=== PATIENT | female | born 1950 | race Caucasian/White ===

== ENCOUNTER 2022-08-30 17:00 | Outpatient (OUT) | payer MEDICARE, SELFPAY ==
[2022-08-30 17:29] LABS: Basophils Absolute Auto 0.1 10^3/uL (0.0-0.1); Eosinophils Absolute Auto 0.3 10^3/uL (0.0-0.7); Hematocrit 41.4 % (36.0-48.0); Immature Granulocytes Abs Auto 0.02 10^3/uL (0.00-0.03); Immature Granulocytes Pct Auto 0.3 % (0.0-0.5); Lymphocytes Absolute Auto 1.8 10^3/uL (1.2-3.8); Mean Corpuscular HGB Conc 33.8 g/dL (29.9-35.2); Mean Corpuscular Hemoglobin 29.2 pg (26.7-34.0); Mean Corpuscular Volume 86.3 fL (81.0-99.0); Mean Platelet Volume 9.5 fL (9.5-13.5); Monocytes Absolute Auto 0.5 10^3/uL (0.3-0.8); Monocytes Percent Auto 7.5 % (1.7-12.0); Neutrophils Absolute Auto 3.7 10^3/uL (1.4-6.5); Neutrophils Percent Auto 59.2 % (43.0-75.0); Platelet Count 224 10^3/uL (150-450); Red Cell Distribution Width 12.7 % (11.0-15.0); White Blood Count 6.3 10^3/uL (4.0-11.0)
[2022-08-30 17:43] LABS: Alanine Aminotransferase 20 U/L (14-59); Albumin Globulin Ratio 1.1; Albumin Level 3.5 g/dL (3.4-5.0); Alkaline Phosphatase 86 U/L (46-116); Aspartate Amino Transferase 15 U/L (15-37); BUN Creatinine Ratio 30.4; Bilirubin Total 0.4 mg/dL (0.2-1.0); Calcium 9.2 mg/dL (8.5-10.1); Carbon Dioxide 27.2 mmol/L (21.0-32.0); Chloride 108 mmol/L (98-107); Chol HDL Ratio 2.1; Cholesterol 121 mg/dL (<=200); Estimated GFR (African America >60 (>=60); Estimated GFR (Non-African Ame >60 (>=60); Globulin 3.1 g/dL; Glucose 110 mg/dL (74-106); HDL Cholesterol 59 mg/dL (40-60); Potassium 4.2 mmol/L (3.5-5.1); Sodium 142 mmol/L (136-145); Total Protein 6.6 g/dL (6.4-8.2); Triglycerides 95 mg/dL (<=150)
== END 2022-08-30 17:01 | disposition home or self-care (01) ==
PROVIDERS: PCP Internal Medicine; Visit Provider Internal Medicine
DX: I11.0 Hypertensive heart disease with heart failure (principal); I50.9 Heart failure, unspecified; E53.8 Deficiency of other specified B group vitamins; E78.5 Hyperlipidemia, unspecified; R82.90 Unspecified abnormal findings in urine
CPT/HCPCS: 36415; 80053; 80061; 82607; 85025; 87086; 87150; 87186

== ENCOUNTER 2022-08-30 21:10 | Outpatient (REF) | payer MEDICARE, SELFPAY | END 2022-08-30 21:11 | disposition home or self-care (01) | LOC: LAB 21:10 | PROVIDERS: PCP Internal Medicine; Visit Provider Internal Medicine | DX: R39.9 Unspecified symptoms and signs involving the genitourinary system (principal) ==

== ENCOUNTER 2022-10-08 16:41 | Outpatient (REF) | payer MEDICARE, SELFPAY | END 2022-10-08 16:42 | disposition home or self-care (01) | LOC: LAB 16:41 | PROVIDERS: PCP Internal Medicine; Visit Provider Internal Medicine | DX: N39.0 Urinary tract infection, site not specified (principal) | CPT/HCPCS: 87086; 87150; 87186 ==

== ENCOUNTER 2022-10-20 13:23 | Emergency (ER) | payer MEDICARE, SELFPAY ==
[2022-10-20] VITALS (22 sets, daily range): BP systolic 122–158; BP diastolic 56–86; PULSE 43–61; RESP 10–25; TEMP 36.3–36.6; O2SAT 92–100; BMI 26.5; BMI 26.3
--- NOTE | 2022-10-20 13:44 | CT_ITS ---
The [address] [address] Patient Name: FITZ GIFFORD MRN: [id number] date: 1950 Sex: F Assigned Patient Location: ED.MAIN Current Patient Location: ER Accession/Order Number: [id number] Exam Date: 10/20/2022 13:52 Report Date: 10/20/2022 14:15 At the request of: HECTOR ROBLES Procedure: CT stroke head/brain wo con CT stroke head/brain wo con, 10/20/2022 1:52 PM EDT INDICATION: Stroke symptoms COMPARISON: Noncontrast CT of the head 09/02/2021, 11/26/2021 TECHNIQUE: Axial CT images of the brain from skull base to vertex, including portions of the face and sinuses, were obtained without contrast. Multiplanar reformatted images were generated and reviewed as needed. FINDINGS: No intracranial mass, hydrocephalus, midline shift or acute hemorrhage. No extra-axial collection. Periventricular and deep white matter microvascular ischemic change. [place]-white matter differentiation is preserved. Remote left temporal lobe infarct. Remote lacunar infarct right head of the caudate nucleus. The paranasal sinuses and mastoid air cells are clear. Orbits are within normal limits. No acute skull fracture. CT/CT stroke head/brain wo con IMPRESSION: No acute intracranial abnormality. Electronically authenticated by: DAKOTA HOOD Date: 10/20/2022 14:15
--- NOTE | 2022-10-20 13:47 | ECG_ITS ---
The [facility] Test Date: 2022-10-20 Pat Name: FITZ GIFFORD Department: Room: - Gender: Female [employer] Developer: : 1950 Requested By: SHAIKH MILLIE Order Number: [id number] Reading MD: INDY MILLS Measurements Intervals [place] Rate: 47 P: 50 VA: 134 QRS: 49 QRSD: 88 T: 52 QT: 472 QTc: 433 Interpretive Statements 1130 Sinus bradycardia 9140 abnormal rhythm ECG No previous ECG available for comparison Electronically Signed On 10-21-2022 7:47:02 EDT by INDY MILLS
[2022-10-20 14:34] LABS: Basophils Absolute Auto 0.1 10^3/uL (0.0-0.1); Eosinophils Absolute Auto 0.3 10^3/uL (0.0-0.7); Eosinophils Percent Auto 4.6 % (0.9-7.0); Hematocrit 41.2 % (36.0-48.0); Hemoglobin 13.6 g/dL (12.0-16.0); Immature Granulocytes Abs Auto 0.02 10^3/uL (0.00-0.03); Immature Granulocytes Pct Auto 0.3 % (0.0-0.5); Lymphocytes Absolute Auto 1.8 10^3/uL (1.2-3.8); Lymphocytes Percent Auto 30.8 % (20.5-60.0); Mean Corpuscular Hemoglobin 29.4 pg (26.7-34.0); Mean Corpuscular Volume 89.2 fL (81.0-99.0); Monocytes Absolute Auto 0.5 10^3/uL (0.3-0.8); Monocytes Percent Auto 8.6 % (1.7-12.0); Neutrophils Absolute Auto 3.2 10^3/uL (1.4-6.5); Neutrophils Percent Auto 54.7 % (43.0-75.0); Platelet Count 182 10^3/uL (150-450); Red Blood Count 4.62 10^6/uL (4.20-5.40); White Blood Count 5.8 10^3/uL (4.0-11.0)
[2022-10-20 14:48] LABS: INR 1.01; Prothrombin Time 10.7 sec (9.0-11.6)
[2022-10-20 14:51] LABS: Alanine Aminotransferase 23 U/L (14-59); Albumin Level 3.2 g/dL (3.4-5.0); Alkaline Phosphatase 78 U/L (46-116); Anion Gap 10.3; Aspartate Amino Transferase 20 U/L (15-37); BUN Creatinine Ratio 23.9; Bilirubin Total 0.5 mg/dL (0.2-1.0); Calcium 8.9 mg/dL (8.5-10.1); Carbon Dioxide 26.4 mmol/L (21.0-32.0); Chloride 107 mmol/L (98-107); Estimated GFR (African America >60 (>=60); Estimated GFR (Non-African Ame >60 (>=60); Globulin 3.1 g/dL; Glucose 90 mg/dL (74-106); Potassium 3.7 mmol/L (3.5-5.1); Sodium 140 mmol/L (136-145); Total Protein 6.3 g/dL (6.4-8.2)
[2022-10-20 14:54] LABS: Troponin I High Sensitivity 5.5 pg/mL (4.0-51.3)
[2022-10-20 15:08] LABS: Ethanol <3 mg/dL
[2022-10-20] MEDS: MECLIZINE HCL 12.5 MG TABLET 25 MG PO (15:28)
[2022-10-20 16:00] LABS: Bilirubin Urine NEGATIVE (NEGATIVE); Blood Urine NEGATIVE (NEGATIVE); Clarity Urine CLEAR (CLEAR); Color Urine LT. YELLOW (YELLOW); Glucose Urine UA NEGATIVE (NEGATIVE); Ketones Urine NEGATIVE (NEGATIVE); Leukocyte Esterase Urine NEGATIVE (NEGATIVE); Nitrite Urine NEGATIVE (NEGATIVE); Protein Urine NEGATIVE (NEG/TRACE); Specific Gravity Urine <=1.005 (1.005-1.025); Urine Microscopic Indicated NO; Urobilinogen Urine 0.2 EU/dL (0.2-1.0)
--- NOTE | 2022-10-20 18:42 | ED.GENADUL1 ---
HPI - General Adult General Chief complaint: Neuro Symptoms/Deficit Stated complaint: DIZZY Time Seen by Provider: 10/20/22 13:47 Source: patient Mode of arrival: walk-in Limitations: no limitations History of Present Illness HPI narrative: The patient have history of previous stroke coming to the ER with a 24 hours history of vertigo she mentioned that the room started spinning all of a sudden yesterday and she also started having the symptoms today there was no nausea no vomiting no headache No chest pain and no weakness Related Data Home Medications Medication Instructions Recorded Confirmed amlodipine 2.5 mg tablet 2.5 mg PO DAILY 10/20/22 10/20/22 aspirin 81 mg chewable tablet 1 tab PO DAILY 10/20/22 10/20/22 baclofen 20 mg tablet 20 mg PO TID 10/20/22 10/20/22 clonazepam 0.5 mg tablet 0.5 mg PO BID 10/20/22 10/20/22 ferrous sulfate 325 mg (65 mg 325 mg PO DAILY 10/20/22 10/20/22 iron) tablet (FeroSul) furosemide 20 mg tablet 40 mg PO .every other day 10/20/22 10/20/22 metoprolol succinate 25 mg 25 mg PO DAILY 10/20/22 10/20/22 tablet,extended release 24 hr potassium chloride 10 mEq 10 meq PO DAILY 10/20/22 10/20/22 capsule,extended release quetiapine 50 mg tablet 50 mg PO DAILY 10/20/22 10/20/22 rosuvastatin 10 mg tablet 10 mg PO DAILY 10/20/22 10/20/22 topiramate 50 mg tablet 50 mg PO DAILY 10/20/22 10/20/22 Allergies Allergy/AdvReac Type Severity Reaction Status Date / Time Penicillins AdvReac Severe itch Verified 10/20/22 13:38 Review of Systems ROS Status of ROS 10 or more systems reviewed and unremarkable except as noted in history and below [facility] Social History Smoking status: Former smoker Exam Narrative Exam Narrative: Nurses notes and vital signs reviewed and patient is not hypoxic. General: Well-appearing and in no apparent distress. Skin: Warm, dry, no pallor noted. No rash. Head: Normocephalic, atraumatic. Neck: Supple, non-tender. Eye: Pupils are equal, round and EOMI. No scleral icterus. Ears, Nose, Mouth, and Throat: TM are clear, no nasal mucosal hypertrophy. Oral mucosa is moist, no posterior oropharynx erythema, uvula is mid-line Cardiovascular: Regular Rate and Rhythm without murmur, gallop or rub. Respiratory: No accessory muscle use or respiratory distress. Lungs are clear to auscultation, no wheezing, rales or rhonchi Chest Wall: no tenderness Back: No midline thoracic or lumbar vertebral tenderness. No CVA tenderness Musculoskeletal: normal ROM, no calf or popliteal tenderness, no lower extremity edema/swelling GI: Abdomen is soft, non-distended. Normal bowel sounds. No masses appreciated. No tenderness to palpation. No rebound, guarding, or rigidity noted. Neurological: A&O x4. No cranial nerve dysfunction observed. No truncal ataxia. Moves all extremities. Sensation intact. Psychiatric: Cooperative and interactive. Normal mood and affect. The patient's speech is slow but normal Constitutional Vital Signs, click to edit/add: Last Vital Signs Temp 97.3 F L 10/20/22 16:04 Pulse 49 L 10/20/22 16:04 Resp 14 10/20/22 16:04 BP 138/65 10/20/22 16:04 Pulse Ox 98 10/20/22 16:04 O2 Del Method Room Air 10/20/22 16:04 Course Vital Signs Vital signs: Vital Signs Temperature 97.8 F 10/20/22 13:33 Pulse Rate 60 10/20/22 13:33 Respiratory Rate 16 10/20/22 13:33 Blood Pressure 154/75 H 10/20/22 13:33 Pulse Oximetry 100 10/20/22 13:33 Oxygen Delivery Method Room Air 10/20/22 13:33 Temperature 97.3 F L 10/20/22 16:04 Pulse Rate 49 L 10/20/22 16:04 Respiratory Rate 14 10/20/22 16:04 Blood Pressure 138/65 10/20/22 16:04 Pulse Oximetry 98 10/20/22 16:04 Oxygen Delivery Method Room Air 10/20/22 16:04 Medical Decision Making MDM Narrative Medical decision making narrative: The patient EKG showing sinus rhythm heart rate was in the 40s no ST elevation or depression The patient CBC and chemistry showed no acute pathology and CT head as well was within negative The patient was treated in the ER with meclizine after which she was feeling better and she got to go to the bathroom multiple times The patient case was discussed with her primary care doctor Barb and he mentioned that the patient usually have vertigo as one of her complaints and is not a new complaint Right now the patient is able to ambulate with no difficulty she was discharged home with supportive care to follow-up with her doctor next week The patient is to follow up with primary care physician in next 2-3 days or to return to the emergency department should any of the signs or symptoms worsen or new symptoms develop. The patient agrees with the following Diagnosis and Treatment plan and the patient will be discharged home. Lab Data Labs: Lab Results 10/20/22 10/20/22 Range/Units 13:30 15:20 WBC 5.8 (4.0-11.0) 10^3/uL RBC 4.62 (4.20-5.40) 10^6/uL Hgb 13.6 (12.0-16.0) g/dL Hct 41.2 (36.0-48.0) % MCV 89.2 (81.0-99.0) fL MCH 29.4 (26.7-34.0) pg MCHC 33.0 (29.9-35.2) g/dL RDW 13.0 (11.0-15.0) % Plt Count 182 (150-450) 10^3/uL MPV 10.0 (9.5-13.5) fL Neut % (Auto) 54.7 (43.0-75.0) % Lymph % (Auto) 30.8 (20.5-60.0) % Murray % (Auto) 8.6 (1.7-12.0) % Eos % (Auto) 4.6 (0.9-7.0) % Baso % (Auto) 1.0 (0.2-2.0) % Neut # (Auto) 3.2 (1.4-6.5) 10^3/uL Lymph # (Auto) 1.8 (1.2-3.8) 10^3/uL Murray # (Auto) 0.5 (0.3-0.8) 10^3/uL Eos # (Auto) 0.3 (0.0-0.7) 10^3/uL Baso # (Auto) 0.1 (0.0-0.1) 10^3/uL Abs Immat Gran (auto) 0.02 (0.00-0.03) 10^3/uL Imm/Tot Granulo (auto) 0.3 (0.0-0.5) % PT 10.7 (9.0-11.6) sec INR 1.01 Sodium 140 (136-145) mmol/L Potassium 3.7 (3.5-5.1) mmol/L Chloride 107 (98-107) mmol/L Carbon Dioxide 26.4 (21.0-32.0) mmol/L Anion Gap 10.3 BUN 21.0 H (7.0-18.0) mg/dL Creatinine 0.88 (0.55-1.02) mg/dL Est GFR ( Amer) >60 (>=60) Est GFR (Non-Af Amer) >60 (>=60) BUN/Creatinine Ratio 23.9 Glucose 90 (74-106) mg/dL Calcium 8.9 (8.5-10.1) mg/dL Total Bilirubin 0.5 (0.2-1.0) mg/dL AST 20 (15-37) U/L ALT 23 (14-59) U/L Alkaline Phosphatase 78 (46-116) U/L Troponin I High Sens 5.5 (4.0-51.3) pg/mL Total Protein 6.3 L (6.4-8.2) g/dL Albumin 3.2 L (3.4-5.0) g/dL Globulin 3.1 g/dL Albumin/Globulin Ratio 1.0 Urine Color Lt. yellow (YELLOW) Urine Clarity Clear (CLEAR) Urine pH 7.0 (5.0-9.0) Ur Specific Gilbert <=1.005 A (1.005-1.025) Urine Protein Negative (NEG/TRACE) mg/dL Urine Glucose (UA) Negative (NEGATIVE) mg/dL Urine Ketones Negative (NEGATIVE) mg/dL Urine Occult Blood Negative (NEGATIVE) Urine Nitrite Negative (NEGATIVE) Urine Bilirubin Negative (NEGATIVE) Urine Urobilinogen 0.2 (0.2-1.0) EU/dL Ur Leukocyte Esterase Negative (NEGATIVE) Ethanol Quant <3 mg/dL Discharge Plan Discharge Chief Complaint: Neuro Symptoms/Deficit Clinical Impression: Vertigo Patient Disposition: Home, Self-Care Time of Disposition Decision: 15:41 Condition: Good Mode of Transportation: Private Vehicle Prescriptions / Home Meds: No Action amlodipine 2.5 mg tablet 2.5 mg PO DAILY aspirin 81 mg tablet,chewable 1 tab PO DAILY baclofen 20 mg tablet 20 mg PO TID clonazepam 0.5 mg tablet 0.5 mg PO BID ferrous sulfate [FeroSul] 325 mg (65 mg iron) tablet 325 mg PO DAILY furosemide 20 mg tablet 40 mg PO .every other day metoprolol succinate 25 mg tablet extended release 24 hr 25 mg PO DAILY potassium chloride 10 mEq capsule, extended release 10 meq PO DAILY quetiapine 50 mg tablet 50 mg PO DAILY rosuvastatin 10 mg tablet 10 mg PO DAILY topiramate 50 mg tablet 50 mg PO DAILY Instructions: Vertigo (ED) Stand Alone Forms: Portal Instructions Referrals: Shaikh Day MD [Primary Care Provider] - 1 week Discharge Date/Time: 10/20/22 16:07
== END 2022-10-20 16:07 | disposition home or self-care (01) ==
PROVIDERS: Emergency Provider Emergency Medicine; PCP Internal Medicine
DX: R42 Dizziness and giddiness (principal); Z86.73 Personal history of transient ischemic attack (TIA), and cerebral 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; Z79.82 Long term (current) use of aspirin; Z79.899 Other long term (current) drug therapy; Z87.891 Personal history of nicotine dependence
CPT/HCPCS: 36415; 70450; 80053; 80320; 81003; 84484; 85025; 85610; 93005; 99285

== ENCOUNTER 2022-11-22 14:29 | Outpatient (OUT) | payer MEDICARE, SELFPAY ==
--- NOTE | 2022-11-22 | MR_ITS ---
The [address] [address] Patient Name: FITZ GIFFORD MRN: [id number] date: 1950 Sex: F Assigned Patient Location: MRI Current Patient Location: MRI Accession/Order Number: [id number] Exam Date: 11/22/2022 14:55 Report Date: 11/22/2022 16:25 At the request of: SHAIKH MILLIE Procedure: MR head/brain wo con EXAM: MR head/brain wo con HISTORY: Cerebral infraction, unspecified I63.9 COMPARISON: CT brain 10/22/2022 TECHNIQUE: MRI of the brain was performed without contrast. FINDINGS: There is no restricted diffusion to suggest acute infarct. There is no midline shift, mass effect, or abnormal extraaxial fluid collections. The cortical sulci and ventricular system are within normal limits for age. There are areas of chronic infarct at left posterior temporal and parietal lobes. There are ex vacuo dilatation of temporal and occipital horns of the left lateral ventricle. There are remote lacunar infarcts at the right caudate nucleus, right fowler radiata and right cerebellar hemisphere. There are multiple scattered and confluent foci of T2/FLAIR signal abnormality in the subcortical and periventricular white matter, likely represent chronic microvascular ischemic changes. The major intracranial flow voids are visualized. The cerebellar tonsils are normal in position. The orbits are unremarkable. The paranasal sinuses are essentially clear. There is mild right mastoid effusion. MR/MR head/brain wo con IMPRESSION: No acute intracranial abnormality. Areas of chronic infarct at left posterior temporal and parietal lobes. Remote lacunar infarcts at the right caudate nucleus, right fowler radiata and right cerebellar hemisphere. Moderate chronic microvascular ischemic changes Electronically authenticated by: AMADEO TRANU Date: 11/22/2022 16:25
== END 2022-11-22 14:30 | disposition home or self-care (01) ==
LOC: MRI 14:30
PROVIDERS: PCP Internal Medicine; Visit Provider Internal Medicine
DX: I63.9 Cerebral infarction, unspecified (principal)
CPT/HCPCS: 70551

== ENCOUNTER 2023-02-13 14:51 | Outpatient (OUT) | payer MEDICARE, SELFPAY ==
[2023-02-13 15:37] LABS: Anion Gap 11.3; Calcium 9.2 mg/dL (8.5-10.1); Carbon Dioxide 26.2 mmol/L (21.0-32.0); Chloride 108 mmol/L (98-107); Estimated GFR (African America >60 (>=60); Estimated GFR (Non-African Ame >60 (>=60); Glucose 82 mg/dL (74-106); Potassium 3.5 mmol/L (3.5-5.1); Sodium 142 mmol/L (136-145)
[2023-02-13 15:50] LABS: Bilirubin Urine NEGATIVE (NEGATIVE); Blood Urine NEGATIVE (NEGATIVE); Clarity Urine CLEAR (CLEAR); Color Urine LT. YELLOW (YELLOW); Glucose Urine UA NEGATIVE (NEGATIVE); Ketones Urine NEGATIVE (NEGATIVE); Leukocyte Esterase Urine NEGATIVE (NEGATIVE); Nitrite Urine NEGATIVE (NEGATIVE); Protein Urine NEGATIVE (NEG/TRACE); Specific Gravity Urine 1.015 (1.005-1.025); Urobilinogen Urine 0.2 EU/dL (0.2-1.0); pH Urine 6.5 (5.0-9.0)
== END 2023-02-13 14:52 | disposition home or self-care (01) ==
LOC: LAB 14:53
PROVIDERS: PCP Internal Medicine; Visit Provider Nurse Practitioner
DX: R06.09 Other forms of dyspnea (principal); R60.0 Localized edema; I63.9 Cerebral infarction, unspecified; R30.0 Dysuria; I25.10 Atherosclerotic heart disease of native coronary artery without angina pectoris; I10 Essential (primary) hypertension; E78.2 Mixed hyperlipidemia
CPT/HCPCS: 36415; 80048; 81003; 87086; 87150; 87186

== ENCOUNTER 2023-02-20 14:35 | Outpatient (OUT) | payer MEDICARE, SELFPAY ==
--- OUTSIDE RECORDS SUMMARY | 2023-02-20 14:56 | XMS_ITS | CCD ---
Author Name Unknown Address [address] [place] [address] Organization [facility] Care Team Providers Care Physical Fitness Teacher Name Role Phone Denver Juarez Unavailable Susie Arrington Unavailable MD Eddy Day Primary Care Provider MD Susie Arrington R Attending Provider MD Gerry Hartley Primary Care Provider MD Eddy Day Attending Provider MD Denver Juarez Attending Provider [phone] Ilda Das Unavailable MD Eddy Day Primary Care Provider MD Gerry Hartley Primary Care Provider MD Eddy Day Attending Provider DO Rafiq Bahena Emergency Provider [phone] MD Ashleigh Card Admit Provider MD Ashleigh Card Attending Provider LESTER Castañeda Other Provider Unavailable DO Tye Mendoza Other Provider [phone] MD Betito Arellano Other Provider [phone] MD Aneesh Zendejas Other Provider [phone] MD Shavon Leos Other Provider [phone] MD Brayan Ribera Other Provider CÉSAR Arenas Other Provider MD Shefali Garibay Other Provider MD Vannessa Nava Other Provider MD Alissa Young Other Provider Jose [facility] Maddie Westbrook Other Provider MD Anna Valladares Attending Provider NO FAMILY PHYSICIAN, 837 Primary Care Unavail able MIKE VIDES, - LUIS Attending Unavaila MD Eddy Swenson Primary Care Provider DO Rafiq Bahena Emergency Provider Al Colette Cruz MD [facility] Ad[facility] Provider MD Anna Valladares Attending Provider [phone] MD Gerry Hartley Primary Care Provider MD Eddy Day Attending Provider [phone] Admitting Unavailable DAVID, LIZ Attending Unavailable FAWWAD, DE OLIVEIRA H Primary Care Unavailable FAWWAD, DE OLIVEIRA H Admitting Unavailable FAWWAD, DE OLIVEIRA H Attending Unavailable FAWWAD, DE OLIVEIRA H Primary Care Unavailable Nico, DR Senior Consulting Unavailable FAWWAD, DE OLIVEIRA H Consulting Unavailable DAVID, LIZ Admitting Unavailable DAVID, LIZ Attending Unavailable FAWWAD, DE OLIVEIRA H Primary Care Unavailable DAVID, LIZ Consulting Unavailable FAWWAD, DE OLIVEIRA H Primary Care Unavailable ALONSO JACOBS Admitting Unavailable ALONSO JACOBS Attending Unavailable Natacha Cerna Consulting Unavailable ALONSO JACOBS Consulting Unavailable SHANIA WASHINGTON Consulting Unavaila MANDI Chaidez Consulting Unavailable FAWWAD, DE OLIVEIRA H Primary Care Unavailable YANIV, DR RAMSAY Admitting Unavailable YANIV, DR RAMSAY Attending Unavailable YANIV, DR RAMSAY Consulting Unavailable GABI, DR ORTIZ Consulting Unavailable LUCI MARADIAGA Consulting Unavailable MITZI LOWRY Consulting Unavailable BASIM CABAN Consulting Unavailable DAVID, LIZ Admitting Unavailable DAVID, LIZ Attending Unavailable FAWWAD, DE OLIVEIRA H Primary Care Unavailable FAWWAD, DE OLIVEIRA H Admitting Unavailable FAWWAD, DE OLIVEIRA H Attending Unavailable FAWWAD, DE OLIVEIRA H Primary Care Unavailable DR MITZI CHAU Consulting Unavailable FAWWAD, DE OLIVEIRA H Consulting Unavailable RAYMUNDO, MEGHANN Admitting Unavailable RAYMUNDO, MEGHANN Attending Unavailable FAWWAD, DE OLIVEIRA H Primary Care Unavailable RAYMUNDO, MEGHANN Consulting Unavailable FAWWAD, DE OLIVEIRA H Admitting Unavailable FAWWAD, DE OLIVEIRA H Attending Unavailable FAWWAD, DE OLIVEIRA H Primary Care Unavailable FAWWAD, DE OLIVEIRA H Consulting Unavailable MIRI BALTAZAR Consulting Unavailable FAWWAD, DE OLIVEIRA H Admitting Unavailable FAWWAD, DE OLIVEIRA H Attending Unavailable FAWWAD, DE OLIVEIRA H Primary Care Unavailable FAWWAD, DE OLIVEIRA H Consulting Unavailable Indra Lozada Consulting Unavailable FAWWAD, DE OLIVEIRA H Admitting Unavailable FAWWAD, DE OLIVEIRA H Attending Unavailable FAWWAD, DE OLIVEIRA H Primary Care Unavailable FAWWAD, DE OLIVEIRA H Consulting Unavailable FAWWAD, DE OLIVEIRA H Admitting Unavailable FAWWAD, DE OLIVEIRA H Attending Unavailable FAWWAD, DE OLIVEIRA H Primary Care Unavailable DR MITZI CHAU Consulting Unavailable FAWWAD, DE OLIVEIRA H Consulting Unavailable FAWWAD, DE OLIVEIRA H Admitting Unavailable FAWWAD, DE OLIVEIRA H Attending Unavailable FAWWAD, DE OLIVEIRA H Primary Care Unavailable DR MITZI CHAU Consulting Unavailable FAWWAD, DE OLIVEIRA H Consulting Unavailable FAWWAD, DE OLIVEIRA H Primary Care Unavailable ALONSO JACOBS Admitting Unavailable ALONSO JACOBS Attending Unavailable ALONSO JACOBS Consulting Unavailable DORIAN GREENE Consulting Unavailable NATACHA CRUZ Consulting Unavailable FAWWAD, DE OLIVEIRA H Primary Care Unavailable NAEEM, DR GERRY Carrasco Admitting Unavailable NAEEM, DR GERRY Carrasco Attending Unavailable CHERISE, DR INDRA Carias Consulting Unavaildelia LUONG, DR INDRA Carias Procedure Practitioner Julia vailable NAEEM, DR GERRY Carrasco Consulting Unavailable ALONSO JACOBS Procedure Practitioner Unavail able ALONSO JACOBS Consulting Unavailable LYNN OLSON Consulting Unavailable INDRA DE LA ROSA Consulting Unavailable GALINDO LARRY Consulting Unavailable FAWWAD, DE OLIVEIRA H Primary Care Unavailable SHERRI MONTAGUE Consulting Unavailable EDDI, SHERRI Admitting Unavailable SHERRI MONTAGUE Attending Unavailable MARYSE LANGFORD Consulting Unavailable FAWWAD, DE OLIVEIRA H Attending Unavailable FAWWAD, DE OLIVEIRA H Primary Care Unavailable FAWWAD, DE OLIVEIRA H Consulting Unavailable FAWWAD, DE OLIVEIRA H Admitting Unavailable FAWWAD, DE OLIVEIRA H Primary Care Unavailable RADHA, ALONSO Admitting Unavailable ALONSO JACOBS Attending Unavailable JEAN-PIERRE GIRALDO Consulting Unavailable Natacha Cerna Consulting Unavailable ALONSO JACOBS Consulting Unavailable MD Eddy Day Primary Care Provider CÉSAR Harris Attending Provider [phone] Earline Harris Unavailable Kori Temple Unavailable Faajay, De Oliveira Primary Care Unavailable Earline Harris Admitting Unavailable Earline Harris Attending Unavailable Denver Juarez Attending Unavailabl e Fawwad, De Oliveira Primary Care Unavailable Denver Juarez Admitting Unavailabl e Fawwad, De Oliveira Admitting Unavailable Faajay, De Oliveira Primary Care Unavailable Shaikh Dya Attending Unavailable NICOLAS CARRILLO Attending Unavailable RAYMUNDO, MEGHANN Attending Unavailable MEGHANN FONSECA Attending Unavailable GERRY HARTLEY Referring Unavailable GERRY HARTLEY Primary Care Unavailable Allergies Allergy Classification Reported Allergen(s) Allergy Type Date of Onset Reaction(s) Facility (14 sources) Penicillin G Drug Allergy Unknown [facility] Other (8 sources) Penicillins; 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: [Penicillins] Allergy to substance 8 [facility] (1 source) Penicillin Drug Allergy 3 [facility] Medications Current Medications Medication Drug Class(es) Dates Sig (Normalized) Sig (Original) acetaminophen 325 mg oral tablet (20 sources) Start: 03-26-2019 take 325-650 mg by mouth once daily Acetaminophen Active 325 - 650 MG PO Daily March 26, 2019 4:28pm Start: 04-18-2018 End: 03-26-2019 take 325 mg by mouth every four hours Acetaminophen Discontinued 325 MG PO Q4H 0 April 18, 2018 12:00am March 26, 2019 4:28pm acetaminophen 325 mg / HYDROcodone bitartrate 5 mg oral tablet (1 source) Opioid Agonist Start: 03-31-2021 take 1-2 tablets by mouth every four to six hours as needed HYDROcodone-Acetaminophen 5-325 MG 1-2 tablet as needed Orally every 4-6 hrs for 7 days Mar, Active amLODIPine 2.5 mg oral tablet (1 source) Dihydropyridine Calcium Channel Jimmy take 1 tablet by mouth every twenty-fou r hours amLODIPine Besylate 2.5 MG 1 tablet Orally Once a day Active aspirin 81 mg delayed release oral tablet (20 sources) Platelet Aggregation Inhibitor, Nonsteroidal Anti-inflammatory Drug Start: 03-23-2020 take 81 mg by mouth once daily Aspirin Active 81 MG PO Daily March 23, 2020 12:00am Start: 03-26-2019 End: 03-23-2020 take 81 mg by mouth once daily in the morning Aspirin Discontinued 81 MG PO Every morning March 26, 2019 4:28pm March 23, 2020 12:03pm Start: 04-10-2018 End: 03-26-2019 take 81 mg by mouth once daily Aspirin Discontinued 81 MG PO Daily 0 April 18, 2018 12:00am March 26, 2019 4:28pm baclofen 20 mg oral tablet (17 sources) gamma-Aminobutyric Acid-ergic Agonist Start: 04-05-2018 take 20 mg by mouth three times daily Baclofen Active 20 MG PO Three times daily April 05, 2018 12:00am take 1 tablet by nemesio twice daily at mealtime as needed Baclofen 20 MG 1 tablet Administer witho ut regards to meals as needed Orally Twice a day Active take 1 tablet by mouth every eig ht hours Baclofen 20 MG 1 tablet with food or milk Orally every 8 hrs for 30 day(s) Active cephalexin 500 mg oral capsule (3 sources) Cephalosporin Antibacterial Start: 11-22-2021 take 500 mg by mouth three times daily Cephalexin Active 500 MG PO Three times daily 15 5 November 21, 2021 11:00pm clonazePAM 0.5 mg oral tablet (20 sources) Benzodiazepine Start: 12-12-2018 take 0.5 mg by mouth twice daily Clonazepam Active 0.5 MG PO Twice daily December 11, 2018 11:00pm Start: 04-05-2018 End: 04-18-2018 take 0.5 mg by mouth twice daily Clonazepam Discontinued 0.5 MG PO Twice daily April 05, 2018 12:00am April 18, 2018 6:51am take 1 tablet by nemesio th every twenty-four hours clonazePAM 0.5 MG 1 tablet at bedtime Orally Once a day Active clopidogrel 75 mg oral tablet (16 sources) P2Y12 Platelet Inhibitor Start: 12-12-2018 take 1 tablet by mouth once daily in the morning Clopidogrel (Plavix) 75 mg Tablet Active 75 MG PO Every morning December 11, 2018 11:00pm diclofenac sodium 0.01 mg/mg topical gel (6 sources) Nonsteroidal Anti-inflammatory Drug Start: 07-12-2021 Voltaren 1 % apply 1-2 grams to affected area Transdermal twice daily for 30 days Jul, Active doxycycline hyclate 100 mg oral capsule (1 source) Tetracycline-class Drug Start: 03-31-2021 take 1 capsule by mouth every twelve hours Doxycycline Hyclate 100 MG 1 capsule Orally Twice a day for 5 day(s) Mar, Active FeroSul (2 sources) FeroSul Active ferrous sulfate 325 mg oral tablet (15 sources) Start: 11-21-2021 take 1 tablet by mouth once daily Ferrous Sulfate (Ferosul) 325 mg (65 mg iron) tablet Active 325 MG PO Daily November 20, 2021 11:00pm Start: 12-12-2018 End: 02-18-2020 take 324 mg by mouth every other week Ferrous Sulfate Discontinued 324 MG PO EVERY 2 WEEKS December 12, 2018 9:27am February 18, 2020 12:28pm Start: 04-18-2018 End: 12-12-2018 take 324 mg by mouth twice daily Ferrous Sulfate Discontinued 324 MG PO Twice daily April 18, 2018 12:00am December 12, 2018 9:28am furosemide 20 mg oral tablet (18 sources) Loop Diuretic Start: 11-21-2021 take 20 mg by mouth once daily in the morning Furosemide Active 20 MG PO Every morning November 20, 2021 11:00pm take 2 tablets by mouth every ot her day Furosemide 20 MG 2 tablets Orally every other day Active ondansetron 8 mg disintegrating oral tablet (4 sources) Serotonin-3 Receptor Antagonist Start: 09-22-2021 take 1 tablet by mouth every eight hours as needed Ondansetron 8 MG 1 tablet on the tongue and allow to dissolve as needed Orally every 8 hours as needed for 3 days Sep, Active QUEtiapine 50 mg oral tablet (19 sources) Atypical Antipsychotic Start: 03-26-2019 take 50 mg by mouth once daily at bedtime Quetiapine Active 50 MG PO Daily at bedtime March 26, 2019 12:00am rosuvastatin calcium 10 mg oral tablet (20 sources) HMG-CoA Reductase Inhibitor Start: 12-12-2018 take 1 tablet by mouth once daily at bedtime Rosuvastatin (Crestor) 10 mg Tablet Active 10 MG PO Daily at bedtime December 11, 2018 11:00pm Start: 04-10-2018 End: 05-18-2018 take 1 tablet by mouth at bedtime Rosuvastatin (Crestor) 10 mg Tablet Discontinued 10 MG PO Bedtime April 18, 2018 6:54am May 17, 2018 11:02pm take 1 tablet by nemesio th every twenty-four hours Rosuvastatin Calcium 20 MG 1 tablet Orally Once a day Active Rosuvastatin Jimy cium Active topiramate 50 mg oral tablet (5 sources) Start: 11-21-2021 take 50 mg by mouth once daily Topiramate Active 50 MG PO Daily November 20, 2021 11:00pm Vitamin B-12 1000 MCG (7 sources) take 1 tablet by mouth once daily Vitamin B-12 1000 MCG 1 tablet Orally Once a day Active vitamin b12 2 mg extended release oral tablet (11 sources) Vitamin B12 Start: 11-22-2021 Cyanocobalamin (Vitamin B-12) (Vitamin B-12) 2,000 mcg Tablet Extended Release Active 1000 MCG PO Daily November 22, 2021 3:44pm Start: 03-23-2020 End: 11-22-2021 take 1 tablet by mouth once daily Cyanocobalamin (Vitamin B-12) (Vitamin B-12) 2,000 mcg Tablet Extended Release Discontinued 2000 MCG PO Daily March 23, 2020 12:00am November 22, 2021 3:44pm take 1 tablet by nemesio th every twenty-four hours Vitamin B-12 1000 MCG 1 tablet Orally Once a day Not-Taking Completed/Discontinued Medications Medication Drug Class(es) Dates Sig (Normalized) Sig (Original) cetirizine hydrochloride 10 mg oral tablet (5 sources) Histamine-1 Receptor Antagonist Start: 02-18-2020 End: 11-21-2021 take 1 tablet by mouth once daily Cetirizine (All Day Allergy (Cetirizine)) 10 mg Tablet Discontinued 10 MG PO Daily February 18, 2020 12:00am November 21, 2021 10:26am docusate sodium 100 mg oral capsule (19 sources) Start: 04-18-2018 End: 12-12-2018 take 100 mg by mouth twice daily Docusate Sodium Discontinued 100 MG PO Twice daily April 18, 2018 12:00am December 12, 2018 9:29am take [address] [facility] every twenty-four hours Docusate Sodium 100 MG 1 capsule as needed Orally Once a day for 30 day(s) Not-Taking hydroCHLOROthiazide 12.5 mg oral tablet (5 sources) Thiazide Diuretic Start: 12-12-2018 End: 03-23-2020 take 12.5 mg by mouth once daily in the morning Hydrochlorothiazide Discontinued 12.5 MG PO Every morning December 11, 2018 11:00pm March 23, 2020 12:05pm hydroCHLOROthiazide 12.5 mg / lisinopril 10 mg oral tablet (20 sources) Thiazide Diuretic, Angiotensin Converting Enzyme Inhibitor Start: 04-05-2018 End: 03-26-2019 take 1 tablet by mouth once daily Lisinopril-Hydrochloro thiazide Discontinued 1 TAB PO Daily April 18, 2018 6:54am March 26, 2019 4:28pm Lisinopril-hydro CHLOROthiazide Active ibuprofen 800 mg oral tablet (5 sources) Nonsteroidal Anti-inflammatory Drug Start: 04-05-2018 End: 04-18-2018 take 800 mg by mouth three times daily Ibuprofen Discontinued 800 MG PO Three times daily April 05, 2018 12:00am April 18, 2018 6:51am 24 hr metoprolol succinate 25 mg extended release oral tablet (20 sources) beta-Adrenergic Jimmy Start: 04-05-2018 End: 11-22-2021 take 25 mg by mouth once daily in the morning Metoprolol Succinate Discontinued 25 MG PO Every morning March 26, 2019 4:33pm November 22, 2021 12:21pm take 1 capsule by mouth once shayna ly Metoprolol Succinate 25 MG 1 capsule Orally Once a day for 30 day(s) Active naproxen 500 mg oral tablet (5 sources) Nonsteroidal Anti-inflammatory Drug Start: 04-05-2018 End: 04-18-2018 take 500 mg by mouth twice daily Naproxen Discontinued 500 MG PO Twice daily April 05, 2018 12:00am April 18, 2018 6:51am traZODone (10 sources) Serotonin Reuptake Inhibitor Start: 03-26-2019 End: 03-26-2019 Trazodone Discontinued TABLET March 26, 2019 12:00am March 26, 2019 5:06pm Start: 03-26-2019 End: 03-26-2019 Trazodone Discontinued TABLE T March 26, 2019 1:00am March 26, 2019 6:06pm Start: 06-05-2018 take 1 tablet by nemesio th every twenty-four hours traZODone HCl 100 MG 1 tablet at bedtime Orally Once a day for 30 day(s) May, Not-Taking triamcinolone acetonide 40 mg/ml injectable suspension (10 sources) Corticosteroid Start: 05-31-2021 Kenalog-40 May, 20 mg Problems Active Problems Problem Classification Problem Date Documented Da te Episodic/Chronic Acute and unspecified renal failure (8 sources) Injury of kidney; 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: [Acute kidney failure, unspecified] Onset: 10-25-2021 11-21-2021 Episodic Acute cerebrovascular disease (20 sources) Cerebrovascular accident due to thrombus of left middle cerebral artery; 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: [Cerebral infarction due to thrombosis of left middle cerebral artery] Onset: 01-18-2022 04-11-2018 Chronic Administrative/social admission (8 sources) Other reduced mobility; 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: [Impaired mobility and activities of daily living] 04-11-2018 Episodic Cardiac dysrhythmias (10 sources) Bradycardia; 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: [Bradycardia, unspecified] 11-21-2021 Episodic Chronic kidney disease (1 source) Chronic kidney disease; 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: [CHRONIC KIDNEY DISEASE STAGE 3A] Onset: 10-25-2021 Congestive heart failure; nonhypertensive (1 source) Heart failure, unspecified; 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: [HEART FAILURE UNSPECIFIED] Onset: 01-31-2022 Chronic Coronary atherosclerosis and other heart disease (8 sources) Atherosclerotic heart disease of inupiat coronary artery without angina pectoris; 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: [Other forms of angina pectoris] Onset: 02-21-2022 Chronic Deficiency and other anemia (1 source) Iron deficiency anemia secondary to blood loss (chronic); 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: [IRON DEFIC ANEMIA SEC BLD LOSS CHRN] Onset: 10-25-2021 Chronic Deficiency and other anemia (5 sources) Anemia; 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: [Anemia, unspecified] 04-11-2018 Episodic Disorders of lipid metabolism (9 sources) Hyperlipidemia; 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: [Hyperlipidemia, unspecified] Onset: 01-19-2022 04-11-2018 Chronic Essential hypertension (10 sources) Hypertensive disorder; 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: [Essential (primary) hypertension] Onset: 01-18-2022 04-11-2018 Chronic Fluid and electrolyte disorders (2 sources) Hypokalemia; 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: [Dehydration] Onset: 08-01-2021 Episodic Genitourinary symptoms and ill-defined conditions (7 sources) Dysuria; 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: [Dysuria] Onset: 03-02-2022 Episodic Headache; including migraine (1 source) Headache; including migraine; 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: [HEADACHE UNSPECIFIED] Onset: 08-01-2021 Heart valve disorders (1 source) Nonrheumatic mitral (valve) insufficiency; 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: [NONRHEUMATIC MITRAL INSUFFICIENCY] Onset: 02-27-2022 Chronic Hypertension with complications and secondary hypertension (1 source) Hypertensive chronic kidney disease with stage 1 through stage 4 chronic kidney disease, or unspecified chronic kidney disease; 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: [HTN CKD W/STAGE 1-4 CKD/UNS CKD] Onset: 11-28-2021 Chronic Intracranial injury (7 sources) History of traumatic brain injury; 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: [Personal history of traumatic brain injury] 04-11-2018 Episodic Mood disorders (1 source) Major depressive disorder, single episode, unspecified; 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: [ANDREWS DEPRESS D/O SINGLE EPIS UNS] Onset: 08-01-2021 Chronic Nutritional deficiencies (4 sources) Deficiency of other specified B group vitamins; 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: [DEFICIENCY SPEC B GROUP VITAMINS] Onset: 11-27-2021 Episodic Occlusion or stenosis of precerebral arteries (20 sources) Bilateral stenosis of carotid arteries; 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: [Occlusion and stenosis of bilateral carotid arteries] Onset: 11-10-2020 Resolved: 09-27-2021 Chronic Osteoarthritis (13 sources) Arthritis of hand; 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: [Primary osteoarthritis, right hand] Onset: 07-12-2021 Resolved: 09-20-2021 Chronic Other and ill-defined cerebrovascular disease (14 sources) Cerebrovascular disease; 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: [Cerebrovascular disease, unspecified] Chronic Other and ill-defined cerebrovascular disease (1 source) Cerebrovascular disease, unspecified; 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: [CEREBROVASCULAR DISEASE UNSPECIFIED] Onset: 11-28-2021 Chronic Other circulatory disease (5 sources) History of cardiovascular surgery; 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: [Presence of other cardiac implants and grafts] 04-11-2018 Chronic Other connective tissue disease (1 source) Presence of right artificial knee joint; 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: [PRESENCE RT ARTIFICIAL KNEE JOINT] Onset: 11-28-2021 Chronic Other connective tissue disease (1 source) Presence of unspecified artificial knee joint; 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: [PRESENCE UNS ARTIFICIAL KNEE JOINT] Onset: 08-01-2021 Chronic Other connective tissue disease (4 sources) Other specified soft tissue disorders; 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: [OTHER SPEC SOFT TISSUE DISORDERS] Onset: 01-31-2022 Episodic Other gastrointestinal disorders (5 sources) Dysphagia; 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: [Dysphagia, unspecified] 04-11-2018 Episodic Other hereditary and degenerative nervous system conditions (5 sources) Dystonia; 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: [Dystonia, unspecified] 04-11-2018 Chronic Other lower respiratory disease (2 sources) Other forms of dyspnea; 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: [Other forms of dyspnea] Onset: 02-13-2023 Episodic Other nervous system disorders (1 source) Difficulty in walking, not elsewhere classified; 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: [DIFFICULTY IN WALKING NEC] Onset: 11-28-2021 Chronic Other nervous system disorders (1 source) Aphasia; 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: [APHASIA] Onset: 05-10-2021 Chronic Other nervous system disorders (1 source) Other abnormalities of gait and mobility; 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: [Other abnormalities of gait and mobility] Onset: 01-21-2023 Episodic Other screening for suspected conditions (not mental disorders or infectious disease) (15 sources) Patient encounter status; 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: [Encounter for screening for malignant neoplasm of colon] Onset: 05-10-2021 12-16-2018 Episodic Other skin disorders (1 source) Localized swelling, mass and lump, left lower limb; 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: [LOC SWELL MASS LUMP LT LOWER LIMB] Onset: 01-31-2022 Episodic Ovarian cyst (7 sources) Unspecified ovarian cyst, unspecified side; 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: [Unspecified ovarian cyst, right side] Onset: 10-25-2021 Episodic Peripheral and visceral atherosclerosis (1 source) Peripheral vascular disease, unspecified; 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: [PERIPHERAL VASCULAR DISEASE UNS] Onset: 02-22-2022 Chronic Residual codes; unclassified (5 sources) Confusional state; 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: [Disorientation, unspecified] 10-26-2020 Episodic Residual codes; unclassified (4 sources) Altered mental status; 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: [Altered mental status, unspecified] 11-21-2021 Episodic Residual codes; unclassified (1 source) Pain, unspecified; 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: [Pain, unspecified] Onset: 02-16-2023 Episodic Unclassified (3 sources) COUGH, UNSPECIFIED; 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: [COUGH, UNSPECIFIED] Onset: 01-08-2022 Unclassified (1 source) CHRN KIDNEY DISEASE STG 3 UNSP; 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: [CHRN KIDNEY DISEASE STG 3 UNSP] Onset: 11-28-2021 Unclassified (1 source) Occlusion and stenosis of bilateral carotid arteries; 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: [Occlusion and stenosis of bilateral carotid arteries] Onset: 04-04-2022 Varicose veins of lower extremity (18 sources) Varicose veins of lower extremity; 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: [Varicose veins of bilateral lower extremities with other complications] Onset: 02-20-2022 Episodic Viral infection (2 sources) COVID-19; 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: [COVID-19] Onset: 09-07-2021 Resolved: 09-22-2021 Past or Other Problems Problem Classification Problem Date Documented Da te Episodic/Chronic Calculus of urinary tract (1 source) Personal history of urinary calculi; 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: [PERSONAL HISTORY OF URINARY CALCULI] Onset: 2 Episodic Deficiency and other anemia (4 sources) Anemia, unspecified; 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: [ANEMIA UNSPECIFIED] Onset: 2 Episodic E Codes: Fall (2 sources) Fall on same level, unspecified, initial encounter; 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: [Fall (on) (from) unspecified stairs and steps, initial encounter] Onset: 2 Episodic Fracture of upper limb (6 sources) Other fractures of lower end of left radius, subsequent encounter for closed fracture with routine healing; 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: [Unspecified fracture of the lower end of left radius, initial encounter for closed fracture] Onset: 2 Resolved: 2 Episodic Fracture of upper limb (3 sources) Nondisplaced fracture of proximal phalanx of right middle finger, initial encounter for closed fracture Onset: 2 Resolved: 2 Episodic Gastrointestinal hemorrhage (3 sources) Gastrointestinal hemorrhage, unspecified; 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: [Melena] Onset: 2 Episodic Malaise and fatigue (5 sources) Weakness; 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: [WEAKNESS] Onset: 2 Episodic Nausea and vomiting (1 source) Nausea with vomiting, unspecified Onset: 2 Resolved: 2 Episodic Other aftercare (1 source) care home (current) use of aspirin; 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: [RESIDENTIAL CURRENT USE OF ASPIRIN] Onset: 2 Episodic Other aftercare (1 source) Other care home (current) drug therapy; 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: [OTH RESIDENTIAL CURRENT DRUG THERAPY] Onset: 2 Episodic Other aftercare (1 source) Encounter for follow-up examination after completed treatment for conditions other than malignant neoplasm; 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: [ENC F/U EX AFTR CMPL TX NOT MAL SU] Onset: 2 Episodic Other aftercare (1 source) 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; 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: [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/ANTIPLATL ETS] Onset: 2 Episodic Other circulatory disease (1 source) Personal history of transient ischemic attack (TIA), and cerebral 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; 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: [PERS HX TIA AND CI NO RESID DEFICIT] Onset: 2 Episodic Other connective tissue disease (3 sources) Pain in right hand Onset: 2 Resolved: 2 Episodic Other gastrointestinal disorders (1 source) Bariatric surgery status; 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: [BARIATRIC SURGERY STATUS] Onset: 2 Episodic Other injuries and conditions due to external causes (1 source) History of falling; 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: [HISTORY OF FALLING] Onset: 2 Episodic Other lower respiratory disease (1 source) Other nonspecific abnormal finding of lung field; 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: [OTH NONSPECIFIC ABN FIND LNG FIELD] Onset: 2 Episodic Other non-traumatic joint disorders (3 sources) Pain in left wrist; 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: [PAIN IN LEFT WRIST] Onset: 2 Episodic Residual codes; unclassified (5 sources) Other specified postprocedural states Onset: 2 Resolved: 2 Episodic Residual codes; unclassified (7 sources) Altered mental status, unspecified; 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: [Altered mental status] Onset: 2 11-21-2021 Episodic Residual codes; unclassified (1 source) Acquired absence of other specified parts of digestive tract; 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: [ACQ ABSENCE OTH PART DIGESTV TRACT] Onset: 2 Episodic Residual codes; unclassified (1 source) Acquired absence of both cervix and uterus; 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: [ACQUIRED ABSENCE BOTH CERVIX AND UTERUS] Onset: 2 Episodic Residual codes; unclassified (1 source) Sleep disorder, unspecified; 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: [SLEEP DISORDER UNSPECIFIED] Onset: 2 Episodic Residual codes; unclassified (3 sources) Disorientation, unspecified; 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: [DISORIENTATION UNSPECIFIED] Onset: 2 Episodic Residual codes; unclassified (2 sources) Localized edema; 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: [Localized edema] Onset: 3 Episodic Screening and history of mental health and substance abuse codes (1 source) Personal history of nicotine dependence; 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: [PERSONAL HISTORY OF NICOTINE DEPEND] Onset: 2 Episodic Spondylosis; intervertebral disc disorders; other back problems (1 source) Cervicalgia; 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: [CERVICALGIA] Onset: 2 Episodic Unclassified (1 source) COUGH, UNSPECIFIED; 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: [COUGH, UNSPECIFIED] Onset: 2 Urinary tract infections (1 source) Urinary tract infection, site not specified; 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: [UTI SITE NOT SPECIFIED] Onset: 2 Episodic Results Test Name Value Interpretation Reference Range Facility 37on 02-13-2023 37 Decrease amount of fluids your drinking to about 1.5 liters/day Take lasix 40 mg daily and increase potassium to 20 meq daily Have labs drawn in 1 week Call for appointment with neuro Normal [facility] Office Visiton 02-13-2023 Follow-up visit [id number] Ozzie Gifford 1950 F Date Provider Department Center 02/13/2023 Niki-MEGHANN FONSECA Family History Problem Relation Age of Onset Hypertension Mother Hypertension Father Heart attack Brother Family Status - Relation Status Age at Mother Father Brother Level of Service:77860 MI OFFICE/OUTPATIENT ESTABLISHED MOD MDM 30 MIN Normal [facility] Urinalysis - AUTOMATEDon Appearance (U) cloudy [employer] Other Bilirubin Ql (U) Negative reMail ast [employer] Other Color (U) yellow [employer] Other Glucose Ql (U) Negative [employer] Other Hemoglobin Ql (U) Negative Reduce Data oast [employer] Other Ketones Ql (U) Negative [employer] Other Leukocyte esterase Test strip Ql (U) Negative [employer] Other Nitrite Ql (U) Negative [employer] Other pH (U) 6.0 [pH] [employer] Other Protein Ql (U) Negative [employer] Other Specific gravity (U) [Rel density] 1.030 [employer] Other Urobilinogen (U) [Mass/Vol] 1.0 mg/dL [employer] Other Urinalysis - AUTOMATED No rt [facility] Other Office Visiton 08-28-2022 Follow-up visit [id number] Ozzie Gifford 1950 F Date Provider Department Center 08/28/2022 NICOLAS MARCANO VANIA [facility] Family History Problem Relation Age of Onset Hypertension Mother Hypertension Father Heart attack Brother Family Status - Relation Status Age at Mother Father Brother Level of Service:58307 MI OFFICE/OUTPATIENT ESTABLISHED MOD MDM 30-39 MIN Reason for Visit and Comments: Follow-up [332697] - 6 month follow up Normal [facility] US carotid doppler BIon 02- US carotid doppler [facility] Main [place] [address] [place] [address] Ultrasound Report Signed Patient: Ozzie Gifford MR#: [id number] : 1950 Acct:[id number] Age/Sex: 71 / F ADM Date: 04/04/22 Loc: [facility] Room: Type: [facility] Attending Dr: Denver Juarez MD Ordering Provider: Denver Juarez MD Date of Service: 04/04/22 US/US carotid doppler BI: I65.23 Copies to: Denver Juarez MD CAROTID DUPLEX INDICATION: Carotid surveillance after prior right carotid endarterectomy PROCEDURE: Color-flow duplex scanning is used to interrogate the extracranial carotid arterial system, as well as both vertebral arteries. Both carotid bifurcations show some smooth homogeneous plaque formation. The proximal right internal carotid artery shows a highest peak systolic velocity of 145 cm/s with an end-diastolic velocity of 29 cm/s . The mid internal carotid artery measures 118 cm/s peak systolic with an end diastolic velocity of 22.7 cm/s . The distal segment measures 74.7 cm/s peak systolic with an end diastolic velocity of 16.5 cm/s . The velocities of the right common carotid artery are 80.1 cm/s peak systolic and 9.94 cm/s end-diastolic and 98.8 cm/s peak systolic and 17.2 cm/s end diastolic distally. The peak systolic velocity ratio of the internal to the common carotid artery is 1.47 . The external carotid artery measures 139 cm/s peak systolic. The right vertebral artery is patent at 35.2 cm/s peak systolic with antegrade flow. The proximal left internal carotid artery shows a highest peak systolic velocity of 83.1 cm/s with an end-diastolic velocity of 10.6 cm/s . The mid internal carotid artery measures 96 cm/s peak systolic with an end diastolic velocity of 16.8 cm/s . The distal segment measures 53.6 cm/s peak systolic with an end diastolic velocity of 10.4 cm/s . The velocities of the left common carotid artery are 45.9 cm/s peak systolic and 7.32 cm/s end-diastolic and 41.7 cm/s peak systolic and 7.44 cm/s end diastolic distally. The peak systolic velocity ratio of the internal to the common carotid artery is 2.3 . The external carotid artery measures 12 cm/s peak systolic. The left vertebral artery is patent at 92.9 cm/s peak systolic with antegrade flow. US/US carotid doppler BI IMPRESSION: MILD PLAQUE FORMATION IS NOTED BILATERALLY, WITH LESS THAN 50% STENOSIS OF BOTH EXTRACRANIAL INTERNAL CAROTID ARTERY. BOTH VERTEBRAL ARTERIES ARE PATENT WITH ANTEGRADE FLOW. Impression dictated by: Denver Juarez MD04/04/2022 3:28 PM [facility] Tech: Selin Oglesby Transcribed By: [facility] 04/04/22 1528 Dictated By: Denver Juarez MD 04/04/22 1528 Signed By: 04/04/22 1528 [facility] 37on 03-05-2022 37 Start Isosorbide/Imdur 30 mg daily in the morning- for chest pain Call office for any concerns, worsening chest pain, worsening headache, lightheadedness/dizzi ness. Normal [facility] Office Visiton 03-05-2022 Follow-up visit [id number] Ozzie Gifford 1950 F Date Provider Department Center 03/05/2022 Niki-MEGHANN FONSECA BH CARD [facility] Family History Problem Relation Age of Onset Hypertension Mother Hypertension Father Heart attack Brother Family Status - Relation Status Age at Mother Father Brother Level of Service:54323 MI OFFICE/OUTPATIENT ESTABLISHED MOD MDM 30-39 MIN Normal [facility] Urine Cultureon 03-02-2022 Bacteria identified Cx Nom (U) Reason for Exam Dysuria Urine ORGANISM: Escherichia coli (O:ESCCOL) [place] Count 20,000 Aerobic QUINTIN Charge (NMIC56) ---- SUSCEPTIBILITY --- ORGANISM: O:ESCCOL ANTIBIOTIC INTERPRETATION QUINTIN Amikacin S <16 Amoxacillin/K Clavulanate S <8 Ampicillin S <8 Ampicillin/Sulbactam S <4 Aztreonam S <4 Cefazolin S <2 Cefepime S <2 Ceftazidime S <1 Ceftazidime/Avibactam S <4 Ceftolozane/Tazobacta m S <2 Ceftriaxone S <1 Cefuroxime S <4 Ciprofloxacin S <0.25 Ertapenem S <0.5 Gentamicin S <2 Levofloxacin S <0.5 Meropenem S <1 Meropenem/Vaborbactam S <2 Nitrofurantoin S <32 Piperacillin/Tazobact am S <8 Tetracycline S <4 Tigecycline S <2 Tobramycin S <2 Trimethoprim/Sulfamet hoxazole S <0.5 S = SUSCEPTIBLE I = INTERMEDIATE R = RESISTANT BLANK = DATA NOT AVAILABLE, OR DRUG NOT ADVISABLE OR TESTED R* = RESISTANCE DUE TO EXTENDED SPECTRUM BETA-LACTAMASES ESBL = EXTENDED SPECTRUM BETA-LACTAMASE TFG = THYMIDINE-DEPENDENT STRAIN ANA = BETA-LACTAMASE POSITIVE IB = INDUCIBLE BETA-LACTAMASE. APPEARS IN PLACE OF 'S' WITH SPECIES KNOWN TO POSSESS INDUCIBLE BETA-LACTAMASES. POTENTIALLY THEY MAY BECOME RESISTANT TO ALL B-LACTAM DRUGS. PERFORMED BY: [place] [id number] PATHOLOGIST BIOLOGICAL SCIENCE TECHNICIAN FISH YOCASTA BYRNE M.D. [facility] Comment on above: Performed By: #### C UU #### [address] ECHOCARDIO M/2D COMPLETEon 0 02-21-2022 ECHOCARDIO M/2D COMPLETE Patient: OZZIE GIFFORD Exam Date: 02/21/2022 : 1950 Gender:F Ordering : MEGHANN FONSECA Admission #: [id number] Family : SHAIKH Korina ROMOAJAY . Order #: [id number] CLICK HERE TO VIEW EXAM ECHOCARDIOGRAM REPORT PROCEDURE: CARDIO PULMONARY ECHOCARDIO M/2D COMP INDICATIONS: CAD, HTN, Mitral Regurgitation, Evaluate MR; Edema COMPARISON: None. DESCRIPTION: COMPLETE ECHOCARDIOGRAM Real-time transthoracic echocardiography with 2D, M-mode, spectral and color flow Doppler performed. QUALITY: Technical quality was good. 64 164# 152/90 HR 61 LEFT VENTRICLE: Normal chamber size. Proximal septal hypertrophy (sigmoid septum). LV EF: Global left ventricular systolic function is normal. Visual estimation of left ventricular ejection fraction is 65%. No regional wall motion abnormalities. DIASTOLIC: Diastolic function is indeterminate. ATRIAL SEPTUM: Inadequately seen. LEFT ATRIUM: Mild dilatation. RIGHT ATRIUM: Normal chamber size. RIGHT VENTRICLE:Normal chamber size. Normal right ventricular systolic function. TRICUSPID VALVE:Normal mobility and thickness. No stenosis with mild regurgitation. No evidence of pulmonary hypertension. RVSP 34 mmHg MITRAL VALVE: Mildly thickened with normal mobility. No evidence of mitral valve stenosis. Mild mitral annular calcification. Mild mitral regurgitation. AORTIC VALVE: Normal trileaflet appearance. Mildly calcified aortic valve. No evidence of aortic valve stenosis. Trivial aortic regurgitation. AORTIC ROOT: Normal diameter and appearance. Normal aortic arch. PULMONIC VALVE: Normal thickness and mobility. No stenosis. Trivial regurgitation. PERICARDIUM: No evidence of pericardial effusion. IVC: Collapses with inspirations. IVC is normal in size. CONCLUSION: Global left ventricular systolic function is normal; visually estimated ejection fraction is 60 to 65%. No regional wall motion abnormalities. Diastolic function is indeterminate. The left atrium is dilated. Right ventricle is normal in size and systolic function. Mild tricuspid regurgitation. Mild mitral regurgitation. Adult Echocardiography Procedure Report Left Ventricle LVEDD (3.7 - 5.6 cm): 3.74 cm LVESD (2.2 - 4.0 cm): 2.39 cm LVPW thickness (0.5 - 1.0 cm): 0.91 cm LVOT Max Gradient: 3.06 mm[Hg] Peak Velocity (LVOT): 0.88 m/s LVOT Diameter 1.96 cm Left Ventricular Ejection Fraction: 66.62 %, 66.62 % Left Atrium LA Volume Index (2D A2C): 67.81 ml, 61.58 ml Left Atrium Systolic Dimension: 3.80 cm Mitral Valve MV E to A Ratio: 1.28 Mitral Valve A-Wave Peak Velocity: 0.78 m/s Mitral Valve E-Wave Peak Velocity: 1.00 m/s Right Ventricle RV Internal Diastolic Dimension: 3.34 cm Aorta AO Root Diam: 3.05 cm Aortic Valve AoV Area (Peak Shen): 1.54 cm2, 1.54 cm2 Peak Velocity(Antegrade Flow): 1.71 m/s Peak Gradient(Antegrade Flow): 11.76 mm[Hg] Tricuspid Valve Peak Velocity (Regurgitant Flow): 2.19 m/s, 2.41 m/s, 2.79 m/s Peak Velocity: 0.52 m/s Pulmonic Valve Peak Velocity: 0.74 m/s Peak Gradient: 2.21 mm[Hg] Right Atrium Dictated by: Jacklyn Doty M.D. on 02/22/2022 at 12:57 Approved by: Jacklyn Doty M.D. on 02/22/2022 at 13:00 Normal [facility] VC COMP CONSULTATIONon 02-20 VC COMP CONSULTATION Patient: OZZIE GIFFORD Exam Date: 02/20/2022 : 1950 Gender:F Ordering : SHAIKH Korina DAY . Admission #: [id number] Family : Order #: [id number] CLICK HERE TO VIEW EXAM RADIOLOGY REPORT PROCEDURE: VC VEIN CENTER CONSULTATION VEIN CENTER - OFFICE VISIT INITIAL COMPARISON: None. PROGRESS NOTES: 71-year-old female who presents with a 5 year history of lower extremity pain and swelling. The patient's left leg is worse than the right leg. The patient rates the pain as a 10 a scale of 1-10 describes the pain as burning, severe with any type of palpation or use of tight-fitting clothing. The patient's symptoms are in the entire leg most significant below the knee. The patient's swelling progresses over the course of the day with minimal to no resolution at night. Patient's symptoms are only minimally relieved by rest, leg elevation over an over the counter oral analgesics. The patient has worn several types of knee high compression stockings which she has low tolerance due to the pain. The patient denies any signs and symptoms to suggest arterial ischemia. 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 The patient describes a family history significant for a daughter who of lung cancer in 2012 cancer in multiple relatives. , 1 of her children is adopted cysts. The patient has not smoked for 55 years. The patient does not alcohol. No illicit or prescription drug abuse. No history of deep venous thrombus or pulmonary embolus. See separate history and physical for medication list. No prior treatment for varicose or spider veins. Patient has used compression stockings for several years. The patient was referred by her primary care physician, Dr. Posey. Nursing notes were reviewed After history and physical exam I discussed at length the pathophysiology of lower extremity swelling and pain. The subcutaneous edema is likely multifactorial and related to her hypertension and significant congestive heart disease. We discussed control of edema using 30-40 mm knee high compression stockings, exercise, and leg elevation. We discussed a referral to the lymphedema clinic Ultrasound venous reflux study performed the same was discussed at length with the patient. The report demonstrates mild bilateral great saphenous vein venous insufficiency with minimal dilatation. Mild scattered varicose veins. PHYSICAL EXAM: The right leg demonstrates mild to moderate scattered varicose, reticular and spider veins most significant along the ankle and foot. Mild subcutaneous edema below the knee. The patient had moderate pain with even minimal palpation. No areas of active ulceration The left leg demonstrates mild to moderate scattered varicose, reticular and spider veins, most significant along the ankle and foot. Moderate subcutaneous edema below the knee with some minimal erythema. The patient had severe pain with minimal palpation . no areas of active ulceration. Both thighs, legs and feet were symmetrically warm to the touch. Good posterior tibial and dorsalis pedis pulses were present bilaterally. IMPRESSION: 1. Mild bilateral great saphenous vein venous insufficiency 2. Mild bilateral lower extremity varicose veins 3. Mild right and moderate left lower extremity subcutaneous edema / lymphedema likely multifactorial 4. No definite flow significant arterial disease 5. CEAP: C3, Ep, As, Pr PLAN: 1. Follow-up with cardiology for congestive heart failure 2. Follow-up with lymphedema Clinic 3. Follow-up with primary care physician for possible treatment of peripheral neuropathy with gabapentin trial 4. Long-term use of 30-40 mm bilateral knee compression stockings 5. No follow-up required Nurse notes, history and physical were reviewed and confirmed, see attached forms. The nurse was present throughout the physical exam and consultation Dictated by: Natacha Walsh MD on 02/20/2022 at 11:24 Approved by: Natacha Walsh MD on 02/20/2022 at 11:35 Normal [facility] VC VENOUS REFLUX IAN LMTon 0 02-20-2022 VC VENOUS REFLUX IAN LMT Patient: OZZIE GIFFORDDeonte Exam Date: 02/20/2022 : 1950 Gender:F Ordering : SHAIKH Korina Clemons Admission #: [id number] Family : DR NATACHA WALSH M.D. Order #: [id number] CLICK HERE TO VIEW EXAM RADIOLOGY REPORT PROCEDURE: VEIN CENTER ULTRASOUND VENOUS REFLUX BILATERAL LIMTED COMPARISON: None. INDICATIONS: Pain co-occurrent and due to varicose veins of bilateral legs i83.813 TECHNIQUE: Duplex imaging of the lower extremity to assess the deep and superficial venous system for the presence of deep or superficial venous incompetence and to document the location and severity of disease. The study includes evaluation of the great saphenous vein (GSV), anterior accessory saphenous vein (AASV) and small saphenous vein (SSV). Patient scanned in reverse Trendelenburg and standing. FINDINGS: RIGHT LOWER EXTREMITY: Saphenofemoral Junction Reflux: Yes 7.3mm 0.7 sec GSV: Diam (mm) Reflux/ Time (sec) Proximal Thigh 6.3 Yes 0.9 Mid Thigh 5.5 No Distal Thigh 2.9 No Prox Calf 3.1 Yes 0.4 Mid Calf 2.7 No Saphenopopliteal Junction Reflux: 3.0mm No SSV: Proximal Calf 2.4 No Mid Calf 3.0 No AASV: Not present Thrombi: No acute or chronic thrombus visualized Compressibility: Normal Flow: Normal Preforator: Dist/med calf 3.2mm with 0s reflux. Dist/med calf 2.2mm with 0s reflux. Mid/med calf 2.3mm with 0s reflux. Tech Note: Incompetent SFJ and GSV. Patent varicose vein dist/med thigh 2.9mm with 0s reflux. Patent varicose vein prox/med calf 2.0mm with 0s reflux. Patent varicose vein ant/dist calf 2.0mm with 0s reflux. Patent varicose vein mid/med thigh 3.2mm with 0.3s reflux. LEFT LOWER EXTREMITY: Saphenofemoral Junction Reflux: Yes 7.1 mm 0.8 sec GSV: Diam (mm) Reflux/Time (sec) Proximal Thigh 5.1 Yes 0.6 Mid Thigh 3.8 Yes 0.5 Distal Thigh 4.7 No Prox Calf 2.5 Yes 0.5 Mid Calf 2.5 No Saphenopopliteal Junction Relux: 3.2 mm No SSV: Proximal Calf 2.4 No Mid Calf 2.3 No AASV: Not present Thrombi: No acute or chronic thrombus visualized Compressibility: Normal Flow: Normal Account Manager Sales Representative: Dist/med calf 2.5mm with 0s reflux. Mid/med calf 3.8mm with 0s reflux. Tech Note: Incompetent SFJ and GSV. Patent varicose vein prox/med calf 2.9mm with 0s reflux. Patent varicose vein dist/med thigh 2.5mm with 0s reflux. CONCLUSION: 1. Mild bilateral great saphenous vein venous insufficiency 2. Few scattered dilated bilateral veins without significant reflux demonstrated Dictated by: Natacha Walsh MD on 02/20/2022 at 10:28 Approved by: Natacha Walsh MD on 02/20/2022 at 10:30 Normal [facility] US JANETTE DOP LEG LTon 02-01-20 22 US JANETTE DOP LEG LT INDICATION: Disorder of soft tissue L leg swelling AND pain x4 weeks EXAMINATION: Ultrasound was performed of the left lower extremity veins. TECHNIQUE: [place] scale, pulse wave, and color flow Doppler imaging was performed of the lower extremity venous system. COMPARISON: 01/22/2022 __ FINDINGS: There is normal compression, augmentation, and signal throughout the visualized deep lower extremity veins. Visualized lower extremity calf veins are patent. No mass or fluid collection. IMPRESSION: 1. Negative left lower extremity ultrasound examination for DVT. Electronically authenticated by: INDRA LOZADA Date: 2022-01-31 18:39 Normal [facility] BNPon 01-22-2022 Natriuretic peptide B (Bld) [Mass/Vol] 552.0 pg/mL Normal <=900.0 [facility] Comment on above: Performed By: #### E RUR #### [facility] [address] [address] [address] Grzegorz Wang CBC AUTO DIFFon 01-22-2022 BASO # 0.1 103/ul Normal 0.0-0.1 [facility] Comment on above: Performed By: #### C BC #### [facility] [address] [address] [address] Grzegorz Wang Basophils/100 WBC (Bld) 0.9 % Normal 0.2-2.0 [facility] Comment on above: Performed By: #### C BC #### [facility] [address] [place] [address] Dr. Grzegorz Wang EO # 0.3 103/ul Normal 0.0-0.7 [facility] Comment on above: Performed By: #### C BC #### [facility] [address] [place] [address] Dr. Grzegorz Wang Eosinophils/100 WBC (Bld) 5.5 % Normal 0.9-7.0 [facility] Comment on above: Performed By: #### C BC #### [facility] [address] [place] [address] Dr. Grzegorz Wang Erythrocyte distribution width (RBC) [Ratio] 13.7 % Normal 11.0-15.0 [facility] Comment on above: Performed By: #### C BC #### [facility] [address] [place] [address] Dr. Grzegorz Wang Hematocrit (Bld) [Volume fraction] 41.1 % Normal 36.0-48.0 [facility] Comment on above: Performed By: #### C BC #### [facility] [address] [place] [address] Dr. Grzegorz Wang Hemoglobin (Bld) [Mass/Vol] 13.4 g/dL Normal 12.0-16.0 [facility] Comment on above: Performed By: #### C BC #### [facility] [address] [place] [address] Dr. Grzegorz Wang IG # 0.01 10e3/ul Normal 0.00-0.03 [facility] Comment on above: Performed By: #### C BC #### [facility] [address] [place] [address] Dr. Grzegorz Wang IG % 0.2 % Normal 0.0-0.5 [facility] Comment on above: Performed By: #### C BC #### [facility] [address] [place] [address] Dr. Grzegorz Wang LYMPH # 1.8 103/ul Normal 1.2-3.8 [facility] Comment on above: Performed By: #### C BC #### [facility] [address] [place] [address] Dr. Grzegorz Wang Lymphocytes/100 WBC (Bld) 29.9 % Normal 20.5-60.0 [facility] Comment on above: Performed By: #### C BC #### [facility] [address] [place] [address] Dr. Grzegorz Wang MANUAL DIFF REQ NO Normal [facility] Comment on above: Performed By: #### C BC #### [facility] [address] [place] [address] Dr. Grzegorz Wang MCH (RBC) [Entitic mass] 28.2 pg Normal 26.7-34.0 [facility] Comment on above: Performed By: #### C BC #### [facility] [address] [place] [address] Dr. Grzegorz Wang MCHC (RBC) [Mass/Vol] 32.6 g/dL Normal 29.9-35.2 [facility] Comment on above: Performed By: #### C BC #### [facility] [address] [place] [address] Dr. Grzegorz Wang MCV (RBC) [Entitic vol] 86.5 fL Normal 81.0-99.0 [facility] Comment on above: Performed By: #### C BC #### [facility] [address] [place] [address] Dr. Grzegorz Wang MONO # 0.7 103/ul Normal 0.3-0.8 [facility] Comment on above: Performed By: #### C BC #### [facility] [address] [place] [address] Dr. Grzegorz Wang Monocytes/100 WBC (Bld) 11.1 % Normal 1.7-12.0 [facility] Comment on above: Performed By: #### C BC #### [facility] [address] [place] [address] Dr. Grzegorz Wang NEUT # 3.1 103/ul Normal 1.4-6.5 [facility] [facility] Comment on above: Performed By: #### C BC #### [facility] [address] [place] [address] Dr. Grzegorz Wang Neutrophils/100 WBC (Bld) 52.4 % Normal 43.0-75.0 [facility] Comment on above: Performed By: #### C BC #### [facility] [address] [place] [address] Dr. Grzegorz Wang Platelet mean volume (Bld) [Entitic vol] 9.6 fL Normal 9.5-13.5 [facility] Comment on above: Performed By: #### C BC #### [facility] [address] [place] [address] Dr. Grzegorz Wang PLT 162 103/ul Normal 150-450 [facility] Comment on above: Performed By: #### C BC #### [facility] [address] [place] [address] Dr. Grzegorz Wang RBC 4.75 106/ul Normal 4.20-5.40 [facility] Comment on above: Performed By: #### C BC #### [facility] [address] [place] [address] Dr. Grzegorz Wang WBC 5.9 103/ul Normal 4.0-11.0 [facility] Comment on above: Performed By: #### C BC #### [facility] [address] [place] [address] Dr. Grzegorz Wang PROF 14(COMP METB)on 022 Albumin [Mass/Vol] 3.4 g/dL Normal 3.4-5.0 [facility] Comment on above: Performed By: #### E RUR #### [facility] [address] [place] [address] Dr. Grzegorz Wang Albumin/Globulin [Mass ratio] 1.0 {ratio} Normal [facility] Comment on above: Performed By: #### E RUR #### [facility] [address] [place] [address] Dr. Grzegorz Wang ALP [Catalytic activity/Vol] 102 U/L Normal 46-116 [facility] Comment on above: Performed By: #### E RUR #### [facility] [address] [place] [address] Dr. Grzegorz Wang ALT [Catalytic activity/Vol] 16 U/L Normal 14-59 [facility] Comment on above: Performed By: #### E RUR #### [facility] [address] [place] [address] Dr. Grzegorz Wang Anion gap [Moles/Vol] 10.6 mmol/L Normal [facility] Comment on above: Performed By: #### E RUR #### [facility] [address] [place] [address] Dr. Grzegorz Wang AST [Catalytic activity/Vol] 18 U/L Normal 15-37 [facility] Comment on above: Performed By: #### E RUR #### [facility] [address] [place] [address] Dr. Grzegorz Wang Bilirubin [Mass/Vol] 0.4 mg/dL Normal 0.2-1.0 [facility] Comment on above: Performed By: #### E RUR #### [facility] [address] [place] [address] Dr. Grzegorz Wang Calcium [Mass/Vol] 9.0 mg/dL Normal 8.5-10.1 [facility] Comment on above: Performed By: #### E RUR #### [facility] [address] [place] [address] Dr. Grzegorz Wang Chloride [Moles/Vol] 103 mmol/L Normal 98-107 [facility] Comment on above: Performed By: #### E RUR #### [facility] [address] [place] [address] Dr. Grzegorz Wang CO2 [Moles/Vol] 31.4 mmol/L Normal 21.0-32.0 [facility] Comment on above: Performed By: #### E RUR #### [facility] [address] [place] [address] Dr. Grzegorz Wang Creatinine [Mass/Vol] 0.80 mg/dL Normal 0.55-1.02 [facility] Comment on above: Performed By: #### E RUR #### [facility] [address] [place] [address] Dr. Grzegorz Wang EGFR-AF HONG KONGER >60 Normal >=60 [facility] Comment on above: Performed By: #### E RUR #### [facility] [address] [address] [address] Grzegorz Wang EGFR-NON AF HONG KONGER >60 Normal >=60 [facility] Comment on above: Performed By: #### E RUR #### [facility] [address] [address] [address] Grzegorz Wang Globulin (S) [Mass/Vol] 3.4 g/dL Normal [facility] Comment on above: Performed By: #### E RUR #### [facility] [address] [address] [address] Grzegorz Wang Glucose [Mass/Vol] 78 mg/dL Normal 74-106 [facility] Comment on above: Performed By: #### E RUR #### [facility] [address] [address] [address] Grzegorz Wang Potassium [Moles/Vol] 3.0 mmol/L Critically low 3.5-5.1 [facility] Comment on above: Performed By: #### E RUR #### [facility] [address] [address] [address] Grzegorz Wang Protein [Mass/Vol] 6.8 g/dL Normal 6.4-8.2 [facility] Comment on above: Performed By: #### E RUR #### [facility] [address] [address] [address] Grzegorz Wang Sodium [Moles/Vol] 142 mmol/L Normal 136-145 [facility] Comment on above: Performed By: #### E RUR #### [facility] [address] [address] [address] Grzegorz Wang Urea nitrogen [Mass/Vol] 14.0 mg/dL Normal 7.0-18.0 [facility] Comment on above: Performed By: #### E RUR #### [facility] [address] [address] [address] Grzegorz Wang Urea nitrogen/Creatinine [Mass ratio] 17.5 mg/mg Normal [facility] Comment on above: Performed By: #### E RUR #### [facility] [address] [address] [address] Grzegorz Wang US JANETTE DOP LEG LTon 01-23-20 US JANETTE DOP LEG LT EXAM: US JANETTE DOP LEG LT HISTORY: Disorder of soft tissue with left leg swelling for 2 weeks. COMPARISON: None. TECHNIQUE: Multiple sonographic images of the deep veins of the left lower extremity were obtained, supplemented with Doppler. FINDINGS: The deep veins of the left lower extremity are fairly well visualized from the groin to the mid calf. No filling defect is identified to indicate a thrombus. There is normal compression augmentation to flow throughout. IMPRESSION: There is no direct or indirect evidence of deep vein thrombosis in the left lower extremity at this time. Electronically authenticated by: MIRI BALTAZAR Date: 2022-01-22 16:38 Normal [facility] LIPID PROFILEon 01-18-2022 CHOL-HDL RATIO NORM SEE BELOW Normal [facility] Comment on above: Result Comment: 3.3 - 4.4 LOW RISK 4.4 - 7.1 AVERAGE RISK 7.1 - 11.0 MODERATE RISK >11.0 HIGH RISK Performed By: #### A BRAYDEN LIPA #### [facility] [address] [address] [address] Grzegorz Wang Cholesterol [Mass/Vol] 125 mg/dL Normal <=200 [facility] Comment on above: Performed By: #### A BRAYDEN LIPA #### [facility] [address] [address] [address] Grzegorz Wang Cholesterol in HDL [Mass/Vol] 69 mg/dL Critically high 40-60 [facility] Comment on above: Performed By: #### A BRAYDEN LIPA #### [facility] [address] [address] [address] Grzegorz Wang Cholesterol in LDL [Mass/Vol] 40.0 mg/dL Normal [facility] Comment on above: Performed By: #### A MY, LIPA #### [facility] [address] [address] [address] Grzegorz Wang Cholesterol.total/Claudia sterol in HDL [Mass ratio] 1.8 {ratio} Normal [facility] Comment on above: Performed By: #### A MY, LIPA #### [facility] [address] [address] [address] Grzegorz Wang HDL NORMAL > or = 60 mg/dl - LO W CARDIOVASCULAR RISK <40 mg/dl - HIGH CARDIOVASCULAR RISK Normal [facility] Comment on above: Performed By: #### A MY, LIPA #### [facility] [address] [address] [address] Grzegorz Wang LDL CALC NORMAL SEE BELOW Normal [facility] Comment on above: Result Comment: <100 mg/dl OPTIMAL 100 - 129 mg/dl NEAR OR ABOVE OPTIMAL 130 - 159 mg/dl BORDERLINE HIGH 160 - 189 mg/dl HIGH >190 mg/dl VERY HIGH Performed By: #### A MY, LIPA #### [facility] [address] [address] [address] Grzegorz Wang Triglyceride [Mass/Vol] 80 mg/dL Normal <=150 T [facility] Comment on above: Performed By: #### A BRAYDEN, LIPA #### [facility] [address] [address] [address] Grzegorz Wang VLDL CALC 16.0 mg/dL Normal [facility] Comment on above: Performed By: #### A BRAYDEN, LIPA #### [facility] [address] [address] [address] Grzegorz Wang US PELVISon 01-18-2022 US PELVIS EXAMINATION: US PELVIS HISTORY: Cyst of ovary ; follow-up right ovarian cyst COMPARISON: Ultrasound pelvis 12/07/2021 TECHNIQUE: Transabdominal and transvaginal sonographic examination. FINDINGS: UTERUS: Hysterectomy. RIGHT OVARY: Contains a 2.5 cm anechoic cyst. Duplex Doppler demonstrates normal waveform and flow; resistive index 0.5. Ovary size: 3.5 x 3.0 x 2.8 cm LEFT OVARY: Surgically removed. CUL-DE-SAC: Unremarkable. No significant free fluid. BLADDER: Unremarkable. OTHER: None. IMPRESSION: 1. Stable 2.5 cm right ovarian cyst; not overtly suspicious, but not expected in a patient this age. Additional follow-up in 6 weeks is recommended to document stability versus regression. Electronically authenticated by: MITZI CHAU Date: 2022-01-18 10:31 Normal [facility] XR CHEST 2 Von 01-03-2022 XR CHEST 2 V EXAMINATION: XR CHES T 2 V HISTORY: Cough COMPARISON: XR chest 11/26/2021 FINDINGS: LUNGS: No significant pulmonary parenchymal abnormalities. VASCULATURE: No increased pulmonary vasculature. PLEURA: No pneumothorax, effusion, or pleural thickening. CARDIAC: No cardiomegaly or cardiac silhouette abnormality. MEDIASTINUM: No visible mass or adenopathy. BONES: No fracture or visible bone lesion. OTHER: Loop recorder within lower anterior left chest wall. IMPRESSION: 1. No acute cardiopulmonary process. Stable chest. Electronically authenticated by: MITZI CHAU Date: 2022-01-03 10:48 Normal [facility] US PELVISon 12-07-2021 US PELVIS EXAMINATION: US PELVIS HISTORY: Cyst of ovary COMPARISON: CT abdomen pelvis 11/26/2021 TECHNIQUE: Transabdominal sonographic examination. FINDINGS: UTERUS: Hysterectomy. RIGHT OVARY: Contains a 2.6 cm benign-appearing cyst. Duplex Doppler demonstrates normal waveform and flow; resistive index 0.3. Ovary size: 3.7 x 3.0 x 3.4 cm LEFT OVARY: Not seen. No suspicious adnexal findings. CUL-DE-SAC: Unremarkable. No significant free fluid. BLADDER: Unremarkable. OTHER: None. IMPRESSION: 1. Transabdominal ultrasound demonstrates what appears to be a 2.6 cm simple cyst within right ovary. Ultrasound follow-up in 6 weeks is recommended to document regression versus stability. 2. Left ovary was not identified. Hysterectomy. Electronically authenticated by: MITZI CHAU Date: 2021-12-07 17:20 Normal [facility] PROF CHEM 8 (BAS METB)on Anion gap [Moles/Vol] 13.0 mmol/L Normal [facility] Comment on above: Performed By: #### A PHIL OWEN #### [facility] [address] [place], [place] [address] Dr. Grzegorz Wang Calcium [Mass/Vol] 8.9 mg/dL Normal 8.5-10.1 [facility] Comment on above: Performed By: #### PHIL CHAKRABORTY #### [facility] [address] [address] [address] Grzegorz Wang Chloride [Moles/Vol] 105 mmol/L Normal 98-107 [facility] Comment on above: Performed By: #### A BRAYDEN LIPA #### [facility] [address] [address] [address] Grzegorz Wang CO2 [Moles/Vol] 29.0 mmol/L Normal 21.0-32.0 [facility] Comment on above: Performed By: #### A BRAYDEN LIPA #### [facility] [address] [place] [address] Dr. Grzegorz Wang Creatinine [Mass/Vol] 0.79 mg/dL Normal 0.55-1.02 [facility] Comment on above: Performed By: #### A BRAYDEN LIPA #### [facility] [address] [place] [address] Dr. Grzegorz Wang EGFR-AF HONG K[place]ER >60 Normal >=60 [facility] Comment on above: Performed By: #### A BRAYDEN LIPA #### [facility] [address] [place] [address] Dr. Grzegorz Wang EGFR-NON AF [place]ER >60 Normal >=60 [facility] Comment on above: Performed By: #### A BRAYDEN LIPA #### [facility] [address] [place] [address] Dr. Grzegorz Wang Glucose [Mass/Vol] 79 mg/dL Normal 74-106 [facility] Comment on above: Performed By: #### A BRAYDEN, LIPA #### [facility] [address] [place] [address] Dr. Grzegorz Wang Potassium [Moles/Vol] 3.0 mmol/L Critically low 3.5-5.1 [facility] Comment on above: Performed By: #### A BRAYDEN, LIPA #### [facility] [address] [place] [address] Dr. Grzegorz Wang Sodium [Moles/Vol] 144 mmol/L Normal 136-145 [facility] Comment on above: Performed By: #### A BRAYDEN LIPA #### [facility] [address] [address] [address] Grzegorz Wang Urea nitrogen [Mass/Vol] 12.0 mg/dL Normal 7.0-18.0 [facility] Comment on above: Performed By: #### A BRAYDEN LIPA #### [facility] [address] [place] [address] Dr. Grzegorz Wang Urea nitrogen/Creatinine [Mass ratio] 15.2 mg/mg Normal [facility] Comment on above: Performed By: #### A BRAYDEN LIPA #### [facility] [address] [place] [address] Dr. Grzegorz Wang VITAMIN B12on 11-27-2021 Cobalamin (Vitamin B12) [Mass/Vol] 5661.0 pg/mL Critically high 193.0-986.0 [facility] Comment on above: Performed By: #### E RUR #### [facility] [address] [place] [address] Dr. Grzegorz Wang BNPon 11-26-2021 Natriuretic peptide B (Bld) [Mass/Vol] 1245.0 pg/mL Critically high <=900.0 [facility] Comment on above: Performed By: #### A BRAYDEN LIPA #### [facility] [address] [place] [address] Dr. Grzegorz Wang Bacterial blood cultureOrder ed By: Ashleigh Rashid on 11-26-2021 Bacteria identified Cx Nom (Bld) NO GROWTH 5 DAYS [facility] CARDIAC BAMBI ADMITon 022 CK [Catalytic activity/Vol] 75 U/L Normal 26-192 [facility] Comment on above: Performed By: #### A BRAYDEN LIPA #### [facility] [address] [place] [address] Dr. Grzegorz Wang CK.MB [Mass/Vol] 1.58 ng/mL Normal <=3.60 [facility] Comment on above: Performed By: #### A BRAYDEN LIPA #### [facility] [address] [place] [address] Dr. Grzegorz Wang HSTROP 13.3 pg/mL Normal 4.0-51.3 [facility] Comment on above: Result Comment: CUT- OFF POINTS HAVE BEEN ESTABLISHED BASED ON THE FOURTH UNIVERSAL DEFINITIONS OF MYOCARDIAL INFARCTION. THE UPPER REFERENCE LIMIT (URL) OF TROPONIN, DEFINED THE 99TH PERCENTILE OF cTnI DISTRIBUTION IN A REFERENCE POPULATION, HAS BEEN CONFIRMED THE DECISION THRESHOLD FOR VA DIAGNOSIS. Performed By: #### A MY, LIPA #### [facility] [address] [place] [address] Dr. Grzegorz Wang MITZI 85 ng/mL Critically high 9-82 [facility] Comment on above: Performed By: #### A MY, LIPA #### [facility] [address] [place] [address] Dr. Grzegorz Wang CBC AUTO DIFFon 11-26-2021 BASO # 0.0 103/ul Normal 0.0-0.1 [facility] Comment on above: Performed By: #### A BRAYDEN, LIPA #### [facility] [address] [place] [address] Dr. Grzegorz Wang Basophils/100 WBC (Bld) 0.5 % Normal 0.2-2.0 [facility] Comment on above: Performed By: #### A BRAYDEN, LIPA #### [facility] [address] [place] [address] Dr. Grzegorz Wang EO # 0.1 103/ul Normal 0.0-0.7 [facility] Comment on above: Performed By: #### A BRAYDEN, LIPA #### [facility] [address] [place] [address] Dr. Grzegorz Wang Eosinophils/100 WBC (Bld) 1.3 % Normal 0.9-7.0 [facility] Comment on above: Performed By: #### A MY, LIPA #### [facility] [address] [place] [address] Dr. Grzegorz Wang Erythrocyte distribution width (RBC) [Ratio] 16.8 % Critically high 11.0-15.0 [facility] Comment on above: Performed By: #### A MY, LIPA #### [facility] [address] [place] [address] Dr. Grzegorz Wang Hematocrit (Bld) [Volume fraction] 36.6 % Normal 36.0-48.0 [facility] Comment on above: Performed By: #### A BRAYDEN LIPA #### [facility] [address] [place] [address] Dr. Grzegorz Wang Hemoglobin (Bld) [Mass/Vol] 12.1 g/dL Normal 12.0-16.0 [facility] Comment on above: Performed By: #### A BRAYDEN LIPA #### [facility] [address] [place] [address] Dr. Grzegorz Wang IG # 0.03 10e3/ul Normal 0.00-0.03 [facility] Comment on above: Performed By: #### A BRAYDEN LIPA #### [facility] [address] [place] [address] Dr. Grzegorz Wang IG % 0.5 % Normal 0.0-0.5 [facility] Comment on above: Performed By: #### A BRAYDEN LIPA #### [facility] [address] [place] [address] Dr. Grzegorz Wang LYMPH # 0.9 103/ul Critically low 1.2-3.8 [facility] Comment on above: Performed By: #### A BRAYDEN LIPA #### [facility] [address] [place] [address] Dr. Grzegorz Wang Lymphocytes/100 WBC (Bld) 15.4 % Critically low 20.5-60.0 [facility] Comment on above: Performed By: #### A BRAYDEN LIPA #### [facility] [address] [place] [address] Dr. Grzegorz Wang MANUAL DIFF REQ NO Normal [facility] Comment on above: Performed By: #### A BRAYDEN LIPA #### [facility] [address] [place] [address] Dr. Grzegorz Wang MCH (RBC) [Entitic mass] 27.7 pg Normal 26.7-34.0 [facility] Comment on above: Performed By: #### A BRAYDEN LIPA #### [facility] [address] [place] [address] Dr. Grzegorz Wang MCHC (RBC) [Mass/Vol] 33.1 g/dL Normal 29.9-35.2 [facility] Comment on above: Performed By: #### A BRAYDEN LIPA #### [facility] [address] [place] [address] Dr. Grzegorz Wang MCV (RBC) [Entitic vol] 83.8 fL Normal 81.0-99.0 [facility] Comment on above: Performed By: #### A BRAYDEN LIPA #### [facility] [address] [place] [address] Dr. Grzegorz Wang MONO # 0.5 103/ul Normal 0.3-0.8 [facility] Comment on above: Performed By: #### A BRAYDEN LIPA #### [facility] [address] [place] [address] Dr. Grzegorz Wang Monocytes/100 WBC (Bld) 7.8 % Normal 1.7-12.0 [facility] Comment on above: Performed By: #### A BRAYDEN LIPA #### [facility] [address] [place] [address] Dr. Grzegorz Wang NEUT # 4.5 103/ul Normal 1.4-6.5 [facility] Comment on above: Performed By: #### A BRAYDEN LIPA #### [facility] [address] [place] [address] Dr. Grzegorz Wang Neutrophils/100 WBC (Bld) 74.5 % Normal 43.0-75.0 [facility] Comment on above: Performed By: #### A BRAYDEN LIPA #### [facility] [address] [place] [address] Dr. Grzegorz Wang Platelet mean volume (Bld) [Entitic vol] 11.2 fL Normal 9.5-13.5 [facility] Comment on above: Performed By: #### A BRAYDEN LIPA #### [facility] [address] [place] [address] Dr. Grzegorz Wang PLT 187 103/ul Normal 150-450 [facility] Comment on above: Performed By: #### A BRAYDEN LIPA #### [facility] [address] [place], [place] [address] Dr. Grzegorz Wang RBC 4.37 106/ul Normal 4.20-5.40 [facility] Comment on above: Performed By: #### Luna PHIL OWEN #### [facility] [address] [place], [place] [address] Dr. Grzegorz Wang WBC 6.0 103/ul Normal 4.0-11.0 [facility] Comment on above: Performed By: #### PHIL CHAKRABORTY #### [facility] [address] [address] ABD/PELVIS WO CONon 11-26 CT ABD/PELVIS WO CON EXAMINATION: CT ABD/PELVIS WO CON, 11/26/2021 12:12 PM EDT HISTORY: UNSPECIFIED INJURY OF HEAD, INITIAL ENCOUNTER COMPARISON: Priors reviewed including CT 10/16/2021 TECHNIQUE: CT scan of the abdomen and pelvis was performed without IV contrast. Oral contrast was not administered prior to the examination. Sagittal and coronal reformats were created and saved to PACS. Dose reduction techniques were achieved by using automated exposure control and/or adjustment of mA and/or kV according to patient size and/or use of iterative reconstruction technique. FINDINGS: Noncontrasted nature of the exam limits evaluation of the vascular structures and solid organs. Lung Bases: No acute findings in the visualized lower chest. Atherosclerotic calcification of the coronary arteries. Liver: Normal. Biliary tree: Normal. Gallbladder: Cholecystectomy. Spleen: Normal. Pancreas: Normal. Adrenal glands: Normal. Kidneys and ureters: Low-density lesion about the superior pole left kidney appears unchanged, incompletely characterized without the use of IV contrast, possibly cyst. Negative for hydronephrosis or nephrolithiasis. Bladder: Normal. Reproductive organs: There is unchanged 3.0 cm low-density/cystic adnexal lesion on the right. Hysterectomy. No suspicious left adnexal mass. 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 No findings of obstruction. The appendix is normal. Peritoneum/retroperit oneum: No free fluid or gas. Vasculature: Atherosclerosis without aneurysm. Lymph nodes: Normal. Abdominal wall: Procedure change about the anterior abdominal wall with similar diminutive associated ventral hernias predominantly containing fat and a 1 which contains a small portion of the anterior transverse colonic wall. Musculoskeletal: Degenerative change of the spine. Unchanged minimal 3 4 mm degenerative anterolisthesis L4 on L5. For additional bony findings refer to dedicated CT of the lumbar spine dated same day. IMPRESSION: 1. No acute findings within the abdomen or pelvis given limitations of noncontrast technique. 2. Unchanged 3.0 cm cystic right ovarian lesion as compared to previous CT 10/16/2021. As per previous exam, consider further characterization with dedicated pelvic ultrasound. Electronically authenticated by: MANDI MANRIQUEZ Date: 2021-11-26 15:08 Normal [facility] CT CSPINE WO CONon 2 CT CSPINE WO CON EXAMINATION: CT HEAD WO CON, CT CSPINE WO CON, CT LSPINE WO CON HISTORY: Asthenia , gait abnormality COMPARISON: CT head and CT cervical spine 09/02/2021. TECHNIQUE: CT examination of the head, cervical spine and lumbar spine without IV contrast. Dose reduction techniques were achieved by using automated exposure control and/or adjustment of mA and/or kV according to patient size and/or use of iterative reconstruction technique. FINDINGS: CT head Calvarium/skull base: Small soft tissue contusion along the posterior left occipital scalp. Small soft tissue contusion with overlying laceration with dermal kemi along the posterior left parietal scalp. No evidence of acute fracture or destructive lesion. Mastoids and middle ears demonstrate no substantial mucosal disease. Paranasal sinuses: No air fluid levels. Brain: No acute intracranial hemorrhage. No acute large vascular territory infarct. Remote encephalomalacia involving the left temporal lobe. Remote lacunar infarct of the right caudate head. Similar patchy hypodensities involving the supratentorial white matter which most commonly relates to sequela small vessel disease. Mild generalized parenchymal volume loss with associated prominence of the ventricular system and interval. No hydrocephalus. Intracranial atherosclerosis. Redemonstration of multiple punctate focal calcifications involving the temporal regions and inferior frontal sulci likely relating tovascular calcifications. CT cervical spine Alignment: No substantial subluxation. Vertebrae: Vertebral body heights are maintained. No fracture. Craniocervical junction: No focal abnormality. Degenerative changes: Similar multilevel mild degenerative changes of cervical spine with mild disc height loss and multilevel uncovertebral and varying degrees of facet arthropathy. There is no substantial canal stenosis. No substantial foraminal stenosis. Additional Comments: Multinodular thyroid with subcentimeter nodules accounts patient noted. 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 Partial ossification of ligamentum nuchae posteriorly. CT lumbar spine Alignment: Degenerative grade 1 anterolisthesis of L4 on L5. Mild levocurvature of the lumbar spine with the apex at L3. Vertebrae: Vertebral body heights are maintained. No acute fracture. Degenerative changes: T12-L1: No substantial canal or foraminal stenosis. L1-L2: Left foraminal/extraforami nal protrusion. Mild facet arthropathy with thickening of ligamentum flavum which is partially calcified. No substantial canal stenosis. Moderate left and mild to moderate right foraminal stenosis. L2-L3: Mild facet arthropathy with thickening of ligamentum flavum which is partially calcified. Minimal disc bulge. No substantial canal stenosis. Moderate right and mild to moderate left foraminal stenosis. L3-L4: Mild diffuse disc bulge. Moderate facet arthropathy with thickening of ligamentum flavum. Mild canal stenosis. Mild bilateral foraminal stenosis. L4-L5: Uncovering of the disc secondary to anterolisthesis. Advanced bilateral facet arthropathy. Thickening of ligamentum flavum which is partially calcified. Mild canal stenosis. Moderate bilateral foraminal stenosis. L5-S1: No substantial canal or foraminal stenosis. Upper Sacrum: No focal lesion identified. Additional comments: Atherosclerotic calcification of the abdominal aorta and its branches. Right adnexal 3 cm cyst. IMPRESSION: CT head 1. No acute intracranial hemorrhage or acute large vascular territory infarct. If there is clinical concern for acute ischemia recommend MRI brain for further evaluation. 2. Small soft tissue contusion along the posterior right parietal scalp with overlying dermal laceration with surgical kemi. Small soft tissue contusion overlying the more inferior left occipital scalp. 3. 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 4. Senescent changes detailed above. CT cervical spine 1. No acute fracture or traumatic malalignment of the cervical spine. 2. Similar mild degenerative changes of the cervical spine without substantial canal or foraminal stenosis. CT lumbar spine 1. No acute fracture or traumatic malalignment of the lumbar spine. 2. Mild degenerative changes of lumbar spine detailed above. 3. 3 cm right adnexal cyst considered abnormal given patient's age. If not previously evaluated elsewhere recommend nonemergent pelvic ultrasound for further evaluation. Electronically authenticated by: SHANIA WASHINGTON Date: 2021-11-26 14:44 Normal [facility] ER URINE PROFILEon 2 Bilirubin Ql (U) Negative Normal NEGATIVE [facility] Comment on above: Performed By: #### C BC #### [facility] [address] [place] [address] Dr. Grzegorz Wang Clarity (U) CLEAR Normal CLEAR [facility] Comment on above: Performed By: #### C BC #### [facility] [address] [place] [address] Dr. Grzegorz Wang Color (U) LT. YELLOW Normal YELLOW [facility] Comment on above: Performed By: #### C BC #### [facility] [address] [place] [address] Dr. Grzegorz PÉREZ A micrscopic examination will be performed if indicated. Normal [facility] Comment on above: Performed By: #### C BC #### [facility] [address] [place] [address] Dr. Grzegorz Wang Glucose Ql (U) Negative Normal NEGATIVE [facility] Comment on above: Performed By: #### C BC #### [facility] [address] [place] [address] Dr. Grzegorz Wang Hemoglobin Ql (U) TRACE-INTACT Abnormal NEGATIVE [facility] Comment on above: Performed By: #### C BC #### [facility] [address] [place] [address] Dr. Grzegorz Wang Ketones Ql (U) Negative Normal NEGATIVE [facility] Comment on above: Performed By: #### C BC #### [facility] [address] [place] [address] Dr. Grzegorz Wang LEUKOCYTES Negative Normal NEGATIVE [facility] Comment on above: Performed By: #### C BC #### [facility] [address] [place] [address] Dr. Grzegorz Wang Nitrite Ql (U) Negative Normal NEGATIVE [facility] Comment on above: Performed By: #### C BC #### [facility] [address] [place] [address] Dr. Grzegorz Wang pH (U) 5.5 [pH] Normal 5-9 [facility] Comment on above: Performed By: #### C BC #### [facility] [address] [place] [address] Dr. Grzegorz Wang SPEC GRAVITY <=1.005 Abnormal 1.005-<=1.0 25 [facility] Comment on above: Performed By: #### C BC #### [facility] [address] [place] [address] Dr. Grzegorz Wang UA PROTEIN Negative Normal NEGATIVE/ TRACE [facility] Comment on above: Performed By: #### C BC #### [facility] [address] [place] [address] Dr. Grzegorz Wang UR MICRO IND INDICATED Normal [facility] Comment on above: Performed By: #### C BC #### [facility] [address] [place] [address] Dr. Grzegorz Wang Urobilinogen Qn (U) 0.2 {Lidya'U}/dL Normal 0.2 - 1. 0 [facility] Comment on above: Performed By: #### C BC #### [facility] [address] [place] [address] Dr. Grzegorz Wang PROF 14(COMP METB)on 022 Albumin [Mass/Vol] 3.5 g/dL Normal 3.4-5.0 [facility] Comment on above: Performed By: #### A BRAYDEN LIPA #### [facility] [address] [place] [address] Dr. Grzegorz Wang Albumin/Globulin [Mass ratio] 1.1 {ratio} Normal [facility] Comment on above: Performed By: #### A BRAYDEN LIPA #### [facility] [address] [place] [address] Dr. Grzegorz Wang ALP [Catalytic activity/Vol] 89 U/L Normal 46-116 [facility] Comment on above: Performed By: #### A BRAYDEN, LIPA #### [facility] [address] [place] [address] Dr. Grzegorz Wang ALT [Catalytic activity/Vol] 22 U/L Normal 14-59 [facility] Comment on above: Performed By: #### A MY, LIPA #### [facility] [address] [address] [address] Grzegorz Wang Anion gap [Moles/Vol] 10.2 mmol/L Normal [facility] Comment on above: Performed By: #### A MY, LIPA #### [facility] [address] [address] [address] Grzegorz Wang AST [Catalytic activity/Vol] 18 U/L Normal 15-37 [facility] Comment on above: Performed By: #### A MY, LIPA #### [facility] [address] [address] [address] Grzegorz Wang Bilirubin [Mass/Vol] 0.6 mg/dL Normal 0.2-1.0 [facility] Comment on above: Performed By: #### A MY, LIPA #### [facility] [address] [place] [address] Dr. Grzegorz Wang Calcium [Mass/Vol] 9.1 mg/dL Normal 8.5-10.1 [facility] Comment on above: Performed By: #### A MY, LIPA #### [facility] [address] [address] [address] Grzegorz Wang Chloride [Moles/Vol] 106 mmol/L Normal 98-107 [facility] Comment on above: Performed By: #### A MY, LIPA #### [facility] [address] [address] [address] Grzegorz Wang CO2 [Moles/Vol] 29.5 mmol/L Normal 21.0-32.0 [facility] Comment on above: Performed By: #### A MY, LIPA #### [facility] [address] [address] [address] Grzegorz Wang Creatinine [Mass/Vol] 0.86 mg/dL Normal 0.55-1.02 [facility] Comment on above: Performed By: #### A MY, LIPA #### [facility] [address] [place] [address] Dr. Grzegorz Wang EGFR-AF [place] >60 Normal >=60 [facility] Comment on above: Performed By: #### A MY, LIPA #### [facility] [address] [address] [address] Grzegorz Wang EGFR-NON AF [place] >60 Normal >=60 [facility] Comment on above: Performed By: #### A MY, LIPA #### [facility] [address] [address] [address] Grzegorz Wang Globulin (S) [Mass/Vol] 3.1 g/dL Normal T [facility] Comment on above: Performed By: #### A MY, LIPA #### [facility] [address] [address] [address] Grzegorz Wang Glucose [Mass/Vol] 98 mg/dL Normal 74-106 [facility] Comment on above: Performed By: #### A MY, LIPA #### [facility] [address] [place] [address] Dr. Grzegorz Wang Potassium [Moles/Vol] 2.7 mmol/L Critically low 3.5-5.1 [facility] Comment on above: Performed By: #### A BRAYDEN, LIPA #### [facility] [address] [address] [address] Grzegroz Wang Protein [Mass/Vol] 6.6 g/dL Normal 6.4-8.2 [facility] Comment on above: Performed By: #### A MY, LIPA #### [facility] [address] [address] [address] Grzegorz Wang Sodium [Moles/Vol] 143 mmol/L Normal 136-145 [facility] Comment on above: Performed By: #### A MY, LIPA #### [facility] [address] [address] [address] Grzegorz Wang Urea nitrogen [Mass/Vol] 12.0 mg/dL Normal 7.0-18.0 [facility] Comment on above: Performed By: #### A MY, LIPA #### [facility] [address] [address] [address] Grzegorz Wang Urea nitrogen/Creatinine [Mass ratio] 14.0 mg/mg Normal [facility] Comment on above: Performed By: #### A PHIL OWEN #### [facility] [address] [place] [address] Dr. Grzegorz Wang PROTIMEon 11-26-2021 INR Coag (PPP) [Relative time] 1.00 {INR} Normal [facility] Comment on above: Performed By: #### C BC #### [facility] [address] [place] [address] Dr. Grzegorz Wang INR GUIDELINES SEE BELOW Normal [facility] Comment on above: Result Comment: DENTON RED INR: 2.0 - 3.0 CONDITIONS NOT LISTED BELOW 2.5 - 3.5 FOR PROSTHETIC HEART VALVE REPLACEMENT 2.5 - 3.5 RECURRENT THROMBOSIS Performed By: #### C BC #### [facility] [address] [place] [address] Dr. Grzegorz Wang PT Coag (PPP) [Time] 10.8 s Normal 9.0-11.6 [facility] Comment on above: Performed By: #### C BC #### [facility] [address] [place] [address] Dr. Grzegorz Wang PTTon 11-26-2021 aPTT Coag (Bld) [Time] 23.1 s Normal 22.3-36.2 [facility] Comment on above: Performed By: #### C BC #### [facility] [address] [place] [address] Dr. Grzegorz Wang URINE MICROSCOPIC ONLYon BACTERIA NONE SEEN Normal NONE SEEN [facility] Comment on above: Performed By: #### C BC #### [facility] [address] [place] [address] Dr. Grzegorz Wang Bacteria identified Cx Nom (U) NOT INDICATED Normal [facility] Comment on above: Performed By: #### C BC #### [facility] [address] [place] [address] Dr. Grzegorz Wang CAST NONE SEEN Normal NONE SEEN [facility] Comment on above: Performed By: #### C BC #### [facility] [address] [place] [address] Dr. Grzegorz Wang Crystals LM Nom (Urine sed) NONE SEEN Normal NONE SEEN [facility] Comment on above: Performed By: #### C BC #### [facility] [address] [place] [address] Dr. Grzegorz Wang Epithelial cells LM Ql (Urine sed) FEW Abnormal NONE SEEN /RARE [facility] Comment on above: Performed By: #### C BC #### [facility] [address] [place] [address] Dr. Grzegorz Wang MUCOUS NONE SEEN Normal NONE SEEN [facility] Comment on above: Performed By: #### C BC #### [facility] [address] [place] [address] Dr. Grzegorz Wang RBC 0-2 Normal 0-2 [facility] Comment on above: Performed By: #### C BC #### [facility] [address] [place] [address] Dr. Grzegorz Wang WBC 0-2 Abnormal NONE SEEN [facility] Comment on above: Performed By: #### C BC #### [facility] [address] [place] [address] Dr. Grzegorz Wang XR CHEST 1 Von 11-26-2021 XR CHEST 1 V EXAM: Chest x-ray HISTORY: . Asthenia . COMPARISON: 09/02/2021 TECHNIQUE: Single view of the chest. FINDINGS: Heart and vascularity are unremarkable. Lungs are free of focal infiltrates. Loop recorder overlies the left heart border. Atherosclerotic changes of the thoracic aorta are noted. Impression: No acute heart or lung disease identified. Electronically authenticated by: NATACHA CERNA Date: 2021-11-26 14:21 Normal [facility] CT BRAIN HEAD WO CONTRASTon 11-24-2021 CT BRAIN HEAD WO CONTRAST EXAM DESCRIPTION: CT BRAIN HEAD WO CONTRAST CLINICAL HISTORY: TRAUMA TECHNIQUE: 5 mm axial images were obtained through the brain without IV contrast. This exam was performed according to our departmental dose-optimization program which includes use of Automated Exposure Control, adjustment of the mA and/or kV according to patient size and/or use of iterative reconstruction technique. COMPARISON: None. FINDINGS: The brain parenchyma appears age appropriate with diffuse cerebral atrophy. There are faint low-density changes in the left temporal region compatible with minor encephalomalacia from previous infarct. There is no intra-axial or extra-axial bleed seen. There is no mass or mass effect. There is no evidence of hydrocephalus. The orbital contents appear unremarkable. The visualized paranasal sinuses and mastoid air cells are patent. There is evidence of a left parietal cephalohematoma. No fracture is present. IMPRESSION: No acute intracranial abnormality. 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 Senescent changes as described above. Electronically signed by: Ismael Aguilar MD 11/24/2021 1:21 PM CDT Technologist: WENDY CHAVEZ Dictated By: ISMAEL AGUILAR MD Signed By: ISMAEL AGUILAR MD Signed Out: 11/24/21 14:21:18 Normal [facility] ED Adult Data - Texton 11-24 ED Adult Data - Text ED Adult Data Enter ed On: 11/24/2021 15:26 EDT Performed On: 11/24/2021 15:25 EDT by Jennifer Mccarthy RN Arrival Information Referral Source ED : Home [facility] Mode of Arrival : Car / Walk-In Jennifer Mccarthy RN - 11/24/2021 15:25 EDT Screening-General Meds Triage : Unknown Accept Blood Products if Necessary : Yes Immunizations Current : Unknown Last Tetanus : Unknown Status : N/A Jennifer Mccarthy RN - 11/24/2021 15:25 EDT Depression Screening Patient able to verbalize? : Yes Feeling Down, Depressed, Hopeless : Not at all Little Interest - Pleasure in Activities : Not at all Initial Depression Screen Score : 0 Depression Screening Score 0 : No IP Pt being evaluated or treated for BH conditions : No Jennifer Mccarthy RN - 11/24/2021 15:25 EDT Screening-Safety Abuse/Violence Concerns? : Patient denies Does the patient have a medically restricted extremity? : No Jennifer Mccarthy RN - 11/24/2021 15:25 EDT Problem List Problem List obtained from : Patient Jennifer Mccarthy RN - 11/24/2021 15:25 EDT (As Of: 11/24/2021 15:26:01 EDT) Diagnoses(Active) Fall Date: 11/24/2021 ; Diagnosis Type: Reason For Visit ; Confirmation: Confirmed ; Clinical Dx: Fall ; Classification: Medical ; Clinical Service: Non-Specified ; Code: PNED ; Probability: 0 ; Diagnosis Code: [id number] Fall Date: 11/24/2021 ; Diagnosis Type: Reason For Visit ; Confirmation: Confirmed ; Clinical Dx: Fall ; Classification: Medical ; Clinical Service: Emergency medicine ; Code: PNED ; Probability: 0 ; Diagnosis Code: [id number] Procedure History ED Devices Present on Arrival To ED : None Urinary Catheter Present on Admit to ED : No Jennifer Mccarthy RN - 11/24/2021 15:25 EDT - Procedure History (As Of: 11/24/2021 15:26:01 EDT) Social History Does pt have any alcohol,drugs or tobacco : No Do you consume Alcohol : No Social History obtained from : Patient Jennifer Mccarthy RN - 11/24/2021 15:25 EDT Social History (As Of: 11/24/2021 15:26:01 EDT) Family History Family History (As Of: 11/24/2021 15:26:01 EDT) Infection Screening Travel outside [place] within past 30 days : No Exposure AND/OR close contact with a person under investigation or laboratory-confirmed COVID-19 individual within 14 days of symptom onset AND/OR any of the following: : No Do you live/work in a high risk situation (congregated living, hemodialysis, infusion clinic, snf, assisted living, fdc, homeless custodial, etc.)? : No Jennifer Mccarthy RN - 11/24/2021 15:25 EDT Normal [facility] ED Discharge Educationon ED Discharge Education Dermatology Cuts Closed With Kemi: Care Instructions Your Care Instructions A cut can happen anywhere on your body. The doctor used kemi to close the cut. [place] easily and quickly close a cut, which helps the cut heal. Sometimes a cut can injure tendons, blood vessels, or nerves. If the cut went deep and through the skin, the doctor may have put in a layer of stitches below the kemi. The deeper layer of stitches brings the deep part of the cut together. These stitches will dissolve and don't need to be removed. The kemi in the upper layer are what you see on the cut. You may have a bandage. You will need to have the kemi removed, usually in 7 to 14 days. The doctor has checked you carefully, but problems can develop later. If you notice any problems or new symptoms, get medical treatment right away. Follow-up care is a jordan part of your treatment and safety. Be sure to make and go to all appointments, and call your doctor if you are having problems. It's also a good idea to know your test results and keep a list of the medicines you take. How can you care for yourself at home? ? Keep the cut dry for the first 24 to 48 hours. After this, you can shower if your doctor okays it. Pat the cut dry. ? Don't soak the cut, such as in a bathtub. Your doctor will tell you when it's safe to get the cut wet. ? If your doctor told you how to care for your cut, follow your doctor's instructions. If you did not get instructions, follow this general advice: ? After the first 24 to 48 hours, wash around the cut with clean water 2 times a day. Don't use hydrogen peroxide or alcohol, which can slow healing. ? You may cover the cut with a thin layer of petroleum jelly, such as Vaseline, and a nonstick bandage. ? Apply more petroleum jelly and replace the bandage as needed. ? Avoid any activity that could cause your cut to reopen. ? Do not remove the kemi on your own. Your doctor will tell you when to come back to have the kemi removed. ? Take pain medicines exactly as directed. ? If the doctor gave you a prescription medicine for pain, take it as prescribed. ? If you are not taking a prescription pain medicine, ask your doctor if you can take an [id number] medicine. When should you call for help? Call your doctor now or seek immediate medical care if: ? You have new pain, or your pain gets worse. ? The skin near the cut is cold or pale or changes color. ? You have tingling, weakness, or numbness near the cut. ? The cut starts to bleed, and blood soaks through the bandage. Oozing small amounts of blood is normal. ? You have trouble moving the area near the cut. ? You have symptoms of infection, such as: ? Increased pain, swelling, warmth, or redness around the cut. ? Red streaks leading from the cut. ? Pus draining from the cut. ? A fever. Watch closely for changes in your health, and be sure to contact your doctor if: ? You do not get better as expected. Where can you learn more? Go to https://www.[email or web address]/patientEd Enter E525 in the search box to learn more about Cuts Closed With [place]: Care Instructions. Current as of: April 08, 2019 Content Version: 12.7 ? [employer]. Care instructions adapted under license by your healthcare professional. If you have questions about a medical condition or this instruction, always ask your healthcare professional. [employer] disclaims any warranty or liability for your use of this information. Neurology Learning About a Closed Head Injury What is a closed head injury? A closed head injury happens when your head gets hit hard. The strong force of the blow causes your brain to shake in your skull. This movement can cause the brain to bruise, swell, or tear. Sometimes nerves or blood vessels also get damaged. This can cause bleeding in or around the brain. A concussion is a type of closed head injury. What are the symptoms? If you have a mild concussion, you may have a mild headache or feel not quite right. These symptoms are common. They usually go away over a few days to 4 weeks. But sometimes after a concussion, you feel like you can't function as well as before the injury. And you have new symptoms. This is called postconcussive syndrome. You may: ? Find it harder to solve problems, think, concentrate, or remember. ? Have headaches. ? Have changes in your sleep patterns, such as not being able to sleep or sleeping all the time. ? Have changes in your personality. ? Not be interested in your usual activities. ? Feel angry or anxious without a clear reason. ? Lose your sense of taste or smell. ? Be dizzy, lightheaded, or unsteady. It may be hard to stand or walk. How is a closed head injury treated? Any person who may have a concussion needs to see a doctor. Some people have to stay in the hospital to be watched. Others can go home safely. If you go home, follow your doctor's instructions. He or she will (more content not included)... Normal [facility] ED Emergency Severity Index Adult-Texton 11-24-2021 ED Emergency Severity Index Adult-Text JUSTINO - Adult Entered On: 11/24/2021 12:33 EDT Performed On: 11/24/2021 12:33 EDT by Jennifer Mccarthy RN JUSTINO DCP GENERIC CODE Visit Reason : FALL Tracking Triage Date/Time : 11/24/2021 12:33 EDT Tracking Reg Status : Requested Tracking Acuity : [id number] Tracking Group : [id number] Tracking Jennifer Mccarthy RN - 11/24/2021 12:33 EDT Normal [facility] ED Nrsing Adlt Triage Sep Sc rning - Texton 11-24-2021 ED Nrsing Adlt Triage Sep Scrning - Text ED Nursing Adult Triage Sepsis Screening Tool Entered On: 11/24/2021 13:00 EDT Performed On: 11/24/2021 13:00 EDT by Jennifer Mccarthy RN Adult Sepsis Screening Sepsis Infection Screening ED : Yes Sepsis Vitals Screening ED : None/ NA(Peds) Jennifer Mccarthy RN - 11/24/2021 13:00 EDT Normal [facility] ED Patient Summaryon 022 ED Patient Summary [facility] Emergency Department Discharge Instructions [address] [place] [address] \.br\(Patient Copy)\.br\ \.br\Name: BALTAOZZIE : 1950 \.br\Allergies: penicillin\.br\Diagno sis: Accidental fall; CHI (closed head injury); Contusion of rib on right side; Laceration of scalp\.br\ \.br\ Visit Date: 11/24/2021 12:30:03 \.br\ Current Date Time: 11/24/2021 17:30:08 \.br\Address: [facility] [place] [address] \.br\ \.br\ \.br\Primary Care Provider: \.br\Name: NO FAMILY PHYSICIAN, 837\.br\Phone: \.br\ \.br\Emergency Department Care Providers: \.br\ Primary Physician: LUIS MCKEON MD \.br\ \.br\ \.br\.br\Thank you for choosing [facility] for your emergency care. You are very important to us. Our goal is to demonstrate our high quality medical care, and provide you with a very good patient experience.\.br\.br\ You may receive a survey about our service. Please take the time to complete the survey and return it so we can continue to enhance our service.\.br\.br\Maxx nk you again for allowing the [facility] Emergency Department to care for your medical needs. If you have questions about your care or follow up information please contact us at [phone].\.br\.b r\ Follow-Up Instructions\.br\____ _\.br\OZZIE GIFFORD has been given these follow-up instructions:\.br\.b r\.br\With: Address: When: \.br\[facility] [address], [address] [place] [address]\.br\ Business (1) Within 7 to 10 days \.br\.br\.br\With: Address: When: \.br\[address] [facility] Within 3 to 5 days \.br\.br\.br\.br\ .br\Patient Education Materials\.br\ \. br\OZZIE GIFFORD has been given the following patient education materials:\.br\.br\C uts Closed With Kemi: Care Instructions\.br\Your Care Instructions\.br\A cut can happen anywhere on your body.\.br\The doctor used kemi to close the cut. Kemi easily and quickly close a cut, which helps the cut heal.\.br\Sometimes a cut can injure tendons, blood vessels, or nerves. If the cut went deep and through the skin, the doctor may have put in a layer of stitches below the kemi. The deeper layer of stitches brings the deep part of the cut together. These stitches will dissolve and don't need to be removed. The kemi in the upper layer are what you see on the cut.\.br\You may have a bandage. You will need to have the kemi removed, usually in 7 to 14 days.\.br\The doctor has checked you carefully, but problems can develop later. If you notice any problems or new symptoms, get medical treatment right away.\.br\Follow-up care is a jordan part of your treatment and safety. Be sure to make and go to all appointments, and call your doctor if you are having problems. It's also a good idea to know your test results and keep a list of the medicines you take.\.br\How can you care for yourself at home?\.br\? Keep the cut dry for the first 24 to 48 hours. After this, you can shower if your doctor okays it. Pat the cut dry.\.br\? Don't soak the cut, such as in a bathtub. Your doctor will tell you when it's safe to get the cut wet.\.br\? If your doctor told you how to care for your cut, follow your doctor's instructions. If you did not get instructions, follow this general advice: \.br\? After the first 24 to 48 hours, wash around the cut with clean water 2 times a day. Don't use hydrogen peroxide or alcohol, which can slow healing.\.br\? You may cover the cut with a thin layer of petroleum jelly, such as Vaseline, and a nonstick bandage.\.br\? Apply more petroleum jelly and replace the bandage as needed.\.br\? Avoid any activity that could cause your cut to reopen.\.br\? Do not remove the kemi on your own. Your doctor will tell you when to come back to have the kemi removed.\.br\? Take pain medicines exactly as directed. \.br\? If the doctor gave you a prescription medicine for pain, take it as prescribed.\.br\? If you are not taking a prescription pain medicine, ask your doctor if you can take an wasy-hse-ieojjvk medicine.\.br\When should you call for help?\.br\ Call your doctor now or seek immediate medical care if: \.br\ ? You have new pain, or your pain gets worse. \.br\ ? The skin near the cut is cold or pale or changes color. \.br\ ? You have tingling, weakness, or numbness near the cut. \.br\ ? The cut starts to bleed, and blood soaks through the bandage. Oozing small amounts of blood is normal. \.br\ ? You have trouble moving the area near the cut. \.br\ ? You have symptoms of infection, such as: \.br\? Increased pain, swelling, warmth, or redness around the cut.\.br\? Red streaks leading from the cut.\.br\? Pus draining from the cut.\.br\? A fever. \.br\Watch closely for changes in your health, and be sure to contact your doctor if:\.br\ ? You do not get b (more content not included)... Normal [facility] ED Physician Reporton 2021 ED Physician Report Patient: OZZIE GIFFORD Age: 71 years Sex: Female : 1950 Associated Diagnoses: Accidental fall; CHI (closed head injury); Laceration of scalp; Contusion of rib on right side; Lung nodule Author: LUIS MCKEON MD Basic Information Time seen: Time Seen: LUIS MCKEON MD / 11/24/2021 12:34 . History source: Patient. Arrival mode: Ambulance. History limitation: None. History of Present Illness The patient presents following fall. The onset was just prior to arrival. The occurrence was single episode. The fall was described as slipped. The location where the incident occurred was [facility]. Location: Posterior head. The character of symptoms is pain. Therapy today: see nurses notes. Associated symptoms: denies loss of consciousness. This is a 71 y/o female presenting to the ED via EMS for evaluation of a mechanical fall. The patient states she was at the [facility] [employer] and she was going down steps and she fell backwards and hit the back of her head. The patient denies any LOC, neck pain, or numbness or weakness. She also states on Saturday she had another mechanical fall on Saturday and she fell on her back. Patient has voiced no other complaints or concerns at this time.. Review of Systems Constitutional symptoms: Negative except as documented in HPI. Skin symptoms: Negative except as documented in HPI. Eye symptoms: Negative except as documented in HPI. ENMT symptoms: Negative except as documented in HPI. Respiratory symptoms: Negative except as documented in HPI. Cardiovascular symptoms: Negative except as documented in HPI. Gastrointestinal symptoms: Negative except as documented in HPI. Genitourinary symptoms: Negative except as documented in HPI. Musculoskeletal symptoms: Negative except as documented in HPI. Psychiatric symptoms: Negative except as documented in HPI. Endocrine symptoms: Negative except as documented in HPI. Hematologic/Lymphatic symptoms: Negative except as documented in HPI. Allergy/immunologic symptoms: Negative except as documented in HPI. Neurologic symptoms Negative except as documented in HPI. Additional review of systems information: All other systems reviewed and otherwise negative. Health Status Allergies: No known allergies. Medications: (Selected) , per nurse's notes. Immunizations: Include Immunizations Previous No previous immunizations have been selected or recorded. Future No future immunizations have been selected or recorded. , per nurse's notes. Past Medical/ Family/ Social History Medical history: No active or resolved past medical history items have been selected or recorded., Reviewed as documented in chart. Surgical history: No active procedure history items have been selected or recorded., Reviewed as documented in chart. Family history: No family history items have been selected or recorded., Reviewed as documented in chart. Social history: Reviewed as documented in chart. Problem list: No qualifying data available , per nurse's notes. Physical Examination Vital Signs Vital Signs 11/24/2021 12:00 EDT Temperature Oral 36.5 degC NORMAL Peripheral Pulse Rate 65 bpm NORMAL Respiratory Rate 16 br/min NORMAL Systolic Blood Pressure 175 mmHg HI Diastolic Blood Pressure 93 mmHg HI SpO2 100 % NORMAL Oxygen Therapy Room air . General: Alert, no acute distress. Skin: Warm, dry, intact, no rash. Head: Normocephalic, atraumatic, posterior scalp hematoma and contusion. Neck: Supple, trachea midline. Eye: Pupils are equal, round and reactive to light, extraocular movements are intact, normal conjunctiva. Ears, nose, mouth and throat: Oral mucosa moist. Cardiovascular: Regular rate and rhythm, No murmur, No edema, Arterial pulses: Equal and symmetric in all extremities. Respiratory: Lungs are clear to auscultation, respirations are non-labored, breath sounds are equal. Gastrointestinal: Soft, Nontender, Non distended, Normal bowel sounds. Back: right lateral thoracic trunk hematoma and ecchymosis, No midline cervical thoracic or lumbar tenderness, patient is tender all over the right lateral ribs and trunk, no CVA tenderness. Musculoskeletal: Normal ROM, normal strength, no tenderness, no swelling, no deformity. Psychiatric: Cooperative. [place] coma scale Eye response: 4 /4, verbal response: 5 /5, motor response: 6 /6, Total score: Total score: 15. Neurological Alert and oriented to person, place, time, and situation, No focal neurological deficit observed, CN II-XII intact, normal sensory observed, normal speech observed, Motor strength: Proximal right upper extremity 5 /5, distal right upper extremity 5 /5, proximal left upper extremity 5 /5, distal left upper extremity 5 /5, right lower extremity 5 /5, left lower extremity 5 /5. Medical Decision Making Radiology results: CT BRAIN/HEAD WITHOUT CONTRAST 11/24/21 13:01:00 EXAM DESCRIPTION: CT BRAIN HEAD WO CONTRAST (more content not included)... Normal [facility] ED Pre-Arrival Formon 2021 ED Pre-Arrival Form Pre-Arrival Summary Name: KARTIK, Current Date: 11/24/2021 12:31:19 EDT Gender: Date of : Age: Pre-Arrival Type: EMS ETA: 11/24/2021 12:53:00 EDT Primary Care Physician: Presenting Problem: Pre-Arrival User: Kailyn Jacobs RN Referring Source: Location: 1 [facility] Emergency Department [address] [place] [address]. [place] [address] Notes: Vital Signs: Doctor Call Back: DNR Status: Miscellaneous Issues: Normal [facility] ED Progress Noteon ED Progress Note Pt presents to ED vi a EMS for c/o fall, [place], pt denies dizziness, pt states she tripped over her feet, pt has a small lac on the back of her head, pt is alert and oriented, respirations even and unlabored cleaned up the posterior part of pt's head, Dr. Mckeon updated n pt 1700-Pt d/c from facility, d/c instructions discussed in detail with pt, pt verbalized understanding, pt ambulatory with steady gait Normal [facility] ED Triage Adult-Texton 11-24 ED Triage Adult-Text ED Triage Entered O n: 11/24/2021 13:00 EDT Performed On: 11/24/2021 12:59 EDT by Jennifer Mccarthy RN Triage (As Of: 11/24/2021 13:00:25 EDT) Diagnoses(Active) Fall Date: 11/24/2021 ; Diagnosis Type: Reason For Visit ; Confirmation: Confirmed ; Clinical Dx: Fall ; Classification: Medical ; Clinical Service: Non-Specified ; Code: PNED ; Probability: 0 ; Diagnosis Code: [id number] (As Of: 11/24/2021 13:00:25 EDT) Vitals/Ht/Wt Temperature Oral : 36.5 degC Pulse Rate : 65 bpm Respiratory Rate : 18 br/min Systolic Blood Pressure : 175 mmHg (HI) Diastolic Blood Pressure : 93 mmHg (HI) SpO2 : 100 % Oxygen Therapy : Room air Pain Symptoms : Yes Height/Length Dosing : 157.48 cm(Converted to: 5.17 ft, 62.00 in) Weight Measured Type of Scale : Bed Scale (digital) Weight Dosing : 59.1 kg(Converted to: 2,084.691 oz, 130.293 lb) Body Mass Index Dosing : 24 Jennifer Mccarthy RN - 11/24/2021 12:59 EDT Normal [facility] Urine culture routineOrdered By: Rafiq Bahena on 11-23-2021 Bacteria identified Cx Nom (U) Escherichia coli [facility] Albumin [Mass/volume] in Ser um or PlasmaOrdered By: Ashleigh Rashid on 11-22-2021 Albumin [Mass/Vol] 3.0 g/dL 3.2-5.5 [facility] Basophils Auto (Bld) [#/Vol] Ordered By: Ashleigh Rashid on 11-22-2021 Basophils (Bld) [#/Vol] 0.0 10*3/uL 0.0-0.2 [facility] Basophils/100 WBC Auto (Bld) Ordered By: Ashleigh Rashid on 11-22-2021 Basophils/100 WBC (Bld) 0.6 % . [facility] Creatinine and Glomerular fi ltration rate.predicted panel (S/P/Bld)Ordered By: Ashleigh Rashid on 11-22-2021 Creatinine [Mass/Vol] 1.10 mg/dL 0.44-1.[address] [facility] Comment on above: Delta: 2.08 on 11/21 Eosinophils Auto (Bld) [#/Vo l]Ordered By: Ashleigh Rashid on 11-22-2021 Eosinophils (Bld) [#/Vol] 0.2 10*3/uL 0.0-0.45 [facility] Eosinophils/100 WBC Auto (Bl d)Ordered By: Ashleigh Rashid on 11-22-2021 Eosinophils/100 WBC (Bld) 4.4 % . [facility] Erythrocyte distribution wid th Auto (RBC) [Ratio]Ordered By: Ashleigh Rashid on 11-22-2021 Erythrocyte distribution width (RBC) [Ratio] 20.7 % 11.9-15.3 [facility] Estimated glomerular filtrat ion rate (GFR) non- AmericanOrdered By: Ashleigh Rashid on 11-22-2021 GFR/1.73 sq M.predicted among non-blacks MDRD (S/P/Bld) [Vol rate/Area] 49 mL/Min [facility] Globulin Calc (S) [Mass/Vol] Ordered By: Ashleigh Rashid on 11-22-2021 Globulin (S) [Mass/Vol] 2.4 g/dL [facility] Hematocrit Auto (Bld) [Volum e fraction]Ordered By: Ashleigh Rashid on 11-22-2021 Hematocrit (Bld) [Volume fraction] 36.9 % 34.0-46.4 [facility] Hemoglobin [Mass/volume] in BloodOrdered By: Ashleigh Rashid on 11-22-2021 Hemoglobin (Bld) [Mass/Vol] 12.1 g/dL 11.8-15.4 [facility] Laboratory - Chemistry and C hemistry - challengeOrdered By: Ashleigh Rashid on 11-22-2021 Magnesium [Mass/Vol] 2.1 mg/dL 1.6-2.6 [facility] - Hematology and Cell countsOrdered By: Ashleigh Rashid on 11-22-2021 Nucleated RBC/100 WBC (Bld) [Ratio] 0.1 % 0-0.5 [facility] Leukocytes [#/volume] in Blo od by Automated countOrdered By: Ashleigh Rashid on 11-22-2021 WBC (Bld) [#/Vol] 4.7 10*3/uL 4.5-11.0 [facility] Lymphocytes Auto (Bld) [#/Vo l]Ordered By: Ashleigh Rashid on 11-22-2021 Lymphocytes (Bld) [#/Vol] 1.2 10*3/uL 1.00-4.8 [facility] Lymphocytes/100 WBC Auto (Bl d)Ordered By: Ashleigh Rashid on 11-22-2021 Lymphocytes/100 WBC (Bld) 26.0 % . [facility] MCH Auto (RBC) [Entitic mass ]Ordered By: Ashleigh Rashid on 11-22-2021 MCH (RBC) [Entitic mass] 27.2 pg 24.7-34.3 [facility] MCHC Auto (RBC) [Mass/Vol]Or dered By: Ashleigh Rashid on 11-22-2021 MCHC (RBC) [Mass/Vol] 32.6 g/dL 32.0-35.[address] [facility] MCV Auto (RBC) [Entitic vol] Ordered By: Ashleigh Rashid on 11-22-2021 MCV (RBC) [Entitic vol] 83.5 fL 80-100 [facility] Monocytes Auto (Bld) [#/Vol] Ordered By: Ashleigh Rashid on 11-22-2021 Monocytes (Bld) [#/Vol] 0.4 10*3/uL 0.0-0.8 [facility] Monocytes/100 WBC Auto (Bld) Ordered By: Ashleigh Rashid on 11-22-2021 Monocytes/100 WBC (Bld) 8.4 % . [facility] Neutrophils Auto (Bld) [#/Vo l]Ordered By: Ashleigh Rashid on 11-22-2021 Neutrophils (Bld) [#/Vol] 2.8 10*3/uL 1.8-7.7 [facility] Neutrophils/100 WBC Auto (Bl d)Ordered By: Ashleigh Rashid on 11-22-2021 Neutrophils/100 WBC (Bld) 60.6 % . [facility] No Panel InformationOrdered By: Ashleigh Rashid on 11-22-2021 Estimated GFR () 59 mL/Min [facility] Comment on above: GFR estimated refere nce range: According to KDOQI guidelines, <60 ml/min/1.73m2 is sufficient to diagnose a patient with chronic kidney disease. Pharmacy Creatinine Clearance (Chem 44.22 [facility] Platelet mean volume Auto (B ld) [Entitic vol]Ordered By: Ashleigh Rashid on 11-22-2021 Platelet mean volume (Bld) [Entitic vol] 9.7 fL 6.3-10.7 [facility] Platelets Auto (Bld) [#/Vol] Ordered By: Ashleigh Rashid on 11-22-2021 Platelets (Bld) [#/Vol] 184 10*3/uL 150-450 [facility] Protein [Mass/volume] in Ser um or PlasmaOrdered By: Ashleigh Rashid on 11-22-2021 Protein [Mass/Vol] 5.4 g/dL 6.1-7.9 [facility] RBC Auto (Bld) [#/Vol]Ordere d By: Ashleigh Rashid on 11-22-2021 RBC (Bld) [#/Vol] 4.43 10*6/uL 3.60-5.00 [facility] Serum or plasma alanine zapata otransferase measurement without P-5'-P (enzymatic activiOrdered By: Ashleigh Rashid on 11-22-2021 ALT No additional P-5'-P [Catalytic activity/Vol] 16 U/L 1060 [facility] Serum or plasma albumin/glob ulin mass ratioOrdered By: Ashleigh Rashid on 11-22-2021 Albumin/Globulin [Mass ratio] 1.3 {ratio} [facility] Serum or plasma alkaline brandy sphatase measurement (enzymatic activity/volume)Ordered By: Ashleigh Rashid on 11-22-2021 ALP [Catalytic activity/Vol] 70 U/L 32-92 [facility] Serum or plasma anion gap de terminationOrdered By: Ashleigh Rashid on 11-22-2021 Anion gap [Moles/Vol] 12.2 mmol/L 6.0-15.0 [facility] Serum or plasma aspartate am inotransferase measurement (enzymatic activity/volume)Ordered By: Ashleigh Rashid on 11-22-2021 AST [Catalytic activity/Vol] 15 U/L 10-42 [facility] Serum or plasma calcium lay urement (mass/volume)Ordered By: Ashleigh Rashid on 11-22-2021 Calcium [Mass/Vol] 8.9 mg/dL 8.2-10.2 [facility] Serum or plasma chloride rosaline surement (moles/volume)Ordered By: Ashleigh Rashid on 11-22-2021 Chloride [Moles/Vol] 115 mmol/L 95-114 [facility] Serum or plasma glucose lay urement (mass/volume)Ordered By: Ashleigh Rashid on 11-22-2021 Glucose [Mass/Vol] 93 mg/dL 70-100 [facility] Comment on above: ADA recommended refe rence rangeRandom Glucose Reference Range is dependent on time and content of last meal. Glucose of more than 200 mg/dL in a nonstressed, ambulatory subject supports the diagnosis of Diabetes Mellitus. Serum or plasma potassium me asurement (moles/volume)Ordered By: Ashleigh Rashid on 11-22-2021 Potassium [Moles/Vol] 3.1 mmol/L 3.5-5.[address] [facility] Serum or plasma sodium measu rement (moles/volume)Ordered By: Ashleigh Rashid on 11-22-2021 Sodium [Moles/Vol] 147 mmol/L 136-146 [facility] Serum or plasma total biliru bin measurement (mass/volume)Ordered By: Ashleigh Rashid on 11-22-2021 Bilirubin [Mass/Vol] 0.7 mg/dL 0.3-1.2 [facility] Serum or plasma total carbon dioxide measurement (moles/volume)Ordered By: Ashleihg Rashid on 11-22-2021 CO2 [Moles/Vol] 22.9 mmol/L 22.0-30.0 [facility] Serum or plasma urea nitroge n measurement (mass/volume)Ordered By: Ashleigh Rashid on 11-22-2021 Urea nitrogen [Mass/Vol] 28 mg/dL 9-23 [facility] Amphetamine Screen Ql (U)Ord ered By: Rafiq Bahena on 11-21-2021 Amphetamines Ql (U) Negative Negative [facility] Automated erythrocytes count in urine sediment (number/area)Ordered By: Rafiq Bahena on 11-21-2021 RBC Auto (Urine sed) [#/Area] 0-1 [HPF] 0-4 [facility] Automated leukocytes count i n urine sediment (number/area)Ordered By: Rafiq Bahena on 11-21-2021 WBC Auto (Urine sed) [#/Area] 3-4 [HPF] 0-4 [facility] Barbiturates [Presence] in U rineOrdered By: Rafiq Bahena on 11-21-2021 Barbiturates Ql (U) Negative Negative [facility] Basophils Auto (Bld) [#/Vol] Ordered By: Rafiq Bahena on 11-21-2021 Basophils (Bld) [#/Vol] 0.0 10*3/uL 0.0-0.2 [facility] Basophils/100 WBC Auto (Bld) Ordered By: Rafiq Bahena on 11-21-2021 Basophils/100 WBC (Bld) 0.8 % . [facility] Benzodiazepines [Presence] i n UrineOrdered By: Rafiq Bahena on 11-21-2021 Benzodiazepines Ql (U) Negative Negative [facility] Bilirubin Test strip Ql (U)O rdered By: Rafiq Bahena on 11-21-2021 Bilirubin Ql (U) Negative Negative [facility] Blood hemoglobin measurement (mass/volume)Ordered By: Rafiq Bahena on 11-21-2021 Hemoglobin (Bld) [Mass/Vol] 11.6 g/dL 11.8-15.4 [facility] Blood leukocytes automated c ount (number/volume)Ordered By: Rafiq Bahena on 11-21-2021 WBC (Bld) [#/Vol] 5.3 10*3/uL 4.5-11.0 [facility] Body fluid albumin measureme nt (mass/volume)Ordered By: Rafiq Bahena on 11-21-2021 Albumin (Body fld) [Mass/Vol] 3.4 g/dL 3.2-5.5 [facility] COVID CepheidOrdered By: Dagoberto Rashid on 11-21-2021 SARS-CoV-2 (COVID-19) Ab IA Ql Negative Negative [facility] Comment on above: This is a duplicate Cepheid Xpert Xpress CoV-2/Flu/RSV Plus RNA by RT-PCR result to be used for statistical tracking purpose only. SARS-CoV-2 (COVID-19) RNA SIOBHAN+probe Ql (Unsp spec) [facility] COVID-19 Positive/NegativeOr dered By: Rafiq Bahena on 11-21-2021 SARS-CoV-2 (COVID-19) N gene SIOBHAN+probe Ql (Resp) Indeterminate Negative [facility] Comment on above: Testing for SARS-CoV -2 by RT-PCRThis test was developed and its performance characteristics determined by [employer] and validated at the [facility]. This test has not been FDA cleared or approved. This test has been authorized by FDA under an Emergency Use Authorization (EUA). This test has been validated in accordance with the FDA's Guidance Document (Policy for Diagnostics Testing in Laboratories Certified to Perform High Complexity Testing under CLIA prior to Emergency Use Authorization for Coronavirus Disease-2019 during the Public Health Emergency) issued on May 14, 2019. This test is only authorized for the duration of time the declaration that circumstances exist justifying the authorization of the emergency use of in vitro diagnostic tests for detection of SARS-CoV-2 virus and/or diagnosis of COVID-19 infection under section 564(b)(1) of the Act, 21 U.S.C. 360bbb-3(b)(1), unless the authorization is terminated or revoked sooner. COVID-19 SOFIAOrdered By: Vishnu Bahena on 11-21-2021 SARS-CoV+SARS-CoV-2 (COVID-19) Ag IA.rapid Ql (Resp) Negative Negative [facility] Comment on above: This is a duplicate Sissy SARS Antigen (WALKER) result to be used for statistical tracking purpose only. Cannabinoids [Presence] in U rine by Screen methodOrdered By: Rafiq Bahena on 11-21-2021 Cannabinoids Screen Ql (U) Negative Negative [facility] Comment on above: These are unconfirme d results and should not be used for legal purposes. Drug Cut-Off Concentration: AMPH 1000 ng/mL RONALD 200 ng/mL CARMELA 200 ng/mL COCM 300 ng/mL OP 300 ng/mL PCP 25 ng/mL THC 20 ng/mL Color Auto (U)Ordered By: Vishnu Bahena on 11-21-2021 Color (U) Yellow Yellow [facility] Creatinine and Glomerular fi ltration rate.predicted panel (S/P/Bld)Ordered By: Rafiq Bahena on 11-21-2021 Creatinine [Mass/Vol] 2.08 mg/dL 0.44-1.[address] [facility] Eosinophils Auto (Bld) [#/Vo l]Ordered By: Rafiq Bahena on 11-21-2021 Eosinophils (Bld) [#/Vol] 0.2 10*3/uL 0.0-0.45 [facility] Eosinophils/100 WBC Auto (Bl d)Ordered By: Rafiq Bahena on 11-21-2021 Eosinophils/100 WBC (Bld) 3.7 % . [facility] Erythrocyte distribution wid th Auto (RBC) [Ratio]Ordered By: Rafiq Bahena on 11-21-2021 Erythrocyte distribution width (RBC) [Ratio] 20.4 % 11.9-15.3 [facility] Estimated glomerular filtrat ion rate (GFR) non- AmericanOrdered By: Rafiq Bahena on 11-21-2021 GFR/1.73 sq M.predicted among non-blacks MDRD (S/P/Bld) [Vol rate/Area] 23 mL/Min [facility] Globulin Calc (S) [Mass/Vol] Ordered By: Rafiq Bahena on 11-21-2021 Globulin (S) [Mass/Vol] 2.1 g/dL [facility] Glucose Glucometer (BldC) [M ass/Vol]Ordered By: Rafiq Bahena on 11-21-2021 Glucose [Mass/Vol] 134 mg/dL [facility] Comment on above: Random Glucose Refer ence Range is dependent on time and content of last meal. Glucose of more than 200 mg/dL in a nonstressed, ambulatory subject supports the diagnosis of Diabetes Mellitus. Hematocrit Auto (Bld) [Volum e fraction]Ordered By: Rafiq Bahena on 11-21-2021 Hematocrit (Bld) [Volume fraction] 35.6 % 34.0-46.4 [facility] Ketones Auto test strip (U) [Mass/Vol]Ordered By: Rafiq Bahena on 11-21-2021 Ketones (U) [Mass/Vol] Negative Negative Fi [facility] Laboratory - Chemistry and C hemistry - challengeOrdered By: Rafiq Bahena on 11-21-2021 CO2 [Moles/Vol] 23.8 mmol/L 23.0-27.0 [facility] HCO3 (Bld) [Moles/Vol] 22.6 mmol/L 23.0-29.0 F [facility] Laboratory - Drug toxicology Ordered By: Rafiq Bahena on 11-21-2021 Opiates Ql (U) Negative Negative [facility] Laboratory - Hematology and Cell countsOrdered By: Rafiq Bahena on 11-21-2021 Nucleated RBC/100 WBC (Bld) [Ratio] 0.0 % 0-0.5 [facility] Laboratory - UrinalysisOrder ed By: Rafiq Bahena on 11-21-2021 Hyaline casts LM Ql (Urine sed) 0-8 [LPF] 0-8 [facility] Lymphocytes Auto (Bld) [#/Vo l]Ordered By: Rafiq Bahena on 11-21-2021 Lymphocytes (Bld) [#/Vol] 1.1 10*3/uL 1.00-4.8 [facility] Lymphocytes/100 WBC Auto (Bl d)Ordered By: Rafiq Bahena on 11-21-2021 Lymphocytes/100 WBC (Bld) 20.4 % . [facility] MCH Auto (RBC) [Entitic mass ]Ordered By: Rafiq Bahena on 11-21-2021 MCH (RBC) [Entitic mass] 26.9 pg 24.7-34.3 [facility] MCHC Auto (RBC) [Mass/Vol]Or dered By: Rafiq Bahena on 11-21-2021 MCHC (RBC) [Mass/Vol] 32.6 g/dL 32.0-35.0 [facility] MCV Auto (RBC) [Entitic vol] Ordered By: Rafiq Bahena on 11-21-2021 MCV (RBC) [Entitic vol] 82.5 fL 80-100 [facility] Monocyte %Ordered By: Rafiq Bahena on 11-21-2021 Monocyte % 17 umol/L 11-35 [facility] Monocytes Auto (Bld) [#/Vol] Ordered By: Rafiq Bahena on 11-21-2021 Monocytes (Bld) [#/Vol] 0.5 10*3/uL 0.0-0.8 [facility] Monocytes/100 WBC Auto (Bld) Ordered By: Rafiq Bahena on 11-21-2021 Monocytes/100 WBC (Bld) 9.9 % . [facility] Neutrophils Auto (Bld) [#/Vo l]Ordered By: Rafiq Bahena on 11-21-2021 Neutrophils (Bld) [#/Vol] 3.5 10*3/uL 1.8-7.7 [facility] Neutrophils/100 WBC Auto (Bl d)Ordered By: Rafiq Bahena on 11-21-2021 Neutrophils/100 WBC (Bld) 65.2 % . [facility] Nitrite Test strip Ql (U)Ord ered By: Rafiq Bahena on 11-21-2021 Nitrite Ql (U) Positive Negative [facility] No Panel InformationOrdered By: Ashleigh Rashid on 11-21-2021 Vitamin B12 Level > 7500 pg/mL 180-914 [facility] No Panel InformationOrdered By: Rafiq Bahena on 11-21-2021 Arterial Blood Base Excess -1.9 mmol/L -3.0-3.0 [facility] Arterial Blood Oxygen Content 7.1 mmol/L 6.6-9.7 [facility] Arterial Blood Oxygen Saturation 95.9 % 95.0-100.0 [facility] Arterial Blood Partial Pressure CO2 37.8 mm[Hg] 35.0-45.0 [facility] Arterial Blood Partial Pressure O2 82.7 mm[Hg] 80.0-100.0 [facility] Arterial Blood pH 7.40 7.35-7.45 [facility] Blood Gas Critical Value See comment [facility] Comment on above: Critical Value sargent d on: 11/21/2021 at 06:17 Blood Gas Sample Site Left radial [facility] FiO2 21 % [facility] Estimated GFR () 28 mL/Min [facility] Comment on above: GFR estimated refere nce range: According to KDOQI guidelines, <60 ml/min/1.73m2 is sufficient to diagnose a patient with chronic kidney disease. Pharmacy Creatinine Clearance (Chem 22.98 [facility] Bedside Glucose Comment Glu2: cleaned meter [facility] Phencyclidine Screen Ql (U)O rdered By: Rafiq Bahena on 11-21-2021 Phencyclidine Ql (U) Negative Negative [facility] Platelet mean volume Auto (B ld) [Entitic vol]Ordered By: Rafiq Bahena on 11-21-2021 Platelet mean volume (Bld) [Entitic vol] 9.6 fL 6.3-10.7 [facility] Platelets Auto (Bld) [#/Vol] Ordered By: Rafiq Bahena on 11-21-2021 Platelets (Bld) [#/Vol] 140 10*3/uL 150-450 [facility] Protein Auto test strip (U) [Mass/Vol]Ordered By: Rafiq Bahena on 11-21-2021 Protein (U) [Mass/Vol] Negative Negative Fi [facility] Protein [Mass/volume] in Ser um or PlasmaOrdered By: Rafiq Bahena on 11-21-2021 Protein [Mass/Vol] 5.5 g/dL 6.1-7.9 [facility] RBC Auto (Bld) [#/Vol]Ordere d By: Rafiq Bahena on 11-21-2021 RBC (Bld) [#/Vol] 4.31 10*6/uL 3.60-5.00 [facility] Serum or plasma alanine zapata otransferase measurement without P-5'-P (enzymatic activiOrdered By: Rafiq Bahena on 11-21-2021 ALT No additional P-5'-P [Catalytic activity/Vol] 17 U/L 10-60 [facility] Serum or plasma albumin/glob ulin mass ratioOrdered By: Rafiq Bahena on 11-21-2021 Albumin/Globulin [Mass ratio] 1.6 {ratio} [facility] Serum or plasma alkaline brandy sphatase measurement (enzymatic activity/volume)Ordered By: Rafiq Bahena on 11-21-2021 ALP [Catalytic activity/Vol] 74 U/L 32-92 [facility] Serum or plasma anion gap de terminationOrdered By: Rafiq Bahena on 11-21-2021 Anion gap [Moles/Vol] 14.6 mmol/L 6.0-15.0 [facility] Serum or plasma aspartate am inotransferase measurement (enzymatic activity/volume)Ordered By: Rafiq Bahena on 11-21-2021 AST [Catalytic activity/Vol] 19 U/L 10-42 [facility] Serum or plasma calcium lay urement (mass/volume)Ordered By: Rafiq Bahena on 11-21-2021 Calcium [Mass/Vol] 9.1 mg/dL 8.2-10.2 [facility] Serum or plasma chloride rosaline surement (moles/volume)Ordered By: Rafiq Bahena on 11-21-2021 Chloride [Moles/Vol] 107 mmol/L 95-114 [facility] Serum or plasma ethanol lay urement (mass/volume)Ordered By: Rafiq Bahena on 11-21-2021 Ethanol [Mass/Vol] mg/dL [facility] Ethanol [Mass/Vol] TNP [facility] Comment on above: Test not performed Serum or plasma glucose lay urement (mass/volume)Ordered By: Rafiq Bahena on 11-21-2021 Glucose [Mass/Vol] 124 mg/dL 70-100 [facility] Comment on above: ADA recommended refe rence rangeRandom Glucose Reference Range is dependent on time and content of last meal. Glucose of more than 200 mg/dL in a nonstressed, ambulatory subject supports the diagnosis of Diabetes Mellitus. Serum or plasma potassium me asurement (moles/volume)Ordered By: Rafiq Bahena on 11-21-2021 Potassium [Moles/Vol] 3.1 mmol/L 3.5-5.[address] [facility] Serum or plasma sodium measu rement (moles/volume)Ordered By: Rafiq Bahena on 11-21-2021 Sodium [Moles/Vol] 142 mmol/L 136-146 [facility] Serum or plasma total biliru bin measurement (mass/volume)Ordered By: Rafiq Bahena on 11-21-2021 Bilirubin [Mass/Vol] 0.3 mg/dL 0.3-1.2 [facility] Serum or plasma total carbon dioxide measurement (moles/volume)Ordered By: Rafiq Bahena on 11-21-2021 CO2 [Moles/Vol] 23.5 mmol/L 22.0-30.0 [facility] Serum or plasma urea nitroge n measurement (mass/volume)Ordered By: Rafiq Bahena on 11-21-2021 Urea nitrogen [Mass/Vol] 49 mg/dL 9- [facility] Specific gravity Auto test s trip (U) [Rel density]Ordered By: Rafiq Bahena on 11-21-2021 Specific gravity (U) [Rel density] 1.010 1.001-1.030 [facility] Squamous epithelial cells de tection in urine sediment by light microscopyOrdered By: Rafiq Bahena on 11-21-2021 Epithelial cells.squamous LM Ql (Urine sed) 1-2 [HPF] 0-2 [facility] TSH DL <= 0.005 mIU/L QnOrde red By: Rafiq Bahena on 11-21-2021 TSH Qn 2.40 m[IU]/L 0.45-5.33 [facility] Thyroxine (T4) free [Mass/vo lume] in Serum or PlasmaOrdered By: Rafiq Bahena on 11-21-2021 Free T4 [Mass/Vol] 0.68 ng/dL 0.61-1.12 [facility] Troponin I.cardiac [Mass/vol ume] in Serum or Plasma by High sensitivity methodOrdered By: Rafiq Bahena on 11-21-2021 Troponin I.cardiac High sensitivity method [Mass/Vol] 6 pg/mL 0-15 [facility] Urine bacteria detection by automated methodOrdered By: Rafiq Bahena on 11-21-2021 Bacteria Auto Ql (U) 2+ None Seen [facility] Urine clarity by refractomet ry automatedOrdered By: Rafiq Bahena on 11-21-2021 Clarity Refractometry automated (U) Clear Clear [facility] Urine cocaine detectionOrder ed By: Rafiq Bahena on 11-21-2021 Cocaine Ql (U) Negative Negative [facility] Urine glucose measurement by automated test strip (mass/volume)Ordered By: Rafiq Bahena on 11-21-2021 Glucose Auto test strip (U) [Mass/Vol] Normal mg/dL Normal [facility] Urine hemoglobin detection b y automated test stripOrdered By: Rafiq Bahena on 11-21-2021 Hemoglobin Auto test strip Ql (U) Negative Negative [facility] Urine leukocyte esterase det ection by automated test stripOrdered By: Rafiq Bahena on 11-21-2021 Leukocyte esterase Auto test strip Ql (U) 1+ Negative [facility] Urobilinogen Auto test strip (U) [Mass/Vol]Ordered By: Rafiq Bahena on 11-21-2021 Urobilinogen (U) [Mass/Vol] Normal mg/dL Normal [facility] pH Auto test strip (U)Ordere d By: Rafiq Bahena on 11-21-2021 pH (U) 5.5 [pH] 5.0-9.0 [facility] CBC AUTO DIFFon 10-24-2021 BASO # 0.1 103/ul Normal 0.0-0.1 [facility] Comment on above: Performed By: #### C BC #### [facility] [address] [place] [address] Dr. Grzegorz Wang Basophils/100 WBC (Bld) 0.6 % Normal 0.2-2.0 [facility] Comment on above: Performed By: #### C BC #### [facility] [address] [place] [address] Dr. Grzegorz Wang EO # 0.4 103/ul Normal 0.0-0.7 [facility] Comment on above: Performed By: #### C BC #### [facility] [address] [place] [address] Dr. Grzegorz Wang Eosinophils/100 WBC (Bld) 5.0 % Normal 0.9-7.0 [facility] Comment on above: Performed By: #### C BC #### [facility] [address] [place] [address] Dr. Grzegorz Wang Erythrocyte distribution width (RBC) [Ratio] 18.6 % Critically high 11.0-15.0 [facility] Comment on above: Performed By: #### C BC #### [facility] [address] [place] [address] Dr. Grzegorz Wang Hematocrit (Bld) [Volume fraction] 35.7 % Critically low 36.0-48.0 [facility] Comment on above: Performed By: #### C BC #### [facility] [address] [place] [address] Dr. Grzegorz Wang Hemoglobin (Bld) [Mass/Vol] 11.2 g/dL Critically low 12.0-16.0 [facility] Comment on above: Performed By: #### C BC #### [facility] [address] [address] [address] Grzegorz Wang IG # 0.04 10e3/ul Critically high 0.00-0.03 [facility] Comment on above: Performed By: #### C BC #### [facility] [address] [place] [address] Dr. Grzegorz Wang IG % 0.5 % Normal 0.0-0.5 [facility] Comment on above: Performed By: #### C BC #### [facility] [address] [place] [address] Dr. Grzegorz Wang LYMPH # 1.9 103/ul Normal 1.2-3.8 [facility] Comment on above: Performed By: #### C BC #### [facility] [address] [place] [address] Dr. Grzegorz Wang Lymphocytes/100 WBC (Bld) 22.2 % Normal 20.5-60.0 [facility] Comment on above: Performed By: #### C BC #### [facility] [address] [place] [address] Dr. Grzegorz Wang MANUAL DIFF REQ NO Normal [facility] Comment on above: Performed By: #### C BC #### [facility] [address] [place] [address] Dr. Grzegorz Wang MCH (RBC) [Entitic mass] 26.4 pg Critically low 26.7-34.0 [facility] Comment on above: Performed By: #### C BC #### [facility] [address] [place] [address] Dr. Grzegorz Wang MCHC (RBC) [Mass/Vol] 31.4 g/dL Normal 29.9-35.2 [facility] Comment on above: Performed By: #### C BC #### [facility] [address] [place] [address] Dr. Grzegorz Wang MCV (RBC) [Entitic vol] 84.2 fL Normal 81.0-99.0 [facility] Comment on above: Performed By: #### C BC #### [facility] [address] [place] [address] Dr. Grzegorz Wang MONO # 0.8 103/ul Normal 0.3-0.8 [facility] Comment on above: Performed By: #### C BC #### [facility] [address] [place] [address] Dr. Grzegorz Wang Monocytes/100 WBC (Bld) 10.0 % Normal 1.7-12.0 [facility] Comment on above: Performed By: #### C BC #### [facility] [address] [place] [address] Dr. Grzegorz Wang NEUT # 5.2 103/ul Normal 1.4-6.5 [facility] Comment on above: Performed By: #### C BC #### [facility] [address] [place] [address] Dr. Grzegorz Wang Neutrophils/100 WBC (Bld) 61.7 % Normal 43.0-75.0 [facility] Comment on above: Performed By: #### C BC #### [facility] [address] [place] [address] Dr. Grzegorz Wang Platelet mean volume (Bld) [Entitic vol] 11.8 fL Normal 9.5-13.5 [facility] Comment on above: Performed By: #### C BC #### [facility] [address] [place] [address] Dr. Grzegorz Wang PLT 219 103/ul Normal 150-450 [facility] Comment on above: Performed By: #### C BC #### [facility] [address] [place] [address] Dr. Grzegorz Wang RBC 4.24 106/ul Normal 4.20-5.40 [facility] Comment on above: Performed By: #### C BC #### [facility] [address] [place] [address] Dr. Grzegorz Wang WBC 8.4 103/ul Normal 4.0-11.0 [facility] Comment on above: Performed By: #### C BC #### [facility] [address] [place] [address] Dr. Grzegorz Wang PRBC LEUKOREDUCEDon 10-23-19 ABO and Rh group Nom (Bld) Cross Match Result Compatible Unit Blood Type O Pos Unit Number [id number] Status Information Transfused Product ID Red Blood Cells Product Code [id number] Cross Match Result Compatible Blood Bank Notes CALLED SARATH GLYNN RN ON [employer] 10/17/21 @ 0850 Unit Blood Type O Neg Unit Number [id number] Status Information Transfused Product ID Red Blood Cells Product Code [id number] Normal [facility] Comment on above: Performed By: #### C BC #### [facility] [address] [place] [address] Dr. Grzegorz Wang ABO and Rh group Nom (Bld) Cross Match Result Compatible Unit Blood Type O Neg Unit Number [id number] Status Information Transfused Product ID Red Blood Cells Product Code [id number] Cross Match Result Compatible Unit Blood Type O Neg Unit Number [id number] Status Information Transfused Product ID Red Blood Cells Product Code [id number] Normal [facility] Comment on above: Performed By: #### C BC #### [facility] [address] [place] [address] Dr. Grzegorz Wang CBC AUTO DIFFon 10-18-2021 BASO # 0.0 103/ul Normal 0.0-0.1 [facility] Comment on above: Performed By: #### C BC #### [facility] [address] [place] [address] Dr. Grzegorz Wang Basophils/100 WBC (Bld) 0.7 % Normal 0.2-2.0 [facility] Comment on above: Performed By: #### C BC #### [facility] [address] [place] [address] Dr. Grzegorz Wang EO # 0.2 103/ul Normal 0.0-0.7 [facility] Comment on above: Performed By: #### C BC #### [facility] [address] [address] [address] Grzegorz Wang Eosinophils/100 WBC (Bld) 2.9 % Normal 0.9-7.0 [facility] Comment on above: Performed By: #### C BC #### [facility] [address] [place] [address] Dr. Grzegorz Wang Erythrocyte distribution width (RBC) [Ratio] 17.8 % Critically high 11.0-15.0 [facility] Comment on above: Performed By: #### C BC #### [facility] [address] [place] [address] Dr. Grzegorz Wang Hematocrit (Bld) [Volume fraction] 30.1 % Critically low 36.0-48.0 [facility] Comment on above: Performed By: #### C BC #### [facility] [address] [place] [address] Dr. Grzegorz Wang Hemoglobin (Bld) [Mass/Vol] 9.6 g/dL Critically low 12.0-16.0 [facility] Comment on above: Performed By: #### C BC #### [facility] [address] [place] [address] Dr. Grzegorz Wang IG # 0.08 10e3/ul Critically high 0.00-0.03 [facility] Comment on above: Performed By: #### C BC #### [facility] [address] [place] [address] Dr. Grzegorz Wang IG % 1.3 % Critically high 0.0-0.5 [facility] Comment on above: Performed By: #### C BC #### [facility] [address] [place] [address] Dr. Grzegorz Wang LYMPH # 1.8 103/ul Normal 1.2-3.8 [facility] Comment on above: Performed By: #### C BC #### [facility] [address] [place] [address] Dr. Grzegorz Wang Lymphocytes/100 WBC (Bld) 29.4 % Normal 20.5-60.0 [facility] Comment on above: Performed By: #### C BC #### [facility] [address] [place] [address] Dr. Grzegorz Wang MANUAL DIFF REQ NO Normal [facility] Comment on above: Performed By: #### C BC #### [facility] [address] [place] [address] Dr. Grzegorz Wang MCH (RBC) [Entitic mass] 25.9 pg Critically low 26.7-34.0 [facility] Comment on above: Performed By: #### C BC #### [facility] [address] [place] [address] Dr. Grzegorz Wang MCHC (RBC) [Mass/Vol] 31.9 g/dL Normal 29.9-35.2 [facility] Comment on above: Performed By: #### C BC #### [facility] [address] [place] [address] Dr. Grzegorz Wang MCV (RBC) [Entitic vol] 81.4 fL Normal 81.0-99.0 [facility] Comment on above: Performed By: #### C BC #### [facility] [address] [place] [address] Dr. Grzegorz Wang MONO # 0.7 103/ul Normal 0.3-0.8 [facility] Comment on above: Performed By: #### C BC #### [facility] [address] [place] [address] Dr. Grzegorz Wang Monocytes/100 WBC (Bld) 11.9 % Normal 1.7-12.0 [facility] Comment on above: Performed By: #### C BC #### [facility] [address] [place] [address] Dr. Grzegorz Wang NEUT # 3.3 103/ul Normal 1.4-6.5 [facility] Comment on above: Performed By: #### C BC #### [facility] [address] [place] [address] Dr. Grzegorz Wang Neutrophils/100 WBC (Bld) 53.8 % Normal 43.0-75.0 [facility] Comment on above: Performed By: #### C BC #### [facility] [address] [place] [address] Dr. Grzegorz Wang Platelet mean volume (Bld) [Entitic vol] 10.5 fL Normal 9.5-13.5 [facility] Comment on above: Performed By: #### C BC #### [facility] [address] [place] [address] Dr. Grzegorz Wang PLT 206 103/ul Normal 150-450 [facility] Comment on above: Performed By: #### C BC #### [facility] [address] [address] [address] Grzegorz Wang RBC 3.70 106/ul Critically low 4.20-5.40 [facility] Comment on above: Performed By: #### C BC #### [facility] [address] [place] [address] Dr. Grzegorz Wang WBC 6.1 103/ul Normal 4.0-11.0 [facility] Comment on above: Performed By: #### C BC #### [facility] [address] [place] [address] Dr. Grzegorz Wang PROF CHEM 8 (BAS METB)on Anion gap [Moles/Vol] 9.6 mmol/L Normal [facility] Comment on above: Performed By: #### C BC #### [facility] [address] [place] [address] Dr. Grzegorz Wang Calcium [Mass/Vol] 8.5 mg/dL Normal 8.5-10.1 [facility] Comment on above: Performed By: #### C BC #### [facility] [address] [place] [address] Dr. Grzegorz Wang Chloride [Moles/Vol] 113 mmol/L Critically high 98-107 [facility] Comment on above: Performed By: #### C BC #### [facility] [address] [place] [address] Dr. Grzegorz Wang CO2 [Moles/Vol] 26.6 mmol/L Normal 21.0-32.0 [facility] Comment on above: Performed By: #### C BC #### [facility] [address] [place] [address] Dr. Grzegorz Wang Creatinine [Mass/Vol] 0.94 mg/dL Normal 0.55-1.02 [facility] Comment on above: Performed By: #### C BC #### [facility] [address] [place] [address] Dr. Grzegorz Wang EGFR-AF [place]ER >60 Normal >=60 [facility] Comment on above: Performed By: #### C BC #### [facility] [address] [place] [address] Dr. Grzegorz Wang EGFR-NON AF [place]ER 58 mL/min/1.73m2 Critically low >=60 [facility] Comment on above: Performed By: #### C BC #### [facility] [address] [place] [address] Dr. Grzegorz Wang Glucose [Mass/Vol] 97 mg/dL Normal 74-106 [facility] Comment on above: Performed By: #### C BC #### [facility] [address] [place] [address] Dr. Grzegorz Wang Potassium [Moles/Vol] 3.2 mmol/L Critically low 3.5-5.1 [facility] Comment on above: Performed By: #### C BC #### [facility] [address] [place] [address] Dr. Grzegorz Wang Sodium [Moles/Vol] 146 mmol/L Critically high 136-145 [facility] Comment on above: Performed By: #### C BC #### [facility] [address] [place] [address] Dr. Grzegorz Wang Urea nitrogen [Mass/Vol] 38.0 mg/dL Critically high 7.0-18.0 [facility] Comment on above: Performed By: #### C BC #### [facility] [address] [place] [address] Dr. Grzegorz Wang Urea nitrogen/Creatinine [Mass ratio] 40.4 mg/mg Normal [facility] Comment on above: Performed By: #### C BC #### [facility] [address] [place] [address] Dr. Grzegorz Wang CBC AUTO DIFFon 10-17-2021 BASO # 0.1 103/ul Normal 0.0-0.1 [facility] Comment on above: Performed By: #### C BC #### [facility] [address] [place] [address] Dr. Grzegorz Wang Basophils/100 WBC (Bld) 0.9 % Normal 0.2-2.0 [facility] Comment on above: Performed By: #### C BC #### [facility] [address] [place] [address] Dr. Grzegorz Wang EO # 0.2 103/ul Normal 0.0-0.7 [facility] Comment on above: Performed By: #### C BC #### [facility] [address] [place] [address] Dr. Grzegorz Wang Eosinophils/100 WBC (Bld) 3.1 % Normal 0.9-7.0 [facility] Comment on above: Performed By: #### C BC #### [facility] [address] [place] [address] Dr. Grzegorz Wang Erythrocyte distribution width (RBC) [Ratio] 17.6 % Critically high 11.0-15.0 [facility] Comment on above: Performed By: #### C BC #### [facility] [address] [place] [address] Dr. Grzegorz Wang Hematocrit (Bld) [Volume fraction] 35.7 % Critically low 36.0-48.0 [facility] Comment on above: Performed By: #### C BC #### [facility] [address] [place] [address] Dr. Grzegorz Wang Hemoglobin (Bld) [Mass/Vol] 11.5 g/dL Critically low 12.0-16.0 [facility] Comment on above: Result Comment: rcvd . blood Performed By: #### C BC #### [facility] [address] [place] [address] Dr. Grzegorz Wang IG # 0.18 10e3/ul Critically high 0.00-0.03 [facility] Comment on above: Performed By: #### C BC #### [facility] [address] [place] [address] Dr. Grzegorz Wang IG % 2.6 % Critically high 0.0-0.5 [facility] Comment on above: Performed By: #### C BC #### [facility] [address] [place] [address] Dr. Grzegorz Wang LYMPH # 1.5 103/ul Normal 1.2-3.8 [facility] Comment on above: Performed By: #### C BC #### [facility] [address] [place] [address] Dr. Grzegorz Wang Lymphocytes/100 WBC (Bld) 21.4 % Normal 20.5-60.0 [facility] Comment on above: Performed By: #### C BC #### [facility] [address] [place] [address] Dr. Grzegorz Wang MANUAL DIFF REQ NO Normal [facility] Comment on above: Performed By: #### C BC #### [facility] [address] [place] [address] Dr. Grzegorz Wang MCH (RBC) [Entitic mass] 26.0 pg Critically low 26.7-34.0 [facility] Comment on above: Performed By: #### C BC #### [facility] [address] [place] [address] Dr. Grzegorz Wang MCHC (RBC) [Mass/Vol] 32.2 g/dL Normal 29.9-35.2 [facility] Comment on above: Performed By: #### C BC #### [facility] [address] [place] [address] Dr. Grzegorz Wang MCV (RBC) [Entitic vol] 80.6 fL Critically low 81.0-99. 0 [facility] Comment on above: Performed By: #### C BC #### [facility] [address] [place] [address] Dr. Grzegorz Wang MONO # 0.7 103/ul Normal 0.3-0.8 [facility] Comment on above: Performed By: #### C BC #### [facility] [address] [place] [address] Dr. Grzegorz Wang Monocytes/100 WBC (Bld) 10.8 % Normal 1.7-12.0 [facility] Comment on above: Performed By: #### C BC #### [facility] [address] [place] [address] Dr. Grzegorz Wang NEUT # 4.2 103/ul Normal 1.4-6.5 [facility] Comment on above: Performed By: #### C BC #### [facility] [address] [place] [address] Dr. Grzegorz Wang Neutrophils/100 WBC (Bld) 61.2 % Normal 43.0-75.0 [facility] Comment on above: Performed By: #### C BC #### [facility] [address] [place] [address] Dr. Grzegorz Wang Platelet mean volume (Bld) [Entitic vol] 9.9 fL Normal 9.5-13.5 [facility] Comment on above: Performed By: #### C BC #### [facility] [address] [place] [address] Dr. Grzegorz Wang PLT 228 103/ul Normal 150-450 [facility] Comment on above: Performed By: #### C BC #### [facility] [address] [place] [address] Dr. Grzegorz Wang RBC 4.43 106/ul Normal 4.20-5.40 [facility] Comment on above: Performed By: #### C BC #### [facility] [address] [place] [address] Dr. Grzegorz Wang WBC 6.9 103/ul Normal 4.0-11.0 [facility] Comment on above: Performed By: #### C BC #### [facility] [address] [place] [address] Dr. Grzegorz Wang BASO # 0.0 103/ul Normal 0.0-0.1 [facility] Comment on above: Performed By: #### C BC #### [facility] [address] [place] [address] Dr. Grzegorz Wang Basophils/100 WBC (Bld) 0.8 % Normal 0.2-2.0 [facility] Comment on above: Performed By: #### C BC #### [facility] [address] [address] [address] Grzegorz Wang EO # 0.1 103/ul Normal 0.0-0.7 [facility] Comment on above: Performed By: #### C BC #### [facility] [address] [address] [address] Grzegorz Wang Eosinophils/100 WBC (Bld) 2.4 % Normal 0.9-7.0 [facility] Comment on above: Performed By: #### C BC #### [facility] [address] [place] [address] Dr. Grzegorz Wang Erythrocyte distribution width (RBC) [Ratio] 16.8 % Critically high 11.0-15.0 [facility] Comment on above: Performed By: #### C BC #### [facility] [address] [place] [address] Dr. Grzegorz Wang Hematocrit (Bld) [Volume fraction] 23.2 % Critically low 36.0-48.0 [facility] Comment on above: Performed By: #### C BC #### [facility] [address] [place] [address] Dr. Grzegorz Wang Hemoglobin (Bld) [Mass/Vol] 7.4 g/dL Critically low 12.0-16.0 [facility] Comment on above: Performed By: #### C BC #### [facility] [address] [address] [address] Grzegorz Wang IG # 0.05 10e3/ul Critically high 0.00-0.03 [facility] Comment on above: Performed By: #### C BC #### [facility] [address] [address] [address] Grzegorz Wang IG % 1.0 % Critically high 0.0-0.5 [facility] Comment on above: Performed By: #### C BC #### [facility] [address] [place] [address] Dr. Grzegorz Wang LYMPH # 1.4 103/ul Normal 1.2-3.8 [facility] Comment on above: Performed By: #### C BC #### [facility] [address] [place] [address] Dr. Grzegorz Wang Lymphocytes/100 WBC (Bld) 27.8 % Normal 20.5-60.0 [facility] Comment on above: Performed By: #### C BC #### [facility] [address] [place] [address] Dr. Grzegorz Wang MANUAL DIFF REQ NO Normal [facility] Comment on above: Performed By: #### C BC #### [facility] [address] [place] [address] Dr. Grzegorz Wang MCH (RBC) [Entitic mass] 25.6 pg Critically low 26.7-34.0 [facility] Comment on above: Performed By: #### C BC #### [facility] [address] [place] [address] Dr. Grzegorz Wang MCHC (RBC) [Mass/Vol] 31.9 g/dL Normal 29.9-35.2 [facility] Comment on above: Performed By: #### C BC #### [facility] [address] [place] [address] Dr. Grzegorz Wang MCV (RBC) [Entitic vol] 80.3 fL Critically low 81.0-99. 0 [facility] Comment on above: Performed By: #### C BC #### [facility] [address] [place] [address] Dr. Grzegorz Wang MONO # 0.6 103/ul Normal 0.3-0.8 [facility] Comment on above: Performed By: #### C BC #### [facility] [address] [place] [address] Dr. Grzegorz Wang Monocytes/100 WBC (Bld) 11.6 % Normal 1.7-12.0 [facility] Comment on above: Performed By: #### C BC #### [facility] [address] [place] [address] Dr. Grzegorz Wang NEUT # 2.8 103/ul Normal 1.4-6.5 [facility] Comment on above: Performed By: #### C BC #### [facility] [address] [address] [address] Grzegorz Wang Neutrophils/100 WBC (Bld) 56.4 % Normal 43.0-75.0 [facility] Comment on above: Performed By: #### C BC #### [facility] [address] [address] [address] Grzegorz Wang Platelet mean volume (Bld) [Entitic vol] 10.0 fL Normal 9.5-13.5 [facility] Comment on above: Performed By: #### C BC #### [facility] [address] [address] [address] Grzegorz Wang PLT 193 103/ul Normal 150-450 [facility] Comment on above: Performed By: #### C BC #### [facility] [address] [place] [address] Dr. Grzegorz Wang RBC 2.89 106/ul Critically low 4.20-5.40 [facility] Comment on above: Performed By: #### C BC #### [facility] [address] [address] [address] Grzegorz Wang WBC 4.9 103/ul Normal 4.0-11.0 [facility] Comment on above: Performed By: #### C BC #### [facility] [address] [place] [address] Dr. Grzegorz Wang PROF CHEM 8 (BAS METB)on Anion gap [Moles/Vol] 11.4 mmol/L Normal [facility] Comment on above: Performed By: #### A MY, LIPA #### [facility] [address] [place] [address] Dr. Grzegorz Wang Calcium [Mass/Vol] 8.3 mg/dL Critically low 8.5-10.1 [facility] Comment on above: Performed By: #### A MY, LIPA #### [facility] [address] [place] [address] Dr. Grzegorz Wang Chloride [Moles/Vol] 116 mmol/L Critically high 98-107 [facility] Comment on above: Performed By: #### A MY, LIPA #### [facility] [address] [address] [address] Grzegorz Wang CO2 [Moles/Vol] 21.1 mmol/L Normal 21.0-32.0 [facility] Comment on above: Performed By: #### A MY, LIPA #### [facility] [address] [address] [address] Grzegorz Wang Creatinine [Mass/Vol] 1.07 mg/dL Critically high 0.55-1.02 [facility] Comment on above: Performed By: #### A MY, LIPA #### [facility] [address] [address] [address] Grzegorz Wang EGFR-AF [place] >60 Normal >=60 [facility] Comment on above: Performed By: #### A MY, LIPA #### [facility] [address] [address] [address] Grzegorz Wang EGFR-NON AF [place] 50 mL/min/1.73m2 Critically low >=60 [facility] Comment on above: Performed By: #### A MY, LIPA #### [facility] [address] [address] [address] Grzegorz Wang Glucose [Mass/Vol] 90 mg/dL Normal 74-106 [facility] Comment on above: Performed By: #### A MY, LIPA #### [facility] [address] [address] [address] Grzegorz Wang Potassium [Moles/Vol] 3.5 mmol/L Normal 3.5-5.1 [facility] Comment on above: Performed By: #### A MY, LIPA #### [facility] [address] [address] [address] Grzegorz Wang Sodium [Moles/Vol] 145 mmol/L Normal 136-145 [facility] Comment on above: Performed By: #### A MY, LIPA #### [facility] [address] [address] [address] Grzegorz Wang Urea nitrogen [Mass/Vol] 59.0 mg/dL Critically high 7.0-18.0 [facility] Comment on above: Performed By: #### A BRAYDEN LIPA #### [facility] [address] [place] [address] Dr. Grzegorz Wang Urea nitrogen/Creatinine [Mass ratio] 55.1 mg/mg Normal [facility] Comment on above: Performed By: #### A BRAYDEN LIPA #### [facility] [address] [place] [address] Dr. Grzegorz Wang AMYLASEon 10-16-2021 Amylase [Catalytic activity/Vol] 41 U/L Normal 25-115 [facility] Comment on above: Performed By: #### A BRAYDEN LIPA #### [facility] [address] [place] [address] Dr. Grzegorz Wang CBC AUTO DIFFon 10-16-2021 BASO # 0.1 103/ul Normal 0.0-0.1 [facility] Comment on above: Performed By: #### A BRAYDEN LIPA #### [facility] [address] [place] [address] Dr. Grzegorz Wang Basophils/100 WBC (Bld) 0.7 % Normal 0.2-2.0 [facility] Comment on above: Performed By: #### A BRAYDEN LIPA #### [facility] [address] [place] [address] Dr. Grzegorz Wang EO # 0.2 103/ul Normal 0.0-0.7 [facility] Comment on above: Performed By: #### A BRAYDEN LIPA #### [facility] [address] [place] [address] Dr. Grzegorz Wang Eosinophils/100 WBC (Bld) 2.4 % Normal 0.9-7.0 [facility] Comment on above: Performed By: #### A BRAYDEN LIPA #### [facility] [address] [place] [address] Dr. Grzegorz Wang Erythrocyte distribution width (RBC) [Ratio] 17.1 % Critically high 11.0-15.0 [facility] Comment on above: Performed By: #### A BRAYDEN LIPA #### [facility] [address] [place] [address] Dr. Grzegorz Wang Hematocrit (Bld) [Volume fraction] 26.0 % Critically low 36.0-48.0 [facility] Comment on above: Performed By: #### A MY, LIPA #### [facility] [address] [place] [address] Dr. Grzegorz Wang Hemoglobin (Bld) [Mass/Vol] 8.4 g/dL Critically low 12.0-16.0 [facility] Comment on above: Performed By: #### A MY, LIPA #### [facility] [address] [place] [address] Dr. Grzegorz Wang IG # 0.03 10e3/ul Normal 0.00-0.03 [facility] Comment on above: Performed By: #### A BRAYDEN, LIPA #### [facility] [address] [place] [address] Dr. Grzegorz Wang IG % 0.4 % Normal 0.0-0.5 [facility] Comment on above: Performed By: #### A BRAYDEN, LIPA #### [facility] [address] [place] [address] Dr. Grzegorz Wang LYMPH # 1.9 103/ul Normal 1.2-3.8 [facility] Comment on above: Performed By: #### A BRAYDEN, LIPA #### [facility] [address] [place] [address] Dr. Grzegorz Wang Lymphocytes/100 WBC (Bld) 27.3 % Normal 20.5-60.0 [facility] Comment on above: Performed By: #### A BRAYDEN, LIPA #### [facility] [address] [place] [address] Dr. Grzegorz Wang MANUAL DIFF REQ NO Normal [facility] Comment on above: Performed By: #### A BRAYDEN, LIPA #### [facility] [address] [place] [address] Dr. Grzegorz Wang MCH (RBC) [Entitic mass] 26.0 pg Critically low 26.7-34.0 [facility] Comment on above: Performed By: #### A BRAYDEN LIPA #### [facility] [address] [place] [address] Dr. Grzegorz Wang MCHC (RBC) [Mass/Vol] 32.3 g/dL Normal 29.9-35.2 [facility] Comment on above: Performed By: #### A MY, LIPA #### [facility] [address] [place] [address] Dr. Grzegorz Wang MCV (RBC) [Entitic vol] 80.5 fL Critically low 81.0-99. 0 [facility] Comment on above: Performed By: #### A MY, LIPA #### [facility] [address] [place] [address] Dr. Grzegorz Wang MONO # 0.7 103/ul Normal 0.3-0.8 [facility] Comment on above: Performed By: #### A BRAYDEN, LIPA #### [facility] [address] [place] [address] Dr. Grzegorz Wang Monocytes/100 WBC (Bld) 10.5 % Normal 1.7-12.0 [facility] Comment on above: Performed By: #### A BRAYDEN, LIPA #### [facility] [address] [place] [address] Dr. Grzegorz Wang NEUT # 4.1 103/ul Normal 1.4-6.5 [facility] Comment on above: Performed By: #### A BRAYDEN, LIPA #### [facility] [address] [place] [address] Dr. Grzegorz Wang Neutrophils/100 WBC (Bld) 58.7 % Normal 43.0-75.0 [facility] Comment on above: Performed By: #### A BRAYDEN, LIPA #### [facility] [address] [place] [address] Dr. Grzegorz Wang Platelet mean volume (Bld) [Entitic vol] 10.4 fL Normal 9.5-13.5 [facility] Comment on above: Performed By: #### A BRAYDEN, LIPA #### [facility] [address] [place] [address] Dr. Grzegorz Wang PLT 217 103/ul Normal 150-450 [facility] Comment on above: Performed By: #### A MY, LIPA #### [facility] [address] [address] [address] Grzegorz Wang RBC 3.23 106/ul Critically low 4.20-5.40 [facility] Comment on above: Performed By: #### A MY, LIPA #### [facility] [address] [address] [address] Grzegorz Wang WBC 7.1 103/ul Normal 4.0-11.0 [facility] Comment on above: Performed By: #### A MY, LIPA #### [facility] [address] [place] [address] Dr. Grzegorz Wang BASO # 0.0 103/ul Normal 0.0-0.1 [facility] Comment on above: Performed By: #### C BC #### [facility] [address] [place] [address] Dr. Grzegorz Wang Basophils/100 WBC (Bld) 0.5 % Normal 0.2-2.0 [facility] Comment on above: Performed By: #### C BC #### [facility] [address] [place] [address] Dr. Grzegorz Wang EO # 0.1 103/ul Normal 0.0-0.7 [facility] Comment on above: Performed By: #### C BC #### [facility] [address] [place] [address] Dr. Grzegorz Wang Eosinophils/100 WBC (Bld) 0.8 % Critically low 0.9-7.0 [facility] Comment on above: Performed By: #### C BC #### [facility] [address] [place] [address] Dr. Grzegorz Wang Erythrocyte distribution width (RBC) [Ratio] 16.8 % Critically high 11.0-15.0 [facility] Comment on above: Performed By: #### C BC #### [facility] [address] [place] [address] Dr. Grzegorz Wang Hematocrit (Bld) [Volume fraction] 19.5 % Critically low 36.0-48.0 [facility] Comment on above: Performed By: #### C BC #### [facility] [address] [place] [address] Dr. Grzegorz Wang Hemoglobin (Bld) [Mass/Vol] 6.0 g/dL Critically low 12.0-16.0 [facility] Comment on above: Result Comment: repe ated Performed By: #### C BC #### [facility] [address] [place] [address] Dr. Grzegorz Wang IG # 0.05 10e3/ul Critically high 0.00-0.03 [facility] Comment on above: Performed By: #### C BC #### [facility] [address] [place] [address] Dr. Grzegorz Wang IG % 0.6 % Critically high 0.0-0.5 [facility] Comment on above: Performed By: #### C BC #### [facility] [address] [place] [address] Dr. Grzegorz Wang LYMPH # 1.8 103/ul Normal 1.2-3.8 [facility] [facility] Comment on above: Performed By: #### C BC #### [facility] [address] [place] [address] Dr. Grzegorz Wang Lymphocytes/100 WBC (Bld) 21.6 % Normal 20.5-60.0 [facility] Comment on above: Performed By: #### C BC #### [facility] [address] [place] [address] Dr. Grzegorz Wang MANUAL DIFF REQ NO Normal [facility] Comment on above: Performed By: #### C BC #### [facility] [address] [place] [address] Dr. Grzegorz Wang MCH (RBC) [Entitic mass] 23.4 pg Critically low 26.7-34.0 [facility] Comment on above: Performed By: #### C BC #### [facility] [address] [place] [address] Dr. Grzegorz Wang MCHC (RBC) [Mass/Vol] 30.6 g/dL Normal 29.9-35.2 [facility] Comment on above: Performed By: #### C BC #### [facility] [address] [place] [address] Dr. Grzegorz Wang MCV (RBC) [Entitic vol] 76.6 fL Critically low 81.0-99. 0 [facility] Comment on above: Performed By: #### C BC #### [facility] [address] [place] [address] Dr. Grzegorz Wang MONO # 0.6 103/ul Normal 0.3-0.8 [facility] Comment on above: Performed By: #### C BC #### [facility] [address] [place] [address] Dr. Grzegorz Wang Monocytes/100 WBC (Bld) 7.3 % Normal 1.7-12.0 [facility] Comment on above: Performed By: #### C BC #### [facility] [address] [place] [address] Dr. Grzegorz Wang NEUT # 5.9 103/ul Normal 1.4-6.5 [facility] Comment on above: Performed By: #### C BC #### [facility] [address] [place] [address] Dr. Grzegorz Wang Neutrophils/100 WBC (Bld) 69.2 % Normal 43.0-75.0 [facility] Comment on above: Performed By: #### C BC #### [facility] [address] [place] [address] Dr. Grzegorz Wang Platelet mean volume (Bld) [Entitic vol] 10.5 fL Normal 9.5-13.5 [facility] Comment on above: Performed By: #### C BC #### [facility] [address] [place] [address] Dr. Grzegorz Wang PLT 288 103/ul Normal 150-450 [facility] Comment on above: Performed By: #### C BC #### [facility] [address] [place] [address] Dr. Grzegorz Wang RBC 2.52 106/ul Critically low 4.20-5.40 [facility] Comment on above: Performed By: #### C BC #### [facility] [address] [place], [place] [address] Dr. Grzegorz Wang WBC 8.5 103/ul Normal 4.0-11.0 [facility] Comment on above: Performed By: #### C BC #### [facility] [address] [place], [place] [address] ABD/PELVIS WO CONon 10-16 CT ABD/PELVIS WO CON EXAMINATION: CT ABD/PELVIS WO CON, 10/16/2021 9:33 AM PDT HISTORY: UNSPECIFIED ABDOMINAL PAIN COMPARISON: None. TECHNIQUE: CT scan of the abdomen and pelvis was performed without IV contrast. CT dose reduction technique was used, including Automated Exposure Control. FINDINGS: Lung: Emphysema. Liver: No significant finding. Gallbladder: Absent. Spleen: No significant finding. Pancreas: No significant finding. Adrenal glands: No significant finding. Kidneys, ureters and bladder: No significant finding. Bowel: Surgical changes of the stomach. Anastomotic sutures in the left hemiabdomen noted. Peritoneum/retroperit oneum: No significant finding. Lymph nodes: No significant finding. Vessels: Heavy atherosclerotic calcifications. Body wall: No significant finding. Reproductive: 3 cm right ovarian cyst. Bones: Mild L4-L5 anterolisthesis. IMPRESSION: No acute findings. 3 cm right ovarian cyst. Pelvic ultrasound is recommended to further characterize. Electronically authenticated by: LYNN OLSON Date: 2021-10-16 13:53 Normal [facility] Covid-19 PCR (CVDTB)on SARS-CoV-2 (COVID-19) RNA SIOBHAN+probe Ql (Unsp spec) Not detected Normal NOT DETECTED [facility] Comment on above: Result Comment: When diagnostic testing is negative, the possibility of a false negative should be considered in the context of a patient's recent exposures and the presence of clinical signs and symptoms consistent with SARS-CoV-2. This test is not yet approved or cleared by the [place] FDA. When there are no FDA-approved or cleared tests available, and other criteria are met, FDA can make tests available under an emergency access mechanism called an Emergency Use Authorization (EUA). The EUA for this test is supported by the Farm Equipment Service Technician of Health and Human Service's declaration that circumstances exist to justify the emergency use of in vitro diagnostics for the detection and/or diagnosis of the virus that causes COVID-19. This EUA will remain in effect for the duration of the COVID-19 declaration justifying emergency of IVDs, unless it is terminated or revoked by the FDA (after which the test may no longer be used). Performed By: #### E RUR #### [facility] [address] [place] [address] Dr. Grzegorz Wang ER URINE PROFILEon 2 Bilirubin Ql (U) Negative Normal NEGATIVE [facility] Comment on above: Performed By: #### A MY, LIPA #### [facility] [address] [place] [address] Dr. Grzegorz Wang Clarity (U) CLEAR Normal CLEAR [facility] Comment on above: Performed By: #### A MY, LIPA #### [facility] [address] [place] [address] Dr. Grzegorz Wang Color (U) LT. YELLOW Normal YELLOW [facility] Comment on above: Performed By: #### A MY, LIPA #### [facility] [address] [place] [address] Dr. Grzegorz Carrasco micrscopic examination will be performed if indicated. Normal [facility] Comment on above: Performed By: #### A MY, LIPA #### [facility] [address] [place] [address] Dr. Grzegorz Wang Glucose Ql (U) Negative Normal NEGATIVE [facility] Comment on above: Performed By: #### A MY, LIPA #### [facility] [address] [place] [address] Dr. Grzegorz Wang Hemoglobin Ql (U) SMALL Abnormal NEGATIVE [facility] Comment on above: Performed By: #### A MY, LIPA #### [facility] [address] [place] [address] Dr. Grzegorz Wang Ketones Ql (U) Negative Normal NEGATIVE [facility] Comment on above: Performed By: #### A MY, LIPA #### [facility] [address] [place] [address] Dr. Grzegorz Wang LEUKOCYTES TRACE Abnormal NEGATIVE [facility] Comment on above: Performed By: #### A MY, LIPA #### [facility] [address] [place] [address] Dr. Grzegorz Wang Nitrite Ql (U) Negative Normal NEGATIVE [facility] Comment on above: Performed By: #### A MY, LIPA #### [facility] [address] [place] [address] Dr. Grzegorz Wang pH (U) 5.5 [pH] Normal 5-9 [facility] Comment on above: Performed By: #### A BRAYDEN, LIPA #### [facility] [address] [place] [address] Dr. Grzegorz Wang SPEC GRAVITY 1.005 Normal 1.005-<=1.0 25 [facility] Comment on above: Performed By: #### A BRAYDEN LIPA #### [facility] [address] [place] [address] Dr. Grzegorz Wang UA PROTEIN Negative Normal NEGATIVE/ TRACE [facility] Comment on above: Performed By: #### A BRAYDEN LIPA #### [facility] [address] [place] [address] Dr. Grzegorz Wang UR MICRO IND INDICATED Normal [facility] Comment on above: Performed By: #### A BRAYDEN, LIPA #### [facility] [address] [place] [address] Dr. Grzegorz Wnag Urobilinogen Qn (U) 0.2 {Lidya'U}/dL Normal 0.2 - 1. 0 [facility] Comment on above: Performed By: #### A BRAYDEN, LIPA #### [facility] [address] [place] [address] Dr. Grzegorz Wang LIPASEon 10-16-2021 Lipase [Catalytic activity/Vol] 77.0 U/L Normal 73.0-393.0 [facility] Comment on above: Performed By: #### A BRAYDEN, LIPA #### [facility] [address] [place] [address] Dr. Grzegorz Wang OCC BLD IMMUNO SCREENon OCCULT BLOOD Positive Abnormal NEGATIVE [facility] Comment on above: Performed By: #### A PHIL OWEN #### [facility] [address] [place] [address] Dr. Grzegorz Wang PROF 14(COMP METB)on 022 Albumin [Mass/Vol] 3.4 g/dL Normal 3.4-5.0 [facility] Comment on above: Performed By: #### C BC #### [facility] [address] [place] [address] Dr. Grzegorz Wang Albumin/Globulin [Mass ratio] 1.2 {ratio} Normal [facility] Comment on above: Performed By: #### C BC #### [facility] [address] [place] [address] Dr. Grzegorz Wang ALP [Catalytic activity/Vol] 77 U/L Normal 46-116 [facility] Comment on above: Performed By: #### C BC #### [facility] [address] [place] [address] Dr. Grzegorz Wang ALT [Catalytic activity/Vol] 18 U/L Normal 14-59 [facility] Comment on above: Performed By: #### C BC #### [facility] [address] [place] [address] Dr. Grzegorz Wang Anion gap [Moles/Vol] 15.3 mmol/L Normal [facility] Comment on above: Performed By: #### C BC #### [facility] [address] [place] [address] Dr. Grzegorz Wang AST [Catalytic activity/Vol] 17 U/L Normal 15-37 [facility] Comment on above: Performed By: #### C BC #### [facility] [address] [place] [address] Dr. Grzegorz Wang Bilirubin [Mass/Vol] 0.4 mg/dL Normal 0.2-1.0 [facility] Comment on above: Performed By: #### C BC #### [facility] [address] [place] [address] Dr. Grzegorz Wang Calcium [Mass/Vol] 8.5 mg/dL Normal 8.5-10.1 [facility] Comment on above: Performed By: #### C BC #### [facility] [address] [place] [address] Dr. Grzegorz Wang Chloride [Moles/Vol] 104 mmol/L Normal 98-107 [facility] Comment on above: Performed By: #### C BC #### [facility] [address] [place] [address] [address] Grzegorz Wang CO2 [Moles/Vol] 21.2 mmol/L Normal 21.0-32.0 [facility] Comment on above: Performed By: #### C BC #### [facility] [address] [place] [address] [address] Grzegorz Wang Creatinine [Mass/Vol] 1.68 mg/dL Critically high 0.55-1.02 [facility] Comment on above: Performed By: #### C BC #### [facility] [address] [place] [address] Dr. Grzegorz Wang EGFR-AF [place] 36 mL/min/1.73m2 Critically low >=60 [facility] Comment on above: Performed By: #### C BC #### [facility] [address] [place] [address] Dr. Grzegorz Wang EGFR-NON AF [place] 30 mL/min/1.73m2 Critically low >=60 [facility] Comment on above: Performed By: #### C BC #### [facility] [address] [place] [address] Dr. Grzegorz Wang Globulin (S) [Mass/Vol] 2.8 g/dL Normal [facility] Comment on above: Performed By: #### C BC #### [facility] [address] [place] [address] [address] Grzegorz Wang Glucose [Mass/Vol] 101 mg/dL Normal 74-106 [facility] Comment on above: Performed By: #### C BC #### [facility] [address] [place] [address] Dr. Grzegorz Wang Potassium [Moles/Vol] 3.5 mmol/L Normal 3.5-5.1 [facility] Comment on above: Performed By: #### C BC #### [facility] [address] [place] [address] [address] Grzegorz Wang Protein [Mass/Vol] 6.2 g/dL Critically low 6.4-8.2 Th e [facility] Comment on above: Performed By: #### C BC #### [facility] [address] [place] [address] [address] Grzegorz Wang Sodium [Moles/Vol] 137 mmol/L Normal 136-145 [facility] Comment on above: Performed By: #### C BC #### [facility] [address] [place] [address] Dr. Grzegorz Wang Urea nitrogen [Mass/Vol] 83.0 mg/dL Critically high 7.0-18.0 [facility] Comment on above: Result Comment: repe ated Performed By: #### C BC #### [facility] [address] [place] [address] Dr. Grzegorz Wang Urea nitrogen/Creatinine [Mass ratio] 49.4 mg/mg Normal [facility] Comment on above: Performed By: #### C BC #### [facility] [address] [place] [address] Dr. Grzegorz Wang PROTIMEon 10-16-2021 INR Coag (PPP) [Relative time] 0.99 {INR} Normal [facility] Comment on above: Performed By: #### P T, PTT #### [facility] [address] [place] [address] Dr. Grzegorz Wang INR GUIDELINES SEE BELOW Normal [facility] Comment on above: Result Comment: DENTON RED INR: 2.0 - 3.0 CONDITIONS NOT LISTED BELOW 2.5 - 3.5 FOR PROSTHETIC HEART VALVE REPLACEMENT 2.5 - 3.5 RECURRENT THROMBOSIS Performed By: #### P T, PTT #### [facility] [address] [place] [address] Dr. Grzegorz Wang PT Coag (PPP) [Time] 10.7 s Normal 9.0-11.6 [facility] Comment on above: Performed By: #### P T, PTT #### [facility] [address] [place] [address] Dr. Grzegorz Wang PTTon 10-16-2021 aPTT Coag (Bld) [Time] 23.5 s Normal 22.3-36.2 Th e [facility] Comment on above: Performed By: #### P T, PTT #### [facility] [address] [place] [address] Dr. Grzegorz Wang TYPE AND SCREENon 10-16-2021 TYPE AND SCREEN Negative Normal [facility] Comment on above: Performed By: #### C BC #### [facility] [address] [place] [address] Dr. Grzegorz Wang URINE MICROSCOPIC ONLYon BACTERIA NONE SEEN Normal NONE SEEN [facility] Comment on above: Performed By: #### A MY, LIPA #### [facility] [address] [place] [address] Dr. Grzegorz Wang Bacteria identified Cx Nom (U) NOT INDICATED Normal [facility] Comment on above: Performed By: #### A MY, LIPA #### [facility] [address] [place] [address] Dr. Grzegorz Wang CAST NONE SEEN Normal NONE SEEN [facility] Comment on above: Performed By: #### A MY, LIPA #### [facility] [address] [place] [address] Dr. Grzegorz Wang Crystals LM Nom (Urine sed) NONE SEEN Normal NONE SEEN [facility] Comment on above: Performed By: #### A MY, LIPA #### [facility] [address] [place] [address] Dr. Grzegorz Wang Epithelial cells LM Ql (Urine sed) RARE Normal NONE SEEN /RARE [facility] Comment on above: Performed By: #### A MY, LIPA #### [facility] [address] [place] [address] Dr. Grzegorz Wang MUCOUS NONE SEEN Normal NONE SEEN [facility] Comment on above: Performed By: #### A MY, LIPA #### [facility] [address] [place] [address] Dr. Grzegorz Wang RBC NONE SEEN Abnormal 0-2 [facility] Comment on above: Performed By: #### A BRAYDEN LIPA #### [facility] [address] [place] [address] Dr. Grzegorz Wang WBC NONE SEEN Normal NONE SEEN [facility] Comment on above: Performed By: #### A BRAYDEN LIPA #### [facility] [address] [place] [address] Dr. Grzegorz Wang BNPon 09-02-2021 Natriuretic peptide B (Bld) [Mass/Vol] 140.0 pg/mL Normal <=900.0 [facility] Comment on above: Performed By: #### C BC #### [facility] [address] [place] [address] Dr. Grzegorz Wang CARDIAC BAMBI ADMITon 022 CK [Catalytic activity/Vol] 121 U/L Normal 26-192 [facility] Comment on above: Performed By: #### C BC #### [facility] [address] [place] [address] Dr. Grzegorz Wang CK.MB [Mass/Vol] 2.44 ng/mL Normal <=3.60 [facility] Comment on above: Performed By: #### C BC #### [facility] [address] [place] [address] Dr. Grzegorz Wang HSTROP 9.8 pg/mL Normal 4.0-51.3 [facility] Comment on above: Result Comment: CUT- OFF POINTS HAVE BEEN ESTABLISHED BASED ON THE FOURTH UNIVERSAL DEFINITIONS OF MYOCARDIAL INFARCTION. THE UPPER REFERENCE LIMIT (URL) OF TROPONIN, DEFINED THE 99TH PERCENTILE OF cTnI DISTRIBUTION IN A REFERENCE POPULATION, HAS BEEN CONFIRMED THE DECISION THRESHOLD FOR VA DIAGNOSIS. Performed By: #### C BC #### [facility] [address] [place] [address] Dr. Grzegorz Wang MITZI 109 ng/mL Critically high 9-82 [facility] Comment on above: Performed By: #### C BC #### [facility] [address] [place] [address] Dr. Grzegorz Wang CBC AUTO DIFFon 09-02-2021 BASO # 0.0 103/ul Normal 0.0-0.1 [facility] Comment on above: Performed By: #### C BC #### [facility] [address] [place] [address] Dr. Grzegorz Wang Basophils/100 WBC (Bld) 0.5 % Normal 0.2-2.0 [facility] Comment on above: Performed By: #### C BC #### [facility] [address] [place] [address] Dr. Grzegorz aWng EO # 0.1 103/ul Normal 0.0-0.7 [facility] Comment on above: Performed By: #### C BC #### [facility] [address] [place] [address] Dr. Grzegorz Wang Eosinophils/100 WBC (Bld) 3.1 % Normal 0.9-7.0 [facility] Comment on above: Performed By: #### C BC #### [facility] [address] [place] [address] Dr. Grzegorz Wang Erythrocyte distribution width (RBC) [Ratio] 16.0 % Critically high 11.0-15.0 [facility] Comment on above: Performed By: #### C BC #### [facility] [address] [place] [address] Dr. Grzegorz Wang Hematocrit (Bld) [Volume fraction] 32.0 % Critically low 36.0-48.0 [facility] Comment on above: Performed By: #### C BC #### [facility] [address] [place] [address] Dr. Grzegorz Wang Hemoglobin (Bld) [Mass/Vol] 10.1 g/dL Critically low 12.0-16.0 [facility] Comment on above: Performed By: #### C BC #### [facility] [address] [place] [address] Dr. Grzegorz Wang IG # 0.01 10e3/ul Normal 0.00-0.03 [facility] Comment on above: Performed By: #### C BC #### [facility] [address] [place] [address] Dr. Grzegorz Wang IG % 0.3 % Normal 0.0-0.5 [facility] Comment on above: Performed By: #### C BC #### [facility] [address] [place] [address] Dr. Grzegorz Wang LYMPH # 1.7 103/ul Normal 1.2-3.8 [facility] Comment on above: Performed By: #### C BC #### [facility] [address] [place] [address] Dr. Grzegorz Wang Lymphocytes/100 WBC (Bld) 43.1 % Normal 20.5-60.0 [facility] Comment on above: Performed By: #### C BC #### [facility] [address] [place] [address] Dr. Grzegorz Wang MANUAL DIFF REQ NO Normal [facility] Comment on above: Performed By: #### C BC #### [facility] [address] [place] [address] Dr. Grzegorz Wang MCH (RBC) [Entitic mass] 23.9 pg Critically low 26.7-34.0 [facility] Comment on above: Performed By: #### C BC #### [facility] [address] [place] [address] Dr. Grzegorz Wang MCHC (RBC) [Mass/Vol] 31.6 g/dL Normal 29.9-35.2 [facility] Comment on above: Performed By: #### C BC #### [facility] [address] [place] [address] Dr. Grzegorz Wang MCV (RBC) [Entitic vol] 75.8 fL Critically low 81.0-99. 0 [facility] Comment on above: Performed By: #### C BC #### [facility] [address] [place] [address] Dr. Grzegorz Wang MONO # 0.4 103/ul Normal 0.3-0.8 [facility] Comment on above: Performed By: #### C BC #### [facility] [address] [place] [address] Dr. Grzegorz Wang Monocytes/100 WBC (Bld) 9.7 % Normal 1.7-12.0 [facility] Comment on above: Performed By: #### C BC #### [facility] [address] [place] [address] Dr. Grzegorz Wang NEUT # 1.7 103/ul Normal 1.4-6.5 [facility] Comment on above: Performed By: #### C BC #### [facility] [address] [place] [address] [address] Grzegorz Wang Neutrophils/100 WBC (Bld) 43.3 % Normal 43.0-75.0 [facility] Comment on above: Performed By: #### C BC #### [facility] [address] [place] [address] Dr. Grzegorz Wang Platelet mean volume (Bld) [Entitic vol] 10.1 fL Normal 9.5-13.5 [facility] Comment on above: Performed By: #### C BC #### [facility] [address] [place] [address] Dr. Grzegorz Wang PLT 179 103/ul Normal 150-450 [facility] Comment on above: Performed By: #### C BC #### [facility] [address] [place] [address] Dr. Grzegorz Wang RBC 4.22 106/ul Normal 4.20-5.40 [facility] Comment on above: Performed By: #### C BC #### [facility] [address] [place] [address] Dr. Grzegorz Wang WBC 3.8 103/ul Critically low 4.0-11.0 [facility] Comment on above: Performed By: #### C BC #### [facility] [address] [place] [address] CSPINE WO CONon 2 CT CSPINE WO CON EXAMINATION: CT CSPINE WO CON HISTORY: Unspecified fall COMPARISON: Prior soft tissue neck CT 05/08/2021. TECHNIQUE: CT Cervical spine without IV contrast. Coronal and sagittal reformations were performed. Dose reduction techniques were achieved by using automated exposure control and/or adjustment of mA and/or kV according to patient size and/or use of iterative reconstruction technique. FINDINGS: Vertebral body heights and intervertebral disc spaces are preserved. Mild/moderate multilevel bilateral facet arthropathy. No evidence of fracture or spondylolisthesis. No evidence of significant spinal canal stenosis or foraminal narrowing. A 0.4 cm peripheral pulmonary nodule within the right upper lobe is partially included on current study. IMPRESSION: 1. No evidence of fracture or spondylolisthesis. 2. Mild-moderate multilevel bilateral facet arthropathy. 3. Incompletely visualized 0.4 cm right upper lobe pulmonary nodule. Follow-up nonemergent chest CT is recommended to assess for additional pulmonary nodules as well as for more complete assessment of the right upper lobe pulmonary nodule. Electronically authenticated by: JEAN-PIERRE GIRALDO Date: 2021-09-02 19:33 Normal [facility] CT STROKE HEAD WOon 09-03-[address] STROKE HEAD WO EXAMINATION: CT STROKE HEAD WO HISTORY: Unspecified fall COMPARISON: 07/29/2021. TECHNIQUE: CT examination of the head without IV contrast. Dose reduction techniques were achieved by using automated exposure control and/or adjustment of mA and/or kV according to patient size and/or use of iterative reconstruction technique. FINDINGS: Old left temporal infarct with associated mild volume loss. Mild bilateral chronic microvascular ischemic change. No midline shift, mass effect or intracranial hemorrhage. The mastoid air cells and visualized paranasal sinuses are clear. No evidence of calvarial fracture. IMPRESSION: 1. No acute intracranial process is identified. 2. Old left temporal infarct. Mild bilateral chronic microvascular ischemic change. Electronically authenticated by: JEAN-PIERRE GIRALDO Date: 2021-09-02 19:29 Normal [facility] Covid-19 PCR (CVDTBH)on 08-12 SARS-CoV-2 (COVID-19) RNA SIOBHAN+probe Ql (Unsp spec) Detected Critically abnormal NOT DETECTED [facility] Comment on above: Result Comment: This test is not yet approved or cleared by the [place] FDA. When there are no FDA-approved or cleared tests available, and other criteria are met, FDA can make tests available under an emergency access mechanism called an Emergency Use Authorization (EUA). The EUA for this test is supported by the Farm Equipment Service Technician of Health and Human Service's declaration that circumstances exist to justify the emergency use of in vitro diagnostics for the detection and/or diagnosis of the virus that causes COVID-19. This EUA will remain in effect for the duration of the COVID-19 declaration justifying emergency of IVDs, unless it is terminated or revoked by the FDA (after which the test may no longer be used). Performed By: #### C BC #### [facility] [address] [place] [address] Dr. Grzegorz Wang DRUG SCREEN RAPID (URINE)on 09-02-2021 AMP Negative Normal NEGATIVE [facility] Comment on above: Performed By: #### E RUR #### [facility] [address] [place] [address] Dr. Grzegorz Wang BAR Negative Normal NEGATIVE [facility] Comment on above: Performed By: #### E RUR #### [facility] [address] [place] [address] Dr. Grzegorz Wang BUP Negative Normal NEGATIVE [facility] Comment on above: Performed By: #### E RUR #### [facility] [address] [place] [address] Dr. Grzegorz Wang BZO Negative Normal NEGATIVE [facility] Comment on above: Performed By: #### E RUR #### [facility] [address] [place] [address] Dr. Grzegorz Wang MITZY Negative Normal NEGATIVE [facility] Comment on above: Performed By: #### E RUR #### [facility] [address] [place] [address] Dr. Grzegorz Wang CUT-OFFS SEE BELOW Normal [facility] Comment on above: Result Comment: AMP (Amphetamine): 500ng/mL, BAR (Barbituates): 200 ng/mL, BZO (Benzodiazepines): 150 ng/mL, BUP (Buprenorphine): 10 ng/mL, MITZY (Cocaine): 150 ng/mL, mAMP (Methamphetamine): 500 ng/mL, MTD (Methadone): 200 ng/mL, OPI (Opiates): 100 ng/mL, OXY (Oxycodone): 100 ng/mL, PCP (Phencyclidine): 25 ng/mL, PPX (Propoxyphene): 300 ng/mL, THC (Cannabinoids): 50 ng/mL, TCA (Trycyclic Antidepressants): 300 ng/mL Performed By: #### E RUR #### [facility] [address] [place] [address] Dr. Grzegorz Wang DRUG CUT HEADER DRUG CLASS TEST SYSTEM CUT-OFF CONCENTRATIONS ARE FOLLOWS: Normal [facility] Comment on above: Performed By: #### E RUR #### [facility] [address] [place] [address] Dr. Grzegorz Wang mAMP Negative Normal NEGATIVE [facility] Comment on above: Performed By: #### E RUR #### [facility] [address] [place] [address] Dr. Grzegorz Wang MTD Negative Normal NEGATIVE [facility] Comment on above: Performed By: #### E RUR #### [facility] [address] [place] [address] Dr. Grzegorz Wang OPI Negative Normal NEGATIVE [facility] Comment on above: Performed By: #### E RUR #### [facility] [address] [place] [address] Dr. Grzegorz Wang OXY Negative Normal NEGATIVE [facility] Comment on above: Performed By: #### E RUR #### [facility] [address] [place] [address] Dr. Grzegorz Wang PCP Negative Normal NEGATIVE [facility] Comment on above: Performed By: #### E RUR #### [facility] [address] [place] [address] Dr. Grzegorz Wang PPX Negative Normal NEGATIVE [facility] Comment on above: Performed By: #### E RUR #### [facility] [address] [place] [address] Dr. Grzegorz Wang TCA Positive Abnormal NEGATIVE [facility] Comment on above: Performed By: #### E RUR #### [facility] [address] [place] [address] Dr. Grzegorz Wang THC Negative Normal NEGATIVE [facility] Comment on above: Performed By: #### E RUR #### [facility] [address] [place] [address] Dr. Grzegorz Wang LACTATE/LACTIC ACIDon 2021 Lactate [Moles/Vol] 0.7 mmol/L Normal 0.4-1.9 [facility] Comment on above: Performed By: #### E RUR #### [facility] [address] [place] [address] Dr. Grzegorz Wang PROF 14(COMP METB)on 022 Albumin [Mass/Vol] 3.1 g/dL Critically low 3.4-5.0 [facility] Comment on above: Performed By: #### C BC #### [facility] [address] [place] [address] Dr. Grzegorz Wang Albumin/Globulin [Mass ratio] 1.0 {ratio} Normal [facility] Comment on above: Performed By: #### C BC #### [facility] [address] [place] [address] Dr. Grzegorz Wang ALP [Catalytic activity/Vol] 81 U/L Normal 46-116 [facility] Comment on above: Performed By: #### C BC #### [facility] [address] [place] [address] Dr. Grzegorz Wang ALT [Catalytic activity/Vol] 21 U/L Normal 14-59 [facility] Comment on above: Performed By: #### C BC #### [facility] [address] [place] [address] Dr. Grzegorz Wang Anion gap [Moles/Vol] 11.9 mmol/L Normal [facility] Comment on above: Performed By: #### C BC #### [facility] [address] [place] [address] Dr. Grzegorz Wang AST [Catalytic activity/Vol] 21 U/L Normal 15-37 [facility] Comment on above: Performed By: #### C BC #### [facility] [address] [place] [address] Dr. Grzegorz Wang Bilirubin [Mass/Vol] 0.5 mg/dL Normal 0.2-1.0 [facility] Comment on above: Performed By: #### C BC #### [facility] [address] [place] [address] Dr. Grzegorz Wang Calcium [Mass/Vol] 8.3 mg/dL Critically low 8.5-10.1 [facility] Comment on above: Performed By: #### C BC #### [facility] [address] [address] [address] Grzegorz Wang Chloride [Moles/Vol] 100 mmol/L Normal 98-107 [facility] Comment on above: Performed By: #### C BC #### [facility] [address] [address] [address] Grzegorz Wang CO2 [Moles/Vol] 25.6 mmol/L Normal 21.0-32.0 [facility] Comment on above: Performed By: #### C BC #### [facility] [address] [address] [address] Grzegorz Wang Creatinine [Mass/Vol] 1.39 mg/dL Critically high 0.55-1.02 [facility] Comment on above: Performed By: #### C BC #### [facility] [address] [place] [address] Dr. Grzegorz Wang EGFR-AF [place] 45 mL/min/1.73m2 Critically low >=60 [facility] Comment on above: Performed By: #### C BC #### [facility] [address] [place] [address] Dr. Grzegorz Wang EGFR-NON AF [place] 37 mL/min/1.73m2 Critically low >=60 [facility] Comment on above: Performed By: #### C BC #### [facility] [address] [address] [address] Grzegorz Wang Globulin (S) [Mass/Vol] 3.1 g/dL Normal [facility] Comment on above: Performed By: #### C BC #### [facility] [address] [address] [address] Grzegorz Wang Glucose [Mass/Vol] 96 mg/dL Normal 74-106 [facility] Comment on above: Performed By: #### C BC #### [facility] [address] [place] [address] Dr. Grzegorz Wang Potassium [Moles/Vol] 3.5 mmol/L Normal 3.5-5.1 [facility] Comment on above: Performed By: #### C BC #### [facility] [address] [address] [address] Grzegorz Wang Protein [Mass/Vol] 6.2 g/dL Critically low 6.4-8.2 [facility] Comment on above: Performed By: #### C BC #### [facility] [address] [address] [address] Grzegorz Wang Sodium [Moles/Vol] 134 mmol/L Critically low 136-145 [facility] Comment on above: Performed By: #### C BC #### [facility] [address] [address] [address] Grzegorz Wang Urea nitrogen [Mass/Vol] 33.0 mg/dL Critically high 7.0-18.0 [facility] Comment on above: Performed By: #### C BC #### [facility] [address] [place] [address] Dr. Grzegorz Wang Urea nitrogen/Creatinine [Mass ratio] 23.7 mg/mg Normal [facility] Comment on above: Performed By: #### C BC #### [facility] [address] [place] [address] Dr. Grzegorz Wang PROTIMEon 09-02-2021 INR Coag (PPP) [Relative time] {INR} Normal [facility] Comment on above: Performed By: #### A PHIL OWEN #### [facility] [address] [place] [address] Dr. Grzegorz Wang INR GUIDELINES SEE BELOW Normal [facility] Comment on above: Result Comment: DENTON RED INR: 2.0 - 3.0 CONDITIONS NOT LISTED BELOW 2.5 - 3.5 FOR PROSTHETIC HEART VALVE REPLACEMENT 2.5 - 3.5 RECURRENT THROMBOSIS Performed By: #### A LUCHO OWENA #### [facility] [address] [place] [address] Dr. Grzegorz Wang PT Coag (PPP) [Time] 10.0 s Normal 9.0-11.6 [facility] Comment on above: Performed By: #### A BRAYDEN LIPA #### [facility] [address] [place], [place] [address] Dr. Grzegorz Wang PTTon 09-02-2021 aPTT Coag (Bld) [Time] 32.1 s Normal 22.3-36.2 Th e [facility] Comment on above: Performed By: #### A PHIL OWEN #### [facility] [address] [place], [place] [address] Dr. Grzegorz Wang XR CHEST 1 Von 09-02-2021 XR CHEST 1 V EXAM: Yue x-ray HISTORY: . Altered mental status . COMPARISON: 07/29/2021 TECHNIQUE: AP portable upright view of the chest FINDINGS: Heart and vascularity are unremarkable. Lungs are free of focal infiltrates. Loop recorder overlies the left chest. Atherosclerotic changes of the thoracic aorta are noted. IMPRESSION: No acute heart or lung disease identified. Electronically authenticated by: NATACHA CERNA Date: 2021-09-02 19:18 Normal [facility] XR hand RT min 3V*on 022 XR hand RT min 3V* [facility] [employer] Other XR hand RT min 3V* [facility] [employer] Other XR hand RT min 3V* [address] [place] [address] [employer] Other XR hand RT min 3V* [place] [address] [employer] Other XR hand RT min 3V* XRay Report [employer] Other XR hand RT min 3V* Signed [employer] Other XR hand RT min 3V* Patient: Ozzie Gifford MR#: [id number] [employer] Other XR hand RT min 3V* [id number] [employer] Other XR hand RT min 3V* : 1950 Acct:[id number] [employer] Other XR hand RT min 3V* Age/Sex: 71 / F ADM Date: 08/02/21 [employer] Other XR hand RT min 3V* Loc: [facility]: [facility] [employer] Other XR hand RT min 3V* Attending Dr: Neeraj Arrington MD [employer] Other XR hand RT min 3V* Copies to: Susie Arrington MD [employer] Other XR hand RT min 3V* Ordering Provider: Susie Arrington MD [employer] Other XR hand RT min 3V* Date of Service: 08/02/21 [employer] Other XR hand RT min 3V* XR/XR hand RT min 3V*: Closed nondisplaced fracture of proximal phalanx [employer] Other XR hand RT min 3V* of right mi [employer] Other XR hand RT min 3V* 4 viewsRIGHT hand plain film [employer] Other XR hand RT min 3V* COMPARISON:07/12/21 [employer] Other XR hand RT min 3V* HISTORY:Status post RIGHT long finger proximal phalanx fracture [employer] Other XR hand RT min 3V* No bony alignment stable. No interval healing. Extensive degeneration. [employer] Other XR hand RT min 3V* XR/XR hand RT min 3V* [employer] Other XR hand RT min 3V* IMPRESSION:Stable findings [employer] Other XR hand RT min 3V* Impression dictated by: Husam Martinez M.D.08/02/2021 12:13 PM [employer] Other XR hand RT min 3V* Dictation Location: [place] [address] [employer] Other XR hand RT min 3V* Transcribed By: PWS 08/02/21 1213 [facility] [employer] Other XR hand RT min 3V* Dictated By: Husam Martinez DO 08/02/21 1211 [facility] [employer] Other XR hand RT min 3V* Signed By: [facility] [employer] Other XR hand RT min 3V* 08/02/21 1213 [facility] [employer] Other BNPon 07-29-2021 Natriuretic peptide B (Bld) [Mass/Vol] 192.0 pg/mL Normal <=900.0 [facility] Comment on above: Performed By: #### E RUR #### [facility] [address] [place] [address] Dr. Grzegorz Wang CARDIAC BAMBI ADMITon 022 CK [Catalytic activity/Vol] 82 U/L Normal 26-192 [facility] Comment on above: Performed By: #### E RUR #### [facility] [address] [place] [address] Dr. Grzegorz Wang CK.MB [Mass/Vol] 2.40 ng/mL Normal <=3.60 [facility] Comment on above: Performed By: #### E RUR #### [facility] [address] [place] [address] Dr. Grzegorz Wang HSTROP 4.7 pg/mL Normal 4.0-51.3 [facility] Comment on above: Result Comment: CUT- OFF POINTS HAVE BEEN ESTABLISHED BASED ON THE FOURTH UNIVERSAL DEFINITIONS OF MYOCARDIAL INFARCTION. THE UPPER REFERENCE LIMIT (URL) OF TROPONIN, DEFINED THE 99TH PERCENTILE OF cTnI DISTRIBUTION IN A REFERENCE POPULATION, HAS BEEN CONFIRMED THE DECISION THRESHOLD FOR VA DIAGNOSIS. Performed By: #### E RUR #### [facility] [address] [place] [address] Dr. Grzegorz Wang MITZI 70 ng/mL Normal 9-82 [facility] Comment on above: Performed By: #### E RUR #### [facility] [address] [place] [address] Dr. Grzegorz Wang CBC AUTO DIFFon 07-29-2021 BASO # 0.0 103/ul Normal 0.0-0.1 [facility] Comment on above: Performed By: #### E RUR #### [facility] [address] [address] [address] Grzegorz Wang Basophils/100 WBC (Bld) 0.7 % Normal 0.2-2.0 [facility] Comment on above: Performed By: #### E RUR #### [facility] [address] [address] [address] Grzegorz Wang EO # 0.2 103/ul Normal 0.0-0.7 [facility] Comment on above: Performed By: #### E RUR #### [facility] [address] [place] [address] Dr. Grzegorz Wang Eosinophils/100 WBC (Bld) 4.1 % Normal 0.9-7.0 [facility] Comment on above: Performed By: #### E RUR #### [facility] [address] [place] [address] Dr. Grzegorz Wang Erythrocyte distribution width (RBC) [Ratio] 15.7 % Critically high 11.0-15.0 [facility] Comment on above: Performed By: #### E RUR #### [facility] [address] [place] [address] Dr. Grzegorz Wang Hematocrit (Bld) [Volume fraction] 32.6 % Critically low 36.0-48.0 [facility] Comment on above: Performed By: #### E RUR #### [facility] [address] [place] [address] Dr. Grzegorz Wang Hemoglobin (Bld) [Mass/Vol] 9.9 g/dL Critically low 12.0-16.0 [facility] Comment on above: Performed By: #### E RUR #### [facility] [address] [place] [address] Dr. Grzegorz Wang IG # 0.02 10e3/ul Normal 0.00-0.03 [facility] Comment on above: Performed By: #### E RUR #### [facility] [address] [place] [address] Dr. Grzegorz Wang IG % 0.3 % Normal 0.0-0.5 [facility] Comment on above: Performed By: #### E RUR #### [facility] [address] [place] [address] Dr. Grzegorz Wang LYMPH # 1.7 103/ul Normal 1.2-3.8 [facility] Comment on above: Performed By: #### E RUR #### [facility] [address] [place] [address] Dr. Grzegorz Wang Lymphocytes/100 WBC (Bld) 28.0 % Normal 20.5-60.0 [facility] Comment on above: Performed By: #### E RUR #### [facility] [address] [place] [address] Dr. Grzegorz Wang MANUAL DIFF REQ NO Normal [facility] Comment on above: Performed By: #### E RUR #### [facility] [address] [place] [address] Dr. Grzegorz Wang MCH (RBC) [Entitic mass] 23.9 pg Critically low 26.7-34.0 [facility] Comment on above: Performed By: #### E RUR #### [facility] [address] [place] [address] Dr. Grzegorz Wang MCHC (RBC) [Mass/Vol] 30.4 g/dL Normal 29.9-35.2 [facility] Comment on above: Performed By: #### E RUR #### [facility] [address] [place] [address] Dr. Grzegorz Wang MCV (RBC) [Entitic vol] 78.7 fL Critically low 81.0-99. 0 [facility] Comment on above: Performed By: #### E RUR #### [facility] [address] [place] [address] Dr. Grzegorz Wang MONO # 0.6 103/ul Normal 0.3-0.8 [facility] Comment on above: Performed By: #### E RUR #### [facility] [address] [place] [address] Dr. Grzegorz Wang Monocytes/100 WBC (Bld) 10.4 % Normal 1.7-12.0 [facility] Comment on above: Performed By: #### E RUR #### [facility] [address] [place] [address] Dr. Grzegorz Wang NEUT # 3.3 103/ul Normal 1.4-6.5 [facility] Comment on above: Performed By: #### E RUR #### [facility] [address] [place] [address] Dr. Grzegorz Wang Neutrophils/100 WBC (Bld) 56.5 % Normal 43.0-75.0 [facility] Comment on above: Performed By: #### E RUR #### [facility] [address] [place] [address] Dr. Grzegorz Wang Platelet mean volume (Bld) [Entitic vol] 10.2 fL Normal 9.5-13.5 [facility] Comment on above: Performed By: #### E RUR #### [facility] [address] [place] [address] Dr. Grzegorz Wang PLT 216 103/ul Normal 150-450 [facility] Comment on above: Performed By: #### E RUR #### [facility] [address] [place] [address] Dr. Grzegorz Wang RBC 4.14 106/ul Critically low 4.20-5.40 [facility] Comment on above: Performed By: #### E RUR #### [facility] [address] [place] [address] Dr. Grzegorz Wang WBC 5.9 103/ul Normal 4.0-11.0 [facility] Comment on above: Performed By: #### E RUR #### [facility] [address] [place] [address] HEAD WO CONon 07-29-2021 CT HEAD WO CON EXAMINATION: CT HEAD WO CON HISTORY: Asthenia COMPARISON: CT 05/08/2021 TECHNIQUE: CT examination of the head without IV contrast. Dose reduction techniques were achieved by using automated exposure control and/or adjustment of mA and/or kV according to patient size and/or use of iterative reconstruction technique. FINDINGS: Stable atrophy, mild ventricular enlargement and white matter microangiopathy. No acute infarct, hemorrhage or mass effect. The visualized sinuses and mastoids are clear. The visualized orbits are unremarkable. IMPRESSION: No acute findings Electronically authenticated by: DORIAN GREENE Date: 2021-07-29 15:01 Normal [facility] ER URINE PROFILEon 2 Bilirubin Ql (U) Negative Normal NEGATIVE [facility] [facility] Comment on above: Performed By: #### E RUR #### [facility] [address] [place] [address] Dr. Grzegorz Wang Clarity (U) CLEAR Normal CLEAR [facility] Comment on above: Performed By: #### E RUR #### [facility] [address] [place] [address] Dr. Grzegorz Wang Color (U) LT. YELLOW Normal YELLOW [facility] Comment on above: Performed By: #### E RUR #### [facility] [address] [place] [address] Dr. Grzegorz Wang ERUAHD A micrscopic examination will be performed if indicated. Normal [facility] Comment on above: Performed By: #### E RUR #### [facility] [address] [place] [address] Dr. Grzegorz Wang Glucose Ql (U) Negative Normal NEGATIVE [facility] Comment on above: Performed By: #### E RUR #### [facility] [address] [place] [address] Dr. Grzegorz Wang Hemoglobin Ql (U) Negative Normal NEGATIVE [facility] Comment on above: Performed By: #### E RUR #### [facility] [address] [place] [address] Dr. Grzegorz Wang Ketones Ql (U) Negative Normal NEGATIVE [facility] Comment on above: Performed By: #### E RUR #### [facility] [address] [place] [address] Dr. Grzegorz Wang LEUKOCYTES Negative Normal NEGATIVE [facility] Comment on above: Performed By: #### E RUR #### [facility] [address] [place] [address] Dr. Grzegorz Wang Nitrite Ql (U) Negative Normal NEGATIVE [facility] Comment on above: Performed By: #### E RUR #### [facility] [address] [place] [address] Dr. Grzegorz Wang pH (U) 5.5 [pH] Normal 5-9 [facility] Comment on above: Performed By: #### E RUR #### [facility] [address] [place] [address] Dr. Grzegorz Wang SPEC GRAVITY 1.010 Normal 1.005-<=1.0 25 [facility] Comment on above: Performed By: #### E RUR #### [facility] [address] [place] [address] Dr. Grzegorz Wang UA PROTEIN Negative Normal NEGATIVE/ TRACE [facility] Comment on above: Performed By: #### E RUR #### [facility] [address] [place] [address] Dr. Grzegorz Wang UR MICRO IND NOT INDICATED Normal [facility] Comment on above: Performed By: #### E RUR #### [facility] [address] [place] [address] Dr. Grzegorz Wang Urobilinogen Qn (U) 0.2 {Lidya'U}/dL Normal 0.2 - 1. 0 [facility] Comment on above: Performed By: #### E RUR #### [facility] [address] [place] [address] Dr. Grzegorz Wang PROF 14(COMP METB)on 022 Albumin [Mass/Vol] 3.1 g/dL Critically low 3.4-5.0 [facility] Comment on above: Performed By: #### E RUR #### [facility] [address] [place] [address] Dr. Grzegorz Wang Albumin/Globulin [Mass ratio] 1.0 {ratio} Normal [facility] Comment on above: Performed By: #### E RUR #### [facility] [address] [place] [address] Dr. Grzegorz Wang ALP [Catalytic activity/Vol] 99 U/L Normal 46-116 [facility] Comment on above: Performed By: #### E RUR #### [facility] [address] [place] [address] Dr. Grzegorz Wang ALT [Catalytic activity/Vol] 18 U/L Normal 14-59 [facility] Comment on above: Performed By: #### E RUR #### [facility] [address] [place] [address] Dr. Grzegorz Wang Anion gap [Moles/Vol] 10.5 mmol/L Normal Th [facility] Comment on above: Performed By: #### E RUR #### [facility] [address] [place] [address] Dr. Grzegorz Wang AST [Catalytic activity/Vol] 14 U/L Critically low 15-37 [facility] Comment on above: Performed By: #### E RUR #### [facility] [address] [place] [address] Dr. Grzegorz Wnag Bilirubin [Mass/Vol] 0.3 mg/dL Normal 0.2-1.0 [facility] Comment on above: Performed By: #### E RUR #### [facility] [address] [place] [address] Dr. Grzegorz Wang Calcium [Mass/Vol] 8.5 mg/dL Normal 8.5-10.1 [facility] Comment on above: Performed By: #### E RUR #### [facility] [address] [place] [address] Dr. Grzegorz Wang Chloride [Moles/Vol] 108 mmol/L Critically high 98-107 [facility] Comment on above: Performed By: #### E RUR #### [facility] [address] [place] [address] Dr. Grzegorz Wang CO2 [Moles/Vol] 26.0 mmol/L Normal 21.0-32.0 [facility] Comment on above: Performed By: #### E RUR #### [facility] [address] [place] [address] Dr. Grzegorz Wang Creatinine [Mass/Vol] 1.07 mg/dL Critically high 0.55-1.02 [facility] Comment on above: Performed By: #### E RUR #### [facility] [address] [place] [address] Dr. Grzegorz Wang EGFR-AF [place] >60 Normal >=60 [facility] Comment on above: Performed By: #### E RUR #### [facility] [address] [place] [address] Dr. Grzegorz Wang EGFR-NON AF [place] 50 mL/min/1.73m2 Critically low >=60 [facility] Comment on above: Performed By: #### E RUR #### [facility] [address] [place] [address] Dr. Grzegorz Wang Globulin (S) [Mass/Vol] 3.0 g/dL Normal T [facility] Comment on above: Performed By: #### E RUR #### [facility] [address] [place] [address] Dr. Grzegorz Wang Glucose [Mass/Vol] 87 mg/dL Normal 74-106 [facility] Comment on above: Performed By: #### E RUR #### [facility] [address] [place] [address] Dr. Grzegorz Wang Potassium [Moles/Vol] 3.5 mmol/L Normal 3.5-5.1 [facility] Comment on above: Performed By: #### E RUR #### [facility] [address] [place] [address] Dr. Grzegorz Wang Protein [Mass/Vol] 6.1 g/dL Critically low 6.4-8.2 [facility] Comment on above: Performed By: #### E RUR #### [facility] [address] [place] [address] Dr. Grzegorz Wang Sodium [Moles/Vol] 141 mmol/L Normal 136-145 [facility] Comment on above: Performed By: #### E RUR #### [facility] [address] [place] [address] Dr. Grzegorz Wang Urea nitrogen [Mass/Vol] 22.0 mg/dL Critically high 7.0-18.0 [facility] Comment on above: Performed By: #### E RUR #### [facility] [address] [place] [address] Dr. Grzegorz Wang Urea nitrogen/Creatinine [Mass ratio] 20.6 mg/mg Normal [facility] Comment on above: Performed By: #### E RUR #### [facility] [address] [place] [address] Dr. Grzegorz Wang PROTIMEon 07-29-2021 INR Coag (PPP) [Relative time] 0.99 {INR} Normal [facility] Comment on above: Performed By: #### P TT, PT #### [facility] [address] [place] [address] Dr. Grzegorz Wang INR GUIDELINES SEE BELOW Normal [facility] Comment on above: Result Comment: DENTON RED INR: 2.0 - 3.0 CONDITIONS NOT LISTED BELOW 2.5 - 3.5 FOR PROSTHETIC HEART VALVE REPLACEMENT 2.5 - 3.5 RECURRENT THROMBOSIS Performed By: #### P TT, PT #### [facility] [address] [place] [address] Dr. Grzegorz Wang PT Coag (PPP) [Time] 10.7 s Normal 9.0-11.6 [facility] Comment on above: Performed By: #### P TT, PT #### [facility] [address] [place] [address] Dr. Grzegorz Wang PTTon 07-29-2021 aPTT Coag (Bld) [Time] 31.0 s Normal 22.3-36.2 [facility] Comment on above: Performed By: #### P TT, PT #### [facility] [address] [place] [address] Dr. Grzegorz Wang XR CHEST 1 Von 07-29-2021 XR CHEST 1 V EXAM: XR CHEST 1 V HISTORY: Asthenia difficulty walking today, unable to get up a step, history of CVA, carotid endarterectomy, and right total knee arthroplasty. COMPARISON: CT of the chest May 08, 2021 FINDINGS/IMPRESSION: 1. No focal consolidation. 2. The costophrenic angles are sharp. 3. There is no evidence of pneumothorax. The cardiomediastinal silhouette is within normal limits with aortic vascular calcifications. A left chest loop recorder is appreciated. 4. No acute osseous abnormality. Electronically authenticated by: NATACHA TO Date: 2021-07-29 14:54 Normal [facility] XR hand RT min 3V*on 022 XR hand RT min 3V* [facility] [employer] Other XR hand RT min 3V* [facility] [employer] Other XR hand RT min 3V* [address] [place] [address] [employer] Other XR hand RT min 3V* [place] [address] [employer] Other XR hand RT min 3V* XRay Report [employer] Other XR hand RT min 3V* Signed [employer] Other XR hand RT min 3V* Patient: Ozzie Gifford MR#: [id number] [employer] Other XR hand RT min 3V* [id number] [employer] Other XR hand RT min 3V* : 1950 Acct:[id number] [employer] Other XR hand RT min 3V* Age/Sex: 71 / F ADM Date: 07/12/21 [employer] Other XR hand RT min 3V* Loc: [facility] Room: Type : [facility] [employer] Other XR hand RT min 3V* Attending Dr: Neeraj Arrington MD [employer] Other XR hand RT min 3V* Ordering Provider: Susie Arrington MD [employer] Other XR hand RT min 3V* Date of Service: 07/12/21 [employer] Other XR hand RT min 3V* XR/XR hand RT min 3V*: Right hand pain [employer] Other XR hand RT min 3V* Copies to: Susie Arrington MD [employer] Other XR hand RT min 3V* XR hand RT min 3V* 07/12/2021 10:43 AM [employer] Other XR hand RT min 3V* SIGNS AND SYMPTOMS: Fall, pain in right hand greatest in the right thumb with swelling [employer] Other XR hand RT min 3V* PROTOCOL: Frontal, lateral, and oblique radiographs of the right hand [employer] Other XR hand RT min 3V* COMPARISON: None [employer] Other XR hand RT min 3V* FINDINGS: [employer] Other XR hand RT min 3V* There is mild narrowing of the distal interphalangeal joints. There is a mild flexion deformity of [employer] Other XR hand RT min 3V* the fifth proximal interphalangeal joint. There is mild narrowing of the first metacarpophalangeal [employer] Other XR hand RT min 3V* junction with mild t o moderate degenerative change at the first carpometacarpal joint. There is no [employer] Other XR hand RT min 3V* evidence of acute displaced fracture. No evidence of dislocation. [employer] Other XR hand RT min 3V* XR/XR hand RT min 3V* [employer] Other XR hand RT min 3V* IMPRESSION: [employer] Other XR hand RT min 3V* No evidence of fracture. [employer] Other XR hand RT min 3V* Degenerative changes are noted, greatest in the thumb. [employer] Other XR hand RT min 3V* There is a mild flexion deformity of the fifth proximal interphalangeal joint. [employer] Other XR hand RT min 3V* Impression dictated by: Bambi Sung M.D.07/12/2021 12:29 PM [employer] Other XR hand RT min 3V* Dictation Location: [place] [address] [employer] Other XR hand RT min 3V* Transcribed By: PWS 07/12/21 1229 [employer] Other XR hand RT min 3V* Dictated By: Bambi Sung II, MD 07/12/21 1228 [facility] [employer] Other XR hand RT min 3V* Signed By: [employer] Other XR hand RT min 3V* 07/12/[address] [place] [address] [employer] Other CBC AUTO DIFFon 05-08-2021 BASO # 0.1 103/ul Normal 0.0-0.1 [facility] Comment on above: Performed By: #### C BC #### [facility] [address] [place] [address] Dr. Grzegorz Wang Basophils/100 WBC (Bld) 0.8 % Normal 0.2-2.0 [facility] Comment on above: Performed By: #### C BC #### [facility] [address] [place] [address] Dr. Grzegorz Wang EO # 0.3 103/ul Normal 0.0-0.7 [facility] Comment on above: Performed By: #### C BC #### [facility] [address] [place] [address] Dr. Grzegorz Wang Eosinophils/100 WBC (Bld) 3.8 % Normal 0.9-7.0 [facility] Comment on above: Performed By: #### C BC #### [facility] [address] [place] [address] Dr. Grzegorz Wang Erythrocyte distribution width (RBC) [Ratio] 14.1 % Normal 11.0-15.0 [facility] Comment on above: Performed By: #### C BC #### [facility] [address] [place] [address] Dr. Grzegorz Wang Hematocrit (Bld) [Volume fraction] 34.4 % Critically low 36.0-48.0 [facility] Comment on above: Performed By: #### C BC #### [facility] [address] [place] [address] Dr. Grzegorz Wang Hemoglobin (Bld) [Mass/Vol] 10.4 g/dL Critically low 12.0-16.0 [facility] Comment on above: Performed By: #### C BC #### [facility] [address] [place] [address] Dr. Grzegorz Wang IG # 0.04 10e3/ul Critically high 0.00-0.03 [facility] Comment on above: Performed By: #### C BC #### [facility] [address] [place] [address] Dr. Grzegorz Wang IG % 0.5 % Normal 0.0-0.5 [facility] Comment on above: Performed By: #### C BC #### [facility] [address] [place] [address] Dr. Grzegorz Wang LYMPH # 1.7 103/ul Normal 1.2-3.8 [facility] Comment on above: Performed By: #### C BC #### [facility] [address] [place] [address] Dr. Grzegorz Wang Lymphocytes/100 WBC (Bld) 22.1 % Normal 20.5-60.0 [facility] Comment on above: Performed By: #### C BC #### [facility] [address] [place] [address] Dr. Grzegorz Wang MANUAL DIFF REQ NO Normal [facility] Comment on above: Performed By: #### C BC #### [facility] [address] [place] [address] Dr. Grzegorz Wang MCH (RBC) [Entitic mass] 25.6 pg Critically low 26.7-34.0 [facility] Comment on above: Performed By: #### C BC #### [facility] [address] [place] [address] [address] Grzegorz Wang MCHC (RBC) [Mass/Vol] 30.2 g/dL Normal 29.9-35.2 [facility] Comment on above: Performed By: #### C BC #### [facility] [address] [place] [address] Dr. Grzegorz Wang MCV (RBC) [Entitic vol] 84.5 fL Normal 81.0-99.0 [facility] Comment on above: Performed By: #### C BC #### [facility] [address] [place] [address] Dr. Grzegorz Wang MONO # 0.8 103/ul Normal 0.3-0.8 [facility] Comment on above: Performed By: #### C BC #### [facility] [address] [place] [address] Dr. Grzegorz Wang Monocytes/100 WBC (Bld) 11.1 % Normal 1.7-12.0 [facility] Comment on above: Performed By: #### C BC #### [facility] [address] [place] [address] Dr. Grzegorz Wang NEUT # 4.7 103/ul Normal 1.4-6.5 [facility] Comment on above: Performed By: #### C BC #### [facility] [address] [place] [address] Dr. Grzegorz Wang Neutrophils/100 WBC (Bld) 61.7 % Normal 43.0-75.0 [facility] Comment on above: Performed By: #### C BC #### [facility] [address] [place] [address] Dr. Grzegorz Wang Platelet mean volume (Bld) [Entitic vol] 10.6 fL Normal 9.5-13.5 [facility] Comment on above: Performed By: #### C BC #### [facility] [address] [place] [address] Dr. Grzegorz Wang PLT 281 103/ul Normal 150-450 [facility] Comment on above: Performed By: #### C BC #### [facility] [address] [place], [place] [address] Dr. Grzegorz Wang RBC 4.07 106/ul Critically low 4.20-5.40 [facility] Comment on above: Performed By: #### C BC #### [facility] [address] [place], [place] [address] Dr. Grzegorz Wang WBC 7.6 103/ul Normal 4.0-11.0 [facility] Comment on above: Performed By: #### C BC #### [facility] [address] [place], [place] [address] CHEST WO CONon 05-08-2021 CT CHEST WO CON EXAMINATION: CT CHES T WO CON HISTORY: Subcutaneous emphysema COMPARISON: None. TECHNIQUE: CT examination of the chest without IV contrast. Coronal and sagittal reformations were performed. Dose reduction techniques were achieved by using automated exposure control and/or adjustment of mA and/or kV according to patient size and/or use of iterative reconstruction technique. FINDINGS: The heart size is normal. There is no evidence for pericardial effusion. The thoracic aorta is normal in course and caliber. There is no evidence for thoracic aortic aneurysm. Thoracic aortic and coronary arterial calcification is seen. There is no evidence for pleural effusion or pneumothorax. A few mildly prominent paratracheal lymph nodes are seen measuring up to 1 cm in short axis. Small patchy hazy infiltrates are seen in the right lung. Scattered small subcentimeter nonspecific noncalcified nodules are also seen in the right lung, with the largest seen along the right major fissure, measuring 7 mm. The visualized chest wall appears unremarkable. However, please note the entire chest wall is not included on this examination. No acute osseous abnormality is seen. IMPRESSION: Small patchy hazy infiltrates are seen in the right lung. Scattered small subcentimeter nonspecific noncalcified nodules are also seen in the right lung, with the largest seen along the right major fissure, measuring 7 mm. Electronically authenticated by: LUCI MARADIAGA Date: 2021-05-08 18:59 Normal [facility] CT HEAD WO CONon 05-08-2021 CT HEAD WO CON EXAMINATION: CT HEAD WO CON, 05/08/2021 4:07 PM EDT HISTORY: Dizziness, status post fall. COMPARISON: CT head 07/21/2018. TECHNIQUE: CT scan of the head was performed without IV contrast. CT dose reduction technique was used, including Automated Exposure Control. FINDINGS: BRAIN PARENCHYMA/CSF SPACES: Moderately enlarged ventricles and sulci consistent with atrophy. There is no hemorrhage, mass effect or midline shift. Moderate to severe atherosclerotic carotid artery calcification. There is moderate low-attenuation throughout the white matter consistent with chronic microvascular ischemia. Probable small chronic infarct within the left superior temporal lobe which is likely stable. PARANASAL SINUSES: Clear. SKULL BASE AND CALVARIUM AND EXTRA CRANIAL SOFT TISSUES: There is moderate soft tissue air within the infratemporal fossa bilaterally and extending along the right scalp and to a lesser extent in the left scalp. There is also a small amount of air within the anterior epidural space at the foramen magnum. IMPRESSION: 1. No acute intracranial abnormality. 2. 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 3. Indeterminate soft tissue air is noted within the bilateral infratemporal fossae and extending into the scalp as well as at the anterior epidural space at the foramen magnum. Further evaluation is recommended with noncontrast CT of the neck and chest. Electronically authenticated by: MITZI LOWRY Date: 2021-05-08 17:27 Normal [facility] CT NECK ST WO CONon 05-09-[address] WO CON EXAMINATION: CT NECK ST WO CON HISTORY: Subcutaneous emphysema COMPARISON: None. TECHNIQUE: Axial CT scans of the neck were obtained without contrast. MPR images were obtained. Dose reduction techniques were achieved by using automated exposure control and/or adjustment of mA and/or kV according to patient size and/or use of iterative reconstruction technique. FINDINGS: The visualized intracranial contents show a small area of low-attenuation with volume loss in the lateral aspect of the left temporal lobe, probably due to a small old infarct. Bilateral lens replacement. The paranasal sinuses, middle ear cavities and mastoids are clear. The parotid glands, parapharyngeal spaces and left heel former spaces appear normal. A tiny amount of air in the venous system in the right parapharyngeal space and in the venous system of the right heel former space. A tiny amount air in probably the right and left cavernous sinuses. The nasopharynx, oropharynx and hypopharynx show no abnormal mass. The oral tongue, the floor the mouth and the submandibular glands appear normal. A small nodule with a calcified density in the right thyroid lobe is present. Prior right carotid endarterectomy. Some atherosclerotic calcifications in the proximal left internal carotid. No adenopathy in the neck. No abnormal fluid collection. The visualized upper lungs are clear. No destructive bony lesions. IMPRESSION: A tiny small amount of air in probably the cavernous sinuses, right parapharyngeal space and venous system in the right heel former space, likely iatrogenic. No abnormal fluid collection. Prior right carotid endarterectomy. 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 Electronically authenticated by: BASIM CABAN Date: 2021-05-08 19:23 Normal [facility] PROF CHEM 8 (BAS METB)on Anion gap [Moles/Vol] 12.3 mmol/L Normal [facility] Comment on above: Performed By: #### A BRAYDEN LIPA #### [facility] [address] [place] [address] Dr. Grzegorz Wang Calcium [Mass/Vol] 8.4 mg/dL Critically low 8.5-10.1 [facility] Comment on above: Performed By: #### A BRAYDEN LIPA #### [facility] [address] [place] [address] Dr. Grzegorz Wang Chloride [Moles/Vol] 108 mmol/L Critically high 98-107 [facility] Comment on above: Performed By: #### A BRAYDEN LIPA #### [facility] [address] [place] [address] Dr. Grzegorz Wang CO2 [Moles/Vol] 25.9 mmol/L Normal 22.0-30.0 [facility] Comment on above: Performed By: #### A BRAYDEN LIPA #### [facility] [address] [place] [address] Dr. Grzegorz Wang Creatinine [Mass/Vol] 1.18 mg/dL Critically high 0.52-1.04 [facility] Comment on above: Performed By: #### A BRAYDEN LIPA #### [facility] Laboratory [address] [place] [address] Dr. Grzegorz Wang EGFR-AF HONG KONGER 55 mL/min/1.73m2 Critically low >=60 [facility] Comment on above: Performed By: #### A BRAYDEN LIPA #### [facility] Laboratory [address] [place] [address] Dr. Grzegorz Wang EGFR-NON AF [place]ER 45 mL/min/1.73m2 Critically low >=60 [facility] Comment on above: Performed By: #### A BRAYDEN LIPA #### [facility] Laboratory [address] [place] [address] Dr. Grzegorz Wang Glucose [Mass/Vol] 84 mg/dL Normal 74-106 [facility] Comment on above: Performed By: #### A BRAYDEN LIPA #### [facility] Laboratory [address] [place] [address] Dr. Grzegorz Wang Potassium [Moles/Vol] 3.2 mmol/L Critically low 3.4-5.0 [facility] Comment on above: Performed By: #### A BRAYDEN LIPA #### [facility] [address] [place] [address] Dr. Grzegorz Wang Sodium [Moles/Vol] 143 mmol/L Normal 137-145 [facility] Comment on above: Performed By: #### A BRAYDEN LIPA #### [facility] [address] [place] [address] Dr. Grzegorz Wang Urea nitrogen [Mass/Vol] 35.0 mg/dL Critically high 7.0-18.0 [facility] Comment on above: Performed By: #### A BRAYDEN LIPA #### [facility] [address] [place] [address] Dr. Grzegorz Wang Urea nitrogen/Creatinine [Mass ratio] 29.7 mg/mg Normal [facility] Comment on above: Performed By: #### A BRAYDEN LIPA #### [facility] [address] [place] [address] Dr. Grzegorz Wang XR PELVIS 1_2 VIEWSon 2021 XR PELVIS 1_2 VIEWS EXAM: XR PELVIS 1_2 VIEWS, XR SACRUM_COCCYX HISTORY: History of fall COMPARISON: None. TECHNIQUE: Single supine view of the pelvis FINDINGS: No acute fracture is seen. Joint alignment is normal. Joint spaces are preserved. The soft tissues appear unremarkable. IMPRESSION: No radiographic evidence for acute displaced fracture or malalignment. Electronically authenticated by: LUCI MARADIAGA Date: 2021-05-08 17:24 Normal [facility] XR wrist LT min 3V*on 2021 XR wrist LT min 3V* [facility] [employer] Other XR wrist LT min 3V* [facility] [employer] Other XR wrist LT min 3V* [address] [place] [address] [employer] Other XR wrist LT min 3V* [place] [address] [employer] Other XR wrist LT min 3V* XRay Report [place] [employer] Other XR wrist LT min 3V* Signed [facility] Other XR wrist LT min 3V* Patient: Ozzie Gifford MR#: [id number] [employer] Other XR wrist LT min 3V* [id number] [facility] Other XR wrist LT min 3V* : 1950 Acct:[id number] [facility] Other XR wrist LT min 3V* Age/Sex: 70 / F ADM Date: 05/03/21 [facility] Other XR wrist LT min 3V* Loc: SOXD Room: Type : [facility] Other XR wrist LT min 3V* Attending Dr: Neeraj Arrington MD [facility] Other XR wrist LT min 3V* Ordering Provider: Susie Arrington MD [facility] Other XR wrist LT min 3V* Date of Service: 05/03/21 [facility] Other XR wrist LT min 3V* XR/XR wrist LT min 3V*: Other specified postprocedural states [facility] Other XR wrist LT min 3V* Copies to: Susie Arrington MD [facility] Other XR wrist LT min 3V* 4 viewsLEFT wrist plain film [facility] Other XR wrist LT min 3V* COMPARISON:03/31/21 [facility] Other XR wrist LT min 3V* HISTORY:Status post ORIF distal radius fracture [facility] Other XR wrist LT min 3V* No hardware failure. Adequate bony alignment. Healing distal radius fracture noted. [facility] Other XR wrist LT min 3V* XR/XR wrist LT min 3V* [facility] Other XR wrist LT min 3V* IMPRESSION:Healing distal radius fracture. No hardware failure. [facility] Other XR wrist LT min 3V* Impression dictated by: Husam Martinez M.D.05/03/2021 2:12 PM [facility] Other XR wrist LT min 3V* Dictation Location: [place] [address] [facility] Other XR wrist LT min 3V* Transcribed By: SHYANN 05/03/21 141 [facility] Other XR wrist LT min 3V* Dictated By: Husam Martinez DO 05/03/21 1411 [facility] Other XR wrist LT min 3V* Signed By: [facility] Other XR wrist LT min 3V* 05/03/21 141 No rt [employer] Other XR FOREARM LT 2 VIEWSon 03-14 XR FOREARM LT 2 VIEWS IMAGES REVIEWED: X R WRIST LT MIN 3 V, XR FOREARM LT 2 VIEWS COMPARISON: 11/17/2020. CLINICAL INDICATION: Injury, pain. FINDINGS/IMPRESSION: Left wrist: 1. Acute comminuted intra-articular mildly displaced mildly impacted fracture of the distal radius. 2. Question acute nondisplaced fracture of the ulnar styloid. There is also a chronic corticated ossicle adjacent to the ulnar styloid. 3. Severe degenerative change of the first CMC joint. Left forearm: 1. Proximal extent of the left forearm appears intact. 2. No elbow joint effusion. Electronically authenticated by: MARYSE LANGFORD Date: 2021-03-30 20:17 Normal [facility] Cardiovascular Lab Reporton 03-03-2020 Cardiovascular Lab Report [facility] Patient Name: [facility] Ozzie MR #: [id number] Department of Physician: Donna Henderson M.D. Division of Service Date: 03/03/2020 Cardiology Birthdate: 1950 Adult Cardiovascular Room #: [place] [address] Cardiovascular Laboratory Report FINAL IMPRESSION: 1. Moderate angiographic, heavily calcific stenosis of the left anterior descending, non hemodynamically significant as assessed by instantaneous wave-free ratio (iFR). 2. Moderate angiographic, heavily calcific stenosis of the right coronary artery, non hemodynamically significant stenosis as assessed by instantaneous wave-free ratio (iFR). 3. Mild plaque of the left circumflex coronary artery. 4. Hyperdynamic global left ventricular systolic function as assessed by left ventriculography. 5. Normal right-sided heart pressures. 6. Normal pulmonary capillary wedge pressure. 7. Normal cardiac output/cardiac index. RECOMMENDATIONS: 1. The patient may proceed to upcoming surgery at moderate risk; no further cardiovascular testing is needed. Recommend strict heart rate and blood pressure control and avoidance of major fluid shifts. 2. Aggressive cardiovascular risk factor modification. 3. Optimization of medical management; aspirin, high-intensity statin therapy, beta jimmy, +/- an angiotensin-convertin g enzyme inhibitor are indicated. 4. Further investigations and management for the patient's underlying anemia with her family physician as appropriate. 5. Follow up with Dr. Nicolas Carrillo and/or Liz Lane CNP as scheduled. 6. Follow up with her family physician as scheduled. PROCEDURES: Limited femoral angiography, right heart catheterization, bilateral selective coronary angiography, left heart catheterization, left ventriculography, instantaneous wave-free ratio of the left anterior descending coronary artery, instantaneous wave-free ratio of the right coronary artery. METHODS: After risks, benefits, and alternatives were explained, written informed consent was obtained. The patient was prepped and draped in usual sterile fashion over the right groin. Using 1% lidocaine solution, local infiltration anesthesia was achieved. Using a modified Seldinger technique and a micropuncture kit, access to the right common femoral vein and artery was obtained. A 6-Palauan 11 cm sheath was inserted in each. Difficulty exchanging the micropuncture kit for a 6-Palauan sheath encountered for the arterial access site; therefore, the micropuncture kit was removed, manual pressure was held. Repeat access performed. Angiography under digital subtraction revealed no evidence of dye extravasation, vessel trauma or bleeding. A Carson catheter was used for right heart catheterization. Pressures were measured in the right atrium, right ventricle, pulmonary artery, and pulmonary capillary wedge positions. Oxygen saturations were obtained and a cardiac output/cardiac index was calculated using the Katelin principle. The Carson catheter was removed. Bilateral selective coronary angiography was performed using JL4 and JR4 catheters. A pigtail catheter was used for left heart catheterization, left ventriculography and aortic pullback pressure measurements. After reviewing the images and data, it was elected to proceed with the physiological assessment of the coronary lesions. A 6-Palauan XB 3.5 guide catheter was advanced over J-wire and coaxially engaged into the left main ostium. The volcano pressure wire was advanced through the catheter with pressures normalized just off the exiting the catheter. The wire was used to traverse the suspected stenosis. An instantaneous wave-free ratio was performed. The wire was removed. Final angiography showed SARAH-3 flow with no dissection, thrombus, or distal wire trauma. The guide catheter was removed. A 5-Palauan JR4 guide catheter was advanced in and coaxially engaged into the right coronary ostium. The volcano pressure wire was advanced through the catheter with pressures normalized just off the exiting. The wire was used to traverse the suspect stenosis and positioned distally. An instantaneous wave-free ratio was performed. The wire was removed. Final angiography showed SARAH-3 flow with no dissection, thrombus, or distal wire trauma. At this point, it was elected to conclude the procedure. The sheath was removed with application of manual pressure to achieve optimal hemostasis. Overall, the patient tolerated the procedure well. There were no overt complications. She was to be transferred to the holding area in stable condition. FINDINGS: Hemodynamics: 1. AO 128/55 (88). 2. LV 128/12, 20. 3. RA 8. 4. RV 30/6, 13. 5. PA 30/13 (20). 6. PCWP 12. 7. TPG 8. 8. Cardiac output 5.42/cardiac index 2.98. LEFT VENTRICULOGRAPHY: Single plane ventriculography in the right anterior oblique projection shows an ejection fraction estimated to be 75%. No significant wall motion abnormalities are seen. The ascending aorta appears generous with no significant aneurysmal segments or dissection flaps. No significant mitral regurgitation is seen. CORONARY ARTERIES: Left main coronary artery. This arises from the left coronary cusp. It bifurcates into the left anterior descending and left circumflex coronary arteries. It shows mild plaque. Left anterior descending coronary artery. This shows mild plaque proximally. There is a 50% heavily calcific stenosis at the bifurcation with a medium size 2nd diagonal. Instantaneous wave-free ratio (iFR) is 0.90 across this lesion. The adjacent diagonal has a 40% proximal stenosis. The mid to distal left anterior descending shows caliber reduction and luminal irregularities. Left circumflex coronary artery. This shows mild luminal irregularities and calcium. Right coronary artery. This is a dominant vessel giving rise to the posterior descending and posterolateral branches. It shows mild calcific plaque in the proximal and mid portions. There is a short segment 50% calcific stenosis in the mid to distal portion with an instantaneous wave-free ratio (iFR) of 0.90. Final images showed SARAH-3 flow with no dissection, thrombus, or distal wire trauma. Fluoroscopy; there is evidence of an implantable loop recorder fluoroscopically. Limited femoral angiography shows significant plaque and calcification in the common femoral artery. There was a 50% ostial stenosis in the profunda femoral artery. Given more than 1 access attempt manual pressure was held for hemostasis. INDICATIONS: Angina, preoperative evaluation. Electronically Signed by: Jacklyn Doty M.D. 03/08/2020 09:05 A Jacklyn Doty M.D. Date Dict: 03/03/2020/11:44 A/Jacklyn Doty M.D. Date Trans: 03/03/2020 12:28 P/mmo [id number] cc: Nicolas Carrillo M.D. Heart Failure/ Transplant [facility] [address] [place] [address], [employer] OPERATOR [address] [facility] [address] [place] [address] Normal [facility] Vital Signs Date Time Vital Sign Value Performing Clinician Facility 10-16-2022 14:10-0400 Body height 154.94 cm Kori Temple Other [facility] Other 10-16-2022 14:10-0400 Body mass index (BMI) [Ratio] 26.53 kg/m2 Kori Temple Other [facility] Other 10-16-2022 14:10-0400 Body temperature 98.1 [degF] Kori Temple Other [facility] Other 10-16-2022 14:10-0400 Body weight 63.69 kg Kori Temple Other [facility] Other 10-16-2022 14:10-0400 Diastolic blood pressure 81 mm[Hg] Kori Temple Other [facility] Other 10-16-2022 14:10-0400 Respiratory rate 18 /min Kori Temple Other [facility] Other 10-16-2022 14:10-0400 SaO2% (BldA) [Mass fraction] 98 % Kori Temple Other [facility] Other 10-16-2022 14:10-0400 Systolic blood pressure 139 mm[Hg] Kori Temple Other [facility] Other 04-04-2022 09:30-0500 Body height 154.94 cm Denver Juarez Other [facility] Other 04-04-2022 09:30-0500 Body mass index (BMI) [Ratio] 28.72 kg/m2 Denver Juarez Other [facility] Other 04-04-2022 09:30-0500 Body temperature 97.8 [degF] Denver Juarez Other [facility] Other 04-04-2022 09:30-0500 Body weight 68.95 kg Denver Juarez Other [facility] Other 04-04-2022 09:30-0500 Diastolic blood pressure 72 mm[Hg] Denver Juarez Other [facility] Other 04-04-2022 09:30-0500 SaO2% (BldA) [Mass fraction] 98 % Denver Juarez Other [facility] Other 04-04-2022 09:30-0500 Systolic blood pressure 116 mm[Hg] Denver Juarez Other [facility] Other 11-22-2021 12:12-0400 Body temperature 97.9 [degF] MD Shaikh Day Work Phone: [facility] 11-22-2021 12:12-0400 Diastolic blood pressure 82 mm[Hg] MD Shaikh Day Work Phone: [facility] 11-22-2021 12:12-0400 Heart rate 95 /min MD Shaikh Day Work Phone: [facility] 11-22-2021 12:12-0400 Respiratory rate 16 /min MD Shaikh Day Work Phone: [facility] 11-22-2021 12:12-0400 SaO2% (BldA) [Mass fraction] 98 % MD Shaikh Day Work Phone: [facility] 11-22-2021 12:12-0400 Systolic blood pressure 151 mm[Hg] MD Shaikh Day Work Phone: [facility] 11-22-2021 04:04-0400 Body weight 78.6 kg MD Shaikh Day Work Phone: [facility] 11-21-2021 17:12-0400 Body height 157.48 cm MD Shaikh Day Work Phone: [facility] 11-21-2021 13:57-0400 Diastolic blood pressure 56 mm[Hg] MD Shaikh Day Work Phone: [facility] 11-21-2021 13:57-0400 Heart rate 77 /min MD Shaikh Day Work Phone: [facility] 11-21-2021 13:57-0400 Respiratory rate 16 /min MD Shaikh Day Work Phone: [facility] 11-21-2021 13:57-0400 SaO2% (BldA) [Mass fraction] 95 % MD Shaikh Day Work Phone: [facility] 11-21-2021 13:57-0400 Systolic blood pressure 117 mm[Hg] MD Shaikh Day Work Phone: [facility] 11-21-2021 11:24-0400 Body temperature 96.9 [degF] MD Shaikh Day Work Phone: [facility] 11-21-2021 03:56-0400 Body height 157.48 cm MD Shaikh Day Work Phone: [facility] 11-21-2021 03:56-0400 Body weight 75.9 kg MD Shaikh Day Work Phone: [facility] 09-27-2021 10:15-0400 Body height 154.94 cm Denver Juarez Other [facility] Other 09-27-2021 10:15-0400 Body mass index (BMI) [Ratio] 35.9 kg/m2 Denver Juarez Other [facility] Other 09-27-2021 10:15-0400 Body temperature 96.2 [degF] Denver Juarez Other [facility] Other 09-27-2021 10:15-0400 Body weight 86.18 kg Denver Juarez Other [facility] Other 09-27-2021 10:15-0400 Diastolic blood pressure 52 mm[Hg] Denver Juarez Other [facility] Other 09-27-2021 10:15-0400 SaO2% (BldA) [Mass fraction] 97 % Denver Juarez Other [facility] Other 09-27-2021 10:15-0400 Systolic blood pressure 110 mm[Hg] Denver Juarez Other [facility] Other 09-22-2021 14:15-0400 Body height 154.94 cm Ilda Das Other [facility] Other 09-22-2021 14:15-0400 Body mass index (BMI) [Ratio] 35.9 kg/m2 Ilda Das Other [facility] Other 09-22-2021 14:15-0400 Body temperature 98.2 [degF] Ilda Das Other [facility] Other 09-22-2021 14:15-0400 Body weight 86.18 kg Ilda Das Other [facility] Other 09-22-2021 14:15-0400 Respiratory rate 18 /min Ilda Das Other [facility] Other 09-22-2021 14:15-0400 SaO2% (BldA) [Mass fraction] 98 % Ilda Das Other [facility] Other 09-20-2021 17:00-0400 Body height 154.94 cm Susiejennifer Arrington Other [facility] Other 09-20-2021 17:00-0400 Body mass index (BMI) [Ratio] 35.9 kg/m2 Susie Rosaliachetan Other [facility] Other 09-20-2021 17:00-0400 Body weight 86.18 kg Susie Arrington Other [facility] Other 05-03-2021 11:45-0400 Body height 154.94 cm Susie Murphy Other [facility] Other 05-03-2021 11:45-0400 Body mass index (BMI) [Ratio] 35.9 kg/m2 Susie Arrington Other [facility] Other 05-03-2021 11:45-0400 Body weight 86.18 kg Susie Arrington Other [facility] Other 03-02-2021 10:00-0500 Body height 154.94 cm Denver Juarez Other [facility] Other 03-02-2021 10:00-0500 Body mass index (BMI) [Ratio] 36.27 kg/m2 Denver Juarez Other [facility] Other 03-02-2021 10:00-0500 Body temperature 96.5 [degF] Denver Juarez Other [facility] Other 03-02-2021 10:00-0500 Body weight 87.09 kg Denver Juarez Other [facility] Other 03-02-2021 10:00-0500 Diastolic blood pressure 58 mm[Hg] Denver Juarez Other [facility] Other 03-02-2021 10:00-0500 SaO2% (BldA) [Mass fraction] 99 % Denver Juarez Other [facility] Other 03-02-2021 10:00-0500 Systolic blood pressure 108 mm[Hg] Denver Juarez Other [facility] Other 12-01-2020 10:00-0400 Body height 154.94 cm Denver Juarez Other [facility] Other 12-01-2020 10:00-0400 Body mass index (BMI) [Ratio] 36.27 kg/m2 Denver Juarez Other [facility] Other 12-01-2020 10:00-0400 Body weight 87.09 kg Denver Larry Other [facility] Other 12-01-2020 10:00-0400 Diastolic blood pressure 79 mm[Hg] Denver Juarez Other [facility] Other 12-01-2020 10:00-0400 Systolic blood pressure 149 mm[Hg] Denver Juarez Other [facility] Other 11-10-2020 10:30-0400 Body height 154.94 cm Denver Juarez Other [facility] Other 11-10-2020 10:30-0400 Body mass index (BMI) [Ratio] 35.9 kg/m2 Denver Juarez Other [facility] Other 11-10-2020 10:30-0400 Body weight 86.18 kg Denver Juarez Other [facility] Other 11-10-2020 10:30-0400 Diastolic blood pressure 84 mm[Hg] Denver Juarez Other [facility] Other 11-10-2020 10:30-0400 Systolic blood pressure 150 mm[Hg] Denver Juarez Other [facility] Other Encounters Encounter Date Encounter Type Care Provider Facility Start: 02-16-2023 ambulatory [facility] Start: 02-13-2023 End: 02-13-2023 ambulatory MEGHANN RAYMUNDO [facility] Start: 01-21-2023 ambulatory De Oliveira Fawwad Facility: [facility] Start: 10-16-2022 End: 10-16-2022 ambulatory Kori Temple Other [facility] [employer] Other Start: 10-16-2022 Office outpatient visit 15 minutes Kori Temple [facility] Start: 08-28-2022 End: 08-28-2022 ambulatory NICOLAS LOMAXBHUPENDRA [facility] Start: 04-04-2022 Office outpatient visit 15 minutes Denver Juarez [facility] Start: 04-04-2022 End: 04-04-2022 ambulatory Denver Juarez [facility] [employer] Other Start: 03-06-2022 End: 03-06-2022 ambulatory Earline Harris Other [facility] [employer] Other Start: 03-06-2022 Telephone encounter Earline Harris [facility] [address] Start: 03-05-2022 End: 03-05-2022 ambulatory MEGHANN FONSECA [facility] Start: 03-02-2022 End: 03-02-2022 ambulatory De Oliveira Fawwad Facility:[facility] Start: 03-02-2022 End: 03-02-2022 ambulatory MD Gerry Hartley Work Phone: [facility] Work Phone: Start: 03-02-2022 End: 03-02-2022 Departed Referred MD Gerry Hartley Work Phone: [facility] [place] Work Phone: Start: 02-21-2022 End: 02-22-2022 ambulatory MEGHANN FONSECA Facility:[facility] Start: 02-20-2022 End: 02-21-2022 ambulatory DE OLIVEIRA H FAWWAD Facility:[facility] Start: 01-31-2022 End: 02-01-2022 ambulatory DE OLIVEIRA H FAWWAD Facility:[facility] Start: 01-22-2022 End: 01-23-2022 ambulatory DE OLIVEIRA H FATyeWAD Facility:[facility] Start: 01-18-2022 End: 01-19-[address] Facility:[facility] Start: 01-09-2022 End: 01-09-2022 ambulatory MD Shaikh Day Work Phone: [facility] Work Phone: Start: 01-09-2022 End: 01-09-2022 Discharged Recurring MD Shaikh Day Work Phone: [facility]-Speech Therapy [address] Start: 01-02-2022 End: 01-03-2022 ambulatory DE OLIVEIRA H FAWWAD Facility:[facility] Start: 12-07-2021 End: 12-08-2021 ambulatory DE OLIVEIRA H FAWWAD Facility:[facility] Start: 11-27-2021 End: 11-28-2021 ambulatory DE OLIVEIRA H FAWWAD Facility:[facility] Start: 11-26-2021 End: 11-26-2021 ambulatory DE OLIVEIRA H FATyeWAD Facility:[facility] Start: 11-24-2021 End: 11-24-2021 Emergency department patient visit [address] [facility] PH[facility]IC[facility] Facility:[id number] Start: 11-21-2021 End: 11-22-2021 Evaluation and management of inpatient MD Shaikh Day Work Phone: [facility] Start: 11-14-2021 Registered Recurring MD Shaikh Day Work Phone: [facility]-Speech Therapy [address] Start: 10-31-2021 End: 10-31-2021 ambulatory Denver Juarez Other [facility] Other Start: 10-31-2021 Telephone encounter Denver singh [facility] Start: 10-24-2021 End: 10-25-2021 ambulatory DE OLIVEIRA H FATyeWAD Facility:[facility] Start: 10-16-2021 End: 10-18-2021 Evaluation and management of inpatient SHAIKH Be DAY Facility:[facility] Start: 09-27-2021 End: 09-27-2021 ambulatory Denver Larry Other [facility] Other Start: 09-27-2021 Office outpatient visit 15 minutes Denver Larry [facility] Start: 09-22-2021 End: 09-22-2021 ambulatory Ilda Das Other [facility] Other Start: 09-22-2021 Office outpatient visit 15 minutes Ilda Das [facility] [address] Start: 09-20-2021 End: 09-20-2021 ambulatory Susie Arrington Other [facility] Other Start: 09-20-2021 Office outpatient visit 10 minutes Susie Arrington [facility] Start: 09-02-2021 End: 09-02-2021 ambulatory DE OLIVEIRA Be BARB Facility:[facility] Start: 08-31-2021 End: 08-31-2021 Patient encounter procedure MD Shaikh Day Work Phone: [facility]-Ultrasound [facility] Start: 08-29-2021 Registered Recurring MD Shaikh Day Work Phone: [facility]-Speech Therapy [address] Start: 08-24-[address] Facility :[facility] Start: 08-02-2021 End: 08-02-2021 ambulatory Susie Arrington Other [facility] Other Start: 08-02-2021 End: 08-02-2021 Patient encounter procedure Susie Arrington [facility] Start: 07-29-2021 End: 07-29-2021 ambulatory DE OLIVEIRA H LILIAD Facility:[facility] Start: 07-12-2021 End: 07-12-2021 ambulatory Susie Arrington Other [facility] Other Start: 07-12-2021 Office outpatient visit 15 minutes Susie Calvey [facility] Start: 07-12-2021 End: 07-12-2021 Patient encounter procedure MD Shaikh Day Work Phone: [facility]-XRay [facility] Start: 06-15-2021 End: 06-15-2021 Discharged Recurring MD Shaikh Day Work Phone: [facility]-Editor [employer] [address] Start: 05-31-2021 End: 05-31-2021 ambulatory Susie Murphy Other [facility] Other Start: 05-31-2021 Postop follow up vis it related to original px Susie Calvey [facility] Start: 05-08-2021 End: 05-08-2021 ambulatory SHAIKH Be DAY Facility:[facility] Start: 05-03-2021 End: 05-03-2021 ambulatory Susie Rosaliaey Other [facility] Other Start: 05-03-2021 Postop follow up vis it related to original px Susie Calvey [facility] Start: 03-30-2021 End: 03-31-2021 ambulatory DE OLIVEIRA Be LILIAD Facility:[facility] Start: 03-02-2021 End: 03-02-2021 ambulatory Denver Juarez Other [facility] Other Start: 03-02-2021 Office outpatient visit 15 minutes Denver Juarez [facility] Start: 12-01-2020 Office outpatient visit 25 minutes Denver Juarez [facility] Start: 11-10-2020 Office outpatient visit 15 minutes Denver Juarez [facility] V[facility] Surgery Procedures Date Procedure Procedure Detail Performing Clinician Start: 11-21-2021 CT of head without contrast MD Shaikh Day Work Phone: Start: 11-21-2021 Plain chest X-ray MD Fab Day Work Phone: Start: 10-17-2021 Inspection of Upper Intestinal Tract, Via Natural or Artificial Opening Endoscopic [address] Start: 10-16-2021 Transfusion of Nonau tologous Red Blood Cells into Peripheral Vein, Percutaneous Approach [address] Start: 08-31-2021 Doppler ultrasonogra phy of bilateral carotid arteries MD Shaikh Day Work Phone: Start: 08-02-2021 Plain X-ray of right hand MD Shaikh Day Work Phone: Start: 07-12-2021 Plain X-ray of right hand MD Shaikh Day Work Phone: Blood culture for ba cteria, including anaerobic screen MD Shaikh Day Work Phone: SARS-CoV-2, Influenz a & RSV (PCR) MD Shaikh Day Work Phone: Urine culture MD Shaikh Geovani dykes Work Phone: Plan of Treatment Date Care Activity Detail Author Start: 03-02-2022 Bacteria identified in Urine by Culture Urine Culture [facility] Start: 11-22-2021 Comprehensive metabolic 2000 panel - Serum or Plasma [facility] Start: 11-22-2021 Magnesium measurement [facility] Start: 11-22-2021 End: 11-22-2021 [facility] Start: 11-21-2021 Patient referral to dietitian [facility] Start: 11-21-2021 Referral to traffic control signaler [facility] Start: 11-21-2021 Hospital admission [facility] Start: 11-21-2021 Physical therapy procedure [facility] Start: 11-21-2021 Referral to occupational therapist [facility] Start: 11-21-2021 [facility] Start: 08-31-2021 Doppler ultrasonography of bilateral carotid arteries US carotid doppler BI [facility] Start: 08-31-2021 US.doppler Carotid arteries - bilateral [facility] Work Phone: Bacteria identified in Blood by Culture [facility] Bacteria identified in Urine by Culture [facility] Blood culture for ba cteria, including anaerobic screen Blood Culture [facility] Patient Education Bradycardia (DC) [facility] Work Phone: Patient referral [facility] Work Phone: Urine culture Urine Culture [facility] Immunizations Immunization Date Immunization Notes Care Provider Fa cility 06-11-2020 COVID-19 Ad26.COV2.S (Clarence) MD Shaikh Day Work Phone: [facility] Payers Date Payer Category Payer Unknown [id number] 1961 Medicare [id number] 2. [id number] 1961 Self-pay [id number] 1950 Unknown [id number] 2.16.8 40.1.798707.3.579.2.159 1948 Unknown [id number] 2.16.84 0.1.170328.3.579.2.593 1948 Unknown [id number] 2.16.84 0.1.802427.3.579.2.593 1948 Unknown [id number] 2.16.84 0.1.964509.3.579.2.593 1948 Unknown [id number] 2.16.84 0.1.969432.3.579.2.593 1948 Unknown [id number] 2.16.84 0.1.882207.3.579.2.593 1948 Unknown [id number] 2.16.84 0.1.146628.3.579.2.593 1948 Unknown [id number] 2.16.84 0.1.315429.3.579.2.593 1948 Unknown [id number] 2.16.84 0.1.914786.3.579.2.593 1948 Unknown [id number] 2.16.84 0.1.900194.3.579.2.593 1948 Unknown [id number] 2.16.84 0.1.960109.3.579.2.593 1948 Unknown [id number] 2.16.84 0.1.498158.3.579.2.593 1948 Unknown [id number] 2.16.84 0.1.072145.3.579.2.593 1948 Unknown [id number] 2.16.84 0.1.957641.3.579.2.593 1948 Unknown [id number] 2.16.84 0.1.410073.3.579.2.593 1948 Unknown [id number] 2.16.84 0.1.341890.3.579.2.593 1948 Unknown [id number] 2.16.84 0.1.778522.3.579.2.593 1948 Unknown [id number] 2.16.84 0.1.917972.3.579.2.593 1948 Unknown [id number] 2.16.84 0.1.206873.3.579.2.593 1948 Unknown [id number] 2.16.84 0.1.036647.3.579.2.1286 Medicare Medicare [id number] Medicare Medicare [id number] Unknown [id number] 2.16.8 40.1.345548.3.579.2.531 Unknown [id number] 2.16.8 40.1.366310.3.579.2.531 Unknown [id number] 2.16.8 40.1.913821.3.579.2.531 Social History Date Type Detail Facility Sex Assigned At K[facility] Other Start: 03-31-2021 End: 11-22-2021 Tobacco smoking status NHIS Ex-smoker (finding) [facility] Start: 1950 Sex Assigned At Female F [facility] Medical Equipment Procedure Code Equipment Code Equipment Origin al Text Equipment Identifier Dates ORIF, fracture, wrist Orthopaedic fixation plate, non-bioabsorbable, sterile [id number] FDA Start: 03-31-2021 ORIF, fracture, wrist Orthopaedic bone screw, non-bioabsorbable, non-sterile ()[id number] FDA Start: 03-31-2021 ORIF, fracture, wrist Orthopaedic bone screw, non-bioabsorbable, non-sterile ()[id number] FDA Start: 03-31-2021 ORIF, fracture, wrist Orthopaedic bone screw, non-bioabsorbable, non-sterile ()[id number] FDA Start: 03-31-2021 ORIF, fracture, wrist Orthopaedic bone screw, non-bioabsorbable, non-sterile ()[id number] FDA Start: 03-31-2021 Endarterectomy, carotid Cardiovascular patch, animal-derived ()[id number] FDA Start: 04-06-2020 Goals Date Patient Goal Desired Activity /State Functional Status Date Assessment Result Facility 11-22-2021 Functional status Patient at Baseline [facility] Work Phone: 11-21-2021 Functional status Patient Not at Baseline [facility] Work Phone: Mental Status Date Assessment Result Facility 11-22-2021 Cognitive function Cognitive Sta tus Patient at Baseline [facility] Work Phone: 11-21-2021 Cognitive function Cognitive Sta tus Patient Not at Baseline [facility] Work Phone: Clinical Notes 11-10-2020 to 02-13-2023 Note Date & Type Note Facility 02-13-2023 Note Lipid abnormalities are well controlled, continue crestor [facility] 02-13-2023 Note Hypertension is elev ated, currently will increase lasix to daily and increase potassium, Repeat BMP in 1 week Continue norvasc 2.5 mg Renal function normal [facility] 02-13-2023 Note Coronary artery dise ase is stable Continue GDMT- ASA, crestor and toprol continue risk factor modifications- heart healthy diet, regular exercise as tolerated and continue all medications. [facility] 02-13-2023 Note F/U with neuro [facility] 02-13-2023 Note [facility] CARDIOLOGY PROGR ESS NOTE HPI: Ozzie Gifford is a 72 y.o. female here for known cad, HTN, HPL. HPI- Patient here for 6 mo follow up CAD, hypertension, and carotid artery stenosis. She states she tries to take her lasix every other day. C/o pissing herself at night and smelly urine . Says she had another stroke on 10/20/2022 and was seen in [facility] ED. She is having trouble getting ahold of the neurology office she sees. She denies chest pain. Says she's always SOB. She is still driving. Currently denied chest pain, shortness of breath, orthopnea. States she had another stroke within the last 3 months. Admits that she was taken off of plavix r/t bleeding issues- but she can't remember who stopped it. Reports urinary frequency, burning and incontinence- states she has frequent UTI's and feels like she has UTI now. She has been trying to get appointment with Neuro/stroke service at [facility] and with her PCP DR Posey. Review of Systems Constitutional: Positive for weight loss. Cardiovascular: Positive for dyspnea on exertion and leg swelling. Respiratory: Positive for shortness of breath. Skin: Positive for color change. Genitourinary: Positive for bladder incontinence. Neurological: Positive for dizziness, headaches, light-headedness and loss of balance. All other systems reviewed and are negative. ED report 10/20/22 Previous HPI 08/28/[address] Carrillo HPI Ozzie is seen in follow-up. She is a 72-year-old woman. She was previously evaluated in cardiology clinic because of upcoming carotid endarterectomy surgery. She has prior history of stroke. Part of the evaluation she underwent cardiac catheterization in 2020 due to symptoms of angina and this showed moderate nonhemodynamically significant coronary artery disease. This was left for medical therapy. She underwent right carotid endarterectomy in April 2020. She is on dual antiplatelet therapy after the carotid endarterectomy. At visit of 03/05/2022 with nurse practitioner Meghann Fonseca, she was complaining of symptoms of chest discomfort that were suggestive of possible angina. Imdur was added. Today she reports that she has been doing reasonably well. She has no angina. She has mild dyspnea on exertion as well as lower extremity edema. No palpitations. She has atypical right-sided lower chest pain. Visit Vitals BP 170/82 (BP Location: Left arm, Patient Position: Sitting) Pulse 58 Ht 1.626 m (5' 4 ) Wt 64.4 kg (142 lb) SpO2 95% BMI 24.37 kg/m??? Smoking Status Never BSA 1.71 m??? Allergies Allergen Reactions Penicillins Rash Medications: Current Outpatient Medications on File Prior to Visit Medication Sig Dispense Refill albuterol (ProAir HFA) 90 mcg/actuation inhaler amLODIPine (Norvasc) 2.5 mg tablet Take 1 tablet (2.5 mg) by mouth in the morning. 90 tablet 3 aspirin 81 mg EC tablet in the morning. baclofen (Lioresal) 20 mg tablet baclofen 20 mg tablet clonazePAM (KlonoPIN) 0.5 mg tablet clonazepam 0.5 mg tablet dexAMETHasone (Decadron) 6 mg tablet ferrous sulfate 325 (65 Fe) MG tablet Take 65 mg by mouth with breakfast. gabapentin (Neurontin) 100 mg capsule gabapentin 100 mg capsule metoprolol succinate XL (Toprol-XL) 25 mg 24 hr tablet metoprolol succinate ER 25 mg tablet,extended release 24 hr QUEtiapine (SEROquel) 50 mg tablet quetiapine 50 mg tablet rosuvastatin (Crestor) 20 mg tablet Take 1 tablet (20 mg) by mouth in the morning. 90 tablet 3 topiramate 50 mg tablet traZODone (Desyrel) 100 mg tablet Take 150 mg by mouth. [DISCONTINUED] clopidogrel (Plavix) 75 mg tablet Take 75 mg by mouth in the morning. [DISCONTINUED] furosemide (Lasix) 20 mg tablet Take 2 tablets (40 mg) by mouth every other day. 90 tablet 3 [DISCONTINUED] isosorbide mononitrate ER (Imdur) 30 mg 24 hr tablet Take 1 tablet (30 mg) by mouth in the morning. Do not crush or chew. 90 tablet 3 [DISCONTINUED] potassium chloride ER (Micro-K) 10 mEq ER capsule Take 10 mEq by mouth in the morning. lisinopriL-hydrochlorothiazide 10-12.5 mg tablet Take 1 tablet every day by oral route for 90 days. [DISCONTINUED] doxycycline (Vibramycin) 100 mg capsule No current facility-administered medications on file prior to visit. Physical Exam: Constitutional: Appearance: Normal appearance. Without apparent distress, chronically ill, ambulates with cane HENT: Head: Normocephalic and atraumatic. Nose: Nose normal. Mouth/Throat: Mouth: Mucous membranes are moist. Eyes: Extraocular Movements: Extraocular movements intact. Conjunctiva/sclera: Conjunctivae normal. Neck: Vascular: No JVD. Cardiovascular: Rate and Rhythm: Normal rate and regular rhythm. Pulses: Dorsalis pedis pulses are 3 on the right side and 3on the left side. Posterior tibial pulses are 3 on the right side and 3 on the left side. Heart sounds: Normal heart sounds, S1 normal and S2 normal. Pulmonary: Effort: Pulmonary effort (more content not included)... [facility] 02-13-2023 Note Patient here for 6 m o follow up CAD, hypertension, and carotid artery stenosis. She states she tries to take her lasix every other day. C/o pissing herself at night and smelly urine . Says she had another stroke on 10/20/2022 and was seen in [facility] ED. She is having trouble getting ahold of the neurology office she sees. She denies chest pain. Says she's always SOB. She is still driving. Review of Systems Constitutional: Positive for weight loss. Cardiovascular: Positive for dyspnea on exertion and leg swelling. Respiratory: Positive for shortness of breath. Skin: Positive for color change. Genitourinary: Positive for bladder incontinence. Neurological: Positive for dizziness, headaches, light-headedness and loss of balance. All other systems reviewed and are negative. [facility] 10-16-2022 Evaluation note Encounter Date Diagnosis Assessment Notes Oct, Dysuria (ICD-10 - R30.0) UA without leukocytes, nitrate, blood. Patient finished antibiotic less than 1 week ago. Discussed with patient no current signs of bacterial urinary tract infection. Patient does have chronic urinary symptoms. Push fluids. Follow-up with PCP in the next week if symptoms or not resolving. Discussed may need to see urology if continues with chronic urinary symptoms. Patient verbalized understanding. [facility] Other 07-18-2023 NoteUT Cardiology - [facility] Subjective Ozzie Gifford is a 72 y.o. year old female patient being seen for Follow-up (6 month follow up ) Patient Active Problem List Diagnosis Carotid artery stenosis Cerebrovascular accident (CMS/HCC) Contusion of knee Coronary atherosclerosis Hypertension Knee joint replacement by other means Osteoarthrosis, unspecified whether generalized or localized, lower leg Reflex sympathetic dystrophy of lower limb Status post placement of implantable loop recorder Tear of medial cartilage or meniscus of knee, current Mixed hyperlipidemia Bradycardia Bilateral lower extremity edema Atypical angina (CMS/HCC) Family History Problem Relation Name Age of Onset Hypertension Mother Hypertension Father Heart attack Brother Social History Tobacco Use Smoking status: Never Smokeless tobacco: Never Substance Use Topics Alcohol use: Yes Comment: occasional HPI Ozzie is seen in follow-up. She is a 72-year-old woman. She was previously evaluated in cardiology clinic because of upcoming carotid endarterectomy surgery. She has prior history of stroke. Part of the evaluation she underwent cardiac catheterization in 2020 due to symptoms of angina and this showed moderate nonhemodynamically significant coronary artery disease. This was left for medical therapy. She underwent right carotid endarterectomy in April 2020. She is on dual antiplatelet therapy after the carotid endarterectomy. At visit of 03/05/2022 with nurse practitioner Meghann Fonseca, she was complaining of symptoms of chest discomfort that were suggestive of possible angina. Imdur was added. Today she reports that she has been doing reasonably well. She has no angina. She has mild dyspnea on exertion as well as lower extremity edema. No palpitations. She has atypical right-sided lower chest pain. Review of Systems Constitutional: Positive for weight loss. Cardiovascular: Positive for leg swelling. Skin: Positive for color change. All other systems reviewed and are negative. Objective Visit Vitals BP 162/88 (BP Location: Left arm, Patient Position: Sitting, BP Cuff Size: Adult) Pulse 64 Ht 1.626 m (5' 4 ) Wt 66.2 kg (146 lb) SpO2 98% BMI 25.06 kg/m??? Smoking Status Never BSA 1.73 m??? Physical Exam Constitutional: Appearance: She is well-developed. She is not ill-appearing. HENT: Head: Normocephalic and atraumatic. Nose: Nose normal. Eyes: General: No scleral icterus. Pupils: Pupils are equal, round, and reactive to light. Neck: Thyroid: No thyromegaly. Vascular: No JVD. Cardiovascular: Rate and Rhythm: Normal rate and regular rhythm. Pulses: Radial pulses are 2+ on the right side and 2+ on the left side. Heart sounds: Normal heart sounds. No murmur heard. No friction rub. No gallop. Pulmonary: Effort: Pulmonary effort is normal. No respiratory distress. Breath sounds: Normal breath sounds. No wheezing or rales. Chest: Chest wall: No tenderness. Abdominal: General: Bowel sounds are normal. There is no distension. Palpations: Abdomen is soft. Tenderness: There is no abdominal tenderness. Musculoskeletal: General: No swelling. Cervical back: Neck supple. Comments: Uses a cane to assist with ambulation Skin: General: Skin is warm and dry. Neurological: General: No focal deficit present. Mental Status: She is alert and oriented to person, place, and time. Psychiatric: Mood and Affect: Mood normal. Behavior: Behavior is cooperative. Judgment: Judgment normal. Allergies Allergies Allergen Reactions Penicillins Rash Medications Current Outpatient Medications: albuterol (ProAir HFA) 90 mcg/actuation inhaler, , Disp: , Rfl: aspirin 81 mg EC tablet, in the morning., Disp: , Rfl: baclofen (Lioresal) 20 mg tablet, baclofen 20 mg tablet, Disp: , Rfl: clonazePAM (KlonoPIN) 0.5 mg tablet, clonazepam 0.5 mg tablet, Disp: , Rfl: clopidogrel (Plavix) 75 mg tablet, Take 75 mg by mouth in the morning., Disp: , Rfl: dexAMETHasone (Decadron) 6 mg tablet, , Disp: , Rfl: doxycycline (Vibramycin) 100 mg capsule, , Disp: , Rfl: ferrous sulfate 325 (65 Fe) MG tablet, Take 65 mg by mouth with breakfast., Disp: , Rfl: gabapentin (Neurontin) 100 mg capsule, gabapentin 100 mg capsule, Disp: , Rfl: isosorbide mononitrate ER (Imdur) 30 mg 24 hr tablet, Take 1 tablet (30 mg) by mouth in the morning. Do not crush or chew., Disp: 90 tablet, Rfl: 3 lisinopriL-hydrochlorothiazide 10-12.5 mg tablet, Take 1 tablet every day by oral route for 90 days., Disp: , Rfl: metoprolol succinate XL (Toprol-XL) 25 mg 24 hr tablet, metoprolol succinate ER 25 mg tablet,extended release 24 hr, Disp: , Rfl: potassium chloride ER (Micro-K) 10 mEq ER capsule, Take 10 mEq by mouth in the morning., Disp: , Rfl: QUEtiapine (SEROquel) 50 mg tablet, quetiapine 50 mg tablet, Disp: , Rfl: topiramate 50 mg tablet, , Disp: , Rfl: (more content not included)...[facility]02-22-2023 Evaluation note* Encounter Date Diagnosis Assessment Notes Treatment Notes Treatment Clinical Notes Mar, Asymptomatic stenosis of left carotid artery (ICD-10 - I65.22) I did review the carotid duplex results with the patient today. Everything looks really good. This patient has very good blood supply through her carotid system. She also has antegrade vertebral arteries bilaterally. I do not believe her fall is related to her carotid blood supply at this time. We will see her back in 1 year with repeat studies for surveillance. [facility] Other 01-23-2023 NoteHeart rate stable- 69 bpm Currently remains on toprol 25 mg daily. Denied lightheadedness/dizziness or [facility] NoteF/U with vascular surgery [facility]Un[facility]-23-2023 NoteWill start imdur 30 mg daily, d/w pt about headache as side effect and this should resolve after some time of taking imdur- if H/a does not resolve then we will stop medication. D/w pt that this may lower her b/p and to call office for any concerns.[facility]01-23-2023 NoteEvaluated by Vein specialist- Dr Walsh, Dr Juarez- vascular surgery Recommended lymphedema clinic.[facility]01-23-2023 Note [facility] CARDIOLOGY PROGRESS NOTE HPI: Ozzie Gifford is a 71 y.o. female here for No chief complaint on file. Patient here for follow up echo. She's down 8# from apt last month. She had B/L LE venous reflux study 2 weeks ago, and states that physician told me it was my heart . She is referring to her LE edema. She said PCP advised her not to see her vascular surgeon in [place] yet, to see the vein specialist first. Admits occasional rt sided chest pain with radiation to back and neck at rest without dyspnea, nausea, or sweating. She has not taken any medications to resolve- it typically resolves spontaneously. Denied chest pain with exertion. Denied shortness of breath, orthopnea, palpitations, syncope or lightheadeness. Review of Systems Constitutional: Positive for weight loss. Cardiovascular: Positive for leg swelling. Skin: Positive for color change. All other systems reviewed and are negative. Visit Vitals BP 144/86 (BP Location: Left arm, Patient Position: Sitting) Pulse 69 Ht 1.626 m (5' 4 ) Wt 70.8 kg (156 lb) SpO2 99% BMI 26.78 kg/m??? Smoking Status Never BSA 1.79 m??? Allergies Allergen Reactions Penicillins Rash Medications: Current Outpatient Medications on File Prior to Visit Medication Sig Dispense Refill aspirin 81 mg EC tablet in the morning. baclofen (Lioresal) 20 mg tablet baclofen 20 mg tablet clonazePAM (KlonoPIN) 0.5 mg tablet clonazepam 0.5 mg tablet ferrous sulfate 325 (65 Fe) MG tablet Take 65 mg by mouth with breakfast. gabapentin (Neurontin) 100 mg capsule gabapentin 100 mg capsule metoprolol succinate XL (Toprol-XL) 25 mg 24 hr tablet metoprolol succinate ER 25 mg tablet,extended release 24 hr potassium chloride ER (Micro-K) 10 mEq ER capsule Take 10 mEq by mouth in the morning. QUEtiapine (SEROquel) 50 mg tablet quetiapine 50 mg tablet rosuvastatin (Crestor) 10 mg tablet Take 10 mg by mouth at bedtime. [DISCONTINUED] furosemide (Lasix) 20 mg tablet Take 20 mg by mouth in the morning. No current facility-administered medications on file prior to visit. Physical Exam: Constitutional: Appearance: Normal appearance. Without apparent distress, obese, chronically ill HENT: Head: Normocephalic and atraumatic. Nose: Nose normal. Mouth/Throat: Mouth: Mucous membranes are moist. Eyes: Extraocular Movements: Extraocular movements intact. Conjunctiva/sclera: Conjunctivae normal. Neck: Vascular: No JVD. Cardiovascular: Rate and Rhythm: Normal rate and regular rhythm. Pulses: Dorsalis pedis pulses are 3 on the right side and 3on the left side. Posterior tibial pulses are 3 on the right side and 3 on the left side. Heart sounds: Normal heart sounds, S1 normal and S2 normal. Pulmonary: Effort: Pulmonary effort is normal. Breath sounds: Normal breath sounds. Abdominal: General: Bowel sounds are normal. Palpations: Abdomen is soft. Musculoskeletal: General: Normal range of motion. Cervical back: Normal range of motion. Right lower le+ edema. Left lower le+ edema. Skin: General: Skin is warm and dry. Capillary Refill: Capillary refill takes less than 2 seconds. Neurological: General: No focal deficit present. Mental Status: She is alert and oriented to person, place, and time. Psychiatric: Mood and Affect: Mood normal. Behavior: Behavior normal. Thought Content: Thought content normal. Judgment: Judgment normal. Labs: 01/22/22 BUN 14, CR 0.80, K+ 3.0- low Liver function normal Pro BNP 552 Last lab values have been reviewed [facility]02/21/22 Echo 03/03/20 Assessment/Plan: Coronary atherosclerosis Continue risk factor modifications- heart healthy diet, regular exercise as tolerated and continue all medications. Cpntinue GDMT- ASA, crestor, toprol, will start imdur. Hypertension Hypertension is 144/86- at home she states b/p is typicaly 130/80 or less Will add imdur to regime for angina Continue toprol, lasix Mixed hyperlipidemia continue crestor 10 mg Bilateral lower extremity edema Evaluated by Vein specialist- Dr Walsh, Dr Juarez- vascular surgery Recommended lymphedema clinic. Atypical angina (CMS/HCC) Will start imdur 30 mg daily, d/w pt about headache as side effect and this should resolve after some time of taking imdur- if H/a does not resolve then we will stop medication. D/w pt that this may lower her b/p and to call office for any concerns. Carotid artery stenosis F/U with vascular surgery for monitoring Bradycardia Heart rate stable- 69 bpm Currently remains on toprol 25 mg daily. Denied lightheadedness/dizziness or syncope RTC 3-6 months or earlier if neededUnSamar[facility]01-23-2023 NotePatient here for follow up echo. She's down 8# from apt last month. She had B/L LE venous reflux study 2 weeks ago, and states that physician told me it was my heart . She is referring to her LE edema. She said PCP advised her not to see her vascular surgeon in [place] yet, to see the vein specialist first. Review of Systems Constitutional: Positive for weight loss. Cardiovascular: Positive for leg swelling. Skin: Positive for color change. All other systems reviewed and are negative.[facility] 03-05-2022 Notecontinue crestor 10 mgUnSam[facility]itan Hospital 03-05-2022 NoteHypertension is 144/86- at home she states b/p is typicaly 130/80 or less Will add imdur to regime for angina Continue toprol, lasixUnSamaritan Hospital01-23-2023 NoteContinue risk factor modifications- heart healthy diet, regular exercise as tolerated and continue all medications. Cpntinue GDMT- ASA, crestor, toprol, will start imdur.[facility]10-18-2022 NoteED Procedure Charges Entered On: 11/28/2021 17:45 EDT Performed On: 11/28/2021 17:44 EDT by Heena Crawford [employer] ([id number]) Sim Rep Sca to 2.5 [id number] : 1 Heena Crawford - 11/28/2021 17:[facility]ED Nursing Discharge Summary Entered On: 11/24/2021 17:29 EDT Performed On: 11/24/2021 17:29 EDT by Fabio BATISTA, Jennifer DAVENPORT Information [id number] ED IV's : No IV ED IV Site Assessment : No IV ED Vitals Completed : Yes ED Final Assessment Completed : Yes ED Progress Note Completed : Yes Complete all PRN/Pain response forms? : Yes ED Disassociate Patient from Monitor : N/A Updated Depart Time : Yes ED Belongings sent w patient [id number] : Not applicable Jennifer Mccarthy RN - 11/24/2021 17:29 EDT Education TeachBack Methodology : TeachBack, Demonstration, Explanation, Printed Material Barriers to Learning : None evident Jennifer Mccarthy RN - 11/24/2021 17:29 EDT Post-Hospital Education Adult Grid Importance of Follow-Up Visits : Verbalizes understanding, Demonstrates When to Call Health Care Provider : Verbalizes understanding, Demonstrates Jennifer Mccarthy RN - 11/24/2021 17:29 EDT ED Assistance Summary Assistance Given? : No Jennifer Mccarthy RN - 11/24/2021 17:29 EDT [facility]10-14-2022 NotePROCEDURE: CT CHEST WITHOUT IV CONTRAST HISTORY: WHAT SYMPTOMS ARE YOU EXPERIENCING? - PT FELL AND HIT HEAD, PAIN, HX OF STROKE 2019, SOB, CHEST PAIN PAIN COMPARISON: None TECHNIQUE: Multiple contiguous axial CT images of the chest were obtained without the administration of intravenous contrast. Sagittal and coronal reconstructions were performed. All CT scans at [facility] use dose modulation, iterative reconstruction, and/or weight based dosing when appropriateto reduce radiation dose to as low as reasonably achievable. FINDINGS: Mediastinum: The heart and great vessels appear unremarkable aside from atherosclerotic aortic and coronary arterial calcifications. There is no pericardial effusion. No evidence of mediastinal lymphadenopathy. Lungs: The lung parenchyma appears unremarkable. No evidence of focal consolidation. There is a 3 mm right lobe subpleural pulmonary nodule on image 17. There is a 4 mm subpleural right lower lobe pulmonary nodule on image 56 posteriorly. There is another 4 mm right lower lobe subpleural nodule adjacent to the right major fissure on image 44. No other soft tissue nodules are seen. No pleural effusion or pneumothorax identified. Upper Abdomen: The visualized upper abdominal contents reveal no acute process. There are post surgical changes involving the stomach. Bones and Soft Tissues: No acute osseous abnormalities are identified. The soft tissues are unremarkable. IMPRESSION: No acute cardiopulmonary process or traumatic injury of the chest is identified. 3 subcentimeter nodules seen in the right lung each measuring 3-4 mm in diameter. See below for follow-up recommendations. [facility] MANDATED QUALITY DATA - FOLLOW-UP IMAGING FOR INCIDENTALLY DETECTED PULMONARY NODULES ACCORDINGTO RECOMMENDED GUIDELINES - MEASURE 364 [facility] Best Practice Guidelines for Incidental Lung Nodules on CT MULTIPLE SOLID Low Risk < 6 mm: No follow up > or = 6 mm: 3-6 months, then optional 18-24 months High Risk < 6 mm: 12 months if upper lobe or suspicious morphology, otherwise no follow up > or = 6 mm: 3-6 months, then 18-24 months GROUND GLASS < 6 mm: 2 and 4 years if suspicious morphology, otherwise no follow up > or = 6 mm: 6-12 months, then Q 2 years for 5 years if stable. If it grows, resect it. NOTE: * These criteria do not apply to pts < 35 years old, immunocompromised, or known primary malignancy. * Low risk patients include individuals with minimal or absent history of smoking and w/o other known risk factors. * High risk patients include those with history of smoking, emphysema, pulmonary fibrosis, family history of lung cancer, and/or other known risk factors. * Reference: Radiology. 2017 Boris; 241(1):228-243, Jennifer Guidelines for Management of Incidental Pulmonary Nodules on CT Electronically signed by: Ismeal Aguilar MD 11/24/2021 1:28 PM CDT Technologist: WENDY CHAVEZ Dictated By: ISMAEL AGUILAR MD Signed By: ISMAEL AGUILAR MD Signed Out: 11/24/21 14:28:17[facility]10-12-2022 Consult note Author Shavon Leos [facility] November 22, 2021 11:54am Note Date/Time November 22, 2021 1 1:45am [facility] [address] [place] [address] Cardiology Consult Note Signed Patient: Ozzie Gifford MR#: [id number] : 1950 Acct:[id number] Age/Sex: 71 / F Adm Date: 2 Loc: Room: [address] [place] [address] Type: ADM IN Attending Dr: Anna Valladares MD Copies to: MD Shavon Cosby MD Shaikh Fawwad, MD~ Cardiology HPI History of Present Illness Consult Date: 11/22/21 Reason for Consult: Cardiac consultation requested for bradycardia HPI: Ms. Gifford is a 71 year old female who was with family because of increasing weakness, recurrent fall and confusion. Patient was admitted. Was noted to be bradycardic. Her chronic metoprolol dose was held. Over the last 48 hours the patient mental status and clinical condition has improved. At the time my evaluation the patient appears appropriate. She reported to me that she has been under a lot of stress. Apparently his daughter had been diagnosed with terminal illness. Family brought her because of increasing confusion and weakness. She has been on long- term metoprolol therapy. The patient report in the past she underwent work-up by cardiology in [place]. She did undergo an implantable loop recorder because of unexplained neurologic symptoms. This was removed. Patient reported no arrhythmia were observed. At the time of evaluation the patient appears to be hemodynamically stable and her bradycardia had resolved. Review of Systems Review of Systems All other systems reviewed & are negative unless noted below or in HPI Constitutional Constitutional: Reports fatigue and Reports weakness Eyes Eyes: Reports system reviewed and no additional complaints, except as documented ENT Ears, Nose, Mouth, and Throat: Reports system reviewed and no additional complaints, except as documented Cardiovascular Cardiovascular: Reports system reviewed and no additional complaints, except as documented Respiratory Respiratory: Reports system reviewed and no additional complaints, except as documented Gastrointestinal Gastrointestinal: Reports system reviewed and no additional complaints, except as documented Genitourinary Genitourinary: Reports system reviewed and no additional complaints, except as documented Musculoskeletal Musculoskeletal: Reports system reviewed and no additional complaints, except asdocumented Neurologic Neurologic: Reports system reviewed and no additional complaints, except as documented Psychiatric Psychiatric: Reports system reviewed and no additional complaints, except as documented Endocrine Endocrine: Reports system reviewed and no additional complaints, except as documented Hematologic/Lymphatic Hematologic/Lymphatic: Reports system reviewed and no additional complaints, except as documented Allergic/Immunologic Allergic/Immunologic: Reports system reviewed and no additional complaints, except as documented PMFSH Vaccinated for COVID-19?: Unknown Medical History Amputated toe of right foot Anemia Arthritis Carotid stenosis Dystonia History of blood clot in brain Per patient and spouse surgery done with removal of 90% of the clot Hyperlipemia Hypertension Stroke x2 Traumatic brain injury Surgical History H/O bariatric surgery 2005 H/O breast surgery left lumpectomy H/O foot surgery bilateral neuromas H/O left knee surgery H/O: hysterectomy History of appendectomy History of cardiac catheterization 2020 [facility] History of knee replacement right knee replacement x5 History of loop recorder Hx of cholecystectomy Family History Father Prostate cancer Bone cancer Diabetes mellitus, type 2 Mother Brain cancer Mother Breast cancer Son Down's syndrome Daughter Lung cancer Brother Myocardial infarct Diabetes mellitus, type 2 Social History Smoking Status: Former smoker Tobacco Type: cigarettes Substance Use Type: None Meds Medications and Allergies Allergies Penicillins Allergy (Verified 11/21/21 04:05) Rash Home Medications baclofen 20 mg tablet 20 mg PO TID muscle spams 04/05/18 [History Confirmed 11/21/21] clonazepam 0.5 mg tablet 0.5 mg PO BID 12/12/18 [History Confirmed 11/21/21] clopidogrel 75 mg tablet (Plavix) 75 mg PO QAM CVA 12/12/18 [History Confirmed 11/21/21] rosuvastatin 10 mg tablet (Crestor) 10 mg PO QHS hyperlipidemia 12/12/18 [History Confirmed 11/21/21] acetaminophen 325 mg tablet 325 - 650 mg PO DAILY PRN Headache 03/26/19 [History Confirmed 11/21/21] lisinopril 10 mg-hydrochlorothiazide 12.5 mg tablet 1 tab PO QAM htn 03/26/19 [History Confirmed 11/21/21] metoprolol succinate 25 mg tablet,extended release 24 hr 25 mg PO QAM htn 03/26/19 [History Confirmed 11/21/21] quetiapine 50 mg tablet 50 mg PO QHS insomnia 03/26/19 [History Confirmed 11/21/21] aspirin 81 mg tablet,delayed release 81 mg PO DAILY CVA prevention 03/23/20 [History Confirmed 11/21/21] cyanocobalamin (vitamin B-12) 2,000 mcg tablet,extended release (Vitamin B-12 ER) 2,000 mcg PO DAILY 03/23/20 [History Confirmed 11/21/21] ferrous sulfate 325 mg (65 mg iron) tablet (FeroSul) 325 mg PO DAILY 11/21/21 [History Confirmed 11/21/21] furosemide 20 mg tablet 20 mg PO QAM 11/21/21 [History Confirmed 11/21/21] topiramate 50 mg tablet 50 mg PO DAILY 11/21/21 [History Confirmed 11/21/21] Exam Physical Exam Vital Signs: Temp Pulse Resp BP Pulse Ox O2 Del Method 97.7 F 94 H 14 159/71 H 97 Room Air 11/22/21 08:30 11/22/21 08:30 11/22/21 08:30 11/22/21 08:30 11/22/21 08:30 11/22/21 08:59 Const General: cooperative, comfortable, no acute distress and well developed HEENT Head: atraumatic Mouth: oral mucosae normal Eyes General: appearance normal, both eyes and all related structures Pupils: PERRL Neck Neck: normal visual inspection, supple and no lymphadenopathy noted Neck mass: No Thyroid: thyroid normal Carotids: normal carotid upstroke Chest Chest palpation & inspection: normal inspection of the chest Resp Effort & Inspection: normal respiratory effort Auscultation: clear to auscultation bilaterally Cardio Palpation: normal PMI Rate: regular rate Rhythm: regular rhythm Heart Sounds: S1 normal and S2 normal GI Palpation: soft and no hepatosplenomegaly Percussion: normal to percussion Auscultation: normal bowel sounds Skin General: no rashes or lesions noted and dry skin Neuro General: patient alert, patient awake, patient oriented x3, tone normal and moves all extremities Extrem General: full ROM, capillary refill normal and no clubbing, cyanosis or edema Psych Mental Status: mental status grossly normal Results Labs CBC & CMP: 11/22/21 06:01 11/22/21 06:01 Lab results: Cardiac Enzymes 11/22/21 Range/Units 06:01 AST 15 (10-42) U/L CBC 11/22/21 Range/Units 06:01 RBC 4.43 (3.60-5.00) x10E6/uL Hgb 12.1 (11.8-15.4) g/dL Hct 36.9 (34.0-46.4) % Plt Count 184 (150-450) x10E3/uL Neut # (Auto) 2.8 (1.8-7.7) x10E3/uL Lymph # (Auto) 1.2 (1.00-4.8) x10E3/uL Towns # (Auto) 0.4 (0.0-0.8) x10E3/uL Eos # (Auto) 0.2 (0.0-0.45) x10E3/uL Baso # (Auto) 0.0 (0.0-0.2) x10E3/uL Comprehensive Metabolic Panel 11/22/21 Range/Units 06:01 Sodium 147 H (136-146) mmol/L Potassium 3.1 L (3.5-5.1) mmol/L Chloride 115 H (95-114) mmol/L Carbon Dioxide 22.9 (22.0-30.0) mmol/L BUN 28 H (9-23) mg/dL Creatinine 1.10 H D (0.44-1.03) mg/dL Glucose 93 (70-100) mg/dL Calcium 8.9 (8.2-10.2) mg/dL AST 15 (10-42) U/L ALT 16 (10-60) U/L Alkaline Phosphatase 70 (32-92) U/L Total Protein 5.4 L (6.1-7.9) gm/dL Albumin 3.0 L (3.2-5.5) gm/dL Intake and Output 11/21/21 11/22/21 11/22/21 23:59 07:59 15:59 Intake Total 1250 / 2910 1450 / 1450 Output Total 450 / 1075 450 / 450 Balance 800 / 1835 1000 / 1000 Intake: IV 1000 / 2410 1000 / 1000 Sodium Chloride 0.9% 1,000 ml 1 1000 / 1000 1000 / 1000 ,000 ml @ 100 mls/hr IV .Q10H [facility] Rx#:[id number] Oral 250 / 500 450 / 450 Output: Urine Amount (Catheter) 450 / 450 450 / 450 [place] 450 / 450 450 / 450 Other: # Unmeasured Voids 1 # Bowel Movements 1 2 Weight 76.6 kg 78.6 kg Date of Last Bowel Movement 11/21/21 11/22/21 11/22/21 Patient Weight 11/22/21 23:59 Weight 78.6 kg A&P - Cardiology (1) Symptomatic bradycardia: Assessment/Problem Details: Patient appears to have symptomatic bradycardia this is clearly due to metoprolol. This has resolved since metoprolol was discontinued. Her mental status appears to have improved. Patient reported prior history and work-up forarrhythmia. She did have an implantable loop recorder had seen cardiology in [place] Code(s): R00.1 - Bradycardia, unspecified (2) AMS (altered mental status): Code(s): R41.82 - Altered mental status, unspecified (3) HTN, goal below 140/90: Code(s): I10 - Essential (primary) hypertension (4) HLD (hyperlipidemia): Code(s): E78.5 - Hyperlipidemia, unspecified (5) H/O traumatic brain injury: Code(s): Z87.820 - Personal history of traumatic brain injury Plan 1. Discontinue metoprolol 2. Cardiac juan patient can be discharged home 3. Patient will continue his long-term follow-up with his primary traffic control signaler in [place] Documented By: Shavon Leos MD 11/22/21 1143 Signed By: <Electronically signed by MD Shavon Leos> 11/22/21 1154 [facility] Work Phone: 1(205) 551-325910-12-2022 Progress note Author Anna Valladares [facility] November 22, 2021 8:17am Note Date/Time November 21, 2021 1 2:10pm [facility] [address] [place] [address] Hospitalist Progress Note Signed Patient: Ozzie Gifford MR#: [id number] : 1950 Acct:[id number] Age/Sex: 71 / F Adm Date: 2 Loc: Room: [address] [place] [address] Type: ADM IN Attending Dr: Anna Valladares MD Copies to: ~ Date of Service: 11/21/2021 Subjective Subjective Narrative: Patient seen and examined. cartside, currently still roomed in down in ER awaiting nursing floor availability. She offers no complaint. Keeps talkingof her daughter in [place] dying from cancer currently. thinks this is contributory with decreased intake. He indicates her mentation is improved but not yet baseline. Exam Physical Exam Vital Signs: Temp Pulse Resp BP Pulse Ox O2 Del Method 96.9 F L 69 16 152/65 H 100 Room Air 11/21/21 11:24 11/21/21 11:24 11/21/21 11:24 11/21/21 11:24 11/21/21 11:24 11/21/21 11:24 Narrative: alert, on cart, no distress at rest oriented x2, follows command for exam RRR - currently SR 60s on tele, no abnormal heart tones dimin without wheeze or rhonchi, RA, speaks full sentences trace LLE edema, calves nontender Objective Lab Results CBC & Chem 7: 11/21/21 04:12 11/21/21 04:12 Microbiology Results Microbiology 11/21/21 05:48 Nasopharyngeal SARS-CoV-2, Influenza & RSV (PCR) - Final 11/21/21 05:40 Nasal SARS Antigen (LFIA) - Final ABG Interpretation ABG results: 11/21/21 06:15 ABG pH 7.40 ABG pCO2 37.8 ABG pO2 82.7 ABG HCO3 22.6 L ABG Total CO2 23.8 ABG O2 Saturation 95.9 ABG O2 Content 7.1 ABG Base Excess -1.9 Meds Allergies and Active Meds Allergies Penicillins Allergy (Verified 11/21/21 04:05) Rash Active Meds: Active Medications Generic Name Dose Route Start Last Admin Trade Name Freq PRN Reason Stop Dose Admin Enoxaparin Sodium 30 mg 11/21/21 10:00 11/21/21 11:47 Enoxaparin 30 Mg/0.3 Ml Syringe SUBCUT 11/21/22 09:59 30 mg DAILY@10 DEBBY Administration Lactated Ringer's 1,000 mls @ 100 mls/hr 11/21/21 05:30 11/21/21 07:30 Lactated Ringers IV 11/21/22 05:29 Infused .Q10H DEBBY Infusion Sodium Chloride 1,000 mls @ 100 mls/hr 11/21/21 06:30 11/21/21 07:30 0.9% Sodium Chloride 1,000 Ml IV 11/21/22 06:29 100 mls/hr .Q10H DEBBY Administration Potassium Chloride 20 meq/ 260 mls @ 130 mls/hr 11/21/21 06:28 11/21/21 11:47 Sodium Chloride IV 11/21/22 06:27 130 mls/hr DAILY PRN Administration Hypokalemia Potassium Chloride 40 meq/ 520 mls @ 130 mls/hr 11/21/21 06:28 Sodium Chloride IV 11/21/22 06:27 DAILY PRN Hypokalemia Magnesium Sulfate 2 gm in 50 mls @ 25 mls/hr 11/21/21 06:28 Magnesium Sulf 2gm-*Swfi* IV 11/21/22 06:27 DAILY PRN Magnesium Level < 1.5 Ceftriaxone Sodium 1 gm in 50 mls @ 100 mls/hr 11/21/21 06:30 11/21/21 07:47 Rocephin IV 100 mls/hr Q24H DEBBY Administration Ondansetron HCl 4 mg 11/21/21 06:28 Ondansetron 4 Mg/2 Ml Vial IV-PUSH 11/21/22 06:27 Q8H PRN Nausea And Vomiting Sodium Chloride 0 ml 11/21/21 04:05 Sodium Chloride 0.9 % 10 Ml Syringe IV-PUSH 11/21/22 04:04 PRN PRN Flush A&P - Hospitalist Assessment/Plan (1) JASEN (acute kidney injury): (2) Symptomatic bradycardia: Plan Acute metabolic encephalopathy Symptomatic bradycardia JASEN UTI ? Multifactorial including uremia/polypharmacy/bradycardia ? CT head-atrophy and chronic ischemic changes, no acute abnormality ? Ceftriaxone, follow urine culture, blood cultures pending ? Patient received 2 doses of atropine in ED ? hold metoprolol - cardiology consultation with bradycardia ? IVF, hold nephrotoxic meds Lisinopril/ HCTZ & furosemide ? TSH and free T4 within normal limits ? echo-EF 60-65%, RVSP 36 consistent mild PHT ? Hold her baclofen/Clonazepam/ Quetiapine ? PT/OT High B12 -lab excess of 7500, reduce home B12 supplement, does have history gastric bypass and will be chronically deficient Chronic Conditions 1. Hx CVA- ASA/ Clopidogrel, Rosuvastatin 2. HTN- Lisinopril HCTZ Furosemide on hold with JASEN, Metoprolol on hold with bradycardia 3. Hx TBI/ dystonia Documented By: Jessica Rodriguez, ANP-BC 2 1210 Signed By: <Electronically signed by ANP-BC Jessica Rodriguez> 11/21/21 1424 <Electronically signed by Anna Valladares MD> 11/22/21 0817 [facility] Work Phone: [phone]) 705-542710-11-2022 History and physical note Author Ashleigh Rashid [facility] November 21, 2021 6:39am Note Date/Time November 21, 2021 6 :39am [facility] [address] [place] [address] Hospitalist H&P Signed Patient: Ozzie Gifford MR#: [id number] : 1950 Acct:[id number] Age/Sex: 71 / F Adm Date: 2 Loc: ER Room: Type: [facility] ER Attending Dr: Copies to: MD Rafiq Torre DO Shaikh Fawwad, MD~ HPI DATE OF EXAMINATION: 11/21/21 CHIEF COMPLAINT: Confusion HISTORY OF PRESENT ILLNESS: Patient is 71-year-old female with history of hypertension/anxiety and other medical problems who was brought into the hospital by her secondary to generalized weakness/recurrent falls and confusion with minimal response since yesterday. The patient is normally active/alert and oriented x3, the patient was getting a bit confused on Saturday for visitors from out of town and she was doing great however after that feast the patient became to be more weak and confused, on presentation the patient was found to be bradycardic, blood work was consistent with mild hyperkalemia and acute kidney injury, UA was concerning for UTI, on encounter the patient was in bed she is alert/easily arousable however she is disoriented x3, vital signs on the monitor were completely normal, the patient was given 2 doses of atropine done in the ER and her EKG was consistent with normal sinus rhythm, the patient's does not think that the patient did not overdose on metoprolol Review of Systems Review of Systems Unobtainable due to mental status PMFSH Vaccinated for COVID-19?: Unknown Medical History (Updated 11/21/21 @ 05:19 by Rafiq Bahena DO) Amputated toe of right foot Anemia Arthritis Carotid stenosis Dystonia History of blood clot in brain Per patient and spouse surgery done with removal of 90% of the clot Hyperlipemia Hypertension Stroke x2 Traumatic brain injury Surgical History H/O bariatric surgery 2005 H/O breast surgery left lumpectomy H/O foot surgery bilateral neuromas H/O left knee surgery H/O: hysterectomy History of appendectomy History of cardiac catheterization 2020 [facility] History of knee replacement right knee replacement x5 History of loop recorder Hx of cholecystectomy Family History Father Prostate cancer Bone cancer Diabetes mellitus, type 2 Mother Brain cancer Mother Breast cancer Son Down's syndrome Daughter Lung cancer Brother Myocardial infarct Diabetes mellitus, type 2 Social History Smoking Status: Unknown if ever smoked Tobacco Type: cigarettes Substance Use Type: Unknown Meds Medications and Allergies Allergies Penicillins Allergy (Verified 11/21/21 04:05) Rash Home Medications baclofen 20 mg tablet 20 mg PO TID muscle spams 04/05/18 [History Confirmed 03/31/21] clonazepam 0.5 mg tablet 0.5 mg PO BID 12/12/18 [History Confirmed 03/31/21] clopidogrel 75 mg tablet (Plavix) 75 mg PO QAM CVA 12/12/18 [History Confirmed 03/31/21] rosuvastatin 10 mg tablet (Crestor) 10 mg PO QHS hyperlipidemia 12/12/18 [History Confirmed 03/31/21] acetaminophen 325 mg tablet 325 - 650 mg PO DAILY PRN Headache 03/26/19 [History Confirmed 03/31/21] lisinopril 10 mg-hydrochlorothiazide 12.5 mg tablet 1 tab PO QAM htn 03/26/19 [History Confirmed 03/31/21] metoprolol succinate 25 mg tablet,extended release 24 hr 25 mg PO QAM htn 03/26/19 [History Confirmed 03/31/21] quetiapine 50 mg tablet 50 mg PO QHS insomnia 03/26/19 [History Confirmed 03/31/21] cetirizine 10 mg tablet (All Day Allergy (cetirizine)) 10 mg PO DAILY allergy symptoms 02/18/20 [History Confirmed 03/31/21] aspirin 81 mg tablet,delayed release 81 mg PO DAILY CVA prevention 03/23/20 [History Confirmed 03/31/21] cyanocobalamin (vitamin B-12) 2,000 mcg tablet,extended release (Vitamin B-12 ER) 2,000 mcg PO DAILY 03/23/20 [History Confirmed 03/31/21] Exam Physical Exam Vital Signs: Temp Pulse Resp BP Pulse Ox O2 Del Method 95.7 F L 67 15 116/57 L 98 Room Air 11/21/21 03:56 11/21/21 05:45 11/21/21 05:45 11/21/21 05:45 11/21/21 05:45 11/21/21 05:45 Narrative: General: patient is alert/easily arousable however does not demonstrate HEENT: head atraumatic, normocephalic, moist mucous membranes, normal nose and ears, no throat lesions, normal conjunctiva Neck: supple no masses, no lymphadenopathy CVS: regular rate and rhythm, no murmurs or gallops Respiratory: clear to auscultation bilaterally, no wheezing or crackles, symmetric expansion GI: soft, nondistended, nontender, positive bowel sounds with no organomegaly Extremity: moves all extremities, no restrictions of movements, no calf tenderness, no edema Neuro: alert and disoriented x3, normal speech, normal motor function Skin: dry, intact no rashes or lesions Results Lab Results Labs: Laboratory Last Values Corrected WBC 5.3 X10E3/uL (3.8-11.6) 11/21/21 04:12 Uncorrected WBC Count 5.3 x10E3/uL (4.5-11.0) 11/21/21 04:12 RBC 4.31 x10E6/uL (3.60-5.00) 11/21/21 04:12 Hgb 11.6 g/dL (11.8-15.4) L 11/21/21 04:12 Hct 35.6 % (34.0-46.4) 11/21/21 04:12 MCV 82.5 fl (80-100) 11/21/21 04:12 MCH 26.9 pg (24.7-34.3) 11/21/21 04:12 MCHC 32.6 g/dL (32.0-35.0) 11/21/21 04:12 RDW 20.4 % (11.9-15.3) H 11/21/21 04:12 Plt Count 140 x10E3/uL (150-450) L 11/21/21 04:12 MPV 9.6 fl (6.3-10.7) 11/21/21 04:12 Neut % (Auto) 65.2 % (.) 11/21/21 04:12 Lymph % (Auto) 20.4 % (.) 11/21/21 04:12 Towns % (Auto) 9.9 % (.) 11/21/21 04:12 Eos % (Auto) 3.7 % (.) 11/21/21 04:12 Baso % (Auto) 0.8 % (.) 11/21/21 04:12 Neut # (Auto) 3.5 x10E3/uL (1.8-7.7) 11/21/21 04:12 Lymph # (Auto) 1.1 x10E3/uL (1.00-4.8) 11/21/21 04:12 Towns # (Auto) 0.5 x10E3/uL (0.0-0.8) 11/21/21 04:12 Eos # (Auto) 0.2 x10E3/uL (0.0-0.45) 11/21/21 04:12 Baso # (Auto) 0.0 x10E3/uL (0.0-0.2) 11/21/21 04:12 Nucleated RBC % (auto) 0.0 % (0-0.5) 11/21/21 04:12 Sample Site Left radial 11/21/21 06:15 ABG pH 7.40 (7.35-7.45) 11/21/21 06:15 ABG pCO2 37.8 mmHg (35.0-45.0) 11/21/21 06:15 ABG pO2 82.7 mmHg (80.0-100.0) 11/21/21 06:15 ABG HCO3 22.6 mmol/L (23.0-29.0) L 11/21/21 06:15 ABG Total CO2 23.8 mmol/L (23.0-27.0) 11/21/21 06:15 ABG O2 Saturation 95.9 % (95.0-100.0) 11/21/21 06:15 ABG O2 Content 7.1 mmol/L (6.6-9.7) 11/21/21 06:15 ABG Base Excess -1.9 mmol/L (-3.0-3.0) 11/21/21 06:15 FiO2 21 % 11/21/21 06:15 Critical Value 11/21/21 06:15 PHA Creatinine Clear 22.98 11/21/21 04:12 Sodium 142 mmol/L (136-146) 11/21/21 04:12 Potassium 3.1 mmol/L (3.5-5.1) L 11/21/21 04:12 Chloride 107 mmol/L (95-114) 11/21/21 04:12 Carbon Dioxide 23.5 mmol/L (22.0-30.0) 11/21/21 04:12 Anion Gap 14.6 mEq/L (6.0-15.0) 11/21/21 04:12 BUN 49 mg/dL (9-23) H 11/21/21 04:12 Creatinine 2.08 mg/dL (0.44-1.03) H 11/21/21 04:12 Est GFR ( Amer) 28 mL/Min 11/21/21 04:12 Est GFR (Non-Af Amer) 23 mL/Min 11/21/21 04:12 Glucose 124 mg/dL (70-100) H 11/21/21 04:12 POC Glucose 134 mg/dl 11/21/21 04:05 POC Glucose Comment Glu2: cleaned meter 11/21/21 04:05 Calcium 9.1 mg/dL (8.2-10.2) 11/21/21 04:12 Total Bilirubin 0.3 mg/dL (0.3-1.2) 11/21/21 04:12 AST 19 U/L (10-42) 11/21/21 04:12 ALT 17 U/L (10-60) 11/21/21 04:12 Alkaline Phosphatase 74 U/L (32-92) 11/21/21 04:12 Troponin I High Sens 6 pg/mL (0-15) 11/21/21 04:12 Total Protein 5.5 gm/dL (6.1-7.9) L 11/21/21 04:12 Albumin 3.4 gm/dL (3.2-5.5) 11/21/21 04:12 Globulin 2.1 gm/dL 11/21/21 04:12 Albumin/Globulin Ratio 1.6 11/21/21 04:12 Free T4 0.68 ng/dL (0.61-1.12) 11/21/21 04:12 TSH 3rd Generation 2.40 uIU/mL (0.45-5.33) 11/21/21 04:12 Urine Color Yellow (Yellow) 11/21/21 04:20 Urine Appearance Clear (Clear) 11/21/21 04:20 Urine pH 5.5 (5.0-9.0) 11/21/21 04:20 Ur Specific [place] 1.010 (1.001-1.030) 11/21/21 04:20 Urine Protein Negative mg/dL (Negative) 11/21/21 04:20 Urine Glucose (UA) Normal mg/dL (Normal) 11/21/21 04:20 Urine Ketones Negative (Negative) 11/21/21 04:20 Urine Occult Blood Negative (Negative) 11/21/21 04:20 Urine Nitrite Positive (Negative) H 11/21/21 04:20 Urine Bilirubin Negative (Negative) 11/21/21 04:20 Urine Urobilinogen Normal mg/dL (Normal) 11/21/21 04:20 Ur Leukocyte Esterase 1+ (Negative) H 11/21/21 04:20 Urine RBC 0-1 /HPF (0-4) 11/21/21 04:20 Urine WBC 3-4 /HPF (0-4) 11/21/21 04:20 Ur Squamous Epith Cells 1-2 /HPF (0-2) 11/21/21 04:20 Urine Bacteria 2+ (None Seen) H 11/21/21 04:20 Hyaline Casts 0-8 /LPF (0-8) 11/21/21 04:20 Urine Opiates Screen Negative (Negative) 11/21/21 04:20 Ur Barbiturates Screen Negative (Negative) 11/21/21 04:20 Ur Phencyclidine Scrn Negative (Negative) 11/21/21 04:20 Ur Amphetamines Screen Negative (Negative) 11/21/21 04:20 U Benzodiazepines Scrn Negative (Negative) 11/21/21 04:20 Urine Cocaine Screen Negative (Negative) 11/21/21 04:20 U Marijuana (THC) Screen Negative (Negative) 11/21/21 04:20 Ethyl Alcohol < 5 mg/dL 11/21/21 04:12 % Ethyl Alcohol TNP 11/21/21 04:12 SARS Antigen (LFIA) Negative (Negative) 11/21/21 05:40 Microbiology Results Micro: Microbiology - Results from entire visit 11/21/21 05:40 Nasal SARS Antigen (LFIA) - Final ABG Interpretation ABG results: 11/21/21 06:15 ABG pH 7.40 ABG pCO2 37.8 ABG pO2 82.7 ABG HCO3 22.6 L ABG Total CO2 23.8 ABG O2 Saturation 95.9 ABG O2 Content 7.1 ABG Base Excess -1.9 A&P - Hospitalist Assessment/Plan (1) Impaired mobility and activities of daily living: (2) JASEN (acute kidney injury): (3) Symptomatic bradycardia: Plan Assessment and plan *Acute metabolic encephalopathy *Symptomatic bradycardia *Acute kidney injury due to prerenal azotemia and nephrotoxins ? Multifactorial including uremia/polypharmacy/bradycardia ? Admit to the floor on telemetry ? CT of the head is reportedly negative, patient reports opening ? UA is consistent with a UTI ? Patient received 2 doses of atropine in ED ? Patient is chronically hemodynamically stable ? Continue to hold metoprolol ? Continue with IV fluids around abdominal ? Hold nephrotoxic agent including her home dose lisinopril?hydrochlorothiazide ? TSH and free T4 within normal limits ? We will get an echo ? Start patient on Rocephin ? Blood and urine cultures ? Hold her baclofen/Xanax ? PT/OT ? We will check B12 *DVT prophylaxis with Lovenox Documented By: Ashleigh Cruz MD 2 0634 Signed By: <Electronically signed by Ashleigh Cruz MD> 11/21/21 0639 [facility] Work Phone: [phone]) 259-393810-11-2022 History and physical note Author Ashleigh Rashid [facility] November 21, 2021 6:39am Note Date/Time November 21, 2021 6 :39am [facility] [address] [place] [address] Hospitalist H&P Signed Patient: Ozzie Gifford MR#: [id number] : 1950 Acct:[id number] Age/Sex: 71 / F Adm Date: 2 Loc: ER Room: Type: [facility] ER Attending Dr: Copies to: MD Rafiq Torre DO Shaikh Fawwad, MD~ HPI DATE OF EXAMINATION: 11/21/21 CHIEF COMPLAINT: Confusion HISTORY OF PRESENT ILLNESS: Patient is 71-year-old female with history of hypertension/anxiety and other medical problems who was brought into the hospital by her secondary to generalized weakness/recurrent falls and confusion with minimal response since yesterday. The patient is normally active/alert and oriented x3, the patient was getting a bit confused on Saturday for visitors from out of town and she was doing great however after that feast the patient became to be more weak and confused, on presentation the patient was found to be bradycardic, blood work was consistent with mild hyperkalemia and acute kidney injury, UA was concerning for UTI, on encounter the patient was in bed she is alert/easily arousable however she is disoriented x3, vital signs on the monitor were completely normal, the patient was given 2 doses of atropine done in the ER and her EKG was consistent with normal sinus rhythm, the patient's does not think that the patient did not overdose on metoprolol Review of Systems Review of Systems Unobtainable due to mental status PMFSH Vaccinated for COVID-19?: Unknown Medical History (Updated 11/21/21 @ 05:19 by Rafiq Bahena DO) Amputated toe of right foot Anemia Arthritis Carotid stenosis Dystonia History of blood clot in brain Per patient and spouse surgery done with removal of 90% of the clot Hyperlipemia Hypertension Stroke x2 Traumatic brain injury Surgical History H/O bariatric surgery 2005 H/O breast surgery left lumpectomy H/O foot surgery bilateral neuromas H/O left knee surgery H/O: hysterectomy History of appendectomy History of cardiac catheterization 2020 [facility] History of knee replacement right knee replacement x5 History of loop recorder Hx of cholecystectomy Family History Father Prostate cancer Bone cancer Diabetes mellitus, type 2 Mother Brain cancer Mother Breast cancer Son Down's syndrome Daughter Lung cancer Brother Myocardial infarct Diabetes mellitus, type 2 Social History Smoking Status: Unknown if ever smoked Tobacco Type: cigarettes Substance Use Type: Unknown Meds Medications and Allergies Allergies Penicillins Allergy (Verified 11/21/21 04:05) Rash Home Medications baclofen 20 mg tablet 20 mg PO TID muscle spams 04/05/18 [History Confirmed 03/31/21] clonazepam 0.5 mg tablet 0.5 mg PO BID 12/12/18 [History Confirmed 03/31/21] clopidogrel 75 mg tablet (Plavix) 75 mg PO QAM CVA 12/12/18 [History Confirmed 03/31/21] rosuvastatin 10 mg tablet (Crestor) 10 mg PO QHS hyperlipidemia 12/12/18 [History Confirmed 03/31/21] acetaminophen 325 mg tablet 325 - 650 mg PO DAILY PRN Headache 03/26/19 [History Confirmed 03/31/21] lisinopril 10 mg-hydrochlorothiazide 12.5 mg tablet 1 tab PO QAM htn 03/26/19 [History Confirmed 03/31/21] metoprolol succinate 25 mg tablet,extended release 24 hr 25 mg PO QAM htn 03/26/19 [History Confirmed 03/31/21] quetiapine 50 mg tablet 50 mg PO QHS insomnia 03/26/19 [History Confirmed 03/31/21] cetirizine 10 mg tablet (All Day Allergy (cetirizine)) 10 mg PO DAILY allergy symptoms 02/18/20 [History Confirmed 03/31/21] aspirin 81 mg tablet,delayed release 81 mg PO DAILY CVA prevention 03/23/20 [History Confirmed 03/31/21] cyanocobalamin (vitamin B-12) 2,000 mcg tablet,extended release (Vitamin B-12 ER) 2,000 mcg PO DAILY 03/23/20 [History Confirmed 03/31/21] Exam Physical Exam Vital Signs: Temp Pulse Resp BP Pulse Ox O2 Del Method 95.7 F L 67 15 116/57 L 98 Room Air 11/21/21 03:56 11/21/21 05:45 11/21/21 05:45 11/21/21 05:45 11/21/21 05:45 11/21/21 05:45 Narrative: General: patient is alert/easily arousable however does not demonstrate HEENT: head atraumatic, normocephalic, moist mucous membranes, normal nose and ears, no throat lesions, normal conjunctiva Neck: supple no masses, no lymphadenopathy CVS: regular rate and rhythm, no murmurs or gallops Respiratory: clear to auscultation bilaterally, no wheezing or crackles, symmetric expansion GI: soft, nondistended, nontender, positive bowel sounds with no organomegaly Extremity: moves all extremities, no restrictions of movements, no calf tenderness, no edema Neuro: alert and disoriented x3, normal speech, normal motor function Skin: dry, intact no rashes or lesions Results Lab Results Labs: Laboratory Last Values Corrected WBC 5.3 X10E3/uL (3.8-11.6) 11/21/21 04:12 Uncorrected WBC Count 5.3 x10E3/uL (4.5-11.0) 11/21/21 04:12 RBC 4.31 x10E6/uL (3.60-5.00) 11/21/21 04:12 Hgb 11.6 g/dL (11.8-15.4) L 11/21/21 04:12 Hct 35.6 % (34.0-46.4) 11/21/21 04:12 MCV 82.5 fl (80-100) 11/21/21 04:12 MCH 26.9 pg (24.7-34.3) 11/21/21 04:12 MCHC 32.6 g/dL (32.0-35.0) 11/21/21 04:12 RDW 20.4 % (11.9-15.3) H 11/21/21 04:12 Plt Count 140 x10E3/uL (150-450) L 11/21/21 04:12 MPV 9.6 fl (6.3-10.7) 11/21/21 04:12 Neut % (Auto) 65.2 % (.) 11/21/21 04:12 Lymph % (Auto) 20.4 % (.) 11/21/21 04:12 Towns % (Auto) 9.9 % (.) 11/21/21 04:12 Eos % (Auto) 3.7 % (.) 11/21/21 04:12 Baso % (Auto) 0.8 % (.) 11/21/21 04:12 Neut # (Auto) 3.5 x10E3/uL (1.8-7.7) 11/21/21 04:12 Lymph # (Auto) 1.1 x10E3/uL (1.00-4.8) 11/21/21 04:12 Towns # (Auto) 0.5 x10E3/uL (0.0-0.8) 11/21/21 04:12 Eos # (Auto) 0.2 x10E3/uL (0.0-0.45) 11/21/21 04:12 Baso # (Auto) 0.0 x10E3/uL (0.0-0.2) 11/21/21 04:12 Nucleated RBC % (auto) 0.0 % (0-0.5) 11/21/21 04:12 Sample Site Left radial 11/21/21 06:15 ABG pH 7.40 (7.35-7.45) 11/21/21 06:15 ABG pCO2 37.8 mmHg (35.0-45.0) 11/21/21 06:15 ABG pO2 82.7 mmHg (80.0-100.0) 11/21/21 06:15 ABG HCO3 22.6 mmol/L (23.0-29.0) L 11/21/21 06:15 ABG Total CO2 23.8 mmol/L (23.0-27.0) 11/21/21 06:15 ABG O2 Saturation 95.9 % (95.0-100.0) 11/21/21 06:15 ABG O2 Content 7.1 mmol/L (6.6-9.7) 11/21/21 06:15 ABG Base Excess -1.9 mmol/L (-3.0-3.0) 11/21/21 06:15 FiO2 21 % 11/21/21 06:15 Critical Value 11/21/21 06:15 PHA Creatinine Clear 22.98 11/21/21 04:12 Sodium 142 mmol/L (136-146) 11/21/21 04:12 Potassium 3.1 mmol/L (3.5-5.1) L 11/21/21 04:12 Chloride 107 mmol/L (95-114) 11/21/21 04:12 Carbon Dioxide 23.5 mmol/L (22.0-30.0) 11/21/21 04:12 Anion Gap 14.6 mEq/L (6.0-15.0) 11/21/21 04:12 BUN 49 mg/dL (9-23) H 11/21/21 04:12 Creatinine 2.08 mg/dL (0.44-1.03) H 11/21/21 04:12 Est GFR ( Amer) 28 mL/Min 11/21/21 04:12 Est GFR (Non-Af Amer) 23 mL/Min 11/21/21 04:12 Glucose 124 mg/dL (70-100) H 11/21/21 04:12 POC Glucose 134 mg/dl 11/21/21 04:05 POC Glucose Comment Glu2: cleaned meter 11/21/21 04:05 Calcium 9.1 mg/dL (8.2-10.2) 11/21/21 04:12 Total Bilirubin 0.3 mg/dL (0.3-1.2) 11/21/21 04:12 AST 19 U/L (10-42) 11/21/21 04:12 ALT 17 U/L (10-60) 11/21/21 04:12 Alkaline Phosphatase 74 U/L (32-92) 11/21/21 04:12 Troponin I High Sens 6 pg/mL (0-15) 11/21/21 04:12 Total Protein 5.5 gm/dL (6.1-7.9) L 11/21/21 04:12 Albumin 3.4 gm/dL (3.2-5.5) 11/21/21 04:12 Globulin 2.1 gm/dL 11/21/21 04:12 Albumin/Globulin Ratio 1.6 11/21/21 04:12 Free T4 0.68 ng/dL (0.61-1.12) 11/21/21 04:12 TSH 3rd Generation 2.40 uIU/mL (0.45-5.33) 11/21/21 04:12 Urine Color Yellow (Yellow) 11/21/21 04:20 Urine Appearance Clear (Clear) 11/21/21 04:20 Urine pH 5.5 (5.0-9.0) 11/21/21 04:20 Ur Specific [place] 1.010 (1.001-1.030) 11/21/21 04:20 Urine Protein Negative mg/dL (Negative) 11/21/21 04:20 Urine Glucose (UA) Normal mg/dL (Normal) 11/21/21 04:20 Urine Ketones Negative (Negative) 11/21/21 04:20 Urine Occult Blood Negative (Negative) 11/21/21 04:20 Urine Nitrite Positive (Negative) H 11/21/21 04:20 Urine Bilirubin Negative (Negative) 11/21/21 04:20 Urine Urobilinogen Normal mg/dL (Normal) 11/21/21 04:20 Ur Leukocyte Esterase 1+ (Negative) H 11/21/21 04:20 Urine RBC 0-1 /HPF (0-4) 11/21/21 04:20 Urine WBC 3-4 /HPF (0-4) 11/21/21 04:20 Ur Squamous Epith Cells 1-2 /HPF (0-2) 11/21/21 04:20 Urine Bacteria 2+ (None Seen) H 11/21/21 04:20 Hyaline Casts 0-8 /LPF (0-8) 11/21/21 04:20 Urine Opiates Screen Negative (Negative) 11/21/21 04:20 Ur Barbiturates Screen Negative (Negative) 11/21/21 04:20 Ur Phencyclidine Scrn Negative (Negative) 11/21/21 04:20 Ur Amphetamines Screen Negative (Negative) 11/21/21 04:20 U Benzodiazepines Scrn Negative (Negative) 11/21/21 04:20 Urine Cocaine Screen Negative (Negative) 11/21/21 04:20 U Marijuana (THC) Screen Negative (Negative) 11/21/21 04:20 Ethyl Alcohol < 5 mg/dL 11/21/21 04:12 % Ethyl Alcohol TNP 11/21/21 04:12 SARS Antigen (LFIA) Negative (Negative) 11/21/21 05:40 Microbiology Results Micro: Microbiology - Results from entire visit 11/21/21 05:40 Nasal SARS Antigen (LFIA) - Final ABG Interpretation ABG results: 11/21/21 06:15 ABG pH 7.40 ABG pCO2 37.8 ABG pO2 82.7 ABG HCO3 22.6 L ABG Total CO2 23.8 ABG O2 Saturation 95.9 ABG O2 Content 7.1 ABG Base Excess -1.9 A&P - Hospitalist Assessment/Plan (1) Impaired mobility and activities of daily living: (2) JASEN (acute kidney injury): (3) Symptomatic bradycardia: Plan Assessment and plan *Acute metabolic encephalopathy *Symptomatic bradycardia *Acute kidney injury due to prerenal azotemia and nephrotoxins ? Multifactorial including uremia/polypharmacy/bradycardia ? Admit to the floor on telemetry ? CT of the head is reportedly negative, patient reports opening ? UA is consistent with a UTI ? Patient received 2 doses of atropine in ED ? Patient is chronically hemodynamically stable ? Continue to hold metoprolol ? Continue with IV fluids around abdominal ? Hold nephrotoxic agent including her home dose lisinopril?hydrochlorothiazide ? TSH and free T4 within normal limits ? We will get an echo ? Start patient on Rocephin ? Blood and urine cultures ? Hold her baclofen/Xanax ? PT/OT ? We will check B12 *DVT prophylaxis with Lovenox Documented By: Ashleigh Cruz MD 2 0634 Signed By: <Electronically signed by Ashleigh Cruz MD> 11/21/21 0639 [facility] Work Phone: [phone] 254-815508-17-2022 Evaluation note* Encounter Date Diagnosis Assessment Notes Treatment Notes Treatment Clinical Notes Sep, Bilateral carotid artery stenosis (ICD-10 - I65.23) I did review the patient's carotid duplex results with her today. I recommend continued nonoperative conservative management. There is no indication for any surgical intervention at this time. We will see her back in 6 months with repeat studies. All of her questions were addressed. [facility] Other 08-12-2022 Evaluation note* Encounter Date Diagnosis Assessment Notes Treatment Notes Treatment Clinical Notes Sep, Nausea and vomiting, unspecified vomiting type (ICD-10 - R11.2) rx sent, take as directed. stay hydrated. Advance diet as tolerated. Monitor for s/s of dehydration, immediate eval via ER if warning s/s of dehydration and/or pt is unable to keep any foods/fluids down. Sep, COVID-19 (ICD-10 - U07.1) Provided reassurance that patient's clinical presentation today is low suspicion for any complications of COVID. Explained to patient that COVID is a viral infection and does self resolve, generally in 10 to 14 days, even without use of any medications. Advised that patient may continue to use [id number] medications as needed for supportive treatment. Discussed that it could be possible that her nausea/vomiting/diar debbi could still be some residual side effects from the Paxlovid medication. At this time she should not take anymore that. She may follow-up with family doctor as scheduled on Saturday if she has more concerns. [facility] Other 08-10-2022 Evaluation note* Encounter Date Diagnosis Assessment Notes Treatment Notes Treatment Clinical Notes Sep, Other fractures of lower end of left radius, subsequent encounter for closed fracture with routine healing (ICD-10 - S52.592D) Sep, Closed nondisplaced fracture of proximal phalanx of right middle finger, initial encounter (ICD-10 - S62.642A) Sep, Arthritis of right hand (ICD-10 - M19.041) Sep, Right hand pain (ICD-10 - M79.641) Sep, Other specified postprocedural states (ICD-10 - Z98.890) Patient is progressing well from surgery. We discussed the importance of continuing to work on range of motion and strength exercise. Patient instructed to follow up as needed. She voices understanding and states no new questions or concerns at this time. [facility] Other 06-22-2022 Evaluation note* Encounter Date Diagnosis Assessment Notes Treatment Notes Treatment Clinical Notes Jul, Other fractures of lower end of left radius, subsequent encounter for closed fracture with routine healing (ICD-10 - S52.592D) Jul, Closed nondisplaced fracture of proximal phalanx of right middle finger, initial encounter (ICD-10 - S62.642A) Continue with gentle ROM exercises Jul, Arthritis of right hand (ICD-10 - M19.041) Jul, Right hand pain (ICD-10 - M79.641) Jul, Other specified postprocedural states (ICD-10 - Z98.890) [facility] Other 06-01-2022 Evaluation note* Encounter Date Diagnosis Assessment Notes Treatment Notes Treatment Clinical Notes Jul, Other fractures of lower end of left radius, subsequent encounter for closed fracture with routine healing (ICD-10 - S52.592D) Activity as tolerated Jul, Closed nondisplaced fracture of proximal phalanx of right middle finger, initial encounter (ICD-10 - S62.642A) Patient placed in TKO splint to use with activities. Jul, Arthritis of right hand (ICD-10 - M19.041) Patient instructed on the use of Voltaren Gel Jul, Right hand pain (ICD-10 - M79.641) Jul, Other specified postprocedural states (ICD-10 - Z98.890) [facility] Other 04-20-2022 Evaluation note* Encounter Date Diagnosis Assessment Notes Treatment Notes Treatment Clinical Notes May, Other specified postprocedural states (ICD-10 - Z98.890) May, Other fractures of lower end of left radius, subsequent encounter for closed fracture with routine healing (ICD-10 - S52.592D) Radiographs reviewed with patient. She is progressing well from surgery. She continues to experience numbness, so we will perform carpal tunnel injection. Patient was prepped and cortisone injected into the left carpal tunnel under sterile conditions. Patient tolerated well with no adverse reactions. Continue motion and strengthening exercises. Progress activity as tolerated. Call with questions/concerns. [facility] Other 03-23-2022 Evaluation note* Encounter Date Diagnosis Assessment Notes Treatment Notes Treatment Clinical Notes Apr, Other specified postprocedural states (ICD-10 - Z98.890) Radiographs reviewed with patient. Patient is progressing well from surgery. Continue occupational therapy exercises. Call with questions/concerns . Apr, Other fractures of lower end of left radius, subsequent encounter for closed fracture with routine healing (ICD-10 - S52.592D) [facility] Other 01-20-2022 Evaluation note* Encounter Date Diagnosis Assessment Notes Treatment Notes Treatment Clinical Notes Feb, Recurrent stenosis of right carotid artery (ICD-10 - I65.21) Patient has recurrent right carotid stenosis after endarterectomy. Currently is less than 80%. We will see her back in 6 months with repeat surveillance study. I suggested she see her PCP with regards to headache work-up. I do not believe it is being caused by any carotid stenoses. She understands agrees the plan if she would develop any symptoms I requested she call me immediately. She understands. She is a reliable patient. I did compare this carotid duplex with the last carotid duplex from 11/10/2020. Today's study is essentially the same. She has not yet progressed to 80% stenoses based on peak end-diastolic velocities.She remains asymptomatic at this time. We will continue to conservatively manage her and treat her nonoperatively for now..I did caution her that she may require balloon angioplasty in the future if this continues to progress or reaches 80% or she develops symptoms [facility] Other 10-21-2021 Evaluation note* Encounter Date Diagnosis Assessment Notes Treatment Notes Treatment Clinical Notes Nov, Asymptomatic stenosis of right carotid artery (ICD-10 - I65.21) I reviewed the CT angiogram. This appears to be less than 80%. Therefore we will continue with nonoperative conservative management. We will see her back in 3 months with a repeat carotid duplex study. The patient understands agrees the plan of her questions were answered. For the left leg swelling I suggested ice and elevation with compression stockings. [facility] Other 09-30-2021 Evaluation note* Encounter Date Diagnosis Assessment Notes Treatment Notes Treatment Clinical Notes Oct, Recurrent stenosis of right carotid artery (ICD-10 - I65.21) Is duplex with her today. She has greater than 70% stenoses of the right carotid artery. This was previously endarterectomized in the past. She is approaching 80%. Although I believe now she is asymptomatic I do recommend we obtain a CT angiogram to further delineate the amount of stenoses. She may need intervention. This was explained to the patient and she understands agrees the plan. I do not believe any of her current symptoms are related to this recurrent right carotid artery stenoses at this time. I would classify this is asymptomatic recurrent stenoses currently. [facility] Other Evaluation noteNo assessment information available [facility] Work Phone: Evaluation noteNo InformationNort [employer] Other Evaluation note* Diagnosis Onset Date Resolution Status JASEN (acute kidney injury) ac davis AMS (altered mental status) acute Impaired mobility and activities of daily living acute Symptomatic bradycardia acut e [facility] Work Phone: Evaluation note* Diagnosis Onset Date Resolution Status JASEN (acute kidney injury) ac davis AMS (altered mental status) acute Impaired mobility and activities of daily living acute Symptomatic bradycardia acut e H/O traumatic brain injury c hronic HLD (hyperlipidemia) chronic HTN, goal below 140/90 chron ic [facility] [employer] Work Phone: History general Narrative - Reported* Type Description Date Medical History DVT Medical History left MCA stroke Medical History aphasia due to CVA Medical History anemia Medical History HTN Medical History hyperlipidemia Medical History dystonia Medical History dysphagia Medical History traumatic brain injury Medical History left lower leg Cellulitis Surgical History tonsillectomy Surgical History cholecystectomy Surgical History appendectomy Surgical History knee replacement X 5 right Surgical History knee surgery left Surgical History breast duct removal left Surgical History Right CEA with patch angioplast y 04/06/20 Hospitalization History CVA 03/2018 Hospitalization History childbirth Hospitalization History X2 strokes 2018 [facility] Other [facility] general Narrative - Reported* Type Description Date Medical History DVT Medical History left MCA stroke Medical History aphasia due to CVA Medical History anemia Medical History HTN Medical History hyperlipidemia Medical History dystonia Medical History dysphagia Medical History traumatic brain injury Medical History left lower leg Cellulitis Surgical History tonsillectomy Surgical History cholecystectomy Surgical History appendectomy Surgical History knee replacement X 5 right Surgical History knee surgery left Surgical History breast duct removal left Surgical History Right CEA with patch angioplast y 04/06/20 Surgical History Open reduction inter nal fixation Left intra-articular distal radius fracture (2-part), Left Carpal tunnel syndrome release with decompression of thenar motor branch, 03/2021 Hospitalization History CVA 03/2018 Hospitalization History childbirth Hospitalization History X2 strokes 2018 [facility] Other Hospital Discharge instructions Additional Instructions Please call and schedule an appointment with your established [facility]. We attempted to make this appointment for you but the office was currently unavailable.[facility] Work Phone: Summary Purpose Family History No Family History Records Found Relationship Condition Age at Onset Recorded Date/T darrell father Malignant neoplasm of prostate Unknown Malignant neoplasm of bone Unknown Type 2 diabetes mellitus Unknown Not Specified Malignant neoplasm of brain Unknown Not Specified Malignant neoplasm of breast Unknown natural son Down syndrome Unknown daughter Malignant neoplasm of lung Unknown brother Myocardial infarction Unknown Advance Directives No Advanced Directives Records Found Advance Directive Response Recorded Date/ Time Advance Directives No October 9:28am Advance Directive Response Recorded Date/ Time Advance Directives No October 8:28am Chief Complaint and Reason for Visit Chief Complaint L hand fx M79.641 S62.642A stroke w/ residual dysarthuria; word finding i65.23 Chief Complaint i65.23 stroke w/ residual dysarthuria; word finding weakness/ AMS Reason for Visit JASEN (acute kidney in jury) AMS (altered mental status) Impaired mobility and activities of daily living Symptomatic bradycardia Chief Complaint i65.23 stroke w/ residual dysarthuria; word finding weakness/ AMS Reason for Visit JASEN (acute kidney in jury) AMS (altered mental status) Impaired mobility and activities of daily living Symptomatic bradycardia H/O traumatic brain injury HLD (hyperlipidemia) HTN, goal below 140/90 Chief Complaint weakness/ AMS stroke w/ residual dysarthuria; word finding Reason for Visit JASEN (acute kidney in jury) AMS (altered mental status) Impaired mobility and activities of daily living Symptomatic bradycardia H/O traumatic brain injury HLD (hyperlipidemia) HTN, goal below 140/90 Chief Complaint stroke w/ residual d ysarthuria; word finding Dysuria Additional Source Comments INFORMATION SOURCE (unrecogn ized section and content) DATE CREATED AUTHOR 03/09/2020 [facility] DATE CREATED AUTHOR AUTHOR'S ORGANIZ ATION 12/03/2021 [facility] DATE CREATED AUTHOR AUTHOR'S ORGANIZ ATION 02/28/2022 [facility] DATE CREATED AUTHOR AUTHOR'S ORGANIZ ATION 01/22/2023 [facility] DATE CREATED AUTHOR AUTHOR'S ORGANIZ ATION 02/14/[address] [facility] DATE CREATED AUTHOR AUTHOR'S ORGANIZ ATION 02/17/2023 [facility] REASON FOR VISIT (unrecogniz ed section and content) VASC 3 MONTH FU; CAROTID DUP TEMITOPE 9AFOLLOW UP; [facility] SCAN [facility] [place] AMVASC 3 MONTH FOLLOW UP; CAROTID DUPLEX 8:30ARecheck Left WristRecheck Left WristRecheck Left WristRecheck Wrist and HandRecheck LT wristCAROTID FOLLOW UP; CAR US 08/31EAR PAIN, NAUSEAReferral updateNo Information6 MONTH FOLLOW UP; CAROTID DUPLEX 9Apossible UTI Care Teams (unrecognized sec tion and content) Team Status: Inactive Member Role Status Reid Day MD Primary Care Provider Active Denver Juarez MD Attending Provider Active Team Status: Inactive Member Role Status Reid Day MD Primary Care Provider Active Susie Arrington MD Attending Provider Active Team Status: Active Member Role Status Reid Hartley MD Primary Care Provider Active Shaikh Barb MD Attending Provider Active Team Status: Active Member Role Status Reid Day MD Primary Care Provider Active Team Status: Active Member Role Status Reid Day MD Primary Care Provider Active Rafiq Bahena DO Emergency Provider Active Ashleigh Cruz MD Admit Provider, Attending Vipul hawkins Active Shira Castañeda RN Other Provider Active Tye Mendoza DO Other Provider Active Betito Arellano MD Other Provider Active Aneesh Zendejas MD Other Provider Active Shavon Leos MD Other Provider Active Brayan Ribera MD Other Provider Active Patience Brown APRN Other Provider Active Shefali Garibay MD Other Provider Active Vannessa Nava MD Other Provider Active Alissa Young MD Other Provider Active Maddie Garcia HEALTHCARE APPLICATIONS ANALYST- Other Provider Active Team Status: Inactive Member Role Status Reid Day MD Primary Care Provider Active Rafiq Bahena DO Emergency Provider Active Ashleigh Cruz MD Admit Provider Active Anna Valladares MD Attending Provider Active Team Status: Inactive Member Role Status Reid Hartley MD Primary Care Provider Active Shaikh Barb MD Attending Provider Active Team Status: Inactive Member Role Status Reid Day MD Primary Care Provider Active Earline L Harris , LAYBOY TENDER Attending Provider Active Goals (unrecognized section and content) Goals may be documented in a n alternate section FOR RECORDS PERTAINING TO PATIENTS WHO ARE OR HAVE BEEN ENROLLED IN A CHEMICAL DEPENDENCY/SUBSTANCEABUSE PROGRAM, SOME INFORMATION MAY BE OMITTED. This clinical summary was aggregated from multiple sources. Caution should be exercised in using it in the provision of clinical care. This summary normalizes information from multiple sources, and as a consequence, information in this document may materially change the coding, format and clinical context of patient data. In addition, data may be omitted in some cases. CLINICAL DECISIONS SHOULD BE BASED ON THE PRIMARY CLINICAL RECORDS. [facility]. provides no warranty or guarantee of the accuracy or completeness of information in this document.
[2023-02-20 16:17] LABS: Bilirubin Urine NEGATIVE (NEGATIVE); Blood Urine TRACE-I (NEGATIVE); Color Urine LT. YELLOW (YELLOW); Glucose Urine UA NEGATIVE (NEGATIVE); Ketones Urine NEGATIVE (NEGATIVE); Leukocyte Esterase Urine MODERATE (NEGATIVE); Nitrite Urine NEGATIVE (NEGATIVE); Protein Urine NEGATIVE (NEG/TRACE); Specific Gravity Urine >=1.030 (1.005-1.025); Urobilinogen Urine 0.2 EU/dL (0.2-1.0)
[2023-02-20 16:18] LABS: Clarity Urine SLIGHTLY CLOUDY (CLEAR); Urine Microscopic Indicated YES
[2023-02-20 16:24] LABS: WBC Urine 50-75 #/HPF (NONE SEEN)
[2023-02-20 16:25] LABS: Bacteria Urine TRACE #/HPF (NONE SEEN); Cast Seen? NONE SEEN #/LPF (NONE SEEN); Crystals Seen? None Seen #/HPF (None Seen); Mucus Urine NONE SEEN (NONE SEEN); Squamous Epithelial Cell Urine NONE SEEN #/LPF (NONE/RARE)
== END 2023-02-20 14:36 | disposition home or self-care (01) ==
LOC: LAB 14:36
PROVIDERS: PCP Internal Medicine; Visit Provider Internal Medicine
DX: N39.490 Overflow incontinence (principal)
CPT/HCPCS: 81001; 87086; 87150; 87186

== ENCOUNTER 2023-03-01 07:11 | Outpatient (OUT) | payer MEDICARE, SELFPAY ==
--- OUTSIDE RECORDS SUMMARY | 2023-03-01 07:14 | XMS_ITS | CCD ---
Author Name Unknown Address [address] [place] [address] Organization [facility] Care Team Providers Care Treating Plant Pumper Name Role Phone Denver Juarez Unavailable Susie Arrington Unavailable MD Eddy Day Primary Care Provider MD Susie Arrington R Attending Provider [phone] MD Gerry Hartley Primary Care Provider MD Eddy Day Attending Provider MD Denver Juarez Attending Provider Ilda Das Unavailable MD Eddy Day Primary Care Provider MD Gerry Hartley Primary Care Provider MD Eddy Day Attending Provider DO Rafiq Bahena Emergency Provider [phone] MD Ashleigh Card Admit Provider MD Ashleigh Card Attending Provider LESTER Castañeda Other Provider Unavailable DO Masood Mendoza Other Provider MD Betito Arellano Other Provider [phone] MD Aneesh Zendejas Other Provider [phone] MD Shavon Leos Other Provider [phone] MD Brayan Ribera Other Provider CÉSAR Arenas Other Provider [phone] MD Shefali Garibay Other Provider MD Vannessa Nava Other Provider MD Alissa Young Other Provider Jose [facility] Maddie Pietro Other Provider [phone] MD Anna Valladares Attending Provider NO FAMILY PHYSICIAN, 837 Primary Care Unavail able MIKE VIDES, - LUIS Attending Unavaila MD Eddy Swenson Primary Care Provider DO Rafiq Bahena Emergency Provider [phone] Al MD Dagoberto Roche Admit Provider MD Anna Valladares Attending Provider MD Gerry Hartley Primary Care Provider MD Eddy Day Attending Provider LIZ LANE Admitting Unavailable LIZ LANE Attending Unavailable FAWWAD, DE OLIVEIRA H Primary Care Unavailable FAWWAD, DE OLIVEIRA H Admitting Unavailable FAWWAD, DE OLIVEIRA H Attending Unavailable FAWWAD, DE OLIVEIRA H Primary Care Unavailable Nico, DR Senior Consulting Unavailable FAWWAD, DE OLIVEIRA H Consulting Unavailable DAVID, LIZ Admitting Unavailable LIZ LANE Attending Unavailable FAWWAD, DE OLIVEIRA H Primary [...] CABAN Consulting Unavailable DAVID, LIZ Admitting Unavailable LIZ LANE Attending Unavailable FAWWAD, DE OLIVEIRA H Primary [...] Primary Care Unavailable SHERRI MONTAGUE Consulting Unavailable SHERRI MONTAGUE Admitting Unavailable SHERRI MONTAGUE Attending Unavailable MARYSE LANGFORD Consulting Unavailable FAWWAD, DE OLIVEIRA H Attending Unavailable FAWWAD, DE OLIVEIRA H Primary Care Unavailable FAWWAD, DE OLIVEIRA H Consulting Unavailable FAWWAD, DE OLIVEIRA H Admitting Unavailable FAWWAD, DE OLIVEIRA H Primary Care Unavailable ALONSO JACOBS Admitting Unavailable ALONSO JACOBS Attending Unavailable JEAN-PIERRE GIRALDO Consulting Unavailable Natacha Cerna Consulting Unavailable ALONSO JACOBS Consulting Unavailable MD Eddy Day Primary Care Provider CÉSAR Harris Attending Provider Earline Harris Unavailable Kori Temple Unavailable Famasoodwad, De Oliveira Primary Care Unavailable Earline Harris Admitting Unavailable Earline Harris Attending Unavailable Denver Juarez Attending Unavailabl e Fawwad, De Oliveira Primary Care Unavailable Denver Juarez Admitting Unavailabl e Fawwad, De Oliveira Admitting Unavailable Fawwad, De Oliveira Primary Care Unavailable Barb, De Oliveira Attending Unavailable GERRY HARTLEY Referring Unavailable GERRY HARTLEY Primary Care Unavailable Gerry Hartley MD Primary Care Provider BARB, DE OLIVEIRA Attending Unavailable NICOLAS CARRILLO Attending Unavailable MEGHANN FONSECA Attending Unavailable MEGHANN FONSECA Attending Unavailable Allergies Allergy Classification Reported Allergen(s) Allergy Type Date of Onset Reaction(s) Facility (14 sources) Penicillin G Drug Allergy Unknown Dispop Other (9 sources) Penicillins; 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: [Penicillins] Allergy to substance 8 [facility] (1 source) Penicillin Drug Allergy 3 [facility] Medications Current Medications Medication Drug Class(es) [...] 2019 4:28pm baclofen 20 mg oral tablet (18 sources) gamma-Aminobutyric Acid-ergic Agonist Start: 04-05-2018 take 20 mg by mouth three times daily Baclofen Active 20 MG PO Three times daily April 05, 2018 12:00am take 1 tablet by nemesio th twice daily at mealtime as needed Baclofen [...] 500 MG PO Three times daily 15 November 21, 2021 11:00pm clonazePAM 0.5 mg [...] Active ferrous sulfate 325 mg oral tablet (16 sources) Start: 11-21-2021 take 1 tablet by [...] (Original) cetirizine hydrochloride 10 mg oral tablet (6 sources) Histamine-1 Receptor Antagonist Start: 02-18-2020 End: [...] 12, 2018 9:29am take 1 capsule by [facility] every twenty-four hours Docusate Sodium 100 MG 1 capsule as needed Orally Once a day for 30 day(s) Not-Taking hydroCHLOROthiazide 12.5 mg oral tablet (6 sources) Thiazide Diuretic Start: 12-12-2018 End: 03-23-2020 take 12.5 mg by mouth once daily in the morning Hydrochlorothiazide Discontinued 12.5 MG PO Every morning December 11, 2018 11:00pm March 23, 2020 12:05pm take 1 capsule by mouth once shayna ly hydroCHLOROthiazide (MICROZIDE) 12.5 mg capsule Take 12.5 mg by mouth daily. 0 Active hydroCHLOROthiazide 12.5 mg / lisinopril 10 mg oral tablet (20 sources) Thiazide Diuretic, Angiotensin Converting Enzyme Inhibitor Start: 04-05-2018 End: 03-26-2019 take 1 tablet by mouth once daily Lisinopril-Hydrochlorothiazide Discontinued 1 TAB PO Daily 30 April 18, 2018 6:54am March 26, 2019 4:28pm take 10-12.5 mg by mouth once li sinopril-hydroCHLOROthiazide (PRINZIDE,ZESTORETIC) 10-12.5 mg per tablet Take 1 tablet by mouth daily. 0 Active Lisinopril-hydro CHLOROthiazide Active ibuprofen 800 mg oral [...] 2018 12:00am April 18, 2018 6:51am traZODone (11 sources) Serotonin Reuptake Inhibitor Start: 03-26-2019 End: 03-26-2019 Trazodone Discontinued TABLET March 26, 2019 12:00am March 26, 2019 5:06pm Start: 03-26-2019 End: 03-26-2019 Trazodone Discontinued TABLE T March 26, 2019 1:00am March 26, 2019 6:06pm Start: 06-05-2018 take 1 tablet by nemesio th every twenty-four hours traZODone HCl 100 MG 1 tablet at bedtime Orally Once a day for 30 day(s) May, Not-Taking traZODone (DESYR EL) 100 mg tablet Take 150 mg by mouth nightly as needed for sleep. 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 Chronic Administrative/social admission (8 sources) Other [...] disease (8 sources) Atherosclerotic heart disease of circle coronary artery without angina pectoris; 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: [Other [...] UNSPECIFIED] Onset: 11-28-2021 Chronic Other circulatory disease (6 sources) History of cardiovascular surgery; 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: [Presence of other cardiac implants and grafts] Onset: 04-08-2018 04-11-2018 Chronic Other connective tissue disease (1 [...] sources) Weakness; 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: [WEAKNESS] Onset: 2 Episodic Mood disorders (1 source) Mood disorders Onset: 9 08-25-2018 Nausea and vomiting (1 source) Nausea with vomiting, unspecified Onset: 2 Resolved: 2 Episodic Other aftercare (1 source) 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; 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: [ORE FEEDER CURRENT USE OF ASPIRIN] Onset: 2 Episodic Other aftercare (1 source) Other penitentiary (current) drug therapy; 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: [OTH ORE FEEDER CURRENT DRUG THERAPY] Onset: 2 Episodic Other aftercare (1 source) Encounter for follow-up examination after completed treatment for conditions other than malignant neoplasm; 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: [ENC F/U EX AFTR CMPL TX NOT MAL SU] Onset: 2 Episodic Other aftercare (1 source) custodial (current) use of antithrombotics/antipl atelets; 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: [USP 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/ANTIPLATL ETS] Onset: 2 Episodic Other circulatory [...] specified; 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: [UTI SITE NOT SPECIFIED] Onset: Episodic Results Test Name Value Interpretation Reference Range Facility 36on 02-27-2023 36 PER PATRICIA CAN GO DE K TO 20 MG Normal [facility] 37on 02-13-2023 37 Decrease amount of fluids your drinking to about 1.5 liters/day Take lasix 40 mg daily and increase potassium to 20 meq daily Have labs drawn in 1 week Call for appointment with neuro Normal [facility] Office Visiton 02-13-2023 Follow-up visit [id number] Ozzie Gifford 1950 F Date Provider Department Center 02/13/2023 MEGHANN NEGRETE CARD [facility] Family History Problem Relation Age of Onset Hypertension Mother Hypertension Father Heart attack Brother Family Status - Relation Status Age at Mother Father Brother Level of Service:56068 MA OFFICE/OUTPATIENT ESTABLISHED MOD MDM 30 MIN Normal [facility] Urinalysis - AUTOMATEDon Appearance (U) cloudy Rain Other Bilirubin Ql (U) Negative [facility] Other Color (U) yellow Dispop Other Glucose Ql (U) Negative Rain Other Hemoglobin Ql (U) Negative [employer] Other Ketones Ql (U) Negative Rain Other Leukocyte esterase Test strip Ql (U) Negative Dispop Other Nitrite Ql (U) Negative [employer] Other pH (U) 6.0 [pH] Dispop Other Protein Ql (U) Negative Rain Other Specific gravity (U) [Rel density] 1.030 Dispop Other Urobilinogen (U) [Mass/Vol] 1.0 mg/dL Dispop Other Urinalysis - AUTOMATED No rth [employer] Other Office Visiton 08-28-2022 Follow-up visit [id number] Ozzie Gifford 1950 F Date Provider Department Center 08/28/2022 TaeMONIEJVNICOLAS HUIZAR CARD [facility] Family History Problem Relation Age of Onset Hypertension Mother Hypertension Father Heart attack Brother Family Status - Relation Status Age at Mother Father Brother Level of Service:52567 MA OFFICE/OUTPATIENT ESTABLISHED MOD MDM 30-39 MIN Reason for Visit and Comments: Follow-up [446474] - 6 month follow up Normal [facility] US carotid doppler BIon 03-15 US carotid doppler BI [facility] [place] [address] Ultrasound Report Signed Patient: Ozzie Gifford MR#: [id number] : 1950 Acct:[id number] Age/Sex: 71 / F ADM Date: 04/04/22 Loc: [facility] Room: Type: [facility] Attending Dr: Denver Juarez MD Ordering [...] Denver Juarez MD04/04/2022 3:28 PM Dictation Location: [place] [address] Tech: Selin Oglesby Transcribed By: [facility] 04/04/22 1528 Dictated By: Denver Juarez MD 04/04/22 1528 Signed By: 04/04/22 1528 [facility] 37on 03-05-2022 37 Start Isosorbide/Imdur 30 mg daily in the morning- for chest pain Call office for any concerns, worsening chest pain, worsening headache, lightheadedness/dizzi ness. Normal [facility] Office Visiton 03-05-2022 Follow-up visit [id number] Ozzie Gifford 1950 F Date Provider Department Center 03/05/2022 Niki-MEGHANN FONSECA CARD [facility] Family History Problem Relation Age of Onset Hypertension Mother Hypertension Father Heart attack Brother Family Status - Relation Status Age at Mother Father Brother Level of Service:50072 MA OFFICE/OUTPATIENT ESTABLISHED MOD MDM 30-39 MIN Normal [facility] Urine Cultureon 03-02-2022 Bacteria identified Cx Nom (U) Reason for Exam Dysuria Urine ORGANISM: Escherichia coli (O:ESCCOL) [place] Count 20,000 Aerobic QUINTIN Charge (NMIC56) ---- [...] RESISTANT TO ALL B-LACTAM DRUGS. PERFORMED BY: [place] [address] PATHOLOGIST FLASH DESIGNER YOCASTA BYRNE M.D. Normal [facility] Comment on above: Performed By: #### C UU #### [address] ECHOCARDIO M/2D COMPLETEon 0 02-21-2022 ECHOCARDIO M/2D COMPLETE Patient: OZZIE GIFFORD Exam Date: 02/21/2022 : 1950 Gender:F Ordering : MEGHANN FONSECA Admission #: [id number] Family : SHAIKH Korina DAY . Order #: [id number] CLICK HERE TO VIEW EXAM ECHOCARDIOGRAM REPORT [...] Doty M.D. on 02/22/2022 at 13:00 Normal [facility] VC COMP CONSULTATIONon 02-20 VC COMP CONSULTATION Patient: OZZIE GIFFORDDeonte Exam Date: 02/20/2022 : 1950 Gender:F Ordering : SHAIKH Korina DAY . 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 The patient describes a family history significant for a daughter who of lung cancer in 2011 cancer in multiple relatives. , 1 of [...] Walsh MD on 02/20/2022 at 11:35 Normal [facility] VC VENOUS REFLUX IAN LMTon 0 02-20-2022 VC VENOUS REFLUX IAN LMT Patient: OZZIE GIFFORD Exam Date: 02/20/2022 : 1950 Gender:F Ordering : SHAIKH Korina DAY . Admission #: [id number] Family : DR NATACHA WALSH M.D. 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 Mid/med [...] Walsh MD on 02/20/2022 at 10:30 Normal [facility] US JANETTE DOP LEG LTon 02-01-20 22 [...] by: INDRA LOZADA Date: 2022-01-31 18:39 Normal [facility] BNPon 01-22-2022 Natriuretic peptide B (Bld) [Mass/Vol] 552.0 pg/mL Normal <=900.0 [facility] Comment on above: Performed By: #### E RUR #### [facility] [address] [place] [address] Dr. Grzegorz Wang CBC AUTO DIFFon 01-22-2022 BASO # 0.1 103/ul Normal 0.0-0.1 [facility] Comment on above: Performed By: #### C BC #### [facility] [address] [place] [address] Dr. Grzegorz Wang Basophils/100 WBC (Bld) 0.9 % Normal 0.2-2.[address] [facility] Comment on above: Performed By: #### C BC #### [facility] [address] [place] [address] Dr. Grzegorz Wang EO # 0.3 103/ul Normal 0.0-0.7 [facility] Comment on above: Performed By: #### C BC #### [facility] [address] [place] [address] Dr. Grzegorz Wang Eosinophils/100 WBC (Bld) 5.5 % Normal 0.9-7.0 [facility] Comment on above: Performed By: #### C BC #### [facility] [address] [place] [address] Dr. Grzegorz Wang Erythrocyte distribution width (RBC) [Ratio] 13.7 % Normal 11.0-15.0 [facility] Comment on above: Performed By: #### C BC #### [facility] [address] [place] [address] Dr. Grzegorz Wang Hematocrit (Bld) [Volume fraction] 41.1 % Normal 36.0-48.0 [facility] Comment on above: Performed By: #### C BC #### [facility] [address] [place] [address] Dr. Grzegorz Wang Hemoglobin (Bld) [Mass/Vol] 13.4 g/dL Normal 12.0-16.0 [facility] Comment on above: Performed By: #### C BC #### [facility] [address] [place] [address] Dr. Grzegorz Wang IG # 0.01 10e3/ul Normal 0.00-0.03 [facility] Comment on above: Performed By: #### C BC #### [facility] [address] [place] [address] Dr. Grzegorz Wang IG % 0.2 % Normal 0.0-0.5 [facility] Comment on above: Performed By: #### C BC #### [facility] [address] [place] [address] Dr. Grzegorz Wang LYMPH # 1.8 103/ul Normal 1.2-3.8 [facility] Comment on above: Performed By: #### C BC #### [facility] [address] [place] [address] Dr. Grzegorz Wang Lymphocytes/100 WBC (Bld) 29.9 % Normal 20.5-60.0 [facility] Comment on above: Performed By: #### C BC #### [facility] [address] [place] [address] Dr. Grzegorz Wang MANUAL DIFF REQ NO Normal [facility] Comment on above: Performed By: #### C BC #### [facility] [address] [place] [address] Dr. Grzegorz Wang MCH (RBC) [Entitic mass] 28.2 pg Normal 26.7-34.0 [facility] Comment on above: Performed By: #### C BC #### [facility] [address] [place] [address] Dr. Grzegorz Wang MCHC (RBC) [Mass/Vol] 32.6 g/dL Normal 29.9-35.2 [facility] Comment on above: Performed By: #### C BC #### [facility] [address] [place] [address] Dr. Grzegorz Wang MCV (RBC) [Entitic vol] 86.5 fL Normal 81.0-99.[address] [facility] Comment on above: Performed By: #### C BC #### [facility] [address] [place] [address] Dr. Grzegorz Wang MONO # 0.7 103/ul Normal 0.3-0.8 [facility] Comment on above: Performed By: #### C BC #### [facility] [address] [place] [address] Dr. Grzegorz aWng Monocytes/100 WBC (Bld) 11.1 % Normal 1.7-12.[address] [facility] Comment on above: Performed By: #### C BC #### [facility] [address] [place] [address] Dr. Grzegorz Wang NEUT # 3.1 103/ul Normal 1.4-6.5 [facility] Comment on above: Performed By: #### C BC #### [facility] [address] [place] [address] Dr. Grzegorz Wang Neutrophils/100 WBC (Bld) 52.4 % Normal 43.0-75.0 [facility] Comment on above: Performed By: #### C BC #### [facility] [address] [place] [address] Dr. Grzegorz Wang Platelet mean volume (Bld) [Entitic vol] 9.6 fL Normal 9.5-13.5 [facility] Comment on above: Performed By: #### C BC #### [facility] [address] [place] [address] Dr. Grzegorz Wang PLT 162 103/ul Normal 150-450 [facility] Comment on above: Performed By: #### C BC #### [facility] [address] [place] [address] Dr. Grzegorz Wang RBC 4.75 106/ul Normal 4.20-5.40 [facility] Comment on above: Performed By: #### C BC #### [facility] [address] [place] [address] Dr. Grzegorz Wang WBC 5.9 103/ul Normal 4.0-11.0 [facility] Comment on above: Performed By: #### C BC #### [facility] [address] [place] [address] Dr. Grzegorz Wang PROF 14(COMP METB)on 12-12-2 022 Albumin [Mass/Vol] 3.4 g/dL Normal 3.4-5.0 [facility] Comment on above: Performed By: #### E RUR #### [facility] [address] [place] [address] Dr. Grzegorz Wang Albumin/Globulin [Mass ratio] 1.0 {ratio} Normal [facility] Comment on above: Performed By: #### E RUR #### [facility] [address] [place] [address] Dr. Grzegorz Wang ALP [Catalytic activity/Vol] 102 U/L Normal 46-116 [facility] Comment on above: Performed By: #### E RUR #### [facility] [address] [place] [address] Dr. Grzegorz Wang ALT [Catalytic activity/Vol] 16 U/L Normal 14-59 [facility] Comment on above: Performed By: #### E RUR #### [facility] [address] [place] [address] Dr. Grzegorz Wang Anion gap [Moles/Vol] 10.6 mmol/L Normal [facility] Comment on above: Performed By: #### E RUR #### [facility] [address] [place] [address] Dr. Grzegorz Wang AST [Catalytic activity/Vol] 18 U/L Normal 15-37 [facility] Comment on above: Performed By: #### E RUR #### [facility] [address] [place] [address] Dr. Grzegorz Wang Bilirubin [Mass/Vol] 0.4 mg/dL Normal 0.2-1.0 [facility] Comment on above: Performed By: #### E RUR #### [facility] [address] [place] [address] Dr. Grzegorz Wang Calcium [Mass/Vol] 9.0 mg/dL Normal 8.5-10.1 [facility] Comment on above: Performed By: #### E RUR #### [facility] [address] [place] [address] Dr. Grzegorz Wang Chloride [Moles/Vol] 103 mmol/L Normal 98-107 [facility] Comment on above: Performed By: #### E RUR #### [facility] [address] [place] [address] [address] Grzegorz Wang CO2 [Moles/Vol] 31.4 mmol/L Normal 21.0-32.0 [facility] Comment on above: Performed By: #### E RUR #### [facility] [address] [place] [address] [address] Grzegorz Wang Creatinine [Mass/Vol] 0.80 mg/dL Normal 0.55-1.02 [facility] Comment on above: Performed By: #### E RUR #### [facility] [address] [place] [address] [address] Grzegorz Wang EGFR-AF GERMAN >60 Normal >=60 [facility] Comment on above: Performed By: #### E RUR #### [facility] [address] [place] [address] [address] Grzegorz Wang EGFR-NON AF GERMAN >60 Normal >=60 [facility] Comment on above: Performed By: #### E RUR #### [facility] [address] [place] [address] [address] Grzegorz Wang Globulin (S) [Mass/Vol] 3.4 g/dL Normal [facility] Comment on above: Performed By: #### E RUR #### [facility] [address] [place] [address] [address] Grzegorz Wang Glucose [Mass/Vol] 78 mg/dL Normal 74-106 [facility] Comment on above: Performed By: #### E RUR #### [facility] [address] [place] [address] [address] Grzegorz Wang Potassium [Moles/Vol] 3.0 mmol/L Critically low 3.5-5.1 [facility] Comment on above: Performed By: #### E RUR #### [facility] [address] [place] [address] [address] Grzegorz Wang Protein [Mass/Vol] 6.8 g/dL Normal 6.4-8.2 [facility] Comment on above: Performed By: #### E RUR #### [facility] [address] [place] [address] [address] Grzegorz Wang Sodium [Moles/Vol] 142 mmol/L Normal 136-145 [facility] Comment on above: Performed By: #### E RUR #### [facility] [address] [place] [address] [address] Grzegorz Wang Urea nitrogen [Mass/Vol] 14.0 mg/dL Normal 7.0-18.0 [facility] Comment on above: Performed By: #### E RUR #### [facility] [address] [place] [address] [address] Grzegorz Wang Urea nitrogen/Creatinine [Mass ratio] 17.5 mg/mg Normal [facility] Comment on above: Performed By: #### E RUR #### [facility] [address] [place] [address] [address] Grzegorz Wang US JANETTE DOP LEG [...] by: MIRI BALTAZAR Date: 2022-01-22 16:38 Normal [facility] LIPID PROFILEon 01-18-2022 CHOL-HDL RATIO NORM SEE BELOW Normal [facility] Comment on above: Result Comment: 3.3 - 4.4 LOW RISK 4.4 - 7.1 AVERAGE RISK 7.1 - 11.0 MODERATE RISK >11.0 HIGH RISK Performed By: #### A MY, LIPA #### [facility] [address] [place] [address] [address] Grzegorz Wang Cholesterol [Mass/Vol] 125 mg/dL Normal <=200 [facility] Comment on above: Performed By: #### A MY, LIPA #### [facility] [address] [place] [address] [address] Grzegorz Wang Cholesterol in HDL [Mass/Vol] 69 mg/dL Critically high 40-60 [facility] Comment on above: Performed By: #### A MY, LIPA #### [facility] [address] [place] [address] [address] Grzegorz Wang Cholesterol in LDL [Mass/Vol] 40.0 mg/dL Normal [facility] Comment on above: Performed By: #### A MY, LIPA #### [facility] [address] [place] [address] [address] Grzegorz Wang Cholesterol.total/Claudia sterol in HDL [Mass ratio] 1.8 {ratio} Normal [facility] Comment on above: Performed By: #### A BRAYDEN, LIPA #### [facility] [address] [place] [address] Dr. Grzegorz Wang HDL NORMAL > or = 60 mg/dl - LO W CARDIOVASCULAR RISK <40 mg/dl - HIGH CARDIOVASCULAR RISK Normal [facility] Comment on above: Performed By: #### A BRAYDEN LIPA #### [facility] [address] [place] [address] Dr. Grzegorz Wang LDL CALC NORMAL SEE BELOW Normal [facility] Comment on above: Result Comment: <100 mg/dl OPTIMAL 100 - 129 mg/dl NEAR OR ABOVE OPTIMAL 130 - 159 mg/dl BORDERLINE HIGH 160 - 189 mg/dl HIGH >190 mg/dl VERY HIGH Performed By: #### A BRAYDEN LIPA #### [facility] [address] [place] [address] Dr. Grzegorz Wang Triglyceride [Mass/Vol] 80 mg/dL Normal <=150 [facility] Comment on above: Performed By: #### A BRAYDEN LIPA #### [facility] [address] [place] [address] Dr. Grzegorz Wang VLDL CALC 16.0 mg/dL Normal [facility] Comment on above: Performed By: #### A BRAYDEN LIPA #### [facility] [address] [address] [address] Grzegorz Wang US PELVISon 01-18-2022 US [...] by: MITZI CHAU Date: 2022-01-18 10:31 Normal [facility] XR CHEST 2 Von 01-03-2022 XR CHEST [...] by: MITZI CHAU Date: 2022-01-03 10:48 Normal [facility] US PELVISon 12-07-2021 US PELVIS EXAMINATION: US [...] by: MITZI CHAU Date: 2021-12-07 17:20 Normal [facility] PROF CHEM 8 (BAS METB)on Anion gap [Moles/Vol] 13.0 mmol/L Normal [facility] Comment on above: Performed By: #### A BRAYDEN LIPA #### [facility] [address] [place] [address] Dr. Grzegorz Wang Calcium [Mass/Vol] 8.9 mg/dL Normal 8.5-10.1 [facility] Comment on above: Performed By: #### A BRAYDEN LIPA #### [facility] [address] [place] [address] Dr. Grzegorz Wang Chloride [Moles/Vol] 105 mmol/L Normal 98-107 [facility] Comment on above: Performed By: #### A BRAYDEN LIPA #### [facility] [address] [place] [address] Dr. Grzegorz Wang CO2 [Moles/Vol] 29.0 mmol/L Normal 21.0-32.0 [facility] Comment on above: Performed By: #### A BRAYDEN LIPA #### [facility] [address] [place] [address] Dr. Grzegorz Wang Creatinine [Mass/Vol] 0.79 mg/dL Normal 0.55-1.02 [facility] Comment on above: Performed By: #### A BRAYDEN LIPA #### [facility] [address] [place] [address] Dr. Grzegorz Wang EGFR-AF GERMAN >60 Normal >=60 [facility] Comment on above: Performed By: #### A BRAYDEN LIPA #### [facility] [address] [place] [address] Dr. Grzegorz Wang EGFR-NON AF GERMAN >60 Normal >=60 [facility] Comment on above: Performed By: #### A BRAYDEN LIPA #### [facility] [address] [place] [address] Dr. Grzegorz Wang Glucose [Mass/Vol] 79 mg/dL Normal 74-106 [facility] Comment on above: Performed By: #### A PHIL OWEN #### [facility] [address] [place] [address] Dr. Grzegorz Wang Potassium [Moles/Vol] 3.0 mmol/L Critically low 3.5-5.1 [facility] Comment on above: Performed By: #### A BRAYDEN LIPA #### [facility] [address] [place] [address] Dr. Grzegorz Wang Sodium [Moles/Vol] 144 mmol/L Normal 136-145 [facility] Comment on above: Performed By: #### A PHIL OWEN #### [facility] [address] [place] [address] Dr. Grzegorz Wang Urea nitrogen [Mass/Vol] 12.0 mg/dL Normal 7.0-18.0 [facility] Comment on above: Performed By: #### A PHIL OWEN #### [facility] [address] [place] [address] Dr. Grzegorz Wang Urea nitrogen/Creatinine [Mass ratio] 15.2 mg/mg Normal [facility] Comment on above: Performed By: #### A PHIL OWEN #### [facility] [address] [place] [address] Dr. Grzegorz Wang VITAMIN B12on 11-27-2021 Cobalamin (Vitamin B12) [Mass/Vol] 5661.0 pg/mL Critically high 193.0-986.0 [facility] Comment on above: Performed By: #### E RUR #### [facility] [address] [place] [address] Dr. Grzegorz Wang BNPon 11-26-2021 Natriuretic peptide B (Bld) [Mass/Vol] 1245.0 pg/mL Critically high <=900.0 [facility] Comment on above: Performed By: #### A PHIL OWEN #### [facility] [address] [place] [address] Dr. Grzegorz Wang Bacterial blood cultureOrder ed By: Ashleigh Rashid on 11-26-2021 Bacteria identified Cx Nom (Bld) NO GROWTH [address] [facility] CARDIAC BAMBI ADMITon 022 CK [Catalytic activity/Vol] 75 U/L Normal 26-192 [facility] Comment on above: Performed By: #### A MY, LIPA #### [facility] [address] [address] [address] Grzegorz Wang CK.MB [Mass/Vol] 1.58 ng/mL Normal <=3.60 [facility] Comment on above: Performed By: #### A MY, LIPA #### [facility] [address] [address] [address] Grzegorz Wang HSTROP 13.3 pg/mL Normal 4.0-51.3 [facility] Comment on above: Result Comment: CUT- OFF POINTS HAVE BEEN ESTABLISHED BASED ON THE FOURTH UNIVERSAL DEFINITIONS OF MYOCARDIAL INFARCTION. THE UPPER REFERENCE LIMIT (URL) OF TROPONIN, DEFINED THE 99TH PERCENTILE OF cTnI DISTRIBUTION IN A REFERENCE POPULATION, HAS BEEN CONFIRMED THE DECISION THRESHOLD FOR [place] DIAGNOSIS. Performed By: #### A BRAYDEN, LIPA #### [facility] [address] [address] [address] Grzegorz Wang MITZI 85 ng/mL Critically high 9-82 [facility] Comment on above: Performed By: #### A BRAYDEN, LIPA #### [facility] [address] [address] [address] Grzegorz Wang CBC AUTO DIFFon 11-26-2021 BASO # 0.0 103/ul Normal 0.0-0.1 [facility] Comment on above: Performed By: #### A BRAYDEN, LIPA #### [facility] [address] [address] [address] Grzegorz Wang Basophils/100 WBC (Bld) 0.5 % Normal 0.2-2.[address] [facility] Comment on above: Performed By: #### A MY, LIPA #### [facility] [address] [address] [address] Grzegorz Wang EO # 0.1 103/ul Normal 0.0-0.7 [facility] Comment on above: Performed By: #### A MY LIPA #### [facility] [address] [place] [address] Dr. Grzegorz Wang Eosinophils/100 WBC (Bld) 1.3 % Normal 0.9-7.0 [facility] Comment on above: Performed By: #### A BRAYDEN LIPA #### [facility] [address] [place] [address] Dr. Grzegorz Wang Erythrocyte distribution width (RBC) [Ratio] 16.8 % Critically high 11.0-15.0 [facility] Comment on above: Performed By: #### A BRAYDEN LIPA #### [facility] [address] [place] [address] Dr. Grzegorz Wang Hematocrit (Bld) [Volume fraction] 36.6 % Normal 36.0-48.0 [facility] Comment on above: Performed By: #### A BRAYDEN LIPA #### [facility] [address] [place] [address] Dr. Grzegorz Wang Hemoglobin (Bld) [Mass/Vol] 12.1 g/dL Normal 12.0-16.0 [facility] Comment on above: Performed By: #### A BRAYDEN LIPA #### [facility] [address] [place] [address] Dr. Grzegorz Wang IG # 0.03 10e3/ul Normal 0.00-0.03 [facility] Comment on above: Performed By: #### A BRAYDEN LIPA #### [facility] [address] [place] [address] Dr. Grzegorz Wang IG % 0.5 % Normal 0.0-0.5 [facility] Comment on above: Performed By: #### A BRAYDEN LIPA #### [facility] [address] [place] [address] Dr. Grzegorz Wang LYMPH # 0.9 103/ul Critically low 1.2-3.8 [facility] Comment on above: Performed By: #### A BRAYDEN LIPA #### [facility] [address] [place] [address] Dr. Grzegorz Wang Lymphocytes/100 WBC (Bld) 15.4 % Critically low 20.5-60.0 [facility] Comment on above: Performed By: #### A BRAYDEN LIPA #### [facility] [address] [place] [address] Dr. Grzegorz Wang MANUAL DIFF REQ NO Normal [facility] Comment on above: Performed By: #### A MY LIPA #### [facility] [address] [place] [address] Dr. Grzegorz Wang MCH (RBC) [Entitic mass] 27.7 pg Normal 26.7-34.0 [facility] Comment on above: Performed By: #### A BRAYDEN LIPA #### [facility] [address] [place] [address] Dr. Grzegorz Wang MCHC (RBC) [Mass/Vol] 33.1 g/dL Normal 29.9-35.2 [facility] Comment on above: Performed By: #### A BRAYDEN LIPA #### [facility] [address] [place] [address] Dr. Grzegorz Wang MCV (RBC) [Entitic vol] 83.8 fL Normal 81.0-99.[address] [facility] Comment on above: Performed By: #### A BRAYDEN LIPA #### [facility] [address] [place] [address] Dr. Grzegorz Wang MONO # 0.5 103/ul Normal 0.3-0.8 [facility] Comment on above: Performed By: #### A BRAYDEN LIPA #### [facility] [address] [place] [address] Dr. Grzegorz Wang Monocytes/100 WBC (Bld) 7.8 % Normal 1.7-12.[address] [facility] Comment on above: Performed By: #### A BRAYDEN LIPA #### [facility] [address] [place] [address] Dr. Grzegorz Wang NEUT # 4.5 103/ul Normal 1.4-6.5 [facility] Comment on above: Performed By: #### A BRAYDEN LIPA #### [facility] [address] [place] [address] Dr. Grzegorz Wang Neutrophils/100 WBC (Bld) 74.5 % Normal 43.0-75.0 [facility] Comment on above: Performed By: #### A BRAYDEN LIPA #### [facility] [address] [address] [address] Grzegorz Wang Platelet mean volume (Bld) [Entitic vol] 11.2 fL Normal 9.5-13.5 [facility] Comment on above: Performed By: #### Luna OWEN LIPA #### [facility] [address] [address] [address] Grzegorz Wang PLT 187 103/ul Normal 150-450 [facility] Comment on above: Performed By: #### Luna OWEN LIPA #### [facility] [address] [address] [address] Grzegorz Wang RBC 4.37 106/ul Normal 4.20-5.40 [facility] Comment on above: Performed By: #### Luna OWEN LIPA #### [facility] [address] [address] [address] Grzegorz Wang WBC 6.0 103/ul Normal 4.0-11.0 [facility] Comment on above: Performed By: #### Luna OWEN LIPA #### [facility] [address] [address] [address] ABD/PELVIS WO CONon [...] by: MANDI MANRIQUEZ Date: 2021-11-26 15:08 Normal [facility] CT CSPINE WO CONon 2 CT CSPINE [...] by: SHANIA WASHINGTON Date: 2021-11-26 14:44 Normal [facility] ER URINE PROFILEon 2 Bilirubin Ql (U) Negative Normal NEGATIVE [facility] Comment on above: Performed By: #### C BC #### [facility] [address] [place] [address] Dr. Grzegorz Wang Clarity (U) CLEAR Normal CLEAR [facility] Comment on above: Performed By: #### C BC #### [facility] [address] [address] [address] Grzegorz Wang Color (U) LT. YELLOW Normal YELLOW [facility] Comment on above: Performed By: #### C BC #### [facility] [address] [address] [address] Grzegorz PÉREZ A micrscopic examination will be performed if indicated. Normal [facility] Comment on above: Performed By: #### C BC #### [facility] [address] [address] [address] Grzegorz Wang Glucose Ql (U) Negative Normal NEGATIVE [facility] Comment on above: Performed By: #### C BC #### [facility] [address] [address] [address] Grzegorz Wang Hemoglobin Ql (U) TRACE-INTACT Abnormal NEGATIVE [facility] Comment on above: Performed By: #### C BC #### [facility] [address] [place] [address] Dr. Grzegorz Wang Ketones Ql (U) Negative Normal NEGATIVE [facility] Comment on above: Performed By: #### C BC #### [facility] [address] [place] [address] Dr. Grzegorz Wang LEUKOCYTES Negative Normal NEGATIVE [facility] Comment on above: Performed By: #### C BC #### [facility] [address] [place] [address] Dr. Grzegorz Wang Nitrite Ql (U) Negative Normal NEGATIVE [facility] Comment on above: Performed By: #### C BC #### [facility] [address] [place] [address] Dr. Grzegorz Wang pH (U) 5.5 [pH] Normal 5-9 [facility] Comment on above: Performed By: #### C BC #### [facility] [address] [place] [address] Dr. Grzegorz Wang SPEC GRAVITY <=1.005 Abnormal 1.005-<=1.[address] [place] [address] Comment on above: Performed By: #### C BC #### [facility] [address] [place] [address] Dr. Grzegorz Wang UA PROTEIN Negative Normal NEGATIVE/ TRACE [facility] Comment on above: Performed By: #### C BC #### [facility] [address] [place] [address] Dr. Grzegorz Wang UR MICRO IND INDICATED Normal [facility] Comment on above: Performed By: #### C BC #### [facility] [address] [place] [address] Dr. Grzegorz Wang Urobilinogen Qn (U) 0.2 {Lidya'U}/dL Normal 0.2 - 1. 0 [facility] Comment on above: Performed By: #### C BC #### [facility] [address] [place] [address] Dr. Grzegorz Wang PROF 14(COMP METB)on 11-26- 022 Albumin [Mass/Vol] 3.5 g/dL Normal 3.4-5.0 [facility] Comment on above: Performed By: #### A MY, LIPA #### [facility] [address] [address] [address] Grzegorz Wang Albumin/Globulin [Mass ratio] 1.1 {ratio} Normal [facility] Comment on above: Performed By: #### A MY, LIPA #### [facility] [address] [address] [address] Grzegorz Wang ALP [Catalytic activity/Vol] 89 U/L Normal 46-116 [facility] Comment on above: Performed By: #### A MY, LIPA #### [facility] [address] [address] [address] Grzegorz Wang ALT [Catalytic activity/Vol] 22 U/L Normal 14-59 [facility] Comment on above: Performed By: #### A MY, LIPA #### [facility] [address] [address] [address] Grzegorz Wang Anion gap [Moles/Vol] 10.2 mmol/L Normal [facility] Comment on above: Performed By: #### A MY, LIPA #### [facility] [address] [address] [address] Grzegorz Wang AST [Catalytic activity/Vol] 18 U/L Normal 15-37 [facility] Comment on above: Performed By: #### A MY, LIPA #### [facility] [address] [address] [address] Grzegorz Wang Bilirubin [Mass/Vol] 0.6 mg/dL Normal 0.2-1.0 [facility] Comment on above: Performed By: #### A MY, LIPA #### [facility] [address] [address] [address] Grzegorz Wang Calcium [Mass/Vol] 9.1 mg/dL Normal 8.5-10.1 [facility] Comment on above: Performed By: #### A MY, LIPA #### [facility] [address] [address] [address] Grzegorz Wang Chloride [Moles/Vol] 106 mmol/L Normal 98-107 [facility] Comment on above: Performed By: #### A MY, LIPA #### [facility] [address] [address] [address] Grzegorz Wang CO2 [Moles/Vol] 29.5 mmol/L Normal 21.0-32.0 [facility] Comment on above: Performed By: #### A MY, LIPA #### [facility] [address] [address] [address] Grzegorz Wang Creatinine [Mass/Vol] 0.86 mg/dL Normal 0.55-1.02 [facility] Comment on above: Performed By: #### A MY, LIPA #### [facility] [address] [address] [address] Grzegorz Wang EGFR-AF GERMAN >60 Normal >=60 [facility] Comment on above: Performed By: #### A MY, LIPA #### [facility] [address] [address] [address] Grzegorz Wang EGFR-NON AF GERMAN >60 Normal >=60 [facility] Comment on above: Performed By: #### A MY, LIPA #### [facility] [address] [address] [address] Grzegorz Wang Globulin (S) [Mass/Vol] 3.1 g/dL Normal [facility] Comment on above: Performed By: #### A MY, LIPA #### [facility] [address] [address] [address] Grzegorz Wang Glucose [Mass/Vol] 98 mg/dL Normal 74-106 [facility] Comment on above: Performed By: #### A MY, LIPA #### [facility] [address] [address] [address] Grzegorz Wang Potassium [Moles/Vol] 2.7 mmol/L Critically low 3.5-5.1 [facility] Comment on above: Performed By: #### A MY, LIPA #### [facility] [address] [address] [address] Grzegorz Wang Protein [Mass/Vol] 6.6 g/dL Normal 6.4-8.2 [facility] Comment on above: Performed By: #### A BRAYDEN LIPA #### [facility] [address] [place] [address] Dr. Grzegorz Wang Sodium [Moles/Vol] 143 mmol/L Normal 136-145 [facility] Comment on above: Performed By: #### A BRAYDEN LIPA #### [facility] [address] [place] [address] Dr. Grzegorz Wang Urea nitrogen [Mass/Vol] 12.0 mg/dL Normal 7.0-18.0 [facility] Comment on above: Performed By: #### A BRAYDEN LIPA #### [facility] [address] [place] [address] Dr. Grzegorz Wang Urea nitrogen/Creatinine [Mass ratio] 14.0 mg/mg Normal [facility] Comment on above: Performed By: #### A BRAYDEN LIPA #### [facility] [address] [place] [address] Dr. Grzegorz Wang PROTIMEon 11-26-2021 INR Coag (PPP) [Relative time] 1.00 {INR} Normal [facility] Comment on above: Performed By: #### C BC #### [facility] [address] [place] [address] Dr. Grzegorz Wang INR GUIDELINES SEE BELOW Normal [facility] Comment on above: Result Comment: DENTON RED INR: 2.0 - 3.0 CONDITIONS NOT LISTED BELOW 2.5 - 3.5 FOR PROSTHETIC HEART VALVE REPLACEMENT 2.5 - 3.5 RECURRENT THROMBOSIS Performed By: #### C BC #### [facility] [address] [place] [address] Dr. Grzegorz Wang PT Coag (PPP) [Time] 10.8 s Normal 9.0-11.6 [facility] Comment on above: Performed By: #### C BC #### [facility] [address] [place] [address] Dr. Grzegorz Wang PTTon 11-26-2021 aPTT Coag (Bld) [Time] 23.1 s Normal 22.3-36.2 [facility] Comment on above: Performed By: #### C BC #### [facility] [address] [place] [address] Dr. Grzegorz Wang URINE MICROSCOPIC ONLYon BACTERIA NONE SEEN Normal NONE SEEN [facility] Comment on above: Performed By: #### C BC #### [facility] [address] [place] [address] Dr. Grzegorz Wang Bacteria identified Cx Nom (U) NOT INDICATED Normal [facility] Comment on above: Performed By: #### C BC #### [facility] [address] [place] [address] Dr. Grzegorz Wang CAST NONE SEEN Normal NONE SEEN [facility] Comment on above: Performed By: #### C BC #### [facility] [address] [place] [address] Dr. Grzegorz Wang Crystals LM Nom (Urine sed) NONE SEEN Normal NONE SEEN [facility] Comment on above: Performed By: #### C BC #### [facility] [address] [place] [address] Dr. Grzegorz Wang Epithelial cells LM Ql (Urine sed) FEW Abnormal NONE SEEN /RARE [facility] Comment on above: Performed By: #### C BC #### [facility] [address] [place] [address] Dr. Grzegorz Wang MUCOUS NONE SEEN Normal NONE SEEN [facility] Comment on above: Performed By: #### C BC #### [facility] [address] [place] [address] Dr. Grzegorz Wang RBC 0-2 Normal 0-2 [facility] Comment on above: Performed By: #### C BC #### [facility] [address] [place] [address] Dr. Grzegorz Wang WBC 0-2 Abnormal NONE SEEN [facility] Comment on above: Performed By: #### C BC #### [facility] [address] [place] [address] Dr. Grzegorz Wang XR CHEST 1 Von [...] by: NATACHA CERNA Date: 2021-11-26 14:[address] [facility] [address] BRAIN HEAD WO CONTRASTon 11-24-2021 CT [...] AGUILAR MD Signed Out: 11/24/21 14:21:18 Normal [facility] ED Adult Data - Texton 11-24 ED [...] PNED ; Probability: 0 ; Diagnosis Code: [id number] Fall Date: 11/24/2021 ; Diagnosis Type: Reason For Visit ; Confirmation: Confirmed ; Clinical Dx: Fall ; Classification: Medical ; Clinical Service: Emergency medicine ; Code: PNED ; Probability: 0 ; Diagnosis Code: [id number] Procedure History ED Devices Present on Arrival [...] risk situation (congregated living, hemodialysis, infusion clinic, retirement, assisted living, half-way, homeless intermediate, etc.)? : No Jennifer Mccarthy RN - 11/24/2021 15:25 EDT Normal [facility] ED Discharge Educationon ED Discharge Education Dermatology Cuts Closed With [place]: Care Instructions Your Care Instructions A cut can happen anywhere on your body. The doctor used kemi to close the cut. [place] easily and quickly close a cut, which [...] your doctor if you can take an [id number] medicine. When should you call for help? [...] Where can you learn more? Go to https://www.[email or web address]/patientEd Enter E525 in the search box to learn more about Cuts Closed With [place]: Care Instructions. Current as of: April 08, 2019 Content Version: 12.7 ? [employer]. Care instructions adapted under license by your healthcare professional. If you have questions about a medical condition or this instruction, always ask your healthcare professional. [employer] disclaims any warranty or liability for your [...] she will (more content not included)... Normal [facility] ED Emergency Severity Index Adult-Texton 11-24-2021 ED [...] Mccarthy RN - 11/24/2021 12:33 EDT Normal [facility] ED Nrsing Adlt Triage Sep Sc rning - Texton 11-24-2021 ED Nrsing Adlt Triage Sep Scrning - Text ED Nursing Adult Triage Sepsis Screening Tool Entered On: 11/24/2021 13:00 EDT Performed On: 11/24/2021 13:00 EDT by Jennifer Mccarthy RN Adult Sepsis Screening Sepsis Infection Screening ED : Yes Sepsis Vitals Screening ED : None/ NA(Peds) Jennifer Mccarthy RN - 11/24/2021 13:00 EDT Normal [facility] ED Patient Summaryon 022 ED Patient Summary [facility] Emergency Department Discharge Instructions [address] [place] [address] \.br\(Patient Copy)\.br\ \.br\Name: OZZIE GIFFORD : 1950 \.br\Allergies: penicillin\.br\Diagno sis: Accidental fall; CHI (closed head injury); Contusion of rib on right side; Laceration of scalp\.br\ \.br\ Visit Date: 11/24/2021 12:30:03 \.br\ Current Date Time: 11/24/2021 17:30:08 \.br\Address: [address] [place] [address] [place] [address] \.br\ \.br\ \.br\Primary Care Provider: \.br\Name: NO FAMILY PHYSICIAN, 837\.br\Phone: \.br\ \.br\Emergency Department Care Providers: \.br\ Primary Physician: LUIS MCKEON MD \.br\ \.br\ \.br\.br\Thank you for choosing [facility] for your emergency care. You are very important to us. Our goal is to demonstrate our high quality medical care, and provide you with a very good patient experience.\.br\.br\ You may receive a survey about our service. Please take the time to complete the survey and return it so we can continue to enhance our service.\.br\.br\Maxx nk you again for allowing the [facility] Emergency Department to care for your medical needs. If you have questions about your care or follow up information please contact us at [phone].\.br\.b r\ Follow-Up Instructions\.br\____ _\.br\ZOZIE GIFFORD has been given these follow-up instructions:\.br\.b r\.br\With: Address: When: \.br\[facility], [facility] [address], [address] [place] [address]\.br\ Business (1) Within 7 to 10 days \.br\.br\.br\With: Address: When: \.br\[address] [facility] [address] Within 3 to 5 days \.br\.br\.br\.br\ .br\Patient Education Materials\.br\ \. br\OZZIE GIFFORD has been given the following patient education materials:\.br\.br\C uts Closed With [place]: Care Instructions\.br\Your Care Instructions\.br\A cut can happen anywhere on your body.\.br\The doctor used kemi to close the cut. [place] easily and quickly close a cut, which [...] your doctor if you can take an dbup-bug-dhqbbsh medicine.\.br\When should you call for help?\.br\ Call [...] get b (more content not included)... Normal [facility] ED Physician Reporton 2021 ED Physician Report [...] The location where the incident occurred was [facility]. Location: Posterior head. The character of symptoms is pain. Therapy today: see nurses notes. Associated symptoms: denies loss of consciousness. This is a 71 y/o female presenting to the ED via EMS for evaluation of a mechanical fall. [place] [employer] and she was going down steps and [...] tenderness, no swelling, no deformity. Psychiatric: Cooperative. Yenni coma scale Eye response: 4 /4, verbal [...] WO CONTRAST (more content not included)... Normal [facility] ED Pre-Arrival Formon 2021 ED Pre-Arrival Form Pre-Arrival Summary Name: KARTIK, Current Date: 11/24/2021 12:31:19 EDT Gender: Date of : Age: Pre-Arrival Type: EMS ETA: 11/24/2021 12:53:00 EDT Primary Care Physician: Presenting Problem: Pre-Arrival User: Kailyn Jacobs RN Referring Source: Location: [address] [place] [address] Emergency Department [address] [place] [address] Notes: Vital Signs: Doctor Call Back: DNR Status: Miscellaneous Issues: Normal [facility] ED Progress Noteon ED Progress Note Pt [...] understanding, pt ambulatory with steady gait Normal [facility] ED Triage Adult-Texton 11-24 ED Triage Adult-Text ED Triage Entered O n: 11/24/2021 13:00 EDT Performed On: 11/24/2021 12:59 EDT by Jennifer Mccarthy RN Triage (As Of: 11/24/2021 13:00:25 EDT) Diagnoses(Active) Fall Date: 11/24/2021 ; Diagnosis Type: Reason For Visit ; Confirmation: Confirmed ; Clinical Dx: Fall ; Classification: Medical ; Clinical Service: Non-Specified ; Code: PNED ; Probability: 0 ; Diagnosis Code: [id number] (As Of: 11/24/2021 13:00:25 EDT) Vitals/Ht/Wt Temperature [...] Mccarthy RN - 11/24/2021 12:59 EDT Normal [facility] Urine culture routineOrdered By: Rafiq Bahena on 11-23-2021 Bacteria identified Cx Nom (U) Escherichia coli [facility] Albumin [Mass/volume] in Ser um or PlasmaOrdered By: Ashleigh Rashid on 11-22-2021 Albumin [Mass/Vol] 3.0 g/dL 3.2-5.5 [facility] Basophils Auto (Bld) [#/Vol] Ordered By: Ashleigh Rashid on 11-22-2021 Basophils (Bld) [#/Vol] 0.0 10*3/uL 0.0-0.2 [facility] Basophils/100 WBC Auto (Bld) Ordered By: Ashleigh Rashid on 11-22-2021 Basophils/100 WBC (Bld) 0.6 % . [facility] Creatinine and Glomerular fi ltration rate.predicted panel (S/P/Bld)Ordered By: Ashleigh Rashid on 11-22-2021 Creatinine [Mass/Vol] 1.10 mg/dL 0.44-1.03 [facility] Comment on above: Delta: 2.08 on 11/21 Eosinophils Auto (Bld) [#/Vo l]Ordered By: Ashleigh Rashid on 11-22-2021 Eosinophils (Bld) [#/Vol] 0.2 10*3/uL 0.0-0.45 [facility] Eosinophils/100 WBC Auto (Bl d)Ordered By: Ashleigh Rashid on 11-22-2021 Eosinophils/100 WBC (Bld) 4.4 % . [facility] Erythrocyte distribution wid th Auto (RBC) [Ratio]Ordered By: Ashleigh Rashid on 11-22-2021 Erythrocyte distribution width (RBC) [Ratio] 20.7 % 11.9-15.3 [facility] Estimated glomerular filtrat ion rate (GFR) non- AmericanOrdered By: Ashleigh Rashid on 11-22-2021 GFR/1.73 sq M.predicted among non-blacks MDRD (S/P/Bld) [Vol rate/Area] 49 mL/Min [facility] Globulin Calc (S) [Mass/Vol] Ordered By: Ashleigh Rashid on 11-22-2021 Globulin (S) [Mass/Vol] 2.4 g/dL [facility] Hematocrit Auto (Bld) [Volum e fraction]Ordered By: Ashleigh Rashid on 11-22-2021 Hematocrit (Bld) [Volume fraction] 36.9 % 34.0-46.4 [facility] Hemoglobin [Mass/volume] in BloodOrdered By: Ashleigh Rashid on 11-22-2021 Hemoglobin (Bld) [Mass/Vol] 12.1 g/dL 11.8-15.4 [facility] Laboratory - Chemistry and C hemistry - challengeOrdered By: Ashleigh Rashid on 11-22-2021 Magnesium [Mass/Vol] 2.1 mg/dL 1.6-2.6 [facility] Laboratory - Hematology and Cell countsOrdered By: Ashleigh Rashid on 11-22-2021 Nucleated RBC/100 WBC (Bld) [Ratio] 0.1 % 0-0.5 [facility] Leukocytes [#/volume] in Blo od by Automated countOrdered By: Ashleigh Rashid on 11-22-2021 WBC (Bld) [#/Vol] 4.7 10*3/uL 4.5-11.0 [facility] Lymphocytes Auto (Bld) [#/Vo l]Ordered By: Ashleigh Rashid on 11-22-2021 Lymphocytes (Bld) [#/Vol] 1.2 10*3/uL 1.00-4.8 [facility] Lymphocytes/100 WBC Auto (Bl d)Ordered By: Ashleigh Rashid on 11-22-2021 Lymphocytes/100 WBC (Bld) 26.0 % . [facility] MCH Auto (RBC) [Entitic mass ]Ordered By: Ashleigh Rashid on 11-22-2021 MCH (RBC) [Entitic mass] 27.2 pg 24.7-34.3 [facility] MCHC Auto (RBC) [Mass/Vol]Or dered By: Ashleigh Rashid on 11-22-2021 MCHC (RBC) [Mass/Vol] 32.6 g/dL 32.0-35.0 [facility] MCV Auto (RBC) [Entitic vol] Ordered By: Ashleigh Rashid on 11-22-2021 MCV (RBC) [Entitic vol] 83.5 fL 80-100 [facility] Monocytes Auto (Bld) [#/Vol] Ordered By: Ashleigh Rashid on 11-22-2021 Monocytes (Bld) [#/Vol] 0.4 10*3/uL 0.0-0.8 [facility] Monocytes/100 WBC Auto (Bld) Ordered By: Ashleigh Rashid on 11-22-2021 Monocytes/100 WBC (Bld) 8.4 % . [facility] Neutrophils Auto (Bld) [#/Vo l]Ordered By: Ashleigh Rashid on 11-22-2021 Neutrophils (Bld) [#/Vol] 2.8 10*3/uL 1.8-7.7 [facility] Neutrophils/100 WBC Auto (Bl d)Ordered By: Ashleigh Rashid on 11-22-2021 Neutrophils/100 WBC (Bld) 60.6 % . [facility] No Panel InformationOrdered By: Ashleigh Rashid on 11-22-2021 Estimated GFR () 59 mL/Min [facility] Comment on above: GFR estimated refere nce range: According to KDOQI guidelines, <60 ml/min/1.73m2 is sufficient to diagnose a patient with chronic kidney disease. Pharmacy Creatinine Clearance (Chem 44.22 [facility] Platelet mean volume Auto (B ld) [Entitic vol]Ordered By: Ashleigh Rashid on 11-22-2021 Platelet mean volume (Bld) [Entitic vol] 9.7 fL 6.3-10.7 [facility] Platelets Auto (Bld) [#/Vol] Ordered By: Ashleigh Rashid on 11-22-2021 Platelets (Bld) [#/Vol] 184 10*3/uL 150-450 [facility] Protein [Mass/volume] in Ser um or PlasmaOrdered By: Ashleigh Rashid on 11-22-2021 Protein [Mass/Vol] 5.4 g/dL 6.1-7.9 [facility] RBC Auto (Bld) [#/Vol]Ordere d By: Ashleigh Rashid on 11-22-2021 RBC (Bld) [#/Vol] 4.43 10*6/uL 3.60-5.00 [facility] Serum or plasma alanine zapata otransferase measurement without P-5'-P (enzymatic activiOrdered By: Ashleigh Rashid on 11-22-2021 ALT No additional P-5'-P [Catalytic activity/Vol] 16 U/L 10-60 [facility] Serum or plasma albumin/glob ulin mass ratioOrdered By: Ashleigh Rashid on 11-22-2021 Albumin/Globulin [Mass ratio] 1.3 {ratio} [facility] Serum or plasma alkaline brandy sphatase measurement (enzymatic activity/volume)Ordered By: Ashleigh Rashid on 11-22-2021 ALP [Catalytic activity/Vol] 70 U/L 32-92 [facility] Serum or plasma anion gap de terminationOrdered By: Ashleigh Rashid on 11-22-2021 Anion gap [Moles/Vol] 12.2 mmol/L 6.0-15.0 [facility] Serum or plasma aspartate am inotransferase measurement (enzymatic activity/volume)Ordered By: Ashleigh Rashid on 11-22-2021 AST [Catalytic activity/Vol] 15 U/L 10-42 [facility] Serum or plasma calcium lay urement (mass/volume)Ordered By: Ashleigh Rashid on 11-22-2021 Calcium [Mass/Vol] 8.9 mg/dL 8.2-10.2 [facility] Serum or plasma chloride rosaline surement (moles/volume)Ordered By: Ashleigh Rashid on 11-22-2021 Chloride [Moles/Vol] 115 mmol/L 95-114 [facility] Serum or plasma glucose lay urement (mass/volume)Ordered By: Ashleigh Rashid on 11-22-2021 Glucose [Mass/Vol] 93 mg/dL 70-100 [facility] Comment on above: ADA recommended refe rence rangeRandom Glucose Reference Range is dependent on time and content of last meal. Glucose of more than 200 mg/dL in a nonstressed, ambulatory subject supports the diagnosis of Diabetes Mellitus. Serum or plasma potassium me asurement (moles/volume)Ordered By: Ashleigh Rashid on 11-22-2021 Potassium [Moles/Vol] 3.1 mmol/L 3.5-5.1 [facility] Serum or plasma sodium measu rement (moles/volume)Ordered By: Ashleigh Rashid on 11-22-2021 Sodium [Moles/Vol] 147 mmol/L 136-146 [facility] Serum or plasma total biliru bin measurement (mass/volume)Ordered By: Ashleigh Rashid on 11-22-2021 Bilirubin [Mass/Vol] 0.7 mg/dL 0.3-1.2 [facility] Serum or plasma total carbon dioxide measurement (moles/volume)Ordered By: Ashleigh Rashid on 11-22-2021 CO2 [Moles/Vol] 22.9 mmol/L 22.0-30.0 [facility] Serum or plasma urea nitroge n measurement (mass/volume)Ordered By: Ashleigh Rashid on 11-22-2021 Urea nitrogen [Mass/Vol] 28 mg/dL 11-03 [facility] Amphetamine Screen Ql (U)Ord ered By: Rafiq Bahena on 11-21-2021 Amphetamines Ql (U) Negative Negative [facility] Automated erythrocytes count in urine sediment (number/area)Ordered By: Rafiq Bahena on 11-21-2021 RBC Auto (Urine sed) [#/Area] 0-1 [HPF] 0-4 [facility] Automated leukocytes count i n urine sediment (number/area)Ordered By: Rafiq Bahena on 11-21-2021 WBC Auto (Urine sed) [#/Area] 3-4 [HPF] 0-4 [facility] Barbiturates [Presence] in U rineOrdered By: Rafiq Bahena on 11-21-2021 Barbiturates Ql (U) Negative Negative [facility] Basophils Auto (Bld) [#/Vol] Ordered By: Rafiq Bahena on 11-21-2021 Basophils (Bld) [#/Vol] 0.0 10*3/uL 0.0-0.2 [facility] Basophils/100 WBC Auto (Bld) Ordered By: Rafiq Bahena on 11-21-2021 Basophils/100 WBC (Bld) 0.8 % . [facility] Benzodiazepines [Presence] i n UrineOrdered By: Rafiq Bahena on 11-21-2021 Benzodiazepines Ql (U) Negative Negative [facility] Bilirubin Test strip Ql (U)O rdered By: Rafiq Bahena on 11-21-2021 Bilirubin Ql (U) Negative Negative [facility] Blood hemoglobin measurement (mass/volume)Ordered By: Rafiq Bahena on 11-21-2021 Hemoglobin (Bld) [Mass/Vol] 11.6 g/dL 11.8-15.4 [facility] Blood leukocytes automated c ount (number/volume)Ordered By: Rafiq Bahena on 11-21-2021 WBC (Bld) [#/Vol] 5.3 10*3/uL 4.5-11.0 [facility] Body fluid albumin measureme nt (mass/volume)Ordered By: Rafiq Bahena on 11-21-2021 Albumin (Body fld) [Mass/Vol] 3.4 g/dL 3.2-5.5 [facility] COVID CepheidOrdered By: Dagoberto nadege Gay on 11-21-2021 SARS-CoV-2 (COVID-19) Ab IA Ql Negative Negative [facility] Comment on above: This is a duplicate CepQuikCycleid Xpert Xpress CoV-2/Flu/RSV Plus RNA by RT-PCR result to be used for statistical tracking purpose only. SARS-CoV-2 (COVID-19) RNA SIOBHAN+probe Ql (Unsp spec) [facility] COVID-19 Positive/NegativeOr dered By: Rafiq Bahena on 11-21-2021 SARS-CoV-2 (COVID-19) N gene SIOBHAN+probe Ql (Resp) Indeterminate Negative [facility] Comment on above: Testing for SARS-CoV -2 by RT-PCRThis test was developed and its performance characteristics determined by [facility] ([employer] and validated at the [facility]. This test has not been FDA cleared [...] (COVID-19) Ag IA.rapid Ql (Resp) Negative Negative [facility] Comment on above: This is a duplicate Sissy SARS Antigen (WALKER) result to be used for statistical tracking purpose only. Cannabinoids [Presence] in U rine by Screen methodOrdered By: Rafiq Bahena on 11-21-2021 Cannabinoids Screen Ql (U) Negative Negative [facility] Comment on above: These are unconfirme d results and should not be used for legal purposes. Drug Cut-Off Concentration: AMPH 1000 ng/mL RONALD 200 ng/mL CARMELA 200 ng/mL COCM 300 ng/mL OP 300 ng/mL PCP 25 ng/mL THC 20 ng/mL Color Auto (U)Ordered By: Vishnu Bahena on 11-21-2021 Color (U) Yellow Yellow [facility] Creatinine and Glomerular fi ltration rate.predicted panel (S/P/Bld)Ordered By: Rafiq Bahena on 11-21-2021 Creatinine [Mass/Vol] 2.08 mg/dL 0.44-1.03 [facility] Eosinophils Auto (Bld) [#/Vo l]Ordered By: Rafiq Bahena on 11-21-2021 Eosinophils (Bld) [#/Vol] 0.2 10*3/uL 0.0-0.45 [facility] Eosinophils/100 WBC Auto (Bl d)Ordered By: Rafiq Bahena on 11-21-2021 Eosinophils/100 WBC (Bld) 3.7 % . [facility] Erythrocyte distribution wid th Auto (RBC) [Ratio]Ordered By: Rafiq Bahena on 11-21-2021 Erythrocyte distribution width (RBC) [Ratio] 20.4 % 11.9-15.3 [facility] Estimated glomerular filtrat ion rate (GFR) non- AmericanOrdered By: Rafiq Bahena on 11-21-2021 GFR/1.73 sq M.predicted among non-blacks MDRD (S/P/Bld) [Vol rate/Area] 23 mL/Min [facility] Globulin Calc (S) [Mass/Vol] Ordered By: Rafiq Bahena on 11-21-2021 Globulin (S) [Mass/Vol] 2.1 g/dL [facility] Glucose Glucometer (BldC) [M ass/Vol]Ordered By: Rafiq Bahena on 11-21-2021 Glucose [Mass/Vol] 134 mg/dL [facility] Comment on above: Random Glucose Refer ence Range is dependent on time and content of last meal. Glucose of more than 200 mg/dL in a nonstressed, ambulatory subject supports the diagnosis of Diabetes Mellitus. Hematocrit Auto (Bld) [Volum e fraction]Ordered By: Rafiq Bahena on 11-21-2021 Hematocrit (Bld) [Volume fraction] 35.6 % 34.0-46.4 [facility] Ketones Auto test strip (U) [Mass/Vol]Ordered By: Rafiq Bahena on 11-21-2021 Ketones (U) [Mass/Vol] Negative Negative Fi [facility] Laboratory - Chemistry and C hemistry - challengeOrdered By: Rafiq Bahena on 11-21-2021 CO2 [Moles/Vol] 23.8 mmol/L 23.0-27.0 [facility] HCO3 (Bld) [Moles/Vol] 22.6 mmol/L 23.0-29.0 [facility] Laboratory - Drug toxicology Ordered By: Rafiq Bahena on 11-21-2021 Opiates Ql (U) Negative Negative [facility] Laboratory - Hematology and Cell countsOrdered By: Rafiq Bahena on 11-21-2021 Nucleated RBC/100 WBC (Bld) [Ratio] 0.0 % 0-0.5 [facility] Laboratory - UrinalysisOrder ed By: Rafiq Bahena on 11-21-2021 Hyaline casts LM Ql (Urine sed) 0-8 [LPF] 0-8 [facility] Lymphocytes Auto (Bld) [#/Vo l]Ordered By: Rafiq Bahena on 11-21-2021 Lymphocytes (Bld) [#/Vol] 1.1 10*3/uL 1.00-4.8 [facility] Lymphocytes/100 WBC Auto (Bl d)Ordered By: Rafiq Bahena on 11-21-2021 Lymphocytes/100 WBC (Bld) 20.4 % . [facility] MCH Auto (RBC) [Entitic mass ]Ordered By: Rafiq Bahena on 11-21-2021 MCH (RBC) [Entitic mass] 26.9 pg 24.7-34.3 [facility] MCHC Auto (RBC) [Mass/Vol]Or dered By: Rafiq Bahena on 11-21-2021 MCHC (RBC) [Mass/Vol] 32.6 g/dL 32.0-35.0 [facility] MCV Auto (RBC) [Entitic vol] Ordered By: Rafiq Bahena on 11-21-2021 MCV (RBC) [Entitic vol] 82.5 fL 80-100 [facility] Monocyte %Ordered By: Rafiq Bahena on 11-21-2021 Monocyte % 17 umol/L 11- [facility] Monocytes Auto (Bld) [#/Vol] Ordered By: Rafiq Bahena on 11-21-2021 Monocytes (Bld) [#/Vol] 0.5 10*3/uL 0.0-0.8 [facility] Monocytes/100 WBC Auto (Bld) Ordered By: Rafiq Bahena on 11-21-2021 Monocytes/100 WBC (Bld) 9.9 % . [facility] Neutrophils Auto (Bld) [#/Vo l]Ordered By: Rafiq Bahena on 11-21-2021 Neutrophils (Bld) [#/Vol] 3.5 10*3/uL 1.8-7.7 [facility] Neutrophils/100 WBC Auto (Bl d)Ordered By: Rafiq Bahena on 11-21-2021 Neutrophils/100 WBC (Bld) 65.2 % . [facility] Nitrite Test strip Ql (U)Ord ered By: Rafiq Bahena on 11-21-2021 Nitrite Ql (U) Positive Negative [facility] No Panel InformationOrdered By: Ashleigh Rashid on 11-21-2021 Vitamin B12 Level > 7500 pg/mL 180-914 [facility] No Panel InformationOrdered By: Rafiq Bahena on 11-21-2021 Arterial Blood Base Excess -1.9 mmol/L -3.0-3.0 [facility] Arterial Blood Oxygen Content 7.1 mmol/L 6.6-9.7 [facility] Arterial Blood Oxygen Saturation 95.9 % 95.0-100.0 [facility] Arterial Blood Partial Pressure CO2 37.8 mm[Hg] 35.0-45.0 [facility] Arterial Blood Partial Pressure O2 82.7 mm[Hg] 80.0-100.0 [facility] Arterial Blood pH 7.40 7.35-7.45 [facility] Blood Gas Critical Value See comment [facility] Comment on above: Critical Value sargent d on: 11/21/2021 at 06:17 Blood Gas Sample Site Left radial [facility] FiO2 21 % [facility] Estimated GFR () 28 mL/Min [facility] Comment on above: GFR estimated refere nce range: According to KDOQI guidelines, <60 ml/min/1.73m2 is sufficient to diagnose a patient with chronic kidney disease. Pharmacy Creatinine Clearance (Chem 22.98 [facility] Bedside Glucose Comment Glu2: cleaned meter [facility] Phencyclidine Screen Ql (U)O rdered By: Rafiq Bahena on 11-21-2021 Phencyclidine Ql (U) Negative Negative [facility] Platelet mean volume Auto (B ld) [Entitic vol]Ordered By: Rafiq Bahena on 11-21-2021 Platelet mean volume (Bld) [Entitic vol] 9.6 fL 6.3-10.7 [facility] Platelets Auto (Bld) [#/Vol] Ordered By: Rafiq Bahena on 11-21-2021 Platelets (Bld) [#/Vol] 140 10*3/uL 150-450 [facility] Protein Auto test strip (U) [Mass/Vol]Ordered By: Rafiq Bahena on 11-21-2021 Protein (U) [Mass/Vol] Negative Negative [facility] Protein [Mass/volume] in Ser um or PlasmaOrdered By: Rafiq Bahena on 11-21-2021 Protein [Mass/Vol] 5.5 g/dL 6.1-7.9 [facility] RBC Auto (Bld) [#/Vol]Ordere d By: Rafiq Bahena on 11-21-2021 RBC (Bld) [#/Vol] 4.31 10*6/uL 3.60-5.00 [facility] Serum or plasma alanine zapata otransferase measurement without P-5'-P (enzymatic activiOrdered By: Rafiq Bahena on 11-21-2021 ALT No additional P-5'-P [Catalytic activity/Vol] 17 U/L 10-60 [facility] Serum or plasma albumin/glob ulin mass ratioOrdered By: Rafiq Bahena on 11-21-2021 Albumin/Globulin [Mass ratio] 1.6 {ratio} [facility] Serum or plasma alkaline brandy sphatase measurement (enzymatic activity/volume)Ordered By: Rafiq Bahena on 11-21-2021 ALP [Catalytic activity/Vol] 74 U/L 32-92 [facility] Serum or plasma anion gap de terminationOrdered By: Rafiq Bahena on 11-21-2021 Anion gap [Moles/Vol] 14.6 mmol/L 6.0-15.[address] [facility] Serum or plasma aspartate am inotransferase measurement (enzymatic activity/volume)Ordered By: Rafiq Bahena on 11-21-2021 AST [Catalytic activity/Vol] 19 U/L 10-42 [facility] Serum or plasma calcium lay urement (mass/volume)Ordered By: Rafiq Bahena on 11-21-2021 Calcium [Mass/Vol] 9.1 mg/dL 8.2-10.2 [facility] Serum or plasma chloride rosaline surement (moles/volume)Ordered By: Rafiq Bahena on 11-21-2021 Chloride [Moles/Vol] 107 mmol/L 95-114 [facility] Serum or plasma ethanol lay urement (mass/volume)Ordered By: Rafiq Bahena on 11-21-2021 Ethanol [Mass/Vol] mg/dL [facility] Ethanol [Mass/Vol] TNP [facility] Comment on above: Test not performed Serum or plasma glucose lay urement (mass/volume)Ordered By: Rafiq Bahena on 11-21-2021 Glucose [Mass/Vol] 124 mg/dL 70-100 [facility] Comment on above: ADA recommended refe rence rangeRandom Glucose Reference Range is dependent on time and content of last meal. Glucose of more than 200 mg/dL in a nonstressed, ambulatory subject supports the diagnosis of Diabetes Mellitus. Serum or plasma potassium me asurement (moles/volume)Ordered By: Rafiq Bahena on 11-21-2021 Potassium [Moles/Vol] 3.1 mmol/L 3.5-5.1 [facility] Serum or plasma sodium measu rement (moles/volume)Ordered By: Rafiq Bahena on 11-21-2021 Sodium [Moles/Vol] 142 mmol/L 136-146 [facility] Serum or plasma total biliru bin measurement (mass/volume)Ordered By: Rafiq Bahena on 11-21-2021 Bilirubin [Mass/Vol] 0.3 mg/dL 0.3-1.2 [facility] Serum or plasma total carbon dioxide measurement (moles/volume)Ordered By: Rafiq Bahena on 11-21-2021 CO2 [Moles/Vol] 23.5 mmol/L 22.0-30.0 [facility] Serum or plasma urea nitroge n measurement (mass/volume)Ordered By: Rafiq Bahena on 11-21-2021 Urea nitrogen [Mass/Vol] 49 mg/dL 9-23 [facility] Specific gravity Auto test s trip (U) [Rel density]Ordered By: Rafiq Bahena on 11-21-2021 Specific gravity (U) [Rel density] 1.010 1.001-1.030 [facility] Squamous epithelial cells de tection in urine sediment by light microscopyOrdered By: Rafiq Bahena on 11-21-2021 Epithelial cells.squamous LM Ql (Urine sed) 1-2 [HPF] 0-2 [facility] TSH DL <= 0.005 mIU/L QnOrde red By: Rafiq Bahena on 11-21-2021 TSH Qn 2.40 m[IU]/L 0.45-5.33 [facility] Thyroxine (T4) free [Mass/vo lume] in Serum or PlasmaOrdered By: Rafiq Bahena on 11-21-2021 Free T4 [Mass/Vol] 0.68 ng/dL 0.61-1.12 [facility] Troponin I.cardiac [Mass/vol ume] in Serum or Plasma by High sensitivity methodOrdered By: Rafiq Bahena on 11-21-2021 Troponin I.cardiac High sensitivity method [Mass/Vol] 6 pg/mL 0-15 [facility] Urine bacteria detection by automated methodOrdered By: Rafiq Bahena on 11-21-2021 Bacteria Auto Ql (U) 2+ None Seen [facility] Urine clarity by refractomet ry automatedOrdered By: Rafiq Bahena on 11-21-2021 Clarity Refractometry automated (U) Clear Clear [facility] Urine cocaine detectionOrder ed By: Rafiq Bahena on 11-21-2021 Cocaine Ql (U) Negative Negative [facility] Urine glucose measurement by automated test strip (mass/volume)Ordered By: Rafiq Bahena on 11-21-2021 Glucose Auto test strip (U) [Mass/Vol] Normal mg/dL Normal [facility] Urine hemoglobin detection b y automated test stripOrdered By: Rafiq Bahena on 11-21-2021 Hemoglobin Auto test strip Ql (U) Negative Negative [facility] Urine leukocyte esterase det ection by automated test stripOrdered By: Rafiq Bahena on 11-21-2021 Leukocyte esterase Auto test strip Ql (U) 1+ Negative [facility] Urobilinogen Auto test strip (U) [Mass/Vol]Ordered By: Rafiq Bahena on 11-21-2021 Urobilinogen (U) [Mass/Vol] Normal mg/dL Normal [facility] pH Auto test strip (U)Ordere d By: Rafiq Bahena on 11-21-2021 pH (U) 5.5 [pH] 5.0-9.0 [facility] CBC AUTO DIFFon 10-24-2021 BASO # 0.1 103/ul Normal 0.0-0.1 [facility] Comment on above: Performed By: #### C BC #### [facility] [address] [place] [address] Dr. Grzegorz Wang Basophils/100 WBC (Bld) 0.6 % Normal 0.2-2.[address] [facility] Comment on above: Performed By: #### C BC #### [facility] [address] [place] [address] Dr. Grzegorz Wang EO # 0.4 103/ul Normal 0.0-0.7 [facility] Comment on above: Performed By: #### C BC #### [facility] [address] [place] [address] Dr. Grzegorz Wang Eosinophils/100 WBC (Bld) 5.0 % Normal 0.9-7.0 [facility] Comment on above: Performed By: #### C BC #### [facility] [address] [place] [address] Dr. Grzegorz Wang Erythrocyte distribution width (RBC) [Ratio] 18.6 % Critically high 11.0-15.0 [facility] Comment on above: Performed By: #### C BC #### [facility] [address] [place] [address] Dr. Grzegorz Wang Hematocrit (Bld) [Volume fraction] 35.7 % Critically low 36.0-48.0 [facility] Comment on above: Performed By: #### C BC #### [facility] [address] [place] [address] Dr. Grzegorz Wang Hemoglobin (Bld) [Mass/Vol] 11.2 g/dL Critically low 12.0-16.0 [facility] Comment on above: Performed By: #### C BC #### [facility] [address] [place] [address] Dr. Grzegorz Wang IG # 0.04 10e3/ul Critically high 0.00-0.03 [facility] Comment on above: Performed By: #### C BC #### [facility] [address] [place] [address] Dr. Grzegorz Wang IG % 0.5 % Normal 0.0-0.5 [facility] Comment on above: Performed By: #### C BC #### [facility] [address] [place] [address] Dr. Grzegorz Wang LYMPH # 1.9 103/ul Normal 1.2-3.8 [facility] Comment on above: Performed By: #### C BC #### [facility] [address] [place] [address] Dr. Grzegorz Wang Lymphocytes/100 WBC (Bld) 22.2 % Normal 20.5-60.0 [facility] Comment on above: Performed By: #### C BC #### [facility] [address] [place] [address] Dr. Grzegorz Wang MANUAL DIFF REQ NO Normal [facility] Comment on above: Performed By: #### C BC #### [facility] [address] [place] [address] Dr. Grzegorz Wang MCH (RBC) [Entitic mass] 26.4 pg Critically low 26.7-34.0 [facility] Comment on above: Performed By: #### C BC #### [facility] [address] [place] [address] Dr. Grzegorz Wang MCHC (RBC) [Mass/Vol] 31.4 g/dL Normal 29.9-35.2 [facility] Comment on above: Performed By: #### C BC #### [facility] [address] [place] [address] Dr. Grzegorz Wang MCV (RBC) [Entitic vol] 84.2 fL Normal 81.0-99.[address] [facility] Comment on above: Performed By: #### C BC #### [facility] [address] [place] [address] Dr. Grzegorz Wang MONO # 0.8 103/ul Normal 0.3-0.8 [facility] Comment on above: Performed By: #### C BC #### [facility] [address] [place] [address] Dr. Grzegorz Wang Monocytes/100 WBC (Bld) 10.0 % Normal 1.7-12.[address] [facility] Comment on above: Performed By: #### C BC #### [facility] [address] [place] [address] Dr. Grzegorz Wang NEUT # 5.2 103/ul Normal 1.4-6.5 [facility] Comment on above: Performed By: #### C BC #### [facility] [address] [place] [address] Dr. Grzegorz Wang Neutrophils/100 WBC (Bld) 61.7 % Normal 43.0-75.0 [facility] Comment on above: Performed By: #### C BC #### [facility] [address] [place] [address] Dr. Grzegorz Wang Platelet mean volume (Bld) [Entitic vol] 11.8 fL Normal 9.5-13.5 [facility] Comment on above: Performed By: #### C BC #### [facility] [address] [place] [address] Dr. Grzegorz Wang PLT 219 103/ul Normal 150-450 [facility] Comment on above: Performed By: #### C BC #### [facility] [address] [place] [address] Dr. Grzegorz Wang RBC 4.24 106/ul Normal 4.20-5.40 [facility] Comment on above: Performed By: #### C BC #### [facility] [address] [place] [address] Dr. Grzegorz Wang WBC 8.4 103/ul Normal 4.0-11.0 [facility] Comment on above: Performed By: #### C BC #### [facility] [address] [place] [address] Dr. Grzegorz Wang PRBC LEUKOREDUCEDon 10-23-19 ABO and Rh group Nom (Bld) Cross Match Result Compatible Unit Blood Type O Pos Unit Number [id number] Status Information Transfused Product ID Red Blood Cells Product Code [id number] Cross Match Result Compatible Blood Bank Notes CALLED SARATH GLYNN RN ON [facility] 10/17/21 @ 0850 Unit Blood Type O Neg Unit Number [id number] Status Information Transfused Product ID Red Blood Cells Product Code [id number] [facility] Comment on above: Performed By: #### C BC #### [facility] [address] [place] [address] Dr. Grzegorz Wang ABO and Rh group Nom (Bld) Cross Match Result Compatible Unit Blood Type O Neg Unit Number [id number] Status Information Transfused Product ID Red Blood Cells Product Code [id number] Cross Match Result Compatible Unit Blood Type O Neg Unit Number [id number] Status Information Transfused Product ID Red Blood Cells Product Code [id number] [facility] Comment on above: Performed By: #### C BC #### [facility] [address] [place] [address] Dr. Grzegorz Wang CBC AUTO DIFFon 10-18-2021 BASO # 0.0 103/ul Normal 0.0-0.1 [facility] Comment on above: Performed By: #### C BC #### [facility] [address] [address] [address] Grzegorz Wang Basophils/100 WBC (Bld) 0.7 % Normal 0.2-2.[address] [facility] Comment on above: Performed By: #### C BC #### [facility] [address] [address] [address] Grzegorz Wang EO # 0.2 103/ul Normal 0.0-0.7 [facility] Comment on above: Performed By: #### C BC #### [facility] [address] [place] [address] Dr. Grzegorz Wang Eosinophils/100 WBC (Bld) 2.9 % Normal 0.9-7.0 [facility] Comment on above: Performed By: #### C BC #### [facility] [address] [place] [address] Dr. Grzegorz Wang Erythrocyte distribution width (RBC) [Ratio] 17.8 % Critically high 11.0-15.0 [facility] Comment on above: Performed By: #### C BC #### [facility] [address] [place] [address] Dr. Grzegorz Wang Hematocrit (Bld) [Volume fraction] 30.1 % Critically low 36.0-48.0 [facility] Comment on above: Performed By: #### C BC #### [facility] [address] [place] [address] Dr. Grzegorz Wang Hemoglobin (Bld) [Mass/Vol] 9.6 g/dL Critically low 12.0-16.0 [facility] Comment on above: Performed By: #### C BC #### [facility] [address] [place] [address] Dr. Grzegorz Wang IG # 0.08 10e3/ul Critically high 0.00-0.03 [facility] Comment on above: Performed By: #### C BC #### [facility] [address] [place] [address] Dr. Grzegorz Wang IG % 1.3 % Critically high 0.0-0.5 [facility] Comment on above: Performed By: #### C BC #### [facility] [address] [place] [address] Dr. Grzegorz Wang LYMPH # 1.8 103/ul Normal 1.2-3.8 [facility] Comment on above: Performed By: #### C BC #### [facility] [address] [place] [address] Dr. Grzegorz Wang Lymphocytes/100 WBC (Bld) 29.4 % Normal 20.5-60.0 [facility] Comment on above: Performed By: #### C BC #### [facility] [address] [place] [address] Dr. Grzegorz Wang MANUAL DIFF REQ NO Normal [facility] Comment on above: Performed By: #### C BC #### [facility] [address] [place] [address] Dr. Grzegorz Wang MCH (RBC) [Entitic mass] 25.9 pg Critically low 26.7-34.0 [facility] Comment on above: Performed By: #### C BC #### [facility] [address] [place] [address] Dr. Grzegorz Wang MCHC (RBC) [Mass/Vol] 31.9 g/dL Normal 29.9-35.2 [facility] Comment on above: Performed By: #### C BC #### [facility] [address] [place] [address] Dr. Grzegorz Wang MCV (RBC) [Entitic vol] 81.4 fL Normal 81.0-99.[address] [facility] Comment on above: Performed By: #### C BC #### [facility] [address] [place] [address] Dr. Grzegorz Wang MONO # 0.7 103/ul Normal 0.3-0.8 [facility] Comment on above: Performed By: #### C BC #### [facility] [address] [place] [address] Dr. Grzegorz Wang Monocytes/100 WBC (Bld) 11.9 % Normal 1.7-12.[address] [facility] Comment on above: Performed By: #### C BC #### [facility] [address] [place] [address] Dr. Grzegorz Wang NEUT # 3.3 103/ul Normal 1.4-6.5 [facility] Comment on above: Performed By: #### C BC #### [facility] [address] [place] [address] Dr. Grzegorz Wang Neutrophils/100 WBC (Bld) 53.8 % Normal 43.0-75.0 [facility] Comment on above: Performed By: #### C BC #### [facility] [address] [place] [address] Dr. Grzegorz Wang Platelet mean volume (Bld) [Entitic vol] 10.5 fL Normal 9.5-13.5 [facility] Comment on above: Performed By: #### C BC #### [facility] [address] [place] [address] Dr. Grzegorz Wang PLT 206 103/ul Normal 150-450 [facility] Comment on above: Performed By: #### C BC #### [facility] [address] [place] [address] Dr. Grzegorz Wang RBC 3.70 106/ul Critically low 4.20-5.40 [facility] Comment on above: Performed By: #### C BC #### [facility] [address] [place] [address] Dr. Grzegorz Wang WBC 6.1 103/ul Normal 4.0-11.0 [facility] Comment on above: Performed By: #### C BC #### [facility] [address] [place] [address] Dr. Grzegorz Wang PROF CHEM 8 (BAS METB)on Anion gap [Moles/Vol] 9.6 mmol/L Normal [facility] Comment on above: Performed By: #### C BC #### [facility] [address] [place] [address] Dr. Grzegorz Wang Calcium [Mass/Vol] 8.5 mg/dL Normal 8.5-10.1 [facility] Comment on above: Performed By: #### C BC #### [facility] [address] [address] [address] Grzegorz Wang Chloride [Moles/Vol] 113 mmol/L Critically high 98-107 [facility] Comment on above: Performed By: #### C BC #### [facility] [address] [address] [address] Grzegorz Wang CO2 [Moles/Vol] 26.6 mmol/L Normal 21.0-32.0 [facility] Comment on above: Performed By: #### C BC #### [facility] [address] [place] [address] Dr. Grzegorz Wang Creatinine [Mass/Vol] 0.94 mg/dL Normal 0.55-1.02 [facility] Comment on above: Performed By: #### C BC #### [facility] [address] [address] [address] Grzegorz Wang EGFR-AF GERMAN >60 Normal >=60 [facility] Comment on above: Performed By: #### C BC #### [facility] [address] [address] [address] Grzegorz Wang EGFR-NON AF GERMAN 58 mL/min/1.73m2 Critically low >=60 [facility] Comment on above: Performed By: #### C BC #### [facility] [address] [address] [address] Grzegorz Wang Glucose [Mass/Vol] 97 mg/dL Normal 74-106 [facility] Comment on above: Performed By: #### C BC #### [facility] [address] [address] [address] Grzegorz Wang Potassium [Moles/Vol] 3.2 mmol/L Critically low 3.5-5.1 [facility] Comment on above: Performed By: #### C BC #### [facility] [address] [address] [address] Grzegorz Wang Sodium [Moles/Vol] 146 mmol/L Critically high 136-[address] [facility] Comment on above: Performed By: #### C BC #### [facility] [address] [place] [address] Dr. Grzegorz Wang Urea nitrogen [Mass/Vol] 38.0 mg/dL Critically high 7.0-18.0 [facility] Comment on above: Performed By: #### C BC #### [facility] [address] [place] [address] Dr. Grzegorz Wang Urea nitrogen/Creatinine [Mass ratio] 40.4 mg/mg Normal [facility] Comment on above: Performed By: #### C BC #### [facility] [address] [place] [address] Dr. Grzegorz Wang CBC AUTO DIFFon 10-17-2021 BASO # 0.1 103/ul Normal 0.0-0.1 [facility] Comment on above: Performed By: #### C BC #### [facility] [address] [place] [address] Dr. Grzegorz Wang Basophils/100 WBC (Bld) 0.9 % Normal 0.2-2.[address] [facility] Comment on above: Performed By: #### C BC #### [facility] [address] [place] [address] Dr. Grzegorz Wang EO # 0.2 103/ul Normal 0.0-0.7 [facility] Comment on above: Performed By: #### C BC #### [facility] [address] [place] [address] Dr. Grzegorz Wang Eosinophils/100 WBC (Bld) 3.1 % Normal 0.9-7.0 [facility] Comment on above: Performed By: #### C BC #### [facility] [address] [place] [address] Dr. Grzegorz Wang Erythrocyte distribution width (RBC) [Ratio] 17.6 % Critically high 11.0-15.0 [facility] Comment on above: Performed By: #### C BC #### [facility] [address] [place] [address] Dr. Grzegorz Wang Hematocrit (Bld) [Volume fraction] 35.7 % Critically low 36.0-48.0 [facility] Comment on above: Performed By: #### C BC #### [facility] [address] [place] [address] Dr. Grzegorz Wang Hemoglobin (Bld) [Mass/Vol] 11.5 g/dL Critically low 12.0-16.0 [facility] Comment on above: Result Comment: rcvd . blood Performed By: #### C BC #### [facility] [address] [place] [address] Dr. Grzegorz Wang IG # 0.18 10e3/ul Critically high 0.00-0.03 [facility] Comment on above: Performed By: #### C BC #### [facility] [address] [place] [address] Dr. Grzegorz Wang IG % 2.6 % Critically high 0.0-0.5 [facility] Comment on above: Performed By: #### C BC #### [facility] [address] [place] [address] Dr. Grzegorz Wang LYMPH # 1.5 103/ul Normal 1.2-3.8 [facility] Comment on above: Performed By: #### C BC #### [facility] [address] [place] [address] Dr. Grzeogrz Wang Lymphocytes/100 WBC (Bld) 21.4 % Normal 20.5-60.0 [facility] Comment on above: Performed By: #### C BC #### [facility] [address] [place] [address] Dr. Grzegorz Wang MANUAL DIFF REQ NO Normal [facility] Comment on above: Performed By: #### C BC #### [facility] [address] [place] [address] Dr. Grzegorz Wang MCH (RBC) [Entitic mass] 26.0 pg Critically low 26.7-34.0 [facility] Comment on above: Performed By: #### C BC #### [facility] [address] [place] [address] Dr. Grzegorz Wang MCHC (RBC) [Mass/Vol] 32.2 g/dL Normal 29.9-35.2 [facility] Comment on above: Performed By: #### C BC #### [facility] [address] [place] [address] Dr. Grzegorz Wang MCV (RBC) [Entitic vol] 80.6 fL Critically low 81.0-99. 0 [facility] Comment on above: Performed By: #### C BC #### [facility] [address] [place] [address] Dr. Grzegorz Wang MONO # 0.7 103/ul Normal 0.3-0.8 [facility] Comment on above: Performed By: #### C BC #### [facility] [address] [place] [address] Dr. Grzegorz Wang Monocytes/100 WBC (Bld) 10.8 % Normal 1.7-12.[address] [facility] Comment on above: Performed By: #### C BC #### [facility] [address] [place] [address] Dr. Grzegorz Wang NEUT # 4.2 103/ul Normal 1.4-6.5 [facility] Comment on above: Performed By: #### C BC #### [facility] [address] [place] [address] Dr. Grzegorz Wang Neutrophils/100 WBC (Bld) 61.2 % Normal 43.0-75.0 [facility] Comment on above: Performed By: #### C BC #### [facility] [address] [place] [address] Dr. Grzegorz Wang Platelet mean volume (Bld) [Entitic vol] 9.9 fL Normal 9.5-13.5 [facility] Comment on above: Performed By: #### C BC #### [facility] [address] [place] [address] Dr. Grzegorz Wang PLT 228 103/ul Normal 150-450 [facility] Comment on above: Performed By: #### C BC #### [facility] [address] [place] [address] Dr. Grzegorz Wang RBC 4.43 106/ul Normal 4.20-5.40 [facility] Comment on above: Performed By: #### C BC #### [facility] [address] [address] [address] Grzegorz Wang WBC 6.9 103/ul Normal 4.0-11.0 [facility] Comment on above: Performed By: #### C BC #### [facility] [address] [address] [address] Grzegorz Wang BASO # 0.0 103/ul Normal 0.0-0.1 [facility] Comment on above: Performed By: #### C BC #### [facility] [address] [address] [address] Grzegorz Wang Basophils/100 WBC (Bld) 0.8 % Normal 0.2-2.[address] [facility] Comment on above: Performed By: #### C BC #### [facility] [address] [place] [address] Dr. Grzegorz Wang EO # 0.1 103/ul Normal 0.0-0.7 [facility] Comment on above: Performed By: #### C BC #### [facility] [address] [place] [address] Dr. Grzegorz Wang Eosinophils/100 WBC (Bld) 2.4 % Normal 0.9-7.0 [facility] Comment on above: Performed By: #### C BC #### [facility] [address] [place] [address] Dr. Grzegorz Wang Erythrocyte distribution width (RBC) [Ratio] 16.8 % Critically high 11.0-15.0 [facility] Comment on above: Performed By: #### C BC #### [facility] [address] [place] [address] Dr. Grzegorz Wang Hematocrit (Bld) [Volume fraction] 23.2 % Critically low 36.0-48.0 [facility] Comment on above: Performed By: #### C BC #### [facility] [address] [place] [address] Dr. Grzegorz Wang Hemoglobin (Bld) [Mass/Vol] 7.4 g/dL Critically low 12.0-16.0 [facility] Comment on above: Performed By: #### C BC #### [facility] [address] [address] [address] Grzegorz Wang IG # 0.05 10e3/ul Critically high 0.00-0.03 [facility] Comment on above: Performed By: #### C BC #### [facility] [address] [address] [address] Grzegorz Wang IG % 1.0 % Critically high 0.0-0.5 [facility] Comment on above: Performed By: #### C BC #### [facility] [address] [address] [address] Grzegorz Wang LYMPH # 1.4 103/ul Normal 1.2-3.8 [facility] Comment on above: Performed By: #### C BC #### [facility] [address] [place] [address] Dr. Grzegorz Wang Lymphocytes/100 WBC (Bld) 27.8 % Normal 20.5-60.0 [facility] Comment on above: Performed By: #### C BC #### [facility] [address] [address] [address] Grzegorz Wang MANUAL DIFF REQ NO Normal [facility] Comment on above: Performed By: #### C BC #### [facility] [address] [place] [address] Dr. Grzegorz Wang MCH (RBC) [Entitic mass] 25.6 pg Critically low 26.7-34.0 [facility] Comment on above: Performed By: #### C BC #### [facility] [address] [place] [address] Dr. Grzegorz Wang MCHC (RBC) [Mass/Vol] 31.9 g/dL Normal 29.9-35.2 [facility] Comment on above: Performed By: #### C BC #### [facility] [address] [place] [address] Dr. Grzegorz Wang MCV (RBC) [Entitic vol] 80.3 fL Critically low 81.0-99. 0 [facility] Comment on above: Performed By: #### C BC #### [facility] [address] [address] [address] Grzegorz Wang MONO # 0.6 103/ul Normal 0.3-0.8 [facility] Comment on above: Performed By: #### C BC #### [facility] [address] [address] [address] Grzegorz Wang Monocytes/100 WBC (Bld) 11.6 % Normal 1.7-12.[address] [facility] Comment on above: Performed By: #### C BC #### [facility] [address] [place] [address] Dr. Grzegorz Wang NEUT # 2.8 103/ul Normal 1.4-6.5 [facility] Comment on above: Performed By: #### C BC #### [facility] [address] [place] [address] Dr. Grzegorz Wang Neutrophils/100 WBC (Bld) 56.4 % Normal 43.0-75.0 [facility] Comment on above: Performed By: #### C BC #### [facility] [address] [place] [address] Dr. Grzegorz Wang Platelet mean volume (Bld) [Entitic vol] 10.0 fL Normal 9.5-13.5 [facility] Comment on above: Performed By: #### C BC #### [facility] [address] [place] [address] Dr. Grzegorz Wang PLT 193 103/ul Normal 150-450 [facility] Comment on above: Performed By: #### C BC #### [facility] [address] [place] [address] Dr. Grzegorz Wang RBC 2.89 106/ul Critically low 4.20-5.40 [facility] Comment on above: Performed By: #### C BC #### [facility] [address] [place] [address] Dr. Grzegorz Wang WBC 4.9 103/ul Normal 4.0-11.0 [facility] Comment on above: Performed By: #### C BC #### [facility] [address] [address] [address] Grzegorz Wang PROF CHEM 8 (BAS METB)on Anion gap [Moles/Vol] 11.4 mmol/L Normal [facility] Comment on above: Performed By: #### A MY, LIPA #### [facility] [address] [place] [address] Dr. Grzegorz Wang Calcium [Mass/Vol] 8.3 mg/dL Critically low 8.5-10.1 [facility] Comment on above: Performed By: #### A MY, LIPA #### [facility] [address] [place] [address] Dr. Grzegorz Wang Chloride [Moles/Vol] 116 mmol/L Critically high 98-107 [facility] Comment on above: Performed By: #### A MY, LIPA #### [facility] [address] [place] [address] Dr. Grzgeorz Wang CO2 [Moles/Vol] 21.1 mmol/L Normal 21.0-32.0 [facility] Comment on above: Performed By: #### A MY, LIPA #### [facility] [address] [place] [address] Dr. Grzegorz Wang Creatinine [Mass/Vol] 1.07 mg/dL Critically high 0.55-1.02 [facility] Comment on above: Performed By: #### A MY, LIPA #### [facility] [address] [place] [address] Dr. Grzegorz Wang EGFR-AF GERMAN >60 Normal >=60 [facility] Comment on above: Performed By: #### A MY, LIPA #### [facility] [address] [place] [address] Dr. Grzegorz Wang EGFR-NON AF GERMAN 50 mL/min/1.73m2 Critically low >=60 [facility] Comment on above: Performed By: #### A MY, LIPA #### [facility] [address] [place] [address] Dr. Grzegorz Wang Glucose [Mass/Vol] 90 mg/dL Normal 74-106 [facility] Comment on above: Performed By: #### A MY, LIPA #### [facility] [address] [place] [address] Dr. Grzegorz Wang Potassium [Moles/Vol] 3.5 mmol/L Normal 3.5-5.1 [facility] Comment on above: Performed By: #### A MY, LIPA #### [facility] [address] [place] [address] Dr. Grzegorz Wang Sodium [Moles/Vol] 145 mmol/L Normal 136-145 [facility] Comment on above: Performed By: #### A BRAYDEN LIPA #### [facility] [address] [place] [address] Dr. Grzegorz Wang Urea nitrogen [Mass/Vol] 59.0 mg/dL Critically high 7.0-18.0 [facility] Comment on above: Performed By: #### A BRAYDEN LIPA #### [facility] [address] [place] [address] Dr. Grzegorz Wang Urea nitrogen/Creatinine [Mass ratio] 55.1 mg/mg Normal [facility] Comment on above: Performed By: #### A BRAYDEN LIPA #### [facility] [address] [place] [address] Dr. Grzegorz Wang AMYLASEon 10-16-2021 Amylase [Catalytic activity/Vol] 41 U/L Normal 25-115 [facility] Comment on above: Performed By: #### A BRAYDEN LIPA #### [facility] [address] [place] [address] Dr. Grzegorz Wang CBC AUTO DIFFon 10-16-2021 BASO # 0.1 103/ul Normal 0.0-0.1 [facility] Comment on above: Performed By: #### A BRAYDEN LIPA #### [facility] [address] [place] [address] Dr. Grzegorz Wang Basophils/100 WBC (Bld) 0.7 % Normal 0.2-2.[address] [facility] Comment on above: Performed By: #### A BRAYDEN LIPA #### [facility] [address] [place] [address] Dr. Grzegorz Wang EO # 0.2 103/ul Normal 0.0-0.7 [facility] Comment on above: Performed By: #### A BRAYDEN LIPA #### [facility] [address] [place] [address] Dr. Grzegorz Wang Eosinophils/100 WBC (Bld) 2.4 % Normal 0.9-7.0 [facility] Comment on above: Performed By: #### A BRAYDEN LIPA #### [facility] [address] [place] [address] Dr. Grzegorz Wang Erythrocyte distribution width (RBC) [Ratio] 17.1 % Critically high 11.0-15.0 [facility] Comment on above: Performed By: #### A BRAYDEN LIPA #### [facility] [address] [place] [address] Dr. Grzegorz Wang Hematocrit (Bld) [Volume fraction] 26.0 % Critically low 36.0-48.0 [facility] Comment on above: Performed By: #### A BRAYDEN LIPA #### [facility] [address] [place] [address] Dr. Grzegorz Wang Hemoglobin (Bld) [Mass/Vol] 8.4 g/dL Critically low 12.0-16.0 [facility] Comment on above: Performed By: #### A BRAYDEN LIPA #### [facility] [address] [place] [address] Dr. Grzegorz Wang IG # 0.03 10e3/ul Normal 0.00-0.03 [facility] Comment on above: Performed By: #### A BRAYDEN LIPA #### [facility] [address] [place] [address] Dr. Grzegorz Wang IG % 0.4 % Normal 0.0-0.5 [facility] Comment on above: Performed By: #### A BRAYDEN LIPA #### [facility] [address] [place] [address] Dr. Grzegorz Wang LYMPH # 1.9 103/ul Normal 1.2-3.8 [facility] Comment on above: Performed By: #### A BRAYDEN LIPA #### [facility] [address] [address] [address] Grzegorz Wang Lymphocytes/100 WBC (Bld) 27.3 % Normal 20.5-60.0 [facility] Comment on above: Performed By: #### A MY, LIPA #### [facility] [address] [place] [address] Dr. Grzegorz Wang MANUAL DIFF REQ NO Normal [facility] Comment on above: Performed By: #### A MY, LIPA #### [facility] [address] [place] [address] Dr. Grzegorz Wang MCH (RBC) [Entitic mass] 26.0 pg Critically low 26.7-34.0 [facility] Comment on above: Performed By: #### A BRAYDEN, LIPA #### [facility] [address] [place] [address] Dr. Grzegorz Wang MCHC (RBC) [Mass/Vol] 32.3 g/dL Normal 29.9-35.2 [facility] Comment on above: Performed By: #### A BRAYDEN, LIPA #### [facility] [address] [place] [address] Dr. Grzegorz Wang MCV (RBC) [Entitic vol] 80.5 fL Critically low 81.0-99. 0 [facility] Comment on above: Performed By: #### A BRAYDEN, LIPA #### [facility] [address] [place] [address] Dr. Grzegorz Wang MONO # 0.7 103/ul Normal 0.3-0.8 [facility] Comment on above: Performed By: #### A BRAYDEN, LIPA #### [facility] [address] [place] [address] Dr. Grzegorz Wang Monocytes/100 WBC (Bld) 10.5 % Normal 1.7-12.[address] [facility] Comment on above: Performed By: #### A BRAYDEN, LIPA #### [facility] [address] [place] [address] Dr. Grzegorz Wang NEUT # 4.1 103/ul Normal 1.4-6.5 [facility] Comment on above: Performed By: #### A MY, LIPA #### [facility] [address] [address] [address] Grzegorz Wang Neutrophils/100 WBC (Bld) 58.7 % Normal 43.0-75.0 [facility] Comment on above: Performed By: #### A MY, LIPA #### [facility] [address] [place] [address] Dr. Grzegorz Wang Platelet mean volume (Bld) [Entitic vol] 10.4 fL Normal 9.5-13.5 [facility] Comment on above: Performed By: #### A BRAYDEN LIPA #### [facility] [address] [place] [address] Dr. Grzegorz Wang PLT 217 103/ul Normal 150-450 [facility] Comment on above: Performed By: #### A BRAYDEN LIPA #### [facility] [address] [place] [address] Dr. Grzegorz Wang RBC 3.23 106/ul Critically low 4.20-5.40 [facility] Comment on above: Performed By: #### A BRAYDEN LIPA #### [facility] [address] [place] [address] Dr. Grzegorz Wang WBC 7.1 103/ul Normal 4.0-11.0 [facility] Comment on above: Performed By: #### A BRAYDEN LIPA #### [facility] [address] [place] [address] Dr. Grzegorz Wang BASO # 0.0 103/ul Normal 0.0-0.1 [facility] Comment on above: Performed By: #### C BC #### [facility] [address] [place] [address] Dr. Grzegorz Wang Basophils/100 WBC (Bld) 0.5 % Normal 0.2-2.[address] [facility] Comment on above: Performed By: #### C BC #### [facility] [address] [place] [address] Dr. Grzegorz Wang EO # 0.1 103/ul Normal 0.0-0.7 [facility] Comment on above: Performed By: #### C BC #### [facility] [address] [address] [address] Grzegorz Wang Eosinophils/100 WBC (Bld) 0.8 % Critically low 0.9-7.0 [facility] Comment on above: Performed By: #### C BC #### [facility] [address] [address] [address] Grzegorz Wang Erythrocyte distribution width (RBC) [Ratio] 16.8 % Critically high 11.0-15.0 [facility] Comment on above: Performed By: #### C BC #### [facility] [address] [place] [address] Dr. Grzegorz Wang Hematocrit (Bld) [Volume fraction] 19.5 % Critically low 36.0-48.0 [facility] Comment on above: Performed By: #### C BC #### [facility] [address] [place] [address] Dr. Grzegorz Wang Hemoglobin (Bld) [Mass/Vol] 6.0 g/dL Critically low 12.0-16.0 [facility] Comment on above: Result Comment: repe ated Performed By: #### C BC #### [facility] [address] [place] [address] Dr. Grzegorz Wang IG # 0.05 10e3/ul Critically high 0.00-0.03 [facility] Comment on above: Performed By: #### C BC #### [facility] [address] [place] [address] Dr. Grzegorz Wang IG % 0.6 % Critically high 0.0-0.5 [facility] Comment on above: Performed By: #### C BC #### [facility] [address] [place] [address] Dr. Grzegorz Wang LYMPH # 1.8 103/ul Normal 1.2-3.8 [facility] Comment on above: Performed By: #### C BC #### [facility] [address] [place] [address] Dr. Grzegorz Wagn Lymphocytes/100 WBC (Bld) 21.6 % Normal 20.5-60.0 [facility] Comment on above: Performed By: #### C BC #### [facility] [address] [place] [address] Dr. Grzegorz Wang MANUAL DIFF REQ NO Normal [facility] Comment on above: Performed By: #### C BC #### [facility] [address] [place] [address] Dr. Grzegorz Wang MCH (RBC) [Entitic mass] 23.4 pg Critically low 26.7-34.0 [facility] Comment on above: Performed By: #### C BC #### [facility] [address] [place] [address] Dr. Grzegorz Wang MCHC (RBC) [Mass/Vol] 30.6 g/dL Normal 29.9-35.2 [facility] Comment on above: Performed By: #### C BC #### [facility] [address] [place] [address] Dr. Grzegorz Wang MCV (RBC) [Entitic vol] 76.6 fL Critically low 81.0-99. 0 [facility] Comment on above: Performed By: #### C BC #### [facility] [address] [place] [address] Dr. Grzegorz Wang MONO # 0.6 103/ul Normal 0.3-0.8 [facility] Comment on above: Performed By: #### C BC #### [facility] [address] [place] [address] Dr. Grzegorz Wang Monocytes/100 WBC (Bld) 7.3 % Normal 1.7-12.[address] [facility] Comment on above: Performed By: #### C BC #### [facility] [address] [place] [address] Dr. Grzegorz Wang NEUT # 5.9 103/ul Normal 1.4-6.5 [facility] Comment on above: Performed By: #### C BC #### [facility] [address] [place] [address] Dr. Grzegorz Wang Neutrophils/100 WBC (Bld) 69.2 % Normal 43.0-75.0 [facility] Comment on above: Performed By: #### C BC #### [facility] [address], [place] [address] Dr. Grzegorz Wang Platelet mean volume (Bld) [Entitic vol] 10.5 fL Normal 9.5-13.5 [facility] Comment on above: Performed By: #### C BC #### [facility] [address] [address] [address] Grzegorz Wang PLT 288 103/ul Normal 150-450 [facility] Comment on above: Performed By: #### C BC #### [facility] [address] [place], [place] [address] Dr. Grzegorz Wang RBC 2.52 106/ul Critically low 4.20-5.40 [facility] Comment on above: Performed By: #### C BC #### [facility] [address], [place] [address] Dr. Grzegorz Wang WBC 8.5 103/ul Normal 4.0-11.0 [facility] Comment on above: Performed By: #### C BC #### [facility] [address], [place] [address] [address] ABD/PELVIS WO CONon [...] LYNN OLSON Date: 2021-10-16 13:53 Normal [facility] Covid-19 PCR (CVDTB)on SARS-CoV-2 (COVID-19) RNA SIOBHAN+probe Ql (Unsp spec) Not detected Normal NOT DETECTED [facility] Comment on above: Result Comment: When diagnostic [...] for this test is supported by the [place] of Health and Human Service's declaration that [...] used). Performed By: #### E RUR #### [facility] [address] [place] [address] Dr. Grzegorz Wang ER URINE PROFILEon 2 Bilirubin Ql (U) Negative Normal NEGATIVE [facility] Comment on above: Performed By: #### A BRAYDEN LIPA #### [facility] [address] [place] [address] Dr. Grzegorz Wang Clarity (U) CLEAR Normal CLEAR [facility] Comment on above: Performed By: #### A BRAYDEN LIPA #### [facility] [address] [place] [address] Dr. Grzegorz Wang Color (U) LT. YELLOW Normal YELLOW [facility] Comment on above: Performed By: #### A BRAYDEN, LIPA #### [facility] [address] [place] [address] Dr. Grzegorz Wang ERUAHD A micrscopic examination will be performed if indicated. Normal [facility] Comment on above: Performed By: #### A BRAYDEN LIPA #### [facility] [address] [address] [address] Grzegorz Wang Glucose Ql (U) Negative Normal NEGATIVE [facility] Comment on above: Performed By: #### A MY, LIPA #### [facility] [address] [address] [address] Grzegorz Wang Hemoglobin Ql (U) SMALL Abnormal NEGATIVE [facility] Comment on above: Performed By: #### A MY, LIPA #### [facility] [address] [place] [address] Dr. Grzegorz Wang Ketones Ql (U) Negative Normal NEGATIVE [facility] Comment on above: Performed By: #### A MY, LIPA #### [facility] [address] [place] [address] Dr. Grzegorz Wang LEUKOCYTES TRACE Abnormal NEGATIVE [facility] Comment on above: Performed By: #### A MY, LIPA #### [facility] [address] [place] [address] Dr. Grzegorz Wang Nitrite Ql (U) Negative Normal NEGATIVE [facility] Comment on above: Performed By: #### A MY, LIPA #### [facility] [address] [place] [address] Dr. Grzegorz Wang pH (U) 5.5 [pH] Normal 5-9 [facility] Comment on above: Performed By: #### A MY, LIPA #### [facility] [address] [place] [address] Dr. Grzegorz Wang SPEC GRAVITY 1.005 Normal 1.005-<=1.0 25 [facility] Comment on above: Performed By: #### A MY, LIPA #### [facility] [address] [place] [address] Dr. Grzegorz Wang UA PROTEIN Negative Normal NEGATIVE/ TRACE [facility] Comment on above: Performed By: #### A MY, LIPA #### [facility] [address] [place] [address] Dr. Grzegorz Wang UR MICRO IND INDICATED Normal [facility] Comment on above: Performed By: #### A MY, LIPA #### [facility] [address] [place] [address] Dr. Grzegorz Wang Urobilinogen Qn (U) 0.2 {Lidya'U}/dL Normal 0.2 - 1. 0 [facility] Comment on above: Performed By: #### A MY, LIPA #### [facility] [address] [place] [address] Dr. Grzegorz Wang LIPASEon 10-16-2021 Lipase [Catalytic activity/Vol] 77.0 U/L Normal 73.0-393.0 [facility] Comment on above: Performed By: #### A BRAYDEN LIPA #### [facility] [address] [place] [address] Dr. Grzegorz Wang OCC BLD IMMUNO SCREENon OCCULT BLOOD Positive Abnormal NEGATIVE [facility] Comment on above: Performed By: #### A BRAYDEN LIPA #### [facility] [address] [place] [address] Dr. Grzegorz Wang PROF 14(COMP METB)on 022 Albumin [Mass/Vol] 3.4 g/dL Normal 3.4-5.0 [facility] Comment on above: Performed By: #### C BC #### [facility] [address] [place] [address] Dr. Grzegorz Wang Albumin/Globulin [Mass ratio] 1.2 {ratio} Normal [facility] Comment on above: Performed By: #### C BC #### [facility] [address] [place] [address] Dr. Grzegorz Wang ALP [Catalytic activity/Vol] 77 U/L Normal 46-116 [facility] Comment on above: Performed By: #### C BC #### [facility] [address] [place] [address] Dr. Grzegorz Wang ALT [Catalytic activity/Vol] 18 U/L Normal 14-59 [facility] Comment on above: Performed By: #### C BC #### [facility] [address] [place] [address] Dr. Grzegorz Wang Anion gap [Moles/Vol] 15.3 mmol/L Normal [facility] Comment on above: Performed By: #### C BC #### [facility] [address] [address] [address] Grzegorz Wang AST [Catalytic activity/Vol] 17 U/L Normal 15-37 [facility] Comment on above: Performed By: #### C BC #### [facility] [address] [address] [address] Grzegorz Wang Bilirubin [Mass/Vol] 0.4 mg/dL Normal 0.2-1.0 [facility] Comment on above: Performed By: #### C BC #### [facility] [address] [address] [address] Grzegorz Wang Calcium [Mass/Vol] 8.5 mg/dL Normal 8.5-10.1 [facility] Comment on above: Performed By: #### C BC #### [facility] [address] [address] [address] Grzegorz Wang Chloride [Moles/Vol] 104 mmol/L Normal 98-107 [facility] Comment on above: Performed By: #### C BC #### [facility] [address] [address] [address] Grzegorz Wang CO2 [Moles/Vol] 21.2 mmol/L Normal 21.0-32.0 [facility] Comment on above: Performed By: #### C BC #### [facility] [address] [address] [address] Grzegorz Wang Creatinine [Mass/Vol] 1.68 mg/dL Critically high 0.55-1.02 [facility] Comment on above: Performed By: #### C BC #### [facility] [address] [address] [address] Grzegorz Wang EGFR-AF GERMAN 36 mL/min/1.73m2 Critically low >=60 [facility] Comment on above: Performed By: #### C BC #### [facility] [address] [address] [address] Grzegorz Wang EGFR-NON AF GERMAN 30 mL/min/1.73m2 Critically low >=60 [facility] Comment on above: Performed By: #### C BC #### [facility] [address] [address] [address] Grzegorz Wang Globulin (S) [Mass/Vol] 2.8 g/dL Normal [facility] Comment on above: Performed By: #### C BC #### [facility] [address] [address] [address] Grzegorz Wang Glucose [Mass/Vol] 101 mg/dL Normal 74-106 [facility] Comment on above: Performed By: #### C BC #### [facility] [address] [address] [address] Grzegorz Wang Potassium [Moles/Vol] 3.5 mmol/L Normal 3.5-5.1 [facility] Comment on above: Performed By: #### C BC #### [facility] [address] [address] [address] Grzegorz Wang Protein [Mass/Vol] 6.2 g/dL Critically low 6.4-8.2 Th [facility] Comment on above: Performed By: #### C BC #### [facility] [address] [address] [address] Grzegorz Wang Sodium [Moles/Vol] 137 mmol/L Normal 136-145 [facility] Comment on above: Performed By: #### C BC #### [facility] [address] [address] [address] Grzegorz Wang Urea nitrogen [Mass/Vol] 83.0 mg/dL Critically high 7.0-18.0 [facility] Comment on above: Result Comment: repe ated Performed By: #### C BC #### [facility] [address] [address] [address] Grzegorz Wang Urea nitrogen/Creatinine [Mass ratio] 49.4 mg/mg Normal [facility] Comment on above: Performed By: #### C BC #### [facility] [address] [address] [address] Grzegorz Wang PROTIMEon 10-16-2021 INR Coag (PPP) [Relative time] 0.99 {INR} Normal [facility] Comment on above: Performed By: #### P T, PTT #### [facility] [address] [place] [address] Dr. Grzegorz Wang INR GUIDELINES SEE BELOW Normal [facility] Comment on above: Result Comment: DENTON RED INR: 2.0 - 3.0 CONDITIONS NOT LISTED BELOW 2.5 - 3.5 FOR PROSTHETIC HEART VALVE REPLACEMENT 2.5 - 3.5 RECURRENT THROMBOSIS Performed By: #### P T, PTT #### [facility] [address] [place] [address] Dr. Grzegorz Wang PT Coag (PPP) [Time] 10.7 s Normal 9.0-11.6 [facility] Comment on above: Performed By: #### P T, PTT #### [facility] [address] [place] [address] Dr. Grzegorz Wang PTTon 10-16-2021 aPTT Coag (Bld) [Time] 23.5 s Normal 22.3-36.2 [facility] Comment on above: Performed By: #### P T, PTT #### [facility] [address] [place] [address] Dr. Grzegorz Wang TYPE AND SCREENon 10-16-2021 TYPE AND SCREEN Negative Normal [facility] Comment on above: Performed By: #### C BC #### [facility] [address] [place] [address] Dr. Grzegorz Wang URINE MICROSCOPIC ONLYon BACTERIA NONE SEEN Normal NONE SEEN [facility] Comment on above: Performed By: #### A MY, LIPA #### [facility] [address] [place] [address] Dr. Grzegorz Wang Bacteria identified Cx Nom (U) NOT INDICATED Normal [facility] Comment on above: Performed By: #### A MY, LIPA #### [facility] [address] [place] [address] Dr. Grzegorz Wang CAST NONE SEEN Normal NONE SEEN [facility] Comment on above: Performed By: #### A MY, LIPA #### [facility] [address] [place], [place] [id number] Dr. Grzegorz Wang Crystals LM Nom (Urine sed) NONE SEEN Normal NONE SEEN [facility] Comment on above: Performed By: #### A MY, LIPA #### [facility] [address] [place] [address] Dr. Grzegorz Wang Epithelial cells LM Ql (Urine sed) RARE Normal NONE SEEN /RARE [facility] Comment on above: Performed By: #### A MY, LIPA #### [facility] [address] [place] [address] Dr. Grzegorz Wang MUCOUS NONE SEEN Normal NONE SEEN [facility] Comment on above: Performed By: #### A MY, LIPA #### [facility] [address] [place] [address] Dr. Grzegorz Wang RBC NONE SEEN Abnormal 0-2 [facility] Comment on above: Performed By: #### A MY, LIPA #### [facility] [address] [place] [address] Dr. Grzegorz Wang WBC NONE SEEN Normal NONE SEEN [facility] Comment on above: Performed By: #### A BRAYDEN LIPA #### [facility] [address] [place] [address] Dr. Grzegorz Wang BNPon 09-02-2021 Natriuretic peptide B (Bld) [Mass/Vol] 140.0 pg/mL Normal <=900.0 [facility] Comment on above: Performed By: #### C BC #### [facility] [address] [place] [address] Dr. Grzegorz Wang CARDIAC BAMBI ADMITon 022 CK [Catalytic activity/Vol] 121 U/L Normal 26-192 [facility] Comment on above: Performed By: #### C BC #### [facility] [address] [place] [address] Dr. Grzegorz Wang CK.MB [Mass/Vol] 2.44 ng/mL Normal <=3.60 [facility] Comment on above: Performed By: #### C BC #### [facility] [address] [place] [address] Dr. Grzegorz Wang HSTROP 9.8 pg/mL Normal 4.0-51.3 [facility] Comment on above: Result Comment: CUT- OFF POINTS HAVE BEEN ESTABLISHED BASED ON THE FOURTH UNIVERSAL DEFINITIONS OF MYOCARDIAL INFARCTION. THE UPPER REFERENCE LIMIT (URL) OF TROPONIN, DEFINED THE 99TH PERCENTILE OF cTnI DISTRIBUTION IN A REFERENCE POPULATION, HAS BEEN CONFIRMED THE DECISION THRESHOLD FOR [place] DIAGNOSIS. Performed By: #### C BC #### [facility] [address] [address] [address] Grzegorz Wang MITZI 109 ng/mL Critically high 9-82 [facility] Comment on above: Performed By: #### C BC #### [facility] [address] [place] [address] Dr. Grzegorz Wang CBC AUTO DIFFon 09-02-2021 BASO # 0.0 103/ul Normal 0.0-0.1 [facility] Comment on above: Performed By: #### C BC #### [facility] [address] [place] [address] Dr. Grzegorz Wang Basophils/100 WBC (Bld) 0.5 % Normal 0.2-2.[address] [facility] Comment on above: Performed By: #### C BC #### [facility] [address] [place] [address] Dr. Grzegorz Wang EO # 0.1 103/ul Normal 0.0-0.7 [facility] Comment on above: Performed By: #### C BC #### [facility] [address] [place] [address] Dr. Grzegorz Wang Eosinophils/100 WBC (Bld) 3.1 % Normal 0.9-7.0 [facility] Comment on above: Performed By: #### C BC #### [facility] [address] [place] [address] Dr. Grzegorz Wang Erythrocyte distribution width (RBC) [Ratio] 16.0 % Critically high 11.0-15.0 [facility] Comment on above: Performed By: #### C BC #### [facility] [address] [place] [address] Dr. Grzegorz Wang Hematocrit (Bld) [Volume fraction] 32.0 % Critically low 36.0-48.0 [facility] Comment on above: Performed By: #### C BC #### [facility] [address] [place] [address] Dr. Grzegorz Wang Hemoglobin (Bld) [Mass/Vol] 10.1 g/dL Critically low 12.0-16.0 [facility] Comment on above: Performed By: #### C BC #### [facility] [address] [place] [address] Dr. Grzegorz Wang IG # 0.01 10e3/ul Normal 0.00-0.03 [facility] Comment on above: Performed By: #### C BC #### [facility] [address] [place] [address] Dr. Grzegorz Wang IG % 0.3 % Normal 0.0-0.5 [facility] Comment on above: Performed By: #### C BC #### [facility] [address] [place] [address] Dr. Grzegorz Wang LYMPH # 1.7 103/ul Normal 1.2-3.8 [facility] Comment on above: Performed By: #### C BC #### [facility] [address] [place] [address] Dr. Grzegorz Wang Lymphocytes/100 WBC (Bld) 43.1 % Normal 20.5-60.0 [facility] Comment on above: Performed By: #### C BC #### [facility] [address] [place] [address] Dr. Grzegorz Wang MANUAL DIFF REQ NO Normal [facility] Comment on above: Performed By: #### C BC #### [facility] [address] [place] [address] Dr. Grzegorz Wang MCH (RBC) [Entitic mass] 23.9 pg Critically low 26.7-34.0 [facility] Comment on above: Performed By: #### C BC #### [facility] [address] [place] [address] Dr. Grzegorz Wang MCHC (RBC) [Mass/Vol] 31.6 g/dL Normal 29.9-35.2 [facility] Comment on above: Performed By: #### C BC #### [facility] [address] [address] [address] Grzegorz Wang MCV (RBC) [Entitic vol] 75.8 fL Critically low 81.0-99. 0 [facility] Comment on above: Performed By: #### C BC #### [facility] [address] [address] [address] Grzegorz Wang MONO # 0.4 103/ul Normal 0.3-0.8 [facility] Comment on above: Performed By: #### C BC #### [facility] [address] [address] [address] Grzegorz Wang Monocytes/100 WBC (Bld) 9.7 % Normal 1.7-12.[address] [facility] Comment on above: Performed By: #### C BC #### [facility] [address] [place] [address] Dr. Grzegorz Wang NEUT # 1.7 103/ul Normal 1.4-6.5 [facility] Comment on above: Performed By: #### C BC #### [facility] [address] [place] [address] Dr. Grzegorz Wang Neutrophils/100 WBC (Bld) 43.3 % Normal 43.0-75.0 [facility] Comment on above: Performed By: #### C BC #### [facility] [address] [place] [address] Dr. Grzegorz Wang Platelet mean volume (Bld) [Entitic vol] 10.1 fL Normal 9.5-13.5 [facility] Comment on above: Performed By: #### C BC #### [facility] [address] [place] [address] Dr. Grzegorz Wang PLT 179 103/ul Normal 150-450 [facility] Comment on above: Performed By: #### C BC #### [facility] [address] [address] [address] Grzegorz Wang RBC 4.22 106/ul Normal 4.20-5.40 [facility] Comment on above: Performed By: #### C BC #### [facility] [address], [place] [address] Dr. Grzegorz Wang WBC 3.8 103/ul Critically low 4.0-11.0 [facility] Comment on above: Performed By: #### C BC #### [facility] [address], [place] [address] CSPINE WO CONon [...] JEAN-PIERRE GIRALDO Date: 2021-09-02 19:33 Normal [facility] CT STROKE HEAD WOon 09-03-[address] [...] JEAN-PIERRE GIRALDO Date: 2021-09-02 19:29 Normal [facility] Covid-19 PCR (CVDTBH)on 08-12 SARS-CoV-2 (COVID-19) RNA SIOBHAN+probe Ql (Unsp spec) Detected Critically abnormal NOT DETECTED [facility] Comment on above: Result Comment: This test is not yet approved or cleared by the [place] FDA. When there are no FDA-approved or cleared tests available, and other criteria are met, FDA can make tests available under an emergency access mechanism called an Emergency Use Authorization (EUA). The EUA for this test is supported by the Quality Assurance Advisor of Health and Human Service's declaration that [...] used). Performed By: #### C BC #### [facility] [address] [place] [address] Dr. Grzegorz Wang DRUG SCREEN RAPID (URINE)on 09-02-2021 AMP Negative Normal NEGATIVE [facility] Comment on above: Performed By: #### E RUR #### [facility] [address] [place] [address] Dr. Grzegorz Wang BAR Negative Normal NEGATIVE [facility] Comment on above: Performed By: #### E RUR #### [facility] [address] [place] [address] Dr. Grzegorz Wang BUP Negative Normal NEGATIVE [facility] Comment on above: Performed By: #### E RUR #### [facility] [address] [place] [address] Dr. Grzegorz Wang BZO Negative Normal NEGATIVE [facility] Comment on above: Performed By: #### E RUR #### [facility] [address] [place] [address] Dr. Grzegorz Wang MITZY Negative Normal NEGATIVE [facility] Comment on above: Performed By: #### E RUR #### [facility] [address] [place], [place] [id number] Dr. Grzegorz Wang CUT-OFFS SEE BELOW Normal [facility] Comment on above: Result Comment: AMP (Amphetamine): 500ng/mL, BAR (Barbituates): 200 ng/mL, BZO (Benzodiazepines): 150 ng/mL, BUP (Buprenorphine): 10 ng/mL, MITZY (Cocaine): 150 ng/mL, mAMP (Methamphetamine): 500 ng/mL, MTD (Methadone): 200 ng/mL, OPI (Opiates): 100 ng/mL, OXY (Oxycodone): 100 ng/mL, PCP (Phencyclidine): 25 ng/mL, PPX (Propoxyphene): 300 ng/mL, THC (Cannabinoids): 50 ng/mL, TCA (Trycyclic Antidepressants): 300 ng/mL Performed By: #### E RUR #### [facility] [address] [place] [address] Dr. Grzegorz Wang DRUG CUT HEADER DRUG CLASS TEST SYSTEM CUT-OFF CONCENTRATIONS ARE FOLLOWS: Normal [facility] Comment on above: Performed By: #### E RUR #### [facility] [address] [place] [address] Dr. Grzegorz Wang mAMP Negative Normal NEGATIVE [facility] Comment on above: Performed By: #### E RUR #### [facility] [address] [place] [address] Dr. Grzegorz Wang MTD Negative Normal NEGATIVE [facility] Comment on above: Performed By: #### E RUR #### [facility] [address] [place] [address] Dr. Grzegorz Wang OPI Negative Normal NEGATIVE [facility] Comment on above: Performed By: #### E RUR #### [facility] [address] [place] [address] Dr. Grzegorz Wang OXY Negative Normal NEGATIVE [facility] Comment on above: Performed By: #### E RUR #### [facility] [address] [place] [address] Dr. Grzegorz Wang PCP Negative Normal NEGATIVE [facility] Comment on above: Performed By: #### E RUR #### [facility] [address] [place] [address] Dr. Grzegorz Wang PPX Negative Normal NEGATIVE [facility] Comment on above: Performed By: #### E RUR #### [facility] [address] [place] [address] Dr. Grzegorz Wang TCA Positive Abnormal NEGATIVE [facility] Comment on above: Performed By: #### E RUR #### [facility] [address] [place] [address] Dr. Grzegorz Wang THC Negative Normal NEGATIVE [facility] Comment on above: Performed By: #### E RUR #### [facility] [address] [place] [address] Dr. Grzegorz Wang LACTATE/LACTIC ACIDon 2021 Lactate [Moles/Vol] 0.7 mmol/L Normal 0.4-1.9 [facility] Comment on above: Performed By: #### E RUR #### [facility] [address] [place] [address] Dr. Grzegorz Wang PROF 14(COMP METB)on 022 Albumin [Mass/Vol] 3.1 g/dL Critically low 3.4-5.0 [facility] Comment on above: Performed By: #### C BC #### [facility] [address] [place] [address] Dr. Grzegorz Wang Albumin/Globulin [Mass ratio] 1.0 {ratio} Normal [facility] Comment on above: Performed By: #### C BC #### [facility] [address] [place] [address] Dr. Grzegorz Wang ALP [Catalytic activity/Vol] 81 U/L Normal 46-116 [facility] Comment on above: Performed By: #### C BC #### [facility] [address] [place] [address] Dr. Grzegorz Wang ALT [Catalytic activity/Vol] 21 U/L Normal 14-59 [facility] Comment on above: Performed By: #### C BC #### [facility] [address] [place] [address] Dr. Grzegorz Wang Anion gap [Moles/Vol] 11.9 mmol/L Normal Th [facility] Comment on above: Performed By: #### C BC #### [facility] [address] [address] [address] Grzegorz Wang AST [Catalytic activity/Vol] 21 U/L Normal 15-37 [facility] Comment on above: Performed By: #### C BC #### [facility] [address] [address] [address] Grzegorz Wang Bilirubin [Mass/Vol] 0.5 mg/dL Normal 0.2-1.0 [facility] Comment on above: Performed By: #### C BC #### [facility] [address] [address] [address] Grzegorz Wang Calcium [Mass/Vol] 8.3 mg/dL Critically low 8.5-10.1 [facility] Comment on above: Performed By: #### C BC #### [facility] [address] [address] [address] Grzegorz Wang Chloride [Moles/Vol] 100 mmol/L Normal 98-107 [facility] Comment on above: Performed By: #### C BC #### [facility] [address] [address] [address] Grzegorz Wang CO2 [Moles/Vol] 25.6 mmol/L Normal 21.0-32.0 [facility] Comment on above: Performed By: #### C BC #### [facility] [address] [address] [address] Grzegorz Wang Creatinine [Mass/Vol] 1.39 mg/dL Critically high 0.55-1.02 [facility] Comment on above: Performed By: #### C BC #### [facility] [address] [address] [address] Grzegorz Wang EGFR-AF GERMAN 45 mL/min/1.73m2 Critically low >=60 [facility] Comment on above: Performed By: #### C BC #### [facility] [address] [address] [address] Grzegorz Wang EGFR-NON AF GERMAN 37 mL/min/1.73m2 Critically low >=60 [facility] Comment on above: Performed By: #### C BC #### [facility] [address] [address] [address] Grzegorz Wang Globulin (S) [Mass/Vol] 3.1 g/dL Normal [facility] Comment on above: Performed By: #### C BC #### [facility] [address] [address] [address] Grzegorz Wang Glucose [Mass/Vol] 96 mg/dL Normal 74-106 [facility] Comment on above: Performed By: #### C BC #### [facility] [address] [address] [address] Grzegorz Wang Potassium [Moles/Vol] 3.5 mmol/L Normal 3.5-5.1 [facility] Comment on above: Performed By: #### C BC #### [facility] [address] [address] [address] Grzegorz Wang Protein [Mass/Vol] 6.2 g/dL Critically low 6.4-8.2 [facility] Comment on above: Performed By: #### C BC #### [facility] [address] [address] [address] Grzegorz Wang Sodium [Moles/Vol] 134 mmol/L Critically low 136-145 [facility] Comment on above: Performed By: #### C BC #### [facility] [address] [address] [address] Grzegorz Wang Urea nitrogen [Mass/Vol] 33.0 mg/dL Critically high 7.0-18.0 [facility] Comment on above: Performed By: #### C BC #### [facility] [address] [address] [address] Grzegorz Wang Urea nitrogen/Creatinine [Mass ratio] 23.7 mg/mg Normal [facility] Comment on above: Performed By: #### C BC #### [facility] [address] [address] [address] Grzegorz Wang PROTIMEon 09-02-2021 INR Coag (PPP) [Relative time] {INR} Normal [facility] Comment on above: Performed By: #### A BRAYDEN, LIPA #### [facility] [address], [place] [address] Dr. Grzegorz Wang INR GUIDELINES SEE BELOW Normal [facility] Comment on above: Result Comment: DENTON RED INR: 2.0 - 3.0 CONDITIONS NOT LISTED BELOW 2.5 - 3.5 FOR PROSTHETIC HEART VALVE REPLACEMENT 2.5 - 3.5 RECURRENT THROMBOSIS Performed By: #### A LUCHO OWENA #### [facility] [address], [place] [address] Dr. Grzegorz Wang PT Coag (PPP) [Time] 10.0 s Normal 9.0-11.6 [facility] Comment on above: Performed By: #### A BRAYDEN LIPA #### [facility] [address] [address] [address] Grzegorz Wang PTTon 09-02-2021 aPTT Coag (Bld) [Time] 32.1 s Normal 22.3-36.2 [facility] Comment on above: Performed By: #### A BRAYDEN LIPA #### [facility] [address], [place] [address] Dr[address] Grzegorz Wang XR CHEST 1 Von [...] NATACHA CERNA Date: 2021-09-02 19:18 Normal [facility] XR hand RT min 3V*on 022 XR hand RT min 3V* [facility] [employer] Other XR hand RT min 3V* [facility] [employer] Other XR hand RT min 3V* [address] [place] [address] [employer] Other XR hand RT min 3V* [place] [address] [employer] Other XR hand RT min 3V* XRay Report [employer] Other XR hand RT min 3V* Signed [employer] Other XR hand RT min 3V* Patient: Ozzie Gifford MR#: [id number] [employer] Other XR hand RT min 3V* [id number] [employer] Other XR hand RT min 3V* : 1950 Acct:[id number] [employer] Other XR hand RT min 3V* Age/Sex: 71 / F ADM Date: 08/02/21 [employer] Other XR hand RT min 3V* Loc: [facility] Room: Type : [facility] [employer] Other XR hand RT min 3V* Attending Dr: Neeraj Arrington MD [employer] Other XR hand RT min 3V* Copies to: Susie Arrington MD [employer] Other XR hand RT min 3V* Ordering Provider: Susie Arrington MD [employer] Other XR hand RT min 3V* Date of Service: 08/02/21 [employer] Other XR hand RT min 3V* XR/XR hand RT min 3V*: Closed nondisplaced fracture of proximal phalanx [employer] Other XR hand RT min 3V* of right mi [employer] Other XR hand RT min 3V* 4 viewsRIGHT hand plain film [employer] Other XR hand RT min 3V* COMPARISON:07/12/21 [employer] Other XR hand RT min 3V* HISTORY:Status post RIGHT long finger proximal phalanx fracture [employer] Other XR hand RT min 3V* No bony alignment stable. No interval healing. Extensive degeneration. [employer] Other XR hand RT min 3V* XR/XR hand RT min 3V* [employer] Other XR hand RT min 3V* IMPRESSION:Stable findings [employer] Other XR hand RT min 3V* Impression dictated by: Husam Martinez M.D.08/02/2021 12:13 PM [employer] Other XR hand RT min 3V* Dictation Location: [place] [address] [employer] Other XR hand RT min 3V* Transcribed By: [facility] 08/02/21 1213 [employer] Other XR hand RT min 3V* Dictated By: Husam Martinez DO 08/02/21 1210 [employer] Other XR hand RT min 3V* Signed By: [employer] Other XR hand RT min 3V* 08/02/21 1213 [facility] [employer] Other BNPon 07-29-2021 Natriuretic peptide B (Bld) [Mass/Vol] 192.0 pg/mL Normal <=900.0 [facility] Comment on above: Performed By: #### E RUR #### [facility] [address] [place] [address] Dr. Grezgorz Wang CARDIAC BAMBI ADMITon 022 CK [Catalytic activity/Vol] 82 U/L Normal 26-192 [facility] Comment on above: Performed By: #### E RUR #### [facility] [address] [address] [address] Grzegorz Wang CK.MB [Mass/Vol] 2.40 ng/mL Normal <=3.60 [facility] Comment on above: Performed By: #### E RUR #### [facility] [address] [address] [address] Grzegorz Wang HSTROP 4.7 pg/mL Normal 4.0-51.3 [facility] Comment on above: Result Comment: CUT- OFF POINTS HAVE BEEN ESTABLISHED BASED ON THE FOURTH UNIVERSAL DEFINITIONS OF MYOCARDIAL INFARCTION. THE UPPER REFERENCE LIMIT (URL) OF TROPONIN, DEFINED THE 99TH PERCENTILE OF cTnI DISTRIBUTION IN A REFERENCE POPULATION, HAS BEEN CONFIRMED THE DECISION THRESHOLD FOR [place] DIAGNOSIS. Performed By: #### E RUR #### [facility] [address] [place] [address] Dr. Grzegorz Wang MITZI 70 ng/mL Normal 9-82 [facility] Comment on above: Performed By: #### E RUR #### [facility] [address] [place] [address] Dr. Grzegorz Wang CBC AUTO DIFFon 07-29-2021 BASO # 0.0 103/ul Normal 0.0-0.1 [facility] Comment on above: Performed By: #### E RUR #### [facility] [address] [place] [address] Dr. Grzegorz Wang Basophils/100 WBC (Bld) 0.7 % Normal 0.2-2.[address] [facility] Comment on above: Performed By: #### E RUR #### [facility] [address] [place] [address] Dr. Grzegorz Wang EO # 0.2 103/ul Normal 0.0-0.7 [facility] Comment on above: Performed By: #### E RUR #### [facility] [address] [place] [address] Dr. Grzegorz Wang Eosinophils/100 WBC (Bld) 4.1 % Normal 0.9-7.0 [facility] Comment on above: Performed By: #### E RUR #### [facility] [address] [place] [address] Dr. Grzegorz Wang Erythrocyte distribution width (RBC) [Ratio] 15.7 % Critically high 11.0-15.0 [facility] Comment on above: Performed By: #### E RUR #### [facility] [address] [place] [address] Dr. Grzegorz Wang Hematocrit (Bld) [Volume fraction] 32.6 % Critically low 36.0-48.0 [facility] Comment on above: Performed By: #### E RUR #### [facility] [address] [place] [address] Dr. Grzegorz Wang Hemoglobin (Bld) [Mass/Vol] 9.9 g/dL Critically low 12.0-16.0 [facility] Comment on above: Performed By: #### E RUR #### [facility] [address] [place] [address] Dr. Grzegorz Wang IG # 0.02 10e3/ul Normal 0.00-0.03 [facility] Comment on above: Performed By: #### E RUR #### [facility] [address] [place] [address] Dr. Grzegorz Wang IG % 0.3 % Normal 0.0-0.5 [facility] Comment on above: Performed By: #### E RUR #### [facility] [address] [place] [address] Dr. Grzegorz Wang LYMPH # 1.7 103/ul Normal 1.2-3.8 [facility] Comment on above: Performed By: #### E RUR #### [facility] [address] [place] [address] Dr. Grzegorz Wang Lymphocytes/100 WBC (Bld) 28.0 % Normal 20.5-60.0 [facility] Comment on above: Performed By: #### E RUR #### [facility] [address] [place] [address] Dr. Grzegorz Wang MANUAL DIFF REQ NO Normal [facility] Comment on above: Performed By: #### E RUR #### [facility] [address] [place] [address] Dr. Grzegorz Wang MCH (RBC) [Entitic mass] 23.9 pg Critically low 26.7-34.0 [facility] Comment on above: Performed By: #### E RUR #### [facility] [address] [place] [address] Dr. Grzegorz Wnag MCHC (RBC) [Mass/Vol] 30.4 g/dL Normal 29.9-35.2 [facility] Comment on above: Performed By: #### E RUR #### [facility] [address] [place] [address] Dr. Grzegorz Wang MCV (RBC) [Entitic vol] 78.7 fL Critically low 81.0-99. 0 [facility] Comment on above: Performed By: #### E RUR #### [facility] [address] [place] [address] Dr. Grzegorz Wang MONO # 0.6 103/ul Normal 0.3-0.8 [facility] Comment on above: Performed By: #### E RUR #### [facility] [facility] [address] [place] [address] Dr. Grzegorz Wang Monocytes/100 WBC (Bld) 10.4 % Normal 1.7-12.[address] [facility] Comment on above: Performed By: #### E RUR #### [facility] [address] [place] [address] Dr. Grzegorz Wang NEUT # 3.3 103/ul Normal 1.4-6.5 [facility] Comment on above: Performed By: #### E RUR #### [facility] [address] [place] [address] Dr. Grzegorz Wang Neutrophils/100 WBC (Bld) 56.5 % Normal 43.0-75.0 [facility] Comment on above: Performed By: #### E RUR #### [facility] [address] [place] [address] Dr. Grzegorz Wang Platelet mean volume (Bld) [Entitic vol] 10.2 fL Normal 9.5-13.5 [facility] Comment on above: Performed By: #### E RUR #### [facility] [address] [place] [address] Dr. Grzegorz Wang PLT 216 103/ul Normal 150-450 [facility] Comment on above: Performed By: #### E RUR #### [facility] [address] [place] [address] Dr. Grzegorz Wang RBC 4.14 106/ul Critically low 4.20-5.40 [facility] Comment on above: Performed By: #### E RUR #### [facility] [address] [place] [address] Dr. Grzegorz Wang WBC 5.9 103/ul Normal 4.0-11.0 [facility] Comment on above: Performed By: #### E RUR #### [facility] [address] [place] [address] HEAD WO CONon [...] DORIAN GREENE Date: 2021-07-29 15:01 Normal [facility] ER URINE PROFILEon 2 Bilirubin Ql (U) Negative Normal NEGATIVE [facility] Comment on above: Performed By: #### E RUR #### [facility] [address] [place] [address] Dr. Grzegorz Wang Clarity (U) CLEAR Normal CLEAR [facility] Comment on above: Performed By: #### E RUR #### [facility] [address] [place] [address] Dr. Grzegorz Wang Color (U) LT. YELLOW Normal YELLOW [facility] Comment on above: Performed By: #### E RUR #### [facility] [address] [place] [address] Dr. Grzegorz Wang ERUAHD A micrscopic examination will be performed if indicated. Normal [facility] Comment on above: Performed By: #### E RUR #### [facility] [address] [place] [address] Dr. Grzegorz Wang Glucose Ql (U) Negative Normal NEGATIVE [facility] Comment on above: Performed By: #### E RUR #### [facility] [address] [place] [address] Dr. Grzegorz Wang Hemoglobin Ql (U) Negative Normal NEGATIVE [facility] Comment on above: Performed By: #### E RUR #### [facility] [address] [place] [address] Dr. Grzegorz Wang Ketones Ql (U) Negative Normal NEGATIVE [facility] Comment on above: Performed By: #### E RUR #### [facility] [address] [place] [address] Dr. Grzegorz Wang LEUKOCYTES Negative Normal NEGATIVE [facility] Comment on above: Performed By: #### E RUR #### [facility] [address] [place] [address] Dr. Grzegorz Wang Nitrite Ql (U) Negative Normal NEGATIVE [facility] Comment on above: Performed By: #### E RUR #### [facility] [address] [place] [address] Dr. Grzegorz Wang pH (U) 5.5 [pH] Normal 5-9 [facility] Comment on above: Performed By: #### E RUR #### [facility] [address] [place] [address] Dr. Grzegorz Wang SPEC GRAVITY 1.010 Normal 1.005-<=1.0 25 [facility] Comment on above: Performed By: #### E RUR #### [facility] [address] [place] [address] Dr. Grzegorz Wang UA PROTEIN Negative Normal NEGATIVE/ TRACE [facility] Comment on above: Performed By: #### E RUR #### [facility] [address] [place] [address] Dr. Grzegorz Wang UR MICRO IND NOT INDICATED Normal [facility] Comment on above: Performed By: #### E RUR #### [facility] [address] [place] [address] Dr. Grzegorz Wang Urobilinogen Qn (U) 0.2 {Lidya'U}/dL Normal 0.2 - 1. 0 [facility] Comment on above: Performed By: #### E RUR #### [facility] [address] [place] [address] Dr. Grzegorz Wang PROF 14(COMP METB)on 022 Albumin [Mass/Vol] 3.1 g/dL Critically low 3.4-5.0 [facility] Comment on above: Performed By: #### E RUR #### [facility] [address] [place] [address] Dr. Grzegorz Wang Albumin/Globulin [Mass ratio] 1.0 {ratio} Normal [facility] Comment on above: Performed By: #### E RUR #### [facility] [address] [place] [address] Dr. Grzegorz Wang ALP [Catalytic activity/Vol] 99 U/L Normal 46-116 [facility] Comment on above: Performed By: #### E RUR #### [facility] [address] [place] [address] Dr. Grzegorz Wang ALT [Catalytic activity/Vol] 18 U/L Normal 14-59 [facility] Comment on above: Performed By: #### E RUR #### [facility] [address] [place] [address] Dr. Grzegorz Wang Anion gap [Moles/Vol] 10.5 mmol/L Normal Th [facility] Comment on above: Performed By: #### E RUR #### [facility] [address] [place] [address] Dr. Grzegorz Wang AST [Catalytic activity/Vol] 14 U/L Critically low 15-37 [facility] Comment on above: Performed By: #### E RUR #### [facility] [address] [place] [address] Dr. Grzegorz Wang Bilirubin [Mass/Vol] 0.3 mg/dL Normal 0.2-1.0 [facility] Comment on above: Performed By: #### E RUR #### [facility] [address] [place] [address] Dr. Grzegorz Wang Calcium [Mass/Vol] 8.5 mg/dL Normal 8.5-10.1 [facility] Comment on above: Performed By: #### E RUR #### [facility] [address] [place] [address] Dr. Grzegorz Wang Chloride [Moles/Vol] 108 mmol/L Critically high 98-107 [facility] Comment on above: Performed By: #### E RUR #### [facility] [address] [place] [address] Dr. Grzegorz Wang CO2 [Moles/Vol] 26.0 mmol/L Normal 21.0-32.0 [facility] Comment on above: Performed By: #### E RUR #### [facility] [address] [place] [address] Dr. Grzegorz Wang Creatinine [Mass/Vol] 1.07 mg/dL Critically high 0.55-1.02 [facility] Comment on above: Performed By: #### E RUR #### [facility] [address] [place] [address] Dr. Grzegorz Wang EGFR-AF GERMAN >60 Normal >=60 [facility] Comment on above: Performed By: #### E RUR #### [facility] [address] [place] [address] Dr. Grzegorz Wang EGFR-NON AF GERMAN 50 mL/min/1.73m2 Critically low >=60 [facility] Comment on above: Performed By: #### E RUR #### [facility] [address] [place] [address] Dr. Grzegorz Wang Globulin (S) [Mass/Vol] 3.0 g/dL Normal [facility] Comment on above: Performed By: #### E RUR #### [facility] [address] [place] [address] Dr. Grzegorz Wang Glucose [Mass/Vol] 87 mg/dL Normal 74-106 [facility] Comment on above: Performed By: #### E RUR #### [facility] [address] [place] [address] Dr. Grzegorz Wang Potassium [Moles/Vol] 3.5 mmol/L Normal 3.5-5.1 [facility] Comment on above: Performed By: #### E RUR #### [facility] [address] [place] [address] Dr. Grzegorz Wang Protein [Mass/Vol] 6.1 g/dL Critically low 6.4-8.2 Th [facility] Comment on above: Performed By: #### E RUR #### [facility] [address] [place] [address] Dr. Grzegorz Wang Sodium [Moles/Vol] 141 mmol/L Normal 136-145 [facility] Comment on above: Performed By: #### E RUR #### [facility] [address] [place] [address] Dr. Grzegorz Wang Urea nitrogen [Mass/Vol] 22.0 mg/dL Critically high 7.0-18.0 [facility] Comment on above: Performed By: #### E RUR #### [facility] [address] [place] [address] Dr. Grzegorz Wang Urea nitrogen/Creatinine [Mass ratio] 20.6 mg/mg Normal [facility] Comment on above: Performed By: #### E RUR #### [facility] [address] [place] [address] Dr. Grzegorz Wang PROTIMEon 07-29-2021 INR Coag (PPP) [Relative time] 0.99 {INR} Normal [facility] Comment on above: Performed By: #### P TT, PT #### [facility] [address] [place] [address] Dr. Grzegorz Wang INR GUIDELINES SEE BELOW Normal [facility] Comment on above: Result Comment: DENTON RED INR: 2.0 - 3.0 CONDITIONS NOT LISTED BELOW 2.5 - 3.5 FOR PROSTHETIC HEART VALVE REPLACEMENT 2.5 - 3.5 RECURRENT THROMBOSIS Performed By: #### P TT, PT #### [facility] [address] [place] [address] Dr. Grzegorz Wang PT Coag (PPP) [Time] 10.7 s Normal 9.0-11.6 [facility] Comment on above: Performed By: #### P TT, PT #### [facility] [address] [place], [place] [address] Dr. Grzegorz Wang PTTon 07-29-2021 aPTT Coag (Bld) [Time] 31.0 s Normal 22.3-36.2 Th e [facility] Comment on above: Performed By: #### P TT, PT #### [facility] [address] [place], [place] [address] Dr. Grzegorz Wang XR CHEST 1 Von [...] by: NATACHA TO Date: 2021-07-29 14:54 Normal [facility] XR hand RT min 3V*on 022 XR hand RT min 3V* [facility] Dispop Other XR hand RT min 3V* [facility] [employer] Other XR hand RT min 3V* [address] [place] [address] Dis[employer] Other XR hand RT min 3V* [place] [address] [employer] Other XR hand RT min 3V* XRay Report [employer] Other XR hand RT min 3V* Signed [employer] Other XR hand RT min 3V* Patient: Ozzie Gifford MR#: [id number] [employer] Other XR hand RT min 3V* [id number] [employer] Other XR hand RT min 3V* : 1950 Acct:[id number] [employer] Other XR hand RT min 3V* Age/Sex: 71 / F ADM Date: 07/12/21 [employer] Other XR hand RT min 3V* Loc: SOXD Room: Type : [facility] Dispop Other XR hand RT min 3V* Attending Dr: Neeraj Arrington MD [employer] Other XR hand RT min 3V* Ordering Provider: Susie Arrington MD [employer] Other XR hand RT min 3V* Date of Service: 07/12/21 [employer] Other XR hand RT min 3V* XR/XR hand RT min 3V*: Right hand pain [employer] Other XR hand RT min 3V* Copies to: Susie Arrington MD [employer] Other XR hand RT min 3V* XR hand RT min 3V* 07/12/2021 10:43 AM [employer] Other XR hand RT min 3V* SIGNS AND SYMPTOMS: Fall, pain in right hand greatest in the right thumb with swelling [employer] Other XR hand RT min 3V* PROTOCOL: Frontal, lateral, and oblique radiographs of the right hand [employer] Other XR hand RT min 3V* COMPARISON: None [facility] Other XR hand RT min 3V* FINDINGS: Dispop Other XR hand RT min 3V* There is mild narrowing of the distal interphalangeal joints. There is a mild flexion deformity of [employer] Other XR hand RT min 3V* the fifth proximal interphalangeal joint. There is mild narrowing of the first metacarpophalangeal [employer] Other XR hand RT min 3V* junction with mild t o moderate degenerative change at the first carpometacarpal joint. There is no [employer] Other XR hand RT min 3V* evidence of acute displaced fracture. No evidence of dislocation. [employer] Other XR hand RT min 3V* XR/XR hand RT min 3V* [employer] Other XR hand RT min 3V* IMPRESSION: Dispop Other XR hand RT min 3V* No evidence of fracture. [employer] Other XR hand RT min 3V* Degenerative changes are noted, greatest in the thumb. Dis[employer] Other XR hand RT min 3V* There is a mild flexion deformity of the fifth proximal interphalangeal joint. [employer] Other XR hand RT min 3V* Impression dictated by: Bambi Sung M.D.07/12/2021 12:29 PM [facility] Other XR hand RT min 3V* Dictation Location: [place] [address] [facility] Other XR hand RT min 3V* Transcribed By: SHYANN 07/12/21 1229 [facility] Other XR hand RT min 3V* Dictated By: Bambi Sung II, MD 07/12/21 [facility]8 [facility] Other XR hand RT min 3V* Signed By: Dispop Other XR hand RT min 3V* 07/12/[address] [place] [address] Textá[employer] Other CBC AUTO DIFFon 05-08-2021 BASO # 0.1 103/ul Normal 0.0-0.1 [facility] Comment on above: Performed By: #### C BC #### [facility] [address] [place] [address] [address] Grzegorz Wang Basophils/100 WBC (Bld) 0.8 % Normal 0.2-2.[address] [facility] Comment on above: Performed By: #### C BC #### [facility] [address] [place] [address] Dr. Grzegorz Wang EO # 0.3 103/ul Normal 0.0-0.7 [facility] Comment on above: Performed By: #### C BC #### [facility] [address] [place] [address] Dr. Grzegorz Wang Eosinophils/100 WBC (Bld) 3.8 % Normal 0.9-7.0 [facility] Comment on above: Performed By: #### C BC #### [facility] [address] [place] [address] Dr. Grzegorz Wang Erythrocyte distribution width (RBC) [Ratio] 14.1 % Normal 11.0-15.0 [facility] Comment on above: Performed By: #### C BC #### [facility] [address] [place] [address] Dr. Grzegorz Wang Hematocrit (Bld) [Volume fraction] 34.4 % Critically low 36.0-48.0 [facility] Comment on above: Performed By: #### C BC #### [facility] [address] [place] [address] Dr. Grzegorz Wang Hemoglobin (Bld) [Mass/Vol] 10.4 g/dL Critically low 12.0-16.0 [facility] Comment on above: Performed By: #### C BC #### [facility] [address] [place] [address] Dr. Grzegorz Wang IG # 0.04 10e3/ul Critically high 0.00-0.03 [facility] Comment on above: Performed By: #### C BC #### [facility] [address] [place] [address] Dr. Grzegorz Wang IG % 0.5 % Normal 0.0-0.5 [facility] Comment on above: Performed By: #### C BC #### [facility] [address] [place] [address] Dr. Grzegorz Wang LYMPH # 1.7 103/ul Normal 1.2-3.8 [facility] Comment on above: Performed By: #### C BC #### [facility] [address] [place] [address] Dr. Grzegorz Wang Lymphocytes/100 WBC (Bld) 22.1 % Normal 20.5-60.0 [facility] Comment on above: Performed By: #### C BC #### [facility] [address] [place] [address] Dr. Grzegorz Wang MANUAL DIFF REQ NO Normal [facility] Comment on above: Performed By: #### C BC #### [facility] [address] [place] [address] Dr. Grzegorz Wang MCH (RBC) [Entitic mass] 25.6 pg Critically low 26.7-34.0 [facility] Comment on above: Performed By: #### C BC #### [facility] [address] [place] [address] Dr. Grzegorz Wang MCHC (RBC) [Mass/Vol] 30.2 g/dL Normal 29.9-35.2 [facility] Comment on above: Performed By: #### C BC #### [facility] [address] [place] [address] Dr. Grzegorz Wang MCV (RBC) [Entitic vol] 84.5 fL Normal 81.0-99.[address] [facility] Comment on above: Performed By: #### C BC #### [facility] [address] [place] [address] Dr. Grzegorz Wang MONO # 0.8 103/ul Normal 0.3-0.8 [facility] Comment on above: Performed By: #### C BC #### [facility] [address] [place] [address] Dr. Grzegorz Wang Monocytes/100 WBC (Bld) 11.1 % Normal 1.7-12.[address] [facility] Comment on above: Performed By: #### C BC #### [facility] [address] [place] [address] Dr. Grzegorz Wang NEUT # 4.7 103/ul Normal 1.4-6.5 [facility] Comment on above: Performed By: #### C BC #### [facility] [address] [place] [address] [address] Grzegorz Wang Neutrophils/100 WBC (Bld) 61.7 % Normal 43.0-75.0 [facility] Comment on above: Performed By: #### C BC #### [facility] [address] [place] [id number] Grzegorz Wang Platelet mean volume (Bld) [Entitic vol] 10.6 fL Normal 9.5-13.5 [facility] Comment on above: Performed By: #### C BC #### [facility] [address] [id number] Grzegorz Wang PLT 281 103/ul Normal 150-450 [facility] Comment on above: Performed By: #### C BC #### [facility] [address] [place] [address] [address] Grzegorz Wang RBC 4.07 106/ul Critically low 4.20-5.40 [facility] Comment on above: Performed By: #### C BC #### [facility] [address] [id number] Grzegorz Wang WBC 7.6 103/ul Normal 4.0-11.0 [facility] Comment on above: Performed By: #### C BC #### [facility] [address] [place], [place] [id number] Dr. 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 A tiny amount of air in the venous system in the right parapharyngeal space and in the venous system of the right tailings dam laborer space. A tiny amount air in probably [...] space and venous system in the right tailings dam laborer space, likely iatrogenic. No abnormal fluid collection. Prior right carotid endarterectomy. 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 Electronically authenticated by: BASIM CABAN Date: 2021-05-08 19:23 Normal [facility] PROF CHEM 8 (BAS METB)on Anion gap [Moles/Vol] 12.3 mmol/L Normal [facility] Comment on above: Performed By: #### A MY LIPA #### [facility] [address] [place] [address] [address] Grzegorz Wang Calcium [Mass/Vol] 8.4 mg/dL Critically low 8.5-10.1 [facility] Comment on above: Performed By: #### A MY LIPA #### [facility] [address] [place], [place] [address] Dr. Grzegorz Wang Chloride [Moles/Vol] 108 mmol/L Critically high 98-107 [facility] Comment on above: Performed By: #### A MY LIPA #### [facility] [address] [place] [address] Dr. Grzegorz Wang CO2 [Moles/Vol] 25.9 mmol/L Normal 22.0-30.0 [facility] Comment on above: Performed By: #### A MY, LIPA #### [facility] [address] [place] [address] Dr. Grzegorz Wang Creatinine [Mass/Vol] 1.18 mg/dL Critically high 0.52-1.04 [facility] Comment on above: Performed By: #### A BRAYDEN LIPA #### [facility] [address] [place] [address] Dr. Grzegorz Wang EGFR-AF GERMAN 55 mL/min/1.73m2 Critically low >=60 [facility] Comment on above: Performed By: #### A BRAYDEN LIPA #### [facility] [address] [place] [address] Dr. Grzegorz Wang EGFR-NON AF GERMAN 45 mL/min/1.73m2 Critically low >=60 [facility] Comment on above: Performed By: #### A BRAYDEN LIPA #### [facility] [address] [place] [address] Dr. Grzegorz Wang Glucose [Mass/Vol] 84 mg/dL Normal 74-106 [facility] Comment on above: Performed By: #### A BRAYDEN LIPA #### [facility] [address] [place] [address] Dr. Grzegorz Wang Potassium [Moles/Vol] 3.2 mmol/L Critically low 3.4-5.0 [facility] Comment on above: Performed By: #### A MY LIPA #### [facility] [address] [place] [address] Dr. Grzegorz Wang Sodium [Moles/Vol] 143 mmol/L Normal 137-145 [facility] Comment on above: Performed By: #### A MY LIPA #### [facility] [address] [place] [address] Dr. Grzegorz Wang Urea nitrogen [Mass/Vol] 35.0 mg/dL Critically high 7.0-18.0 [facility] Comment on above: Performed By: #### A PHIL OWEN #### [facility] [address] [place], [place] [address] Dr. Grzegorz Wang Urea nitrogen/Creatinine [Mass ratio] 29.7 mg/mg Normal [facility] Comment on above: Performed By: #### A PHIL OWEN #### [facility] [address] [place] [id number] Grzegorz Wang XR PELVIS 1_2 VIEWSon [...] by: LUCI MARADIAGA Date: 2021-05-08 17:24 Normal [facility] XR wrist LT min 3V*on 2021 XR wrist LT min 3V* [facility] [employer] Other XR wrist LT min 3V* [facility] [employer] Other XR wrist LT min 3V* [address] [place] [address] [employer] Other XR wrist LT min 3V* [place], [place] [id number] [place] [address] [employer] Other XR wrist LT min 3V* X[facility] Report [place] [employer] Other XR wrist LT min 3V* Signed [employer] Other XR wrist LT min 3V* Patient: Ozzie Gifford MR#: [id number] [place] [employer] Other XR wrist LT min 3V* [id number] [employer] Other XR wrist LT min 3V* : 1950 Acct:[id number] [employer] Other XR wrist LT min 3V* Age/Sex: 70 / F ADM Date: 05/03/21 Dis[facility] Other XR wrist LT min 3V* Loc: SOXD Room: Type : [facility] Dispop Other XR wrist LT min 3V* Attending Dr: Neeraj Arrington MD [employer] Other XR wrist LT min 3V* Ordering Provider: Susie Arrington MD [employer] Other XR wrist LT min 3V* Date of Service: 05/03/21 Dispop Other XR wrist LT min 3V* XR/XR wrist LT min 3V*: Other specified postprocedural states Dispop Other XR wrist LT min 3V* Copies to: Susie Arrington MD [employer] Other XR wrist LT min 3V* 4 viewsLEFT wrist plain film Dis[employer] Other XR wrist LT min 3V* COMPARISON:03/31/21 [employer] Other XR wrist LT min 3V* HISTORY:Status post ORIF distal radius fracture [employer] Other XR wrist LT min 3V* No hardware failure. Adequate bony alignment. Healing distal radius fracture noted. [employer] Other XR wrist LT min 3V* XR/XR wrist LT min 3V* [employer] Other XR wrist LT min 3V* IMPRESSION:Healing distal radius fracture. No hardware failure. [employer] Other XR wrist LT min 3V* Impression dictated by: Husam Martinez M.D.05/03/2021 2:12 PM [employer] Other XR wrist LT min 3V* Dictation Location: [place] [address] [employer]pop Other XR wrist LT min 3V* Transcribed By: SHYANN 05/03/21 1412 [employer] Other XR wrist LT min 3V* Dictated By: Husam Martinez DO 05/03/21 1411 [employer] Other XR wrist LT min 3V* Signed By: Dispop Other XR wrist LT min 3V* 05/03/21 141 No rt [employer] Other XR FOREARM LT 2 VIEWSon 03-14 [...] by: MARYSE LANGFORD Date: 2021-03-30 20:17 Normal [facility] Cardiovascular Lab Reporton 03-03-2020 Cardiovascular Lab Report [facility] Patient Name: [facility] [place] Ozzie MR #: [id number] Department of Physician: Donna Henderson M.D. Division of Service Date: 03/03/2020 Cardiology Birthdate: 1950 Adult Cardiovascular Room #: [address] [place] [address] Cardiovascular Laboratory Report FINAL IMPRESSION: 1. Moderate [...] femoral vein and artery was obtained. A 6-Albanian 11 cm sheath was inserted in each. Difficulty exchanging the micropuncture kit for a 6-Albanian sheath encountered for the arterial access site; [...] physiological assessment of the coronary lesions. A 6-Albanian XB 3.5 guide catheter was advanced over [...] trauma. The guide catheter was removed. A 5-Albanian JR4 guide catheter was advanced in and [...] Doty M.D. Date Trans: 03/03/2020 12:28 P/mmo [id number] cc: Nicolas Carrillo M.D. Heart Failure/ Transplant Mailstop 1111 [facility] [address], [employer] [address] [place] Mailstop 1118 [facility] [address] Normal [facility] Vital Signs Date Time Vital Sign Value Performing Clinician Facility 10-16-2022 14:10-0400 Body height 154.94 cm Kori Temple Other [facility] Other 10-16-2022 14:10-0400 Body mass index (BMI) [Ratio] 26.53 kg/m2 Kori Temple Other [facility] Other 10-16-2022 14:10-0400 Body temperature 98.1 [degF] Kori Temple Other [facility] Other 10-16-2022 14:10-0400 Body weight 63.69 kg Kori Windy Other [facility] Other 10-16-2022 14:10-0400 Diastolic blood pressure 81 mm[Hg] Kori Windy Other [facility] Other 10-16-2022 14:10-0400 Respiratory rate 18 /min Kori Windy Other [facility] Other 10-16-2022 14:10-0400 SaO2% (BldA) [Mass fraction] 98 % Kori Windy Other [facility] Other 10-16-2022 14:10-0400 Systolic blood pressure 139 mm[Hg] Kori Temple Other [facility] Other 04-04-2022 09:30-0500 Body height 154.94 cm Denver Juarez Other [facility] Other 04-04-2022 09:30-0500 Body mass index (BMI) [Ratio] 28.72 kg/m2 Denver Juarez Other [facility] Other 04-04-2022 09:30-0500 Body temperature 97.8 [degF] Denver Juarez Other [facility] Other 04-04-2022 09:30-0500 Body weight 68.95 kg Denver Juarez Other [facility] Other 04-04-2022 09:30-0500 Diastolic blood pressure 72 mm[Hg] Denver Juarez Other [facility] Other 04-04-2022 09:30-0500 SaO2% (BldA) [Mass fraction] 98 % Denver Millernorah Other [facility] [employer] Other 04-04-2022 09:30-0500 Systolic blood pressure 116 mm[Hg] Denver Larry Other [facility] [employer] Other 11-22-2021 12:12-0400 Body temperature 97.9 [degF] MD Shaikh Day Work Phone: [facility] 11-22-2021 12:12-0400 Diastolic blood pressure 82 mm[Hg] MD Shaikh Day Work Phone: [facility] 11-22-2021 12:12-0400 Heart rate 95 /min MD Shaikh Day Work Phone: [facility] 11-22-2021 12:12-0400 Respiratory rate 16 /min MD Shaikh Day Work Phone: [facility] 11-22-2021 12:12-0400 SaO2% (BldA) [Mass fraction] 98 % MD Shaikh Day Work Phone: [facility] 11-22-2021 12:12-0400 Systolic blood pressure 151 mm[Hg] MD Shaikh Day Work Phone: [facility] 11-22-2021 04:04-0400 Body weight 78.6 kg MD Shaikh Day Work Phone: [facility] 11-21-2021 17:12-0400 Body height 157.48 cm MD Shaikh Day Work Phone: [facility] 11-21-2021 13:57-0400 Diastolic blood pressure 56 mm[Hg] MD Shaikh Day Work Phone: [facility] 11-21-2021 13:57-0400 Heart rate 77 /min MD Shaikh Day Work Phone: [facility] 11-21-2021 13:57-0400 Respiratory rate 16 /min MD Shaikh Day Work Phone: [facility] 11-21-2021 13:57-0400 SaO2% (BldA) [Mass fraction] 95 % MD Shaikh Day Work Phone: [facility] 11-21-2021 13:57-0400 Systolic blood pressure 117 mm[Hg] MD Shaikh Day Work Phone: [facility] 11-21-2021 11:24-0400 Body temperature 96.9 [degF] MD Shaikh Day Work Phone: [facility] 11-21-2021 03:56-0400 Body height 157.48 cm MD Shaikh Day Work Phone: [facility] 11-21-2021 03:56-0400 Body weight 75.9 kg MD Shaikh Day Work Phone: [facility] 09-27-2021 10:15-0400 Body height 154.94 cm Denver Juarez Other [facility] Other 09-27-2021 10:15-0400 Body mass index (BMI) [Ratio] 35.9 kg/m2 Denver Juarez Other [facility] Other 09-27-2021 10:15-0400 Body temperature 96.2 [degF] Denver Juarez Other [facility] Other 09-27-2021 10:15-0400 Body weight 86.18 kg Denver Juarez Other [facility] Other 09-27-2021 10:15-0400 Diastolic blood pressure 52 mm[Hg] Denver Juarez Other [facility] Other 09-27-2021 10:15-0400 SaO2% (BldA) [Mass fraction] 97 % Denver Juarez Other [facility] Other 09-27-2021 10:15-0400 Systolic blood pressure 110 mm[Hg] Denver Millernorah Other [facility] Other 09-22-2021 14:15-0400 Body height 154.94 cm Ilda Das Other [facility] Other 09-22-2021 14:15-0400 Body mass index (BMI) [Ratio] 35.9 kg/m2 Ilda Das Other [facility] Other 09-22-2021 14:15-0400 Body temperature 98.2 [degF] Ilda Das Other [facility] Other 09-22-2021 14:15-0400 Body weight 86.18 kg Ilda Das Other [facility] Other 09-22-2021 14:15-0400 Respiratory rate 18 /min Ilda Das Other [facility] Other 09-22-2021 14:15-0400 SaO2% (BldA) [Mass fraction] 98 % Ilda Das Other [facility] Other 09-20-2021 17:00-0400 Body height 154.94 cm Susie Arrington Other [facility] Other 09-20-2021 17:00-0400 Body mass index (BMI) [Ratio] 35.9 kg/m2 Susie Arrington Other [facility] Other 09-20-2021 17:00-0400 Body weight 86.18 kg Susie Arrington Other [facility] Other 05-03-2021 11:45-0400 Body height 154.94 cm Susie Arrington Other [facility] Other 05-03-2021 11:45-0400 Body mass index (BMI) [Ratio] 35.9 kg/m2 Susie Arrnigton Other [facility] Other 05-03-2021 11:45-0400 Body weight 86.18 kg Susie Arrington Other [facility] Other 03-02-2021 10:00-0500 Body height 154.94 cm Denver Juarez Other [facility] Other 03-02-2021 10:00-0500 Body mass index (BMI) [Ratio] 36.27 kg/m2 Denver Juarez Other [facility] Other 03-02-2021 10:00-0500 Body temperature 96.5 [degF] Denver Juarez Other [facility] Other 03-02-2021 10:00-0500 Body weight 87.09 kg Denver Juarez Other [facility] Other 03-02-2021 10:00-0500 Diastolic blood pressure 58 mm[Hg] Denver Juarez Other [facility] Other 03-02-2021 10:00-0500 SaO2% (BldA) [Mass fraction] 99 % Denverjessy Juarez Other [facility] Other 03-02-2021 10:00-0500 Systolic blood pressure 108 mm[Hg] Denver Juarez Other [facility] Other 12-01-2020 10:00-0400 Body height 154.94 cm Denver Juarez Other [facility] Other 12-01-2020 10:00-0400 Body mass index (BMI) [Ratio] 36.27 kg/m2 Denver Juarez Other [facility] Other 12-01-2020 10:00-0400 Body weight 87.09 kg Denver Larry Other [facility] Other 12-01-2020 10:00-0400 Diastolic blood pressure 79 mm[Hg] Denver Juarez Other [facility] Other 12-01-2020 10:00-0400 Systolic blood pressure 149 mm[Hg] Denver Juarez Other [facility] Other 11-10-2020 10:30-0400 Body height 154.94 cm Denver Juarez Other [facility] Other 11-10-2020 10:30-0400 Body mass index (BMI) [Ratio] 35.9 kg/m2 Denver Juarez Other [facility] Other 11-10-2020 10:30-0400 Body weight 86.18 kg Denver Juarez Other [facility] Other 11-10-2020 10:30-0400 Diastolic blood pressure 84 mm[Hg] Denver Juarez Other [facility] Other 11-10-2020 10:30-0400 Systolic blood pressure 150 mm[Hg] Denver Juarez Other [facility] Other Encounters Encounter Date Encounter Type Care Provider Facility Start: 02-20-2023 End: 02-20-2023 ambulatory SHAIKH BARB Not Available Start: 02-16-2023 ambulatory [facility] Start: 02-13-2023 End: 02-13-2023 ambulatory [facility] Start: 01-24-2023 Telephone encounter Charlette Burr [facility] Comment on above: paperwork Start: 01-21-2023 ambulatory Shaikh Barb Facility: [facility] Start: 10-16-2022 End: 10-16-2022 ambulatory Kori Temple Other [facility] Other Start: 10-16-2022 Office outpatient visit 15 minutes Kori Temple [facility] Start: 08-28-2022 End: 08-28-2022 ambulatory NICOLAS LOMAXBHUPENDRA [facility] Start: 04-04-2022 Office outpatient visit 15 minutes Denver Juarez [facility] Start: 04-04-2022 End: 04-04-2022 ambulatory Denver Juarez [facility] Other Start: 03-06-2022 End: 03-06-2022 ambulatory Earline Harris Other [facility] Other Start: 03-06-2022 Telephone encounter Earline Harris [facility] Start: 03-05-2022 End: 03-05-2022 ambulatory MEGHANN FONSECA [facility] Start: 03-02-2022 End: 03-02-2022 ambulatory De Oliveira Fawwad Facility:[facility] Start: 03-02-2022 End: 03-02-2022 ambulatory MD Gerry Hartley Work Phone: [facility] Work Phone: Start: 03-02-2022 End: 03-02-2022 Departed Referred MD Gerry Hartley Work Phone: [facility]-Lab [place] Work Phone: Start: 02-21-2022 End: 02-22-2022 ambulatory MEGHANN FONSECA Facility:[facility] Start: 02-20-2022 End: 02-21-2022 ambulatory DE OLIVEIRA H FAWWAD Facility:[facility] Start: 01-31-2022 End: 02-01-2022 ambulatory DE OLIVEIRA H FAWWAD Facility:[facility] Start: 01-22-2022 End: 01-23-2022 ambulatory DE OLIVEIRA H FAWWAD Facility:[facility] Start: 01-18-2022 End: 01-19-[address] Facility:[facility]1 Start: 01-09-2022 End: 01-09-2022 ambulatory MD Shaikh Day Work Phone: [facility] Work Phone: Start: 01-09-2022 End: 01-09-2022 Discharged Recurring MD Shaikh Day Work Phone: [facility]-Speech Therapy [address] Start: 01-02-2022 End: 01-03-2022 ambulatory DE OLIVEIRA H FAWWAD Facility:[facility]1 Start: 12-07-2021 End: 12-08-2021 ambulatory DE OLIVEIRA H FAWWAD Facility:[facility]1 Start: 11-27-2021 End: 11-28-2021 ambulatory DE OLIVEIRA H FAWWAD Facility:[facility]1 Start: 11-26-2021 End: 11-26-2021 ambulatory DE OLIVEIRA H FAWWAD Facility:[facility]1 Start: 11-24-2021 End: 11-24-2021 Emergency department patient visit 837 NO [facility]ILY PHYSICIAN Facility:[id number] Start: 11-21-2021 End: 11-22-2021 Evaluation and management of inpatient MD Shaikh Day Work Phone: [facility] Start: 11-14-2021 Registered Recurring MD Shaikh Day Work Phone: [facility]-Speech Therapy [address] Start: 10-31-2021 End: 10-31-2021 ambulatory Denver Juarez Other [facility] Other Start: 10-31-2021 Telephone encounter Denver Chanel [facility] [place] Start: 10-24-2021 End: 10-25-2021 ambulatory SHAIKH Be DAY Facility:[facility]1 Start: 10-16-2021 End: 10-18-2021 Evaluation and management of inpatient SHAIKH Be DAY Facility:[facility]1 Start: 09-27-2021 End: 09-27-2021 ambulatory Denver Juarez Other [facility] Other Start: 09-27-2021 Office outpatient visit 15 minutes Denver Juarez [facility] Start: 09-22-2021 End: 09-22-2021 ambulatory Ilda Das Other [facility] Other Start: 09-22-2021 Office outpatient visit 15 minutes Ilda Das [facility] Start: 09-20-2021 End: 09-20-2021 ambulatory Susie Arrington Other [facility] Other Start: 09-20-2021 Office outpatient visit 10 minutes Susie Arrington [facility] Start: 09-02-2021 End: 09-02-2021 ambulatory SHAIKH Be DAY Facility:[facility]1 Start: 08-31-2021 End: 08-31-2021 Patient encounter procedure MD Shaikh Day Work Phone: [facility]-Ultrasound [place] [facility] Start: 08-29-2021 Registered Recurring MD Shaikh Day Work Phone: [facility]-Speech Therapy [address] Start: 08-24-2021 ambulatory LIZ ATWOODCKER Facility :[facility]1 Start: 08-02-2021 End: 08-02-2021 ambulatory Susie Arrington Other [facility] Other Start: 08-02-2021 End: 08-02-2021 Patient encounter procedure Susiejennifer Arrington [facility] Start: 07-29-2021 End: 07-29-2021 ambulatory SHAIKH Be DAY Facility:[facility]1 Start: 07-12-2021 End: 07-12-2021 ambulatory Susie Arrington Other [facility] Other Start: 07-12-2021 Office outpatient visit 15 minutes Susiejennifer Arrington [facility] Start: 07-12-2021 End: 07-12-2021 Patient encounter procedure MD Shaikh Day Work Phone: [facility]-XRay [facility] Start: 06-15-2021 End: 06-15-2021 Discharged Recurring MD Shaikh Day Work Phone: [facility]-[place] [address] Start: 05-31-2021 End: 05-31-2021 ambulatory Susie Calvchetan Other [facility] Other Start: 05-31-2021 Postop follow up vis it related to original px Susie Calvey [facility] Start: 05-08-2021 End: 05-08-2021 ambulatory SHAIKH Be DAY Facility:[facility] Start: 05-03-2021 End: 05-03-2021 ambulatory Susiejennifer Arrington Other [facility] Other Start: 05-03-2021 Postop follow up vis it related to original px Susie Arrington [facility] Start: 03-30-2021 End: 03-31-2021 ambulatory SHAIKH Be DAY Facility: Start: 03-02-2021 End: 03-02-2021 ambulatory Denver Millernorah Other [facility] Other Start: 03-02-2021 Office outpatient visit 15 minutes Denver Juarez [facility] Vascular Surgery Start: 12-01-2020 Office outpatient visit 25 minutes Denver Juarez [facility] Surgery Start: 11-10-2020 Office outpatient visit 15 minutes Denver Larry [facility] Vascular Surgery Procedures Date Procedure Procedure Detail [...] Treatment Date Care Activity Detail Author Start: 11-18-2030 DTaP,Tdap and Td Vaccines (2 - Tdap) DTaP,Tdap and Td Vaccines (2 - Tdap) [facility] Start: 03-12-2023 End: 03-12-2023 Patient encounter procedure 03/12/2023 10:00 AM EST Office Visit [facility] [address] [place] [phone] Alan Elmore MD [address] [place] [address], [address] [place] [address] [facility] Start: 10-12-2022 COVID-19 Vaccine ( season) COVID-19 Vaccine () [facility] Start: 03-02-2022 Bacteria identified in Urine by Culture Urine Culture [facility] Start: 11-22-2021 Comprehensive metabolic 2000 panel - Serum or Plasma [facility] Start: 11-22-[address] [facility] Start: 11-22-2021 End: 11-22-2021 [facility] Start: 11-21-2021 Patient referral to dietitian 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 Start: 11-21-2021 Physical therapy procedure [facility] Start: 11-21-2021 Referral to occupational therapist [facility] Start: 11-21-2021 [facility] Start: 08-31-2021 Doppler ultrasonography of bilateral carotid arteries US carotid doppler BI [facility] Start: 08-31-2021 US.doppler Carotid arteries - bilateral [facility] Work Phone: Start: 2013 Fall Risk Screening Fall Risk Screening [facility] Start: 1998 Administration of varicella zoster vaccine Zoster (Shingles) Vaccine (1 of 2) [facility] Start: 1966 Adult BMI Screening Adult BMI Screening [facility] Start: 1960 Depression Screening Depression Screening [facility] Start: 1960 Tobacco Screening Tobacco Screening [facility] Start: 1948 Medicare Annual Wellness Visit Medicare Annual Wellness Visit [facility] Bacteria identified in Blood by Culture [facility] Bacteria identified in Urine by Culture [facility] Blood culture for bacteria, including anaerobic screen Blood Culture [facility] Patient Education Bradycardia (DC) [facility] Work Phone: Patient referral [facility] Work Phone: Urine culture Urine Culture [facility] Immunizations Immunization Date Immunization Notes Care Provider Fa cility 06-11-2020 COVID-19 Ad26.COV2.S (Clarence) MD Shaikh Day Work Phone: [facility] Payers Date Payer Category Payer Medicare ANTHEM MEDICARE [facility] MEDICARE ADVANTAGE [id number] 2018-Present [phone] [address] [place] [address] [id number] 2008 Unknown [id number] 1959 Medicare [id number] [id number] 1959 Self-pay [id number] 1948 Unknown [id number] 2.840.1.075770.3.579.2.159 1948 Unknown [id number] 2..840.1.733689.3.579.2.593 1948 Unknown [id number] 2.16.840.1.645058.3.579.2.593 1948 Unknown [id number] 2.16.840.1.218143.3.579.2.593 1948 Unknown [id number] 2.16840.1.110281.3.579.2.593 1948 Unknown [id number] 2.16.840.1.521734.3.579.2.593 1948 Unknown [id number] 2.16.840.1.581565.3.579.2.593 1948 Unknown [id number] 2.16.840.1.382776.3.579.2.593 1948 Unknown [id number] 2.16.840.1.215067.3.579.2.593 1948 Unknown [id number] 2.16.840.1.378815.3.579.2.593 1948 Unknown [id number] 2.16.840.1.400666.3.579.2.593 1948 Unknown [id number] 2.16840.1.917964.3.579.2.593 1948 Unknown [id number] 2.16840.1.390648.3.579.2.593 1948 Unknown [id number] 2.16840.1.613947.3.579.2.593 1948 Unknown [id number] 2.16840.1.855812.3.579.2.593 1948 Unknown [id number] 2.16840.1.965975.3.579.2.593 1948 Unknown [id number] 2.16840.1.700515.3.579.2.593 1948 Unknown [id number] 2.16.840.1.042810.3.579.2.593 1948 Unknown [id number] 2.16.840.1.228191.3.579.2.593 1948 Unknown [id number] 2.16.840.1.160467.3.579.2.1286 1948 Unknown [id number] 2.16.840.1.051599.3.579.2.1259 Medicare Medicare [id number] Medicare Medicare [id number] Unknown [id number] 2.16.840.1.787558.3.579.2.531 Unknown [id number] 2.16.840.1.924891.3.579.2.531 Unknown [id number] 2.16.840.1.409748.3.579.2.531 Social History Date Type Detail Facility Start: 04-05-2018 End: 02-23-2020 [facility] Start: 07-22-2018 End: 03-31-2021 Tobacco smoking status NHIS Ex-smoker (finding) [facility] Start: 1950 Sex Assigned At Female F [facility] History of tobacco use Current smoker [facility] [employer] [facility] History of tobacco use Cigarette Smoker P [facility] Start: 07-22-2018 End: 02-23-2020 Cigarettes smoked current (pack per day) - Reported 1 [employer] Start: 07-22-2018 Tobacco use and exposure Smoke less tobacco non-user [facility] [employer] [facility] Start: 08-25-2018 Alcohol intake Current non-dr can filler of alcohol (finding) [facility] Frequency of Alcohol Consumption Never [facility] [employer] [facility] Start: 1950 Sex Assigned At Not on file P [employer] [facility] Medical Equipment Procedure Code Equipment Code Equipment Origin al Text Equipment Identifier Dates ORIF, fracture, wrist Orthopaedic fixation plate, non-bioabsorbable, sterile ()[id number] FDA Start: 03-31-2021 ORIF, fracture, wrist Orthopaedic bone screw, non-bioabsorbable, non-sterile ()[id number] FDA Start: 03-31-2021 ORIF, fracture, wrist Orthopaedic bone screw, non-bioabsorbable, non-sterile ()[id number] FDA Start: 03-31-2021 ORIF, fracture, wrist Orthopaedic bone screw, non-bioabsorbable, non-sterile ()[id number] FDA Start: 03-31-2021 ORIF, fracture, wrist Orthopaedic bone screw, non-bioabsorbable, non-sterile ()[id number] FDA Start: 03-31-2021 Endarterectomy, carotid Cardiovascular patch, animal-derived ()[id number] FDA Start: 04-06-2020 Sys Crd Rvl Linq Rpl [id number] - [id number] - [id number] Start: 04-08-2018 Goals Date Patient Goal Desired Activity /State Personal health goal Comment on above: Formatting of this n ote might be different from the original. Evaluation of progress towards goal: return home with self care and family support Personal health goal Comment on above: Formatting of this n ote might be different from the original. Evaluation of progress towards goal: Return home with self care and family support and resume outpatient therapy. Functional Status Date Assessment Result Facility 11-22-2021 Functional status Patient at Baseline [facility] Work Phone: 11-21-2021 Functional status Patient Not at Baseline [facility] Work Phone: Mental Status Date Assessment Result Facility 11-22-2021 Cognitive function Cognitive Sta tus Patient at Baseline [facility] Work Phone: 11-21-2021 Cognitive function Cognitive Sta tus Patient Not at Baseline [facility] Work Phone: Clinical Notes 11-10-2020 to 02-26-2023 Telephone Encounter - Charlette Burr - 01/24/2023 12:46 PM ESTTelephone Encounter - Joie Leyva RN - 01/24/2023 12:46 PM ESTTelephone Encounter - Ginna Pak CMA - 01/24/2023 12:46 PM EST Note Date & Type Note Facility 02-26-2023 Note SARAVIA and leg edema- r ecommended to increase lasix to 40 mg daily for diuresis and repeat BMP next week [facility] 02-13-2023 Note Lipid abnormalities are well controlled, continue crestor [facility] 02-13-2023 Note Hypertension is elev ated, currently will increase lasix to daily and increase potassium, Repeat BMP in 1 week Continue norvasc 2.5 mg Renal function normal [facility] 02-13-2023 Note Coronary artery dise ase is stable Continue GDMT- ASA, crestor and toprol continue risk factor modifications- heart healthy diet, regular exercise as tolerated and continue all medications. [facility] 02-13-2023 Note F/U with neuro [facility] 02-13-2023 Note [facility] CARDIOLOGY PROGR ESS NOTE [...] stroke on 10/20/2022 and was seen in [facility] ED. She is having trouble getting [...] to get appointment with Neuro/stroke service at [facility] and with her PCP DR Posey. Review [...] mg tablet Take 150 mg by mouth. lisinopriL-hydrochlorothiazide 10-12.5 mg tablet Take 1 tablet every day by oral route for 90 days. No current facility-administered medications on file prior [...] normal. Palpations: Abdomen is soft. Musculoskeletal: General: ambulates with cane, unsteady gait Right lower le+ edema. Left lower le+edema. Skin: General: Skin is warm and dry. Capillary Refill: Capillary refill takes less than 2 seconds. Neurological: General: intermittent aphasia Mental Status: She is alert and oriented to person, place, and time. Psychiatric: Mood and Affect: Mood nor (more content not included)... [facility] 02-13-2023 Note Patient here for 6 m o follow up CAD, hypertension, and carotid artery stenosis. She states she tries to take her lasix every other day. C/o pissing herself at night and smelly urine . Says she had another stroke on 10/20/2022 and was seen in [facility] ED. She is having trouble getting [...] All other systems reviewed and are negative. [facility] 01-24-2023 Miscellaneous Notes Patient called to see if we received paperwork that was sent from her PCP in July. Caller states she has had a new stroke and needs to be seen. Patient states she has been having headaches and dizziness. Please advise [phone] Patient last seen in 2018. No paperwork has been completed or received. Please see where patient had recent stroke and gather records. Called pt. She state Dr. Hartley sent the paperwork back in November 2022. MRI was done at [place] very recently. [employer] will be requesting image and any office visit notes related to neurology. Pt seems to be very frustrated by the lack of communication. [employer] informed that we will reach out to [facility] to gather as much information. [employer] must note that the quality of the call was very poor and it was hard to communicate with the patient. Asked if she could move to somewhere with a better concierge receptionist, but even then the quality did not improve. At the end of the call, she showed more frustration which publications writer could not understand and she hung up. Called [facility] radiology to confirm if she has gotten any MRI in November. It was ordered by one of the hospitalists. A spray technician could not confirm who ordered the imaging, but confirmed that she pushed over the imaging through PACs and reports via fax. Currently waiting for response. Faxed request for hospitalization records on nov 2022. Currently waiting for response. Called and scheduled an appointment on 03/12/23 at 10:00 AM documented in this encounter [facility] 01-24-2023 Telephone encounter Note Patient called to see if we received paperwork that was sent from her PCP in July. Caller states she has had a new stroke and needs to be seen. Patient states she has been having headaches and dizziness. Please advise [phone] [facility] 01-24-2023 Telephone encounter Note Patient last seen in 2019. No paperwork has been completed or received. Please see where patient had recent stroke and gather records. [facility] 01-24-2023 Telephone encounter Note Called pt. She state Dr. Hartley sent the paperwork back in November 2022. MRI was done at [place] very recently. [employer] will be requesting image and any office visit notes related to neurology. Pt seems to be very frustrated by the lack of communication. [employer] informed that we will reach out to [place] to gather as much information. [employer] must note that the quality of the call was very poor and it was hard to communicate with the patient. Asked if she could move to somewhere with a better concierge receptionist, but even then the quality did not improve. At the end of the call, she showed more frustration which publications writer could not understand and she hung up. [facility] 01-24-2023 Telephone encounter Note Called [facility] radiology to confirm if she has gotten any MRI in November. It was ordered by one of the hospitalists. A spray technician could not confirm who ordered the imaging, but confirmed that she pushed over the imaging through PACs and reports via fax. Currently waiting for response. [facility] 01-24-2023 Telephone encounter Note Faxed request for hospitalization records on nov 2022. Currently waiting for response. [facility] 01-24-2023 Telephone encounter Note Called and scheduled an appointment on 03/12/23 at 10:00 AM [facility] 10-16-2022 Evaluation note Encounter Date Diagnosis Assessment [...] with chronic urinary symptoms. Patient verbalized understanding. [facility] Other 07-18-2023 NoteUT Cardiology [facility] Subjective Ozzie Gifford is a 72 [...] , Disp: , Rfl: (more content not included)...[facility]02-22-2023 Evaluation note* Encounter Date Diagnosis Assessment Notes [...] 1 year with repeat studies for surveillance. [facility] Other 01-23-2023 NoteHeart rate stable- 69 bpm Currently remains on toprol 25 mg daily. Denied lightheadedness/dizziness or [facility] NoteF/U with vascular surgery for monitoringUn[facility]01-23-2023 NoteWill start imdur 30 mg daily, d/w pt about headache as side effect and this should resolve after some time of taking imdur- if H/a does not resolve then we will stop medication. D/w pt that this may lower her b/p and to call office for any concerns.[facility]01-23-2023 NoteEvaluated by Vein specialist- Dr Walsh, Dr Juarez- vascular surgery Recommended lymphedema clinic.[facility]01-23-2023 Note [facility] CARDIOLOGY PROGRESS NOTE HPI: Ozzie [...] not to see her vascular surgeon in [place] yet, to see the vein specialist first. [...] syncope RTC 3-6 months or earlier if neededUnThe [facility] Hospital01-23-2023 NotePatient here for follow up echo. She's down 8# from apt last month. She had B/L LE venous reflux study 2 weeks ago, and states that physician told me it was my heart . She is referring to her LE edema. She said PCP advised her not to see her vascular surgeon in [place] yet, to see the vein specialist first. Review of Systems Constitutional: Positive for weight loss. Cardiovascular: Positive for leg swelling. Skin: Positive for color change. All other systems reviewed and are negative.[facility] 03-05-2022 Notecontinue crestor 10 mgUnThe [facility] 03-05-2022 NoteHypertension is 144/86- at home she states b/p is typicaly 130/80 or less Will add imdur to regime for angina Continue toprol, lasixUnThe [facility]01-23-2023 NoteContinue risk factor modifications- heart healthy diet, regular exercise as tolerated and continue all medications. Cpntinue GDMT- ASA, crestor, toprol, will start imdur.[facility]10-18-2022 NoteED Procedure Charges Entered On: 11/28/2021 17:45 EDT Performed On: 11/28/2021 17:44 EDT by Heena Crawford [employer] ([id number]) Sim Rep Sca to 2.5 [id number] : 1 Heena Crawford - 11/28/2021 17:44 [facility]10-14-2022 NoteED Nursing Discharge Summary Entered On: 11/24/2021 17:29 EDT Performed On: 11/24/2021 17:29 EDT by Jennifer Mccarthy RN GA Information [id number] ED IV's : No IV ED IV Site Assessment : No IV ED Vitals Completed : Yes ED Final Assessment Completed : Yes ED Progress Note Completed : Yes Complete all PRN/Pain response forms? : Yes ED Disassociate Patient from Monitor : N/A Updated Depart Time : Yes ED Belongings sent w patient [id number] : Not applicable Jennifer Mccarthy RN - [...] Jennifer Mccarthy RN - 11/24/2021 17:29 EDT [facility]10-14-2022 NotePROCEDURE: CT CHEST WITHOUT IV CONTRAST HISTORY: WHAT SYMPTOMS ARE YOU EXPERIENCING? - PT FELL AND HIT HEAD, PAIN, HX OF STROKE 2019, SOB, CHEST PAIN PAIN COMPARISON: None TECHNIQUE: Multiple contiguous axial CT images of the chest were obtained without the administration of intravenous contrast. Sagittal and coronal reconstructions were performed. [facility] CT [facility] use dose modulation, iterative reconstruction, and/or [...] in diameter. See below for follow-up recommendations. [facility] MANDATED QUALITY DATA - FOLLOW-UP IMAGING [...] known risk factors. * Reference: Radiology. 2017 Aug; 241(1):228-243, Jennifer Guidelines for Management of Incidental Pulmonary Nodules on CT Electronically signed by: Ismael Aguilar MD 11/24/2021 1:28 PM CDT Technologist: WENDY CHAVEZ Dictated By: ISMAEL AGUILAR MD Signed By: ISMAEL AGUILAR MD Signed Out: 11/24/21 14:28:[address] [place], [place] [id number] Consult note Author Shavon Leos [facility] November 22, 2021 11:54am Note Date/Time November 22, 2021 1 1:45am [facility] [address] [place] [address] Cardiology Consult Note Signed Patient: Ozzie Gifford MR#: [id number] : 1950 Acct:[id number] Age/Sex: 71 / F Adm Date: 2 Loc: Room: [address] [place] [address] Type: ADM IN Attending Dr: Anna Valladares [...] past she underwent work-up by cardiology in [place]. 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 November 22, 2021 8:17am Note Date/Time November 21, 2021 1 2:10pm [facility] [address] [place] [address] Hospitalist Progress Note Signed Patient: Ozzie Gifford MR#: [id number] : 1950 Acct:[id number] Age/Sex: 71 / F Adm Date: 2 Loc: 3T Room: [address] [place] [address] Type: ADM IN Attending Dr: Anna Valladares MD Copies to: ~ Date of Service: 11/21/2021 Subjective Subjective Narrative: Patient seen and examined. cartpearl, currently still roomed in down in ER awaiting nursing floor availability. She offers no complaint. Keeps talkingof her daughter in [place] dying from cancer currently. thinks this is [...] bradycardia 3. Hx TBI/ dystonia Documented By: ANGELA Machado 2 1210 Signed By: <Electronically signed by ANP-LEONEL Rodriguez> 11/21/21 1424 <Electronically signed by Anna Valladares MD> 11/22/21 0817 [facility] Work Phone: 1(303) 932-371610-11-2022 History and physical note Author Ashleigh Rashid [facility] November 21, 2021 6:39am Note Date/Time November 21, 2021 6 :39am [facility] [address] [place] [address] Hospitalist H&P Signed Patient: Ozzie Gifford MR#: [id number] : 1950 Acct:[id number] Age/Sex: 71 / F Adm Date: 2 Loc: ER Room: Type: [facility] ER Attending Dr: Copies to: MD [...] injury, UA was concerning for UTI, on myencounter the patient was in bed she is [...] of appendectomy History of cardiac catheterization 2020 [facility] History of knee replacement right knee replacement [...] mg tablet 1 tab PO QAM htn 02/13/20 [History Confirmed 03/31/21] metoprolol succinate 25 mg [...] % (Auto) 20.4 % (.) 11/21/21 04:12 Dupage % (Auto) 9.9 % (.) 11/21/21 04:12 Eos % (Auto) 3.7 % (.) 11/21/21 04:12 Baso % (Auto) 0.8 % (.) 11/21/21 04:12 Neut # (Auto) 3.5 x10E3/uL (1.8-7.7) 11/21/21 04:12 Lymph # (Auto) 1.1 x10E3/uL (1.00-4.8) 11/21/21 04:12 [place] # (Auto) 0.5 x10E3/uL (0.0-0.8) 11/21/21 04:12 [...] pH 5.5 (5.0-9.0) 11/21/21 04:20 Ur Specific [place] 1.010 (1.001-1.030) 11/21/21 04:20 Urine Protein Negative [...] Lovenox Documented By: Ashleigh Cruz MD 2 1122 Signed By: <Electronically signed by Ashleigh Cruz MD> 11/21/21 0639 [facility] Work Phone: [phone]) 620-530310-11-2022 History and physical note Author Ashleigh Rashid [facility] November 21, 2021 6:39am Note Date/Time November 21, 2021 6 :39am [facility] [address] [place] [address] Hospitalist H&P Signed Patient: Ozzie Gifford MR#: [id number] : 1950 Acct:[id number] Age/Sex: 71 / F Adm Date: 2 Loc: ER Room: Type: [facility] ER Attending Dr: Copies to: MD [...] of appendectomy History of cardiac catheterization 2020 [facility] History of knee replacement right knee replacement [...] % (Auto) 20.4 % (.) 11/21/21 04:12 [place] % (Auto) 9.9 % (.) 11/21/21 04:12 Eos % (Auto) 3.7 % (.) 11/21/21 04:12 Baso % (Auto) 0.8 % (.) 11/21/21 04:12 Neut # (Auto) 3.5 x10E3/uL (1.8-7.7) 11/21/21 04:12 Lymph # (Auto) 1.1 x10E3/uL (1.00-4.8) 11/21/21 04:12 [place] # (Auto) 0.5 x10E3/uL (0.0-0.8) 11/21/21 04:12 [...] pH 5.5 (5.0-9.0) 11/21/21 04:20 Ur Specific [place] 1.010 (1.001-1.030) 11/21/21 04:20 Urine Protein Negative [...] signed by Ashleigh Cruz MD> 11/21/21 0639 [facility] Work Phone: 1(830) 265-123008-17-2022 Evaluation note* Encounter Date Diagnosis Assessment Notes [...] studies. All of her questions were addressed. [facility] Other 08-12-2022 Evaluation note* Encounter Date Diagnosis [...] Advised that patient may continue to use ryyu-vll-zjphiyc medications as needed for supportive treatment. Discussed that it could be possible that her nausea/vomiting/diar debbi could still be some residual side effects from the Paxlovid medication. At this time she should not take anymore that. She may follow-up with family doctor as scheduled on Saturday if she has more concerns. [facility] Other 08-10-2022 Evaluation note* Encounter Date Diagnosis [...] new questions or concerns at this time. [facility] Other 06-22-2022 Evaluation note* Encounter Date Diagnosis [...] Other specified postprocedural states (ICD-10 - Z98.890) [facility] Other 06-01-2022 Evaluation note* Encounter Date Diagnosis [...] Other specified postprocedural states (ICD-10 - Z98.890) [facility] Other 04-20-2022 Evaluation note* Encounter Date Diagnosis [...] Progress activity as tolerated. Call with questions/concerns. [facility] Other 03-23-2022 Evaluation note* Encounter Date Diagnosis Assessment Notes Treatment Notes Treatment Clinical Notes Apr, Other specified postprocedural states (ICD-10 - Z98.890) Radiographs reviewed with patient. Patient is progressing well from surgery. Continue occupational therapy exercises. Call with questions/concerns . Apr, Other fractures of lower end of left radius, subsequent encounter for closed fracture with routine healing (ICD-10 - S52.592D) [facility] Other 01-20-2022 Evaluation note* Encounter Date Diagnosis [...] or reaches 80% or she develops symptoms [facility] Other 10-21-2021 Evaluation note* Encounter Date Diagnosis [...] suggested ice and elevation with compression stockings. [facility] Other 09-30-2021 Evaluation note* Encounter Date Diagnosis [...] classify this is asymptomatic recurrent stenoses currently. [facility] Other Evaluation noteNo assessment information available [facility] Work Phone: Evaluation noteNo InformationNort Textádo Other Evaluation note* Diagnosis Onset Date Resolution Status JASEN (acute kidney injury) ac [place] AMS (altered mental status) acute Impaired mobility and activities of daily living acute Symptomatic bradycardia acut e [facility] Work Phone: Evaluation note* Diagnosis Onset Date Resolution Status JASEN (acute kidney injury) ac [place] AMS (altered mental status) acute Impaired mobility and activities of daily living acute Symptomatic bradycardia acut e H/O traumatic brain injury c hronic HLD (hyperlipidemia) chronic HTN, goal below 140/90 chron ic [facility] Work Phone: Hisymym general Narrative - Reported* Type Description Date [...] Hospitalization History childbirth Hospitalization History X2 strokes 2019 [facility] Other Hisjmvw general Narrative - Reported* Type Description Date [...] History childbirth Hospitalization History X2 strokes 2018 [facility] Other Hospital Discharge instructions Additional Instructions Please call and schedule an appointment with your established Arts Education Teacher. We attempted to make this appointment for you but the office was currently unavailable.[facility] Work Phone: InstructionsNot on filedocumented in this encounter [employer] Summary Purpose Family History No Family History [...] Date/ Time Advance Directives No October 8:28am Latest Code Status on File Code Status Date Activated Date Inactivated Comments Full Code 07/22/2018 6:33 AM 07/24/2018 4:48 PM Code Status History Code Status Date Activated Date Inactivated Comments Full Code 04/05/2018 3:35 PM 04/10/2018 5:18 PM Full Code 04/05/2018 10:14 AM 04/05/2018 3:35 PM Chief Complaint and Reason for Visit Chief [...] and content) DATE CREATED AUTHOR 03/09/2020 [facility] DATE CREATED AUTHOR AUTHOR'S ORGANIZ ATION 12/03/2021 [facility] DATE CREATED AUTHOR AUTHOR'S ORGANIZ ATION 02/28/2022 [facility] DATE CREATED AUTHOR AUTHOR'S ORGANIZ ATION 01/22/2023 [facility] DATE CREATED AUTHOR AUTHOR'S ORGANIZ ATION 02/17/2023 [facility] DATE CREATED AUTHOR AUTHOR'S ORGANIZ ATION 02/21/2023 [facility] EPIC DATE CREATED AUTHOR AUTHOR'S ORGANIZ ATION 02/28/2023 [facility] REASON FOR VISIT (unrecogniz ed section and content) Reason Onset Date Comments paperwork 01/24/2023 Care Teams (unrecognized sec tion and content) Team Status: Inactive Member Role Status Reid Day MD Primary Care Provider Active Denver Juarez MD Attending Provider Active Team Status: Inactive Member Role Status Reid Day MD Primary Care Provider Active Susie Arrington MD Attending Provider Active Team Status: Active Member Role Status Ried Hartley MD Primary Care Provider Active Shaikh Barb MD Attending Provider Active Team Status: Active Member Role Status Reid Day MD Primary Care Provider Active Team Status: Active Member Role Status Reid Day MD Primary Care Provider Active Rafiq Bahena DO Emergency Provider Active Ashleigh Cruz MD Admit Provider, Attending Vipul hawkins Active Shira Castañeda RN Other Provider Active Masood Mendoza DO Other Provider Active Betito Arellano MD Other Provider Active Aneesh Zendejas MD Other Provider Active Shavon Leos MD Other Provider Active Brayan Ribera MD Other Provider Active Patience Brown APRN Other Provider Active Shefali Garibay MD Other Provider Active Vannessa Nava MD Other Provider Active Alissa Young MD Other Provider Active Maddie Garcia , [facility] Other Provider Active Team Status: Inactive Member Role Status Dates Shaikh Barb MD Primary Care Provider Active Rafiq Bahena DO Emergency Provider Active Ashleigh Cruz MD Admit Provider Active Anna Valladares MD Attending Provider Active Team Status: Inactive Member Role Status Dates Gerry Hartley MD Primary Care Provider Active Shaikh Barb MD Attending Provider Active Team Status: Inactive Member Role Status Dates Shaikh Barb MD Primary Care Provider Active Earline Harris APRN Attending Provider Active 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 [employer] provides no warranty or guarantee of the accuracy or completeness of information in this document.
--- NOTE | 2023-03-01 08:50 | CA_ITS ---
Patient Name: FITZ GIFFORD MR#: [id number] : 1950 Exam Date: 03/01/2023 Ordering Doctor: DIANA FONSECA ECHOCARDIOGRAM REPORT PROCEDURE: CA ECHO W/ CON INDICATIONS: CVA, hypertension, loop recorder, dyspnea on exertion, edema COMPARISON: None. DESCRIPTION: COMPLETE ECHOCARDIOGRAM Real-time transthoracic echocardiography with 2D, M-mode, spectral and color flow Doppler performed. QUALITY: Technical quality was good. 61 , 134#, BSA 1.59 m2 LEFT VENTRICLE: Normal chamber size. Normal left ventricular wall thickness. Normal systolic function. LV EF: Normal left ventricular ejection fraction, (65%). DIASTOLIC: Normal diastolic function. ATRIAL SEPTUM: Intact atrial septum. Agitated saline contrast does not reveal an intra-cardiac shunt. LEFT ATRIUM: Normal chamber size. RIGHT ATRIUM: Normal chamber size. RIGHT VENTRICLE: Normal chamber size. Normal right ventricular systolic function. TRICUSPID VALVE: Normal mobility and thickness. No stenosis with trivial regurgitation. No evidence of pulmonary hypertension. RVSP 31 mmHg MITRAL VALVE: Mildly thickened with normal mobility. No evidence of mitral valve stenosis. Mild mitral annular calcification. Trivial mitral regurgitation. AORTIC VALVE: Normal trileaflet appearance. Thickened aortic valve. Normal leaflet mobility. No evidence of aortic valve stenosis. No aortic regurgitation. AORTIC ROOT: PULMONIC VALVE: Not well visualized. No stenosis. No regurgitation. PERICARDIUM: No evidence of pericardial effusion. IVC: Collapses with inspirations. IVC is normal in size. PLEURA: CONCLUSION: 1. Normal ventricular function. LVEF is 65%. 2. No significant valvular dysfunction. 3. Normal right-sided pressures. 4. No evidence of intracardiac shunt by agitated saline injections. Adult Echocardiography Procedure Report Left Ventricle LVEDD (3.7 - 5.6 cm): 3.37 cm LVESD (2.2 - 4.0 cm): 2.41 cm LVIVS thickness (0.6 - 1.2 cm): 0.92 cm LVPW thickness (0.5 - 1.0 cm): 0.81 cm e': 0.08 m/s E - e': 7.85 LVOT Max Gradient: 3.33 mm[Hg] LVOT Area (cm2): 0.91 m/s Peak Velocity (LVOT): 0.91 m/s Mean Velocity (LVOT): 0.59 m/s LVOT Diameter 1.82 cm Left Atrium LA Volume Index (2D A2C): 29.34 ml/m2 Left Atrium Systolic Dimension: 2.73 cm Mitral Valve MV E to A Ratio: 0.75 Mitral Valve A-Wave Peak Velocity: 0.80 m/s Mitral Valve E-Wave Peak Velocity: 0.60 m/s Right Ventricle Aorta AO Root Diam: 2.17 cm Aortic Valve AoV Area (Peak Shen): 2.58 cm2, 2.58 cm2 AoV Area (VTI): 2.80 cm2, 2.80 cm2 Peak Velocity(Antegrade Flow): 0.92 m/s Peak Gradient(Antegrade Flow): 3.37 mm[Hg] Mean Velocity(Antegrade Flow): 0.69 m/s Mean Gradient(Antegrade Flow): 2.03 mm[Hg] Velocity Time Integral: 24.83 cm Tricuspid Valve Peak Velocity (Regurgitant Flow): 2.66 m/s, 2.68 m/s Pulmonic Valve Peak Velocity: 0.77 m/s Peak Gradient: 2.38 mm[Hg], 2.38 mm[Hg] Right Atrium Right Atrium Systolic Pressure: 29.95 ml, 29.95 ml Dictated by: Ruben Carrillo M.D. on 03/01/2023 at 18:22 Approved by: Ruben Carrillo M.D. on 03/01/2023 at 18:27
== END 2023-03-01 07:12 | disposition home or self-care (01) ==
LOC: CARD 07:12
PROVIDERS: PCP Internal Medicine; Visit Provider Nurse Practitioner
DX: I63.9 Cerebral infarction, unspecified (principal); I10 Essential (primary) hypertension; R06.09 Other forms of dyspnea; R60.0 Localized edema
CPT/HCPCS: C8929

== ENCOUNTER 2023-03-01 08:44 | Observation (INO) | payer MEDICARE, SELFPAY ==
[2023-03-01] VITALS (21 sets, daily range): BP systolic 102–174; BP diastolic 56–82; PULSE 52–77; RESP 10–23; TEMP 36.4–36.6; O2SAT 82–100; BMI 28.3; BMI 25.8
--- OUTSIDE RECORDS SUMMARY | 2023-03-01 08:58 | XMS_ITS | CCD ---
Author Name Unknown Address [address] [place] [address] Organization [facility] Care Team Providers Care Domestic Travel Consultant Name Role Phone Denver Juarez Unavailable [phone] Susie Arrington Unavailable MD Eddy Day Primary Care Provider MD Susie Arrington R Attending Provider MD Gerry Hartley Primary Care Provider MD Eddy Day Attending Provider MD Denver Juarez Attending Provider Ilda Das Unavailable MD Eddy Day Primary Care Provider MD Gerry Hartley Primary Care Provider MD Eddy Day Attending Provider DO Rafiq Bahena Emergency Provider MD Ashleigh Card Admit Provider MD Ashleigh Card Attending Provider LESTER Castañeda Other Provider Unavailable DO Masood Mendoza Other Provider MD Betito Arellano Other Provider [phone] MD Aneesh Zendejas Other Provider [phone] MD Shavon Leos Other Provider [phone] MD Brayan Ribera Other Provider CÉSAR Arenas Other Provider MD Shefali Garibay Other Provider MD Vannessa Nava Other Provider MD Alissa Young Other Provider Jose [facility] Maddie Pietro Other Provider MD Anna Valladares Attending Provider NO FAMILY PHYSICIAN, 837 Primary Care Unavail able MIKE VIDES, - LUIS Attending Unavaila MD Eddy Swenson Primary Care Provider DO Rafiq Bahena Emergency Provider Al MD Dagoberto Roche Admit Provider MD Anna Valladares Attending Provider MD Gerry Hartley Primary Care Provider MD Eddy Day Attending Provider [phone] Admitting Unavailable [address] Attending [...] DE OLIVEIRA H Primary Care Unavailable ALONSO JACBOS Admitting Unavailable ALONSO JACOBS Attending Unavailable JEAN-PIERRE GIRALDO Consulting Unavailable Natacha Cerna Consulting Unavailable ALONSO JACOBS Consulting Unavailable MD Eddy Day Primary Care Provider [phone] CÉSAR Harris Attending Provider [phone] Earline Harris Unavailable Kori Temple Unavailable Famasoodwad, [...] (14 sources) Penicillin G Drug Allergy Unknown Perceptis Other (9 sources) Penicillins; 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: [Penicillins] Allergy to substance 8 [facility] (1 source) Penicillin Drug Allergy 3 [facility] Repository Medications Current Medications Medication Drug Class(es) [...] 2018 9:29am take [address] 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 aspirin; 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: [SUPERINTENDENT TESTS CURRENT USE OF ASPIRIN] Onset: 2 Episodic Other aftercare (1 source) Other longterm (current) drug therapy; 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: [OTH SUPERINTENDENT TESTS CURRENT DRUG THERAPY] Onset: 2 Episodic Other aftercare (1 source) Encounter for follow-up examination after completed treatment for conditions other than malignant neoplasm; 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: [ENC F/U EX AFTR CMPL TX NOT MAL SU] Onset: 2 Episodic Other aftercare (1 source) assisted (current) use of antithrombotics/antipl atelets; 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: [[facility] 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/ANTIPLATL ETS] Onset: 2 Episodic Other circulatory [...] GO DE K TO 20 MG Normal [facility] 37on 02-13-2023 37 Decrease amount of fluids your drinking to about 1.5 liters/day Take lasix 40 mg daily and increase potassium to 20 meq daily Have labs drawn in 1 week Call for appointment with neuro Normal [facility] Office Visiton 02-13-2023 Follow-up visit [id number] Ozzie Gifford 1950 F Date Provider Department Center 02/13/2023 MEGHANN NEGRETE CARD [facility] Family History Problem Relation Age of Onset Hypertension Mother Hypertension Father Heart attack Brother Family Status - Relation Status Age at Mother Father Brother Level of Service:21970 [place] OFFICE/OUTPATIENT ESTABLISHED MOD MDM 30 MIN Normal [facility] Urinalysis - AUTOMATEDon Appearance (U) cloudy Bala[employer] Other Bilirubin Ql (U) Negative OpenDNS Other Color (U) yellow Perceptis Other Glucose Ql (U) Negative [employer] Other Hemoglobin Ql (U) Negative Easy-Point Other Ketones Ql (U) Negative [employer] Other Leukocyte esterase Test strip Ql (U) Negative Perceptis Other Nitrite Ql (U) Negative [employer] Other pH (U) 6.0 [pH] Perceptis Other Protein Ql (U) Negative [employer] Other Specific gravity (U) [Rel density] 1.030 Perceptis Other Urobilinogen (U) [Mass/Vol] 1.0 mg/dL Perceptis Other Urinalysis - AUTOMATED No rth [employer] Other Office Visiton 08-28-2022 Follow-up visit [id number] Ozzie Gifford 1950 F Date Provider Department Center 08/28/2022 TaeMONIEJVNICOLAS HUIZAR CARD [facility] Family History Problem Relation Age of Onset Hypertension Mother Hypertension Father Heart attack Brother Family Status - Relation Status Age at Mother Father Brother Level of Service:62832 [place] OFFICE/OUTPATIENT ESTABLISHED MOD MDM 30-39 MIN Reason for Visit and Comments: Follow-up [606487] - 6 month follow up Normal [facility] US carotid doppler BIon 03-15 US carotid doppler BI [facility] [place] [address] Ultrasound Report Signed Patient: Ozzie Gifford MR#: [id number] : 1950 Acct:[id number] Age/Sex: 71 / F ADM Date: 04/04/22 Loc: [facility] Room: Type: [facility] Attending Dr: Denver Juarez MD Ordering [...] Denver Juarez MD04/04/2022 3:28 PM Dictation Location: [place] [address] Tech: Selin Oglesby Transcribed By: [facility] 04/04/22 1528 Dictated By: Denver Juarez MD 04/04/22 1528 Signed By: 04/04/22 1528 [facility] 37on 03-05-2022 37 Start Isosorbide/Imdur 30 mg daily in the morning- for chest pain Call office for any concerns, worsening chest pain, worsening headache, lightheadedness/dizzi ness. Normal [facility] Office Visiton 03-05-2022 Follow-up visit [id number] Ozzie Gifford 1950 F Date Provider Department Center 03/05/2022 Niki-MEGHANN FONSECA CARD [facility] Family History Problem Relation Age of Onset Hypertension Mother Hypertension Father Heart attack Brother Family Status - Relation Status Age at Mother Father Brother Level of Service:99876 [place] OFFICE/OUTPATIENT ESTABLISHED MOD MDM 30-39 MIN Normal [facility] Urine Cultureon 03-02-2022 Bacteria identified Cx Nom (U) Reason for Exam Dysuria Urine ORGANISM: Escherichia coli (O:ESCCOL) [place] Count 20,000 Aerobic QUINTIN Charge (NMIC56) ---- [...] RESISTANT TO ALL B-LACTAM DRUGS. PERFORMED BY: [place] [id number] PATHOLOGIST ASSISTANT PROFESSOR IN FAMILY STUDIES YOCASTA BYRNE M.D. Normal [facility] Comment on above: Performed By: #### C UU #### [address] ECHOCARDIO M/2D COMPLETEon 0 02-21-2022 ECHOCARDIO M/2D COMPLETE Patient: OZZIE GIFFORD Exam Date: 02/21/2022 : 1950 Gender:F Ordering : MEGHANN FONSECA Admission #: [id number] Family : SHAIKH Korina DAY . Order #: [id number] CLICK HERE TO VIEW EXAM ECHOCARDIOGRAM REPORT [...] Doty M.D. on 02/22/2022 at 13:00 Normal [facility] VC COMP CONSULTATIONon 02-20 VC COMP CONSULTATION Patient: OZZIE GIFFORDDeonte Exam Date: 02/20/2022 : 1950 Gender:F Ordering : SHAIKH Korina DAY . Admission #: [id number] Family : Order #: [id number] CLICK HERE TO VIEW EXAM RADIOLOGY REPORT [...] her congestive heart disease up with her suction worker in the next 2 weeks. The patient [...] Walsh MD on 02/20/2022 at 11:35 Normal [facility] VC VENOUS REFLUX IAN LMTon 0 02-20-2022 VC VENOUS REFLUX IAN LMT Patient: OZZIE GIFFORD Exam Date: 02/20/2022 : 1950 Gender:F Ordering : SHAIKH Korina DAY . Admission #: [id number] Family : DR NATACHA WALSH M.D. Order #: [id number] CLICK HERE TO VIEW EXAM RADIOLOGY REPORT [...] chronic thrombus visualized Compressibility: Normal Flow: Normal Agricultural Equipment Operator: Dist/med calf 2.5mm with 0s reflux. Mid/med [...] Walsh MD on 02/20/2022 at 10:30 Normal [facility] US JANETTE DOP LEG LTon 02-01-20 22 [...] by: INDRA LOZADA Date: 2022-01-31 18:39 Normal [facility] BNPon 01-22-2022 Natriuretic peptide B (Bld) [Mass/Vol] 552.0 pg/mL Normal <=900.0 [facility] Comment on above: Performed By: #### E RUR #### [facility] [address] [place] [address] Dr. Grzegorz Wang CBC AUTO DIFFon 01-22-2022 BASO # 0.1 103/ul Normal 0.0-0.1 [facility] Comment on above: Performed By: #### C BC #### [facility] [address] [place] [address] Dr. Grzegorz Wang Basophils/100 WBC (Bld) 0.9 % Normal 0.2-2.0 [facility] Comment on above: Performed By: #### C BC #### [facility] [address] [place] [address] Dr. Grzegorz Wang EO # 0.3 103/ul Normal 0.0-0.7 [facility] Comment on above: Performed By: #### C BC #### [facility] [address] [place] [address] Dr. Grzegorz Wang Eosinophils/100 WBC (Bld) 5.5 % Normal 0.9-7.0 [facility] Comment on above: Performed By: #### C BC #### [facility] [address] [place] [address] Dr. Grzegorz Wang Erythrocyte distribution width (RBC) [Ratio] 13.7 % Normal 11.0-15.0 [facility] Comment on above: Performed By: #### C BC #### [facility] [address] [place] [address] Dr. Grzegorz Wang Hematocrit (Bld) [Volume fraction] 41.1 % Normal 36.0-48.0 [facility] Comment on above: Performed By: #### C BC #### [facility] [address] [place] [address] Dr. Grzegorz Wang Hemoglobin (Bld) [Mass/Vol] 13.4 g/dL Normal 12.0-16.0 [facility] Comment on above: Performed By: #### C BC #### [facility] [address] [place] [address] Dr. Grzegorz Wang IG # 0.01 10e3/ul Normal 0.00-0.03 [facility] Comment on above: Performed By: #### C BC #### [facility] [address] [place] [address] Dr. Grzegorz Wang IG % 0.2 % Normal 0.0-0.5 [facility] Comment on above: Performed By: #### C BC #### [facility] [address] [place] [address] Dr. Grzegorz Wang LYMPH # 1.8 103/ul Normal 1.2-3.8 [facility] Comment on above: Performed By: #### C BC #### [facility] [address] [place] [address] Dr. Grzegorz Wang Lymphocytes/100 WBC (Bld) 29.9 % Normal 20.5-60.0 [facility] Comment on above: Performed By: #### C BC #### [facility] [address] [place] [address] Dr. Grzegorz Wang MANUAL DIFF REQ NO Normal [facility] Comment on above: Performed By: #### C BC #### [facility] [address] [place] [address] Dr. Grzegorz Wang MCH (RBC) [Entitic mass] 28.2 pg Normal 26.7-34.0 [facility] Comment on above: Performed By: #### C BC #### [facility] [address] [place] [address] Dr. Grzegorz Wang MCHC (RBC) [Mass/Vol] 32.6 g/dL Normal 29.9-35.2 [facility] Comment on above: Performed By: #### C BC #### [facility] [address] [place] [address] Dr. Grzegorz Wang MCV (RBC) [Entitic vol] 86.5 fL Normal 81.0-99.0 [facility] Comment on above: Performed By: #### C BC #### [facility] [address] [place] [address] Dr. Grzegorz Wang MONO # 0.7 103/ul Normal 0.3-0.8 [facility] Comment on above: Performed By: #### C BC #### [facility] [address] [place] [address] Dr. Grzegorz Wang Monocytes/100 WBC (Bld) 11.1 % Normal 1.7-12.0 [facility] Comment on above: Performed By: #### C BC #### [facility] [address] [place] [address] Dr. Grzegorz Wang NEUT # 3.1 103/ul Normal 1.4-6.5 [facility] Comment on above: Performed By: #### C BC #### [facility] [address] [place] [address] Dr. Grzegorz Wang Neutrophils/100 WBC (Bld) 52.4 % Normal 43.0-75.0 [facility] Comment on above: Performed By: #### C BC #### [facility] [address] [place] [address] Dr. Grzegorz Wang Platelet mean volume (Bld) [Entitic vol] 9.6 fL Normal 9.5-13.5 [facility] Comment on above: Performed By: #### C BC #### [facility] [address] [place] [address] Dr. Grzegorz Wang PLT 162 103/ul Normal 150-450 [facility] Comment on above: Performed By: #### C BC #### [facility] [address] [place] [address] Dr. Grzegorz Wang RBC 4.75 106/ul Normal 4.20-5.40 [facility] Comment on above: Performed By: #### C BC #### [facility] [address] [place] [address] Dr. Grzegorz Wang WBC 5.9 103/ul Normal 4.0-11.0 [facility] Comment on above: Performed By: #### C BC #### [facility] [address] [place] [address] Dr. Grzegorz Wang PROF 14(COMP METB)on 12-12-2 022 Albumin [Mass/Vol] 3.4 g/dL Normal 3.4-5.0 [facility] Comment on above: Performed By: #### E RUR #### [facility] [address] [place] [address] Dr. Grzegorz Wang Albumin/Globulin [Mass ratio] 1.0 {ratio} Normal [facility] Comment on above: Performed By: #### E RUR #### [facility] [address] [place] [address] Dr. Grzegorz Wang ALP [Catalytic activity/Vol] 102 U/L Normal 46-116 [facility] Comment on above: Performed By: #### E RUR #### [facility] [address] [place] [address] Dr. Grzegorz Wang ALT [Catalytic activity/Vol] 16 U/L Normal 14-59 [facility] Comment on above: Performed By: #### E RUR #### [facility] [address] [place] [address] Dr. Grzegorz Wang Anion gap [Moles/Vol] 10.6 mmol/L Normal [facility] Comment on above: Performed By: #### E RUR #### [facility] [address] [place] [address] Dr. Grzegorz Wang AST [Catalytic activity/Vol] 18 U/L Normal 15-37 [facility] Comment on above: Performed By: #### E RUR #### [facility] [address] [place] [address] Dr. Grzegorz Wang Bilirubin [Mass/Vol] 0.4 mg/dL Normal 0.2-1.0 [facility] Comment on above: Performed By: #### E RUR #### [facility] [address] [place] [address] Dr. Grzegorz Wang Calcium [Mass/Vol] 9.0 mg/dL Normal 8.5-10.1 [facility] Comment on above: Performed By: #### E RUR #### [facility] [address] [place] [address] Dr. Grzegorz Wang Chloride [Moles/Vol] 103 mmol/L Normal 98-107 [facility] Comment on above: Performed By: #### E RUR #### [facility] [address] [place] [address] [address] Grzegorz Wang CO2 [Moles/Vol] 31.4 mmol/L Normal 21.0-32.0 [facility] Comment on above: Performed By: #### E RUR #### [facility] [address] [place] [address] [address] Grzegorz Wang Creatinine [Mass/Vol] 0.80 mg/dL Normal 0.55-1.02 [facility] Comment on above: Performed By: #### E RUR #### [facility] [address] [place] [address] [address] Grzegorz Wang EGFR-AF MOROCCAN >60 Normal >=60 [facility] Comment on above: Performed By: #### E RUR #### [facility] [address] [place] [address] [address] Grzegorz Wang EGFR-NON AF MOROCCAN >60 Normal >=60 [facility] Comment on above: Performed By: #### E RUR #### [facility] [address] [place] [address] [address] Grzegorz Wang Globulin (S) [Mass/Vol] 3.4 g/dL Normal [facility] Comment on above: Performed By: #### E RUR #### [facility] [address] [place] [address] [address] Grzegorz Wang Glucose [Mass/Vol] 78 mg/dL Normal 74-106 [facility] Comment on above: Performed By: #### E RUR #### [facility] [address] [place] [address] [address] Grzegorz Wang Potassium [Moles/Vol] 3.0 mmol/L Critically low 3.5-5.1 [facility] Comment on above: Performed By: #### E RUR #### [facility] [address] [place] [address] [address] Grzegorz Wang Protein [Mass/Vol] 6.8 g/dL Normal 6.4-8.2 [facility] Comment on above: Performed By: #### E RUR #### [facility] [address] [place] [address] [address] Grzegorz Wang Sodium [Moles/Vol] 142 mmol/L Normal 136-145 [facility] Comment on above: Performed By: #### E RUR #### [facility] [address] [place] [address] [address] Grzegorz Wang Urea nitrogen [Mass/Vol] 14.0 mg/dL Normal 7.0-18.0 [facility] Comment on above: Performed By: #### E RUR #### [facility] [address] [place] [address] [address] Grzegorz Wang Urea nitrogen/Creatinine [Mass ratio] 17.5 mg/mg Normal [facility] Comment on above: Performed By: #### E RUR #### [facility] [address] [place] [address] [address] Grzegorz Wang US JANETTE DOP LEG [...] by: MIRI BALTAZAR Date: 2022-01-22 16:38 Normal [facility] LIPID PROFILEon 01-18-2022 CHOL-HDL RATIO NORM SEE BELOW Normal [facility] Comment on above: Result Comment: 3.3 - 4.4 LOW RISK 4.4 - 7.1 AVERAGE RISK 7.1 - 11.0 MODERATE RISK >11.0 HIGH RISK Performed By: #### A MY, LIPA #### [facility] [address] [place] [address] [address] Grzegorz Wang Cholesterol [Mass/Vol] 125 mg/dL Normal <=200 [facility] Comment on above: Performed By: #### A MY, LIPA #### [facility] [address] [place] [address] [address] Grzegorz Wang Cholesterol in HDL [Mass/Vol] 69 mg/dL Critically high 40-60 [facility] Comment on above: Performed By: #### A MY, LIPA #### [facility] [address] [place] [address] [address] Grzegorz Wang Cholesterol in LDL [Mass/Vol] 40.0 mg/dL Normal [facility] Comment on above: Performed By: #### A MY, LIPA #### [facility] [address] [place] [address] [address] Grzegorz Wang Cholesterol.total/Claudia sterol in HDL [Mass ratio] 1.8 {ratio} Normal [facility] Comment on above: Performed By: #### A BRAYDEN, LIPA #### [facility] [address] [place] [address] Dr. Grzegorz Wang HDL NORMAL > or = 60 mg/dl - LO W CARDIOVASCULAR RISK <40 mg/dl - HIGH CARDIOVASCULAR RISK Normal [facility] Comment on above: Performed By: #### A BRAYDEN LIPA #### [facility] [address] [place] [address] Dr. Grzegorz Wang LDL CALC NORMAL SEE BELOW Normal [facility] Comment on above: Result Comment: <100 mg/dl OPTIMAL 100 - 129 mg/dl NEAR OR ABOVE OPTIMAL 130 - 159 mg/dl BORDERLINE HIGH 160 - 189 mg/dl HIGH >190 mg/dl VERY HIGH Performed By: #### A BRAYDEN LIPA #### [facility] [address] [place] [address] [address] Grzegorz Wang Triglyceride [Mass/Vol] 80 mg/dL Normal <=[address] [facility] Comment on above: Performed By: #### A BRAYDEN LIPA #### [facility] [address] [place] [address] Dr. Grzegorz Wang VLDL CALC 16.0 mg/dL Normal [facility] Comment on above: Performed By: #### A BRAYDEN LIPA #### [facility] [address] [address] [address] Grzegorz Wang US PELVISon 01-18-2022 US [...] MITZI CHAU Date: 2022-01-18 10:31 Normal [facility] XR CHEST 2 Von 01-03-2022 XR CHEST [...] MITZI CHAU Date: 2022-01-03 10:48 Normal [facility] US PELVISon 12-07-2021 US PELVIS EXAMINATION: US [...] MITZI CHAU Date: 2021-12-07 17:20 Normal [facility] PROF CHEM 8 (BAS METB)on Anion gap [Moles/Vol] 13.0 mmol/L Normal [facility] Comment on above: Performed By: #### A BRAYDEN LIPA #### [facility] [address] [place] [address] Dr. Grzegorz Wang Calcium [Mass/Vol] 8.9 mg/dL Normal 8.5-10.1 [facility] Comment on above: Performed By: #### A BRAYDEN LIPA #### [facility] [address] [place] [address] Dr. Grzegorz Wang Chloride [Moles/Vol] 105 mmol/L Normal 98-107 [facility] Comment on above: Performed By: #### A BRAYDEN LIPA #### [facility] [address] [place] [address] Dr. Grzegorz Wang CO2 [Moles/Vol] 29.0 mmol/L Normal 21.0-32.0 [facility] Comment on above: Performed By: #### A BRAYDEN LIPA #### [facility] [address] [place] [address] Dr. Grzegorz Wang Creatinine [Mass/Vol] 0.79 mg/dL Normal 0.55-1.02 [facility] Comment on above: Performed By: #### A BRAYDEN LIPA #### [facility] [address] [place] [address] Dr. Grzegorz Wang EGFR-AF MOROCCAN >60 Normal >=60 [facility] Comment on above: Performed By: #### A BRAYDEN LIPA #### [facility] [address] [place] [address] Dr. Grzegorz Wang EGFR-NON AF MOROCCAN >60 Normal >=60 [facility] Comment on above: Performed By: #### A BRAYDEN LIPA #### [facility] [address] [place] [address] Dr. Grzegorz Wang Glucose [Mass/Vol] 79 mg/dL Normal 74-106 [facility] Comment on above: Performed By: #### A PHIL OWEN #### [facility] [address] [place] [address] Dr. Grzegorz Wang Potassium [Moles/Vol] 3.0 mmol/L Critically low 3.5-5.1 [facility] Comment on above: Performed By: #### A BRAYDEN LIPA #### [facility] [address] [place] [address] Dr. Grzegorz Wang Sodium [Moles/Vol] 144 mmol/L Normal 136-145 [facility] Comment on above: Performed By: #### A PHIL OWEN #### [facility] [address] [place] [address] Dr. Grzegorz Wang Urea nitrogen [Mass/Vol] 12.0 mg/dL Normal 7.0-18.0 [facility] Comment on above: Performed By: #### A PHIL OWEN #### [facility] [address] [place] [address] Dr. Grzegorz Wang Urea nitrogen/Creatinine [Mass ratio] 15.2 mg/mg Normal [facility] Comment on above: Performed By: #### A PHIL OWEN #### [facility] [address] [place] [address] Dr. Grzegorz Wang VITAMIN B12on 11-27-2021 Cobalamin (Vitamin B12) [Mass/Vol] 5661.0 pg/mL Critically high 193.0-986.0 [facility] Comment on above: Performed By: #### E RUR #### [facility] [address] [place] [address] Dr. Grzegorz Wang BNPon 11-26-2021 Natriuretic peptide B (Bld) [Mass/Vol] 1245.0 pg/mL Critically high <=900.0 [facility] Comment on above: Performed By: #### A PHIL OWEN #### [facility] [address] [place] [address] Dr. Grzegorz Wang Bacterial blood cultureOrder ed By: Ashleigh Rashid on 11-26-2021 Bacteria identified Cx Nom (Bld) NO GROWTH 5 DAYS [facility] CARDIAC BAMBI ADMITon 022 CK [Catalytic activity/Vol] 75 U/L Normal 26-192 [facility] Comment on above: Performed By: #### A MY, LIPA #### [facility] [address] [address] [address] Grzegorz Wang CK.MB [Mass/Vol] 1.58 ng/mL Normal <=3.60 [facility] Comment on above: Performed By: #### A MY, LIPA #### [facility] [address] [address] [address] Grzegorz Wang HSTROP 13.3 pg/mL Normal 4.0-51.3 [facility] Comment on above: Result Comment: CUT- OFF POINTS HAVE BEEN ESTABLISHED BASED ON THE FOURTH UNIVERSAL DEFINITIONS OF MYOCARDIAL INFARCTION. THE UPPER REFERENCE LIMIT (URL) OF TROPONIN, DEFINED THE 99TH PERCENTILE OF cTnI DISTRIBUTION IN A REFERENCE POPULATION, HAS BEEN CONFIRMED THE DECISION THRESHOLD FOR CA DIAGNOSIS. Performed By: #### A BRAYDEN, LIPA #### [facility] [address] [address] [address] Grzegorz Wang MITZI 85 ng/mL Critically high 9-82 [facility] Comment on above: Performed By: #### A BRAYDEN, LIPA #### [facility] [address] [address] [address] Grzegorz Wang CBC AUTO DIFFon 11-26-2021 BASO # 0.0 103/ul Normal 0.0-0.1 [facility] Comment on above: Performed By: #### A BRAYDEN, LIPA #### [facility] [address] [address] [address] Grzegorz Wang Basophils/100 WBC (Bld) 0.5 % Normal 0.2-2.0 [facility] Comment on above: Performed By: #### A MY, LIPA #### [facility] [address] [address] [address] Grzegorz Wang EO # 0.1 103/ul Normal 0.0-0.7 [facility] Comment on above: Performed By: #### A MY LIPA #### [facility] [address] [place] [address] Dr. Grzegorz Wang Eosinophils/100 WBC (Bld) 1.3 % Normal 0.9-7.0 [facility] Comment on above: Performed By: #### A BRAYDEN LIPA #### [facility] [address] [place] [address] Dr. Grzegorz Wang Erythrocyte distribution width (RBC) [Ratio] 16.8 % Critically high 11.0-15.0 [facility] Comment on above: Performed By: #### A BRAYDEN LIPA #### [facility] [address] [place] [address] Dr. Grzegorz Wang Hematocrit (Bld) [Volume fraction] 36.6 % Normal 36.0-48.0 [facility] Comment on above: Performed By: #### A BRAYDEN LIPA #### [facility] [address] [place] [address] Dr. Grzegorz Wang Hemoglobin (Bld) [Mass/Vol] 12.1 g/dL Normal 12.0-16.0 [facility] Comment on above: Performed By: #### A BRAYDEN LIPA #### [facility] [address] [place] [address] Dr. Grzegorz Wang IG # 0.03 10e3/ul Normal 0.00-0.03 [facility] Comment on above: Performed By: #### A BRAYDEN LIPA #### [facility] [address] [place] [address] Dr. Grzegorz Wang IG % 0.5 % Normal 0.0-0.5 [facility] Comment on above: Performed By: #### A BRAYDEN LIPA #### [facility] [address] [place] [address] Dr. Grzegorz Wang LYMPH # 0.9 103/ul Critically low 1.2-3.8 [facility] Comment on above: Performed By: #### A BRADYEN LIPA #### [facility] [address] [place] [address] Dr. Grzegorz Wang Lymphocytes/100 WBC (Bld) 15.4 % Critically low 20.5-60.0 [facility] Comment on above: Performed By: #### A BRAYDEN LIPA #### [facility] [address] [place] [address] Dr. Grzegorz Wang MANUAL DIFF REQ NO Normal [facility] Comment on above: Performed By: #### A MY LIPA #### [facility] [address] [place] [address] Dr. Grzegorz aWng MCH (RBC) [Entitic mass] 27.7 pg Normal 26.7-34.0 [facility] Comment on above: Performed By: #### A BRAYDEN LIPA #### [facility] [address] [place] [address] Dr. Grzegorz Wang MCHC (RBC) [Mass/Vol] 33.1 g/dL Normal 29.9-35.2 [facility] Comment on above: Performed By: #### A BRAYDEN LIPA #### [facility] [address] [place] [address] Dr. Grzegorz Wang MCV (RBC) [Entitic vol] 83.8 fL Normal 81.0-99.0 [facility] Comment on above: Performed By: #### A BRAYDEN LIPA #### [facility] [address] [place] [address] Dr. Grzegorz Wang MONO # 0.5 103/ul Normal 0.3-0.8 [facility] Comment on above: Performed By: #### A BRAYDEN LIPA #### [facility] [address] [place] [address] Dr. Grzegorz Wang Monocytes/100 WBC (Bld) 7.8 % Normal 1.7-12.0 [facility] Comment on above: Performed By: #### A BRAYDEN LIPA #### [facility] [address] [place] [address] Dr. Grzegorz Wang NEUT # 4.5 103/ul Normal 1.4-6.5 [facility] Comment on above: Performed By: #### A BRAYDEN LIPA #### [facility] [address] [place] [address] Dr. Grzegorz Wang Neutrophils/100 WBC (Bld) 74.5 % Normal 43.0-75.0 [facility] Comment on above: Performed By: #### A BRAYDEN LIPA #### [facility] [address] [address] [address] Grzegorz Wang Platelet mean volume (Bld) [Entitic vol] 11.2 fL Normal 9.5-13.5 [facility] Comment on above: Performed By: #### Luna OWEN LIPA #### [facility] [address] [address] [address] Grzegorz Wang PLT 187 103/ul Normal 150-450 [facility] Comment on above: Performed By: #### Luna OWEN LIPA #### [facility] [address] [address] [address] Grzegorz Wang RBC 4.37 106/ul Normal 4.20-5.40 [facility] Comment on above: Performed By: #### Luna OWEN LIPA #### [facility] [address] [address] [address] Grzegorz Wang WBC 6.0 103/ul Normal 4.0-11.0 [facility] Comment on above: Performed By: #### Luna OWEN LIPA #### [facility] [address] [address] ABD/PELVIS WO CONon [...] by: MANDI MANRIQUEZ Date: 2021-11-26 15:[address] [facility] [address] CSPINE WO CONon 2 CT CSPINE [...] SHANIA WASHINGTON Date: 2021-11-26 14:44 Normal [facility] ER URINE PROFILEon 2 Bilirubin Ql (U) Negative Normal NEGATIVE [facility] Comment on above: Performed By: #### C BC #### [facility] [address] [place] [address] Dr. Grzegorz Wang Clarity (U) CLEAR Normal CLEAR [facility] Comment on above: Performed By: #### C BC #### [facility] [address] [address] [address] Grzegorz Wang Color (U) LT. YELLOW Normal YELLOW [facility] Comment on above: Performed By: #### C BC #### [facility] [address] [address] [address] Grzegorz PÉREZ A micrscopic examination will be performed if indicated. Normal [facility] Comment on above: Performed By: #### C BC #### [facility] [address] [address] [address] Grzegorz Wang Glucose Ql (U) Negative Normal NEGATIVE [facility] Comment on above: Performed By: #### C BC #### [facility] [address] [address] [address] Grzegorz Wang Hemoglobin Ql (U) TRACE-INTACT Abnormal NEGATIVE [facility] Comment on above: Performed By: #### C BC #### [facility] [address] [place] [address] Dr. Grzegorz Wang Ketones Ql (U) Negative Normal NEGATIVE [facility] Comment on above: Performed By: #### C BC #### [facility] [address] [place] [address] Dr. Grzegorz Wang LEUKOCYTES Negative Normal NEGATIVE [facility] Comment on above: Performed By: #### C BC #### [facility] [address] [place] [address] Dr. Grzegorz Wang Nitrite Ql (U) Negative Normal NEGATIVE [facility] Comment on above: Performed By: #### C BC #### [facility] [address] [place] [address] Dr. Grzegorz Wang pH (U) 5.5 [pH] Normal 5-9 [facility] Comment on above: Performed By: #### C BC #### [facility] [address] [place] [address] Dr. Grzegorz Wang SPEC GRAVITY <=1.005 Abnormal 1.005-<=1.[address] [place] [address] Comment on above: Performed By: #### C BC #### [facility] [address] [place] [address] Dr. Grzegorz Wang UA PROTEIN Negative Normal NEGATIVE/ TRACE [facility] Comment on above: Performed By: #### C BC #### [facility] [address] [place] [address] Dr. Grzegorz Wang UR MICRO IND INDICATED Normal [facility] Comment on above: Performed By: #### C BC #### [facility] [address] [place] [address] Dr. Grzegorz Wang Urobilinogen Qn (U) 0.2 {Lidya'U}/dL Normal 0.2 - 1. 0 [facility] Comment on above: Performed By: #### C BC #### [facility] [address] [place] [address] Dr. Grzegorz Wang PROF 14(COMP METB)on 11-26- 022 Albumin [Mass/Vol] 3.5 g/dL Normal 3.4-5.0 [facility] Comment on above: Performed By: #### A MY, LIPA #### [facility] [address] [address] [address] Grzegorz Wang Albumin/Globulin [Mass ratio] 1.1 {ratio} Normal [facility] Comment on above: Performed By: #### A MY, LIPA #### [facility] [address] [address] [address] Grzegorz Wang ALP [Catalytic activity/Vol] 89 U/L Normal 46-116 [facility] Comment on above: Performed By: #### A MY, LIPA #### [facility] [address] [address] [address] Grzegorz Wang ALT [Catalytic activity/Vol] 22 U/L Normal 14-59 [facility] Comment on above: Performed By: #### A MY, LIPA #### [facility] [address] [address] [address] Grzegorz Wang Anion gap [Moles/Vol] 10.2 mmol/L Normal [facility] Comment on above: Performed By: #### A MY, LIPA #### [facility] [address] [address] [address] Grzegorz Wang AST [Catalytic activity/Vol] 18 U/L Normal 15-37 [facility] Comment on above: Performed By: #### A MY, LIPA #### [facility] [address] [address] [address] Grzegorz Wang Bilirubin [Mass/Vol] 0.6 mg/dL Normal 0.2-1.0 [facility] Comment on above: Performed By: #### A MY, LIPA #### [facility] [address] [address] [address] Grzegorz Wang Calcium [Mass/Vol] 9.1 mg/dL Normal 8.5-10.1 [facility] Comment on above: Performed By: #### A MY, LIPA #### [facility] [address] [address] [address] Grzegorz Wang Chloride [Moles/Vol] 106 mmol/L Normal 98-107 [facility] Comment on above: Performed By: #### A MY, LIPA #### [facility] [address] [address] [address] Grzegorz Wang CO2 [Moles/Vol] 29.5 mmol/L Normal 21.0-32.0 [facility] Comment on above: Performed By: #### A MY, LIPA #### [facility] [address] [address] [address] Grzegorz Wang Creatinine [Mass/Vol] 0.86 mg/dL Normal 0.55-1.02 [facility] Comment on above: Performed By: #### A MY, LIPA #### [facility] [address] [address] [address] Grzegorz Wang EGFR-AF MOROCCAN >60 Normal >=60 [facility] Comment on above: Performed By: #### A MY, LIPA #### [facility] [address] [address] [address] Grzegorz Wang EGFR-NON AF MOROCCAN >60 Normal >=60 [facility] Comment on above: Performed By: #### A MY, LIPA #### [facility] [address] [address] [address] Grzegorz Wang Globulin (S) [Mass/Vol] 3.1 g/dL Normal [facility] Comment on above: Performed By: #### A MY, LIPA #### [facility] [address] [address] [address] Grzegorz Wang Glucose [Mass/Vol] 98 mg/dL Normal 74-106 [facility] Comment on above: Performed By: #### A MY, LIPA #### [facility] [address] [address] [address] Grzegorz Wang Potassium [Moles/Vol] 2.7 mmol/L Critically low 3.5-5.1 [facility] Comment on above: Performed By: #### A MY, LIPA #### [facility] [address] [address] [address] Grzegorz Wang Protein [Mass/Vol] 6.6 g/dL Normal 6.4-8.2 [facility] Comment on above: Performed By: #### A BRAYDEN LIPA #### [facility] [address] [place] [address] Dr. Grzegorz Wang Sodium [Moles/Vol] 143 mmol/L Normal 136-145 [facility] Comment on above: Performed By: #### A BRAYDEN LIPA #### [facility] [address] [place] [address] Dr. Grzegorz Wang Urea nitrogen [Mass/Vol] 12.0 mg/dL Normal 7.0-18.0 [facility] Comment on above: Performed By: #### A BRAYDEN LIPA #### [facility] [address] [place] [address] Dr. Grzegorz Wang Urea nitrogen/Creatinine [Mass ratio] 14.0 mg/mg Normal [facility] Comment on above: Performed By: #### A BRAYDEN LIPA #### [facility] [address] [place] [address] Dr. Grzegorz Wang PROTIMEon 11-26-2021 INR Coag (PPP) [Relative time] 1.00 {INR} Normal [facility] Comment on above: Performed By: #### C BC #### [facility] [address] [place] [address] Dr. Grzegorz Wang INR GUIDELINES SEE BELOW Normal [facility] Comment on above: Result Comment: DENTON RED INR: 2.0 - 3.0 CONDITIONS NOT LISTED BELOW 2.5 - 3.5 FOR PROSTHETIC HEART VALVE REPLACEMENT 2.5 - 3.5 RECURRENT THROMBOSIS Performed By: #### C BC #### [facility] [address] [place] [address] Dr. Grzegorz Wang PT Coag (PPP) [Time] 10.8 s Normal 9.0-11.6 [facility] Comment on above: Performed By: #### C BC #### [facility] [address] [place] [address] Dr. Grzegorz Wang PTTon 11-26-2021 aPTT Coag (Bld) [Time] 23.1 s Normal 22.3-36.2 [facility] Comment on above: Performed By: #### C BC #### [facility] [address] [place] [address] Dr. Grzegorz Wang URINE MICROSCOPIC ONLYon BACTERIA NONE SEEN Normal NONE SEEN [facility] Comment on above: Performed By: #### C BC #### [facility] [address] [place] [address] Dr. Grzegorz Wang Bacteria identified Cx Nom (U) NOT INDICATED Normal [facility] Comment on above: Performed By: #### C BC #### [facility] [address] [place] [address] Dr. Grzegorz Wang CAST NONE SEEN Normal NONE SEEN [facility] Comment on above: Performed By: #### C BC #### [facility] [address] [place] [address] Dr. Grzegorz Wang Crystals LM Nom (Urine sed) NONE SEEN Normal NONE SEEN [facility] Comment on above: Performed By: #### C BC #### [facility] [address] [place] [address] Dr. Grzegorz Wang Epithelial cells LM Ql (Urine sed) FEW Abnormal NONE SEEN /RARE [facility] Comment on above: Performed By: #### C BC #### [facility] [address] [place] [address] Dr. Grzegorz Wang MUCOUS NONE SEEN Normal NONE SEEN [facility] Comment on above: Performed By: #### C BC #### [facility] [address] [place] [address] Dr. Grzegorz Wang RBC 0-2 Normal 0-2 [facility] Comment on above: Performed By: #### C BC #### [facility] [address] [place] [address] Dr. Grzegorz Wang WBC 0-2 Abnormal NONE SEEN [facility] Comment on above: Performed By: #### C BC #### [facility] [address] [place] [address] Dr. Grzegorz Wang XR CHEST 1 Von [...] by: NATACHA CERNA Date: 2021-11-26 14:[address] [facility] [address] BRAIN HEAD WO CONTRASTon 11-24-2021 CT [...] AGUILAR MD Signed Out: 11/24/21 14:21:18 Normal [facility] ED Adult Data - Texton 11-24 [...] PNED ; Probability: 0 ; Diagnosis Code: [id number] Fall Date: 11/24/2021 ; Diagnosis Type: Reason For Visit ; Confirmation: Confirmed ; Clinical Dx: Fall ; Classification: Medical ; Clinical Service: Emergency medicine ; Code: PNED ; Probability: 0 ; Diagnosis Code: [id number] Procedure History ED Devices Present on Arrival [...] risk situation (congregated living, hemodialysis, infusion clinic, long-term, assisted living, senior living, homeless halfway, etc.)? : No Jennifer Mccarthy RN - 11/24/2021 15:25 EDT Normal [facility] ED Discharge Educationon ED Discharge Education Dermatology Cuts Closed With Norco: Care Instructions Your Care Instructions A cut can happen anywhere on your body. The doctor used kemi to close the cut. Norco easily and quickly close a cut, which [...] your doctor if you can take an aaqf-qgi-lylhqqm medicine. When should you call for help? [...] Where can you learn more? Go to https://www.Moven/patientEd Enter E525 in the search box to learn more about Cuts Closed With Norco: Care Instructions. Current as of: April 08, 2019 Content Version: 12.7 ? [employer]. Care instructions adapted under license by your healthcare professional. If you have questions about a medical condition or this instruction, always ask your healthcare professional. [employer] disclaims any warranty or liability for your [...] she will (more content not included)... Normal [facility] ED Emergency Severity Index Adult-Texton 11-24-2021 [...] Mccarthy RN - 11/24/2021 12:33 EDT Normal [facility] ED Nrsing Adlt Triage Sep Sc [...] Mccarthy RN - 11/24/2021 13:00 EDT Normal [facility] ED Patient Summaryon 022 ED Patient Summary [facility] Emergency Department Discharge Instructions [address] [place] [address] \.br\(Patient Copy)\.br\ \.br\Name: OZZIE GIFFORD : 1950 \.br\Allergies: penicillin\.br\Diagno sis: Accidental fall; CHI (closed head injury); Contusion of rib on right side; Laceration of scalp\.br\ \.br\ Visit Date: 11/24/2021 12:30:03 \.br\ Current Date Time: 11/24/2021 17:30:08 \.br\Address: [address] [place] [address] [place] [address] \.br\ \.br\ \.br\Primary Care Provider: \.br\Name: NO FAMILY PHYSICIAN, 837\.br\Phone: \.br\ \.br\Emergency Department Care Providers: \.br\ Primary Physician: LUIS MCKEON MD \.br\ \.br\ \.br\.br\Thank you for choosing [facility] for your emergency care. You are very important to us. Our goal is to demonstrate our high quality medical care, and provide you with a very good patient experience.\.br\.br\ You may receive a survey about our service. Please take the time to complete the survey and return it so we can continue to enhance our service.\.br\.br\Maxx nk you again for allowing the [facility] Emergency Department to care for your medical needs. If you have questions about your care or follow up information please contact us at [phone].\.br\.b r\ Follow-Up Instructions\.br\____ _\.br\OZZIE GIFFORD has been given these follow-up instructions:\.br\.b r\.br\With: Address: When: \.br\[facility], [facility] [address], [address] [place] [address]\.br\ Business (1) Within 7 to 10 days \.br\.br\.br\With: Address: When: \.br\[address] NO FAMILY PHYSICIAN Within 3 to 5 days \.br\.br\.br\.br\ .br\Patient Education Materials\.br\ \. br\OZZIE GIFFORD has been given the following patient education materials:\.br\.br\C uts Closed With Norco: Care Instructions\.br\Your Care Instructions\.br\A cut can happen anywhere on your body.\.br\The doctor used kemi to close the cut. Norco easily and quickly close a cut, which [...] your doctor if you can take an qggg-frf-qhypzdh medicine.\.br\When should you call for help?\.br\ Call [...] get b (more content not included)... Normal [facility] ED Physician Reporton 2021 ED Physician [...] The location where the incident occurred was [facility]. Location: Posterior head. The character of symptoms is pain. Therapy today: see nurses notes. Associated symptoms: denies loss of consciousness. This is a 71 y/o female presenting to the ED via EMS for evaluation of a mechanical fall. The [place] [employer] and she was going down steps and [...] WO CONTRAST (more content not included)... Normal [facility] ED Pre-Arrival Formon 2021 ED Pre-Arrival Form Pre-Arrival Summary Name: KARTIK, Current Date: 11/24/2021 12:31:19 EDT Gender: Date of : Age: Pre-Arrival Type: EMS ETA: 11/24/2021 12:53:00 EDT Primary Care Physician: Presenting Problem: Pre-Arrival User: Kailyn Jacobs RN Referring Source: Location: [address] [place] [address] Emergency Department [address] [place] [address] Notes: Vital Signs: Doctor Call Back: DNR Status: Miscellaneous Issues: Normal [facility] ED Progress Noteon ED Progress Note [...] understanding, pt ambulatory with steady gait Normal [facility] ED Triage Adult-Texton 11-24 ED Triage [...] PNED ; Probability: 0 ; Diagnosis Code: [id number] (As Of: 11/24/2021 13:00:25 EDT) Vitals/Ht/Wt Temperature [...] Mccarthy RN - 11/24/2021 12:59 EDT Normal [facility] Urine culture routineOrdered By: Rafiq Bahena on 11-23-2021 Bacteria identified Cx Nom (U) Escherichia coli [facility] Albumin [Mass/volume] in Ser um or PlasmaOrdered By: Ashleigh Rashid on 11-22-2021 Albumin [Mass/Vol] 3.0 g/dL 3.2-5.5 [facility] Basophils Auto (Bld) [#/Vol] Ordered By: Ashleigh Rashid on 11-22-2021 Basophils (Bld) [#/Vol] 0.0 10*3/uL 0.0-0.2 [facility] Basophils/100 WBC Auto (Bld) Ordered By: Ashleigh Rashid on 11-22-2021 Basophils/100 WBC (Bld) 0.6 % . [facility] Creatinine and Glomerular fi ltration rate.predicted panel (S/P/Bld)Ordered By: Ashleigh Rashid on 11-22-2021 Creatinine [Mass/Vol] 1.10 mg/dL 0.44-1.03 [facility] Comment on above: Delta: 2.08 on 11/21 Eosinophils Auto (Bld) [#/Vo l]Ordered By: Ashleigh Rashid on 11-22-2021 Eosinophils (Bld) [#/Vol] 0.2 10*3/uL 0.0-0.45 [facility] Eosinophils/100 WBC Auto (Bl d)Ordered By: Ashleigh Rashid on 11-22-2021 Eosinophils/100 WBC (Bld) 4.4 % . [facility] Erythrocyte distribution wid th Auto (RBC) [Ratio]Ordered By: Ashleigh Rashid on 11-22-2021 Erythrocyte distribution width (RBC) [Ratio] 20.7 % 11.9-15.3 [facility] Estimated glomerular filtrat ion rate (GFR) non- AmericanOrdered By: Ashleigh Rashid on 11-22-2021 GFR/1.73 sq M.predicted among non-blacks MDRD (S/P/Bld) [Vol rate/Area] 49 mL/Min [facility] Globulin Calc (S) [Mass/Vol] Ordered By: Ashleigh Rashid on 11-22-2021 Globulin (S) [Mass/Vol] 2.4 g/dL [facility] Hematocrit Auto (Bld) [Volum e fraction]Ordered By: Ashleigh Rashid on 11-22-2021 Hematocrit (Bld) [Volume fraction] 36.9 % 34.0-46.4 [facility] Hemoglobin [Mass/volume] in BloodOrdered By: Ashleigh Rashid on 11-22-2021 Hemoglobin (Bld) [Mass/Vol] 12.1 g/dL 11.8-15.4 [facility] Laboratory - Chemistry and C hemistry - challengeOrdered By: Ashleigh Rashid on 11-22-2021 Magnesium [Mass/Vol] 2.1 mg/dL 1.6-2.6 [facility] - Hematology and Cell countsOrdered By: Ashleigh Rashid on 11-22-2021 Nucleated RBC/100 WBC (Bld) [Ratio] 0.1 % 0-0.5 [facility] Leukocytes [#/volume] in Blo od by Automated countOrdered By: Ashleigh Rashid on 11-22-2021 WBC (Bld) [#/Vol] 4.7 10*3/uL 4.5-11.0 [facility] Lymphocytes Auto (Bld) [#/Vo l]Ordered By: Ashleigh Rashid on 11-22-2021 Lymphocytes (Bld) [#/Vol] 1.2 10*3/uL 1.00-4.8 [facility] Lymphocytes/100 WBC Auto (Bl d)Ordered By: Ashleigh Rashid on 11-22-2021 Lymphocytes/100 WBC (Bld) 26.0 % . [facility] MCH Auto (RBC) [Entitic mass ]Ordered By: Ashleigh Rashid on 11-22-2021 MCH (RBC) [Entitic mass] 27.2 pg 24.7-34.3 [facility] MCHC Auto (RBC) [Mass/Vol]Or dered By: Ashleigh Rashid on 11-22-2021 MCHC (RBC) [Mass/Vol] 32.6 g/dL 32.0-35.0 [facility] MCV Auto (RBC) [Entitic vol] Ordered By: Ashleigh Rashid on 11-22-2021 MCV (RBC) [Entitic vol] 83.5 fL 80-100 [facility] Monocytes Auto (Bld) [#/Vol] Ordered By: Ashleigh Rashid on 11-22-2021 Monocytes (Bld) [#/Vol] 0.4 10*3/uL 0.0-0.8 [facility] Monocytes/100 WBC Auto (Bld) Ordered By: Ashleigh Rashid on 11-22-2021 Monocytes/100 WBC (Bld) 8.4 % . [facility] Neutrophils Auto (Bld) [#/Vo l]Ordered By: Ashleigh Rashid on 11-22-2021 Neutrophils (Bld) [#/Vol] 2.8 10*3/uL 1.8-7.7 [facility] Neutrophils/100 WBC Auto (Bl d)Ordered By: Ashleigh Rashid on 11-22-2021 Neutrophils/100 WBC (Bld) 60.6 % . [facility] No Panel InformationOrdered By: Ashleigh Rashid on 11-22-2021 Estimated GFR () 59 mL/Min [facility] Comment on above: GFR estimated refere nce range: According to KDOQI guidelines, <60 ml/min/1.73m2 is sufficient to diagnose a patient with chronic kidney disease. Pharmacy Creatinine Clearance (Chem 44.22 [facility] Platelet mean volume Auto (B ld) [Entitic vol]Ordered By: Ashleigh Rashid on 11-22-2021 Platelet mean volume (Bld) [Entitic vol] 9.7 fL 6.3-10.7 [facility] Platelets Auto (Bld) [#/Vol] Ordered By: Ashleigh Rashid on 11-22-2021 Platelets (Bld) [#/Vol] 184 10*3/uL 150-450 [facility] Protein [Mass/volume] in Ser um or PlasmaOrdered By: Ashleigh Rashid on 11-22-2021 Protein [Mass/Vol] 5.4 g/dL 6.1-7.9 [facility] RBC Auto (Bld) [#/Vol]Ordere d By: Ashleigh Rashid on 11-22-2021 RBC (Bld) [#/Vol] 4.43 10*6/uL 3.60-5.00 [facility] Serum or plasma alanine zapata otransferase measurement without P-5'-P (enzymatic activiOrdered By: Ashleigh Rashid on 11-22-2021 ALT No additional P-5'-P [Catalytic activity/Vol] 16 U/L 10-60 [facility] Serum or plasma albumin/glob ulin mass ratioOrdered By: Ashleigh Rashid on 11-22-2021 Albumin/Globulin [Mass ratio] 1.3 {ratio} [facility] Serum or plasma alkaline brandy sphatase measurement (enzymatic activity/volume)Ordered By: Ashleigh Rashid on 11-22-2021 ALP [Catalytic activity/Vol] 70 U/L 32-92 [facility] Serum or plasma anion gap de terminationOrdered By: Ashleigh Rashid on 11-22-2021 Anion gap [Moles/Vol] 12.2 mmol/L 6.0-15.0 [facility] Serum or plasma aspartate am inotransferase measurement (enzymatic activity/volume)Ordered By: Ashleigh Rashid on 11-22-2021 AST [Catalytic activity/Vol] 15 U/L 10-42 [facility] Serum or plasma calcium lay urement (mass/volume)Ordered By: Ashleigh Rashid on 11-22-2021 Calcium [Mass/Vol] 8.9 mg/dL 8.2-10.2 [facility] Serum or plasma chloride rosaline surement (moles/volume)Ordered By: Ashleigh Rashid on 11-22-2021 Chloride [Moles/Vol] 115 mmol/L 95-114 [facility] Serum or plasma glucose lay urement (mass/volume)Ordered By: Ashleigh Rashid on 11-22-2021 Glucose [Mass/Vol] 93 mg/dL 70-100 [facility] Comment on above: ADA recommended refe rence rangeRandom Glucose Reference Range is dependent on time and content of last meal. Glucose of more than 200 mg/dL in a nonstressed, ambulatory subject supports the diagnosis of Diabetes Mellitus. Serum or plasma potassium me asurement (moles/volume)Ordered By: Ashleigh Rashid on 11-22-2021 Potassium [Moles/Vol] 3.1 mmol/L 3.5-5.1 [facility] Serum or plasma sodium measu rement (moles/volume)Ordered By: Ashleigh Rashid on 11-22-2021 Sodium [Moles/Vol] 147 mmol/L 136-146 [facility] Serum or plasma total biliru bin measurement (mass/volume)Ordered By: Ashleigh Rashid on 11-22-2021 Bilirubin [Mass/Vol] 0.7 mg/dL 0.3-1.2 [facility] Serum or plasma total carbon dioxide measurement (moles/volume)Ordered By: Ashleigh Rashid on 11-22-2021 CO2 [Moles/Vol] 22.9 mmol/L 22.0-30.0 [facility] Serum or plasma urea nitroge n measurement (mass/volume)Ordered By: Ashleigh Rashid on 11-22-2021 Urea nitrogen [Mass/Vol] 28 mg/dL 11-03 [facility] Amphetamine Screen Ql (U)Ord ered By: Rafiq Bahena on 11-21-2021 Amphetamines Ql (U) Negative Negative [facility] Automated erythrocytes count in urine sediment (number/area)Ordered By: Rafiq Bahena on 11-21-2021 RBC Auto (Urine sed) [#/Area] 0-1 [HPF] 0-4 [facility] Automated leukocytes count i n urine sediment (number/area)Ordered By: Rafiq Bahena on 11-21-2021 WBC Auto (Urine sed) [#/Area] 3-4 [HPF] 0-4 [facility] Barbiturates [Presence] in U rineOrdered By: Rafiq Bahena on 11-21-2021 Barbiturates Ql (U) Negative Negative [facility] Basophils Auto (Bld) [#/Vol] Ordered By: Rafiq Bahena on 11-21-2021 Basophils (Bld) [#/Vol] 0.0 10*3/uL 0.0-0.2 [facility] Basophils/100 WBC Auto (Bld) Ordered By: Rafiq Bahena on 11-21-2021 Basophils/100 WBC (Bld) 0.8 % . [facility] Benzodiazepines [Presence] i n UrineOrdered By: Rafiq Bahena on 11-21-2021 Benzodiazepines Ql (U) Negative Negative [facility] Bilirubin Test strip Ql (U)O rdered By: Rafiq Bahena on 11-21-2021 Bilirubin Ql (U) Negative Negative [facility] Blood hemoglobin measurement (mass/volume)Ordered By: Rafiq Bahena on 11-21-2021 Hemoglobin (Bld) [Mass/Vol] 11.6 g/dL 11.8-15.4 [facility] Blood leukocytes automated c ount (number/volume)Ordered By: Rafiq Bahena on 11-21-2021 WBC (Bld) [#/Vol] 5.3 10*3/uL 4.5-11.0 [facility] Body fluid albumin measureme nt (mass/volume)Ordered By: Rafiq Bahena on 11-21-2021 Albumin (Body fld) [Mass/Vol] 3.4 g/dL 3.2-5.5 [facility] COVID CepheidOrdered By: Dagoberto nadege Gay on 11-21-2021 SARS-CoV-2 (COVID-19) Ab IA Ql Negative Negative [facility] Comment on above: This is a duplicate [facility] Xpress CoV-2/Flu/RSV Plus RNA by RT-PCR result to be used for statistical tracking purpose only. SARS-CoV-2 (COVID-19) RNA SIOBHAN+probe Ql (Unsp spec) [facility] COVID-19 Positive/NegativeOr dered By: Rafiq Bahena on 11-21-2021 SARS-CoV-2 (COVID-19) N gene SIOBHAN+probe Ql (Resp) Indeterminate Negative [facility] Comment on above: Testing for SARS-CoV -2 by RT-PCRThis test was developed and its performance characteristics determined by [employer]) and validated at the [facility]. This test has not been FDA cleared [...] (COVID-19) Ag IA.rapid Ql (Resp) Negative Negative [facility] Comment on above: This is a duplicate Sissy SARS Antigen ([employer]ALK[employer]) result to be used for statistical tracking purpose only. Cannabinoids [Presence] in U rine by Screen methodOrdered By: Rafiq Bahena on 11-21-2021 Cannabinoids Screen Ql (U) Negative Negative [facility] Comment on above: These are unconfirme d results and should not be used for legal purposes. Drug Cut-Off Concentration: AMPH 1000 ng/mL RONALD 200 ng/mL CARMELA 200 ng/mL COCM 300 ng/mL OP 300 ng/mL PCP 25 ng/mL THC 20 ng/mL Color Auto (U)Ordered By: Vishnu Bahena on 11-21-2021 Color (U) Yellow Yellow [facility] Creatinine and Glomerular fi ltration rate.predicted panel (S/P/Bld)Ordered By: Rafiq Bahena on 11-21-2021 Creatinine [Mass/Vol] 2.08 mg/dL 0.44-1.03 [facility] Eosinophils Auto (Bld) [#/Vo l]Ordered By: Rafiq Bahena on 11-21-2021 Eosinophils (Bld) [#/Vol] 0.2 10*3/uL 0.0-0.45 [facility] Eosinophils/100 WBC Auto (Bl d)Ordered By: Raifq Bahena on 11-21-2021 Eosinophils/100 WBC (Bld) 3.7 % . [facility] Erythrocyte distribution wid th Auto (RBC) [Ratio]Ordered By: Rafiq Bahena on 11-21-2021 Erythrocyte distribution width (RBC) [Ratio] 20.4 % 11.9-15.3 [facility] Estimated glomerular filtrat ion rate (GFR) non- AmericanOrdered By: Rafiq Bahena on 11-21-2021 GFR/1.73 sq M.predicted among non-blacks MDRD (S/P/Bld) [Vol rate/Area] 23 mL/Min [facility] Globulin Calc (S) [Mass/Vol] Ordered By: Rafiq Bahena on 11-21-2021 Globulin (S) [Mass/Vol] 2.1 g/dL [facility] Glucose Glucometer (BldC) [M ass/Vol]Ordered By: Rafiq Bahena on 11-21-2021 Glucose [Mass/Vol] 134 mg/dL [facility] Comment on above: Random Glucose Refer ence Range is dependent on time and content of last meal. Glucose of more than 200 mg/dL in a nonstressed, ambulatory subject supports the diagnosis of Diabetes Mellitus. Hematocrit Auto (Bld) [Volum e fraction]Ordered By: Rafiq Bahena on 11-21-2021 Hematocrit (Bld) [Volume fraction] 35.6 % 34.0-46.4 [facility] Ketones Auto test strip (U) [Mass/Vol]Ordered By: Rafiq Bahena on 11-21-2021 Ketones (U) [Mass/Vol] Negative Negative [facility] - Chemistry and C hemistry - challengeOrdered By: Rafiq Bahena on 11-21-2021 CO2 [Moles/Vol] 23.8 mmol/L 23.0-27.0 [facility] HCO3 (Bld) [Moles/Vol] 22.6 mmol/L 23.0-29.0 [facility] - Drug toxicology Ordered By: Rafiq Bahena on 11-21-2021 Opiates Ql (U) Negative Negative [facility] Laboratory - Hematology and Cell countsOrdered By: Rafiq Bahena on 11-21-2021 Nucleated RBC/100 WBC (Bld) [Ratio] 0.0 % 0-0.5 [facility] - UrinalysisOrder ed By: Rafiq Bahena on 11-21-2021 Hyaline casts LM Ql (Urine sed) 0-8 [LPF] 0-8 [facility] Lymphocytes Auto (Bld) [#/Vo l]Ordered By: Rafiq Bahena on 11-21-2021 Lymphocytes (Bld) [#/Vol] 1.1 10*3/uL 1.00-4.8 [facility] Lymphocytes/100 WBC Auto (Bl d)Ordered By: Rafiq Bahena on 11-21-2021 Lymphocytes/100 WBC (Bld) 20.4 % . [facility] MCH Auto (RBC) [Entitic mass ]Ordered By: Rafiq Bahena on 11-21-2021 MCH (RBC) [Entitic mass] 26.9 pg 24.7-34.3 [facility] MCHC Auto (RBC) [Mass/Vol]Or dered By: Rafiq Bahena on 11-21-2021 MCHC (RBC) [Mass/Vol] 32.6 g/dL 32.0-35.0 [facility] MCV Auto (RBC) [Entitic vol] Ordered By: Rafiq Bahena on 11-21-2021 MCV (RBC) [Entitic vol] 82.5 fL 80-100 [facility] Monocyte %Ordered By: Rafiq Bahena on 11-21-2021 Monocyte % 17 umol/L 11- [facility] Monocytes Auto (Bld) [#/Vol] Ordered By: Rafiq Bahena on 11-21-2021 Monocytes (Bld) [#/Vol] 0.5 10*3/uL 0.0-0.8 [facility] Monocytes/100 WBC Auto (Bld) Ordered By: Rafiq Bahena on 11-21-2021 Monocytes/100 WBC (Bld) 9.9 % . [facility] Neutrophils Auto (Bld) [#/Vo l]Ordered By: Rafiq Bahena on 11-21-2021 Neutrophils (Bld) [#/Vol] 3.5 10*3/uL 1.8-7.7 [facility] Neutrophils/100 WBC Auto (Bl d)Ordered By: Rafiq Bahena on 11-21-2021 Neutrophils/100 WBC (Bld) 65.2 % . [facility] Nitrite Test strip Ql (U)Ord ered By: Rafiq Bahena on 11-21-2021 Nitrite Ql (U) Positive Negative [facility] No Panel InformationOrdered By: Ashleigh Rashid on 11-21-2021 Vitamin B12 Level > 7500 pg/mL 180-914 [facility] No Panel InformationOrdered By: Rafiq Bahena on 11-21-2021 Arterial Blood Base Excess -1.9 mmol/L -3.0-3.0 [facility] Arterial Blood Oxygen Content 7.1 mmol/L 6.6-9.7 [facility] Arterial Blood Oxygen Saturation 95.9 % 95.0-100.0 [facility] Arterial Blood Partial Pressure CO2 37.8 mm[Hg] 35.0-45.0 [facility] Arterial Blood Partial Pressure O2 82.7 mm[Hg] 80.0-100.0 [facility] Arterial Blood pH 7.40 7.35-7.45 [facility] Blood Gas Critical Value See comment [facility] Comment on above: Critical Value sargent d on: 11/21/2021 at 06:17 Blood Gas Sample Site Left radial [facility] FiO2 21 % [facility] Estimated GFR () 28 mL/Min [facility] Comment on above: GFR estimated refere nce range: According to KDOQI guidelines, <60 ml/min/1.73m2 is sufficient to diagnose a patient with chronic kidney disease. Pharmacy Creatinine Clearance (Chem 22.98 [facility] Bedside Glucose Comment Glu2: cleaned meter [facility] Phencyclidine Screen Ql (U)O rdered By: Rafiq Bahena on 11-21-2021 Phencyclidine Ql (U) Negative Negative [facility] Platelet mean volume Auto (B ld) [Entitic vol]Ordered By: Rafiq Bahena on 11-21-2021 Platelet mean volume (Bld) [Entitic vol] 9.6 fL 6.3-10.7 [facility] Platelets Auto (Bld) [#/Vol] Ordered By: Rafiq Bahena on 11-21-2021 Platelets (Bld) [#/Vol] 140 10*3/uL 150-450 [facility] Protein Auto test strip (U) [Mass/Vol]Ordered By: Rafiq Bahena on 11-21-2021 Protein (U) [Mass/Vol] Negative Negative [facility] Protein [Mass/volume] in Ser um or PlasmaOrdered By: Rafiq Bahena on 11-21-2021 Protein [Mass/Vol] 5.5 g/dL 6.1-7.9 [facility] RBC Auto (Bld) [#/Vol]Ordere d By: Rafiq Bahena on 11-21-2021 RBC (Bld) [#/Vol] 4.31 10*6/uL 3.60-5.00 [facility] Serum or plasma alanine zapata otransferase measurement without P-5'-P (enzymatic activiOrdered By: Rafiq Bahena on 11-21-2021 ALT No additional P-5'-P [Catalytic activity/Vol] 17 U/L 10-60 [facility] Serum or plasma albumin/glob ulin mass ratioOrdered By: Rafiq Bahena on 11-21-2021 Albumin/Globulin [Mass ratio] 1.6 {ratio} [facility] Serum or plasma alkaline brandy sphatase measurement (enzymatic activity/volume)Ordered By: Rafiq Bahena on 11-21-2021 ALP [Catalytic activity/Vol] 74 U/L 32-92 [facility] Serum or plasma anion gap de terminationOrdered By: Rafiq Bahena on 11-21-2021 Anion gap [Moles/Vol] 14.6 mmol/L 6.0-15.0 [facility] Serum or plasma aspartate am inotransferase measurement (enzymatic activity/volume)Ordered By: Rafiq Bahena on 11-21-2021 AST [Catalytic activity/Vol] 19 U/L 10-42 [facility] Serum or plasma calcium lay urement (mass/volume)Ordered By: Rafiq Bahena on 11-21-2021 Calcium [Mass/Vol] 9.1 mg/dL 8.2-10.2 [facility] Serum or plasma chloride rosaline surement (moles/volume)Ordered By: Rafiq Bahena on 11-21-2021 Chloride [Moles/Vol] 107 mmol/L 95-114 [facility] Serum or plasma ethanol lay urement (mass/volume)Ordered By: Rafiq Bahena on 11-21-2021 Ethanol [Mass/Vol] mg/dL [facility] Ethanol [Mass/Vol] TNP [facility] Comment on above: Test not performed Serum or plasma glucose lay urement (mass/volume)Ordered By: Rafiq Bahena on 11-21-2021 Glucose [Mass/Vol] 124 mg/dL 70-100 [facility] Comment on above: ADA recommended refe rence rangeRandom Glucose Reference Range is dependent on time and content of last meal. Glucose of more than 200 mg/dL in a nonstressed, ambulatory subject supports the diagnosis of Diabetes Mellitus. Serum or plasma potassium me asurement (moles/volume)Ordered By: Rafiq Bahena on 11-21-2021 Potassium [Moles/Vol] 3.1 mmol/L 3.5-5.1 [facility] Serum or plasma sodium measu rement (moles/volume)Ordered By: Rafiq Bahena on 11-21-2021 Sodium [Moles/Vol] 142 mmol/L 136-146 [facility] Serum or plasma total biliru bin measurement (mass/volume)Ordered By: Rafiq Bahena on 11-21-2021 Bilirubin [Mass/Vol] 0.3 mg/dL 0.3-1.2 [facility] Serum or plasma total carbon dioxide measurement (moles/volume)Ordered By: Rafiq Bahena on 11-21-2021 CO2 [Moles/Vol] 23.5 mmol/L 22.0-30.0 [facility] Serum or plasma urea nitroge n measurement (mass/volume)Ordered By: Rafiq Bahena on 11-21-2021 Urea nitrogen [Mass/Vol] 49 mg/dL 9-23 [facility] Specific gravity Auto test s trip (U) [Rel density]Ordered By: Rafiq Bahena on 11-21-2021 Specific gravity (U) [Rel density] 1.010 1.001-1.030 [facility] Squamous epithelial cells de tection in urine sediment by light microscopyOrdered By: Rafiq Bahena on 11-21-2021 Epithelial cells.squamous LM Ql (Urine sed) 1-2 [HPF] 0-2 [facility] TSH DL <= 0.005 mIU/L QnOrde red By: Rafiq Bahena on 11-21-2021 TSH Qn 2.40 m[IU]/L 0.45-5.33 [facility] Thyroxine (T4) free [Mass/vo lume] in Serum or PlasmaOrdered By: Rafiq Bahena on 11-21-2021 Free T4 [Mass/Vol] 0.68 ng/dL 0.61-1.12 [facility] Troponin I.cardiac [Mass/vol ume] in Serum or Plasma by High sensitivity methodOrdered By: Rafiq Bahena on 11-21-2021 Troponin I.cardiac High sensitivity method [Mass/Vol] 6 pg/mL 0-15 [facility] Urine bacteria detection by automated methodOrdered By: Rafiq Bahena on 11-21-2021 Bacteria Auto Ql (U) 2+ None Seen [facility] Urine clarity by refractomet ry automatedOrdered By: Rafiq Bahena on 11-21-2021 Clarity Refractometry automated (U) Clear Clear [facility] Urine cocaine detectionOrder ed By: Rafiq Bahena on 11-21-2021 Cocaine Ql (U) Negative Negative [facility] Urine glucose measurement by automated test strip (mass/volume)Ordered By: Rafiq Bahena on 11-21-2021 Glucose Auto test strip (U) [Mass/Vol] Normal mg/dL Normal [facility] Urine hemoglobin detection b y automated test stripOrdered By: Rafiq Bahena on 11-21-2021 Hemoglobin Auto test strip Ql (U) Negative Negative [facility] Urine leukocyte esterase det ection by automated test stripOrdered By: Rafiq Bahena on 11-21-2021 Leukocyte esterase Auto test strip Ql (U) 1+ Negative [facility] Urobilinogen Auto test strip (U) [Mass/Vol]Ordered By: Rafiq Bahena on 11-21-2021 Urobilinogen (U) [Mass/Vol] Normal mg/dL Normal [facility] pH Auto test strip (U)Ordere d By: Rafiq Bahena on 11-21-2021 pH (U) 5.5 [pH] 5.0-9.0 [facility] CBC AUTO DIFFon 10-24-2021 BASO # 0.1 103/ul Normal 0.0-0.1 [facility] Comment on above: Performed By: #### C BC #### [facility] [address] [place] [address] Dr. Grzegorz Wang Basophils/100 WBC (Bld) 0.6 % Normal 0.2-2.0 [facility] Comment on above: Performed By: #### C BC #### [facility] [address] [place] [address] Dr. Grzegorz Wang EO # 0.4 103/ul Normal 0.0-0.7 [facility] Comment on above: Performed By: #### C BC #### [facility] [address] [place] [address] Dr. Grzegorz Wang Eosinophils/100 WBC (Bld) 5.0 % Normal 0.9-7.0 [facility] Comment on above: Performed By: #### C BC #### [facility] [address] [place] [address] Dr. Grzegorz Wang Erythrocyte distribution width (RBC) [Ratio] 18.6 % Critically high 11.0-15.0 [facility] Comment on above: Performed By: #### C BC #### [facility] [address] [place] [address] Dr. Grzegorz Wang Hematocrit (Bld) [Volume fraction] 35.7 % Critically low 36.0-48.0 [facility] Comment on above: Performed By: #### C BC #### [facility] [address] [place] [address] Dr. Grzegorz Wang Hemoglobin (Bld) [Mass/Vol] 11.2 g/dL Critically low 12.0-16.0 [facility] Comment on above: Performed By: #### C BC #### [facility] [address] [place] [address] Dr. Grzegorz Wang IG # 0.04 10e3/ul Critically high 0.00-0.03 [facility] Comment on above: Performed By: #### C BC #### [facility] [address] [place] [address] Dr. Grzegorz Wang IG % 0.5 % Normal 0.0-0.5 [facility] Comment on above: Performed By: #### C BC #### [facility] [address] [place] [address] Dr. Grzegorz Wang LYMPH # 1.9 103/ul Normal 1.2-3.8 [facility] Comment on above: Performed By: #### C BC #### [facility] [address] [place] [address] Dr. Grzegorz Wang Lymphocytes/100 WBC (Bld) 22.2 % Normal 20.5-60.0 [facility] Comment on above: Performed By: #### C BC #### [facility] [address] [place] [address] Dr. Grzegorz Wang MANUAL DIFF REQ NO Normal [facility] Comment on above: Performed By: #### C BC #### [facility] [address] [place] [address] Dr. Grzegorz Wang MCH (RBC) [Entitic mass] 26.4 pg Critically low 26.7-34.0 [facility] Comment on above: Performed By: #### C BC #### [facility] [address] [place] [address] Dr. Grzegorz Wang MCHC (RBC) [Mass/Vol] 31.4 g/dL Normal 29.9-35.2 [facility] Comment on above: Performed By: #### C BC #### [facility] [address] [place] [address] Dr. Grzegorz Wang MCV (RBC) [Entitic vol] 84.2 fL Normal 81.0-99.0 [facility] Comment on above: Performed By: #### C BC #### [facility] [address] [place] [address] Dr. Grzegorz Wang MONO # 0.8 103/ul Normal 0.3-0.8 [facility] Comment on above: Performed By: #### C BC #### [facility] [address] [place] [address] Dr. Grzegorz Wang Monocytes/100 WBC (Bld) 10.0 % Normal 1.7-12.0 [facility] Comment on above: Performed By: #### C BC #### [facility] [address] [place] [address] Dr. Grzegorz Wang NEUT # 5.2 103/ul Normal 1.4-6.5 [facility] Comment on above: Performed By: #### C BC #### [facility] [address] [place] [address] Dr. Grzegorz Wang Neutrophils/100 WBC (Bld) 61.7 % Normal 43.0-75.0 [facility] Comment on above: Performed By: #### C BC #### [facility] [address] [place] [address] Dr. Grzegorz Wang Platelet mean volume (Bld) [Entitic vol] 11.8 fL Normal 9.5-13.5 [facility] Comment on above: Performed By: #### C BC #### [facility] [address] [place] [address] Dr. Grzegorz Wang PLT 219 103/ul Normal 150-450 [facility] Comment on above: Performed By: #### C BC #### [facility] [address] [place] [address] Dr. Grzegorz Wang RBC 4.24 106/ul Normal 4.20-5.40 [facility] Comment on above: Performed By: #### C BC #### [facility] [address] [place] [address] Dr. Grzegorz Wang WBC 8.4 103/ul Normal 4.0-11.0 [facility] Comment on above: Performed By: #### C BC #### [facility] [address] [place] [address] Dr. Grzegorz Wang PRBC LEUKOREDUCEDon 10-23-19 ABO and Rh group Nom (Bld) Cross Match Result Compatible Unit Blood Type O Pos Unit Number [id number] Status Information Transfused Product ID Red Blood Cells Product Code [id number] Cross Match Result Compatible Blood Bank Notes CALLED SARATH GLYNN RN ON [facility] 10/17/21 @ 0850 Unit Blood Type O Neg Unit Number [id number] Status Information Transfused Product ID Red Blood Cells Product Code [id number] [facility] Comment on above: Performed By: #### C BC #### [facility] [address] [place] [address] Dr. Grzegorz Wang ABO and Rh group Nom (Bld) Cross Match Result Compatible Unit Blood Type O Neg Unit Number [id number] Status Information Transfused Product ID Red Blood Cells Product Code [id number] Cross Match Result Compatible Unit Blood Type O Neg Unit Number [id number] Status Information Transfused Product ID Red Blood Cells Product Code [id number] [facility] Comment on above: Performed By: #### C BC #### [facility] [address] [place] [address] Dr. Grzegorz Wang CBC AUTO DIFFon 10-18-2021 BASO # 0.0 103/ul Normal 0.0-0.1 [facility] Comment on above: Performed By: #### C BC #### [facility] [address] [address] [address] Grzegorz Wang Basophils/100 WBC (Bld) 0.7 % Normal 0.2-2.0 [facility] Comment on above: Performed By: #### C BC #### [facility] [address] [address] [address] Grzegorz aWng EO # 0.2 103/ul Normal 0.0-0.7 [facility] Comment on above: Performed By: #### C BC #### [facility] [address] [place] [address] Dr. Grzegorz Wang Eosinophils/100 WBC (Bld) 2.9 % Normal 0.9-7.0 [facility] Comment on above: Performed By: #### C BC #### [facility] [address] [place] [address] Dr. Grzegorz Wang Erythrocyte distribution width (RBC) [Ratio] 17.8 % Critically high 11.0-15.0 [facility] Comment on above: Performed By: #### C BC #### [facility] [address] [place] [address] Dr. Grzegorz Wang Hematocrit (Bld) [Volume fraction] 30.1 % Critically low 36.0-48.0 [facility] Comment on above: Performed By: #### C BC #### [facility] [address] [place] [address] Dr. Grzegorz Wang Hemoglobin (Bld) [Mass/Vol] 9.6 g/dL Critically low 12.0-16.0 [facility] Comment on above: Performed By: #### C BC #### [facility] [address] [place] [address] Dr. Grzegorz Wang IG # 0.08 10e3/ul Critically high 0.00-0.03 [facility] Comment on above: Performed By: #### C BC #### [facility] [address] [place] [address] Dr. Grzegorz Wang IG % 1.3 % Critically high 0.0-0.5 [facility] Comment on above: Performed By: #### C BC #### [facility] [address] [place] [address] Dr. Grzegorz Wang LYMPH # 1.8 103/ul Normal 1.2-3.8 [facility] Comment on above: Performed By: #### C BC #### [facility] [address] [place] [address] Dr. Grzegorz Wang Lymphocytes/100 WBC (Bld) 29.4 % Normal 20.5-60.0 [facility] Comment on above: Performed By: #### C BC #### [facility] [address] [place] [address] Dr. Grzegorz Wang MANUAL DIFF REQ NO Normal [facility] Comment on above: Performed By: #### C BC #### [facility] [address] [place] [address] Dr. Grzegorz Wang MCH (RBC) [Entitic mass] 25.9 pg Critically low 26.7-34.0 [facility] Comment on above: Performed By: #### C BC #### [facility] [address] [place] [address] Dr. Grzegorz Wang MCHC (RBC) [Mass/Vol] 31.9 g/dL Normal 29.9-35.2 [facility] Comment on above: Performed By: #### C BC #### [facility] [address] [place] [address] Dr. Grzegorz Wang MCV (RBC) [Entitic vol] 81.4 fL Normal 81.0-99.0 [facility] Comment on above: Performed By: #### C BC #### [facility] [address] [place] [address] Dr. Grzegorz Wang MONO # 0.7 103/ul Normal 0.3-0.8 [facility] Comment on above: Performed By: #### C BC #### [facility] [address] [place] [address] Dr. Grzegorz Wang Monocytes/100 WBC (Bld) 11.9 % Normal 1.7-12.0 [facility] Comment on above: Performed By: #### C BC #### [facility] [address] [place] [address] Dr. Grzegorz Wang NEUT # 3.3 103/ul Normal 1.4-6.5 [facility] Comment on above: Performed By: #### C BC #### [facility] [address] [place] [address] Dr. Grzegorz Wang Neutrophils/100 WBC (Bld) 53.8 % Normal 43.0-75.0 [facility] Comment on above: Performed By: #### C BC #### [facility] [address] [place] [address] Dr. Grzegorz Wang Platelet mean volume (Bld) [Entitic vol] 10.5 fL Normal 9.5-13.5 [facility] Comment on above: Performed By: #### C BC #### [facility] [address] [place] [address] Dr. Grzegorz Wang PLT 206 103/ul Normal 150-450 [facility] Comment on above: Performed By: #### C BC #### [facility] [address] [place] [address] Dr. Grzegorz Wang RBC 3.70 106/ul Critically low 4.20-5.40 [facility] Comment on above: Performed By: #### C BC #### [facility] [address] [place] [address] Dr. Grzegorz Wang WBC 6.1 103/ul Normal 4.0-11.0 [facility] Comment on above: Performed By: #### C BC #### [facility] [address] [place] [address] Dr. Grzegorz Wang PROF CHEM 8 (BAS METB)on Anion gap [Moles/Vol] 9.6 mmol/L Normal [facility] Comment on above: Performed By: #### C BC #### [facility] [address] [place] [address] Dr. Grzegorz Wang Calcium [Mass/Vol] 8.5 mg/dL Normal 8.5-10.1 [facility] Comment on above: Performed By: #### C BC #### [facility] [address] [address] [address] Grzegorz Wang Chloride [Moles/Vol] 113 mmol/L Critically high 98-107 [facility] Comment on above: Performed By: #### C BC #### [facility] [address] [address] [address] Grzegorz Wang CO2 [Moles/Vol] 26.6 mmol/L Normal 21.0-32.0 [facility] Comment on above: Performed By: #### C BC #### [facility] [address] [place] [address] Dr. Grzegorz Wang Creatinine [Mass/Vol] 0.94 mg/dL Normal 0.55-1.02 [facility] Comment on above: Performed By: #### C BC #### [facility] [address] [address] [address] Grzegorz Wang EGFR-AF MOROCCAN >60 Normal >=60 [facility] Comment on above: Performed By: #### C BC #### [facility] [address] [address] [address] Grzegorz Wang EGFR-NON AF MOROCCAN 58 mL/min/1.73m2 Critically low >=60 [facility] Comment on above: Performed By: #### C BC #### [facility] [address] [address] [address] Grzegorz Wang Glucose [Mass/Vol] 97 mg/dL Normal 74-106 [facility] Comment on above: Performed By: #### C BC #### [facility] [address] [address] [address] Grzegorz Wang Potassium [Moles/Vol] 3.2 mmol/L Critically low 3.5-5.1 [facility] Comment on above: Performed By: #### C BC #### [facility] [address] [address] [address] Grzegorz Wang Sodium [Moles/Vol] 146 mmol/L Critically high 136-145 [facility] Comment on above: Performed By: #### C BC #### [facility] [address] [place] [address] Dr. Grzegorz Wang Urea nitrogen [Mass/Vol] 38.0 mg/dL Critically high 7.0-18.0 [facility] Comment on above: Performed By: #### C BC #### [facility] [address] [place] [address] Dr. Grzegorz Wang Urea nitrogen/Creatinine [Mass ratio] 40.4 mg/mg Normal [facility] Comment on above: Performed By: #### C BC #### [facility] [address] [place] [address] Dr. Grzegorz Wang CBC AUTO DIFFon 10-17-2021 BASO # 0.1 103/ul Normal 0.0-0.1 [facility] Comment on above: Performed By: #### C BC #### [facility] [address] [place] [address] Dr. Grzegorz Wang Basophils/100 WBC (Bld) 0.9 % Normal 0.2-2.0 [facility] Comment on above: Performed By: #### C BC #### [facility] [address] [place] [address] Dr. Grzegorz Wang EO # 0.2 103/ul Normal 0.0-0.7 [facility] Comment on above: Performed By: #### C BC #### [facility] [address] [place] [address] Dr. Grzegorz Wang Eosinophils/100 WBC (Bld) 3.1 % Normal 0.9-7.0 [facility] Comment on above: Performed By: #### C BC #### [facility] [address] [place] [address] Dr. Grzegorz Wang Erythrocyte distribution width (RBC) [Ratio] 17.6 % Critically high 11.0-15.0 [facility] Comment on above: Performed By: #### C BC #### [facility] [address] [place] [address] Dr. Grzegorz Wang Hematocrit (Bld) [Volume fraction] 35.7 % Critically low 36.0-48.0 [facility] Comment on above: Performed By: #### C BC #### [facility] [address] [place] [address] Dr. Grzegorz Wang Hemoglobin (Bld) [Mass/Vol] 11.5 g/dL Critically low 12.0-16.0 [facility] Comment on above: Result Comment: rcvd . blood Performed By: #### C BC #### [facility] [address] [place] [address] Dr. Grzegorz Wang IG # 0.18 10e3/ul Critically high 0.00-0.03 [facility] Comment on above: Performed By: #### C BC #### [facility] [address] [place] [address] Dr. Grzegorz Wang IG % 2.6 % Critically high 0.0-0.5 [facility] Comment on above: Performed By: #### C BC #### [facility] [address] [place] [address] Dr. Grzegorz Wang LYMPH # 1.5 103/ul Normal 1.2-3.8 [facility] Comment on above: Performed By: #### C BC #### [facility] [address] [place] [address] Dr. Grzegorz Wang Lymphocytes/100 WBC (Bld) 21.4 % Normal 20.5-60.0 [facility] Comment on above: Performed By: #### C BC #### [facility] [address] [place] [address] Dr. Grzegorz Wang MANUAL DIFF REQ NO Normal [facility] Comment on above: Performed By: #### C BC #### [facility] [address] [place] [address] Dr. Grzegorz Wang MCH (RBC) [Entitic mass] 26.0 pg Critically low 26.7-34.0 [facility] Comment on above: Performed By: #### C BC #### [facility] [address] [place] [address] Dr. Grzegorz Wang MCHC (RBC) [Mass/Vol] 32.2 g/dL Normal 29.9-35.2 [facility] Comment on above: Performed By: #### C BC #### [facility] [address] [place] [address] Dr. Grzegorz Wang MCV (RBC) [Entitic vol] 80.6 fL Critically low 81.0-99. 0 [facility] Comment on above: Performed By: #### C BC #### [facility] [address] [place] [address] Dr. Grzegorz Wang MONO # 0.7 103/ul Normal 0.3-0.8 [facility] Comment on above: Performed By: #### C BC #### [facility] [address] [place] [address] Dr. Grzegorz Wang Monocytes/100 WBC (Bld) 10.8 % Normal 1.7-12.0 [facility] Comment on above: Performed By: #### C BC #### [facility] [address] [place] [address] Dr. Grzegorz Wang NEUT # 4.2 103/ul Normal 1.4-6.5 [facility] Comment on above: Performed By: #### C BC #### [facility] [address] [place] [address] Dr. Grzegorz Wang Neutrophils/100 WBC (Bld) 61.2 % Normal 43.0-75.0 [facility] Comment on above: Performed By: #### C BC #### [facility] [address] [place] [address] Dr. Grzegorz Wang Platelet mean volume (Bld) [Entitic vol] 9.9 fL Normal 9.5-13.5 [facility] Comment on above: Performed By: #### C BC #### [facility] [address] [place] [address] Dr. Grzegorz Wang PLT 228 103/ul Normal 150-450 [facility] Comment on above: Performed By: #### C BC #### [facility] [address] [place] [address] Dr. Grzegorz Wang RBC 4.43 106/ul Normal 4.20-5.40 [facility] Comment on above: Performed By: #### C BC #### [facility] [address] [address] [address] Grzegorz Wang WBC 6.9 103/ul Normal 4.0-11.0 [facility] Comment on above: Performed By: #### C BC #### [facility] [address] [address] [address] Grzegorz Wang BASO # 0.0 103/ul Normal 0.0-0.1 [facility] Comment on above: Performed By: #### C BC #### [facility] [address] [address] [address] Grezgorz Wang Basophils/100 WBC (Bld) 0.8 % Normal 0.2-2.0 [facility] Comment on above: Performed By: #### C BC #### [facility] [address] [place] [address] Dr. Grzegorz Wang EO # 0.1 103/ul Normal 0.0-0.7 [facility] Comment on above: Performed By: #### C BC #### [facility] [address] [place] [address] Dr. Grzegorz Wang Eosinophils/100 WBC (Bld) 2.4 % Normal 0.9-7.0 [facility] Comment on above: Performed By: #### C BC #### [facility] [address] [place] [address] Dr. Grzegorz Wang Erythrocyte distribution width (RBC) [Ratio] 16.8 % Critically high 11.0-15.0 [facility] Comment on above: Performed By: #### C BC #### [facility] [address] [place] [address] Dr. Grzegorz Wang Hematocrit (Bld) [Volume fraction] 23.2 % Critically low 36.0-48.0 [facility] Comment on above: Performed By: #### C BC #### [facility] [address] [place] [address] Dr. Grzegorz Wang Hemoglobin (Bld) [Mass/Vol] 7.4 g/dL Critically low 12.0-16.0 [facility] Comment on above: Performed By: #### C BC #### [facility] [address] [address] [address] Grzegorz Wang IG # 0.05 10e3/ul Critically high 0.00-0.03 [facility] Comment on above: Performed By: #### C BC #### [facility] [address] [address] [address] Grzegorz Wang IG % 1.0 % Critically high 0.0-0.5 [facility] Comment on above: Performed By: #### C BC #### [facility] [address] [address] [address] Grzegorz Wang LYMPH # 1.4 103/ul Normal 1.2-3.8 [facility] Comment on above: Performed By: #### C BC #### [facility] [address] [place] [address] Dr. Grzegorz Wang Lymphocytes/100 WBC (Bld) 27.8 % Normal 20.5-60.0 [facility] Comment on above: Performed By: #### C BC #### [facility] [address] [address] [address] Grzegorz Wang MANUAL DIFF REQ NO Normal [facility] Comment on above: Performed By: #### C BC #### [facility] [address] [place] [address] Dr. Grzegorz Wang MCH (RBC) [Entitic mass] 25.6 pg Critically low 26.7-34.0 [facility] Comment on above: Performed By: #### C BC #### [facility] [address] [place] [address] Dr. Grzegorz Wang MCHC (RBC) [Mass/Vol] 31.9 g/dL Normal 29.9-35.2 [facility] Comment on above: Performed By: #### C BC #### [facility] [address] [place] [address] Dr. Grzegorz Wang MCV (RBC) [Entitic vol] 80.3 fL Critically low 81.0-99. 0 [facility] Comment on above: Performed By: #### C BC #### [facility] [address] [address] [address] Grzegorz Wang MONO # 0.6 103/ul Normal 0.3-0.8 [facility] Comment on above: Performed By: #### C BC #### [facility] [address] [address] [address] Grzegorz Wang Monocytes/100 WBC (Bld) 11.6 % Normal 1.7-12.0 [facility] Comment on above: Performed By: #### C BC #### [facility] [address] [place] [address] Dr. Grzegorz Wang NEUT # 2.8 103/ul Normal 1.4-6.5 [facility] Comment on above: Performed By: #### C BC #### [facility] [address] [place] [address] Dr. Grzegorz Wang Neutrophils/100 WBC (Bld) 56.4 % Normal 43.0-75.0 [facility] Comment on above: Performed By: #### C BC #### [facility] [address] [place] [address] Dr. Grzegorz Wang Platelet mean volume (Bld) [Entitic vol] 10.0 fL Normal 9.5-13.5 [facility] Comment on above: Performed By: #### C BC #### [facility] [address] [place] [address] Dr. Grzegorz Wang PLT 193 103/ul Normal 150-450 [facility] Comment on above: Performed By: #### C BC #### [facility] [address] [place] [address] Dr. Grzegorz Wang RBC 2.89 106/ul Critically low 4.20-5.40 [facility] Comment on above: Performed By: #### C BC #### [facility] [address] [place] [address] Dr. Grzegorz Wang WBC 4.9 103/ul Normal 4.0-11.0 [facility] Comment on above: Performed By: #### C BC #### [facility] [address] [address] [address] Grzegorz Wang PROF CHEM 8 (BAS METB)on Anion gap [Moles/Vol] 11.4 mmol/L Normal [facility] Comment on above: Performed By: #### A MY, LIPA #### [facility] [address] [place] [address] Dr. Grzegorz Wang Calcium [Mass/Vol] 8.3 mg/dL Critically low 8.5-10.1 [facility] Comment on above: Performed By: #### A MY, LIPA #### [facility] [address] [place] [address] Dr. Grzegorz Wang Chloride [Moles/Vol] 116 mmol/L Critically high 98-107 [facility] Comment on above: Performed By: #### A MY, LIPA #### [facility] [address] [place] [address] Dr. Grzegorz Wang CO2 [Moles/Vol] 21.1 mmol/L Normal 21.0-32.0 [facility] Comment on above: Performed By: #### A MY, LIPA #### [facility] [address] [place] [address] Dr. Grzegorz Wang Creatinine [Mass/Vol] 1.07 mg/dL Critically high 0.55-1.02 [facility] Comment on above: Performed By: #### A MY, LIPA #### [facility] [address] [place] [address] Dr. Grzegorz Wang EGFR-AF MOROCCAN >60 Normal >=60 [facility] Comment on above: Performed By: #### A MY, LIPA #### [facility] [address] [place] [address] Dr. Grzegorz Wang EGFR-NON AF MOROCCAN 50 mL/min/1.73m2 Critically low >=60 [facility] Comment on above: Performed By: #### A MY, LIPA #### [facility] [address] [place] [address] Dr. Grzegorz Wang Glucose [Mass/Vol] 90 mg/dL Normal 74-106 [facility] Comment on above: Performed By: #### A MY, LIPA #### [facility] [address] [place] [address] Dr. Grzegorz Wang Potassium [Moles/Vol] 3.5 mmol/L Normal 3.5-5.1 [facility] Comment on above: Performed By: #### A MY, LIPA #### [facility] [address] [place] [address] Dr. Grzegorz Wang Sodium [Moles/Vol] 145 mmol/L Normal 136-145 [facility] Comment on above: Performed By: #### A BRAYDEN LIPA #### [facility] [address] [place] [address] Dr. Grzegorz Wang Urea nitrogen [Mass/Vol] 59.0 mg/dL Critically high 7.0-18.0 [facility] Comment on above: Performed By: #### A BRAYDEN LIPA #### [facility] [address] [place] [address] Dr. Grzegorz Wang Urea nitrogen/Creatinine [Mass ratio] 55.1 mg/mg Normal [facility] Comment on above: Performed By: #### A BRAYDEN LIPA #### [facility] [address] [place] [address] Dr. Grzegorz Wang AMYLASEon 10-16-2021 Amylase [Catalytic activity/Vol] 41 U/L Normal 25-115 [facility] Comment on above: Performed By: #### A BRAYDEN LIPA #### [facility] [address] [place] [address] Dr. Grzegorz Wang CBC AUTO DIFFon 10-16-2021 BASO # 0.1 103/ul Normal 0.0-0.1 [facility] Comment on above: Performed By: #### A BRAYDEN LIPA #### [facility] [address] [place] [address] Dr. Grzegorz Wang Basophils/100 WBC (Bld) 0.7 % Normal 0.2-2.0 [facility] Comment on above: Performed By: #### A BRAYDEN LIPA #### [facility] [address] [place] [address] Dr. Grzegorz Wang EO # 0.2 103/ul Normal 0.0-0.7 [facility] Comment on above: Performed By: #### A BRAYDEN LIPA #### [facility] [address] [place] [address] Dr. Grzegorz Wang Eosinophils/100 WBC (Bld) 2.4 % Normal 0.9-7.0 [facility] Comment on above: Performed By: #### A BRAYDEN LIPA #### [facility] [address] [place] [address] Dr. Grzegorz Wang Erythrocyte distribution width (RBC) [Ratio] 17.1 % Critically high 11.0-15.0 [facility] Comment on above: Performed By: #### A BRAYDEN LIPA #### [facility] [address] [place] [address] Dr. Grzegorz Wang Hematocrit (Bld) [Volume fraction] 26.0 % Critically low 36.0-48.0 [facility] Comment on above: Performed By: #### A BRAYDEN LIPA #### [facility] [address] [place] [address] Dr. Grzegorz Wang Hemoglobin (Bld) [Mass/Vol] 8.4 g/dL Critically low 12.0-16.0 [facility] Comment on above: Performed By: #### A BRAYDEN LIPA #### [facility] [address] [place] [address] Dr. Grzegorz Wang IG # 0.03 10e3/ul Normal 0.00-0.03 [facility] Comment on above: Performed By: #### A BRAYDEN LIPA #### [facility] [address] [place] [address] Dr. Grzegorz Wang IG % 0.4 % Normal 0.0-0.5 [facility] Comment on above: Performed By: #### A BRAYDEN LIPA #### [facility] [address] [place] [address] Dr. Grzegorz Wang LYMPH # 1.9 103/ul Normal 1.2-3.8 [facility] Comment on above: Performed By: #### A BRAYDEN LIPA #### [facility] [address] [address] [address] Grzegorz Wang Lymphocytes/100 WBC (Bld) 27.3 % Normal 20.5-60.0 [facility] Comment on above: Performed By: #### A MY, LIPA #### [facility] [address] [place] [address] Dr. Grzegorz Wang MANUAL DIFF REQ NO Normal [facility] Comment on above: Performed By: #### A MY, LIPA #### [facility] [address] [place] [address] Dr. Grzegorz Wang MCH (RBC) [Entitic mass] 26.0 pg Critically low 26.7-34.0 [facility] Comment on above: Performed By: #### A BRAYDEN, LIPA #### [facility] [address] [place] [address] Dr. Grzegorz Wang MCHC (RBC) [Mass/Vol] 32.3 g/dL Normal 29.9-35.2 [facility] Comment on above: Performed By: #### A BRAYDEN, LIPA #### [facility] [address] [place] [address] Dr. Grzegorz Wang MCV (RBC) [Entitic vol] 80.5 fL Critically low 81.0-99. 0 [facility] Comment on above: Performed By: #### A BRAYDEN, LIPA #### [facility] [address] [place] [address] Dr. Grzegorz Wang MONO # 0.7 103/ul Normal 0.3-0.8 [facility] Comment on above: Performed By: #### A BRAYDEN, LIPA #### [facility] [address] [place] [address] Dr. Grzegorz Wang Monocytes/100 WBC (Bld) 10.5 % Normal 1.7-12.0 [facility] Comment on above: Performed By: #### A BRAYDEN, LIPA #### [facility] [address] [place] [address] Dr. Grzegorz Wang NEUT # 4.1 103/ul Normal 1.4-6.5 [facility] Comment on above: Performed By: #### A MY, LIPA #### [facility] [address] [address] [address] Grzegorz Wang Neutrophils/100 WBC (Bld) 58.7 % Normal 43.0-75.0 [facility] Comment on above: Performed By: #### A MY, LIPA #### [facility] [address] [place] [address] Dr. Grzegorz Wang Platelet mean volume (Bld) [Entitic vol] 10.4 fL Normal 9.5-13.5 [facility] Comment on above: Performed By: #### A BRAYDEN LIPA #### [facility] [address] [place] [address] Dr. Grzegorz Wang PLT 217 103/ul Normal 150-450 [facility] Comment on above: Performed By: #### A BRAYDEN LIPA #### [facility] [address] [place] [address] Dr. Grzegorz Wang RBC 3.23 106/ul Critically low 4.20-5.40 [facility] Comment on above: Performed By: #### A BRAYDEN LIPA #### [facility] [address] [place] [address] Dr. Grzegorz Wang WBC 7.1 103/ul Normal 4.0-11.0 [facility] Comment on above: Performed By: #### A BRAYDEN LIPA #### [facility] [address] [place] [address] Dr. Grzegorz Wang BASO # 0.0 103/ul Normal 0.0-0.1 [facility] Comment on above: Performed By: #### C BC #### [facility] [address] [place] [address] Dr. Grzegorz Wang Basophils/100 WBC (Bld) 0.5 % Normal 0.2-2.0 [facility] Comment on above: Performed By: #### C BC #### [facility] [address] [place] [address] Dr. Grzegorz Wang EO # 0.1 103/ul Normal 0.0-0.7 [facility] Comment on above: Performed By: #### C BC #### [facility] [address] [address] [address] Grzegorz Wang Eosinophils/100 WBC (Bld) 0.8 % Critically low 0.9-7.0 [facility] Comment on above: Performed By: #### C BC #### [facility] [address] [address] [address] Grzegorz Wang Erythrocyte distribution width (RBC) [Ratio] 16.8 % Critically high 11.0-15.0 [facility] Comment on above: Performed By: #### C BC #### [facility] [address] [place] [address] Dr. Grzegorz Wang Hematocrit (Bld) [Volume fraction] 19.5 % Critically low 36.0-48.0 [facility] Comment on above: Performed By: #### C BC #### [facility] [address] [place] [address] Dr. Grzegorz Wang Hemoglobin (Bld) [Mass/Vol] 6.0 g/dL Critically low 12.0-16.0 [facility] Comment on above: Result Comment: repe ated Performed By: #### C BC #### [facility] [address] [place] [address] Dr. Grzegorz Wang IG # 0.05 10e3/ul Critically high 0.00-0.03 [facility] Comment on above: Performed By: #### C BC #### [facility] [address] [place] [address] Dr. Grzegorz Wang IG % 0.6 % Critically high 0.0-0.5 [facility] Comment on above: Performed By: #### C BC #### [facility] [address] [place] [address] Dr. Grzegorz Wang LYMPH # 1.8 103/ul Normal 1.2-3.8 [facility] Comment on above: Performed By: #### C BC #### [facility] [address] [place] [address] Dr. Grzegorz Wang Lymphocytes/100 WBC (Bld) 21.6 % Normal 20.5-60.0 [facility] Comment on above: Performed By: #### C BC #### [facility] [address] [place] [address] Dr. Grzegorz Wang MANUAL DIFF REQ NO Normal [facility] Comment on above: Performed By: #### C BC #### [facility] [address] [place] [address] Dr. Grzegorz Wang MCH (RBC) [Entitic mass] 23.4 pg Critically low 26.7-34.0 [facility] Comment on above: Performed By: #### C BC #### [facility] [address] [place] [address] Dr. Grzegorz Wang MCHC (RBC) [Mass/Vol] 30.6 g/dL Normal 29.9-35.2 [facility] Comment on above: Performed By: #### C BC #### [facility] [address] [place] [address] Dr. Grzegorz Wang MCV (RBC) [Entitic vol] 76.6 fL Critically low 81.0-99. 0 [facility] Comment on above: Performed By: #### C BC #### [facility] [address] [place] [address] Dr. Grzegorz Wang MONO # 0.6 103/ul Normal 0.3-0.8 [facility] Comment on above: Performed By: #### C BC #### [facility] [address] [place] [address] Dr. Grzegorz Wang Monocytes/100 WBC (Bld) 7.3 % Normal 1.7-12.0 [facility] Comment on above: Performed By: #### C BC #### [facility] [address] [place] [address] Dr. Grzegorz Wang NEUT # 5.9 103/ul Normal 1.4-6.5 [facility] Comment on above: Performed By: #### C BC #### [facility] [address] [place] [address] Dr. Grzegorz Wang Neutrophils/100 WBC (Bld) 69.2 % Normal 43.0-75.0 [facility] Comment on above: Performed By: #### C BC #### [facility] [address], [place] [address] Dr. Grzegorz Wang Platelet mean volume (Bld) [Entitic vol] 10.5 fL Normal 9.5-13.5 [facility] Comment on above: Performed By: #### C BC #### [facility] [address] [address] [address] Grzegorz Wang PLT 288 103/ul Normal 150-450 [facility] Comment on above: Performed By: #### C BC #### [facility] [address], [place] [address] Dr. Grzegorz Wang RBC 2.52 106/ul Critically low 4.20-5.40 [facility] Comment on above: Performed By: #### C BC #### [facility] [address], [place] [address] Dr. Grzegorz Wang WBC 8.5 103/ul Normal 4.0-11.0 [facility] Comment on above: Performed By: #### C BC #### [facility] [address], [place] [address] ABD/PELVIS WO CONon [...] LYNN OLSON Date: 2021-10-16 13:53 Normal [facility] Covid-19 PCR (CVDTB)on SARS-CoV-2 (COVID-19) RNA SIOBHAN+probe Ql (Unsp spec) Not detected Normal NOT DETECTED [facility] Comment on above: Result Comment: When diagnostic [...] for this test is supported by the [place] of Health and Human Service's declaration that [...] used). Performed By: #### E RUR #### [facility] [address] [place] [address] Dr. Grzegorz Wang ER URINE PROFILEon 2 Bilirubin Ql (U) Negative Normal NEGATIVE [facility] Comment on above: Performed By: #### A BRAYDEN LIPA #### [facility] [address] [place] [address] Dr. Grzegorz Wang Clarity (U) CLEAR Normal CLEAR [facility] Comment on above: Performed By: #### A BRAYDEN LIPA #### [facility] [address] [place] [address] Dr. Grzegorz Wang Color (U) LT. YELLOW Normal YELLOW [facility] Comment on above: Performed By: #### A BRAYDEN, LIPA #### [facility] [address] [place] [address] Dr. Grzegorz Wang ERUAHD A micrscopic examination will be performed if indicated. Normal [facility] Comment on above: Performed By: #### A BRAYDEN LIPA #### [facility] [address] [address] [address] Grzegorz Wang Glucose Ql (U) Negative Normal NEGATIVE [facility] Comment on above: Performed By: #### A MY, LIPA #### [facility] [address] [address] [address] Grzegorz Wang Hemoglobin Ql (U) SMALL Abnormal NEGATIVE [facility] Comment on above: Performed By: #### A MY, LIPA #### [facility] [address] [place] [address] Dr. Grzegorz Wang Ketones Ql (U) Negative Normal NEGATIVE [facility] Comment on above: Performed By: #### A MY, LIPA #### [facility] [address] [place] [address] Dr. Grzegorz Wang LEUKOCYTES TRACE Abnormal NEGATIVE [facility] Comment on above: Performed By: #### A MY, LIPA #### [facility] [address] [place] [address] Dr. Grzegorz Wang Nitrite Ql (U) Negative Normal NEGATIVE [facility] Comment on above: Performed By: #### A MY, LIPA #### [facility] [address] [place] [address] Dr. Grzegorz Wang pH (U) 5.5 [pH] Normal 5-9 [facility] Comment on above: Performed By: #### A MY, LIPA #### [facility] [address] [place] [address] Dr. Grzegorz Wang SPEC GRAVITY 1.005 Normal 1.005-<=1.0 25 [facility] Comment on above: Performed By: #### A MY, LIPA #### [facility] [address] [place] [address] Dr. Grzegorz Wang UA PROTEIN Negative Normal NEGATIVE/ TRACE [facility] Comment on above: Performed By: #### A MY, LIPA #### [facility] [address] [place] [address] Dr. Grzegorz Wang UR MICRO IND INDICATED Normal [facility] Comment on above: Performed By: #### A MY, LIPA #### [facility] [address] [place] [address] Dr. Grzegorz Wang Urobilinogen Qn (U) 0.2 {Lidya'U}/dL Normal 0.2 - 1. 0 [facility] Comment on above: Performed By: #### A MY, LIPA #### [facility] [address] [place] [address] Dr. Grzegorz Wang LIPASEon 10-16-2021 Lipase [Catalytic activity/Vol] 77.0 U/L Normal 73.0-393.0 [facility] Comment on above: Performed By: #### A BRAYDEN LIPA #### [facility] [address] [place] [address] Dr. Grzegorz Wang OCC BLD IMMUNO SCREENon OCCULT BLOOD Positive Abnormal NEGATIVE [facility] Comment on above: Performed By: #### A BRAYDEN LIPA #### [facility] [address] [place] [address] Dr. Grzegorz Wang PROF 14(COMP METB)on 022 Albumin [Mass/Vol] 3.4 g/dL Normal 3.4-5.0 [facility] Comment on above: Performed By: #### C BC #### [facility] [address] [place] [address] Dr. Grzegorz Wang Albumin/Globulin [Mass ratio] 1.2 {ratio} Normal [facility] Comment on above: Performed By: #### C BC #### [facility] [address] [place] [address] Dr. Grzegorz Wang ALP [Catalytic activity/Vol] 77 U/L Normal 46-116 [facility] Comment on above: Performed By: #### C BC #### [facility] [address] [place] [address] Dr. Grzegorz Wang ALT [Catalytic activity/Vol] 18 U/L Normal 14-59 [facility] Comment on above: Performed By: #### C BC #### [facility] [address] [place] [address] Dr. Grzegorz Wang Anion gap [Moles/Vol] 15.3 mmol/L Normal [facility] Comment on above: Performed By: #### C BC #### [facility] [address] [address] [address] Grzegorz Wang AST [Catalytic activity/Vol] 17 U/L Normal 15-37 [facility] Comment on above: Performed By: #### C BC #### [facility] [address] [address] [address] Grzegorz Wang Bilirubin [Mass/Vol] 0.4 mg/dL Normal 0.2-1.0 [facility] Comment on above: Performed By: #### C BC #### [facility] [address] [address] [address] Grzegorz Wang Calcium [Mass/Vol] 8.5 mg/dL Normal 8.5-10.1 [facility] Comment on above: Performed By: #### C BC #### [facility] [address] [address] [address] Grzegorz Wang Chloride [Moles/Vol] 104 mmol/L Normal 98-107 [facility] Comment on above: Performed By: #### C BC #### [facility] [address] [address] [address] Grzegorz Wang CO2 [Moles/Vol] 21.2 mmol/L Normal 21.0-32.0 [facility] Comment on above: Performed By: #### C BC #### [facility] [address] [address] [address] Grzegorz Wang Creatinine [Mass/Vol] 1.68 mg/dL Critically high 0.55-1.02 [facility] Comment on above: Performed By: #### C BC #### [facility] [address] [address] [address] Grzegorz Wang EGFR-AF MOROCCAN 36 mL/min/1.73m2 Critically low >=60 [facility] Comment on above: Performed By: #### C BC #### [facility] [address] [address] [address] Grzegorz Wang EGFR-NON AF MOROCCAN 30 mL/min/1.73m2 Critically low >=60 [facility] Comment on above: Performed By: #### C BC #### [facility] [address] [address] [address] Grzegorz Wang Globulin (S) [Mass/Vol] 2.8 g/dL Normal [facility] Comment on above: Performed By: #### C BC #### [facility] [address] [address] [address] Grzegorz Wang Glucose [Mass/Vol] 101 mg/dL Normal 74-106 [facility] Comment on above: Performed By: #### C BC #### [facility] [address] [address] [address] Grzegorz Wang Potassium [Moles/Vol] 3.5 mmol/L Normal 3.5-5.1 [facility] Comment on above: Performed By: #### C BC #### [facility] [address] [address] [address] Grzegorz Wang Protein [Mass/Vol] 6.2 g/dL Critically low 6.4-8.2 [facility] Comment on above: Performed By: #### C BC #### [facility] [address] [address] [address] Grzegorz Wang Sodium [Moles/Vol] 137 mmol/L Normal 136-145 [facility] Comment on above: Performed By: #### C BC #### [facility] [address] [address] [address] Grzegorz Wang Urea nitrogen [Mass/Vol] 83.0 mg/dL Critically high 7.0-18.0 [facility] Comment on above: Result Comment: repe ated Performed By: #### C BC #### [facility] [address] [address] [address] Grzegorz Wang Urea nitrogen/Creatinine [Mass ratio] 49.4 mg/mg Normal [facility] Comment on above: Performed By: #### C BC #### [facility] [address] [address] [address] Grzegorz Wang PROTIMEon 10-16-2021 INR Coag (PPP) [Relative time] 0.99 {INR} Normal [facility] Comment on above: Performed By: #### P T, PTT #### [facility] [address] [place] [address] Dr. Grzegorz Wang INR GUIDELINES SEE BELOW Normal [facility] Comment on above: Result Comment: DENTON RED INR: 2.0 - 3.0 CONDITIONS NOT LISTED BELOW 2.5 - 3.5 FOR PROSTHETIC HEART VALVE REPLACEMENT 2.5 - 3.5 RECURRENT THROMBOSIS Performed By: #### P T, PTT #### [facility] [address] [place] [address] Dr. Grzegorz Wang PT Coag (PPP) [Time] 10.7 s Normal 9.0-11.6 [facility] Comment on above: Performed By: #### P T, PTT #### [facility] [address] [place] [address] Dr. Grzegorz Wang PTTon 10-16-2021 aPTT Coag (Bld) [Time] 23.5 s Normal 22.3-36.2 [facility] Comment on above: Performed By: #### P T, PTT #### [facility] [address] [place] [address] Dr. Grzegorz Wang TYPE AND SCREENon 10-16-2021 TYPE AND SCREEN Negative Normal [facility] Comment on above: Performed By: #### C BC #### [facility] [address] [place] [address] Dr. Grzegorz Wang URINE MICROSCOPIC ONLYon BACTERIA NONE SEEN Normal NONE SEEN [facility] Comment on above: Performed By: #### A MY, LIPA #### [facility] [address] [place] [address] Dr. Grzegorz Wang Bacteria identified Cx Nom (U) NOT INDICATED Normal [facility] Comment on above: Performed By: #### A MY, LIPA #### [facility] [address] [place] [address] Dr. Grzegorz Wang CAST NONE SEEN Normal NONE SEEN [facility] Comment on above: Performed By: #### A MY, LIPA #### [facility] [address] [place], [place] [id number] Dr. Grzegorz Wang Crystals LM Nom (Urine sed) NONE SEEN Normal NONE SEEN [facility] Comment on above: Performed By: #### A MY, LIPA #### [facility] [address] [place] [address] Dr. Grzegorz Wang Epithelial cells LM Ql (Urine sed) RARE Normal NONE SEEN /RARE [facility] Comment on above: Performed By: #### A MY, LIPA #### [facility] [address] [place] [address] Dr. Grzegorz Wang MUCOUS NONE SEEN Normal NONE SEEN [facility] Comment on above: Performed By: #### A MY, LIPA #### [facility] [address] [place] [address] Dr. Grzegorz Wang RBC NONE SEEN Abnormal 0-2 [facility] Comment on above: Performed By: #### A MY, LIPA #### [facility] [address] [place] [address] Dr. Grzegorz Wang WBC NONE SEEN Normal NONE SEEN [facility] Comment on above: Performed By: #### A BRAYDEN LIPA #### [facility] [address] [place] [address] Dr. Grzegorz Wang BNPon 09-02-2021 Natriuretic peptide B (Bld) [Mass/Vol] 140.0 pg/mL Normal <=900.0 [facility] Comment on above: Performed By: #### C BC #### [facility] [address] [place] [address] Dr. Grzegorz Wang CARDIAC BAMBI ADMITon 022 CK [Catalytic activity/Vol] 121 U/L Normal 26-192 [facility] Comment on above: Performed By: #### C BC #### [facility] [address] [place] [address] Dr. Grzegorz Wang CK.MB [Mass/Vol] 2.44 ng/mL Normal <=3.60 [facility] Comment on above: Performed By: #### C BC #### [facility] [address] [place] [address] Dr. Grzegorz Wang HSTROP 9.8 pg/mL Normal 4.0-51.3 [facility] Comment on above: Result Comment: CUT- OFF POINTS HAVE BEEN ESTABLISHED BASED ON THE FOURTH UNIVERSAL DEFINITIONS OF MYOCARDIAL INFARCTION. THE UPPER REFERENCE LIMIT (URL) OF TROPONIN, DEFINED THE 99TH PERCENTILE OF cTnI DISTRIBUTION IN A REFERENCE POPULATION, HAS BEEN CONFIRMED THE DECISION THRESHOLD FOR CA DIAGNOSIS. Performed By: #### C BC #### [facility] [address] [address] [address] Grzegorz Wang MITZI 109 ng/mL Critically high 9-82 [facility] Comment on above: Performed By: #### C BC #### [facility] [address] [place] [address] Dr. Grzegorz Wang CBC AUTO DIFFon 09-02-2021 BASO # 0.0 103/ul Normal 0.0-0.1 [facility] Comment on above: Performed By: #### C BC #### [facility] [address] [place] [address] Dr. Grzegorz Wang Basophils/100 WBC (Bld) 0.5 % Normal 0.2-2.0 [facility] Comment on above: Performed By: #### C BC #### [facility] [address] [place] [address] Dr. Grzegorz Wang EO # 0.1 103/ul Normal 0.0-0.7 [facility] Comment on above: Performed By: #### C BC #### [facility] [address] [place] [address] Dr. Grzegorz Wang Eosinophils/100 WBC (Bld) 3.1 % Normal 0.9-7.0 [facility] Comment on above: Performed By: #### C BC #### [facility] [address] [place] [address] Dr. Grzegorz Wang Erythrocyte distribution width (RBC) [Ratio] 16.0 % Critically high 11.0-15.0 [facility] Comment on above: Performed By: #### C BC #### [facility] [address] [place] [address] Dr. Grzegorz Wang Hematocrit (Bld) [Volume fraction] 32.0 % Critically low 36.0-48.0 [facility] Comment on above: Performed By: #### C BC #### [facility] [address] [place] [address] Dr. Grzegorz Wang Hemoglobin (Bld) [Mass/Vol] 10.1 g/dL Critically low 12.0-16.0 [facility] Comment on above: Performed By: #### C BC #### [facility] [address] [place] [address] Dr. Grzegorz Wang IG # 0.01 10e3/ul Normal 0.00-0.03 [facility] Comment on above: Performed By: #### C BC #### [facility] [address] [place] [address] Dr. Grzegorz Wang IG % 0.3 % Normal 0.0-0.5 [facility] Comment on above: Performed By: #### C BC #### [facility] [address] [place] [address] Dr. Grzegorz Wang LYMPH # 1.7 103/ul Normal 1.2-3.8 [facility] Comment on above: Performed By: #### C BC #### [facility] [address] [place] [address] Dr. Grzegorz Wang Lymphocytes/100 WBC (Bld) 43.1 % Normal 20.5-60.0 [facility] Comment on above: Performed By: #### C BC #### [facility] [address] [place] [address] Dr. Grzegorz Wang MANUAL DIFF REQ NO Normal [facility] Comment on above: Performed By: #### C BC #### [facility] [address] [place] [address] Dr. Grzegorz Wang MCH (RBC) [Entitic mass] 23.9 pg Critically low 26.7-34.0 [facility] Comment on above: Performed By: #### C BC #### [facility] [address] [place] [address] Dr. Grzegorz Wang MCHC (RBC) [Mass/Vol] 31.6 g/dL Normal 29.9-35.2 [facility] Comment on above: Performed By: #### C BC #### [facility] [address] [address] [address] Grzegorz Wang MCV (RBC) [Entitic vol] 75.8 fL Critically low 81.0-99. 0 [facility] Comment on above: Performed By: #### C BC #### [facility] [address] [address] [address] Grzegorz Wang MONO # 0.4 103/ul Normal 0.3-0.8 [facility] Comment on above: Performed By: #### C BC #### [facility] [address] [address] [address] Grzegorz Wang Monocytes/100 WBC (Bld) 9.7 % Normal 1.7-12.0 [facility] Comment on above: Performed By: #### C BC #### [facility] [address] [place] [address] Dr. Grzegorz Wang NEUT # 1.7 103/ul Normal 1.4-6.5 [facility] Comment on above: Performed By: #### C BC #### [facility] [address] [place] [address] Dr. Grzegorz Wang Neutrophils/100 WBC (Bld) 43.3 % Normal 43.0-75.0 [facility] Comment on above: Performed By: #### C BC #### [facility] [address] [place] [address] Dr. Grzegorz Wang Platelet mean volume (Bld) [Entitic vol] 10.1 fL Normal 9.5-13.5 [facility] Comment on above: Performed By: #### C BC #### [facility] [address] [place] [address] Dr. Grzegorz Wang PLT 179 103/ul Normal 150-450 [facility] Comment on above: Performed By: #### C BC #### [facility] [address] [address] [address] Grzegorz Wang RBC 4.22 106/ul Normal 4.20-5.40 [facility] Comment on above: Performed By: #### C BC #### [facility] [address], [place] [address] Dr. Grzegorz Wang WBC 3.8 103/ul Critically low 4.0-11.0 [facility] Comment on above: Performed By: #### C BC #### [facility] [address], [place] [address] CSPINE WO CONon [...] JEAN-PIERRE GIRALDO Date: 2021-09-02 19:33 Normal [facility] CT STROKE HEAD WOon 09-03-[address] [...] JEAN-PIERRE GIRALDO Date: 2021-09-02 19:29 Normal [facility] Covid-19 PCR (CVDTBH)on 08-12 SARS-CoV-2 (COVID-19) RNA SIOBHAN+probe Ql (Unsp spec) Detected Critically abnormal NOT DETECTED [facility] Comment on above: Result Comment: This test is not yet approved or cleared by the [place] FDA. When there are no FDA-approved or cleared tests available, and other criteria are met, FDA can make tests available under an emergency access mechanism called an Emergency Use Authorization (EUA). The EUA for this test is supported by the Appeals Specialist of Health and Human Service's declaration that [...] used). Performed By: #### C BC #### [facility] [address] [place] [address] Dr. Grzegorz Wang DRUG SCREEN RAPID (URINE)on 09-02-2021 AMP Negative Normal NEGATIVE [facility] Comment on above: Performed By: #### E RUR #### [facility] [address] [place] [address] Dr. Grzegorz Wang BAR Negative Normal NEGATIVE [facility] Comment on above: Performed By: #### E RUR #### [facility] [address] [place] [address] Dr. Grzegorz Wang BUP Negative Normal NEGATIVE [facility] Comment on above: Performed By: #### E RUR #### [facility] [address] [place] [address] Dr. Grzegorz Wang BZO Negative Normal NEGATIVE [facility] Comment on above: Performed By: #### E RUR #### [facility] [address] [place] [address] Dr. Grzegorz Wang MITZY Negative Normal NEGATIVE [facility] Comment on above: Performed By: #### E RUR #### [facility] [address] [place], [place] [id number] Dr. Grzegorz Wang CUT-OFFS SEE BELOW Normal [facility] Comment on above: Result Comment: AMP (Amphetamine): 500ng/mL, BAR (Barbituates): 200 ng/mL, BZO (Benzodiazepines): 150 ng/mL, BUP (Buprenorphine): 10 ng/mL, MITZY (Cocaine): 150 ng/mL, mAMP (Methamphetamine): 500 ng/mL, MTD (Methadone): 200 ng/mL, OPI (Opiates): 100 ng/mL, OXY (Oxycodone): 100 ng/mL, PCP (Phencyclidine): 25 ng/mL, PPX (Propoxyphene): 300 ng/mL, THC (Cannabinoids): 50 ng/mL, TCA (Trycyclic Antidepressants): 300 ng/mL Performed By: #### E RUR #### [facility] [address] [place] [address] Dr. Grzegorz Wang DRUG CUT HEADER DRUG CLASS TEST SYSTEM CUT-OFF CONCENTRATIONS ARE FOLLOWS: Normal [facility] Comment on above: Performed By: #### E RUR #### [facility] [address] [place] [address] Dr. Grzegorz Wang mAMP Negative Normal NEGATIVE [facility] Comment on above: Performed By: #### E RUR #### [facility] [address] [place] [address] Dr. Grzegorz Wang MTD Negative Normal NEGATIVE [facility] Comment on above: Performed By: #### E RUR #### [facility] [address] [place] [address] Dr. Grzegorz Wang OPI Negative Normal NEGATIVE [facility] Comment on above: Performed By: #### E RUR #### [facility] [address] [place] [address] Dr. Grzegorz Wang OXY Negative Normal NEGATIVE [facility] Comment on above: Performed By: #### E RUR #### [facility] [address] [place] [address] Dr. Grzegorz Wang PCP Negative Normal NEGATIVE [facility] Comment on above: Performed By: #### E RUR #### [facility] [address] [place] [address] Dr. Grzegorz Wang PPX Negative Normal NEGATIVE [facility] Comment on above: Performed By: #### E RUR #### [facility] [address] [place] [address] Dr. Grzegorz Wang TCA Positive Abnormal NEGATIVE [facility] Comment on above: Performed By: #### E RUR #### [facility] [address] [place] [address] Dr. Grzegorz Wang THC Negative Normal NEGATIVE [facility] Comment on above: Performed By: #### E RUR #### [facility] [address] [place] [address] Dr. Grzegorz Wang LACTATE/LACTIC ACIDon 2021 Lactate [Moles/Vol] 0.7 mmol/L Normal 0.4-1.9 [facility] Comment on above: Performed By: #### E RUR #### [facility] [address] [place] [address] Dr. Grzegorz Wang PROF 14(COMP METB)on 022 Albumin [Mass/Vol] 3.1 g/dL Critically low 3.4-5.0 [facility] Comment on above: Performed By: #### C BC #### [facility] [address] [place] [address] Dr. Grzegorz Wang Albumin/Globulin [Mass ratio] 1.0 {ratio} Normal [facility] Comment on above: Performed By: #### C BC #### [facility] [address] [place] [address] Dr. Grzegorz Wang ALP [Catalytic activity/Vol] 81 U/L Normal 46-116 [facility] Comment on above: Performed By: #### C BC #### [facility] [address] [place] [address] Dr. Grzegorz Wang ALT [Catalytic activity/Vol] 21 U/L Normal 14-59 [facility] Comment on above: Performed By: #### C BC #### [facility] [address] [place] [address] Dr. Grzegorz Wang Anion gap [Moles/Vol] 11.9 mmol/L Normal [facility] Comment on above: Performed By: #### C BC #### [facility] [address] [address] Dr. Grzegorz Wang AST [Catalytic activity/Vol] 21 U/L Normal 15-37 [facility] Comment on above: Performed By: #### C BC #### [facility] [address] [address] [address] Grzegorz Wang Bilirubin [Mass/Vol] 0.5 mg/dL Normal 0.2-1.0 [facility] Comment on above: Performed By: #### C BC #### [facility] [address] [address] [address] Grzegorz Wang Calcium [Mass/Vol] 8.3 mg/dL Critically low 8.5-10.1 [facility] Comment on above: Performed By: #### C BC #### [facility] [address] [address] [address] Grzegorz Wang Chloride [Moles/Vol] 100 mmol/L Normal 98-107 [facility] Comment on above: Performed By: #### C BC #### [facility] [address] [address] [address] Grzegorz Wang CO2 [Moles/Vol] 25.6 mmol/L Normal 21.0-32.0 [facility] Comment on above: Performed By: #### C BC #### [facility] [address] [address] [address] Grzegorz Wang Creatinine [Mass/Vol] 1.39 mg/dL Critically high 0.55-1.02 [facility] Comment on above: Performed By: #### C BC #### [facility] [address] [address] [address] Grzegorz Wang EGFR-AF MOROCCAN 45 mL/min/1.73m2 Critically low >=60 [facility] Comment on above: Performed By: #### C BC #### [facility] [address] [address] [address] Grzegorz Wang EGFR-NON AF MOROCCAN 37 mL/min/1.73m2 Critically low >=60 [facility] Comment on above: Performed By: #### C BC #### [facility] [address] [address] [address] Grzegorz Wang Globulin (S) [Mass/Vol] 3.1 g/dL Normal [facility] Comment on above: Performed By: #### C BC #### [facility] [address] [address] [address] Grzegorz Wang Glucose [Mass/Vol] 96 mg/dL Normal 74-106 [facility] Comment on above: Performed By: #### C BC #### [facility] [address] [address] [address] Grzegorz Wang Potassium [Moles/Vol] 3.5 mmol/L Normal 3.5-5.1 [facility] Comment on above: Performed By: #### C BC #### [facility] [address] [address] [address] Grzegorz Wang Protein [Mass/Vol] 6.2 g/dL Critically low 6.4-8.2 [facility] Comment on above: Performed By: #### C BC #### [facility] [address] [address] [address] Grzegorz Wang Sodium [Moles/Vol] 134 mmol/L Critically low 136-145 [facility] Comment on above: Performed By: #### C BC #### [facility] [address] [address] [address] Grzegorz Wang Urea nitrogen [Mass/Vol] 33.0 mg/dL Critically high 7.0-18.0 [facility] Comment on above: Performed By: #### C BC #### [facility] [address] [address] [address] Grzegorz Wang Urea nitrogen/Creatinine [Mass ratio] 23.7 mg/mg Normal [facility] Comment on above: Performed By: #### C BC #### [facility] [address] [address] [address] Grzegorz Wang PROTIMEon 09-02-2021 INR Coag (PPP) [Relative time] {INR} Normal [facility] Comment on above: Performed By: #### A BRAYDEN, LIPA #### [facility] [address] [place], [place] [address] Dr. Grzegorz Wang INR GUIDELINES SEE BELOW Normal [facility] Comment on above: Result Comment: DENTON RED INR: 2.0 - 3.0 CONDITIONS NOT LISTED BELOW 2.5 - 3.5 FOR PROSTHETIC HEART VALVE REPLACEMENT 2.5 - 3.5 RECURRENT THROMBOSIS Performed By: #### A LUCHO OWENA #### [facility] [address], [place] [address] Dr. Grzegorz Wang PT Coag (PPP) [Time] 10.0 s Normal 9.0-11.6 [facility] Comment on above: Performed By: #### A BRAYDEN LIPA #### [facility] [address] [address] [address] Grzegorz Wang PTTon 09-02-2021 aPTT Coag (Bld) [Time] 32.1 s Normal 22.3-36.2 [facility] Comment on above: Performed By: #### A BRAYDEN LIPA #### [facility] [address] [place], [place] [address] Dr. Grzegorz Wang XR CHEST 1 Von [...] NATACHA CERNA Date: 2021-09-02 19:18 Normal [facility] XR hand RT min 3V*on 022 XR hand RT min 3V* [facility] [employer] Other XR hand RT min 3V* [facility] [employer] Other XR hand RT min 3V* [address] [place] [address] [employer] Other XR hand RT min 3V* [place] [address] [employer] Other XR hand RT min 3V* XRay Report [employer] Other XR hand RT min 3V* Signed [employer] Other XR hand RT min 3V* Patient: Ozzie Gifford MR#: [id number] [employer] Other XR hand RT min 3V* [address] [employer] Other XR hand RT min 3V* : 1950 Acct:[id number] [employer] Other XR hand RT min 3V* Age/Sex: 71 / F ADM Date: 08/02/21 [employer] Other XR hand RT min 3V* Loc: [facility] Room: Type : [facility] [employer] Other XR hand RT min 3V* Attending Dr: Neeraj Arrington MD [employer] Other XR hand RT min 3V* Copies to: Susie Arrington MD [employer] Other XR hand RT min 3V* Ordering Provider: Susie Arrington MD [employer] Other XR hand RT min 3V* Date of Service: 08/02/21 [employer] Other XR hand RT min 3V* XR/XR hand RT min 3V*: Closed nondisplaced fracture of proximal phalanx [employer] Other XR hand RT min 3V* of right mi [employer] Other XR hand RT min 3V* 4 viewsRIGHT hand plain film [employer] Other XR hand RT min 3V* COMPARISON:07/12/21 [employer] Other XR hand RT min 3V* HISTORY:Status post RIGHT long finger proximal phalanx fracture [employer] Other XR hand RT min 3V* No bony alignment stable. No interval healing. Extensive degeneration. [employer] Other XR hand RT min 3V* XR/XR hand RT min 3V* [employer] Other XR hand RT min 3V* IMPRESSION:Stable findings [employer] Other XR hand RT min 3V* Impression dictated by: Husam Martinez M.D.08/02/2021 12:13 PM [employer] Other XR hand RT min 3V* Dictation Location: [place] [address] [employer] Other XR hand RT min 3V* Transcribed By: [facility] 08/02/21 1213 [employer] Other XR hand RT min 3V* Dictated By: Husam Martinez DO 08/02/21 1210 [employer] Other XR hand RT min 3V* Signed By: [employer] Other XR hand RT min 3V* 08/02/21 1213 [facility] [employer] Other BNPon 07-29-2021 Natriuretic peptide B (Bld) [Mass/Vol] 192.0 pg/mL Normal <=900.0 [facility] Comment on above: Performed By: #### E RUR #### [facility] [address] [place] [address] Dr. Grzegorz Wang CARDIAC BAMBI ADMITon 022 CK [Catalytic activity/Vol] 82 U/L Normal 26-192 [facility] Comment on above: Performed By: #### E RUR #### [facility] [address] [address] [address] Grzegorz Wang CK.MB [Mass/Vol] 2.40 ng/mL Normal <=3.60 [facility] Comment on above: Performed By: #### E RUR #### [facility] [address] [address] [address] Grzegorz Wang HSTROP 4.7 pg/mL Normal 4.0-51.3 [facility] Comment on above: Result Comment: CUT- OFF POINTS HAVE BEEN ESTABLISHED BASED ON THE FOURTH UNIVERSAL DEFINITIONS OF MYOCARDIAL INFARCTION. THE UPPER REFERENCE LIMIT (URL) OF TROPONIN, DEFINED THE 99TH PERCENTILE OF cTnI DISTRIBUTION IN A REFERENCE POPULATION, HAS BEEN CONFIRMED THE DECISION THRESHOLD FOR CA DIAGNOSIS. Performed By: #### E RUR #### [facility] [address] [place] [address] Dr. Grzegorz Wang MITZI 70 ng/mL Normal 9-82 [facility] Comment on above: Performed By: #### E RUR #### [facility] [address] [place] [address] Dr. Grzegorz Wang CBC AUTO DIFFon 07-29-2021 BASO # 0.0 103/ul Normal 0.0-0.1 [facility] Comment on above: Performed By: #### E RUR #### [facility] [address] [place] [address] Dr. Grzegorz Wang Basophils/100 WBC (Bld) 0.7 % Normal 0.2-2.0 [facility] Comment on above: Performed By: #### E RUR #### [facility] [address] [place] [address] Dr. Grzegorz Wang EO # 0.2 103/ul Normal 0.0-0.7 [facility] Comment on above: Performed By: #### E RUR #### [facility] [address] [place] [address] Dr. Grzegorz Wang Eosinophils/100 WBC (Bld) 4.1 % Normal 0.9-7.0 [facility] Comment on above: Performed By: #### E RUR #### [facility] [address] [place] [address] Dr. Grzegorz Wang Erythrocyte distribution width (RBC) [Ratio] 15.7 % Critically high 11.0-15.0 [facility] Comment on above: Performed By: #### E RUR #### [facility] [address] [place] [address] Dr. Grzegorz Wang Hematocrit (Bld) [Volume fraction] 32.6 % Critically low 36.0-48.0 [facility] Comment on above: Performed By: #### E RUR #### [facility] [address] [place] [address] Dr. Grzegorz Wang Hemoglobin (Bld) [Mass/Vol] 9.9 g/dL Critically low 12.0-16.0 [facility] Comment on above: Performed By: #### E RUR #### [facility] [address] [place] [address] Dr. Grzegorz Wang IG # 0.02 10e3/ul Normal 0.00-0.03 [facility] Comment on above: Performed By: #### E RUR #### [facility] [address] [place] [address] Dr. Grzegorz Wang IG % 0.3 % Normal 0.0-0.5 [facility] Comment on above: Performed By: #### E RUR #### [facility] [address] [place] [address] Dr. Grzegorz Wang LYMPH # 1.7 103/ul Normal 1.2-3.8 [facility] Comment on above: Performed By: #### E RUR #### [facility] [address] [place] [address] Dr. Grzegorz Wang Lymphocytes/100 WBC (Bld) 28.0 % Normal 20.5-60.0 [facility] Comment on above: Performed By: #### E RUR #### [facility] [address] [place] [address] Dr. Grzegorz Wang MANUAL DIFF REQ NO Normal [facility] Comment on above: Performed By: #### E RUR #### [facility] [address] [place] [address] Dr. Grzegorz Wang MCH (RBC) [Entitic mass] 23.9 pg Critically low 26.7-34.0 [facility] Comment on above: Performed By: #### E RUR #### [facility] [address] [place] [address] Dr. Grzegorz Wang MCHC (RBC) [Mass/Vol] 30.4 g/dL Normal 29.9-35.2 [facility] Comment on above: Performed By: #### E RUR #### [facility] [address] [place] [address] Dr. Grzegorz Wang MCV (RBC) [Entitic vol] 78.7 fL Critically low 81.0-99. 0 [facility] Comment on above: Performed By: #### E RUR #### [facility] [address] [place] [address] Dr. Grzegorz Wang MONO # 0.6 103/ul Normal 0.3-0.8 [facility] Comment on above: Performed By: #### E RUR #### [facility] [address] [place] [address] Dr. Grzegorz Wang Monocytes/100 WBC (Bld) 10.4 % Normal 1.7-12.0 [facility] Comment on above: Performed By: #### E RUR #### [facility] [address] [place] [address] Dr. Grzegorz Wang NEUT # 3.3 103/ul Normal 1.4-6.5 [facility] Comment on above: Performed By: #### E RUR #### [facility] [address] [place] [address] Dr. Grzegorz Wang Neutrophils/100 WBC (Bld) 56.5 % Normal 43.0-75.0 [facility] Comment on above: Performed By: #### E RUR #### [facility] [address] [place] [address] Dr. Grzegorz Wang Platelet mean volume (Bld) [Entitic vol] 10.2 fL Normal 9.5-13.5 [facility] Comment on above: Performed By: #### E RUR #### [facility] [address] [place] [address] Dr. Grzegorz Wang PLT 216 103/ul Normal 150-450 [facility] Comment on above: Performed By: #### E RUR #### [facility] [address] [place] [address] Dr. Grzegorz Wang RBC 4.14 106/ul Critically low 4.20-5.40 [facility] Comment on above: Performed By: #### E RUR #### [facility] [address] [place] [address] Dr. Grzegroz Wang WBC 5.9 103/ul Normal 4.0-11.0 [facility] Comment on above: Performed By: #### E RUR #### [facility] [address] [place] [address] HEAD WO CONon [...] DORIAN GREENE Date: 2021-07-29 15:01 Normal [facility] ER URINE PROFILEon 2 Bilirubin Ql (U) Negative Normal NEGATIVE [facility] Comment on above: Performed By: #### E RUR #### [facility] [address] [place] [address] Dr. Grzegorz Wang Clarity (U) CLEAR Normal CLEAR [facility] Comment on above: Performed By: #### E RUR #### [facility] [address] [place] [address] Dr. Grzegorz Wang Color (U) LT. YELLOW Normal YELLOW [facility] Comment on above: Performed By: #### E RUR #### [facility] [address] [place] [address] Dr. Grzegorz Wang ERUAHD A micrscopic examination will be performed if indicated. Normal [facility] Comment on above: Performed By: #### E RUR #### [facility] [address] [place] [address] Dr. Grzegorz Wang Glucose Ql (U) Negative Normal NEGATIVE [facility] Comment on above: Performed By: #### E RUR #### [facility] [address] [place] [address] Dr. Grzegorz Wang Hemoglobin Ql (U) Negative Normal NEGATIVE [facility] Comment on above: Performed By: #### E RUR #### [facility] [address] [place] [address] Dr. Grzegorz Wang Ketones Ql (U) Negative Normal NEGATIVE [facility] Comment on above: Performed By: #### E RUR #### [facility] [address] [place] [address] Dr. Grzegorz Wang LEUKOCYTES Negative Normal NEGATIVE [facility] Comment on above: Performed By: #### E RUR #### [facility] [address] [place] [address] Dr. Grzegorz Wang Nitrite Ql (U) Negative Normal NEGATIVE [facility] Comment on above: Performed By: #### E RUR #### [facility] [address] [place] [address] Dr. Grzegorz Wang pH (U) 5.5 [pH] Normal 5-9 [facility] Comment on above: Performed By: #### E RUR #### [facility] [address] [place] [address] Dr. Grzegorz Wang SPEC GRAVITY 1.010 Normal 1.005-<=1.0 25 [facility] Comment on above: Performed By: #### E RUR #### [facility] [address] [place] [address] Dr. Grzegorz Wang UA PROTEIN Negative Normal NEGATIVE/ TRACE [facility] Comment on above: Performed By: #### E RUR #### [facility] [address] [place] [address] Dr. Grzegorz Wang UR MICRO IND NOT INDICATED Normal [facility] Comment on above: Performed By: #### E RUR #### [facility] [address] [place] [address] Dr. Grzegorz Wang Urobilinogen Qn (U) 0.2 {Lidya'U}/dL Normal 0.2 - 1. 0 [facility] Comment on above: Performed By: #### E RUR #### [facility] [address] [place] [address] Dr. Grzegorz Wang PROF 14(COMP METB)on 022 Albumin [Mass/Vol] 3.1 g/dL Critically low 3.4-5.0 [facility] Comment on above: Performed By: #### E RUR #### [facility] [address] [place] [address] Dr. Grzegorz Wnag Albumin/Globulin [Mass ratio] 1.0 {ratio} Normal [facility] Comment on above: Performed By: #### E RUR #### [facility] [address] [place] [address] Dr. Grzegorz Wang ALP [Catalytic activity/Vol] 99 U/L Normal 46-116 [facility] Comment on above: Performed By: #### E RUR #### [facility] [address] [place] [address] Dr. Grzegorz Wang ALT [Catalytic activity/Vol] 18 U/L Normal 14-59 [facility] Comment on above: Performed By: #### E RUR #### [facility] [address] [place] [address] Dr. Grzegorz Wang Anion gap [Moles/Vol] 10.5 mmol/L Normal [facility] Comment on above: Performed By: #### E RUR #### [facility] [address] [place] [address] Dr. Grzegorz Wang AST [Catalytic activity/Vol] 14 U/L Critically low 15-37 [facility] Comment on above: Performed By: #### E RUR #### [facility] [address] [place] [address] Dr. Grzegorz Wang Bilirubin [Mass/Vol] 0.3 mg/dL Normal 0.2-1.0 [facility] Comment on above: Performed By: #### E RUR #### [facility] [address] [place] [address] Dr. Grzegorz Wang Calcium [Mass/Vol] 8.5 mg/dL Normal 8.5-10.1 [facility] Comment on above: Performed By: #### E RUR #### [facility] [address] [place] [address] Dr. Grzegorz Wang Chloride [Moles/Vol] 108 mmol/L Critically high 98-107 [facility] Comment on above: Performed By: #### E RUR #### [facility] [address] [place] [address] Dr. Grzegorz Wang CO2 [Moles/Vol] 26.0 mmol/L Normal 21.0-32.0 [facility] Comment on above: Performed By: #### E RUR #### [facility] [address] [place] [address] Dr. Grzegorz Wang Creatinine [Mass/Vol] 1.07 mg/dL Critically high 0.55-1.02 [facility] Comment on above: Performed By: #### E RUR #### [facility] [address] [place] [address] Dr. Grzegorz Wang EGFR-AF MOROCCAN >60 Normal >=60 [facility] Comment on above: Performed By: #### E RUR #### [facility] [address] [place] [address] Dr. Grzegorz Wang EGFR-NON AF MOROCCAN 50 mL/min/1.73m2 Critically low >=60 [facility] Comment on above: Performed By: #### E RUR #### [facility] [address] [place] [address] Dr. Grzegorz Wang Globulin (S) [Mass/Vol] 3.0 g/dL Normal [facility] Comment on above: Performed By: #### E RUR #### [facility] [address] [place] [address] Dr. Grzegorz Wang Glucose [Mass/Vol] 87 mg/dL Normal 74-106 [facility] Comment on above: Performed By: #### E RUR #### [facility] [address] [place] [address] Dr. Grzegorz Wang Potassium [Moles/Vol] 3.5 mmol/L Normal 3.5-5.1 [facility] Comment on above: Performed By: #### E RUR #### [facility] [address] [place] [address] Dr. Grzegorz Wang Protein [Mass/Vol] 6.1 g/dL Critically low 6.4-8.2 [facility] Comment on above: Performed By: #### E RUR #### [facility] [address] [place] [address] Dr. Grzegorz Wang Sodium [Moles/Vol] 141 mmol/L Normal 136-145 [facility] Comment on above: Performed By: #### E RUR #### [facility] [address] [place] [address] Dr. Grzegorz Wang Urea nitrogen [Mass/Vol] 22.0 mg/dL Critically high 7.0-18.0 [facility] Comment on above: Performed By: #### E RUR #### [facility] [address] [place] [address] Dr. Grzegorz Wang Urea nitrogen/Creatinine [Mass ratio] 20.6 mg/mg Normal [facility] Comment on above: Performed By: #### E RUR #### [facility] [address] [place] [address] Dr. Grzegorz Wang PROTIMEon 07-29-2021 INR Coag (PPP) [Relative time] 0.99 {INR} Normal [facility] Comment on above: Performed By: #### P TT, PT #### [facility] [address] [place] [address] Dr. Grzegorz Wang INR GUIDELINES SEE BELOW Normal [facility] Comment on above: Result Comment: DENTON RED INR: 2.0 - 3.0 CONDITIONS NOT LISTED BELOW 2.5 - 3.5 FOR PROSTHETIC HEART VALVE REPLACEMENT 2.5 - 3.5 RECURRENT THROMBOSIS Performed By: #### P TT, PT #### [facility] [address] [place] [address] Dr. Grzegorz Wang PT Coag (PPP) [Time] 10.7 s Normal 9.0-11.6 [facility] Comment on above: Performed By: #### P TT, PT #### [facility] [address], [place] [address] Dr. Grzegorz Wang PTTon 07-29-2021 aPTT Coag (Bld) [Time] 31.0 s Normal 22.3-36.2 [facility] Comment on above: Performed By: #### P TT, PT #### [facility] [address], [place] [address] Dr. Grzegorz Wang XR CHEST 1 Von [...] by: NATACHA TO Date: 2021-07-29 14:54 Normal [facility] XR hand RT min 3V*on 022 XR hand RT min 3V* [facility] [employer] Other XR hand RT min 3V* [facility] [employer] Other XR hand RT min 3V* [address] [place] [address] [employer] Other XR hand RT min 3V* [place] [address] [employer] Other XR hand RT min 3V* XRay Report [employer] Other XR hand RT min 3V* Signed [employer] Other XR hand RT min 3V* Patient: Ozzie Gifford MR#: [id number] [employer] Other XR hand RT min 3V* [id number] [employer] Other XR hand RT min 3V* : 1950 Acct:[id number] [employer] Other XR hand RT min 3V* Age/Sex: 71 / F ADM Date: 07/12/21 [employer] Other XR hand RT min 3V* Loc: [facility] Room: Type : [facility] [employer] Other XR hand RT min 3V* Attending Dr: Neeraj Arrington MD [employer] Other XR hand RT min 3V* Ordering Provider: Susie Arrington MD [employer] Other XR hand RT min 3V* Date of Service: 07/12/21 [employer] Other XR hand RT min 3V* XR/XR hand RT min 3V*: Right hand pain [employer] Other XR hand RT min 3V* Copies to: Susie Arrington MD [employer] Other XR hand RT min 3V* XR hand RT min 3V* 07/12/2021 10:43 AM [employer] Other XR hand RT min 3V* SIGNS AND SYMPTOMS: Fall, pain in right hand greatest in the right thumb with swelling [employer] Other XR hand RT min 3V* PROTOCOL: Frontal, lateral, and oblique radiographs of the right hand [employer] Other XR hand RT min 3V* COMPARISON: None [employer] Other XR hand RT min 3V* FINDINGS: [employer] Other XR hand RT min 3V* There is mild narrowing of the distal interphalangeal joints. There is a mild flexion deformity of [employer] Other XR hand RT min 3V* the fifth proximal interphalangeal joint. There is mild narrowing of the first metacarpophalangeal [employer] Other XR hand RT min 3V* junction with mild t o moderate degenerative change at the first carpometacarpal joint. There is no [employer] Other XR hand RT min 3V* evidence of acute displaced fracture. No evidence of dislocation. [employer] Other XR hand RT min 3V* XR/XR hand RT min 3V* [employer] Other XR hand RT min 3V* IMPRESSION: [employer] Other XR hand RT min 3V* No evidence of fracture. [employer] Other XR hand RT min 3V* Degenerative changes are noted, greatest in the thumb. [employer] Other XR hand RT min 3V* There is a mild flexion deformity of the fifth proximal interphalangeal joint. [employer] Other XR hand RT min 3V* Impression dictated by: Bambi Sung M.D.07/12/2021 12:29 PM [employer] Other XR hand RT min 3V* Dictation Location: [place] [address] [employer] Other XR hand RT min 3V* Transcribed By: SHYANN 07/12/21 1229 [employer] Other XR hand RT min 3V* Dictated By: Bambi Sung II, MD 07/12/21 [facility]8 [employer] Other XR hand RT min 3V* Signed By: [employer] Other XR hand RT min 3V* 07/12/[address] [place] [address] [employer] Other CBC AUTO DIFFon 05-08-2021 BASO # 0.1 103/ul Normal 0.0-0.1 [facility] Comment on above: Performed By: #### C BC #### [facility] [address] [address] [address] Grzegorz Wang Basophils/100 WBC (Bld) 0.8 % Normal 0.2-2.0 [facility] Comment on above: Performed By: #### C BC #### [facility] [address] [place] [address] Dr. Grzegorz Wang EO # 0.3 103/ul Normal 0.0-0.7 [facility] Comment on above: Performed By: #### C BC #### [facility] [address] [place] [address] Dr. Grzegorz Wang Eosinophils/100 WBC (Bld) 3.8 % Normal 0.9-7.0 [facility] Comment on above: Performed By: #### C BC #### [facility] [address] [place] [address] Dr. Grzegorz Wang Erythrocyte distribution width (RBC) [Ratio] 14.1 % Normal 11.0-15.0 [facility] Comment on above: Performed By: #### C BC #### [facility] [address] [place] [address] Dr. Grzegorz Wang Hematocrit (Bld) [Volume fraction] 34.4 % Critically low 36.0-48.0 [facility] Comment on above: Performed By: #### C BC #### [facility] [address] [place] [address] Dr. Grzegorz Wang Hemoglobin (Bld) [Mass/Vol] 10.4 g/dL Critically low 12.0-16.0 [facility] Comment on above: Performed By: #### C BC #### [facility] [address] [place] [address] Dr. Grzegorz Wang IG # 0.04 10e3/ul Critically high 0.00-0.03 [facility] Comment on above: Performed By: #### C BC #### [facility] [address] [place] [address] Dr. Grzegorz Wang IG % 0.5 % Normal 0.0-0.5 [facility] Comment on above: Performed By: #### C BC #### [facility] [address] [place] [address] Dr. Grzegorz Wang LYMPH # 1.7 103/ul Normal 1.2-3.8 [facility] Comment on above: Performed By: #### C BC #### [facility] [address] [place] [address] Dr. Grzegorz Wang Lymphocytes/100 WBC (Bld) 22.1 % Normal 20.5-60.0 [facility] Comment on above: Performed By: #### C BC #### [facility] [address] [place] [address] Dr. Grzegorz Wang MANUAL DIFF REQ NO Normal [facility] Comment on above: Performed By: #### C BC #### [facility] [address] [place] [address] Dr. Grzegorz Wang MCH (RBC) [Entitic mass] 25.6 pg Critically low 26.7-34.0 [facility] Comment on above: Performed By: #### C BC #### [facility] [address] [place] [address] Dr. Grzegorz Wang MCHC (RBC) [Mass/Vol] 30.2 g/dL Normal 29.9-35.2 [facility] Comment on above: Performed By: #### C BC #### [facility] [address] [place] [address] Dr. Grzegorz Wang MCV (RBC) [Entitic vol] 84.5 fL Normal 81.0-99.0 [facility] Comment on above: Performed By: #### C BC #### [facility] [address] [place] [address] Dr. Grzegorz Wang MONO # 0.8 103/ul Normal 0.3-0.8 [facility] Comment on above: Performed By: #### C BC #### [facility] [address] [place] [address] Dr. Grzegorz Wang Monocytes/100 WBC (Bld) 11.1 % Normal 1.7-12.0 [facility] Comment on above: Performed By: #### C BC #### [facility] [address] [place] [address] Dr. Grzegorz Wang NEUT # 4.7 103/ul Normal 1.4-6.5 [facility] Comment on above: Performed By: #### C BC #### [facility] [address] [address] [address] Grzegorz Wang Neutrophils/100 WBC (Bld) 61.7 % Normal 43.0-75.0 [facility] Comment on above: Performed By: #### C BC #### [facility] [id number] Grzegorz Wang Platelet mean volume (Bld) [Entitic vol] 10.6 fL Normal 9.5-13.5 [facility] Comment on above: Performed By: #### C BC #### [facility] [id number] Grzegorz Wang PLT 281 103/ul Normal 150-450 [facility] Comment on above: Performed By: #### C BC #### [facility] [address] [address] [address] Grzegorz Wang RBC 4.07 106/ul Critically low 4.20-5.40 [facility] Comment on above: Performed By: #### C BC #### [facility] [id number] Grzegorz Wang WBC 7.6 103/ul Normal 4.0-11.0 [facility] Comment on above: Performed By: #### C BC #### [facility] [address] [place], [place] [id number] Dr. Grzegorz Wang CT CHEST WO CONon [...] LUCI MARADIAGA Date: 2021-05-08 18:59 Normal [facility] CT HEAD WO CONon 05-08-2021 CT HEAD [...] MITZI LOWRY Date: 2021-05-08 17:27 Normal [facility] CT NECK ST WO CONon 05-09-19 CT [...] The parotid glands, parapharyngeal spaces and left formal waiter/waitress spaces appear normal. A tiny amount of air in the venous system in the right parapharyngeal space and in the venous system of the right formal waiter/waitress space. A tiny amount air in probably [...] space and venous system in the right formal waiter/waitress space, likely iatrogenic. No abnormal fluid collection. Prior right carotid endarterectomy. 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 Electronically authenticated by: BASIM CABAN Date: 2021-05-08 19:23 Normal [facility] PROF CHEM 8 (BAS METB)on Anion gap [Moles/Vol] 12.3 mmol/L Normal [facility] Comment on above: Performed By: #### A MY LIPA #### [facility] [address] [address] [address] Grzegorz Wang Calcium [Mass/Vol] 8.4 mg/dL Critically low 8.5-10.1 [facility] Comment on above: Performed By: #### A MY LIPA #### [facility] [address] [place], [place] [address] Dr. Grzegorz Wang Chloride [Moles/Vol] 108 mmol/L Critically high 98-107 [facility] Comment on above: Performed By: #### A MY LIPA #### [facility] [address] [place] [address] Dr. Grzegorz Wang CO2 [Moles/Vol] 25.9 mmol/L Normal 22.0-30.0 [facility] Comment on above: Performed By: #### A MY, LIPA #### [facility] [address] [place] [address] Dr. Grzegorz Wang Creatinine [Mass/Vol] 1.18 mg/dL Critically high 0.52-1.04 [facility] Comment on above: Performed By: #### A BRAYDEN LIPA #### [facility] [address] [place] [address] Dr. Grzegorz Wang EGFR-AF MOROCCAN 55 mL/min/1.73m2 Critically low >=60 [facility] Comment on above: Performed By: #### A BRAYDEN LIPA #### [facility] [address] [place] [address] Dr. Grzegorz Wang EGFR-NON AF MOROCCAN 45 mL/min/1.73m2 Critically low >=60 [facility] Comment on above: Performed By: #### A BRAYDEN LIPA #### [facility] [address] [place] [address] Dr. Grzegorz Wang Glucose [Mass/Vol] 84 mg/dL Normal 74-106 [facility] Comment on above: Performed By: #### A BRAYDEN LIPA #### [facility] [address] [place] [address] Dr. Grzegorz Wang Potassium [Moles/Vol] 3.2 mmol/L Critically low 3.4-5.0 [facility] Comment on above: Performed By: #### A MY LIPA #### [facility] [address] [place] [address] Dr. Grzegorz Wang Sodium [Moles/Vol] 143 mmol/L Normal 137-145 [facility] Comment on above: Performed By: #### A MY LIPA #### [facility] [address] [place] [address] Dr. Grzegorz Wang Urea nitrogen [Mass/Vol] 35.0 mg/dL Critically high 7.0-18.0 [facility] Comment on above: Performed By: #### A PHIL OWEN #### [facility] [address] [place], [place] [address] Dr. Grzegorz Wang Urea nitrogen/Creatinine [Mass ratio] 29.7 mg/mg Normal [facility] Comment on above: Performed By: #### A PHIL OWEN #### [facility] [id number] Grzegorz Wang XR PELVIS 1_2 VIEWSon [...] LUCI MARADIAGA Date: 2021-05-08 17:24 Normal [facility] XR wrist LT min 3V*on 2021 XR wrist LT min 3V* [facility] [employer] Other XR wrist LT min 3V* [facility] [employer] Other XR wrist LT min 3V* [address] [place] [address] [employer] Other XR wrist LT min 3V* [place], [place] [id number] [place] [address] [employer] Other XR wrist LT min 3V* XRay Report [facility] [employer] Other XR wrist LT min 3V* Signed [facility] Other XR wrist LT min 3V* Patient: Ozzie Gifford MR#: [id number] [place] [employer] Other XR wrist LT min 3V* [id number] [facility] Other XR wrist LT min 3V* : 1950 Acct:[id number] [facility] Other XR wrist LT min 3V* Age/Sex: 70 / F ADM Date: 05/03/21 [facility] Other XR wrist LT min 3V* Loc: SOXD Room: Type : [facility] Other XR wrist LT min 3V* Attending Dr: Neeraj Arrington MD [facility] Other XR wrist LT min 3V* Ordering Provider: Susie Arrington MD [facility] Other XR wrist LT min 3V* Date of Service: 05/03/21 [facility] Other XR wrist LT min 3V* XR/XR wrist LT min 3V*: Other specified postprocedural states [facility] Other XR wrist LT min 3V* Copies to: Susie Arrington MD [facility] Other XR wrist LT min 3V* 4 viewsLEFT wrist plain film [facility] Other XR wrist LT min 3V* COMPARISON:03/31/21 [facility] Other XR wrist LT min 3V* HISTORY:Status post ORIF distal radius fracture [facility] Other XR wrist LT min 3V* No hardware failure. Adequate bony alignment. Healing distal radius fracture noted. [facility] Other XR wrist LT min 3V* XR/XR wrist LT min 3V* [facility] Other XR wrist LT min 3V* IMPRESSION:Healing distal radius fracture. No hardware failure. [facility] Other XR wrist LT min 3V* Impression dictated by: Husam Martinez M.D.05/03/2021 2:12 PM [facility] Other XR wrist LT min 3V* Dictation Location: [place] [address] [facility] Other XR wrist LT min 3V* Transcribed By: SHYANN 05/03/21 1412 [facility] Other XR wrist LT min 3V* Dictated By: Husam Martinez DO 05/03/21 1411 [facility] Other XR wrist LT min 3V* Signed By: [facility] Other XR wrist LT min 3V* 05/03/21 141 No rt [employer] Other XR FOREARM LT 2 VIEWSon 03-14 [...] by: MARYSE LANGFORD Date: 2021-03-30 20:17 Normal [facility] Reporton 03-03-2020 Cardiovascular Lab Report [facility] Patient Name: [facility] Ozzie MR #: [id number] Department of Physician: Donna Henderson M.D. Division of Service Date: 03/03/2020 Cardiology Birthdate: 1950 Adult Cardiovascular Room #: [address] [place] [address] Cardiovascular Laboratory Report FINAL IMPRESSION: 1. Moderate [...] femoral vein and artery was obtained. A 6-Australian 11 cm sheath was inserted in each. Difficulty exchanging the micropuncture kit for a 6-Australian sheath encountered for the arterial access site; [...] physiological assessment of the coronary lesions. A 6-Australian XB 3.5 guide catheter was advanced over [...] trauma. The guide catheter was removed. A 5-Australian JR4 guide catheter was advanced in and [...] Doty M.D. Date Trans: 03/03/2020 12:28 P/mmo [id number] cc: Nicolas Carrillo M.D. Heart Failure/ Transplant Mailstop 111[address] [facility] [address], [place] [address] [facility] [address] [facility] [address] Normal [facility] Vital Signs Date Time Vital Sign Value Performing Clinician Facility 10-16-2022 14:10-0400 Body height 154.94 cm Kori Temple Other [facility] Other 10-16-2022 14:10-0400 Body mass index (BMI) [Ratio] 26.53 kg/m2 Kori Temple Other [facility] Other 10-16-2022 14:10-0400 Body temperature 98.1 [degF] Kori Temple Other [facility] Other 10-16-2022 14:10-0400 Body weight 63.69 kg Kori Windy Other [facility] Other 10-16-2022 14:10-0400 Diastolic blood pressure 81 mm[Hg] Kori Windy Other [facility] Other 10-16-2022 14:10-0400 Respiratory rate 18 /min Kori Windy Other [facility] Other 10-16-2022 14:10-0400 SaO2% (BldA) [Mass fraction] 98 % Kori Windy Other [facility] Other 10-16-2022 14:10-0400 Systolic blood pressure 139 mm[Hg] Kori Temple Other [facility] Other 04-04-2022 09:30-0500 Body height 154.94 cm Denver Juarez Other [facility] Other 04-04-2022 09:30-0500 Body mass index (BMI) [Ratio] 28.72 kg/m2 Denver Juarez Other [facility] Other 04-04-2022 09:30-0500 Body temperature 97.8 [degF] Denver Juarez Other [facility] Other 04-04-2022 09:30-0500 Body weight 68.95 kg Denver Juarez Other [facility] Other 04-04-2022 09:30-0500 Diastolic blood pressure 72 mm[Hg] Denver Juarez Other [facility] Other 04-04-2022 09:30-0500 SaO2% (BldA) [Mass fraction] 98 % Denver Millernorah Other [facility] [employer] Other 04-04-2022 09:30-0500 Systolic blood pressure 116 mm[Hg] Denver Larry Other [facility] [employer] Other 11-22-2021 12:12-0400 Body temperature 97.9 [degF] MD Shaikh Day Work Phone: [facility] 11-22-2021 12:12-0400 Diastolic blood pressure 82 mm[Hg] MD Shaikh Day Work Phone: [facility] 11-22-2021 12:12-0400 Heart rate 95 /min MD Shaikh Day Work Phone: [facility] 11-22-2021 12:12-0400 Respiratory rate 16 /min MD Shaikh Day Work Phone: [facility] 11-22-2021 12:12-0400 SaO2% (BldA) [Mass fraction] 98 % MD Shaikh Day Work Phone: [facility] 11-22-2021 12:12-0400 Systolic blood pressure 151 mm[Hg] MD Shaikh Day Work Phone: [facility] 11-22-2021 04:04-0400 Body weight 78.6 kg MD Shaikh Day Work Phone: [facility] 11-21-2021 17:12-0400 Body height 157.48 cm MD Shaikh Day Work Phone: [facility] 11-21-2021 13:57-0400 Diastolic blood pressure 56 mm[Hg] MD Shaikh Day Work Phone: [facility] 11-21-2021 13:57-0400 Heart rate 77 /min MD Shaikh Day Work Phone: [facility] 11-21-2021 13:57-0400 Respiratory rate 16 /min MD Shaikh Day Work Phone: [facility] 11-21-2021 13:57-0400 SaO2% (BldA) [Mass fraction] 95 % MD Shaikh Day Work Phone: [facility] 11-21-2021 13:57-0400 Systolic blood pressure 117 mm[Hg] MD Shaikh Day Work Phone: [facility] 11-21-2021 11:24-0400 Body temperature 96.9 [degF] MD Shaikh Day Work Phone: [facility] 11-21-2021 03:56-0400 Body height 157.48 cm MD Shaikh Day Work Phone: [facility] 11-21-2021 03:56-0400 Body weight 75.9 kg MD Shaikh Day Work Phone: [facility] 09-27-2021 10:15-0400 Body height 154.94 cm Denver Juarez Other [facility] Other 09-27-2021 10:15-0400 Body mass index (BMI) [Ratio] 35.9 kg/m2 Denver Juarez Other [facility] Other 09-27-2021 10:15-0400 Body temperature 96.2 [degF] Denver Juarez Other [facility] Other 09-27-2021 10:15-0400 Body weight 86.18 kg Denver Juarez Other [facility] Other 09-27-2021 10:15-0400 Diastolic blood pressure 52 mm[Hg] Denver Juarez Other [facility] Other 09-27-2021 10:15-0400 SaO2% (BldA) [Mass fraction] 97 % Denver Juarez Other [facility] Other 09-27-2021 10:15-0400 Systolic blood pressure 110 mm[Hg] Denver Millernorah Other [facility] Other 09-22-2021 14:15-0400 Body height 154.94 cm Ilda Das Other [facility] Other 09-22-2021 14:15-0400 Body mass index (BMI) [Ratio] 35.9 kg/m2 Ilda Das Other [facility] Other 09-22-2021 14:15-0400 Body temperature 98.2 [degF] Ilda Das Other [facility] Other 09-22-2021 14:15-0400 Body weight 86.18 kg Ilda Das Other [facility] Other 09-22-2021 14:15-0400 Respiratory rate 18 /min Ilda Das Other [facility] Other 09-22-2021 14:15-0400 SaO2% (BldA) [Mass fraction] 98 % Ilda Das Other [facility] Other 09-20-2021 17:00-0400 Body height 154.94 cm Susie Arrington Other [facility] Other 09-20-2021 17:00-0400 Body mass index (BMI) [Ratio] 35.9 kg/m2 Susie Arrington Other [facility] Other 09-20-2021 17:00-0400 Body weight 86.18 kg Susie Arrington Other [facility] Other 05-03-2021 11:45-0400 Body height 154.94 cm Susie Arrington Other [facility] Other 05-03-2021 11:45-0400 Body mass index (BMI) [Ratio] 35.9 kg/m2 Susie Arrington Other [facility] Other 05-03-2021 11:45-0400 Body weight 86.18 kg Susie Arrington Other [facility] Other 03-02-2021 10:00-0500 Body height 154.94 cm Denver Juarez Other [facility] Other 03-02-2021 10:00-0500 Body mass index (BMI) [Ratio] 36.27 kg/m2 Denver Juarez Other [facility] Other 03-02-2021 10:00-0500 Body temperature 96.5 [degF] Denver Juarez Other [facility] Other 03-02-2021 10:00-0500 Body weight 87.09 kg Denver Juarez Other [facility] Other 03-02-2021 10:00-0500 Diastolic blood pressure 58 mm[Hg] Denver Juarez Other [facility] Other 03-02-2021 10:00-0500 SaO2% (BldA) [Mass fraction] 99 % Denverjessy Juarez Other [facility] Other 03-02-2021 10:00-0500 Systolic blood pressure 108 mm[Hg] Denver Juarez Other [facility] Other 12-01-2020 10:00-0400 Body height 154.94 cm Denver Juarez Other [facility] Other 12-01-2020 10:00-0400 Body mass index (BMI) [Ratio] 36.27 kg/m2 Denver Juarez Other [facility] Other 12-01-2020 10:00-0400 Body weight 87.09 kg Denver Larry Other [facility] Other 12-01-2020 10:00-0400 Diastolic blood pressure 79 mm[Hg] Denver Juarez Other [facility] Other 12-01-2020 10:00-0400 Systolic blood pressure 149 mm[Hg] Denver Juarez Other [facility] Other 11-10-2020 10:30-0400 Body height 154.94 cm Denver Juarez Other [facility] Other 11-10-2020 10:30-0400 Body mass index (BMI) [Ratio] 35.9 kg/m2 Denver Juarez Other [facility] Other 11-10-2020 10:30-0400 Body weight 86.18 kg Denver Juarez Other [facility] Other 11-10-2020 10:30-0400 Diastolic blood pressure 84 mm[Hg] Denver Juarez Other [facility] Other 11-10-2020 10:30-0400 Systolic blood pressure 150 mm[Hg] Denver Juarez Other [facility] Other Encounters Encounter Date Encounter Type Care Provider Facility Start: 02-20-2023 End: 02-20-2023 ambulatory SHAIKH BARB Not Available Start: 02-16-2023 ambulatory [facility] Start: 02-13-2023 End: 02-13-2023 ambulatory [facility] Start: 01-24-2023 Telephone encounter Charlette Burr [facility] Comment on above: paperwork Start: 01-21-2023 ambulatory Shaikh Barb Facility: [facility] Start: 10-16-2022 End: 10-16-2022 ambulatory Kori Temple Other [facility] Other Start: 10-16-2022 Office outpatient visit 15 minutes Kori Temple [facility] Start: 08-28-2022 End: 08-28-2022 ambulatory NICOLAS LOMAXBHUPENDRA [facility] Start: 04-04-2022 Office outpatient visit 15 minutes Denver Juarez [facility] Start: 04-04-2022 End: 04-04-2022 ambulatory Denver Juarez [facility] Other Start: 03-06-2022 End: 03-06-2022 ambulatory Earline Harris Other [facility] Other Start: 03-06-2022 Telephone encounter Earline Harris [facility] Start: 03-05-2022 End: 03-05-2022 ambulatory MEGHANN FONSECA [facility] Start: 03-02-2022 End: 03-02-2022 ambulatory De Oliveira Fawwad Facility:[facility] Start: 03-02-2022 End: 03-02-2022 ambulatory MD Gerry Hartley Work Phone: [facility] Work Phone: Start: 03-02-2022 End: 03-02-2022 Departed Referred MD Gerry Hartley Work Phone: [facility] [place] Work Phone: Start: 02-21-2022 End: 02-22-2022 ambulatory MEGHANN FONSECA Facility:[facility] Start: 02-20-2022 End: 02-21-2022 ambulatory DE OLIVEIRA H FAWWAD Facility:[facility] Start: 01-31-2022 End: 02-01-2022 ambulatory DE OLIVEIRA H FAWWAD Facility:[facility] Start: 01-22-2022 End: 01-23-2022 ambulatory DE OLIVEIRA H FAWWAD Facility:[facility] Start: 01-18-2022 End: 01-19-[address] Facility:[facility] Start: 01-09-2022 End: 01-09-2022 ambulatory MD Shaikh Day Work Phone: [facility] Work Phone: Start: 01-09-2022 End: 01-09-2022 Discharged Recurring MD Shaikh Day Work Phone: [facility]-Speech Therapy [address] Start: 01-02-2022 End: 01-03-2022 ambulatory DE OLIVEIRA H FAWWAD Facility:[facility] Start: 12-07-2021 End: 12-08-2021 ambulatory DE OLIVEIRA H FAWWAD Facility:[facility] Start: 11-27-2021 End: 11-28-2021 ambulatory DE OLIVEIRA H FAWWAD Facility:[facility] Start: 11-26-2021 End: 11-26-2021 ambulatory DE OLIVEIRA H FAWWAD Facility:[facility] Start: 11-24-2021 End: 11-24-2021 Emergency department patient visit 837 NO FAMILY PHYSICIAN Facility:[id number] Start: 11-21-2021 End: 11-22-2021 Evaluation and management of inpatient MD Shaikh Day Work Phone: [facility] [place] [facility] Start: 11-14-2021 Registered Recurring MD Shaikh Day Work Phone: [facility]-Speech Therapy [address] Start: 10-31-2021 End: 10-31-2021 ambulatory Denver Juarez Other [facility] Other Start: 10-31-2021 Telephone encounter Denver Chanel [facility] Start: 10-24-2021 End: 10-25-2021 ambulatory SHAIKH Be DAY Facility:[facility] Start: 10-16-2021 End: 10-18-2021 Evaluation and management of inpatient SHAIKH Be DAY Facility:[facility] Start: 09-27-2021 End: 09-27-2021 ambulatory Denver Juarez Other [facility] Other Start: 09-27-2021 Office outpatient visit 15 minutes Denver Juarez [facility] Start: 09-22-2021 End: 09-22-2021 ambulatory Ilda Das Other [facility] Other Start: 09-22-2021 Office outpatient visit 15 minutes Ilda Das [facility] Start: 09-20-2021 End: 09-20-2021 ambulatory Susie Arrington Other [facility] Other Start: 09-20-2021 Office outpatient visit 10 minutes Susie Arrington [facility] Start: 09-02-2021 End: 09-02-2021 ambulatory SHAIKH Be DAY Facility:[facility] Start: 08-31-2021 End: 08-31-2021 Patient encounter procedure MD Shaikh Day Work Phone: [facility]-Ultrasound [place] [facility] Start: 08-29-2021 Registered Recurring MD Shaikh Day Work Phone: [facility]-Speech Therapy [address] Start: 08-24-2021 ambulatory LIZ ATWOODCKER Facility :[facility] Start: 08-02-2021 End: 08-02-2021 ambulatory Susie Arrington Other [facility] Other Start: 08-02-2021 End: 08-02-2021 Patient encounter procedure Susiejennifer Arrington [facility] Start: 07-29-2021 End: 07-29-2021 ambulatory SHAIKH Be DAY Facility:[facility] Start: 07-12-2021 End: 07-12-2021 ambulatory Susie Arrington Other [facility] Other Start: 07-12-2021 Office outpatient visit 15 minutes Susiejennifer Arrington [facility] Start: 07-12-2021 End: 07-12-2021 Patient encounter procedure MD Shaikh Day Work Phone: [facility]-XRay [facility] Start: 06-15-2021 End: 06-15-2021 Discharged Recurring MD Shaikh Day Work Phone: [facility]-Still Cleaner [address] Start: 05-31-2021 End: 05-31-2021 ambulatory Susie Calvchetan Other [facility] Other Start: 05-31-2021 Postop follow up vis it related to original px Susie Calvey [facility] Start: 05-08-2021 End: 05-08-2021 ambulatory SHAIKH Be DAY Facility:[facility] Start: 05-03-2021 End: 05-03-2021 ambulatory Susiejennifer Arrington Other [facility] Other Start: 05-03-2021 Postop follow up vis it related to original px Susie Arrington [facility] Start: 03-30-2021 End: 03-31-2021 ambulatory SHAIKH Be DAY Facility: Start: 03-02-2021 End: 03-02-2021 ambulatory Denver Millernorah Other [facility] Other Start: 03-02-2021 Office outpatient visit 15 minutes Denver Juarez [facility] Surgery Start: 12-01-2020 Office outpatient visit 25 minutes Denver Juarez [facility] Surgery Start: 11-10-2020 Office outpatient visit 15 minutes Denver Larry [facility] Vascular Surgery Procedures Date Procedure Procedure Detail [...] DTaP,Tdap and Td Vaccines (2 - Tdap) [facility] Start: 03-12-2023 End: 03-12-2023 Patient encounter procedure 03/12/2023 10:00 AM EST Office Visit [facility] [address] [place] [phone] Alan Elmore MD [address] [place] [address], [id number] [place] [address] [facility] Start: 10-12-2022 COVID-19 Vaccine ( season) COVID-19 Vaccine () [facility] Start: 03-02-2022 Bacteria identified in Urine by Culture Urine Culture [facility] Start: 11-22-2021 Comprehensive metabolic 2000 panel - Serum or Plasma [facility] Start: 11-22-2021 Magnesium measurement [facility] Start: 11-22-2021 End: 11-22-2021 [facility] Start: 11-21-2021 Patient referral to dietitian [facility] Start: 11-21-2021 Referral to suction worker [facility] Start: 11-21-2021 Hospital admission [facility] Start: 11-21-2021 Physical therapy procedure [facility] Start: 11-21-2021 Referral to occupational therapist [facility] Start: 11-21-2021 [facility] Start: 08-31-2021 Doppler ultrasonography of bilateral carotid arteries US carotid doppler BI [facility] Start: 08-31-2021 US.doppler Carotid arteries - bilateral [facility] Work Phone: Start: 2013 Fall Risk Screening Fall Risk Screening [facility] Start: 1998 Administration of varicella zoster vaccine Zoster (Shingles) Vaccine (1 of 2) [facility] Start: 1966 Adult BMI Screening Adult BMI Screening [facility] Start: 1960 Depression Screening Depression Screening [facility] Start: 1960 Tobacco Screening Tobacco Screening [facility] Start: 1948 Medicare Annual Wellness Visit Medicare Annual Wellness Visit [facility] Bacteria identified in Blood by Culture [facility] Bacteria identified in Urine by Culture [facility] Blood culture for bacteria, including anaerobic screen Blood Culture [facility] Patient Education Bradycardia (DC) [facility] Work Phone: Patient referral [facility] Work Phone: Urine culture Urine Culture [facility] Immunizations Immunization Date Immunization Notes Care Provider Fa cility 06-11-2020 COVID-19 Ad26.COV2.S (Clarence) MD Shaikh Day Work Phone: [facility] Payers Date Payer Category Payer Medicare ANTHEM MEDICARE [facility] MEDICARE ADVANTAGE [id number] 2018-Present [phone] [address] [place] [address] [id number] 2008 Unknown [id number] 1959 Medicare [id number] 2..[id number] 1959 Self-pay [id number] 1948 Unknown [id number] 2.840.1.454360.3.579.2.159 1948 Unknown [id number] 2..840.1.625304.3.579.2.593 1948 Unknown [id number] 2.16.840.1.002051.3.579.2.593 1948 Unknown [id number] 2.16.840.1.640067.3.579.2.593 1948 Unknown [id number] 2.16840.1.815470.3.579.2.593 1948 Unknown [id number] 2.16.840.1.877071.3.579.2.593 1948 Unknown [id number] 2.16.840.1.876251.3.579.2.593 1948 Unknown [id number] 2.16.840.1.484318.3.579.2.593 1948 Unknown [id number] 2.16.840.1.583993.3.579.2.593 1948 Unknown [id number] 2.16.840.1.634169.3.579.2.593 1948 Unknown [id number] 2.16.840.1.492373.3.579.2.593 1948 Unknown [id number] 2.16840.1.472677.3.579.2.593 1948 Unknown [id number] 2.16840.1.953536.3.579.2.593 1948 Unknown [id number] 2.16840.1.361029.3.579.2.593 1948 Unknown [id number] 2.16840.1.669776.3.579.2.593 1948 Unknown [id number] 2.16840.1.084547.3.579.2.593 1948 Unknown [id number] 2.16840.1.141494.3.579.2.593 1948 Unknown [id number] 2.16.840.1.543585.3.579.2.593 1948 Unknown [id number] 2.16.840.1.477626.3.579.2.593 1948 Unknown [id number] 2.16.840.1.431970.3.579.2.1286 1948 Unknown [id number] 2.16.840.1.362956.3.579.2.1259 Medicare Medicare [id number] Medicare Medicare [id number] Unknown [id number] 2.16.840.1.187120.3.579.2.531 Unknown [id number] 2.16.840.1.170167.3.579.2.531 Unknown [id number] 2.16.840.1.928369.3.579.2.531 Social History Date Type Detail Facility Start: 04-05-2018 End: 02-23-2020 [facility] Start: 07-22-2018 End: 03-31-2021 Tobacco smoking status NHIS Ex-smoker (finding) [facility] Start: 1950 Sex Assigned At Female F [facility] History of tobacco use Current smoker [facility] History of tobacco use Cigarette Smoker P [employer] Start: 07-22-2018 End: 02-23-2020 Cigarettes smoked current (pack per day) - Reported 1 1SDK Start: 07-22-2018 Tobacco use and exposure Smoke less tobacco non-user [facility] Start: 08-25-2018 Alcohol intake 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 non-dr flight purser of alcohol (finding) [facility] Frequency of Alcohol Consumption Never [facility] Start: 1950 Sex Assigned At Not on file P [employer] [facility] Medical Equipment Procedure Code Equipment Code Equipment Origin al Text Equipment Identifier Dates ORIF, fracture, wrist Orthopaedic fixation plate, non-bioabsorbable, sterile ()[id number] FDA Start: 03-31-2021 ORIF, fracture, wrist Orthopaedic bone screw, non-bioabsorbable, non-sterile ()[id number] FDA Start: 03-31-2021 ORIF, fracture, wrist Orthopaedic bone screw, non-bioabsorbable, non-sterile ()[id number] FDA Start: 03-31-2021 ORIF, fracture, wrist Orthopaedic bone screw, non-bioabsorbable, non-sterile ()[id number] FDA Start: 03-31-2021 ORIF, fracture, wrist Orthopaedic bone screw, non-bioabsorbable, non-sterile ()[id number] FDA Start: 03-31-2021 Endarterectomy, carotid Cardiovascular patch, animal-derived ()[id number] FDA Start: 04-06-2020 Sys Crd Rvl Linq Rpl [id number] - [id number] - [id number] Start: 04-08-2018 Goals Date Patient Goal [...] Facility 11-22-2021 Functional status Patient at Baseline [facility] Work Phone: 11-21-2021 Functional status Patient Not at Baseline [facility] Work Phone: Mental Status Date Assessment Result Facility 11-22-2021 Cognitive function Cognitive Sta tus Patient at Baseline [facility] Work Phone: 11-21-2021 Cognitive function Cognitive Sta tus Patient Not at Baseline [facility] Work Phone: Clinical Notes 11-10-2020 [...] for diuresis and repeat BMP next week [facility] 02-13-2023 Note Lipid abnormalities are well controlled, continue crestor [facility] 02-13-2023 Note Hypertension is elev ated, currently will increase lasix to daily and increase potassium, Repeat BMP in 1 week Continue norvasc 2.5 mg Renal function normal [facility] 02-13-2023 Note Coronary artery dise ase is stable Continue GDMT- ASA, crestor and toprol continue risk factor modifications- heart healthy diet, regular exercise as tolerated and continue all medications. [facility] 02-13-2023 Note F/U with neuro [facility] 02-13-2023 Note UTP CARDIOLOGY PROGR ESS [...] stroke on 10/20/2022 and was seen in [facility] ED. She is having trouble getting [...] to get appointment with Neuro/stroke service at [facility] and with her PCP DR [...] Affect: Mood nor (more content not included)... [facility] 02-13-2023 Note Patient here for 6 m o follow up CAD, hypertension, and carotid artery stenosis. She states she tries to take her lasix every other day. C/o pissing herself at night and smelly urine . Says she had another stroke on 10/20/2022 and was seen in [facility] ED. She is having trouble getting [...] All other systems reviewed and are negative. [facility] 01-24-2023 Miscellaneous Notes Patient called to see if we received paperwork that was sent from her PCP in July. Caller states she has had a new stroke and needs to be seen. Patient states she has been having headaches and dizziness. Please advise [phone] Patient last seen in 2018. No paperwork has been completed or received. Please see where patient had recent stroke and gather records. Called pt. She state Dr. Hartley sent the paperwork back in November 2022. MRI was done at [place] very recently. Cook Syrup Maker will be requesting image and any office visit notes related to neurology. Pt seems to be very frustrated by the lack of communication. [employer] Maker informed that we will reach out to [place] to gather as much information. [employer] Maker must note that the quality of the call was very poor and it was hard to communicate with the patient. Asked if she could move to somewhere with a better cashier receptionist, but even then the quality did not improve. At the end of the call, she showed more frustration which financial writer could not understand and she hung up. Called [facility] radiology to confirm if she has gotten any MRI in November. It was ordered by one of the hospitalists. A pipe testing technician could not confirm who ordered the imaging, but confirmed that she pushed over the imaging through PACs and reports via fax. Currently waiting for response. Faxed request for hospitalization records on nov 2022. Currently waiting for response. Called and scheduled an appointment on 03/12/23 at 10:00 AM documented in this encounter [facility] 01-24-2023 Telephone encounter Note Patient called to see if we received paperwork that was sent from her PCP in July. Caller states she has had a new stroke and needs to be seen. Patient states she has been having headaches and dizziness. Please advise [phone] [facility] 01-24-2023 Telephone encounter Note Patient last seen in 2019. No paperwork has been completed or received. Please see where patient had recent stroke and gather records. [facility] 01-24-2023 Telephone encounter Note Called pt. She state Dr. Hartley sent the paperwork back in November 2022. MRI was done at [place] very recently. [employer] Sy[employer] Maker will be requesting image and any office visit notes related to neurology. Pt seems to be very frustrated by the lack of communication. Cook Sy[employer] Maker informed that we will reach out to [place] to gather as much information. [employer] Sy[employer] Maker must note that the quality of the call was very poor and it was hard to communicate with the patient. Asked if she could move to somewhere with a better cashier receptionist, but even then the quality did not improve. At the end of the call, she showed more frustration which financial writer could not understand and she hung up. [facility] 01-24-2023 Telephone encounter Note Called [facility] radiology to confirm if she has gotten any MRI in November. It was ordered by one of the hospitalists. A pipe testing technician could not confirm who ordered the imaging, but confirmed that she pushed over the imaging through PACs and reports via fax. Currently waiting for response. [facility] 01-24-2023 Telephone encounter Note Faxed request for hospitalization records on nov 2022. Currently waiting for response. [facility] 01-24-2023 Telephone encounter Note Called and scheduled an appointment on 03/12/23 at 10:00 AM [facility] 10-16-2022 Evaluation note Encounter Date Diagnosis Assessment [...] with chronic urinary symptoms. Patient verbalized understanding. [facility] Other 07-18-2023 NoteUT Cardiology [facility] Subjective Ozzie Gifford is a 72 [...] , Disp: , Rfl: (more content not included)...[facility]02-22-2023 Evaluation note* Encounter Date Diagnosis Assessment Notes [...] 1 year with repeat studies for surveillance. [facility] Other 01-23-2023 NoteHeart rate stable- 69 bpm Currently remains on toprol 25 mg daily. Denied lightheadedness/dizziness or [facility] 03-05-2022 NoteF/U with vascular surgery for monitoringUnSalem City [facility]01-23-2023 NoteWill start imdur 30 mg daily, d/w pt about headache as side effect and this should resolve after some time of taking imdur- if H/a does not resolve then we will stop medication. D/w pt that this may lower her b/p and to call office for any concerns.[facility]01-23-2023 NoteEvaluated by Vein specialist- Dr Walsh, Dr Juarez- vascular surgery Recommended lymphedema clinic.[facility]01-23-2023 Note UTP CARDIOLOGY PROGRESS NOTE HPI: Ozzie [...] not to see her vascular surgeon in [place] yet, to see the vein specialist first. [...] syncope RTC 3-6 months or earlier if neededUnSalem City Hospital01-23-2023 NotePatient here for follow up echo. She's down 8# from apt last month. She had B/L LE venous reflux study 2 weeks ago, and states that physician told me it was my heart . She is referring to her LE edema. She said PCP advised her not to see her vascular surgeon in [place] yet, to see the vein specialist first. Review of Systems Constitutional: Positive for weight loss. Cardiovascular: Positive for leg swelling. Skin: Positive for color change. All other systems reviewed and are negative.[facility] 03-05-2022 Notecontinue crestor 10 mgUnSalem City Hospital 03-05-2022 NoteHypertension is 144/86- at home she states b/p is typicaly 130/80 or less Will add imdur to regime for angina Continue toprol, lasixUnSalem City Hospital01-23-2023 NoteContinue risk factor modifications- heart healthy diet, regular exercise as tolerated and continue all medications. Cpntinue GDMT- ASA, crestor, toprol, will start imdur.[facility]10-18-2022 NoteED Procedure Charges Entered On: 11/28/2021 17:45 EDT Performed On: 11/28/2021 17:44 EDT by Heena Crawford [employer] ([id number]) Sim Rep Sca to 2.5 [id number] : 1 Heena Crawford - 11/28/2021 17:44 [facility]10-14-2022 NoteED Nursing Discharge Summary Entered On: 11/24/2021 17:29 EDT Performed On: 11/24/2021 17:29 EDT by Jennifer Mccarthy RN HI Information [id number] ED IV's : No IV ED IV Site Assessment : No IV ED Vitals Completed : Yes ED Final Assessment Completed : Yes ED Progress Note Completed : Yes Complete all PRN/Pain response forms? : Yes ED Disassociate Patient from Monitor : N/A Updated Depart Time : Yes ED Belongings sent w patient [id number] : Not applicable Jennifer Mccarthy RN - [...] Mccarthy RN - 11/24/2021 17:29 EDT [facility]-14-2022 NotePROCEDURE: CT CHEST WITHOUT IV CONTRAST HISTORY: WHAT SYMPTOMS ARE YOU EXPERIENCING? - PT FELL AND HIT HEAD, PAIN, HX OF STROKE 2019, SOB, CHEST PAIN PAIN COMPARISON: None TECHNIQUE: Multiple contiguous axial CT images of the chest were obtained without the administration of intravenous contrast. Sagittal and coronal reconstructions were performed. All CT scans at [facility] use dose modulation, iterative reconstruction, and/or [...] in diameter. See below for follow-up recommendations. [facility] MANDATED QUALITY DATA - FOLLOW-UP IMAGING FOR [...] By: ISMAEL AGUILAR MD Signed Out: 11/24/21 14:28:[address] [place], [place] 1553210-12-2022 Consult note Author Shavon Leos [facility] November 22, 2021 11:54am Note Date/Time November 22, 2021 1 1:45am [facility] [address] [place] [address] Cardiology Consult Note Signed Patient: Ozzie Gifford MR#: [id number] : 1950 Acct:[id number] Age/Sex: 71 / F Adm Date: 2 Loc: Room: [address] [place] [address] Type: ADM IN Attending Dr: Anna Valladares [...] past she underwent work-up by cardiology in [place]. She did undergo an implantable loop recorder [...] of appendectomy History of cardiac catheterization 2020 [facility] History of knee replacement right knee replacement [...] x10E3/uL Lymph # (Auto) 1.2 (1.00-4.8) x10E3/uL [place] # (Auto) 0.4 (0.0-0.8) x10E3/uL Eos # [...] ,000 ml @ 100 mls/hr IV .Q10H [facility] Rx#:[id number] Oral 250 / 500 450 / 450 [...] implantable loop recorder had seen cardiology in [place] Code(s): R00.1 - Bradycardia, unspecified (2) AMS [...] continue his long-term follow-up with his primary suction worker in [place] Documented By: Shavon Leos MD 11/22/21 1143 Signed By: <Electronically signed by MD Shavon Leos> 11/22/21 1154 [facility] Work Phone: 1(690) 189-356110-12-2022 Progress note Author Anna Valladares [facility] November 22, 2021 8:17am Note Date/Time November 21, 2021 1 2:10pm [facility] [address] [place] [address] Hospitalist Progress Note Signed Patient: Ozzie Gifford MR#: [id number] : 1950 Acct:[id number] Age/Sex: 71 / F Adm Date: 2 Loc: 3T Room: [address] [place] [address] Type: ADM IN Attending Dr: Anna Valladares MD Copies to: ~ Date of Service: 11/21/2021 Subjective Subjective Narrative: Patient seen and examined. cartpearl, currently still roomed in down in ER awaiting nursing floor availability. She offers no complaint. Keeps talkingof her daughter in [place] dying from cancer currently. thinks this is [...] signed by Anna Valladares MD> 11/22/21 0817 [facility] Work Phone: [phone]) 198-937710-11-2022 History and physical note Author Ashleigh Rashid [facility] November 21, 2021 6:39am Note Date/Time November 21, 2021 6 :39am [facility] [address] [place] [address] Hospitalist H&P Signed Patient: Ozzie Gifford MR#: [id number] : 1950 Acct:[id number] Age/Sex: 71 / F Adm Date: 2 Loc: ER Room: Type: [facility] ER Attending Dr: Copies to: MD [...] of appendectomy History of cardiac catheterization 2020 [facility] History of knee replacement right knee replacement [...] % (Auto) 20.4 % (.) 11/21/21 04:12 Pickett % (Auto) 9.9 % (.) 11/21/21 04:12 Eos % (Auto) 3.7 % (.) 11/21/21 04:12 Baso % (Auto) 0.8 % (.) 11/21/21 04:12 Neut # (Auto) 3.5 x10E3/uL (1.8-7.7) 11/21/21 04:12 Lymph # (Auto) 1.1 x10E3/uL (1.00-4.8) 11/21/21 04:12 Pickett # (Auto) 0.5 x10E3/uL (0.0-0.8) 11/21/21 04:12 [...] pH 5.5 (5.0-9.0) 11/21/21 04:20 Ur Specific [place] 1.010 (1.001-1.030) 11/21/21 04:20 Urine Protein Negative [...] Lovenox Documented By: Ashleigh Cruz MD 2 6051 Signed By: <Electronically signed by Ashleigh Cruz MD> 11/21/21 0639 [facility] Work Phone: 1(651) 797-402010-11-2022 History and physical note Author Ashleigh Rashid [facility] November 21, 2021 6:39am Note Date/Time November 21, 2021 6 :39am [facility] [address] [place] [address] Hospitalist H&P Signed Patient: Ozzie Gifford MR#: [id number] : 1950 Acct:[id number] Age/Sex: 71 / F Adm Date: 2 Loc: ER Room: Type: [facility] ER Attending Dr: Copies to: MD [...] of appendectomy History of cardiac catheterization 2020 [facility] History of knee replacement right knee replacement [...] % (Auto) 20.4 % (.) 11/21/21 04:12 [place] % (Auto) 9.9 % (.) 11/21/21 04:12 Eos % (Auto) 3.7 % (.) 11/21/21 04:12 Baso % (Auto) 0.8 % (.) 11/21/21 04:12 Neut # (Auto) 3.5 x10E3/uL (1.8-7.7) 11/21/21 04:12 Lymph # (Auto) 1.1 x10E3/uL (1.00-4.8) 11/21/21 04:12 [place] # (Auto) 0.5 x10E3/uL (0.0-0.8) 11/21/21 04:12 [...] pH 5.5 (5.0-9.0) 11/21/21 04:20 Ur Specific [place] 1.010 (1.001-1.030) 11/21/21 04:20 Urine Protein Negative [...] signed by Ashleigh Cruz MD> 11/21/21 0639 [facility] Work Phone: 1(324) 655-612608-17-2022 Evaluation note* Encounter Date Diagnosis Assessment Notes [...] studies. All of her questions were addressed. [facility] Other 08-12-2022 Evaluation note* Encounter Date Diagnosis [...] Advised that patient may continue to use vnod-iwm-ojhpgco medications as needed for supportive treatment. Discussed that it could be possible that her nausea/vomiting/diar debbi could still be some residual side effects from the Paxlovid medication. At this time she should not take anymore that. She may follow-up with family doctor as scheduled on Saturday if she has more concerns. [facility] Other 08-10-2022 Evaluation note* Encounter Date Diagnosis [...] new questions or concerns at this time. [facility] Other 06-22-2022 Evaluation note* Encounter Date Diagnosis [...] Other specified postprocedural states (ICD-10 - Z98.890) [facility] Other 06-01-2022 Evaluation note* Encounter Date Diagnosis [...] Other specified postprocedural states (ICD-10 - Z98.890) [facility] Other 04-20-2022 Evaluation note* Encounter Date Diagnosis [...] Progress activity as tolerated. Call with questions/concerns. [facility] Other 03-23-2022 Evaluation note* Encounter Date Diagnosis Assessment Notes Treatment Notes Treatment Clinical Notes Apr, Other specified postprocedural states (ICD-10 - Z98.890) Radiographs reviewed with patient. Patient is progressing well from surgery. Continue occupational therapy exercises. Call with questions/concerns . Apr, Other fractures of lower end of left radius, subsequent encounter for closed fracture with routine healing (ICD-10 - S52.592D) [facility] Other 01-20-2022 Evaluation note* Encounter Date Diagnosis [...] or reaches 80% or she develops symptoms [facility] Other 10-21-2021 Evaluation note* Encounter Date Diagnosis [...] suggested ice and elevation with compression stockings. [facility] Other 09-30-2021 Evaluation note* Encounter Date Diagnosis [...] classify this is asymptomatic recurrent stenoses currently. [facility] Other Evaluation noteNo assessment information available [facility] Work Phone: Evaluation noteNo InformationNort [employer] Other Evaluation note* Diagnosis Onset Date Resolution Status JASEN (acute kidney injury) ac [place] AMS (altered mental status) acute Impaired mobility and activities of daily living acute Symptomatic bradycardia acut e [facility] Work Phone: Evaluation note* Diagnosis Onset Date Resolution Status JASEN (acute kidney injury) ac [place] AMS (altered mental status) acute Impaired mobility and activities of daily living acute Symptomatic bradycardia acut e H/O traumatic brain injury c hronic HLD (hyperlipidemia) chronic HTN, goal below 140/90 chron ic [facility] Work Phone: Hisgyvr general Narrative - Reported* Type Description Date [...] History childbirth Hospitalization History X2 strokes 2019 [facility] Other Hislucj general Narrative - Reported* Type Description Date [...] History childbirth Hospitalization History X2 strokes 2018 [facility] Other Hospital Discharge instructions Additional Instructions Please call and schedule an appointment with your established Mock Up Builder. We attempted to make this appointment for you but the office was currently unavailable.[facility] Work Phone: InstructionsNot on filedocumented in this encounter 1SDK Summary Purpose Family History No Family History [...] and content) DATE CREATED AUTHOR 03/09/2020 [facility] DATE CREATED AUTHOR AUTHOR'S ORGANIZ ATION 12/03/2021 [facility] DATE CREATED AUTHOR AUTHOR'S ORGANIZ ATION 02/28/2022 [facility] [place] [facility] DATE CREATED AUTHOR AUTHOR'S ORGANIZ ATION 01/22/2023 [facility] DATE CREATED AUTHOR AUTHOR'S ORGANIZ ATION 02/17/2023 [facility] DATE CREATED AUTHOR AUTHOR'S ORGANIZ ATION 02/21/2023 [facility] EPIC DATE CREATED AUTHOR AUTHOR'S ORGANIZ ATION 02/28/2023 [facility] REASON FOR VISIT (unrecogniz ed section and [...] MD Other Provider Active Maddie Garcia , [facility] Other Provider Active Team Status: Inactive [...] Active Earline Harris APRN Attending Provider Active Domestic Travel Consultant Relationship Specialty Start Date End Date Gerry Hartley MD [address] [place] [id number] PCP - General Family Medicine 04/07/18 Goals [...] BE BASED ON THE PRIMARY CLINICAL RECORDS. [employer] provides no warranty or guarantee of the accuracy or completeness of information in this document.
--- NOTE | 2023-03-01 09:00 | ECG_ITS ---
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
--- NOTE | 2023-03-01 09:00 | CT_ITS ---
The [address] [address] Patient Name: FITZ GIFFORD MRN: [id number] date: 1950 Sex: F Assigned Patient Location: ER Current Patient Location: Accession/Order Number: [id number] Exam Date: 03/01/2023 09:10 Report Date: 03/01/2023 09:58 At the request of: JOHANNE SAGASTUME Procedure: CT angio neck EXAM: CT angio head, CT angio neck HISTORY: cva COMPARISON: CT head 03/01/2022 MR brain 11/22/2022. TECHNIQUE: Postcontrast CTA imaging of the head and neck was performed with coronal and sagittal reformats. Maximum intensity projection reformats were performed on a separate workstation. NASCET criteria was utilized. This CT exam was performed using one or more of the following dose reduction techniques: Automated exposure control, adjustment of the MA and/or kV according to patient size, or use of iterative reconstruction technique. FINDINGS: Aortic arch: Imaged portion shows no evidence of aneurysm. Prominent atherosclerotic changes present involving the visualized portions of the aortic arch and origins of the aortic arch branch vessels with some degree of artifact at the level of the aortic arch branch vessel origins partially degrading evaluation. There is suspected short segment 50% stenosis involving the origin of the right brachiocephalic artery. Short segment narrowing approaching but not exceeding 50% stenosis involving the origin of the right subclavian artery. Right carotid system: Mixed but primarily noncalcified atherosclerotic changes present involving the origin and proximal right internal carotid artery with short segment 45-50% stenosis over a less than 5 mm segment involving the origin of the right internal carotid artery. Left carotid system: Mixed probably calcified atherosclerotic changes present involving the left common carotid artery, carotid bulb and proximal left internal carotid artery without hemodynamically significant stenosis. There is short segment severe stenosis versus occlusion involving the origin of the left external auditory canal with lack of visualization of the origin over a less than 5 mm segment. Vertebral arteries: Left vertebral artery dominance. No evidence of significant (50% or greater) stenosis or occlusion. Anterior circulation: No evidence of aneurysm, significant stenosis, or occlusion. Hypoplastic fenestrated right A1 anterior cerebral artery segment. Vertebrobasilar system: No evidence of aneurysm, significant stenosis, or occlusion. Venous sinuses: Grossly patent. Additional findings: Mild emphysematous changes involving the shoulders upper lungs. CT/CT angio neck IMPRESSION: 1. Short segment severe stenosis versus occlusion involving the origin of the left external carotid artery. 2. Short segment approximately 50% stenosis involving the origin of the right brachiocephalic artery and narrowing approaching but not exceeding 50% stenosis involving the origin of the right subclavian artery. 3. 45-50% stenosis involving the origin of the right internal carotid artery over a less than 5 mm segment. 4. No significant stenosis, large vessel occlusion or aneurysm involving the intracranial arterial vasculature. Electronically authenticated by: SHANIA WASHINGTON Date: 03/01/2023 09:58
--- NOTE | 2023-03-01 09:00 | XR_ITS ---
The [address] [address] Patient Name: FITZ GIFFORD MRN: [id number] date: 1950 Sex: F Assigned Patient Location: ER Current Patient Location: ER Accession/Order Number: [id number] Exam Date: 03/01/2023 09:10 Report Date: 03/01/2023 09:32 At the request of: JOHANNE SAGASTUME Procedure: XR chest 1V EXAMINATION: XR chest 1V HISTORY: cva COMPARISON: 01/02/2022 TECHNIQUE: AP portable FINDINGS: LUNGS: No significant pulmonary parenchymal abnormalities. VASCULATURE: No increased pulmonary vasculature. PLEURA: No pneumothorax, effusion, or pleural thickening. CARDIAC: No cardiomegaly or cardiac silhouette abnormality. MEDIASTINUM: No visible mass or adenopathy. Aortic atherosclerosis BONES: No fracture or visible bone lesion. OTHER: Negative. XR/XR chest 1V IMPRESSION: No acute cardiopulmonary process Electronically authenticated by: NATACHA SANTANA Date: 03/01/2023 09:32
--- NOTE | 2023-03-01 09:00 | CT_ITS ---
The [address] [address] Patient Name: FITZ GIFFORD MRN: [id number] date: 1950 Sex: F Assigned Patient Location: ER Current Patient Location: Accession/Order Number: [id number] Exam Date: 03/01/2023 09:10 Report Date: 03/01/2023 09:58 At the request of: JOHANNE SAGASTUME Procedure: CT angio head EXAM: CT angio head, CT angio neck HISTORY: cva COMPARISON: CT head 03/01/2022 MR brain 11/22/2022. TECHNIQUE: Postcontrast CTA imaging of the head and neck was performed with coronal and sagittal reformats. Maximum intensity projection reformats were performed on a separate workstation. NASCET criteria was utilized. This CT exam was performed using one or more of the following dose reduction techniques: Automated exposure control, adjustment of the MA and/or kV according to patient size, or use of iterative reconstruction technique. FINDINGS: Aortic arch: Imaged portion shows no evidence of aneurysm. Prominent atherosclerotic changes present involving the visualized portions of the aortic arch and origins of the aortic arch branch vessels with some degree of artifact at the level of the aortic arch branch vessel origins partially degrading evaluation. There is suspected short segment 50% stenosis involving the origin of the right brachiocephalic artery. Short segment narrowing approaching but not exceeding 50% stenosis involving the origin of the right subclavian artery. Right carotid system: Mixed but primarily noncalcified atherosclerotic changes present involving the origin and proximal right internal carotid artery with short segment 45-50% stenosis over a less than 5 mm segment involving the origin of the right internal carotid artery. Left carotid system: Mixed probably calcified atherosclerotic changes present involving the left common carotid artery, carotid bulb and proximal left internal carotid artery without hemodynamically significant stenosis. There is short segment severe stenosis versus occlusion involving the origin of the left external auditory canal with lack of visualization of the origin over a less than 5 mm segment. Vertebral arteries: Left vertebral artery dominance. No evidence of significant (50% or greater) stenosis or occlusion. Anterior circulation: No evidence of aneurysm, significant stenosis, or occlusion. Hypoplastic fenestrated right A1 anterior cerebral artery segment. Vertebrobasilar system: No evidence of aneurysm, significant stenosis, or occlusion. Venous sinuses: Grossly patent. Additional findings: Mild emphysematous changes involving the shoulders upper lungs. CT/CT angio head IMPRESSION: 1. Short segment severe stenosis versus occlusion involving the origin of the left external carotid artery. 2. Short segment approximately 50% stenosis involving the origin of the right brachiocephalic artery and narrowing approaching but not exceeding 50% stenosis involving the origin of the right subclavian artery. 3. 45-50% stenosis involving the origin of the right internal carotid artery over a less than 5 mm segment. 4. No significant stenosis, large vessel occlusion or aneurysm involving the intracranial arterial vasculature. Electronically authenticated by: SHANIA WASHINGTON Date: 03/01/2023 09:58
--- NOTE | 2023-03-01 09:00 | CT_ITS ---
The [address] [address] Patient Name: FITZ GIFFORD MRN: [id number] date: 1950 Sex: F Assigned Patient Location: ER Current Patient Location: ER Accession/Order Number: [id number] Exam Date: 03/01/2023 09:10 Report Date: 03/01/2023 09:31 At the request of: JOHANNE SAGASTUME Procedure: CT stroke head/brain wo con EXAMINATION: CT stroke head/brain wo con HISTORY: aphasia COMPARISON: 10/20/2022 TECHNIQUE: Axial CT images were obtained without IV contrast. Dose reduction techniques were achieved by using automated exposure control and/or adjustment of mA and/or kV according to patient size and/or use of iterative reconstruction technique. FINDINGS: BRAIN: No acute hemorrhage mass or infarct. Extensive white matter hypoattenuation, chronic small vessel ischemic changes. Remote left middle cerebral artery infarct with ex vacuo dilation of the left lateral ventricle, stable CSF SPACES: No subarachnoid hemorrhage or mass SKULL: No fracture, mass, or other significant visible lesion. SINUSES: No significant mucosal thickening or fluid on the limited views. ORBITS: No appreciable abnormality on the limited views. OTHER: Findings were relayed to Cheko in the emergency room at 9:[address]/CT stroke head/brain wo con IMPRESSION: Stable atrophy and white matter disease Electronically authenticated by: NATACHA SANTANA Date: 03/01/2023 09:31
--- NOTE | 2023-03-01 09:02 | ED.GENADUL1 ---
HPI - General Adult General Chief complaint: Neuro Symptoms/Deficit Stated complaint: STROKE SYMPTOMS RETURNING Time Seen by Provider: 03/01/23 09:00 Source: patient Mode of arrival: ECHO AT TB Limitations: no limitations History of Present Illness HPI narrative: Stroke alert was called to error on side of caution. Patient is a 72-year-old female who is presenting to the Emergency Room today with chief complaint of expressive aphasia and strokelike signs or symptoms. Patient was here for outpatient echocardiogram. It was noted the patient was having expressive aphasia, echocardiogram was completed, and then patient was sent to the Emergency Room. Patient believes that around 5 PM last night approximately patient started having respiratory aphasia at home that she noticed by herself. Patient 1st saw her around 7:30/8 PM last night. He noticed at that time the patient was having expressive aphasia as well. Patient has minimal bilateral occipital headache, no significant deficits noted to the arms or legs bilateral. Patient has a history of recent transient ischemic attack/stroke. Patient takes no blood thinners at this time. is at bedside. Patient has no chest pain or shortness of breath, no dull pain nausea vomiting. No other acute complaints. No facial slurring, no facial droop, no other acute complaints. Patient stated that she's been having some expressive aphasia since last evening anywhere between 5p - 8:30 PM is when this could have started. Patient never saw patient yesterday morning. We don't have a true last known normal time, but it could've started last evening. . All systems are negative except as noted/marked. All systems reviewed and otherwise negative. . Nurses note and vital signs reviewed and patient is not hypoxic. General: The patient appears well and in no apparent distress. Patient is resting comfortably on cart. Patient is not toxic, lethargic, or listless Skin: Warm, dry, no pallor noted. There is no rash noted. No petechiae, purpura. Head: Normocephalic, atraumatic Eye: Normal conjunctiva, no drainage, EOMI. PERRL Ears, Nose, Mouth, and Throat: oral mucosa is moist. Nares patent. Mouth without vesicles. Cardiovascular: Regular Rate and Rhythm, no murmur, gallop, rub Respiratory: Patient is in no distress, no accessory muscle use, lungs are clear to auscultation, no wheezing, rales or rhonchi Back: non-tender, no CVA tenderness bilaterally to percussion. No CT LS midline pain GI: soft, no tenderness to palpation, no masses appreciated. No rebound, guarding, or rigidity noted. No flank pain bilateral, No distention Musculoskeletal: Patient has full range of motion of all of the extremities, no motor, sensory, or focal neurological deficits Neurological: A&O x3, mild expressive aphasia. NIH 1 Psychiatric: Cooperative Related Data Home Medications Medication Instructions Recorded Confirmed amlodipine 2.5 mg tablet 2.5 mg PO DAILY 10/20/22 10/20/22 aspirin 81 mg chewable tablet 1 tab PO DAILY 10/20/22 10/20/22 baclofen 20 mg tablet 20 mg PO TID 10/20/22 10/20/22 clonazepam 0.5 mg tablet 0.5 mg PO BID 10/20/22 10/20/22 ferrous sulfate 325 mg (65 mg 325 mg PO DAILY 10/20/22 10/20/22 iron) tablet (FeroSul) furosemide 20 mg tablet 40 mg PO .every other day 10/20/22 10/20/22 metoprolol succinate 25 mg 25 mg PO DAILY 10/20/22 10/20/22 tablet,extended release 24 hr potassium chloride 10 mEq 10 meq PO DAILY 10/20/22 10/20/22 capsule,extended release quetiapine 50 mg tablet 50 mg PO DAILY 10/20/22 10/20/22 rosuvastatin 10 mg tablet 10 mg PO DAILY 10/20/22 10/20/22 topiramate 50 mg tablet 50 mg PO DAILY 10/20/22 10/20/22 Allergies Allergy/AdvReac Type Severity Reaction Status Date / Time Penicillins AdvReac Severe itch Verified 10/20/22 13:38 [facility] Medical History (Updated 03/01/23 @ 13:53 by Husam Hughes MD) 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 - Occlusion and stenosis of unspecified carotid artery (ICD-10) FH: cholecystectomy ?Z83.79 - Family history of other diseases of the digestive system (ICD-10) FH: bariatric surgery ?Z84.89 - Family history of other specified conditions (ICD-10) Surgical History (Updated 03/01/23 @ 12:12 by Maki Chris) H/O: hysterectomy ?Z90.710 - Acquired absence of both cervix and uterus (ICD-10) History of appendectomy ?Z90.49 - Acquired absence of other specified parts of digestive tract (ICD-10) H/O right knee surgery ?Z98.890 - Other specified postprocedural states (ICD-10) Family History (Updated 03/01/23 @ 12:09 by Maki Chris) Father Family history of CHF (congestive heart failure) Family history of cancer Brother Family history of CHF (congestive heart failure) Family history of myocardial infarction Daughter Family history of cancer Mother Family history of cancer Grandfather Family history of cancer Grandmother Family history of cancer Social History Smoking status: Former smoker Highest level of school completed/degree received: high school graduate Do you think of yourself as: straight/heterosexual Gender Identity: female Exam Constitutional Vital Signs, click to edit/add: Last Vital Signs Temp 97.7 F 03/01/23 12:06 Pulse 58 L 03/01/23 12:06 Resp 18 03/01/23 12:06 BP 142/56 H 03/01/23 12:06 Pulse Ox 95 03/01/23 12:06 O2 Del Method Room Air 03/01/23 12:06 Course Vital Signs Vital signs: Vital Signs Temperature 97.6 F 03/01/23 08:49 Pulse Rate 61 03/01/23 08:49 Respiratory Rate 18 03/01/23 08:49 Blood Pressure 174/82 H 03/01/23 08:49 Pulse Oximetry 100 03/01/23 08:49 Temperature 97.7 F 03/01/23 12:06 Pulse Rate 58 L 03/01/23 12:06 Respiratory Rate 18 03/01/23 12:06 Blood Pressure 142/56 H 03/01/23 12:06 Pulse Oximetry 95 03/01/23 12:06 Oxygen Delivery Method Room Air 03/01/23 12:06 Medical Decision Making MDM Narrative Medical decision making narrative: I initially spoke to the stroke neurologist at the [facility], per medical, Dr. Bautista. I spoke to him at [address] of the brain showed no acute findings. We did discuss patient CTA as well, of the head and neck. We discussed segments severe stenosis versus occlusion involving the region of the left external carotid artery. We Also discussing other areas of stenosis noted on internal carotids. Patient has no significant stenosis, large vessel occlusion or aneurysm. It was recommended the patient be admitted to [facility] with teleneurology stroke from the [facility] at home and. Dr Hollingsworth will be involved with tele stroke neurology patient is admitted. At admission time, patient's expressive aphasia has completely resolved. Patient no longer has weakness to her arms or legs. Patient thought her right leg minute been slightly weak, it has improved. Patient's case was discussed with Dr. Day. Dr Day knows this patient well. Patient just had a MRI of the brain in November 2022 as well. Patient's been having these intermittent symptoms for the past 4-5 months. Patient currently is taking a blood thinner. Patient is under the impression that taking blood thinners will cause ulcers in her stomach. After discussing this with patient, , and Ann RN at transfer to the nursing floor, it was determined this information was given to patient many years ago, before she started having strokes or transient ischemic attacks. Patient is aware that she may need to be on blood thinners at help prevent larger strokes in the future. Patient has been hemolytically stable. NIH 0 at transfer to inpt floor. Critical care time 35 minutes exclusive from separate billable procedures that were performed. The following was considered in the determination of critical care but not limited to the level of medical decision making, intensive cardiac and/or respiratory monitoring, frequent vital sign monitoring, evaluation of laboratory studies, evaluation of radiographic studies, oxygen monitoring, and constant monitoring and speaking to family at bedside Lab Data Lab results reviewed: Yes I reviewed the patient's lab results Labs: Lab Results 03/01/23 03/01/23 03/01/23 Range/Units 08:54 09:00 10:00 WBC 9.3 (4.0-11.0) 10^3/uL RBC 4.88 (4.20-5.40) 10^6/uL Hgb 14.3 (12.0-16.0) g/dL Hct 43.6 (36.0-48.0) % MCV 89.3 (81.0-99.0) fL MCH 29.3 (26.7-34.0) pg MCHC 32.8 (29.9-35.2) g/dL RDW 12.5 (11.0-15.0) % Plt Count 214 (150-450) 10^3/uL MPV 9.7 (9.5-13.5) fL Neut % (Auto) 65.6 (43.0-75.0) % Lymph % (Auto) 21.9 (20.5-60.0) % [place] % (Auto) 9.2 (1.7-12.0) % Eos % (Auto) 2.2 (0.9-7.0) % Baso % (Auto) 0.4 (0.2-2.0) % Neut # (Auto) 6.1 (1.4-6.5) 10^3/uL Lymph # (Auto) 2.1 (1.2-3.8) 10^3/uL [place] # (Auto) 0.9 H (0.3-0.8) 10^3/uL Eos # (Auto) 0.2 (0.0-0.7) 10^3/uL Baso # (Auto) 0.0 (0.0-0.1) 10^3/uL Abs Immat Gran (auto) 0.07 H (0.00-0.03) 10^3/uL Imm/Tot Granulo (auto) 0.7 H (0.0-0.5) % PT 10.1 (9.0-11.6) sec INR 0.95 APTT 25.9 (22.3-36.2) sec Sodium 144 (136-145) mmol/L Potassium 3.1 L (3.5-5.1) mmol/L Chloride 105 (98-107) mmol/L Carbon Dioxide 31.4 (21.0-32.0) mmol/L Anion Gap 10.7 BUN 20.0 H (7.0-18.0) mg/dL Creatinine 0.81 (0.55-1.02) mg/dL Est GFR ( Amer) >60 (>=60) Est GFR (Non-Af Amer) >60 (>=60) BUN/Creatinine Ratio 24.7 Glucose 85 (74-106) mg/dL Calcium 8.6 (8.5-10.1) mg/dL Total Bilirubin 0.8 (0.2-1.0) mg/dL AST 19 (15-37) U/L ALT 34 (14-59) U/L Alkaline Phosphatase 95 (46-116) U/L Troponin I High Sens 6.9 (4.0-51.3) pg/mL Total Protein 6.5 (6.4-8.2) g/dL Albumin 3.2 L (3.4-5.0) g/dL Globulin 3.3 g/dL Albumin/Globulin Ratio 1.0 POC Glucose 88 (74-106) mg/dL Blood Type O Positive Antibody Screen Negative ECG Data Attestation: I personally reviewed and interpreted this ECG as follows: (EKG interpretation. Sinus bradycardia of 46 beats a minute. Normal axis deviation. Artifact noted. No acute ST elevation, no acute ectopy. QTC of 413.) Discharge Plan Discharge Chief Complaint: Neuro Symptoms/Deficit Clinical Impression: TIA (transient ischemic attack) Patient Disposition: Admitted As Inpatient Time of Disposition Decision: 11:00 Condition: Fair Discharge Date/Time: 03/01/23 11:35
[2023-03-01 09:08] LABS: Glucometer 88 mg/dL (74-106)
[2023-03-01 09:11] LABS: Basophils Percent Auto 0.4 % (0.2-2.0); Eosinophils Absolute Auto 0.2 10^3/uL (0.0-0.7); Eosinophils Percent Auto 2.2 % (0.9-7.0); Hematocrit 43.6 % (36.0-48.0); Hemoglobin 14.3 g/dL (12.0-16.0); Immature Granulocytes Abs Auto 0.07 10^3/uL (0.00-0.03); Immature Granulocytes Pct Auto 0.7 % (0.0-0.5); Lymphocytes Absolute Auto 2.1 10^3/uL (1.2-3.8); Lymphocytes Percent Auto 21.9 % (20.5-60.0); Mean Corpuscular HGB Conc 32.8 g/dL (29.9-35.2); Mean Corpuscular Hemoglobin 29.3 pg (26.7-34.0); Mean Corpuscular Volume 89.3 fL (81.0-99.0); Mean Platelet Volume 9.7 fL (9.5-13.5); Monocytes Absolute Auto 0.9 10^3/uL (0.3-0.8); Monocytes Percent Auto 9.2 % (1.7-12.0); Neutrophils Absolute Auto 6.1 10^3/uL (1.4-6.5); Neutrophils Percent Auto 65.6 % (43.0-75.0); Platelet Count 214 10^3/uL (150-450); Red Blood Count 4.88 10^6/uL (4.20-5.40); Red Cell Distribution Width 12.5 % (11.0-15.0); White Blood Count 9.3 10^3/uL (4.0-11.0)
[2023-03-01 09:25] LABS: Alanine Aminotransferase 34 U/L (14-59); Albumin Level 3.2 g/dL (3.4-5.0); Alkaline Phosphatase 95 U/L (46-116); Anion Gap 10.7; Aspartate Amino Transferase 19 U/L (15-37); BUN Creatinine Ratio 24.7; Bilirubin Total 0.8 mg/dL (0.2-1.0); Calcium 8.6 mg/dL (8.5-10.1); Carbon Dioxide 31.4 mmol/L (21.0-32.0); Chloride 105 mmol/L (98-107); Estimated GFR (African America >60 (>=60); Estimated GFR (Non-African Ame >60 (>=60); Globulin 3.3 g/dL; Glucose 85 mg/dL (74-106); Potassium 3.1 mmol/L (3.5-5.1); Sodium 144 mmol/L (136-145); Total Protein 6.5 g/dL (6.4-8.2); Troponin I High Sensitivity 6.9 pg/mL (4.0-51.3)
[2023-03-01 09:27] LABS: INR 0.95; Partial Thromboplastin Time 25.9 sec (22.3-36.2); Prothrombin Time 10.1 sec (9.0-11.6)
--- OUTSIDE RECORDS SUMMARY | 2023-03-01 11:39 | XMS_ITS | CCD ---
Author Name Unknown Address [address] [place] [address] Organization [facility] Care Team Providers Care Neurophysiologist Name Role Phone Denver Juarez Unavailable Susie Arrington Unavailable MD Eddy Day Primary Care Provider MD Susie Arrington R Attending Provider MD Gerry Hartley Primary Care Provider MD Eddy Day Attending Provider MD Denver Juarez Attending Provider Ilda Das Unavailable MD Eddy Day Primary Care Provider MD Gerry Hartley Primary Care Provider MD Eddy Day Attending Provider DO Rafiq Bahena Emergency Provider [phone] MD Ashleigh Card Admit Provider MD Ahsleigh Card Attending Provider LESTER Castañeda Other Provider Unavailable DO Masood Mendoza Other Provider MD Betito Arellano Other Provider [phone] MD Aneesh Zendejas Other Provider [phone] MD Shavon Leos Other Provider [phone] MD Brayan Ribera Other Provider CÉSAR Arenas Other Provider MD Shefali Garibay Other Provider MD Vannessa Nava Other Provider MD Alissa Young Other Provider Jose [facility] Maddie Pietro Other Provider MD Anna Valladares Attending Provider NO FAMILY PHYSICIAN, 837 Primary Care Unavail able MIKE VIDES, - LUIS Attending Unavaila MD Eddy Swenson Primary Care Provider [phone] DO Rafiq Bahena Emergency Provider Al MD Dagoberto Roche Admit Provider MD Anna Valladares Attending Provider [phone] MD Gerry Hartley Primary Care Provider [phone] MD Eddy Day Attending Provider [phone] Admitting Unavailable [address] Attending [...] Unavailable MD Eddy Day Primary Care Provider [phone] CÉSAR Harris Attending Provider [phone] Earline Harris Unavailable Kori Temple Unavailable Famasoodwad, De Oliveira Primary Care Unavailable Earline Harris Admitting Unavailable Earline Harris Attending Unavailable Denver Jaurez Attending Unavailabl e Fawwad, De Oliveira Primary Care Unavailable Denver Juarez Admitting Unavailabl e Fawwad, De Oliveira Admitting Unavailable Fawwad, De Oliveira Primary Care Unavailable Barb, De Oliveira Attending Unavailable EGRRY HARTLEY Referring Unavailable GERRY HARTLEY Primary Care Unavailable Gerry Hartley MD Primary Care Provider BARB, DE OLIVEIRA Attending Unavailable NICOLAS CARRILLO Attending Unavailable MEGHANN FONSECA Attending Unavailable MEGHANN FONSECA Attending Unavailable Allergies Allergy Classification Reported Allergen(s) Allergy Type Date of Onset Reaction(s) Facility (14 sources) Penicillin G Drug Allergy Unknown [facility] Other (9 sources) Penicillins; 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: [Penicillins] Allergy to substance 8 [facility] (1 source) Penicillin Drug Allergy 3 [facility] Rep[facility] Medications Current Medications Medication Drug [...] 12, 2018 9:29am take 1 capsule by [facility] every twenty-four hours Docusate Sodium 100 [...] disease (8 sources) 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; 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: [Other [...] Resolved: 2 Episodic Other aftercare (1 source) 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; 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: [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 OF ASPIRIN] Onset: 2 Episodic Other aftercare (1 source) Other alf (current) drug therapy; 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: [OTH ELECTRONICS TECHNOLOGY DEPARTMENT CHAIR CURRENT DRUG THERAPY] Onset: 2 Episodic Other aftercare (1 source) Encounter for follow-up examination after completed treatment for conditions other than malignant neoplasm; 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: [ENC F/U EX AFTR CMPL TX NOT MAL SU] Onset: 2 Episodic Other aftercare (1 source) alf (current) use of antithrombotics/antipl atelets; 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: [NURSING HOME 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/ANTIPLATL ETS] Onset: 2 Episodic Other circulatory [...] GO DE K TO 20 MG Normal [facility] 37on 02-13-2023 37 Decrease amount of fluids your drinking to about 1.5 liters/day Take lasix 40 mg daily and increase potassium to 20 meq daily Have labs drawn in 1 week Call for appointment with neuro Normal [facility] Office Visiton 02-13-2023 Follow-up visit [id number] Ozzie Gifford 1950 F Date Provider Department Center 02/13/2023 MEGHANN NEGRETE CARD [facility] Family History Problem Relation Age of Onset Hypertension Mother Hypertension Father Heart attack Brother Family Status - Relation Status Age at Mother Father Brother Level of Service:26156 OK OFFICE/OUTPATIENT ESTABLISHED MOD MDM 30 MIN Normal [facility] Urinalysis - AUTOMATEDon Appearance (U) cloudy [employer] Other Bilirubin Ql (U) Negative [employer] Other Color (U) yellow [place] Other Glucose Ql (U) Negative [employer] Other Hemoglobin Ql (U) Negative [employer] Other Ketones Ql (U) Negative [employer] Other Leukocyte esterase Test strip Ql (U) Negative [facility] Other Nitrite Ql (U) Negative [employer] Other pH (U) 6.0 [pH] [facility] Other Protein Ql (U) Negative [employer] Other Specific gravity (U) [Rel density] 1.030 [facility] Other Urobilinogen (U) [Mass/Vol] 1.0 mg/dL [facility] Other Urinalysis - AUTOMATED No rth [employer] Other Office Visiton 08-28-2022 Follow-up visit [id number] Ozzie Gifford 1950 F Date Provider Department Center 08/28/2022 TaeMONIEJVNICOLAS HUIZAR CARD [facility] Family History Problem Relation Age of Onset Hypertension Mother Hypertension Father Heart attack Brother Family Status - Relation Status Age at Mother Father Brother Level of Service:40625 OK OFFICE/OUTPATIENT ESTABLISHED MOD MDM 30-39 MIN Reason for Visit and Comments: Follow-up [[id number]] - 6 month follow up Normal [facility] US carotid doppler BIon 03-15 US carotid doppler BI [facility] [place] [address] Ultrasound Report Signed Patient: Ozzie Gifford MR#: [id number] : 1950 Acct:[id number] Age/Sex: 71 / F ADM Date: 04/04/22 Loc: [facility] Room: Type: [facility] Attending Dr: Denver Juarez MD Ordering [...] Denver Juarez MD04/04/2022 3:28 PM Dictation Location: [place] [address] Tech: Selin Oglesby Transcribed By: [facility] 04/04/22 1528 Dictated By: Denver Juarez MD 04/04/22 1528 Signed By: 04/04/22 1528 [facility] 37on 03-05-2022 37 Start Isosorbide/Imdur 30 mg daily in the morning- for chest pain Call office for any concerns, worsening chest pain, worsening headache, lightheadedness/dizzi ness. Normal [facility] Office Visiton 03-05-2022 Follow-up visit [id number] Ozzie Gifford 1950 F Date Provider Department Center 03/05/2022 Niki-MEGHANN FONSECA CARD [facility] Family History Problem Relation Age of Onset Hypertension Mother Hypertension Father Heart attack Brother Family Status - Relation Status Age at Mother Father Brother Level of Service:46824 OK OFFICE/OUTPATIENT ESTABLISHED MOD MDM 30-39 MIN Normal [facility] Urine Cultureon 03-02-2022 Bacteria identified Cx Nom (U) Reason for Exam Dysuria Urine ORGANISM: Escherichia coli (O:ESCCOL) [place] Count 20,000 Aerobic QUINTIN Charge (NMIC56) ---- [...] RESISTANT TO ALL B-LACTAM DRUGS. PERFORMED BY: [place] [address] PATHOLOGIST PRODUCT MARKETING ANALYST YOCASTA BYRNE M.D. Normal [facility] Comment on above: Performed By: #### C UU #### [address] ECHOCARDIO M/2D COMPLETEon 0 02-21-2022 ECHOCARDIO M/2D COMPLETE Patient: OZZIE GIFFORD Exam Date: 02/21/2022 : 1950 Gender:F Ordering : MEGHANN FONSECA Admission #: [id number] Family : SHAIKH Korina DAY . Order #: [id number] CLICK HERE TO VIEW EXAM ECHOCARDIOGRAM REPORT [...] Doty M.D. on 02/22/2022 at 13:00 Normal [facility] VC COMP CONSULTATIONon 02-20 VC COMP CONSULTATION Patient: OZZIE GIFFORDDeonte Exam Date: 02/20/2022 : 1950 Gender:F Ordering : SHAIKH Korina DAY . 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 The patient [...] Walsh MD on 02/20/2022 at 11:35 Normal [facility] VC VENOUS REFLUX IAN LMTon 0 02-20-2022 VC VENOUS REFLUX IAN LMT Patient: OZZIE GIFFORD Exam Date: 02/20/2022 : 1950 Gender:F Ordering : SHAIKH Korina DAY . Admission #: [id number] Family : DR NATACHA WALSH M.D. Order #: [id number] CLICK HERE TO VIEW EXAM RADIOLOGY REPORT [...] chronic thrombus visualized Compressibility: Normal Flow: Normal Back Maker: Dist/med calf 2.5mm with 0s reflux. Mid/med [...] Walsh MD on 02/20/2022 at 10:30 Normal [facility] US JANETTE DOP LEG LTon 02-01-20 22 [...] by: INDRA LOZADA Date: 2022-01-31 18:39 Normal [facility] BNPon 01-22-2022 Natriuretic peptide B (Bld) [Mass/Vol] 552.0 pg/mL Normal <=900.0 [facility] Comment on above: Performed By: #### E RUR #### [facility] [address] [place] [address] Dr. Grzegorz Wang CBC AUTO DIFFon 01-22-2022 BASO # 0.1 103/ul Normal 0.0-0.1 [facility] Comment on above: Performed By: #### C BC #### [facility] [address] [place] [address] Dr. Grzegorz Wang Basophils/100 WBC (Bld) 0.9 % Normal 0.2-2.[address] [facility] Comment on above: Performed By: #### C BC #### [facility] [address] [place] [address] Dr. Grzegorz Wang EO # 0.3 103/ul Normal 0.0-0.7 [facility] Comment on above: Performed By: #### C BC #### [facility] [address] [place] [address] Dr. Grzegorz Wang Eosinophils/100 WBC (Bld) 5.5 % Normal 0.9-7.0 [facility] Comment on above: Performed By: #### C BC #### [facility] [address] [place] [address] Dr. Grzegorz Wang Erythrocyte distribution width (RBC) [Ratio] 13.7 % Normal 11.0-15.0 [facility] Comment on above: Performed By: #### C BC #### [facility] [address] [place] [address] Dr. Grzegorz Wang Hematocrit (Bld) [Volume fraction] 41.1 % Normal 36.0-48.0 [facility] Comment on above: Performed By: #### C BC #### [facility] [address] [place] [address] Dr. Grzegorz Wang Hemoglobin (Bld) [Mass/Vol] 13.4 g/dL Normal 12.0-16.0 [facility] Comment on above: Performed By: #### C BC #### [facility] [address] [place] [address] Dr. Grzegorz Wang IG # 0.01 10e3/ul Normal 0.00-0.03 [facility] Comment on above: Performed By: #### C BC #### [facility] [address] [place] [address] Dr. Grzegorz Wang IG % 0.2 % Normal 0.0-0.5 [facility] Comment on above: Performed By: #### C BC #### [facility] [address] [place] [address] Dr. Grzegorz Wang LYMPH # 1.8 103/ul Normal 1.2-3.8 [facility] Comment on above: Performed By: #### C BC #### [facility] [address] [place] [address] Dr. Grzegorz Wang Lymphocytes/100 WBC (Bld) 29.9 % Normal 20.5-60.0 [facility] Comment on above: Performed By: #### C BC #### [facility] [address] [place] [address] Dr. Grzegorz Wang MANUAL DIFF REQ NO Normal [facility] Comment on above: Performed By: #### C BC #### [facility] [address] [place] [address] Dr. Grzegorz Wang MCH (RBC) [Entitic mass] 28.2 pg Normal 26.7-34.0 [facility] Comment on above: Performed By: #### C BC #### [facility] [address] [place] [address] Dr. Grzegorz Wang MCHC (RBC) [Mass/Vol] 32.6 g/dL Normal 29.9-35.2 [facility] Comment on above: Performed By: #### C BC #### [facility] [address] [place] [address] Dr. Grzegorz Wang MCV (RBC) [Entitic vol] 86.5 fL Normal 81.0-99.[address] [facility] Comment on above: Performed By: #### C BC #### [facility] [address] [place] [address] Dr. Grzegorz Wang MONO # 0.7 103/ul Normal 0.3-0.8 [facility] Comment on above: Performed By: #### C BC #### [facility] [address] [place] [address] Dr. Grzegorz Wang Monocytes/100 WBC (Bld) 11.1 % Normal 1.7-12.[address] [facility] Comment on above: Performed By: #### C BC #### [facility] [address] [place] [address] Dr. Grzegorz Wang NEUT # 3.1 103/ul Normal 1.4-6.5 [facility] Comment on above: Performed By: #### C BC #### [facility] [address] [place] [address] Dr. Grzegorz Wang Neutrophils/100 WBC (Bld) 52.4 % Normal 43.0-75.0 [facility] Comment on above: Performed By: #### C BC #### [facility] [address] [place] [address] Dr. Grzegorz Wang Platelet mean volume (Bld) [Entitic vol] 9.6 fL Normal 9.5-13.5 [facility] Comment on above: Performed By: #### C BC #### [facility] [address] [place] [address] Dr. Grzegorz Wang PLT 162 103/ul Normal 150-450 [facility] Comment on above: Performed By: #### C BC #### [facility] [address] [place] [address] Dr. Grzegorz Wang RBC 4.75 106/ul Normal 4.20-5.40 [facility] Comment on above: Performed By: #### C BC #### [facility] [address] [place] [address] Dr. Grzegorz Wang WBC 5.9 103/ul Normal 4.0-11.0 [facility] Comment on above: Performed By: #### C BC #### [facility] [address] [place] [address] Dr. Grzegorz Wang PROF 14(COMP METB)on 12-12-2 022 Albumin [Mass/Vol] 3.4 g/dL Normal 3.4-5.0 [facility] Comment on above: Performed By: #### E RUR #### [facility] [address] [place] [address] Dr. Grzegorz Wang Albumin/Globulin [Mass ratio] 1.0 {ratio} Normal [facility] Comment on above: Performed By: #### E RUR #### [facility] [address] [place] [address] Dr. Grzegorz Wang ALP [Catalytic activity/Vol] 102 U/L Normal 46-116 [facility] Comment on above: Performed By: #### E RUR #### [facility] [address] [place] [address] Dr. Grzegorz Wang ALT [Catalytic activity/Vol] 16 U/L Normal 14-59 [facility] Comment on above: Performed By: #### E RUR #### [facility] [address] [place] [address] Dr. Grzegorz Wang Anion gap [Moles/Vol] 10.6 mmol/L Normal [facility] Comment on above: Performed By: #### E RUR #### [facility] [address] [place] [address] Dr. Grzegorz Wang AST [Catalytic activity/Vol] 18 U/L Normal 15-37 [facility] Comment on above: Performed By: #### E RUR #### [facility] [address] [place] [address] Dr. Grzegorz Wang Bilirubin [Mass/Vol] 0.4 mg/dL Normal 0.2-1.0 [facility] Comment on above: Performed By: #### E RUR #### [facility] [address] [place] [address] Dr. Grzegorz Wang Calcium [Mass/Vol] 9.0 mg/dL Normal 8.5-10.1 [facility] Comment on above: Performed By: #### E RUR #### [facility] [address] [place] [address] Dr. Grzegorz Wang Chloride [Moles/Vol] 103 mmol/L Normal 98-107 [facility] Comment on above: Performed By: #### E RUR #### [facility] [address] [place] [address] [address] Grzegorz Wang CO2 [Moles/Vol] 31.4 mmol/L Normal 21.0-32.0 [facility] Comment on above: Performed By: #### E RUR #### [facility] [address] [place] [address] [address] Grzegorz Wang Creatinine [Mass/Vol] 0.80 mg/dL Normal 0.55-1.02 [facility] Comment on above: Performed By: #### E RUR #### [facility] [address] [place] [address] [address] Grzegorz Wang EGFR-AF BELARUSIAN >60 Normal >=60 [facility] Comment on above: Performed By: #### E RUR #### [facility] [address] [place] [address] [address] Grzegorz Wang EGFR-NON AF BELARUSIAN >60 Normal >=60 [facility] Comment on above: Performed By: #### E RUR #### [facility] [address] [place] [address] [address] Grzegorz Wang Globulin (S) [Mass/Vol] 3.4 g/dL Normal T [facility] Comment on above: Performed By: #### E RUR #### [facility] [address] [place] [address] [address] Grzegorz Wang Glucose [Mass/Vol] 78 mg/dL Normal 74-106 [facility] Comment on above: Performed By: #### E RUR #### [facility] [address] [place] [address] [address] Grzegorz Wang Potassium [Moles/Vol] 3.0 mmol/L Critically low 3.5-5.1 [facility] Comment on above: Performed By: #### E RUR #### [facility] [address] [place] [address] [address] Grzegorz Wang Protein [Mass/Vol] 6.8 g/dL Normal 6.4-8.2 [facility] Comment on above: Performed By: #### E RUR #### [facility] [address] [place] [address] [address] Grzegorz Wang Sodium [Moles/Vol] 142 mmol/L Normal 136-145 [facility] Comment on above: Performed By: #### E RUR #### [facility] [address] [place] [address] [address] Grzegorz Wang Urea nitrogen [Mass/Vol] 14.0 mg/dL Normal 7.0-18.0 [facility] Comment on above: Performed By: #### E RUR #### [facility] [address] [place] [address] [address] Grzegorz Wang Urea nitrogen/Creatinine [Mass ratio] 17.5 mg/mg Normal [facility] Comment on above: Performed By: #### E RUR #### [facility] [address] [place] [address] [address] Grzegorz Wang US JANETTE DOP LEG [...] by: MIRI BALTAZAR Date: 2022-01-22 16:38 Normal [facility] LIPID PROFILEon 01-18-2022 CHOL-HDL RATIO NORM SEE BELOW Normal [facility] Comment on above: Result Comment: 3.3 - 4.4 LOW RISK 4.4 - 7.1 AVERAGE RISK 7.1 - 11.0 MODERATE RISK >11.0 HIGH RISK Performed By: #### A MY, LIPA #### [facility] [address] [place] [address] [address] Grzegorz Wang Cholesterol [Mass/Vol] 125 mg/dL Normal <=200 Th [facility] Comment on above: Performed By: #### A MY, LIPA #### [facility] [address] [place] [address] [address] Grzegorz Wang Cholesterol in HDL [Mass/Vol] 69 mg/dL Critically high 40-60 [facility] Comment on above: Performed By: #### A MY, LIPA #### [facility] [address] [place] [address] [address] Grzegorz Wang Cholesterol in LDL [Mass/Vol] 40.0 mg/dL Normal [facility] Comment on above: Performed By: #### A MY, LIPA #### [facility] [address] [place] [address] [address] Grzegorz Wang Cholesterol.total/Cluadia sterol in HDL [Mass ratio] 1.8 {ratio} Normal [facility] Comment on above: Performed By: #### A BRAYDEN, LIPA #### [facility] [address] [place] [address] Dr. Grzegorz Wang HDL NORMAL > or = 60 mg/dl - LO W CARDIOVASCULAR RISK <40 mg/dl - HIGH CARDIOVASCULAR RISK Normal [facility] Comment on above: Performed By: #### A BRAYDEN LIPA #### [facility] [address] [place] [address] Dr. Grzegorz Wang LDL CALC NORMAL SEE BELOW Normal [facility] Comment on above: Result Comment: <100 mg/dl OPTIMAL 100 - 129 mg/dl NEAR OR ABOVE OPTIMAL 130 - 159 mg/dl BORDERLINE HIGH 160 - 189 mg/dl HIGH >190 mg/dl VERY HIGH Performed By: #### A BRAYDEN LIPA #### [facility] [address] [place] [address] [address] Grzegorz Wang Triglyceride [Mass/Vol] 80 mg/dL Normal <=150 T [facility] Comment on above: Performed By: #### A BRAYDEN LIPA #### [facility] [address] [place] [address] Dr. Grzegorz Wang VLDL CALC 16.0 mg/dL Normal [facility] Comment on above: Performed By: #### A BRAYDEN LIPA #### [facility] [address] [place] [address] [address] Grzegorz Wang US PELVISon 01-18-2022 US [...] MITZI CHAU Date: 2022-01-18 10:31 Normal [facility] XR CHEST 2 Von 01-03-2022 XR [...] MITZI CHAU Date: 2022-01-03 10:48 Normal [facility] US PELVISon 12-07-2021 US PELVIS EXAMINATION: [...] MITZI CHAU Date: 2021-12-07 17:20 Normal [facility] PROF CHEM 8 (BAS METB)on Anion gap [Moles/Vol] 13.0 mmol/L Normal [facility] Comment on above: Performed By: #### A BRAYDEN LIPA #### [facility] [address] [place] [address] Dr. Grzegorz Wang Calcium [Mass/Vol] 8.9 mg/dL Normal 8.5-10.1 [facility] Comment on above: Performed By: #### A BRAYDEN LIPA #### [facility] [address] [place] [address] Dr. Grzegorz Wang Chloride [Moles/Vol] 105 mmol/L Normal 98-107 [facility] Comment on above: Performed By: #### A BRAYDEN LIPA #### [facility] [address] [place] [address] Dr. Grzegorz Wang CO2 [Moles/Vol] 29.0 mmol/L Normal 21.0-32.0 [facility] Comment on above: Performed By: #### A BRAYDEN LIPA #### [facility] [address] [place] [address] Dr. Grzegorz Wang Creatinine [Mass/Vol] 0.79 mg/dL Normal 0.55-1.02 [facility] Comment on above: Performed By: #### A BRAYDEN LIPA #### [facility] [address] [place] [address] Dr. Grzegorz Wang EGFR-AF BELARUSIAN >60 Normal >=60 [facility] Comment on above: Performed By: #### A BRAYDEN LIPA #### [facility] [address] [place] [address] Dr. Grzegorz Wang EGFR-NON AF BELARUSIAN >60 Normal >=60 [facility] Comment on above: Performed By: #### A BRAYDEN LIPA #### [facility] [address] [place] [address] Dr. Grzegorz Wang Glucose [Mass/Vol] 79 mg/dL Normal 74-106 [facility] Comment on above: Performed By: #### A PHIL OWEN #### [facility] [address] [place] [address] Dr. Grzegorz Wang Potassium [Moles/Vol] 3.0 mmol/L Critically low 3.5-5.1 [facility] Comment on above: Performed By: #### A BRAYDEN LIPA #### [facility] [address] [place] [address] Dr. Grzegorz Wang Sodium [Moles/Vol] 144 mmol/L Normal 136-145 [facility] Comment on above: Performed By: #### A PHIL OWEN #### [facility] [address] [place] [address] Dr. Grzegorz Wang Urea nitrogen [Mass/Vol] 12.0 mg/dL Normal 7.0-18.0 [facility] Comment on above: Performed By: #### A PHIL OWEN #### [facility] [address] [place] [address] Dr. Grzegorz Wang Urea nitrogen/Creatinine [Mass ratio] 15.2 mg/mg Normal [facility] Comment on above: Performed By: #### A PHIL OWEN #### [facility] [address] [place] [address] Dr. Grzegorz Wang VITAMIN B12on 11-27-2021 Cobalamin (Vitamin B12) [Mass/Vol] 5661.0 pg/mL Critically high 193.0-986.0 [facility] Comment on above: Performed By: #### E RUR #### [facility] [address] [place] [address] Dr. Grzegorz Wang BNPon 11-26-2021 Natriuretic peptide B (Bld) [Mass/Vol] 1245.0 pg/mL Critically high <=900.0 [facility] Comment on above: Performed By: #### A PHIL OWEN #### [facility] [address] [place] [address] Dr. Grzegorz Wang Bacterial blood cultureOrder ed By: Ashleigh Rashid on 11-26-2021 Bacteria identified Cx Nom (Bld) NO GROWTH 5 DAYS [facility] CARDIAC BAMBI ADMITon 022 CK [Catalytic activity/Vol] 75 U/L Normal 26-192 [facility] Comment on above: Performed By: #### A MY, LIPA #### [facility] [address] [address] [address] Grzegorz Wang CK.MB [Mass/Vol] 1.58 ng/mL Normal <=3.60 [facility] Comment on above: Performed By: #### A MY, LIPA #### [facility] [address] [address] [address] Grzegorz Wang HSTROP 13.3 pg/mL Normal 4.0-51.3 [facility] Comment on above: Result Comment: CUT- OFF POINTS HAVE BEEN ESTABLISHED BASED ON THE FOURTH UNIVERSAL DEFINITIONS OF MYOCARDIAL INFARCTION. THE UPPER REFERENCE LIMIT (URL) OF TROPONIN, DEFINED THE 99TH PERCENTILE OF cTnI DISTRIBUTION IN A REFERENCE POPULATION, HAS BEEN CONFIRMED THE DECISION THRESHOLD FOR MO DIAGNOSIS. Performed By: #### A BRAYDEN, LIPA #### [facility] [address] [address] [address] Grzegorz Wang MITZI 85 ng/mL Critically high 9-82 [facility] Comment on above: Performed By: #### A BRAYDEN, LIPA #### [facility] [address] [address] [address] Grzegorz Wang CBC AUTO DIFFon 11-26-2021 BASO # 0.0 103/ul Normal 0.0-0.1 [facility] Comment on above: Performed By: #### A BRAYDEN, LIPA #### [facility] [address] [address] [address] Grzegorz Wang Basophils/100 WBC (Bld) 0.5 % Normal 0.2-2.[address] [facility] Comment on above: Performed By: #### A MY, LIPA #### [facility] [address] [address] [address] Grzegorz Wang EO # 0.1 103/ul Normal 0.0-0.7 [facility] Comment on above: Performed By: #### A MY LIPA #### [facility] [address] [place] [address] Dr. Grzegorz Wang Eosinophils/100 WBC (Bld) 1.3 % Normal 0.9-7.0 [facility] Comment on above: Performed By: #### A BRAYDEN LIPA #### [facility] [address] [place] [address] Dr. Grzegorz Wang Erythrocyte distribution width (RBC) [Ratio] 16.8 % Critically high 11.0-15.0 [facility] Comment on above: Performed By: #### A BRAYDEN LIPA #### [facility] [address] [place] [address] Dr. Grzegorz Wang Hematocrit (Bld) [Volume fraction] 36.6 % Normal 36.0-48.0 [facility] Comment on above: Performed By: #### A BRAYDEN LIPA #### [facility] [address] [place] [address] Dr. Grzegorz Wang Hemoglobin (Bld) [Mass/Vol] 12.1 g/dL Normal 12.0-16.0 [facility] Comment on above: Performed By: #### A BRAYDEN LIPA #### [facility] [address] [place] [address] Dr. Grzegorz Wang IG # 0.03 10e3/ul Normal 0.00-0.03 [facility] Comment on above: Performed By: #### A BRAYDEN LIPA #### [facility] [address] [place] [address] Dr. Grzegorz Wang IG % 0.5 % Normal 0.0-0.5 [facility] Comment on above: Performed By: #### A BRAYDEN LIPA #### [facility] [address] [place] [address] Dr. Grzegorz Wang LYMPH # 0.9 103/ul Critically low 1.2-3.8 [facility] Comment on above: Performed By: #### A BRAYDEN LIPA #### [facility] [address] [place] [address] Dr. Grzegorz Wang Lymphocytes/100 WBC (Bld) 15.4 % Critically low 20.5-60.0 [facility] Comment on above: Performed By: #### A BRAYDEN LIPA #### [facility] [address] [place] [address] Dr. Grzegorz Wang MANUAL DIFF REQ NO Normal [facility] Comment on above: Performed By: #### A MY LIPA #### [facility] [address] [place] [address] Dr. Grzegorz Wang MCH (RBC) [Entitic mass] 27.7 pg Normal 26.7-34.0 [facility] Comment on above: Performed By: #### A BRAYDEN LIPA #### [facility] [address] [place] [address] Dr. Grzegorz Wang MCHC (RBC) [Mass/Vol] 33.1 g/dL Normal 29.9-35.2 [facility] Comment on above: Performed By: #### A BRAYDEN LIPA #### [facility] [address] [place] [address] Dr. Grzegorz Wang MCV (RBC) [Entitic vol] 83.8 fL Normal 81.0-99.[address] [facility] Comment on above: Performed By: #### A BRAYDEN LIPA #### [facility] [address] [place] [address] Dr. Grzegorz Wang MONO # 0.5 103/ul Normal 0.3-0.8 [facility] Comment on above: Performed By: #### A BRAYDEN LIPA #### [facility] [address] [place] [address] Dr. Grzegorz Wang Monocytes/100 WBC (Bld) 7.8 % Normal 1.7-12.[address] [facility] Comment on above: Performed By: #### A BRAYDEN LIPA #### [facility] [address] [place] [address] Dr. Grzegorz Wang NEUT # 4.5 103/ul Normal 1.4-6.5 [facility] Comment on above: Performed By: #### A BRAYDEN LIPA #### [facility] [address] [place] [address] Dr. Grzegorz Wang Neutrophils/100 WBC (Bld) 74.5 % Normal 43.0-75.0 [facility] Comment on above: Performed By: #### A BRAYDEN LIPA #### [facility] [address] [address] [address] Grzegorz Wang Platelet mean volume (Bld) [Entitic vol] 11.2 fL Normal 9.5-13.5 [facility] Comment on above: Performed By: #### Luna OWEN LIPA #### [facility] [address] [address] [address] Grzegorz Wang PLT 187 103/ul Normal 150-450 [facility] Comment on above: Performed By: #### Luna OWEN LIPA #### [facility] [address] [address] [address] Grzegorz Wang RBC 4.37 106/ul Normal 4.20-5.40 [facility] Comment on above: Performed By: #### Luna OWEN LIPA #### [facility] [address] [address] [address] Grzegorz Wang WBC 6.0 103/ul Normal 4.0-11.0 [facility] Comment on above: Performed By: #### Luna OWEN LIPA #### [facility] [address] [address] [address] ABD/PELVIS WO CONon [...] by: MANDI MANRIQUEZ Date: 2021-11-26 15:08 Normal [facility] CT CSPINE WO CONon 2 CT CSPINE [...] SHANIA WASHINGTON Date: 2021-11-26 14:44 Normal [facility] URINE PROFILEon 2 Bilirubin Ql (U) Negative Normal NEGATIVE [facility] Comment on above: Performed By: #### C BC #### [facility] [address] [place] [address] Dr. Grzegorz Wang Clarity (U) CLEAR Normal CLEAR [facility] Comment on above: Performed By: #### C BC #### [facility] [address] [address] [address] Grzegorz Wang Color (U) LT. YELLOW Normal YELLOW [facility] Comment on above: Performed By: #### C BC #### [facility] [address] [address] [address] Grzegorz PÉREZ A micrscopic examination will be performed if indicated. Normal [facility] Comment on above: Performed By: #### C BC #### [facility] [address] [address] [address] Grzegorz Wang Glucose Ql (U) Negative Normal NEGATIVE [facility] Comment on above: Performed By: #### C BC #### [facility] [address] [address] [address] Grzegorz Wang Hemoglobin Ql (U) TRACE-INTACT Abnormal NEGATIVE [facility] Comment on above: Performed By: #### C BC #### [facility] [address] [place] [address] Dr. Grzegorz Wang Ketones Ql (U) Negative Normal NEGATIVE [facility] Comment on above: Performed By: #### C BC #### [facility] [address] [place] [address] Dr. Grzegorz Wang LEUKOCYTES Negative Normal NEGATIVE [facility] Comment on above: Performed By: #### C BC #### [facility] [address] [place] [address] Dr. Grzegorz Wang Nitrite Ql (U) Negative Normal NEGATIVE [facility] Comment on above: Performed By: #### C BC #### [facility] [address] [place] [address] Dr. Grzegorz Wang pH (U) 5.5 [pH] Normal 5-9 [facility] Comment on above: Performed By: #### C BC #### [facility] [address] [place] [address] Dr. Grzegorz Wang SPEC GRAVITY <=1.005 Abnormal 1.005-<=1.[address] [place] [address] Comment on above: Performed By: #### C BC #### [facility] [address] [place] [address] Dr. Grzegorz Wang UA PROTEIN Negative Normal NEGATIVE/ TRACE [facility] Comment on above: Performed By: #### C BC #### [facility] [address] [place] [address] Dr. Grzegorz Wang UR MICRO IND INDICATED Normal [facility] Comment on above: Performed By: #### C BC #### [facility] [address] [place] [address] Dr. Grzegorz Wang Urobilinogen Qn (U) 0.2 {Lidya'U}/dL Normal 0.2 - 1. 0 [facility] Comment on above: Performed By: #### C BC #### [facility] [address] [place] [address] Dr. Grzegorz Wang PROF 14(COMP METB)on 11-26- 022 Albumin [Mass/Vol] 3.5 g/dL Normal 3.4-5.0 [facility] Comment on above: Performed By: #### A MY, LIPA #### [facility] [address] [address] [address] Grzegorz Wang Albumin/Globulin [Mass ratio] 1.1 {ratio} Normal [facility] Comment on above: Performed By: #### A MY, LIPA #### [facility] [address] [address] [address] Grzegorz Wang ALP [Catalytic activity/Vol] 89 U/L Normal 46-116 [facility] Comment on above: Performed By: #### A MY, LIPA #### [facility] [address] [address] [address] Grzegorz Wang ALT [Catalytic activity/Vol] 22 U/L Normal 14-59 [facility] Comment on above: Performed By: #### A MY, LIPA #### [facility] [address] [address] [address] Grzegorz Wang Anion gap [Moles/Vol] 10.2 mmol/L Normal [facility] Comment on above: Performed By: #### A MY, LIPA #### [facility] [address] [address] [address] Grzegorz Wang AST [Catalytic activity/Vol] 18 U/L Normal 15-37 [facility] Comment on above: Performed By: #### A MY, LIPA #### [facility] [address] [address] [address] Grzegorz Wang Bilirubin [Mass/Vol] 0.6 mg/dL Normal 0.2-1.0 [facility] Comment on above: Performed By: #### A MY, LIPA #### [facility] [address] [address] [address] Grzegorz Wang Calcium [Mass/Vol] 9.1 mg/dL Normal 8.5-10.1 [facility] Comment on above: Performed By: #### A MY, LIPA #### [facility] [address] [address] [address] Grzegorz Wang Chloride [Moles/Vol] 106 mmol/L Normal 98-107 [facility] Comment on above: Performed By: #### A MY, LIPA #### [facility] [address] [address] [address] Grzegorz Wang CO2 [Moles/Vol] 29.5 mmol/L Normal 21.0-32.0 [facility] Comment on above: Performed By: #### A MY, LIPA #### [facility] [address] [address] [address] Grzegorz Wang Creatinine [Mass/Vol] 0.86 mg/dL Normal 0.55-1.02 [facility] Comment on above: Performed By: #### A MY, LIPA #### [facility] [address] [address] [address] Grzegorz Wang EGFR-AF BELARUSIAN >60 Normal >=60 [facility] Comment on above: Performed By: #### A MY, LIPA #### [facility] [address] [address] [address] Grzegorz Wang EGFR-NON AF BELARUSIAN >60 Normal >=60 [facility] Comment on above: Performed By: #### A MY, LIPA #### [facility] [address] [address] [address] Grzegorz Wang Globulin (S) [Mass/Vol] 3.1 g/dL Normal [facility] Comment on above: Performed By: #### A MY, LIPA #### [facility] [address] [address] [address] Grzegorz Wang Glucose [Mass/Vol] 98 mg/dL Normal 74-106 [facility] Comment on above: Performed By: #### A MY, LIPA #### [facility] [address] [address] [address] Grzegorz Wang Potassium [Moles/Vol] 2.7 mmol/L Critically low 3.5-5.1 [facility] Comment on above: Performed By: #### A MY, LIPA #### [facility] [address] [address] [address] Grzegorz Wang Protein [Mass/Vol] 6.6 g/dL Normal 6.4-8.2 [facility] Comment on above: Performed By: #### A BRAYDEN LIPA #### [facility] [address] [place] [address] Dr. Grzegorz Wang Sodium [Moles/Vol] 143 mmol/L Normal 136-145 [facility] Comment on above: Performed By: #### A BRAYDEN LIPA #### [facility] [address] [place] [address] Dr. Grzegorz Wang Urea nitrogen [Mass/Vol] 12.0 mg/dL Normal 7.0-18.0 [facility] Comment on above: Performed By: #### A BRAYDEN LIPA #### [facility] [address] [place] [address] Dr. Grzegorz Wang Urea nitrogen/Creatinine [Mass ratio] 14.0 mg/mg Normal [facility] Comment on above: Performed By: #### A BRAYDEN LIPA #### [facility] [address] [place] [address] Dr. Grzegorz Wang PROTIMEon 11-26-2021 INR Coag (PPP) [Relative time] 1.00 {INR} Normal [facility] Comment on above: Performed By: #### C BC #### [facility] [address] [place] [address] Dr. Grzegorz Wang INR GUIDELINES SEE BELOW Normal [facility] Comment on above: Result Comment: [place] RED INR: 2.0 - 3.0 CONDITIONS NOT LISTED BELOW 2.5 - 3.5 FOR PROSTHETIC HEART VALVE REPLACEMENT 2.5 - 3.5 RECURRENT THROMBOSIS Performed By: #### C BC #### [facility] [address] [place] [address] Dr. Grzegorz Wang PT Coag (PPP) [Time] 10.8 s Normal 9.0-11.6 [facility] Comment on above: Performed By: #### C BC #### [facility] [address] [place] [address] Dr. Grzegorz Wang PTTon 11-26-2021 aPTT Coag (Bld) [Time] 23.1 s Normal 22.3-36.2 [facility] Comment on above: Performed By: #### C BC #### [facility] [address] [place] [address] Dr. Grzegorz Wang URINE MICROSCOPIC ONLYon BACTERIA NONE SEEN Normal NONE SEEN [facility] Comment on above: Performed By: #### C BC #### [facility] [address] [place] [address] Dr. Grzegorz Wang Bacteria identified Cx Nom (U) NOT INDICATED Normal [facility] Comment on above: Performed By: #### C BC #### [facility] [address] [place] [address] Dr. Grzegorz Wang CAST NONE SEEN Normal NONE SEEN [facility] Comment on above: Performed By: #### C BC #### [facility] [address] [place] [address] Dr. Grzegorz Wang Crystals LM Nom (Urine sed) NONE SEEN Normal NONE SEEN [facility] Comment on above: Performed By: #### C BC #### [facility] [address] [place] [address] Dr. Grzegorz Wang Epithelial cells LM Ql (Urine sed) FEW Abnormal NONE SEEN /RARE [facility] Comment on above: Performed By: #### C BC #### [facility] [address] [place] [address] Dr. Grzegorz Wang MUCOUS NONE SEEN Normal NONE SEEN [facility] Comment on above: Performed By: #### C BC #### [facility] [address] [place] [address] Dr. Grzegorz Wang RBC 0-2 Normal 0-2 [facility] Comment on above: Performed By: #### C BC #### [facility] [address] [place] [address] Dr. Grzegorz Wang WBC 0-2 Abnormal NONE SEEN [facility] Comment on above: Performed By: #### C BC #### [facility] [address] [place] [address] Dr. Grzegorz Wang XR CHEST 1 Von [...] by: NATACHA CERNA Date: 2021-11-26 14:21 Normal [facility] CT BRAIN HEAD WO CONTRASTon 11-24-2021 CT [...] AGUILAR MD Signed Out: 11/24/21 14:21:18 Normal [facility] ED Adult Data - Texton 11-24 [...] PNED ; Probability: 0 ; Diagnosis Code: [id number] Fall Date: 11/24/2021 ; Diagnosis Type: Reason For Visit ; Confirmation: Confirmed ; Clinical Dx: Fall ; Classification: Medical ; Clinical Service: Emergency medicine ; Code: PNED ; Probability: 0 ; Diagnosis Code: [id number] Procedure History ED Devices Present on Arrival [...] risk situation (congregated living, hemodialysis, infusion clinic, usp, assisted living, detention, homeless detention, etc.)? : No Jennifer Mccarthy RN - 11/24/2021 15:25 EDT Normal [facility] ED Discharge Educationon ED Discharge Education Dermatology Cuts Closed With [place]: Care Instructions Your Care Instructions A cut can happen anywhere on your body. The doctor used kemi to close the cut. [place] easily and quickly close a cut, which [...] your doctor if you can take an qwao-eyd-lofhrdb medicine. When should you call for help? [...] Where can you learn more? Go to https://www.MonkeyFind/patientEd Enter E525 in the search box to learn more about Cuts Closed With [place]: Care Instructions. Current as of: April 08, 2019 Content Version: 12.7 ? qualifyor. Care instructions adapted under license by your healthcare professional. If you have questions about a medical condition or this instruction, always ask your healthcare professional. qualify[employer] disclaims any warranty or liability for your [...] she will (more content not included)... Normal [facility] ED Emergency Severity Index Adult-Texton 11-24-2021 [...] Mccarthy RN - 11/24/2021 12:33 EDT Normal [facility] ED Nrsing Adlt Triage Sep Sc [...] Mccarthy RN - 11/24/2021 13:00 EDT Normal [facility] ED Patient Summaryon 022 ED Patient Summary [facility] Emergency Department Discharge Instructions [address] [place] [address] \.br\(Patient Copy)\.br\ \.br\Name: OZZIE GIFFORD : 1950 \.br\Allergies: penicillin\.br\Diagno sis: Accidental fall; CHI (closed head injury); Contusion of rib on right side; Laceration of scalp\.br\ \.br\ Visit Date: 11/24/2021 12:30:03 \.br\ Current Date Time: 11/24/2021 17:30:08 \.br\Address: [address] [place] [address] [place] [address] \.br\ \.br\ \.br\Primary Care Provider: \.br\Name: NO FAMILY PHYSICIAN, 837\.br\Phone: \.br\ \.br\Emergency Department Care Providers: \.br\ Primary Physician: LUIS MCKEON MD \.br\ \.br\ \.br\.br\Thank you for choosing [place] [facility] for your emergency care. You are very important to us. Our goal is to demonstrate our high quality medical care, and provide you with a very good patient experience.\.br\.br\ You may receive a survey about our service. Please take the time to complete the survey and return it so we can continue to enhance our service.\.br\.br\Maxx nk you again for allowing the [place] [facility] Emergency Department to care for your medical needs. If you have questions about your care or follow up information please contact us at [phone].\.br\.b r\ Follow-Up Instructions\.br\____ _\.br\OZZIE GIFFORD has been given these follow-up instructions:\.br\.b r\.br\With: Address: When: \.br\[facility], [facility] [address], [address] [place] [address]\.br\ Business (1) Within 7 to 10 days \.br\.br\.br\With: Address: When: \.br\[address] NO FAMILY PHYSICIAN Within 3 to 5 days \.br\.br\.br\.br\ .br\Patient Education Materials\.br\ \. br\OZZIE GIFFORD has been given the following patient education materials:\.br\.br\C uts Closed With [place]: Care Instructions\.br\Your Care Instructions\.br\A cut can happen anywhere on your body.\.br\The doctor used kemi to close the cut. [place] easily and quickly close a cut, which [...] your doctor if you can take an uprz-ktc-wsxpaxm medicine.\.br\When should you call for help?\.br\ Call [...] get b (more content not included)... Normal [facility] ED Physician Reporton 2021 ED Physician [...] The location where the incident occurred was [facility]. Location: Posterior head. The character of symptoms is pain. Therapy today: see nurses notes. Associated symptoms: denies loss of consciousness. This is a 71 y/o female presenting to the ED via EMS for evaluation of a mechanical fall. The [place] and she was going down steps and [...] WO CONTRAST (more content not included)... Normal [facility] ED Pre-Arrival Formon 2021 ED Pre-Arrival Form Pre-Arrival Summary Name: KARTIK, Current Date: 11/24/2021 12:31:19 EDT Gender: Date of : Age: Pre-Arrival Type: EMS ETA: 11/24/2021 12:53:00 EDT Primary Care Physician: Presenting Problem: Pre-Arrival User: Kailyn Jacobs RN Referring Source: Location: [address] [place] [address] Emergency Department [address] [place] [address] Notes: Vital Signs: Doctor Call Back: DNR Status: Miscellaneous Issues: Normal [facility] ED Progress Noteon ED Progress Note [...] understanding, pt ambulatory with steady gait Normal [facility] ED Triage Adult-Texton 11-24 ED Triage [...] PNED ; Probability: 0 ; Diagnosis Code: [id number] (As Of: 11/24/2021 13:00:25 EDT) Vitals/Ht/Wt Temperature [...] Mccarthy RN - 11/24/2021 12:59 EDT Normal [facility] Urine culture routineOrdered By: Rafiq Bahena on 11-23-2021 Bacteria identified Cx Nom (U) Escherichia coli [facility] Albumin [Mass/volume] in Ser um or PlasmaOrdered By: Ashleigh Rashid on 11-22-2021 Albumin [Mass/Vol] 3.0 g/dL 3.2-5.5 [facility] Basophils Auto (Bld) [#/Vol] Ordered By: Ashleigh Rashid on 11-22-2021 Basophils (Bld) [#/Vol] 0.0 10*3/uL 0.0-0.2 [facility] Basophils/100 WBC Auto (Bld) Ordered By: Ashleigh Rashid on 11-22-2021 Basophils/100 WBC (Bld) 0.6 % . [facility] Creatinine and Glomerular fi ltration rate.predicted panel (S/P/Bld)Ordered By: Ashleigh Rashid on 11-22-2021 Creatinine [Mass/Vol] 1.10 mg/dL 0.44-1.03 [facility] Comment on above: Delta: 2.08 on 11/21 Eosinophils Auto (Bld) [#/Vo l]Ordered By: Ashleigh Rashid on 11-22-2021 Eosinophils (Bld) [#/Vol] 0.2 10*3/uL 0.0-0.45 [facility] Eosinophils/100 WBC Auto (Bl d)Ordered By: Ashleigh Rashid on 11-22-2021 Eosinophils/100 WBC (Bld) 4.4 % . [facility] Erythrocyte distribution wid th Auto (RBC) [Ratio]Ordered By: Ashleigh Rashid on 11-22-2021 Erythrocyte distribution width (RBC) [Ratio] 20.7 % 11.9-15.3 [facility] Estimated glomerular filtrat ion rate (GFR) non- AmericanOrdered By: Ashleigh Rashid on 11-22-2021 GFR/1.73 sq M.predicted among non-blacks MDRD (S/P/Bld) [Vol rate/Area] 49 mL/Min [facility] Globulin Calc (S) [Mass/Vol] Ordered By: Ashleigh Rashid on 11-22-2021 Globulin (S) [Mass/Vol] 2.4 g/dL [facility] Hematocrit Auto (Bld) [Volum e fraction]Ordered By: Ashleigh Rashid on 11-22-2021 Hematocrit (Bld) [Volume fraction] 36.9 % 34.0-46.4 [facility] Hemoglobin [Mass/volume] in BloodOrdered By: Ashleigh Rashid on 11-22-2021 Hemoglobin (Bld) [Mass/Vol] 12.1 g/dL 11.8-15.4 [facility] Laboratory - Chemistry and C hemistry - challengeOrdered By: Ashleigh Rashid on 11-22-2021 Magnesium [Mass/Vol] 2.1 mg/dL 1.6-2.6 [facility] Laboratory - Hematology and Cell countsOrdered By: Ashleigh Rashid on 11-22-2021 Nucleated RBC/100 WBC (Bld) [Ratio] 0.1 % 0-0.5 [facility] Leukocytes [#/volume] in Blo od by Automated countOrdered By: Ashleigh Rashid on 11-22-2021 WBC (Bld) [#/Vol] 4.7 10*3/uL 4.5-11.0 [facility] Lymphocytes Auto (Bld) [#/Vo l]Ordered By: Ashleigh Rashid on 11-22-2021 Lymphocytes (Bld) [#/Vol] 1.2 10*3/uL 1.00-4.8 [facility] Lymphocytes/100 WBC Auto (Bl d)Ordered By: Ashleigh Rashid on 11-22-2021 Lymphocytes/100 WBC (Bld) 26.0 % . [facility] MCH Auto (RBC) [Entitic mass ]Ordered By: Ashleigh Rashid on 11-22-2021 MCH (RBC) [Entitic mass] 27.2 pg 24.7-34.3 [facility] MCHC Auto (RBC) [Mass/Vol]Or dered By: Ashleigh Rashid on 11-22-2021 MCHC (RBC) [Mass/Vol] 32.6 g/dL 32.0-35.0 [facility] MCV Auto (RBC) [Entitic vol] Ordered By: Ashleigh Rashid on 11-22-2021 MCV (RBC) [Entitic vol] 83.5 fL 80-100 [facility] Monocytes Auto (Bld) [#/Vol] Ordered By: Ashleigh Rashid on 11-22-2021 Monocytes (Bld) [#/Vol] 0.4 10*3/uL 0.0-0.8 [facility] Monocytes/100 WBC Auto (Bld) Ordered By: Ashleigh Rashid on 11-22-2021 Monocytes/100 WBC (Bld) 8.4 % . F [facility] Neutrophils Auto (Bld) [#/Vo l]Ordered By: Ashleigh Rashid on 11-22-2021 Neutrophils (Bld) [#/Vol] 2.8 10*3/uL 1.8-7.7 [facility] Neutrophils/100 WBC Auto (Bl d)Ordered By: Ashleigh Rashid on 11-22-2021 Neutrophils/100 WBC (Bld) 60.6 % . [facility] No Panel InformationOrdered By: Ashleigh Rashid on 11-22-2021 Estimated GFR () 59 mL/Min [facility] Comment on above: GFR estimated refere nce range: According to KDOQI guidelines, <60 ml/min/1.73m2 is sufficient to diagnose a patient with chronic kidney disease. Pharmacy Creatinine Clearance (Chem 44.22 [facility] Platelet mean volume Auto (B ld) [Entitic vol]Ordered By: Ashleigh Rashid on 11-22-2021 Platelet mean volume (Bld) [Entitic vol] 9.7 fL 6.3-10.7 [facility] Platelets Auto (Bld) [#/Vol] Ordered By: Ashleigh Rashid on 11-22-2021 Platelets (Bld) [#/Vol] 184 10*3/uL 150-450 [facility] Protein [Mass/volume] in Ser um or PlasmaOrdered By: Ashleigh Rashid on 11-22-2021 Protein [Mass/Vol] 5.4 g/dL 6.1-7.9 [facility] RBC Auto (Bld) [#/Vol]Ordere d By: Ashleigh Rashid on 11-22-2021 RBC (Bld) [#/Vol] 4.43 10*6/uL 3.60-5.00 [facility] Serum or plasma alanine zapata otransferase measurement without P-5'-P (enzymatic activiOrdered By: Ashleigh Rashid on 11-22-2021 ALT No additional P-5'-P [Catalytic activity/Vol] 16 U/L 10-60 [facility] Serum or plasma albumin/glob ulin mass ratioOrdered By: Ashleigh Rashid on 11-22-2021 Albumin/Globulin [Mass ratio] 1.3 {ratio} [facility] Serum or plasma alkaline brandy sphatase measurement (enzymatic activity/volume)Ordered By: Ashleigh Rashid on 11-22-2021 ALP [Catalytic activity/Vol] 70 U/L 32-92 [facility] Serum or plasma anion gap de terminationOrdered By: Ashleigh Rashid on 11-22-2021 Anion gap [Moles/Vol] 12.2 mmol/L 6.0-15.0 [facility] Serum or plasma aspartate am inotransferase measurement (enzymatic activity/volume)Ordered By: Ashleigh Rashid on 11-22-2021 AST [Catalytic activity/Vol] 15 U/L 10-42 [facility] Serum or plasma calcium lay urement (mass/volume)Ordered By: Ashleigh Rashid on 11-22-2021 Calcium [Mass/Vol] 8.9 mg/dL 8.2-10.2 [facility] Serum or plasma chloride rosaline surement (moles/volume)Ordered By: Ashleigh Rashid on 11-22-2021 Chloride [Moles/Vol] 115 mmol/L 95-114 [facility] Serum or plasma glucose lay urement (mass/volume)Ordered By: Ashleigh Rashid on 11-22-2021 Glucose [Mass/Vol] 93 mg/dL 70-100 [facility] Comment on above: ADA recommended refe rence rangeRandom Glucose Reference Range is dependent on time and content of last meal. Glucose of more than 200 mg/dL in a nonstressed, ambulatory subject supports the diagnosis of Diabetes Mellitus. Serum or plasma potassium me asurement (moles/volume)Ordered By: Ashleigh Rashid on 11-22-2021 Potassium [Moles/Vol] 3.1 mmol/L 3.5-5.1 [facility] Serum or plasma sodium measu rement (moles/volume)Ordered By: Ashleigh Rashid on 11-22-2021 Sodium [Moles/Vol] 147 mmol/L 136-146 [facility] Serum or plasma total biliru bin measurement (mass/volume)Ordered By: Ashleigh Rashid on 11-22-2021 Bilirubin [Mass/Vol] 0.7 mg/dL 0.3-1.2 [facility] Serum or plasma total carbon dioxide measurement (moles/volume)Ordered By: Ashleigh Rashid on 11-22-2021 CO2 [Moles/Vol] 22.9 mmol/L 22.0-30.0 [facility] Serum or plasma urea nitroge n measurement (mass/volume)Ordered By: Ashleigh Rashid on 11-22-2021 Urea nitrogen [Mass/Vol] 28 mg/dL 11-03 [facility] Amphetamine Screen Ql (U)Ord ered By: Rafiq Bahena on 11-21-2021 Amphetamines Ql (U) Negative Negative [facility] Automated erythrocytes count in urine sediment (number/area)Ordered By: Rafiq Bahena on 11-21-2021 RBC Auto (Urine sed) [#/Area] 0-1 [HPF] 0-4 [facility] Automated leukocytes count i n urine sediment (number/area)Ordered By: Rafiq Bahena on 11-21-2021 WBC Auto (Urine sed) [#/Area] 3-4 [HPF] 0-4 [facility] Barbiturates [Presence] in U rineOrdered By: Rafiq Bahena on 11-21-2021 Barbiturates Ql (U) Negative Negative [facility] Basophils Auto (Bld) [#/Vol] Ordered By: Rafiq Bahena on 11-21-2021 Basophils (Bld) [#/Vol] 0.0 10*3/uL 0.0-0.2 [facility] Basophils/100 WBC Auto (Bld) Ordered By: Rafiq Bahena on 11-21-2021 Basophils/100 WBC (Bld) 0.8 % . F [facility] Benzodiazepines [Presence] i n UrineOrdered By: Rafiq Bahena on 11-21-2021 Benzodiazepines Ql (U) Negative Negative [facility] Bilirubin Test strip Ql (U)O rdered By: Rafiq Bahena on 11-21-2021 Bilirubin Ql (U) Negative Negative [facility] Blood hemoglobin measurement (mass/volume)Ordered By: Rafiq Bahena on 11-21-2021 Hemoglobin (Bld) [Mass/Vol] 11.6 g/dL 11.8-15.4 [facility] Blood leukocytes automated c ount (number/volume)Ordered By: Rafiq Bahena on 11-21-2021 WBC (Bld) [#/Vol] 5.3 10*3/uL 4.5-11.0 [facility] Body fluid albumin measureme nt (mass/volume)Ordered By: Rafiq Bahena on 11-21-2021 Albumin (Body fld) [Mass/Vol] 3.4 g/dL 3.2-5.5 [facility] COVID CepheidOrdered By: Dagoberto nadege Gay on 11-21-2021 SARS-CoV-2 (COVID-19) Ab IA Ql Negative Negative [facility] Comment on above: This is a duplicate [employer] Xpert Xpress CoV-2/Flu/RSV Plus RNA by RT-PCR result to be used for statistical tracking purpose only. SARS-CoV-2 (COVID-19) RNA SIOBHAN+probe Ql (Unsp spec) [facility] COVID-19 Positive/NegativeOr dered By: Rafiq Bahena on 11-21-2021 SARS-CoV-2 (COVID-19) N gene SIOBHAN+probe Ql (Resp) Indeterminate Negative [facility] Comment on above: Testing for SARS-CoV -2 by RT-PCRThis test was developed and its performance characteristics determined by [employer] and validated at the [facility]. This test has not been FDA [...] (COVID-19) Ag IA.rapid Ql (Resp) Negative Negative [facility] Comment on above: This is a duplicate [employer]iss[employer] SARS Antigen ([employer]ALK[employer]) result to be used for statistical tracking purpose only. Cannabinoids [Presence] in U rine by Screen methodOrdered By: Rafiq Bahena on 11-21-2021 Cannabinoids Screen Ql (U) Negative Negative [facility] Comment on above: These are unconfirme d results and should not be used for legal purposes. Drug Cut-Off Concentration: AMPH 1000 ng/mL RONALD 200 ng/mL CARMELA 200 ng/mL COCM 300 ng/mL OP 300 ng/mL PCP 25 ng/mL THC 20 ng/mL Color Auto (U)Ordered By: Vishnu Bahena on 11-21-2021 Color (U) Yellow Yellow [facility] Creatinine and Glomerular fi ltration rate.predicted panel (S/P/Bld)Ordered By: Rafiq Bahena on 11-21-2021 Creatinine [Mass/Vol] 2.08 mg/dL 0.44-1.03 [facility] Eosinophils Auto (Bld) [#/Vo l]Ordered By: Rafiq Bahena on 11-21-2021 Eosinophils (Bld) [#/Vol] 0.2 10*3/uL 0.0-0.45 [facility] Eosinophils/100 WBC Auto (Bl d)Ordered By: Rafiq Bahena on 11-21-2021 Eosinophils/100 WBC (Bld) 3.7 % . [facility] Erythrocyte distribution wid th Auto (RBC) [Ratio]Ordered By: Rafiq Bahena on 11-21-2021 Erythrocyte distribution width (RBC) [Ratio] 20.4 % 11.9-15.3 [facility] Estimated glomerular filtrat ion rate (GFR) non- AmericanOrdered By: Rafiq Bahena on 11-21-2021 GFR/1.73 sq M.predicted among non-blacks MDRD (S/P/Bld) [Vol rate/Area] 23 mL/Min [facility] Globulin Calc (S) [Mass/Vol] Ordered By: Rafiq Bahena on 11-21-2021 Globulin (S) [Mass/Vol] 2.1 g/dL F [facility] Glucose Glucometer (BldC) [M ass/Vol]Ordered By: Rafiq Bahena on 11-21-2021 Glucose [Mass/Vol] 134 mg/dL [facility] Comment on above: Random Glucose Refer ence Range is dependent on time and content of last meal. Glucose of more than 200 mg/dL in a nonstressed, ambulatory subject supports the diagnosis of Diabetes Mellitus. Hematocrit Auto (Bld) [Volum e fraction]Ordered By: Rafiq Bahena on 11-21-2021 Hematocrit (Bld) [Volume fraction] 35.6 % 34.0-46.4 [facility] Ketones Auto test strip (U) [Mass/Vol]Ordered By: Rafiq Bahena on 11-21-2021 Ketones (U) [Mass/Vol] Negative Negative Fi [facility] Laboratory - Chemistry and C hemistry - challengeOrdered By: Rafiq Bahena on 11-21-2021 CO2 [Moles/Vol] 23.8 mmol/L 23.0-27.0 [facility] HCO3 (Bld) [Moles/Vol] 22.6 mmol/L 23.0-29.0 [facility] Laboratory - Drug toxicology Ordered By: Rafiq Bahena on 11-21-2021 Opiates Ql (U) Negative Negative [facility] Laboratory - Hematology and Cell countsOrdered By: Rafiq Bahena on 11-21-2021 Nucleated RBC/100 WBC (Bld) [Ratio] 0.0 % 0-0.5 [facility] Laboratory - UrinalysisOrder ed By: Rafiq Bahena on 11-21-2021 Hyaline casts LM Ql (Urine sed) 0-8 [LPF] 0-8 [facility] Lymphocytes Auto (Bld) [#/Vo l]Ordered By: Rafiq Bahena on 11-21-2021 Lymphocytes (Bld) [#/Vol] 1.1 10*3/uL 1.00-4.8 [facility] Lymphocytes/100 WBC Auto (Bl d)Ordered By: Rafiq Bahena on 11-21-2021 Lymphocytes/100 WBC (Bld) 20.4 % . [facility] MCH Auto (RBC) [Entitic mass ]Ordered By: Rafiq Bahena on 11-21-2021 MCH (RBC) [Entitic mass] 26.9 pg 24.7-34.3 [facility] MCHC Auto (RBC) [Mass/Vol]Or dered By: Rafiq Bahena on 11-21-2021 MCHC (RBC) [Mass/Vol] 32.6 g/dL 32.0-35.0 [facility] MCV Auto (RBC) [Entitic vol] Ordered By: Rafiq Bahena on 11-21-2021 MCV (RBC) [Entitic vol] 82.5 fL 80-100 F [facility] Monocyte %Ordered By: Rafiq Bahena on 11-21-2021 Monocyte % 17 umol/L 11- [facility] Monocytes Auto (Bld) [#/Vol] Ordered By: Rafiq Bahena on 11-21-2021 Monocytes (Bld) [#/Vol] 0.5 10*3/uL 0.0-0.8 [facility] Monocytes/100 WBC Auto (Bld) Ordered By: Rafiq Bahena on 11-21-2021 Monocytes/100 WBC (Bld) 9.9 % . F [facility] Neutrophils Auto (Bld) [#/Vo l]Ordered By: Rafiq Bahena on 11-21-2021 Neutrophils (Bld) [#/Vol] 3.5 10*3/uL 1.8-7.7 [facility] Neutrophils/100 WBC Auto (Bl d)Ordered By: Rafiq Bahena on 11-21-2021 Neutrophils/100 WBC (Bld) 65.2 % . [facility] Nitrite Test strip Ql (U)Ord ered By: Rafiq Bahena on 11-21-2021 Nitrite Ql (U) Positive Negative [facility] No Panel InformationOrdered By: Ashleigh Rashid on 11-21-2021 Vitamin B12 Level > 7500 pg/mL 180-914 [facility] No Panel InformationOrdered By: Rafiq Bahena on 11-21-2021 Arterial Blood Base Excess -1.9 mmol/L -3.0-3.0 [facility] Arterial Blood Oxygen Content 7.1 mmol/L 6.6-9.7 [facility] Arterial Blood Oxygen Saturation 95.9 % 95.0-100.0 [facility] Arterial Blood Partial Pressure CO2 37.8 mm[Hg] 35.0-45.0 [facility] Arterial Blood Partial Pressure O2 82.7 mm[Hg] 80.0-100.0 [facility] Arterial Blood pH 7.40 7.35-7.45 [facility] Blood Gas Critical Value See comment [facility] Comment on above: Critical Value sargent d on: 11/21/2021 at 06:17 Blood Gas Sample Site Left radial [facility] FiO2 21 % [facility] Estimated GFR () 28 mL/Min [facility] Comment on above: GFR estimated refere nce range: According to KDOQI guidelines, <60 ml/min/1.73m2 is sufficient to diagnose a patient with chronic kidney disease. Pharmacy Creatinine Clearance (Chem 22.98 [facility] Bedside Glucose Comment Glu2: cleaned meter [facility] Phencyclidine Screen Ql (U)O rdered By: Rafiq Bahena on 11-21-2021 Phencyclidine Ql (U) Negative Negative [facility] Platelet mean volume Auto (B ld) [Entitic vol]Ordered By: Rafiq Bahena on 11-21-2021 Platelet mean volume (Bld) [Entitic vol] 9.6 fL 6.3-10.7 [facility] Platelets Auto (Bld) [#/Vol] Ordered By: Rafiq Bahena on 11-21-2021 Platelets (Bld) [#/Vol] 140 10*3/uL 150-450 [facility] Protein Auto test strip (U) [Mass/Vol]Ordered By: Rafiq Bahena on 11-21-2021 Protein (U) [Mass/Vol] Negative Negative [facility] Protein [Mass/volume] in Ser um or PlasmaOrdered By: Rafiq Bahena on 11-21-2021 Protein [Mass/Vol] 5.5 g/dL 6.1-7.9 [facility] RBC Auto (Bld) [#/Vol]Ordere d By: Rafiq Bahena on 11-21-2021 RBC (Bld) [#/Vol] 4.31 10*6/uL 3.60-5.00 [facility] Serum or plasma alanine zapata otransferase measurement without P-5'-P (enzymatic activiOrdered By: Rafiq Bahena on 11-21-2021 ALT No additional P-5'-P [Catalytic activity/Vol] 17 U/L 10-60 [facility] Serum or plasma albumin/glob ulin mass ratioOrdered By: Rafiq Bahena on 11-21-2021 Albumin/Globulin [Mass ratio] 1.6 {ratio} [facility] Serum or plasma alkaline brandy sphatase measurement (enzymatic activity/volume)Ordered By: Rafiq Bahena on 11-21-2021 ALP [Catalytic activity/Vol] 74 U/L 32-92 [facility] Serum or plasma anion gap de terminationOrdered By: Rafiq Bahena on 11-21-2021 Anion gap [Moles/Vol] 14.6 mmol/L 6.0-15.0 Fi [facility] Serum or plasma aspartate am inotransferase measurement (enzymatic activity/volume)Ordered By: Rafiq Bahena on 11-21-2021 AST [Catalytic activity/Vol] 19 U/L 10-42 [facility] Serum or plasma calcium lay urement (mass/volume)Ordered By: Rafiq Bahena on 11-21-2021 Calcium [Mass/Vol] 9.1 mg/dL 8.2-10.2 [facility] Serum or plasma chloride rosaline surement (moles/volume)Ordered By: Rafiq Bahena on 11-21-2021 Chloride [Moles/Vol] 107 mmol/L 95-114 [facility] Serum or plasma ethanol lay urement (mass/volume)Ordered By: Rafiq Bahena on 11-21-2021 Ethanol [Mass/Vol] mg/dL [facility] Ethanol [Mass/Vol] TNP [facility] Comment on above: Test not performed Serum or plasma glucose lay urement (mass/volume)Ordered By: Rafiq Bahena on 11-21-2021 Glucose [Mass/Vol] 124 mg/dL 70-100 [facility] Comment on above: ADA recommended refe rence rangeRandom Glucose Reference Range is dependent on time and content of last meal. Glucose of more than 200 mg/dL in a nonstressed, ambulatory subject supports the diagnosis of Diabetes Mellitus. Serum or plasma potassium me asurement (moles/volume)Ordered By: Rafiq Bahena on 11-21-2021 Potassium [Moles/Vol] 3.1 mmol/L 3.5-5.1 [facility] Serum or plasma sodium measu rement (moles/volume)Ordered By: Rafiq Bahena on 11-21-2021 Sodium [Moles/Vol] 142 mmol/L 136-146 [facility] Serum or plasma total biliru bin measurement (mass/volume)Ordered By: Rafiq Bahena on 11-21-2021 Bilirubin [Mass/Vol] 0.3 mg/dL 0.3-1.2 [facility] Serum or plasma total carbon dioxide measurement (moles/volume)Ordered By: Rafiq Bahena on 11-21-2021 CO2 [Moles/Vol] 23.5 mmol/L 22.0-30.0 [facility] Serum or plasma urea nitroge n measurement (mass/volume)Ordered By: Rafiq Bahena on 11-21-2021 Urea nitrogen [Mass/Vol] 49 mg/dL 9-23 [facility] Specific gravity Auto test s trip (U) [Rel density]Ordered By: Rafiq Bahena on 11-21-2021 Specific gravity (U) [Rel density] 1.010 1.001-1.030 [facility] Squamous epithelial cells de tection in urine sediment by light microscopyOrdered By: Rafiq Bahena on 11-21-2021 Epithelial cells.squamous LM Ql (Urine sed) 1-2 [HPF] 0-2 [facility] TSH DL <= 0.005 mIU/L QnOrde red By: Rafiq Bahena on 11-21-2021 TSH Qn 2.40 m[IU]/L 0.45-5.33 [facility] Thyroxine (T4) free [Mass/vo lume] in Serum or PlasmaOrdered By: Rafiq Bahena on 11-21-2021 Free T4 [Mass/Vol] 0.68 ng/dL 0.61-1.12 [facility] Troponin I.cardiac [Mass/vol ume] in Serum or Plasma by High sensitivity methodOrdered By: Rafiq Bahena on 11-21-2021 Troponin I.cardiac High sensitivity method [Mass/Vol] 6 pg/mL 0-15 [facility] Urine bacteria detection by automated methodOrdered By: Rafiq Bahena on 11-21-2021 Bacteria Auto Ql (U) 2+ None Seen [facility] Urine clarity by refractomet ry automatedOrdered By: Rafiq Bahena on 11-21-2021 Clarity Refractometry automated (U) Clear Clear [facility] Urine cocaine detectionOrder ed By: Rafiq Bahena on 11-21-2021 Cocaine Ql (U) Negative Negative [facility] Urine glucose measurement by automated test strip (mass/volume)Ordered By: Rafiq Bahena on 11-21-2021 Glucose Auto test strip (U) [Mass/Vol] Normal mg/dL Normal [facility] Urine hemoglobin detection b y automated test stripOrdered By: Rafiq Bahena on 11-21-2021 Hemoglobin Auto test strip Ql (U) Negative Negative [facility] Urine leukocyte esterase det ection by automated test stripOrdered By: Rafiq Bahena on 11-21-2021 Leukocyte esterase Auto test strip Ql (U) 1+ Negative [facility] Urobilinogen Auto test strip (U) [Mass/Vol]Ordered By: Rafiq Bahena on 11-21-2021 Urobilinogen (U) [Mass/Vol] Normal mg/dL Normal [facility] pH Auto test strip (U)Ordere d By: Rafiq Bahena on 11-21-2021 pH (U) 5.5 [pH] 5.0-9.0 [facility] CBC AUTO DIFFon 10-24-2021 BASO # 0.1 103/ul Normal 0.0-0.1 [facility] Comment on above: Performed By: #### C BC #### [facility] [address] [place] [address] Dr. Grzegorz Wang Basophils/100 WBC (Bld) 0.6 % Normal 0.2-2.[address] [facility] Comment on above: Performed By: #### C BC #### [facility] [address] [place] [address] Dr. Grzegorz Wang EO # 0.4 103/ul Normal 0.0-0.7 [facility] Comment on above: Performed By: #### C BC #### [facility] [address] [place] [address] Dr. Grzegorz Wang Eosinophils/100 WBC (Bld) 5.0 % Normal 0.9-7.0 [facility] Comment on above: Performed By: #### C BC #### [facility] [address] [place] [address] Dr. Grzegorz Wang Erythrocyte distribution width (RBC) [Ratio] 18.6 % Critically high 11.0-15.0 [facility] Comment on above: Performed By: #### C BC #### [facility] [address] [place] [address] Dr. Grzegorz Wang Hematocrit (Bld) [Volume fraction] 35.7 % Critically low 36.0-48.0 [facility] Comment on above: Performed By: #### C BC #### [facility] [address] [place] [address] Dr. Grzegorz Wang Hemoglobin (Bld) [Mass/Vol] 11.2 g/dL Critically low 12.0-16.0 [facility] Comment on above: Performed By: #### C BC #### [facility] [address] [place] [address] Dr. Grzegorz Wang IG # 0.04 10e3/ul Critically high 0.00-0.03 [facility] Comment on above: Performed By: #### C BC #### [facility] [address] [place] [address] Dr. Grzegorz Wang IG % 0.5 % Normal 0.0-0.5 [facility] Comment on above: Performed By: #### C BC #### [facility] [address] [place] [address] Dr. Grzegorz Wang LYMPH # 1.9 103/ul Normal 1.2-3.8 [facility] Comment on above: Performed By: #### C BC #### [facility] [address] [place] [address] Dr. Grzegorz Wang Lymphocytes/100 WBC (Bld) 22.2 % Normal 20.5-60.0 [facility] Comment on above: Performed By: #### C BC #### [facility] [address] [place] [address] Dr. Grzegorz Wang MANUAL DIFF REQ NO Normal [facility] Comment on above: Performed By: #### C BC #### [facility] [address] [place] [address] Dr. Grzegorz Wang MCH (RBC) [Entitic mass] 26.4 pg Critically low 26.7-34.0 [facility] Comment on above: Performed By: #### C BC #### [facility] [address] [place] [address] Dr. Grzegorz aWng MCHC (RBC) [Mass/Vol] 31.4 g/dL Normal 29.9-35.2 [facility] Comment on above: Performed By: #### C BC #### [facility] [address] [place] [address] Dr. Grzegorz Wang MCV (RBC) [Entitic vol] 84.2 fL Normal 81.0-99.[address] [facility] Comment on above: Performed By: #### C BC #### [facility] [address] [place] [address] Dr. Grzegorz Wang MONO # 0.8 103/ul Normal 0.3-0.8 [facility] Comment on above: Performed By: #### C BC #### [facility] [address] [place] [address] Dr. Grzegorz Wang Monocytes/100 WBC (Bld) 10.0 % Normal 1.7-12.[address] [facility] Comment on above: Performed By: #### C BC #### [facility] [address] [place] [address] Dr. Grzegorz Wang NEUT # 5.2 103/ul Normal 1.4-6.5 [facility] Comment on above: Performed By: #### C BC #### [facility] [address] [place] [address] Dr. Grzegorz Wang Neutrophils/100 WBC (Bld) 61.7 % Normal 43.0-75.0 [facility] Comment on above: Performed By: #### C BC #### [facility] [address] [place] [address] Dr. Grzegorz Wang Platelet mean volume (Bld) [Entitic vol] 11.8 fL Normal 9.5-13.5 [facility] Comment on above: Performed By: #### C BC #### [facility] [address] [place] [address] Dr. Grzegorz Wang PLT 219 103/ul Normal 150-450 [facility] [facility] Comment on above: Performed By: #### C BC #### [facility] [address] [place] [address] Dr. Grzegorz Wang RBC 4.24 106/ul Normal 4.20-5.40 [facility] Comment on above: Performed By: #### C BC #### [facility] [address] [place] [address] Dr. Grzegorz Wang WBC 8.4 103/ul Normal 4.0-11.0 [facility] Comment on above: Performed By: #### C BC #### [facility] [address] [place] [address] Dr. Grzegorz Wang PRBC LEUKOREDUCEDon 10-23-19 ABO and Rh group Nom (Bld) Cross Match Result Compatible Unit Blood Type O Pos Unit Number [id number] Status Information Transfused Product ID Red Blood Cells Product Code [id number] Cross Match Result Compatible Blood Bank Notes CALLED SARATH GLYNN RN ON [facility] 10/17/21 @ 0850 Unit Blood Type O Neg Unit Number [id number] Status Information Transfused Product ID Red Blood Cells Product Code [id number] [facility] Comment on above: Performed By: #### C BC #### [facility] [address] [place] [address] Dr. Grzegorz Wang ABO and Rh group Nom (Bld) Cross Match Result Compatible Unit Blood Type O Neg Unit Number [id number] Status Information Transfused Product ID Red Blood Cells Product Code [id number] Cross Match Result Compatible Unit Blood Type O Neg Unit Number [id number] Status Information Transfused Product ID Red Blood Cells Product Code [id number] [facility] Comment on above: Performed By: #### C BC #### [facility] [address] [place] [address] Dr. Grzegorz Wang CBC AUTO DIFFon 10-18-2021 BASO # 0.0 103/ul Normal 0.0-0.1 [facility] Comment on above: Performed By: #### C BC #### [facility] [address] [address] [address] Grzegorz Wang Basophils/100 WBC (Bld) 0.7 % Normal 0.2-2.[address] [facility] Comment on above: Performed By: #### C BC #### [facility] [address] [address] [address] Grzegorz Wang EO # 0.2 103/ul Normal 0.0-0.7 [facility] Comment on above: Performed By: #### C BC #### [facility] [address] [place] [address] Dr. Grzegorz Wang Eosinophils/100 WBC (Bld) 2.9 % Normal 0.9-7.0 [facility] Comment on above: Performed By: #### C BC #### [facility] [address] [place] [address] Dr. Grzegorz Wang Erythrocyte distribution width (RBC) [Ratio] 17.8 % Critically high 11.0-15.0 [facility] Comment on above: Performed By: #### C BC #### [facility] [address] [place] [address] Dr. Grzegorz Wang Hematocrit (Bld) [Volume fraction] 30.1 % Critically low 36.0-48.0 [facility] Comment on above: Performed By: #### C BC #### [facility] [address] [place] [address] Dr. Grzegorz Wang Hemoglobin (Bld) [Mass/Vol] 9.6 g/dL Critically low 12.0-16.0 [facility] Comment on above: Performed By: #### C BC #### [facility] [address] [place] [address] Dr. Grzegorz Wang IG # 0.08 10e3/ul Critically high 0.00-0.03 [facility] Comment on above: Performed By: #### C BC #### [facility] [address] [place] [address] Dr. Grzegorz Wang IG % 1.3 % Critically high 0.0-0.5 [facility] Comment on above: Performed By: #### C BC #### [facility] [address] [place] [address] Dr. Grzegorz Wang LYMPH # 1.8 103/ul Normal 1.2-3.8 [facility] Comment on above: Performed By: #### C BC #### [facility] [address] [place] [address] Dr. Grzegorz Wang Lymphocytes/100 WBC (Bld) 29.4 % Normal 20.5-60.0 [facility] Comment on above: Performed By: #### C BC #### [facility] [address] [place] [address] Dr. Grzegorz Wang MANUAL DIFF REQ NO Normal [facility] Comment on above: Performed By: #### C BC #### [facility] [address] [place] [address] Dr. Grzegorz Wang MCH (RBC) [Entitic mass] 25.9 pg Critically low 26.7-34.0 [facility] Comment on above: Performed By: #### C BC #### [facility] [address] [place] [address] Dr. Grzegorz Wang MCHC (RBC) [Mass/Vol] 31.9 g/dL Normal 29.9-35.2 [facility] Comment on above: Performed By: #### C BC #### [facility] [address] [place] [address] Dr. Grzegorz Wang MCV (RBC) [Entitic vol] 81.4 fL Normal 81.0-99.[address] [facility] Comment on above: Performed By: #### C BC #### [facility] [address] [place] [address] Dr. Grzegorz Wang MONO # 0.7 103/ul Normal 0.3-0.8 [facility] Comment on above: Performed By: #### C BC #### [facility] [address] [place] [address] Dr. Grzegorz Wang Monocytes/100 WBC (Bld) 11.9 % Normal 1.7-12.[address] [facility] Comment on above: Performed By: #### C BC #### [facility] [address] [place] [address] Dr. Grzegorz Wang NEUT # 3.3 103/ul Normal 1.4-6.5 [facility] Comment on above: Performed By: #### C BC #### [facility] [address] [place] [address] Dr. Grzegorz Wang Neutrophils/100 WBC (Bld) 53.8 % Normal 43.0-75.0 [facility] Comment on above: Performed By: #### C BC #### [facility] [address] [place] [address] Dr. Grzegorz Wang Platelet mean volume (Bld) [Entitic vol] 10.5 fL Normal 9.5-13.5 [facility] Comment on above: Performed By: #### C BC #### [facility] [address] [place] [address] Dr. Grzegorz Wang PLT 206 103/ul Normal 150-450 [facility] Comment on above: Performed By: #### C BC #### [facility] [address] [place] [address] Dr. Grzegorz Wang RBC 3.70 106/ul Critically low 4.20-5.40 [facility] Comment on above: Performed By: #### C BC #### [facility] [address] [place] [address] Dr. Grzegorz Wang WBC 6.1 103/ul Normal 4.0-11.0 [facility] Comment on above: Performed By: #### C BC #### [facility] [address] [place] [address] Dr. Grzegorz Wang PROF CHEM 8 (BAS METB)on Anion gap [Moles/Vol] 9.6 mmol/L Normal [facility] Comment on above: Performed By: #### C BC #### [facility] [address] [place] [address] Dr. Grzegorz Wang Calcium [Mass/Vol] 8.5 mg/dL Normal 8.5-10.1 [facility] Comment on above: Performed By: #### C BC #### [facility] [address] [address] [address] Grzegorz Wang Chloride [Moles/Vol] 113 mmol/L Critically high 98-107 [facility] Comment on above: Performed By: #### C BC #### [facility] [address] [address] [address] Grzegorz Wang CO2 [Moles/Vol] 26.6 mmol/L Normal 21.0-32.0 [facility] Comment on above: Performed By: #### C BC #### [facility] [address] [place] [address] Dr. Grzegorz Wang Creatinine [Mass/Vol] 0.94 mg/dL Normal 0.55-1.02 [facility] Comment on above: Performed By: #### C BC #### [facility] [address] [address] [address] Grzegorz Wang EGFR-AF BELARUSIAN >60 Normal >=60 [facility] Comment on above: Performed By: #### C BC #### [facility] [address] [address] [address] Grzegorz Wang EGFR-NON AF BELARUSIAN 58 mL/min/1.73m2 Critically low >=60 [facility] Comment on above: Performed By: #### C BC #### [facility] [address] [address] [address] Grzegorz Wang Glucose [Mass/Vol] 97 mg/dL Normal 74-106 [facility] Comment on above: Performed By: #### C BC #### [facility] [address] [address] [address] Grzegorz Wang Potassium [Moles/Vol] 3.2 mmol/L Critically low 3.5-5.1 [facility] Comment on above: Performed By: #### C BC #### [facility] [address] [address] [address] Grzegorz Wang Sodium [Moles/Vol] 146 mmol/L Critically high 136-[address] [facility] Comment on above: Performed By: #### C BC #### [facility] [address] [place] [address] Dr. Grzegorz Wang Urea nitrogen [Mass/Vol] 38.0 mg/dL Critically high 7.0-18.0 [facility] Comment on above: Performed By: #### C BC #### [facility] [address] [place] [address] Dr. Grzegorz Wang Urea nitrogen/Creatinine [Mass ratio] 40.4 mg/mg Normal [facility] Comment on above: Performed By: #### C BC #### [facility] [address] [place] [address] Dr. Grzegorz Wang CBC AUTO DIFFon 10-17-2021 BASO # 0.1 103/ul Normal 0.0-0.1 [facility] Comment on above: Performed By: #### C BC #### [facility] [address] [place] [address] Dr. Grzegorz Wang Basophils/100 WBC (Bld) 0.9 % Normal 0.2-2.[address] [facility] Comment on above: Performed By: #### C BC #### [facility] [address] [place] [address] Dr. Grzegorz Wang EO # 0.2 103/ul Normal 0.0-0.7 [facility] Comment on above: Performed By: #### C BC #### [facility] [address] [place] [address] Dr. Grzegorz Wang Eosinophils/100 WBC (Bld) 3.1 % Normal 0.9-7.0 [facility] Comment on above: Performed By: #### C BC #### [facility] [address] [place] [address] Dr. Grzegorz Wang Erythrocyte distribution width (RBC) [Ratio] 17.6 % Critically high 11.0-15.0 [facility] Comment on above: Performed By: #### C BC #### [facility] [address] [place] [address] Dr. Grzegorz Wang Hematocrit (Bld) [Volume fraction] 35.7 % Critically low 36.0-48.0 [facility] Comment on above: Performed By: #### C BC #### [facility] [address] [place] [address] Dr. Grzegorz Wang Hemoglobin (Bld) [Mass/Vol] 11.5 g/dL Critically low 12.0-16.0 [facility] Comment on above: Result Comment: rcvd . blood Performed By: #### C BC #### [facility] [address] [place] [address] Dr. Grzegorz Wang IG # 0.18 10e3/ul Critically high 0.00-0.03 [facility] Comment on above: Performed By: #### C BC #### [facility] [address] [place] [address] Dr. Grzegorz Wang IG % 2.6 % Critically high 0.0-0.5 [facility] Comment on above: Performed By: #### C BC #### [facility] [address] [place] [address] Dr. Grzegorz Wang LYMPH # 1.5 103/ul Normal 1.2-3.8 [facility] Comment on above: Performed By: #### C BC #### [facility] [address] [place] [address] Dr. Grzegorz Wang Lymphocytes/100 WBC (Bld) 21.4 % Normal 20.5-60.0 [facility] Comment on above: Performed By: #### C BC #### [facility] [address] [place] [address] Dr. Grzegorz Wang MANUAL DIFF REQ NO Normal [facility] Comment on above: Performed By: #### C BC #### [facility] [address] [place] [address] Dr. Grzegorz Wang MCH (RBC) [Entitic mass] 26.0 pg Critically low 26.7-34.0 [facility] Comment on above: Performed By: #### C BC #### [facility] [address] [place] [address] Dr. Grzegorz Wang MCHC (RBC) [Mass/Vol] 32.2 g/dL Normal 29.9-35.2 [facility] Comment on above: Performed By: #### C BC #### [facility] [address] [place] [address] Dr. Grzegorz Wang MCV (RBC) [Entitic vol] 80.6 fL Critically low 81.0-99. 0 [facility] Comment on above: Performed By: #### C BC #### [facility] [address] [place] [address] Dr. Grzegorz Wang MONO # 0.7 103/ul Normal 0.3-0.8 [facility] Comment on above: Performed By: #### C BC #### [facility] [address] [place] [address] Dr. Grzegorz Wang Monocytes/100 WBC (Bld) 10.8 % Normal 1.7-12.[address] [facility] Comment on above: Performed By: #### C BC #### [facility] [address] [place] [address] Dr. Grzegorz Wang NEUT # 4.2 103/ul Normal 1.4-6.5 [facility] Comment on above: Performed By: #### C BC #### [facility] [address] [place] [address] Dr. Grzegorz Wang Neutrophils/100 WBC (Bld) 61.2 % Normal 43.0-75.0 [facility] Comment on above: Performed By: #### C BC #### [facility] [address] [place] [address] Dr. Grzegorz Wang Platelet mean volume (Bld) [Entitic vol] 9.9 fL Normal 9.5-13.5 [facility] Comment on above: Performed By: #### C BC #### [facility] [address] [place] [address] Dr. Grzegorz Wang PLT 228 103/ul Normal 150-450 [facility] Comment on above: Performed By: #### C BC #### [facility] [address] [place] [address] Dr. Grzegorz Wang RBC 4.43 106/ul Normal 4.20-5.40 [facility] Comment on above: Performed By: #### C BC #### [facility] [address] [address] [address] Grzegorz Wang WBC 6.9 103/ul Normal 4.0-11.0 [facility] Comment on above: Performed By: #### C BC #### [facility] [address] [address] [address] Grzegorz Wang BASO # 0.0 103/ul Normal 0.0-0.1 [facility] Comment on above: Performed By: #### C BC #### [facility] [address] [address] [address] Grzegorz Wang Basophils/100 WBC (Bld) 0.8 % Normal 0.2-2.[address] [facility] Comment on above: Performed By: #### C BC #### [facility] [address] [place] [address] Dr. Grzegorz Wang EO # 0.1 103/ul Normal 0.0-0.7 [facility] Comment on above: Performed By: #### C BC #### [facility] [address] [place] [address] Dr. Grzegorz Wang Eosinophils/100 WBC (Bld) 2.4 % Normal 0.9-7.0 [facility] Comment on above: Performed By: #### C BC #### [facility] [address] [place] [address] Dr. Grzegorz Wang Erythrocyte distribution width (RBC) [Ratio] 16.8 % Critically high 11.0-15.0 [facility] Comment on above: Performed By: #### C BC #### [facility] [address] [place] [address] Dr. Grzegorz Wang Hematocrit (Bld) [Volume fraction] 23.2 % Critically low 36.0-48.0 [facility] Comment on above: Performed By: #### C BC #### [facility] [address] [place] [address] Dr. Grzegorz Wang Hemoglobin (Bld) [Mass/Vol] 7.4 g/dL Critically low 12.0-16.0 [facility] Comment on above: Performed By: #### C BC #### [facility] [address] [address] [address] Grzegorz Wang IG # 0.05 10e3/ul Critically high 0.00-0.03 [facility] Comment on above: Performed By: #### C BC #### [facility] [address] [address] [address] Grzegorz Wang IG % 1.0 % Critically high 0.0-0.5 [facility] Comment on above: Performed By: #### C BC #### [facility] [address] [address] [address] Grzegorz Wang LYMPH # 1.4 103/ul Normal 1.2-3.8 [facility] Comment on above: Performed By: #### C BC #### [facility] [address] [place] [address] Dr. Grzegorz Wang Lymphocytes/100 WBC (Bld) 27.8 % Normal 20.5-60.0 [facility] Comment on above: Performed By: #### C BC #### [facility] [address] [address] [address] Grzegorz Wang MANUAL DIFF REQ NO Normal [facility] Comment on above: Performed By: #### C BC #### [facility] [address] [place] [address] Dr. Grzegorz Wang MCH (RBC) [Entitic mass] 25.6 pg Critically low 26.7-34.0 [facility] Comment on above: Performed By: #### C BC #### [facility] [address] [place] [address] Dr. Grzegorz Wang MCHC (RBC) [Mass/Vol] 31.9 g/dL Normal 29.9-35.2 [facility] Comment on above: Performed By: #### C BC #### [facility] [address] [place] [address] Dr. Grzegorz Wang MCV (RBC) [Entitic vol] 80.3 fL Critically low 81.0-99. 0 [facility] Comment on above: Performed By: #### C BC #### [facility] [address] [address] [address] Grzegorz Wang MONO # 0.6 103/ul Normal 0.3-0.8 [facility] Comment on above: Performed By: #### C BC #### [facility] [address] [address] [address] Grzegorz Wang Monocytes/100 WBC (Bld) 11.6 % Normal 1.7-12.[address] [facility] Comment on above: Performed By: #### C BC #### [facility] [address] [place] [address] Dr. Grzegorz Wang NEUT # 2.8 103/ul Normal 1.4-6.5 [facility] Comment on above: Performed By: #### C BC #### [facility] [address] [place] [address] Dr. Grzegorz Wang Neutrophils/100 WBC (Bld) 56.4 % Normal 43.0-75.0 [facility] Comment on above: Performed By: #### C BC #### [facility] [address] [place] [address] Dr. Grzegorz Wang Platelet mean volume (Bld) [Entitic vol] 10.0 fL Normal 9.5-13.5 [facility] Comment on above: Performed By: #### C BC #### [facility] [address] [place] [address] Dr. Grzegorz Wang PLT 193 103/ul Normal 150-450 [facility] Comment on above: Performed By: #### C BC #### [facility] [address] [place] [address] Dr. Grzegorz Wang RBC 2.89 106/ul Critically low 4.20-5.40 [facility] Comment on above: Performed By: #### C BC #### [facility] [address] [place] [address] Dr. Grzegorz Wang WBC 4.9 103/ul Normal 4.0-11.0 [facility] Comment on above: Performed By: #### C BC #### [facility] [address] [address] [address] Grzegorz Wang PROF CHEM 8 (BAS METB)on Anion gap [Moles/Vol] 11.4 mmol/L Normal [facility] Comment on above: Performed By: #### A MY, LIPA #### [facility] [address] [place] [address] Dr. Grzegorz Wang Calcium [Mass/Vol] 8.3 mg/dL Critically low 8.5-10.1 [facility] Comment on above: Performed By: #### A MY, LIPA #### [facility] [address] [place] [address] Dr. Grzegorz Wang Chloride [Moles/Vol] 116 mmol/L Critically high 98-107 [facility] Comment on above: Performed By: #### A MY, LIPA #### [facility] [address] [place] [address] Dr. Grzegorz Wang CO2 [Moles/Vol] 21.1 mmol/L Normal 21.0-32.0 [facility] Comment on above: Performed By: #### A MY, LIPA #### [facility] [address] [place] [address] Dr. Grzegorz Wang Creatinine [Mass/Vol] 1.07 mg/dL Critically high 0.55-1.02 [facility] Comment on above: Performed By: #### A MY, LIPA #### [facility] [address] [place] [address] Dr. Grzegorz Wang EGFR-AF BELARUSIAN >60 Normal >=60 [facility] Comment on above: Performed By: #### A MY, LIPA #### [facility] [address] [place] [address] Dr. Grzegorz Wang EGFR-NON AF BELARUSIAN 50 mL/min/1.73m2 Critically low >=60 [facility] Comment on above: Performed By: #### A MY, LIPA #### [facility] [address] [place] [address] Dr. Grzegorz Wang Glucose [Mass/Vol] 90 mg/dL Normal 74-106 [facility] Comment on above: Performed By: #### A MY, LIPA #### [facility] [address] [place] [address] Dr. Grzegorz Wang Potassium [Moles/Vol] 3.5 mmol/L Normal 3.5-5.1 [facility] Comment on above: Performed By: #### A MY, LIPA #### [facility] [address] [place] [address] Dr. Grzegorz Wang Sodium [Moles/Vol] 145 mmol/L Normal 136-145 [facility] Comment on above: Performed By: #### A BRAYDEN LIPA #### [facility] [address] [place] [address] Dr. Grzegorz Wang Urea nitrogen [Mass/Vol] 59.0 mg/dL Critically high 7.0-18.0 [facility] Comment on above: Performed By: #### A BRAYDEN LIPA #### [facility] [address] [place] [address] Dr. Grzegorz Wang Urea nitrogen/Creatinine [Mass ratio] 55.1 mg/mg Normal [facility] Comment on above: Performed By: #### A BRAYDEN LIPA #### [facility] [address] [place] [address] Dr. Grzegroz Wang AMYLASEon 10-16-2021 Amylase [Catalytic activity/Vol] 41 U/L Normal 25-115 [facility] Comment on above: Performed By: #### A BRAYDEN LIPA #### [facility] [address] [place] [address] Dr. Grzegorz Wang CBC AUTO DIFFon 10-16-2021 BASO # 0.1 103/ul Normal 0.0-0.1 [facility] Comment on above: Performed By: #### A BRAYDEN LIPA #### [facility] [address] [place] [address] Dr. Grzegorz Wang Basophils/100 WBC (Bld) 0.7 % Normal 0.2-2.[address] [facility] Comment on above: Performed By: #### A BRAYDEN LIPA #### [facility] [address] [place] [address] Dr. Grzegorz Wang EO # 0.2 103/ul Normal 0.0-0.7 [facility] Comment on above: Performed By: #### A BRAYDEN LIPA #### [facility] [address] [place] [address] Dr. Grzegorz Wang Eosinophils/100 WBC (Bld) 2.4 % Normal 0.9-7.0 [facility] Comment on above: Performed By: #### A BRAYDEN LIPA #### [facility] [address] [place] [address] Dr. Grzegorz Wang Erythrocyte distribution width (RBC) [Ratio] 17.1 % Critically high 11.0-15.0 [facility] Comment on above: Performed By: #### A BRAYDEN LIPA #### [facility] [address] [place] [address] Dr. Grzegorz Wang Hematocrit (Bld) [Volume fraction] 26.0 % Critically low 36.0-48.0 [facility] Comment on above: Performed By: #### A BRAYDEN LIPA #### [facility] [address] [place] [address] Dr. Grzegorz Wang Hemoglobin (Bld) [Mass/Vol] 8.4 g/dL Critically low 12.0-16.0 [facility] Comment on above: Performed By: #### A BRAYDEN LIPA #### [facility] [address] [place] [address] Dr. Grzegorz Wang IG # 0.03 10e3/ul Normal 0.00-0.03 [facility] Comment on above: Performed By: #### A BRAYDEN LIPA #### [facility] [address] [place] [address] Dr. Grzegorz Wang IG % 0.4 % Normal 0.0-0.5 [facility] Comment on above: Performed By: #### A BRAYDEN LIPA #### [facility] [address] [place] [address] Dr. Grzegorz Wang LYMPH # 1.9 103/ul Normal 1.2-3.8 [facility] Comment on above: Performed By: #### A BRAYDEN LIPA #### [facility] [address] [address] [address] Grzegorz Wang Lymphocytes/100 WBC (Bld) 27.3 % Normal 20.5-60.0 [facility] Comment on above: Performed By: #### A MY, LIPA #### [facility] [address] [place] [address] Dr. Grzegorz Wang MANUAL DIFF REQ NO Normal [facility] Comment on above: Performed By: #### A MY, LIPA #### [facility] [address] [place] [address] Dr. Grzegorz Wang MCH (RBC) [Entitic mass] 26.0 pg Critically low 26.7-34.0 [facility] Comment on above: Performed By: #### A BRAYDEN, LIPA #### [facility] [address] [place] [address] Dr. Grzegorz Wang MCHC (RBC) [Mass/Vol] 32.3 g/dL Normal 29.9-35.2 [facility] Comment on above: Performed By: #### A BRAYDEN, LIPA #### [facility] [address] [place] [address] Dr. Grzegorz Wang MCV (RBC) [Entitic vol] 80.5 fL Critically low 81.0-99. 0 [facility] Comment on above: Performed By: #### A BRAYDEN, LIPA #### [facility] [address] [place] [address] Dr. Grzegorz Wang MONO # 0.7 103/ul Normal 0.3-0.8 [facility] Comment on above: Performed By: #### A BRAYDEN, LIPA #### [facility] [address] [place] [address] Dr. Grzegorz Wang Monocytes/100 WBC (Bld) 10.5 % Normal 1.7-12.[address] [facility] Comment on above: Performed By: #### A BRAYDEN, LIPA #### [facility] [address] [place] [address] Dr. Grzegorz aWng NEUT # 4.1 103/ul Normal 1.4-6.5 [facility] Comment on above: Performed By: #### A MY, LIPA #### [facility] [address] [address] [address] Grzegorz Wang Neutrophils/100 WBC (Bld) 58.7 % Normal 43.0-75.0 [facility] Comment on above: Performed By: #### A MY, LIPA #### [facility] [address] [place] [address] Dr. Grzegorz Wang Platelet mean volume (Bld) [Entitic vol] 10.4 fL Normal 9.5-13.5 [facility] Comment on above: Performed By: #### A BRAYDEN LIPA #### [facility] [address] [place] [address] Dr. Grzegorz Wang PLT 217 103/ul Normal 150-450 [facility] Comment on above: Performed By: #### A BRAYDEN LIPA #### [facility] [address] [place] [address] Dr. Grzegorz Wang RBC 3.23 106/ul Critically low 4.20-5.40 [facility] Comment on above: Performed By: #### A BRAYDEN LIPA #### [facility] [address] [place] [address] Dr. Grzegorz Wang WBC 7.1 103/ul Normal 4.0-11.0 [facility] Comment on above: Performed By: #### A BRAYDEN LIPA #### [facility] [address] [place] [address] Dr. Grzegorz Wang BASO # 0.0 103/ul Normal 0.0-0.1 [facility] Comment on above: Performed By: #### C BC #### [facility] [address] [place] [address] Dr. Grzegorz Wang Basophils/100 WBC (Bld) 0.5 % Normal 0.2-2.[address] [facility] Comment on above: Performed By: #### C BC #### [facility] [address] [place] [address] Dr. Grzegorz Wang EO # 0.1 103/ul Normal 0.0-0.7 [facility] Comment on above: Performed By: #### C BC #### [facility] [address] [address] [address] Grzegorz Wang Eosinophils/100 WBC (Bld) 0.8 % Critically low 0.9-7.0 [facility] Comment on above: Performed By: #### C BC #### [facility] [address] [address] [address] Grzegorz Wang Erythrocyte distribution width (RBC) [Ratio] 16.8 % Critically high 11.0-15.0 [facility] Comment on above: Performed By: #### C BC #### [facility] [address] [place] [address] Dr. Grzegorz Wang Hematocrit (Bld) [Volume fraction] 19.5 % Critically low 36.0-48.0 [facility] Comment on above: Performed By: #### C BC #### [facility] [address] [place] [address] Dr. Grzegorz Wang Hemoglobin (Bld) [Mass/Vol] 6.0 g/dL Critically low 12.0-16.0 [facility] Comment on above: Result Comment: repe ated Performed By: #### C BC #### [facility] [address] [place] [address] Dr. Grzegorz Wang IG # 0.05 10e3/ul Critically high 0.00-0.03 [facility] Comment on above: Performed By: #### C BC #### [facility] [address] [place] [address] Dr. Grzegorz Wang IG % 0.6 % Critically high 0.0-0.5 [facility] Comment on above: Performed By: #### C BC #### [facility] [address] [place] [address] Dr. Grzegorz Wang LYMPH # 1.8 103/ul Normal 1.2-3.8 [facility] Comment on above: Performed By: #### C BC #### [facility] [address] [place] [address] Dr. Grzegorz Wang Lymphocytes/100 WBC (Bld) 21.6 % Normal 20.5-60.0 [facility] Comment on above: Performed By: #### C BC #### [facility] [address] [place] [address] Dr. Grzegorz Wang MANUAL DIFF REQ NO Normal [facility] Comment on above: Performed By: #### C BC #### [facility] [address] [place] [address] Dr. Grzegorz Wang MCH (RBC) [Entitic mass] 23.4 pg Critically low 26.7-34.0 [facility] Comment on above: Performed By: #### C BC #### [facility] [address] [place] [address] Dr. Grzegorz Wang MCHC (RBC) [Mass/Vol] 30.6 g/dL Normal 29.9-35.2 [facility] Comment on above: Performed By: #### C BC #### [facility] [address] [place] [address] Dr. Grzegorz Wang MCV (RBC) [Entitic vol] 76.6 fL Critically low 81.0-99. 0 [facility] Comment on above: Performed By: #### C BC #### [facility] [address] [place] [address] Dr. Grzegorz Wang MONO # 0.6 103/ul Normal 0.3-0.8 [facility] Comment on above: Performed By: #### C BC #### [facility] [address] [place] [address] Dr. Grzegorz Wang Monocytes/100 WBC (Bld) 7.3 % Normal 1.7-12.[address] [facility] Comment on above: Performed By: #### C BC #### [facility] [address] [place] [address] Dr. Grzegorz Wang NEUT # 5.9 103/ul Normal 1.4-6.5 [facility] Comment on above: Performed By: #### C BC #### [facility] [address] [place] [address] Dr. Grzegorz Wang Neutrophils/100 WBC (Bld) 69.2 % Normal 43.0-75.0 [facility] Comment on above: Performed By: #### C BC #### [facility] [address] [place], [place] [address] Dr. Grzegorz Wang Platelet mean volume (Bld) [Entitic vol] 10.5 fL Normal 9.5-13.5 [facility] Comment on above: Performed By: #### C BC #### [facility] [address] [address] [address] Grzegorz Wang PLT 288 103/ul Normal 150-450 [facility] Comment on above: Performed By: #### C BC #### [facility] [address] [place], [place] [address] Dr. Grzegorz Wang RBC 2.52 106/ul Critically low 4.20-5.40 [facility] Comment on above: Performed By: #### C BC #### [facility] [address] [place], [place] [address] Dr. Grzegorz Wang WBC 8.5 103/ul Normal 4.0-11.0 [facility] Comment on above: Performed By: #### C BC #### [facility] [address] [place], [place] [address] ABD/PELVIS WO CONon [...] LYNN OLSON Date: 2021-10-16 13:53 Normal [facility] Covid-19 PCR (CVDTB)on SARS-CoV-2 (COVID-19) RNA SIOBHAN+probe Ql (Unsp spec) Not detected Normal NOT DETECTED [facility] Comment on above: Result Comment: When [...] for this test is supported by the [place] of Health and Human Service's declaration that [...] used). Performed By: #### E RUR #### [facility] [address] [place] [address] Dr. Grzegorz Wang ER URINE PROFILEon 2 Bilirubin Ql (U) Negative Normal NEGATIVE [facility] Comment on above: Performed By: #### A BRAYDEN LIPA #### [facility] [address] [place] [address] Dr. Grzegorz Wang Clarity (U) CLEAR Normal CLEAR [facility] Comment on above: Performed By: #### A BRAYDEN LIPA #### [facility] [address] [place] [address] Dr. Grzegorz Wang Color (U) LT. YELLOW Normal YELLOW [facility] Comment on above: Performed By: #### A BRAYDEN, LIPA #### [facility] [address] [place] [address] Dr. Grzegorz Wang ERUAHD A micrscopic examination will be performed if indicated. Normal [facility] Comment on above: Performed By: #### A BRAYDEN LIPA #### [facility] [address] [address] [address] Grzegorz Wang Glucose Ql (U) Negative Normal NEGATIVE [facility] Comment on above: Performed By: #### A MY, LIPA #### [facility] [address] [address] [address] Grzegorz Wang Hemoglobin Ql (U) SMALL Abnormal NEGATIVE [facility] Comment on above: Performed By: #### A MY, LIPA #### [facility] [address] [place] [address] Dr. Grzegorz Wang Ketones Ql (U) Negative Normal NEGATIVE [facility] Comment on above: Performed By: #### A MY, LIPA #### [facility] [address] [place] [address] Dr. Grzegroz Wang LEUKOCYTES TRACE Abnormal NEGATIVE [facility] Comment on above: Performed By: #### A MY, LIPA #### [facility] [address] [place] [address] Dr. Grzegorz Wang Nitrite Ql (U) Negative Normal NEGATIVE [facility] Comment on above: Performed By: #### A MY, LIPA #### [facility] [address] [place] [address] Dr. Grzegorz Wang pH (U) 5.5 [pH] Normal 5-9 [facility] Comment on above: Performed By: #### A MY, LIPA #### [facility] [address] [place] [address] Dr. Grzegorz Wang SPEC GRAVITY 1.005 Normal 1.005-<=1.0 25 [facility] Comment on above: Performed By: #### A MY, LIPA #### [facility] [address] [place] [address] Dr. Grzegorz Wang UA PROTEIN Negative Normal NEGATIVE/ TRACE [facility] Comment on above: Performed By: #### A MY, LIPA #### [facility] [address] [place] [address] Dr. Grzegorz Wang UR MICRO IND INDICATED Normal [facility] Comment on above: Performed By: #### A MY, LIPA #### [facility] [address] [place] [address] Dr. Grzegorz Wang Urobilinogen Qn (U) 0.2 {Lidya'U}/dL Normal 0.2 - 1. 0 [facility] Comment on above: Performed By: #### A MY, LIPA #### [facility] [address] [place] [address] Dr. Grzegorz Wang LIPASEon 10-16-2021 Lipase [Catalytic activity/Vol] 77.0 U/L Normal 73.0-393.0 [facility] Comment on above: Performed By: #### A BRAYDEN LIPA #### [facility] [address] [place] [address] Dr. Grzegorz Wang OCC BLD IMMUNO SCREENon OCCULT BLOOD Positive Abnormal NEGATIVE [facility] Comment on above: Performed By: #### A BRAYDEN LIPA #### [facility] [address] [place] [address] Dr. Grzegorz Wang PROF 14(COMP METB)on 022 Albumin [Mass/Vol] 3.4 g/dL Normal 3.4-5.0 [facility] Comment on above: Performed By: #### C BC #### [facility] [address] [place] [address] Dr. Grzegorz Wang Albumin/Globulin [Mass ratio] 1.2 {ratio} Normal [facility] Comment on above: Performed By: #### C BC #### [facility] [address] [place] [address] Dr. Grzegorz Wang ALP [Catalytic activity/Vol] 77 U/L Normal 46-116 [facility] Comment on above: Performed By: #### C BC #### [facility] [address] [place] [address] Dr. Grzegorz Wang ALT [Catalytic activity/Vol] 18 U/L Normal 14-59 [facility] Comment on above: Performed By: #### C BC #### [facility] [address] [place] [address] Dr. Grzegorz Wang Anion gap [Moles/Vol] 15.3 mmol/L Normal [facility] Comment on above: Performed By: #### C BC #### [facility] [address] [address] [address] Grzegorz Wang AST [Catalytic activity/Vol] 17 U/L Normal 15-37 [facility] Comment on above: Performed By: #### C BC #### [facility] [address] [address] [address] Grzegorz Wang Bilirubin [Mass/Vol] 0.4 mg/dL Normal 0.2-1.0 [facility] Comment on above: Performed By: #### C BC #### [facility] [address] [address] [address] Grzegorz Wang Calcium [Mass/Vol] 8.5 mg/dL Normal 8.5-10.1 [facility] Comment on above: Performed By: #### C BC #### [facility] [address] [address] [address] Grzegorz Wang Chloride [Moles/Vol] 104 mmol/L Normal 98-107 [facility] Comment on above: Performed By: #### C BC #### [facility] [address] [address] [address] Grzegorz Wang CO2 [Moles/Vol] 21.2 mmol/L Normal 21.0-32.0 [facility] Comment on above: Performed By: #### C BC #### [facility] [address] [address] [address] Grzegorz Wang Creatinine [Mass/Vol] 1.68 mg/dL Critically high 0.55-1.02 [facility] Comment on above: Performed By: #### C BC #### [facility] [address] [address] [address] Grzegorz Wang EGFR-AF BELARUSIAN 36 mL/min/1.73m2 Critically low >=60 [facility] Comment on above: Performed By: #### C BC #### [facility] [address] [address] [address] Grzegorz Wang EGFR-NON AF BELARUSIAN 30 mL/min/1.73m2 Critically low >=60 [facility] Comment on above: Performed By: #### C BC #### [facility] [address] [address] [address] Grzegorz Wang Globulin (S) [Mass/Vol] 2.8 g/dL Normal T [facility] Comment on above: Performed By: #### C BC #### [facility] [address] [address] [address] Grzegorz Wang Glucose [Mass/Vol] 101 mg/dL Normal 74-106 [facility] Comment on above: Performed By: #### C BC #### [facility] [address] [address] [address] Grzegorz Wang Potassium [Moles/Vol] 3.5 mmol/L Normal 3.5-5.1 [facility] Comment on above: Performed By: #### C BC #### [facility] [address] [address] [address] Grzegorz Wang Protein [Mass/Vol] 6.2 g/dL Critically low 6.4-8.2 Th [facility] Comment on above: Performed By: #### C BC #### [facility] [address] [address] [address] Grzegorz Wang Sodium [Moles/Vol] 137 mmol/L Normal 136-145 [facility] Comment on above: Performed By: #### C BC #### [facility] [address] [address] [address] Grzegorz Wang Urea nitrogen [Mass/Vol] 83.0 mg/dL Critically high 7.0-18.0 [facility] Comment on above: Result Comment: repe ated Performed By: #### C BC #### [facility] [address] [address] [address] Grzegorz Wang Urea nitrogen/Creatinine [Mass ratio] 49.4 mg/mg Normal [facility] Comment on above: Performed By: #### C BC #### [facility] [address] [address] [address] Grzegorz Wang PROTIMEon 10-16-2021 INR Coag (PPP) [Relative time] 0.99 {INR} Normal [facility] Comment on above: Performed By: #### P T, PTT #### [facility] [address] [place] [address] Dr. Grzegorz Wang INR GUIDELINES SEE BELOW Normal [facility] Comment on above: Result Comment: [place]ENT[place] RED INR: 2.0 - 3.0 CONDITIONS NOT LISTED BELOW 2.5 - 3.5 FOR PROSTHETIC HEART VALVE REPLACEMENT 2.5 - 3.5 RECURRENT THROMBOSIS Performed By: #### P T, PTT #### [facility] [address] [place] [address] Dr. Grzegorz Wang PT Coag (PPP) [Time] 10.7 s Normal 9.0-11.6 [facility] Comment on above: Performed By: #### P T, PTT #### [facility] [address] [place] [address] Dr. Grzegorz Wang PTTon 10-16-2021 aPTT Coag (Bld) [Time] 23.5 s Normal 22.3-36.2 [facility] Comment on above: Performed By: #### P T, PTT #### [facility] [address] [place] [address] Dr. Grzegorz Wang TYPE AND SCREENon 10-16-2021 TYPE AND SCREEN Negative Normal [facility] Comment on above: Performed By: #### C BC #### [facility] [address] [place] [address] Dr. Grzegorz Wang URINE MICROSCOPIC ONLYon BACTERIA NONE SEEN Normal NONE SEEN [facility] Comment on above: Performed By: #### A MY, LIPA #### [facility] [address] [place] [address] Dr. Grzegorz Wang Bacteria identified Cx Nom (U) NOT INDICATED Normal [facility] Comment on above: Performed By: #### A MY, LIPA #### [facility] [address] [place] [address] Dr. Grzegorz Wang CAST NONE SEEN Normal NONE SEEN [facility] Comment on above: Performed By: #### A MY, LIPA #### [facility] [address] [place], [place] [id number] Dr. Grzegorz Wang Crystals LM Nom (Urine sed) NONE SEEN Normal NONE SEEN [facility] Comment on above: Performed By: #### A MY, LIPA #### [facility] [address] [place] [address] Dr. Grzegorz Wang Epithelial cells LM Ql (Urine sed) RARE Normal NONE SEEN /RARE [facility] Comment on above: Performed By: #### A MY, LIPA #### [facility] [address] [place] [address] Dr. Grzegorz Wang MUCOUS NONE SEEN Normal NONE SEEN [facility] Comment on above: Performed By: #### A MY, LIPA #### [facility] [address] [place] [address] Dr. Grzegorz Wang RBC NONE SEEN Abnormal 0-2 [facility] Comment on above: Performed By: #### A MY, LIPA #### [facility] [address] [place] [address] Dr. Grzegorz Wang WBC NONE SEEN Normal NONE SEEN [facility] Comment on above: Performed By: #### A BRAYDEN LIPA #### [facility] [address] [place] [address] Dr. Grzegorz Wang BNPon 09-02-2021 Natriuretic peptide B (Bld) [Mass/Vol] 140.0 pg/mL Normal <=900.0 [facility] Comment on above: Performed By: #### C BC #### [facility] [address] [place] [address] Dr. Grzegorz Wang CARDIAC BAMBI ADMITon 022 CK [Catalytic activity/Vol] 121 U/L Normal 26-192 [facility] Comment on above: Performed By: #### C BC #### [facility] [address] [place] [address] Dr. Grzegorz Wang CK.MB [Mass/Vol] 2.44 ng/mL Normal <=3.60 [facility] Comment on above: Performed By: #### C BC #### [facility] [address] [place] [address] Dr. Grzegorz Wang HSTROP 9.8 pg/mL Normal 4.0-51.3 [facility] Comment on above: Result Comment: CUT- OFF POINTS HAVE BEEN ESTABLISHED BASED ON THE FOURTH UNIVERSAL DEFINITIONS OF MYOCARDIAL INFARCTION. THE UPPER REFERENCE LIMIT (URL) OF TROPONIN, DEFINED THE 99TH PERCENTILE OF cTnI DISTRIBUTION IN A REFERENCE POPULATION, HAS BEEN CONFIRMED THE DECISION THRESHOLD FOR MO DIAGNOSIS. Performed By: #### C BC #### [facility] [address] [address] [address] Grzegorz Wang MITZI 109 ng/mL Critically high 9-82 [facility] Comment on above: Performed By: #### C BC #### [facility] [address] [place] [address] Dr. Grzegorz Wang CBC AUTO DIFFon 09-02-2021 BASO # 0.0 103/ul Normal 0.0-0.1 [facility] Comment on above: Performed By: #### C BC #### [facility] [address] [place] [address] Dr. Grzegorz Wang Basophils/100 WBC (Bld) 0.5 % Normal 0.2-2.[address] [facility] Comment on above: Performed By: #### C BC #### [facility] [address] [place] [address] Dr. Grzegorz Wang EO # 0.1 103/ul Normal 0.0-0.7 [facility] Comment on above: Performed By: #### C BC #### [facility] [address] [place] [address] Dr. Grzegorz Wang Eosinophils/100 WBC (Bld) 3.1 % Normal 0.9-7.0 [facility] Comment on above: Performed By: #### C BC #### [facility] [address] [place] [address] Dr. Grzegorz Wang Erythrocyte distribution width (RBC) [Ratio] 16.0 % Critically high 11.0-15.0 [facility] Comment on above: Performed By: #### C BC #### [facility] [address] [place] [address] Dr. Grzegorz Wang Hematocrit (Bld) [Volume fraction] 32.0 % Critically low 36.0-48.0 [facility] Comment on above: Performed By: #### C BC #### [facility] [address] [place] [address] Dr. Grzegorz Wang Hemoglobin (Bld) [Mass/Vol] 10.1 g/dL Critically low 12.0-16.0 [facility] Comment on above: Performed By: #### C BC #### [facility] [address] [place] [address] Dr. Grzegorz Wang IG # 0.01 10e3/ul Normal 0.00-0.03 [facility] Comment on above: Performed By: #### C BC #### [facility] [address] [place] [address] Dr. Grzegorz Wang IG % 0.3 % Normal 0.0-0.5 [facility] Comment on above: Performed By: #### C BC #### [facility] [address] [place] [address] Dr. Grzegorz Wang LYMPH # 1.7 103/ul Normal 1.2-3.8 [facility] Comment on above: Performed By: #### C BC #### [facility] [address] [place] [address] Dr. Grzegorz Wang Lymphocytes/100 WBC (Bld) 43.1 % Normal 20.5-60.0 [facility] Comment on above: Performed By: #### C BC #### [facility] [address] [place] [address] Dr. Grzegorz Wang MANUAL DIFF REQ NO Normal [facility] Comment on above: Performed By: #### C BC #### [facility] [address] [place] [address] Dr. Grzegorz Wang MCH (RBC) [Entitic mass] 23.9 pg Critically low 26.7-34.0 [facility] Comment on above: Performed By: #### C BC #### [facility] [address] [place] [address] Dr. Grzegorz Wang MCHC (RBC) [Mass/Vol] 31.6 g/dL Normal 29.9-35.2 [facility] Comment on above: Performed By: #### C BC #### [facility] [address] [address] [address] Grzegorz Wang MCV (RBC) [Entitic vol] 75.8 fL Critically low 81.0-99. 0 [facility] Comment on above: Performed By: #### C BC #### [facility] [address] [address] [address] Grzegorz Wang MONO # 0.4 103/ul Normal 0.3-0.8 [facility] Comment on above: Performed By: #### C BC #### [facility] [address] [address] [address] Grzegorz Wang Monocytes/100 WBC (Bld) 9.7 % Normal 1.7-12.[address] [facility] Comment on above: Performed By: #### C BC #### [facility] [address] [place] [address] Dr. Grzegorz Wang NEUT # 1.7 103/ul Normal 1.4-6.5 [facility] Comment on above: Performed By: #### C BC #### [facility] [address] [place] [address] Dr. Grzegorz Wang Neutrophils/100 WBC (Bld) 43.3 % Normal 43.0-75.0 [facility] Comment on above: Performed By: #### C BC #### [facility] [address] [place] [address] Dr. Grzegorz Wang Platelet mean volume (Bld) [Entitic vol] 10.1 fL Normal 9.5-13.5 [facility] Comment on above: Performed By: #### C BC #### [facility] [address] [place] [address] Dr. Grzegorz Wang PLT 179 103/ul Normal 150-450 [facility] Comment on above: Performed By: #### C BC #### [facility] [address] [address] [address] Grzegorz Wang RBC 4.22 106/ul Normal 4.20-5.40 [facility] Comment on above: Performed By: #### C BC #### [facility] [address] [place], [place] [address] Dr. Grzegorz Wang WBC 3.8 103/ul Critically low 4.0-11.0 [facility] Comment on above: Performed By: #### C BC #### [facility] [address] [place], [place] [address] CSPINE WO CONon [...] JEAN-PIERRE GIRALDO Date: 2021-09-02 19:33 Normal [facility] CT STROKE HEAD WOon 09-03-19 22 [...] JEAN-PIERRE GIRALDO Date: 2021-09-02 19:29 Normal [facility] Covid-19 PCR (CVDTBH)on 08-12 SARS-CoV-2 (COVID-19) RNA SIOBHAN+probe Ql (Unsp spec) Detected Critically abnormal NOT DETECTED [facility] Comment on above: Result Comment: This test is not yet approved or cleared by the [place] FDA. When there are no FDA-approved or cleared tests available, and other criteria are met, FDA can make tests available under an emergency access mechanism called an Emergency Use Authorization (EUA). The EUA for this test is supported by the Oncology Nurse of Health and Human Service's declaration that [...] used). Performed By: #### C BC #### [facility] [address] [place] [address] Dr. Grzegorz Wang DRUG SCREEN RAPID (URINE)on 09-02-2021 AMP Negative Normal NEGATIVE [facility] Comment on above: Performed By: #### E RUR #### [facility] [address] [place] [address] Dr. Grzegorz Wang BAR Negative Normal NEGATIVE [facility] Comment on above: Performed By: #### E RUR #### [facility] [address] [place] [address] Dr. Grzegorz Wang BUP Negative Normal NEGATIVE [facility] Comment on above: Performed By: #### E RUR #### [facility] [address] [place] [address] Dr. Grzegorz Wang BZO Negative Normal NEGATIVE [facility] Comment on above: Performed By: #### E RUR #### [facility] [address] [place] [address] Dr. Grzegorz Wang MITZY Negative Normal NEGATIVE [facility] Comment on above: Performed By: #### E RUR #### [facility] [address] [place], [place] [id number] Dr. Grzegorz Wang CUT-OFFS SEE BELOW Normal [facility] Comment on above: Result Comment: AMP (Amphetamine): 500ng/mL, BAR (Barbituates): 200 ng/mL, BZO (Benzodiazepines): 150 ng/mL, BUP (Buprenorphine): 10 ng/mL, MITZY (Cocaine): 150 ng/mL, mAMP (Methamphetamine): 500 ng/mL, MTD (Methadone): 200 ng/mL, OPI (Opiates): 100 ng/mL, OXY (Oxycodone): 100 ng/mL, PCP (Phencyclidine): 25 ng/mL, PPX (Propoxyphene): 300 ng/mL, THC (Cannabinoids): 50 ng/mL, TCA (Trycyclic Antidepressants): 300 ng/mL Performed By: #### E RUR #### [facility] [address] [place] [address] Dr. Grzegorz Wang DRUG CUT HEADER DRUG CLASS TEST SYSTEM CUT-OFF CONCENTRATIONS ARE FOLLOWS: Normal [facility] Comment on above: Performed By: #### E RUR #### [facility] [address] [place] [address] Dr. Grzegorz Wang mAMP Negative Normal NEGATIVE [facility] Comment on above: Performed By: #### E RUR #### [facility] [address] [place] [address] Dr. Grzegorz Wang MTD Negative Normal NEGATIVE [facility] Comment on above: Performed By: #### E RUR #### [facility] [address] [place] [address] Dr. Grzegorz Wang OPI Negative Normal NEGATIVE [facility] Comment on above: Performed By: #### E RUR #### [facility] [address] [place] [address] Dr. Grzegorz Wang OXY Negative Normal NEGATIVE [facility] Comment on above: Performed By: #### E RUR #### [facility] [address] [place] [address] Dr. Grzegorz Wang PCP Negative Normal NEGATIVE [facility] Comment on above: Performed By: #### E RUR #### [facility] [address] [place] [address] Dr. Grzegorz Wang PPX Negative Normal NEGATIVE [facility] Comment on above: Performed By: #### E RUR #### [facility] [address] [place] [address] Dr. Grzegorz Wang TCA Positive Abnormal NEGATIVE [facility] Comment on above: Performed By: #### E RUR #### [facility] [address] [place] [address] Dr. Grzegorz Wang THC Negative Normal NEGATIVE [facility] Comment on above: Performed By: #### E RUR #### [facility] [address] [place] [address] Dr. Grzegorz Wang LACTATE/LACTIC ACIDon 2021 Lactate [Moles/Vol] 0.7 mmol/L Normal 0.4-1.9 [facility] Comment on above: Performed By: #### E RUR #### [facility] [address] [place] [address] Dr. Grzegorz Wang PROF 14(COMP METB)on 022 Albumin [Mass/Vol] 3.1 g/dL Critically low 3.4-5.0 [facility] Comment on above: Performed By: #### C BC #### [facility] [address] [place] [address] Dr. Grzegorz Wang Albumin/Globulin [Mass ratio] 1.0 {ratio} Normal [facility] Comment on above: Performed By: #### C BC #### [facility] [address] [place] [address] Dr. Grzegorz Wang ALP [Catalytic activity/Vol] 81 U/L Normal 46-116 [facility] Comment on above: Performed By: #### C BC #### [facility] [address] [place] [address] Dr. Grzegorz Wang ALT [Catalytic activity/Vol] 21 U/L Normal 14-59 [facility] Comment on above: Performed By: #### C BC #### [facility] [address] [place] [address] Dr. Grzegorz Wang Anion gap [Moles/Vol] 11.9 mmol/L Normal Th [facility] Comment on above: Performed By: #### C BC #### [facility] [address] [address] [address] Grzegorz Wang AST [Catalytic activity/Vol] 21 U/L Normal 15-37 [facility] Comment on above: Performed By: #### C BC #### [facility] [address] [address] [address] Grzegorz Wang Bilirubin [Mass/Vol] 0.5 mg/dL Normal 0.2-1.0 [facility] Comment on above: Performed By: #### C BC #### [facility] [address] [address] [address] Grzegorz Wang Calcium [Mass/Vol] 8.3 mg/dL Critically low 8.5-10.1 [facility] Comment on above: Performed By: #### C BC #### [facility] [address] [address] [address] Grzegorz Wang Chloride [Moles/Vol] 100 mmol/L Normal 98-107 [facility] Comment on above: Performed By: #### C BC #### [facility] [address] [address] [address] Grzegorz Wang CO2 [Moles/Vol] 25.6 mmol/L Normal 21.0-32.0 [facility] Comment on above: Performed By: #### C BC #### [facility] [address] [address] [address] Grzegorz Wang Creatinine [Mass/Vol] 1.39 mg/dL Critically high 0.55-1.02 [facility] Comment on above: Performed By: #### C BC #### [facility] [address] [address] [address] Grzegorz Wang EGFR-AF BELARUSIAN 45 mL/min/1.73m2 Critically low >=60 [facility] Comment on above: Performed By: #### C BC #### [facility] [address] [address] [address] Grzegorz Wang EGFR-NON AF BELARUSIAN 37 mL/min/1.73m2 Critically low >=60 [facility] Comment on above: Performed By: #### C BC #### [facility] [address] [address] [address] Grzegorz Wang Globulin (S) [Mass/Vol] 3.1 g/dL Normal T [facility] Comment on above: Performed By: #### C BC #### [facility] [address] [address] [address] Grzegorz Wang Glucose [Mass/Vol] 96 mg/dL Normal 74-106 [facility] Comment on above: Performed By: #### C BC #### [facility] [address] [address] [address] Grzegorz Wang Potassium [Moles/Vol] 3.5 mmol/L Normal 3.5-5.1 [facility] Comment on above: Performed By: #### C BC #### [facility] [address] [address] [address] Grzegorz Wang Protein [Mass/Vol] 6.2 g/dL Critically low 6.4-8.2 [facility] Comment on above: Performed By: #### C BC #### [facility] [address] [address] [address] Grzegorz Wang Sodium [Moles/Vol] 134 mmol/L Critically low 136-145 [facility] Comment on above: Performed By: #### C BC #### [facility] [address] [address] [address] Grzegorz Wang Urea nitrogen [Mass/Vol] 33.0 mg/dL Critically high 7.0-18.0 [facility] Comment on above: Performed By: #### C BC #### [facility] [address] [address] [address] Grzegorz Wang Urea nitrogen/Creatinine [Mass ratio] 23.7 mg/mg Normal [facility] Comment on above: Performed By: #### C BC #### [facility] [address] [address] [address] Grzegorz Wang PROTIMEon 09-02-2021 INR Coag (PPP) [Relative time] {INR} Normal [facility] Comment on above: Performed By: #### A BRAYDEN, LIPA #### [facility] [address] [place], [place] [address] Dr. Grzegorz Wang INR GUIDELINES SEE BELOW Normal [facility] Comment on above: Result Comment: DENTON RED INR: 2.0 - 3.0 CONDITIONS NOT LISTED BELOW 2.5 - 3.5 FOR PROSTHETIC HEART VALVE REPLACEMENT 2.5 - 3.5 RECURRENT THROMBOSIS Performed By: #### A LUCHO OWENA #### [facility] [address] [place], [place] [address] Dr. Grzegorz Wang PT Coag (PPP) [Time] 10.0 s Normal 9.0-11.6 [facility] Comment on above: Performed By: #### A BRAYDEN LIPA #### [facility] [address] [address] [address] Grzegorz Wang PTTon 09-02-2021 aPTT Coag (Bld) [Time] 32.1 s Normal 22.3-36.2 [facility] Comment on above: Performed By: #### A BRAYDEN LIPA #### [facility] [address] [place], [place] [address] Dr. Grzegorz Wang XR CHEST 1 Von [...] NATACHA CERNA Date: 2021-09-02 19:18 Normal [facility] XR hand RT min 3V*on 022 XR hand RT min 3V* [facility] [employer] Other XR hand RT min 3V* [facility] [employer] Other XR hand RT min 3V* [address] [place] [address] [employer] Other XR hand RT min 3V* [place] [address] [employer] Other XR hand RT min 3V* XRay Report [employer] Other XR hand RT min 3V* Signed [employer] Other XR hand RT min 3V* Patient: Ozzie Gifford MR#: [id number] [employer] Other XR hand RT min 3V* [id number] [employer] Other XR hand RT min 3V* : 1950 Acct:[id number] [employer] Other XR hand RT min 3V* Age/Sex: 71 / F ADM Date: 08/02/21 [employer] Other XR hand RT min 3V* Loc[place] [facility] [place]: Type : [facility] [employer] Other XR hand RT min 3V* Attending Dr: Neeraj Arrington MD [employer] Other XR hand RT min 3V* Copies to: Susie Arrington MD [employer] Other XR hand RT min 3V* Ordering Provider: Susie Arrington MD [employer] Other XR hand RT min 3V* Date of Service: 08/02/21 [employer] Other XR hand RT min 3V* XR/XR hand RT min 3V*: Closed nondisplaced fracture of proximal phalanx [employer] Other XR hand RT min 3V* of right mi [employer] Other XR hand RT min 3V* 4 viewsRIGHT hand plain film [employer] Other XR hand RT min 3V* COMPARISON:07/12/21 [employer] Other XR hand RT min 3V* HISTORY:Status post RIGHT long finger proximal phalanx fracture [employer] Other XR hand RT min 3V* No bony alignment stable. No interval healing. Extensive degeneration. [employer] Other XR hand RT min 3V* XR/XR hand RT min 3V* [employer] Other XR hand RT min 3V* IMPRESSION:Stable findings [employer] Other XR hand RT min 3V* Impression dictated by: Husam Martinez M.D.08/02/2021 12:13 PM [employer] Other XR hand RT min 3V* Dictation Location: [address] [address] [employer] Other XR hand RT min 3V* Transcribed By: [facility] 08/02/21 1213 [employer] Other XR hand RT min 3V* Dictated By: Husam Martinez DO 08/02/21 1210 [employer] Other XR hand RT min 3V* Signed By: [employer] Other XR hand RT min 3V* 08/02/21 1213 [facility] [employer] Other BNPon 07-29-2021 Natriuretic peptide B (Bld) [Mass/Vol] 192.0 pg/mL Normal <=900.0 [facility] Comment on above: Performed By: #### E RUR #### [facility] [address] [place] [address] Dr. Grzegorz Wang CARDIAC BAMBI ADMITon 022 CK [Catalytic activity/Vol] 82 U/L Normal 26-192 [facility] Comment on above: Performed By: #### E RUR #### [facility] [address] [address] [address] Grzegorz Wang CK.MB [Mass/Vol] 2.40 ng/mL Normal <=3.60 [facility] Comment on above: Performed By: #### E RUR #### [facility] [address] [address] [address] Grzegorz Wang HSTROP 4.7 pg/mL Normal 4.0-51.3 [facility] Comment on above: Result Comment: CUT- OFF POINTS HAVE BEEN ESTABLISHED BASED ON THE FOURTH UNIVERSAL DEFINITIONS OF MYOCARDIAL INFARCTION. THE UPPER REFERENCE LIMIT (URL) OF TROPONIN, DEFINED THE 99TH PERCENTILE OF cTnI DISTRIBUTION IN A REFERENCE POPULATION, HAS BEEN CONFIRMED THE DECISION THRESHOLD FOR MO DIAGNOSIS. Performed By: #### E RUR #### [facility] [address] [place] [address] Dr. Grzegorz Wang MITZI 70 ng/mL Normal 9-82 [facility] Comment on above: Performed By: #### E RUR #### [facility] [address] [place] [address] Dr. Grzegorz Wang CBC AUTO DIFFon 07-29-2021 BASO # 0.0 103/ul Normal 0.0-0.1 [facility] Comment on above: Performed By: #### E RUR #### [facility] [address] [place] [address] Dr. Grzegorz Wang Basophils/100 WBC (Bld) 0.7 % Normal 0.2-2.[address] [facility] Comment on above: Performed By: #### E RUR #### [facility] [address] [place] [address] Dr. Grzegorz Wang EO # 0.2 103/ul Normal 0.0-0.7 [facility] Comment on above: Performed By: #### E RUR #### [facility] [address] [place] [address] Dr. Grzegorz Wang Eosinophils/100 WBC (Bld) 4.1 % Normal 0.9-7.0 [facility] Comment on above: Performed By: #### E RUR #### [facility] [address] [place] [address] Dr. Grzegorz Wang Erythrocyte distribution width (RBC) [Ratio] 15.7 % Critically high 11.0-15.0 [facility] Comment on above: Performed By: #### E RUR #### [facility] [address] [place] [address] Dr. Grzegorz Wang Hematocrit (Bld) [Volume fraction] 32.6 % Critically low 36.0-48.0 [facility] Comment on above: Performed By: #### E RUR #### [facility] [address] [place] [address] Dr. Grzegorz Wang Hemoglobin (Bld) [Mass/Vol] 9.9 g/dL Critically low 12.0-16.0 [facility] Comment on above: Performed By: #### E RUR #### [facility] [address] [place] [address] Dr. Grzegorz Wang IG # 0.02 10e3/ul Normal 0.00-0.03 [facility] Comment on above: Performed By: #### E RUR #### [facility] [address] [place] [address] Dr. Grzegorz Wang IG % 0.3 % Normal 0.0-0.5 [facility] Comment on above: Performed By: #### E RUR #### [facility] [address] [place] [address] Dr. Grzegorz Wang LYMPH # 1.7 103/ul Normal 1.2-3.8 [facility] Comment on above: Performed By: #### E RUR #### [facility] [address] [place] [address] Dr. Grzegorz Wang Lymphocytes/100 WBC (Bld) 28.0 % Normal 20.5-60.0 [facility] Comment on above: Performed By: #### E RUR #### [facility] [address] [place] [address] Dr. Grzegorz Wang MANUAL DIFF REQ NO Normal [facility] Comment on above: Performed By: #### E RUR #### [facility] [address] [place] [address] Dr. Grzegorz Wang MCH (RBC) [Entitic mass] 23.9 pg Critically low 26.7-34.0 [facility] Comment on above: Performed By: #### E RUR #### [facility] [address] [place] [address] Dr. Grzegorz Wang MCHC (RBC) [Mass/Vol] 30.4 g/dL Normal 29.9-35.2 [facility] Comment on above: Performed By: #### E RUR #### [facility] [address] [place] [address] Dr. Grzegorz Wang MCV (RBC) [Entitic vol] 78.7 fL Critically low 81.0-99. 0 [facility] Comment on above: Performed By: #### E RUR #### [facility] [address] [place] [address] Dr. Grzegorz Wang MONO # 0.6 103/ul Normal 0.3-0.8 [facility] Comment on above: Performed By: #### E RUR #### [facility] [address] [place] [address] Dr. Grzegorz Wang Monocytes/100 WBC (Bld) 10.4 % Normal 1.7-12.[address] [facility] Comment on above: Performed By: #### E RUR #### [facility] [address] [place] [address] Dr. Grzegorz Wang NEUT # 3.3 103/ul Normal 1.4-6.5 [facility] Comment on above: Performed By: #### E RUR #### [facility] [address] [place] [address] Dr. Grzegorz Wang Neutrophils/100 WBC (Bld) 56.5 % Normal 43.0-75.0 [facility] Comment on above: Performed By: #### E RUR #### [facility] [address] [place] [address] Dr. Grzegorz Wang Platelet mean volume (Bld) [Entitic vol] 10.2 fL Normal 9.5-13.5 [facility] Comment on above: Performed By: #### E RUR #### [facility] [address] [place] [address] Dr. Grzegorz Wang PLT 216 103/ul Normal 150-450 [facility] Comment on above: Performed By: #### E RUR #### [facility] [address] [place] [address] Dr. Grzegorz Wang RBC 4.14 106/ul Critically low 4.20-5.40 [facility] Comment on above: Performed By: #### E RUR #### [facility] [address] [place] [address] Dr. Grzegorz Wang WBC 5.9 103/ul Normal 4.0-11.0 [facility] Comment on above: Performed By: #### E RUR #### [facility] [address] [place] [address] HEAD WO CONon [...] DORIAN GREENE Date: 2021-07-29 15:01 Normal [facility] ER URINE PROFILEon 2 Bilirubin Ql (U) Negative Normal NEGATIVE [facility] Comment on above: Performed By: #### E RUR #### [facility] [address] [place] [address] Dr. Grzegorz Wang Clarity (U) CLEAR Normal CLEAR [facility] Comment on above: Performed By: #### E RUR #### [facility] [address] [place] [address] Dr. Grzegorz Wang Color (U) LT. YELLOW Normal YELLOW [facility] Comment on above: Performed By: #### E RUR #### [facility] [address] [place] [address] Dr. Grzegorz Wang ERUAHD A micrscopic examination will be performed if indicated. Normal [facility] Comment on above: Performed By: #### E RUR #### [facility] [address] [place] [address] Dr. Grzegorz Wang Glucose Ql (U) Negative Normal NEGATIVE [facility] Comment on above: Performed By: #### E RUR #### [facility] [address] [place] [address] Dr. Grzegorz Wang Hemoglobin Ql (U) Negative Normal NEGATIVE [facility] Comment on above: Performed By: #### E RUR #### [facility] [address] [place] [address] Dr. Grzegorz Wang Ketones Ql (U) Negative Normal NEGATIVE [facility] Comment on above: Performed By: #### E RUR #### [facility] [address] [place] [address] Dr. Grzegorz Wang LEUKOCYTES Negative Normal NEGATIVE [facility] Comment on above: Performed By: #### E RUR #### [facility] [address] [place] [address] Dr. Grzegorz Wang Nitrite Ql (U) Negative Normal NEGATIVE [facility] Comment on above: Performed By: #### E RUR #### [facility] [address] [place] [address] Dr. Grzegorz Wang pH (U) 5.5 [pH] Normal 5-9 [facility] Comment on above: Performed By: #### E RUR #### [facility] [address] [place] [address] Dr. Grzegorz Wang SPEC GRAVITY 1.010 Normal 1.005-<=1.0 25 [facility] Comment on above: Performed By: #### E RUR #### [facility] [address] [place] [address] Dr. Grzegorz Wang UA PROTEIN Negative Normal NEGATIVE/ TRACE [facility] Comment on above: Performed By: #### E RUR #### [facility] [address] [place] [address] Dr. Grzegorz Wang UR MICRO IND NOT INDICATED Normal [facility] Comment on above: Performed By: #### E RUR #### [facility] [address] [place] [address] Dr. Grzegorz Wang Urobilinogen Qn (U) 0.2 {Lidya'U}/dL Normal 0.2 - 1. 0 [facility] Comment on above: Performed By: #### E RUR #### [facility] [address] [place] [address] Dr. Grzegorz Wang PROF 14(COMP METB)on 022 Albumin [Mass/Vol] 3.1 g/dL Critically low 3.4-5.0 [facility] Comment on above: Performed By: #### E RUR #### [facility] [address] [place] [address] Dr. Grzegorz Wang Albumin/Globulin [Mass ratio] 1.0 {ratio} Normal [facility] Comment on above: Performed By: #### E RUR #### [facility] [address] [place] [address] Dr. Grzegorz Wang ALP [Catalytic activity/Vol] 99 U/L Normal 46-116 [facility] Comment on above: Performed By: #### E RUR #### [facility] [address] [place] [address] Dr. Grzegorz Wang ALT [Catalytic activity/Vol] 18 U/L Normal 14-59 [facility] Comment on above: Performed By: #### E RUR #### [facility] [address] [place] [address] Dr. Grzegorz Wang Anion gap [Moles/Vol] 10.5 mmol/L Normal Th [facility] Comment on above: Performed By: #### E RUR #### [facility] [address] [place] [address] Dr. Grzegorz Wang AST [Catalytic activity/Vol] 14 U/L Critically low 15-37 [facility] Comment on above: Performed By: #### E RUR #### [facility] [address] [place] [address] Dr. Grzegorz Wang Bilirubin [Mass/Vol] 0.3 mg/dL Normal 0.2-1.0 [facility] Comment on above: Performed By: #### E RUR #### [facility] [address] [place] [address] Dr. Grzegorz Wang Calcium [Mass/Vol] 8.5 mg/dL Normal 8.5-10.1 [facility] Comment on above: Performed By: #### E RUR #### [facility] [address] [place] [address] Dr. Grzegorz Wang Chloride [Moles/Vol] 108 mmol/L Critically high 98-107 [facility] Comment on above: Performed By: #### E RUR #### [facility] [address] [place] [address] Dr. Grzegorz Wang CO2 [Moles/Vol] 26.0 mmol/L Normal 21.0-32.0 [facility] Comment on above: Performed By: #### E RUR #### [facility] [address] [place] [address] Dr. Grzegorz Wang Creatinine [Mass/Vol] 1.07 mg/dL Critically high 0.55-1.02 [facility] Comment on above: Performed By: #### E RUR #### [facility] [address] [place] [address] Dr. Grzegorz Wang EGFR-AF BELARUSIAN >60 Normal >=60 [facility] Comment on above: Performed By: #### E RUR #### [facility] [address] [place] [address] Dr. Grzegorz Wang EGFR-NON AF BELARUSIAN 50 mL/min/1.73m2 Critically low >=60 [facility] Comment on above: Performed By: #### E RUR #### [facility] [address] [place] [address] Dr. Grzegorz Wang Globulin (S) [Mass/Vol] 3.0 g/dL Normal T [facility] Comment on above: Performed By: #### E RUR #### [facility] [address] [place] [address] Dr. Grzegorz Wang Glucose [Mass/Vol] 87 mg/dL Normal 74-106 [facility] Comment on above: Performed By: #### E RUR #### [facility] [address] [place] [address] Dr. Grzegorz Wang Potassium [Moles/Vol] 3.5 mmol/L Normal 3.5-5.1 [facility] Comment on above: Performed By: #### E RUR #### [facility] [address] [place] [address] Dr. Grzegorz Wang Protein [Mass/Vol] 6.1 g/dL Critically low 6.4-8.2 Th [facility] Comment on above: Performed By: #### E RUR #### [facility] [address] [place] [address] Dr. Grzegorz Wang Sodium [Moles/Vol] 141 mmol/L Normal 136-145 [facility] Comment on above: Performed By: #### E RUR #### [facility] [address] [place] [address] Dr. Grzegorz Wang Urea nitrogen [Mass/Vol] 22.0 mg/dL Critically high 7.0-18.0 [facility] Comment on above: Performed By: #### E RUR #### [facility] [address] [place] [address] Dr. Grzegorz Wang Urea nitrogen/Creatinine [Mass ratio] 20.6 mg/mg Normal [facility] Comment on above: Performed By: #### E RUR #### [facility] [address] [place] [address] Dr. Grzegorz Wang PROTIMEon 07-29-2021 INR Coag (PPP) [Relative time] 0.99 {INR} Normal [facility] Comment on above: Performed By: #### P TT, PT #### [facility] [address] [place] [address] Dr. Grzegorz Wang INR GUIDELINES SEE BELOW Normal [facility] Comment on above: Result Comment: DENTON RED INR: 2.0 - 3.0 CONDITIONS NOT LISTED BELOW 2.5 - 3.5 FOR PROSTHETIC HEART VALVE REPLACEMENT 2.5 - 3.5 RECURRENT THROMBOSIS Performed By: #### P TT, PT #### [facility] [address] [place] [address] Dr. Grzegorz Wang PT Coag (PPP) [Time] 10.7 s Normal 9.0-11.6 [facility] Comment on above: Performed By: #### P TT, PT #### [facility] [address] [place], [place] [address] Dr. Grzegorz Wang PTTon 07-29-2021 aPTT Coag (Bld) [Time] 31.0 s Normal 22.3-36.2 Th e [facility] Comment on above: Performed By: #### P TT, PT #### [facility] [address] [place], [place] [address] Dr. Grzegorz Wang XR CHEST 1 Von [...] by: NATACHA TO Date: 2021-07-29 14:54 Normal [facility] XR hand RT min 3V*on 022 XR hand RT min 3V* [facility] Other XR hand RT min 3V* [facility] Other XR hand RT min 3V* [address] [place] [address] [facility] Other XR hand RT min 3V* [place] [address] [facility] Other XR hand RT min 3V* XRay Report [facility] Other XR hand RT min 3V* Signed [facility] Other XR hand RT min 3V* Patient: Ozzie Gifford MR#: [id number] [facility] Other XR hand RT min 3V* [address] [facility] Other XR hand RT min 3V* : 1950 Acct:[id number] [facility] Other XR hand RT min 3V* Age/Sex: 71 / F ADM Date: 07/12/21 [facility] Other XR hand RT min 3V* Loc: SOXD Room: Type : [facility] Other XR hand RT min 3V* Attending Dr: Neeraj Arrington MD [facility] Other XR hand RT min 3V* Ordering Provider: Susie Arrington MD [facility] Other XR hand RT min 3V* Date of Service: 07/12/21 [facility] Other XR hand RT min 3V* XR/XR hand RT min 3V*: Right hand pain [facility] Other XR hand RT min 3V* Copies to: Susie Arrington MD [facility] Other XR hand RT min 3V* XR hand RT min 3V* 07/12/2021 10:43 AM [facility] Other XR hand RT min 3V* SIGNS AND SYMPTOMS: Fall, pain in right hand greatest in the right thumb with swelling [facility] Other XR hand RT min 3V* PROTOCOL: Frontal, lateral, and oblique radiographs of the right hand [facility] Other XR hand RT min 3V* COMPARISON: None [facility] Other XR hand RT min 3V* FINDINGS: [facility] Other XR hand RT min 3V* There is mild narrowing of the distal interphalangeal joints. There is a mild flexion deformity of [facility] Other XR hand RT min 3V* the fifth proximal interphalangeal joint. There is mild narrowing of the first metacarpophalangeal [facility] Other XR hand RT min 3V* junction with mild t o moderate degenerative change at the first carpometacarpal joint. There is no [facility] Other XR hand RT min 3V* evidence of acute displaced fracture. No evidence of dislocation. [facility] Other XR hand RT min 3V* XR/XR hand RT min 3V* [facility] Other XR hand RT min 3V* IMPRESSION: [facility] Other XR hand RT min 3V* No evidence of fracture. [facility] Other XR hand RT min 3V* Degenerative changes are noted, greatest in the thumb. [facility] Other XR hand RT min 3V* There is a mild flexion deformity of the fifth proximal interphalangeal joint. [facility] Other XR hand RT min 3V* Impression dictated by: Bambi Sung M.D.07/12/2021 12:29 PM [facility] Other XR hand RT min 3V* Dictation Location: [place] [address] [facility] Other XR hand RT min 3V* Transcribed By: SHYANN 07/12/21 1229 [facility] Other XR hand RT min 3V* Dictated By: Bambi Sung II, MD 07/12/21 [facility]8 [facility] Other XR hand RT min 3V* Signed By: [place] Other XR hand RT min 3V* 07/12/[address] [place] [address] [facility] Other CBC AUTO DIFFon 05-08-2021 BASO # 0.1 103/ul Normal 0.0-0.1 [facility] Comment on above: Performed By: #### C BC #### [facility] [address] [place] [address] [address] Grzegorz Wang Basophils/100 WBC (Bld) 0.8 % Normal 0.2-2.[address] [facility] Comment on above: Performed By: #### C BC #### [facility] [address] [place] [address] Dr. Grzegorz Wang EO # 0.3 103/ul Normal 0.0-0.7 [facility] Comment on above: Performed By: #### C BC #### [facility] [address] [place] [address] Dr. Grzegorz Wang Eosinophils/100 WBC (Bld) 3.8 % Normal 0.9-7.0 [facility] Comment on above: Performed By: #### C BC #### [facility] [address] [place] [address] Dr. Grzegorz Wang Erythrocyte distribution width (RBC) [Ratio] 14.1 % Normal 11.0-15.0 [facility] Comment on above: Performed By: #### C BC #### [facility] [address] [place] [address] Dr. Grzegorz Wang Hematocrit (Bld) [Volume fraction] 34.4 % Critically low 36.0-48.0 [facility] Comment on above: Performed By: #### C BC #### [facility] [address] [place] [address] Dr. Grzegorz Wang Hemoglobin (Bld) [Mass/Vol] 10.4 g/dL Critically low 12.0-16.0 [facility] Comment on above: Performed By: #### C BC #### [facility] [address] [place] [address] Dr. Grzegorz Wang IG # 0.04 10e3/ul Critically high 0.00-0.03 [facility] Comment on above: Performed By: #### C BC #### [facility] [address] [place] [address] Dr. Grzegorz Wang IG % 0.5 % Normal 0.0-0.5 [facility] Comment on above: Performed By: #### C BC #### [facility] [address] [place] [address] Dr. Grzegorz Wang LYMPH # 1.7 103/ul Normal 1.2-3.8 [facility] Comment on above: Performed By: #### C BC #### [facility] [address] [place] [address] Dr. Grzegorz Wang Lymphocytes/100 WBC (Bld) 22.1 % Normal 20.5-60.0 [facility] Comment on above: Performed By: #### C BC #### [facility] [address] [place] [address] Dr. Grzegorz Wang MANUAL DIFF REQ NO Normal [facility] Comment on above: Performed By: #### C BC #### [facility] [address] [place] [address] Dr. Grzegorz Wang MCH (RBC) [Entitic mass] 25.6 pg Critically low 26.7-34.0 [facility] Comment on above: Performed By: #### C BC #### [facility] [address] [place] [address] Dr. Grzegorz Wang MCHC (RBC) [Mass/Vol] 30.2 g/dL Normal 29.9-35.2 [facility] Comment on above: Performed By: #### C BC #### [facility] [address] [place] [address] Dr. Grzegorz Wang MCV (RBC) [Entitic vol] 84.5 fL Normal 81.0-99.[address] [facility] Comment on above: Performed By: #### C BC #### [facility] [address] [place] [address] Dr. Grzegorz Wang MONO # 0.8 103/ul Normal 0.3-0.8 [facility] Comment on above: Performed By: #### C BC #### [facility] [address] [place] [address] Dr. Grzegorz Wang Monocytes/100 WBC (Bld) 11.1 % Normal 1.7-12.[address] [facility] Comment on above: Performed By: #### C BC #### [facility] [address] [place] [address] Dr. Grzegorz Wang NEUT # 4.7 103/ul Normal 1.4-6.5 [facility] Comment on above: Performed By: #### C BC #### [facility] [address] [place] [address] [address] Grzegorz Wang Neutrophils/100 WBC (Bld) 61.7 % Normal 43.0-75.0 [facility] Comment on above: Performed By: #### C BC #### [facility] [address] [place] [address] Grzegorz Wang Platelet mean volume (Bld) [Entitic vol] 10.6 fL Normal 9.5-13.5 [facility] Comment on above: Performed By: #### C BC #### [facility] [address] [place] [address] Grzegorz Wang PLT 281 103/ul Normal 150-450 [facility] Comment on above: Performed By: #### C BC #### [facility] [address] [place] [address] [address] Grzegorz Wang RBC 4.07 106/ul Critically low 4.20-5.40 [facility] Comment on above: Performed By: #### C BC #### [facility] [address] [place] [address] Grzegorz Wang WBC 7.6 103/ul Normal 4.0-11.0 [facility] Comment on above: Performed By: #### C BC #### [facility] [address] [place], [place] [id number] Dr. Grzegorz Wang CT CHEST WO CONon [...] LUCI MARADIAGA Date: 2021-05-08 18:59 Normal [facility] CT HEAD WO CONon 05-08-2021 CT [...] MITZI LOWRY Date: 2021-05-08 17:27 Normal [facility] CT NECK ST WO CONon 05-09-19 [...] The parotid glands, parapharyngeal spaces and left legal consultant spaces appear normal. A tiny amount of air in the venous system in the right parapharyngeal space and in the venous system of the right legal consultant space. A tiny amount air in probably [...] space and venous system in the right legal consultant space, likely iatrogenic. No abnormal fluid collection. Prior right carotid endarterectomy. 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 Electronically authenticated by: BASIM CABAN Date: 2021-05-08 19:23 Normal [facility] PROF CHEM 8 (BAS METB)on Anion gap [Moles/Vol] 12.3 mmol/L Normal [facility] Comment on above: Performed By: #### A MY LIPA #### [facility] [address] [place] [address] [address] Grzegorz Wang Calcium [Mass/Vol] 8.4 mg/dL Critically low 8.5-10.1 [facility] Comment on above: Performed By: #### A MY LIPA #### [facility] [address] [place], [place] [address] Dr. Grzegorz Wang Chloride [Moles/Vol] 108 mmol/L Critically high 98-107 [facility] Comment on above: Performed By: #### A MY LIPA #### [facility] [address] [place] [address] Dr. Grzegorz Wang CO2 [Moles/Vol] 25.9 mmol/L Normal 22.0-30.0 [facility] Comment on above: Performed By: #### A MY, LIPA #### [facility] [address] [place] [address] Dr. Grzegorz Wang Creatinine [Mass/Vol] 1.18 mg/dL Critically high 0.52-1.04 [facility] Comment on above: Performed By: #### A BRAYDEN LIPA #### [facility] [address] [place] [address] Dr. Grzegorz Wang EGFR-AF BELARUSIAN 55 mL/min/1.73m2 Critically low >=60 [facility] Comment on above: Performed By: #### A BRAYDEN LIPA #### [facility] [address] [place] [address] Dr. Grzegorz Wang EGFR-NON AF BELARUSIAN 45 mL/min/1.73m2 Critically low >=60 [facility] Comment on above: Performed By: #### A BRAYDEN LIPA #### [facility] [address] [place] [address] Dr. Grzegorz Wang Glucose [Mass/Vol] 84 mg/dL Normal 74-106 [facility] Comment on above: Performed By: #### A BRAYDEN LIPA #### [facility] [address] [place] [address] Dr. Grzegorz Wang Potassium [Moles/Vol] 3.2 mmol/L Critically low 3.4-5.0 [facility] Comment on above: Performed By: #### A MY LIPA #### [facility] [address] [place] [address] Dr. Grzegorz Wang Sodium [Moles/Vol] 143 mmol/L Normal 137-145 [facility] Comment on above: Performed By: #### A MY LIPA #### [facility] [address] [place] [address] Dr. Grzegorz Wang Urea nitrogen [Mass/Vol] 35.0 mg/dL Critically high 7.0-18.0 [facility] Comment on above: Performed By: #### A PHIL OWEN #### [facility] [address] [place], [place] [address] Dr. Grzegorz Wang Urea nitrogen/Creatinine [Mass ratio] 29.7 mg/mg Normal [facility] Comment on above: Performed By: #### A PHIL OWEN #### [facility] [address] [place] [address] Grzegorz Wang XR PELVIS 1_2 VIEWSon [...] LUCI MARADIAGA Date: 2021-05-08 17:24 Normal [facility] XR wrist LT min 3V*on 2021 XR wrist LT min 3V* [facility] Other XR wrist LT min 3V* [facility] [employer] Other XR wrist LT min 3V* [address] [place] [address] [facility] Other XR wrist LT min 3V* [place], [place] [id number] [place] [address] [employer] Other XR wrist LT min 3V* XRay Report [facility] Other XR wrist LT min 3V* Signed [facility] Other XR wrist LT min 3V* Patient: Ozzie Gifford MR#: [id number] [place] [facility] Other XR wrist LT min 3V* [id number] [place] Other XR wrist LT min 3V* : 1950 Acct:[id number] [facility] Other XR wrist LT min 3V* Age/Sex: 70 / F ADM Date: 05/03/21 [facility] Other XR wrist LT min 3V* Loc: SOXD Room: Type : [facility] [place] Other XR wrist LT min 3V* Attending Dr: Neeraj Arrington MD [facility] Other XR wrist LT min 3V* Ordering Provider: Susie Arrington MD [facility] Other XR wrist LT min 3V* Date of Service: 05/03/21 [facility] Other XR wrist LT min 3V* XR/XR wrist LT min 3V*: Other specified postprocedural states [facility] Other XR wrist LT min 3V* Copies to: Susie Arrington MD [facility] Other XR wrist LT min 3V* 4 viewsLEFT wrist plain film [facility] Other XR wrist LT min 3V* COMPARISON:03/31/21 [facility] Other XR wrist LT min 3V* HISTORY:Status post ORIF distal radius fracture [facility] Other XR wrist LT min 3V* No hardware failure. Adequate bony alignment. Healing distal radius fracture noted. [facility] Other XR wrist LT min 3V* XR/XR wrist LT min 3V* [facility] Other XR wrist LT min 3V* IMPRESSION:Healing distal radius fracture. No hardware failure. [facility] Other XR wrist LT min 3V* Impression dictated by: Husam Martinez M.D.05/03/2021 2:12 PM [facility] Other XR wrist LT min 3V* Dictation Location: [place] [address] [facility] Other XR wrist LT min 3V* Transcribed By: SHYANN 05/03/21 1412 [facility] Other XR wrist LT min 3V* Dictated By: Husam Martinez DO 05/03/21 1411 [facility] Other XR wrist LT min 3V* Signed By: [facility] Other XR wrist LT min 3V* 05/03/21 [address] [facility] Other XR FOREARM LT 2 VIEWSon 03-14 [...] by: MARYSE LANGFORD Date: 2021-03-30 20:17 Normal [facility] Cardiovascular Lab Reporton 03-03-2020 Cardiovascular Lab Report [facility] Patient Name: [facility] Ozzie MR #: [id number] Department of Physician: Donna Henderson M.D. Division of Service Date: 03/03/2020 Cardiology Birthdate: 1950 Adult Cardiovascular Room #: [address] [place] [address] Cardiovascular Laboratory Report FINAL IMPRESSION: 1. Moderate [...] femoral vein and artery was obtained. A 6-Gibraltarian 11 cm sheath was inserted in each. Difficulty exchanging the micropuncture kit for a 6-Gibraltarian sheath encountered for the arterial access site; [...] was calculated using the Katelin principle. The Crason catheter was removed. Bilateral selective coronary angiography was performed using JL4 and JR4 catheters. A pigtail catheter was used for left heart catheterization, left ventriculography and aortic pullback pressure measurements. After reviewing the images and data, it was elected to proceed with the physiological assessment of the coronary lesions. A 6-Gibraltarian XB 3.5 guide catheter was advanced over [...] trauma. The guide catheter was removed. A 5-Gibraltarian JR4 guide catheter was advanced in and [...] Doty M.D. Date Trans: 03/03/2020 12:28 P/mmo [id number] cc: Nicolas Carrillo M.D. Heart Failure/ Transplant Mailstop [address] [facility] [address], [employer] [address] [place] Mailstop [address] [facility] [address] Normal The [facility] Vital Signs Date Time Vital Sign Value Performing Clinician Facility 10-16-2022 14:10-0400 Body height 154.94 cm Kori Temple Other [facility] Other 10-16-2022 14:10-0400 Body mass index (BMI) [Ratio] 26.53 kg/m2 Kori Temple Other [facility] Other 10-16-2022 14:10-0400 Body temperature 98.1 [degF] Kori Temple Other [facility] Other 10-16-2022 14:10-0400 Body weight 63.69 kg Kori Windy Other [facility] Other 10-16-2022 14:10-0400 Diastolic blood pressure 81 mm[Hg] Kori Windy Other [facility] Other 10-16-2022 14:10-0400 Respiratory rate 18 /min Kori Windy Other [facility] Other 10-16-2022 14:10-0400 SaO2% (BldA) [Mass fraction] 98 % Kori Windy Other [facility] Other 10-16-2022 14:10-0400 Systolic blood pressure 139 mm[Hg] Kori Temple Other [facility] Other 04-04-2022 09:30-0500 Body height 154.94 cm Denver Juarez Other [facility] Other 04-04-2022 09:30-0500 Body mass index (BMI) [Ratio] 28.72 kg/m2 Denver Juarez Other [facility] Other 04-04-2022 09:30-0500 Body temperature 97.8 [degF] Denver Juarez Other [facility] Other 04-04-2022 09:30-0500 Body weight 68.95 kg Denver Juarez Other [facility] Other 04-04-2022 09:30-0500 Diastolic blood pressure 72 mm[Hg] Denver Juarez Other [facility] Other 04-04-2022 09:30-0500 SaO2% (BldA) [Mass fraction] 98 % Denver Mill[place]orah Other [facility] [employer] Other 04-04-2022 09:30-0500 Systolic blood pressure 116 mm[Hg] Denver Larry Other [facility] [employer] Other 11-22-2021 12:12-0400 Body temperature 97.9 [degF] MD Shaikh Day Work Phone: [facility] 11-22-2021 12:12-0400 Diastolic blood pressure 82 mm[Hg] MD Shaikh Day Work Phone: [facility] 11-22-2021 12:12-0400 Heart rate 95 /min MD Shaikh Day Work Phone: [facility] 11-22-2021 12:12-0400 Respiratory rate 16 /min MD Shaikh Day Work Phone: [facility] 11-22-2021 12:12-0400 SaO2% (BldA) [Mass fraction] 98 % MD Shaikh Day Work Phone: [facility] 11-22-2021 12:12-0400 Systolic blood pressure 151 mm[Hg] MD Shaikh Day Work Phone: [facility] 11-22-2021 04:04-0400 Body weight 78.6 kg MD Shaikh Day Work Phone: [facility] 11-21-2021 17:12-0400 Body height 157.48 cm MD Shaikh Day Work Phone: [facility] 11-21-2021 13:57-0400 Diastolic blood pressure 56 mm[Hg] MD Shaikh Day Work Phone: [facility] 11-21-2021 13:57-0400 Heart rate 77 /min MD Shaikh Day Work Phone: [facility] 11-21-2021 13:57-0400 Respiratory rate 16 /min MD Shaikh Day Work Phone: [facility] 11-21-2021 13:57-0400 SaO2% (BldA) [Mass fraction] 95 % MD Shaikh Day Work Phone: [facility] 11-21-2021 13:57-0400 Systolic blood pressure 117 mm[Hg] MD Shaikh Day Work Phone: [facility] 11-21-2021 11:24-0400 Body temperature 96.9 [degF] MD Shaikh Day Work Phone: [facility] 11-21-2021 03:56-0400 Body height 157.48 cm MD Shaikh Day Work Phone: [facility] 11-21-2021 03:56-0400 Body weight 75.9 kg MD Shaikh Day Work Phone: [facility] 09-27-2021 10:15-0400 Body height 154.94 cm Denver Juarez Other [facility] Other 09-27-2021 10:15-0400 Body mass index (BMI) [Ratio] 35.9 kg/m2 Denver Juarez Other [facility] Other 09-27-2021 10:15-0400 Body temperature 96.2 [degF] Denver Juarez Other [facility] Other 09-27-2021 10:15-0400 Body weight 86.18 kg Denver Juarez Other [facility] Other 09-27-2021 10:15-0400 Diastolic blood pressure 52 mm[Hg] Denver Juarez Other [facility] Other 09-27-2021 10:15-0400 SaO2% (BldA) [Mass fraction] 97 % Denver Juarez Other [facility] Other 09-27-2021 10:15-0400 Systolic blood pressure 110 mm[Hg] Denver Millernorah Other [facility] Other 09-22-2021 14:15-0400 Body height 154.94 cm Ilda Das Other [facility] Other 09-22-2021 14:15-0400 Body mass index (BMI) [Ratio] 35.9 kg/m2 Ilda Das Other [facility] Other 09-22-2021 14:15-0400 Body temperature 98.2 [degF] Ilda Das Other [facility] Other 09-22-2021 14:15-0400 Body weight 86.18 kg Ilda Das Other [facility] Other 09-22-2021 14:15-0400 Respiratory rate 18 /min Ilda Das Other [facility] Other 09-22-2021 14:15-0400 SaO2% (BldA) [Mass fraction] 98 % Ilda Das Other [place] Other 09-20-2021 17:00-0400 Body height 154.94 cm Susie Arrington Other [place] Other 09-20-2021 17:00-0400 Body mass index (BMI) [Ratio] 35.9 kg/m2 Susie Arrington Other [place] Other 09-20-2021 17:00-0400 Body weight 86.18 kg Susie Arrington Other [place] Other 05-03-2021 11:45-0400 Body height 154.94 cm Ssuie Arrington Other [place] Other 05-03-2021 11:45-0400 Body mass index (BMI) [Ratio] 35.9 kg/m2 Susie Arrington Other [place] Other 05-03-2021 11:45-0400 Body weight 86.18 kg Susie Arrington Other [place] Other 03-02-2021 10:00-0500 Body height 154.94 cm Denver uJarez Other [place] Other 03-02-2021 10:00-0500 Body mass index (BMI) [Ratio] 36.27 kg/m2 Denver Juarez Other [place] Other 03-02-2021 10:00-0500 Body temperature 96.5 [degF] Denver Juarez Other [place] Other 03-02-2021 10:00-0500 Body weight 87.09 kg Denver Juarez Other [place] Other 03-02-2021 10:00-0500 Diastolic blood pressure 58 mm[Hg] Denver Juarez Other [place] Other 03-02-2021 10:00-0500 SaO2% (BldA) [Mass fraction] 99 % Denverjessy Juarez Other [place] Other 03-02-2021 10:00-0500 Systolic blood pressure 108 mm[Hg] Denver Juarez Other [place] Other 12-01-2020 10:00-0400 Body height 154.94 cm Denver Juarez Other [place] Other 12-01-2020 10:00-0400 Body mass index (BMI) [Ratio] 36.27 kg/m2 Denver Juarez Other [place] Other 12-01-2020 10:00-0400 Body weight 87.09 kg Denver Larry Other [place] Other 12-01-2020 10:00-0400 Diastolic blood pressure 79 mm[Hg] Denver Juarez Other [place] Other 12-01-2020 10:00-0400 Systolic blood pressure 149 mm[Hg] Denver Juarez Other [place] Other 11-10-2020 10:30-0400 Body height 154.94 cm Denver Juarez Other [place] Other 11-10-2020 10:30-0400 Body mass index (BMI) [Ratio] 35.9 kg/m2 Denver Juarez Other [place] Other 11-10-2020 10:30-0400 Body weight 86.18 kg Denver Juarez Other [place] Other 11-10-2020 10:30-0400 Diastolic blood pressure 84 mm[Hg] Denver Juarez Other [place] Other 11-10-2020 10:30-0400 Systolic blood pressure 150 mm[Hg] Denver Juarez Other [place] Other Encounters Encounter Date Encounter Type Care Provider Facility Start: 02-20-2023 End: 02-20-2023 ambulatory SHAIKH BARB Not Available Start: 02-16-2023 ambulatory [facility] Start: 02-13-2023 End: 02-13-2023 ambulatory [facility] Start: 01-24-2023 Telephone encounter Charlette Burr [facility] Comment on above: paperwork Start: 01-21-2023 ambulatory Shaikh Barb Facility: [facility] Start: 10-16-2022 End: 10-16-2022 ambulatory Kori Temple Other [place] Other Start: 10-16-2022 Office outpatient visit 15 minutes Kori Temple [facility] Start: 08-28-2022 End: 08-28-2022 ambulatory NICOLAS LOMAXBHUPENDRA [facility] Start: 04-04-2022 Office outpatient visit 15 minutes Denver Juarez [facility] Start: 04-04-2022 End: 04-04-2022 ambulatory Denver Juarez [facility] Other Start: 03-06-2022 End: 03-06-2022 ambulatory Earline Harris Other [place] Other Start: 03-06-2022 Telephone encounter Earline Harris [facility] Start: 03-05-2022 End: 03-05-2022 ambulatory MEGHANN FONSECA [facility] Start: 03-02-2022 End: 03-02-2022 ambulatory De Oliveira Fawwad Facility:[facility] Start: 03-02-2022 End: 03-02-2022 ambulatory MD Gerry Hartley Work Phone: [facility] Work Phone: Start: 03-02-2022 End: 03-02-2022 Departed Referred MD Gerry Hartley Work Phone: [facility] [place] Work Phone: Start: 02-21-2022 End: 02-22-2022 ambulatory MEGHANN FONSECA Facility:[facility] Start: 02-20-2022 End: 02-21-2022 ambulatory DE OLIVEIRA H FAWWAD Facility:[facility] Start: 01-31-2022 End: 02-01-2022 ambulatory DE OLIVEIRA H FAWWAD Facility:[facility] Start: 01-22-2022 End: 01-23-2022 ambulatory DE OLIVEIRA H FAWWAD Facility:[facility] Start: 01-18-2022 End: 01-19-[address] Facility:[facility] Start: 01-09-2022 End: 01-09-2022 ambulatory MD Shaikh Day Work Phone: [facility] Work Phone: Start: 01-09-2022 End: 01-09-2022 Discharged Recurring MD Shaikh Day Work Phone: [facility]-Speech Therapy [address] Start: 01-02-2022 End: 01-03-2022 ambulatory DE OLIVEIRA H FAWWAD Facility:[facility]1 Start: 12-07-2021 End: 12-08-2021 ambulatory DE OLIVEIRA H FAWWAD Facility:[facility] Start: 11-27-2021 End: 11-28-2021 ambulatory DE OLIVEIRA H FAWWAD Facility:[facility] Start: 11-26-2021 End: 11-26-2021 ambulatory DE OLIVEIRA H FAWWAD Facility:[facility] Start: 11-24-2021 End: 11-24-2021 Emergency department patient visit 837 NO [facility]ILY PHYSICIAN Facility:[id number] Start: 11-21-2021 End: 11-22-2021 Evaluation and management of inpatient MD Shaikh Day Work Phone: [facility] Start: 11-14-2021 Registered Recurring MD Shaikh Day Work Phone: [facility]-Speech Therapy [address] Start: 10-31-2021 End: 10-31-2021 ambulatory Denver Juarez Other [place] Other Start: 10-31-2021 Telephone encounter Denver Chanel [facility] [employer] Start: 10-24-2021 End: 10-25-2021 ambulatory SHAIKH Be DAY Facility:[facility] Start: 10-16-2021 End: 10-18-2021 Evaluation and management of inpatient SHAIKH Be DAY Facility:[facility]1 Start: 09-27-2021 End: 09-27-2021 ambulatory Denver Juarez Other [place] Other Start: 09-27-2021 Office outpatient visit 15 minutes Denver Juarez [facility] Start: 09-22-2021 End: 09-22-2021 ambulatory Ilda Das Other [place] Other Start: 09-22-2021 Office outpatient visit 15 minutes Ilda Das [facility] Start: 09-20-2021 End: 09-20-2021 ambulatory Susie Arrington Other [place] Other Start: 09-20-2021 Office outpatient visit 10 minutes Susie Arrington [facility] Start: 09-02-2021 End: 09-02-2021 ambulatory SHAIKH Be DAY Facility:[facility]1 Start: 08-31-2021 End: 08-31-2021 Patient encounter procedure MD Shaikh Day Work Phone: [facility]-Ultrasound [place] [facility] Start: 08-29-2021 Registered Recurring MD Shaikh Day Work Phone: [facility]-Speech Therapy [address] Start: 08-24-2021 ambulatory LIZ ATWOODCKER Facility :[facility]1 Start: 08-02-2021 End: 08-02-2021 ambulatory Susie Arrington Other [place] Other Start: 08-02-2021 End: 08-02-2021 Patient encounter procedure Susiejennifer Arrington [facility] Start: 07-29-2021 End: 07-29-2021 ambulatory SHAIKH Be DAY Facility:[facility] Start: 07-12-2021 End: 07-12-2021 ambulatory Susie Arrington Other [place] Other Start: 07-12-2021 Office outpatient visit 15 minutes Suseijennifer Arrington [facility] Start: 07-12-2021 End: 07-12-2021 Patient encounter procedure MD Shaikh Day Work Phone: [facility]-XRay [facility] Start: 06-15-2021 End: 06-15-2021 Discharged Recurring MD Shaikh Day Work Phone: [facility]-Educational Program Director [address] Start: 05-31-2021 End: 05-31-2021 ambulatory Susie Calvchetan Other [place] Other Start: 05-31-2021 Postop follow up vis it related to original px Susie Calvey [facility] Start: 05-08-2021 End: 05-08-2021 ambulatory SHAIKH Be DAY Facility:[facility]1 Start: 05-03-2021 End: 05-03-2021 ambulatory Susiejennifer Arrington Other [place] Other Start: 05-03-2021 Postop follow up vis it related to original px Susie Arrington [facility] Start: 03-30-2021 End: 03-31-2021 ambulatory SHAIKH Be DAY Facility: Start: 03-02-2021 End: 03-02-2021 ambulatory Denver Millernorah Other [place] Other Start: 03-02-2021 Office outpatient visit 15 minutes Denver Juarez [facility] Vascular Surgery Start: 12-01-2020 Office outpatient visit 25 minutes Denver Juarez [facility] Vascular Surgery Start: 11-10-2020 Office outpatient visit 15 minutes Denver Larry [facility] Vascular Surgery Procedures Date Procedure Procedure Detail [...] AM EST Office Visit [facility] [address] [place] [phone] Alan Elmore MD [address] [place] [address], [address] [place] [address] [facility] Start: 10-12-2022 COVID-19 Vaccine ( season) COVID-19 Vaccine () [facility] Start: 03-02-2022 Bacteria identified in Urine by Culture Urine Culture [facility] Start: 11-22-2021 Comprehensive metabolic 2000 panel - Serum or Plasma [facility] Start: 11-22-2021 Magnesium measurement [facility] Start: 11-22-2021 End: 11-22-2021 [facility] Start: 11-21-2021 Patient referral to dietitian [facility] Start: 11-21-2021 Referral to sports management professor [facility] Start: 11-21-2021 Hospital admission [facility] Start: 11-21-2021 Physical therapy procedure [facility] Start: 11-21-2021 Referral to occupational therapist [facility] Start: 11-21-2021 [facility] Start: 08-31-2021 Doppler ultrasonography of bilateral carotid arteries US carotid doppler BI [facility] Start: 08-31-2021 US.doppler Carotid arteries - bilateral [facility] Work Phone: Start: 2013 Fall Risk Screening [...] Center Bacteria identified in Blood by Culture [facility] Bacteria identified in Urine by Culture [facility] Blood culture for bacteria, including anaerobic screen Blood Culture [facility] Patient Education Bradycardia (DC) [facility] Work Phone: Patient referral [facility] Work Phone: Urine culture Urine Culture [facility] Immunizations Immunization Date Immunization Notes Care Provider Fa cility 06-11-2020 COVID-19 Ad26.COV2.S (Clarence) MD Shaikh Day Work Phone: [facility] Payers Date Payer Category Payer Medicare [employer] MEDICARE [employer] [id number] 2018-Present [phone] [address] [place] [address] [id number] 2008 Unknown [id number] 1959 Medicare [id number] 1959 Self-pay [id number] 1948 Unknown [id number] 2.840.1.962676.3.579.2.159 1948 Unknown [id number] 2..840.1.134143.3.579.2.593 1948 Unknown [id number] 2.16.840.1.640831.3.579.2.593 1948 Unknown [id number] 2.16.840.1.912861.3.579.2.593 1948 Unknown [id number] 2.16840.1.656694.3.579.2.593 1948 Unknown [id number] 2.16.840.1.471267.3.579.2.593 1948 Unknown [id number] 2.16.840.1.519126.3.579.2.593 1948 Unknown [id number] 2.16.840.1.720122.3.579.2.593 1948 Unknown [id number] 2.16.840.1.422901.3.579.2.593 1948 Unknown [id number] 2.16.840.1.693727.3.579.2.593 1948 Unknown [id number] 2.16.840.1.499796.3.579.2.593 1948 Unknown [id number] 2.16840.1.354836.3.579.2.593 1948 Unknown [id number] 2.16840.1.584807.3.579.2.593 1948 Unknown [id number] 2.16840.1.859402.3.579.2.593 1948 Unknown [id number] 2.16840.1.328235.3.579.2.593 1948 Unknown [id number] 2.16840.1.039824.3.579.2.593 1948 Unknown [id number] 2.16840.1.252373.3.579.2.593 1948 Unknown [id number] 2.16.840.1.297137.3.579.2.593 1948 Unknown [id number] 2.16.840.1.084670.3.579.2.593 1948 Unknown [id number] 2.16.840.1.972612.3.579.2.1286 1948 Unknown [id number] 2.16.840.1.793994.3.579.2.1259 Medicare Medicare [id number] Medicare Medicare [id number] Unknown [id number] 2.16.840.1.313447.3.579.2.531 Unknown [id number] 2.16.840.1.051624.3.579.2.531 Unknown [id number] 2.16.840.1.876043.3.579.2.531 Social History Date Type Detail Facility Start: 04-05-2018 End: 02-23-2020 [facility] Start: 07-22-2018 End: 03-31-2021 Tobacco smoking status NHIS Ex-smoker (finding) [facility] Start: 1950 Sex Assigned At Female F [facility] History of tobacco use Current smoker Pro [facility] History of tobacco use Cigarette Smoker P [employer] Start: 07-22-2018 End: 02-23-2020 Cigarettes smoked current (pack per day) - Reported 1 [employer] Start: 07-22-2018 Tobacco use and exposure Smoke less tobacco non-user [facility] Start: 08-25-2018 Alcohol intake Current non-dr vein pumper of alcohol (finding) [facility] Frequency of Alcohol Consumption Never [facility] Start: 1950 Sex Assigned At Not on file P [employer] [facility] Medical Equipment Procedure Code Equipment Code Equipment Origin al Text Equipment Identifier Dates ORIF, fracture, wrist Orthopaedic fixation plate, non-bioabsorbable, sterile ()[id number] FDA Start: 03-31-2021 ORIF, fracture, wrist Orthopaedic bone screw, non-bioabsorbable, non-sterile ()[id number] FDA Start: 03-31-2021 ORIF, fracture, wrist Orthopaedic bone screw, non-bioabsorbable, non-sterile ()[id number] FDA Start: 03-31-2021 ORIF, fracture, wrist Orthopaedic bone screw, non-bioabsorbable, non-sterile ()[id number] FDA Start: 03-31-2021 ORIF, fracture, wrist Orthopaedic bone screw, non-bioabsorbable, non-sterile ()[id number] FDA Start: 03-31-2021 Endarterectomy, carotid Cardiovascular patch, animal-derived ()[id number] FDA Start: 04-06-2020 Sys Crd Rvl Linq Rpl [id number] - [id number] - [id number] Start: 04-08-2018 Goals Date Patient Goal [...] Facility 11-22-2021 Functional status Patient at Baseline [facility] Work Phone: 11-21-2021 Functional status Patient Not at Baseline [facility] Work Phone: Mental Status Date Assessment Result Facility 11-22-2021 Cognitive function Cognitive Sta tus Patient at Baseline [facility] Work Phone: 11-21-2021 Cognitive function Cognitive Sta tus Patient Not at Baseline [facility] Work Phone: Clinical Notes 11-10-2020 to [...] for diuresis and repeat BMP next week [facility] 02-13-2023 Note Lipid abnormalities are well controlled, continue crestor [facility] 02-13-2023 Note Hypertension is elev ated, currently will increase lasix to daily and increase potassium, Repeat BMP in 1 week Continue norvasc 2.5 mg Renal function normal [facility] 02-13-2023 Note Coronary artery dise ase is stable Continue GDMT- ASA, crestor and toprol continue risk factor modifications- heart healthy diet, regular exercise as tolerated and continue all medications. [facility] 02-13-2023 Note F/U with neuro [facility] 02-13-2023 Note UTP CARDIOLOGY PROGR ESS [...] stroke on 10/20/2022 and was seen in [facility]. She is having trouble getting ahold [...] to get appointment with Neuro/stroke service at [facility] and with her PCP DR Posey. [...] Affect: Mood nor (more content not included)... [facility] 02-13-2023 Note Patient here for 6 m o follow up CAD, hypertension, and carotid artery stenosis. She states she tries to take her lasix every other day. C/o pissing herself at night and smelly urine . Says she had another stroke on 10/20/2022 and was seen in [facility] ED. She is having trouble getting ahold [...] All other systems reviewed and are negative. [facility] 01-24-2023 Miscellaneous Notes Patient called to see if we received paperwork that was sent from her PCP in July. Caller states she has had a new stroke and needs to be seen. Patient states she has been having headaches and dizziness. Please advise [phone] Patient last seen in 2018. No paperwork has been completed or received. Please see where patient had recent stroke and gather records. Called pt. She state Dr. Hartley sent the paperwork back in November 2022. MRI was done at [place] very recently. Legal Coordinator will be requesting image and any office visit notes related to neurology. Pt seems to be very frustrated by the lack of communication. Legal Coordinator informed that we will reach out to [place] to gather as much information. Legal Coordinator must note that the quality of the call was very poor and it was hard to communicate with the patient. Asked if she could move to somewhere with a better center receptionist, but even then the quality did not improve. At the end of the call, she showed more frustration which play writer could not understand and she hung up. Called [facility] radiology to confirm if she has gotten any MRI in November. It was ordered by one of the hospitalists. A spa technician could not confirm who ordered the [...] been having headaches and dizziness. Please advise [phone] [facility] 01-24-2023 Telephone encounter Note Patient last seen in 2019. No paperwork has been completed or received. Please see where patient had recent stroke and gather records. [facility] 01-24-2023 Telephone encounter Note Called pt. She state Dr. Hartley sent the paperwork back in November 2022. MRI was done at [place] very recently. Legal Coordinator will be requesting image and any office visit notes related to neurology. Pt seems to be very frustrated by the lack of communication. Legal Coordinator informed that we will reach out to [place] to gather as much information. Legal Coordinator must note that the quality of the call was very poor and it was hard to communicate with the patient. Asked if she could move to somewhere with a better center receptionist, but even then the quality did not improve. At the end of the call, she showed more frustration which play writer could not understand and she hung up. [facility] 01-24-2023 Telephone encounter Note Called [facility] radiology to confirm if she has gotten any MRI in November. It was ordered by one of the hospitalists. A spa technician could not confirm who ordered the imaging, but confirmed that she pushed over the imaging through PACs and reports via fax. Currently waiting for response. [facility] 01-24-2023 Telephone encounter Note Faxed request for hospitalization records on nov 2022. Currently waiting for response. [facility] 01-24-2023 Telephone encounter Note Called and scheduled an appointment on 03/12/23 at 10:00 AM [facility] 10-16-2022 Evaluation note Encounter Date Diagnosis Assessment [...] with chronic urinary symptoms. Patient verbalized understanding. [place] Other 07-18-2023 NoteUT Cardiology [facility] Subjective Ozzie Gifford is a [...] , Disp: , Rfl: (more content not included)...[facility]02-22-2023 Evaluation note* Encounter Date Diagnosis Assessment Notes [...] 1 year with repeat studies for surveillance. [facility] Other 01-23-2023 NoteHeart rate stable- 69 bpm Currently remains on toprol 25 mg daily. Denied lightheadedness/dizziness or syncopeUn[facility] 03-05-2022 NoteF/U with vascular surgery for monitoringUnMer[facility]01-23-2023 NoteWill start imdur 30 mg daily, d/w pt about headache as side effect and this should resolve after some time of taking imdur- if H/a does not resolve then we will stop medication. D/w pt that this may lower her b/p and to call office for any concerns.[facility]01-23-2023 NoteEvaluated by Vein specialist- Dr Walsh, Dr Juarez- vascular surgery Recommended lymphedema clinic.[facility]01-23-2023 Note UTP CARDIOLOGY PROGRESS NOTE HPI: Ozzie [...] not to see her vascular surgeon in [place] yet, to see the vein specialist first. [...] syncope RTC 3-6 months or earlier if neededUnMercy Health [facility] Center01-23-2023 NotePatient here for follow up echo. She's down 8# from apt last month. She had B/L LE venous reflux study 2 weeks ago, and states that physician told me it was my heart . She is referring to her LE edema. She said PCP advised her not to see her vascular surgeon in [place] yet, to see the vein specialist first. Review of Systems Constitutional: Positive for weight loss. Cardiovascular: Positive for leg swelling. Skin: Positive for color change. All other systems reviewed and are negative.[facility] 03-05-2022 Notecontinue crestor 10 mgUnMercy Health [facility] 03-05-2022 NoteHypertension is 144/86- at home she states b/p is typicaly 130/80 or less Will add imdur to regime for angina Continue toprol, lasixUnMercy Health [facility] Center01-23-2023 NoteContinue risk factor modifications- heart healthy diet, regular exercise as tolerated and continue all medications. Cpntinue GDMT- ASA, crestor, toprol, will start imdur.[facility]10-18-2022 NoteED Procedure Charges Entered On: 11/28/2021 17:45 EDT Performed On: 11/28/2021 17:44 EDT by Heena Crawford [employer] ([id number]) Sim Rep Sca to 2.5 [id number] : 1 Heena Crawford - 11/28/2021 17:44 [facility]10-14-2022 NoteED Nursing Discharge Summary Entered On: 11/24/2021 17:29 EDT Performed On: 11/24/2021 17:29 EDT by Jennifer Mccarthy RN NC Information [id number] ED IV's : No IV ED IV Site Assessment : No IV ED Vitals Completed : Yes ED Final Assessment Completed : Yes ED Progress Note Completed : Yes Complete all PRN/Pain response forms? : Yes ED Disassociate Patient from Monitor : N/A Updated Depart Time : Yes ED Belongings sent w patient [id number] : Not applicable Jennifer Mccarthy RN - [...] Jennifer Mccarthy RN - 11/24/2021 17:29 EDT [facility]10-14-2022 NotePROCEDURE: CT CHEST WITHOUT IV CONTRAST HISTORY: WHAT SYMPTOMS ARE YOU EXPERIENCING? - PT FELL AND HIT HEAD, PAIN, HX OF STROKE 2019, SOB, CHEST PAIN PAIN COMPARISON: None TECHNIQUE: Multiple contiguous axial CT images of the chest were obtained without the administration of intravenous contrast. Sagittal and coronal reconstructions were performed. All CT scans at [facility] use dose modulation, iterative reconstruction, and/or weight [...] in diameter. See below for follow-up recommendations. [facility] MANDATED QUALITY DATA - FOLLOW-UP IMAGING [...] By: ISMAEL AGUILAR MD Signed Out: 11/24/21 14:28:[address] [place], [place] 4790910-12-2022 Consult note Author Shavon Leos [facility] November 22, 2021 11:54am Note Date/Time November 22, 2021 1 1:45am [facility] [address] [place] [address] Cardiology Consult Note Signed Patient: Ozzie Gifford MR#: [id number] : 1950 Acct:[id number] Age/Sex: 71 / F Adm Date: 2 Loc: Room: [address] [place] [address] Type: ADM IN Attending Dr: Anna Valladares [...] past she underwent work-up by cardiology in [place]. She did undergo an implantable loop recorder [...] of appendectomy History of cardiac catheterization 2020 [facility] History of knee replacement right knee [...] x10E3/uL Lymph # (Auto) 1.2 (1.00-4.8) x10E3/uL [place] # (Auto) 0.4 (0.0-0.8) x10E3/uL Eos # [...] ,000 ml @ 100 mls/hr IV .Q10H [facility] Rx#:[id number] Oral 250 / 500 450 / 450 [...] implantable loop recorder had seen cardiology in [place] Code(s): R00.1 - Bradycardia, unspecified (2) AMS [...] continue his long-term follow-up with his primary sports management professor in [place] Documented By: Shavon Leos MD 11/22/21 1143 Signed By: <Electronically signed by MD Shavon Leos> 11/22/21 1154 [facility] Work Phone: [phone]) 455-601610-12-2022 Progress note Author Anna Valladares [facility] November 22, 2021 8:17am Note Date/Time November 21, 2021 1 2:10pm [facility] [address] [place] [address] Hospitalist Progress Note Signed Patient: Ozzie Gifford MR#: [id number] : 1950 Acct:[id number] Age/Sex: 71 / F Adm Date: 2 Loc: 3T Room: [address] [place] [address] Type: ADM IN Attending Dr: Anna Valladares MD Copies to: ~ Date of Service: 11/21/2021 Subjective Subjective Narrative: Patient seen and examined. cartpearl, currently still roomed in down in ER awaiting nursing floor availability. She offers no complaint. Keeps talkingof her daughter in [place] dying from cancer currently. thinks this is [...] signed by Anna Valladares MD> 11/22/21 0817 [facility] Work Phone: 1(591) 251-619910-11-2022 History and physical note Author Ashleigh Rashid [facility] November 21, 2021 6:39am Note Date/Time November 21, 2021 6 :39am [facility] [address] [place] [address] Hospitalist H&P Signed Patient: Ozzie Gifford MR#: [id number] : 1950 Acct:[id number] Age/Sex: 71 / F Adm Date: 2 Loc: ER Room: Type: [facility] ER Attending Dr: Copies to: MD [...] of appendectomy History of cardiac catheterization 2020 [facility] History of knee replacement right knee [...] % (Auto) 20.4 % (.) 11/21/21 04:12 [place] % (Auto) 9.9 % (.) 11/21/21 04:12 Eos % (Auto) 3.7 % (.) 11/21/21 04:12 Baso % (Auto) 0.8 % (.) 11/21/21 04:12 Neut # (Auto) 3.5 x10E3/uL (1.8-7.7) 11/21/21 04:12 Lymph # (Auto) 1.1 x10E3/uL (1.00-4.8) 11/21/21 04:12 [place] # (Auto) 0.5 x10E3/uL (0.0-0.8) 11/21/21 04:12 [...] pH 5.5 (5.0-9.0) 11/21/21 04:20 Ur Specific [place] 1.010 (1.001-1.030) 11/21/21 04:20 Urine Protein Negative [...] Lovenox Documented By: Ashleigh Cruz MD 2 2174 Signed By: <Electronically signed by Ashleigh Cruz MD> 11/21/21 0639 [facility] Work Phone: 1(789) 917-834410-11-2022 History and physical note Author Ashleigh Rashid [facility] November 21, 2021 6:39am Note Date/Time November 21, 2021 6 :39am [facility] [address] [place] [address] Hospitalist H&P Signed Patient: Ozzie Gifford MR#: [id number] : 1950 Acct:[id number] Age/Sex: 71 / F Adm Date: 2 Loc: ER Room: Type: [facility] ER Attending Dr: Copies to: MD [...] of appendectomy History of cardiac catheterization 2020 [facility] History of knee replacement right knee [...] % (Auto) 20.4 % (.) 11/21/21 04:12 [place] % (Auto) 9.9 % (.) 11/21/21 04:12 Eos % (Auto) 3.7 % (.) 11/21/21 04:12 Baso % (Auto) 0.8 % (.) 11/21/21 04:12 Neut # (Auto) 3.5 x10E3/uL (1.8-7.7) 11/21/21 04:12 Lymph # (Auto) 1.1 x10E3/uL (1.00-4.8) 11/21/21 04:12 [place] # (Auto) 0.5 x10E3/uL (0.0-0.8) 11/21/21 04:12 [...] pH 5.5 (5.0-9.0) 11/21/21 04:20 Ur Specific [place] 1.010 (1.001-1.030) 11/21/21 04:20 Urine Protein Negative [...] signed by Ashleigh Cruz MD> 11/21/21 0639 [facility] Work Phone: 1(858) 793-285608-17-2022 Evaluation note* Encounter Date Diagnosis Assessment Notes [...] studies. All of her questions were addressed. [facility] Other 08-12-2022 Evaluation note* Encounter Date Diagnosis [...] Advised that patient may continue to use liua-cst-crkyzsl medications as needed for supportive treatment. Discussed that it could be possible that her nausea/vomiting/diar debbi could still be some residual side effects from the Paxlovid medication. At this time she should not take anymore that. She may follow-up with family doctor as scheduled on Saturday if she has more concerns. [facility] Other 08-10-2022 Evaluation note* Encounter Date Diagnosis [...] new questions or concerns at this time. [facility] Other 06-22-2022 Evaluation note* Encounter Date Diagnosis [...] Other specified postprocedural states (ICD-10 - Z98.890) [facility] Other 06-01-2022 Evaluation note* Encounter Date Diagnosis [...] Other specified postprocedural states (ICD-10 - Z98.890) [facility] Other 04-20-2022 Evaluation note* Encounter Date Diagnosis [...] Progress activity as tolerated. Call with questions/concerns. [facility] Other 03-23-2022 Evaluation note* Encounter Date Diagnosis Assessment Notes Treatment Notes Treatment Clinical Notes Apr, Other specified postprocedural states (ICD-10 - Z98.890) Radiographs reviewed with patient. Patient is progressing well from surgery. Continue occupational therapy exercises. Call with questions/concerns . Apr, Other fractures of lower end of left radius, subsequent encounter for closed fracture with routine healing (ICD-10 - S52.592D) [facility] Other 01-20-2022 Evaluation note* Encounter Date Diagnosis [...] or reaches 80% or she develops symptoms [facility] Other 10-21-2021 Evaluation note* Encounter Date Diagnosis [...] suggested ice and elevation with compression stockings. [facility] Other 09-30-2021 Evaluation note* Encounter Date Diagnosis [...] classify this is asymptomatic recurrent stenoses currently. [facility] Other Evaluation noteNo assessment information available [facility] Work Phone: Evaluation noteNo InformationNort [place] Other Evaluation note* Diagnosis Onset Date Resolution Status JASEN (acute kidney injury) ac [place] AMS (altered mental status) acute Impaired mobility and activities of daily living acute Symptomatic bradycardia acut e [facility] Work Phone: Evaluation note* Diagnosis Onset Date Resolution Status JASEN (acute kidney injury) ac [place] AMS (altered mental status) acute Impaired mobility and activities of daily living acute Symptomatic bradycardia acut e H/O traumatic brain injury c hronic HLD (hyperlipidemia) chronic HTN, goal below 140/90 chron ic [facility] Work Phone: Hiskrwg general Narrative - Reported* Type Description Date [...] History childbirth Hospitalization History X2 strokes 2019 [facility] Other [facility] general Narrative - Reported* Type Description Date [...] History childbirth Hospitalization History X2 strokes 2018 [facility] Other Hospital Discharge instructions Additional Instructions Please call and schedule an appointment with your established Loading And Unloading Supervisor. We attempted to make this appointment for you but the office was currently unavailable.[facility] Work Phone: InstructionsNot on filedocumented in this encounter InVivioLink Summary Purpose Family History No Family History [...] and content) DATE CREATED AUTHOR 03/09/2020 [facility] DATE CREATED AUTHOR AUTHOR'S ORGANIZ ATION 12/03/2021 [facility] DATE CREATED AUTHOR AUTHOR'S ORGANIZ ATION 02/28/2022 [facility] DATE CREATED AUTHOR AUTHOR'S ORGANIZ ATION 01/22/2023 [facility] DATE CREATED AUTHOR AUTHOR'S ORGANIZ ATION 02/17/2023 [facility] DATE CREATED AUTHOR AUTHOR'S ORGANIZ ATION 02/21/2023 [facility] EPIC DATE CREATED AUTHOR AUTHOR'S ORGANIZ ATION 02/28/2023 [facility] REASON FOR VISIT (unrecogniz ed section [...] MD Other Provider Active Maddie Garcia , [facility] Other Provider Active Team Status: Inactive [...] Active Earline Harris APRN Attending Provider Active Neurophysiologist Relationship Specialty Start Date End Date Gerry Hartley MD [address] [place] [id number] PCP - General Family Medicine 04/07/18 Goals [...] BE BASED ON THE PRIMARY CLINICAL RECORDS. [employer] provides no warranty or guarantee of the accuracy or completeness of information in this document.
--- NOTE | 2023-03-01 11:42 | MR_ITS ---
The [address] [address] Patient Name: FITZ GIFFORD MRN: [id number] date: 1950 Sex: F Assigned Patient Location: [place] Current Patient Location: [place] Accession/Order Number: [id number] Exam Date: 03/01/2023 14:50 Report Date: 03/01/2023 15:43 At the request of: SHAIKH MILLIE Procedure: MR head/brain wo con EXAM: MR head/brain wo con HISTORY: CVA acute weakness, dizziness COMPARISON: CT angiogram head and neck 03/01/2023, CT head 03/01/2023. TECHNIQUE: Multiplanar multisequence MR imaging of the brain was performed without intravenous contrast. FINDINGS: Calvarium/skull base: No focal marrow replacing lesion suggestive of neoplasm. Orbits: Bilateral capitan grande band ocular lens replacements. Paranasal sinuses: Mild mucosal thickening of the maxillary sinuses. Brain: No restricted diffusion. . Remote left temporal lobe infarct. There is exvacuo dilatation of the posterior left lateral ventricle. Small remote infarct involving the right frontal fowler radiata white matter and right caudate head. Moderate T2 FLAIR signal hyperintensities involving the left greater than right supratentorial white matter with relative sparing of the central pontine white matter. No mass effect, hemorrhage, or hydrocephalus. Grossly normal flow-related signal in the major intracranial arteries and dural sinuses. MR/MR head/brain wo con IMPRESSION: 1. No acute ischemia. 2. Multifocal remote infarcts involving supratentorial brain with superimposed white matter change detailed above. Electronically authenticated by: SHANIA WASHINGTON Date: 03/01/2023 15:43
--- NOTE | 2023-03-01 12:00 | XR_ITS ---
The [place] [id number] Patient Name: FITZ GIFFORD MRN: [id number] date: 1950 Sex: F Assigned Patient Location: MS Current Patient Location: MS Accession/Order Number: [id number] Exam Date: 03/01/2023 15:45 Report Date: 03/01/2023 16:28 At the request of: SHAIKH MILLIE Procedure: XR lumbar spine 2-3V EXAMINATION: XR lumbar spine 2-3V, [id number] HISTORY: back pain COMPARISON: CT abdomen/pelvis 11/26/2021 FINDINGS: There are 5 nonrib-bearing lumbar-type vertebral bodies. No acute fracture or suspicious osseous lesion. Mild levoscoliosis of the lumbar spine. Grade 1 anterolisthesis of L4 on L5, similar. No traumatic spondylolisthesis. Mild lumbar spondylosis, similar. Severe bilateral multilevel facet arthropathy at the lower lumbar spine, likely similar. There is diffuse osseous demineralization. XR/XR lumbar spine 2-3V IMPRESSION: No acute fracture demonstrated. If there is clinical concern for radiographically occult fracture then recommend noncontrast CT of the lumbar spine for further evaluation. Electronically authenticated by: WARNER DOMINGUEZ Date: 03/01/2023 16:28
[2023-03-01] MEDS: OXYCODONE HCL 5 MG TABLET PO ×2 (12:41→19:36)
[2023-03-01] MEDS: ENOXAPARIN SODIUM 40 MG/0.4 ML SYRINGE SUBQ (12:41)
--- NOTE | 2023-03-01 14:35 | SWNOTE1 ---
SW met with pt to discuss dc needs. Pt lives at home with her and her son who has MRDD. Pt brought her cane with her, but she usually furniture walks at home. Pt denies having any needs at discharge. SW reviewed ARAIZA form with pt. She voiced understanding and had no questions. Pt signed form, original given to pt and copy placed on chart.
[2023-03-01] MEDS: BACLOFEN 10 MG TABLET 20 MG PO ×2 (14:42→21:07)
[2023-03-01] MEDS: POTASSIUM CHLORIDE 10 MEQ ER TABLET 40 MEQ PO (15:57)
[2023-03-01] MEDS: KETOROLAC TROMETHAMINE 30 MG/ML VIAL IVP (15:58)
[2023-03-01 16:41] LABS: Glucometer 82 mg/dL (74-106)
--- NOTE | 2023-03-01 17:04 | PM.HP ---
H&P: HPI History of Present Illness Chief complaint: STROKE SYMPTOMS RETURNING Narrative: 72 y o female with hx of CVA in the past with residual expressive aphasia was in her usual state of health, when she experienced sudden onset vertigo, unsteadiness associated with headache that felt different than her usual migraine headache. She also noted double vision with her symptoms. Her vertigo is positional, and resolves when she lays down. Patient has prior hx of intermittent peripheral vertigo and uses meclizine for it as needed. She went to her bed last night and came to [facility] earlier today for an outpatient ECHO where she was noted to have worsening of her baseline aphasia and was sent to ED for further evaluation. Stroke w/u including CTH - no acute stroke. CTA head/neck - no sig change from previous. Casew d/c stroke and recommended admission for stroke w/u. When I saw her, she was still complaining of RIVAS. I am her PCP and her speech is at baseline with no change noted today. She reports diplopia is now resolved. She is still experiencing RIVAS and positional vertigo. She also reports acute low back pain that started about a week ago when she bent to pick something up about a week ago that is radiating down to her RLE and has restricted her ability to bend due to pain. Denies urinary symptoms - just finished abx for UTI. Still has occipital headache and according to her it feels different from her migraine RIVAS. 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) HLD (hyperlipidemia) ?E78.5 - Hyperlipidemia, unspecified (ICD-10) H/O: CVA (cerebrovascular accident) ?Z86.73 - Personal history of transient ischemic attack (TIA), and cerebral 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 (ICD-10) 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 - Occlusion and stenosis of unspecified carotid artery (ICD-10) FH: cholecystectomy ?Z83.79 - Family history of other diseases of the digestive system (ICD-10) FH: bariatric surgery ?Z84.89 - Family history of other specified conditions (ICD-10) Surgical History H/O: hysterectomy ?Z90.710 - Acquired absence of both cervix and uterus (ICD-10) History of appendectomy ?Z90.49 - Acquired absence of other specified parts of digestive tract (ICD-10) H/O right knee surgery ?Z98.890 - Other specified postprocedural states (ICD-10) Family History Father Family history of CHF (congestive heart failure) Family history of cancer Brother Family history of CHF (congestive heart failure) Family history of myocardial infarction Daughter Family history of cancer Mother Family history of cancer Grandfather Family history of cancer Grandmother Family history of cancer Social History (Updated 03/01/23 @ 17:21 by Shaikh Barb MD) Within the past year, how often did you have a drink containing alcohol: never Score interpretation: A score less than 3 is consistent with normal alcohol consumption. Smoking status: Former smoker Non-prescribed substance use: denies use Highest level of school completed/degree received: high school graduate Do you think of yourself as: straight/heterosexual Gender Identity: female Meds Home Medications and Allergies Home Medications Medication Instructions Recorded Confirmed Type amlodipine 2.5 mg tablet 2.5 mg PO DAILY 10/20/22 03/01/23 History aspirin 81 mg chewable tablet 1 tab PO DAILY 10/20/22 03/01/23 History baclofen 20 mg tablet 20 mg PO TID 10/20/22 03/01/23 History clonazepam 0.5 mg tablet 0.5 mg PO BID 10/20/22 03/01/23 History ferrous sulfate 325 mg (65 mg 325 mg PO DAILY 10/20/22 03/01/23 History iron) tablet (FeroSul) furosemide 20 mg tablet 40 mg PO .every other day 10/20/22 03/01/23 History metoprolol succinate 25 mg 25 mg PO DAILY 10/20/22 03/01/23 History tablet,extended release 24 hr potassium chloride 10 mEq 10 meq PO DAILY 10/20/22 03/01/23 History capsule,extended release quetiapine 50 mg tablet 50 mg PO DAILY 10/20/22 03/01/23 History rosuvastatin 10 mg tablet 10 mg PO DAILY 10/20/22 03/01/23 History topiramate 50 mg tablet 50 mg PO DAILY 10/20/22 03/01/23 History Allergies Allergy/AdvReac Type Severity Reaction Status Date / Time Penicillins AdvReac Severe itch Verified 10/20/22 13:38 Exam Constitutional Vital Signs, click to edit/add: Last Vital Signs Temp 97.9 F 03/01/23 14:00 Pulse 58 L 03/01/23 14:00 Resp 18 03/01/23 14:00 BP 102/58 03/01/23 14:00 Pulse Ox 95 03/01/23 14:00 O2 Del Method Room Air 03/01/23 16:22 Documenting provider has reviewed patient's vital signs: yes Common normals: no apparent distress and oriented x3 General appearance: cooperative HENMT Common normals: normocephalic and head/scalp atraumatic Head and scalp: normocephalic and atraumatic Eye Common normals: conjunctivae normal and no scleral icterus Conjunctiva: conjunctiva(e) normal Respiratory Common normals: normal respiratory effort and clear to auscultation bilaterally Effort & inspection: able to speak in complete sentences Auscultation: clear to auscultation bilaterally Cardio Common normals: regular rate, S1 normal heart sound and S2 normal heart sound Rate: regular rate Heart sounds: S1 normal and S2 normal GI Common normals: Normal to inspection, nondistended, normoactive bowel sounds present, soft to palpation, non-tender and no hepatosplenomegaly Palpation: soft and no hepatosplenomegaly Extremity Common normals: no clubbing, cyanosis or edema Neuro Common normals: oriented x3, moves all extremities and no sensory deficits noted Other: Negative cerebellar sign, expressive aphasia noted that is at baseline. Psych Common normals: mental status grossly normal, denies hallucinations, denies homicidal ideation and denies suicidal ideation Results Labs Labs: Short CBC 03/01/23 Range/Units 09:00 WBC 9.3 (4.0-11.0) 10^3/uL Hgb 14.3 (12.0-16.0) g/dL Hct 43.6 (36.0-48.0) % Plt Count 214 (150-450) 10^3/uL BMP 03/01/23 09:00 Sodium 144 Potassium 3.1 L Chloride 105 Carbon Dioxide 31.4 BUN 20.0 H Creatinine 0.81 Glucose 85 Calcium 8.6 Liver Function 03/01/23 Range/Units 09:00 Total Bilirubin 0.8 (0.2-1.0) mg/dL AST 19 (15-37) U/L ALT 34 (14-59) U/L Alkaline Phosphatase 95 (46-116) U/L Albumin 3.2 L (3.4-5.0) g/dL Assessment and Plan Assessment and Plan (1) TIA (transient ischemic attack): Assessment and Plan: Presented with acute onset vertigo (positional) associated with headache and diplopia last evening. Earlier today, noted to have worsened dysarthria and aphasia from baseline. Admitted for stroke w/u MRI brain - no evidence of acute CVA. She was still complaining of vertigo and headache. No acute intracranial pathology. on ASA, Statin. 2D ECHO performed as outpatient. Result pending. Tele stroke consulted. No sig stenosis/thrombosis on CTA head/neck c/w tele monitoring. No prior hx of Afib (2) Migraine with aura: Assessment and Plan: Hx of migraine RIVAS, on topamax for migraine prevention and usually well controlled. Reports occipital RIVAS, associated diplopia and vertigo. It is entirely possible that her presentation could be a neurological manifestation of migraine RIVAS. Diplopia is resolved already. Trial of Toradol IV. 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 Has residual dysarthria, expressive and receptive aphasia from prior CVA. (4) Vertigo: Assessment and Plan: Acute onset last evening, positional in nature. Improved from last night. She has hx of intermittent vertigo ever since she had CVA previously. Her symptoms wax and wane. Uses meclizine as needed. Order meclizine for her while she is here. She denies tinnitus, changes in hearing. She has no cerebellar signs, nystagmus. PT/OT eval and rx. (5) Back pain with radiculopathy: Assessment and Plan: New, for one week. Right sided radiculopathy. XR ordered. No injury, fall or previous back surgery. PT/OT eval. Conservative care for now. (6) HTN (hypertension): Assessment and Plan: ELevated on presentation. Now better. C/w home medications. Qualifiers: Hypertension type: primary hypertension Qualified Code(s): I10 - Essential (primary) hypertension (7) H/O: CVA (cerebrovascular accident): Assessment and Plan: Hx of prior CVA. on ASA, statin. Was previously on plavix but that was stopped after an episode of GI bleeding. (8) HLD (hyperlipidemia): Assessment and Plan: C/w statin. Check Lipid panel (9) Carotid arterial disease: Assessment and Plan: on ASA, statin. No sig stenosis, thrombosis in internal carotids. (10) Insomnia: Assessment and Plan: uses seroquel qhs.
[2023-03-01 18:20] LABS: Cholesterol 127 mg/dL (<=200); Estimated Average Glucose 103 mg/dL; Glycohemoglobin A1C 5.2 % (4.5-6.2); HDL Cholesterol 63 mg/dL (40-60); Triglycerides 119 mg/dL (<=150); VLDL CHOLESTEROL 23.8 mg/dL
[2023-03-01] MEDS: CLONAZEPAM 0.5 MG TABLET PO (21:06)
[2023-03-01] MEDS: ATORVASTATIN CALCIUM 40 MG TABLET PO (21:06)
[2023-03-01 21:12] LABS: Glucometer 95 mg/dL (74-106)
[2023-03-02] VITALS (10 sets, daily range): BP systolic 117–133; BP diastolic 64–72; PULSE 55–79; RESP 16–18; TEMP 36.7; O2SAT 92–100
--- NOTE | 2023-03-02 02:01 | PC.NURSE ---
Standby assist while patient ambulated to bathroom. Ambulated well, no deficits or weakness noted. Patient had 2 pullups on. When questioned she stated I am just afraid I am going to pee the bed Education provided that just one would be enough absorption and it is better for vaginal health to air out . She stated I am more comfortable this way
[2023-03-02] MEDS: BACLOFEN 10 MG TABLET 20 MG PO (05:41)
[2023-03-02 05:46] LABS: Basophils Percent Auto 0.6 % (0.2-2.0); Eosinophils Absolute Auto 0.3 10^3/uL (0.0-0.7); Eosinophils Percent Auto 4.1 % (0.9-7.0); Hematocrit 37.6 % (36.0-48.0); Hemoglobin 12.4 g/dL (12.0-16.0); Immature Granulocytes Abs Auto 0.06 10^3/uL (0.00-0.03); Immature Granulocytes Pct Auto 0.9 % (0.0-0.5); Lymphocytes Absolute Auto 2.1 10^3/uL (1.2-3.8); Lymphocytes Percent Auto 31.6 % (20.5-60.0); Mean Corpuscular Hemoglobin 29.5 pg (26.7-34.0); Mean Corpuscular Volume 89.3 fL (81.0-99.0); Mean Platelet Volume 10.4 fL (9.5-13.5); Monocytes Absolute Auto 0.5 10^3/uL (0.3-0.8); Monocytes Percent Auto 7.7 % (1.7-12.0); Neutrophils Absolute Auto 3.6 10^3/uL (1.4-6.5); Neutrophils Percent Auto 55.1 % (43.0-75.0); Platelet Count 205 10^3/uL (150-450); Red Blood Count 4.21 10^6/uL (4.20-5.40); Red Cell Distribution Width 12.9 % (11.0-15.0); White Blood Count 6.6 10^3/uL (4.0-11.0)
[2023-03-02 06:04] LABS: Alanine Aminotransferase 27 U/L (14-59); Albumin Globulin Ratio 0.9; Albumin Level 2.5 g/dL (3.4-5.0); Alkaline Phosphatase 74 U/L (46-116); Anion Gap 11.1; Aspartate Amino Transferase 16 U/L (15-37); BUN Creatinine Ratio 31.2; Bilirubin Total 0.6 mg/dL (0.2-1.0); Calcium 8.5 mg/dL (8.5-10.1); Carbon Dioxide 28.7 mmol/L (21.0-32.0); Chloride 110 mmol/L (98-107); Estimated GFR (African America >60 (>=60); Estimated GFR (Non-African Ame >60 (>=60); Globulin 2.7 g/dL; Glucose 86 mg/dL (74-106); Potassium 3.8 mmol/L (3.5-5.1); Sodium 146 mmol/L (136-145); Total Protein 5.2 g/dL (6.4-8.2)
[2023-03-02] MEDS: OXYCODONE HCL 5 MG TABLET PO (06:27)
[2023-03-02] MEDS: TOPIRAMATE 25 MG TABLET 50 MG PO (08:37)
[2023-03-02] MEDS: ENOXAPARIN SODIUM 40 MG/0.4 ML SYRINGE SUBQ (08:37)
[2023-03-02] MEDS: FUROSEMIDE 20 MG TABLET 40 MG PO (08:37)
[2023-03-02] MEDS: CLONAZEPAM 0.5 MG TABLET PO (08:38)
[2023-03-02] MEDS: QUETIAPINE FUMARATE 25 MG TABLET 50 MG PO (08:38)
[2023-03-02] MEDS: POTASSIUM CHLORIDE 10 MEQ ER TABLET PO (08:38)
[2023-03-02] MEDS: ASPIRIN 81 MG TAB.CHEW PO (08:38)
[2023-03-02] MEDS: DOCUSATE SODIUM 100 MG CAPSULE PO (08:38)
[2023-03-02] MEDS: FERROUS SULFATE 325 MG TABLET PO (08:38)
[2023-03-02] MEDS: METOPROLOL SUCCINATE 25 MG TAB.ER.24H PO (08:39)
--- NOTE | 2023-03-02 11:01 | REH.PTDLY ---
Physical Therapy Daily Note PT Daily Note/Assess Start: 03/02/23 10:53 Freq: Status: Active Protocol: Document 03/02/23 10:53 SHAYNA (Rec: 03/02/23 11:01 SHAYNA [id number]) Physical Therapy Daily Note/Assessment Time In 09:15 Time Out 09:33 Subjective Pt willing to do therapy, awake and alert lying in bed. Therapeutic Activity Minutes (minutes) 3 Therapeutic Activity Units 0 Bed Mobility Ability Independent Chair Transfer Ability Modified Independent Therapeutic Activity Comments Pt does well with transfers, utilizes bed rail to sit up. Gait Training/Stairs Minutes (minutes) 14 Gait Training/Stairs Units 1 Ambulation Assistive Device Wheeled Walker Ambulation Distance (feet) 210 Ambulation Ability Standby Assistance,Minimum Assist Number of Steps Climbed (steps) 8 Stair Climbing Ability Contact Guard Assist Gait Comments Pt reports she does not use RW at home as she has 4 levels and stairs to do and MRDD son. Usually holds onto things in the house. Had pt use RW as she is unsteady without and takes very small steps to be cautious. Gait training with RW for 105 feet. Pt then performed stairs using R HR and 8 steps. Pt complains of dizziness. States this comes and goes. Denies wanting to sit down. Ambulates another 105 feet back to room [facility] for safety. Dizziness improves. Total Therapy Minutes 17 Total Physical Therapy Units 1 Daily Note Summary Pt does well with steps when using HR and step to pattern. Progressed gait distance today with some dizziness noted, but pt reports she is used to this. Pt would benefit from using an AD more often, however home is smaller and has 4 levels making it difficult.
[2023-03-02 11:24] LABS: Glucometer 69 mg/dL (74-106)
--- NOTE | 2023-03-02 11:59 | PC.NURSE ---
patient given nathalie crackers and 120 ml of oj until lunch arrives for a snack.
--- NOTE | 2023-03-02 12:19 | PM.DS1 ---
DS: Providers Provider Date of admission: 03/01/23 11:31 Primary care physician: Shaikh Barb MD Consults: 03/01/23 11:00 Consult to Telestroke Routine Reason for consultation: cva Has provider been notified: Yes 03/01/23 11:39 Occupational Therapy Eval and Treat Routine Reason for consultation: Ambulatory dysfunction/weakness Physical Therapy Eval and Treat Routine Reason for consultation: Ambulatory dysfunction/weakness 03/01/23 11:43 Consult to Telestroke Routine Reason for consultation: cva DS: Diagnosis Discharge Diagnosis (1) TIA (transient ischemic attack): (2) Migraine with aura: Qualifiers: Status migrainosus presence: without status migrainosus Intractability: not intractable Qualified Code(s): G43.109 - Migraine with aura, not intractable, without status migrainosus (3) Vertigo: (4) Carotid artery obstruction: (5) Aphasia following cerebrovascular accident (CVA): (6) HTN (hypertension): Qualifiers: Hypertension type: primary hypertension Qualified Code(s): I10 - Essential (primary) hypertension (7) HLD (hyperlipidemia): (8) Lumbar spondylosis: DS: Summary Hospital Course Hospital Course: Reason for admission: See ER note and H&P for details. 72 y/o female to ER with worsening speech. History of CVA and expressive aphasia. Night prior noticed worsening speech. Next day went for outpatient echo and directed to ER. By time ER speech at baseline. History of migraines and patient did c/o increased RIVAS. Stroke alert called and CT head without acute change. CTA head and neck showed blockage in carotids but no acute change. Discussed with tele-neurology and admitted. Hospital course: Resumed aspirin and statin along with other home medication. MRI brain showed old stroke but no acute change. Patient remained stable in hospital. No further deficits or speech problems. Neurology felt this may be related to migraine and not acute stroke. Recommend follow up as outpatient with vascular specialist. Discharged home in stable condition. Resume home medication as directed including aspirin and statin. Follow up with PCP in 1-2 weeks. Time Spent with Patient Time attestation: Total time spent providing and/or coordinating discharge services: Quality: Stroke Symptom Onset Unknown: No Exam Constitutional Vital Signs, click to edit/add: Last Vital Signs Temp 98.1 F 03/02/23 05:46 Pulse 78 03/02/23 12:12 Resp 16 03/02/23 08:24 BP 133/72 03/02/23 08:20 Pulse Ox 100 03/02/23 11:33 O2 Del Method Room Air 03/02/23 11:33 Documenting provider has reviewed patient's vital signs: yes Common normals: no apparent distress, oriented x3 and alert HENMT Common normals: normocephalic Eye Common normals: PERRL and EOMs intact bilaterally Respiratory Common normals: normal respiratory effort and clear to auscultation bilaterally Cardio Common normals: regular rate, regular rhythm, no gallops, no murmurs and no rub GI Common normals: Normal to inspection, nondistended, normoactive bowel sounds present and non-tender Extremity Common normals: no pedal edema DS: Data Data Completed and Pending Labs on day of discharge: Labs from last 24 hours 03/02/23 03/02/23 03/01/23 11:23 04:23 21:10 WBC 6.6 RBC 4.21 Hgb 12.4 Hct 37.6 MCV 89.3 MCH 29.5 MCHC 33.0 RDW 12.9 Plt Count 205 MPV 10.4 Neut % (Auto) 55.1 Lymph % (Auto) 31.6 [place] % (Auto) 7.7 Eos % (Auto) 4.1 Baso % (Auto) 0.6 Neut # (Auto) 3.6 Lymph # (Auto) 2.1 [place] # (Auto) 0.5 Eos # (Auto) 0.3 Baso # (Auto) 0.0 Abs Immat Gran (auto) 0.06 H Imm/Tot Granulo (auto) 0.9 H Sodium 146 H Potassium 3.8 Chloride 110 H Carbon Dioxide 28.7 Anion Gap 11.1 BUN 24.0 H Creatinine 0.77 Est GFR ( Amer) >60 Est GFR (Non-Af Amer) >60 BUN/Creatinine Ratio 31.2 Glucose 86 Estimat Average Glucose Hemoglobin A1c Calcium 8.5 Total Bilirubin 0.6 AST 16 ALT 27 Alkaline Phosphatase 74 Total Protein 5.2 L Albumin 2.5 L Globulin 2.7 Albumin/Globulin Ratio 0.9 Triglycerides Cholesterol LDL Cholesterol, Calc VLDL Cholesterol HDL Cholesterol Cholesterol/HDL Ratio POC Glucose 69 L 95 03/01/23 03/01/23 16:40 09:02 WBC RBC Hgb Hct MCV MCH MCHC RDW Plt Count MPV Neut % (Auto) Lymph % (Auto) [place] % (Auto) Eos % (Auto) Baso % (Auto) Neut # (Auto) Lymph # (Auto) [place] # (Auto) Eos # (Auto) Baso # (Auto) Abs Immat Gran (auto) Imm/Tot Granulo (auto) Sodium Potassium Chloride Carbon Dioxide Anion Gap BUN Creatinine Est GFR ( Amer) Est GFR (Non-Af Amer) BUN/Creatinine Ratio Glucose Estimat Average Glucose 103 Hemoglobin A1c 5.2 Calcium Total Bilirubin AST ALT Alkaline Phosphatase Total Protein Albumin Globulin Albumin/Globulin Ratio Triglycerides 119 Cholesterol 127 LDL Cholesterol, Calc 41.0 VLDL Cholesterol 23.8 HDL Cholesterol 63 H Cholesterol/HDL Ratio 2.0 POC Glucose 82 Discharge Plan Discharge Disposition: Home, Self-Care Condition: Fair Discharge Medications: Continued amlodipine 2.5 mg tablet 2.5 mg PO DAILY aspirin 81 mg tablet,chewable 1 tab PO DAILY baclofen 20 mg tablet 20 mg PO TID PRN (Reason: muscle spasm) clonazepam 0.5 mg tablet 0.5 mg PO BID ferrous sulfate [FeroSul] 325 mg (65 mg iron) tablet 325 mg PO DAILY metoprolol succinate 25 mg tablet extended release 24 hr 25 mg PO DAILY potassium chloride 10 mEq capsule, extended release 10 meq PO DAILY quetiapine 50 mg tablet 50 mg PO DAILY topiramate 50 mg tablet 50 mg PO DAILY furosemide 40 mg tablet 20 mg PO QDAY Patient Comments: CARDIOLOGY DECREASED HER DOSE 02/28/23 rosuvastatin 20 mg tablet 20 mg PO .QHS potassium chloride 10 mEq tablet,ER particles/crystals 10 meq PO QDAY Activity: resume usual activities as tolerated Diet: advance to your usual diet Forms: Portal Instructions
--- OUTSIDE RECORDS SUMMARY | 2023-03-04 08:46 | XMS_ITS | CCD ---
Author Name Unknown Address [address] [place] [address] Organization [facility] Care Team Providers [employer] Team Member Name Role Phone Denver Juarez Unavailable Susie [...] 0 MD Aneesh Zendejas Other Provider [phone] MD Shavon Leos Other Provider [phone] MD Brayan Ribera Other Provider CÉSAR Arenas Other Provider [phone] MD Shefali Garibay Other Provider MD Vannessa Nava Other Provider MD Alissa Young Other Provider Jose [facility] Maddie Westbrook Other Provider MD Anna Valladares Attending Provider NO FAMILY PHYSICIAN, 837 Primary Care Unavail able MIKE VIDES, - LUIS Attending Unavaila MD Eddy Swenson Primary Care Provider [phone] DO Rafiq Bahena Emergency Provider Al Colette Cruz MD [facility] Admit Provider MD Anna Valladares Attending Provider [phone] MD Gerry Hartley Primary Care Provider MD Eddy Day Attending Provider LIZ LANE Admitting Unavailable DAVID, LIZ Attending [...] FAWWAD, DE OLIVEIRA H Primary Care Unavailable AYNIV, DR RAMSAY Admitting Unavailable YANIV, DR RAMSAY [...] Unavailable RAYMUNDO, MEGHANN Consulting Unavailable FAWWAD, DE OLIEVIRA H Admitting Unavailable FAWWAD, DE OLIVEIRA H Attending Unavailable FAWWAD, DE OLIVEIRA H Primary Care Unavailable FAWWAD, DE OLIVEIRA H Consulting Unavailable MIRI BALTAZAR Consulting Unavailable FAWWAD, DE OLIVEIRA H Admitting Unavailable FAWWAD, DE OLIVEIRA H Attending Unavailable FAWWAD, DE OLIVEIRA H Primary Care Unavailable FAWWAD, DE OLIVEIRA H Consulting Unavailable Indra Lozada Consulting Unavailable FAWWAD, DE OLIEVIRA H Admitting Unavailable FAWWAD, DE OLIVEIRA H [...] Unavailable MD Eddy Day Primary Care Provider [phone] CÉSAR Harris Attending Provider Earline Harris Unavailable Kori Temple Unavailable Fanikolayd, De Oliveira Primary Care Unavailable Earline Harris Admitting Unavailable Earline Harris Attending Unavailable Denver Juarez Attending Unavailabl e Fawwad, De Oliveira Primary Care Unavailable Denver Juarez Admitting Unavailabl e Fawwad, De Oliveira Admitting Unavailable Fawvitaliyd, De Oliveira Primary Care Unavailable Barb, De Oliveira Attending Unavailable Gerry Hartley MD Primary Care Provider [phone] SHAIKH DAY Attending Unavailable NICOLAS CARRILLO Attending Unavailable MEGHANN FONSECA Attending Unavailable MEGHANN FONSECA Attending Unavailable GERRY HARTLEY Referring Unavailable GERRY HARTLEY Primary Care Unavailable GERRY HARTLEY Primary Care Unavailable GERRY HARTLEY Referring Unavailable GERRY HARTLEY Primary Care Unavailable GERRY HARTLEY Referring Unavailable NAEEM, GERRY Primary Care Unavailable Allergies Allergy Classification Reported Allergen(s) Allergy Type Date of Onset Reaction(s) Facility (14 sources) Penicillin G Drug Allergy Unknown [facility] Other (9 sources) Penicillins; 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: [Penicillins] Allergy to substance 8 [facility] (1 source) Penicillin Drug Allergy 3 [facility] Repository Medications Current Medications Medication Drug [...] Sulfate Discontinued 324 MG PO Twice daily 30 April 18, 2018 12:00am December 12, 2018 [...] 2021 3:44pm take 1 tablet by nemesio every twenty-four hours Vitamin B-12 1000 MCG [...] 12, 2018 9:29am take 1 capsule by [facility] every twenty-four hours Docusate Sodium 100 MG [...] daily Lisinopril-Hydrochlorothiazide Discontinued 1 TAB PO Daily April 18, [...] middle cerebral artery] Onset: 04-05-2018 04-11-2018 Chronic Acute cerebrovascular disease (1 source) Acute cerebrovascular disease Onset: 03-01-2023 Administrative/social admission (8 sources) Other reduced mobility; [...] disease (8 sources) Atherosclerotic heart disease of samish coronary artery without angina pectoris; 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: [Other [...] Resolved: 2 Episodic Other aftercare (1 source) retirement (current) use of aspirin; 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: [ASSISTED CURRENT USE OF ASPIRIN] Onset: 2 Episodic Other aftercare (1 source) Other director long term care (current) drug therapy; 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: [OTH HAY SORTER CURRENT DRUG THERAPY] Onset: 2 Episodic Other aftercare (1 source) Encounter for follow-up examination after completed treatment for conditions other than malignant neoplasm; 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: [ENC F/U EX AFTR CMPL TX NOT MAL SU] Onset: 2 Episodic Other aftercare (1 source) retirement (current) use of antithrombotics/antipl atelets; 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: [HAY SORTER 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/ANTIPLATL ETS] Onset: 2 Episodic Other circulatory [...] GO DE K TO [address] [facility] 37on 02-13-2023 37 Decrease amount of fluids your drinking to about 1.5 liters/day Take lasix 40 mg daily and increase potassium to 20 meq daily Have labs drawn in 1 week Call for appointment with neuro Normal [facility] Office Visiton 02-13-2023 Follow-up visit [id number] Ozzie Gifford 1950 F Date Provider Department Center 02/13/2023 MEGHANN NEGRETE CARD [facility] Family History Problem Relation Age of Onset Hypertension Mother Hypertension Father Heart attack Brother Family Status - Relation Status Age at Mother Father Brother Level of Service:88432 [place] OFFICE/OUTPATIENT ESTABLISHED MOD MDM [address] [facility] Urinalysis - AUTOMATEDon Appearance (U) cloudy [employer] Other Bilirubin Ql (U) Negative [employer] Other Color (U) yellow [facility] Other Glucose Ql (U) Negative [employer] Other Hemoglobin Ql (U) Negative [employer] Other Ketones Ql (U) Negative [employer] Other Leukocyte esterase Test strip Ql (U) Negative [facility] Other Nitrite Ql (U) Negative [employer] Other pH (U) 6.0 [pH] [facility] Other Protein Ql (U) Negative [employer] Other Specific gravity (U) [Rel density] 1.030 [facility] Other Urobilinogen (U) [Mass/Vol] 1.0 mg/dL [facility] Other Urinalysis - AUTOMATED No rth Kasenna Other Office Visiton 08-28-2022 Follow-up visit [id number] Ozzie Gifford 1950 F Date Provider Department Center 08/28/2022 NICOLAS MARCANO CARD [facility] Family History Problem Relation Age of Onset Hypertension Mother Hypertension Father Heart attack Brother Family Status - Relation Status Age at Mother Father Brother Level of Service:61086 [place] OFFICE/OUTPATIENT ESTABLISHED MOD MDM 30-39 MIN Reason for Visit and Comments: Follow-up [813097] - [address] [facility] US carotid doppler BIon 03-15 US carotid doppler BI [facility] [address] Ultrasound Report Signed Patient: zOzie Gifford MR#: [id number] : 1950 Acct:[id number] Age/Sex: 71 / F ADM Date: 04/04/22 Loc: [facility] Room: Type: [facility] Attending Dr: Denver Juarez MD Ordering [...] Denver Juarez MD04/04/2022 3:28 PM Dictation Location: [facility]-04 Tech: Selin Oglesby Transcribed By: SHYANN 04/04/22 1528 Dictated By: Denver Juarez MD 04/04/22 1528 Signed By: 04/04/22 1528 [facility] 37on 03-05-2022 37 Start Isosorbide/Imdur 30 mg daily in the morning- for chest pain Call office for any concerns, worsening chest pain, worsening headache, lightheadedness/dizzi ness. [facility] Office Visiton 03-05-2022 Follow-up visit [id number] Ozzie Gifford 1950 F Date Provider Department Center 03/05/2022 MEGHANN NEGRETE VANIA [facility] Family History Problem Relation Age of Onset Hypertension Mother Hypertension Father Heart attack Brother Family Status - Relation Status Age at Mother Father Brother Level of Service:55479 [place] OFFICE/OUTPATIENT ESTABLISHED MOD MDM 30-[address] [facility] Urine Cultureon 03-02-2022 Bacteria identified Cx Nom (U) Reason for Exam Dysuria Urine ORGANISM: Escherichia coli (O:ESCCOL) [place] Count 20,000 Aerobic QUINTIN Charge (NMIC56) ---- [...] RESISTANT TO ALL B-LACTAM DRUGS. PERFORMED BY: [address] [place] [address] PATHOLOGIST APARTMENT COORDINATOR YOCASTA BYRNE M.D. Normal [facility] Comment on above: Performed By: #### C UU #### [facility] [address] [id number] [facility] ECHOCARDIO M/2D COMPLETEon 0 02-21-2022 ECHOCARDIO M/2D COMPLETE Patient: OZZIE GIFFORD Exam Date: 02/21/2022 : 1950 Gender:F Ordering : MEGHANN FONSECA Admission #: [id number] Family : SHAIKH Korina DAY . Order #: [id number] CLICK HERE TO VIEW EXAM ECHOCARDIOGRAM REPORT [...] Doty M.D. on 02/22/2022 at 13:00 Normal [facility] VC COMP CONSULTATIONon 02-20 VC COMP CONSULTATION Patient: OZZIE GIFFORDDeonte Exam Date: 02/20/2022 : 1950 Gender:F Ordering : SHAIKH Korina DAY . Admission #: [id number] Family : Order #: [id number] CLICK HERE TO VIEW EXAM RADIOLOGY REPORT [...] her congestive heart disease up with her third loader in the next 2 weeks. The patient [...] Walsh MD on 02/20/2022 at 11:35 Normal [facility] VC VENOUS REFLUX IAN LMTon 0 02-20-2022 VC VENOUS REFLUX IAN LMT Patient: OZZIE GIFFORD Exam Date: 02/20/2022 : 1950 Gender:F Ordering : SHAIKH Korina Clemons Admission #: [id number] Family : DR NATACHA WALSH M.D. 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 [...] Walsh MD on 02/20/2022 at 10:30 Normal [facility] US JANETTE DOP LEG LTon 01-31- 22 US JANETTE DOP LEG LT INDICATION: [...] by: INDRA LOZADA Date: 2022-01-31 18:39 Normal [facility] BNPon 01-22-2022 Natriuretic peptide B (Bld) [Mass/Vol] 552.0 pg/mL Normal <=900.0 [facility] Comment on above: Performed By: #### E RUR #### [facility] [address] [place] [address] Dr. Grzegorz Wang CBC AUTO DIFFon 01-22-2022 BASO # 0.1 103/ul Normal 0.0-0.1 [facility] Comment on above: Performed By: #### C BC #### [facility] [address] [place] [address] Dr. Grzegorz Wang Basophils/100 WBC (Bld) 0.9 % Normal 0.2-2.0 [facility] Comment on above: Performed By: #### C BC #### [facility] [address] [place] [address] Dr. Grzegorz Wang EO # 0.3 103/ul Normal 0.0-0.7 [facility] Comment on above: Performed By: #### C BC #### [facility] [address] [place] [address] Dr. Grzegorz Wang Eosinophils/100 WBC (Bld) 5.5 % Normal 0.9-7.0 [facility] Comment on above: Performed By: #### C BC #### [facility] [address] [place] [address] Dr. Grzegorz Wang Erythrocyte distribution width (RBC) [Ratio] 13.7 % Normal 11.0-15.0 [facility] Comment on above: Performed By: #### C BC #### [facility] [address] [place] [address] Dr. Grzegorz Wang Hematocrit (Bld) [Volume fraction] 41.1 % Normal 36.0-48.0 [facility] Comment on above: Performed By: #### C BC #### [facility] [address] [place] [address] Dr. Grzegorz Wang Hemoglobin (Bld) [Mass/Vol] 13.4 g/dL Normal 12.0-16.0 [facility] Comment on above: Performed By: #### C BC #### [facility] [address] [place] [address] Dr. Grzegorz Wang IG # 0.01 10e3/ul Normal 0.00-0.03 [facility] Comment on above: Performed By: #### C BC #### [facility] [address] [place] [address] Dr. Grzegorz Wang IG % 0.2 % Normal 0.0-0.5 [facility] Comment on above: Performed By: #### C BC #### [facility] [address] [place] [address] Dr. Grzegorz Wang LYMPH # 1.8 103/ul Normal 1.2-3.8 [facility] Comment on above: Performed By: #### C BC #### [facility] [address] [place] [address] Dr. Grzegorz Wang Lymphocytes/100 WBC (Bld) 29.9 % Normal 20.5-60.0 [facility] Comment on above: Performed By: #### C BC #### [facility] [address] [place] [address] Dr. Grzegorz Wang MANUAL DIFF REQ NO Normal [facility] Comment on above: Performed By: #### C BC #### [facility] [address] [place] [address] Dr. Grzgeorz Wang MCH (RBC) [Entitic mass] 28.2 pg Normal 26.7-34.0 [facility] Comment on above: Performed By: #### C BC #### [facility] [address] [place] [address] Dr. Grzegorz Wang MCHC (RBC) [Mass/Vol] 32.6 g/dL Normal 29.9-35.2 [facility] Comment on above: Performed By: #### C BC #### [facility] [address] [place] [address] Dr. Grzegorz Wang MCV (RBC) [Entitic vol] 86.5 fL Normal 81.0-99.0 [facility] Comment on above: Performed By: #### C BC #### [facility] [address] [place] [address] Dr. Grzegorz Wang MONO # 0.7 103/ul Normal 0.3-0.8 [facility] Comment on above: Performed By: #### C BC #### [facility] [address] [place] [address] Dr. Grzegorz Wang Monocytes/100 WBC (Bld) 11.1 % Normal 1.7-12.0 [facility] Comment on above: Performed By: #### C BC #### [facility] [address] [place] [address] Dr. Grzegorz Wang NEUT # 3.1 103/ul Normal 1.4-6.5 [facility] Comment on above: Performed By: #### C BC #### [facility] [address] [place] [address] Dr. Grzegorz Wang Neutrophils/100 WBC (Bld) 52.4 % Normal 43.0-75.0 [facility] Comment on above: Performed By: #### C BC #### [facility] [address] [place] [address] Dr. Grzegorz Wang Platelet mean volume (Bld) [Entitic vol] 9.6 fL Normal 9.5-13.5 [facility] Comment on above: Performed By: #### C BC #### [facility] [address] [place] [address] Dr. Grzegorz Wang PLT 162 103/ul Normal 150-450 [facility] Comment on above: Performed By: #### C BC #### [facility] [address] [place] [address] Dr. Grzegorz Wang RBC 4.75 106/ul Normal 4.20-5.40 [facility] Comment on above: Performed By: #### C BC #### [facility] [address] [place] [address] Dr. Grzegorz Wang WBC 5.9 103/ul Normal 4.0-11.0 [facility] Comment on above: Performed By: #### C BC #### [facility] [address] [place] [address] Dr. Grzegorz Wang PROF 14(COMP METB)on 022 Albumin [Mass/Vol] 3.4 g/dL Normal 3.4-5.0 [facility] Comment on above: Performed By: #### E RUR #### [facility] [address] [place] [address] Dr. Grzegorz Wang Albumin/Globulin [Mass ratio] 1.0 {ratio} Normal [facility] Comment on above: Performed By: #### E RUR #### [facility] [address] [place] [address] Dr. Grzegorz Wang ALP [Catalytic activity/Vol] 102 U/L Normal 46-116 [facility] Comment on above: Performed By: #### E RUR #### [facility] [address] [place] [address] Dr. Grzegorz Wang ALT [Catalytic activity/Vol] 16 U/L Normal 14-59 [facility] Comment on above: Performed By: #### E RUR #### [facility] [address] [place] [address] Dr. Grzegorz Wang Anion gap [Moles/Vol] 10.6 mmol/L Normal [facility] Comment on above: Performed By: #### E RUR #### [facility] [address] [place] [address] Dr. Grzegorz Wang AST [Catalytic activity/Vol] 18 U/L Normal 15-37 [facility] Comment on above: Performed By: #### E RUR #### [facility] [address] [place] [address] Dr. Grzegorz Wang Bilirubin [Mass/Vol] 0.4 mg/dL Normal 0.2-1.0 [facility] Comment on above: Performed By: #### E RUR #### [facility] [address] [place] [address] Dr. Grzegorz Wang Calcium [Mass/Vol] 9.0 mg/dL Normal 8.5-10.1 [facility] Comment on above: Performed By: #### E RUR #### [facility] [address] [address] [address] Grzegorz Wang Chloride [Moles/Vol] 103 mmol/L Normal 98-107 [facility] Comment on above: Performed By: #### E RUR #### [facility] [address] [address] [address] Grzegorz Wang CO2 [Moles/Vol] 31.4 mmol/L Normal 21.0-32.0 [facility] Comment on above: Performed By: #### E RUR #### [facility] [address] [place] [address] Dr. Grzegorz Wang Creatinine [Mass/Vol] 0.80 mg/dL Normal 0.55-1.02 [facility] Comment on above: Performed By: #### E RUR #### [facility] [address] [place] [address] Dr. Grzegorz Wang EGFR-AF AZERBAIJANI >60 Normal >=60 [facility] Comment on above: Performed By: #### E RUR #### [facility] [address] [place] [address] Dr. Grzegorz Wang EGFR-NON AF AZERBAIJANI >60 Normal >=60 [facility] Comment on above: Performed By: #### E RUR #### [facility] [address] [place] [address] Dr. Grzegorz Wang Globulin (S) [Mass/Vol] 3.4 g/dL Normal T [facility] Comment on above: Performed By: #### E RUR #### [facility] [address] [place] [address] Dr. Grzegorz Wang Glucose [Mass/Vol] 78 mg/dL Normal 74-106 [facility] Comment on above: Performed By: #### E RUR #### [facility] [address] [address] [address] Grzegorz Wang Potassium [Moles/Vol] 3.0 mmol/L Critically low 3.5-5.1 [facility] Comment on above: Performed By: #### E RUR #### [facility] [address] [address] [address] Grzegorz Wang Protein [Mass/Vol] 6.8 g/dL Normal 6.4-8.2 [facility] Comment on above: Performed By: #### E RUR #### [facility] [address] [address] [address] Grzegorz Wang Sodium [Moles/Vol] 142 mmol/L Normal 136-145 [facility] Comment on above: Performed By: #### E RUR #### [facility] [address] [address] [address] Grzegorz Wang Urea nitrogen [Mass/Vol] 14.0 mg/dL Normal 7.0-18.0 [facility] Comment on above: Performed By: #### E RUR #### [facility] [address] [address] [address] Grzegorz Wang Urea nitrogen/Creatinine [Mass ratio] 17.5 mg/mg Normal [facility] Comment on above: Performed By: #### E RUR #### [facility] [address] [address] [address] Grzegorz Wang US JANETTE DOP LEG [...] by: MIRI BALTAZAR Date: 2022-01-22 16:38 Normal [facility] LIPID PROFILEon 01-18-2022 CHOL-HDL RATIO NORM SEE BELOW Normal [facility] Comment on above: Result Comment: 3.3 - 4.4 LOW RISK 4.4 - 7.1 AVERAGE RISK 7.1 - 11.0 MODERATE RISK >11.0 HIGH RISK Performed By: #### A PHIL OWEN #### [facility] [address] [address] [address] Grzegorz Wang Cholesterol [Mass/Vol] 125 mg/dL Normal <=200 Th [facility] Comment on above: Performed By: #### A MY, LIPA #### [facility] [address] [address] [address] Grzegorz Wang Cholesterol in HDL [Mass/Vol] 69 mg/dL Critically high 40-60 [facility] Comment on above: Performed By: #### A MY, LIPA #### [facility] [address] [address] [address] Grzegorz Wang Cholesterol in LDL [Mass/Vol] 40.0 mg/dL Normal [facility] Comment on above: Performed By: #### A MY, LIPA #### [facility] [address] [place] [address] Dr. Grzegorz Wang Cholesterol.total/Claudia sterol in HDL [Mass ratio] 1.8 {ratio} Normal [facility] Comment on above: Performed By: #### A MY, LIPA #### [facility] [address] [address] [address] Grzegorz Wang HDL NORMAL > or = 60 mg/dl - LO W CARDIOVASCULAR RISK <40 mg/dl - HIGH CARDIOVASCULAR RISK Normal [facility] Comment on above: Performed By: #### A MY, LIPA #### [facility] [address] [address] [address] Grzegorz Wang LDL CALC NORMAL SEE BELOW Normal [facility] Comment on above: Result Comment: <100 mg/dl OPTIMAL 100 - 129 mg/dl NEAR OR ABOVE OPTIMAL 130 - 159 mg/dl BORDERLINE HIGH 160 - 189 mg/dl HIGH >190 mg/dl VERY HIGH Performed By: #### A MY, LIPA #### [facility] [address] [address] [address] Grzegorz Wang Triglyceride [Mass/Vol] 80 mg/dL Normal <=[address] [facility] Comment on above: Performed By: #### A MY, LIPA #### [facility] [address] [address] [address] Grzegorz Wang VLDL CALC 16.0 mg/dL Normal [facility] Comment on above: Performed By: #### A PHIL OWEN #### [facility] [address] [address] [address] Grzegorz Wang US PELVISon 01-18-2022 US [...] by: MITZI CHAU Date: 2022-01-18 10:31 Normal [facility] XR CHEST 2 Von 01-03-2022 XR CHEST [...] by: MITZI CHAU Date: 2022-01-03 10:48 Normal [facility] US PELVISon 12-07-2021 US PELVIS EXAMINATION: US [...] MITZI CHAU Date: 2021-12-07 17:20 Normal [facility] PROF CHEM 8 (BAS METB)on Anion gap [Moles/Vol] 13.0 mmol/L Normal [facility] Comment on above: Performed By: #### A LUCHO OWENA #### [facility] [address] [place] [address] Dr. Grzegorz Wang Calcium [Mass/Vol] 8.9 mg/dL Normal 8.5-10.1 [facility] Comment on above: Performed By: #### A BRAYDEN LIPA #### [facility] [address] [place] [address] Dr. Grzegorz Wang Chloride [Moles/Vol] 105 mmol/L Normal 98-107 [facility] Comment on above: Performed By: #### A BRAYDEN LIPA #### [facility] [address] [place] [address] Dr. Grzegorz Wang CO2 [Moles/Vol] 29.0 mmol/L Normal 21.0-32.0 [facility] Comment on above: Performed By: #### A BRAYDEN LIPA #### [facility] [address] [place] [address] Dr. Grzegorz Wang Creatinine [Mass/Vol] 0.79 mg/dL Normal 0.55-1.02 [facility] Comment on above: Performed By: #### A BRAYDEN LIPA #### [facility] [address] [place] [address] Dr. Grzegorz Wang EGFR-AF AZERBAIJANI >60 Normal >=60 [facility] Comment on above: Performed By: #### A BRAYDEN LIPA #### [facility] [address] [place] [address] Dr. Grzegorz Wang EGFR-NON AF AZERBAIJANI >60 Normal >=60 [facility] Comment on above: Performed By: #### A PHIL OWEN #### [facility] [address] [place] [address] Dr. Grzegorz Wang Glucose [Mass/Vol] 79 mg/dL Normal 74-106 [facility] Comment on above: Performed By: #### A PHIL OWEN #### [facility] [address] [place] [address] Dr. Grzegorz Wang Potassium [Moles/Vol] 3.0 mmol/L Critically low 3.5-5.1 [facility] Comment on above: Performed By: #### A PHIL OWEN #### [facility] [address] [place] [address] Dr. Grzegorz Wang Sodium [Moles/Vol] 144 mmol/L Normal 136-145 [facility] Comment on above: Performed By: #### A PHIL OWEN #### [facility] [address] [place] [address] Dr. Grzegorz Wang Urea nitrogen [Mass/Vol] 12.0 mg/dL Normal 7.0-18.0 [facility] Comment on above: Performed By: #### A PHIL OWEN #### [facility] [address] [place] [address] Dr. Grzegorz Wang Urea nitrogen/Creatinine [Mass ratio] 15.2 mg/mg Normal [facility] Comment on above: Performed By: #### A BRAYDEN LIPA #### [facility] [address] [place] [address] Dr. Grzegorz Wang VITAMIN B12on 11-27-2021 Cobalamin (Vitamin B12) [Mass/Vol] 5661.0 pg/mL Critically high 193.0-986.0 [facility] Comment on above: Performed By: #### E RUR #### [facility] [address] [place] [address] Dr. Grzegorz Wang BNPon 11-26-2021 Natriuretic peptide B (Bld) [Mass/Vol] 1245.0 pg/mL Critically high <=900.0 [facility] Comment on above: Performed By: #### A BRAYDEN LIPA #### [facility] [address] [address] [address] Grzegorz Wang Bacterial blood cultureOrder ed By: Ashleigh Rashid on 11-26-2021 Bacteria identified Cx Nom (Bld) NO GROWTH 5 DAYS [facility] CARDIAC BAMBI ADMITon 022 CK [Catalytic activity/Vol] 75 U/L Normal 26-192 [facility] Comment on above: Performed By: #### A BRAYDEN LIPA #### [facility] [address] [address] [address] Grzegorz Wang CK.MB [Mass/Vol] 1.58 ng/mL Normal <=3.60 [facility] Comment on above: Performed By: #### A BRAYDEN LIPA #### [facility] [address] [place] [address] Dr. Grzegorz Wang HSTROP 13.3 pg/mL Normal 4.0-51.3 [facility] Comment on above: Result Comment: CUT- OFF POINTS HAVE BEEN ESTABLISHED BASED ON THE FOURTH UNIVERSAL DEFINITIONS OF MYOCARDIAL INFARCTION. THE UPPER REFERENCE LIMIT (URL) OF TROPONIN, DEFINED THE 99TH PERCENTILE OF cTnI DISTRIBUTION IN A REFERENCE POPULATION, HAS BEEN CONFIRMED THE DECISION THRESHOLD FOR LA DIAGNOSIS. Performed By: #### A BRAYDEN LIPA #### [facility] [address] [place] [address] Dr. Grzegorz Wang MITZI 85 ng/mL Critically high 9-82 [facility] Comment on above: Performed By: #### A BRAYDEN LIPA #### [facility] [address] [address] [address] Grzegorz Wang CBC AUTO DIFFon 11-26-2021 BASO # 0.0 103/ul Normal 0.0-0.1 [facility] Comment on above: Performed By: #### A BRAYDEN LIPA #### [facility] [address] [place] [address] Dr. Grzegorz Wang Basophils/100 WBC (Bld) 0.5 % Normal 0.2-2.0 [facility] Comment on above: Performed By: #### A BRAYDEN LIPA #### [facility] [address] [place] [address] Dr. Grzegorz Wang EO # 0.1 103/ul Normal 0.0-0.7 [facility] Comment on above: Performed By: #### A MY, LIPA #### [facility] [address] [place] [address] Dr. Grzegorz Wang Eosinophils/100 WBC (Bld) 1.3 % Normal 0.9-7.0 [facility] Comment on above: Performed By: #### A MY, LIPA #### [facility] [address] [place] [address] Dr. Grzegorz Wang Erythrocyte distribution width (RBC) [Ratio] 16.8 % Critically high 11.0-15.0 [facility] Comment on above: Performed By: #### A BRAYDEN LIPA #### [facility] [address] [place] [address] Dr. Grzegorz Wang Hematocrit (Bld) [Volume fraction] 36.6 % Normal 36.0-48.0 [facility] Comment on above: Performed By: #### A BRAYDEN LIPA #### [facility] [address] [place] [address] Dr. Grzegorz Wang Hemoglobin (Bld) [Mass/Vol] 12.1 g/dL Normal 12.0-16.0 [facility] Comment on above: Performed By: #### A BRAYDEN, LIPA #### [facility] [address] [place] [address] Dr. Grzegorz Wang IG # 0.03 10e3/ul Normal 0.00-0.03 [facility] Comment on above: Performed By: #### A MY, LIPA #### [facility] [address] [place] [address] Dr. Grzegorz Wang IG % 0.5 % Normal 0.0-0.5 [facility] Comment on above: Performed By: #### A MY, LIPA #### [facility] [address] [place] [address] Dr. Grzegorz Wang LYMPH # 0.9 103/ul Critically low 1.2-3.8 [facility] Comment on above: Performed By: #### A MY, LIPA #### [facility] [address] [place] [address] Dr. Grzegorz Wang Lymphocytes/100 WBC (Bld) 15.4 % Critically low 20.5-60.0 [facility] Comment on above: Performed By: #### A MY, LIPA #### [facility] [address] [place] [address] Dr. Grzegorz Wang MANUAL DIFF REQ NO Normal [facility] Comment on above: Performed By: #### A MY, LIPA #### [facility] [address] [place] [address] Dr. Grzegorz Wang MCH (RBC) [Entitic mass] 27.7 pg Normal 26.7-34.0 [facility] Comment on above: Performed By: #### A MY, LIPA #### [facility] [address] [place] [address] Dr. Grzegorz Wang MCHC (RBC) [Mass/Vol] 33.1 g/dL Normal 29.9-35.2 [facility] Comment on above: Performed By: #### A BRAYDEN LIPA #### [facility] [address] [place] [address] Dr. Grzegorz Wang MCV (RBC) [Entitic vol] 83.8 fL Normal 81.0-99.0 [facility] Comment on above: Performed By: #### A MY, LIPA #### [facility] [address] [place] [address] Dr. Grzegorz Wang MONO # 0.5 103/ul Normal 0.3-0.8 [facility] Comment on above: Performed By: #### A MY, LIPA #### [facility] [address] [place] [address] Dr. Grzegorz Wang Monocytes/100 WBC (Bld) 7.8 % Normal 1.7-12.0 [facility] Comment on above: Performed By: #### A MY, LIPA #### [facility] [address] [place] [address] Dr. Grzegorz Wang NEUT # 4.5 103/ul Normal 1.4-6.5 [facility] Comment on above: Performed By: #### A LUCHO OWENA #### [facility] [address] [place] [address] Dr. Grzegorz Wang Neutrophils/100 WBC (Bld) 74.5 % Normal 43.0-75.0 [facility] Comment on above: Performed By: #### Luna OWEN LIPA #### [facility] [address] [place] [address] Dr. Grzegorz Wang Platelet mean volume (Bld) [Entitic vol] 11.2 fL Normal 9.5-13.5 [facility] Comment on above: Performed By: #### LUCHO CHAKRABORTYA #### [facility] [address] [place] [address] Dr. Grzegorz Wang PLT 187 103/ul Normal 150-450 [facility] Comment on above: Performed By: #### Luna OWEN LIPA #### [facility] [address] [place] [address] Dr. Grzegorz Wang RBC 4.37 106/ul Normal 4.20-5.40 [facility] Comment on above: Performed By: #### LUCHO CHAKRABORTYA #### [facility] [address] [place] [address] Dr. Grzegorz Wang WBC 6.0 103/ul Normal 4.0-11.0 [facility] Comment on above: Performed By: #### Luna OWEN LIPA #### [facility] [address] [place] [address] ABD/PELVIS WO CONon [...] by: MANDI MANRIQUEZ Date: 2021-11-26 15:08 Normal [facility] CT CSPINE WO CONon 2 CT CSPINE [...] by: SHANIA WASHINGTON Date: 2021-11-26 14:44 Normal [facility] ER URINE PROFILEon 2 Bilirubin Ql (U) Negative Normal NEGATIVE [facility] Comment on above: Performed By: #### C BC #### [facility] [address] [place] [address] Dr. Grzegorz Wang Clarity (U) CLEAR Normal CLEAR [facility] Comment on above: Performed By: #### C BC #### [facility] [address] [place] [address] Dr. Grzegorz Wang Color (U) LT. YELLOW Normal YELLOW [facility] Comment on above: Performed By: #### C BC #### [facility] [address] [place] [address] Dr. Grzegorz Wang ERUAudra A micrscopic examination will be performed if indicated. Normal [facility] Comment on above: Performed By: #### C BC #### [facility] [address] [place] [address] Dr. Grzegorz Wang Glucose Ql (U) Negative Normal NEGATIVE [facility] Comment on above: Performed By: #### C BC #### [facility] [address] [place] [address] Dr. Grzegorz Wang Hemoglobin Ql (U) TRACE-INTACT Abnormal NEGATIVE [facility] Comment on above: Performed By: #### C BC #### [facility] [address] [place] [address] Dr. Grzegorz Wang Ketones Ql (U) Negative Normal NEGATIVE [facility] Comment on above: Performed By: #### C BC #### [facility] [address] [place] [address] Dr. Grzegorz Wang LEUKOCYTES Negative Normal NEGATIVE [facility] Comment on above: Performed By: #### C BC #### [facility] [address] [place] [address] Dr. Grzegorz Wang Nitrite Ql (U) Negative Normal NEGATIVE [facility] Comment on above: Performed By: #### C BC #### [facility] [address] [place] [address] Dr. Grzegorz Wang pH (U) 5.5 [pH] Normal 5-9 [facility] Comment on above: Performed By: #### C BC #### [facility] [address] [place] [address] Dr. Grzegorz Wang SPEC GRAVITY <=1.005 Abnormal 1.005-<=1.0 25 [facility] Comment on above: Performed By: #### C BC #### [facility] [address] [place] [address] Dr. Grzegorz Wang UA PROTEIN Negative Normal NEGATIVE/ TRACE [facility] Comment on above: Performed By: #### C BC #### [facility] [address] [place] [address] Dr. Grzegorz Wang UR MICRO IND INDICATED Normal [facility] Comment on above: Performed By: #### C BC #### [facility] [address] [place] [address] Dr. Grzegorz Wang Urobilinogen Qn (U) 0.2 {Lidya'U}/dL Normal 0.2 - 1. 0 [facility] Comment on above: Performed By: #### C BC #### [facility] [address] [address] [address] Grzegorz Wang PROF 14(COMP METB)on 022 Albumin [Mass/Vol] 3.5 g/dL Normal 3.4-5.0 [facility] Comment on above: Performed By: #### A MY, LIPA #### [facility] [address] [address] [address] Grzegorz Wang Albumin/Globulin [Mass ratio] 1.1 {ratio} Normal [facility] Comment on above: Performed By: #### A MY, LIPA #### [facility] [address] [address] [address] Grzegorz Wang ALP [Catalytic activity/Vol] 89 U/L Normal 46-116 [facility] Comment on above: Performed By: #### A BRAYDEN, LIPA #### [facility] [address] [place] [address] Dr. Grzegorz Wang ALT [Catalytic activity/Vol] 22 U/L Normal 14-59 [facility] Comment on above: Performed By: #### A BRAYDEN, LIPA #### [facility] [address] [place] [address] Dr. Grzegorz Wang Anion gap [Moles/Vol] 10.2 mmol/L Normal [facility] Comment on above: Performed By: #### A BRAYDEN, LIPA #### [facility] [address] [place] [address] Dr. Grzegorz Wang AST [Catalytic activity/Vol] 18 U/L Normal 15-37 [facility] Comment on above: Performed By: #### A MY, LIPA #### [facility] [address] [place] [address] Dr. Grzegorz Wang Bilirubin [Mass/Vol] 0.6 mg/dL Normal 0.2-1.0 [facility] Comment on above: Performed By: #### A MY, LIPA #### [facility] [address] [place] [address] Dr. Grzegorz Wang Calcium [Mass/Vol] 9.1 mg/dL Normal 8.5-10.1 [facility] Comment on above: Performed By: #### A MY, LIPA #### [facility] [address] [address] [address] Grzegorz Wang Chloride [Moles/Vol] 106 mmol/L Normal 98-107 [facility] Comment on above: Performed By: #### A MY, LIPA #### [facility] [address] [address] [address] Grzegorz Wang CO2 [Moles/Vol] 29.5 mmol/L Normal 21.0-32.0 [facility] Comment on above: Performed By: #### A MY, LIPA #### [facility] [address] [address] [address] Grzegorz Wang Creatinine [Mass/Vol] 0.86 mg/dL Normal 0.55-1.02 [facility] Comment on above: Performed By: #### A MY, LIPA #### [facility] [address] [place] [address] Dr. Grzegorz Wang EGFR-AF AZERBAIJANI >60 Normal >=60 [facility] Comment on above: Performed By: #### A MY, LIPA #### [facility] [address] [address] [address] Grzegorz Wang EGFR-NON AF AZERBAIJANI >60 Normal >=60 [facility] Comment on above: Performed By: #### A MY, LIPA #### [facility] [address] [address] [address] Grzegorz Wang Globulin (S) [Mass/Vol] 3.1 g/dL Normal [facility] Comment on above: Performed By: #### A MY, LIPA #### [facility] [address] [address] [address] Grzegorz Wang Glucose [Mass/Vol] 98 mg/dL Normal 74-106 [facility] Comment on above: Performed By: #### A MY, LIPA #### [facility] [address] [address] [address] Grzegorz Wang Potassium [Moles/Vol] 2.7 mmol/L Critically low 3.5-5.1 [facility] Comment on above: Performed By: #### A MY, LIPA #### [facility] [address] [place] [address] Dr. Grzegorz Wang Protein [Mass/Vol] 6.6 g/dL Normal 6.4-8.2 [facility] Comment on above: Performed By: #### A MY, LIPA #### [facility] [address] [place] [address] Dr. Grzegorz Wang Sodium [Moles/Vol] 143 mmol/L Normal 136-145 [facility] Comment on above: Performed By: #### A MY, LIPA #### [facility] [address] [place] [address] Dr. Grzegorz Wang Urea nitrogen [Mass/Vol] 12.0 mg/dL Normal 7.0-18.0 [facility] Comment on above: Performed By: #### A MY, LIPA #### [facility] [address] [place] [address] Dr. Grzegorz Wang Urea nitrogen/Creatinine [Mass ratio] 14.0 mg/mg Normal [facility] Comment on above: Performed By: #### A MY, LIPA #### [facility] [address] [place] [address] Dr. Grzegorz Wang PROTIMEon 11-26-2021 INR Coag (PPP) [Relative time] 1.00 {INR} Normal [facility] Comment on above: Performed By: #### C BC #### [facility] [address] [place] [address] Dr. Grzegorz Wang INR GUIDELINES SEE BELOW Normal [facility] Comment on above: Result Comment: DENTON RED INR: 2.0 - 3.0 CONDITIONS NOT LISTED BELOW 2.5 - 3.5 FOR PROSTHETIC HEART VALVE REPLACEMENT 2.5 - 3.5 RECURRENT THROMBOSIS Performed By: #### C BC #### [facility] [address] [place] [address] Dr. Grzegorz Wang PT Coag (PPP) [Time] 10.8 s Normal 9.0-11.6 [facility] Comment on above: Performed By: #### C BC #### [facility] [address] [place] [address] Dr. Grzegorz Wang PTTon 11-26-2021 aPTT Coag (Bld) [Time] 23.1 s Normal 22.3-36.2 Th e [facility] Comment on above: Performed By: #### C BC #### [facility] [address] [place] [address] Dr. Grzegorz Wang URINE MICROSCOPIC ONLYon BACTERIA NONE SEEN Normal NONE SEEN [facility] Comment on above: Performed By: #### C BC #### [facility] [address] [place] [address] Dr. Grzegorz Wang Bacteria identified Cx Nom (U) NOT INDICATED Normal [facility] Comment on above: Performed By: #### C BC #### [facility] [address] [place] [address] Dr. Grzegorz Wang CAST NONE SEEN Normal NONE SEEN [facility] Comment on above: Performed By: #### C BC #### [facility] [address] [place] [address] Dr. Grzegorz Wang Crystals LM Nom (Urine sed) NONE SEEN Normal NONE SEEN [facility] Comment on above: Performed By: #### C BC #### [facility] [address] [place] [address] Dr. Grzegorz Wang Epithelial cells LM Ql (Urine sed) FEW Abnormal NONE SEEN /RARE [facility] Comment on above: Performed By: #### C BC #### [facility] [address] [place] [address] Dr. Grzegorz Wang MUCOUS NONE SEEN Normal NONE SEEN [facility] Comment on above: Performed By: #### C BC #### [facility] [address] [place] [address] Dr. Grzegorz Wang RBC 0-2 Normal 0-2 [facility] Comment on above: Performed By: #### C BC #### [facility] [address] [place] [address] Dr. Grzegorz Wang WBC 0-2 Abnormal NONE SEEN [facility] Comment on above: Performed By: #### C BC #### [facility] [address] [address] [address] Grzegorz Wang XR CHEST 1 Von [...] by: NATACHA CERNA Date: 2021-11-26 14:[address] [facility] [address] BRAIN HEAD WO CONTRASTon 11-24-2021 CT [...] AGUILAR MD Signed Out: 11/24/21 14:21:18 Normal [facility] ED Adult Data - Texton 11-24 [...] restricted extremity? : No Jennifer Mccarthy RN 11/24/2021 15:25 EDT Problem List Problem List obtained from : Jennifer Brooks RN 11/24/2021 15:25 EDT (As Of: 11/24/2021 15:26:01 EDT) Diagnoses(Active) Fall Date: 11/24/2021 ; Diagnosis Type: Reason For Visit ; Confirmation: Confirmed ; Clinical Dx: Fall ; Classification: Medical ; Clinical Service: Non-Specified ; Code: PNED ; Probability: 0 ; Diagnosis Code: [id number] Fall Date: 11/24/2021 ; Diagnosis Type: Reason For Visit ; Confirmation: Confirmed ; Clinical Dx: Fall ; Classification: Medical ; Clinical Service: Emergency medicine ; Code: PNED ; Probability: 0 ; Diagnosis Code: [id number] Procedure History ED Devices Present on Arrival To ED : None Urinary Catheter Present on Admit to ED : No Jennifer Mccarthy RN - 11/24/2021 15:25 EDT - Procedure History (As Of: 11/24/2021 15:26:01 EDT) Social History Does pt have any alcohol,drugs or tobacco : No Do you consume Alcohol : No Social History obtained from : Jennifer Brooks RN 11/24/2021 15:25 EDT Social History (As Of: [...] risk situation (congregated living, hemodialysis, infusion clinic, long term, assisted living, alf, homeless custodial, etc.)? : No Jennifer Mccarthy RN - 11/24/2021 15:25 EDT Normal [facility] ED Discharge Educationon ED Discharge Education [...] your doctor if you can take an liem-oly-puzippe medicine. When should you call for help? [...] Where can you learn more? Go to https://www.[employer].ON24/patientEd Enter E525 in the search box to learn more about Cuts Closed With Kemi: Care Instructions. Current as of: April 08, 2019 Content Version: 12.7 ? [employer]. Care instructions adapted under license by your healthcare professional. If you have questions about a medical condition or this instruction, always ask your healthcare professional. [employer] disclaims any warranty or liability for your [...] she will (more content not included)... Normal [facility] ED Emergency Severity Index Adult-Texton 11-24-2021 [...] Mccarthy RN - 11/24/2021 12:33 EDT Normal [facility] ED Nrsing Adlt Triage Sep Sc rning - Texton 11-24-2021 ED Nrsing Adlt Triage Sep Scrning - Text ED Nursing Adult Triage Sepsis Screening Tool Entered On: 11/24/2021 13:00 EDT Performed On: 11/24/2021 13:00 EDT by Jennifer Mccarthy RN Adult Sepsis Screening Sepsis Infection Screening ED : Yes Sepsis Vitals Screening ED : None/ NA(Peds) Fabio BATISTA, Jennifer - 11/24/2021 13:00 EDT Normal [facility] ED Patient Summaryon 022 ED Patient Summary [facility] Emergency Department Discharge Instructions [address] [place] [address] \.br\(Patient Copy)\.br\ \.br\Name: OZZIE GIFFORD : 1950 \.br\Allergies: penicillin\.br\Diagno sis: Accidental fall; CHI (closed head injury); Contusion of rib on right side; Laceration of scalp\.br\ \.br\ Visit Date: 11/24/2021 12:30:03 \.br\ Current Date Time: 11/24/2021 17:30:08 \.br\Address: [address] [place] [address] [place] [address] \.br\ \.br\ \.br\Primary Care Provider: \.br\Name: NO FAMILY PHYSICIAN, 837\.br\Phone: \.br\ \.br\Emergency Department Care Providers: \.br\ Primary Physician: LUIS MCKEON MD \.br\ \.br\ \.br\.br\Thank you for choosing [facility] for your emergency care. You are very important to us. Our goal is to demonstrate our high quality medical care, and provide you with a very good patient experience.\.br\.br\ You may receive a survey about our service. Please take the time to complete the survey and return it so we can continue to enhance our service.\.br\.br\Maxx nk you again for allowing the [facility] Emergency Department to care for your medical needs. If you have questions about your care or follow up information please contact us at [phone].\.br\.b r\ Follow-Up Instructions\.br\____ _\.br\OZZIE GIFFORD has been given these follow-up instructions:\.br\.b r\.br\With: Address: When: \.br\[facility] [address], [address] [place] [address]\.br\ Business (1) Within 7 to 10 days \.br\.br\.br\With: Address: When: \.br\[address] NO FAMILY PHYSICIAN Within 3 to 5 days \.br\.br\.br\.br\ .br\Patient Education Materials\.br\ \. br\OZZIE GIFFORD has been given the following patient education materials:\.br\.br\C uts Closed With Kemi: Care Instructions\.br\Your Care Instructions\.br\A cut can happen anywhere on your body.\.br\The doctor used kemi to close the cut. [place] easily and quickly close a cut, which [...] your doctor if you can take an qbys-nif-ajxuxxq medicine.\.br\When should you call for help?\.br\ Call [...] get b (more content not included)... Normal [facility] ED Physician Reporton 2021 ED Physician [...] The location where the incident occurred was [facility]. Location: Posterior head. The character of symptoms is pain. Therapy today: see nurses notes. Associated symptoms: denies loss of consciousness. This is a 71 y/o female presenting to the ED via EMS for evaluation of a mechanical fall. The patient [place] [employer] and she was going down steps and [...] WO CONTRAST (more content not included)... Normal [facility] ED Pre-Arrival Formon 2021 ED Pre-Arrival Form Pre-Arrival Summary Name: KARTIK, Current Date: 11/24/2021 12:31:19 EDT Gender: Date of : Age: Pre-Arrival Type: EMS ETA: 11/24/2021 12:53:00 EDT Primary Care Physician: Presenting Problem: Pre-Arrival User: Kailyn Jacobs RN Referring Source: Location: [address] [place] [address] Emergency Department [address] [place] [address]. [place] [address] Notes: Vital Signs: Doctor Call Back: DNR Status: Miscellaneous Issues: Normal [facility] ED Progress Noteon 2 ED Progress Note Pt presents to ED [...] understanding, pt ambulatory with steady gait Normal [facility] ED Triage Adult-Texton 11-24 ED Triage [...] PNED ; Probability: 0 ; Diagnosis Code: [id number] (As Of: 11/24/2021 13:00:25 EDT) Vitals/Ht/Wt Temperature [...] Mccarthy RN - 11/24/2021 12:59 EDT Normal [facility] Urine culture routineOrdered By: Rafiq Bahena on 11-23-2021 Bacteria identified Cx Nom (U) Escherichia coli [facility] Albumin [Mass/volume] in Ser um or PlasmaOrdered By: Ashleigh Rashid on 11-22-2021 Albumin [Mass/Vol] 3.0 g/dL 3.2-5.5 [facility] Basophils Auto (Bld) [#/Vol] Ordered By: Ashleigh Rashid on 11-22-2021 Basophils (Bld) [#/Vol] 0.0 10*3/uL 0.0-0.2 [facility] Basophils/100 WBC Auto (Bld) Ordered By: Ashleigh Rashid on 11-22-2021 Basophils/100 WBC (Bld) 0.6 % . [facility] Creatinine and Glomerular fi ltration rate.predicted panel (S/P/Bld)Ordered By: Ashleigh Rashid on 11-22-2021 Creatinine [Mass/Vol] 1.10 mg/dL 0.44-1.03 [facility] Comment on above: Delta: 2.08 on 11/21 Eosinophils Auto (Bld) [#/Vo l]Ordered By: Ashleigh Rashid on 11-22-2021 Eosinophils (Bld) [#/Vol] 0.2 10*3/uL 0.0-0.45 [facility] Eosinophils/100 WBC Auto (Bl d)Ordered By: Ashleigh Rashid on 11-22-2021 Eosinophils/100 WBC (Bld) 4.4 % . [facility] Erythrocyte distribution wid th Auto (RBC) [Ratio]Ordered By: Ashleigh Rashid on 11-22-2021 Erythrocyte distribution width (RBC) [Ratio] 20.7 % 11.9-15.3 [facility] Estimated glomerular filtrat ion rate (GFR) non- AmericanOrdered By: Ashleigh Rashid on 11-22-2021 GFR/1.73 sq M.predicted among non-blacks MDRD (S/P/Bld) [Vol rate/Area] 49 mL/Min [facility] Globulin Calc (S) [Mass/Vol] Ordered By: Ashleigh Rashid on 11-22-2021 Globulin (S) [Mass/Vol] 2.4 g/dL [facility] Hematocrit Auto (Bld) [Volum e fraction]Ordered By: Ashleigh Rashid on 11-22-2021 Hematocrit (Bld) [Volume fraction] 36.9 % 34.0-46.4 [facility] Hemoglobin [Mass/volume] in BloodOrdered By: Ashleigh Rashid on 11-22-2021 Hemoglobin (Bld) [Mass/Vol] 12.1 g/dL 11.8-15.4 [facility] - Chemistry and C hemistry - challengeOrdered By: Ashleigh Rashid on 11-22-2021 Magnesium [Mass/Vol] 2.1 mg/dL 1.6-2.6 [facility] - Hematology and Cell countsOrdered By: Ashleigh Rashid on 11-22-2021 Nucleated RBC/100 WBC (Bld) [Ratio] 0.1 % 0-0.5 [facility] Leukocytes [#/volume] in Blo od by Automated countOrdered By: Ashleigh Rashid on 11-22-2021 WBC (Bld) [#/Vol] 4.7 10*3/uL 4.5-11.0 [facility] Lymphocytes Auto (Bld) [#/Vo l]Ordered By: Ashleigh Rashid on 11-22-2021 Lymphocytes (Bld) [#/Vol] 1.2 10*3/uL 1.00-4.8 [facility] Lymphocytes/100 WBC Auto (Bl d)Ordered By: Ashleigh Rashid on 11-22-2021 Lymphocytes/100 WBC (Bld) 26.0 % . [facility] MCH Auto (RBC) [Entitic mass ]Ordered By: Ashleigh Rashid on 11-22-2021 MCH (RBC) [Entitic mass] 27.2 pg 24.7-34.3 [facility] MCHC Auto (RBC) [Mass/Vol]Or dered By: Ashleigh Rashid on 11-22-2021 MCHC (RBC) [Mass/Vol] 32.6 g/dL 32.0-35.0 [facility] MCV Auto (RBC) [Entitic vol] Ordered By: Ashleigh Rashid on 11-22-2021 MCV (RBC) [Entitic vol] 83.5 fL 80-100 [facility] Monocytes Auto (Bld) [#/Vol] Ordered By: Ashleigh Rashid on 11-22-2021 Monocytes (Bld) [#/Vol] 0.4 10*3/uL 0.0-0.8 [facility] Monocytes/100 WBC Auto (Bld) Ordered By: Ashleigh Rashid on 11-22-2021 Monocytes/100 WBC (Bld) 8.4 % . [facility] Neutrophils Auto (Bld) [#/Vo l]Ordered By: Ashleigh Rashid on 11-22-2021 Neutrophils (Bld) [#/Vol] 2.8 10*3/uL 1.8-7.7 [facility] Neutrophils/100 WBC Auto (Bl d)Ordered By: Ashleigh Rashid on 11-22-2021 Neutrophils/100 WBC (Bld) 60.6 % . [facility] No Panel InformationOrdered By: Ashleigh Rashid on 11-22-2021 Estimated GFR () 59 mL/Min [facility] Comment on above: GFR estimated refere nce range: According to KDOQI guidelines, <60 ml/min/1.73m2 is sufficient to diagnose a patient with chronic kidney disease. Pharmacy Creatinine Clearance (Chem 44.22 [facility] Platelet mean volume Auto (B ld) [Entitic vol]Ordered By: Ashleigh Rashid on 11-22-2021 Platelet mean volume (Bld) [Entitic vol] 9.7 fL 6.3-10.7 [facility] Platelets Auto (Bld) [#/Vol] Ordered By: Ashleigh Rashid on 11-22-2021 Platelets (Bld) [#/Vol] 184 10*3/uL 150-450 [facility] Protein [Mass/volume] in Ser um or PlasmaOrdered By: Ashleigh Rashid on 11-22-2021 Protein [Mass/Vol] 5.4 g/dL 6.1-7.9 [facility] RBC Auto (Bld) [#/Vol]Ordere d By: Ashleigh Rashid on 11-22-2021 RBC (Bld) [#/Vol] 4.43 10*6/uL 3.60-5.00 [facility] Serum or plasma alanine zapata otransferase measurement without P-5'-P (enzymatic activiOrdered By: Ashleigh Rashid on 11-22-2021 ALT No additional P-5'-P [Catalytic activity/Vol] 16 U/L 10-60 [facility] Serum or plasma albumin/glob ulin mass ratioOrdered By: Ashleigh Rashid on 11-22-2021 Albumin/Globulin [Mass ratio] 1.3 {ratio} [facility] Serum or plasma alkaline brandy sphatase measurement (enzymatic activity/volume)Ordered By: Ashleigh Rashid on 11-22-2021 ALP [Catalytic activity/Vol] 70 U/L 32-92 [facility] Serum or plasma anion gap de terminationOrdered By: Ashleigh Rashid on 11-22-2021 Anion gap [Moles/Vol] 12.2 mmol/L 6.0-15.0 [facility] Serum or plasma aspartate am inotransferase measurement (enzymatic activity/volume)Ordered By: Ashleigh Rashid on 11-22-2021 AST [Catalytic activity/Vol] 15 U/L 10-42 [facility] Serum or plasma calcium lay urement (mass/volume)Ordered By: Ashleigh Rashid on 11-22-2021 Calcium [Mass/Vol] 8.9 mg/dL 8.2-10.2 [facility] Serum or plasma chloride rosaline surement (moles/volume)Ordered By: Ashleigh Rashid on 11-22-2021 Chloride [Moles/Vol] 115 mmol/L 95-114 [facility] Serum or plasma glucose lay urement (mass/volume)Ordered By: Ashlegih Rashid on 11-22-2021 Glucose [Mass/Vol] 93 mg/dL 70-100 [facility] Comment on above: ADA recommended refe rence rangeRandom Glucose Reference Range is dependent on time and content of last meal. Glucose of more than 200 mg/dL in a nonstressed, ambulatory subject supports the diagnosis of Diabetes Mellitus. Serum or plasma potassium me asurement (moles/volume)Ordered By: Ashleigh Rashid on 11-22-2021 Potassium [Moles/Vol] 3.1 mmol/L 3.5-5.1 [facility] Serum or plasma sodium measu rement (moles/volume)Ordered By: Ashleigh Rashid on 11-22-2021 Sodium [Moles/Vol] 147 mmol/L 136-146 [facility] Serum or plasma total biliru bin measurement (mass/volume)Ordered By: Ashleigh Rashid on 11-22-2021 Bilirubin [Mass/Vol] 0.7 mg/dL 0.3-1.2 [facility] Serum or plasma total carbon dioxide measurement (moles/volume)Ordered By: Ashleigh Rashid on 11-22-2021 CO2 [Moles/Vol] 22.9 mmol/L 22.0-30.0 [facility] Serum or plasma urea nitroge n measurement (mass/volume)Ordered By: Ashleigh Rashid on 11-22-2021 Urea nitrogen [Mass/Vol] 28 mg/dL 9-23 [facility] Amphetamine Screen Ql (U)Ord ered By: Rafiq Bahena on 11-21-2021 Amphetamines Ql (U) Negative Negative [facility] Automated erythrocytes count in urine sediment (number/area)Ordered By: Rafiq Bahena on 11-21-2021 RBC Auto (Urine sed) [#/Area] 0-1 [HPF] 0-4 [facility] Automated leukocytes count i n urine sediment (number/area)Ordered By: Rafiq Bahena on 11-21-2021 WBC Auto (Urine sed) [#/Area] 3-4 [HPF] 0-4 [facility] Barbiturates [Presence] in U rineOrdered By: Rafiq Bahena on 11-21-2021 Barbiturates Ql (U) Negative Negative [facility] Basophils Auto (Bld) [#/Vol] Ordered By: Rafiq Bahena on 11-21-2021 Basophils (Bld) [#/Vol] 0.0 10*3/uL 0.0-0.2 [facility] Basophils/100 WBC Auto (Bld) Ordered By: Rafiq Bahena on 11-21-2021 Basophils/100 WBC (Bld) 0.8 % . [facility] Benzodiazepines [Presence] i n UrineOrdered By: Rafiq Bahena on 11-21-2021 Benzodiazepines Ql (U) Negative Negative [facility] Bilirubin Test strip Ql (U)O rdered By: Rafiq Bahena on 11-21-2021 Bilirubin Ql (U) Negative Negative [facility] Blood hemoglobin measurement (mass/volume)Ordered By: Rafiq Bahena on 11-21-2021 Hemoglobin (Bld) [Mass/Vol] 11.6 g/dL 11.8-15.4 [facility] Blood leukocytes automated c ount (number/volume)Ordered By: Rafiq Bahena on 11-21-2021 WBC (Bld) [#/Vol] 5.3 10*3/uL 4.5-11.0 [facility] Body fluid albumin measureme nt (mass/volume)Ordered By: Rafiq Bahena on 11-21-2021 Albumin (Body fld) [Mass/Vol] 3.4 g/dL 3.2-5.5 [facility] COVID CepheidOrdered By: Dagoberto Rashid on 11-21-2021 SARS-CoV-2 (COVID-19) Ab IA Ql Negative Negative [facility] Comment on above: This is a duplicate [employer] Xpert Xpress CoV-2/Flu/RSV Plus RNA by RT-PCR result to be used for statistical tracking purpose only. SARS-CoV-2 (COVID-19) RNA SIOBHAN+probe Ql (Unsp spec) [facility] COVID-19 Positive/NegativeOr dered By: Rafiq Bahena on 11-21-2021 SARS-CoV-2 (COVID-19) N gene SIOBHAN+probe Ql (Resp) Indeterminate Negative [facility] Comment on above: Testing for SARS-CoV -2 by RT-PCRThis test was developed and its performance characteristics determined by [employer] and validated at the [facility]. This test has not been FDA [...] (COVID-19) Ag IA.rapid Ql (Resp) Negative Negative [facility] Comment on above: This is a duplicate [employer] SARS Antigen ([employer]) result to be used for statistical tracking purpose only. Cannabinoids [Presence] in U rine by Screen methodOrdered By: Rafiq Bahena on 11-21-2021 Cannabinoids Screen Ql (U) Negative Negative [facility] Comment on above: These are unconfirme d results and should not be used for legal purposes. Drug Cut-Off Concentration: AMPH 1000 ng/mL RONALD 200 ng/mL CARMELA 200 ng/mL COCM 300 ng/mL OP 300 ng/mL PCP 25 ng/mL THC 20 ng/mL Color Auto (U)Ordered By: Vishnu Bahena on 11-21-2021 Color (U) Yellow Yellow [facility] Creatinine and Glomerular fi ltration rate.predicted panel (S/P/Bld)Ordered By: Rafiq Bahena on 11-21-2021 Creatinine [Mass/Vol] 2.08 mg/dL 0.44-1.03 [facility] Eosinophils Auto (Bld) [#/Vo l]Ordered By: Rafiq Baehna on 11-21-2021 Eosinophils (Bld) [#/Vol] 0.2 10*3/uL 0.0-0.45 [facility] Eosinophils/100 WBC Auto (Bl d)Ordered By: Rafiq Bahena on 11-21-2021 Eosinophils/100 WBC (Bld) 3.7 % . [facility] Erythrocyte distribution wid th Auto (RBC) [Ratio]Ordered By: Rafiq Bahena on 11-21-2021 Erythrocyte distribution width (RBC) [Ratio] 20.4 % 11.9-15.3 [facility] Estimated glomerular filtrat ion rate (GFR) non- AmericanOrdered By: Rafiq Bahena on 11-21-2021 GFR/1.73 sq M.predicted among non-blacks MDRD (S/P/Bld) [Vol rate/Area] 23 mL/Min [facility] Globulin Calc (S) [Mass/Vol] Ordered By: Rafiq Bahena on 11-21-2021 Globulin (S) [Mass/Vol] 2.1 g/dL [facility] Glucose Glucometer (BldC) [M ass/Vol]Ordered By: Rafiq Bahena on 11-21-2021 Glucose [Mass/Vol] 134 mg/dL [facility] Comment on above: Random Glucose Refer ence Range is dependent on time and content of last meal. Glucose of more than 200 mg/dL in a nonstressed, ambulatory subject supports the diagnosis of Diabetes Mellitus. Hematocrit Auto (Bld) [Volum e fraction]Ordered By: Rafiq Bahena on 11-21-2021 Hematocrit (Bld) [Volume fraction] 35.6 % 34.0-46.4 [facility] Ketones Auto test strip (U) [Mass/Vol]Ordered By: Rafiq Bahena on 11-21-2021 Ketones (U) [Mass/Vol] Negative Negative Fi [facility] - Chemistry and C hemistry - challengeOrdered By: Rafiq Bahena on 11-21-2021 CO2 [Moles/Vol] 23.8 mmol/L 23.0-27.0 [facility] HCO3 (Bld) [Moles/Vol] 22.6 mmol/L 23.0-29.0 [facility] - Drug toxicology Ordered By: Rafiq Bahena on 11-21-2021 Opiates Ql (U) Negative Negative [facility] - Hematology and Cell countsOrdered By: Rafiq Bahena on 11-21-2021 Nucleated RBC/100 WBC (Bld) [Ratio] 0.0 % 0-0.5 [facility] - UrinalysisOrder ed By: Rafiq Bahena on 11-21-2021 Hyaline casts LM Ql (Urine sed) 0-8 [LPF] 0-8 [facility] Lymphocytes Auto (Bld) [#/Vo l]Ordered By: Rafiq Bahena on 11-21-2021 Lymphocytes (Bld) [#/Vol] 1.1 10*3/uL 1.00-4.8 [facility] Lymphocytes/100 WBC Auto (Bl d)Ordered By: Rafiq Bahena on 11-21-2021 Lymphocytes/100 WBC (Bld) 20.4 % . [facility] MCH Auto (RBC) [Entitic mass ]Ordered By: Rafiq Bahena on 11-21-2021 MCH (RBC) [Entitic mass] 26.9 pg 24.7-34.3 [facility] MCHC Auto (RBC) [Mass/Vol]Or dered By: Rafiq Bahena on 11-21-2021 MCHC (RBC) [Mass/Vol] 32.6 g/dL 32.0-35.0 [facility] MCV Auto (RBC) [Entitic vol] Ordered By: Rafiq Bahena on 11-21-2021 MCV (RBC) [Entitic vol] 82.5 fL 80-100 [facility] Monocyte %Ordered By: Rafiq Bahena on 11-21-2021 Monocyte % 17 umol/L -35 [facility] Monocytes Auto (Bld) [#/Vol] Ordered By: Rafiq Bahena on 11-21-2021 Monocytes (Bld) [#/Vol] 0.5 10*3/uL 0.0-0.8 [facility] Monocytes/100 WBC Auto (Bld) Ordered By: Rafiq Bahena on 11-21-2021 Monocytes/100 WBC (Bld) 9.9 % . [facility] Neutrophils Auto (Bld) [#/Vo l]Ordered By: Rafiq Bahena on 11-21-2021 Neutrophils (Bld) [#/Vol] 3.5 10*3/uL 1.8-7.7 [facility] Neutrophils/100 WBC Auto (Bl d)Ordered By: Rafiq Bahena on 11-21-2021 Neutrophils/100 WBC (Bld) 65.2 % . [facility] Nitrite Test strip Ql (U)Ord ered By: Rafiq Bahena on 11-21-2021 Nitrite Ql (U) Positive Negative [facility] No Panel InformationOrdered By: Ashleigh Rashid on 11-21-2021 Vitamin B12 Level > 7500 pg/mL 180-914 [facility] No Panel InformationOrdered By: Rafiq Bahena on 11-21-2021 Arterial Blood Base Excess -1.9 mmol/L -3.0-3.0 [facility] Arterial Blood Oxygen Content 7.1 mmol/L 6.6-9.7 [facility] Arterial Blood Oxygen Saturation 95.9 % 95.0-100.0 [facility] Arterial Blood Partial Pressure CO2 37.8 mm[Hg] 35.0-45.0 [facility] Arterial Blood Partial Pressure O2 82.7 mm[Hg] 80.0-100.0 [facility] Arterial Blood pH 7.40 7.35-7.45 [facility] Blood Gas Critical Value See comment [facility] Comment on above: Critical Value sargent d on: 11/21/2021 at 06:17 Blood Gas Sample Site Left radial [facility] FiO2 21 % [facility] Estimated GFR () 28 mL/Min [facility] Comment on above: GFR estimated refere nce range: According to KDOQI guidelines, <60 ml/min/1.73m2 is sufficient to diagnose a patient with chronic kidney disease. Pharmacy Creatinine Clearance (Chem 22.98 [facility] Bedside Glucose Comment Glu2: cleaned meter [facility] Phencyclidine Screen Ql (U)O rdered By: Rafiq Bahena on 11-21-2021 Phencyclidine Ql (U) Negative Negative [facility] Platelet mean volume Auto (B ld) [Entitic vol]Ordered By: Rafiq Bahena on 11-21-2021 Platelet mean volume (Bld) [Entitic vol] 9.6 fL 6.3-10.7 [facility] Platelets Auto (Bld) [#/Vol] Ordered By: Rafiq Bahena on 11-21-2021 Platelets (Bld) [#/Vol] 140 10*3/uL 150-450 [facility] Protein Auto test strip (U) [Mass/Vol]Ordered By: Rafiq Bahena on 11-21-2021 Protein (U) [Mass/Vol] Negative Negative [facility] Protein [Mass/volume] in Ser um or PlasmaOrdered By: Rafiq Bahena on 11-21-2021 Protein [Mass/Vol] 5.5 g/dL 6.1-7.9 [facility] RBC Auto (Bld) [#/Vol]Ordere d By: Rafiq Bahena on 11-21-2021 RBC (Bld) [#/Vol] 4.31 10*6/uL 3.60-5.00 [facility] Serum or plasma alanine zapata otransferase measurement without P-5'-P (enzymatic activiOrdered By: Rafiq Bahena on 11-21-2021 ALT No additional P-5'-P [Catalytic activity/Vol] 17 U/L [facility] Serum or plasma albumin/glob ulin mass ratioOrdered By: Rafiq Bahena on 11-21-2021 Albumin/Globulin [Mass ratio] 1.6 {ratio} [facility] Serum or plasma alkaline brandy sphatase measurement (enzymatic activity/volume)Ordered By: Rafiq Bahena on 11-21-2021 ALP [Catalytic activity/Vol] 74 U/L 32-92 [facility] Serum or plasma anion gap de terminationOrdered By: Rafiq Bahena on 11-21-2021 Anion gap [Moles/Vol] 14.6 mmol/L 6.0-15.0 [facility] Serum or plasma aspartate am inotransferase measurement (enzymatic activity/volume)Ordered By: Rafiq Bahena on 11-21-2021 AST [Catalytic activity/Vol] 19 U/L [facility] Serum or plasma calcium lay urement (mass/volume)Ordered By: Rafiq Bahena on 11-21-2021 Calcium [Mass/Vol] 9.1 mg/dL 8.2-10.2 [facility] Serum or plasma chloride rosaline surement (moles/volume)Ordered By: Rafiq Bahena on 11-21-2021 Chloride [Moles/Vol] 107 mmol/L 95-114 [facility] Serum or plasma ethanol lay urement (mass/volume)Ordered By: Rafiq Bahena on 11-21-2021 Ethanol [Mass/Vol] mg/dL [facility] Ethanol [Mass/Vol] TNP [facility] Comment on above: Test not performed Serum or plasma glucose lay urement (mass/volume)Ordered By: Rafiq Bahena on 11-21-2021 Glucose [Mass/Vol] 124 mg/dL 70-100 [facility] Comment on above: ADA recommended refe rence rangeRandom Glucose Reference Range is dependent on time and content of last meal. Glucose of more than 200 mg/dL in a nonstressed, ambulatory subject supports the diagnosis of Diabetes Mellitus. Serum or plasma potassium me asurement (moles/volume)Ordered By: Rafiq Bahena on 11-21-2021 Potassium [Moles/Vol] 3.1 mmol/L 3.5-5.1 [facility] Serum or plasma sodium measu rement (moles/volume)Ordered By: Rafiq Bahena on 11-21-2021 Sodium [Moles/Vol] 142 mmol/L 136-146 [facility] Serum or plasma total biliru bin measurement (mass/volume)Ordered By: Rafiq Bahena on 11-21-2021 Bilirubin [Mass/Vol] 0.3 mg/dL 0.3-1.2 [facility] Serum or plasma total carbon dioxide measurement (moles/volume)Ordered By: Rafiq Bahena on 11-21-2021 CO2 [Moles/Vol] 23.5 mmol/L 22.0-30.0 [facility] Serum or plasma urea nitroge n measurement (mass/volume)Ordered By: Rafiq Bahena on 11-21-2021 Urea nitrogen [Mass/Vol] 49 mg/dL 9- [facility] Specific gravity Auto test s trip (U) [Rel density]Ordered By: Rafiq Bahena on 11-21-2021 Specific gravity (U) [Rel density] 1.010 1.001-1.030 [facility] Squamous epithelial cells de tection in urine sediment by light microscopyOrdered By: Rafiq Bahean 11-21-2021 Epithelial cells.squamous LM Ql (Urine sed) 1-2 [HPF] 0-2 [facility] TSH DL <= 0.005 mIU/L QnOrde red By: Rafiq Bahena on 11-21-2021 TSH Qn 2.40 m[IU]/L 0.45-5.33 [facility] Thyroxine (T4) free [Mass/vo lume] in Serum or PlasmaOrdered By: Rafiq Bahena on 11-21-2021 Free T4 [Mass/Vol] 0.68 ng/dL 0.61-1.12 [facility] Troponin I.cardiac [Mass/vol ume] in Serum or Plasma by High sensitivity methodOrdered By: Rafiq Bahena on 11-21-2021 Troponin I.cardiac High sensitivity method [Mass/Vol] 6 pg/mL 0-15 [facility] Urine bacteria detection by automated methodOrdered By: Rafiq Bahena on 11-21-2021 Bacteria Auto Ql (U) 2+ None Seen [facility] Urine clarity by refractomet ry automatedOrdered By: Rafiq Bahena on 11-21-2021 Clarity Refractometry automated (U) Clear Clear [facility] Urine cocaine detectionOrder ed By: Rafiq Bahena on 11-21-2021 Cocaine Ql (U) Negative Negative [facility] Urine glucose measurement by automated test strip (mass/volume)Ordered By: Rafiq Bahena on 11-21-2021 Glucose Auto test strip (U) [Mass/Vol] Normal mg/dL Normal [facility] Urine hemoglobin detection b y automated test stripOrdered By: Rafiq Bahena on 11-21-2021 Hemoglobin Auto test strip Ql (U) Negative Negative [facility] Urine leukocyte esterase det ection by automated test stripOrdered By: Rafiq Bahena on 11-21-2021 Leukocyte esterase Auto test strip Ql (U) 1+ Negative [facility] Urobilinogen Auto test strip (U) [Mass/Vol]Ordered By: Rafiq Bahena on 11-21-2021 Urobilinogen (U) [Mass/Vol] Normal mg/dL Normal [facility] pH Auto test strip (U)Ordere d By: Rafiq Bahena on 11-21-2021 pH (U) 5.5 [pH] 5.0-9.0 [facility] CBC AUTO DIFFon 10-24-2021 BASO # 0.1 103/ul Normal 0.0-0.1 [facility] Comment on above: Performed By: #### C BC #### [facility] [address] [address] [address] Grzegorz Wang Basophils/100 WBC (Bld) 0.6 % Normal 0.2-2.0 [facility] Comment on above: Performed By: #### C BC #### [facility] [address] [address] [address] Grzegorz Wang EO # 0.4 103/ul Normal 0.0-0.7 [facility] Comment on above: Performed By: #### C BC #### [facility] [address] [place] [address] Dr. Grzegorz Wang Eosinophils/100 WBC (Bld) 5.0 % Normal 0.9-7.0 [facility] Comment on above: Performed By: #### C BC #### [facility] [address] [place] [address] Dr. Grzegorz Wang Erythrocyte distribution width (RBC) [Ratio] 18.6 % Critically high 11.0-15.0 [facility] Comment on above: Performed By: #### C BC #### [facility] [address] [place] [address] Dr. Grzegorz Wang Hematocrit (Bld) [Volume fraction] 35.7 % Critically low 36.0-48.0 [facility] Comment on above: Performed By: #### C BC #### [facility] [address] [place] [address] Dr. Grzegorz Wang Hemoglobin (Bld) [Mass/Vol] 11.2 g/dL Critically low 12.0-16.0 [facility] Comment on above: Performed By: #### C BC #### [facility] [address] [place] [address] Dr. Grzegorz Wang IG # 0.04 10e3/ul Critically high 0.00-0.03 [facility] Comment on above: Performed By: #### C BC #### [facility] [address] [place] [address] Dr. Grzegorz Wang IG % 0.5 % Normal 0.0-0.5 [facility] Comment on above: Performed By: #### C BC #### [facility] [address] [place] [address] Dr. Grzegorz Wang LYMPH # 1.9 103/ul Normal 1.2-3.8 [facility] Comment on above: Performed By: #### C BC #### [facility] [address] [place] [address] Dr. Grzegorz Wang Lymphocytes/100 WBC (Bld) 22.2 % Normal 20.5-60.0 [facility] Comment on above: Performed By: #### C BC #### [facility] [address] [place] [address] Dr. Grzegorz Wang MANUAL DIFF REQ NO Normal [facility] Comment on above: Performed By: #### C BC #### [facility] [address] [place] [address] Dr. Grzegorz Wang MCH (RBC) [Entitic mass] 26.4 pg Critically low 26.7-34.0 [facility] Comment on above: Performed By: #### C BC #### [facility] [address] [place] [address] Dr. Grzegorz Wang MCHC (RBC) [Mass/Vol] 31.4 g/dL Normal 29.9-35.2 [facility] Comment on above: Performed By: #### C BC #### [facility] [address] [place] [address] Dr. Grzegorz Wang MCV (RBC) [Entitic vol] 84.2 fL Normal 81.0-99.0 [facility] Comment on above: Performed By: #### C BC #### [facility] [address] [place] [address] Dr. Grzegorz Wang MONO # 0.8 103/ul Normal 0.3-0.8 [facility] Comment on above: Performed By: #### C BC #### [facility] [address] [place] [address] Dr. Grzegorz Wang Monocytes/100 WBC (Bld) 10.0 % Normal 1.7-12.0 [facility] Comment on above: Performed By: #### C BC #### [facility] [address] [place] [address] Dr. Grzegorz Wang NEUT # 5.2 103/ul Normal 1.4-6.5 [facility] Comment on above: Performed By: #### C BC #### [facility] [address] [place] [address] Dr. Grzegorz Wang Neutrophils/100 WBC (Bld) 61.7 % Normal 43.0-75.0 [facility] Comment on above: Performed By: #### C BC #### [facility] [address] [place] [address] Dr. Grzegorz Wang Platelet mean volume (Bld) [Entitic vol] 11.8 fL Normal 9.5-13.5 [facility] Comment on above: Performed By: #### C BC #### [facility] [address] [place] [address] Dr. Grzegorz Wang PLT 219 103/ul Normal 150-450 [facility] Comment on above: Performed By: #### C BC #### [facility] [address] [place] [address] Dr. Grzegorz Wang RBC 4.24 106/ul Normal 4.20-5.40 [facility] Comment on above: Performed By: #### C BC #### [facility] [address] [place] [address] Dr. Grzegorz Wang WBC 8.4 103/ul Normal 4.0-11.0 [facility] Comment on above: Performed By: #### C BC #### [facility] [address] [place] [address] Dr. Grzegorz Wang PRBC LEUKOREDUCEDon 10-23-19 ABO and Rh group Nom (Bld) Cross Match Result Compatible Unit Blood Type O Pos Unit Number [id number] Status Information Transfused Product ID Red Blood Cells Product Code [id number] Cross Match Result Compatible Blood Bank Notes CALLED SARATH GLYNN RN ON [facility] 10/17/21 @ 0850 Unit Blood Type O Neg Unit Number [id number] Status Information Transfused Product ID Red Blood Cells Product Code [id number] Normal [facility] Comment on above: Performed By: #### C BC #### [facility] [address] [place] [address] Dr. Grzegorz Wang ABO and Rh group Nom (Bld) Cross Match Result Compatible Unit Blood Type O Neg Unit Number [id number] Status Information Transfused Product ID Red Blood Cells Product Code [id number] Cross Match Result Compatible Unit Blood Type O Neg Unit Number [id number] Status Information Transfused Product ID Red Blood Cells Product Code [id number] Normal [facility] Comment on above: Performed By: #### C BC #### [facility] [address] [place] [address] Dr. Grzegorz Wang CBC AUTO DIFFon 10-18-2021 BASO # 0.0 103/ul Normal 0.0-0.1 [facility] Comment on above: Performed By: #### C BC #### [facility] [address] [place] [address] Dr. Grzegorz Wang Basophils/100 WBC (Bld) 0.7 % Normal 0.2-2.0 [facility] Comment on above: Performed By: #### C BC #### [facility] [address] [place] [address] Dr. Grzegorz aWng EO # 0.2 103/ul Normal 0.0-0.7 [facility] Comment on above: Performed By: #### C BC #### [facility] [address] [place] [address] Dr. Grzegorz Wang Eosinophils/100 WBC (Bld) 2.9 % Normal 0.9-7.0 [facility] Comment on above: Performed By: #### C BC #### [facility] [address] [place] [address] Dr. Grzegorz Wang Erythrocyte distribution width (RBC) [Ratio] 17.8 % Critically high 11.0-15.0 [facility] Comment on above: Performed By: #### C BC #### [facility] [address] [place] [address] Dr. Grzegorz Wang Hematocrit (Bld) [Volume fraction] 30.1 % Critically low 36.0-48.0 [facility] Comment on above: Performed By: #### C BC #### [facility] [address] [place] [address] Dr. Grzegorz Wang Hemoglobin (Bld) [Mass/Vol] 9.6 g/dL Critically low 12.0-16.0 [facility] Comment on above: Performed By: #### C BC #### [facility] [address] [place] [address] Dr. Grzegorz Wang IG # 0.08 10e3/ul Critically high 0.00-0.03 [facility] Comment on above: Performed By: #### C BC #### [facility] [address] [place] [address] Dr. Grzegorz Wang IG % 1.3 % Critically high 0.0-0.5 [facility] Comment on above: Performed By: #### C BC #### [facility] [address] [place] [address] Dr. Grzegorz Wang LYMPH # 1.8 103/ul Normal 1.2-3.8 [facility] Comment on above: Performed By: #### C BC #### [facility] [address] [place] [address] Dr. Grzegorz Wang Lymphocytes/100 WBC (Bld) 29.4 % Normal 20.5-60.0 [facility] Comment on above: Performed By: #### C BC #### [facility] [address] [place] [address] Dr. Grzegorz Wang MANUAL DIFF REQ NO Normal [facility] Comment on above: Performed By: #### C BC #### [facility] [address] [place] [address] Dr. Grzegorz Wang MCH (RBC) [Entitic mass] 25.9 pg Critically low 26.7-34.0 [facility] Comment on above: Performed By: #### C BC #### [facility] [address] [place] [address] Dr. Grzegorz Wang MCHC (RBC) [Mass/Vol] 31.9 g/dL Normal 29.9-35.2 [facility] Comment on above: Performed By: #### C BC #### [facility] [address] [place] [address] Dr. Grzegorz Wang MCV (RBC) [Entitic vol] 81.4 fL Normal 81.0-99.0 [facility] Comment on above: Performed By: #### C BC #### [facility] [address] [place] [address] Dr. Grzegorz Wang MONO # 0.7 103/ul Normal 0.3-0.8 [facility] Comment on above: Performed By: #### C BC #### [facility] [address] [place] [address] Dr. Grzegorz Wang Monocytes/100 WBC (Bld) 11.9 % Normal 1.7-12.0 [facility] Comment on above: Performed By: #### C BC #### [facility] [address] [place] [address] Dr. Grzegorz Wang NEUT # 3.3 103/ul Normal 1.4-6.5 [facility] Comment on above: Performed By: #### C BC #### [facility] [address] [place] [address] Dr. Grzegorz Wang Neutrophils/100 WBC (Bld) 53.8 % Normal 43.0-75.0 [facility] Comment on above: Performed By: #### C BC #### [facility] [address] [place] [address] Dr. Grzegorz Wang Platelet mean volume (Bld) [Entitic vol] 10.5 fL Normal 9.5-13.5 [facility] Comment on above: Performed By: #### C BC #### [facility] [address] [place] [address] Dr. Grzegorz Wang PLT 206 103/ul Normal 150-450 [facility] Comment on above: Performed By: #### C BC #### [facility] [address] [place] [address] Dr. Grzegorz Wang RBC 3.70 106/ul Critically low 4.20-5.40 [facility] Comment on above: Performed By: #### C BC #### [facility] [address] [place] [address] Dr. Grzegorz Wang WBC 6.1 103/ul Normal 4.0-11.0 [facility] Comment on above: Performed By: #### C BC #### [facility] [address] [place] [address] Dr. Grzegorz Wang PROF CHEM 8 (BAS METB)on Anion gap [Moles/Vol] 9.6 mmol/L Normal [facility] Comment on above: Performed By: #### C BC #### [facility] [address] [address] [address] Grzegorz Wang Calcium [Mass/Vol] 8.5 mg/dL Normal 8.5-10.1 [facility] Comment on above: Performed By: #### C BC #### [facility] [address] [address] [address] Grzegorz Wang Chloride [Moles/Vol] 113 mmol/L Critically high 98-107 [facility] Comment on above: Performed By: #### C BC #### [facility] [address] [place] [address] Dr. Grzegorz Wang CO2 [Moles/Vol] 26.6 mmol/L Normal 21.0-32.0 [facility] Comment on above: Performed By: #### C BC #### [facility] [address] [place] [address] Dr. Grzegorz Wang Creatinine [Mass/Vol] 0.94 mg/dL Normal 0.55-1.02 [facility] Comment on above: Performed By: #### C BC #### [facility] [address] [place] [address] Dr. Grzegorz Wang EGFR-AF AZERBAIJANI >60 Normal >=60 [facility] Comment on above: Performed By: #### C BC #### [facility] [address] [address] [address] Grzegorz Wang EGFR-NON AF AZERBAIJANI 58 mL/min/1.73m2 Critically low >=60 [facility] Comment on above: Performed By: #### C BC #### [facility] [address] [address] [address] Grzegorz Wang Glucose [Mass/Vol] 97 mg/dL Normal 74-106 [facility] Comment on above: Performed By: #### C BC #### [facility] [address] [place] [address] Dr. Grzegorz Wang Potassium [Moles/Vol] 3.2 mmol/L Critically low 3.5-5.1 [facility] Comment on above: Performed By: #### C BC #### [facility] [address] [place] [address] Dr. Grzegorz Wang Sodium [Moles/Vol] 146 mmol/L Critically high 136-145 [facility] Comment on above: Performed By: #### C BC #### [facility] [address] [place] [address] Dr. Grzegorz Wang Urea nitrogen [Mass/Vol] 38.0 mg/dL Critically high 7.0-18.0 [facility] Comment on above: Performed By: #### C BC #### [facility] [address] [place] [address] Dr. Grzegorz Wang Urea nitrogen/Creatinine [Mass ratio] 40.4 mg/mg Normal [facility] Comment on above: Performed By: #### C BC #### [facility] [address] [place] [address] Dr. Grzegorz Wang CBC AUTO DIFFon 10-17-2021 BASO # 0.1 103/ul Normal 0.0-0.1 [facility] Comment on above: Performed By: #### C BC #### [facility] [address] [place] [address] Dr. Grzegorz Wang Basophils/100 WBC (Bld) 0.9 % Normal 0.2-2.0 [facility] Comment on above: Performed By: #### C BC #### [facility] [address] [place] [address] Dr. Grzegorz Wang EO # 0.2 103/ul Normal 0.0-0.7 [facility] Comment on above: Performed By: #### C BC #### [facility] [address] [place] [address] Dr. Grzegorz Wang Eosinophils/100 WBC (Bld) 3.1 % Normal 0.9-7.0 [facility] Comment on above: Performed By: #### C BC #### [facility] [address] [place] [address] Dr. Grzegorz Wang Erythrocyte distribution width (RBC) [Ratio] 17.6 % Critically high 11.0-15.0 [facility] Comment on above: Performed By: #### C BC #### [facility] [address] [place] [address] Dr. Grzegorz Wang Hematocrit (Bld) [Volume fraction] 35.7 % Critically low 36.0-48.0 [facility] Comment on above: Performed By: #### C BC #### [facility] [address] [place] [address] Dr. Grzegorz Wang Hemoglobin (Bld) [Mass/Vol] 11.5 g/dL Critically low 12.0-16.0 [facility] Comment on above: Result Comment: rcvd . blood Performed By: #### C BC #### [facility] [address] [place] [address] Dr. Grzegorz Wang IG # 0.18 10e3/ul Critically high 0.00-0.03 [facility] Comment on above: Performed By: #### C BC #### [facility] [address] [place] [address] Dr. Grzegorz Wang IG % 2.6 % Critically high 0.0-0.5 [facility] Comment on above: Performed By: #### C BC #### [facility] [address] [place] [address] Dr. Grzegorz Wang LYMPH # 1.5 103/ul Normal 1.2-3.8 [facility] Comment on above: Performed By: #### C BC #### [facility] [address] [place] [address] Dr. Grzegorz Wang Lymphocytes/100 WBC (Bld) 21.4 % Normal 20.5-60.0 [facility] Comment on above: Performed By: #### C BC #### [facility] [address] [place] [address] Dr. Grzegorz Wang MANUAL DIFF REQ NO Normal [facility] Comment on above: Performed By: #### C BC #### [facility] [address] [place] [address] Dr. Grzegorz Wang MCH (RBC) [Entitic mass] 26.0 pg Critically low 26.7-34.0 [facility] Comment on above: Performed By: #### C BC #### [facility] [address] [address] [address] Grzegorz Wang MCHC (RBC) [Mass/Vol] 32.2 g/dL Normal 29.9-35.2 [facility] Comment on above: Performed By: #### C BC #### [facility] [address] [place] [address] Dr. Grzegorz Wang MCV (RBC) [Entitic vol] 80.6 fL Critically low 81.0-99. 0 [facility] Comment on above: Performed By: #### C BC #### [facility] [address] [place] [address] Dr. Grzegorz Wang MONO # 0.7 103/ul Normal 0.3-0.8 [facility] Comment on above: Performed By: #### C BC #### [facility] [address] [place] [address] Dr. Grzegorz Wang Monocytes/100 WBC (Bld) 10.8 % Normal 1.7-12.0 [facility] Comment on above: Performed By: #### C BC #### [facility] [address] [place] [address] Dr. Grzegorz Wang NEUT # 4.2 103/ul Normal 1.4-6.5 [facility] Comment on above: Performed By: #### C BC #### [facility] [address] [place] [address] Dr. Grzegorz Wang Neutrophils/100 WBC (Bld) 61.2 % Normal 43.0-75.0 [facility] Comment on above: Performed By: #### C BC #### [facility] [address] [place] [address] Dr. Grzegorz Wang Platelet mean volume (Bld) [Entitic vol] 9.9 fL Normal 9.5-13.5 [facility] Comment on above: Performed By: #### C BC #### [facility] [address] [place] [address] Dr. Grzegorz Wang PLT 228 103/ul Normal 150-450 [facility] Comment on above: Performed By: #### C BC #### [facility] [address] [address] [address] Grzegorz Wang RBC 4.43 106/ul Normal 4.20-5.40 [facility] Comment on above: Performed By: #### C BC #### [facility] [address] [place] [address] Dr. Grzegorz Wang WBC 6.9 103/ul Normal 4.0-11.0 [facility] Comment on above: Performed By: #### C BC #### [facility] [address] [place] [address] Dr. Grzegorz Wang BASO # 0.0 103/ul Normal 0.0-0.1 [facility] Comment on above: Performed By: #### C BC #### [facility] [address] [place] [address] Dr. Grzegorz Wang Basophils/100 WBC (Bld) 0.8 % Normal 0.2-2.0 [facility] Comment on above: Performed By: #### C BC #### [facility] [address] [place] [address] Dr. Grzegorz Wang EO # 0.1 103/ul Normal 0.0-0.7 [facility] Comment on above: Performed By: #### C BC #### [facility] [address] [place] [address] Dr. Grzegorz Wang Eosinophils/100 WBC (Bld) 2.4 % Normal 0.9-7.0 [facility] Comment on above: Performed By: #### C BC #### [facility] [address] [place] [address] Dr. Grzegorz Wang Erythrocyte distribution width (RBC) [Ratio] 16.8 % Critically high 11.0-15.0 [facility] Comment on above: Performed By: #### C BC #### [facility] [address] [place] [address] Dr. Grzegorz Wang Hematocrit (Bld) [Volume fraction] 23.2 % Critically low 36.0-48.0 [facility] Comment on above: Performed By: #### C BC #### [facility] [address] [address] [address] Grzegorz Wang Hemoglobin (Bld) [Mass/Vol] 7.4 g/dL Critically low 12.0-16.0 [facility] Comment on above: Performed By: #### C BC #### [facility] [address] [address] [address] Grzegorz Wang IG # 0.05 10e3/ul Critically high 0.00-0.03 [facility] Comment on above: Performed By: #### C BC #### [facility] [address] [address] [address] Grzegorz Wang IG % 1.0 % Critically high 0.0-0.5 [facility] Comment on above: Performed By: #### C BC #### [facility] [address] [place] [address] Dr. Grzegorz Wang LYMPH # 1.4 103/ul Normal 1.2-3.8 [facility] Comment on above: Performed By: #### C BC #### [facility] [address] [place] [address] Dr. Grzegorz Wang Lymphocytes/100 WBC (Bld) 27.8 % Normal 20.5-60.0 [facility] Comment on above: Performed By: #### C BC #### [facility] [address] [place] [address] Dr. Grzegorz Wang MANUAL DIFF REQ NO Normal [facility] Comment on above: Performed By: #### C BC #### [facility] [address] [place] [address] Dr. Grzegorz Wang MCH (RBC) [Entitic mass] 25.6 pg Critically low 26.7-34.0 [facility] Comment on above: Performed By: #### C BC #### [facility] [address] [place] [address] Dr. Grzegorz Wang MCHC (RBC) [Mass/Vol] 31.9 g/dL Normal 29.9-35.2 [facility] Comment on above: Performed By: #### C BC #### [facility] [address] [address] [address] Grzegorz Wang MCV (RBC) [Entitic vol] 80.3 fL Critically low 81.0-99. 0 [facility] Comment on above: Performed By: #### C BC #### [facility] [address] [address] [address] Grzegorz Wang MONO # 0.6 103/ul Normal 0.3-0.8 [facility] Comment on above: Performed By: #### C BC #### [facility] [address] [address] [address] Grzegorz Wang Monocytes/100 WBC (Bld) 11.6 % Normal 1.7-12.0 [facility] Comment on above: Performed By: #### C BC #### [facility] [address] [place] [address] Dr. Grzegorz Wang NEUT # 2.8 103/ul Normal 1.4-6.5 [facility] Comment on above: Performed By: #### C BC #### [facility] [address] [address] [address] Grzegorz Wang Neutrophils/100 WBC (Bld) 56.4 % Normal 43.0-75.0 [facility] Comment on above: Performed By: #### C BC #### [facility] [address] [address] [address] Grzegorz Wang Platelet mean volume (Bld) [Entitic vol] 10.0 fL Normal 9.5-13.5 [facility] Comment on above: Performed By: #### C BC #### [facility] [address] [address] [address] Grzegorz Wang PLT 193 103/ul Normal 150-450 [facility] Comment on above: Performed By: #### C BC #### [facility] [address] [address] [address] Grzegorz Wang RBC 2.89 106/ul Critically low 4.20-5.40 [facility] Comment on above: Performed By: #### C BC #### [facility] [address] [address] [address] Grzegorz Wang WBC 4.9 103/ul Normal 4.0-11.0 [facility] Comment on above: Performed By: #### C BC #### [facility] [address] [place] [address] Dr. Grzegorz Wang PROF CHEM 8 (BAS METB)on Anion gap [Moles/Vol] 11.4 mmol/L Normal [facility] Comment on above: Performed By: #### A MY, LIPA #### [facility] [address] [place] [address] Dr. Grzegorz Wang Calcium [Mass/Vol] 8.3 mg/dL Critically low 8.5-10.1 [facility] Comment on above: Performed By: #### A MY, LIPA #### [facility] [address] [place] [address] Dr. Grzegorz Wang Chloride [Moles/Vol] 116 mmol/L Critically high 98-107 [facility] Comment on above: Performed By: #### A MY, LIPA #### [facility] [address] [place] [address] Dr. Grzegorz Wang CO2 [Moles/Vol] 21.1 mmol/L Normal 21.0-32.0 [facility] Comment on above: Performed By: #### A MY, LIPA #### [facility] [address] [place] [address] Dr. Grzegorz Wang Creatinine [Mass/Vol] 1.07 mg/dL Critically high 0.55-1.02 [facility] Comment on above: Performed By: #### A MY, LIPA #### [facility] [address] [place] [address] Dr. Grzegorz Wang EGFR-AF AZERBAIJANI >60 Normal >=60 [facility] Comment on above: Performed By: #### A MY, LIPA #### [facility] [address] [place] [address] Dr. Grzegorz Wang EGFR-NON AF AZERBAIJANI 50 mL/min/1.73m2 Critically low >=60 [facility] Comment on above: Performed By: #### A MY, LIPA #### [facility] [address] [address] [address] Grzegorz Wang Glucose [Mass/Vol] 90 mg/dL Normal 74-106 [facility] Comment on above: Performed By: #### A MY, LIPA #### [facility] [address] [place] [address] Dr. Grzegorz Wang Potassium [Moles/Vol] 3.5 mmol/L Normal 3.5-5.1 [facility] Comment on above: Performed By: #### A MY, LIPA #### [facility] [address] [place] [address] Dr. Grzegorz Wang Sodium [Moles/Vol] 145 mmol/L Normal 136-145 [facility] Comment on above: Performed By: #### A BRAYDEN, LIPA #### [facility] [address] [place] [address] Dr. Grzegorz Wang Urea nitrogen [Mass/Vol] 59.0 mg/dL Critically high 7.0-18.0 [facility] Comment on above: Performed By: #### A BRAYDEN, LIPA #### [facility] [address] [place] [address] Dr. Grzegorz Wang Urea nitrogen/Creatinine [Mass ratio] 55.1 mg/mg Normal [facility] Comment on above: Performed By: #### A BRAYDEN, LIPA #### [facility] [address] [place] [address] Dr. Grzegorz Wang AMYLASEon 10-16-2021 Amylase [Catalytic activity/Vol] 41 U/L Normal 25-115 [facility] Comment on above: Performed By: #### A BRAYDEN, LIPA #### [facility] [address] [place] [address] Dr. Grzegorz Wang CBC AUTO DIFFon 10-16-2021 BASO # 0.1 103/ul Normal 0.0-0.1 [facility] Comment on above: Performed By: #### A BRAYDEN, LIPA #### [facility] [address] [place] [address] Dr. Grzegorz Wang Basophils/100 WBC (Bld) 0.7 % Normal 0.2-2.0 [facility] Comment on above: Performed By: #### A PHIL OWEN #### [facility] [address] [place] [address] Dr. Grzegorz Wang EO # 0.2 103/ul Normal 0.0-0.7 [facility] Comment on above: Performed By: #### A PHIL OWEN #### [facility] [address] [place] [address] Dr. Grzegorz Wang Eosinophils/100 WBC (Bld) 2.4 % Normal 0.9-7.0 [facility] Comment on above: Performed By: #### A PHIL OWEN #### [facility] [address] [place] [address] Dr. Grzegorz Wang Erythrocyte distribution width (RBC) [Ratio] 17.1 % Critically high 11.0-15.0 [facility] Comment on above: Performed By: #### A PHIL OWEN #### [facility] [address] [place] [address] Dr. Grzegorz Wang Hematocrit (Bld) [Volume fraction] 26.0 % Critically low 36.0-48.0 [facility] Comment on above: Performed By: #### A PHIL OWEN #### [facility] [address] [place] [address] Dr. Grzegorz Wang Hemoglobin (Bld) [Mass/Vol] 8.4 g/dL Critically low 12.0-16.0 [facility] Comment on above: Performed By: #### A BRAYDEN LIPA #### [facility] [address] [place] [address] Dr. Grzegorz Wang IG # 0.03 10e3/ul Normal 0.00-0.03 [facility] Comment on above: Performed By: #### A PHIL OWEN #### [facility] [address] [place] [address] Dr. Grzegorz Wang IG % 0.4 % Normal 0.0-0.5 [facility] Comment on above: Performed By: #### A MY, LIPA #### [facility] [address] [address] [address] Grzegorz Wang LYMPH # 1.9 103/ul Normal 1.2-3.8 [facility] Comment on above: Performed By: #### A MY, LIPA #### [facility] [address] [address] [address] Grzegorz Wang Lymphocytes/100 WBC (Bld) 27.3 % Normal 20.5-60.0 [facility] Comment on above: Performed By: #### A MY, LIPA #### [facility] [address] [address] [address] Grzegorz Wang MANUAL DIFF REQ NO Normal [facility] Comment on above: Performed By: #### A BRAYDEN, LIPA #### [facility] [address] [place] [address] Dr. Grzegorz Wang MCH (RBC) [Entitic mass] 26.0 pg Critically low 26.7-34.0 [facility] Comment on above: Performed By: #### A BRAYDNE, LIPA #### [facility] [address] [place] [address] Dr. Grzegorz Wang MCHC (RBC) [Mass/Vol] 32.3 g/dL Normal 29.9-35.2 [facility] Comment on above: Performed By: #### A BRAYDEN, LIPA #### [facility] [address] [place] [address] Dr. Grzegorz Wang MCV (RBC) [Entitic vol] 80.5 fL Critically low 81.0-99. 0 [facility] Comment on above: Performed By: #### A MY, LIPA #### [facility] [address] [place] [address] Dr. Grzegorz Wang MONO # 0.7 103/ul Normal 0.3-0.8 [facility] Comment on above: Performed By: #### A BRAYDEN, LIPA #### [facility] [address] [place] [address] Dr. Grzegorz Wang Monocytes/100 WBC (Bld) 10.5 % Normal 1.7-12.0 [facility] Comment on above: Performed By: #### A MY, LIPA #### [facility] [address] [address] [address] Grzegorz Wang NEUT # 4.1 103/ul Normal 1.4-6.5 [facility] Comment on above: Performed By: #### A MY, LIPA #### [facility] [address] [place] [address] Dr. Grzegorz Wang Neutrophils/100 WBC (Bld) 58.7 % Normal 43.0-75.0 [facility] Comment on above: Performed By: #### A MY, LIPA #### [facility] [address] [place] [address] Dr. Grzegorz Wang Platelet mean volume (Bld) [Entitic vol] 10.4 fL Normal 9.5-13.5 [facility] Comment on above: Performed By: #### A BRAYDEN LIPA #### [facility] [address] [place] [address] Dr. Grzegorz Wang PLT 217 103/ul Normal 150-450 [facility] Comment on above: Performed By: #### A BRAYDEN LIPA #### [facility] [address] [place] [address] Dr. Grzegorz Wang RBC 3.23 106/ul Critically low 4.20-5.40 [facility] Comment on above: Performed By: #### A BRAYDEN, LIPA #### [facility] [address] [place] [address] Dr. Grzegorz Wang WBC 7.1 103/ul Normal 4.0-11.0 [facility] Comment on above: Performed By: #### A MY, LIPA #### [facility] [address] [place] [address] Dr. Grzegorz Wang BASO # 0.0 103/ul Normal 0.0-0.1 [facility] Comment on above: Performed By: #### C BC #### [facility] [address] [place] [address] Dr. Grzegorz Wang Basophils/100 WBC (Bld) 0.5 % Normal 0.2-2.0 [facility] Comment on above: Performed By: #### C BC #### [facility] [address] [address] [address] Grzegorz Wang EO # 0.1 103/ul Normal 0.0-0.7 [facility] Comment on above: Performed By: #### C BC #### [facility] [address] [address] [address] Grzegorz Wang Eosinophils/100 WBC (Bld) 0.8 % Critically low 0.9-7.0 [facility] Comment on above: Performed By: #### C BC #### [facility] [address] [place] [address] Dr. Grzegorz Wang Erythrocyte distribution width (RBC) [Ratio] 16.8 % Critically high 11.0-15.0 [facility] Comment on above: Performed By: #### C BC #### [facility] [address] [place] [address] Dr. Grzegorz Wang Hematocrit (Bld) [Volume fraction] 19.5 % Critically low 36.0-48.0 [facility] Comment on above: Performed By: #### C BC #### [facility] [address] [place] [address] Dr. Grzegorz Wang Hemoglobin (Bld) [Mass/Vol] 6.0 g/dL Critically low 12.0-16.0 [facility] Comment on above: Result Comment: repe ated Performed By: #### C BC #### [facility] [address] [place] [address] Dr. Grzegorz Wang IG # 0.05 10e3/ul Critically high 0.00-0.03 [facility] Comment on above: Performed By: #### C BC #### [facility] [address] [place] [address] Dr. Grzegorz Wang IG % 0.6 % Critically high 0.0-0.5 [facility] Comment on above: Performed By: #### C BC #### [facility] [address] [place] [address] Dr. Grzegorz Wang LYMPH # 1.8 103/ul Normal 1.2-3.8 [facility] Comment on above: Performed By: #### C BC #### [facility] [address] [place] [address] Dr. Grzegorz Wang Lymphocytes/100 WBC (Bld) 21.6 % Normal 20.5-60.0 [facility] Comment on above: Performed By: #### C BC #### [facility] [address] [place] [address] Dr. Grzegorz Wang MANUAL DIFF REQ NO Normal [facility] Comment on above: Performed By: #### C BC #### [facility] [address] [place] [address] Dr. Grzegorz Wang MCH (RBC) [Entitic mass] 23.4 pg Critically low 26.7-34.0 [facility] Comment on above: Performed By: #### C BC #### [facility] [address] [place] [address] Dr. Grzegorz Wang MCHC (RBC) [Mass/Vol] 30.6 g/dL Normal 29.9-35.2 [facility] Comment on above: Performed By: #### C BC #### [facility] [address] [place] [address] Dr. Grzegorz Wang MCV (RBC) [Entitic vol] 76.6 fL Critically low 81.0-99. 0 [facility] Comment on above: Performed By: #### C BC #### [facility] [address] [place] [address] Dr. Grzegorz Wang MONO # 0.6 103/ul Normal 0.3-0.8 [facility] Comment on above: Performed By: #### C BC #### [facility] [address] [place] [address] Dr. Grzegorz Wang Monocytes/100 WBC (Bld) 7.3 % Normal 1.7-12.0 [facility] Comment on above: Performed By: #### C BC #### [facility] [address] [place] [address] Dr. Grzegorz Wang NEUT # 5.9 103/ul Normal 1.4-6.5 [facility] Comment on above: Performed By: #### C BC #### [facility] [address] [address] [address] Grzegorz Wang Neutrophils/100 WBC (Bld) 69.2 % Normal 43.0-75.0 [facility] Comment on above: Performed By: #### C BC #### [facility] [address] [address] [address] Grzegorz Wang Platelet mean volume (Bld) [Entitic vol] 10.5 fL Normal 9.5-13.5 [facility] Comment on above: Performed By: #### C BC #### [facility] [address] [address] [address] Grzegorz Wang PLT 288 103/ul Normal 150-450 [facility] Comment on above: Performed By: #### C BC #### [facility] [address] [place] [address] Dr. Grzegorz Wang RBC 2.52 106/ul Critically low 4.20-5.40 [facility] Comment on above: Performed By: #### C BC #### [facility] [address] [address] [address] Grzegorz Wang WBC 8.5 103/ul Normal 4.0-11.0 [facility] Comment on above: Performed By: #### C BC #### [facility] [address] [address] [address] ABD/PELVIS WO CONon [...] LYNN OLSON Date: 2021-10-16 13:53 Normal [facility]on SARS-CoV-2 (COVID-19) RNA SIOBHAN+probe Ql (Unsp spec) Not detected Normal NOT DETECTED [facility] Comment on above: Result Comment: When [...] for this test is supported by the [place] of [employer] and Human Service's declaration that [...] used). Performed By: #### E RUR #### [facility] [address] [place] [address] Dr. Grzegorz Wang ER URINE PROFILEon 2 Bilirubin Ql (U) Negative Normal NEGATIVE [facility] Comment on above: Performed By: #### A BRAYDEN LIPA #### [facility] [address] [address] [address] Grzegorz Wang Clarity (U) CLEAR Normal CLEAR [facility] Comment on above: Performed By: #### A MY, LIPA #### [facility] [address] [place] [address] Dr. Grzegorz Wang Color (U) LT. YELLOW Normal YELLOW [facility] Comment on above: Performed By: #### A BRAYDEN, LIPA #### [facility] [address] [address] [address] Grzegorz Carrasco micrscopic examination will be performed if indicated. Normal [facility] Comment on above: Performed By: #### A MY, LIPA #### [facility] [address] [address] [address] Grzegorz Wang Glucose Ql (U) Negative Normal NEGATIVE [facility] Comment on above: Performed By: #### A MY, LIPA #### [facility] [address] [place] [address] Dr. Grzegorz Wang Hemoglobin Ql (U) SMALL Abnormal NEGATIVE [facility] Comment on above: Performed By: #### A MY, LIPA #### [facility] [address] [place] [address] Dr. Grzegorz Wang Ketones Ql (U) Negative Normal NEGATIVE [facility] Comment on above: Performed By: #### A MY, LIPA #### [facility] [address] [place] [address] Dr. Grzegorz Wang LEUKOCYTES TRACE Abnormal NEGATIVE [facility] Comment on above: Performed By: #### A MY, LIPA #### [facility] [address] [place] [address] Dr. Grzegorz Wang Nitrite Ql (U) Negative Normal NEGATIVE [facility] Comment on above: Performed By: #### A MY, LIPA #### [facility] [address] [place] [address] Dr. Grzegorz Wang pH (U) 5.5 [pH] Normal 5-9 [facility] Comment on above: Performed By: #### A MY, LIPA #### [facility] [address] [place] [address] Dr. Grzegorz Wang SPEC GRAVITY 1.005 Normal 1.005-<=1.0 25 [facility] Comment on above: Performed By: #### A MY, LIPA #### [facility] [address] [place] [address] Dr. Grzegorz Wang UA PROTEIN Negative Normal NEGATIVE/ TRACE [facility] Comment on above: Performed By: #### A BRAYDEN, LIPA #### [facility] [address] [place] [address] Dr. Grzegorz Wang UR MICRO IND INDICATED Normal [facility] Comment on above: Performed By: #### A MY, LIPA #### [facility] [address] [place] [address] Dr. Grzegorz Wang Urobilinogen Qn (U) 0.2 {Lidya'U}/dL Normal 0.2 - 1. 0 [facility] Comment on above: Performed By: #### A MY, LIPA #### [facility] [address] [place] [address] Dr. Grzegorz Wang LIPASEon 10-16-2021 Lipase [Catalytic activity/Vol] 77.0 U/L Normal 73.0-393.0 [facility] Comment on above: Performed By: #### A BRAYDEN LIPA #### [facility] [address] [place] [address] Dr. Grzegorz Wang OCC BLD IMMUNO SCREENon OCCULT BLOOD Positive Abnormal NEGATIVE [facility] Comment on above: Performed By: #### A BRAYDEN LIPA #### [facility] [address] [place] [address] Dr. Grzegorz Wang PROF 14(COMP METB)on 022 Albumin [Mass/Vol] 3.4 g/dL Normal 3.4-5.0 [facility] Comment on above: Performed By: #### C BC #### [facility] [address] [place] [address] Dr. Grzegorz Wang Albumin/Globulin [Mass ratio] 1.2 {ratio} Normal [facility] Comment on above: Performed By: #### C BC #### [facility] [address] [place] [address] Dr. Grzegorz Wang ALP [Catalytic activity/Vol] 77 U/L Normal 46-116 [facility] Comment on above: Performed By: #### C BC #### [facility] [address] [place] [address] Dr. Grzegorz Wang ALT [Catalytic activity/Vol] 18 U/L Normal 14-59 [facility] Comment on above: Performed By: #### C BC #### [facility] [address] [address] [address] Grzegorz Wang Anion gap [Moles/Vol] 15.3 mmol/L Normal Th [facility] Comment on above: Performed By: #### C BC #### [facility] [address] [address] [address] Grzegorz Wang AST [Catalytic activity/Vol] 17 U/L Normal 15-37 [facility] Comment on above: Performed By: #### C BC #### [facility] [address] [address] [address] Grzegorz Wang Bilirubin [Mass/Vol] 0.4 mg/dL Normal 0.2-1.0 [facility] Comment on above: Performed By: #### C BC #### [facility] [address] [address] [address] Grzegorz Wang Calcium [Mass/Vol] 8.5 mg/dL Normal 8.5-10.1 [facility] Comment on above: Performed By: #### C BC #### [facility] [address] [address] [address] Grzegorz Wang Chloride [Moles/Vol] 104 mmol/L Normal 98-107 [facility] Comment on above: Performed By: #### C BC #### [facility] [address] [address] [address] Grzegorz Wang CO2 [Moles/Vol] 21.2 mmol/L Normal 21.0-32.0 [facility] Comment on above: Performed By: #### C BC #### [facility] [address] [address] [address] Grzegorz Wang Creatinine [Mass/Vol] 1.68 mg/dL Critically high 0.55-1.02 [facility] Comment on above: Performed By: #### C BC #### [facility] [address] [address] [address] Grzegorz Wang EGFR-AF AZERBAIJANI 36 mL/min/1.73m2 Critically low >=60 [facility] Comment on above: Performed By: #### C BC #### [facility] [address] [address] [address] Grzegorz Wang EGFR-NON AF AZERBAIJANI 30 mL/min/1.73m2 Critically low >=60 [facility] Comment on above: Performed By: #### C BC #### [facility] [address] [address] [address] Grzegorz Wang Globulin (S) [Mass/Vol] 2.8 g/dL Normal T [facility] Comment on above: Performed By: #### C BC #### [facility] [address] [address] [address] Grzegorz Wang Glucose [Mass/Vol] 101 mg/dL Normal 74-106 [facility] Comment on above: Performed By: #### C BC #### [facility] [address] [address] [address] Grzegorz Wang Potassium [Moles/Vol] 3.5 mmol/L Normal 3.5-5.1 [facility] Comment on above: Performed By: #### C BC #### [facility] [address] [address] [address] Grzegorz Wang Protein [Mass/Vol] 6.2 g/dL Critically low 6.4-8.2 Th [facility] Comment on above: Performed By: #### C BC #### [facility] [address] [address] [address] Grzegorz Wang Sodium [Moles/Vol] 137 mmol/L Normal 136-145 [facility] Comment on above: Performed By: #### C BC #### [facility] [address] [address] [address] Grzegorz Wang Urea nitrogen [Mass/Vol] 83.0 mg/dL Critically high 7.0-18.0 [facility] Comment on above: Result Comment: repe ated Performed By: #### C BC #### [facility] [address] [address] [address] Grzegorz Wang Urea nitrogen/Creatinine [Mass ratio] 49.4 mg/mg Normal [facility] Comment on above: Performed By: #### C BC #### [facility] [address] [place] [address] Dr. Grzegorz Wang PROTIMEon 10-16-2021 INR Coag (PPP) [Relative time] 0.99 {INR} Normal [facility] Comment on above: Performed By: #### P T, PTT #### [facility] [address] [place] [address] Dr. Grzegorz Wang INR GUIDELINES SEE BELOW Normal [facility] Comment on above: Result Comment: DENTON RED INR: 2.0 - 3.0 CONDITIONS NOT LISTED BELOW 2.5 - 3.5 FOR PROSTHETIC HEART VALVE REPLACEMENT 2.5 - 3.5 RECURRENT THROMBOSIS Performed By: #### P T, PTT #### [facility] [address] [place] [address] Dr. Grzegorz Wang PT Coag (PPP) [Time] 10.7 s Normal 9.0-11.6 [facility] Comment on above: Performed By: #### P T, PTT #### [facility] [address] [place] [address] Dr. Grzegorz Wang PTTon 10-16-2021 aPTT Coag (Bld) [Time] 23.5 s Normal 22.3-36.2 [facility] Comment on above: Performed By: #### P T, PTT #### [facility] [address] [place] [address] Dr. Grzegorz Wang TYPE AND SCREENon 10-16-2021 TYPE AND SCREEN Negative Normal [facility] Comment on above: Performed By: #### C BC #### [facility] [address] [place] [address] Dr. Grzegorz Wang URINE MICROSCOPIC ONLYon BACTERIA NONE SEEN Normal NONE SEEN [facility] Comment on above: Performed By: #### A MY LIPA #### [facility] [address] [place] [address] Dr. Grzegorz Wang Bacteria identified Cx Nom (U) NOT INDICATED Normal [facility] Comment on above: Performed By: #### A MY LIPA #### [facility] [address] [place] [address] Dr. Grzegorz Wang CAST NONE SEEN Normal NONE SEEN [facility] Comment on above: Performed By: #### A MY, LIPA #### [facility] [address] [place] [address] Dr. Grzegorz Wang Crystals LM Nom (Urine sed) NONE SEEN Normal NONE SEEN [facility] Comment on above: Performed By: #### A MY, LIPA #### [facility] [address] [place] [address] Dr. Grzegorz Wang Epithelial cells LM Ql (Urine sed) RARE Normal NONE SEEN /RARE [facility] Comment on above: Performed By: #### A MY, LIPA #### [facility] [address] [place] [address] Dr. Grzegorz Wang MUCOUS NONE SEEN Normal NONE SEEN [facility] Comment on above: Performed By: #### A BRAYDEN, LIPA #### [facility] [address] [place] [address] Dr. Grzegorz Wang RBC NONE SEEN Abnormal 0-2 [facility] Comment on above: Performed By: #### A BRAYDEN, LIPA #### [facility] [address] [place] [address] Dr. Grzegorz Wang WBC NONE SEEN Normal NONE SEEN [facility] Comment on above: Performed By: #### A BRAYDEN, LIPA #### [facility] [address] [place] [address] Dr. Grzegorz Wang BNPon 09-02-2021 Natriuretic peptide B (Bld) [Mass/Vol] 140.0 pg/mL Normal <=900.0 [facility] Comment on above: Performed By: #### C BC #### [facility] [address] [place] [address] Dr. Grzegorz Wang CARDIAC BAMBI ADMITon 022 CK [Catalytic activity/Vol] 121 U/L Normal 26-192 [facility] Comment on above: Performed By: #### C BC #### [facility] [address] [place] [address] Dr. Grzegorz Wang CK.MB [Mass/Vol] 2.44 ng/mL Normal <=3.60 [facility] Comment on above: Performed By: #### C BC #### [facility] [address] [place] [address] Dr. Grzegorz Wang HSTROP 9.8 pg/mL Normal 4.0-51.3 [facility] Comment on above: Result Comment: CUT- OFF POINTS HAVE BEEN ESTABLISHED BASED ON THE FOURTH UNIVERSAL DEFINITIONS OF MYOCARDIAL INFARCTION. THE UPPER REFERENCE LIMIT (URL) OF TROPONIN, DEFINED THE 99TH PERCENTILE OF cTnI DISTRIBUTION IN A REFERENCE POPULATION, HAS BEEN CONFIRMED THE DECISION THRESHOLD FOR LA DIAGNOSIS. Performed By: #### C BC #### [facility] [address] [address] [address] Grzegorz Wang MITZI 109 ng/mL Critically high 9-82 [facility] Comment on above: Performed By: #### C BC #### [facility] [address] [place] [address] Dr. Grzegorz Wang CBC AUTO DIFFon 09-02-2021 BASO # 0.0 103/ul Normal 0.0-0.1 [facility] Comment on above: Performed By: #### C BC #### [facility] [address] [place] [address] Dr. Grzegorz Wang Basophils/100 WBC (Bld) 0.5 % Normal 0.2-2.0 [facility] Comment on above: Performed By: #### C BC #### [facility] [address] [place] [address] Dr. Grzegorz Wang EO # 0.1 103/ul Normal 0.0-0.7 [facility] Comment on above: Performed By: #### C BC #### [facility] [address] [place] [address] Dr. Grzegorz Wang Eosinophils/100 WBC (Bld) 3.1 % Normal 0.9-7.0 [facility] Comment on above: Performed By: #### C BC #### [facility] [address] [place] [address] Dr. Grzegorz Wang Erythrocyte distribution width (RBC) [Ratio] 16.0 % Critically high 11.0-15.0 [facility] Comment on above: Performed By: #### C BC #### [facility] [address] [place] [address] Dr. Grzegorz Wang Hematocrit (Bld) [Volume fraction] 32.0 % Critically low 36.0-48.0 [facility] Comment on above: Performed By: #### C BC #### [facility] [address] [place] [address] Dr. Grzegorz Wang Hemoglobin (Bld) [Mass/Vol] 10.1 g/dL Critically low 12.0-16.0 [facility] Comment on above: Performed By: #### C BC #### [facility] [address] [place] [address] Dr. Grzegorz Wang IG # 0.01 10e3/ul Normal 0.00-0.03 [facility] Comment on above: Performed By: #### C BC #### [facility] [address] [place] [address] Dr. Grzegorz Wang IG % 0.3 % Normal 0.0-0.5 [facility] Comment on above: Performed By: #### C BC #### [facility] [address] [place] [address] Dr. Grzegorz Wang LYMPH # 1.7 103/ul Normal 1.2-3.8 [facility] Comment on above: Performed By: #### C BC #### [facility] [address] [place] [address] Dr. Grzegorz Wang Lymphocytes/100 WBC (Bld) 43.1 % Normal 20.5-60.0 [facility] Comment on above: Performed By: #### C BC #### [facility] [address] [place] [address] Dr. Grzegorz Wang MANUAL DIFF REQ NO Normal [facility] Comment on above: Performed By: #### C BC #### [facility] [address] [place] [address] Dr. Grzegorz Wang MCH (RBC) [Entitic mass] 23.9 pg Critically low 26.7-34.0 [facility] Comment on above: Performed By: #### C BC #### [facility] [address] [address] [address] Grzegorz Wang MCHC (RBC) [Mass/Vol] 31.6 g/dL Normal 29.9-35.2 [facility] Comment on above: Performed By: #### C BC #### [facility] [address] [address] Dr. Grzegorz Wang MCV (RBC) [Entitic vol] 75.8 fL Critically low 81.0-99. 0 [facility] Comment on above: Performed By: #### C BC #### [facility] [address] [place] [address] Dr. Grzegorz Wang MONO # 0.4 103/ul Normal 0.3-0.8 [facility] Comment on above: Performed By: #### C BC #### [facility] [address] [place] [address] Dr. Grzegorz Wang Monocytes/100 WBC (Bld) 9.7 % Normal 1.7-12.0 [facility] Comment on above: Performed By: #### C BC #### [facility] [address] [place] [address] Dr. Grzegorz Wang NEUT # 1.7 103/ul Normal 1.4-6.5 [facility] Comment on above: Performed By: #### C BC #### [facility] [address] [place] [address] Dr. Grzegorz Wang Neutrophils/100 WBC (Bld) 43.3 % Normal 43.0-75.0 [facility] Comment on above: Performed By: #### C BC #### [facility] [address] [place] [address] Dr. Grzegroz Wang Platelet mean volume (Bld) [Entitic vol] 10.1 fL Normal 9.5-13.5 [facility] Comment on above: Performed By: #### C BC #### [facility] [address] [place] [address] Dr. Grzegorz Wang PLT 179 103/ul Normal 150-450 [facility] Comment on above: Performed By: #### C BC #### [facility] [address], [place] [address] Dr. Grzegorz Wang RBC 4.22 106/ul Normal 4.20-5.40 [facility] Comment on above: Performed By: #### C BC #### [facility] [address], [place] [address] Dr. Grzegorz Wang WBC 3.8 103/ul Critically low 4.0-11.0 [facility] Comment on above: Performed By: #### C BC #### [facility] [address], [place] [address] CSPINE WO CONon [...] JEAN-PIERRE GIRALDO Date: 2021-09-02 19:33 Normal [facility] CT STROKE HEAD WOon 09-03-19 22 [...] JEAN-PIERRE GIRALDO Date: 2021-09-02 19:29 Normal [facility]12 SARS-CoV-2 (COVID-19) RNA SIOBHAN+probe Ql (Unsp spec) Detected Critically abnormal NOT DETECTED [facility] Comment on above: Result Comment: This test is not yet approved or cleared by the [place] FDA. When there are no FDA-approved or cleared tests available, and other criteria are met, FDA can make tests available under an emergency access mechanism called an Emergency Use Authorization (EUA). The EUA for this test is supported by the [place] of Health and Human Service's declaration that [...] used). Performed By: #### C BC #### [facility] [address] [place] [address] Dr. Grzegorz Wang DRUG SCREEN RAPID (URINE)on 09-02-2021 AMP Negative Normal NEGATIVE [facility] Comment on above: Performed By: #### E RUR #### [facility] [address] [place] [address] [address] Grzegorz Wang BAR Negative Normal NEGATIVE [facility] Comment on above: Performed By: #### E RUR #### [facility] [address] [address] [address] Grzegorz Wang BUP Negative Normal NEGATIVE [facility] Comment on above: Performed By: #### E RUR #### [facility] [address] [address] [address] Grzegorz Wang BZO Negative Normal NEGATIVE [facility] Comment on above: Performed By: #### E RUR #### [facility] [address] [place] [address] Dr. Grzegorz Wang MITZY Negative Normal NEGATIVE [facility] Comment on above: Performed By: #### E RUR #### [facility] [address] [place] [address] Dr. Grzegorz Wang CUT-OFFS SEE BELOW Normal [facility] Comment on above: Result Comment: AMP (Amphetamine): 500ng/mL, BAR (Barbituates): 200 ng/mL, BZO (Benzodiazepines): 150 ng/mL, BUP (Buprenorphine): 10 ng/mL, MITZY (Cocaine): 150 ng/mL, mAMP (Methamphetamine): 500 ng/mL, MTD (Methadone): 200 ng/mL, OPI (Opiates): 100 ng/mL, OXY (Oxycodone): 100 ng/mL, PCP (Phencyclidine): 25 ng/mL, PPX (Propoxyphene): 300 ng/mL, THC (Cannabinoids): 50 ng/mL, TCA (Trycyclic Antidepressants): 300 ng/mL Performed By: #### E RUR #### [facility] [address] [place] [address] Dr. Grzegorz Wagn DRUG CUT HEADER DRUG CLASS TEST SYSTEM CUT-OFF CONCENTRATIONS ARE FOLLOWS: Normal [facility] Comment on above: Performed By: #### E RUR #### [facility] [address] [place] [address] Dr. Grzegorz Wang mAMP Negative Normal NEGATIVE [facility] Comment on above: Performed By: #### E RUR #### [facility] [address] [place] [address] Dr. Grzegorz Wang MTD Negative Normal NEGATIVE [facility] Comment on above: Performed By: #### E RUR #### [facility] [address] [place] [address] Dr. Grzegorz Wang OPI Negative Normal NEGATIVE [facility] Comment on above: Performed By: #### E RUR #### [facility] [address] [place] [address] Dr. Grzegorz Wang OXY Negative Normal NEGATIVE [facility] Comment on above: Performed By: #### E RUR #### [facility] [address] [place] [address] Dr. Grzegorz Wang PCP Negative Normal NEGATIVE [facility] Comment on above: Performed By: #### E RUR #### [facility] [address] [place] [address] Dr. Grzegorz Wang PPX Negative Normal NEGATIVE [facility] Comment on above: Performed By: #### E RUR #### [facility] [address] [place] [address] Dr. Grzegorz Wang TCA Positive Abnormal NEGATIVE [facility] Comment on above: Performed By: #### E RUR #### [facility] [address] [place] [address] Dr. Grzegorz Wang THC Negative Normal NEGATIVE [facility] Comment on above: Performed By: #### E RUR #### [facility] [address] [place] [address] Dr. Grzegorz Wang LACTATE/LACTIC ACIDon 2021 Lactate [Moles/Vol] 0.7 mmol/L Normal 0.4-1.9 [facility] Comment on above: Performed By: #### E RUR #### [facility] [address] [place] [address] Dr. Grzegorz Wang PROF 14(COMP METB)on 022 Albumin [Mass/Vol] 3.1 g/dL Critically low 3.4-5.0 [facility] [place] Comment on above: Performed By: #### C BC #### [facility] [address] [place] [address] Dr. Grzegorz Wang Albumin/Globulin [Mass ratio] 1.0 {ratio} Normal [facility] Comment on above: Performed By: #### C BC #### [facility] [address] [place] [address] Dr. Grzegorz Wang ALP [Catalytic activity/Vol] 81 U/L Normal 46-116 [facility] Comment on above: Performed By: #### C BC #### [facility] [address] [place] [address] Dr. Grzegorz Wang ALT [Catalytic activity/Vol] 21 U/L Normal 14-59 [facility] Comment on above: Performed By: #### C BC #### [facility] [address] [address] [address] Grzegorz Wang Anion gap [Moles/Vol] 11.9 mmol/L Normal [facility] Comment on above: Performed By: #### C BC #### [facility] [address] [address] [address] Grzegorz Wang AST [Catalytic activity/Vol] 21 U/L Normal 15-37 [facility] Comment on above: Performed By: #### C BC #### [facility] [address] [address] [address] Grzegorz Wang Bilirubin [Mass/Vol] 0.5 mg/dL Normal 0.2-1.0 [facility] Comment on above: Performed By: #### C BC #### [facility] [address] [address] [address] Grzegorz Wang Calcium [Mass/Vol] 8.3 mg/dL Critically low 8.5-10.1 [facility] Comment on above: Performed By: #### C BC #### [facility] [address] [address] [address] Grzegorz Wang Chloride [Moles/Vol] 100 mmol/L Normal 98-107 [facility] Comment on above: Performed By: #### C BC #### [facility] [address] [address] [address] Grzegorz Wang CO2 [Moles/Vol] 25.6 mmol/L Normal 21.0-32.0 [facility] Comment on above: Performed By: #### C BC #### [facility] [address] [address] [address] Grzegorz Wang Creatinine [Mass/Vol] 1.39 mg/dL Critically high 0.55-1.02 [facility] Comment on above: Performed By: #### C BC #### [facility] [address] [address] [address] Grzegorz Wang EGFR-AF AZERBAIJANI 45 mL/min/1.73m2 Critically low >=60 [facility] Comment on above: Performed By: #### C BC #### [facility] [address] [address] [address] Grzegorz Wang EGFR-NON AF AZERBAIJANI 37 mL/min/1.73m2 Critically low >=60 [facility] Comment on above: Performed By: #### C BC #### [facility] [address] [address] [address] Grzegorz Wang Globulin (S) [Mass/Vol] 3.1 g/dL Normal T [facility] Comment on above: Performed By: #### C BC #### [facility] [address] [address] [address] Grzegorz Wang Glucose [Mass/Vol] 96 mg/dL Normal 74-106 [facility] Comment on above: Performed By: #### C BC #### [facility] [address] [address] [address] Grzegorz Wang Potassium [Moles/Vol] 3.5 mmol/L Normal 3.5-5.1 [facility] Comment on above: Performed By: #### C BC #### [facility] [address] [address] [address] Grzegorz Wang Protein [Mass/Vol] 6.2 g/dL Critically low 6.4-8.2 [facility] Comment on above: Performed By: #### C BC #### [facility] [address] [address] [address] Grzegorz Wang Sodium [Moles/Vol] 134 mmol/L Critically low 136-145 [facility] Comment on above: Performed By: #### C BC #### [facility] [address] [address] [address] Grzegorz Wang Urea nitrogen [Mass/Vol] 33.0 mg/dL Critically high 7.0-18.0 [facility] Comment on above: Performed By: #### C BC #### [facility] [address] [address] [address] Grzegorz Wang Urea nitrogen/Creatinine [Mass ratio] 23.7 mg/mg Normal [facility] Comment on above: Performed By: #### C BC #### [facility] [address] [address] [address] Grzegorz Wang PROTIMEon 09-02-2021 INR Coag (PPP) [Relative time] {INR} Normal [facility] Comment on above: Performed By: #### A PHIL OWEN #### [facility] [address] [place] [address] Dr. Grzegorz Wang INR GUIDELINES SEE BELOW Normal [facility] Comment on above: Result Comment: DENTON RED INR: 2.0 - 3.0 CONDITIONS NOT LISTED BELOW 2.5 - 3.5 FOR PROSTHETIC HEART VALVE REPLACEMENT 2.5 - 3.5 RECURRENT THROMBOSIS Performed By: #### A PHIL OWEN #### [facility] [address] [place] [address] Dr. Grzegorz Wang PT Coag (PPP) [Time] 10.0 s Normal 9.0-11.6 [facility] Comment on above: Performed By: #### A PHIL OWEN #### [facility] [address] [place] [address] Dr. Grzegorz Wang PTTon 09-02-2021 aPTT Coag (Bld) [Time] 32.1 s Normal 22.3-36.2 [facility] Comment on above: Performed By: #### A PHIL OWEN #### [facility] [address] [place] [address] Dr. Grzegorz Wang XR CHEST 1 Von [...] by: NATACHA CERNA Date: 2021-09-02 19:18 Normal [facility] XR hand RT min 3V*on 022 XR hand RT min 3V* [facility] [employer] Other XR hand RT min 3V* [facility] [employer] Other XR hand RT min 3V* [address] [facility] [employer] Other XR hand RT min 3V* JAIRO Manjarrez [address] [facility] Other XR hand RT min 3V* XRay Report [employer] Other XR hand RT min 3V* Signed [employer] Other XR hand RT min 3V* Patient: Ozzie Gifford MR#: [id number] [facility] Other XR hand RT min 3V* [address] [facility] Other XR hand RT min 3V* : 1950 Acct:[id number] [employer] Other XR hand RT min 3V* Age/Sex: 71 / F ADM Date: 08/02/21 [facility] Other XR hand RT min 3V* Loc: [facility] Room: Type : [facility] [employer] Other XR hand RT min 3V* Attending Dr: Neeraj Arrington MD [employer] Other XR hand RT min 3V* Copies to: Susie Arrington MD [employer] Other XR hand RT min 3V* Ordering Provider: Susie Arrington MD [employer] Other XR hand RT min 3V* Date of Service: 08/02/21 [facility] Other XR hand RT min 3V* XR/XR hand RT min 3V*: Closed nondisplaced fracture of proximal phalanx [employer] Other XR hand RT min 3V* of right mi [facility] Other XR hand RT min 3V* 4 viewsRIGHT hand plain film [facility] Other XR hand RT min 3V* COMPARISON:07/12/21 [employer] Other XR hand RT min 3V* HISTORY:Status post RIGHT long finger proximal phalanx fracture [facility] Other XR hand RT min 3V* No bony alignment stable. No interval healing. Extensive degeneration. [employer] Other XR hand RT min 3V* XR/XR hand RT min 3V* [facility] Other XR hand RT min 3V* IMPRESSION:Stable findings [facility] Other XR hand RT min 3V* Impression dictated by: Husam Martinez M.D.08/02/2021 12:13 PM [facility] Other XR hand RT min 3V* Dictation Location: [place] [address] [facility] Other XR hand RT min 3V* Transcribed By: PWS 08/02/21 1213 [facility] Other XR hand RT min 3V* Dictated By: Husam Martinez DO 08/02/21 [facility] Other XR hand RT min 3V* Signed By: [employer] Other XR hand RT min 3V* 08/02/[address] [place] [address] [employer] Other BNPon 07-29-2021 Natriuretic peptide B (Bld) [Mass/Vol] 192.0 pg/mL Normal <=900.0 [facility] Comment on above: Performed By: #### E RUR #### [facility] [address] [place] [address] Dr. Grzegorz Wang CARDIAC BAMBI ADMITon 022 CK [Catalytic activity/Vol] 82 U/L Normal 26-192 [facility] Comment on above: Performed By: #### E RUR #### [facility] [address] [place] [address] Dr. Grzegorz Wang CK.MB [Mass/Vol] 2.40 ng/mL Normal <=3.60 [facility] Comment on above: Performed By: #### E RUR #### [facility] [address] [place] [address] Dr. Grzegorz Wang HSTROP 4.7 pg/mL Normal 4.0-51.3 [facility] Comment on above: Result Comment: CUT- OFF POINTS HAVE BEEN ESTABLISHED BASED ON THE FOURTH UNIVERSAL DEFINITIONS OF MYOCARDIAL INFARCTION. THE UPPER REFERENCE LIMIT (URL) OF TROPONIN, DEFINED THE 99TH PERCENTILE OF cTnI DISTRIBUTION IN A REFERENCE POPULATION, HAS BEEN CONFIRMED THE DECISION THRESHOLD FOR LA DIAGNOSIS. Performed By: #### E RUR #### [facility] [address] [place] [address] Dr. Grzegorz Wang MITZI 70 ng/mL Normal 9-82 [facility] Comment on above: Performed By: #### E RUR #### [facility] [address] [place] [address] Dr. Grzegorz Wang CBC AUTO DIFFon 07-29-2021 BASO # 0.0 103/ul Normal 0.0-0.1 [facility] Comment on above: Performed By: #### E RUR #### [facility] [address] [place] [address] Dr. Grzegorz Wang Basophils/100 WBC (Bld) 0.7 % Normal 0.2-2.0 [facility] Comment on above: Performed By: #### E RUR #### [facility] [address] [place] [address] Dr. Grzegorz Wang EO # 0.2 103/ul Normal 0.0-0.7 [facility] Comment on above: Performed By: #### E RUR #### [facility] [address] [place] [address] Dr. Grzegorz Wang Eosinophils/100 WBC (Bld) 4.1 % Normal 0.9-7.0 [facility] Comment on above: Performed By: #### E RUR #### [facility] [address] [place] [address] Dr. Grzegorz Wang Erythrocyte distribution width (RBC) [Ratio] 15.7 % Critically high 11.0-15.0 [facility] Comment on above: Performed By: #### E RUR #### [facility] [address] [place] [address] Dr. Grzegorz Wang Hematocrit (Bld) [Volume fraction] 32.6 % Critically low 36.0-48.0 [facility] Comment on above: Performed By: #### E RUR #### [facility] [address] [place] [address] Dr. Grzegorz Wang Hemoglobin (Bld) [Mass/Vol] 9.9 g/dL Critically low 12.0-16.0 [facility] Comment on above: Performed By: #### E RUR #### [facility] [address] [place] [address] Dr. Grzegorz Wang IG # 0.02 10e3/ul Normal 0.00-0.03 [facility] Comment on above: Performed By: #### E RUR #### [facility] [address] [place] [address] Dr. Grzegorz Wang IG % 0.3 % Normal 0.0-0.5 [facility] Comment on above: Performed By: #### E RUR #### [facility] [address] [place] [address] Dr. Grzegorz Wang LYMPH # 1.7 103/ul Normal 1.2-3.8 [facility] Comment on above: Performed By: #### E RUR #### [facility] [address] [place] [address] Dr. Grzegorz Wang Lymphocytes/100 WBC (Bld) 28.0 % Normal 20.5-60.0 [facility] Comment on above: Performed By: #### E RUR #### [facility] [address] [place] [address] Dr. Grzegorz Wang MANUAL DIFF REQ NO Normal [facility] Comment on above: Performed By: #### E RUR #### [facility] [address] [place] [address] Dr. Grzegorz Wang MCH (RBC) [Entitic mass] 23.9 pg Critically low 26.7-34.0 [facility] Comment on above: Performed By: #### E RUR #### [facility] [address] [place] [address] Dr. Grzegorz Wang MCHC (RBC) [Mass/Vol] 30.4 g/dL Normal 29.9-35.2 [facility] Comment on above: Performed By: #### E RUR #### [facility] [address] [place] [address] Dr. Grzegorz Wang MCV (RBC) [Entitic vol] 78.7 fL Critically low 81.0-99. 0 [facility] Comment on above: Performed By: #### E RUR #### [facility] [address] [place] [address] Dr. Grzegorz Wang MONO # 0.6 103/ul Normal 0.3-0.8 [facility] Comment on above: Performed By: #### E RUR #### [facility] [address] [place] [address] Dr. Grzegorz Wang Monocytes/100 WBC (Bld) 10.4 % Normal 1.7-12.0 [facility] Comment on above: Performed By: #### E RUR #### [facility] [address] [place] [address] Dr. Grzegorz Wang NEUT # 3.3 103/ul Normal 1.4-6.5 [facility] Comment on above: Performed By: #### E RUR #### [facility] [address] [place] [address] Dr. Grzegorz Wang Neutrophils/100 WBC (Bld) 56.5 % Normal 43.0-75.0 [facility] Comment on above: Performed By: #### E RUR #### [facility] [address] [place] [address] Dr. Grzegorz Wang Platelet mean volume (Bld) [Entitic vol] 10.2 fL Normal 9.5-13.5 [facility] Comment on above: Performed By: #### E RUR #### [facility] [address] [place] [address] Dr. Grzegorz Wang PLT 216 103/ul Normal 150-450 [facility] Comment on above: Performed By: #### E RUR #### [facility] [address] [place] [address] Dr. Grzegorz Wang RBC 4.14 106/ul Critically low 4.20-5.40 [facility] Comment on above: Performed By: #### E RUR #### [facility] [address] [place] [address] Dr. Grzegorz Wang WBC 5.9 103/ul Normal 4.0-11.0 [facility] Comment on above: Performed By: #### E RUR #### [facility] [address] [place] [address] HEAD WO CONon [...] DORIAN GREENE Date: 2021-07-29 15:01 Normal [facility] ER URINE PROFILEon 2 Bilirubin Ql (U) Negative Normal NEGATIVE [facility] Comment on above: Performed By: #### E RUR #### [facility] [address] [place] [address] Dr. Grzegorz Wang Clarity (U) CLEAR Normal CLEAR [facility] Comment on above: Performed By: #### E RUR #### [facility] [address] [place] [address] Dr. Grzegorz Wang Color (U) LT. YELLOW Normal YELLOW [facility] Comment on above: Performed By: #### E RUR #### [facility] [address] [place] [address] Dr. Grzegorz Wang ERUAHD A micrscopic examination will be performed if indicated. Normal [facility] Comment on above: Performed By: #### E RUR #### [facility] [address] [place] [address] Dr. Grzegorz Wang Glucose Ql (U) Negative Normal NEGATIVE [facility] Comment on above: Performed By: #### E RUR #### [facility] [address] [place] [address] Dr. Grzegorz Wang Hemoglobin Ql (U) Negative Normal NEGATIVE [facility] Comment on above: Performed By: #### E RUR #### [facility] [address] [place] [address] Dr. Grzegorz Wang Ketones Ql (U) Negative Normal NEGATIVE [facility] Comment on above: Performed By: #### E RUR #### [facility] [address] [place] [address] Dr. Grzegorz Wang LEUKOCYTES Negative Normal NEGATIVE [facility] Comment on above: Performed By: #### E RUR #### [facility] [address] [place] [address] Dr. Grzegorz Wang Nitrite Ql (U) Negative Normal NEGATIVE [facility] Comment on above: Performed By: #### E RUR #### [facility] [address] [place] [address] Dr. Grzegorz Wang pH (U) 5.5 [pH] Normal 5-9 [facility] Comment on above: Performed By: #### E RUR #### [facility] [address] [place] [address] Dr. Grzegorz Wang SPEC GRAVITY 1.010 Normal 1.005-<=1.0 25 [facility] Comment on above: Performed By: #### E RUR #### [facility] [address] [place] [address] Dr. Grzegorz Wang UA PROTEIN Negative Normal NEGATIVE/ TRACE [facility] Comment on above: Performed By: #### E RUR #### [facility] [address] [place] [address] Dr. Grzegorz Wang UR MICRO IND NOT INDICATED Normal [facility] Comment on above: Performed By: #### E RUR #### [facility] [address] [place] [address] Dr. Grzegorz Wang Urobilinogen Qn (U) 0.2 {Lidya'U}/dL Normal 0.2 - 1. 0 [facility] Comment on above: Performed By: #### E RUR #### [facility] [address] [place] [address] Dr. Grzegorz Wang PROF 14(COMP METB)on 022 Albumin [Mass/Vol] 3.1 g/dL Critically low 3.4-5.0 [facility] Comment on above: Performed By: #### E RUR #### [facility] [address] [place] [address] Dr. Grzegorz Wang Albumin/Globulin [Mass ratio] 1.0 {ratio} Normal [facility] Comment on above: Performed By: #### E RUR #### [facility] [address] [place] [address] Dr. Grzegorz Wang ALP [Catalytic activity/Vol] 99 U/L Normal 46-116 [facility] Comment on above: Performed By: #### E RUR #### [facility] [address] [place] [place] [address] Dr. Grzegorz Wang ALT [Catalytic activity/Vol] 18 U/L Normal 14-59 [facility] Comment on above: Performed By: #### E RUR #### [facility] [address] [place] [address] Dr. Grzegorz Wang Anion gap [Moles/Vol] 10.5 mmol/L Normal Th [facility] [place] Comment on above: Performed By: #### E RUR #### [facility] [address] [place] [address] Dr. Grzegorz Wang AST [Catalytic activity/Vol] 14 U/L Critically low 15-37 [facility] Comment on above: Performed By: #### E RUR #### [facility] [address] [place] [address] Dr. Grzegorz Wang Bilirubin [Mass/Vol] 0.3 mg/dL Normal 0.2-1.0 [facility] Comment on above: Performed By: #### E RUR #### [facility] [address] [address] [address] Grzegorz Wang Calcium [Mass/Vol] 8.5 mg/dL Normal 8.5-10.1 [facility] Comment on above: Performed By: #### E RUR #### [facility] [address] [address] [address] Grzegorz Wang Chloride [Moles/Vol] 108 mmol/L Critically high 98-107 [facility] Comment on above: Performed By: #### E RUR #### [facility] [address] [place] [address] Dr. Grzegorz Wang CO2 [Moles/Vol] 26.0 mmol/L Normal 21.0-32.0 [facility] Comment on above: Performed By: #### E RUR #### [facility] [address] [place] [address] Dr. Grzegorz Wang Creatinine [Mass/Vol] 1.07 mg/dL Critically high 0.55-1.02 [facility] Comment on above: Performed By: #### E RUR #### [facility] [address] [place] [address] Dr. Grzegorz Wang EGFR-AF AZERBAIJANI >60 Normal >=60 [facility] Comment on above: Performed By: #### E RUR #### [facility] [address] [place] [address] Dr. Grzegorz Wang EGFR-NON AF AZERBAIJANI 50 mL/min/1.73m2 Critically low >=60 [facility] Comment on above: Performed By: #### E RUR #### [facility] [address] [place] [address] Dr. Grzegorz Wang Globulin (S) [Mass/Vol] 3.0 g/dL Normal T [facility] Comment on above: Performed By: #### E RUR #### [facility] [address] [place] [address] Dr. Grzegorz Wang Glucose [Mass/Vol] 87 mg/dL Normal 74-106 [facility] Comment on above: Performed By: #### E RUR #### [facility] [address] [address] [address] Grzegorz Wang Potassium [Moles/Vol] 3.5 mmol/L Normal 3.5-5.1 [facility] Comment on above: Performed By: #### E RUR #### [facility] [address] [address] [address] Grzegorz Wang Protein [Mass/Vol] 6.1 g/dL Critically low 6.4-8.2 Th [facility] [place] Comment on above: Performed By: #### E RUR #### [facility] [address] [address] [address] Grzegorz Wang Sodium [Moles/Vol] 141 mmol/L Normal 136-145 [facility] Comment on above: Performed By: #### E RUR #### [facility] [address] [address] [address] Grzegorz Wang Urea nitrogen [Mass/Vol] 22.0 mg/dL Critically high 7.0-18.0 [facility] Comment on above: Performed By: #### E RUR #### [facility] [address] [address] [address] Grzegorz Wang Urea nitrogen/Creatinine [Mass ratio] 20.6 mg/mg Normal [facility] Comment on above: Performed By: #### E RUR #### [facility] [address] [place] [address] Dr. Grzegorz Wang PROTIMEon 07-29-2021 INR Coag (PPP) [Relative time] 0.99 {INR} Normal [facility] Comment on above: Performed By: #### P TT, PT #### [facility] [address] [place] [address] Dr. Grzegorz Wang INR GUIDELINES SEE BELOW Normal [facility] Comment on above: Result Comment: DENTON RED INR: 2.0 - 3.0 CONDITIONS NOT LISTED BELOW 2.5 - 3.5 FOR PROSTHETIC HEART VALVE REPLACEMENT 2.5 - 3.5 RECURRENT THROMBOSIS Performed By: #### P TT, PT #### [facility] [address] [place], [place] [address] Dr. Grzegorz Wang PT Coag (PPP) [Time] 10.7 s Normal 9.0-11.6 [facility] Comment on above: Performed By: #### P TT, PT #### [facility] [address], [place] [address] Dr. Grzegorz Wang PTTon 07-29-2021 aPTT Coag (Bld) [Time] 31.0 s Normal 22.3-36.2 [facility] Comment on above: Performed By: #### P TT, PT #### [facility] [address] [place], [place] [address] Dr. Grzegorz Wang XR CHEST 1 Von [...] by: NATACHA TO Date: 2021-07-29 14:54 Normal [facility] XR hand RT min 3V*on 022 XR hand RT min 3V* [facility] Other XR hand RT min 3V* [facility] [employer] Other XR hand RT min 3V* [address] [place] [address] [facility] Other XR hand RT min 3V* [place] [address] [facility] Other XR hand RT min 3V* XRay Report [facility] Other XR hand RT min 3V* Signed [facility] Other XR hand RT min 3V* Patient: Ozzie Gifford MR#: [id number] [facility] Other XR hand RT min 3V* [id number] [facility] Other XR hand RT min 3V* : 1950 Acct:[id number] [facility] Other XR hand RT min 3V* Age/Sex: 71 / F ADM Date: 07/12/21 [facility] Other XR hand RT min 3V* Loc: SOXD Room: Type : [facility] Other XR hand RT min 3V* Attending Dr: Neeraj Arrington MD [facility] Other XR hand RT min 3V* Ordering Provider: Susie Arrington MD [facility] Other XR hand RT min 3V* Date of Service: 07/12/21 [facility] Other XR hand RT min 3V* XR/XR hand RT min 3V*: Right hand pain [facility] Other XR hand RT min 3V* Copies to: Susie Arrington MD [facility] Other XR hand RT min 3V* XR hand RT min 3V* 07/12/2021 10:43 AM [facility] Other XR hand RT min 3V* SIGNS AND SYMPTOMS: Fall, pain in right hand greatest in the right thumb with swelling [facility] Other XR hand RT min 3V* PROTOCOL: Frontal, lateral, and oblique radiographs of the right hand [facility] Other XR hand RT min 3V* COMPARISON: None [facility] Other XR hand RT min 3V* FINDINGS: [facility] Other XR hand RT min 3V* There is mild narrowing of the distal interphalangeal joints. There is a mild flexion deformity of [facility] Other XR hand RT min 3V* the fifth proximal interphalangeal joint. There is mild narrowing of the first metacarpophalangeal [facility] Other XR hand RT min 3V* junction with mild t o moderate degenerative change at the first carpometacarpal joint. There is no [facility] Other XR hand RT min 3V* evidence of acute displaced fracture. No evidence of dislocation. [facility] Other XR hand RT min 3V* XR/XR hand RT min 3V* [facility] Other XR hand RT min 3V* IMPRESSION: [facility] Other XR hand RT min 3V* No evidence of fracture. [facility] Other XR hand RT min 3V* Degenerative changes are noted, greatest in the thumb. [facility] Other XR hand RT min 3V* There is a mild flexion deformity of the fifth proximal interphalangeal joint. [facility] Other XR hand RT min 3V* Impression dictated by: Bambi Sung M.D.07/12/2021 12:29 PM [facility] Other XR hand RT min 3V* Dictation Location: [place] [address] [facility] Other XR hand RT min 3V* Transcribed By: SHYANN 07/12/21 1229 [facility] Other XR hand RT min 3V* Dictated By: Bambi Sung II, MD 07/12/21 1228 [facility] Other XR hand RT min 3V* Signed By: [facility] Other XR hand RT min 3V* 07/12/[address] [place] [address] [facility] Other CBC AUTO DIFFon 05-08-2021 BASO # 0.1 103/ul Normal 0.0-0.1 [facility] Comment on above: Performed By: #### C BC #### [facility] [address] [address] [address] Grzegorz Wang Basophils/100 WBC (Bld) 0.8 % Normal 0.2-2.0 [facility] Comment on above: Performed By: #### C BC #### [facility] [address] [address] [address] Grzegorz Wang EO # 0.3 103/ul Normal 0.0-0.7 [facility] Comment on above: Performed By: #### C BC #### [facility] [address] [place] [address] Dr. Grzegorz Wang Eosinophils/100 WBC (Bld) 3.8 % Normal 0.9-7.0 [facility] Comment on above: Performed By: #### C BC #### [facility] [address] [place] [address] Dr. Grzegorz Wang Erythrocyte distribution width (RBC) [Ratio] 14.1 % Normal 11.0-15.0 [facility] Comment on above: Performed By: #### C BC #### [facility] [address] [place] [address] Dr. Grzegorz Wang Hematocrit (Bld) [Volume fraction] 34.4 % Critically low 36.0-48.0 [facility] Comment on above: Performed By: #### C BC #### [facility] [address] [place] [address] Dr. Grzegorz Wang Hemoglobin (Bld) [Mass/Vol] 10.4 g/dL Critically low 12.0-16.0 [facility] Comment on above: Performed By: #### C BC #### [facility] [address] [place] [address] Dr. Grzegorz Wang IG # 0.04 10e3/ul Critically high 0.00-0.03 [facility] Comment on above: Performed By: #### C BC #### [facility] [address] [place] [address] Dr. Grzegorz Wang IG % 0.5 % Normal 0.0-0.5 [facility] Comment on above: Performed By: #### C BC #### [facility] [address] [address] [address] Grzegorz Wang LYMPH # 1.7 103/ul Normal 1.2-3.8 [facility] Comment on above: Performed By: #### C BC #### [facility] [address] [address] [address] Grzegorz Wang Lymphocytes/100 WBC (Bld) 22.1 % Normal 20.5-60.0 [facility] Comment on above: Performed By: #### C BC #### [facility] [address] [address] [address] Grzegorz Wang MANUAL DIFF REQ NO Normal [facility] Comment on above: Performed By: #### C BC #### [facility] [address] [place] [address] Dr. Grzegorz Wang MCH (RBC) [Entitic mass] 25.6 pg Critically low 26.7-34.0 [facility] Comment on above: Performed By: #### C BC #### [facility] [address] [place] [address] Dr. Grzegorz Wang MCHC (RBC) [Mass/Vol] 30.2 g/dL Normal 29.9-35.2 [facility] Comment on above: Performed By: #### C BC #### [facility] [address] [place] [address] Dr. Grzegorz Wang MCV (RBC) [Entitic vol] 84.5 fL Normal 81.0-99.0 [facility] Comment on above: Performed By: #### C BC #### [facility] [address] [address] [address] Grzegorz Wang MONO # 0.8 103/ul Normal 0.3-0.8 [facility] Comment on above: Performed By: #### C BC #### [facility] [address] [place] [address] Dr. Grzegorz Wang Monocytes/100 WBC (Bld) 11.1 % Normal 1.7-12.0 [facility] Comment on above: Performed By: #### C BC #### [facility] [address] [address] [address] Grzegorz Wang NEUT # 4.7 103/ul Normal 1.4-6.5 [facility] Comment on above: Performed By: #### C BC #### [facility] [address] [address] [address] Grzegorz Wang Neutrophils/100 WBC (Bld) 61.7 % Normal 43.0-75.0 [facility] Comment on above: Performed By: #### C BC #### [facility] [address] [place] [address] Dr. Grzegorz Wang Platelet mean volume (Bld) [Entitic vol] 10.6 fL Normal 9.5-13.5 [facility] Comment on above: Performed By: #### C BC #### [facility] [address] [place] [address] Dr. Grzegorz Wang PLT 281 103/ul Normal 150-450 [facility] Comment on above: Performed By: #### C BC #### [facility] [address] [place] [address] Dr. Grzegorz Wang RBC 4.07 106/ul Critically low 4.20-5.40 [facility] Comment on above: Performed By: #### C BC #### [facility] [address] [place] [address] Dr. Grzegorz Wang WBC 7.6 103/ul Normal 4.0-11.0 [facility] Comment on above: Performed By: #### C BC #### [facility] [address] [place] [address] CHEST WO CONon [...] LUCI MARADIAGA Date: 2021-05-08 18:59 Normal [facility] CT HEAD WO CONon 05-08-2021 CT [...] MITZI LOWRY Date: 2021-05-08 17:27 Normal [facility] CT NECK ST WO CONon 05-09-19 22 [...] The parotid glands, parapharyngeal spaces and left mental health nurse spaces appear normal. A tiny amount of air in the venous system in the right parapharyngeal space and in the venous system of the right mental health nurse space. A tiny amount air in probably [...] space and venous system in the right mental health nurse space, likely iatrogenic. No abnormal fluid collection. Prior right carotid endarterectomy. 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 Electronically authenticated by: BASIM CABAN Date: 2021-05-08 19:23 Normal [facility] PROF CHEM 8 (BAS METB)on Anion gap [Moles/Vol] 12.3 mmol/L Normal [facility] Comment on above: Performed By: #### A PHIL OWEN #### [facility] [address] [address] [address] Grzegorz Wang Calcium [Mass/Vol] 8.4 mg/dL Critically low 8.5-10.1 [facility] Comment on above: Performed By: #### A MY, LIPA #### [facility] [address] [address] [address] Grzegorz Wang Chloride [Moles/Vol] 108 mmol/L Critically high 98-107 [facility] Comment on above: Performed By: #### A MY, LIPA #### [facility] [address] [place] [address] Dr. Grzegorz Wang CO2 [Moles/Vol] 25.9 mmol/L Normal 22.0-30.0 [facility] Comment on above: Performed By: #### A MY, LIPA #### [facility] [address] [place] [address] Dr. Grzegorz Wang Creatinine [Mass/Vol] 1.18 mg/dL Critically high 0.52-1.04 [facility] Comment on above: Performed By: #### A BRAYDEN LIPA #### [facility] [address] [place] [address] Dr. Grzegorz Wang EGFR-AF AZERBAIJANI 55 mL/min/1.73m2 Critically low >=60 [facility] Comment on above: Performed By: #### A BRAYDEN, LIPA #### [facility] [address] [place] [address] Dr. Grzegorz Wang EGFR-NON AF AZERBAIJANI 45 mL/min/1.73m2 Critically low >=60 [facility] Comment on above: Performed By: #### A MY, LIPA #### [facility] [address] [place] [address] Dr. Grzegorz Wang Glucose [Mass/Vol] 84 mg/dL Normal 74-106 [facility] Comment on above: Performed By: #### A MY, LIPA #### [facility] [address] [place] [address] Dr. Grzegorz Wang Potassium [Moles/Vol] 3.2 mmol/L Critically low 3.4-5.0 [facility] Comment on above: Performed By: #### A MY, LIPA #### [facility] [address] [place] [address] Dr. Grzegorz Wang Sodium [Moles/Vol] 143 mmol/L Normal 137-145 [facility] Comment on above: Performed By: #### A PHIL OWEN #### [facility] [address] [address] [address] Grzegorz Wang Urea nitrogen [Mass/Vol] 35.0 mg/dL Critically high 7.0-18.0 [facility] Comment on above: Performed By: #### A PHIL OWEN #### [facility] [address] [address] [address] Grzegorz Wang Urea nitrogen/Creatinine [Mass ratio] 29.7 mg/mg Normal [facility] Comment on above: Performed By: #### A PHIL OWEN #### [facility] [address] [address] [address] Grzegorz Wang XR PELVIS 1_2 VIEWSon [...] LUCI MARADIAGA Date: 2021-05-08 17:24 Normal [facility] XR wrist LT min 3V*on 2021 XR wrist LT min 3V* [facility] Other XR wrist LT min 3V* [facility] [employer] Other XR wrist LT min 3V* [address] [place] [address] [employer] Other XR wrist LT min 3V* [place] [address] [facility] Other XR wrist LT min 3V* XRay Report [facility] Other XR wrist LT min 3V* Signed [facility] Other XR wrist LT min 3V* Patient: Ozzie Gifford MR#: [id number] [facility] Other XR wrist LT min 3V* [address] [facility] Other XR wrist LT min 3V* : 1950 Acct:[id number] [facility] Other XR wrist LT min 3V* Age/Sex: 70 / F ADM Date: 05/03/21 [facility] Other XR wrist LT min 3V* Loc: SOXD Room: Type : [facility] Other XR wrist LT min 3V* Attending Dr: Neeraj Arrington MD [facility] Other XR wrist LT min 3V* Ordering Provider: Susie Arrington MD [facility] Other XR wrist LT min 3V* Date of Service: 05/03/21 [facility] Other XR wrist LT min 3V* XR/XR wrist LT min 3V*: Other specified postprocedural states [facility] Other XR wrist LT min 3V* Copies to: Susie Arrington MD [facility] Other XR wrist LT min 3V* 4 viewsLEFT wrist plain film [facility] Other XR wrist LT min 3V* COMPARISON:03/31/21 [facility] Other XR wrist LT min 3V* HISTORY:Status post ORIF distal radius fracture [facility] Other XR wrist LT min 3V* No hardware failure. Adequate bony alignment. Healing distal radius fracture noted. [facility] Other XR wrist LT min 3V* XR/XR wrist LT min 3V* [facility] Other XR wrist LT min 3V* IMPRESSION:Healing distal radius fracture. No hardware failure. [facility] Other XR wrist LT min 3V* Impression dictated by: Husam Martinez M.D.05/03/2021 2:12 PM [facility] Other XR wrist LT min 3V* Dictation Location: [place] [address] [facility] Other XR wrist LT min 3V* Transcribed By: PWS 05/03/21 1412 [facility] Other XR wrist LT min 3V* Dictated By: Husam Martinez DO 05/03/21 1411 [facility] Other XR wrist LT min 3V* Signed By: [facility] Other XR wrist LT min 3V* 05/03/21 [address] [facility] Other XR FOREARM LT 2 VIEWSon 03-14 [...] by: MARYSE LANGFORD Date: 2021-03-30 20:17 Normal [facility] Cardiovascular Lab Reporton 03-03-2020 Cardiovascular Lab Report [facility]zz[facility] MR #: [id number] Department of Physician: Donna Henderson M.D. Division of Service Date: 03/03/2020 Cardiology Birthdate: 1950 Adult Cardiovascular Room #: [place] [address] Cardiovascular Laboratory Report FINAL IMPRESSION: 1. Moderate [...] femoral vein and artery was obtained. A 6-Afghan 11 cm sheath was inserted in each. Difficulty exchanging the micropuncture kit for a 6-Afghan sheath encountered for the arterial access site; [...] physiological assessment of the coronary lesions. A 6-Afghan XB 3.5 guide catheter was advanced over [...] trauma. The guide catheter was removed. A 5-Afghan JR4 guide catheter was advanced in and [...] A Jacklyn Doty M.D. Date Dict: 03/03/2020/11:44 Luna/Jacklyn Doty M.D. Date Trans: 03/03/2020 12:28 P/antonio [id number] cc: Nicolas Carrillo M.D. Heart Failure/ Transplant [facility] [address] [facility] [address], DIRECT MAIL CLERK [address] [place] [facility] [address] [facility] [address] [facility] Vital Signs Date Time Vital Sign Value Performing Clinician Facility 10-16-2022 14:10-0400 Body height 154.94 cm Kori Temple Other [facility] Other 10-16-2022 14:10-0400 Body mass index (BMI) [Ratio] 26.53 kg/m2 Kori Temple Other [facility] Other 10-16-2022 14:10-0400 Body temperature 98.1 [degF] Kori Windy Other [facility] Other 10-16-2022 14:10-0400 Body weight 63.69 kg Kori Windy Other [facility] Other 10-16-2022 14:10-0400 Diastolic blood pressure 81 mm[Hg] Kori Windy Other [facility] Other 10-16-2022 14:10-0400 Respiratory rate 18 /min Kori Windy Other [facility] Other 10-16-2022 14:10-0400 SaO2% (BldA) [Mass fraction] 98 % Kori Windy Other [facility] Other 10-16-2022 14:10-0400 Systolic blood pressure 139 mm[Hg] Kori Windy Other [facility] Other 04-04-2022 09:30-0500 Body height 154.94 cm Denver Juarez Other [facility] Other 04-04-2022 09:30-0500 Body mass index (BMI) [Ratio] 28.72 kg/m2 Denver Juarez Other [facility] Other 04-04-2022 09:30-0500 Body temperature 97.8 [degF] Denver Juarez Other [facility] Other 04-04-2022 09:30-0500 Body weight 68.95 kg Denver Juarez Other [facility] Other 04-04-2022 09:30-0500 Diastolic blood pressure 72 mm[Hg] Denver Millernorah Other [facility] Other 04-04-2022 09:30-0500 SaO2% (BldA) [Mass fraction] 98 % Denver Juarez Other [facility] Other 04-04-2022 09:30-0500 Systolic blood pressure 116 mm[Hg] Denver Juarez Other [facility] Other 11-22-2021 12:12-0400 Body temperature 97.9 [degF] MD Shaikh Day Work Phone: [facility] 11-22-2021 12:12-0400 Diastolic blood pressure 82 mm[Hg] MD Shaikh Day Work Phone: [facility] 11-22-2021 12:12-0400 Heart rate 95 /min MD Shaikh Day Work Phone: [facility] 11-22-2021 12:12-0400 Respiratory rate 16 /min MD Shaikh Day Work Phone: [facility] 11-22-2021 12:12-0400 SaO2% (BldA) [Mass fraction] 98 % MD Shaikh Day Work Phone: [facility] 11-22-2021 12:12-0400 Systolic blood pressure 151 mm[Hg] MD Shaikh Day Work Phone: [facility] 11-22-2021 04:04-0400 Body weight 78.6 kg MD Shaikh Day Work Phone: [facility] 11-21-2021 17:12-0400 Body height 157.48 cm MD Shaikh Day Work Phone: [facility] 11-21-2021 13:57-0400 Diastolic blood pressure 56 mm[Hg] MD Shaikh Day Work Phone: [facility] 11-21-2021 13:57-0400 Heart rate 77 /min MD Shaikh Day Work Phone: [facility] 11-21-2021 13:57-0400 Respiratory rate 16 /min MD Shaikh Day Work Phone: [facility] 11-21-2021 13:57-0400 SaO2% (BldA) [Mass fraction] 95 % MD Shaikh Day Work Phone: [facility] 11-21-2021 13:57-0400 Systolic blood pressure 117 mm[Hg] MD Shaikh Day Work Phone: [facility] 11-21-2021 11:24-0400 Body temperature 96.9 [degF] MD Shaikh Day Work Phone: [facility] 11-21-2021 03:56-0400 Body height 157.48 cm MD Shaikh Day Work Phone: [facility] 11-21-2021 03:56-0400 Body weight 75.9 kg MD Shaikh Day Work Phone: [facility] 09-27-2021 10:15-0400 Body height 154.94 cm Denver Juarez Other [facility] Other 09-27-2021 10:15-0400 Body mass index (BMI) [Ratio] 35.9 kg/m2 Denver Juarez Other [facility] Other 09-27-2021 10:15-0400 Body temperature 96.2 [degF] Denver Juarez Other [facility] Other 09-27-2021 10:15-0400 Body weight 86.18 kg Denver Larry Other [facility] Other 09-27-2021 10:15-0400 Diastolic blood pressure 52 mm[Hg] Denver Juarez Other [facility] Other 09-27-2021 10:15-0400 SaO2% (BldA) [Mass fraction] 97 % Denver Millernorah Other [facility] Other 09-27-2021 10:15-0400 Systolic blood pressure 110 mm[Hg] Denver Millernorah Other [facility] Other 09-22-2021 14:15-0400 Body height 154.94 cm Ilda Das Other [facility] Other 09-22-2021 14:15-0400 Body mass index (BMI) [Ratio] 35.9 kg/m2 Ilda Das Other [facility] Other 09-22-2021 14:15-0400 Body temperature 98.2 [degF] Ilda Das Other [facility] Other 09-22-2021 14:15-0400 Body weight 86.18 kg Ilda Das Other [facility] Other 09-22-2021 14:15-0400 Respiratory rate 18 /min Ilda Das Other [facility] Other 09-22-2021 14:15-0400 SaO2% (BldA) [Mass fraction] 98 % Ilda Das Other [facility] Other 09-20-2021 17:00-0400 Body height 154.94 cm Susie Arrington Other [facility] Other 09-20-2021 17:00-0400 Body mass index (BMI) [Ratio] 35.9 kg/m2 Susiejennifer Arrington Other [facility] Other 09-20-2021 17:00-0400 Body weight 86.18 kg Susiejennifer Arrington Other [facility] Other 05-03-2021 11:45-0400 Body height 154.94 cm Susie Arrington Other [facility] Other 05-03-2021 11:45-0400 Body mass index (BMI) [Ratio] 35.9 kg/m2 Susie Murphy Other [facility] Other 05-03-2021 11:45-0400 Body weight 86.18 kg Susie Arrington Other [facility] Other 03-02-2021 10:00-0500 Body height 154.94 cm Denver Juarez Other [facility] Other 03-02-2021 10:00-0500 Body mass index (BMI) [Ratio] 36.27 kg/m2 Denver Juarez Other [facility] Other 03-02-2021 10:00-0500 Body temperature 96.5 [degF] Denver Juarez Other [facility] Other 03-02-2021 10:00-0500 Body weight 87.09 kg Denver Larry Other [facility] Other 03-02-2021 10:00-0500 Diastolic blood pressure 58 mm[Hg] Denver Juarez Other [facility] Other 03-02-2021 10:00-0500 SaO2% (BldA) [Mass fraction] 99 % Denverjessy Juarez Other [facility] Other 03-02-2021 10:00-0500 Systolic blood pressure 108 mm[Hg] Denver Juarez Other [facility] Other 12-01-2020 10:00-0400 Body height 154.94 cm Denver Juarez Other [facility] Other 12-01-2020 10:00-0400 Body mass index (BMI) [Ratio] 36.27 kg/m2 Denver Larry Other [facility] Other 12-01-2020 10:00-0400 Body weight 87.09 kg Denver Larry Other [facility] Other 12-01-2020 10:00-0400 Diastolic blood pressure 79 mm[Hg] Denver Juarez Other [facility] Other 12-01-2020 10:00-0400 Systolic blood pressure 149 mm[Hg] Denver Juarez Other [facility] Other 11-10-2020 10:30-0400 Body height 154.94 cm Denver Juarez Other [facility] Other 11-10-2020 10:30-0400 Body mass index (BMI) [Ratio] 35.9 kg/m2 Denver Juarez Other [facility] Other 11-10-2020 10:30-0400 Body weight 86.18 kg Denver Juarez Other [facility] Other 11-10-2020 10:30-0400 Diastolic blood pressure 84 mm[Hg] Denver Juarez Other [facility] Other 11-10-2020 10:30-0400 Systolic blood pressure 150 mm[Hg] Denver Juarez Other [facility] Other Encounters Encounter Date Encounter Type Care Provider Facility Start: 03-03-2023 ambulatory [facility] Start: 03-01-2023 Emergency department patient visit [facility] Start: 02-20-2023 End: 02-[facility]23 [facility] Start: 02-16-2023 ambulatory [facility] Start: 02-13-2023 End: 02-13-2023 ambulatory MEGHANN [facility] Start: 01-24-2023 Telephone encounter Charlette Burr [facility] Comment on above: paperwork Start: 01-21-2023 ambulatory De Oliveiratamara Rodriguesd Facility: [facility] Start: 10-16-2022 End: 10-16-2022 ambulatory Kori Temple Other [facility] Other Start: 10-16-2022 Office outpatient visit 15 minutes Kori eTmple [facility] Start: 08-28-2022 End: 08-28-2022 ambulatory [facility] Start: 04-04-2022 Office outpatient visit 15 minutes Denver Juarez [facility] Vascular Surgery Start: 04-04-2022 End: 04-04-2022 ambulatory Denver Juarez [facility] [employer] Other Start: 03-06-2022 End: 03-06-2022 ambulatory Earline Harris Other [facility] [employer] Other Start: 03-06-2022 Telephone encounter Earline Harris [facility] [address] Start: 03-05-2022 End: 03-05-[address] [facility] Start: 03-02-2022 End: 03-02-2022 ambulatory De Oliveira Fawwad Facility:[facility] Start: 03-02-2022 End: 03-02-2022 ambulatory MD Gerry Hartley Work Phone: [facility] Work Phone: Start: 03-02-2022 End: 03-02-2022 Departed Referred MD Gerry Hartley Work Phone: [facility]-Lab Main [place] Work Phone: Start: 02-21-2022 End: 02-22-2022 ambulatory MEGHANN FONSECA Facility:[facility] Start: 02-20-2022 End: 02-21-2022 ambulatory DE OLIVEIRA H FAWWAD Facility:[facility] Start: 01-31-2022 End: 02-01-2022 ambulatory DE OLIVEIRA H FAWWAD Facility:[facility] Start: 01-22-2022 End: 01-23-2022 ambulatory DE OLIVEIRA H FAWWAD Facility:[facility] Start: 01-18-2022 End: 01-19-[address] Facility:[facility] Start: 01-09-2022 End: 01-09-2022 ambulatory MD Shaikh Day Work Phone: [facility] Work Phone: Start: 01-09-2022 End: 01-09-2022 Discharged Recurring MD Shaikh Day Work Phone: [facility]-Speech Therapy [address] Start: 01-02-2022 End: 01-03-2022 ambulatory SHAIKH Be DAY Facility:[facility] Start: 12-07-2021 End: 12-08-2021 ambulatory SHAIKH Be DAY Facility:[facility] Start: 11-27-2021 End: 11-28-2021 ambulatory SHAIKH Be RODRIGUESD Facility:[facility] Start: 11-26-2021 End: 11-26-2021 ambulatory SHAIKH Be DAY Facility:[facility] Start: 11-24-2021 End: 11-24-2021 Emergency department patient visit [phone] Facility:[id number] Start: 11-21-2021 End: 11-22-2021 Evaluation and management of inpatient MD Shaikh Day Work Phone: [facility] [place] [facility] Start: 11-14-2021 Registered Recurring MD Shaikh Day Work Phone: [facility]-Speech Therapy [address] Start: 10-31-2021 End: 10-31-2021 ambulatory Denver Juarez Other [facility] Other Start: 10-31-2021 Telephone encounter Denver Chanel [facility] [employer] Start: 10-24-2021 End: 10-25-2021 ambulatory SHAIKH Be DAY Facility:[facility]1 Start: 10-16-2021 End: 10-18-2021 Evaluation and management of inpatient SHAIKH Be DAY Facility:[facility]1 Start: 09-27-2021 End: 09-27-2021 ambulatory Denver Juarez Other [facility] Other Start: 09-27-2021 Office outpatient visit 15 minutes Denver Juarez [facility] Start: 09-22-2021 End: 09-22-2021 ambulatory Ilda Das Other [facility] Other Start: 09-22-2021 Office outpatient visit 15 minutes Ilda Das [facility] Start: 09-20-2021 End: 09-20-2021 ambulatory Susiejennifer Arrington Other [facility] Other Start: 09-20-2021 Office outpatient visit 10 minutes Susiejennifer Arrington [facility] Start: 09-02-2021 End: 09-02-2021 ambulatory SHAIKH Be DAY Facility:[facility]1 Start: 08-31-2021 End: 08-31-2021 Patient encounter procedure MD Shaikh Day Work Phone: [facility]-Ultrasound [facility] Start: 08-29-2021 Registered Recurring MD Shaikh Day Work Phone: [facility]-Speech Therapy [address] Start: 08-24-[address] Facility :[facility]1 Start: 08-02-2021 End: 08-02-2021 ambulatory Susie Arrington Other [facility] Other Start: 08-02-2021 End: 08-02-2021 Patient encounter procedure Susie Arrington [facility] Start: 07-29-2021 End: 07-29-2021 ambulatory SHAIKH Be DAY Facility:[facility] Start: 07-12-2021 End: 07-12-2021 ambulatory Susie Murphy Other [facility] Other Start: 07-12-2021 Office outpatient visit 15 minutes Susiejennifer Arrington [facility] Start: 07-12-2021 End: 07-12-2021 Patient encounter procedure MD Shaikh Day Work Phone: [facility]-XRay [facility] Start: 06-15-2021 End: 06-15-2021 Discharged Recurring MD Shaikh Day Work Phone: [facility]-House [address] Start: 05-31-2021 End: 05-31-2021 ambulatory Susie Calvey Other [facility] Other Start: 05-31-2021 Postop follow up vis it related to original px Susie Arrington [facility] Start: 05-08-2021 End: 05-08-2021 ambulatory SHAIKH Be REEVESWAD Facility:[facility]1 Start: 05-03-2021 End: 05-03-2021 ambulatory Susie Arrington Other [facility] Other Start: 05-03-2021 Postop follow up vis it related to original px Susiejennifer Arrington [facility] Start: 03-30-2021 End: 03-31-2021 ambulatory SHAIKH Be REEVESWAD Facility:[facility] Start: 03-02-2021 End: 03-02-2021 ambulatory Denver Millernorah Other [facility] Other Start: 03-02-2021 Office outpatient visit 15 minutes Denver Juarez [facility] Vascular Surgery Start: 12-01-2020 Office outpatient visit 25 minutes Denver Juarez [facility] Surgery Start: 11-10-2020 Office outpatient visit 15 minutes Denver Juarez [facility] Vascular Surgery Procedures Date Procedure Procedure [...] DTaP,Tdap and Td Vaccines (2 - Tdap) [facility] Start: 03-12-2023 End: 03-12-2023 Patient encounter procedure 03/12/2023 10:00 AM EST Office Visit [facility] [address] [place] [id number] Alan Elmore MD [address] [place] [address], [address] [place] [address] [facility] Start: 10-12-2022 COVID-19 Vaccine ( season) COVID-19 Vaccine ( season) [facility] Start: 03-02-2022 Bacteria identified in Urine by Culture Urine Culture [facility] Start: 11-22-2021 Comprehensive metabolic 2000 panel - Serum or Plasma [facility] Start: 11-22-2021 Magnesium measurement [facility] Start: 11-22-2021 End: 11-22-2021 [facility] Start: 11-21-2021 Patient referral to dietitian [facility] Start: 11-21-2021 Referral to third loader [facility] Start: 11-21-2021 Hospital admission [facility] Start: 11-21-2021 Physical therapy procedure [facility] Start: 11-21-2021 Referral to occupational therapist [facility] Start: 11-21-2021 [facility] Start: 08-31-2021 Doppler ultrasonography of bilateral carotid arteries US carotid doppler BI [facility] Start: 08-31-2021 US.doppler Carotid arteries - bilateral [facility] Work Phone: Start: 2013 Fall Risk Screening Fall Risk Screening [facility] Start: 1998 Administration of varicella zoster vaccine Zoster (Shingles) Vaccine (1 of 2) [facility] Start: 1966 Adult BMI Screening Adult BMI Screening [facility] Start: 1960 Depression Screening Depression Screening [facility] Start: 1960 Tobacco Screening Tobacco Screening [facility] Start: 1948 Medicare Annual Wellness Visit Medicare Annual Wellness Visit [facility] Bacteria identified in Blood by Culture [facility] Bacteria identified in Urine by Culture [facility] Blood culture for bacteria, including anaerobic screen Blood Culture [facility] Patient Education Bradycardia (DC) [facility] Work Phone: Patient referral [facility] Work Phone: Urine culture Urine Culture [facility] Immunizations Immunization Date Immunization Notes Care Provider Fa cility 06-11-2020 COVID-19 Ad26.COV2.S (Clarence) MD Shaikh Day Work Phone: [facility] Payers Date Payer Category Payer Medicare [facility] MEDICARE [facility] MEDICARE ADVANTAGE [id number] 2018-Present [phone] [address] [place] [address] [id number] 2008 Unknown [id number] 1959 Medicare [id number] 1959 Self-pay [id number] 1948 Unknown [id number] 2.16.840.1.543749.3.579.2.159 1948 Unknown [id number] 2.16.840.1.623788.3.579.2.593 1948 Unknown [id number] 2.16.840.1.737247.3.579.2.593 1948 Unknown [id number] 2.16.840.1.102910.3.579.2.593 1948 Unknown [id number] 2.16.840.1.754800.3.579.2.593 1948 Unknown [id number] 2.16.840.1.342377.3.579.2.593 1948 Unknown [id number] 2.16.840.1.767206.3.579.2.593 1948 Unknown [id number] 2.16.840.1.818289.3.579.2.593 1948 Unknown [id number] 2.16840.1.699316.3.579.2.593 1948 Unknown [id number] 2.16840.1.269834.3.579.2.593 1948 Unknown [id number] 2.16840.1.139386.3.579.2.593 1948 Unknown [id number] 2.16.840.1.692510.3.579.2.593 1948 Unknown [id number] 2.16840.1.503288.3.579.2.593 1948 Unknown [id number] 2.16.840.1.805378.3.579.2.593 1948 Unknown [id number] 2.16.840.1.437596.3.579.2.593 1948 Unknown [id number] 2.16.840.1.137728.3.579.2.593 1948 Unknown [id number] 2.16.840.1.768582.3.579.2.593 1948 Unknown [id number] 2.16.840.1.478606.3.579.2.593 1948 Unknown [id number] 2.16.840.1.716895.3.579.2.593 1948 Unknown [id number] 2.16.840.1.652267.3.579.2.1259 1948 Unknown [id number] 2.16.840.1.800943.3.579.2.1286 1948 Unknown [id number] 2.16.840.1.127500.3.579.2.1286 1948 Unknown [id number] 2.16.840.1.847404.3.579.2.1286 1948 Unknown [id number] 2.16.840.1.008030.3.579.2.1286 Medicare Medicare [id number] Medicare Medicare [id number] Unknown [id number] 2.16.840.1.926745.3.579.2.531 Unknown [id number] 2.16.840.1.427905.3.579.2.531 Unknown [id number] 2.16.840.1.933116.3.579.2.531 Social History Date Type Detail Facility Start: 04-05-2018 End: 02-23-2020 Sex Assigned At [facility] Start: 07-22-2018 End: 03-31-2021 Tobacco smoking status MNIS Ex-smoker (finding) [facility] Start: 1950 Sex Assigned At Female F [facility] History of tobacco use Current smoker [facility] History of tobacco use [facility]ig[facility] Start: 07-22-2018 End: 02-23-2020 Cigarettes smoked current (pack per day) - Reported 1 [facility] Start: 07-22-2018 Tobacco use and exposure Smoke less tobacco [facility] Start: 08-25-2018 Alcohol intake Current non-dr grinder 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 alcohol (finding) [facility] Frequency of Alcohol Consumption Never [facility] Start: 1950 Sex Assigned At Not on file P [facility] Medical Equipment Procedure Code Equipment Code Equipment Origin al Text Equipment Identifier Dates ORIF, fracture, wrist Orthopaedic fixation plate, non-bioabsorbable, sterile ()[id number] FDA Start: 03-31-2021 ORIF, fracture, wrist Orthopaedic bone screw, non-bioabsorbable, non-sterile ()[id number] FDA Start: 03-31-2021 ORIF, fracture, wrist Orthopaedic bone screw, non-bioabsorbable, non-sterile ()[id number] FDA Start: 03-31-2021 ORIF, fracture, wrist Orthopaedic bone screw, non-bioabsorbable, non-sterile ()[id number] FDA Start: 03-31-2021 ORIF, fracture, wrist Orthopaedic bone screw, non-bioabsorbable, non-sterile ()[id number] FDA Start: 03-31-2021 Endarterectomy, carotid Cardiovascular patch, animal-derived ()[id number] FDA Start: 04-06-2020 Sys Crd Rvl Linq Rpl [id number] - [id number] - [id number] Start: 04-08-2018 Goals Date Patient Goal [...] Facility 11-22-2021 Functional status Patient at Baseline [facility] Work Phone: 11-21-2021 Functional status Patient Not at Baseline [facility] Work Phone: Mental Status Date Assessment Result Facility 11-22-2021 Cognitive function Cognitive Sta tus Patient at Baseline [facility] Work Phone: 11-21-2021 Cognitive function Cognitive Sta tus Patient Not at Baseline [facility] Work Phone: Clinical Notes 11-10-2020 [...] for diuresis and repeat BMP next week [facility] 02-13-2023 Note Lipid abnormalities are well controlled, continue crestor [facility] 02-13-2023 Note Hypertension is elev ated, currently will increase lasix to daily and increase potassium, Repeat BMP in 1 week Continue norvasc 2.5 mg Renal function normal [facility] 02-13-2023 Note Coronary artery dise ase is stable Continue GDMT- ASA, crestor and toprol continue risk factor modifications- heart healthy diet, regular exercise as tolerated and continue all medications. [facility] 02-13-2023 Note F/U with neuro [facility] 02-13-2023 Note [facility] CARDIOLOGY PROGR ESS NOTE [...] stroke on 10/20/2022 and was seen in [facility] ED. She is having trouble getting [...] to get appointment with Neuro/stroke service at [facility] and with her PCP DR Posey. Review [...] Affect: Mood nor (more content not included)... [facility] 02-13-2023 Note Patient here for 6 m o follow up CAD, hypertension, and carotid artery stenosis. She states she tries to take her lasix every other day. C/o pissing herself at night and smelly urine . Says she had another stroke on 10/20/2022 and was seen in [facility] ED. She is having trouble getting [...] All other systems reviewed and are negative. [facility] 01-24-2023 Miscellaneous Notes Patient called to see if we received paperwork that was sent from her PCP in July. Caller states she has had a new stroke and needs to be seen. Patient states she has been having headaches and dizziness. Please advise [phone] Patient last seen in 2019. No paperwork has been completed or received. Please see where patient had recent stroke and gather records. Called pt. She state Dr. Hartley sent the paperwork back in November 2022. MRI was done at [place] very recently. Fiberglass Model Maker will be requesting image and any office visit notes related to neurology. Pt seems to be very frustrated by the lack of communication. Fiberglass Model Maker informed that we will reach out to [place] to gather as much information. Fiberglass Model Maker must note that the quality of the call was very poor and it was hard to communicate with the patient. Asked if she could move to somewhere with a better casing man, but even then the quality did not improve. At the end of the call, she showed more frustration which parts data writer could not understand and she hung up. Called [facility] radiology to confirm if she has gotten any MRI in November. It was ordered by one of the hospitalists. A coordinate measuring machine technician could not confirm who ordered the imaging, but confirmed that she pushed over the imaging through PACs and reports via fax. Currently waiting for response. Faxed request for hospitalization records on nov 2022. Currently waiting for response. Called and scheduled an appointment on 03/12/23 at 10:00 AM documented in this encounter [facility] 01-24-2023 Telephone encounter Note Patient called to see if we received paperwork that was sent from her PCP in July. Caller states she has had a new stroke and needs to be seen. Patient states she has been having headaches and dizziness. Please advise [phone] [facility] 01-24-2023 Telephone encounter Note Patient last seen in 2018. No paperwork has been completed or received. Please see where patient had recent stroke and gather records. [facility] 01-24-2023 Telephone encounter Note Called pt. She state Dr. Hartley sent the paperwork back in November 2022. MRI was done at [place] very recently. Fiberglass Model Maker will be requesting image and any office visit notes related to neurology. Pt seems to be very frustrated by the lack of communication. Fiberglass Model Maker informed that we will reach out to [place] to gather as much information. Fiberglass Model Maker must note that the quality of the call was very poor and it was hard to communicate with the patient. Asked if she could move to somewhere with a better casing man, but even then the quality did not improve. At the end of the call, she showed more frustration which parts data writer could not understand and she hung up. [facility]-24-[facility]23 Telephone encounter Note Called [facility] radiology to confirm if she has gotten any MRI in November. It was ordered by one of the hospitalists. A coordinate measuring machine technician could not confirm who ordered the imaging, but confirmed that she pushed over the imaging through PACs and reports via fax. Currently waiting for response. [facility] 01-24-2023 Telephone encounter Note Faxed request for hospitalization records on nov 2022. Currently waiting for response. [facility] 01-24-2023 Telephone encounter Note Called and scheduled an appointment on 03/12/23 at 10:00 AM [facility] 10-16-2022 Evaluation note Encounter Date Diagnosis Assessment [...] with chronic urinary symptoms. Patient verbalized understanding. [facility] Other 07-18-2023 NoteUT Cardiology - [facility] Subjective Ozzie Gifford is a [...] , Disp: , Rfl: (more content not included)...[facility]02-22-2023 Evaluation note* Encounter Date Diagnosis Assessment [...] 1 year with repeat studies for surveillance. [facility] Other 01-23-2023 NoteHeart rate stable- 69 bpm Currently remains on toprol 25 mg daily. Denied lightheadedness/dizziness or syncopeUnFirelands [facility] 03-05-2022 NoteF/U with vascular surgery for monitoringUnFirelands [facility]01-23-2023 NoteWill start imdur 30 mg daily, d/w pt about headache as side effect and this should resolve after some time of taking imdur- if H/a does not resolve then we will stop medication. D/w pt that this may lower her b/p and to call office for any concerns.[facility]01-23-2023 NoteEvaluated by Vein specialist- Dr Walsh, Dr Juarez- vascular surgery Recommended lymphedema clinic.[facility]01-23-2023 Note [facility]TP CARDIOLOGY PROGRESS NOTE HPI: [...] not to see her vascular surgeon in [place] yet, to see the vein specialist first. [...] syncope RTC 3-6 months or earlier if neededSt[facility]01-23-2023 NotePatient here for follow up echo. She's down 8# from apt last month. She had B/L LE venous reflux study 2 weeks ago, and states that physician told me it was my heart . She is referring to her LE edema. She said PCP advised her not to see her vascular surgeon in [place] yet, to see the vein specialist first. Review of Systems Constitutional: Positive for weight loss. Cardiovascular: Positive for leg swelling. Skin: Positive for color change. All other systems reviewed and are negative.[facility] 03-05-2022 Notecontinue crestor 10 mgUnFirelands Regional Medical [facility] 03-05-2022 NoteHypertension is 144/86- at home she states b/p is typicaly 130/80 or less Will add imdur to regime for angina Continue toprol, lasixUnFirelands Regional Medical Center [facility] Campus01-23-2023 NoteContinue risk factor modifications- heart healthy diet, regular exercise as tolerated and continue all medications. Cpntinue GDMT- ASA, crestor, toprol, will start imdur.[facility]10-18-2022 NoteED Procedure Charges Entered On: 11/28/2021 17:45 EDT Performed On: 11/28/2021 17:44 EDT by Heena Crawford [employer] ([id number]) Sim Rep Sca to 2.5 [id number] : 1 Heena Crawford - 11/28/2021 17:[facility] NoteED Nursing Discharge Summary Entered On: 11/24/2021 17:29 EDT Performed On: 11/24/2021 17:29 EDT by Jennifer Mccarthy RN [place] Information [id number] ED IV's : No IV ED IV Site Assessment : No IV ED Vitals Completed : Yes ED Final Assessment Completed : Yes ED Progress Note Completed : Yes Complete all PRN/Pain response forms? : Yes ED Disassociate Patient from Monitor : N/A Updated Depart Time : Yes ED Belongings sent w patient [id number] : Not applicable Jennifer Mccarthy RN - [...] Assistance Given? : No Jennifer Mccarthy RN 11/24/2021 17:29 EDT [facility]10-14-2022 NotePROCEDURE: CT CHEST WITHOUT IV CONTRAST HISTORY: WHAT SYMPTOMS ARE YOU EXPERIENCING? - PT FELL AND HIT HEAD, PAIN, HX OF STROKE 2020, SOB, CHEST PAIN PAIN COMPARISON: None TECHNIQUE: Multiple contiguous axial CT images of the chest were obtained without the administration of intravenous contrast. Sagittal and coronal reconstructions were performed. [facility] use dose modulation, iterative reconstruction, and/or weight [...] in diameter. See below for follow-up recommendations. [facility] MANDATED QUALITY DATA - FOLLOW-UP IMAGING FOR [...] factors. * Reference: Radiology. 2017 Boris; 241(1):228-243, Juan Francisconer Guidelines for Management of Incidental Pulmonary Nodules on CT Electronically signed by: Ismael Aguilar MD 11/24/2021 1:28 PM CDT Technologist: WENDY CHAVEZ Dictated By: ISMAEL AGUILAR MD Signed By: ISMAEL AGUILAR MD Signed Out: 11/24/21 14:28:17[facility]10-12-2022 Consult note Author Shavon Leos [facility] November 22, 2021 11:54am Note Date/Time November 22, 2021 1 1:45am [facility] [address] [place] [address] Cardiology Consult Note Signed Patient: Ozzie Gifford MR#: [id number] : 1950 Acct:[id number] Age/Sex: 71 / F Adm Date: 2 Loc: Room: [address] [place] [address] Type: ADM IN Attending Dr: Anna Valladares [...] past she underwent work-up by cardiology in [place]. She did undergo an implantable loop recorder [...] appendectomy History of cardiac catheterization 2020 [facility] History of knee replacement right knee [...] x10E3/uL Lymph # (Auto) 1.2 (1.00-4.8) x10E3/uL [place] # (Auto) 0.4 (0.0-0.8) x10E3/uL Eos # [...] @ 100 mls/hr IV .Q10H [facility] Rx#:[id number] Oral 250 / 500 450 / 450 [...] implantable loop recorder had seen cardiology in [place] Code(s): R00.1 - Bradycardia, unspecified (2) AMS [...] continue his long-term follow-up with his primary third loader in [place] Documented By: Shavon Leos MD 11/22/21 1143 Signed By: <Electronically signed by MD Shavon Leos> 11/22/21 3882 [facility] Work Phone: 1(827) 247-167910-12-2022 Progress note Author Anna Valladares [facility] November 22, 2021 8:17am Note Date/Time November 21, 2021 1 2:10pm [facility] [address] [place] [address] Hospitalist Progress Note Signed Patient: Ozzie Gifford MR#: [id number] : 1950 Acct:[id number] Age/Sex: 71 / F Adm Date: 2 Loc: Room: [address] [place] [address] Type: ADM IN Attending Dr: Anna Valladares MD Copies to: ~ Date of Service: 11/21/2021 Subjective Subjective Narrative: Patient seen and examined. [place], currently still roomed in down in ER awaiting nursing floor availability. She offers no complaint. Keeps talkingof her daughter in [place] dying from cancer currently. thinks this is [...] 2 1210 Signed By: <Electronically signed by ANP- Jessica Rodriguez> 11/21/21 1424 <Electronically signed by Anna Valladares MD> 11/22/21 0817 [facility] Work Phone: 1(281) 649-826010-11-2022 History and physical note Author Ashleigh Rashid [facility] November 21, 2021 6:39am Note Date/Time November 21, 2021 6 :39am [facility] [address] [place] [address] Hospitalist H&P Signed Patient: Ozzie Gifford MR#: [id number] : 1950 Acct:[id number] Age/Sex: 71 / F Adm Date: 2 Loc: ER Room: Type: [facility] ER Attending Dr: Copies to: MD [...] injury, UA was concerning for UTI, on the patient was in bed she is [...] appendectomy History of cardiac catheterization 2020 [facility] History of knee replacement right knee [...] % (Auto) 20.4 % (.) 11/21/21 04:12 [place] % (Auto) 9.9 % (.) 11/21/21 04:12 Eos % (Auto) 3.7 % (.) 11/21/21 04:12 Baso % (Auto) 0.8 % (.) 11/21/21 04:12 Neut # (Auto) 3.5 x10E3/uL (1.8-7.7) 11/21/21 04:12 Lymph # (Auto) 1.1 x10E3/uL (1.00-4.8) 11/21/21 04:12 [place] # (Auto) 0.5 x10E3/uL (0.0-0.8) 11/21/21 04:12 [...] pH 5.5 (5.0-9.0) 11/21/21 04:20 Ur Specific [place] 1.010 (1.001-1.030) 11/21/21 04:20 Urine Protein Negative [...] signed by Ashleigh Cruz MD> 11/21/21 0639 [facility] Work Phone: 1(509) 550-374210-11-2022 History and physical note Author Ashleigh Rashid [facility] November 21, 2021 6:39am Note Date/Time November 21, 2021 6 :39am [facility] [address] [place] [address] Hospitalist H&P Signed Patient: Ozzie Gifford MR#: [id number] : 1950 Acct:[id number] Age/Sex: 71 / F Adm Date: 2 Loc: ER Room: Type: [facility] ER Attending Dr: Copies to: MD [...] appendectomy History of cardiac catheterization 2020 [facility] History of knee replacement right knee [...] % (Auto) 20.4 % (.) 11/21/21 04:12 [place] % (Auto) 9.9 % (.) 11/21/21 04:12 Eos % (Auto) 3.7 % (.) 11/21/21 04:12 Baso % (Auto) 0.8 % (.) 11/21/21 04:12 Neut # (Auto) 3.5 x10E3/uL (1.8-7.7) 11/21/21 04:12 Lymph # (Auto) 1.1 x10E3/uL (1.00-4.8) 11/21/21 04:12 [place] # (Auto) 0.5 x10E3/uL (0.0-0.8) 11/21/21 04:12 [...] pH 5.5 (5.0-9.0) 11/21/21 04:20 Ur Specific [place] 1.010 (1.001-1.030) 11/21/21 04:20 Urine Protein Negative [...] signed by Ashleigh Cruz MD> 11/21/21 0639 [facility] Work Phone: 1(803) 123-474008-17-2022 Evaluation note* Encounter Date Diagnosis Assessment Notes [...] studies. All of her questions were addressed. [facility] Other 08-12-2022 Evaluation note* Encounter Date Diagnosis [...] Advised that patient may continue to use [id number] medications as needed for supportive treatment. Discussed that it could be possible that her nausea/vomiting/diar debbi could still be some residual side effects from the Paxlovid medication. At this time she should not take anymore that. She may follow-up with family doctor as scheduled on Saturday if she has more concerns. [facility] Other 08-10-2022 Evaluation note* Encounter Date Diagnosis [...] new questions or concerns at this time. [facility] Other 06-22-2022 Evaluation note* Encounter Date Diagnosis [...] Other specified postprocedural states (ICD-10 - Z98.890) [facility] Other 06-01-2022 Evaluation note* Encounter Date Diagnosis [...] Other specified postprocedural states (ICD-10 - Z98.890) [facility] Other 04-20-2022 Evaluation note* Encounter Date Diagnosis [...] Progress activity as tolerated. Call with questions/concerns. [facility] Other 03-23-2022 Evaluation note* Encounter Date Diagnosis Assessment Notes Treatment Notes Treatment Clinical Notes Apr, Other specified postprocedural states (ICD-10 - Z98.890) Radiographs reviewed with patient. Patient is progressing well from surgery. Continue occupational therapy exercises. Call with questions/concerns . Apr, Other fractures of lower end of left radius, subsequent encounter for closed fracture with routine healing (ICD-10 - S52.592D) [facility] Other 01-20-2022 Evaluation note* Encounter Date Diagnosis [...] or reaches 80% or she develops symptoms [facility] Other 10-21-2021 Evaluation note* Encounter Date Diagnosis [...] suggested ice and elevation with compression stockings. [facility] Other 09-30-2021 Evaluation note* Encounter Date Diagnosis [...] classify this is asymptomatic recurrent stenoses currently. [facility] Other Evaluation noteNo assessment information available [facility] [employer] Work Phone: Evaluation noteNo InformationNort Kasenna Other Evaluation note* Diagnosis Onset Date Resolution Status JASEN (acute kidney injury) ac [place] AMS (altered mental status) acute Impaired mobility and activities of daily living acute Symptomatic bradycardia acut e [facility] [employer] Work Phone: Evaluation note* Diagnosis Onset Date Resolution Status JASEN (acute kidney injury) ac [place] AMS (altered mental status) acute Impaired mobility and activities of daily living acute Symptomatic bradycardia acut e H/O traumatic brain injury c hronic HLD (hyperlipidemia) chronic HTN, goal below 140/90 chron ic [facility] [employer] Work Phone: History general Narrative - Reported* [...] History childbirth Hospitalization History X2 strokes 2018 [facility] Other History general Narrative - Reported* Type Description [...] History childbirth Hospitalization History X2 strokes 2018 [facility] Other Hospital Discharge instructions Additional Instructions Please call and schedule an appointment with your established Restaurant Host/Hostess. We attempted to make this appointment for you but the office was currently unavailable.[facility] Work Phone: InstructionsNot on filedocumented in this encounter [facility] Summary Purpose Family History No Family History [...] and content) DATE CREATED AUTHOR 03/09/2020 [facility] DATE CREATED AUTHOR AUTHOR'S ORGANIZ ATION 12/03/2021 [facility] DATE CREATED AUTHOR AUTHOR'S ORGANIZ ATION 02/28/2022 [facility] DATE CREATED AUTHOR AUTHOR'S ORGANIZ ATION 01/22/2023 [facility] DATE CREATED AUTHOR AUTHOR'S ORGANIZ ATION 02/21/2023 [facility] DATE CREATED AUTHOR AUTHOR'S ORGANIZ ATION 02/28/2023 [facility] DATE CREATED AUTHOR AUTHOR'S ORGANIZ ATION 03/03/2023 [facility] REASON FOR VISIT (unrecogniz ed section and content) Reason Onset Date Comments paperwork 01/24/2023 Care Teams (unrecognized sec tion and content) Team Status: Inactive Member Role Status Dates Shaikh Barb MD Primary Care Provider Active Denver Juarez MD Attending Provider Active Team Status: Inactive Member Role Status Dates Shaikh Charlesd , MD Primary Care Provider Active Susie Arrington MD Attending Provider Active Team Status: Active Member Role Status Reid Hartley MD Primary Care Provider Active Shaikh Barb MD Attending Provider Active Team Status: Active Member Role Status Reid Day MD Primary Care Provider Active Team Status: Active Member Role Status Reid Day MD Primary Care Provider Active Rafiq Bahena , DO Emergency Provider Active Ashleigh Cruz MD [...] Young MD Other Provider Active Maddie Garcia [facility] Other Provider Active Team Status: Inactive Member Role Status Reid Day MD Primary Care Provider Active Rafiq Bahena , DO Emergency Provider Active Ashleigh Cruz MD Admit Provider Active Anna Valladares MD Attending Provider Active Team Status: Inactive Member Role Status Reid Hartley MD Primary Care Provider Active Shaikh Barb MD Attending Provider Active Team Status: Inactive Member Role Status Reid Day MD Primary Care Provider Active Earline Harris APRN Attending Provider Active [employer] Team Member Relationship Specialty Start Date End Date Gerry Hartley MD [address] [place] [address] PCP - General Family Medicine 04/07/18 Goals [...] BE BASED ON THE PRIMARY CLINICAL RECORDS. [facility] [employer] [facility]. provides no warranty or guarantee of the accuracy or completeness of information in this document.
--- NOTE | 2023-03-04 10:28 | CM.DCFOLLOWU ---
Person spoke with: patient How are you feeling? woke up with a cold, coughing and sneezing with mucus How is your pain? no pain Did you understand your discharge instructions? yes Do you have any questions about your discharge instructions? no Were you given any prescriptions at discharge? no Were you able to get your prescriptions filled? N/A Do you understand how to take your medications as ordered? yes Do you have any questions about your follow up appointment and do you plan to keep your follow up appointment? no questions and will call PCP today to schedule follow up Is there anything else that you would like to discuss? no Questions/Comments/Concerns/Other:
== END 2023-03-02 13:00 | disposition home or self-care (01) ==
LOC: ER 11:00 → MS 13:53
PROVIDERS: Admitting Provider Internal Medicine; Emergency Provider Emergency Medicine; PCP Internal Medicine; Visit Provider Internal Medicine
DX: G45.9 Transient cerebral ischemic attack, unspecified (principal); G43.109 Migraine with aura, not intractable, without status migrainosus; I69.320 Aphasia following cerebral infarction; I69.322 Dysarthria following cerebral infarction; R42 Dizziness and giddiness; I10 Essential (primary) hypertension; M47.26 Other spondylosis with radiculopathy, lumbar region; E78.5 Hyperlipidemia, unspecified; I65.23 Occlusion and stenosis of bilateral carotid arteries; G47.00 Insomnia, unspecified; R06.09 Other forms of dyspnea; M54.9 Dorsalgia, unspecified; R60.0 Localized edema; Z79.82 Long term (current) use of aspirin; Z79.899 Other long term (current) drug therapy; Z90.710 Acquired absence of both cervix and uterus; Z90.49 Acquired absence of other specified parts of digestive tract; Z98.890 Other specified postprocedural states; Z87.440 Personal history of urinary (tract) infections; Z87.891 Personal history of nicotine dependence
CPT/HCPCS: 36415; 70450; 70496; 70498; 70551; 71045; 72100; 80053; 80061; 82948; 83036; 84484; 85025; 85610; 85730; 86850; 86900; 86901; 93005; 94761; 96372; 96374; 97116; 97140; 97161; 97165; 99285; C8929; G0378; J1650; J1885; Q3014; Q9967

== ENCOUNTER 2023-03-06 08:04 | Outpatient (OUT) | payer MEDICARE, SELFPAY ==
--- OUTSIDE RECORDS SUMMARY | 2023-03-06 08:09 | XMS_ITS | CCD ---
Author Name Unknown Address [address] [place] [address] Organization [facility] Care Team Providers Care Rural Mail Carrier Name Role Phone Denver Juarez Unavailable Susie [...] [phone] MD Shavon Leos Other Provider [phone] MD Brayan Ribera Other Provider CÉSAR Arenas Other Provider [phone] MD Shefali Garibay Other Provider MD Vannessa Nava Other Provider MD Alissa Young Other Provider Jose [facility] Maddie Westbrook Other Provider MD Anna Valladares Attending Provider [phone] NO FAMILY PHYSICIAN, 837 Primary Care Unavail able MIKE VIDES, - LUIS Attending Unavaila MD Eddy Swenson Primary Care Provider DO Rafiq Bahena Emergency Provider Al Colette Cruz MD [facility] Admit Provider MD Anna Valladares Attending Provider [phone] MD Gerry Hartley Primary Care Provider MD Eddy Day Attending Provider [phone] Admitting Unavailable DAVID, LIZ Attending [...] FAWWAD, DE OLIVEIRA H Primary Care Unavailable ARDHA, ALONSO Admitting Unavailable ALONSO JACOBS Attending Unavailable [...] Unavailable Gerry Hartley MD Primary Care Provider [phone] SHAIKH DAY Attending Unavailable NICOLAS CARRILLO Attending [...] (14 sources) Penicillin G Drug Allergy Unknown Palette Other (9 sources) Penicillins; 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: [Penicillins] Allergy to substance 8 [facility] (1 source) Penicillin Drug Allergy 3 [facility] Repository Medications Current Medications Medication [...] 2018 9:29am take 1 capsule by mo [facility] every twenty-four hours Docusate Sodium 100 MG [...] disease (8 sources) Atherosclerotic heart disease of [place] coronary artery without angina pectoris; 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: [Other [...] Resolved: 2 Episodic Other aftercare (1 source) MCC (current) use of aspirin; 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: [JAIL CURRENT USE OF ASPIRIN] Onset: 2 Episodic Other aftercare (1 source) Other emt intermediate (current) drug therapy; 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: [OTH TUBING DRIER CURRENT DRUG THERAPY] Onset: 2 Episodic Other aftercare (1 source) Encounter for follow-up examination after completed treatment for conditions other than malignant neoplasm; 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: [ENC F/U EX AFTR CMPL TX NOT MAL SU] Onset: 2 Episodic Other aftercare (1 source) MCC (current) use of antithrombotics/antipl atelets; 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: [TUBING DRIER 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/ANTIPLATL ETS] Onset: 2 Episodic Other circulatory [...] GO DE K TO 20 MG Normal [facility] 37on 02-13-2023 37 Decrease amount of fluids your drinking to about 1.5 liters/day Take lasix 40 mg daily and increase potassium to 20 meq daily Have labs drawn in 1 week Call for appointment with neuro Normal [facility] Office Visiton 02-13-2023 Follow-up visit [id number] Ozzie Gifford 1950 F Date Provider Department Center 02/13/2023 MEGHANN NEGRETE CARD [facility] Family History Problem Relation Age of Onset Hypertension Mother Hypertension Father Heart attack Brother Family Status - Relation Status Age at Mother Father Brother Level of Service:08868 [place] OFFICE/OUTPATIENT ESTABLISHED MOD MDM 30 MIN Normal [facility] Urinalysis - AUTOMATEDon Appearance (U) cloudy [employer] Other Bilirubin Ql (U) Negative Thismoment Other Color (U) yellow Palette Other Glucose Ql (U) Negative [employer] Other Hemoglobin Ql (U) Negative [employer] Other Ketones Ql (U) Negative [employer] Other Leukocyte esterase Test strip Ql (U) Negative Palette Other Nitrite Ql (U) Negative [employer] Other pH (U) 6.0 [pH] Palette Other Protein Ql (U) Negative [employer] Other Specific gravity (U) [Rel density] 1.030 Palette Other Urobilinogen (U) [Mass/Vol] 1.0 mg/dL Palette Other Urinalysis - AUTOMATED No rth Bukupe Other Office Visiton 08-28-2022 Follow-up visit [id number] Ozzie Gifford 1950 F Date Provider Department Center 08/28/2022 NICOLAS MARCANO CARD [facility] Family History Problem Relation Age of Onset Hypertension Mother Hypertension Father Heart attack Brother Family Status - Relation Status Age at Mother Father Brother Level of Service:97598 [place] OFFICE/OUTPATIENT ESTABLISHED MOD MDM 30-39 MIN Reason for Visit and Comments: Follow-up [962443] - 6 month follow up Normal [facility] US carotid doppler BIon 03-15 US carotid doppler BI [facility] [place] [address] Ultrasound Report Signed Patient: Ozzie Gifford MR#: [id number] : 1950 Acct:[id number] Age/Sex: 71 / F ADM Date: 04/04/22 Loc: [facility] Room: Type: [facility] Attending Dr: Denver Juarez MD Ordering [...] Denver Juarez MD04/04/2022 3:28 PM Dictation Location: [facility] Tech: Selin Oglesby Transcribed By: SHYANN 04/04/22 1528 Dictated By: Denver Juarez MD 04/04/22 1528 Signed By: 04/04/22 1528 [facility] 37on 03-05-2022 37 Start Isosorbide/Imdur 30 mg daily in the morning- for chest pain Call office for any concerns, worsening chest pain, worsening headache, lightheadedness/dizzi ness. [facility] Office Visiton 03-05-2022 Follow-up visit [id number] Ozzie Gifford 1950 F Date Provider Department Center 03/05/2022 MEGHANN NEGRETE VANIA [facility] Family History Problem Relation Age of Onset Hypertension Mother Hypertension Father Heart attack Brother Family Status - Relation Status Age at Mother Father Brother Level of Service:86251 [place] OFFICE/OUTPATIENT ESTABLISHED MOD MDM 30-39 MIN Normal [facility] Urine Cultureon 03-02-2022 Bacteria identified Cx Nom (U) Reason for Exam Dysuria Urine ORGANISM: Escherichia coli (O:ESCCOL) [place] Count 20,000 Aerobic QUINTIN Charge (NMIC56) ---- [...] RESISTANT TO ALL B-LACTAM DRUGS. PERFORMED BY: [address] [place] [address] PATHOLOGIST DRILLER AND REAMER YOCASTA BYRNE M.D. Normal [facility] Comment on above: Performed By: #### C UU #### [facility] [address] [id number] [facility] ECHOCARDIO M/2D COMPLETEon 0 02-21-2022 ECHOCARDIO M/2D COMPLETE Patient: OZZIE GIFFORD Exam Date: 02/21/2022 : 1950 Gender:F Ordering : MEGHANN FONSECA Admission #: [id number] Family : SHAIKH Korina DAY . Order #: [id number] CLICK HERE TO VIEW EXAM ECHOCARDIOGRAM REPORT [...] Doty M.D. on 02/22/2022 at 13:00 Normal [facility] VC COMP CONSULTATIONon 02-20 VC COMP CONSULTATION Patient: OZZIE GIFFORDDeonte Exam Date: 02/20/2022 : 1950 Gender:F Ordering : SHAIKH Korina DAY . Admission #: [id number] Family : Order #: [id number] CLICK HERE TO VIEW EXAM RADIOLOGY REPORT [...] her congestive heart disease up with her chemistry manager in the next 2 weeks. The patient [...] Walsh MD on 02/20/2022 at 11:35 Normal [facility] VC VENOUS REFLUX IAN LMTon 0 02-20-2022 VC VENOUS REFLUX IAN LMT Patient: OZZIE GIFFORD Exam Date: 02/20/2022 : 1950 Gender:F Ordering : SHAIKH Korina Clemons Admission #: [id number] Family : DR NATACHA WALSH M.D. Order #: [id number] CLICK HERE TO VIEW EXAM RADIOLOGY REPORT [...] chronic thrombus visualized Compressibility: Normal Flow: Normal Junior Network Engineer: Dist/med calf 2.5mm with 0s reflux. Mid/med [...] MD on 02/20/2022 at 10:30 Normal [facility] US JANETTE DOP LEG LTon 01-31- 22 [...] INDRA LOZADA Date: 2022-01-31 18:39 Normal [facility] BNPon 01-22-2022 Natriuretic peptide B (Bld) [Mass/Vol] 552.0 pg/mL Normal <=900.0 [facility] Comment on above: Performed By: #### E RUR #### [facility] [address] [place] [address] Dr. Grzegorz Wang CBC AUTO DIFFon 01-22-2022 BASO # 0.1 103/ul Normal 0.0-0.1 [facility] Comment on above: Performed By: #### C BC #### [facility] [address] [place] [address] Dr. Grzegorz Wang Basophils/100 WBC (Bld) 0.9 % Normal 0.2-2.0 [facility] Comment on above: Performed By: #### C BC #### [facility] [address] [place] [address] Dr. Grzegorz Wang EO # 0.3 103/ul Normal 0.0-0.7 [facility] Comment on above: Performed By: #### C BC #### [facility] [address] [place] [address] Dr. Grzegorz Wang Eosinophils/100 WBC (Bld) 5.5 % Normal 0.9-7.0 [facility] Comment on above: Performed By: #### C BC #### [facility] [address] [place] [address] Dr. Grzegorz Wang Erythrocyte distribution width (RBC) [Ratio] 13.7 % Normal 11.0-15.0 [facility] Comment on above: Performed By: #### C BC #### [facility] [address] [place] [address] Dr. Grzegorz Wang Hematocrit (Bld) [Volume fraction] 41.1 % Normal 36.0-48.0 [facility] Comment on above: Performed By: #### C BC #### [facility] [address] [place] [address] Dr. Grzegorz Wang Hemoglobin (Bld) [Mass/Vol] 13.4 g/dL Normal 12.0-16.0 [facility] Comment on above: Performed By: #### C BC #### [facility] [address] [place] [address] Dr. Grzegorz Wang IG # 0.01 10e3/ul Normal 0.00-0.03 [facility] Comment on above: Performed By: #### C BC #### [facility] [address] [place] [address] Dr. Grzegorz Wang IG % 0.2 % Normal 0.0-0.5 [facility] Comment on above: Performed By: #### C BC #### [facility] [address] [place] [address] Dr. Grzegorz Wang LYMPH # 1.8 103/ul Normal 1.2-3.8 [facility] Comment on above: Performed By: #### C BC #### [facility] [address] [place] [address] Dr. Grzegorz Wang Lymphocytes/100 WBC (Bld) 29.9 % Normal 20.5-60.0 [facility] Comment on above: Performed By: #### C BC #### [facility] [address] [place] [address] Dr. Grzegorz Wang MANUAL DIFF REQ NO Normal [facility] Comment on above: Performed By: #### C BC #### [facility] [address] [place] [address] Dr. Grzegorz Wang MCH (RBC) [Entitic mass] 28.2 pg Normal 26.7-34.0 [facility] Comment on above: Performed By: #### C BC #### [facility] [address] [place] [address] Dr. Grzegorz Wang MCHC (RBC) [Mass/Vol] 32.6 g/dL Normal 29.9-35.2 [facility] Comment on above: Performed By: #### C BC #### [facility] [address] [place] [address] Dr. Grzegorz Wang MCV (RBC) [Entitic vol] 86.5 fL Normal 81.0-99.0 [facility] Comment on above: Performed By: #### C BC #### [facility] [address] [place] [address] Dr. Grzegorz Wang MONO # 0.7 103/ul Normal 0.3-0.8 [facility] Comment on above: Performed By: #### C BC #### [facility] [address] [place] [address] Dr. Grzegorz Wang Monocytes/100 WBC (Bld) 11.1 % Normal 1.7-12.0 [facility] Comment on above: Performed By: #### C BC #### [facility] [address] [place] [address] Dr. Grzegorz Wang NEUT # 3.1 103/ul Normal 1.4-6.5 [facility] Comment on above: Performed By: #### C BC #### [facility] [address] [place] [address] Dr. Grzegorz Wang Neutrophils/100 WBC (Bld) 52.4 % Normal 43.0-75.0 [facility] Comment on above: Performed By: #### C BC #### [facility] [address] [place] [address] Dr. Grzegorz aWng Platelet mean volume (Bld) [Entitic vol] 9.6 fL Normal 9.5-13.5 [facility] Comment on above: Performed By: #### C BC #### [facility] [address] [place] [address] Dr. Grzegorz Wang PLT 162 103/ul Normal 150-450 [facility] Comment on above: Performed By: #### C BC #### [facility] [address] [place] [address] Dr. Grzegorz Wang RBC 4.75 106/ul Normal 4.20-5.40 [facility] Comment on above: Performed By: #### C BC #### [facility] [address] [place] [address] Dr. Grzegorz Wang WBC 5.9 103/ul Normal 4.0-11.0 [facility] Comment on above: Performed By: #### C BC #### [facility] [address] [place] [address] Dr. Grzegorz Wang PROF 14(COMP METB)on 022 Albumin [Mass/Vol] 3.4 g/dL Normal 3.4-5.[address] [facility] Comment on above: Performed By: #### E RUR #### [facility] [address] [place] [address] Dr. Grzegorz Wang Albumin/Globulin [Mass ratio] 1.0 {ratio} Normal [facility] Comment on above: Performed By: #### E RUR #### [facility] [address] [place] [address] Dr. Grzegorz Wang ALP [Catalytic activity/Vol] 102 U/L Normal 46-116 [facility] Comment on above: Performed By: #### E RUR #### [facility] [address] [place] [address] Dr. Grzegorz Wang ALT [Catalytic activity/Vol] 16 U/L Normal 14-59 [facility] Comment on above: Performed By: #### E RUR #### [facility] [address] [place] [address] Dr. Grzegorz Wang Anion gap [Moles/Vol] 10.6 mmol/L Normal [facility] Comment on above: Performed By: #### E RUR #### [facility] [address] [place] [address] Dr. Grzegorz Wang AST [Catalytic activity/Vol] 18 U/L Normal 15-37 [facility] Comment on above: Performed By: #### E RUR #### [facility] [address] [place] [address] Dr. Grzegorz Wang Bilirubin [Mass/Vol] 0.4 mg/dL Normal 0.2-1.0 [facility] Comment on above: Performed By: #### E RUR #### [facility] [address] [place] [address] Dr. Grzegorz Wang Calcium [Mass/Vol] 9.0 mg/dL Normal 8.5-10.1 [facility] Comment on above: Performed By: #### E RUR #### [facility] [address] [address] [address] Grzegorz Wang Chloride [Moles/Vol] 103 mmol/L Normal 98-107 [facility] Comment on above: Performed By: #### E RUR #### [facility] [address] [address] [address] Grzegorz Wang CO2 [Moles/Vol] 31.4 mmol/L Normal 21.0-32.0 [facility] Comment on above: Performed By: #### E RUR #### [facility] [address] [place] [address] Dr. Grzegorz Wang Creatinine [Mass/Vol] 0.80 mg/dL Normal 0.55-1.02 [facility] Comment on above: Performed By: #### E RUR #### [facility] [address] [place] [address] Dr. Grzegorz Wang EGFR-AF BERMUDIAN >60 Normal >=60 [facility] Comment on above: Performed By: #### E RUR #### [facility] [address] [place] [address] Dr. Grzegorz Wang EGFR-NON AF BERMUDIAN >60 Normal >=60 [facility] Comment on above: Performed By: #### E RUR #### [facility] [address] [place] [address] Dr. Grzegorz Wang Globulin (S) [Mass/Vol] 3.4 g/dL Normal [facility] Comment on above: Performed By: #### E RUR #### [facility] [address] [place] [address] Dr. Grzegorz Wnag Glucose [Mass/Vol] 78 mg/dL Normal 74-[address] [facility] Comment on above: Performed By: #### E RUR #### [facility] [address] [address] [address] Grzegorz Wang Potassium [Moles/Vol] 3.0 mmol/L Critically low 3.5-5.1 [facility] Comment on above: Performed By: #### E RUR #### [facility] [address] [address] [address] Grzegorz Wang Protein [Mass/Vol] 6.8 g/dL Normal 6.4-8.[address] [facility] Comment on above: Performed By: #### E RUR #### [facility] [address] [address] [address] Grzegorz Wang Sodium [Moles/Vol] 142 mmol/L Normal 136-145 [facility] Comment on above: Performed By: #### E RUR #### [facility] [address] [address] [address] Grzegorz Wang Urea nitrogen [Mass/Vol] 14.0 mg/dL Normal 7.0-18.0 [facility] Comment on above: Performed By: #### E RUR #### [facility] [address] [address] [address] Grzegorz Wang Urea nitrogen/Creatinine [Mass ratio] 17.5 mg/mg Normal [facility] Comment on above: Performed By: #### E RUR #### [facility] [address] [address] [address] Grzegorz Wang US JANETTE DOP LEG [...] by: MIRI BALTAZAR Date: 2022-01-22 16:38 Normal [facility] LIPID PROFILEon 01-18-2022 CHOL-HDL RATIO NORM SEE BELOW Normal [facility] Comment on above: Result Comment: 3.3 - 4.4 LOW RISK 4.4 - 7.1 AVERAGE RISK 7.1 - 11.0 MODERATE RISK >11.0 HIGH RISK Performed By: #### A PHIL OWEN #### [facility] [address] [address] [address] Grzegorz Wang Cholesterol [Mass/Vol] 125 mg/dL Normal <=200 Th [facility] Comment on above: Performed By: #### A MY, LIPA #### [facility] [address] [address] [address] Grzegorz Wang Cholesterol in HDL [Mass/Vol] 69 mg/dL Critically high 40-60 [facility] Comment on above: Performed By: #### A MY, LIPA #### [facility] [address] [address] [address] Grzegorz Wang Cholesterol in LDL [Mass/Vol] 40.0 mg/dL Normal [facility] Comment on above: Performed By: #### A MY, LIPA #### [facility] [address] [place] [address] Dr. Grzegorz Wang Cholesterol.total/Claudia sterol in HDL [Mass ratio] 1.8 {ratio} Normal [facility] Comment on above: Performed By: #### A MY, LIPA #### [facility] [address] [address] [address] Grzegorz Wang HDL NORMAL > or = 60 mg/dl - LO W CARDIOVASCULAR RISK <40 mg/dl - HIGH CARDIOVASCULAR RISK Normal [facility] Comment on above: Performed By: #### A MY, LIPA #### [facility] [address] [address] [address] Grzegorz Wang LDL CALC NORMAL SEE BELOW Normal [facility] Comment on above: Result Comment: <100 mg/dl OPTIMAL 100 - 129 mg/dl NEAR OR ABOVE OPTIMAL 130 - 159 mg/dl BORDERLINE HIGH 160 - 189 mg/dl HIGH >190 mg/dl VERY HIGH Performed By: #### A MY, LIPA #### [facility] [address] [address] [address] Grzegorz Wang Triglyceride [Mass/Vol] 80 mg/dL Normal <=150 T [facility] Comment on above: Performed By: #### A MY, LIPA #### [facility] [address] [address] [address] Grzegorz Wang VLDL CALC 16.0 mg/dL Normal [facility] Comment on above: Performed By: #### A PHIL OWEN #### [facility] [address] [address] [address] Grzegorz Wang US PELVISon 01-18-2022 US [...] by: MITZI CHAU Date: 2022-01-18 10:31 Normal [facility] XR CHEST 2 Von 01-03-2022 XR CHEST [...] by: MITZI CHAU Date: 2022-01-03 10:48 Normal [facility] US PELVISon 12-07-2021 US PELVIS EXAMINATION: US [...] MITZI CHAU Date: 2021-12-07 17:20 Normal [facility] PROF CHEM 8 (BAS METB)on Anion gap [Moles/Vol] 13.0 mmol/L Normal [facility] Comment on above: Performed By: #### A LUCHO OWENA #### [facility] [address] [place] [address] Dr. Grzegorz Wang Calcium [Mass/Vol] 8.9 mg/dL Normal 8.5-10.[address] [facility] Comment on above: Performed By: #### A BRAYDEN LIPA #### [facility] [address] [place] [address] Dr. Grzegorz Wang Chloride [Moles/Vol] 105 mmol/L Normal 98-107 [facility] Comment on above: Performed By: #### A BRAYDEN LIPA #### [facility] [address] [place] [address] Dr. Grzegorz Wang CO2 [Moles/Vol] 29.0 mmol/L Normal 21.0-32.0 [facility] Comment on above: Performed By: #### A BRAYDEN LIPA #### [facility] [address] [place] [address] Dr. Grzegorz Wang Creatinine [Mass/Vol] 0.79 mg/dL Normal 0.55-1.02 [facility] Comment on above: Performed By: #### A BRAYDEN LIPA #### [facility] [address] [place] [address] Dr. Grzegorz Wang EGFR-AF BERMUDIAN >60 Normal >=60 [facility] Comment on above: Performed By: #### A BRAYDEN LIPA #### [facility] [address] [place] [address] Dr. Grzegorz Wang EGFR-NON AF BERMUDIAN >60 Normal >=60 [facility] Comment on above: Performed By: #### A PHIL OWEN #### [facility] [address] [place] [address] Dr. Grzegorz Wang Glucose [Mass/Vol] 79 mg/dL Normal 74-106 [facility] Comment on above: Performed By: #### A PHIL OWEN #### [facility] [address] [place] [address] Dr. Grzegorz Wang Potassium [Moles/Vol] 3.0 mmol/L Critically low 3.5-5.1 [facility] Comment on above: Performed By: #### A PHIL OWEN #### [facility] [address] [place] [address] Dr. Grzegorz Wang Sodium [Moles/Vol] 144 mmol/L Normal 136-145 [facility] Comment on above: Performed By: #### A PHIL OWEN #### [facility] [address] [place] [address] Dr. Grzegorz Wang Urea nitrogen [Mass/Vol] 12.0 mg/dL Normal 7.0-18.0 [facility] Comment on above: Performed By: #### A PHIL OWEN #### [facility] [address] [place] [address] Dr. Grzegorz Wang Urea nitrogen/Creatinine [Mass ratio] 15.2 mg/mg Normal [facility] Comment on above: Performed By: #### A BRAYDEN LIPA #### [facility] [address] [place] [address] Dr. Grzegorz Wang VITAMIN B12on 11-27-2021 Cobalamin (Vitamin B12) [Mass/Vol] 5661.0 pg/mL Critically high 193.0-986.0 [facility] Comment on above: Performed By: #### E RUR #### [facility] [address] [place] [address] Dr. Grzegorz Wang BNPon 11-26-2021 Natriuretic peptide B (Bld) [Mass/Vol] 1245.0 pg/mL Critically high <=900.0 [facility] Comment on above: Performed By: #### A BRAYDEN LIPA #### [facility] [address] [address] [address] Grzegorz Wang Bacterial blood cultureOrder ed By: Ashleigh Rashid on 11-26-2021 Bacteria identified Cx Nom (Bld) NO GROWTH [address] [facility] CARDIAC BAMBI ADMITon 022 CK [Catalytic activity/Vol] 75 U/L Normal 26-192 [facility] Comment on above: Performed By: #### A BRAYDEN LIPA #### [facility] [address] [address] [address] Grzegorz Wang CK.MB [Mass/Vol] 1.58 ng/mL Normal <=3.60 The [facility] Comment on above: Performed By: #### A BRAYDEN LIPA #### [facility] [address] [place] [address] Dr. Grzegorz Wang HSTROP 13.3 pg/mL Normal 4.0-51.3 The [facility] Comment on above: Result Comment: CUT- OFF POINTS HAVE BEEN ESTABLISHED BASED ON THE FOURTH UNIVERSAL DEFINITIONS OF MYOCARDIAL INFARCTION. THE UPPER REFERENCE LIMIT (URL) OF TROPONIN, DEFINED THE 99TH PERCENTILE OF cTnI DISTRIBUTION IN A REFERENCE POPULATION, HAS BEEN CONFIRMED THE DECISION THRESHOLD FOR [place] DIAGNOSIS. Performed By: #### A BRAYDEN LIPA #### [facility] [address] [place] [address] Dr. Grzegorz Wang MITZI 85 ng/mL Critically high 9-82 [facility] Comment on above: Performed By: #### A BRAYDEN LIPA #### [facility] [address] [address] [address] Grzegorz Wang CBC AUTO DIFFon 11-26-2021 BASO # 0.0 103/ul Normal 0.0-0.1 [facility] Comment on above: Performed By: #### A BRAYDEN LIPA #### [facility] [address] [place] [address] Dr. Grzegorz Wang Basophils/100 WBC (Bld) 0.5 % Normal 0.2-2.0 [facility] Comment on above: Performed By: #### A BRAYDEN LIPA #### [facility] [address] [place] [address] Dr. Grzegorz Wang EO # 0.1 103/ul Normal 0.0-0.7 The [facility] Comment on above: Performed By: #### A MY, LIPA #### [facility] [address] [place] [address] Dr. Grzegorz Wang Eosinophils/100 WBC (Bld) 1.3 % Normal 0.9-7.0 The [facility] Comment on above: Performed By: #### A MY, LIPA #### [facility] [address] [place] [address] Dr. Grzegorz Wang Erythrocyte distribution width (RBC) [Ratio] 16.8 % Critically high 11.0-15.0 [facility] Comment on above: Performed By: #### A BRAYDEN LIPA #### [facility] [address] [place] [address] Dr. Grzegorz Wang Hematocrit (Bld) [Volume fraction] 36.6 % Normal 36.0-48.0 [facility] Comment on above: Performed By: #### A BRAYDEN LIPA #### [facility] [address] [place] [address] Dr. Grzegorz Wang Hemoglobin (Bld) [Mass/Vol] 12.1 g/dL Normal 12.0-16.0 [facility] Comment on above: Performed By: #### A BRAYDEN, LIPA #### [facility] [address] [place] [address] Dr. Grzegorz Wang IG # 0.03 10e3/ul Normal 0.00-0.03 The [facility] Comment on above: Performed By: #### A MY, LIPA #### [facility] [address] [place] [address] Dr. Grzegorz Wang IG % 0.5 % Normal 0.0-0.5 [facility] Comment on above: Performed By: #### A MY, LIPA #### [facility] [address] [place] [address] Dr. Grzegorz Wang LYMPH # 0.9 103/ul Critically low 1.2-3.8 The [facility] Comment on above: Performed By: #### A MY, LIPA #### [facility] [address] [place] [address] Dr. Grzegorz Wang Lymphocytes/100 WBC (Bld) 15.4 % Critically low 20.5-60.0 [facility] Comment on above: Performed By: #### A MY, LIPA #### [facility] [address] [place] [address] Dr. Grzegorz Wang MANUAL DIFF REQ NO Normal [facility] Comment on above: Performed By: #### A MY, LIPA #### [facility] [address] [place] [address] Dr. Grzegorz Wang MCH (RBC) [Entitic mass] 27.7 pg Normal 26.7-34.0 [facility] Comment on above: Performed By: #### A MY, LIPA #### [facility] [address] [place] [address] Dr. Grzegorz Wang MCHC (RBC) [Mass/Vol] 33.1 g/dL Normal 29.9-35.2 [facility] Comment on above: Performed By: #### A BRAYDEN LIPA #### [facility] [address] [place] [address] Dr. Grzegorz Wang MCV (RBC) [Entitic vol] 83.8 fL Normal 81.0-99.0 [facility] Comment on above: Performed By: #### A MY, LIPA #### [facility] [address] [place] [address] Dr. Grzegorz Wang MONO # 0.5 103/ul Normal 0.3-0.8 [facility] Comment on above: Performed By: #### A MY, LIPA #### [facility] [address] [place] [address] Dr. Grzegorz Wang Monocytes/100 WBC (Bld) 7.8 % Normal 1.7-12.0 [facility] Comment on above: Performed By: #### A MY, LIPA #### [facility] [address] [place] [address] Dr. Grzegorz Wang NEUT # 4.5 103/ul Normal 1.4-6.5 The [facility] Comment on above: Performed By: #### A LUCHO OWENA #### [facility] [address] [place] [address] Dr. Grzegorz Wang Neutrophils/100 WBC (Bld) 74.5 % Normal 43.0-75.0 The [facility] Comment on above: Performed By: #### Luna OWEN LIPA #### [facility] [address] [place] [address] Dr. Grzegorz Wang Platelet mean volume (Bld) [Entitic vol] 11.2 fL Normal 9.5-13.5 The [facility] Comment on above: Performed By: #### LUCHO CHAKRABORTYA #### [facility] [address] [place] [address] Dr. Grzegorz Wang PLT 187 103/ul Normal 150-450 The [facility] Comment on above: Performed By: #### Luna OWEN LIPA #### [facility] [address] [place] [address] Dr. Grzegorz Wang RBC 4.37 106/ul Normal 4.20-5.40 The [facility] Comment on above: Performed By: #### LUCHO CHAKRABORTYA #### [facility] [address] [place] [address] Dr. Grzegorz Wang WBC 6.0 103/ul Normal 4.0-11.0 The [facility] Comment on above: Performed By: #### Luna OWEN LIPA #### [facility] [address] [place] [address] ABD/PELVIS WO CONon [...] by: MANDI MANRIQUEZ Date: 2021-11-26 15:08 Normal [facility] CT CSPINE WO CONon 2 CT CSPINE [...] by: SHANIA WASHINGTON Date: 2021-11-26 14:44 Normal [facility] ER URINE PROFILEon 2 Bilirubin Ql (U) Negative Normal NEGATIVE [facility] Comment on above: Performed By: #### C BC #### [facility] [address] [place] [address] Dr. Grzegorz Wang Clarity (U) CLEAR Normal CLEAR [facility] Comment on above: Performed By: #### C BC #### [facility] [address] [place] [address] Dr. Grzegorz Wang Color (U) LT. YELLOW Normal YELLOW [facility] Comment on above: Performed By: #### C BC #### [facility] [address] [place] [address] Dr. Grzegorz Wang ERUAudra A micrscopic examination will be performed if indicated. Normal The [facility] Comment on above: Performed By: #### C BC #### [facility] [address] [place] [address] Dr. Grzegorz Wang Glucose Ql (U) Negative Normal NEGATIVE The [facility] Comment on above: Performed By: #### C BC #### [facility] [address] [place] [address] Dr. Grzegorz Wang Hemoglobin Ql (U) TRACE-INTACT Abnormal NEGATIVE [facility] Comment on above: Performed By: #### C BC #### [facility] [address] [place] [address] Dr. Grzegorz Wang Ketones Ql (U) Negative Normal NEGATIVE [facility] Comment on above: Performed By: #### C BC #### [facility] [address] [place] [address] Dr. Grzegorz Wang LEUKOCYTES Negative Normal NEGATIVE [facility] Comment on above: Performed By: #### C BC #### [facility] [address] [place] [address] Dr. Grzegorz Wang Nitrite Ql (U) Negative Normal NEGATIVE [facility] Comment on above: Performed By: #### C BC #### [facility] [address] [place] [address] Dr. Grzegorz Wang pH (U) 5.5 [pH] Normal 5-9 [facility] Comment on above: Performed By: #### C BC #### [facility] [address] [place] [address] Dr. Grzegorz Wang SPEC GRAVITY <=1.005 Abnormal 1.005-<=1.0 25 [facility] Comment on above: Performed By: #### C BC #### [facility] [address] [place] [address] Dr. Grzegorz Wang UA PROTEIN Negative Normal NEGATIVE/ TRACE [facility] Comment on above: Performed By: #### C BC #### [facility] [address] [place] [address] Dr. Grzegorz Wang UR MICRO IND INDICATED Normal [facility] Comment on above: Performed By: #### C BC #### [facility] [address] [place] [address] Dr. Grzegorz Wang Urobilinogen Qn (U) 0.2 {Lidya'U}/dL Normal 0.2 - 1. 0 [facility] Comment on above: Performed By: #### C BC #### [facility] [address] [address] [address] Grzegorz Wang PROF 14(COMP METB)on 022 Albumin [Mass/Vol] 3.5 g/dL Normal 3.4-5.[address] [facility] Comment on above: Performed By: #### A MY, LIPA #### [facility] [address] [address] [address] Grzegorz Wang Albumin/Globulin [Mass ratio] 1.1 {ratio} Normal [facility] Comment on above: Performed By: #### A MY, LIPA #### [facility] [address] [address] [address] Grzegorz Wang ALP [Catalytic activity/Vol] 89 U/L Normal 46-116 [facility] Comment on above: Performed By: #### A BRAYDEN, LIPA #### [facility] [address] [place] [address] Dr. Grzegorz Wang ALT [Catalytic activity/Vol] 22 U/L Normal 14-59 [facility] Comment on above: Performed By: #### A BRAYDEN, LIPA #### [facility] [address] [place] [address] Dr. Grzegorz Wang Anion gap [Moles/Vol] 10.2 mmol/L Normal [facility] Comment on above: Performed By: #### A BRAYDEN, LIPA #### [facility] [address] [place] [address] Dr. Grzegorz Wang AST [Catalytic activity/Vol] 18 U/L Normal 15-37 [facility] Comment on above: Performed By: #### A MY, LIPA #### [facility] [address] [place] [address] Dr. Grzegorz Wang Bilirubin [Mass/Vol] 0.6 mg/dL Normal 0.2-1.0 [facility] Comment on above: Performed By: #### A MY, LIPA #### [facility] [address] [place] [address] Dr. Grzegorz Wang Calcium [Mass/Vol] 9.1 mg/dL Normal 8.5-10.[address] [facility] Comment on above: Performed By: #### A MY, LIPA #### [facility] [address] [address] [address] Grzegorz Wang Chloride [Moles/Vol] 106 mmol/L Normal 98-107 [facility] Comment on above: Performed By: #### A MY, LIPA #### [facility] [address] [address] [address] Grzegorz Wang CO2 [Moles/Vol] 29.5 mmol/L Normal 21.0-32.0 [facility] Comment on above: Performed By: #### A MY, LIPA #### [facility] [address] [address] [address] Grzegorz Wang Creatinine [Mass/Vol] 0.86 mg/dL Normal 0.55-1.02 [facility] Comment on above: Performed By: #### A MY, LIPA #### [facility] [address] [place] [address] Dr. Grzegorz Wang EGFR-AF BERMUDIAN >60 Normal >=60 [facility] Comment on above: Performed By: #### A MY, LIPA #### [facility] [address] [address] [address] Grzegorz Wang EGFR-NON AF BERMUDIAN >60 Normal >=60 [facility] Comment on above: Performed By: #### A MY, LIPA #### [facility] [address] [address] [address] Grzegorz Wang Globulin (S) [Mass/Vol] 3.1 g/dL Normal [facility] Comment on above: Performed By: #### A MY, LIPA #### [facility] [address] [address] [address] Grzegorz Wang Glucose [Mass/Vol] 98 mg/dL Normal 74-[address] [facility] Comment on above: Performed By: #### A MY, LIPA #### [facility] [address] [address] [address] Grzegorz Wang Potassium [Moles/Vol] 2.7 mmol/L Critically low 3.5-5.1 [facility] Comment on above: Performed By: #### A MY, LIPA #### [facility] [address] [place] [address] Dr. Grzegorz Wang Protein [Mass/Vol] 6.6 g/dL Normal 6.4-8.[address] [facility] Comment on above: Performed By: #### A MY, LIPA #### [facility] [address] [place] [address] Dr. Grzegorz Wang Sodium [Moles/Vol] 143 mmol/L Normal 136-[address] [facility] Comment on above: Performed By: #### A MY, LIPA #### [facility] [address] [place] [address] Dr. Grzegorz Wang Urea nitrogen [Mass/Vol] 12.0 mg/dL Normal 7.0-18.0 [facility] Comment on above: Performed By: #### A MY, LIPA #### [facility] [address] [place] [address] Dr. Grzegorz Wang Urea nitrogen/Creatinine [Mass ratio] 14.0 mg/mg Normal [facility] Comment on above: Performed By: #### A MY, LIPA #### [facility] [address] [place] [address] Dr. Grzegorz Wang PROTIMEon 11-26-2021 INR Coag (PPP) [Relative time] 1.00 {INR} Normal [facility] Comment on above: Performed By: #### C BC #### [facility] [address] [place] [address] Dr. Grzegorz Wang INR GUIDELINES SEE BELOW Normal The [facility] Comment on above: Result Comment: DENTON RED INR: 2.0 - 3.0 CONDITIONS NOT LISTED BELOW 2.5 - 3.5 FOR PROSTHETIC HEART VALVE REPLACEMENT 2.5 - 3.5 RECURRENT THROMBOSIS Performed By: #### C BC #### [facility] [address] [place] [address] Dr. Grzegorz Wang PT Coag (PPP) [Time] 10.8 s Normal 9.0-11.6 [facility] Comment on above: Performed By: #### C BC #### [facility] [address] [place] [address] Dr. Grzegorz Wang PTTon 11-26-2021 aPTT Coag (Bld) [Time] 23.1 s Normal 22.3-36.2 Th e [facility] Comment on above: Performed By: #### C BC #### [facility] [address] [place] [address] Dr. Grzegorz Wang URINE MICROSCOPIC ONLYon BACTERIA NONE SEEN Normal NONE SEEN The [facility] Comment on above: Performed By: #### C BC #### [facility] [address] [place] [address] Dr. Grzegorz Wang Bacteria identified Cx Nom (U) NOT INDICATED Normal The [facility] Comment on above: Performed By: #### C BC #### [facility] [address] [place] [address] Dr. Grzegorz Wang CAST NONE SEEN Normal NONE SEEN [facility] Comment on above: Performed By: #### C BC #### [facility] [address] [place] [address] Dr. Grzegorz Wang Crystals LM Nom (Urine sed) NONE SEEN Normal NONE SEEN [facility] Comment on above: Performed By: #### C BC #### [facility] [address] [place] [address] Dr. Grzegorz Wang Epithelial cells LM Ql (Urine sed) FEW Abnormal NONE SEEN /RARE The [facility] Comment on above: Performed By: #### C BC #### [facility] [address] [place] [address] Dr. Grzegorz Wang MUCOUS NONE SEEN Normal NONE SEEN The [facility] Comment on above: Performed By: #### C BC #### [facility] [address] [place] [address] Dr. Grzegorz Wang RBC 0-2 Normal 0-2 The [facility] Comment on above: Performed By: #### C BC #### [facility] [address] [place] [address] Dr. Grzegorz Wang WBC 0-2 Abnormal NONE SEEN [facility] Comment on above: Performed By: #### C BC #### [facility] [address] [address] [address] Grzegorz Wang XR CHEST 1 Von [...] by: NATACHA CERNA Date: 2021-11-26 14:21 [address] [facility] CT BRAIN HEAD WO CONTRASTon 11-24-2021 CT [...] AGUILAR MD Signed Out: 11/24/21 14:21:18 Normal [facility] ED Adult Data - Texton 11-24 [...] PNED ; Probability: 0 ; Diagnosis Code: [id number] Fall Date: 11/24/2021 ; Diagnosis Type: Reason For Visit ; Confirmation: Confirmed ; Clinical Dx: Fall ; Classification: Medical ; Clinical Service: Emergency medicine ; Code: PNED ; Probability: 0 ; Diagnosis Code: [id number] Procedure History ED Devices Present on Arrival [...] risk situation (congregated living, hemodialysis, infusion clinic, skilled nursing, assisted living, skilled nursing, homeless fci, etc.)? : No Jennifer Mccarthy RN - 11/24/2021 15:25 EDT Normal [facility] ED Discharge Educationon ED Discharge Education [...] your doctor if you can take an lfwz-hfd-uampwyo medicine. When should you call for help? [...] Where can you learn more? Go to [email or web address].Neomobile/patientEd Enter E525 in the search box to learn more about Cuts Closed With Kemi: Care Instructions. Current as of: April 08, 2019 Content Version: 12.7 ? [employer]. Care instructions adapted under license by your healthcare professional. If you have questions about a medical condition or this instruction, always ask your healthcare professional. [employer] disclaims any warranty or liability for your [...] she will (more content not included)... Normal [facility] ED Emergency Severity Index Adult-Texton 11-24-2021 [...] Mccarthy RN - 11/24/2021 12:33 EDT Normal [facility] ED Nrsing Adlt Triage Sep Sc [...] BATISTA, Jennifer - 11/24/2021 13:00 EDT Normal [facility] ED Patient Summaryon 022 ED Patient Summary [facility] Emergency Department Discharge Instructions [address] [place] [address] \.br\(Patient Copy)\.br\ \.br\Name: OZZIE GIFFORD : 1950 \.br\Allergies: penicillin\.br\Diagno sis: Accidental fall; CHI (closed head injury); Contusion of rib on right side; Laceration of scalp\.br\ \.br\ Visit Date: 11/24/2021 12:30:03 \.br\ Current Date Time: 11/24/2021 17:30:08 \.br\Address: [address] [place] [address] [place] [address] \.br\ \.br\ \.br\Primary Care Provider: \.br\Name: NO FAMILY PHYSICIAN, 837\.br\Phone: \.br\ \.br\Emergency Department Care Providers: \.br\ Primary Physician: LUIS MCKEON MD \.br\ \.br\ \.br\.br\Thank you for choosing [facility] for your emergency care. You are [...] nk you again for allowing the [facility] Emergency Department to care for your medical needs. If you have questions about your care or follow up information please contact us at [phone].\.br\.b r\ Follow-Up Instructions\.br\____ _\.br\OZZIE GIFFORD has been given these follow-up instructions:\.br\.b r\.br\With: Address: When: \.br\[facility] [address], [address] [place] [address]\.br\ Business (1) Within 7 to 10 days \.br\.br\.br\With: Address: When: \.br\[address] NO FAMILY [facility]YS[facility] Within 3 to 5 days \.br\.br\.br\.br\ .br\Patient Education Materials\.br\ \. br\OZZIE GIFFORD has been given the following patient education materials:\.br\.br\C uts Closed With Kemi: Care Instructions\.br\Your Care Instructions\.br\A cut can happen anywhere on your body.\.br\The doctor used kemi to close the cut. [place] easily and quickly close a cut, which [...] when to come back to have the kmei removed.\.br\? Take pain medicines exactly as directed. \.br\? If the doctor gave you a prescription medicine for pain, take it as prescribed.\.br\? If you are not taking a prescription pain medicine, ask your doctor if you can take an bwdn-njd-eljkrzy medicine.\.br\When should you call for help?\.br\ Call [...] get b (more content not included)... Normal [facility] ED Physician Reporton 2021 ED Physician [...] The location where the incident occurred was [facility]. Location: Posterior head. The character of symptoms is pain. Therapy today: see nurses notes. Associated symptoms: denies loss of consciousness. This is a 71 y/o female presenting to the ED via EMS for evaluation of a mechanical fall. [place] and she was going down steps and [...] WO CONTRAST (more content not included)... Normal [facility] ED Pre-Arrival Formon 2021 ED Pre-Arrival Form Pre-Arrival Summary Name: KARTIK, Current Date: 11/24/2021 12:31:19 EDT Gender: Date of : Age: Pre-Arrival Type: EMS ETA: 11/24/2021 12:53:00 EDT Primary Care Physician: Presenting Problem: Pre-Arrival User: Kailyn Jacobs RN Referring Source: Location: [address] [place] [address] Emergency Department [address] [place] [address]. [place] [address] Notes: Vital Signs: Doctor Call Back: DNR Status: Miscellaneous Issues: Normal [facility] ED Progress Noteon 2 ED Progress [...] understanding, pt ambulatory with steady gait Normal [facility] ED Triage Adult-Texton 11-24 ED Triage [...] PNED ; Probability: 0 ; Diagnosis Code: [id number] (As Of: 11/24/2021 13:00:25 EDT) Vitals/Ht/Wt Temperature [...] Mccarthy RN - 11/24/2021 12:59 EDT Normal [facility] Urine culture routineOrdered By: Rafiq Bahena on 11-23-2021 Bacteria identified Cx Nom (U) Escherichia coli [facility] Albumin [Mass/volume] in Ser um or PlasmaOrdered By: Ashleigh Rashid on 11-22-2021 Albumin [Mass/Vol] 3.0 g/dL 3.2-5.5 [facility] Basophils Auto (Bld) [#/Vol] Ordered By: Ashleigh Rashid on 11-22-2021 Basophils (Bld) [#/Vol] 0.0 10*3/uL 0.0-0.[address] [facility] Basophils/100 WBC Auto (Bld) Ordered By: Ashleigh Rashid on 11-22-2021 Basophils/100 WBC (Bld) 0.6 % . F [facility] Creatinine and Glomerular fi ltration rate.predicted panel (S/P/Bld)Ordered By: Ashleigh Rashid on 11-22-2021 Creatinine [Mass/Vol] 1.10 mg/dL 0.44-1.03 [facility] Comment on above: Delta: 2.08 on 11/21 Eosinophils Auto (Bld) [#/Vo l]Ordered By: Ashleigh Rashid on 11-22-2021 Eosinophils (Bld) [#/Vol] 0.2 10*3/uL 0.0-0.[address] [facility] Eosinophils/100 WBC Auto (Bl d)Ordered By: Ashleigh Rashid on 11-22-2021 Eosinophils/100 WBC (Bld) 4.4 % . [facility] Erythrocyte distribution wid th Auto (RBC) [Ratio]Ordered By: Ashleigh Rashid on 11-22-2021 Erythrocyte distribution width (RBC) [Ratio] 20.7 % 11.9-15.[address] [facility] Estimated glomerular filtrat ion rate (GFR) non- AmericanOrdered By: Ashleigh Rashid on 11-22-2021 GFR/1.73 sq M.predicted among non-blacks MDRD (S/P/Bld) [Vol rate/Area] 49 mL/Min [facility] Globulin Calc (S) [Mass/Vol] Ordered By: Ashleigh Rashid on 11-22-2021 Globulin (S) [Mass/Vol] 2.4 g/dL F [facility] Hematocrit Auto (Bld) [Volum e fraction]Ordered By: Ashleigh Rashid on 11-22-2021 Hematocrit (Bld) [Volume fraction] 36.9 % 34.0-46.[address] [facility] Hemoglobin [Mass/volume] in BloodOrdered By: Ashleigh Rashid on 11-22-2021 Hemoglobin (Bld) [Mass/Vol] 12.1 g/dL 11.8-15.[address] [facility] Laboratory - Chemistry and C hemistry - challengeOrdered By: Ashleigh Rashid on 11-22-2021 Magnesium [Mass/Vol] 2.1 mg/dL 1.6-2.6 [facility] Laboratory - Hematology and Cell countsOrdered By: Ashleigh Rashid on 11-22-2021 Nucleated RBC/100 WBC (Bld) [Ratio] 0.1 % 0-0.[address] [facility] Leukocytes [#/volume] in Blo od by Automated countOrdered By: Ashleigh Rashid on 11-22-2021 WBC (Bld) [#/Vol] 4.7 10*3/uL 4.5-11.0 [facility] Lymphocytes Auto (Bld) [#/Vo l]Ordered By: Ashleigh Rashid on 11-22-2021 Lymphocytes (Bld) [#/Vol] 1.2 10*3/uL 1.00-4.[address] [facility] Lymphocytes/100 WBC Auto (Bl d)Ordered By: Ashleigh Rashid on 11-22-2021 Lymphocytes/100 WBC (Bld) 26.0 % . [facility] MCH Auto (RBC) [Entitic mass ]Ordered By: Ashleigh Rashid on 11-22-2021 MCH (RBC) [Entitic mass] 27.2 pg 24.7-34.[address] [facility] MCHC Auto (RBC) [Mass/Vol]Or dered By: Ashleigh Rashid on 11-22-2021 MCHC (RBC) [Mass/Vol] 32.6 g/dL 32.0-35.0 [facility] MCV Auto (RBC) [Entitic vol] Ordered By: Ashleigh Rashid on 11-22-2021 MCV (RBC) [Entitic vol] 83.5 fL 80-100 F [facility] Monocytes Auto (Bld) [#/Vol] Ordered By: Ashleigh Rashid on 11-22-2021 Monocytes (Bld) [#/Vol] 0.4 10*3/uL 0.0-0.[address] [facility] Monocytes/100 WBC Auto (Bld) Ordered By: Ashleigh Rashid on 11-22-2021 Monocytes/100 WBC (Bld) 8.4 % . [facility] Neutrophils Auto (Bld) [#/Vo l]Ordered By: Ashleigh Rashid on 11-22-2021 Neutrophils (Bld) [#/Vol] 2.8 10*3/uL 1.8-7.[address] [facility] Neutrophils/100 WBC Auto (Bl d)Ordered By: Ashleigh Rashid on 11-22-2021 Neutrophils/100 WBC (Bld) 60.6 % . [facility] No Panel InformationOrdered By: Ashleigh Rashid on 11-22-2021 Estimated GFR () 59 mL/Min [facility] Comment on above: GFR estimated refere nce range: According to KDOQI guidelines, <60 ml/min/1.73m2 is sufficient to diagnose a patient with chronic kidney disease. Pharmacy Creatinine Clearance (Chem 44.[address] [facility] Platelet mean volume Auto (B ld) [Entitic vol]Ordered By: Ashleigh Rashid on 11-22-2021 Platelet mean volume (Bld) [Entitic vol] 9.7 fL 6.3-10.[address] [facility] Platelets Auto (Bld) [#/Vol] Ordered By: Ashleigh Rashid on 11-22-2021 Platelets (Bld) [#/Vol] 184 10*3/uL 150-[address] [facility] Protein [Mass/volume] in Ser um or PlasmaOrdered By: Ashleigh Rashid on 11-22-2021 Protein [Mass/Vol] 5.4 g/dL 6.1-7.9 [facility] RBC Auto (Bld) [#/Vol]Ordere d By: Ashleigh Rashid on 11-22-2021 RBC (Bld) [#/Vol] 4.43 10*6/uL 3.60-5.00 [facility] Serum or plasma alanine zapata otransferase measurement without P-5'-P (enzymatic activiOrdered By: Ashleigh Rashid on 11-22-2021 ALT No additional P-5'-P [Catalytic activity/Vol] 16 U/L 10-[address] [facility] Serum or plasma albumin/glob ulin mass ratioOrdered By: Ashleigh Rashid on 11-22-2021 Albumin/Globulin [Mass ratio] 1.3 {ratio} [facility] Serum or plasma alkaline brandy sphatase measurement (enzymatic activity/volume)Ordered By: Ashleigh Rashid on 11-22-2021 ALP [Catalytic activity/Vol] 70 U/L 32-[address] [facility] Serum or plasma anion gap de terminationOrdered By: Ashleigh Rasihd on 11-22-2021 Anion gap [Moles/Vol] 12.2 mmol/L 6.0-15.0 [facility] Serum or plasma aspartate am inotransferase measurement (enzymatic activity/volume)Ordered By: Ashleigh Rashid on 11-22-2021 AST [Catalytic activity/Vol] 15 U/L 10-[address] [facility] Serum or plasma calcium lay urement (mass/volume)Ordered By: Ashleigh Rashid on 11-22-2021 Calcium [Mass/Vol] 8.9 mg/dL 8.2-10.2 [facility] Serum or plasma chloride rosaline surement (moles/volume)Ordered By: Ashleigh Rashid on 11-22-2021 Chloride [Moles/Vol] 115 mmol/L 95-114 [facility] Serum or plasma glucose lay urement (mass/volume)Ordered By: Ashleigh Rashid on 11-22-2021 Glucose [Mass/Vol] 93 mg/dL 70-100 [facility] Comment on above: ADA recommended refe rence rangeRandom Glucose Reference Range is dependent on time and content of last meal. Glucose of more than 200 mg/dL in a nonstressed, ambulatory subject supports the diagnosis of Diabetes Mellitus. Serum or plasma potassium me asurement (moles/volume)Ordered By: Ashleigh Rashid on 11-22-2021 Potassium [Moles/Vol] 3.1 mmol/L 3.5-5.1 [facility] Serum or plasma sodium measu rement (moles/volume)Ordered By: Ashleigh Rashid on 11-22-2021 Sodium [Moles/Vol] 147 mmol/L 136-146 [facility] Serum or plasma total biliru bin measurement (mass/volume)Ordered By: Ashleigh Rashid on 11-22-2021 Bilirubin [Mass/Vol] 0.7 mg/dL 0.3-1.2 [facility] Serum or plasma total carbon dioxide measurement (moles/volume)Ordered By: Ashleigh Rashid on 11-22-2021 CO2 [Moles/Vol] 22.9 mmol/L 22.0-30.0 [facility] Serum or plasma urea nitroge n measurement (mass/volume)Ordered By: Ashleigh Rashid on 11-22-2021 Urea nitrogen [Mass/Vol] 28 mg/dL 9-[address] [facility] Amphetamine Screen Ql (U)Ord ered By: Rafiq Bahena on 11-21-2021 Amphetamines Ql (U) Negative Negative [facility] Automated erythrocytes count in urine sediment (number/area)Ordered By: Rafiq Bahena on 11-21-2021 RBC Auto (Urine sed) [#/Area] 0-1 [HPF] 0-[address] [facility] Automated leukocytes count i n urine sediment (number/area)Ordered By: Rafiq Bahena on 11-21-2021 WBC Auto (Urine sed) [#/Area] 3-4 [HPF] 0-[address] [facility] Barbiturates [Presence] in U rineOrdered By: Rafiq Bahena on 11-21-2021 Barbiturates Ql (U) Negative Negative [facility] Basophils Auto (Bld) [#/Vol] Ordered By: Rafiq Bahena on 11-21-2021 Basophils (Bld) [#/Vol] 0.0 10*3/uL 0.0-0.[address] [facility] Basophils/100 WBC Auto (Bld) Ordered By: Rafiq Bahena on 11-21-2021 Basophils/100 WBC (Bld) 0.8 % . [facility] Benzodiazepines [Presence] i n UrineOrdered By: Rafiq Bahena on 11-21-2021 Benzodiazepines Ql (U) Negative Negative [facility] Bilirubin Test strip Ql (U)O rdered By: Rafiq Bahena on 11-21-2021 Bilirubin Ql (U) Negative Negative [facility] Blood hemoglobin measurement (mass/volume)Ordered By: Rafiq Bahena on 11-21-2021 Hemoglobin (Bld) [Mass/Vol] 11.6 g/dL 11.8-15.[address] [facility] Blood leukocytes automated c ount (number/volume)Ordered By: Rafiq Bahena on 11-21-2021 WBC (Bld) [#/Vol] 5.3 10*3/uL 4.5-11.0 [facility] Body fluid albumin measureme nt (mass/volume)Ordered By: Rafiq Bahena on 11-21-2021 Albumin (Body fld) [Mass/Vol] 3.4 g/dL 3.2-5.[address] [facility] COVID CepheidOrdered By: Dagoberto Rashid on 11-21-2021 SARS-CoV-2 (COVID-19) Ab IA Ql Negative Negative [facility] Comment on above: This is a duplicate [employer] Xpert Xpress CoV-2/Flu/RSV Plus RNA by RT-PCR result to be used for statistical tracking purpose only. SARS-CoV-2 (COVID-19) RNA SIOBHAN+probe Ql (Unsp spec) [facility] COVID-19 Positive/NegativeOr dered By: Rafiq Bahena on 11-21-2021 SARS-CoV-2 (COVID-19) N gene SIOBHAN+probe Ql (Resp) Indeterminate Negative [facility] Comment on above: Testing for SARS-CoV -2 by RT-PCRThis test was developed and its performance characteristics determined by [employer] ([employer]) and validated at the [facility]. This test has not been FDA [...] (COVID-19) Ag IA.rapid Ql (Resp) Negative Negative [facility] Comment on above: This is a duplicate [employer] SARS Antigen (WALKER) result to be used for statistical tracking purpose only. Cannabinoids [Presence] in U rine by Screen methodOrdered By: Rafiq Bahena on 11-21-2021 Cannabinoids Screen Ql (U) Negative Negative [facility] Comment on above: These are unconfirme d results and should not be used for legal purposes. Drug Cut-Off Concentration: AMPH 1000 ng/mL RONALD 200 ng/mL CARMELA 200 ng/mL COCM 300 ng/mL OP 300 ng/mL PCP 25 ng/mL THC 20 ng/mL Color Auto (U)Ordered By: Vishnu Bahena on 11-21-2021 Color (U) Yellow Yellow [facility] Creatinine and Glomerular fi ltration rate.predicted panel (S/P/Bld)Ordered By: Rafiq Bahena on 11-21-2021 Creatinine [Mass/Vol] 2.08 mg/dL 0.44-1.03 [facility] Eosinophils Auto (Bld) [#/Vo l]Ordered By: Rafiq Bahena on 11-21-2021 Eosinophils (Bld) [#/Vol] 0.2 10*3/uL 0.0-0.[address] [facility] Eosinophils/100 WBC Auto (Bl d)Ordered By: Rafiq Bahena on 11-21-2021 Eosinophils/100 WBC (Bld) 3.7 % . [facility] Erythrocyte distribution wid th Auto (RBC) [Ratio]Ordered By: Rafiq Bahena on 11-21-2021 Erythrocyte distribution width (RBC) [Ratio] 20.4 % 11.9-15.[address] [facility] Estimated glomerular filtrat ion rate (GFR) non- AmericanOrdered By: Rafiq Bahena on 11-21-2021 GFR/1.73 sq M.predicted among non-blacks MDRD (S/P/Bld) [Vol rate/Area] 23 mL/Min [facility] Globulin Calc (S) [Mass/Vol] Ordered By: Rafiq Bahena on 11-21-2021 Globulin (S) [Mass/Vol] 2.1 g/dL F [facility] Glucose Glucometer (BldC) [M ass/Vol]Ordered By: Rafiq Bahena on 11-21-2021 Glucose [Mass/Vol] 134 mg/dL [facility] Comment on above: Random Glucose Refer ence Range is dependent on time and content of last meal. Glucose of more than 200 mg/dL in a nonstressed, ambulatory subject supports the diagnosis of Diabetes Mellitus. Hematocrit Auto (Bld) [Volum e fraction]Ordered By: Rafiq Bahena on 11-21-2021 Hematocrit (Bld) [Volume fraction] 35.6 % 34.0-46.[address] [facility] Ketones Auto test strip (U) [Mass/Vol]Ordered By: Rafiq Bahena on 11-21-2021 Ketones (U) [Mass/Vol] Negative Negative [facility] Laboratory - Chemistry and C hemistry - challengeOrdered By: Rafiq Bahena on 11-21-2021 CO2 [Moles/Vol] 23.8 mmol/L 23.0-27.0 [facility] HCO3 (Bld) [Moles/Vol] 22.6 mmol/L 23.0-29.0 [facility] Laboratory - Drug toxicology Ordered By: Rafiq Bahena on 11-21-2021 Opiates Ql (U) Negative Negative [facility] Laboratory - Hematology and Cell countsOrdered By: Rafiq Bahena on 11-21-2021 Nucleated RBC/100 WBC (Bld) [Ratio] 0.0 % 0-0.[address] [facility] Laboratory - UrinalysisOrder ed By: Rafiq Bahena on 11-21-2021 Hyaline casts LM Ql (Urine sed) 0-8 [LPF] 0-[address] [facility] Lymphocytes Auto (Bld) [#/Vo l]Ordered By: Rafiq Bahena on 11-21-2021 Lymphocytes (Bld) [#/Vol] 1.1 10*3/uL 1.00-4.[address] [facility] Lymphocytes/100 WBC Auto (Bl d)Ordered By: Rafiq Bahena on 11-21-2021 Lymphocytes/100 WBC (Bld) 20.4 % . [facility] MCH Auto (RBC) [Entitic mass ]Ordered By: Rafiq Bahena on 11-21-2021 MCH (RBC) [Entitic mass] 26.9 pg 24.7-34.[address] [facility] MCHC Auto (RBC) [Mass/Vol]Or dered By: Rafiq Bahena on 11-21-2021 MCHC (RBC) [Mass/Vol] 32.6 g/dL 32.0-35.0 Fir [facility] MCV Auto (RBC) [Entitic vol] Ordered By: Rafiq Bahena on 11-21-2021 MCV (RBC) [Entitic vol] 82.5 fL 80-100 [facility] Monocyte %Ordered By: Rafiq Bahena on 11-21-2021 Monocyte % 17 umol/L -[address] [facility] Monocytes Auto (Bld) [#/Vol] Ordered By: Rafiq Bahena on 11-21-2021 Monocytes (Bld) [#/Vol] 0.5 10*3/uL 0.0-0.[address] [facility] Monocytes/100 WBC Auto (Bld) Ordered By: Rafiq Bahena on 11-21-2021 Monocytes/100 WBC (Bld) 9.9 % . [facility] Neutrophils Auto (Bld) [#/Vo l]Ordered By: Rafiq Bahena on 11-21-2021 Neutrophils (Bld) [#/Vol] 3.5 10*3/uL 1.8-7.[address] [facility] Neutrophils/100 WBC Auto (Bl d)Ordered By: Rafiq Bahena on 11-21-2021 Neutrophils/100 WBC (Bld) 65.2 % . [facility] Nitrite Test strip Ql (U)Ord ered By: Rafiq Bahena on 11-21-2021 Nitrite Ql (U) Positive Negative [facility] No Panel InformationOrdered By: Ashleigh Rashid on 11-21-2021 Vitamin B12 Level > 7500 pg/mL 180-914 [facility] No Panel InformationOrdered By: Rafiq Bahena on 11-21-2021 Arterial Blood Base Excess -1.9 mmol/L -3.0-3.[address] [facility] Arterial Blood Oxygen Content 7.1 mmol/L 6.6-9.[address] [facility] Arterial Blood Oxygen Saturation 95.9 % 95.0-100.[address] [facility] Arterial Blood Partial Pressure CO2 37.8 mm[Hg] 35.0-45.[address] [facility] Arterial Blood Partial Pressure O2 82.7 mm[Hg] 80.0-100.[address] [facility] Arterial Blood pH 7.40 7.35-7.45 [facility] Blood Gas Critical Value See comment [facility] Comment on above: Critical Value sargent d on: 11/21/2021 at 06:17 Blood Gas Sample Site Left radial [facility] FiO2 21 % [facility] Estimated GFR () 28 mL/Min [facility] Comment on above: GFR estimated refere nce range: According to KDOQI guidelines, <60 ml/min/1.73m2 is sufficient to diagnose a patient with chronic kidney disease. Pharmacy Creatinine Clearance (Chem 22.[address] [facility] Bedside Glucose Comment Glu2: cleaned meter [facility] Phencyclidine Screen Ql (U)O rdered By: Rafiq Bahena on 11-21-2021 Phencyclidine Ql (U) Negative Negative [facility] Platelet mean volume Auto (B ld) [Entitic vol]Ordered By: Rafiq Bahena on 11-21-2021 Platelet mean volume (Bld) [Entitic vol] 9.6 fL 6.3-10.[address] [facility] Platelets Auto (Bld) [#/Vol] Ordered By: Rafiq Bahena on 11-21-2021 Platelets (Bld) [#/Vol] 140 10*3/uL 150-[address] [facility] Protein Auto test strip (U) [Mass/Vol]Ordered By: Rafiq Bahena on 11-21-2021 Protein (U) [Mass/Vol] Negative Negative [facility] Protein [Mass/volume] in Ser um or PlasmaOrdered By: Rafiq Bahena on 11-21-2021 Protein [Mass/Vol] 5.5 g/dL 6.1-7.9 [facility] RBC Auto (Bld) [#/Vol]Ordere d By: Rafiq Bahena on 11-21-2021 RBC (Bld) [#/Vol] 4.31 10*6/uL 3.60-5.00 [facility] Serum or plasma alanine zapata otransferase measurement without P-5'-P (enzymatic activiOrdered By: Rafiq Bahena on 11-21-2021 ALT No additional P-5'-P [Catalytic activity/Vol] 17 U/L [facility] Serum or plasma albumin/glob ulin mass ratioOrdered By: Rafiq Bahena on 11-21-2021 Albumin/Globulin [Mass ratio] 1.6 {ratio} [facility] Serum or plasma alkaline brandy sphatase measurement (enzymatic activity/volume)Ordered By: Rafiq Bahena on 11-21-2021 ALP [Catalytic activity/Vol] 74 U/L 32-[address] [facility] Serum or plasma anion gap de terminationOrdered By: Rafiq Bahena on 11-21-2021 Anion gap [Moles/Vol] 14.6 mmol/L 6.0-15.0 [facility] Serum or plasma aspartate am inotransferase measurement (enzymatic activity/volume)Ordered By: Rafiq Bahena on 11-21-2021 AST [Catalytic activity/Vol] 19 U/L [facility] Serum or plasma calcium lay urement (mass/volume)Ordered By: Rafiq Bahena on 11-21-2021 Calcium [Mass/Vol] 9.1 mg/dL 8.2-10.2 [facility] Serum or plasma chloride rosaline surement (moles/volume)Ordered By: Rafiq Bahena on 11-21-2021 Chloride [Moles/Vol] 107 mmol/L 95-114 [facility] Serum or plasma ethanol lay urement (mass/volume)Ordered By: Rafiq Bahena on 11-21-2021 Ethanol [Mass/Vol] mg/dL [facility] Ethanol [Mass/Vol] TNP [facility] Comment on above: Test not performed Serum or plasma glucose lay urement (mass/volume)Ordered By: Rafiq Bahena on 11-21-2021 Glucose [Mass/Vol] 124 mg/dL 70-100 [facility] Comment on above: ADA recommended refe rence rangeRandom Glucose Reference Range is dependent on time and content of last meal. Glucose of more than 200 mg/dL in a nonstressed, ambulatory subject supports the diagnosis of Diabetes Mellitus. Serum or plasma potassium me asurement (moles/volume)Ordered By: Rafiq Bahena on 11-21-2021 Potassium [Moles/Vol] 3.1 mmol/L 3.5-5.1 [facility] Serum or plasma sodium measu rement (moles/volume)Ordered By: Rafiq Bahena on 11-21-2021 Sodium [Moles/Vol] 142 mmol/L 136-146 [facility] Serum or plasma total biliru bin measurement (mass/volume)Ordered By: Rafiq Bahena on 11-21-2021 Bilirubin [Mass/Vol] 0.3 mg/dL 0.3-1.2 [facility] Serum or plasma total carbon dioxide measurement (moles/volume)Ordered By: Rafiq Bahena on 11-21-2021 CO2 [Moles/Vol] 23.5 mmol/L 22.0-30.0 [facility] Serum or plasma urea nitroge n measurement (mass/volume)Ordered By: Rafiq Bahena on 11-21-2021 Urea nitrogen [Mass/Vol] 49 mg/dL 9- [facility] Specific gravity Auto test s trip (U) [Rel density]Ordered By: Rafiq Bahena on 11-21-2021 Specific gravity (U) [Rel density] 1.010 1.001-1.[address] [facility] Squamous epithelial cells de tection in urine sediment by light microscopyOrdered By: Rafiq Bahena 11-21-2021 Epithelial cells.squamous LM Ql (Urine sed) 1-2 [HPF] 0-[address] [facility] TSH DL <= 0.005 mIU/L QnOrde red By: Rafiq Bahena on 11-21-2021 TSH Qn 2.40 m[IU]/L 0.45-5.[address] [facility] Thyroxine (T4) free [Mass/vo lume] in Serum or PlasmaOrdered By: Rafiq Bahena on 11-21-2021 Free T4 [Mass/Vol] 0.68 ng/dL 0.61-1.12 [facility] Troponin I.cardiac [Mass/vol ume] in Serum or Plasma by High sensitivity methodOrdered By: Rafiq Bahena on 11-21-2021 Troponin I.cardiac High sensitivity method [Mass/Vol] 6 pg/mL 0-[address] [facility] Urine bacteria detection by automated methodOrdered By: Rafiq Bahena on 11-21-2021 Bacteria Auto Ql (U) 2+ None Seen [facility] Urine clarity by refractomet ry automatedOrdered By: Rafiq Bahena on 11-21-2021 Clarity Refractometry automated (U) Clear Clear [facility] Urine cocaine detectionOrder ed By: Rafiq Bahena on 11-21-2021 Cocaine Ql (U) Negative Negative [facility] Urine glucose measurement by automated test strip (mass/volume)Ordered By: Rafiq Bahena on 11-21-2021 Glucose Auto test strip (U) [Mass/Vol] Normal mg/dL Normal [facility] Urine hemoglobin detection b y automated test stripOrdered By: Rafiq Bahena on 11-21-2021 Hemoglobin Auto test strip Ql (U) Negative Negative [facility] Urine leukocyte esterase det ection by automated test stripOrdered By: Rafiq Bahena on 11-21-2021 Leukocyte esterase Auto test strip Ql (U) 1+ Negative [facility] Urobilinogen Auto test strip (U) [Mass/Vol]Ordered By: Rafiq Bahena on 11-21-2021 Urobilinogen (U) [Mass/Vol] Normal mg/dL Normal [facility] pH Auto test strip (U)Ordere d By: Rafiq Bahena on 11-21-2021 pH (U) 5.5 [pH] 5.0-9.[address] [facility] CBC AUTO DIFFon 10-24-2021 BASO # 0.1 103/ul Normal 0.0-0.1 [facility] Comment on above: Performed By: #### C BC #### [facility] [address] [address] [address] Grzegorz Wang Basophils/100 WBC (Bld) 0.6 % Normal 0.2-2.0 [facility] Comment on above: Performed By: #### C BC #### [facility] [address] [address] [address] Grzegorz Wang EO # 0.4 103/ul Normal 0.0-0.7 [facility] Comment on above: Performed By: #### C BC #### [facility] [address] [place] [address] Dr. Grzegorz Wang Eosinophils/100 WBC (Bld) 5.0 % Normal 0.9-7.0 [facility] Comment on above: Performed By: #### C BC #### [facility] [address] [place] [address] Dr. Grzegorz Wang Erythrocyte distribution width (RBC) [Ratio] 18.6 % Critically high 11.0-15.0 [facility] Comment on above: Performed By: #### C BC #### [facility] [address] [place] [address] Dr. Grzegorz Wang Hematocrit (Bld) [Volume fraction] 35.7 % Critically low 36.0-48.0 [facility] Comment on above: Performed By: #### C BC #### [facility] [address] [place] [address] Dr. Grzegorz Wang Hemoglobin (Bld) [Mass/Vol] 11.2 g/dL Critically low 12.0-16.0 [facility] Comment on above: Performed By: #### C BC #### [facility] [address] [place] [address] Dr. Grzegorz Wang IG # 0.04 10e3/ul Critically high 0.00-0.03 [facility] Comment on above: Performed By: #### C BC #### [facility] [address] [place] [address] Dr. Grzegorz Wang IG % 0.5 % Normal 0.0-0.5 [facility] Comment on above: Performed By: #### C BC #### [facility] [address] [place] [address] Dr. Grzegorz Wang LYMPH # 1.9 103/ul Normal 1.2-3.8 [facility] Comment on above: Performed By: #### C BC #### [facility] [address] [place] [address] Dr. Grzegorz Wang Lymphocytes/100 WBC (Bld) 22.2 % Normal 20.5-60.0 [facility] Comment on above: Performed By: #### C BC #### [facility] [address] [place] [address] Dr. Grzegorz Wang MANUAL DIFF REQ NO Normal [facility] Comment on above: Performed By: #### C BC #### [facility] [address] [place] [address] Dr. Grzegorz Wang MCH (RBC) [Entitic mass] 26.4 pg Critically low 26.7-34.0 [facility] Comment on above: Performed By: #### C BC #### [facility] [facility] [address] [place] [address] Dr. Grzegorz Wang MCHC (RBC) [Mass/Vol] 31.4 g/dL Normal 29.9-35.2 [facility] Comment on above: Performed By: #### C BC #### [facility] [address] [place] [address] Dr. Grzegorz Wang MCV (RBC) [Entitic vol] 84.2 fL Normal 81.0-99.0 [facility] Comment on above: Performed By: #### C BC #### [facility] [address] [place] [address] Dr. Grzegorz Wang MONO # 0.8 103/ul Normal 0.3-0.8 [facility] Comment on above: Performed By: #### C BC #### [facility] [address] [place] [address] Dr. Grzegorz Wang Monocytes/100 WBC (Bld) 10.0 % Normal 1.7-12.0 [facility] Comment on above: Performed By: #### C BC #### [facility] [address] [place] [address] Dr. Grzegorz Wang NEUT # 5.2 103/ul Normal 1.4-6.5 [facility] Comment on above: Performed By: #### C BC #### [facility] [address] [place] [address] Dr. Grzegorz Wang Neutrophils/100 WBC (Bld) 61.7 % Normal 43.0-75.0 [facility] Comment on above: Performed By: #### C BC #### [facility] [address] [place] [address] Dr. Grzegorz Wang Platelet mean volume (Bld) [Entitic vol] 11.8 fL Normal 9.5-13.5 [facility] Comment on above: Performed By: #### C BC #### [facility] [address] [place] [address] Dr. Grzegorz Wang PLT 219 103/ul Normal 150-450 [facility] Comment on above: Performed By: #### C BC #### [facility] [address] [place] [address] Dr. Grzegorz Wang RBC 4.24 106/ul Normal 4.20-5.40 [facility] Comment on above: Performed By: #### C BC #### [facility] [address] [place] [address] Dr. Grzegorz Wang WBC 8.4 103/ul Normal 4.0-11.0 [facility] Comment on above: Performed By: #### C BC #### [facility] [address] [place] [address] Dr. Grzegorz Wang PRBC LEUKOREDUCEDon 10-23-19 ABO and Rh group Nom (Bld) Cross Match Result Compatible Unit Blood Type O Pos Unit Number [id number] Status Information Transfused Product ID Red Blood Cells Product Code [id number] Cross Match Result Compatible Blood Bank Notes CALLED SARATH GLYNN RN ON [facility] 10/17/21 @ 0850 Unit Blood Type O Neg Unit Number [id number] Status Information Transfused Product ID Red Blood Cells Product Code [id number] Normal [facility] Comment on above: Performed By: #### C BC #### [facility] [address] [place] [address] Dr. Grzegorz Wang ABO and Rh group Nom (Bld) Cross Match Result Compatible Unit Blood Type O Neg Unit Number [id number] Status Information Transfused Product ID Red Blood Cells Product Code [id number] Cross Match Result Compatible Unit Blood Type O Neg Unit Number [id number] Status Information Transfused Product ID Red Blood Cells Product Code [id number] Normal [facility] Comment on above: Performed By: #### C BC #### [facility] [address] [place] [address] Dr. Grzegorz Wang CBC AUTO DIFFon 10-18-2021 BASO # 0.0 103/ul Normal 0.0-0.1 [facility] Comment on above: Performed By: #### C BC #### [facility] [address] [place] [address] Dr. Grzegorz Wang Basophils/100 WBC (Bld) 0.7 % Normal 0.2-2.0 [facility] Comment on above: Performed By: #### C BC #### [facility] [address] [place] [address] Dr. Grzegorz Wang EO # 0.2 103/ul Normal 0.0-0.7 [facility] Comment on above: Performed By: #### C BC #### [facility] [address] [place] [address] Dr. Grzegorz Wang Eosinophils/100 WBC (Bld) 2.9 % Normal 0.9-7.0 [facility] Comment on above: Performed By: #### C BC #### [facility] [address] [place] [address] Dr. Grzegorz Wang Erythrocyte distribution width (RBC) [Ratio] 17.8 % Critically high 11.0-15.0 [facility] Comment on above: Performed By: #### C BC #### [facility] [address] [place] [address] Dr. Grzegorz Wang Hematocrit (Bld) [Volume fraction] 30.1 % Critically low 36.0-48.0 [facility] Comment on above: Performed By: #### C BC #### [facility] [address] [place] [address] Dr. Grzegorz Wang Hemoglobin (Bld) [Mass/Vol] 9.6 g/dL Critically low 12.0-16.0 [facility] Comment on above: Performed By: #### C BC #### [facility] [address] [place] [address] Dr. Grzegorz Wang IG # 0.08 10e3/ul Critically high 0.00-0.03 [facility] Comment on above: Performed By: #### C BC #### [facility] [address] [place] [address] Dr. Grzegorz Wang IG % 1.3 % Critically high 0.0-0.5 [facility] Comment on above: Performed By: #### C BC #### [facility] [address] [place] [address] Dr. Grzegorz Wang LYMPH # 1.8 103/ul Normal 1.2-3.8 [facility] Comment on above: Performed By: #### C BC #### [facility] [address] [place] [address] Dr. Grzegorz Wang Lymphocytes/100 WBC (Bld) 29.4 % Normal 20.5-60.0 [facility] Comment on above: Performed By: #### C BC #### [facility] [address] [place] [address] Dr. Grzegorz Wang MANUAL DIFF REQ NO Normal [facility] Comment on above: Performed By: #### C BC #### [facility] [address] [place] [address] Dr. Grzegorz Wang MCH (RBC) [Entitic mass] 25.9 pg Critically low 26.7-34.0 [facility] Comment on above: Performed By: #### C BC #### [facility] [address] [place] [address] Dr. Grzegorz Wang MCHC (RBC) [Mass/Vol] 31.9 g/dL Normal 29.9-35.2 [facility] Comment on above: Performed By: #### C BC #### [facility] [address] [place] [address] Dr. Grzegorz Wang MCV (RBC) [Entitic vol] 81.4 fL Normal 81.0-99.0 [facility] Comment on above: Performed By: #### C BC #### [facility] [address] [place] [address] Dr. Grzegorz Wang MONO # 0.7 103/ul Normal 0.3-0.8 [facility] Comment on above: Performed By: #### C BC #### [facility] [address] [place] [address] Dr. Grzegorz Wang Monocytes/100 WBC (Bld) 11.9 % Normal 1.7-12.0 [facility] Comment on above: Performed By: #### C BC #### [facility] [address] [place] [address] Dr. Grzegorz Wang NEUT # 3.3 103/ul Normal 1.4-6.5 [facility] Comment on above: Performed By: #### C BC #### [facility] [address] [place] [address] Dr. Grzegorz Wang Neutrophils/100 WBC (Bld) 53.8 % Normal 43.0-75.0 [facility] Comment on above: Performed By: #### C BC #### [facility] [address] [place] [address] Dr. Grzegorz Wang Platelet mean volume (Bld) [Entitic vol] 10.5 fL Normal 9.5-13.5 [facility] Comment on above: Performed By: #### C BC #### [facility] [address] [place] [address] Dr. Grzegorz Wang PLT 206 103/ul Normal 150-450 [facility] Comment on above: Performed By: #### C BC #### [facility] [address] [place] [address] Dr. Grzegorz Wang RBC 3.70 106/ul Critically low 4.20-5.40 [facility] Comment on above: Performed By: #### C BC #### [facility] [address] [place] [address] Dr. Grzegorz Wang WBC 6.1 103/ul Normal 4.0-11.0 [facility] Comment on above: Performed By: #### C BC #### [facility] [address] [place] [address] Dr. Grzegorz Wang PROF CHEM 8 (BAS METB)on Anion gap [Moles/Vol] 9.6 mmol/L Normal [facility] Comment on above: Performed By: #### C BC #### [facility] [address] [address] [address] Grzegorz Wang Calcium [Mass/Vol] 8.5 mg/dL Normal 8.5-10.1 [facility] Comment on above: Performed By: #### C BC #### [facility] [address] [address] [address] Grzegorz Wang Chloride [Moles/Vol] 113 mmol/L Critically high 98-107 [facility] Comment on above: Performed By: #### C BC #### [facility] [address] [place] [address] Dr. Grzegorz Wang CO2 [Moles/Vol] 26.6 mmol/L Normal 21.0-32.0 [facility] Comment on above: Performed By: #### C BC #### [facility] [address] [place] [address] Dr. Grzegorz Wang Creatinine [Mass/Vol] 0.94 mg/dL Normal 0.55-1.02 [facility] Comment on above: Performed By: #### C BC #### [facility] [address] [place] [address] Dr. Grzegorz Wang EGFR-AF BERMUDIAN >60 Normal >=60 [facility] Comment on above: Performed By: #### C BC #### [facility] [address] [address] [address] Grzegorz Wang EGFR-NON AF BERMUDIAN 58 mL/min/1.73m2 Critically low >=60 [facility] Comment on above: Performed By: #### C BC #### [facility] [address] [address] [address] Grzegorz Wang Glucose [Mass/Vol] 97 mg/dL Normal 74-106 [facility] Comment on above: Performed By: #### C BC #### [facility] [address] [place] [address] Dr. Grzegorz Wang Potassium [Moles/Vol] 3.2 mmol/L Critically low 3.5-5.1 [facility] Comment on above: Performed By: #### C BC #### [facility] [address] [place] [address] Dr. Grzegorz Wang Sodium [Moles/Vol] 146 mmol/L Critically high 136-145 [facility] Comment on above: Performed By: #### C BC #### [facility] [address] [place] [address] Dr. Grzegorz Wang Urea nitrogen [Mass/Vol] 38.0 mg/dL Critically high 7.0-18.0 [facility] Comment on above: Performed By: #### C BC #### [facility] [address] [place] [address] Dr. Grzegorz Wang Urea nitrogen/Creatinine [Mass ratio] 40.4 mg/mg Normal [facility] Comment on above: Performed By: #### C BC #### [facility] [address] [place] [address] Dr. Grzegorz Wang CBC AUTO DIFFon 10-17-2021 BASO # 0.1 103/ul Normal 0.0-0.1 [facility] Comment on above: Performed By: #### C BC #### [facility] [address] [place] [address] Dr. Grzegorz Wang Basophils/100 WBC (Bld) 0.9 % Normal 0.2-2.0 [facility] Comment on above: Performed By: #### C BC #### [facility] [address] [place] [address] Dr. Grzegorz Wang EO # 0.2 103/ul Normal 0.0-0.7 [facility] Comment on above: Performed By: #### C BC #### [facility] [address] [place] [address] Dr. Grzegorz Wang Eosinophils/100 WBC (Bld) 3.1 % Normal 0.9-7.0 [facility] Comment on above: Performed By: #### C BC #### [facility] [address] [place] [address] Dr. Grzegorz Wang Erythrocyte distribution width (RBC) [Ratio] 17.6 % Critically high 11.0-15.0 [facility] Comment on above: Performed By: #### C BC #### [facility] [address] [place] [address] Dr. Grzegorz Wang Hematocrit (Bld) [Volume fraction] 35.7 % Critically low 36.0-48.0 [facility] Comment on above: Performed By: #### C BC #### [facility] [address] [place] [address] Dr. Grzegorz Wang Hemoglobin (Bld) [Mass/Vol] 11.5 g/dL Critically low 12.0-16.0 [facility] Comment on above: Result Comment: rcvd . blood Performed By: #### C BC #### [facility] [address] [place] [address] Dr. Grzegorz Wang IG # 0.18 10e3/ul Critically high 0.00-0.03 [facility] Comment on above: Performed By: #### C BC #### [facility] [address] [place] [address] Dr. Grzegorz Wang IG % 2.6 % Critically high 0.0-0.5 [facility] Comment on above: Performed By: #### C BC #### [facility] [address] [place] [address] Dr. Grezgorz Wang LYMPH # 1.5 103/ul Normal 1.2-3.8 [facility] Comment on above: Performed By: #### C BC #### [facility] [address] [place] [address] Dr. Grzegorz Wang Lymphocytes/100 WBC (Bld) 21.4 % Normal 20.5-60.0 [facility] Comment on above: Performed By: #### C BC #### [facility] [address] [place] [address] Dr. Grzegorz Wang MANUAL DIFF REQ NO Normal [facility] Comment on above: Performed By: #### C BC #### [facility] [address] [place] [address] Dr. Grzegorz Wang MCH (RBC) [Entitic mass] 26.0 pg Critically low 26.7-34.0 [facility] Comment on above: Performed By: #### C BC #### [facility] [address] [address] [address] Grzegorz Wang MCHC (RBC) [Mass/Vol] 32.2 g/dL Normal 29.9-35.2 [facility] Comment on above: Performed By: #### C BC #### [facility] [address] [place] [address] Dr. Grzegorz Wang MCV (RBC) [Entitic vol] 80.6 fL Critically low 81.0-99. 0 [facility] Comment on above: Performed By: #### C BC #### [facility] [address] [place] [address] Dr. Grzegorz Wang MONO # 0.7 103/ul Normal 0.3-0.8 [facility] Comment on above: Performed By: #### C BC #### [facility] [address] [place] [address] Dr. Grzegorz Wang Monocytes/100 WBC (Bld) 10.8 % Normal 1.7-12.0 [facility] Comment on above: Performed By: #### C BC #### [facility] [address] [place] [address] Dr. Grzegorz Wang NEUT # 4.2 103/ul Normal 1.4-6.5 [facility] Comment on above: Performed By: #### C BC #### [facility] [address] [place] [address] Dr. Grzegorz Wang Neutrophils/100 WBC (Bld) 61.2 % Normal 43.0-75.0 [facility] Comment on above: Performed By: #### C BC #### [facility] [address] [place] [address] Dr. Grzegorz Wang Platelet mean volume (Bld) [Entitic vol] 9.9 fL Normal 9.5-13.5 [facility] Comment on above: Performed By: #### C BC #### [facility] [address] [place] [address] Dr. Grzegorz Wang PLT 228 103/ul Normal 150-450 [facility] Comment on above: Performed By: #### C BC #### [facility] [address] [address] [address] Grzegorz Wang RBC 4.43 106/ul Normal 4.20-5.40 [facility] Comment on above: Performed By: #### C BC #### [facility] [address] [place] [address] Dr. Grzegorz Wang WBC 6.9 103/ul Normal 4.0-11.0 [facility] Comment on above: Performed By: #### C BC #### [facility] [address] [place] [address] Dr. Grzegorz Wang BASO # 0.0 103/ul Normal 0.0-0.1 [facility] Comment on above: Performed By: #### C BC #### [facility] [address] [place] [address] Dr. Grzegorz Wang Basophils/100 WBC (Bld) 0.8 % Normal 0.2-2.0 [facility] Comment on above: Performed By: #### C BC #### [facility] [address] [place] [address] Dr. Grzegorz Wang EO # 0.1 103/ul Normal 0.0-0.7 [facility] Comment on above: Performed By: #### C BC #### [facility] [address] [place] [address] Dr. Grzegorz Wang Eosinophils/100 WBC (Bld) 2.4 % Normal 0.9-7.0 [facility] Comment on above: Performed By: #### C BC #### [facility] [address] [place] [address] Dr. Grzegorz Wang Erythrocyte distribution width (RBC) [Ratio] 16.8 % Critically high 11.0-15.0 [facility] Comment on above: Performed By: #### C BC #### [facility] [address] [place] [address] Dr. Grzegorz Wang Hematocrit (Bld) [Volume fraction] 23.2 % Critically low 36.0-48.0 [facility] Comment on above: Performed By: #### C BC #### [facility] [address] [address] [address] Grzegorz Wang Hemoglobin (Bld) [Mass/Vol] 7.4 g/dL Critically low 12.0-16.0 [facility] Comment on above: Performed By: #### C BC #### [facility] [address] [address] [address] Grzegorz Wang IG # 0.05 10e3/ul Critically high 0.00-0.03 [facility] Comment on above: Performed By: #### C BC #### [facility] [address] [address] [address] Grzegorz Wang IG % 1.0 % Critically high 0.0-0.5 [facility] Comment on above: Performed By: #### C BC #### [facility] [address] [place] [address] Dr. Grzegorz Wang LYMPH # 1.4 103/ul Normal 1.2-3.8 [facility] Comment on above: Performed By: #### C BC #### [facility] [address] [place] [address] Dr. Grzegorz Wang Lymphocytes/100 WBC (Bld) 27.8 % Normal 20.5-60.0 [facility] Comment on above: Performed By: #### C BC #### [facility] [address] [place] [address] Dr. Grzegorz Wang MANUAL DIFF REQ NO Normal [facility] Comment on above: Performed By: #### C BC #### [facility] [address] [place] [address] Dr. Grzegorz Wang MCH (RBC) [Entitic mass] 25.6 pg Critically low 26.7-34.0 [facility] Comment on above: Performed By: #### C BC #### [facility] [address] [place] [address] Dr. Grzegorz Wang MCHC (RBC) [Mass/Vol] 31.9 g/dL Normal 29.9-35.2 [facility] Comment on above: Performed By: #### C BC #### [facility] [address] [address] [address] Grzegorz Wang MCV (RBC) [Entitic vol] 80.3 fL Critically low 81.0-99. 0 [facility] Comment on above: Performed By: #### C BC #### [facility] [address] [address] [address] Grzegorz Wang MONO # 0.6 103/ul Normal 0.3-0.8 [facility] Comment on above: Performed By: #### C BC #### [facility] [address] [address] [address] Grzegorz Wang Monocytes/100 WBC (Bld) 11.6 % Normal 1.7-12.0 [facility] Comment on above: Performed By: #### C BC #### [facility] [address] [place] [address] Dr. Grzegorz Wang NEUT # 2.8 103/ul Normal 1.4-6.5 [facility] Comment on above: Performed By: #### C BC #### [facility] [address] [address] [address] Grzegorz Wang Neutrophils/100 WBC (Bld) 56.4 % Normal 43.0-75.0 [facility] Comment on above: Performed By: #### C BC #### [facility] [address] [address] [address] Grzegorz Wang Platelet mean volume (Bld) [Entitic vol] 10.0 fL Normal 9.5-13.5 [facility] Comment on above: Performed By: #### C BC #### [facility] [address] [address] [address] Grzegorz Wang PLT 193 103/ul Normal 150-450 [facility] Comment on above: Performed By: #### C BC #### [facility] [address] [address] [address] Grzegorz Wang RBC 2.89 106/ul Critically low 4.20-5.40 [facility] Comment on above: Performed By: #### C BC #### [facility] [address] [address] [address] Grzegorz Wang WBC 4.9 103/ul Normal 4.0-11.0 [facility] Comment on above: Performed By: #### C BC #### [facility] [address] [place] [address] Dr. Grzegorz Wang PROF CHEM 8 (BAS METB)on Anion gap [Moles/Vol] 11.4 mmol/L Normal [facility] Comment on above: Performed By: #### A MY, LIPA #### [facility] [address] [place] [address] Dr. Grzegorz Wang Calcium [Mass/Vol] 8.3 mg/dL Critically low 8.5-10.1 [facility] Comment on above: Performed By: #### A MY, LIPA #### [facility] [address] [place] [address] Dr. Grzegorz Wang Chloride [Moles/Vol] 116 mmol/L Critically high 98-107 [facility] Comment on above: Performed By: #### A MY, LIPA #### [facility] [address] [place] [address] Dr. Grzegorz Wang CO2 [Moles/Vol] 21.1 mmol/L Normal 21.0-32.0 [facility] Comment on above: Performed By: #### A MY, LIPA #### [facility] [address] [place] [address] Dr. Grzegorz Wang Creatinine [Mass/Vol] 1.07 mg/dL Critically high 0.55-1.02 [facility] Comment on above: Performed By: #### A MY, LIPA #### [facility] [address] [place] [address] Dr. Grzegorz Wang EGFR-AF BERMUDIAN >60 Normal >=60 [facility] Comment on above: Performed By: #### A MY, LIPA #### [facility] [address] [place] [address] Dr. Grzegorz Wang EGFR-NON AF BERMUDIAN 50 mL/min/1.73m2 Critically low >=60 [facility] Comment on above: Performed By: #### A MY, LIPA #### [facility] [address] [address] [address] Grzegorz Wang Glucose [Mass/Vol] 90 mg/dL Normal 74-[address] [facility] Comment on above: Performed By: #### A MY, LIPA #### [facility] [address] [place] [address] Dr. Grzegorz Wang Potassium [Moles/Vol] 3.5 mmol/L Normal 3.5-5.1 [facility] Comment on above: Performed By: #### A MY, LIPA #### [facility] [address] [place] [address] Dr. Grzegorz Wang Sodium [Moles/Vol] 145 mmol/L Normal 136-[address] [facility] Comment on above: Performed By: #### A BRAYDEN, LIPA #### [facility] [facility] [address] [place] [address] Dr. Grzegorz Wang Urea nitrogen [Mass/Vol] 59.0 mg/dL Critically high 7.0-18.0 [facility] Comment on above: Performed By: #### A BRAYDEN, LIPA #### [facility] [address] [place] [address] Dr. Grzegorz Wang Urea nitrogen/Creatinine [Mass ratio] 55.1 mg/mg Normal [facility] Comment on above: Performed By: #### A BRAYDEN, LIPA #### [facility] [address] [place] [address] Dr. Grzegorz Wang AMYLASEon 10-16-2021 Amylase [Catalytic activity/Vol] 41 U/L Normal 25-115 [facility] Comment on above: Performed By: #### A BRAYDEN, LIPA #### [facility] [address] [place] [address] Dr. Grzegorz Wang CBC AUTO DIFFon 10-16-2021 BASO # 0.1 103/ul Normal 0.0-0.1 [facility] Comment on above: Performed By: #### A BRAYDEN, LIPA #### [facility] [address] [place] [address] Dr. Grzegorz Wang Basophils/100 WBC (Bld) 0.7 % Normal 0.2-2.0 [facility] Comment on above: Performed By: #### A PHIL OWEN #### [facility] [address] [place] [address] Dr. Grzegorz Wang EO # 0.2 103/ul Normal 0.0-0.7 [facility] Comment on above: Performed By: #### A PHIL OWEN #### [facility] [address] [place] [address] Dr. Grzegorz Wang Eosinophils/100 WBC (Bld) 2.4 % Normal 0.9-7.0 The [facility] Comment on above: Performed By: #### A PHIL OWEN #### [facility] [address] [place] [address] Dr. Grzegorz Wang Erythrocyte distribution width (RBC) [Ratio] 17.1 % Critically high 11.0-15.0 [facility] Comment on above: Performed By: #### A PHIL OWEN #### [facility] [address] [place] [address] Dr. Grzegorz Wang Hematocrit (Bld) [Volume fraction] 26.0 % Critically low 36.0-48.0 [facility] Comment on above: Performed By: #### A PHIL OWEN #### [facility] [address] [place] [address] Dr. Grzegorz Wang Hemoglobin (Bld) [Mass/Vol] 8.4 g/dL Critically low 12.0-16.0 The [facility] Comment on above: Performed By: #### A BRAYDEN LIPA #### [facility] [address] [place] [address] Dr. Grzegorz Wang IG # 0.03 10e3/ul Normal 0.00-0.03 The [facility] Comment on above: Performed By: #### A PHIL OWEN #### [facility] [address] [place] [address] Dr. Grzegorz Wang IG % 0.4 % Normal 0.0-0.5 [facility] Comment on above: Performed By: #### A MY, LIPA #### [facility] [address] [address] [address] Grzegorz Wang LYMPH # 1.9 103/ul Normal 1.2-3.8 [facility] Comment on above: Performed By: #### A MY, LIPA #### [facility] [address] [address] [address] Grzegorz Wang Lymphocytes/100 WBC (Bld) 27.3 % Normal 20.5-60.0 [facility] Comment on above: Performed By: #### A MY, LIPA #### [facility] [address] [address] [address] Grzegorz Wang MANUAL DIFF REQ NO Normal [facility] Comment on above: Performed By: #### A BRAYDEN, LIPA #### [facility] [address] [place] [address] Dr. Grzegorz Wang MCH (RBC) [Entitic mass] 26.0 pg Critically low 26.7-34.0 [facility] Comment on above: Performed By: #### A BRAYDEN, LIPA #### [facility] [address] [place] [address] Dr. Grzegorz Wang MCHC (RBC) [Mass/Vol] 32.3 g/dL Normal 29.9-35.2 [facility] Comment on above: Performed By: #### A BRAYDEN, LIPA #### [facility] [address] [place] [address] Dr. Grzegorz Wang MCV (RBC) [Entitic vol] 80.5 fL Critically low 81.0-99. 0 [facility] Comment on above: Performed By: #### A MY, LIPA #### [facility] [address] [place] [address] Dr. Grzegorz Wang MONO # 0.7 103/ul Normal 0.3-0.8 [facility] Comment on above: Performed By: #### A BRAYDEN, LIPA #### [facility] [address] [place] [address] Dr. Grzegorz Wang Monocytes/100 WBC (Bld) 10.5 % Normal 1.7-12.0 [facility] Comment on above: Performed By: #### A MY, LIPA #### [facility] [address] [address] [address] Grzegorz Wang NEUT # 4.1 103/ul Normal 1.4-6.5 [facility] Comment on above: Performed By: #### A MY, LIPA #### [facility] [address] [place] [address] Dr. Grzegorz Wang Neutrophils/100 WBC (Bld) 58.7 % Normal 43.0-75.0 [facility] Comment on above: Performed By: #### A MY, LIPA #### [facility] [address] [place] [address] Dr. Grzegorz Wang Platelet mean volume (Bld) [Entitic vol] 10.4 fL Normal 9.5-13.5 [facility] Comment on above: Performed By: #### A BRAYDEN LIPA #### [facility] [address] [place] [address] Dr. Grzegorz Wang PLT 217 103/ul Normal 150-450 [facility] Comment on above: Performed By: #### A BRAYDEN LIPA #### [facility] [address] [place] [address] Dr. Grzegorz Wang RBC 3.23 106/ul Critically low 4.20-5.40 [facility] Comment on above: Performed By: #### A BRAYDEN, LIPA #### [facility] [address] [place] [address] Dr. Grzegorz Wang WBC 7.1 103/ul Normal 4.0-11.0 [facility] Comment on above: Performed By: #### A MY, LIPA #### [facility] [address] [place] [address] Dr. Grzegorz Wang BASO # 0.0 103/ul Normal 0.0-0.1 [facility] Comment on above: Performed By: #### C BC #### [facility] [address] [place] [address] Dr. Grzegorz Wang Basophils/100 WBC (Bld) 0.5 % Normal 0.2-2.0 [facility] Comment on above: Performed By: #### C BC #### [facility] [address] [address] [address] Grzegorz Wang EO # 0.1 103/ul Normal 0.0-0.7 [facility] Comment on above: Performed By: #### C BC #### [facility] [address] [address] [address] Grzegorz Wang Eosinophils/100 WBC (Bld) 0.8 % Critically low 0.9-7.0 [facility] Comment on above: Performed By: #### C BC #### [facility] [address] [place] [address] Dr. Grzegorz Wang Erythrocyte distribution width (RBC) [Ratio] 16.8 % Critically high 11.0-15.0 [facility] Comment on above: Performed By: #### C BC #### [facility] [address] [place] [address] Dr. Grzegorz Wang Hematocrit (Bld) [Volume fraction] 19.5 % Critically low 36.0-48.0 [facility] Comment on above: Performed By: #### C BC #### [facility] [address] [place] [address] Dr. Grzegorz Wang Hemoglobin (Bld) [Mass/Vol] 6.0 g/dL Critically low 12.0-16.0 [facility] Comment on above: Result Comment: repe ated Performed By: #### C BC #### [facility] [address] [place] [address] Dr. Grzegorz Wang IG # 0.05 10e3/ul Critically high 0.00-0.03 [facility] Comment on above: Performed By: #### C BC #### [facility] [address] [place] [address] Dr. Grzegorz Wang IG % 0.6 % Critically high 0.0-0.5 [facility] Comment on above: Performed By: #### C BC #### [facility] [address] [place] [address] Dr. Grzegorz Wang LYMPH # 1.8 103/ul Normal 1.2-3.8 [facility] Comment on above: Performed By: #### C BC #### [facility] [address] [place] [address] Dr. Grzegorz Wang Lymphocytes/100 WBC (Bld) 21.6 % Normal 20.5-60.0 [facility] Comment on above: Performed By: #### C BC #### [facility] [address] [place] [address] Dr. Grzegorz Wang MANUAL DIFF REQ NO Normal [facility] Comment on above: Performed By: #### C BC #### [facility] [address] [place] [address] Dr. Grzegorz Wang MCH (RBC) [Entitic mass] 23.4 pg Critically low 26.7-34.0 [facility] Comment on above: Performed By: #### C BC #### [facility] [address] [place] [address] Dr. Grzegorz Wang MCHC (RBC) [Mass/Vol] 30.6 g/dL Normal 29.9-35.2 [facility] Comment on above: Performed By: #### C BC #### [facility] [address] [place] [address] Dr. Grzegorz Wang MCV (RBC) [Entitic vol] 76.6 fL Critically low 81.0-99. 0 [facility] Comment on above: Performed By: #### C BC #### [facility] [address] [place] [address] Dr. Grzegorz Wang MONO # 0.6 103/ul Normal 0.3-0.8 [facility] Comment on above: Performed By: #### C BC #### [facility] [address] [place] [address] Dr. Grzegorz Wang Monocytes/100 WBC (Bld) 7.3 % Normal 1.7-12.0 [facility] Comment on above: Performed By: #### C BC #### [facility] [address] [place] [address] Dr. Grzegorz Wang NEUT # 5.9 103/ul Normal 1.4-6.5 [facility] Comment on above: Performed By: #### C BC #### [facility] [address] [address] [address] Grzegorz Wang Neutrophils/100 WBC (Bld) 69.2 % Normal 43.0-75.0 [facility] Comment on above: Performed By: #### C BC #### [facility] [address] [address] [address] Grzegorz Wang Platelet mean volume (Bld) [Entitic vol] 10.5 fL Normal 9.5-13.5 [facility] Comment on above: Performed By: #### C BC #### [facility] [address] [address] [address] Grzegorz Wang PLT 288 103/ul Normal 150-450 [facility] Comment on above: Performed By: #### C BC #### [facility] [address] [place] [address] Dr. Grzegorz Wang RBC 2.52 106/ul Critically low 4.20-5.40 [facility] Comment on above: Performed By: #### C BC #### [facility] [address] [address] [address] Grzegorz Wang WBC 8.5 103/ul Normal 4.0-11.0 [facility] Comment on above: Performed By: #### C BC #### [facility] [address] [address] [address] ABD/PELVIS WO CONon [...] LYNN OLSON Date: 2021-10-16 13:53 Normal [facility]on SARS-CoV-2 (COVID-19) RNA SIOBHAN+probe Ql (Unsp spec) Not detected Normal NOT DETECTED The [facility] Comment on above: Result Comment: [...] for this test is supported by the [place] of [employer] and Human Service's declaration that [...] used). Performed By: #### E RUR #### [facility] [address] [place] [address] Dr. Grzegorz Wang ER URINE PROFILEon 2 Bilirubin Ql (U) Negative Normal NEGATIVE The [facility] Comment on above: Performed By: #### A BRAYDEN LIPA #### [facility] [address] [address] [address] Grzegorz Wang Clarity (U) CLEAR Normal CLEAR The [facility] Comment on above: Performed By: #### A MY, LIPA #### [facility] [address] [place] [address] Dr. Grzegorz Wang Color (U) LT. YELLOW Normal YELLOW The [facility] Comment on above: Performed By: #### A BRAYDEN, LIPA #### [facility] [address] [address] [address] Grzegorz Carrasco micrscopic examination will be performed if indicated. Normal The [facility] Comment on above: Performed By: #### A MY, LIPA #### [facility] [address] [address] [address] Grzegorz Wang Glucose Ql (U) Negative Normal NEGATIVE The [facility] Comment on above: Performed By: #### A MY, LIPA #### [facility] [address] [place] [address] Dr. Grzegorz Wang Hemoglobin Ql (U) SMALL Abnormal NEGATIVE The [facility] Comment on above: Performed By: #### A MY, LIPA #### [facility] [address] [place] [address] Dr. Grzegorz Wang Ketones Ql (U) Negative Normal NEGATIVE The [facility] Comment on above: Performed By: #### A MY, LIPA #### [facility] [address] [place] [address] Dr. Grzegorz Wang LEUKOCYTES TRACE Abnormal NEGATIVE The [facility] Comment on above: Performed By: #### A MY, LIPA #### [facility] [address] [place] [address] Dr. Grzegorz Wang Nitrite Ql (U) Negative Normal NEGATIVE The [facility] Comment on above: Performed By: #### A MY, LIPA #### [facility] [address] [place] [address] Dr. Grzegorz Wang pH (U) 5.5 [pH] Normal 5-9 [facility] Comment on above: Performed By: #### A MY, LIPA #### [facility] [address] [place] [address] Dr. Grzegorz Wang SPEC GRAVITY 1.005 Normal 1.005-<=1.0 25 The [facility] Comment on above: Performed By: #### A MY, LIPA #### [facility] [address] [place] [address] Dr. Grzegorz Wang UA PROTEIN Negative Normal NEGATIVE/ TRACE The [facility] Comment on above: Performed By: #### A BRAYDEN, LIPA #### [facility] [address] [place] [address] Dr. Grzegorz Wang UR MICRO IND INDICATED Normal [facility] Comment on above: Performed By: #### A MY, LIPA #### [facility] [address] [place] [address] Dr. Grzegorz Wang Urobilinogen Qn (U) 0.2 {Lidya'U}/dL Normal 0.2 - 1. 0 [facility] Comment on above: Performed By: #### A MY, LIPA #### [facility] [address] [place] [address] Dr. Grzegorz Wang LIPASEon 10-16-2021 Lipase [Catalytic activity/Vol] 77.0 U/L Normal 73.0-393.0 [facility] Comment on above: Performed By: #### A BRAYDEN LIPA #### [facility] [address] [place] [address] Dr. Grzegorz Wang OCC BLD IMMUNO SCREENon OCCULT BLOOD Positive Abnormal NEGATIVE [facility] Comment on above: Performed By: #### A BRAYDEN LIPA #### [facility] [address] [place] [address] Dr. Grzegorz Wagn PROF 14(COMP METB)on 022 Albumin [Mass/Vol] 3.4 g/dL Normal 3.4-5.[address] [facility] Comment on above: Performed By: #### C BC #### [facility] [address] [place] [address] Dr. Grzegorz Wang Albumin/Globulin [Mass ratio] 1.2 {ratio} Normal [facility] Comment on above: Performed By: #### C BC #### [facility] [address] [place] [address] Dr. Grzegorz Wang ALP [Catalytic activity/Vol] 77 U/L Normal 46-116 [facility] Comment on above: Performed By: #### C BC #### [facility] [address] [place] [address] Dr. Grzegorz Wang ALT [Catalytic activity/Vol] 18 U/L Normal 14-59 [facility] Comment on above: Performed By: #### C BC #### [facility] [address] [address] [address] Grzegorz Wang Anion gap [Moles/Vol] 15.3 mmol/L Normal Th [facility] Comment on above: Performed By: #### C BC #### [facility] [address] [address] [address] Grzegorz Wang AST [Catalytic activity/Vol] 17 U/L Normal 15-37 [facility] Comment on above: Performed By: #### C BC #### [facility] [address] [address] [address] Grzegorz Wang Bilirubin [Mass/Vol] 0.4 mg/dL Normal 0.2-1.0 [facility] Comment on above: Performed By: #### C BC #### [facility] [address] [address] [address] Grzegorz Wang Calcium [Mass/Vol] 8.5 mg/dL Normal 8.5-10.[address] [facility] Comment on above: Performed By: #### C BC #### [facility] [address] [address] [address] Grzegorz Wang Chloride [Moles/Vol] 104 mmol/L Normal 98-107 [facility] Comment on above: Performed By: #### C BC #### [facility] [address] [address] [address] Grzegorz Wang CO2 [Moles/Vol] 21.2 mmol/L Normal 21.0-32.0 [facility] Comment on above: Performed By: #### C BC #### [facility] [address] [address] [address] Grzgeorz Wang Creatinine [Mass/Vol] 1.68 mg/dL Critically high 0.55-1.02 [facility] Comment on above: Performed By: #### C BC #### [facility] [address] [address] [address] Grzegorz Wang EGFR-AF BERMUDIAN 36 mL/min/1.73m2 Critically low >=60 [facility] Comment on above: Performed By: #### C BC #### [facility] [address] [address] [address] Grzegorz Wang EGFR-NON AF BERMUDIAN 30 mL/min/1.73m2 Critically low >=60 [facility] Comment on above: Performed By: #### C BC #### [facility] [address] [address] [address] Grzegorz Wang Globulin (S) [Mass/Vol] 2.8 g/dL Normal T [facility] Comment on above: Performed By: #### C BC #### [facility] [address] [address] [address] Grzegorz Wang Glucose [Mass/Vol] 101 mg/dL Normal 74-[address] [facility] Comment on above: Performed By: #### C BC #### [facility] [address] [address] [address] Grzegorz Wang Potassium [Moles/Vol] 3.5 mmol/L Normal 3.5-5.1 [facility] Comment on above: Performed By: #### C BC #### [facility] [address] [address] [address] Grzegorz Wang Protein [Mass/Vol] 6.2 g/dL Critically low 6.4-8.2 Th [facility] Comment on above: Performed By: #### C BC #### [facility] [address] [address] [address] Grzegorz Wang Sodium [Moles/Vol] 137 mmol/L Normal 136-[address] [facility] Comment on above: Performed By: #### C BC #### [facility] [address] [address] [address] Grzegorz Wang Urea nitrogen [Mass/Vol] 83.0 mg/dL Critically high 7.0-18.0 [facility] Comment on above: Result Comment: repe ated Performed By: #### C BC #### [facility] [address] [address] [address] Grzegorz Wang Urea nitrogen/Creatinine [Mass ratio] 49.4 mg/mg Normal [facility] Comment on above: Performed By: #### C BC #### [facility] [address] [place] [address] Dr. Grzegorz Wang PROTIMEon 10-16-2021 INR Coag (PPP) [Relative time] 0.99 {INR} Normal The [facility] Comment on above: Performed By: #### P T, PTT #### [facility] [address] [place] [address] Dr. Grzegorz Wang INR GUIDELINES SEE BELOW Normal The [facility] Comment on above: Result Comment: DENTON RED INR: 2.0 - 3.0 CONDITIONS NOT LISTED BELOW 2.5 - 3.5 FOR PROSTHETIC HEART VALVE REPLACEMENT 2.5 - 3.5 RECURRENT THROMBOSIS Performed By: #### P T, PTT #### [facility] [address] [place] [address] Dr. Grzegorz Wang PT Coag (PPP) [Time] 10.7 s Normal 9.0-11.6 [facility] Comment on above: Performed By: #### P T, PTT #### [facility] [address] [place] [address] Dr. Grzegorz Wang PTTon 10-16-2021 aPTT Coag (Bld) [Time] 23.5 s Normal 22.3-36.2 [facility] Comment on above: Performed By: #### P T, PTT #### [facility] [address] [place] [address] Dr. Grzegorz Wang TYPE AND SCREENon 10-16-2021 TYPE AND SCREEN Negative Normal [facility] Comment on above: Performed By: #### C BC #### [facility] [address] [place] [address] Dr. Grzegorz Wang URINE MICROSCOPIC ONLYon BACTERIA NONE SEEN Normal NONE SEEN The [facility] Comment on above: Performed By: #### A MY LIPA #### [facility] [address] [place] [address] Dr. Grzegorz Wang Bacteria identified Cx Nom (U) NOT INDICATED Normal The [facility] Comment on above: Performed By: #### A MY LIPA #### [facility] [address] [place] [address] Dr. Grzegorz Wang CAST NONE SEEN Normal NONE SEEN [facility] Comment on above: Performed By: #### A MY, LIPA #### [facility] [address] [place] [address] Dr. Grzegorz Wang Crystals LM Nom (Urine sed) NONE SEEN Normal NONE SEEN [facility] Comment on above: Performed By: #### A MY, LIPA #### [facility] [address] [place] [address] Dr. Grzegorz Wang Epithelial cells LM Ql (Urine sed) RARE Normal NONE SEEN /RARE The [facility] Comment on above: Performed By: #### A MY, LIPA #### [facility] [address] [place] [address] Dr. Grzegorz Wang MUCOUS NONE SEEN Normal NONE SEEN The [facility] Comment on above: Performed By: #### A BRAYDEN, LIPA #### [facility] [address] [place] [address] Dr. Grzegorz Wang RBC NONE SEEN Abnormal 0-2 [facility] Comment on above: Performed By: #### A BRAYDEN, LIPA #### [facility] [address] [place] [address] Dr. Grzegorz Wang WBC NONE SEEN Normal NONE SEEN The [facility] Comment on above: Performed By: #### A BRAYDEN, LIPA #### [facility] [address] [place] [address] Dr. Grzegorz Wang BNPon 09-02-2021 Natriuretic peptide B (Bld) [Mass/Vol] 140.0 pg/mL Normal <=900.0 [facility] Comment on above: Performed By: #### C BC #### [facility] [address] [place] [address] Dr. Grzegorz Wang CARDIAC BAMBI ADMITon 022 CK [Catalytic activity/Vol] 121 U/L Normal 26-192 [facility] Comment on above: Performed By: #### C BC #### [facility] [facility] [address] [place] [address] Dr. Grzegorz Wang CK.MB [Mass/Vol] 2.44 ng/mL Normal <=3.60 [facility] Comment on above: Performed By: #### C BC #### [facility] [address] [place] [address] Dr. Grzegorz Wang HSTROP 9.8 pg/mL Normal 4.0-51.3 [facility] Comment on above: Result Comment: CUT- OFF POINTS HAVE BEEN ESTABLISHED BASED ON THE FOURTH UNIVERSAL DEFINITIONS OF MYOCARDIAL INFARCTION. THE UPPER REFERENCE LIMIT (URL) OF TROPONIN, DEFINED THE 99TH PERCENTILE OF cTnI DISTRIBUTION IN A REFERENCE POPULATION, HAS BEEN CONFIRMED THE DECISION THRESHOLD FOR [place] DIAGNOSIS. Performed By: #### C BC #### [facility] [address] [address] [address] Grzegorz Wang MITZI 109 ng/mL Critically high 9-82 [facility] Comment on above: Performed By: #### C BC #### [facility] [address] [place] [address] Dr. Grzegorz Wang CBC AUTO DIFFon 09-02-2021 BASO # 0.0 103/ul Normal 0.0-0.1 [facility] Comment on above: Performed By: #### C BC #### [facility] [address] [place] [address] Dr. Grzegorz Wang Basophils/100 WBC (Bld) 0.5 % Normal 0.2-2.0 [facility] Comment on above: Performed By: #### C BC #### [facility] [address] [place] [address] Dr. Grzegorz Wang EO # 0.1 103/ul Normal 0.0-0.7 [facility] Comment on above: Performed By: #### C BC #### [facility] [address] [place] [address] Dr. Grzegorz Wang Eosinophils/100 WBC (Bld) 3.1 % Normal 0.9-7.0 [facility] Comment on above: Performed By: #### C BC #### [facility] [address] [place] [address] Dr. Grzegorz Wang Erythrocyte distribution width (RBC) [Ratio] 16.0 % Critically high 11.0-15.0 [facility] Comment on above: Performed By: #### C BC #### [facility] [address] [place] [address] Dr. Grzegorz Wang Hematocrit (Bld) [Volume fraction] 32.0 % Critically low 36.0-48.0 [facility] Comment on above: Performed By: #### C BC #### [facility] [address] [place] [address] Dr. Grzegorz Wang Hemoglobin (Bld) [Mass/Vol] 10.1 g/dL Critically low 12.0-16.0 [facility] Comment on above: Performed By: #### C BC #### [facility] [address] [place] [address] Dr. Grzegorz Wang IG # 0.01 10e3/ul Normal 0.00-0.03 [facility] Comment on above: Performed By: #### C BC #### [facility] [address] [place] [address] Dr. Grzegorz Wang IG % 0.3 % Normal 0.0-0.5 [facility] Comment on above: Performed By: #### C BC #### [facility] [address] [place] [address] Dr. Grzegorz Wang LYMPH # 1.7 103/ul Normal 1.2-3.8 [facility] Comment on above: Performed By: #### C BC #### [facility] [address] [place] [address] Dr. Grzegorz Wang Lymphocytes/100 WBC (Bld) 43.1 % Normal 20.5-60.0 [facility] Comment on above: Performed By: #### C BC #### [facility] [address] [place] [address] Dr. Grzgeorz Wang MANUAL DIFF REQ NO Normal [facility] Comment on above: Performed By: #### C BC #### [facility] [address] [place] [address] Dr. Grzegorz Wang MCH (RBC) [Entitic mass] 23.9 pg Critically low 26.7-34.0 [facility] Comment on above: Performed By: #### C BC #### [facility] [address] [address] [address] Grzegorz Wang MCHC (RBC) [Mass/Vol] 31.6 g/dL Normal 29.9-35.2 [facility] Comment on above: Performed By: #### C BC #### [facility] [address] [address] [address] Grzegorz Wang MCV (RBC) [Entitic vol] 75.8 fL Critically low 81.0-99. 0 [facility] Comment on above: Performed By: #### C BC #### [facility] [address] [place] [address] Dr. Grzegorz Wang MONO # 0.4 103/ul Normal 0.3-0.8 [facility] Comment on above: Performed By: #### C BC #### [facility] [address] [place] [address] Dr. Grzegorz Wang Monocytes/100 WBC (Bld) 9.7 % Normal 1.7-12.0 [facility] Comment on above: Performed By: #### C BC #### [facility] [address] [place] [address] Dr. Grzegorz Wang NEUT # 1.7 103/ul Normal 1.4-6.5 [facility] Comment on above: Performed By: #### C BC #### [facility] [address] [place] [address] Dr. Grzegorz aWng Neutrophils/100 WBC (Bld) 43.3 % Normal 43.0-75.0 [facility] Comment on above: Performed By: #### C BC #### [facility] [address] [place] [address] Dr. Grzegorz Wang Platelet mean volume (Bld) [Entitic vol] 10.1 fL Normal 9.5-13.5 [facility] Comment on above: Performed By: #### C BC #### [facility] [address] [place] [address] Dr. Grzegorz Wang PLT 179 103/ul Normal 150-450 [facility] Comment on above: Performed By: #### C BC #### [facility] [address] [place], [place] [address] Dr. Grzegorz Wang RBC 4.22 106/ul Normal 4.20-5.40 [facility] Comment on above: Performed By: #### C BC #### [facility] [address] [place], [place] [address] Dr. Grzegorz Wang WBC 3.8 103/ul Critically low 4.0-11.0 [facility] Comment on above: Performed By: #### C BC #### [facility] [address] [place], [place] [address] CSPINE WO CONon [...] JEAN-PIERRE GIRALDO Date: 2021-09-02 19:33 Normal [facility] CT STROKE HEAD WOon 09-03-19 [...] JEAN-PIERRE GIRALDO Date: 2021-09-02 19:29 Normal [facility]-12 SARS-CoV-2 (COVID-19) RNA SIOBHAN+probe Ql (Unsp spec) Detected Critically abnormal NOT DETECTED [facility] Comment on above: Result Comment: This test is not yet approved or cleared by the [place] FDA. When there are no FDA-approved or cleared tests available, and other criteria are met, FDA can make tests available under an emergency access mechanism called an Emergency Use Authorization (EUA). The EUA for this test is supported by the [place] of Health and Human Service's declaration that [...] used). Performed By: #### C BC #### [facility] [address] [place] [address] Dr. Grzegorz Wang DRUG SCREEN RAPID (URINE)on 09-02-2021 AMP Negative Normal NEGATIVE [facility] Comment on above: Performed By: #### E RUR #### [facility] [address] [address] [address] Grzegorz Wang BAR Negative Normal NEGATIVE [facility] Comment on above: Performed By: #### E RUR #### [facility] [address] [address] [address] Grzegorz Wang BUP Negative Normal NEGATIVE [facility] Comment on above: Performed By: #### E RUR #### [facility] [address] [address] [address] Grzegorz Wang BZO Negative Normal NEGATIVE [facility] Comment on above: Performed By: #### E RUR #### [facility] [address] [place] [address] Dr. Grzegorz Wang MITZY Negative Normal NEGATIVE [facility] Comment on above: Performed By: #### E RUR #### [facility] [address] [place] [address] Dr. Grzegorz Wang CUT-OFFS SEE BELOW Normal [facility] Comment on above: Result Comment: AMP (Amphetamine): 500ng/mL, BAR (Barbituates): 200 ng/mL, BZO (Benzodiazepines): 150 ng/mL, BUP (Buprenorphine): 10 ng/mL, MITZY (Cocaine): 150 ng/mL, mAMP (Methamphetamine): 500 ng/mL, MTD (Methadone): 200 ng/mL, OPI (Opiates): 100 ng/mL, OXY (Oxycodone): 100 ng/mL, PCP (Phencyclidine): 25 ng/mL, PPX (Propoxyphene): 300 ng/mL, THC (Cannabinoids): 50 ng/mL, TCA (Trycyclic Antidepressants): 300 ng/mL Performed By: #### E RUR #### [facility] [address] [place] [address] Dr. Grzegorz Wang DRUG CUT HEADER DRUG CLASS TEST SYSTEM CUT-OFF CONCENTRATIONS ARE FOLLOWS: Normal [facility] Comment on above: Performed By: #### E RUR #### [facility] [address] [place] [address] Dr. Grzegorz Wang mAMP Negative Normal NEGATIVE [facility] Comment on above: Performed By: #### E RUR #### [facility] [address] [place] [address] Dr. Grzegorz Wang MTD Negative Normal NEGATIVE [facility] Comment on above: Performed By: #### E RUR #### [facility] [address] [place] [address] Dr. Grzegorz Wang OPI Negative Normal NEGATIVE [facility] Comment on above: Performed By: #### E RUR #### [facility] [address] [place] [address] Dr. Grzegorz Wang OXY Negative Normal NEGATIVE [facility] Comment on above: Performed By: #### E RUR #### [facility] [address] [place] [address] Dr. Grzegorz Wang PCP Negative Normal NEGATIVE [facility] Comment on above: Performed By: #### E RUR #### [facility] [address] [place] [address] Dr. Grzegorz Wang PPX Negative Normal NEGATIVE [facility] Comment on above: Performed By: #### E RUR #### [facility] [address] [place] [address] Dr. Grzegorz Wang TCA Positive Abnormal NEGATIVE [facility] Comment on above: Performed By: #### E RUR #### [facility] [address] [place] [address] Dr. Grzegorz Wang THC Negative Normal NEGATIVE [facility] Comment on above: Performed By: #### E RUR #### [facility] [address] [place] [address] Dr. Grzegorz Wang LACTATE/LACTIC ACIDon 2021 Lactate [Moles/Vol] 0.7 mmol/L Normal 0.4-1.9 [facility] Comment on above: Performed By: #### E RUR #### [facility] [address] [place] [address] Dr. Grzegorz Wang PROF 14(COMP METB)on 022 Albumin [Mass/Vol] 3.1 g/dL Critically low 3.4-5.0 [facility] Comment on above: Performed By: #### C BC #### [facility] [address] [place] [address] Dr. Grzegorz Wang Albumin/Globulin [Mass ratio] 1.0 {ratio} Normal [facility] Comment on above: Performed By: #### C BC #### [facility] [address] [place] [address] Dr. Grzegorz Wang ALP [Catalytic activity/Vol] 81 U/L Normal 46-116 [facility] Comment on above: Performed By: #### C BC #### [facility] [address] [place] [address] Dr. Grzegorz Wang ALT [Catalytic activity/Vol] 21 U/L Normal 14-59 [facility] Comment on above: Performed By: #### C BC #### [facility] [address] [address] [address] Grzegorz Wang Anion gap [Moles/Vol] 11.9 mmol/L Normal [facility] Comment on above: Performed By: #### C BC #### [facility] [address] [address] [address] Grzegorz Wang AST [Catalytic activity/Vol] 21 U/L Normal 15-37 [facility] Comment on above: Performed By: #### C BC #### [facility] [address] [address] [address] Grzegorz Wang Bilirubin [Mass/Vol] 0.5 mg/dL Normal 0.2-1.0 [facility] Comment on above: Performed By: #### C BC #### [facility] [address] [address] [address] Grzegorz Wang Calcium [Mass/Vol] 8.3 mg/dL Critically low 8.5-10.1 [facility] Comment on above: Performed By: #### C BC #### [facility] [address] [address] [address] Grzegorz Wang Chloride [Moles/Vol] 100 mmol/L Normal 98-107 [facility] Comment on above: Performed By: #### C BC #### [facility] [address] [address] [address] Grzegorz Wang CO2 [Moles/Vol] 25.6 mmol/L Normal 21.0-32.0 [facility] Comment on above: Performed By: #### C BC #### [facility] [address] [address] [address] Grzegorz Wang Creatinine [Mass/Vol] 1.39 mg/dL Critically high 0.55-1.02 [facility] Comment on above: Performed By: #### C BC #### [facility] [address] [address] [address] Grzegorz Wang EGFR-AF BERMUDIAN 45 mL/min/1.73m2 Critically low >=60 [facility] Comment on above: Performed By: #### C BC #### [facility] [address] [address] [address] Grzegorz Wang EGFR-NON AF BERMUDIAN 37 mL/min/1.73m2 Critically low >=60 [facility] Comment on above: Performed By: #### C BC #### [facility] [address] [address] [address] Grzegorz Wang Globulin (S) [Mass/Vol] 3.1 g/dL Normal [facility] Comment on above: Performed By: #### C BC #### [facility] [address] [address] [address] Grzegorz Wang Glucose [Mass/Vol] 96 mg/dL Normal 74-[address] [facility] Comment on above: Performed By: #### C BC #### [facility] [address] [address] [address] Grzegorz Wang Potassium [Moles/Vol] 3.5 mmol/L Normal 3.5-5.1 [facility] Comment on above: Performed By: #### C BC #### [facility] [address] [address] [address] Grzegorz Wang Protein [Mass/Vol] 6.2 g/dL Critically low 6.4-8.2 [facility] Comment on above: Performed By: #### C BC #### [facility] [address] [address] [address] Grzegorz Wang Sodium [Moles/Vol] 134 mmol/L Critically low 136-145 [facility] Comment on above: Performed By: #### C BC #### [facility] [address] [address] [address] Grzegorz Wang Urea nitrogen [Mass/Vol] 33.0 mg/dL Critically high 7.0-18.0 [facility] Comment on above: Performed By: #### C BC #### [facility] [address] [address] [address] Grzegorz Wang Urea nitrogen/Creatinine [Mass ratio] 23.7 mg/mg Normal [facility] Comment on above: Performed By: #### C BC #### [facility] [address] [address] [address] Grzegorz Wang PROTIMEon 09-02-2021 INR Coag (PPP) [Relative time] {INR} Normal [facility] Comment on above: Performed By: #### A PHIL OWEN #### [facility] [address] [place] [address] Dr. Grzegorz Wang INR GUIDELINES SEE BELOW Normal [facility] Comment on above: Result Comment: DENTON RED INR: 2.0 - 3.0 CONDITIONS NOT LISTED BELOW 2.5 - 3.5 FOR PROSTHETIC HEART VALVE REPLACEMENT 2.5 - 3.5 RECURRENT THROMBOSIS Performed By: #### A PHIL OWEN #### [facility] [address] [place] [address] Dr. Grzegorz Wang PT Coag (PPP) [Time] 10.0 s Normal 9.0-11.6 [facility] Comment on above: Performed By: #### A PHIL OWEN #### [facility] [address] [place] [address] Dr. Grzegorz Wang PTTon 09-02-2021 aPTT Coag (Bld) [Time] 32.1 s Normal 22.3-36.2 [facility] Comment on above: Performed By: #### A PHIL OWEN #### [facility] [address] [place] [address] Dr. Grzegorz Wang XR CHEST 1 Von [...] by: NATACHA CERNA Date: 2021-09-02 19:18 Normal [facility] XR hand RT min 3V*on 022 XR hand RT min 3V* [facility] [employer] Other XR hand RT min 3V* [facility] Other XR hand RT min 3V* 1[facility] Other XR hand RT min 3V* JAIRO Manjarrez [address] [facility] Other XR hand RT min 3V* XRay Report [facility] Other XR hand RT min 3V* Signed [facility] Other XR hand RT min 3V* Patient: Ozzie Gifford MR#: [id number] [facility] Other XR hand RT min 3V* [id number] [facility] Other XR hand RT min 3V* : 1950 Acct:[id number] [facility] Other XR hand RT min 3V* Age/Sex: 71 / F ADM Date: 08/02/21 [facility] Other XR hand RT min 3V* Loc: [facility] Room: Type : [facility] Other XR hand RT min 3V* Attending Dr: Neeraj Arrington MD [facility] Other XR hand RT min 3V* Copies to: Susie Arrington MD [facility] Other XR hand RT min 3V* Ordering Provider: Susie Arrington MD [facility] Other XR hand RT min 3V* Date of Service: 08/02/21 [facility] Other XR hand RT min 3V* XR/XR hand RT min 3V*: Closed nondisplaced fracture of proximal phalanx [employer] Other XR hand RT min 3V* of right mi [employer] Other XR hand RT min 3V* 4 viewsRIGHT hand plain film [facility] Other XR hand RT min 3V* COMPARISON:07/12/21 [facility] Other XR hand RT min 3V* HISTORY:Status post RIGHT long finger proximal phalanx fracture [facility] Other XR hand RT min 3V* No bony alignment stable. No interval healing. Extensive degeneration. [facility] Other XR hand RT min 3V* XR/XR hand RT min 3V* [facility] Other XR hand RT min 3V* IMPRESSION:Stable findings [facility] Other XR hand RT min 3V* Impression dictated by: Husam Martinez M.D.08/02/2021 12:13 PM [facility] Other XR hand RT min 3V* Dictation Location: [place] [address] [facility] Other XR hand RT min 3V* Transcribed By: PWS 08/02/21 1213 [facility] Other XR hand RT min 3V* Dictated By: Husam Martinez DO 08/02/21 [facility]0 [facility] Other XR hand RT min 3V* Signed By: [facility] Other XR hand RT min 3V* 08/02/[address] [place] [address] [employer] Other BNPon 07-29-2021 Natriuretic peptide B (Bld) [Mass/Vol] 192.0 pg/mL Normal <=900.0 [facility] Comment on above: Performed By: #### E RUR #### [facility] [address] [place] [address] Dr. Grzegorz Wang CARDIAC BAMBI ADMITon 022 CK [Catalytic activity/Vol] 82 U/L Normal 26-192 [facility] Comment on above: Performed By: #### E RUR #### [facility] [address] [place] [address] Dr. Grzegorz Wang CK.MB [Mass/Vol] 2.40 ng/mL Normal <=3.60 [facility] Comment on above: Performed By: #### E RUR #### [facility] [address] [place] [address] Dr. Grzegorz Wang HSTROP 4.7 pg/mL Normal 4.0-51.3 [facility] Comment on above: Result Comment: CUT- OFF POINTS HAVE BEEN ESTABLISHED BASED ON THE FOURTH UNIVERSAL DEFINITIONS OF MYOCARDIAL INFARCTION. THE UPPER REFERENCE LIMIT (URL) OF TROPONIN, DEFINED THE 99TH PERCENTILE OF cTnI DISTRIBUTION IN A REFERENCE POPULATION, HAS BEEN CONFIRMED THE DECISION THRESHOLD FOR [place] DIAGNOSIS. Performed By: #### E RUR #### [facility] [address] [place] [address] Dr. Grzegorz Wang MITZI 70 ng/mL Normal 9-82 [facility] Comment on above: Performed By: #### E RUR #### [facility] [address] [place] [address] Dr. Grzegorz Wang CBC AUTO DIFFon 07-29-2021 BASO # 0.0 103/ul Normal 0.0-0.1 [facility] Comment on above: Performed By: #### E RUR #### [facility] [address] [place] [address] Dr. Grzegorz Wang Basophils/100 WBC (Bld) 0.7 % Normal 0.2-2.0 [facility] Comment on above: Performed By: #### E RUR #### [facility] [address] [place] [address] Dr. Grzegorz Wang EO # 0.2 103/ul Normal 0.0-0.7 [facility] Comment on above: Performed By: #### E RUR #### [facility] [address] [place] [address] Dr. Grzegorz Wang Eosinophils/100 WBC (Bld) 4.1 % Normal 0.9-7.0 [facility] Comment on above: Performed By: #### E RUR #### [facility] [address] [place] [address] Dr. Grzegorz Wang Erythrocyte distribution width (RBC) [Ratio] 15.7 % Critically high 11.0-15.0 [facility] Comment on above: Performed By: #### E RUR #### [facility] [address] [place] [address] Dr. Grzegorz Wang Hematocrit (Bld) [Volume fraction] 32.6 % Critically low 36.0-48.0 [facility] Comment on above: Performed By: #### E RUR #### [facility] [address] [place] [address] Dr. Grzegorz Wang Hemoglobin (Bld) [Mass/Vol] 9.9 g/dL Critically low 12.0-16.0 [facility] Comment on above: Performed By: #### E RUR #### [facility] [address] [place] [address] Dr. Grzegorz Wang IG # 0.02 10e3/ul Normal 0.00-0.03 [facility] Comment on above: Performed By: #### E RUR #### [facility] [address] [place] [address] Dr. Grzegorz Wang IG % 0.3 % Normal 0.0-0.5 [facility] Comment on above: Performed By: #### E RUR #### [facility] [address] [place] [address] Dr. Grzegorz Wang LYMPH # 1.7 103/ul Normal 1.2-3.8 [facility] Comment on above: Performed By: #### E RUR #### [facility] [address] [place] [address] Dr. Grzegorz Wang Lymphocytes/100 WBC (Bld) 28.0 % Normal 20.5-60.0 [facility] Comment on above: Performed By: #### E RUR #### [facility] [address] [place] [address] Dr. Grzegorz Wang MANUAL DIFF REQ NO Normal [facility] Comment on above: Performed By: #### E RUR #### [facility] [address] [place] [address] Dr. Grzegorz Wang MCH (RBC) [Entitic mass] 23.9 pg Critically low 26.7-34.0 [facility] Comment on above: Performed By: #### E RUR #### [facility] [address] [place] [address] Dr. Grzegorz Wang MCHC (RBC) [Mass/Vol] 30.4 g/dL Normal 29.9-35.2 [facility] Comment on above: Performed By: #### E RUR #### [facility] [address] [place] [address] Dr. Grzegorz Wang MCV (RBC) [Entitic vol] 78.7 fL Critically low 81.0-99. 0 [facility] Comment on above: Performed By: #### E RUR #### [facility] [address] [place] [address] Dr. Grzegorz Wang MONO # 0.6 103/ul Normal 0.3-0.8 [facility] Comment on above: Performed By: #### E RUR #### [facility] [address] [place] [address] Dr. Grzegorz Wang Monocytes/100 WBC (Bld) 10.4 % Normal 1.7-12.0 [facility] Comment on above: Performed By: #### E RUR #### [facility] [address] [place] [address] Dr. Grzegorz Wang NEUT # 3.3 103/ul Normal 1.4-6.5 [facility] Comment on above: Performed By: #### E RUR #### [facility] [facility] [address] [place] [address] Dr. Grzegorz Wang Neutrophils/100 WBC (Bld) 56.5 % Normal 43.0-75.0 [facility] Comment on above: Performed By: #### E RUR #### [facility] [address] [place] [address] Dr. Grzegorz Wang Platelet mean volume (Bld) [Entitic vol] 10.2 fL Normal 9.5-13.5 [facility] Comment on above: Performed By: #### E RUR #### [facility] [address] [place] [address] Dr. Grzegorz Wang PLT 216 103/ul Normal 150-450 [facility] Comment on above: Performed By: #### E RUR #### [facility] [address] [place] [address] Dr. Grzegorz Wang RBC 4.14 106/ul Critically low 4.20-5.40 [facility] Comment on above: Performed By: #### E RUR #### [facility] [address] [place] [address] Dr. Grzegorz Wang WBC 5.9 103/ul Normal 4.0-11.0 [facility] Comment on above: Performed By: #### E RUR #### [facility] [address] [place] [address] HEAD WO CONon [...] DORIAN GREENE Date: 2021-07-29 15:01 Normal The [facility] ER URINE PROFILEon 2 Bilirubin Ql (U) Negative Normal NEGATIVE The [facility] Comment on above: Performed By: #### E RUR #### [facility] [address] [place] [address] Dr. Grzegorz Wang Clarity (U) CLEAR Normal CLEAR [facility] Comment on above: Performed By: #### E RUR #### [facility] [address] [place] [address] Dr. Grzegorz Wang Color (U) LT. YELLOW Normal YELLOW The [facility] Comment on above: Performed By: #### E RUR #### [facility] [address] [place] [address] Dr. Grzegorz Wang ERUAHD A micrscopic examination will be performed if indicated. Normal [facility] Comment on above: Performed By: #### E RUR #### [facility] [address] [place] [address] Dr. Grzegorz Wang Glucose Ql (U) Negative Normal NEGATIVE [facility] Comment on above: Performed By: #### E RUR #### [facility] [address] [place] [address] Dr. Grzegorz Wang Hemoglobin Ql (U) Negative Normal NEGATIVE [facility] Comment on above: Performed By: #### E RUR #### [facility] [address] [place] [address] Dr. Grzegorz Wang Ketones Ql (U) Negative Normal NEGATIVE [facility] Comment on above: Performed By: #### E RUR #### [facility] [address] [place] [address] Dr. Grzegorz Wang LEUKOCYTES Negative Normal NEGATIVE [facility] Comment on above: Performed By: #### E RUR #### [facility] [address] [place] [address] Dr. Grzegorz Wang Nitrite Ql (U) Negative Normal NEGATIVE [facility] Comment on above: Performed By: #### E RUR #### [facility] [address] [place] [address] Dr. Grzegorz Wang pH (U) 5.5 [pH] Normal 5-9 [facility] Comment on above: Performed By: #### E RUR #### [facility] [address] [place] [address] Dr. Grzgeorz Wang SPEC GRAVITY 1.010 Normal 1.005-<=1.0 25 [facility] Comment on above: Performed By: #### E RUR #### [facility] [address] [place] [address] Dr. Grzegorz Wang UA PROTEIN Negative Normal NEGATIVE/ TRACE [facility] Comment on above: Performed By: #### E RUR #### [facility] [address] [place] [address] Dr. Grzegorz Wang UR MICRO IND NOT INDICATED Normal [facility] Comment on above: Performed By: #### E RUR #### [facility] [address] [place] [address] Dr. Grzegorz Wang Urobilinogen Qn (U) 0.2 {Lidya'U}/dL Normal 0.2 - 1. 0 [facility] Comment on above: Performed By: #### E RUR #### [facility] [address] [place] [address] Dr. Grzegorz Wang PROF 14(COMP METB)on 022 Albumin [Mass/Vol] 3.1 g/dL Critically low 3.4-5.0 [facility] Comment on above: Performed By: #### E RUR #### [facility] [address] [place] [address] Dr. Grzegorz Wang Albumin/Globulin [Mass ratio] 1.0 {ratio} Normal [facility] Comment on above: Performed By: #### E RUR #### [facility] [address] [place] [address] Dr. Grzegorz Wang ALP [Catalytic activity/Vol] 99 U/L Normal 46-116 [facility] Comment on above: Performed By: #### E RUR #### [facility] [address] [place] [address] Dr. Grzegorz Wang ALT [Catalytic activity/Vol] 18 U/L Normal 14-59 [facility] Comment on above: Performed By: #### E RUR #### [facility] [address] [place] [address] Dr. Grzegorz Wang Anion gap [Moles/Vol] 10.5 mmol/L Normal Th [facility] Comment on above: Performed By: #### E RUR #### [facility] [address] [place] [address] Dr. Grzegorz Wang AST [Catalytic activity/Vol] 14 U/L Critically low 15-37 [facility] Comment on above: Performed By: #### E RUR #### [facility] [address] [place] [address] Dr. Grzegorz Wang Bilirubin [Mass/Vol] 0.3 mg/dL Normal 0.2-1.0 [facility] Comment on above: Performed By: #### E RUR #### [facility] [address] [address] [address] Grzegorz Wang Calcium [Mass/Vol] 8.5 mg/dL Normal 8.5-10.[address] [facility] Comment on above: Performed By: #### E RUR #### [facility] [address] [address] [address] Grzegorz Wang Chloride [Moles/Vol] 108 mmol/L Critically high 98-107 [facility] Comment on above: Performed By: #### E RUR #### [facility] [address] [place] [address] Dr. Grzegorz Wang CO2 [Moles/Vol] 26.0 mmol/L Normal 21.0-32.0 [facility] Comment on above: Performed By: #### E RUR #### [facility] [address] [place] [address] Dr. Grzegorz Wang Creatinine [Mass/Vol] 1.07 mg/dL Critically high 0.55-1.02 [facility] Comment on above: Performed By: #### E RUR #### [facility] [address] [place] [address] Dr. Grzegorz Wang EGFR-AF BERMUDIAN >60 Normal >=60 [facility] Comment on above: Performed By: #### E RUR #### [facility] [address] [place] [address] Dr. Grzegorz Wang EGFR-NON AF BERMUDIAN 50 mL/min/1.73m2 Critically low >=60 [facility] Comment on above: Performed By: #### E RUR #### [facility] [address] [place] [address] Dr. Grzegorz Wang Globulin (S) [Mass/Vol] 3.0 g/dL Normal T [facility] Comment on above: Performed By: #### E RUR #### [facility] [address] [place] [address] Dr. Grzegorz Wang Glucose [Mass/Vol] 87 mg/dL Normal 74-[address] [facility] Comment on above: Performed By: #### E RUR #### [facility] [address] [address] [address] Grzegorz Wang Potassium [Moles/Vol] 3.5 mmol/L Normal 3.5-5.1 [facility] Comment on above: Performed By: #### E RUR #### [facility] [address] [address] [address] Grzegorz Wang Protein [Mass/Vol] 6.1 g/dL Critically low 6.4-8.2 Th [facility] Comment on above: Performed By: #### E RUR #### [facility] [address] [address] [address] Grzegorz Wang Sodium [Moles/Vol] 141 mmol/L Normal 136-[address] [facility] Comment on above: Performed By: #### E RUR #### [facility] [address] [address] [address] Grzegorz Wang Urea nitrogen [Mass/Vol] 22.0 mg/dL Critically high 7.0-18.0 [facility] Comment on above: Performed By: #### E RUR #### [facility] [address] [address] [address] Grzegorz Wang Urea nitrogen/Creatinine [Mass ratio] 20.6 mg/mg Normal [facility] Comment on above: Performed By: #### E RUR #### [facility] [address] [place] [address] Dr. Grzegorz Wang PROTIMEon 07-29-2021 INR Coag (PPP) [Relative time] 0.99 {INR} Normal [facility] Comment on above: Performed By: #### P TT, PT #### [facility] [address] [place] [address] Dr. Grzegorz Wang INR GUIDELINES SEE BELOW Normal [facility] Comment on above: Result Comment: DENTON RED INR: 2.0 - 3.0 CONDITIONS NOT LISTED BELOW 2.5 - 3.5 FOR PROSTHETIC HEART VALVE REPLACEMENT 2.5 - 3.5 RECURRENT THROMBOSIS Performed By: #### P TT, PT #### [facility] [address] [place], [place] [address] Dr. Grzegorz Wang PT Coag (PPP) [Time] 10.7 s Normal 9.0-11.6 [facility] Comment on above: Performed By: #### P TT, PT #### [facility] [address] [place], [place] [address] Dr. Grzegorz Wang PTTon 07-29-2021 aPTT Coag (Bld) [Time] 31.0 s Normal 22.3-36.2 [facility] Comment on above: Performed By: #### P TT, PT #### [facility] [address] [place], [place] [address] Dr. Grzegorz Wang XR CHEST 1 Von [...] by: NATACHA TO Date: 2021-07-29 14:54 Normal [facility] XR hand RT min 3V*on 022 XR hand RT min 3V* [facility] Other XR hand RT min 3V* [facility] [employer] Other XR hand RT min 3V* [address] [place] [address] [employer] Other XR hand RT min 3V* [place] [address] [employer] Other XR hand RT min 3V* XRay Report [facility] Other XR hand RT min 3V* Signed [facility] Other XR hand RT min 3V* Patient: Ozzie Gifford MR#: [id number] [facility] Other XR hand RT min 3V* [id number] [facility] Other XR hand RT min 3V* : 1950 Acct:[id number] [facility] Other XR hand RT min 3V* Age/Sex: 71 / F ADM Date: 07/12/21 [facility] Other XR hand RT min 3V* Loc: SOXD Room: Type : [facility] Other XR hand RT min 3V* Attending Dr: Neeraj Arrington MD [facility] Other XR hand RT min 3V* Ordering Provider: Susie Arrington MD [facility] Other XR hand RT min 3V* Date of Service: 07/12/21 [facility] Other XR hand RT min 3V* XR/XR hand RT min 3V*: Right hand pain [facility] Other XR hand RT min 3V* Copies to: Susie Arrington MD [facility] Other XR hand RT min 3V* XR hand RT min 3V* 07/12/2021 10:43 AM [facility] Other XR hand RT min 3V* SIGNS AND SYMPTOMS: Fall, pain in right hand greatest in the right thumb with swelling [facility] Other XR hand RT min 3V* PROTOCOL: Frontal, lateral, and oblique radiographs of the right hand [facility] Other XR hand RT min 3V* COMPARISON: None [facility] Other XR hand RT min 3V* FINDINGS: [facility] Other XR hand RT min 3V* There is mild narrowing of the distal interphalangeal joints. There is a mild flexion deformity of [facility] Other XR hand RT min 3V* the fifth proximal interphalangeal joint. There is mild narrowing of the first metacarpophalangeal [place] Other XR hand RT min 3V* junction with mild t o moderate degenerative change at the first carpometacarpal joint. There is no [facility] Other XR hand RT min 3V* evidence of acute displaced fracture. No evidence of dislocation. [facility] Other XR hand RT min 3V* XR/XR hand RT min 3V* [facility] Other XR hand RT min 3V* IMPRESSION: [facility] Other XR hand RT min 3V* No evidence of fracture. [facility] Other XR hand RT min 3V* Degenerative changes are noted, greatest in the thumb. [facility] Other XR hand RT min 3V* There is a mild flexion deformity of the fifth proximal interphalangeal joint. [facility] Other XR hand RT min 3V* Impression dictated by: Bambi Sung M.D.07/12/2021 12:29 PM [facility] Other XR hand RT min 3V* Dictation Location: [place] [address] [facility] Other XR hand RT min 3V* Transcribed By: SHYANN 07/12/21 1229 [place] Other XR hand RT min 3V* Dictated By: Bambi Sung II, MD 07/12/21 1228 [place] Other XR hand RT min 3V* Signed By: [facility] Other XR hand RT min 3V* 07/12/[address] [place] [address] [employer] Other CBC AUTO DIFFon 05-08-2021 BASO # 0.1 103/ul Normal 0.0-0.1 [facility] Comment on above: Performed By: #### C BC #### [facility] [address] [address] [address] Grzegorz Wang Basophils/100 WBC (Bld) 0.8 % Normal 0.2-2.0 [facility] Comment on above: Performed By: #### C BC #### [facility] [address] [address] [address] Grzegorz Wang EO # 0.3 103/ul Normal 0.0-0.7 [facility] Comment on above: Performed By: #### C BC #### [facility] [address] [place] [address] Dr. Grzegorz Wang Eosinophils/100 WBC (Bld) 3.8 % Normal 0.9-7.0 [facility] Comment on above: Performed By: #### C BC #### [facility] [address] [place] [address] Dr. Grzegorz Wang Erythrocyte distribution width (RBC) [Ratio] 14.1 % Normal 11.0-15.0 [facility] Comment on above: Performed By: #### C BC #### [facility] [address] [place] [address] Dr. Grzegorz Wang Hematocrit (Bld) [Volume fraction] 34.4 % Critically low 36.0-48.0 [facility] Comment on above: Performed By: #### C BC #### [facility] [address] [place] [address] Dr. Grzegorz Wang Hemoglobin (Bld) [Mass/Vol] 10.4 g/dL Critically low 12.0-16.0 [facility] Comment on above: Performed By: #### C BC #### [facility] [address] [place] [address] Dr. Grzegorz Wang IG # 0.04 10e3/ul Critically high 0.00-0.03 [facility] Comment on above: Performed By: #### C BC #### [facility] [address] [place] [address] Dr. Grzegorz Wang IG % 0.5 % Normal 0.0-0.5 [facility] Comment on above: Performed By: #### C BC #### [facility] [address] [address] [address] Grzegorz Wang LYMPH # 1.7 103/ul Normal 1.2-3.8 [facility] Comment on above: Performed By: #### C BC #### [facility] [address] [address] [address] Grzegorz Wang Lymphocytes/100 WBC (Bld) 22.1 % Normal 20.5-60.0 [facility] Comment on above: Performed By: #### C BC #### [facility] [address] [address] [address] Grzegorz Wang MANUAL DIFF REQ NO Normal [facility] Comment on above: Performed By: #### C BC #### [facility] [address] [place] [address] Dr. Grzegorz Wang MCH (RBC) [Entitic mass] 25.6 pg Critically low 26.7-34.0 [facility] Comment on above: Performed By: #### C BC #### [facility] [address] [place] [address] Dr. Grzegorz Wang MCHC (RBC) [Mass/Vol] 30.2 g/dL Normal 29.9-35.2 [facility] Comment on above: Performed By: #### C BC #### [facility] [address] [place] [address] Dr. Grzegorz Wang MCV (RBC) [Entitic vol] 84.5 fL Normal 81.0-99.0 [facility] Comment on above: Performed By: #### C BC #### [facility] [address] [address] [address] Grzegorz Wang MONO # 0.8 103/ul Normal 0.3-0.8 [facility] Comment on above: Performed By: #### C BC #### [facility] [address] [place] [address] Dr. Grzegorz Wang Monocytes/100 WBC (Bld) 11.1 % Normal 1.7-12.0 [facility] Comment on above: Performed By: #### C BC #### [facility] [address] [address] [address] Grzegorz Wang NEUT # 4.7 103/ul Normal 1.4-6.5 [facility] Comment on above: Performed By: #### C BC #### [facility] [address] [address] [address] Grzegorz Wang Neutrophils/100 WBC (Bld) 61.7 % Normal 43.0-75.0 [facility] Comment on above: Performed By: #### C BC #### [facility] [address] [place] [address] Dr. Grzegorz Wang Platelet mean volume (Bld) [Entitic vol] 10.6 fL Normal 9.5-13.5 [facility] Comment on above: Performed By: #### C BC #### [facility] [address] [place] [address] Dr. Grzegorz Wang PLT 281 103/ul Normal 150-450 [facility] Comment on above: Performed By: #### C BC #### [facility] [address] [place] [address] Dr. Grzegorz Wang RBC 4.07 106/ul Critically low 4.20-5.40 [facility] Comment on above: Performed By: #### C BC #### [facility] [address] [place] [address] Dr. Grzegorz Wang WBC 7.6 103/ul Normal 4.0-11.0 [facility] Comment on above: Performed By: #### C BC #### [facility] [address] [place] [address] CHEST WO CONon [...] LUCI MARADIAGA Date: 2021-05-08 18:59 Normal The [facility] CT HEAD WO CONon 05-08-2021 [...] MITZI LOWRY Date: 2021-05-08 17:27 Normal The [facility] CT NECK ST WO CONon [...] The parotid glands, parapharyngeal spaces and left dockworker spaces appear normal. A tiny amount of air in the venous system in the right parapharyngeal space and in the venous system of the right dockworker space. A tiny amount air in probably [...] space and venous system in the right dockworker space, likely iatrogenic. No abnormal fluid collection. Prior right carotid endarterectomy. 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 Electronically authenticated by: BASIM CABAN Date: 2021-05-08 19:23 Normal [facility] PROF CHEM 8 (BAS METB)on Anion gap [Moles/Vol] 12.3 mmol/L Normal [facility] Comment on above: Performed By: #### A PHIL OWEN #### [facility] [address] [address] [address] Grzegorz Wang Calcium [Mass/Vol] 8.4 mg/dL Critically low 8.5-10.1 [facility] Comment on above: Performed By: #### A MY, LIPA #### [facility] [address] [address] [address] Grzegorz Wang Chloride [Moles/Vol] 108 mmol/L Critically high 98-107 [facility] Comment on above: Performed By: #### A MY, LIPA #### [facility] [address] [place] [address] Dr. Grzegorz Wang CO2 [Moles/Vol] 25.9 mmol/L Normal 22.0-30.0 [facility] Comment on above: Performed By: #### A MY, LIPA #### [facility] [address] [place] [address] Dr. Grzegorz Wang Creatinine [Mass/Vol] 1.18 mg/dL Critically high 0.52-1.04 [facility] Comment on above: Performed By: #### A BRAYDEN LIPA #### [facility] [address] [place] [address] Dr. Grzegorz Wang EGFR-AF BERMUDIAN 55 mL/min/1.73m2 Critically low >=60 [facility] Comment on above: Performed By: #### A BRAYDEN, LIPA #### [facility] [address] [place] [address] Dr. Grzegorz Wang EGFR-NON AF BERMUDIAN 45 mL/min/1.73m2 Critically low >=60 [facility] Comment on above: Performed By: #### A MY, LIPA #### [facility] [address] [place] [address] Dr. Grzegorz Wang Glucose [Mass/Vol] 84 mg/dL Normal 74-[address] [facility] Comment on above: Performed By: #### A MY, LIPA #### [facility] [address] [place] [address] Dr. Grzegorz Wang Potassium [Moles/Vol] 3.2 mmol/L Critically low 3.4-5.0 [facility] Comment on above: Performed By: #### A MY, LIPA #### [facility] [address] [place] [address] Dr. Grzegorz Wang Sodium [Moles/Vol] 143 mmol/L Normal 137-[address] [facility] Comment on above: Performed By: #### A PHIL OWEN #### [facility] [address] [address] [address] Grzegorz Wang Urea nitrogen [Mass/Vol] 35.0 mg/dL Critically high 7.0-18.0 [facility] Comment on above: Performed By: #### A PHIL OWEN #### [facility] [address] [address] [address] Grzegorz Wang Urea nitrogen/Creatinine [Mass ratio] 29.7 mg/mg Normal [facility] Comment on above: Performed By: #### A PHIL OWEN #### [facility] [address] [address] [address] Grzegorz Wang XR PELVIS 1_2 VIEWSon [...] LUCI MARADIAGA Date: 2021-05-08 17:24 Normal [facility] XR wrist LT min 3V*on 2021 XR wrist LT min 3V* [facility] [place] Other XR wrist LT min 3V* [facility] [employer] Other XR wrist LT min 3V* [address] [place] [address] [employer] Other XR wrist LT min 3V* [place] [address] [place] [employer] Other XR wrist LT min 3V* XRay Report [place] Other XR wrist LT min 3V* Signed [place] [employer] Other XR wrist LT min 3V* Patient: Ozzie Gifford MR#: [id number] [employer] Other XR wrist LT min 3V* [address] [employer] Other XR wrist LT min 3V* : 1950 Acct:[id number] [facility] Other XR wrist LT min 3V* Age/Sex: 70 / F ADM Date: 05/03/21 [facility] Other XR wrist LT min 3V* Loc: SOXD Room: Type : [facility] Other XR wrist LT min 3V* Attending Dr: Neeraj Arrington MD [facility] Other XR wrist LT min 3V* Ordering Provider: Susie Arrington MD [facility] Other XR wrist LT min 3V* Date of Service: 05/03/21 [facility] Other XR wrist LT min 3V* XR/XR wrist LT min 3V*: Other specified postprocedural states [facility] Other XR wrist LT min 3V* Copies to: Susie Arrington MD [employer] Other XR wrist LT min 3V* 4 viewsLEFT wrist plain film [employer] Other XR wrist LT min 3V* COMPARISON:03/31/21 [facility] Other XR wrist LT min 3V* HISTORY:Status post ORIF distal radius fracture [facility] Other XR wrist LT min 3V* No hardware failure. Adequate bony alignment. Healing distal radius fracture noted. [facility] Other XR wrist LT min 3V* XR/XR wrist LT min 3V* [facility] Other XR wrist LT min 3V* IMPRESSION:Healing distal radius fracture. No hardware failure. [facility] Other XR wrist LT min 3V* Impression dictated by: Husam Martinez M.D.05/03/2021 2:12 PM [facility] Other XR wrist LT min 3V* Dictation Location: [place] [address] [employer] Other XR wrist LT min 3V* Transcribed By: PWS 05/03/21 1412 [facility] Other XR wrist LT min 3V* Dictated By: Husam Martinez DO 05/03/21 1411 [facility] Other XR wrist LT min 3V* Signed By: [facility] Other XR wrist LT min 3V* 05/03/21 141 No [address] [place] Other XR FOREARM LT 2 VIEWSon 03-14 [...] MARYSE LANGFORD Date: 2021-03-30 20:17 Normal [facility] [facility] Cardiovascular Lab Reporton 03-03-2020 Cardiovascular Lab Report [facility] MR #: [id number] Department of Physician: Donna Henderson M.D. Division of Service Date: 03/03/2020 Cardiology Birthdate: 1950 Adult Cardiovascular Room #: [place] [address] Cardiovascular Laboratory Report FINAL IMPRESSION: 1. Moderate [...] femoral vein and artery was obtained. A 6-Moroccan 11 cm sheath was inserted in each. Difficulty exchanging the micropuncture kit for a 6-Moroccan sheath encountered for the arterial access site; [...] physiological assessment of the coronary lesions. A 6-Moroccan XB 3.5 guide catheter was advanced over [...] trauma. The guide catheter was removed. A 5-Moroccan JR4 guide catheter was advanced in and [...] Doty M.D. Date Trans: 03/03/2020 12:28 P/antonio [id number] cc: Nicolas Carrillo M.D. Heart Failure/ Transplant Mailstop [address] [facility] [address], VP DATA [address] [place] Andreia Mailstop [address] [facility] [address] Normal [facility] Vital Signs Date Time Vital Sign Value Performing Clinician Facility 10-16-2022 14:10-0400 Body height 154.94 cm Kori Temple Other [facility] 10-16-2022 14:10-0400 Body mass index (BMI) [Ratio] 26.53 kg/m2 Kori Temple Other [facility] 10-16-2022 14:10-0400 Body temperature 98.1 [degF] Kori Windy Other [facility] Other 10-16-2022 14:10-0400 Body weight 63.69 kg Kori Windy Other [facility] Other 10-16-2022 14:10-0400 Diastolic blood pressure 81 mm[Hg] Kori Windy Other [facility] 10-16-2022 14:10-0400 Respiratory rate 18 /min Kori Windy Other [facility] 10-16-2022 14:10-0400 SaO2% (BldA) [Mass fraction] 98 % Kori Windy Other [facility] 10-16-2022 14:10-0400 Systolic blood pressure 139 mm[Hg] Kori Windy Other [facility] Other 04-04-2022 09:30-0500 Body height 154.94 cm Denver Juarez Other [facility] 04-04-2022 09:30-0500 Body mass index (BMI) [Ratio] 28.72 kg/m2 Denver Juarez Other [facility] Other 04-04-2022 09:30-0500 Body temperature 97.8 [degF] Denver Juarez Other [facility] Other 04-04-2022 09:30-0500 Body weight 68.95 kg Denver Juarez Other [facility] Other 04-04-2022 09:30-0500 Diastolic blood pressure 72 mm[Hg] Denver Millernorah Other [place] [facility] Other 04-04-2022 09:30-0500 SaO2% (BldA) [Mass fraction] 98 % Denver Juarez Other [place] [facility] Other 04-04-2022 09:30-0500 Systolic blood pressure 116 mm[Hg] Denver Juarez Other [place] [facility] Other 11-22-2021 12:12-0400 Body temperature 97.9 [degF] MD Shaikh Day Work Phone: [facility] 11-22-2021 12:12-0400 Diastolic blood pressure 82 mm[Hg] MD Shaikh Day Work Phone: [facility] 11-22-2021 12:12-0400 Heart rate 95 /min MD Shaikh Day Work Phone: [facility] 11-22-2021 12:12-0400 Respiratory rate 16 /min MD Shaikh Day Work Phone: [facility] 11-22-2021 12:12-0400 SaO2% (BldA) [Mass fraction] 98 % MD Shaikh Day Work Phone: [facility] 11-22-2021 12:12-0400 Systolic blood pressure 151 mm[Hg] MD Shaikh Day Work Phone: [facility] 11-22-2021 04:04-0400 Body weight 78.6 kg MD Shaikh Day Work Phone: [facility] 11-21-2021 17:12-0400 Body height 157.48 cm MD Shaikh Day Work Phone: [facility] 11-21-2021 13:57-0400 Diastolic blood pressure 56 mm[Hg] MD Shaikh Day Work Phone: [facility] 11-21-2021 13:57-0400 Heart rate 77 /min MD Shaikh Day Work Phone: [facility] 11-21-2021 13:57-0400 Respiratory rate 16 /min MD Shaikh Day Work Phone: [facility] 11-21-2021 13:57-0400 SaO2% (BldA) [Mass fraction] 95 % MD Shaikh Day Work Phone: [facility] 11-21-2021 13:57-0400 Systolic blood pressure 117 mm[Hg] MD Shaikh Day Work Phone: [facility] 11-21-2021 11:24-0400 Body temperature 96.9 [degF] MD Shaikh Day Work Phone: [facility] 11-21-2021 03:56-0400 Body height 157.48 cm MD Shaikh Day Work Phone: [facility] 11-21-2021 03:56-0400 Body weight 75.9 kg MD Shaikh Day Work Phone: [facility] 09-27-2021 10:15-0400 Body height 154.94 cm Denver Juarez Other [facility] 09-27-2021 10:15-0400 Body mass index (BMI) [Ratio] 35.9 kg/m2 Denver Juarez Other [facility] 09-27-2021 10:15-0400 Body temperature 96.2 [degF] Denver Juarez Other [facility] 09-27-2021 10:15-0400 Body weight 86.18 kg Denver Larry Other [facility] Other 09-27-2021 10:15-0400 Diastolic blood pressure 52 mm[Hg] Denver Juarez Other [facility] 09-27-2021 10:15-0400 SaO2% (BldA) [Mass fraction] 97 % Denver Millernorah Other [facility] 09-27-2021 10:15-0400 Systolic blood pressure 110 mm[Hg] Denver Millrenorah Other [facility] 09-22-2021 14:15-0400 Body height 154.94 cm Ilda Das Other [facility] 09-22-2021 14:15-0400 Body mass index (BMI) [Ratio] 35.9 kg/m2 Ilda Das Other [facility] 09-22-2021 14:15-0400 Body temperature 98.2 [degF] Ilda Das Other [facility] 09-22-2021 14:15-0400 Body weight 86.18 kg Ilda Das Other [facility] 09-22-2021 14:15-0400 Respiratory rate 18 /min Ilda Das Other [facility] 09-22-2021 14:15-0400 SaO2% (BldA) [Mass fraction] 98 % Ilda Das Other [facility] 09-20-2021 17:00-0400 Body height 154.94 cm Susie Arrington Other [facility] 09-20-2021 17:00-0400 Body mass index (BMI) [Ratio] 35.9 kg/m2 Susiejennifer Arrington Other [facility] Other 09-20-2021 17:00-0400 Body weight 86.18 kg Susiejennifer Arrington Other [facility] 05-03-2021 11:45-0400 Body height 154.94 cm Susie Arrington Other [facility] 05-03-2021 11:45-0400 Body mass index (BMI) [Ratio] 35.9 kg/m2 Susie Murphy Other [facility] 05-03-2021 11:45-0400 Body weight 86.18 kg Susie Arrington Other [facility] 03-02-2021 10:00-0500 Body height 154.94 cm Denver Juarez Other [facility] 03-02-2021 10:00-0500 Body mass index (BMI) [Ratio] 36.27 kg/m2 Denevr Juarez Other [facility] 03-02-2021 10:00-0500 Body temperature 96.5 [degF] Denver Juarez Other [facility] 03-02-2021 10:00-0500 Body weight 87.09 kg Denver Larry Other [facility] Other 03-02-2021 10:00-0500 Diastolic blood pressure 58 mm[Hg] Denver Juarez Other [facility] Other 03-02-2021 10:00-0500 SaO2% (BldA) [Mass fraction] 99 % Denverjessy Juarez Other [facility] Other 03-02-2021 10:00-0500 Systolic blood pressure 108 mm[Hg] Denver Juarez Other [facility] 12-01-2020 10:00-0400 Body height 154.94 cm Denver Juarez Other [facility] 12-01-2020 10:00-0400 Body mass index (BMI) [Ratio] 36.27 kg/m2 Denver Larry Other [facility] 12-01-2020 10:00-0400 Body weight 87.09 kg Denver Larry Other [facility] 12-01-2020 10:00-0400 Diastolic blood pressure 79 mm[Hg] Denver Juarez Other [facility] 12-01-2020 10:00-0400 Systolic blood pressure 149 mm[Hg] Denver Juarez Other [facility] 11-10-2020 10:30-0400 Body height 154.94 cm Denver Juarez Other [facility] Other 11-10-2020 10:30-0400 Body mass index (BMI) [Ratio] 35.9 kg/m2 Denver Juarez Other [facility] 11-10-2020 10:30-0400 Body weight 86.18 kg Denver Juarez Other [facility] Other 11-10-2020 10:30-0400 Diastolic blood pressure 84 mm[Hg] Denver Juarez Other [facility] Other 11-10-2020 10:30-0400 Systolic blood pressure 150 mm[Hg] Denver Juarez Other [facility] Other Encounters Encounter Date Encounter Type Care Provider Facility Start: 03-03-2023 ambulatory [facility] Start: 03-01-2023 Emergency department patient visit [facility] Start: 02-20-2023 End: 02-20-2023 [facility] Start: 02-16-2023 ambulatory [facility] Start: 02-13-2023 End: 02-13-2023 ambulatory [facility]GH[facility] Start: 01-24-2023 Telephone encounter Charlette Burr [facility] Comment on above: paperwork Start: 01-21-2023 ambulatory De Oliveiratamara Rodriguesd Facility: [facility] Start: 10-16-2022 End: 10-16-2022 ambulatory Kori Temple Other [facility] Start: 10-16-2022 Office outpatient visit 15 minutes Kori Temple [facility] Start: 08-28-2022 End: 08-28-2022 ambulatory [facility] Start: 04-04-2022 Office outpatient visit 15 minutes Denver Juarez [facility] Vascular Surgery Start: 04-04-2022 End: 04-04-2022 ambulatory Denver Juarez [facility] [employer] Other Start: 03-06-2022 End: 03-06-2022 ambulatory Earline Harris Other [facility] [employer] Other Start: 03-06-2022 Telephone encounter Earline Harris [facility] [address] Start: 03-05-2022 End: 03-05-2022 ambulatory MEGHANN LEVINS [facility] Start: 03-02-2022 End: 03-02-2022 ambulatory De Oliveira Fawwad Facility:[facility] Start: 03-02-2022 End: 03-02-2022 ambulatory MD Gerry Hartley Work Phone: [facility] Work Phone: Start: 03-02-2022 End: 03-02-2022 Departed Referred MD Gerry Hartley Work Phone: [facility]-Lab [place] Work Phone: Start: 02-21-2022 End: 02-22-2022 ambulatory MEGHANN FONSECA Facility:[facility] Start: 02-20-2022 End: 02-21-2022 ambulatory DE OLIVEIRA H FAWWAD Facility:[facility] Start: 01-31-2022 End: 02-01-2022 ambulatory DE OLIVEIRA H FAWWAD Facility:[facility] Start: 01-22-2022 End: 01-23-2022 ambulatory DE OLIVEIRA H FAWWAD Facility:[facility] Start: 01-18-2022 End: 01-19-[address] Facility:[facility] Start: 01-09-2022 End: 01-09-2022 ambulatory MD Shaikh Dya Work Phone: [facility] Work Phone: Start: 01-09-2022 End: 01-09-2022 Discharged Recurring MD Shaikh Day Work Phone: [facility]-Speech Therapy [address] Start: 01-02-2022 End: 01-03-2022 ambulatory SHAIKH Be DAY Facility:[facility] Start: 12-07-2021 End: 12-08-2021 ambulatory SHAIKH Be DAY Facility:[facility] Start: 11-27-2021 End: 11-28-2021 ambulatory SHAIKH Be RODRIGUESD Facility:[facility] Start: 11-26-2021 End: 11-26-2021 ambulatory SHAIKH Be DAY Facility:[facility] Start: 11-24-2021 End: 11-24-2021 Emergency department patient visit 837 [address] [facility] Facility:[id number] Start: 11-21-2021 End: 11-22-2021 Evaluation and management of inpatient MD Shaikh Day Work Phone: [facility] [place] [facility] Start: 11-14-2021 Registered Recurring MD Shaikh Day Work Phone: [facility]-Speech Therapy [address] Start: 10-31-2021 End: 10-31-2021 ambulatory Denver Juarez Other [facility] Other Start: 10-31-2021 Telephone encounter Denver Chanel [facility] Start: 10-24-2021 End: 10-25-2021 ambulatory SHAIKH Be DAY Facility:[facility] Start: 10-16-2021 End: 10-18-2021 Evaluation and management of inpatient SHAIKH Be DAY Facility:[facility] Start: 09-27-2021 End: 09-27-2021 ambulatory Denver Juarez Other [facility] Other Start: 09-27-2021 Office outpatient visit 15 minutes Denver Juarez [facility] Start: 09-22-2021 End: 09-22-2021 ambulatory Ilda Das Other [facility] Other Start: 09-22-2021 Office outpatient visit 15 minutes Ilda Das [facility] Start: 09-20-2021 End: 09-20-2021 ambulatory Susiejennifer Arrington Other [facility] Other Start: 09-20-2021 Office outpatient visit 10 minutes Susiejennifer Arrington [facility] Start: 09-02-2021 End: 09-02-2021 ambulatory SHAIKH Be DAY Facility:[facility]1 Start: 08-31-2021 End: 08-31-2021 Patient encounter procedure MD Shaikh Day Work Phone: [facility]-Ultrasound [facility] Start: 08-29-2021 Registered Recurring MD Shaikh Day Work Phone: [facility]-Speech Therapy [address] Start: 08-24-[address] Facility :[facility] Start: 08-02-2021 End: 08-02-2021 ambulatory Susie Arrington Other [facility] Start: 08-02-2021 End: 08-02-2021 Patient encounter procedure Susie Arrington [facility] Start: 07-29-2021 End: 07-29-2021 ambulatory SHAIKH Be DAY Facility:[facility] Start: 07-12-2021 End: 07-12-2021 ambulatory Susie Murphy Other [facility] Start: 07-12-2021 Office outpatient visit 15 minutes Susiejennifer Arrington [facility] Start: 07-12-2021 End: 07-12-2021 Patient encounter procedure MD Shaikh Day Work Phone: [facility]-XRay [facility] Start: 06-15-2021 End: 06-15-2021 Discharged Recurring MD Shaikh Day Work Phone: [facility]-Lcac Radar Operator/Navigator [address] Start: 05-31-2021 End: 05-31-2021 ambulatory Susie Calvey Other [facility] Start: 05-31-2021 Postop follow up vis it related to original px Susie Arrington [facility] Start: 05-08-2021 End: 05-08-2021 ambulatory SHAIKH Be REEVESWAD Facility:[facility] Start: 05-03-2021 End: 05-03-2021 ambulatory Susie Arrington Other [facility] Other Start: 05-03-2021 Postop follow up vis it related to original px Susiejennifer Arrington [facility] Start: 03-30-2021 End: 03-31-2021 ambulatory SHAIKH Be REEVESWAD Facility:[facility] Start: 03-02-2021 End: 03-02-2021 ambulatory Denver Millernorah Other [facility] Start: 03-02-2021 Office outpatient visit 15 [...] DTaP,Tdap and Td Vaccines (2 - Tdap) [facility] [employer] [facility] Start: 03-12-2023 End: 03-12-2023 Patient encounter procedure 03/12/2023 10:00 AM EST Office Visit [facility] [address] [place] [id number] Alan Elmore MD [address] [place] [address], [address] [place] [address] [facility] Start: 10-12-2022 COVID-19 Vaccine ( season) COVID-19 Vaccine ( season) [facility] Start: 03-02-2022 Bacteria identified in Urine by Culture Urine Culture [facility] Start: 11-22-2021 Comprehensive metabolic 2000 panel - Serum or Plasma [facility] Start: 11-22-2021 Magnesium measurement [facility] Start: 11-22-2021 End: 11-22-[address] [facility] Start: 11-21-2021 Patient referral to dietitian [facility] Start: 11-21-2021 Referral to chemistry manager [facility] Start: 11-21-2021 Hospital admission [facility] Start: 11-21-2021 Physical therapy procedure [facility] Start: 11-21-2021 Referral to occupational therapist [facility] Start: 11-21-[address] [facility] Start: 08-31-2021 Doppler ultrasonography of bilateral carotid arteries US carotid doppler BI [facility] Start: 08-31-2021 US.doppler Carotid arteries - bilateral [facility] Work Phone: Start: 2013 Fall Risk Screening Fall Risk Screening [facility] Start: 1998 Administration of varicella zoster vaccine Zoster (Shingles) Vaccine (1 of 2) [facility] Start: 1966 Adult BMI Screening Adult BMI Screening [facility] Start: 1960 Depression Screening Depression Screening [facility] Start: 1960 Tobacco Screening Tobacco Screening [facility] Start: 1948 Medicare Annual Wellness Visit Medicare Annual Wellness Visit [facility] Bacteria identified in Blood by Culture [facility] Bacteria identified in Urine by Culture [facility] Blood culture for bacteria, including anaerobic screen Blood Culture [facility] Patient Education Bradycardia (DC) [facility] Work Phone: Patient referral [facility] Work Phone: Urine culture Urine Culture [facility] Immunizations Immunization Date Immunization Notes Care Provider Fa cility 06-11-2020 COVID-19 Ad26.COV2.S (Clarence) MD Shaikh Day Work Phone: [facility] Payers Date Payer Category Payer Medicare [facility] MEDICARE [facility] MEDICARE ADVANTAGE [id number] 2018-Present [phone] [address] [place] [address] [id number] 2008 Unknown [id number] 1959 Medicare [id number] 1959 Self-pay [id number] 1950 Unknown [id number] 2.16.840.1.611937.3.579.2.159 1948 Unknown [id number] 2.16.840.1.220294.3.579.2.593 1948 Unknown [id number] 2.16.840.1.046754.3.579.2.593 1948 Unknown [id number] 2.16.840.1.798480.3.579.2.593 1948 Unknown [id number] 2.16.840.1.378686.3.579.2.593 1948 Unknown [id number] 2.16.840.1.562748.3.579.2.593 1948 Unknown [id number] 2.16.840.1.259366.3.579.2.593 1948 Unknown [id number] 2.16.840.1.908941.3.579.2.593 1948 Unknown [id number] 2.16840.1.645529.3.579.2.593 1948 Unknown [id number] 2.16840.1.191518.3.579.2.593 1948 Unknown [id number] 2.16840.1.771155.3.579.2.593 1948 Unknown [id number] 2.16.840.1.105610.3.579.2.593 1948 Unknown [id number] 2.16840.1.276788.3.579.2.593 1948 Unknown [id number] 2.16.840.1.195713.3.579.2.593 1948 Unknown [id number] 2.16.840.1.145874.3.579.2.593 1948 Unknown [id number] 2.16.840.1.008793.3.579.2.593 1948 Unknown [id number] 2.16.840.1.859551.3.579.2.593 1948 Unknown [id number] 2.16.840.1.341049.3.579.2.593 1948 Unknown [id number] 2.16.840.1.951851.3.579.2.593 1948 Unknown [id number] 2.16.840.1.840668.3.579.2.1259 1948 Unknown [id number] 2.16.840.1.461753.3.579.2.1286 1948 Unknown [id number] 2.16.840.1.034651.3.579.2.1286 1948 Unknown [id number] 2.16.840.1.675131.3.579.2.1286 1948 Unknown [id number] 2.16.840.1.720372.3.579.2.1286 Medicare Medicare [id number] Medicare Medicare [id number] Unknown [id number] 2.16.840.1.621893.3.579.2.531 Unknown [id number] 2.16.840.1.424895.3.579.2.531 Unknown [id number] 2.16.840.1.784660.3.579.2.531 Social History Date Type Detail Facility Start: 04-05-2018 End: 02-23-2020 Sex Assigned At [facility] Start: 07-22-2018 End: 03-31-2021 Tobacco smoking status FLIS Ex-smoker (finding) [facility] Start: 1950 Sex Assigned At Female F [facility] History of tobacco use Current smoker [facility] History of tobacco use [facility] Start: 07-22-2018 End: 02-23-2020 Cigarettes smoked current (pack per day) - Reported 1 [facility] Start: 07-22-2018 Tobacco use and exposure Smoke less [facility] Start: 08-25-2018 Alcohol intake Current non-dr camp head counselor of alcohol (finding) [facility] Frequency of Alcohol Consumption Never [employer] Start: 1950 Sex Assigned At Not on file P [employer] [facility] Medical Equipment Procedure Code Equipment Code Equipment Origin al Text Equipment Identifier Dates ORIF, fracture, wrist Orthopaedic fixation plate, non-bioabsorbable, sterile ()[id number] FDA Start: 03-31-2021 ORIF, fracture, wrist Orthopaedic bone screw, non-bioabsorbable, non-sterile ()[id number] FDA Start: 03-31-2021 ORIF, fracture, wrist Orthopaedic bone screw, non-bioabsorbable, non-sterile ()[id number] FDA Start: 03-31-2021 ORIF, fracture, wrist Orthopaedic bone screw, non-bioabsorbable, non-sterile ()[id number] FDA Start: 03-31-2021 ORIF, fracture, wrist Orthopaedic bone screw, non-bioabsorbable, non-sterile ()[id number] FDA Start: 03-31-2021 Endarterectomy, carotid Cardiovascular patch, animal-derived ()[id number] FDA Start: 04-06-2020 Sys Crd Rvl Linq Rpl [id number] - [id number] - [id number] Start: 04-08-2018 Goals Date Patient Goal [...] Facility 11-22-2021 Functional status Patient at Baseline [facility] Work Phone: 11-21-2021 Functional status Patient Not at Baseline [facility] Work Phone: Mental Status Date Assessment Result Facility 11-22-2021 Cognitive function Cognitive Sta tus Patient at Baseline [facility] Work Phone: 11-21-2021 Cognitive function Cognitive Sta tus Patient Not at Baseline [facility] Work Phone: Clinical Notes 11-10-2020 to [...] for diuresis and repeat BMP next week [facility] 02-13-2023 Note Lipid abnormalities are well controlled, continue crestor [facility] 02-13-2023 Note Hypertension is elev ated, currently will increase lasix to daily and increase potassium, Repeat BMP in 1 week Continue norvasc 2.5 mg Renal function normal [facility] 02-13-2023 Note Coronary artery dise ase is stable Continue GDMT- ASA, crestor and toprol continue risk factor modifications- heart healthy diet, regular exercise as tolerated and continue all medications. [facility] 02-13-2023 Note F/U with neuro [facility] 02-13-2023 Note UTP CARDIOLOGY PROGR ESS [...] to get appointment with Neuro/stroke service at [facility] and with her PCP DR Posey. [...] Affect: Mood nor (more content not included)... [facility] 02-13-2023 Note Patient here for [...] All other systems reviewed and are negative. [facility] 01-24-2023 Miscellaneous Notes Patient called to see if we received paperwork that was sent from her PCP in July. Caller states she has had a new stroke and needs to be seen. Patient states she has been having headaches and dizziness. Please advise [phone] Patient last seen in 2019. No paperwork has been completed or received. Please see where patient had recent stroke and gather records. Called pt. She state Dr. Hartley sent the paperwork back in November 2022. MRI was done at [facility] very recently. Artist Manager will be requesting image and any office visit notes related to neurology. Pt seems to be very frustrated by the lack of communication. Artist Manager informed that we will reach out to [facility] to gather as much information. Artist Manager must note that the quality of the call was very poor and it was hard to communicate with the patient. Asked if she could move to somewhere with a better law office receptionist, but even then the quality did not improve. At the end of the call, she showed more frustration which staff writer could not understand and she hung up. Called [facility] radiology to confirm if she has gotten any MRI in November. It was ordered by one of the hospitalists. A digital field service technician could not confirm who ordered the imaging, but confirmed that she pushed over the imaging through PACs and reports via fax. Currently waiting for response. Faxed request for hospitalization records on nov 2022. Currently waiting for response. Called and scheduled an appointment on 03/12/23 at 10:00 AM documented in this encounter [facility] 01-24-2023 Telephone encounter Note Patient called to see if we received paperwork that was sent from her PCP in July. Caller states she has had a new stroke and needs to be seen. Patient states she has been having headaches and dizziness. Please advise [phone] [employer] [facility] 01-24-2023 Telephone encounter Note Patient last seen in 2018. No paperwork has been completed or received. Please see where patient had recent stroke and gather records. [facility] 01-24-2023 Telephone encounter Note Called pt. She state Dr. Hartley sent the paperwork back in November 2022. MRI was done at [place] very recently. Artist Manager will be requesting image and any office visit notes related to neurology. Pt seems to be very frustrated by the lack of communication. Artist Manager informed that we will reach out to [facility] to gather as much information. Artist Manager must note that the quality of the call was very poor and it was hard to communicate with the patient. Asked if she could move to somewhere with a better law office receptionist, but even then the quality did not improve. At the end of the call, she showed more frustration which staff writer could not understand and she hung up. [facility] Tele[facility] encounter Note Called [facility] radiology to confirm if she has gotten any MRI in November. It was ordered by one of the hospitalists. A digital field service technician could not confirm who ordered the imaging, but confirmed that she pushed over the imaging through PACs and reports via fax. Currently waiting for response. [facility] [employer] 01-24-2023 Telephone encounter Note Faxed request for hospitalization records on nov 2022. Currently waiting for response. [facility] [employer] 01-24-2023 Telephone encounter Note Called and scheduled an appointment on 03/12/23 at 10:[address] [facility] [employer] 10-16-2022 Evaluation note Encounter Date Diagnosis Assessment [...] with chronic urinary symptoms. Patient verbalized understanding. [facility] Other 07-18-2023 NoteUT Cardiology - [facility] Subjective Ozzie Gifford is [...] , Disp: , Rfl: (more content not included)...[facility]02-22-2023 Evaluation note* Encounter Date Diagnosis [...] 1 year with repeat studies for surveillance. [facility] Other 01-23-2023 NoteHeart rate stable- 69 bpm Currently remains on toprol 25 mg daily. Denied lightheadedness/dizziness or syncopeUn[facility] 03-05-2022 NoteF/U with vascular surgery for monitoringUnMer[facility]01-23-2023 NoteWill start imdur 30 mg daily, d/w pt about headache as side effect and this should resolve after some time of taking imdur- if H/a does not resolve then we will stop medication. D/w pt that this may lower her b/p and to call office for any concerns.[facility]01-23-2023 NoteEvaluated by Vein specialist- Dr Walsh, Dr Juarez- vascular surgery Recommended lymphedema clinic.[facility]01-23-2023 Note [facility] CARDIOLOGY PROGRESS NOTE [...] not to see her vascular surgeon in [place] yet, to see the vein specialist first. [...] syncope RTC 3-6 months or earlier if neededUniversity [facility]als [facility]01-23-2023 NotePatient here for follow up echo. She's down 8# from apt last month. She had B/L LE venous reflux study 2 weeks ago, and states that physician told me it was my heart . She is referring to her LE edema. She said PCP advised her not to see her vascular surgeon in [place] yet, to see the vein specialist first. Review of Systems Constitutional: Positive for weight loss. Cardiovascular: Positive for leg swelling. Skin: Positive for color change. All other systems reviewed and are negative.[facility] 03-05-2022 Notecontinue crestor 10 mgUnMercy Health [facility] Hospital 03-05-2022 NoteHypertension is 144/86- at home she states b/p is typicaly 130/80 or less Will add imdur to regime for angina Continue toprol, lasixUnMercy Health [facility] Hospital01-23-2023 NoteContinue risk factor modifications- heart healthy diet, regular exercise as tolerated and continue all medications. Cpntinue GDMT- ASA, crestor, toprol, will start imdur.[facility]10-18-2022 NoteED Procedure Charges Entered On: 11/28/2021 17:45 EDT Performed On: 11/28/2021 17:44 EDT by Heena Crawford [employer] ([id number]) Sim Rep Sca to 2.5 [id number] : 1 Heena Crawford - 11/28/2021 17:[facility] NoteED Nursing Discharge Summary Entered On: 11/24/2021 17:29 EDT Performed On: 11/24/2021 17:29 EDT by Jennifer Mccarthy RN IN Information [id number] ED IV's : No IV ED IV Site Assessment : No IV ED Vitals Completed : Yes ED Final Assessment Completed : Yes ED Progress Note Completed : Yes Complete all PRN/Pain response forms? : Yes ED Disassociate Patient from Monitor : N/A Updated Depart Time : Yes ED Belongings sent w patient [id number] : Not applicable Jennifer Mccarthy RN - [...] No Jennifer Mccarthy RN 11/24/2021 17:29 EDT [facility] NotePROCEDURE: CT CHEST WITHOUT IV CONTRAST HISTORY: WHAT SYMPTOMS ARE YOU EXPERIENCING? - PT FELL AND HIT HEAD, PAIN, HX OF STROKE 2020, SOB, CHEST PAIN PAIN COMPARISON: None TECHNIQUE: Multiple contiguous axial CT images of the chest were obtained without the administration of intravenous contrast. Sagittal and coronal reconstructions were performed. [facility] use dose modulation, iterative reconstruction, and/or weight [...] in diameter. See below for follow-up recommendations. [facility] MANDATED QUALITY DATA - FOLLOW-UP IMAGING FOR [...] By: ISMAEL AGUILAR MD Signed Out: 11/24/21 14:28:17[facility]10-12-2022 Consult note Author Shavon Leos [facility] November 22, 2021 11:54am Note Date/Time November 22, 2021 1 1:45am [facility] [address] [place] [address] Cardiology Consult Note Signed Patient: Ozzie Gifford MR#: [id number] : 1950 Acct:[id number] Age/Sex: 71 / F Adm Date: 2 Loc: Room: [address] [place] [address] Type: ADM IN Attending Dr: Anna Valladares [...] past she underwent work-up by cardiology in [place]. She did undergo an implantable loop recorder [...] of appendectomy History of cardiac catheterization 2020 [facility] History of knee replacement right knee replacement [...] x10E3/uL Lymph # (Auto) 1.2 (1.00-4.8) x10E3/uL [place] # (Auto) 0.4 (0.0-0.8) x10E3/uL Eos # [...] ,000 ml @ 100 mls/hr IV .Q10H [facility] Rx#:[id number] Oral 250 / 500 450 / 450 [...] implantable loop recorder had seen cardiology in [place] Code(s): R00.1 - Bradycardia, unspecified (2) AMS [...] continue his long-term follow-up with his primary chemistry manager in [place] Documented By: Shavon Leos MD 11/22/21 1143 Signed By: <Electronically signed by MD Shavon Leos> 11/22/21 4280 [facility] Work Phone: 1(712) 584-425210-12-2022 Progress note Author Anna Valladares [facility] November 22, 2021 8:17am Note Date/Time November 21, 2021 1 2:10pm [facility] [address] [place] [address] Hospitalist Progress Note Signed Patient: Ozzie Gifford MR#: [id number] : 1950 Acct:[id number] Age/Sex: 71 / F Adm Date: 2 Loc: Room: [address] [place] [address] Type: ADM IN Attending Dr: Anna Valladares [...] signed by Anna Valladares MD> 11/22/21 0817 [facility] Work Phone: 1(646) 628-514310-11-2022 History and physical note Author Ashleigh Rashid [facility] November 21, 2021 6:39am Note Date/Time November 21, 2021 6 :39am [facility] [address] [place] [address] Hospitalist H&P Signed Patient: Ozzie Gifford MR#: [id number] : 1950 Acct:[id number] Age/Sex: 71 / F Adm Date: 2 Loc: ER Room: Type: [facility] ER Attending Dr: Copies to: MD Rafiq [...] of appendectomy History of cardiac catheterization 2020 [facility] History of knee replacement right knee replacement [...] % (Auto) 20.4 % (.) 11/21/21 04:12 [place] % (Auto) 9.9 % (.) 11/21/21 04:12 Eos % (Auto) 3.7 % (.) 11/21/21 04:12 Baso % (Auto) 0.8 % (.) 11/21/21 04:12 Neut # (Auto) 3.5 x10E3/uL (1.8-7.7) 11/21/21 04:12 Lymph # (Auto) 1.1 x10E3/uL (1.00-4.8) 11/21/21 04:12 [place] # (Auto) 0.5 x10E3/uL (0.0-0.8) 11/21/21 04:12 [...] pH 5.5 (5.0-9.0) 11/21/21 04:20 Ur Specific [place] 1.010 (1.001-1.030) 11/21/21 04:20 Urine Protein Negative [...] signed by Ashleigh Cruz MD> 11/21/21 0639 [facility] Work Phone: 1(460) 590-475410-11-2022 History and physical note Author Ashleigh Rashid [facility] November 21, 2021 6:39am Note Date/Time November 21, 2021 6 :39am [facility] [address] [place] [address] Hospitalist H&P Signed Patient: Ozzie Gifford MR#: [id number] : 1950 Acct:[id number] Age/Sex: 71 / F Adm Date: 2 Loc: ER Room: Type: [facility] ER Attending Dr: Copies to: MD Rafiq [...] of appendectomy History of cardiac catheterization 2020 [facility] History of knee replacement right knee replacement [...] % (Auto) 20.4 % (.) 11/21/21 04:12 [place] % (Auto) 9.9 % (.) 11/21/21 04:12 Eos % (Auto) 3.7 % (.) 11/21/21 04:12 Baso % (Auto) 0.8 % (.) 11/21/21 04:12 Neut # (Auto) 3.5 x10E3/uL (1.8-7.7) 11/21/21 04:12 Lymph # (Auto) 1.1 x10E3/uL (1.00-4.8) 11/21/21 04:12 [place] # (Auto) 0.5 x10E3/uL (0.0-0.8) 11/21/21 04:12 [...] pH 5.5 (5.0-9.0) 11/21/21 04:20 Ur Specific [place] 1.010 (1.001-1.030) 11/21/21 04:20 Urine Protein Negative [...] signed by Ashleigh Cruz MD> 11/21/21 0639 [facility] Work Phone: 1(320) 642-411508-17-2022 Evaluation note* Encounter Date Diagnosis Assessment Notes [...] studies. All of her questions were addressed. [facility] Other 08-12-2022 Evaluation note* Encounter Date Diagnosis [...] Advised that patient may continue to use yild-nsu-qpeeyeo medications as needed for supportive treatment. Discussed that it could be possible that her nausea/vomiting/diar debbi could still be some residual side effects from the Paxlovid medication. At this time she should not take anymore that. She may follow-up with family doctor as scheduled on Saturday if she has more concerns. [facility] Other 08-10-2022 Evaluation note* Encounter Date Diagnosis [...] new questions or concerns at this time. [facility] Other 06-22-2022 Evaluation note* Encounter Date Diagnosis [...] Other specified postprocedural states (ICD-10 - Z98.890) [facility] Other 06-01-2022 Evaluation note* Encounter Date Diagnosis [...] Other specified postprocedural states (ICD-10 - Z98.890) [facility] Other 04-20-2022 Evaluation note* Encounter Date Diagnosis [...] Progress activity as tolerated. Call with questions/concerns. [facility] Other 03-23-2022 Evaluation note* Encounter Date Diagnosis Assessment Notes Treatment Notes Treatment Clinical Notes Apr, Other specified postprocedural states (ICD-10 - Z98.890) Radiographs reviewed with patient. Patient is progressing well from surgery. Continue occupational therapy exercises. Call with questions/concerns . Apr, Other fractures of lower end of left radius, subsequent encounter for closed fracture with routine healing (ICD-10 - S52.592D) [facility] Other 01-20-2022 Evaluation note* Encounter Date Diagnosis [...] or reaches 80% or she develops symptoms [facility] 10-21-2021 Evaluation note* Encounter Date Diagnosis [...] suggested ice and elevation with compression stockings. [facility] Other 09-30-2021 Evaluation note* Encounter Date Diagnosis [...] classify this is asymptomatic recurrent stenoses currently. [facility] Other Evaluation noteNo assessment information available [facility] [employer] Work Phone: Evaluation noteNo InformationNort Bukupe Other Evaluation note* Diagnosis Onset Date Resolution Status JASEN (acute kidney injury) [place] AMS (altered mental status) acute Impaired mobility and activities of daily living acute Symptomatic bradycardia acut e [facility] [employer] Work Phone: Evaluation note* Diagnosis Onset Date Resolution Status JASEN (acute kidney injury) ac [place] AMS (altered mental status) acute Impaired mobility and activities of daily living acute Symptomatic bradycardia acut e H/O traumatic brain injury c hronic HLD (hyperlipidemia) chronic HTN, goal below 140/90 chron ic [facility] [employer] Work Phone: History general Narrative - Reported* [...] History childbirth Hospitalization History X2 strokes 2018 [facility] Other History general Narrative - Reported* Type [...] History childbirth Hospitalization History X2 strokes 2018 [facility] Other Hospital Discharge instructions Additional Instructions Please call and schedule an appointment with your established Mis Specialist. We attempted to make this appointment for you but the office was currently unavailable.[facility] Work Phone: InstructionsNot on filedocumented in this encounter [facility] Summary Purpose Family History No Family [...] and content) DATE CREATED AUTHOR 03/09/2020 [facility] DATE CREATED AUTHOR AUTHOR'S ORGANIZ ATION 12/03/2021 [facility] DATE CREATED AUTHOR AUTHOR'S ORGANIZ ATION 02/28/2022 [facility] DATE CREATED AUTHOR AUTHOR'S ORGANIZ ATION 01/22/2023 [facility] DATE CREATED AUTHOR AUTHOR'S ORGANIZ ATION 02/21/2023 [facility] EPIC DATE CREATED AUTHOR AUTHOR'S ORGANIZ ATION 02/28/2023 [facility] DATE CREATED AUTHOR AUTHOR'S ORGANIZ ATION 03/03/2023 [...] Young MD Other Provider Active Maddie Garcia [facility] Other Provider Active Team Status: Inactive Member [...] Active Earline Harris APRN Attending Provider Active [employer] Relationship Specialty Start Date End Date Gerry [facility] MD [address] [place] [address] PCP - General Family Medicine 04/07/18 Goals [...] BE BASED ON THE PRIMARY CLINICAL RECORDS. [facility] [employer] [facility]. provides no warranty or guarantee of the accuracy or completeness of information in this document.
[2023-03-06 08:27] LABS: Adenovirus NOT DETECTED (NOT DETECTE); Bordetella parapertussis NOT DETECTED (NOT DETECTE); Coronavirus 229E NOT DETECTED (NOT DETECTE); Coronavirus HKU1 NOT DETECTED (NOT DETECTE); Coronavirus NL63 NOT DETECTED (NOT DETECTE); Coronavirus OC43 NOT DETECTED (NOT DETECTE); Human Metapneumovirus NOT DETECTED (NOT DETECTE); Human Rhinovirus/Enterovirus NOT DETECTED (NOT DETECTE); Influenza A NOT DETECTED (NOT DETECTE); Influenza B NOT DETECTED (NOT DETECTE); Mycoplasma pneumoniae NOT DETECTED (NOT DETECTE); Parainfluenza Virus 1 NOT DETECTED (NOT DETECTE); Parainfluenza Virus 2 NOT DETECTED (NOT DETECTE); Parainfluenza Virus 3 NOT DETECTED (NOT DETECTE); Parainfluenza Virus 4 NOT DETECTED (NOT DETECTE); Respiratory Syncytial Virus NOT DETECTED (NOT DETECTE); SARS-CoV-2 NOT DETECTED (NOT DETECTE)
== END 2023-03-06 08:05 | disposition home or self-care (01) ==
LOC: LAB 08:06
PROVIDERS: PCP Internal Medicine; Visit Provider Internal Medicine
DX: Z20.822 Contact with and (suspected) exposure to COVID-19 (principal); J06.9 Acute upper respiratory infection, unspecified
CPT/HCPCS: 0202U

== ENCOUNTER 2023-08-26 09:41 | Outpatient (OUT) | payer MEDICARE, SELFPAY ==
--- NOTE | 2023-08-26 10:35 | FL_ITS ---
[address] [address] Patient Name: FITZ GIFFORD MRN: [id number] date: 1950 Sex: F Assigned Patient Location: [place] Current Patient Location: [place] Accession/Order Number: [id number] Exam Date: 08/26/2023 10:00 Report Date: 08/26/2023 10:53 At the request of: SHAIKH MILLIE Procedure: FL modified barium swallow EXAMINATION: FL modified barium swallow HISTORY: Oropharyngeal Dysphagia R13.12 FLUORO DOSE: unknown COMPARISON: No relevant comparison available. TECHNIQUE: A swallowing evaluation was performed with fluoroscopy in the usual manner. Standard level fluoroscopic mode of operation utilized. The procedure was recorded FINDINGS: ORAL PHASE: Poor clearing of the oral cavity. PHARYNGEAL PHASE: Normal swallowing. ASPIRATION: None. STRUCTURE: Normal. No visible obstruction, stricture, or dilatation. OTHER: Negative. FL/FL modified barium swallow IMPRESSION: No penetration or aspiration. Electronically authenticated by: NATACHA SANTANA Date: 08/26/2023 10:53
== END 2023-08-26 09:42 | disposition home or self-care (01) ==
LOC: FL 09:41
PROVIDERS: PCP Internal Medicine; Visit Provider Internal Medicine
DX: R13.12 Dysphagia, oropharyngeal phase (principal)
CPT/HCPCS: 74230; 92611

== ENCOUNTER 2023-10-26 09:04 | Outpatient (OUT) | payer MEDICARE, SELFPAY ==
--- OUTSIDE RECORDS SUMMARY | 2023-10-26 09:07 | XMS_ITS | CCD ---
Author Organization [facility] Inform ion Partnership [facility] Care Team Providers Care Chart Snatcher Name Role Phone Denver Juarez Unavailable Susie Arrington Unavailable MD Eddy Day Primary Care Provider MD Susie Arrington R Attending Provider [phone] MD Gerry Godwin Primary Care Provider MD Eddy Day Attending Provider MD Denver Juarez Attending Provider Ilda Das Unavailable MD Eddy Day Primary Care Provider MD Gerry Godwin Primary Care Provider MD Eddy Day Attending Provider DO Rafiq Bahena Emergency Provider Al MD Ashleigh Roche Admit Provider MD Ashleigh Card Attending Provider [phone] LESTER Castañeda Other Provider Unavailable DO Tye Mendoza Other Provider [phone] MD Betito Arellano Other Provider [phone] MD Aneesh Zendejas Other Provider MD Shavon Leos Other Provider [phone] MD Brayan Ribera Other Provider CÉSAR Arenas Other Provider MD Shefali Garibay Other Provider MD Vannessa Nava Other Provider MD Alissa Young Other Provider Jose [facility] Maddie Westbrook Other Provider [phone] MD Anna Valladares Attending Provider [phone] NO FAMILY PHYSICIAN, 837 Primary Care Unavail able MIKE VIDES, - LUIS Attending Unavaila MD Eddy Swenson Primary Care Provider DO Rafiq Bahena Emergency Provider Al MD Ashleigh Roche Admit Provider MD Anna Valladares Attending Provider [phone] MD Gerry Godwin Primary Care Provider MD Eddy Day Attending Provider [phone] Admitting Unavailable LIZ LANE Attending Unavailable FAWWAD, DE OLIVEIRA H Primary Care Unavailable FAWWAD, DE OLIVEIRA H Admitting Unavailable FAWWAD, DE OLIVEIRA H Attending Unavailable FAWWAD, DE OLIVEIRA H Primary Care Unavailable Nico, DR Senior Consulting Unavailable FAWWAD, DE OLIVEIRA H Consulting Unavailable DAVID, LIZ Admitting Unavailable LIZ LANE Attending Unavailable FAWWAD, DE OLIVEIRA H Primary Care Unavailable LIZ LANE Consulting Unavailable FAWWAD, DE OLIVEIRA H Primary [...] LOWRY Consulting Unavailable BASIM CABAN Consulting Unavailable LILIAM LANEINDA Admitting Unavailable LIZ LANE Attending Unavailable FAWWAD, [...] FAWWAD, DE OLIVEIRA H Consulting Unavailable Indra Lozaad Consulting Unavailable FAWWAD, DE OLIVEIRA H Admitting [...] JACOBS Consulting Unavailable DORIAN GREENE Consulting Unavailable NAATCHA CRUZ Consulting Unavailable FAWWAD, DE OLIVEIRA H Primary Care Unavailable NAEEM, DR GERRY Carrasco Admitting Unavailable NAEEM, DR GERRY Carrasco Attending Unavailable CHERISE, DR INDRA Carias Consulting Unavaildelia LUONG, DR INDRA Carias Procedure Practitioner Julia vailable NAEEM, DR GERRY Carrasco Consulting Unavailable ALONSO JACOBS Procedure Practitioner Unavail able ALONSO JACOBS Consulting Unavailable LYNN OLSON Consulting Unavailable INDRA DE LA ROSA Consulting Unavailable GALINDO LARYR Consulting Unavailable FAWWAD, DE OLIVEIRA H Primary Care Unavailable EDDI, SHERRI Consulting Unavailable EDDI, SHERRI Admitting Unavailable EDDI, SHERRI Attending Unavailable MARYSE LANGFORD Consulting Unavailable FAWWAD, [...] Provider Earline Harris Unavailable Kori Temple Unavailable Gerry Godwin MD Primary Care Provider SHAIKH DAY Primary Care Physician MD Lazaro Dayikh Primary Care Provider [phone] MD Eddy Day Attending Provider Shaik Day MDh Primary Care Provider MD Lazaro Dayikh Primary Care Provider MD Denver Juarez Attending Provider MD Denver Juarez Admit Provider MOHINDER Still Attending Provider [phone] Hannah Still Attending Unavailable Hannah Still Admitting Unavailable MARTIN ESPINOSA Attending Unavailable RABIA DUBOSE Referring Unavailable NADERER, GERRY Primary Care Unavailable NADERER, GERRY Referring Unavailable NADERER, GERRY Primary Care Unavailable NADERER, GERRY Primary Care Unavailable NADERER, GERRY Referring Unavailable NADERER, GERRY Primary Care Unavailable NADERER, GERRY Referring Unavailable NADERER, GERRY Primary Care Unavailable NADERER, GERRY Referring Unavailable NADERER, GERRY Primary Care Unavailable NADERER, GERRY Referring Unavailable NADERER, GERRY Primary Care Unavailable NADERER, GERRY Referring Unavailable NADERER, GERRY Primary Care Unavailable NADERER, GERRY Referring Unavailable NADERER, GERRY Primary Care Unavailable NADERER, GERRY Referring Unavailable NADERER, GERRY Primary Care Unavailable NADERER, GERRY Referring Unavailable NADERER, GERRY Primary Care Unavailable NADERER, GERRY Referring Unavailable NADERER, GERRY Primary Care Unavailable HEMALMAPINKY CarrascoD A Attending Unavailable NADERER, GERRY Referring Unavailable NADERER, GERRY Primary Care Unavailable FAWWAD, DE OLIVEIRA Referring Unavailable Orzech, Carmen X Attending Unavailable Orzech, Carmen X Attending Unavailable Orzech, Carmen X Attending Unavailable Orzech, Carmen X Admitting Unavailable MD Eddy Day Primary Care Provider MOHINDER Sumner Attending Provider Hannah Still Admitting Unavailable Hannah Still Attending Unavailable Fawwad, De Oliveira Primary Care Unavailable Fawwad, De Oliveira Primary Care Unavailable Denver Juarez Admitting Unavailabl e Denver Juarez Attending Unavailabl e Felicita Sumner Admitting Unavailable Felicita Sumner Attending Unavailable Fawwad, De Oliveira Primary Care Unavailable Fawwad, De Oliveira Primary Care Unavailable Denver Juarez Admitting Unavailabl e Langnorah, Denver T Attending Unavailabl e Fawwad, De Oliveira Primary Care Unavailable Fawwad, De Oliveira Attending Unavailable Fawwad, De Oliveira Admitting Unavailable NICOLAS CARRILLO Attending Unavailable RAYMUNDO, MEGHANN Attending Unavailable RAYMUNDO, MEGHANN Attending Unavailable FAWWAD, DE OLIVEIRA Attending Unavailable FAWWAD, DE OLIVEIRA Attending Unavailable FAWWAD, DE OLIVEIRA Attending Unavailable FAWWAD, DE OLIVEIRA Attending Unavailable FAWWAD, DE OLIVEIRA Attending Unavailable FAWWAD, DE OLIVEIRA Attending Unavailable CINDY GREENE Attending Unavailable Allergies Allergy Classification Reported Allergen(s) Allergy Type Date of Onset Reaction(s) Facility (15 sources) Penicillin G Drug Allergy 02-20-2023 Unknown [facility] (13 sources) Penicillins; 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: [PENICILLINS] Allergy to substance 02-19-2007 [facility] (1 source) Penicillin Drug Allergy 10-22-2012 [facility] Rep[facility] (5 sources) Penicillin; 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: [penicillin] Drug Allergy [facility] Balsam Medications Current Medications Medication Drug Class(es) Dates Sig (Normalized) Sig (Original) acetaminophen 325 mg / HYDROcodone bitartrate 5 mg oral tablet (1 source) Opioid Agonist Start: 03-31-2021 take 1-2 tablets by mouth every four to six hours as needed HYDROcodone-Acet aminophen 5-325 MG 1-2 tablet as needed Orally every 4-6 hrs for 7 days Mar, Active [id number] 200 actuat albuterol 0.09 mg/actuat metered dose inhaler (1 source) beta2-Adrenergic Agonist take 2 puff(s) by inhalation every four hours albuterol HFA 90 mcg/act inhaler Inhale 2 puffs every 4 (four) hours if needed for shortness of breath 0 Active amLODIPine 2.5 mg oral tablet (10 sources) Dihydropyridine Calcium Channel Jimmy Start: 08-28-2022 End: 08-28-2023 amLODIPine 2.5 mg Tab Refills(s) 0 Start Date: 03/07/23 Status: Ordered aspirin 81 mg chewable tablet (20 sources) Platelet Aggregation Inhibitor, Nonsteroidal Anti-inflammatory Drug Start: 01-16-2023 aspirin 81 mg Chew Tab mg tab(s), Chewed, Daily, Refills(s) 0 Start Date: 03/07/23 Status: Ordered Start: 03-23-2020 End: 05-09-2023 take 81 mg by mouth once daily Aspirin Discontinued 81 MG PO Daily March 23, 2020 1:00am May 09, 2023 9:44am Start: 03-26-2019 End: 03-23-2020 take 81 mg by mouth once daily in the morning Aspirin Discontinued 81 MG PO Every morning March 26, 2019 5:28pm March 23, 2020 1:03pm Start: 04-10-2018 End: 03-26-2019 take 81 mg by mouth once daily Aspirin Discontinued 81 MG PO Daily 0 April 18, 2018 1:00am March 26, 2019 5:28pm Baclofen (20 sources) gamma-Aminobutyric Acid-ergic Agonist Start: 03-07-2023 BACLOFEN 20MG TAB BACLOFEN 20MG TAB Start Date: 03/07/23 Status: Ordered Start: 04-05-2018 take 20 mg by mouth three times daily Baclofen Active 20 MG PO Three times daily April 05, 2018 1:00am take 1 tablet by nemesio th twice daily at mealtime as needed Baclofen 20 MG 1 tablet Administer without regards to meals as needed Orally Twice a day Active take 1 tablet by nemesio th every eight hours Baclofen 20 MG 1 tablet with food or milk Orally every 8 hrs for 30 day(s) Active clonazePAM 0.5 mg oral tablet (20 sources) Benzodiazepine Start: 04-05-2018 End: 06-26-2023 ClonazePAM 0.5 mg Tab Refills(s) 0 Start Date: 03/07/23 Status: Ordered take 1 tablet by nemesio th every twenty-four hours clonazePAM 0.5 MG 1 tablet at bedtime Orally Once a day Active clopidogrel 75 mg oral tablet (20 sources) P2Y12 Platelet Inhibitor Start: 12-12-2018 End: 04-09-2023 take 1 tablet by mouth once daily Clopidogrel (Plavix) 75 mg tablet Active 75 MG PO Daily 90 90 April 09, 2023 1:00am diclofenac sodium 0.01 mg/mg topical gel (6 [...] Mar, Active FeroSul (2 sources) FeroSul Active FeroSul 325 mg oral tablet (4 sources) Start: 03-07-2023 take 1 mg by mouth three times daily FeroSul 325 mg oral tablet mg tab(s), Oral, TID, Refills(s) 0 Start Date: 03/07/23 Status: Ordered ferrous sulfate 325 mg delayed release oral tablet (20 sources) Start: 11-13-2022 take 1 tablet by mouth at mealtime ferrous sulfate 325 (65 Fe) MG EC tablet Take 1 tablet by mouth in the morning. Take with meals. 0 11/13/2022 Active Start: 11-21-2021 End: 05-12-2023 take 1 tablet by mouth once daily Ferrous Sulfate (Ferosul) 325 mg (65 mg iron) tablet Active 325 MG PO Daily November 21, 2021 12:00am Start: 12-12-2018 End: 02-18-2020 take 324 mg by mouth every other week Ferrous Sulfate Discontinued 324 MG PO EVERY 2 WEEKS December 12, 2018 10:27am February 18, 2020 1:28pm Start: 04-18-2018 End: 12-12-2018 take 324 mg by mouth twice daily Ferrous Sulfate Discontinued 324 MG PO Twice daily 60 30 April 18, 2018 1:00am December 12, 2018 10:28am furosemide 40 mg oral tablet (20 sources) Loop Diuretic Start: 02-13-2023 End: 02-13-2024 furosemide 40 mg Tab Refills(s) 0 Start Date: 03/07/23 Status: Ordered Start: 11-21-2021 take 1 tablet by nemesio th every other day Furosemide Active 20 MG PO .every other day November 21, 2021 12:00am 20mg 2 tabs Start: 11-21-2021 take 20 mg by mouth once daily in the morning Furosemide Active 20 MG PO Every morning November 20, 2021 11:00pm take 2 tablets by mo prh every other day Furosemide 20 MG 2 tablets Orally every other day Active 24 hr metoprolol succinate 25 mg extended release oral capsule (20 sources) beta-Adrenergic Jimmy Start: 04-09-2023 take 1 capsule by mouth once daily Metoprolol Succinate Active 25 MG PO Daily April 09, 2023 1:00am FreeTextSi capsule Orally Once a day; Note: Source Status: Taking; Provider: Windy Sheikh ( ) Start: 03-07-2023 take 1 mg by mouth once daily metoprolol 25 mg ER Tab mg tab(s), Oral, Daily, Refills(s) 0 Start Date: 03/07/23 Status: Ordered Start: 01-28-2023 End: 07-27-2023 take 1 tablet by mouth every twenty-four hours in the morning metoprolol succinate XL (Toprol-XL) 25 MG 24 hr tablet Indications: Primary hypertension (CMS/HCC) Take 1 tablet (25 mg) by mouth in the morning. Do not crush or chew.. 90 tablet 1 01/28/2023 07/27/2023 Active Start: 04-05-2018 End: 11-22-2021 take 25 mg by mouth once daily in the morning Metoprolol Succinate Discontinued 25 MG PO Every morning March 26, 2019 5:33pm November 22, 2021 1:21pm take 1 capsule by [facility] once daily Metoprolol Succinate 25 MG 1 capsule Orally Once a day for 30 day(s) Active nitrofurantoin, macrocrystals 25 mg / nitrofurantoin, monohydrate 75 mg oral capsule (2 sources) Nitrofuran Antibacterial Start: 07-15-2023 End: 07-22-2023 take 1 capsule by mouth twice daily Macrobid 100 mg Cap 100 mg = 1 cap(s), Oral, BID, X 7 day(s), # 14 cap(s), Refills(s) 0, Pharmacy: [facility] #[id number], 160, cm, 07/15/23 12:40:00 EDT, Height/Length Dosing, 60, kg, 07/15/23 12:40:00 EDT, Weight Dosing Start Date: 07/15/23 Stop Date: 07/22/23 Status: Ordered ondansetron 8 mg disintegrating oral tablet (4 sources) Serotonin-3 Receptor Antagonist Start: 09-22-2021 take 1 tablet by mouth every eight hours as needed Ondansetron 8 MG 1 tablet on the tongue and allow to dissolve as needed Orally every 8 hours as needed for 3 days Sep, Active phenazopyridine hydrochloride 200 mg oral tablet (3 sources) Start: 05-11-2023 take 1 tablet by mouth every eight hours Phenazopyridine (Pyridium) 200 mg tablet Active 200 MG PO Every 8 hours 6 2 May 11, 2023 12:00am potassium chloride 10 meq extended release oral capsule (9 sources) Start: 04-09-2023 take 10 mEq by mouth once daily Potassium Chloride Active 10 MEQ PO Daily April 09, 2023 1:00am Start: 03-07-2023 Potassium Chlo ride (Eyc-Upac-Iyv M10) 10 mEq oral tablet, extended release Refills(s) 0 Start Date: 03/07/23 Status: Ordered Start: 02-07-2023 potassium chlo ride ER (Micro-K) 10 MEQ ER capsule Take 10 mEq by mouth in the morning. 0 02/07/2023 Active QUEtiapine 50 mg oral tablet (20 sources) Atypical Antipsychotic Start: 03-26-2019 quetiap ine 50 mg oral tablet Refills(s) 0 Start Date: 03/07/23 Status: Ordered rosuvastatin calcium 20 mg oral tablet (20 sources) HMG-CoA Reductase Inhibitor Start: 08-28-2022 End: 08-28-2023 rosuvastatin 20 mg Tab Refills(s) 0 Start Date: 03/07/23 Status: Ordered Start: 12-12-2018 End: 04-09-2023 take 1 tablet by mouth once daily at bedtime Rosuvastatin (Crestor) 10 mg Tablet Discontinued 10 MG PO Daily at bedtime December 12, 2018 12:00am April 09, 2023 10:45am Start: 04-10-2018 End: 05-18-2018 take 1 tablet by mouth at bedtime Rosuvastatin (Crestor) 10 mg Tablet Discontinued 10 MG PO Bedtime April 18, 2018 7:54am May 18, 2018 12:02am Rosuvastatin Jimy cium Active sulfamethoxazole 800 mg / trimethoprim 160 mg oral tablet (3 sources) Dihydrofolate Reductase Inhibitor Antibacterial, Sulfonamide Antimicrobial Start: 05-11-2023 take 1 tablet by mouth twice daily Sulfamethoxazole-Trimethoprim Active 1 TAB PO Twice daily 11 15May 11, 2023 12:00am topiramate 50 mg oral tablet (15 sources) Start: 11-21-2021 topiramate 50 mg Tab Refills(s) 0 Start Date: 03/07/23 Status: Ordered 24 hr trospium chloride 60 mg extended release oral capsule (8 sources) Cholinergic Muscarinic Antagonist Start: 03-07-2023 End: 07-09-2024 take 1 capsule by mouth once daily in the morning trospium 60 mg oral capsule, extended release 60 mg = 1 cap(s), Oral, qAM, X 90 day(s), # 90 cap(s), Refills(s) 3, Pharmacy: [facility] #[id number], 160, cm, 07/15/23 12:40:00 EDT, Height/Length Dosing, 60, kg, 07/15/23 12:40:00 EDT, Weight Dosing Start Date: 07/15/23 Stop Date: 07/09/24 Status: Ordered Vitamin B-12 1000 MCG (7 sources) take 1 tablet by mouth once daily Vitamin B-12 1000 MCG 1 tablet Orally Once a day Active Completed/Discontinued Medications Medication Drug Class(es) Dates Sig (Normalized) Sig (Original) acetaminophen 325 mg oral tablet (20 sources) Start: 03-26-2019 End: 04-09-2023 take 325-650 mg by mouth once daily Acetaminophen Discontinued 325 - 650 MG PO Daily March 26, 2019 5:28pm April 09, 2023 10:46am Start: 04-18-2018 End: 03-26-2019 take 325 mg by mouth every four hours Acetaminophen Discontinued 325 MG PO Q4H 0 April 18, 2018 1:00am March 26, 2019 5:28pm cephalexin 500 mg oral capsule (8 sources) Cephalosporin Antibacterial Start: 11-22-2021 End: 04-09-2023 take 500 mg by mouth three times daily Cephalexin Discontinued 500 MG PO Three times daily 15 5 November 22, 2021 12:00am April 09, 2023 10:46am cetirizine hydrochloride 10 mg oral tablet (14 sources) Histamine-1 Receptor Antagonist Start: 02-18-2020 End: 11-21-2021 take 1 tablet by mouth once daily Cetirizine (All Day Allergy (Cetirizine)) 10 mg Tablet Discontinued 10 MG PO Daily February 18, 2020 1:00am November 21, 2021 11:26am docusate sodium 100 mg oral capsule (20 sources) Start: 04-18-2018 End: 12-12-2018 take 100 mg by mouth twice daily Docusate Sodium Discontinued 100 MG PO Twice daily 60 30 April 18, 2018 1:00am December 12, 2018 10:29am take 1 capsule by [facility] every twenty-four hours Docusate Sodium 100 MG 1 capsule as needed Orally Once a day for 30 day(s) Not-Taking hydroCHLOROthiazide 12.5 mg oral tablet (14 sources) Thiazide Diuretic Start: 12-12-2018 End: 03-23-2020 take 12.5 mg by mouth once daily in the morning Hydrochlorothiazide Discontinued 12.5 MG PO Every morning December 12, 2018 12:00am March 23, 2020 1:05pm take 1 capsule by mouth once shayna ly hydroCHLOROthiazide (MICROZIDE) 12.5 mg capsule Take 1 capsule (12.5 mg total) by mouth daily. 0 Active hydroCHLOROthiazide 12.5 mg / lisinopril 10 mg oral tablet (20 sources) Thiazide Diuretic, Angiotensin Converting Enzyme Inhibitor Start: 04-05-2018 End: 04-09-2023 take 1 tablet by mouth once daily in the morning Lisinopril-Hydrochlorothiazide Discontinued 1 TAB PO Every morning March 26, 2019 5:28pm April 09, 2023 10:45am take 10-12.5 mg by m outh once in the morning lisinopril-hydroCHLOROthiazide (PRINZIDE ,ZESTORETIC) 10-12.5 mg per tablet Take 1 tablet by mouth in the morning. 0 Active Lisinopril-hydro CHLOROthiazide Active ibuprofen 800 mg oral tablet (10 sources) Nonsteroidal Anti-inflammatory Drug Start: 04-05-2018 End: 04-18-2018 take 800 mg by mouth three times daily Ibuprofen Discontinued 800 MG PO Three times daily April 05, 2018 1:00am April 18, 2018 7:51am naproxen 500 mg oral tablet (10 sources) Nonsteroidal Anti-inflammatory Drug Start: 04-05-2018 End: 04-18-2018 take 500 mg by mouth twice daily Naproxen Discontinued 500 MG PO Twice daily April 05, 2018 1:00am April 18, 2018 7:51am traZODone (19 sources) Serotonin Reuptake Inhibitor Start: 03-26-2019 End: 03-26-2019 Trazodone Discontinued TABLET March 26, 2019 12:00am March 26, 2019 5:06pm Start: 03-26-2019 End: 03-26-2019 Trazodone Discontinued TABLE T March 26, 2019 1:00am March 26, 2019 6:06pm Start: 06-05-2018 take 1 tablet by nemesio th every twenty-four hours traZODone HCl 100 MG 1 tablet at bedtime Orally Once a day for 30 day(s) May, Not-Taking take 1.5 tablets by mouth once daily as needed for sleep traZODone (DESYREL) 100 mg tablet Take 1.5 tablets (150 mg total) by mouth nightly as needed for sleep. 0 Active traZODone (DESYR EL) 100 mg tablet Take 150 mg by mouth nightly as needed for sleep. 0 Active triamcinolone acetonide 40 mg/ml injectable suspension (10 sources) Corticosteroid Start: 05-31-2021 Kenalog-40 May, 20 mg vitamin b12 2 mg extended release oral tablet (20 sources) Vitamin B12 Start: 11-22-2021 End: 04-09-2023 Cyanocobalamin (Vitamin B-12) (Vitamin B-12) 2,000 mcg Tablet Extended Release Discontinued 1000 MCG PO Daily November 22, 2021 4:44pm April 09, 2023 10:46am Start: 03-23-2020 End: 11-22-2021 take 1 tablet by mouth once daily Cyanocobalamin (Vitamin B-12) (Vitamin B-12) 2,000 mcg Tablet Extended Release Discontinued 2000 MCG PO Daily March 23, 2020 1:00am November 22, 2021 4:44pm take 1 tablet by nemesio th every twenty-four hours Vitamin B-12 1000 MCG 1 tablet Orally Once a day Not-Taking Problems Active Problems Problem Classification Problem Date Documented Da te Episodic/Chronic Acute and unspecified renal failure (13 sources) Injury of kidney; 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: [Acute kidney failure, unspecified] Onset: 10-25-2021 11-21-2021 Episodic Acute cerebrovascular disease (20 sources) Cerebrovascular accident due to thrombus of left middle cerebral artery; 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: [Cerebral infarction due to thrombosis of left middle cerebral artery] Onset: 04-05-2018 04-11-2018 Chronic Acute cerebrovascular disease (1 source) Acute cerebrovascular disease Onset: 03-01-2023 Administrative/social admission (13 sources) Other reduced mobility; 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: [Impaired mobility and activities of daily living] 04-11-2018 Episodic Anxiety disorders (1 source) Mixed anxiety and depressive disorder; 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: [Anxiety disorder, unspecified] 03-28-2023 Chronic Cardiac dysrhythmias (20 sources) Bradycardia; 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: [Bradycardia, unspecified] 11-21-2021 Episodic Chronic kidney disease (1 source) Chronic kidney disease; 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: [CHRONIC KIDNEY DISEASE STAGE 3A] Onset: 10-25-2021 Conditions associated with dizziness or vertigo (6 sources) Dizziness; 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: [Dizziness and giddiness] Onset: 03-21-2023 03-21-2023 Episodic Congestive heart failure; nonhypertensive (1 source) Heart failure, unspecified; 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: [HEART FAILURE UNSPECIFIED] Onset: 01-31-2022 Chronic Coronary atherosclerosis and other heart disease (7 sources) Atherosclerotic heart disease of [place] coronary artery without angina pectoris; 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: [Coronary atherosclerosis] Onset: 03-23-2020 Chronic Deficiency and other anemia (1 source) Iron deficiency anemia secondary to blood loss (chronic); 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: [IRON DEFIC ANEMIA SEC BLD LOSS CHRN] Onset: 10-25-2021 Chronic Deficiency and other anemia (10 sources) Anemia; 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: [Anemia, unspecified] 04-11-2018 Episodic Disorders of lipid metabolism (16 sources) Hyperlipidemia; 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: [Hyperlipidemia, unspecified] Onset: 01-19-2022 04-11-2018 Chronic Essential hypertension (20 sources) Hypertensive disorder; 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: [Essential (primary) hypertension] Onset: 06-22-2009 04-11-2018 Chronic Fluid and electrolyte disorders (2 sources) Hypokalemia; 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: [Dehydration] Onset: 08-01-2021 Episodic Genitourinary symptoms and ill-defined conditions (6 sources) Incontinence without sensory awareness; 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: [Overflow incontinence of urine] Onset: 02-20-2023 Chronic Headache; including migraine (1 source) Migraine with aura; 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: [Migraine with aura, not intractable, without status migrainosus] Onset: 02-20-2023 02-20-2023 Chronic Headache; including migraine (4 sources) Headache 03-07-2023 Episodic Headache; including migraine (1 source) Headache; [...] W/STAGE 1-4 CKD/UNS CKD] Onset: 11-28-2021 Chronic Immunizations and screening for infectious disease (3 sources) Contact with and (suspected) exposure to other viral communicable diseases; 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: [Contact with or exposure to other viral diseases] 05-11-2023 Episodic Intracranial injury (12 sources) History of traumatic brain injury; 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: [Personal history of traumatic brain injury] 04-11-2018 Episodic Late effects of cerebrovascular disease (1 source) History of cerebrovascular accident with residual deficit; 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: [Unspecified sequelae of cerebral infarction] Onset: 02-20-2023 02-20-2023 Chronic Mood disorders (2 sources) Major depressive disorder, single episode, unspecified; 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: [Recurrent major depression in full remission] Onset: 08-01-2021 02-20-2023 Chronic Nutritional deficiencies (4 sources) Deficiency of other specified B group vitamins; 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: [DEFICIENCY SPEC B GROUP VITAMINS] Onset: 11-27-2021 Episodic Occlusion or stenosis of precerebral arteries (20 sources) Bilateral stenosis of carotid arteries; 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: [Occlusion and stenosis of bilateral carotid arteries] Onset: 11-10-2020 Resolved: 09-27-2021 Chronic Osteoarthritis (14 sources) Arthritis of hand; 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: [Primary osteoarthritis, right hand] Onset: 04-09-2007 Resolved: 09-20-2021 Chronic Other aftercare (1 source) Post-discharge follow-up; 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: [Encounter for follow-up examination after completed treatment for conditions other than malignant neoplasm] Onset: 03-06-2023 03-06-2023 Episodic Other and ill-defined cerebrovascular disease (14 sources) Cerebrovascular disease; 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: [Cerebrovascular disease, unspecified] Chronic Other and ill-defined cerebrovascular disease (1 source) Cerebrovascular disease, unspecified; 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: [CEREBROVASCULAR DISEASE UNSPECIFIED] Onset: 11-28-2021 Chronic Other circulatory disease (14 sources) History of cardiovascular surgery; 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: [Presence of other cardiac implants and grafts] Onset: 04-08-2018 04-11-2018 Chronic Other circulatory disease (1 source) Stented artery; 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: [Presence of other vascular implants and grafts] 08-08-2023 Chronic Other circulatory disease (1 source) Presence of other vascular implants and grafts; 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: [Other postprocedural status] 08-08-2023 Chronic Other connective tissue disease (1 source) [...] DISORDERS] Onset: 01-31-2022 Episodic Other gastrointestinal disorders (10 sources) Dysphagia; 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: [Dysphagia, unspecified] 04-11-2018 Episodic Other gastrointestinal disorders (2 sources) Dysphagia, oral phase; 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: [Dysphagia, oral phase] Onset: 03-14-2023 Episodic Other hereditary and degenerative nervous system conditions (10 sources) Dystonia; 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: [Dystonia, unspecified] 04-11-2018 Chronic Other nervous system disorders (1 source) Difficulty in walking, not elsewhere classified; 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: [DIFFICULTY IN WALKING NEC] Onset: 11-28-2021 Chronic Other nervous system disorders (1 source) Aphasia; 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: [APHASIA] Onset: 05-10-2021 Chronic Other nervous system disorders (5 sources) White matter disease; 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: [White matter disease, unspecified] Onset: 03-07-2023 Episodic Other nervous system disorders (1 source) Dysarthria; 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: [Dysarthria and anarthria] Onset: 02-20-2023 02-20-2023 Episodic Other nervous system disorders (1 source) Unspecified abnormalities of gait and mobility; 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: [Unspecified abnormalities of gait and mobility] Onset: 07-02-2023 Episodic Other screening for suspected conditions (not mental disorders or infectious disease) (20 sources) Patient encounter status; 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: [Encounter for screening for malignant neoplasm of colon] Onset: 05-10-2021 12-16-2018 Episodic Other skin disorders (1 source) Localized swelling, mass and lump, left lower limb; 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: [LOC SWELL MASS LUMP LT LOWER LIMB] Onset: 01-31-2022 Episodic Other upper respiratory disease (2 sources) Pain in throat; 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: [Pain in throat] Onset: 09-11-2023 Episodic Other upper respiratory infections (1 source) Acute upper respiratory infection; 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: [Acute upper respiratory infection, unspecified] Onset: 02-20-2023 02-20-2023 Episodic Ovarian cyst (7 sources) Unspecified ovarian cyst, unspecified side; 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: [Unspecified ovarian cyst, right side] Onset: 10-25-2021 Episodic Peripheral and visceral atherosclerosis (1 source) Peripheral vascular disease, unspecified; 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: [PERIPHERAL VASCULAR DISEASE UNS] Onset: 02-22-2022 Chronic Residual codes; unclassified (10 sources) Confusional state; 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: [Disorientation, unspecified] 10-26-2020 Episodic Residual codes; unclassified (9 sources) Altered mental status; 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: [Altered mental status, unspecified] 11-21-2021 Episodic Unclassified (3 sources) COUGH, UNSPECIFIED; 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: [COUGH, UNSPECIFIED] Onset: 01-08-2022 Unclassified (1 source) CHRN KIDNEY DISEASE STG 3 UNSP; 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: [CHRN KIDNEY DISEASE STG 3 UNSP] Onset: 11-28-2021 Unclassified (1 source) Occlusion and stenosis of bilateral carotid arteries; 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: [Occlusion and stenosis of bilateral carotid arteries] Onset: 04-09-2023 Urinary tract infections (11 sources) Urinary tract infection, site not specified; 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: [Urinary tract infectious disease] Onset: 11-28-2021 Episodic Varicose veins of lower extremity (18 sources) [...] hemorrhage, unspecified; 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: [Melena] Onset: 2 Episodic Genitourinary symptoms and ill-defined conditions (9 sources) Dysuria; 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: [Dysuria] Onset: 4 Episodic Malaise and fatigue (5 sources) Weakness; 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: [WEAKNESS] Onset: 2 Episodic Mood disorders (4 sources) Mood disorders Onset: 9 Resolved: 4 08-25-2018 Nausea and vomiting (1 source) Nausea with vomiting, unspecified Onset: 2 Resolved: 2 Episodic Other aftercare (1 source) snf (current) use of aspirin; 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: [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 ASPIRIN] Onset: 2 Episodic Other aftercare (1 source) Other half-way (current) drug therapy; 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: [OTH LONGTERM CURRENT DRUG THERAPY] Onset: 2 Episodic Other aftercare (1 source) Encounter for follow-up examination after completed treatment for conditions other than malignant neoplasm; 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: [ENC F/U EX AFTR CMPL TX NOT MAL SU] Onset: 2 Episodic Other aftercare (1 source) snf (current) use of antithrombotics/antipl atelets; 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: [DOCUMENT PHOTOGRAPHER 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/ANTIPLATL ETS] Onset: 2 Episodic Other circulatory [...] FIND LNG FIELD] Onset: 2 Episodic Other lower respiratory disease (2 sources) Other forms of dyspnea; 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: [Other forms of dyspnea] Onset: 4 Episodic Other nervous system disorders (1 source) Other abnormalities of gait and mobility; 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: [Other abnormalities of gait and mobility] Onset: 3 Episodic Other non-traumatic joint disorders (3 sources) [...] UNSPECIFIED] Onset: 2 Episodic Residual codes; unclassified (1 source) Pain, unspecified; 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: [Pain, unspecified] Onset: 4 Episodic Residual codes; unclassified (2 sources) Localized [...] COUGH, UNSPECIFIED; 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: [COUGH, UNSPECIFIED] Onset: 2 Results Test Name Value Interpretation Reference Range Facility Office Visiton 09-11-2023 Follow-up visit [id number] Ozzie Gifford 1950 F Date Provider Department [place] [facility] Family History Problem Relation Age of Onset Hypertension Mother Hypertension Father Heart attack Brother Family Status - Relation Status Age at Mother Father Brother Level of Service:05991 [place] OFFICE/OUTPATIENT ESTABLISHED MOD MDM 30 MIN Normal [facility] Reminderson 08-09-2023 Reminders Reminders From: Christina Saul To: EU - Administrative; Sent: 08/09/2023 10:15:11 EDT Show up: 04/13/2024 10:14:00 EST Subject: 1 yr f/u Due Date/Time: 07/14/2024 10:14:00 EDT Reminder/Recall patient seen on 07/15/2023. Patient needs a 1 yr f/u w/ PVR with AO in [place]. Appointment due by 07/14/2024 [facility] US carotid doppler BIon 07-13 US carotid doppler BI [facility] [address] [place] [address] Ultrasound Report Signed Patient: Ozzie Gifford MR#: [id number] : 1950 Acct:[id number] Age/Sex: 73 / F ADM Date: 08/08/23 Loc: [facility] Room: Type: [facility] Attending Dr: Felicita Sumner [employer]ANCIAL SUPER[employer]OR[employer] Ordering Provider: Felicita Sumner APRN Date of Service: 08/08/23 US/US carotid doppler BI: I65.23 - Occlusion and stenosis of bilateral carotid salvador... Copies to: Felicita Sumner APRN CAROTID DUPLEX INDICATION: Surveillance study after bilateral carotid revascularization procedures. PROCEDURE: Color-flow duplex scanning is used to interrogate the extracranial carotid arterial system, as well as both vertebral arteries. The proximal right internal carotid artery shows a highest peak systolic velocity of 107 cm/s with an end-diastolic velocity of 30.6 cm/s . The mid internal carotid artery measures 98.8 cm/s peak systolic with an end-diastolic velocity of 25.9 cm/s . The distal segment measures 79.1 cm/s peak systolic with an end diastolic velocity of 25.1 cm/s . The velocities of the right common carotid artery are 105 cm/s peak systolic and 17.5 cm/s end- diastolic proximally and 63.4 cm/s peak systolic and 14.4 cm/s end-diastolic distally. The peak systolic velocity ratio of the internal to the common carotid artery is 1.69 . The right external carotid artery measures 105 cm/s peak systolic. The right vertebral artery is patent at 50.5 cm/s peak systolic and with antegrade flow. The proximal left internal carotid artery shows a highest peak systolic velocity of 96 cm/s with an end-diastolic velocity of 22.5 cm/s . The mid internal carotid artery measures 118 cm/s peak systolic with an end-diastolic velocity of 25.2 cm/s . The distal segment measures 104 cm/s peak systolic with an end diastolic velocity of 23.6 cm/s . The velocities of the left common carotid artery are 70.7 cm/s peak systolic and 14.5 cm/s end-diastolic proximally and 49.4 cm/s peak systolic and 11.6 cm/s end-diastolic distally. The peak systolic velocity ratio of the internal to the common carotid artery is 2.39 . The left external carotid artery measures 20.5 cm/s peak systolic. The left vertebral artery is patent at 102 cm/s peak systolic with antegrade flow. US/US carotid doppler BI IMPRESSION: NO HEMODYNAMICALLY SIGNIFICANT STENOSIS OF EITHER EXTRACRANIAL INTERNAL CAROTID ARTERY. BOTH VERTEBRAL ARTERIES ARE PATENT WITH ANTEGRADE FLOW. Impression dictated by: Denver Juarez MD08/08/2023 2:26 PM Dictation Location: [facility] Tech: Judy Dobbins Transcribed By: [facility] 08/08/23 1426 Dictated By: Denver Juarez MD 08/08/23 1426 Signed By: 08/08/23 1426 Normal [facility] C Urineon 07-17-2023 Bacteria identified Cx Nom (U) Microbiology PROCEDURE: Urine Culture [R1] SOURCE: U CleanCatch BODY SITE: COLLECTED DATE/TIME: 07/15/2023 13:56 EDT RECEIVED DATE/TIME: 07/15/2023 18:58 EDT START DATE/TIME: 07/15/2023 18:58 EDT FREE TEXT SOURCE: Ingrid SANCHEZN, DISPATCHER TUGBOAT-C, Ingrid SANCHEZN, DISPATCHER TUGBOAT-C, Carmen X Carmen X FINAL REPORTS Final Report [] Verified Date/Time: 07/17/2023 10:42 EDT >100,000 cfu/ml Escherichia coli SUSCEPTIBILITY RESULTS LEGEND: S=Susceptible, N/R=Not Reported, Blank=Data not available, or drug not advisable or tested, I=Intermediate, ESBL=Extended spectrum beta-lactamase, R=Resistant, TFG=Thymidine-depende nt strain, ANA=Beta-lactamase positive, QUINTIN=mcg/m;(mg/L), S*=Predicted susceptible interp, R*=Predicted resistant interp EC Antibiotic QUINTIN Dilutn QUINTIN Interp Amikacin <=16 S Ampicillin <=8 S Ampicillin/ <=8/4 S Sulbactam Aztreonam <=4 S Cefazolin <=2 S Cefepime <=2 S Cefoxitin <=8 S Ceftazidime <=1 S Ceftazidime/ <=8 S Avibactam Ceftriaxone <=1 S Ciprofloxacin <=1 S Ertapenem <=0.5 S Gentamicin <=4 S Levofloxacin <=2 S Meropenem <=1 S Nitrofurantoin <=32 S Piperacillin/ <=16 S Tazobactam Tetracycline <=4 S Tigecycline <=2 S Tobramycin <=4 S Trimethoprim/ <=2/38 S Sulfa Performing Locations R1: This test was performed at: [facility], [address] [place] [address], [id number]- , [place], Normal [facility] Comment on above: Performed By: #### [id number] #### [facility] [address] [place] [id number] Ambulatory Visit Summaryon 0 07-15-2023 Ambulatory Visit Summary OZZIE WALKER :1950 Visit Date:07/15/2023 Ambulatory Visit Instructions Your Diagnosis Dysuria Incontinence without sensory awareness White matter disease UTI (urinary tract infection) Your Care Team Attending Physician - MITRA Quintero APRN, Carmen Rm Primary Care Physician - SHAIKH DAY MD This Is Your Medications List Misc Prescription (BACLOFEN 20MG TAB) amlodipine (amLODIPine 2.5 mg Tab) aspirin (aspirin 81 mg Chew Tab) clonazepam (ClonazePAM 0.5 mg Tab) ferrous sulfate (FeroSul 325 mg oral tablet) furosemide (furosemide 40 mg Tab) metoprolol (metoprolol 25 mg ER Tab) potassium chloride (Potassium Chloride (Xns-Ztxk-Rkr M10) 10 mEq oral tablet, extended release) quetiapine (quetiapine 50 mg oral tablet) rosuvastatin (rosuvastatin 20 mg Tab) topiramate (topiramate 50 mg Tab) trospium (trospium 60 mg oral capsule, extended release) Procedures Performed Breast surgery, Gastric bypass, Hysterectomy, Knee replacement. Discharge Vitals Temperature (Temporal Artery) 36.6 ?C Heart Rate (Peripheral) 78 Blood Pressure 124/84 Height 160 cm Height 63 in Weight 60 kg Weight 132 lb BMI 23.44 Medications What How Much When Why Instructions Unchanged amlodipine (amLODIPine 2.5 mg Tab) Unchanged aspirin (aspirin 81 mg Chew Tab) Chewed Every day Unchanged clonazepam (ClonazePAM 0.5 mg Tab) Unchanged ferrous sulfate (FeroSul 325 mg oral tablet) By Mouth 3 times a day Unchanged furosemide (furosemide 40 mg Tab) Unchanged metoprolol (metoprolol 25 mg ER Tab) By Mouth Every day Unchanged Misc Prescription (BACLOFEN 20MG TAB) 0 Unchanged potassium chloride (Potassium Chloride (Anx-Zaqe-Xag M10) 10 mEq oral tablet, extended release) Unchanged quetiapine (quetiapine 50 mg oral tablet) Unchanged rosuvastatin (rosuvastatin 20 mg Tab) Unchanged topiramate (topiramate 50 mg Tab) Unchanged trospium (trospium 60 mg oral capsule, extended release) 1 Capsules By Mouth Once a day (in the morning) Urinary incontinence without sensory awareness Duration: 90 Days Allergies penicillin Problems Ongoing - Any problem that you are currently receiving treatment for. Dysuria Headache Hypertension Incontinence without sensory awareness Stroke White matter disease Patient Survey You may receive a survey via text or e-mail asking about your office visit. Please share your experience with us by completing your survey. We appreciate your feedback and thank you for choosing us for your care. [facility] Patient Educationon 07-15-19 Patient Education Obstetrics and Gynecology Urinary Tract Infection, Adult A urinary tract infection (UTI) is an infection of any part of the urinary tract. The urinary tract includes the kidneys, ureters, bladder, and urethra. These organs make, store, and get rid of urine in the body. An upper UTI affects the ureters and kidneys. A lower UTI affects the bladder and urethra. What are the causes? Most urinary tract infections are caused by bacteria in your genital area around your urethra, where urine leaves your body. These bacteria grow and cause inflammation of your urinary tract. What increases the risk? You are more likely to develop this condition if: ? You have a urinary catheter that stays in place. ? You are not able to control when you urinate or have a bowel movement (incontinence). ? You are female and you: ? Use a spermicide or diaphragm for control. ? Have low estrogen levels. ? Are . ? You have certain genes that increase your risk. ? You are sexually active. ? You take antibiotic medicines. ? You have a condition that causes your flow of urine to slow down, such as: ? An enlarged prostate, if you are male. ? Blockage in your urethra. ? A kidney stone. ? A nerve condition that affects your bladder control (neurogenic bladder). ? Not getting enough to drink, or not urinating often. ? You have certain medical conditions, such as: ? Diabetes. ? A weak disease-fighting system (immunesystem). ? Sickle cell disease. ? Gout. ? Spinal cord injury. What are the signs or symptoms? Symptoms of this condition include: ? Needing to urinate right away (urgency). ? Frequent urination. This may include small amounts of urine each time you urinate. ? Pain or burning with urination. ? Blood in the urine. ? Urine that smells bad or unusual. ? Trouble urinating. ? Cloudy urine. ? Vaginal discharge, if you are female. ? Pain in the abdomen or the lower back. You may also have: ? Vomiting or a decreased appetite. ? Confusion. ? Irritability or tiredness. ? A fever or chills. ? Diarrhea. The first symptom in older adults may be confusion. In some cases, they may not have any symptoms until the infection has worsened. How is this diagnosed? This condition is diagnosed based on your medical history and a physical exam. You may also have other tests, including: ? Urine tests. ? Blood tests. ? Tests for STIs (sexually transmitted infections). If you have had more than one UTI, a cystoscopy or imaging studies may be done to determine the cause of the infections. How is this treated? Treatment for this condition includes: ? Antibiotic medicine. ? Rtmn-ykr-utfqxvu medicines to treat discomfort. ? Drinking enough water to stay hydrated. If you have frequent infections or have other conditions such as a kidney stone, you may need to see a health care provider who specializes in the urinary tract (urologist). In rare cases, urinary tract infections can cause sepsis. Sepsis is a life-threatening condition that occurs when the body responds to an infection. Sepsis is treated in the hospital with IV antibiotics, fluids, and other medicines. Follow these instructions at home: Medicines ? Take mcvh-lyx-xqhedkd and prescription medicines only as told by your health care provider. ? If you were prescribed an antibiotic medicine, take it as told by your health care provider. Do not stop using the antibiotic even if you start to feel better. General instructions ? Make sure you: ? Empty your bladder often and completely. Do not hold urine for long periods of time. ? Empty your bladder after sex. ? Wipe from front to back after urinating or having a bowel movement if you are female. Use each tissue only one time when you wipe. ? Drink enough fluid to keep your urine pale yellow. ? Keep all follow-up visits. This is important. Contact a health care provider if: ? Your symptoms do not get better after 1?2 days. ? Your symptoms go away and then return. Get help right away if: ? You have severe pain in your back or your lower abdomen. ? You have a fever or chills. ? You have nausea or vomiting. Summary ? A urinary tract infection (UTI) is an infection of any part of the urinary tract, which includes the kidneys, ureters, bladder, and urethra. ? Most urinary tract infections are caused by bacteria in your genital area. ? Treatment for this condition often includes antibiotic medicines. ? If you were prescribed an antibiotic medicine, take it as told by your health care provider. Do not stop using the antibiotic even if you start to feel better. ? Keep all follow-up visits. This is important. This information is not intended to replace advice given to you by your health care provider. Make sure you discuss any questions you have with your health care provider. Document Revised: 09/09/2020 Document Revie (more content not included)... Normal [facility] Urology Office/Clinic Noteon 07-15-2023 Urology Office/Clinic Note Chief Complaint Pt is here for Dysuria, frequency HPI Staff 5 month F/U with foul smelling urine, Dysuria, and frequency Previous DX; Urinary incontinence w/out sensory awareness, UTI is with her today PVR 28 Dysuria: _pain and burning started awhile ago Incomplete bladder emptying: not sure Hematuria: denies visible blood Frequency: every 1/2 hour to 45 minutes Urgency: _yes Nocturia: hard to say she does not sleep Stream: denies hesitation, normal stream Leaking: unknown Post void dripping: Wearing pads/ Depends: wears 2 Depends at a time changes at least 6x daily Urge incontinence: yes Stress incontinence: unknown Incontinence without Sensory Awareness: denies Abdominal pain: denies Flank pain: denies Sexual complaints: _N/A History of Present Illness I have reviewed and verified the staff HPI to be accurate for this encounter. Portions of this record may have been created with voice recognition artificial intelligence software, specifically [employer], [employer] and or [employer]. Substitutions may have occurred due to the inherent limitations of voice recognition and artificial intelligence software. Review of Systems PHQ Score Initial Depression Screen Score: 0 SCORE Physical Exam Vitals & Measurements T: 36.6 ?C(Temporal Artery) HR: 78(Peripheral) BP: 124/84 HT: 63 in HT: 160 cm WT: 60 kg WT: 132 lb BMI: 23.44 General: Well developed, well nourished, in no acute distress. Patient is here in office with her today who assists in providing history. Genitourinary: Flank Pain: none. Bladder: nonpalpable. Assessment/Plan 1. UTI (urinary tract infection) (N39.0: Urinary tract infection, site not specified) UA today with moderate leukocytes, positive nitrites. Patient complains of dysuria, foul odor, increased frequency, urgency, incontinence for about 2 weeks. She does note that she has had a lot going on with different doctors appointments via her son's recent passing. Does not feel she has been hydrating or urinating as often as she should. Will treat with Macrobid twice daily x 7 days. Finish course completely unless instructed otherwise by our office. Discussed possible side effects, discontinue use and notify office of any intolerable side effects. Rx sent to pharmacy. Increase fluid intake, avoid bladder irritants. ER for any fever, significant nausea vomiting, severe flank pain, inability urinate. Patient has been verbalized understanding. -Start Macrobid -Send urine for culture today. Ordered: nitrofurantoin, 100 mg = 1 cap(s), Oral, BID, X 7 day(s), # 14 cap(s), Refills(s) 0, Pharmacy: [facility] #[id number], 160, cm, 07/15/23 12:40:00 EDT, Height/Length Dosing, 60, kg, 07/15/23 12:40:00 EDT, Weight Dosing 2. Incontinence without sensory awareness, (N39.42: Incontinence without sensory awareness) PVR 28 ml Patient previously reported constant leakage of urine, not always with urge to void. Wearing double depends that she was changing numerous times throughout the day. notes that she has using a bathroom more frequently at baseline, but staying more dry. Patient is not able to verbalize, he depends she is going through in a day. Patient states she has decreased her intake of bladder irritants. At prior office visit, patient was started on trospium 60 mg daily. 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 She is tolerating it well without side effects. Refill sent to pharmacy. -Continue timed voids, voiding maneuvers -Follow-up 1 year for med recheck, sooner if needed Urinary incontinence without sensory awareness Ordered: trospium, 60 mg = 1 cap(s), Oral, qAM, X 90 day(s), # 90 cap(s), Refills(s) 3, Pharmacy: [facility] #[id number], 160, cm, 07/15/23 12:40:00 EDT, Height/Length Dosing, 60, kg, 07/15/23 12:40:00 EDT, Weight Dosing trospium, 60 mg = 1 cap(s), Oral, qAM, X 90 day(s), # 90 cap(s), Refills(s) 0, Pharmacy: [facility] #[id number], 160, cm, 03/07/23 10:58:00 EST, Height/Length Dosing, 60, kg, 03/07/23 10:58:00 EST, Weight Dosing [id number] Measure Post Void residual urine and/or bladder capacity by US- non-imaging 3. White matter disease (R90.82: White matter disease, unspecified) [facility] inpatient stay 03/01/23 - for head stuff per patient. CT brain w/o con 03/01/23 - stable atrophy and white matter disease [1] Patient is here with her today, states that she is following with neurology regarding her memory and worsening ambulation. Ordered: [id number] Measure Post Void residual urine and/or bladder capacity by US- non-imaging Orders: Urnls Dip Stick Auto w/o Microscopy POC [id number] Follow-up With When Contact Information MITRA Quintero APRN, Carmen Rm, FAM, URL Additional Instructions: 1 yr w/ PVR Patient Education Urinary Tract Infection, Adult Urinary Incontinence Problem List/Past Medical History Ongoing Dysuria Headache Hypertension Incontinence without sensory awareness Strok (more content not included)... Normal [facility] Comment on above: Result Comment: Elec tronically Signed By: MITRA Quintero APRN, Carmen Rm\.br\Date and Time Signed: 07/15/23 13:40 EDT Laboratory - Chemistry and C hemistry - challengeon 05-11-2023 Bilirubin Ql (U) Negative [facility] Glucose (U) [Mass/Vol] [facility] Ketones Ql (U) trace [facility] pH (U) 5.5 [pH] [facility] Specific gravity (U) [Rel density] 1.025 [facility] Urobilinogen (U) [Mass/Vol] 0.2 mg/dL [facility] Laboratory - Specimen inform ationon 05-11-2023 Appearance (U) clear [facility] Color (U) darkyellow [facility] Laboratory - Urinalysison Leukocyte esterase Test strip Ql (U) small [facility] Nitrite Ql (U) Positive [facility] Protein Ql (U) Negative [facility] No Panel Informationon 05-10 Urine Occult Blood Negative [facility] Urine Cultureon 05-11-2023 Bacteria identified Cx Nom (U) ORGANISM: Gram Negative Bacilli (O:GNB) [place] Count >100,000 PERFORMED BY: [facility] [address] [place] [address] PATHOLOGIST INFECTION CONTROL SPECIALIST YOCASTA BYRNE M.D. Normal [facility] Comment on above: Performed By: #### C UU #### [facility] [address] Bacteria identified Cx Nom (U) ORGANISM: Klebsiella pneumoniae (O:KLEPNE) [place] Count >100,000 Aerobic QUINTIN Charge (NMIC56) ---- SUSCEPTIBILITY --- ORGANISM: O:KLEPNE ANTIBIOTIC INTERPRETATION QUINTIN Amikacin S <16 Amoxacillin/K Clavulanate S <8 Ampicillin/Sulbactam S <4 Aztreonam S [...] RESISTANT TO ALL B-LACTAM DRUGS. PERFORMED BY: [place] [address] PATHOLOGIST INFECTION CONTROL SPECIALIST YOCASTA BYRNE M.D. Normal [facility] Comment on above: Performed By: #### C UU #### [facility] [address] [place], [place] [id number] [facility] Urine culture routineon 04-13 Bacteria identified Cx Nom (U) Klebsiella pneumoniae Abnormal [facility] 36on 04-19-2023 36 Note faxed to vascular surgery. Normal [facility] Activated Clotting Timeon Activated Clotting Time POC 298 s High 90-139 [facility] Comment on above: Result Comment: Refe rence Range: 90-139 (Non-heparinized) PERFORMED BY: [place] [address] PATHOLOGIST INFECTION CONTROL SPECIALIST YOCASTA BYRNE M.D. Performed By: #### A CT #### [facility] [address] [place], [place] [id number] [facility] Activated Clotting Time POC 163 s High 90-139 [facility] Comment on above: Result Comment: Refe rence Range: 90-139 (Non-heparinized) PERFORMED BY: [place] [address] PATHOLOGIST INFECTION CONTROL SPECIALIST YOCASTA BYRNE M.D. Performed By: #### A CT #### [address] Automated basophil %Ordered By: Vish Nazario on 04-12-2023 Basophils/100 WBC (Bld) 0.8 % Normal . [facility] Comment on above: Performed By: #### C BC #### [address] Automated basophil countOrde red By: Vish Nazario on 04-12-2023 Basophils (Bld) [#/Vol] 0.0 10*3/uL Normal 0.0-0.2 [facility] Comment on above: Result Comment: PERF ORMED BY: [place] [address] PATHOLOGIST INFECTION CONTROL SPECIALIST YOCASTA BYRNE M.D. Performed By: #### C BC #### [address] Automated blood monocyte cou ntOrdered By: Vish Nazario on 04-12-2023 Monocytes (Bld) [#/Vol] 0.4 10*3/uL Normal 0.0-0.8 [facility] Comment on above: Performed By: #### C BC #### [address] Automated eosinophil %Ordere d By: Vish Nazario on 04-12-2023 Eosinophils/100 WBC (Bld) 6.8 % Normal . [facility] Comment on above: Performed By: #### C BC #### [address] Automated eosinophil countOr dered By: Vish Nazario on 04-12-2023 Eosinophils (Bld) [#/Vol] 0.4 10*3/uL Normal 0.0-0.45 [facility] Comment on above: Performed By: #### C BC #### [address] Automated monocyte %Ordered By: Vish Nazario on 04-12-2023 Monocytes/100 WBC (Bld) 7.8 % Normal . [facility] Comment on above: Performed By: #### C BC #### [address] Automated neutrophil %Ordere d By: Vish Nazario on 04-12-2023 Neutrophils/100 WBC (Bld) 58.7 % Normal . [facility] Comment on above: Performed By: #### C BC #### [address] Basic Metabolic Panelon 03-0 Creatinine Clr Calc Pharmacy 51.50 Normal [facility] Comment on above: Result Comment: PERF ORMED BY: [place] [address] PATHOLOGIST INFECTION CONTROL SPECIALIST YOCASTA BYRNE M.D. Performed By: #### B MP #### [address] GFR/1.73 sq M.predicted MDRD (S/P/Bld) [Vol rate/Area] mL/min/{1.73_m2} Normal [facility] Comment on above: Performed By: #### B MP #### [address] Blood activated clotting johann e by coagulation assayOrdered By: Denver Juarez on 04-12-2023 ACT Coag (Bld) 298 s 90-139 [facility] Comment on above: Reference Range: 90- 139 (Non-heparinized) Calcium [Mass/volume] in Ser um or PlasmaOrdered By: Vish Nazario on 04-12-2023 Calcium [Mass/Vol] 9.3 mg/dL Normal 8.6-10.3 [facility] Comment on above: Performed By: #### B MP #### [address] Carbon dioxide, total [Moles /volume] in Serum or PlasmaOrdered By: Vish Nazario on 04-12-2023 CO2 [Moles/Vol] 29.4 mmol/L Normal 21.0-31.[address] [facility] Comment on above: Performed By: #### B MP #### [address] Chloride [Moles/volume] in S yolanda or PlasmaOrdered By: Vish Nazario on 04-12-2023 Chloride [Moles/Vol] 110 mmol/L High 98-107 [facility] Comment on above: Performed By: #### B MP #### [address] Complete Blood Count Auto Di ffon 04-12-2023 Mean Corpuscular HGB Conc 34.3 g/dL Normal 32.0-35.0 [facility] Comment on above: Performed By: #### C BC #### [address] NRBC% 0.2 /100{WBC} Normal 0-0.5 [facility] Comment on above: Performed By: #### C BC #### [address] Creatinine [Mass/volume] in Serum or PlasmaOrdered By: Vish Nazario on 04-12-2023 Creatinine [Mass/Vol] 0.81 mg/dL Normal 0.60-1.20 [facility] Comment on above: Performed By: #### B MP #### [address] ECG 12 lead ECGon 04-12-2023 ECG 12 lead ECG [facility] [place] [place] [address] Electrocardiograph Report Signed Patient: Ozzie Gifford MR#: [id number] : 1950 Acct:[id number] Age/Sex: 72 / F ADM Date: 04/12/23 Loc: Room: [address] [place] [address] Type: DIS IN Attending Dr: Denver Juarez MD Ordering Provider: Vish Nazario, Date of Service: 04/12/2303/06/825 ECG/ECG 12 lead ECG: pre op Copies to: Test Reason : Blood Pressure : / mmHG Vent. Rate : 074 BPM Atrial Rate : 074 BPM P-R Int : 128 ms QRS Dur : 080 ms QT Int : 380 ms P-R-T Axes : 072 055 045 degrees QTc Int : 421 ms Normal sinus rhythm Abnormal ECG When compared with ECG of 21-NOV-2021 04:05, PVCs and PACs are no longer present. Confirmed by Re Douglas ([id number]) on 04/13/2023 7:03:50 PM Referred By: Electronically Signed By:Re Douglas Transcribed By: MUS Signed By Re Douglas MD 4 1903 Normal [facility] Erythrocyte distribution wid th [Ratio] by Automated countOrdered By: Vish Nazario on 04-12-2023 Erythrocyte distribution width (RBC) [Ratio] 13.7 % Normal 11.9-15.3 [facility] Comment on above: Performed By: #### C BC #### [facility] [address] Erythrocytes [#/volume] in B lood by Automated countOrdered By: Vish Nazario on 04-12-2023 RBC (Bld) [#/Vol] 5.12 10*6/uL High 3.60-5.00 [facility] Comment on above: Performed By: #### C BC #### [facility] [address] Glucose [Mass/volume] in Ser um or PlasmaOrdered By: Vish Nazario on 04-12-2023 Glucose [Mass/Vol] 77 mg/dL Normal 70-100 [facility] Comment on above: ADA recommended refe rence rangeRandom Glucose Reference Range is dependent on time and content of last meal. Glucose of more than 200 mg/dL in a nonstressed, ambulatory subject supports the diagnosis of Diabetes Mellitus. Result Comment: [place] om Glucose Reference Range is dependent on time and content of last meal. Glucose of more than 200 mg/dL in a nonstressed, ambulatory subject supports the diagnosis of Diabetes Mellitus. ADA recommended reference range Performed By: #### B MP #### [address] Hematocrit [Volume Fraction] of Blood by Automated countOrdered By: Vish Nazario on 04-12-2023 Hematocrit (Bld) [Volume fraction] 44.3 % Normal 34.0-46.4 [facility] Comment on above: Performed By: #### C BC #### [address] Hemoglobin [Mass/volume] in BloodOrdered By: Vish Nazario on 04-12-2023 Hemoglobin (Bld) [Mass/Vol] 15.2 g/dL Normal 11.8-15.4 [facility] Comment on above: Performed By: #### C BC #### [address] Leukocytes [#/volume] correc henry for nucleated erythrocytes in Blood by Automated counOrdered By: Vish Nazario on 04-12-2023 WBC corrected for nucl RBC Auto (Bld) [#/Vol] 5.5 10*3/uL 3.8-11.6 [facility] Leukocytes [#/volume] in Blo od by Automated countOrdered By: Vish Nazario on 04-12-2023 WBC (Bld) [#/Vol] 5.5 10*3/uL Normal 3.8-11.6 [facility] Comment on above: Performed By: #### C BC #### [place] [address] [place] Lymphocytes [#/volume] in Bl ood by Automated countOrdered By: Vish Nazario on 04-12-2023 Lymphocytes (Bld) [#/Vol] 1.4 10*3/uL Normal 1.00-4.8 [facility] Comment on above: Performed By: #### C BC #### [place] [address] [place] Lymphocytes/100 leukocytes i n Blood by Automated countOrdered By: Vish Nazario on 04-12-2023 Lymphocytes/100 WBC (Bld) 25.9 % Normal . [facility] Comment on above: Performed By: #### C BC #### [address] MCH [Entitic mass] by Automa henry countOrdered By: Vish Nazario on 04-12-2023 MCH (RBC) [Entitic mass] 29.6 pg Normal 24.7-34.3 [facility] Comment on above: Performed By: #### C BC #### [address] MCHC Auto (RBC) [Mass/Vol]Or dered By: Vish Nazario on 04-12-2023 MCHC (RBC) [Mass/Vol] 34.3 g/dL 32.0-35.0 [facility] MCV [Entitic volume] by Auto mated countOrdered By: Vish Nazario on 04-12-2023 MCV (RBC) [Entitic vol] 86.4 fL Normal 80-100 [facility] Comment on above: Performed By: #### C BC #### [address] Neutrophils [#/volume] in Bl ood by Automated countOrdered By: Vish Nazario on 04-12-2023 Neutrophils (Bld) [#/Vol] 3.2 10*3/uL Normal 1.8-7.7 [facility] Comment on above: Performed By: #### C BC #### [address] No Panel InformationOrdered By: Vish Nazario on 04-12-2023 Estimated GFR (CKD-EPI) > 60.0 mL/Min [facility] Creatinine Clearance (Chem 51.50 [facility] Nucleated erythrocytes [Pres ence] in Blood by Automated countOrdered By: Vish Nazario on 04-12-2023 Nucleated RBC Auto Ql (Bld) 0.2 /100{WBC} 0-0.5 [facility] Platelet mean volume [Entiti c volume] in Blood by Automated countOrdered By: Vish Nazario on 04-12-2023 Platelet mean volume (Bld) [Entitic vol] 7.8 fL Normal 6.3-10.7 [facility] Comment on above: Performed By: #### C BC #### [address] Platelets [#/volume] in Bloo d by Automated countOrdered By: Vish Nazario on 04-12-2023 Platelets (Bld) [#/Vol] 185 10*3/uL Normal 150-450 [facility] Comment on above: Performed By: #### C BC #### [address] Potassium [Moles/volume] in Serum or PlasmaOrdered By: Vish Nazario on 04-12-2023 Potassium [Moles/Vol] 3.2 mmol/L Low 3.5-5.1 [facility] Comment on above: Performed By: #### B MP #### [address] Serum or plasma anion gap de terminationOrdered By: Vish Nazario on 04-12-2023 Anion gap [Moles/Vol] 9.8 mmol/L Normal 6.0-15.0 [facility] Comment on above: Performed By: #### B MP #### [address] Sodium [Moles/volume] in Ser um or PlasmaOrdered By: Vish Nazario on 04-12-2023 Sodium [Moles/Vol] 146 mmol/L High 136-145 [facility] Comment on above: Performed By: #### B MP #### [address] Urea nitrogen [Mass/volume] in Serum or PlasmaOrdered By: Vish Nazario on 04-12-2023 Urea nitrogen [Mass/Vol] 16 mg/dL Normal 7-25 [facility] Comment on above: Performed By: #### B MP #### [place] [address] [place] 36on 04-10-[address] Juarez's office called (vascular surgeon in [place]) and is requesting cardiac clearance on her. She is scheduled next week for carotid artery revascularization. Please advise. Thanks. Normal [facility] US carotid doppler BIon 03-15 US carotid doppler BI [facility] [place] [address] [place] [address] Ultrasound Report Signed Patient: Ozzie Gifford MR#: [id number] : 1950 Acct:[id number] Age/Sex: 72 / F ADM Date: 04/09/23 Loc: [facility] Room: Type: [facility] Attending Dr: Denver Juarez MD Ordering Provider: Denver Juarez MD Date of Service: 04/09/23 US/US carotid doppler BI: I65.23 Copies to: Denver Juarez MD CAROTID DUPLEX INDICATION: Follow-up after right carotid endarterectomy PROCEDURE: Color-flow duplex scanning is used to interrogate the extracranial carotid arterial system, as well as both vertebral arteries. The proximal right internal carotid artery shows a highest peak systolic velocity of 333 cm/s with an end-diastolic velocity of 130 cm/s . The mid internal carotid artery measures 76.8 cm/s peak systolic and 19.2 cm/s end diastolic. The distal segment measures 40 cm/s peak systolic with an end diastolic velocity of 6.19 cm/s . The velocities of the right common carotid artery are 138 cm/s peak systolic and 13 cm/s end-diastolic proximally and 85.5 cm/s peak systolic and 22.6 cm/s end diastolic distally. The peak systolic velocity ratio of the internal to the common carotid artery is 3.89. The right external carotid artery measures 96.8 cm/s peak systolic. The right vertebral artery is patent at 29.8 cm/s with antegrade flow. The proximal left internal carotid artery shows a highest peak systolic velocity of 84.5 cm/s with an end-diastolic velocity of 17.6 cm/s . The mid internal carotid artery measures 94.4 cm/s peak systolic and 28.5 cm/s end diastolic. The distal segment measures 114 cm/s peak systolic with an end diastolic velocity of 31.4 cm/s . The velocities of the left common carotid artery are 53 cm/s peak systolic and 12.9 cm/s end-diastolic proximally and 45.5 cm/s peak systolic and 14.1 cm/s end diastolic distally. The peak systolic velocity ratio of the internal to the common carotid artery is 2.51 . The left external carotid artery measures 85.6 cm/s peak systolic. The left vertebral artery is patent at 90.5 cm/s with antegrade flow. US/US carotid doppler BI IMPRESSION: Comparison made to the study of March 2022. In that study the patient had no hemodynamically significant stenosis after right carotid endarterectomy. On today's examination there has been a significant change with likely greater than 70% stenosis in the right internal carotid artery with the narrowing noted right at the origin of the internal carotid artery. No hemodynamically significant stenosis is seen in the left extracranial internal carotid artery. Both vertebral arteries are patent with antegrade flow. Impression dictated by: Husam Pierce M.D.04/09/2023 10:42 AM Dictation Location: [place] [address] Tech: Judy Shilpi Transcribed By: SHYANN 04/09/23 1042 Dictated By: Husam Pierce MD 04/09/23 1040 Signed By: 04/09/23 1042 Normal [facility] Office Visiton 03-14-2023 Follow-up visit [id number] Ozzie Gifford 1950 F Date Provider Department Center 03/14/2023 MEGHANN NEGRETE [facility] Family History Problem Relation Age of Onset Hypertension Mother Hypertension Father Heart attack Brother Family Status - Relation Status Age at Mother Father Brother Level of Service:[address] [place] OFFICE/OUTPATIENT ESTABLISHED LOW MDM 20 MIN Normal [facility] Formson 03-08-2023 Forms [id number] .[id number] Normal [facility] Physician Referralon 024 Physician Referral [id number] 1.00TIFF Normal [facility] Ambulatory Visit Summaryon 0 03-07-2023 Ambulatory Visit Summary OZZIE WALKER :1950 Visit Date:03/07/2023 Ambulatory Visit Instructions Your Diagnosis Incontinence Stroke Your Care Team Attending Physician - MITRA Quintero APRN, Carmen Rm Primary Care Physician - SHAIKH DAY MD Referring Physician - SHAIKH DAY MD This Is Your Medications List Misc Prescription (BACLOFEN 20MG TAB) amlodipine (amLODIPine 2.5 mg Tab) aspirin (aspirin 81 mg Chew Tab) clonazepam (ClonazePAM 0.5 mg Tab) ferrous sulfate (FeroSul 325 mg oral tablet) furosemide (furosemide 40 mg Tab) metoprolol (metoprolol 25 mg ER Tab) potassium chloride (Potassium Chloride (Oav-Pboi-Mxi M10) 10 mEq oral tablet, extended release) quetiapine (quetiapine 50 mg oral tablet) rosuvastatin (rosuvastatin 20 mg Tab) topiramate (topiramate 50 mg Tab) Procedures Performed Breast surgery, Gastric bypass, Hysterectomy, Knee replacement. Discharge Vitals Heart Rate (Peripheral) 80 Blood Pressure 118/80 Height 160 cm Height 63 in Weight 60 kg Weight 132 lb BMI 23.44 Medications What How Much When Instructions Unchanged amlodipine (amLODIPine 2.5 mg Tab) Unchanged aspirin (aspirin 81 mg Chew Tab) Chewed Every day Unchanged clonazepam (ClonazePAM 0.5 mg Tab) Unchanged ferrous sulfate (FeroSul 325 mg oral tablet) By Mouth 3 times a day Unchanged furosemide (furosemide 40 mg Tab) Unchanged metoprolol (metoprolol 25 mg ER Tab) By Mouth Every day Unchanged Misc Prescription (BACLOFEN 20MG TAB) 0 Unchanged potassium chloride (Potassium Chloride (Rnr-Zrqe-Eoy M10) 10 mEq oral tablet, extended release) Unchanged quetiapine (quetiapine 50 mg oral tablet) Unchanged rosuvastatin (rosuvastatin 20 mg Tab) Unchanged topiramate (topiramate 50 mg Tab) Allergies penicillin Problems Ongoing - Any problem that you are currently receiving treatment for. Headache Hypertension Stroke Patient Survey You may receive a survey via text or e-mail asking about your office visit. Please share your experience with us by completing your survey. We appreciate your feedback and thank you for choosing us for your care. [facility] Patient Educationon 03-07- 24 Patient Education Urology Urinary Incontinence Urinary incontinence refers to a condition in which a person is unable to control where and when to pass urine. A person with this condition will urinate involuntarily. This means that the person urinates when he or she does not mean to. What are the causes? This condition may be caused by: ? Medicines. ? Infections. ? Constipation. ? Overactive bladder muscles. ? Weak bladder muscles. ? Weak pelvic floor muscles. These muscles provide support for the bladder, intestine, and, in women, the uterus. ? Enlarged prostate in men. The prostate is a gland near the bladder. When it gets too big, it can pinch the urethra. With the urethra blocked, the bladder can weaken and lose the ability to empty properly. ? Surgery. ? Emotional factors, such as anxiety, stress, or post-traumatic stress disorder (PTSD). ? Spinal cord injury, nerve injury, or other neurological conditions. ? Pelvic organ prolapse. This happens in women when organs move out of place and into the vagina. This movement can prevent the bladder and urethra from working properly. What increases the risk? The following factors may make you more likely to develop this condition: ? Age. The older you are, the higher the risk. ? Obesity. ? Being physically inactive. ? and childbirth. ? Menopause. ? Diseases that affect the nerves or spinal cord. ? Long-term, or chronic, coughing. This can increase pressure on the bladder and pelvic floor muscles. What are the signs or symptoms? Symptoms may vary depending on the type of urinary incontinence you have. They include: ? A sudden urge to urinate, and passing urine involuntarily before you can get to a bathroom (urge incontinence). ? Suddenly passing urine when doing activities that force urine to pass, such as coughing, laughing, exercising, or sneezing (stress incontinence). ? Needing to urinate often but urinating only a small amount, or constantly dribbling urine (overflow incontinence). ? Urinating because you cannot get to the bathroom in time due to a physical disability, such as arthritis or injury, or due to a communication or thinking problem, such as Alzheimer's disease (functional incontinence). How is this diagnosed? This condition may be diagnosed based on: ? Your medical history. ? A physical exam. ? Tests, such as: ? Urine tests. ? X-rays of your kidney and bladder. ? Ultrasound. ? CT scan. ? Cystoscopy. In this procedure, a health care provider inserts a tube with a light and camera (cystoscope) through the urethra and into the bladder to check for problems. ? Urodynamic testing. These tests assess how well the bladder, urethra, and sphincter can store and release urine. There are different types of urodynamic tests, and they vary depending on what the test is measuring. To help diagnose your condition, your health care provider may recommend that you keep a log of when you urinate and how much you urinate. How is this treated? Treatment for this condition depends on the type of incontinence that you have and its cause. Treatment may include: ? Lifestyle changes, such as: ? Quitting smoking. ? Maintaining a healthy weight. ? Staying active. Try to get 150 minutes of moderate-intensity exercise every week. Ask your health care provider which activities are safe for you. ? Eating a healthy diet. ? Avoid high-fat foods, like fried foods. ? Avoid refined carbohydrates like white bread and white rice. ? Limit how much alcohol and caffeine you drink. ? Increase your fiber intake. Healthy sources of fiber include beans, whole grains, and fresh fruits and vegetables. ? Behavioral changes, such as: ? Pelvic floor muscle exercises. ? Bladder training, such as lengthening the amount of time between bathroom breaks, or using the bathroom at regular intervals. ? Using techniques to suppress bladder urges. This can include distraction techniques or controlled breathing exercises. ? Medicines, such as: ? Medicines to relax the bladder muscles and prevent bladder spasms. ? Medicines to help slow or prevent the growth of a man's prostate. ? Botox injections. These can help relax the bladder muscles. ? Treatments, such as: ? Using pulses of electricity to help change bladder reflexes (electrical nerve stimulation). ? For women, using a medical biller/coder to prevent urine leaks. This is a small, tampon-like, disposable device that is inserted into the urethra. ? Injecting collagen or carbon beads (bulking agents) into the urinary sphincter. These can help thicken tissue and close the bladder opening. ? Surgery. Follow these instructions at home: Lifestyle ? Limit alcohol and caffeine. These can fill your bladder quickly and irritate it. ? Keep yourself clean to help prevent odors and skin damage. Ask your health care provider about special skin creams and cleansers that can protect the skin from urine. ? (more content not included)... 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 female new patient here for overflow incontinence of urine. Referred by Shaikh Barb. BUN 20.0 & CRE 0.74 done on 02/13/23. UA done on 02/13/23 was negative for blood and infection. CMP done 03/01/23 BUN(20.) CREAT(0.81) Taking Macrobid BID 3-4 pills left PVR 43 Dysuria: _yes off and on started for quit awhile she could not pin point when it started Incomplete bladder emptying: doesn't think so Hematuria: denies visible blood Frequency: says 3 x a day, then says every hr later in visit Urgency: yes Nocturia: 2 Depends wore nightly 1-2 x nightly Stream: _denies hesitation, normal stream Leaking: _yes Post void dripping: occasionally Wearing pads/ Depends: wears 2 Depends changes 8-10 x daily Urge incontinence: _yes Stress incontinence: _unknown Incontinence without Sensory Awareness: _denies Abdominal pain: _denies Flank pain: _denies Sexual complaints: _denies History of Present Illness I have reviewed and verified the staff HPI to be accurate for this encounter. Review of Systems PHQ Score Initial Depression Screen Score: 0 SCORE Physical Exam Vitals & Measurements HR: 80(Peripheral) BP: 118/80 HT: 63 in HT: 160 cm WT: 60 kg WT: 132 lb BMI: 23.44 General: Elderly adult female in no acute distress. Pt has a hard time answering questions directly. Seems to be a poor historian. Pt states she walked here from [place] in the rain. Genitourinary: Flank Pain: none. Bladder: nonpalpable. Assessment/Plan 1. Urinary incontinence without sensory awareness (N39.42: Incontinence without sensory awareness) PVR 43 cc Feels that she typically empties well. Pt reports constant leakage of urine. Not always with urge to void. She changes depends numerous times throughout the day. At one point during visit she says she only sits on toilet 3x/day. At another point, she says she uses the bathroom every hr. Discussed timed voids, voiding maneuvers. Pt typically drinks coffee and tea throughout the day. Discussed how bladder irritants can contribute to urinary sxs. Reports soft stool multiple times/day. Discussed use of anticholinergic medication. Discussed most common SEs, call office if experiencing anything intolerable. Start trospium 60 mg ER QD. Rx sent to [facility]. -f/u 6-8 weeks for med recheck and PVR. Ordered: trospium, 60 mg = 1 cap(s), Oral, qAM, X 90 day(s), # 90 cap(s), Refills(s) 0, Pharmacy: [facility] #[id number], 160, cm, 03/07/23 10:58:00 EST, Height/Length Dosing, 60, kg, 03/07/23 10:58:00 EST, Weight Dosing 2. UTI (urinary tract infection) (N39.0: Urinary tract infection, site not specified) recently dx by PCP [facility] 02/23/23 - 100 k E. coli, treated w/ macrobid. However, pt did have short inpatient stay during course (UA negative at [facility]) and pt states she has a few pills of macrobid left that she is taking. Record of [facility] 02/16/23 - 100k Group B Strep Levaquin 500 mg QD x 7 days sent by PCP, although pt does not recall UTI or rx at that time. UA today w/o blood or infection. Denies any episode of gross hematuria. -Increase fluid intake, avoid bladder irritants. -Reinforced hygiene. -Finish abx course. 3. White matter disease, unspecified (R90.82: White matter disease, unspecified) [facility] inpatient stay 03/01/23 - for head stuff per patient. CT brain w/o con 03/01/23 - stable atrophy and white matter disease Pt not able to answer questions directly in visit today. States she walked to [employer] [place] from [place]. Poor historian. Orders: [id number] Measure Post Void residual urine and/or bladder capacity by US- non-imaging Urnls Dip Stick Auto w/o Microscopy POC 76875 Follow-up With When Contact Information Orzech CÉSAR, DISPATCHER TUGBOAT-C, Carmen Rm, FAM, URL In 8 weeks Additional Instructions: w/ pvr Patient Education Urinary Incontinence Problem List/Past Medical History Ongoing Headache Hypertension Stroke Historical No qualifying data Procedure/Surgical History Breast surgery, Gastric bypass, Hysterectomy, Knee replacement. Medications amLODIPine 2.5 mg Tab aspirin 81 mg Chew Tab, Chewed, Daily BACLOFEN 20MG TAB, 0 ClonazePAM 0.5 mg Tab FeroSul 325 mg oral tablet, Oral, TID furosemide 40 mg Tab metoprolol 25 mg ER Tab, Oral, Daily Potassium Chloride (Rzr-Ctny-Gtd M10) 10 mEq oral tablet, extended release quetiapine 50 mg oral tablet rosuvastatin 20 mg Tab topiramate 50 mg Tab trospium 60 mg oral capsule, extended release, 60 mg= 1 cap(s), Oral, qAM Allergies penicillin Social History Tobacco Never (less than 100 in lifetime) Tobacco Use:. Cigarettes, 03/07/2023 Family History Primary malignant neoplasm of bone: Father. Primary malignant neoplasm of brain: Mother. Primary malignant neoplasm of female breast: Mother. Lab Results Ambulatory Point of Care Results Bilirubin Urine Dipstick: Negative (03/07/23 10:47:00) Blood Urine Di (more content not included)... Normal [facility] Comment on above: Result Comment: Elec tronically Signed By: MITRA Quintero APRN, Carmen Rm\.br\Date and Time Signed: 03/07/23 14:30 EST 36on 02-27-2023 36 PER PATRICIA CAN GO DE K TO 20 MG Normal [facility] 37on 02-13-2023 37 Decrease amount of fluids your drinking to about 1.5 liters/day Take lasix 40 mg daily and increase potassium to 20 meq daily Have labs drawn in 1 week Call for appointment with neuro Normal [facility] Office Visiton 02-13-2023 Follow-up visit [id number] Ozzie Gifford 1950 F Date Provider Department Center 02/13/2023 [facility] Family History Problem Relation Age of Onset Hypertension Mother Hypertension Father Heart attack Brother Family Status - Relation Status Age at Mother Father Brother Level of Service:80528 [place] OFFICE/OUTPATIENT ESTABLISHED MOD MDM 30 MIN Normal [facility] Urinalysis - AUTOMATEDon Appearance (U) cloudy [employer] Other Bilirubin Ql (U) Negative [employer] Other Color (U) yellow [employer] Other Glucose Ql (U) Negative [employer] Other Hemoglobin Ql (U) Negative [employer] Other Ketones Ql (U) Negative [employer] Other Leukocyte esterase Test strip Ql (U) Negative [employer] Other Nitrite Ql (U) Negative [employer] Other pH (U) 6.0 [pH] [employer] Other Protein Ql (U) Negative [employer] Other Specific gravity (U) [Rel density] 1.030 [employer] Other Urobilinogen (U) [Mass/Vol] 1.0 mg/dL [employer] Other Urinalysis - AUTOMATED No rt [employer] Other ECHOCARDIO M/2D COMPLETEon 0 02-21-2022 ECHOCARDIO M/2D COMPLETE Patient: BALTAOZZIE Exam Date: 02/21/2022 : 1950 Gender:F Ordering : MEGHANN FONSECA Admission #: [id number] Family : SHAIKH BeDeonte DAY . Order #: [id number] CLICK HERE TO VIEW EXAM ECHOCARDIOGRAM REPORT [...] Doty M.D. on 02/22/2022 at 13:00 Normal [facility] VC COMP CONSULTATIONon 02-20 VC COMP CONSULTATION Patient: OZZIE GIFFORD Exam Date: 02/20/2022 : 1950 Gender:F Ordering : SHAIKH Korina DAY . 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 The patient [...] referred by her primary care physician, Dr. Poesy. Nursing notes were reviewed After history and [...] Natacha Walsh MD on 02/20/2022 at 11:35 [facility] VC VENOUS REFLUX IAN LMTon 0 02-20-2022 VC VENOUS REFLUX IAN LMT Patient: OZZIE GIFFORD Exam Date: 02/20/2022 : 1950 Gender:F Ordering : BeDeonte DAY . Admission #: [id number] Family : DR NATACHA WALSH M.D. 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 Mid/med [...] Walsh MD on 02/20/2022 at 10:30 Normal [facility] US JANETTE DOP LEG LTon 02-01-20 [...] INDRA LOZADA Date: 2022-01-31 18:39 Normal [facility] BNPon 01-22-2022 Natriuretic peptide B (Bld) [Mass/Vol] 552.0 pg/mL Normal <=900.0 [facility] Comment on above: Performed By: #### E RUR #### [facility] [address] [place] [address] Dr. Grzegorz Wang CBC AUTO DIFFon 01-22-2022 BASO # 0.1 103/ul Normal 0.0-0.1 [facility] Comment on above: Performed By: #### C BC #### [facility] [address] [place] [address] Dr. Grzegorz Wang Basophils/100 WBC (Bld) 0.9 % Normal 0.2-2.0 [facility] Comment on above: Performed By: #### C BC #### [facility] [address] [place] [address] Dr. Grzegorz Wang EO # 0.3 103/ul Normal 0.0-0.7 [facility] Comment on above: Performed By: #### C BC #### [facility] [address] [place] [address] Dr. Grzegorz Wang Eosinophils/100 WBC (Bld) 5.5 % Normal 0.9-7.0 [facility] Comment on above: Performed By: #### C BC #### [facility] [address] [place] [address] Dr. Grzgeorz Wang Erythrocyte distribution width (RBC) [Ratio] 13.7 % Normal 11.0-15.0 [facility] Comment on above: Performed By: #### C BC #### [facility] [address] [place] [address] Dr. Grzegorz Wang Hematocrit (Bld) [Volume fraction] 41.1 % Normal 36.0-48.0 [facility] Comment on above: Performed By: #### C BC #### [facility] [address] [place] [address] Dr. Grzegorz Wang Hemoglobin (Bld) [Mass/Vol] 13.4 g/dL Normal 12.0-16.0 [facility] Comment on above: Performed By: #### C BC #### [facility] [address] [place] [address] Dr. Grzegorz Wang IG # 0.01 10e3/ul Normal 0.00-0.03 [facility] Comment on above: Performed By: #### C BC #### [facility] [address] [place] [address] Dr. Grzegorz Wang IG % 0.2 % Normal 0.0-0.5 [facility] Comment on above: Performed By: #### C BC #### [facility] [address] [place] [address] Dr. Grzegorz Wang LYMPH # 1.8 103/ul Normal 1.2-3.8 [facility] Comment on above: Performed By: #### C BC #### [facility] [address] [place] [address] Dr. Grzegorz Wang Lymphocytes/100 WBC (Bld) 29.9 % Normal 20.5-60.0 [facility] Comment on above: Performed By: #### C BC #### [facility] [address] [place] [address] Dr. Grzegorz Wang MANUAL DIFF REQ NO Normal [facility] Comment on above: Performed By: #### C BC #### [facility] [address] [place] [address] Dr. Grzegorz Wang MCH (RBC) [Entitic mass] 28.2 pg Normal 26.7-34.0 [facility] Comment on above: Performed By: #### C BC #### [facility] [address] [place] [address] Dr. Grzegorz Wang MCHC (RBC) [Mass/Vol] 32.6 g/dL Normal 29.9-35.2 [facility] Comment on above: Performed By: #### C BC #### [facility] [address] [place] [address] Dr. Grzegorz Wang MCV (RBC) [Entitic vol] 86.5 fL Normal 81.0-99.0 [facility] Comment on above: Performed By: #### C BC #### [facility] [address] [place] [address] Dr. Grzegorz Wang MONO # 0.7 103/ul Normal 0.3-0.8 [facility] Comment on above: Performed By: #### C BC #### [facility] [address] [place] [address] Dr. Grzegorz Wang Monocytes/100 WBC (Bld) 11.1 % Normal 1.7-12.0 [facility] Comment on above: Performed By: #### C BC #### [facility] [address] [place] [address] Dr. Grzegorz Wang NEUT # 3.1 103/ul Normal 1.4-6.5 [facility] Comment on above: Performed By: #### C BC #### [facility] [address] [place] [address] Dr. Grzegorz Wang Neutrophils/100 WBC (Bld) 52.4 % Normal 43.0-75.0 [facility] Comment on above: Performed By: #### C BC #### [facility] [address] [place] [address] Dr. Grzegorz Wang Platelet mean volume (Bld) [Entitic vol] 9.6 fL Normal 9.5-13.5 [facility] Comment on above: Performed By: #### C BC #### [facility] [address] [place] [address] Dr. Grzegorz Wang PLT 162 103/ul Normal 150-450 [facility] Comment on above: Performed By: #### C BC #### [facility] [address] [place] [address] Dr. Grzegorz Wang RBC 4.75 106/ul Normal 4.20-5.40 [facility] Comment on above: Performed By: #### C BC #### [facility] [address] [place] [address] Dr. Grzegorz Wang WBC 5.9 103/ul Normal 4.0-11.0 [facility] Comment on above: Performed By: #### C BC #### [facility] [address] [place] [address] Dr. Grzegorz Wang PROF 14(COMP METB)on 022 Albumin [Mass/Vol] 3.4 g/dL Normal 3.4-5.0 [facility] Comment on above: Performed By: #### E RUR #### [facility] [address] [place] [address] Dr. Grzegorz Wang Albumin/Globulin [Mass ratio] 1.0 {ratio} Normal [facility] Comment on above: Performed By: #### E RUR #### [facility] [address] [place] [address] Dr. Grzegorz Wang ALP [Catalytic activity/Vol] 102 U/L Normal 46-116 [facility] Comment on above: Performed By: #### E RUR #### [facility] [address] [address] [address] Grzegorz Wang ALT [Catalytic activity/Vol] 16 U/L Normal 14-59 [facility] Comment on above: Performed By: #### E RUR #### [facility] [address] [address] [address] Grzegorz Wang Anion gap [Moles/Vol] 10.6 mmol/L Normal [facility] Comment on above: Performed By: #### E RUR #### [facility] [address] [address] [address] Grzegorz Wang AST [Catalytic activity/Vol] 18 U/L Normal 15-37 [facility] Comment on above: Performed By: #### E RUR #### [facility] [address] [place] [address] Dr. Grzegorz Wang Bilirubin [Mass/Vol] 0.4 mg/dL Normal 0.2-1.0 [facility] Comment on above: Performed By: #### E RUR #### [facility] [address] [address] [address] Grzegorz Wang Calcium [Mass/Vol] 9.0 mg/dL Normal 8.5-10.1 [facility] Comment on above: Performed By: #### E RUR #### [facility] [address] [address] [address] Grzegorz Wang Chloride [Moles/Vol] 103 mmol/L Normal 98-107 [facility] Comment on above: Performed By: #### E RUR #### [facility] [address] [address] [address] Grzegorz Wang CO2 [Moles/Vol] 31.4 mmol/L Normal 21.0-32.0 [facility] Comment on above: Performed By: #### E RUR #### [facility] [address] [address] [address] Grzegorz Wang Creatinine [Mass/Vol] 0.80 mg/dL Normal 0.55-1.02 [facility] Comment on above: Performed By: #### E RUR #### [facility] [address] [address] [address] Grzegorz Wang EGFR-AF GAMBIAN >60 Normal >=60 [facility] Comment on above: Performed By: #### E RUR #### [facility] [address] [address] [address] Grzegorz Wang EGFR-NON AF GAMBIAN >60 Normal >=60 [facility] Comment on above: Performed By: #### E RUR #### [facility] [address] [address] [address] Grzegorz Wang Globulin (S) [Mass/Vol] 3.4 g/dL Normal T [facility] Comment on above: Performed By: #### E RUR #### [facility] [address] [place] [address] Dr. Grzegorz Wang Glucose [Mass/Vol] 78 mg/dL Normal 74-106 [facility] Comment on above: Performed By: #### E RUR #### [facility] [address] [place] [address] Dr. Grzegorz Wang Potassium [Moles/Vol] 3.0 mmol/L Critically low 3.5-5.1 [facility] Comment on above: Performed By: #### E RUR #### [facility] [address] [place] [address] Dr. Grzegorz Wang Protein [Mass/Vol] 6.8 g/dL Normal 6.4-8.2 [facility] Comment on above: Performed By: #### E RUR #### [facility] [address] [address] [address] Grzegorz Wang Sodium [Moles/Vol] 142 mmol/L Normal 136-145 [facility] Comment on above: Performed By: #### E RUR #### [facility] [address] [address] [address] Grzegorz Wang Urea nitrogen [Mass/Vol] 14.0 mg/dL Normal 7.0-18.0 [facility] Comment on above: Performed By: #### E RUR #### [facility] [address] [address] [address] Grzegorz Wang Urea nitrogen/Creatinine [Mass ratio] 17.5 mg/mg Normal [facility] Comment on above: Performed By: #### E RUR #### [facility] [address] [address] [address] Grzegorz Wang US JANETTE DOP LEG [...] by: MIRI BALTAZAR Date: 2022-01-22 16:38 Normal [facility] LIPID PROFILEon 01-18-2022 CHOL-HDL RATIO NORM SEE BELOW Normal [place] Comment on above: Result Comment: 3.3 - 4.4 LOW RISK 4.4 - 7.1 AVERAGE RISK 7.1 - 11.0 MODERATE RISK >11.0 HIGH RISK Performed By: #### A PHIL OWEN #### [facility] [address] [address] [address] Grzegorz Wang Cholesterol [Mass/Vol] 125 mg/dL Normal <=200 [facility] Comment on above: Performed By: #### A BRAYDEN LIPA #### [facility] [address] [address] [address] Grzegorz Wang Cholesterol in HDL [Mass/Vol] 69 mg/dL Critically high 40-60 [facility] Comment on above: Performed By: #### A BRAYDEN LIPA #### [facility] [address] [address] [address] Grzegorz Wang Cholesterol in LDL [Mass/Vol] 40.0 mg/dL Normal [facility] Comment on above: Performed By: #### A BRAYDEN LIPA #### [facility] [address] [address] [address] Grzegorz Wang Cholesterol.total/Claudia sterol in HDL [Mass ratio] 1.8 {ratio} Normal [facility] Comment on above: Performed By: #### A BRAYDEN LIPA #### [facility] [address] [address] [address] Grzegorz Wang HDL NORMAL > or = 60 mg/dl - LO W CARDIOVASCULAR RISK <40 mg/dl - HIGH CARDIOVASCULAR RISK Normal [facility] Comment on above: Performed By: #### A BRAYDEN LIPA #### [facility] [address] [address] [address] Grzegorz Wang LDL CALC NORMAL SEE BELOW Normal [facility] Comment on above: Result Comment: <100 mg/dl OPTIMAL 100 - 129 mg/dl NEAR OR ABOVE OPTIMAL 130 - 159 mg/dl BORDERLINE HIGH 160 - 189 mg/dl HIGH >190 mg/dl VERY HIGH Performed By: #### A BRAYDEN LIPA #### [facility] [address] [address] [address] Grzegorz Wang Triglyceride [Mass/Vol] 80 mg/dL Normal <=150 [facility] Comment on above: Performed By: #### A BRAYDEN LIPA #### [facility] [address] [address] [address] Grzegorz Wang VLDL CALC 16.0 mg/dL Normal [facility] Comment on above: Performed By: #### A BRAYDEN LIPA #### [facility] [address] [address] [address] Grzegorz Wang US PELVISon 01-18-2022 US [...] MITZI CHAU Date: 2022-01-18 10:31 Normal [facility] XR CHEST 2 Von 01-03-2022 XR [...] process. Stable chest. Electronically authenticated by: MITZI HCAU Date: 2022-01-03 10:48 Normal [facility] US PELVISon 12-07-2021 US PELVIS EXAMINATION: US [...] by: MITZI CHAU Date: 2021-12-07 17:20 Normal [facility] PROF CHEM 8 (BAS METB)on Anion gap [Moles/Vol] 13.0 mmol/L Normal e [facility] Comment on above: Performed By: #### A MY, LIPA #### [facility] [address] [place] [address] Dr. Grzegorz Wang Calcium [Mass/Vol] 8.9 mg/dL Normal 8.5-10.1 [facility] Comment on above: Performed By: #### A BRAYDEN LIPA #### [facility] [address] [address] [address] Grzegorz Wang Chloride [Moles/Vol] 105 mmol/L Normal 98-107 [facility] Comment on above: Performed By: #### A MY LIPA #### [facility] [address] [address] [address] Grzegorz Wang CO2 [Moles/Vol] 29.0 mmol/L Normal 21.0-32.0 [facility] Comment on above: Performed By: #### A BRAYDEN LIPA #### [facility] [address] [place] [address] Dr. Grzegorz Wang Creatinine [Mass/Vol] 0.79 mg/dL Normal 0.55-1.02 [facility] Comment on above: Performed By: #### A BRAYDEN LIPA #### [facility] [address] [place] [address] Dr. Grzegorz Wang EGFR-AF GAMBIAN >60 Normal >=60 [facility] Comment on above: Performed By: #### A BRAYDEN LIPA #### [facility] [address] [place] [address] Dr. Grzegorz Wang EGFR-NON AF GAMBIAN >60 Normal >=60 [facility] Comment on above: Performed By: #### A BRAYDEN LIPA #### [facility] [address] [place] [address] Dr. Grzegorz Wang Glucose [Mass/Vol] 79 mg/dL Normal 74-106 [facility] Comment on above: Performed By: #### A BRAYDEN, LIPA #### [facility] [address] [place] [address] Dr. Grzegorz Wang Potassium [Moles/Vol] 3.0 mmol/L Critically low 3.5-5.1 [facility] Comment on above: Performed By: #### A MY, LIPA #### [facility] [address] [place] [address] Dr. Grzegorz Wang Sodium [Moles/Vol] 144 mmol/L Normal 136-145 [facility] Comment on above: Performed By: #### A BRAYDEN LIPLuna #### [facility] [address] [place] [address] Dr. Grzegorz Wang Urea nitrogen [Mass/Vol] 12.0 mg/dL Normal 7.0-18.0 [facility] Comment on above: Performed By: #### A BRAYDEN LIPA #### [facility] [address] [place] [address] Dr. Grzegorz Wang Urea nitrogen/Creatinine [Mass ratio] 15.2 mg/mg Normal [facility] Comment on above: Performed By: #### A BRAYDEN LIPA #### [facility] [address] [place] [address] Dr. Grzegorz Wang VITAMIN B12on 11-27-2021 Cobalamin (Vitamin B12) [Mass/Vol] 5661.0 pg/mL Critically high 193.0-986.0 [facility] Comment on above: Performed By: #### E RUR #### [facility] [address] [place] [address] Dr. Grzegorz Wang BNPon 11-26-2021 Natriuretic peptide B (Bld) [Mass/Vol] 1245.0 pg/mL Critically high <=900.0 [facility] Comment on above: Performed By: #### A BRAYDEN LIPA #### [facility] [address] [place] [address] Dr. Grzegorz Wang Bacterial blood cultureOrder ed By: Ashleigh Rashid on 11-26-2021 Bacteria identified Cx Nom (Bld) NO GROWTH 5 DAYS [facility] CARDIAC BAMBI ADMITon 022 CK [Catalytic activity/Vol] 75 U/L Normal 26-192 [facility] Comment on above: Performed By: #### A BRAYDEN LIPA #### [facility] [address] [place] [address] Dr. Grzegorz Wang CK.MB [Mass/Vol] 1.58 ng/mL Normal <=3.60 [facility] Comment on above: Performed By: #### A BRAYDEN LIPA #### [facility] [address] [address] [address] Grzegorz Wang HSTROP 13.3 pg/mL Normal 4.0-51.3 [facility] Comment on above: Result Comment: CUT- OFF POINTS HAVE BEEN ESTABLISHED BASED ON THE FOURTH UNIVERSAL DEFINITIONS OF MYOCARDIAL INFARCTION. THE UPPER REFERENCE LIMIT (URL) OF TROPONIN, DEFINED THE 99TH PERCENTILE OF cTnI DISTRIBUTION IN A REFERENCE POPULATION, HAS BEEN CONFIRMED THE DECISION THRESHOLD FOR [place] DIAGNOSIS. Performed By: #### A BRAYDEN LIPA #### [facility] [address] [place] [address] Dr. Grzegorz Wang MITZI 85 ng/mL Critically high 9-82 [facility] Comment on above: Performed By: #### A LUCHO OWENA #### [facility] [address] [place] [address] Dr. Grzegorz Wang CBC AUTO DIFFon 11-26-2021 BASO # 0.0 103/ul Normal 0.0-0.1 [facility] Comment on above: Performed By: #### A BRAYDEN LIPA #### [facility] [address] [place] [address] Dr. Grzegorz Wang Basophils/100 WBC (Bld) 0.5 % Normal 0.2-2.0 [facility] Comment on above: Performed By: #### A BRAYDEN LIPA #### [facility] [address] [place] [address] Dr. Grzegorz Wang EO # 0.1 103/ul Normal 0.0-0.7 [facility] Comment on above: Performed By: #### A BRAYDEN LIPA #### [facility] [address] [place] [address] Dr. Grzegorz Wang Eosinophils/100 WBC (Bld) 1.3 % Normal 0.9-7.0 [facility] Comment on above: Performed By: #### A BRAYDEN LIPA #### [facility] [address] [place] [address] Dr. Grzegorz Wang Erythrocyte distribution width (RBC) [Ratio] 16.8 % Critically high 11.0-15.0 [facility] Comment on above: Performed By: #### A BRAYDEN LIPA #### [facility] [address] [place] [address] Dr. Grzegorz Wang Hematocrit (Bld) [Volume fraction] 36.6 % Normal 36.0-48.0 [facility] Comment on above: Performed By: #### A MY, LIPA #### [facility] [address] [place] [address] Dr. Grzegorz Wang Hemoglobin (Bld) [Mass/Vol] 12.1 g/dL Normal 12.0-16.0 [facility] Comment on above: Performed By: #### A MY, LIPA #### [facility] [facility] [address] [place] [address] Dr. Grzegorz Wang IG # 0.03 10e3/ul Normal 0.00-0.03 [facility] Comment on above: Performed By: #### A BRAYDEN, LIPA #### [facility] [address] [place] [address] Dr. Grzegorz Wang IG % 0.5 % Normal 0.0-0.5 [facility] Comment on above: Performed By: #### A BRAYDEN, LIPA #### [facility] [address] [place] [address] Dr. Grzegorz Wang LYMPH # 0.9 103/ul Critically low 1.2-3.8 [facility] Comment on above: Performed By: #### A BRAYDEN, LIPA #### [facility] [address] [place] [address] Dr. Grzegorz Wang Lymphocytes/100 WBC (Bld) 15.4 % Critically low 20.5-60.0 [facility] Comment on above: Performed By: #### A BRAYDEN, LIPA #### [facility] [address] [place] [address] Dr. Grzegorz Wang MANUAL DIFF REQ NO Normal [facility] Comment on above: Performed By: #### A BRAYDEN, LIPA #### [facility] [address] [place] [address] Dr. Grzegorz Wang MCH (RBC) [Entitic mass] 27.7 pg Normal 26.7-34.0 [facility] Comment on above: Performed By: #### A MY LIPA #### [facility] [address] [place] [address] Dr. Grzegorz Wang MCHC (RBC) [Mass/Vol] 33.1 g/dL Normal 29.9-35.2 [facility] Comment on above: Performed By: #### A MY, LIPA #### [facility] [address] [place] [address] Dr. Grzegorz Wang MCV (RBC) [Entitic vol] 83.8 fL Normal 81.0-99.0 [facility] Comment on above: Performed By: #### A BRAYDEN LIPA #### [facility] [address] [place] [address] Dr. Grzegorz Wang MONO # 0.5 103/ul Normal 0.3-0.8 [facility] Comment on above: Performed By: #### A BRAYDEN LIPA #### [facility] [address] [place] [address] Dr. Grzegorz Wang Monocytes/100 WBC (Bld) 7.8 % Normal 1.7-12.0 [facility] Comment on above: Performed By: #### A BRAYDEN LIPA #### [facility] [address] [place] [address] Dr. Grzegorz Wang NEUT # 4.5 103/ul Normal 1.4-6.5 [facility] Comment on above: Performed By: #### A BRAYDEN LIPA #### [facility] [address] [place] [address] Dr. Grzegorz Wang Neutrophils/100 WBC (Bld) 74.5 % Normal 43.0-75.0 [facility] Comment on above: Performed By: #### A BRAYDEN LIPA #### [facility] [address] [place] [address] Dr. Grzegorz Wang Platelet mean volume (Bld) [Entitic vol] 11.2 fL Normal 9.5-13.5 [facility] Comment on above: Performed By: #### A BRAYDEN LIPA #### [facility] [address] [place] [address] Dr. Grzegorz Wang PLT 187 103/ul Normal 150-450 [facility] Comment on above: Performed By: #### A LUCHO OWENA #### [facility] [address] [address] [address] Grzegorz Wang RBC 4.37 106/ul Normal 4.20-5.40 [facility] Comment on above: Performed By: #### A LUCHO OWENA #### [facility] [address] [address] [address] Grzegorz Wang WBC 6.0 103/ul Normal 4.0-11.0 [facility] Comment on above: Performed By: #### A LUCHO OWENA #### [facility] [address] [address] ABD/PELVIS WO CONon [...] by: MANDI MANRIQUEZ Date: 2021-11-26 15:08 Normal [facility] CT CSPINE WO CONon 2 CT [...] SHANIA WASHINGTON Date: 2021-11-26 14:44 Normal [facility] ER URINE PROFILEon 2 Bilirubin Ql (U) Negative Normal NEGATIVE [facility] Comment on above: Performed By: #### C BC #### [facility] [address] [place] [address] Dr. Grzegorz Wang Clarity (U) CLEAR Normal CLEAR [facility] Comment on above: Performed By: #### C BC #### [facility] [address] [place] [address] Dr. Grzegorz Wang Color (U) LT. YELLOW Normal YELLOW [facility] Comment on above: Performed By: #### C BC #### [facility] [address] [place] [address] Dr. Grzegorz Wang ERUAHAudra A micrscopic examination will be performed if indicated. Normal [facility] Comment on above: Performed By: #### C BC #### [facility] [address] [place] [address] Dr. Grzegorz Wang Glucose Ql (U) Negative Normal NEGATIVE [facility] Comment on above: Performed By: #### C BC #### [facility] [address] [place] [address] Dr. Grzegorz Wang Hemoglobin Ql (U) TRACE-INTACT Abnormal NEGATIVE [place] Comment on above: Performed By: #### C BC #### [facility] [address] [place] [address] Dr. Grzegorz Wang Ketones Ql (U) Negative Normal NEGATIVE [facility] Comment on above: Performed By: #### C BC #### [facility] [address] [place] [address] Dr. Grzegorz Wang LEUKOCYTES Negative Normal NEGATIVE [facility] Comment on above: Performed By: #### C BC #### [facility] [address] [place] [address] Dr. Grzegorz Wang Nitrite Ql (U) Negative Normal NEGATIVE [facility] Comment on above: Performed By: #### C BC #### [facility] [address] [place] [address] Dr. Grzegorz Wang pH (U) 5.5 [pH] Normal 5-9 [facility] Comment on above: Performed By: #### C BC #### [facility] [address] [place] [address] Dr. Grzegorz Wang SPEC GRAVITY <=1.005 Abnormal 1.005-<=1.0 25 [facility] Comment on above: Performed By: #### C BC #### [facility] [address] [place] [address] Dr. Grzegorz Wang UA PROTEIN Negative Normal NEGATIVE/ TRACE [facility] Comment on above: Performed By: #### C BC #### [facility] [address] [place] [address] Dr. Grzegorz Wang UR MICRO IND INDICATED Normal [facility] Comment on above: Performed By: #### C BC #### [facility] [address] [place] [address] Dr. Grzegorz Wang Urobilinogen Qn (U) 0.2 {Lidya'U}/dL Normal 0.2 - 1. 0 [facility] Comment on above: Performed By: #### C BC #### [facility] [address] [place] [address] Dr. Grzegorz Wang PROF 14(COMP METB)on 022 Albumin [Mass/Vol] 3.5 g/dL Normal 3.4-5.0 [facility] Comment on above: Performed By: #### A BRAYDEN LIPLuna #### [facility] [address] [place] [address] Dr. Grzegorz Wang Albumin/Globulin [Mass ratio] 1.1 {ratio} Normal [facility] Comment on above: Performed By: #### A PHIL OWEN #### [facility] [address] [place] [address] Dr. Grzegorz Wang ALP [Catalytic activity/Vol] 89 U/L Normal 46-116 [facility] Comment on above: Performed By: #### A MY, LIPA #### [facility] [address] [address] [address] Grzegorz Wang ALT [Catalytic activity/Vol] 22 U/L Normal 14-59 [facility] Comment on above: Performed By: #### A MY, LIPA #### [facility] [address] [address] [address] Grzegorz Wang Anion gap [Moles/Vol] 10.2 mmol/L Normal [facility] Comment on above: Performed By: #### A MY, LIPA #### [facility] [address] [address] [address] Grzegorz Wang AST [Catalytic activity/Vol] 18 U/L Normal 15-37 [facility] Comment on above: Performed By: #### A BRAYDEN, LIPA #### [facility] [address] [place] [address] Dr. Grzegorz Wang Bilirubin [Mass/Vol] 0.6 mg/dL Normal 0.2-1.0 [facility] Comment on above: Performed By: #### A BRAYDEN, LIPA #### [facility] [address] [address] [address] Grzegorz Wang Calcium [Mass/Vol] 9.1 mg/dL Normal 8.5-10.1 [facility] Comment on above: Performed By: #### A MY, LIPA #### [facility] [address] [place] [address] Dr. Grzegorz Wang Chloride [Moles/Vol] 106 mmol/L Normal 98-107 [facility] Comment on above: Performed By: #### A MY, LIPA #### [facility] [address] [address] [address] Grzegorz Wang CO2 [Moles/Vol] 29.5 mmol/L Normal 21.0-32.0 [facility] Comment on above: Performed By: #### A MY, LIPA #### [facility] [address] [address] [address] Grzegorz Wang Creatinine [Mass/Vol] 0.86 mg/dL Normal 0.55-1.02 [facility] Comment on above: Performed By: #### A MY, LIPA #### [facility] [address] [address] [address] Grzegorz Wang EGFR-AF GAMBIAN >60 Normal >=60 [facility] Comment on above: Performed By: #### A MY, LIPA #### [facility] [address] [address] [address] Grzegorz Wang EGFR-NON AF GAMBIAN >60 Normal >=60 [facility] Comment on above: Performed By: #### A MY, LIPA #### [facility] [address] [address] [address] Grzegorz Wang Globulin (S) [Mass/Vol] 3.1 g/dL Normal [facility] Comment on above: Performed By: #### A MY, LIPA #### [facility] [address] [place] [address] Dr. Grzegorz Wang Glucose [Mass/Vol] 98 mg/dL Normal 74-106 [facility] Comment on above: Performed By: #### A BRAYDEN, LIPA #### [facility] [address] [address] [address] Grzegorz Wang Potassium [Moles/Vol] 2.7 mmol/L Critically low 3.5-5.1 [facility] Comment on above: Performed By: #### A BRAYDEN, LIPA #### [facility] [address] [place] [address] Dr. Grzegorz Wang Protein [Mass/Vol] 6.6 g/dL Normal 6.4-8.2 [facility] Comment on above: Performed By: #### A MY, LIPA #### [facility] [address] [address] [address] Grzegorz Wang Sodium [Moles/Vol] 143 mmol/L Normal 136-145 [facility] Comment on above: Performed By: #### A MY, LIPA #### [facility] [address] [address] [address] Grzegorz Wang Urea nitrogen [Mass/Vol] 12.0 mg/dL Normal 7.0-18.0 [facility] Comment on above: Performed By: #### A PHIL OWEN #### [facility] [address] [place] [address] Dr. Grzegorz Wang Urea nitrogen/Creatinine [Mass ratio] 14.0 mg/mg Normal [facility] Comment on above: Performed By: #### A PHIL OWEN #### [facility] [address] [place] [address] Dr. Grzegorz Wang PROTIMEon 11-26-2021 INR Coag (PPP) [Relative time] 1.00 {INR} Normal [facility] Comment on above: Performed By: #### C BC #### [facility] [address] [place] [address] Dr. Grzegorz Wang INR GUIDELINES SEE BELOW Normal [facility] Comment on above: Result Comment: DENTON RED INR: 2.0 - 3.0 CONDITIONS NOT LISTED BELOW 2.5 - 3.5 FOR PROSTHETIC HEART VALVE REPLACEMENT 2.5 - 3.5 RECURRENT THROMBOSIS Performed By: #### C BC #### [facility] [address] [place] [address] Dr. Grzegorz Wang PT Coag (PPP) [Time] 10.8 s Normal 9.0-11.6 [facility] Comment on above: Performed By: #### C BC #### [facility] [address] [place] [address] Dr. Grzegorz Wang PTTon 11-26-2021 aPTT Coag (Bld) [Time] 23.1 s Normal 22.3-36.2 [facility] Comment on above: Performed By: #### C BC #### [facility] [address] [place] [address] Dr. Grzegorz Wang URINE MICROSCOPIC ONLYon BACTERIA NONE SEEN Normal NONE SEEN [facility] Comment on above: Performed By: #### C BC #### [facility] [address] [place] [address] Dr. Grzegorz Wang Bacteria identified Cx Nom (U) NOT INDICATED Normal [facility] Comment on above: Performed By: #### C BC #### [facility] [address] [place] [address] Dr. Grzegorz Wang CAST NONE SEEN Normal NONE SEEN [facility] Comment on above: Performed By: #### C BC #### [facility] [address] [place] [address] Dr. Grzegorz Wang Crystals LM Nom (Urine sed) NONE SEEN Normal NONE SEEN [facility] Comment on above: Performed By: #### C BC #### [facility] [address] [place] [address] Dr. Grzegorz Wang Epithelial cells LM Ql (Urine sed) FEW Abnormal NONE SEEN /RARE [facility] Comment on above: Performed By: #### C BC #### [facility] [address] [place] [address] Dr. Grzegorz Wang MUCOUS NONE SEEN Normal NONE SEEN [facility] Comment on above: Performed By: #### C BC #### [facility] [address] [place] [address] Dr. Grzegorz Wang RBC 0-2 Normal 0-2 [facility] Comment on above: Performed By: #### C BC #### [facility] [address] [place] [address] Dr. Grzegorz Wang WBC 0-2 Abnormal NONE SEEN [facility] Comment on above: Performed By: #### C BC #### [facility] [address] [place] [address] Dr. Grzegorz Wang XR CHEST 1 Von [...] NATACHA CERNA Date: 2021-11-26 14:21 Normal [facility] CT BRAIN HEAD WO CONTRASTon 11-24-2021 [...] AGUILAR MD Signed Out: 11/24/21 14:21:18 Normal [facility] ED Adult Data - Texton 11-24 ED Adult Data - Text ED Adult Data Enter ed On: 11/24/2021 15:26 EDT Performed On: 11/24/2021 15:25 EDT by Jennifer Mccarthy RN Arrival Information Referral Source ED : Home Lyn Mode of Arrival : Car / Walk-In [...] PNED ; Probability: 0 ; Diagnosis Code: [id number] Fall Date: 11/24/2021 ; Diagnosis Type: Reason For Visit ; Confirmation: Confirmed ; Clinical Dx: Fall ; Classification: Medical ; Clinical Service: Emergency medicine ; Code: PNED ; Probability: 0 ; Diagnosis Code: [id number] Procedure History ED Devices Present on Arrival [...] risk situation (congregated living, hemodialysis, infusion clinic, half-way, assisted living, skilled nursing, homeless alf, etc.)? : No Jennifer Mccarthy RN - 11/24/2021 15:25 EDT Normal [facility] ED Discharge Educationon ED Discharge Education Dermatology Cuts Closed With Kemi: Care Instructions Your Care Instructions A cut can happen anywhere on your body. The doctor used kemi to close the cut. Seaboard easily and quickly close a cut, which [...] your doctor if you can take an nfku-rly-zuzeqoz medicine. When should you call for help? [...] Where can you learn more? Go to [email or web address].Spor/patientEd Enter E546 in the search box to learn more about Cuts Closed With Kemi: Care Instructions. Current as of: April 08, 2019 Content Version: 12.7 ? [employer]. Care instructions adapted under license by your healthcare professional. If you have questions about a medical condition or this instruction, always ask your healthcare professional. [employer] disclaims any warranty or liability for your [...] she will (more content not included)... Normal [facility] ED Emergency Severity Index Adult-Texton 11-24-2021 ED Emergency Severity Index Adult-Text JUSTINO - Adult Entered On: 11/24/2021 12:33 EDT Performed On: 11/24/2021 12:33 EDT by Jennifer Mccarthy RN DCP GENERIC CODE Visit Reason : FALL Tracking Triage Date/Time : 11/24/2021 12:33 EDT Tracking Reg Status : Requested Tracking Acuity : [id number] Tracking Group : [facility] Tracking Jennifer Mccarthy RN - 11/24/2021 12:33 EDT Normal [facility] ED Nrsing Adlt Triage Sep Sc [...] Mccarthy RN - 11/24/2021 13:00 EDT Normal [facility] ED Patient Summaryon 022 ED Patient Summary [facility] Emergency Department Discharge Instructions [address] [place] [address] \.br\(Patient Copy)\.br\ \.br\Name: OZZIE GIFFORD : 1950 \.br\Allergies: penicillin\.br\Diagno sis: Accidental fall; CHI (closed head injury); Contusion of rib on right side; Laceration of scalp\.br\ \.br\ Visit Date: 11/24/2021 12:30:03 \.br\ Current Date Time: 11/24/2021 17:30:08 \.br\Address: [address] [place] [address] \.br\ \.br\ \.br\Primary Care Provider: \.br\Name: NO FAMILY PHYSICIAN, 837\.br\Phone: \.br\ \.br\Emergency Department Care Providers: \.br\ Primary Physician: LUIS MCKEON MD \.br\ \.br\ \.br\.br\Thank you for choosing [facility] for your emergency care. You are very important to us. Our goal is to demonstrate our high quality medical care, and provide you with a very good patient experience.\.br\.br\ You may receive a survey about our service. Please take the time to complete the survey and return it so we can continue to enhance our service.\.br\.br\Maxx nk you again for allowing the [facility] Emergency Department to care for your medical needs. If you have questions about your care or follow up information please contact us at [phone].\.br\.b r\ Follow-Up Instructions\.br\____ _\.br\OZZIE GIFFORD has been given these follow-up instructions:\.br\.b r\.br\With: Address: When: \.br\ONELIA CAMP[facility], Family Practice [address], [address] [place] [address]\.br\ Business (1) Within 7 to 10 days [...] your doctor if you can take an lwgn-rvg-bzabdls medicine.\.br\When should you call for help?\.br\ Call [...] get b (more content not included)... Normal [facility] ED Physician Reporton 2021 ED Physician [...] [facility] Location: Posterior head. The character of symptoms is pain. Therapy today: see nurses notes. Associated symptoms: denies loss of consciousness. This is a 71 y/o female presenting to the ED via EMS for evaluation of a mechanical fall. The patient states she was at the [facility] [employer] and she was going down steps and [...] WO CONTRAST (more content not included)... Normal [facility] ED Pre-Arrival Formon 2021 ED Pre-Arrival Form Pre-Arrival Summary Name: KARTIK, Current Date: 11/24/2021 12:31:19 EDT Gender: Date of : Age: Pre-Arrival Type: EMS ETA: 11/24/2021 12:53:00 EDT Primary Care Physician: Presenting Problem: Pre-Arrival User: Kailyn Jacobs RN Referring Source: Location: 1 [facility] Emergency Department [address] [place] [address] Notes: Vital Signs: Doctor Call Back: DNR Status: Miscellaneous Issues: Normal [facility] ED Progress Noteon ED Progress Note [...] understanding, pt ambulatory with steady gait Normal [facility] ED Triage Adult-Texton 11-24 ED Triage [...] PNED ; Probability: 0 ; Diagnosis Code: [id number] (As Of: 11/24/2021 13:00:25 EDT) Vitals/Ht/Wt Temperature [...] Mccarthy RN - 11/24/2021 12:59 EDT Normal [facility] Urine culture routineOrdered By: Rafiq Bahena on 11-23-2021 Bacteria identified Cx Nom (U) Escherichia coli [facility] Albumin [Mass/volume] in Ser um or PlasmaOrdered By: Ashleigh Rashid on 11-22-2021 Albumin [Mass/Vol] 3.0 g/dL 3.2-5.5 [facility] Basophils Auto (Bld) [#/Vol] Ordered By: Ashleigh Rashid on 11-22-2021 Basophils (Bld) [#/Vol] 0.0 10*3/uL 0.0-0.2 [facility] Basophils/100 WBC Auto (Bld) Ordered By: Ashleigh Rashid on 11-22-2021 Basophils/100 WBC (Bld) 0.6 % . F [facility] Creatinine and Glomerular fi ltration rate.predicted panel (S/P/Bld)Ordered By: Ashleigh Rashid on 11-22-2021 Creatinine [Mass/Vol] 1.10 mg/dL 0.44-1.03 [facility] Comment on above: Delta: 2.08 on 11/21 Eosinophils Auto (Bld) [#/Vo l]Ordered By: Ashleigh Rashid on 11-22-2021 Eosinophils (Bld) [#/Vol] 0.2 10*3/uL 0.0-0.45 [facility] Eosinophils/100 WBC Auto (Bl d)Ordered By: Ashleigh Rashid on 11-22-2021 Eosinophils/100 WBC (Bld) 4.4 % . [facility] Erythrocyte distribution wid th Auto (RBC) [Ratio]Ordered By: Ashleigh Rashid on 11-22-2021 Erythrocyte distribution width (RBC) [Ratio] 20.7 % 11.9-15.3 [facility] Estimated glomerular filtrat ion rate (GFR) non- AmericanOrdered By: Ashleigh Rashid on 11-22-2021 GFR/1.73 sq M.predicted among non-blacks MDRD (S/P/Bld) [Vol rate/Area] 49 mL/Min [facility] Globulin Calc (S) [Mass/Vol] Ordered By: Ashleigh Rashid on 11-22-2021 Globulin (S) [Mass/Vol] 2.4 g/dL F [facility] Hematocrit Auto (Bld) [Volum e fraction]Ordered By: Ashleigh Rashid on 11-22-2021 Hematocrit (Bld) [Volume fraction] 36.9 % 34.0-46.4 [facility] Hemoglobin [Mass/volume] in BloodOrdered By: Ashleigh Rashid on 11-22-2021 Hemoglobin (Bld) [Mass/Vol] 12.1 g/dL 11.8-15.4 [facility] - Chemistry and C hemistry - challengeOrdered By: Ashleigh Rashid on 11-22-2021 Magnesium [Mass/Vol] 2.1 mg/dL 1.6-2.6 [facility] - Hematology and Cell countsOrdered By: Ashleigh Rashid on 11-22-2021 Nucleated RBC/100 WBC (Bld) [Ratio] 0.1 % 0-0.5 [facility] Leukocytes [#/volume] in Blo od by Automated countOrdered By: Ashleigh Rashid on 11-22-2021 WBC (Bld) [#/Vol] 4.7 10*3/uL 4.5-11.0 [facility] Lymphocytes Auto (Bld) [#/Vo l]Ordered By: Ashleigh Rashid on 11-22-2021 Lymphocytes (Bld) [#/Vol] 1.2 10*3/uL 1.00-4.8 [facility] Lymphocytes/100 WBC Auto (Bl d)Ordered By: Ashleigh Rashid on 11-22-2021 Lymphocytes/100 WBC (Bld) 26.0 % . [facility] MCH Auto (RBC) [Entitic mass ]Ordered By: Ashleigh Rashid on 11-22-2021 MCH (RBC) [Entitic mass] 27.2 pg 24.7-34.3 [facility] MCHC Auto (RBC) [Mass/Vol]Or dered By: Ashleigh Rashid on 11-22-2021 MCHC (RBC) [Mass/Vol] 32.6 g/dL 32.0-35.0 [facility] MCV Auto (RBC) [Entitic vol] Ordered By: Ashleigh Rashid on 11-22-2021 MCV (RBC) [Entitic vol] 83.5 fL 80-100 F [facility] Monocytes Auto (Bld) [#/Vol] Ordered By: Ashleigh Rashid on 11-22-2021 Monocytes (Bld) [#/Vol] 0.4 10*3/uL 0.0-0.8 [facility] Monocytes/100 WBC Auto (Bld) Ordered By: Ashleigh Rashid on 11-22-2021 Monocytes/100 WBC (Bld) 8.4 % . F [facility] Neutrophils Auto (Bld) [#/Vo l]Ordered By: Ashleigh Rashid on 11-22-2021 Neutrophils (Bld) [#/Vol] 2.8 10*3/uL 1.8-7.7 [facility] Neutrophils/100 WBC Auto (Bl d)Ordered By: Ashleigh Rashid on 11-22-2021 Neutrophils/100 WBC (Bld) 60.6 % . [facility] No Panel InformationOrdered By: Ashleigh Rashid on 11-22-2021 Estimated GFR () 59 mL/Min [facility] Comment on above: GFR estimated refere nce range: According to KDOQI guidelines, <60 ml/min/1.73m2 is sufficient to diagnose a patient with chronic kidney disease. Pharmacy Creatinine Clearance (Chem 44.22 [facility] Platelet mean volume Auto (B ld) [Entitic vol]Ordered By: Ashleigh Rashid on 11-22-2021 Platelet mean volume (Bld) [Entitic vol] 9.7 fL 6.3-10.7 [facility] Platelets Auto (Bld) [#/Vol] Ordered By: Ashleigh Rashid on 11-22-2021 Platelets (Bld) [#/Vol] 184 10*3/uL 150-450 [facility] Protein [Mass/volume] in Ser um or PlasmaOrdered By: Ashleigh Rashid on 11-22-2021 Protein [Mass/Vol] 5.4 g/dL 6.1-7.9 [facility] RBC Auto (Bld) [#/Vol]Ordere d By: Ashleigh Rashid on 11-22-2021 RBC (Bld) [#/Vol] 4.43 10*6/uL 3.60-5.00 [facility] Serum or plasma alanine zapata otransferase measurement without P-5'-P (enzymatic activiOrdered By: Ashleigh Rashid on 11-22-2021 ALT No additional P-5'-P [Catalytic activity/Vol] 16 U/L [facility] Serum or plasma albumin/glob ulin mass ratioOrdered By: Ashleigh Rashid on 11-22-2021 Albumin/Globulin [Mass ratio] 1.3 {ratio} [facility] Serum or plasma alkaline brandy sphatase measurement (enzymatic activity/volume)Ordered By: Ashleigh Rashid on 11-22-2021 ALP [Catalytic activity/Vol] 70 U/L 32-92 [facility] Serum or plasma anion gap de terminationOrdered By: Ashleigh Rashid on 11-22-2021 Anion gap [Moles/Vol] 12.2 mmol/L 6.0-15.0 [facility] Serum or plasma aspartate am inotransferase measurement (enzymatic activity/volume)Ordered By: Ashleigh Rashid on 11-22-2021 AST [Catalytic activity/Vol] 15 U/L [facility] Serum or plasma calcium lay urement (mass/volume)Ordered By: Ashleigh Rashid on 11-22-2021 Calcium [Mass/Vol] 8.9 mg/dL 8.2-10.2 [facility] Serum or plasma chloride rosaline surement (moles/volume)Ordered By: Ashleigh Rashid on 11-22-2021 Chloride [Moles/Vol] 115 mmol/L 95-114 [facility] Serum or plasma glucose lay urement (mass/volume)Ordered By: Ashleigh Rashid on 11-22-2021 Glucose [Mass/Vol] 93 mg/dL 70-100 [facility] Comment on above: ADA recommended refe rence rangeRandom Glucose Reference Range is dependent on time and content of last meal. Glucose of more than 200 mg/dL in a nonstressed, ambulatory subject supports the diagnosis of Diabetes Mellitus. Serum or plasma potassium me asurement (moles/volume)Ordered By: Ashleigh Rashid on 11-22-2021 Potassium [Moles/Vol] 3.1 mmol/L 3.5-5.1 [facility] Serum or plasma sodium measu rement (moles/volume)Ordered By: Ashleigh Rashid on 11-22-2021 Sodium [Moles/Vol] 147 mmol/L 136-146 [facility] Serum or plasma total biliru bin measurement (mass/volume)Ordered By: Ashleigh Rashid on 11-22-2021 Bilirubin [Mass/Vol] 0.7 mg/dL 0.3-1.2 [facility] Serum or plasma total carbon dioxide measurement (moles/volume)Ordered By: Ashleigh Rashid on 11-22-2021 CO2 [Moles/Vol] 22.9 mmol/L 22.0-30.[address] [facility] Serum or plasma urea nitroge n measurement (mass/volume)Ordered By: Ashleigh Rashid on 11-22-2021 Urea nitrogen [Mass/Vol] 28 mg/dL 9-23 [facility] Amphetamine Screen Ql (U)Ord ered By: Rafiq Bahena on 11-21-2021 Amphetamines Ql (U) Negative Negative [facility] Automated erythrocytes count in urine sediment (number/area)Ordered By: Rafiq Bahena on 11-21-2021 RBC Auto (Urine sed) [#/Area] 0-1 [HPF] 0-4 [facility] Automated leukocytes count i n urine sediment (number/area)Ordered By: Rafiq Bahena on 11-21-2021 WBC Auto (Urine sed) [#/Area] 3-4 [HPF] 0-4 [facility] Barbiturates [Presence] in U rineOrdered By: Rafiq Bahena on 11-21-2021 Barbiturates Ql (U) Negative Negative [facility] Basophils Auto (Bld) [#/Vol] Ordered By: Rafiq Bahena on 11-21-2021 Basophils (Bld) [#/Vol] 0.0 10*3/uL 0.0-0.2 [facility] Basophils/100 WBC Auto (Bld) Ordered By: Rafiq Bahena on 11-21-2021 Basophils/100 WBC (Bld) 0.8 % . F [facility] Benzodiazepines [Presence] i n UrineOrdered By: Rafiq Bahena on 11-21-2021 Benzodiazepines Ql (U) Negative Negative Fi [facility] Bilirubin Test strip Ql (U)O rdered By: Rafiq Bahena on 11-21-2021 Bilirubin Ql (U) Negative Negative [facility] Blood hemoglobin measurement (mass/volume)Ordered By: Rafiq Bahena on 11-21-2021 Hemoglobin (Bld) [Mass/Vol] 11.6 g/dL 11.8-15.4 [facility] Blood leukocytes automated c ount (number/volume)Ordered By: Rafiq Bahena on 11-21-2021 WBC (Bld) [#/Vol] 5.3 10*3/uL 4.5-11.0 [facility] Body fluid albumin measureme nt (mass/volume)Ordered By: Rafiq Bahena on 11-21-2021 Albumin (Body fld) [Mass/Vol] 3.4 g/dL 3.2-5.5 [facility] COVID CepheidOrdered By: Dagoberto Rashid on 11-21-2021 SARS-CoV-2 (COVID-19) Ab IA Ql Negative Negative [facility] Comment on above: This is a duplicate Cepheid Xpert Xpress CoV-2/Flu/RSV Plus RNA by RT-PCR result to be used for statistical tracking purpose only. SARS-CoV-2 (COVID-19) RNA SIOBHAN+probe Ql (Unsp spec) [facility] COVID-19 Positive/NegativeOr dered By: Rafiq Bahena on 11-21-2021 SARS-CoV-2 (COVID-19) N gene SIOBHAN+probe Ql (Resp) Indeterminate Negative [facility] Comment on above: Testing for SARS-CoV -2 by RT-PCRThis test was developed and its performance characteristics determined by [employer] ([employer]) and validated at the [facility]. This test has not been FDA [...] (COVID-19) Ag IA.rapid Ql (Resp) Negative Negative [facility] Comment on above: This is a duplicate Sissy SARS Antigen (WALKER) result to be used for statistical tracking purpose only. Cannabinoids [Presence] in U rine by Screen methodOrdered By: Rafiq Bahena on 11-21-2021 Cannabinoids Screen Ql (U) Negative Negative [facility] Comment on above: These are unconfirme d results and should not be used for legal purposes. Drug Cut-Off Concentration: AMPH 1000 ng/mL RONALD 200 ng/mL CARMELA 200 ng/mL COCM 300 ng/mL OP 300 ng/mL PCP 25 ng/mL THC 20 ng/mL Color Auto (U)Ordered By: Vishnu Bahena on 11-21-2021 Color (U) Yellow Yellow [facility] Creatinine and Glomerular fi ltration rate.predicted panel (S/P/Bld)Ordered By: Rafiq Bahena on 11-21-2021 Creatinine [Mass/Vol] 2.08 mg/dL 0.44-1.03 [facility] Eosinophils Auto (Bld) [#/Vo l]Ordered By: Rafiq Bahena on 11-21-2021 Eosinophils (Bld) [#/Vol] 0.2 10*3/uL 0.0-0.45 [facility] Eosinophils/100 WBC Auto (Bl d)Ordered By: Rafiq Bahena on 11-21-2021 Eosinophils/100 WBC (Bld) 3.7 % . [facility] Erythrocyte distribution wid th Auto (RBC) [Ratio]Ordered By: Rafiq Bahena on 11-21-2021 Erythrocyte distribution width (RBC) [Ratio] 20.4 % 11.9-15.3 [facility] Estimated glomerular filtrat ion rate (GFR) non- AmericanOrdered By: Rafiq Bahena on 11-21-2021 GFR/1.73 sq M.predicted among non-blacks MDRD (S/P/Bld) [Vol rate/Area] 23 mL/Min [facility] Globulin Calc (S) [Mass/Vol] Ordered By: Rafiq Bahena on 11-21-2021 Globulin (S) [Mass/Vol] 2.1 g/dL F [facility] Glucose Glucometer (BldC) [M ass/Vol]Ordered By: Rafiq Bahena on 11-21-2021 Glucose [Mass/Vol] 134 mg/dL [facility] Comment on above: Random Glucose Refer ence Range is dependent on time and content of last meal. Glucose of more than 200 mg/dL in a nonstressed, ambulatory subject supports the diagnosis of Diabetes Mellitus. Hematocrit Auto (Bld) [Volum e fraction]Ordered By: Rafiq Bahena on 11-21-2021 Hematocrit (Bld) [Volume fraction] 35.6 % 34.0-46.4 [facility] Ketones Auto test strip (U) [Mass/Vol]Ordered By: Rafiq Bahena on 11-21-2021 Ketones (U) [Mass/Vol] Negative Negative [facility] - Chemistry and C hemistry - challengeOrdered By: Rafiq Bahena on 11-21-2021 CO2 [Moles/Vol] 23.8 mmol/L 23.0-27.[address] [facility] HCO3 (Bld) [Moles/Vol] 22.6 mmol/L 23.0-29.0 [facility] Laboratory - Drug toxicology Ordered By: Rafiq Bahena on 11-21-2021 Opiates Ql (U) Negative Negative [facility] Laboratory - Hematology and Cell countsOrdered By: Rafiq Bahena on 11-21-2021 Nucleated RBC/100 WBC (Bld) [Ratio] 0.0 % 0-0.5 [facility] Laboratory - UrinalysisOrder ed By: Rafiq Bahena on 11-21-2021 Hyaline casts LM Ql (Urine sed) 0-8 [LPF] 0-8 [facility] Lymphocytes Auto (Bld) [#/Vo l]Ordered By: Rafiq Bahena on 11-21-2021 Lymphocytes (Bld) [#/Vol] 1.1 10*3/uL 1.00-4.8 [facility] Lymphocytes/100 WBC Auto (Bl d)Ordered By: Rafiq Bahena on 11-21-2021 Lymphocytes/100 WBC (Bld) 20.4 % . [facility] MCH Auto (RBC) [Entitic mass ]Ordered By: Rafiq Bahena on 11-21-2021 MCH (RBC) [Entitic mass] 26.9 pg 24.7-34.3 [facility] MCHC Auto (RBC) [Mass/Vol]Or dered By: Rafiq Bahena on 11-21-2021 MCHC (RBC) [Mass/Vol] 32.6 g/dL 32.0-35.0 [facility] MCV Auto (RBC) [Entitic vol] Ordered By: Rafiq Bahena on 11-21-2021 MCV (RBC) [Entitic vol] 82.5 fL 80-100 [facility] Monocyte %Ordered By: Rafiq Bahena on 11-21-2021 Monocyte % 17 umol/L 11-35 [facility] Monocytes Auto (Bld) [#/Vol] Ordered By: Rafiq Bahena on 11-21-2021 Monocytes (Bld) [#/Vol] 0.5 10*3/uL 0.0-0.8 [facility] Monocytes/100 WBC Auto (Bld) Ordered By: Rafiq Bahena on 11-21-2021 Monocytes/100 WBC (Bld) 9.9 % . F [facility] Neutrophils Auto (Bld) [#/Vo l]Ordered By: Rafiq Bahena on 11-21-2021 Neutrophils (Bld) [#/Vol] 3.5 10*3/uL 1.8-7.7 [facility] Neutrophils/100 WBC Auto (Bl d)Ordered By: Rafiq Bahena on 11-21-2021 Neutrophils/100 WBC (Bld) 65.2 % . [facility] Nitrite Test strip Ql (U)Ord ered By: Rafiq Bahena on 11-21-2021 Nitrite Ql (U) Positive Negative [facility] No Panel InformationOrdered By: Ashleigh Rashid on 11-21-2021 Vitamin B12 Level > 7500 pg/mL 180-914 [facility] No Panel InformationOrdered By: Rafiq Bahena on 11-21-2021 Arterial Blood Base Excess -1.9 mmol/L -3.0-3.0 [facility] Arterial Blood Oxygen Content 7.1 mmol/L 6.6-9.7 [facility] Arterial Blood Oxygen Saturation 95.9 % 95.0-100.0 [facility] Arterial Blood Partial Pressure CO2 37.8 mm[Hg] 35.0-45.0 [facility] Arterial Blood Partial Pressure O2 82.7 mm[Hg] 80.0-100.0 [facility] Arterial Blood pH 7.40 7.35-7.45 [facility] Blood Gas Critical Value See comment [facility] Comment on above: Critical Value sargent d on: 11/21/2021 at 06:17 Blood Gas Sample Site Left radial [facility] FiO2 21 % [facility] Estimated GFR () 28 mL/Min [facility] Comment on above: GFR estimated refere nce range: According to KDOQI guidelines, <60 ml/min/1.73m2 is sufficient to diagnose a patient with chronic kidney disease. Pharmacy Creatinine Clearance (Chem 22.98 [facility] Bedside Glucose Comment Glu2: cleaned meter [facility] Phencyclidine Screen Ql (U)O rdered By: Rafiq Bahena on 11-21-2021 Phencyclidine Ql (U) Negative Negative [facility] Platelet mean volume Auto (B ld) [Entitic vol]Ordered By: Rafiq Bahena on 11-21-2021 Platelet mean volume (Bld) [Entitic vol] 9.6 fL 6.3-10.7 [facility] Platelets Auto (Bld) [#/Vol] Ordered By: Rafiq Bahena on 11-21-2021 Platelets (Bld) [#/Vol] 140 10*3/uL 150-450 [facility] Protein Auto test strip (U) [Mass/Vol]Ordered By: Rafiq Bahena on 11-21-2021 Protein (U) [Mass/Vol] Negative Negative [facility] Protein [Mass/volume] in Ser um or PlasmaOrdered By: Rafiq Bahena on 11-21-2021 Protein [Mass/Vol] 5.5 g/dL 6.1-7.9 [facility] RBC Auto (Bld) [#/Vol]Ordere d By: Rafiq Bahena on 11-21-2021 RBC (Bld) [#/Vol] 4.31 10*6/uL 3.60-5.00 [facility] Serum or plasma alanine zapata otransferase measurement without P-5'-P (enzymatic activiOrdered By: Rafiq Bahnea on 11-21-2021 ALT No additional P-5'-P [Catalytic activity/Vol] 17 U/L 10-60 [facility] Serum or plasma albumin/glob ulin mass ratioOrdered By: Rafiq Bahena on 11-21-2021 Albumin/Globulin [Mass ratio] 1.6 {ratio} [facility] Serum or plasma alkaline brandy sphatase measurement (enzymatic activity/volume)Ordered By: Rafiq Bahena on 11-21-2021 ALP [Catalytic activity/Vol] 74 U/L 32-92 [facility] Serum or plasma anion gap de terminationOrdered By: Rafiq Bahena on 11-21-2021 Anion gap [Moles/Vol] 14.6 mmol/L 6.0-15.0 [facility] Serum or plasma aspartate am inotransferase measurement (enzymatic activity/volume)Ordered By: Rafiq Bahena on 11-21-2021 AST [Catalytic activity/Vol] 19 U/L 10 [facility] Serum or plasma calcium lay urement (mass/volume)Ordered By: Rafiq Bahena on 11-21-2021 Calcium [Mass/Vol] 9.1 mg/dL 8.2-10.2 [facility] Serum or plasma chloride rosaline surement (moles/volume)Ordered By: Rafiq Bahena on 11-21-2021 Chloride [Moles/Vol] 107 mmol/L 95-114 [facility] Serum or plasma ethanol lay urement (mass/volume)Ordered By: Rafiq Bahena on 11-21-2021 Ethanol [Mass/Vol] mg/dL [facility] Ethanol [Mass/Vol] TNP [facility] Comment on above: Test not performed Serum or plasma glucose lay urement (mass/volume)Ordered By: Rafiq Bahena on 11-21-2021 Glucose [Mass/Vol] 124 mg/dL 70-100 [facility] Comment on above: ADA recommended refe rence rangeRandom Glucose Reference Range is dependent on time and content of last meal. Glucose of more than 200 mg/dL in a nonstressed, ambulatory subject supports the diagnosis of Diabetes Mellitus. Serum or plasma potassium me asurement (moles/volume)Ordered By: Rafiq Bahena on 11-21-2021 Potassium [Moles/Vol] 3.1 mmol/L 3.5-5.1 [facility] Serum or plasma sodium measu rement (moles/volume)Ordered By: Rafiq Bahena on 11-21-2021 Sodium [Moles/Vol] 142 mmol/L 136-146 [facility] Serum or plasma total biliru bin measurement (mass/volume)Ordered By: Rafiq Bahena on 11-21-2021 Bilirubin [Mass/Vol] 0.3 mg/dL 0.3-1.2 [facility] Serum or plasma total carbon dioxide measurement (moles/volume)Ordered By: Rafiq Bahena on 11-21-2021 CO2 [Moles/Vol] 23.5 mmol/L 22.0-30.[address] [facility] Serum or plasma urea nitroge n measurement (mass/volume)Ordered By: Rafiq Bahena on 11-21-2021 Urea nitrogen [Mass/Vol] 49 mg/dL 9- [facility] Specific gravity Auto test s trip (U) [Rel density]Ordered By: Rafiq Bahena on 11-21-2021 Specific gravity (U) [Rel density] 1.010 1.001-1.030 [facility] Squamous epithelial cells de tection in urine sediment by light microscopyOrdered By: Rafiq Bahena on 11-21-2021 Epithelial cells.squamous LM Ql (Urine sed) 1-2 [HPF] 0-2 [facility] TSH DL <= 0.005 mIU/L QnOrde red By: Rafiq Bahena on 11-21-2021 TSH Qn 2.40 m[IU]/L 0.45-5.33 [facility] Thyroxine (T4) free [Mass/vo lume] in Serum or PlasmaOrdered By: Rafiq Bahena on 11-21-2021 Free T4 [Mass/Vol] 0.68 ng/dL 0.61-1.12 [facility] Troponin I.cardiac [Mass/vol ume] in Serum or Plasma by High sensitivity methodOrdered By: Rafiq Bahena on 11-21-2021 Troponin I.cardiac High sensitivity method [Mass/Vol] 6 pg/mL 0-15 [facility] Urine bacteria detection by automated methodOrdered By: Rafiq Bahena on 11-21-2021 Bacteria Auto Ql (U) 2+ None Seen [facility] Urine clarity by refractomet ry automatedOrdered By: Rafiq Bahena on 11-21-2021 Clarity Refractometry automated (U) Clear Clear [facility] Urine cocaine detectionOrder ed By: Rafiq Bahena on 11-21-2021 Cocaine Ql (U) Negative Negative [facility] Urine glucose measurement by automated test strip (mass/volume)Ordered By: Rafiq Bahena on 11-21-2021 Glucose Auto test strip (U) [Mass/Vol] Normal mg/dL Normal [facility] Urine hemoglobin detection b y automated test stripOrdered By: Rafiq Bahena on 11-21-2021 Hemoglobin Auto test strip Ql (U) Negative Negative [facility] Urine leukocyte esterase det ection by automated test stripOrdered By: Rafiq Bahena on 11-21-2021 Leukocyte esterase Auto test strip Ql (U) 1+ Negative [facility] Urobilinogen Auto test strip (U) [Mass/Vol]Ordered By: Rafiq Bahena on 11-21-2021 Urobilinogen (U) [Mass/Vol] Normal mg/dL Normal [facility] pH Auto test strip (U)Ordere d By: Rafiq Bahena on 11-21-2021 pH (U) 5.5 [pH] 5.0-9.0 [facility] CBC AUTO DIFFon 10-24-2021 BASO # 0.1 103/ul Normal 0.0-0.1 [facility] Comment on above: Performed By: #### C BC #### [facility] [address] [place] [address] Dr. Grzegorz Wang Basophils/100 WBC (Bld) 0.6 % Normal 0.2-2.0 [facility] Comment on above: Performed By: #### C BC #### [facility] [address] [place] [address] Dr. Grzegorz Wang EO # 0.4 103/ul Normal 0.0-0.7 [facility] Comment on above: Performed By: #### C BC #### [facility] [address] [place] [address] Dr. Grzegorz Wang Eosinophils/100 WBC (Bld) 5.0 % Normal 0.9-7.0 [facility] Comment on above: Performed By: #### C BC #### [facility] [address] [place] [address] Dr. Grzegorz Wang Erythrocyte distribution width (RBC) [Ratio] 18.6 % Critically high 11.0-15.0 [facility] Comment on above: Performed By: #### C BC #### [facility] [address] [place] [address] Dr. Grzegorz Wang Hematocrit (Bld) [Volume fraction] 35.7 % Critically low 36.0-48.0 [facility] Comment on above: Performed By: #### C BC #### [facility] [address] [place] [address] Dr. Grzegorz Wang Hemoglobin (Bld) [Mass/Vol] 11.2 g/dL Critically low 12.0-16.0 [facility] Comment on above: Performed By: #### C BC #### [facility] [address] [place] [address] Dr. Grzegorz Wang IG # 0.04 10e3/ul Critically high 0.00-0.03 [facility] Comment on above: Performed By: #### C BC #### [facility] [address] [place] [address] Dr. Grzegorz Wang IG % 0.5 % Normal 0.0-0.5 [facility] Comment on above: Performed By: #### C BC #### [facility] [address] [place] [address] Dr. Grzegorz Wang LYMPH # 1.9 103/ul Normal 1.2-3.8 [facility] Comment on above: Performed By: #### C BC #### [facility] [address] [place] [address] Dr. Grzegorz aWng Lymphocytes/100 WBC (Bld) 22.2 % Normal 20.5-60.0 [facility] Comment on above: Performed By: #### C BC #### [facility] [address] [place] [address] Dr. Grzegorz Wang MANUAL DIFF REQ NO Normal [facility] Comment on above: Performed By: #### C BC #### [facility] [address] [place] [address] Dr. Grzegorz Wang MCH (RBC) [Entitic mass] 26.4 pg Critically low 26.7-34.0 [facility] Comment on above: Performed By: #### C BC #### [facility] [address] [place] [address] Dr. Grzegorz Wang MCHC (RBC) [Mass/Vol] 31.4 g/dL Normal 29.9-35.2 [facility] Comment on above: Performed By: #### C BC #### [facility] [address] [place] [address] Dr. Grzegorz Wang MCV (RBC) [Entitic vol] 84.2 fL Normal 81.0-99.0 [facility] Comment on above: Performed By: #### C BC #### [facility] [address] [place] [address] Dr. Grzegorz Wang MONO # 0.8 103/ul Normal 0.3-0.8 [facility] Comment on above: Performed By: #### C BC #### [facility] [address] [place] [address] Dr. Grzegorz Wang Monocytes/100 WBC (Bld) 10.0 % Normal 1.7-12.0 [facility] Comment on above: Performed By: #### C BC #### [facility] [address] [place] [address] Dr. Grzegorz Wang NEUT # 5.2 103/ul Normal 1.4-6.5 [facility] Comment on above: Performed By: #### C BC #### [facility] [address] [place] [address] Dr. Grzegorz Wang Neutrophils/100 WBC (Bld) 61.7 % Normal 43.0-75.0 [facility] Comment on above: Performed By: #### C BC #### [facility] [address] [place] [address] Dr. Grzegorz Wang Platelet mean volume (Bld) [Entitic vol] 11.8 fL Normal 9.5-13.5 [facility] Comment on above: Performed By: #### C BC #### [facility] [address] [place] [address] Dr. Grzegorz Wang PLT 219 103/ul Normal 150-450 [facility] Comment on above: Performed By: #### C BC #### [facility] [address] [place] [address] Dr. Grzegorz Wang RBC 4.24 106/ul Normal 4.20-5.40 [facility] Comment on above: Performed By: #### C BC #### [facility] [address] [place] [address] Dr. Grzegorz Wang WBC 8.4 103/ul Normal 4.0-11.0 [facility] Comment on above: Performed By: #### C BC #### [facility] [address] [place] [address] Dr. Grzegorz Wang PRBC LEUKOREDUCEDon 10-23-19 ABO and Rh group Nom (Bld) Cross Match Result Compatible Unit Blood Type O Pos Unit Number [id number] Status Information Transfused Product ID Red Blood Cells Product Code [id number] Cross Match Result Compatible Blood Bank Notes CALLED SARATH GLYNN RN ON MEDSUR 10/17/21 @ 0850 Unit Blood Type O Neg Unit Number [id number] Status Information Transfused Product ID Red Blood Cells Product Code [id number] Normal [facility] Comment on above: Performed By: #### C BC #### [facility] [address] [place] [address] Dr. Grzegorz Wang ABO and Rh group Nom (Bld) Cross Match Result Compatible Unit Blood Type O Neg Unit Number [id number] Status Information Transfused Product ID Red Blood Cells Product Code [id number] Cross Match Result Compatible Unit Blood Type O Neg Unit Number [id number] Status Information Transfused Product ID Red Blood Cells Product Code [id number] Normal [facility] Comment on above: Performed By: #### C BC #### [facility] [address] [place] [address] Dr. Grzegorz Wang CBC AUTO DIFFon 10-18-2021 BASO # 0.0 103/ul Normal 0.0-0.1 [facility] Comment on above: Performed By: #### C BC #### [facility] [address] [place] [address] Dr. Grzegorz Wang Basophils/100 WBC (Bld) 0.7 % Normal 0.2-2.0 [facility] Comment on above: Performed By: #### C BC #### [facility] [address] [place] [address] Dr. Grzegorz Wang EO # 0.2 103/ul Normal 0.0-0.7 [facility] Comment on above: Performed By: #### C BC #### [facility] [address] [place] [address] Dr. Grzegorz Wang Eosinophils/100 WBC (Bld) 2.9 % Normal 0.9-7.0 [facility] Comment on above: Performed By: #### C BC #### [facility] [address] [place] [address] Dr. Grzegorz Wang Erythrocyte distribution width (RBC) [Ratio] 17.8 % Critically high 11.0-15.0 [facility] Comment on above: Performed By: #### C BC #### [facility] [address] [place] [address] Dr. Grzegorz Wang Hematocrit (Bld) [Volume fraction] 30.1 % Critically low 36.0-48.0 [facility] Comment on above: Performed By: #### C BC #### [facility] [address] [place] [address] Dr. Grzegorz Wang Hemoglobin (Bld) [Mass/Vol] 9.6 g/dL Critically low 12.0-16.0 [facility] Comment on above: Performed By: #### C BC #### [facility] [address] [place] [address] Dr. Grzegorz Wang IG # 0.08 10e3/ul Critically high 0.00-0.03 [facility] Comment on above: Performed By: #### C BC #### [facility] [address] [place] [address] Dr. Grzegorz Wang IG % 1.3 % Critically high 0.0-0.5 [facility] Comment on above: Performed By: #### C BC #### [facility] [address] [place] [address] Dr. Grzegorz Wang LYMPH # 1.8 103/ul Normal 1.2-3.8 [facility] Comment on above: Performed By: #### C BC #### [facility] [address] [place] [address] Dr. Grzegorz Wang Lymphocytes/100 WBC (Bld) 29.4 % Normal 20.5-60.0 [facility] Comment on above: Performed By: #### C BC #### [facility] [address] [place] [address] Dr. Grzegorz Wang MANUAL DIFF REQ NO Normal [facility] Comment on above: Performed By: #### C BC #### [facility] [facility] [address] [place] [address] Dr. Grzegorz Wang MCH (RBC) [Entitic mass] 25.9 pg Critically low 26.7-34.0 [facility] Comment on above: Performed By: #### C BC #### [facility] [address] [place] [address] Dr. Grzegorz Wang MCHC (RBC) [Mass/Vol] 31.9 g/dL Normal 29.9-35.2 [facility] Comment on above: Performed By: #### C BC #### [facility] [address] [place] [address] Dr. Grzegorz Wang MCV (RBC) [Entitic vol] 81.4 fL Normal 81.0-99.0 [facility] Comment on above: Performed By: #### C BC #### [facility] [address] [place] [address] Dr. Grzegorz Wang MONO # 0.7 103/ul Normal 0.3-0.8 [facility] Comment on above: Performed By: #### C BC #### [facility] [address] [place] [address] Dr. Grzegorz Wang Monocytes/100 WBC (Bld) 11.9 % Normal 1.7-12.0 [facility] Comment on above: Performed By: #### C BC #### [facility] [address] [place] [address] Dr. Grzegorz Wang NEUT # 3.3 103/ul Normal 1.4-6.5 [facility] Comment on above: Performed By: #### C BC #### [facility] [address] [place] [address] Dr. Grzegorz Wang Neutrophils/100 WBC (Bld) 53.8 % Normal 43.0-75.0 [facility] Comment on above: Performed By: #### C BC #### [facility] [address] [place] [address] Dr. Grzegorz Wang Platelet mean volume (Bld) [Entitic vol] 10.5 fL Normal 9.5-13.5 [facility] Comment on above: Performed By: #### C BC #### [facility] [address] [place] [address] Dr. Grzegorz Wang PLT 206 103/ul Normal 150-450 [facility] Comment on above: Performed By: #### C BC #### [facility] [address] [place] [address] Dr. Grzegorz Wang RBC 3.70 106/ul Critically low 4.20-5.40 [facility] Comment on above: Performed By: #### C BC #### [facility] [address] [place] [address] Dr. Grzegorz Wang WBC 6.1 103/ul Normal 4.0-11.0 [facility] Comment on above: Performed By: #### C BC #### [facility] [address] [place] [address] Dr. Grzegorz Wang PROF CHEM 8 (BAS METB)on Anion gap [Moles/Vol] 9.6 mmol/L Normal [facility] Comment on above: Performed By: #### C BC #### [facility] [address] [place] [address] Dr. Grzegorz Wang Calcium [Mass/Vol] 8.5 mg/dL Normal 8.5-10.1 [facility] Comment on above: Performed By: #### C BC #### [facility] [address] [place] [address] Dr. Grzegorz Wang Chloride [Moles/Vol] 113 mmol/L Critically high 98-107 [facility] Comment on above: Performed By: #### C BC #### [facility] [address] [place] [address] Dr. Grzegorz Wang CO2 [Moles/Vol] 26.6 mmol/L Normal 21.0-32.0 [facility] Comment on above: Performed By: #### C BC #### [facility] [address] [address] [address] Grzegorz Wang Creatinine [Mass/Vol] 0.94 mg/dL Normal 0.55-1.02 [facility] Comment on above: Performed By: #### C BC #### [facility] [address] [address] [address] Grzegorz Wang EGFR-AF GAMBIAN >60 Normal >=60 [facility] Comment on above: Performed By: #### C BC #### [facility] [address] [address] [address] Grzegorz Wang EGFR-NON AF GAMBIAN 58 mL/min/1.73m2 Critically low >=60 [facility] Comment on above: Performed By: #### C BC #### [facility] [address] [address] [address] Grzegorz Wang Glucose [Mass/Vol] 97 mg/dL Normal 74-106 [facility] Comment on above: Performed By: #### C BC #### [facility] [address] [address] [address] Grzegorz Wang Potassium [Moles/Vol] 3.2 mmol/L Critically low 3.5-5.1 [facility] Comment on above: Performed By: #### C BC #### [facility] [address] [address] [address] Grzegorz Wang Sodium [Moles/Vol] 146 mmol/L Critically high 136-145 [facility] Comment on above: Performed By: #### C BC #### [facility] [address] [address] [address] Grzegorz Wang Urea nitrogen [Mass/Vol] 38.0 mg/dL Critically high 7.0-18.0 [facility] Comment on above: Performed By: #### C BC #### [facility] [address] [address] [address] Grzegorz Wang Urea nitrogen/Creatinine [Mass ratio] 40.4 mg/mg Normal [facility] Comment on above: Performed By: #### C BC #### [facility] [address] [address] [address] Grzegorz Wang CBC AUTO DIFFon 10-17-2021 BASO # 0.1 103/ul Normal 0.0-0.1 [facility] Comment on above: Performed By: #### C BC #### [facility] [address] [address] [address] Grzegorz Wang Basophils/100 WBC (Bld) 0.9 % Normal 0.2-2.0 [facility] Comment on above: Performed By: #### C BC #### [facility] [address] [address] [address] Grzegorz Wang EO # 0.2 103/ul Normal 0.0-0.7 [facility] Comment on above: Performed By: #### C BC #### [facility] [address] [place] [address] Dr. Grzegorz Wang Eosinophils/100 WBC (Bld) 3.1 % Normal 0.9-7.0 [facility] Comment on above: Performed By: #### C BC #### [facility] [address] [place] [address] Dr. Grzegorz Wang Erythrocyte distribution width (RBC) [Ratio] 17.6 % Critically high 11.0-15.0 [facility] Comment on above: Performed By: #### C BC #### [facility] [address] [place] [address] Dr. Grzegorz Wang Hematocrit (Bld) [Volume fraction] 35.7 % Critically low 36.0-48.0 [facility] Comment on above: Performed By: #### C BC #### [facility] [address] [place] [address] Dr. Grzegorz Wang Hemoglobin (Bld) [Mass/Vol] 11.5 g/dL Critically low 12.0-16.0 [facility] Comment on above: Result Comment: rcvd . blood Performed By: #### C BC #### [facility] [address] [place] [address] Dr. Grzegorz Wang IG # 0.18 10e3/ul Critically high 0.00-0.03 [facility] Comment on above: Performed By: #### C BC #### [facility] [address] [place] [address] Dr. Grzegorz Wang IG % 2.6 % Critically high 0.0-0.5 [facility] Comment on above: Performed By: #### C BC #### [facility] [address] [place] [address] Dr. Grzegorz Wang LYMPH # 1.5 103/ul Normal 1.2-3.8 [facility] Comment on above: Performed By: #### C BC #### [facility] [address] [place] [address] Dr. Grzegorz Wang Lymphocytes/100 WBC (Bld) 21.4 % Normal 20.5-60.0 [facility] Comment on above: Performed By: #### C BC #### [facility] [address] [place] [address] Dr. Grzegorz Wang MANUAL DIFF REQ NO Normal [facility] Comment on above: Performed By: #### C BC #### [facility] [address] [place] [address] Dr. Grzegorz Wang MCH (RBC) [Entitic mass] 26.0 pg Critically low 26.7-34.0 [facility] Comment on above: Performed By: #### C BC #### [facility] [address] [place] [address] Dr. Grzegorz Wang MCHC (RBC) [Mass/Vol] 32.2 g/dL Normal 29.9-35.2 [facility] Comment on above: Performed By: #### C BC #### [facility] [address] [place] [address] Dr. Grzegorz Wang MCV (RBC) [Entitic vol] 80.6 fL Critically low 81.0-99. 0 [facility] Comment on above: Performed By: #### C BC #### [facility] [address] [place] [address] Dr. Grzegorz Wang MONO # 0.7 103/ul Normal 0.3-0.8 [facility] Comment on above: Performed By: #### C BC #### [facility] [address] [place] [address] Dr. Grzegorz Wang Monocytes/100 WBC (Bld) 10.8 % Normal 1.7-12.0 [facility] Comment on above: Performed By: #### C BC #### [facility] [address] [place] [address] Dr. Grzegorz Wang NEUT # 4.2 103/ul Normal 1.4-6.5 [facility] Comment on above: Performed By: #### C BC #### [facility] [address] [place] [address] Dr. Grzegorz Wang Neutrophils/100 WBC (Bld) 61.2 % Normal 43.0-75.0 [facility] Comment on above: Performed By: #### C BC #### [facility] [address] [place] [address] Dr. Grzegorz Wang Platelet mean volume (Bld) [Entitic vol] 9.9 fL Normal 9.5-13.5 [facility] Comment on above: Performed By: #### C BC #### [facility] [address] [place] [address] Dr. Grzegorz Wang PLT 228 103/ul Normal 150-450 [facility] Comment on above: Performed By: #### C BC #### [facility] [address] [place] [address] Dr. Grzegorz Wang RBC 4.43 106/ul Normal 4.20-5.40 [facility] Comment on above: Performed By: #### C BC #### [facility] [address] [place] [address] Dr. Grzegorz Wang WBC 6.9 103/ul Normal 4.0-11.0 [facility] Comment on above: Performed By: #### C BC #### [facility] [address] [place] [address] Dr. Grzegorz Wang BASO # 0.0 103/ul Normal 0.0-0.1 [facility] Comment on above: Performed By: #### C BC #### [facility] [address] [address] [address] Grzegorz Wang Basophils/100 WBC (Bld) 0.8 % Normal 0.2-2.0 [facility] Comment on above: Performed By: #### C BC #### [facility] [address] [address] [address] Grzegorz Wang EO # 0.1 103/ul Normal 0.0-0.7 [facility] Comment on above: Performed By: #### C BC #### [facility] [address] [address] [address] Grzegorz Wang Eosinophils/100 WBC (Bld) 2.4 % Normal 0.9-7.0 [facility] Comment on above: Performed By: #### C BC #### [facility] [address] [place] [address] Dr. Grzegorz Wang Erythrocyte distribution width (RBC) [Ratio] 16.8 % Critically high 11.0-15.0 [facility] Comment on above: Performed By: #### C BC #### [facility] [address] [place] [address] Dr. Grzegorz Wang Hematocrit (Bld) [Volume fraction] 23.2 % Critically low 36.0-48.0 [facility] Comment on above: Performed By: #### C BC #### [facility] [address] [place] [address] Dr. Grzegorz Wang Hemoglobin (Bld) [Mass/Vol] 7.4 g/dL Critically low 12.0-16.0 [facility] Comment on above: Performed By: #### C BC #### [facility] [address] [place] [address] Dr. Grzegorz Wang IG # 0.05 10e3/ul Critically high 0.00-0.03 [facility] Comment on above: Performed By: #### C BC #### [facility] [address] [address] [address] Grzegorz Wang IG % 1.0 % Critically high 0.0-0.5 [facility] Comment on above: Performed By: #### C BC #### [facility] [address] [address] [address] Grzegorz Wang LYMPH # 1.4 103/ul Normal 1.2-3.8 [facility] Comment on above: Performed By: #### C BC #### [facility] [address] [address] [address] Grzegorz Wang Lymphocytes/100 WBC (Bld) 27.8 % Normal 20.5-60.0 [facility] Comment on above: Performed By: #### C BC #### [facility] [address] [address] [address] Grzegorz Wang MANUAL DIFF REQ NO Normal [facility] Comment on above: Performed By: #### C BC #### [facility] [address] [place] [address] Dr. Grzegorz Wang MCH (RBC) [Entitic mass] 25.6 pg Critically low 26.7-34.0 [facility] Comment on above: Performed By: #### C BC #### [facility] [address] [place] [address] Dr. Grzegorz Wang MCHC (RBC) [Mass/Vol] 31.9 g/dL Normal 29.9-35.2 [facility] Comment on above: Performed By: #### C BC #### [facility] [address] [place] [address] Dr. Grzegorz Wang MCV (RBC) [Entitic vol] 80.3 fL Critically low 81.0-99. 0 [facility] Comment on above: Performed By: #### C BC #### [facility] [address] [place] [address] Dr. Grzegorz Wang MONO # 0.6 103/ul Normal 0.3-0.8 [facility] Comment on above: Performed By: #### C BC #### [facility] [address] [place] [address] Dr. Grzegorz Wang Monocytes/100 WBC (Bld) 11.6 % Normal 1.7-12.0 [facility] Comment on above: Performed By: #### C BC #### [facility] [address] [address] [address] Grzegorz Wang NEUT # 2.8 103/ul Normal 1.4-6.5 [facility] Comment on above: Performed By: #### C BC #### [facility] [address] [place] [address] Dr. Grzegorz Wang Neutrophils/100 WBC (Bld) 56.4 % Normal 43.0-75.0 [facility] Comment on above: Performed By: #### C BC #### [facility] [address] [place] [address] Dr. Grzegorz Wang Platelet mean volume (Bld) [Entitic vol] 10.0 fL Normal 9.5-13.5 [facility] Comment on above: Performed By: #### C BC #### [facility] [address] [place] [address] Dr. Grzegorz Wang PLT 193 103/ul Normal 150-450 [facility] Comment on above: Performed By: #### C BC #### [facility] [address] [place] [address] Dr. Grzegorz Wang RBC 2.89 106/ul Critically low 4.20-5.40 [facility] Comment on above: Performed By: #### C BC #### [facility] [address] [place] [address] Dr. Grzegorz Wang WBC 4.9 103/ul Normal 4.0-11.0 [facility] Comment on above: Performed By: #### C BC #### [facility] [address] [place] [address] Dr. Grzegorz Wang PROF CHEM 8 (BAS METB)on Anion gap [Moles/Vol] 11.4 mmol/L Normal [facility] Comment on above: Performed By: #### A LUCHO OWENA #### [facility] [address] [place] [address] Dr. Grzegorz Wang Calcium [Mass/Vol] 8.3 mg/dL Critically low 8.5-10.1 [facility] Comment on above: Performed By: #### A MY, LIPA #### [facility] [address] [address] [address] Grzegorz Wang Chloride [Moles/Vol] 116 mmol/L Critically high 98-107 [facility] Comment on above: Performed By: #### A MY, LIPA #### [facility] [address] [address] [address] Grzegorz Wang CO2 [Moles/Vol] 21.1 mmol/L Normal 21.0-32.0 [facility] Comment on above: Performed By: #### A MY, LIPA #### [facility] [address] [address] [address] Grzegorz Wang Creatinine [Mass/Vol] 1.07 mg/dL Critically high 0.55-1.02 [facility] Comment on above: Performed By: #### A BRAYDEN, LIPA #### [facility] [address] [address] [address] Grzegorz Wang EGFR-AF GAMBIAN >60 Normal >=60 [facility] Comment on above: Performed By: #### A BRAYDEN, LIPA #### [facility] [address] [address] [address] Grzegorz Wang EGFR-NON AF GAMBIAN 50 mL/min/1.73m2 Critically low >=60 [facility] Comment on above: Performed By: #### A BRAYDEN, LIPA #### [facility] [address] [address] [address] Grzegorz Wang Glucose [Mass/Vol] 90 mg/dL Normal 74-106 [facility] Comment on above: Performed By: #### A BRAYDEN, LIPA #### [facility] [address] [address] [address] Grzegorz Wang Potassium [Moles/Vol] 3.5 mmol/L Normal 3.5-5.1 [facility] Comment on above: Performed By: #### A MY, LIPA #### [facility] [address] [address] [address] Grzegorz Wang Sodium [Moles/Vol] 145 mmol/L Normal 136-145 [facility] Comment on above: Performed By: #### A MY, LIPA #### [facility] [address] [place] [address] Dr. Grzegorz Wang Urea nitrogen [Mass/Vol] 59.0 mg/dL Critically high 7.0-18.0 [facility] Comment on above: Performed By: #### A MY, LIPA #### [facility] [address] [place] [address] Dr. Grzegorz Wang Urea nitrogen/Creatinine [Mass ratio] 55.1 mg/mg Normal [facility] Comment on above: Performed By: #### A BRAYDEN, LIPA #### [facility] [address] [place] [address] Dr. Grzegorz Wang AMYLASEon 10-16-2021 Amylase [Catalytic activity/Vol] 41 U/L Normal 25-115 [facility] Comment on above: Performed By: #### A BRAYDEN LIPA #### [facility] [address] [place] [address] Dr. Grzegorz Wang CBC AUTO DIFFon 10-16-2021 BASO # 0.1 103/ul Normal 0.0-0.1 [facility] Comment on above: Performed By: #### A BRAYDEN LIPA #### [facility] [address] [place] [address] Dr. Grzegorz Wang Basophils/100 WBC (Bld) 0.7 % Normal 0.2-2.0 [facility] Comment on above: Performed By: #### A BRAYDEN LIPA #### [facility] [address] [place] [address] Dr. Grzegorz Wang EO # 0.2 103/ul Normal 0.0-0.7 [facility] Comment on above: Performed By: #### A BRAYDEN LIPA #### [facility] [address] [place] [address] Dr. Grzegorz Wang Eosinophils/100 WBC (Bld) 2.4 % Normal 0.9-7.0 [facility] Comment on above: Performed By: #### A BRAYDEN, LIPA #### [facility] [address] [place] [address] Dr. Grzegorz Wang Erythrocyte distribution width (RBC) [Ratio] 17.1 % Critically high 11.0-15.0 [facility] Comment on above: Performed By: #### A PHIL OWEN #### [facility] [address] [place] [address] Dr. Grzegorz Wang Hematocrit (Bld) [Volume fraction] 26.0 % Critically low 36.0-48.0 [facility] Comment on above: Performed By: #### A BRAYDEN LIPA #### [facility] [address] [place] [address] Dr. Grzegorz Wnag Hemoglobin (Bld) [Mass/Vol] 8.4 g/dL Critically low 12.0-16.0 [facility] Comment on above: Performed By: #### A LUCHO OWENA #### [facility] [address] [place] [address] Dr. Grzegorz Wang IG # 0.03 10e3/ul Normal 0.00-0.03 [facility] Comment on above: Performed By: #### A BRAYDEN LIPA #### [facility] [address] [place] [address] Dr. Grzegorz Wang IG % 0.4 % Normal 0.0-0.5 [facility] Comment on above: Performed By: #### A BRAYDEN LIPA #### [facility] [address] [place] [address] Dr. Grzegorz Wang LYMPH # 1.9 103/ul Normal 1.2-3.8 [facility] Comment on above: Performed By: #### A BRAYDEN LIPA #### [facility] [address] [place] [address] Dr. Grzegorz Wang Lymphocytes/100 WBC (Bld) 27.3 % Normal 20.5-60.0 [facility] Comment on above: Performed By: #### A LUCHO OWENA #### [facility] [address] [place] [address] Dr. Grzegorz Wang MANUAL DIFF REQ NO Normal [facility] Comment on above: Performed By: #### A LUCHO OWENA #### [facility] [address] [place] [address] Dr. Grzegorz Wang MCH (RBC) [Entitic mass] 26.0 pg Critically low 26.7-34.0 [facility] Comment on above: Performed By: #### A BRAYDEN LIPA #### [facility] [address] [place] [address] Dr. Grzegorz Wang MCHC (RBC) [Mass/Vol] 32.3 g/dL Normal 29.9-35.2 [facility] Comment on above: Performed By: #### A BRAYDEN, LIPA #### [facility] [address] [place] [address] Dr. Grzegorz Wang MCV (RBC) [Entitic vol] 80.5 fL Critically low 81.0-99. 0 [facility] Comment on above: Performed By: #### A BRAYDEN LIPA #### [facility] [address] [place] [address] Dr. Grzegorz Wang MONO # 0.7 103/ul Normal 0.3-0.8 [facility] Comment on above: Performed By: #### A BRAYDEN LIPA #### [facility] [address] [place] [address] Dr. Grzegorz Wang Monocytes/100 WBC (Bld) 10.5 % Normal 1.7-12.0 [facility] Comment on above: Performed By: #### A BRAYDEN LIPA #### [facility] [address] [place] [address] Dr. Grzegorz Wang NEUT # 4.1 103/ul Normal 1.4-6.5 [facility] Comment on above: Performed By: #### A BRAYDEN LIPA #### [facility] [address] [place] [address] Dr. Grzegorz Wang Neutrophils/100 WBC (Bld) 58.7 % Normal 43.0-75.0 [facility] Comment on above: Performed By: #### A BRAYDEN, LIPA #### [facility] [address] [place] [address] Dr. Grzegorz Wang Platelet mean volume (Bld) [Entitic vol] 10.4 fL Normal 9.5-13.5 [facility] Comment on above: Performed By: #### A MY, LIPA #### [facility] [address] [address] [address] Grzegorz Wang PLT 217 103/ul Normal 150-450 [facility] Comment on above: Performed By: #### A MY, LIPA #### [facility] [address] [address] [address] Grzegorz Wang RBC 3.23 106/ul Critically low 4.20-5.40 [facility] Comment on above: Performed By: #### A MY, LIPA #### [facility] [address] [address] [address] Grzegorz Wang WBC 7.1 103/ul Normal 4.0-11.0 [facility] Comment on above: Performed By: #### A MY, LIPA #### [facility] [address] [place] [address] Dr. Grzegorz Wang BASO # 0.0 103/ul Normal 0.0-0.1 [facility] Comment on above: Performed By: #### C BC #### [facility] [address] [place] [address] Dr. Grzegorz Wang Basophils/100 WBC (Bld) 0.5 % Normal 0.2-2.0 [facility] Comment on above: Performed By: #### C BC #### [facility] [address] [place] [address] Dr. Grzegorz Wang EO # 0.1 103/ul Normal 0.0-0.7 [facility] Comment on above: Performed By: #### C BC #### [facility] [address] [place] [address] Dr. Grzegorz Wang Eosinophils/100 WBC (Bld) 0.8 % Critically low 0.9-7.0 [facility] Comment on above: Performed By: #### C BC #### [facility] [address] [place] [address] Dr. Grzegorz Wang Erythrocyte distribution width (RBC) [Ratio] 16.8 % Critically high 11.0-15.0 [facility] Comment on above: Performed By: #### C BC #### [facility] [address] [place] [address] Dr. Grzegorz Wang Hematocrit (Bld) [Volume fraction] 19.5 % Critically low 36.0-48.0 [facility] Comment on above: Performed By: #### C BC #### [facility] [address] [place] [address] Dr. Grzegorz Wang Hemoglobin (Bld) [Mass/Vol] 6.0 g/dL Critically low 12.0-16.0 [facility] Comment on above: Result Comment: repe ated Performed By: #### C BC #### [facility] [facility] [address] [place] [address] Dr. Grzegorz Wang IG # 0.05 10e3/ul Critically high 0.00-0.03 [facility] Comment on above: Performed By: #### C BC #### [facility] [address] [place] [address] Dr. Grzegorz Wang IG % 0.6 % Critically high 0.0-0.5 [facility] Comment on above: Performed By: #### C BC #### [facility] [address] [place] [address] Dr. Grzegorz Wang LYMPH # 1.8 103/ul Normal 1.2-3.8 [facility] Comment on above: Performed By: #### C BC #### [facility] [address] [place] [address] Dr. Grzegorz Wang Lymphocytes/100 WBC (Bld) 21.6 % Normal 20.5-60.0 [facility] Comment on above: Performed By: #### C BC #### [facility] [address] [place] [address] Dr. Grzegorz Wang MANUAL DIFF REQ NO Normal [facility] Comment on above: Performed By: #### C BC #### [facility] [address] [place] [address] Dr. Grzegorz Wang MCH (RBC) [Entitic mass] 23.4 pg Critically low 26.7-34.0 [facility] Comment on above: Performed By: #### C BC #### [facility] [address] [address] [address] Grzegorz Wang MCHC (RBC) [Mass/Vol] 30.6 g/dL Normal 29.9-35.2 [facility] Comment on above: Performed By: #### C BC #### [facility] [address] [address] [address] Grzegorz Wang MCV (RBC) [Entitic vol] 76.6 fL Critically low 81.0-99. 0 [facility] Comment on above: Performed By: #### C BC #### [facility] [address] [place] [address] Dr. Grzegorz Wang MONO # 0.6 103/ul Normal 0.3-0.8 [facility] Comment on above: Performed By: #### C BC #### [facility] [address] [place] [address] Dr. Grzegorz Wang Monocytes/100 WBC (Bld) 7.3 % Normal 1.7-12.0 [facility] Comment on above: Performed By: #### C BC #### [facility] [address] [place] [address] Dr. Grzegorz Wang NEUT # 5.9 103/ul Normal 1.4-6.5 [facility] Comment on above: Performed By: #### C BC #### [facility] [address] [place] [address] Dr. Grzegorz Wang Neutrophils/100 WBC (Bld) 69.2 % Normal 43.0-75.0 [facility] Comment on above: Performed By: #### C BC #### [facility] [address] [place] [address] Dr. Grzegorz Wang Platelet mean volume (Bld) [Entitic vol] 10.5 fL Normal 9.5-13.5 [facility] Comment on above: Performed By: #### C BC #### [facility] [address] [place] [address] Dr. Grzegorz Wang PLT 288 103/ul Normal 150-450 [facility] Comment on above: Performed By: #### C BC #### [facility] [address] [place], [place] [address] Dr. Grzegorz Wang RBC 2.52 106/ul Critically low 4.20-5.40 [facility] Comment on above: Performed By: #### C BC #### [facility] [address] [place], [place] [address] Dr. Grzegorz Wang WBC 8.5 103/ul Normal 4.0-11.0 [facility] Comment on above: Performed By: #### C BC #### [facility] [address] [place], [place] [address] ABD/PELVIS WO CONon [...] LYNN OLSON Date: 2021-10-16 13:53 Normal [facility] Covid-19 PCR (CVDTB)on SARS-CoV-2 (COVID-19) RNA SIOBHAN+probe Ql (Unsp spec) Not detected Normal NOT DETECTED [facility] Comment on above: Result Comment: When [...] for this test is supported by the [employer] Health and Human Service's declaration that [...] used). Performed By: #### E RUR #### [facility] [address] [place] [address] Dr. Grzegorz Wang ER URINE PROFILEon 2 Bilirubin Ql (U) Negative Normal NEGATIVE [facility] Comment on above: Performed By: #### A BRAYDEN, LIPA #### [facility] [address] [place] [address] Dr. Grzegorz Wang Clarity (U) CLEAR Normal CLEAR [facility] Comment on above: Performed By: #### A BRAYDEN, LIPA #### [facility] [address] [place] [address] Dr. Grzegorz Wang Color (U) LT. YELLOW Normal YELLOW [facility] Comment on above: Performed By: #### A BRAYDEN, LIPA #### [facility] [address] [place] [address] Dr. Grzegorz HERNANDEZD A micrscopic examination will be performed if indicated. Normal [facility] Comment on above: Performed By: #### A BRAYDEN, LIPA #### [facility] [address] [place] [address] Dr. Grzegorz Wang Glucose Ql (U) Negative Normal NEGATIVE [facility] Comment on above: Performed By: #### A BRAYDEN, LIPA #### [facility] [address] [place] [address] Dr. Grzegorz Wang Hemoglobin Ql (U) SMALL Abnormal NEGATIVE [facility] Comment on above: Performed By: #### A BRAYDEN, LIPA #### [facility] [address] [place] [address] Dr. Grzegorz Wang Ketones Ql (U) Negative Normal NEGATIVE [facility] Comment on above: Performed By: #### A MY, LIPA #### [facility] [address] [place] [address] Dr. Grzegorz Wang LEUKOCYTES TRACE Abnormal NEGATIVE [facility] Comment on above: Performed By: #### A MY, LIPA #### [facility] [address] [place] [address] Dr. Grzegorz Wang Nitrite Ql (U) Negative Normal NEGATIVE [facility] Comment on above: Performed By: #### A MY, LIPA #### [facility] [address] [place] [address] Dr. Grzegorz Wang pH (U) 5.5 [pH] Normal 5-9 [facility] Comment on above: Performed By: #### A MY, LIPA #### [facility] [address] [place] [address] Dr. Grzegorz Wang SPEC GRAVITY 1.005 Normal 1.005-<=1.0 25 [facility] Comment on above: Performed By: #### A MY, LIPA #### [facility] [address] [place] [address] Dr. Grzegorz Wang UA PROTEIN Negative Normal NEGATIVE/ TRACE [facility] Comment on above: Performed By: #### A MY, LIPA #### [facility] [address] [place] [address] Dr. Grzegorz Wang UR MICRO IND INDICATED Normal [facility] Comment on above: Performed By: #### A BRAYDEN, LIPA #### [facility] [address] [place] [address] Dr. Grzegorz Wang Urobilinogen Qn (U) 0.2 {Lidya'U}/dL Normal 0.2 - 1. 0 [facility] Comment on above: Performed By: #### A MY, LIPA #### [facility] [address] [place] [address] Dr. Grzegorz Wang LIPASEon 10-16-2021 Lipase [Catalytic activity/Vol] 77.0 U/L Normal 73.0-393.0 [facility] Comment on above: Performed By: #### A BRAYDEN LIPLuna #### [facility] [address] [place] [address] Dr. Grzegorz Wang OCC BLD IMMUNO SCREENon OCCULT BLOOD Positive Abnormal NEGATIVE [facility] Comment on above: Performed By: #### A BRAYDEN LIPA #### [facility] [address] [place] [address] Dr. Grzegorz Wang PROF 14(COMP METB)on 022 Albumin [Mass/Vol] 3.4 g/dL Normal 3.4-5.0 [facility] Comment on above: Performed By: #### C BC #### [facility] [address] [place] [address] Dr. Grzegorz Wang Albumin/Globulin [Mass ratio] 1.2 {ratio} Normal [facility] Comment on above: Performed By: #### C BC #### [facility] [address] [place] [address] Dr. Grzegorz Wang ALP [Catalytic activity/Vol] 77 U/L Normal 46-116 [facility] Comment on above: Performed By: #### C BC #### [facility] [address] [place] [address] Dr. Grzegorz Wang ALT [Catalytic activity/Vol] 18 U/L Normal 14-59 [facility] Comment on above: Performed By: #### C BC #### [facility] [address] [place] [address] Dr. Grzegorz Wang Anion gap [Moles/Vol] 15.3 mmol/L Normal [facility] Comment on above: Performed By: #### C BC #### [facility] [address] [place] [address] Dr. Grzegorz Wang AST [Catalytic activity/Vol] 17 U/L Normal 15-37 [facility] Comment on above: Performed By: #### C BC #### [facility] [address] [place] [address] Dr. Grzegorz Wang Bilirubin [Mass/Vol] 0.4 mg/dL Normal 0.2-1.0 [facility] Comment on above: Performed By: #### C BC #### [facility] [address] [address] [address] Grzegorz Wang Calcium [Mass/Vol] 8.5 mg/dL Normal 8.5-10.1 [facility] Comment on above: Performed By: #### C BC #### [facility] [address] [address] [address] Grzegorz Wang Chloride [Moles/Vol] 104 mmol/L Normal 98-107 [facility] Comment on above: Performed By: #### C BC #### [facility] [address] [address] [address] Grzegorz Wang CO2 [Moles/Vol] 21.2 mmol/L Normal 21.0-32.0 [facility] Comment on above: Performed By: #### C BC #### [facility] [address] [place] [address] Dr. Grzegorz Wang Creatinine [Mass/Vol] 1.68 mg/dL Critically high 0.55-1.02 [facility] Comment on above: Performed By: #### C BC #### [facility] [address] [address] [address] Grzegorz Wang EGFR-AF GAMBIAN 36 mL/min/1.73m2 Critically low >=60 [facility] Comment on above: Performed By: #### C BC #### [facility] [address] [address] [address] Grzegorz Wang EGFR-NON AF GAMBIAN 30 mL/min/1.73m2 Critically low >=60 [facility] Comment on above: Performed By: #### C BC #### [facility] [address] [address] [address] Grzegorz Wang Globulin (S) [Mass/Vol] 2.8 g/dL Normal T [facility] Comment on above: Performed By: #### C BC #### [facility] [address] [address] [address] Grzegorz Wang Glucose [Mass/Vol] 101 mg/dL Normal 74-106 [facility] Comment on above: Performed By: #### C BC #### [facility] [address] [address] [address] Grzegorz Wang Potassium [Moles/Vol] 3.5 mmol/L Normal 3.5-5.1 [facility] Comment on above: Performed By: #### C BC #### [facility] [address] [address] [address] Grzegorz Wang Protein [Mass/Vol] 6.2 g/dL Critically low 6.4-8.2 [facility] Comment on above: Performed By: #### C BC #### [facility] [address] [address] [address] Grzegorz Wang Sodium [Moles/Vol] 137 mmol/L Normal 136-145 [facility] Comment on above: Performed By: #### C BC #### [facility] [address] [place] [address] Dr. Grzegorz Wang Urea nitrogen [Mass/Vol] 83.0 mg/dL Critically high 7.0-18.0 [facility] Comment on above: Result Comment: repe ated Performed By: #### C BC #### [facility] [address] [place] [address] Dr. Grzegorz Wang Urea nitrogen/Creatinine [Mass ratio] 49.4 mg/mg Normal [facility] Comment on above: Performed By: #### C BC #### [facility] [address] [place] [address] Dr. Grzegorz Wang PROTIMEon 10-16-2021 INR Coag (PPP) [Relative time] 0.99 {INR} Normal [facility] Comment on above: Performed By: #### P T, PTT #### [facility] [address] [place] [address] Dr. Grzegorz Wang INR GUIDELINES SEE BELOW Normal [facility] Comment on above: Result Comment: DENTON RED INR: 2.0 - 3.0 CONDITIONS NOT LISTED BELOW 2.5 - 3.5 FOR PROSTHETIC HEART VALVE REPLACEMENT 2.5 - 3.5 RECURRENT THROMBOSIS Performed By: #### P T, PTT #### [facility] [address] [place] [address] Dr. Grzegorz Wang PT Coag (PPP) [Time] 10.7 s Normal 9.0-11.6 [facility] Comment on above: Performed By: #### P T, PTT #### [facility] [address] [place] [address] Dr. Grzegorz Wang PTTon 10-16-2021 aPTT Coag (Bld) [Time] 23.5 s Normal 22.3-36.2 Th [facility] Comment on above: Performed By: #### P T, PTT #### [facility] [address] [place] [address] Dr. Grzegorz Wang TYPE AND SCREENon 10-16-2021 TYPE AND SCREEN Negative Normal [facility] Comment on above: Performed By: #### C BC #### [facility] [address] [place] [address] Dr. Grzegorz Wang URINE MICROSCOPIC ONLYon BACTERIA NONE SEEN Normal NONE SEEN [facility] Comment on above: Performed By: #### A MY, LIPA #### [facility] [address] [place] [address] Dr. Grzegorz Wang Bacteria identified Cx Nom (U) NOT INDICATED Normal [facility] Comment on above: Performed By: #### A MY, LIPA #### [facility] [address] [place] [address] Dr. Grzegorz Wang CAST NONE SEEN Normal NONE SEEN [facility] Comment on above: Performed By: #### A MY, LIPA #### [facility] [address] [place] [address] Dr. Grzegorz Wang Crystals LM Nom (Urine sed) NONE SEEN Normal NONE SEEN [facility] Comment on above: Performed By: #### A MY, LIPA #### [facility] [address] [place] [address] Dr. Grzegorz Wang Epithelial cells LM Ql (Urine sed) RARE Normal NONE SEEN /RARE [facility] Comment on above: Performed By: #### A MY, LIPA #### [facility] [address] [place] [address] Dr. Grzegorz Wang MUCOUS NONE SEEN Normal NONE SEEN [facility] Comment on above: Performed By: #### A MY, LIPA #### [facility] [address] [address] [address] Grzegorz Wang RBC NONE SEEN Abnormal 0-2 [facility] Comment on above: Performed By: #### A MY, LIPA #### [facility] [address] [address] [address] Grzegorz Wang WBC NONE SEEN Normal NONE SEEN [facility] Comment on above: Performed By: #### A MY, LIPA #### [facility] [address] [address] [address] Grzegorz Wang BNPon 09-02-2021 Natriuretic peptide B (Bld) [Mass/Vol] 140.0 pg/mL Normal <=900.0 [facility] Comment on above: Performed By: #### C BC #### [facility] [address] [place] [address] Dr. Grzegorz Wang CARDIAC BAMBI ADMITon 022 CK [Catalytic activity/Vol] 121 U/L Normal 26-192 [facility] Comment on above: Performed By: #### C BC #### [facility] [address] [place] [address] Dr. Grzegorz Wang CK.MB [Mass/Vol] 2.44 ng/mL Normal <=3.60 [facility] Comment on above: Performed By: #### C BC #### [facility] [address] [place] [address] Dr. Grzegorz Wang HSTROP 9.8 pg/mL Normal 4.0-51.3 [facility] Comment on above: Result Comment: CUT- OFF POINTS HAVE BEEN ESTABLISHED BASED ON THE FOURTH UNIVERSAL DEFINITIONS OF MYOCARDIAL INFARCTION. THE UPPER REFERENCE LIMIT (URL) OF TROPONIN, DEFINED THE 99TH PERCENTILE OF cTnI DISTRIBUTION IN A REFERENCE POPULATION, HAS BEEN CONFIRMED THE DECISION THRESHOLD FOR [place] DIAGNOSIS. Performed By: #### C BC #### [facility] [address] [place] [address] Dr. Gzregorz Wang MITZI 109 ng/mL Critically high 9-82 [facility] Comment on above: Performed By: #### C BC #### [facility] [address] [place] [address] Dr. Grzegorz Wang CBC AUTO DIFFon 09-02-2021 BASO # 0.0 103/ul Normal 0.0-0.1 [facility] Comment on above: Performed By: #### C BC #### [facility] [address] [place] [address] Dr. Grzegorz Wang Basophils/100 WBC (Bld) 0.5 % Normal 0.2-2.0 [facility] Comment on above: Performed By: #### C BC #### [facility] [address] [place] [address] Dr. Grzegorz Wang EO # 0.1 103/ul Normal 0.0-0.7 [facility] Comment on above: Performed By: #### C BC #### [facility] [address] [place] [address] Dr. Grzegorz Wang Eosinophils/100 WBC (Bld) 3.1 % Normal 0.9-7.0 [facility] Comment on above: Performed By: #### C BC #### [facility] [address] [place] [address] Dr. Grzegorz Wang Erythrocyte distribution width (RBC) [Ratio] 16.0 % Critically high 11.0-15.0 [facility] Comment on above: Performed By: #### C BC #### [facility] [address] [place] [address] Dr. Grzegorz Wang Hematocrit (Bld) [Volume fraction] 32.0 % Critically low 36.0-48.0 [facility] Comment on above: Performed By: #### C BC #### [facility] [address] [place] [address] Dr. Grzegorz Wang Hemoglobin (Bld) [Mass/Vol] 10.1 g/dL Critically low 12.0-16.0 [facility] Comment on above: Performed By: #### C BC #### [facility] [address] [place] [address] Dr. Grzegorz Wang IG # 0.01 10e3/ul Normal 0.00-0.03 [facility] Comment on above: Performed By: #### C BC #### [facility] [address] [place] [address] Dr. Grzegorz Wang IG % 0.3 % Normal 0.0-0.5 [facility] Comment on above: Performed By: #### C BC #### [facility] [address] [place] [address] Dr. Grzegorz Wang LYMPH # 1.7 103/ul Normal 1.2-3.8 [facility] Comment on above: Performed By: #### C BC #### [facility] [address] [place] [address] Dr. Grzegorz Wang Lymphocytes/100 WBC (Bld) 43.1 % Normal 20.5-60.0 [facility] Comment on above: Performed By: #### C BC #### [facility] [address] [place] [address] Dr. Grzegorz Wang MANUAL DIFF REQ NO Normal [facility] Comment on above: Performed By: #### C BC #### [facility] [address] [place] [address] Dr. Grzegorz Wang MCH (RBC) [Entitic mass] 23.9 pg Critically low 26.7-34.0 [facility] Comment on above: Performed By: #### C BC #### [facility] [address] [place] [address] Dr. Grzegorz Wang MCHC (RBC) [Mass/Vol] 31.6 g/dL Normal 29.9-35.2 [facility] Comment on above: Performed By: #### C BC #### [facility] [address] [place] [address] Dr. Grzegorz Wang MCV (RBC) [Entitic vol] 75.8 fL Critically low 81.0-99. 0 [facility] Comment on above: Performed By: #### C BC #### [facility] [address] [place] [address] Dr. Grzegorz Wang MONO # 0.4 103/ul Normal 0.3-0.8 [facility] Comment on above: Performed By: #### C BC #### [facility] [address] [place] [address] Dr. Grzegorz Wang Monocytes/100 WBC (Bld) 9.7 % Normal 1.7-12.0 [facility] Comment on above: Performed By: #### C BC #### [facility] [address] [address] [address] Grzegorz Wang NEUT # 1.7 103/ul Normal 1.4-6.5 [facility] Comment on above: Performed By: #### C BC #### [facility] [address] [place] [address] Dr. Grzegorz Wang Neutrophils/100 WBC (Bld) 43.3 % Normal 43.0-75.0 [facility] Comment on above: Performed By: #### C BC #### [facility] [address] [place] [address] Dr. Grzegorz Wang Platelet mean volume (Bld) [Entitic vol] 10.1 fL Normal 9.5-13.5 [facility] Comment on above: Performed By: #### C BC #### [facility] [address] [place] [address] Dr. Grzegorz Wang PLT 179 103/ul Normal 150-450 [facility] Comment on above: Performed By: #### C BC #### [facility] [address] [place] [address] Dr. Grezgorz Wang RBC 4.22 106/ul Normal 4.20-5.40 [facility] Comment on above: Performed By: #### C BC #### [facility] [address] [place] [address] Dr. Grzegorz Wang WBC 3.8 103/ul Critically low 4.0-11.0 [facility] Comment on above: Performed By: #### C BC #### [facility] [address] [place] [address] CSPINE WO CONon CT CSPINE WO CON EXAMINATION: CT CSPINE [...] JEAN-PIERRE GIRALDO Date: 2021-09-02 19:33 Normal [facility] CT STROKE HEAD WOon 09-03-19 CT STROKE HEAD WO EXAMINATION: CT STROKE [...] JEAN-PIERRE GIRALDO Date: 2021-09-02 19:29 Normal [facility] Covid-19 PCR (CVDTBH)on 08-12 SARS-CoV-2 (COVID-19) RNA SIOBHAN+probe Ql (Unsp spec) Detected Critically abnormal NOT DETECTED [facility] Comment on above: Result Comment: This test is not yet approved or cleared by the [place] FDA. When there are no FDA-approved or cleared tests available, and other criteria are met, FDA can make tests available under an emergency access mechanism called an Emergency Use Authorization (EUA). The EUA for this test is supported by the [employer] Health and Human Service's declaration that [...] used). Performed By: #### C BC #### [facility] [address] [place] [address] Dr. Grzegorz Wang DRUG SCREEN RAPID (URINE)on 09-02-2021 AMP Negative Normal NEGATIVE [facility] Comment on above: Performed By: #### E RUR #### [facility] [address] [place] [address] Dr. Grzegorz Wang BAR Negative Normal NEGATIVE [facility] Comment on above: Performed By: #### E RUR #### [facility] [address] [place] [address] Dr. Grzegorz Wang BUP Negative Normal NEGATIVE [facility] Comment on above: Performed By: #### E RUR #### [facility] [address] [place] [address] Dr. Grzegorz Wang BZO Negative Normal NEGATIVE [facility] Comment on above: Performed By: #### E RUR #### [facility] [address] [place] [address] Dr. Grzegorz Wang MITZY Negative Normal NEGATIVE [facility] Comment on above: Performed By: #### E RUR #### [facility] [address] [place] [address] Dr. Grzegorz Wang CUT-OFFS SEE BELOW Normal [facility] Comment on above: Result Comment: AMP [...] ng/mL Performed By: #### E RUR #### [facility] [address] [place] [address] Dr. Grzegorz Wang DRUG CUT HEADER DRUG CLASS TEST SYSTEM CUT-OFF CONCENTRATIONS ARE FOLLOWS: Normal [facility] Comment on above: Performed By: #### E RUR #### [facility] [address] [place] [address] Dr. Grzegorz Wang mAMP Negative Normal NEGATIVE [facility] Comment on above: Performed By: #### E RUR #### [facility] [address] [place] [address] Dr. Grzegorz Wang MTD Negative Normal NEGATIVE [facility] Comment on above: Performed By: #### E RUR #### [facility] [address] [place] [address] Dr. Grzegorz Wang OPI Negative Normal NEGATIVE [facility] Comment on above: Performed By: #### E RUR #### [facility] [address] [place] [address] Dr. Grzegorz Wang OXY Negative Normal NEGATIVE [facility] Comment on above: Performed By: #### E RUR #### [facility] [address] [place] [address] Dr. Grzegorz Wang PCP Negative Normal NEGATIVE [facility] Comment on above: Performed By: #### E RUR #### [facility] [address] [place] [address] Dr. Grzegorz Wang PPX Negative Normal NEGATIVE [facility] Comment on above: Performed By: #### E RUR #### [facility] [address] [place] [address] Dr. Grzegorz Wang TCA Positive Abnormal NEGATIVE [facility] Comment on above: Performed By: #### E RUR #### [facility] [address] [place] [address] Dr. Grzegorz Wang THC Negative Normal NEGATIVE [facility] Comment on above: Performed By: #### E RUR #### [facility] [address] [place] [address] Dr. Grzegorz Wang LACTATE/LACTIC ACIDon 2021 Lactate [Moles/Vol] 0.7 mmol/L Normal 0.4-1.9 [place] Comment on above: Performed By: #### E RUR #### [facility] [address] [place] [address] Dr. Grzegorz Wang PROF 14(COMP METB)on 022 Albumin [Mass/Vol] 3.1 g/dL Critically low 3.4-5.0 [facility] Comment on above: Performed By: #### C BC #### [facility] [address] [place] [address] Dr. Grzegorz Wang Albumin/Globulin [Mass ratio] 1.0 {ratio} Normal [facility] Comment on above: Performed By: #### C BC #### [facility] [address] [place] [address] Dr. Grzegorz Wang ALP [Catalytic activity/Vol] 81 U/L Normal 46-116 [facility] Comment on above: Performed By: #### C BC #### [facility] [address] [place] [address] Dr. Grzegorz Wang ALT [Catalytic activity/Vol] 21 U/L Normal 14-59 [facility] Comment on above: Performed By: #### C BC #### [facility] [address] [place] [address] Dr. Grzegorz Wang Anion gap [Moles/Vol] 11.9 mmol/L Normal [facility] Comment on above: Performed By: #### C BC #### [facility] [address] [place] [address] Dr. Grzegorz Wang AST [Catalytic activity/Vol] 21 U/L Normal 15-37 [facility] Comment on above: Performed By: #### C BC #### [facility] [address] [place] [address] Dr. Grzegorz Wang Bilirubin [Mass/Vol] 0.5 mg/dL Normal 0.2-1.0 [facility] Comment on above: Performed By: #### C BC #### [facility] [address] [address] [address] Grzegorz Wang Calcium [Mass/Vol] 8.3 mg/dL Critically low 8.5-10.1 [facility] Comment on above: Performed By: #### C BC #### [facility] [address] [address] [address] Grzegorz Wang Chloride [Moles/Vol] 100 mmol/L Normal 98-107 [facility] Comment on above: Performed By: #### C BC #### [facility] [address] [address] [address] Grzegorz Wang CO2 [Moles/Vol] 25.6 mmol/L Normal 21.0-32.0 [facility] Comment on above: Performed By: #### C BC #### [facility] [address] [place] [address] Dr. Grzegorz Wang Creatinine [Mass/Vol] 1.39 mg/dL Critically high 0.55-1.02 [facility] Comment on above: Performed By: #### C BC #### [facility] [address] [address] [address] Grzegorz Wang EGFR-AF GAMBIAN 45 mL/min/1.73m2 Critically low >=60 [facility] Comment on above: Performed By: #### C BC #### [facility] [address] [address] [address] Grzegorz Wang EGFR-NON AF GAMBIAN 37 mL/min/1.73m2 Critically low >=60 [facility] Comment on above: Performed By: #### C BC #### [facility] [address] [address] [address] Grzegorz Wang Globulin (S) [Mass/Vol] 3.1 g/dL Normal T [facility] Comment on above: Performed By: #### C BC #### [facility] [address] [address] [address] Grzegorz Wang Glucose [Mass/Vol] 96 mg/dL Normal 74-106 [facility] Comment on above: Performed By: #### C BC #### [facility] [address] [address] [address] Grzegorz Wang Potassium [Moles/Vol] 3.5 mmol/L Normal 3.5-5.1 [facility] Comment on above: Performed By: #### C BC #### [facility] [address] [address] [address] Grzegorz Wang Protein [Mass/Vol] 6.2 g/dL Critically low 6.4-8.2 [facility] Comment on above: Performed By: #### C BC #### [facility] [address] [address] [address] Grzegorz Wang Sodium [Moles/Vol] 134 mmol/L Critically low 136-145 [facility] Comment on above: Performed By: #### C BC #### [facility] [address] [place] [address] Dr. Grzegorz Wang Urea nitrogen [Mass/Vol] 33.0 mg/dL Critically high 7.0-18.0 [facility] Comment on above: Performed By: #### C BC #### [facility] [address] [address] [address] Grzegorz Wang Urea nitrogen/Creatinine [Mass ratio] 23.7 mg/mg Normal [facility] Comment on above: Performed By: #### C BC #### [facility] [address] [place] [address] Dr. Grzegorz Wang PROTIMEon 09-02-2021 INR Coag (PPP) [Relative time] {INR} Normal [facility] Comment on above: Performed By: #### A BRAYDEN LIPA #### [facility] [address] [place] [address] Dr. Grzegorz Wang INR GUIDELINES SEE BELOW Normal [facility] Comment on above: Result Comment: DENTON RED INR: 2.0 - 3.0 CONDITIONS NOT LISTED BELOW 2.5 - 3.5 FOR PROSTHETIC HEART VALVE REPLACEMENT 2.5 - 3.5 RECURRENT THROMBOSIS Performed By: #### A BRAYDEN LIPA #### [facility] [address] [place] [address] Dr. Grzegorz Wang PT Coag (PPP) [Time] 10.0 s Normal 9.0-11.6 [facility] Comment on above: Performed By: #### A PHIL OWEN #### [facility] [address] [place], [place] [address] Dr. Grzegorz Wang PTTon 09-02-2021 aPTT Coag (Bld) [Time] 32.1 s Normal 22.3-36.2 [facility] Comment on above: Performed By: #### A PHIL OWEN #### [facility] [address] [place], [place] [address] Dr. Grzegorz Wang XR CHEST 1 Von [...] by: NATACHA CERNA Date: 2021-09-02 19:18 Normal [facility] XR hand RT min 3V*on 022 XR hand RT min 3V* [facility] [employer] Other XR hand RT min 3V* [facility] [place] [facility] [employer] Other XR hand RT min 3V* [address] [place] [address] [employer] Other XR hand RT min 3V* [place] [address] [employer] Other XR hand RT min 3V* XRay Report [employer] Other XR hand RT min 3V* Signed [employer] Other XR hand RT min 3V* Patient: Ozzie Gifford MR#: [id number] [employer] Other XR hand RT min 3V* [id number] [employer] Other XR hand RT min 3V* : 1950 Acct:[id number] [employer] Other XR hand RT min 3V* Age/Sex: 71 / F ADM Date: 08/02/21 [employer] Other XR hand RT min 3V* Loc: [facility] Room: Type : [facility] [employer] Other XR hand RT min 3V* Attending Dr: Neeraj Arrington MD [employer] Other XR hand RT min 3V* Copies to: Susie Arrington MD [employer] Other XR hand RT min 3V* Ordering Provider: Susie Arrington MD [employer] Other XR hand RT min 3V* Date of Service: 08/02/21 [employer] Other XR hand RT min 3V* XR/XR hand RT min 3V*: Closed nondisplaced fracture of proximal phalanx [employer] Other XR hand RT min 3V* of right mi [employer] Other XR hand RT min 3V* 4 viewsRIGHT hand plain film [employer] Other XR hand RT min 3V* COMPARISON:07/12/21 [employer] Other XR hand RT min 3V* HISTORY:Status post RIGHT long finger proximal phalanx fracture [employer] Other XR hand RT min 3V* No bony alignment stable. No interval healing. Extensive degeneration. [employer] Other XR hand RT min 3V* XR/XR hand RT min 3V* [employer] Other XR hand RT min 3V* IMPRESSION:Stable findings [employer] Other XR hand RT min 3V* Impression dictated by: Husam Martinez M.D.08/02/2021 12:13 PM [employer] Other XR hand RT min 3V* Dictation Location: RADIO-PC-[facility] [email or web address] Other XR hand RT min 3V* Transcribed By: PWS 08/02/21 121 [place] [employer] Other XR hand RT min 3V* Dictated By: Husam Martinez DO 08/02/21 1210 [place] [employer] Other XR hand RT min 3V* Signed By: [employer] Other XR hand RT min 3V* 08/02/21 12[address] [facility] [employer] Other BNPon 07-29-2021 Natriuretic peptide B (Bld) [Mass/Vol] 192.0 pg/mL Normal <=900.0 [facility] Comment on above: Performed By: #### E RUR #### [facility] [address] [place] [address] Dr. Grzegorz Wang CARDIAC BAMBI ADMITon 022 CK [Catalytic activity/Vol] 82 U/L Normal 26-192 [facility] Comment on above: Performed By: #### E RUR #### [facility] [address] [place] [address] Dr. Grzegorz Wang CK.MB [Mass/Vol] 2.40 ng/mL Normal <=3.60 [facility] [place] [facility] Comment on above: Performed By: #### E RUR #### [facility] [address] [place] [address] Dr. Grzegorz Wang HSTROP 4.7 pg/mL Normal 4.0-51.3 [facility] Comment on above: Result Comment: CUT- OFF POINTS HAVE BEEN ESTABLISHED BASED ON THE FOURTH UNIVERSAL DEFINITIONS OF MYOCARDIAL INFARCTION. THE UPPER REFERENCE LIMIT (URL) OF TROPONIN, DEFINED THE 99TH PERCENTILE OF cTnI DISTRIBUTION IN A REFERENCE POPULATION, HAS BEEN CONFIRMED THE DECISION THRESHOLD FOR [place] DIAGNOSIS. Performed By: #### E RUR #### [facility] [address] [place] [address] Dr. Grzegorz Wang MITZI 70 ng/mL Normal 9-82 [facility] Comment on above: Performed By: #### E RUR #### [facility] [address] [place] [address] Dr. Grzegorz Wang CBC AUTO DIFFon 07-29-2021 BASO # 0.0 103/ul Normal 0.0-0.1 [facility] Comment on above: Performed By: #### E RUR #### [facility] [address] [place] [address] Dr. Grzegorz Wang Basophils/100 WBC (Bld) 0.7 % Normal 0.2-2.0 [facility] Comment on above: Performed By: #### E RUR #### [facility] [address] [place] [address] Dr. Grzegorz Wang EO # 0.2 103/ul Normal 0.0-0.7 [facility] Comment on above: Performed By: #### E RUR #### [facility] [address] [place] [address] Dr. Grzegorz Wang Eosinophils/100 WBC (Bld) 4.1 % Normal 0.9-7.0 [facility] Comment on above: Performed By: #### E RUR #### [facility] [address] [place] [address] Dr. Grzegorz Wang Erythrocyte distribution width (RBC) [Ratio] 15.7 % Critically high 11.0-15.0 [facility] Comment on above: Performed By: #### E RUR #### [facility] [address] [place] [address] Dr. Grzegorz Wang Hematocrit (Bld) [Volume fraction] 32.6 % Critically low 36.0-48.0 [facility] Comment on above: Performed By: #### E RUR #### [facility] [address] [place] [address] Dr. Grzegorz Wang Hemoglobin (Bld) [Mass/Vol] 9.9 g/dL Critically low 12.0-16.0 [facility] Comment on above: Performed By: #### E RUR #### [facility] [address] [place] [address] Dr. Grzegorz Wang IG # 0.02 10e3/ul Normal 0.00-0.03 [facility] Comment on above: Performed By: #### E RUR #### [facility] [address] [place] [address] Dr. Grzegorz Wang IG % 0.3 % Normal 0.0-0.5 [facility] Comment on above: Performed By: #### E RUR #### [facility] [address] [place] [address] Dr. Grzegorz Wang LYMPH # 1.7 103/ul Normal 1.2-3.8 [facility] Comment on above: Performed By: #### E RUR #### [facility] [address] [place] [address] Dr. Grzegorz Wang Lymphocytes/100 WBC (Bld) 28.0 % Normal 20.5-60.0 [facility] Comment on above: Performed By: #### E RUR #### [facility] [address] [place] [address] Dr. Grzegorz Wang MANUAL DIFF REQ NO Normal [facility] Comment on above: Performed By: #### E RUR #### [facility] [address] [place] [address] Dr. Grzegorz Wang MCH (RBC) [Entitic mass] 23.9 pg Critically low 26.7-34.0 [facility] Comment on above: Performed By: #### E RUR #### [facility] [address] [place] [address] Dr. Grzegorz Wang MCHC (RBC) [Mass/Vol] 30.4 g/dL Normal 29.9-35.2 [facility] Comment on above: Performed By: #### E RUR #### [facility] [address] [place] [address] Dr. Grzegorz Wang MCV (RBC) [Entitic vol] 78.7 fL Critically low 81.0-99. 0 [facility] Comment on above: Performed By: #### E RUR #### [facility] [address] [place] [address] Dr. Grzegorz Wang MONO # 0.6 103/ul Normal 0.3-0.8 [facility] Comment on above: Performed By: #### E RUR #### [facility] [address] [place] [address] Dr. Grzegorz Wang Monocytes/100 WBC (Bld) 10.4 % Normal 1.7-12.0 [facility] Comment on above: Performed By: #### E RUR #### [facility] [address] [place] [address] Dr. Grzegorz Wang NEUT # 3.3 103/ul Normal 1.4-6.5 [facility] Comment on above: Performed By: #### E RUR #### [facility] [address] [place] [address] Dr. Grzegorz Wang Neutrophils/100 WBC (Bld) 56.5 % Normal 43.0-75.0 [facility] Comment on above: Performed By: #### E RUR #### [facility] [address] [place] [address] Dr. Grzegorz Wang Platelet mean volume (Bld) [Entitic vol] 10.2 fL Normal 9.5-13.5 [facility] Comment on above: Performed By: #### E RUR #### [facility] [address] [place] [address] Dr. Grzegorz Wang PLT 216 103/ul Normal 150-450 [facility] Comment on above: Performed By: #### E RUR #### [facility] [address] [place] [address] Dr. Grzegorz Wang RBC 4.14 106/ul Critically low 4.20-5.40 [facility] Comment on above: Performed By: #### E RUR #### [facility] [address] [place] [address] Dr. Grzegorz Wang WBC 5.9 103/ul Normal 4.0-11.0 [facility] Comment on above: Performed By: #### E RUR #### [facility] [address] [place] [address] HEAD WO CONon [...] by: DORIAN GREENE Date: 2021-07-29 15:01 Normal [facility] ER URINE PROFILEon 2 Bilirubin Ql (U) Negative Normal NEGATIVE [facility] Comment on above: Performed By: #### E RUR #### [facility] [address] [place] [address] Dr. Grzegorz Wang Clarity (U) CLEAR Normal CLEAR [facility] Comment on above: Performed By: #### E RUR #### [facility] [address] [place] [address] Dr. Grzegorz Wang Color (U) LT. YELLOW Normal YELLOW [facility] Comment on above: Performed By: #### E RUR #### [facility] [address] [place] [address] Dr. Grzegorz Wang ERUDAVIDD A micrscopic examination will be performed if indicated. Normal [facility] Comment on above: Performed By: #### E RUR #### [facility] [address] [place] [address] Dr. Grzegorz Wang Glucose Ql (U) Negative Normal NEGATIVE [facility] Comment on above: Performed By: #### E RUR #### [facility] [address] [place] [address] Dr. Grzegorz Wang Hemoglobin Ql (U) Negative Normal NEGATIVE [facility] Comment on above: Performed By: #### E RUR #### [facility] [address] [place] [address] Dr. Grzegorz Wang Ketones Ql (U) Negative Normal NEGATIVE [facility] Comment on above: Performed By: #### E RUR #### [facility] [address] [place] [address] Dr. Grzegorz Wang LEUKOCYTES Negative Normal NEGATIVE [facility] Comment on above: Performed By: #### E RUR #### [facility] [address] [place] [address] Dr. Grzegorz Wang Nitrite Ql (U) Negative Normal NEGATIVE [facility] Comment on above: Performed By: #### E RUR #### [facility] [address] [place] [address] Dr. Grzegorz Wang pH (U) 5.5 [pH] Normal 5-9 [facility] Comment on above: Performed By: #### E RUR #### [facility] [address] [place] [address] Dr. Grzegorz Wang SPEC GRAVITY 1.010 Normal 1.005-<=1.0 25 [facility] Comment on above: Performed By: #### E RUR #### [facility] [address] [place] [address] Dr. Grzegorz Wang UA PROTEIN Negative Normal NEGATIVE/ TRACE [facility] Comment on above: Performed By: #### E RUR #### [facility] [address] [place] [address] Dr. Grzegorz Wang UR MICRO IND NOT INDICATED Normal [facility] Comment on above: Performed By: #### E RUR #### [facility] [address] [place] [address] Dr. Grzegorz Wang Urobilinogen Qn (U) 0.2 {Lidya'U}/dL Normal 0.2 - 1. 0 [facility] Comment on above: Performed By: #### E RUR #### [facility] [address] [place] [address] Dr. Grzegorz Wang PROF 14(COMP METB)on 022 Albumin [Mass/Vol] 3.1 g/dL Critically low 3.4-5.0 [facility] Comment on above: Performed By: #### E RUR #### [facility] [address] [place] [address] Dr. Grzegorz Wang Albumin/Globulin [Mass ratio] 1.0 {ratio} Normal [facility] Comment on above: Performed By: #### E RUR #### [facility] [address] [address] [address] Grzegorz Wang ALP [Catalytic activity/Vol] 99 U/L Normal 46-116 [facility] Comment on above: Performed By: #### E RUR #### [facility] [address] [address] [address] Grzegorz Wang ALT [Catalytic activity/Vol] 18 U/L Normal 14-59 [facility] Comment on above: Performed By: #### E RUR #### [facility] [address] [address] [address] Grzegorz Wang Anion gap [Moles/Vol] 10.5 mmol/L Normal [facility] Comment on above: Performed By: #### E RUR #### [facility] [address] [place] [address] Dr. Grzegorz Wang AST [Catalytic activity/Vol] 14 U/L Critically low 15-37 [facility] Comment on above: Performed By: #### E RUR #### [facility] [address] [address] [address] Grzegorz Wang Bilirubin [Mass/Vol] 0.3 mg/dL Normal 0.2-1.0 [facility] Comment on above: Performed By: #### E RUR #### [facility] [address] [address] [address] Grzegorz Wang Calcium [Mass/Vol] 8.5 mg/dL Normal 8.5-10.1 [facility] Comment on above: Performed By: #### E RUR #### [facility] [address] [address] [address] Grzegorz Wang Chloride [Moles/Vol] 108 mmol/L Critically high 98-107 [facility] Comment on above: Performed By: #### E RUR #### [facility] [address] [address] [address] Grzegorz Wang CO2 [Moles/Vol] 26.0 mmol/L Normal 21.0-32.0 [facility] Comment on above: Performed By: #### E RUR #### [facility] [address] [address] [address] Grzegorz Wang Creatinine [Mass/Vol] 1.07 mg/dL Critically high 0.55-1.02 [facility] Comment on above: Performed By: #### E RUR #### [facility] [address] [address] [address] Grzegorz Wang EGFR-AF GAMBIAN >60 Normal >=60 [facility] Comment on above: Performed By: #### E RUR #### [facility] [address] [address] [address] Grzegorz Wang EGFR-NON AF GAMBIAN 50 mL/min/1.73m2 Critically low >=60 [facility] Comment on above: Performed By: #### E RUR #### [facility] [address] [address] [address] Grzegorz Wang Globulin (S) [Mass/Vol] 3.0 g/dL Normal T [facility] Comment on above: Performed By: #### E RUR #### [facility] [address] [address] [address] Grzegorz Wang Glucose [Mass/Vol] 87 mg/dL Normal 74-106 [facility] Comment on above: Performed By: #### E RUR #### [facility] [address] [address] [address] Grzegorz Wang Potassium [Moles/Vol] 3.5 mmol/L Normal 3.5-5.1 [facility] Comment on above: Performed By: #### E RUR #### [facility] [address] [address] [address] Grzegorz Wang Protein [Mass/Vol] 6.1 g/dL Critically low 6.4-8.2 [facility] Comment on above: Performed By: #### E RUR #### [facility] [address] [address] [address] Grzegorz Wang Sodium [Moles/Vol] 141 mmol/L Normal 136-145 [facility] Comment on above: Performed By: #### E RUR #### [facility] [address] [place] [address] Dr. Grzegorz Wang Urea nitrogen [Mass/Vol] 22.0 mg/dL Critically high 7.0-18.0 [facility] Comment on above: Performed By: #### E RUR #### [facility] [address] [place] [address] Dr. Grzegorz Wang Urea nitrogen/Creatinine [Mass ratio] 20.6 mg/mg Normal [facility] Comment on above: Performed By: #### E RUR #### [facility] [address] [place] [address] Dr. Grzegorz Wang PROTIMEon 07-29-2021 INR Coag (PPP) [Relative time] 0.99 {INR} Normal [facility] Comment on above: Performed By: #### P TT, PT #### [facility] [address] [place] [address] Dr. Grzegorz Wang INR GUIDELINES SEE BELOW Normal [facility] Comment on above: Result Comment: DENTON RED INR: 2.0 - 3.0 CONDITIONS NOT LISTED BELOW 2.5 - 3.5 FOR PROSTHETIC HEART VALVE REPLACEMENT 2.5 - 3.5 RECURRENT THROMBOSIS Performed By: #### P TT, PT #### [facility] [address] [place] [address] Dr. Grzegorz Wang PT Coag (PPP) [Time] 10.7 s Normal 9.0-11.6 [facility] Comment on above: Performed By: #### P TT, PT #### [facility] [address] [place] [address] Dr. Grzegorz Wang PTTon 07-29-2021 aPTT Coag (Bld) [Time] 31.0 s Normal 22.3-36.2 [facility] Comment on above: Performed By: #### P TT, PT #### [facility] [address] [place] [address] Dr. Grzegorz Wang XR CHEST 1 Von [...] by: NATACHA TO Date: 2021-07-29 14:54 Normal [facility] XR hand RT min 3V*on 022 XR hand RT min 3V* [facility] [email or web address] Other XR hand RT min 3V* [facility] [place] [facility] [employer] Other XR hand RT min 3V* [address] [place] [address] [employer] [employer] Other XR hand RT min 3V* [place] [address] [employer] Other XR hand RT min 3V* XRay Report [employer] Other XR hand RT min 3V* Signed [employer] Other XR hand RT min 3V* Patient: Ozzie Gifford MR#: [id number] [employer] Other XR hand RT min 3V* [id number] [employer] Other XR hand RT min 3V* : 1950 Acct:[id number] [employer] Other XR hand RT min 3V* Age/Sex: 71 / F ADM Date: 07/12/21 [employer] Other XR hand RT min 3V* Loc: [facility] Room: Type : [facility] [employer] Other XR hand RT min 3V* Attending Dr: Neeraj Arrington MD [employer] Other XR hand RT min 3V* Ordering Provider: Susie Arrington MD [employer] Other XR hand RT min 3V* Date of Service: 07/12/21 [employer] Other XR hand RT min 3V* XR/XR hand RT min 3V*: Right hand pain [employer] Other XR hand RT min 3V* Copies to: Susie Arrington MD [employer] Other XR hand RT min 3V* XR hand RT min 3V* 07/12/2021 10:43 AM [employer] Other XR hand RT min 3V* SIGNS AND SYMPTOMS: Fall, pain in right hand greatest in the right thumb with swelling [employer] Other XR hand RT min 3V* PROTOCOL: Frontal, lateral, and oblique radiographs of the right hand [employer] Other XR hand RT min 3V* COMPARISON: None [employer] Other XR hand RT min 3V* FINDINGS: [employer] Other XR hand RT min 3V* There is mild narrowing of the distal interphalangeal joints. There is a mild flexion deformity of [employer] Other XR hand RT min 3V* the fifth proximal interphalangeal joint. There is mild narrowing of the first metacarpophalangeal [employer] Other XR hand RT min 3V* junction with mild t o moderate degenerative change at the first carpometacarpal joint. There is no [employer] Other XR hand RT min 3V* evidence of acute displaced fracture. No evidence of dislocation. [employer] Other XR hand RT min 3V* XR/XR hand RT min 3V* [employer] Other XR hand RT min 3V* IMPRESSION: [employer] Other XR hand RT min 3V* No evidence of fracture. [employer] Other XR hand RT min 3V* Degenerative changes are noted, greatest in the thumb. [employer] Other XR hand RT min 3V* There is a mild flexion deformity of the fifth proximal interphalangeal joint. [employer] Other XR hand RT min 3V* Impression dictated by: Bambi Sung M.D.07/12/2021 12:29 PM [employer] Other XR hand RT min 3V* Dictation Location: [place] [address] [employer] Other XR hand RT min 3V* Transcribed By: SHYANN 07/12/21 122 [employer] Other XR hand RT min 3V* Dictated By: Bambi Sung II, MD 07/12/21 1228 [employer] Other XR hand RT min 3V* Signed By: [employer] Other XR hand RT min 3V* 07/12/[address] [place] [address] [employer] Other CBC AUTO DIFFon 05-08-2021 BASO # 0.1 103/ul Normal 0.0-0.1 [facility] Comment on above: Performed By: #### C BC #### [facility] [address] [place] [address] Dr. Grzegorz Wang Basophils/100 WBC (Bld) 0.8 % Normal 0.2-2.0 [facility] Comment on above: Performed By: #### C BC #### [facility] [address] [address] [address] Grzegorz Wang EO # 0.3 103/ul Normal 0.0-0.7 [facility] Comment on above: Performed By: #### C BC #### [facility] [address] [address] [address] Grzegorz Wang Eosinophils/100 WBC (Bld) 3.8 % Normal 0.9-7.0 [facility] Comment on above: Performed By: #### C BC #### [facility] [address] [place] [address] Dr. Grzegorz Wang Erythrocyte distribution width (RBC) [Ratio] 14.1 % Normal 11.0-15.0 [facility] Comment on above: Performed By: #### C BC #### [facility] [address] [place] [address] Dr. Grzegorz Wang Hematocrit (Bld) [Volume fraction] 34.4 % Critically low 36.0-48.0 [facility] Comment on above: Performed By: #### C BC #### [facility] [address] [place] [address] Dr. Grzegorz Wang Hemoglobin (Bld) [Mass/Vol] 10.4 g/dL Critically low 12.0-16.0 [facility] Comment on above: Performed By: #### C BC #### [facility] [address] [place] [address] Dr. Grzegorz Wang IG # 0.04 10e3/ul Critically high 0.00-0.03 [facility] Comment on above: Performed By: #### C BC #### [facility] [address] [place] [address] Dr. Grzegorz Wang IG % 0.5 % Normal 0.0-0.5 [facility] Comment on above: Performed By: #### C BC #### [facility] [address] [place] [address] Dr. Grzegorz Wang LYMPH # 1.7 103/ul Normal 1.2-3.8 [facility] Comment on above: Performed By: #### C BC #### [facility] [address] [place] [address] Dr. Grzegorz Wang Lymphocytes/100 WBC (Bld) 22.1 % Normal 20.5-60.0 [facility] Comment on above: Performed By: #### C BC #### [facility] [address] [place] [address] Dr. Grzegorz Wang MANUAL DIFF REQ NO Normal [facility] Comment on above: Performed By: #### C BC #### [facility] [address] [place] [address] Dr. Grzegorz Wang MCH (RBC) [Entitic mass] 25.6 pg Critically low 26.7-34.0 [facility] Comment on above: Performed By: #### C BC #### [facility] [address] [place] [address] Dr. Grzegorz Wang MCHC (RBC) [Mass/Vol] 30.2 g/dL Normal 29.9-35.2 [facility] Comment on above: Performed By: #### C BC #### [facility] [address] [place] [address] Dr. Grzegorz Wang MCV (RBC) [Entitic vol] 84.5 fL Normal 81.0-99.0 [facility] Comment on above: Performed By: #### C BC #### [facility] [address] [place] [address] Dr. Grzegorz Wang MONO # 0.8 103/ul Normal 0.3-0.8 [facility] Comment on above: Performed By: #### C BC #### [facility] [address] [place] [address] Dr. Grzegorz Wang Monocytes/100 WBC (Bld) 11.1 % Normal 1.7-12.0 [facility] Comment on above: Performed By: #### C BC #### [facility] [address] [place] [address] Dr. Grzegorz Wang NEUT # 4.7 103/ul Normal 1.4-6.5 [facility] Comment on above: Performed By: #### C BC #### [facility] [address] [place] [address] Dr. Grzegorz Wang Neutrophils/100 WBC (Bld) 61.7 % Normal 43.0-75.0 [facility] Comment on above: Performed By: #### C BC #### [facility] [address] [place] [address] Dr. Grzegorz Wang Platelet mean volume (Bld) [Entitic vol] 10.6 fL Normal 9.5-13.5 [facility] Comment on above: Performed By: #### C BC #### [facility] [address] [place], [place] [address] Dr. Grzegorz Wang PLT 281 103/ul Normal 150-450 [facility] Comment on above: Performed By: #### C BC #### [facility] [address] [place], [place] [address] Dr. Grzegorz Wang RBC 4.07 106/ul Critically low 4.20-5.40 [facility] Comment on above: Performed By: #### C BC #### [facility] [address] [place], [place] [address] Dr. Grzegorz Wang WBC 7.6 103/ul Normal 4.0-11.0 [facility] Comment on above: Performed By: #### C BC #### [facility] [address] [place], [place] [address] CHEST WO CONon [...] LUCI MARADIAGA Date: 2021-05-08 18:59 Normal [facility] CT HEAD WO CONon 05-08-2021 CT [...] MITZI LOWRY Date: 2021-05-08 17:27 Normal [facility] CT NECK ST WO CONon 05-09-19 [...] The parotid glands, parapharyngeal spaces and left cottrell operator spaces appear normal. A tiny amount of air in the venous system in the right parapharyngeal space and in the venous system of the right cottrell operator space. A tiny amount air in probably [...] space and venous system in the right cottrell operator space, likely iatrogenic. No abnormal fluid collection. Prior right carotid endarterectomy. 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 Electronically authenticated by: BASIM CABAN Date: 2021-05-08 19:23 Normal [facility] PROF CHEM 8 (BAS METB)on Anion gap [Moles/Vol] 12.3 mmol/L Normal [facility] Comment on above: Performed By: #### A BRAYDEN LIPA #### [facility] [address] [address] [address] Grzegorz Wang Calcium [Mass/Vol] 8.4 mg/dL Critically low 8.5-10.1 [facility] Comment on above: Performed By: #### A BRAYDEN LIPA #### [facility] [address] [address] [address] Grzegorz Wang Chloride [Moles/Vol] 108 mmol/L Critically high 98-107 [facility] Comment on above: Performed By: #### A BRAYDEN, LIPA #### [facility] [address] [address] [address] Grzegorz Wang CO2 [Moles/Vol] 25.9 mmol/L Normal 22.0-30.0 [facility] Comment on above: Performed By: #### A BRAYDEN, LIPA #### [facility] [address] [address] [address] Grzegorz Wang Creatinine [Mass/Vol] 1.18 mg/dL Critically high 0.52-1.04 [facility] Comment on above: Performed By: #### A MY, LIPA #### [facility] [address] [address] [address] Grzegorz Wang EGFR-AF GAMBIAN 55 mL/min/1.73m2 Critically low >=60 [facility] Comment on above: Performed By: #### A MY, LIPA #### [facility] [address] [address] [address] Grzegorz Wang EGFR-NON AF GAMBIAN 45 mL/min/1.73m2 Critically low >=60 [facility] Comment on above: Performed By: #### A MY, LIPA #### [facility] [address] [place] [address] Dr. Grzegorz Wang Glucose [Mass/Vol] 84 mg/dL Normal 74-106 [facility] Comment on above: Performed By: #### A BRAYDEN, LIPA #### [facility] [address] [place] [address] Dr. Grzegorz Wang Potassium [Moles/Vol] 3.2 mmol/L Critically low 3.4-5.0 [facility] Comment on above: Performed By: #### A BRAYDEN, LIPA #### [facility] [address] [place] [address] Dr. Grzegorz Wang Sodium [Moles/Vol] 143 mmol/L Normal 137-145 [facility] Comment on above: Performed By: #### A BRAYDEN, LIPA #### [facility] [address] [place] [address] Dr. Grzegorz Wang Urea nitrogen [Mass/Vol] 35.0 mg/dL Critically high 7.0-18.0 [facility] Comment on above: Performed By: #### A MY, LIPA #### [facility] [address] [place] [address] Dr. Grzegorz Wang Urea nitrogen/Creatinine [Mass ratio] 29.7 mg/mg Normal [facility] Comment on above: Performed By: #### A MY, LIPA #### [facility] [address] [place] [address] Dr. Grzegorz Wang XR PELVIS 1_2 VIEWSon [...] by: LUCI MARADIAGA Date: 2021-05-08 17:24 Normal [facility] XR wrist LT min 3V*on 2021 XR wrist LT min 3V* [facility] [email or web address] Other XR wrist LT min 3V* [facility] [email or web address] Other XR wrist LT min 3V* [address] [place] [address] [employer] Other XR wrist LT min 3V* [place] [address] [employer] Other XR wrist LT min 3V* XRay Report [facility] [employer] Other XR wrist LT min 3V* Signed [employer] Other XR wrist LT min 3V* Patient: Ozzie Gifford MR#: [id number] [place] [employer] Other XR wrist LT min 3V* [address] [employer] Other XR wrist LT min 3V* : 1950 Acct:[id number] [employer] Other XR wrist LT min 3V* Age/Sex: 70 / F ADM Date: 05/03/21 [employer] Other XR wrist LT min 3V* Loc: SOXD Room: Type : [facility] [employer] Other XR wrist LT min 3V* Attending Dr: Neeraj Arrington MD [employer] Other XR wrist LT min 3V* Ordering Provider: Susie Arrington MD [employer] Other XR wrist LT min 3V* Date of Service: 05/03/21 [employer] Other XR wrist LT min 3V* XR/XR wrist LT min 3V*: Other specified postprocedural states [employer] Other XR wrist LT min 3V* Copies to: Susie Arrington MD [employer] Other XR wrist LT min 3V* 4 viewsLEFT wrist plain film [employer] Other XR wrist LT min 3V* COMPARISON:03/31/21 [employer] Other XR wrist LT min 3V* HISTORY:Status post ORIF distal radius fracture [employer] Other XR wrist LT min 3V* No hardware failure. Adequate bony alignment. Healing distal radius fracture noted. [employer] Other XR wrist LT min 3V* XR/XR wrist LT min 3V* [employer] Other XR wrist LT min 3V* IMPRESSION:Healing distal radius fracture. No hardware failure. [employer] Other XR wrist LT min 3V* Impression dictated by: Husam Martinez M.D.05/03/2021 2:12 PM [employer] Other XR wrist LT min 3V* Dictation Location: [place] [address] [employer] Other XR wrist LT min 3V* Transcribed By: SHYANN 05/03/21 141 [employer] Other XR wrist LT min 3V* Dictated By: Husam Martinez DO 05/03/21 1411 [employer] Other XR wrist LT min 3V* Signed By: [employer] Other XR wrist LT min 3V* 05/03/21 1412 No rt [employer] Other XR FOREARM LT 2 VIEWSon 03-14 [...] by: MARYSE LANGFORD Date: 2021-03-30 20:17 Normal [facility] Cardiovascular Lab Reporton 03-03-2020 Cardiovascular Lab Report [facility] Patient Name: [facility] Ozzie MR #: [id number] Department of Physician: Donna Henderson M.D. Division of Service Date: 03/03/2020 Cardiology Birthdate: 1950 Adult Cardiovascular Room #: [address] [place] [address] Cardiovascular Laboratory Report FINAL IMPRESSION: 1. Moderate [...] femoral vein and artery was obtained. A 6-Peruvian 11 cm sheath was inserted in each. Difficulty exchanging the micropuncture kit for a 6-Peruvian sheath encountered for the arterial access site; [...] physiological assessment of the coronary lesions. A 6-Peruvian XB 3.5 guide catheter was advanced over [...] trauma. The guide catheter was removed. A 5-Peruvian JR4 guide catheter was advanced in and [...] Doty M.D. Date Trans: 03/03/2020 12:28 P/mmo [id number] cc: Nicolas Carrillo M.D. Heart Failure/ Transplant [facility] [address] [facility] [address], [employer] [address] [place] [facility] [address] [facility] [address] Normal [facility] Vital Signs Date Time Vital Sign Value Performing Clinician Facility 08-21-2023 13:01-0400 Blood Pressure Location JALEN DENTON [facility] 08-21-2023 13:01-0400 Diastolic blood pressure 68 mm[Hg] JALEN DENTON [facility] 08-21-2023 13:01-0400 Heart rate 62 /min JALEN DENTON [facility] 08-21-2023 13:01-0400 Respiratory rate 19 /min JALEN DENTON [facility] 08-21-2023 13:01-0400 Systolic blood pressure 130 mm[Hg] JALEN DENTON [facility] 08-08-2023 09:52-0400 Body height 154.94 cm MD Shaikh Day Work Phone: [facility] 08-08-2023 09:52-0400 Body mass index (BMI) [Ratio] 23.7 kg/m2 MD Shaikh Day Work Phone: [facility] 08-08-2023 09:52-0400 Body temperature 97.8 [degF] MD Shaikh Day Work Phone: [facility] 08-08-2023 09:52-0400 Body weight 57 kg MD Shaikh Day Work Phone: [facility] 08-08-2023 09:52-0400 Diastolic blood pressure 82 mm[Hg] MD Shaikh Day Work Phone: [facility] 08-08-2023 09:52-0400 Heart rate 78 /min MD Shaikh Day Work Phone: [facility] 08-08-2023 09:52-0400 Respiratory rate 16 /min MD Shaikh Day Work Phone: [facility] 08-08-2023 09:52-0400 SaO2% (BldA) [Mass fraction] 98 % MD Shaikh Day Work Phone: [facility] 08-08-2023 09:52-0400 Systolic blood pressure 124 mm[Hg] MD Shaikh Day Work Phone: [facility] 07-15-2023 12:39-0400 Blood Pressure Location Carmen Orzech [facility] [place] [facility] 07-15-2023 12:39-0400 Body temperature 97.88 [degF] Carmen Orzech [facility] [place] [facility] 07-15-2023 12:39-0400 Diastolic blood pressure 84 mm[Hg] Carmen Orzech [facility] 07-15-2023 12:39-0400 Heart rate 78 /min Carmen Orzech [facility] [place] [facility] 07-15-2023 12:39-0400 Systolic blood pressure 124 mm[Hg] Carmen Orzech [facility] [place] [facility] 05-11-2023 11:10-0400 Body height 154.94 cm MD Shaikh Day Work Phone: [facility] 05-11-2023 11:10-0400 Body mass index (BMI) [Ratio] 23.8 kg/m2 MD Shaikh Day Work Phone: [facility] 05-11-2023 11:10-0400 Body temperature 97.2 [degF] MD Shaikh Day Work Phone: [facility] 05-11-2023 11:10-0400 Body weight 57.15 kg MD Shaikh Day Work Phone: [facility] 05-11-2023 11:10-0400 Diastolic blood pressure 58 mm[Hg] MD Shaikh Day Work Phone: [facility] 05-11-2023 11:10-0400 Heart rate 58 /min MD Shaikh Day Work Phone: [facility] 05-11-2023 11:10-0400 Respiratory rate 16 /min MD Shaikh Day Work Phone: [facility] 05-11-2023 11:10-0400 SaO2% (BldA) [Mass fraction] 98 % MD Shaikh Day Work Phone: [facility] 05-11-2023 11:10-0400 Systolic blood pressure 106 mm[Hg] MD Shaikh Day Work Phone: [facility] 05-09-2023 09:49-0400 Body height 154.94 cm MD Shaikh Day Work Phone: [facility] 05-09-2023 09:49-0400 Body mass index (BMI) [Ratio] 23.8 kg/m2 MD Shaikh Day Work Phone: [facility] 05-09-2023 09:49-0400 Body temperature 97.6 [degF] MD Shaikh Day Work Phone: [facility] 05-09-2023 09:49-0400 Body weight 57.15 kg MD Shaikh Day Work Phone: [facility] 05-09-2023 09:49-0400 Diastolic blood pressure 70 mm[Hg] MD Shaikh Day Work Phone: [facility] 05-09-2023 09:49-0400 Heart rate 73 /min MD Shaikh Day Work Phone: [facility] 05-09-2023 09:49-0400 SaO2% (BldA) [Mass fraction] 97 % MD Shaikh Day Work Phone: [facility] 05-09-2023 09:49-0400 Systolic blood pressure 138 mm[Hg] MD Shaikh Day Work Phone: [facility] 04-13-2023 15:15-0500 Body temperature 98 [degF] MD Shaikh Day Work Phone: [facility] 04-13-2023 15:15-0500 Diastolic blood pressure 56 mm[Hg] MD Shaikh Day Work Phone: [facility] 04-13-2023 15:15-0500 Heart rate 76 /min MD Shaikh Day Work Phone: [facility] 04-13-2023 15:15-0500 Respiratory rate 17 /min MD Shaikh Day Work Phone: [facility] 04-13-2023 15:15-0500 SaO2% (BldA) [Mass fraction] 95 % MD Shaikh Day Work Phone: [facility] 04-13-2023 15:15-0500 Systolic blood pressure 100 mm[Hg] MD Shaikh Day Work Phone: [facility] 04-13-2023 04:48-0500 Body weight 62.9 kg MD Shaikh Day Work Phone: [facility] 04-12-2023 13:07-0500 Body height 154.94 cm MD Shaikh Day Work Phone: [facility] 04-12-2023 11:49-0500 Inhaled oxygen flow rate 8 L/min MD Shaikh Day Work Phone: [facility] 04-12-2023 10:02-0500 Body mass index (BMI) [Ratio] 25.9 kg/m2 MD Shaikh Day Work Phone: [facility] 04-09-2023 09:48-0500 Body height 154.94 cm MD Shaikh Day Work Phone: [facility] 04-09-2023 09:48-0500 Body mass index (BMI) [Ratio] 29 kg/m2 MD Shaikh Day Work Phone: [facility] 04-09-2023 09:48-0500 Body temperature 97.6 [degF] MD Shaikh Day Work Phone: [facility] 04-09-2023 09:48-0500 Body weight 69.85 kg MD Shaikh Day Work Phone: [facility] 04-09-2023 09:48-0500 Diastolic blood pressure 66 mm[Hg] MD Shaikh Day Work Phone: [facility] 04-09-2023 09:48-0500 Heart rate 76 /min MD Shaikh Day Work Phone: [facility] 04-09-2023 09:48-0500 Respiratory rate 16 /min MD Shaikh Day Work Phone: [facility] 04-09-2023 09:48-0500 SaO2% (BldA) [Mass fraction] 98 % MD Shaikh Day Work Phone: [facility] 04-09-2023 09:48-0500 Systolic blood pressure 114 mm[Hg] MD Shaikh Day Work Phone: [facility] 03-20-2023 12:52-0500 Body height 152.4 cm Georges Garcia MD Work Phone: [facility] 03-20-2023 12:52-0500 Body mass index (BMI) [Ratio] 26.95 kg/m2 Georges Garcia MD Work Phone: [facility] [employer] [facility] 03-20-2023 12:52-0500 Body weight 62.6 kg Georges Garcia MD Work Phone: [facility] [employer] [facility] 03-20-2023 12:52-0500 Diastolic blood pressure 65 mm[Hg] Georges Garcia MD Work Phone: [facility] [employer] [facility] 03-20-2023 12:52-0500 Heart rate 67 /min Georges Garcia MD Work Phone: [facility] [employer] 03-20-2023 12:52-0500 Systolic blood pressure 144 mm[Hg] Georges Garcia MD Work Phone: [facility] [employer] [facility] 03-07-2023 10:48-0500 Blood Pressure [facility] [place] [facility] 03-07-2023 10:48-0500 Diastolic blood pressure 80 mm[Hg] Carmen Orzech [facility] 03-07-2023 10:48-0500 Heart rate 80 /min Carmen Orzech [facility] 03-07-2023 10:48-0500 Systolic blood pressure 118 mm[Hg] Carmen Orzech [facility] 12-26-2022 12:10-0500 Diastolic blood pressure 70 mm[Hg] MD Shaikh Day Work Phone: [facility] 12-26-2022 12:10-0500 Systolic blood pressure 144 mm[Hg] MD Shaikh Day Work Phone: [facility] 10-16-2022 14:10-0400 Body height 154.94 cm Kori Temple Other [facility] [email or web address] Other 10-16-2022 14:10-0400 Body mass index (BMI) [Ratio] 26.53 kg/m2 Kori Temple Other [facility] [email or web address] Other 10-16-2022 14:10-0400 Body temperature 98.1 [degF] Kori Temple Other [employer] [facility] [email or web address] Other 10-16-2022 14:10-0400 Body weight 63.69 kg Kori Temple Other [employer] Other 10-16-2022 14:10-0400 Diastolic blood pressure 81 mm[Hg] Kori Temple Other [place] [employer] Other 10-16-2022 14:10-0400 Respiratory rate 18 /min Kori Treviñoley Other [employer] Other 10-16-2022 14:10-0400 SaO2% (BldA) [Mass fraction] 98 % Kori Treviñoley Other [employer] Other 10-16-2022 14:10-0400 Systolic blood pressure 139 mm[Hg] Kori Treviñoley Other [employer] Other 04-04-2022 09:30-0500 Body height 154.94 cm Denver Juarez Other [employer] Other 04-04-2022 09:30-0500 Body mass index (BMI) [Ratio] 28.72 kg/m2 Denver Juarez Other [employer] Other 04-04-2022 09:30-0500 Body temperature 97.8 [degF] Denver Juarez Other [employer] Other 04-04-2022 09:30-0500 Body weight 68.95 kg Denver Juarez Other [employer] Other 04-04-2022 09:30-0500 Diastolic blood pressure 72 mm[Hg] Denver Juarez Other [employer] Other 04-04-2022 09:30-0500 SaO2% (BldA) [Mass fraction] 98 % Denver Juarez Other [employer] Other 04-04-2022 09:30-0500 Systolic blood pressure 116 mm[Hg] Denver Juarez Other [employer] Other 11-22-2021 12:12-0400 Body temperature 97.9 [degF] MD Shaikh Day Work Phone: [facility] 11-22-2021 12:12-0400 Diastolic blood pressure 82 mm[Hg] MD Shaikh Day Work Phone: [facility] 11-22-2021 12:12-0400 Heart rate 95 /min MD Shaikh Day Work Phone: [facility] 11-22-2021 12:12-0400 Respiratory rate 16 /min MD Shaikh Day Work Phone: [facility] 11-22-2021 12:12-0400 SaO2% (BldA) [Mass fraction] 98 % MD Shaikh Day Work Phone: [facility] 11-22-2021 12:12-0400 Systolic blood pressure 151 mm[Hg] MD Shaikh Day Work Phone: [facility] 11-22-2021 04:04-0400 Body weight 78.6 kg MD Shaikh Day Work Phone: [facility] 11-21-2021 17:12-0400 Body height 157.48 cm MD Shaikh Day Work Phone: [facility] 11-21-2021 13:57-0400 Diastolic blood pressure 56 mm[Hg] MD Shaikh Day Work Phone: [facility] 11-21-2021 13:57-0400 Heart rate 77 /min MD Shaikh Day Work Phone: [facility] 11-21-2021 13:57-0400 Respiratory rate 16 /min MD Shaikh Day Work Phone: [facility] 11-21-2021 13:57-0400 SaO2% (BldA) [Mass fraction] 95 % MD Shaikh Day Work Phone: [facility] 11-21-2021 13:57-0400 Systolic blood pressure 117 mm[Hg] MD Shaikh Day Work Phone: [facility] 11-21-2021 11:24-0400 Body temperature 96.9 [degF] MD Shaikh Day Work Phone: [facility] 11-21-2021 03:56-0400 Body height 157.48 cm MD Shaikh Day Work Phone: [facility] 11-21-2021 03:56-0400 Body weight 75.9 kg MD Shaikh Day Work Phone: [facility] 09-27-2021 10:15-0400 Body height 154.94 cm Denver Juarez Other [employer] Other 09-27-2021 10:15-0400 Body mass index (BMI) [Ratio] 35.9 kg/m2 Denver Juarez Other [employer] Other 09-27-2021 10:15-0400 Body temperature 96.2 [degF] Denver Juarez Other [employer] Other 09-27-2021 10:15-0400 Body weight 86.18 kg Denver Juarez Other [employer] Other 09-27-2021 10:15-0400 Diastolic blood pressure 52 mm[Hg] Denver Juarez Other [employer] Other 09-27-2021 10:15-0400 SaO2% (BldA) [Mass fraction] 97 % Denver Millernorah Other [employer] Other 09-27-2021 10:15-0400 Systolic blood pressure 110 mm[Hg] Denver Millernorah Other [employer] Other 09-22-2021 14:15-0400 Body height 154.94 cm Ilda Das Other [employer] Other 09-22-2021 14:15-0400 Body mass index (BMI) [Ratio] 35.9 kg/m2 Ilda Das Other [employer] Other 09-22-2021 14:15-0400 Body temperature 98.2 [degF] Ilda Das Other [employer] Other 09-22-2021 14:15-0400 Body weight 86.18 kg Ilda Das Other [employer] Other 09-22-2021 14:15-0400 Respiratory rate 18 /min Ilda Das Other [employer] Other 09-22-2021 14:15-0400 SaO2% (BldA) [Mass fraction] 98 % Ilda Das Other [employer] Other 09-20-2021 17:00-0400 Body height 154.94 cm Susie Rosaliachetan Other [employer] Other 09-20-2021 17:00-0400 Body mass index (BMI) [Ratio] 35.9 kg/m2 Susiejennifer Arringtno Other [employer] Other 09-20-2021 17:00-0400 Body weight 86.18 kg Susie Arrington Other [employer] Other 05-03-2021 11:45-0400 Body height 154.94 cm Susie Arrington Other [employer] Other 05-03-2021 11:45-0400 Body mass index (BMI) [Ratio] 35.9 kg/m2 Susie Arrington Other [employer] Other 05-03-2021 11:45-0400 Body weight 86.18 kg Susie Arrington Other [employer] Other 03-02-2021 10:00-0500 Body height 154.94 cm Denver Juarez Other [employer] Other 03-02-2021 10:00-0500 Body mass index (BMI) [Ratio] 36.27 kg/m2 Denver Juarez Other [employer] Other 03-02-2021 10:00-0500 Body temperature 96.5 [degF] Denver Juarez Other [employer] Other 03-02-2021 10:00-0500 Body weight 87.09 kg Denver Juarez Other [employer] Other 03-02-2021 10:00-0500 Diastolic blood pressure 58 mm[Hg] Denver Juarez Other [employer] Other 03-02-2021 10:00-0500 SaO2% (BldA) [Mass fraction] 99 % Denver Juarez Other [employer] Other 03-02-2021 10:00-0500 Systolic blood pressure 108 mm[Hg] Denver Juarez Other [employer] Other 12-01-2020 10:00-0400 Body height 154.94 cm Denver Larry Other [employer] Other 12-01-2020 10:00-0400 Body mass index (BMI) [Ratio] 36.27 kg/m2 Denver Larry Other [employer] Other 12-01-2020 10:00-0400 Body weight 87.09 kg Denver Larry Other [employer] Other 12-01-2020 10:00-0400 Diastolic blood pressure 79 mm[Hg] Denver Juarez Other [employer] Other 12-01-2020 10:00-0400 Systolic blood pressure 149 mm[Hg] Denver Larry Other [employer] Other 11-10-2020 10:30-0400 Body height 154.94 cm Denver Larry Other [employer] Other 11-10-2020 10:30-0400 Body mass index (BMI) [Ratio] 35.9 kg/m2 Denver Larry Other [employer] Other 11-10-2020 10:30-0400 Body weight 86.18 kg Denver Larry Other [employer] Other 11-10-2020 10:30-0400 Diastolic blood pressure 84 mm[Hg] Denver Juarez Other [employer] Other 11-10-2020 10:30-0400 Systolic blood pressure 150 mm[Hg] Denver Millernorah Other [facility] [email or web address] Other Encounters Encounter Date Encounter Type Care Provider Facility Start: 10-22-2023 End: 10-22-2023 ambulatory CINDY GREENE Not Available Start: 09-11-2023 End: 09-11-2023 ambulatory [facility] Start: 09-09-2023 End: 09-09-2023 ambulatory SHAIKH BARB Not Available Start: 08-21-2023 End: 08-21-2023 Patient encounter procedure JALEN DENTON [facility] Start: 08-21-2023 End: 08-21-2023 ambulatory SHAIKH BARB Not Available Start: 08-08-2023 End: 08-08-2023 ambulatory MD Shaikh Day Work Phone: [facility] Work Phone: Start: 08-08-2023 End: 08-08-2023 Patient encounter procedure MD Shaikh Day Work Phone: [facility] Vascular Surgery Work Phone: Start: 07-15-2023 End: 07-15-2023 ambulatory Camren X Orzech Facility:[facility] Start: 07-15-2023 End: 07-15-2023 Lab Drop off Carmen X Orzech [facility] Start: 07-15-2023 End: 07-15-2023 ambulatory Carmen X Orzech Facility:[facility] Start: 07-15-2023 End: 07-15-2023 Patient encounter procedure Carmen X Orzech [facility] Start: 07-02-2023 End: 07-02-2023 ambulatory [facility] Start: 2023 End: 2023 ambulatory DE OLIVEIRA BARB Not Available Start: 05-15-2023 End: 05-15-2023 ambulatory SHAIKH BARB Not Available Start: 05-12-2023 End: 05-12-2023 ambulatory Hannah Still Facility:[facility] Start: 05-12-2023 End: 05-12-2023 Patient encounter procedure 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-C Hannah Still Work Phone: [facility] Work Phone: Start: 05-12-2023 End: 05-12-2023 ambulatory Hannah Still [facility] Work Phone: Start: 05-11-2023 End: 05-11-2023 ambulatory MD Shaikh Day Work Phone: [facility] Work Phone: Start: 05-11-2023 End: 05-11-2023 Patient encounter procedure MD Shaikh Day Work Phone: [facility] Work Phone: Start: 05-09-2023 End: 05-09-2023 ambulatory MD Shaikh Day Work Phone: [facility] Work Phone: Start: 05-09-2023 End: 05-09-2023 Patient encounter procedure MD Shaikh Day Work Phone: [facility] V[facility] Work Phone: Start: 04-12-2023 Non-patient / Non-visit MD Shaikh Day Work Phone: [facility] Work Phone: Start: 04-12-2023 End: 04-13-2023 Evaluation and management of inpatient MD Shaikh Day Work Phone: [facility] Work Phone: Start: 04-10-2023 Telephone encounter [facility] Comment on above: Sooner Appt Start: 04-09-2023 End: 04-09-2023 Patient encounter procedure MD Shaikh Day Work Phone: [facility] Work Phone: Start: 04-09-2023 End: 04-09-2023 ambulatory Shaikh Barb Facility:[facility] Start: 03-28-2023 Orders Only Shaikh Barb VIDES Work Phone: [facility] Comment on above: Anxiety and depressi on (CMS/HCC) (Primary Dx) NEW PATIENT REFERRAL Start: 03-20-2023 End: 03-20-2023 ambulatory [facility] Start: 03-20-2023 End: 03-20-2023 Office outpatient new 45 minutes Georges Garcia MD Work Phone: [facility] Comment on above: Dizzy (Primary Dx); 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 (CMS-HCC); Dizziness Start: 03-14-2023 End: 03-14-[address] [facility] Start: 03-07-2023 End: 03-07-2023 ambulatory SHAIKH LEANDROCODY Facility:[facility] Start: 03-07-2023 End: 03-07-2023 Patient encounter procedure Carmen Quintero [facility] Start: 03-06-2023 End: 03-06-2023 ambulatory DE OLIVEIRA DEMETRIUSPRAKASH Not Available Start: 03-06-2023 ambulatory [facility] Start: 03-03-2023 ambulatory [facility] Start: 03-01-2023 End: 03-07-2023 Emergency department patient visit [facility] Start: 02-21-2023 ambulatory SHAIKH BARB Facility: [facility] Start: 02-20-2023 End: 02-20-2023 ambulatory DE OLIVEIRA BARB Not Available Start: 02-16-2023 ambulatory [facility] Start: 02-13-2023 End: 02-13-2023 ambulatory MEGHANN RAYMUNDO [facility] Start: 01-24-2023 Telephone encounter Charlette Burr [facility] Comment on above: paperwork Start: 01-21-2023 End: 01-21-2023 ambulatory MD Shaikh Day Work Phone: [facility] Work Phone: Start: 01-21-2023 End: 01-21-2023 Discharged Recurring MD Shaikh Day Work Phone: [facility]Physical Therapy [address] Start: 10-16-2022 End: 10-16-2022 ambulatory Kori Temple Other [employer] Other Start: 10-16-2022 Office outpatient visit 15 minutes Kori Temple [facility] Start: 04-04-2022 End: 04-04-2022 ambulatory Denver Juarez Other [employer] Other Start: 04-04-2022 Office outpatient visit 15 minutes Denver Juarez [facility] Start: 03-06-2022 End: 03-06-2022 ambulatory Earline Harris Other [employer] Other Start: 03-06-2022 Telephone encounter Earline Harris [facility] [address] Start: 03-02-2022 End: 03-02-2022 ambulatory MD Gerry Godwin Work Phone: [facility] Work Phone: Start: 03-02-2022 End: 03-02-2022 Departed Referred MD Gerry Godwin Work Phone: [facility] [place] Work Phone: Start: 02-21-2022 End: 02-22-2022 ambulatory MEGHANN RAYMUNDO Facility:[facility] Start: 02-20-2022 End: 02-21-2022 ambulatory DE OLIVEIRA H FAWWAD Facility:[facility] Start: 01-31-2022 End: 02-01-2022 ambulatory DE OLIVEIRA H FAWWAD Facility:[facility] Start: 01-22-2022 End: 01-23-2022 ambulatory DE OLIVEIRA H FAWWAD Facility:[facility] Start: 01-18-2022 End: 01-19-[address] Facility:[facility] Start: 01-09-2022 End: 01-09-2022 ambulatory MD Shaikh Day Work Phone: [facility] Work Phone: Start: 01-09-2022 End: 01-09-2022 Discharged Recurring MD Shaikh Day Work Phone: [facility]-Speech Therapy [address] Start: 01-02-2022 End: 01-03-2022 ambulatory DE OLIVEIRA H FAWWAD Facility:[facility] Start: 12-07-2021 End: 12-08-2021 ambulatory DE OLIVEIRA H FAWWAD Facility:[facility] Start: 11-27-2021 End: 11-28-2021 ambulatory DE OLIVEIRA H FAWWAD Facility:[facility] Start: 11-26-2021 End: 11-26-2021 ambulatory DE OLIVEIRA H FAWWAD Facility:[facility] Start: 11-24-2021 End: 11-24-2021 Emergency department patient visit [address] [facility] Facility:[id number] Start: 11-21-2021 End: 11-22-2021 Evaluation and management of inpatient MD Shaikh Day Work Phone: [facility] Med Surg Start: 11-14-2021 Registered Recurring MD Shaikh Day Work Phone: [facility]Speech Therapy [address] Start: 10-31-2021 End: 10-31-2021 ambulatory Denver Larry Other [employer] Other Start: 10-31-2021 Telephone encounter Dnever Chanel [facility] Economics Professor Start: 10-24-2021 End: 10-25-2021 ambulatory SHAIKH Be DAY Facility:[facility] Start: 10-16-2021 End: 10-18-2021 Evaluation and management of inpatient SHAIKH Be DAY Facility:[facility] Start: 09-27-2021 End: 09-27-2021 ambulatory Denver Juarez Other [employer] Other Start: 09-27-2021 Office outpatient visit 15 minutes Denver Juarez [facility] Start: 09-22-2021 End: 09-22-2021 ambulatory Ilda Das Other [employer] Other Start: 09-22-2021 Office outpatient visit 15 minutes Ilda Das [facility] Start: 09-20-2021 End: 09-20-2021 ambulatory Susie Arrington Other [employer] Other Start: 09-20-2021 Office outpatient visit 10 minutes Susie Arrington [facility] Start: 09-02-2021 End: 09-02-2021 ambulatory SHAIKH Be DAY Facility:[facility] Start: 08-31-2021 End: 08-31-2021 Patient encounter procedure MD Shaikh Day Work Phone: [facility]Ultrasound [facility] Start: 08-29-2021 Registered Recurring MD Shaikh Day Work Phone: [facility]Speech Therapy [address] Start: 08-24-2021 ambulatory LIZ DAVID Facility :[facility] Start: 08-02-2021 End: 08-02-2021 ambulatory Susie Arrington Other [employer] Other Start: 08-02-2021 End: 08-02-2021 Patient encounter procedure Susie Murphy [facility] Start: 07-29-2021 End: 07-29-2021 ambulatory SHAIKH Be DAY Facility:[facility] Start: 07-12-2021 End: 07-12-2021 ambulatory Susiejennifer Arrington Other [employer] Other Start: 07-12-2021 Office outpatient visit 15 minutes Susie Rosaliaey [facility] Start: 07-12-2021 End: 07-12-2021 Patient encounter procedure MD Shaikh Day Work Phone: [facility] Start: 06-15-2021 End: 06-15-2021 Discharged Recurring MD Shaikh Day Work Phone: [facility]-Still Photographer [address] Start: 05-31-2021 End: 05-31-2021 ambulatory Susiejennifer Arrington Other [employer] Other Start: 05-31-2021 Postop follow up vis it related to original px Susie Calvey [facility] Start: 05-08-2021 End: 05-08-2021 ambulatory SHAIKH Be DAY Facility:[facility] Start: 05-03-2021 End: 05-03-2021 ambulatory Susie Murphy Other [employer] Other Start: 05-03-2021 Postop follow up vis it related to original px Susie Calvey [facility] Start: 03-30-2021 End: 03-31-2021 ambulatory SHAIKH Be DAY Facility:[facility] Start: 03-02-2021 End: 03-02-2021 ambulatory Denver Juarez Other [facility] [email or web address] Other Start: 03-02-2021 Office outpatient visit 15 minutes Denver Juarez [facility] Vascular Surgery Start: 12-01-2020 Office outpatient visit 25 minutes Denver Juarez [facility] V[facility] Surgery Start: 11-10-2020 Office outpatient visit 15 minutes Denver Juarez [facility] Vascular Surgery Procedures Date Procedure Procedure Detail Performing Clinician Start: 08-08-2023 Doppler ultrasonogra phy of bilateral carotid arteries MD Shaikh Day Work Phone: Start: 05-11-2023 Urine culture MD Shaikh Day Work Phone: Start: 04-09-2023 Doppler ultrasonogra phy of bilateral carotid arteries MD Shaikh Day Work Phone: Start: 03-20-2023 Adult depression scr eening assessment Марина Whiting Start: 11-21-2021 CT of head without contrast MD Shaikh Day Work Phone: Start: 11-21-2021 Plain chest X-ray MD Fab Day Work Phone: Start: 10-17-2021 Inspection of Upper Intestinal Tract, Via Natural or Artificial Opening Endoscopic LIZ LNAE Start: 10-16-2021 Transfusion of Nonau tologous Red Blood Cells into Peripheral Vein, Percutaneous Approach LIZ LANE Start: 08-31-2021 Doppler ultrasonogra phy of bilateral carotid arteries MD Shaikh Day Work Phone: Start: 08-02-2021 Plain X-ray of right hand MD Shaikh Day Work Phone: Start: 07-12-2021 Plain X-ray of right hand MD Shaikh Day Work Phone: Arthroplasty of knee Carmen Quintero Blood culture for ba cteria, including anaerobic screen MD Shaikh Day Work Phone: Breast surgery (qual ifier value) Carmen Quintero Bypass of stomach Carmen williamson Hysterectomy Carmen Quintero SARS-CoV-2, Influenz a & RSV (PCR) MD Shaikh Day Work Phone: Urine culture MD Shaikh Geovani dykes Work Phone: Plan of Treatment Date Care Activity Detail Author Start: 11-18-2030 DTaP,Tdap and Td Vaccines (2 - Tdap) DTaP,Tdap and Td Vaccines (2 - Tdap) [facility] Start: 03-20-2024 Adult BMI Screening Adult BMI Screening [facility] Start: 03-20-2024 Depression Screening Depression Screening [facility] Start: 03-20-2024 Tobacco Screening Tobacco Screening [facility] Start: 08-08-2023 Patient referral [facility] Work Phone: Start: 08-08-2023 Doppler ultrasonography of bilateral carotid arteries US carotid doppler BI [facility] Start: 07-02-2023 End: 07-02-2023 Patient encounter procedure 07/02/2023 9:00 AM EDT Office Visit [facility] [address] [place] [phone] Martin Espinosa MD [address] [place] [address], [address], [address], [address] [place] [address] [facility] Start: 2023 End: 2023 Patient encounter procedure 2023 6:30 PM EDT Office Visit [facility] [address] [place] [address] Shaikh Day MD [address] [place] [id number] [facility] Start: 05-11-2023 Bacteria identified in Urine by Culture [facility] Start: 04-13-2023 [facility] Start: 04-12-2023 Hospital admission [facility] Start: 04-12-2023 Cerebral Embolic Filtration, Extracorporeal Flow Reversal Circuit from Right Common Carotid Artery, Percutaneous Approach, [employer] Cerebral Embolic Filtration, Extracorporeal Flow Reversal Circuit from Right Common Carotid Artery, Percutaneous Approach, [employer] [facility] Start: 04-12-2023 Dilation of Right Internal Carotid Artery with Intraluminal Device, Open Approach Dilation of Right Internal Carotid Artery with Intraluminal Device, Open Approach [facility] Start: 03-12-2023 End: 03-12-2023 Patient encounter procedure 03/12/2023 10:00 AM EST Office Visit [facility] [address] [place] [phone] Alan Elmore MD [address] [place] [address], [address], [address] [place], [place] [id number] [facility] Start: 10-12-2022 COVID-19 Vaccine ( season) COVID-19 Vaccine ( season) [facility] [employer] [facility] Start: 03-02-2022 Bacteria identified in Urine by Culture Urine Culture [facility] Start: 11-22-2021 Comprehensive metabolic 2000 panel - Serum or Plasma [facility] Start: 11-22-2021 Magnesium measurement [facility] Start: 11-22-2021 End: 11-22-2021 [facility] Start: 11-21-2021 Patient referral to dietitian [facility] Start: 11-21-2021 Referral to core assembly supervisor [facility] Start: 11-21-2021 Hospital admission [facility] Start: 11-21-2021 Physical therapy procedure [facility] Start: 11-21-2021 Referral to occupational therapist [facility] Start: 11-21-2021 [facility] Start: 08-31-2021 Doppler ultrasonography of bilateral carotid arteries US carotid doppler BI [facility] Start: 08-31-2021 US.doppler Carotid arteries - bilateral [facility] Work Phone: Start: 2013 Fall Risk Screening Fall Risk Screening [facility] Start: 1998 Administration of varicella zoster vaccine Zoster (Shingles) Vaccine (1 of 2) [facility] Start: 1988 Screening for malignant neoplasm of breast Mammogram [facility] Start: 1966 Adult BMI Follow Up Plan Adult BMI Follow Up Plan [facility] Start: 1966 Adult BMI Screening Adult BMI Screening [facility] Start: 1960 Depression Screening Depression Screening [facility] Start: 1960 Tobacco Screening Tobacco Screening [facility] Start: 1948 Medicare Annual Wellness (AWV) Medicare Annual Wellness (AWV) [facility] Start: 1948 Medicare Annual Wellness Visit Medicare Annual Wellness Visit [facility] Start: 1948 Screening for malignant neoplasm of colon [facility] Bacteria identified in Blood by Culture [facility] Bacteria identified in Urine by Culture [facility] Blood culture for bacteria, including anaerobic screen Blood Culture [facility] Patient Education [facility] Work Phone: Patient referral [facility] Work Phone: Urine culture Urine Culture [facility] US.doppler Carotid arteries - [facility] US.doppler Carotid arteries - [facility] Immunizations Immunization Date Immunization Notes Care Provider [facility] 11-24-2022 influenza virus vaccine, unspecified formulation Carmen Quintero [facility] 11-24-2022 Influenza, Seasonal, Quadrivalent, Adjuvanted Shaikh Barb VIDES Work Phone: [facility] 11-24-2022 Pneumococcal Conjuga te PCV 20 Shaikh Barb VIDES Work Phone: [facility] 11-24-2022 RSV, recombinant, protein subunit RSVpreF, adjuvant reconstitu, 120mcg/0.5mL, PF (Arexvy) Shaikh Barb VIDES Work Phone: [facility] 01-20-2022 influenza virus vaccine, unspecified formulation Carmen Orzecb [facility] 01-20-2022 Influenza, Seasonal, Quadrivalent, Adjuvanted Shaikh Barb VIDES Work Phone: [facility] 11-26-2020 influenza virus vaccine, unspecified formulation Carmen Orzecb [facility] 11-26-2020 Influenza, Seasonal, Quadrivalent, Adjuvanted Shaikh Barb VIDES Work Phone: [facility] 11-18-2020 diphtheria, tetanus toxoids and pertussis vaccine Shaikh Barb VIDES Work Phone: [facility] 06-11-2020 COVID-19 [id number].[id number].S (Clarence) MD Shaikh Day Work Phone: [facility] 12-09-2019 influenza virus vaccine, unspecified formulation Carmen Orzecb [facility] 12-09-2019 Influenza, High-dose Seasonal, Quadrivalent, Preservative Free Shaikh Barb VIDES Work Phone: [facility] 12-22-2018 influenza virus vaccine, unspecified formulation Carmen Orvicky [facility] 12-22-2018 influenza, high dose seasonal, preservative-free Shaikh Barb VIDES Work Phone: [facility] 02-17-2009 novel [id number], preservative-free, injectable Shaikh Barb VIDES Work Phone: [facility] Payers Date Payer Category Payer Medicare [id number] [facility] [id number] 2018 Medicare [id number] 2008 Unknown [id number] 1959 Medicare [id number] 2. [id number] 1959 Self-pay [id number] 1948 Unknown [id number] [id number] 1948 Unknown [id number] 2.16.84 [id number] 1948 Unknown [id number] 2.16.84 [id number] 1948 Unknown [id number] 2.16.84 [id number] 1948 Unknown [id number] 2.16.84 [id number] 1948 Unknown [id number] 2.16.84 [id number] 1948 Unknown [id number] 2.16.84 [id number] 1948 Unknown [id number] 2.16.84 [id number] 1948 Unknown [id number] 2.16.84 0.1.353020.3.579.2.593 1948 Unknown [id number] 2.16.84 0.1.507758.3.579.2.593 1948 Unknown [id number] 2.16.84 0.1.443092.3.579.2.593 1948 Unknown [id number] 2.16.84 0.1.669759.3.579.2.593 1948 Unknown [id number] 2.16.84 0.1.270432.3.579.2.593 1948 Unknown [id number] 2.16.84 0.1.103735.3.579.2.593 1948 Unknown [id number] 2.16.84 0.1.245669.3.579.2.593 1948 Unknown [id number] 2.16.84 0.1.014568.3.579.2.593 1948 Unknown [id number] 2.16.84 0.1.026794.3.579.2.593 1948 Unknown [id number] 2.16.84 0.1.565196.3.579.2.593 1948 Unknown [id number] 2.16.84 0.1.500015.3.579.2.593 1948 Unknown [id number] 2.16.8 40.1.644287.3.579.2.1286 1948 Unknown [id number] 2.16.8 40.1.432187.3.579.2.128 1948 Unknown [id number] 2.16.8 40.1.673008.3.579.2.1286 1948 Unknown [id number] 2.16.8 40.1.244157.3.579.2.128 1948 Unknown [id number] 2.16.8 40.1.893830.3.579.2.1286 1948 Unknown [id number] 2.16.8 40.1.043350.3.579.2.128 1948 Unknown [id number] 2.16.8 40.1.890271.3.579.2.1286 1948 Unknown [id number] 2.16.8 40.1.807797.3.579.2.128 1948 Unknown [id number] 2.16.8 40.1.209285.3.579.2.1286 1948 Unknown [id number] 2.16.8 40.1.537330.3.579.2.1286 1948 Unknown [id number] 2.16.8 40.1.394657.3.579.2.1286 1948 Unknown [id number] 2.16.8 40.1.706518.3.579.2.128 1948 Unknown [id number] 2.16.8 40.1.234037.3.579.2.128 1948 Unknown [id number] 2.16.84 0.1.307963.3.579.2.1286 1948 Unknown [id number] 2.16.8 40.1.615824.3.579.2.727 1948 Unknown [id number] 2.16.8 40.1.304673.3.579.2.727 1948 Unknown [id number] 2.16.8 40.1.889877.3.579.2.727 1948 Unknown [id number] 2.16.84 0.1.898576.3.579.2.1259 1948 Unknown [id number] 2.16.84 0.1.307261.3.579.2.1259 1948 Unknown [id number] 2.16.84 0.1.550416.3.579.2.1259 1948 Unknown [id number] 2.16.84 0.1.500277.3.579.2.125 1948 Unknown [id number] 2.16.84 0.1.617392.3.579.2.1259 1948 Unknown [id number] 2.16.84 0.1.017534.3.579.2.1259 1948 Unknown [id number] 2.16.84 0.1.458623.3.579.2.1259 Medicare Medicare [id number] Unknown [id number] 2.16.8 40.1.521584.3.579.2.531 Unknown [id number] 2.16.8 40.1.338689.3.579.2.531 Unknown [id number] 2.16.8 40.1.529923.3.579.2.531 Unknown [id number] 2.16.8 40.1.814766.3.579.2.531 Unknown [id number] 2.16.8 40.1.352421.3.579.2.531 Social History Date Type Detail Facility Start: 04-05-2018 End: 02-23-2020 [facility] Start: 03-31-2021 End: 04-12-2023 Tobacco smoking status FLIS Ex-smoker (finding) [facility] Start: 1950 Sex Assigned At Female F [facility] History of tobacco use Current smoker [facility] [employer] [facility] History of tobacco use Cigarette Smoker [facility] Start: 07-22-2018 End: 02-23-2020 Cigarettes smoked current (pack per day) - [facility] Start: 07-22-2018 End: 02-20-2023 Tobacco use and exposure Smokeless tobacco non-user [facility] [employer] [facility] Start: 08-25-2018 End: 03-20-2023 Alcohol intake Current non-drinker of alcohol (finding) [facility] [employer] [facility] Frequency of Alcohol Consumption Never [facility] Start: 1950 Sex Assigned At Not on file P [employer] [facility] Start: 03-07-2023 End: 08-21-2023 Tobacco smoking status Never smoked tobacco (finding) [facility] Start: 03-06-2023 Alcohol intake Lifetime non-d chelsea (finding) [facility] Healthcare Medical Equipment Procedure Code Equipment Code Equipment Origin al Text Equipment Identifier Dates Transcarotid artery revascularization (TCAR) Bare-metal carotid artery stent ()[id number] FDA Start: 04-12-2023 ORIF, fracture, wrist Orthopaedi c fixation plate, non-bioabsorbable, sterile ()[id number] FDA Start: 03-31-2021 ORIF, fracture, wrist Orthopaedi c bone screw, non-bioabsorbable, non-sterile ()[id number] FDA Start: 03-31-2021 ORIF, fracture, wrist Orthopaedi c bone screw, non-bioabsorbable, non-sterile ()[id number] FDA Start: 03-31-2021 ORIF, fracture, wrist Orthopaedi c bone screw, non-bioabsorbable, non-sterile ()[id number] FDA Start: 03-31-2021 ORIF, fracture, wrist Orthopaedi c bone screw, non-bioabsorbable, non-sterile ()[id number] FDA Start: 03-31-2021 Endarterectomy, carotid Cardiova scular patch, animal-derived ()[id number] FDA Start: 04-06-2020 Sys Crd Rvl Linq Rpl [id number] - [id number] - [id number] Start: 04-08-2018 Goals Date Patient Goal [...] therapy. Functional Status Date Assessment Result Facility 08-21-2023 Functional Status N/A [facility] 07-15-2023 Functional Status N/A [facility] 04-12-2023 Functional status Patient at Baseline [facility] Work Phone: 03-07-2023 Functional Status N/A [facility] 11-22-2021 Functional status Patient at Baseline [facility] Work Phone: 11-21-2021 Functional status Patient Not at Baseline [facility] Work Phone: Mental Status Date Assessment Result Facility 04-12-2023 Cognitive function Cognitive Sta tus Patient at Baseline [facility] Work Phone: 11-22-2021 Cognitive function Cognitive Sta tus Patient at Baseline [facility] Work Phone: 11-21-2021 Cognitive function Cognitive Sta tus Patient Not at Baseline [facility] Work Phone: Clinical Notes 11-10-2020 to 09-11-2023 Telephone Encounter - Re Becerra - 04/10/2023 11:48 AM ESTTelephone Encounter - Re Becerra - 04/10/2023 11:48 AM ESTTelephone Encounter - Марина Whiting - 03/28/2023 2:16 PM EST Note Date & Type Note Facility 09-11-2023 Note [facility] Subjective Ozzie Gifford is a 73 y.o. year old female patient being seen for 6 mo follow up CAD, hypertension, and LE edema. C/o chest pain 2-3 times a day, but attributes it from her inability to swallow. Patient Active Problem List Diagnosis Carotid artery stenosis Cerebrovascular accident (CMS/HCC) Contusion of knee Coronary atherosclerosis Hypertension Knee joint replacement by other means Osteoarthrosis, unspecified whether generalized or localized, lower leg Reflex sympathetic dystrophy of lower limb Status post placement of implantable loop recorder Tear of medial cartilage or meniscus of knee, current Mixed hyperlipidemia Bradycardia Bilateral lower extremity edema Atypical angina (CMS/HCC) SARAVIA (dyspnea on exertion) JASEN (acute kidney injury) (CMS/HCC) AMS (altered mental status) Anemia Aphasia due to acute stroke (CMS/HCC) Confusion Dysarthria Dysphagia Dystonia H/O traumatic brain injury Headache History of cerebrovascular accident (CVA) with residual deficit Hospital discharge follow-up Impaired mobility and activities of daily living Migraine with aura and without status migrainosus, not intractable Overflow incontinence of urine Recurrent major depressive disorder, in full remission (CMS/[facility]) Encounter for prophylactic measures, unspecified URTI (acute upper respiratory infection) Dizziness and giddiness Dysuria Incontinence without sensory awareness Internal carotid artery stent present Peripheral vertigo involving left ear Urinary tract infection symptoms UTI (urinary tract infection) White matter disease Family History Problem Relation Name Age of Onset Hypertension Mother Hypertension Father Heart attack Brother Social History Tobacco Use Smoking status: Never Smokeless tobacco: Never Substance Use Topics Alcohol use: Yes Comment: occasional HPI Ozzie is seen in follow-up. She is a 73-year-old woman. She was previously evaluated in cardiology [...] suggestive of possible angina. Imdur was added. In the past year she was admitted to the [facility] in October 2022 and February 2023 due to TIA symptoms. She and her son tell me that she underwent redo right carotid surgery this year at [facility]. Today she reports that she has been doing reasonably well. She has no angina. She has mild dyspnea on exertion as well as lower extremity edema. There is a chronic. No palpitations. She has atypical right-sided chest pain. Her main issue is inability to swallow and throat dysfunction that appears to have been investigated recently by a barium swallow ordered by her PCP. Her PCP is changing practice. She continues to have difficulty swallowing, difficulty speaking easily and breathing comfortably. Review of Systems Eyes: Positive for blurred vision and double vision. Cardiovascular: Positive for chest pain and leg swelling. Respiratory: Positive for shortness of breath. Skin: Positive for color change. Musculoskeletal: Positive for muscle weakness. Genitourinary: Positive for bladder incontinence. Neurological: Positive for dizziness, headaches, light-headedness, loss of balance and weakness. All other systems reviewed and are negative. Objective Visit Vitals BP 122/68 (BP Location: Left arm, Patient Position: Sitting) Pulse 60 Ht 1.626 m (5' 4 ) Wt 64 kg (141 lb) SpO2 95% BMI 24.20 kg/m??? Smoking Status Never BSA 1.7 m??? Physical Exam Constitutional: Appearance: She is [...] soft. Tenderness: There is no abdominal tenderness. Musculoskeleta (more content not included)... [facility] 08-21-2023 Hospital Discharge instructions Patient Education 08/21/2023 13:54:10 Antibiotic Medicine, Adult Antibiotic Medicine, Adult Antibiotic medicines are used to treat infections caused by bacteria, such as strep throat and urinary tract infection (UTI). Antibiotic medicines will not work for colds, the flu (influenza), or other illnesses caused by viruses. These medicines work by killing the bacteria that are making you sick. Antibiotics can also have serious side effects. It is important that you take antibiotic medicines safely and only when needed. When do I need to take antibiotics? You may need antibiotics for: UTI. Strep throat. Bacterial sinusitis. Meningitis. This infection affects the spinal cord and brain. Serious lung infection. You may start antibiotics while your health care provider waits for your results from any tests for possible infection. Tests may include a culture of your throat, urine, blood, or mucus. Your health care provider may change or stop your antibiotic depending on your test results. When are antibiotics not needed? You do not need antibiotics for most common illnesses. These illnesses may be caused by a virus, not by bacteria. You do not need antibiotics for: The common cold. Influenza. Sore throat. Discolored mucus. Bronchitis. Antibiotics are not always needed for all infections caused by bacteria. Many of these infections clear up without antibiotic treatment. Do not ask for or take antibiotics when they are not necessary. How long should I take my antibiotic? You must take the entire prescription. Continue to take your antibiotic for as long as told by your health care provider. Do not stop taking it even if you start to feel better. If you stop taking it too soon: You may start to feel sick again. Your infection may become harder to treat. Each course of antibiotics needs a different amount of time to work. Some antibiotic courses last only a few days. Some last about a week to 10 days. In some cases, you may need to take antibiotics for a few weeks to completely treat your infection. What if I miss a dose? Try not to miss any doses of medicine. If you miss a dose, call your health care provider or pharmacist for advice. Sometimes it is okay to take the missed dose as soon as possible. Do not take double or extra doses. What are the risks of taking antibiotics? Antibiotics can cause: Allergic reactions. Nausea. Yeast infections. Liver problems. Antibiotics can also cause an infection called Clostridioides difficile (C. difficile or C. diff), which causes severe diarrhea. This infection happens when the antibiotics kill the healthy bacteria in your intestines. This allows C. diff to grow. C. diff needs to be treated right away. Let your health care provider know if: You develop diarrhea while taking an antibiotic. You develop diarrhea after you stop taking an antibiotic. C. diff infection can start weeks after stopping the antibiotic. Taking an antibiotic also puts you at risk for getting sick in the future with bacteria that do not respond to medicine (antibiotic-resistant infection). Antibiotics can cause bacteria to change so that if the antibiotic is taken again, the medicine cannot kill the bacteria. These infections can be more serious and, in some cases, life-threatening. Do antibiotics affect control? control pills may not work while you are on antibiotics. If you are taking control pills, continue taking them as usual and use a second form of control, such as a condom, to avoid unwanted . Continue using the second form of control until your health care provider says you can stop. What else should I know about taking antibiotics? It is important for you to take antibiotics exactly as told. Make sure to: Take the correct amount of medicine at the same time each day. Ask your health care provider: ?How long to wait between doses. ?If your antibiotic should be taken with food. ?If there are any foods, drinks, or medicines that you should avoid while taking your antibiotics. ?If there are any side effects you should be aware of. Use only the antibiotics prescribed for you by your health care provider. Do not use antibiotics prescribed for someone else. Drink a large glass of water when taking your antibiotics. Drink enough fluid to keep your urine pale yellow. Ask your pharmacist for a syringe, cup, or spoon that properly measures your antibiotics. Throw away any leftover medicine. Follow these instructions at home: Take ndah-uyu-fmpxijb and prescription medicines as told by your health care provider. Return to your normal activities as told by your health care provider. Ask your health care provider what activities are safe for you. Keep all follow-up visits as told by your health care provider. This is important. Contact a health care provider if: Your symptoms get worse. You have new joint pain or muscle aches that begin after starting your antibiotic. You have side effects from your antibiotic, such as: ?Stomach pain. ?Diarrhea. ?Nausea. ?White patches in your mouth or throat. Get help right away if: You have signs of a severe allergic reaction to antibiotics. If you have any of these signs, stop taking the antibiotic right away. Signs may include: ?Hives. These are raised, itchy, red bumps on your skin. ?Skin rash. ?Trouble breathing. ?Noisy breathing (wheezing). ?Swelling anywhere on your body. ?Feeling dizzy. ?Vomiting. You have signs of liver problems, such as: ?Dark or blood-colored urine. ?Yellow color to your skin. ?Bruising or bleeding easily. You have severe diarrhea, and you have cramps in your abdomen. You have a severe headache. These symptoms may represent a serious problem that is an emergency. Do not wait to see if the symptoms will go away. Get medical help right away. Call your local emergency services (911 in the [place] Do not drive yourself to the hospital. Summary Antibiotic medicines are used to treat infections caused by bacteria. It is important that you take antibiotic medicines safely and only when needed. Your health care provider may change or stop your antibiotic depending on your results from certain tests. Finish all antibiotic medicine even when you start to feel better. This information is not intended to replace advice given to you by your health care provider. Make sure you discuss any questions you have with your health care provider. Document Revised: 03/14/2020 Document Reviewed: 11/17/2019 [employer] Patient Education 2022 [employer]. Follow Up Care 08/20/2023 09:52:06 With:JALEN DENTON PA-C, URL Address: [facility] [place] [address] Business (1) When: only if needed [facility] 07-15-2023 Hospital Discharge instructions Patient Education 07/15/2023 13:39:51 Urinary Tract Infection, Adult Urinary Tract Infection, Adult A urinary tract infection (UTI) is an infection of any part of the urinary tract. The urinary tract includes the kidneys, ureters, bladder, and urethra. These organs make, store, and get rid of urine in the body. An upper UTI affects the ureters and kidneys. A lower UTI affects the bladder and urethra. What are the causes? Most urinary tract infections are caused by bacteria in your genital area around your urethra, where urine leaves your body. These bacteria grow and cause inflammation of your urinary tract. What increases the risk? You are more likely to develop this condition if: You have a urinary catheter that stays in place. You are not able to control when you urinate or have a bowel movement (incontinence). You are female and you: ?Use a spermicide or diaphragm for control. ?Have low estrogen levels. ?Are . You have certain genes that increase your risk. You are sexually active. You take antibiotic medicines. You have a condition that causes your flow of urine to slow down, such as: ?An enlarged prostate, if you are male. ?Blockage in your urethra. ?A kidney stone. ?A nerve condition that affects your bladder control (neurogenic bladder). ?Not getting enough to drink, or not urinating often. You have certain medical conditions, such as: ?Diabetes. ?A weak disease-fighting system (immunesystem). ?Sickle cell disease. ?Gout. ?Spinal cord injury. What are the signs or symptoms? Symptoms of this condition include: Needing to urinate right away (urgency). Frequent urination. This may include small amounts of urine each time you urinate. Pain or burning with urination. Blood in the urine. Urine that smells bad or unusual. Trouble urinating. Cloudy urine. Vaginal discharge, if you are female. Pain in the abdomen or the lower back. You may also have: Vomiting or a decreased appetite. Confusion. Irritability or tiredness. A fever or chills. Diarrhea. The first symptom in older adults may be confusion. In some cases, they may not have any symptoms until the infection has worsened. How is this diagnosed? This condition is diagnosed based on your medical history and a physical exam. You may also have other tests, including: Urine tests. Blood tests. Tests for STIs (sexually transmitted infections). If you have had more than one UTI, a cystoscopy or imaging studies may be done to determine the cause of the infections. How is this treated? Treatment for this condition includes: Antibiotic medicine. Qazs-ios-wzarlnz medicines to treat discomfort. Drinking enough water to stay hydrated. If you have frequent infections or have other conditions such as a kidney stone, you may need to see a health care provider who specializes in the urinary tract (urologist). In rare cases, urinary tract infections can cause sepsis. Sepsis is a life-threatening condition that occurs when the body responds to an infection. Sepsis is treated in the hospital with IV antibiotics, fluids, and other medicines. Follow these instructions at home: Medicines Take khgo-xgl-haorswf and prescription medicines only as told by your health care provider. If you were prescribed an antibiotic medicine, take it as told by your health care provider. Do not stop using the antibiotic even if you start to feel better. General instructions Make sure you: ?Empty your bladder often and completely. Do not hold urine for long periods of time. ?Empty your bladder after sex. ?Wipe from front to back after urinating or having a bowel movement if you are female. Use each tissue only one time when you wipe. Drink enough fluid to keep your urine pale yellow. Keep all follow-up visits. This is important. Contact a health care provider if: Your symptoms do not get better after 1 2 days. Your symptoms go away and then return. Get help right away if: You have severe pain in your back or your lower abdomen. You have a fever or chills. You have nausea or vomiting. Summary A urinary tract infection (UTI) is an infection of any part of the urinary tract, which includes the kidneys, ureters, bladder, and urethra. Most urinary tract infections are caused by bacteria in your genital area. Treatment for this condition often includes antibiotic medicines. If you were prescribed an antibiotic medicine, take it as told by your health care provider. Do not stop using the antibiotic even if you start to feel better. Keep all follow-up visits. This is important. This information is not intended to replace advice given to you by your health care provider. Make sure you discuss any questions you have with your health care provider. Document Revised: 09/09/2020 Document Reviewed: 09/09/2020 [employer] Patient Education 2022 [employer]. 07/15/2023 13:39:50 Urinary Incontinence Urinary Incontinence Urinary incontinence refers to a condition in which a person is unable to control where and when to pass urine. A person with this condition will urinate involuntarily. This means that the person urinates when he or she does not mean to. What are the causes? This condition may be caused by: Medicines. Infections. Constipation. Overactive bladder muscles. Weak bladder muscles. Weak pelvic floor muscles. These muscles provide support for the bladder, intestine, and, in women, the uterus. Enlarged prostate in men. The prostate is a gland near the bladder. When it gets too big, it can pinch the urethra. With the urethra blocked, the bladder can weaken and lose the ability to empty properly. Surgery. Emotional factors, such as anxiety, stress, or post-traumatic stress disorder (PTSD). Spinal cord injury, nerve injury, or other neurological conditions. Pelvic organ prolapse. This happens in women when organs move out of place and into the vagina. This movement can prevent the bladder and urethra from working properly. What increases the risk? The following factors may make you more likely to develop this condition: Age. The older you are, the higher the risk. Obesity. Being physically inactive. and childbirth. Menopause. Diseases that affect the nerves or spinal cord. Long-term, or chronic, coughing. This can increase pressure on the bladder and pelvic floor muscles. What are the signs or symptoms? Symptoms may vary depending on the type of urinary incontinence you have. They include: A sudden urge to urinate, and passing urine involuntarily before you can get to a bathroom (urge incontinence). Suddenly passing urine when doing activities that force urine to pass, such as coughing, laughing, exercising, or sneezing (stress incontinence). Needing to urinate often but urinating only a small amount, or constantly dribbling urine (overflow incontinence). Urinating because you cannot get to the bathroom in time due to a physical disability, such as arthritis or injury, or due to a communication or thinking problem, such as Alzheimer's disease (functional incontinence). How is this diagnosed? This condition may be diagnosed based on: Your medical history. A physical exam. Tests, such as: ?Urine tests. ?X-rays of your kidney and bladder. ?Ultrasound. ?CT scan. ?Cystoscopy. In this procedure, a health care provider inserts a tube with a light and camera (cystoscope) through the urethra and into the bladder to check for problems. ?Urodynamic testing. These tests assess how well the bladder, urethra, and sphincter can store and release urine. There are different types of urodynamic tests, and they vary depending on what the test is measuring. To help diagnose your condition, your health care provider may recommend that you keep a log of when you urinate and how much you urinate. How is this treated? Treatment for this condition depends on the type of incontinence that you have and its cause. Treatment may include: Lifestyle changes, such as: ?Quitting smoking. ?Maintaining a healthy weight. ?Staying active. Try to get 150 minutes of moderate-intensity exercise every week. Ask your health care provider which activities are safe for you. ?Eating a healthy diet. ?Avoid high-fat foods, like fried foods. ?Avoid refined carbohydrates like white bread and white rice. ?Limit how much alcohol and caffeine you drink. ?Increase your fiber intake. Healthy sources of fiber include beans, whole grains, and fresh fruits and vegetables. Behavioral changes, such as: ?Pelvic floor muscle exercises. ?Bladder training, such as lengthening the amount of time between bathroom breaks, or using the bathroom at regular intervals. ?Using techniques to suppress bladder urges. This can include distraction techniques or controlled breathing exercises. Medicines, such as: ?Medicines to relax the bladder muscles and prevent bladder spasms. ?Medicines to help slow or prevent the growth of a man's prostate. ?Botox injections. These can help relax the bladder muscles. Treatments, such as: ?Using pulses of electricity to help change bladder reflexes (electrical nerve stimulation). ?For women, using a medical biller/coder to prevent urine leaks. This is a small, tampon-like, disposable device that is inserted into the urethra. ?Injecting collagen or carbon beads (bulking agents) into the urinary sphincter. These can help thicken tissue and close the bladder opening. ?Surgery. Follow these instructions at home: Lifestyle Limit alcohol and caffeine. These can fill your bladder quickly and irritate it. Keep yourself clean to help prevent odors and skin damage. Ask your health care provider about special skin creams and cleansers that can protect the skin from urine. Consider wearing pads or adult diapers. Make sure to change them regularly, and always change them right after experiencing incontinence. General instructions Take ohod-gyn-wmulnim and prescription medicines only as told by your health care provider. Use the bathroom about every 3 4 hours, even if you do not feel the need to urinate. Try to empty your bladder completely every time. After urinating, wait a minute. Then try to urinate again. Make sure you are in a relaxed position while urinating. If your incontinence is caused by nerve problems, keep a log of the medicines you take and the times you go to the bathroom. Keep all follow-up visits. This is important. Where to find more information [employer] [place] [employer] and Digestive and Kidney Diseases: www.niddk.nih.gov [place] [employer]: www.urologyhealth.org Contact a health care provider if: You have pain that gets worse. Your incontinence gets worse. Get help right away if: You have a fever or chills. You are unable to urinate. You have redness in your groin area or down your legs. Summary Urinary incontinence refers to a condition in which a person is unable to control where and when to pass urine. This condition may be caused by medicines, infection, weak bladder muscles, weak pelvic floor muscles, enlargement of the prostate (in men), or surgery. Factors such as older age, obesity, and childbirth, menopause, neurological diseases, and chronic coughing may increase your risk for developing this condition. Types of urinary incontinence include urge incontinence, stress incontinence, overflow incontinence, and functional incontinence. This condition is usually treated first with lifestyle and behavioral changes, such as quitting smoking, eating a healthier diet, and doing regular pelvic floor exercises. Other treatment options include medicines, bulking agents, medical devices, electrical nerve stimulation, or surgery. This information is not intended to replace advice given to you by your health care provider. Make sure you discuss any questions you have with your health care provider. Document Revised: 09/02/2020 Document Reviewed: 09/02/2020 [employer] Patient Education 2022 [place]. Follow Up Care 07/15/2023 10:29:19 With:MITRA Quintero APRN, Carmen Rm, JAYESH, URL Address: When: Unknown Comments:1 yr w/ PVR [facility] 07-15-2023 Evaluation + Plan note Diagnostic Tests PendingUrine Culture 07/15/23 [facility] 04-19-2023 Note From a Cardiology pe rspective pt is an acceptable risk for carotid surgery. Please monitor hemodynamics carefully and prevent any major fluid shifts. [facility] 04-10-2023 Miscellaneous Notes Received a call from patient's PCP office regarding appointment that's scheduled on 07/02/23 at 9:00a with Dr. Espinosa. Their office stated patient was suppose to be scheduled within 3 weeks from seeing last provider Dr. Garcia, Bid Clerk did review office note and nothing was stated that patient needed a [address] Espinosa. Patient was scheduled at next available time for provider. No further questions at this time. documented in this encounter [facility] 04-10-2023 Telephone encounter Note Received a call from patient's PCP office regarding appointment that's scheduled on 07/02/23 at 9:00a with Dr. Espinosa. Their office stated patient was suppose to be scheduled within 3 weeks from seeing last provider Dr. Garcia, Bid Clerk did review office note and nothing was stated that patient needed a [address] Espinosa. Patient was scheduled at next available time for provider. No further questions at this time. [facility] 03-28-2023 Miscellaneous Notes First Attempt Made from [employer]- Left Voicemail New patient referral received. Dx:Dizzy [[id number]]/ Referred by:Rabia Dubose PA-C Referred to: Providers patient can see in clinic: Please contact patient to schedule from referral, Thanks! PLEASE REVIEW PLAN OVER THE PHONE AND ADVISE PATIENT TO BRING UPDATED INSURANCE INFORMATION TO THEIR NEW PATIENT APPOINTMENT Patient is scheduled for the following appointment: 07/02/2023 09:00 - MARTIN ESPINOSA MD New patient Dizzy [[id number]] Referring provider: Rabia Dubose PA-C i Referred to Dr. Espinosa *Insurance verified: E-[employer]HE[employer] MEDICARE/ANTHEM MEDICARE ADVANTAGE* NOT A WORKMANS COMP CASE New patient paperwork mailed 03/29/2023 - MMV documented in this encounter [facility] 03-28-2023 Telephone encounter Note First Attempt Made from [employer]- Left Voicemail New patient referral received. Dx:Dizzy [[id number]]/ Referred by:Rabia Dubose PA-C Referred to: Providers patient can see in clinic: Please contact patient to schedule from referral, Thanks! PLEASE REVIEW PLAN OVER THE PHONE AND ADVISE PATIENT TO BRING UPDATED INSURANCE INFORMATION TO THEIR NEW PATIENT APPOINTMENT [facility] 03-28-2023 Telephone encounter Note Patient is scheduled for the following appointment: 07/02/2023 09:00 - MARTIN ESPINOSA MD New patient Dizzy [[id number]] Referring provider: Rabia Dubose PA-C i Referred to Dr. Espinosa *Insurance verified: E-[employer]HEM MEDICARE/ANTHEM MEDICARE ADVANTAGE* NOT A WORKMANS COMP CASE New patient paperwork mailed 03/29/2023 - MMV [facility] 03-20-2023 History of Present illness Narrative Reason for visit: dizziness HPI: Ozzie Gifford is a 72 y.o. 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 She was seen at [facility] ER for of speech disturbance and gait instability. MRI brain was negative for acute stroke. Her dizziness has come on gradually since November 2022 and describes it as gait instability. Vessel imaging at OSH did show restenosis of prior R ICA therefore we recommended follow up in our clinic. She presents to clinic with her present during her appointment. She reports significant issues with gait stability and dizziness since November and is now using a cane to ambulate. She denies any changes in vision, speech disturbance, motor weakness or sensory changes, mostly just complaining of gait instability. Review of Systems Review of Systems Constitutional: Positive for decreased appetite and weight loss. Negative for chills, fever and malaise/fatigue. HENT: Negative for nosebleeds. Eyes: Positive for blurred vision. Negative for double vision, photophobia, vision loss in left eye, vision loss in right eye and visual disturbance. Cardiovascular: Negative for irregular heartbeat, leg swelling, near-syncope, palpitations and syncope. Respiratory: Negative for shortness of breath and sleep disturbances due to breathing. Endocrine: Positive for cold intolerance and heat intolerance. Hematologic/Lymphatic: Negative for bleeding problem. Bruises/bleeds easily. Skin: Negative for poor wound healing. Musculoskeletal: Positive for arthritis. Negative for falls, muscle cramps, muscle weakness, myalgias and neck pain. Neurological: Positive for aphonia, dizziness and light-headedness. Negative for difficulty with concentration, disturbances in coordination, focal weakness, headaches, loss of balance, numbness, paresthesias, seizures, sensory change, vertigo and weakness. Psychiatric/Behavioral: Negative for altered mental status, depression and memory loss. The patient does not have insomnia and is not nervous/anxious. Past Medical History Past Medical History: Diagnosis Date Breast disorder Headache HTN (hypertension) Stroke ([facility]) Past Surgical History Past Surgical History: Procedure Laterality Date APPENDECTOMY BARIATRIC SURGERY BREAST MASS EXCISION Patient had milk duct removal and some breast tissue removal CHOLECYSTECTOMY COLONOSCOPY Diagnostic cerebral angiogram N/A 04/05/2018 Performed by Soren Hollingsworth MD at [facility] CARDIAC CATH LABS HYSTERECTOMY REPLACEMENT TOTAL KNEE Stroke Thrombectomy, 04/05/2018 N/A 04/05/2018 Performed by Soren Hollingsworth MD at [facility] CARDIAC CATH LABS TONSILLECTOMY Family History The patient has a family history of Family History Problem Relation Age of Onset Brain Tumor Mother Cancer Father Heart attack Brother Social History Social History Socioeconomic History Marital status: Spouse name: Not on file Number of children: Not on file Years of education: Not on file Highest education level: Not on file Occupational History Not on file Tobacco Use Smoking status: Former Packs/day: 1 Types: Cigarettes Smokeless tobacco: Never Substance and Sexual Activity Alcohol use: No Drug use: No Sexual activity: Not Currently Partners: Male Other Topics Concern Not on file Social History Narrative Not on file Social Determinants of Health Financial Resource Strain: Not on file Food Insecurity: Not on file Transportation Needs: Not on file Physical Activity: Not on file Stress: Not on file Social Connections: Not on file Interpersonal Safety: Not on file Housing Instability: Not on file Current Medications: Current Outpatient Medications: aspirin 81 mg, Take 1 tablet (81 mg total) by mouth in the morning., Disp: , Rfl: baclofen (LIORESAL) 20 mg tablet, Take 1 tablet (20 mg total) by mouth 3 (three) times a day Indications: muscle spasms caused by a spinal disease., Disp: , Rfl: cetirizine (ZyrTEC) 10 mg tablet, Take 1 tablet (10 mg total) by mouth in the morning., Disp: , Rfl: clonazePAM (KlonoPIN) 0.5 mg tablet, Take 1 tablet (0.5 mg total) by mouth in the morning and 1 tablet (0.5 mg total) before bedtime., Disp: , Rfl: ferrous sulfate 325 (65 FE) mg tablet, Take 1 tablet (325 mg total) by mouth daily with breakfast Indications: anemia from inadequate iron., Disp: , Rfl: hydroCHLOROthiazide (MICROZIDE) 12.5 mg capsule, Take 1 capsule (12.5 mg total) by mouth daily., Disp: , Rfl: lisinopril-hydroCHLOROthiazide (PRINZIDE,ZESTORETIC) 10-12.5 mg per tablet, Take 1 tablet by mouth in the morning., Disp: , Rfl: metoprolol succinate XL (TOPROL-XL) 25 mg 24 hr tablet, Take 1 tablet (25 mg total) by mouth in the morning., Disp: , Rfl: rosuvastatin (CRESTOR) 10 mg tablet, Take 1 tablet (10 mg total) by mouth in the morning., Disp: , Rfl: traZODone (DESYREL) 100 mg tablet, Take 1.5 tablets (150 mg total) by mouth nightly as needed for sleep., Disp: , Rfl: Allergies: Allergies Allergen Reactions Penicillins Last Neuro Imaging: No new cerebral imaging to review. Objective: BP 144/65 (BP Site: Left Arm, BP Postition: Sitting, BP CUFF SIZE: M (9-13 inches)) Pulse 67 Ht 152.4 cm (5') Wt 62.6 kg (138 lb) BMI 26.95 kg/m Physical Exam: Neurology Physical Exam NIH Stroke Scale 1a Level of consciousness: 0=alert; keenly responsive 1b. LOC questions: 0=Performs both tasks correctly 1c. LOC commands: 0=Performs both tasks correctly 2. Best Gaze: 0=normal 3. Visual: 0=No visual loss 4. Facial Palsy: 0=Normal symmetric movement 5a. Motor left arm: 0=No drift, limb holds 90 (or 45) degrees for full 10 seconds 5b. Motor right arm: 0=No drift, limb holds 90 (or 45) degrees for full 10 seconds 6a. motor left le=No drift, limb holds 90 (or 45) degrees for full 10 seconds 6b Motor right le=No drift, limb holds 90 (or 45) degrees for full 10 seconds 7. Limb Ataxia: 0=Absent 8. Sensory: 0=Normal; no sensory loss 9. Best Language: 0=No aphasia, normal 10. Dysarthria: 0=Normal 11. Extinction and Inattention: 0=No abnormality Total: 0 General Appearance: awake, alert, no distress Head: Normocephalic, without obvious abnormality, atraumatic Eyes: conjunctivae/corneas clear. PERRL, EOM's intact. Fundi benign. Extremities: extremities normal, atraumatic, no cyanosis or edema Skin: Skin color, texture, turgor normal. No rashes or lesions Neurologic: see NIHSS NIHSS0 MRS:2 PHQ9: 6 Risk Factor Management: Hypertension target range 130-140/70-80 Lipid range - LDL < 100 and checked every 6 months, fasting R ICA stenosis Assessment/Plan: Dizziness Suspect peripheral etiology Recommend close follow up in dizziness clinic, referral provided for patient to see Dr. Espinosa R ICA stenosis (hx of prior R CEA) Unlikely the cause of dizziness. Will re-assess if repeat DSA and possible stenting are indicated following her appointment with Dr. Espinosa. Will place on two month recall list Hypertension- Advise continuing to monitor for target SBP <130 -Continue antihypertensive regimen Hyperlipidemia- low fat/low cholesterol diet -Continue statin therapy -Recommend diet and exercise 5. Hx of prior ischemic strokes -Call 911 if experiencing any stroke like symptoms (vision changes, speech changes, weakness, paresthesias, gait instability) - Rabia Dubose PA-C 03/21/23 4:39 PM Patient seen & examined in conjunction with KAREY. I have reviewed and agree with the HPI, ROS, examination, assessment and plan as outlined in the note above. documented in this encounter [facility] 03-20-2023 Instructions Rabia Dubose PA-C - 03/20/2023 1:00 PM EST Continue aspirin and statin Follow up with dizziness specialist We will discuss with you following appointment with Dr. Espinosa [facility] this encounter [facility] 03-14-2023 Note Coronary artery dise ase is stable Continue GDMT- ASA, crestor, toprol, lisinopril- HCTZ continue risk factor modifications- heart healthy diet, regular exercise as tolerated and continue all medications. [facility] 03-14-2023 Note Hypertension is well controlled Continue all meds [facility] 03-14-2023 Note Continue lasix 20 mg daily and edema is improved [facility] 03-14-2023 Note Patient here for 1 m o follow up echo. She was discharged from [facility] 2 weeks ago for TIA. She did follow up with urology for the urinary issues and is being treated by them. SOB and LE edema have improved a lot she says. Review of Systems Cardiovascular: Positive for leg swelling. Respiratory: Positive for shortness of breath. Skin: Positive for color change. Musculoskeletal: Positive for muscle weakness. Genitourinary: Positive for bladder incontinence. Neurological: Positive for dizziness, headaches, light-headedness, loss of balance and weakness. All other systems reviewed and are negative. [facility] 03-14-2023 Note [facility] CARDIOLOGY PROGR ESS NOTE HPI: Ozzie Gifford is a 72 y.o. female here for F/U HPI Patient here for 1 mo follow up echo. She was discharged from [facility] 2 weeks ago for TIA. She did follow up with urology for the urinary issues and is being treated by them. SOB and LE edema have improved a lot she says. Patient here for 1mo follow up CAD, hypertension, and carotid artery stenosis. She states she tries to take her lasix every other day. C/o pissing herself at night and smelly urine . Says she had another stroke on 10/20/2022 and was seen in [facility] ED. She is having trouble getting ahold of the neurology office she sees. She denies chest pain. Says she's always SOB. She is still driving. Today she states leg swelling is great but c/o Rt leg pain s/p recent fall from tripping over her dog. Review of Systems Cardiovascular: Positive for leg swelling. Respiratory: Positive for shortness of breath. Skin: Positive for color change. Musculoskeletal: Positive for muscle weakness. Genitourinary: Positive for bladder incontinence. Neurological: Positive for dizziness, headaches, light-headedness, loss of balance and weakness. All other systems reviewed and are negative. Visit Vitals BP 120/68 (BP Location: Left arm, Patient Position: Sitting) Pulse 73 Ht 1.626 m (5' 4 ) Wt 62.6 kg (138 lb) SpO2 97% BMI 23.69 kg/m??? Smoking Status Never BSA 1.68 m??? Allergies Allergen Reactions Penicillins Rash Medications: [...] Take 65 mg by mouth with breakfast. furosemide (Lasix) 40 mg tablet Take 1 tablet (40 mg) by mouth in the morning. (Patient taking differently: Take 20 mg by mouth in the morning.) 30 tablet 11 gabapentin (Neurontin) 100 mg capsule gabapentin 100 mg capsule lisinopriL-hydrochlorothiazide 10-12.5 mg tablet Take 1 tablet every day by oral route for 90 days. metoprolol succinate XL (Toprol-XL) 25 mg 24 hr tablet metoprolol succinate ER 25 mg tablet,extended release 24 hr potassium chloride CR (Klor-Con M10) 10 mEq ER tablet Take 1 tablet (10 mEq) by mouth in the morning. Do not crush or chew. 30 tablet 11 QUEtiapine (SEROquel) 50 mg tablet quetiapine 50 mg tablet rosuvastatin (Crestor) 20 mg tablet Take 1 tablet (20 mg) by mouth in the morning. 90 tablet 3 topiramate 50 mg tablet traZODone (Desyrel) 100 mg tablet Take 150 mg by mouth. trospium (Sanctura XR) 60 mg 24 hour capsule Take 60 mg by mouth. No current facility-administered medications on file prior to visit. Physical Exam: Constitutional: Appearance: Normal appearance. Without apparent distress, chronically ill HENT: Head: Normocephalic and atraumatic. [...] back: Normal range of motion. Right lower leg: No edema. Left lower leg: No edema. Skin: General: Skin is warm and dry. Capillary Refill: Capillary refill takes less than 2 seconds. Neurological: General: No focal deficit present. Mental Status: She is alert and oriented to person, place, and time. Psychiatric: Mood and Affect: Mood normal. Behavior: Behavior normal. Thought Content: Thought content normal. Judgment: Judgment normal. Labs: CBC normal, renal function and liver function normal, lipid levels well controlled 01/18/22 Last lab values have been reviewed 02/21/22 TTE 08/31/21 Carotid US 11/21/21 TTE Echocardiogram 02/21/2022: Global left ventricular systolic function is normal, visually estimated ejection fraction is 60 to 65%. No regional wall motion abnormalities, diastolic function is indeterminate, left atrium is mildly dilated, RV is normal in size and systolic function, mild tricuspid regurgitation, mild mitral regurgitation. Carotid ultrasound 08/31/2021: moderate bilateral ICA stenosis. -EKG 03/05/20: SR, no ischemic EKG changes -ECHO 03/24/20: EF (more content not included)... [facility] 03-07-2023 Hospital Discharge instructions Patient Education 03/07/2023 14:30:33 Urinary Incontinence Urinary Incontinence Urinary incontinence refers to a condition in which a person is unable to control where and when to pass urine. A person with this condition will urinate involuntarily. This means that the person urinates when he or she does not mean to. What are the causes? This condition may be caused by: Medicines. Infections. Constipation. Overactive bladder muscles. Weak bladder muscles. Weak pelvic floor muscles. These muscles provide support for the bladder, intestine, and, in women, the uterus. Enlarged prostate in men. The prostate is a gland near the bladder. When it gets too big, it can pinch the urethra. With the urethra blocked, the bladder can weaken and lose the ability to empty properly. Surgery. Emotional factors, such as anxiety, stress, or post-traumatic stress disorder (PTSD). Spinal cord injury, nerve injury, or other neurological conditions. Pelvic organ prolapse. This happens in women when organs move out of place and into the vagina. This movement can prevent the bladder and urethra from working properly. What increases the risk? The following factors may make you more likely to develop this condition: Age. The older you are, the higher the risk. Obesity. Being physically inactive. and childbirth. Menopause. Diseases that affect the nerves or spinal cord. Long-term, or chronic, coughing. This can increase pressure on the bladder and pelvic floor muscles. What are the signs or symptoms? Symptoms may vary depending on the type of urinary incontinence you have. They include: A sudden urge to urinate, and passing urine involuntarily before you can get to a bathroom (urge incontinence). Suddenly passing urine when doing activities that force urine to pass, such as coughing, laughing, exercising, or sneezing (stress incontinence). Needing to urinate often but urinating only a small amount, or constantly dribbling urine (overflow incontinence). Urinating because you cannot get to the bathroom in time due to a physical disability, such as arthritis or injury, or due to a communication or thinking problem, such as Alzheimer's disease (functional incontinence). How is this diagnosed? This condition may be diagnosed based on: Your medical history. A physical exam. Tests, such as: ?Urine tests. ?X-rays of your kidney and bladder. ?Ultrasound. ?CT scan. ?Cystoscopy. In this procedure, a health care provider inserts a tube with a light and camera (cystoscope) through the urethra and into the bladder to check for problems. ?Urodynamic testing. These tests assess how well the bladder, urethra, and sphincter can store and release urine. There are different types of urodynamic tests, and they vary depending on what the test is measuring. To help diagnose your condition, your health care provider may recommend that you keep a log of when you urinate and how much you urinate. How is this treated? Treatment for this condition depends on the type of incontinence that you have and its cause. Treatment may include: Lifestyle changes, such as: ?Quitting smoking. ?Maintaining a healthy weight. ?Staying active. Try to get 150 minutes of moderate-intensity exercise every week. Ask your health care provider which activities are safe for you. ?Eating a healthy diet. ?Avoid high-fat foods, like fried foods. ?Avoid refined carbohydrates like white bread and white rice. ?Limit how much alcohol and caffeine you drink. ?Increase your fiber intake. Healthy sources of fiber include beans, whole grains, and fresh fruits and vegetables. Behavioral changes, such as: ?Pelvic floor muscle exercises. ?Bladder training, such as lengthening the amount of time between bathroom breaks, or using the bathroom at regular intervals. ?Using techniques to suppress bladder urges. This can include distraction techniques or controlled breathing exercises. Medicines, such as: ?Medicines to relax the bladder muscles and prevent bladder spasms. ?Medicines to help slow or prevent the growth of a man's prostate. ?Botox injections. These can help relax the bladder muscles. Treatments, such as: ?Using pulses of electricity to help change bladder reflexes (electrical nerve stimulation). ?For women, using a medical biller/coder to prevent urine leaks. This is a small, tampon-like, disposable device that is inserted into the urethra. ?Injecting collagen or carbon beads (bulking agents) into the urinary sphincter. These can help thicken tissue and close the bladder opening. ?Surgery. Follow these instructions at home: Lifestyle Limit alcohol and caffeine. These can fill your bladder quickly and irritate it. Keep yourself clean to help prevent odors and skin damage. Ask your health care provider about special skin creams and cleansers that can protect the skin from urine. Consider wearing pads or adult diapers. Make sure to change them regularly, and always change them right after experiencing incontinence. General instructions Take chxs-wxt-bitasgx and prescription medicines only as told by your health care provider. Use the bathroom about every 3 4 hours, even if you do not feel the need to urinate. Try to empty your bladder completely every time. After urinating, wait a minute. Then try to urinate again. Make sure you are in a relaxed position while urinating. If your incontinence is caused by nerve problems, keep a log of the medicines you take and the times you go to the bathroom. Keep all follow-up visits. This is important. Where to find more information National [place] of Diabetes and Digestive and Kidney Diseases: www.niddk.nih.gov [place] [employer]: www.urologyhealth.org Contact a health care provider if: You have pain that gets worse. Your incontinence gets worse. Get help right away if: You have a fever or chills. You are unable to urinate. You have redness in your groin area or down your legs. Summary Urinary incontinence refers to a condition in which a person is unable to control where and when to pass urine. This condition may be caused by medicines, infection, weak bladder muscles, weak pelvic floor muscles, enlargement of the prostate (in men), or surgery. Factors such as older age, obesity, and childbirth, menopause, neurological diseases, and chronic coughing may increase your risk for developing this condition. Types of urinary incontinence include urge incontinence, stress incontinence, overflow incontinence, and functional incontinence. This condition is usually treated first with lifestyle and behavioral changes, such as quitting smoking, eating a healthier diet, and doing regular pelvic floor exercises. Other treatment options include medicines, bulking agents, medical devices, electrical nerve stimulation, or surgery. This information is not intended to replace advice given to you by your health care provider. Make sure you discuss any questions you have with your health care provider. Document Revised: 09/02/2020 Document Reviewed: 09/02/2020 [employer] Patient Education 2022 [place]. Follow Up Care 02/21/2023 11:58:10 With:MITRA Quintero APRN, Carmen Rm, JAYESH, URL Address: When:Within 8 Week(s) Comments:w/ pvr [facility] 02-26-2023 Note SARAVIA and leg edema- r ecommended to increase lasix to 40 mg daily for diuresis and repeat BMP next week [facility] 02-13-2023 Note Lipid abnormalities are well controlled, continue crestor [facility] 02-13-2023 Note Hypertension is elev ated, currently will increase lasix to daily and increase potassium, Repeat BMP in 1 week Continue norvasc 2.5 mg Renal function normal [facility] 02-13-2023 Note Coronary artery dise ase is stable Continue GDMT- ASA, crestor and toprol continue risk factor modifications- heart healthy diet, regular exercise as tolerated and continue all medications. [facility] 02-13-2023 Note F/U with neuro [facility] 02-13-2023 Note Patient here for 6 m o follow up CAD, hypertension, and carotid artery stenosis. She states she tries to take her lasix every other day. C/o pissing herself at night and smelly urine . Says she had another stroke on 10/20/2022 and was seen in [facility]. She is having trouble getting ahold [...] systems reviewed and are negative. [facility] 02-13-2023 Note UTP CARDIOLOGY PROGR [...] stroke on 10/20/2022 and was seen in [facility] ED. She is having trouble getting ahold [...] to get appointment with Neuro/stroke service at [facility] and with her PCP DR Posey. [...] Affect: Mood nor (more content not included)... [facility] 01-24-2023 Miscellaneous Notes Patient called to see if we received paperwork that was sent from her PCP in July. Caller states she has had a new stroke and needs to be seen. Patient states she has been having headaches and dizziness. Please advise [phone] Patient last seen in 2019. No paperwork has been completed or received. Please see where patient had recent stroke and gather records. Called pt. She state Dr. Godwin sent the paperwork back in November 2022. MRI was done at [place] very recently. Bid Clerk will be requesting image and any office visit notes related to neurology. Pt seems to be very frustrated by the lack of communication. Bid Clerk informed that we will reach out to [place] to gather as much information. Bid Clerk must note that the quality of the call was very poor and it was hard to communicate with the patient. Asked if she could move to somewhere with a better reception manager, but even then the quality did not improve. At the end of the call, she showed more frustration which press writer could not understand and she hung up. Called [facility] radiology to confirm if she has gotten any MRI in November. It was ordered by one of the hospitalists. A electrical service technician could not confirm who ordered the imaging, but confirmed that she pushed over the imaging through PACs and reports via fax. Currently waiting for response. Faxed request for hospitalization records on nov 2022. Currently waiting for response. Called and scheduled an appointment on 03/12/23 at 10:00 AM documented in this encounter [facility] 01-24-2023 Telephone encounter Note Patient called to see if we received paperwork that was sent from her PCP in July. Caller states she has had a new stroke and needs to be seen. Patient states she has been having headaches and dizziness. Please advise [phone] [facility] 01-24-2023 Telephone encounter Note Patient last seen in 2019. No paperwork has been completed or received. Please see where patient had recent stroke and gather records. [facility] 01-24-2023 Telephone encounter Note Called pt. She state Dr. Godwin sent the paperwork back in November 2022. MRI was done at [place] very recently. Bid Clerk will be requesting image and any office visit notes related to neurology. Pt seems to be very frustrated by the lack of communication. Bid Clerk informed that we will reach out to [place] to gather as much information. Bid Clerk must note that the quality of the call was very poor and it was hard to communicate with the patient. Asked if she could move to somewhere with a better reception manager, but even then the quality did not improve. At the end of the call, she showed more frustration which press writer could not understand and she hung up. [facility] 01-24-2023 Telephone encounter Note Called [facility] radiology to confirm if she has gotten any MRI in November. It was ordered by one of the hospitalists. A electrical service technician could not confirm who ordered the imaging, but confirmed that she pushed over the imaging through PACs and reports via fax. Currently waiting for response. [facility] 01-24-2023 Telephone encounter Note Faxed request for hospitalization records on nov 2022. Currently waiting for response. [facility] 01-24-2023 Telephone encounter Note Called and scheduled an appointment on 03/12/23 at 10:00 AM [employer] 10-16-2022 Evaluation note Encounter Date Diagnosis Assessment [...] with chronic urinary symptoms. Patient verbalized understanding. [employer] Other 02-22-2023 Evaluation note* Encounter Date Diagnosis Assessment Notes [...] 1 year with repeat studies for surveillance. [employer] Other 10-18-2022 NoteED Procedure Charges Entered On: 11/28/2021 17:45 EDT Performed On: 11/28/2021 17:44 EDT by Heena Crawford [employer] ([id number]) Sim Rep Sca to 2.5 [id number] : 1 Heena Crawford [facility] Discharge Summary Entered On: 11/24/2021 17:29 EDT Performed On: 11/24/2021 17:29 EDT by Jennifer Mccarthy RN MS Information [id number] ED IV's : No IV ED IV Site Assessment : No IV ED Vitals Completed : Yes ED Final Assessment Completed : Yes ED Progress Note Completed : Yes Complete all PRN/Pain response forms? : Yes ED Disassociate Patient from Monitor : N/A Updated Depart Time : Yes ED Belongings sent w patient [id number] : Not applicable Jennifer Mccarthy RN - [...] Jennifer Mccarthy RN - 11/24/2021 17:29 EDT [facility]10[facility]2022 NotePROCEDURE: CT CHEST WITHOUT IV CONTRAST HISTORY: WHAT SYMPTOMS ARE YOU EXPERIENCING? - PT FELL AND HIT HEAD, PAIN, HX OF STROKE 2019, SOB, CHEST PAIN PAIN COMPARISON: None TECHNIQUE: Multiple contiguous axial CT images of the chest were obtained without the administration of intravenous contrast. Sagittal and coronal reconstructions were performed. All CT scans at [facility] use dose modulation, iterative reconstruction, and/or [...] for follow-up recommendations. [facility] MANDATED QUALITY DATA - FOLLOW-UP IMAGING FOR [...] By: ISMAEL AGUILAR MD Signed Out: 11/24/21 14:28:[address] [place], [place] 5535210-12-2022 Consult note Author Shavon Leos [facility] November 22, 2021 11:54am Note Date/Time November 22, 2021 1 1:45am [facility] [address] [place] [address] Cardiology Consult Note Signed Patient: Ozzie Gifford MR#: [id number] : 1950 Acct:[id number] Age/Sex: 71 / F Adm Date: 2 Loc: Room: [address] [place] [address] Type: ADM IN Attending Dr: Anna Valladares [...] past she underwent work-up by cardiology in [place]. 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 [place] Documented By: Shavon Leos MD 11/22/21 1143 Signed By: <Electronically signed by MD Shavon Leos> 11/22/21 1154 [facility] Work Phone: 1(985) 412-771610-12-2022 Progress note Author Anna Valladares [facility] November 22, 2021 8:17am Note Date/Time November 21, 2021 1 2:10pm [facility] [address] [place] [address] Hospitalist Progress Note Signed Patient: Ozzie Gifford MR#: [id number] : 1950 Acct:[id number] Age/Sex: 71 / F Adm Date: 2 Loc: Room: [address] [place] [address] Type: ADM IN Attending Dr: Anna Valladares MD Copies to: ~ Date of Service: 11/21/2021 Subjective Subjective Narrative: Patient seen and examined. cartside, currently still roomed in down in ER awaiting nursing floor availability. She offers no complaint. Keeps talkingof her daughter in [place] dying from cancer currently. thinks this is [...] signed by Anna Valladares MD> 11/22/21 0817 [facility] Work Phone: 1(151) 669-189310-11-2022 History and physical note Author Ashleigh Rashid [facility] November 21, 2021 6:39am Note Date/Time November 21, 2021 6 :39am [facility] [address] [place] [address] Hospitalist H&P Signed Patient: Ozzie Gifford MR#: [id number] : 1950 Acct:[id number] Age/Sex: 71 / F Adm Date: 2 Loc: ER Room: Type: [facility] ER Attending Dr: Copies to: MD [...] of appendectomy History of cardiac catheterization 2020 [facility] History of knee replacement right knee [...] % (Auto) 20.4 % (.) 11/21/21 04:12 [place] % (Auto) 9.9 % (.) 11/21/21 04:12 Eos % (Auto) 3.7 % (.) 11/21/21 04:12 Baso % (Auto) 0.8 % (.) 11/21/21 04:12 Neut # (Auto) 3.5 x10E3/uL (1.8-7.7) 11/21/21 04:12 Lymph # (Auto) 1.1 x10E3/uL (1.00-4.8) 11/21/21 04:12 [place] # (Auto) 0.5 x10E3/uL (0.0-0.8) 11/21/21 04:12 [...] pH 5.5 (5.0-9.0) 11/21/21 04:20 Ur Specific [place] 1.010 (1.001-1.030) 11/21/21 04:20 Urine Protein Negative [...] signed by Ashleigh Cruz MD> 11/21/21 0639 [facility] Work Phone: 1(272) 957-346410-11-2022 History and physical note Author Ashleigh Rashid [facility] November 21, 2021 6:39am Note Date/Time November 21, 2021 6 :39am [facility] [address] [place] [address] Hospitalist H&P Signed Patient: Ozzie Gifford MR#: [id number] : 1950 Acct:[id number] Age/Sex: 71 / F Adm Date: 2 Loc: ER Room: Type: [facility] ER Attending Dr: Copies to: MD [...] injury, UA was concerning for UTI, on encount the patient was in bed she is [...] of appendectomy History of cardiac catheterization 2020 [facility] History of knee replacement right knee [...] % (Auto) 20.4 % (.) 11/21/21 04:12 [place] % (Auto) 9.9 % (.) 11/21/21 04:12 Eos % (Auto) 3.7 % (.) 11/21/21 04:12 Baso % (Auto) 0.8 % (.) 11/21/21 04:12 Neut # (Auto) 3.5 x10E3/uL (1.8-7.7) 11/21/21 04:12 Lymph # (Auto) 1.1 x10E3/uL (1.00-4.8) 11/21/21 04:12 [place] # (Auto) 0.5 x10E3/uL (0.0-0.8) 11/21/21 04:12 [...] pH 5.5 (5.0-9.0) 11/21/21 04:20 Ur Specific [place] 1.010 (1.001-1.030) 11/21/21 04:20 Urine Protein Negative [...] signed by Ashleigh Cruz MD> 11/21/21 0639 [facility] Work Phone: 1(723) 360-881008-17-2022 Evaluation note* Encounter Date Diagnosis Assessment Notes [...] studies. All of her questions were addressed. [employer] Other 08-12-2022 Evaluation note* Encounter Date Diagnosis [...] Advised that patient may continue to use fhjy-kfo-fkquomd medications as needed for supportive treatment. Discussed that it could be possible that her nausea/vomiting/diar debbi could still be some residual side effects from the Paxlovid medication. At this time she should not take anymore that. She may follow-up with family doctor as scheduled on Saturday if she has more concerns. [employer] Other 08-10-2022 Evaluation note* Encounter Date Diagnosis [...] new questions or concerns at this time. [employer] Other 06-22-2022 Evaluation note* Encounter Date Diagnosis [...] Other specified postprocedural states (ICD-10 - Z98.890) [employer] Other 06-01-2022 Evaluation note* Encounter Date Diagnosis [...] Other specified postprocedural states (ICD-10 - Z98.890) [employer] Other 04-20-2022 Evaluation note* Encounter Date Diagnosis [...] Progress activity as tolerated. Call with questions/concerns. [employer] Other 03-23-2022 Evaluation note* Encounter Date Diagnosis Assessment Notes Treatment Notes Treatment Clinical Notes Apr, Other specified postprocedural states (ICD-10 - Z98.890) Radiographs reviewed with patient. Patient is progressing well from surgery. Continue occupational therapy exercises. Call with questions/concerns . Apr, Other fractures of lower end of left radius, subsequent encounter for closed fracture with routine healing (ICD-10 - S52.592D) [employer] Other 01-20-2022 Evaluation note* Encounter Date Diagnosis [...] or reaches 80% or she develops symptoms [employer] Other 10-21-2021 Evaluation note* Encounter Date Diagnosis [...] suggested ice and elevation with compression stockings. [employer] Other 09-30-2021 Evaluation note* Encounter Date Diagnosis [...] classify this is asymptomatic recurrent stenoses currently. [employer] Other Evaluation + Plan note No data available for this section [facility] Evaluation noteNo assessment information available [employer] [facility] [employer] Work Phone: Evaluation noteNo InformationNort [employer] Other Evaluation note* Diagnosis Onset Date Resolution Status JASEN (acute kidney injury) ac [place] AMS (altered mental status) acute Impaired mobility and activities of daily living acute Symptomatic bradycardia acut e [employer] Work Phone: Evaluation note* Diagnosis Onset Date Resolution Status JASEN (acute kidney injury) ac [place] AMS (altered mental status) acute Impaired mobility and activities of daily living acute Symptomatic bradycardia acut e H/O traumatic brain injury c hronic HLD (hyperlipidemia) chronic HTN, goal below 140/90 chron ic [facility] Work Phone: Evaluation note* Diagnosis Anxiety and depression (CMS/HCC)- Primary documented [facility] encounter [facility] Diagnosis Dizzy- Primary Dizziness and giddiness 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 (CMS-HCC) Dizziness Dizziness and giddiness documented in this encounter [facility] Diagnosis Onset Date Resolution Status Carotid stenosis acute Carotid stenosis acute [facility] Work Phone: Evaluation note* Diagnosis Onset Date Resolution Status Carotid stenosis acute Carotid stenosis acute UTI (urinary tract infection) noneactive Contact with or exposure to viral disease noneactive [facility] Work Phone: Evaluation note* Diagnosis Onset Date Resolution Status UTI (urinary tract infection) noneactive Contact with or exposure to viral disease noneactive [facility] Work Phone: Evaluation note* Diagnosis Onset Date Resolution Status UTI (urinary tract infection) noneactive Contact with or exposure to viral disease noneactive Internal carotid artery stent present acute [facility] Work Phone: Hisqxee general Narrative - Reported* Type Description Date [...] History childbirth Hospitalization History X2 strokes 2019 [employer] Other Hisrrju general Narrative - Reported* Type Description Date [...] History childbirth Hospitalization History X2 strokes 2018 [employer] Other Hospital Discharge instructions Additional Instructions Please call and schedule an appointment with your established Right Of Way Cutter. We attempted to make this appointment for you but the office was currently unavailable.[facility] Work Phone: Hospital Discharge instructions No data available for this section [facility] Center[facility]ructionsNot on filedocumented in this encounter [facility] MindsInstructionsNot on filedocumented in this encounter [facility] MindsInstructionsNot on filedocumented in this encounter [facility] No data available for this section [facility] Reason for referral (narrative)* Consultation (Routine) - Pending Review Specialty Diagnoses / Procedures Referred By Armando walker Referred To Contact Neurology Diagnoses Rabia Hunt PA-C [address] [place] [address] [address] [place] [address] Martin Espinosa MD [address] [place] [address], [address], [address] [place] [address] Referral ID Status Reason Start Date Expiration Date Visits Requested Visits Authorized [id number] Pending Review Specialty Services Required 03/20/2023 03/19/2024 1 1 [facility] Summary Purpose Family History No Family History Records Found Relationship Condition Age at Onset Recorded Date/T darrell father Malignant neoplasm of prostate Unknown Malignant neoplasm of bone Unknown Type 2 diabetes mellitus Unknown Not Specified Malignant neoplasm of brain Unknown Not Specified Malignant neoplasm of breast Unknown natural son Down syndrome Unknown daughter Malignant neoplasm of lung Unknown brother Myocardial infarction Unknown Relationship Condition Age at Onset Recorded Date/T darrell father Malignant neoplasm of prostate Unknown Malignant neoplasm of bone Unknown Type 2 diabetes mellitus Unknown Not Specified Malignant neoplasm of brain Unknown Not Specified Malignant neoplasm of breast Unknown natural son Down syndrome Unknown daughter Malignant neoplasm of lung Unknown brother Myocardial infarction Unknown father Malignant neoplasm Unknown Unknown family member Unknown Not Specified Unknown Malignant neoplasm Unknown sister Unknown Family history of lung cancer Unknown Relationship Condition Age at Onset Recorded Date/T darrell father Malignant neoplasm of prostate Unknown Malignant neoplasm of bone Unknown Type 2 diabetes mellitus Unknown mother Malignant neoplasm of brain Unknown mother Malignant neoplasm of breast Unknown son Down syndrome Unknown daughter Malignant neoplasm of lung Unknown brother Myocardial infarction Unknown father Malignant neoplasm Unknown Unknown family member Unknown mother Unknown Malignant neoplasm Unknown sister Unknown Family history of lung cancer Unknown Advance Directives No Advanced Directives Records [...] Code 04/05/2018 10:14 AM 04/05/2018 3:35 PM Latest Code Status on File Code Status Date Activated Date Inactivated Comments Full Code 07/22/2018 6:33 AM 07/24/2018 4:48 PM Code Status History Code Status Date Activated Date Inactivated Comments Full Code 04/05/2018 3:35 PM 04/10/2018 5:18 PM Full Code 04/05/2018 10:14 AM 04/05/2018 3:35 PM Advance Directive Response Recorded Date/ Time Advance Directives No May 12 4:06pm Chief Complaint and Reason for Visit Chief [...] w/ residual d ysarthuria; word finding Dysuria Chief Complaint K CVA Chief Complaint I65.23 1 year follow up; Carotid U/S at 8:30am carotis stenosis carotis stenosis 4 week follow up; TCAR Reason for Visit Carotid stenosis Carotid stenosis Chief Complaint I65.23 1 year follow up; Carotid U/S at 8:30am carotis stenosis carotis stenosis 4 week follow up; TCAR Poss uti Reason for Visit Carotid stenosis Carotid stenosis UTI (urinary tract infection) Contact with or exposure to viral disease Chief Complaint Poss uti N30.00 3 MONTH FOLLOW UP; CAROTID DUPLEX 9:30A I65.23 Reason for Visit UTI (urinary tract i nfection) Contact with or exposure to viral disease Chief Complaint Poss uti N30.00 3 MONTH FOLLOW UP; CAROTID DUPLEX 9:30A I65.23 Reason for Visit UTI (urinary tract i nfection) Contact with or exposure to viral disease Internal carotid artery stent present Additional Source Comments INFORMATION SOURCE (unrecogn ized section and content) DATE CREATED AUTHOR 03/09/2020 [facility] DATE CREATED AUTHOR AUTHOR'S ORGANIZ ATION 12/03/2021 [facility] DATE CREATED AUTHOR AUTHOR'S ORGANIZ ATION 02/28/2022 [facility] DATE CREATED AUTHOR AUTHOR'S ORGANIZ ATION 05/13/2023 [facility] DATE CREATED AUTHOR AUTHOR'S ORGANIZ ATION 07/04/2023 [facility] DATE CREATED AUTHOR AUTHOR'S ORGANIZ ATION 07/16/2023 [facility] DATE CREATED AUTHOR AUTHOR'S ORGANIZ ATION 07/18/2023 [facility] DATE CREATED AUTHOR AUTHOR'S ORGANIZ ATION 08/09/2023 [facility] DATE CREATED AUTHOR AUTHOR'S ORGANIZ ATION 08/11/2023 [facility] DATE CREATED AUTHOR AUTHOR'S ORGANIZ ATION 09/13/2023 [facility] DATE CREATED AUTHOR AUTHOR'S ORGANIZ ATION 10/23/[address] [facility] [facility] EPIC REASON FOR VISIT (unrecogniz ed section and content) Reason Onset Date Comments paperwork 01/24/2023 Reason Onset Date Comments NEW PATIENT REFERRAL 03/28/2023 Reason Onset Date Comments Sooner Appt 04/10/2023 Care Teams (unrecognized sec tion and content) Team Status: Active Member Role Status Dates Shaikh Barb MD Primary Care Provider Active Team Status: Inactive Member Role Status Dates Shaikh Barb MD Primary Care Provide r, Attending Provider Active Start: January 21, 2023 End: January 21, 2023 Team Status: Inactive Member Role Status Dates Shaikh Barb MD Primary Care Provider Active Denver Juarez MD Attending Provider Active Team Status: Inactive Member Role Status Reid Day MD Primary Care Provider Active Susie Arrington MD Attending Provider Active Team Status: Active Member Role Status Dates Gerry Godwin MD Primary Care Provider Active Shaikh Barb MD Attending Provider Active Team Status: Active Member Role Status Reid Day MD Primary Care Provider Active Rafiq Bahena DO Emergency Provider Active Ashleigh Cruz MD Admit Provider, Attending P ross Active Shira Castañeda RN Other Provider Active Tye Mendoza DO Other Provider Active Betito Arellano MD Other Provider Active Aneesh Zendejas MD Other Provider Active Shavon Leos MD Other Provider Active Brayan Ribera MD Other Provider Active Patience Brown APRN Other Provider Active Shefali Garibay MD Other Provider Active Vannessa Nava MD Other Provider Active Alissa Young MD Other Provider Active Maddie Garcia [facility]- Other Provider Active Team Status: Inactive Member Role Status Reid Day MD Primary Care Provider Active Rafiq Bahena DO Emergency Provider Active Ashleigh Cruz MD Admit Provider Active Anna Valladares MD Attending Provider Active Team Status: Inactive Member Role Status Dates Gerry Godwin MD Primary Care Provider Active Shaikh Barb MD Attending Provider Active Team Status: Inactive Member Role Status Dates Shaikh Barb MD Primary Care Provider Active Earline Harris APRN Attending Provider Active Chart Snatcher Relationship Specialty Start Date End Date Gerry Godwin MD [address] [place] [address] PCP - General Family Medicine 04/07/18 Chart Snatcher Relationship Specialty Start Date End Date Shaikh Day MD PCP - General Internal Medicine 08/30/22 Chart Snatcher Relationship Specialty Start Date End Date Gerry Godwin MD [address] [place] [address] PCP - General Family Medicine 04/07/18 Chart Snatcher Relationship Specialty Start Date End Date Gerry Godwin MD [address] [place] [address] PCP - General Family Medicine 04/07/18 Chart Snatcher Relationship Specialty Start Date End Date Gerry Godwin MD [address] [place] [address] PCP - General Family Medicine 04/07/18 Team Status: Inactive Member Role Status Dates Shaikh Barb MD Primary Care Provider Active Start: April 09, 2023 End: April 09, 2023 Denver Juarez MD Attending Provider Active Start: April 09, 2023 End: April 09, 2023 Team Status: Inactive Member Role Status Dates Shaikh Barb MD Primary Care Provider Active Start: April 09, 2023 End: April 09, 2023 ANA ThompsonC Attending Provider Active Start: April 09, 2023 End: April 09, 2023 Team Status: Inactive Member Role Status Reid Day MD Primary Care Provider Active Start: April 12, 2023 End: April 13, 2023 Denver Juarez MD Admit Provider , Attending Provider Active Start: April 12, 2023 End: April 13, 2023 Team Status: Active Member Role Status Reid Day MD Primary Care Provider Active Start: April 12, 2023 Denver Juarez MD Admit Provider , Attending Provider, Other Provider Active Start: April 12, 2023 Team Status: Inactive Member Role Status Reid Day MD Primary Care Provider Active Start: May 09, 2023 End: May 09, 2023 Denver Juarez MD Attending Provider Active Start: May 09, 2023 End: May 09, 2023 Team Status: Inactive Member Role Status Reid Day MD Primary Care Provider Active Start: May 11, 2023 End: May 11, 2023 Hannah Still NP-C Attending Provider Active S tart: May 11, 2023 End: May 11, 2023 Team Status: Inactive Member Role Status MOHINDER Samuels Attending Provider Active S tart: May 12, 2023 End: May 12, 2023 Team Status: Inactive Member Role Status Dates Hannah Still NP-C Attending Provider Active S tart: May 12, 2023 End: May 12, 2023 Shaikh Barb MD Primary Care Provider Active Start: May 12, 2023 End: May 12, 2023 Team Status: Inactive Member Role Status Reid Day MD Primary Care Provider Active Start: August 08, 2023 End: August 08, 2023 Denver Juarez MD Attending Provider Active Start: August 08, 2023 End: August 08, 2023 Team Status: Active Member Role Status Reid Day MD Primary Care Provider Active Start: August 08, 2023 Feliciat Sumner NP-C Attending Provider Active Start: August 08, 2023 Team Status: Inactive Member Role Status Dates Shaikh Barb MD Primary Care Provider Active Start: August 08, 2023 End: August 08, 2023 MOHINDER Thompson Attending Provider Active Start: August 08, 2023 End: August 08, 2023 Goals (unrecognized section and content) Goals may [...] BE BASED ON THE PRIMARY CLINICAL RECORDS. [employer] [facility]. provides no warranty or guarantee of the accuracy or completeness of information in this document.
[2023-10-26 09:40] LABS: Basophils Absolute Auto 0.1 10^3/uL (0.0-0.1); Eosinophils Absolute Auto 0.5 10^3/uL (0.0-0.7); Eosinophils Percent Auto 9.8 % (0.9-7.0); Hematocrit 44.3 % (36.0-48.0); Hemoglobin 14.4 g/dL (12.0-16.0); Immature Granulocytes Abs Auto 0.01 10^3/uL (0.00-0.03); Immature Granulocytes Pct Auto 0.2 % (0.0-0.5); Lymphocytes Absolute Auto 1.7 10^3/uL (1.2-3.8); Lymphocytes Percent Auto 34.6 % (20.5-60.0); Mean Corpuscular HGB Conc 32.5 g/dL (29.9-35.2); Mean Corpuscular Hemoglobin 29.1 pg (26.7-34.0); Mean Corpuscular Volume 89.7 fL (81.0-99.0); Mean Platelet Volume 9.9 fL (9.5-13.5); Monocytes Absolute Auto 0.4 10^3/uL (0.3-0.8); Monocytes Percent Auto 7.6 % (1.7-12.0); Neutrophils Absolute Auto 2.3 10^3/uL (1.4-6.5); Neutrophils Percent Auto 46.8 % (43.0-75.0); Platelet Count 148 10^3/uL (150-450); Red Blood Count 4.94 10^6/uL (4.20-5.40); Red Cell Distribution Width 12.7 % (11.0-15.0); White Blood Count 4.9 10^3/uL (4.0-11.0)
[2023-10-26 09:46] LABS: Bilirubin Urine NEGATIVE (NEGATIVE); Blood Urine TRACE-I (NEGATIVE); Clarity Urine CLEAR (CLEAR); Color Urine LT. YELLOW (YELLOW); Glucose Urine UA NEGATIVE (NEGATIVE); Ketones Urine NEGATIVE (NEGATIVE); Leukocyte Esterase Urine MODERATE (NEGATIVE); Nitrite Urine POSITIVE (NEGATIVE); Protein Urine NEGATIVE (NEG/TRACE); Specific Gravity Urine 1.025 (1.005-1.025)
[2023-10-26 09:51] LABS: Urine Microscopic Indicated YES
[2023-10-26 09:55] LABS: Microalbumin Urine Random <1.3 mg/dL (<=30.0)
[2023-10-26 09:56] LABS: Bacteria Urine LARGE #/HPF (NONE SEEN); Cast Seen? NONE SEEN #/LPF (NONE SEEN); Crystals Seen? None Seen #/HPF (None Seen); Mucus Urine TRACE (NONE SEEN); RBC Urine 0-2 #/HPF (0-2); Squamous Epithelial Cell Urine MODERATE #/LPF (NONE/RARE); WBC Urine 20-50 #/HPF (NONE SEEN)
[2023-10-26 09:57] LABS: Urine Culture Indicated YES
[2023-10-26 10:05] LABS: Alanine Aminotransferase 23 U/L (14-59); Albumin Globulin Ratio 1.2; Albumin Level 3.3 g/dL (3.4-5.0); Alkaline Phosphatase 87 U/L (46-116); Anion Gap 11.5; Aspartate Amino Transferase 21 U/L (15-37); Bilirubin Total 0.7 mg/dL (0.2-1.0); Calcium 8.9 mg/dL (8.5-10.1); Carbon Dioxide 26.9 mmol/L (21.0-32.0); Chloride 109 mmol/L (98-107); Cholesterol 124 mg/dL (<=200); Estimated GFR (African America >60 (>=60); Estimated GFR (Non-African Ame >60 (>=60); Globulin 2.7 g/dL; Glucose 81 mg/dL (74-106); HDL Cholesterol 63 mg/dL (40-60); Potassium 3.4 mmol/L (3.5-5.1); Sodium 144 mmol/L (136-145); Triglycerides 85 mg/dL (<=150)
== END 2023-10-26 09:05 | disposition home or self-care (01) ==
LOC: LAB 09:04
PROVIDERS: PCP Nurse Practitioner; Visit Provider Nurse Practitioner
DX: E78.2 Mixed hyperlipidemia (principal); I63.9 Cerebral infarction, unspecified; I25.10 Atherosclerotic heart disease of native coronary artery without angina pectoris; I10 Essential (primary) hypertension; R82.998 Other abnormal findings in urine
CPT/HCPCS: 36415; 80053; 80061; 81001; 82043; 85025; 87086; 87150; 87186

== ENCOUNTER 2023-11-16 10:07 | Outpatient (OUT) | payer MEDICARE, SELFPAY ==
--- OUTSIDE RECORDS SUMMARY | 2023-11-16 10:10 | XMS_ITS | CCD ---
Author Organization [facility] Inform ion Partnership [facility] Care Team Providers Care Painter Apprentice Name Role Phone Denver Juarez Unavailable Susie Arrington Unavailable MD Eddy Day Primary Care Provider MD Susie Arrington R Attending Provider MD Gerry Godwin Primary Care Provider MD Eddy Day Attending Provider MD Denver Juarez Attending Provider Ilda Das Unavailable MD Eddy Day Primary Care Provider MD Gerry Godwin Primary Care Provider MD Eddy Day Attending Provider DO Rafiq Bahena Emergency Provider Al MD Ashleigh Roche Admit Provider MD Ashleigh Card Attending Provider [phone] LESTER Castañeda Other Provider Unavailable DO Tye Mendoza Other Provider [phone] MD Betito Arellano Other Provider [phone] MD Aneesh Zendejas Other Provider MD Shavon Leos Other Provider [phone] MD Brayan Ribera Other Provider CÉSAR Arenas Other Provider MD Shefali Garibay Other Provider MD Vannessa Nava Other Provider MD Alissa Young Other Provider Jose [facility] Maddie Westbrook Other Provider [phone] MD Anna Valladares Attending Provider [phone] NO FAMILY PHYSICIAN, 837 Primary Care Unavail able MIKE VIDES, - LUIS Attending Unavaila MD Eddy Swenson Primary Care Provider DO Rafiq Bahena Emergency Provider [phone] Al MD Ashleigh Roche Admit Provider MD Anna Valladares Attending Provider [phone] MD Gerry Godwin Primary Care Provider [phone] MD Eddy Day Attending Provider LIZ L[address] [...] DE OLIVEIRA H Admitting Unavailable FAWWAD, DE OLIVERIA H Attending Unavailable FAWWAD, DE OLIVEIRA H Primary Care Unavailable FAWWAD, DE OLIVEIRA H Consulting Unavailable MIRI BALTAZAR Consulting Unavailable FAWWAD, DE OLIVEIRA H Admitting Unavailable FAWWAD, DE OLIVEIRA H Attending Unavailable FAWWAD, DE OLIVEIRA H Primary Care Unavailable FAWWAD, DE OLIVEIRA H Consulting Unavailable Indra Lozada Consulting Unavailable FAWWAD, DE OLIVEIRA H Admitting Unavailable FAWWAD, DE OLIVEIRA H Attending Unavailable FAWWAD, DE OLIVERIA H Primary Care Unavailable FAWWAD, DE OLIVEIRA [...] Physician MD Lazaro Dayikh Primary Care Provider [phone] MD Eddy Day Attending Provider Shaik Day MDh Primary Care Provider [phone] MD Lazaro Dayikh Primary Care Provider MD Denver Juarez Attending Provider MD Denver Juarez Admit Provider MOHINDER Still Attending Provider Hannah Still Attending Unavailable Hannah Still Admitting [...] sources) Penicillin G Drug Allergy 02-20-2023 Unknown [facility] (13 sources) Penicillins; 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: [PENICILLINS] Allergy to substance 02-19-2007 [facility] (1 source) Penicillin Drug Allergy 10-22-2012 [facility] (5 sources) Penicillin; 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: [penicillin] Drug Allergy [facility] [place] Medications Current Medications Medication Drug Class(es) Dates Sig (Normalized) Sig (Original) acetaminophen 325 mg / HYDROcodone bitartrate 5 mg oral tablet (1 source) Opioid Agonist Start: 03-31-2021 take 1-2 tablets by mouth every four to six hours as needed HYDROcodone-Acet aminophen 5-325 MG 1-2 tablet as needed Orally every 4-6 hrs for 7 days Mar, Active [id number] 200 actuat albuterol 0.09 mg/actuat metered dose [...] 2021 11:00pm take 2 tablets by mo sch every other day Furosemide 20 MG 2 [...] 22, 2021 1:21pm take 1 capsule by [facility] once daily Metoprolol Succinate 25 [...] 14 cap(s), Refills(s) 0, Pharmacy: [facility] #[id number], 160, cm, 07/15/23 12:40:00 EDT, Height/Length Dosing, [...] 2023 1:00am Start: 03-07-2023 Potassium Chlo ride (Yts-Nvdl-Xma M10) 10 mEq oral tablet, extended release [...] 90 cap(s), Refills(s) 3, Pharmacy: [facility] #[id number], 160, cm, 07/15/23 12:40:00 EDT, Height/Length Dosing, [...] 12, 2018 10:29am take 1 capsule by [facility] every twenty-four hours Docusate Sodium [...] disease (7 sources) Atherosclerotic heart disease of [place] coronary artery without angina pectoris; 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: [Coronary [...] Resolved: 2 Episodic Other aftercare (1 source) ribber (current) use of aspirin; 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: [PRISON CURRENT USE OF ASPIRIN] Onset: 2 Episodic Other aftercare (1 source) 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; 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: [OTH PRISON CURRENT DRUG THERAPY] Onset: 2 Episodic Other aftercare (1 source) Encounter for follow-up examination after completed treatment for conditions other than malignant neoplasm; 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: [ENC F/U EX AFTR CMPL TX NOT MAL SU] Onset: 2 Episodic Other aftercare (1 source) ribber (current) use of antithrombotics/antipl atelets; 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: [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/ANTIPLATL ETS] Onset: 2 Episodic Other circulatory [...] Range Facility Office Visiton 09-11-2023 Follow-up visit [id number] Ozzie Gifford 1950 F Date Provider Department [place] [facility] Family History Problem Relation Age of Onset Hypertension Mother Hypertension Father Heart attack Brother Family Status - Relation Status Age at Mother Father Brother Level of Service:71772 [place] OFFICE/OUTPATIENT ESTABLISHED MOD MDM 30 MIN Normal [facility] Reminderson 08-09-2023 Reminders Reminders From: Christina Saul To: EU - Administrative; Sent: 08/09/2023 10:15:11 EDT Show up: 04/13/2024 10:14:00 EST Subject: 1 yr f/u Due Date/Time: 07/14/2024 10:14:00 EDT Reminder/Recall patient seen on 07/15/2023. Patient needs a 1 yr f/u w/ PVR with AO in [place]. Appointment due by 07/14/2024 Ch[place]el [facility] US carotid doppler BIon 07-13 US carotid doppler BI [facility] [address] [place] [address] Ultrasound Report Signed Patient: Ozzie Gifford MR#: [id number] : 1950 Acct:[id number] Age/Sex: 73 / F ADM Date: 08/08/23 Loc: [facility] Room: Type: [facility] Attending Dr: Felicita Sumner [employer] Ordering Provider: Felicita Sumner APRN Date of [...] Denver Juarez MD08/08/2023 2:26 PM Dictation Location: [facility] Tech: Judy Dobbins Transcribed By: [facility] 08/08/23 1426 Dictated By: Denver Juarez MD 08/08/23 1426 Signed By: 08/08/23 1426 Normal [facility] C Urineon 07-17-2023 Bacteria identified Cx Nom (U) Microbiology PROCEDURE: Urine Culture [R1] SOURCE: U CleanCatch BODY SITE: COLLECTED DATE/TIME: 07/15/2023 13:56 EDT RECEIVED DATE/TIME: 07/15/2023 18:58 EDT START DATE/TIME: 07/15/2023 18:58 EDT FREE TEXT SOURCE: Ingrid SANCHEZN, CARPENTER INSPECTOR-C, Ingrid SANCHEZN, CARPENTER INSPECTOR-C, Carmen X Carmen X FINAL REPORTS Final [...] Locations R1: This test was performed at: [facility], [address] [place] [address], [id number]- , [place], Normal [facility] Comment on above: Performed By: #### 2 [id number] #### [facility] [address] [place] [address] Ambulatory Visit Summaryon 0 07-15-2023 Ambulatory Visit [...] mg ER Tab) potassium chloride (Potassium Chloride (Zxw-Ucrg-Ahm M10) 10 mEq oral tablet, extended release) [...] TAB) 0 Unchanged potassium chloride (Potassium Chloride (Avj-Eozc-Een M10) 10 mEq oral tablet, extended release) [...] you for choosing us for your care. [facility] Patient Educationon 07-15-19 Patient Education Obstetrics [...] this condition includes: ? Antibiotic medicine. ? Drmn-yxe-ywtcbys medicines to treat discomfort. ? Drinking enough [...] these instructions at home: Medicines ? Take nwqc-qsl-vsncczm and prescription medicines only as told by [...] Document Revie (more content not included)... Normal [facility] Urology Office/Clinic Noteon 07-15-2023 Urology Office/Clinic Note [...] with voice recognition artificial intelligence software, specifically [employer], [employer] and or [employer]. 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 She is tolerating it well without side effects. Refill sent to pharmacy. -Continue timed voids, voiding maneuvers -Follow-up 1 year for med recheck, sooner if needed Urinary incontinence without sensory awareness Ordered: trospium, 60 mg = 1 cap(s), Oral, qAM, X 90 day(s), # 90 cap(s), Refills(s) 3, Pharmacy: [facility] #[id number], 160, cm, 07/15/23 12:40:00 EDT, Height/Length Dosing, 60, kg, 07/15/23 12:40:00 EDT, Weight Dosing trospium, 60 mg = 1 cap(s), Oral, qAM, X 90 day(s), # 90 cap(s), Refills(s) 0, Pharmacy: [facility] #[id number], 160, cm, 03/07/23 10:58:00 EST, Height/Length Dosing, 60, kg, 03/07/23 10:58:00 EST, Weight Dosing 55851 Measure Post Void residual urine and/or bladder capacity by US- non-imaging 3. White matter disease (R90.82: White matter disease, unspecified) [facility] inpatient stay 03/01/23 - for head stuff per patient. CT brain w/o con 03/01/23 - stable atrophy and white matter disease [1] Patient is here with her today, states that she is following with neurology regarding her memory and worsening ambulation. Ordered: 99394 Measure Post Void residual urine and/or bladder capacity by US- non-imaging Orders: Urnls Dip Stick Auto w/o Microscopy POC 75162 Follow-up With When Contact Information MITRA Quintero APRN, Carmen Rm, FAM, URL Additional Instructions: 1 yr w/ PVR Patient Education Urinary Tract Infection, Adult Urinary Incontinence Problem List/Past Medical History Ongoing Dysuria Headache Hypertension Incontinence without sensory awareness Strok (more content not included)... Normal [facility] Comment on above: Result Comment: Elec tronically Signed By: MITRA Quintero APRN, Carmen Rm\.br\Date and Time Signed: 07/15/23 13:40 EDT Laboratory - Chemistry and C hemistry - challengeon 05-11-2023 Bilirubin Ql (U) Negative [facility] Glucose (U) [Mass/Vol] [facility] Ketones Ql (U) trace [facility] pH (U) 5.5 [pH] [facility] Specific gravity (U) [Rel density] 1.025 [facility] Urobilinogen (U) [Mass/Vol] 0.2 mg/dL [facility] Laboratory - Specimen inform ationon 05-11-2023 Appearance (U) clear [facility] Color (U) darkyellow [facility] Laboratory - Urinalysison Leukocyte esterase Test strip Ql (U) small [facility] Nitrite Ql (U) Positive [facility] Protein Ql (U) Negative [facility] No Panel Informationon 05-10 Urine Occult Blood Negative [facility] Urine Cultureon 05-11-2023 Bacteria identified Cx Nom (U) ORGANISM: Gram Negative Bacilli (O:GNB) Ledbetter Count >100,000 PERFORMED BY: [facility] [address] [place] [address] PATHOLOGIST [place] [place] COUNSEL YOCASTA BYRNE M.D. Normal [facility] Comment on above: Performed By: #### C UU #### [facility] [address] Bacteria identified Cx Nom (U) ORGANISM: Klebsiella pneumoniae (O:KLEPNE) Ledbetter Count >100,000 Aerobic QUINTIN Charge ([id number]) ---- [...] RESISTANT TO ALL B-LACTAM DRUGS. PERFORMED BY: [place] [address] PATHOLOGIST [place] [place] COUNSEL YOCASTA BYRNE M.D. Normal [facility] Comment on above: Performed By: #### C UU #### [facility] [address] [place], [place] [id number] [facility] Urine culture routineon 04-13 Bacteria identified Cx Nom (U) Klebsiella pneumoniae Abnormal [facility] 36on 04-19-2023 36 Note faxed to vascular surgery. Normal [facility] Activated Clotting Timeon Activated Clotting Time POC 298 s High 90-139 [facility] Comment on above: Result Comment: Refe rence Range: 90-139 (Non-heparinized) PERFORMED BY: [place] [address] PATHOLOGIST [place] [place] COUNSEL YOCASTA BYRNE M.D. Performed By: #### A CT #### [facility] [address] [place], [place] [id number] [facility] Activated Clotting Time POC 163 s High 90-139 [facility] Comment on above: Result Comment: Refe rence Range: 90-139 (Non-heparinized) PERFORMED BY: [place] [address] PATHOLOGIST [place] [place] COUNSEL YOCASTA BYRNE M.D. Performed By: #### A CT #### [address] Automated basophil %Ordered By: Vish Nazario on 04-12-2023 Basophils/100 WBC (Bld) 0.8 % Normal . [facility] Comment on above: Performed By: #### C BC #### [address] Automated basophil countOrde red By: Vish Nazario on 04-12-2023 Basophils (Bld) [#/Vol] 0.0 10*3/uL Normal 0.0-0.2 [facility] Comment on above: Result Comment: PERF ORMED BY: [place] [address] PATHOLOGIST [place] [place] COUNSEL YOCASTA BYRNE M.D. Performed By: #### C BC #### [address] Automated blood monocyte cou ntOrdered By: Vish Nazario on 04-12-2023 Monocytes (Bld) [#/Vol] 0.4 10*3/uL Normal 0.0-0.8 [facility] Comment on above: Performed By: #### C BC #### [address] Automated eosinophil %Ordere d By: Vish Nazario on 04-12-2023 Eosinophils/100 WBC (Bld) 6.8 % Normal . [facility] Comment on above: Performed By: #### C BC #### [address] Automated eosinophil countOr dered By: Vish Nazario on 04-12-2023 Eosinophils (Bld) [#/Vol] 0.4 10*3/uL Normal 0.0-0.45 [facility] Comment on above: Performed By: #### C BC #### [address] Automated monocyte %Ordered By: Vish Nazario on 04-12-2023 Monocytes/100 WBC (Bld) 7.8 % Normal . [facility] Comment on above: Performed By: #### C BC #### [address] Automated neutrophil %Ordere d By: Vish Nazario on 04-12-2023 Neutrophils/100 WBC (Bld) 58.7 % Normal . [facility] Comment on above: Performed By: #### C BC #### [address] Basic Metabolic Panelon 03-0 Creatinine Clr Calc Pharmacy 51.50 Normal [facility] Comment on above: Result Comment: PERF ORMED BY: [place] [address] PATHOLOGIST [employer] [place] COUNSEL YOCASTA BYRNE M.D. Performed By: #### B MP #### [address] GFR/1.73 sq M.predicted MDRD (S/P/Bld) [Vol rate/Area] mL/min/{1.73_m2} Normal [facility] Comment on above: Performed By: #### B MP #### [address] Blood activated clotting johann e by coagulation assayOrdered By: Denver Juarez on 04-12-2023 ACT Coag (Bld) 298 s 90-139 [facility] Comment on above: Reference Range: 90- 139 (Non-heparinized) Calcium [Mass/volume] in Ser um or PlasmaOrdered By: Vish Nazario on 04-12-2023 Calcium [Mass/Vol] 9.3 mg/dL Normal 8.6-10.3 [facility] Comment on above: Performed By: #### B MP #### [address] Carbon dioxide, total [Moles /volume] in Serum or PlasmaOrdered By: Vish Nazario on 04-12-2023 CO2 [Moles/Vol] 29.4 mmol/L Normal 21.0-31.0 [facility] Comment on above: Performed By: #### B MP #### [address] Chloride [Moles/volume] in S yolanda or PlasmaOrdered By: Vish Nazario on 04-12-2023 Chloride [Moles/Vol] 110 mmol/L High 98-107 [facility] Comment on above: Performed By: #### B MP #### [address] Complete Blood Count Auto Di ffon 04-12-2023 Mean Corpuscular HGB Conc 34.3 g/dL Normal 32.0-35.0 [facility] Comment on above: Performed By: #### C BC #### [address] NRBC% 0.2 /100{WBC} Normal 0-0.5 [facility] Comment on above: Performed By: #### C BC #### [address] Creatinine [Mass/volume] in Serum or PlasmaOrdered By: Vish Nazario on 04-12-2023 Creatinine [Mass/Vol] 0.81 mg/dL Normal 0.60-1.20 [facility] Comment on above: Performed By: #### B MP #### [address] ECG 12 lead ECGon 04-12-2023 ECG 12 lead ECG [facility] [place] [address] Electrocardiograph Report Signed Patient: Ozzie Gifford MR#: [id number] : 1950 Acct:[id number] Age/Sex: 72 / F ADM Date: 04/12/23 Loc: Room: [address] [place] [address] Type: DIS IN Attending Dr: Denver Juarez [...] no longer present. Confirmed by Re Douglas ([id number]) on 04/13/2023 7:03:50 PM Referred By: Electronically Signed By:Re Douglas Transcribed By: MUS Signed By Re Douglas MD 4 1903 Normal [facility] Erythrocyte distribution wid th [Ratio] by Automated countOrdered By: Vish Nazario on 04-12-2023 Erythrocyte distribution width (RBC) [Ratio] 13.7 % Normal 11.9-15.3 [facility] Comment on above: Performed By: #### C BC #### [facility] [address] Erythrocytes [#/volume] in B lood by Automated countOrdered By: Vish Nazario on 04-12-2023 RBC (Bld) [#/Vol] 5.12 10*6/uL High 3.60-5.00 [facility] Comment on above: Performed By: #### C BC #### [facility] [address] Glucose [Mass/volume] in Ser um or PlasmaOrdered By: Vish Nazario on 04-12-2023 Glucose [Mass/Vol] 77 mg/dL Normal 70-100 [facility] Comment on above: ADA recommended refe rence rangeRandom Glucose Reference Range is dependent on time and content of last meal. Glucose of more than 200 mg/dL in a nonstressed, ambulatory subject supports the diagnosis of Diabetes Mellitus. Result Comment: [place] om Glucose Reference Range is dependent on time and content of last meal. Glucose of more than 200 mg/dL in a nonstressed, ambulatory subject supports the diagnosis of Diabetes Mellitus. ADA recommended reference range Performed By: #### B MP #### [address] Hematocrit [Volume Fraction] of Blood by Automated countOrdered By: Vish Nazario on 04-12-2023 Hematocrit (Bld) [Volume fraction] 44.3 % Normal 34.0-46.4 [facility] Comment on above: Performed By: #### C BC #### [address] Hemoglobin [Mass/volume] in BloodOrdered By: Vish Nazario on 04-12-2023 Hemoglobin (Bld) [Mass/Vol] 15.2 g/dL Normal 11.8-15.4 [facility] Comment on above: Performed By: #### C BC #### [address] Leukocytes [#/volume] correc henry for nucleated erythrocytes in Blood by Automated counOrdered By: Vish Nazario on 04-12-2023 WBC corrected for nucl RBC Auto (Bld) [#/Vol] 5.5 10*3/uL 3.8-11.6 [facility] Leukocytes [#/volume] in Blo od by Automated countOrdered By: Vish Nazario on 04-12-2023 WBC (Bld) [#/Vol] 5.5 10*3/uL Normal 3.8-11.6 [facility] Comment on above: Performed By: #### C BC #### [place] [address] [place] Lymphocytes [#/volume] in Bl ood by Automated countOrdered By: Vish Nazario on 04-12-2023 Lymphocytes (Bld) [#/Vol] 1.4 10*3/uL Normal 1.00-4.8 [facility] Comment on above: Performed By: #### C BC #### [place] [address] [place] Lymphocytes/100 leukocytes i n Blood by Automated countOrdered By: Vish Nazario on 04-12-2023 Lymphocytes/100 WBC (Bld) 25.9 % Normal . [facility] Comment on above: Performed By: #### C BC #### [address] MCH [Entitic mass] by Automa henry countOrdered By: Vish Nazario on 04-12-2023 MCH (RBC) [Entitic mass] 29.6 pg Normal 24.7-34.3 [facility] Comment on above: Performed By: #### C BC #### [address] MCHC Auto (RBC) [Mass/Vol]Or dered By: Vish Nazario on 04-12-2023 MCHC (RBC) [Mass/Vol] 34.3 g/dL 32.0-35.0 [facility] MCV [Entitic volume] by Auto mated countOrdered By: Vish Nazario on 04-12-2023 MCV (RBC) [Entitic vol] 86.4 fL Normal 80-100 [facility] Comment on above: Performed By: #### C BC #### [address] Neutrophils [#/volume] in Bl ood by Automated countOrdered By: Vish Nazario on 04-12-2023 Neutrophils (Bld) [#/Vol] 3.2 10*3/uL Normal 1.8-7.7 [facility] Comment on above: Performed By: #### C BC #### [address] No Panel InformationOrdered By: Vish Nazario on 04-12-2023 Estimated GFR (CKD-EPI) > 60.0 mL/Min [facility] Creatinine Clearance (Chem 51.50 [facility] Nucleated erythrocytes [Pres ence] in Blood by Automated countOrdered By: Vish Nazario on 04-12-2023 Nucleated RBC Auto Ql (Bld) 0.2 /100{WBC} 0-0.5 [facility] Platelet mean volume [Entiti c volume] in Blood by Automated countOrdered By: Vish Nazario on 04-12-2023 Platelet mean volume (Bld) [Entitic vol] 7.8 fL Normal 6.3-10.7 [facility] Comment on above: Performed By: #### C BC #### [address] Platelets [#/volume] in Bloo d by Automated countOrdered By: Vish Nazario on 04-12-2023 Platelets (Bld) [#/Vol] 185 10*3/uL Normal 150-450 [facility] Comment on above: Performed By: #### C BC #### [address] Potassium [Moles/volume] in Serum or PlasmaOrdered By: Vish Nazario on 04-12-2023 Potassium [Moles/Vol] 3.2 mmol/L Low 3.5-5.1 [facility] Comment on above: Performed By: #### B MP #### [address] Serum or plasma anion gap de terminationOrdered By: Vish Nazario on 04-12-2023 Anion gap [Moles/Vol] 9.8 mmol/L Normal 6.0-15.0 [facility] Comment on above: Performed By: #### B MP #### [address] Sodium [Moles/volume] in Ser um or PlasmaOrdered By: Vish Nazario on 04-12-2023 Sodium [Moles/Vol] 146 mmol/L High 136-145 [facility] Comment on above: Performed By: #### B MP #### [address] Urea nitrogen [Mass/volume] in Serum or PlasmaOrdered By: Vish Nazario on 04-12-2023 Urea nitrogen [Mass/Vol] 16 mg/dL Normal 7-25 [facility] Comment on above: Performed By: #### B MP #### [place] [address] [place] 36on 04-10-[address] Juarez's office called (vascular surgeon in [place]) and is requesting cardiac clearance on her. She is scheduled next week for carotid artery revascularization. Please advise. Thanks. Normal [facility] US carotid doppler BIon 03-15 US carotid doppler BI [facility] [place] [address] [place] [address] Ultrasound Report Signed Patient: Ozzie Gifford MR#: [id number] : 1950 Acct:[id number] Age/Sex: 72 / F ADM Date: 04/09/23 Loc: [facility] Room: Type: [facility] Attending Dr: Denver Juarez MD Ordering [...] Husam Pierce M.D.04/09/2023 10:42 AM Dictation Location: [place] [address] Tech: Judy Shilpi Transcribed By: SHYANN 04/09/23 1042 Dictated By: Husam Pierce MD 04/09/23 1040 Signed By: 04/09/23 1042 Normal [facility] Office Visiton 03-14-2023 Follow-up visit [id number] Ozzie Gifford 1950 F Date Provider Department Center 03/14/2023 MEGHANN NEGRETE [facility] Family History Problem Relation Age of Onset Hypertension Mother Hypertension Father Heart attack Brother Family Status - Relation Status Age at Mother Father Brother Level of Service:[address]13 [place] OFFICE/OUTPATIENT ESTABLISHED LOW MDM 20 MIN Normal [facility] Formson 03-08-2023 Forms [id number] .[id number] Normal [facility] Physician Referralon 024 Physician Referral [id number] 1.00TIFF Normal [facility] Ambulatory Visit Summaryon 0 03-07-2023 Ambulatory Visit [...] mg ER Tab) potassium chloride (Potassium Chloride (Sii-Lapy-Waf M10) 10 mEq oral tablet, extended release) [...] TAB) 0 Unchanged potassium chloride (Potassium Chloride (Tuk-Jgzh-Dfz M10) 10 mEq oral tablet, extended release) [...] you for choosing us for your care. [facility] Patient Educationon 03-07- 24 Patient Education [...] stimulation). ? For women, using a medical records administrator to prevent urine leaks. This is a [...] urine. ? (more content not included)... 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 Pt states she walked here from [place] in the rain. Genitourinary: Flank Pain: none. [...] 60 mg ER QD. Rx sent to [facility]. -f/u 6-8 weeks for med recheck and PVR. Ordered: trospium, 60 mg = 1 cap(s), Oral, qAM, X 90 day(s), # 90 cap(s), Refills(s) 0, Pharmacy: [id number], 160, cm, 03/07/23 10:58:00 EST, Height/Length Dosing, 60, kg, 03/07/23 10:58:00 EST, Weight Dosing 2. UTI (urinary tract infection) (N39.0: Urinary tract infection, site not specified) recently dx by PCP [facility] 02/23/23 - 100 k E. coli, treated w/ macrobid. However, pt did have short inpatient stay during course (UA negative at [facility]) and pt states she has a few [...] disease, unspecified (R90.82: White matter disease, unspecified) [facility] inpatient stay 03/01/23 - for head stuff per patient. CT brain w/o con 03/01/23 - stable atrophy and white matter disease Pt not able to answer questions directly in visit today. States she walked to [facility] [employer] office from [place]. Poor historian. Orders: [id number] Measure Post Void residual urine and/or bladder capacity by US- non-imaging Urnls Dip Stick Auto w/o Microscopy POC [id number] Follow-up With When Contact Information Orzech CÉASR, CARPENTER INSPECTOR-C, Carmen Rm, FAM, URL In 8 weeks [...] mg ER Tab, Oral, Daily Potassium Chloride (Ggz-Puhr-Qkj M10) 10 mEq oral tablet, extended release [...] Urine Di (more content not included)... Normal [facility] Comment on above: Result Comment: Elec tronically Signed By: MITRA Quintero APRN, Carmen Rm\.br\Date and Time Signed: 03/07/23 14:30 EST 36on 02-27-2023 36 PER PATRICIA CAN GO DE K TO 20 MG Normal [facility] 37on 02-13-2023 37 Decrease amount of fluids your drinking to about 1.5 liters/day Take lasix 40 mg daily and increase potassium to 20 meq daily Have labs drawn in 1 week Call for appointment with neuro Normal [facility] Office Visiton 02-13-2023 Follow-up visit [id number] Ozzie Gifford 1950 F Date Provider Department Center 02/13/2023 [facility] Family History Problem Relation Age of Onset Hypertension Mother Hypertension Father Heart attack Brother Family Status - Relation Status Age at Mother Father Brother Level of Service:86857 [place] OFFICE/OUTPATIENT ESTABLISHED MOD MDM 30 MIN Normal [facility] Urinalysis - AUTOMATEDon Appearance (U) cloudy [email or web address] Other Bilirubin Ql (U) Negative [employer] Other Color (U) yellow [employer] Other Glucose Ql (U) Negative [email or web address] Other Hemoglobin Ql (U) Negative [employer] Other Ketones Ql (U) Negative [email or web address] Other Leukocyte esterase Test strip Ql (U) Negative [employer] Other Nitrite Ql (U) Negative [email or web address] Other pH (U) 6.0 [pH] [employer] Other Protein Ql (U) Negative [email or web address] Other Specific gravity (U) [Rel density] 1.030 [employer] Other Urobilinogen (U) [Mass/Vol] 1.0 mg/dL [employer] Other Urinalysis - AUTOMATED No rt [employer] Other ECHOCARDIO M/2D COMPLETEon 0 02-21-2022 ECHOCARDIO M/2D COMPLETE Patient: BALTAOZZIE Exam Date: 02/21/2022 : 1950 Gender:F Ordering : MEGHANN FONSECA Admission #: [id number] Family : SHAIKH BeDeonte DAY . Order #: [id number] CLICK HERE TO VIEW EXAM ECHOCARDIOGRAM REPORT [...] : SHAIKH Korina DAY . Admission #: [id number] Family : Order #: [id number] CLICK HERE TO VIEW EXAM RADIOLOGY REPORT [...] her congestive heart disease up with her gis professor in the next 2 weeks. The [...] Natacha Walsh MD on 02/20/2022 at 11:35 [facility] VC VENOUS REFLUX IAN LMTon 0 02-20-2022 VC VENOUS REFLUX IAN LMT Patient: OZZIE GIFFORD Exam Date: 02/20/2022 : 1950 Gender:F Ordering : BeDeonte DAY . Admission #: [id number] Family : DR NATACHA WALSH M.D. 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 Mid/med [...] Walsh MD on 02/20/2022 at 10:30 Normal [facility] US JANETTE DOP LEG LTon 02-01-20 22 [...] INDRA LOZADA Date: 2022-01-31 18:39 Normal [facility] BNPon 01-22-2022 Natriuretic peptide B (Bld) [Mass/Vol] 552.0 pg/mL Normal <=900.0 [facility] Comment on above: Performed By: #### E RUR #### [facility] [address] [place] [address] Dr. Grzegorz Wang CBC AUTO DIFFon 01-22-2022 BASO # 0.1 103/ul Normal 0.0-0.1 [facility] Comment on above: Performed By: #### C BC #### [facility] [address] [place] [address] Dr. Grzegorz Wang Basophils/100 WBC (Bld) 0.9 % Normal 0.2-2.0 [facility] Comment on above: Performed By: #### C BC #### [facility] [address] [place] [address] Dr. Grzegorz Wang EO # 0.3 103/ul Normal 0.0-0.7 [facility] Comment on above: Performed By: #### C BC #### [facility] [address] [place] [address] Dr. Grzegorz Wang Eosinophils/100 WBC (Bld) 5.5 % Normal 0.9-7.0 [facility] Comment on above: Performed By: #### C BC #### [facility] [address] [place] [address] Dr. Grzegorz Wang Erythrocyte distribution width (RBC) [Ratio] 13.7 % Normal 11.0-15.0 [facility] Comment on above: Performed By: #### C BC #### [facility] [address] [place] [address] Dr. Grzegorz Wang Hematocrit (Bld) [Volume fraction] 41.1 % Normal 36.0-48.0 [facility] Comment on above: Performed By: #### C BC #### [facility] [address] [place] [address] Dr. Grzegorz Wang Hemoglobin (Bld) [Mass/Vol] 13.4 g/dL Normal 12.0-16.0 [facility] Comment on above: Performed By: #### C BC #### [facility] [address] [place] [address] Dr. Grzegorz Wang IG # 0.01 10e3/ul Normal 0.00-0.03 [facility] Comment on above: Performed By: #### C BC #### [facility] [address] [place] [address] Dr. Grzegorz Wang IG % 0.2 % Normal 0.0-0.5 [facility] Comment on above: Performed By: #### C BC #### [facility] [address] [place] [address] Dr. Grzegorz Wang LYMPH # 1.8 103/ul Normal 1.2-3.8 [facility] Comment on above: Performed By: #### C BC #### [facility] [address] [place] [address] Dr. Grzegorz Wang Lymphocytes/100 WBC (Bld) 29.9 % Normal 20.5-60.0 [facility] Comment on above: Performed By: #### C BC #### [facility] [address] [place] [address] Dr. Grzegorz Wang MANUAL DIFF REQ NO Normal [facility] Comment on above: Performed By: #### C BC #### [facility] [address] [place] [address] Dr. Grzegorz aWng MCH (RBC) [Entitic mass] 28.2 pg Normal 26.7-34.0 [facility] Comment on above: Performed By: #### C BC #### [facility] [address] [place] [address] Dr. Grzegorz Wang MCHC (RBC) [Mass/Vol] 32.6 g/dL Normal 29.9-35.2 [facility] Comment on above: Performed By: #### C BC #### [facility] [address] [place] [address] Dr. Grzegorz Wang MCV (RBC) [Entitic vol] 86.5 fL Normal 81.0-99.0 [facility] Comment on above: Performed By: #### C BC #### [facility] [address] [place] [address] Dr. Grzegorz Wang MONO # 0.7 103/ul Normal 0.3-0.8 [facility] Comment on above: Performed By: #### C BC #### [facility] [address] [place] [address] Dr. Grzegorz Wang Monocytes/100 WBC (Bld) 11.1 % Normal 1.7-12.0 [facility] Comment on above: Performed By: #### C BC #### [facility] [address] [place] [address] Dr. Grzegorz Wang NEUT # 3.1 103/ul Normal 1.4-6.5 [facility] Comment on above: Performed By: #### C BC #### [facility] [address] [place] [address] Dr. Grzegorz Wang Neutrophils/100 WBC (Bld) 52.4 % Normal 43.0-75.0 [facility] Comment on above: Performed By: #### C BC #### [facility] [address] [place] [address] Dr. Grzegorz Wang Platelet mean volume (Bld) [Entitic vol] 9.6 fL Normal 9.5-13.5 [facility] Comment on above: Performed By: #### C BC #### [facility] [address] [place] [address] Dr. Grzegorz Wang PLT 162 103/ul Normal 150-450 [facility] Comment on above: Performed By: #### C BC #### [facility] [address] [place] [address] Dr. Grzegorz Wang RBC 4.75 106/ul Normal 4.20-5.40 [facility] Comment on above: Performed By: #### C BC #### [facility] [address] [place] [address] Dr. Grzegorz Wang WBC 5.9 103/ul Normal 4.0-11.0 [facility] Comment on above: Performed By: #### C BC #### [facility] [address] [place] [address] Dr. Grzegorz Wang PROF 14(COMP METB)on 022 Albumin [Mass/Vol] 3.4 g/dL Normal 3.4-5.0 [facility] Comment on above: Performed By: #### E RUR #### [facility] [address] [place] [address] Dr. Grzegorz Wang Albumin/Globulin [Mass ratio] 1.0 {ratio} Normal [facility] Comment on above: Performed By: #### E RUR #### [facility] [address] [place] [address] Dr. Grzegorz Wang ALP [Catalytic activity/Vol] 102 U/L Normal 46-116 [facility] Comment on above: Performed By: #### E RUR #### [facility] [address] [address] [address] Grzegorz Wang ALT [Catalytic activity/Vol] 16 U/L Normal 14-59 [facility] Comment on above: Performed By: #### E RUR #### [facility] [address] [address] [address] Grzegorz Wang Anion gap [Moles/Vol] 10.6 mmol/L Normal [facility] Comment on above: Performed By: #### E RUR #### [facility] [address] [address] [address] Grzegorz Wang AST [Catalytic activity/Vol] 18 U/L Normal 15-37 [facility] Comment on above: Performed By: #### E RUR #### [facility] [address] [place] [address] Dr. Grzegorz Wang Bilirubin [Mass/Vol] 0.4 mg/dL Normal 0.2-1.0 [facility] Comment on above: Performed By: #### E RUR #### [facility] [address] [address] [address] Grzegorz Wang Calcium [Mass/Vol] 9.0 mg/dL Normal 8.5-10.1 [facility] Comment on above: Performed By: #### E RUR #### [facility] [address] [address] [address] Grzegorz Wang Chloride [Moles/Vol] 103 mmol/L Normal 98-107 [facility] Comment on above: Performed By: #### E RUR #### [facility] [address] [address] [address] Grzegorz Wang CO2 [Moles/Vol] 31.4 mmol/L Normal 21.0-32.0 [facility] Comment on above: Performed By: #### E RUR #### [facility] [address] [address] [address] Grzegorz Wang Creatinine [Mass/Vol] 0.80 mg/dL Normal 0.55-1.02 [facility] Comment on above: Performed By: #### E RUR #### [facility] [address] [address] [address] Grzegorz Wang EGFR-AF CAMBODIAN >60 Normal >=60 [facility] Comment on above: Performed By: #### E RUR #### [facility] [address] [address] [address] Grzegorz Wang EGFR-NON AF CAMBODIAN >60 Normal >=60 [facility] Comment on above: Performed By: #### E RUR #### [facility] [address] [address] [address] Grzegorz Wang Globulin (S) [Mass/Vol] 3.4 g/dL Normal [facility] Comment on above: Performed By: #### E RUR #### [facility] [address] [place] [address] Dr. Grzegorz Wang Glucose [Mass/Vol] 78 mg/dL Normal 74-106 [facility] Comment on above: Performed By: #### E RUR #### [facility] [address] [place] [address] Dr. Grzegorz Wang Potassium [Moles/Vol] 3.0 mmol/L Critically low 3.5-5.1 [facility] Comment on above: Performed By: #### E RUR #### [facility] [address] [place] [address] Dr. Grzegorz Wang Protein [Mass/Vol] 6.8 g/dL Normal 6.4-8.2 [facility] Comment on above: Performed By: #### E RUR #### [facility] [address] [address] [address] Grzegorz Wang Sodium [Moles/Vol] 142 mmol/L Normal 136-145 [facility] Comment on above: Performed By: #### E RUR #### [facility] [address] [address] [address] Grzegorz Wang Urea nitrogen [Mass/Vol] 14.0 mg/dL Normal 7.0-18.0 [facility] Comment on above: Performed By: #### E RUR #### [facility] [address] [address] [address] Grzegorz Wang Urea nitrogen/Creatinine [Mass ratio] 17.5 mg/mg Normal [facility] Comment on above: Performed By: #### E RUR #### [facility] [address] [address] [address] Grzegorz Wang US JANETTE DOP LEG [...] 01-18-2022 CHOL-HDL RATIO NORM SEE BELOW Normal [facility] Comment on above: Result Comment: 3.3 - 4.4 LOW RISK 4.4 - 7.1 AVERAGE RISK 7.1 - 11.0 MODERATE RISK >11.0 HIGH RISK Performed By: #### A PHIL OWEN #### [facility] [address] [address] [address] Grzegorz Wang Cholesterol [Mass/Vol] 125 mg/dL Normal <=200 [facility] Comment on above: Performed By: #### A BRAYDEN LIPA #### [facility] [address] [address] [address] Grzegorz Wang Cholesterol in HDL [Mass/Vol] 69 mg/dL Critically high 40-60 [facility] Comment on above: Performed By: #### A BRAYDEN LIPA #### [facility] [address] [address] [address] Grzegorz Wang Cholesterol in LDL [Mass/Vol] 40.0 mg/dL Normal [facility] Comment on above: Performed By: #### A BRAYDEN LIPA #### [facility] [address] [address] [address] Grzegorz Wang Cholesterol.total/Claudia sterol in HDL [Mass ratio] 1.8 {ratio} Normal [facility] Comment on above: Performed By: #### A BRAYDEN LIPA #### [facility] [address] [address] [address] Grzegorz Wang HDL NORMAL > or = 60 mg/dl - LO W CARDIOVASCULAR RISK <40 mg/dl - HIGH CARDIOVASCULAR RISK Normal [facility] Comment on above: Performed By: #### A BRAYDEN LIPA #### [facility] [address] [address] [address] Grzegorz Wang LDL CALC NORMAL SEE BELOW Normal [facility] Comment on above: Result Comment: <100 mg/dl OPTIMAL 100 - 129 mg/dl NEAR OR ABOVE OPTIMAL 130 - 159 mg/dl BORDERLINE HIGH 160 - 189 mg/dl HIGH >190 mg/dl VERY HIGH Performed By: #### A BRAYDEN LIPA #### [facility] [address] [address] [address] Grzegorz Wang Triglyceride [Mass/Vol] 80 mg/dL Normal <=150 [facility] Comment on above: Performed By: #### A BRAYDEN LIPA #### [facility] [address] [address] [address] Grzegorz Wang VLDL CALC 16.0 mg/dL Normal [facility] Comment on above: Performed By: #### A BRAYDEN LIPA #### [facility] [address] [address] [address] Grzegorz Wang US PELVISon 01-18-2022 US [...] MITZI CHAU Date: 2022-01-18 10:31 Normal [facility] XR CHEST 2 Von 01-03-2022 XR [...] by: MITZI CHAU Date: 2021-12-07 17:20 Normal [facility] PROF CHEM 8 (BAS METB)on Anion gap [Moles/Vol] 13.0 mmol/L Normal [facility] Comment on above: Performed By: #### A MY, LIPA #### [facility] [address] [place] [address] Dr. Grzegorz Wang Calcium [Mass/Vol] 8.9 mg/dL Normal 8.5-10.1 [facility] Comment on above: Performed By: #### A BRAYDEN LIPA #### [facility] [address] [address] [address] Grzegorz Wang Chloride [Moles/Vol] 105 mmol/L Normal 98-107 [facility] Comment on above: Performed By: #### A MY LIPA #### [facility] [address] [address] [address] Grzegorz Wang CO2 [Moles/Vol] 29.0 mmol/L Normal 21.0-32.0 [facility] Comment on above: Performed By: #### A BRAYDEN LIPA #### [facility] [address] [place] [address] Dr. Grzegorz Wagn Creatinine [Mass/Vol] 0.79 mg/dL Normal 0.55-1.02 [facility] Comment on above: Performed By: #### A BRAYDEN LIPA #### [facility] [address] [place] [address] Dr. Grzegorz Wang EGFR-AF CAMBODIAN >60 Normal >=60 [facility] Comment on above: Performed By: #### A BRAYDEN LIPA #### [facility] [address] [place] [address] Dr. Grzegorz Wang EGFR-NON AF CAMBODIAN >60 Normal >=60 [facility] Comment on above: Performed By: #### A BRAYDEN LIPA #### [facility] [address] [place] [address] Dr. Grzegorz Wang Glucose [Mass/Vol] 79 mg/dL Normal 74-106 [facility] Comment on above: Performed By: #### A BRAYDEN, LIPA #### [facility] [address] [place] [address] Dr. Grzegorz Wang Potassium [Moles/Vol] 3.0 mmol/L Critically low 3.5-5.1 [facility] Comment on above: Performed By: #### A MY, LIPA #### [facility] [address] [place] [address] Dr. Grzegorz Wang Sodium [Moles/Vol] 144 mmol/L Normal 136-145 [facility] Comment on above: Performed By: #### A BRAYDEN LIPLuna #### [facility] [address] [place] [address] Dr. Grzegorz Wang Urea nitrogen [Mass/Vol] 12.0 mg/dL Normal 7.0-18.0 [facility] Comment on above: Performed By: #### A BRAYDEN LIPA #### [facility] [address] [place] [address] Dr. Grzegorz Wang Urea nitrogen/Creatinine [Mass ratio] 15.2 mg/mg Normal [facility] Comment on above: Performed By: #### A BRAYDEN LIPA #### [facility] [address] [place] [address] Dr. Grzegorz Wang VITAMIN B12on 11-27-2021 Cobalamin (Vitamin B12) [Mass/Vol] 5661.0 pg/mL Critically high 193.0-986.0 [facility] Comment on above: Performed By: #### E RUR #### [facility] [address] [place] [address] Dr. Grzegorz Wang BNPon 11-26-2021 Natriuretic peptide B (Bld) [Mass/Vol] 1245.0 pg/mL Critically high <=900.0 [facility] Comment on above: Performed By: #### A BRAYDEN LIPA #### [facility] [address] [place] [address] Dr. Grzegorz Wang Bacterial blood cultureOrder ed By: Ashleigh Rashid on 11-26-2021 Bacteria identified Cx Nom (Bld) NO GROWTH 5 DAYS [facility] CARDIAC BAMBI ADMITon 022 CK [Catalytic activity/Vol] 75 U/L Normal 26-192 [facility] Comment on above: Performed By: #### A BRAYDEN LIPA #### [facility] [address] [place] [address] Dr. Grzegorz Wang CK.MB [Mass/Vol] 1.58 ng/mL Normal <=3.60 [facility] Comment on above: Performed By: #### A BRAYDEN LIPA #### [facility] [address] [address] [address] Grzegorz Wang HSTROP 13.3 pg/mL Normal 4.0-51.3 [facility] Comment on above: Result Comment: CUT- OFF POINTS HAVE BEEN ESTABLISHED BASED ON THE FOURTH UNIVERSAL DEFINITIONS OF MYOCARDIAL INFARCTION. THE UPPER REFERENCE LIMIT (URL) OF TROPONIN, DEFINED THE 99TH PERCENTILE OF cTnI DISTRIBUTION IN A REFERENCE POPULATION, HAS BEEN CONFIRMED THE DECISION THRESHOLD FOR [place] DIAGNOSIS. Performed By: #### A BRAYDEN LIPA #### [facility] [address] [place] [address] Dr. Grzegorz Wang MITZI 85 ng/mL Critically high 9-82 [facility] Comment on above: Performed By: #### A LUCHO OWENA #### [facility] [address] [place] [address] Dr. Grzegorz Wang CBC AUTO DIFFon 11-26-2021 BASO # 0.0 103/ul Normal 0.0-0.1 [facility] Comment on above: Performed By: #### A BRAYDEN LIPA #### [facility] [address] [place] [address] Dr. Grzegorz Wang Basophils/100 WBC (Bld) 0.5 % Normal 0.2-2.0 [facility] Comment on above: Performed By: #### A BRAYDEN LIPA #### [facility] [address] [place] [address] Dr. Grzegorz Wang EO # 0.1 103/ul Normal 0.0-0.7 [facility] Comment on above: Performed By: #### A BRAYDEN LIPA #### [facility] [address] [place] [address] Dr. Grzegorz Wang Eosinophils/100 WBC (Bld) 1.3 % Normal 0.9-7.0 [facility] Comment on above: Performed By: #### A BRAYDEN LIPA #### [facility] [address] [place] [address] Dr. Grzegorz Wang Erythrocyte distribution width (RBC) [Ratio] 16.8 % Critically high 11.0-15.0 [facility] Comment on above: Performed By: #### A BRAYDEN LIPA #### [facility] [address] [place] [address] Dr. Grzegorz Wang Hematocrit (Bld) [Volume fraction] 36.6 % Normal 36.0-48.0 [facility] Comment on above: Performed By: #### A MY, LIPA #### [facility] [address] [place] [address] Dr. Grzegorz Wang Hemoglobin (Bld) [Mass/Vol] 12.1 g/dL Normal 12.0-16.0 [facility] Comment on above: Performed By: #### A MY, LIPA #### [facility] [address] [place] [address] Dr. Grzegorz Wang IG # 0.03 10e3/ul Normal 0.00-0.03 [facility] Comment on above: Performed By: #### A BRAYDEN, LIPA #### [facility] [address] [place] [address] Dr. Grzegorz Wang IG % 0.5 % Normal 0.0-0.5 [facility] Comment on above: Performed By: #### A BRAYDEN, LIPA #### [facility] [address] [place] [address] Dr. Grzegorz Wang LYMPH # 0.9 103/ul Critically low 1.2-3.8 [facility] Comment on above: Performed By: #### A BRAYDEN, LIPA #### [facility] [address] [place] [address] Dr. Grzegorz Wang Lymphocytes/100 WBC (Bld) 15.4 % Critically low 20.5-60.0 [facility] Comment on above: Performed By: #### A BRAYDEN, LIPA #### [facility] [address] [place] [address] Dr. Grzegorz Wang MANUAL DIFF REQ NO Normal [facility] Comment on above: Performed By: #### A BRAYDEN, LIPA #### [facility] [address] [place] [address] Dr. Grzegorz Wang MCH (RBC) [Entitic mass] 27.7 pg Normal 26.7-34.0 [facility] Comment on above: Performed By: #### A MY LIPA #### [facility] [address] [place] [address] Dr. Grzegorz Wang MCHC (RBC) [Mass/Vol] 33.1 g/dL Normal 29.9-35.2 [facility] Comment on above: Performed By: #### A MY, LIPA #### [facility] [address] [place] [address] Dr. Grzegorz Wang MCV (RBC) [Entitic vol] 83.8 fL Normal 81.0-99.0 [facility] Comment on above: Performed By: #### A BRAYDEN LIPA #### [facility] [address] [place] [address] Dr. Grzegorz Wang MONO # 0.5 103/ul Normal 0.3-0.8 [facility] Comment on above: Performed By: #### A BRAYDEN LIPA #### [facility] [address] [place] [address] Dr. Grzegorz Wang Monocytes/100 WBC (Bld) 7.8 % Normal 1.7-12.0 [facility] Comment on above: Performed By: #### A BRAYDEN LIPA #### [facility] [address] [place] [address] Dr. Grzegorz Wang NEUT # 4.5 103/ul Normal 1.4-6.5 [facility] Comment on above: Performed By: #### A BRAYDEN LIPA #### [facility] [address] [place] [address] Dr. Grzegorz Wang Neutrophils/100 WBC (Bld) 74.5 % Normal 43.0-75.0 [facility] Comment on above: Performed By: #### A BRAYDEN LIPA #### [facility] [address] [place] [address] Dr. Grzegorz Wang Platelet mean volume (Bld) [Entitic vol] 11.2 fL Normal 9.5-13.5 [facility] Comment on above: Performed By: #### A BRAYDEN LIPA #### [facility] [address] [place] [address] Dr. Grzegorz Wang PLT 187 103/ul Normal 150-450 [facility] Comment on above: Performed By: #### A LUCHO OWENA #### [facility] [address] [address] [address] Grzegorz Wang RBC 4.37 106/ul Normal 4.20-5.40 [facility] Comment on above: Performed By: #### A LUCHO OWENA #### [facility] [address] [address] [address] Grzegorz Wang WBC 6.0 103/ul Normal 4.0-11.0 [facility] Comment on above: Performed By: #### A LUCHO WOENA #### [facility] [address] [address] ABD/PELVIS WO CONon [...] SHANIA WASHINGTON Date: 2021-11-26 14:44 Normal [facility] ER URINE PROFILEon 2 Bilirubin Ql (U) Negative Normal NEGATIVE [facility] Comment on above: Performed By: #### C BC #### [facility] [address] [place] [address] Dr. Grzegorz Wang Clarity (U) CLEAR Normal CLEAR [facility] Comment on above: Performed By: #### C BC #### [facility] [address] [place] [address] Dr. Grzegorz Wang Color (U) LT. YELLOW Normal YELLOW [facility] Comment on above: Performed By: #### C BC #### [facility] [address] [place] [address] Dr. Grzegorz Wang ERUAHAudra A micrscopic examination will be performed if indicated. Normal [facility] Comment on above: Performed By: #### C BC #### [facility] [address] [place] [address] Dr. Grzegorz Wang Glucose Ql (U) Negative Normal NEGATIVE [facility] Comment on above: Performed By: #### C BC #### [facility] [address] [place] [address] Dr. Grzegorz Wang Hemoglobin Ql (U) TRACE-INTACT Abnormal NEGATIVE [facility] Comment on above: Performed By: #### C BC #### [facility] [address] [place] [address] Dr. Grzegorz Wang Ketones Ql (U) Negative Normal NEGATIVE [facility] Comment on above: Performed By: #### C BC #### [facility] [address] [place] [address] Dr. Grzegorz Wang LEUKOCYTES Negative Normal NEGATIVE [facility] Comment on above: Performed By: #### C BC #### [facility] [address] [place] [address] Dr. Grzegorz Wang Nitrite Ql (U) Negative Normal NEGATIVE [facility] Comment on above: Performed By: #### C BC #### [facility] [address] [place] [address] Dr. Grzegorz Wang pH (U) 5.5 [pH] Normal 5-9 [facility] Comment on above: Performed By: #### C BC #### [facility] [address] [place] [address] Dr. Grzegorz Wang SPEC GRAVITY <=1.005 Abnormal 1.005-<=1.0 25 [facility] Comment on above: Performed By: #### C BC #### [facility] [address] [place] [address] Dr. Grzegorz Wang UA PROTEIN Negative Normal NEGATIVE/ TRACE [facility] Comment on above: Performed By: #### C BC #### [facility] [address] [place] [address] Dr. Grzegorz Wang UR MICRO IND INDICATED Normal [facility] Comment on above: Performed By: #### C BC #### [facility] [address] [place] [address] Dr. Grzegorz Wang Urobilinogen Qn (U) 0.2 {Lidya'U}/dL Normal 0.2 - 1. 0 [facility] Comment on above: Performed By: #### C BC #### [facility] [address] [place] [address] Dr. Grzegorz Wang PROF 14(COMP METB)on 022 Albumin [Mass/Vol] 3.5 g/dL Normal 3.4-5.0 [facility] Comment on above: Performed By: #### A BRAYDEN LIPLuna #### [facility] [address] [place] [address] Dr. Grzegorz Wang Albumin/Globulin [Mass ratio] 1.1 {ratio} Normal [facility] Comment on above: Performed By: #### A PHIL OWEN #### [facility] [address] [place] [address] Dr. Grzegorz Wang ALP [Catalytic activity/Vol] 89 U/L Normal 46-116 [facility] Comment on above: Performed By: #### A MY, LIPA #### [facility] [address] [address] [address] Grzegorz Wang ALT [Catalytic activity/Vol] 22 U/L Normal 14-59 [facility] Comment on above: Performed By: #### A MY, LIPA #### [facility] [address] [address] [address] Grzegorz Wang Anion gap [Moles/Vol] 10.2 mmol/L Normal [facility] Comment on above: Performed By: #### A MY, LIPA #### [facility] [address] [address] [address] Grzegorz Wang AST [Catalytic activity/Vol] 18 U/L Normal 15-37 [facility] Comment on above: Performed By: #### A BRAYDEN, LIPA #### [facility] [address] [place] [address] Dr. Grzegorz Wang Bilirubin [Mass/Vol] 0.6 mg/dL Normal 0.2-1.0 [facility] Comment on above: Performed By: #### A BRAYDEN, LIPA #### [facility] [address] [address] [address] Grzegorz Wang Calcium [Mass/Vol] 9.1 mg/dL Normal 8.5-10.1 [facility] Comment on above: Performed By: #### A MY, LIPA #### [facility] [address] [place] [address] Dr. Grzegorz Wang Chloride [Moles/Vol] 106 mmol/L Normal 98-107 [facility] Comment on above: Performed By: #### A MY, LIPA #### [facility] [address] [address] [address] Grzegorz Wang CO2 [Moles/Vol] 29.5 mmol/L Normal 21.0-32.0 [facility] Comment on above: Performed By: #### A MY, LIPA #### [facility] [address] [address] [address] Grzegorz Wang Creatinine [Mass/Vol] 0.86 mg/dL Normal 0.55-1.02 [facility] Comment on above: Performed By: #### A MY, LIPA #### [facility] [address] [address] [address] Grzegorz Wang EGFR-AF CAMBODIAN >60 Normal >=60 [facility] Comment on above: Performed By: #### A MY, LIPA #### [facility] [address] [address] [address] Grzegorz Wang EGFR-NON AF CAMBODIAN >60 Normal >=60 [facility] Comment on above: Performed By: #### A MY, LIPA #### [facility] [address] [address] [address] Grzegorz Wang Globulin (S) [Mass/Vol] 3.1 g/dL Normal [facility] Comment on above: Performed By: #### A MY, LIPA #### [facility] [address] [place] [address] Dr. Grzegorz Wang Glucose [Mass/Vol] 98 mg/dL Normal 74-106 [facility] Comment on above: Performed By: #### A BRAYDEN, LIPA #### [facility] [address] [address] [address] Grzegorz Wang Potassium [Moles/Vol] 2.7 mmol/L Critically low 3.5-5.1 [facility] Comment on above: Performed By: #### A BRAYDEN, LIPA #### [facility] [address] [place] [address] Dr. Grzegorz Wang Protein [Mass/Vol] 6.6 g/dL Normal 6.4-8.2 [facility] Comment on above: Performed By: #### A MY, LIPA #### [facility] [address] [address] [address] Grzegorz Wang Sodium [Moles/Vol] 143 mmol/L Normal 136-145 [facility] Comment on above: Performed By: #### A MY, LIPA #### [facility] [address] [address] [address] Grzegorz Wang Urea nitrogen [Mass/Vol] 12.0 mg/dL Normal 7.0-18.0 [facility] Comment on above: Performed By: #### A PHIL OWEN #### [facility] [address] [place] [address] Dr. Grzegorz Wang Urea nitrogen/Creatinine [Mass ratio] 14.0 mg/mg Normal [facility] Comment on above: Performed By: #### A PHIL OWEN #### [facility] [address] [place] [address] Dr. Grzegorz Wang PROTIMEon 11-26-2021 INR Coag (PPP) [Relative time] 1.00 {INR} Normal [facility] Comment on above: Performed By: #### C BC #### [facility] [address] [place] [address] Dr. Grzegorz Wang INR GUIDELINES SEE BELOW Normal [facility] Comment on above: Result Comment: DENTON RED INR: 2.0 - 3.0 CONDITIONS NOT LISTED BELOW 2.5 - 3.5 FOR PROSTHETIC HEART VALVE REPLACEMENT 2.5 - 3.5 RECURRENT THROMBOSIS Performed By: #### C BC #### [facility] [address] [place] [address] Dr. Grzegorz Wang PT Coag (PPP) [Time] 10.8 s Normal 9.0-11.6 [facility] Comment on above: Performed By: #### C BC #### [facility] [address] [place] [address] Dr. Grzeogrz Wang PTTon 11-26-2021 aPTT Coag (Bld) [Time] 23.1 s Normal 22.3-36.2 [facility] Comment on above: Performed By: #### C BC #### [facility] [address] [place] [address] Dr. Grzegorz Wang URINE MICROSCOPIC ONLYon BACTERIA NONE SEEN Normal NONE SEEN [facility] Comment on above: Performed By: #### C BC #### [facility] [address] [place] [address] Dr. Grzegorz Wang Bacteria identified Cx Nom (U) NOT INDICATED Normal [facility] Comment on above: Performed By: #### C BC #### [facility] [address] [place] [address] Dr. Grzegorz Wang CAST NONE SEEN Normal NONE SEEN [facility] Comment on above: Performed By: #### C BC #### [facility] [address] [place] [address] Dr. Grzegorz Wang Crystals LM Nom (Urine sed) NONE SEEN Normal NONE SEEN [facility] Comment on above: Performed By: #### C BC #### [facility] [address] [place] [address] Dr. Grzegorz Wang Epithelial cells LM Ql (Urine sed) FEW Abnormal NONE SEEN /RARE [facility] Comment on above: Performed By: #### C BC #### [facility] [address] [place] [address] Dr. Grzegorz Wang MUCOUS NONE SEEN Normal NONE SEEN [facility] Comment on above: Performed By: #### C BC #### [facility] [address] [place] [address] Dr. Grzegorz Wang RBC 0-2 Normal 0-2 [facility] Comment on above: Performed By: #### C BC #### [facility] [address] [place] [address] Dr. Grzegorz Wang WBC 0-2 Abnormal NONE SEEN [facility] Comment on above: Performed By: #### C BC #### [facility] [address] [place] [address] Dr. Grzegorz Wang XR CHEST 1 Von [...] NATACHA CERNA Date: 2021-11-26 14:21 Normal [facility] CT BRAIN HEAD WO CONTRASTon 11-24-2021 [...] AGUILAR MD Signed Out: 11/24/21 14:21:18 Normal [facility] ED Adult Data - Texton [...] PNED ; Probability: 0 ; Diagnosis Code: [id number] Fall Date: 11/24/2021 ; Diagnosis Type: Reason For Visit ; Confirmation: Confirmed ; Clinical Dx: Fall ; Classification: Medical ; Clinical Service: Emergency medicine ; Code: PNED ; Probability: 0 ; Diagnosis Code: [id number] Procedure History ED Devices Present on Arrival [...] risk situation (congregated living, hemodialysis, infusion clinic, mcc, assisted living, fpc, homeless fdc, etc.)? : No Jennifer Mccarthy RN - 11/24/2021 15:25 EDT Normal [facility] ED Discharge Educationon ED Discharge Education Dermatology Cuts Closed With Kemi: Care Instructions Your Care Instructions A cut can happen anywhere on your body. The doctor used kemi to close the cut. [place] easily and quickly close a cut, which [...] your doctor if you can take an wgap-yho-mbciouz medicine. When should you call for help? [...] Where can you learn more? Go to [email or web address]/patientEd Enter E585 in the search box to learn more about Cuts Closed With Kemi: Care Instructions. Current as of: April 08, 2019 Content Version: 12.7 ? [employer]. Care instructions adapted under license by your healthcare professional. If you have questions about a medical condition or this instruction, always ask your healthcare professional. [employer] disclaims any warranty or liability for your [...] she will (more content not included)... Normal [facility] ED Emergency Severity Index Adult-Texton [...] Mccarthy RN - 11/24/2021 12:33 EDT Normal [facility] ED Nrsing Adlt Triage Sep [...] Mccarthy RN - 11/24/2021 13:00 EDT Normal [facility] ED Patient Summaryon 022 ED Patient Summary [facility] Emergency Department Discharge Instructions [address] [place] [address] \.br\(Patient Copy)\.br\ \.br\Name: OZZIE GIFFORD : 1950 \.br\Allergies: penicillin\.br\Diagno sis: Accidental fall; CHI (closed head injury); Contusion of rib on right side; Laceration of scalp\.br\ \.br\ Visit Date: 11/24/2021 12:30:03 \.br\ Current Date Time: 11/24/2021 17:30:08 \.br\Address: [address] [place] [address] \.br\ \.br\ \.br\Primary Care Provider: \.br\Name: NO FAMILY PHYSICIAN, 837\.br\Phone: \.br\ \.br\Emergency Department Care Providers: \.br\ Primary Physician: LUIS MCKEON MD \.br\ \.br\ \.br\.br\Thank you for choosing [facility] for your emergency care. You are very important to us. Our goal is to demonstrate our high quality medical care, and provide you with a very good patient experience.\.br\.br\ You may receive a survey about our service. Please take the time to complete the survey and return it so we can continue to enhance our service.\.br\.br\Maxx nk you again for allowing the [facility] Emergency Department to care for your medical needs. If you have questions about your care or follow up information please contact us at [phone].\.br\.b r\ Follow-Up Instructions\.br\____ _\.br\OZZIE GIFFORD has been given these follow-up instructions:\.br\.b r\.br\With: Address: When: \.br\ONELIA [facility], Family Practice [address], [address] [place] [address]\.br\ Business (1) Within 7 to 10 days \.br\.br\.br\With: Address: When: \.br\[address] NO FAMILY PHYSICIAN Within 3 to 5 days \.br\.br\.br\.br\ .br\Patient Education Materials\.br\ \. br\OZZIE GIFFORD has been given the following patient education materials:\.br\.br\C uts Closed With [place]: Care Instructions\.br\Your Care Instructions\.br\A cut can happen [...] your doctor if you can take an eqny-gpr-qdwybjx medicine.\.br\When should you call for help?\.br\ Call [...] get b (more content not included)... Normal [facility] ED Physician Reporton 2021 ED [...] The location where the incident occurred was [facility]. Location: Posterior head. The character of symptoms is pain. Therapy today: see nurses notes. Associated symptoms: denies loss of consciousness. This is a 71 y/o female presenting to the ED via EMS for evaluation of a mechanical fall. The patient states she was at the [facility] [employer] and she was going down steps and [...] WO CONTRAST (more content not included)... Normal [facility] ED Pre-Arrival Formon 2021 ED Pre-Arrival Form Pre-Arrival Summary Name: KARTIK, Current Date: 11/24/2021 12:31:19 EDT Gender: Date of : Age: Pre-Arrival Type: EMS ETA: 11/24/2021 12:53:00 EDT Primary Care Physician: Presenting Problem: Pre-Arrival User: Kailyn Jacobs RN Referring Source: Location: 1 [facility] Emergency Department [address] [place] [address] Notes: Vital Signs: Doctor Call Back: DNR Status: Miscellaneous Issues: Normal [facility] ED Progress Noteon ED Progress [...] understanding, pt ambulatory with steady gait Normal [facility] ED Triage Adult-Texton 11-24 ED [...] PNED ; Probability: 0 ; Diagnosis Code: [id number] (As Of: 11/24/2021 13:00:25 EDT) Vitals/Ht/Wt Temperature [...] Mccarthy RN - 11/24/2021 12:59 EDT Normal [facility] Urine culture routineOrdered By: Rafiq Bahena on 11-23-2021 Bacteria identified Cx Nom (U) Escherichia coli [facility] Albumin [Mass/volume] in Ser um or PlasmaOrdered By: Ashleigh Rashid on 11-22-2021 Albumin [Mass/Vol] 3.0 g/dL 3.2-5.5 [facility] Basophils Auto (Bld) [#/Vol] Ordered By: Ashleigh Rashid on 11-22-2021 Basophils (Bld) [#/Vol] 0.0 10*3/uL 0.0-0.2 [facility] Basophils/100 WBC Auto (Bld) Ordered By: Ashleigh Rashid on 11-22-2021 Basophils/100 WBC (Bld) 0.6 % . [facility] Creatinine and Glomerular fi ltration rate.predicted panel (S/P/Bld)Ordered By: Ashleigh Rashid on 11-22-2021 Creatinine [Mass/Vol] 1.10 mg/dL 0.44-1.03 [facility] Comment on above: Delta: 2.08 on 11/21 Eosinophils Auto (Bld) [#/Vo l]Ordered By: Ashleigh Rashid on 11-22-2021 Eosinophils (Bld) [#/Vol] 0.2 10*3/uL 0.0-0.45 [facility] Eosinophils/100 WBC Auto (Bl d)Ordered By: Ashleigh Rashid on 11-22-2021 Eosinophils/100 WBC (Bld) 4.4 % . [facility] Erythrocyte distribution wid th Auto (RBC) [Ratio]Ordered By: Ashleigh Rashid on 11-22-2021 Erythrocyte distribution width (RBC) [Ratio] 20.7 % 11.9-15.3 [facility] Estimated glomerular filtrat ion rate (GFR) non- AmericanOrdered By: Ashleigh Rashid on 11-22-2021 GFR/1.73 sq M.predicted among non-blacks MDRD (S/P/Bld) [Vol rate/Area] 49 mL/Min [facility] Globulin Calc (S) [Mass/Vol] Ordered By: Ashleigh Rashid on 11-22-2021 Globulin (S) [Mass/Vol] 2.4 g/dL [facility] Hematocrit Auto (Bld) [Volum e fraction]Ordered By: Ashleigh Rashid on 11-22-2021 Hematocrit (Bld) [Volume fraction] 36.9 % 34.0-46.4 [facility] Hemoglobin [Mass/volume] in BloodOrdered By: Ashleigh Rashid on 11-22-2021 Hemoglobin (Bld) [Mass/Vol] 12.1 g/dL 11.8-15.4 [facility] - Chemistry and C hemistry - challengeOrdered By: Ashleigh Rashid on 11-22-2021 Magnesium [Mass/Vol] 2.1 mg/dL 1.6-2.6 [facility] - Hematology and Cell countsOrdered By: Ashleigh Rashid on 11-22-2021 Nucleated RBC/100 WBC (Bld) [Ratio] 0.1 % 0-0.5 [facility] Leukocytes [#/volume] in Blo od by Automated countOrdered By: Ashleigh Rashid on 11-22-2021 WBC (Bld) [#/Vol] 4.7 10*3/uL 4.5-11.0 [facility] Lymphocytes Auto (Bld) [#/Vo l]Ordered By: Ashleigh Rashid on 11-22-2021 Lymphocytes (Bld) [#/Vol] 1.2 10*3/uL 1.00-4.8 [facility] Lymphocytes/100 WBC Auto (Bl d)Ordered By: Ashleigh Rashid on 11-22-2021 Lymphocytes/100 WBC (Bld) 26.0 % . [facility] MCH Auto (RBC) [Entitic mass ]Ordered By: Ashleigh Rashid on 11-22-2021 MCH (RBC) [Entitic mass] 27.2 pg 24.7-34.3 [facility] MCHC Auto (RBC) [Mass/Vol]Or dered By: Ashleigh Rashid on 11-22-2021 MCHC (RBC) [Mass/Vol] 32.6 g/dL 32.0-35.0 [facility] MCV Auto (RBC) [Entitic vol] Ordered By: Ashleigh Rashid on 11-22-2021 MCV (RBC) [Entitic vol] 83.5 fL 80-100 [facility] Monocytes Auto (Bld) [#/Vol] Ordered By: Ashleigh Rashid on 11-22-2021 Monocytes (Bld) [#/Vol] 0.4 10*3/uL 0.0-0.8 [facility] Monocytes/100 WBC Auto (Bld) Ordered By: Ashleigh Rashid on 11-22-2021 Monocytes/100 WBC (Bld) 8.4 % . [facility] Neutrophils Auto (Bld) [#/Vo l]Ordered By: Ashleigh Rashid on 11-22-2021 Neutrophils (Bld) [#/Vol] 2.8 10*3/uL 1.8-7.7 [facility] Neutrophils/100 WBC Auto (Bl d)Ordered By: Ashleigh Rashid on 11-22-2021 Neutrophils/100 WBC (Bld) 60.6 % . [facility] No Panel InformationOrdered By: Ashleigh Rashid on 11-22-2021 Estimated GFR () 59 mL/Min [facility] Comment on above: GFR estimated refere nce range: According to KDOQI guidelines, <60 ml/min/1.73m2 is sufficient to diagnose a patient with chronic kidney disease. Pharmacy Creatinine Clearance (Chem 44.22 [facility] Platelet mean volume Auto (B ld) [Entitic vol]Ordered By: Ashleigh Rashid on 11-22-2021 Platelet mean volume (Bld) [Entitic vol] 9.7 fL 6.3-10.7 [facility] Platelets Auto (Bld) [#/Vol] Ordered By: Ashleigh Rashid on 11-22-2021 Platelets (Bld) [#/Vol] 184 10*3/uL 150-450 [facility] Protein [Mass/volume] in Ser um or PlasmaOrdered By: Ashleigh Rashid on 11-22-2021 Protein [Mass/Vol] 5.4 g/dL 6.1-7.9 [facility] RBC Auto (Bld) [#/Vol]Ordere d By: Ashleigh Rashid on 11-22-2021 RBC (Bld) [#/Vol] 4.43 10*6/uL 3.60-5.00 [facility] Serum or plasma alanine zapata otransferase measurement without P-5'-P (enzymatic activiOrdered By: Ashleigh Rashid on 11-22-2021 ALT No additional P-5'-P [Catalytic activity/Vol] 16 U/L [facility] Serum or plasma albumin/glob ulin mass ratioOrdered By: Ashleigh Rashid on 11-22-2021 Albumin/Globulin [Mass ratio] 1.3 {ratio} [facility] Serum or plasma alkaline brandy sphatase measurement (enzymatic activity/volume)Ordered By: Ashleigh Rashid on 11-22-2021 ALP [Catalytic activity/Vol] 70 U/L 32-92 [facility] Serum or plasma anion gap de terminationOrdered By: Ashleigh Rashid on 11-22-2021 Anion gap [Moles/Vol] 12.2 mmol/L 6.0-15.0 [facility] Serum or plasma aspartate am inotransferase measurement (enzymatic activity/volume)Ordered By: Ashleigh Rashid on 11-22-2021 AST [Catalytic activity/Vol] 15 U/L [facility] Serum or plasma calcium lay urement (mass/volume)Ordered By: Ashleigh Rashid on 11-22-2021 Calcium [Mass/Vol] 8.9 mg/dL 8.2-10.2 [facility] Serum or plasma chloride rosaline surement (moles/volume)Ordered By: Ashleigh Rashid on 11-22-2021 Chloride [Moles/Vol] 115 mmol/L 95-114 [facility] Serum or plasma glucose lay urement (mass/volume)Ordered By: Ashleigh Rashid on 11-22-2021 Glucose [Mass/Vol] 93 mg/dL 70-100 [facility] Comment on above: ADA recommended refe rence rangeRandom Glucose Reference Range is dependent on time and content of last meal. Glucose of more than 200 mg/dL in a nonstressed, ambulatory subject supports the diagnosis of Diabetes Mellitus. Serum or plasma potassium me asurement (moles/volume)Ordered By: Ashleigh Rashid on 11-22-2021 Potassium [Moles/Vol] 3.1 mmol/L 3.5-5.1 [facility] Serum or plasma sodium measu rement (moles/volume)Ordered By: Ashleigh Rashid on 11-22-2021 Sodium [Moles/Vol] 147 mmol/L 136-146 [facility] Serum or plasma total biliru bin measurement (mass/volume)Ordered By: Ashleigh Rashid on 11-22-2021 Bilirubin [Mass/Vol] 0.7 mg/dL 0.3-1.2 [facility] Serum or plasma total carbon dioxide measurement (moles/volume)Ordered By: Ashleigh Rashid on 11-22-2021 CO2 [Moles/Vol] 22.9 mmol/L 22.0-30.0 [facility] Serum or plasma urea nitroge n measurement (mass/volume)Ordered By: Ashleigh Rashid on 11-22-2021 Urea nitrogen [Mass/Vol] 28 mg/dL 9-23 [facility] Amphetamine Screen Ql (U)Ord ered By: Rafiq Bahena on 11-21-2021 Amphetamines Ql (U) Negative Negative [facility] Automated erythrocytes count in urine sediment (number/area)Ordered By: Rafiq Bahena on 11-21-2021 RBC Auto (Urine sed) [#/Area] 0-1 [HPF] 0-4 [facility] Automated leukocytes count i n urine sediment (number/area)Ordered By: Rafiq Bahena on 11-21-2021 WBC Auto (Urine sed) [#/Area] 3-4 [HPF] 0-4 [facility] Barbiturates [Presence] in U rineOrdered By: Rafiq Bahena on 11-21-2021 Barbiturates Ql (U) Negative Negative [facility] Basophils Auto (Bld) [#/Vol] Ordered By: Rafiq Bahena on 11-21-2021 Basophils (Bld) [#/Vol] 0.0 10*3/uL 0.0-0.2 [facility] Basophils/100 WBC Auto (Bld) Ordered By: Rafiq Bahena on 11-21-2021 Basophils/100 WBC (Bld) 0.8 % . [facility] Benzodiazepines [Presence] i n UrineOrdered By: Rafiq Bahena on 11-21-2021 Benzodiazepines Ql (U) Negative Negative Fi [facility] Bilirubin Test strip Ql (U)O rdered By: Rafiq Bahena on 11-21-2021 Bilirubin Ql (U) Negative Negative [facility] Blood hemoglobin measurement (mass/volume)Ordered By: Rafiq Bahena on 11-21-2021 Hemoglobin (Bld) [Mass/Vol] 11.6 g/dL 11.8-15.4 [facility] Blood leukocytes automated c ount (number/volume)Ordered By: Rafiq Bahena on 11-21-2021 WBC (Bld) [#/Vol] 5.3 10*3/uL 4.5-11.0 [facility] Body fluid albumin measureme nt (mass/volume)Ordered By: Rafiq Bahena on 11-21-2021 Albumin (Body fld) [Mass/Vol] 3.4 g/dL 3.2-5.5 [facility] COVID CepheidOrdered By: Dagoberto Rashid on 11-21-2021 SARS-CoV-2 (COVID-19) Ab IA Ql Negative Negative [facility] Comment on above: This is a duplicate Cepheid Xpert Xpress CoV-2/Flu/RSV Plus RNA by RT-PCR result to be used for statistical tracking purpose only. SARS-CoV-2 (COVID-19) RNA SIOBHAN+probe Ql (Unsp spec) [facility] COVID-19 Positive/NegativeOr dered By: Rafiq Bahena on 11-21-2021 SARS-CoV-2 (COVID-19) N gene SIOBHAN+probe Ql (Resp) Indeterminate Negative [facility] Comment on above: Testing for SARS-CoV -2 by RT-PCRThis test was developed and its performance characteristics determined by [employer] ([employer] and validated at the [facility]. This test has not been FDA [...] (COVID-19) Ag IA.rapid Ql (Resp) Negative Negative [facility] Comment on above: This is a duplicate Sissy SARS Antigen (WALKER) result to be used for statistical tracking purpose only. Cannabinoids [Presence] in U rine by Screen methodOrdered By: Rafiq Bahena on 11-21-2021 Cannabinoids Screen Ql (U) Negative Negative [facility] Comment on above: These are unconfirme d results and should not be used for legal purposes. Drug Cut-Off Concentration: AMPH 1000 ng/mL RONALD 200 ng/mL CARMELA 200 ng/mL COCM 300 ng/mL OP 300 ng/mL PCP 25 ng/mL THC 20 ng/mL Color Auto (U)Ordered By: Vishnu Bahena on 11-21-2021 Color (U) Yellow Yellow [facility] Creatinine and Glomerular fi ltration rate.predicted panel (S/P/Bld)Ordered By: Rafiq Bahena on 11-21-2021 Creatinine [Mass/Vol] 2.08 mg/dL 0.44-1.03 [facility] Eosinophils Auto (Bld) [#/Vo l]Ordered By: Rafiq Bahena on 11-21-2021 Eosinophils (Bld) [#/Vol] 0.2 10*3/uL 0.0-0.45 [facility] Eosinophils/100 WBC Auto (Bl d)Ordered By: Rafiq Bahena on 11-21-2021 Eosinophils/100 WBC (Bld) 3.7 % . [facility] Erythrocyte distribution wid th Auto (RBC) [Ratio]Ordered By: Rafiq Bahena on 11-21-2021 Erythrocyte distribution width (RBC) [Ratio] 20.4 % 11.9-15.3 [facility] Estimated glomerular filtrat ion rate (GFR) non- AmericanOrdered By: Rafiq Bahena on 11-21-2021 GFR/1.73 sq M.predicted among non-blacks MDRD (S/P/Bld) [Vol rate/Area] 23 mL/Min [facility] Globulin Calc (S) [Mass/Vol] Ordered By: Rafiq Bahena on 11-21-2021 Globulin (S) [Mass/Vol] 2.1 g/dL [facility] Glucose Glucometer (BldC) [M ass/Vol]Ordered By: Rafiq Bahena on 11-21-2021 Glucose [Mass/Vol] 134 mg/dL [facility] Comment on above: Random Glucose Refer ence Range is dependent on time and content of last meal. Glucose of more than 200 mg/dL in a nonstressed, ambulatory subject supports the diagnosis of Diabetes Mellitus. Hematocrit Auto (Bld) [Volum e fraction]Ordered By: Rafiq Bahena on 11-21-2021 Hematocrit (Bld) [Volume fraction] 35.6 % 34.0-46.4 [facility] Ketones Auto test strip (U) [Mass/Vol]Ordered By: Rafiq Bahena on 11-21-2021 Ketones (U) [Mass/Vol] Negative Negative [facility] and [facility] hem[facility] - challengeOrdered By: Rafiq Bahena on 11-21-2021 CO2 [Moles/Vol] 23.8 mmol/L 23.0-27.0 [facility] HCO3 (Bld) [Moles/Vol] 22.6 mmol/L 23.0-29.0 [facility] - Drug toxicology Ordered By: Rafiq Bahena on 11-21-2021 Opiates Ql (U) Negative Negative [facility] - Hematology and Cell countsOrdered By: Rafiq Bahena on 11-21-2021 Nucleated RBC/100 WBC (Bld) [Ratio] 0.0 % 0-0.5 [facility] - UrinalysisOrder ed By: Rafiq Bahena on 11-21-2021 Hyaline casts LM Ql (Urine sed) 0-8 [LPF] 0-8 [facility] Lymphocytes Auto (Bld) [#/Vo l]Ordered By: Rafiq Bahena on 11-21-2021 Lymphocytes (Bld) [#/Vol] 1.1 10*3/uL 1.00-4.8 [facility] Lymphocytes/100 WBC Auto (Bl d)Ordered By: Rafiq Bahena on 11-21-2021 Lymphocytes/100 WBC (Bld) 20.4 % . [facility] MCH Auto (RBC) [Entitic mass ]Ordered By: Rafiq Bahena on 11-21-2021 MCH (RBC) [Entitic mass] 26.9 pg 24.7-34.3 [facility] MCHC Auto (RBC) [Mass/Vol]Or dered By: Rafiq Bahena on 11-21-2021 MCHC (RBC) [Mass/Vol] 32.6 g/dL 32.0-35.0 [facility] MCV Auto (RBC) [Entitic vol] Ordered By: Rafiq Bahena on 11-21-2021 MCV (RBC) [Entitic vol] 82.5 fL 80-100 [facility] Monocyte %Ordered By: Rafiq Bahena on 11-21-2021 Monocyte % 17 umol/L 11-35 [facility] Monocytes Auto (Bld) [#/Vol] Ordered By: Rafiq Bahena on 11-21-2021 Monocytes (Bld) [#/Vol] 0.5 10*3/uL 0.0-0.8 [facility] Monocytes/100 WBC Auto (Bld) Ordered By: Rafiq Bahena on 11-21-2021 Monocytes/100 WBC (Bld) 9.9 % . [facility] Neutrophils Auto (Bld) [#/Vo l]Ordered By: Rafiq Bahena on 11-21-2021 Neutrophils (Bld) [#/Vol] 3.5 10*3/uL 1.8-7.7 [facility] Neutrophils/100 WBC Auto (Bl d)Ordered By: Rafiq Bahena on 11-21-2021 Neutrophils/100 WBC (Bld) 65.2 % . [facility] Nitrite Test strip Ql (U)Ord ered By: Rafiq aBhena on 11-21-2021 Nitrite Ql (U) Positive Negative [facility] No Panel InformationOrdered By: Ashleigh Rashid on 11-21-2021 Vitamin B12 Level > 7500 pg/mL 180-914 [facility] No Panel InformationOrdered By: Rafiq Bahena on 11-21-2021 Arterial Blood Base Excess -1.9 mmol/L -3.0-3.0 [facility] Arterial Blood Oxygen Content 7.1 mmol/L 6.6-9.7 [facility] Arterial Blood Oxygen Saturation 95.9 % 95.0-100.0 [facility] Arterial Blood Partial Pressure CO2 37.8 mm[Hg] 35.0-45.0 [facility] Arterial Blood Partial Pressure O2 82.7 mm[Hg] 80.0-100.0 [facility] Arterial Blood pH 7.40 7.35-7.45 [facility] Blood Gas Critical Value See comment [facility] Comment on above: Critical Value sargent d on: 11/21/2021 at 06:17 Blood Gas Sample Site Left radial [facility] FiO2 21 % [facility] Estimated GFR () 28 mL/Min [facility] Comment on above: GFR estimated refere nce range: According to KDOQI guidelines, <60 ml/min/1.73m2 is sufficient to diagnose a patient with chronic kidney disease. Pharmacy Creatinine Clearance (Chem 22.98 [facility] Bedside Glucose Comment Glu2: cleaned meter [facility] Phencyclidine Screen Ql (U)O rdered By: Rafiq Bahena on 11-21-2021 Phencyclidine Ql (U) Negative Negative [facility] Platelet mean volume Auto (B ld) [Entitic vol]Ordered By: Rafiq Bahena on 11-21-2021 Platelet mean volume (Bld) [Entitic vol] 9.6 fL 6.3-10.7 [facility] Platelets Auto (Bld) [#/Vol] Ordered By: Rafiq Bahena on 11-21-2021 Platelets (Bld) [#/Vol] 140 10*3/uL 150-450 [facility] Protein Auto test strip (U) [Mass/Vol]Ordered By: Rafiq Bahena on 11-21-2021 Protein (U) [Mass/Vol] Negative Negative [facility] Protein [Mass/volume] in Ser um or PlasmaOrdered By: Rafiq Bahena on 11-21-2021 Protein [Mass/Vol] 5.5 g/dL 6.1-7.9 [facility] RBC Auto (Bld) [#/Vol]Ordere d By: Rafiq Bahena on 11-21-2021 RBC (Bld) [#/Vol] 4.31 10*6/uL 3.60-5.00 [facility] Serum or plasma alanine zapata otransferase measurement without P-5'-P (enzymatic activiOrdered By: Rafiq Bahena on 11-21-2021 ALT No additional P-5'-P [Catalytic activity/Vol] 17 U/L 10-60 [facility] Serum or plasma albumin/glob ulin mass ratioOrdered By: Rafiq Bahena on 11-21-2021 Albumin/Globulin [Mass ratio] 1.6 {ratio} [facility] Serum or plasma alkaline brandy sphatase measurement (enzymatic activity/volume)Ordered By: Rafiq Bahena on 11-21-2021 ALP [Catalytic activity/Vol] 74 U/L 32-92 [facility] Serum or plasma anion gap de terminationOrdered By: Rafiq Bahena on 11-21-2021 Anion gap [Moles/Vol] 14.6 mmol/L 6.0-15.0 [facility] Serum or plasma aspartate am inotransferase measurement (enzymatic activity/volume)Ordered By: Rafiq Bahena on 11-21-2021 AST [Catalytic activity/Vol] 19 U/L 10 [facility] Serum or plasma calcium lay urement (mass/volume)Ordered By: Rafiq Bahena on 11-21-2021 Calcium [Mass/Vol] 9.1 mg/dL 8.2-10.2 [facility] Serum or plasma chloride rosaline surement (moles/volume)Ordered By: Rafiq Bahena on 11-21-2021 Chloride [Moles/Vol] 107 mmol/L 95-114 [facility] Serum or plasma ethanol lay urement (mass/volume)Ordered By: Rafiq Bahena on 11-21-2021 Ethanol [Mass/Vol] mg/dL [facility] Ethanol [Mass/Vol] TNP [facility] Comment on above: Test not performed Serum or plasma glucose lay urement (mass/volume)Ordered By: Rafiq Bahena on 11-21-2021 Glucose [Mass/Vol] 124 mg/dL 70-100 [facility] Comment on above: ADA recommended refe rence rangeRandom Glucose Reference Range is dependent on time and content of last meal. Glucose of more than 200 mg/dL in a nonstressed, ambulatory subject supports the diagnosis of Diabetes Mellitus. Serum or plasma potassium me asurement (moles/volume)Ordered By: Rafiq Bahena on 11-21-2021 Potassium [Moles/Vol] 3.1 mmol/L 3.5-5.1 [facility] Serum or plasma sodium measu rement (moles/volume)Ordered By: Rafiq Bahena on 11-21-2021 Sodium [Moles/Vol] 142 mmol/L 136-146 [facility] Serum or plasma total biliru bin measurement (mass/volume)Ordered By: Rafiq Bahena on 11-21-2021 Bilirubin [Mass/Vol] 0.3 mg/dL 0.3-1.2 [facility] Serum or plasma total carbon dioxide measurement (moles/volume)Ordered By: Rafiq Bahena on 11-21-2021 CO2 [Moles/Vol] 23.5 mmol/L 22.0-30.0 [facility] Serum or plasma urea nitroge n measurement (mass/volume)Ordered By: Rafiq Bahena on 11-21-2021 Urea nitrogen [Mass/Vol] 49 mg/dL 9- [facility] Specific gravity Auto test s trip (U) [Rel density]Ordered By: Rafiq Bahena on 11-21-2021 Specific gravity (U) [Rel density] 1.010 1.001-1.030 [facility] Squamous epithelial cells de tection in urine sediment by light microscopyOrdered By: Rafiq Bahena on 11-21-2021 Epithelial cells.squamous LM Ql (Urine sed) 1-2 [HPF] 0-2 [facility] TSH DL <= 0.005 mIU/L QnOrde red By: Rafiq Bahena on 11-21-2021 TSH Qn 2.40 m[IU]/L 0.45-5.33 [facility] Thyroxine (T4) free [Mass/vo lume] in Serum or PlasmaOrdered By: Rafiq Bahena on 11-21-2021 Free T4 [Mass/Vol] 0.68 ng/dL 0.61-1.12 [facility] Troponin I.cardiac [Mass/vol ume] in Serum or Plasma by High sensitivity methodOrdered By: Rafiq Bahena on 11-21-2021 Troponin I.cardiac High sensitivity method [Mass/Vol] 6 pg/mL 0-15 [facility] Urine bacteria detection by automated methodOrdered By: Rafiq Bahena on 11-21-2021 Bacteria Auto Ql (U) 2+ None Seen [facility] Urine clarity by refractomet ry automatedOrdered By: Rafiq Bahena on 11-21-2021 Clarity Refractometry automated (U) Clear Clear [facility] Urine cocaine detectionOrder ed By: Rafiq Bahena on 11-21-2021 Cocaine Ql (U) Negative Negative [facility] Urine glucose measurement by automated test strip (mass/volume)Ordered By: Rafiq Bahena on 11-21-2021 Glucose Auto test strip (U) [Mass/Vol] Normal mg/dL Normal [facility] Urine hemoglobin detection b y automated test stripOrdered By: Rafiq Bahena on 11-21-2021 Hemoglobin Auto test strip Ql (U) Negative Negative [facility] Urine leukocyte esterase det ection by automated test stripOrdered By: Rafiq Bahena on 11-21-2021 Leukocyte esterase Auto test strip Ql (U) 1+ Negative [facility] Urobilinogen Auto test strip (U) [Mass/Vol]Ordered By: Rafiq Bahena on 11-21-2021 Urobilinogen (U) [Mass/Vol] Normal mg/dL Normal [facility] pH Auto test strip (U)Ordere d By: Rafiq Bahena on 11-21-2021 pH (U) 5.5 [pH] 5.0-9.0 [facility] CBC AUTO DIFFon 10-24-2021 BASO # 0.1 103/ul Normal 0.0-0.1 [facility] Comment on above: Performed By: #### C BC #### [facility] [address] [place] [address] Dr. Grzegorz Wang Basophils/100 WBC (Bld) 0.6 % Normal 0.2-2.0 [facility] Comment on above: Performed By: #### C BC #### [facility] [address] [place] [address] Dr. Grzegorz Wang EO # 0.4 103/ul Normal 0.0-0.7 [facility] Comment on above: Performed By: #### C BC #### [facility] [address] [place] [address] Dr. Grzegorz Wang Eosinophils/100 WBC (Bld) 5.0 % Normal 0.9-7.0 [facility] Comment on above: Performed By: #### C BC #### [facility] [address] [place] [address] Dr. Grzegorz Wang Erythrocyte distribution width (RBC) [Ratio] 18.6 % Critically high 11.0-15.0 [facility] Comment on above: Performed By: #### C BC #### [facility] [address] [place] [address] Dr. Grzegorz Wang Hematocrit (Bld) [Volume fraction] 35.7 % Critically low 36.0-48.0 [facility] Comment on above: Performed By: #### C BC #### [facility] [address] [place] [address] Dr. Grzegorz Wang Hemoglobin (Bld) [Mass/Vol] 11.2 g/dL Critically low 12.0-16.0 [facility] Comment on above: Performed By: #### C BC #### [facility] [address] [place] [address] Dr. Grzegorz Wang IG # 0.04 10e3/ul Critically high 0.00-0.03 [facility] Comment on above: Performed By: #### C BC #### [facility] [address] [place] [address] Dr. Grzegorz Wang IG % 0.5 % Normal 0.0-0.5 [facility] Comment on above: Performed By: #### C BC #### [facility] [address] [place] [address] Dr. Grzegorz Wang LYMPH # 1.9 103/ul Normal 1.2-3.8 [facility] Comment on above: Performed By: #### C BC #### [facility] [address] [place] [address] Dr. Grzegorz Wang Lymphocytes/100 WBC (Bld) 22.2 % Normal 20.5-60.0 [facility] Comment on above: Performed By: #### C BC #### [facility] [address] [place] [address] Dr. Grzegorz Wang MANUAL DIFF REQ NO Normal [facility] Comment on above: Performed By: #### C BC #### [facility] [address] [place] [address] Dr. Grzegorz Wang MCH (RBC) [Entitic mass] 26.4 pg Critically low 26.7-34.0 [facility] Comment on above: Performed By: #### C BC #### [facility] [address] [place] [address] Dr. Grzegorz Wang MCHC (RBC) [Mass/Vol] 31.4 g/dL Normal 29.9-35.2 [facility] Comment on above: Performed By: #### C BC #### [facility] [address] [place] [address] Dr. Grzegorz Wang MCV (RBC) [Entitic vol] 84.2 fL Normal 81.0-99.0 [facility] Comment on above: Performed By: #### C BC #### [facility] [address] [place] [address] Dr. Grzegorz Wang MONO # 0.8 103/ul Normal 0.3-0.8 [facility] Comment on above: Performed By: #### C BC #### [facility] [address] [place] [address] Dr. Grzegorz Wang Monocytes/100 WBC (Bld) 10.0 % Normal 1.7-12.0 [facility] Comment on above: Performed By: #### C BC #### [facility] [address] [place] [address] Dr. Grzegorz Wang NEUT # 5.2 103/ul Normal 1.4-6.5 [facility] Comment on above: Performed By: #### C BC #### [facility] [address] [place] [address] Dr. Grzegorz Wang Neutrophils/100 WBC (Bld) 61.7 % Normal 43.0-75.0 [facility] Comment on above: Performed By: #### C BC #### [facility] [address] [place] [address] Dr. Grzegorz Wang Platelet mean volume (Bld) [Entitic vol] 11.8 fL Normal 9.5-13.5 [facility] Comment on above: Performed By: #### C BC #### [facility] [address] [place] [address] Dr. Grzegorz Wang PLT 219 103/ul Normal 150-450 [facility] Comment on above: Performed By: #### C BC #### [facility] [address] [place] [address] Dr. Grzegorz Wang RBC 4.24 106/ul Normal 4.20-5.40 [facility] Comment on above: Performed By: #### C BC #### [facility] [address] [place] [address] Dr. Grzegorz Wang WBC 8.4 103/ul Normal 4.0-11.0 [facility] Comment on above: Performed By: #### C BC #### [facility] [address] [place] [address] Dr. Grzegorz Wang PRBC LEUKOREDUCEDon 10-23-19 ABO and Rh group Nom (Bld) Cross Match Result Compatible Unit Blood Type O Pos Unit Number [id number] Status Information Transfused Product ID Red Blood Cells Product Code [id number] Cross Match Result Compatible Blood Bank Notes CALLED SARATH GLYNN RN ON MEDSUR 10/17/21 @ 0850 Unit Blood Type O Neg Unit Number [id number] Status Information Transfused Product ID Red Blood Cells Product Code [id number] Normal [facility] Comment on above: Performed By: #### C BC #### [facility] [address] [place] [address] Dr. Grzegorz Wang ABO and Rh group Nom (Bld) Cross Match Result Compatible Unit Blood Type O Neg Unit Number [id number] Status Information Transfused Product ID Red Blood Cells Product Code [id number] Cross Match Result Compatible Unit Blood Type O Neg Unit Number [id number] Status Information Transfused Product ID Red Blood Cells Product Code [id number] Normal [facility] Comment on above: Performed By: #### C BC #### [facility] [address] [place] [address] Dr. Grzegorz Wang CBC AUTO DIFFon 10-18-2021 BASO # 0.0 103/ul Normal 0.0-0.1 [facility] Comment on above: Performed By: #### C BC #### [facility] [address] [place] [address] Dr. Grzegorz Wang Basophils/100 WBC (Bld) 0.7 % Normal 0.2-2.0 [facility] Comment on above: Performed By: #### C BC #### [facility] [address] [place] [address] Dr. Grzegorz Wang EO # 0.2 103/ul Normal 0.0-0.7 [facility] Comment on above: Performed By: #### C BC #### [facility] [address] [place] [address] Dr. Grzegorz Wang Eosinophils/100 WBC (Bld) 2.9 % Normal 0.9-7.0 [facility] Comment on above: Performed By: #### C BC #### [facility] [address] [place] [address] Dr. Grzegorz Wang Erythrocyte distribution width (RBC) [Ratio] 17.8 % Critically high 11.0-15.0 [facility] Comment on above: Performed By: #### C BC #### [facility] [address] [place] [address] Dr. Grzegorz Wang Hematocrit (Bld) [Volume fraction] 30.1 % Critically low 36.0-48.0 [facility] Comment on above: Performed By: #### C BC #### [facility] [address] [place] [address] Dr. Grzegorz Wang Hemoglobin (Bld) [Mass/Vol] 9.6 g/dL Critically low 12.0-16.0 [facility] Comment on above: Performed By: #### C BC #### [facility] [address] [place] [address] Dr. Grzegorz Wang IG # 0.08 10e3/ul Critically high 0.00-0.03 [facility] Comment on above: Performed By: #### C BC #### [facility] [address] [place] [address] Dr. Grzegorz Wang IG % 1.3 % Critically high 0.0-0.5 [facility] Comment on above: Performed By: #### C BC #### [facility] [address] [place] [address] Dr. Grzegorz Wang LYMPH # 1.8 103/ul Normal 1.2-3.8 [facility] Comment on above: Performed By: #### C BC #### [facility] [address] [place] [address] Dr. Grzegorz Wang Lymphocytes/100 WBC (Bld) 29.4 % Normal 20.5-60.0 [facility] Comment on above: Performed By: #### C BC #### [facility] [address] [place] [address] Dr. Grzegorz Wang MANUAL DIFF REQ NO Normal [facility] Comment on above: Performed By: #### C BC #### [facility] [address] [place] [address] Dr. Grzegorz Wang MCH (RBC) [Entitic mass] 25.9 pg Critically low 26.7-34.0 [facility] Comment on above: Performed By: #### C BC #### [facility] [address] [place] [address] Dr. Grzegorz Wang MCHC (RBC) [Mass/Vol] 31.9 g/dL Normal 29.9-35.2 [facility] Comment on above: Performed By: #### C BC #### [facility] [address] [place] [address] Dr. Grzegorz Wang MCV (RBC) [Entitic vol] 81.4 fL Normal 81.0-99.0 [facility] Comment on above: Performed By: #### C BC #### [facility] [address] [place] [address] Dr. Grzegorz Wang MONO # 0.7 103/ul Normal 0.3-0.8 [facility] Comment on above: Performed By: #### C BC #### [facility] [address] [place] [address] Dr. Grzegorz Wang Monocytes/100 WBC (Bld) 11.9 % Normal 1.7-12.0 [facility] Comment on above: Performed By: #### C BC #### [facility] [address] [place] [address] Dr. Grzegorz Wang NEUT # 3.3 103/ul Normal 1.4-6.5 [facility] Comment on above: Performed By: #### C BC #### [facility] [address] [place] [address] Dr. Grzegorz Wang Neutrophils/100 WBC (Bld) 53.8 % Normal 43.0-75.0 [facility] Comment on above: Performed By: #### C BC #### [facility] [address] [place] [address] Dr. Grzegorz Wang Platelet mean volume (Bld) [Entitic vol] 10.5 fL Normal 9.5-13.5 [facility] Comment on above: Performed By: #### C BC #### [facility] [address] [place] [address] Dr. Grzegorz Wang PLT 206 103/ul Normal 150-450 [facility] Comment on above: Performed By: #### C BC #### [facility] [address] [place] [address] Dr. Grzegorz Wang RBC 3.70 106/ul Critically low 4.20-5.40 [facility] Comment on above: Performed By: #### C BC #### [facility] [address] [place] [address] Dr. Grzegorz Wang WBC 6.1 103/ul Normal 4.0-11.0 [facility] Comment on above: Performed By: #### C BC #### [facility] [address] [place] [address] Dr. Grzegorz Wang PROF CHEM 8 (BAS METB)on Anion gap [Moles/Vol] 9.6 mmol/L Normal [facility] Comment on above: Performed By: #### C BC #### [facility] [address] [place] [address] Dr. Grzegorz Wang Calcium [Mass/Vol] 8.5 mg/dL Normal 8.5-10.1 [facility] Comment on above: Performed By: #### C BC #### [facility] [address] [place] [address] Dr. Grzegorz Wang Chloride [Moles/Vol] 113 mmol/L Critically high 98-107 [facility] Comment on above: Performed By: #### C BC #### [facility] [address] [place] [address] Dr. Grzegorz Wang CO2 [Moles/Vol] 26.6 mmol/L Normal 21.0-32.0 [facility] Comment on above: Performed By: #### C BC #### [facility] [address] [address] [address] Grzegorz Wang Creatinine [Mass/Vol] 0.94 mg/dL Normal 0.55-1.02 [facility] Comment on above: Performed By: #### C BC #### [facility] [address] [address] [address] Grzegorz Wang EGFR-AF CAMBODIAN >60 Normal >=60 [facility] Comment on above: Performed By: #### C BC #### [facility] [address] [address] [address] Grzegorz Wang EGFR-NON AF CAMBODIAN 58 mL/min/1.73m2 Critically low >=60 [facility] Comment on above: Performed By: #### C BC #### [facility] [address] [address] [address] Grzegorz Wang Glucose [Mass/Vol] 97 mg/dL Normal 74-106 [facility] Comment on above: Performed By: #### C BC #### [facility] [address] [address] [address] Grzegorz Wang Potassium [Moles/Vol] 3.2 mmol/L Critically low 3.5-5.1 [facility] Comment on above: Performed By: #### C BC #### [facility] [address] [address] [address] Grzegorz Wang Sodium [Moles/Vol] 146 mmol/L Critically high 136-145 [facility] Comment on above: Performed By: #### C BC #### [facility] [address] [address] [address] Grzegorz Wang Urea nitrogen [Mass/Vol] 38.0 mg/dL Critically high 7.0-18.0 [facility] Comment on above: Performed By: #### C BC #### [facility] [address] [address] [address] Grzegorz Wang Urea nitrogen/Creatinine [Mass ratio] 40.4 mg/mg Normal [facility] Comment on above: Performed By: #### C BC #### [facility] [address] [address] [address] Grzegorz Wang CBC AUTO DIFFon 10-17-2021 BASO # 0.1 103/ul Normal 0.0-0.1 [facility] Comment on above: Performed By: #### C BC #### [facility] [address] [address] [address] Grzegorz Wang Basophils/100 WBC (Bld) 0.9 % Normal 0.2-2.0 [facility] Comment on above: Performed By: #### C BC #### [facility] [address] [address] [address] Grzegorz Wang EO # 0.2 103/ul Normal 0.0-0.7 [facility] Comment on above: Performed By: #### C BC #### [facility] [address] [place] [address] Dr. Grzegorz Wang Eosinophils/100 WBC (Bld) 3.1 % Normal 0.9-7.0 [facility] Comment on above: Performed By: #### C BC #### [facility] [address] [place] [address] Dr. Grzegorz Wang Erythrocyte distribution width (RBC) [Ratio] 17.6 % Critically high 11.0-15.0 [facility] Comment on above: Performed By: #### C BC #### [facility] [address] [place] [address] Dr. Grzegorz Wang Hematocrit (Bld) [Volume fraction] 35.7 % Critically low 36.0-48.0 [facility] Comment on above: Performed By: #### C BC #### [facility] [address] [place] [address] Dr. Grzegorz Wang Hemoglobin (Bld) [Mass/Vol] 11.5 g/dL Critically low 12.0-16.0 [facility] Comment on above: Result Comment: rcvd . blood Performed By: #### C BC #### [facility] [address] [place] [address] Dr. Grzegorz Wang IG # 0.18 10e3/ul Critically high 0.00-0.03 [facility] Comment on above: Performed By: #### C BC #### [facility] [address] [place] [address] Dr. Grzegorz Wang IG % 2.6 % Critically high 0.0-0.5 [facility] Comment on above: Performed By: #### C BC #### [facility] [address] [place] [address] Dr. Grzegorz Wang LYMPH # 1.5 103/ul Normal 1.2-3.8 [facility] Comment on above: Performed By: #### C BC #### [facility] [address] [place] [address] Dr. Grzegorz Wang Lymphocytes/100 WBC (Bld) 21.4 % Normal 20.5-60.0 [facility] Comment on above: Performed By: #### C BC #### [facility] [address] [place] [address] Dr. Grzegorz Wang MANUAL DIFF REQ NO Normal [facility] Comment on above: Performed By: #### C BC #### [facility] [address] [place] [address] Dr. Grzegorz Wang MCH (RBC) [Entitic mass] 26.0 pg Critically low 26.7-34.0 [facility] Comment on above: Performed By: #### C BC #### [facility] [address] [place] [address] Dr. Grzegorz Wang MCHC (RBC) [Mass/Vol] 32.2 g/dL Normal 29.9-35.2 [facility] Comment on above: Performed By: #### C BC #### [facility] [address] [place] [address] Dr. Grzegorz Wagn MCV (RBC) [Entitic vol] 80.6 fL Critically low 81.0-99. 0 [facility] Comment on above: Performed By: #### C BC #### [facility] [address] [place] [address] Dr. Grzegorz Wang MONO # 0.7 103/ul Normal 0.3-0.8 [facility] Comment on above: Performed By: #### C BC #### [facility] [address] [place] [address] Dr. Grzegorz Wang Monocytes/100 WBC (Bld) 10.8 % Normal 1.7-12.0 [facility] Comment on above: Performed By: #### C BC #### [facility] [address] [place] [address] Dr. Grzegorz Wang NEUT # 4.2 103/ul Normal 1.4-6.5 [facility] Comment on above: Performed By: #### C BC #### [facility] [address] [place] [address] Dr. Grzegorz Wang Neutrophils/100 WBC (Bld) 61.2 % Normal 43.0-75.0 [facility] Comment on above: Performed By: #### C BC #### [facility] [address] [place] [address] Dr. Grzegorz Wang Platelet mean volume (Bld) [Entitic vol] 9.9 fL Normal 9.5-13.5 [facility] Comment on above: Performed By: #### C BC #### [facility] [address] [place] [address] Dr. Grzegorz Wang PLT 228 103/ul Normal 150-450 [facility] Comment on above: Performed By: #### C BC #### [facility] [address] [place] [address] Dr. Grzegorz Wang RBC 4.43 106/ul Normal 4.20-5.40 [facility] Comment on above: Performed By: #### C BC #### [facility] [address] [place] [address] Dr. Grzegorz Wang WBC 6.9 103/ul Normal 4.0-11.0 [facility] Comment on above: Performed By: #### C BC #### [facility] [address] [place] [address] Dr. Grzegorz Wang BASO # 0.0 103/ul Normal 0.0-0.1 [facility] Comment on above: Performed By: #### C BC #### [facility] [address] [address] [address] Grzegorz Wang Basophils/100 WBC (Bld) 0.8 % Normal 0.2-2.0 [facility] Comment on above: Performed By: #### C BC #### [facility] [address] [address] [address] Grzegorz Wang EO # 0.1 103/ul Normal 0.0-0.7 [facility] Comment on above: Performed By: #### C BC #### [facility] [address] [address] [address] Grzegorz Wang Eosinophils/100 WBC (Bld) 2.4 % Normal 0.9-7.0 [facility] Comment on above: Performed By: #### C BC #### [facility] [address] [place] [address] Dr. Grzegorz Wang Erythrocyte distribution width (RBC) [Ratio] 16.8 % Critically high 11.0-15.0 [facility] Comment on above: Performed By: #### C BC #### [facility] [address] [place] [address] Dr. Grzegorz Wang Hematocrit (Bld) [Volume fraction] 23.2 % Critically low 36.0-48.0 [facility] Comment on above: Performed By: #### C BC #### [facility] [address] [place] [address] Dr. Grzegorz Wang Hemoglobin (Bld) [Mass/Vol] 7.4 g/dL Critically low 12.0-16.0 [facility] Comment on above: Performed By: #### C BC #### [facility] [address] [place] [address] Dr. Grzegorz Wang IG # 0.05 10e3/ul Critically high 0.00-0.03 [facility] Comment on above: Performed By: #### C BC #### [facility] [address] [address] [address] Grzegorz Wang IG % 1.0 % Critically high 0.0-0.5 [facility] Comment on above: Performed By: #### C BC #### [facility] [address] [address] [address] Grzegorz Wang LYMPH # 1.4 103/ul Normal 1.2-3.8 [facility] Comment on above: Performed By: #### C BC #### [facility] [address] [address] [address] Grzegorz Wang Lymphocytes/100 WBC (Bld) 27.8 % Normal 20.5-60.0 [facility] Comment on above: Performed By: #### C BC #### [facility] [address] [address] [address] Grzegorz Wang MANUAL DIFF REQ NO Normal [facility] Comment on above: Performed By: #### C BC #### [facility] [address] [place] [address] Dr. Grzegorz Wang MCH (RBC) [Entitic mass] 25.6 pg Critically low 26.7-34.0 [facility] Comment on above: Performed By: #### C BC #### [facility] [address] [place] [address] Dr. Grzegorz Wang MCHC (RBC) [Mass/Vol] 31.9 g/dL Normal 29.9-35.2 [facility] Comment on above: Performed By: #### C BC #### [facility] [address] [place] [address] Dr. Grzegorz Wang MCV (RBC) [Entitic vol] 80.3 fL Critically low 81.0-99. 0 [facility] Comment on above: Performed By: #### C BC #### [facility] [address] [place] [address] Dr. Grzegorz Wang MONO # 0.6 103/ul Normal 0.3-0.8 [facility] Comment on above: Performed By: #### C BC #### [facility] [address] [place] [address] Dr. Grzegorz Wang Monocytes/100 WBC (Bld) 11.6 % Normal 1.7-12.0 [facility] Comment on above: Performed By: #### C BC #### [facility] [address] [address] [address] Grzegorz Wang NEUT # 2.8 103/ul Normal 1.4-6.5 [facility] Comment on above: Performed By: #### C BC #### [facility] [address] [place] [address] Dr. Grzegorz Wang Neutrophils/100 WBC (Bld) 56.4 % Normal 43.0-75.0 [facility] Comment on above: Performed By: #### C BC #### [facility] [address] [place] [address] Dr. Grzegorz Wang Platelet mean volume (Bld) [Entitic vol] 10.0 fL Normal 9.5-13.5 [facility] Comment on above: Performed By: #### C BC #### [facility] [address] [place] [address] Dr. Grzegorz Wang PLT 193 103/ul Normal 150-450 [facility] Comment on above: Performed By: #### C BC #### [facility] [address] [place] [address] Dr. Grzegorz Wang RBC 2.89 106/ul Critically low 4.20-5.40 [facility] Comment on above: Performed By: #### C BC #### [facility] [address] [place] [address] Dr. Grzegorz Wang WBC 4.9 103/ul Normal 4.0-11.0 [facility] Comment on above: Performed By: #### C BC #### [facility] [address] [place] [address] Dr. Grzegorz Wang PROF CHEM 8 (BAS METB)on Anion gap [Moles/Vol] 11.4 mmol/L Normal [facility] Comment on above: Performed By: #### A LUCHO OWENA #### [facility] [address] [place] [address] Dr. Grzegorz Wang Calcium [Mass/Vol] 8.3 mg/dL Critically low 8.5-10.1 [facility] Comment on above: Performed By: #### A MY, LIPA #### [facility] [address] [address] [address] Grzegorz Wang Chloride [Moles/Vol] 116 mmol/L Critically high 98-107 [facility] Comment on above: Performed By: #### A MY, LIPA #### [facility] [address] [address] [address] Grzegorz Wang CO2 [Moles/Vol] 21.1 mmol/L Normal 21.0-32.0 [facility] Comment on above: Performed By: #### A MY, LIPA #### [facility] [address] [address] [address] Grzegorz Wang Creatinine [Mass/Vol] 1.07 mg/dL Critically high 0.55-1.02 [facility] Comment on above: Performed By: #### A BRAYDEN, LIPA #### [facility] [address] [address] [address] Grzegorz Wang EGFR-AF CAMBODIAN >60 Normal >=60 [facility] Comment on above: Performed By: #### A BRAYDEN, LIPA #### [facility] [address] [address] [address] Grzegorz Wang EGFR-NON AF CAMBODIAN 50 mL/min/1.73m2 Critically low >=60 [facility] Comment on above: Performed By: #### A BRAYDEN, LIPA #### [facility] [address] [address] [address] Grzegorz Wang Glucose [Mass/Vol] 90 mg/dL Normal 74-106 [facility] Comment on above: Performed By: #### A BRAYDEN, LIPA #### [facility] [address] [address] [address] Grzegorz Wang Potassium [Moles/Vol] 3.5 mmol/L Normal 3.5-5.1 [facility] Comment on above: Performed By: #### A MY, LIPA #### [facility] [address] [address] [address] Grzegorz Wang Sodium [Moles/Vol] 145 mmol/L Normal 136-145 [facility] Comment on above: Performed By: #### A MY, LIPA #### [facility] [address] [place] [address] Dr. Grzegorz Wang Urea nitrogen [Mass/Vol] 59.0 mg/dL Critically high 7.0-18.0 [facility] Comment on above: Performed By: #### A MY, LIPA #### [facility] [address] [place] [address] Dr. Grzegorz Wang Urea nitrogen/Creatinine [Mass ratio] 55.1 mg/mg Normal [facility] Comment on above: Performed By: #### A BRAYDEN, LIPA #### [facility] [address] [place] [address] Dr. Grzegorz Wang AMYLASEon 10-16-2021 Amylase [Catalytic activity/Vol] 41 U/L Normal 25-115 [facility] Comment on above: Performed By: #### A BRAYDEN LIPA #### [facility] [address] [place] [address] Dr. Grzegorz Wang CBC AUTO DIFFon 10-16-2021 BASO # 0.1 103/ul Normal 0.0-0.1 [facility] Comment on above: Performed By: #### A BRAYDEN LIPA #### [facility] [address] [place] [address] Dr. Grzegorz Wang Basophils/100 WBC (Bld) 0.7 % Normal 0.2-2.0 [facility] Comment on above: Performed By: #### A BRAYDEN LIPA #### [facility] [address] [place] [address] Dr. Grzegorz Wang EO # 0.2 103/ul Normal 0.0-0.7 [facility] Comment on above: Performed By: #### A BRAYDEN LIPA #### [facility] [address] [place] [address] Dr. Grzegorz Wang Eosinophils/100 WBC (Bld) 2.4 % Normal 0.9-7.0 [facility] Comment on above: Performed By: #### A BRAYDEN, LIPA #### [facility] [address] [place] [address] Dr. Grzegorz Wang Erythrocyte distribution width (RBC) [Ratio] 17.1 % Critically high 11.0-15.0 [facility] Comment on above: Performed By: #### A PHIL OWEN #### [facility] [address] [place] [address] Dr. Grzegorz Wang Hematocrit (Bld) [Volume fraction] 26.0 % Critically low 36.0-48.0 [facility] Comment on above: Performed By: #### A BRAYDEN LIPA #### [facility] [address] [place] [address] Dr. Grzegorz Wang Hemoglobin (Bld) [Mass/Vol] 8.4 g/dL Critically low 12.0-16.0 [facility] Comment on above: Performed By: #### A LUCHO OWENA #### [facility] [address] [place] [address] Dr. Grzegorz Wang IG # 0.03 10e3/ul Normal 0.00-0.03 [facility] Comment on above: Performed By: #### A BRAYDEN LIPA #### [facility] [address] [place] [address] Dr. Grzegorz Wang IG % 0.4 % Normal 0.0-0.5 [facility] Comment on above: Performed By: #### A BRAYDEN LIPA #### [facility] [address] [place] [address] Dr. Grzegorz Wang LYMPH # 1.9 103/ul Normal 1.2-3.8 [facility] Comment on above: Performed By: #### A BRAYDEN LIPA #### [facility] [address] [place] [address] Dr. Grzegorz Wang Lymphocytes/100 WBC (Bld) 27.3 % Normal 20.5-60.0 [facility] Comment on above: Performed By: #### A LUCHO OWENA #### [facility] [address] [place] [address] Dr. Grzegorz Wang MANUAL DIFF REQ NO Normal [facility] Comment on above: Performed By: #### A LUCOH OWENA #### [facility] [address] [place] [address] Dr. Grzegorz Wang MCH (RBC) [Entitic mass] 26.0 pg Critically low 26.7-34.0 [facility] Comment on above: Performed By: #### A BRAYDEN LIPA #### [facility] [address] [place] [address] Dr. Grzegorz Wang MCHC (RBC) [Mass/Vol] 32.3 g/dL Normal 29.9-35.2 [facility] Comment on above: Performed By: #### A BRAYDEN, LIPA #### [facility] [address] [place] [address] Dr. Grzegorz Wang MCV (RBC) [Entitic vol] 80.5 fL Critically low 81.0-99. 0 [facility] Comment on above: Performed By: #### A BRAYDEN LIPA #### [facility] [address] [place] [address] Dr. Grzegorz Wang MONO # 0.7 103/ul Normal 0.3-0.8 [facility] Comment on above: Performed By: #### A BRAYDEN LIPA #### [facility] [address] [place] [address] Dr. Grzegorz Wang Monocytes/100 WBC (Bld) 10.5 % Normal 1.7-12.0 [facility] Comment on above: Performed By: #### A BRAYDEN LIPA #### [facility] [address] [place] [address] Dr. Grzegorz Wang NEUT # 4.1 103/ul Normal 1.4-6.5 [facility] Comment on above: Performed By: #### A BRAYDEN LIPA #### [facility] [address] [place] [address] Dr. Grzegorz Wang Neutrophils/100 WBC (Bld) 58.7 % Normal 43.0-75.0 [facility] Comment on above: Performed By: #### A BRAYDEN, LIPA #### [facility] [address] [place] [address] Dr. Grzegorz Wnag Platelet mean volume (Bld) [Entitic vol] 10.4 fL Normal 9.5-13.5 [facility] Comment on above: Performed By: #### A MY, LIPA #### [facility] [address] [address] [address] Grzegorz Wang PLT 217 103/ul Normal 150-450 [facility] Comment on above: Performed By: #### A MY, LIPA #### [facility] [address] [address] [address] Grzegorz Wang RBC 3.23 106/ul Critically low 4.20-5.40 [facility] Comment on above: Performed By: #### A MY, LIPA #### [facility] [address] [address] [address] Grzegorz Wang WBC 7.1 103/ul Normal 4.0-11.0 [facility] Comment on above: Performed By: #### A MY, LIPA #### [facility] [address] [place] [address] Dr. Grzegorz Wang BASO # 0.0 103/ul Normal 0.0-0.1 [facility] Comment on above: Performed By: #### C BC #### [facility] [address] [place] [address] Dr. Grzegorz Wang Basophils/100 WBC (Bld) 0.5 % Normal 0.2-2.0 [facility] Comment on above: Performed By: #### C BC #### [facility] [address] [place] [address] Dr. Grzegorz Wang EO # 0.1 103/ul Normal 0.0-0.7 [facility] Comment on above: Performed By: #### C BC #### [facility] [address] [place] [address] Dr. Grzegorz Wang Eosinophils/100 WBC (Bld) 0.8 % Critically low 0.9-7.0 [facility] Comment on above: Performed By: #### C BC #### [facility] [address] [place] [address] Dr. Grzegorz Wang Erythrocyte distribution width (RBC) [Ratio] 16.8 % Critically high 11.0-15.0 [facility] Comment on above: Performed By: #### C BC #### [facility] [address] [place] [address] Dr. Grzegorz Wang Hematocrit (Bld) [Volume fraction] 19.5 % Critically low 36.0-48.0 [facility] Comment on above: Performed By: #### C BC #### [facility] [address] [place] [address] Dr. Grzegorz Wang Hemoglobin (Bld) [Mass/Vol] 6.0 g/dL Critically low 12.0-16.0 [facility] Comment on above: Result Comment: repe ated Performed By: #### C BC #### [facility] [address] [place] [address] Dr. Grzegorz Wang IG # 0.05 10e3/ul Critically high 0.00-0.03 [facility] Comment on above: Performed By: #### C BC #### [facility] [address] [place] [address] Dr. Grzegorz Wang IG % 0.6 % Critically high 0.0-0.5 [facility] Comment on above: Performed By: #### C BC #### [facility] [address] [place] [address] Dr. Grzegorz Wang LYMPH # 1.8 103/ul Normal 1.2-3.8 [facility] Comment on above: Performed By: #### C BC #### [facility] [address] [place] [address] Dr. Grzegorz Wang Lymphocytes/100 WBC (Bld) 21.6 % Normal 20.5-60.0 [facility] Comment on above: Performed By: #### C BC #### [facility] [address] [place] [address] Dr. Grzegorz Wang MANUAL DIFF REQ NO Normal [facility] Comment on above: Performed By: #### C BC #### [facility] [address] [place] [address] Dr. Grzegorz Wang MCH (RBC) [Entitic mass] 23.4 pg Critically low 26.7-34.0 [facility] Comment on above: Performed By: #### C BC #### [facility] [address] [address] [address] Grzegorz Wang MCHC (RBC) [Mass/Vol] 30.6 g/dL Normal 29.9-35.2 [facility] Comment on above: Performed By: #### C BC #### [facility] [address] [address] [address] Grzegorz Wang MCV (RBC) [Entitic vol] 76.6 fL Critically low 81.0-99. 0 [facility] Comment on above: Performed By: #### C BC #### [facility] [address] [place] [address] Dr. Grzegorz Wang MONO # 0.6 103/ul Normal 0.3-0.8 [facility] Comment on above: Performed By: #### C BC #### [facility] [address] [place] [address] Dr. Grzegorz Wang Monocytes/100 WBC (Bld) 7.3 % Normal 1.7-12.0 [facility] Comment on above: Performed By: #### C BC #### [facility] [address] [place] [address] Dr. Grzegorz Wang NEUT # 5.9 103/ul Normal 1.4-6.5 [facility] Comment on above: Performed By: #### C BC #### [facility] [address] [place] [address] Dr. Grzegorz Wang Neutrophils/100 WBC (Bld) 69.2 % Normal 43.0-75.0 [facility] Comment on above: Performed By: #### C BC #### [facility] [address] [place] [address] Dr. Grzegorz Wang Platelet mean volume (Bld) [Entitic vol] 10.5 fL Normal 9.5-13.5 [facility] Comment on above: Performed By: #### C BC #### [facility] [address] [place] [address] Dr. Grzegorz Wang PLT 288 103/ul Normal 150-450 [facility] Comment on above: Performed By: #### C BC #### [facility] [address] [place], [place] [address] Dr. Grzegorz Wang RBC 2.52 106/ul Critically low 4.20-5.40 [facility] Comment on above: Performed By: #### C BC #### [facility] [address] [place], [place] [address] Dr. Grzegorz Wang WBC 8.5 103/ul Normal 4.0-11.0 [facility] Comment on above: Performed By: #### C BC #### [facility] [address] [place], [place] [address] ABD/PELVIS WO CONon [...] LYNN OLSON Date: 2021-10-16 13:53 Normal [facility] Covid-19 PCR (CVDTB)on SARS-CoV-2 (COVID-19) RNA SIOBHAN+probe Ql (Unsp spec) Not detected Normal NOT DETECTED [facility] Comment on above: Result Comment: When [...] for this test is supported by the [place] [employer] and Human Service's declaration that [...] used). Performed By: #### E RUR #### [facility] [address] [place] [address] Dr. Grzegorz aWng ER URINE PROFILEon 2 Bilirubin Ql (U) Negative Normal NEGATIVE [facility] Comment on above: Performed By: #### A BRAYDEN, LIPA #### [facility] [address] [place] [address] Dr. Grzegorz Wang Clarity (U) CLEAR Normal CLEAR [facility] Comment on above: Performed By: #### A BRAYDEN, LIPA #### [facility] Laboratory [address] [place] [address] Dr. Grzegorz Wang Color (U) LT. YELLOW Normal YELLOW [facility] Comment on above: Performed By: #### A BRAYDEN, LIPA #### [facility] [address] [place] [address] Dr. Grzegorz HERNANDEZD A micrscopic examination will be performed if indicated. Normal [facility] Comment on above: Performed By: #### A BRAYDEN, LIPA #### [facility] [address] [place] [address] Dr. Grzegorz Wang Glucose Ql (U) Negative Normal NEGATIVE [facility] Comment on above: Performed By: #### A BRAYDEN, LIPA #### [facility] [address] [place] [address] Dr. Grzegorz Wang Hemoglobin Ql (U) SMALL Abnormal NEGATIVE The [facility] Comment on above: Performed By: #### A BRAYDEN, LIPA #### [facility] [address] [place] [address] Dr. Grzegorz Wang Ketones Ql (U) Negative Normal NEGATIVE The [facility] Comment on above: Performed By: #### A MY, LIPA #### [facility] [address] [place] [address] Dr. Grzegorz Wang LEUKOCYTES TRACE Abnormal NEGATIVE [facility] Comment on above: Performed By: #### A MY, LIPA #### [facility] [address] [place] [address] Dr. Grzegorz Wang Nitrite Ql (U) Negative Normal NEGATIVE [facility] Comment on above: Performed By: #### A MY, LIPA #### [facility] [address] [place] [address] Dr. Grzegorz Wang pH (U) 5.5 [pH] Normal 5-9 [facility] Comment on above: Performed By: #### A MY, LIPA #### [facility] [address] [place] [address] Dr. Grzegorz Wang SPEC GRAVITY 1.005 Normal 1.005-<=1.0 25 [facility] Comment on above: Performed By: #### A MY, LIPA #### [facility] [address] [place] [address] Dr. Grzegorz Wang UA PROTEIN Negative Normal NEGATIVE/ TRACE [facility] Comment on above: Performed By: #### A MY, LIPA #### [facility] [address] [place] [address] Dr. Grzegorz Wang UR MICRO IND INDICATED Normal [facility] Comment on above: Performed By: #### A BRAYDEN, LIPA #### [facility] [address] [place] [address] Dr. Grzegorz Wang Urobilinogen Qn (U) 0.2 {Lidya'U}/dL Normal 0.2 - 1. 0 [facility] Comment on above: Performed By: #### A MY, LIPA #### [facility] [address] [place] [address] Dr. Grzegorz Wang LIPASEon 10-16-2021 Lipase [Catalytic activity/Vol] 77.0 U/L Normal 73.0-393.0 [facility] Comment on above: Performed By: #### A BRAYDEN LIPLuna #### [facility] [address] [place] [address] Dr. Grzegorz Wang OCC BLD IMMUNO SCREENon OCCULT BLOOD Positive Abnormal NEGATIVE [facility] Comment on above: Performed By: #### A BRAYDEN LIPA #### [facility] [address] [place] [address] Dr. Grzegorz Wang PROF 14(COMP METB)on 022 Albumin [Mass/Vol] 3.4 g/dL Normal 3.4-5.0 [facility] Comment on above: Performed By: #### C BC #### [facility] [address] [place] [address] Dr. Grzegorz Wang Albumin/Globulin [Mass ratio] 1.2 {ratio} Normal [facility] Comment on above: Performed By: #### C BC #### [facility] [address] [place] [address] Dr. Grzegorz Wang ALP [Catalytic activity/Vol] 77 U/L Normal 46-116 [facility] Comment on above: Performed By: #### C BC #### [facility] [address] [place] [address] Dr. Grzegorz Wang ALT [Catalytic activity/Vol] 18 U/L Normal 14-59 [facility] Comment on above: Performed By: #### C BC #### [facility] [address] [place] [address] Dr. Grzegorz Wang Anion gap [Moles/Vol] 15.3 mmol/L Normal [facility] Comment on above: Performed By: #### C BC #### [facility] [address] [place] [address] Dr. Grzegorz Wang AST [Catalytic activity/Vol] 17 U/L Normal 15-37 [facility] Comment on above: Performed By: #### C BC #### [facility] [address] [place] [address] Dr. Grzegorz Wang Bilirubin [Mass/Vol] 0.4 mg/dL Normal 0.2-1.0 [facility] Comment on above: Performed By: #### C BC #### [facility] [address] [address] [address] Grzegorz Wang Calcium [Mass/Vol] 8.5 mg/dL Normal 8.5-10.1 [facility] Comment on above: Performed By: #### C BC #### [facility] [address] [address] [address] Grzegorz Wang Chloride [Moles/Vol] 104 mmol/L Normal 98-107 [facility] Comment on above: Performed By: #### C BC #### [facility] [address] [address] [address] Grzegorz Wang CO2 [Moles/Vol] 21.2 mmol/L Normal 21.0-32.0 [facility] Comment on above: Performed By: #### C BC #### [facility] [address] [place] [address] Dr. Grzegorz Wang Creatinine [Mass/Vol] 1.68 mg/dL Critically high 0.55-1.02 [facility] Comment on above: Performed By: #### C BC #### [facility] [address] [address] [address] Grzegorz Wang EGFR-AF CAMBODIAN 36 mL/min/1.73m2 Critically low >=60 [facility] Comment on above: Performed By: #### C BC #### [facility] [address] [address] [address] Grzegorz Wang EGFR-NON AF CAMBODIAN 30 mL/min/1.73m2 Critically low >=60 [facility] Comment on above: Performed By: #### C BC #### [facility] [address] [address] [address] Grzegorz Wang Globulin (S) [Mass/Vol] 2.8 g/dL Normal [facility] Comment on above: Performed By: #### C BC #### [facility] [address] [address] [address] Grzegorz Wang Glucose [Mass/Vol] 101 mg/dL Normal 74-106 [facility] Comment on above: Performed By: #### C BC #### [facility] [address] [address] [address] Grzegorz Wang Potassium [Moles/Vol] 3.5 mmol/L Normal 3.5-5.1 [facility] Comment on above: Performed By: #### C BC #### [facility] [address] [address] [address] Grzegorz Wang Protein [Mass/Vol] 6.2 g/dL Critically low 6.4-8.2 [facility] Comment on above: Performed By: #### C BC #### [facility] [address] [address] [address] Grzegorz Wang Sodium [Moles/Vol] 137 mmol/L Normal 136-145 [facility] Comment on above: Performed By: #### C BC #### [facility] [address] [place] [address] Dr. Grzegorz Wang Urea nitrogen [Mass/Vol] 83.0 mg/dL Critically high 7.0-18.0 [facility] Comment on above: Result Comment: repe ated Performed By: #### C BC #### [facility] [address] [place] [address] Dr. Grzegorz Wang Urea nitrogen/Creatinine [Mass ratio] 49.4 mg/mg Normal [facility] Comment on above: Performed By: #### C BC #### [facility] [address] [place] [address] Dr. Grzegorz Wang PROTIMEon 10-16-2021 INR Coag (PPP) [Relative time] 0.99 {INR} Normal [facility] Comment on above: Performed By: #### P T, PTT #### [facility] [address] [place] [address] Dr. Grzegorz Wang INR GUIDELINES SEE BELOW Normal [facility] Comment on above: Result Comment: DENTON RED INR: 2.0 - 3.0 CONDITIONS NOT LISTED BELOW 2.5 - 3.5 FOR PROSTHETIC HEART VALVE REPLACEMENT 2.5 - 3.5 RECURRENT THROMBOSIS Performed By: #### P T, PTT #### [facility] [address] [place] [address] Dr. Grzegorz Wang PT Coag (PPP) [Time] 10.7 s Normal 9.0-11.6 [facility] Comment on above: Performed By: #### P T, PTT #### [facility] [address] [place] [address] Dr. Grzegorz Wang PTTon 10-16-2021 aPTT Coag (Bld) [Time] 23.5 s Normal 22.3-36.2 [facility] Comment on above: Performed By: #### P T, PTT #### [facility] [address] [place] [address] Dr. Grzegorz Wang TYPE AND SCREENon 10-16-2021 TYPE AND SCREEN Negative Normal [facility] Comment on above: Performed By: #### C BC #### [facility] [address] [place] [address] Dr. Grzegorz Wang URINE MICROSCOPIC ONLYon BACTERIA NONE SEEN Normal NONE SEEN [facility] Comment on above: Performed By: #### A MY, LIPA #### [facility] [address] [place] [address] Dr. Grzegorz Wang Bacteria identified Cx Nom (U) NOT INDICATED Normal [facility] Comment on above: Performed By: #### A MY, LIPA #### [facility] [address] [place] [address] Dr. Grzegorz Wang CAST NONE SEEN Normal NONE SEEN [facility] Comment on above: Performed By: #### A MY, LIPA #### [facility] [address] [place] [address] Dr. Grzegorz Wang Crystals LM Nom (Urine sed) NONE SEEN Normal NONE SEEN [facility] Comment on above: Performed By: #### A MY, LIPA #### [facility] [address] [place] [address] Dr. Grzegorz Wang Epithelial cells LM Ql (Urine sed) RARE Normal NONE SEEN /RARE [facility] Comment on above: Performed By: #### A MY, LIPA #### [facility] [address] [place] [address] Dr. Grzegorz Wang MUCOUS NONE SEEN Normal NONE SEEN [facility] Comment on above: Performed By: #### A MY, LIPA #### [facility] [address] [address] [address] Grzegorz Wang RBC NONE SEEN Abnormal 0-2 [facility] Comment on above: Performed By: #### A MY, LIPA #### [facility] [address] [address] [address] Grzegorz Wang WBC NONE SEEN Normal NONE SEEN [facility] Comment on above: Performed By: #### A MY, LIPA #### [facility] [address] [address] [address] Grzegorz Wang BNPon 09-02-2021 Natriuretic peptide B (Bld) [Mass/Vol] 140.0 pg/mL Normal <=900.0 [facility] Comment on above: Performed By: #### C BC #### [facility] [address] [place] [address] Dr. Grzegorz Wang CARDIAC BAMBI ADMITon 022 CK [Catalytic activity/Vol] 121 U/L Normal 26-192 [facility] Comment on above: Performed By: #### C BC #### [facility] [address] [place] [address] Dr. Grzegorz Wang CK.MB [Mass/Vol] 2.44 ng/mL Normal <=3.60 [facility] Comment on above: Performed By: #### C BC #### [facility] [address] [place] [address] Dr. Grzegorz Wang HSTROP 9.8 pg/mL Normal 4.0-51.3 [facility] Comment on above: Result Comment: CUT- OFF POINTS HAVE BEEN ESTABLISHED BASED ON THE FOURTH UNIVERSAL DEFINITIONS OF MYOCARDIAL INFARCTION. THE UPPER REFERENCE LIMIT (URL) OF TROPONIN, DEFINED THE 99TH PERCENTILE OF cTnI DISTRIBUTION IN A REFERENCE POPULATION, HAS BEEN CONFIRMED THE DECISION THRESHOLD FOR [place] DIAGNOSIS. Performed By: #### C BC #### [facility] [address] [place] [address] Dr. Grzegorz Wang MITZI 109 ng/mL Critically high 9-82 [facility] Comment on above: Performed By: #### C BC #### [facility] [address] [place] [address] Dr. Grzegorz Wang CBC AUTO DIFFon 09-02-2021 BASO # 0.0 103/ul Normal 0.0-0.1 [facility] Comment on above: Performed By: #### C BC #### [facility] [address] [place] [address] Dr. Grzegorz Wang Basophils/100 WBC (Bld) 0.5 % Normal 0.2-2.0 [facility] Comment on above: Performed By: #### C BC #### [facility] [address] [place] [address] Dr. Grzegorz Wang EO # 0.1 103/ul Normal 0.0-0.7 [facility] Comment on above: Performed By: #### C BC #### [facility] [address] [place] [address] Dr. Grzegorz Wang Eosinophils/100 WBC (Bld) 3.1 % Normal 0.9-7.0 [facility] Comment on above: Performed By: #### C BC #### [facility] [address] [place] [address] Dr. Grzegorz Wang Erythrocyte distribution width (RBC) [Ratio] 16.0 % Critically high 11.0-15.0 [facility] Comment on above: Performed By: #### C BC #### [facility] [address] [place] [address] Dr. Grzegorz Wang Hematocrit (Bld) [Volume fraction] 32.0 % Critically low 36.0-48.0 [facility] Comment on above: Performed By: #### C BC #### [facility] [address] [place] [address] Dr. Grzegorz Wang Hemoglobin (Bld) [Mass/Vol] 10.1 g/dL Critically low 12.0-16.0 [facility] Comment on above: Performed By: #### C BC #### [facility] [address] [place] [address] Dr. Grzegorz Wang IG # 0.01 10e3/ul Normal 0.00-0.03 [facility] Comment on above: Performed By: #### C BC #### [facility] [address] [place] [address] Dr. Grzegorz Wang IG % 0.3 % Normal 0.0-0.5 [facility] Comment on above: Performed By: #### C BC #### [facility] [address] [place] [address] Dr. Grzegorz Wang LYMPH # 1.7 103/ul Normal 1.2-3.8 [facility] Comment on above: Performed By: #### C BC #### [facility] [address] [place] [address] Dr. Grzegorz Wang Lymphocytes/100 WBC (Bld) 43.1 % Normal 20.5-60.0 [facility] Comment on above: Performed By: #### C BC #### [facility] [address] [place] [address] Dr. Grzegorz Wang MANUAL DIFF REQ NO Normal [facility] Comment on above: Performed By: #### C BC #### [facility] [address] [place] [address] Dr. Grzegorz Wang MCH (RBC) [Entitic mass] 23.9 pg Critically low 26.7-34.0 [facility] Comment on above: Performed By: #### C BC #### [facility] [address] [place] [address] Dr. Grzegorz Wang MCHC (RBC) [Mass/Vol] 31.6 g/dL Normal 29.9-35.2 [facility] Comment on above: Performed By: #### C BC #### [facility] [address] [place] [address] Dr. Grzegorz Wang MCV (RBC) [Entitic vol] 75.8 fL Critically low 81.0-99. 0 [facility] Comment on above: Performed By: #### C BC #### [facility] [address] [place] [address] Dr. Grzegorz Wang MONO # 0.4 103/ul Normal 0.3-0.8 [facility] Comment on above: Performed By: #### C BC #### [facility] [address] [place] [address] Dr. Grzegorz Wang Monocytes/100 WBC (Bld) 9.7 % Normal 1.7-12.0 [facility] Comment on above: Performed By: #### C BC #### [facility] [address] [address] [address] Grzegorz Wang NEUT # 1.7 103/ul Normal 1.4-6.5 [facility] Comment on above: Performed By: #### C BC #### [facility] [address] [place] [address] Dr. Grzegorz Wang Neutrophils/100 WBC (Bld) 43.3 % Normal 43.0-75.0 [facility] Comment on above: Performed By: #### C BC #### [facility] [address] [place] [address] Dr. Grzegorz Wang Platelet mean volume (Bld) [Entitic vol] 10.1 fL Normal 9.5-13.5 [facility] Comment on above: Performed By: #### C BC #### [facility] [address] [place] [address] Dr. Grzegorz Wang PLT 179 103/ul Normal 150-450 [facility] Comment on above: Performed By: #### C BC #### [facility] [address] [place] [address] Dr. Grzegorz Wang RBC 4.22 106/ul Normal 4.20-5.40 [facility] Comment on above: Performed By: #### C BC #### [facility] [address] [place] [address] Dr. Grzegorz Wang WBC 3.8 103/ul Critically low 4.0-11.0 [facility] Comment on above: Performed By: #### C BC #### [facility] [address] [place] [address] CSPINE WO CONon [...] JEAN-PIERRE GIRALDO Date: 2021-09-02 19:33 Normal [facility] CT STROKE HEAD WOon 09-03-19 CT [...] JEAN-PIERRE GIRALDO Date: 2021-09-02 19:29 Normal [facility] Covid-19 PCR (CVDTBH)on 08-12 SARS-CoV-2 (COVID-19) RNA SIOBHAN+probe Ql (Unsp spec) Detected Critically abnormal NOT DETECTED [facility] Comment on above: Result Comment: This test is not yet approved or cleared by the [place] FDA. When there are no FDA-approved or cleared tests available, and other criteria are met, FDA can make tests available under an emergency access mechanism called an Emergency Use Authorization (EUA). The EUA for this test is supported by the [place] of Health and Human Service's declaration that [...] used). Performed By: #### C BC #### [facility] [address] [place] [address] Dr. Grzegorz Wang DRUG SCREEN RAPID (URINE)on 09-02-2021 AMP Negative Normal NEGATIVE [facility] Comment on above: Performed By: #### E RUR #### [facility] [address] [place] [address] Dr. Grzegorz Wang BAR Negative Normal NEGATIVE [facility] Comment on above: Performed By: #### E RUR #### [facility] [address] [place] [address] Dr. Grzegorz Wang BUP Negative Normal NEGATIVE [facility] Comment on above: Performed By: #### E RUR #### [facility] [address] [place] [address] Dr. Grzegorz Wang BZO Negative Normal NEGATIVE [facility] Comment on above: Performed By: #### E RUR #### [facility] [address] [place] [address] Dr. Grzegorz Wang MITZY Negative Normal NEGATIVE [facility] Comment on above: Performed By: #### E RUR #### [facility] [address] [place] [address] Dr. Grzegorz Wang CUT-OFFS SEE BELOW Normal [facility] Comment on above: Result Comment: AMP [...] ng/mL Performed By: #### E RUR #### [facility] [address] [place] [address] Dr. Grzegorz Wang DRUG CUT HEADER DRUG CLASS TEST SYSTEM CUT-OFF CONCENTRATIONS ARE FOLLOWS: Normal [facility] Comment on above: Performed By: #### E RUR #### [facility] [address] [place] [address] Dr. Grzegorz Wang mAMP Negative Normal NEGATIVE [facility] Comment on above: Performed By: #### E RUR #### [facility] [address] [place] [address] Dr. Grzegorz Wang MTD Negative Normal NEGATIVE [facility] Comment on above: Performed By: #### E RUR #### [facility] [address] [place] [address] Dr. Grzegorz Wang OPI Negative Normal NEGATIVE [facility] Comment on above: Performed By: #### E RUR #### [facility] [address] [place] [address] Dr. Grzegorz Wang OXY Negative Normal NEGATIVE [facility] Comment on above: Performed By: #### E RUR #### [facility] [address] [place] [address] Dr. Grzegorz Wang PCP Negative Normal NEGATIVE [facility] Comment on above: Performed By: #### E RUR #### [facility] [address] [place] [address] Dr. Grzegorz Wang PPX Negative Normal NEGATIVE [facility] Comment on above: Performed By: #### E RUR #### [facility] [address] [place] [address] Dr. Grzegorz Wang TCA Positive Abnormal NEGATIVE [facility] Comment on above: Performed By: #### E RUR #### [facility] [address] [place] [address] Dr. Grzegorz Wang THC Negative Normal NEGATIVE [facility] Comment on above: Performed By: #### E RUR #### [facility] [address] [place] [address] Dr. Grzegorz Wang LACTATE/LACTIC ACIDon 2021 Lactate [Moles/Vol] 0.7 mmol/L Normal 0.4-1.9 [facility] Comment on above: Performed By: #### E RUR #### [facility] [address] [place] [address] Dr. Grzegorz Wang PROF 14(COMP METB)on 022 Albumin [Mass/Vol] 3.1 g/dL Critically low 3.4-5.0 [facility] Comment on above: Performed By: #### C BC #### [facility] [address] [place] [address] Dr. Grzegorz Wang Albumin/Globulin [Mass ratio] 1.0 {ratio} Normal [facility] Comment on above: Performed By: #### C BC #### [facility] [address] [place] [address] Dr. Grzegorz Wang ALP [Catalytic activity/Vol] 81 U/L Normal 46-116 [facility] Comment on above: Performed By: #### C BC #### [facility] [address] [place] [address] Dr. Grzegorz Wang ALT [Catalytic activity/Vol] 21 U/L Normal 14-59 [facility] Comment on above: Performed By: #### C BC #### [facility] [address] [place] [address] Dr. Grzegorz Wang Anion gap [Moles/Vol] 11.9 mmol/L Normal [facility] Comment on above: Performed By: #### C BC #### [facility] [address] [place] [address] Dr. Grzegorz Wang AST [Catalytic activity/Vol] 21 U/L Normal 15-37 [facility] Comment on above: Performed By: #### C BC #### [facility] [address] [place] [address] Dr. Grzegorz Wang Bilirubin [Mass/Vol] 0.5 mg/dL Normal 0.2-1.0 [facility] Comment on above: Performed By: #### C BC #### [facility] [address] [address] [address] Grzegorz Wang Calcium [Mass/Vol] 8.3 mg/dL Critically low 8.5-10.1 [facility] Comment on above: Performed By: #### C BC #### [facility] [address] [address] [address] Grzegorz Wang Chloride [Moles/Vol] 100 mmol/L Normal 98-107 [facility] Comment on above: Performed By: #### C BC #### [facility] [address] [address] [address] Grzegorz Wang CO2 [Moles/Vol] 25.6 mmol/L Normal 21.0-32.0 [facility] Comment on above: Performed By: #### C BC #### [facility] [address] [place] [address] Dr. Grzegorz Wang Creatinine [Mass/Vol] 1.39 mg/dL Critically high 0.55-1.02 [facility] Comment on above: Performed By: #### C BC #### [facility] [address] [address] [address] Grzegorz Wang EGFR-AF CAMBODIAN 45 mL/min/1.73m2 Critically low >=60 [facility] Comment on above: Performed By: #### C BC #### [facility] [address] [address] [address] Grzegorz Wang EGFR-NON AF CAMBODIAN 37 mL/min/1.73m2 Critically low >=60 [facility] Comment on above: Performed By: #### C BC #### [facility] [address] [address] [address] Grzegorz Wang Globulin (S) [Mass/Vol] 3.1 g/dL Normal [facility] Comment on above: Performed By: #### C BC #### [facility] [address] [address] [address] Grzegorz Wang Glucose [Mass/Vol] 96 mg/dL Normal 74-106 [facility] Comment on above: Performed By: #### C BC #### [facility] [address] [address] [address] Grzegorz Wang Potassium [Moles/Vol] 3.5 mmol/L Normal 3.5-5.1 [facility] Comment on above: Performed By: #### C BC #### [facility] [address] [address] [address] Grzegorz Wang Protein [Mass/Vol] 6.2 g/dL Critically low 6.4-8.2 [facility] Comment on above: Performed By: #### C BC #### [facility] [address] [address] [address] Grzegorz Wang Sodium [Moles/Vol] 134 mmol/L Critically low 136-145 [facility] Comment on above: Performed By: #### C BC #### [facility] [address] [place] [address] Dr. Grzegorz Wang Urea nitrogen [Mass/Vol] 33.0 mg/dL Critically high 7.0-18.0 [facility] Comment on above: Performed By: #### C BC #### [facility] [address] [address] [address] Grzegorz Wang Urea nitrogen/Creatinine [Mass ratio] 23.7 mg/mg Normal [facility] Comment on above: Performed By: #### C BC #### [facility] [address] [place] [address] Dr. Grzegorz Wang PROTIMEon 09-02-2021 INR Coag (PPP) [Relative time] {INR} Normal [facility] Comment on above: Performed By: #### A BRAYDEN LIPA #### [facility] [facility] [address] [place] [address] Dr. Grzegorz Wang INR GUIDELINES SEE BELOW Normal [facility] Comment on above: Result Comment: DENTON RED INR: 2.0 - 3.0 CONDITIONS NOT LISTED BELOW 2.5 - 3.5 FOR PROSTHETIC HEART VALVE REPLACEMENT 2.5 - 3.5 RECURRENT THROMBOSIS Performed By: #### A BRAYDEN LIPA #### [facility] [address] [place] [address] Dr. Grzegorz Wang PT Coag (PPP) [Time] 10.0 s Normal 9.0-11.6 [facility] Comment on above: Performed By: #### A PHIL OWEN #### [facility] [address] [place], [place] [address] Dr. Grzegorz Wang PTTon 09-02-2021 aPTT Coag (Bld) [Time] 32.1 s Normal 22.3-36.2 [facility] Comment on above: Performed By: #### A PHIL OWEN #### [facility] [address] [place], [place] [address] Dr. Grzegorz Wang XR CHEST 1 Von [...] 3V*on 022 XR hand RT min 3V* [facility] [employer] Other XR hand RT min 3V* [facility] [employer] Other XR hand RT min 3V* [address] [place] [address] [employer] Other XR hand RT min 3V* [place] [address] [employer] Other XR hand RT min 3V* XRay Report [employer] Other XR hand RT min 3V* Signed [employer] Other XR hand RT min 3V* Patient: Ozzie Gifford MR#: [id number] [employer] Other XR hand RT min 3V* [id number] [employer] Other XR hand RT min 3V* : 1950 Acct:[id number] [employer] Other XR hand RT min 3V* Age/Sex: 71 / F ADM Date: 08/02/21 [employer] Other XR hand RT min 3V* Loc: SOXD Room: Type : [facility] [employer] Other XR hand RT min 3V* Attending Dr: Neeraj Arrington MD [employer] Other XR hand RT min 3V* Copies to: Susie Arrington MD [employer] Other XR hand RT min 3V* Ordering Provider: Susie Arrington MD [employer] Other XR hand RT min 3V* Date of Service: 08/02/21 [employer] Other XR hand RT min 3V* XR/XR hand RT min 3V*: Closed nondisplaced fracture of proximal phalanx [employer] Other XR hand RT min 3V* of right mi [employer] Other XR hand RT min 3V* 4 viewsRIGHT hand plain film [employer] Other XR hand RT min 3V* COMPARISON:07/12/21 [employer] Other XR hand RT min 3V* HISTORY:Status post RIGHT long finger proximal phalanx fracture [employer] Other XR hand RT min 3V* No bony alignment stable. No interval healing. Extensive degeneration. [employer] Other XR hand RT min 3V* XR/XR hand RT min 3V* [employer] Other XR hand RT min 3V* IMPRESSION:Stable findings [employer] Other XR hand RT min 3V* Impression dictated by: Husam Martinez M.D.08/02/2021 12:13 PM [employer] Other XR hand RT min 3V* Dictation Location: RADIO-PC-11 [facility] [employer] Other XR hand RT min 3V* Transcribed By: PWS 08/02/21 [address] [place] [employer] Other XR hand RT min 3V* Dictated By: Husam Martinez DO 08/02/21 [address] [place] [employer] Other XR hand RT min 3V* Signed By: [employer] Other XR hand RT min 3V* 08/02/21 1213 [facility] [employer] Other BNPon 07-29-2021 Natriuretic peptide B (Bld) [Mass/Vol] 192.0 pg/mL Normal <=900.0 [facility] Comment on above: Performed By: #### E RUR #### [facility] [address] [place] [address] Dr. Grzegorz Wang CARDIAC BAMBI ADMITon 022 CK [Catalytic activity/Vol] 82 U/L Normal 26-192 [facility] Comment on above: Performed By: #### E RUR #### [facility] [address] [place] [address] Dr. Grzegorz Wang CK.MB [Mass/Vol] 2.40 ng/mL Normal <=3.60 [facility] Comment on above: Performed By: #### E RUR #### [facility] [address] [place] [address] Dr. Grzegorz Wang HSTROP 4.7 pg/mL Normal 4.0-51.3 [facility] Comment on above: Result Comment: CUT- OFF POINTS HAVE BEEN ESTABLISHED BASED ON THE FOURTH UNIVERSAL DEFINITIONS OF MYOCARDIAL INFARCTION. THE UPPER REFERENCE LIMIT (URL) OF TROPONIN, DEFINED THE 99TH PERCENTILE OF cTnI DISTRIBUTION IN A REFERENCE POPULATION, HAS BEEN CONFIRMED THE DECISION THRESHOLD FOR [place] DIAGNOSIS. Performed By: #### E RUR #### [facility] [address] [place] [address] Dr. Grzegorz Wang MITZI 70 ng/mL Normal 9-82 [facility] Comment on above: Performed By: #### E RUR #### [facility] [address] [place] [address] Dr. Grzegorz Wang CBC AUTO DIFFon 07-29-2021 BASO # 0.0 103/ul Normal 0.0-0.1 [facility] Comment on above: Performed By: #### E RUR #### [facility] [address] [place] [address] Dr. Grzegorz Wang Basophils/100 WBC (Bld) 0.7 % Normal 0.2-2.0 [facility] Comment on above: Performed By: #### E RUR #### [facility] [address] [place] [address] Dr. Grzegorz Wang EO # 0.2 103/ul Normal 0.0-0.7 [facility] Comment on above: Performed By: #### E RUR #### [facility] [address] [place] [address] Dr. Grzegorz Wang Eosinophils/100 WBC (Bld) 4.1 % Normal 0.9-7.0 [facility] Comment on above: Performed By: #### E RUR #### [facility] [address] [place] [address] Dr. Grzegorz Wang Erythrocyte distribution width (RBC) [Ratio] 15.7 % Critically high 11.0-15.0 [facility] Comment on above: Performed By: #### E RUR #### [facility] [address] [place] [address] Dr. Grzegorz Wang Hematocrit (Bld) [Volume fraction] 32.6 % Critically low 36.0-48.0 [facility] Comment on above: Performed By: #### E RUR #### [facility] [address] [place] [address] Dr. Grzegorz Wang Hemoglobin (Bld) [Mass/Vol] 9.9 g/dL Critically low 12.0-16.0 [facility] Comment on above: Performed By: #### E RUR #### [facility] [address] [place] [address] Dr. Grzegorz Wang IG # 0.02 10e3/ul Normal 0.00-0.03 [facility] Comment on above: Performed By: #### E RUR #### [facility] [address] [place] [address] Dr. Grzegorz Wang IG % 0.3 % Normal 0.0-0.5 [facility] Comment on above: Performed By: #### E RUR #### [facility] [address] [place] [address] Dr. Grzegorz Wang LYMPH # 1.7 103/ul Normal 1.2-3.8 [facility] Comment on above: Performed By: #### E RUR #### [facility] [address] [place] [address] Dr. Grzegorz Wang Lymphocytes/100 WBC (Bld) 28.0 % Normal 20.5-60.0 [facility] Comment on above: Performed By: #### E RUR #### [facility] [address] [place] [address] Dr. Grzegorz Wang MANUAL DIFF REQ NO Normal [facility] Comment on above: Performed By: #### E RUR #### [facility] [address] [place] [address] Dr. Grzegorz Wang MCH (RBC) [Entitic mass] 23.9 pg Critically low 26.7-34.0 [facility] Comment on above: Performed By: #### E RUR #### [facility] [address] [place] [address] Dr. Grzegorz Wang MCHC (RBC) [Mass/Vol] 30.4 g/dL Normal 29.9-35.2 [facility] Comment on above: Performed By: #### E RUR #### [facility] [address] [place] [address] Dr. Grzegorz Wang MCV (RBC) [Entitic vol] 78.7 fL Critically low 81.0-99. 0 [facility] Comment on above: Performed By: #### E RUR #### [facility] [address] [place] [address] Dr. Grzegorz Wang MONO # 0.6 103/ul Normal 0.3-0.8 [facility] Comment on above: Performed By: #### E RUR #### [facility] [address] [place] [address] Dr. Grzegorz Wang Monocytes/100 WBC (Bld) 10.4 % Normal 1.7-12.0 [facility] Comment on above: Performed By: #### E RUR #### [facility] [address] [place] [address] Dr. Grzegorz Wang NEUT # 3.3 103/ul Normal 1.4-6.5 [facility] Comment on above: Performed By: #### E RUR #### [facility] [address] [place] [address] Dr. Grzegorz Wang Neutrophils/100 WBC (Bld) 56.5 % Normal 43.0-75.0 [facility] Comment on above: Performed By: #### E RUR #### [facility] [address] [place] [address] Dr. Grzegorz Wang Platelet mean volume (Bld) [Entitic vol] 10.2 fL Normal 9.5-13.5 [facility] Comment on above: Performed By: #### E RUR #### [facility] [address] [place] [address] Dr. Grzegorz Wang PLT 216 103/ul Normal 150-450 [facility] Comment on above: Performed By: #### E RUR #### [facility] [address] [place] [address] Dr. Grzegorz Wang RBC 4.14 106/ul Critically low 4.20-5.40 [facility] Comment on above: Performed By: #### E RUR #### [facility] [address] [place] [address] Dr. Grzegorz Wang WBC 5.9 103/ul Normal 4.0-11.0 [facility] Comment on above: Performed By: #### E RUR #### [facility] [address] [place] [address] HEAD WO CONon [...] by: DORIAN GREENE Date: 2021-07-29 15:01 Normal [facility] ER URINE PROFILEon 2 Bilirubin Ql (U) Negative Normal NEGATIVE [facility] Comment on above: Performed By: #### E RUR #### [facility] [address] [place] [address] Dr. Grzegorz Wang Clarity (U) CLEAR Normal CLEAR [facility] Comment on above: Performed By: #### E RUR #### [facility] [address] [place] [address] Dr. Grzegorz Wang Color (U) LT. YELLOW Normal YELLOW [facility] Comment on above: Performed By: #### E RUR #### [facility] [address] [place] [address] Dr. Grzegorz Wang ERUDAVIDD A micrscopic examination will be performed if indicated. Normal [facility] Comment on above: Performed By: #### E RUR #### [facility] [address] [place] [address] Dr. Grzegorz Wang Glucose Ql (U) Negative Normal NEGATIVE [facility] Comment on above: Performed By: #### E RUR #### [facility] [address] [place] [address] Dr. Grzegorz Wang Hemoglobin Ql (U) Negative Normal NEGATIVE [facility] Comment on above: Performed By: #### E RUR #### [facility] [address] [place] [address] Dr. Grzegorz Wang Ketones Ql (U) Negative Normal NEGATIVE [facility] Comment on above: Performed By: #### E RUR #### [facility] [address] [place] [address] Dr. Grzegorz Wang LEUKOCYTES Negative Normal NEGATIVE [facility] Comment on above: Performed By: #### E RUR #### [facility] [address] [place] [address] Dr. Grzegorz Wang Nitrite Ql (U) Negative Normal NEGATIVE [facility] Comment on above: Performed By: #### E RUR #### [facility] [address] [place] [address] Dr. Grzegorz Wang pH (U) 5.5 [pH] Normal 5-9 [facility] Comment on above: Performed By: #### E RUR #### [facility] [address] [place] [address] Dr. Grzegorz Wang SPEC GRAVITY 1.010 Normal 1.005-<=1.0 25 [facility] Comment on above: Performed By: #### E RUR #### [facility] [address] [place] [address] Dr. Grzegorz Wang UA PROTEIN Negative Normal NEGATIVE/ TRACE [facility] Comment on above: Performed By: #### E RUR #### [facility] [address] [place] [address] Dr. Grzegorz Wang UR MICRO IND NOT INDICATED Normal [facility] Comment on above: Performed By: #### E RUR #### [facility] [address] [place] [address] Dr. Grzegorz Wang Urobilinogen Qn (U) 0.2 {Lidya'U}/dL Normal 0.2 - 1. 0 [facility] Comment on above: Performed By: #### E RUR #### [facility] [address] [place] [address] Dr. Grzegorz Wang PROF 14(COMP METB)on 022 Albumin [Mass/Vol] 3.1 g/dL Critically low 3.4-5.0 [facility] Comment on above: Performed By: #### E RUR #### [facility] [address] [place] [address] Dr. Grzegorz Wang Albumin/Globulin [Mass ratio] 1.0 {ratio} Normal [facility] Comment on above: Performed By: #### E RUR #### [facility] [address] [place] [address] [address] Grzegorz Wang ALP [Catalytic activity/Vol] 99 U/L Normal 46-116 [facility] Comment on above: Performed By: #### E RUR #### [facility] [address] [place] [address] [address] Grzegorz Wang ALT [Catalytic activity/Vol] 18 U/L Normal 14-59 [facility] Comment on above: Performed By: #### E RUR #### [facility] [address] [place] [address] [address] Grzegorz Wang Anion gap [Moles/Vol] 10.5 mmol/L Normal [facility] Comment on above: Performed By: #### E RUR #### [facility] [address] [place] [address] Dr. Grzegorz Wang AST [Catalytic activity/Vol] 14 U/L Critically low 15-37 [facility] Comment on above: Performed By: #### E RUR #### [facility] [address] [place] [place] [address] [address] Grzegorz Wang Bilirubin [Mass/Vol] 0.3 mg/dL Normal 0.2-1.0 [facility] Comment on above: Performed By: #### E RUR #### [facility] [address] [place] [place] [address] [address] Grzegorz Wang Calcium [Mass/Vol] 8.5 mg/dL Normal 8.5-10.1 [facility] Comment on above: Performed By: #### E RUR #### [facility] [address] [place] [place] [address] [address] Grzegorz Wang Chloride [Moles/Vol] 108 mmol/L Critically high 98-107 [facility] Comment on above: Performed By: #### E RUR #### [facility] [address] [place] [place] [address] [address] Grzegorz Wang CO2 [Moles/Vol] 26.0 mmol/L Normal 21.0-32.0 [facility] Comment on above: Performed By: #### E RUR #### [facility] [address] [place] [place] [address] [address] Grzegorz Wang Creatinine [Mass/Vol] 1.07 mg/dL Critically high 0.55-1.02 [facility] Comment on above: Performed By: #### E RUR #### [facility] [address] [place] [place] [address] [address] Grzegorz Wang EGFR-AF CAMBODIAN >60 Normal >=60 [facility] Comment on above: Performed By: #### E RUR #### [facility] [address] [place] [place] [address] [address] Grzegorz Wang EGFR-NON AF CAMBODIAN 50 mL/min/1.73m2 Critically low >=60 [facility] Comment on above: Performed By: #### E RUR #### [facility] [address] [place] [place] [address] [address] Grzegorz Wang Globulin (S) [Mass/Vol] 3.0 g/dL Normal [facility] Comment on above: Performed By: #### E RUR #### [facility] [address] [place] [address] [address] Grzegorz Wang Glucose [Mass/Vol] 87 mg/dL Normal 74-106 [facility] Comment on above: Performed By: #### E RUR #### [facility] [address] [place] [address] [address] Grzegorz Wang Potassium [Moles/Vol] 3.5 mmol/L Normal 3.5-5.1 [facility] Comment on above: Performed By: #### E RUR #### [facility] [address] [place] [address] [address] Grzegorz Wang Protein [Mass/Vol] 6.1 g/dL Critically low 6.4-8.2 [facility] Comment on above: Performed By: #### E RUR #### [facility] [address] [place] [address] [address] Grzegorz Wang Sodium [Moles/Vol] 141 mmol/L Normal 136-145 [facility] Comment on above: Performed By: #### E RUR #### [facility] [address] [place] [address] Dr. Grzegorz Wang Urea nitrogen [Mass/Vol] 22.0 mg/dL Critically high 7.0-18.0 [facility] Comment on above: Performed By: #### E RUR #### [facility] [address] [place] [address] Dr. Grzegorz Wang Urea nitrogen/Creatinine [Mass ratio] 20.6 mg/mg Normal [facility] Comment on above: Performed By: #### E RUR #### [facility] [address] [place] [address] Dr. Grzegorz Wang PROTIMEon 07-29-2021 INR Coag (PPP) [Relative time] 0.99 {INR} Normal [facility] Comment on above: Performed By: #### P TT, PT #### [facility] [address] [place] [address] Dr. Grzegorz Wang INR GUIDELINES SEE BELOW Normal [facility] Comment on above: Result Comment: DENTON RED INR: 2.0 - 3.0 CONDITIONS NOT LISTED BELOW 2.5 - 3.5 FOR PROSTHETIC HEART VALVE REPLACEMENT 2.5 - 3.5 RECURRENT THROMBOSIS Performed By: #### P TT, PT #### [facility] [address] [place] [address] Dr. Grzegorz Wang PT Coag (PPP) [Time] 10.7 s Normal 9.0-11.6 [facility] Comment on above: Performed By: #### P TT, PT #### [facility] [address] [place] [address] Dr. Grzegorz Wang PTTon 07-29-2021 aPTT Coag (Bld) [Time] 31.0 s Normal 22.3-36.2 [facility] Comment on above: Performed By: #### P TT, PT #### [facility] [address] [place] [address] Dr. Grzegorz Wang XR CHEST 1 Von [...] 3V*on 022 XR hand RT min 3V* [facility] [employer] Other XR hand RT min 3V* [facility] [employer] Other XR hand RT min 3V* [address] [place] [address] [employer] Other XR hand RT min 3V* [place] [address] [employer] Other XR hand RT min 3V* XRay Report [employer] Other XR hand RT min 3V* Signed [employer] Other XR hand RT min 3V* Patient: Ozzie Gifford MR#: [id number] [employer] Other XR hand RT min 3V* [address] [employer] Other XR hand RT min 3V* : 1950 Acct:[id number] [employer] Other XR hand RT min 3V* Age/Sex: 71 / F ADM Date: 07/12/21 [employer] Other XR hand RT min 3V* Loc: SOXD Room: Type : [facility] [employer] Other XR hand RT min 3V* Attending Dr: Neeraj Arrington MD [employer] Other XR hand RT min 3V* Ordering Provider: Susie Arrington MD [employer] Other XR hand RT min 3V* Date of Service: 07/12/21 [employer] Other XR hand RT min 3V* XR/XR hand RT min 3V*: Right hand pain [employer] Other XR hand RT min 3V* Copies to: Susie Arrington MD [employer] Other XR hand RT min 3V* XR hand RT min 3V* 07/12/2021 10:43 AM [employer] Other XR hand RT min 3V* SIGNS AND SYMPTOMS: Fall, pain in right hand greatest in the right thumb with swelling [employer] Other XR hand RT min 3V* PROTOCOL: Frontal, lateral, and oblique radiographs of the right hand [employer] Other XR hand RT min 3V* COMPARISON: None [employer] Other XR hand RT min 3V* FINDINGS: [employer] Other XR hand RT min 3V* There is mild narrowing of the distal interphalangeal joints. There is a mild flexion deformity of [employer] Other XR hand RT min 3V* the fifth proximal interphalangeal joint. There is mild narrowing of the first metacarpophalangeal [employer] Other XR hand RT min 3V* junction with mild t o moderate degenerative change at the first carpometacarpal joint. There is no [employer] Other XR hand RT min 3V* evidence of acute displaced fracture. No evidence of dislocation. [employer] Other XR hand RT min 3V* XR/XR hand RT min 3V* [employer] Other XR hand RT min 3V* IMPRESSION: [employer] Other XR hand RT min 3V* No evidence of fracture. [employer] Other XR hand RT min 3V* Degenerative changes are noted, greatest in the thumb. [employer] Other XR hand RT min 3V* There is a mild flexion deformity of the fifth proximal interphalangeal joint. [employer] Other XR hand RT min 3V* Impression dictated by: Bambi Sung M.D.07/12/2021 12:29 PM [employer] Other XR hand RT min 3V* Dictation Location: [place] [address] [employer] Other XR hand RT min 3V* Transcribed By: SHYANN 07/12/21 122 [employer] Other XR hand RT min 3V* Dictated By: Bambi Sung II, MD 07/12/21 1228 [employer] Other XR hand RT min 3V* Signed By: [employer] Other XR hand RT min 3V* 07/12/[address] [place] [address] [employer] Other CBC AUTO DIFFon 05-08-2021 BASO # 0.1 103/ul Normal 0.0-0.1 [facility] Comment on above: Performed By: #### C BC #### [facility] [address] [place] [address] Dr. Grzegorz Wang Basophils/100 WBC (Bld) 0.8 % Normal 0.2-2.0 [facility] Comment on above: Performed By: #### C BC #### [facility] [address] [place] [address] [address] Grzegorz Wang EO # 0.3 103/ul Normal 0.0-0.7 [facility] Comment on above: Performed By: #### C BC #### [facility] [address] [place] [address] [address] Grzegorz Wang Eosinophils/100 WBC (Bld) 3.8 % Normal 0.9-7.0 [facility] Comment on above: Performed By: #### C BC #### [facility] [address] [place] [address] Dr. Grzegorz Wang Erythrocyte distribution width (RBC) [Ratio] 14.1 % Normal 11.0-15.0 [facility] Comment on above: Performed By: #### C BC #### [facility] [address] [place] [address] Dr. Grzegorz Wang Hematocrit (Bld) [Volume fraction] 34.4 % Critically low 36.0-48.0 [facility] Comment on above: Performed By: #### C BC #### [facility] [address] [place] [address] Dr. Grzegorz Wang Hemoglobin (Bld) [Mass/Vol] 10.4 g/dL Critically low 12.0-16.0 [facility] Comment on above: Performed By: #### C BC #### [facility] [address] [place] [address] Dr. Grzegorz Wang IG # 0.04 10e3/ul Critically high 0.00-0.03 [facility] Comment on above: Performed By: #### C BC #### [facility] [address] [place] [address] Dr. Grzegorz Wang IG % 0.5 % Normal 0.0-0.5 [facility] Comment on above: Performed By: #### C BC #### [facility] [address] [place] [address] Dr. Grzegorz Wang LYMPH # 1.7 103/ul Normal 1.2-3.8 [facility] Comment on above: Performed By: #### C BC #### [facility] [address] [place] [address] Dr. Grzegorz Wang Lymphocytes/100 WBC (Bld) 22.1 % Normal 20.5-60.0 [facility] Comment on above: Performed By: #### C BC #### [facility] [address] [place] [address] Dr. Grzegorz Wang MANUAL DIFF REQ NO Normal [facility] Comment on above: Performed By: #### C BC #### [facility] [address] [place] [address] Dr. Grzegorz Wang MCH (RBC) [Entitic mass] 25.6 pg Critically low 26.7-34.0 [facility] Comment on above: Performed By: #### C BC #### [facility] [address] [place] [address] Dr. Grzegorz Wang MCHC (RBC) [Mass/Vol] 30.2 g/dL Normal 29.9-35.2 [facility] Comment on above: Performed By: #### C BC #### [facility] [address] [place] [address] Dr. Grzegorz Wang MCV (RBC) [Entitic vol] 84.5 fL Normal 81.0-99.0 [facility] Comment on above: Performed By: #### C BC #### [facility] [address] [place] [address] Dr. Grzegorz Wang MONO # 0.8 103/ul Normal 0.3-0.8 [facility] Comment on above: Performed By: #### C BC #### [facility] [address] [place] [address] Dr. Grzegorz Wang Monocytes/100 WBC (Bld) 11.1 % Normal 1.7-12.0 [facility] Comment on above: Performed By: #### C BC #### [facility] [address] [place] [address] Dr. Grzegorz Wang NEUT # 4.7 103/ul Normal 1.4-6.5 [facility] Comment on above: Performed By: #### C BC #### [facility] [address] [place] [address] Dr. Grzegorz Wang Neutrophils/100 WBC (Bld) 61.7 % Normal 43.0-75.0 [facility] Comment on above: Performed By: #### C BC #### [facility] [address] [place] [address] Dr. Grzegorz Wang Platelet mean volume (Bld) [Entitic vol] 10.6 fL Normal 9.5-13.5 [facility] Comment on above: Performed By: #### C BC #### [facility] [address] [place], [place] [address] Dr. Grzegorz Wang PLT 281 103/ul Normal 150-450 [facility] Comment on above: Performed By: #### C BC #### [facility] [address] [place], [place] [address] Dr. Grzegorz Wang RBC 4.07 106/ul Critically low 4.20-5.40 [facility] Comment on above: Performed By: #### C BC #### [facility] [address] [place], [place] [address] Dr. Grzegorz Wang WBC 7.6 103/ul Normal 4.0-11.0 [facility] Comment on above: Performed By: #### C BC #### [facility] [address], [place] [address] CHEST WO CONon [...] LUCI MARADIAGA Date: 2021-05-08 18:59 Normal [facility] CT HEAD WO CONon 05-08-2021 CT [...] MITZI LOWRY Date: 2021-05-08 17:27 Normal [facility] CT NECK ST WO CONon 05-09-19 [...] The parotid glands, parapharyngeal spaces and left mop worker spaces appear normal. A tiny amount of air in the venous system in the right parapharyngeal space and in the venous system of the right mop worker space. A tiny amount air in probably [...] space and venous system in the right mop worker space, likely iatrogenic. No abnormal fluid collection. Prior right carotid endarterectomy. 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 Electronically authenticated by: BASIM CABAN Date: 2021-05-08 19:23 Normal [facility] PROF CHEM 8 (BAS METB)on Anion gap [Moles/Vol] 12.3 mmol/L Normal [facility] Comment on above: Performed By: #### A BRAYDEN LIPA #### [facility] [address] [place] [address] [address] Grzegorz Wang Calcium [Mass/Vol] 8.4 mg/dL Critically low 8.5-10.1 [facility] Comment on above: Performed By: #### A BRAYDEN LIPA #### [facility] [address] [address] [address] Grzegorz Wang Chloride [Moles/Vol] 108 mmol/L Critically high 98-107 [facility] Comment on above: Performed By: #### A BRAYDEN, LIPA #### [facility] [address] [address] [address] Grzegorz Wang CO2 [Moles/Vol] 25.9 mmol/L Normal 22.0-30.0 [facility] Comment on above: Performed By: #### A BRAYDEN, LIPA #### [facility] [address] [address] [address] Grzegorz Wang Creatinine [Mass/Vol] 1.18 mg/dL Critically high 0.52-1.04 [facility] Comment on above: Performed By: #### A MY, LIPA #### [facility] [address] [address] [address] Grzegorz Wang EGFR-AF CAMBODIAN 55 mL/min/1.73m2 Critically low >=60 [facility] Comment on above: Performed By: #### A MY, LIPA #### [facility] [address] [address] [address] Grzegorz Wang EGFR-NON AF CAMBODIAN 45 mL/min/1.73m2 Critically low >=60 [facility] Comment on above: Performed By: #### A MY, LIPA #### [facility] [address] [place] [address] Dr. Grzegorz Wang Glucose [Mass/Vol] 84 mg/dL Normal 74-106 [facility] Comment on above: Performed By: #### A BRAYDEN, LIPA #### [facility] [address] [place] [address] Dr. Grzegorz Wang Potassium [Moles/Vol] 3.2 mmol/L Critically low 3.4-5.0 [facility] Comment on above: Performed By: #### A BRAYDEN, LIPA #### [facility] [address] [place] [address] Dr. Grzegorz Wang Sodium [Moles/Vol] 143 mmol/L Normal 137-145 [facility] Comment on above: Performed By: #### A BRAYDEN, LIPA #### [facility] [address] [place] [address] Dr. Grzegorz Wang Urea nitrogen [Mass/Vol] 35.0 mg/dL Critically high 7.0-18.0 [facility] Comment on above: Performed By: #### A MY, LIPA #### [facility] [address] [place] [address] Dr. Grzegorz Wang Urea nitrogen/Creatinine [Mass ratio] 29.7 mg/mg Normal [facility] Comment on above: Performed By: #### A MY, LIPA #### [facility] [address] [place] [address] Dr. Grzegorz Wang XR PELVIS 1_2 VIEWSon [...] by: LUCI MARADIAGA Date: 2021-05-08 17:24 Normal [facility] XR wrist LT min 3V*on 2021 XR wrist LT min 3V* [facility] [employer] Other XR wrist LT min 3V* [facility] [employer] Other XR wrist LT min 3V* [address] [place] [address] [employer] Other XR wrist LT min 3V* [place] [address] [employer] Other XR wrist LT min 3V* XRay Report Nort [employer] Other XR wrist LT min 3V* Signed [employer] Other XR wrist LT min 3V* Patient: Ozzie Gifford MR#: [id number] [place] [employer] Other XR wrist LT min 3V* [address] [employer] Other XR wrist LT min 3V* : 1950 Acct:[id number] [employer] Other XR wrist LT min 3V* Age/Sex: 70 / F ADM Date: 05/03/21 [employer] Other XR wrist LT min 3V* Loc: SOXD Room: Type : [facility] [employer] Other XR wrist LT min 3V* Attending Dr: Neeraj Arrington MD [employer] Other XR wrist LT min 3V* Ordering Provider: Susie Arrington MD [employer] Other XR wrist LT min 3V* Date of Service: 05/03/21 [employer] Other XR wrist LT min 3V* XR/XR wrist LT min 3V*: Other specified postprocedural states [employer] Other XR wrist LT min 3V* Copies to: Susie Arrington MD [employer] Other XR wrist LT min 3V* 4 viewsLEFT wrist plain film [employer] Other XR wrist LT min 3V* COMPARISON:03/31/21 [employer] Other XR wrist LT min 3V* HISTORY:Status post ORIF distal radius fracture [employer] Other XR wrist LT min 3V* No hardware failure. Adequate bony alignment. Healing distal radius fracture noted. [employer] Other XR wrist LT min 3V* XR/XR wrist LT min 3V* [employer] Other XR wrist LT min 3V* IMPRESSION:Healing distal radius fracture. No hardware failure. [employer] Other XR wrist LT min 3V* Impression dictated by: Husam Martinez M.D.05/03/2021 2:12 PM [employer] Other XR wrist LT min 3V* Dictation Location: [place] [address] [employer] Other XR wrist LT min 3V* Transcribed By: SHYANN 05/03/21 141 [employer] Other XR wrist LT min 3V* Dictated By: Husam Martinez DO 05/03/21 1411 [employer] Other XR wrist LT min 3V* Signed By: [employer] Other XR wrist LT min 3V* 05/03/21 1412 No rt [employer] Other XR FOREARM LT 2 VIEWSon 03-14 [...] by: MARYSE LANGFORD Date: 2021-03-30 20:17 Normal [facility] Cardiovascular Lab Reporton 03-03-2020 Cardiovascular Lab Report [facility] Patient Name: [facility] Ozzie MR #: [id number] Department of Physician: Donna Henderson M.D. Division of Service Date: 03/03/2020 Cardiology Birthdate: 1950 Adult Cardiovascular Room #: [address] [place] [address] Cardiovascular Laboratory Report FINAL IMPRESSION: 1. Moderate [...] femoral vein and artery was obtained. A 6-[place] Citizen 11 cm sheath was inserted in each. Difficulty exchanging the micropuncture kit for a 6-[place] Citizen sheath encountered for the arterial access site; [...] physiological assessment of the coronary lesions. A 6-[place] Citizen XB 3.5 guide catheter was advanced over [...] trauma. The guide catheter was removed. A 5-[place] Citizen JR4 guide catheter was advanced in and [...] Doty M.D. Date Trans: 03/03/2020 12:28 P/mmo [id number] cc: Nicolas Carrillo M.D. Heart Failure/ Transplant Mail[facility] [address] [facility] [address], PROFESSOR OF SPANISH [address] Andreia [facility] [address] [facility] [address] Normal [facility] Vital Signs Date Time Vital Sign Value Performing Clinician Facility 08-21-2023 13:01-0400 Blood Pressure Location JALEN DENTON [facility] 08-21-2023 13:01-0400 Diastolic blood pressure 68 mm[Hg] JALEN DENTON [facility] 08-21-2023 13:01-0400 Heart rate 62 /min JALEN DENTON [facility] 08-21-2023 13:01-0400 Respiratory rate 19 /min JALEN DENTON [facility] 08-21-2023 13:01-0400 Systolic blood pressure 130 mm[Hg] JALEN DENTON [facility] 08-08-2023 09:52-0400 Body height 154.94 cm MD Shaikh Day Work Phone: [facility] 08-08-2023 09:52-0400 Body mass index (BMI) [Ratio] 23.7 kg/m2 MD Shaikh Day Work Phone: [facility] 08-08-2023 09:52-0400 Body temperature 97.8 [degF] MD Shaikh Day Work Phone: [facility] 08-08-2023 09:52-0400 Body weight 57 kg MD Shaikh Day Work Phone: [facility] 08-08-2023 09:52-0400 Diastolic blood pressure 82 mm[Hg] MD Shaikh Day Work Phone: [facility] 08-08-2023 09:52-0400 Heart rate 78 /min MD Shaikh Day Work Phone: [facility] 08-08-2023 09:52-0400 Respiratory rate 16 /min MD Shaikh Day Work Phone: [facility] 08-08-2023 09:52-0400 SaO2% (BldA) [Mass fraction] 98 % MD Shaikh Day Work Phone: [facility] 08-08-2023 09:52-0400 Systolic blood pressure 124 mm[Hg] MD Shaikh Day Work Phone: [facility] 07-15-2023 12:39-0400 Blood Pressure Location Carmen Orzech [facility] 07-15-2023 12:39-0400 Body temperature 97.88 [degF] Carmen Orzech [facility] 07-15-2023 12:39-0400 Diastolic blood pressure 84 mm[Hg] Carmen Orzech [facility] 07-15-2023 12:39-0400 Heart rate 78 /min Carmen Orzech [facility] 07-15-2023 12:39-0400 Systolic blood pressure 124 mm[Hg] Carmen Orzech [facility] 05-11-2023 11:10-0400 Body height 154.94 cm MD Shaikh Day Work Phone: [facility] 05-11-2023 11:10-0400 Body mass index (BMI) [Ratio] 23.8 kg/m2 MD Shaikh Day Work Phone: [facility] 05-11-2023 11:10-0400 Body temperature 97.2 [degF] MD Shaikh Day Work Phone: [facility] 05-11-2023 11:10-0400 Body weight 57.15 kg MD Shaikh Day Work Phone: [facility] 05-11-2023 11:10-0400 Diastolic blood pressure 58 mm[Hg] MD Shaikh Day Work Phone: [facility] 05-11-2023 11:10-0400 Heart rate 58 /min MD Shaikh Day Work Phone: [facility] 05-11-2023 11:10-0400 Respiratory rate 16 /min MD Shaikh Day Work Phone: [facility] 05-11-2023 11:10-0400 SaO2% (BldA) [Mass fraction] 98 % MD Shaikh Day Work Phone: [facility] 05-11-2023 11:10-0400 Systolic blood pressure 106 mm[Hg] MD Shaikh Day Work Phone: [facility] 05-09-2023 09:49-0400 Body height 154.94 cm MD Shaikh Day Work Phone: [facility] 05-09-2023 09:49-0400 Body mass index (BMI) [Ratio] 23.8 kg/m2 MD Shaikh Day Work Phone: [facility] 05-09-2023 09:49-0400 Body temperature 97.6 [degF] MD Shaikh Day Work Phone: [facility] 05-09-2023 09:49-0400 Body weight 57.15 kg MD Shaikh Day Work Phone: [facility] 05-09-2023 09:49-0400 Diastolic blood pressure 70 mm[Hg] MD Shaikh Day Work Phone: [facility] 05-09-2023 09:49-0400 Heart rate 73 /min MD Shaikh Day Work Phone: [facility] 05-09-2023 09:49-0400 SaO2% (BldA) [Mass fraction] 97 % MD Shaikh Day Work Phone: [facility] 05-09-2023 09:49-0400 Systolic blood pressure 138 mm[Hg] MD Shaikh Day Work Phone: [facility] 04-13-2023 15:15-0500 Body temperature 98 [degF] MD Shaikh Day Work Phone: [facility] 04-13-2023 15:15-0500 Diastolic blood pressure 56 mm[Hg] MD Shaikh Day Work Phone: [facility] 04-13-2023 15:15-0500 Heart rate 76 /min MD Shaikh Day Work Phone: [facility] 04-13-2023 15:15-0500 Respiratory rate 17 /min MD Shaikh Day Work Phone: [facility] 04-13-2023 15:15-0500 SaO2% (BldA) [Mass fraction] 95 % MD Shaikh Day Work Phone: [facility] 04-13-2023 15:15-0500 Systolic blood pressure 100 mm[Hg] MD Shaikh Day Work Phone: [facility] 04-13-2023 04:48-0500 Body weight 62.9 kg MD Shaikh Day Work Phone: [facility] 04-12-2023 13:07-0500 Body height 154.94 cm MD Shaikh Day Work Phone: [facility] 04-12-2023 11:49-0500 Inhaled oxygen flow rate 8 L/min MD Shaikh Day Work Phone: [facility] 04-12-2023 10:02-0500 Body mass index (BMI) [Ratio] 25.9 kg/m2 MD Shaikh Day Work Phone: [facility] 04-09-2023 09:48-0500 Body height 154.94 cm MD Shaikh Day Work Phone: [facility] 04-09-2023 09:48-0500 Body mass index (BMI) [Ratio] 29 kg/m2 MD Shaikh Day Work Phone: [facility] 04-09-2023 09:48-0500 Body temperature 97.6 [degF] MD Shaikh Day Work Phone: [facility] 04-09-2023 09:48-0500 Body weight 69.85 kg MD Shaikh Day Work Phone: [facility] 04-09-2023 09:48-0500 Diastolic blood pressure 66 mm[Hg] MD Shaikh Day Work Phone: [facility] 04-09-2023 09:48-0500 Heart rate 76 /min MD Shaikh Day Work Phone: [facility] 04-09-2023 09:48-0500 Respiratory rate 16 /min MD Shaikh Day Work Phone: [facility] 04-09-2023 09:48-0500 SaO2% (BldA) [Mass fraction] 98 % MD Shaikh Day Work Phone: [facility] 04-09-2023 09:48-0500 Systolic blood pressure 114 mm[Hg] MD Shaikh Day Work Phone: [facility] 03-20-2023 12:52-0500 Body height 152.4 cm Georges Garcia MD Work Phone: [facility] 03-20-2023 12:52-0500 Body mass index (BMI) [Ratio] 26.95 kg/m2 Georges Garcia MD Work Phone: [facility] [employer] [facility] 03-20-2023 12:52-0500 Body weight 62.6 kg Georges Garcia MD Work Phone: [facility] [employer] [facility] 03-20-2023 12:52-0500 Diastolic blood pressure 65 mm[Hg] Georges Garcia MD Work Phone: [facility] [employer] [facility] 03-20-2023 12:52-0500 Heart rate 67 /min Georges Garcia MD Work Phone: [facility] 03-20-2023 12:52-0500 Systolic blood pressure 144 mm[Hg] Georges Garcia MD Work Phone: [facility] [employer] [facility] 03-07-2023 10:48-0500 Blood Pressure [facility] 03-07-2023 10:48-0500 Diastolic blood pressure 80 mm[Hg] Carmen Orzech [facility] 03-07-2023 10:48-0500 Heart rate 80 /min Carmen Orzech [facility] 03-07-2023 10:48-0500 Systolic blood pressure 118 mm[Hg] Carmen Orzech [facility] 12-26-2022 12:10-0500 Diastolic blood pressure 70 mm[Hg] MD Shaikh Day Work Phone: [facility] 12-26-2022 12:10-0500 Systolic blood pressure 144 mm[Hg] MD Shaikh Day Work Phone: [facility] 10-16-2022 14:10-0400 Body height 154.94 cm Kori Temple Other [facility] [employer] Other 10-16-2022 14:10-0400 Body mass index (BMI) [Ratio] 26.53 kg/m2 Kori Temple Other [facility] [employer] Other 10-16-2022 14:10-0400 Body temperature 98.1 [degF] Kori Temple Other [facility] [employer] Other 10-16-2022 14:10-0400 Body weight 63.69 kg Kori Temple Other [employer] Other 10-16-2022 14:10-0400 Diastolic blood pressure 81 mm[Hg] Kori Temple Other [place] [employer] Other 10-16-2022 14:10-0400 Respiratory rate 18 /min Kori Treviñoley Other [employer] Other 10-16-2022 14:10-0400 SaO2% (BldA) [Mass fraction] 98 % Kori Treviñoley Other [employer] Other 10-16-2022 14:10-0400 Systolic blood pressure 139 mm[Hg] Kori Treviñoley Other [employer] Other 04-04-2022 09:30-0500 Body height 154.94 cm Denver Juarez Other [employer] Other 04-04-2022 09:30-0500 Body mass index (BMI) [Ratio] 28.72 kg/m2 Denver Juarez Other [employer] Other 04-04-2022 09:30-0500 Body temperature 97.8 [degF] Denver Juarez Other [employer] Other 04-04-2022 09:30-0500 Body weight 68.95 kg Denver Juarez Other [employer] Other 04-04-2022 09:30-0500 Diastolic blood pressure 72 mm[Hg] Denver Juarez Other [employer] Other 04-04-2022 09:30-0500 SaO2% (BldA) [Mass fraction] 98 % Denver Juarez Other [employer] Other 04-04-2022 09:30-0500 Systolic blood pressure 116 mm[Hg] Denver Juarez Other [employer] Other 11-22-2021 12:12-0400 Body temperature 97.9 [degF] MD Shaikh Day Work Phone: [facility] 11-22-2021 12:12-0400 Diastolic blood pressure 82 mm[Hg] MD Shaikh Day Work Phone: [facility] 11-22-2021 12:12-0400 Heart rate 95 /min MD Shaikh Day Work Phone: [facility] 11-22-2021 12:12-0400 Respiratory rate 16 /min MD Shaikh Day Work Phone: [facility] 11-22-2021 12:12-0400 SaO2% (BldA) [Mass fraction] 98 % MD Shaikh Day Work Phone: [facility] 11-22-2021 12:12-0400 Systolic blood pressure 151 mm[Hg] MD Shaikh Day Work Phone: [facility] 11-22-2021 04:04-0400 Body weight 78.6 kg MD Shaikh Day Work Phone: [facility] 11-21-2021 17:12-0400 Body height 157.48 cm MD Shaikh Day Work Phone: [facility] 11-21-2021 13:57-0400 Diastolic blood pressure 56 mm[Hg] MD Shaikh Day Work Phone: [facility] 11-21-2021 13:57-0400 Heart rate 77 /min MD Shaikh Day Work Phone: [facility] 11-21-2021 13:57-0400 Respiratory rate 16 /min MD Shaikh Day Work Phone: [facility] 11-21-2021 13:57-0400 SaO2% (BldA) [Mass fraction] 95 % MD Shaikh Day Work Phone: [facility] 11-21-2021 13:57-0400 Systolic blood pressure 117 mm[Hg] MD Shaikh Day Work Phone: [facility] 11-21-2021 11:24-0400 Body temperature 96.9 [degF] MD Shaikh Day Work Phone: [facility] 11-21-2021 03:56-0400 Body height 157.48 cm MD Shaikh Day Work Phone: [facility] 11-21-2021 03:56-0400 Body weight 75.9 kg MD Shaikh Day Work Phone: [facility] 09-27-2021 10:15-0400 Body height 154.94 cm Denver Juarez Other [employer] Other 09-27-2021 10:15-0400 Body mass index (BMI) [Ratio] 35.9 kg/m2 Denver Juarez Other [employer] Other 09-27-2021 10:15-0400 Body temperature 96.2 [degF] Denver Juarez Other [employer] Other 09-27-2021 10:15-0400 Body weight 86.18 kg Denver Juarez Other [employer] Other 09-27-2021 10:15-0400 Diastolic blood pressure 52 mm[Hg] Denver Juarez Other [employer] Other 09-27-2021 10:15-0400 SaO2% (BldA) [Mass fraction] 97 % Denver Millernorah Other [employer] Other 09-27-2021 10:15-0400 Systolic blood pressure 110 mm[Hg] Denver Millernorah Other [employer] Other 09-22-2021 14:15-0400 Body height 154.94 cm Ilda Das Other [employer] Other 09-22-2021 14:15-0400 Body mass index (BMI) [Ratio] 35.9 kg/m2 Ilda Das Other [employer] Other 09-22-2021 14:15-0400 Body temperature 98.2 [degF] Ilda Das Other [employer] Other 09-22-2021 14:15-0400 Body weight 86.18 kg Ilda Das Other [employer] Other 09-22-2021 14:15-0400 Respiratory rate 18 /min Ilda Das Other [employer] Other 09-22-2021 14:15-0400 SaO2% (BldA) [Mass fraction] 98 % Ilda Das Other [employer] Other 09-20-2021 17:00-0400 Body height 154.94 cm Susie Rosaliachetan Other [employer] Other 09-20-2021 17:00-0400 Body mass index (BMI) [Ratio] 35.9 kg/m2 Susiejennifer Arrington Other [employer] Other 09-20-2021 17:00-0400 Body weight 86.18 kg Susie Arrington Other [employer] Other 05-03-2021 11:45-0400 Body height 154.94 cm Susie Arrington Other [employer] Other 05-03-2021 11:45-0400 Body mass index (BMI) [Ratio] 35.9 kg/m2 Susie Arrington Other [employer] Other 05-03-2021 11:45-0400 Body weight 86.18 kg Susie Arrington Other [employer] Other 03-02-2021 10:00-0500 Body height 154.94 cm Denver Juarez Other [employer] Other 03-02-2021 10:00-0500 Body mass index (BMI) [Ratio] 36.27 kg/m2 Denver Juarez Other [employer] Other 03-02-2021 10:00-0500 Body temperature 96.5 [degF] Denver Juarez Other [employer] Other 03-02-2021 10:00-0500 Body weight 87.09 kg Denver Juarez Other [employer] Other 03-02-2021 10:00-0500 Diastolic blood pressure 58 mm[Hg] Denver Juarez Other [employer] Other 03-02-2021 10:00-0500 SaO2% (BldA) [Mass fraction] 99 % Denver Juarez Other [employer] Other 03-02-2021 10:00-0500 Systolic blood pressure 108 mm[Hg] Denver Juarez Other [employer] Other 12-01-2020 10:00-0400 Body height 154.94 cm Denver Larry Other [employer] Other 12-01-2020 10:00-0400 Body mass index (BMI) [Ratio] 36.27 kg/m2 Denver Larry Other [employer] Other 12-01-2020 10:00-0400 Body weight 87.09 kg Denver Larry Other [employer] Other 12-01-2020 10:00-0400 Diastolic blood pressure 79 mm[Hg] Denver Juarez Other [employer] Other 12-01-2020 10:00-0400 Systolic blood pressure 149 mm[Hg] Denver Larry Other [employer] Other 11-10-2020 10:30-0400 Body height 154.94 cm Denver Larry Other [employer] Other 11-10-2020 10:30-0400 Body mass index (BMI) [Ratio] 35.9 kg/m2 Denver Larry Other [employer] Other 11-10-2020 10:30-0400 Body weight 86.18 kg Denver Larry Other [employer] Other 11-10-2020 10:30-0400 Diastolic blood pressure 84 mm[Hg] Denver Juarez Other [employer] Other 11-10-2020 10:30-0400 Systolic blood pressure 150 mm[Hg] Denver Millernorah Other [facility] [employer] Other Encounters Encounter Date Encounter Type Care Provider Facility Start: 10-22-2023 End: 10-22-2023 ambulatory CINDY GREENE Not Available Start: 09-11-2023 End: 09-11-2023 ambulatory [facility] Start: 09-09-2023 End: 09-09-2023 ambulatory SHAIKH BARB Not Available Start: 08-21-2023 End: 08-21-2023 Patient encounter procedure JALEN DENTON [facility] Start: 08-21-2023 End: 08-21-2023 ambulatory SHAIKH BARB Not Available Start: 08-08-2023 End: 08-08-2023 ambulatory MD Shaikh Day Work Phone: [facility] Work Phone: Start: 08-08-2023 End: 08-08-2023 Patient encounter procedure MD Shaikh Day Work Phone: [facility] V[facility] Work Phone: Start: 07-15-2023 End: 07-15-2023 ambulatory Carmen X Orzech [place] [place] Start: 07-15-2023 End: 07-15-2023 Lab Drop off Carmen X Orzech [facility] Start: 07-15-2023 End: 07-15-2023 ambulatory Carmen X Orzech Facility:[facility] Start: 07-15-2023 End: 07-15-2023 Patient encounter procedure Carmen X Orzech [facility] Start: 07-02-2023 End: 07-02-2023 ambulatory [facility] Start: 2023 End: 2023 ambulatory DE OLIVEIRA BARB Not Available Start: 05-15-2023 End: 05-15-2023 ambulatory SHAIKH BARB Not Available Start: 05-12-2023 End: 05-12-2023 ambulatory Hannah Still Facility:[facility] Start: 05-12-2023 End: 05-12-2023 Patient encounter procedure [employer] Hannah Still Work Phone: [facility] Work Phone: Start: 05-12-2023 End: 05-12-2023 ambulatory Hannah Still [facility] Work Phone: Start: 05-11-2023 End: 05-11-2023 ambulatory MD Shaikh Day Work Phone: [facility] Work Phone: Start: 05-11-2023 End: 05-11-2023 Patient encounter procedure MD Shaikh Day Work Phone: [facility] Work Phone: Start: 05-09-2023 End: 05-09-2023 ambulatory MD Shaikh Day Work Phone: [facility] Work Phone: Start: 05-09-2023 End: 05-09-2023 Patient encounter procedure MD Shaikh Day Work Phone: [facility] Work Phone: Start: 04-12-2023 Non-patient / Non-visit MD Shaikh Day Work Phone: [facility] Work Phone: Start: 04-12-2023 End: 04-13-2023 Evaluation and management of inpatient MD Shaikh Day Work Phone: [facility] [place] [facility] Work Phone: Start: 04-10-2023 Telephone encounter [facility] Comment on above: Sooner Appt Start: 04-09-2023 End: 04-09-2023 Patient encounter procedure MD Shaikh Day Work Phone: [facility] Work Phone: Start: 04-09-2023 End: 04-09-2023 ambulatory Shaikh Barb Facility:[facility] Start: 03-28-2023 Orders Only Shaikh Barb VIDES Work Phone: [facility] Comment on above: Anxiety and depressi on (CMS/HCC) (Primary Dx) NEW PATIENT REFERRAL Start: 03-20-2023 End: 03-20-2023 ambulatory [facility] Start: 03-20-2023 End: 03-20-2023 Office outpatient new 45 minutes Georges Garcia MD Work Phone: [facility] Comment on above: Dizzy (Primary Dx); 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 (CMS-HCC); Dizziness Start: 03-14-2023 End: 03-14-2023 ambulatory [facility] Start: 03-07-2023 End: 03-07-2023 ambulatory SHAIKH LEANDROCODY Facility:[facility] Start: 03-07-2023 End: 03-07-2023 Patient encounter procedure Carmen Quintero [facility] Start: 03-06-2023 End: 03-06-2023 ambulatory DE OLIVEIRA DEMETRIUSPRAKASH Not Available Start: 03-06-2023 ambulatory [facility] Start: 03-03-2023 ambulatory [facility] Start: 03-01-2023 End: 03-07-2023 Emergency department patient visit [facility] Start: 02-21-2023 ambulatory SHAIKH BARB Facility: [facility] Start: 02-20-2023 End: 02-20-2023 ambulatory DE OLIVEIRA BARB Not Available Start: 02-16-2023 ambulatory [facility] Start: 02-13-2023 End: 02-13-2023 ambulatory MEGHANN RAYMUNDO [facility] Start: 01-24-2023 Telephone encounter Charlette Burr [facility] Comment on above: paperwork Start: 01-21-2023 End: 01-21-2023 ambulatory MD Shaikh Day Work Phone: [facility] Work Phone: Start: 01-21-2023 End: 01-21-2023 Discharged Recurring MD Shaikh Day Work Phone: [facility]-Physical Therapy [address] Start: 10-16-2022 End: 10-16-2022 ambulatory Kori Temple Other [facility] Other Start: 10-16-2022 Office outpatient visit 15 minutes Kori Temple [facility] Start: 04-04-2022 End: 04-04-2022 ambulatory Denver Juarez Other [facility] Other Start: 04-04-2022 Office outpatient visit 15 minutes Denver Juarez [facility] Start: 03-06-2022 End: 03-06-2022 ambulatory Earline Harris Other [facility] Other Start: 03-06-2022 Telephone encounter Earline Harris [facility] [address] Start: 03-02-2022 End: 03-02-2022 ambulatory MD Gerry Godwin Work Phone: [facility] Work Phone: Start: 03-02-2022 End: 03-02-2022 Departed Referred MD Gerry Godwin Work Phone: [facility]-Lab [place] Work Phone: Start: 02-21-2022 End: 02-22-2022 ambulatory MEGHANN RAYMUNDO Facility:[facility]1 Start: 02-20-2022 End: 02-21-2022 ambulatory DE OLIVEIRA H FAWWAD Facility:[facility] Start: 01-31-2022 End: 02-01-2022 ambulatory DE OLIVEIRA H FAWWAD Facility:[facility]1 Start: 01-22-2022 End: 01-23-2022 ambulatory DE OLIVEIRA H FAWWAD Facility:[facility]1 Start: 01-18-2022 End: 01-19-[address] Facility:[facility]1 Start: 01-09-2022 End: 01-09-2022 ambulatory MD Shaikh Day Work Phone: [facility] Work Phone: Start: 01-09-2022 End: 01-09-2022 Discharged Recurring MD Shaikh Day Work Phone: [facility]-Speech Therapy [address] Start: 01-02-2022 End: 01-03-2022 ambulatory DE OLIVEIRA H FAWWAD Facility:H1 Start: 12-07-2021 End: 12-08-2021 ambulatory DE OLIVEIRA H FAWWAD Facility:[facility]1 Start: 11-27-2021 End: 11-28-2021 ambulatory DE OLIVEIRA H FAWWAD Facility:[facility]1 Start: 11-26-2021 End: 11-26-2021 ambulatory DE OLIVEIRA H FAWWAD Facility:[facility] Start: 11-24-2021 End: 11-24-2021 Emergency department patient visit [address] [facility] Facility:[id number] Start: 11-21-2021 End: 11-22-2021 Evaluation and management of inpatient MD Shaikh Day Work Phone: [facility] [place] [facility] Start: 11-14-2021 Registered Recurring MD Shaikh Day Work Phone: [facility]-Speech Therapy [address] Start: 10-31-2021 End: 10-31-2021 ambulatory Denver Larry Other [facility] Other Start: 10-31-2021 Telephone encounter Denver Chanel [facility] [employer] [facility] Start: 10-24-2021 End: 10-25-2021 ambulatory SHAIKH Be DAY Facility:[facility]1 Start: 10-16-2021 End: 10-18-2021 Evaluation and management of inpatient SHAIKH Be DAY Facility:[facility]1 Start: 09-27-2021 End: 09-27-2021 ambulatory Denver Juarez Other [facility] Other Start: 09-27-2021 Office outpatient visit 15 minutes Denver Juarez [facility] Start: 09-22-2021 End: 09-22-2021 ambulatory Ilda Das Other [facility] Other Start: 09-22-2021 Office outpatient visit 15 minutes Ilda Das [facility] Start: 09-20-2021 End: 09-20-2021 ambulatory Susie Arrington Other [facility] Other Start: 09-20-2021 Office outpatient visit 10 minutes Susie Arrington [facility] Start: 09-02-2021 End: 09-02-2021 ambulatory SHAIKH Be DAY Facility:[facility]1 Start: 08-31-2021 End: 08-31-2021 Patient encounter procedure MD Shaikh Day Work Phone: [facility]-Ultrasound [facility] Start: 08-29-2021 Registered Recurring MD Shaikh Day Work Phone: [facility]-Speech Therapy [address] Start: 08-24-2021 ambulatory LIZ DAVID Facility :[facility]1 Start: 08-02-2021 End: 08-02-2021 ambulatory Susie Arrington Other [facility] Other Start: 08-02-2021 End: 08-02-2021 Patient encounter procedure Susie Murphy [facility] Start: 07-29-2021 End: 07-29-2021 ambulatory SHAIKH Be DAY Facility:[facility]1 Start: 07-12-2021 End: 07-12-2021 ambulatory Susiejennifer Arrington Other [facility] Other Start: 07-12-2021 Office outpatient visit 15 minutes Susie Rosaliaey [facility] Start: 07-12-2021 End: 07-12-2021 Patient encounter procedure MD Shaikh Day Work Phone: [facility] Start: 06-15-2021 End: 06-15-2021 Discharged Recurring MD Shaikh Day Work Phone: [facility]-Newspaper Library Manager [address] Start: 05-31-2021 End: 05-31-2021 ambulatory Susiejennifer Arrington Other [facility] Other Start: 05-31-2021 Postop follow up vis it related to original px Susie Calvey [facility] Start: 05-08-2021 End: 05-08-2021 ambulatory SHAIKH Be DAY Facility:[facility]1 Start: 05-03-2021 End: 05-03-2021 ambulatory Susie Murphy Other [facility] Other Start: 05-03-2021 Postop follow up vis it related to original px Susie Calvey [facility] Start: 03-30-2021 End: 03-31-2021 ambulatory SHAIKH Be DAY Facility:[facility]1 Start: 03-02-2021 End: 03-02-2021 ambulatory Denver Juarez Other [facility] [employer] Other Start: 03-02-2021 Office outpatient visit 15 minutes Denver Juarez [facility] Surgery Start: 12-01-2020 Office outpatient visit 25 minutes Denver Juarez [facility] Start: 11-10-2020 Office outpatient visit 15 minutes Denver Juarez [facility] Surgery Procedures Date Procedure Procedure [...] DTaP,Tdap and Td Vaccines (2 - Tdap) [facility] Start: 03-20-2024 Adult BMI Screening Adult BMI Screening [facility] Start: 03-20-2024 Depression Screening Depression Screening [facility] Start: 03-20-2024 Tobacco Screening Tobacco Screening [facility] Start: 08-08-2023 Patient referral [facility] Work Phone: Start: 08-08-2023 Doppler ultrasonography of bilateral carotid arteries US carotid doppler BI [facility] Start: 07-02-2023 End: 07-02-2023 Patient encounter procedure 07/02/2023 9:00 AM EDT Office Visit [facility] [address] [place] [phone] Martin Espinosa MD [address] [place] [address], [address] [place] [address] [facility] Start: 2023 End: 2023 Patient encounter procedure 2023 6:30 PM EDT Office Visit [facility] [address] [place] [address] Shaikh Day MD [address] [place] [phone] [facility] Start: 05-11-2023 Bacteria identified in Urine by Culture [facility] Start: 04-13-2023 [facility] Start: 04-12-2023 Hospital admission [facility] Start: 04-12-2023 Cerebral Embolic Filtration, Extracorporeal Flow Reversal Circuit from Right Common Carotid Artery, Percutaneous Approach, [employer] Cerebral Embolic Filtration, Extracorporeal Flow Reversal Circuit from Right Common Carotid Artery, Percutaneous Approach, [employer] [facility] Start: 04-12-2023 Dilation of Right Internal Carotid Artery with Intraluminal Device, Open Approach Dilation of Right Internal Carotid Artery with Intraluminal Device, Open Approach [facility] Start: 03-12-2023 End: 03-12-2023 Patient encounter procedure 03/12/2023 10:00 AM EST Office Visit [facility] [address] [place] [phone] Alan Elmore MD [address] [place] [address], [address] [place], [place] [phone] [facility] Start: 10-12-2022 COVID-19 Vaccine ( season) COVID-19 Vaccine ( season) [facility] Start: 03-02-2022 Bacteria identified in Urine by Culture Urine Culture [facility] Start: 11-22-2021 Comprehensive metabolic 2000 panel - Serum or Plasma [facility] Start: 11-22-2021 Magnesium measurement [facility] Start: 11-22-2021 End: 11-22-2021 [facility] Start: 11-21-2021 Patient referral to dietitian [facility] Start: 11-21-2021 Referral to gis professor [facility] Start: 11-21-2021 Hospital admission [facility] Start: 11-21-2021 Physical therapy procedure [facility] Start: 11-21-2021 Referral to occupational therapist [facility] Start: 11-21-2021 [facility] Start: 08-31-2021 Doppler ultrasonography of bilateral carotid arteries US carotid doppler BI [facility] Start: 08-31-2021 US.doppler Carotid arteries - bilateral [facility] Work Phone: Start: 2013 Fall Risk Screening Fall Risk Screening [facility] Start: 1998 Administration of varicella zoster vaccine Zoster (Shingles) Vaccine (1 of 2) [facility] Start: 1988 Screening for malignant neoplasm of breast Mammogram [facility] Start: 1966 Adult BMI Follow Up Plan Adult BMI Follow Up Plan [facility] Start: 1966 Adult BMI Screening Adult BMI Screening [facility] Start: 1960 Depression Screening Depression Screening [facility] Start: 1960 Tobacco Screening Tobacco Screening [facility] Start: 1948 Medicare Annual Wellness (AWV) Medicare Annual Wellness (AWV) [facility] Start: 1948 Medicare Annual Wellness Visit Medicare Annual Wellness Visit [facility] Start: 1948 Screening for malignant neoplasm of colon [facility] Bacteria identified in Blood by Culture [facility] Bacteria identified in Urine by Culture [facility] Blood culture for bacteria, including anaerobic screen Blood Culture [facility] Patient Education [facility] Work Phone: Patient referral [facility] Work Phone: Urine culture Urine Culture [facility] US.doppler Carotid arteries - [facility] US.doppler Carotid arteries - [facility] Immunizations Immunization Date Immunization Notes Care Provider [facility] 11-24-2022 influenza virus vaccine, unspecified formulation Carmen Quintero [facility] 11-24-2022 Influenza, Seasonal, Quadrivalent, Adjuvanted Shaikh Barb VIDES Work Phone: [facility] 11-24-2022 Pneumococcal Conjuga te PCV 20 Shaikh Barb VIDES Work Phone: [facility] 11-24-2022 RSV, recombinant, protein subunit RSVpreF, adjuvant reconstitu, 120mcg/0.5mL, PF (Arexvy) Shaikh Barb VIDES Work Phone: [facility] 01-20-2022 influenza virus vaccine, unspecified formulation Carmen Orzecb [facility] 01-20-2022 Influenza, Seasonal, Quadrivalent, Adjuvanted Shaikh Barb VIDES Work Phone: [facility] 11-26-2020 influenza virus vaccine, unspecified formulation Carmen Orzecb [facility] 11-26-2020 Influenza, Seasonal, Quadrivalent, Adjuvanted Shaikh Barb VIDES Work Phone: [facility] 11-18-2020 diphtheria, tetanus toxoids and pertussis vaccine Shaikh Barb VIDES Work Phone: [facility] 06-11-2020 COVID-19 Ad26.COV2.S (Clarence) MD Shaikh Day Work Phone: [facility] 12-09-2019 influenza virus vaccine, unspecified formulation Carmen Orzecb [facility] 12-09-2019 Influenza, High-dose Seasonal, Quadrivalent, Preservative Free Shaikh Barb VIDES Work Phone: [facility] 12-22-2018 influenza virus vaccine, unspecified formulation Carmen Orvicky [facility] 12-22-2018 influenza, high dose seasonal, preservative-free Shaikh Barb VIDES Work Phone: [facility] 02-17-2009 novel [id number], preservative-free, injectable Shaikh Barb VIDES Work Phone: [facility] Payers Date Payer Category Payer Medicare [id number] [facility] [id number] 2018 Medicare [id number] 2008 Unknown [id number] 1959 Medicare [id number] 2. [id number] 1959 Self-pay [id number] 1948 Unknown [id number] 2.16.8 40.1.435412.3.579.2.159 1948 Unknown [id number] 2.16.84 0.1.996077.3.579.2.593 1948 Unknown [id number] 2.16.84 0.1.596618.3.579.2.593 1948 Unknown [id number] 2.16.84 0.1.372408.3.579.2.593 1948 Unknown [id number] 2.16.84 0.1.397987.3.579.2.593 1948 Unknown [id number] 2.16.84 0.1.674381.3.579.2.593 1948 Unknown [id number] 2.16.84 0.1.284422.3.579.2.593 1948 Unknown [id number] 2.16.84 0.1.819795.3.579.2.593 1948 Unknown [id number] 2.16.84 0.1.009508.3.579.2.593 1948 Unknown [id number] 2.16.84 0.1.253727.3.579.2.593 1948 Unknown [id number] 2.16.84 0.1.941208.3.579.2.593 1948 Unknown [id number] 2.16.84 0.1.236247.3.579.2.593 1948 Unknown [id number] 2.16.84 0.1.729151.3.579.2.593 1948 Unknown [id number] 2.16.84 0.1.464744.3.579.2.593 1948 Unknown [id number] 2.16.84 0.1.109785.3.579.2.593 1948 Unknown [id number] 2.16.84 0.1.617437.3.579.2.593 1948 Unknown [id number] 2.16.84 0.1.019433.3.579.2.593 1948 Unknown [id number] 2.16.84 0.1.270912.3.579.2.593 1948 Unknown [id number] 2.16.84 0.1.669849.3.579.2.593 1948 Unknown [id number] 2.16.8 40.1.437280.3.579.2.1286 1948 Unknown [id number] 2.16.8 40.1.313867.3.579.2.128 1948 Unknown [id number] 2.16.8 40.1.873255.3.579.2.1286 1948 Unknown [id number] 2.16.8 40.1.772747.3.579.2.128 1948 Unknown [id number] 2.16.8 40.1.200836.3.579.2.1286 1948 Unknown [id number] 2.16.8 40.1.206994.3.579.2.128 1948 Unknown [id number] 2.16.8 40.1.620928.3.579.2.1286 1948 Unknown [id number] 2.16.8 40.1.859043.3.579.2.128 1948 Unknown [id number] 2.16.8 40.1.051016.3.579.2.1286 1948 Unknown [id number] 2.16.8 40.1.801932.3.579.2.1286 1948 Unknown [id number] 2.16.8 40.1.303934.3.579.2.1286 1948 Unknown [id number] 2.16.8 40.1.207120.3.579.2.128 1948 Unknown [id number] 2.16.8 40.1.765623.3.579.2.128 1948 Unknown [id number] 2.16.84 0.1.364453.3.579.2.1286 1948 Unknown [id number] 2.16.8 40.1.806221.3.579.2.727 1948 Unknown [id number] 2.16.8 40.1.194525.3.579.2.727 1948 Unknown [id number] 2.16.8 40.1.272175.3.579.2.727 1948 Unknown [id number] 2.16.84 0.1.989647.3.579.2.1259 1948 Unknown [id number] 2.16.84 0.1.770767.3.579.2.1259 1948 Unknown [id number] 2.16.84 0.1.635909.3.579.2.1259 1948 Unknown [id number] 2.16.84 0.1.860774.3.579.2.125 1948 Unknown [id number] 2.16.84 0.1.722993.3.579.2.1259 1948 Unknown [id number] 2.16.84 0.1.515079.3.579.2.1259 1948 Unknown [id number] 2.16.84 0.1.743724.3.579.2.1259 Medicare Medicare [id number] Unknown [id number] 2.16.8 40.1.120944.3.579.2.531 Unknown [id number] 2.16.8 40.1.945567.3.579.2.531 Unknown [id number] 2.16.8 40.1.858806.3.579.2.531 Unknown [id number] 2.16.8 40.1.600543.3.579.2.531 Unknown [id number] 2.16.8 40.1.800191.3.579.2.531 Social History Date Type Detail Facility Start: 04-05-2018 End: 02-23-2020 [facility] Start: 03-31-2021 End: 04-12-2023 Tobacco smoking status ORIS Ex-smoker (finding) [facility] Start: 1950 Sex Assigned At Female [facility] History of tobacco use Current smoker [facility] History of tobacco use Cigarette Smoker P [employer] [facility] Start: 07-22-2018 End: 02-23-2020 Cigarettes smoked current (pack per day) - Reported [facility] Start: 07-22-2018 End: 02-20-2023 Tobacco use and exposure Smokeless tobacco non-user [facility] Start: 08-25-2018 End: 03-20-2023 Alcohol intake Current non-drinker of alcohol (finding) [facility] Frequency of Alcohol Consumption Never [facility] Start: 1950 Sex Assigned At Not on file P [employer] [facility] Start: 03-07-2023 End: 08-21-2023 Tobacco smoking status Never smoked tobacco (finding) [facility] Start: 03-06-2023 Alcohol intake Lifetime non-d chelsea (finding) [facility] Medical Equipment Procedure Code Equipment Code Equipment Origin al Text Equipment Identifier Dates Transcarotid artery revascularization (TCAR) Bare-metal carotid artery stent ()[id number] FDA Start: 04-12-2023 ORIF, fracture, wrist Orthopaedi c fixation plate, non-bioabsorbable, sterile ()[id number] FDA Start: 03-31-2021 ORIF, fracture, wrist Orthopaedi c bone screw, non-bioabsorbable, non-sterile ()[id number] FDA Start: 03-31-2021 ORIF, fracture, wrist Orthopaedi c bone screw, non-bioabsorbable, non-sterile ()[id number] FDA Start: 03-31-2021 ORIF, fracture, wrist Orthopaedi c bone screw, non-bioabsorbable, non-sterile ()[id number] FDA Start: 03-31-2021 ORIF, fracture, wrist Orthopaedi c bone screw, non-bioabsorbable, non-sterile ()[id number] FDA Start: 03-31-2021 Endarterectomy, carotid Cardiova scular patch, animal-derived ()[id number] FDA Start: 04-06-2020 Sys Crd Rvl Linq Rpl [id number] - [id number] - [id number] Start: 04-08-2018 Goals Date Patient Goal [...] 08-21-2023 Functional Status N/A [facility] 07-15-2023 Functional Status N/A [facility] 04-12-2023 Functional status Patient at Baseline [facility] Work Phone: 03-07-2023 Functional Status N/A [facility] 11-22-2021 Functional status Patient at Baseline [facility] Work Phone: 11-21-2021 Functional status Patient Not at Baseline [facility] Work Phone: Mental Status Date Assessment Result Facility 04-12-2023 Cognitive function Cognitive Sta tus Patient at Baseline [facility] Work Phone: 11-22-2021 Cognitive function Cognitive Sta tus Patient at Baseline [facility] Work Phone: 11-21-2021 Cognitive function Cognitive Sta tus Patient Not at Baseline [facility] Work Phone: Clinical Notes 11-10-2020 to 09-11-2023 Telephone Encounter - Re Becerra - 04/10/2023 11:48 AM ESTTelephone Encounter - Re Becerra - 04/10/2023 11:48 AM ESTTelephone Encounter - Марина Whiting - 03/28/2023 2:16 PM EST Note Date & Type Note Facility 09-11-2023 Note [facility] Subjective Ozzie Gifford is a [...] Recurrent major depressive disorder, in full remission (CMS/FORMERLY [facility]) Encounter for prophylactic measures, unspecified URTI (acute [...] past year she was admitted to the [facility] in October 2022 and February 2023 due to TIA symptoms. She and her son tell me that she underwent redo right carotid surgery this year at [facility]. Today she reports that [...] abdominal tenderness. Musculoskeleta (more content not included)... [facility] 08-21-2023 Hospital Discharge instructions Patient Education [...] medicine. Follow these instructions at home: Take lbsm-njh-acktzey and prescription medicines as told by your [...] provider. Document Revised: 03/14/2020 Document Reviewed: 11/17/2019 [employer] Patient Education 2022 [employer]. Follow Up Care 08/20/2023 09:52:06 With:JALEN DENTON PA-C, URL Address: [facility] [address] [address] Business (1) When: only if needed [facility] 07-15-2023 Hospital Discharge instructions Patient Education [...] Treatment for this condition includes: Antibiotic medicine. Ggrf-zdo-erofksv medicines to treat discomfort. Drinking enough water [...] Follow these instructions at home: Medicines Take iesf-gal-psgxpmk and prescription medicines only as told by [...] provider. Document Revised: 09/09/2020 Document Reviewed: 09/09/2020 [employer] Patient Education 2022 [employer]. 07/15/2023 13:39:50 Urinary Incontinence Urinary Incontinence Urinary [...] nerve stimulation). ?For women, using a medical records administrator to prevent urine leaks. This is a [...] right after experiencing incontinence. General instructions Take lkof-opb-jdnurct and prescription medicines only as told by [...] important. Where to find more information National [place] of Diabetes and Digestive and Kidney Diseases: www.niddk.nih.gov [place] [employer]: www.urologyhealth.org Contact a health care [...] provider. Document Revised: 09/02/2020 Document Reviewed: 09/02/2020 [employer] Patient Education 2022 [employer]. Follow Up Care 07/15/2023 10:29:19 With:MITRA Quintero APRN, Carmen Rm, JAYESH, URL Address: When: Unknown Comments:1 yr w/ PVR [facility] 07-15-2023 Evaluation + Plan note Diagnostic Tests PendingUrine Culture 07/15/23 [facility] 04-19-2023 Note From a Cardiology pe rspective pt is an acceptable risk for carotid surgery. Please monitor hemodynamics carefully and prevent any major fluid shifts. [facility] 04-10-2023 Miscellaneous Notes Received a call from patient's PCP office regarding appointment that's scheduled on 07/02/23 at 9:00a with Dr. Espinosa. Their office stated patient was suppose to be scheduled within 3 weeks from seeing last provider Dr. Garcia, Consulting Sme did review office note and nothing was stated that patient needed a [address] Espinosa. Patient was scheduled at next available time for provider. No further questions at this time. documented in this encounter [facility] 04-10-2023 Telephone encounter Note Received a call from patient's PCP office regarding appointment that's scheduled on 07/02/23 at 9:00a with Dr. Espinosa. Their office stated patient was suppose to be scheduled within 3 weeks from seeing last provider Dr. Garcia, Consulting Sme did review office note and nothing was stated that patient needed a [address] Espinosa. Patient was scheduled at next available time for provider. No further questions at this time. [facility] 03-28-2023 Miscellaneous Notes First Attempt [...] 03/29/2023 - MMV documented in this encounter [facility] 03-28-2023 Telephone encounter Note First Attempt Made from [employer]- Left Voicemail New patient referral received. Dx:Dizzy [[id number]]/ Referred by:Rabia Dubose PA-C Referred to: Providers patient can see in clinic: Please contact patient to schedule from referral, Thanks! PLEASE REVIEW PLAN OVER THE PHONE AND ADVISE PATIENT TO BRING UPDATED INSURANCE INFORMATION TO THEIR NEW PATIENT APPOINTMENT [facility] 03-28-2023 Telephone encounter Note Patient is scheduled for the following appointment: 07/02/2023 09:00 - MARTIN ESPINOSA MD New patient Dizzy [[id number]] Referring provider: Rabia Dubose PA-C i Referred to Dr. Espinosa *Insurance verified: E-[employer]HEM MEDICARE/ANTHEM MEDICARE ADVANTAGE* NOT A WORKMANS COMP CASE New patient paperwork mailed 03/29/2023 - [facility] 03-20-2023 History of Present illness Narrative Reason for visit: dizziness HPI: Ozzie Gifford is a 72 y.o. 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 She was seen at [facility] for of speech disturbance and gait [...] Date Breast disorder Headache HTN (hypertension) Stroke ([facility]) Past Surgical History Past Surgical History: Procedure Laterality Date APPENDECTOMY BARIATRIC SURGERY BREAST MASS EXCISION Patient had milk duct removal and some breast tissue removal CHOLECYSTECTOMY COLONOSCOPY Diagnostic cerebral angiogram N/A 04/05/2018 Performed by Soren Hollingsworth MD at [facility] CARDIAC CATH LABS HYSTERECTOMY REPLACEMENT TOTAL KNEE Stroke Thrombectomy, 04/05/2018 N/A 04/05/2018 Performed by Soren Hollingsworth MD at [facility] CARDIAC CATH LABS TONSILLECTOMY Family History The [...] the note above. documented in this encounter [facility] 03-20-2023 Instructions Rabia Dubose PA-C - 03/20/2023 1:00 PM EST Continue aspirin and statin Follow up with dizziness specialist We will discuss with you following appointment with Dr. Espinosa documented [facility] this [facility]14[facility]2023 Note Coronary artery dise ase is stable Continue GDMT- ASA, crestor, toprol, lisinopril- HCTZ continue risk factor modifications- heart healthy diet, regular exercise as tolerated and continue all medications. [facility] 03-14-2023 Note Hypertension is well controlled Continue all meds [facility] 03-14-2023 Note Continue lasix 20 mg daily and edema is improved [facility] 03-14-2023 Note Patient here for 1 m o follow up echo. She was discharged from [facility] 2 weeks ago for TIA. She did [...] All other systems reviewed and are negative. [facility] 03-14-2023 Note UTP CARDIOLOGY PROGR ESS NOTE HPI: zOzie Gifford is a 72 y.o. female here for F/U HPI Patient here for 1 mo follow up echo. She was discharged from [facility] 2 weeks ago for TIA. She did [...] stroke on 10/20/2022 and was seen in [facility] ED. She is having trouble getting [...] -ECHO 03/24/20: EF (more content not included)... [facility] 03-07-2023 Hospital Discharge instructions Patient Education [...] nerve stimulation). ?For women, using a medical records administrator to prevent urine leaks. This is a [...] right after experiencing incontinence. General instructions Take utbi-xhs-pxkcjvf and prescription medicines only as told by [...] important. Where to find more information National [place] of Diabetes and Digestive and Kidney Diseases: www.niddk.nih.gov [place] [employer]: www.urologyhealth.org Contact a health care [...] provider. Document Revised: 09/02/2020 Document Reviewed: 09/02/2020 [employer] Patient Education 2022 [employer]. Follow Up Care 02/21/2023 11:58:10 With:MITRA Quintero APRN, Carmen Rm, JAYESH, URL Address: When:Within 8 Week(s) Comments:w/ pvr [facility] 02-26-2023 Note SARAVIA and leg edema- r ecommended to increase lasix to 40 mg daily for diuresis and repeat BMP next week [facility] 02-13-2023 Note Lipid abnormalities are well controlled, continue crestor [facility] 02-13-2023 Note Hypertension is elev ated, currently will increase lasix to daily and increase potassium, Repeat BMP in 1 week Continue norvasc 2.5 mg Renal function normal [facility] 02-13-2023 Note Coronary artery dise ase is stable Continue GDMT- ASA, crestor and toprol continue risk factor modifications- heart healthy diet, regular exercise as tolerated and continue all medications. [facility] 02-13-2023 Note F/U with neuro [facility] 02-13-2023 Note Patient here for 6 m o follow up CAD, hypertension, and carotid artery stenosis. She states she tries to take her lasix every other day. C/o pissing herself at night and smelly urine . Says she had another stroke on 10/20/2022 and was seen in [facility] ED. She is having trouble getting [...] All other systems reviewed and are negative. [facility] 02-13-2023 Note UTP CARDIOLOGY PROGR ESS [...] stroke on 10/20/2022 and was seen in [facility] ED. She is having trouble getting [...] to get appointment with Neuro/stroke service at [facility] and with her PCP DR Posey. [...] Affect: Mood nor (more content not included)... [facility] 01-24-2023 Miscellaneous Notes Patient called to see if we received paperwork that was sent from her PCP in July. Caller states she has had a new stroke and needs to be seen. Patient states she has been having headaches and dizziness. Please advise [phone] Patient last seen in 2019. No paperwork has been completed or received. Please see where patient had recent stroke and gather records. Called pt. She state Dr. Godwin sent the paperwork back in November 2022. MRI was done at [place] very recently. Consulting Sme will be requesting image and any office visit notes related to neurology. Pt seems to be very frustrated by the lack of communication. Consulting Sme informed that we will reach out to [place] to gather as much information. Consulting Sme must note that the quality of the call was very poor and it was hard to communicate with the patient. Asked if she could move to somewhere with a better oenologist, but even then the quality did not improve. At the end of the call, she showed more frustration which production underwriter could not understand and she hung up. Called [facility] radiology to confirm if she has gotten any MRI in November. It was ordered by one of the hospitalists. A alignment technician could not confirm who ordered the imaging, but confirmed that she pushed over the imaging through PACs and reports via fax. Currently waiting for response. Faxed request for hospitalization records on nov 2022. Currently waiting for response. Called and scheduled an appointment on 03/12/23 at 10:00 AM documented in this encounter [facility] 01-24-2023 Telephone encounter Note Patient called to see if we received paperwork that was sent from her PCP in July. Caller states she has had a new stroke and needs to be seen. Patient states she has been having headaches and dizziness. Please advise [phone] [facility] 01-24-2023 Telephone encounter Note Patient last seen in 2019. No paperwork has been completed or received. Please see where patient had recent stroke and gather records. [facility] 01-24-2023 Telephone encounter Note Called pt. She state Dr. Godwin sent the paperwork back in November 2022. MRI was done at [place] very recently. Consulting Sme will be requesting image and any office visit notes related to neurology. Pt seems to be very frustrated by the lack of communication. Consulting Sme informed that we will reach out to [place] to gather as much information. Consulting Sme must note that the quality of the call was very poor and it was hard to communicate with the patient. Asked if she could move to somewhere with a better oenologist, but even then the quality did not improve. At the end of the call, she showed more frustration which production underwriter could not understand and she hung up. [facility] 01-24-2023 Telephone encounter Note Called [facility] radiology to confirm if she has gotten any MRI in November. It was ordered by one of the hospitalists. A alignment technician could not confirm who ordered the imaging, but confirmed that she pushed over the imaging through PACs and reports via fax. Currently waiting for response. [facility] 01-24-2023 Telephone encounter Note Faxed request for hospitalization records on nov 2022. Currently waiting for response. [facility] 01-24-2023 Telephone encounter Note Called and scheduled an appointment on 03/12/23 at 10:00 AM [facility] 10-16-2022 Evaluation note Encounter Date Diagnosis Assessment [...] with chronic urinary symptoms. Patient verbalized understanding. [facility] Other 02-22-2023 Evaluation note* Encounter Date Diagnosis [...] 1 year with repeat studies for surveillance. [facility] Other 10-18-2022 NoteED Procedure Charges Entered On: 11/28/2021 17:45 EDT Performed On: 11/28/2021 17:44 EDT by Heena Crawford [employer] ([id number]) Sim Rep Sca to 2.5 [id number] : 1 Heena Crawford - [facility]28[facility]2021 17[facility]ED Nursing Discharge Summary Entered On: 11/24/2021 17:29 EDT Performed On: 11/24/2021 17:29 EDT by Jennifer Mccarthy RN [place] Information [id number] ED IV's : No IV ED IV Site Assessment : No IV ED Vitals Completed : Yes ED Final Assessment Completed : Yes ED Progress Note Completed : Yes Complete all PRN/Pain response forms? : Yes ED Disassociate Patient from Monitor : N/A Updated Depart Time : Yes ED Belongings sent w patient [id number] : Not applicable Jennifer Mccarthy RN - [...] Jennifer Mccarthy RN - 11/24/2021 17:29 EDT [facility] NotePROCEDURE: CT CHEST WITHOUT IV CONTRAST HISTORY: WHAT SYMPTOMS ARE YOU EXPERIENCING? - PT FELL AND HIT HEAD, PAIN, HX OF STROKE 2019, SOB, CHEST PAIN PAIN COMPARISON: None TECHNIQUE: Multiple contiguous axial CT images of the chest were obtained without the administration of intravenous contrast. Sagittal and coronal reconstructions were performed. All CT scans at [facility] use dose modulation, iterative reconstruction, and/or [...] in diameter. See below for follow-up recommendations. [facility] MANDATED QUALITY DATA - FOLLOW-UP IMAGING [...] By: ISMAEL AGUILAR MD Signed Out: 11/24/21 14:28:[address] [place], [place] 5724110-12-2022 Consult note Author Shavon Leos [facility] November 22, 2021 11:54am Note Date/Time November 22, 2021 1 1:45am [facility] [address] [place] [address] Cardiology Consult Note Signed Patient: Ozzie Gifford MR#: [id number] : 1950 Acct:[id number] Age/Sex: 71 / F Adm Date: 2 Loc: Room: [address] [place] [address] Type: ADM IN Attending Dr: Anna Valladares [...] past she underwent work-up by cardiology in [place]. She did undergo an implantable loop recorder [...] of appendectomy History of cardiac catheterization 2020 [facility] History of knee replacement right [...] x10E3/uL Lymph # (Auto) 1.2 (1.00-4.8) x10E3/uL Charles # (Auto) 0.4 (0.0-0.8) x10E3/uL Eos # [...] ,000 ml @ 100 mls/hr IV .Q10H [facility] Rx#:[id number] Oral 250 / 500 450 / 450 [...] implantable loop recorder had seen cardiology in [place] Code(s): R00.1 - Bradycardia, unspecified (2) AMS [...] continue his long-term follow-up with his primary gis professor in [place] Documented By: Shavon Leos MD 11/22/21 1143 Signed By: <Electronically signed by MD Shavon Leos> 11/22/21 1154 [facility] Work Phone: 1(540) 761-576710-12-2022 Progress note Author Anna Valladares [facility] November 22, 2021 8:17am Note Date/Time November 21, 2021 1 2:10pm [facility] [address] [place] [address] Hospitalist Progress Note Signed Patient: Ozzie Gifford MR#: [id number] : 1950 Acct:[id number] Age/Sex: 71 / F Adm Date: 2 Loc: Room: [address] [place] [address] Type: ADM IN Attending Dr: Anna Valladares [...] signed by Anna Valladares MD> 11/22/21 0817 [facility] Work Phone: 1([phone]) 225-981410-11-2022 History and physical note Author Ashleigh Rashid [facility] November 21, 2021 6:39am Note Date/Time November 21, 2021 6 :39am [facility] [address] [place] [address] Hospitalist H&P Signed Patient: Ozzie Gifford MR#: [id number] : 1950 Acct:[id number] Age/Sex: 71 / F Adm Date: 2 Loc: ER Room: Type: [facility] ER Attending Dr: Copies to: MD [...] of appendectomy History of cardiac catheterization 2020 [facility] History of knee replacement right [...] % (Auto) 20.4 % (.) 11/21/21 04:12 Charles % (Auto) 9.9 % (.) 11/21/21 04:12 Eos % (Auto) 3.7 % (.) 11/21/21 04:12 Baso % (Auto) 0.8 % (.) 11/21/21 04:12 Neut # (Auto) 3.5 x10E3/uL (1.8-7.7) 11/21/21 04:12 Lymph # (Auto) 1.1 x10E3/uL (1.00-4.8) 11/21/21 04:12 Charles # (Auto) 0.5 x10E3/uL (0.0-0.8) 11/21/21 04:12 [...] pH 5.5 (5.0-9.0) 11/21/21 04:20 Ur Specific [place] 1.010 (1.001-1.030) 11/21/21 04:20 Urine Protein Negative [...] signed by Ashleigh Cruz MD> 11/21/21 0639 [facility] Work Phone: [phone]) 702-353010-11-2022 History and physical note Author Ashleigh Rashid [facility] November 21, 2021 6:39am Note Date/Time November 21, 2021 6 :39am [facility] [address] [place] [address] Hospitalist H&P Signed Patient: Ozzie Gifford MR#: [id number] : 1950 Acct:[id number] Age/Sex: 71 / F Adm Date: 2 Loc: ER Room: Type: [facility] ER Attending Dr: Copies to: MD [...] of appendectomy History of cardiac catheterization 2020 [facility] History of knee replacement right [...] % (Auto) 20.4 % (.) 11/21/21 04:12 Charles % (Auto) 9.9 % (.) 11/21/21 04:12 Eos % (Auto) 3.7 % (.) 11/21/21 04:12 Baso % (Auto) 0.8 % (.) 11/21/21 04:12 Neut # (Auto) 3.5 x10E3/uL (1.8-7.7) 11/21/21 04:12 Lymph # (Auto) 1.1 x10E3/uL (1.00-4.8) 11/21/21 04:12 Charles # (Auto) 0.5 x10E3/uL (0.0-0.8) 11/21/21 04:12 [...] pH 5.5 (5.0-9.0) 11/21/21 04:20 Ur Specific [place] 1.010 (1.001-1.030) 11/21/21 04:20 Urine Protein Negative [...] signed by Ashleigh Cruz MD> 11/21/21 0639 [facility] Work Phone: 1(610) 336-340308-17-2022 Evaluation note* Encounter Date Diagnosis Assessment Notes [...] studies. All of her questions were addressed. [facility] Other 08-12-2022 Evaluation note* Encounter Date Diagnosis [...] Advised that patient may continue to use hyar-aon-abzbnix medications as needed for supportive treatment. Discussed that it could be possible that her nausea/vomiting/diar debbi could still be some residual side effects from the Paxlovid medication. At this time she should not take anymore that. She may follow-up with family doctor as scheduled on Saturday if she has more concerns. [facility] Other 08-10-2022 Evaluation note* Encounter Date Diagnosis [...] new questions or concerns at this time. [facility] Other 06-22-2022 Evaluation note* Encounter Date Diagnosis [...] Other specified postprocedural states (ICD-10 - Z98.890) [facility] Other 06-01-2022 Evaluation note* Encounter Date Diagnosis [...] Other specified postprocedural states (ICD-10 - Z98.890) [facility] Other 04-20-2022 Evaluation note* Encounter Date Diagnosis [...] Progress activity as tolerated. Call with questions/concerns. [facility] Other 03-23-2022 Evaluation note* Encounter Date Diagnosis Assessment Notes Treatment Notes Treatment Clinical Notes Apr, Other specified postprocedural states (ICD-10 - Z98.890) Radiographs reviewed with patient. Patient is progressing well from surgery. Continue occupational therapy exercises. Call with questions/concerns . Apr, Other fractures of lower end of left radius, subsequent encounter for closed fracture with routine healing (ICD-10 - S52.592D) [facility] Other 01-20-2022 Evaluation note* Encounter Date Diagnosis [...] or reaches 80% or she develops symptoms [facility] Other 10-21-2021 Evaluation note* Encounter Date Diagnosis [...] suggested ice and elevation with compression stockings. [facility] Other 09-30-2021 Evaluation note* Encounter Date Diagnosis [...] classify this is asymptomatic recurrent stenoses currently. [facility] Other Evaluation + Plan note No data available for this section [facility] Evaluation noteNo assessment information available [facility] [place] Work Phone: Evaluation noteNo InformationNort [employer] Other Evaluation note* Diagnosis Onset Date Resolution Status JASEN (acute kidney injury) ac quinault AMS (altered mental status) acute Impaired mobility and activities of daily living acute Symptomatic bradycardia acut e [employer] Work Phone: Evaluation note* Diagnosis Onset Date Resolution Status JASEN (acute kidney injury) ac quinault AMS (altered mental status) acute Impaired mobility and activities of daily living acute Symptomatic bradycardia acut e H/O traumatic brain injury c hronic HLD (hyperlipidemia) chronic HTN, goal below 140/90 chron ic [facility] Work Phone: Evaluation note* Diagnosis Anxiety and depression (CMS/HCC)- Primary documented in this encounter [facility] Diagnosis Dizzy- Primary Dizziness and giddiness 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 (CMS-HCC) Dizziness Dizziness and giddiness documented in this encounter [facility]* Diagnosis Onset Date Resolution Status Carotid stenosis acute Carotid stenosis acute [facility] Work Phone: Evaluation note* Diagnosis Onset Date Resolution Status Carotid stenosis acute Carotid stenosis acute UTI (urinary tract infection) noneactive Contact with or exposure to viral disease noneactive [facility] Work Phone: Evaluation note* Diagnosis Onset Date Resolution Status UTI (urinary tract infection) noneactive Contact with or exposure to viral disease noneactive [facility] Work Phone: Evaluation note* Diagnosis Onset Date Resolution Status UTI (urinary tract infection) noneactive Contact with or exposure to viral disease noneactive Internal carotid artery stent present acute [facility] Work Phone: Hisceio general Narrative - Reported* Type Description Date [...] History childbirth Hospitalization History X2 strokes 2019 [facility] Other Hiscxhu general Narrative - Reported* Type Description Date [...] History childbirth Hospitalization History X2 strokes 2018 [facility] Other Hospital Discharge instructions Additional Instructions Please call and schedule an appointment with your established Shared Services Manager. We attempted to make this appointment for you but the office was currently unavailable.[facility] Work Phone: Hospital Discharge instructions No data available for this section [facility]ructionsNot on filedocumented in this encounter [facility]InstructionsNot on filedocumented in this encounter [facility] Center[facility]SpanInstructionsNot on filedocumented in this encounter [facility] No data available for this section [facility] Reason for referral (narrative)* Consultation (Routine) - Pending Review Specialty Diagnoses / Procedures Referred By Armando walker Referred To Contact Neurology Diagnoses Rabia Hunt PA-C [address] [place] [address] [address] [place] [address] Martin Espinosa MD [address] [place] [address], [address], [address] [place] [address] Referral ID Status Reason Start Date Expiration Date Visits Requested Visits Authorized [id number] Pending Review Specialty Services Required 03/20/2023 03/19/2024 1 1 TV[employer] Summary Purpose Family History No Family History [...] and content) DATE CREATED AUTHOR 03/09/2020 [facility] DATE CREATED AUTHOR AUTHOR'S ORGANIZ ATION 12/03/2021 [facility] DATE CREATED AUTHOR AUTHOR'S ORGANIZ ATION 02/28/2022 [facility] DATE CREATED AUTHOR AUTHOR'S ORGANIZ ATION 05/13/2023 [facility] DATE CREATED AUTHOR AUTHOR'S ORGANIZ ATION 07/04/2023 [facility] DATE CREATED AUTHOR AUTHOR'S ORGANIZ ATION 07/16/2023 [facility] [facility] DATE CREATED AUTHOR AUTHOR'S ORGANIZ ATION 07/18/2023 [facility] DATE CREATED AUTHOR AUTHOR'S ORGANIZ ATION 08/09/2023 [facility] DATE CREATED AUTHOR AUTHOR'S ORGANIZ ATION 08/11/2023 [facility] DATE CREATED AUTHOR AUTHOR'S ORGANIZ ATION 09/13/2023 [facility] DATE CREATED AUTHOR AUTHOR'S ORGANIZ ATION 10/23/2023 [facility] dical Specialists EPIC REASON FOR VISIT [...] Young MD Other Provider Active Maddie Garcia [facility]- Other Provider Active Team Status: Inactive Member Role Status Reid Day MD Primary Care Provider Active Raifq Bahena DO Emergency Provider Active Ashleigh Cruz MD Admit Provider Active Anna Valladares MD Attending Provider Active Team Status: Inactive Member Role Status Dates Gerry Godwin MD Primary Care Provider Active Shaikh Barb MD Attending Provider Active Team Status: Inactive Member Role Status Dates Shaikh Barb MD Primary Care Provider Active Earline Harris APRN Attending Provider Active Painter Apprentice Relationship Specialty Start Date End Date Gerry Godwin MD [address] [place] [address] PCP - General Family Medicine 04/07/18 Painter Apprentice Relationship Specialty Start Date End Date Shaikh Day MD PCP - General Internal Medicine 08/30/22 Painter Apprentice Relationship Specialty Start Date End Date Gerry Godwin MD [address] [place] [address] PCP - General Family Medicine 04/07/18 Painter Apprentice Relationship Specialty Start Date End Date Gerry Godwin MD [address] [place] [address] PCP - General Family Medicine 04/07/18 Painter Apprentice Relationship Specialty Start Date End Date Gerry Godwin MD [address] [place] [address] PCP - General Family Medicine 04/07/18 Team [...] 2023 Team Status: Inactive Member Role Status Redi Day MD Primary Care Provider Active Start: August 08, 2023 End: August 08, 2023 Denver Juarez MD Attending Provider Active Start: August 08, 2023 End: August 08, 2023 Team Status: Active Member Role Status Reid Day MD Primary Care Provider Active Start: August 08, 2023 Felicita Sumner NP-C Attending Provider Active Start: August [...] BE BASED ON THE PRIMARY CLINICAL RECORDS. [employer] [facility]. provides no warranty or guarantee of the accuracy or completeness of information in this document.
[2023-11-16 10:28] LABS: Bilirubin Urine NEGATIVE (NEGATIVE); Blood Urine NEGATIVE (NEGATIVE); Clarity Urine CLEAR (CLEAR); Color Urine YELLOW (YELLOW); Glucose Urine UA NEGATIVE (NEGATIVE); Ketones Urine NEGATIVE (NEGATIVE); Leukocyte Esterase Urine SMALL (NEGATIVE); Nitrite Urine POSITIVE (NEGATIVE); Protein Urine NEGATIVE (NEG/TRACE); pH Urine 6.5 (5.0-9.0)
[2023-11-16 10:30] LABS: Urine Microscopic Indicated YES
[2023-11-16 11:13] LABS: Bacteria Urine LARGE #/HPF (NONE SEEN); Mucus Urine NONE SEEN (NONE SEEN); RBC Urine NONE SEEN #/HPF (0-2)
[2023-11-16 11:14] LABS: Cast Seen? NONE SEEN #/LPF (NONE SEEN); Crystals Seen? None Seen #/HPF (None Seen); Squamous Epithelial Cell Urine RARE #/LPF (NONE/RARE); Transitional Epi Cells Urine RARE #/LPF (NONE SEEN); Urine Culture Indicated ALREADY ORDERED
== END 2023-11-16 10:08 | disposition home or self-care (01) ==
LOC: LAB 10:07
PROVIDERS: PCP Nurse Practitioner; Visit Provider Nurse Practitioner
DX: R39.9 Unspecified symptoms and signs involving the genitourinary system (principal)
CPT/HCPCS: 81001; 87086; 87150; 87186

== ENCOUNTER 2024-05-12 14:46 | Outpatient (OUT) | payer MEDICARE, SELFPAY ==
[2024-05-12 15:34] LABS: Basophils Absolute Auto 0.1 10^3/uL (0.0-0.1); Basophils Percent Auto 0.9 % (0.2-2.0); Eosinophils Absolute Auto 0.3 10^3/uL (0.0-0.7); Eosinophils Percent Auto 4.3 % (0.9-7.0); Hematocrit 41.9 % (36.0-48.0); Hemoglobin 14.2 g/dL (12.0-16.0); Immature Granulocytes Abs Auto 0.02 10^3/uL (0.00-0.03); Immature Granulocytes Pct Auto 0.3 % (0.0-0.5); Lymphocytes Absolute Auto 1.9 10^3/uL (1.2-3.8); Lymphocytes Percent Auto 25.5 % (20.5-60.0); Mean Corpuscular HGB Conc 33.9 g/dL (29.9-35.2); Mean Corpuscular Hemoglobin 30.7 pg (26.7-34.0); Mean Corpuscular Volume 90.5 fL (81.0-99.0); Mean Platelet Volume 10.7 fL (9.5-13.5); Monocytes Absolute Auto 0.6 10^3/uL (0.3-0.8); Monocytes Percent Auto 8.2 % (1.7-12.0); Neutrophils Absolute Auto 4.5 10^3/uL (1.4-6.5); Neutrophils Percent Auto 60.8 % (43.0-75.0); Platelet Count 145 10^3/uL (150-450); Red Blood Count 4.63 10^6/uL (4.20-5.40); Red Cell Distribution Width 13.3 % (11.0-15.0); White Blood Count 7.5 10^3/uL (4.0-11.0)
[2024-05-12 15:58] LABS: Anion Gap 11.8; BUN Creatinine Ratio 27.6; Calcium 8.8 mg/dL (8.5-10.1); Carbon Dioxide 26.7 mmol/L (21.0-32.0); Chloride 111 mmol/L (98-107); Estimated GFR (African America >60 (>=60 mL/min/1.73m^2); Estimated GFR (Non-African Ame >60 (>=60 mL/min/1.73m^2); Glucose 82 mg/dL (74-106); Potassium 3.5 mmol/L (3.5-5.1); Sodium 146 mmol/L (136-145)
== END 2024-05-12 14:47 | disposition home or self-care (01) ==
LOC: LAB 14:48
PROVIDERS: PCP Nurse Practitioner; Visit Provider Nurse Practitioner
DX: I63.9 Cerebral infarction, unspecified (principal); I10 Essential (primary) hypertension
CPT/HCPCS: 36415; 80048; 85025

== ENCOUNTER 2024-06-24 07:37 | Outpatient (OUT) | payer MEDICARE, SELFPAY ==
--- NOTE | 2024-06-24 08:00 | MR_ITS ---
The [address] [address] Patient Name: FITZ GIFFORD MRN: [id number] date: 1950 Sex: F Assigned Patient Location: LAB Current Patient Location: LAB Accession/Order Number: [id number] Exam Date: 06/24/2024 13:40 Report Date: 06/24/2024 13:48 At the request of: JOSÉ MANUEL MCLEOD NP Procedure: MR head/brain wo/w con MR head/brain wo/w con 06/24/2024 10:33 AM SIGN AND SYMPTOMS: ^Ataxia, Gait Instability, Memory Difficulty, Aphasia PROTOCOL: Multiplanar multisequence MR images of the brain were obtained with and without IV contrast CONTRAST: 14 mL of intravenous Dotarem COMPARISON: None. FINDINGS: Extra axial spaces: Age appropriate. Hemorrhage: None. Ventricular system: There is mild ex vacuo dilatation of the left lateral ventricle. Basal cisterns: Within normal limits and not effaced. Cerebral parenchyma: There is gliosis and encephalomalacia within the lateral aspect of the left temporal lobe and left parietal lobe consistent with a remote infarct. Periventricular white matter T2 and FLAIR hyperintense signal is noted suggesting chronic microvascular ischemic change bilaterally. Remote lacunar infarcts are noted in the head of the right caudate nucleus. No abnormal postcontrast enhancement. Midline shift: None.. Cerebellum: Within normal limits. Brainstem: Within normal limits. OTHER: Calvarium: Normal marrow signal. Vascular system: Satisfactory flow voids within the anterior and posterior circulation. Visualized Paranasal sinuses: Within normal limits. Visualized Orbits: Within normal limits. Visualized upper cervical spine: Within normal limits. Sella and skull base: Within normal limits. MR/MR head/brain wo/w con IMPRESSION: No acute intrarenal pathology or abnormal postcontrast enhancement. There are remote infarcts in the left MCA territory as well as the head of the right caudate nucleus. Additional chronic age-related neurodegenerative changes are noted as above. Impression dictated by: Kobe Sung M.D. 06/24/2024 1:48 PM Dictation Location: [place] [address] Electronically authenticated by: [id number] Y Date: 06/24/2024 13:48
--- NOTE | 2024-06-24 08:00 | MR_ITS ---
The [address] [address] Patient Name: FITZ GIFFORD MRN: [id number] date: 1950 Sex: F Assigned Patient Location: LAB Current Patient Location: LAB Accession/Order Number: [id number] Exam Date: 06/24/2024 11:38 Report Date: 06/24/2024 11:50 At the request of: JOSÉ MANUEL MCLEOD NP Procedure: MR cervical spine wo/w con MR cervical spine wo/w con 06/24/2024 10:33 AM SIGNS AND SYMPTOMS: Ataxia, Gait Instability PROTOCOL: Multiplanar multisequence MR images of the cervical spine were obtained with and without IV contrast CONTRAST: 14 mL of intravenous Dotarem COMPARISON: None. FINDINGS: The bones of the cervical spine are in anatomic alignment. There is preservation of vertebral body heights. There is mild disc height loss at C4-C5. The marrow signal is within normal limits. The cord is normal in signal. No epidural or paraspinous fluid collection is appreciated. The visualized paraspinous soft tissues are within normal limits. The prevertebral soft tissues are within normal limits. No abnormal postcontrast enhancement. At C2-C3: There is a normal disc, central canal, and neural foramen. At C3-C4: There is a normal disc, central canal, and neural foramen. At C4-C5: There is a broad-based disc bulge with facet and operative injection change contributing to mild spinal canal narrowing and mild left neural foraminal narrowing. At C5-C6: There is a normal disc, central canal, and neural foramen. At C6-C7: There is a normal disc, central canal, and neural foramen. At C7-T1: There is a normal disc, central canal, and neural foramen. MR/MR cervical spine wo/w con IMPRESSION: At C4-C5: There is a broad-based disc bulge with facet and operative injection change contributing to mild spinal canal narrowing and mild left neural foraminal narrowing. No cord compression or cord signal abnormality. No abnormal postcontrast enhancement. Impression dictated by: Kobe Sung M.D. 06/24/2024 11:50 AM Dictation Location: [place] [address] Electronically authenticated by: [id number] Y Date: 06/24/2024 11:50
[2024-06-24 08:05] LABS: Estimated GFR (African America >60 (>=60 mL/min/1.73m^2); Estimated GFR (Non-African Ame >60 (>=60 mL/min/1.73m^2)
== END 2024-06-24 07:38 | disposition home or self-care (01) ==
LOC: LAB 07:38
PROVIDERS: PCP Nurse Practitioner; Visit Provider Nurse Practitioner Family
DX: R47.01 Aphasia (principal); R27.0 Ataxia, unspecified; R41.3 Other amnesia; Z86.73 Personal history of transient ischemic attack (TIA), and cerebral 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
CPT/HCPCS: 36415; 70553; 72156; 82565; A9575

== ENCOUNTER 2024-08-06 07:26 | Outpatient (OUT) | payer MEDICARE, SELFPAY ==
--- OUTSIDE RECORDS SUMMARY | 2024-08-06 07:28 | XMS_ITS | Encounter Summary ---
Author Organization [facility] Address [address] [place] [address] Care Team Providers Care Delivery Coordinator Name Role Phone Aleena Collado SPECIALTY DEVELOPMENT CONSULTANT Unavailable [phone] Obed Walls DO Unavailable [phone] Vish Zazueta DO Unavailable Ynes Snyder SPECIALTY DEVELOPMENT CONSULTANT Unavailable [phone] Jessica Ceballos NP Unavailable Unavailable Gerry Godwin MD Primary Care Provider Milton Piña MA Unavailable [phone] Gerry Godwin MD Unavailable Encounter Details Date Type Department Care Team (Late st Contact Info) Description 05/18/2024 Orders Only [facility] [address] [place] [address] Bernice Clemente MD [address] [place] [address] Social History Tobacco Use Types Packs/Day Years Used Date Smoking Tobacco: Former Cigarettes Passive Smoke Exposure: Current Smokeless Tobacco: Never Alcohol Use Standard Drinks/Week Comments Never 0 (1 standard drink = 0.6 oz pur e alcohol) B1300 Health Literacy Answer Date Recor ded How often do you need to hav e someone help you when you read instructions, pamphlets, or other written material from your doctor or pharmacy? Sometimes 01/27/2024 Humiliation, Afraid, Rape, and Kick questionnair e Answer Date Recorded Within the last year, have y ou been afraid of your partner or ex-partner? No 01/27/2024 Within the last year, have y ou been humiliated or emotionally abused in other ways by your partner or ex-partner? No Within the last year, have y ou been kicked, hit, slapped, or otherwise physically hurt by your partner or ex-partner? No 01/27/2024 Within the last year, have y ou been raped or forced to have any kind of sexual activity by your partner or ex-partner? No 01/27/2024 Social Connection and Isolation Panel [NHANES] A nswer Date Recorded In a typical week, how many times do you talk on the phone with family, friends, or neighbors? Once a week 01/27/2024 How often do you get together with friends or re latives? Once a week 01/27/2024 How often do you attend baptist or yazdanism serv ices? Never 01/27/2024 Do you belong to any clubs o r organizations such as baptist groups, unions, fraternal or athletic groups, or school groups? No 01/27/2024 How often do you attend meet ings of the clubs or organizations you belong to? Never 01/27/2024 Are you , , di vorced, , never , or living with a partner? 01/27/2024 AUDIT-C Answer Date Recorded Q1: How often do you have a drink containing alcohol? Never 01/27/2024 Q2: How many drinks containi ng alcohol do you have on a typical day when you are drinking? Patient does not drink Q3: How often do you have si x or more drinks on one occasion? Never 01/27/2024 Overall Financial Resource Strain (CARDIA) Answe r Date Recorded How hard is it for you to pa y for the very basics like food, housing, medical care, and heating? Not hard at all 01/27/2024 PHQ-2 Answer Date Recorded Patient Health Questionnaire-2 Score 0 09/09/2023 [facility] - Occupational Stress Questionnaire Answer Date Recorded Do you feel stress - tense, restless, nervous, or anxious, or unable to sleep at night because your mind is troubled all the time - these days? Not at all 01/27/2024 Exercise Vital Sign Answer Date Recorde d On average, how many days pe r week do you engage in moderate to strenuous exercise (like a brisk walk)? 0 days 01/27/2024 On average, how many minutes do you engage in exercise at this level? 0 min 01/27/2024 Hunger Vital Sign Answer Date Recorded Within the past 12 months, y ou worried that your food would run out before you got the money to buy more. Never true 01/27/20 24 Within the past 12 months, t he food you bought just didn't last and you didn't have money to get more. Never true 01/27/2024 PRAPARE - Transportation Answer Date Re corded In the past 12 months, has l ack of transportation kept you from medical appointments or from getting medications? No 01/11 In the past 12 months, has l ack of transportation kept you from meetings, work, or from getting things needed for daily living? No 01/27/2024 Housing Stability Vital Sign Answer Zurdo e Recorded In the last 12 months, was t here a time when you were not able to pay the mortgage or rent on time? No 01/27/2024 In the past 12 months, how m any times have you moved where you were living? 0 01/27/2024 At any time in the past [address] [facility], were you homeless or living in a alf (including now)? No 01/27/2024 Comments Unknown Sex and Gender Information Value Date Recorded Sex Assigned at Not on file Legal Sex Female 6:38 PM EDT Gender Identity Not on file Sexual Orientation Not on file documented as of this encounter Plan of Treatment Upcoming Encounters Date Type Department Care Team (Late st Contact Info) Description 08/11/2024 9:00 AM EDT Office Visit [facility] [address] [place] [address] Aleena Collado NP [address] [place] [address] documented as of this encounter Procedures Procedure Name Priority Date/Time Associated Diagnosis Comments SCANNED LABS Routine 05/18/2024 10:57 AM EDT documented in this encounter Results * SCANNED LABS (05/18/2024 10:57 AM EDT) Bernice Clemente MD LAB CHG PERFORMABLES Final Res ult documented in this encounter Visit Diagnoses Not on filedocumented in this encounter Additional Health Concerns Assessment Noted Time PHQ-9 Depression Total Score: 0 06/03/19 24 6:24 PM EDT A fall risk assessment has been complete d for the patient 01/27/2024 9:56 AM EST documented as of this encounter Care Teams Delivery Coordinator Relationship Specialty Start Date End Date Gerry Godwin MD [address] [place] [address] PCP - General Family Medicine 12/12/23 Gerry Godwin MD [address] [place] [address] PCP - Donald [place] 04/11/24 Aleena Collado NP [address] [place] [address] Nurse Practitioner Family Medicine 10/03/23 Obed Walls DO [address] [place] [address] Otolaryngology 12/02/23 Vish Zazueta DO [address] [address] Referring Physician Neurology 12/09/23 Ynes Snyder NP [address] [address] Nurse Practitioner Neurology 12/09/23 Jessica Ceballos NP [address] [address] Nurse Practitioner Neurology 12/09/23 Milton Piña MA [address] [place] [address] Family Medicine 01/21/24 documented as of this encounter
--- OUTSIDE RECORDS SUMMARY | 2024-08-06 07:28 | XMS_ITS | Encounter Summary ---
Author Organization [facility] Address [address] [place] [address] Care Team Providers Care Tar Heater Operator Name Role Phone Shaikh PEEWEE Day Primary Care Provider [phone] Shaikh PEEWEE Day Primary Care Provider [phone] Aleena Collado BIOLOGY LECTURER Unavailable [phone] Gerry Godwin MD Primary Care Provider [phone] Shaikh PEEWEE Day Unavailable [phone] Obed Walls W DO Unavailable Unallocated, [facility]oms Provider Primary Care Provi neftali Vish Zazueta DO Unavailable Ynes Snyder BIOLOGY LECTURER Unavailable [phone] Jessica Ceballos BIOLOGY LECTURER Unavailable Unavailable Gerry Godwin MD Primary Care Provider [phone] Milton Piña MA Unavailable [phone] Gerry Godwin MD Unavailable Reason for Visit * Reason Comments Med Refill Encounter Details Date Type Department Care Team (Late st Contact Info) Description 05/03/2023 Refill [facility] [address] [place] [address] Shaikh Day MD [address] [place] [address] Iron deficiency Social History Tobacco Use Types Packs/Day Years Used Date Smoking Tobacco: Former Cigarettes Smokeless Tobacco: Never Alcohol Use Standard Drinks/Week Comments Never 0 (1 standard drink = 0.6 oz pur e alcohol) PHQ-2 Answer Date Recorded Patient Health Questionnaire-2 Score 0 03/06/2023 Comments Unknown Sex and Gender Information Value Date Recorded Sex Assigned at Not on file Legal Sex Female 6:38 PM EDT Gender Identity Not on file Sexual Orientation Not on file documented as of this encounter Miscellaneous Notes * Telephone Encounter - Shaikh Barb MD - 05/06/2023 9:09 AM EDT Approving, but needs appt for additional refills. documented in this encounter Plan of Treatment Upcoming Encounters Date Type Department Care Team (Late st Contact Info) Description 08/11/2024 9:00 AM EDT Office Visit [facility] [address] [place] [address] Aleena Collado BIOLOGY LECTURER [address] [place] [address] documented as of this encounter Visit Diagnoses Diagnosis Iron deficiency Disorders of iron metabolism documented in this encounter Care Teams Tar Heater Operator Relationship Specialty Start Date End Date Shaikh Day MD PCP - General Internal Medicine 08/30/22 05/14/23 Shaikh Day MD [address] [place] [phone] PCP - General Internal Medicine 05/15/23 10/02/23 Gerry Godwin MD [address] [place] [address] PCP - General Family Medicine 10/03/23 12/02/23 Shaikh Day MD [address] [place] [address] PCP - Donald ZARCO 10/13/23 02/11/24 Unallocated, Kristi Nichole MD [address] [place] [address] PCP - General Family Medicine 12/03/23 12/11/23 Gerry Godwin MD [address] [place] [address] PCP - General Family Medicine 12/12/23 Gerry Godwin MD [address] [place] [address] PCP - Donald ZARCO 04/11/24 Aleena Collado NP [address] [place] [address] Nurse Practitioner Family Medicine 10/03/23 Obed Walls DO [address] [place] [address] Otolaryngology 12/02/23 Vish Zazueta DO [address] [address] Referring Physician Neurology 12/09/23 Ynes Snyder NP [address] [address] Nurse Practitioner Neurology 12/09/23 Jessica Ceballos NP [address] [address] Nurse Practitioner Neurology 12/09/23 Milton Piña, HAROLDO [address] [place] [address] Family Medicine 01/21/24 documented as of this encounter
--- OUTSIDE RECORDS SUMMARY | 2024-08-06 07:28 | XMS_ITS | Clinical Summary ---
Author Organization [facility] Address [facility] [place] [address] Care Team Providers Care Template Reproduction Technician Name Role Phone Aneesh Ramirez MD Primary Care Provid er Allergies Active Allergy Reactions Criticality Noted Date Comments Penicillins Rash 02/19/2007 Medications hydrochlorothia zide 25 mg tablet Take 1 tablet by mouth once daily. 0 08/10/2011 Active furosemide (LASIX) 20 mg tablet Take 3 tablets by mouth twice daily. 0 08/10/2011 Active amitriptyline 25 mg tablet Take 1 tablet by mouth daily at bedtime. 0 08/10/2011 Active traMADOL 50 mg tablet Take 1 tablet by mouth twice daily. 0 08/10/2011 Active oxyCODONE-aceta minophen (PERCOCET) 10-325 mg tablet Take 1 tablet by mouth every 6 hours as needed (for pain.). 0 08/10/2011 Active Active Problems Problem Noted Date Diagnosed Date Hypertension 06/22/2009 Reflex sympathetic dystrophy of the lower limb 0 04/09/2007 Knee joint replacement by other means 04/09/2007 Osteoarthrosis, unspecified whether generalized or localized, lower leg 04/09/2007 Contusion of knee 04/09/2007 Tear of medial cartilage or meniscus of knee, cu rrent 04/09/2007 Family History Medical History Relation Comments Ischemic Heart Disease Brother Migraine [Other] Daughter Cancer Father Bone Ischemic Heart Disease Father brain tumor [Other] Maternal Grandmother Cancer Mother Breast with meta stases to brain? Seizures Other grandson and gra nddaughter with seizures Relation Status Comments Brother Daughter Father Maternal Grandmother Mother Other Social History Tobacco Use Types Packs/Day Years Used Date Smoking Tobacco: Former Cigarettes 0 02/11/1979 - 02/11/1989 Comments:SMOKED 1/2 TO 3/4 P ACK OF CIGARETTES DAILY Alcohol Use Standard Drinks/Week Comments No 0 (1 standard drink = 0.6 oz pur e alcohol) Comments No Sex and Gender Information Value Date Recorded Sex Assigned at Not on file Legal Sex Female 9:33 AM EST Gender Identity Not on file Sexual Orientation Not on file Last Filed Vital Signs Vital Sign Reading Time Taken Comments Blood Pressure 126/60 08/10/2011 8:10 AM EDT Pulse 100 08/10/2011 8:10 AM EDT Temperature 37.1 C (98.7 F) 07/01/2009 7:00 AM EDT Respiratory Rate 18 07/01/2009 7:00 AM EDT Oxygen Saturation 99% 07/01/2009 7:00 AM EDT Inhaled Oxygen Concentration - - Weight 96.2 kg (212 lb) 08/10/2011 8:10 AM EDT Height 154.9 cm (5' 1 ) 08/10/2011 8:10 AM EDT Body Mass Index 40.06 08/10/2011 8:10 AM EDT Plan of Treatment Health Maintenance Due Date Last Done Comments Anxiety Screening 1966 Depression Screening 1966 Hepatitis C Screening 1966 DTaP,Tdap,Td Vaccine (1 - Tdap) 06/04/1967 Pneumococcal Vaccine: 50+ (1 of 1 - PCV) 1998 Shingrix Vaccine (1 of 2) 1998 Diabetes Screening 06/29/2012 06/29/2009, 0 06/29/2009, 06/22/2009 Bone Density Screening 2013 RSV Vaccine (1 - 1-dose 75+ series) 06/04/2023 Covid-19 Vaccine ( - season) 2023 Advance Directive Discussion 02/12/2024 Influenza Vaccine (Season Ended) 2024 Medical Devices Implanted Type Area Commercial Lender Device Identifier Shelf Expiration Date Model / Serial / Lot Cement Bone Simplex P W/ Tobramycin 1gm - [id number] Implanted:Qty: 5 on 06/28/2009 at [facility] Cement / Putty [employer] 01/10/2011 [id number] / / [id number] Cement Restrictor Revision [place] - [id number] Implanted:Qty: 1 on 06/28/2009 at [facility] Cement / Putty [facility] [id number] / / Femur Post Aug Traith 5mm Sz 3 - [id number] Implanted:Qty: 1 on 06/28/2009 at [facility] Joint - Knee [facility] 12/08/2013 [id number] / [id number] / [id number] Restrictor Cement W/Insertor - [id number] Implanted:Qty: 1 on 06/28/2009 at [facility] Joint - Knee [facility] [id number] / / Insert Tri Tib Ps X3 Sz3 11mm - [id number] Implanted:Qty: 1 on 06/28/2009 at [facility] Joint - Knee Right: Bone - Knee [facility] 03/06/2014 [id number] / / [id number] Insert Tri Tib Ps X3 Sz3 13mm - [id number] Implanted:Qty: 1 on 06/28/2009 at [facility] Joint - Knee Right: Bone - Knee [facility] 11/11/2013 [id number] / / [id number] Stabilizer Femur Comp Rt Sz 3 - [id number] Implanted:Qty: 1 on 06/28/2009 at [facility] Joint - Knee [facility] 03/10/2014 [id number] / [id number] / XTIX Stem Triath Cemented 15x50 - [id number] Implanted:Qty: 1 on 06/28/2009 at [facility] Joint - Knee [facility] 04/25/2014 [id number] / [id number] / [id number] Stem Triathlon Cement [id number] - [id number] Implanted:Qty: 1 on 06/28/2009 at [facility] Joint - Knee [facility] 05/08/2014 [id number] / [id number] / [id number] Femur Post Aug Traith 5mm Sz 3 - [id number] Implanted:Qty: 1 on 06/28/2009 at [facility] Joint - Knee [employer] [employer] 12/08/2013 [id number] / [id number] / XTAY Femur Distal Aug Rt 15mm Sz 4 - [id number] Implanted:Qty: 1 on 06/28/2009 at [facility] Joint - Knee [facility] 01/14/2012 [id number] / [id number] / [id number] Femur Distal Aug Rt 15mm Sz 4 - [id number] Implanted:Qty: 1 on 06/28/2009 at [facility] Joint Knee [facility] 10/06/2012 [id number] / [id number] / XWDF Baseplate Triathlon Ts Sz3 - [id number] Implanted:Qty: 1 on 06/28/2009 at [facility] Plate [facility] 04/17/2014 [id number] / [id number] / ARYG Procedures Procedure Name Priority Date/Time Associated Diagnosis Comments BASIC METABOLIC PANEL Routine 06/29/2009 12:47 AM EDT from Last 3 Months or Most Recently Relevant to Health Maintenance Results * (ABNORMAL) BASIC METABOLIC PNL (06/29/2009 12:47 AM EDT) Glucose 107(H) 65 - 100 mg/dL [facility] BUN 14 8 - 25 mg/dL [facility] Creatinine 0.53(L) 0.70 - 1.40 mg/dL [facility] Sodium 140 132 - 148 mmol/L [facility] Potassium 4.0 3.5 - 5.0 mmol/L [facility] Chloride 108 98 - 110 mmol/L [facility] CO2 22(L) 23 - 32 mmol/L [facility] Anion Gap 10 0 - 15 mmol/L [facility] Calcium 7.6(L) 8.5 - 10.5 mg/dL [facility] Blood specimen (specimen) BLOOD SPECIMEN / Unknown 06/29/2009 12:47 AM EDT Jimy Wan MD LABORATORY Final Result [facility] [address] [place] [address] from Last 3 Months or Most Recently Relevant to Health Maintenance Care Teams Template Reproduction Technician Relationship Specialty Start Date End Date Aneesh Ramirez MD [address] [place] [phone] PCP - General 07/24/07
--- OUTSIDE RECORDS SUMMARY | 2024-08-06 07:28 | XMS_ITS | Encounter Summary ---
Author Organization [facility] Address [address] [place] [place] [address] Care Team Providers Care Oil Rig Driller Name Role Phone Aleena Collado SCHEDULER CONVEYOR Unavailable [phone] Obed Walls DO Unavailable [phone] Vish Zazueta DO Unavailable [phone] Ynes Snyder NP Unavailable [phone] Jessica Ceballos NP Unavailable Unavailable Gerry Godwin MD Primary Care Provider [phone] Milton Piña MA Unavailable [phone] Gerry Godwin MD Unavailable Encounter Details Date Type Department Care Team (Late st Contact Info) Description 02/20/2024 Orders Only [facility] [address] [place] [address] Aleena Collado NP [address] [place] [address] Social History Tobacco Use Types Packs/Day Years [...] week 01/27/2024 How often do you attend methodist or oriental orthodox serv ices? Never 01/27/2024 Do you belong to any clubs o r organizations such as methodist groups, unions, fraternal or athletic groups, or [...] Recorded Patient Health Questionnaire-2 Score 0 09/09/2023 [facility] of Occupat ional Health - Occupational Stress [...] any time in the past 12 m [facility], were you homeless or living in a halfway (including now)? No 01/27/2024 Comments Unknown Sex [...] Visit [facility] [address] [place] [address] Aleena Collado NP [address] [place] [address] documented as of this encounter Procedures Procedure Name Priority Date/Time Associated Diagnosis Comments SCANNED LABS Routine 02/20/2024 3:13 PM EST documented in this encounter Results * SCANNED LABS (02/20/2024 3:13 PM EST) Aleena Collado SCHEDULER CONVEYOR LAB CHG PERFORMABLES Final Resu lt documented in this encounter Visit Diagnoses Not on filedocumented in this encounter Additional Health Concerns Assessment Noted Time PHQ-9 Depression Total Score: 0 06/03/19 24 6:24 PM EDT A fall risk assessment has been complete d for the patient 01/27/2024 9:56 AM EST documented as of this encounter Care Teams Oil Rig Driller Relationship Specialty Start Date End Date Gerry Godwin MD [address] [place] [address] PCP - General Family Medicine 12/12/23 Gerry Godwin MD [address] [place] [address] PCP - Donald [place] 04/11/24 Aleena Collado NP [address] [place] [address] Nurse Practitioner Family Medicine 10/03/23 Obed Walls DO [address] [place] [address] Otolaryngology 12/02/23 Vish Zazueta DO [address] [address] Referring Physician Neurology 12/09/23 Ynes Snyder NP [address] [address] Nurse Practitioner Neurology 12/09/23 Jessica Ceballos NP [address] [address] Nurse Practitioner Neurology 12/09/23 Milton Piña, HAROLDO [address] [place] [address] Family Medicine 01/21/24 documented as of this encounter
--- OUTSIDE RECORDS SUMMARY | 2024-08-06 07:28 | XMS_ITS | Encounter Summary ---
Author Organization [facility] Address [address] [place] [address] Care Team Providers Care Jingle Writer Name Role Phone Shaikh PEEWEE Day Primary Care Provider [phone] Shaikh PEEWEE Day Primary Care Provider [phone] Aleena Collado MOCK UP BUILDER Unavailable [phone] Gerry Godwin MD Primary Care Provider [phone] Shaikh PEEWEE Day Unavailable [phone] LexiObed heath Tye DO Unavailable Unallocated, [facility] Provider Primary Care Provi neftali Vish Zazueta DO Unavailable Ynes Snyder MOCK UP BUILDER Unavailable [phone] Jessica Ceballos MOCK UP BUILDER Unavailable Unavailable Gerry Godwin MD Primary Care Provider [phone] Milton Piña MA Unavailable [phone] Gerry Godwin MD Unavailable Encounter Details Date Type Department Care Team (Late st Contact Info) Description 03/05/2023 Abstract [facility] [address] [place] [address] Shaikh Day MD [address] [place] [address] Social History Tobacco Use Types Packs/Day Years [...] on file documented as of this encounter Functional Status * Over the past 2 weeks, how often have you been bothered by any of the following problems? Question Answer Date of Assessment Author Little interest or pleasure in doing things Not at all 03/06/2023 1:28 PM Milton Haines M A Feeling down, depressed, or hopeless Not at all 03/06/2023 1:28 PM Milton Haines M A Patient Health Questionnaire -2 Score 0 03/06/2023 1:28 PM Milton Haines M A documented as of this encounter Plan of Treatment Upcoming Encounters Date Type Department Care Team (Late st Contact Info) Description 08/11/2024 9:00 AM EDT Office Visit [facility] [address] [place] [address] Aleena Collado NP [address] [place] [address] documented as of this encounter Visit Diagnoses Not on filedocumented in this encounter Care Teams Jingle Writer Relationship Specialty Start Date End Date Shaikh Day MD PCP - General Internal Medicine 08/30/22 05/14/23 Shaikh Day MD [address] [place] [id number] PCP - General Internal Medicine 05/15/23 10/02/23 Gerry Godwin MD [address] [place] [address] PCP - General Family Medicine 10/03/23 12/02/23 Shaikh Day MD [address] [place] [address] PCP - Donald ZARCO 10/13/23 02/11/24 Unallocated, Kristi Nichole MD [address] [place] [address] PCP - General Family Medicine 12/03/23 12/11/23 Gerry Godwin MD [address] [place] [address] PCP - General Family Medicine 12/12/23 Gerry Godwin MD [address] [place] [address] PCP - Donald ZARCO 04/11/24 Aleena Collado NP [address] [place] [address] Nurse Practitioner Family Medicine 10/03/23 Obed Walls DO [address] [place] [address] Otolaryngology 12/02/23 Vish Zazueta DO [address] [address] Referring Physician Neurology 12/09/23 Ynes Snyder NP [address] [address] Nurse Practitioner Neurology 12/09/23 Jessica Ceballos NP [address] [place] [address] [place] [address] Nurse Practitioner Neurology 12/09/23 Milton Piña, HAROLDO [address] [place] [address] Family Medicine 01/21/24 documented as of this encounter
--- OUTSIDE RECORDS SUMMARY | 2024-08-06 07:28 | XMS_ITS | Encounter Summary ---
Author Organization [facility] Address [address] [place] [address] Care Team Providers Care Scrap Charger Name Role Phone Shaikh PEEWEE Day Primary Care Provider [phone] Shaikh PEEWEE Day Primary Care Provider [phone] Aleena Collado QUICKBOOKS BOOKKEEPER Unavailable [phone] Gerry Godwin MD Primary Care Provider [phone] Shaikh PEEWEE Day Unavailable [phone] Obed Walls Tye DO Unavailable [phone] Unallocated, [facility] Provider Primary Care Provi neftali Vish Zazueta DO Unavailable Ynes Snyder QUICKBOOKS BOOKKEEPER Unavailable [phone] Jessica Ceballos QUICKBOOKS BOOKKEEPER Unavailable Unavailable Gerry Godwin MD Primary Care Provider [phone] Milton Piña MA Unavailable [phone] Gerry Godwin MD Unavailable Encounter Details Date Type Department Care Team (Late st Contact Info) Description 03/18/2023 Orders Only [facility] [address] [place] [address] Shaikh Day MD [address] [place] [address] Social History Tobacco Use Types Packs/Day Years [...] Visit [facility] [address] [place] [address] Aleena Collado NP [address] [place] [address] documented as of this encounter Procedures Procedure Name Priority Date/Time Associated Diagnosis Comments MRI BRAIN W & WO CONT Routine 11/22/2022 10:28 AM EDT documented in this encounter Results * MRI BRAIN W & WO CONT (11/22/2022 10:28 AM EDT) Anatomical Region Laterality Modality Radiographic Alanis ging us Shaikh Barb VIDES IMG XR PROCEDURES Final Result documented in this encounter Visit Diagnoses Not on filedocumented in this encounter Care Teams Scrap Charger Relationship Specialty Start Date End Date Shaikh Day MD PCP - General Internal Medicine 08/30/22 05/14/23 Shaikh Day MD [address] [place] [address] PCP - General Internal Medicine 05/15/23 10/02/23 Gerry Godwin MD [address] [place] [address] PCP - General Family Medicine 10/03/23 12/02/23 Shaikh Day MD [address] [place] [address] PCP - Donald ZARCO 10/13/23 02/11/24 Unallocated, Kristi Nichole MD [address] [place], [place] [address] PCP - General Family Medicine 12/03/23 12/11/23 Gerry Godwin MD [address] [place] [address] PCP - General Family Medicine 12/12/23 Gerry Godwin MD [address] [address] PCP - Donald ZARCO 04/11/24 Aleena Collado NP [address] [place] [address] Nurse Practitioner Family Medicine 10/03/23 Obed Walls DO [address] [place] [address] Otolaryngology 12/02/23 Vish Zazueta DO [address] [address] Referring Physician Neurology 12/09/23 Ynes Snyder NP [address] [address] Nurse Practitioner Neurology 12/09/23 Jessica Ceballos NP [address] [address] Nurse Practitioner Neurology 12/09/23 Milton Piña, HAROLDO [address] [place] [address] Family Medicine 01/21/24 documented as of this encounter
--- OUTSIDE RECORDS SUMMARY | 2024-08-06 07:28 | XMS_ITS | Encounter Summary ---
Author Organization [facility] Address [address] [place] [address] Care Team Providers Care Paper Gluing Operator Name Role Phone Aleena Collado WELT POCKET MACHINE OPERATOR Unavailable [phone] Obed Walls DO Unavailable Vish Zazueta DO Unavailable Ynes Snyder WELT POCKET MACHINE OPERATOR Unavailable [phone] Jessica Ceballos NP Unavailable Unavailable Gerry Godwin MD Primary Care Provider Milton Piña MA Unavailable [phone] Gerry Godwin MD Unavailable Encounter Details Date Type Department Care Team (Late st Contact Info) Description 07/29/2024 Patient Outreach [facility] [address] [place] [address] Milton Piña MA [address] [address] Social History Tobacco Use Types Packs/Day Years [...] week 01/27/2024 How often do you attend gnosticist or taoism serv ices? Never 01/27/2024 Do you belong to any clubs o r organizations such as gnosticist groups, unions, fraternal or athletic groups, or [...] Recorded Patient Health Questionnaire-2 Score 0 09/09/2023 [facility] of Occupat ional Health - Occupational Stress [...] any time in the past 12 m [facility], were you homeless or living in a chcf (including now)? No 01/27/2024 Comments Unknown Sex and Gender Information Value Date Recorded Sex Assigned at Not on file Legal Sex Female 6:38 PM EDT Gender Identity Not on file Sexual Orientation Not on file documented as of this encounter Progress Notes * Milton Piña MA - 07/29/2024 12:54 PM EDT Pt contacted for monthly outreach. Pt said she hasn't heard from the hospital to schedule her ECHO that Dr Carrillo ordered and it's been over a week. Insurance Claims Examiner called Scheduling at [facility] and spoke with Carrol. She verified they did receive the order and Blanca is working on it. Prior Auth submitted toinsurance and they required additional documentation. She said Donald typically is about 7 to 10 days for authorization. Insurance Claims Examiner will call back on Saturday to get update on authorization as I am out of the office on Saturday. They also received the order for the Lexiscan as well and also are awaiting a prior auth on that. Insurance Claims Examiner returned call to pt and informed her, She voiced understanding. She said she also has a bladder scan that [facility] ordered on 08/18. She is hoping to get some answers from this. She still cont to experience incontinence with frequent burning and UTIs. When asked if she scheduled with the new urologist, pt said she decided to stick with [facility] for now and see what this upcoming test shows. Pt also said the urologist also sent in two new medications for her but they are over $500, so she isn't able to get those. She did say the urologist did mention that they may be costly and if she wasn't able to get them it was okay. Pt denies any further needs and I will call her back on Saturday with update on PA status for her. Ptvoiced understanding. documented in this encounter Plan of Treatment Upcoming Encounters Date Type Department Care Team (Late st Contact Info) Description 08/11/2024 9:00 AM EDT Office Visit [facility] [address] [place] [address] Aleena Collado NP [address] [place] [address] documented as of this encounter Visit Diagnoses Diagnosis Primary hypertension- Primary Unspecified essential hypertension Anxiety and depression Chronic heart failure, unspecified heart failure type (HCC) documented in this encounter Additional Health Concerns Assessment Noted Time PHQ-9 Depression Total Score: 0 06/03/19 24 6:24 PM EDT A fall risk assessment has been complete d for the patient 01/27/2024 9:56 AM EST documented as of this encounter Care Teams Paper Gluing Operator Relationship Specialty Start Date End Date Gerry Godwin MD [address] [place] [address] PCP - General Family Medicine 12/12/23 Gerry Godwin MD [address] [place] [address] PCP - Donald ZARCO 04/11/24 Aleena Collado NP [address] [place] [address] Nurse Practitioner Family Medicine 10/03/23 Obed Walls DO [address] [place] [address] Otolaryngology 12/02/23 Vish Zazueta DO [address] [address] Referring Physician Neurology 12/09/23 Ynes Snyder NP [address] [address] Nurse Practitioner Neurology 12/09/23 Jessica Ceballos NP [address] [address] Nurse Practitioner Neurology 12/09/23 Milton Piña MA [address] [place] [address] Family Medicine 01/21/24 documented as of this encounter
--- OUTSIDE RECORDS SUMMARY | 2024-08-06 07:28 | XMS_ITS | Encounter Summary ---
Author Organization [facility] Address [address] [place] [address] Care Team Providers Care Breakfast Cook Name Role Phone Aleena Collado FRONT END SOFTWARE ENGINEER Unavailable [phone] Obed Walls DO Unavailable [phone] Vish Zazueta DO Unavailable Ynes Snyder FRONT END SOFTWARE ENGINEER Unavailable [phone] Jessica Ceballos NP Unavailable Unavailable Gerry Godwin MD Primary Care Provider Milton Piña MA Unavailable [phone] Gerry Godwin MD Unavailable Encounter Details Date Type Department Care Team (Late st Contact Info) Description 02/24/2024 Orders Only [facility] [address] [place] [address] Stella Christensen NP Social History Tobacco Use Types Packs/Day Years [...] week 01/27/2024 How often do you attend lutheran or mosque serv ices? Never 01/27/2024 Do you belong to any clubs o r organizations such as lutheran groups, unions, fraternal or athletic groups, or [...] Recorded Patient Health Questionnaire-2 Score 0 09/09/2023 [facility] of Occupat ional Health - Occupational Stress [...] any time in the past 12 m [facility], were you homeless or living in a half-way (including now)? No 01/27/2024 Comments Unknown Sex [...] Visit [facility] [address] [place] [address] Aleena Collado NP [address] [place] [address] documented as of this encounter Visit Diagnoses Not on filedocumented in this encounter Additional Health Concerns Assessment Noted Time PHQ-9 Depression Total Score: 0 06/03/19 24 6:24 PM EDT A fall risk assessment has been complete d for the patient 01/27/2024 9:56 AM EST documented as of this encounter Care Teams Breakfast Cook Relationship Specialty Start Date End Date Gerry Godwin MD [address] [place] [address] PCP - General Family Medicine 12/12/23 Gerry Godwin MD [address] [place] [address] PCP - Donald ZARCO 04/11/24 Aleena Collado NP [address] [place] [address] Nurse Practitioner Family Medicine 10/03/23 Obed Walls DO [address] [place] [address] Otolaryngology 12/02/23 Vish Zazueta DO [address] [address] Referring Physician Neurology 12/09/23 Ynes Snyder NP [address] [address] Nurse Practitioner Neurology 12/09/23 Jessica Ceballos NP [address] [address] Nurse Practitioner Neurology 12/09/23 Milton Piña MA [address] [place] [address] Family Medicine 01/21/24 documented as of this encounter
--- OUTSIDE RECORDS SUMMARY | 2024-08-06 07:28 | XMS_ITS | Clinical Summary ---
Author Organization [facility] Address [address] [place] [address] Phone Care Team Providers Care Sql Programmer Analyst Name Role Phone Unavailable Primary Care Provider Unavailabl e Social History Tobacco Use Types Packs/Day Years Used Date Smoking Tobacco: Never Assessed Comments Unknown Sex and Gender Information Value Date Recorded Sex Assigned at Not on file Legal Sex Female 9:42 AM EST Gender Identity Not on file Sexual Orientation Not on file Plan of Treatment Health Maintenance Due Date Last Done Comments Bone Density Scan 1948 Lipid Panel 1948 Skin Cancer Screening 1948 Yearly Adult Physical 1948 Hepatitis C Screening 1966 DTaP/Tdap/Td Vaccines (1 - Tdap) 1970 Pneumococcal Vaccine (1 of 1 - PCV) 1998 Zoster Vaccines (1 of 2) 1998 RSV High Risk: (Elderly (60+ ) or Population) (1 - 1-dose 75+ series) 06/04/2023 COVID-19 Vaccine ( - 2023-2 5 season) 2023 Influenza Vaccine (Season Ended) 2024 HIB Vaccines Aged Out No longer eligi ble based on patient's age to complete this topic HPV Vaccines (No Doses Required) Completed Hepatitis A Vaccines Aged Out No long er eligible based on patient's age to complete this topic Hepatitis B Vaccines Aged Out No long er eligible based on patient's age to complete this topic IPV Vaccines Aged Out No longer eligi ble based on patient's age to complete this topic Meningococcal Vaccine Aged Out No sandra ashlie eligible based on patient's age to complete this topic Rotavirus Vaccines Aged Out No longer eligible based on patient's age to complete this topic
--- OUTSIDE RECORDS SUMMARY | 2024-08-06 07:28 | XMS_ITS | Encounter Summary ---
Author Organization [facility] Address [id number] [address] [place] [address] Care Team Providers Care Clinical Unit Educator Name Role Phone Gerry Godwin MD Primary Care Provider [phone] Encounter Details Date Type Department Care Team (Late st Contact Info) Description 03/06/2023 Orders Only [facility] [address] [place] [address] Transcribe, Orders Support User Pain (Primary Dx) Social History Tobacco Use Types Packs/Day Years Used Date Smoking Tobacco: Former Cigarettes Smokeless Tobacco: Never Alcohol Use Standard Drinks/Week Comments No 0 (1 standard drink = 0.6 oz pur e alcohol) AUDIT-C Answer Date Recorded Frequency of Alcohol Consumption Never 04/05/2018 Average Number of Drinks Not on file 019 Frequency of Binge Drinking Not on file 03/15 PHQ-2 Answer Date Recorded Total Score 2 08/25/2018 Childcare Answer Date Recorded Childcare Unknown 07/16/2018 Employment Answer Date Recorded Employment Unknown 07/16/2018 Purpose - Life Answer Date Recorded Purpose and direction in life Unknown Comments No Sex and Gender Information Value Date Recorded Sex Assigned at Not on file Legal Sex Female 8:14 AM EST Gender Identity Not on file Sexual Orientation Not on file documented as of this encounter Plan of Treatment Not on file documented as of this encounter Goals Goal Patient Goal Type Associated Problems Recent Progress Patient-Stated? Author safe discharge home General Yes Bryanna Osorio, LESTER Note: Evaluation of progress towards goal: return home with self care and family support safe discharge home General Yes Bryanna Osorio, RN Note: Evaluation of progress towards goal: Return home with self care and family support and resume outpatient therapy. documented as of this encounter Results * X-ray spine lumbar 2 or 3 views (03/01/2023 3:30 PM EST) us Scanning Provider External IMG DIAGNOSTIC IMAGIN G ORDERABLES Final Result * MR brain without contrast (03/01/2023 3:00 PM EST) us Scanning Provider External IMG MRI ORDERABLES Fi nal Result * CT angiogram carotid (03/01/2023 9:30 AM EST) us Scanning Provider External IMG CT ORDERABLES Fin al Result * X-ray chest 1 view (03/01/2023 9:20 AM EST) us Scanning Provider External IMG DIAGNOSTIC IMAGIN G ORDERABLES Final Result documented in this encounter Visit Diagnoses Diagnosis Pain- Primary Generalized pain documented in this encounter Additional Health Concerns Assessment Noted Time PHQ-9 Depression Total Score: 2 08/26/19 19 3:00 PM EDT documented as of this encounter Care Teams Clinical Unit Educator Relationship Specialty Start Date End Date Gerry Godwin MD PCP - General Family Medicine 04/07/18 documented as of this encounter
--- OUTSIDE RECORDS SUMMARY | 2024-08-06 07:28 | XMS_ITS | Encounter Summary ---
Author Organization [facility] Address [id number] [address] [place] [address] Care Team Providers Care Wine Steward/Stewardess Name Role Phone Gerry Godwin MD Primary Care Provider [phone] Encounter Details Date Type Department Care Team (Late st Contact Info) Description 03/03/2023 Orders Only [facility] [place] [address] External, Scanning Provider Pain (Primary Dx) Social History Tobacco Use [...] RN Note: Evaluation of progress towards goal: return home with self care and family support safe discharge home General Yes Bryanna Osorio, RN Note: Evaluation of progress towards goal: Return home with self care and family support and resume outpatient therapy. documented as of this encounter Results * CT angiogram head (03/01/2023 9:20 AM EST) us Scanning Provider External IMG CT ORDERABLES Fin al Result * CT brain without contrast stroke alert (03/01/2023 9:15 AM EST) us Scanning Provider External IMG CT ORDERABLES Fin al Result documented in this encounter Visit Diagnoses Diagnosis Pain- Primary Generalized pain documented in this encounter Additional Health Concerns Assessment Noted Time PHQ-9 Depression Total Score: 2 08/26/19 19 3:00 PM EDT documented as of this encounter Care Teams Wine Steward/Stewardess Relationship Specialty Start Date End Date Gerry Godwin MD PCP - General Family Medicine 04/07/18 documented as of this encounter
--- OUTSIDE RECORDS SUMMARY | 2024-08-06 07:28 | XMS_ITS | Encounter Summary ---
Author Organization [facility] Address [address] [place] [address] Care Team Providers Care Collar Setter Overlock Name Role Phone Aleena Collado SUPPLIES PACKER Unavailable [phone] Obed Walls DO Unavailable Vish Zazueta DO Unavailable Ynes Snyder SUPPLIES PACKER Unavailable Jessica Ceballos NP Unavailable Unavailable Gerry Godwin MD Primary Care Provider Milton Piña MA Unavailable [phone] Gerry Gowdin MD Unavailable Encounter Details Date Type Department Care Team (Late st Contact Info) Description 05/11/2024 Orders Only [facility] [address] [place] [address] Bernice Clemente MD [address] [place] [address] Social History Tobacco Use Types [...] week 01/27/2024 How often do you attend hindu or presybeterian serv ices? Never 01/27/2024 Do you belong to any clubs o r organizations such as hindu groups, unions, fraternal or athletic groups, or [...] Recorded Patient Health Questionnaire-2 Score 0 09/09/2023 [facility] - Occupational [...] in the past 12 m [facility], were you homeless or living in a snf (including now)? No 01/27/2024 Comments Unknown Sex [...] Visit [facility] [address] [place] [address] Aleena Collado NP [address] [place] [address] documented as of this encounter Procedures Procedure Name Priority Date/Time Associated Diagnosis Comments URINE CULTURE Routine 05/11/2024 2:05 PM EDT documented in this encounter Results * URINE CULTURE (05/11/2024 2:05 PM EDT) Bernice Clemente MD LAB BLOOD ORDERABLES Final Res ult documented in this encounter Visit Diagnoses Not on filedocumented in this encounter Additional Health Concerns Assessment Noted Time PHQ-9 Depression Total Score: 0 06/03/19 24 6:24 PM EDT A fall risk assessment has been complete d for the patient 01/27/2024 9:56 AM EST documented as of this encounter Care Teams Collar Setter Overlock Relationship Specialty Start Date End Date Gerry Godwin MD [address] [place] [address] PCP - General Family Medicine 12/12/23 Gerry Gdowin MD [address] [place] [address] PCP - Donald [place] 04/11/24 Aleena Collado NP [address] [place] [address] Nurse Practitioner Family Medicine 10/03/23 Obed Walls DO [address] [place] [address] Otolaryngology 12/02/23 Vish Zazueta DO [address] [address] Referring Physician Neurology 12/09/23 Ynes Snyder NP [address] [address] Nurse Practitioner Neurology 12/09/23 Jessica Ceballos NP [address] [address] Nurse Practitioner Neurology 12/09/23 Milton Piña MA [address] [place] [address] Family Medicine 01/21/24 documented as of this encounter
--- OUTSIDE RECORDS SUMMARY | 2024-08-06 07:28 | XMS_ITS | Encounter Summary ---
Author Organization [facility] Address [address] [place] [address] Care Team Providers Care Financial Advocate Name Role Phone Shaikh PEEWEE Day Primary Care Provider [phone] Shaikh PEEWEE Day Primary Care Provider [phone] Aleena Collado PUNCHBOARD STUFFER Unavailable [phone] Gerry Godwin MD Primary Care Provider [phone] Shaikh PEEWEE Day Unavailable [phone] Obed Walls Tye DO Unavailable Unallocated, [facility] Provider Primary Care Provi neftali Vish Zazueta DO Unavailable Ynes Snyder PUNCHBOARD STUFFER Unavailable [phone] Jessica Ceballos PUNCHBOARD STUFFER Unavailable Unavailable Gerry Godwin MD Primary Care Provider [phone] Milton Piña MA Unavailable [phone] Gerry Godwin MD Unavailable Encounter Details Date Type Department Care Team (Late st Contact Info) Description 04/03/2023 Orders Only [facility] [address] [place] [address] Shaikh Day MD [address] [place] [address] Anxiety and depression Social History Tobacco Use Types Packs/Day Years [...] 9:00 AM EDT Office Visit [facility] [address] [place] [address] Aleena Collado NP [address] [place] [address] documented as of this encounter Visit Diagnoses Diagnosis Anxiety and depression documented in this encounter Care Teams Financial Advocate Relationship Specialty Start Date End Date Shaikh Day MD PCP - General Internal Medicine 08/30/22 05/14/23 Shaikh Day MD [address] [place] [address] PCP - General Internal Medicine 05/15/23 10/02/23 Gerry Godwin MD [address] [place] [address] PCP - General Family Medicine 10/03/23 12/02/23 Shaikh Day MD [address] [place] [address] PCP - Donald ZARCO 10/13/23 02/11/24 Unallocated, Kristi Nichole MD [address] [place] [address] PCP - General Family Medicine 12/03/23 12/11/23 Gerry Godwin MD [address] [place] [address] PCP - General Family Medicine 12/12/23 Gerry Godwin MD [address] [place] [address] PCP - Donald ZARCO 04/11/24 Aleena Collado NP [address] [place] [address] Nurse Practitioner Family Medicine 10/03/23 Obed Walls DO [address] [place] [address] Otolaryngology 12/02/23 Vish Zazueta DO [address] [address] Referring Physician Neurology 12/09/23 Ynes Snyder, SANDRA [address] [address] Nurse Practitioner Neurology 12/09/23 Jessica Ceballos NP [address] [address] Nurse Practitioner Neurology 12/09/23 Milton Piña MA [address] [place] [address] Family Medicine 01/21/24 documented as of this encounter
--- OUTSIDE RECORDS SUMMARY | 2024-08-06 07:28 | XMS_ITS | Encounter Summary ---
Author Organization [facility] Address [address] [place] [address] Care Team Providers Care Sustainable Design Coordinator Name Role Phone Shaikh PEEWEE Day Primary Care Provider [phone] Shaikh PEEWEE Day Primary Care Provider [phone] Aleena Collado PRESS ASSISTANT AND FEEDER Unavailable [phone] Gerry Godwin MD Primary Care Provider [phone] Shaikh PEEWEE Day Unavailable [phone] Obed Walls DO Unavailable Unallocated, [facility]oms Provider Primary Care Provi neftali Vish Zazueta DO Unavailable Ynes Snyder PRESS ASSISTANT AND FEEDER Unavailable [phone] Jessica Ceballos NP Unavailable Unavailable Gerry Godwin MD Primary Care Provider [phone] Milton Piña MA Unavailable [phone] Gerry Godwin MD Unavailable Encounter Details Date Type Department Care Team (Late st Contact Info) Description 03/01/2023 Clinisync Result Encounter [facility] External Department Unsolicited Provider, Generic External Data Social History Tobacco Use Types Packs/Day Years Used Date Smoking Tobacco: Former Cigarettes Smokeless Tobacco: Never Alcohol Use Standard Drinks/Week Comments Never 0 (1 standard drink = 0.6 oz pur e alcohol) Comments Unknown Sex and Gender Information Value Date Recorded Sex Assigned at Not on file Legal Sex Female 6:38 PM EDT Gender Identity Not on file Sexual Orientation Not on file documented as of this encounter Plan of Treatment Upcoming Encounters Date Type Department Care Team (Late st Contact Info) Description 08/11/2024 9:00 AM EDT Office Visit [facility] [address] [place] [address] Aleena Collado NP [address] [place] [address] documented as of this encounter Procedures Procedure Name Priority Date/Time Associated Diagnosis Comments ECHOCARDIOGRAM 2D COMPLETE 03/01/2023 6:27 PM EST documented in this encounter Results * Echocardiogram 2D complete (03/01/2023 6:27 PM EST) Anatomical Region Laterality Modality Ultrasound 03/01/2023 6:27 PM EST Narrative 03/01/2023 6:29 [place] [address] Cardiology Report Signed Patient: OZZIE GIFFORD MR#: [id number] : 1950 Acct:[id number] Age/Sex: 72 / F ADM Date: 03/01/23 Loc: CARD Attending Dr: DIANA FONSECA Ordering Physician: DIANA FONSECA Date of Service: 03/01/23 Procedure(s): CA echo w/ con Accession Number(s): [id number] cc: DIANA FONSECA Shaikh M.D. Patient Name: OZZIE GIFFORD MR#: [id number] : 1950 Exam Date: 03/01/2023 Ordering Doctor: DIANA FONSECA ECHOCARDIOGRAM REPORT PROCEDURE: CA ECHO W/ CON INDICATIONS: CVA, hypertension, loop recorder, dyspnea on exertion, edema COMPARISON: None. DESCRIPTION: COMPLETE ECHOCARDIOGRAM Real-time transthoracic echocardiography with 2D, M-mode, spectral and color flow Doppler performed. QUALITY: Technical quality was good. 61 , 134#, BSA 1.59 m2 LEFT VENTRICLE: Normal chamber size. Normal left ventricular wall thickness. Normal systolic function. LV EF: Normal left ventricular ejection fraction, (65%). DIASTOLIC: Normal diastolic function. ATRIAL SEPTUM: Intact atrial septum. Agitated saline contrast does not reveal an intra-cardiac shunt. LEFT ATRIUM: Normal chamber size. RIGHT ATRIUM: Normal chamber size. RIGHT VENTRICLE: Normal chamber size. Normal right ventricular systolic function. TRICUSPID VALVE: Normal mobility and thickness. No stenosis with trivial regurgitation. No evidence of pulmonary hypertension. RVSP 31 mmHg MITRAL VALVE: Mildly thickened with normal mobility. No evidence of mitral valve stenosis. Mild mitral annular calcification. Trivial mitral regurgitation. AORTIC VALVE: Normal trileaflet appearance. Thickened aortic valve. Normal leaflet mobility. No evidence of aortic valve stenosis. No aortic regurgitation. AORTIC ROOT: PULMONIC VALVE: Not well visualized. No stenosis. No regurgitation. PERICARDIUM: No evidence of pericardial effusion. IVC: Collapses with inspirations. IVC is normal in size. PLEURA: CONCLUSION: 1. Normal ventricular function. LVEF is 65%. 2. No significant valvular dysfunction. 3. Normal right-sided pressures. 4. No evidence of intracardiac shunt by agitated saline injections. Adult Echocardiography Procedure Report Left Ventricle LVEDD (3.7 - 5.6 cm): 3.37 cm LVESD (2.2 - 4.0 cm): 2.41 cm LVIVS thickness (0.6 - 1.2 cm): 0.92 cm LVPW thickness (0.5 - 1.0 cm): 0.81 cm e': 0.08 m/s E - e': 7.85 LVOT Max Gradient: 3.33 mm[Hg] LVOT Area (cm2): 0.91 m/s Peak Velocity (LVOT): 0.91 m/s Mean Velocity (LVOT): 0.59 m/s LVOT Diameter 1.82 cm Left Atrium LA Volume Index (2D A2C): 29.34 ml/m2 Left Atrium Systolic Dimension: 2.73 cm Mitral Valve MV E to A Ratio: 0.75 Mitral Valve A-Wave Peak Velocity: 0.80 m/s Mitral Valve E-Wave Peak Velocity: 0.60 m/s Right Ventricle Aorta AO Root Diam: 2.17 cm Aortic Valve AoV Area (Peak Shen): 2.58 cm2, 2.58 cm2 AoV Area (VTI): 2.80 cm2, 2.80 cm2 Peak Velocity(Antegrade Flow): 0.92 m/s Peak Gradient(Antegrade Flow): 3.37 mm[Hg] Mean Velocity(Antegrade Flow): 0.69 m/s Mean Gradient(Antegrade Flow): 2.03 mm[Hg] Velocity Time Integral: 24.83 cm Tricuspid Valve Peak Velocity (Regurgitant Flow): 2.66 m/s, 2.68 m/s Pulmonic Valve Peak Velocity: 0.77 m/s Peak Gradient: 2.38 mm[Hg], 2.38 mm[Hg] Right Atrium Right Atrium Systolic Pressure: 29.95 ml, 29.95 ml Dictated by: Nicolas Salvador M.D. on 03/01/2023 at 18:22 Approved by: Nicolas Salvador M.D. on 03/01/2023 at 18:27 Dictated By: NICOLAS SALVADOR Signed By: 03/01/231828 DD/ 26 TD/TT: Rehabilitation Tech: Procedure Note Radiology, Radiologist, MD - 03/01/2023 [place] [address] Cardiology Report Signed Patient: OZZIE GIFFORD BMR#: [id number] : 1950cct:[id number] Age/Sex: 72 / FADM Date: 03/01/23 Loc: CARD Attending Dr: DIANA FONSECA Ordering Physician: DIANA FONSECA Date of Service: 03/01/23 Procedure(s): CA echo w/ con Accession Number(s): [id number] cc: IDANA FONSECA ; Shaikh Pati Day Patient Name: OZZIE GIFFORD MR#: [id number] : 1950 Exam Date: 03/01/2023 Ordering Doctor: DIANA FONSECA ECHOCARDIOGRAM REPORT PROCEDURE: CA ECHO W/ CON INDICATIONS: CVA, hypertension, loop recorder, dyspnea on exertion,edema COMPARISON: None. DESCRIPTION: COMPLETE ECHOCARDIOGRAM Real-time transthoracic echocardiography with 2D, M-mode, spectral and color flow Dopplerperformed. QUALITY: Technical quality was good. 61 , 134#, BSA 1.59 m2 LEFT VENTRICLE: Normal chamber size. Normal left ventricular wall thickness. Normal systolic function. LV EF: Normal left ventricular ejection fraction, (65%). DIASTOLIC: Normal diastolic function. ATRIAL SEPTUM: Intact atrial septum. Agitated saline contrast does not reveal an intra-cardiac shunt. LEFT ATRIUM: Normal chamber size. RIGHT ATRIUM: Normal chamber size. RIGHT VENTRICLE: Normal chamber size. Normal right ventricularsystolic function. TRICUSPID VALVE: Normal mobility and thickness. No stenosis withtrivial regurgitation. No evidence of pulmonary hypertension. RVSP 31 mmHg MITRAL VALVE: Mildly thickened with normal mobility. No evidence of mitral valve stenosis. Mild mitral annular calcification. Trivial mitral regurgitation. AORTIC VALVE: Normal trileaflet appearance. Thickened aortic valve. Normal leaflet mobility. No evidence of aortic valve stenosis. No aortic regurgitation. AORTIC ROOT: PULMONIC VALVE: Not well visualized. No stenosis. No regurgitation. PERICARDIUM: No evidence of pericardial effusion. IVC: Collapses with inspirations. IVC is normal in size. PLEURA: CONCLUSION: 1. Normal ventricular function. LVEF is 65%. 2. No significant valvular dysfunction. 3. Normal right-sided pressures. 4. No evidence of intracardiac shunt by agitated saline injections. Adult Echocardiography Procedure Report Left Ventricle LVEDD (3.7 - 5.6 cm): 3.37 cm LVESD (2.2 - 4.0 cm): 2.41 cm LVIVS thickness (0.6 - 1.2 cm): 0.92 cm LVPW thickness (0.5 - 1.0 cm): 0.81 cm e': 0.08 m/s E - e': 7.85 LVOT Max Gradient: 3.33 mm[Hg] LVOT Area (cm2): 0.91 m/s Peak Velocity (LVOT): 0.91 m/s Mean Velocity (LVOT): 0.59 m/s LVOT Diameter 1.82 cm Left Atrium LA Volume Index (2D A2C): 29.34 ml/m2 Left Atrium Systolic Dimension: 2.73 cm Mitral Valve MV E to A Ratio: 0.75 Mitral Valve A-Wave Peak Velocity: 0.80 m/s Mitral Valve E-Wave Peak Velocity: 0.60 m/s Right Ventricle Aorta AO Root Diam: 2.17 cm Aortic Valve AoV Area (Peak Shen): 2.58 cm2, 2.58 cm2 AoV Area (VTI): 2.80 cm2, 2.80 cm2 Peak Velocity(Antegrade Flow): 0.92 m/s Peak Gradient(Antegrade Flow): 3.37 mm[Hg] Mean Velocity(Antegrade Flow): 0.69 m/s Mean Gradient(Antegrade Flow): 2.03 mm[Hg] Velocity Time Integral: 24.83 cm Tricuspid Valve Peak Velocity (Regurgitant Flow): 2.66 m/s, 2.68 m/s Pulmonic Valve Peak Velocity: 0.77 m/s Peak Gradient: 2.38 mm[Hg], 2.38 mm[Hg] Right Atrium Right Atrium Systolic Pressure: 29.95 ml, 29.95 ml Dictated by: Nicolas Salvador M.D. on 03/01/2023 at 18:22 Approved by: Nicolas Salvador M.D. on 03/01/2023 at 18:27 Dictated By: NICOLAS SALVADOR Signed By:03/01/231828 DD/ 26 TD/TT: Rehabilitation Tech: Generic External Data Provider CV ECHO PROCEDURE S Final Result documented in this encounter Visit Diagnoses Not on filedocumented in this encounter Care Teams Sustainable Design Coordinator Relationship Specialty Start Date End Date Shaikh Day MD PCP - General Internal Medicine 08/30/22 05/14/23 Shaikh Day MD [address] [place] [address] PCP - General Internal Medicine 05/15/23 10/02/23 Gerry Godwin MD [address] [place] [address] PCP - General Family Medicine 10/03/23 12/02/23 Shaikh Day MD [address] [place] [address] PCP - Donald ZARCO 10/13/23 02/11/24 Unallocated, Kristi Nichole MD [address] [place] [address] PCP - General Family Medicine 12/03/23 12/11/23 Gerry Godwin MD [address] [place] [address] PCP - General Family Medicine 12/12/23 Gerry Godwin MD [address] [place] [address] PCP - Donald ZARCO 04/11/24 Aleena Collado NP [address] [place] [address] Nurse Practitioner Family Medicine 10/03/23 Obed Walls DO [address] [place] [address] Otolaryngology 12/02/23 Vish Zazueta DO [address] [place] [address] Referring Physician Neurology 12/09/23 Ynes Snyder, SANDRA [address] [place] [address] Nurse Practitioner Neurology 12/09/23 Jessica Ceballos NP [address] [address] Nurse Practitioner Neurology 12/09/23 Milton Piña, HAROLDO [address] [place] [address] Family Medicine 01/21/24 documented as of this encounter
--- OUTSIDE RECORDS SUMMARY | 2024-08-06 07:28 | XMS_ITS | Encounter Summary ---
Author Organization [facility] Address [address] [place] [address] Care Team Providers Care Mate Ship Name Role Phone Aleena Collado CATERING ADMINISTRATIVE ASSISTANT Unavailable [phone] Obed Walls DO Unavailable Vish Zazueta DO Unavailable [phone] Ynes Snyder CATERING ADMINISTRATIVE ASSISTANT Unavailable [phone] Jessica Ceballos NP Unavailable Unavailable Gerry Godwin MD Primary Care Provider Milton Piña MA Unavailable [phone] Gerry Godwin MD Unavailable Encounter Details Date Type Department Care Team (Late st Contact Info) Description 07/07/2024 Orders Only [facility] [address] [place] [address] Alexandr Granado MD [address] [place] [address] Social History Tobacco Use Types [...] week 01/27/2024 How often do you attend restorationist or muslim serv ices? Never 01/27/2024 Do you belong to any clubs o r organizations such as restorationist groups, unions, fraternal or athletic groups, or [...] Recorded Patient Health Questionnaire-2 Score 0 09/09/2023 [facility] - Occupational [...] any time in the past 12 m [facility], were you homeless or living in a correction (including now)? No 01/27/2024 Comments Unknown Sex [...] Visit [facility] [address] [place] [address] Aleena Collado NP [address] [place] [address] documented as of this encounter Procedures Procedure Name Priority Date/Time Associated Diagnosis Comments URINE CULTURE Routine 07/07/2024 9:09 AM EDT documented in this encounter Results * URINE CULTURE (07/07/2024 9:09 AM EDT) us Alexandr Granado MD LAB BLOOD ORDERABLES Final R esult documented in this encounter Visit Diagnoses Not on filedocumented in this encounter Additional Health Concerns Assessment Noted Time PHQ-9 Depression Total Score: 0 06/03/19 24 6:24 PM EDT A fall risk assessment has been complete d for the patient 01/27/2024 9:56 AM EST documented as of this encounter Care Teams Mate Ship Relationship Specialty Start Date End Date Gerry Godwin MD [address] [place] [address] PCP - General Family Medicine 12/12/23 Gerry Godwin MD [address] [place] [address] PCP - Donald ZARCO 04/11/24 Aleena Collado NP [address] [place] [address] Nurse Practitioner Family Medicine 10/03/23 Obed Walls DO [address] [place] [address] Otolaryngology 12/02/23 Vish Zazueta DO [address] [address] Referring Physician Neurology 12/09/23 Ynes Snyder NP [address] [address] Nurse Practitioner Neurology 12/09/23 Jessica Ceballos NP [address] [address] Nurse Practitioner Neurology 12/09/23 Milton Piña, HAROLDO [address] [place] [address] Family Medicine 01/21/24 documented as of this encounter
--- OUTSIDE RECORDS SUMMARY | 2024-08-06 07:28 | XMS_ITS | Encounter Summary ---
Author Organization [facility] Address [address] [place] [address] Care Team Providers Care Finisher Hot Strip Name Role Phone Shaikh PEEWEE Day Primary Care Provider [phone] Shaikh PEEWEE Day Primary Care Provider [phone] Aleena Collado CONCESSIONS MANAGER Unavailable [phone] Gerry Godwin MD Primary Care Provider [phone] Shaikh PEEWEE Day Unavailable [phone] Obed Walls Tye DO Unavailable [phone] Unallocated, [facility] Provider Primary Care Provi neftali Vish Zazueta DO Unavailable Ynes Snyder CONCESSIONS MANAGER Unavailable [phone] Jessica Ceballos CONCESSIONS MANAGER Unavailable Unavailable Gerry Godwin MD Primary Care Provider [phone] Milton Piña MA Unavailable [phone] Gerry Godwin MD Unavailable Encounter Details Date Type Department Care Team (Late st Contact Info) Description 03/05/2023 Orders Only [facility] [address] [place] [address] Shaikh Day MD [address] [place] [address] Social History Tobacco Use Types Packs/Day Years [...] things Not at all 03/06/2023 1:28 PM EST Milton Piña M A Feeling down, depressed, or hopeless Not at all 03/06/2023 1:28 PM EST Milton Piña M A Patient Health Questionnaire -2 Score 0 03/06/2023 1:28 PM EST Milton Piña M A documented as of this encounter Plan of Treatment Upcoming Encounters Date Type Department Care Team (Late st Contact Info) Description 08/11/2024 9:00 AM EDT Office Visit [facility] [address] [place] [address] Aleena Collado NP [address] [place] [address] documented as of this encounter Procedures Procedure Name Priority Date/Time Associated Diagnosis Comments MRA HEAD/BRAIN WO Routine 03/05/2023 4:09 PM EST XR CHEST 1 VIEW Routine 03/05/2023 3:56 PM EST documented in this encounter Results * MRA HEAD/BRAIN WO (03/05/2023 4:09 PM EST) Anatomical Region Laterality Modality Radiographic Alanis ging us Shaikh Barb VIDES IMG XR PROCEDURES Final Result * XR chest 1 view (03/05/2023 3:56 PM EST) Anatomical Region Laterality Modality Chest Radiographic Alanis ging us Shaikh Barb VIDES IMG XR PROCEDURES Final Result documented in this encounter Visit Diagnoses Not on filedocumented in this encounter Care Teams Finisher Hot Strip Relationship Specialty Start Date End Date Shaikh Day MD PCP - General Internal Medicine 08/30/22 05/14/23 Shaikh Day MD [address] [place] [address] PCP - General Internal Medicine 05/15/23 10/02/23 Gerry Godwin MD [address] [place] [address] PCP - General Family Medicine 10/03/23 12/02/23 Shaikh Day MD [address] [place] [address] PCP - Donald ZARCO 10/13/23 02/11/24 Unallocated, Noms MD Dayanara [address] [place] [address] PCP - General Family Medicine 12/03/23 12/11/23 Gerry Godwin MD [address] [place] [address] PCP - General Family Medicine 12/12/23 Gerry Godwin MD [address] [place] [address] PCP - Donald ZARCO 04/11/24 Aleena Collado NP [address] [place] [address] Nurse Practitioner Family Medicine 10/03/23 Obed Walls DO [address] [place] [address] Otolaryngology 12/02/23 Vsih Zazueta DO [address] [address] Referring Physician Neurology 12/09/23 Ynes Snyder NP [address] [place] [address] Nurse Practitioner Neurology 12/09/23 Jessica Ceballos NP [address] [place] [address] Nurse Practitioner Neurology 12/09/23 Milton Piña MA [address] [place] [address] Family Medicine 01/21/24 documented as of this encounter
--- OUTSIDE RECORDS SUMMARY | 2024-08-06 07:29 | XMS_ITS | Clinical Summary ---
Author Organization [facility] Address [address] [place] [address] Care Team Providers Care Lawn Care Technician Name Role Phone Aleena Collado HAND FUR CLEANER Unavailable [phone] Obed Walls DO Unavailable Vish Zazueta DO Unavailable Ynes Snyder HAND FUR CLEANER Unavailable [phone] José Manuel Mcleod NP Unavailable Unavailable Gerry Godwin MD Primary Care Provider Milton Piña MA Unavailable [phone] Gerry Godwin MD Unavailable Allergies Active Allergy Reactions Criticality Noted Date Comments Penicillin G Unknown 02/20/2023 Penicillins Rash Low 02/19/2007 Medications furosemide (Lasix) 40 MG tablet Take 20 mg by mouth Daily Pt takes 20mg 02/13/19 24 Active cetirizine (ZyrTEC) 10 MG tablet Take by mouth Act abbe trospium (Sanctura) 20 MG tablet Take 60 mg by mouth in the morning and 60 mg before bedtime. Active amLODIPine (Norvasc) 2.5 MG tabletIndications:P rimary hypertension Take 1 tablet (2.5 mg) by mouth Daily 90 tablet 1 01/21/20 24 Active QUEtiapine (SEROquel) 50 MG tabletIndications:P sychophysiological insomnia Take 1 tablet (50 mg) by mouth at bedtime 90 tablet 1 01/21/20 24 Active rosuvastatin (Crestor) 20 MG tabletIndications:A therosclerosis of coronary artery of [place] heart, unspecified vessel or lesion type, unspecified whether angina present,Stenosis of right carotid artery,Cerebrovascu lar accident (CVA), unspecified mechanism (HCC) Take 1 tablet (20 mg) by mouth at bedtime 90 tablet 1 01/21/20 24 Active topiramate 50 MG tabletIndications:M igraine with aura and without status migrainosus, not intractable Take 50 mg by mouth at bedtime 90 tablet 1 01/21/20 24 Active D-Mannose 500 MG capsule Take 500 mg by mouth Daily [facility] Active Probiotic Product (PROBIOTIC/PREBIOTI C/CRANBERRY PO) Take 60 mg by mouth Daily Active ascorbic acid (Vitamin C) 500 MG tablet Take 500 mg by mouth Daily Active baclofen (Lioresal) 20 MG tablet Take 1 tablet (20 mg) by mouth in the morning and 1 tablet (20 mg) in the evening and 1 tablet (20 mg) before bedtime. 03/29/19 25 Active estradiol (Estrace) 0.1 MG/GM vaginal cream apply a pea-sized amount vaginally and around the urethra NIGHTLY TIME 3 (THREE) weeks, then 3 (THREE) times per week thereafter 04/01/19 25 Active methenamine hippurate (Hiprex) 1 g tablet Take 1 g by mouth in the morning and 1 g before bedtime. 04/15/19 25 Active metoprolol succinate XL (Toprol-XL) 25 MG 24 hr tabletIndications:P rimary hypertension Take 1 tablet (25 mg) by mouth Daily Do not crush or chew 90 tablet 05/06/19 25 Active doxycycline (Vibra-Tabs) 100 MG tablet Take 100 mg by mouth in the morning and 100 mg before bedtime. 05/09/19 25 Active Aspirin Low Dose 81 MG chewable tablet Chew 81 mg Daily 05/16/19 25 Active clonazePAM (KlonoPIN) 0.5 MG tabletIndications:A nxiety and depression Take 1 tablet (0.5 mg) by mouth in the morning and 1 tablet (0.5 mg) before bedtime. 60 tablet 2 07/02/19 25 Active ferrous sulfate (FeroSul) 325 (65 Fe) MG tabletIndications:I sheeba deficiency Take 1 tablet (325 mg) by mouth in the morning. Take with meals. 90 tablet 1 04/30/19 25 025 Active Problems Problem Noted Date Diagnosed Date Acute diffuse otitis externa of both ears 2024 Assessment & Plan (2024 12:41 PM EDT): No evidence of TM perforation Will prescribe atb drops, for 10 days, if not better fu in office Recurrent UTI 02/26/2024 Heart failure, unspecified 01/21/2024 Assessment & Plan (01/21/2024 11:51 AM EST): Current meds: lasix, bblocker, crestor and amlodipine Does follow with [facility] cardiology Does have LE edema noted as well today, no dyspnea Peripheral vascular disease, unspecified 024 Assessment & Plan (01/21/2024 6:37 AM EST): On statin, asa CRYSTAL (generalized anxiety disorder) 01/21/2024 Overview (01/21/2024): Med agreement signed: 01/21/24 Assessment & Plan (05/12/2024 7:05 AM EDT): Has been on klonopin for some time OARRS reviewed Assessment & Plan (01/21/2024 6:45 AM EST): Has been on klonopin for some time OARRS reviewed Muscle spasm 01/21/2024 Assessment & Plan (01/21/2024 6:46 AM EST): Takes baclofen Iron deficiency 01/21/2024 Assessment & Plan (01/21/2024 10:42 AM EST): Labs stable, cont current meds Psychophysiological insomnia 01/21/2024 UTI symptoms 01/21/2024 Overview (01/21/2024): [employer] [id number] LOT #[id number] EXP DATE: 02/11/2024 Assessment & Plan (01/21/2024 11:53 AM EST): Treat with macrobid, send for health trax culture Chronic UTI 01/21/2024 Assessment & Plan (01/23/2024 11:37 AM EST): Contacted urology , they ask w put in new referral for urology, although was last seen in 09/03 Will refer back to urology Today's culture pending 01/21/24: e coli and strept B, initially started on macrobid, changed on 01/23/24 to cipro 11/16/23 e coli, tx macrobid 10/26/23 Klebsiella bactrim 06/03/23: no culture, treated with bactrim by [facility] 02/20/23 ecoli Assessment & Plan (01/21/2024 11:59 AM EST): Contacted urology , they ask w put in new referral for urology, although was last seen in 09/03 Will refer back to urology Today's culture pending 11/16/23 e coli, tx macrobid 10/26/23 Klebsiella bactrim 06/03/23: no culture, treated with bactrim by [facility] 02/20/23 ecoli White matter disease 09/11/2023 Incontinence without sensory awareness Oropharyngeal dysphagia 08/21/2023 Assessment & Plan (10/22/2023 11:19 AM EDT): Cont with speech therapy Will refer to ENT Assessment & Plan (09/10/2023 12:03 AM EDT): Hx of CVA with residual neurological deficit - has dysarthria, expressive and receptive aphasia. She has lately been experiencing progressively worsening dysphagia and is now having difficulty with thin liquids and experiences cough/throat discomfort with liquids and sometimes throws up after drinking liquids. This is likely a sequelae of her stroke with recent worsening due to overall functional/physical decline in her health, muscular weakness due to aging. No gross aspiration on video swallow eval but sig issues noticed with swallowing by speech therapist. Will order speech therapy for the patient. She will need home health also as she is unable to drive and go by herself for speech therapy. She has poor gait/balance. Prior stroke has affected her cognition also. Will order home health eval Assessment & Plan (08/21/2023 10:18 AM EDT): Hx of CVA with residual neurological deficit - has dysarthria, expressive and receptive aphasia. She has lately been experiencing progressively worsening dysphagia and is now having difficulty with thin liquids and experiences cough/throat discomfort with liquids and sometimes throws up after drinking liquids. This is likely a sequelae of her stroke with recent worsening due to overall functional/physical decline in her health, muscular weakness due to aging - she will need video swallow eval and speech evaluation. She will need to be on modified diet based on speech evaluation. I recommended that she avoids drinking thin liquid Medicare annual wellness visit, subsequent 06/02 Assessment & Plan (2023 7:16 PM EDT): Patient here for Medicare Wellness. Reviewed medical, surgical and social history. Reviewed medication list. Patient screened for depression, fall risk, cognitive impairment. Patient provided appropriate education on chronic medical conditions, prescription medications. Patient's health related questions and concerns addressed and answered. Colonoscopy 2021- no need for repeat. Encounter for screening mammogram for breast can cer 2023 Dizziness and giddiness 05/15/2023 Assessment & Plan (05/12/2024 7:04 AM EDT): Continue with Neurology Assessment & Plan (10/22/2023 11:17 AM EDT): Refer to neuro Assessment & Plan (08/21/2023 10:21 AM EDT): Dizziness and giddiness. Unstable gait. She has had an MRI brain on two occasions - no evidence of Stroke. Her symptoms started around January 2023 She has mild dysarthria and diplopia from prior CVA. She is on ASA, Plavix and statin for secondary stroke px. Patient was seen by Vascular neurology - they are thinking her symptoms from peripheral vertigo. No improvement with meclizine. Seen by Neurology. 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 Assessment & Plan (2023 7:08 PM EDT): Dizziness and giddiness. Unstable gait. Patients reports also reports vertigo. Her symptoms started last January. She has had an MRI brain on two occasions - no evidence of Stroke. She has mild dysarthria and diplopia from prior CVA. She is on ASA, Plavix and statin for secondary stroke px. Patient was seen by Vascular neurology - they are thinking her symptoms from peripheral vertigo. No improvement with meclizine. She was referred to Dr Arita and she is scheduled to see him in June. I reached out to him and briefly discussed her case and asked him if she could be seen sooner as she is really struggling with dizziness and poor balance. Assessment & Plan (05/15/2023 5:27 PM EDT): Dizziness and giddiness. Unstable gait. Patients reports also reports vertigo. Her symptoms started last January. She has had an MRI brain on two occasions - no evidence of Stroke. She has mild dysarthria and diplopia from prior CVA. She is on ASA, Plavix and statin for secondary stroke px. Patient was seen by Vascular neurology - they are thinking her symptoms from peripheral vertigo. Ordered meclizine and ordered vestibular rehab. She was referred to Dr Arita and she is scheduled to see him in June. Peripheral vertigo involving left ear 05/15/2023 Assessment & Plan (05/15/2023 5:29 PM EDT): Persistent, accompanied with poor balance, dizziness and unstable gait. No evidence of stroke on MRI. No new neurological symptoms. No tinnitus, hearing difficulty. Prior hx of CVA. Patient seen by vascular surgery. Symptoms started in dec, progressively worsening. Trial of meclizine, ordered vestibular rehab Impaired mobility and activities of daily living 03/14/2023 Assessment & Plan (05/12/2024 7:05 AM EDT): Continue with home health Assessment & Plan (02/27/2024 4:19 PM EST): Was getting HH, would benefit from continued services Dysarthria 02/20/2023 History of cerebrovascular a ccident (CVA) with residual deficit 02/20/2023 Assessment & Plan (02/27/2024 4:19 PM EST): Would benefit from continued home health services, she relies heavily on her to help with her ADL's Other hyperlipidemia 02/20/2023 Primary hypertension 02/20/2023 Assessment & Plan (05/12/2024 7:05 AM EDT): Please check blood pressure daily and record DASH diet Limit caffeine Take medication as directed Contact office if chest pain, pressure, dizziness, shortness of breath, swelling legs Recommend slow position changes Current meds: asa, amlodipine, metoprolol XL Assessment & Plan (01/21/2024 6:37 AM EST): Please check blood pressure daily and record DASH diet Limit caffeine Take medication as directed Contact office if chest pain, pressure, dizziness, shortness of breath, swelling legs Recommend slow position changes Current meds: asa, amlodipine, metoprolol XL Assessment & Plan (10/22/2023 11:16 AM EDT): stable Assessment & Plan (09/09/2023 11:59 PM EDT): At goal. Monitor closely. Recurrent major depressive disorder, in full rem ission 02/20/2023 Assessment & Plan (01/21/2024 6:39 AM EST): Takes klonopin prn, topirmate, seroquel as well Migraine with aura and witho ut status migrainosus, not intractable 02/20/2023 Assessment & Plan (01/21/2024 6:46 AM EST): Continue with topirimate Assessment & Plan (09/10/2023 12:01 AM EDT): Previously well controlled on Topamax. But lately she is having daily migraine RIVAS. This is likely due to increased stress in her life. She is unable to use triptans due to sig hx of PVD, Ischemic stroke. I gave her samples of ubrelvy to see if it helps her migraine RIVAS. She will reach out to us and let us know. C/w topamax at current dose for now. We may have to increase the dose if she continues to have daily or poorly controlled migraines. Overflow incontinence of urine 02/20/2023 Assessment & Plan (05/12/2024 7:05 AM EDT): Continue with urology Assessment & Plan (01/21/2024 11:52 AM EST): Will reach out to Urology office to get an appt with them Assessment & Plan (02/20/2023 12:13 PM EST): Patient reports for over past 6 months, she has been experiencing urinary incontinence. She usually leaks large amount of urine. Happens on a daily basis and as a result she is always wearing adult diapers. Patient reports that most of the time, she does not feel the urge to urinate. She has had frequent UTI in past one year and currently, experiencing dysuria. She also adds that dysuria has been more or less persistent for 6 months. She denies pelvic injury, had 2 children via NVD. Denies any signs and symptoms concerning for prolapse. Will check UA, urine culture. Will also refer to Urology. Mixed hyperlipidemia 01/19/2022 Overview (02/20/2023): Last Assessment & Plan: Lipid abnormalities are well controlled, continue crestor Coronary atherosclerosis 03/23/2020 Overview (02/20/2023): Images from the original note were not included. 02/21/22 Echo Last Assessment & Plan: Coronary artery disease is stable Continue GDMT- ASA, crestor and toprol continue risk factor modifications- heart healthy diet, regular exercise as tolerated and continue all medications. Assessment & Plan (01/21/2024 12:03 PM EST): Continue with cardiology, swelling in legs ??heart failure related Is on statin, asa, b jimmy and amlodipine Check lipids yearly and prn dose changes Assessment & Plan (10/22/2023 11:17 AM EDT): Crestor, toprol and ASA Carotid artery stenosis 02/24/2020 Overview (05/15/2023): Images from the original note were not included. Last Assessment & Plan: F/U with vascular surgery for monitoring Assessment & Plan (01/21/2024 6:39 AM EST): Statin, asa, vascular monitoring Assessment & Plan (10/22/2023 11:17 AM EDT): Cont statin, and ASA Assessment & Plan (05/15/2023 5:31 PM EDT): S/p right CEA previously and subsequent restenosis. Just had carotid stenting in 05/04 On ASA, PLAVIX and statin. Cerebrovascular accident (CVA) 04/05/2018 Overview (02/20/2023): Last Assessment & Plan: F/U with neuro Assessment & Plan (05/12/2024 7:04 AM EDT): Continue w neurology Cont statin, asa and blood pressure meds Is receiving Home Health services Assessment & Plan (02/27/2024 4:17 PM EST): Continue w neurology Cont statin, asa and blood pressure meds Was receiving Home Health services , and would benefit from continued Home Health Services Assessment & Plan (10/22/2023 11:16 AM EDT): Would like a more local neurologist Osteoarthritis 04/09/2007 Resolved Problems Problem Noted Date Diagnosed Date Resolved Date Acute cystitis without hematuria 10/30/2023 01/21/2024 Overview (10/30/2023): 10/30/23 klebsiella, tx w bactrim Urinary tract infection symptoms 2023 01/21/2024 Assessment & Plan (2023 7:21 PM EDT): Patient reports urinary symptoms - x 1 week. Has dysuria, foul smelling urine UA in office c/w UTI Will call in oral bactrim for the patient. Hospital discharge follow-up 03/06/2023 10/22/2023 Assessment & Plan (03/06/2023 1:40 PM EST): Patient recently admitted for worsening neurological symptoms - dysarthria, vertigo and admitted for suspected CVA - no evidence of acute CVA on MRI. Work up unremarkable. Patient also had migraine RIVAS with those symptoms and its possible that she had neurological symptoms due to migraine RIVAS. Patient will call and set up outpatient Vascular Neurology follow up She is on ASA, Crestor. BP is well controlled. No changes needed. URTI (acute upper respiratory infection) 02/20/2023 10/22/2023 Assessment & Plan (03/06/2023 1:42 PM EST): Patient had reported symptoms of cough in the morning and had asked for testing. Respiratory panel is negative for any influenza, COVID. Symptoms resolved. Denies cough, SOB, nasal, chest congestion. Assessment & Plan (02/20/2023 12:09 PM EST): Patient reports cough with sputum, sinus congestion x 1 week. Denies earache, discharge or fever. She also denies SOB, wheezing. Exam consistent with pharyngitis, presumably bacterial. Will call in PO prednisone to help with congestive symptoms, benzonatate for cough, Azithromycin for antibacterial coverage. PCN allergic. Hypertension 06/22/2009 10/22/2023 Overview (02/20/2023): Last Assessment & Plan: Hypertension is elevated, currently will increase lasix to daily and increase potassium, Repeat BMP in 1 week Continue norvasc 2.5 mg Renal function normal Encounters Date Type Department Care Team Description 08/03/2024 Patient Outreach [facility] [address] [place] [address] Milton Piña MA 07/29/2024 Patient Outreach [facility] [address] [place] [address] Milton Piña MA 07/07/2024 Orders Only [facility] [address] [place] [phone] Alexandr Granado MD 07/01/2024 Refill [facility] [address] [place] [phone] Aleena Collado NP Chronic UTI (Primary Dx); Anxiety and depression ; Overflow incontinence of urine 07/01/2024 Refill [facility] [address] [place] [phone] Aleena Collado NP 07/01/2024 Patient Outreach [facility] [address] [place] [address] Milton Piña MA 06/30/2024 9:00 AM EDT Office Visit [facility] [address] [address] [place] [phone] Chaim Noel MD Primary progressive aphasia (HCC) (Primary Dx); Ataxia; Memory difficulty; History of ischemic stroke; Other insomnia; DULCE MARIA (obstructive sleep apnea); Severe episode of recurrent major depressive disorder, without psychotic features (HCC); Severe anxiety 06/25/2024 Patient Outreach [facility] [address] [place] [address] Milton Piña MA 06/24/2024 Clinisync Result Encounter [facility] External Department Unsolicited José Manuel Mcleod NP 06/24/2024 Clinisync Result Encounter [facility] External Department Unsolicited José Manuel Mcleod NP 06/24/2024 Clinisync Result Encounter [facility] External Department Unsolicited José Manuel Mcleod NP 06/22/2024 Telephone [facility] [place] [address] [place] [phone] Chaim Hui MA 06/15/2024 10:30 AM EDT Office Visit [facility] [address] [phone] Chaim Noel MD Expressive aphasia (Primary Dx); Memory difficulty; History of ischemic stroke; Staring episodes; Other insomnia; Stress due to family tension 06/15/2024 Bamboo flowsheet [facility] [address] [phone] Chaim Noel MD 06/12/2024 Travel 2024 10:30 AM EDT Office Visit [facility] [address] [place] [address] Aleena Collado NP Acute diffuse otitis externa of both ears (Primary Dx) 2024 Bamboo flowsheet [facility] [address] [place] [phone] Aleena Collado NP 06/01/2024 1:20 PM EDT Office Visit [facility] [place] [address] [phone] José Manuel Mcleod NP Ataxia (Primary Dx); Gait instability; Expressive aphasia; Memory difficulty; History of ischemic stroke 06/01/2024 Bamboo flowsheet [facility] [address] [phone] José Manuel Mcleod NP 05/29/2024 Refill [facility] [address] [place] [address] Aleena Collado NP Dizziness and giddiness (Primary Dx) 05/27/2024 Patient Outreach [facility] [address] [facility] [place] [address] Milton Piña MA 05/18/2024 Orders Only [facility] [address] [place] [address] Bernice Clemente MD 05/12/2024 1:40 PM EDT Office Visit [facility] [address] [place] [address] Aleena Collado NP Primary hypertension (Primary Dx); Cerebrovascular accident (CVA), unspecified mechanism (HCC); Dizziness and giddiness; Overflow incontinence of urine; CRYSTAL (generalized anxiety disorder) ; Impaired mobility and activities of daily living 05/12/2024 Clinisync Result Encounter [facility] Department Unsolicited Aleena Collado NP 05/12/2024 Bamboo flowsheet [facility] [address] [place] [address] Aleena Collado NP 05/11/2024 Orders Only [facility] [address] [place] [address] Bernice Clemente MD from Last 3 Months Immunizations Immunization Administration Dates Next Due DTP 11/18/2020 Influenza, High Dose Seasona l, Preservative Free 12/22/2018 Influenza, High-dose Seasona l, Quadrivalent, Preservative Free 12/09/2019 Influenza, Seasonal, Quadriv alent, Adjuvanted 11/24/2022,01/20/2022,11/26/2020 Influenza, Unspecified 11/09/2023,2022,01/20/2022,2020,12/09/2019,12/22/2018 Influenza, trivalent, adjuvanted 11/09/2023 Novel [id number], preservative-free 02/17/2009 Pneumococcal Conjugate PCV 20 11/24/2022 RSV, recombinant, protein james bunit RSVpreF, adjuvant reconstitu, 120mcg/0.5mL, PF (Arexvy) 11/24/2022 Family History Medical History Relation Name Comments Cancer Father Diabetes Father Heart disease Father Cancer Mother Hypertension Mother Relation Name Status Comments Father Mother Social History Tobacco Use Types Packs/Day Years Used Date Smoking Tobacco: Former Cigarettes Passive Smoke Exposure: Current Smokeless Tobacco: Never Tobacco Cessation:Counseling Given: No Alcohol Use Standard Drinks/Week Comments Never 0 [...] week 01/27/2024 How often do you attend buddhism or voodoo serv ices? Never 01/27/2024 Do you belong to any clubs o r organizations such as buddhism groups, unions, fraternal or athletic groups, or [...] Recorded Patient Health Questionnaire-2 Score 0 09/09/2023 [facility] - Occupational Stress Questionnaire Answer Date Recorded [...] any time in the past 12 m [facility], were you homeless or living in a senior living (including now)? No 01/27/2024 Comments Unknown Sex and Gender Information Value Date Recorded Sex Assigned at Not on file Legal Sex Female 6:38 PM EDT Gender Identity Not on file Sexual Orientation Not on file Last Filed Vital Signs Vital Sign Reading Time Taken Comments Blood Pressure 124/70 2024 10:12 AM EDT Pulse 71 2024 10:12 AM EDT Temperature 37.1 C (98.8 F) 2024 10:12 AM EDT Respiratory Rate 18 2024 10:12 AM EDT Oxygen Saturation 98% 2024 10:12 AM EDT Inhaled Oxygen Concentration - - Weight 70.4 kg (155 lb 3.2 oz) 2024 10:12 AM EDT Height 154.9 cm (5' 1 ) 01/21/2024 9:55 AM EST Body Mass Index 29.32 01/21/2024 9:55 AM EST Plan of Treatment Upcoming Encounters Date Type Department Care Team (Late st Contact Info) Description 08/11/2024 9:00 AM EDT Office Visit [facility] [address] [place] [address] Aleena Collado, HAND FUR CLEANER [address] [place] [address] Health Maintenance Due Date Last Done Comments Colonoscopy Discontinued 05/12/2021, 05/12/2021 Colorectal Cancer Screening Discontinued Pneumococcal Vaccine: 65+ Years Completed Influenza Vaccine Completed 11/09/2023, , 11/24/2022, Additional history exists CT Colonography Discontinued FIT-DNA Discontinued FIT Discontinued FOBT Discontinued Sigmoidoscopy Discontinued Procedures Procedure Name Priority Date/Time Associated Diagnosis Comments URINE CULTURE Routine 07/07/2024 9:09 AM EDT MRI HEAD/BRAIN WO/W CONTR 06/24/2024 1:48 PM EDT MR CERVICAL SPINE WO/W CON 06/24/2024 11:50 AM EDT TBH CREATININE Routine 06/24/2024 7:50 AM EDT SCANNED LABS Routine 05/18/2024 10:57 AM EDT ALL BASIC METABOLIC PANEL Routine 05/12/2024 3:05 PM EDT ALL CBC WITH AUTO DIFF Routine 05/12/2024 3:05 PM EDT URINE CULTURE Routine 05/11/2024 2:05 PM EDT from Last 3 Months Results * URINE CULTURE (07/07/2024 9:09 AM EDT) Only the most recent of2 resultswithin the time period is included. us Alexandr Granado MD LAB BLOOD ORDERABLES Final R esult * MRI HEAD/BRAIN WO/W CONTR (06/24/2024 1:48 PM EDT) Anatomical Region Laterality Modality Radiographic Alanis ging 06/24/2024 1:48 PM EDT Narrative 06/24/2024 1:50 [place] [address] Magnetic Resonance Report Signed Patient: OZZIE GIFFORD MR#: [id number] : 1950 Acct:[id number] Age/Sex: 74 / F ADM Date: 06/24/24 Loc: LAB Attending Dr: José Manuel Mcleod NP Ordering Physician: José Manuel Mcleod NP Date of Service: 06/24/24 Procedure(s): MR head/brain wo/w con Accession Number(s): [id number] cc: Aleena Collado HAND FUR CLEANER; José Manuel Mcleod NP [facility] [place] [id number] Patient Name: OZZIE GIFFORD MRN: [id number] date: 1950 Sex: F Assigned Patient Location: LAB Current Patient Location: LAB Accession/Order Number: [id number] Exam Date: 06/24/2024 13:40 Report Date: 06/24/2024 13:48 At the request of: JOSÉ MANUEL MCLEOD NP Procedure: MR head/brain wo/w con MR head/brain wo/w con 06/24/2024 10:33 AM SIGN AND SYMPTOMS: Ataxia, Gait Instability, Memory Difficulty, Aphasia PROTOCOL: Multiplanar multisequence MR images of the brain were obtained with and without IV contrast CONTRAST: 14 mL of intravenous Dotarem COMPARISON: None. FINDINGS: Extra axial spaces: Age appropriate. Hemorrhage: None. Ventricular system: There is mild ex vacuo dilatation of the left lateral ventricle. Basal cisterns: Within normal limits and not effaced. Cerebral parenchyma: There is gliosis and encephalomalacia within the lateral aspect of the left temporal lobe and left parietal lobe consistent with a remote infarct. Periventricular white matter T2 and FLAIR hyperintense signal is noted suggesting chronic microvascular ischemic change bilaterally. Remote lacunar infarcts are noted in the head of the right caudate nucleus. No abnormal postcontrast enhancement. Midline shift: None.. Cerebellum: Within normal limits. Brainstem: Within normal limits. OTHER: Calvarium: Normal marrow signal. Vascular system: Satisfactory flow voids within the anterior and posterior circulation. Visualized Paranasal sinuses: Within normal limits. Visualized Orbits: Within normal limits. Visualized upper cervical spine: Within normal limits. Sella and skull base: Within normal limits. MR/MR head/brain wo/w con IMPRESSION: No acute intrarenal pathology or abnormal postcontrast enhancement. There are remote infarcts in the left MCA territory as well as the head of the right caudate nucleus. Additional chronic age-related neurodegenerative changes are noted as above. Impression dictated by: Kobe Sung M.D. 06/24/2024 1:48 PM Dictation Location: [place] [address] Electronically authenticated by: [id number] Y Date: 06/24/2024 13:48 Dictated By: Kobe Sung M.D. Signed By: 06/24/24 1350 DD/ 1348 TD/TT: Hands And Dial Inspector: Procedure Note Radiology, Radiologist, MD - 06/24/2024 [place] [address] Magnetic Resonance Report Signed Patient: OZZIE GIFFORD BMR#: [id number] : 9Acct:[id number] Age/Sex: 74 / FADM Date: 06/24/24 Loc: LAB Attending Dr: José Manuel Mcleod HAND FUR CLEANER Ordering Physician: José Manuel Mcleod NP Date of Service: 06/24/24 Procedure(s): MR head/brain wo/w con Accession Number(s): [id number] cc: Aleena Collado NP; José Manuel Mcleod NP [address] [address] Patient Name: OZZIE GIFFORD MRN: [facility]:[id number] date: 1950 Sex: F Assigned Patient Location: LAB Current Patient Location: LAB Accession/Order Number: [id number] Exam Date: 06/24/2024 13:40 Report Date: 06/24/2024 13:48 At the request of: JOSÉ MANUEL MCLEOD NP Procedure: MR head/brain wo/w con MR head/brain wo/w con 06/24/2024 10:33 AM SIGN AND SYMPTOMS: Ataxia, Gait Instability, Memory Difficulty, Aphasia PROTOCOL: Multiplanar multisequence MR images of the brain were obtainedwith and without IV contrast CONTRAST: 14 mL of intravenous Dotarem COMPARISON: None. FINDINGS: Extra axial spaces: Age appropriate. Hemorrhage: None. Ventricular system: There is mild ex vacuo dilatation of the left lateral ventricle. Basal cisterns: Within normal limits and not effaced. Cerebral parenchyma: There is gliosis and encephalomalacia within thelateral aspect of the left temporal lobe and left parietal lobe consistent with a remote infarct. Periventricular white matter T2 and FLAIR hyperintensesignal is noted suggesting chronic microvascular ischemic change bilaterally.Remote lacunar infarcts are noted in the head of the right caudate nucleus. No abnormal postcontrast enhancement. Midline shift: None.. Cerebellum: Within normal limits. Brainstem: Within normal limits. OTHER: Calvarium: Normal marrow signal. Vascular system: Satisfactory flow voids within the anterior and posterior circulation. Visualized Paranasal sinuses: Within normal limits. Visualized Orbits: Within normal limits. Visualized upper cervical spine: Within normal limits. Sella and skull base: Within normal limits. MR/MR head/brain wo/w con IMPRESSION: No acute intrarenal pathology or abnormal postcontrast enhancement. There are remote infarcts in the left MCA territory as well as the head ofthe right caudate nucleus. Additional chronic age-related neurodegenerative changes are noted asabove. Impression dictated by: Kobe Sung M.D. 06/24/2024 1:48 PM Dictation Location: [place] [address] Electronically authenticated by: [id number] Y Date: 3:48 Dictated By: Kobe Sung M.D. Signed By:06/24/24 1350 DD/ 1348 TD/TT: Hands And Dial Inspector: José Manuel Mcleod NP IMG XR PROCEDURES Final Result * MR CERVICAL SPINE WO/W CON (06/24/2024 11:50 AM EDT) Anatomical Region Laterality Modality Other 06/24/2024 11:5 0 AM EDT Narrative 06/24/2024 11:52 [place] [address] Magnetic Resonance Report Signed Patient: OZZIE GIFFORD MR#: [id number] : 1950 Acct:[id number] Age/Sex: 74 / F ADM Date: 06/24/24 Loc: LAB Attending Dr: José Manuel Mcleod NP Ordering Physician: José Manuel Mcleod NP Date of Service: 06/24/24 Procedure(s): MR cervical spine wo/w con Accession Number(s): [id number] cc: Aleena Collado HAND FUR CLEANER; José Manuel Mcleod NP [facility] [place] [id number] Patient Name: OZZIE GIFFORD MRN: [facility]:[id number] date: 1950 Sex: F Assigned Patient Location: LAB Current Patient Location: LAB Accession/Order Number: [id number] Exam Date: 06/24/2024 11:38 Report Date: 06/24/2024 11:50 At the request of: JOSÉ MANUEL MCLEOD NP Procedure: MR cervical spine wo/w con MR cervical spine wo/w con 06/24/2024 10:33 AM SIGNS AND SYMPTOMS: Ataxia, Gait Instability PROTOCOL: Multiplanar multisequence MR images of the cervical spine were obtained with and without IV contrast CONTRAST: 14 mL of intravenous Dotarem COMPARISON: None. FINDINGS: The bones of the cervical spine are in anatomic alignment. There is preservation of vertebral body heights. There is mild disc height loss at C4-C5. The marrow signal is within normal limits. The cord is normal in signal. No epidural or paraspinous fluid collection is appreciated. The visualized paraspinous soft tissues are within normal limits. The prevertebral soft tissues are within normal limits. No abnormal postcontrast enhancement. At C2-C3: There is a normal disc, central canal, and neural foramen. At C3-C4: There is a normal disc, central canal, and neural foramen. At C4-C5: There is a broad-based disc bulge with facet and operative injection change contributing to mild spinal canal narrowing and mild left neural foraminal narrowing. At C5-C6: There is a normal disc, central canal, and neural foramen. At C6-C7: There is a normal disc, central canal, and neural foramen. At C7-T1: There is a normal disc, central canal, and neural foramen. MR/MR cervical spine wo/w con IMPRESSION: At C4-C5: There is a broad-based disc bulge with facet and operative injection change contributing to mild spinal canal narrowing and mild left neural foraminal narrowing. No cord compression or cord signal abnormality. No abnormal postcontrast enhancement. Impression dictated by: Kobe Sung M.D. 06/24/2024 11:50 AM Dictation Location: [place] [address] Electronically authenticated by: [id number] Y Date: 06/24/2024 11:50 Dictated By: Kobe Sung M.D. Signed By: 06/24/24 1152 DD/ 1150 TD/TT: Hands And Dial Inspector: Procedure Note Radiology, Radiologist, MD - 06/24/2024 [place] [address] Magnetic Resonance Report Signed Patient: OZZIE GIFFORD BMR#: [id number] : 9Acct:[id number] Age/Sex: 74 / FADM Date: 06/24/24 Loc: LAB Attending Dr: José Manuel Mcleod HAND FUR CLEANER Ordering Physician: José Manuel Mcleod NP Date of Service: 06/24/24 Procedure(s): MR cervical spine wo/w con Accession Number(s): [id number] cc: Aleena Collado NP; José Manuel Mcleod NP [place] [id number] Patient Name: OZZIE GIFFORD MRN: [facility]:[id number] date: 1950 Sex: F Assigned Patient Location: LAB Current Patient Location: LAB Accession/Order Number: [id number] Exam Date: 06/24/2024 11:38 Report Date: 06/24/2024 11:50 At the request of: JOSÉ MANUEL MCLEOD NP Procedure: MR cervical spine wo/w con MR cervical spine wo/w con 06/24/2024 10:33 AM SIGNS AND SYMPTOMS: Ataxia, Gait Instability PROTOCOL: Multiplanar multisequence MR images of the cervical spine were obtained with and without IV contrast CONTRAST: 14 mL of intravenous Dotarem COMPARISON: None. FINDINGS: The bones of the cervical spine are in anatomic alignment. Thereis preservation of vertebral body heights. There is mild disc height loss at C4-C5. The marrow signal is within normal limits. The cord is normal in signal. No epidural or paraspinous fluid collection is appreciated. The visualized paraspinous soft tissues are within normal limits. Theprevertebral soft tissues are within normal limits. No abnormal postcontrastenhancement. At C2-C3: There is a normal disc, central canal, and neural foramen. At C3-C4: There is a normal disc, central canal, and neural foramen. At C4-C5: There is a broad-based disc bulge with facet and operativeinjection change contributing to mild spinal canal narrowing and mild left neural foraminal narrowing. At C5-C6: There is a normal disc, central canal, and neural foramen. At C6-C7: There is a normal disc, central canal, and neural foramen. At C7-T1: There is a normal disc, central canal, and neural foramen. MR/MR cervical spine wo/w con IMPRESSION: At C4-C5: There is a broad-based disc bulge with facet and operativeinjection change contributing to mild spinal canal narrowing and mild left neural foraminal narrowing. No cord compression or cord signal abnormality. No abnormal postcontrast enhancement. Impression dictated by: Kobe Sung M.D. 06/24/2024 11:50 AM Dictation Location: [place] [address] Electronically authenticated by: [id number] Y Date: 1:50 Dictated By: Kobe Sung M.D. Signed By:06/24/24 1152 DD/ 1150 TD/TT: Hands And Dial Inspector: José Manuel Mcleod NP [facility] IMAGING Final Result * [facility] CREATININE (06/24/2024 7:50 AM EDT) CREATININE 0.68 0.55 - 1.02 mg/dL TBH TBH EGFR-AF ARGENTINE >60 >=60 mL/min/1.7 3m 2 TBH TBH EGFR-NON AF ARGENTINE >60 >=60 mL/min/1.7 3m 2 TBH 06/24/2024 7:50 AM EDT 06/24/2024 7:51 AM EDT Narrative [facility] - 06/24/2024 8:09 AM EDT José Manuel Mcleod NP [facility] Final Result [facility] TB * SCANNED LABS (05/18/2024 10:57 AM EDT) Bernice Clemente MD LAB CHG PERFORMABLES Final Res ult * (ABNORMAL) ALL CBC WITH AUTO DIFF (05/12/2024 3:05 PM EDT) TBH WBC 7.5 4.0 - 11.0 10 3/uL TBH TBH RBC 4.63 4.20 - 5.40 10 6/uL TBH TBH HGB 14.2 12.0 - 16.0 g/dL TBH TBH HCT 41.9 36.0 - 48.0 % TBH TBH MCV 90.5 81.0 - 99.0 fL TBH TBH MCH 30.7 26.7 - 34.0 pg TBH TBH MCHC 33.9 29.9 - 35.2 g/dL TBH TBH RDW 13.3 11.0 - 15.0 % TBH TBH PLT 145(L) 150 - 450 10 3/uL TBH TBH MPV 10.7 9.5 - 13.5 fL TBH NEUTROPHILS PERCENT AUTO 60.8 43.0 - 75.0 % TBH LYMPHOCYTES PERCENT AUTO 25.5 20.5 - 60.0 % TBH MONOCYTES PERCENT AUTO 8.2 1.7 - 12.0 % TBH TBH EO % 4.3 0.9 - 7.0 % TBH BASOPHILS PERCENT AUTO 0.9 0.2 - 2.0 % TBH IMMATURE GRANULOCYTES PCT AUTO 0.3 0.0 - 0.5 % TBH NEUTROPHILS ABSOLUTE AUTO 4.5 1.4 - 6.5 10 3/uL TBH LYMPHOCYTES ABSOLUTE AUTO 1.9 1.2 - 3.8 10 3/uL TBH MONOCYTES ABSOLUTE AUTO 0.6 0.3 - 0.8 10 3/uL TBH TBH EO # 0.3 0.0 - 0.7 10 3/uL TBH BASOPHILS ABSOLUTE AUTO 0.1 0.0 - 0.1 10 3/uL TBH IMMATURE GRANULOCYTES ABS AUTO 0.02 0.00 - 0.03 10 3/uL TBH 05/12/2024 3:05 PM EDT 05/12/2024 3:29 PM EDT Narrative [facility] - 05/12/2024 3:39 PM EDT us Aleena Collado NP [facility] Final Result [facility] * (ABNORMAL) ALL BASIC METABOLIC PANEL (05/12/2024 3:05 PM EDT) SODIUM 146(H) 136 - 145 mmol/L TBH POTASSIUM 3.5 3.5 - 5.1 mmol/L TBH CHLORIDE 111(H) 98 - 107 mmol/L TBH CARBON DIOXIDE 26.7 21.0 - 32.0 mmol/L TBH ANION GAP 11.8 TBH GLUCOSE 82 74 - 106 mg/dL TBH BLOOD UREA NITROGEN 21.0(H) 7.0 - 18.0 mg/dL TBH CREATININE 0.76 0.55 - 1.02 mg/dL TBH TBH EGFR-AF ARGENTINE >60 >=60 mL/min/1.7 3m 2 TBH TBH EGFR-NON AF ARGENTINE >60 >=60 mL/min/1.7 3m 2 TBH BUN CREATININE RATIO 27.6 TBH CALCIUM 8.8 8.5 - 10.1 mg/dL TBH 05/12/2024 3:05 PM EDT 05/12/2024 3:29 PM EDT Narrative [facility] - 05/12/2024 3:59 PM EDT us Aleena Collado HAND FUR CLEANER [facility] Final Result [facility] TB from Last 3 Months Insurance [employer] Care Teams Lawn Care Technician Relationship Specialty Start Date End Date Gerry Godwin MD [address] [place] [address] PCP - General Family Medicine 12/12/23 Gerry Godwin MD [address] [place] [address] PCP - Donald ZARCO 04/11/24 Aleena Collado NP [address] [place] [address] Nurse Practitioner Family Medicine 10/03/23 Obed Walls DO [address] [place] [address] Otolaryngology 12/02/23 Vish Zazueta DO [address] [phone] Referring Physician Neurology 12/09/23 Ynes Snyder NP [address] [phone] Nurse Practitioner Neurology 12/09/23 José Manuel Mcleod NP [address] [address] Nurse Practitioner Neurology 12/09/23 Milton Piña MA [address] [place] [address] Family Medicine 01/21/24
--- OUTSIDE RECORDS SUMMARY | 2024-08-06 07:29 | XMS_ITS | Encounter Summary ---
Author Organization [facility] Address [facility] [place] [address] Care Team Providers Care Scientific Publications Editor Name Role Phone Aneesh Ramirez MD Primary Care Provid er Source Comments In the event this information is protected by the Federal Confidentiality of Alcohol and Drug AbusePatient Records regulations: The Federal rules restrict any use of the information to criminally investigate or prosecute any alcohol or drug abuse patient.[facility] Encounter Details Date Type Department Care Team (Late st Contact Info) Description 06/06/2009 Patient Msg Medical Records [address] [place] [phone] Provider, Cc RE: Patient Registration Completed Social History Tobacco Use Types Packs/Day Years Used Date Smoking Tobacco: Former Alcohol Use Standard Drinks/Week Comments No 0 (1 standard drink = 0.6 oz pur e alcohol) Comments No Sex and Gender Information Value Date Recorded Sex Assigned at Not on file Legal Sex Female 9:33 AM EST Gender Identity Not on file Sexual Orientation Not on file documented as of this encounter Plan of Treatment Not on file documented as of this encounter Visit Diagnoses Not on filedocumented in this encounter Care Teams Scientific Publications Editor Relationship Specialty Start Date End Date Aneesh Ramirez MD [address] [place] [address] PCP - General 07/24/07 documented as of this encounter
--- OUTSIDE RECORDS SUMMARY | 2024-08-06 07:29 | XMS_ITS | Clinical Summary ---
Author Organization [facility] Address [id number] [address] [place] [address] Care Team Providers Care E Commerce Strategist Name Role Phone Gerry Godwin MD Primary Care Provider [phone] Allergies Active Allergy Reactions Criticality Noted Date Comments Penicillins 04/05/2018 Medications metoprolol succinate XL (TOPROL-XL) 25 mg 24 hr tablet Take 1 tablet (25 mg total) by mouth in the morning. Active lisinopril-hydr oCHLOROthiazide (PRINZIDE,ZESTO RETIC) 10-12.5 mg per tablet Take 1 tablet by mouth in the morning. Active aspirin 81 mg Take 1 tablet (81 mg total) by mouth in the morning. Active clonazePAM (KlonoPIN) 0.5 mg tablet Take 1 tablet (0.5 mg total) by mouth in the morning and 1 tablet (0.5 mg total) before bedtime. Active cetirizine (ZyrTEC) 10 mg tablet Take 1 tablet (10 mg total) by mouth in the morning. Active hydroCHLOROthia zide (MICROZIDE) 12.5 mg capsule Take 1 capsule (12.5 mg total) by mouth daily. Active rosuvastatin (CRESTOR) 10 mg tablet Take 1 tablet (10 mg total) by mouth in the morning. Active traZODone (DESYREL) 100 mg tablet Take 1.5 tablets (150 mg total) by mouth nightly as needed for sleep. Active ferrous sulfate 325 (65 FE) mg tabletIndicatio ns:iron deficiency anemia Take 1 tablet (325 mg total) by mouth daily with breakfast Indications: anemia from inadequate iron. Active baclofen (LIORESAL) 20 mg tabletIndicatio ns:muscle spasticity of spinal origin Take 1 tablet (20 mg total) by mouth 3 (three) times a day Indications: muscle spasms caused by a spinal disease. Active clopidogreL (PLAVIX) 75 mg tablet Take 1 tablet (75 mg total) by mouth. Active furosemide (LASIX) 40 mg tablet Take 1 tablet (40 mg total) by mouth. Active Active Problems Problem Noted Date Diagnosed Date HLD (hyperlipidemia) 07/02/2023 Dizziness 03/21/2023 Essential hypertension 03/21/2023 Migraine with aura and witho ut status migrainosus, not intractable 02/20/2023 Recurrent major depressive disorder, in full rem ission 02/20/2023 Coronary atherosclerosis 03/23/2020 Overview (07/02/2023): Images from the original note were not included. 02/21/22 Echo Last Assessment & Plan: Coronary artery disease is stable Continue GDMT- ASA, crestor, toprol, lisinopril- HCTZ continue risk factor modifications- heart healthy diet, regular exercise as tolerated and continue all medications. mod dz to LAD & RCA - iFR unremarkable; mild dz LCX Images from the original note were not included. 02/21/22 Echo Last Assessment & Plan: Coronary artery disease is stable Continue GDMT- ASA, crestor and toprol continue risk factor modifications- heart healthy diet, regular exercise as tolerated and continue all medications. Carotid artery stenosis 02/24/2020 Overview (07/02/2023): Images from the original note were not included. Last Assessment & Plan: F/U with vascular surgery for monitoring Images from the original note were not included. Last Assessment & Plan: F/U with vascular surgery for monitoring Last Assessment & Plan: S/p right CEA previously and subsequent restenosis. Just had carotid stenting in 05/04 On ASA, PLAVIX and statin. Status post placement of implantable loop record er 04/08/2018 Overview (06/17/2018): [employer] Loop CVA (cerebral vascular accident) 04/05/2018 Immunizations No known immunizations Family History Medical History Relation Name Comments Heart attack Brother x2 Cancer Father Brain Tumor Mother Relation Name Status Comments Brother x2 Father Mother Social History Tobacco Use Types [...] 03/15 PHQ-2 Answer Date Recorded Total Score 7 03/20/2023 Childcare Answer Date Recorded Childcare Unknown 07/16/2018 [...] Sign Reading Time Taken Comments Blood Pressure 150/64 07/02/2023 8:53 AM EDT Pulse 56 07/02/2023 8:53 AM EDT Temperature 36.5 C (97.7 F) 07/24/2018 12:23 PM EDT Respiratory Rate 18 07/24/2018 12:23 PM EDT Oxygen Saturation 98% 07/24/2018 12:23 PM EDT Inhaled Oxygen Concentration - - Weight 62.4 kg (137 lb 8 oz) 07/02/2023 8:53 AM EDT Height 152.4 cm (5') 07/02/2023 8:53 AM EDT Body Mass Index 26.85 07/02/2023 8:53 AM EDT Plan of Treatment Health Maintenance Due Date Last Done Comments Zoster (Shingles) Vaccine (1 of 2) 1998 Fall Risk Screening 2013 COVID-19 Vaccine (2 - 2023-2 5 season) 2023 06/11/2020 Depression Screening 03/20/2024 03/20/2023 Tobacco Screening 07/01/2024 07/02/2023 Influenza Vaccine 10/12/2024 11/24/2022, , 11/26/2020, Additional history exists DTaP,Tdap and Td Vaccines (2 - Tdap) 11/18/2030 11/18/2020 Goals Goal Patient Goal Type Associated Problems Recent Progress Patient-Stated? Author safe discharge home General Yes Bryanna Osorio RN Note: Evaluation of progress towards goal: return home with self care and family support safe discharge home General Yes Bryanna Osorio RN Note: Evaluation of progress towards goal: Return home with self care and family support and resume outpatient therapy. Medical Devices Implanted Type Area Engine Assembler Device Identifier Shelf Expiration Date Model / Serial / Lot Sys Crd Rvl Linq Rpl [id number] - [id number] - [id number] Implanted:Qty: 1 on 04/08/[address] [facility] Other Implant [employer] CARD RHYTHM DEVICES 03/10/2019 LINQSYS / [id number] / Insurance [facility] / [facility] MEDICARE Advance Directives * Full Code (Latest Code Status on File) Date Activated Date Inactivated Comments 07/22/2018 6:33 AM 07/24/2018 4:48 PM * Full Code Date Activated Date Inactivated Comments 04/05/2018 3:35 PM 04/10/2018 5:18 PM * Full Code Date Activated Date Inactivated Comments 04/05/2018 10:14 AM 04/05/2018 3:35 PM Care Teams E Commerce Strategist Relationship Specialty Start Date End Date Gerry Godwin MD PCP - General Family Medicine 04/07/18
--- OUTSIDE RECORDS SUMMARY | 2024-08-06 07:29 | XMS_ITS | Encounter Summary ---
Author Organization [employer] Address [facility] [id number] [address] [place] [address] Care Team Providers Care Clinical Science Liaison Name Role Phone Gerry Godwin MD Primary Care Provider [phone] Encounter Details Date Type Department Care Team (Late st Contact Info) Description 02/19/2023 Orders Only [facility] [address] [place] [id number] Ref Prov, [place] [address] Social History Tobacco Use Types Packs/Day Years [...] outpatient therapy. documented as of this encounter Procedures Procedure Name Priority Date/Time Associated Diagnosis Comments MR BRAIN WO CONT Routine 11/22/2022 8:23 AM EDT documented in this encounter Results * MR brain without contrast (11/22/2022 8:23 AM EDT) Anatomical Region Laterality Modality Neuro, Head, Head and Neck, Neuro [place] N/A Magnetic Resonance us Not In System Ref Prov IMG MRI ORDERABLES Final Result documented in this encounter Visit Diagnoses Not on filedocumented in this encounter Additional Health Concerns Assessment Noted Time PHQ-9 Depression Total Score: 2 08/26/19 19 3:00 PM EDT documented as of this encounter Care Teams Clinical Science Liaison Relationship Specialty Start Date End Date Gerry Godwin MD PCP - General Family Medicine 04/07/18 documented as of this encounter
--- OUTSIDE RECORDS SUMMARY | 2024-08-06 07:29 | XMS_ITS | Referral Summary ---
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 Acti ve baclofen (Lioresal) 20 mg tablet baclofen 20 mg tablet Active clonazePAM (KlonoPIN) 0.5 mg tablet clonazepam 0.5 mg tablet Active metoprolol succinate XL (Toprol-XL) 25 mg 24 hr tablet Take 25 mg by mouth once daily as directed. Active QUEtiapine (SEROquel) 50 mg tablet quetiapine 50 mg tablet Active gabapentin (Neurontin) 100 mg capsule gabapentin 100 mg capsule Active ferrous sulfate 325 (65 Fe) MG tablet Take 65 mg by mouth with breakfast. Active traZODone (Desyrel) 100 mg tablet Take 150 mg by mouth. Active albuterol (ProAir HFA) 90 mcg/actuation inhaler Active dexAMETHasone (Decadron) 6 mg tablet Active lisinopriL-hydroch lorothiazide 10-12.5 mg tablet Take 1 tablet every day by oral route for 90 days. Active topiramate 50 mg tablet Active furosemide (Lasix) 40 mg tabletIndications: Cerebrovascular accident (CVA), unspecified mechanism (CMS/HCC),Atherosc lerosis of squaxin coronary artery of squaxin heart without angina pectoris,Primary hypertension,SARAVIA (dyspnea on exertion),Bilatera l leg edema,Mixed hyperlipidemia Take 1 tablet (40 mg) by mouth in the morning. 30 tablet 11 02/13/19 24 Active Additional Information Patient taking differently: 10 mgoral Daily, Reported on 09/11/2023 amLODIPine (Norvasc) 2.5 mg tabletIndications: Primary hypertension Take 1 tablet (2.5 mg) by mouth once daily as directed. 90 tablet 3 08/26/19 24 025 Active rosuvastatin (Crestor) 20 mg tabletIndications: Coronary artery disease involving squaxin coronary artery of squaxin heart without angina pectoris,Carotid artery stenosis, asymptomatic, bilateral Take 1 tablet (20 mg) by mouth at bedtime. 90 tablet 3 08/26/19 24 025 Active ubrogepant (Ubrelvy) 100 mg tablet Take 100 mg by mouth once daily as directed. Active furosemide (Lasix) 20 mg tabletIndications: Edema, unspecified type Take 1 tablet (20 mg) by mouth in the morning. 90 tablet 3 10/31/19 24 025 Active Active Problems Problem Noted Date Diagnosed Date Acute diffuse otitis externa of both ears 2024 Infection due to extended sp ectrum beta lactamase (ESBL) producing bacteria 05/05/2024 Overview (07/22/2024): ESBL E coli urine CRYSTAL (generalized anxiety disorder) 01/21/2024 Overview (07/22/2024): Med agreement signed: 01/21/24 Heart failure, unspecified 01/21/2024 Iron deficiency 01/21/2024 Muscle spasm 01/21/2024 Psychophysiological insomnia 01/21/2024 Dysuria 09/11/2023 Incontinence without sensory awareness Internal carotid artery stent present 09/11/2023 UTI (urinary tract infection) 09/11/2023 White matter disease 09/11/2023 Urinary tract infection symptoms 2023 Overview (09/11/2023): Last Assessment & Plan: Patient reports urinary symptoms - x 1 week. Has dysuria, foul smelling urine UA in office c/w UTI Will call in oral bactrim for the patient. Peripheral vertigo involving left ear 05/15/2023 Overview (09/11/2023): Last Assessment & Plan: Persistent, accompanied with poor balance, dizziness and unstable gait. No evidence of stroke on MRI. No new neurological symptoms. No tinnitus, hearing difficulty. Prior hx of CVA. Patient seen by vascular surgery. Symptoms started in jan, progressively worsening. Trial of meclizine, ordered vestibular rehab Dizziness and giddiness 03/21/2023 Overview (09/11/2023): Last Assessment & Plan: Dizziness and giddiness. Unstable gait. 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 JASEN (acute kidney injury) 03/14/20232023 AMS (altered mental status) 03/14/2023 020 02/2023 Anemia 03/14/2023 03/14/2023 Aphasia due to acute stroke 03/14/2023 0202/2023 Confusion 03/14/2023 03/14/2023 Dysphagia 03/14/2023 03/14/2023 Dystonia 03/14/2023 03/14/2023 H/O traumatic brain injury 03/14/202303/14 Headache 03/14/2023 03/14/2023 Impaired mobility and activities of daily living 03/14/2023 03/14/2023 Encounter for prophylactic measures, unspecified 03/14/2023 03/14/2023 Hospital discharge follow-up 03/06/202302/2023 Overview (03/14/2023): Last Assessment & Plan: Patient recently admitted for worsening neurological symptoms [...] BP is well controlled. No changes needed. SARAVIA (dyspnea on exertion) 02/26/2023 Assessment & Plan (02/26/2023 2:17 PM EST): SARAVIA and leg edema- recommended to increase lasix to 40 mg daily for diuresis and repeat BMP next week Dysarthria 02/20/2023 03/14/2023 History of cerebrovascular a ccident (CVA) with residual deficit 02/20/2023 03/14/2023 Migraine with aura and witho ut status migrainosus, not intractable 02/20/2023 03/14/2023 Overflow incontinence of urine 02/20/2023 0 03/14/2023 Overview (03/14/2023): Last Assessment & Plan: Patient reports for over past 6 months, [...] urine culture. Will also refer to Urology. Recurrent major depressive disorder, in full rem ission 02/20/2023 03/14/2023 URTI (acute upper respiratory infection) 024 03/14/2023 Overview (03/14/2023): Last Assessment & Plan: Patient had reported symptoms of cough in the morning and had asked for testing. Respiratory panel is negative for any influenza, COVID. Symptoms resolved. Denies cough, SOB, nasal, chest congestion. Bradycardia 03/05/2022 Overview (03/05/2022): Images from the original note were not included. Discharge summary- 11/2021 Assessment & Plan (03/05/2022 11:43 AM EST): Heart rate stable- 69 bpm Currently remains on toprol 25 mg daily. Denied lightheadedness/dizziness or syncope Bilateral lower extremity edema 03/05/2022 Overview (03/05/2022): Images from the original note were not included. Assessment & Plan (03/14/2023 2:21 PM EST): Continue lasix 20 mg daily and edema is improved Assessment & Plan (03/05/2022 11:05 AM EST): Evaluated by Vein specialist- Dr Walsh, Dr Juarez- vascular surgery Recommended lymphedema clinic. Atypical angina 03/05/2022 Assessment & Plan (03/05/2022 11:40 AM EST): Will start imdur 30 mg daily, d/w pt about headache as side effect and this should resolve after some time of taking imdur- if H/a does not resolve then we will stop medication. D/w pt that this may lower her b/p and to call office for any concerns. Mixed hyperlipidemia 01/19/2022 Assessment & Plan (02/13/2023 3:15 PM EST): Lipid abnormalities are well controlled, continue crestor Assessment & Plan (03/05/2022 11:42 AM EST): continue crestor 10 mg Assessment & Plan (01/19/2022 9:55 AM EST): Continue crestor 01/18/22 Chol 125, HDL 69, Trig 80. LDL 40 Coronary atherosclerosis 03/23/2020 Overview (03/05/2022): Images from the original note were not included. 02/21/22 Echo Assessment & Plan (03/14/2023 2:26 PM EST): Coronary artery disease is stable Continue GDMT- ASA, crestor, toprol, lisinopril- HCTZ continue risk factor modifications- heart healthy diet, regular exercise as tolerated and continue all medications. Assessment & Plan (02/13/2023 3:13 PM EST): Coronary artery disease is stable Continue GDMT- ASA, crestor and toprol continue risk factor modifications- heart healthy diet, regular exercise as tolerated and continue all medications. Assessment & Plan (03/05/2022 11:39 AM EST): Continue risk factor modifications- heart healthy diet, regular exercise as tolerated and continue all medications. Cpntinue GDMT- ASA, crestor, toprol, will start imdur. Assessment & Plan (01/19/2022 9:56 AM EST): Coronary artery disease is stable Continue GDMT- ASA, toprol and crestor Carotid artery stenosis 02/24/2020 Overview (03/05/2022): Images from the original note were not included. Assessment & Plan (03/05/2022 11:41 AM EST): F/U with vascular surgery for monitoring Assessment & Plan (01/19/2022 9:56 AM EST): Continue crestor F/U with vascular surgery Cerebrovascular accident 02/24/2020 Assessment & Plan (02/13/2023 3:13 PM EST): F/U with neuro Status post placement of implantable loop record er 04/08/2018 Overview (01/18/2022): [employer] Loop Hypertension 06/22/2009 Assessment & Plan (03/14/2023 2:25 PM EST): Hypertension is well controlled Continue all meds Assessment & Plan (02/13/2023 3:14 PM EST): Hypertension is elevated, currently will increase lasix to daily and increase potassium, Repeat BMP in 1 week Continue norvasc 2.5 mg Renal function normal Assessment & Plan (03/05/2022 11:42 AM EST): Hypertension is 144/86- at home she states b/p is typicaly 130/80 or less Will add imdur to regime for angina Continue toprol, lasix Assessment & Plan (01/19/2022 9:56 AM EST): Hypertension is uncontrolled 154/83 Continue toprol Contusion of knee 04/09/2007 Knee joint replacement by other means 04/09/2007 Osteoarthrosis, unspecified whether generalized or localized, lower leg 04/09/2007 Reflex sympathetic dystrophy of lower limb 04/09 Tear of medial cartilage or meniscus of knee, cu rrent 04/09/2007 Immunizations Immunization Administration Dates Next Due DTP 11/18/2020 Influenza, High Dose Seasonal, Preservative Free 12/22/2018 Influenza, High-dose Seasona l, Quadrivalent, Preservative Free 12/09/2019 Influenza, Seasonal, Quadrivalent, Adjuvanted ,11/26/2020 Clarence Sars-Cov-2 Vaccination 06/11/2020 Novel [id number], preservative-free 02/17 Social History Tobacco Use Types Packs/Day Years Used Date Smoking Tobacco: Never Smokeless Tobacco: Never Tobacco Cessation:Counseling Given: Not Answered Alcohol Use Standard Drinks/Week Comments Yes 0 (1 standard drink = 0.6 oz pur e alcohol) occasional [place] Safety & Environment Answer Date Rec orded Fear of Current or Ex-Partner Not on file Emotionally Abused Not on file 04/04/2023 Physically Abused Not on file 04/04/2023 Sexually Abused Not on file 04/04/2023 Physically or Sexually Abused Not on file Comments Unknown Sex and Gender Information Value Date Recorded Sex Assigned at Not on file Legal Sex Female 12:33 AM EDT Gender Identity Not on file Sexual Orientation Not on file Last Filed Vital Signs Vital Sign Reading Time Taken Comments Blood Pressure 127/62 07/22/2024 10:59 AM EDT Pulse 66 07/22/2024 10:59 AM EDT Temperature - - Respiratory Rate - - Oxygen Saturation 99% 07/22/2024 10:59 AM EDT Inhaled Oxygen Concentration - - Weight 69.9 kg (154 lb) 07/22/2024 10:59 AM EDT Height 162.6 cm (5' 4 ) 07/22/2024 10:59 AM EDT Body Mass Index 26.43 07/22/2024 10:59 AM EDT Plan of Treatment Not on file Insurance [employer] Care Teams Department Helper Relationship Specialty Start Date End Date Aleena Collado MD [address] [place] [address] PCP - General Nurse Practitioner 07/21/24
--- OUTSIDE RECORDS SUMMARY | 2024-08-06 07:29 | XMS_ITS | Encounter Summary ---
Author Organization [facility] Address [address] [place] [address] Care Team Providers Care Director Of Public Safety Name Role Phone Shaikh PEEWEE Day Primary Care Provider [phone] Aleena Collado STERILISATION TECHNICIAN Unavailable [phone] Gerry Godwin MD Primary Care Provider [phone] Shaikh PEEWEE Day Unavailable [phone] Obed Walls DO Unavailable [phone] Unallocated, [facility] Provider Primary Care Provi neftali Vish Zazueta DO Unavailable Ynes Snyder STERILISATION TECHNICIAN Unavailable [phone] Jessica Ceballos NP Unavailable Unavailable Gerry Godwin MD Primary Care Provider [phone] Milton Piña MA Unavailable [phone] Gerry Godwin MD Unavailable Encounter Details Date Type Department Care Team (Late st Contact Info) Description 08/26/2023 Clinisync Result Encounter [facility] External Department Unsolicited Shaikh Day MD [address] [place] [address] Social History Tobacco Use Types Packs/Day Years Used Date Smoking Tobacco: Former Cigarettes Passive Smoke Exposure: Current Smokeless Tobacco: Never Alcohol Use Standard Drinks/Week Comments Never 0 (1 standard drink = 0.6 oz pur e alcohol) PHQ-2 Answer Date Recorded Patient Health Questionnaire-2 Score 0 08/21/2023 Comments Unknown Sex and Gender Information Value Date Recorded Sex Assigned at Not on file Legal Sex Female 6:38 PM EDT Gender Identity Not on file Sexual Orientation Not on file documented as of this encounter Plan of Treatment Upcoming Encounters Date Type Department Care Team (Late st Contact Info) Description 08/11/2024 9:00 AM EDT Office Visit [facility] [address] [place] [address] Aleena Collado NP [address] [place] [address] documented as of this encounter Procedures Procedure Name Priority Date/Time Associated Diagnosis Comments FL MODIFIED BARIUM SWALLOW 08/26/2023 10:53 AM EDT documented in this encounter Results * FL MODIFIED BARIUM SWALLOW (08/26/2023 10:53 AM EDT) Anatomical Region Laterality Modality Radiographic Alanis ging 08/26/2023 10:5 3 AM EDT Narrative 08/26/2023 10:55 AM EDT [address] [address] Fluoroscopy Report Signed Patient: OZZIE GIFFORD MR#: [id number] : 1950 Acct:[id number] Age/Sex: 73 / F ADM Date: 08/26/23 Loc: [place] Attending Dr: Shaikh Barb Krueger Ordering Physician: Shaikh Pati Day Date of Service: 08/26/23 Procedure(s): FL modified barium swallow Accession Number(s): [id number] cc: Shaikh Pati Day [address] [address] Patient Name: OZZIE GIFFORD MRN: [id number] date: 1950 Sex: F [place]igned Patient Location: [place] Current Patient Location[place] Accession/Order Number: [id number] Exam Date: 08/26/2023 10:00 Report Date: 08/26/2023 10:53 At the request of: SHAIKH BARB Procedure: FL modified barium swallow EXAMINATION: FL modified barium swallow HISTORY: Oropharyngeal Dysphagia R13.12 FLUORO DOSE: unknown COMPARISON: No relevant comparison available. TECHNIQUE: A swallowing evaluation was performed with fluoroscopy in the usual manner. Standard level fluoroscopic mode of operation utilized. The procedure was recorded FINDINGS: ORAL PHASE: Poor clearing of the oral cavity. PHARYNGEAL PHASE: Normal swallowing. ASPIRATION: None. STRUCTURE: Normal. No visible obstruction, stricture, or dilatation. OTHER: Negative. FL/FL modified barium swallow IMPRESSION: No penetration or aspiration. Electronically authenticated by: NATACHA SANTANA Date: 08/26/2023 10:53 Dictated By: Natacha Santana M.D. Signed By: 08/26/23 1055 DD/ 1053 TD/TT: Personalization Specialist: Procedure Note Radiology, Radiologist, MD - 08/26/2023 [place] [address] Fluoroscopy Report Signed Patient: OZZIE GIFFORD BMR#: [id number] : 1950cct:[id number] Age/Sex: 73 / FADM Date: 08/26/23 Loc: [place] Attending Dr: Shaikh Barb Krueger Ordering Physician: Shaikh Pati Day Date of Service: 08/26/23 Procedure(s): FL modified barium swallow Accession Number(s): [id number] cc: Shaikh Pati Day [facility] [place] [id number] Patient Name: OZZIE GIFFORD MRN: [id number] date: 1950 Sex: F [place]igned Patient Location: [place] Current [place] Accession/Order Number: [id number] Exam Date: 08/26/2023 10:00 Report Date: 08/26/2023 10:53 At the request of: DE OLIVEIRA FAWWAD Procedure: FL modified barium swallow EXAMINATION: FL modified barium swallow HISTORY: Oropharyngeal Dysphagia R13.12 FLUORO DOSE: unknown COMPARISON: No relevant comparison available. TECHNIQUE: A swallowing evaluation was performed with fluoroscopy in theusual manner. Standard level fluoroscopic mode of operation utilized. Theprocedure was recorded FINDINGS: ORAL PHASE: Poor clearing of the oral cavity. PHARYNGEAL PHASE: Normal swallowing. ASPIRATION: None. STRUCTURE: Normal. No visible obstruction, stricture, or dilatation. OTHER: Negative. FL/FL modified barium swallow IMPRESSION: No penetration or aspiration. Electronically authenticated by: NATACHA SANTANA Date: 08/26/2023 10:53 Dictated By: Natacha Santana M.D. Signed By:08/26/23 1055 DD/ 1053 TD/TT: Personalization Specialist: Shaikh Barb VIDES IMG XR PROCEDURES Final Result documented in this encounter Visit Diagnoses Not on filedocumented in this encounter Additional Health Concerns Assessment Noted Time PHQ-9 Depression Total Score: 0 06/03/19 6:24 PM EDT documented as of this encounter Care Teams Director Of Public Safety Relationship Specialty Start Date End Date Shaikh Day MD [address] [place] [address] PCP - General Internal Medicine 05/15/23 10/02/23 Gerry Godwin MD [address] [place] [address] PCP - General Family Medicine 10/03/23 12/02/23 Shaikh Day MD [address] [place] [address] PCP - Donald ZARCO 10/13/23 02/11/24 Unallocated, Noms MD [address] [place] [address] PCP - General Family Medicine 12/03/23 12/11/23 Gerry Godwin MD [address] [place] [address] PCP - General Family Medicine 12/12/23 Gerry Godwin MD [address] [place] [address] PCP - Donald ZARCO 04/11/24 Aleena Collado NP [address] [place] [address] Nurse Practitioner Family Medicine 10/03/23 Obed Walls DO [address] [place] [address] Otolaryngology 12/02/23 Vish Zazueta DO [address] [address] Referring Physician Neurology 12/09/23 Ynes Snyder NP [address] [address] Nurse Practitioner Neurology 12/09/23 Jessica Ceballos NP [address] [address] Nurse Practitioner Neurology 12/09/23 Milton Piña MA [address] [place] [address] Family Medicine 01/21/24 documented as of this encounter
--- OUTSIDE RECORDS SUMMARY | 2024-08-06 07:29 | XMS_ITS | Clinical Summary ---
Author Organization [facility] Address [address] [place] [address] Care Team Providers Care Trade Facilitator Name Role Phone Aleena Collado MD Primary Care Provider [phone] Allergies Active Allergy Reactions Criticality Noted Date [...] accident (CVA), unspecified mechanism (CMS/HCC),Atherosc lerosis of [place]ians[place] coronary artery of [place] heart without angina pectoris,Primary hypertension,SARAVIA (dyspnea on [...] 20 mg tabletIndications: Coronary artery disease involving [place] coronary artery of [place] heart without angina pectoris,Carotid artery stenosis, asymptomatic, [...] 03/14/2023 03/14/2023 Aphasia due to acute stroke 03/14/202302/2023 Confusion 03/14/2023 03/14/2023 Dysphagia 03/14/2023 03/14/2023 Dystonia [...] or meniscus of knee, cu rrent 04/09/2007 Encounters Date Type Department Care Team Description 07/22/2024 10:45 AM EDT Office Visit [facility] [place] [address] [place] [address] Ruben Carrillo MD Coronary artery disease involving [place] coronary artery of [place] heart with other form of angina pectoris (Primary Dx); Primary hypertension; Carotid artery stenosis, asymptomatic, bilateral; Shortness of breath from Last 3 Months Immunizations Immunization Administration Dates Next Due DTP 11/18/2020 Influenza, High Dose Seasonal, Preservative Free 12/22/2018 Influenza, High-dose Seasona l, Quadrivalent, Preservative Free 12/09/2019 Influenza, Seasonal, Quadrivalent, Adjuvanted ,11/26/2020 Clarence Sars-Cov-2 Vaccination 06/11/2020 Novel [id number], preservative-free 02/17 Family History Medical History Relation Name Comments Heart attack Brother Hypertension Father Hypertension Mother Relation Name Status Comments Brother Father Mother Social History Tobacco Use Types [...] 07/22/2024 10:59 AM EDT Plan of Treatment Health Maintenance Due Date Last Done Comments Medicare Annual Wellness (AWV) 1950 Depression Screening 1960 Zoster Vaccines (1 of 2) 1998 Adult Tetanus 03/25/2011 03/25/2001 Fall Risk Screening 2013 COVID-19 Vaccine ( season) 2023 06/11/2020 Colonoscopy Discontinued 05/12/2021 Colorectal Cancer Screening Discontinued Pneumococcal Vaccine: 50+ Years Completed 11/24/2022 Influenza Vaccine Completed 11/09/2023, , 01/20/2022, Additional history exists CT Colonography Discontinued FIT-DNA Discontinued FIT Discontinued FOBT Discontinued HIB Vaccines Aged Out No longer eligi ble based on patient's age to complete this topic HPV Vaccines Aged Out No longer eligi ble based on patient's age to complete this topic IPV Vaccines Aged Out No longer eligi ble based on patient's age to complete this topic Meningococcal B Vaccine Aged Out No l onger eligible based on patient's age to complete this topic Meningococcal Vaccine Aged Out No sandra ashlie eligible based on patient's age to complete this topic Rotavirus Vaccines Aged Out No longer eligible based on patient's age to complete this topic Sigmoidoscopy Discontinued Insurance [employer] MED[employer] ADV[employer]AGE Care Teams Trade Facilitator Relationship Specialty Start Date End Date Aleena Collado MD [address] [place] [address] PCP - General Nurse Practitioner 07/21/24
--- OUTSIDE RECORDS SUMMARY | 2024-08-06 07:29 | XMS_ITS | Encounter Summary ---
Author Organization [facility] Address [address] [place] [address] Care Team Providers Care Meat Washer Name Role Phone Shaikh PEEWEE Day Primary Care Provider [phone] Aleena Collado NP Unavailable [phone] Gerry Godwin MD Primary Care Provider [phone] Shaikh PEEWEE Day Unavailable [phone] Obed Walls DO Unavailable Unallocated, Noms Provider Primary Care Provi neftali Vish Zazueta DO Unavailable Ynes Snyder CHAIN SPLITTER Unavailable [phone] Jessica Ceballos NP Unavailable Unavailable Gerry Godwin MD Primary Care Provider [phone] Milton Piña MA Unavailable [phone] Gerry Godwin MD Unavailable Encounter Details Date Type Department Care Team (Late st Contact Info) Description 07/17/2023 Orders Only [facility] [address] [place] [address] Carmen Quintero NP [address] [place] [address] Social History Tobacco Use Types Packs/Day Years Used Date Smoking Tobacco: Former Cigarettes Passive Smoke Exposure: Current Smokeless Tobacco: Never Alcohol Use Standard Drinks/Week Comments Never 0 (1 standard drink = 0.6 oz pur e alcohol) PHQ-2 Answer Date Recorded Patient Health Questionnaire-2 Score 0 2023 Comments Unknown Sex and Gender Information Value Date Recorded Sex Assigned at Not on file Legal Sex Female 6:38 PM EDT Gender Identity Not on file Sexual Orientation Not on file documented as of this encounter Plan of Treatment Upcoming Encounters Date Type Department Care Team (Late st Contact Info) Description 08/11/2024 9:00 AM EDT Office Visit [facility] [address] [place] [address] Aleena Collado NP [address] [place] [address] documented as of this encounter Procedures Procedure Name Priority Date/Time Associated Diagnosis Comments SCANNED LABS Routine 07/17/2023 2:06 PM EDT documented in this encounter Results * SCANNED LABS (07/17/2023 2:06 PM EDT) Carmen Quintero CHAIN SPLITTER LAB CHG PERFORMABLES Final Resu lt documented in this encounter Visit Diagnoses Not on filedocumented in this encounter Additional Health Concerns Assessment Noted Time PHQ-9 Depression Total Score: 0 06/03/19 24 6:24 PM EDT documented as of this encounter Care Teams Meat Washer Relationship Specialty Start Date End Date Shaikh Day MD [address] [address] PCP - General Internal Medicine 05/15/23 10/02/23 Gerry Godwin MD [address] [place] [address] PCP - General Family Medicine 10/03/23 12/02/23 Shaikh Day MD [address] [place] [address] PCP - Donald ZARCO 10/13/23 02/11/24 Unallocated, Kristi Nichole MD [address] [place] [address] PCP - General Family Medicine 12/03/23 12/11/23 Gerry Godwin MD [address] [place] [address] PCP - General Family Medicine 12/12/23 Gerry Godwin MD [address] [place] [address] PCP - Donald ZARCO 04/11/24 Aleena Collado NP [address] [place] [address] Nurse Practitioner Family Medicine 10/03/23 Obed Walls DO [address] [place], [place] [address] Otolaryngology 12/02/23 Vish Zazueta DO [address] [address] Referring Physician Neurology 12/09/23 Ynes Snyder, SANDRA [address] [address] Nurse Practitioner Neurology 12/09/23 Jessica Ceballos NP [address] [address] Nurse Practitioner Neurology 12/09/23 Milton Piña MA [address] [place] [address] Family Medicine 01/21/24 documented as of this encounter
--- OUTSIDE RECORDS SUMMARY | 2024-08-06 07:29 | XMS_ITS | Encounter Summary ---
Author Organization [facility] Address [address] [place] [address] Care Team Providers Care Learning And Development Coordinator Name Role Phone Aleena Collado TRAVELING PLANT OPERATOR Unavailable [phone] Obed Walls DO Unavailable Vish Zazueta DO Unavailable [phone] Ynes Snyder TRAVELING PLANT OPERATOR Unavailable [phone] Jessica Ceballos NP Unavailable Unavailable Gerry Godwin MD Primary Care Provider [phone] Milton Piña MA Unavailable [phone] Gerry Godwin MD Unavailable Encounter Details Date Type Department Care Team (Late st Contact Info) Description 08/03/2024 Patient Outreach [facility] [address] [place] [address] Milton Piña MA [address] [place] [address] Social History Tobacco Use Types [...] week 01/27/2024 How often do you attend caodaism or alevism serv ices? Never 01/27/2024 Do you belong to any clubs o r organizations such as caodaism groups, unions, fraternal or athletic groups, or [...] Recorded Patient Health Questionnaire-2 Score 0 09/09/2023 [facility] - Occupational Stress [...] any time in the past 12 m [facility], were you homeless or living in a penitentiary (including now)? No 01/27/2024 Comments Unknown Sex and Gender Information Value Date Recorded Sex Assigned at Not on file Legal Sex Female 6:38 PM EDT Gender Identity Not on file Sexual Orientation Not on file documented as of this encounter Progress Notes * Milton Piña MA - 08/03/2024 11:47 AM EDT Farm Machinery Set Up Mechanic called [facility] Scheduling for update on Prior Auth for pt's cardiac testing. Per Niesha the testing was approved and the patient is scheduled for 08/20. documented in this encounter Plan of Treatment Upcoming Encounters Date Type Department Care Team (Late st Contact Info) Description 08/11/2024 9:00 AM EDT Office Visit [facility] [address] [place] [phone] Aleena Collado NP [address] [place] [address] documented as of this encounter Visit Diagnoses Diagnosis Chronic heart failure, unspecified heart failure type (HCC)- Primary Primary hypertension Unspecified essential hypertension Essential (primary) hypertension Unspecified essential hypertension documented in this encounter Additional Health Concerns Assessment Noted Time PHQ-9 Depression Total Score: 0 06/03/19 24 6:24 PM EDT A fall risk assessment has been complete d for the patient 01/27/2024 9:56 AM EST documented as of this encounter Care Teams Learning And Development Coordinator Relationship Specialty Start Date End Date Gerry Godwin MD [address] [place] [address] PCP - General Family Medicine 12/12/23 Gerry Godwin MD [address] [place] [address] PCP - Donald ZARCO 04/11/24 Aleena Collado NP [address] [place] [address] Nurse Practitioner Family Medicine 10/03/23 Obed Walls DO [address] [place] [address] Otolaryngology 12/02/23 Vish Zazueta DO [address] [address] [place] [address] Referring Physician Neurology 12/09/23 Ynes Snyder NP [address] [address] Nurse Practitioner Neurology 12/09/23 Jessica Ceballos NP [address] [address] Nurse Practitioner Neurology 12/09/23 Milton Piña, HAROLDO [address] [place] [address] Family Medicine 01/21/24 documented as of this encounter
--- OUTSIDE RECORDS SUMMARY | 2024-08-06 07:29 | XMS_ITS | Encounter Summary ---
Author Organization [facility] Address [address] [place] [address] Care Team Providers Care Counter Server Name Role Phone Shaikh PEEWEE Day Primary Care Provider [phone] Aleena Collado GUEST ADVISOR Unavailable [phone] Gerry Godwin MD Primary Care Provider [phone] Shaikh PEEWEE Day Unavailable [phone] Obed Walls DO Unavailable Unallocated, Noms Provider Primary Care Provi neftali Vish Zazueta DO Unavailable Ynes Snyder GUEST ADVISOR Unavailable [phone] Jessica Ceballos NP Unavailable Unavailable Gerry Godwin MD Primary Care Provider [phone] Milton Piña MA Unavailable [phone] Gerry Godwin MD Unavailable Encounter Details Date Type Department Care Team (Late st Contact Info) Description 08/26/2023 [facility] [address] [place] [address] Shaikh Day MD [address] [place] [address] Social History Tobacco Use Types Packs/Day Years [...] Visit [facility] [address] [place] [address] Aleena Collado NP [address] [place] [address] documented as of this encounter Procedures Procedure Name Priority Date/Time Associated Diagnosis Comments SCANNED LABS Routine 08/26/2023 2:08 PM EDT documented in this encounter Results * SCANNED LABS (08/26/2023 2:08 PM EDT) us Shaikh Barb VIDES LAB CHG PERFORMABLES Final Resu lt documented in this encounter Visit Diagnoses Not on filedocumented in this encounter Additional Health Concerns Assessment Noted Time PHQ-9 Depression Total Score: 0 06/03/19 24 6:24 PM EDT documented as of this encounter Care Teams Counter Server Relationship Specialty Start Date End Date Shaikh Day MD [address] [place] [address] PCP - General Internal Medicine 05/15/23 10/02/23 Gerry Godwin MD [address] [place] [address] PCP - General Family Medicine 10/03/23 12/02/23 Shaikh Day MD [address] [place] [address] PCP - Donald ZARCO 10/13/23 02/11/24 Unallocated, Kristi Nichole MD [address] [place] [address] PCP - General Family Medicine 12/03/23 12/11/23 Gerry Godwin MD [address] [place] [place] [address] PCP - General Family Medicine 12/12/23 Gerry Godwin MD [address] [place] [place] [address] PCP - Donald ZARCO 04/11/24 Aleena Collado NP [address] [place] [place] [address] Nurse Practitioner Family Medicine 10/03/23 Obed Walls DO [address] [place] [address] Otolaryngology 12/02/23 Vish Zazueta DO [address] [address] Referring Physician Neurology 12/09/23 Ynes Snyder, SANDRA [address] [address] Nurse Practitioner Neurology 12/09/23 Jessica Ceballos NP [address] [address] Nurse Practitioner Neurology 12/09/23 Milton Piña MA [address] [place] [address] Family Medicine 01/21/24 documented as of this encounter
--- OUTSIDE RECORDS SUMMARY | 2024-08-06 07:30 | XMS_ITS | CCD ---
Author Organization [facility] Care Team Providers Care Nozzleman Name Role Phone Denver Juarez Unavailable [phone] Susie Arrington Unavailable MD Eddy Day Primary Care Provider MD Susie Arrington Attending Provider MD Gerry Godwin Primary Care Provider MD Eddy Day Attending Provider MD Denver Juarez Attending Provider Ilda Das Unavailable MD Eddy Day Primary Care Provider MD Gerry Godwin Primary Care Provider [phone] MD Eddy Day Attending Provider DO Rafiq Bahena Emergency Provider [phone] Al MD Ashleigh Roche Admit Provider Al MD Ashleigh Roche Attending Provider LESTER Castañeda Other Provider Unavailable DO Tye Mendoza Other Provider MD Betito Arellano Other Provider MD Aneesh Zendejas Other Provider MD Shavon Leos Other Provider MD Brayan Ribera Other Provider CÉSAR Arenas Other Provider MD Shefali Garibay Other Provider MD Vannessa Nava Other Provider MD Alissa Young Other Provider Jose [facility] Maddie Westbrook Other Provider [phone] MD Anna Valladares Attending Provider NO FAMILY PHYSICIAN, 837 Primary Care Unavail able MIKE VIDES, - LUIS Attending Unavaila MD Eddy Swenson Primary Care Provider [phone] DO Rafiq Bahena Emergency Provider Al MD Ashleigh Roche Admit Provider MD Anna Valladares Attending Provider [phone] MD Gerry Godwin Primary Care Provider MD Eddy Day Attending Provider [phone] Admitting Unavailable DAVIDLIZ Attending Unavailable FAWWAD, DE OLIVEIRA H Primary [...] FAWWAD, DE OLIVEIRA H Primary Care Unavailable LAONSO JACOBS Admitting Unavailable ALONSO JACOBS Attending Unavailable [...] CABAN Consulting Unavailable DAVID, LIZ Admitting Unavailable DAVIDLIZ IVAN Attending Unavailable FAWWAD, DE OLIVEIRA H Primary Care Unavailable FAWWAD, DE OLIVEIRA H Admitting Unavailable FAWWAD, DE OLIVEIRA H Attending Unavailable FAWWAD, DE OLIVEIRA H Primary Care Unavailable DR MITZI CHAU Consulting Unavailable FAWWAD, DE OLIVEIRA H Consulting Unavailable RAYMUNDO, DIANA Admitting Unavailable RAYMUNDO, DIANA Attending Unavailable FAWWAD, DE OLIVEIRA H Primary Care Unavailable RAYMUNDO, DIANA Consulting Unavailable FAWWAD, DE OLIVEIRA H Admitting [...] FAWWAD, DE OLIVEIRA H Primary Care Unavailable TATO, DR GERRY Carrasco Admitting Unavailable TATO, DR GERRY Carrasco Attending Unavailable CHERISE, DR INDRA Carias Consulting Unavaildelia LUONG, DR INDRA Carias Procedure Practitioner Julia vailable TATO, DR GERRY Carrasco Consulting Unavailable ALONSO JACOBS Procedure Practitioner Unavail able ALONSO JACOBS Consulting Unavailable LYNN OLSON Consulting Unavailable INDRA DE LA ROSA Consulting Unavailable SWAPNIL LARRY Consulting Unavailable FAWWAD, DE OLIVEIRA H Primary Care Unavailable EDDI, SHERRI Consulting Unavailable EDDI, SHERRI Admitting Unavailable EDDI, SHERRI Attending Unavailable MARYSE LANGFORD Consulting Unavailable SHAIKH DAY H Attending Unavailable BARB, H Primary Care Unavailable FASHAIKH RANDALL H Consulting Unavailable FAPRAKASH, DE OLIVEIRA H Admitting Unavailable FAPRAKASH, H Primary Care Unavailable RADHA, ALONSO Admitting Unavailable ALONSO JACOBS Attending Unavailable JEAN-PIERRE GIRALDO Consulting Unavailable Natacha Cerna Consulting Unavailable ALONSO JACOBS Consulting Unavailable MD Lazaro Dayikh Primary Care Provider [phone] CÉSAR Harris Attending Provider Earline Harris Unavailable Kori Temple Unavailable SHAIKH DAY Primary Care Physician MD Barb [facility] Primary Care Provider MD Eddy Day Attending Provider Barb VIDES [facility] Primary Care Provider MD Barb [facility] Primary Care Provider MD Denver Juarez Attending [...] Referring Unavailable NADERER, GERRY Primary Care Unavailable DUNCAN HADDAD Attending Unavailable NADERER, GERRY Referring Unavailable NADERER, GERRY Primary Care Unavailable SHAIKH DAY Referring Unavailable Orzech, Carmen X Attending Unavailable Orzech, Carmen X Attending Unavailable Orzech, Carmen X Attending Unavailable Orzech, Carmen X Admitting Unavailable MD Barb [facility] Primary Care Provider SANDRA Sumner-C Felicita Isaac Attending Provider Heaven FLORES, Cindy Unavailable Tato VIDES, Gerry Primary Care Provider Shaikh Day MD Unavailable Aime Walls DO Unavailable [phone] Unallocated , Noms Provider Primary Care Provi neftali Marbin DO, Nakul Unavailable Claudio ENTRY LEVEL FINANCE, Ynes Unavailable Tucker FLORES, Jameson Unavailable MD Barb [facility] Primary Care Provider DO Aime Walls Attending Provider Tato VIDES, Gerry Primary Care Provider Wang ZARCO, Saestacy Unavailable Unavailable Barb VIDES, [facility] Primary Care Provider Aime Walls DO Attending Provider Barb [facility] Primary Care Unavailable Denver Juarez Admitting UnavailDenver Hunter Attending Unavaildelia Day [facility] Primary Care Unavailable Hannah Still Admitting Unavailable Hannah Still Attending Unavailable Aime Walls Admitting Unavailable Aime Walls Attending Unavailable Barb [facility] Primary Care Unavailable Barb [facility] Primary Care Unavailable Denver Juarez Admitting Unavailabl Denver Clark Attending Unavailabl e Barb, [facility] Primary Care Unavailable Felicita Sumner Admitting Unavailable Felicita Sumner Attending Unavailable Denver Juarez Admitting Unavailabl e Denver Juarez Attending Unavailabl e Barb, [facility] Primary Care Unavailable BERNICE CLEMENTE Attending Unavailable BERNICE CLEMENTE Admitting Unavailable Gerry Godwin MD Primary Care Provider KAREY CLEMENTE Attending Unavailab tj CORRIEKAREY VU Attending Unavailab le CORRIEKAREY Attending Unavailab tj CLEMENTE, KAREY Carias Admitting Unavailab tj CLEMENTE, KAREY Carias Attending Unavailab CINDY Spicer Referring Unavailable KAREY CLEMENTE Attending Unavailab BERNICE García Attending Unavailable BERNICE CLEMENTE Admitting Unavailable Kori German Attending Unavailable BERNICE CLEMENTE Attending Unavailable Aichludmila ENTRY LEVEL FINANCE, Cindy Unavailable Claudio ENTRY LEVEL FINANCE, Ynes Unavailable Gerry Godwin MD Unavailable CINDY COLLADO Attending Unavailable JAMESON CEBALLOS Attending Unavailable SHAIKH DAY Attending Unavailable AICCINDY FIGUEROA Attending Unavailable CHAIM NOEL Attending Unavailable JAMESON CEBALLOS Referring Unavailable SHAIKH DAY Attending Unavailable CINDY COLLADO Attending Unavailable AIME WALLS Attending Unavailable AICHHOLCINDY Saini Referring Unavailable NAKUL ZAZUETA Attending Unavailable AICCINDY FIGUEROA Attending Unavailable BERNICE CLEMENTE Attending Unavailable Alexandr OVALLE Admitting Unavailable Alexandr OVALLE Attending Unavailable BERNICE CLEMENTE Attending Unavailable BERNICE CLEMENTE Attending Unavailable CINDY COLLADO Primary Care Physician [phone] RUBEN CARRILLO Attending Unavailable RUBEN CARRILLO Attending Unavailable BERNICE CLEMENTE Attending Unavailable BERNICE CLEMENTE Admitting Unavailable BERNICE CLEMENTE Attending Unavailable Alexandr OVALLE Admitting Unavailable Alexandr OVALLE Attending Unavailable Allergies Allergy Classification Reported Allergen(s) Allergy Type Date of Onset Reaction(s) Facility (20 sources) Penicillin G Drug Allergy 02-20-2023 Unknown [facility] (20 sources) Penicillins; 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: [PENICILLINS] Allergy to substance 02-19-2007 [facility] (1 source) Penicillin Drug Allergy 10-22-[address] [facility] (20 sources) Penicillin; 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: [penicillin] Drug Allergy [facility] Medications Current Medications Medication Drug Class(es) Dates Sig (Normalized) Sig (Original) acetaminophen 325 mg / HYDROcodone bitartrate 5 mg oral tablet (1 source) Opioid Agonist Start: 03-31-2021 take 1-2 tablets by mouth every four to six hours as needed HYDROcodone-Aceta minophen 5-325 MG 1-2 tablet as needed Orally every 4-6 hrs for 7 days Mar, Active [id number] 200 actuat albuterol 0.09 mg/actuat metered dose inhaler (5 sources) beta2-Adrenergic Agonist End: 10-22-2023 take 2 puff(s) by inhalation every four hours albuterol HFA 90 mcg/act inhaler Inhale 2 puffs every 4 (four) hours if needed for shortness of breath 10/22/2023 Discontinued (Therapy completed) amLODIPine 2.5 mg oral tablet (20 sources) Dihydropyridine Calcium Channel Jimmy Start: 08-28-2022 End: 04-20-2024 amLODIPine 2.5 mg Tab Refills(s) 0 Start Date: 03/07/23 Status: Ordered Repeat number: 1 Ascorbic Acid (20 sources) Vitamin C Start: 04-14-2024 Vitamin C See Instructions, Refills(s) 0 Start Date: 04/14/24 Status: Ordered Repeat number: 1 Start: 04-14-2024 Vitamin C See Instructions, Refills(s) 0 Start Date: 04/14/24 Status: Ordered take 1 tablet by nemesio th once daily ascorbic acid (Vitamin C) 500 MG tablet Take 500 mg by mouth Daily Active aspirin 81 mg chewable tablet (20 sources) Platelet Aggregation Inhibitor, Nonsteroidal Anti-inflammatory Drug Start: 01-16-2023 End: 04-20-2024 aspirin 81 mg Chew Tab mg tab(s), Chewed, Daily, Refills(s) 0 Start Date: 03/07/23 Status: Ordered Repeat number: 1 Start: 03-23-2020 End: 05-09-2023 take 1 tablet by mouth once daily Aspirin 81 mg Tablet,Delayed Release (Dr/Ec) Discontinued 81 MG PO Daily March 23, 2020 12:00am May 09, 2023 8:44am Start: 03-26-2019 End: 03-23-2020 take 1 tablet by mouth once daily in the morning Aspirin 81 mg tablet,chewable Discontinued 81 MG PO Every morning March 26, 2019 4:28pm March 23, 2020 12:03pm Start: 04-10-2018 End: 03-26-2019 take 1 tablet by mouth once daily Aspirin 81 mg Tablet,Chewable Discontinued 81 MG PO Daily 0 April 18, 2018 12:00am March 26, 2019 4:28pm Baclofen (20 sources) gamma-Aminobutyric Acid-ergic Agonist Start: 03-07-2023 BACLOFEN 20MG TAB BACLOFEN 20MG TAB Start Date: 03/07/23 Status: Ordered Repeat number: 1 Start: 03-07-2023 BACLOFEN 20MG TAB BACLOFEN 20MG TAB Start Date: 03/07/23 Status: Ordered Start: 04-05-2018 End: 04-20-2024 take 1 tablet by mouth in the morning, then take 1 tablet by mouth in the evening, then take 1 tablet by mouth at bedtime baclofen (Lioresal) 20 MG tablet Take 1 tablet (20 mg) by mouth in the morning and 1 tablet (20 mg) in the evening and 1 tablet (20 mg) before bedtime. 03/29/2024 Active take 1 tablet by nemesio th twice [...] tablet (20 sources) Benzodiazepine Start: 04-05-2018 End: 07-31-2024 ClonazePAM 0.5 mg Tab Refills(s) 0 Start Date: 03/07/23 Status: Ordered Repeat number: 1 take 1 tablet by nemesio th every twenty-four hours clonazePAM 0.5 MG 1 tablet at bedtime Orally Once a day Active clopidogrel 75 mg oral tablet (20 sources) P2Y12 Platelet Inhibitor Start: 12-12-2018 End: 10-22-2023 take 1 tablet by mouth once daily Clopidogrel (Plavix) 75 mg tablet Active 75 MG PO Daily 90 90 April 09, 2023 12:00am D-Mannose 500 MG capsule (20 sources) take 1 capsule by mouth once daily D-Mannose 500 MG capsule Take 500 mg by mouth Daily [facility] Active diclofenac sodium 0.01 mg/mg topical gel (6 sources) Nonsteroidal Anti-inflammatory Drug Start: 07-12-2021 Voltaren 1 % apply 1-2 grams to affected area Transdermal twice daily for 30 days Jul, Active doxycycline hyclate 100 mg oral tablet (20 sources) Tetracycline-class Drug Start: 05-08-2024 take 1 tablet by mouth in the morning doxycycline (Vibra-Tabs) 100 MG tablet Take 100 mg by mouth in the morning and 100 mg before bedtime. 05/08/2024 Active Start: 03-31-2021 take 1 capsule by [facility] every twelve hours Doxycycline Hyclate 100 MG 1 capsule Orally Twice a day for 5 day(s) Mar, Active estradiol 0.1 mg/ml vaginal cream (20 sources) Estrogen Start: 04-01-2024 estradiol (Est race) 0.1 MG/GM vaginal cream apply a pea-sized amount vaginally and around the urethra NIGHTLY TIME 3 (THREE) weeks, then 3 (THREE) times per week thereafter 04/01/2024 Active Start: 04-01-2024 Estrace 0.1 mg /g Cream See Instructions, 42.5 gm, Refill(s) 6, apply a pea-sized amount vaginally and around the urethra nightly x 3 weeks, then 3x per week thereafter, [facility] #[facility], 160, cm, 04/01/24 8:56:00 EST, Height/Length Dosing, 60, kg, 04/01/24 8:56:00 EST, Weight Dosing Start Date: 04/01/24 Status: Ordered Quantity: 42.5 Unit: g Repeat number: 7 FeroSul (2 sources) FeroSul Active FeroSul 325 mg oral tablet (16 sources) Start: 03-07-2023 take 1 mg by mouth three times daily FeroSul 325 mg oral tablet mg tab(s), Oral, TID, Refills(s) 0 Start Date: 03/07/23 Status: Ordered Repeat number: 1 Start: 03-07-2023 take 1 mg by mouth t hree times daily FeroSul 325 mg oral tablet mg tab(s), Oral, TID, Refills(s) 0 Start Date: 03/07/23 Status: Ordered ferrous sulfate 325 mg oral tablet (20 sources) Start: 04-29-2024 End: 07-28-2024 take 1 tablet by mouth at mealtime ferrous sulfate (FeroSul) 325 (65 Fe) MG tablet Indications: Iron deficiency Take 1 tablet (325 mg) by mouth in the morning. Take with meals. 90 tablet 1 04/29/2024 07/28/2024 Active Start: 11-13-2022 End: 10-22-2023 take 1 tablet by mouth at mealtime ferrous sulfate 325 (65 Fe) MG EC tablet Take 1 tablet by mouth in the morning. Take with meals. 11/13/2022 10/22/2023 Discontinued (Therapy completed) Start: 11-21-2021 End: 04-20-2024 take 1 tablet by mouth at mealtime ferrous sulfate (FeroSul) 325 (65 Fe) MG tablet Indications: Iron deficiency Take 1 tablet (325 mg) by mouth in the morning. Take with meals. 90 tablet 1 01/21/2024 04/20/2024 Active Start: 12-12-2018 End: 02-18-2020 take 1 tablet by mouth every other week Ferrous Sulfate 324 mg (65 mg iron) tablet,delayed release (DR/EC) Discontinued 324 MG PO EVERY 2 WEEKS December 12, 2018 9:27am February 18, 2020 12:28pm Start: 04-18-2018 End: 12-12-2018 take 1 tablet by mouth twice daily Ferrous Sulfate 324 mg (65 mg iron) Tablet,Delayed Release (Dr/Ec) Discontinued 324 MG PO Twice daily 60 April 18, 2018 12:00am December 12, 2018 9:28am furosemide 20 mg oral tablet (20 sources) Loop Diuretic Start: 04-01-2024 take 10 mg by mouth once daily Lasix 20 mg Tab 10 mg = 0.5 tab(s), Oral, Daily Start Date: 04/01/24 Status: Ordered Repeat number: 1 Start: 02-13-2023 End: 02-13-2024 furosemide (Lasix) 40 MG tab let Take 20 mg by mouth Daily Pt takes 20mg 02/13/2023 Active Start: 02-13-2023 End: 02-13-2024 furosemide 40 mg Tab Refills (s) 0 Start Date: 03/07/23 Status: Ordered Start: 11-21-2021 take 1 tablet by nemesio every other day Furosemide 20 mg tablet Active 20 MG PO .every other day November 20, 2021 11:00pm 20mg 2 tabs Start: 11-21-2021 take 20 mg by mouth once daily in the morning Furosemide Active 20 MG PO Every morning November 20, 2021 11:00pm take 2 tablets by mo dch every other day Furosemide 20 MG 2 tablets Orally every other day Active hydrocortisone 10 mg/ml / neomycin 3.5 mg/ml / polymyxin [id number] unt/ml otic solution (2 sources) Aminoglycoside Antibacterial, Polymyxin-class Antibacterial, Corticosteroid Start: 2024 End: 06-13-2024 avyyeovk-kvaclfpju-ifmvnbual isone (Cortisporin) otic solution Indications: Acute diffuse otitis externa of both ears Administer 4 drops into each ear in the morning and 4 drops in the evening and 4 drops before bedtime. Do all this for 10 days. 10 mL 2024 06/13/2024 Active meclizine hydrochloride 25 mg oral tablet (20 sources) Antiemetic Start: 05-29-2024 End: 06-28-2024 take 1 tablet by mouth once meclizine (Antivert) 25 MG tablet Indications: Dizziness and giddiness Take 1 tablet (25 mg) by mouth every 12 (twelve) hours if needed for dizziness 60 tablet 05/29/2024 06/28/2024 Active Start: 06-25-2023 End: 05-29-2024 take 1 tablet by mouth three times daily as needed for dizziness meclizine (Antivert) 25 MG tablet Indications: Dizziness and giddiness Take 1 tablet (25 mg) by mouth 3 (three) times a day as needed for dizziness 270 tablet 08/05/2023 11/03/2023 Active methenamine hippurate 1000 mg oral tablet (20 sources) Start: 04-14-2024 take 1 tablet by mouth in the morning methenamine hippurate (Hiprex) 1 g tablet Take 1 g by mouth in the morning and 1 g before bedtime. 04/14/2024 Active Start: 04-14-2024 End: 04-09-2025 take 1 tablet by mouth twice daily methenamine hippurate 1 g oral tablet 1 gm = 1 tab(s), Oral, BID, X 30 day(s), # 60 tab(s), Refills(s) 11, Pharmacy: [facility], 160, cm, 04/14/24 12:55:00 EST, Height/Length Dosing, 61, kg, 04/14/24 12:55:00 EST, Weight Dosing Start Date: 04/14/24 Stop Date: 04/09/25 Status: Ordered Quantity: 60.0 Unit: tab(s) Repeat number: 12 Indications: Urinary tract infection, site not specified; 24 hr metoprolol succinate 25 mg extended release oral tablet (20 sources) beta-Adrenergic Jimmy Start: 04-09-2023 take 1 capsule by mouth once daily Metoprolol Succinate 25 mg capsule,sprinkle,ER 24hr Active 25 MG PO Daily April 09, 2023 12:00am FreeTextSi capsule Orally Once a day; Note: Source Status: Taking; Provider: Windy Sheikh ( ) Start: 03-07-2023 End: 08-03-2024 take 1 mg by mouth once daily metoprolol 25 mg ER Tab mg tab(s), Oral, Daily, Refills(s) 0 Start Date: 03/07/23 Status: Ordered Repeat number: 1 Start: 01-28-2023 End: 10-22-2023 take 1 tablet by mouth every twenty-four hours in the morning metoprolol succinate XL (Toprol-XL) 25 MG 24 hr tablet Indications: Primary hypertension (CMS/HCC) take 1 tablet by mouth IN THE MORNING DO NOT CRUSH OR CHEW 90 tablet 1 07/22/2023 10/22/2023 Discontinued (Reorder) Start: 04-05-2018 End: 11-22-2021 take 1 tablet by mouth once daily in the morning Metoprolol Succinate 25 mg tablet extended release 24 hr Discontinued 25 MG PO Every morning March 26, 2019 4:33pm November 22, 2021 12:21pm take 1 capsule by mo [facility] once daily Metoprolol Succinate 25 MG 1 capsule Orally Once a day for 30 day(s) Active 24 hr mirabegron 50 mg extended release oral tablet (2 sources) beta3-Adrenergic Agonist Start: 07-16-2024 End: 07-11-2025 take 1 tablet by mouth once daily Myrbetriq 50 mg oral tablet, extended release 50 mg = 1 tab(s), Oral, Daily, X 30 day(s), # 30 tab(s), Refills(s) 11, Pharmacy: [facility] #[facility], 160, cm, 04/14/24 12:55:00 EST, Height/Length Dosing, 61, kg, 04/14/24 12:55:00 EST, Weight Dosing Start Date: 07/16/24 Stop Date: 07/11/25 Status: Ordered Quantity: 30.0 Unit: tab(s) Repeat number: 12 nitrofurantoin, macrocrystals 25 mg / nitrofurantoin, monohydrate 75 mg oral capsule (7 sources) Nitrofuran Antibacterial Start: 01-21-2024 End: 01-28-2024 take 1 capsule by mouth in the morning nitrofurantoin, macrocrystal-mono hydrate, (Macrobid) 100 MG capsule Indications: UTI symptoms Take 1 capsule (100 mg) by mouth in the morning and 1 capsule (100 mg) before bedtime. Do all this for 7 days. 14 capsule 01/21/2024 01/28/2024 Active Start: 11-19-2023 End: 11-26-2023 take 1 capsule by mouth in the morning nitrofurantoin, macrocrystal-monohydrate , (Macrobid) 100 MG capsule Indications: Urinary tract infection symptoms Take 1 capsule (100 mg) by mouth in the morning and 1 capsule (100 mg) before bedtime. Do all this for 7 days. 14 capsule 11/19/2023 11/26/2023 Active Start: 07-15-2023 End: 07-22-2023 take 1 capsule by mouth twice daily Macrobid 100 mg Cap 100 mg = 1 cap(s), Oral, BID, X 7 day(s), # 14 cap(s), Refills(s) 0, Pharmacy: [facility] #[id number], 160, cm, 07/15/23 12:40:00 EDT, Height/Length Dosing, [...] Active phenazopyridine hydrochloride 200 mg oral tablet (6 sources) Start: 05-11-2023 take 1 tablet by mouth every eight hours Phenazopyridine (Pyridium) 200 mg tablet Active 200 MG PO Every 8 hours 6 May 10, 2023 11:00pm Potassium Chloride (20 sources) Start: 03-07-2023 Potassium Chloride (Jcd-Dfls-Zky M10) 10 mEq oral tablet, extended release Refills(s) 0 Start Date: 03/07/23 Status: Ordered Repeat number: 1 Start: 03-07-2023 Potassium Chlo ride (Rhn-Xhpl-Cld M10) 10 mEq oral tablet, extended release Refills(s) 0 Start Date: 03/07/23 Status: Ordered Start: 02-13-2023 End: 02-13-2024 potassium chloride (KLOR-CON M 10) 10 MEQ CR tablet Take 1 tablet (10 mEq total) by mouth. 02/13/2023 02/13/2024 Active Start: 02-07-2023 End: 04-20-2024 take 1 capsule by mouth once daily potassium chloride ER (Micro-K) 10 MEQ ER capsule Indications: Primary hypertension (CMS/HCC) Take 1 capsule (10 mEq) by mouth Daily 90 capsule 1 01/21/2024 04/20/2024 Active Probiotic Product (PROBIOTIC/PREBIOTIC/CRANBERRY PO) (20 sources) take 60 mg by mouth once daily Probiotic Product (PROBIOTIC/PREBIOTIC/CRANBERRY PO) Take 60 mg by mouth Daily Active QUEtiapine 50 mg oral tablet (20 sources) Atypical Antipsychotic S t a r t : 0 2 - 1 3 - 2 0 2 0 E n d : 0 6 - 0 8 - 2 0 2 5 quetiapine 50 mg oral tablet Refills(s) 0 Start Date: 03/07/23 Status: Ordered Repeat number: 1 rosuvastatin calcium 20 mg o ral tablet (20 sources) HMG-CoA Reductase Inhibitor S t a r t : 0 7 - 1 8 - 2 0 2 3 E n d : 0 3 - 1 0 - 2 0 2 5 rosuvastatin 20 mg Tab Refills(s) 0 Start Date: 03/07/23 Status: Ordered Repeat number: 1 Start: 12-12-2018 End: 04-09-2023 take 1 tablet by mouth once daily at bedtime Rosuvastatin (Crestor) 10 mg Tablet Discontinued 10 MG PO Daily at bedtime December 11, 2018 11:00pm April 09, 2023 9:45am Start: 04-10-2018 End: 05-18-2018 take 1 tablet by mouth at bedtime Rosuvastatin (Crestor) 10 mg Tablet Discontinued 10 MG PO Bedtime April 18, 2018 6:54am May 16, 2018 11:00pm May 17, 2018 11:02pm Rosuvastatin Jimy cium Active sulfamethoxazole 800 mg / trimethoprim 160 mg oral tablet (15 sources) Dihydrofolate Reductase Inhibitor Antibacterial, Sulfonamide Antimicrobial Start: 04-06-2024 End: 04-20-2024 Bactrim D.S. 800 mg-160 mg Tab 1 tab(s), Oral, BID for 14 day(s), 28 tab(s), Refill(s) 0, [facility]14, 160, cm, 04/01/24 8:56:00 EST, Height/Length Dosing, 60, kg, 04/01/24 8:56:00 EST, Weight Dosing Start Date: 04/06/24 Stop Date: 04/20/24 Status: Ordered Start: 02-20-2024 End: 05-12-2024 take 1 tablet by mouth once in the morning, then take 1 tablet by mouth once at bedtime sulfamethoxazole-trimethoprim (Bactrim D S) 800-160 MG per tablet Take 1 tablet by mouth in the morning and 1 tablet before bedtime. 02/20/2024 05/12/2024 Discontinued (Therapy completed) Start: 10-30-2023 End: 11-06-2023 take 1 tablet by mouth once in the morning, then take 1 tablet by mouth once at bedtime sulfamethoxazole-trimethoprim (Bactrim D S) 800-160 MG per tablet Indications: Acute cystitis without hematuria Take 1 tablet by mouth in the morning and 1 tablet before bedtime. Do all this for 7 days. 14 tablet 10/30/2023 11/06/2023 Active Start: 05-11-2023 End: 03-01-2024 Bactrim D.S. 800 mg-160 mg T ab 1 tab(s), Oral, BID for 10 day(s), 20 tab(s), Refill(s) 0, [facility], 160, cm, 08/21/23 13:35:00 EDT, Height/Length Dosing, 60, kg, 08/21/23 13:35:00 EDT, Weight Dosing Start Date: 02/20/24 Stop Date: 03/01/24 Status: Ordered topiramate 50 mg oral tablet (20 sources) Start: 11-21-2021 End: 04-20-2024 topiramate 50 mg Tab Refills(s) 0 Start Date: 03/07/23 Status: Ordered Repeat number: 1 24 hr trospium chloride 60 mg extended release oral capsule (20 sources) Cholinergic Muscarinic Antagonist Start: 03-07-2023 End: 08-27-2024 take 1 capsule by mouth once daily in the morning trospium 60 mg oral capsule, extended release 60 mg = 1 cap(s), Oral, qAM, X 90 day(s), # 90 cap(s), Refills(s) 3, Pharmacy: [facility] #14, 160, cm, 08/21/23 13:35:00 EDT, Height/Length Dosing, 60, kg, 08/21/23 13:35:00 EDT, Weight Dosing Start Date: 09/02/23 Stop Date: 08/27/24 Status: Ordered Quantity: 90.0 Unit: cap(s) Repeat number: 4 Indication: Incontinence without sensory awareness take 3 tablets by mouth in the m orning trospium (Sanctura) 20 MG tablet Take 60 mg by mouth in the morning and 60 mg before bedtime. Active ubrogepant 100 mg oral tablet (3 sources) End: 10-22-2023 Ubrogepant (Ubrelvy) 100 MG tablet Take 100 mg by mouth 10/22/2023 Discontinued (Therapy completed) vibegron 75 MG Oral Tablet (2 sources) Start: 07-16-2024 take 1 tablet by mouth once daily vibegron 75 mg oral tablet 75 mg = 1 tab(s), Oral, Daily, # 30 tab(s), Refills(s) 11, Pharmacy: [facility] #14, 160, cm, 04/14/24 12:55:00 EST, Height/Length Dosing, 61, kg, 04/14/24 12:55:00 EST, Weight Dosing Start Date: 07/16/24 Status: Ordered Quantity: 30.0 Unit: tab(s) Repeat number: 12 Vitamin B-12 1000 MCG (7 sources) take 1 tablet by mouth once daily Vitamin B-12 1000 MCG 1 tablet Orally Once a day Active Completed/Discontinued Medications Medication Drug Class(es) Dates Sig (Normalized) Sig (Original) acetaminophen 325 mg oral tablet (20 sources) Start: 03-26-2019 End: 04-09-2023 take 325-650 mg by mouth once daily as needed for headache Acetaminophen 325 mg tablet Discontinued 325 - 650 MG PO Daily as needed for Headache March 26, 2019 4:28pm April 09, 2023 9:46am Start: 04-18-2018 End: 03-26-2019 take 1 tablet by mouth every four hours as needed for pain Acetaminophen 325 mg Tablet Discontinued 325 MG PO Q4H as needed for Pain 0 April 18, 2018 12:00am March 26, 2019 4:28pm cephalexin 500 mg oral capsule (11 sources) Cephalosporin Antibacterial Start: 11-22-2021 End: 04-09-2023 take 1 capsule by mouth three times daily Cephalexin 500 mg capsule Discontinued 500 MG PO Three times daily 15 November 21, 2021 11:00pm April 09, 2023 9:46am cetirizine hydrochloride 10 mg oral tablet (20 sources) Histamine-1 Receptor Antagonist Start: 02-18-2020 End: 11-21-2021 take 1 tablet by mouth once daily Cetirizine (All Day Allergy (Cetirizine)) 10 mg Tablet Discontinued 10 MG PO Daily February 18, 2020 12:00am November 21, 2021 10:26am ciprofloxacin 500 mg oral tablet (9 sources) Quinolone Antimicrobial Start: 07-16-2024 take 1 tablet by mouth once daily Cipro 500 mg Tab 500 mg = 1 tab(s), Oral, Daily, Take 1 tablet the day before the procedure and 1 tablet after the procedure, # 2 tab(s), Refills(s) 0, Pharmacy: [id number], 160, cm, 07/16/24 10:45:00 EDT, Height/Length Dosing, 61, kg, 07/16/24 10:45:00 EDT, Weight Dosing Start Date: 07/16/24 Status: Ordered Quantity: 2.0 Unit: tab(s) Repeat number: 1 Start: 01-23-2024 End: 01-30-2024 ciprofloxacin 500 mg Tab Ref ills(s) 0 Start Date: 01/29/24 Status: Ordered docusate sodium 100 mg oral capsule (20 sources) Start: 04-18-2018 End: 12-12-2018 take 1 capsule by mouth twice daily as needed for constipation Docusate Sodium 100 mg Capsule Discontinued 100 MG PO Twice daily as needed for Constipation 60 30 April 18, 2018 12:00am December 12, 2018 9:29am take 1 capsule by mo ut every twenty-four hours Docusate Sodium 100 MG 1 capsule as needed Orally Once a day for 30 day(s) Not-Taking hydroCHLOROthiazide 12.5 mg oral tablet (20 sources) Thiazide Diuretic Start: 12-12-2018 End: 03-23-2020 take 1 tablet by mouth once daily in the morning Hydrochlorothiazide 12.5 mg Tablet Discontinued 12.5 MG PO Every morning December 11, 2018 11:00pm March 23, 2020 12:05pm take 1 capsule by mouth once shayna ly hydroCHLOROthiazide (MICROZIDE) 12.5 mg capsule Take 1 capsule (12.5 mg total) by mouth daily. Active hydroCHLOROthiazide 12.5 mg / lisinopril 10 mg oral tablet (20 sources) Thiazide Diuretic, Angiotensin Converting Enzyme Inhibitor Start: 04-05-2018 End: 04-09-2023 take 1 tablet by mouth once daily in the morning Lisinopril-Hydrochlorothiazide 10-12.5 mg tablet Discontinued 1 TAB PO Every morning March 26, 2019 4:28pm April 09, 2023 9:45am take 10-12.5 mg by m outh once in the morning lisinopril-hydroCHLOROthiazide (PRINZIDE ,ZESTORETIC) 10-12.5 mg per tablet Take 1 tablet by mouth in the morning. Active Lisinopril-hydro CHLOROthiazide Active ibuprofen 800 mg oral tablet (13 sources) Nonsteroidal Anti-inflammatory Drug Start: 04-05-2018 End: 04-18-2018 take 1 tablet by mouth three times daily Ibuprofen 800 mg Tablet Discontinued 800 MG PO Three times daily April 05, 2018 12:00am April 18, 2018 6:51am naproxen 500 mg oral tablet (13 sources) Nonsteroidal Anti-inflammatory Drug Start: 04-05-2018 End: 04-18-2018 take 1 tablet by mouth twice daily as needed for pain Naproxen 500 mg Tablet Discontinued 500 MG PO Twice daily as needed for Pain April 05, 2018 12:00am April 18, 2018 6:51am traZODone (20 sources) Serotonin Reuptake Inhibitor Start: 03-26-2019 End: 03-26-2019 Trazodone 100 mg tablet Discontinued TABLET March 26, 2019 12:00am March 26, 2019 5:06pm Start: 03-26-2019 End: 03-26-2019 Trazodone Discontinued TABLE T March 26, 2019 12:00am March 26, 2019 [...] mouth nightly as needed for sleep. Active traZODone (DESYR EL) 100 mg tablet [...] Extended Release Discontinued 1000 MCG PO Daily 1 November 22, 2021 3:44pm April 09, 2023 9:46am Start: 03-23-2020 End: 11-22-2021 take 1 tablet [...] te Episodic/Chronic Acute and unspecified renal failure (16 sources) Injury of kidney; 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: [Acute kidney failure, unspecified] Onset: 2 11-21-2021 Episodic Acute cerebrovascular disease (20 sources) Cerebrovascular accident due to thrombus of left middle cerebral artery; 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: [Cerebral infarction due to thrombosis of left middle cerebral artery] Onset: 9 04-11-2018 Chronic Acute cerebrovascular disease (1 source) Acute cerebrovascular disease Onset: 4 Anxiety disorders (20 sources) Mixed anxiety and depressive disorder; 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: [Anxiety disorder, unspecified] Onset: 4 03-28-2023 Chronic Cardiac dysrhythmias (20 sources) Bradycardia; 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: [Bradycardia, unspecified] 11-21-2021 Episodic Chronic kidney disease (1 source) Chronic kidney disease; 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: [CHRONIC KIDNEY DISEASE STAGE 3A] Onset: 2 Congestive heart failure; nonhypertensive (20 sources) Heart failure, unspecified; 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: [Heart failure] Onset: 2 01-21-2024 Chronic Coronary atherosclerosis and other heart disease (20 sources) Atherosclerotic heart disease of [place] coronary artery without angina pectoris; 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: [Coronary atherosclerosis] Onset: 1 Chronic Deficiency and other anemia (1 source) Iron deficiency anemia secondary to blood loss (chronic); 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: [IRON DEFIC ANEMIA SEC BLD LOSS CHRN] Onset: 2 Chronic Deficiency and other anemia (13 sources) Anemia; 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: [Anemia, unspecified] 04-11-2018 Episodic Delirium, dementia, and amnestic and other cognitive disorders (2 sources) Progressive aphasia; 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] 07-01-2024 Chronic Disorders of lipid metabolism (20 sources) Hyperlipidemia; 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: [Hyperlipidemia, unspecified] Onset: 2 04-11-2018 Chronic Essential hypertension (20 sources) Hypertensive disorder; 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: [Essential (primary) hypertension] Onset: 0 Resolved: 4 04-11-2018 Chronic Fluid and electrolyte disorders (2 sources) Hypokalemia; 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: [Dehydration] Onset: 2 Episodic Genitourinary symptoms and ill-defined conditions (20 sources) Incontinence without sensory awareness; 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: [Overflow incontinence of urine] Onset: 4 Chronic Genitourinary symptoms and ill-defined conditions (20 sources) Dysuria; 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: [Dysuria] Onset: 4 Resolved: 4 Episodic Headache; including migraine (20 sources) Migraine with aura; 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: [Migraine with aura, not intractable, without status migrainosus] Onset: 4 02-20-2023 Chronic Headache; including migraine (16 sources) Headache 03-07-2023 Episodic Headache; including migraine (1 source) Headache; including migraine; 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: [HEADACHE UNSPECIFIED] Onset: 2 Heart valve disorders (1 source) Nonrheumatic mitral (valve) insufficiency; 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: [NONRHEUMATIC MITRAL INSUFFICIENCY] Onset: 3 Chronic Hypertension with complications and secondary hypertension (1 source) Hypertensive chronic kidney disease with stage 1 through stage 4 chronic kidney disease, or unspecified chronic kidney disease; 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: [HTN CKD W/STAGE 1-4 CKD/UNS CKD] Onset: 2 Chronic Immunizations and screening for infectious disease (3 sources) Contact with and (suspected) exposure to other viral communicable diseases; 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: [Contact with or exposure to other viral diseases] 05-11-2023 Episodic Intracranial injury (15 sources) History of traumatic brain injury; 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: [Personal history of traumatic brain injury] 04-11-2018 Episodic Late effects of cerebrovascular disease (20 sources) History of cerebrovascular accident with residual deficit; 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: [Unspecified sequelae of cerebral infarction] Onset: 4 02-20-2023 Chronic Miscellaneous mental health disorders (20 sources) Psychophysiologic insomnia; 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: [Psychophysiologic insomnia] Onset: 4 01-21-2024 Chronic Mood disorders (20 sources) Major depressive disorder, single episode, unspecified; 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: [Recurrent major depression in full remission] Onset: 2 02-20-2023 Chronic Occlusion or stenosis of precerebral arteries (20 sources) Bilateral stenosis of carotid arteries; 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: [Occlusion and stenosis of bilateral carotid arteries] Onset: 1 Resolved: 2 Chronic Osteoarthritis (20 sources) Arthritis of hand; Translations: [Primary osteoarthritis, right hand] Onset: 8 Resolved: 2 Chronic Other and ill-defined cerebrovascular disease (14 sources) Cerebrovascular disease; Translations: [Cerebrovascular disease, unspecified] Chronic Other and ill-defined cerebrovascular disease (1 source) Cerebrovascular disease, unspecified; Translations: [CEREBROVASCULAR DISEASE UNSPECIFIED] Onset: 2 Chronic Other circulatory disease (20 sources) History of cardiovascular surgery; Translations: [Presence of other cardiac implants and grafts] Onset: 9 04-11-2018 Chronic Other circulatory disease (4 sources) Stented artery; Translations: [Presence of other vascular implants and grafts] 08-08-2023 Chronic Other circulatory disease (2 sources) Presence of other vascular implants and grafts; Translations: [Other postprocedural status] 08-08-2023 Chronic Other circulatory disease (12 sources) History of cerebrovascular accident due to ischemia; Translations: [Personal history of transient ischemic attack (TIA), and cerebral 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] 12-09-2023 Episodic Other connective tissue disease (1 source) Presence of right artificial knee joint; Translations: [PRESENCE RT ARTIFICIAL KNEE JOINT] Onset: 2 Chronic Other connective tissue disease (1 source) Presence of unspecified artificial knee joint; Translations: [PRESENCE UNS ARTIFICIAL KNEE JOINT] Onset: 2 Chronic Other connective tissue disease (4 sources) Other specified soft tissue disorders; Translations: [OTHER SPEC SOFT TISSUE DISORDERS] Onset: 2 Episodic Other ear and sense organ disorders (16 sources) Acute otitis externa; Translations: [Diffuse otitis externa, bilateral] Onset: 5 2024 Episodic Other gastrointestinal disorders (13 sources) Dysphagia; Translations: [Dysphagia, unspecified] 04-11-2018 Episodic Other gastrointestinal disorders (1 source) Dysphagia, oropharyngeal phase; Translations: [Dysphagia, oropharyngeal phase] Onset: 4 Episodic Other hereditary and degenerative nervous system conditions (13 sources) Dystonia; Translations: [Dystonia, unspecified] 04-11-2018 Chronic Other lower respiratory disease (2 sources) Shortness of breath; Translations: [Shortness of breath] Onset: 5 Episodic Other nervous system disorders (1 source) Difficulty in walking, not elsewhere classified; Translations: [DIFFICULTY IN WALKING NEC] Onset: 2 Chronic Other nervous system disorders (1 source) Aphasia; Translations: [APHASIA] Onset: 2 Chronic Other nervous system disorders (8 sources) Expressive dysphasia; Translations: [Aphasia] 06-07-2024 Chronic Other nervous system disorders (20 sources) White matter disease; Translations: [White matter disease, unspecified] Onset: 4 Episodic Other nervous system disorders (1 source) Unspecified abnormalities of gait and mobility; Translations: [Unspecified abnormalities of gait and mobility] Onset: 4 Episodic Other nervous system disorders (14 sources) Ataxia; Translations: [Ataxia, unspecified] 12-09-2023 Episodic Other nervous system disorders (6 sources) Abnormal gait; Translations: [Unsteadiness on feet] 06-07-2024 Episodic Other skin disorders (1 source) Localized swelling, mass and lump, left lower limb; Translations: [LOC SWELL MASS LUMP LT LOWER LIMB] Onset: 2 Episodic Ovarian cyst (7 sources) Unspecified ovarian cyst, unspecified side; Translations: [Unspecified ovarian cyst, right side] Onset: 2 Episodic Peripheral and visceral atherosclerosis (20 sources) Peripheral vascular disease, unspecified; Translations: [Peripheral vascular disease] Onset: 3 01-21-2024 Chronic Residual codes; unclassified (4 sources) Insomnia; Translations: [Other insomnia] 06-15-2024 Chronic Residual codes; unclassified (2 sources) Obstructive sleep apnea syndrome; Translations: [Obstructive sleep apnea (adult) (pediatric)] 07-01-2024 Chronic Residual codes; unclassified (13 sources) Confusional state; Translations: [Disorientation, unspecified] 10-26-2020 Episodic Residual codes; unclassified (12 sources) Altered mental status; Translations: [Altered mental status, unspecified] 11-21-2021 Episodic Residual codes; unclassified (1 source) Edema of lower extremity; Translations: [Localized edema] 02-20-2024 Episodic Residual codes; unclassified (1 source) Localized edema; Translations: [Edema] 02-20-2024 Episodic Residual codes; unclassified (10 sources) Memory impairment; Translations: [Other amnesia] 06-07-2024 Episodic Residual codes; unclassified (2 sources) Staring; Translations: [Transient alteration of awareness] 06-15-2024 Episodic Unclassified (3 sources) COUGH, UNSPECIFIED; Translations: [COUGH, UNSPECIFIED] Onset: 2 Unclassified (1 source) CHRN KIDNEY DISEASE STG 3 UNSP; Translations: [CHRN KIDNEY DISEASE STG 3 UNSP] Onset: 2 Unclassified (1 source) Occlusion and stenosis of bilateral carotid arteries; Translations: [Occlusion and stenosis of bilateral carotid arteries] Onset: 4 Urinary tract infections (20 sources) Urinary tract infection, site not specified; Translations: [Urinary tract infectious disease] Onset: 2 Resolved: 4 Episodic Varicose veins of lower extremity (18 sources) Varicose veins of lower extremity; Translations: [Varicose veins of bilateral lower extremities with other complications] Onset: 3 Episodic Viral infection (2 sources) COVID-19; Translations: [COVID-19] Onset: 2 Resolved: 2 Past or Other Problems Problem Classification Problem Date Documented Da te Episodic/Chronic Administrative/social admission (20 sources) Other reduced mobility; Translations: [Impaired mobility and activities of daily living] Onset: 4 04-11-2018 Episodic Bacterial infection; unspecified site (4 sources) Infection due to ESBL bacteria Onset: 5 05-08-2024 Episodic Comment on above: ESBL E coli urine Calculus of urinary tract (1 source) Personal history of urinary calculi; Translations: [PERSONAL HISTORY OF URINARY CALCULI] Onset: 2 Episodic Conditions associated with dizziness or vertigo (20 sources) Dizziness and giddiness; Translations: [Dizziness and giddiness] Onset: 4 05-15-2023 Episodic Deficiency and other anemia (4 sources) [...] Translations: [WEAKNESS] Onset: 2 Episodic Mood disorders (20 sources) Mood disorders Onset: 9 Resolved: 4 2023 Nausea and vomiting (1 source) Nausea with vomiting, unspecified Onset: 2 Resolved: 2 Episodic Nutritional deficiencies (20 sources) Deficiency of other specified B group vitamins; Translations: [Iron deficiency] Onset: 2 Episodic Other aftercare (1 source) electrical systems designer (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) use of aspirin; Translations: [SKILLED NURSING CURRENT USE OF ASPIRIN] Onset: 2 Episodic Other aftercare (1 source) Other prison (current) drug therapy; Translations: [OTH FOOD SCIENCE TECHNICIAN CURRENT DRUG THERAPY] Onset: 2 Episodic Other aftercare (1 source) Encounter for follow-up examination after completed treatment for conditions other than malignant neoplasm; Translations: [ENC F/U EX AFTR CMPL TX NOT MAL SU] Onset: 2 Episodic Other aftercare (1 source) electrical systems designer (current) use of antithrombotics/antipl atelets; Translations: [FOOD SCIENCE TECHNICIAN 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/ANTIPLATL ETS] Onset: 2 Episodic Other aftercare (20 sources) Post-discharge follow-up; Translations: [Encounter for follow-up examination after completed treatment for conditions other than malignant neoplasm] Onset: 4 Resolved: 4 03-06-2023 Episodic Other circulatory disease (1 source) Personal history of transient ischemic attack (TIA), and cerebral 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; Translations: [PERS HX TIA AND CI NO RESID DEFICIT] Onset: 2 Episodic Other connective tissue disease (3 sources) Pain in right hand Onset: 2 Resolved: 2 Episodic Other connective tissue disease (20 sources) Spasm; Translations: [Other muscle spasm] Onset: 4 01-21-2024 Episodic Other gastrointestinal disorders (1 source) Bariatric surgery status; Translations: [BARIATRIC SURGERY STATUS] Onset: 2 Episodic Other gastrointestinal disorders (20 sources) Oropharyngeal dysphagia; Translations: [Dysphagia, oropharyngeal phase] Onset: 4 08-21-2023 Episodic Other gastrointestinal disorders (2 sources) Dysphagia, oral phase; Translations: [Dysphagia, oral phase] Onset: 4 Episodic Other injuries and conditions due to external causes (1 source) History of falling; Translations: [HISTORY OF FALLING] Onset: 2 Episodic Other lower respiratory disease (1 source) Other nonspecific abnormal finding of lung field; Translations: [OTH NONSPECIFIC ABN FIND LNG FIELD] Onset: 2 Episodic Other nervous system disorders (20 sources) Dysarthria; Translations: [Dysarthria and anarthria] Onset: 4 02-20-2023 Episodic Other nervous system disorders (1 source) Functional gait abnormality; Translations: [Unspecified abnormalities of gait and mobility] 07-04-2023 Episodic Other non-traumatic joint disorders (3 sources) Pain in left wrist; Translations: [PAIN IN LEFT WRIST] Onset: 2 Episodic Other screening for suspected conditions (not mental disorders or infectious disease) (20 sources) Patient encounter status; Translations: [Encounter for screening for malignant neoplasm of colon] Onset: 2 12-16-2018 Episodic Other upper respiratory disease (2 sources) Pain in throat; Translations: [Pain in throat] Onset: 4 Episodic Other upper respiratory infections (20 sources) Acute upper respiratory infection; Translations: [Acute upper respiratory infection, unspecified] Onset: 4 Resolved: 4 02-20-2023 Episodic Residual codes; unclassified (5 sources) Other [...] unspecified; Translations: [Pain, unspecified] Onset: 4 Episodic Screening and history of mental health and substance abuse codes (1 source) Personal history of nicotine dependence; Translations: [PERSONAL HISTORY OF NICOTINE DEPEND] Onset: 2 Episodic Spondylosis; intervertebral disc disorders; other back problems (1 source) Cervicalgia; Translations: [CERVICALGIA] Onset: 2 Episodic Unclassified (1 source) COUGH, UNSPECIFIED; Translations: [COUGH, UNSPECIFIED] Onset: 2 Unclassified (20 sources) Onset: 12-01-27-2024 Results Test Name Value Interpretation Reference Range Facility Office Visiton 07-22-2024 Follow-up visit [id number] BaltaOzzie bill 1950 F Date Provider Department Center 07/22/2024 JEET RUBEN VANIA [facility] Family History Problem Relation Age of Onset Hypertension Mother Hypertension Father Heart attack Brother Family Status - Relation Status Age at Mother Father Brother Level of Service:07224 IN OFFICE/OUTPATIENT ESTABLISHED MOD MDM 30 MIN Normal [facility] Ambulatory Visit Summaryon 0 07-16-2024 Ambulatory Visit Summary Ambulatory Visit Summary DENISEOZZIE BERGMAN :1950 Visit Date:07/16/2024 Ambulatory Visit Instructions Your Diagnosis Recurrent UTI Incontinence without sensory awareness Your Care Team Attending Physician - BERNICE CLEMENTE PA-C Primary Care Physician - CINDY COLLADO CNP This Is Your Medications List mirabegron (Myrbetriq 50 mg oral tablet, extended release) vibegron (vibegron 75 mg oral tablet) Contact prescribing physician if questions or concerns Misc Prescription (BACLOFEN 20MG TAB) amlodipine (amLODIPine 2.5 mg Tab) ascorbic acid (Vitamin C) aspirin (aspirin 81 mg Chew Tab) clonazepam (ClonazePAM 0.5 mg Tab) estradiol topical (Estrace 0.1 mg/g Cream) ferrous sulfate (FeroSul 325 mg oral tablet) furosemide (Lasix 20 mg Tab) methenamine (methenamine hippurate 1 g oral tablet) metoprolol (metoprolol 25 mg ER Tab) potassium chloride (Potassium Chloride (Oxv-Fkpd-Etp M10) 10 mEq oral tablet, extended release) quetiapine (quetiapine 50 mg oral tablet) rosuvastatin (rosuvastatin 20 mg Tab) topiramate (topiramate 50 mg Tab) [Image Removed: STOP]Stop taking these medications trospium (trospium 60 mg oral capsule, extended release) Procedures Performed Colonoscopy (05/12/2021), Breast surgery, Gastric bypass, Hysterectomy, Knee replacement. Discharge Vitals Temperature (Oral) 37 ???C Heart Rate (Peripheral) 58 Respiratory Rate 16 Blood Pressure 118/68 Height 160 cm Height 63 in Weight 61 kg Weight 134.482 lb BMI 23.83 What to do next Scheduled Follow-Up Appointments Saturday 3:00 PM EDT With: BERNICE CLEMENTE PA-C Where: [facility] [place] [address] [place] [address]- Medications What How Much When Why Instructions New mirabegron (Myrbetriq 50 mg oral tablet, extended release) 1 Tablets By Mouth Every day Duration: 30 Days Refills: 11 Pickup at [facility] New vibegron (vibegron 75 mg oral tablet) 1 Tablets By Mouth Every day Refills: 11 Pickup at [facility] Unchanged amlodipine (amLODIPine 2.5 mg Tab) Contact prescribing physician if questions or concerns Unchanged ascorbic acid (Vitamin C) See instructions Contact prescribing physician if questions or concerns Unchanged aspirin (aspirin 81 mg Chew Tab) Chewed Every day Contact prescribing physician if questions or concerns Unchanged clonazepam (ClonazePAM 0.5 mg Tab) Contact prescribing physician if questions or concerns Unchanged estradiol topical (Estrace 0.1 mg/ g Cream) See instructions apply a pea-sized amount vaginally and around the urethra nightly x 3 weeks, then 3x per week thereafter Contact prescribing physician if questions or concerns Unchanged ferrous sulfate (FeroSul 325 mg oral tablet) By Mouth 3 times a day Contact prescribing physician if questions or concerns Unchanged furosemide (Lasix 20 mg Tab) 0.5 Tablets By Mouth Every day Contact prescribing physician if questions or concerns Unchanged methenamine (methenamine hippurate 1 g oral tablet) 1 Tablets By Mouth 2 times a day Recurrent UTI Duration: 30 Days Contact prescribing physician if questions or concerns Unchanged metoprolol (metoprolol 25 mg ER Tab) By Mouth Every day Contact prescribing physician if questions or concerns Unchanged Misc Prescription (BACLOFEN 20MG TAB) 0 Contact prescribing physician if questions or concerns Unchanged potassium chloride (Potassium Chloride (Nia-Mosb-Vxb M10) 10 mEq oral tablet, extended release) Contact prescribing physician if questions or concerns Unchanged quetiapine (quetiapine 50 mg oral tablet) Contact prescribing physician if questions or concerns Unchanged rosuvastatin (rosuvastatin 20 mg Tab) Contact prescribing physician if questions or concerns Unchanged topiramate (topiramate 50 mg Tab) Contact prescribing physician if questions or concerns Pharmacy Information [facility]: [address] [place], [place] [id number] [phone] What How Much When Why Comments Stop Taking trospium (trospium 60 mg oral capsule, extended release) 1 Capsules By Mouth Once a day (in the morning) Urinary incontinence without sensory awareness Duration: 90 Days Allergies penicillin Problems Ongoing - Any problem that you are currently receiving treatment for. Dysuria ESBL (extended spectrum beta-lactamase) producing bacteria infection Headache Hypertension Incontinence without sensory awareness Recurrent UTI Stroke UTI (urinary tract infection) White matter disease Patient Survey You may receive a survey via text or e-mail asking about your office visit. Please share your experience with us by completing your survey. We appreciate your feedback and thank you for choosing us for your care. [facility] Urology Office/Clinic Noteon 07-16-2024 Urology Office/Clinic Note Urology Office/Clinic Note Chief Complaint recheck UTI HPI Staff 73yr old female pt here for f/u to her UTI per pt Previous Dx: recurrent uti, incontinence without sensory awareness *Trospium 60mg qAM, estrogen cream q2 weeks, D-mannose, cranberry PVR: 01/28/24 - 19mL //25 - 24mL PVR today was 50 Pt states her biggest concern is the incontinence and she states she goes through 15-17 depends. pt states when she sits upin the morning she has a burning in vaginal area, she has to wait for that pain to pass to stand up. By the time she is able to stand, she has already wet herself and has to change her clothes. pt does not feel she she is emptying bladder. Vaginal area is irritated Review of Systems PHQ Score Initial Depression Screen Score: 0 SCORE No fever, chills, malaise, myalgia. No abdominal pain, flank pain, gross hematuria. Physical Exam Vitals & Measurements T: 37 ???C(Oral) HR: 58(Peripheral) RR: 16 BP: 118/68 HT: 160 cm HT: 63 in WT: 134.482 lb WT: 61 kg BMI: 23.83 General: nontoxic, NAD Mouth: moist mucosa Lungs: normal respiratory effort Cardio: regular rate, good distal perfusion Abdomen: nondistended Neurologic: Grossly normal Skin: No rashes or suspicious lesions Assessment/Plan 1. Recurrent UTI (N39.0: Urinary tract infection, site not specified) UCX: 04/2023 - Klebsiella 07/15/23 - E Coli - tx w/ Macrobid 10/26/23 - >100K Klebsiella, >100K ESBL E. Coli - tx w/ Bactrim 11/16/23- >100K E. Coli, probable ESBL 01/31/24 - E. Coli, Strep agalactiae - tx w/ macrobid, switched to cipro based on sensitivity 02/20/24 - Klebsiella - tx w/ Bactrim x 10d 04/03/24 - >100K E. Coli, 75K Klebsiella, tx w/ Bactrim x 14 days (currently taking) KUB 04/01/24 - negative for acute findings For UTI prevention -OTC supplements -Estrace cream 3x/weekly -Methenamine and Vitamin C 05/05/24 - call w sx. 10k E Coli. Tx'd w Doxy x 5d 06/15/24 - UA drop for sx. Completely neg. No abx. 06/30/24 - sx. 10k E Coli. Tx'd w Bactrim x 5d. Pt reports burning does not change while on abx. Persistent whether she is on abx or not. IO UA today completely negative. Burning continues. IC? Chronic cystitis? Stricture? Will schedule cystoscopy for further eval. Will schedule Cysto with possible UD. The procedure risks, benefits, details, and treatment alternatives have been discussed with the patient. These include bleeding, infection, recurrent scar in over 50%, need for repeat dilation or other procedures, no symptom relief with dilation, among others. Full informed consent has been obtained. Will order Local anesthesia. Ordered: 27065 Measure Post Void residual urine and/or bladder capacity by US- non-imaging Body Mass Index (BMI) documented 3008F Current tobacco non-user 1036F Depression Screening Negative 3352F E&M of Est. Patient Moderate 30-39 Min 05297 Influenza immunization status assessed 1030F Medication list documented in medical record 1159F Most recent diastolic blood pressure <80 mm Hg 3078F Patient screen for fall risk: no falls in last year or 1 fall with no injury in last year 1101F Review of all meds by a prescribing practitioner or clinical pharmacist documented in EHR 1160F Systolic BP <130 mm Hg (Most Recent) 3074F Urnls Dip Stick Auto w/o Microscopy POC 44287 2. 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 Very bothersome. No improvement w Trospium. Will add Beta-3, either Myrbetriq or Gemtesa, whichever is covered/more affordable. Risks/benefits/side effects discussed. PVR 50ml Ordered: 07328 Measure Post Void residual urine and/or bladder capacity by US- non-imaging Body Mass Index (BMI) documented 3008F Current tobacco non-user 1036F Depression Screening Negative 3352F E&M of Est. Patient Moderate 30-39 Min 64361 Influenza immunization status assessed 1030F Medication list documented in medical record 1159F Most recent diastolic blood pressure <80 mm Hg 3078F Patient screen for fall risk: no falls in last year or 1 fall with no injury in last year 1101F Review of all meds by a prescribing practitioner or clinical pharmacist documented in EHR 1160F Systolic BP <130 mm Hg (Most Recent) 3074F Urnls Dip Stick Auto w/o Microscopy POC 10406 Orders: ciprofloxacin, 500 mg = 1 tab(s), Oral, Daily, Take 1 tablet the day before the procedure and 1 tablet after the procedure, # 2 tab(s), Refills(s) 0, Pharmacy: [facility], 160, cm, 07/16/24 10:45:00 EDT, Height/Length Dosing, 61, kg, 07/16/24 10:45:0... mirabegron, 50 mg = 1 tab(s), Oral, Daily, X 30 day(s), # 30 tab(s), Refills(s) 11, Pharmacy: [facility], 160, cm, 04/14/24 12:55:00 EST, Height/Length Dosing, 61, kg, 04/14/24 12:55:00 EST, Weight Dosing vibegron, 75 mg = 1 tab(s), Oral, Daily, # 30 tab(s), Refills(s) 11, Pharmacy: [facility], 160, cm, 04/14/24 12:55:00 EST, Height/Length Dosing, (more content not included)... Normal [facility] Comment on above: Result Comment: Elec tronically Signed By: BERNICE CLEMENTE PA-C\Date and Time Signed: 07/16/24 18:43 EDT C Urineon 07-03-2024 Bacteria identified Cx Nom (U) Microbiology PROCEDURE: Urine Culture [R1] SOURCE: U Random BODY SITE: COLLECTED DATE/TIME: 06/30/2024 13:49 EDT RECEIVED DATE/TIME: 07/01/2024 16:57 EDT START DATE/TIME: 07/01/2024 16:57 EDT FREE TEXT SOURCE: VASQUEZ VIDES, Alexandr OVALLE MD, Alexandr Isaac FINAL REPORTS Final Report [] Verified Date/Time: 07/03/2024 10:50 EDT 10,000 cfu/ml Escherichia coli 1,000 cfu/ml Mixed skin contaminants SUSCEPTIBILITY RESULTS LEGEND: S=Susceptible, N/R=Not Reported, Blank=Data not available, or drug not advisable or tested, I=Intermediate, ESBL=Extended spectrum beta-lactamase, R=Resistant, TFG=Thymidine-depende nt strain, ANA=Beta-lactamase positive, QUINTIN=mcg/m;(mg/L), S*=Predicted susceptible interp, R*=Predicted resistant interp EC Antibiotic QUINTIN Dilutn QUINTIN Interp Ampicillin <=8 S Ampicillin/ <=8/4 S Sulbactam Aztreonam <=4 S Cefazolin <=2 S Cefepime <=2 S Ceftazidime <=1 S Ceftazidime/ <=8 S Avibactam Ceftriaxone <=1 S Cefuroxime <=4 S Ciprofloxacin <=0.25 S Ertapenem <=0.5 S Gentamicin <=2 S Levofloxacin <=0.5 S Meropenem <=1 S Nitrofurantoin <=32 S Piperacillin/ <=8 S Tazobactam Tetracycline <=4 S Tobramycin <=2 S Trimethoprim/ <=2/38 S Sulfa Performing Locations R1: This test was performed at: [facility], [address] [place] [address], [address] [place] [address], [facility] Comment on above: Performed By: #### [id number] #### [facility] [address] [place] [address] MR CERVICAL SPINE WO/W CONon 06-24-2024 [place] [address] Magnetic Resonance Report Signed Patient: OZZIE GIFFORD MR#: [id number] : 1950 Acct:[id number] Age/Sex: 74 / F ADM Date: 06/24/24 Loc: LAB Attending Dr: Jameson Ceballos NP Ordering Physician: Jameson Ceballos NP Date of Service: 06/24/24 Procedure(s): MR cervical spine wo/w con Accession Number(s): [id number] cc: Cindy Collado ENTRY LEVEL FINANCE; Jameson Ceballos NP [address] [address] Patient Name: OZZIE GIFFORD MRN: [id number] date: 1950 Sex: F Assigned Patient Location: LAB Current Patient Location: LAB Accession/Order Number: [id number] Exam Date: 06/24/2024 11:38 Report Date: 06/24/2024 11:50 At the request of: JAMESON CEBALLOS NP Procedure: MR cervical spine wo/w con [...] No abnormal postcontrast enhancement. Impression dictated by: Bambi Sung M.D. 06/24/2024 11:50 AM Dictation [facility] Electronically authenticated by: [id number] Y Date: 06/24/2024 11:50 Dictated By: Bambi Sung M.D. Signed By: 06/24/24 1152 DD/ 1150 TD/TT: Hall Monitor: [facility] Radiology, Radiologist, - 06/24/2024 [place] [address] Magnetic Resonance Report Signed Patient: OZZIE GIFFORD MR#: [id number] : 1950 Acct:[id number] Age/Sex: 74 / F ADM Date: 06/24/24 Loc: LAB Attending Dr: Jameson Ceballos NP Ordering Physician: Jameson Ceballos NP Date of Service: 06/24/24 Procedure(s): MR cervical spine wo/w con Accession Number(s): [id number] cc: Cindy Collado NP; Jameson Ceballos NP [place] [address] Patient Name: OZZIE GIFFORD MRN: [id number] date: 1950 Sex: F Assigned Patient Location: LAB Current Patient Location: LAB Accession/Order Number: [id number] Exam Date: 06/24/2024 11:38 Report Date: 06/24/2024 11:50 At the request of: JAMESON CEBALLOS NP Procedure: MR cervical spine wo/w con [...] No abnormal postcontrast enhancement. Impression dictated by: Bambi Sung M.D. 06/24/2024 11:50 AM Dictation Location: [place] [address] Electronically authenticated by: [id number] Y Date: 06/24/2024 11:50 Dictated By: Bambi Sung M.D. Signed By: 06/24/24 1152 DD/ 1150 TD/TT: Hall Monitor: [facility] Radiology Study observation (narrative) [facility] MR CERVICAL SPINE WO/W Navjot dered By: Radiologist Radiology on 06-24-2024 [facility] Work Phone: MRI HEAD/BRAIN WO/W CONTRon 06-24-2024 [place] [address] Magnetic Resonance Report Signed Patient: OZZIE GIFFORD MR#: [id number] : 1950 Acct:[id number] Age/Sex: 74 / F ADM Date: 06/24/24 Loc: LAB Attending Dr: Jameson Ceballos NP Ordering Physician: Jameson Ceballos NP Date of Service: 06/24/24 Procedure(s): MR head/brain wo/w con Accession Number(s): [id number] cc: Cindy Collado ENTRY LEVEL FINANCE; Jameson Ceballos NP [place] [address] Patient Name: OZZIE GIFFORD MRN: [id number] date: 1950 Sex: F Assigned Patient Location: LAB Current Patient Location: LAB Accession/Order Number: [id number] Exam Date: 06/24/2024 13:40 Report Date: 06/24/2024 13:48 At the request of: JAMESON CEBALLOS NP Procedure: MR head/brain wo/w con MR [...] are noted as above. Impression dictated by: Bambi Sung M.D. 06/24/2024 1:48 PM Dictation Location: [place] [address] Electronically authenticated by: [id number] Y Date: 06/24/2024 13:48 Dictated By: Bambi Sung M.D. Signed By: 06/24/24 1350 DD/ 1348 TD/TT: Hall Monitor: [facility] Radiology, Radiologist, - 06/24/2024 [place] [address] Magnetic Resonance Report Signed Patient: OZZIE GIFFORD MR#: [id number] : 1950 Acct:[id number] Age/Sex: 74 / F ADM Date: 06/24/24 Loc: LAB Attending Dr: Jameson Ceballos NP Ordering Physician: Jameson Ceballos NP Date of Service: 06/24/24 Procedure(s): MR head/brain wo/w con Accession Number(s): [id number] cc: Cindy Collado NP; Jameson Ceballos NP [place] [address] Patient Name: OZZIE GIFFORD MRN: [facility]:[id number] date: 1950 Sex: F Assigned Patient Location: LAB Current Patient Location: LAB Accession/Order Number: [id number] Exam Date: 06/24/2024 13:40 Report Date: 06/24/2024 13:48 At the request of: JAMSEON CEBALLOS NP Procedure: MR head/brain wo/w con MR [...] are noted as above. Impression dictated by: Bambi Sung M.D. 06/24/2024 1:48 PM Dictation Location: [place] [address] Electronically authenticated by: [id number] Y Date: 06/24/2024 13:48 Dictated By: Bambi Sung M.D. Signed By: 06/24/24 1350 DD/ 1348 TD/TT: Hall Monitor: [facility] Radiology Study observation (narrative) [facility] MRI HEAD/BRAIN WO/W CONTROrd ered By: Radiologist Radiology on 06-24-2024 [facility] Work Phone: [facility] CREATININEon 06-24-2024 Creatinine [Mass/Vol] 0.68 mg/dL 0.55 - 1.02 mg/dL [facility] GFR/1.73 sq M.predicted CKD-EPI (S/P/Bld) [Vol rate/Area] >60 >=60 mL/min/1.73 m 2 [facility] EGFR-NON AF [place] >60 >=60 mL/min/1.73 m 2 [facility] ALL CBC WITH AUTO DIFFon BASOPHILS ABSOLUTE AUTO 0.[address] [facility] Basophils/100 WBC (Bld) 0.9 % 0.2 - 2.0 % [facility] Eosinophils/100 WBC (Bld) 4.3 % 0.9 - 7.0 % [facility] Erythrocyte distribution width (RBC) [Ratio] 13.3 % 11.0 - 15.0 % [facility] Hematocrit (Bld) [Volume fraction] 41.9 % 36.0 - 48.0 % [facility] Hemoglobin (Bld) [Mass/Vol] 14.2 g/dL 12.0 - 16.0 g/dL [facility] IMMATURE GRANULOCYTES ABS AUTO 0.02 [facility] Immature granulocytes/100 WBC (Bld) 0.3 % 0.0 - 0.5 % [facility] Interpretation and review of laboratory results Abnormal [facility] LYMPHOCYTES ABSOLUTE AUTO 1.9 [facility] Lymphocytes/100 WBC (Bld) 25.5 % 20.5 - 60.0 % [facility] MCH (RBC) [Entitic mass] 30.7 pg 26.7 - 34.0 pg [facility] MCHC (RBC) [Mass/Vol] 33.9 g/dL 29.9 - 35.2 g/dL [facility] MCV (RBC) [Entitic vol] 90.5 fL 81.0 - 99.0 fL [facility] MONOCYTES ABSOLUTE AUTO 0.6 N [facility] Monocytes/100 WBC (Bld) 8.2 % 1.7 - 12.0 % [facility] NEUTROPHILS ABSOLUTE AUTO 4.5 [facility] Neutrophils/100 WBC (Bld) 60.8 % 43.0 - 75.0 % [facility] Platelet mean volume (Bld) [Entitic vol] 10.7 fL 9.5 - 13.5 fL [facility] TBH EO # 0.3 [facility] TBH PLT 145 Low [facility] TBH RBC 4.63 [facility] TB WBC 7.5 [facility] C Urineon 05-07-2024 Bacteria identified Cx Nom (U) Microbiology PROCEDURE: Urine Culture [R1] SOURCE: U Random BODY SITE: COLLECTED DATE/TIME: 05/05/2024 12:35 EDT RECEIVED DATE/TIME: 05/05/2024 18:57 EDT START DATE/TIME: 05/05/2024 18:57 EDT FREE TEXT SOURCE: CORRIE EDEN, BERNICE CLEMENTE PA-C, BERNICE Carias FINAL REPORTS Final Report [] Verified Date/Time: 05/07/2024 08:57 EDT 10,000 cfu/ml Escherichia coli ESBL SUSCEPTIBILITY RESULTS LEGEND: S=Susceptible, N/R=Not Reported, Blank=Data not available, or drug not advisable or tested, I=Intermediate, ESBL=Extended spectrum beta-lactamase, R=Resistant, TFG=Thymidine-depende nt strain, ANA=Beta-lactamase positive, QUINTIN=mcg/m;(mg/L), S*=Predicted susceptible interp, R*=Predicted resistant interp ECESBL Antibiotic QUITNIN Dilutn QUINTIN Interp Ampicillin >16 R* Ampicillin/ <=8/4 S Sulbactam Aztreonam >16 ESBL Cefazolin >16 R* Cefepime >16 R* Ceftazidime 16 ESBL Ceftazidime/ <=8 S Avibactam Ceftriaxone >2 ESBL Cefuroxime >16 R* Ciprofloxacin 0.5 I Ertapenem <=0.5 S Gentamicin <=2 S Levofloxacin <=0.5 S Meropenem <=1 S Nitrofurantoin <=32 S Piperacillin/ <=8 S Tazobactam Tetracycline <=4 S Tobramycin <=2 S Trimethoprim/ <=2/38 S Sulfa Performing Locations R1: This test was performed at: [facility], [address] [place] [address], [facility]- , , [facility] Comment on above: Performed By: #### [id number] #### [facility] [address] [place] [address] Laboratory - Microbiology an d Antimicrobial susceptibilityOrdered By: Laura Handley on 05-05-2024 Bacteria identified Cx Nom (U) 10,000 cfu/ml Gram Negative Jose Neuropathologist species [facility] Reminderson 04-15-2024 Reminders Reminders From: Christina Saul To: EU - Administrative; Sent: 08/09/2023 10:15:11 EDT Show up: 04/13/2024 10:14:00 EST Subject: 1 yr f/u Due Date/Time: 07/14/2024 10:14:00 EDT Reminder/Recall patient seen on 07/15/2023. Patient needs a 1 yr f/u w/ PVR with AO in [place]. Appointment due by 07/14/2024 Pt has been scheduled for 08/05/24. Normal [facility] Urology Office/Clinic Noteon 04-14-2024 Urology Office/Clinic Note Urology Office/Clinic Note Chief Complaint urinary incontinence HPI Staff 73yr old female pt here for 2wk f/u for incontinence. Feels incontinence has gotten worse since last visit. Pt says she tried stopping her Lasix to see if that helped but it did not make a difference. Pt is going through 10 Depends per day. Previous Dx: recurrent uti, incontinence without sensory awareness *Trospium 60mg qAM, started estrogen cream at last OV PVR: 01/29/24 - 19mL 04/01/24 - 24mL History of Present Illness I have reviewed and verified the staff HPI to be accurate for this encounter. Review of Systems PHQ Score Initial Depression Screen Score: 0 SCORE no fever, chills, malaise, myalgia. no abdominal pain, nausea, vomiting. Physical Exam Vitals & Measurements HR: 61(Peripheral) RR: 18 BP: 119/69 HT: 63 in HT: 160 cm WT: 61 kg WT: 134.482 lb BMI: 23.83 General: Well developed, well nourished, in no acute distress. 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 Recurrent UTI (N39.0: Urinary tract infection, site not specified) UCX: 04/2023 - Klebsiella 07/15/23 - E Coli - tx w/ Macrobid 10/26/23 - >100K Klebsiella, >100K ESBL E. Coli - tx w/ Bactrim 11/16/23- >100K E. Coli, probable ESBL 01/31/24 - E. Coli, Strep agalactiae - tx w/ macrobid, switched to cipro based on sensitivity 02/20/24 - Klebsiella - tx w/ Bactrim x 10d 04/03/24 - >100K E. Coli, 75K Klebsiella, tx w/ Bactrim x 14 days (currently taking) KUB 04/01/24 - negative for acute findings UA today with trace leuks only Patient currently taking Bactrim for UTI, prescribed by WYATT at last OV. Antibiotic should end around 04/20. Patient states UTI sxs are improving but she has noticed increased episodes of incontinence. Discussed UA results, shows trace leuks only. Advised pt that her urinary sxs could still be due to infection and recommend she complete current antibiotics prior to changing Trospium. She is agreeable. She continues to take OTC supplements, Estrace cream 3x/weekly and Vitamin C 500 mg daily. Urine pH is 5.5 today, recommend starting Methenamine to help with UTI prevention. Informed patient she should not take Methenamine with antibiotics. Start after she completes course of Bactrim. She understands and is agreeable. All questions answered. -Continue Bactrim until complete, end around 04/20 -Cont OTC supplements (cranberry, probiotics, D-mannose) -Cont Estrace cream -Start Methenamine 1 gm BID. Rx sent to [facility]. Continue Vitamin C 500 mg daily to maintain urine pH < 5.5 -F/U in 3 months, call sooner if needed Ordered: methenamine, 1 gm = 1 tab(s), Oral, BID, X 30 day(s), # 60 tab(s), Refills(s) 11, Pharmacy: [facility], 160, cm, 04/14/24 12:55:00 EST, Height/Length Dosing, 61, kg, 04/14/24 12:55:00 EST, Weight Dosing Body Mass Index (BMI) documented 3008F Current tobacco non-user 1036F Depression Screening Negative 3352F E&M of Est. Patient Moderate 30-39 Min 75580 Influenza immunization status assessed 1030F Medication list documented in medical record 1159F Most recent diastolic blood pressure <80 mm Hg 3078F Patient screen for fall risk: no falls in last year or 1 fall with no injury in last year 1101F Review of all meds by a prescribing practitioner or clinical pharmacist documented in EHR 1160F Systolic BP <130 mm Hg (Most Recent) 3074F 2. Incontinence without sensory awareness (N39.42: Incontinence without sensory awareness) PVR 01/29/24 - 19mL 02/19/25 - 24mL No PVR today BBSQ not complete today. Was 20 at last OV. Currently taking Trospium 60 mg qAM. Reports no bothersome SEs at this time. Reports worsening incontinence but patient currently being treated for acute UTI, on Bactrim. Wears depends, changes >5 times/day. Patient leaks with urge and also without awareness. She stopped taking Lasix and has not noticed a reduction in incontinence episodes. Recommend continuing Trospium at this time and consider medication change to Myrbetriq/Gemtesa in the future, once infection clears. Briefly discussed other options including Botox/SNM. Patient agrees to wait and consider medication change at future visit once not acutely infected -See #1 -Cont timed voids, avoid bladder irritants -Cont Trospium 60 mg qAM Ordered: Body Mass Index (BMI) documented 3008F Current tobacco non-user 1036F Depression Screening Negative 3352F E&M of Est. Patient Moderate 30-39 Min 36322 Influenza immunization status assessed 1030F Medication list documented in medical record 1159F Most recent diastolic blood pressure <80 mm Hg 3078F Patient screen for fall risk: no falls in last year or 1 fall with no injury in last year 1101F Review of all meds by a prescribing practitioner or clinical pharmacist documented in EHR 1160F Systolic BP <130 mm Hg (Most Recent) 3074F Urnls Dip Stick Auto w/o Microsco (more content not included)... Normal [facility] Comment on above: Result Comment: Elec tronically Signed By: Monserrat EDEN, Kori\.br\Date and Time Signed: 04/14/24 14:04 EST C Urineon 04-03-2024 Bacteria identified Cx Nom (U) Microbiology PROCEDURE: Urine Culture [R1] SOURCE: U Random BODY SITE: COLLECTED DATE/TIME: 04/01/2024 10:09 EST RECEIVED DATE/TIME: 04/01/2024 18:45 EST START DATE/TIME: 04/01/2024 18:45 EST FREE TEXT SOURCE: VASQUEZ VIDES, Alexandr OVALLE MD, Alexandr Isaac FINAL REPORTS Final Report [] Verified Date/Time: 04/03/2024 10:55 EST >100,000 cfu/ml Escherichia coli 75,000 cfu/ml Klebsiella pneumoniae SUSCEPTIBILITY RESULTS LEGEND: S=Susceptible, N/R=Not Reported, Blank=Data not available, or drug not advisable or tested, I=Intermediate, ESBL=Extended spectrum beta-lactamase, R=Resistant, TFG=Thymidine-depende nt strain, ANA=Beta-lactamase positive, QUINTIN=mcg/m;(mg/L), S*=Predicted susceptible interp, R*=Predicted resistant interp EC Klepne Antibiotic QUINTIN Dilutn QUINTIN Interp QUINTIN Dilutn QUINTIN Interp Ampicillin <=8 S <=8 R* Ampicillin/ <=8/4 S <=8/4 S Sulbactam Aztreonam <=4 S <=4 S Cefazolin <=2 S <=2 S Cefepime <=2 S <=2 S Ceftazidime <=1 S <=1 S Ceftazidime/ <=8 S <=8 S Avibactam Ceftriaxone <=1 S <=1 S Cefuroxime <=4 S <=4 S Ciprofloxacin <=0.25 S <=0.25 S Ertapenem <=0.5 S <=0.5 S Gentamicin <=2 S <=2 S Levofloxacin <=0.5 S <=0.5 S Meropenem <=1 S <=1 S Nitrofurantoin <=32 S <=32 S Piperacillin/ <=8 S <=8 S Tazobactam Tetracycline <=4 S <=4 S Tobramycin <=2 S <=2 S Trimethoprim/ <=2/38 S <=2/38 S Sulfa Performing Locations R1: This test was performed at: [facility], [address] [place] [address], [id number]- , [place], Normal [facility] Comment on above: Performed By: #### [id number] #### [facility] [address] [place] [id number] Ambulatory Visit Summaryon 0 04-01-2024 Ambulatory Visit Summary Ambulatory Visit Summary OZZIE WALKER :1950 Visit Date:04/01/2024 Ambulatory Visit Instructions Your Diagnosis Recurrent UTI Incontinence without sensory awareness Your Care Team Attending Physician - BERNICE CLEMENTE PA-C Primary Care Physician - BARB VIDES, [facility] This Is Your Medications List Misc Prescription (BACLOFEN 20MG TAB) amlodipine (amLODIPine 2.5 mg Tab) aspirin (aspirin 81 mg Chew Tab) ciprofloxacin (ciprofloxacin 500 mg Tab) clonazepam (ClonazePAM 0.5 mg Tab) estradiol topical (Estrace 0.1 mg/g Cream) ferrous sulfate (FeroSul 325 mg oral tablet) furosemide (Lasix 20 mg Tab) metoprolol (metoprolol 25 mg ER Tab) potassium chloride (Potassium Chloride (Fqj-Dijn-Sny M10) 10 mEq oral tablet, extended release) quetiapine (quetiapine 50 mg oral tablet) rosuvastatin (rosuvastatin 20 mg Tab) topiramate (topiramate 50 mg Tab) trospium (trospium 60 mg oral capsule, extended release) Procedures Performed Colonoscopy (05/12/2021), Breast surgery, Gastric bypass, Hysterectomy, Knee replacement. Discharge Vitals Heart Rate (Peripheral) 63 Respiratory Rate 17 Blood Pressure 105/58 Height 160 cm Height 63 in Weight 60 kg Weight 132.277 lb BMI 23.44 What to do next Scheduled Follow-Up Appointments Saturday 11:20 AM EDT With: BERNICE CLEMENTE PA-C Where: [facility] [place] [address] [place] [place] [address]- You Need to Complete the Following Urine Culture, Urine Random, Routine collect, 04/01/24, Order for future visit, Nurse collect, Recurrent UTI, Not Required, Print Label By Order Location Medications What How Much When Why Instructions New estradiol topical (Estrace 0.1 mg/ g Cream) See instructions Refills: 6 apply a pea-sized amount vaginally and around the urethra nightly x 3 weeks, then 3x per week thereafter Pickup at [facility] Unchanged amlodipine (amLODIPine 2.5 mg Tab) Unchanged aspirin (aspirin 81 mg Chew Tab) Chewed Every day Unchanged ciprofloxacin (ciprofloxacin 500 mg Tab) Unchanged clonazepam (ClonazePAM 0.5 mg Tab) Unchanged ferrous sulfate (FeroSul 325 mg oral tablet) By Mouth 3 times a day Unchanged furosemide (Lasix 20 mg Tab) 0.5 Tablets By Mouth Every day Unchanged metoprolol (metoprolol 25 mg ER Tab) By Mouth Every day Unchanged Misc Prescription (BACLOFEN 20MG TAB) 0 Unchanged potassium chloride (Potassium Chloride (Nat-Egqw-Bbg M10) 10 mEq oral tablet, extended release) Unchanged quetiapine (quetiapine 50 mg oral tablet) Unchanged rosuvastatin (rosuvastatin 20 mg Tab) Unchanged topiramate (topiramate 50 mg Tab) Unchanged trospium (trospium 60 mg oral capsule, extended release) 1 Capsules By Mouth Once a day (in the morning) Urinary incontinence without sensory awareness Duration: 90 Days Pharm[facility] Information [facility] [address] [facility] [place] [id number] [phone] Allergies penicillin Problems Ongoing - Any problem that you are currently receiving treatment for. Dysuria Headache Hypertension Incontinence without sensory awareness Recurrent UTI Stroke UTI (urinary tract infection) White matter disease Patient Survey You may receive a survey via text or e-mail asking about your office visit. Please share your experience with us by completing your survey. We appreciate your feedback and thank you for choosing us for your care. Normal [facility] Urology Office/Clinic Noteon 04-01-2024 Urology Office/Clinic Note Urology Office/Clinic Note Chief Complaint 2 month with PVR HPI Staff 2 mo recurrent UTI f/u with PVR. PCR 24 cc. Pt started OTC supplements (cranberry, probiotics, D-mannose) at prior OV. *Trospium 60 mg qAM Has been having really bad diarrhea since last week. Dysuria: has pain and burning while urinating Incomplete bladder emptying: yes Hematuria: denies visible blood Frequency: denies Urgency: yes Nocturia: 3 x a night Stream: denies straining, has a steady stream, sometimes has stop and go Leaking: yes Post void dripping: denies Wearing pads/ Depends: depends daily, changes them 3-4 x a day Urge incontinence: yes Stress incontinence: denies Incontinence without Sensory Awareness: yes Abdominal pain: some lower abdominal pain Flank pain: denies Sexual complaints: _ History of Present Illness staff HPI reviewed and agree. Tests Reviewed: Reviewed UA and KUB. Review of Systems PHQ Score Initial Depression Screen Score: 0 SCORE no fever, chills, malaise, myalgia. no rash/lesions. no chest pain, palpitations, or SOB. no abdominal pain, nausea, vomiting. no unilateral calf swelling, redness, pain Physical Exam Vitals & Measurements HR: 63(Peripheral) RR: 17 BP: 105/58 HT: 63 in HT: 160 cm WT: 60 kg WT: 132.277 lb BMI: 23.44 General: nontoxic, NAD Mouth: moist mucosa Lungs: normal respiratory effort Cardio: regular rate, good distal perfusion Abdomen: nondistended, no suprapubic distention or tenderness, no CVA tenderness Neurologic: Grossly normal Skin: No rashes or suspicious lesions Assessment/Plan Ozzie is a 73 yo female here for a 2 month recurrent UTI f/u with PVR. Patient here today with son 1. Recurrent UTI (N39.0: Urinary tract infection, site not specified) 04/2023 - Klebsiella 07/15/23 - E Coli - tx w/ Macrobid 10/26/23 - >100K Klebsiella, >100K ESBL E. Coli - tx w/ Bactrim 11/16/23- >100K E. Coli, probable ESBL 01/31/24 - E. Coli, Strep agalactiae - tx w/ macrobid, switched to cipro based on sensitivity 02/20/24 - Klebsiella - tx w/ Bactrim x 10d 10/26/23 Bun/Mill Tender Washing/GFR nl. TODAY: Pt started OTC UTI preventives after last visit as instructed. However had breakthrough UTI in Feb and infected again now. UA today shows trace ketones, traced- lysed blood, positive nits, large blood. Reviewed UA. Patient does reports some burning and pain while urinating. KUB 04/01/24 [facility] - independent review - I don't appreciate any significant stone burden to explain her recurrent UTIs. We will start pt on topical estrogen cream. Reasoning, side effects, risks/benefits discussed. Rx sent to pharmacy. Patient's PH was 6 today. Will have the patient start Vit C then if pH <5.5 next visit can start Methenamine. -Cont OTC supplements (cranberry, probiotics, D-mannose) -Add Vitamin C and Estrogen cream -Will send urine for culture and send extended course abx once final. 2. Incontinence without sensory awareness (N39.42: Incontinence without sensory awareness) PVR 01/29/24 - 19mL 04/01/24 - 24mL Currently taking Trospium 60 mg qAM. Reports no bothersome SEs at this time. Patient reports she is still wearing depends for leakage, states she changes them about 3-4x a day. BBSQ: 20 (Severe). Likely contributing to #1. -Cont time voids -Cont Trospium 60 mg qAM Follow-up With When Contact Information CORRIE EDEN, BERNICE Carias, URL [address] [facility] [place] [address] Additional Instructions: -Follow up in 2-3 weeks Patient Education Overactive Bladder, Adult I, Judy Cool, personally scribed for FLOR Amezquita on 04/01/2024 10:31:42. . Documentation recorded by the evie Cool accurately reflects the services(s) I performed and decisions made by me. Authenticated by Bernice Clemente PA-C on 04/01/2024 10:57:21. Problem List/Past Medical History Ongoing Dysuria Headache Hypertension Incontinence without sensory awareness Recurrent UTI Stroke UTI (urinary tract infection) White matter disease Historical No qualifying data Procedure/Surgical History Colonoscopy (05/12/2021), Breast surgery, Gastric bypass, Hysterectomy, Knee replacement. Medications amLODIPine 2.5 mg Tab aspirin 81 mg Chew Tab, Chewed, Daily BACLOFEN 20MG TAB, 0 ciprofloxacin 500 mg Tab ClonazePAM 0.5 mg Tab Estrace 0.1 mg/g Cream, See Instructions, 6 refills FeroSul 325 mg oral tablet, Oral, TID Lasix 20 mg Tab, 10 mg= 0.5 tab(s), Oral, Daily metoprolol 25 mg ER Tab, Oral, Daily Potassium Chloride (Scw-Zawz-Gvu M10) 10 mEq oral tablet, extended release quetiapine 50 mg oral tablet rosuvastatin 20 mg Tab topiramate 50 mg Tab trospium 60 mg oral capsule, extended release, 60 mg= 1 cap(s), Oral, qAM, 3 refills Allergies penicillin Social History Tobacco Never (less than 100 in lifetime) Tobacco Use:. Never Smokeless Tobacco Use:. Household toba (more content not included)... [facility] Comment on above: Result Comment: Elec tronically Signed By: BERNICE CLEMENTE PA-C\.br\Date and Time Signed: 04/01/24 10:57 EST\.br\Electronically Co-Signed By: Judy Cool\.br\Date and Time Co-Signed: 04/01/24 10:32 EST XR Abdomen 1 Viewon 04-01-19 XR Abdomen 1 View Exam Date/Time: 04/01/2024 09:48 EST Reason for Exam: Incontinence Report IMPRESSION: NO URINARY TRACT CALCIFICATION IS EVIDENT. CLINICAL HISTORY: Incontinence. Abdominal pain. COMMENT: AP supine. There is gas in nondistended bowel. No dilated bowel loops are noted. There are calcifications of the abdominal aorta and iliac arteries and common femoral arteries. No urinary tract calcification is evident on this study. There is lumbar levoscoliosis and there is lumbar spondylosis. Ordering Provider: , FINAL REPORT Dictated: 04/01/2024 11:16 am Aneesh Bermudez M.D. Signed (Electronic Signature): 04/01/2024 11:16 am Signed by: Aneesh Bermudez M.D. Transcribed by: RUMA Technologist: MARY [facility] C Urineon 02-22-2024 Bacteria identified Cx Nom (U) Microbiology PROCEDURE: Urine Culture [R1] SOURCE: U CleanCatch BODY SITE: COLLECTED DATE/TIME: 02/20/2024 11:30 EST RECEIVED DATE/TIME: 02/20/2024 18:39 EST START DATE/TIME: 02/20/2024 18:39 EST FREE TEXT SOURCE: CORRIE EDEN, BERNICE CLEMENTE PA-C, BERINCE Carias FINAL REPORTS Final Report [] Verified Date/Time: 02/22/2024 11:14 EST >100,000 cfu/ml Klebsiella pneumoniae SUSCEPTIBILITY RESULTS LEGEND: S=Susceptible, N/R=Not Reported, Blank=Data not available, or drug not advisable or tested, I=Intermediate, ESBL=Extended spectrum beta-lactamase, R=Resistant, TFG=Thymidine-depende nt strain, ANA=Beta-lactamase positive, QUINTIN=mcg/m;(mg/L), S*=Predicted susceptible interp, R*=Predicted resistant interp Klepne Antibiotic QUINTIN Dilutn QUINTIN Interp Ampicillin >16 R Ampicillin/ <=8/4 S Sulbactam Aztreonam <=4 S Cefazolin <=2 S Cefepime <=2 S Ceftazidime <=1 S Ceftazidime/ <=8 S Avibactam Ceftriaxone <=1 S Cefuroxime 8 S Ciprofloxacin 1 R Ertapenem <=0.5 S Gentamicin <=2 S Levofloxacin 1 I Meropenem <=1 S Nitrofurantoin >64 R Piperacillin/ <=8 S Tazobactam Tetracycline <=4 S Tobramycin <=2 S Trimethoprim/ <=2/38 S Sulfa Performing Locations R1: This test was performed at: [facility], [address] [place] [address], [id number]- , [place], Normal [facility] Comment on above: Performed By: #### 2 [id number] #### [facility] [address] [place] [address] US ankle/arm indiceson 02-20 US ankle/arm indices [facility] [address] [place] [address] Ultrasound Report Signed Patient: Ozzie Gifford MR#: [id number] : 1950 Acct:[id number] Age/Sex: 73 / F ADM Date: 02/20/24 Loc: [facility] Room: Type: [facility] Attending Dr: Denver Juaerz MD Ordering Provider: Denver Juarez MD Date of Service: 02/20/24 US/US ankle/arm indices: I70.213 Copies to: Denver Juarez MD LOWER EXTREMITY SEGMENTAL ARTERIAL DOPSCAN (PVR) INDICATION: Intermittent claudication. PROCEDURE: Right arm blood pressure is 111 , left is 117 . Pressures of the right leg are 138 at the ankle using the posterior tibial artery and 124 at the ankle using the dorsalis pedis artery w ith ankle-brachial index of 1.06 1.18 . Pressures of the left leg are 73 at the ankle using the posterior tibial artery and 79 at the ankle using the dorsalis pedis artery with ankle-brachial index of 0.68 0.62 . Wave forms by plethysmography are normal in the right lower extremity and biphasic in the left lower extremity. 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 Impression dictated by: Denver Juarez MD02/21/2024 3:36 PM Dictation Location: [id number] Tech: Bernice Oneil Transcribed By: SHYANN 02/21/241535 Dictated By: Denver Juarez MD 02/21/241534 Signed By: 02/21/241535 Normal [facility] US carotid doppler BIon 01- US carotid doppler BI [facility] [address] [place] [address] Ultrasound Report Signed Patient: Ozzie Gifford MR#: [id number] : 1950 Acct:[id number] Age/Sex: 73 / F ADM Date: 02/20/24 Loc: [facility] Room: Type: [facility] Attending Dr: Denver Juarez MD Ordering Provider: Denver Juarez MD Date of Service: 02/20/24 US/US carotid doppler BI: I63.512 - Cerebral infarction due to unspecified occlusio... Copies to: Denver Juarez MD CAROTID DUPLEX INDICATION: Surveillance study after right carotid stent placement. PROCEDURE: Color-flow duplex scanning is used to interrogate the extracranial carotid arterial system, as well as both vertebral arteries. The proximal right internal carotid artery shows a highest peak systolic velocity of 70.8 cm/s with an end-diastolic velocity of 18 cm/s . The mid internal carotid artery measures 73.3 cm/s peak systolic with an end-diastolic velocity of 21.1 cm/s . The distal segment measures 82 cm/s peak systolic with an end diastolic velocity of 29.8 cm/s . The velocities of the right common carotid artery are 118 cm/s peak systolic and 15.7 cm/s end- diastolic proximally and 74.6 cm/s peak systolic and 13.7 cm/s end-diastolic distally. The peak systolic velocity ratio of the internal to the common carotid artery is 0.69 . The right external carotid artery measures 135 cm/s peak systolic. The right vertebral artery is patent at 28.5 cm/s peak systolic and with antegrade flow. The proximal left internal carotid artery shows a highest peak systolic velocity of 73.2 cm/s with an end-diastolic velocity of 17.2 cm/s . The mid internal carotid artery measures 85.6 cm/s peak systolic with an end-diastolic velocity of 17.6 cm/s . The distal segment measures 113 cm/s peak systolic with an end diastolic velocity of 24.5 cm/s . The velocities of the left common carotid artery are 64.9 cm/s peak systolic and 11.3 cm/s end-diastolic proximally and 49 cm/s peak systolic and 11.4 cm/s end-diastolic distally. The peak systolic velocity ratio of the internal to the common carotid artery is 1.74 . The left external carotid artery measures 55.7 cm/s peak systolic. The left vertebral artery is patent at 81.3 cm/s peak systolic with antegrade flow. US/US carotid doppler BI IMPRESSION: NO HEMODYNAMICALLY SIGNIFICANT STENOSIS OF EITHER EXTRACRANIAL INTERNAL CAROTID ARTERY. BOTH VERTEBRAL ARTERIES ARE PATENT WITH ANTEGRADE FLOW. Impression dictated by: Denver Juarez MD02/21/2024 3:36 PM Dictation Location: [place] [address] Tech: Ama Mcfarlane Transcribed By: SHYANN 02/21/24 1536 Dictated By: Denver Juarez MD 02/21/24 1536 Signed By: 02/21/24 1536 Normal [facility] URINALYSISOrdered By: SYSTEM SYSTEM on 02-20-2024 Bacteria Auto Ql (U) 2+ /HPF Invalid Interpretation Code Trace/HPF [facility] UA Auto SS Bilirubin Ql (U) Negative Normal Negativemg/ dL [facility] UA Auto SS Calcium oxalate crystals Computer assisted Ql (U) Present graded/HPF Invalid Interpretation Code [facility] UA Auto SS Clarity (U) Turbid *ABN* (02/20/24 11:30 AM) Invalid Interpretation Code Clear [facility] UA Auto SS Color (U) Yellow 1 (02/20/24 11:30 AM) Normal Yellow [facility] UA Auto SS Comment on above: Interpretive Data: M icroscopic readings are only performed on those samples that meet specific criteria set forth by [facility]. Epithelial cells.squamous Auto (Urine sed) [#/Area] 3-4 graded/HPF Invalid Interpretation Code [facility] UA Auto SS Glucose Ql (U) Negative Normal Negativemg/ dL [facility] UA Auto SS Hemoglobin Auto test strip (U) [Mass/Vol] Negative Normal Negativemg/ dL [facility] UA Auto SS Ketones Auto test strip Ql (U) Negative Normal Negativemg/ dL [facility] UA Auto SS Leukocyte esterase Auto test strip Ql (U) 250 Kee/uL Kee/uL Invalid Interpretation Code NegativeLeu /uL [facility] UA Auto SS Mucus Auto Ql (U) Trace graded/LPF Normal Negati vegra ded/LPF [facility] UA Auto SS Nitrite Auto test strip Ql (U) 2+ mg/dL Invalid Interpretation Code Negativemg/ dL [facility] UA Auto SS pH (U) 5.5 *NA* (02/20/24 11:30 AM) Invalid Interpretation Code 5.0 - 9.0 [facility] UA Auto SS Protein Ql (U) Negative Normal Negativemg/ dL [facility] UA Auto SS RBC Ql (U) 0-3 graded/HPF Normal 0-3graded/H PF [facility] UA Auto SS Specific gravity (U) [Rel density] 1.025 *NA* (02/20/24 11:30 AM) Invalid Interpretation Code 1.005 - 1.030 [facility] UA Auto SS Urobilinogen (U) [Mass/Vol] Negative Normal Negativemg/ dL [facility] UA Auto SS WBC Auto (Urine sed) [#/Area] 31-75 graded/HPF Invalid Interpretation Code 0-5graded/H PF [facility] UA Auto SS URINALYSISOrdered By: Conner Adan on 02-20-2024 UA Spec Desc Clean Catch (02/20/24 11:30 AM) Normal [facility] UA Auto SS Urinalysis with Microon Bacteria Auto Ql (U) 2+ /HPF Abnormal Trace [facility] Comment on above: Performed By: #### 4 [id number] #### [facility] [address] [place] [address] Bilirubin Ql (U) Negative Normal Negative [facility] Comment on above: Performed By: #### 4 [id number] #### [facility] [address] [place] [address] Calcium oxalate crystals Computer assisted Ql (U) Present Abnormal [facility] Comment on above: Performed By: #### 4 [id number] #### [facility] [address] [place] [address] Clarity (U) Turbid Abnormal Clear [facility] Comment on above: Performed By: #### 4 [id number] #### [facility] [address] [place] [address] Color (U) Yellow Normal Yellow [facility] Comment on above: Result Comment: Micr oscopic readings are only performed on those samples that meet specific criteria set forth by [facility]. Performed By: #### 4 [id number] #### [facility] [address] [place] [address] Epithelial cells.squamous Auto (Urine sed) [#/Area] 3-4 Invalid Interpretation Code [facility] Comment on above: Performed By: #### 4 [id number] #### [facility] [address] [place] [address] Glucose Ql (U) Negative Normal Negative [facility] Comment on above: Performed By: #### 4 [id number] #### [facility] [address] [place] [address] Hemoglobin Auto test strip (U) [Mass/Vol] Negative Normal Negative [facility] Comment on above: Performed By: #### 4 [id number] #### [facility] [address] [place] [address] Ketones Auto test strip Ql (U) Negative Normal Negative [facility] Comment on above: Performed By: #### 4 [id number] #### [facility] [address] [place] [address] Leukocyte esterase Auto test strip Ql (U) 250 Kee/uL Abnormal Negative [facility] Comment on above: Performed By: #### 4 [id number] #### [facility] [address] [place] [address] Mucus Auto Ql (U) Trace Normal Negative [facility] Comment on above: Performed By: #### 4 [id number] #### [facility] [address] [place] [address] Nitrite Auto test strip Ql (U) 2+ mg/dL Abnormal Negative [facility] Comment on above: Performed By: #### 4 [id number] #### [facility] [address] [place] [address] pH (U) 5.5 [pH] Invalid Interpretation Code 5.0-9.0 [facility] Comment on above: Performed By: #### 4 [id number] #### [facility] [address] [place] [address] Protein Ql (U) Negative Normal Negative [facility] Comment on above: Performed By: #### 4 [id number] #### [facility] [address] [place] [address] RBC Ql (U) 0-3 Normal 0-3 [facility] Comment on above: Performed By: #### 4 [id number] #### [facility] [address] [place] [address] Specific gravity (U) [Rel density] 1.025 Invalid Interpretation Code 1.005-1.030 [facility] Comment on above: Performed By: #### 4 [id number] #### [facility] [address] [place] [address] Urobilinogen (U) [Mass/Vol] Negative Normal Negative [facility] Comment on above: Performed By: #### 4 [id number] #### [facility] [address] [place] [address] WBC Auto (Urine sed) [#/Area] 31-75 Abnormal 0-5 [facility] Comment on above: Performed By: #### 4 [id number] #### [facility] [address] [place] [address] Type of Urine collection method Clean Catch Normal [facility] Comment on above: Performed By: #### 4 [id number] #### [facility] [address] [place] [address] Ambulatory Visit Summaryon 1 03-31-2023 Ambulatory Visit Summary Ambulatory Visit Summary OZZIE WALKER :1950 Visit Date:01/29/2024 Ambulatory Visit Instructions Your Diagnosis UTI (urinary tract infection) Your Care Team Attending Physician - BERNICE CLEMENTE PA-C Primary Care Physician - SHAIKH DAY MD Referring Physician - CINDY COLLADO CNP This Is Your Medications List Misc Prescription (BACLOFEN 20MG TAB) amlodipine (amLODIPine 2.5 mg Tab) aspirin (aspirin 81 mg Chew Tab) ciprofloxacin (ciprofloxacin 500 mg Tab) clonazepam (ClonazePAM 0.5 mg Tab) ferrous sulfate (FeroSul 325 mg oral tablet) furosemide (furosemide 40 mg Tab) metoprolol (metoprolol 25 mg ER Tab) potassium chloride (Potassium Chloride (Qxw-Olaw-Rdm M10) 10 mEq oral tablet, extended release) quetiapine (quetiapine 50 mg oral tablet) rosuvastatin (rosuvastatin 20 mg Tab) topiramate (topiramate 50 mg Tab) trospium (trospium 60 mg oral capsule, extended release) Procedures Performed Breast surgery, Gastric bypass, Hysterectomy, Knee replacement. What to do next Scheduled Follow-Up Appointments Saturday 8:40 AM EST With: BERNICE CLEMENTE PA-C Where: [facility] [address] [place] [address]- Medications What How Much When Why Instructions Unchanged amlodipine (amLODIPine 2.5 mg Tab) Unchanged aspirin (aspirin 81 mg Chew Tab) Chewed Every day Unchanged ciprofloxacin (ciprofloxacin 500 mg Tab) Unchanged clonazepam (ClonazePAM 0.5 mg Tab) Unchanged ferrous sulfate (FeroSul 325 mg oral tablet) By Mouth 3 times a day Unchanged furosemide (furosemide 40 mg Tab) Unchanged metoprolol (metoprolol 25 mg ER Tab) By Mouth Every day Unchanged Misc Prescription (BACLOFEN 20MG TAB) 0 Unchanged potassium chloride (Potassium Chloride (Sry-Zzef-Slf M10) 10 mEq oral tablet, extended release) [...] Headache Hypertension Incontinence without sensory awareness Stroke UTI (urinary tract infection) White matter disease Patient Survey You may receive a survey via text or e-mail asking about your office visit. Please share your experience with us by completing your survey. We appreciate your feedback and thank you for choosing us for your care. Normal [facility] No Panel Informationon 01-21 STAPHYLOCOCCUS EPIDERMIDIS, HAEMOLYTICUS, LUGDUNENSIS, SAPROPHYTICUS (URINA 0 [facility] STAPHYLOCOCCUS EPIDERMIDIS, HAEMOLYTICUS, LUGDUNENSIS, SAPROPHYTICUS (URINA Not detected [facility] URINARY TRACT INFECTION (HTR X)on 01-22-2024 ACINETOBACTER BAUMANII 0 [facility] ACINETOBACTER BAUMANII Not detected [facility] EVANGELINA ALBICANS, PARAPSILOSIS, TROPICALIS 0 [facility] EVANGELINA ALBICANS, PARAPSILOSIS, TROPICALIS Not detected [facility] EVANGELINA GLABRATA 0 [facility] EVANGELINA GLABRATA Not detected [facility] EVANGELINA KRUSEI 0 [facility] EVANGELINA KRUSEI Not detected [facility] CITROBACTER FREUNDII 0 [facility] CITROBACTER FREUNDII Not detected [facility] CTX-M1 (15), M2 (2), M9 (9), M8-25 GROUPS 21.764 Abnormal [facility] CTX-M1 (15), M2 (2), M9 (9), M8-25 GROUPS Detected Abnormal [facility] DFR (A1, A5), SUL (1,2) 18.626 Abnormal [facility] DFR (A1, A5), SUL (1,2) Detected Abnormal [facility] ENTEROBACTER AEROGENES, CLOACAE 0 [facility] ENTEROBACTER AEROGENES, CLOACAE Not detected [facility] ENTEROCOCCUS FAECALIS, FAECIUM 0 [facility] ENTEROCOCCUS FAECALIS, FAECIUM Not detected [facility] ESCHERICHIA COLI 20.787 Abnormal [facility] ESCHERICHIA COLI Detected Abnormal [facility] Interpretation and review of laboratory results Abnormal [facility] KLEBSIELLA PNEUMONIAE, OXYTOCA 0 [facility] KLEBSIELLA PNEUMONIAE, OXYTOCA Not detected [facility] MORGANELLA MORGANII 0 [facility] MORGANELLA MORGANII Not detected [facility] PROTEUS MIRABILIS, VULGARIS 0 [facility] PROTEUS MIRABILIS, VULGARIS Not detected [facility] PSEUDOMONAS AERUGINOSA 0 [facility] PSEUDOMONAS AERUGINOSA Not detected [facility] SERRATIA MARCESCENS 0 [facility] SERRATIA MARCESCENS Not detected [facility] SHV, KPC GROUPS 24.606 Abnormal [facility] SHV, KP GROUPS Detected Abnormal [facility] STAPHYLOCOCCUS AUREUS 0 [facility] STAPHYLOCOCCUS AUREUS Not detected [facility] STREPTOCOCCUS AGALACTIAE (GROUP B STREP) 29.666 Abnormal [facility] STREPTOCOCCUS AGALACTIAE (GROUP B STREP) Detected Abnormal [facility] STREPTOCOCCUS PYOGENES (GROUP A STREP) 0 [facility] STREPTOCOCCUS PYOGENES (GROUP A STREP) Not detected [facility] Urinalysis macro (dipstick) panel (U)on 01-21-2024 Bilirubin, UA 2+ Negative - 4(70) +++ mg/dL [facility] Blood, UA Positive Negative - 50 Joesph/mcL [facility] Clarity, UA Clear [facility] Color, UA Yellow [facility] Glucose, UA Negative Negative - 2000(110) ++++ mg/dL [facility] Interpretation and review of laboratory results Abnormal [facility] Ketones, UA Negative Negative - 160(16) ++++ mg/dL [facility] Leukocytes, UA Positive Negative - 500+++ Kee/mcL [facility] Nitrite, UA Negative Negative - Positive [facility] pH, UA 5 5 - 9 [facility] Protein, UA Positive Negative - 2000(20) ++++ mg/dL [facility] Spec Grav, UA 1.015 1 - 1.03 [facility] Urobilinogen, UA 0.2 0.2 - 12 mg/dL [facility] [place] esophaguson 12-12-2023 [place] esophagus [facility] [place] [address] Fluoroscopy Report Signed Patient: Ozzie Gifford MR#: [id number] : 1950 Acct:[id number] Age/Sex: 73 / F ADM Date: 12/12/23 Loc: XD Room: Type: [facility] Attending Dr: Aime Walls DO Copies to: Aime Walls DO Ordering Provider: Aime Walls DO Date of Service: 12/12/23 FL/FL esophagus: severe solid food dysphagia DOUBLE CONTRAST ESOPHAGRAM CLINICAL HISTORY: Dysphagia COMPARISON: None TECHNIQUE: Double contrast esophagram was performed. Cumulative Air Kerma in mGy: 60.51 mGy FINDINGS: The esophagus appears normal in caliber without stricture, mass or ulcer. Diffuse tertiary contractions were noted. No gastroesophageal reflux was seen during the examination. GE junction appears grossly unremarkable. No hiatal hernia is present. FL/FL esophagus IMPRESSION: DIFFUSE TERTIARY CONTRACTIONS WERE NOTED SUGGESTIVE OF PRESBYESOPHAGUS. NO GASTROESOPHAGEAL REFLUX WAS SEEN. NO ESOPHAGEAL MASS, ULCER OR STRICTURE IS SEEN. Impression dictated by: Wili Flood Jr., D.O.12/12/2023 1:56 PM Dictation Location: [place] [address] Transcribed By: [facility] 12/12/23 1356 Dictated By: Wili Flood Jr, DO 12/12/23 1354 Signed By: 12/12/23 1356 Normal [facility] TB UA (CLEAN/CATCH) [facility] OPIC IF INDICATEon 11-16-2023 BILIRUBIN URINE Negative NEGATIVE [facility] BLOOD URINE Negative NEGATIVE [facility] Clarity (U) CLEAR CLEAR [facility] Color (U) YELLOW YELLOW [facility] GLUCOSE URINE UA Negative NEGATIVE mg/dL [facility] Interpretation and review of laboratory results Abnormal [facility] Ketones Ql (U) Negative NEGATIVE mg/dL [facility] Leukocyte esterase Test strip Ql (U) SMALL Abnormal NEGATIVE [facility] NITRITE URINE Positive Abnormal NEGATIVE [facility] pH (U) 6.5 [pH] 5.0 - 9.0 [facility] PROTEIN URINE Negative NEG/TRACE mg/dL [facility] SPECIFIC GRAVITY URINE 1.020 1.005 - 1.025 [facility] URINE MICROSCOPIC INDICATED YES [facility] UROBILINOGEN URINE 1.0 EU/dL 0.2 - 1.0 EU/dL [facility] ALL CBC WITH AUTO DIFFon BASOPHILS ABSOLUTE AUTO 0.[address] [facility] Basophils/100 WBC (Bld) 1.0 % 0.2 - 2.0 % [facility] Eosinophils/100 WBC (Bld) 9.8 % High 0.9 - 7.0 % [facility] Erythrocyte distribution width (RBC) [Ratio] 12.7 % 11.0 - 15.0 % [facility] Hematocrit (Bld) [Volume fraction] 44.3 % 36.0 - 48.0 % [facility] Hemoglobin (Bld) [Mass/Vol] 14.4 g/dL 12.0 - 16.0 g/dL [facility] IMMATURE GRANULOCYTES ABS AUTO 0.01 [facility] Immature granulocytes/100 WBC (Bld) 0.2 % 0.0 - 0.5 % [facility] Interpretation and review of laboratory results Abnormal [facility] LYMPHOCYTES ABSOLUTE AUTO 1.7 [facility] Lymphocytes/100 WBC (Bld) 34.6 % 20.5 - 60.0 % [facility]CH (RBC) [Entitic mass] 29.1 pg 26.7 - 34.0 pg [facility] MCHC (RBC) [Mass/Vol] 32.5 g/dL 29.9 - 35.2 g/dL [facility] MCV (RBC) [Entitic vol] 89.7 fL 81.0 - 99.0 fL [facility] MONOCYTES ABSOLUTE AUTO 0.4 N [facility] Monocytes/100 WBC (Bld) 7.6 % 1.7 - 12.0 % [facility] NEUTROPHILS ABSOLUTE AUTO 2.3 [facility] Neutrophils/100 WBC (Bld) 46.8 % 43.0 - 75.0 % [facility] Platelet mean volume (Bld) [Entitic vol] 9.9 fL 9.5 - 13.5 fL [facility] TBH EO # 0.5 [facility] Healthcare TB PLT 148 Low [facility] TB RBC 4.94 [facility] TB WBC 4.9 [facility] Office Visiton 09-11-2023 Follow-up visit [id number] Ozzie Gifford 1950 F Date Provider Department Center 09/11/2023 MelisaRUBEN CARRILLO [facility] Family History Problem Relation Age of Onset Hypertension Mother Hypertension Father Heart attack Brother Family Status - Relation Status Age at Mother Father Brother Level of Service:70053 IN OFFICE/OUTPATIENT ESTABLISHED MOD MDM 30 MIN Normal [facility] Ambulatory Visit Summaryon 0 08-21-2023 Ambulatory Visit Summary Ambulatory Visit Summary OZZIE WALKER :1950 Visit Date:08/21/2023 Ambulatory Visit Instructions Your Diagnosis UTI (urinary tract infection) Your Care Team Attending Physician - BERNICE CLEMENTE PA-C Primary Care Physician - BARB VIDES, This Is Your Medications List trospium (trospium 60 mg oral capsule, extended release) Contact prescribing physician if questions or concerns Misc Prescription (BACLOFEN 20MG TAB) amlodipine (amLODIPine 2.5 mg Tab) aspirin (aspirin 81 mg Chew Tab) clonazepam (ClonazePAM 0.5 mg Tab) ferrous sulfate (FeroSul 325 mg oral tablet) furosemide (furosemide 40 mg Tab) metoprolol (metoprolol 25 mg ER Tab) potassium chloride (Potassium Chloride (Loa-Juew-Kvz M10) 10 mEq oral tablet, extended release) quetiapine (quetiapine 50 mg oral tablet) rosuvastatin (rosuvastatin 20 mg Tab) topiramate (topiramate 50 mg Tab) Procedures Performed Breast surgery, Gastric bypass, Hysterectomy, Knee replacement. Discharge Vitals Heart Rate (Peripheral) 62 Respiratory Rate 19 Blood Pressure 130/68 Height 160 cm Height 63 in Weight 60 kg Weight 132 lb BMI 23.44 What to do next You Need to Schedule the Following Appointments Follow Up with BERNICE CLEMENTE PA-C, URL When: Only if needed Where: [address] [place] [address] Business (1) Medications What How Much When Why Instructions Unchanged trospium (trospium 60 mg oral capsule, extended release) 1 Capsules By Mouth Once a day (in the morning) Urinary incontinence without sensory awareness Duration: 90 Days Unchanged amlodipine (amLODIPine 2.5 mg Tab) Contact prescribing physician if questions or concerns Unchanged aspirin (aspirin 81 mg Chew Tab) Chewed Every day Contact prescribing physician if questions or concerns Unchanged clonazepam (ClonazePAM 0.5 mg Tab) Contact prescribing physician if questions or concerns Unchanged ferrous sulfate (FeroSul 325 mg oral tablet) By Mouth 3 times a day Contact prescribing physician if questions or concerns Unchanged furosemide (furosemide 40 mg Tab) Contact prescribing physician if questions or concerns Unchanged metoprolol (metoprolol 25 mg ER Tab) By Mouth Every day Contact prescribing physician if questions or concerns Unchanged Misc Prescription (BACLOFEN 20MG TAB) 0 Contact prescribing physician if questions or concerns Unchanged potassium chloride (Potassium Chloride (Rjb-Senu-Ter M10) 10 mEq oral tablet, extended release) Contact prescribing physician if questions or concerns Unchanged quetiapine (quetiapine 50 mg oral tablet) Contact prescribing physician if questions or concerns Unchanged rosuvastatin (rosuvastatin 20 mg Tab) Contact prescribing physician if questions or concerns Unchanged topiramate (topiramate 50 mg Tab) Contact prescribing physician if questions or concerns Allergies penicillin Problems Ongoing - Any problem that you are currently receiving treatment for. Dysuria Headache Hypertension Incontinence without sensory awareness Stroke UTI (urinary tract infection) White matter disease Patient Survey You may receive a survey via text or e-mail asking about your office visit. Please share your experience with us by completing your survey. We appreciate your feedback and thank you for choosing us for your care. Education Materials Antibiotic Medicine, Adult Antibiotic medicines are used [...] take antibiotics? You may need antibiotics for: ? UTI. ? Strep throat. ? Bacterial sinusitis. ? Meningitis. This infection affects the spinal cord and brain. ? Serious lung infection. You may start antibiotics [...] bacteria. You do not need antibiotics for: ? The common cold. ? Influenza. ? Sore throat. ? Discolored mucus. ? Bronchitis. Antibiotics are not always needed for all infections caused by bacteria. Many of these infections clear up without antibiotic treatment. Do not ask for or take antibiotics when they are not necessary. How long should I take my antibiotic? You must take the entire prescrip (more content not included)... Normal [facility] Urology Office/Clinic Noteon 08-21-2023 Urology Office/Clinic Note Urology Office/Clinic Note Chief Complaint OV due to dysuria HPI Staff Pt here today due to dysuria. Previous DX: dysuria, incontinence without sensory awareness, UTI. PVR today 0ml. Dysuria: pain and burning Incomplete bladder emptying: unsure Hematuria: denies visible blood Frequency: a lot Urgency: yes Nocturia: 2-3x a night Stream: denies hesitancy Leaking: yes Post void dripping: denies Wearing pads/ Depends: wears double depends Urge incontinence: yes Stress incontinence: denies Incontinence without Sensory Awareness: yes Abdominal pain: denies Flank pain: denies Sexual complaints: _ Review of Systems PHQ Score Initial Depression Screen Score: 0 SCORE no fever, chills, malaise, myalgia. no rash/lesions. no chest pain, palpitations, or SOB. no abdominal pain, nausea, vomiting. no unilateral calf swelling, redness, pain Physical Exam Vitals & Measurements HR: 62(Peripheral) RR: 19 BP: 130/68 HT: 63 in HT: 160 cm WT: 60 kg WT: 132 lb BMI: 23.44 General: nontoxic, NAD Mouth: moist mucosa Lungs: normal respiratory effort Cardio: regular rate, good distal perfusion Abdomen: nondistended, no suprapubic distention or tenderness, no CVA tenderness Neurologic: Grossly normal Skin: No rashes or suspicious lesions Assessment/Plan 1. UTI (urinary tract infection) (N39.0: Urinary tract infection, site not specified) was seen IO 07/15/23 for dysuria, odor, frequency/urgency. cx showed E Coli. pt was treated w Macrobid x 7d. says sx improved for a few weeks. called 08/13 bc sx were back. wasn't able to come drop a sample so we treated empirically w Bactrim x 3d. pt states she is worried she might still be infected. says burning has resolved, but she is still noticing odor and cloudiness to urine. IO UA shows trace leuks only. I explained she does not appear infected. upon questioning, pt only drinks coffee and tea throughout the day, very little volume of either due to previous gastric sleeve. no other fluids. I explained that cloudiness/odor could certainly be due to dehydration/concentra henry urine. encouraged hydration including water, juice, lemonade, etc. call if dysuria recurs. otherwise f/u as planned for incontinence w AO. Ordered: [id number] Measure Post Void residual urine and/or bladder capacity by US- non-imaging E&M of Est. Patient Low 20-29 Min 25236 Urnls Dip Stick Auto w/o Microscopy POC 98676 Follow-up With When Contact Information CORRIE EDEN, BERNICE Carias, URL Only if needed [address] [place] [address] [facility] (1) Additional Instructions: Patient Education Antibiotic Medicine, Adult Problem List/Past Medical History Ongoing Dysuria Headache Hypertension Incontinence without sensory awareness Stroke UTI (urinary tract infection) White matter disease Historical No qualifying data Procedure/Surgical History Breast surgery, Gastric bypass, Hysterectomy, Knee replacement. Medications amLODIPine 2.5 mg Tab aspirin 81 mg Chew Tab, Chewed, Daily BACLOFEN 20MG TAB, 0 ClonazePAM 0.5 mg Tab FeroSul 325 mg oral tablet, Oral, TID furosemide 40 mg Tab metoprolol 25 mg ER Tab, Oral, Daily Potassium Chloride (Hgo-Ksxw-Nbe M10) 10 mEq oral tablet, extended release quetiapine 50 mg oral tablet rosuvastatin 20 mg Tab topiramate 50 mg Tab trospium 60 mg oral capsule, extended release, 60 mg= 1 cap(s), Oral, qAM, 3 refills Allergies penicillin Social History Tobacco Never (less than 100 in lifetime) Tobacco Use:. Never Smokeless Tobacco Use:., 08/21/2023 Family History Primary malignant neoplasm of bone: Father. Primary malignant neoplasm of brain: Mother. Primary malignant neoplasm of female breast: Mother. Immunizations Vaccine Date Status pneumococcal 20-valent conjugate vaccine 11/24/2022 Recorded influenza virus vaccine, inactivated 11/24/2022 Recorded influenza virus vaccine, inactivated 01/20/2022 Recorded influenza virus vaccine, inactivated 11/26/2020 Recorded SARS-CoV-2 (COVID-19) Ad26 vaccine 06/11/2020 Recorded influenza virus vaccine, inactivated 12/09/2019 Recorded influenza virus vaccine, inactivated 12/22/2018 Recorded Lab Results Ambulatory Point of Care Results Bilirubin Urine Dipstick: Negative (08/21/23 13:18:00) Blood Urine Dipstick: Negative (08/21/23 13:18:00) Glucose Urine Dipstick: Negative (08/21/23 13:18:00) Ketones Urine Dipstick: Negative (08/21/23 13:18:00) Leukocytes Urine Dipstick: Trace (08/21/23 13:18:00) Nitrite Urine Dipstick: Negative (08/21/23 13:18:00) Protein Urine Dipstick: Negative (08/21/23 13:18:00) Specific [place] Urine Dipstick: 1.020 (08/21/23 13:18:00) Urine Appearance Urine Dipstick: Clear (08/21/23 13:18:00) Urine Color Urine Dipstick: Yellow (08/21/23 13:18:00) Urobilinogen Urine Dipstick: Normal 0.2-1 EU/dl (08/21/23 13:18:00) pH Urine Dipstick: 5 (08/21/23 13:18:00) Normal [facility] Comment on above: Result Comment: Elec tronically Signed By: CORRIE EDEN, BERNICE Perdomobr\Date and Time Signed: 08/21/23 13:54 EDT US carotid doppler BIon 06- US carotid doppler BI [facility] [address] [place] [address] Ultrasound Report Signed Patient: Ozzie Gifford MR#: [id number] : 1950 Acct:[id number] Age/Sex: 73 / F ADM Date: 08/08/23 Loc: [facility] Room: Type: [facility] Attending Dr: Felicita VINES Ordering Provider: Felicita Sumner APRN Date of [...] Denver Juarez MD08/08/2023 2:26 PM Dictation Location: [place] [address] Tech: Judy Shilpi Transcribed By: SHYANN 08/08/23 1426 Dictated By: Denver Juarez MD 08/08/23 1426 Signed By: 08/08/23 1426 Normal [facility] C Urineon 07-17-2023 Bacteria identified Cx Nom (U) Microbiology PROCEDURE: Urine Culture [R1] SOURCE: U CleanCatch BODY SITE: COLLECTED DATE/TIME: 07/15/2023 13:56 EDT RECEIVED DATE/TIME: 07/15/2023 18:58 EDT START DATE/TIME: 07/15/2023 18:58 EDT FREE TEXT SOURCE: Ingrid LINDSEY, MAURICIOC, Ingrid LINDSEY, SAI-C, Carmen X Carmen X FINAL REPORTS Final [...] Locations R1: This test was performed at: [facility], [address] [place] [address], [id number]- , [place], Normal [facility] Comment on above: Performed By: #### 2 [id number] #### [facility] [address] [place] [id number] Ambulatory Visit Summaryon 0 07-15-2023 Ambulatory Visit [...] mg ER Tab) potassium chloride (Potassium Chloride (Fxg-Bdht-Qup M10) 10 mEq oral tablet, extended release) [...] TAB) 0 Unchanged potassium chloride (Potassium Chloride (Hjx-Nfnj-Hvz M10) 10 mEq oral tablet, extended release) [...] you for choosing us for your care. Normal [facility] Patient Educationon 07-15-19 Patient Education Obstetrics [...] this condition includes: ? Antibiotic medicine. ? Kwwz-ldh-tydfnob medicines to treat discomfort. ? Drinking enough [...] these instructions at home: Medicines ? Take cbga-ihd-abulteu and prescription medicines only as told by [...] Document Revie (more content not included)... Normal [facility] Urology Office/Clinic Noteon 07-15-2023 Urology Office/Clinic Note [...] with voice recognition artificial intelligence software, specifically [employer], [employer] and or [employer]. 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 She is tolerating it well without side effects. Refill sent to pharmacy. -Continue timed voids, voiding maneuvers -Follow-up 1 year for med recheck, sooner if needed Urinary incontinence without sensory awareness Ordered: trospium, 60 mg = 1 cap(s), Oral, qAM, X 90 day(s), # 90 cap(s), Refills(s) 3, Pharmacy: [facility] #[id number], 160, cm, 07/15/23 12:40:00 EDT, Height/Length Dosing, 60, kg, 07/15/23 12:40:00 EDT, Weight Dosing trospium, 60 mg = 1 cap(s), Oral, qAM, X 90 day(s), # 90 cap(s), Refills(s) 0, Pharmacy: [facility] #[id number], 160, cm, 03/07/23 10:58:00 EST, Height/Length Dosing, 60, kg, 03/07/23 10:58:00 EST, Weight Dosing 64085 Measure Post Void residual urine and/or bladder capacity by US- non-imaging 3. White matter disease (R90.82: White matter disease, unspecified) [facility] inpatient stay 03/01/23 - for head stuff per patient. CT brain w/o con 03/01/23 - stable atrophy and white matter disease [1] Patient is here with her today, states that she is following with neurology regarding her memory and worsening ambulation. Ordered: [id number] Measure Post Void residual urine and/or bladder capacity by US- non-imaging Orders: Urnls Dip Stick Auto w/o Microscopy POC 46494 Follow-up With When Contact Information MITRA Quintero APRN, Carmen Rm, FAM, URL Additional Instructions: 1 yr w/ PVR Patient Education Urinary Tract Infection, Adult Urinary Incontinence Problem List/Past Medical History Ongoing Dysuria Headache Hypertension Incontinence without sensory awareness Strok (more content not included)... Normal [facility] Comment on above: Result Comment: Elec tronically Signed By: MITRA Quintero APRN, [place] X\.br\Date and Time Signed: 07/15/23 13:40 EDT Laboratory - Chemistry and C hemistry - challengeon 05-11-2023 Bilirubin Ql (U) Negative [facility] Glucose (U) [Mass/Vol] Negative [facility] Ketones Ql (U) trace [facility] pH (U) 5.5 [pH] [facility] Specific gravity (U) [Rel density] 1.025 [facility] Urobilinogen (U) [Mass/Vol] 0.2 mg/dL [facility] Laboratory - Specimen inform ationon 05-11-2023 Appearance (U) clear [facility] Color (U) darkyellow [facility] Laboratory - Urinalysison Leukocyte esterase Test strip Ql (U) small [facility] Nitrite Ql (U) Positive [facility] Protein Ql (U) Negative [facility] No Panel Informationon 05-10 Urine Occult Blood Negative [facility] Urine Cultureon 05-11-2023 Bacteria identified Cx Nom (U) ORGANISM: Gram Negative Bacilli (O:GNB) [place] Count >100,000 PERFORMED BY: [place] [address] PATHOLOGIST SUPPLY CHAIN ANALYST YOCASTA BYRNE M.D. Normal [facility] Comment on above: Performed By: #### C UU #### [address] Bacteria identified Cx Nom (U) ORGANISM: Klebsiella pneumoniae (O:KLEPNE) [place] Count >100,000 Aerobic QUINTIN Charge ([id number]) ---- [...] RESISTANT TO ALL B-LACTAM DRUGS. PERFORMED BY: [place] [address] PATHOLOGIST SUPPLY CHAIN ANALYST YOCASTA BYRNE M.D. Normal [facility] Comment on above: Performed By: #### C UU #### [address] Urine culture routineon 04-13 Bacteria identified Cx Nom (U) Klebsiella pneumoniae Abnormal [facility] Activated Clotting Timeon Activated Clotting Time POC 298 s High 90-139 [facility] Comment on above: Result Comment: Refe rence Range: 90-139 (Non-heparinized) PERFORMED BY: [place] [address] PATHOLOGIST SUPPLY CHAIN ANALYST YOCASTA BYRNE M.D. Performed By: #### A CT #### [address] Activated Clotting Time POC 163 s High 90-139 [facility] Comment on above: Result Comment: Refe rence Range: 90-139 (Non-heparinized) PERFORMED BY: [place] [address] PATHOLOGIST SUPPLY CHAIN ANALYST YOCASTA BYRNE M.D. Performed By: #### A CT #### [address] Automated basophil %Ordered By: Nakul Nazario on 04-12-2023 Basophils/100 WBC (Bld) 0.8 % Normal . [facility] Comment on above: Performed By: #### C BC #### [address] Automated basophil countOrde red By: Nakul Nazario on 04-12-2023 Basophils (Bld) [#/Vol] 0.0 10*3/uL Normal 0.0-0.2 [facility] Comment on above: Result Comment: PERF ORMED BY: [place] [address] PATHOLOGIST SUPPLY CHAIN ANALYST YOCASTA BYRNE M.D. Performed By: #### C BC #### [address] Automated blood monocyte cou ntOrdered By: Nakul Nazario on 04-12-2023 Monocytes (Bld) [#/Vol] 0.4 10*3/uL Normal 0.0-0.8 [facility] Comment on above: Performed By: #### C BC #### [address] Automated eosinophil %Ordere d By: Nakul Nazario on 04-12-2023 Eosinophils/100 WBC (Bld) 6.8 % Normal . [facility] Comment on above: Performed By: #### C BC #### [address] Automated eosinophil countOr dered By: Nakul Nazario on 04-12-2023 Eosinophils (Bld) [#/Vol] 0.4 10*3/uL Normal 0.0-0.45 [facility] Comment on above: Performed By: #### C BC #### [address] Automated monocyte %Ordered By: Nakul Nazario on 04-12-2023 Monocytes/100 WBC (Bld) 7.8 % Normal . [facility] Comment on above: Performed By: #### C BC #### [address] Automated neutrophil %Ordere d By: Nakul Nazario on 04-12-2023 Neutrophils/100 WBC (Bld) 58.7 % Normal . [facility] Comment on above: Performed By: #### C BC #### [address] Basic Metabolic Panelon 030 Creatinine Clr Calc Pharmacy 51.50 Normal [facility] Comment on above: Result Comment: PERF ORMED BY: [place] [address] PATHOLOGIST SUPPLY CHAIN ANALYST YOCASTA BYRNE M.D. Performed By: #### B MP #### [address] GFR/1.73 sq M.predicted MDRD (S/P/Bld) [Vol rate/Area] mL/min/{1.73_m2} Normal [facility] Comment on above: Performed By: #### B MP #### [address] Blood activated clotting johann e by coagulation assayOrdered By: Denver Juarez on 04-12-2023 ACT Coag (Bld) 298 s 90-139 [facility] Comment on above: Reference Range: 90- 139 (Non-heparinized) Calcium [Mass/volume] in Ser um or PlasmaOrdered By: Nakul Nazario on 04-12-2023 Calcium [Mass/Vol] 9.3 mg/dL Normal 8.6-10.3 [facility] Comment on above: Performed By: #### B MP #### [address] Carbon dioxide, total [Moles /volume] in Serum or PlasmaOrdered By: Nakul Nazario on 04-12-2023 CO2 [Moles/Vol] 29.4 mmol/L Normal 21.0-31.0 [facility] Comment on above: Performed By: #### B MP #### [address] Chloride [Moles/volume] in S yolanda or PlasmaOrdered By: Nakul Nazario on 04-12-2023 Chloride [Moles/Vol] 110 mmol/L High 98-107 [facility] Comment on above: Performed By: #### B MP #### [address] Complete Blood Count Auto Di ffon 04-12-2023 Mean Corpuscular HGB Conc 34.3 g/dL Normal 32.0-35.0 [facility] Comment on above: Performed By: #### C BC #### [address] NRBC% 0.2 /100{WBC} Normal 0-0.5 [facility] Comment on above: Performed By: #### C BC #### [address] Creatinine [Mass/volume] in Serum or PlasmaOrdered By: Nakul Nazario on 04-12-2023 Creatinine [Mass/Vol] 0.81 mg/dL Normal 0.60-1.20 [facility] Comment on above: Performed By: #### B MP #### [address] ECG 12 lead ECGon 04-12-2023 ECG 12 lead ECG [facility] [place] [address] [place] [address] Electrocardiograph Report Signed Patient: Ozzie Gifford MR#: [id number] : 1950 Acct:[id number] Age/Sex: 72 / F ADM Date: 04/12/23 Loc: Room: [address] [place] [address] Type: DIS IN Attending Dr: Denver Juarez MD Ordering Provider: Nakul Nazario DO Date of Service: 04/12/2303/06/825 ECG/ECG 12 lead [...] no longer present. Confirmed by Re Douglas ([id number]) on 04/13/2023 7:03:50 PM Referred By: Electronically Signed By:Re Douglas Transcribed By: MUS Signed By Re Douglas MD 4 1903 Normal [facility] Erythrocyte distribution wid th [Ratio] by Automated countOrdered By: Nakul Nazario on 04-12-2023 Erythrocyte distribution width (RBC) [Ratio] 13.7 % Normal 11.9-15.3 [facility] Comment on above: Performed By: #### C BC #### [address] Erythrocytes [#/volume] in B lood by Automated countOrdered By: Nakul Nazario on 04-12-2023 RBC (Bld) [#/Vol] 5.12 10*6/uL High 3.60-5.00 [facility] Comment on above: Performed By: #### C BC #### [place] [address] [place] Glucose [Mass/volume] in Ser um or PlasmaOrdered By: Nakul Nazario on 04-12-2023 Glucose [Mass/Vol] 77 mg/dL Normal 70-100 [facility] Comment on above: ADA recommended refe rence rangeRandom Glucose Reference Range is dependent on time and content of last meal. Glucose of more than 200 mg/dL in a nonstressed, ambulatory subject supports the diagnosis of Diabetes Mellitus. Result Comment: [place] om Glucose Reference Range is dependent on time and content of last meal. Glucose of more than 200 mg/dL in a nonstressed, ambulatory subject supports the diagnosis of Diabetes Mellitus. ADA recommended reference range Performed By: #### B MP #### [place] [address] [place] Hematocrit [Volume Fraction] of Blood by Automated countOrdered By: Nakul Nazario on 04-12-2023 Hematocrit (Bld) [Volume fraction] 44.3 % Normal 34.0-46.4 [facility] Comment on above: Performed By: #### C BC #### [address] Hemoglobin [Mass/volume] in BloodOrdered By: Nakul Nazario on 04-12-2023 Hemoglobin (Bld) [Mass/Vol] 15.2 g/dL Normal 11.8-15.4 [facility] Comment on above: Performed By: #### C BC #### [address] Leukocytes [#/volume] correc henry for nucleated erythrocytes in Blood by Automated counOrdered By: Nakul Nazario on 04-12-2023 WBC corrected for nucl RBC Auto (Bld) [#/Vol] 5.5 10*3/uL 3.8-11.6 [facility] Leukocytes [#/volume] in Blo od by Automated countOrdered By: Nakul Nazario on 04-12-2023 WBC (Bld) [#/Vol] 5.5 10*3/uL Normal 3.8-11.6 [facility] Comment on above: Performed By: #### C BC #### [address] Lymphocytes [#/volume] in Bl ood by Automated countOrdered By: Nakul Nazario on 04-12-2023 Lymphocytes (Bld) [#/Vol] 1.4 10*3/uL Normal 1.00-4.8 [facility] Comment on above: Performed By: #### C BC #### [place] [address] [place] Lymphocytes/100 leukocytes i n Blood by Automated countOrdered By: Nakul Nazario on 04-12-2023 Lymphocytes/100 WBC (Bld) 25.9 % Normal . [facility] Comment on above: Performed By: #### C BC #### [place] [address] [place] MCH [Entitic mass] by Automa henry countOrdered By: Nakul Nazario on 04-12-2023 MCH (RBC) [Entitic mass] 29.6 pg Normal 24.7-34.3 [facility] Comment on above: Performed By: #### C BC #### [address] MCHC Auto (RBC) [Mass/Vol]Or dered By: Nakul Nazario on 04-12-2023 MCHC (RBC) [Mass/Vol] 34.3 g/dL 32.0-35.0 [facility] MCV [Entitic volume] by Auto mated countOrdered By: Nakul Nazario on 04-12-2023 MCV (RBC) [Entitic vol] 86.4 fL Normal 80-100 [facility] Comment on above: Performed By: #### C BC #### [address] Neutrophils [#/volume] in Bl ood by Automated countOrdered By: Nakul Nazario on 04-12-2023 Neutrophils (Bld) [#/Vol] 3.2 10*3/uL Normal 1.8-7.7 [facility] Comment on above: Performed By: #### C BC #### [facility] [address] [place] [address] No Panel InformationOrdered By: Nakul Nazario on 04-12-2023 Estimated GFR (CKD-EPI) > 60.0 mL/Min [facility] Creatinine Clearance (Chem 51.50 [facility] Nucleated erythrocytes [Pres ence] in Blood by Automated countOrdered By: Nakul Nazario on 04-12-2023 Nucleated RBC Auto Ql (Bld) 0.2 /100{WBC} 0-0.5 [facility] Platelet mean volume [Entiti c volume] in Blood by Automated countOrdered By: Nakul Nazario on 04-12-2023 Platelet mean volume (Bld) [Entitic vol] 7.8 fL Normal 6.3-10.7 [facility] Comment on above: Performed By: #### C BC #### [facility] [address] [place] [address] [place] Platelets [#/volume] in Bloo d by Automated countOrdered By: Nakul Nazario on 04-12-2023 Platelets (Bld) [#/Vol] 185 10*3/uL Normal 150-450 [facility] Comment on above: Performed By: #### C BC #### [address] Potassium [Moles/volume] in Serum or PlasmaOrdered By: Nakul Nazario on 04-12-2023 Potassium [Moles/Vol] 3.2 mmol/L Low 3.5-5.1 [facility] Comment on above: Performed By: #### B MP #### [address] Serum or plasma anion gap de terminationOrdered By: Nakul Nazario on 04-12-2023 Anion gap [Moles/Vol] 9.8 mmol/L Normal 6.0-15.0 [facility] Comment on above: Performed By: #### B MP #### [address] Sodium [Moles/volume] in Ser um or PlasmaOrdered By: Nakul Nazario on 04-12-2023 Sodium [Moles/Vol] 146 mmol/L High 136-145 [facility] Comment on above: Performed By: #### B MP #### [address] Urea nitrogen [Mass/volume] in Serum or PlasmaOrdered By: Nakul Nazario on 04-12-2023 Urea nitrogen [Mass/Vol] 16 mg/dL Normal 7-25 [facility] Comment on above: Performed By: #### B MP #### [address] US carotid doppler BIon 03-15 US carotid doppler BI [facility] [place] [address] [place] [address] Ultrasound Report Signed Patient: Ozzie Gifford MR#: [id number] : 1950 Acct:[id number] Age/Sex: 72 / F ADM Date: 04/09/23 Loc: [facility] Room: Type: [facility] Attending Dr: Denver Juarez MD Ordering Provider: [...] Husam Pierce M.D.04/09/2023 10:42 AM Dictation Location: [place] [address] Tech: Judy Dobbins Transcribed By: SHYANN 04/09/23 104 Dictated By: Husam Pierce MD 04/09/23 104 Signed By: 04/09/23 104 Normal [facility] Formson 03-08-2023 Forms [id number] .00TIFF Normal [facility] Physician Referralon 024 Physician Referral [id number] 1.00TIFF Normal [facility] Ambulatory Visit Summaryon 0 03-07-2023 Ambulatory Visit Summary HAYDEE WALKERLuna Pino :1950 Visit Date:03/07/2023 Ambulatory Visit Instructions Your Diagnosis Incontinence Stroke Your Care Team Attending Physician - MITRA Quintero APRN, Carmen Rm Primary Care Physician - SHAIKH DAY MD Referring Physician - SHAIKH DAY MD This Is Your Medications List [facility] [place] (BACLOFEN 20MG TAB) amlodipine (amLODIPine 2.5 mg Tab) aspirin (aspirin 81 mg Chew Tab) clonazepam (ClonazePAM 0.5 mg Tab) ferrous sulfate (FeroSul 325 mg oral tablet) furosemide (furosemide 40 mg Tab) metoprolol (metoprolol 25 mg ER Tab) potassium chloride (Potassium Chloride (Fln-Bhtc-Asa M10) 10 mEq oral tablet, extended release) [...] TAB) 0 Unchanged potassium chloride (Potassium Chloride (Fyn-Rixa-Aap M10) 10 mEq oral tablet, extended release) [...] you for choosing us for your care. [facility] Patient Educationon 03-07-19 Patient Education Urology Urinary Incontinence Urinary incontinence [...] stimulation). ? For women, using a medical chief technician to prevent urine leaks. This is a [...] urine. ? (more content not included)... 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 Pt states she walked here from [place] in the rain. Genitourinary: Flank Pain: none. [...] 60 mg ER QD. Rx sent to [facility]. -f/u 6-8 weeks for med recheck and PVR. Ordered: trospium, 60 mg = 1 cap(s), Oral, qAM, X 90 day(s), # 90 cap(s), Refills(s) 0, Pharmacy: [id number], 160, cm, 03/07/23 10:58:00 EST, Height/Length Dosing, 60, kg, 03/07/23 10:58:00 EST, Weight Dosing 2. UTI (urinary tract infection) (N39.0: Urinary tract infection, site not specified) recently dx by PCP [facility] 02/23/23 - 100 k E. coli, treated w/ macrobid. 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 CT brain w/o con 03/01/23 - stable atrophy and white matter disease Pt not able to answer questions directly in visit today. States she walked to [employer] office from [place]. Poor historian. Orders: [id number] Measure Post Void residual urine and/or bladder capacity by US- non-imaging Urnls Dip Stick Auto w/o Microscopy POC 09281 Follow-up With When Contact Information [employer], GREASE CUP FILLER-C, Carmen X, FAM, URL In 8 weeks Additional Instructions: [...] mg ER Tab, Oral, Daily Potassium Chloride (Evg-Ktee-Qzt M10) 10 mEq oral tablet, extended release [...] Urine Di (more content not included)... Normal [facility] Comment on above: Result Comment: Elec tronically Signed By: MITRA Quintero APRN, Carmen Rm\.br\Date and Time Signed: 03/07/23 14:30 EST Urinalysis - AUTOMATEDon Appearance (U) cloudy [employer] Other Bilirubin Ql (U) Negative [employer] ast [employer] Other Color (U) yellow [employer] Other Glucose Ql (U) Negative [employer] Other Hemoglobin Ql (U) Negative [employer] Other Ketones Ql (U) Negative [employer] Other Leukocyte esterase Test strip Ql (U) Negative [employer] Other Nitrite Ql (U) Negative [employer] Other pH (U) 6.0 [pH] [employer] Other Protein Ql (U) Negative [employer] Other Specific gravity (U) [Rel density] 1.030 [employer] Other Urobilinogen (U) [Mass/Vol] 1.0 mg/dL [employer] Other Urinalysis - AUTOMATED No [employer] Other ECHOCARDIO M/2D COMPLETEon 0 02-21-2022 ECHOCARDIO M/2D COMPLETE Patient: OZZIE GIFFORD Exam Date: 02/21/2022 : 1950 Gender:F Ordering : DIANA FONSECA Admission #: [id number] Family : DE OLIVEIRAJACQUELINE DAY . Order #: [id number] CLICK HERE TO VIEW EXAM ECHOCARDIOGRAM REPORT [...] Doty M.D. on 02/22/2022 at 13:00 Normal [facility] VC COMP CONSULTATIONon 02-20 VC COMP CONSULTATION Patient: BALTAOZZIE Exam Date: 02/20/2022 : 1950 Gender:F Ordering : SHAIKH Korina DAY . Admission #: [id number] Family : Order #: [id number] CLICK HERE TO VIEW EXAM RADIOLOGY REPORT [...] her congestive heart disease up with her physical therapy attendant in the next 2 weeks. The patient [...] MD on 02/20/2022 at 11:[address] [facility] VC VENOUS REFLUX IAN LMTon 0 02-20-2022 VC VENOUS REFLUX IAN LMT Patient: OZZIE GIFFORD Exam Date: 02/20/2022 : 1950 Gender:F Ordering : SHAIKH Korina DAY . Admission #: [id number] Family : DR NATACHA WALSH M.D. Order #: [id number] CLICK HERE TO VIEW EXAM RADIOLOGY REPORT [...] chronic thrombus visualized Compressibility: Normal Flow: Normal Personal Clothing Laundry Aide: Dist/med calf 2.5mm with 0s reflux. Mid/med [...] Walsh MD on 02/20/2022 at 10:30 Normal [facility] US JANETTE DOP LEG LTon 02-01-20 [...] by: INDRA LOZADA Date: 2022-01-31 18:39 Normal [facility] BNPon 01-22-2022 Natriuretic peptide B (Bld) [Mass/Vol] 552.0 pg/mL Normal <=900.0 [facility] Comment on above: Performed By: #### E RUR #### [facility] [address] [place] [address] Dr. Grzegorz Wang CBC AUTO DIFFon 01-22-2022 BASO # 0.1 103/ul Normal 0.0-0.1 [facility] Comment on above: Performed By: #### C BC #### [facility] [address] [place] [address] Dr. Grzegorz Wang Basophils/100 WBC (Bld) 0.9 % Normal 0.2-2.0 [facility] Comment on above: Performed By: #### C BC #### [facility] [address] [place] [address] Dr. Grzegorz Wang EO # 0.3 103/ul Normal 0.0-0.7 [facility] Comment on above: Performed By: #### C BC #### [facility] [address] [place] [address] Dr. Grzegorz Wang Eosinophils/100 WBC (Bld) 5.5 % Normal 0.9-7.0 [facility] Comment on above: Performed By: #### C BC #### [facility] [address] [place] [address] Dr. Grzegorz Wang Erythrocyte distribution width (RBC) [Ratio] 13.7 % Normal 11.0-15.0 [facility] Comment on above: Performed By: #### C BC #### [facility] [address] [place] [address] Dr. Grzegorz Wang Hematocrit (Bld) [Volume fraction] 41.1 % Normal 36.0-48.0 [facility] Comment on above: Performed By: #### C BC #### [facility] [address] [place] [address] Dr. Grzegorz Wang Hemoglobin (Bld) [Mass/Vol] 13.4 g/dL Normal 12.0-16.0 [facility] Comment on above: Performed By: #### C BC #### [facility] [address] [place] [address] Dr. Grzegorz Wang IG # 0.01 10e3/ul Normal 0.00-0.03 [facility] Comment on above: Performed By: #### C BC #### [facility] [address] [place] [address] Dr. Grzegorz Wagn IG % 0.2 % Normal 0.0-0.5 [facility] Comment on above: Performed By: #### C BC #### [facility] [address] [place] [address] Dr. Grzegorz Wang LYMPH # 1.8 103/ul Normal 1.2-3.8 [facility] Comment on above: Performed By: #### C BC #### [facility] [address] [place] [address] Dr. Grzegorz Wang Lymphocytes/100 WBC (Bld) 29.9 % Normal 20.5-60.0 [facility] Comment on above: Performed By: #### C BC #### [facility] [address] [place] [address] Dr. Grzegorz Wang MANUAL DIFF REQ NO Normal [facility] Comment on above: Performed By: #### C BC #### [facility] [address] [place] [address] Dr. Grzegorz Wang MCH (RBC) [Entitic mass] 28.2 pg Normal 26.7-34.0 [facility] Comment on above: Performed By: #### C BC #### [facility] [address] [place] [address] Dr. Grzegorz Wang MCHC (RBC) [Mass/Vol] 32.6 g/dL Normal 29.9-35.2 [facility] Comment on above: Performed By: #### C BC #### [facility] [address] [place] [address] Dr. Grzegorz Wang MCV (RBC) [Entitic vol] 86.5 fL Normal 81.0-99.0 [facility] Comment on above: Performed By: #### C BC #### [facility] [address] [place] [address] Dr. Grzegorz Wang MONO # 0.7 103/ul Normal 0.3-0.8 [facility] Comment on above: Performed By: #### C BC #### [facility] [address] [place] [address] Dr. Grzegorz Wang Monocytes/100 WBC (Bld) 11.1 % Normal 1.7-12.0 [facility] Comment on above: Performed By: #### C BC #### [facility] [address] [place] [address] Dr. Grzegorz Wang NEUT # 3.1 103/ul Normal 1.4-6.5 [facility] Comment on above: Performed By: #### C BC #### [facility] [address] [place] [address] Dr. Grzegorz Wang Neutrophils/100 WBC (Bld) 52.4 % Normal 43.0-75.0 [facility] Comment on above: Performed By: #### C BC #### [facility] [address] [place] [address] Dr. Grzegorz Wang Platelet mean volume (Bld) [Entitic vol] 9.6 fL Normal 9.5-13.5 [facility] Comment on above: Performed By: #### C BC #### [facility] [address] [place] [address] Dr. Grzegorz Wang PLT 162 103/ul Normal 150-450 [facility] Comment on above: Performed By: #### C BC #### [facility] [address] [place] [address] Dr. Grzegorz Wang RBC 4.75 106/ul Normal 4.20-5.40 [facility] Comment on above: Performed By: #### C BC #### [facility] [address] [place] [address] Dr. Grzegorz Wang WBC 5.9 103/ul Normal 4.0-11.0 [facility] Comment on above: Performed By: #### C BC #### [facility] [address] [place] [address] Dr. Grzegorz Wang PROF 14(COMP METB)on 022 Albumin [Mass/Vol] 3.4 g/dL Normal 3.4-5.0 [facility] Comment on above: Performed By: #### E RUR #### [facility] [address] [place] [address] Dr. Grzegorz Wang Albumin/Globulin [Mass ratio] 1.0 {ratio} Normal [facility] Comment on above: Performed By: #### E RUR #### [facility] [address] [place] [address] Dr. Grzegorz Wang ALP [Catalytic activity/Vol] 102 U/L Normal 46-116 [facility] Comment on above: Performed By: #### E RUR #### [facility] [address] [place] [address] Dr. Grzegorz Wang ALT [Catalytic activity/Vol] 16 U/L Normal 14-59 [facility] Comment on above: Performed By: #### E RUR #### [facility] [address] [place] [address] Dr. Grzegorz Wang Anion gap [Moles/Vol] 10.6 mmol/L Normal [facility] Comment on above: Performed By: #### E RUR #### [facility] [address] [place] [address] Dr. Grzegorz Wang AST [Catalytic activity/Vol] 18 U/L Normal 15-37 [facility] Comment on above: Performed By: #### E RUR #### [facility] [address] [place] [address] Dr. Grzegorz Wang Bilirubin [Mass/Vol] 0.4 mg/dL Normal 0.2-1.0 [facility] Comment on above: Performed By: #### E RUR #### [facility] [address] [place] [address] Dr. Grzegorz Wang Calcium [Mass/Vol] 9.0 mg/dL Normal 8.5-10.1 [facility] Comment on above: Performed By: #### E RUR #### [facility] [address] [place] [address] Dr. Grzegorz Wang Chloride [Moles/Vol] 103 mmol/L Normal 98-107 [facility] Comment on above: Performed By: #### E RUR #### [facility] [address] [place] [address] Dr. Grzegorz Wang CO2 [Moles/Vol] 31.4 mmol/L Normal 21.0-32.0 [facility] Comment on above: Performed By: #### E RUR #### [facility] [address] [place] [address] Dr. Grzegorz Wang Creatinine [Mass/Vol] 0.80 mg/dL Normal 0.55-1.02 [facility] Comment on above: Performed By: #### E RUR #### [facility] [address] [place] [address] [address] Grzegorz Wang EGFR-AF [place]LANDER >60 Normal >=60 [facility] Comment on above: Performed By: #### E RUR #### [facility] [address] [place] [address] Dr. Grzegorz Wang EGFR-NON AF [place] >60 Normal >=60 [facility] Comment on above: Performed By: #### E RUR #### [facility] [address] [place] [address] Dr. Grzegorz Wang Globulin (S) [Mass/Vol] 3.4 g/dL Normal [facility] Comment on above: Performed By: #### E RUR #### [facility] [address] [place] [address] Dr. Grzegorz Wang Glucose [Mass/Vol] 78 mg/dL Normal 74-106 [facility] Comment on above: Performed By: #### E RUR #### [facility] [address] [place] [address] Dr. Grzegorz Wang Potassium [Moles/Vol] 3.0 mmol/L Critically low 3.5-5.1 [facility] Comment on above: Performed By: #### E RUR #### [facility] [address] [place] [address] Dr. Grzegorz aWng Protein [Mass/Vol] 6.8 g/dL Normal 6.4-8.2 [facility] Comment on above: Performed By: #### E RUR #### [facility] [address] [place] [address] Dr. Grzegorz Wang Sodium [Moles/Vol] 142 mmol/L Normal 136-145 [facility] Comment on above: Performed By: #### E RUR #### [facility] [address] [place], [place] [address] Dr. Grzegorz Wang Urea nitrogen [Mass/Vol] 14.0 mg/dL Normal 7.0-18.0 [facility] Comment on above: Performed By: #### E RUR #### [facility] [address] [place], [place] [address] Dr. Grzegorz Wang Urea nitrogen/Creatinine [Mass ratio] 17.5 mg/mg Normal [facility] Comment on above: Performed By: #### E RUR #### [facility] [address] [place], [place] [address] Dr. Grzegorz Wang US JANETTE DOP LEG [...] by: MIRI BALTAZAR Date: 2022-01-22 16:38 Normal [facility] LIPID PROFILEon 01-18-2022 CHOL-HDL RATIO NORM SEE BELOW Normal [facility] Comment on above: Result Comment: 3.3 - 4.4 LOW RISK 4.4 - 7.1 AVERAGE RISK 7.1 - 11.0 MODERATE RISK >11.0 HIGH RISK Performed By: #### A LUCHO OWENA #### [facility] [address] [place], [place] [address] Dr. Grzegorz Wang Cholesterol [Mass/Vol] 125 mg/dL Normal <=200 Th [facility] Comment on above: Performed By: #### A BRAYDEN LIPA #### [facility] [address] [place], [place] [address] Dr. Grzegorz Wang Cholesterol in HDL [Mass/Vol] 69 mg/dL Critically high 40-60 [facility] Comment on above: Performed By: #### A BRAYDEN, LIPA #### [facility] [address] [place] [address] [address] Grzegorz Wang Cholesterol in LDL [Mass/Vol] 40.0 mg/dL Normal [facility] Comment on above: Performed By: #### A MY, LIPA #### [facility] [address] [place] [address] [address] Grzegorz Wang Cholesterol.total/Claudia sterol in HDL [Mass ratio] 1.8 {ratio} Normal [facility] Comment on above: Performed By: #### A BRAYDEN, LIPA #### [facility] [address] [place] [address] [address] Grzegorz Wang HDL NORMAL > or = 60 mg/dl - LO W CARDIOVASCULAR RISK <40 mg/dl - HIGH CARDIOVASCULAR RISK Normal [facility] Comment on above: Performed By: #### A BRAYDEN LIPA #### [facility] [address] [place] [address] Dr. Grzegorz Wang LDL CALC NORMAL SEE BELOW Normal [facility] Comment on above: Result Comment: <100 mg/dl OPTIMAL 100 - 129 mg/dl NEAR OR ABOVE OPTIMAL 130 - 159 mg/dl BORDERLINE HIGH 160 - 189 mg/dl HIGH >190 mg/dl VERY HIGH Performed By: #### A BRAYDEN LIPA #### [facility] [address] [place] [address] [address] Grzegorz Wang Triglyceride [Mass/Vol] 80 mg/dL Normal <=150 T [place] [facility] Comment on above: Performed By: #### A BRAYDEN LIPA #### [facility] [address] [place] [address] Dr. Grzegorz Wang VLDL CALC 16.0 mg/dL Normal [facility] Comment on above: Performed By: #### A BRAYDEN LIPA #### [facility] [address] [place] [address] Dr. Grzegorz Wang US PELVISon 01-18-2022 US [...] by: MITZI CHAU Date: 2022-01-18 10:31 Normal [facility] XR CHEST 2 Von 01-03-2022 [...] by: MITZI CHAU Date: 2022-01-03 10:48 Normal [facility] US PELVISon 12-07-2021 US PELVIS [...] by: MITZI CHAU Date: 2021-12-07 17:20 Normal [facility] PROF CHEM 8 (BAS METB)on Anion gap [Moles/Vol] 13.0 mmol/L Normal [facility] Comment on above: Performed By: #### A MY LIPA #### [facility] [address] [place] [address] Dr. Grzegorz Wang Calcium [Mass/Vol] 8.9 mg/dL Normal 8.5-10.1 [facility] Comment on above: Performed By: #### A MY LIPA #### [facility] [address] [place] [address] Dr. Grzegorz Wang Chloride [Moles/Vol] 105 mmol/L Normal 98-[address] [facility] Comment on above: Performed By: #### A BRAYDEN LIPA #### [facility] [address] [place] [address] Dr. Grzegorz Wang CO2 [Moles/Vol] 29.0 mmol/L Normal 21.0-32.0 [facility] Comment on above: Performed By: #### A BRAYDEN LIPA #### [facility] [address] [place] [address] Dr. Grzegorz Wang Creatinine [Mass/Vol] 0.79 mg/dL Normal 0.55-1.02 [facility] Comment on above: Performed By: #### A BRAYDEN LIPA #### [facility] [address] [place] [address] Dr. Grzegorz Wang EGFR-AF [place]ER >60 Normal >=60 [facility] Comment on above: Performed By: #### A BRAYDEN LIPA #### [facility] [address] [place] [address] Dr. Grzegorz Wang EGFR-NON AF [place]ER >60 Normal >=[address] [facility] Comment on above: Performed By: #### A MY LIPA #### [facility] [address] [place] [address] Dr. Grzegorz Wang Glucose [Mass/Vol] 79 mg/dL Normal 74-106 [facility] Comment on above: Performed By: #### A BRAYDEN LIPA #### [facility] [address] [place] [address] Dr. Grzegorz Wang Potassium [Moles/Vol] 3.0 mmol/L Critically low 3.5-5.1 [facility] Comment on above: Performed By: #### A BRAYDEN LIPA #### [facility] [address] [place] [address] Dr. Grzegorz Wang Sodium [Moles/Vol] 144 mmol/L Normal 136-145 [facility] Comment on above: Performed By: #### A BRAYDEN LIPA #### [facility] [address] [place] [address] Dr. Grzegorz Wang Urea nitrogen [Mass/Vol] 12.0 mg/dL Normal 7.0-18.0 [facility] Comment on above: Performed By: #### A BRAYDEN LIPA #### [facility] [address] [place] [address] Dr. Grzegorz Wang Urea nitrogen/Creatinine [Mass ratio] 15.2 mg/mg Normal [facility] Comment on above: Performed By: #### A BRAYDEN LIPA #### [facility] [address] [place] [address] Dr. Grzegorz Wang VITAMIN B12on 11-27-2021 Cobalamin (Vitamin B12) [Mass/Vol] 5661.0 pg/mL Critically high 193.0-986.0 [facility] Comment on above: Performed By: #### E RUR #### [facility] [address] [place] [address] Dr. Grzegorz Wang BNPon 11-26-2021 Natriuretic peptide B (Bld) [Mass/Vol] 1245.0 pg/mL Critically high <=900.0 [facility] Comment on above: Performed By: #### A BRAYDEN LIPA #### [facility] [address] [place] [address] Dr. Grzegorz Wang Bacterial blood cultureOrder ed By: Ashleigh Rashid on 11-26-2021 Bacteria identified Cx Nom (Bld) NO GROWTH 5 DAYS [facility] CARDIAC BAMBI ADMITon 022 CK [Catalytic activity/Vol] 75 U/L Normal 26-192 [facility] Comment on above: Performed By: #### A MY, LIPA #### [facility] [address] [address] [address] Grzegorz Wang CK.MB [Mass/Vol] 1.58 ng/mL Normal <=3.60 [facility] Comment on above: Performed By: #### A MY, LIPA #### [facility] [address] [address] [address] Grzegorz Wang HSTROP 13.3 pg/mL Normal 4.0-51.3 [facility] Comment on above: Result Comment: CUT- OFF POINTS HAVE BEEN ESTABLISHED BASED ON THE FOURTH UNIVERSAL DEFINITIONS OF MYOCARDIAL INFARCTION. THE UPPER REFERENCE LIMIT (URL) OF TROPONIN, DEFINED THE 99TH PERCENTILE OF cTnI DISTRIBUTION IN A REFERENCE POPULATION, HAS BEEN CONFIRMED THE DECISION THRESHOLD FOR [place] DIAGNOSIS. Performed By: #### A MY, LIPA #### [facility] [address] [address] [address] Grzegorz Wang MITZI 85 ng/mL Critically high 9-82 [facility] Comment on above: Performed By: #### A MY, LIPA #### [facility] [address] [address] [address] Grzegorz Wang CBC AUTO DIFFon 11-26-2021 BASO # 0.0 103/ul Normal 0.0-0.1 [facility] Comment on above: Performed By: #### A MY, LIPA #### [facility] [address] [address] [address] Grzegorz Wang Basophils/100 WBC (Bld) 0.5 % Normal 0.2-2.0 [facility] Comment on above: Performed By: #### A MY, LIPA #### [facility] [address] [address] [address] Grzegorz Wang EO # 0.1 103/ul Normal 0.0-0.7 [facility] Comment on above: Performed By: #### A MY, LIPA #### [facility] [address] [address] [address] Grzegorz Wang Eosinophils/100 WBC (Bld) 1.3 % Normal 0.9-7.0 [facility] Comment on above: Performed By: #### A BRAYDEN LIPA #### [facility] [address] [place] [address] Dr. Grzegorz Wang Erythrocyte distribution width (RBC) [Ratio] 16.8 % Critically high 11.0-15.0 [facility] Comment on above: Performed By: #### A BRAYDEN LIPA #### [facility] [address] [place] [address] Dr. Grzegorz Wang Hematocrit (Bld) [Volume fraction] 36.6 % Normal 36.0-48.0 [facility] Comment on above: Performed By: #### A BRAYDEN LIPA #### [facility] [address] [place] [address] Dr. Grzegorz Wang Hemoglobin (Bld) [Mass/Vol] 12.1 g/dL Normal 12.0-16.0 [facility] Comment on above: Performed By: #### A BRAYDEN LIPA #### [facility] [address] [place] [address] Dr. Grzegorz Wang IG # 0.03 10e3/ul Normal 0.00-0.03 [facility] Comment on above: Performed By: #### A BRAYDEN LIPA #### [facility] [address] [place] [address] Dr. Grzegorz Wang IG % 0.5 % Normal 0.0-0.5 [facility] Comment on above: Performed By: #### A BRAYDEN LIPA #### [facility] [address] [place] [address] Dr. Grzegorz Wang LYMPH # 0.9 103/ul Critically low 1.2-3.8 [facility] Comment on above: Performed By: #### A BRAYDEN LIPA #### [facility] [address] [place] [address] Dr. Grzegorz Wang Lymphocytes/100 WBC (Bld) 15.4 % Critically low 20.5-60.0 [facility] Comment on above: Performed By: #### A BRAYDEN LIPA #### [facility] [address] [place] [address] Dr. Grzegorz Wang MANUAL DIFF REQ NO Normal [facility] Comment on above: Performed By: #### A BRAYDEN LIPA #### [facility] [address] [place] [address] Dr. Grzegorz Wang MCH (RBC) [Entitic mass] 27.7 pg Normal 26.7-34.0 [facility] Comment on above: Performed By: #### A BRAYDEN LIPA #### [facility] [address] [place] [address] Dr. Grzegorz Wang MCHC (RBC) [Mass/Vol] 33.1 g/dL Normal 29.9-35.2 [facility] Comment on above: Performed By: #### A BRAYDEN LIPA #### [facility] [address] [place] [address] Dr. Grzegorz Wang MCV (RBC) [Entitic vol] 83.8 fL Normal 81.0-99.0 [facility] Comment on above: Performed By: #### A BRAYDEN LIPA #### [facility] [address] [place] [address] Dr. Grzegorz Wang MONO # 0.5 103/ul Normal 0.3-0.8 [facility] Comment on above: Performed By: #### A BRAYDEN LIPA #### [facility] [address] [place] [address] Dr. Grzegorz Wang Monocytes/100 WBC (Bld) 7.8 % Normal 1.7-12.0 [facility] Comment on above: Performed By: #### A BRAYDEN LIPA #### [facility] [address] [place] [address] Dr. Grzegorz Wang NEUT # 4.5 103/ul Normal 1.4-6.5 [facility] Comment on above: Performed By: #### A BRAYDEN LIPA #### [facility] [address] [place] [address] Dr. Grzegorz Wang Neutrophils/100 WBC (Bld) 74.5 % Normal 43.0-75.0 [facility] Comment on above: Performed By: #### A MY, LIPA #### [facility] [address] [address] [address] Grzegorz Wang Platelet mean volume (Bld) [Entitic vol] 11.2 fL Normal 9.5-13.5 [facility] Comment on above: Performed By: #### A MY, LIPA #### [facility] [address] [address] [address] Grzegorz Wang PLT 187 103/ul Normal 150-[address] [facility] Comment on above: Performed By: #### A BRAYDEN, LIPA #### [facility] [address] [address] [address] Grzegorz Wang RBC 4.37 106/ul Normal 4.20-5.40 [facility] Comment on above: Performed By: #### A BRAYDEN, LIPA #### [facility] [address] [address] [address] Grzegorz Wang WBC 6.0 103/ul Normal 4.0-11.[address] [facility] Comment on above: Performed By: #### A BRAYDEN, LIPA #### [facility] [address] [address] [address] ABD/PELVIS WO CONon [...] by: MANDI MANRIQUEZ Date: 2021-11-26 15:08 Normal [facility] CT CSPINE WO CONon 2 CT [...] SHANIA WASHINGTON Date: 2021-11-26 14:[address] [facility] ER URINE PROFILEon 2 Bilirubin Ql (U) Negative Normal NEGATIVE [facility] Comment on above: Performed By: #### C BC #### [facility] [address] [place] [address] Dr. Grzegorz Wang Clarity (U) CLEAR Normal CLEAR [facility] Comment on above: Performed By: #### C BC #### [facility] [address] [place] [address] Dr. Grzegorz Wang Color (U) LT. YELLOW Normal YELLOW [facility] Comment on above: Performed By: #### C BC #### [facility] [address] [place] [address] Dr. Grzegorz PÉREZ A micrscopic examination will be performed if indicated. Normal [facility] Comment on above: Performed By: #### C BC #### [facility] [address] [place] [address] Dr. Grzegorz Wang Glucose Ql (U) Negative Normal NEGATIVE [facility] Comment on above: Performed By: #### C BC #### [facility] [address] [place] [address] Dr. Grzegorz Wang Hemoglobin Ql (U) TRACE-INTACT Abnormal NEGATIVE [facility] Comment on above: Performed By: #### C BC #### [facility] [address] [place] [address] Dr. Grzegorz Wang Ketones Ql (U) Negative Normal NEGATIVE [facility] Comment on above: Performed By: #### C BC #### [facility] [address] [place] [address] Dr. Grzegorz Wang LEUKOCYTES Negative Normal NEGATIVE [facility] Comment on above: Performed By: #### C BC #### [facility] [address] [place] [address] Dr. Grzegorz Wang Nitrite Ql (U) Negative Normal NEGATIVE [facility] Comment on above: Performed By: #### C BC #### [facility] [address] [place] [address] Dr. Grzegorz Wang pH (U) 5.5 [pH] Normal 5-9 [facility] Comment on above: Performed By: #### C BC #### [facility] [address] [place] [address] Dr. Grzegorz Wang SPEC GRAVITY <=1.005 Abnormal 1.005-<=1.0 25 [facility] Comment on above: Performed By: #### C BC #### [facility] [address] [place] [address] Dr. Grzegorz Wang UA PROTEIN Negative Normal NEGATIVE/ TRACE [facility] Comment on above: Performed By: #### C BC #### [facility] [address] [place] [address] Dr. Grzegorz Wang UR MICRO IND INDICATED Normal [facility] Comment on above: Performed By: #### C BC #### [facility] [address] [place] [address] Dr. Grzegorz Wang Urobilinogen Qn (U) 0.2 {Lidya'U}/dL Normal 0.2 - 1. 0 [facility] Comment on above: Performed By: #### C BC #### [facility] [address] [place] [address] Dr. Grzegorz Wang PROF 14(COMP METB)on 022 Albumin [Mass/Vol] 3.5 g/dL Normal 3.4-5.0 [facility] Comment on above: Performed By: #### A MY LIPA #### [facility] [address] [place] [address] Dr. Grzegorz Wang Albumin/Globulin [Mass ratio] 1.1 {ratio} Normal [facility] Comment on above: Performed By: #### A MY, LIPA #### [facility] [address] [address] [address] Grzegorz Wang ALP [Catalytic activity/Vol] 89 U/L Normal 46-116 [facility] Comment on above: Performed By: #### A MY, LIPA #### [facility] [address] [address] [address] Grzegorz Wang ALT [Catalytic activity/Vol] 22 U/L Normal 14-59 [facility] Comment on above: Performed By: #### A MY, LIPA #### [facility] [address] [address] [address] Grzegorz Wang Anion gap [Moles/Vol] 10.2 mmol/L Normal [facility] Comment on above: Performed By: #### A MY, LIPA #### [facility] [address] [place] [address] Dr. Grzegorz Wang AST [Catalytic activity/Vol] 18 U/L Normal 15-37 [facility] Comment on above: Performed By: #### A BRAYDEN, LIPA #### [facility] [address] [address] [address] Grzegorz Wang Bilirubin [Mass/Vol] 0.6 mg/dL Normal 0.2-1.0 [facility] Comment on above: Performed By: #### A MY, LIPA #### [facility] [address] [address] [address] Grzegorz Wang Calcium [Mass/Vol] 9.1 mg/dL Normal 8.5-10.1 [facility] Comment on above: Performed By: #### A MY, LIPA #### [facility] [address] [address] [address] Grzegorz Wang Chloride [Moles/Vol] 106 mmol/L Normal 98-107 [facility] Comment on above: Performed By: #### A MY, LIPA #### [facility] [address] [address] [address] Grzegorz Wang CO2 [Moles/Vol] 29.5 mmol/L Normal 21.0-32.0 [facility] Comment on above: Performed By: #### A MY, LIPA #### [facility] [address] [place] [address] Dr. Grzegorz Wang Creatinine [Mass/Vol] 0.86 mg/dL Normal 0.55-1.02 [facility] Comment on above: Performed By: #### A MY, LIPA #### [facility] [address] [place] [address] Dr. Grzegorz Wang EGFR-AF [place]ER >60 Normal >=60 [facility] Comment on above: Performed By: #### A MY, LIPA #### [facility] [address] [place] [address] Dr. Grzegorz Wang EGFR-NON AF [place]ER >60 Normal >=60 [facility] Comment on above: Performed By: #### A MY, LIPA #### [facility] [address] [place] [address] Dr. Grzegorz Wang Globulin (S) [Mass/Vol] 3.1 g/dL Normal [facility] Comment on above: Performed By: #### A MY, LIPA #### [facility] [address] [place] [address] Dr. Grzegorz Wang Glucose [Mass/Vol] 98 mg/dL Normal 74-106 [facility] Comment on above: Performed By: #### A MY, LIPA #### [facility] [address] [place] [address] Dr. Grzegorz Wang Potassium [Moles/Vol] 2.7 mmol/L Critically low 3.5-5.1 [facility] Comment on above: Performed By: #### A MY, LIPA #### [facility] [address] [place] [address] Dr. Grzegorz Wang Protein [Mass/Vol] 6.6 g/dL Normal 6.4-8.2 [facility] Comment on above: Performed By: #### A MY, LIPA #### [facility] [address] [place] [address] Dr. Grzegorz Wang Sodium [Moles/Vol] 143 mmol/L Normal 136-145 [facility] Comment on above: Performed By: #### A PHIL OWEN #### [facility] [address] [place] [address] Dr. Grzegorz Wang Urea nitrogen [Mass/Vol] 12.0 mg/dL Normal 7.0-18.0 [facility] Comment on above: Performed By: #### A PHIL OWEN #### [facility] [address] [place] [address] Dr. Grzegorz Wang Urea nitrogen/Creatinine [Mass ratio] 14.0 mg/mg Normal [facility] Comment on above: Performed By: #### A PHIL OWEN #### [facility] [address] [place] [address] Dr. Grzegorz Wang PROTIMEon 11-26-2021 INR Coag (PPP) [Relative time] 1.00 {INR} Normal [facility] Comment on above: Performed By: #### C BC #### [facility] [address] [place] [address] Dr. Grzegorz Wang INR GUIDELINES SEE BELOW Normal [facility] Comment on above: Result Comment: DENTON RED INR: 2.0 - 3.0 CONDITIONS NOT LISTED BELOW 2.5 - 3.5 FOR PROSTHETIC HEART VALVE REPLACEMENT 2.5 - 3.5 RECURRENT THROMBOSIS Performed By: #### C BC #### [facility] [address] [place] [address] Dr. Grzegorz Wang PT Coag (PPP) [Time] 10.8 s Normal 9.0-11.6 [facility] Comment on above: Performed By: #### C BC #### [facility] [address] [place] [address] Dr. Grzegorz Wang PTTon 11-26-2021 aPTT Coag (Bld) [Time] 23.1 s Normal 22.3-36.2 [facility] Comment on above: Performed By: #### C BC #### [facility] [address] [place] [address] Dr. Grzegorz Wang URINE MICROSCOPIC ONLYon BACTERIA NONE SEEN Normal NONE SEEN [facility] Comment on above: Performed By: #### C BC #### [facility] [address] [place] [address] Dr. Grzegorz Wang Bacteria identified Cx Nom (U) NOT INDICATED Normal [facility] Comment on above: Performed By: #### C BC #### [facility] [address] [place] [address] Dr. Grzegorz Wang CAST NONE SEEN Normal NONE SEEN [facility] Comment on above: Performed By: #### C BC #### [facility] [address] [place] [address] Dr. Grzegorz Wang Crystals LM Nom (Urine sed) NONE SEEN Normal NONE SEEN [facility] Comment on above: Performed By: #### C BC #### [facility] [address] [place] [address] Dr. Grzegorz Wang Epithelial cells LM Ql (Urine sed) FEW Abnormal NONE SEEN /RARE [facility] Comment on above: Performed By: #### C BC #### [facility] [address] [place] [address] Dr. Grzegorz Wang MUCOUS NONE SEEN Normal NONE SEEN [facility] Comment on above: Performed By: #### C BC #### [facility] [address] [place] [address] Dr. Grzegorz Wang RBC 0-2 Normal 0-[address] [facility] Comment on above: Performed By: #### C BC #### [facility] [address] [place] [address] Dr. Grzegorz Wang WBC 0-2 Abnormal NONE SEEN [facility] Comment on above: Performed By: #### C BC #### [facility] [address] [place] [address] Dr. Grzegorz Wang XR CHEST 1 Von [...] NATACHA CERNA Date: 2021-11-26 14:[address] [facility] CT BRAIN HEAD WO CONTRASTon 11-24-2021 [...] AGUILAR MD Signed Out: 11/24/21 14:21:18 Normal [facility] ED Adult Data - Texton [...] BH conditions : No Jennifer Mccarthy RN 11/24/2021 15:25 EDT Screening-Safety Abuse/Violence Concerns? : Patient denies Does the patient have a medically restricted extremity? : Jennifer Stewart RN - 11/24/2021 15:25 EDT Problem List Problem List obtained from : Patient Jennifer Mccarthy RN 11/24/2021 15:25 EDT (As Of: 11/24/2021 15:26:01 EDT) Diagnoses(Active) Fall Date: 11/24/2021 ; Diagnosis Type: Reason For Visit ; Confirmation: Confirmed ; Clinical Dx: Fall ; Classification: Medical ; Clinical Service: Non-Specified ; Code: PNED ; Probability: 0 ; Diagnosis Code: [id number] Fall Date: 11/24/2021 ; Diagnosis Type: Reason For Visit ; Confirmation: Confirmed ; Clinical Dx: Fall ; Classification: Medical ; Clinical Service: Emergency medicine ; Code: PNED ; Probability: 0 ; Diagnosis Code: [id number] Procedure History ED Devices Present on Arrival [...] risk situation (congregated living, hemodialysis, infusion clinic, care home, assisted living, retirement, homeless care home, etc.)? : No Jennifer Mccarthy RN - 11/24/2021 15:25 EDT Normal [facility] ED Discharge Educationon ED Discharge Education Dermatology Cuts Closed With Kemi: Care Instructions Your Care Instructions A cut can happen anywhere on your body. The doctor used kemi to close the cut. [place] easily and quickly close a cut, which [...] your doctor if you can take an grke-kyr-[id number] medicine. When should you call for help? [...] Where can you learn more? Go to https://www.[employer]/patientEd Enter E525 in the search box to learn more about Cuts Closed With Kemi: Care Instructions. Current as of: April 08, 2019 Content Version: 12.7 ? [employer]. Care instructions adapted under license by your healthcare professional. If you have questions about a medical condition or this instruction, always ask your healthcare professional. [employer] disclaims any warranty or liability for your [...] she will (more content not included)... Normal [facility] ED Emergency Severity Index Adult-Texton [...] Mccarthy RN - 11/24/2021 12:33 EDT Normal [facility] ED Nrsing Adlt Triage Sep [...] Mccarthy RN - 11/24/2021 13:00 EDT Normal [facility] ED Patient Summaryon 022 ED Patient Summary [facility] Emergency Department Discharge Instructions [address] [place] [address] \.br\(Patient Copy)\.br\ \.br\Name: BALTAOZZIE BILL : 1950 \.br\Allergies: penicillin\.br\Diagno sis: Accidental fall; CHI (closed head injury); Contusion of rib on right side; Laceration of scalp\.br\ \.br\ Visit Date: 11/24/2021 12:30:03 \.br\ Current Date Time: 11/24/2021 17:30:08 \.br\Address: [facility] [place] [address] \.br\ \.br\ \.br\Primary Care Provider: \.br\Name: NO FAMILY PHYSICIAN, 837\.br\Phone: \.br\ \.br\Emergency Department Care Providers: \.br\ Primary Physician: LUIS MCKEON MD \.br\ \.br\ \.br\.br\Thank you for choosing [facility] for your emergency care. You [...] service.\.br\.br\Maxx nk you again for allowing the [facility] Emergency Department to care for your medical needs. If you have questions about your care or follow up information please contact us at [phone].\.br\.b r\ Follow-Up Instructions\.br\____ _\.br\OZZIE GIFFORD has been given these follow-up instructions:\.br\.b r\.br\With: Address: When: \.br\ONELIA CAMPOS, Family Practice [address] [facility], [address] [place] [address]\.br\ Business (1) Within 7 to 10 days \.br\.br\.br\With: Address: When: \.br\[address] NO FAMILY PHYSICIAN Within 3 to 5 days \.br\.br\.br\.br\ .br\Patient Education Materials\.br\ \. br\OZZIE GIFFORD has been given the following patient education materials:\.br\.br\C uts Closed With [place]: Care Instructions\.br\Your Care Instructions\.br\A cut can happen anywhere on your body.\.br\The doctor used kemi to close the cut. [place] easily and quickly close a cut, which [...] your doctor if you can take an [id number] medicine.\.br\When should you call for help?\.br\ Call [...] get b (more content not included)... Normal [facility] ED Physician Reporton 2021 ED [...] The location where the incident occurred was [facility]. Location: Posterior head. The character of symptoms is pain. Therapy today: see nurses notes. Associated symptoms: denies loss of consciousness. This is a 71 y/o female presenting to the ED via EMS for evaluation of a mechanical fall. The patient states she was at the [facility] and she was going down steps and [...] tenderness, no swelling, no deformity. Psychiatric: Cooperative. [place] coma scale Eye response: 4 /4, verbal [...] WO CONTRAST (more content not included)... Normal [facility] ED Pre-Arrival Formon 2021 ED Pre-Arrival Form Pre-Arrival Summary Name: KARTIK, Current Date: 11/24/2021 12:31:19 EDT Gender: Date of : Age: Pre-Arrival Type: EMS ETA: 11/24/2021 12:53:00 EDT Primary Care Physician: Presenting Problem: Pre-Arrival User: Kailyn Jacobs RN Referring Source: Location: 1 [facility] Emergency Department [address] [place] [id number] Notes: Vital Signs: Doctor Call Back: DNR Status: Miscellaneous Issues: Normal [facility] ED Progress Noteon ED Progress [...] understanding, pt ambulatory with steady gait Normal [facility] ED Triage Adult-Texton 11-24 ED [...] PNED ; Probability: 0 ; Diagnosis Code: [id number] (As Of: 11/24/2021 13:00:25 EDT) Vitals/Ht/Wt Temperature [...] Mccarthy RN - 11/24/2021 12:59 EDT Normal [facility] Urine culture routineOrdered By: Rafiq Bahena on 11-23-2021 Bacteria identified Cx Nom (U) Escherichia coli [facility] Albumin [Mass/volume] in Ser um or PlasmaOrdered By: Ashleigh Rashid on 11-22-2021 Albumin [Mass/Vol] 3.0 g/dL 3.2-5.5 [facility] Basophils Auto (Bld) [#/Vol] Ordered By: Ashleigh Rashid on 11-22-2021 Basophils (Bld) [#/Vol] 0.0 10*3/uL 0.0-0.2 [facility] Basophils/100 WBC Auto (Bld) Ordered By: Ashleigh Rashid on 11-22-2021 Basophils/100 WBC (Bld) 0.6 % . [facility] Creatinine and Glomerular fi ltration rate.predicted panel (S/P/Bld)Ordered By: Ashleigh Rashid on 11-22-2021 Creatinine [Mass/Vol] 1.10 mg/dL 0.44-1.03 [facility] Comment on above: Delta: 2.08 on 11/21 Eosinophils Auto (Bld) [#/Vo l]Ordered By: Ashleigh Rashid on 11-22-2021 Eosinophils (Bld) [#/Vol] 0.2 10*3/uL 0.0-0.45 [facility] Eosinophils/100 WBC Auto (Bl d)Ordered By: Ashleigh Rashid on 11-22-2021 Eosinophils/100 WBC (Bld) 4.4 % . [facility] Erythrocyte distribution wid th Auto (RBC) [Ratio]Ordered By: Ashleigh Rashid on 11-22-2021 Erythrocyte distribution width (RBC) [Ratio] 20.7 % 11.9-15.3 [facility] Estimated glomerular filtrat ion rate (GFR) non- AmericanOrdered By: Ashleigh Rashid on 11-22-2021 GFR/1.73 sq M.predicted among non-blacks MDRD (S/P/Bld) [Vol rate/Area] 49 mL/Min [facility] Globulin Calc (S) [Mass/Vol] Ordered By: Ashleigh Rashid on 11-22-2021 Globulin (S) [Mass/Vol] 2.4 g/dL [facility] Hematocrit Auto (Bld) [Volum e fraction]Ordered By: Ashleigh Rashid on 11-22-2021 Hematocrit (Bld) [Volume fraction] 36.9 % 34.0-46.4 [facility] Hemoglobin [Mass/volume] in BloodOrdered By: Ashleigh Rashid on 11-22-2021 Hemoglobin (Bld) [Mass/Vol] 12.1 g/dL 11.8-15.4 [facility] Laboratory - Chemistry and C hemistry - challengeOrdered By: Ashleigh Rashid on 11-22-2021 Magnesium [Mass/Vol] 2.1 mg/dL 1.6-2.6 [facility] Laboratory - Hematology and Cell countsOrdered By: Ashleigh Rashid on 11-22-2021 Nucleated RBC/100 WBC (Bld) [Ratio] 0.1 % 0-0.5 [facility] Leukocytes [#/volume] in Blo od by Automated countOrdered By: Ashleigh Rashid on 11-22-2021 WBC (Bld) [#/Vol] 4.7 10*3/uL 4.5-11.0 [facility] Lymphocytes Auto (Bld) [#/Vo l]Ordered By: Ashleigh Rashid on 11-22-2021 Lymphocytes (Bld) [#/Vol] 1.2 10*3/uL 1.00-4.8 [facility] Lymphocytes/100 WBC Auto (Bl d)Ordered By: Ashleigh Rashid on 11-22-2021 Lymphocytes/100 WBC (Bld) 26.0 % . [facility] MCH Auto (RBC) [Entitic mass ]Ordered By: Ashleigh Rashid on 11-22-2021 MCH (RBC) [Entitic mass] 27.2 pg 24.7-34.3 [facility] MCHC Auto (RBC) [Mass/Vol]Or dered By: Ashleigh Rashid on 11-22-2021 MCHC (RBC) [Mass/Vol] 32.6 g/dL 32.0-35.0 [facility] MCV Auto (RBC) [Entitic vol] Ordered By: Ashleigh Rashid on 11-22-2021 MCV (RBC) [Entitic vol] 83.5 fL 80-100 [facility] Monocytes Auto (Bld) [#/Vol] Ordered By: Ashleigh Rashid on 11-22-2021 Monocytes (Bld) [#/Vol] 0.4 10*3/uL 0.0-0.8 [facility] Monocytes/100 WBC Auto (Bld) Ordered By: Ashleigh Rashid on 11-22-2021 Monocytes/100 WBC (Bld) 8.4 % . [facility] Neutrophils Auto (Bld) [#/Vo l]Ordered By: Ashleigh Rashid on 11-22-2021 Neutrophils (Bld) [#/Vol] 2.8 10*3/uL 1.8-7.7 [facility] Neutrophils/100 WBC Auto (Bl d)Ordered By: Ashleigh Rashid on 11-22-2021 Neutrophils/100 WBC (Bld) 60.6 % . [facility] No Panel InformationOrdered By: Ashleigh Rashid on 10-12-2022 Estimated GFR () 59 mL/Min [facility] Comment on above: GFR estimated refere nce range: According to KDOQI guidelines, <60 ml/min/1.73m2 is sufficient to diagnose a patient with chronic kidney disease. Pharmacy Creatinine Clearance (Chem 44.22 [facility] Platelet mean volume Auto (B ld) [Entitic vol]Ordered By: Ashleigh Rashid on 11-22-2021 Platelet mean volume (Bld) [Entitic vol] 9.7 fL 6.3-10.7 [facility] Platelets Auto (Bld) [#/Vol] Ordered By: Ashleigh Rashid on 11-22-2021 Platelets (Bld) [#/Vol] 184 10*3/uL 150-450 [facility] Protein [Mass/volume] in Ser um or PlasmaOrdered By: Ashleigh Rashid on 11-22-2021 Protein [Mass/Vol] 5.4 g/dL 6.1-7.9 [facility] RBC Auto (Bld) [#/Vol]Ordere d By: Ashleigh Rashid on 11-22-2021 RBC (Bld) [#/Vol] 4.43 10*6/uL 3.60-5.00 [facility] Serum or plasma alanine zapata otransferase measurement without P-5'-P (enzymatic activiOrdered By: Ashleigh Rashid on 11-22-2021 ALT No additional P-5'-P [Catalytic activity/Vol] 16 U/L 10-60 [facility] Serum or plasma albumin/glob ulin mass ratioOrdered By: Ashleigh Rashid on 11-22-2021 Albumin/Globulin [Mass ratio] 1.3 {ratio} [facility] Serum or plasma alkaline brandy sphatase measurement (enzymatic activity/volume)Ordered By: Ashleigh Rashid on 11-22-2021 ALP [Catalytic activity/Vol] 70 U/L 32-92 [facility] Serum or plasma anion gap de terminationOrdered By: Ashleigh Rashid on 11-22-2021 Anion gap [Moles/Vol] 12.2 mmol/L 6.0-15.0 [facility] Serum or plasma aspartate am inotransferase measurement (enzymatic activity/volume)Ordered By: Ashleigh Rashid on 11-22-2021 AST [Catalytic activity/Vol] 15 U/L 10-42 [facility] Serum or plasma calcium lay urement (mass/volume)Ordered By: Ashleigh Rashid on 11-22-2021 Calcium [Mass/Vol] 8.9 mg/dL 8.2-10.2 [facility] Serum or plasma chloride rosaline surement (moles/volume)Ordered By: Ashleigh Rashid on 11-22-2021 Chloride [Moles/Vol] 115 mmol/L 95-114 [facility] Serum or plasma glucose lay urement (mass/volume)Ordered By: Ashleigh Rashid on 11-22-2021 Glucose [Mass/Vol] 93 mg/dL 70-100 [facility] Comment on above: ADA recommended refe rence rangeRandom Glucose Reference Range is dependent on time and content of last meal. Glucose of more than 200 mg/dL in a nonstressed, ambulatory subject supports the diagnosis of Diabetes Mellitus. Serum or plasma potassium me asurement (moles/volume)Ordered By: Ashleigh Rashid on 11-22-2021 Potassium [Moles/Vol] 3.1 mmol/L 3.5-5.1 [facility] Serum or plasma sodium measu rement (moles/volume)Ordered By: Ashleigh Rashid on 11-22-2021 Sodium [Moles/Vol] 147 mmol/L 136-146 [facility] Serum or plasma total biliru bin measurement (mass/volume)Ordered By: Ashleigh Rashid on 11-22-2021 Bilirubin [Mass/Vol] 0.7 mg/dL 0.3-1.2 [facility] Serum or plasma total carbon dioxide measurement (moles/volume)Ordered By: Ashleigh Rashid on 11-22-2021 CO2 [Moles/Vol] 22.9 mmol/L 22.0-30.0 [facility] Serum or plasma urea nitroge n measurement (mass/volume)Ordered By: Ashleigh Rashid on 11-22-2021 Urea nitrogen [Mass/Vol] 28 mg/dL 9- [facility] Amphetamine Screen Ql (U)Ord ered By: Rafiq Bahena on 11-21-2021 Amphetamines Ql (U) Negative Negative [facility] Automated erythrocytes count in urine sediment (number/area)Ordered By: Rafiq Bahena on 11-21-2021 RBC Auto (Urine sed) [#/Area] 0-1 [HPF] 0-4 [facility] Automated leukocytes count i n urine sediment (number/area)Ordered By: Rafiq Bahena on 11-21-2021 WBC Auto (Urine sed) [#/Area] 3-4 [HPF] 0-4 [facility] Barbiturates [Presence] in U rineOrdered By: Rafiq Bahena on 11-21-2021 Barbiturates Ql (U) Negative Negative [facility] Basophils Auto (Bld) [#/Vol] Ordered By: Rafiq Bahena on 11-21-2021 Basophils (Bld) [#/Vol] 0.0 10*3/uL 0.0-0.2 [facility] Basophils/100 WBC Auto (Bld) Ordered By: Rafiq Bahena on 11-21-2021 Basophils/100 WBC (Bld) 0.8 % . [facility] Benzodiazepines [Presence] i n UrineOrdered By: Rafiq Bahena on 11-21-2021 Benzodiazepines Ql (U) Negative Negative [facility] Bilirubin Test strip Ql (U)O rdered By: Rafiq Bahena on 11-21-2021 Bilirubin Ql (U) Negative Negative [facility] Blood hemoglobin measurement (mass/volume)Ordered By: Rafiq Bahena on 11-21-2021 Hemoglobin (Bld) [Mass/Vol] 11.6 g/dL 11.8-15.4 [facility] Blood leukocytes automated c ount (number/volume)Ordered By: Rafiq Bahena on 11-21-2021 WBC (Bld) [#/Vol] 5.3 10*3/uL 4.5-11.0 [facility] Body fluid albumin measureme nt (mass/volume)Ordered By: Rafiq Bahena on 11-21-2021 Albumin (Body fld) [Mass/Vol] 3.4 g/dL 3.2-5.5 [facility] COVID CepheidOrdered By: Dagoberto Rashid on 11-21-2021 SARS-CoV-2 (COVID-19) Ab IA Ql Negative Negative [facility] Comment on above: This is a duplicate NoteWagon Xpert Xpress CoV-2/Flu/RSV Plus RNA by RT-PCR result to be used for statistical tracking purpose only. SARS-CoV-2 (COVID-19) RNA SIOBHAN+probe Ql (Unsp spec) [facility] COVID-19 Positive/NegativeOr dered By: Rafiq Bahena on 11-21-2021 SARS-CoV-2 (COVID-19) N gene SIOBHAN+probe Ql (Resp) Indeterminate Negative [facility] Comment on above: Testing for SARS-CoV -2 by RT-PCRThis test was developed and its performance characteristics determined by [employer] ([employer]) and validated at the [facility]. This test has not been FDA cleared [...] (COVID-19) Ag IA.rapid Ql (Resp) Negative Negative [facility] Comment on above: This is a duplicate Sissy SARS Antigen ([place]ALK[place]) result to be used for statistical tracking purpose only. Cannabinoids [Presence] in U rine by Screen methodOrdered By: Rafiq Bahena on 11-21-2021 Cannabinoids Screen Ql (U) Negative Negative [facility] Comment on above: These are unconfirme d results and should not be used for legal purposes. Drug Cut-Off Concentration: AMPH 1000 ng/mL RONALD 200 ng/mL CARMELA 200 ng/mL COCM 300 ng/mL OP 300 ng/mL PCP 25 ng/mL THC 20 ng/mL Color Auto (U)Ordered By: Vishnu Bahena on 11-21-2021 Color (U) Yellow Yellow [facility] Creatinine and Glomerular fi ltration rate.predicted panel (S/P/Bld)Ordered By: Rafiq Bahena on 11-21-2021 Creatinine [Mass/Vol] 2.08 mg/dL 0.44-1.03 [facility] Eosinophils Auto (Bld) [#/Vo l]Ordered By: Rafiq Bahena on 11-21-2021 Eosinophils (Bld) [#/Vol] 0.2 10*3/uL 0.0-0.45 [facility] Eosinophils/100 WBC Auto (Bl d)Ordered By: Rafiq Bahena on 11-21-2021 Eosinophils/100 WBC (Bld) 3.7 % . [facility] Erythrocyte distribution wid th Auto (RBC) [Ratio]Ordered By: Rafiq Bahena on 11-21-2021 Erythrocyte distribution width (RBC) [Ratio] 20.4 % 11.9-15.3 [facility] Estimated glomerular filtrat ion rate (GFR) non- AmericanOrdered By: Rafiq Bahena on 11-21-2021 GFR/1.73 sq M.predicted among non-blacks MDRD (S/P/Bld) [Vol rate/Area] 23 mL/Min [facility] Globulin Calc (S) [Mass/Vol] Ordered By: Rafiq Bahena on 11-21-2021 Globulin (S) [Mass/Vol] 2.1 g/dL [facility] Glucose Glucometer (BldC) [M ass/Vol]Ordered By: Rafiq Bahena on 11-21-2021 Glucose [Mass/Vol] 134 mg/dL [facility] Comment on above: Random Glucose Refer ence Range is dependent on time and content of last meal. Glucose of more than 200 mg/dL in a nonstressed, ambulatory subject supports the diagnosis of Diabetes Mellitus. Hematocrit Auto (Bld) [Volum e fraction]Ordered By: Rafiq Bahena on 11-21-2021 Hematocrit (Bld) [Volume fraction] 35.6 % 34.0-46.4 [facility] Ketones Auto test strip (U) [Mass/Vol]Ordered By: Rafiq Bahena on 11-21-2021 Ketones (U) [Mass/Vol] Negative Negative [facility] Laboratory - Chemistry and C hemistry - challengeOrdered By: Rafiq Bahena on 11-21-2021 CO2 [Moles/Vol] 23.8 mmol/L 23.0-27.0 [facility] HCO3 (Bld) [Moles/Vol] 22.6 mmol/L 23.0-29.[address] [facility] Laboratory - Drug toxicology Ordered By: Rafiq Bahena on 11-21-2021 Opiates Ql (U) Negative Negative [facility] Laboratory - Hematology and Cell countsOrdered By: Rafiq Bahena on 11-21-2021 Nucleated RBC/100 WBC (Bld) [Ratio] 0.0 % 0-0.5 [facility] Laboratory - UrinalysisOrder ed By: Rafiq Bahena on 11-21-2021 Hyaline casts LM Ql (Urine sed) 0-8 [LPF] 0-8 [facility] Lymphocytes Auto (Bld) [#/Vo l]Ordered By: Rafiq Bahena on 11-21-2021 Lymphocytes (Bld) [#/Vol] 1.1 10*3/uL 1.00-4.8 [facility] Lymphocytes/100 WBC Auto (Bl d)Ordered By: Rafiq Bahena on 11-21-2021 Lymphocytes/100 WBC (Bld) 20.4 % . [facility] MCH Auto (RBC) [Entitic mass ]Ordered By: Rafiq Bahena on 11-21-2021 MCH (RBC) [Entitic mass] 26.9 pg 24.7-34.3 [facility] MCHC Auto (RBC) [Mass/Vol]Or dered By: Rafiq Bahena on 11-21-2021 MCHC (RBC) [Mass/Vol] 32.6 g/dL 32.0-35.0 [facility] MCV Auto (RBC) [Entitic vol] Ordered By: Rafiq Bahena on 11-21-2021 MCV (RBC) [Entitic vol] 82.5 fL 80-100 [facility] Monocyte %Ordered By: Rafiq Bahena on 11-21-2021 Monocyte % 17 umol/L 11-35 [facility] Monocytes Auto (Bld) [#/Vol] Ordered By: Rafiq Bahena on 11-21-2021 Monocytes (Bld) [#/Vol] 0.5 10*3/uL 0.0-0.8 [facility] Monocytes/100 WBC Auto (Bld) Ordered By: Rafiq Bahena on 11-21-2021 Monocytes/100 WBC (Bld) 9.9 % . [facility] Neutrophils Auto (Bld) [#/Vo l]Ordered By: Rafiq Bahena on 11-21-2021 Neutrophils (Bld) [#/Vol] 3.5 10*3/uL 1.8-7.7 [facility] Neutrophils/100 WBC Auto (Bl d)Ordered By: Rafiq Bahena on 11-21-2021 Neutrophils/100 WBC (Bld) 65.2 % . [facility] Nitrite Test strip Ql (U)Ord ered By: Rafiq Bahena on 11-21-2021 Nitrite Ql (U) Positive Negative [facility] No Panel InformationOrdered By: Ashleigh Rashid on 11-21-2021 Vitamin B12 Level > 7500 pg/mL 180-914 [facility] No Panel InformationOrdered By: Rafiq Bahena on 11-21-2021 Arterial Blood Base Excess -1.9 mmol/L -3.0-3.0 [facility] Arterial Blood Oxygen Content 7.1 mmol/L 6.6-9.7 [facility] Arterial Blood Oxygen Saturation 95.9 % 95.0-100.0 [facility] Arterial Blood Partial Pressure CO2 37.8 mm[Hg] 35.0-45.0 [facility] Arterial Blood Partial Pressure O2 82.7 mm[Hg] 80.0-100.0 [facility] Arterial Blood pH 7.40 7.35-7.45 [facility] Blood Gas Critical Value See comment [facility] Comment on above: Critical Value rosetta segura on: 11/21/2021 at 06:17 Blood Gas Sample Site Left radial [facility] FiO2 21 % [facility] Estimated GFR () 28 mL/Min [facility] Comment on above: GFR estimated refere nce range: According to KDOQI guidelines, <60 ml/min/1.73m2 is sufficient to diagnose a patient with chronic kidney disease. Pharmacy Creatinine Clearance (Chem 22.98 [facility] Bedside Glucose Comment Glu2: cleaned meter [facility] Phencyclidine Screen Ql (U)O rdered By: Rafiq Bahena on 11-21-2021 Phencyclidine Ql (U) Negative Negative [facility] Platelet mean volume Auto (B ld) [Entitic vol]Ordered By: Rafiq Bahena on 11-21-2021 Platelet mean volume (Bld) [Entitic vol] 9.6 fL 6.3-10.7 [facility] Platelets Auto (Bld) [#/Vol] Ordered By: Rafiq Bahena on 11-21-2021 Platelets (Bld) [#/Vol] 140 10*3/uL 150-450 [facility] Protein Auto test strip (U) [Mass/Vol]Ordered By: Rafiq Bahena on 11-21-2021 Protein (U) [Mass/Vol] Negative Negative [facility] Protein [Mass/volume] in Ser um or PlasmaOrdered By: Rafiq Bahena on 11-21-2021 Protein [Mass/Vol] 5.5 g/dL 6.1-7.9 [facility] RBC Auto (Bld) [#/Vol]Ordere d By: Rafiq Bahena on 11-21-2021 RBC (Bld) [#/Vol] 4.31 10*6/uL 3.60-5.00 [facility] Serum or plasma alanine zapata otransferase measurement without P-5'-P (enzymatic activiOrdered By: Rafiq Bahena on 11-21-2021 ALT No additional P-5'-P [Catalytic activity/Vol] 17 U/L 10-60 [facility] Serum or plasma albumin/glob ulin mass ratioOrdered By: Rafiq Bahena on 11-21-2021 Albumin/Globulin [Mass ratio] 1.6 {ratio} [facility] Serum or plasma alkaline brandy sphatase measurement (enzymatic activity/volume)Ordered By: Rafiq Bahena on 11-21-2021 ALP [Catalytic activity/Vol] 74 U/L 32-92 [facility] Serum or plasma anion gap de terminationOrdered By: Rafiq Bahena on 11-21-2021 Anion gap [Moles/Vol] 14.6 mmol/L 6.0-15.0 [facility] Serum or plasma aspartate am inotransferase measurement (enzymatic activity/volume)Ordered By: Rafiq Bahena on 11-21-2021 AST [Catalytic activity/Vol] 19 U/L 10- [facility] Serum or plasma calcium lay urement (mass/volume)Ordered By: Rafiq Bahena on 11-21-2021 Calcium [Mass/Vol] 9.1 mg/dL 8.2-10.2 [facility] Serum or plasma chloride rosaline surement (moles/volume)Ordered By: Rafiq Bahena on 11-21-2021 Chloride [Moles/Vol] 107 mmol/L 95-114 [facility] Serum or plasma ethanol lay urement (mass/volume)Ordered By: Rafiq Bahena on 11-21-2021 Ethanol [Mass/Vol] mg/dL [facility] Ethanol [Mass/Vol] TNP [facility] Comment on above: Test not performed Serum or plasma glucose lay urement (mass/volume)Ordered By: Rafiq Bahena on 11-21-2021 Glucose [Mass/Vol] 124 mg/dL 70-100 [facility] Comment on above: ADA recommended refe rence rangeRandom Glucose Reference Range is dependent on time and content of last meal. Glucose of more than 200 mg/dL in a nonstressed, ambulatory subject supports the diagnosis of Diabetes Mellitus. Serum or plasma potassium me asurement (moles/volume)Ordered By: Rafiq Bahena on 11-21-2021 Potassium [Moles/Vol] 3.1 mmol/L 3.5-5.1 [facility] Serum or plasma sodium measu rement (moles/volume)Ordered By: Rafiq Bahena on 11-21-2021 Sodium [Moles/Vol] 142 mmol/L 136-146 [facility] Serum or plasma total biliru bin measurement (mass/volume)Ordered By: Rafiq Bahena on 11-21-2021 Bilirubin [Mass/Vol] 0.3 mg/dL 0.3-1.2 [facility] Serum or plasma total carbon dioxide measurement (moles/volume)Ordered By: Rafiq Bahena on 11-21-2021 CO2 [Moles/Vol] 23.5 mmol/L 22.0-30.0 [facility] Serum or plasma urea nitroge n measurement (mass/volume)Ordered By: Rafiq Bahena on 11-21-2021 Urea nitrogen [Mass/Vol] 49 mg/dL 9- [facility] Specific gravity Auto test s trip (U) [Rel density]Ordered By: Rafiq Bahena on 11-21-2021 Specific gravity (U) [Rel density] 1.010 1.001-1.030 [facility] Squamous epithelial cells de tection in urine sediment by light microscopyOrdered By: Rafiq Bahena on 11-21-2021 Epithelial cells.squamous LM Ql (Urine sed) 1-2 [HPF] 0-2 [facility] TSH DL <= 0.005 mIU/L QnOrde red By: Rafiq Bahena on 11-21-2021 TSH Qn 2.40 m[IU]/L 0.45-5.33 [facility] Thyroxine (T4) free [Mass/vo lume] in Serum or PlasmaOrdered By: Rafiq Bahena on 11-21-2021 Free T4 [Mass/Vol] 0.68 ng/dL 0.61-1.12 [facility] Troponin I.cardiac [Mass/vol ume] in Serum or Plasma by High sensitivity methodOrdered By: Rafiq Bahena on 11-21-2021 Troponin I.cardiac High sensitivity method [Mass/Vol] 6 pg/mL 0-15 [facility] Urine bacteria detection by automated methodOrdered By: Rafiq Bahena on 11-21-2021 Bacteria Auto Ql (U) 2+ None Seen [facility] Urine clarity by refractomet ry automatedOrdered By: Rafiq Bahena on 11-21-2021 Clarity Refractometry automated (U) Clear Clear [facility] Urine cocaine detectionOrder ed By: Rafiq Bahena on 11-21-2021 Cocaine Ql (U) Negative Negative [facility] Urine glucose measurement by automated test strip (mass/volume)Ordered By: Rafiq Bahena on 11-21-2021 Glucose Auto test strip (U) [Mass/Vol] Normal mg/dL Normal [facility] Urine hemoglobin detection b y automated test stripOrdered By: Rafiq Bahena on 11-21-2021 Hemoglobin Auto test strip Ql (U) Negative Negative [facility] Urine leukocyte esterase det ection by automated test stripOrdered By: Rafiq Bahena on 11-21-2021 Leukocyte esterase Auto test strip Ql (U) 1+ Negative [facility] Urobilinogen Auto test strip (U) [Mass/Vol]Ordered By: Rafiq Bahena on 11-21-2021 Urobilinogen (U) [Mass/Vol] Normal mg/dL Normal [facility] pH Auto test strip (U)Ordere d By: Rafiq Bahena on 11-21-2021 pH (U) 5.5 [pH] 5.0-9.0 [facility] CBC AUTO DIFFon 10-24-2021 BASO # 0.1 103/ul Normal 0.0-0.1 [facility] Comment on above: Performed By: #### C BC #### [facility] [address] [place] [address] Dr. Grzegorz Wang Basophils/100 WBC (Bld) 0.6 % Normal 0.2-2.0 [facility] Comment on above: Performed By: #### C BC #### [facility] [address] [place] [address] Dr. Grzegorz Wang EO # 0.4 103/ul Normal 0.0-0.7 [facility] Comment on above: Performed By: #### C BC #### [facility] [address] [place] [address] Dr. Grzegorz Wang Eosinophils/100 WBC (Bld) 5.0 % Normal 0.9-7.0 [facility] Comment on above: Performed By: #### C BC #### [facility] [address] [place] [address] Dr. Grzegorz Wang Erythrocyte distribution width (RBC) [Ratio] 18.6 % Critically high 11.0-15.0 [facility] Comment on above: Performed By: #### C BC #### [facility] [address] [place] [address] Dr. Grzegorz Wang Hematocrit (Bld) [Volume fraction] 35.7 % Critically low 36.0-48.0 [facility] Comment on above: Performed By: #### C BC #### [facility] [address] [place] [address] Dr. Grzegorz Wang Hemoglobin (Bld) [Mass/Vol] 11.2 g/dL Critically low 12.0-16.0 [facility] Comment on above: Performed By: #### C BC #### [facility] [address] [place] [address] Dr. Grzegorz Wang IG # 0.04 10e3/ul Critically high 0.00-0.03 [facility] Comment on above: Performed By: #### C BC #### [facility] [address] [place] [address] Dr. Grzegorz Wang IG % 0.5 % Normal 0.0-0.5 [facility] Comment on above: Performed By: #### C BC #### [facility] [address] [place] [address] Dr. Grzegorz Wang LYMPH # 1.9 103/ul Normal 1.2-3.[address] [facility] Comment on above: Performed By: #### C BC #### [facility] [address] [place] [address] Dr. Grzegorz Wang Lymphocytes/100 WBC (Bld) 22.2 % Normal 20.5-60.0 [facility] Comment on above: Performed By: #### C BC #### [facility] [address] [place] [address] Dr. Grzegorz Wang MANUAL DIFF REQ NO Normal [facility] Comment on above: Performed By: #### C BC #### [facility] [address] [place] [address] Dr. Grzegorz Wang MCH (RBC) [Entitic mass] 26.4 pg Critically low 26.7-34.0 [facility] Comment on above: Performed By: #### C BC #### [facility] [address] [place] [address] Dr. Grzegorz Wang MCHC (RBC) [Mass/Vol] 31.4 g/dL Normal 29.9-35.2 [facility] Comment on above: Performed By: #### C BC #### [facility] [address] [place] [address] Dr. Grzegorz Wang MCV (RBC) [Entitic vol] 84.2 fL Normal 81.0-99.0 [facility] Comment on above: Performed By: #### C BC #### [facility] [address] [place] [address] Dr. Grzegorz Wang MONO # 0.8 103/ul Normal 0.3-0.8 [facility] Comment on above: Performed By: #### C BC #### [facility] [address] [place] [address] Dr. Grzegorz Wang Monocytes/100 WBC (Bld) 10.0 % Normal 1.7-12.0 [facility] Comment on above: Performed By: #### C BC #### [facility] [address] [place] [address] Dr. Grzegorz Wang NEUT # 5.2 103/ul Normal 1.4-6.5 [facility] Comment on above: Performed By: #### C BC #### [facility] [address] [place] [address] Dr. Grzegorz Wang Neutrophils/100 WBC (Bld) 61.7 % Normal 43.0-75.0 [facility] Comment on above: Performed By: #### C BC #### [facility] [address] [place] [address] Dr. Grzegorz Wang Platelet mean volume (Bld) [Entitic vol] 11.8 fL Normal 9.5-13.5 [facility] Comment on above: Performed By: #### C BC #### [facility] [address] [place] [address] Dr. Grzegorz Wang PLT 219 103/ul Normal 150-[address] [facility] Comment on above: Performed By: #### C BC #### [facility] [address] [place] [address] Dr. Grzegorz Wang RBC 4.24 106/ul Normal 4.20-5.40 [facility] Comment on above: Performed By: #### C BC #### [facility] [address] [place] [address] Dr. Grzegorz Wang WBC 8.4 103/ul Normal 4.0-11.0 [facility] Comment on above: Performed By: #### C BC #### [facility] [address] [place] [address] Dr. Grzegorz Wang PRBC LEUKOREDUCEDon 10-23-19 ABO and Rh group Nom (Bld) Cross Match Result Compatible Unit Blood Type O Pos Unit Number [id number] Status Information Transfused Product ID Red Blood Cells Product Code [id number] Cross Match Result Compatible Blood Bank Notes CALLED SARATH GLYNN RN ON [facility] 10/17/21 @ 0850 Unit Blood Type O Neg Unit Number [id number] Status Information Transfused Product ID Red Blood Cells Product Code [id number] [facility] Comment on above: Performed By: #### C BC #### [facility] [address] [place] [address] Dr. Grzegorz Wang ABO and Rh group Nom (Bld) Cross Match Result Compatible Unit Blood Type O Neg Unit Number [id number] Status Information Transfused Product ID Red Blood Cells Product Code [id number] Cross Match Result Compatible Unit Blood Type O Neg Unit Number [id number] Status Information Transfused Product ID Red Blood Cells Product Code [id number] [facility] Comment on above: Performed By: #### C BC #### [facility] [address] [place] [address] Dr. Grzegorz Wang CBC AUTO DIFFon 10-18-2021 BASO # 0.0 103/ul Normal 0.0-0.1 [facility] Comment on above: Performed By: #### C BC #### [facility] [address] [address] [address] Grzegorz Wang Basophils/100 WBC (Bld) 0.7 % Normal 0.2-2.0 [facility] Comment on above: Performed By: #### C BC #### [facility] [address] [address] [address] Grzegorz Wang EO # 0.2 103/ul Normal 0.0-0.7 [facility] Comment on above: Performed By: #### C BC #### [facility] [address] [address] [address] Grzegorz Wang Eosinophils/100 WBC (Bld) 2.9 % Normal 0.9-7.0 [facility] Comment on above: Performed By: #### C BC #### [facility] [address] [place] [address] Dr. Grzegorz Wang Erythrocyte distribution width (RBC) [Ratio] 17.8 % Critically high 11.0-15.0 [facility] Comment on above: Performed By: #### C BC #### [facility] [address] [place] [address] Dr. Grzegorz Wang Hematocrit (Bld) [Volume fraction] 30.1 % Critically low 36.0-48.0 [facility] Comment on above: Performed By: #### C BC #### [facility] [address] [place] [address] Dr. Grzegorz Wang Hemoglobin (Bld) [Mass/Vol] 9.6 g/dL Critically low 12.0-16.0 [facility] Comment on above: Performed By: #### C BC #### [facility] [address] [place] [address] Dr. Grzegorz Wang IG # 0.08 10e3/ul Critically high 0.00-0.03 [facility] Comment on above: Performed By: #### C BC #### [facility] [address] [place] [address] Dr. Grzegorz Wang IG % 1.3 % Critically high 0.0-0.5 [facility] Comment on above: Performed By: #### C BC #### [facility] [address] [address] [address] Grzegorz Wang LYMPH # 1.8 103/ul Normal 1.2-3.8 [facility] Comment on above: Performed By: #### C BC #### [facility] [address] [address] [address] Grzegorz Wang Lymphocytes/100 WBC (Bld) 29.4 % Normal 20.5-60.0 [facility] Comment on above: Performed By: #### C BC #### [facility] [address] [place] [address] Dr. Grzegorz Wang MANUAL DIFF REQ NO Normal [facility] Comment on above: Performed By: #### C BC #### [facility] [address] [place] [address] Dr. Grzegorz Wang MCH (RBC) [Entitic mass] 25.9 pg Critically low 26.7-34.0 [facility] Comment on above: Performed By: #### C BC #### [facility] [address] [place] [address] Dr. Grzegorz Wang MCHC (RBC) [Mass/Vol] 31.9 g/dL Normal 29.9-35.2 [facility] Comment on above: Performed By: #### C BC #### [facility] [address] [place] [address] Dr. Grzegorz Wang MCV (RBC) [Entitic vol] 81.4 fL Normal 81.0-99.0 [facility] Comment on above: Performed By: #### C BC #### [facility] [address] [place] [address] Dr. Grzegorz Wang MONO # 0.7 103/ul Normal 0.3-0.8 [facility] Comment on above: Performed By: #### C BC #### [facility] [address] [place] [address] Dr. Grzegorz Wang Monocytes/100 WBC (Bld) 11.9 % Normal 1.7-12.0 [facility] Comment on above: Performed By: #### C BC #### [facility] [address] [address] [address] Grzegorz Wang NEUT # 3.3 103/ul Normal 1.4-6.[address] [facility] Comment on above: Performed By: #### C BC #### [facility] [address] [address] [address] Grzegorz Wang Neutrophils/100 WBC (Bld) 53.8 % Normal 43.0-75.[address] [facility] Comment on above: Performed By: #### C BC #### [facility] [address] [place] [address] Dr. Grzegorz Wang Platelet mean volume (Bld) [Entitic vol] 10.5 fL Normal 9.5-13.[address] [facility] Comment on above: Performed By: #### C BC #### [facility] [address] [address] [address] Grzegorz Wang PLT 206 103/ul Normal 150-[address] [facility] Comment on above: Performed By: #### C BC #### [facility] [address] [place] [address] Dr. Grzegorz Wang RBC 3.70 106/ul Critically low 4.20-5.40 [facility] Comment on above: Performed By: #### C BC #### [facility] [address] [place] [address] Dr. Grzegorz Wang WBC 6.1 103/ul Normal 4.0-11.[address] [facility] Comment on above: Performed By: #### C BC #### [facility] [address] [address] [address] Grzegorz Wang PROF CHEM 8 (BAS METB)on Anion gap [Moles/Vol] 9.6 mmol/L Normal [facility] Comment on above: Performed By: #### C BC #### [facility] [address] [place] [address] Dr. Grzegorz Wang Calcium [Mass/Vol] 8.5 mg/dL Normal 8.5-10.1 [facility] Comment on above: Performed By: #### C BC #### [facility] [address] [address] [address] Grzegorz Wang Chloride [Moles/Vol] 113 mmol/L Critically high 98-107 [facility] Comment on above: Performed By: #### C BC #### [facility] [address] [address] [address] Grzegorz Wang CO2 [Moles/Vol] 26.6 mmol/L Normal 21.0-32.0 [facility] Comment on above: Performed By: #### C BC #### [facility] [address] [place] [address] Dr. Grzegorz Wang Creatinine [Mass/Vol] 0.94 mg/dL Normal 0.55-1.02 [facility] Comment on above: Performed By: #### C BC #### [facility] [address] [place] [address] Dr. Grzegorz Wang EGFR-AF [place] >60 Normal >=60 [facility] Comment on above: Performed By: #### C BC #### [facility] [address] [address] [address] Grzegorz Wang EGFR-NON AF [place] 58 mL/min/1.73m2 Critically low >=60 [facility] Comment on above: Performed By: #### C BC #### [facility] [address] [place] [address] Dr. Grzegorz Wang Glucose [Mass/Vol] 97 mg/dL Normal 74-106 [facility] Comment on above: Performed By: #### C BC #### [facility] [address] [address] [address] Grzegorz Wang Potassium [Moles/Vol] 3.2 mmol/L Critically low 3.5-5.1 [facility] Comment on above: Performed By: #### C BC #### [facility] [address] [place] [address] Dr. Grzegorz Wang Sodium [Moles/Vol] 146 mmol/L Critically high 136-145 [facility] Comment on above: Performed By: #### C BC #### [facility] [address] [place] [address] Dr. Grzegorz Wang Urea nitrogen [Mass/Vol] 38.0 mg/dL Critically high 7.0-18.0 [facility] Comment on above: Performed By: #### C BC #### [facility] [address] [place] [address] Dr. Grzegorz Wang Urea nitrogen/Creatinine [Mass ratio] 40.4 mg/mg Normal [facility] Comment on above: Performed By: #### C BC #### [facility] [address] [place] [address] Dr. Grzegorz Wang CBC AUTO DIFFon 10-17-2021 BASO # 0.1 103/ul Normal 0.0-0.1 [facility] Comment on above: Performed By: #### C BC #### [facility] [address] [place] [address] Dr. Grzegorz Wang Basophils/100 WBC (Bld) 0.9 % Normal 0.2-2.0 [facility] Comment on above: Performed By: #### C BC #### [facility] [address] [place] [address] Dr. Grzegorz Wang EO # 0.2 103/ul Normal 0.0-0.7 [facility] Comment on above: Performed By: #### C BC #### [facility] [address] [place] [address] Dr. Grzegorz Wang Eosinophils/100 WBC (Bld) 3.1 % Normal 0.9-7.0 [facility] Comment on above: Performed By: #### C BC #### [facility] [address] [place] [address] Dr. Grzegorz Wang Erythrocyte distribution width (RBC) [Ratio] 17.6 % Critically high 11.0-15.0 [facility] Comment on above: Performed By: #### C BC #### [facility] [address] [place] [address] Dr. Grzegorz Wang Hematocrit (Bld) [Volume fraction] 35.7 % Critically low 36.0-48.0 [facility] Comment on above: Performed By: #### C BC #### [facility] [address] [place] [address] Dr. Grzegorz Wang Hemoglobin (Bld) [Mass/Vol] 11.5 g/dL Critically low 12.0-16.[address] [facility] Comment on above: Result Comment: rcvd . blood Performed By: #### C BC #### [facility] [address] [address] [address] Grzegorz Wang IG # 0.18 10e3/ul Critically high 0.00-0.03 [facility] Comment on above: Performed By: #### C BC #### [facility] [address] [address] [address] Grzegorz Wang IG % 2.6 % Critically high 0.0-0.5 [facility] Comment on above: Performed By: #### C BC #### [facility] [address] [place] [address] Dr. Grzegorz Wang LYMPH # 1.5 103/ul Normal 1.2-3.[address] [facility] Comment on above: Performed By: #### C BC #### [facility] [address] [place] [address] Dr. Grzegorz Wang Lymphocytes/100 WBC (Bld) 21.4 % Normal 20.5-60.0 [facility] Comment on above: Performed By: #### C BC #### [facility] [address] [place] [address] Dr. Grzegorz Wang MANUAL DIFF REQ NO Normal [facility] Comment on above: Performed By: #### C BC #### [facility] [address] [address] [address] Grzegorz Wang MCH (RBC) [Entitic mass] 26.0 pg Critically low 26.7-34.[address] [facility] Comment on above: Performed By: #### C BC #### [facility] [address] [place] [address] Dr. Grzegorz Wang MCHC (RBC) [Mass/Vol] 32.2 g/dL Normal 29.9-35.[address] [facility] Comment on above: Performed By: #### C BC #### [facility] [address] [place] [address] Dr. Grzegorz Wang MCV (RBC) [Entitic vol] 80.6 fL Critically low 81.0-99. 0 [facility] Comment on above: Performed By: #### C BC #### [facility] [address] [place] [address] Dr. Grzegorz Wang MONO # 0.7 103/ul Normal 0.3-0.8 [facility] Comment on above: Performed By: #### C BC #### [facility] [address] [place] [address] Dr. Grzegorz Wang Monocytes/100 WBC (Bld) 10.8 % Normal 1.7-12.0 [facility] Comment on above: Performed By: #### C BC #### [facility] [address] [place] [address] Dr. Grzegorz Wang NEUT # 4.2 103/ul Normal 1.4-6.5 [facility] Comment on above: Performed By: #### C BC #### [facility] [address] [place] [address] Dr. Grzegorz Wang Neutrophils/100 WBC (Bld) 61.2 % Normal 43.0-75.0 [facility] Comment on above: Performed By: #### C BC #### [facility] [address] [place] [address] Dr. Grzegorz Wang Platelet mean volume (Bld) [Entitic vol] 9.9 fL Normal 9.5-13.5 [facility] Comment on above: Performed By: #### C BC #### [facility] [address] [place] [address] Dr. Grzegorz Wang PLT 228 103/ul Normal 150-[address] [facility] Comment on above: Performed By: #### C BC #### [facility] [address] [place] [address] Dr. Grzegorz Wang RBC 4.43 106/ul Normal 4.20-5.40 [facility] Comment on above: Performed By: #### C BC #### [facility] [address] [place] [address] Dr. Grzegorz Wang WBC 6.9 103/ul Normal 4.0-11.0 [facility] Comment on above: Performed By: #### C BC #### [facility] [address] [address] [address] Grzegorz URBINA # 0.0 103/ul Normal 0.0-0.1 [facility] Comment on above: Performed By: #### C BC #### [facility] [address] [address] [address] Grzegorz Wang Basophils/100 WBC (Bld) 0.8 % Normal 0.2-2.0 [facility] Comment on above: Performed By: #### C BC #### [facility] [address] [place] [address] Dr. Grzegorz Wang EO # 0.1 103/ul Normal 0.0-0.7 [facility] Comment on above: Performed By: #### C BC #### [facility] [address] [place] [address] Dr. Grzegorz Wang Eosinophils/100 WBC (Bld) 2.4 % Normal 0.9-7.0 [facility] Comment on above: Performed By: #### C BC #### [facility] [address] [place] [address] Dr. Grzegorz Wang Erythrocyte distribution width (RBC) [Ratio] 16.8 % Critically high 11.0-15.0 [facility] Comment on above: Performed By: #### C BC #### [facility] [address] [place] [address] Dr. Grzegorz Wang Hematocrit (Bld) [Volume fraction] 23.2 % Critically low 36.0-48.0 [facility] Comment on above: Performed By: #### C BC #### [facility] [address] [place] [address] Dr. Grzegorz Wang Hemoglobin (Bld) [Mass/Vol] 7.4 g/dL Critically low 12.0-16.0 [facility] Comment on above: Performed By: #### C BC #### [facility] [address] [place] [address] Dr. Grzegorz Wang IG # 0.05 10e3/ul Critically high 0.00-0.03 [facility] Comment on above: Performed By: #### C BC #### [facility] [address] [place] [address] Dr. Grzegorz Wang IG % 1.0 % Critically high 0.0-0.5 [facility] Comment on above: Performed By: #### C BC #### [facility] [address] [place] [address] Dr. Grzegorz Wang LYMPH # 1.4 103/ul Normal 1.2-3.8 [facility] Comment on above: Performed By: #### C BC #### [facility] [address] [place] [address] Dr. Grzegorz Wang Lymphocytes/100 WBC (Bld) 27.8 % Normal 20.5-60.0 [facility] Comment on above: Performed By: #### C BC #### [facility] [address] [place] [address] Dr. Grzegorz Wang MANUAL DIFF REQ NO Normal [facility] Comment on above: Performed By: #### C BC #### [facility] [address] [place] [address] Dr. Grzegorz Wang MCH (RBC) [Entitic mass] 25.6 pg Critically low 26.7-34.0 [facility] Comment on above: Performed By: #### C BC #### [facility] [address] [place] [address] Dr. Grzegorz Wang MCHC (RBC) [Mass/Vol] 31.9 g/dL Normal 29.9-35.2 [facility] Comment on above: Performed By: #### C BC #### [facility] [address] [place] [address] Dr. Grzegorz Wang MCV (RBC) [Entitic vol] 80.3 fL Critically low 81.0-99. 0 [facility] Comment on above: Performed By: #### C BC #### [facility] [address] [place] [address] Dr. Grzegorz Wang MONO # 0.6 103/ul Normal 0.3-0.8 [facility] Comment on above: Performed By: #### C BC #### [facility] [address] [address] [address] Grzegorz Wang Monocytes/100 WBC (Bld) 11.6 % Normal 1.7-12.0 [facility] Comment on above: Performed By: #### C BC #### [facility] [address] [address] [address] Grzegorz Wang NEUT # 2.8 103/ul Normal 1.4-6.5 [facility] Comment on above: Performed By: #### C BC #### [facility] [address] [address] [address] Grzegorz Wang Neutrophils/100 WBC (Bld) 56.4 % Normal 43.0-75.0 [facility] Comment on above: Performed By: #### C BC #### [facility] [address] [place] [address] Dr. Grzegorz Wang Platelet mean volume (Bld) [Entitic vol] 10.0 fL Normal 9.5-13.5 [facility] Comment on above: Performed By: #### C BC #### [facility] [address] [place] [address] Dr. Grzegorz Wang PLT 193 103/ul Normal 150-450 [facility] Comment on above: Performed By: #### C BC #### [facility] [address] [place] [address] Dr. Grzegorz Wang RBC 2.89 106/ul Critically low 4.20-5.40 [facility] Comment on above: Performed By: #### C BC #### [facility] [address] [place] [address] Dr. Grzegorz Wang WBC 4.9 103/ul Normal 4.0-11.0 [facility] Comment on above: Performed By: #### C BC #### [facility] [address] [place] [address] Dr. Grzegorz Wang PROF CHEM 8 (BAS METB)on Anion gap [Moles/Vol] 11.4 mmol/L Normal Th [facility] Comment on above: Performed By: #### A MY, LIPA #### [facility] [address] [address] [address] Grzegorz Wang Calcium [Mass/Vol] 8.3 mg/dL Critically low 8.5-10.1 [facility] Comment on above: Performed By: #### A MY, LIPA #### [facility] [address] [address] [address] Grzegorz Wang Chloride [Moles/Vol] 116 mmol/L Critically high 98-107 [facility] Comment on above: Performed By: #### A MY, LIPA #### [facility] [address] [place] [address] Dr. Grzegorz Wang CO2 [Moles/Vol] 21.1 mmol/L Normal 21.0-32.0 [facility] Comment on above: Performed By: #### A BRAYDEN, LIPA #### [facility] [address] [place] [address] Dr. Grzegorz Wang Creatinine [Mass/Vol] 1.07 mg/dL Critically high 0.55-1.02 [facility] Comment on above: Performed By: #### A MY, LIPA #### [facility] [address] [place] [address] Dr. Grzegorz Wang EGFR-AF [place] >60 Normal >=60 [facility] Comment on above: Performed By: #### A MY, LIPA #### [facility] [address] [place] [address] Dr. Grzegorz Wang EGFR-NON AF [place] 50 mL/min/1.73m2 Critically low >=60 [facility] Comment on above: Performed By: #### A MY, LIPA #### [facility] [address] [place] [address] Dr. Grzegorz Wang Glucose [Mass/Vol] 90 mg/dL Normal 74-106 [facility] Comment on above: Performed By: #### A MY, LIPA #### [facility] [address] [place] [address] Dr. Grzegorz Wang Potassium [Moles/Vol] 3.5 mmol/L Normal 3.5-5.1 [facility] Comment on above: Performed By: #### A BRAYDEN LIPA #### [facility] [address] [place] [address] Dr. Grzegorz Wang Sodium [Moles/Vol] 145 mmol/L Normal 136-145 [facility] Comment on above: Performed By: #### A BRAYDEN LIPA #### [facility] [address] [place] [address] Dr. Grzegorz Wang Urea nitrogen [Mass/Vol] 59.0 mg/dL Critically high 7.0-18.0 [facility] Comment on above: Performed By: #### A BRAYDEN LIPA #### [facility] [address] [place] [address] Dr. Grzegorz Wang Urea nitrogen/Creatinine [Mass ratio] 55.1 mg/mg Normal [facility] Comment on above: Performed By: #### A BRAYDEN LIPA #### [facility] [address] [place] [address] Dr. Grzegorz Wang AMYLASEon 10-16-2021 Amylase [Catalytic activity/Vol] 41 U/L Normal 25-115 [facility] Comment on above: Performed By: #### A BRAYDEN LIPA #### [facility] [address] [place] [address] Dr. Grzegorz Wang CBC AUTO DIFFon 10-16-2021 BASO # 0.1 103/ul Normal 0.0-0.1 [facility] Comment on above: Performed By: #### A BRAYDEN LIPA #### [facility] [address] [place] [address] Dr. Grzegorz Wang Basophils/100 WBC (Bld) 0.7 % Normal 0.2-2.0 [facility] Comment on above: Performed By: #### A BRAYDEN LIPA #### [facility] [address] [place] [address] Dr. Grzegorz Wang EO # 0.2 103/ul Normal 0.0-0.7 [facility] Comment on above: Performed By: #### A BRAYDEN LIPA #### [facility] [address] [place] [address] Dr. Grzegorz Wang Eosinophils/100 WBC (Bld) 2.4 % Normal 0.9-7.[address] [facility] Comment on above: Performed By: #### A BRADYEN LIPA #### [facility] [address] [place] [address] Dr. Grzegorz Wang Erythrocyte distribution width (RBC) [Ratio] 17.1 % Critically high 11.0-15.[address] [facility] Comment on above: Performed By: #### A BRAYDEN, LIPA #### [facility] [address] [place] [address] Dr. Grzegorz Wang Hematocrit (Bld) [Volume fraction] 26.0 % Critically low 36.0-48.0 [facility] Comment on above: Performed By: #### A BRAYDEN LIPA #### [facility] [address] [place] [address] Dr. Grzegorz Wang Hemoglobin (Bld) [Mass/Vol] 8.4 g/dL Critically low 12.0-16.[address] [facility] Comment on above: Performed By: #### A BRAYDEN LIPA #### [facility] [address] [place] [address] Dr. Grzegorz Wang IG # 0.03 10e3/ul Normal 0.00-0.03 [facility] Comment on above: Performed By: #### A BRAYDEN LIPA #### [facility] [address] [place] [address] Dr. Grzegorz Wang IG % 0.4 % Normal 0.0-0.[address] [facility] Comment on above: Performed By: #### A BRAYDEN LIPA #### [facility] [address] [place] [address] Dr. Grzegorz Wang LYMPH # 1.9 103/ul Normal 1.2-3.[address] [facility] Comment on above: Performed By: #### A BRAYDEN, LIPA #### [facility] [address] [place] [address] Dr. Grzegorz Wang Lymphocytes/100 WBC (Bld) 27.3 % Normal 20.5-60.[address] [facility] Comment on above: Performed By: #### A MY, LIPA #### [facility] [address] [place] [address] Dr. Grzegorz Wang MANUAL DIFF REQ NO Normal [facility] Comment on above: Performed By: #### A MY, LIPA #### [facility] [address] [place] [address] Dr. Grzegorz Wang MCH (RBC) [Entitic mass] 26.0 pg Critically low 26.7-34.0 [facility] Comment on above: Performed By: #### A MY, LIPA #### [facility] [address] [place] [address] Dr. Grzegorz Wang MCHC (RBC) [Mass/Vol] 32.3 g/dL Normal 29.9-35.2 [facility] Comment on above: Performed By: #### A MY, LIPA #### [facility] [address] [place] [address] Dr. Grzegorz Wang MCV (RBC) [Entitic vol] 80.5 fL Critically low 81.0-99. 0 [facility] Comment on above: Performed By: #### A BRAYDEN LIPA #### [facility] [address] [place] [address] Dr. Grzegorz Wang MONO # 0.7 103/ul Normal 0.3-0.8 [facility] Comment on above: Performed By: #### A BRAYDEN LIPA #### [facility] [address] [place] [address] Dr. Grzegorz Wang Monocytes/100 WBC (Bld) 10.5 % Normal 1.7-12.0 [facility] Comment on above: Performed By: #### A BRAYDEN, LIPA #### [facility] [address] [place] [address] Dr. Grzegorz Wang NEUT # 4.1 103/ul Normal 1.4-6.5 [facility] Comment on above: Performed By: #### A BRAYDEN, LIPA #### [facility] [address] [place] [address] Dr. Grzegorz Wang Neutrophils/100 WBC (Bld) 58.7 % Normal 43.0-75.0 [facility] Comment on above: Performed By: #### A LUCHO OWENA #### [facility] [address] [place] [address] Dr. Grzegorz Wang Platelet mean volume (Bld) [Entitic vol] 10.4 fL Normal 9.5-13.5 [facility] Comment on above: Performed By: #### A BRAYDEN LIPA #### [facility] [address] [place] [address] Dr. Grzegorz Wang PLT 217 103/ul Normal 150-[address] [facility] Comment on above: Performed By: #### A BRAYDEN LIPA #### [facility] [address] [place] [address] Dr. Grzegorz Wang RBC 3.23 106/ul Critically low 4.20-5.40 [facility] Comment on above: Performed By: #### A BRAYDEN LIPA #### [facility] [address] [place] [address] Dr. Grzegorz Wang WBC 7.1 103/ul Normal 4.0-11.0 [facility] Comment on above: Performed By: #### A LUCHO OWENA #### [facility] [address] [place] [address] Dr. Grzegorz Wang BASO # 0.0 103/ul Normal 0.0-0.1 [facility] Comment on above: Performed By: #### C BC #### [facility] [address] [place] [address] Dr. Grzegorz Wnag Basophils/100 WBC (Bld) 0.5 % Normal 0.2-2.0 [facility] Comment on above: Performed By: #### C BC #### [facility] [address] [place] [address] Dr. Grzegorz Wang EO # 0.1 103/ul Normal 0.0-0.7 [facility] Comment on above: Performed By: #### C BC #### [facility] [address] [place] [address] Dr. Grzegorz Wang Eosinophils/100 WBC (Bld) 0.8 % Critically low 0.9-7.0 [facility] Comment on above: Performed By: #### C BC #### [facility] [address] [place] [address] Dr. Grzegorz Wang Erythrocyte distribution width (RBC) [Ratio] 16.8 % Critically high 11.0-15.0 [facility] Comment on above: Performed By: #### C BC #### [facility] [address] [place] [address] Dr. Grzegorz Wang Hematocrit (Bld) [Volume fraction] 19.5 % Critically low 36.0-48.0 [facility] Comment on above: Performed By: #### C BC #### [facility] [address] [place] [address] Dr. Grzegorz Wang Hemoglobin (Bld) [Mass/Vol] 6.0 g/dL Critically low 12.0-16.0 [facility] Comment on above: Result Comment: repe ated Performed By: #### C BC #### [facility] [address] [place] [address] Dr. Grzegorz Wang IG # 0.05 10e3/ul Critically high 0.00-0.03 [facility] Comment on above: Performed By: #### C BC #### [facility] [address] [place] [address] Dr. Grzegorz Wang IG % 0.6 % Critically high 0.0-0.5 [facility] Comment on above: Performed By: #### C BC #### [facility] [address] [place] [address] Dr. Grzegorz Wang LYMPH # 1.8 103/ul Normal 1.2-3.[address] [facility] Comment on above: Performed By: #### C BC #### [facility] [address] [place] [address] Dr. Grzegorz Wang Lymphocytes/100 WBC (Bld) 21.6 % Normal 20.5-60.0 [facility] Comment on above: Performed By: #### C BC #### [facility] [address] [place] [address] Dr. Grzegorz Wang MANUAL DIFF REQ NO Normal [facility] Comment on above: Performed By: #### C BC #### [facility] [address] [place] [address] Dr. Grzegorz Wang MCH (RBC) [Entitic mass] 23.4 pg Critically low 26.7-34.0 [facility] Comment on above: Performed By: #### C BC #### [facility] [address] [place] [address] Dr. Grzegorz Wang MCHC (RBC) [Mass/Vol] 30.6 g/dL Normal 29.9-35.2 [facility] Comment on above: Performed By: #### C BC #### [facility] [address] [place] [address] Dr. Grzegorz Wang MCV (RBC) [Entitic vol] 76.6 fL Critically low 81.0-99. 0 [facility] Comment on above: Performed By: #### C BC #### [facility] [address] [place] [address] Dr. Grzegorz Wang MONO # 0.6 103/ul Normal 0.3-0.8 [facility] Comment on above: Performed By: #### C BC #### [facility] [address] [place] [address] Dr. Grzegorz Wang Monocytes/100 WBC (Bld) 7.3 % Normal 1.7-12.0 [facility] Comment on above: Performed By: #### C BC #### [facility] [address] [place] [address] Dr. Grzegorz Wang NEUT # 5.9 103/ul Normal 1.4-6.5 [facility] Comment on above: Performed By: #### C BC #### [facility] [address] [place] [address] Dr. Grzegorz Wang Neutrophils/100 WBC (Bld) 69.2 % Normal 43.0-75.0 [facility] Comment on above: Performed By: #### C BC #### [facility] [address] [place] [address] Dr. Grzegorz Wang Platelet mean volume (Bld) [Entitic vol] 10.5 fL Normal 9.5-13.5 [facility] Comment on above: Performed By: #### C BC #### [facility] [address] [address] [address] Grzegorz Wang PLT 288 103/ul Normal 150-[address] [facility] Comment on above: Performed By: #### C BC #### [facility] [address] [address] [address] Grzegorz Wang RBC 2.52 106/ul Critically low 4.20-5.40 [facility] Comment on above: Performed By: #### C BC #### [facility] [address] [address] [address] Grzegorz Wang WBC 8.5 103/ul Normal 4.0-11.0 [facility] Comment on above: Performed By: #### C BC #### [facility] [address] ABD/PELVIS WO CONon [...] LYNN OLSON Date: 2021-10-16 13:[address] [facility] Covid-19 PCR ([facility])on SARS-CoV-2 (COVID-19) RNA SIOBHAN+probe Ql (Unsp spec) Not detected Normal NOT DETECTED [facility] Comment on above: Result Comment: When [...] for this test is supported by the [employer] of Health and Human Service's declaration that [...] used). Performed By: #### E RUR #### [facility] [address] [place] [address] Dr. Grzegorz Wang ER URINE PROFILEon 2 Bilirubin Ql (U) Negative Normal NEGATIVE [facility] Comment on above: Performed By: #### A BRAYDEN LIPA #### [facility] [address] [place] [address] Dr. Grzegorz Wang Clarity (U) CLEAR Normal CLEAR [facility] Comment on above: Performed By: #### A BRAYDEN LIPA #### [facility] [address] [place] [address] Dr. Grzegorz Wang Color (U) LT. YELLOW Normal YELLOW [facility] Comment on above: Performed By: #### A BRAYDEN LIPA #### [facility] [address] [place] [address] Dr. Grzegorz Wang ERUAHD A micrscopic examination will be performed if indicated. Normal [facility] Comment on above: Performed By: #### A BRAYDEN LIPA #### [facility] [address] [place] [address] Dr. Grzegorz Wang Glucose Ql (U) Negative Normal NEGATIVE [facility] Comment on above: Performed By: #### A MY, LIPA #### [facility] [address] [place] [address] Dr. Grzegorz Wang Hemoglobin Ql (U) SMALL Abnormal NEGATIVE [facility] Comment on above: Performed By: #### A MY, LIPA #### [facility] [address] [place] [address] Dr. Grzegorz Wang Ketones Ql (U) Negative Normal NEGATIVE [facility] Comment on above: Performed By: #### A MY, LIPA #### [facility] [address] [place] [address] Dr. Grzegorz Wang LEUKOCYTES TRACE Abnormal NEGATIVE [facility] Comment on above: Performed By: #### A BRAYDEN, LIPA #### [facility] [address] [place] [address] Dr. Grzegorz Wang Nitrite Ql (U) Negative Normal NEGATIVE [facility] Comment on above: Performed By: #### A BRAYDEN LIPA #### [facility] [address] [place] [address] Dr. Grzegorz Wang pH (U) 5.5 [pH] Normal 5-[address] [facility] Comment on above: Performed By: #### A BRAYDEN LIPA #### [facility] [address] [place] [address] Dr. Grzegorz Wang SPEC GRAVITY 1.005 Normal 1.005-<=1.0 25 [facility] Comment on above: Performed By: #### A BRAYDEN LIPA #### [facility] [address] [place] [address] Dr. Grzegorz Wang UA PROTEIN Negative Normal NEGATIVE/ TRACE [facility] Comment on above: Performed By: #### A BRAYDEN LIPA #### [facility] [address] [place] [address] Dr. Grzegorz Wang UR MICRO IND INDICATED Normal [facility] Comment on above: Performed By: #### A BRAYDEN, LIPA #### [facility] [address] [place] [address] Dr. Grzegorz Wang Urobilinogen Qn (U) 0.2 {Lidya'U}/dL Normal 0.2 - 1. 0 [facility] Comment on above: Performed By: #### A BRAYDEN LIPA #### [facility] [address] [place] [address] Dr. Grzegorz Wang LIPASEon 10-16-2021 Lipase [Catalytic activity/Vol] 77.0 U/L Normal 73.0-393.0 [facility] Comment on above: Performed By: #### A BRAYDEN LIPA #### [facility] [address] [place] [address] Dr. Grzegorz Wang OCC BLD IMMUNO SCREENon OCCULT BLOOD Positive Abnormal NEGATIVE [facility] Comment on above: Performed By: #### A BRAYDEN LIPA #### [facility] [address] [place] [address] Dr. Grzegorz Wang PROF 14(COMP METB)on 022 Albumin [Mass/Vol] 3.4 g/dL Normal 3.4-5.0 [facility] Comment on above: Performed By: #### C BC #### [facility] [address] [place] [address] Dr. Grzegorz Wang Albumin/Globulin [Mass ratio] 1.2 {ratio} Normal [facility] Comment on above: Performed By: #### C BC #### [facility] [address] [place] [address] Dr. Grzegorz Wang ALP [Catalytic activity/Vol] 77 U/L Normal 46-116 [facility] Comment on above: Performed By: #### C BC #### [facility] [address] [place] [address] Dr. Grzegorz Wang ALT [Catalytic activity/Vol] 18 U/L Normal 14-59 [facility] Comment on above: Performed By: #### C BC #### [facility] [address] [place] [address] Dr. Grzegorz Wang Anion gap [Moles/Vol] 15.3 mmol/L Normal [facility] Comment on above: Performed By: #### C BC #### [facility] [address] [place] [address] Dr. Grzegorz Wang AST [Catalytic activity/Vol] 17 U/L Normal 15-37 [facility] Comment on above: Performed By: #### C BC #### [facility] [address] [address] [address] Grzegorz Wang Bilirubin [Mass/Vol] 0.4 mg/dL Normal 0.2-1.0 [facility] Comment on above: Performed By: #### C BC #### [facility] [address] [address] [address] Grzegorz Wang Calcium [Mass/Vol] 8.5 mg/dL Normal 8.5-10.1 [facility] Comment on above: Performed By: #### C BC #### [facility] [address] [place] [address] Dr. Grzegorz Wang Chloride [Moles/Vol] 104 mmol/L Normal 98-107 [facility] Comment on above: Performed By: #### C BC #### [facility] [address] [place] [address] Dr. Grzegorz Wang CO2 [Moles/Vol] 21.2 mmol/L Normal 21.0-32.0 [facility] Comment on above: Performed By: #### C BC #### [facility] [address] [place] [address] Dr. Grzegorz Wang Creatinine [Mass/Vol] 1.68 mg/dL Critically high 0.55-1.02 [facility] Comment on above: Performed By: #### C BC #### [facility] [address] [place] [address] Dr. Grzegorz Wang EGFR-AF [place] 36 mL/min/1.73m2 Critically low >=60 [facility] Comment on above: Performed By: #### C BC #### [facility] [address] [place] [address] Dr. Grzegorz Wang EGFR-NON AF [place] 30 mL/min/1.73m2 Critically low >=60 [facility] Comment on above: Performed By: #### C BC #### [facility] [address] [place] [address] Dr. Grzegorz Wang Globulin (S) [Mass/Vol] 2.8 g/dL Normal [facility] Comment on above: Performed By: #### C BC #### [facility] [address] [place] [address] Dr. Grzegorz Wang Glucose [Mass/Vol] 101 mg/dL Normal 74-106 [facility] Comment on above: Performed By: #### C BC #### [facility] [address] [place] [address] Dr. Grzegorz Wang Potassium [Moles/Vol] 3.5 mmol/L Normal 3.5-5.1 [facility] Comment on above: Performed By: #### C BC #### [facility] [address] [place] [address] Dr. Grzegorz Wang Protein [Mass/Vol] 6.2 g/dL Critically low 6.4-8.2 [facility] Comment on above: Performed By: #### C BC #### [facility] [address] [place] [address] Dr. Grzegorz Wang Sodium [Moles/Vol] 137 mmol/L Normal 136-145 [facility] Comment on above: Performed By: #### C BC #### [facility] [address] [place] [address] Dr. Grzegorz Wang Urea nitrogen [Mass/Vol] 83.0 mg/dL Critically high 7.0-18.0 [facility] Comment on above: Result Comment: repe ated Performed By: #### C BC #### [facility] [address] [place] [address] Dr. Grzegorz Wang Urea nitrogen/Creatinine [Mass ratio] 49.4 mg/mg Normal [facility] Comment on above: Performed By: #### C BC #### [facility] [address] [place] [address] Dr. Grzegorz Wang PROTIMEon 10-16-2021 INR Coag (PPP) [Relative time] 0.99 {INR} Normal [facility] Comment on above: Performed By: #### P T, PTT #### [facility] [address] [place] [address] Dr. Grzegorz Wang INR GUIDELINES SEE BELOW Normal [facility] Comment on above: Result Comment: DENTON RED INR: 2.0 - 3.0 CONDITIONS NOT LISTED BELOW 2.5 - 3.5 FOR PROSTHETIC HEART VALVE REPLACEMENT 2.5 - 3.5 RECURRENT THROMBOSIS Performed By: #### P T, PTT #### [facility] [address] [place] [address] Dr. Grzegorz Wang PT Coag (PPP) [Time] 10.7 s Normal 9.0-11.6 [facility] Comment on above: Performed By: #### P T, PTT #### [facility] [address] [place] [address] Dr. Grzegorz Wang PTTon 10-16-2021 aPTT Coag (Bld) [Time] 23.5 s Normal 22.3-36.2 Th [facility] Comment on above: Performed By: #### P T, PTT #### [facility] [address] [place] [address] Dr. Grzegorz Wang TYPE AND SCREENon 10-16-2021 TYPE AND SCREEN Negative Normal [facility] Comment on above: Performed By: #### C BC #### [facility] [address] [place] [address] Dr. Grzegorz Wang URINE MICROSCOPIC ONLYon BACTERIA NONE SEEN Normal NONE SEEN [facility] Comment on above: Performed By: #### A MY, LIPA #### [facility] [address] [place] [address] Dr. Grzegorz Wang Bacteria identified Cx Nom (U) NOT INDICATED Normal [facility] Comment on above: Performed By: #### A MY, LIPA #### [facility] [address] [place] [address] Dr. Grzegorz Wang CAST NONE SEEN Normal NONE SEEN [facility] Comment on above: Performed By: #### A MY, LIPA #### [facility] [address] [place] [address] Dr. Grzegorz Wang Crystals LM Nom (Urine sed) NONE SEEN Normal NONE SEEN [facility] Comment on above: Performed By: #### A MY, LIPA #### [facility] [address] [place] [address] Dr. Grzegorz Wang Epithelial cells LM Ql (Urine sed) RARE Normal NONE SEEN /RARE [facility] Comment on above: Performed By: #### A BRAYDEN LIPA #### [facility] [address] [place] [address] Dr. Grzegorz Wang MUCOUS NONE SEEN Normal NONE SEEN [facility] Comment on above: Performed By: #### A MY, LIPA #### [facility] [address] [place] [address] Dr. Grzegorz Wang RBC NONE SEEN Abnormal 0-[address] [facility] Comment on above: Performed By: #### A BRAYDEN LIPA #### [facility] [address] [place] [address] Dr. Grzegorz Wang WBC NONE SEEN Normal NONE SEEN [facility] Comment on above: Performed By: #### A BRAYDEN LIPA #### [facility] [address] [place] [address] Dr. Grzegorz Wang BNPon 09-02-2021 Natriuretic peptide B (Bld) [Mass/Vol] 140.0 pg/mL Normal <=900.[address] [facility] Comment on above: Performed By: #### C BC #### [facility] [address] [place] [address] Dr. Grzegorz Wang CARDIAC BAMBI ADMITon 022 CK [Catalytic activity/Vol] 121 U/L Normal 26-[address] [facility] Comment on above: Performed By: #### C BC #### [facility] [address] [place] [address] Dr. Grzegorz Wang CK.MB [Mass/Vol] 2.44 ng/mL Normal <=3.60 [facility] Comment on above: Performed By: #### C BC #### [facility] [address] [place] [address] Dr. Grzegorz Wang HSTROP 9.8 pg/mL Normal 4.0-51.[address] [facility] Comment on above: Result Comment: CUT- OFF POINTS HAVE BEEN ESTABLISHED BASED ON THE FOURTH UNIVERSAL DEFINITIONS OF MYOCARDIAL INFARCTION. THE UPPER REFERENCE LIMIT (URL) OF TROPONIN, DEFINED THE 99TH PERCENTILE OF cTnI DISTRIBUTION IN A REFERENCE POPULATION, HAS BEEN CONFIRMED THE DECISION THRESHOLD FOR [place] DIAGNOSIS. Performed By: #### C BC #### [facility] [address] [place] [address] Dr. Grzegorz Wang MITZI 109 ng/mL Critically high 9-82 [facility] Comment on above: Performed By: #### C BC #### [facility] [address] [place] [address] Dr. Grzegorz Wang CBC AUTO DIFFon 09-02-2021 BASO # 0.0 103/ul Normal 0.0-0.1 [facility] Comment on above: Performed By: #### C BC #### [facility] [address] [place] [address] Dr. Grzegorz Wang Basophils/100 WBC (Bld) 0.5 % Normal 0.2-2.0 [facility] Comment on above: Performed By: #### C BC #### [facility] [address] [place] [address] Dr. Grzegorz Wang EO # 0.1 103/ul Normal 0.0-0.7 [facility] Comment on above: Performed By: #### C BC #### [facility] [address] [place] [address] Dr. Grzegorz Wang Eosinophils/100 WBC (Bld) 3.1 % Normal 0.9-7.0 [facility] Comment on above: Performed By: #### C BC #### [facility] [address] [place] [address] Dr. Grzegorz Wang Erythrocyte distribution width (RBC) [Ratio] 16.0 % Critically high 11.0-15.0 [facility] Comment on above: Performed By: #### C BC #### [facility] [address] [place] [address] Dr. Grzegorz Wang Hematocrit (Bld) [Volume fraction] 32.0 % Critically low 36.0-48.0 [facility] Comment on above: Performed By: #### C BC #### [facility] [address] [place] [address] Dr. Grzegorz Wang Hemoglobin (Bld) [Mass/Vol] 10.1 g/dL Critically low 12.0-16.0 [facility] Comment on above: Performed By: #### C BC #### [facility] [address] [place] [address] Dr. Grzegorz Wang IG # 0.01 10e3/ul Normal 0.00-0.03 [facility] Comment on above: Performed By: #### C BC #### [facility] [address] [place] [address] Dr. Grzegorz Wang IG % 0.3 % Normal 0.0-0.5 [facility] Comment on above: Performed By: #### C BC #### [facility] [address] [place] [address] Dr. Grzegorz Wang LYMPH # 1.7 103/ul Normal 1.2-3.8 [facility] Comment on above: Performed By: #### C BC #### [facility] [address] [place] [address] Dr. Grzegorz Wang Lymphocytes/100 WBC (Bld) 43.1 % Normal 20.5-60.0 [facility] Comment on above: Performed By: #### C BC #### [facility] [address] [place] [address] Dr. Grzegorz Wang MANUAL DIFF REQ NO Normal [facility] Comment on above: Performed By: #### C BC #### [facility] [address] [place] [address] Dr. Grzegorz Wang MCH (RBC) [Entitic mass] 23.9 pg Critically low 26.7-34.0 [facility] Comment on above: Performed By: #### C BC #### [facility] [address] [place] [address] Dr. Grzegorz Wang MCHC (RBC) [Mass/Vol] 31.6 g/dL Normal 29.9-35.2 [facility] Comment on above: Performed By: #### C BC #### [facility] [address] [place] [address] Dr. Grzegorz Wang MCV (RBC) [Entitic vol] 75.8 fL Critically low 81.0-99. 0 [facility] Comment on above: Performed By: #### C BC #### [facility] [address] [place] [address] Dr. Grzegorz Wang MONO # 0.4 103/ul Normal 0.3-0.8 [facility] Comment on above: Performed By: #### C BC #### [facility] [address] [place] [address] Dr. Grzegorz Wang Monocytes/100 WBC (Bld) 9.7 % Normal 1.7-12.0 [facility] Comment on above: Performed By: #### C BC #### [facility] [address] [place] [address] Dr. Grzegorz Wang NEUT # 1.7 103/ul Normal 1.4-6.5 [facility] Comment on above: Performed By: #### C BC #### [facility] [address] [place] [address] Dr. Grzegorz Wang Neutrophils/100 WBC (Bld) 43.3 % Normal 43.0-75.0 [facility] Comment on above: Performed By: #### C BC #### [facility] [address] [place] [address] Dr. Grzegorz Wang Platelet mean volume (Bld) [Entitic vol] 10.1 fL Normal 9.5-13.5 [facility] Comment on above: Performed By: #### C BC #### [facility] [address] [place] [address] Dr. Grzegorz Wang PLT 179 103/ul Normal 150-[address] [facility] Comment on above: Performed By: #### C BC #### [facility] [address] [place] [address] Dr. Grzegorz Wang RBC 4.22 106/ul Normal 4.20-5.40 [facility] Comment on above: Performed By: #### C BC #### [facility] [address] [place] [address] Dr. Grzegorz Wang WBC 3.8 103/ul Critically low 4.0-11.0 [facility] Comment on above: Performed By: #### C #### [facility] [address] [address] CSPINE WO CONon [...] JEAN-PIERRE GIRALDO Date: 2021-09-02 19:[address] [facility] CT STROKE HEAD WOon 09-03-19 22 [...] JEAN-PIERRE GIRALDO Date: 2021-09-02 19:[address] [facility] Covid-19 PCR ([facility])on 08-12 SARS-CoV-2 (COVID-19) RNA SIOBHAN+probe Ql (Unsp spec) Detected Critically abnormal NOT DETECTED [facility] Comment on above: Result Comment: This test is not yet approved or cleared by the [place] FDA. When there are no FDA-approved or cleared tests available, and other criteria are met, FDA can make tests available under an emergency access mechanism called an Emergency Use Authorization (EUA). The EUA for this test is supported by the Rail [employer] of Health and Human Service's declaration that [...] used). Performed By: #### C BC #### [facility] [address] [place] [address] Dr. Grzegorz Wang DRUG SCREEN RAPID (URINE)on 09-02-2021 AMP Negative Normal NEGATIVE [facility] Comment on above: Performed By: #### E RUR #### [facility] [address] [place] [address] Dr. Grzegorz Wang BAR Negative Normal NEGATIVE [facility] Comment on above: Performed By: #### E RUR #### [facility] [address] [place] [address] Dr. Grzegorz Wang BUP Negative Normal NEGATIVE [facility] Comment on above: Performed By: #### E RUR #### [facility] [address] [place] [address] Dr. Grzegorz Wang BZO Negative Normal NEGATIVE [facility] Comment on above: Performed By: #### E RUR #### [facility] [address] [place] [address] Dr. Grzegorz Wang MITZY Negative Normal NEGATIVE [facility] Comment on above: Performed By: #### E RUR #### [facility] [address] [place] [address] Dr. Grzegorz Wang CUT-OFFS SEE BELOW Normal [facility] Comment on above: Result Comment: AMP [...] ng/mL Performed By: #### E RUR #### [facility] [address] [place] [address] Dr. Grzegorz Wang DRUG CUT HEADER DRUG CLASS TEST SYSTEM CUT-OFF CONCENTRATIONS ARE FOLLOWS: Normal [facility] Comment on above: Performed By: #### E RUR #### [facility] [address] [place] [address] Dr. Grzegorz Wang mAMP Negative Normal NEGATIVE [facility] Comment on above: Performed By: #### E RUR #### [facility] [address] [place] [address] Dr. Grzegorz Wang MTD Negative Normal NEGATIVE [facility] Comment on above: Performed By: #### E RUR #### [facility] [address] [place] [address] Dr. Grzegorz Wang OPI Negative Normal NEGATIVE [facility] Comment on above: Performed By: #### E RUR #### [facility] [address] [place] [address] Dr. Grzegorz Wang OXY Negative Normal NEGATIVE [facility] Comment on above: Performed By: #### E RUR #### [facility] [address] [place] [address] Dr. Grzegorz Wang PCP Negative Normal NEGATIVE [facility] Comment on above: Performed By: #### E RUR #### [facility] [address] [place] [address] Dr. Grzegorz Wang PPX Negative Normal NEGATIVE [facility] Comment on above: Performed By: #### E RUR #### [facility] [address] [address] [address] Grzegorz Wang TCA Positive Abnormal NEGATIVE [facility] Comment on above: Performed By: #### E RUR #### [facility] [address] [place] [address] Dr. Grzegorz Wang THC Negative Normal NEGATIVE [facility] Comment on above: Performed By: #### E RUR #### [facility] [address] [place] [address] Dr. Grzegorz Wang LACTATE/LACTIC ACIDon 2021 Lactate [Moles/Vol] 0.7 mmol/L Normal 0.4-1.9 [facility] Comment on above: Performed By: #### E RUR #### [facility] [address] [place] [address] Dr. Grzegorz Wang PROF 14(COMP METB)on 022 Albumin [Mass/Vol] 3.1 g/dL Critically low 3.4-5.0 [facility] Comment on above: Performed By: #### C BC #### [facility] [address] [place] [address] Dr. Grzegorz Wang Albumin/Globulin [Mass ratio] 1.0 {ratio} Normal [facility] Comment on above: Performed By: #### C BC #### [facility] [address] [place] [address] Dr. Grzegorz Wang ALP [Catalytic activity/Vol] 81 U/L Normal 46-116 [facility] Comment on above: Performed By: #### C BC #### [facility] [address] [place] [address] Dr. Grzegorz Wang ALT [Catalytic activity/Vol] 21 U/L Normal 14-59 [facility] Comment on above: Performed By: #### C BC #### [facility] [address] [place] [address] Dr. Grzegorz Wang Anion gap [Moles/Vol] 11.9 mmol/L Normal [facility] Comment on above: Performed By: #### C BC #### [facility] [address] [place] [address] Dr. Grzegorz Wang AST [Catalytic activity/Vol] 21 U/L Normal 15-37 [facility] Comment on above: Performed By: #### C BC #### [facility] [address] [place] [address] Dr. Grzegorz Wang Bilirubin [Mass/Vol] 0.5 mg/dL Normal 0.2-1.0 [facility] Comment on above: Performed By: #### C BC #### [facility] [address] [place] [address] Dr. Grzegorz Wang Calcium [Mass/Vol] 8.3 mg/dL Critically low 8.5-10.1 Th [facility] Comment on above: Performed By: #### C BC #### [facility] [address] [place] [address] Dr. Grzegorz Wang Chloride [Moles/Vol] 100 mmol/L Normal 98-107 [facility] Comment on above: Performed By: #### C BC #### [facility] [address] [place] [address] Dr. Grzegorz Wang CO2 [Moles/Vol] 25.6 mmol/L Normal 21.0-32.0 [facility] Comment on above: Performed By: #### C BC #### [facility] [address] [place] [address] Dr. Grzegorz Wang Creatinine [Mass/Vol] 1.39 mg/dL Critically high 0.55-1.02 [facility] Comment on above: Performed By: #### C BC #### [facility] [address] [place] [address] Dr. Grzegorz Wang EGFR-AF [place] 45 mL/min/1.73m2 Critically low >=[address] [facility] Comment on above: Performed By: #### C BC #### [facility] [address] [place] [address] Dr. Grzegorz Wang EGFR-NON AF [place] 37 mL/min/1.73m2 Critically low >=60 [facility] Comment on above: Performed By: #### C BC #### [facility] [address] [place] [address] Dr. Grzegorz Wang Globulin (S) [Mass/Vol] 3.1 g/dL Normal [facility] Comment on above: Performed By: #### C BC #### [facility] [address] [address] [address] Grzegorz Wang Glucose [Mass/Vol] 96 mg/dL Normal 74-106 [facility] Comment on above: Performed By: #### C BC #### [facility] [address] [address] [address] Grzegorz Wang Potassium [Moles/Vol] 3.5 mmol/L Normal 3.5-5.1 [facility] Comment on above: Performed By: #### C BC #### [facility] [address] [place] [address] Dr. Grzegorz Wang Protein [Mass/Vol] 6.2 g/dL Critically low 6.4-8.2 Th [facility] Comment on above: Performed By: #### C BC #### [facility] [address] [place] [address] Dr. Grzegorz Wang Sodium [Moles/Vol] 134 mmol/L Critically low 136-145 [facility] Comment on above: Performed By: #### C BC #### [facility] [address] [place] [address] Dr. Grzegorz Wang Urea nitrogen [Mass/Vol] 33.0 mg/dL Critically high 7.0-18.0 [facility] Comment on above: Performed By: #### C BC #### [facility] [address] [place] [address] Dr. Grzegorz Wang Urea nitrogen/Creatinine [Mass ratio] 23.7 mg/mg Normal [facility] Comment on above: Performed By: #### C BC #### [facility] [address] [place] [address] Dr. Grzegorz Wang PROTIMEon 09-02-2021 INR Coag (PPP) [Relative time] {INR} Normal [facility] Comment on above: Performed By: #### A LUCHO OWENA #### [facility] [address] [place] [address] Dr. Grzegorz Wang INR GUIDELINES SEE BELOW Normal [facility] Comment on above: Result Comment: DENTON RED INR: 2.0 - 3.0 CONDITIONS NOT LISTED BELOW 2.5 - 3.5 FOR PROSTHETIC HEART VALVE REPLACEMENT 2.5 - 3.5 RECURRENT THROMBOSIS Performed By: #### A PHIL OWEN #### [facility] [address] [address] [address] Grzegorz Wang PT Coag (PPP) [Time] 10.0 s Normal 9.0-11.6 [facility] Comment on above: Performed By: #### A PHIL OWEN #### [facility] [address] [place], [place] [address] Dr. Grzegorz Wang PTTon 09-02-2021 aPTT Coag (Bld) [Time] 32.1 s Normal 22.3-36.2 Th [facility] Comment on above: Performed By: #### A PHIL OWEN #### [facility] [address] [place], [place] [address] Dr. Grzegorz Wang XR CHEST 1 Von [...] NATACHA CERNA Date: 2021-09-02 19:[address] [facility] XR hand RT min 3V*on 022 XR hand RT min 3V* [facility] [employer] Other XR hand RT min 3V* [facility] [employer] Other XR hand RT min 3V* [address] [place] [address] [employer] Other XR hand RT min 3V* [place] [address] [employer] [facility] [employer] Other XR hand RT min 3V* XRay Report [employer] Other XR hand RT min 3V* Signed [employer] Other XR hand RT min 3V* Patient: Ozzie Gifford MR#: [id number] [employer] Other XR hand RT min 3V* [id number] [employer] Other XR hand RT min 3V* : 1950 Acct:[id number] [employer] Other XR hand RT min 3V* Age/Sex: 71 / F ADM Date: 08/02/21 [employer] Other XR hand RT min 3V* [place] [facility] [place]: Type : [facility] [employer] Other XR hand RT min 3V* Attending Dr: Neeraj Arrington MD [employer] Other XR hand RT min 3V* Copies to: Susie Arrington MD [employer] Other XR hand RT min 3V* Ordering Provider: Susie Arrington MD [employer] Other XR hand RT min 3V* Date of Service: 08/02/21 [employer] Other XR hand RT min 3V* XR/XR hand RT min 3V*: Closed nondisplaced fracture of proximal phalanx [employer] Other XR hand RT min 3V* of right mi [employer] Other XR hand RT min 3V* 4 viewsRIGHT hand plain film [employer] Other XR hand RT min 3V* COMPARISON:07/12/21 [employer] Other XR hand RT min 3V* HISTORY:Status post RIGHT long finger proximal phalanx fracture [employer] Other XR hand RT min 3V* No bony alignment stable. No interval healing. Extensive degeneration. [employer] Other XR hand RT min 3V* XR/XR hand RT min 3V* [employer] Other XR hand RT min 3V* IMPRESSION:Stable findings [employer] Other XR hand RT min 3V* Impression dictated by: Husam Martinez M.D.08/02/2021 12:13 PM [employer] Other XR hand RT min 3V* Dictation Location: [facility]-- [employer] Other XR hand RT min 3V* Transcribed By: PWS 08/02/21 1213 [employer] Other XR hand RT min 3V* Dictated By: Husam Martinez DO 08/02/21 [facility] [employer] Other XR hand RT min 3V* Signed By: [employer] Other XR hand RT min 3V* 08/02/21 1213 [facility] [employer] Other BNPon 07-29-2021 Natriuretic peptide B (Bld) [Mass/Vol] 192.0 pg/mL Normal <=900.0 [facility] Comment on above: Performed By: #### E RUR #### [facility] [address] [place] [address] Dr. Grzegorz Wang CARDIAC BAMBI ADMITon 022 CK [Catalytic activity/Vol] 82 U/L Normal 26-[address] [facility] Comment on above: Performed By: #### E RUR #### [facility] [address] [address] [address] Grzegorz Wang CK.MB [Mass/Vol] 2.40 ng/mL Normal <=3.60 [facility] Comment on above: Performed By: #### E RUR #### [facility] [address] [place] [address] Dr. Grzegorz Wang HSTROP 4.7 pg/mL Normal 4.0-51.[address] [facility] Comment on above: Result Comment: CUT- OFF POINTS HAVE BEEN ESTABLISHED BASED ON THE FOURTH UNIVERSAL DEFINITIONS OF MYOCARDIAL INFARCTION. THE UPPER REFERENCE LIMIT (URL) OF TROPONIN, DEFINED THE 99TH PERCENTILE OF cTnI DISTRIBUTION IN A REFERENCE POPULATION, HAS BEEN CONFIRMED THE DECISION THRESHOLD FOR [place] DIAGNOSIS. Performed By: #### E RUR #### [facility] [address] [place] [address] Dr. Grzegorz Wang MITZI 70 ng/mL Normal 9-[address] [facility] Comment on above: Performed By: #### E RUR #### [facility] [address] [place] [address] Dr. Grzegorz Wang CBC AUTO DIFFon 07-29-2021 BASO # 0.0 103/ul Normal 0.0-0.1 [facility] Comment on above: Performed By: #### E RUR #### [facility] [address] [place] [address] Dr. Grzegorz Wang Basophils/100 WBC (Bld) 0.7 % Normal 0.2-2.0 [facility] Comment on above: Performed By: #### E RUR #### [facility] [address] [place] [address] Dr. Grzegorz Wang EO # 0.2 103/ul Normal 0.0-0.7 [facility] Comment on above: Performed By: #### E RUR #### [facility] [address] [place] [address] Dr. Grzegorz Wang Eosinophils/100 WBC (Bld) 4.1 % Normal 0.9-7.0 [facility] Comment on above: Performed By: #### E RUR #### [facility] [address] [place] [address] Dr. Grzegorz Wang Erythrocyte distribution width (RBC) [Ratio] 15.7 % Critically high 11.0-15.0 [facility] Comment on above: Performed By: #### E RUR #### [facility] [address] [place] [address] Dr. Grzegorz Wang Hematocrit (Bld) [Volume fraction] 32.6 % Critically low 36.0-48.0 [facility] Comment on above: Performed By: #### E RUR #### [facility] [address] [address] [address] Grzegorz Wang Hemoglobin (Bld) [Mass/Vol] 9.9 g/dL Critically low 12.0-16.0 [facility] Comment on above: Performed By: #### E RUR #### [facility] [address] [address] [address] Grzegorz Wang IG # 0.02 10e3/ul Normal 0.00-0.[address] [facility] Comment on above: Performed By: #### E RUR #### [facility] [address] [place] [address] Dr. Grzegorz Wang IG % 0.3 % Normal 0.0-0.[address] [facility] Comment on above: Performed By: #### E RUR #### [facility] [address] [place] [address] Dr. Grzegorz Wang LYMPH # 1.7 103/ul Normal 1.2-3.[address] [facility] Comment on above: Performed By: #### E RUR #### [facility] [address] [place] [address] Dr. Grzegorz Wang Lymphocytes/100 WBC (Bld) 28.0 % Normal 20.5-60.[address] [facility] Comment on above: Performed By: #### E RUR #### [facility] [address] [place] [address] Dr. Grzegorz Wang MANUAL DIFF REQ NO Normal [facility] Comment on above: Performed By: #### E RUR #### [facility] [address] [place] [address] Dr. Grzegorz Wang MCH (RBC) [Entitic mass] 23.9 pg Critically low 26.7-34.[address] [facility] Comment on above: Performed By: #### E RUR #### [facility] [address] [place] [address] Dr. Grzegorz Wang MCHC (RBC) [Mass/Vol] 30.4 g/dL Normal 29.9-35.[address] [facility] Comment on above: Performed By: #### E RUR #### [facility] [address] [address] [address] Grzegorz Wang MCV (RBC) [Entitic vol] 78.7 fL Critically low 81.0-99. 0 [facility] Comment on above: Performed By: #### E RUR #### [facility] [address] [place] [address] Dr. Grzegorz Wang MONO # 0.6 103/ul Normal 0.3-0.8 [facility] Comment on above: Performed By: #### E RUR #### [facility] [address] [place] [address] Dr. Grzegorz Wang Monocytes/100 WBC (Bld) 10.4 % Normal 1.7-12.0 [facility] Comment on above: Performed By: #### E RUR #### [facility] [address] [place] [address] Dr. Grzegorz Wang NEUT # 3.3 103/ul Normal 1.4-6.5 [facility] Comment on above: Performed By: #### E RUR #### [facility] [address] [place] [address] Dr. Grzegorz Wang Neutrophils/100 WBC (Bld) 56.5 % Normal 43.0-75.0 [facility] Comment on above: Performed By: #### E RUR #### [facility] [address] [place] [address] Dr. Grzegorz Wang Platelet mean volume (Bld) [Entitic vol] 10.2 fL Normal 9.5-13.5 [facility] Comment on above: Performed By: #### E RUR #### [facility] [address] [place] [address] Dr. Grzegorz Wang PLT 216 103/ul Normal 150-[address] [facility] Comment on above: Performed By: #### E RUR #### [facility] [address] [place] [address] Dr. Grzegorz Wang RBC 4.14 106/ul Critically low 4.20-5.40 [facility] Comment on above: Performed By: #### E RUR #### [facility] [address] [place] [address] Dr. Grzegorz Wang WBC 5.9 103/ul Normal 4.0-11.0 [facility] Comment on above: Performed By: #### E RUR #### [facility] [address] [place] [address] HEAD WO CONon [...] DORIAN GREENE Date: 2021-07-29 15:[address] [facility] ER URINE PROFILEon 2 Bilirubin Ql (U) Negative Normal NEGATIVE [facility] Comment on above: Performed By: #### E RUR #### [facility] [address] [place] [address] Dr. Grzegorz Wang Clarity (U) CLEAR Normal CLEAR [facility] Comment on above: Performed By: #### E RUR #### [facility] [address] [place] [place] [address] Dr. Grzegorz Wang Color (U) LT. YELLOW Normal YELLOW [facility] Comment on above: Performed By: #### E RUR #### [facility] [address] [place] [address] Dr. Grzegorz Wang ERUAHD A micrscopic examination will be performed if indicated. Normal [facility] Comment on above: Performed By: #### E RUR #### [facility] [address] [place] [address] Dr. Grzegorz Wang Glucose Ql (U) Negative Normal NEGATIVE [facility] Comment on above: Performed By: #### E RUR #### [facility] [address] [place] [address] Dr. Grzegorz Wang Hemoglobin Ql (U) Negative Normal NEGATIVE [facility] Comment on above: Performed By: #### E RUR #### [facility] [address] [place] [address] Dr. Grzegorz Wang Ketones Ql (U) Negative Normal NEGATIVE [facility] Comment on above: Performed By: #### E RUR #### [facility] [address] [place] [address] Dr. Grzegorz Wang LEUKOCYTES Negative Normal NEGATIVE [facility] Comment on above: Performed By: #### E RUR #### [facility] [address] [place] [address] Dr. Grzegorz Wang Nitrite Ql (U) Negative Normal NEGATIVE [facility] Comment on above: Performed By: #### E RUR #### [facility] [address] [place] [address] Dr. Grzegorz Wang pH (U) 5.5 [pH] Normal 5-9 [facility] Comment on above: Performed By: #### E RUR #### [facility] [address] [place] [address] Dr. Grzegorz Wang SPEC GRAVITY 1.010 Normal 1.005-<=1.0 25 [facility] Comment on above: Performed By: #### E RUR #### [facility] [address] [place] [address] Dr. Grzegorz Wang UA PROTEIN Negative Normal NEGATIVE/ TRACE [facility] Comment on above: Performed By: #### E RUR #### [facility] [address] [place] [address] Dr. Grzegorz Wang UR MICRO IND NOT INDICATED Normal [facility] Comment on above: Performed By: #### E RUR #### [facility] [address] [place] [address] Dr. Grzegorz Wang Urobilinogen Qn (U) 0.2 {Lidya'U}/dL Normal 0.2 - 1. 0 [facility] Comment on above: Performed By: #### E RUR #### [facility] [address] [place] [address] Dr. Grzegorz Wang PROF 14(COMP METB)on 022 Albumin [Mass/Vol] 3.1 g/dL Critically low 3.4-5.0 [facility] Comment on above: Performed By: #### E RUR #### [facility] [address] [place] [address] Dr. Grzegorz Wang Albumin/Globulin [Mass ratio] 1.0 {ratio} Normal [facility] Comment on above: Performed By: #### E RUR #### [facility] [address] [place] [address] Dr. Grzegorz Wang ALP [Catalytic activity/Vol] 99 U/L Normal 46-116 [facility] Comment on above: Performed By: #### E RUR #### [facility] [address] [place] [address] Dr. Grzegorz Wang ALT [Catalytic activity/Vol] 18 U/L Normal 14-59 [facility] Comment on above: Performed By: #### E RUR #### [facility] [address] [place] [address] Dr. Grzegorz Wang Anion gap [Moles/Vol] 10.5 mmol/L Normal [facility] Comment on above: Performed By: #### E RUR #### [facility] [address] [place] [address] Dr. Grzegorz Wang AST [Catalytic activity/Vol] 14 U/L Critically low 15-37 [facility] Comment on above: Performed By: #### E RUR #### [facility] [address] [place] [address] Dr. Grzegorz Wang Bilirubin [Mass/Vol] 0.3 mg/dL Normal 0.2-1.0 [facility] Comment on above: Performed By: #### E RUR #### [facility] [address] [place] [address] Dr. Grzegorz Wang Calcium [Mass/Vol] 8.5 mg/dL Normal 8.5-10.1 [facility] Comment on above: Performed By: #### E RUR #### [facility] [address] [place] [address] Dr. Grzgeorz Wang Chloride [Moles/Vol] 108 mmol/L Critically high 98-107 [facility] Comment on above: Performed By: #### E RUR #### [facility] [address] [place] [address] Dr. Grzegorz Wang CO2 [Moles/Vol] 26.0 mmol/L Normal 21.0-32.0 [facility] Comment on above: Performed By: #### E RUR #### [facility] [address] [address] [address] Grzegorz Wang Creatinine [Mass/Vol] 1.07 mg/dL Critically high 0.55-1.02 [facility] Comment on above: Performed By: #### E RUR #### [facility] [address] [place] [address] Dr. Grzegorz Wang EGFR-AF [place] ISLANDER >60 Normal >=60 [facility] Comment on above: Performed By: #### E RUR #### [facility] [address] [place] [address] Dr. Grzegorz Wang EGFR-NON AF [place] 50 mL/min/1.73m2 Critically low >=60 [facility] Comment on above: Performed By: #### E RUR #### [facility] [address] [place] [address] Dr. Grzegorz Wang Globulin (S) [Mass/Vol] 3.0 g/dL Normal [facility] Comment on above: Performed By: #### E RUR #### [facility] [address] [place] [address] Dr. Grzegorz Wang Glucose [Mass/Vol] 87 mg/dL Normal 74-106 [facility] Comment on above: Performed By: #### E RUR #### [facility] [address] [place] [address] Dr. Grzegorz Wang Potassium [Moles/Vol] 3.5 mmol/L Normal 3.5-5.1 [facility] Comment on above: Performed By: #### E RUR #### [facility] [address] [place] [address] Dr. Grzegorz Wang Protein [Mass/Vol] 6.1 g/dL Critically low 6.4-8.2 Th [facility] Comment on above: Performed By: #### E RUR #### [facility] [address] [place] [address] Dr. Grzegorz Wang Sodium [Moles/Vol] 141 mmol/L Normal 136-145 [facility] Comment on above: Performed By: #### E RUR #### [facility] [address] [address] [address] Grzegorz Wang Urea nitrogen [Mass/Vol] 22.0 mg/dL Critically high 7.0-18.0 [facility] Comment on above: Performed By: #### E RUR #### [facility] [address] [place] [address] Dr. Grzegorz Wang Urea nitrogen/Creatinine [Mass ratio] 20.6 mg/mg Normal [facility] Comment on above: Performed By: #### E RUR #### [facility] [address] [place] [address] Dr. Grzegorz Wang PROTIMEon 07-29-2021 INR Coag (PPP) [Relative time] 0.99 {INR} Normal [facility] Comment on above: Performed By: #### P TT, PT #### [facility] [address] [place] [address] Dr. Grzegorz Wang INR GUIDELINES SEE BELOW Normal [facility] Comment on above: Result Comment: DENTON RED INR: 2.0 - 3.0 CONDITIONS NOT LISTED BELOW 2.5 - 3.5 FOR PROSTHETIC HEART VALVE REPLACEMENT 2.5 - 3.5 RECURRENT THROMBOSIS Performed By: #### P TT, PT #### [facility] [address] [place] [address] Dr. Grzegorz Wang PT Coag (PPP) [Time] 10.7 s Normal 9.0-11.6 [facility] Comment on above: Performed By: #### P TT, PT #### [facility] [address] [place] [address] Dr. Grzegorz Wang PTTon 07-29-2021 aPTT Coag (Bld) [Time] 31.0 s Normal 22.3-36.[address] [facility] Comment on above: Performed By: #### P TT, PT #### [facility] [address] [address] [address] Grzegorz Wang XR CHEST 1 Von [...] NATACHA TO Date: 2021-07-29 14:[address] [facility] XR hand RT min 3V*on 022 XR hand RT min 3V* [facility] [employer] Other XR hand RT min 3V* [facility] [employer] Other XR hand RT min 3V* [address] [place] [address] [employer] Other XR hand RT min 3V* [place] [address] [employer] Other XR hand RT min 3V* XRay Report [employer] Other XR hand RT min 3V* Signed [employer] Other XR hand RT min 3V* Patient: Ozzie Gifford MR#: [id number] [employer] Other XR hand RT min 3V* [id number] [employer] Other XR hand RT min 3V* : 1950 Acct:[id number] [employer] Other XR hand RT min 3V* Age/Sex: 71 / F ADM Date: 07/12/21 [employer] Other XR hand RT min 3V* Loc: SOXD Room: Type : [facility] [employer] Other XR hand RT min 3V* Attending Dr: Neeraj Arrington MD [employer] Other XR hand RT min 3V* Ordering Provider: Susie Arrington MD [employer] Other XR hand RT min 3V* Date of Service: 07/12/21 [employer] Other XR hand RT min 3V* XR/XR hand RT min 3V*: Right hand pain [employer] Other XR hand RT min 3V* Copies to: Susie Arrington MD [employer] Other XR hand RT min 3V* XR hand RT min 3V* 07/12/2021 10:43 AM [employer] Other XR hand RT min 3V* SIGNS AND SYMPTOMS: Fall, pain in right hand greatest in the right thumb with swelling [employer] Other XR hand RT min 3V* PROTOCOL: Frontal, lateral, and oblique radiographs of the right hand [employer] Other XR hand RT min 3V* COMPARISON: None [employer] Other XR hand RT min 3V* FINDINGS: [employer] Other XR hand RT min 3V* There is mild narrowing of the distal interphalangeal joints. There is a mild flexion deformity of [employer] Other XR hand RT min 3V* the fifth proximal interphalangeal joint. There is mild narrowing of the first metacarpophalangeal [employer] Other XR hand RT min 3V* junction with mild t o moderate degenerative change at the first carpometacarpal joint. There is no [employer] Other XR hand RT min 3V* evidence of acute displaced fracture. No evidence of dislocation. [employer] Other XR hand RT min 3V* XR/XR hand RT min 3V* [employer] Other XR hand RT min 3V* IMPRESSION: [employer] Other XR hand RT min 3V* No evidence of fracture. [employer] Other XR hand RT min 3V* Degenerative changes are noted, greatest in the thumb. [employer] Other XR hand RT min 3V* There is a mild flexion deformity of the fifth proximal interphalangeal joint. [employer] Other XR hand RT min 3V* Impression dictated by: Bambi Sung M.D.07/12/2021 12:29 PM [employer] Other XR hand RT min 3V* Dictation Location: [place] [address] [employer] Other XR hand RT min 3V* Transcribed By: SHYANN 07/12/21 122 [employer] Other XR hand RT min 3V* Dictated By: Bambi Sung II, MD 07/12/21 [facility] [employer] Other XR hand RT min 3V* Signed By: [employer] Other XR hand RT min 3V* 07/12/[address] [place] [address] [employer] Other CBC AUTO DIFFon 05-08-2021 BASO # 0.1 103/ul Normal 0.0-0.1 [facility] Comment on above: Performed By: #### C BC #### [facility] [address] [place] [address] Dr. Grzegorz Wang Basophils/100 WBC (Bld) 0.8 % Normal 0.2-2.0 [facility] Comment on above: Performed By: #### C BC #### [facility] [address] [place] [address] Dr. Grzegorz Wang EO # 0.3 103/ul Normal 0.0-0.7 [facility] Comment on above: Performed By: #### C BC #### [facility] [address] [place] [address] Dr. Grzegorz Wang Eosinophils/100 WBC (Bld) 3.8 % Normal 0.9-7.0 [facility] Comment on above: Performed By: #### C BC #### [facility] [address] [place] [address] Dr. Grzegorz Wang Erythrocyte distribution width (RBC) [Ratio] 14.1 % Normal 11.0-15.0 [facility] Comment on above: Performed By: #### C BC #### [facility] [address] [place] [address] Dr. Grzegorz Wang Hematocrit (Bld) [Volume fraction] 34.4 % Critically low 36.0-48.0 [facility] Comment on above: Performed By: #### C BC #### [facility] [address] [place] [address] Dr. Grzegorz Wang Hemoglobin (Bld) [Mass/Vol] 10.4 g/dL Critically low 12.0-16.0 [facility] Comment on above: Performed By: #### C BC #### [facility] [address] [place] [address] Dr. Grzegorz Wang IG # 0.04 10e3/ul Critically high 0.00-0.03 [facility] Comment on above: Performed By: #### C BC #### [facility] [address] [place] [address] Dr. Grzegorz Wang IG % 0.5 % Normal 0.0-0.5 [facility] Comment on above: Performed By: #### C BC #### [facility] [address] [place] [address] Dr. Grzegorz Wang LYMPH # 1.7 103/ul Normal 1.2-3.8 [facility] Comment on above: Performed By: #### C BC #### [facility] [address] [place] [address] Dr. Grzegorz Wang Lymphocytes/100 WBC (Bld) 22.1 % Normal 20.5-60.0 [facility] Comment on above: Performed By: #### C BC #### [facility] [address] [place] [address] Dr. Grzegorz Wang MANUAL DIFF REQ NO Normal [facility] Comment on above: Performed By: #### C BC #### [facility] [address] [place] [address] Dr. Grzegorz Wang MCH (RBC) [Entitic mass] 25.6 pg Critically low 26.7-34.0 [facility] Comment on above: Performed By: #### C BC #### [facility] [address] [place] [address] Dr. Grzegorz Wang MCHC (RBC) [Mass/Vol] 30.2 g/dL Normal 29.9-35.2 [facility] Comment on above: Performed By: #### C BC #### [facility] [address] [place] [address] Dr. Grzegorz Wang MCV (RBC) [Entitic vol] 84.5 fL Normal 81.0-99.0 [facility] Comment on above: Performed By: #### C BC #### [facility] [address] [place] [address] Dr. Grzegorz Wang MONO # 0.8 103/ul Normal 0.3-0.8 [facility] Comment on above: Performed By: #### C BC #### [facility] [address] [place] [address] Dr. Grzegorz Wang Monocytes/100 WBC (Bld) 11.1 % Normal 1.7-12.0 [facility] Comment on above: Performed By: #### C BC #### [facility] [address] [place] [address] Dr. Grzegorz Wang NEUT # 4.7 103/ul Normal 1.4-6.5 [facility] Comment on above: Performed By: #### C BC #### [facility] [address] [place] [address] Dr. Grzegorz Wang Neutrophils/100 WBC (Bld) 61.7 % Normal 43.0-75.0 [facility] Comment on above: Performed By: #### C BC #### [facility] [address] [address] [address] Grzegorz Wang Platelet mean volume (Bld) [Entitic vol] 10.6 fL Normal 9.5-13.5 [facility] Comment on above: Performed By: #### C BC #### [facility] [address] [address] [address] Grzegorz Wang PLT 281 103/ul Normal 150-450 [facility] Comment on above: Performed By: #### C BC #### [facility] [address] [address] [address] Grzegorz Wang RBC 4.07 106/ul Critically low 4.20-5.40 [facility] Comment on above: Performed By: #### C BC #### [facility] [address] [address] [address] Grzegorz Wang WBC 7.6 103/ul Normal 4.0-11.0 [facility] Comment on above: Performed By: #### C BC #### [facility] [id number] Grzegorz Wang CT CHEST WO CONon [...] LUCI MARADIAGA Date: 2021-05-08 18:[address] [facility] CT HEAD WO CONon 05-08-2021 CT [...] MITZI LOWRY Date: 2021-05-08 17:[address] [facility] CT NECK ST WO CONon 05-09-19 [...] The parotid glands, parapharyngeal spaces and left panel machine tender spaces appear normal. A tiny amount of air in the venous system in the right parapharyngeal space and in the venous system of the right panel machine tender space. A tiny amount air in probably [...] space and venous system in the right panel machine tender space, likely iatrogenic. No abnormal fluid collection. Prior right carotid endarterectomy. 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 Electronically authenticated by: BASIM CABAN Date: 2021-05-08 19:[address] [facility] PROF CHEM 8 (BAS METB)on Anion gap [Moles/Vol] 12.3 mmol/L Normal Th [facility] Comment on above: Performed By: #### A PHIL OWEN #### [facility] [address] [place] [address] Dr. Grzegorz Wang Calcium [Mass/Vol] 8.4 mg/dL Critically low 8.5-10.1 [facility] Comment on above: Performed By: #### A PHIL OWEN #### [facility] [address] [address] [address] Grzegorz Wang Chloride [Moles/Vol] 108 mmol/L Critically high 98-107 [facility] Comment on above: Performed By: #### A PHIL OWEN #### [facility] [address] [place] [address] Dr. Grzegorz Wang CO2 [Moles/Vol] 25.9 mmol/L Normal 22.0-30.0 [facility] Comment on above: Performed By: #### A BRAYDEN LIPA #### [facility] [address] [address] [address] Grzegorz Wang Creatinine [Mass/Vol] 1.18 mg/dL Critically high 0.52-1.04 [facility] Comment on above: Performed By: #### A MY, LIPA #### [facility] [address] [address] [address] Grzegorz Wang EGFR-AF [place]ER 55 mL/min/1.73m2 Critically low >=[address] [facility] Comment on above: Performed By: #### A BRAYDEN LIPA #### [facility] [address] [place] [address] Dr. Grzegorz Wang EGFR-NON AF [place]ER 45 mL/min/1.73m2 Critically low >=[address] [facility] Comment on above: Performed By: #### A BRAYDEN LIPA #### [facility] [address] [place] [address] Dr. Grzegorz Wang Glucose [Mass/Vol] 84 mg/dL Normal 74-106 [facility] Comment on above: Performed By: #### A BRAYDEN LIPA #### [facility] [address] [place] [address] Dr. Grzegorz Wang Potassium [Moles/Vol] 3.2 mmol/L Critically low 3.4-5.0 [facility] Comment on above: Performed By: #### A BRAYDEN LIPA #### [facility] [address] [place] [address] Dr. Grzegorz Wang Sodium [Moles/Vol] 143 mmol/L Normal 137-145 [facility] Comment on above: Performed By: #### A MY, LIPA #### [facility] [address] [place] [address] Dr. Grzegorz Wang Urea nitrogen [Mass/Vol] 35.0 mg/dL Critically high 7.0-18.[address] [facility] Comment on above: Performed By: #### A BRAYDEN LIPA #### [facility] [address] [place], [place] [address] Dr. Grzegorz Wang Urea nitrogen/Creatinine [Mass ratio] 29.7 mg/mg Normal [facility] Comment on above: Performed By: #### A PHIL OWEN #### [facility] [address] [place], [place] [address] Dr. Grzegorz Wang XR PELVIS 1_2 VIEWSon [...] LUCI MARADIAGA Date: 2021-05-08 17:[address] [facility] XR wrist LT min 3V*on 2021 XR wrist LT min 3V* [facility] [employer] Other XR wrist LT min 3V* [facility] [employer] Other XR wrist LT min 3V* [address] [place] [address] [employer] Other XR wrist LT min 3V* [place] [address] [place] [employer] Other XR wrist LT min 3V* XRay Report [facility] [employer] Other XR wrist LT min 3V* Signed [employer] Other XR wrist LT min 3V* Patient: Ozzie Gifford MR#: [id number] [employer] Other XR wrist LT min 3V* [address] [employer] Other XR wrist LT min 3V* : 1950 Acct:[id number] [employer] Other XR wrist LT min 3V* Age/Sex: 70 / F ADM Date: 05/03/21 [employer] Other XR wrist LT min 3V* Loc: SOXD Room: Type : [facility] [employer] Other XR wrist LT min 3V* Attending Dr: Neeraj Arrington MD [employer] Other XR wrist LT min 3V* Ordering Provider: Susie Arrington MD [employer] Other XR wrist LT min 3V* Date of Service: 05/03/21 [employer] Other XR wrist LT min 3V* XR/XR wrist LT min 3V*: Other specified postprocedural states [employer] Other XR wrist LT min 3V* Copies to: Susie Arrington MD [employer] Other XR wrist LT min 3V* 4 viewsLEFT wrist plain film [employer] Other XR wrist LT min 3V* COMPARISON:03/31/21 [employer] Other XR wrist LT min 3V* HISTORY:Status post ORIF distal radius fracture [employer] Other XR wrist LT min 3V* No hardware failure. Adequate bony alignment. Healing distal radius fracture noted. [employer] Other XR wrist LT min 3V* XR/XR wrist LT min 3V* [employer] Other XR wrist LT min 3V* IMPRESSION:Healing distal radius fracture. No hardware failure. [employer] Other XR wrist LT min 3V* Impression dictated by: Husam Martinez M.D.05/03/2021 2:12 PM [employer] Other XR wrist LT min 3V* Dictation Location: [place] [address] [employer] Other XR wrist LT min 3V* Transcribed By: SHYANN 05/03/21 1412 [employer] Other XR wrist LT min 3V* Dictated By: Husam Martinez DO 05/03/21 1411 [employer] Other XR wrist LT min 3V* Signed By: [employer] Other XR wrist LT min 3V* 05/03/21 1412 No rth [employer] Other XR FOREARM LT 2 VIEWSon 03-14 [...] by: MARYSE LANGFORD Date: 2021-03-30 20:17 Normal [facility] Cardiovascular Lab Reporton 03-03-2020 Cardiovascular Lab Report [facility] Patient Name: [facility] Ozzie MR #: [id number] Department of Physician: Donna Henderson M.D. Division of Service Date: 03/03/2020 Cardiology Birthdate: 1950 Adult Cardiovascular Room #: [place] [address] Cardiovascular Laboratory Report FINAL IMPRESSION: 1. Moderate [...] as appropriate. 5. Follow up with Dr. Ruben Carrillo and/or Liz Lane CNP as scheduled. [...] femoral vein and artery was obtained. A 6-Trinidadian 11 cm sheath was inserted in each. Difficulty exchanging the micropuncture kit for a 6-Trinidadian sheath encountered for the arterial access site; [...] physiological assessment of the coronary lesions. A 6-Trinidadian XB 3.5 guide catheter was advanced over J-wire and coaxially engaged into the left main ostium. The RSens pressure wire was advanced through the catheter with pressures normalized just off the exiting the catheter. The wire was used to traverse the suspected stenosis. An instantaneous wave-free ratio was performed. The wire was removed. Final angiography showed SARAH-3 flow with no dissection, thrombus, or distal wire trauma. The guide catheter was removed. A 5-Trinidadian JR4 guide catheter was advanced in and coaxially engaged into the right coronary ostium. The RSens pressure wire was advanced through the catheter [...] Luna/Jacklyn Doty M.D. Date Trans: 03/03/2020 12:28 P/mmo [id number] cc: Ruben Carrillo M.D. Heart Failure/ Transplant Mailstop [address] [facility] [address], SAFETY INVESTIGATOR/CAUSE ANALYST [address] [facility] [facility] [address] Normal [facility] Vital Signs Date Time Vital Sign Value Performing Clinician Facility 2024 10:12-0400 Body mass index (BMI) [Ratio] 29.32 kg/m2 Cindy Collado [employer] Work Phone: [facility] 2024 [id number] Body temperature 98.8 [degF] Cindy Collado [employer] Work Phone: [facility] 2024 10:12-0400 Body weight 70.4 kg Cindy Collado [employer] Work Phone: [facility] 2024 10:12-0400 Diastolic blood pressure 70 mm[Hg] Cindy Collado [employer] Work Phone: [facility] 2024 10:12-0400 Heart rate 71 /min Cindy Collado [employer] Work Phone: [facility] 2024 10:12-0400 Respiratory rate 18 /min Cindy Collado [employer] Work Phone: [facility] 2024 10:12-0400 SaO2% (BldA) [Mass fraction] 98 % Cindy Duncanz [employer] Work Phone: [facility] 2024 10:12-0400 Systolic blood pressure 124 mm[Hg] Cindy Duncanz [employer] Work Phone: [facility] 06-01-2024 13:09-0400 Body mass index (BMI) [Ratio] 29.25 kg/m2 Jameson Ceballos [employer] Work Phone: [facility] 06-01-2024 13:09-0400 Body weight 70.22 kg Jameson Ceballos [employer] Work Phone: [facility] 06-01-2024 13:09-0400 Diastolic blood pressure 72 mm[Hg] Jameson Ceballos [employer] Work Phone: [facility] 06-01-2024 13:09-0400 Heart rate 66 /min Jameson Ceballos [employer] Work Phone: [facility] 06-01-2024 13:09-0400 SaO2% (BldA) [Mass fraction] 98 % Jameson Ceballos [employer] Work Phone: [facility] 06-01-2024 13:09-0400 Systolic blood pressure 126 mm[Hg] Jameson Ceballos [employer] Work Phone: [facility] 05-12-2024 13:49-0400 Body mass index (BMI) [Ratio] 29.55 kg/m2 Cindy Lindseyteresaz [employer] Work Phone: [facility] 05-12-2024 13:49-0400 Body temperature 98.1 [degF] Cindy Lindseyteresaz [employer] Work Phone: [facility] 05-12-2024 13:49-0400 Body weight 70.94 kg Cindy Lindseyteresaz [employer] Work Phone: [facility] 05-12-2024 13:49-0400 Diastolic blood pressure 62 mm[Hg] Cindy Aichholz [employer] Work Phone: [facility] 05-12-2024 13:49-0400 Heart rate 74 /min Cindy Aichholz [employer] Work Phone: [facility] 05-12-2024 13:49-0400 Respiratory rate 18 /min Cindy Aichholz [employer] Work Phone: [facility] 05-12-2024 13:49-0400 SaO2% (BldA) [Mass fraction] 96 % Cindy Aichholz [employer] Work Phone: [facility] 05-12-2024 13:49-0400 Systolic blood pressure 116 mm[Hg] Cindy Aichholz [employer] Work Phone: [facility] 04-14-2024 12:49-0500 Blood Pressure Location Kori Monserrat [facility] 04-14-2024 12:49-0500 Diastolic blood pressure 69 mm[Hg] Kori Monserrat [facility] 04-14-2024 12:49-0500 Heart rate 61 /min Kori Monserrat [facility] 04-14-2024 12:49-0500 Respiratory rate 18 /min Kori Monserrat [facility] 04-14-2024 12:49-0500 Systolic blood pressure 119 mm[Hg] Kori Monserrat [facility] 04-01-2024 08:51-0500 Diastolic blood pressure 58 mm[Hg] BERNICE CLEMENTE [facility] 04-01-2024 08:51-0500 Heart rate 63 /min BERNICE CLEMENTE [facility] 04-01-2024 08:51-0500 Respiratory rate 17 /min BERNICE CLEMENTE [facility] 04-01-2024 08:51-0500 Systolic blood pressure 105 mm[Hg] BERNICE CLEMENTE [facility] 02-20-2024 10:15-0500 Body height 154.94 cm Shaikh Barb VIDES Work Phone: [facility] 02-20-2024 10:15-0500 Body mass index (BMI) [Ratio] 23.7 kg/m2 Shaikh Barb VIDES Work Phone: [facility] 02-20-2024 10:15-0500 Body weight 57 kg Shaikh Barb VIDES Work Phone: [facility] 02-20-2024 10:15-0500 Diastolic blood pressure 70 mm[Hg] Shaikh Barb VIDES Work Phone: [facility] 02-20-2024 10:15-0500 Heart rate 74 /min Shaikh Barb VIDES Work Phone: [facility] 02-20-2024 10:15-0500 Respiratory rate 18 /min Shaikh Barb VIDES Work Phone: [facility] 02-20-2024 10:15-0500 SaO2% (BldA) [Mass fraction] 97 % Shaikh Barb VIDES Work Phone: [facility] 02-20-2024 10:15-0500 Systolic blood pressure 116 mm[Hg] Shaikh Barb VIDES Work Phone: [facility] 01-21-2024 09:55-0500 Body height 154.9 cm Cindy Collado [employer] Work Phone: [facility] 01-21-2024 09:55-0500 Body mass index (BMI) [Ratio] 28.19 kg/m2 Cindy Collado [employer] Work Phone: [facility] 01-21-2024 09:55-0500 Body temperature 97.81 [degF] Cindy Collado [employer] Work Phone: [facility] 01-21-2024 09:55-0500 Body weight 67.68 kg Cindy Collado [employer] Work Phone: [facility] 01-21-2024 09:55-0500 Diastolic blood pressure 76 mm[Hg] Cindy Collado [employer] Work Phone: [facility] 01-21-2024 09:55-0500 Heart rate 61 /min Cindy Collado [employer] Work Phone: [facility] 01-21-2024 09:55-0500 Respiratory rate 19 /min Cindy Collado [employer] Work Phone: [facility] 01-21-2024 09:55-0500 SaO2% (BldA) [Mass fraction] 98 % Cindy Collado [employer] Work Phone: [facility] 01-21-2024 09:55-0500 Systolic blood pressure 116 mm[Hg] Cindy Collado [employer] Work Phone: [facility] 12-09-2023 08:53-0400 Body height 154.9 cm Christanitaer Marbin DO Work Phone: [facility] 12-09-2023 08:53-0400 Body mass index (BMI) [Ratio] 28.15 kg/m2 Christopher Marbin DO Work Phone: [facility] 12-09-2023 08:53-0400 Body weight 67.59 kg Christanitaer Marbin DO Work Phone: [facility] 12-09-2023 08:53-0400 Diastolic blood pressure 82 mm[Hg] Nakul Zazueta DO Work Phone: [facility] 12-09-2023 08:53-0400 Systolic blood pressure 132 mm[Hg] Nakul Zazueta DO Work Phone: [facility] 12-02-2023 13:12-0400 Body height 154.9 cm Aime Walls DO Work Phone: [facility] 12-02-2023 13:12-0400 Body mass index (BMI) [Ratio] 38.92 kg/m2 Aime Walls DO Work Phone: [facility] 12-02-2023 13:12-0400 Body weight 93.44 kg Aime Walls DO Work Phone: [facility] 10-22-2023 09:58-0400 Body height 154.9 cm Cindy Collado [employer] Work Phone: [facility] 10-22-2023 09:58-0400 Body mass index (BMI) [Ratio] 26.64 kg/m2 Cindy Heaven [employer] Work Phone: [facility] 10-22-2023 09:58-0400 Body temperature 98.49 [degF] Cindy Heaven [employer] Work Phone: [facility] 10-22-2023 09:58-0400 Body weight 63.96 kg Cindy Heaven [employer] Work Phone: [facility] 10-22-2023 09:58-0400 Diastolic blood pressure 72 mm[Hg] Cindy Heaven [employer] Work Phone: [facility] 10-22-2023 09:58-0400 Heart rate 60 /min Cindy Heaven [employer] Work Phone: [facility] 10-22-2023 09:58-0400 Respiratory rate 17 /min Cindy Heaven [employer] Work Phone: [facility] 10-22-2023 09:58-0400 SaO2% (BldA) [Mass fraction] 100 % Cindy Heaven [employer] Work Phone: [facility] 10-22-2023 09:58-0400 Systolic blood pressure 100 mm[Hg] Cindy Lindseyludmila [employer] Work Phone: [facility] 08-21-2023 13:01-0400 Blood Pressure Location BERNICE CLEMENTE [facility] 08-21-2023 13:01-0400 Diastolic blood pressure 68 mm[Hg] BERNICE CLEMENTE [facility] 08-21-2023 13:01-0400 Heart rate 62 /min BERNICE CLEMENTE [facility] 08-21-2023 13:01-0400 Respiratory rate 19 /min BERNICE CLEMENTE [facility] 08-21-2023 13:01-0400 Systolic blood pressure 130 mm[Hg] BERNICE CLEMENTE [facility] 08-08-2023 09:52-0400 Body height 154.94 cm MD Shaikh Day Work Phone: [facility] 08-08-2023 09:52-0400 Body mass index (BMI) [Ratio] 23.7 kg/m2 MD Shaikh Day Work Phone: [facility] 08-08-2023 09:52-0400 Body temperature 97.8 [degF] MD Shaikh Day Work Phone: [facility] 08-08-2023 09:52-0400 Body weight 57 kg MD Shaikh Day Work Phone: [facility] 08-08-2023 09:52-0400 Diastolic blood pressure 82 mm[Hg] MD Shaikh Day Work Phone: [facility] 08-08-2023 09:52-0400 Heart rate 78 /min MD Shaikh Day Work Phone: [facility] 08-08-2023 09:52-0400 Respiratory rate 16 /min MD Shaikh Day Work Phone: [facility] 08-08-2023 09:52-0400 SaO2% (BldA) [Mass fraction] 98 % MD Shaikh Day Work Phone: [facility] 08-08-2023 09:52-0400 Systolic blood pressure 124 mm[Hg] MD Shaikh Day Work Phone: [facility] 07-15-2023 12:39-0400 Blood Pressure Location Carmen Orzech [facility] 07-15-2023 12:39-0400 Body temperature 97.88 [degF] Carmen Orzech [facility] 07-15-2023 12:39-0400 Diastolic blood pressure 84 mm[Hg] Carmen Orzech [facility] 07-15-2023 12:39-0400 Heart rate 78 /min Carmen Orzech [facility] 07-15-2023 12:39-0400 Systolic blood pressure 124 mm[Hg] Carmen Orzech [facility] 07-02-2023 08:53-0400 Body height 152.4 cm Martin Espinosa MD Work Phone: [employer] 07-02-2023 08:53-0400 Body mass index (BMI) [Ratio] 26.85 kg/m2 Martin Espinosa MD Work Phone: [facility] 07-02-2023 08:53-0400 Body weight 62.37 kg Martin Espinosa MD Work Phone: [facility] 07-02-2023 08:53-0400 Diastolic blood pressure 64 mm[Hg] Martin Espinosa MD Work Phone: [facility] 07-02-2023 08:53-0400 Heart rate 56 /min Martin Espinosa MD Work Phone: [facility] 07-02-2023 08:53-0400 Systolic blood pressure 150 mm[Hg] Martin Espinosa MD Work Phone: [facility] 05-11-2023 11:10-0400 Body height 154.94 cm MD Shaikh Day Work Phone: [facility] 05-11-2023 11:10-0400 Body mass index (BMI) [Ratio] 23.8 kg/m2 MD Shaikh Day Work Phone: [facility] 05-11-2023 11:10-0400 Body temperature 97.2 [degF] MD Shaikh Day Work Phone: [facility] 05-11-2023 11:10-0400 Body weight 57.15 kg MD Shaikh Day Work Phone: [facility] 05-11-2023 11:10-0400 Diastolic blood pressure 58 mm[Hg] MD Shaikh Day Work Phone: [facility] 05-11-2023 11:10-0400 Heart rate 58 /min MD Shaikh Day Work Phone: [facility] 05-11-2023 11:10-0400 Respiratory rate 16 /min MD Shaikh Day Work Phone: [facility] 05-11-2023 11:10-0400 SaO2% (BldA) [Mass fraction] 98 % MD Shaikh Day Work Phone: [facility] 05-11-2023 11:10-0400 Systolic blood pressure 106 mm[Hg] MD Shaikh Day Work Phone: [facility] 05-09-2023 09:49-0400 Body height 154.94 cm MD Shaikh Day Work Phone: [facility] 05-09-2023 09:49-0400 Body mass index (BMI) [Ratio] 23.8 kg/m2 MD Shaikh Day Work Phone: [facility] 05-09-2023 09:49-0400 Body temperature 97.6 [degF] MD Shaikh Day Work Phone: [facility] 05-09-2023 09:49-0400 Body weight 57.15 kg MD Shaikh Day Work Phone: [facility] 05-09-2023 09:49-0400 Diastolic blood pressure 70 mm[Hg] MD Shaikh Day Work Phone: [facility] 05-09-2023 09:49-0400 Heart rate 73 /min MD Shaikh Day Work Phone: [facility] 05-09-2023 09:49-0400 SaO2% (BldA) [Mass fraction] 97 % MD Shaikh Day Work Phone: [facility] 05-09-2023 09:49-0400 Systolic blood pressure 138 mm[Hg] MD Shaikh Day Work Phone: [facility] 04-13-2023 15:15-0500 Body temperature 98 [degF] MD Shaikh Day Work Phone: [facility] 04-13-2023 15:15-0500 Diastolic blood pressure 56 mm[Hg] MD Shaikh Day Work Phone: [facility] 04-13-2023 15:15-0500 Heart rate 76 /min MD Shaikh Day Work Phone: [facility] 04-13-2023 15:15-0500 Respiratory rate 17 /min MD Shaikh Day Work Phone: [facility] 04-13-2023 15:15-0500 SaO2% (BldA) [Mass fraction] 95 % MD Shaikh Day Work Phone: [facility] 04-13-2023 15:15-0500 Systolic blood pressure 100 mm[Hg] MD Shaikh Day Work Phone: [facility] 04-13-2023 04:48-0500 Body weight 62.9 kg MD Shaikh Day Work Phone: [facility] 04-12-2023 13:07-0500 Body height 154.94 cm MD Shaikh Day Work Phone: [facility] 04-12-2023 11:49-0500 Inhaled oxygen flow rate 8 L/min MD Shaikh Day Work Phone: [facility] 04-12-2023 10:02-0500 Body mass index (BMI) [Ratio] 25.9 kg/m2 MD Shaikh Day Work Phone: [facility] 04-09-2023 09:48-0500 Body height 154.94 cm MD Shaikh Day Work Phone: [facility] 04-09-2023 09:48-0500 Body mass index (BMI) [Ratio] 29 kg/m2 MD Shaikh Day Work Phone: [facility] 04-09-2023 09:48-0500 Body temperature 97.6 [degF] MD Shaikh Day Work Phone: [facility] 04-09-2023 09:48-0500 Body weight 69.85 kg MD Shaikh Day Work Phone: [facility] 04-09-2023 09:48-0500 Diastolic blood pressure 66 mm[Hg] MD Shaikh Day Work Phone: [facility] 04-09-2023 09:48-0500 Heart rate 76 /min MD Shaikh Day Work Phone: [facility] 04-09-2023 09:48-0500 Respiratory rate 16 /min MD Shaikh Day Work Phone: [facility] 04-09-2023 09:48-0500 SaO2% (BldA) [Mass fraction] 98 % MD Shaikh Day Work Phone: [facility] 04-09-2023 09:48-0500 Systolic blood pressure 114 mm[Hg] MD Shaikh Day Work Phone: [facility] 03-20-2023 12:52-0500 Body height 152.4 cm Duncan Haddad MD Work Phone: [facility] 03-20-2023 12:52-0500 Body mass index (BMI) [Ratio] 26.95 kg/m2 Duncan Haddad MD Work Phone: [facility] 03-20-2023 12:52-0500 Body weight 62.6 kg Duncan Haddad MD Work Phone: [facility] 03-20-2023 12:52-0500 Diastolic blood pressure 65 mm[Hg] Duncan Haddad MD Work Phone: [facility] 03-20-2023 12:52-0500 Heart rate 67 /min Duncan Haddad MD Work Phone: [facility] 03-20-2023 12:52-0500 Systolic blood pressure 144 mm[Hg] Duncan Haddad MD Work Phone: [facility] 03-07-2023 10:48-0500 Blood Pressure Location Carmen Orzech [facility] 03-07-2023 10:48-0500 Diastolic blood pressure 80 mm[Hg] Carmen Orzech [facility] 03-07-2023 10:48-0500 Heart rate 80 /min Carmen Orzech [facility] 03-07-2023 10:48-0500 Systolic blood pressure 118 mm[Hg] Carmen Orzech [facility] 12-26-2022 12:10-0500 Diastolic blood pressure 70 mm[Hg] MD Shaikh Day Work Phone: [facility] 12-26-2022 12:10-0500 Systolic blood pressure 144 mm[Hg] MD Shaikh Day Work Phone: [facility] 10-16-2022 14:10-0400 Body height 154.94 cm Kori Temple Other [facility] Other 10-16-2022 14:10-0400 Body mass index (BMI) [Ratio] 26.53 kg/m2 Kori Temple Other [facility] Other 10-16-2022 14:10-0400 Body temperature 98.1 [degF] Kori Temple Other [facility] Other 10-16-2022 14:10-0400 Body weight 63.69 kg Kori Treviñoley Other [facility] Other 10-16-2022 14:10-0400 Diastolic blood pressure 81 mm[Hg] Kori Treviñoley Other [facility] Other 10-16-2022 14:10-0400 Respiratory rate 18 /min Kori Treviñoley Other [facility] Other 10-16-2022 14:10-0400 SaO2% (BldA) [Mass fraction] 98 % Kori Treviñoley Other [facility] Other 10-16-2022 14:10-0400 Systolic blood pressure 139 mm[Hg] Kori Windy Other [facility] Other 04-04-2022 09:30-0500 Body height 154.94 cm Denver Juarez Other [facility] Other 04-04-2022 09:30-0500 Body mass index (BMI) [Ratio] 28.72 kg/m2 Denver Juarez Other [facility] Other 04-04-2022 09:30-0500 Body temperature 97.8 [degF] Denver Juarez Other [facility] Other 04-04-2022 09:30-0500 Body weight 68.95 kg Denver Juarez Other [facility] Other 04-04-2022 09:30-0500 Diastolic blood pressure 72 mm[Hg] Denver Larry Other [facility] Other 04-04-2022 09:30-0500 SaO2% (BldA) [Mass fraction] 98 % Denver Millernorah Other [facility] Other 04-04-2022 09:30-0500 Systolic blood pressure 116 mm[Hg] Denver Larry Other [facility] Other 11-22-2021 12:12-0400 Body temperature 97.9 [degF] MD Shaikh Day Work Phone: [facility] 11-22-2021 12:12-0400 Diastolic blood pressure 82 mm[Hg] MD Shaikh Day Work Phone: [facility] 11-22-2021 12:12-0400 Heart rate 95 /min MD Shaikh Day Work Phone: [facility] 11-22-2021 12:12-0400 Respiratory rate 16 /min MD Shaikh Day Work Phone: [facility] 11-22-2021 12:12-0400 SaO2% (BldA) [Mass fraction] 98 % MD Shaikh Day Work Phone: [facility] 11-22-2021 12:12-0400 Systolic blood pressure 151 mm[Hg] MD Shaikh Day Work Phone: [facility] 11-22-2021 04:04-0400 Body weight 78.6 kg MD Shaikh Day Work Phone: [facility] 11-21-2021 17:12-0400 Body height 157.48 cm MD Shaikh Day Work Phone: [facility] 11-21-2021 13:57-0400 Diastolic blood pressure 56 mm[Hg] MD Shaikh Day Work Phone: [facility] 11-21-2021 13:57-0400 Heart rate 77 /min MD Shaikh Day Work Phone: [facility] 11-21-2021 13:57-0400 Respiratory rate 16 /min MD Shaikh Day Work Phone: [facility] 11-21-2021 13:57-0400 SaO2% (BldA) [Mass fraction] 95 % MD Shaikh Day Work Phone: [facility] 11-21-2021 13:57-0400 Systolic blood pressure 117 mm[Hg] MD Shaikh Day Work Phone: [facility] 11-21-2021 11:24-0400 Body temperature 96.9 [degF] MD Shaikh Day Work Phone: [facility] 11-21-2021 03:56-0400 Body height 157.48 cm MD Shaikh Day Work Phone: [facility] 11-21-2021 03:56-0400 Body weight 75.9 kg MD Shaikh Day Work Phone: [facility] 09-27-2021 10:15-0400 Body height 154.94 cm Denver Juarez Other [facility] Other 09-27-2021 10:15-0400 Body mass index (BMI) [Ratio] 35.9 kg/m2 Denver Juarez Other [facility] Other 09-27-2021 10:15-0400 Body temperature 96.2 [degF] Denver Juarez Other [facility] Other 09-27-2021 10:15-0400 Body weight 86.18 kg Denver Juarez Other [facility] Other 09-27-2021 10:15-0400 Diastolic blood pressure 52 mm[Hg] Denver Millernorah Other [facility] Other 09-27-2021 10:15-0400 SaO2% (BldA) [Mass fraction] 97 % Denver Juarez Other [facility] Other 09-27-2021 10:15-0400 Systolic blood pressure 110 mm[Hg] Denver Juarez Other [facility] Other 09-22-2021 14:15-0400 Body height 154.94 cm Ilda Das Other [facility] Other 09-22-2021 14:15-0400 Body mass index (BMI) [Ratio] 35.9 kg/m2 Ilda Das Other [facility] Other 09-22-2021 14:15-0400 Body temperature 98.2 [degF] Ilda Das Other [facility] Other 09-22-2021 14:15-0400 Body weight 86.18 kg Ilda Das Other [facility] Other 09-22-2021 14:15-0400 Respiratory rate 18 /min Ilda Das Other [facility] Other 09-22-2021 14:15-0400 SaO2% (BldA) [Mass fraction] 98 % Ilda Das Other [facility] Other 09-20-2021 17:00-0400 Body height 154.94 cm Susie Calvey Other [facility] Other 09-20-2021 17:00-0400 Body mass index (BMI) [Ratio] 35.9 kg/m2 Susie Calvey Other [facility] Other 09-20-2021 17:00-0400 Body weight 86.18 kg Susie Calvey Other [facility] Other 05-03-2021 11:45-0400 Body height 154.94 cm Susie Calvey Other [facility] Other 05-03-2021 11:45-0400 Body mass index (BMI) [Ratio] 35.9 kg/m2 Susie Calvey Other [facility] Other 05-03-2021 11:45-0400 Body weight 86.18 kg Susie Calvey Other [facility] Other 03-02-2021 10:00-0500 Body height 154.94 cm Denver Juarez Other [facility] Other 03-02-2021 10:00-0500 Body mass index (BMI) [Ratio] 36.27 kg/m2 Denver Juarez Other [facility] Other 03-02-2021 10:00-0500 Body temperature 96.5 [degF] Denver Juarez Other [facility] Other 03-02-2021 10:00-0500 Body weight 87.09 kg Denver Juarez Other [facility] Other 03-02-2021 10:00-0500 Diastolic blood pressure 58 mm[Hg] Denver Juarez Other [facility] Other 03-02-2021 10:00-0500 SaO2% (BldA) [Mass fraction] 99 % Denver Juarez Other [facility] Other 03-02-2021 10:00-0500 Systolic blood pressure 108 mm[Hg] Denver Juarez Other [facility] Other 12-01-2020 10:00-0400 Body height 154.94 cm Denver Juarez Other [facility] Other 12-01-2020 10:00-0400 Body mass index (BMI) [Ratio] 36.27 kg/m2 Denver Juarez Other [facility] Other 12-01-2020 10:00-0400 Body weight 87.09 kg Denver Juarez Other [facility] Other 12-01-2020 10:00-0400 Diastolic blood pressure 79 mm[Hg] Denver Juarez Other [facility] Other 12-01-2020 10:00-0400 Systolic blood pressure 149 mm[Hg] Denver Juarez Other [facility] Other 11-10-2020 10:30-0400 Body height 154.94 cm Denver Juaerz Other [facility] Other 11-10-2020 10:30-0400 Body mass index (BMI) [Ratio] 35.9 kg/m2 Denver Juarez Other [facility] Other 11-10-2020 10:30-0400 Body weight 86.18 kg Denver Juarez Other [facility] Other 11-10-2020 10:30-0400 Diastolic blood pressure 84 mm[Hg] Denver Millernorah Other [facility] Other 11-10-2020 10:30-0400 Systolic blood pressure 150 mm[Hg] Denver Juarez Other [facility] Other Encounters Encounter Date Encounter Type Care Provider Facility Start: 08-05-2024 ambulatory BERNICE Simmonsi ty:S[facility] [place] Start: 08-05-2024 End: 08-05-2024 Patient encounter procedure BERNICE CLEMENTE [facility] Start: 07-22-2024 End: 07-22-2024 ambulatory [facility] Start: 07-16-2024 End: 07-16-2024 ambulatory BERNICE CLEMENTE Facility: [facility] Start: 07-16-2024 End: 07-16-2024 Patient encounter procedure BERNICE CLEMENTE [facility] Start: 07-01-2024 End: 07-01-2024 Refill Cindy Collado NP Work Phone: [facility] [place] Comment on above: Chronic UTI (Primary Dx); Anxiety and depression (CMS/HCC); Overflow incontinence of urine Start: 06-30-2024 End: 06-30-2024 Lab Drop off Alexandr OVALLE [facility] Start: 06-30-2024 End: 06-30-2024 ambulatory Alexandr OVALLE Facility:[facility] Start: 06-30-2024 End: 06-30-2024 Patient encounter procedure BERNICE CLEMENTE [facility] Comment on above: Primary progressive aphasia (CMS/HCC) (Primary Dx); Ataxia; Memory difficulty; History of ischemic stroke; Other insomnia; DULCE MARIA (obstructive sleep apnea); Severe episode of recurrent major depressive disorder, without psychotic features (HCC) (CMS/HCC); Severe anxiety Start: 06-30-2024 End: 06-30-2024 ambulatory CINDY COLLADO Not Available Start: 06-24-2024 End: 06-24-2024 Clinisync Result Encounter Jameson Ceballos ENTRY LEVEL FINANCE Work Phone: [facility] External Department Unsolicited Start: 06-24-2024 End: 06-24-2024 Clinisync Result Encounter Jameson Ceballos ENTRY LEVEL FINANCE Work Phone: [facility] External Department Unsolicited Start: 06-15-2024 End: 06-15-2024 Bamboo flowsheet Chaim Noel PhD Work Phone: [facility] [place] Start: 06-15-2024 End: 06-15-2024 Bamboo flowsheet Chaim Noel PhD Work Phone: [facility] Start: 06-15-2024 End: 06-15-2024 ambulatory CHAIM NOEL Not Available Start: 06-15-2024 End: 06-15-2024 Patient encounter procedure Chaim Noel PhD Work Phone: [facility] Comment on above: Expressive aphasia ( Primary Dx); Memory difficulty; History of ischemic stroke; Staring episodes; Other insomnia; Stress due to family tension Start: 2024 End: 2024 Bamboo flowsheet Cindy Collado ENTRY LEVEL FINANCE Work Phone: [facility] Start: 2024 End: 2024 Bamboo flowsheet Cindy Heaven ENTRY LEVEL FINANCE Work Phone: [facility] Start: 2024 End: 2024 Office outpatient visit 10 minutes Cindy Heaven ENTRY LEVEL FINANCE Work Phone: [facility] Comment on above: Acute diffuse otitis externa of both ears (Primary Dx) Start: 2024 End: 2024 ambulatory CINDY HEAVEN Not Available Start: 06-01-2024 End: 06-01-2024 Bamboo flowsheet Jameson Ceballos ENTRY LEVEL FINANCE Work Phone: [facility] Start: 06-01-2024 End: 06-01-2024 Bamboo flowsheet Jameson Ceballos ENTRY LEVEL FINANCE Work Phone: [facility] Start: 06-01-2024 End: 06-01-2024 Office outpatient visit 40 minutes Jameson Ceballos ENTRY LEVEL FINANCE Work Phone: [facility] Comment on above: Ataxia (Primary Dx); Gait instability; Expressive aphasia; Memory difficulty; History of ischemic stroke Start: 06-01-2024 End: 06-01-2024 ambulatory JAMESON CEBALLOS Not Available Start: 05-29-2024 End: 05-29-2024 Refill Cindy Heaven ENTRY LEVEL FINANCE Work Phone: [facility] Comment on above: Dizziness and giddin ess (Primary Dx) Start: 05-12-2024 End: 05-12-2024 Bamboo flowsheet Cindy Heaven ENTRY LEVEL FINANCE Work Phone: [facility] Start: 05-12-2024 End: 05-12-2024 Bamboo flowsheet Cindy Heaven ENTRY LEVEL FINANCE Work Phone: [facility] Start: 05-12-2024 End: 05-12-2024 Clinisync Result Encounter Cindy Heaven ENTRY LEVEL FINANCE Work Phone: [facility] External Department Unsolicited Start: 05-12-2024 End: 05-12-2024 ambulatory CINDY HEAVEN Not Available Start: 05-12-2024 End: 05-12-2024 Office outpatient visit 25 minutes Cindy Collado NP Work Phone: [facility] Comment on above: Primary hypertension (CMS/HCC) (Primary Dx); Cerebrovascular accident (CVA), unspecified mechanism (CMS/HCC); Dizziness and giddiness; Overflow incontinence of urine; CRYSTAL (generalized anxiety disorder) (CMS/HCC); Impaired mobility and activities of daily living Start: 05-05-2024 End: 05-06-2024 ambulatory BERNICE CLEMENTE Facility:[facility] Start: 05-05-2024 End: 05-06-2024 Lab Drop off BERNICE CLEMENTE [facility] Start: 05-05-2024 End: 05-05-2024 ambulatory BERNICE CLEMENTE Facility: [facility] Start: 04-14-2024 End: 04-14-2024 ambulatory Kori eGrman Facility: [facility] Start: 04-14-2024 End: 04-14-2024 Patient encounter procedure Kori Leesa [facility] Start: 04-01-2024 End: 04-01-2024 Lab Drop off Alexandr OVALLE [facility] Start: 04-01-2024 End: 04-01-2024 ambulatory Alexandr OVALLE Facility:[facility] Start: 04-01-2024 End: 04-01-2024 Patient encounter procedure BERNICE CLEMENTE [facility] Start: 04-01-2024 End: 04-01-2024 ambulatory PA-C BERNICE CLEMENTE Facility:[facility] [place] Start: 04-01-2024 End: 04-01-2024 Patient encounter procedure BERNICE CLEMENTE [facility] [place] Start: 02-26-2024 End: 02-26-2024 Orders Only Cindy Collado NP Work Phone: [facility] Comment on above: Cerebrovascular acci dent (CVA), unspecified mechanism (CMS/HCC) (Primary Dx); Dysarthria; White matter disease; Stenosis of carotid artery, unspecified laterality; Peripheral vascular disease, unspecified (CMS/HCC); Overflow incontinence of urine; Dizziness and giddiness Start: 02-20-2024 End: 02-20-2024 Lab Drop off BERNICE CLEMENTE [facility] Start: 02-20-2024 End: 02-20-2024 ambulatory BERNICE CLEMENTE Facility:[facility] Start: 02-20-2024 End: 02-20-2024 Patient encounter procedure BERNICE CLEMENTE [facility] [place] Start: 02-20-2024 End: 02-20-2024 Patient encounter procedure Shaikh Barb VIDES Work Phone: [facility] Work Phone: Start: 02-20-2024 End: 02-20-2024 ambulatory Shaikh Barb VIDES Work Phone: [facility] Work Phone: Start: 01-29-2024 End: 01-29-2024 ambulatory CINDY COLLADO Facility:[facility] Start: 01-29-2024 End: 01-29-2024 Patient encounter procedure BERNICE CLEMENTE [facility] [place] Start: 01-23-2024 End: 01-23-2024 Refill Cindy Collado NP Work Phone: [facility] Comment on above: Chronic UTI (Primary Dx) Start: 01-21-2024 End: 01-21-2024 Bamboo flowsheet Cindy Lindseyludmila ENTRY LEVEL FINANCE Work Phone: [facility] Start: 01-21-2024 End: 01-22-2024 Bamboo flowsheet Cindy Erickbeludmila ENTRY LEVEL FINANCE Work Phone: [facility] Start: 01-21-2024 End: 01-22-2024 External Result Encounter Cindy Erickbeludmila ENTRY LEVEL FINANCE Work Phone: [facility] External Department Unsolicited Start: 01-21-2024 End: 01-21-2024 ambulatory CINDY LINDSEYLUDMILA Not Available Start: 01-21-2024 End: 01-21-2024 Office outpatient visit 40 minutes Cindy Collado ENTRY LEVEL FINANCE Work Phone: [facility] Comment on above: Primary hypertension (CMS/HCC) (Primary Dx); Heart failure, unspecified (CMS/HCC); Peripheral vascular disease, unspecified (CMS/HCC); Atherosclerosis of coronary artery of [place] heart, unspecified vessel or lesion type, unspecified whether angina present (CMS/HCC); Stenosis of right carotid artery; Recurrent major depressive disorder, in full remission (CMS/HCC); Cerebrovascular accident (CVA), unspecified mechanism (CMS/HCC); Muscle spasm; Iron deficiency; Psychophysiological insomnia; Migraine with aura and without status migrainosus, not intractable (CMS/HCC); CRYSTAL (generalized anxiety disorder) (CMS/HCC); UTI symptoms; Anxiety and depression (CMS/HCC); Overflow incontinence of urine; Chronic UTI Start: 12-12-2023 End: 12-12-2023 Patient encounter procedure MD Shaikh Day Work Phone: [facility] Work Phone: Start: 12-12-2023 End: 12-12-2023 ambulatory MD Shaikh Day Work Phone: [facility] Work Phone: Start: 12-09-2023 End: 12-09-2023 Office outpatient new 60 minutes Nakul Marbin DO Work Phone: [facility] Comment on above: Ataxia (Primary Dx); History of ischemic stroke Start: 12-09-2023 End: 12-09-2023 ambulatory NAKUL ZAZUETA Not Available Start: 12-02-2023 End: 12-02-2023 Bamboo flowsheet Aime Walls DO Work Phone: [facility] [place] Start: 12-02-2023 End: 12-02-2023 Bamboo flowsheet Aime Walls DO Work Phone: [facility] [place] Start: 12-02-2023 End: 12-02-2023 Office outpatient new 45 minutes Aime Walls DO Work Phone: [facility] [place] Comment on above: Oropharyngeal dyspha kaushik (Primary Dx) Start: 12-02-2023 End: 12-02-2023 Refill Cindy Aichholz ENTRY LEVEL FINANCE Work Phone: [facility] Comment on above: Anxiety and depressi on (CMS/[facility]) Start: 11-19-2023 End: 11-19-2023 Refill Cindy Aichholz ENTRY LEVEL FINANCE Work Phone: [facility] Comment on above: Urinary tract infect ion symptoms (Primary Dx) Start: 11-16-2023 End: 11-16-2023 Clinisync Result Encounter Cindy Aicdarellz ENTRY LEVEL FINANCE Work Phone: [facility] External Department Unsolicited Start: 11-16-2023 End: 11-16-2023 Clinisync Result Encounter Cindy Aichholz ENTRY LEVEL FINANCE Work Phone: [facility] External Department Unsolicited Start: 10-30-2023 End: 10-30-2023 Refill Cindy Aichholz ENTRY LEVEL FINANCE Work Phone: [facility] Comment on above: Acute cystitis witho ut hematuria (Primary Dx) Urinary tract infect ion symptoms (Primary Dx) Start: 10-26-2023 End: 10-26-2023 Clinisync Result Encounter Cindy Lindseyludmila ENTRY LEVEL FINANCE Work Phone: [facility] External Department Unsolicited Start: 10-26-2023 End: 10-26-2023 Clinisync Result Encounter Cindy Lindseyludmila ENTRY LEVEL FINANCE Work Phone: [facility] External Department Unsolicited Start: 10-22-2023 End: 10-22-2023 Bamboo flowsheet Cindy Lindseyludmila ENTRY LEVEL FINANCE Work Phone: [facility] Start: 10-22-2023 End: 10-22-2023 Bamboo flowsheet Cindy Lindseyludmila ENTRY LEVEL FINANCE Work Phone: [facility] Start: 10-22-2023 End: 10-22-2023 Office outpatient visit 25 minutes Cindy Collado ENTRY LEVEL FINANCE Work Phone: [facility] Comment on above: Oropharyngeal dyspha kaushik (Primary Dx); Dysarthria; Cerebrovascular accident (CVA), unspecified mechanism (CMS/HCC); Atherosclerosis of coronary artery of [place] heart, unspecified vessel or lesion type, unspecified whether angina present (CMS/HCC); Primary hypertension (CMS/HCC); Stenosis of right carotid artery; Mixed hyperlipidemia (CMS/HCC); Dizziness and giddiness; Impaired mobility and activities of daily living; Migraine with aura and without status migrainosus, not intractable (CMS/HCC); Muscle spasm; Anxiety and depression (CMS/HCC); Iron deficiency; Psychophysiological insomnia Start: 10-22-2023 End: 10-22-2023 ambulatory CINDY HEAVEN Not Available Start: 10-09-2023 End: 10-09-2023 Orders Only Cindy Heaven ENTRY LEVEL FINANCE Work Phone: [facility] Comment on above: Cerebrovascular acci dent (CVA), unspecified mechanism (CMS/HCC) (Primary Dx); Oropharyngeal dysphagia; Dysarthria Start: 09-11-2023 End: 09-11-2023 ambulatory [facility] Start: 09-09-2023 End: 09-09-2023 ambulatory SHAIKH BARB Not Available Start: 08-21-2023 End: 08-21-2023 ambulatory KAREY CLEMENTE Facility:[facility] [place] Start: 08-21-2023 End: 08-21-2023 Patient encounter procedure BERNICE CLEMENTE [facility] [place] Start: 08-21-2023 End: 08-21-2023 ambulatory SHAIKH BARB Not Available Start: 08-08-2023 End: 08-08-2023 ambulatory MD Shaikh Day Work Phone: [facility] Work Phone: Start: 08-08-2023 End: 08-08-2023 Patient encounter procedure MD Shaikh Day Work Phone: [facility] Vascular Surgery Work Phone: Start: 07-15-2023 End: 07-15-2023 ambulatory Carmen X Orzech Facility:[facility] Start: 07-15-2023 End: 07-15-2023 Lab Drop off Carmen X Orzech [facility] Start: 07-15-2023 End: 07-15-2023 ambulatory Carmen X Orzech Facility: [facility] Start: 07-15-2023 End: 07-15-2023 Patient encounter procedure Carmen X Orzech [facility] [place] Start: 07-05-2023 End: 07-05-2023 Telephone encounter Adia Bowling [facility] Comment on above: office notes Start: 07-02-2023 End: 07-02-2023 ambulatory [facility] Start: 07-02-2023 End: 07-02-2023 Office outpatient visit 25 minutes Martin Espinosa MD Work Phone: [facility] Comment on above: Functional gait diso rder (Primary Dx); Dizziness Start: 06-05-2023 End: 06-12-2023 Telephone encounter [facility] Start: 2023 Patient encounter procedure Cindy Lindseyludmila LFORES Work Phone: [facility] Start: 05-12-2023 End: 05-12-2023 ambulatory Hannah Still Facility:[facility] Start: 05-12-2023 End: 05-12-2023 Patient encounter procedure ENTRY LEVEL FINANCE-C Hannah Still Work Phone: [facility] Work Phone: Start: 05-12-2023 End: 05-12-2023 ambulatory Shaikh Barb [facility] Work Phone: Start: 05-11-2023 End: 05-11-2023 ambulatory MD Shaikh Day Work Phone: [facility] Work Phone: Start: 05-11-2023 End: 05-11-2023 Patient encounter procedure MD Shaikh Day Work Phone: [facility] Work Phone: Start: 05-09-2023 End: 05-09-2023 ambulatory MD Shaikh Day Work Phone: [facility] Work Phone: Start: 05-09-2023 End: 05-09-2023 Patient encounter procedure MD Shaikh Day Work Phone: [facility] Work Phone: Start: 04-12-2023 Non-patient / Non-visit MD Lazaro Day Work Phone: [facility] Work Phone: Start: 04-12-2023 End: 04-13-2023 Evaluation and management of inpatient MD Shaikh Day Work Phone: [facility] Work Phone: Start: 04-10-2023 Telephone encounter [facility] Comment on above: [employer] [employer] Start: 04-09-2023 End: 04-09-2023 Patient encounter procedure MD Shaikh Day Work Phone: [facility] Vascular Surgery Work Phone: Start: 04-09-2023 End: 04-09-2023 ambulatory [facility] Facility:[facility] Start: 03-28-2023 Orders Only Shaikh Barb VIDES Work Phone: [facility] Comment on above: Anxiety and depressi on (CMS/HCC) (Primary Dx) NEW PATIENT REFERRAL Start: 03-20-2023 End: 03-20-2023 ambulatory [facility] Start: 03-20-2023 End: 03-20-2023 Office outpatient new 45 minutes Duncan Haddad MD Work Phone: [facility] Comment on above: Dizzy (Primary Dx); 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 ([facility]-HCC); Dizziness Start: 03-07-2023 End: 03-07-2023 ambulatory [facility] Facility:[facility] Start: 03-07-2023 End: 03-07-2023 Patient encounter procedure Carmen Quintero [facility] Start: 03-06-2023 ambulatory [facility] Start: 03-04-2023 End: 08-21-2023 Telephone encounter Joie Leyva RN [facility] Comment on above: Appointment Start: 03-03-2023 ambulatory [facility] Start: 03-01-2023 End: 03-07-2023 Emergency department patient visit [facility] Start: 02-21-2023 ambulatory SHAIKH BARB Facility: [facility] Start: 02-16-2023 ambulatory [facility] Start: 01-24-2023 Telephone encounter Charlette Burr [facility] Comment on above: paperwork Start: 01-21-2023 End: 01-21-2023 ambulatory MD Shaikh Day Work Phone: [facility] Work Phone: Start: 01-21-2023 End: 01-21-2023 Discharged Recurring MD Shaikh Day Work Phone: [facility] [address] Start: 10-16-2022 End: 10-16-2022 ambulatory Kori Temple Other [facility] Other Start: 10-16-2022 Office outpatient vi sit 15 minutes Kori Temple [facility] Start: 04-04-2022 End: 04-04-2022 ambulatory Denver Juarez Other [facility] Other Start: 04-04-2022 Office outpatient vi sit 15 minutes Denver Juarez [facility] Start: 03-06-2022 End: 03-06-2022 ambulatory Earline Harris Other [facility] Other Start: 03-06-2022 Telephone encounter Earline Harris [facility] Start: 03-02-2022 End: 03-02-2022 ambulatory MD Gerry Godwin Work Phone: [facility] Work Phone: Start: 03-02-2022 End: 03-02-2022 Departed Referred MD Gerry Godwin Work Phone: [facility] [place] Work Phone: Start: 02-21-2022 End: 02-22-2022 ambulatory DIANARHETT FONSECA Facility:[facility] Start: 02-20-2022 End: 02-21-2022 ambulatory DE OLIVEIRA H FAWWAD Facility:[facility] Start: 01-31-2022 End: 02-01-2022 ambulatory DE OLIVEIRA H FAWWAD Facility:[facility] Start: 01-22-2022 End: 01-23-2022 ambulatory DE OLIVEIRA H FAWWAD Facility:[facility] Start: 01-18-2022 End: 01-19-[address] Facility:[facility] Start: 01-09-2022 End: 01-09-2022 ambulatory MD Shaikh Day Work Phone: [facility] Work Phone: Start: 01-09-2022 End: 01-09-2022 Discharged Recurring MD Shaikh Day Work Phone: [facility] [address] Start: 01-02-2022 End: 01-03-2022 ambulatory DE OLIVEIRA H FAWWAD Facility:[facility] Start: 12-07-2021 End: 12-08-2021 ambulatory DE OLIVEIRA H FAWWAD Facility:[facility] Start: 11-27-2021 End: 11-28-2021 ambulatory DE OLIVEIRA H FAWWAD Facility:[facility] Start: 11-26-2021 End: 11-26-2021 ambulatory DE OLIVEIRA H FAWWAD Facility:[facility] Start: 11-24-2021 End: 11-24-2021 Emergency department patient visit [address] [facility] Facility:[id number] Start: 11-21-2021 End: 11-22-2021 Evaluation and management of inpatient MD Shaikh Day Work Phone: [facility] Start: 11-14-2021 Registered Recurring MD Shaikh Day Work Phone: [facility] [address] Start: 10-31-2021 End: 10-31-2021 ambulatory Denver Juarez Other [facility] Other Start: 10-31-2021 Telephone encounter Denver Chanel [facility] Start: 10-24-2021 End: 10-25-2021 ambulatory SHAIKH Be DAY Facility:[facility] Start: 10-16-2021 End: 10-18-2021 Evaluation and management of inpatient SHAIKH Be DAY Facility:[facility] Start: 09-27-2021 End: 09-27-2021 ambulatory Denver Juarez Other [facility] Other Start: 09-27-2021 Office outpatient vi sit 15 minutes Denver Juarez [facility] Start: 09-22-2021 End: 09-22-2021 ambulatory Ilda Das Other [facility] Other Start: 09-22-2021 Office outpatient vi sit 15 minutes Ilda Das [facility] [address] Start: 09-20-2021 End: 09-20-2021 ambulatory Susie Arrington Other [facility] Other Start: 09-20-2021 Office outpatient vi sit 10 minutes Susie Arrington [facility] Start: 09-02-2021 End: 09-02-2021 ambulatory SHAIKH Be DAY Facility:[facility] Start: 08-31-2021 End: 08-31-2021 Patient encounter procedure MD Shaikh Day Work Phone: [facility] Start: 08-29-2021 Registered Recurring MD Shaikh Day Work Phone: [facility] [address] Start: 08-24-[address] Facility :[facility] Start: 08-02-2021 End: 08-02-2021 ambulatory Susiejennifer Arrington Other [facility] Other Start: 08-02-2021 End: 08-02-2021 Patient encounter procedure Susiejennifer Arrington [facility] Start: 07-29-2021 End: 07-29-2021 ambulatory DE OLIVEIRA H FAWWAD Facility:[facility] Start: 07-12-2021 End: 07-12-2021 ambulatory Susiejennifer Arrington Other [facility] Other Start: 07-12-2021 Office outpatient vi sit 15 minutes Susie Arrington [facility] Start: 07-12-2021 End: 07-12-2021 Patient encounter procedure MD Shaikh Day Work Phone: [facility] Start: 06-15-2021 End: 06-15-2021 Discharged Recurring MD Shaikh Day Work Phone: [facility] [address] Start: 05-31-2021 End: 05-31-2021 ambulatory Susie Arrington Other [facility] Other Start: 05-31-2021 Postop follow up vis it related to original px Susie Calvey [facility] Start: 05-08-2021 End: 05-08-2021 ambulatory DE OLIVEIRA H FAWWAD Facility:[facility] Start: 05-03-2021 End: 05-03-2021 ambulatory Susiejennifer Arrington Other [facility] Other Start: 05-03-2021 Postop follow up vis it related to original px Susie Calvey [facility] Start: 03-30-2021 End: 03-31-2021 ambulatory DE OLIVEIRA H FAWWAD Facility:[facility] Start: 03-02-2021 End: 03-02-2021 ambulatory Denver Juarez Other [facility] Other Start: 03-02-2021 Office outpatient vi sit 15 minutes Denver Juarez [facility] Vascular Surgery Start: 12-01-2020 Office outpatient vi sit 25 minutes Denver Juarez [facility] Vascular Surgery Start: 11-10-2020 Office outpatient vi sit 15 minutes Denver Juarez [facility] Vascular Surgery Procedures Date Procedure Procedure Detail Performing Clinician Start: 06-24-2024 MRI HEAD/BRAIN WO/W CONTR Jameson Tucker ENTRY LEVEL FINANCE Work Phone: Start: 06-24-2024 MR CERVICAL SPINE WO/W CON Jameson Marcusoll ENTRY LEVEL FINANCE Work Phone: Start: 06-24-2024 [facility] CREATININE Jameson Gibbs jason ENTRY LEVEL FINANCE Work Phone: Start: 05-12-2024 ALL CBC WITH AUTO DIFF Cindy Heaven ENTRY LEVEL FINANCE Work Phone: Start: 01-21-2024 Urnls dip stick/tabl et rgnt non-auto w/o micrscp Cindy Collado ENTRY LEVEL FINANCE Work Phone: Start: 01-21-2024 URINARY TRACT INFECT ION (HTRX) Cindy Heaven ENTRY LEVEL FINANCE Work Phone: Start: 11-16-2023 [facility] UA (CLEAN/CATCH) MICROSCOPIC IF INDICATE Cindy Heaven ENTRY LEVEL FINANCE Work Phone: Start: 10-26-2023 ALL CBC WITH AUTO DIFF Cindy Heaven ENTRY LEVEL FINANCE Work Phone: Start: 08-08-2023 Doppler ultrasonogra phy of bilateral [...] hand MD Shaikh Day Work Phone: Start: 05-12-2021 End: 05-12-2021 Colonoscopy Cindy Collado ENTRY LEVEL FINANCE Work Phone: Arthroplasty of knee Carmen Ingrid Blood culture for ba cteria, including anaerobic screen MD Shaikh Day Work Phone: Breast surgery (qual ifier value) Carmen Kimo Bypass of stomach [facility] SARS-CoV-2, Influenz a & RSV (PCR) MD Shaikh Day Work Phone: Urine culture MD Shaikh Geovani dykes Work Phone: Plan of Treatment Date Care Activity Detail Author Start: 05-13-2031 Screening for malign ant neoplasm of colon [facility] Start: 11-18-2030 DTaP,Tdap and Td Vac cines (2 - Tdap) DTaP,Tdap and Td Vaccines (2 - Tdap) [facility] Start: 12-11-2024 Influenza vaccination Influenza Vacc ine (#1) [facility] Comment on above: Postponed from 10/12 (Patient Does Not Have Time) Start: 08-13-2024 End: 08-13-2024 Patient encounter procedure 08/13/2024 2:40 PM EDT Office Visit [place] [phone] Jameson Ceballos, ENTRY LEVEL FINANCE [address] [place] [address], [place] [address] [facility] [place] Start: 08-11-2024 End: 08-11-2024 Patient encounter procedure 08/11/2024 9:00 AM EDT Office Visit [facility] [address] [place] [phone] Cindy Collado NP [address] [place] [address] [facility] Start: 07-15-2024 End: 07-15-2024 Patient encounter procedure 07/15/2024 10:20 AM EDT [facility] [place] [place] [phone] Jameson Ceballos NP [address] [place] [phone] [facility] [place] Start: 07-01-2024 Adult BMI Screening Adult BMI Screen ing [facility] Start: 07-01-2024 Tobacco Screening Tobacco Screening [facility] Start: 06-30-2024 End: 06-30-2024 Patient encounter procedure 06/30/2024 9:00 AM EDT Office Visit [facility] [place] [phone] [facility] [place] Start: 06-15-2024 End: 06-15-2024 Patient encounter procedure 06/15/2024 10:30 AM EDT Office Visit [facility] [place] [phone] Chaim Noel, PhD [address] [place], [place] [phone] [facility] [place] Start: 06-07-2024 End: 06-01-2025 Cobalamin (Vitamin B12) [Mass/volume] in Serum or Plasma Vitamin B12 Lab Routine Ataxia Expressive aphasia Memory difficulty Expected: 06/07/2024 (Approximate), Expires: 06/01/2025 [facility] Work Phone: Comment on above: Expected: 06/07/2024 (Approximate), Expires: 06/01/2025 Start: 06-07-2024 End: 06-07-2025 MR Brain WO and W contrast IV MR brain w and wo contrast routine Imaging Routine Ataxia Gait instability Expressive aphasia Memory difficulty History of ischemic stroke Expected: 06/07/2024 (Approximate), Expires: 06/07/2025 [facility] Comment on above: Expected: 06/07/2024 (Approximate), Expires: 06/07/2025 Start: 06-07-2024 End: 06-07-2025 MR Cervical spine WO and W contrast IV MR cervical spine w and wo contrast Imaging Routine Ataxia Gait instability Expected: 06/07/2024 (Approximate), Expires: 06/07/2025 [facility] Comment on above: Expected: 06/07/2024 (Approximate), Expires: 06/07/2025 Start: 06-07-2024 End: 06-07-2025 Thyrotropin [Units/volume] in Serum or Plasma TSH Lab Routine Ataxia Expressive aphasia Memory difficulty Expected: 06/07/2024 (Approximate), Expires: 06/07/2025 [facility] Comment on above: Expected: 06/07/2024 (Approximate), Expires: 06/07/2025 Start: 2024 End: 2024 Patient encounter procedure 2024 10:30 AM EDT Office Visit [facility] [address] [place] [address] Cindy Collado NP [address] [place] [address] Arrived [facility] Comment on above: Arrived Start: 06-02-2024 Medicare Annual Well ness (AWV) Medicare Annual Wellness (AWV) [facility] Start: 06-01-2024 End: 06-01-2024 Patient encounter procedure JAIME [facility] Comment on above: Arrived Start: 05-12-2024 End: 05-12-2025 Basic metabolic 1998 panel - Serum or Plasma Basic metabolic panel Lab Routine Primary hypertension (CMS/HCC) Expected: 05/12/2024 (Approximate), Expires: 05/12/2025 [facility] Comment on above: Expected: 05/12/2024 (Approximate), Expires: 05/12/2025 Start: 05-12-2024 End: 05-12-2025 CBC W Auto Differential panel - Blood CBC and differential Lab Routine Cerebrovascular accident (CVA), unspecified mechanism (CMS/HCC) Expected: 05/12/2024 (Approximate), Expires: 05/12/2025 [facility] Work Phone: Comment on above: Expected: 05/12/2024 (Approximate), Expires: 05/12/2025 Start: 03-20-2024 Adult BMI Screening Adult BMI Screen ing [facility] Start: 03-20-2024 Depression Screening Depression Scre ening [facility] Start: 03-20-2024 Tobacco Screening Tobacco Screening [facility] Start: 02-20-2024 Ankle brachial press ure index [facility] Start: 02-03-2024 End: 02-03-2024 Patient encounter procedure 02/03/2024 9:20 AM EST Office Visit [facility] [address] [facility] [address] [place] [phone] Jameson Ceballos, SANDRA [address] [place] [phone] [facility] Start: 01-21-2024 End: 01-20-2025 Bacteria identified in Urine by Culture Urine culture (clean catch) Microbiology Routine UTI symptoms Expected: 01/21/2024 (Approximate), Expires: 01/20/2025 [facility] Work Phone: Comment on above: Expected: 01/21/2024 (Approximate), Expires: 01/20/2025 Start: 01-21-2024 End: 01-20-2025 URINARY TRACT INFECTION (HTRX) URINARY TRACT INFECTION (HTRX) Lab Routine UTI symptoms Expected: 01/21/2024 (Approximate), Expires: 01/20/2025 [facility] Comment on above: Expected: 01/21/2024 (Approximate), Expires: 01/20/2025 Start: 01-21-2024 End: 01-21-2024 Patient encounter procedure 01/21/2024 9:40 AM EST Office Visit [facility] [address] [place] [address] Cindy Collado NP [address] [place] [address] [facility] Start: 01-14-2024 End: 01-14-2024 Patient encounter procedure 01/14/2024 11:00 AM EST Office Visit [facility] [address] [place] [phone] Martin Espinosa MD [address] [place] [address], [address], [address], [address] [place] [phone] [facility] Start: 12-24-2023 End: 12-24-2023 Patient encounter procedure 12/24/2023 9:15 AM EST Office Visit [facility] [place] [address] [place] [phone] Aime Walls DO [address] [place] [address] [facility] Start: 12-09-2023 End: 12-09-2023 Chart abstracting 12/09/[address] [facility] [address] [address] [place] [phone] Nakul Zazueta, [address] [place] [address] [facility] Start: 12-09-2023 End: 12-09-2023 Patient encounter procedure 12/09/2023 9:00 AM EDT Office Visit [facility] [address] [address] [place] [address] Nakul Zazueta, [address] [place] [phone] [facility] Start: 12-02-2023 End: 12-01-2024 RF Esophagus Views W barium contrast PO FL esophagus barium swallow Imaging Routine Oropharyngeal dysphagia Expected: 12/02/2023 (Approximate), Expires: 12/01/2024 [facility] Comment on above: Expected: 12/02/2023 (Approximate), Expires: 12/01/2024 Start: 12-02-2023 End: 12-01-2024 RF Pharynx and Cervical esophagus Views W barium contrast PO FL esophagus pharynx Imaging Routine Oropharyngeal dysphagia Expected: 12/02/2023 (Approximate), Expires: 12/01/2024 [facility] Work Phone: Comment on above: Expected: 12/02/2023 (Approximate), Expires: 12/01/2024 Start: 12-02-2023 End: 12-02-2023 [facility] [place] Comment on above: Oropharyngeal dyspha kaushik Start: 10-30-2023 End: 10-29-2024 Bacteria identified in Urine by Culture Urine culture (clean catch) Microbiology Routine Urinary tract infection symptoms Expected: 10/30/2023 (Approximate), Expires: 10/29/2024 [facility] Work Phone: Comment on above: Expected: 10/30/2023 (Approximate), Expires: 10/29/2024 Start: 10-30-2023 End: 10-29-2024 Urinalysis complete panel - Urine Urinalysis with reflex microscopic (clean catch) Lab Routine Urinary tract infection symptoms Expected: 10/30/2023 (Approximate), Expires: 10/29/2024 [facility] Comment on above: Expected: 10/30/2023 (Approximate), Expires: 10/29/2024 Start: 10-22-2023 End: 10-21-2024 Albumin, urine, random Albumin, urine, random Lab Routine Primary hypertension (CMS/HCC) Expected: 10/22/2023 (Approximate), Expires: 10/21/2024 [facility] Comment on above: Expected: 10/22/2023 (Approximate), Expires: 10/21/2024 Start: 10-22-2023 End: 10-21-2024 CBC W Auto Differential panel - Blood CBC and differential Lab Routine Cerebrovascular accident (CVA), unspecified mechanism (CMS/HCC) Atherosclerosis of coronary artery of [place] heart, unspecified vessel or lesion type, unspecified whether angina present (CMS/HCC) Expected: 10/22/2023 (Approximate), Expires: 10/21/2024 [facility] Work Phone: Comment on above: Expected: 10/22/2023 (Approximate), Expires: 10/21/2024 Start: 10-22-2023 End: 10-21-2024 Comprehensive metabolic 2000 panel - Serum or Plasma Comprehensive metabolic panel Lab Routine Primary hypertension (CMS/HCC) Mixed hyperlipidemia (CMS/HCC) Expected: 10/22/2023 (Approximate), Expires: 10/21/2024 [facility] Comment on above: Expected: 10/22/2023 (Approximate), Expires: 10/21/2024 Start: 10-22-2023 End: 10-21-2024 Lipid 1996 panel - Serum or Plasma Lipid panel Lab Routine Cerebrovascular accident (CVA), unspecified mechanism (CMS/HCC) Atherosclerosis of coronary artery of [place] heart, unspecified vessel or lesion type, unspecified whether angina present (CMS/HCC) Mixed hyperlipidemia (CMS/HCC) Expected: 10/22/2023 (Approximate), Expires: 10/21/2024 [facility] Comment on above: Expected: 10/22/2023 (Approximate), Expires: 10/21/2024 Start: 10-22-2023 End: 10-21-2024 Urinalysis complete panel - Urine Urinalysis with reflex microscopic (clean catch) Lab Routine Primary hypertension (CMS/HCC) Expected: 10/22/2023 (Approximate), Expires: 10/21/2024 [facility] Comment on above: Expected: 10/22/2023 (Approximate), Expires: 10/21/2024 Start: 10-22-2023 End: 10-22-2023 Patient encounter procedure [facility] Comment on above: Arrived Start: 10-13-2023 Influenza vaccination [facility] Start: 08-08-2023 Patient referral [facility] Work Phone: Start: 08-08-2023 Doppler ultrasonogra phy of bilateral carotid arteries US carotid doppler BI [facility] Start: 07-02-2023 End: 07-02-2023 Patient encounter procedure 07/02/2023 9:00 AM EDT Office Visit [facility] [address] [place] [phone] Martin Espinosa MD [address] [place] [address], [address], [address], [address] [place] [phone] [facility] Start: 2023 End: 2023 Patient encounter procedure 2023 6:30 PM EDT Office Visit [facility] [address] [place] [phone] Shaikh Day MD [address] [place] [phone] [facility] Start: 05-11-2023 Bacteria identified in Urine by Culture [facility] Start: 04-13-2023 [facility] Start: 04-12-2023 Hospital admission [facility] Start: 04-12-2023 Cerebral Embolic Filtration, Extracorporeal Flow Reversal Circuit from Right Common Carotid Artery, Percutaneous Approach, [employer] Cerebral Embolic Filtration, Extracorporeal Flow Reversal Circuit from Right Common Carotid Artery, Percutaneous Approach, [employer] [facility] Start: 04-12-2023 Dilation of Right Internal Carotid Artery with Intraluminal Device, Open Approach Dilation of Right Internal Carotid Artery with Intraluminal Device, Open Approach [facility] Start: 03-12-2023 End: 03-12-2023 Patient encounter procedure 03/12/2023 10:00 AM EST Office Visit [facility] [address] [place] [phone] Alan Elmore MD [address] [place] [address], [address], [address], [address] [place], [place] [phone] [facility] Start: 10-12-2022 COVID-19 Vaccine ( season) COVID-19 Vaccine () [facility] Start: 03-02-2022 Bacteria identified in Urine by Culture Urine Culture [facility] Start: 11-22-2021 Comprehensive metabo lic 2000 panel - Serum or Plasma [facility] Start: 11-22-2021 Magnesium measurement F [facility] Start: 11-22-2021 End: 11-22-2021 [facility] Start: 11-21-2021 Patient referral to dietitian [facility] Start: 11-21-2021 Referral to physical therapy attendant [facility] Start: 11-21-2021 Hospital admission [facility] Start: 11-21-2021 Physical therapy procedure [facility] Start: 11-21-2021 Referral to occupati onal therapist [facility] Start: 11-21-2021 [facility] Start: 08-31-2021 Doppler ultrasonogra phy of bilateral carotid arteries US carotid doppler BI [facility] Start: 08-31-2021 US.doppler Carotid arteries - bilateral [facility] Work Phone: Start: 2013 Fall Risk Screening [facility] Start: 1998 Administration of varicella zoster vaccine Zoster (Shingles) Vaccine (1 of 2) [facility] Start: 1988 Screening for malign ant neoplasm of breast Mammogram [facility] Start: 1966 Adult BMI Follow Up Plan Adult BMI F ollow Up Plan [facility] Start: 1966 Adult BMI Screening Adult BMI Screen ing [facility] Start: 1960 Depression Screening Depression Scre ening [facility] Start: 1960 Tobacco Screening Tobacco Screening [facility] Start: 1948 Medicare Annual Well ness (AWV) Medicare Annual Wellness (AWV) [facility] Start: 1948 Medicare Annual Well ness Visit Medicare Annual Wellness Visit [facility] Start: 1948 Screening for malign ant neoplasm of colon [facility] Ankle brachial press ure index [facility] Bacteria identified in Blood by Culture [facility] Bacteria identified in Urine by Culture [facility] Blood culture for bacteria, including anaerobic screen Blood Culture [facility] Patient Education [facility] Work Phone: Patient referral [facility] Work Phone: Urine culture Urine Culture [facility] US.doppler Carotid arteries - [facility] US.doppler Carotid arteries - [facility] US.doppler Carotid arteries - [facility] Immunizations Immunization Date Immunization Notes Care Provider [facility] 11-09-2023 Seasonal trivalent influenza vaccine, adjuvanted, preservative free Cindy Collado NP Work Phone: [facility] 11-09-2023 influenza virus vaccine, unspecified formulation Aime Kavita Work Phone: [facility] 11-24-2022 influenza virus vaccine, unspecified formulation Carmen Quintero [facility] 11-24-2022 Influenza, Seasonal, Quadrivalent, Adjuvanted Shaikh Barb VIDES Work Phone: [facility] 11-24-2022 Pneumococcal Conjuga te PCV 20 Shaikh Barb VIDES Work Phone: [facility] 11-24-2022 RSV, recombinant, protein subunit RSVpreF, adjuvant reconstitu, 120mcg/0.5mL, PF (Arexvy) Shaikh Barb VIDES Work Phone: [facility] 01-20-2022 influenza virus vaccine, unspecified formulation Carmen Quintero [facility] 01-20-2022 Influenza, Seasonal, Quadrivalent, Adjuvanted Shaikh Barb VIDES Work Phone: [facility] 11-26-2020 influenza virus vaccine, unspecified formulation Carmen Orvicky [facility] 11-26-2020 Influenza, Seasonal, Quadrivalent, Adjuvanted Shaikh Barb VIDES Work Phone: [facility] 11-18-2020 diphtheria, tetanus toxoids and pertussis vaccine Shaikh Barb VIDES Work Phone: [facility] 06-11-2020 COVID-19 [id number].COV2.S (Clarence) MD Shaikh Day Work Phone: [facility] 12-09-2019 influenza virus vaccine, unspecified formulation Carmen Quintero [facility] 12-09-2019 Influenza, High-dose Seasonal, Quadrivalent, Preservative Free Shaikh Barb VIDES Work Phone: [facility] 12-22-2018 influenza virus vaccine, unspecified formulation Carmen Quintero [facility] 12-22-2018 influenza, high dose seasonal, preservative-free Shaikh Barb VIDES Work Phone: [facility] 02-17-2009 novel [id number], preservative-free, injectable Shaikh Barb VIDES Work Phone: [facility] 03-25-2001 influenza virus vaccine, unspecified formulation BERNICE CLEMENTE [facility] 03-25-2001 Td(adult) unspecifie d formulation BERNICE CLEMENTE [facility] Payers Date Payer Category Payer Medicare [id number] 2023 Unknown [id number] 2021 Medicare (Managed Care) [employer] [id number] 2018 Medicare [id number]. 1.13.693.2 .[id number] 2008 Unknown [id number] 1959 Medicare [id number] 2..840.1.734850.19 1959 Self-pay [id number] 1948 Unknown [id number] 2.16.840.1.912857.3.579.2 .159 1948 Unknown [id number] 2.16.840.1.410383.3.579.2 .593 1948 Unknown [id number] 2.16.840.1.399854.3.579.2 .593 1948 Unknown [id number] 2.16.840.1.095277.3.579.2 .593 1948 Unknown [id number] 2.16.840.1.424457.3.579.2 .593 1948 Unknown [id number] 2.16.840.1.407228.3.579.2 .593 1948 Unknown [id number] 2.16.840.1.015997.3.579.2 .593 1948 Unknown [id number] 2.16.840.1.280157.3.579.2 .593 1948 Unknown [id number] 2.16.840.1.848822.3.579.2 .593 1948 Unknown [id number] 2.16.840.1.734357.3.579.2 .593 1948 Unknown [id number] 2.16840.1.038550.3.579.2 .593 1948 Unknown [id number] 2.16.840.1.886605.3.579.2 .593 1948 Unknown [id number] 2.16.840.1.280447.3.579.2 .593 1948 Unknown [id number] 2.16.840.1.988935.3.579.2 .593 1948 Unknown [id number] 2.16.840.1.230251.3.579.2 .593 1948 Unknown [id number] 2.16.840.1.146628.3.579.2 .593 1948 Unknown [id number] 2.16.840.1.860175.3.579.2 .593 1948 Unknown [id number] 2.16.840.1.770575.3.579.2 .593 1948 Unknown [id number] 2.16.840.1.106183.3.579.2 .593 1948 Unknown [id number] 2.16.840.1.603878.3.579.2 .1285 1948 Unknown [id number] 2.16.840.1.811602.3.579.2 .1285 1948 Unknown [id number] 2.16.840.1.411036.3.579.2 .1285 1948 Unknown [id number] 2.16.840.1.637460.3.579.2 .1285 1948 Unknown [id number] 2.16.840.1.244041.3.579.2 .1285 1948 Unknown [id number] 2.16.840.1.375259.3.579.2 .1285 1948 Unknown [id number] 2.840.1.075255.3.579.2 .1285 1948 Unknown [id number] 2.16840.1.542710.3.579.2 .1285 1948 Unknown [id number] 2.16.840.1.983175.3.579.2 .1285 1948 Unknown [id number] 2.16.840.1.066253.3.579.2 .1285 1948 Unknown [id number] 2.16840.1.741339.3.579.2 .1285 1948 Unknown [id number] 2.16.840.1.078081.3.579.2 .1285 1948 Unknown [id number] 2.16.840.1.600962.3.579.2 .1285 1948 Unknown [id number] 2.16.840.1.508655.3.579.2 .1285 1948 Unknown [id number] 2.16.840.1.668203.3.579.2 .1948 Unknown [id number] 2.16.840.1.923223.3.579.2 .727 1948 Unknown [id number] 2.16.840.1.522005.3.579.2 .1948 Unknown [id number] 2.16.840.1.378125.3.579.2 .1948 Unknown [id number] 2.16.840.1.290146.3.579.2 .1948 Unknown [id number] 2.16.840.1.504685.3.579.2 .1948 Unknown [id number] 2.16840.1.930485.3.579.2 .1948 Unknown [id number] 2.16.840.1.748723.3.579.2 .1948 Unknown [id number] 2.16840.1.555715.3.579.2 .1948 Unknown [id number] 2.16.840.1.131528.3.579.2 .1948 Unknown [id number] 2.16.840.1.087200.3.579.2 .1948 Unknown [id number] 2.16.840.1.880346.3.579.2 .125 1948 Unknown [id number] 2.16.840.1.039582.3.579.2 .1258 1948 Unknown [id number] 2.16.840.1.469383.3.579.2 .125 1948 Unknown [id number] 2.16.840.1.359635.3.579.2 .1258 1948 Unknown [id number] 2.16.840.1.405616.3.579.2 .125 1948 Unknown [id number] 2.16.840.1.643597.3.579.2 .1259 1948 Unknown [id number] 2.16.840.1.990476.3.579.2 .125 1948 Unknown [id number] 2.16.840.1.218730.3.579.2 .125 1948 Unknown [id number] 2.16.840.1.164373.3.579.2 .125 1948 Unknown [id number] 2.16.840.1.365022.3.579.2 .125 1948 Unknown [id number] 2.16.840.1.942299.3.579.2 .125 1948 Unknown [id number] 2.16.840.1.907692.3.579.2 .72 1948 Unknown [id number] 2.16840.1.054723.3.579.2 .1948 Unknown [id number] 2.16840.1.125468.3.579.2 .72 1948 Unknown [id number] 2.16840.1.125401.3.579.2 .72 1948 Unknown [id number] 2.16840.1.767469.3.579.2 .72 1948 Unknown [id number] 2.16840.1.671741.3.579.2 .72 1948 Unknown [id number] 2.16.840.1.432601.3.579.2 .72 1948 Unknown [id number] 2.16.840.1.699076.3.579.2 .727 Medicare Medicare [id number] Unknown [id number] 2.16.840.1.127475.3.579.2 .531 Unknown [id number] 2.16840.1.425724.3.579.2 .531 Unknown [id number] 2.840.1.053871.3.579.2 .531 Unknown [id number] 2.840.1.912208.3.579.2 .531 Unknown [id number] 2.840.1.681777.3.579.2 .531 Unknown [id number] 2.0.1.742176.3.579.2 .531 Social History Date Type Detail Facility Start: 03-06-2023 End: 01-27-2024 Sex Assigned At [facility] Start: 03-31-2021 End: 05-15-2023 Tobacco smoking status NHIS Ex-smoker (finding) [facility] Start: 1950 Sex Assigned At Female F [facility] Start: 03-07-2023 End: 07-16-2024 Tobacco smoking status Never smoked tobacco (finding) [facility] History of tobacco use Current smoker [facility] History of tobacco use Cigarette Smoker [facility] Start: 02-20-2023 End: 05-15-2023 Tobacco use and exposure Smokeless tobacco non-user [facility] Start: 03-06-2023 End: 2024 Alcohol intake Lifetime non-drinker (finding) [facility] Start: 03-06-2023 End: 01-27-2024 History of Social function [facility] Start: 1950 Sex Assigned At Not on file [facility] Tobacco smoking status Never [facility] History of tobacco use Passive smoker [facility] Do you belong to any clubs or organizations such as latter day groups, unions, fraternal or athletic groups, or school groups? No [facility] Are you now , , , , never or living with a partner? [facility] How often to you hav e a drink containing alcohol? Never [facility] Do you feel stress - tense, restless, nervous, or anxious, or unable to sleep at night because your mind is troubled all the time - these days [OSQ] Very much [facility] (I/We) worried shanna er (my/our) food would run out before (I/we) got money to buy more. Never true [facility] Start: 02-20-2024 End: 02-21-2024 Sex Female (finding) [facility] Do you feel stress - tense, restless, nervous, or anxious, or unable to sleep at night because your mind is troubled all the time - these days [OSQ] Not at all [facility] Start: 08-25-2018 End: 03-20-2023 Alcoholic beverage intake Current non-drinker of alcohol (finding) [employer] Sexual Orientation [facility] How often do you nee d to have someone help you when you read instructions, pamphlets, or other written material from your doctor or pharmacy [SILS] Sometimes [facility] Medical Equipment Procedure Code Equipment Code Equipment Origin al Text Equipment Identifier Dates Transcarotid artery revascularization (TCAR) Bare-metal carotid artery stent [id number] FDA Start: 04-12-2023 ORIF, fracture, wrist Orthopaedi c fixation plate, non-bioabsorbable, sterile ()[id number] FDA Start: 03-31-2021 ORIF, fracture, wrist Orthopaedi c bone screw, non-bioabsorbable, non-sterile ()[id number] FDA Start: 03-31-2021 ORIF, fracture, wrist Orthopaedi c bone screw, non-bioabsorbable, non-sterile ()[id number] FDA Start: 03-31-2021 ORIF, fracture, wrist Orthopaedi c bone screw, non-bioabsorbable, non-sterile ()[id number] FDA Start: 03-31-2021 ORIF, fracture, wrist Orthopaedi c bone screw, non-bioabsorbable, non-sterile ()[id number] FDA Start: 03-31-2021 Endarterectomy, carotid Cardiova scular patch, animal-derived ()[id number] FDA Start: 04-06-2020 Sys Crd Rvl Linq Rpl [id number] - [id number] - [id number] Start: 04-08-2018 Goals Date Patient Goal [...] therapy. Functional Status Date Assessment Result Facility 04-14-2024 Functional Status N/A [facility] 04-01-2024 Functional Status N/A [facility] 08-21-2023 Functional Status N/A [facility] 07-15-2023 Functional Status N/A [facility] 04-12-2023 Functional status Patient at Baseline [facility] Work Phone: 03-07-2023 Functional Status N/A [facility] 11-22-2021 Functional status Patient at Baseline [facility] Work Phone: 11-21-2021 Functional status Patient Not at Baseline [facility] Work Phone: Mental Status Date Assessment Result Facility 04-12-2023 Cognitive function Cognitive Sta tus Patient at Baseline [facility] Work Phone: 11-22-2021 Cognitive function Cognitive Sta tus Patient at Baseline [facility] Work Phone: 11-21-2021 Cognitive function Cognitive Sta tus Patient Not at Baseline [facility] Work Phone: Clinical Notes 11-10-2020 to 07-22-2024 Chaim Noel, PhD - 06/30/2024 9:00 AM Dank Noel, PhD - 06/15/2024 10:30 AM Edwin Collado, SANDRA - 2024 12:41 PM EDTHUMBARGERLYNSEY - 2024 10:30 AM EDT Note Date & Type Note Facility 07-22-2024 Note DC Cardiology - [facility] Subjective Ozzie Gifford is a 74 y.o. year old female patient being seen for 1 year follow up. Patient states she has not been feeling good. Patient states she has left sided chest pain, which occurs at random times, usually last about 1/2, sitting relieves the pain or a glass of water. Patient complains of leg swelling, dizziness. Patient Active Problem List Diagnosis Carotid artery stenosis Cerebrovascular accident (CMS/HCC) Contusion of knee Coronary atherosclerosis Hypertension Knee joint replacement by other means Osteoarthrosis, unspecified whether generalized or localized, lower leg Reflex sympathetic dystrophy of lower limb Status post placement of implantable loop recorder Tear of medial cartilage or meniscus of knee, current Mixed hyperlipidemia Bradycardia Bilateral lower extremity edema Atypical angina SARAVIA (dyspnea on exertion) JASEN (acute kidney injury) AMS (altered mental status) Anemia Aphasia due to acute stroke (CMS/HCC) Confusion Dysarthria Dysphagia Dystonia H/O traumatic brain injury Headache History of cerebrovascular accident (CVA) with residual deficit Hospital discharge follow-up Impaired mobility and activities of daily living Migraine with aura and without status migrainosus, not intractable Overflow incontinence of urine Recurrent major depressive disorder, in full remission Encounter for prophylactic measures, unspecified URTI (acute upper respiratory infection) Dizziness and giddiness Dysuria Incontinence without sensory awareness Internal carotid artery stent present Peripheral vertigo involving left ear Urinary tract infection symptoms UTI (urinary tract infection) White matter disease Acute diffuse otitis externa of both ears CRYSTAL (generalized anxiety disorder) Heart failure, unspecified (CMS/HCC) Infection due to extended spectrum beta lactamase (ESBL) producing bacteria Iron deficiency Muscle spasm Psychophysiological insomnia Family History Problem Relation Name Age of Onset Hypertension Mother Hypertension Father Heart attack Brother Social History Tobacco Use Smoking status: Never Smokeless tobacco: Never Substance Use Topics Alcohol use: Yes Comment: occasional Drug use: Never LEE Ozzie is seen in follow-up. She is a 74-year-old woman. She was previously evaluated in cardiology clinic because of upcoming carotid endarterectomy surgery. She has prior history of stroke. Part of the evaluation she underwent cardiac catheterization in 2020 due to symptoms of angina and this showed moderate nonhemodynamically significant coronary artery disease. This was left for medical therapy. She underwent right carotid endarterectomy in April 2020. She was on dual antiplatelet therapy after the carotid endarterectomy. She is currently on aspirin only. At visit of 03/05/2022 with nurse practitioner Diana Fonseca, she was complaining of symptoms of chest discomfort that were suggestive of possible angina. Imdur was added. In the past year she was admitted to the [facility] in October 2022 and February 2023 due to TIA symptoms. She and her son tell me that she underwent redo right carotid surgery in 2023 at [facility]. Today she reports that she has been having symptoms of chest pain over the past several months. The chest pain is located to the center of the chest. It feels as a knotting in the chest whenever she starts to do physical activity including walking. The pain is relieved by rest. There is no radiation. She has dyspnea on exertion as well as lower extremity edema. No palpitations. Review of Systems Eyes: Positive for blurred vision and double vision. Cardiovascular: Positive for chest pain and leg swelling. Respiratory: Positive for shortness of breath. Skin: Positive for color change. Musculoskeletal: Positive for muscle weakness. Genitourinary: Positive for bladder incontinence. Neurological: Positive for dizziness, headaches, light-headedness, loss of balance and weakness. All other systems reviewed and are negative. Objective Visit Vitals BP 127/62 (BP Location: Left arm, Patient Position: Sitting) Pulse 66 Ht 1.626 m (5' 4 ) Wt 69.9 kg (154 lb) SpO2 99% BMI 26.43 kg/m??? Smoking Status Never BSA 1.78 m??? Physical Exam Constitutional: Appearance: She is well-developed. She is not ill-appearing. HENT: Head: Normocephalic and atraumatic. Nose: Nose normal. Eyes: General: No scleral icterus. Pupils: Pupils are equal, round, and reactive to light. Neck: Thyroid: No thyromegaly. Vascular: Carotid bruit (bilateral) present. No JVD. Cardiovascular: Rate and Rhythm: Normal rate and regular rhythm. Pulses: Radial pulses are 2+ on the right side and 2+ on the left side. Heart sounds: Normal heart sounds. No murmur heard. No friction rub. No gallop. Pulmonary: (more content not included)... [facility] 07-16-2024 Hospital Discharge instructions Patient Education 07/16/2024 11:35:13 Overactive Bladder, Adult Overactive Bladder, Adult Overactive bladder is a condition in which a person has a sudden and frequent need to urinate. A person might also leak urine if he or she cannot get to the bathroom fast enough (urinary incontinence). Sometimes, symptoms can interfere with work or social activities. What are the causes? Overactive bladder is associated with poor nerve signals between your bladder and your brain. Your bladder may get the signal to empty before it is full. You may also have very sensitive muscles that make your bladder squeeze too soon. This condition may also be caused by other factors, such as: Medical conditions: ?Urinary tract infection. ?Infection of nearby tissues. ?Prostate enlargement. ?Bladder stones, inflammation, or tumors. ?Diabetes. ?Muscle or nerve weakness, especially from these conditions: ?A spinal cord injury. ?Stroke. ?Multiple sclerosis. ?Parkinson's disease. Other causes: ?Surgery on the uterus or urethra. ?Drinking too much caffeine or alcohol. ?Certain medicines, especially those that eliminate extra fluid in the body (diuretics). ?Constipation. What increases the risk? You may be at greater risk for overactive bladder if you: Are an older adult. Smoke. Are going through menopause. Have prostate problems. Have a neurological disease, such as stroke, dementia, Parkinson's disease, or multiple sclerosis (MS). Eat or drink alcohol, spicy food, caffeine, and other things that irritate the bladder. Are overweight or obese. What are the signs or symptoms? Symptoms of this condition include a sudden, strong urge to urinate. Other symptoms include: Leaking urine. Urinating 8 or more times a day. Waking up to urinate 2 or more times overnight. How is this diagnosed? This condition may be diagnosed based on: Your symptoms and medical history. A physical exam. Blood or urine tests to check for possible causes, such as infection. You may also need to see a health care provider who specializes in urinary tract problems. This is called a urologist. How is this treated? Treatment for overactive bladder depends on the cause of your condition and whether it is mild or severe. Treatment may include: Bladder training, such as: ?Learning to control the urge to urinate by following a schedule to urinate at regular intervals. ?Doing Kegel exercises to strengthen the pelvic floor muscles that support your bladder. Special devices, such as: ?Biofeedback. This uses sensors to help you become aware of your body's signals. ?Electrical stimulation. This uses electrodes placed inside the body (implanted) or outside the body. These electrodes send gentle pulses of electricity to strengthen the nerves or muscles that control the bladder. ?Women may use a plastic device, called a pessary, that fits into the vagina and supports the bladder. Medicines, such as: ?Antibiotics to treat bladder infection. ?Antispasmodics to stop the bladder from releasing urine at the wrong time. ?Tricyclic antidepressants to relax bladder muscles. ?Injections of botulinum toxin type A directly into the bladder tissue to relax bladder muscles. Surgery, such as: ?A device may be implanted to help manage the nerve signals that control urination. ?An electrode may be implanted to stimulate electrical signals in the bladder. ?A procedure may be done to change the shape of the bladder. This is done only in very severe cases. Follow these instructions at home: Eating and drinking Make diet or lifestyle changes recommended by your health care provider. These may include: ?Drinking fluids throughout the day and not only with meals. ?Cutting down on caffeine or alcohol. ?Eating a healthy and balanced diet to prevent constipation. This may include: ?Choosing foods that are high in fiber, such as beans, whole grains, and fresh fruits and vegetables. ?Limiting foods that are high in fat and processed sugars, such as fried and sweet foods. Lifestyle Lose weight if needed. Do not use any products that contain nicotine or tobacco. These include cigarettes, chewing tobacco, and vaping devices, such as e-cigarettes. If you need help quitting, ask your health care provider. General instructions Take aqwd-qka-ufxoxrp and prescription medicines only as told by your health care provider. If you were prescribed an antibiotic medicine, take it as told by your health care provider. Do not stop taking the antibiotic even if you start to feel better. Use any implants or pessary as told by your health care provider. If needed, wear pads to absorb urine leakage. Keep a log to track how much and when you drink, and when you need to urinate. This will help your health care provider monitor your condition. Keep all follow-up visits. This is important. Contact a health care provider if: You have a fever or chills. Your symptoms do not get better with treatment. Your pain and discomfort get worse. You have more frequent urges to urinate. Get help right away if: You are not able to control your bladder. Summary Overactive bladder refers to a condition in which a person has a sudden and frequent need to urinate. Several conditions may lead to an overactive bladder. Treatment for overactive bladder depends on the cause and severity of your condition. Making lifestyle changes, doing Kegel exercises, keeping a log, and taking medicines can help with this condition. This information is not intended to replace advice given to you by your health care provider. Make sure you discuss any questions you have with your health care provider. Document Revised: 10/17/2020 Document Reviewed: 10/17/2020 [email or web address] Patient Education 2023 [employer]. Follow Up Care 07/03/2024 14:11:33 With:[facility] Address: When: Unknown Comments:For procedure as scheduled. [facility] Note Patient Education Obstetrics and Gynecology Overactive Bladder, Adult Overactive bladder is a condition in which a person has a sudden and frequent need to urinate. A person might also leak urine if he or she cannot get to the bathroom fast enough (urinary incontinence). Sometimes, symptoms can interfere with work or social activities. What are the causes? Overactive bladder is associated with poor nerve signals between your bladder and your brain. Your bladder may get the signal to empty before it is full. You may also have very sensitive muscles that make your bladder squeeze too soon. This condition may also be caused by other factors, such as: ??? Medical conditions: ? Urinary tract infection. ? Infection of nearby tissues. ? Prostate enlargement. ? Bladder stones, inflammation, or tumors. ? Diabetes. ? Muscle or nerve weakness, especially from these conditions: ? A spinal cord injury. ? Stroke. ? Multiple sclerosis. ? Parkinson's disease. ??? Other causes: ? Surgery on the uterus or urethra. ? Drinking too much caffeine or alcohol. ? Certain medicines, especially those that eliminate extra fluid in the body (diuretics). ? Constipation. What increases the risk? You may be at greater risk for overactive bladder if you: ??? Are an older adult. ??? Smoke. ??? Are going through menopause. ??? Have prostate problems. ??? Have a neurological disease, such as stroke, dementia, Parkinson's disease, or multiple sclerosis (MS). ??? Eat or drink alcohol, spicy food, caffeine, and other things that irritate the bladder. ??? Are overweight or obese. What are the signs or symptoms? Symptoms of this condition include a sudden, strong urge to urinate. Other symptoms include: ??? Leaking urine. ??? Urinating 8 or more times a day. ??? Waking up to urinate 2 or more times overnight. How is this diagnosed? This condition may be diagnosed based on: ??? Your symptoms and medical history. ??? A physical exam. ??? Blood or urine tests to check for possible causes, such as infection. You may also need to see a health care provider who specializes in urinary tract problems. This is called a urologist. How is this treated? Treatment for overactive bladder depends on the cause of your condition and whether it is mild or severe. Treatment may include: ??? Bladder training, such as: ? Learning to control the urge to urinate by following a schedule to urinate at regular intervals. ? Doing Kegel exercises to strengthen the pelvic floor muscles that support your bladder. ??? Special devices, such as: ? Biofeedback. This uses sensors to help you become aware of your body's signals. ? Electrical stimulation. This uses electrodes placed inside the body (implanted) or outside the body. These electrodes send gentle pulses of electricity to strengthen the nerves or muscles that control the bladder. ? Women may use a plastic device, called a pessary, that fits into the vagina and supports the bladder. ??? Medicines, such as: ? Antibiotics to treat bladder infection. ? Antispasmodics to stop the bladder from releasing urine at the wrong time. ? Tricyclic antidepressants to relax bladder muscles. ? Injections of botulinum toxin type A directly into the bladder tissue to relax bladder muscles. ??? Surgery, such as: ? A device may be implanted to help manage the nerve signals that control urination. ? An electrode may be implanted to stimulate electrical signals in the bladder. ? A procedure may be done to change the shape of the bladder. This is done only in very severe cases. Follow these instructions at home: Eating and drinking ??? Make diet or lifestyle changes recommended by your health care provider. These may include: ? Drinking fluids throughout the day and not only with meals. ? Cutting down on caffeine or alcohol. ? Eating a healthy and balanced diet to prevent constipation. This may include: ? Choosing foods that are high in fiber, such as beans, whole grains, and fresh fruits and vegetables. ? Limiting foods that are high in fat and processed sugars, such as fried and sweet foods. Lifestyle ??? Lose weight if needed. ??? Do not use any products that contain nicotine or tobacco. These include cigarettes, chewing tobacco, and vaping devices, such as e-cigarettes. If you need help quitting, ask your health care provider. General instructions ??? Take oipu-lwb-ckusxff and prescription medicines only as told by your health care provider. ??? If you were prescribed an antibiotic medicine, take it as told by your health care provider. Do not stop taking the antibiotic even if you start to feel better. ??? Use any implants or pessary as told by your health care provider. ??? If needed, wear pads to absorb urine leakage. ??? Keep a log to track how much and when you drink, and whe (more content not included)... [facility] 06-30-2024 History of Present illness Narrative Images from the original note were not included. Neuropsychology Chaim Noel, PhD NEUROPSYCHOLOGICAL EVALUATION Ozzie Gifford is a 74 y.o. female referred for neuropsychological evaluation to assist with facilitating and informing medical differential diagnosis and clinical decision-making. The following information was obtained during an interview with the patient and , as well as review of available records. PRESENTING PROBLEM: Decline in memory and expressive language faculties, along with speech hesitations, over the past 6-8 months. also reported episodes of zoning out and staring off over the past 4-5 months. This occurs a couple times/day, last no more than 5 minutes, and is followed by disorientation. No known triggers. Remains independent in ADLs. Cooking on her own. Managing household responsibilities with occasional assistance from . Continues to independently manage finances without any issues. Independently managing medication. No driving for 4-5 months. No regular exercise. Socially isolated due to family stressors which is a big change. Poor sleep quality, up most of the night. Reported some snoring and gasping (largely due to dysarthria). No pain complaints. Neurological history includes 3 strokes, 2 occurring in 2019 per . MRI of the brain on 03/01/2023 identified multifocal remote infarcts which could contribute to ataxia but unlikely to explain progressive nature per neurology. Neurology raises concern for possible neurodegenerative process such as multiple system atrophy. Recent MoCA . There is concern for primary progressive aphasia vs. vascular dementia. Family neurological history includes mother who had brain metastases. Denied any psychiatric history. No history of alcohol/substance abuse or smoking. [place] language [place]. Competed high school education. 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 Has 2 biological children, one living. Son last year and apparently family is convinced patient and had something to do with this. They have been completely cutoff from family and legal is involved. This is a significant contributing stressor. MEDICAL HISTORY/MEDICATION: MEDICATIONS: Current Outpatient Medications Medication Instructions amLODIPine (NORVASC) 2.5 mg, Oral, Daily ascorbic acid (VITAMIN C) 500 mg, Daily Aspirin Low Dose 81 mg, Daily baclofen (Lioresal) 20 MG tablet Take 1 tablet (20 mg) by mouth in the morning and 1 tablet (20 mg) in the evening and 1 tablet (20 mg) before bedtime. cetirizine (ZyrTEC) 10 MG tablet Take by mouth clonazePAM (KLONOPIN) 0.5 mg, Oral, 2 times daily D-Mannose 500 mg, Daily doxycycline (VIBRA-TABS) 100 mg, 2 times daily estradiol (Estrace) 0.1 MG/GM vaginal cream apply a pea-sized amount vaginally and around the urethra NIGHTLY TIME 3 (THREE) weeks, then 3 (THREE) times per week thereafter ferrous sulfate (FEROSUL) 325 mg, Oral, Daily with breakfast furosemide (LASIX) 20 mg, Daily methenamine hippurate (HIPREX) 1 g, 2 times daily metoprolol succinate XL (TOPROL-XL) 25 mg, Oral, Daily, Do not crush or chew Probiotic Product (PROBIOTIC/PREBIOTIC/CRANBERRY PO) 60 mg, Oral, Daily QUEtiapine (SEROQUEL) 50 mg, Oral, Nightly rosuvastatin (CRESTOR) 20 mg, Oral, Nightly topiramate 50 mg, Oral, Nightly trospium (SANCTURA) 60 mg, 2 times daily ASSESSMENT: Presented to appointment on time, alert, and Ox2, temporally disoriented. Rapport easily established. Good eye contact. Socially appropriate during conversation and testing. Hearing adequate for current purposes. Ambulated via quad cane. Purpose for current evaluation explained and patient agreed to participate. Overall appeared to put forth good effort. Vision/Visuoconstruction: Binocular near-point visual acuity 20/40. Visual hadley full to confrontation. Visuoconstruction 46th %ile. Nonverbal abstract reasoning 84th %ile. Copy of a complex geometric design 2-5th %ile. Motor/Speed of Processing: Right-handed. Core Rescuer strength 21st %ile with right-hand, 2nd %ile with left. Speeded graphomotor transcoding 1st %ile. Attention/Working Memory: Auditory attention/working memory <1st %ile (3 digits forward, 2 digits backward, 2 digits during sequencing). Speeded visual scanning/attention 38th %ile. Speeded visual divided attention 14th %ile. Speech/Language: Fumbled with speech and mixed her words up during the interview. Slow speech production and difficulty expressing self during testing. Comprehension adequate for current purposes. Single-word reading 4th %ile. Generative naming to phonemic and semantic cues <!st %ile. Confrontation naming 1st %ile. Verbal abstract reasoning <1st %ile. Comprehension for complex ideational material <1st %ile. Learning and Memory: Learning of a word list <1st %ile (3-3-4-4-3), delayed recall 16th %ile. Recognition discriminability 2nd %ile. Forced-choice 16/16. Immediate recall for prose passages 1st %ile, delayed 2nd %ile. Recognition 3-9th %ile. Immediate recall for a variety of geometric figures 3rd %ile, delayed 16th %ile. Recognition 17-25th %ile. Executive Functioning: Novel problem-solving and cognitive flexibility 11-16th %ile, 1/6 categories completed in 64 sorts. Responding highly perseverative. Borderline struggles with task conceptualization. Emotional Functioning: Severe depression and anxiety. Denied any thoughts of self-harm. FINDINGS AND RECOMMENDATIONS: CONCLUSIONS: 1. Estimated average pre-morbid intellectual functioning. 2. Preserved visual acuity without signs of visual field cut or neglect. 3. Preserved right-hand gross motor function, moderate to severely deficient with left. 4. Severe depression and anxiety. OPINION: Current neuropsychological evaluation demonstrates nonfluent speech, mixing up words, and slowed speech production during interaction. Additionally, testing revealed significant language struggles expressive > receptive, including naming, verbal fluency, reading, verbal abstract reasoning, verbal learning and memory, as well as comprehension for increasingly complex information. Her deficient language function interfered with performance on other tasks as well. Overall performance and history are most consistent with Primary Progressive Aphasia, exacerbated by severe depression and anxiety, along with high family stress. Suspicion for underlying untreated DULCE MARIA is also likely contributing. RECOMMENDATIONS: Results and recommendations forwarded to treating physician for review during their next appointment. She was encouraged to contact this office with any questions. More aggressive management of the severe depression and anxiety. PSG/HST to assess and treat suspected underlying DULCE MARIA. May benefit from speech therapy intervention to work on compensatory strategies to work around her language deficits. Discourage return to driving. Establish physical activity for optimal cognitive function, sleep, and stress management. May benefit from resources and education found available at www.alz.org, focusing on PPA information. Unfortunately, given extent of language dysfunction and interference across all other domains assessed, future neuropsychological reevaluation is not expected to be beneficial. Thank you for allowing me to participate in the care of this individual. Please contact me with any questions at [phone]. documented in this encounter [facility] 06-15-2024 History of Present illness Narrative Images from the original note were not included. Chaim Noel, PhD NEUROBEHAVIORAL STATUS EXAMINATION Ozzie Gifford is a 74 y.o. female referred for neuropsychological evaluation to assist with facilitating and informing medical differential diagnosis and clinical decision-making. The following information was obtained during an interview with the patient and , as well as review of available records. PRESENTING PROBLEM AND HISTORY Decline in memory and expressive language faculties, along with speech hesitations, over the past 6-8 months. also reported episodes of zoning out and staring off over the past 4-5 months. This occurs a couple times/day, last no more than 5 minutes, and is followed by disorientation. No known triggers. Remains independent in ADLs. Cooking on her own. Managing household responsibilities with occasional assistance from . Continues to independently manage finances without any issues. Independently managing medication. No driving for 4-5 months. No regular exercise. Socially isolated due to family stressors which is a big change. Poor sleep quality, up most of the night. Reported some snoring and gasping (largely due to dysarthria). No pain complaints. Neurological history includes 3 strokes, 2 occurring in 2019 per . MRI of the brain on 03/01/2023 identified multifocal remote infarcts which could contribute to ataxia but unlikely to explain progressive nature per neurology. Neurology raises concern for possible neurodegenerative process such as multiple system atrophy. Recent MoCA . There is concern for primary progressive aphasia vs. vascular dementia. Family neurological history includes mother who had brain metastases. Denied any psychiatric history. No history of alcohol/substance abuse or smoking. [place] language [place]. Competed high school education. 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 Has 2 biological children, one living. Son last year and apparently family is convinced patient and had something to do with this. They have been completely cutoff from family and legal is involved. This is a significant contributing stressor. MEDICAL HISTORY/MEDICATION: Past Medical History: Diagnosis Date Arthritis Chronic back pain Depression (CMS/HCC) Disturbance of skin sensation 12/02/2015 HTN (hypertension) (CMS/HCC) Muscle spasm 12/02/2015 Myoclonus 12/02/2015 Obesity MEDICATIONS: Current Outpatient Medications Medication Instructions amLODIPine (NORVASC) 2.5 mg, Oral, Daily ascorbic acid (VITAMIN C) 500 mg, Daily Aspirin Low Dose 81 mg, Daily baclofen (Lioresal) 20 MG tablet Take 1 tablet (20 mg) by mouth in the morning and 1 tablet (20 mg) in the evening and 1 tablet (20 mg) before bedtime. cetirizine (ZyrTEC) 10 MG tablet Take by mouth clonazePAM (KLONOPIN) 0.5 mg, Oral, 2 times daily D-Mannose 500 mg, Daily doxycycline (VIBRA-TABS) 100 mg, 2 times daily estradiol (Estrace) 0.1 MG/GM vaginal cream apply a pea-sized amount vaginally and around the urethra NIGHTLY TIME 3 (THREE) weeks, then 3 (THREE) times per week thereafter ferrous sulfate (FEROSUL) 325 mg, Oral, Daily with breakfast furosemide (LASIX) 20 mg, Daily meclizine (ANTIVERT) 25 mg, Oral, Every 12 hours PRN methenamine hippurate (HIPREX) 1 g, 2 times daily metoprolol succinate XL (TOPROL-XL) 25 mg, Oral, Daily, Do not crush or chew Probiotic Product (PROBIOTIC/PREBIOTIC/CRANBERRY PO) 60 mg, Oral, Daily QUEtiapine (SEROQUEL) 50 mg, Oral, Nightly rosuvastatin (CRESTOR) 20 mg, Oral, Nightly topiramate 50 mg, Oral, Nightly trospium (SANCTURA) 60 mg, 2 times daily INITIAL IMPRESSION AND PLAN: Expressive aphasia, memory loss, zoning out episodes, ischemic stroke, insomnia, and significant family stress: The patient will be scheduled for neuropsychological assessment, which will include tests for memory, reasoning, language, problem-solving, attention, and mood. Thank you for allowing me to participate in the care of this individual. Please contact me with any questions at [phone]. documented in this encounter [facility] 2024 History of Present illness Narrative Associated Problem(s): Acute diffuse otitis externa of both ears No evidence of TM perforation Will prescribe atb drops, for 10 days, if not better fu in office Headache pain Both ear pain- bleeding For about a week or so now More dizzy /5- neuropsch assessment Waiting to hear from [facility] for MRI on brain /-fu appt with jameson SANDOVAL Images from the original note were not included. Ozzie Gifford is a 74 y.o. female presents with chief complaint of Hypertension HPI: Headache pain Both ear pain- bleeding For about a week or so now More dizzy 06/15- neuropsch assessment Waiting to hear from [facility] for MRI on brain 07/15-fu appt with jameson SANDOVAL Earache There is pain in both ears. This is a new problem. The current episode started in the past 7 days. The problem occurs constantly. The problem has been waxing and waning. There has been no fever. The pain is moderate. Associated symptoms include ear discharge, headaches and rhinorrhea. Pertinent negatives include no abdominal pain, coughing, diarrhea, hearing loss, rash, sore throat or vomiting. She has tried nothing for the symptoms. The treatment provided mild relief. There is no history of a chronic ear infection or a tympanostomy tube. SUBJECTIVE: MEDICATIONS: Current Outpatient Medications Medication Instructions amLODIPine (NORVASC) 2.5 mg, Oral, Daily ascorbic acid (VITAMIN C) 500 mg, Daily Aspirin Low Dose 81 mg, Daily baclofen (Lioresal) 20 MG tablet Take 1 tablet (20 mg) by mouth in the morning and 1 tablet (20 mg) in the evening and 1 tablet (20 mg) before bedtime. cetirizine (ZyrTEC) 10 MG tablet Take by mouth clonazePAM (KLONOPIN) 0.5 mg, Oral, 2 times daily D-Mannose 500 mg, Daily doxycycline (VIBRA-TABS) 100 mg, 2 times daily estradiol (Estrace) 0.1 MG/GM vaginal cream apply a pea-sized amount vaginally and around the urethra NIGHTLY TIME 3 (THREE) weeks, then 3 (THREE) times per week thereafter ferrous sulfate (FEROSUL) 325 mg, Oral, Daily with breakfast furosemide (LASIX) 20 mg, Daily meclizine (ANTIVERT) 25 mg, Oral, Every 12 hours PRN methenamine hippurate (HIPREX) 1 g, 2 times daily metoprolol succinate XL (TOPROL-XL) 25 mg, Oral, Daily, Do not crush or chew Probiotic Product (PROBIOTIC/PREBIOTIC/CRANBERRY PO) 60 mg, Oral, Daily QUEtiapine (SEROQUEL) 50 mg, Oral, Nightly rosuvastatin (CRESTOR) 20 mg, Oral, Nightly topiramate 50 mg, Oral, Nightly trospium (SANCTURA) 60 mg, 2 times daily ALLERGIES: Allergies Allergen Reactions Penicillin G Unknown Penicillins Rash REVIEW OF SYMPTOMS: Review of Systems Constitutional: Negative for appetite change, chills and fever. HENT: Positive for ear discharge, ear pain and rhinorrhea. Negative for congestion, hearing loss and sore throat. Eyes: Negative for pain, discharge, redness and visual disturbance. Respiratory: Negative for cough, shortness of breath and wheezing. Cardiovascular: Negative for chest pain, palpitations and leg swelling. Gastrointestinal: Negative for abdominal pain, blood in stool, constipation, diarrhea, nausea and vomiting. Genitourinary: Negative for difficulty urinating, dysuria and frequency. Musculoskeletal: Negative for arthralgias, back pain, joint swelling and myalgias. Skin: Negative for rash and wound. Neurological: Positive for headaches. Negative for dizziness, tremors, seizures and syncope. Psychiatric/Behavioral: Negative for behavioral problems, self-injury and suicidal ideas. The patient is not nervous/anxious. Hematological: Does not bruise/bleed easily. Endocrine: Negative for polydipsia, polyphagia and polyuria. Allergic/Immunologic: Negative for environmental allergies and food allergies. PAST MEDICAL HISTORY Past Medical History: Diagnosis Date Arthritis Chronic back pain Depression (CMS/HCC) Disturbance of skin sensation 12/02/2015 HTN (hypertension) (CMS/HCC) Muscle spasm 12/02/2015 Myoclonus 12/02/2015 Obesity Past Surgical History: Procedure Laterality Date BARIATRIC SURGERY BREAST SURGERY CATARACT EXTRACTION cataracts CHOLECYSTECTOMY GASTRIC BYPASS HYSTERECTOMY IR INTERVENTION NEURO THROMBECTOMY 04/05/2018 IR INTERVENTION NEURO THROMBECTOMY 04/05/2018 OTHER SURGICAL HISTORY Knee Arthroscopy TOTAL ABDOMINAL HYSTERECTOMY TOTAL KNEE ARTHROPLASTY Right with loosening of hardware (4 surgeries total) family history includes Cancer in her father and mother; Diabetes in her father; Heart disease in her father; Hypertension in her mother. OBJECTIVE: Visit Vitals BP 124/70 (BP Location: Left arm, Patient Position: Sitting, BP Cuff Size: Adult long) Pulse 71 Temp 98.8 F (Temporal) Resp 18 Wt 155 lb 3.2 oz SpO2 98% BMI 29.32 kg/m Smoking Status Former BSA 1.74 m Physical Exam Vitals and nursing note reviewed. Constitutional: General: She is not in acute distress. Appearance: Normal appearance. HENT: Head: Normocephalic and atraumatic. Right Ear: Tympanic membrane and ear canal normal. Left Ear: Tympanic membrane and ear canal normal. Ears: Comments: Bilat canals with scattered scabbed areas, no debris noted Nose: Nose normal. No congestion or rhinorrhea. Mouth/Throat: Mouth: Mucous membranes are moist. Pharynx: No oropharyngeal exudate or posterior oropharyngeal erythema. Eyes: Extraocular Movements: Extraocular movements intact. Conjunctiva/sclera: Conjunctivae normal. Cardiovascular: Rate and Rhythm: Normal rate and regular rhythm. Pulses: Normal pulses. Heart sounds: Normal heart sounds. Pulmonary: Effort: Pulmonary effort is normal. Breath sounds: Normal breath sounds. Musculoskeletal: General: Normal range of motion. Cervical back: Normal range of motion and neck supple. Lymphadenopathy: Cervical: No cervical adenopathy. Skin: General: Skin is warm and dry. Capillary Refill: Capillary refill takes 2 to 3 seconds. Findings: No rash. Neurological: General: No focal deficit present. Mental Status: She is alert and oriented to person, place, and time. Psychiatric: Mood and Affect: Mood normal. Behavior: Behavior normal. Thought Content: Thought content normal. Judgment: Judgment normal. ASSESSMENT AND PLAN: No follow-ups on file. Problem List Items Addressed This Visit Acute diffuse otitis externa of both ears - Primary No evidence of TM perforation Will prescribe atb drops, for 10 days, if not better fu in office Relevant Medications [id number]-[id number] (Cortisporin) otic solution documented in this encounter [facility] 2024 Instructions Cindy Collado NP - 2024 10:30 AM EDT Ear drops: 4 drops each ear three times daily for 10 days, if not better contact the office documented in this encounter [facility] 06-01-2024 History of Present illness Narrative Images from the original note were not included. Chief Complaint Patient presents with Balance difficulty Memory Loss Subjective Ozzie Gifford is a 74 y.o. female. History of Present Illness The patient presents today for follow-up. She is accompanied by her . She has completed physical therapy and occupational therapy since the prior neurology appointment. She estimates she completed 8 weeks of PT/OT. She believes this was helpful for her gait, balance, and coordination. She has not had any falls recently but states, I hang onto everything. She will use a cane, furniture, and/or the stone. The patient and her report progressively worsening balance and coordination in the patient since her stroke. They state she was previously diagnosed with, functional gait, in [place], [place]. She notices a tremor every once in awhile but nothing significant. She reports intermittent numbness and tingling in the bilateral hands (left > right) but is unable to say where exactly this is located. She denies focal weakness. The patient and her report memory difficulty in the patient with unclear date of onset. The patient denies sudden onset of memory impairment and states it just started to gradually worsen. She states today, I'm okay if I could remember things, and laughs. The patient and her state the patient can repeat questions frequently. She, at times, has difficulty verbalizing what she wants to say. They deny loss of consciousness or seizure-like activity. The patient denies feelings of depression or anxiety. She lives at home with her and remains independent with all activities of daily living and medication management. She is not driving. She does not sleep well and will sometimes stay awake until 3:00 am to 4:00 am. She has very broken sleep. They deny the patient wandering or getting lost. They deny hallucinations or dream enactment behavior. The patient denies any known family history of ataxia or dementia. She denies history of significant alcohol use. Her son Natacha in June 2023. The patient also reports chronic pain in the right parietal region of the head. She is unable to describe this in any great detail and states, it hurts. She is unclear on the frequency, severity, duration, or characteristic of the pain. She denies accompanying nausea or vomiting. She is having bilateral ear pain and plans to see her PCP about this. Review of Systems Constitutional: Negative for appetite change, chills, fatigue, fever and unexpected weight change. HENT: Positive for ear pain. Negative for trouble swallowing and voice change. Eyes: Negative for visual change, double vision or loss of vision Respiratory: Negative for cough, shortness of breath and wheezing. Cardiovascular: Positive for leg swelling. Negative for chest pain and palpitations. Gastrointestinal: Negative for abdominal pain, blood in stool, nausea and vomiting. Musculoskeletal: Positive for gait problem. Negative for arthralgias and myalgias. Neurological: Positive for dizziness, tremors, speech difficulty, numbness (see HPI) and headaches. Negative for seizures, syncope, facial asymmetry, weakness and light-headedness. Positive for memory difficulty Psychiatric/Behavioral: Positive for sleep disturbance. Negative for hallucinations and suicidal ideas. The patient is not nervous/anxious. Past Medical History: Diagnosis Date Arthritis Chronic back pain Depression (CMS/HCC) Disturbance of skin sensation 12/02/2015 HTN (hypertension) ([facility]) Muscle spasm 12/02/2015 Myoclonus 12/02/2015 Obesity Past Surgical History: Procedure Laterality Date BARIATRIC SURGERY BREAST SURGERY CATARACT EXTRACTION cataracts CHOLECYSTECTOMY GASTRIC BYPASS HYSTERECTOMY IR INTERVENTION NEURO THROMBECTOMY 04/05/2018 IR INTERVENTION NEURO THROMBECTOMY 04/05/2018 OTHER SURGICAL HISTORY Knee Arthroscopy TOTAL ABDOMINAL HYSTERECTOMY TOTAL KNEE ARTHROPLASTY Right with loosening of hardware (4 surgeries total) Family History Problem Relation Name Age of Onset Hypertension Mother Cancer Mother Cancer Father Heart disease Father Diabetes Father Social History Tobacco Use Smoking status: Former Types: Cigarettes Passive exposure: Current Smokeless tobacco: Never Substance Use Topics Alcohol use: Never Allergies: Penicillin g and Penicillins Vitals: 06/01/24 1309 BP: 126/72 Pulse: 66 SpO2: 98% Body mass index is 29.25 kg/m . Weight: 154 lb 12.8 oz Neurologic exam: Mental status and general appearance: Awake and alert with unlabored respirations. Oriented to person, place, and time. MOCA score 15/30 today. Speech is clear and non-dysarthric. Intermittent expressive asphasia. Attention and concentration are normal. Fund of knowledge is appropriate for level of education. Pleasant. Cranial nerves: CN II: Visual acuity is normal. Visual hadley full to confrontation. CN III, IV, : Pupils are equal, round, and reactive to light. Extraocular movements intact. No ptosis present. CN V: Facial sensation is normal. CN VII: Full and symmetric facial movement. CN VIII: Hearing is normal to finger rub bilaterally. CN IX and X: Palate elevates symmetrically. CN XI: Shoulder shrug is normal bilaterally. CN XII: Tongue is midline without atrophy or fasciculation. Motor: RUE strength deltoid , biceps , triceps , wrist extensors , wrist flexor , and trimmer sorter strength 4+/5. LUE strength deltoid , biceps , triceps , wrist extensors , wrist flexor , and trimmer sorter strength 4+/5. RLE strength iliopsoas, quadriceps, tibialis anterior, and plantar flexion strength 4+/5. LLE strength iliopsoas, quadriceps, tibialis anterior, and plantar flexion strength 4+/5. Tone and bulk are normal. No rigidity. No tremor observed. Sensory: Sensation is intact to light touch throughout all four extremities. Reflexes: RUE biceps reflex 2+ , brachioradialis reflex 2+. LUE biceps reflex 2+ , brachioradialis reflex 2+. RLE knee reflex 1+. LLE knee reflex 1+. Stephens's sign negative. Coordination: Picets-ed-nria testing bilateral dysmetria. Substantial truncal ataxia noted. Oovu-om-dses testing bilateral dysmetria. Rapid alternating movements mild bradykinesia in the bilateral upper extremities. Gait: Unsteady. Being assisted by her . Unable to tandem walk. Review and summary of old records: MOCA score at [facility] on 06/01/2024: with 4/5 recall. MRI of the brain without contrast on 03/01/2023: No acute ischemia. Multifocal remote infarcts involving the supratentorial brain with superimposed white matter changes. Remote left temporal lobe infarct. There is ex vacuo dilatation of the posterior left lateral ventricle. Small remote infarct involving the right frontal fowler radiata white matter and right caudate head. CT angiogram of the head and neck on 03/01/2023: Short segment severe stenosis versus occlusion of the origin of the left external carotid artery. Short segment 50% stenosis involving the origin of the right brachiocephalic artery and narrowing approaching but not exceeding 50% stenosis of the right subclavian artery. 45-50% stenosis of the right internal carotid artery. No significant stenosis, large vessel occlusion, aneurysm or dissection noted involving the intracranial vasculature. CT of the brain without contrast on 03/01/2023: Stable atrophy and white matter changes. LDL on 10/26/2023: 44. Assessment/Plan Diagnoses and all orders for this visit: Ataxia Gait instability The patient has dysmetria of the upper and lower extremities on clinical exam and some truncal ataxia. She also has quite significant gait instability. She believes these have progressively worsened over the past 1+ year. The patient is taking clonazepam, topiramate, and Seroquel, all of which could be contributory to her ataxia. MRI of the brain on 03/01/2023 also identified multifocal remote infarcts which could contribute to ataxia. However, I would not expect these to explain the progressive nature of her symptoms. MRI did not mention any definitive atrophy of the brainstem. Given the progressive worsening of symptoms, patient age, and other factors, I am suspicious for a neurodegenerative process such as multiple system atrophy type C. I do not appreciate many parkinsonian features on clinical exam today, but there is mild bradykinesia, and the patient reports an intermittent tremor. Less likely consideration would be adult onset spinal cerebellar ataxia. The patient history of alcohol abuse or family history of hereditary ataxia. Will evaluate this further. She did complete PT/OT with some subjective benefit. PLAN: - Update MRI of the brain - MRI of the cervical spine to assess for a structural lesion including degenerative cervical spine disease or cord compression which may be contributing to the patient's symptoms. This could be debilitating if not promptly identified and treated - Continue at home physical and occupational therapy exercises - Fall prevention measures discussed - As clonazepam, topiramate, and Seroquel can contribute to ataxia, I recommend the patient attempt to reduce use of these medications with the prescribing provider - We will keep in mind consideration for testing levodopa responsiveness at follow up - Would consider referral to a tertiary care center such as [facility] or [facility] neurology at follow up for further evaluation and treatment of ataxia/gait instability pending results of work up. Of note, the patient was evaluated by [facility] neurology in June 2023 and diagnosed with functional gait disorder at that time Expressive aphasia Memory difficulty The patient presents today with new concerns for progressive memory decline and expressive aphasia with insidious onset. Her MOCA score in office is 15/30. I do believe poor sleep, history of depression, and of son in 2023 may be contributory to the patient's cognitive dysfunction. Other considerations include primary progressive aphasia and/or vascular dementia. Given her history of multifocal strokes, need to update MRI of the brain and ensure there are no new strokes or intracranial abnormalities that could explain her presentation. Will evaluate this further. PLAN: - MRI of the brain to assess for an intracranial process which may be contributing to the patient's symptoms - Check labs (vitamin B12 and TSH) - Referral for neuropsychological for detailed evaluation of the patient's cognitive function to help determine the most likely etiology of symptoms History of ischemic stroke The patient has a history of dizziness. She had a substantial problem in February 2023 and was evaluated at [facility] where she had a CT head, CTA of the head and neck, and MRI of the brain. MRI brain at the time was negative/unremarkable for acute pathology. However, there was evidence of multifocal old ischemic infarcts. The patient does take aspirin and a statin medication for this. LDL was 44 which is within goal for secondary stroke prevention. As the MRI did not reveal a definitive cause for the patient's dizziness, and symptoms were somewhat positional, consideration has been given to alternative disorder such as BPPV. The patient reports having right TCAR procedure via Dr. Juarez approximately 1 year ago for carotid artery stenosis. PLAN: - Continue aspirin 81 mg by mouth daily for secondary stroke prevention - Continue statin (management per primary care provider; goal LDL < 70) - Healthy diet - Avoid tobacco use and limit alcohol intake - Follow up closely with primary care provider for management of blood pressure, cholesterol levels, and blood glucose to help reduce the risk of future stroke - Follow up with vascular surgery per their recommendations (sounds like she has a history of carotid artery stenosis) - I counseled the patient on signs and symptoms of stroke and educated the patient to seek emergent care in the emergency department if she develops any of these in the future. She verbalizes understanding The patient has been encouraged to follow up with her PCP to address her bilateral ear pain. Diagnosis and treatment options discussed in detail. All questions answered. The patient and her verbalize understanding and are agreeable to the plan. Discussion in layman's terms. Follow up in the office within 1 month; sooner if needed for new or worsening symptoms. Jameson Ceballos NP [facility] documented in this encounter [facility] 06-01-2024 Instructions Jameson Ceballos NP - 06/01/2024 1:20 PM EDT - MRI of the brain and cervical spine ([facility]) - Check labs - Referral for neuropsychological evaluation documented in this encounter [facility] 05-12-2024 History of Present illness Narrative After the doxycycline hyclate 100mg she is to start the methenamine hippurate 1g tab. Is is also taking the vitamin c 500 daily D-mannose 500 1 daily Probiotics with cranberry 1 daily Had a BP of 156/74 at home Images from the original note were not included. Ozzie Gifford is a 73 y.o. female presents with chief complaint of No chief complaint on file. HPI: Here for recheck, no significant changes Cont with urology and her UTI's is asking about if she needs all the meds she has No other changes SUBJECTIVE: MEDICATIONS: Current Outpatient Medications Medication Instructions amLODIPine (NORVASC) 2.5 mg, Oral, Daily ascorbic acid (VITAMIN C) 500 mg, Daily baclofen (Lioresal) 20 MG tablet Take 1 tablet (20 mg) by mouth in the morning and 1 tablet (20 mg) in the evening and 1 tablet (20 mg) before bedtime. cetirizine (ZyrTEC) 10 MG tablet Take by mouth clonazePAM (KLONOPIN) 0.5 mg, Oral, 2 times daily D-Mannose 500 mg, Daily doxycycline (VIBRA-TABS) 100 mg, 2 times daily estradiol (Estrace) 0.1 MG/GM vaginal cream apply a pea-sized amount vaginally and around the urethra NIGHTLY TIME 3 (THREE) weeks, then 3 (THREE) times per week thereafter ferrous sulfate (FEROSUL) 325 mg, Oral, Daily with breakfast furosemide (LASIX) 20 mg, Daily meclizine (ANTIVERT) 25 mg, 3 times daily PRN methenamine hippurate (HIPREX) 1 g, 2 times daily metoprolol succinate XL (TOPROL-XL) 25 mg, Oral, Daily, Do not crush or chew Probiotic Product (PROBIOTIC/PREBIOTIC/CRANBERRY PO) 60 mg, Oral, Daily QUEtiapine (SEROQUEL) 50 mg, Oral, Nightly rosuvastatin (CRESTOR) 20 mg, Oral, Nightly topiramate 50 mg, Oral, Nightly trospium (SANCTURA) 60 mg, 2 times daily ALLERGIES: Allergies Allergen Reactions Penicillin G Unknown Penicillins Rash REVIEW OF SYMPTOMS: Review of Systems Constitutional: Positive for fatigue. Negative for appetite change, chills and fever. HENT: Negative for congestion, ear pain and sore throat. Eyes: Negative for pain, discharge, redness and visual disturbance. Respiratory: Negative for cough, shortness of breath and wheezing. Cardiovascular: Positive for leg swelling. Negative for chest pain and palpitations. Gastrointestinal: Negative for abdominal pain, blood in stool, constipation, diarrhea, nausea and vomiting. Genitourinary: Negative for difficulty urinating, dysuria and frequency. Musculoskeletal: Positive for arthralgias. Negative for back pain, joint swelling and myalgias. Skin: Negative for rash and wound. Neurological: Positive for dizziness. Negative for tremors, seizures, syncope and headaches. Psychiatric/Behavioral: Negative for behavioral problems, self-injury and suicidal ideas. The patient is nervous/anxious. Hematological: Does not bruise/bleed easily. Endocrine: Negative for polydipsia, polyphagia and polyuria. Allergic/Immunologic: Negative for environmental allergies and food allergies. PAST MEDICAL HISTORY Past Medical History: Diagnosis Date Arthritis Chronic back pain Depression (CMS/HCC) Disturbance of skin sensation 12/02/2015 HTN (hypertension) (CMS/HCC) Muscle spasm 12/02/2015 Myoclonus 12/02/2015 Obesity Past Surgical History: Procedure Laterality Date BARIATRIC SURGERY BREAST SURGERY CATARACT EXTRACTION cataracts CHOLECYSTECTOMY GASTRIC BYPASS HYSTERECTOMY IR INTERVENTION NEURO THROMBECTOMY 04/05/2018 IR INTERVENTION NEURO THROMBECTOMY 04/05/2018 OTHER SURGICAL HISTORY Knee Arthroscopy TOTAL ABDOMINAL HYSTERECTOMY TOTAL KNEE ARTHROPLASTY Right with loosening of hardware (4 surgeries total) family history includes Cancer in her father and mother; Diabetes in her father; Heart disease in her father; Hypertension in her mother. OBJECTIVE: Visit Vitals BP 116/62 (BP Location: Left arm, Patient Position: Sitting, BP Cuff Size: Adult long) Pulse 74 Temp 98.1 F (Temporal) Resp 18 Wt 156 lb 6.4 oz SpO2 96% BMI 29.55 kg/m Smoking Status Former BSA 1.75 m Physical Exam Vitals and nursing note reviewed. Constitutional: General: She is not in acute distress. Appearance: Normal appearance. HENT: Head: Normocephalic and atraumatic. Right Ear: External ear normal. Left Ear: External ear normal. Nose: Nose normal. Mouth/Throat: Mouth: Mucous membranes are moist. Eyes: Extraocular Movements: Extraocular movements intact. Conjunctiva/sclera: Conjunctivae normal. Neck: Vascular: No carotid bruit. Cardiovascular: Rate and Rhythm: Normal rate and regular rhythm. Pulses: Normal pulses. Heart sounds: Normal heart sounds. Pulmonary: Effort: Pulmonary effort is normal. Breath sounds: Normal breath sounds. No wheezing or rhonchi. Abdominal: General: Bowel sounds are normal. There is no distension. Palpations: Abdomen is soft. There is no mass. Tenderness: There is no abdominal tenderness. Musculoskeletal: General: Normal range of motion. Cervical back: Normal range of motion and neck supple. Right lower leg: Edema present. Left lower leg: Edema present. Skin: General: Skin is warm and dry. Capillary Refill: Capillary refill takes 2 to 3 seconds. Findings: No rash. Neurological: General: No focal deficit present. Mental Status: She is alert and oriented to person, place, and time. Psychiatric: Mood and Affect: Mood normal. Behavior: Behavior normal. Thought Content: Thought content normal. Judgment: Judgment normal. ASSESSMENT AND PLAN: No follow-ups on file. Problem List Items Addressed This Visit Cerebrovascular accident (CVA) (CMS/HCC) - Primary Continue w neurology Cont statin, asa and blood pressure meds Is receiving Home Health services Relevant Orders CBC and differential Primary hypertension (CMS/HCC) Please check blood pressure daily and record DASH diet Limit caffeine Take medication as directed Contact office if chest pain, pressure, dizziness, shortness of breath, swelling legs Recommend slow position changes Current meds: asa, amlodipine, metoprolol XL Relevant Orders Basic metabolic panel Overflow incontinence of urine Continue with urology Dizziness and giddiness Continue with Neurology Impaired mobility and activities of daily living Continue with home health CRYSTAL (generalized anxiety disorder) (CMS/HCC) Has been on klonopin for some time [facility] reviewed Associated Problem(s): Impaired mobility and activities of daily living Continue with home health Associated Problem(s): CRYSTAL (generalized anxiety disorder) (CMS/HCC) Has been on klonopin for some time [facility] reviewed Associated Problem(s): Overflow incontinence of urine Continue with urology Associated Problem(s): Primary hypertension (CMS/HCC) Please check blood pressure daily and record DASH diet Limit caffeine Take medication as directed Contact office if chest pain, pressure, dizziness, shortness of breath, swelling legs Recommend slow position changes Current meds: asa, amlodipine, metoprolol XL Associated Problem(s): Dizziness and giddiness Continue with Neurology Associated Problem(s): Cerebrovascular accident (CVA) (CMS/HCC) Continue w neurology Cont statin, asa and blood pressure meds Is receiving Home Health services documented in this encounter [facility] 05-12-2024 Instructions Cindy Collado NP - 05/12/2024 1:40 PM EDT Get labs checked No med dose changes Please do your exercises daily documented in this encounter [facility] 04-14-2024 Hospital Discharge instructions Patient Education 04/14/2024 13:55:52 Overactive Bladder, Adult Overactive Bladder, Adult Overactive bladder is a condition in which a person has a sudden and frequent need to urinate. A person might also leak urine if he or she cannot get to the bathroom fast enough (urinary incontinence). Sometimes, symptoms can interfere with work or social activities. What are the causes? Overactive bladder is associated with poor nerve signals between your bladder and your brain. Your bladder may get the signal to empty before it is full. You may also have very sensitive muscles that make your bladder squeeze too soon. This condition may also be caused by other factors, such as: Medical conditions: ?Urinary tract infection. ?Infection of nearby tissues. ?Prostate enlargement. ?Bladder stones, inflammation, or tumors. ?Diabetes. ?Muscle or nerve weakness, especially from these conditions: ?A spinal cord injury. ?Stroke. ?Multiple sclerosis. ?Parkinson's disease. Other causes: ?Surgery on the uterus or urethra. ?Drinking too much caffeine or alcohol. ?Certain medicines, especially those that eliminate extra fluid in the body (diuretics). ?Constipation. What increases the risk? You may be at greater risk for overactive bladder if you: Are an older adult. Smoke. Are going through menopause. Have prostate problems. Have a neurological disease, such as stroke, dementia, Parkinson's disease, or multiple sclerosis (MS). Eat or drink alcohol, spicy food, caffeine, and other things that irritate the bladder. Are overweight or obese. What are the signs or symptoms? Symptoms of this condition include a sudden, strong urge to urinate. Other symptoms include: Leaking urine. Urinating 8 or more times a day. Waking up to urinate 2 or more times overnight. How is this diagnosed? This condition may be diagnosed based on: Your symptoms and medical history. A physical exam. Blood or urine tests to check for possible causes, such as infection. You may also need to see a health care provider who specializes in urinary tract problems. This is called a urologist. How is this treated? Treatment for overactive bladder depends on the cause of your condition and whether it is mild or severe. Treatment may include: Bladder training, such as: ?Learning to control the urge to urinate by following a schedule to urinate at regular intervals. ?Doing Kegel exercises to strengthen the pelvic floor muscles that support your bladder. Special devices, such as: ?Biofeedback. This uses sensors to help you become aware of your body's signals. ?Electrical stimulation. This uses electrodes placed inside the body (implanted) or outside the body. These electrodes send gentle pulses of electricity to strengthen the nerves or muscles that control the bladder. ?Women may use a plastic device, called a pessary, that fits into the vagina and supports the bladder. Medicines, such as: ?Antibiotics to treat bladder infection. ?Antispasmodics to stop the bladder from releasing urine at the wrong time. ?Tricyclic antidepressants to relax bladder muscles. ?Injections of botulinum toxin type A directly into the bladder tissue to relax bladder muscles. Surgery, such as: ?A device may be implanted to help manage the nerve signals that control urination. ?An electrode may be implanted to stimulate electrical signals in the bladder. ?A procedure may be done to change the shape of the bladder. This is done only in very severe cases. Follow these instructions at home: Eating and drinking Make diet or lifestyle changes recommended by your health care provider. These may include: ?Drinking fluids throughout the day and not only with meals. ?Cutting down on caffeine or alcohol. ?Eating a healthy and balanced diet to prevent constipation. This may include: ?Choosing foods that are high in fiber, such as beans, whole grains, and fresh fruits and vegetables. ?Limiting foods that are high in fat and processed sugars, such as fried and sweet foods. Lifestyle Lose weight if needed. Do not use any products that contain nicotine or tobacco. These include cigarettes, chewing tobacco, and vaping devices, such as e-cigarettes. If you need help quitting, ask your health care provider. General instructions Take yvlv-tax-rrxqede and prescription medicines only as told by your health care provider. If you were prescribed an antibiotic medicine, take it as told by your health care provider. Do not stop taking the antibiotic even if you start to feel better. Use any implants or pessary as told by your health care provider. If needed, wear pads to absorb urine leakage. Keep a log to track how much and when you drink, and when you need to urinate. This will help your health care provider monitor your condition. Keep all follow-up visits. This is important. Contact a health care provider if: You have a fever or chills. Your symptoms do not get better with treatment. Your pain and discomfort get worse. You have more frequent urges to urinate. Get help right away if: You are not able to control your bladder. Summary Overactive bladder refers to a condition in which a person has a sudden and frequent need to urinate. Several conditions may lead to an overactive bladder. Treatment for overactive bladder depends on the cause and severity of your condition. Making lifestyle changes, doing Kegel exercises, keeping a log, and taking medicines can help with this condition. This information is not intended to replace advice given to you by your health care provider. Make sure you discuss any questions you have with your health care provider. Document Revised: 10/17/2020 Document Reviewed: 10/17/2020 [email or web address] Patient Education 2023 [employer]. 04/14/2024 13:55:47 Urinary Tract Infection, Adult Urinary Tract Infection, [...] Treatment for this condition includes: Antibiotic medicine. Xmyu-gqb-usaqykc medicines to treat discomfort. Drinking enough water [...] Follow these instructions at home: Medicines Take jqvt-pjt-hfqjkrw and prescription medicines only as told by [...] with your health care provider. Document Revised: 09/04/2020 Document Reviewed: 09/09/2020 [email or web address] Patient Education 2023 [employer]. Follow Up Care 04/14/2024 10:07:35 With:CORRIE EDEN, BERNICE Carias, URL Address: [facility] [place] [address] When: Unknown Comments:F/U in 3 months [facility] 04-14-2024 Note Patient Education Obstetrics and Gynecology Overactive Bladder, Adult Overactive bladder is a condition in which a person has a sudden and frequent need to urinate. A person might also leak urine if he or she cannot get to the bathroom fast enough (urinary incontinence). Sometimes, symptoms can interfere with work or social activities. What are the causes? Overactive bladder is associated with poor nerve signals between your bladder and your brain. Your bladder may get the signal to empty before it is full. You may also have very sensitive muscles that make your bladder squeeze too soon. This condition may also be caused by other factors, such as: ??? Medical conditions: ? Urinary tract infection. ? Infection of nearby tissues. ? Prostate enlargement. ? Bladder stones, inflammation, or tumors. ? Diabetes. ? Muscle or nerve weakness, especially from these conditions: ? A spinal cord injury. ? Stroke. ? Multiple sclerosis. ? Parkinson's disease. ??? Other causes: ? Surgery on the uterus or urethra. ? Drinking too much caffeine or alcohol. ? Certain medicines, especially those that eliminate extra fluid in the body (diuretics). ? Constipation. What increases the risk? You may be at greater risk for overactive bladder if you: ??? Are an older adult. ??? Smoke. ??? Are going through menopause. ??? Have prostate problems. ??? Have a neurological disease, such as stroke, dementia, Parkinson's disease, or multiple sclerosis (MS). ??? Eat or drink alcohol, spicy food, caffeine, and other things that irritate the bladder. ??? Are overweight or obese. What are the signs or symptoms? Symptoms of this condition include a sudden, strong urge to urinate. Other symptoms include: ??? Leaking urine. ??? Urinating 8 or more times a day. ??? Waking up to urinate 2 or more times overnight. How is this diagnosed? This condition may be diagnosed based on: ??? Your symptoms and medical history. ??? A physical exam. ??? Blood or urine tests to check for possible causes, such as infection. You may also need to see a health care provider who specializes in urinary tract problems. This is called a urologist. How is this treated? Treatment for overactive bladder depends on the cause of your condition and whether it is mild or severe. Treatment may include: ??? Bladder training, such as: ? Learning to control the urge to urinate by following a schedule to urinate at regular intervals. ? Doing Kegel exercises to strengthen the pelvic floor muscles that support your bladder. ??? Special devices, such as: ? Biofeedback. This uses sensors to help you become aware of your body's signals. ? Electrical stimulation. This uses electrodes placed inside the body (implanted) or outside the body. These electrodes send gentle pulses of electricity to strengthen the nerves or muscles that control the bladder. ? Women may use a plastic device, called a pessary, that fits into the vagina and supports the bladder. ??? Medicines, such as: ? Antibiotics to treat bladder infection. ? Antispasmodics to stop the bladder from releasing urine at the wrong time. ? Tricyclic antidepressants to relax bladder muscles. ? Injections of botulinum toxin type A directly into the bladder tissue to relax bladder muscles. ??? Surgery, such as: ? A device may be implanted to help manage the nerve signals that control urination. ? An electrode may be implanted to stimulate electrical signals in the bladder. ? A procedure may be done to change the shape of the bladder. This is done only in very severe cases. Follow these instructions at home: Eating and drinking ??? Make diet or lifestyle changes recommended by your health care provider. These may include: ? Drinking fluids throughout the day and not only with meals. ? Cutting down on caffeine or alcohol. ? Eating a healthy and balanced diet to prevent constipation. This may include: ? Choosing foods that are high in fiber, such as beans, whole grains, and fresh fruits and vegetables. ? Limiting foods that are high in fat and processed sugars, such as fried and sweet foods. Lifestyle ??? Lose weight if needed. ??? Do not use any products that contain nicotine or tobacco. These include cigarettes, chewing tobacco, and vaping devices, such as e-cigarettes. If you need help quitting, ask your health care provider. General instructions ??? Take nnud-pii-iamcojc and prescription medicines only as told by your health care provider. ??? If you were prescribed an antibiotic medicine, take it as told by your health care provider. Do not stop taking the antibiotic even if you start to feel better. ??? Use any implants or pessary as told by your health care provider. ??? If needed, wear pads to absorb urine leakage. ??? Keep a log to track how much and when you drink, and whe (more content not included)... [facility] 04-01-2024 Hospital Discharge instructions Patient Education 04/01/2024 10:30:58 Overactive Bladder, Adult Overactive Bladder, Adult Overactive bladder is a condition in which a person has a sudden and frequent need to urinate. A person might also leak urine if he or she cannot get to the bathroom fast enough (urinary incontinence). Sometimes, symptoms can interfere with work or social activities. What are the causes? Overactive bladder is associated with poor nerve signals between your bladder and your brain. Your bladder may get the signal to empty before it is full. You may also have very sensitive muscles that make your bladder squeeze too soon. This condition may also be caused by other factors, such as: Medical conditions: ?Urinary tract infection. ?Infection of nearby tissues. ?Prostate enlargement. ?Bladder stones, inflammation, or tumors. ?Diabetes. ?Muscle or nerve weakness, especially from these conditions: ?A spinal cord injury. ?Stroke. ?Multiple sclerosis. ?Parkinson's disease. Other causes: ?Surgery on the uterus or urethra. ?Drinking too much caffeine or alcohol. ?Certain medicines, especially those that eliminate extra fluid in the body (diuretics). ?Constipation. What increases the risk? You may be at greater risk for overactive bladder if you: Are an older adult. Smoke. Are going through menopause. Have prostate problems. Have a neurological disease, such as stroke, dementia, Parkinson's disease, or multiple sclerosis (MS). Eat or drink alcohol, spicy food, caffeine, and other things that irritate the bladder. Are overweight or obese. What are the signs or symptoms? Symptoms of this condition include a sudden, strong urge to urinate. Other symptoms include: Leaking urine. Urinating 8 or more times a day. Waking up to urinate 2 or more times overnight. How is this diagnosed? This condition may be diagnosed based on: Your symptoms and medical history. A physical exam. Blood or urine tests to check for possible causes, such as infection. You may also need to see a health care provider who specializes in urinary tract problems. This is called a urologist. How is this treated? Treatment for overactive bladder depends on the cause of your condition and whether it is mild or severe. Treatment may include: Bladder training, such as: ?Learning to control the urge to urinate by following a schedule to urinate at regular intervals. ?Doing Kegel exercises to strengthen the pelvic floor muscles that support your bladder. Special devices, such as: ?Biofeedback. This uses sensors to help you become aware of your body's signals. ?Electrical stimulation. This uses electrodes placed inside the body (implanted) or outside the body. These electrodes send gentle pulses of electricity to strengthen the nerves or muscles that control the bladder. ?Women may use a plastic device, called a pessary, that fits into the vagina and supports the bladder. Medicines, such as: ?Antibiotics to treat bladder infection. ?Antispasmodics to stop the bladder from releasing urine at the wrong time. ?Tricyclic antidepressants to relax bladder muscles. ?Injections of botulinum toxin type A directly into the bladder tissue to relax bladder muscles. Surgery, such as: ?A device may be implanted to help manage the nerve signals that control urination. ?An electrode may be implanted to stimulate electrical signals in the bladder. ?A procedure may be done to change the shape of the bladder. This is done only in very severe cases. Follow these instructions at home: Eating and drinking Make diet or lifestyle changes recommended by your health care provider. These may include: ?Drinking fluids throughout the day and not only with meals. ?Cutting down on caffeine or alcohol. ?Eating a healthy and balanced diet to prevent constipation. This may include: ?Choosing foods that are high in fiber, such as beans, whole grains, and fresh fruits and vegetables. ?Limiting foods that are high in fat and processed sugars, such as fried and sweet foods. Lifestyle Lose weight if needed. Do not use any products that contain nicotine or tobacco. These include cigarettes, chewing tobacco, and vaping devices, such as e-cigarettes. If you need help quitting, ask your health care provider. General instructions Take pwex-yuk-khzhuqx and prescription medicines only as told by your health care provider. If you were prescribed an antibiotic medicine, take it as told by your health care provider. Do not stop taking the antibiotic even if you start to feel better. Use any implants or pessary as told by your health care provider. If needed, wear pads to absorb urine leakage. Keep a log to track how much and when you drink, and when you need to urinate. This will help your health care provider monitor your condition. Keep all follow-up visits. This is important. Contact a health care provider if: You have a fever or chills. Your symptoms do not get better with treatment. Your pain and discomfort get worse. You have more frequent urges to urinate. Get help right away if: You are not able to control your bladder. Summary Overactive bladder refers to a condition in which a person has a sudden and frequent need to urinate. Several conditions may lead to an overactive bladder. Treatment for overactive bladder depends on the cause and severity of your condition. Making lifestyle changes, doing Kegel exercises, keeping a log, and taking medicines can help with this condition. This information is not intended to replace advice given to you by your health care provider. Make sure you discuss any questions you have with your health care provider. Document Revised: 10/17/2020 Document Reviewed: 10/17/2020 [email or web address] Patient Education 2023 [employer]. Follow Up Care 01/29/2024 11:53:51 With:BERNICE CLEMENTE PA-C, MAXIMINO Address: [address] [place] [place] [address] When: Unknown [facility] [place] 04-01-2024 Note Patient Education Obstetrics and Gynecology Overactive Bladder, Adult Overactive bladder is a condition in which a person has a sudden and frequent need to urinate. A person might also leak urine if he or she cannot get to the bathroom fast enough (urinary incontinence). Sometimes, symptoms can interfere with work or social activities. What are the causes? Overactive bladder is associated with poor nerve signals between your bladder and your brain. Your bladder may get the signal to empty before it is full. You may also have very sensitive muscles that make your bladder squeeze too soon. This condition may also be caused by other factors, such as: ??? Medical conditions: ? Urinary tract infection. ? Infection of nearby tissues. ? Prostate enlargement. ? Bladder stones, inflammation, or tumors. ? Diabetes. ? Muscle or nerve weakness, especially from these conditions: ? A spinal cord injury. ? Stroke. ? Multiple sclerosis. ? Parkinson's disease. ??? Other causes: ? Surgery on the uterus or urethra. ? Drinking too much caffeine or alcohol. ? Certain medicines, especially those that eliminate extra fluid in the body (diuretics). ? Constipation. What increases the risk? You may be at greater risk for overactive bladder if you: ??? Are an older adult. ??? Smoke. ??? Are going through menopause. ??? Have prostate problems. ??? Have a neurological disease, such as stroke, dementia, Parkinson's disease, or multiple sclerosis (MS). ??? Eat or drink alcohol, spicy food, caffeine, and other things that irritate the bladder. ??? Are overweight or obese. What are the signs or symptoms? Symptoms of this condition include a sudden, strong urge to urinate. Other symptoms include: ??? Leaking urine. ??? Urinating 8 or more times a day. ??? Waking up to urinate 2 or more times overnight. How is this diagnosed? This condition may be diagnosed based on: ??? Your symptoms and medical history. ??? A physical exam. ??? Blood or urine tests to check for possible causes, such as infection. You may also need to see a health care provider who specializes in urinary tract problems. This is called a urologist. How is this treated? Treatment for overactive bladder depends on the cause of your condition and whether it is mild or severe. Treatment may include: ??? Bladder training, such as: ? Learning to control the urge to urinate by following a schedule to urinate at regular intervals. ? Doing Kegel exercises to strengthen the pelvic floor muscles that support your bladder. ??? Special devices, such as: ? Biofeedback. This uses sensors to help you become aware of your body's signals. ? Electrical stimulation. This uses electrodes placed inside the body (implanted) or outside the body. These electrodes send gentle pulses of electricity to strengthen the nerves or muscles that control the bladder. ? Women may use a plastic device, called a pessary, that fits into the vagina and supports the bladder. ??? Medicines, such as: ? Antibiotics to treat bladder infection. ? Antispasmodics to stop the bladder from releasing urine at the wrong time. ? Tricyclic antidepressants to relax bladder muscles. ? Injections of botulinum toxin type A directly into the bladder tissue to relax bladder muscles. ??? Surgery, such as: ? A device may be implanted to help manage the nerve signals that control urination. ? An electrode may be implanted to stimulate electrical signals in the bladder. ? A procedure may be done to change the shape of the bladder. This is done only in very severe cases. Follow these instructions at home: Eating and drinking ??? Make diet or lifestyle changes recommended by your health care provider. These may include: ? Drinking fluids throughout the day and not only with meals. ? Cutting down on caffeine or alcohol. ? Eating a healthy and balanced diet to prevent constipation. This may include: ? Choosing foods that are high in fiber, such as beans, whole grains, and fresh fruits and vegetables. ? Limiting foods that are high in fat and processed sugars, such as fried and sweet foods. Lifestyle ??? Lose weight if needed. ??? Do not use any products that contain nicotine or tobacco. These include cigarettes, chewing tobacco, and vaping devices, such as e-cigarettes. If you need help quitting, ask your health care provider. General instructions ??? Take tgtf-glb-tvzsvde and prescription medicines only as told by your health care provider. ??? If you were prescribed an antibiotic medicine, take it as told by your health care provider. Do not stop taking the antibiotic even if you start to feel better. ??? Use any implants or pessary as told by your health care provider. ??? If needed, wear pads to absorb urine leakage. ??? Keep a log to track how much and when you drink, and whe (more content not included)... [facility] 02-26-2024 History of Present illness Narrative amb documented in this encounter [facility] 02-20-2024 Evaluation note Diagnosis Onset Date Resolution Carotid stenosis acute February 20, 2024 10:00am Internal carotid artery stent present acute February 10:00am Lower extremity edema acute Matt uary 2024 10:00am PAD (peripheral artery disease) acute February 19 10:00am [facility] Work Phone: [phone] 295-506612-18-2024 NoteUrology Office/Clinic Note HPI Staff Pt is a rereferral for recurrent UTI by Cindy Collado NP Previous dx: UTI PVR today is 19ml. 04/2023 - Klebsiella Dysuria: pain in right lower abdomen Incomplete bladder emptying: unsure Hematuria: denies Frequency: yes Urgency: yes Nocturia: 3x Stream: pt can not describe Leaking: yes Post void dripping: denies Wearing pads/ Depends: depends changes at the least 12x daily fully soaked Urge incontinence: yes Stress incontinence: denies Incontinence without Sensory Awareness: Abdominal pain: pt states she is having pain in her lower right abdomen Flank pain: denies Sexual complaints: denies History of Present Illness I have reviewed and verified the staff HPI to be accurate for this encounter. Physical Exam General: Well developed, well nourished, in no acute distress. Assessment/Plan 1. Recurrent UTI (N39.0: Urinary tract infection, site not specified) 04/2023 - Klebsiella 07/15/23 - E Coli - tx w/ Macrobid 10/26/23 - >100K Klebsiella, >100K ESBL E. Coli - tx w/ Bactrim 11/16/23- >100K E. Coli, probable ESBL 01/31/24 - E. Coli, Strep agalactiae - tx w/ macrobid, switched to cipro based on sensitivity UA today negative for infection or blood Pt re-referred to our office today for recurrent UTIs by Cindy Barron NP. Pt currently be treatedfor UTI. UCx listed above. Was started on Macrobid 01/20, switched to Ciprofloxacin based on susceptibility. Remains on ABX at this time. Pt states sxs are improving but she continues to have some suprapubic discomfort on exam today. Unfortunately, history provided today is limited given pt's hx ofCVA. most recent UTI - 01/21/24 UA in office today not suspicious for UTI current UTI symptoms no UTI frequency 5x/yr UTIs started worsening in the past 1-2 yrs Prior to that averaged UTIs - pt unsure pt's typical UTI sx include - dysuria, frequency, foul smell, abd pain hx stones no immunosuppressed no post-menopausal/hysterectomy yes proper hygiene habits: wipes front to back every time yes avoids baths/hot tubs yes avoids scented [employer] products no urinates after sexual activity n/a Today we discussed the following methods to decrease frequency of UTIs: 1) Increase fluids. Aim for at least 2L daily. General bladder health reviewed and pt education provided. Bladder irritant list provided for pt to review. Pt mostly drinking soda and iced tea 2) Ensure bladder emptying fully. PVR today 19. Discussed timed voids 3) We discussed that there is evidence that herbal supplements may help - cranberry, probiotics, and d-mannose. Discussed possible need for KUB & FAIZAN to rule out stones as contributing factor to UTIs. Briefly discussed starting Estrace cream as well, however, patient became overwhelmed and tearful with abundance of information provided at today's visit so further discussion was stopped. Recommend the following: -Start OTC supplements (cranberry, probiotics, D-mannose) -Increase fluid intake -Advised to contact our office w/ all future UTI sx so we can monitor urine cx results & treat appropriately -Pt advised if develops fever, severe flank pain, vomiting - needs to go to ER -Follow up in 2-3 months w/ PVR 2. Incontinence without sensory awareness (N39.42: Incontinence without sensory awareness) PVR 19 mL Patient reports constant leakage of urine, not always with urge to void. She has a hard time verbalizing her sxs today. Wears depends/pads, changes 12x/day. Pt did not mention if she is still taking Trospium. See #1. -Will discuss at future visit in more detail -Timed voids I, Kori German PA-C, personally scribed for Bernice Clemente PA-C on 01/29/2024 12:42:57. . Documentation recorded by the scribdrake German accurately reflects the services(s) I performed and decisions made by me. Authenticated by Bernice Clemente PA-C on 01/29/2024 14:48:22. Follow-up With When Contact Information CORRIE EDEN, BERNICE Carias, URL [id number] [place] [address] Additional Instructions: F/U 2-3 months Patient Education Urinary Tract Infection, Adult Urinary Incontinence Problem List/Past Medical History Ongoing Dysuria Headache Hypertension Incontinence without sensory awareness Recurrent UTI Stroke UTI (urinary tract infection) White matter disease Historical No qualifying data Procedure/Surgical History Breast surgery, Gastric bypass, Hysterectomy, Knee replacement. Medications amLODIPine 2.5 mg Tab aspirin 81 mg Chew Tab, Chewed, Daily BACLOFEN 20MG TAB, 0 ciprofloxacin 500 mg Tab ClonazePAM 0.5 mg Tab FeroSul 325 mg oral tablet, Oral, TID furosemide 40 mg Tab metoprolol 25 mg ER Tab, Oral, Daily Potassium Chloride (Opy-Phhs-Jkk M10) 10 mEq oral tablet, extended release quetiapine 50 mg oral tablet rosuvastatin 20 mg Tab topiramate 50 mg Tab trospium 60 mg oral (more content not included)...[facility] Comment on above:Result Comment: Electronically Signed By: BERNICE CLEMENTE PA-C\.br\Date and Time Signed: 01/28/2414:48 EST\.br\Electronically Co-Signed By: Kori German PA-C\.br\Date and Time Co-Signed: 01/29/2412:49 [id number] Hospital Discharge instructions Patient Education 01/29/2024 12:46:53 Urinary Tract Infection, Adult Urinary Tract Infection, Adult A urinary tract infection (UTI) is an infection of any part of the urinary tract. The urinary tractincludes the kidneys, ureters, bladder, and urethra. These organs make, store, and get rid of urinein the body. An upper UTI affects the [...] Treatment for this condition includes: Antibiotic medicine. Jscj-ovg-xrjsfjk medicines to treat discomfort. Drinking enough water to stay hydrated. If you have frequent infections or have other conditions such as a kidney stone, you may need to see a health care provider who specializes in the urinary tract (urologist). In rare cases, urinary tract infections can cause sepsis. Sepsis is a life- threatening condition that occurs when the body responds to an infection. Sepsis is treated in the hospital with IV antibiotics, fluids, and other medicines. Follow these instructions at home: Medicines Take aupw-oiw-ahwmjqj and prescription medicines only as told by your health care provider. If you were prescribed an antibiotic medicine, take it as told by your health care provider. Do notstop using the antibiotic even if you start [...] told by your health care provider. Do notstop using the antibiotic even if you start to feel better. Keep all follow-up visits. This is important. This information is not intended to replace advice given to you by your health care provider. Make sure you discuss any questions you have with your health care provider. Document Revised: 09/04/2020 Document Reviewed: 09/09/2020 [email or web address] Patient Education 2023 [employer]. 01/29/2024 12:46:48 Urinary Incontinence Urinary Incontinence Urinary incontinence refers to a condition in which a person is unable to control where and when topass urine. A person with this condition will urinate involuntarily. This means that the person urinates when he or she does not mean to. What are the causes? This condition may be caused by: Medicines. Infections. Constipation. Overactive bladder muscles. Weak bladder muscles. Weak pelvic floor muscles. These muscles provide support for the bladder, intestine, and, in women,the uterus. Enlarged prostate in men. The prostate [...] a small amount, or constantly dribbling urine (overflowincontinence). Urinating because you cannot get to the [...] fiber include beans, whole grains, and fresh fruitsand vegetables. Behavioral changes, such as: ?Pelvic floor [...] nerve stimulation). ?For women, using a medical chief technician to prevent urine leaks. This is a small, tampon-like, disposabledevice that is inserted into the urethra. ?Injecting [...] right after experiencing incontinence. General instructions Take nunw-jwl-voymgvg and prescription medicines only as told by [...] important. Where to find more information [employer] [place] [employer] and [employer]estive and Kidney Diseases: www.niddk.nih.gov [employer]: www.urologyhealth.org Contact a health care [...] is unable to control where and when topass urine. This condition may be caused by medicines, infection, weak bladder muscles, weak pelvic floor muscles, enlargement of the prostate (in men), or surgery. Factors such as older age, obesity, and childbirth, menopause, neurological diseases, andchronic coughing may increase your risk for developing [...] provider. Document Revised: 09/02/2020 Document Reviewed: 09/02/2020 [email or web address] Patient Education 2023 [employer]. Follow Up Care 01/28/2024 10:11:46 With:CORRIE EDEN, BERNICE Carias, MAXIMINO Address: [place] [address] When: Unknown Comments:F/U 2-3 months [facility] [place] [id number] NotePatient Education Obstetrics and Gynecology Urinary Tract Infection, Adult A urinary tract infection (UTI) is an infection of any part of the urinary tract. The urinary tractincludes the kidneys, ureters, bladder, and urethra. These organs make, store, and get rid of urinein the body. An upper UTI affects the [...] more likely to develop this condition if: ??? You have a urinary catheter that stays in place. ??? You are not able to control when you urinate or have a bowel movement (incontinence). ??? You are female and you: ? Use a spermicide or diaphragm for control. ? Have low estrogen levels. ? Are . ??? You have certain genes that increase your risk. ??? You are sexually active. ??? You take antibiotic medicines. ??? You have a condition that causes your flow of urine to slow down, such as: ? An enlarged prostate, if you are male. ? Blockage in your urethra. ? A kidney stone. ? A nerve condition that affects your bladder control (neurogenic bladder). ? Not getting enough to drink, or not urinating often. ??? You have certain medical conditions, such as: ? Diabetes. ? A weak disease-fighting system (immunesystem). ? Sickle cell disease. ? Gout. ? Spinal cord injury. What are the signs or symptoms? Symptoms of this condition include: ??? Needing to urinate right away (urgency). ??? Frequent urination. This may include small amounts of urine each time you urinate. ??? Pain or burning with urination. ??? Blood in the urine. ??? Urine that smells bad or unusual. ??? Trouble urinating. ??? Cloudy urine. ??? Vaginal discharge, if you are female. ??? Pain in the abdomen or the lower back. You may also have: ??? Vomiting or a decreased appetite. ??? Confusion. ??? Irritability or tiredness. ??? A fever or chills. ??? Diarrhea. The first symptom in older adults may be confusion. In some cases, they may not have any symptoms until the infection has worsened. How is this diagnosed? This condition is diagnosed based on your medical history and a physical exam. You may also have other tests, including: ??? Urine tests. ??? Blood tests. ??? Tests for STIs (sexually transmitted infections). If you have had more than one UTI, a cystoscopy or imaging studies may be done to determine the cause of the infections. How is this treated? Treatment for this condition includes: ??? Antibiotic medicine. ??? Usre-fpv-rswxtpy medicines to treat discomfort. ??? Drinking enough water to stay hydrated. If you have frequent infections or have other conditions such as a kidney stone, you may need to see a health care provider who specializes in the urinary tract (urologist). In rare cases, urinary tract infections can cause sepsis. Sepsis is a life- threatening condition that occurs when the body responds to an infection. Sepsis is treated in the hospital with IV antibiotics, fluids, and other medicines. Follow these instructions at home: Medicines ??? Take voqm-fxu-hlwohjp and prescription medicines only as told by your health care provider. ??? If you were prescribed an antibiotic medicine, take it as told by your health care provider. Donot stop using the antibiotic even if you start to feel better. General instructions ??? Make sure you: ? Empty your bladder often and completely. Do not hold urine for long periods of time. ? Empty your bladder after sex. ? Wipe from front to back after urinating or having a bowel movement if you are female. Use each tissue only one time when you wipe. ??? Drink enough fluid to keep your urine pale yellow. ??? Keep all follow-up visits. This is important. Contact a health care provider if: ??? Your symptoms do not get better after 1?2 days. ??? Your symptoms go away and then return. Get help right away if: ??? You have severe pain in your back or your lower abdomen. ??? You have a fever or chills. ??? You have nausea or vomiting. Summary ??? A urinary tract infection (UTI) is an infection of any part of the urinary tract, which includes the kidneys, ureters, bladder, and urethra. ??? Most urinary tract infections are caused by bacteria in your genital area. ??? Treatment for this condition often includes antibiotic medicines. ??? If you were prescribed an antibiotic medicine, take it as told by your health care provider. Donot stop using the antibiotic even if you start to feel better. ??? Keep all follow-up visits. This is important. This information is not intended to replace advice given to you by your health care provider. Make sure you di (more content not included)...[facility]12-12-2024 History of Present illness Narrative* Cindy Collado NP - 01/23/2024 11:37 AM ESTAssociated Problem(s): Chronic UTI Contacted urology , they ask w put in new referral for urology, although was last seen in 09/03 Will refer back to urology Today's culture pending 01/21/24: e coli and strept B, initially started on macrobid, changed on 01/23/24 to cipro 11/16/23 e coli, tx macrobid 10/26/23 Klebsiella bactrim 06/03/23: no culture, treated with bactrim by Barb 02/20/23 [id number] History of Present illness Narrative* Cindy Collado NP - 01/21/2024 11:59 AM ESTAssociated Problem(s): Chronic UTI Contacted urology , they ask w put in new referral for urology, although was last seen in 09/03 Will refer back to urology Today's culture pending 11/16/23 e coli, tx macrobid 10/26/23 Klebsiella bactrim 06/03/23: no culture, treated with bactrim by Barb 02/20/23 ecoli * Cindy Collado NP - 01/21/2024 11:53 AM ESTAssociated Problem(s): UTI symptoms Treat with macrobid, send for health trax culture * Cindy Collado NP - 01/21/2024 11:52 AM ESTAssociated Problem(s): Overflow incontinence of urine Will reach out to Urology office to get an appt with them * Cindy Collado NP - 01/21/2024 10:42 AM ESTAssociated Problem(s): Iron deficiency Labs stable, cont current meds * Cidny Collado NP - 01/21/2024 10:42 AM ESTAssociated Problem(s): Cerebrovascular accident (CVA) ([facility]) Continue w neurology Cont statin, asa and blood pressure meds * LYNSEY LOZANO - 01/21/2024 9:40 AM EST Pt states she has been having burning for a while when urinating. She is having frequent urination and inc. She is stating she goes thru 6-8 briefs daily. She has not called her urologist yet. Pt is having pelvic pain. Pt is trying to get physical therapy and at home therapy She was given a paper for diet changes that she has been doing since seeing the specialist * Cindy Collado NP - 01/21/2024 9:40 AM EST Images from the original note were not included. Ozzie Gifford is a 73 y.o. female presents with chief complaint of Oropharyngeal dysphagia HPI: Here for recheck: No significant changes in her health conditions Thinks has UTI: malodorous, incontinence, no fever, no NVD, no constipation No changes with neurology or ENT symptoms either SUBJECTIVE: MEDICATIONS: Current Outpatient Medications Medication Instructions amLODIPine (NORVASC) 2.5 mg, Oral, Daily aspirin (ASPIRIN ADULT LOW STRENGTH) 81 mg, Oral, Daily baclofen (LIORESAL) 20 mg, Oral, 3 times daily cetirizine (ZyrTEC) 10 MG tablet Take by mouth clonazePAM (KLONOPIN) 0.5 mg, Oral, 2 times daily ferrous sulfate (FEROSUL) 325 mg, Oral, Daily with breakfast furosemide (LASIX) 20 mg, Daily meclizine (ANTIVERT) 25 mg, 3 times daily PRN metoprolol succinate XL (TOPROL-XL) 25 mg, Oral, Daily, Do not crush or chew nitrofurantoin (macrocrystal-monohydrate) (MACROBID) 100 mg, Oral, 2 times daily potassium chloride ER (Micro-K) 10 MEQ ER capsule 10 mEq, Oral, Daily QUEtiapine (SEROQUEL) 50 mg, Oral, Nightly rosuvastatin (CRESTOR) 20 mg, Oral, Nightly topiramate 50 mg, Oral, Nightly trospium (SANCTURA) 60 mg, 2 times daily ALLERGIES: Allergies Allergen Reactions Penicillin G Unknown Penicillins Rash REVIEW OF SYMPTOMS: Review of Systems Constitutional: Negative for appetite change, chills and fever. HENT: Negative for congestion, ear pain and sore throat. Eyes: Negative for pain, discharge, redness and visual disturbance. Respiratory: Negative for cough, shortness of breath and wheezing. Cardiovascular: Negative for chest pain, palpitations and leg swelling. Gastrointestinal: Negative for abdominal pain, blood in stool, constipation, diarrhea, nausea and vomiting. Genitourinary: Negative for difficulty urinating, dysuria and frequency. Musculoskeletal: Negative for arthralgias, back pain, joint swelling and myalgias. Skin: Negative for rash and wound. Neurological: Negative for dizziness, tremors, seizures, syncope and headaches. Psychiatric/Behavioral: Negative for behavioral problems, self-injury and suicidal ideas. The patient is not nervous/anxious. Hematological: Does not bruise/bleed easily. Endocrine: Negative for polydipsia, polyphagia and polyuria. Allergic/Immunologic: Negative for environmental allergies and food allergies. PAST MEDICAL HISTORY Past Medical History: Diagnosis Date Arthritis Chronic back pain Depression (CMS/HCC) Disturbance of skin sensation 12/02/2015 HTN (hypertension) (CMS/HCC) Muscle spasm 12/02/2015 Myoclonus 12/02/2015 Obesity Past Surgical History: Procedure Laterality Date BARIATRIC SURGERY BREAST SURGERY CATARACT EXTRACTION cataracts CHOLECYSTECTOMY GASTRIC BYPASS HYSTERECTOMY IR INTERVENTION NEURO THROMBECTOMY 04/05/2018 IR INTERVENTION NEURO THROMBECTOMY 04/05/2018 OTHER SURGICAL HISTORY Knee Arthroscopy TOTAL ABDOMINAL HYSTERECTOMY TOTAL KNEE ARTHROPLASTY Right with loosening of hardware (4 surgeries total) family history includes Cancer in her father and mother; Diabetes in her father; Heart disease in her father; Hypertension in her mother. OBJECTIVE: Visit Vitals BP 116/76 (BP Location: Left arm, Patient Position: Sitting, BP Cuff Size: Adult long) Pulse 61 Temp 97.8 F (Temporal) Resp 19 Ht 5' 1 Wt 149 lb 3.2 oz SpO2 98% BMI 28.19 kg/m Smoking Status Former BSA 1.71 m Physical Exam Vitals and nursing note reviewed. Constitutional: General: She is not in acute distress. Appearance: Normal appearance. She is ill-appearing (chronically). HENT: Head: Normocephalic and atraumatic. Right Ear: External ear normal. Left Ear: External ear normal. Nose: Nose normal. Mouth/Throat: Mouth: Mucous membranes are moist. Eyes: Extraocular Movements: Extraocular movements intact. Conjunctiva/sclera: Conjunctivae normal. Cardiovascular: Rate and Rhythm: Normal rate and regular rhythm. Pulses: Normal pulses. Heart sounds: Normal heart sounds. Pulmonary: Effort: Pulmonary effort is normal. Breath sounds: Normal breath sounds. Abdominal: General: Bowel sounds are normal. There is no distension. Palpations: Abdomen is soft. There is no mass. Tenderness: There is no abdominal tenderness. Musculoskeletal: General: Normal range of motion. Cervical back: Normal range of motion and neck supple. Right lower leg: Edema present. Left lower leg: Edema present. Comments: Trace-1+ bilat pedal Generalized weakness noted Skin: General: Skin is warm and dry. Capillary Refill: Capillary refill takes 2 to 3 seconds. Findings: No rash. Neurological: General: No focal deficit present. Mental Status: She is alert and oriented to person, place, and time. Motor: Weakness present. Gait: Gait abnormal. Psychiatric: Mood and Affect: Mood normal. Behavior: Behavior normal. Thought Content: Thought content normal. Judgment: Judgment normal. ASSESSMENT AND PLAN: Follow up in about 2 months (around 03/23/2024) for Recheck. Problem List Items Addressed This Visit Coronary atherosclerosis ([facility]) Continue with cardiology Is on statin, asa, b jimmy and amlodipine Check lipids yearly and prn dose changes Relevant Medications aspirin (Aspirin Adult Low Strength) 81 MG chewable tablet rosuvastatin (Crestor) 20 MG tablet Cerebrovascular accident (CVA) ([facility]) Continue w neurology Cont statin, asa and blood pressure meds Relevant Medications aspirin (Aspirin Adult Low Strength) 81 MG chewable tablet rosuvastatin (Crestor) 20 MG tablet Primary hypertension ([facility]) - Primary Please check blood pressure daily and record DASH diet Limit caffeine Take medication as directed Contact office if chest pain, pressure, dizziness, shortness of breath, swelling legs Recommend slow position changes Current meds: asa, amlodipine, metoprolol XL Relevant Medications amLODIPine (Norvasc) 2.5 MG tablet aspirin (Aspirin Adult Low Strength) 81 MG chewable tablet metoprolol succinate XL (Toprol-XL) 25 MG 24 hr tablet potassium chloride ER (Micro-K) 10 MEQ ER capsule Recurrent major depressive disorder, in full remission ([facility]/HCC) Takes klonopin prn, topirmate, seroquel as well Migraine with aura and without status migrainosus, not intractable ([facility]) Continue with topirimate Relevant Medications topiramate 50 MG tablet Overflow incontinence of urine Will reach out to Urology office to get an appt with them Relevant Orders Ambulatory referral to Urology Carotid artery stenosis Statin, asa, vascular monitoring Relevant Medications rosuvastatin (Crestor) 20 MG tablet Heart failure, unspecified ([facility]/HCC) Current meds: lasix, bblocker, crestor and amlodipine Does follow with [facility] cardiology Does have LE edema noted as well today, no dyspnea Peripheral vascular disease, unspecified ([facility]/HCC) On statin, asa CRYSTAL (generalized anxiety disorder) ([facility]) Has been on klonopin for some time OARRS reviewed Muscle spasm Takes baclofen Relevant Medications baclofen (Lioresal) 20 MG tablet Iron deficiency Labs stable, cont current meds Relevant Medications ferrous sulfate (FeroSul) 325 (65 Fe) MG tablet Psychophysiological insomnia Relevant Medications QUEtiapine (SEROquel) 50 MG tablet UTI symptoms Treat with macrobid, send for health trax culture Relevant Medications nitrofurantoin, macrocrystal-monohydrate, (Macrobid) 100 MG capsule Other Relevant Orders POCT Urinalysis dipstick (Completed) Urine culture (clean catch) URINARY TRACT INFECTION (HTRX) Ambulatory referral to Urology Chronic UTI Contacted urology , they ask w put in new referral for urology, although was last seen in 09/03 Will refer back to urology Today's culture pending 11/16/23 e coli, tx macrobid 10/26/23 Klebsiella bactrim 06/03/23: no culture, treated with bactrim by Barb 02/20/23 ecoli Relevant Orders Ambulatory referral to Urology Other Visit Diagnoses Anxiety and depression ([facility]) Relevant Medications clonazePAM (KlonoPIN) 0.5 MG tablet * Cindy Collado NP - 01/21/2024 6:46 AM ESTAssociated Problem(s): Migraine with aura and without status migrainosus, not intractable ([facility]) Continue with topirimate * Cindy Collado NP - 01/21/2024 6:46 AM ESTAssociated Problem(s): Muscle spasm Takes baclofen * Cindy Collado NP - 01/21/2024 6:45 AM ESTAssociated Problem(s): CRYSTAL (generalized anxiety disorder) (CMS/HCC) Has been on klonopin for some time OARRS reviewed * Cindy Collado NP - 01/21/2024 6:39 AM ESTAssociated Problem(s): Recurrent major depressive disorder, in full remission (CMS/HCC) Takes klonopin prn, topirmate, seroquel as well * Cindy Collado NP - 01/21/2024 6:39 AM ESTAssociated Problem(s): Carotid artery stenosis Statin, asa, vascular monitoring * Cindy Collado NP - 01/21/2024 6:38 AM ESTAssociated Problem(s): Coronary atherosclerosis (CMS/HCC) Continue with cardiology, swelling in legs ??heart failure related Is on statin, asa, b jimmy and amlodipine Check lipids yearly and prn dose changes * Cindy Collado NP - 01/21/2024 6:38 AM ESTAssociated Problem(s): Heart failure, unspecified (CMS/HCC) Current meds: lasix, bblocker, crestor and amlodipine Does follow with [facility] cardiology Does have LE edema noted as well today, no dyspnea * Cindy Collado NP - 01/21/2024 6:37 AM ESTAssociated Problem(s): Peripheral vascular disease, unspecified (CMS/HCC) On statin, asa * Cindy Collado NP - 01/21/2024 6:37 AM ESTAssociated Problem(s): Primary hypertension (CMS/HCC) Please check blood pressure daily and record DASH diet Limit caffeine Take medication as directed Contact office if chest pain, pressure, dizziness, shortness of breath, swelling legs Recommend slow position changes Current meds: asa, amlodipine, metoprolol XL documented in this [facility]12-10-2024 Instructions* Patient Instructions* Cindy Collado NP - 01/21/2024 9:40 AM EST We will enroll you in Chronic Care Management with [facility] Ordered antibiotic, if we need to change atb based on culture will let you know I will call Urology office too to get you in documented in this [facility]10-28-2024 History of Present illness Narrative* Nakul Zazueta DO - 12/09/2023 9:00 AM EDT Images from the original note were not included. Chief complaint: Dizziness and imbalance Subjective Ozzie Gifford, 73 y.o., female HPI Ozzie, 73 y.o., female presents today for consultation at the request of Cindy Kohli NP for dizziness, impaired mobility and migraines. Recently seen at [facility]. A CT head, CT angio neck/head and MRI brain were completed. Patient presents today with . Patient ambulates with cane. Patient notes that dizziness has been present for over the last 6-9 mo's. She says that it occurs daily. Describes dizziness as room spinning and overwhelming sense of imbalance. Notes that she has to grab onto something solid to keep from falling. Occur from going from sitting to standing. Patient has not experiences LOC. Reports balance is impaired. Admits falls. Denies PT. Denies hydrating.Admits caffeine in morning cup of coffee. Drinks decafe tea during the day. Reports that she is up all night long most of the nights. Notes that she has trouble falling and staying asleep. Patient also reports migraines. Started 6-9 mo's ago. Occur intermittent. Notes that they lost a pet and theirson and have been under some stress. Denies OTC meds. Describe the pain sharp Where is it located top of her head, more on the right side. Denies neck pain. Admits tingling/numbness in bilat hands. Denies ight sound sensitivity. Denies Nausea/vomiting Review of Systems Constitutional: Negative for appetite change, fatigue and fever. Respiratory: Negative for cough, shortness of breath and wheezing. Cardiovascular: Negative for chest pain, palpitations and leg swelling. Gastrointestinal: Negative for abdominal pain, constipation, diarrhea and nausea. Musculoskeletal: Positive for gait problem. Negative for arthralgias and myalgias. Neurological: Positive for dizziness and numbness. Negative for tremors and headaches. Past Medical History: Diagnosis Date Arthritis Chronic back pain Depression (CMS/HCC) Disturbance of skin sensation 12/02/2015 HTN (hypertension) (CMS/HCC) Muscle spasm 12/02/2015 Myoclonus 12/02/2015 Obesity Past Surgical History: Procedure Laterality Date BARIATRIC SURGERY BREAST SURGERY CATARACT EXTRACTION cataracts CHOLECYSTECTOMY GASTRIC BYPASS HYSTERECTOMY IR INTERVENTION NEURO THROMBECTOMY 04/05/2018 IR INTERVENTION NEURO THROMBECTOMY 04/05/2018 OTHER SURGICAL HISTORY Knee Arthroscopy TOTAL ABDOMINAL HYSTERECTOMY TOTAL KNEE ARTHROPLASTY Right with loosening of hardware (4 surgeries total) Family History Problem Relation Name Age of Onset Hypertension Mother Cancer Mother Cancer Father Heart disease Father Diabetes Father Social History Tobacco Use Smoking status: Former Types: Cigarettes Passive exposure: Current Smokeless tobacco: Never Substance Use Topics Alcohol use: Never Allergies: Penicillin g and Penicillins Vitals: 12/09/23 0853 BP: 132/82 Body mass index is 28.15 kg/m . weight: 149 lb Neurologic exam: Mental status: Awake, alert to person, place and time. Recent and remote memory are intact. Language is fluent without aphasia. Attention and concentration are normal. Fund of knowledge is appropriate for level of education. Cranial nerves: CN II: Visual acuity is normal. Visual hadley full to confrontation. CN III, IV, : pupils equal round and reactive to light. Extraocular movements intact. No ptosis present. CN V: Facial sensation is normal. CN VII: Full and symmetric facial movement. CN VIII: Hearing is normal to finger rub bilaterally: CN IX and X: Palate elevates symmetrically. CN XI: Shoulder shrug is normal bilaterally. CN XII: Tongue is midline without atrophy or fasciculation. Motor: RUE Strength deltoid, , biceps , triceps , wrist extensors , wrist flexor , trimmer sorter strength 5/5. LUE Strength deltoid , biceps , triceps , wrist extensors , wrist flexor , trimmer sorter strength 5/5. RLE Strength illopsoas, quadriceps, tibialis anterior, and gastrocnemius strength 5/5. LLE Strength illopsoas, quadriceps, tibialis anterior, and gastrocnemius strength 5/5. Normal tone x4 extremities. Bradykinesia is noted in the upper extremities. No clear tremor. Bulk is normal. Sensory: Sensation is intact to light touch throughout Four extremities. Reflexes: RUE biceps reflex 2+ brachioradialis reflex 2+ . LUE biceps reflex 2+ brachioradialis reflex 2+ . RLE knee reflex 1+ . LLE knee reflex 1+ . Stephens's sign negative. Coordination: Substantial truncal ataxia noted. Abnormal [id number] testing. Abnormal [id number]-te-qkhf testing. Gait: Patient has a substantially magnetic gait and walks with a cane and is very unsteady while walking Review and summary of old records: MRI of the brain without contrast on 03/01/2023: No acute ischemia. Multifocal remote infarcts involving the supratentorial brain with superimposed white matter changes. CT angiogram of the head and neck on 03/01/2023: Short segment severe stenosis versus occlusion of the origin of the left external carotid artery. Short segment 50 percent stenosis involving the origin of the right brachiocephalic artery and narrowing approaching but not exceeding 50 percent stenosis of the right subclavian artery. 45-50 percent stenosis of the right internal carotid artery. No significant stenosis, large vessel occlusion, aneurysm or dissection noted involving the intracranialvasculature. CT of the brain without contrast on 03/01/2023: Stable atrophy and white matter changes. LDL: 44 on 10/26/2023 Assessment/Plan Diagnoses and all orders for this visit: Ataxia It is my impression that the patient has substantial ataxia on aaqsrw-ca-onus testing, she also hastruncal ataxia noted when closing her eyes and difficulty with djji-[id number]. She has an ataxic gaitas well. This seems to be progressive over the course of the last 9 months or so. MRI demonstrates old strokes but does not find any new or acute findings. There is no mention of definitive atrophy of the brainstem. Given the progressive nature of the condition, the patient's age and other factors I am suspicious for a neurodegenerative process such as multi-system atrophy type C. I do not see asmany parkinsonian features such as rigidity but there is mild bradykinesia. No clear tremor. Less likely considerations are given to adult onset spinal cerebellar ataxias Plan: I do suggest regular utilization of a walker as I think the patient's current utilization of the cane is not sufficient and the patient has a very high risk for falls We will order physical and occupational therapy. The patient has requested these be done at [facility] only. We will keep in mind consideration for testing levodopa responsiveness at follow up Patient may need to be referred to tertiary care center such as [facility] [place] to evaluate for any potential research opportunities or alternative treatment options. History of ischemic stroke It is my impression that the patient has been having 6-9 months of dizziness. The patient did have this as a quite substantial problem in February of 2023 and was actually seen at [facility] where she had CT, CT angiogram of the head and neck and MRI. MRI was negative/ unremarkable for acute pathology. There was evidence of old ischemic infarcts. Patient does take aspirin for this. Patient's LDL is 44 which is also appropriate. Patient also happens to be on Crestor. As the MRI does not show a reason for the patient's dizziness and with the severity explained and the fact that does seem to be somewhat positional I wonder if this is inner ear in nature such as BPPV. Plan: Continue aspirin 81 mg p.o. daily for secondary stroke prevention Okay to continue Crestor and follow up management of blood sugar, blood pressure and cholesterol with primary care Signs and symptoms of stroke discussed in detail. Patient understands and will proceed to the emergency department right away with any such signs or symptoms for appropriate treatment as these could be life-threatening or debilitating. Pt has been fully educated on their diagnosis, lab results, treatment options, follow up plan, and return instructions this is a high degree morbidity and mortality condition with high-level medical decision-making and need for extensive records review, discussion with the patient and who are present today for the visit and need for therapy and further monitoring of the patient. documented in this encounterDeaconess Incarnate Word Health [id number] History of Present illness Narrative* Aime Tye DO Kavita - 12/02/2023 1:30 PM EDT Subjective Patient ID: HPI Patient is a 73-year-old female referred was dysphagia. She says this all started about 4-5 months ago suddenly. It is when her son . She has significant solid food dysphagia, often having to regurgitate things that she eats. She is pretty much surviving on mashed potatoes and scrambled eggs. She has lost some weight. She underwent a modified barium swallow to an outside hospital but it is pretty much use less. Review of Systems ROS The specialty specific review of systems is noncontributory except for that recorded in the intake questionnaire and /or described in the history of present illness. Objective ENT Physical Exam Physical Exam Constitutional: Appearance: Normal appearance. HENT: Head: Atraumatic. Ears: External ear shows no abnormality Bilateral ear canals are clear Tympanic membranes intact, no evidence of middle ear fluid or other pathology. Nose: External nose appears to be normal Nares patent. Septal deviation to the left No evidence of polyp, mass or pus bilaterally. Oral Cavity: No evidence of trismus Lips appear normal Dental edentulous Tongue of normal size and configuration, floor of mouth mucosa clear. Buccal mucosa shows no evidence of ulceration, mass or other abnormality Hard palate soft palate mucosa intact with no evidence of mass, ulceration or other abnormality Uvula of normal size and configuration Oropharynx: Tonsils atrophic Posterior pharyngeal wall normal Neck: No evidence of palpable abnormality Thyroid without evidence of thyromegaly or mass. No cervical lymphadenopathy present. Cardiovascular: Rate and Rhythm: Normal rate and regular rhythm. . Skin: General: Skin is warm and dry. Neurological: General: No focal deficit present. Mental Status: alert and oriented to person, place, and time. FIBEROPTIC NASOPHARYNGOLARYNGOSCOPY A diagnostic flexible fiberoptic laryngoscopy was performed. The flexible fiberoptic laryngoscope was placed into the nose and advanced to the level of the tip of the epiglottis. Examination of the larynx including both surfaces of the epiglottis false and true vocal folds, arytenoids and surrounding mucosal surfaces show no evidence of lesion, ulceration or mass. Normal bilateral true vocal foldmotion is present. Bilateral piriform sinuses and base of tongue appear without lesion . She has a lot of epiglottic inversion. She has got significant pooling of secretion particularly in the right piriform sinus. Assessment/Plan Ozzie was seen today for oropharyngeal dysphagia. Diagnoses and all orders for this visit: Oropharyngeal dysphagia Comments: I am going to repeat the MBS with our speech pathologist as well as an esophagram look of her stricture, cricopharyngeal bar, etcetera. Orders: - Ambulatory referral to ENT documented in this encounterDeaconess Incarn[facility] Word Health [id number] History of Present illness Narrative* Cindy Collado NP - 10/22/2023 11:19 AM EDTAssociated Problem(s): Oropharyngeal dysphagia Cont with speech therapy Will refer to ENT * Cindy Collado NP - 10/22/2023 11:17 AM EDTAssociated Problem(s): Dizziness and giddiness Refer to neuro * Cindy Collado NP - 10/22/2023 11:17 AM EDTAssociated Problem(s): Carotid artery stenosis Cont statin, and ASA * Cindy Collado NP - 10/22/2023 11:17 AM EDTAssociated Problem(s): Coronary atherosclerosis (CMS/HCC) Crestor, toprol and ASA * Cindy Collado NP - 10/22/2023 11:16 AM EDTAssociated Problem(s): Primary hypertension (CMS/HCC) stable * Cindy Collado NP - 10/22/2023 11:16 AM EDTAssociated Problem(s): Cerebrovascular accident (CVA) (CMS/HCC) Would like a more local neurologist * LYNSEY LOZANO - 10/22/2023 9:40 AM EDT Pt had therapy this morning for her throat for her to be able to eat and swallow Pt had physical therapy yesterday for weakness and walking. Pt is having some soreness from therapy Pt is Asprin 81 chewables-[facility] (90 day supply) Cindy Mateus- furosemide they will need a new order (20mg) Pt states she gets migraines nearly everyday. She may not have one for a day or so here and there. * Cindy Collado NP - 10/22/2023 9:40 AM EDT Images from the original note were not included. Ozzie Gifford is a 73 y.o. female presents with chief complaint of No chief complaint on file. HPI: Here to transition to care with this provider: I have reviewed dr day's notes, labs, and cardiology notes. Has also seen movement disorder specialist as well. Today's office visit was spent reviewing PMH and meds. SUBJECTIVE: MEDICATIONS: Current Outpatient Medications Medication Instructions amLODIPine (NORVASC) 2.5 mg, Oral, Daily RT aspirin (ASPIRIN ADULT LOW STRENGTH) 81 mg, Oral, Daily baclofen (LIORESAL) 20 mg, Oral, 3 times daily clonazePAM (KLONOPIN) 0.5 mg, Oral, 2 times daily ferrous sulfate (FEROSUL) 325 mg, Oral, Daily with breakfast furosemide (LASIX) 20 mg, Oral, Daily, Pt takes 20mg meclizine (ANTIVERT) 25 mg, Oral, 3 times daily PRN metoprolol succinate XL (Toprol-XL) 25 MG 24 hr tablet take 1 tablet by mouth IN THE MORNING DO NOTCRUSH OR CHEW potassium chloride ER (Micro-K) 10 MEQ ER capsule 10 mEq, Oral, Daily QUEtiapine (SEROQUEL) 50 mg, Oral, Nightly rosuvastatin (CRESTOR) 20 mg, Oral, Daily RT topiramate 50 mg, Oral, Daily ALLERGIES: Allergies Allergen Reactions Penicillin G Unknown Penicillins Rash REVIEW OF SYMPTOMS: Review of Systems Constitutional: Positive for fatigue. Negative for appetite change, chills and fever. HENT: Positive for trouble swallowing. Negative for congestion, ear pain and sore throat. Eyes: Positive for visual disturbance. Negative for pain, discharge and redness. Respiratory: Positive for choking. Negative for cough, shortness of breath and wheezing. Cardiovascular: Positive for leg swelling. Negative for chest pain and palpitations. Gastrointestinal: Negative for abdominal pain, blood in stool, constipation, diarrhea, nausea and vomiting. Genitourinary: Positive for difficulty urinating. Negative for dysuria and frequency. Musculoskeletal: Positive for arthralgias. Negative for back pain, joint swelling and myalgias. Skin: Negative for rash and wound. Neurological: Positive for dizziness, weakness and headaches. Negative for tremors, seizures and syncope. Psychiatric/Behavioral: Negative for behavioral problems, self-injury and suicidal ideas. The patient is not nervous/anxious. Hematological: Does not bruise/bleed easily. Endocrine: Negative for polydipsia, polyphagia and polyuria. Allergic/Immunologic: Negative for environmental allergies and food allergies. PAST MEDICAL HISTORY Past Medical History: Diagnosis Date Arthritis Chronic back pain Depression (CMS/HCC) HTN (hypertension) (CMS/HCC) Obesity Past Surgical History: Procedure Laterality Date BARIATRIC SURGERY CATARACT EXTRACTION cataracts CHOLECYSTECTOMY HYSTERECTOMY IR INTERVENTION NEURO THROMBECTOMY 04/05/2018 IR INTERVENTION NEURO THROMBECTOMY 04/05/2018 TOTAL KNEE ARTHROPLASTY Right with loosening of hardware (4 surgeries total) family history includes Cancer in her father and mother; Diabetes in her father; Heart disease in her father; Hypertension in her mother. OBJECTIVE: Visit Vitals BP 100/72 (BP Location: Left arm, Patient Position: Sitting, BP Cuff Size: Adult) Pulse 60 Temp 98.5 F (Temporal) Resp 17 Ht 5' 1 Wt 141 lb SpO2 100% BMI 26.64 kg/m Smoking Status Former BSA 1.66 m Physical Exam Vitals and nursing note reviewed. Constitutional: General: She is not in acute distress. Appearance: Normal appearance. She is ill-appearing (chronically). HENT: Head: Normocephalic and atraumatic. Right Ear: Tympanic membrane, ear canal and external ear normal. Left Ear: Tympanic membrane, ear canal and external ear normal. Nose: Nose normal. No congestion or rhinorrhea. Mouth/Throat: Mouth: Mucous membranes are moist. Pharynx: No oropharyngeal exudate or posterior oropharyngeal erythema. Eyes: Extraocular Movements: Extraocular movements intact. Conjunctiva/sclera: Conjunctivae normal. Pupils: Pupils are equal, round, and reactive to light. Neck: Vascular: Carotid bruit (bruit right carotid) present. Cardiovascular: Rate and Rhythm: Normal rate and regular rhythm. Pulses: Normal pulses. Heart sounds: Normal heart sounds. Pulmonary: Effort: Pulmonary effort is normal. Breath sounds: Normal breath sounds. No wheezing or rales. Abdominal: General: Bowel sounds are normal. There is no distension. Palpations: Abdomen is soft. There is no mass. Tenderness: There is no abdominal tenderness. There is no guarding or rebound. Musculoskeletal: General: Normal range of motion. Cervical back: Normal range of motion and neck supple. Right lower leg: Edema present. Left lower leg: Edema present. Comments: 1+ pretibial bilat Lymphadenopathy: Cervical: No cervical adenopathy. Skin: General: Skin is warm and dry. Capillary Refill: Capillary refill takes 2 to 3 seconds. Findings: No rash. Neurological: General: No focal deficit present. Mental Status: She is alert and oriented to person, place, and time. Motor: Weakness present. Gait: Gait abnormal. Comments: Expressive aphasia Psychiatric: Mood and Affect: Mood normal. Behavior: Behavior normal. Thought Content: Thought content normal. Judgment: Judgment normal. ASSESSMENT AND PLAN: No follow-ups on file. Problem List Items Addressed This Visit Mixed hyperlipidemia ([facility]) Relevant Orders Comprehensive metabolic panel Lipid panel Coronary atherosclerosis ([facility]) Crestor, toprol and ASA Relevant Medications aspirin (Aspirin Adult Low Strength) 81 MG chewable tablet Other Relevant Orders CBC and differential Lipid panel Cerebrovascular accident (CVA) ([facility]) Would like a more local neurologist Relevant Medications aspirin (Aspirin Adult Low Strength) 81 MG chewable tablet Other Relevant Orders CBC and differential Lipid panel Ambulatory referral to Neurology Dysarthria Primary hypertension ([facility]) stable Relevant Medications aspirin (Aspirin Adult Low Strength) 81 MG chewable tablet Other Relevant Orders Comprehensive metabolic panel Urinalysis with reflex microscopic (clean catch) Albumin, urine, random Migraine with aura and without status migrainosus, not intractable ([facility]) Relevant Orders Ambulatory referral to Neurology Dizziness and giddiness Refer to neuro Relevant Orders Ambulatory referral to Neurology Carotid artery stenosis Cont statin, and ASA Impaired mobility and activities of daily living Relevant Orders Ambulatory referral to Neurology Oropharyngeal dysphagia - Primary Cont with speech therapy Will refer to ENT Relevant Orders Ambulatory referral to ENT documented in this encounterDeaconess Incarnate Word Health [id number] Note[facility] Subjective Ozzie Pino Balta is a 73 y.o. year old female patient being seen for 6 mo follow up CAD, hypertension, and LE edema. C/o chest pain 2-3 times a day, but attributes it from her inability to swallow. Patient Active Problem List Diagnosis Carotid artery stenosis Cerebrovascular accident ([facility]) Contusion of knee Coronary atherosclerosis Hypertension Knee joint replacement by other means Osteoarthrosis, unspecified whether generalized or localized, lower leg Reflex sympathetic dystrophy of lower limb Status post placement of implantable loop recorder Tear of medial cartilage or meniscus of knee, current Mixed hyperlipidemia Bradycardia Bilateral lower extremity edema Atypical angina ([facility]) SARAVIA (dyspnea on exertion) JASEN (acute kidney injury) ([facility]) AMS (altered mental status) Anemia Aphasia due to acute stroke ([facility]) Confusion Dysarthria Dysphagia Dystonia H/O traumatic brain injury Headache History of cerebrovascular accident (CVA) with residual deficit Hospital discharge follow-up Impaired mobility and activities of daily living Migraine with aura and without status migrainosus, not intractable Overflow incontinence of urine Recurrent major depressive disorder, in full remission ([facility]) Encounter for prophylactic measures, [...] At visit of 03/05/2022 with nurse practitioner Diana Fonseca, she was complaining of symptoms of chest discomfort that were suggestive of possible angina. Imdur was added. In the past year she was admitted to the [facility] in October 2022 and February 2023 due to TIA symptoms. She and her son tell me that she underwent redo right carotid surgery this year at [facility]. Today she reports that she has [...] no abdominal tenderness. Musculoskeleta (more content not included)...[facility] 08-21-2023 Hospital Discharge instructions Patient Education 08/21/2023 [...] waits for your results from any tests forpossible infection. Tests may include a culture of your throat, urine, blood, or mucus. Your healthcare provider may change or stop your antibiotic [...] antibiotic for as long as told by yourhealth care provider. Do not stop taking it even if you start to feel better. If you stop taking ittoo soon: You may start to feel sick [...] in the future with bacteria that do notrespond to medicine (antibiotic-resistant infection). Antibiotics can cause bacteria to change so that if the antibiotic is taken again, the medicine cannot kill the bacteria. These infections can bemore serious and, in some cases, life-threatening. Do [...] medicine. Follow these instructions at home: Take fjpp-hvz-agmnrxa and prescription medicines as told by your [...] by bacteria. It is important that you takeantibiotic medicines safely and only when needed. Your health care provider may change or stop your antibiotic depending on your results from certaintests. Finish all antibiotic medicine even when you start to feel better. This information is not intended to replace advice given to you by your health care provider. Make sure you discuss any questions you have with your health care provider. Document Revised: 03/14/2020 Document Reviewed: 11/17/2019 [email or web address] Patient Education 2022 [employer]. Follow Up Care 08/20/2023 09:52:06 With:CORRIE EDEN, BERNICE Carias, URL Address: [address] [address] Business (1) When: only if needed [facility] 07-10-2024 NotePatient Education Caregiving Antibiotic Medicine, Adult Antibiotic medicines are used [...] take antibiotics? You may need antibiotics for: ? UTI. ? Strep throat. ? Bacterial sinusitis. ? Meningitis. This infection affects the spinal cord and brain. ? Serious lung infection. You may start antibiotics while your health care provider waits for your results from any tests forpossible infection. Tests may include a culture of your throat, urine, blood, or mucus. Your healthcare provider may change or stop your antibiotic depending on your test results. When are antibiotics not needed? You do not need antibiotics for most common illnesses. These illnesses may be caused by a virus, not by bacteria. You do not need antibiotics for: ? The common cold. ? Influenza. ? Sore throat. ? Discolored mucus. ? Bronchitis. Antibiotics are not always needed for all infections caused by bacteria. Many of these infections clear up without antibiotic treatment. Do not ask for or take antibiotics when they are not necessary. How long should I take my antibiotic? You must take the entire prescription. Continue to take your antibiotic for as long as told by yourhealth care provider. Do not stop taking it even if you start to feel better. If you stop taking ittoo soon: ? You may start to feel sick again. ? Your infection may become harder to treat. [...] risks of taking antibiotics? Antibiotics can cause: ? Allergic reactions. ? Nausea. ? Yeast infections. ? Liver problems. Antibiotics can also cause an infection called Clostridioides difficile (C. difficile or C. diff), which causes severe diarrhea. This infection happens when the antibiotics kill the healthy bacteria in your intestines. This allows C. diff to grow. C. diff needs to be treated right away. Let your health care provider know if: ? You develop diarrhea while taking an antibiotic. ? You develop diarrhea after you stop taking an antibiotic. C. diff infection can start weeks afterstopping the antibiotic. Taking an antibiotic also puts you at risk for getting sick in the future with bacteria that do notrespond to medicine (antibiotic-resistant infection). Antibiotics can cause bacteria to change so that if the antibiotic is taken again, the medicine cannot kill the bacteria. These infections can bemore serious and, in some cases, life-threatening. Do [...] antibiotics exactly as told. Make sure to: ? Take the correct amount of medicine at the same time each day. ? Ask your health care provider: ? How long to wait between doses. ? If your antibiotic should be taken with food. ? If there are any foods, drinks, or medicines that you should avoid while taking your antibiotics. ? If there are any side effects you should be aware of. ? Use only the antibiotics prescribed for you by your health care provider. Do not use antibiotics prescribed for someone else. ? Drink a large glass of water when taking your antibiotics. Drink enough fluid to keep your urine pale yellow. ? Ask your pharmacist for a syringe, cup, or spoon that properly measures your antibiotics. ? Throw away any leftover medicine. Follow these instructions at home: ? Take dtrx-rgf-rgrnjqk and prescription medicines as told by your health care provider. ? Return to your normal activities as told by your health care provider. Ask your health care provider what activities are safe for you. ? Keep all follow-up visits as told by your health care provider. This is important. Contact a health care provider if: ? Your s (more content not included)...[facility]2024 Hospital Discharge instructions Patient Education 07/15/2023 13:39:51 Urinary Tract Infection, Adult Urinary Tract Infection, Adult A urinary tract infection (UTI) is an infection of any part of the urinary tract. The urinary tractincludes the kidneys, ureters, bladder, and urethra. These organs make, store, and get rid of urinein the body. An upper UTI affects the [...] Treatment for this condition includes: Antibiotic medicine. Lbrb-sxp-xebsqcn medicines to treat discomfort. Drinking enough water to stay hydrated. If you have frequent infections or have other conditions such as a kidney stone, you may need to see a health care provider who specializes in the urinary tract (urologist). In rare cases, urinary tract infections can cause sepsis. Sepsis is a life- threatening condition that occurs when the body responds to an infection. Sepsis is treated in the hospital with IV antibiotics, fluids, and other medicines. Follow these instructions at home: Medicines Take ebml-mcp-ltfzyic and prescription medicines only as told by your health care provider. If you were prescribed an antibiotic medicine, take it as told by your health care provider. Do notstop using the antibiotic even if you start [...] told by your health care provider. Do notstop using the antibiotic even if you start to feel better. Keep all follow-up visits. This is important. This information is not intended to replace advice given to you by your health care provider. Make sure you discuss any questions you have with your health care provider. Document Revised: 09/09/2020 Document Reviewed: 09/09/2020 [email or web address] Patient Education 2022 [employer]. 07/15/2023 13:39:50 Urinary Incontinence Urinary Incontinence Urinary incontinence refers to a condition in which a person is unable to control where and when topass urine. A person with this condition will urinate involuntarily. This means that the person urinates when he or she does not mean to. What are the causes? This condition may be caused by: Medicines. Infections. Constipation. Overactive bladder muscles. Weak bladder muscles. Weak pelvic floor muscles. These muscles provide support for the bladder, intestine, and, in women,the uterus. Enlarged prostate in men. The prostate [...] a small amount, or constantly dribbling urine (overflowincontinence). Urinating because you cannot get to the [...] fiber include beans, whole grains, and fresh fruitsand vegetables. Behavioral changes, such as: ?Pelvic floor [...] nerve stimulation). ?For women, using a medical chief technician to prevent urine leaks. This is a small, tampon-like, disposabledevice that is inserted into the urethra. ?Injecting [...] right after experiencing incontinence. General instructions Take zaao-nxg-ajicyyh and prescription medicines only as told by [...] important. Where to find more information [employer] [place] [employer] and [employer]estive [employer] Kidney Diseases: www.niddk.nih.gov [employer]: www.urologyhealth.org Contact a health care [...] is unable to control where and when topass urine. This condition may be caused by medicines, infection, weak bladder muscles, weak pelvic floor muscles, enlargement of the prostate (in men), or surgery. Factors such as older age, obesity, and childbirth, menopause, neurological diseases, andchronic coughing may increase your risk for developing [...] provider. Document Revised: 09/02/2020 Document Reviewed: 09/02/2020 [email or web address] Patient Education 2022 [employer]. Follow Up Care 07/15/2023 10:29:19 With:MITRA Quintero APRN, Carmen Rm, JAYESH, URL Address: When: Unknown Comments:1 yr w/ PVR [facility] 2024 Evaluation + Plan note Diagnostic Tests Pending * Urine Culture 07/15/23 [facility]05-24-2024 Miscellaneous Notes* Telephone Encounter - Adia Bowling CMA - 07/05/2023 2:43 PM EDT PT referral faxed to [facility] 07/02/23. Confirmation received. [facility] Tele[facility] encounter Note* Telephone Encounter - Adia Bowling CMA - 07/05/2023 2:43 PM EDT PT referral faxed to [facility] 07/02/23. Confirmation received. [facility]05-24-2024 Miscellaneous Notes* Telephone Encounter - Beti Danielle - 07/05/2023 10:56 AM EDT Please fax patients last office notes (07/02/2023) To: [facility] Fax #: [phone] Phone #: [phone], option 1 Who is calling: Bessy * Telephone Encounter - Tri Gregory - 07/05/2023 10:56 AM EDT Faxed included information to [phone] on 07/05/23 at 15:30 - 07/02/[address] Espinosa documented in this encounterA[facility] Telephone encounter Note* Telephone Encounter - Beti Danielle - 07/05/2023 10:56 AM EDT Please fax patients last office notes (07/02/2023) To: [facility] Fax #: [phone] Phone #: [phone], option 1 Who is calling: Bessy [facility]05-24-2024 Telephone encounter Note* Telephone Encounter - Tri Gregory - 07/05/2023 10:56 AM EDT Faxed included information to [phone] on 07/05/23 at 15:30 - 07/02/[address] Espinosa [facility]05-21-2024 History of Present illness Narrative* Martin Espinosa MD - 07/02/2023 9:00 AM EDT Images from the original note were not included. [address] [facility] [address] Patient: Ozzie Gifford Date of : 1950 Encounter Date: 07/02/2023 Patient Care Team: Gerry Godwin MD as PCP - General (Family Medicine) History of Present Illness: Ms. Ozzie Gifford is a 73 y.o. year old female who is seen today at the neurology [facility]clinic at [facility] for a new patient visit. The patient has been bothered by dizziness symptoms. The patient describes the dizziness symptoms as a episodic spinning of the room accompanied by dizziness, nausea, light-headedness, and double vision that lasts for a few seconds before returning to a lesser baseline dizziness. Pt describes that during an episode of dizziness, she feels that there is something in her right eye which is associated with tearing. The symptoms started in January 30. She went into the ER for suspected stroke. Acute stroke was ruled out via CT head. Further stroke history described below. The onset of her dizziness episodes were episodic and have become progressively more frequent until the dizziness now is constant with flares of increased severity occurring for 5-10 seconds whenever she moves. Symptoms are exacerbated by head movement and relieved by sitting still. She admits lightheadedness, but denies near fainting or fainting episodes. Pt denies vomiting. She denies significant hearing loss, ringing sensation or other ear symptoms. Regarding balance, she feels very unstable and uses a cane to ambulate inside the house. 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 She lays down around9 pm and is kept up by soreness in her legs. She uses biofreeze for attempted relief. She states that she eventually falls asleep but that it only lasts about 10 minutes at a time. She is woken up bypainful cramps in her legs, but states that it is everything that stops her from sleeping. This continues all night long. She admits a history of headaches. Pt says that she feels a right sided temporal pain everyday thatshe describes as painful when she sleeps in the wrong place , but persists throughout the day and stops her from getting her daily work done. She was unable to characterize this pain. When asked follow up questions about exacerbating/remitting factors, onset, duration, and severity, pt would get lost on her train of thought and swith to explaining another issue. When the headaches are at their worst, pt's says that she seems to be in a daze with prolonged responses. Pt takes meclizine 25 mg twice daily for vertigo with minor resolution of symptoms. Other medications possibly contributing to her dizziness include: Clonipin .5 mg 2 times daily daily for leg pain. 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 No acute infarct. CTA Narrowing of the left side Allergies: Penicillins Review of Relevant Patient Questionnaires: HIT 6: No data to display PHQ-9: 03/20/2023 1:03 PM 08/25/2018 3:00 PM PM AMB PHQ 9 Little interest or pleasure in doing things 0 0 Feeling down, depressed, or hopeless 0 0 Trouble falling or staying asleep, or sleeping too much 2 1 Feeling tired or having little energy 0 1 Poor appetite or overeating 1 0 Feeling bad about yourself - or that you are a failure or have let yourself or your family down 0 0 Trouble concentrating on things, such as reading the newspaper or watching television 2 0 Moving or speaking so slowly that other people could have noticed. Or the opposite - being so fidgety or restless that you have been moving around a lot more than usual 2 0 Thoughts that you would be better off , or of hurting yourself in some way 0 0 Total Score 7 2 If you checked off any problems, how difficult have these problems made it for you to do your work,take care of things at home, or get along with other people? Somewhat difficult Not difficult at all PHQ-15: No data to display CRYSTAL-7: No data to display PTSD: No data to display Verner: No data to display IMAN-10: No data to display Past Medical, Family, Surgical, and Social History Update: The following portions of the patient's history were reviewed and updated as appropriate: allergies, current medications, past family history, past medical history, past social history, past surgicalhistory and problem list. Past Medical History: Diagnosis Date Breast disorder Headache HTN (hypertension) Stroke ([facility]) Family History Problem Relation Age of Onset Brain Tumor Mother Cancer Father Heart attack Brother Past Surgical History: Procedure Laterality Date APPENDECTOMY BARIATRIC SURGERY BREAST MASS EXCISION Patient had milk duct removal and some breast tissue removal CHOLECYSTECTOMY COLONOSCOPY Diagnostic cerebral angiogram N/A 04/05/2018 Performed by Soren Hollingsworth MD at [facility] HYSTERECTOMY REPLACEMENT TOTAL KNEE Stroke Thrombectomy, 04/05/2018 N/A 04/05/2018 Performed by Soren Hollingsworth MD at [facility] TONSILLECTOMY Current Outpatient Medications Medication Sig Dispense Refill aspirin 81 mg Take 1 tablet (81 mg total) by mouth in the morning. baclofen (LIORESAL) 20 mg tablet Take 1 tablet (20 mg total) by mouth 3 (three) times a day Indications: muscle spasms caused by a spinal disease. cetirizine (ZyrTEC) 10 mg tablet Take 1 tablet (10 mg total) by mouth in the morning. clonazePAM (KlonoPIN) 0.5 mg tablet Take 1 tablet (0.5 mg total) by mouth in the morning and 1 tablet (0.5 mg total) before bedtime. clopidogreL (PLAVIX) 75 mg tablet Take 1 tablet (75 mg total) by mouth. ferrous sulfate 325 (65 FE) mg tablet Take 1 tablet (325 mg total) by mouth daily with breakfast Indications: anemia from inadequate iron. furosemide (LASIX) 40 mg tablet Take 1 tablet (40 mg total) by mouth. lisinopril-hydroCHLOROthiazide (PRINZIDE,ZESTORETIC) 10-12.5 mg per tablet Take 1 tablet by mouth in the morning. meclizine (ANTIVERT) 25 mg tablet Take 1 tablet (25 mg total) by mouth Three times daily as needed. metoprolol succinate XL (TOPROL-XL) 25 mg 24 hr tablet Take 1 tablet (25 mg total) by mouth in the morning. potassium chloride (KLOR-CON M 10) 10 MEQ CR tablet Take 1 tablet (10 mEq total) by mouth. hydroCHLOROthiazide (MICROZIDE) 12.5 mg capsule Take 1 capsule (12.5 mg total) by mouth daily. (Patient not taking: Reported on 07/02/2023) rosuvastatin (CRESTOR) 10 mg tablet Take 1 tablet (10 mg total) by mouth in the morning. (Patient not taking: Reported on 07/02/2023) traZODone (DESYREL) 100 mg tablet Take 1.5 tablets (150 mg total) by mouth nightly as needed for sleep. (Patient not taking: Reported on 07/02/2023) No current facility-administered medications for this visit. (All medications reviewed and updated by provider since last office visit or hospitalization) Tobacco History: Social History Tobacco Use Smoking Status Former Current packs/day: 1.00 Types: Cigarettes Smokeless Tobacco Never (If patient a smoker, smoking cessation counseling offered) Social History: Social History Substance and Sexual Activity Alcohol Use No Review of Systems: Review of Systems Constitutional: Negative for activity change, appetite change, chills, fatigue, fever and unexpected weight change. HENT: Negative for drooling, hearing loss, rhinorrhea, tinnitus, trouble swallowing and voice change. Eyes: Negative for visual disturbance. Respiratory: Negative for cough and shortness of breath. Cardiovascular: Negative for chest pain, palpitations and leg swelling. Gastrointestinal: Negative for abdominal pain, constipation, diarrhea, nausea and vomiting. Endocrine: Negative for cold intolerance. Genitourinary: Negative for frequency. Musculoskeletal: Negative for arthralgias, back pain, myalgias and neck pain. Skin: Negative for rash. Neurological: Positive for dizziness. Negative for tremors, seizures, syncope, weakness, light-headedness, numbness and headaches. Loss of balance Hematological: Does not bruise/bleed easily. Psychiatric/Behavioral: Negative for behavioral problems, confusion, decreased concentration, dysphoric mood, hallucinations and sleep disturbance. The patient is not nervous/anxious. Physical Exam: Vitals: Vitals: 07/02/23 0853 BP: 150/64 BP Site: Left Arm BP Postition: Sitting BP CUFF SIZE: M (9-13 inches) Pulse: 56 Weight: 62.4 kg (137 lb 8 oz) Height: 152.4 cm (5') Neurological Physical Exam: Physical Exam: Mental Status: Orientation: Oriented. Level of consciousness: alert. Knowledge: good. Vocabulary is normal. Memory: Repeats 2 of 3 objects. Attention span is normal. Concentration is normal. Attention span and concentration: Frequent episodes of dizziness impair ability to concentrate and hold a continuous line of thought. Speech: Normal quality. Language: Normal. Cranial Nerves: CN II: Visual hadley full to confrontation. CN III, IV, : CN III: EOM full and no nystagmus. CN V: Facial sensation intact to pin. CN VII: Facial expression fully symmetric. CN VIII: Hearing impaired. Intact to finger rubbing on right and left. Right sided hearing slightlydecreased. CN IX, X: CN IX and X normal. CN XI: CN XI normal. CN XII: CN XII normal. Motor: Muscle Bulk: Normal. Muscle Strength: Right hip flexors: 4/5 Left hip flexors: 4/5 Right hip extensors: 4/5 Left hip extensors: 4/5 Right thigh adductors: 4/5 Left thigh adductors: 4/5 Right thigh abductors: 4/5 Left thigh abductors: 4/5 Right knee extensors: 4/5 Left knee extensors: 4/5 Right knee flexors: 4/5 Left knee flexors: 4/5 Right foot dorsiflexors: 4/5 Left foot dorsiflexors: 4/5 Right foot plantar flexors: 4/5 Left foot plantar flexors: 4/5 Right upper extremity strength 5/5 Left upper extremity strength 5/5 Fasciculations: No Sensory: Light touch normal in upper and lower extremities. Proprioception: Right arm decreased at fingers. Left arm normal. Gait/Coord/DTR: Abnormal Gait: unsteady, antalgic and abnormal gait (Pt sways side to side without falling or side stepping. Pt extremely shaky and unsteady). Unable to tandem walk, unable to heel walk on right, unable to heel walk on left, and . Gait: Swaying to the right. Coordination: Balance is poor. Finger to nose abnormal on right. Impaired right sided rapid repetitive hand movements . Tremor: Positive Findings: dysdiadochokinesia on right and dysdiadochokinesia on left. Bilateral distractible tremors of right and left arm. Entrainable tremor of the right leg Distractible tremor of the left leg. Reflexes: Right brachioradialis 0 Left brachioradialis 0 Right biceps 0 Left biceps 0 Right triceps 0 Left triceps 0 Right patellar 0 Left patellar 0 Right achilles 0 Left achilles 0 MDS-UPDRS: @FLOW([id number],2102 80393,[id number],2102 84039,[id number],2102 56219,[id number],2102 27086,[id number],[id number],2102 84868,[id number],2102 86948,[id number],[id number],[id number],2102 35341,[id number])@ TETRAS: @FLOW([id number],05818,23307,40646,47604,89442,52613,77315,26811,14372,41587,15 710,99611,53585,1572 4,16880,65851,54752,56769,95725,44227,40073,34804,27529,43793,21705,96456,12022, 26316,75197,62790,15 797,55416,18006,03245,36673,28102,74957,07005,04327,24154,64735,41796,10295,1581 5,45558,01328)@ Assessment and Plan: Ozzie Gifford is a 73 year old female presenting for symptoms of constant and frequent episodicdizziness , but also suspected to have a Functional Neurologic Disorder. Pt also has constant rightsided head pain. Pt's sleep is severely interrupted and impaired due to leg soreness being awoken every 10 minutes on average. Plan: For Functional Neurologic Disorder we recommend patients follow up with PCP to pursue therapy such as CBT and EMDR. Review Medications with PCP to treat possibilty of dizziness and headaches due to polypharmacy 2. Referral to PT for strengthening exercises to improve gait. 3. Referral for Sleep Specialist to address sleep deficits 4. Headaches may resolve as sleep and other disorders are addressed Problem List None Follow-up: 6 months Swapnil Morales [address] I, MARTIN ESPINOSA MD, was physically present with the participating medical student. I personally verified the medical student's documentation in the medical record and performed a physical exam andmedical decision making for the patient. I made appropriate changes or clarifications to the note. MARTIN ESPINOSA MD This note was created with the assistance of a speech recognition program. While intending to generate a timely document that accurately reflects the content of the visit, no guarantee can be provided that every grammatical or spelling mistake has been or will be identified or corrected. Thank you for your understanding. documented in this [facility]04-24-2024 Miscellaneous Notes* Telephone Encounter - Tri Gregory - 06/05/2023 2:58 PM EDT RN from Dr Day's office called to state Dr Day spoke with Dr Espinosa, stating patient should be seen in clinic sooner due to worsening symptoms. Patient and clinical staff at Dr Day's office were informed clinical staff from Dr Espinosa's office would contact patient to schedule sooner appointment but patient has yet to hear from our office. Please advise. * Telephone Encounter - Martin Espinosa MD - 06/05/2023 2:58 PM EDT We can try to add on June 11, at 12:00 p.m.. * Telephone Encounter - Britney Banks CMA - 06/05/2023 2:58 PM EDT Called pt to schedule a sooner appt, pt did not answer. [employer] left a brief message stating for a call back. documented in this [facility]04-24-2024 Telephone encounter Note* Telephone Encounter - Tri Gregory - 06/05/2023 2:58 PM EDT RN from Dr Day's office called to state Dr Day spoke with Dr Espinosa, stating patient should be seen in clinic sooner due to worsening symptoms. Patient and clinical staff at Dr Day's office were informed clinical staff from Dr Espinosa's office would contact patient to schedule sooner appointment but patient has yet to hear from our office. Please advise. [facility] Telephone encounter Note* Telephone Encounter - Martin Espinosa MD - 06/05/2023 2:58 PM EDT We can try to add on June 11, at 12:[address] [facility] Work Phone: [phone] 647-368504-24-2024 Telephone encounter Note* Telephone Encounter - Britney Banks CMA - 06/05/2023 2:58 PM EDT Called pt to schedule a sooner appt, pt did not answer. [employer] left a brief message stating for a call back. [id number] Miscellaneous Notes* Telephone Encounter - Re Becerra - 04/10/2023 11:48 AM EST Received a call from patient's PCP office regarding appointment that's scheduled on 07/02/23 at 9:00a with Dr. Espinosa. Their office stated patient was suppose to be scheduled within 3 weeks from seeing last provider Dr. Haddad, [employer] did review office note and nothing was stated that patient neededa [address] Espinosa. Patient was scheduled at next available time for provider. Nofurther questions at this time. documented in this encounterA[facility]02-28-[facility] Telephone encounter Note* Telephone Encounter - Re Becerra - 04/10/2023 11:48 AM EST Received a call from patient's PCP office regarding appointment that's scheduled on 07/02/23 at 9:00a with Dr. Espinosa. Their office stated patient was suppose to be scheduled within 3 weeks from seeing last provider Dr. Haddad, [employer] did review office note and nothing was stated that patient neededa [address] Espinosa. Patient was scheduled at next available time for provider. Nofurther questions at this time. [facility]02-15-2024 Miscellaneous Notes* Telephone Encounter - Марина Whiting - 03/28/2023 2:16 PM EST First Attempt Made from [employer]- Left Voicemail New patient referral received. Dx:Dizzy [[id number]]/ Referred by:Rabia Dubose PA-C Referred to: Providers patient can see in clinic: Please contact patient to schedule from referral, Thanks! PLEASE REVIEW PLAN OVER THE PHONE AND ADVISE PATIENT TO BRING UPDATED INSURANCE INFORMATION TO THEIR NEW PATIENT APPOINTMENT * Telephone Encounter - Viktoriya Myles - 03/28/2023 2:16 PM EST Patient is scheduled for the following appointment: 07/02/2023 09:00 - MARTIN ESPINOSA MD New patient Dizzy [[id number]] Referring provider: Rabia Dubose PA-C i Referred to Dr. Espinosa *Insurance verified: E-ANTHEM MEDICARE/ANTHEM MEDICARE ADVANTAGE* NOT A WORKMANS COMP CASE New patient paperwork mailed 03/29/2023 - MMV documented in this encounterA[facility]02-15-2024 Telephone encounter Note* Telephone Encounter - Марина Whiting - 03/28/2023 2:16 PM EST First Attempt Made from [employer]- Left Voicemail New patient referral received. Dx:Dizzy [[id number]]/ Referred by:Rabia Dubose PA-C Referred to: Providers patient can see in clinic: Please contact patient to schedule from referral, Thanks! PLEASE REVIEW PLAN OVER THE PHONE AND ADVISE PATIENT TO BRING UPDATED INSURANCE INFORMATION TO THEIR NEW PATIENT APPOINTMENT [employer]02-15-2024 Telephone encounter Note* Telephone Encounter - Viktoriya Myles - 03/28/2023 2:16 PM EST Patient is scheduled for the following appointment: 07/02/2023 09:00 - MARTIN ESPINOSA MD New patient Dizzy [[id number]] Referring provider: Rabia Dubose PA-C i Referred to Dr. Espinosa *Insurance verified: E-ANTHEM MEDICARE/ANTHEM MEDICARE ADVANTAGE* NOT A WORKMANS COMP CASE New patient paperwork mailed 03/29/2023 - MMV [employer]02-07-2024 History of Present illness Narrative* Duncan Haddad MD - 03/20/2023 1:00 PM EST Reason for visit: dizziness HPI: Ozzie Gifford is a 72 y.o. 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 She was seen at [facility] ER for of speech disturbance and [...] mental status, depression and memory loss. The patientdoes not have insomnia and is not nervous/anxious. Past Medical History Past Medical History: Diagnosis Date Breast disorder Headache HTN (hypertension) Stroke ([facility]) Past Surgical History Past Surgical History: Procedure Laterality Date APPENDECTOMY BARIATRIC SURGERY BREAST MASS EXCISION Patient had milk duct removal and some breast tissue removal CHOLECYSTECTOMY COLONOSCOPY Diagnostic cerebral angiogram N/A 04/05/2018 Performed by Soren Hollingsworth MD at [facility]ATH [facility]S HYSTERECTOMY REPLACEMENT TOTAL KNEE Stroke Thrombectomy, 04/05/2018 N/A 04/05/2018 Performed by Soren Hollingsworth MD at [facility]ATH [facility] TONSILLECTOMY Family History The [...] tablet (25 mg total) by mouth in themorning., Disp: , Rfl: rosuvastatin (CRESTOR) 10 mg [...] CUFF SIZE: M (9-13 inches)) Pulse 67 Ht152.4 cm (5') Wt 62.6 kg (138 lb) [...] in the note above. documented in this encounterProctor HospitalSymptom.ly02-07-2024 Instructions* Patient Instructions* Rabia Dubose PA-C - 03/20/2023 1:00 PM EST Continue aspirin and statin Follow up with dizziness specialist We will discuss with you following appointment with Dr. Espinosa documented in this encounterRegency Hospital [facility] WestTrust Mico [id number] Hospital Discharge instructions Patient Education 03/07/2023 14:30:33 Urinary Incontinence Urinary Incontinence Urinary incontinence refers to a condition in which a person is unable to control where and when topass urine. A person with this condition will urinate involuntarily. This means that the person urinates when he or she does not mean to. What are the causes? This condition may be caused by: Medicines. Infections. Constipation. Overactive bladder muscles. Weak bladder muscles. Weak pelvic floor muscles. These muscles provide support for the bladder, intestine, and, in women,the uterus. Enlarged prostate in men. The prostate [...] a small amount, or constantly dribbling urine (overflowincontinence). Urinating because you cannot get to the [...] fiber include beans, whole grains, and fresh fruitsand vegetables. Behavioral changes, such as: ?Pelvic floor [...] nerve stimulation). ?For women, using a medical chief technician to prevent urine leaks. This is a small, tampon-like, disposabledevice that is inserted into the urethra. ?Injecting [...] right after experiencing incontinence. General instructions Take walf-srm-xdgfvkv and prescription medicines only as told by [...] important. Where to find more information National [place] of Diabetes and Digestive and Kidney Diseases: www.niddk.nih.gov [employer]: www.urologyhealth.org Contact a health care [...] is unable to control where and when topass urine. This condition may be caused by medicines, infection, weak bladder muscles, weak pelvic floor muscles, enlargement of the prostate (in men), or surgery. Factors such as older age, obesity, and childbirth, menopause, neurological diseases, andchronic coughing may increase your risk for developing [...] provider. Document Revised: 09/02/2020 Document Reviewed: 09/02/2020 [email or web address] Patient Education 2022 [employer]. Follow Up Care 02/21/2023 11:58:10 With:MITRA Quintero APRN, JAYESH Whaley, URL Address: When:Within 8 Week(s) Comments:w/ pvr [facility] 01-22-2024 Miscellaneous Notes* Telephone Encounter - Joie Leyva RN - 03/04/2023 10:13 AM EST ----- Message from Sara Ozuna PA-C sent at 03/02/2023 3:07 PM EST ----- Regarding: [facility] follow up Patient has appt with Dr. Elmore on 03/12, she was just seen at [facility] via telestroke on 03/02. Dr. Haddad would like her put in his neurointervention clinic so please move the appointment. [facility] abnormal vessel imaging in the right brachiocephalic and left ICA, MRI was negative for acute stroke. Please get imaging and reports from [place] prior to her appointment. * Telephone Encounter - Ginna Pak CMA - 03/04/2023 10:13 AM EST Faxed imaging request to [facility]. Currently waiting for response. * Telephone Encounter - Selin Peterson - 03/04/2023 10:13 AM EST Called patient and left VM * Telephone Encounter - Angie Sosa - 03/04/2023 10:13 AM EST Patient called and confirmed appointment. Patient will be here on 03/12/2023 at 9:30am * Telephone Encounter - Ginna Pak CMA - 03/04/2023 10:13 AM EST Radiology report was received and uploaded to [employer] Confirmed on [employer] that images are also in. Please advise. * Telephone Encounter - Ginna Pak CMA - 03/04/2023 10:13 AM EST Called pt to reschedule her appointment with Dr. Ramírez Haddad. She expressed frustration for trying reschedule last minute when her took off work for tomorrow's appointment. Suggested video visit for next week, but she insists on seeing regular doctor and she must see one in person . [employer] explained what video visits are, and patient states she is aware of what it is but she does notwant it. Pt was also upset that the earliest available for Dr. Haddad is 03/20/23 at 3:00 PM because she willdriving back in the dark. Pt does not want anything later than 1:30 PM. Tried to reach out to [employer] handbook writer could squeeze her in, but could not receive an answer on time. If it is not possible, handbook writer will call to reschedule. Please advise. * Telephone Encounter - Joie Leyva RN - 03/04/2023 10:13 AM EST Okay as scheduled documented in this encounterAultman [facility]01-22-2024 Telephone encounter Note* Telephone Encounter - Joie Leyva RN - 03/04/2023 10:13 AM EST ----- Message from Sara Ozuna PA-C sent at 03/02/2023 3:07 PM EST ----- Regarding: [facility] follow up Patient has appt with Dr. Elmore on 03/12, she was just seen at [facility] via telestroke on 03/02. Dr. Haddad would like her put in his neurointervention clinic so please move the appointment. [facility] abnormal vessel imaging in the right brachiocephalic and left ICA, MRI was negative for acute stroke. Please get imaging and reports from [place] prior to her appointment. [employer]01-22-2024 Telephone encounter Note* Telephone Encounter - Ginna Pak CMA - 03/04/2023 10:13 AM EST Faxed imaging request to [facility]. Currently waiting for response. [employer]01-22-2024 Telephone encounter Note* Telephone Encounter - Selin Peterson - 03/04/2023 10:13 AM EST Called patient and left VM [employer]01-22-2024 Telephone encounter Note* Telephone Encounter - Angie Sosa - 03/04/2023 10:13 AM EST Patient called and confirmed appointment. Patient will be here on 03/12/2023 at 9:30am [employer]01-22-2024 Telephone encounter Note* Telephone Encounter - Ginna Pak CMA - 03/04/2023 10:13 AM EST Radiology report was received and uploaded to [employer] Confirmed on [facility] that images are also in. Please advise. [employer]01-22-2024 Telephone encounter Note* Telephone Encounter - Ginna Pak CMA - 03/04/2023 10:13 AM EST Called pt to reschedule her appointment with Dr. Ramírez Haddad. She expressed frustration for trying reschedule last minute when her took off work for tomorrow's appointment. Suggested video visit for next week, but she insists on seeing regular doctor and she must see one in person . [employer] D[employer] explained what video visits are, and patient states she is aware of what it is but she does notwant it. Pt was also upset that the earliest available for Dr. Haddad is 03/20/23 at 3:00 PM because she willdriving back in the dark. Pt does not want anything later than 1:30 PM. Tried to reach out to [employer] handbook writer could squeeze her in, but could not receive an answer on time. If it is not possible, handbook writer will call to reschedule. Please advise. [employer]01-22-2024 Telephone encounter Note* Telephone Encounter - Joie Leyva RN - 03/04/2023 10:13 AM EST Okay as scheduled [employer]12-14-2023 Miscellaneous Notes* Telephone Encounter - Charlette Burr - 01/24/2023 12:46 PM EST Patient called to see if we received paperwork that was sent from her PCP in July. Caller states she has had a new stroke and needs to be seen. Patient states she has been having headaches and dizziness. Please advise [phone] * Telephone Encounter - Joie Leyva RN - 01/24/2023 12:46 PM EST Patient last seen in 2019. No paperwork has been completed or received. Please see where patient had recent stroke and gather records. * Telephone Encounter - Ginna Pak CMA - 01/24/2023 12:46 PM EST Called pt. She state Dr. Godwin sent the paperwork back in November 2022. MRI was done at [place] very recently. [employer] will be requesting image and any office visit notes related to neurology. Pt seems to be very frustrated by the lack of communication. [employer]iver informed that we will reach out to [place] to gather as much information. [employer]iver must note that the quality of the call was very poor and it was hard to communicate with thepatient. Asked if she could move to somewhere with a better office systems technology instructor, but even then the quality did not improve. At the end of the call, she showed more frustration which handbook writer could not understandand she hung up. * Telephone Encounter - Ginna Pak CMA - 01/24/2023 12:46 PM EST Called [facility] radiology to confirm if she has gotten any MRI in November. It was ordered by one of the hospitalists. A packaging technician could not confirm who ordered the imaging, but confirmed that she pushed over the imaging through PACs and reports via fax. Currently waiting for response. * Telephone Encounter - Ginna Pak CMA - 01/24/2023 12:46 PM EST Faxed request for hospitalization records on nov 2022. Currently waiting for response. * Telephone Encounter - Ginna Pak CMA - 01/24/2023 12:46 PM EST Called and scheduled an appointment on 03/12/23 at 10:00 AM documented in this encounterRegency Hospital Cleveland WestDefinicare [facility] Shelby [id number] Telephone encounter Note* Telephone Encounter - Charlette Burr - 01/24/2023 12:46 PM EST Patient called to see if we received paperwork that was sent from her PCP in July. Caller states she has had a new stroke and needs to be seen. Patient states she has been having headaches and dizziness. Please advise [phone] [employer] [id number] Telephone encounter Note* Telephone Encounter - Joie Leyva RN - 01/24/2023 12:46 PM EST Patient last seen in 2019. No paperwork has been completed or received. Please see where patient had recent stroke and gather records. [facility] barbourMovellas [id number] Telephone encounter Note* Telephone Encounter - Ginna Pak CMA - 01/24/2023 12:46 PM EST Called pt. She state Dr. Godwin sent the paperwork back in November 2022. MRI was done at [place] very recently. [employer]iver will be requesting image and any office visit notes related to neurology. Pt seems to be very frustrated by the lack of communication. [employer]iver informed that we will reach out to [place] to gather as much information. [employer] Diver must note that the quality of the call was very poor and it was hard to communicate with thepatient. Asked if she could move to somewhere with a better office systems technology instructor, but even then the quality did not improve. At the end of the call, she showed more frustration which handbook writer could not understandand she hung up. [facility]12-14-2023 Telephone encounter Note* Telephone Encounter - Ginna Pak CMA - 01/24/2023 12:46 PM EST Called [facility] radiology to confirm if she has gotten any MRI in November. It was ordered by one of the hospitalists. A packaging technician could not confirm who ordered the imaging, but confirmed that she pushed over the imaging through PACs and reports via fax. Currently waiting for response. [employer]12-14-2023 Telephone encounter Note* Telephone Encounter - Ginna Pak CMA - 01/24/2023 12:46 PM EST Faxed request for hospitalization records on nov 2022. Currently waiting for response. [facility] CenterThree [id number] Telephone encounter Note* Telephone Encounter - Ginna Pak CMA - 01/24/2023 12:46 PM EST Called and scheduled an appointment on 03/12/23 at 10:00 AM [employer]09-05-2023 Evaluation note* Encounter Date Diagnosis Assessment Notes Treatment Notes Treatment Clinical Notes Oct, Dysuria (ICD-10 - R30.0) UA [...] with chronic urinary symptoms. Patient verbalized understanding. [employer] Other 02-22-2023 Evaluation note* Encounter Date Diagnosis [...] 1 year with repeat studies for surveillance. [employer] [facility] Other 10-18-2022 NoteED Procedure Charges Entered On: 11/28/2021 17:45 EDT Performed On: 11/28/2021 17:44 EDT by Heena Crawfordshungnak ([id number]) Sim Rep Sca to 2.5 [id number] : 1 Heena Crawford - 11/28/2021 17:44 [facility]10-14-2022 NoteED Nursing Discharge Summary Entered On: 11/24/2021 17:29 EDT Performed On: 11/24/2021 17:29 EDT by Jennifer Mccarthy RN [place] Information [id number] ED IV's : No IV ED IV Site Assessment : No IV ED Vitals Completed : Yes ED Final Assessment Completed : Yes ED Progress Note Completed : Yes Complete all PRN/Pain response forms? : Yes ED Disassociate Patient from Monitor : N/A Updated Depart Time : Yes ED Belongings sent w patient [id number] : Not applicable Jennifer Mccarthy RN - [...] Mccarthy RN - 11/24/2021 17:29 EDT [facility]10-14-2022 NotePROCEDURE: CT CHEST WITHOUT IV CONTRAST HISTORY: WHAT SYMPTOMS ARE YOU EXPERIENCING? - PT FELL AND HIT HEAD, PAIN, HX OF STROKE 2019, SOB, CHEST PAIN PAIN COMPARISON: None TECHNIQUE: Multiple contiguous axial CT images of the chest were obtained without the administration of intravenous contrast. Sagittal and coronal reconstructions were performed. All CT scans at [facility] use dose modulation, iterative reconstruction, and/or [...] in diameter. See below for follow-up recommendations. [facility] MANDATED QUALITY DATA - FOLLOW-UP IMAGING [...] By: ISMAEL AGUILAR MD Signed Out: 11/24/21 14:28:17[facility]10-12-2022 Consult note Author Shavon Leos [facility] October 12th, 2022 11:54am Note Date/Time November 22, 2021 1 1:45am [facility] EN[facility] [address] [place] [address] Cardiology Consult Note Signed Patient: Ozzie Gifford MR#: [id number] : 1950 Acct:[id number] Age/Sex: 71 / F Adm Date: 2 Loc: Room: [address] [place] [address] Type: ADM IN Attending Dr: Anna Valladares [...] past she underwent work-up by cardiology in [place]. She did undergo an implantable loop recorder [...] of appendectomy History of cardiac catheterization [address] [facility] History of knee replacement right [...] x10E3/uL Lymph # (Auto) 1.2 (1.00-4.8) x10E3/uL [place] # (Auto) 0.4 (0.0-0.8) x10E3/uL Eos # [...] ,000 ml @ 100 mls/hr IV .Q10H [facility] Rx#:[id number] Oral 250 / 500 450 / 450 [...] implantable loop recorder had seen cardiology in [place] Code(s): R00.1 - Bradycardia, unspecified (2) AMS [...] continue his long-term follow-up with his primary physical therapy attendant in [place] Documented By: Shavon Leos MD 11/22/21 1143 Signed By: <Electronically signed by MD Shavon Leos> 11/22/21 1154 [facility] Work Phone: 1(338) 878-754810-12-2022 Progress note Author Anna Valladares [facility] November 22, 2021 8:17am Note Date/Time November 21, 2021 1 2:10pm [facility] [address] [place] [address] Hospitalist Progress Note Signed Patient: Ozzie Gifford MR#: [id number] : 1950 Acct:[id number] Age/Sex: 71 / F Adm Date: 2 Loc: 3T Room: [address] [place] [address] Type: ADM IN Attending Dr: Anna Valladares MD Copies to: ~ Date of Service: 11/21/2021 Subjective Subjective Narrative: Patient seen and examined. josias, currently still roomed in down in ER awaiting nursing floor availability. She offers no complaint. Keeps talkingof her daughter in [place] dying from cancer currently. thinks this is [...] 2 1210 Signed By: <Electronically signed by ANGELA Rodriguez> 11/21/21 1424 <Electronically signed by Anna Valladares MD> 11/22/21 0817 [facility] Work Phone: [phone]) 404-888510-11-2022 History and physical note Author Ashleigh Rashid [facility] November 21, 2021 6:39am Note Date/Time November 21, 2021 6 :39am [facility] [address] [place] [address] Hospitalist H&P Signed Patient: Ozzie Gifford MR#: [id number] : 1950 Acct:[id number] Age/Sex: 71 / F Adm Date: 2 Loc: ER Room: Type: [facility] ER Attending Dr: Copies to: MD [...] of appendectomy History of cardiac catheterization [address] [facility] History of knee replacement right [...] % (Auto) 20.4 % (.) 11/21/21 04:12 [place] % (Auto) 9.9 % (.) 11/21/21 04:12 Eos % (Auto) 3.7 % (.) 11/21/21 04:12 Baso % (Auto) 0.8 % (.) 11/21/21 04:12 Neut # (Auto) 3.5 x10E3/uL (1.8-7.7) 11/21/21 04:12 Lymph # (Auto) 1.1 x10E3/uL (1.00-4.8) 11/21/21 04:12 [place] # (Auto) 0.5 x10E3/uL (0.0-0.8) 11/21/21 04:12 [...] pH 5.5 (5.0-9.0) 11/21/21 04:20 Ur Specific [place] 1.010 (1.001-1.030) 11/21/21 04:20 Urine Protein Negative [...] Lovenox Documented By: Ashleigh Cruz MD 2 3203 Signed By: <Electronically signed by Ashleigh Cruz MD> 11/21/21 0639 [facility] Work Phone: 1(779) 671-834010-11-2022 History and physical note Author Ashleigh Rashid [facility] November 21, 2021 6:39am Note Date/Time November 21, 2021 6 :39am [facility] [address] [place], [place] [id number] Hospitalist H&P Signed Patient: Ozzie Gifford MR#: [id number] : 1950 Acct:[id number] Age/Sex: 71 / F Adm Date: 2 Loc: ER Room: Type: [facility] ER Attending Dr: Copies to: MD [...] of appendectomy History of cardiac catheterization [address] [facility] History of knee replacement right [...] % (Auto) 20.4 % (.) 11/21/21 04:12 [place] % (Auto) 9.9 % (.) 11/21/21 04:12 Eos % (Auto) 3.7 % (.) 11/21/21 04:12 Baso % (Auto) 0.8 % (.) 11/21/21 04:12 Neut # (Auto) 3.5 x10E3/uL (1.8-7.7) 11/21/21 04:12 Lymph # (Auto) 1.1 x10E3/uL (1.00-4.8) 11/21/21 04:12 [place] # (Auto) 0.5 x10E3/uL (0.0-0.8) 11/21/21 04:12 [...] pH 5.5 (5.0-9.0) 11/21/21 04:20 Ur Specific [place] 1.010 (1.001-1.030) 11/21/21 04:20 Urine Protein Negative [...] signed by Ashleigh Cruz MD> 11/21/21 0639 [facility] Work Phone: 1(899) 847-600508-17-2022 Evaluation note* Encounter Date Diagnosis Assessment Notes [...] studies. All of her questions were addressed. [facility] Other 08-12-2022 Evaluation note* Encounter Date Diagnosis [...] Advised that patient may continue to use wzav-awc-[id number] medications as needed for supportive treatment. Discussed that it could be possible that her nausea/vomiting/diar debbi could still be some residual side effects from the Paxlovid medication. At this time she should not take anymore that. She may follow-up with family doctor as scheduled on Saturday if she has more concerns. [facility] Other 08-10-2022 Evaluation note* Encounter Date Diagnosis [...] new questions or concerns at this time. [facility] Other 06-22-2022 Evaluation note* Encounter Date Diagnosis [...] Other specified postprocedural states (ICD-10 - Z98.890) [facility] Other 06-01-2022 Evaluation note* Encounter Date Diagnosis [...] Other specified postprocedural states (ICD-10 - Z98.890) [facility] Other 04-20-2022 Evaluation note* Encounter Date Diagnosis [...] Progress activity as tolerated. Call with questions/concerns. [facility] Other 03-23-2022 Evaluation note* Encounter Date Diagnosis Assessment Notes Treatment Notes Treatment Clinical Notes Apr, Other specified postprocedural states (ICD-10 - Z98.890) Radiographs reviewed with patient. Patient is progressing well from surgery. Continue occupational therapy exercises. Call with questions/concerns . Apr, Other fractures of lower end of left radius, subsequent encounter for closed fracture with routine healing (ICD-10 - S52.592D) [facility] Other 01-20-2022 Evaluation note* Encounter Date Diagnosis [...] or reaches 80% or she develops symptoms [facility] Other 10-21-2021 Evaluation note* Encounter Date Diagnosis [...] suggested ice and elevation with compression stockings. [facility] Other 09-30-2021 Evaluation note* Encounter Date Diagnosis [...] classify this is asymptomatic recurrent stenoses currently. [facility] Other Evaluation + Plan note No data available for this section [facility] Evaluation + Plan note Future Appointments Appointment Date:04/01/2024 08:40:00 AM Scheduled Provider:BERNICE CLEMENTE PA-C Location:[facility] Appointment Type:URO Office Visit [facility] evaluation + Plan note Future Appointments Appointment Date:04/01/2024 08:40:00 AM Scheduled Provider:BERNICE CLEMENTE PA-C Location:[facility] Appointment Type:URO Office Visit Diagnostic Tests Pending * Urine Culture 02/20/24 [facility] evaluation + Plan note Future Appointments Appointment Date:04/22/2024 11:20:00 AM Scheduled Provider:BERNICE CLEMENTE PA-C Location:[facility] Appointment Type:URO Office Visit Diagnostic Tests Pending * Urine Culture 04/01/24 [facility] evaluation + Plan note Future Appointments Appointment Date:04/22/2024 11:20:00 AM Scheduled Provider:BERNICE CLEMENTE PA-C Location:[facility] Appointment Type:URO Office Visit [facility] evaluation + Plan note Future Appointments Appointment Date:08/05/2024 03:00:00 PM Scheduled Provider:BERNICE CLEMENTE PA-C Location:[facility] Appointment Type:URO Office Visit [facility] evaluation + Plan note Future Appointments Appointment Date:08/05/2024 03:00:00 PM Scheduled Provider:BERNICE CLEMENTE PA-C Location:[facility] Appointment Type:URO Office Visit Diagnostic Tests Pending * Urine Culture 06/30/24 [facility] evaluation + Plan note Future Appointments Appointment Date:08/17/2024 09:00:00 AM Scheduled Provider: Location:[facility] Appointment Type:Urology CALL PAT FT Appointment Date:08/18/2024 09:00:00 AM Scheduled Provider: Location:[facility] Appointment Type:Urology FT [facility] evaluation noteNo assessment information available [facility] Work Phone: evaluation noteNo InformationNort [employer] Other Evaluhisqf note* Diagnosis Onset Date Resolution Status JASEN (acute kidney injury) ac asa[place] AMS (altered mental status) acute Impaired mobility and activities of daily living acute Symptomatic bradycardia acut e [facility] Work Phone: evaluation note* Diagnosis Onset Date Resolution Status JASEN (acute kidney injury) ac asa'[place] AMS (altered mental status) acute Impaired mobility and activities of daily living acute Symptomatic bradycardia acut e H/O traumatic brain injury c hronic HLD (hyperlipidemia) chronic HTN, goal below 140/90 chron ic [facility] Work Phone: Evaluation note* Diagnosis Anxiety and depression (CMS/HCC)- Primary [facility] encounter [facility] Diagnosis Onset Date Resolution Status Carotid stenosis acute Carotid stenosis acute [facility] Work Phone: evaluation note* Diagnosis Onset Date Resolution Status Carotid stenosis acute Carotid stenosis acute UTI (urinary tract infection) noneactive Contact with or exposure to viral disease noneactive [facility] Work Phone: Evaluation note* Diagnosis Onset Date Resolution Status UTI (urinary tract infection) noneactive Contact with or exposure to viral disease noneactive [facility] Work Phone: Evaluation note* Diagnosis Onset Date Resolution Status UTI (urinary tract infection) noneactive Contact with or exposure to viral disease noneactive Internal carotid artery stent present acute [facility] Work Phone: Evaluation note* Diagnosis Urinary tract infection symptoms- Primary documented in this encounter [facility]* Diagnosis URTI (acute upper respiratory infection)- Primary Acute upper respiratory infections of unspecified site Overflow incontinence of urine Overflow incontinence Dizziness and giddiness- Primary Peripheral vertigo involving left ear Stenosis of right carotid artery Occlusion and stenosis of carotid artery without mention of cerebral infarction Medicare annual wellness visit, subsequent- Primary Dizziness and giddiness Encounter for screening mammogram for breast cancer Urinary tract infection symptoms Oropharyngeal dysphagia- Primary Dysphagia, oropharyngeal phase Dizziness and giddiness Primary hypertension (CMS/HCC)- Primary Unspecified essential hypertension Migraine with aura and without status migrainosus, not intractable (CMS/HCC) Oropharyngeal dysphagia Dysphagia, oropharyngeal phase Oropharyngeal dysphagia- Primary Dysphagia, oropharyngeal phase Dysarthria Cerebrovascular accident (CVA), unspecified mechanism (CMS/HCC) Atherosclerosis of coronary artery of [place] heart, unspecified vessel or lesion type, unspecified whether angina present (CMS/HCC) Primary hypertension (CMS/HCC) Unspecified essential hypertension Stenosis of right carotid artery Occlusion and stenosis of carotid artery without mention of cerebral infarction Mixed hyperlipidemia (CMS/HCC) Mixed hyperlipidemia Dizziness and giddiness Impaired mobility and activities of daily living Migraine with aura and without status migrainosus, not intractable (CMS/HCC) Muscle spasm Spasm of muscle Anxiety and depression (CMS/HCC) Iron deficiency Disorders of iron metabolism Psychophysiological insomnia Persistent disorder of initiating or maintaining sleep Oropharyngeal dysphagia- Primary Dysphagia, oropharyngeal phase documented in this encounter [facility] Healthcare[facility] note* Diagnosis URTI (acute upper respiratory infection)- Primary Acute upper respiratory infections of unspecified site Overflow incontinence of urine Overflow incontinence Dizziness and giddiness- Primary Peripheral vertigo involving left ear Stenosis of right carotid artery Occlusion and stenosis of carotid artery without mention of cerebral infarction Medicare annual wellness visit, subsequent- Primary Dizziness and giddiness Encounter for screening mammogram for breast cancer Urinary tract infection symptoms Oropharyngeal dysphagia- Primary Dysphagia, oropharyngeal phase Dizziness and giddiness Primary hypertension (CMS/HCC)- Primary Unspecified essential hypertension Migraine with aura and without status migrainosus, not intractable (CMS/HCC) Oropharyngeal dysphagia Dysphagia, oropharyngeal phase Oropharyngeal dysphagia- Primary Dysphagia, oropharyngeal phase Dysarthria Cerebrovascular accident (CVA), unspecified mechanism (CMS/HCC) Atherosclerosis of coronary artery of [place] heart, unspecified vessel or lesion type, unspecified whether angina present (CMS/HCC) Primary hypertension (CMS/HCC) Unspecified essential hypertension Stenosis of right carotid artery Occlusion and stenosis of carotid artery without mention of cerebral infarction Mixed hyperlipidemia (CMS/HCC) Mixed hyperlipidemia Dizziness and giddiness Impaired mobility and activities of daily living Migraine with aura and without status migrainosus, not intractable (CMS/HCC) Muscle spasm Spasm of muscle Anxiety and depression (CMS/HCC) Iron deficiency Disorders of iron metabolism Psychophysiological insomnia Persistent disorder of initiating or maintaining sleep Anxiety and depression (CMS/HCC) documented in this encounter [facility] HealthcareEvaluation note* Diagnosis URTI (acute upper respiratory infection)- Primary Acute upper respiratory infections of unspecified site Overflow incontinence of urine Overflow incontinence Dizziness and giddiness- Primary Peripheral vertigo involving left ear Stenosis of right carotid artery Occlusion and stenosis of carotid artery without mention of cerebral infarction Medicare annual wellness visit, subsequent- Primary Dizziness and giddiness Encounter for screening mammogram for breast cancer Urinary tract infection symptoms Oropharyngeal dysphagia- Primary Dysphagia, oropharyngeal phase Dizziness and giddiness Primary hypertension (CMS/HCC)- Primary Unspecified essential hypertension Migraine with aura and without status migrainosus, not intractable (CMS/HCC) Oropharyngeal dysphagia Dysphagia, oropharyngeal phase Oropharyngeal dysphagia- Primary Dysphagia, oropharyngeal phase Dysarthria Cerebrovascular accident (CVA), unspecified mechanism (CMS/HCC) Atherosclerosis of coronary artery of [place] heart, unspecified vessel or lesion type, unspecified whether angina present (CMS/HCC) Primary hypertension (CMS/HCC) Unspecified essential hypertension Stenosis of right carotid artery Occlusion and stenosis of carotid artery without mention of cerebral infarction Mixed hyperlipidemia (CMS/HCC) Mixed hyperlipidemia Dizziness and giddiness Impaired mobility and activities of daily living Migraine with aura and without status migrainosus, not intractable (CMS/HCC) Muscle spasm Spasm of muscle Anxiety and depression (CMS/HCC) Iron deficiency Disorders of iron metabolism Psychophysiological insomnia Persistent disorder of initiating or maintaining sleep Ataxia- Primary Lack of coordination History of ischemic stroke documented in this encounter [facility]* Diagnosis Acute cystitis without hematuria- Primary documented in this encounter [facility] note* Diagnosis Urinary tract infection symptoms- Primary documented in this encounter [facility] note* Diagnosis URTI (acute upper respiratory infection)- Primary Acute upper respiratory infections of unspecified site Overflow incontinence of urine Overflow incontinence Dizziness and giddiness- Primary Peripheral vertigo involving left ear Stenosis of right carotid artery Occlusion and stenosis of carotid artery without mention of cerebral infarction Medicare annual wellness visit, subsequent- Primary Dizziness and giddiness Encounter for screening mammogram for breast cancer Urinary tract infection symptoms Oropharyngeal dysphagia- Primary Dysphagia, oropharyngeal phase Dizziness and giddiness Primary hypertension (CMS/HCC)- Primary Unspecified essential hypertension Migraine with aura and without status migrainosus, not intractable (CMS/HCC) Oropharyngeal dysphagia Dysphagia, oropharyngeal phase Oropharyngeal dysphagia- Primary Dysphagia, oropharyngeal phase Dysarthria Cerebrovascular accident (CVA), unspecified mechanism (CMS/HCC) Atherosclerosis of coronary artery of [place] heart, unspecified vessel or lesion type, unspecified whether angina present (CMS/HCC) Primary hypertension (CMS/HCC) Unspecified essential hypertension Stenosis of right carotid artery Occlusion and stenosis of carotid artery without mention of cerebral infarction Mixed hyperlipidemia (CMS/HCC) Mixed hyperlipidemia Dizziness and giddiness Impaired mobility and activities of daily living Migraine with aura and without status migrainosus, not intractable (CMS/HCC) Muscle spasm Spasm of muscle Anxiety and depression (CMS/HCC) Iron deficiency Disorders of iron metabolism Psychophysiological insomnia Persistent disorder of initiating or maintaining sleep Primary hypertension (CMS/HCC)- Primary Unspecified essential hypertension Heart failure, unspecified (CMS/HCC) Heart failure, unspecified Peripheral vascular disease, unspecified (CMS/HCC) Peripheral vascular disease, unspecified Atherosclerosis of coronary artery of [place] heart, unspecified vessel or lesion type, unspecified whether angina present (CMS/HCC) Stenosis of right carotid artery Occlusion and stenosis of carotid artery without mention of cerebral infarction Recurrent major depressive disorder, in full remission (CMS/HCC) Cerebrovascular accident (CVA), unspecified mechanism (CMS/HCC) Muscle spasm Spasm of muscle Iron deficiency Disorders of iron metabolism Psychophysiological insomnia Persistent disorder of initiating or maintaining sleep Migraine with aura and without status migrainosus, not intractable (CMS/HCC) CRYSTAL (generalized anxiety disorder) (CMS/HCC) Generalized anxiety disorder UTI symptoms Anxiety and depression (CMS/HCC) Overflow incontinence of urine Overflow incontinence Chronic UTI Urinary tract infection, site not specified documented in this encounter [facility]* Diagnosis URTI (acute upper respiratory infection)- Primary Acute upper respiratory infections of unspecified site Overflow incontinence of urine Overflow incontinence Dizziness and giddiness- Primary Peripheral vertigo involving left ear Stenosis of right carotid artery Occlusion and stenosis of carotid artery without mention of cerebral infarction Medicare annual wellness visit, subsequent- Primary Dizziness and giddiness Encounter for screening mammogram for breast cancer Urinary tract infection symptoms Oropharyngeal dysphagia- Primary Dysphagia, oropharyngeal phase Dizziness and giddiness Primary hypertension (CMS/HCC)- Primary Unspecified essential hypertension Migraine with aura and without status migrainosus, not intractable (CMS/HCC) Oropharyngeal dysphagia Dysphagia, oropharyngeal phase Oropharyngeal dysphagia- Primary Dysphagia, oropharyngeal phase Dysarthria Cerebrovascular accident (CVA), unspecified mechanism (CMS/HCC) Atherosclerosis of coronary artery of [place] heart, unspecified vessel or lesion type, unspecified whether angina present (CMS/HCC) Primary hypertension ([facility]/HCC) Unspecified essential hypertension Stenosis of right carotid artery Occlusion and stenosis of carotid artery without mention of cerebral infarction Mixed hyperlipidemia (CMS/HCC) Mixed hyperlipidemia Dizziness and giddiness Impaired mobility and activities of daily living Migraine with aura and without status migrainosus, not intractable (CMS/HCC) Muscle spasm Spasm of muscle Anxiety and depression ([facility]/HCC) Iron deficiency Disorders of iron metabolism Psychophysiological insomnia Persistent disorder of initiating or maintaining sleep Primary hypertension (CMS/HCC)- Primary Unspecified essential hypertension Heart failure, unspecified (CMS/HCC) Heart failure, unspecified Peripheral vascular disease, unspecified (CMS/HCC) Peripheral vascular disease, unspecified Atherosclerosis of coronary artery of [place] heart, unspecified vessel or lesion type, unspecified whether angina present (CMS/HCC) Stenosis of right carotid artery Occlusion and stenosis of carotid artery without mention of cerebral infarction Recurrent major depressive disorder, in full remission (CMS/HCC) Cerebrovascular accident (CVA), unspecified mechanism (CMS/HCC) Muscle spasm Spasm of muscle Iron deficiency Disorders of iron metabolism Psychophysiological insomnia Persistent disorder of initiating or maintaining sleep Migraine with aura and without status migrainosus, not intractable (CMS/HCC) CRYSTAL (generalized anxiety disorder) ([facility]/HCC) Generalized anxiety disorder UTI symptoms Anxiety and depression ([facility]/HCC) Overflow incontinence of urine Overflow incontinence Chronic UTI Urinary tract infection, site not specified Chronic UTI- Primary Urinary tract infection, site not specified documented in [facility] encounter [facility]* Diagnosis Cerebrovascular accident (CVA), unspecified mechanism (CMS/HCC)- Primary Oropharyngeal dysphagia Dysphagia, oropharyngeal phase Dysarthria documented in this encounter [facility] HealthcareEvaluation note* Diagnosis Oropharyngeal dysphagia- Primary Dysphagia, oropharyngeal phase Dysarthria Cerebrovascular accident (CVA), unspecified mechanism (CMS/HCC) Atherosclerosis of coronary artery of [place] heart, unspecified vessel or lesion type, unspecified whether angina present (CMS/HCC) Primary hypertension (CMS/HCC) Unspecified essential hypertension Stenosis of right carotid artery Occlusion and stenosis of carotid artery without mention of cerebral infarction Mixed hyperlipidemia (CMS/HCC) Mixed hyperlipidemia Dizziness and giddiness Impaired mobility and activities of daily living Migraine with aura and without status migrainosus, not intractable (CMS/HCC) Muscle spasm Spasm of muscle Anxiety and depression (CMS/HCC) Iron deficiency Disorders of iron metabolism Psychophysiological insomnia Persistent disorder of initiating or maintaining sleep documented in this encounter [facility] HealthcareEvaluation note* Diagnosis URTI (acute upper respiratory infection)- Primary Acute upper respiratory infections of unspecified site Overflow incontinence of urine Overflow incontinence Dizziness and giddiness- Primary Peripheral vertigo involving left ear Stenosis of right carotid artery Occlusion and stenosis of carotid artery without mention of cerebral infarction Medicare annual wellness visit, subsequent- Primary Dizziness and giddiness Encounter for screening mammogram for breast cancer Urinary tract infection symptoms Oropharyngeal dysphagia- Primary Dysphagia, oropharyngeal phase Dizziness and giddiness Primary hypertension (CMS/HCC)- Primary Unspecified essential hypertension Migraine with aura and without status migrainosus, not intractable (CMS/HCC) Oropharyngeal dysphagia Dysphagia, oropharyngeal phase Oropharyngeal dysphagia- Primary Dysphagia, oropharyngeal phase Dysarthria Cerebrovascular accident (CVA), unspecified mechanism (CMS/HCC) Atherosclerosis of coronary artery of [place] heart, unspecified vessel or lesion type, unspecified whether angina present (CMS/HCC) Primary hypertension (CMS/HCC) Unspecified essential hypertension Stenosis of right carotid artery Occlusion and stenosis of carotid artery without mention of cerebral infarction Mixed hyperlipidemia (CMS/HCC) Mixed hyperlipidemia Dizziness and giddiness Impaired mobility and activities of daily living Migraine with aura and without status migrainosus, not intractable (CMS/HCC) Muscle spasm Spasm of muscle Anxiety and depression (CMS/HCC) Iron deficiency Disorders of iron metabolism Psychophysiological insomnia Persistent disorder of initiating or maintaining sleep Primary hypertension (CMS/HCC)- Primary Unspecified essential hypertension Heart failure, unspecified (CMS/HCC) Heart failure, unspecified Peripheral vascular disease, unspecified ([facility]/HCC) Peripheral vascular disease, unspecified Atherosclerosis of coronary artery of [place] heart, unspecified vessel or lesion type, unspecified whether angina present ([facility]) Stenosis of right carotid artery Occlusion and stenosis of carotid artery without mention of cerebral infarction Recurrent major depressive disorder, in full remission (CMS/HCC) Cerebrovascular accident (CVA), unspecified mechanism (CMS/HCC) Muscle spasm Spasm of muscle Iron deficiency Disorders of iron metabolism Psychophysiological insomnia Persistent disorder of initiating or maintaining sleep Migraine with aura and without status migrainosus, not intractable (CMS/HCC) CRYSTAL (generalized anxiety disorder) ([facility]) Generalized anxiety disorder UTI symptoms Anxiety and depression ([facility]) Overflow incontinence of urine Overflow incontinence Chronic UTI Urinary tract infection, site not specified Chronic UTI- Primary Urinary tract infection, site not specified Cerebrovascular accident (CVA), unspecified mechanism (CMS/HCC)- Primary Dysarthria White matter disease Stenosis of carotid artery, unspecified laterality Peripheral vascular disease, unspecified ([facility]/HCC) Peripheral vascular disease, unspecified Overflow incontinence of urine Overflow incontinence Dizziness and giddiness documented in this encounter [facility] HealthcareEvaluation [facility]* Diagnosis Functional gait disorder- Primary Dizziness Dizziness and giddiness [facility] Diagnosis Dizzy- Primary Dizziness and giddiness 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 ([facility]) Dizziness Dizziness and giddiness documented in [facility]* Diagnosis URTI (acute upper respiratory infection)- Primary Acute upper respiratory infections of unspecified site Overflow incontinence of urine Overflow incontinence Dizziness and giddiness- Primary Peripheral vertigo involving left ear Stenosis of right carotid artery Occlusion and stenosis of carotid artery without mention of cerebral infarction Medicare annual wellness visit, subsequent- Primary Dizziness and giddiness Encounter for screening mammogram for breast cancer Urinary tract infection symptoms Oropharyngeal dysphagia- Primary Dysphagia, oropharyngeal phase Dizziness and giddiness Primary hypertension ([facility]/HCC)- Primary Unspecified essential hypertension Migraine with aura and without status migrainosus, not intractable (CMS/HCC) Oropharyngeal dysphagia Dysphagia, oropharyngeal phase Oropharyngeal dysphagia- Primary Dysphagia, oropharyngeal phase Dysarthria Cerebrovascular accident (CVA), unspecified mechanism (CMS/HCC) Atherosclerosis of coronary artery of [place] heart, unspecified vessel or lesion type, unspecified whether angina present ([facility]) Primary hypertension ([facility]) Unspecified essential hypertension Stenosis of right carotid artery Occlusion and stenosis of carotid artery without mention of cerebral infarction Mixed hyperlipidemia ([facility]) Mixed hyperlipidemia Dizziness and giddiness Impaired mobility and activities of daily living Migraine with aura and without status migrainosus, not intractable ([facility]) Muscle spasm Spasm of muscle Anxiety and depression ([facility]) Iron deficiency Disorders of iron metabolism Psychophysiological insomnia Persistent disorder of initiating or maintaining sleep Primary hypertension ([facility])- Primary Unspecified essential hypertension Heart failure, unspecified ([facility]) Heart failure, unspecified Peripheral vascular disease, unspecified ([facility]) Peripheral vascular disease, unspecified Atherosclerosis of coronary artery of [place] heart, unspecified vessel or lesion type, unspecified whether angina present ([facility]) Stenosis of right carotid artery Occlusion and stenosis of carotid artery without mention of cerebral infarction Recurrent major depressive disorder, in full remission ([facility]) Cerebrovascular accident (CVA), unspecified mechanism ([facility]) Muscle spasm Spasm of muscle Iron deficiency Disorders of iron metabolism Psychophysiological insomnia Persistent disorder of initiating or maintaining sleep Migraine with aura and without status migrainosus, not intractable ([facility]) CRYSTAL (generalized anxiety disorder) ([facility]) Generalized anxiety disorder UTI symptoms Anxiety and depression ([facility]) Overflow incontinence of urine Overflow incontinence Chronic UTI Urinary tract infection, site not specified Impaired mobility and activities of daily living History of cerebrovascular accident (CVA) with residual deficit Chronic UTI- Primary Urinary tract infection, site not specified Primary hypertension ([facility])- Primary Unspecified essential hypertension Cerebrovascular accident (CVA), unspecified mechanism ([facility]) Dizziness and giddiness Overflow incontinence of urine Overflow incontinence CRYSTAL (generalized anxiety disorder) ([facility]) Generalized anxiety disorder Impaired mobility and activities of daily living documented in this encounter [facility]* Diagnosis URTI (acute upper respiratory infection)- Primary Acute upper respiratory infections of unspecified site Overflow incontinence of urine Overflow incontinence Dizziness and giddiness- Primary Peripheral vertigo involving left ear Stenosis of right carotid artery Occlusion and stenosis of carotid artery without mention of cerebral infarction Medicare annual wellness visit, subsequent- Primary Dizziness and giddiness Encounter for screening mammogram for breast cancer Urinary tract infection symptoms Oropharyngeal dysphagia- Primary Dysphagia, oropharyngeal phase Dizziness and giddiness Primary hypertension ([facility]/HCC)- Primary Unspecified essential hypertension Migraine with aura and without status migrainosus, not intractable (CMS/HCC) Oropharyngeal dysphagia Dysphagia, oropharyngeal phase Oropharyngeal dysphagia- Primary Dysphagia, oropharyngeal phase Dysarthria Cerebrovascular accident (CVA), unspecified mechanism (CMS/HCC) Atherosclerosis of coronary artery of [place] heart, unspecified vessel or lesion type, unspecified whether angina present (CMS/HCC) Primary hypertension ([facility]/HCC) Unspecified essential hypertension Stenosis of right carotid artery Occlusion and stenosis of carotid artery without mention of cerebral infarction Mixed hyperlipidemia (CMS/HCC) Mixed hyperlipidemia Dizziness and giddiness Impaired mobility and activities of daily living Migraine with aura and without status migrainosus, not intractable ([facility]/HCC) Muscle spasm Spasm of muscle Anxiety and depression ([facility]) Iron deficiency Disorders of iron metabolism Psychophysiological insomnia Persistent disorder of initiating or maintaining sleep Primary hypertension ([facility]/HCC)- Primary Unspecified essential hypertension Heart failure, unspecified ([facility]) Heart failure, unspecified Peripheral vascular disease, unspecified ([facility]) Peripheral vascular disease, unspecified Atherosclerosis of coronary artery of [place] heart, unspecified vessel or lesion type, unspecified whether angina present ([facility]) Stenosis of right carotid artery Occlusion and stenosis of carotid artery without mention of cerebral infarction Recurrent major depressive disorder, in full remission ([facility]) Cerebrovascular accident (CVA), unspecified mechanism ([facility]/HCC) Muscle spasm Spasm of muscle Iron deficiency Disorders of iron metabolism Psychophysiological insomnia Persistent disorder of initiating or maintaining sleep Migraine with aura and without status migrainosus, not intractable ([facility]/HCC) CRYSTAL (generalized anxiety disorder) ([facility]) Generalized anxiety disorder UTI symptoms Anxiety and depression ([facility]) Overflow incontinence of urine Overflow incontinence Chronic UTI Urinary tract infection, site not specified Impaired mobility and activities of daily living History of cerebrovascular accident (CVA) with residual deficit Chronic UTI- Primary Urinary tract infection, site not specified Primary hypertension ([facility]/HCC)- Primary Unspecified essential hypertension Cerebrovascular accident (CVA), unspecified mechanism (CMS/HCC) Dizziness and giddiness Overflow incontinence of urine Overflow incontinence CRYSTAL (generalized anxiety disorder) ([facility]) Generalized anxiety disorder Impaired mobility and activities of daily living Dizziness and giddiness- Primary documented in this encounter [facility]* Diagnosis URTI (acute upper respiratory infection)- Primary Acute upper respiratory infections of unspecified site Overflow incontinence of urine Overflow incontinence Dizziness and giddiness- Primary Peripheral vertigo involving left ear Stenosis of right carotid artery Occlusion and stenosis of carotid artery without mention of cerebral infarction Medicare annual wellness visit, subsequent- Primary Dizziness and giddiness Encounter for screening mammogram for breast cancer Urinary tract infection symptoms Oropharyngeal dysphagia- Primary Dysphagia, oropharyngeal phase Dizziness and giddiness Primary hypertension ([facility]/HCC)- Primary Unspecified essential hypertension Migraine with aura and without status migrainosus, not intractable ([facility]/HCC) Oropharyngeal dysphagia Dysphagia, oropharyngeal phase Oropharyngeal dysphagia- Primary Dysphagia, oropharyngeal phase Dysarthria Cerebrovascular accident (CVA), unspecified mechanism ([facility]/HCC) Atherosclerosis of coronary artery of [place] heart, unspecified vessel or lesion type, unspecified whether angina present ([facility]) Primary hypertension ([facility]) Unspecified essential hypertension Stenosis of right carotid artery Occlusion and stenosis of carotid artery without mention of cerebral infarction Mixed hyperlipidemia ([facility]) Mixed hyperlipidemia Dizziness and giddiness Impaired mobility and activities of daily living Migraine with aura and without status migrainosus, not intractable ([facility]) Muscle spasm Spasm of muscle Anxiety and depression ([facility]) Iron deficiency Disorders of iron metabolism Psychophysiological insomnia Persistent disorder of initiating or maintaining sleep Primary hypertension ([facility]/HCC)- Primary Unspecified essential hypertension Heart failure, unspecified ([facility]/HCC) Heart failure, unspecified Peripheral vascular disease, unspecified ([facility]/HCC) Peripheral vascular disease, unspecified Atherosclerosis of coronary artery of [place] heart, unspecified vessel or lesion type, unspecified whether angina present ([facility]) Stenosis of right carotid artery Occlusion and stenosis of carotid artery without mention of cerebral infarction Recurrent major depressive disorder, in full remission ([facility]) Cerebrovascular accident (CVA), unspecified mechanism (CMS/HCC) Muscle spasm Spasm of muscle Iron deficiency Disorders of iron metabolism Psychophysiological insomnia Persistent disorder of initiating or maintaining sleep Migraine with aura and without status migrainosus, not intractable (CMS/HCC) CRYSTAL (generalized anxiety disorder) ([facility]) Generalized anxiety disorder UTI symptoms Anxiety and depression ([facility]) Overflow incontinence of urine Overflow incontinence Chronic UTI Urinary tract infection, site not specified Impaired mobility and activities of daily living History of cerebrovascular accident (CVA) with residual deficit Chronic UTI- Primary Urinary tract infection, site not specified Primary hypertension (CMS/HCC)- Primary Unspecified essential hypertension Cerebrovascular accident (CVA), unspecified mechanism (CMS/HCC) Dizziness and giddiness Overflow incontinence of urine Overflow incontinence CRYSTAL (generalized anxiety disorder) (CMS/HCC) Generalized anxiety disorder Impaired mobility and activities of daily living Acute diffuse otitis externa of both ears- Primary documented in this encounter [facility] HealthcareEvaluation note* Diagnosis URTI (acute upper respiratory infection)- Primary Acute upper respiratory infections of unspecified site Overflow incontinence of urine Overflow incontinence Dizziness and giddiness- Primary Peripheral vertigo involving left ear Stenosis of right carotid artery Occlusion and stenosis of carotid artery without mention of cerebral infarction Medicare annual wellness visit, subsequent- Primary Dizziness and giddiness Encounter for screening mammogram for breast cancer Urinary tract infection symptoms Oropharyngeal dysphagia- Primary Dysphagia, oropharyngeal phase Dizziness and giddiness Primary hypertension (CMS/HCC)- Primary Unspecified essential hypertension Migraine with aura and without status migrainosus, not intractable (CMS/HCC) Oropharyngeal dysphagia Dysphagia, oropharyngeal phase Oropharyngeal dysphagia- Primary Dysphagia, oropharyngeal phase Dysarthria Cerebrovascular accident (CVA), unspecified mechanism (CMS/HCC) Atherosclerosis of coronary artery of [place] heart, unspecified vessel or lesion type, unspecified whether angina present (CMS/HCC) Primary hypertension (CMS/HCC) Unspecified essential hypertension Stenosis of right carotid artery Occlusion and stenosis of carotid artery without mention of cerebral infarction Mixed hyperlipidemia (CMS/HCC) Mixed hyperlipidemia Dizziness and giddiness Impaired mobility and activities of daily living Migraine with aura and without status migrainosus, not intractable (CMS/HCC) Muscle spasm Spasm of muscle Anxiety and depression (CMS/HCC) Iron deficiency Disorders of iron metabolism Psychophysiological insomnia Persistent disorder of initiating or maintaining sleep Primary hypertension (CMS/HCC)- Primary Unspecified essential hypertension Heart failure, unspecified (CMS/HCC) Heart failure, unspecified Peripheral vascular disease, unspecified (CMS/HCC) Peripheral vascular disease, unspecified Atherosclerosis of coronary artery of [place] heart, unspecified vessel or lesion type, unspecified whether angina present (CMS/HCC) Stenosis of right carotid artery Occlusion and stenosis of carotid artery without mention of cerebral infarction Recurrent major depressive disorder, in full remission (CMS/HCC) Cerebrovascular accident (CVA), unspecified mechanism (CMS/HCC) Muscle spasm Spasm of muscle Iron deficiency Disorders of iron metabolism Psychophysiological insomnia Persistent disorder of initiating or maintaining sleep Migraine with aura and without status migrainosus, not intractable ([facility]/HCC) CRYSTAL (generalized anxiety disorder) ([facility]) Generalized anxiety disorder UTI symptoms Anxiety and depression ([facility]) Overflow incontinence of urine Overflow incontinence Chronic UTI Urinary tract infection, site not specified Impaired mobility and activities of daily living History of cerebrovascular accident (CVA) with residual deficit Chronic UTI- Primary Urinary tract infection, site not specified Primary hypertension ([facility])- Primary Unspecified essential hypertension Cerebrovascular accident (CVA), unspecified mechanism ([facility]) Dizziness and giddiness Overflow incontinence of urine Overflow incontinence CRYSTAL (generalized anxiety disorder) ([facility]) Generalized anxiety disorder Impaired mobility and activities of daily living Ataxia- Primary Lack of coordination Gait instability Abnormality of gait Expressive aphasia Memory difficulty Memory loss History of ischemic stroke Acute diffuse otitis externa of both ears- Primary documented in this encounter [facility] HealthcareEvaluation note* Diagnosis URTI (acute upper respiratory infection)- Primary Acute upper respiratory infections of unspecified site Overflow incontinence of urine Overflow incontinence Dizziness and giddiness- Primary Peripheral vertigo involving left ear Stenosis of right carotid artery Occlusion and stenosis of carotid artery without mention of cerebral infarction Medicare annual wellness visit, subsequent- Primary Dizziness and giddiness Encounter for screening mammogram for breast cancer Urinary tract infection symptoms Oropharyngeal dysphagia- Primary Dysphagia, oropharyngeal phase Dizziness and giddiness Primary hypertension ([facility])- Primary Unspecified essential hypertension Migraine with aura and without status migrainosus, not intractable ([facility]) Oropharyngeal dysphagia Dysphagia, oropharyngeal phase Oropharyngeal dysphagia- Primary Dysphagia, oropharyngeal phase Dysarthria Cerebrovascular accident (CVA), unspecified mechanism ([facility]) Atherosclerosis of coronary artery of [place] heart, unspecified vessel or lesion type, unspecified whether angina present ([facility]) Primary hypertension ([facility]) Unspecified essential hypertension Stenosis of right carotid artery Occlusion and stenosis of carotid artery without mention of cerebral infarction Mixed hyperlipidemia ([facility]) Mixed hyperlipidemia Dizziness and giddiness Impaired mobility and activities of daily living Migraine with aura and without status migrainosus, not intractable ([facility]) Muscle spasm Spasm of muscle Anxiety and depression ([facility]) Iron deficiency Disorders of iron metabolism Psychophysiological insomnia Persistent disorder of initiating or maintaining sleep Primary hypertension ([facility])- Primary Unspecified essential hypertension Heart failure, unspecified ([facility]) Heart failure, unspecified Peripheral vascular disease, unspecified ([facility]/HCC) Peripheral vascular disease, unspecified Atherosclerosis of coronary artery of [place] heart, unspecified vessel or lesion type, unspecified whether angina present ([facility]) Stenosis of right carotid artery Occlusion and stenosis of carotid artery without mention of cerebral infarction Recurrent major depressive disorder, in full remission ([facility]) Cerebrovascular accident (CVA), unspecified mechanism ([facility]/HCC) Muscle spasm Spasm of muscle Iron deficiency Disorders of iron metabolism Psychophysiological insomnia Persistent disorder of initiating or maintaining sleep Migraine with aura and without status migrainosus, not intractable (CMS/HCC) CRYSTAL (generalized anxiety disorder) ([facility]) Generalized anxiety disorder UTI symptoms Anxiety and depression ([facility]) Overflow incontinence of urine Overflow incontinence Chronic UTI Urinary tract infection, site not specified Impaired mobility and activities of daily living History of cerebrovascular accident (CVA) with residual deficit Chronic UTI- Primary Urinary tract infection, site not specified Primary hypertension ([facility])- Primary Unspecified essential hypertension Cerebrovascular accident (CVA), unspecified mechanism ([facility]) Dizziness and giddiness Overflow incontinence of urine Overflow incontinence CRYSTAL (generalized anxiety disorder) ([facility]) Generalized anxiety disorder Impaired mobility and activities of daily living Acute diffuse otitis externa of both ears- Primary Expressive aphasia- Primary Memory difficulty Memory loss History of ischemic stroke Staring episodes Other insomnia Stress due to family tension documented in this encounter [facility]* Diagnosis URTI (acute upper respiratory infection)- Primary Acute upper respiratory infections of unspecified site Overflow incontinence of urine Overflow incontinence Dizziness and giddiness- Primary Peripheral vertigo involving left ear Stenosis of right carotid artery Occlusion and stenosis of carotid artery without mention of cerebral infarction Medicare annual wellness visit, subsequent- Primary Dizziness and giddiness Encounter for screening mammogram for breast cancer Urinary tract infection symptoms Oropharyngeal dysphagia- Primary Dysphagia, oropharyngeal phase Dizziness and giddiness Primary hypertension ([facility]/HCC)- Primary Unspecified essential hypertension Migraine with aura and without status migrainosus, not intractable ([facility]) Oropharyngeal dysphagia Dysphagia, oropharyngeal phase Oropharyngeal dysphagia- Primary Dysphagia, oropharyngeal phase Dysarthria Cerebrovascular accident (CVA), unspecified mechanism ([facility]/HCC) Atherosclerosis of coronary artery of [place] heart, unspecified vessel or lesion type, unspecified whether angina present ([facility]) Primary hypertension ([facility]) Unspecified essential hypertension Stenosis of right carotid artery Occlusion and stenosis of carotid artery without mention of cerebral infarction Mixed hyperlipidemia ([facility]/HCC) Mixed hyperlipidemia Dizziness and giddiness Impaired mobility and activities of daily living Migraine with aura and without status migrainosus, not intractable ([facility]) Muscle spasm Spasm of muscle Anxiety and depression ([facility]) Iron deficiency Disorders of iron metabolism Psychophysiological insomnia Persistent disorder of initiating or maintaining sleep Primary hypertension ([facility])- Primary Unspecified essential hypertension Heart failure, unspecified ([facility]) Heart failure, unspecified Peripheral vascular disease, unspecified ([facility]) Peripheral vascular disease, unspecified Atherosclerosis of coronary artery of [place] heart, unspecified vessel or lesion type, unspecified whether angina present ([facility]) Stenosis of right carotid artery Occlusion and stenosis of carotid artery without mention of cerebral infarction Recurrent major depressive disorder, in full remission ([facility]) Cerebrovascular accident (CVA), unspecified mechanism ([facility]) Muscle spasm Spasm of muscle Iron deficiency Disorders of iron metabolism Psychophysiological insomnia Persistent disorder of initiating or maintaining sleep Migraine with aura and without status migrainosus, not intractable ([facility]) CRYSTAL (generalized anxiety disorder) ([facility]) Generalized anxiety disorder UTI symptoms Anxiety and depression ([facility]) Overflow incontinence of urine Overflow incontinence Chronic UTI Urinary tract infection, site not specified Impaired mobility and activities of daily living History of cerebrovascular accident (CVA) with residual deficit Chronic UTI- Primary Urinary tract infection, site not specified Primary hypertension ([facility])- Primary Unspecified essential hypertension Cerebrovascular accident (CVA), unspecified mechanism ([facility]) Dizziness and giddiness Overflow incontinence of urine Overflow incontinence CRYSTAL (generalized anxiety disorder) ([facility]) Generalized anxiety disorder Impaired mobility and activities of daily living Acute diffuse otitis externa of both ears- Primary Chronic UTI- Primary Urinary tract infection, site not specified Anxiety and depression ([facility]) Overflow incontinence of urine Overflow incontinence documented in this encounter [facility] Diagnosis URTI (acute upper respiratory infection)- Primary Acute upper respiratory infections of unspecified site Overflow incontinence of urine Overflow incontinence Dizziness and giddiness- Primary Peripheral vertigo involving left ear Stenosis of right carotid artery Occlusion and stenosis of carotid artery without mention of cerebral infarction Medicare annual wellness visit, subsequent- Primary Dizziness and giddiness Encounter for screening mammogram for breast cancer Urinary tract infection symptoms Oropharyngeal dysphagia- Primary Dysphagia, oropharyngeal phase Dizziness and giddiness Primary hypertension ([facility]/HCC)- Primary Unspecified essential hypertension Migraine with aura and without status migrainosus, not intractable ([facility]) Oropharyngeal dysphagia Dysphagia, oropharyngeal phase Oropharyngeal dysphagia- Primary Dysphagia, oropharyngeal phase Dysarthria Cerebrovascular accident (CVA), unspecified mechanism (CMS/HCC) Atherosclerosis of coronary artery of [place] heart, unspecified vessel or lesion type, unspecified whether angina present ([facility]) Primary hypertension ([facility]) Unspecified essential hypertension Stenosis of right carotid artery Occlusion and stenosis of carotid artery without mention of cerebral infarction Mixed hyperlipidemia ([facility]) Mixed hyperlipidemia Dizziness and giddiness Impaired mobility and activities of daily living Migraine with aura and without status migrainosus, not intractable ([facility]) Muscle spasm Spasm of muscle Anxiety and depression ([facility]) Iron deficiency Disorders of iron metabolism Psychophysiological insomnia Persistent disorder of initiating or maintaining sleep Primary hypertension ([facility])- Primary Unspecified essential hypertension Heart failure, unspecified ([facility]) Heart failure, unspecified Peripheral vascular disease, unspecified ([facility]) Peripheral vascular disease, unspecified Atherosclerosis of coronary artery of [place] heart, unspecified vessel or lesion type, unspecified whether angina present ([facility]) Stenosis of right carotid artery Occlusion and stenosis of carotid artery without mention of cerebral infarction Recurrent major depressive disorder, in full remission ([facility]) Cerebrovascular accident (CVA), unspecified mechanism ([facility]) Muscle spasm Spasm of muscle Iron deficiency Disorders of iron metabolism Psychophysiological insomnia Persistent disorder of initiating or maintaining sleep Migraine with aura and without status migrainosus, not intractable ([facility]) CRYSTAL (generalized anxiety disorder) ([facility]) Generalized anxiety disorder UTI symptoms Anxiety and depression ([facility]) Overflow incontinence of urine Overflow incontinence Chronic UTI Urinary tract infection, site not specified Impaired mobility and activities of daily living History of cerebrovascular accident (CVA) with residual deficit Chronic UTI- Primary Urinary tract infection, site not specified Primary hypertension ([facility]/HCC)- Primary Unspecified essential hypertension Cerebrovascular accident (CVA), unspecified mechanism ([facility]) Dizziness and giddiness Overflow incontinence of urine Overflow incontinence CRYSTAL (generalized anxiety disorder) ([facility]) Generalized anxiety disorder Impaired mobility and activities of daily living Acute diffuse otitis externa of both ears- Primary Primary progressive aphasia ([facility])- Primary Ataxia Lack of coordination Memory difficulty Memory loss History of ischemic stroke Other insomnia DULCE MARIA (obstructive sleep apnea) Obstructive sleep apnea (adult) (pediatric) Severe episode of recurrent major depressive disorder, without psychotic features (HCC) (CMS/HCC) Severe anxiety documented in this encounter [facility] Narrative - Reported* Type Description Date [...] History childbirth Hospitalization History X2 strokes 2018 [facility] Other History general Narrative - Reported* Type [...] History childbirth Hospitalization History X2 strokes 2018 [facility] Other Hospital Discharge instructions Additional Instructions Please call and schedule an appointment with your established [employer]. We attempted to make this appointment for you but the office was currently unavailable.[facility] Work Phone: Hospital Discharge instructions No data available for this section [facility]ructionsNot on filedocumented in this encounter [facility] filedocumented in this encounter [facility]Not on filedocumented in this encounter [facility]Not on filedocumented in this encounter [facility]ructionsNot on filedocumented in this encounter [facility]ructionsNot on filedocumented in this encounter [facility] SystemProgress note No data available for this section [facility] Loki Adan Reason for referral (narrative)* Consultation (Routine) - Pending Review Specialty Diagnoses / Procedures Referred By Contac t Referred To Contact Speech Pathology Diagnoses Cerebrovascular accident (CVA), unspecified mechanism (CMS/HCC) Oropharyngeal dysphagia Dysarthria Procedures IN OFFICE/OUTPATIENT NEW HIGH MDM 60 MINUTES Cindy Collado NP [address] [place] [address] Referral ID Status Reason Start Date Expiration Date Visits Requested Visits Authorized [id number] Pending Review Specialty Services Required 10/09/2023 04/06/2024 1 1 [facility] HealthcareReason for referral (narrative)* Consultation (Routine) - Pending Review Specialty Diagnoses / Procedures Referred By Contac t Referred To Contact Neurology Diagnoses Cerebrovascular accident (CVA), unspecified mechanism (CMS/HCC) Dizziness and giddiness Impaired mobility and activities of daily living Migraine with aura and without status migrainosus, not intractable (CMS/HCC) Procedures IN OFFICE/OUTPATIENT NEW HIGH MDM 60 MINUTES Cindy Collado NP [address] [place] [address] Nakul Zazueta DO [address] [facility] [address] [place] [address] Referral ID Status Reason Start Date Expiration Date Visits Requested Visits Authorized [id number] Pending Review Specialty Services Required 10/22/2023 04/19/2024 1 1 * Consultation (Urgent) - Pending Review Specialty Diagnoses / Procedures Referred By Contac t Referred To Contact Otolaryngology Diagnoses Oropharyngeal dysphagia Procedures IN OFFICE/OUTPATIENT NEW HIGH MDM 60 MINUTES Cindy Collado NP [address] [place] [address] SharatammyAime W, DO [address] [place] [address] Referral ID Status Reason Start Date Expiration Date Visits Requested Visits Authorized [id number] Pending Review Specialty Services Required 10/22/2023 04/19/2024 1 1 [facility] Consultation (Routine) - Pending Review Specialty Diagnoses / Procedures Referred By Armando walker Referred To Contact Neurology Diagnoses Rabia Hunt PA-C [address] [place] [address] [address] [place] [address] Martin Espinosa MD [address] [place] [address], [address], [address], [address] [place] [address] Referral ID Status Reason Start Date Expiration Date Visits Requested Visits Authorized [id number] Pending Review Specialty Services Required 03/20/2023 03/19/2024 1 1 [facility] N[facility] Consultation (Routine) - Pending Review Specialty Diagnoses / Procedures Referred By Armando walker Referred To Contact Neurology Diagnoses Rabia Hunt PA-C [address] [place] [address] [address] [place] [address] Martin Espinosa MD [address] [place] [address], [address], [address], [address] [place] [address] Referral ID Status Reason Start Date Expiration Date Visits Requested Visits Authorized [id number] Pending Review Specialty Services Required 03/20/2023 03/19/2024 1 1 [facility] N[facility]* Consultation (Routine) - Closed Specialty Diagnoses / Procedures Referred By Contac t Referred To Contact Neuropsychology Diagnoses Expressive aphasia Memory difficulty History of ischemic stroke Procedures IN OFFICE/OUTPATIENT NEW HIGH MDM 60 MINUTES Jameson Ceballos, SANDRA [address] [place] [address] Phone: tel: Chaim Noel, PhD [address] [address] Phone: tel: fax: Referral ID Status Reason Start Date Expiration Date V isits Requested Visits Authorized [id number] Closed Specialty Services Required 06/07/2024 12/04/2024 1 1 [facility] Summary Purpose Family History Relationship Condition Age at Onset Recorded Date/T [...] history of lung cancer Unknown Advance Directives Advance Directive Response Recorded Date/ Time Advance Directives No October 9:28am Advance Directive Response Recorded Date/ Time Advance Directives No October 8:28am Advance Directive Response Recorded Date/ Time Advance Directives No May 12 4:06pm Advance Directive Response Recorded Date/ Time Advance Directives No May 12 3:06pm Date Activated Date Inactivated Comments 07/22/2018 6:33 AM 07/24/2018 4:48 PM Date Activated Date Inactivated Comments 04/05/2018 3:35 PM 04/10/2018 5:18 PM Date Activated Date Inactivated Comments 04/05/2018 10:14 AM 04/05/2018 3:35 PM Latest Code Status on File Code Status Date Activated Date Inactivated Comments Full Code 07/22/2018 6:33 AM 07/24/2018 4:48 PM Code Status History Code Status Date Activated Date Inactivated Comments Full Code 04/05/2018 3:35 PM 04/10/2018 5:18 PM Full Code 04/05/2018 10:14 AM 04/05/2018 3:35 PM Date Activated Date Inactivated Comments 07/22/2018 6:33 AM 07/24/2018 4:48 PM Date Activated Date Inactivated Comments 04/05/2018 3:35 PM 04/10/2018 5:18 PM Date Activated Date Inactivated Comments 04/05/2018 10:14 AM 04/05/2018 3:35 PM Latest [...] viral disease Internal carotid artery stent present Chief Complaint R13.12 Chief Complaint Admit Date R13.12 December 12, 2023 1 0:11am 6 MONTH FOLLOW UP; CAROTID 9:30A February 20, 2024 10:00am Reason for Visit Admit Date Carotid stenosis February 20, 2024 10 :00am Internal carotid artery stent present Ja nuary 2024 10:00am Lower extremity edema February 20, 2024 10:00am PAD (peripheral artery disease) February 20, 2024 10:00am Reason for Referral Specialty Diagnoses / Procedures Referred By Armando walker Referred To Contact Home Health Services Diagnoses Dizzy Functional gait disorder Martin Espinosa MD [address] [place] [address], [address], [address], [address] [place] [address] [facility] [id number] [place] [address] Phone: [phone] Fax: [phone] Referral ID Status Reason Start Date Expiration Date V isits Requested Visits Authorized [id number] Pending Review 07/02/2023 07/01/2024 1 1 Additional Source Comments INFORMATION SOURCE (unrecogn ized section and content) DATE CREATED AUTHOR 03/09/2020 [facility] DATE CREATED AUTHOR AUTHOR'S ORGANIZ ATION 12/03/2021 [facility] DATE CREATED AUTHOR AUTHOR'S ORGANIZ ATION 02/28/2022 [facility] DATE CREATED AUTHOR AUTHOR'S ORGANIZ ATION 05/13/2023 [facility] DATE CREATED AUTHOR AUTHOR'S ORGANIZ ATION 07/04/2023 [facility] DATE CREATED AUTHOR AUTHOR'S ORGANIZ ATION 07/16/2023 [facility] DATE CREATED AUTHOR AUTHOR'S ORGANIZ ATION 07/18/2023 [facility] DATE CREATED AUTHOR AUTHOR'S ORGANIZ ATION 02/25/2024 [facility] DATE CREATED AUTHOR AUTHOR'S ORGANIZ ATION 02/26/2024 [facility] DATE CREATED AUTHOR AUTHOR'S ORGANIZ ATION 04/05/2024 [facility] DATE CREATED AUTHOR AUTHOR'S ORGANIZ ATION 04/17/2024 [facility] DATE CREATED AUTHOR AUTHOR'S ORGANIZ ATION 05/06/2024 [facility] DATE CREATED AUTHOR AUTHOR'S ORGANIZ ATION 05/08/2024 [facility] DATE CREATED AUTHOR AUTHOR'S ORGANIZ ATION 07/01/2024 [facility] DATE CREATED AUTHOR AUTHOR'S ORGANIZ ATION 07/01/2024 [facility] DATE CREATED AUTHOR AUTHOR'S ORGANIZ ATION 07/09/2024 [facility] DATE CREATED AUTHOR AUTHOR'S ORGANIZ ATION 07/17/2024 [facility] DATE CREATED AUTHOR AUTHOR'S ORGANIZ ATION 07/24/2024 [facility] DATE CREATED AUTHOR AUTHOR'S ORGANIZ ATION 08/04/2024 [facility] REASON FOR VISIT (unrecogniz ed section and content) Reason Comments Oropharyngeal Dysphagia New Patient : Or opharyngeal Dysphagia Specialty Diagnoses / Procedures Referred By Armando t Referred To Contact Otolaryngology Diagnoses Oropharyngeal dysphagia Procedures IN OFFICE/OUTPATIENT NEW HIGH MDM 60 MINUTES Cindy Collado NP [address] [place] [address] Phone: tel: fax: Aime Walls, DO [address] [place] [address] Phone: tel: fax: Referral ID Status Reason Start Date Expiration Date V isits Requested Visits Authorized [id number] Closed Specialty Services Required 10/22/2023 04/19/2024 1 1 Reason Onset Date Comments Med Refill 12/02/2023 Reason Comments Oropharyngeal dysphagia Reason Onset Date Comments paperwork 01/24/2023 Reason Onset Date Comments office notes 07/05/2023 Reason Onset Date Comments NEW PATIENT REFERRAL 03/28/2023 Reason Onset Date Comments Sooner Appt 04/10/2023 Reason Onset Date Comments Appointment 03/04/2023 Reason Comments Hypertension Reason Comments Balance difficulty Memory Loss Care Teams (unrecognized sec tion and content) Personnel Name: HEAVEN CYDNEY CINDY Perry Address: [address] [place] [phone] Telecom: Team Status: Active Member Role Status Reid Day MD Primary Care Provider Active Team Status: Inactive Member Role Status Reid Day MD Primary Care Provide r, Attending Provider Active Start: January 21, 2023 End: January 21, 2023 Team Status: Inactive Member Role Status Reid Day MD Primary Care Provider Active Denver Juarez MD Attending Provider Active Team Status: Inactive Member Role Status Reid Day MD Primary Care Provider Active Susie Arrington MD Attending Provider Active Team Status: Active Member Role Status Reid Godwin MD Primary Care Provider Active Shaikh [...] Young MD Other Provider Active Maddie Garcia [facility] Other Provider Active Team Status: Inactive [...] Active Earline Harris APRN Attending Provider Active Nozzleman Relationship Specialty Start Date End Date Shaikh Day MD PCP - General Internal Medicine 08/30/22 Team Status: Inactive Member Role Status Dates Shaikh Barb MD Primary Care Provider Active Start: April 09, 2023 End: April 09, 2023 Denver Juarez MD Attending Provider Active Start: April 09, 2023 End: April 09, 2023 Team Status: Inactive Member Role Status Dates Shaikh Barb MD Primary Care Provider Active Start: April 09, 2023 End: April 09, 2023 Felicita Sumner NP-C Attending Provider Active Start: April 09, 2023 End: April 09, 2023 Team Status: Inactive Member Role Status Dates Shaikh Barb MD Primary Care Provider Active Start: April 12, 2023 End: April 13, 2023 Denver Juarez MD Admit Provider , Attending Provider Active Start: April 12, 2023 End: April 13, 2023 Team Status: Active Member Role Status Dates [...] May 11, 2023 End: May 11, 2023 MOHINDER Ba Attending Provider Active S tart: May 11, 2023 End: May 11, 2023 Team Status: Inactive Member Role Status Dates MOHINDER Ba Attending Provider Active S tart: May 12, 2023 End: May 12, 2023 Team Status: Inactive Member Role Status Dates MOHINDER Ba Attending Provider Active S tart: May 12, 2023 End: May 12, 2023 Shaikh Barb MD Primary Care Provider Active Start: May 12, 2023 End: May 12, 2023 Team Status: Inactive Member Role Status Dates Shaikh Barb MD Primary Care Provider Active Start: August 08, 2023 End: August 08, 2023 Denver Juarze MD Attending Provider Active Start: August 08, 2023 End: August 08, 2023 Team Status: Active Member Role Status Dates Shaikh Barb MD Primary Care Provider Active Start: August 08, 2023 MOHINDER Thompson Attending Provider Active Start: August 08, 2023 Team Status: Inactive Member Role Status Dates Shaikh Barb MD Primary Care Provider Active Start: August 08, 2023 End: August 08, 2023 MOHINDER Thompson Attending Provider Active Start: August 08, 2023 End: August 08, 2023 Nozzleman Relationship Specialty Start Date End Date Gerry Godwin MD [address] [place] [address] PCP - General Family Medicine 10/03/23 Shaikh aDy MD [address] [place] [address] PCP - Donald ZARCO 10/13/23 Cindy Collado NP [address] [place] [address] Nurse Practitioner Family Medicine 10/03/23 Nozzleman Relationship Specialty Start Date End Date Gerry Godwin MD [address] [place] [address] PCP - General Family Medicine 10/03/23 Shaikh Day MD [address] [place] [address] PCP - Donald ZARCO 10/13/23 Cindy Collado NP [address] [place] [address] Nurse Practitioner Family Medicine 10/03/23 Nozzleman Relationship Specialty Start Date End Date Gerry Godwin MD [address] [place] [address] PCP - General Family Medicine 10/03/23 Shaikh Day MD [address] [place] [address] PCP - Donald ZARCO 10/13/23 Cindy Collado NP [address] [place] [address] Nurse Practitioner Family Medicine 10/03/23 Aime Walls DO [address] [place] [address] Otolaryngology 12/02/23 Nozzleman Relationship Specialty Start Date End Date Gerry Godwin MD [address] [place] [address] PCP - General Family Medicine 10/03/23 Shaikh Day MD [address] [place] [address] PCP - Donald ZARCO 10/13/23 Cindy Collado, SANDRA [address] [place] [address] Nurse Practitioner Family Medicine 10/03/23 Aime Walls DO [address] [place] [address] Otolaryngology 12/02/23 Nozzleman Relationship Specialty Start Date End Date Gerry Godwin MD [address] [place] [address] PCP - General Family Medicine 10/03/23 Shaikh Day MD [address] [place] [address] PCP - Donald ZARCO 10/13/23 Cindy Collado NP [address] [place] [address] Nurse Practitioner Family Medicine 10/03/23 Aime Walls DO [address] [place] [address] Otolaryngology 12/02/23 Nozzleman Relationship Specialty Start Date End Date Shaikh Day MD [address] [place] [address] PCP - Donald ZARCO 10/13/23 Unallocated, Olga Nichole MD [address] [place] [address] PCP - General Family Medicine 12/03/23 Cindy Collado NP [address] [place] [address] Nurse Practitioner Family Medicine 10/03/23 Aime Walls DO [address] [place] [address] Otolaryngology 12/02/23 Nakul Zazueta DO [address] [address] Referring Physician Neurology 12/09/23 Ynes Snyder NP [address] [address] Nurse Practitioner Neurology 12/09/23 Jameson Ceballos NP [address] [address] Nurse Practitioner Neurology 12/09/23 Team Status: Inactive Member Role Status Dates Shaikh Barb MD Primary Care Provider Active Start: December 12, 2023 End: December 12, 2023 Aime Walls DO Attending Provider Active S tart: December 12, 2023 End: December 12, 2023 Nozzleman Relationship Specialty Start Date End Date Gerry Godwin MD [address] [place] [address] PCP - General Family Medicine 10/03/23 Cindy Collado NP [address] [place] [address] Nurse Practitioner Family Medicine 10/03/23 Nozzleman Relationship Specialty Start Date End Date Gerry Godwin MD [address] [place] [address] PCP - General Family Medicine 10/03/23 Cindy Collado NP [address] [place] [address] Nurse Practitioner Family Medicine 10/03/23 Nozzleman Relationship Specialty Start Date End Date Gerry Godwin MD [address] [place] [address] PCP - General Family Medicine 10/03/23 Cindy Collado NP [address] [place] [address] Nurse Practitioner Family Medicine 10/03/23 Nozzleman Relationship Specialty Start Date End Date Shaikh Day MD [address] [place] [address] PCP - Donald ZARCO 10/13/23 Gerry Godwin MD [address] [place] [address] PCP - General Family Medicine 12/12/23 Cindy Collado, [employer] [address] [place] [address] Nurse Practitioner Family Medicine 10/03/23 Aime Walls DO [address] [place] [address] Otolaryngology 12/02/23 Nakul Zazueta DO [address] [address] Referring Physician Neurology 12/09/23 Ynes Snyder NP [address] [address] Nurse Practitioner Neurology 12/09/23 Jameson Ceballos NP [address] [address] Nurse Practitioner Neurology 12/09/23 Nozzleman Relationship Specialty Start Date End Date Shaikh Day MD [address] [place] [address] PCP - Donald ZARCO 10/13/23 Gerry Godwin MD [address] [place] [address] PCP - General Family Medicine 12/12/23 Cindy Collado, [employer] [address] [place] [address] Nurse Practitioner Family Medicine 10/03/23 Aime Walls DO [address] [place] [address] Otolaryngology 12/02/23 Nakul Zazueta DO [address] [place] [address] Referring Physician Neurology 12/09/23 Ynes Snyder NP [address] [address] Nurse Practitioner Neurology 12/09/23 Jameson Ceballos NP [address] [address] Nurse Practitioner Neurology 12/09/23 Nozzleman Relationship Specialty Start Date End Date Shaikh Day MD [address] [place] [address] PCP - Donald ZARCO 10/13/23 Gerry Godwin MD [address] [place] [address] PCP - General Family Medicine 12/12/23 Cindy Collado, [employer] [address] [place] [address] Nurse Practitioner Family Medicine 10/03/23 Aime Walls DO [address] [place] [place] [address] Otolaryngology 12/02/23 Nakul Zazueta DO [address] [phone] Referring Physician Neurology 12/09/23 Ynes Snyder, SANDRA [address] [phone] Nurse Practitioner Neurology 12/09/23 Jameson Ceballos NP [address] [address] Nurse Practitioner Neurology 12/09/23 Milton Piña MA Family Medicine 01/21/24 Nozzleman Relationship Specialty Start Date End Date Shaikh Day MD [address] [place] [address] [facility] 10/13/23 Gerry Godwin MD [address] [place] [address] PCP - General Family Medicine 12/12/23 Cindy Collado NP [address] [place] [address] Nurse Practitioner Family Medicine 10/03/23 Aime Walls, DO [address] [place] [address] Otolaryngology 12/02/23 Nakul Zazueta DO [address] [place] [address] Referring Physician Neurology 12/09/23 Ynes Snyder NP 703 [facility] [address] [place] [address] Nurse Practitioner Neurology 12/09/23 Jameson Ceballos NP [address] [place] [address] Nurse Practitioner Neurology 12/09/23 Milton Piña MA Family Medicine 01/21/24 Nozzleman Relationship Specialty Start Date End Date Gerry Godwin MD [address] [place] [address] PCP - General Family Medicine 10/03/23 Cindy Collado NP [address] [place] [address] Nurse Practitioner Family Medicine 10/03/23 Nozzleman Relationship Specialty Start Date End Date Gerry Godwin MD [address] [place] [address] PCP - General Family Medicine 10/03/23 Cindy Collado NP [address] [place] [address] Nurse Practitioner Family Medicine 10/03/23 Nozzleman Relationship Specialty Start Date End Date Gerry Gowdin MD [address] [place] [address] PCP - General Family Medicine 10/03/23 Cindy Collado NP [address] [place] [address] Nurse Practitioner Family Medicine 10/03/23 Team Status: Inactive Member Role Status Dates Shaikh Barb MD Primary Care Provider Active Start: February 20, 2024 End: February 20, 2024 Denver Juarez MD Attending Provider Active Start: February 20, 2024 End: February 20, 2024 Nozzleman Relationship Specialty Start Date End Date Shaikh Day MD [address] [place] [address] PCP - Olmitz MA 10/13/23 Gerry Godwin MD [address] [place] [address] PCP - General Family Medicine 12/12/23 Cindy Collado NP [address] [place] [address] Nurse Practitioner Family Medicine 10/03/23 Aime Walls DO [address] [place] [address] Otolaryngology 12/02/23 Nakul Zazueta DO [address] [address] Referring Physician Neurology 12/09/23 Ynes Snyder NP [address] [address] Nurse Practitioner Neurology 12/09/23 Jameson Ceballos NP [address] [address] Nurse Practitioner Neurology 12/09/23 Milton Piña MA Family Medicine 01/21/24 Nozzleman Relationship Specialty Start Date End Date Gerry Godwin MD [address] [place] [facility] [address] PCP - General Family Medicine 04/07/18 Nozzleman Relationship Specialty Start Date End Date Gerry Godwin MD [address] [place] [facility] [place] [address] PCP - General Family Medicine 04/07/18 Nozzleman Relationship Specialty Start Date End Date Gerry Godwin MD [address] [place] [facility] [place] [address] PCP - General Family Medicine 04/07/18 Nozzleman Relationship Specialty Start Date End Date Gerry Godwin MD [address] [place] [facility] [place] [address] PCP - General Family Medicine 04/07/18 Nozzleman Relationship Specialty Start Date End Date Gerry Godwin MD [address] [place] [facility] [place] [address] PCP - General Family Medicine 04/07/18 Nozzleman Relationship Specialty Start Date End Date Gerry Godwin MD [address] [place] [facility] [place] [address] PCP - General Family Medicine 04/07/18 Nozzleman Relationship Specialty Start Date End Date Gerry Godwin MD [address] [place], [place] [address] PCP - General Family Medicine 04/07/18 Nozzleman Relationship Specialty Start Date End Date Gerry Godwin MD [address] [place] [address] PCP - General Family Medicine 04/07/18 Nozzleman Relationship Specialty Start Date End Date Gerry Godwin MD [address] [place] [address] PCP - General Family Medicine 12/12/23 Cindy Collado NP [address] [place] [address] [facility] 03/14/24 Cindy Collado NP [address] [place] [address] Nurse Practitioner Family Medicine 10/03/23 Aime Walls DO [address] [place] [address] Otolaryngology 12/02/23 Nakul Zazueta DO [address] [address] Referring Physician Neurology 12/09/23 Ynes Snyder NP [address] [address] Nurse Practitioner Neurology 12/09/23 Jameson Ceballos, SANDRA [address] [place] [address] Nurse Practitioner Neurology 12/09/23 Milton Piña MA Family Medicine 01/21/24 Nozzleman Relationship Specialty Start Date End Date Gerry Godwin MD [address] [place] [address] PCP - General Family Medicine 12/12/23 Cindy Collado NP [address] [place] [address] [facility] 03/14/24 Cindy Collado NP [address] [place] [address] Nurse Practitioner Family Medicine 10/03/23 Aime Walls DO [address] [place] [address] Otolaryngology 12/02/23 Nakul Zazueta DO [address] [place] [address] Referring Physician Neurology 12/09/23 Ynes Snyder NP [address] [place] [address] Nurse Practitioner Neurology 12/09/23 Jameson Ceballos NP [address] [place] [address] Nurse Practitioner Neurology 12/09/23 Milton Piña MA Family Medicine 01/21/24 Nozzleman Relationship Specialty Start Date End Date Gerry Godwin MD [address] [place] [address] PCP - General Family Medicine 12/12/23 Gerry Godwin MD [address] [place] [address] PCP - Donald ZARCO 04/11/24 Cindy Collado NP [address] [place] [address] Nurse Practitioner Family Medicine 10/03/23 Aime Walls DO [address] [place] [address] Otolaryngology 12/02/23 Nakul Zazueta DO [address] [place] [address] Referring Physician Neurology 12/09/23 Ynes Snyder, SANDRA [address] [place] [address] Nurse Practitioner Neurology 12/09/23 Jameson Ceballos NP [address] [address] Nurse Practitioner Neurology 12/09/23 Milton Piña MA [facility] Medicine 01/21/24 Nozzleman Relationship Specialty Start Date End Date Gerry Godwin MD [address] [place] [address] PCP - General Family Medicine 12/12/23 Gerry Godwin MD [address] [place] [address] PCP - Donald ZARCO 04/11/24 Cindy Collado NP [address] [place] [address] Nurse Practitioner Family Medicine 10/03/23 Aime Walls DO [address] [place] [address] Otolaryngology 12/02/23 Nakul Zazueta DO [address] [address] Referring Physician Neurology 12/09/23 Ynes Snyder NP [address] [address] Nurse Practitioner Neurology 12/09/23 Jameson Ceballos NP [address] [address] Nurse Practitioner Neurology 12/09/23 Milton Piña MA Family Medicine 01/21/24 Nozzleman Relationship Specialty Start Date End Date Gerry Godwin MD [address] [place] [address] PCP - General Family Medicine 12/12/23 Gerry Godwin MD [address] [place] [address] PCP - Donald ZARCO 04/11/24 Cindy Collado, [employer] [address] [place] [address] Nurse Practitioner Family Medicine 10/03/23 Aime Walls DO [address] [place] [address] Otolaryngology 12/02/23 Nakul Zazueta DO [address] [address] Referring Physician Neurology 12/09/23 Ynes Snyder NP [address] [address] Nurse Practitioner Neurology 12/09/23 Jameson Ceballos NP [address] [address] Nurse Practitioner Neurology 12/09/23 Milton Piña MA Family Medicine 01/21/24 Nozzleman Relationship Specialty Start Date End Date Gerry Godwin MD [address] [place] [address] PCP - General Family Medicine 12/12/23 Gerry Godwin MD [address] [place] [address] PCP - Donald ZARCO 04/11/24 Cindy Collado, [employer] [address] [place] [address] Nurse Practitioner Family Medicine 10/03/23 Aime Walls DO [address] [place] [address] Otolaryngology 12/02/23 Nakul Zazueta DO [address] [address] Referring Physician Neurology 12/09/23 Ynes Snyder NP [address] [address] Nurse Practitioner Neurology 12/09/23 Jameson Ceballos NP [address] [address] Nurse Practitioner Neurology 12/09/23 Milton Piña MA Family Medicine 01/21/24 Nozzleman Relationship Specialty Start Date End Date Gerry Godwin MD [address] [place] [address] PCP - General Family Medicine 12/12/23 Gerry Godwin MD [address] [place] [address] PCP - Donald ZARCO 04/11/24 Cindy Collado NP [address] [place] [address] Nurse Practitioner Family Medicine 10/03/23 Aime Walls DO [address] [place] [address] Otolaryngology 12/02/23 Nakul Zazueta DO [address] [address] Referring Physician Neurology 12/09/23 Ynes Snyder NP [address] [place] [address] Nurse Practitioner Neurology 12/09/23 Jameson Ceballos NP [address] [address] Nurse Practitioner Neurology 12/09/23 Milton Piña MA Family Medicine 01/21/24 Nozzleman Relationship Specialty Start Date End Date Gerry Godwin MD [address] [place] [address] PCP - General Family Medicine 12/12/23 Gerry Godwin MD [address] [place] [address] [facility] 04/11/24 Cindy Collado NP [address] [place] [address] Nurse Practitioner Family Medicine 10/03/23 Aime Walls DO [address] [place] [address] Otolaryngology 12/02/23 Nakul Zazueta DO [address] [place] [address] Referring Physician Neurology 12/09/23 Ynes Snyder, SANDRA [address] [address] Nurse Practitioner Neurology 12/09/23 Jameson Ceballos NP [address] [address] Nurse Practitioner Neurology 12/09/23 Milton Piña MA Family Medicine 01/21/24 Nozzleman Relationship Specialty Start Date End Date Gerry Godwin MD [address] [place] [place] [address] PCP - General Family Medicine 12/12/23 Gerry Godwin MD [address] [place] [address] [facility] 04/11/24 Cindy Collado NP [address] [place] [address] Nurse Practitioner Family Medicine 10/03/23 Aime Walls DO [address] [place] [address] Otolaryngology 12/02/23 Nakul Zazueta DO [address] [address] Referring Physician Neurology 12/09/23 Ynes Snyder, SANRDA [address] [address] Nurse Practitioner Neurology 12/09/23 Jameson Ceballos, SANDRA [address] [address] Nurse Practitioner Neurology 12/09/23 Milton Piña MA Family Medicine 01/21/24 Nozzleman Relationship Specialty Start Date End Date Gerry Godwin MD [address] [place] [address] PCP - General Family Medicine 12/12/23 Cindy Collado NP [address] [place] [address] Nurse Practitioner Family Medicine 10/03/23 Aime Walls DO [address] [place] [address] Otolaryngology 12/02/23 Nakul Zazueta DO [address] [address] Referring Physician Neurology 12/09/23 Ynes Snyder NP [address] [address] Nurse Practitioner Neurology 12/09/23 Jameson Ceballos NP [address] [address] Nurse Practitioner Neurology 12/09/23 Milton Piña MA Family Medicine 01/21/24 Nozzleman Relationship Specialty Start Date End Date Gerry Godwin MD [address] [place] [address] PCP - General Family Medicine 12/12/23 Cindy Collado, [employer] [address] [place] [address] Nurse Practitioner Family Medicine 10/03/23 Aime Walls, DO [address] [place] [address] Otolaryngology 12/02/23 Nakul Zazueta DO [address] [address] Referring Physician Neurology 12/09/23 Ynes Snyder NP [address] [address] Nurse Practitioner Neurology 12/09/23 Jameson Ceballos NP [address] [address] Nurse Practitioner Neurology 12/09/23 Milton Piña MA Family Medicine 01/21/24 Nozzleman Relationship Specialty Start Date End Date Gerry Godwin MD [address] [place] [address] PCP - General Family Medicine 12/12/23 Cindy Collado, SANDRA [address] [place] [address] Nurse Practitioner Family Medicine 10/03/23 Aime Walls, [address] [place] [address] Otolaryngology 12/02/23 Nakul Zazueta DO [address] [address] Referring Physician Neurology 12/09/23 Ynes Snyder, SANDRA [address] [place] [address] Nurse Practitioner Neurology 12/09/23 Jameson Ceballos NP [address] [place] [address] Nurse Practitioner Neurology 12/09/23 Milton Piña MA Family Medicine 01/21/24 Nozzleman Relationship Specialty Start Date End Date Gerry Godwin MD [address] [place] [address] PCP - General Family Medicine 12/12/23 Cindy Collado NP [address] [place] [address] Nurse Practitioner Family Medicine 10/03/23 Aime Walls DO [address] [place] [address] Otolaryngology 12/02/23 Nakul Zazueta DO [address] [address] Referring Physician Neurology 12/09/23 Ynes Snyder, SANDRA [address] [place] [address] Nurse Practitioner Neurology 12/09/23 Jameson Ceballos NP [address] [address] Nurse Practitioner Neurology 12/09/23 Milton Piña MA Family Medicine 01/21/24 Goals (unrecognized section and content) Goals may [...] BE BASED ON THE PRIMARY CLINICAL RECORDS. [facility]. provides no warranty or guarantee of the accuracy or completeness of information in this document.
--- NOTE | 2024-08-10 13:17 | PM.STRESS ---
Stress Test Stress Test Allergies Allergy/AdvReac Type Severity Reaction Status Date / Time Penicillins AdvReac Severe itch Verified 10/20/22 13:38 Requesting physician: NICOLAS SALVADOR Procedure: This was a Lexiscan stress test with myocardial perfusion imaging performed at the [facility] on 08/06/2024. Intravenous line was secured. The patient was attached to electrocardiographic monitoring. Baseline vital signs and ECG were obtained. Lexiscan 0.4 mg was administered intravenously followed by administration of Cardiolite. The patient then went on to obtain myocardial perfusion imaging. Resting heart rate was 63 bpm and peak heart rate was 90 bpm. Resting blood pressure was 130/74 and peak blood pressure was 134/72. General Information: Reason for Stress Test: Chest pain, shortness of breath. Cardiac History and Risk Factors: Hypertension, hyperlipidemia, CVA. Resting 12 - Lead Electrocardiogram: Sinus rhythm with no ischemic changes. Stress Test: Protocol: Pharmacologic stress with Lexiscan. Exercise Capacity: Not assessed. Blood Pressure Response: Elevated blood pressure. Rhythm: Sinus with no arrhythmia. ST - Response: No ischemic ST changes. Patient Response: No chest pain and no shortness of breath. Chest heaviness resolved in 3 minutes. Interpretation: 1. No evidence of ischemic ECG changes seen following infusion of Lexiscan. 2. Myocardial perfusion images will be reported separately.
== END 2024-08-06 07:27 | disposition home or self-care (01) ==
LOC: NM 07:26
PROVIDERS: PCP Nurse Practitioner; Visit Provider Internal Medicine Interventional Cardiology
DX: R06.02 Shortness of breath (principal); I25.118 Atherosclerotic heart disease of native coronary artery with other forms of angina pectoris

== ENCOUNTER 2024-08-10 07:34 | Outpatient (OUT) | payer MEDICARE, SELFPAY ==
--- NOTE | 2024-08-10 | NM_ITS ---
Patient Name: FITZ GIFFORD MR#: [id number] : 1950 Exam Date: 08/10/2024 Ordering Doctor: DR NICOLAS SALVADOR M.D. RADIOLOGY REPORT PROCEDURE: NM MITZI PERF SPECT REST STR COMPARISON: None. INDICATIONS: CORONARY ARTERY DISEASE, SHORTNESS OF BREATH TECHNIQUE: Exam Description: Stress/Rest one day protocol gated SPECT Rest Imagin.8 mCi Tc-99m Cardiolite IV on 08/10/2024 Stress Imaging 31.2 mCi Tc-99m Cardiolite IV on 08/10/2024 Exercise Protocol: 0.4 mg Lexiscan given IV Heart Rate (bpm): Rest: 63 Max: 90 PMHR: 62 Blood Pressure: Rest: 130/74 Max: 134/72 Symptoms: Rest and peak stress ECG findings were pending and the EKG portion of the study was pending per attending physician [facility] . For more details please see separate cardiac stress test report. FINDINGS: QUALITY OF STUDY: Good PERFUSION DEFECT: None LOCATION: SIZE: SEVERITY: TYPE: WALL MOTION: Global normal LV SIZE: 47 mL. TID / TCD: 0.9 LVEF: Calculated EF 82%. SUMMARY: Normal myocardial perfusion imaging study CONCLUSION: Normal myocardial perfusion stress images without evidence of ischemia or infarction Normal left ventricle systolic function, ejection fraction 82% No transient ischemic dilatation, TID 0.9 EKG portion of stress test is reported separately Dictated by: Sanchez Delgado MD on 08/11/2024 at 13:48 Approved by: Sanchez Delgado MD on 08/11/2024 at 13:51
--- NOTE | 2024-08-10 09:46 | PC.NURSE ---
Nursing Note Cardiac Stress Test Reviewed: Medication, allergies and patient history reviewed. Stress Test: [x ] Patient tolerated stress test well. [ ] Patient unable to tolerate walking on treadmill. Switched to Lexiscan stress test. [x ] No chest pain noted per patient [ ] Chest pain that resolved prior to leaving stress lab. [x ] No dyspnea noted. [ ] Dyspnea that resolved prior to leaving stress lab. [x ] Patient left stress lab asymptomatic and hemodynamically stable. [ ] Patient taken to the Emergency Room due to non-resolving symptoms following stress test. [ ] Patient achieved target heart rate. [ ] Patient unable to achieve target heart rate. [ ] Aminophylline administered as reversal agent to Lexiscan (Regadenoson). [ ] Nitro administered. Nursing Comments:Pt had Lexiscan test done and tolerated well. No symptoms reported by pt. Pt was taken to cafeteria for breakfast prior to second set of images.
[2024-08-10] MEDS: REGADENOSON 0.4 MG/5 ML SYRINGE IV (09:49)
== END 2024-08-10 07:35 | disposition home or self-care (01) ==
LOC: NM 07:35
PROVIDERS: PCP Nurse Practitioner; Visit Provider Internal Medicine Interventional Cardiology
DX: I25.118 Atherosclerotic heart disease of native coronary artery with other forms of angina pectoris (principal); R06.02 Shortness of breath
CPT/HCPCS: 78452; 93017; A9500; J2785

== ENCOUNTER 2024-08-20 09:59 | Outpatient (OUT) | payer MEDICARE, SELFPAY ==
--- OUTSIDE RECORDS SUMMARY | 2024-08-11 09:00 | XMS_ITS | Encounter Summary ---
Author Organization [facility] Address [address] [place] [address] Care Team Providers Care Electrician Third Name Role Phone Aleena Collado ARMORED CAR GUARD AND DRIVER Unavailable [phone] Obed Walls DO Unavailable [phone] Vish Zazueta DO Unavailable Ynes Snyder NP Unavailable [phone] Jessica Ceballos NP Unavailable Unavailable Gerry Godwin MD Primary Care Provider [phone] Milton Piña MA Unavailable [phone] Gerry Godwin MD Unavailable Reason for Visit * Reason Comments Hypertension Encounter Details Date Type Department Care Team (Late st Contact Info) Description 08/11/2024 9:00 AM EDT Office Visit [facility] [address] [place] [phone] Aleena Collado NP [address] [place] [address] Primary hypertension (Primary Dx); Atherosclerosis of coronary artery of [place] heart, unspecified vessel or lesion type, unspecified whether angina present ; CRYSTAL (generalized anxiety disorder) ; Recurrent major depressive disorder, in full remission ; Episode of recurrent major depressive disorder, unspecified depression episode severity ; Overflow incontinence of urine; Psychophysiological insomnia Social History Tobacco Use Types Packs/Day Years [...] week 01/27/2024 How often do you attend religion or christian serv ices? Never 01/27/2024 Do you belong to any clubs o r organizations such as religion groups, unions, fraternal or athletic groups, or [...] Recorded Patient Health Questionnaire-2 Score 0 09/09/2023 [facility] Occupat ional [facility] [...] any time in the past 12 m [facility], were you homeless or living in a halfway (including now)? No 01/27/2024 Comments Unknown Sex and Gender Information Value Date Recorded Sex Assigned at Not on file Legal Sex Female 6:38 PM EDT Gender Identity Not on file Sexual Orientation Not on file documented as of this encounter Last Filed Vital Signs Vital Sign Reading Time Taken Comments Blood Pressure 106/66 08/11/2024 9:10 AM EDT Pulse 58 08/11/2024 9:10 AM EDT Temperature 36.6 C (97.8 F) 08/11/2024 9:10 AM EDT Respiratory Rate 19 08/11/2024 9:10 AM EDT Oxygen Saturation 97% 08/11/2024 9:10 AM EDT Inhaled Oxygen Concentration - - Weight 72 kg (158 lb 12.8 oz) 08/11/2024 9:10 AM EDT Height - - Body Mass Index 30 01/21/2024 9:55 AM EST documented in this encounter Progress Notes * Aleena Collado NP - 08/11/2024 5:55 PM EDTAssociated Problem(s): Psychophysiological insomnia At this point I will reach out to neurology for help with this Letter to follow * Aleena Collado NP - 08/11/2024 5:54 PM EDTAssociated Problem(s): Overflow incontinence of urine Continue with urology * Aleena Collado NP - 08/11/2024 9:00 AM EDT Images from the original note were not included. Ozzie Luna is a 74 y.o. female presents with chief complaint of Hypertension HPI: Here for a check up. Since last visit has still been seeing neurology, as well as has had neuropscyh testing, and also saw cardiology had stress test and also going to have an echo. Her primary complaint today is lack of sleep. She presents with her , he states she gets a few hours of sleep per night. He does not noted loud snoring with apnea periods, she does occ snore if she is in a goodsleep. Both she and her feel that her poor sleep quality does lead to many of her other issues. Including not eating well. She eats a decent breakfast, and when she is making dinner for them,often times becomes too tired after doing this that she then goes to sleep and does not end up eating. SUBJECTIVE: MEDICATIONS: Current Outpatient Medications Medication Instructions amLODIPine (NORVASC) 2.5 mg, Oral, Daily ascorbic acid (VITAMIN C) 500 mg, Daily Aspirin Low Dose 81 mg, Daily baclofen (Lioresal) 20 MG tablet Take 1 tablet (20 mg) by mouth in the morning and 1 tablet (20 mg)in the evening and 1 tablet (20 mg) before bedtime. cetirizine (ZyrTEC) 10 MG tablet Take by mouth clonazePAM (KLONOPIN) 0.5 mg, Oral, 2 times daily D-Mannose 500 mg, Daily estradiol (Estrace) 0.1 MG/GM vaginal cream apply a pea-sized amount vaginally and around the urethra NIGHTLY TIME 3 (THREE) weeks, then 3 (THREE) times per week thereafter furosemide (LASIX) 20 mg, Daily methenamine hippurate (HIPREX) 1 g, 2 times daily metoprolol succinate XL (TOPROL-XL) 25 mg, Oral, Daily, Do not crush or chew Probiotic Product (PROBIOTIC/PREBIOTIC/CRANBERRY PO) 60 mg, Daily QUEtiapine (SEROQUEL) 50 mg, Oral, Nightly rosuvastatin (CRESTOR) 20 mg, Oral, Nightly topiramate 50 mg, Oral, Nightly trospium (SANCTURA XR) 60 mg, Every morning ALLERGIES: Allergies Allergen Reactions Penicillin G Unknown [...] Negative for difficulty urinating, dysuria and frequency. Urine incontinence Wears brief Musculoskeletal: Negative for arthralgias, back pain, joint swelling and myalgias. Skin: Negative for rash and wound. Neurological: Positive for dizziness and tremors. Negative for seizures, syncope and headaches. Psychiatric/Behavioral: Negative for behavioral problems, self-injury and suicidal ideas. The patient is nervous/anxious. Depression Hematological: Does not bruise/bleed easily. Endocrine: Negative for polydipsia, polyphagia and polyuria. Allergic/Immunologic: Negative for environmental allergies and food allergies. PAST MEDICAL HISTORY Past Medical History: Diagnosis Date Arthritis Chronic back pain Depression Disturbance of skin sensation 12/02/2015 HTN (hypertension) Muscle spasm 12/02/2015 Myoclonus 12/02/2015 Obesity Past [...] in her mother. OBJECTIVE: Visit Vitals BP 106/66 (BP Location: Left arm, Patient Position: Sitting, BP Cuff Size: Adult long) Pulse 58 Temp 97.8 ??F (Temporal) Resp 19 Wt 158 lb 12.8 oz SpO2 97% BMI 30.00 kg/m?? Smoking Status Former BSA 1.76 m?? Physical Exam Vitals and nursing note reviewed. [...] Normal pulses. Heart sounds: Normal heart sounds. No murmur heard. Pulmonary: Effort: Pulmonary effort is normal. Breath [...] and oriented to person, place, and time. Comments: Difficulty with speech Psychiatric: Mood and Affect: Mood normal. Behavior: Behavior normal. Thought Content: Thought content normal. Judgment: Judgment normal. ASSESSMENT AND PLAN: No follow-ups on file. Problem List Items Addressed This Visit Coronary atherosclerosis Continue with cardiology, swelling in legs ??heart failure related Is on statin, asa, b jimmy and amlodipine Check lipids yearly and prn dose changes Had stress test 08/10/24 Primary hypertension - Primary Please check blood pressure daily and record DASH diet Limit caffeine Take medication as directed Contact office if chest pain, pressure, dizziness, shortness of breath, swelling legs Recommend slow position changes Current meds: asa, amlodipine, metoprolol XL RESOLVED: Recurrent major depressive disorder, in full remission Overflow incontinence of urine Continue with urology CRYSTAL (generalized anxiety disorder) Has been on klonopin for some time OAR[facility] reviewed Psychophysiological insomnia At this point I will reach out to neurology for help with this Letter to follow Episode of recurrent major depressive disorder * Aleena Collado NP - 08/11/2024 7:41 AM EDTAssociated Problem(s): CRYSTAL (generalized anxiety disorder) Has been on klonopin for some time OARRS reviewed * Aleena Collado NP - 08/11/2024 7:41 AM EDTAssociated Problem(s): Coronary atherosclerosis Continue with cardiology, swelling in legs ??heart failure related Is on statin, asa, b jimmy and amlodipine Check lipids yearly and prn dose changes Had stress test 08/10/24 * Aleena Collado NP - 08/11/2024 7:41 AM EDTAssociated Problem(s): Primary hypertension Please check blood pressure daily and record DASH diet Limit caffeine Take medication as directed Contact office if chest pain, pressure, dizziness, shortness of breath, swelling legs Recommend slow position changes Current meds: asa, amlodipine, metoprolol XL documented in this encounter Plan of Treatment Upcoming Encounters Date Type Department Care Team (Late st Contact Info) Description 11/12/2024 9:40 AM EDT Office Visit [facility] [address] [place] [address] Aleena Collado NP [address] [place] [id number] documented as of this encounter Visit Diagnoses Diagnosis Primary hypertension- Primary Unspecified essential hypertension Atherosclerosis of coronary artery of [place] heart, unspecified vessel or lesion type, unspecified whether angina present CRYSTAL (generalized anxiety disorder) Generalized anxiety disorder Recurrent major depressive disorder, in full remission Episode of recurrent major depressive disorder, unspecified depression episode severity Overflow incontinence of urine Overflow incontinence Psychophysiological insomnia Persistent disorder of initiating or maintaining sleep documented in this encounter Additional Health Concerns Assessment Noted Time PHQ-9 Depression Total Score: 0 06/03/19 24 6:24 PM EDT A fall risk assessment has been complete d for the patient 01/27/2024 9:56 AM EST documented as of this encounter Care Teams Electrician Third Relationship Specialty Start Date End Date Gerry Godwin MD [address] [place] [phone] PCP - General Family Medicine 12/12/23 Gerry Godwin MD [address] [place] [address] PCP - Donald ZARCO 04/11/24 Aleena Collado NP [address] [place] [address] Nurse Practitioner Family Medicine 10/03/23 Obed Walls DO [address] [place] [address] Otolaryngology 12/02/23 Vish Zazueta DO [address] [phone] Referring Physician Neurology 12/09/23 Ynes Snydre NP [address] [place] [phone] Nurse Practitioner Neurology 12/09/23 Jessica Ceballos NP [address] [place] [phone] Nurse Practitioner Neurology 12/09/23 Milton Piña, HAROLDO [address] [place] [address] Family Medicine 01/21/24 documented as of this encounter
--- NOTE | 2024-08-20 10:00 | CA_ITS ---
Patient Name: FITZ GIFFORD MR#: [id number] : 1950 Exam Date: 08/20/2024 Ordering Doctor: DR NICOLAS SALVADOR M.D. ECHOCARDIOGRAM REPORT PROCEDURE: CA ECHO DOPPLER COMPLETE INDICATIONS: Shortness of breath, coronary artery disease COMPARISON: None. DESCRIPTION: COMPLETE ECHOCARDIOGRAM Real-time transthoracic echocardiography with 2D, M-mode, spectral and color flow Doppler performed. QUALITY: Technical quality was good. LEFT VENTRICLE: Normal chamber size. Mild concentric left ventricular hypertrophy. Normal left ventricle systolic function without wall motion abnormalities, calculated left ventricular ejection fraction is 62%. LV EF: Normal left ventricular ejection fraction, (>55%). DIASTOLIC: Normal diastolic function. ATRIAL SEPTUM: Visually appears intact. LEFT ATRIUM: Normal chamber size. RIGHT ATRIUM: Normal chamber size. RIGHT VENTRICLE: Normal chamber size. Normal right ventricular systolic function. TRICUSPID VALVE: Normal mobility and thickness. No stenosis with mild regurgitation. Doppler studies reveal mildly (35-45) elevated right sided pressures.RVSP 37 mmHg MITRAL VALVE: Normal mobility and thickness. No evidence of mitral valve stenosis. Mild mitral annular calcification. Mild mitral regurgitation. AORTIC VALVE: Normal trileaflet appearance. Normal leaflet mobility. No evidence of aortic valve stenosis. No aortic regurgitation. AORTIC ROOT: Normal diameter and appearance. PULMONIC VALVE: Normal thickness and mobility. No stenosis. No regurgitation. PERICARDIUM: No evidence of pericardial effusion. IVC: Collapes with inspirations. IVC is normal in size. PLEURA: CONCLUSION: Mild concentric left ventricular hypertrophy Normal left ventricle systolic function without wall motion abnormalities, ejection fraction 62% Normal left ventricle diastolic function Normal right ventricle size and systolic function Mildly elevated right-sided pressure, RVSP 37 mmHg Mild mitral regurgitation Mild tricuspid regurgitation Adult Echocardiography Procedure Report Left Ventricle LVEDD (3.7 - 5.6 cm): 3.51 cm LVESD (2.2 - 4.0 cm): 2.79 cm LVIVS thickness (0.6 - 1.2 cm): 1.29 cm LVPW thickness (0.5 - 1.0 cm): 1.08 cm e': 0.07 m/s E - e': 12.14 LVOT Max Gradient: 2.44 mm[Hg] LVOT Area (cm2): 0.78 m/s Peak Velocity (LVOT): 0.78 m/s Mean Velocity (LVOT): 0.60 m/s LVOT Diameter 1.97 cm Left Ventricular Ejection Fraction: 62.35 % Left Atrium LA Volume Index (2D A2C): 32.06 ml/m2 Left Atrium Systolic Dimension: 3.84 cm Mitral Valve MV E to A Ratio: 1.05 MV Max Gradient: MV Mean Gradient: Mitral Valve A-Wave Peak Velocity: 0.85 m/s Mitral Valve E-Wave Peak Velocity: 0.90 m/s Cardiovascular Orifice Area: Right Ventricle RV Internal Diastolic Dimension: Aorta AO Root Diam: 2.97 cm Ascending Ao Diam: Aortic Valve AoV Area (Peak Shen): 1.73 cm2, 1.73 cm2 AoV Area (VTI): 1.78 cm2, 1.78 cm2 Deceleration Cataño: Pressure Half-Time: Peak Velocity(Antegrade Flow): 1.37 m/s Peak Gradient(Antegrade Flow): 7.52 mm[Hg] Mean Velocity(Antegrade Flow): 1.02 m/s Mean Gradient(Antegrade Flow): 4.60 mm[Hg] Velocity Time Integral: 37.24 cm Tricuspid Valve Peak Velocity (Regurgitant Flow): 2.49 m/s, 2.93 m/s Peak Velocity: Pulmonic Valve Mean Gradient: Mean Velocity: Peak Velocity: 0.78 m/s Peak Gradient: 2.41 mm[Hg] Right Atrium Right Atrium Systolic Pressure: 17.67 ml, 17.67 ml Dictated by: Sanchez Delgado MD on 08/21/2024 at 18:22 Approved by: Sanchez Delgado MD on 08/21/2024 at 18:29
--- OUTSIDE RECORDS SUMMARY | 2024-08-20 10:01 | XMS_ITS | Encounter Summary ---
Author Organization [facility] Address [address] [place] [address] Care Team Providers Care Cdl Service Technician Name Role Phone Aleena Collado NURSERY LABORER Unavailable [phone] Obed Walls DO Unavailable Vish Zazueta DO Unavailable [phone] Ynes Snyder NURSERY LABORER Unavailable [phone] Jessica Ceballos NP Unavailable Unavailable Gerry Godwin MD Primary Care Provider Milton Piña MA Unavailable [phone] Gerry Godwin MD Unavailable Encounter Details Date Type Department Care Team (Late st Contact Info) Description 05/18/2024 Orders Only [facility] [address] [place] [address] Bernice Clemente MD [address] [place] [address] Social History Tobacco Use Types [...] week 01/27/2024 How often do you attend scientologist or confucianism serv ices? Never 01/27/2024 Do you belong to any clubs o r organizations such as scientologist groups, unions, fraternal or athletic groups, or [...] Patient Health Questionnaire-2 Score 0 09/09/2023 [facility] of Occupat ional Health - [...] time in the past 12 m [facility], were you homeless or living in a long term (including now)? No 01/27/2024 Comments Unknown Sex and Gender Information Value Date Recorded Sex Assigned at Not on file Legal Sex Female 6:38 PM EDT Gender Identity Not on file Sexual Orientation Not on file documented as of this encounter Plan of Treatment Upcoming Encounters Date Type Department Care Team (Late st Contact Info) Description 11/12/2024 9:40 AM EDT Office Visit [facility] [address] [place] [address] Aleena Collado NP [address] [place] [address] documented as of this encounter Procedures Procedure [...] documented as of this encounter Care Teams Cdl Service Technician Relationship Specialty Start Date End Date Gerry Godwin MD [address] [place] [address] PCP - General Family Medicine 12/12/23 Gerry Godwin MD [address] [place] [phone] PCP - Donald [place] 04/11/24 Aleena oCllado NP [address] [place] [phone] Nurse Practitioner Family Medicine 10/03/23 Obed Walls DO [address] [place] [address] Otolaryngology 12/02/23 Vish Zazueta DO [address] [address] Referring Physician Neurology 12/09/23 Ynes Snyder NP [address] [address] Nurse Practitioner Neurology 12/09/23 Jessica Ceballos NP [address] [address] Nurse Practitioner Neurology 12/09/23 Milton Piña MA [address] [place] [address] Family Medicine 01/21/24 documented as of this encounter
--- OUTSIDE RECORDS SUMMARY | 2024-08-20 10:01 | XMS_ITS | Encounter Summary ---
Author Organization [facility] Address [address] [place] [address] Care Team Providers Care Supervisor Claims Name Role Phone Aleena Collado MARINE DESIGN ENGINEER Unavailable [phone] Obed Walls DO Unavailable [phone] Vish Zazueta DO Unavailable [phone] Ynes Snyder NP Unavailable [phone] Jessica Ceballos NP Unavailable Unavailable Gerry Godwin MD Primary Care Provider Milton Piña MA Unavailable [phone] Gerry Godwin MD Unavailable Encounter Details Date Type Department Care Team (Late st Contact Info) Description 02/20/2024 Orders Only [facility] [address] [place] [address] Aleena Collado NP [address] [place] [address] Social History Tobacco Use Types Packs/Day Years [...] week 01/27/2024 How often do you attend jewish or taoist serv ices? Never 01/27/2024 Do you belong to any clubs o r organizations such as jewish groups, unions, fraternal or athletic groups, or [...] Recorded Patient Health Questionnaire-2 Score 0 09/09/2023 [facility] of Occupat ional Health - Occupational Stress [...] were you homeless or living in a prison (including now)? No 01/27/2024 Comments Unknown Sex [...] Visit [facility] [address] [place] [address] Aleena Collado NP [address] [place] [address] documented as of this encounter Procedures Procedure Name Priority Date/Time Associated Diagnosis Comments SCANNED LABS Routine 02/20/2024 3:13 PM EST documented in this encounter Results * SCANNED LABS (02/20/2024 3:13 PM EST) Aleena Collado MARINE DESIGN ENGINEER LAB CHG PERFORMABLES Final Resu lt documented in this encounter Visit Diagnoses Not on filedocumented in this encounter Additional Health Concerns Assessment Noted Time PHQ-9 Depression Total Score: 0 06/03/19 24 6:24 PM EDT A fall risk assessment has been complete d for the patient 01/27/2024 9:56 AM EST documented as of this encounter Care Teams Supervisor Claims Relationship Specialty Start Date End Date Gerry Godwin MD [address] [place] [address] PCP - General Family Medicine 12/12/23 Gerry Godwin MD [address] [place] [address] PCP - Donald [place] 04/11/24 Aleena Collado NP [address] [place] [address] Nurse Practitioner Family Medicine 10/03/23 Obed Walls DO [address] [place] [address] Otolaryngology 12/02/23 Vish Zazueta DO [address] [address] Referring Physician Neurology 12/09/23 Ynes Snyder NP [address] [phone] Nurse Practitioner Neurology 12/09/23 Jessica Ceballos NP [address] [address] Nurse Practitioner Neurology 12/09/23 Milton Piña, HAROLDO [address] [place] [address] Family Medicine 01/21/24 documented as of this encounter
--- OUTSIDE RECORDS SUMMARY | 2024-08-20 10:01 | XMS_ITS ---
Author Organization [facility] Address [address] [place] [address] Care Team Providers Care Last Dipper Name Role Phone Aleena Collado FOREST RANGER TECHNICIAN Unavailable [phone] Obed Walls DO Unavailable Vish Zazueta DO Unavailable Ynes Snyder FOREST RANGER TECHNICIAN Unavailable [phone] Jessica Ceballos NP Unavailable Unavailable Gerry Godwin MD Primary Care Provider [phone] Milton Piña MA Unavailable [phone] Gerry Godwin MD Unavailable Chronic Care Management (CCM) Status:Enrolled (Active) Start date:01/21/2024 Enrollment date:01/23/2024 Enrollment reason:Referred by provider Overview Please assess for Care Management needs. 01/23/24, 2:13 PM - Milton Piña MA- Patient gives verbal consent to be enrolled in CCM Program and understands there could be a bill for this service. Case Team Name Relationship Phone Milton Piña MA(Responsible Staff) [phone] Continued Care and Services Coordination
--- OUTSIDE RECORDS SUMMARY | 2024-08-20 10:01 | XMS_ITS | Clinical Summary ---
Author Organization [facility] Address [facility] [place] [address] Care Team Providers Care Flour Blender Name Role Phone Aneesh Ramirez MD Primary [...] 75+ series) 06/04/2023 Covid-19 Vaccine ( - 2023- season) 2023 Advance Directive Discussion 02/12/2024 Influenza Vaccine (#1) 2024 Medical Devices Implanted Type Area Director Loan Device Identifier Shelf Expiration Date Model / Serial / Lot Cement Bone Simplex P W/ Tobramycin 1gm - [id number] Implanted:Qty: 5 on 06/28/2009 at [facility] Cement / Putty [employer] 01/10/2011 [id number] / / [id number] Cement Restrictor Revision [place] - [id number] Implanted:Qty: 1 on 06/28/2009 at [facility] Cement / Putty [facility] [id number] / / Femur Post Aug Traith 5mm Sz 3 - [id number] Implanted:Qty: 1 on 06/28/2009 at [facility] Joint - Knee [facility] 12/08/2013 [id number] / [id number] / XSNR Restrictor Cement W/Insertor - [id number] Implanted:Qty: 1 on 06/28/2009 at [facility] Joint - Knee [facility] [id number] / / Insert Tri Tib Ps X3 Sz3 11mm - [id number] Implanted:Qty: 1 on 06/28/2009 at [facility] Joint - Knee Right: Bone - Knee [facility] 03/06/2014 [id number] / / [id number] Insert Tri Tib Ps X3 Sz3 13mm - [id number] Implanted:Qty: 1 on 06/28/2009 at [facility] Joint - Knee Right: Bone - Knee [facility] 11/11/2013 [id number] / / [id number] Stabilizer Femur Comp Rt Sz 3 - [id number] Implanted:Qty: 1 on 06/28/2009 at [facility] Joint - Knee [facility] 03/10/2014 [id number] / [id number] / XTIX Stem Triath Cemented 15x50 - [id number] Implanted:Qty: 1 on 06/28/2009 at [facility] Joint - Knee [facility] 04/25/2014 [id number] / [id number] / [id number] Stem Triathlon Cement 12q05ns - [id number] Implanted:Qty: 1 on 06/28/2009 at [facility] Joint - Knee [facility] 05/08/2014 [id number] / [id number] / [id number] Femur Post Aug Traith 5mm Sz 3 - [id number] Implanted:Qty: 1 on 06/28/2009 at [facility] Joint - Knee [facility] 12/08/2013 [id number] / [id number] / XTAY Femur Distal Aug Rt 15mm Sz 4 - [id number] Implanted:Qty: 1 on 06/28/2009 at [facility] Joint - Knee [facility] 01/14/2012 [id number] / [id number] / WPOC Femur Distal Aug Rt 15mm Sz 4 - [id number] Implanted:Qty: 1 on 06/28/2009 at [facility] Joint Knee [facility] 10/06/2012 [id number] / [id number] / XWDF Baseplate Triathlon Ts Sz3 - [id number] Implanted:Qty: 1 on 06/28/2009 at [facility] Plate [facility] 04/17/2014 [id number] / [id number] / ARYG Procedures Procedure Name Priority Date/Time Associated Diagnosis Comments BASIC METABOLIC PANEL Routine 06/29/2009 12:47 AM EDT from Last 3 Months or Most Recently Relevant to Health Maintenance Results * (ABNORMAL) BASIC METABOLIC PNL (06/29/2009 12:47 AM EDT) Glucose 107(H) 65 - 100 mg/dL [facility] BUN 14 8 - 25 mg/dL [facility] Creatinine 0.53(L) 0.70 - 1.40 mg/dL [facility] Sodium 140 132 - 148 mmol/L [facility] Potassium 4.0 3.5 - 5.0 mmol/L [facility] Chloride 108 98 - 110 mmol/L [facility] CO2 22(L) 23 - 32 mmol/L [facility] Anion Gap 10 0 - 15 mmol/L [facility] Calcium 7.6(L) 8.5 - 10.5 mg/dL [facility] Blood specimen (specimen) BLOOD SPECIMEN / Unknown 06/29/2009 12:47 AM EDT Jimy Wan MD LABORATORY Final Result [facility] [address] [place] [address] from Last 3 Months or Most Recently Relevant to Health Maintenance Care Teams Flour Blender Relationship Specialty Start Date End Date Aneesh Ramirez MD [address] [place] [id number] PCP - General 07/24/07
--- OUTSIDE RECORDS SUMMARY | 2024-08-20 10:01 | XMS_ITS | Encounter Summary ---
Author Organization [facility] Address [address] [place] [address] Care Team Providers Care Electric Motorman Name Role Phone Shaikh PEEWEE Day Primary Care Provider [phone] Shaikh PEEWEE Day Primary Care Provider [phone] Aleena Collado DEVELOPMENT TECHNICAL LEAD Unavailable [phone] Gerry Godwin MD Primary Care Provider [phone] Shaikh PEEWEE Day Unavailable [phone] Obed Walls Tye DO Unavailable Unallocated, Noms Provider Primary Care Provi neftali Vish Zazueta DO Unavailable Ynes Snyder DEVELOPMENT TECHNICAL LEAD Unavailable [phone] Jessica Ceballos DEVELOPMENT TECHNICAL LEAD Unavailable Unavailable Gerry Godwin MD Primary Care Provider [phone] Milton Piña MA Unavailable Gerry Godwin MD Unavailable Encounter Details Date Type Department Care Team (Late st Contact Info) Description 03/18/2023 Orders Only [facility] [address] [place] [address] Shaikh Day MD [address] [place] [address] Social History Tobacco Use Types Packs/Day Years [...] Visit [facility] [address] [place] [address] Aleena Collado NP [address] [place] [address] documented as of this encounter Procedures [...] on filedocumented in this encounter Care Teams Electric Motorman Relationship Specialty Start Date End Date Shaikh aDy MD PCP - General Internal Medicine 08/30/22 05/14/23 Shaikh Day MD [address] [place] [address] PCP - General Internal Medicine 05/15/23 10/02/23 Gerry Godwin MD [address] [place] [address] PCP - General Family Medicine 10/03/23 12/02/23 Shaikh Day MD [address] [place] [address] PCP - Donald ZARCO 10/13/23 02/11/24 Unallocated, Kristi Nichole MD [address] [place], [place] [address] PCP - General Family Medicine 12/03/23 12/11/23 Gerry Godwin MD [address] [place] [address] PCP - General Family Medicine 12/12/23 Gerry Godwin MD [address] [address] PCP - Donald ZARCO 04/11/24 Aleena Collado NP [address] [place] [address] Nurse Practitioner Family Medicine 10/03/23 Obed Walls DO [address] [place] [address] Otolaryngology 12/02/23 Vish Zazueta DO [address] [address] Referring Physician Neurology 12/09/23 Ynes Snyder NP [address] [address] Nurse Practitioner Neurology 12/09/23 Jessica Ceballos NP [address] [address] Nurse Practitioner Neurology 12/09/23 Milton Piña, HAROLDO [address] [place] [address] Family Medicine 01/21/24 documented as of this encounter
--- OUTSIDE RECORDS SUMMARY | 2024-08-20 10:01 | XMS_ITS | Encounter Summary ---
Author Organization [facility] Address [address] [place] [address] Care Team Providers Care Jackscrew Man Name Role Phone Aleena Collado HEDGE FUND ACCOUNTANT Unavailable [phone] Obed Walls DO Unavailable Vish Zazueta DO Unavailable [phone] Ynes Snyder HEDGE FUND ACCOUNTANT Unavailable [phone] Jessica Ceballos NP Unavailable Unavailable Gerry Godwin MD Primary Care Provider [phone] Milton Piña MA Unavailable [phone] Gerry Godwin MD Unavailable Encounter Details Date Type Department Care Team (Late st Contact Info) Description 05/11/2024 Orders Only [facility] [address] [place] [address] Bernice Clemente MD [address] [place] [address] Social History Tobacco Use Types [...] How often do you attend baptist or restorationist serv ices? Never 01/27/2024 Do you belong [...] Recorded Patient Health Questionnaire-2 Score 0 09/09/2023 [facility] Occupat ional Health - Occupational Stress [...] time in the past 12 m [facility], were you homeless or living in a long-term (including now)? No 01/27/2024 Comments Unknown Sex [...] Visit [facility] [address] [place] [address] Aleena Collado NP [address] [place] [address] documented as of this encounter Procedures Procedure [...] documented as of this encounter Care Teams Jackscrew Man Relationship Specialty Start Date End Date Gerry Godwin MD [address] [place] [address] PCP - General Family Medicine 12/12/23 Gerry Godwin MD [address] [place] [address] PCP - Donald CA 04/11/24 Aleena Collado NP [address] [place] [address] Nurse Practitioner Family Medicine 10/03/23 Obed Walls DO [address] [place] [address] Otolaryngology 12/02/23 Vish Zazueta DO [address] [address] Referring Physician Neurology 12/09/23 Ynes Snyder NP [address] [address] Nurse Practitioner Neurology 12/09/23 Jessica Ceballos NP [address] [address] Nurse Practitioner Neurology 12/09/23 Milton Piña MA [address] [place] [address] Family Medicine 01/21/24 documented as of this encounter
--- OUTSIDE RECORDS SUMMARY | 2024-08-20 10:01 | XMS_ITS | Encounter Summary ---
Author Organization [facility] Address [address] [place] [address] Care Team Providers Care Duplicating Machine Servicer Name Role Phone Shaikh PEEWEE Day Primary Care Provider [phone] Shaikh PEEWEE Day Primary Care Provider [phone] Aleena Collado DIE SINKER Unavailable [phone] Gerry Godwin MD Primary Care Provider [phone] Shaikh PEEWEE Day Unavailable [phone] Obed Walls W DO Unavailable Unallocated, Noms Provider Primary Care Provi neftali Vish Zazueta DO Unavailable Ynes Snyder DIE SINKER Unavailable [phone] Jessica Ceballos DIE SINKER Unavailable Unavailable Gerry Godwin MD Primary Care Provider [phone] Milton Piña MA Unavailable [phone] Gerry Godwin MD Unavailable Reason for Visit * Reason Comments Med Refill Encounter Details Date Type Department Care Team (Late st Contact Info) Description 05/03/2023 Refill [facility] [address] [place] [address] Shaikh Day MD [address] [place] [address] Iron deficiency Social History Tobacco Use Types [...] Visit [facility] [address] [place] [address] Aleena Collado DIE SINKER [address] [place] [address] documented as of this encounter Visit Diagnoses Diagnosis Iron deficiency Disorders of iron metabolism documented in this encounter Care Teams Duplicating Machine Servicer Relationship Specialty Start Date End Date Shaikh Day MD PCP - General Internal Medicine 08/30/22 05/14/23 Shaikh Day MD [address] [place] [address] PCP - General Internal Medicine 05/15/23 10/02/23 Gerry Godwin MD [address] [place] [address] PCP - General Family Medicine 10/03/23 12/02/23 Shaikh Day MD [address] [place] [address] PCP - Donald ZARCO 10/13/23 02/11/24 Unallocated, Kristi Nichole MD [address] [place] [address] PCP - General Family Medicine 12/03/23 12/11/23 Gerry Godwin MD [address] [place] [address] PCP - General Family Medicine 12/12/23 Gerry Godwin MD [address] [place] [address] PCP - Donald ZARCO 04/11/24 Aleena Collado NP [address] [place] [address] Nurse Practitioner Family Medicine 10/03/23 Obed Walls DO [address] [place] [address] Otolaryngology 12/02/23 Vish Zazueta DO [address] [address] Referring Physician Neurology 12/09/23 Ynes Snyder NP [address] [address] Nurse Practitioner Neurology 12/09/23 Jessica Ceballos NP [address] [address] Nurse Practitioner Neurology 12/09/23 Milton Piña, HAROLDO [address] [place] [address] Family Medicine 01/21/24 documented as of this encounter
--- OUTSIDE RECORDS SUMMARY | 2024-08-20 10:01 | XMS_ITS | Encounter Summary ---
Author Organization [facility] Address [address] [place] [address] Care Team Providers Care Story Reader Name Role Phone Shaikh PEEWEE Day Primary Care Provider [phone] Shaikh PEEWEE Day Primary Care Provider [phone] Aleena Collado EXECUTIVE CHAIRMAN OF THE BOARD Unavailable [phone] Gerry Godwin MD Primary Care Provider [phone] Shaikh PEEWEE Day Unavailable [phone] Obed Walls Tye DO Unavailable Unallocated, Noms Provider Primary Care Provi neftali Vish Zazueta DO Unavailable Ynes Snyder EXECUTIVE CHAIRMAN OF THE BOARD Unavailable [phone] Jessica Ceballos EXECUTIVE CHAIRMAN OF THE BOARD Unavailable Unavailable Gerry Godwin MD Primary Care Provider [phone] Milton Piña MA Unavailable [phone] Gerry Godwin MD Unavailable Encounter Details Date Type Department Care Team (Late st Contact Info) Description 04/03/2023 Orders Only [facility] [address] [place] [address] Shaikh Day MD [address] [place] [address] Anxiety and depression Social History Tobacco Use [...] 9:40 AM EDT Office Visit [facility] [address] [place] [address] Aleena Collado NP [address] [place] [address] documented as of this encounter Visit Diagnoses Diagnosis Anxiety and depression documented in this encounter Care Teams Story Reader Relationship Specialty Start Date End Date Shaikh Day MD PCP - General Internal Medicine 08/30/22 05/14/23 Shaikh Day MD [address] [place] [address] PCP - General Internal Medicine 05/15/23 10/02/23 Gerry Godwin MD [address] [place] [address] PCP - General Family Medicine 10/03/23 12/02/23 Shaikh Day MD [address] [place] [address] PCP - Donald ZARCO 10/13/23 02/11/24 Unallocated, Kristi Nichole MD [address] [place] [address] PCP - General Family Medicine 12/03/23 12/11/23 Gerry Godwin MD [address] [place] [address] PCP - General Family Medicine 12/12/23 Gerry Godwin MD [address] [place] [address] PCP - Donald ZARCO 04/11/24 Aleena Collado NP [address] [place] [address] Nurse Practitioner Family Medicine 10/03/23 Obed Walls DO [address] [place] [address] Otolaryngology 12/02/23 Vish Zazueta DO [address] [address] Referring Physician Neurology 12/09/23 Ynes Snyder, SANDRA [address] [address] Nurse Practitioner Neurology 12/09/23 Jessica Ceballos NP [address] [address] Nurse Practitioner Neurology 12/09/23 Milton Piña MA [address] [place] [address] Family Medicine 01/21/24 documented as of this encounter
--- OUTSIDE RECORDS SUMMARY | 2024-08-20 10:01 | XMS_ITS | Encounter Summary ---
Author Organization [facility] Address [address] [place] [address] Care Team Providers Care Souvenir Assembler Name Role Phone Aleena Collado ASBESTOS CLOTH INSPECTOR Unavailable [phone] Obed Walls DO Unavailable Vish Zazueta DO Unavailable Ynes Snyder ASBESTOS CLOTH INSPECTOR Unavailable [phone] Jessica Ceballos NP Unavailable Unavailable Gerry Godwin MD Primary Care Provider [phone] Milton Piña MA Unavailable [phone] Gerry Godwin MD Unavailable Encounter Details Date Type Department Care Team (Late st Contact Info) Description 02/24/2024 Orders Only [facility] [address] [place] [address] Stella Christensen NP Social History [...] week 01/27/2024 How often do you attend religious or evangelical serv ices? Never 01/27/2024 Do you belong to any clubs o r organizations such as religious groups, unions, fraternal or athletic groups, or [...] Recorded Patient Health Questionnaire-2 Score 0 09/09/2023 [facility] of Occupat ional Health - Occupational Stress [...] any time in the past 12 m [facility], were you homeless or living [...] Visit [facility] [address] [place] [address] Aleena Collado NP [address] [place] [address] documented as of this encounter Visit Diagnoses Not on filedocumented in this encounter Additional Health Concerns Assessment Noted Time PHQ-9 Depression Total Score: 0 06/03/19 24 6:24 PM EDT A fall risk assessment has been complete d for the patient 01/27/2024 9:56 AM EST documented as of this encounter Care Teams Souvenir Assembler Relationship Specialty Start Date End Date Gerry Godwin MD [address] [place] [address] PCP - General Family Medicine 12/12/23 Gerry Godwin MD [address] [place] [address] PCP - Donald ZARCO 04/11/24 Aleena Collado NP [address] [place] [address] Nurse Practitioner Family Medicine 10/03/23 Obed Walls DO [address] [place] [address] Otolaryngology 12/02/23 Vish Zazueta DO [address] [address] Referring Physician Neurology 12/09/23 Ynes Snyder NP [address] [address] Nurse Practitioner Neurology 12/09/23 Jessica Ceballos NP [address] [address] Nurse Practitioner Neurology 12/09/23 Milton Piña MA [address] [place] [address] Family Medicine 01/21/24 documented as of this encounter
--- OUTSIDE RECORDS SUMMARY | 2024-08-20 10:01 | XMS_ITS | Clinical Summary ---
Author Organization [facility] Address [address] [place] [address] Phone Care Team Providers Care Insole And Outsole Preparer Name Role Phone Unavailable Primary Care Provider [...] Bone Density Scan 1950 Lipid Panel 1950 Yearly Adult Physical 1950 Hepatitis C Screening 1966 DTaP/Tdap/Td Vaccines (1 - Tdap) 1970 Pneumococcal Vaccine (1 of 1 - PCV) 1998 Zoster Vaccines (1 of 2) 1998 RSV High Risk: (Elderly (60+ ) or Population) (1 - 1-dose 75+ series) 06/04/2023 COVID-19 Vaccine (1 - 2023-2 5 season) 2023 Influenza Vaccine (#1) 2024 HIB Vaccines Aged Out No longer [...]
--- OUTSIDE RECORDS SUMMARY | 2024-08-20 10:02 | XMS_ITS | Encounter Summary ---
Author Organization [facility] Address [address] [place] [address] Care Team Providers Care E M Assembler Name Role Phone Shaikh PEEWEE Day Primary Care Provider [phone] Shaikh PEEWEE Day Primary Care Provider [phone] Aleena Collado HOSPITAL INTERN Unavailable [phone] Gerry Godwin MD Primary Care Provider [phone] Shaikh PEEWEE Day Unavailable [phone] Obed Walls DO Unavailable Unallocated, Noms Provider Primary Care Provi neftali Vish Zazueta DO Unavailable Ynes Snyder HOSPITAL INTERN Unavailable [phone] Jessica Ceballos NP Unavailable Unavailable Gerry Godwin MD Primary Care Provider [phone] Milton Piña MA Unavailable [phone] Gerry Godwin MD Unavailable Encounter Details [...] Visit [facility] [address] [place] [address] Aleena Collado NP [address] [place] [address] documented as of this encounter Procedures Procedure Name Priority Date/Time Associated Diagnosis Comments ECHOCARDIOGRAM 2D COMPLETE 03/01/2023 6:27 PM EST documented in this encounter Results * Echocardiogram 2D complete (03/01/2023 6:27 PM EST) Anatomical Region Laterality Modality Ultrasound 03/01/2023 6:27 PM EST Narrative 03/01/2023 6:29 [place] [address] Cardiology Report Signed Patient: OZZIE GIFFORD MR#: [id number] : 1950 Acct:[id number] Age/Sex: 72 / F ADM Date: 03/01/23 Loc: CARD Attending Dr: DIANA FONSECA Ordering Physician: DIANA FONSECA Date of Service: 03/01/23 Procedure(s): CA echo w/ con Accession Number(s): [id number] cc: DIANA FONSECA Shaikh M.D. Patient Name: OZZIE GIFFORD MR#: [id number] : 1950 Exam Date: 03/01/2023 Ordering Doctor: [...] SALVADOR Signed By: 03/01/231828 DD/ 26 TD/TT: Black Pickler: Procedure Note Radiology, Radiologist, MD - 03/01/2023 [place] [address] Cardiology Report Signed Patient: OZZIE GIFFORD BMR#: [id number] : 1950cct:[id number] Age/Sex: 72 / FADM Date: 03/01/23 Loc: CARD Attending Dr: DIANA FONSECA Ordering Physician: DIANA FONSECA Date of Service: 03/01/23 Procedure(s): CA echo w/ con Accession Number(s): [id number] cc: DIANA FONSECA ; Shaikh Pati Day Patient Name: OZZIE GIFFORD MR#: [id number] : 1950 Exam Date: 03/01/2023 Ordering Doctor: [...] NICOLAS SALVADOR Signed By:03/01/231828 DD/ 26 TD/TT: Black Pickler: Generic External Data Provider CV ECHO PROCEDURE S Final Result documented in this encounter Visit Diagnoses Not on filedocumented in this encounter Care Teams E M Assembler Relationship Specialty Start Date End Date Shaikh Day MD PCP - General Internal Medicine 08/30/22 05/14/23 Shaikh Day MD [address] [place] [address] PCP - General Internal Medicine 05/15/23 10/02/23 Gerry Godwin MD [address] [place] [address] PCP - General Family Medicine 10/03/23 12/02/23 Shaikh Day MD [address] [place] [address] PCP - Donald ZARCO 10/13/23 02/11/24 Unallocated, Kristi Nichole MD [address] [place] [place] [address] PCP - General Family Medicine 12/03/23 12/11/23 Gerry Godwin MD [address] [address] PCP - General Family Medicine 12/12/23 Gerry Godwin MD [address] [place] [address] PCP - Donald ZARCO 04/11/24 Aleena Collado NP [address] [place] [address] Nurse Practitioner Family Medicine 10/03/23 Obed Walls DO [address] [place] [address] Otolaryngology 12/02/23 Vish Zazueta DO [address] [place] [address] Referring Physician Neurology 12/09/23 Ynes Snyder, SANDRA [address] [place] [address] Nurse Practitioner Neurology 12/09/23 Jessica Ceballos NP [address] [address] Nurse Practitioner Neurology 12/09/23 Milton Piña, HAROLDO [address] [place] [address] Family Medicine 01/21/24 documented as of this encounter
--- OUTSIDE RECORDS SUMMARY | 2024-08-20 10:02 | XMS_ITS | Encounter Summary ---
Author Organization [facility] Address [address] [place] [address] Care Team Providers Care Assault Amphibious Vehicle Officer Name Role Phone Shaikh PEEWEE Day Primary Care Provider [phone] Shaikh PEEWEE Day Primary Care Provider [phone] Aleena Collado VARNISH INSPECTOR Unavailable [phone] Gerry Godwin MD Primary Care Provider [phone] Shaikh PEEWEE Day Unavailable [phone] LexiObed heath Tye DO Unavailable Unallocated, Noms Provider Primary Care Provi neftali Vish Zazueta DO Unavailable Ynes Snyder VARNISH INSPECTOR Unavailable [phone] Jessica Ceballos VARNISH INSPECTOR Unavailable Unavailable Gerry Godwin MD Primary Care Provider [phone] Milton Piña MA Unavailable [phone] Gerry Godwin MD Unavailable Encounter Details Date Type Department Care Team (Late st Contact Info) Description 03/05/2023 Abstract [facility] [address] [place] [address] Shaikh Day MD [address] [place] [address] Social History Tobacco Use Types Packs/Day Years [...] 11/12/2024 9:40 AM EDT Office Visit [facility] [address] [place] [address] Aleena Collado NP [address] [place] [address] documented as of this encounter Visit Diagnoses Not on filedocumented in this encounter Care Teams Assault Amphibious Vehicle Officer Relationship Specialty Start Date End Date Shaikh Day MD PCP - General Internal Medicine 08/30/22 05/14/23 Shaikh Day MD [address] [place] [address] PCP - General Internal Medicine 05/15/23 10/02/23 Gerry Godwin MD [address] [place] [address] PCP - General Family Medicine 10/03/23 12/02/23 Shaikh Day MD [address] [place] [address] PCP - Donald ZARCO 10/13/23 02/11/24 Unallocated, Kristi Nichole MD [address] [place] [address] PCP - General Family Medicine 12/03/23 12/11/23 Gerry Godwin MD [address] [place] [address] PCP - General Family Medicine 12/12/23 Gerry Godwin MD [address] [place] [address] PCP - Donald ZARCO 04/11/24 Aleena Collado NP [address] [place] [address] Nurse Practitioner Family Medicine 10/03/23 Obed Walls DO [address] [place] [address] Otolaryngology 12/02/23 Vish Zazueta DO [address] [address] Referring Physician Neurology 12/09/23 Ynes Snyder NP [address] [address] Nurse Practitioner Neurology 12/09/23 Jessica Ceballos NP [address] [place] [address] [place] [address] Nurse Practitioner Neurology 12/09/23 Milton Piña, HAROLDO [address] [place] [address] Family Medicine 01/21/24 documented as of this encounter
--- OUTSIDE RECORDS SUMMARY | 2024-08-20 10:02 | XMS_ITS | Encounter Summary ---
Author Organization [facility] Address [address] [place] [address] Care Team Providers Care Head Athletic Trainer/Strength Coach Name Role Phone Shaikh PEEWEE Day Primary Care Provider [phone] Shaikh PEEWEE Day Primary Care Provider [phone] Aleena Collado TALENT ACQUISITION OPERATIONS MANAGER Unavailable [phone] Gerry Godwin MD Primary Care Provider [phone] Shaikh PEEWEE Day Unavailable [phone] Obed Walls Tye DO Unavailable Unallocated, Noms Provider Primary Care Provi neftali Vish Zazueta DO Unavailable Ynes Snyder TALENT ACQUISITION OPERATIONS MANAGER Unavailable [phone] Jessica Ceballos TALENT ACQUISITION OPERATIONS MANAGER Unavailable Unavailable Gerry Godwin MD Primary Care Provider [phone] Milton Piña MA Unavailable [phone] Gerry Godwin MD Unavailable Encounter Details Date Type Department Care Team (Late st Contact Info) Description 03/05/2023 Orders Only [facility] [address] [place] [address] Shaikh Day MD [address] [place] [address] Social History Tobacco Use Types Packs/Day Years [...] Visit [facility] [address] [place] [address] Aleena Collado NP [address] [place] [address] documented as of this encounter Procedures Procedure Name Priority Date/Time Associated Diagnosis Comments MRA HEAD/BRAIN WO Routine 03/05/2023 4:09 PM EST XR CHEST 1 VIEW Routine 03/05/2023 3:56 PM EST documented in this encounter Results * MRA HEAD/BRAIN WO (03/05/2023 4:09 PM EST) Anatomical Region Laterality Modality Radiographic Alains ging us Shaikh Barb VIDES IMG XR PROCEDURES Final Result * XR chest 1 view (03/05/2023 3:56 PM EST) Anatomical Region Laterality Modality Chest Radiographic Alanis ging us Shaikh Barb VIDES IMG XR PROCEDURES Final Result documented in this encounter Visit Diagnoses Not on filedocumented in this encounter Care Teams Head Athletic Trainer/Strength Coach Relationship Specialty Start Date End Date Shaikh Day MD PCP - General Internal Medicine 08/30/22 05/14/23 Shaikh Day MD [address] [place] [address] PCP - General Internal Medicine 05/15/23 10/02/23 Gerry Godwin MD [address] [place] [address] PCP - General Family Medicine 10/03/23 12/02/23 Shaikh Day MD [address] [place] [address] PCP - Donald ZARCO 10/13/23 02/11/24 Unallocated, Noms MD Dayanara [address] [place] [address] PCP - General Family Medicine 12/03/23 12/11/23 Gerry Godwin MD [address] [place] [address] PCP - General Family Medicine 12/12/23 Gerry Godwin MD [address] [place] [address] PCP - Donald ZARCO 04/11/24 Aleena Collado NP [address] [place] [address] Nurse Practitioner Family Medicine 10/03/23 Obed Walls DO [address] [place] [address] Otolaryngology 12/02/23 Vish Zazueta DO [address] [address] Referring Physician Neurology 12/09/23 Ynes Snyder NP [address] [place] [address] Nurse Practitioner Neurology 12/09/23 Jessica Ceballos NP [address] [place] [address] Nurse Practitioner Neurology 12/09/23 Milton Piña MA [address] [place] [address] Family Medicine 01/21/24 documented as of this encounter
--- OUTSIDE RECORDS SUMMARY | 2024-08-20 10:02 | XMS_ITS | Encounter Summary ---
Author Organization [facility] Address [address] [place] [address] Care Team Providers Care Research Environmental Engineer Name Role Phone Aleena Collado STEEL DIVISION SUPERVISOR Unavailable [phone] Obed Walls DO Unavailable [phone] Vish Zazueta DO Unavailable Ynes Snyder NP Unavailable [phone] Jessica Ceballos NP Unavailable Unavailable Gerry Godwin MD Primary Care Provider Milton Piña MA Unavailable [phone] Gerry Godwin MD Unavailable Reason for Visit * Reason Onset Date Comments Med Refill 08/12/2024 Encounter Details Date Type Department Care Team (Late st Contact Info) Description 08/12/2024 Refill [facility] [address] [place] [address] Aleena Collado, STEEL DIVISION SUPERVISOR [address] [place] [address] Primary hypertension ; Anxiety and depression ; Psychophysiological insomnia; Atherosclerosis of coronary artery of [place] heart, unspecified vessel or lesion type, unspecified whether angina present ; Stenosis of right carotid artery; Cerebrovascular accident (CVA), unspecified mechanism (HCC); Migraine with aura and without status migrainosus, not intractable Social History Tobacco Use Types Packs/Day Years [...] week 01/27/2024 How often do you attend jew or christian serv ices? Never 01/27/2024 Do you belong to any clubs o r organizations such as jew groups, unions, fraternal or athletic groups, or [...] Recorded Patient Health Questionnaire-2 Score 0 09/09/2023 [facility] of Occupat ional [facility] - Occupational Stress Questionnaire Answer Date Recorded [...] any time in the past 12 m [facility], were you homeless or living in a fdc (including now)? No 01/27/2024 Comments Unknown Sex [...] Visit [facility] [address] [place] [address] Aleena Collado, SANDRA [address] [place] [address] documented as of this encounter Visit Diagnoses Diagnosis Primary hypertension Unspecified essential hypertension Anxiety and depression Psychophysiological insomnia Persistent disorder of initiating or maintaining sleep Atherosclerosis of coronary artery of [place] heart, unspecified vessel or lesion type, unspecified whether angina present Stenosis of right carotid artery Occlusion and stenosis of carotid artery without mention of cerebral infarction Cerebrovascular accident (CVA), unspecified mechanism (HCC) Migraine with aura and without status migrainosus, not intractable documented in this encounter Additional Health Concerns Assessment Noted Time PHQ-9 Depression Total Score: 0 06/03/19 24 6:24 PM EDT A fall risk assessment has been complete d for the patient 01/27/2024 9:56 AM EST documented as of this encounter Care Teams Research Environmental Engineer Relationship Specialty Start Date End Date Gerry Godwin MD [address] [place] [address] PCP - General Family Medicine 12/12/23 Gerry Godwin MD [address] [place] [address] PCP - Donald ZARCO 04/11/24 Aleena Collado, SANDRA [address] [place] [address] Nurse Practitioner Family Medicine 10/03/23 Obed Walls DO [address] [place] [address] Otolaryngology 12/02/23 Vish Zazueta DO [address] [address] [place] [address] Referring Physician Neurology 12/09/23 Ynes Snyder NP [address] [address] Nurse Practitioner Neurology 12/09/23 Jessica Ceballos NP [address] [place] [address] Nurse Practitioner Neurology 12/09/23 Milton Piña, HAROLDO [address] [place] [address] Family Medicine 01/21/24 documented as of this encounter
--- OUTSIDE RECORDS SUMMARY | 2024-08-20 10:02 | XMS_ITS | Encounter Summary ---
Author Organization [facility] Address [address] [place] [address] Care Team Providers Care Thread Inspector Name Role Phone Aleena Collado PATTERN PERFORATING MACHINE OPERATOR Unavailable [phone] Obed Walls DO Unavailable [phone] Vish Zazueta DO Unavailable Ynes Snyder PATTERN PERFORATING MACHINE OPERATOR Unavailable [phone] Jessica Ceballos NP Unavailable Unavailable Gerry Godwin MD Primary Care Provider Milton Piña MA Unavailable [phone] Gerry Godwin MD Unavailable Encounter Details Date Type Department Care Team (Late st Contact Info) Description 08/10/2024 Orders Only [facility] [address] [place] [address] Ruben Carrillo MD [address] [place] [address] Social History Tobacco Use Types Packs/Day Years [...] week 01/27/2024 How often do you attend mandaeism or evangelical serv ices? Never 01/27/2024 Do you belong to any clubs o r organizations such as mandaeism groups, unions, fraternal or athletic groups, or [...] Recorded Patient Health Questionnaire-2 Score 0 09/09/2023 [facility] of Occupat ional Health - Occupational Stress [...] any time in the past 12 m [facility], were you homeless or living in [...] Visit [facility] [address] [place] [address] Aleena Collado NP [address] [place] [address] documented as of this encounter Procedures Procedure Name Priority Date/Time Associated Diagnosis Comments STRESS TEST LEXISCAN Routine 08/10/2024 2:14 PM EDT documented in this encounter Results * STRESS TEST LEXISCAN (08/10/2024 2:14 PM EDT) Anatomical Region Laterality Modality Heart Other Ruben Carrillo MD CV STRESS PROCEDURES Final R esult documented in this encounter Visit Diagnoses Not on filedocumented in this encounter Additional Health Concerns Assessment Noted Time PHQ-9 Depression Total Score: 0 06/03/19 24 6:24 PM EDT A fall risk assessment has been complete d for the patient 01/27/2024 9:56 AM EST documented as of this encounter Care Teams Thread Inspector Relationship Specialty Start Date End Date Gerry Godwin MD [address] [place] [address] PCP - General Family Medicine 12/12/23 Gerry Godwin MD [address] [place] [address] PCP - Donald ZARCO 04/11/24 Aleena Collado NP [address] [place] [address] Nurse Practitioner Family Medicine 10/03/23 Obed Walls DO [address] [place] [address] Otolaryngology 12/02/23 Vish Zazueta DO [address] [address] Referring Physician Neurology 12/09/23 Ynes Snyder NP [address] [address] Nurse Practitioner Neurology 12/09/23 Jessica Ceballos NP [address] [address] Nurse Practitioner Neurology 12/09/23 Milton Piña, HAROLDO [address] [place] [address] Family Medicine 01/21/24 documented as of this encounter
--- OUTSIDE RECORDS SUMMARY | 2024-08-20 10:02 | XMS_ITS | Encounter Summary ---
Author Organization [email or web address] Address [id number] [address] [place] [address] Care Team Providers Care Full Stack Web Developer Name Role Phone Gerry Godwin MD Primary Care Provider [phone] Encounter Details Date Type Department Care Team (Late st Contact Info) Description 03/06/2023 Orders Only [facility] [address] [place] [address] Transcribe, Orders Support User Pain (Primary [...] documented as of this encounter Care Teams Full Stack Web Developer Relationship Specialty Start Date End Date Gerry Godwin MD PCP - General Family Medicine 04/07/18 documented as of this encounter
--- OUTSIDE RECORDS SUMMARY | 2024-08-20 10:02 | XMS_ITS | Encounter Summary ---
Author Organization [employer] Address [id number] [address] [place] [address] Care Team Providers Care Ski Guide Name Role Phone Gerry Godwin MD Primary Care Provider [phone] Encounter Details Date Type Department Care Team (Late st Contact Info) Description 03/03/2023 Orders Only [facility] [place] [address] External, Scanning Provider Pain (Primary [...] documented as of this encounter Care Teams Ski Guide Relationship Specialty Start Date End Date Gerry Godwin MD PCP - General Family Medicine 04/07/18 documented as of this encounter
--- OUTSIDE RECORDS SUMMARY | 2024-08-20 10:02 | XMS_ITS | Encounter Summary ---
Author Organization [facility] Address [address] [place] [address] Care Team Providers Care Multimedia Instructional Designer Name Role Phone Aleena Collado WHITE WASHER PILER Unavailable [phone] Obed Walls DO Unavailable Vish Zazueta DO Unavailable Ynes Snyder WHITE WASHER PILER Unavailable [phone] Jessica Ceballos NP Unavailable Unavailable Gerry Godwin MD Primary Care Provider Milton Piña MA Unavailable [phone] Gerry Godwin MD Unavailable Encounter Details Date Type Department Care Team (Late st Contact Info) Description 08/17/2024 Patient Outreach [facility] [address] [place] [address] Milton Piña MA [address] [place] [address] Social History Tobacco Use Types [...] week 01/27/2024 How often do you attend mormonism or alevism serv ices? Never 01/27/2024 Do you belong to any clubs o r organizations such as mormonism groups, unions, fraternal or athletic groups, or [...] Recorded Patient Health Questionnaire-2 Score 0 09/09/2023 [facility] of Occupat ional Health - Occupational Stress [...] any time in the past 12 m [facility], were you homeless or living in a custodial (including now)? No 01/27/2024 Comments Unknown Sex and Gender Information Value Date Recorded Sex Assigned at Not on file Legal Sex Female 6:38 PM EDT Gender Identity Not on file Sexual Orientation Not on file documented as of this encounter Progress Notes * Milton Piña MA - 08/17/2024 10:11 AM EDT Pt called asking for refill of Aspirin chewable and Potassium CL 20. Pt also said she is having herbladder scraping tmro. She said once she gets results, she will call me and update. Mud Jack Nozzleman will send message to provider for refills as I could not find the potassium 20 in her chart. * Milton Piña MA - 08/17/2024 10:11 AM EDT Mud Jack Nozzleman received message back from PCP inquiring about Potassium Rx. I spoke with Ozzie and she said it is not Potassium it is TrospiumChloride. Mud Jack Nozzleman advised pt to contact urology office as they have been filling this med and prescribed it. She voiced understanding. documented in this encounter Plan of Treatment Upcoming Encounters Date Type Department Care Team (Late st Contact Info) Description 11/12/2024 9:40 AM EDT Office Visit [facility] [address] [place] [address] Aleena Collado, SANDRA [address] [place] [address] documented as of this encounter Visit Diagnoses Diagnosis Primary hypertension- Primary Unspecified essential hypertension Chronic heart failure, unspecified heart failure type (HCC) CRYSTAL (generalized anxiety disorder) Generalized anxiety disorder documented in this encounter Additional Health Concerns Assessment Noted Time PHQ-9 Depression Total Score: 0 06/03/19 24 6:24 PM EDT A fall risk assessment has been complete d for the patient 01/27/2024 9:56 AM EST documented as of this encounter Care Teams Multimedia Instructional Designer Relationship Specialty Start Date End Date Gerry Godwin MD [address] [place] [address] PCP - General Family Medicine 12/12/23 Gerry Godwin MD [address] [place] [address] PCP - Donald ZARCO 04/11/24 Aleena Collado, SANDRA [address] [place] [address] Nurse Practitioner Family Medicine 10/03/23 Obed Walls DO [address] [place] [address] Otolaryngology 12/02/23 Vish Zazueta DO [address] [address] Referring Physician Neurology 12/09/23 Ynes Snyder NP [address] [address] Nurse Practitioner Neurology 12/09/23 Jessica Ceballos NP [address] [address] Nurse Practitioner Neurology 12/09/23 Milton Piña, HAROLDO [address] [place] [address] Family Medicine 01/21/24 documented as of this encounter
--- OUTSIDE RECORDS SUMMARY | 2024-08-20 10:02 | XMS_ITS | Encounter Summary ---
Author Organization [facility] Address [facility] [place] [address] Care Team Providers Care Office Machine Installer Name Role Phone Aneesh Ramirez MD Primary Care Provid er Source Comments In the event this information is protected by the Federal Confidentiality of Alcohol and Drug AbusePatient Records regulations: The Federal rules restrict any use of the information to criminally investigate or prosecute any alcohol or drug abuse patient.[facility] Encounter Details Date Type Department Care Team (Late st Contact Info) Description 06/06/2009 Patient Msg Medical Records [address] [place] [address] Provider, Cc RE: Patient Registration Completed Social [...] on filedocumented in this encounter Care Teams Office Machine Installer Relationship Specialty Start Date End Date Aneesh Ramirez MD [address] [place] [address] PCP - General 07/24/07 documented as of this encounter
--- OUTSIDE RECORDS SUMMARY | 2024-08-20 10:02 | XMS_ITS | Encounter Summary ---
Author Organization [facility] Address [address] [place] [address] Care Team Providers Care Buckle Sorter Name Role Phone Aleena Collado AIRLINE STATION AGENT Unavailable [phone] Obed Walls DO Unavailable [phone] Vish Zazueta DO Unavailable [phone] Ynes Snyder NP Unavailable [phone] Jessica Ceballos NP Unavailable Unavailable Gerry Godwin MD Primary Care Provider [phone] Milton Piña MA Unavailable [phone] Gerry Godwin MD Unavailable Encounter Details Date Type Department Care Team (Late st Contact Info) Description 08/12/2024 Refill [facility] [address] [place] [address] Aleena Collado AIRLINE STATION AGENT [address] [place] [address] Muscle spasm (Primary Dx) Social History Tobacco Use Types [...] week 01/27/2024 How often do you attend orthodoxy or alevism serv ices? Never 01/27/2024 Do you belong to any clubs o r organizations such as orthodoxy groups, unions, fraternal or athletic groups, or [...] Recorded Patient Health Questionnaire-2 Score 0 09/09/2023 [facility] - Occupational Stress Questionnaire Answer [...] any time in the past 12 m [facility], were you homeless or living in a longterm (including now)? No 01/27/2024 Comments Unknown Sex [...] Visit [facility] [address] [place] [address] Aleena Collado NP [address] [place] [address] documented as of this encounter Visit Diagnoses Diagnosis Muscle spasm- Primary Spasm of muscle documented in this encounter Additional Health Concerns Assessment Noted Time PHQ-9 Depression Total Score: 0 06/03/19 24 6:24 PM EDT A fall risk assessment has been complete d for the patient 01/27/2024 9:56 AM EST documented as of this encounter Care Teams Buckle Sorter Relationship Specialty Start Date End Date Gerry Godwin MD [address] [place] [address] PCP - General Family Medicine 12/12/23 Gerry Godwin MD [address] [place] [address] PCP - Donald ZARCO 04/11/24 Aleena Collado NP [address] [place] [address] Nurse Practitioner Family Medicine 10/03/23 Obed Walls DO [address] [place], [place] [address] Otolaryngology 12/02/23 Vish Zazueta DO [address] [address] Referring Physician Neurology 12/09/23 Ynes Snyder NP [address] [address] Nurse Practitioner Neurology 12/09/23 Jessica Ceballos NP [address] [address] Nurse Practitioner Neurology 12/09/23 Milton Piña MA [address] [place] [address] Family Medicine 01/21/24 documented as of this encounter
--- OUTSIDE RECORDS SUMMARY | 2024-08-20 10:02 | XMS_ITS | Clinical Summary ---
Author Organization [facility] Address [address] [place] [address] Care Team Providers Care Cadastral Surveyor Name Role Phone Aleena Collado MANAGER HIV Unavailable [phone] Obed Walls DO Unavailable Vish Zazueta DO Unavailable [phone] Ynes Snyder MANAGER HIV Unavailable [phone] José Manuel Mcleod NP Unavailable Unavailable Gerry Godwin MD Primary Care Provider Milton Piña MA Unavailable [phone] Gerry Godwin MD Unavailable Allergies Active Allergy Reactions Criticality Noted Date Comments Penicillin G Unknown 02/20/2023 Penicillins Rash Low 02/19/2007 Medications furosemide (Lasix) 40 MG tablet Take 20 mg by mouth Daily Pt takes 20mg 02/13/19 24 Active cetirizine (ZyrTEC) 10 MG tablet Take by mouth Act abbe D-Mannose 500 MG capsule Take 500 mg by mouth Daily [facility] Active Probiotic Product (PROBIOTIC/PREBIOTI C/CRANBERRY PO) Take 60 mg by mouth Daily Active ascorbic acid (Vitamin C) 500 MG tablet Take 500 mg by mouth Daily Active estradiol (Estrace) 0.1 MG/GM vaginal cream apply a pea-sized amount vaginally and around the urethra NIGHTLY TIME 3 (THREE) weeks, then 3 (THREE) times per week thereafter 04/01/19 25 Active methenamine hippurate (Hiprex) 1 g tablet Take 1 g by mouth in the morning and 1 g before bedtime. 04/15/19 25 Active trospium (Sanctura XR) 60 MG 24 hour capsule Take 60 mg by mouth in the morning. 05/15/19 25 Active amLODIPine (Norvasc) 2.5 MG tabletIndications:P rimary hypertension Take 1 tablet (2.5 mg) by mouth Daily 90 tablet 1 08/13/19 025 Active clonazePAM (KlonoPIN) 0.5 MG tabletIndications:A nxiety and depression Take 1 tablet (0.5 mg) by mouth in the morning and 1 tablet (0.5 mg) before bedtime. 60 tablet 2 08/13/19 25 025 Active metoprolol succinate XL (Toprol-XL) 25 MG 24 hr tabletIndications:P rimary hypertension Take 1 tablet (25 mg) by mouth Daily Do not crush or chew 90 tablet 1 08/13/19 025 Active QUEtiapine (SEROquel) 50 MG tabletIndications:P sychophysiological insomnia Take 1 tablet (50 mg) by mouth at bedtime 90 tablet 1 08/13/19 25 025 Active rosuvastatin (Crestor) 20 MG tabletIndications:A therosclerosis of coronary artery of iroquois heart, unspecified vessel or lesion type, unspecified whether angina present,Stenosis of right carotid artery,Cerebrovascu lar accident (CVA), unspecified mechanism (HCC) Take 1 tablet (20 mg) by mouth at bedtime 90 tablet 1 08/13/19 025 Active topiramate 50 MG tabletIndications:M igraine with aura and without status migrainosus, not intractable Take 50 mg by mouth at bedtime 90 tablet 1 08/13/19 025 Active baclofen (Lioresal) 20 MG tabletIndications:M uscle spasm Take 1 tablet (20 mg) by mouth every 8 (eight) hours if needed for muscle spasms 90 tablet 2 08/13/19 25 025 Active aspirin (Aspirin Low Dose) 81 MG chewable tabletIndications:P eripheral vascular disease, unspecified,Atheros clerosis of coronary artery of iroquois heart, unspecified vessel or lesion type, unspecified whether angina present,Stenosis of carotid artery, unspecified laterality Chew 1 tablet (81 mg) Daily 90 tablet 3 08/18/19 25 025 Active trospium (Sanctura) 20 MG tablet Take 60 mg by mouth in the morning and 60 mg before bedtime. 025 Discontinu ed(Therapy completed) amLODIPine (Norvasc) 2.5 MG tabletIndications:P rimary hypertension Take 1 tablet (2.5 mg) by mouth Daily 90 tablet 1 01/21/20 24 025 Discontinu ed(Reorder ) QUEtiapine (SEROquel) 50 MG tabletIndications:P sychophysiological insomnia Take 1 tablet (50 mg) by mouth at bedtime 90 tablet 1 01/21/20 24 025 Discontinu ed(Reorder ) rosuvastatin (Crestor) 20 MG tabletIndications:A therosclerosis of coronary artery of iroquois heart, unspecified vessel or lesion type, unspecified whether angina present,Stenosis of right carotid artery,Cerebrovascu lar accident (CVA), unspecified mechanism (HCC) Take 1 tablet (20 mg) by mouth at bedtime 90 tablet 1 01/21/20 24 025 Discontinu ed(Reorder ) topiramate 50 MG tabletIndications:M igraine with aura and without status migrainosus, not intractable Take 50 mg by mouth at bedtime 90 tablet 1 01/21/20 24 025 Discontinu ed(Reorder ) baclofen (Lioresal) 20 MG tablet Take 1 tablet (20 mg) by mouth in the morning and 1 tablet (20 mg) in the evening and 1 tablet (20 mg) before bedtime. 03/29/19 025 Discontinu ed(Reorder ) ferrous sulfate (FeroSul) 325 (65 Fe) MG tabletIndications:I sheeba deficiency Take 1 tablet (325 mg) by mouth in the morning. Take with meals. 90 tablet 1 04/30/19 25 025 metoprolol succinate XL (Toprol-XL) 25 MG 24 hr tabletIndications:P rimary hypertension Take 1 tablet (25 mg) by mouth Daily Do not crush or chew 90 tablet 05/06/19 25 025 Discontinu ed(Reorder ) doxycycline (Vibra-Tabs) 100 MG tablet Take 100 mg by mouth in the morning and 100 mg before bedtime. 05/09/19 25 025 Discontinu ed(Therapy completed) Aspirin Low Dose 81 MG chewable tablet Chew 81 mg Daily 05/16/19 25 025 Discontinu ed(Reorder ) clonazePAM (KlonoPIN) 0.5 MG tabletIndications:A nxiety and depression Take 1 tablet (0.5 mg) by mouth in the morning and 1 tablet (0.5 mg) before bedtime. 60 tablet 2 07/02/19 25 025 Discontinu ed(Reorder ) mirabegron ER (Myrbetriq) 50 MG 24 hr tablet Take 50 mg by mouth Daily 07/17/19 25 025 Discontinu ed(Therapy completed) Vibegron 75 MG tablet Take 75 mg by mouth Daily 07/17/19 25 025 Discontinu ed(Cost of medication ) Active Problems Problem Noted Date Diagnosed Date Episode of recurrent major depressive disorder 0 08/11/2024 Recurrent UTI 02/26/2024 Heart failure, unspecified 01/21/2024 Assessment & Plan (01/21/2024 11:51 AM EST): Current meds: lasix, bblocker, crestor and amlodipine Does follow with [facility] cardiology Does have LE edema noted as well today, no dyspnea Peripheral vascular disease, unspecified 024 Assessment & Plan (01/21/2024 6:37 AM EST): On statin, asa CRYSTAL (generalized anxiety disorder) 01/21/2024 Overview (01/21/2024): Med agreement signed: 01/21/24 Assessment & Plan (08/11/2024 7:41 AM EDT): Has been on klonopin for some time OARRS reviewed Assessment & Plan (05/12/2024 7:05 AM EDT): Has been on klonopin for some time OARRS reviewed Assessment & Plan (01/21/2024 6:45 AM EST): Has been on klonopin for some time OARRS reviewed Muscle spasm 01/21/2024 Assessment & Plan (01/21/2024 6:46 AM EST): Takes baclofen Iron deficiency 01/21/2024 Assessment & Plan (01/21/2024 10:42 AM EST): Labs stable, cont current meds Psychophysiological insomnia 01/21/2024 Assessment & Plan (08/11/2024 5:55 PM EDT): At this point I will reach out to neurology for help with this Letter to follow Chronic UTI 01/21/2024 Assessment & Plan (01/23/2024 [...] 02/20/2023 Primary hypertension 02/20/2023 Assessment & Plan (08/11/2024 7:41 AM EDT): Please check blood pressure daily and record DASH diet Limit caffeine Take medication as directed Contact office if chest pain, pressure, dizziness, shortness of breath, swelling legs Recommend slow position changes Current meds: asa, amlodipine, metoprolol XL Assessment & Plan (05/12/2024 7:05 AM EDT): [...] 11:59 PM EDT): At goal. Monitor closely. Migraine with aura and witho ut status [...] incontinence of urine 02/20/2023 Assessment & Plan (08/11/2024 5:54 PM EDT): Continue with urology Assessment & Plan (05/12/2024 7:05 AM EDT): [...] and continue all medications. Assessment & Plan (08/11/2024 7:41 AM EDT): Continue with cardiology, swelling in legs ??heart failure related Is on statin, asa, b jimmy and amlodipine Check lipids yearly and prn dose changes Had stress test 08/10/24 Assessment & Plan (01/21/2024 12:03 PM EST): [...] Noted Date Diagnosed Date Resolved Date Acute diffuse otitis externa of both ears 2024 08/11/2024 Assessment & Plan (2024 12:41 PM EDT): No evidence of TM perforation Will prescribe atb drops, for 10 days, if not better fu in office UTI symptoms 01/21/2024 08/11/2024 Overview (01/21/2024): [employer] [id number] LOT #[id number] EXP DATE: 02/11/2024 Assessment & Plan (01/21/2024 11:53 AM EST): Treat with macrobid, send for health trax culture Acute cystitis without hematuria 10/30/2023 01/21/2024 Overview [...] BP is well controlled. No changes needed. Recurrent major depressive d isorder, in full remission 02/20/2023 08/11/2024 Assessment & Plan (01/21/2024 6:39 AM EST): Takes klonopin prn, topirmate, seroquel as well URTI (acute upper respiratory infection) 02/20/2023 10/22/2023 [...] Encounters Date Type Department Care Team Description 08/17/2024 Refill [facility] [address] [place] [address] Aleena Collado NP Peripheral vascular disease, unspecified (Primary Dx); Atherosclerosis of coronary artery of iroquois heart, unspecified vessel or lesion type, unspecified whether angina present ; Stenosis of carotid artery, unspecified laterality 08/17/2024 Patient Outreach [facility] [address] [place] [address] Milton Piña MA 08/12/2024 Refill [facility] [address] [place] [phone] Aleena Collado NP Muscle spasm (Primary Dx) 08/12/2024 Refill [facility] [address] [place] [phone] Aleena Collado NP Primary hypertension ; Anxiety and depression ; Psychophysiological insomnia; Atherosclerosis of coronary artery of iroquois heart, unspecified vessel or lesion type, unspecified whether angina present ; Stenosis of right carotid artery; Cerebrovascular accident (CVA), unspecified mechanism (HCC); Migraine with aura and without status migrainosus, not intractable 08/11/2024 9:00 AM EDT Office Visit [facility] [address] [place] [phone] Aleena Collado NP Primary hypertension (Primary Dx); Atherosclerosis of coronary artery of iroquois heart, unspecified vessel or lesion type, unspecified whether angina present ; CRYSTAL (generalized anxiety disorder) ; Recurrent major depressive disorder, in full remission ; Episode of recurrent major depressive disorder, unspecified depression episode severity ; Overflow incontinence of urine; Psychophysiological insomnia 08/11/2024 Clinisync Result Encounter [facility] External Department Unsolicited Provider, Generic External Data 08/11/2024 Bamboo flowsheet [facility] [address] [place] [phone] Aleena Collado NP 08/10/2024 Orders Only [facility] [address] [place] [phone] Nicolas Salvador MD 08/03/2024 Patient Outreach [address] [place] [address] Milton Piña MA 07/29/2024 Patient Outreach [address] [place] [address] Milton Piña MA 07/07/2024 Orders Only [facility] [address] [place] [address] Alexandr Granado MD 07/01/2024 Refill [facility] [address] [place] [address] Aleena Collado NP Chronic UTI (Primary Dx); Anxiety and depression ; Overflow incontinence of urine 07/01/2024 Refill [facility] [address] [place] [address] Aleena Collado NP 07/01/2024 Patient Outreach [address] [place] [address] Milton Piña MA 06/30/2024 9:00 AM EDT Office Visit [facility] [address] [address] [place] [address] Chaim Noel MD Primary progressive aphasia (HCC) (Primary Dx); Ataxia; Memory difficulty; History of ischemic stroke; Other insomnia; DULCE MARIA (obstructive sleep apnea); Severe episode of recurrent major depressive disorder, without psychotic features (HCC); Severe anxiety 06/25/2024 Patient Outreach [address] [place] [address] Milton Piña MA 06/24/2024 Clinisync Result Encounter [facility] External Department Unsolicited José Manuel Mcleod NP 06/24/2024 Clinisync Result Encounter [facility] External Department Unsolicited José Manuel Mcleod NP 06/24/2024 Clinisync Result Encounter [facility] External Department Unsolicited José Manuel Mcleod NP 06/22/2024 Telephone [facility] [address] Chaim Hui MA 06/15/2024 10:30 AM EDT Office Visit JAIME [facility]JARRE[facility] [address] [phone] Chaim Noel MD Expressive aphasia (Primary Dx); Memory difficulty; History of ischemic stroke; Staring episodes; Other insomnia; Stress due to family tension 06/15/2024 Bamboo flowsheet [facility] [address] [phone] Chaim Noel MD 06/12/2024 Travel 2024 10:30 AM EDT Office Visit [facility] [address] [place] [phone] Aleena Collado NP Acute diffuse otitis externa of both ears (Primary Dx) 2024 Bamboo flowsheet [facility] [address] [place] [address] Aleena Collado NP 06/01/2024 1:20 PM EDT Office Visit [facility] [address] [place] [address] José Manuel Mcleod NP Ataxia (Primary Dx); Gait instability; Expressive aphasia; Memory difficulty; History of ischemic stroke 06/01/2024 Bamboo flowsheet [place] [address] [place] [address] [phone] José Manuel Mcleod NP 05/29/2024 Refill [facility] [address] [place] [phone] Aleena Collado NP Dizziness and giddiness (Primary Dx) 05/27/2024 Patient Outreach [facility] [address] [place] [address] Milton Piña MA from Last 3 Months Immunizations Immunization Administration Dates Next Due DTP 11/18/2020 Influenza, High Dose Seasona l, Preservative Free 12/22/2018 Influenza, High-dose Seasona l, Quadrivalent, Preservative Free 12/09/2019 Influenza, Seasonal, Quadriv alent, Adjuvanted 11/24/2022,01/20/2022,11/26/2020 Influenza, Unspecified 11/09/2023,2022,01/20/2022,2020,12/09/2019,12/22/2018,03/25/2001 Influenza, trivalent, adjuvanted 11/09/2023 Novel [id number], preservative-free 02/17/2009 Pneumococcal Conjugate PCV 20 11/24/2022 RSV, recombinant, protein james bunit RSVpreF, adjuvant reconstitu, 120mcg/0.5mL, PF (Arexvy) 11/24/2022 Td (adult) 03/25/2001 Family History Medical History Relation Name Comments [...] week 01/27/2024 How often do you attend yazidi or gnosticist serv ices? Never 01/27/2024 Do you belong to any clubs o r organizations such as yazidi groups, unions, fraternal or athletic groups, or [...] Recorded Patient Health Questionnaire-2 Score 0 09/09/2023 [facility] - Occupational [...] any time in the past 12 m [facility], were you homeless or living [...] 12.8 oz) 08/11/2024 9:10 AM EDT Height 154.9 cm (5' 1 ) 01/21/2024 9:55 AM EST Body Mass Index 30 01/21/2024 9:55 AM EST Plan of Treatment Upcoming Encounters Date Type Department Care Team (Late st Contact Info) Description 11/12/2024 9:40 AM EDT Office Visit [facility] [address] [place] [address] Aleena Collado, MANAGER HIV [address] [place] [address] Health Maintenance Due Date Last Done Comments Influenza Vaccine (#1) 2024 4, 11/09/2023, 11/24/2022, Additional history exists Colonoscopy Discontinued 05/12/2021, 05/12/2021 Colorectal Cancer Screening Discontinued Pneumococcal Vaccine: 65+ Years Completed 3 CT Colonography Discontinued FIT-DNA Discontinued FIT Discontinued FOBT Discontinued Sigmoidoscopy Discontinued Procedures Procedure Name Priority Date/Time Associated Diagnosis Comments NM KARSTEN PERF SPECT REST STR 08/11/2024 1:51 PM EDT STRESS TEST LEXISCAN Routine 08/10/2024 2:14 PM EDT URINE CULTURE Routine 07/07/2024 9:09 AM EDT MRI HEAD/BRAIN WO/W CONTR 06/24/2024 1:48 PM EDT MR CERVICAL SPINE WO/W CON 06/24/2024 11:50 AM EDT [facility] CREATININE Routine 06/24/2024 7:50 AM EDT from Last 3 Months Results * NM KARSTEN PERF SPECT REST STR (08/11/2024 1:51 PM EDT) Anatomical Region Laterality Modality Other 08/11/2024 1:51 PM EDT Narrative 08/11/2024 1:52 PM EDT The [address] [address] Nuclear Medicine Report Signed Patient: OZZIE GIFFORD MR#: [id number] : 1950 Acct:[id number] Age/Sex: 74 / F ADM Date: 08/10/24 Loc: NM Attending Dr: NICOLAS SALVADOR Ordering Physician: NICOLAS SALVADOR Date of Service: 08/10/24 Procedure(s): NM karsten perf SPECT rest str Accession Number(s): [id number] cc: Aleena Collado NP; NICOLAS SALVADOR Patient Name: OZZIE GIFFORD MR#: [id number] : 1950 Exam Date: 08/10/2024 Ordering Doctor: DR NICOLAS SALVADOR M.D. RADIOLOGY REPORT PROCEDURE: NM KARSTEN PERF SPECT REST STR COMPARISON: None. INDICATIONS: CORONARY ARTERY DISEASE, SHORTNESS OF BREATH TECHNIQUE: Exam Description: Stress/Rest one day protocol gated SPECT Rest Imagin.8 mCi Tc-99m Cardiolite IV on 08/10/2024 Stress Imaging 31.2 mCi Tc-99m Cardiolite IV on 08/10/2024 Exercise Protocol: 0.4 mg Lexiscan given IV Heart Rate (bpm): Rest: 63 Max: 90 PMHR: 62 Blood Pressure: Rest: 130/74 Max: 134/72 Symptoms: Rest and peak stress ECG findings were pending and the EKG portion of the study was pending per attending physician [facility] . For more details please see separate cardiac stress test report. FINDINGS: QUALITY OF STUDY: Good PERFUSION DEFECT: None LOCATION: SIZE: SEVERITY: TYPE: WALL MOTION: Global normal LV SIZE: 47 mL. TID / TCD: 0.9 LVEF: Calculated EF 82%. SUMMARY: Normal myocardial perfusion imaging study CONCLUSION: Normal myocardial perfusion stress images without evidence of ischemia or infarction Normal left ventricle systolic function, ejection fraction 82% No transient ischemic dilatation, TID 0.9 EKG portion of stress test is reported separately Dictated by: Sanchez Delgado MD on 08/11/2024 at 13:48 Approved by: Sanchez Delgado MD on 08/11/2024 at 13:51 Dictated By: Sanchez Delgado M.D. Signed By: 08/11/24 1352 DD/ 1351 TD/TT: Marine Driller: Procedure Note Radiology, Radiologist, - 08/11/2024 [place] [address] Nuclear Medicine Report Signed Patient: OZZIE GIFFORD BMR#: [id number] : 1950cct:[id number] Age/Sex: 74 / FADM Date: 08/10/24 Loc: NM Attending Dr: NICOLAS SALVADOR Ordering Physician: NICOLAS SALVADOR Date of Service: 08/10/24 Procedure(s): NM karsten perf SPECT rest str Accession Number(s): [id number] cc: Aleena Collado MANAGER HIV; NICOLAS SALVADOR Patient Name: OZZIE GIFFORD MR#: [id number] : 1950 Exam Date: 08/10/2024 Ordering Doctor: DR NICOLAS SALVADOR M.D. RADIOLOGY REPORT PROCEDURE: NM KARSTEN PERF SPECT REST STR COMPARISON: None. INDICATIONS: CORONARY ARTERY DISEASE, SHORTNESS OF BREATH TECHNIQUE: Exam Description: Stress/Rest one day protocol gated SPECT Rest Imagin.8 mCi Tc-99m Cardiolite IV on 08/10/2024 Stress Imaging 31.2 mCi Tc-99m Cardiolite IV on 08/10/2024 Exercise Protocol: 0.4 mg Lexiscan given IV Heart Rate (bpm): Rest: 63 Max: 90 PMHR: 62 Blood Pressure: Rest: 130/74 Max: 134/72 Symptoms: Rest and peak stress ECG findings were pending and the EKG portion of the study was pending per attending physician [facility] . For more details pleasesee separate cardiac stress test report. FINDINGS: QUALITY OF STUDY: Good PERFUSION DEFECT: None LOCATION: SIZE: SEVERITY: TYPE: WALL MOTION: Global normal LV SIZE: 47 mL. TID / TCD: 0.9 LVEF: Calculated EF 82%. SUMMARY: Normal myocardial perfusion imaging study CONCLUSION: Normal myocardial perfusion stress images without evidence of ischemia or infarction Normal left ventricle systolic function, ejection fraction 82% No transient ischemic dilatation, TID 0.9 EKG portion of stress test is reported separately Dictated by: Sanchez Delgado MD on 08/11/2024 at 13:48 Approved by: Sanchez Delgado MD on 08/11/2024 at 13:51 Dictated By: Sanchez Delgado M.D. Signed By:08/11/24 1352 DD/ 1351 TD/TT: Marine Driller: us Generic External Data Provider [facility] Final Result * STRESS TEST LEXISCAN (08/10/2024 2:14 PM EDT) Anatomical Region Laterality Modality Heart Other us Nicolas Salvador MD CV STRESS PROCEDURES Final R esult * URINE CULTURE (07/07/2024 9:09 AM EDT) us Alexandr Granado MD LAB BLOOD ORDERABLES Final R esult * MRI HEAD/BRAIN WO/W CONTR (06/24/2024 1:48 PM EDT) Anatomical Region Laterality Modality Radiographic Alanis ging 06/24/2024 1:48 PM EDT Narrative 06/24/2024 1:50 [place] [address] Magnetic Resonance Report Signed Patient: OZZIE GIFFORD MR#: [id number] : 1950 Acct:[id number] Age/Sex: 74 / F ADM Date: 06/24/24 Loc: LAB Attending Dr: José Manuel Mcleod NP Ordering Physician: José Manuel Mcleod NP Date of Service: 06/24/24 Procedure(s): MR head/brain wo/w con Accession Number(s): [id number] cc: Aleena Collado MANAGER HIV; José Manuel Mcleod NP The [place] [id number] Patient Name: OZZIE GIFFORD MRN: [id number] date: 1950 Sex: F Assigned Patient Location: LAB Current Patient Location: LAB Accession/Order Number: [id number] Exam Date: 06/24/2024 13:40 Report Date: 06/24/2024 [...] Sung M.D. 06/24/2024 1:48 PM Dictation Location: [place] [address] Electronically authenticated by: [id number] Y Date: 06/24/2024 13:48 Dictated By: Kobe Sung M.D. Signed By: 06/24/24 1355 DD/ 1348 TD/TT: Marine Driller: Procedure Note Radiology, Radiologist, MD - 06/24/2024 [place] [address] Magnetic Resonance Report Signed Patient: OZZIE GIFFORD BMR#: [id number] : 9Acct:[id number] Age/Sex: 74 / FADM Date: 06/24/24 Loc: LAB Attending Dr: José Manuel Mcleod NP Ordering Physician: José Manuel Mcleod NP Date of Service: 06/24/24 Procedure(s): MR head/brain wo/w con Accession Number(s): [id number] cc: Aleena Collado MANAGER HIV; José Manuel Mcleod NP [place] [address] Patient Name: OZZIE GIFFORD MRN: [id number] date: 1950 Sex: F Assigned Patient Location: LAB Current Patient Location: LAB Accession/Order Number: [id number] Exam Date: 06/24/2024 13:40 Report Date: 06/24/2024 [...] Sung M.D. 06/24/2024 1:48 PM Dictation Location: [place] [address] Electronically authenticated by: [id number] Y Date: 3:48 Dictated By: Kobe Sung M.D. Signed By:06/24/24 1350 DD/ 1348 TD/TT: Marine Driller: José Manuel Mcleod NP IMG XR PROCEDURES Final Result * MR CERVICAL SPINE WO/W CON (06/24/2024 11:50 AM EDT) Anatomical Region Laterality Modality Other 06/24/2024 11:5 0 AM EDT Narrative 06/24/2024 11:52 [place] [address] Magnetic Resonance Report Signed Patient: OZZIE GIFFORD MR#: [id number] : 1950 Acct:[id number] Age/Sex: 74 / F ADM Date: 06/24/24 Loc: LAB Attending Dr: José Manuel Mcleod NP Ordering Physician: José Manuel Mcleod NP Date of Service: 06/24/24 Procedure(s): MR cervical spine wo/w con Accession Number(s): [id number] cc: Aleena Collado MANAGER HIV; José Manuel Mcleod NP The [place] [address] Patient Name: OZZIE GIFFORD MRN: [id number] date: 1950 Sex: F Assigned Patient Location: LAB Current Patient Location: LAB Accession/Order Number: [id number] Exam Date: 06/24/2024 11:38 Report Date: 06/24/2024 [...] Sung M.D. 06/24/2024 11:50 AM Dictation Location: [place] [address] Electronically authenticated by: [id number] Y Date: 06/24/2024 11:50 Dictated By: Kobe Sung M.D. Signed By: 06/24/24 1152 DD/ 1150 TD/TT: Marine Driller: Procedure Note Radiology, Radiologist, MD - 06/24/2024 [place] [address] Magnetic Resonance Report Signed Patient: OZZIE GIFFORD BMR#: [id number] : 9Acct:[id number] Age/Sex: 74 / FADM Date: 06/24/24 Loc: LAB Attending Dr: José Manuel Mcleod NP Ordering Physician: José Manuel Mcleod NP Date of Service: 06/24/24 Procedure(s): MR cervical spine wo/w con Accession Number(s): [id number] cc: Aleena Collado MANAGER HIV; José Manuel Mcleod NP [place] [address] Patient Name: OZZIE GIFFORD MRN: [id number] date: 1950 Sex: F Assigned Patient Location: LAB Current Patient Location: LAB Accession/Order Number: [id number] Exam Date: 06/24/2024 11:38 Report Date: 06/24/2024 [...] Sung M.D. 06/24/2024 11:50 AM Dictation Location: [place] [address] Electronically authenticated by: [id number] Y Date: 1:50 Dictated By: Kobe Sung M.D. Signed By:06/24/24 1152 DD/ 1150 TD/TT: Marine Driller: José Manuel Mcleod NP [facility] Final Result * TBH CREATININE (06/24/2024 7:50 AM EDT) CREATININE 0.68 0.55 - 1.02 mg/dL TBH TBH EGFR-AF CANADIAN >60 >=60 mL/min/1.7 3m 2 TBH TBH EGFR-NON AF CANADIAN >60 >=60 mL/min/1.7 3m 2 TBH 06/24/2024 7:50 AM EDT 06/24/2024 7:51 AM EDT Narrative [facility] - 06/24/2024 8:09 AM EDT José Manuel Mcleod NP [facility]INIS[facility]NC Final Result [facility] TB from Last 3 Months Insurance [employer] MEDICARE ADVANTAGE Care Teams Cadastral Surveyor Relationship Specialty Start Date End Date Gerry Godwin MD [address] [place] [address] PCP - General Family Medicine 12/12/23 Gerry Godwin MD [address] [place] [address] PCP - Donald ZARCO 04/11/24 Aleena Collado NP [address] [place] [address] Nurse Practitioner Family Medicine 10/03/23 Obed Walls DO [address] [place] [address] Otolaryngology 12/02/23 Vish Zazueta DO [address] [address] Referring Physician Neurology 12/09/23 Ynes Snyder NP [address] [place] [address] Nurse Practitioner Neurology 12/09/23 José Manuel Mcleod NP [address] [place] [address] Nurse Practitioner Neurology 12/09/23 Milton Piña MA [address] [place] [address] Family Medicine 01/21/24
--- OUTSIDE RECORDS SUMMARY | 2024-08-20 10:02 | XMS_ITS | Encounter Summary ---
Author Organization [facility] Address [address] [place] [address] Care Team Providers Care Accounting Tutor Name Role Phone Shaikh PEEWEE Day Primary Care Provider [phone] Aleena Collado IGNITION SPECIALIST Unavailable [phone] Gerry Godwin MD Primary Care Provider [phone] Shaikh PEEWEE Day Unavailable [phone] Obed Walls DO Unavailable Unallocated, Noms Provider Primary Care Provi neftali Vish Zazueta DO Unavailable Ynes Snyder IGNITION SPECIALIST Unavailable [phone] Jessica Ceballos NP Unavailable Unavailable Gerry Godwin MD Primary Care Provider [phone] Milton Piña MA Unavailable [phone] Gerry Godwin MD Unavailable Encounter Details Date Type Department Care Team (Late st Contact Info) Description 08/26/2023 [facility] Only [facility] [address] [place] [address] Shaikh Day MD [address] [place] [address] Social History Tobacco Use Types Packs/Day Years [...] Visit [facility] [address] [place] [address] Aleena Collado NP [address] [place] [address] documented as of this encounter Procedures Procedure [...] documented as of this encounter Care Teams Accounting Tutor Relationship Specialty Start Date End Date Shaikh Day MD [address] [place] [address] PCP - General Internal Medicine 05/15/23 10/02/23 Gerry Godwin MD [address] [place] [address] PCP - General Family Medicine 10/03/23 12/02/23 Shaikh Day MD [address] [place] [address] PCP - Donald ZARCO 10/13/23 02/11/24 Unallocated, Kristi Nichole MD [address] [place] [address] PCP - General Family Medicine 12/03/23 12/11/23 Gerry Godwin MD [address] [place] [address] PCP - General Family Medicine 12/12/23 Gerry Godwin MD [address] [place] [address] PCP - Donald ZARCO 04/11/24 Aleena Collado NP [address] [place] [address] Nurse Practitioner Family Medicine 10/03/23 Obed Walls DO [address] [place] [address] Otolaryngology 12/02/23 Vish Zazueta DO [address] [address] Referring Physician Neurology 12/09/23 Ynes Snyder, SANDRA [address] [address] Nurse Practitioner Neurology 12/09/23 Jessica Ceballos NP [address] [address] Nurse Practitioner Neurology 12/09/23 Milton Piña MA [address] [place] [address] Family Medicine 01/21/24 documented as of this encounter
--- OUTSIDE RECORDS SUMMARY | 2024-08-20 10:02 | XMS_ITS | Encounter Summary ---
Author Organization [facility] Address [address] [place] [address] Care Team Providers Care Thermal Technician Name Role Phone Aleena Collado DEPUTY COURT Unavailable [phone] Obed Walls DO Unavailable Vish Zazueta DO Unavailable Ynes Snyder DEPUTY COURT Unavailable [phone] Jessica Ceballos NP Unavailable Unavailable Gerry Godwin MD Primary Care Provider [phone] Milton Piña MA Unavailable [phone] Gerry Godwin MD Unavailable Encounter Details Date Type Department Care Team (Late st Contact Info) Description 08/11/2024 Clinisync Result Encounter [facility] External Department [...] week 01/27/2024 How often do you attend anglican or bahai serv ices? Never 01/27/2024 Do you belong to any clubs o r organizations such as anglican groups, unions, fraternal or athletic groups, or [...] Recorded Patient Health Questionnaire-2 Score 0 09/09/2023 [facility] - Occupational Stress Questionnaire Answer [...] the past [address] [facility], were you homeless or living in a detention (including now)? No 01/27/2024 Comments Unknown Sex and Gender Information Value Date Recorded Sex Assigned at Not on file Legal Sex Female 6:38 PM EDT Gender Identity Not on file Sexual Orientation Not on file documented as of this encounter Plan of Treatment Upcoming Encounters Date Type Department Care Team (Late st Contact Info) Description 11/12/2024 9:40 AM EDT Office Visit [facility] [address] [place] [address] Aleena Collado NP [address] [place] [address] documented as of this encounter Procedures Procedure Name Priority Date/Time Associated Diagnosis Comments NM KARSTEN PERF SPECT REST STR 08/11/2024 1:51 PM EDT documented in this encounter Results * NM KARSTEN PERF SPECT REST STR (08/11/2024 1:51 PM EDT) Anatomical Region Laterality Modality Other 08/11/2024 1:51 PM EDT Narrative 08/11/2024 1:52 [place] [address] Nuclear Medicine Report Signed Patient: OZZIE LUNA MR#: [id number] : 1950 Acct:[id number] Age/Sex: 74 / F ADM Date: 08/10/24 Loc: [place] Attending Dr: NICOLAS SALVADOR Ordering Physician: NICOLAS SALVADOR Date of Service: 08/10/24 Procedure(s): NM karsten perf SPECT rest str Accession Number(s): [id number] cc: Aleena Collado NP; NICOLAS SALVADOR Patient Name: OZZIE LUNA MR#: [id number] : 1950 Exam Date: 08/10/2024 Ordering Doctor: [...] the study was pending per attending physician [facility] . For more details please see separate [...] Signed By: 08/11/24 1352 DD/ 1351 TD/TT: Cmm Programmer: Procedure Note Radiology, Radiologist, MD - 08/11/2024 [place] [address] Nuclear Medicine Report Signed Patient: OZZIE LUNA BMR#: [id number] : 1950cct:[id number] Age/Sex: 74 / FADM Date: 08/10/24 Loc: [place] Attending Dr: NICOLAS SALVADOR Ordering Physician: NICOLAS SALVADOR Date of Service: 08/10/24 Procedure(s): NM karsten perf SPECT rest str Accession Number(s): [id number] cc: Aleena Collado DEPUTY COURT; NICOLAS SALVADOR Patient Name: OZZIE LUNA MR#: [id number] : 1950 Exam Date: 08/10/2024 Ordering Doctor: [...] the study was pending per attending physician [facility] . For more details pleasesee separate cardiac [...] M.D. Signed By:08/11/24 1352 DD/ 1351 TD/TT: Cmm Programmer: us Generic External Data Provider [facility] Final Result documented in this encounter Visit Diagnoses Not on filedocumented in this encounter Additional Health Concerns Assessment Noted Time PHQ-9 Depression Total Score: 0 06/03/19 24 6:24 PM EDT A fall risk assessment has been complete d for the patient 01/27/2024 9:56 AM EST documented as of this encounter Care Teams Thermal Technician Relationship Specialty Start Date End Date Gerry Godwin MD [address] [place] [address] PCP - General Family Medicine 12/12/23 Gerry Godwin MD [address] [place] [address] PCP - Donald ZARCO 04/11/24 Aleena Collado NP [address] [place] [address] Nurse Practitioner Family Medicine 10/03/23 Obed Walls DO [address] [place] [address] Otolaryngology 12/02/23 Vish Zazueta DO [address] [address] Referring Physician Neurology 12/09/23 Ynes Snyder NP [address] [address] Nurse Practitioner Neurology 12/09/23 Jessica Ceballos NP [address] [address] Nurse Practitioner Neurology 12/09/23 Milton Piña, HAROLDO [address] [place] [address] Family Medicine 01/21/24 documented as of this encounter
--- OUTSIDE RECORDS SUMMARY | 2024-08-20 10:02 | XMS_ITS | Encounter Summary ---
Author Organization [employer] Address [id number] [address] [place] [address] Care Team Providers Care Supervisor Area Name Role Phone Gerry Godwin MD Primary Care Provider [phone] Encounter Details Date Type Department Care Team (Late st Contact Info) Description 02/19/2023 Orders Only [facility] [address] [place] [address] Ref Prov, [place] [address] Social History Tobacco Use Types Packs/Day Years [...] as of this encounter Care Teams Supervisor Area Relationship Specialty Start Date End Date Gerry Godwin MD PCP - General Family Medicine 04/07/18 documented as of this encounter
--- OUTSIDE RECORDS SUMMARY | 2024-08-20 10:02 | XMS_ITS | Clinical Summary ---
Author Organization [employer] Address [facility] [id number] [address] [place] [address] Care Team Providers Care Edge Roller Name Role Phone Gerry Godwin MD Primary Care Provider [phone] Allergies Active Allergy Reactions Criticality Noted Date [...] outpatient therapy. Medical Devices Implanted Type Area Librarian Specialist Device Identifier Shelf Expiration Date Model / Serial / Lot Sys Crd Rvl Linq Rpl [id number] - [id number] - [id number] Implanted:Qty: 1 on 04/08/[address] [facility] Other Implant MED[employer]ON[employer] CARD RHYTHM DEVICES 03/10/2019 [employer] / [id number] / Insurance [facility] MEDICARE Advance Directives * Full Code (Latest Code Status on File) Date Activated Date Inactivated Comments 07/22/2018 6:33 AM 07/24/2018 4:48 PM * Full Code Date Activated Date Inactivated Comments 04/05/2018 3:35 PM 04/10/2018 5:18 PM * Full Code Date Activated Date Inactivated Comments 04/05/2018 10:14 AM 04/05/2018 3:35 PM Care Teams Edge Roller Relationship Specialty Start Date End Date Gerry Godwin MD PCP - General Family Medicine 04/07/18
--- OUTSIDE RECORDS SUMMARY | 2024-08-20 10:02 | XMS_ITS | Encounter Summary ---
Author Organization [facility] Address [address] [place] [address] Care Team Providers Care Head Rigger Name Role Phone Aleena Collado OUTREACH ASSOCIATE Unavailable [phone] Obed Walls DO Unavailable Vish Zazueta DO Unavailable [phone] Ynes Snyder OUTREACH ASSOCIATE Unavailable [phone] Jessica Ceballos NP Unavailable Unavailable Gerry Godwin MD Primary Care Provider Milton Piña MA Unavailable [phone] Gerry Godwin MD Unavailable Encounter Details Date Type Department Care Team (Late st Contact Info) Description 07/07/2024 Orders Only [facility] [address] [place] [address] Alexandr Granado MD [address] [place] [address] Social History [...] week 01/27/2024 How often do you attend yazdanism or druze serv ices? Never 01/27/2024 Do you belong to any clubs o r organizations such as yazdanism groups, unions, fraternal or athletic groups, or [...] time in the past 12 m [facility], were you homeless or living in a [...] Visit [facility] [address] [place] [address] Aleena Collado NP [address] [place] [address] documented as of this encounter Procedures Procedure [...] documented as of this encounter Care Teams Head Rigger Relationship Specialty Start Date End Date Gerry Godwin MD [address] [place] [address] PCP - General Family Medicine 12/12/23 Gerry Godwin MD [address] [place] [address] PCP - Donald ZARCO 04/11/24 Aleena Collado NP [address] [place] [address] Nurse Practitioner Family Medicine 10/03/23 Obed Walls DO [address] [place] [address] Otolaryngology 12/02/23 Vish Zazueta DO [address] [address] Referring Physician Neurology 12/09/23 Ynes Snyder NP [address] [address] Nurse Practitioner Neurology 12/09/23 Jessica Ceballos NP [address] [address] Nurse Practitioner Neurology 12/09/23 Milton Piña, HAROLDO [address] [place] [address] Family Medicine 01/21/24 documented as of this encounter
--- OUTSIDE RECORDS SUMMARY | 2024-08-20 10:02 | XMS_ITS | Encounter Summary ---
Author Organization [facility] Address [address] [place] [address] Care Team Providers Care Supervisor Building Maintenance Name Role Phone Aleena Collado PROFESSOR OF FRENCH Unavailable [phone] Obed Walls DO Unavailable Vish Zazueta DO Unavailable [phone] Ynes Snyder NP Unavailable [phone] Jessica Ceballos NP Unavailable Unavailable Gerry Godwin MD Primary Care Provider Milton Piña MA Unavailable [phone] Gerry Godwin MD Unavailable Encounter Details Date Type Department Care Team (Late st Contact Info) Description 08/11/2024 Bamboo flowsheet [facility] [address] [place] [address] Aleena Collado NP [address] [place] [address] Social History Tobacco Use Types Packs/Day Years [...] week 01/27/2024 How often do you attend oriental orthodox or jewish serv ices? Never 01/27/2024 Do you belong to any clubs o r organizations such as oriental orthodox groups, unions, fraternal or athletic groups, or [...] Recorded Patient Health Questionnaire-2 Score 0 09/09/2023 [facility] Occupat ional Health - Occupational Stress [...] any time in the past 12 m [facility], were you homeless or living in [...] Visit [facility] [address] [place] [address] Aleena Collado NP [address] [place] [address] documented as of this encounter Visit Diagnoses Not on filedocumented in this encounter Additional Health Concerns Assessment Noted Time PHQ-9 Depression Total Score: 0 06/03/19 24 6:24 PM EDT A fall risk assessment has been complete d for the patient 01/27/2024 9:56 AM EST documented as of this encounter Care Teams Supervisor Building Maintenance Relationship Specialty Start Date End Date Gerry Godwin MD [address] [place] [address] PCP - General Family Medicine 12/12/23 Gerry Godwin MD [address] [place] [address] PCP - Donald ZARCO 04/11/24 Aleena Collado NP [address] [place] [address] Nurse Practitioner Family Medicine 10/03/23 Obed Walls DO [address] [place] [address] Otolaryngology 12/02/23 Vish Zazueta DO [address] [address] Referring Physician Neurology 12/09/23 Ynes Snyder, SANDRA [address] [address] Nurse Practitioner Neurology 12/09/23 Jessica Ceballos NP [address] [address] Nurse Practitioner Neurology 12/09/23 Milton Piña MA [address] [place] [address] Family Medicine 01/21/24 documented as of this encounter
--- OUTSIDE RECORDS SUMMARY | 2024-08-20 10:02 | XMS_ITS | Encounter Summary ---
Author Organization [facility] Address [address] [place] [address] Care Team Providers Care Artificial Stone Setter Name Role Phone Shaikh PEEWEE Day Primary Care Provider [phone] Aleena Collado MC KAY STITCHER Unavailable [phone] Gerry Godwin MD Primary Care Provider [phone] Shaikh PEEWEE Day Unavailable [phone] Obed Walls DO Unavailable [phone] Unallocated, Noms Provider Primary Care Provi neftali Vish Zazueta DO Unavailable Ynes Snyder MC KAY STITCHER Unavailable [phone] Jessica Ceballos NP Unavailable Unavailable Gerry Godwin MD Primary Care Provider [phone] Milton Piña MA Unavailable [phone] Gerry Godwin MD Unavailable Encounter Details Date Type Department Care Team (Late st Contact Info) Description 08/26/2023 Clinisync Result Encounter [facility] External Department Unsolicited Shaikh Day MD [address] [place] [address] Social History Tobacco Use Types [...] Visit [facility] [address] [place] [address] Aleena Collado NP [address] [place] [address] documented as of this encounter Procedures Procedure Name Priority Date/Time Associated Diagnosis Comments [place] MODIFIED BARIUM SWALLOW 08/26/2023 10:53 AM EDT documented in this encounter Results * [place] MODIFIED BARIUM SWALLOW (08/26/2023 10:53 AM EDT) Anatomical Region Laterality Modality Radiographic Alanis ging 08/26/2023 10:5 3 AM EDT Narrative 08/26/2023 10:55 AM EDT [address] [address] Fluoroscopy Report Signed Patient: OZZIE GIFFORD MR#: [id number] : 1950 Acct:[id number] Age/Sex: 73 / F ADM Date: 08/26/23 Loc: [place] Attending Dr: Shaikh Barb Krueger Ordering Physician: Shaikh Pati Day Date of Service: 08/26/23 Procedure(s): FL modified barium swallow Accession Number(s): [id number] cc: Shaikh Pati Day [address] [address] Patient Name: OZZIE GIFFORD MRN: [id number] date: 1950 Sex: F Assigned Patient Location: ID Current Patient Location: ID Accession/Order Number: [id number] Exam Date: 08/26/2023 10:00 Report Date: 08/26/2023 [...] Signed By: 08/26/23 1055 DD/ 1053 TD/TT: Wire Turning Machine Operator: Procedure Note Radiology, Radiologist, MD - 08/26/2023 [place] [address] Fluoroscopy Report Signed Patient: OZZIE GIFFORD BMR#: [id number] : 1950cct:[id number] Age/Sex: 73 / FADM Date: 08/26/23 Loc: [place] Attending Dr: Shaikh Barb Krueger Ordering Physician: Shaikh Pati Day Date of Service: 08/26/23 Procedure(s): FL modified barium swallow Accession Number(s): [id number] cc: Shaikh Pati Day [address] [place] [id number] Patient Name: OZZIE GIFFORD MRN: [id number] date: 1950 Sex: F Assigned Patient Location: ID Current Patient Location: ID Accession/Order Number: [id number] Exam Date: 08/26/2023 10:00 Report Date: 08/26/2023 [...] M.D. Signed By:08/26/23 1055 DD/ 1053 TD/TT: Wire Turning Machine Operator: Shaikh Barb [place] IMG XR PROCEDURES Final Result documented in this encounter Visit Diagnoses Not on filedocumented in this encounter Additional Health Concerns Assessment Noted Time PHQ-9 Depression Total Score: 0 06/03/19 6:24 PM EDT documented as of this encounter Care Teams Artificial Stone Setter Relationship Specialty Start Date End Date Shaikh Day MD [address] [place] [address] PCP - General Internal Medicine 05/15/23 10/02/23 Gerry Godwin MD [address] [place] [address] PCP - General Family Medicine 10/03/23 12/02/23 Shaikh Day MD [address] [place] [address] PCP - Donald ZARCO 10/13/23 02/11/24 Unallocated, Noms MD [address] [place] [address] PCP - General Family Medicine 12/03/23 12/11/23 Gerry Godwin MD [address] [place] [address] PCP - General Family Medicine 12/12/23 Gerry Godwin MD [address] [place] [address] PCP - Donald ZARCO 04/11/24 Aleena Collado NP [address] [place] [address] Nurse Practitioner Family Medicine 10/03/23 Obed Walls DO [address] [place] [address] Otolaryngology 12/02/23 Vish Zazueta DO [address] [address] Referring Physician Neurology 12/09/23 Ynes Snyder NP [address] [address] Nurse Practitioner Neurology 12/09/23 Jessica Ceballos NP [address] [address] Nurse Practitioner Neurology 12/09/23 Milton Piña MA [address] [place] [address] Family Medicine 01/21/24 documented as of this encounter
--- OUTSIDE RECORDS SUMMARY | 2024-08-20 10:02 | XMS_ITS | Encounter Summary ---
Author Organization [facility] Address [address] [place] [address] Care Team Providers Care Ironworker Foreman Name Role Phone Aleena Collado FORENSIC CHEMIST Unavailable [phone] Obed Walls DO Unavailable [phone] Vish Zazueta DO Unavailable Ynes Snyder NP Unavailable [phone] Jessica Ceballos NP Unavailable Unavailable Gerry Godwin MD Primary Care Provider [phone] Milton Piña MA Unavailable [phone] Gerry Godwin MD Unavailable Encounter Details Date Type Department Care Team (Late st Contact Info) Description 08/17/2024 Refill [facility] [address] [place] [address] Aleena Collado FORENSIC CHEMIST [address] [place] [address] Peripheral vascular disease, unspecified (Primary Dx); Atherosclerosis of coronary artery of [place] heart, unspecified vessel or lesion type, unspecified whether angina present ; Stenosis of carotid artery, unspecified laterality Social History Tobacco Use Types Packs/Day Years [...] week 01/27/2024 How often do you attend presybeterian or scientologist serv ices? Never 01/27/2024 Do you belong to any clubs o r organizations such as presybeterian groups, unions, fraternal or athletic groups, or [...] Recorded Patient Health Questionnaire-2 Score 0 09/09/2023 [facility] of Occupat ional Health - Occupational Stress [...] in the past 12 m [facility], were you homeless or living in a [...] Visit [facility] [address] [place] [address] Aleena Collado NP [address] [place] [address] documented as of this encounter Visit Diagnoses Diagnosis Peripheral vascular disease, unspecified- Primary Atherosclerosis of coronary artery of [place] heart, unspecified vessel or lesion type, unspecified whether angina present Stenosis of carotid artery, unspecified laterality documented in this encounter Additional Health Concerns Assessment Noted Time PHQ-9 Depression Total Score: 0 06/03/19 24 6:24 PM EDT A fall risk assessment has been complete d for the patient 01/27/2024 9:56 AM EST documented as of this encounter Care Teams Ironworker Foreman Relationship Specialty Start Date End Date Gerry Godwin MD [address] [place] [address] PCP - General Family Medicine 12/12/23 Gerry Godwin MD [address] [place] [address] PCP - Donald ZARCO 04/11/24 Aleena Collado NP [address] [place] [address] Nurse Practitioner Family Medicine 10/03/23 Obed Walls DO [address] [place] [address] Otolaryngology 12/02/23 Vish Zazueta DO [address] [address] Referring Physician Neurology 12/09/23 Ynes Snyder NP [address] [address] Nurse Practitioner Neurology 12/09/23 Jessica Ceballos NP [address] [address] Nurse Practitioner Neurology 12/09/23 Milton Piña, HAROLDO [address] [place] [address] Family Medicine 01/21/24 documented as of this encounter
--- OUTSIDE RECORDS SUMMARY | 2024-08-20 10:03 | XMS_ITS | Clinical Summary ---
Author Organization [facility] Address [address] [place] [address] Care Team Providers Care Film Vault Supervisor Name Role Phone Aleena Collado MD Primary Care Provider [phone] Allergies Active Allergy Reactions Criticality Noted Date [...] accident (CVA), unspecified mechanism (CMS/HCC),Atherosc lerosis of [place] coronary artery of [place] heart without angina pectoris,Primary hypertension,SARAVIA (dyspnea on [...] 20 mg tabletIndications: Coronary artery disease involving [place] coronary artery of [place] heart without angina pectoris,Carotid artery stenosis, asymptomatic, [...] Description 07/22/2024 10:45 AM EDT Office Visit [facility] [place] [address] [place] [address] Ruben Carrillo MD Coronary artery disease involving [place] coronary artery of [place] heart with other form of angina pectoris (Primary Dx); Primary hypertension; Carotid artery stenosis, asymptomatic, bilateral; Shortness of breath from Last 3 Months Immunizations Immunization Administration Dates Next Due DTP 11/18/2020 Influenza, High Dose Seasonal, Preservative Free 12/22/2018 Influenza, High-dose Seasona l, Quadrivalent, Preservative Free 12/09/2019 Influenza, Seasonal, Quadrivalent, Adjuvanted ,11/26/2020 Clarence Sars-Cov-2 Vaccination 06/11/2020 Novel [id number], preservative-free 02/17 Family History Medical History Relation [...] 2013 COVID-19 Vaccine ( season) 2023 06/11/2020 Influenza Vaccine (#1) 2024 4, 11/24/2022, 01/20/2022, Additional history exists Colonoscopy Discontinued 05/12/2021 Colorectal Cancer Screening Discontinued Pneumococcal Vaccine: 50+ Years Completed 11/24/2022 CT Colonography Discontinued FIT-DNA Discontinued FIT Discontinued [...] Discontinued Insurance [employer] Care Teams Film Vault Supervisor Relationship Specialty Start Date End Date Aleena Collado MD [address] [place] [address] PCP - General Nurse Practitioner 07/21/24
--- OUTSIDE RECORDS SUMMARY | 2024-08-20 10:03 | XMS_ITS | Encounter Summary ---
Author Organization [facility] Address [address] [place] [address] Care Team Providers Care Javascript Ui Developer Name Role Phone Shaikh PEEWEE Day Primary Care Provider [phone] Aleena Collado NP Unavailable [phone] Gerry Godwin MD Primary Care Provider [phone] Shaikh PEEWEE Day Unavailable [phone] Obed Walls DO Unavailable [phone] Unallocated, Noms Provider Primary Care Provi neftali Vish Zazueta DO Unavailable Ynes Snyder NAVIGATION OFFICER Unavailable [phone] Jessica Ceballos NP Unavailable Unavailable Gerry Godwin MD Primary Care Provider [phone] Milton Piña MA Unavailable [phone] Gerry Godwin MD Unavailable Encounter Details Date Type Department Care Team (Late st Contact Info) Description 07/17/2023 Orders Only [facility] [address] [place] [address] Carmen Quintero NP [address] [place] [id number] Social History Tobacco Use Types Packs/Day [...] Visit [facility] [address] [place] [address] Aleena Collado NP [address] [place] [address] documented as of this encounter Procedures Procedure Name Priority Date/Time Associated Diagnosis Comments SCANNED LABS Routine 07/17/2023 2:06 PM EDT documented in this encounter Results * SCANNED LABS (07/17/2023 2:06 PM EDT) Carmen Quintero NAVIGATION OFFICER LAB CHG PERFORMABLES Final Resu lt documented in this encounter Visit Diagnoses Not on filedocumented in this encounter Additional Health Concerns Assessment Noted Time PHQ-9 Depression Total Score: 0 06/03/19 24 6:24 PM EDT documented as of this encounter Care Teams Javascript Ui Developer Relationship Specialty Start Date End Date Shaikh Day MD [address] [address] PCP - General Internal Medicine 05/15/23 10/02/23 Gerry Godwin MD [address] [place] [address] PCP - General Family Medicine 10/03/23 12/02/23 Shaikh Day MD [address] [place] [address] PCP - Donald ZARCO 10/13/23 02/11/24 Unallocated, Kristi Nichole MD [address] [place] [address] PCP - General Family Medicine 12/03/23 12/11/23 Gerry Godwin MD [address] [place] [address] PCP - General Family Medicine 12/12/23 Gerry Godwin MD [address] [place] [address] PCP - Donald ZARCO 04/11/24 Aleena Collado NP [address] [place] [address] Nurse Practitioner Family Medicine 10/03/23 Obed Walls DO [address] [place], [place] [id number] Otolaryngology 12/02/23 Vish Zazueta DO [address] [address] Referring Physician Neurology 12/09/23 Ynes Snyder, SANDRA [address] [address] Nurse Practitioner Neurology 12/09/23 Jessica Ceballos NP [address] [address] Nurse Practitioner Neurology 12/09/23 Milton Piña MA [address] [place] [address] Family Medicine 01/21/24 documented as of this encounter
== END 2024-08-20 10:00 | disposition home or self-care (01) ==
LOC: CARD 09:59
PROVIDERS: PCP Nurse Practitioner; Visit Provider Internal Medicine Interventional Cardiology
DX: I25.118 Atherosclerotic heart disease of native coronary artery with other forms of angina pectoris (principal); R06.02 Shortness of breath
CPT/HCPCS: 93306

== ENCOUNTER 2024-12-04 07:17 | Outpatient (OUT) | payer MEDICARE, SELFPAY ==
--- OUTSIDE RECORDS SUMMARY | 2024-12-03 08:34 | XMS_ITS | Continuity of Care Document ---
Author Organization [facility] Address [address] [place] [address] Phone Care Team Providers Care Docking Saw Operator Name Role Phone Aleena Collado JUNIOR WEB DESIGNER-C Primary Care Provider Aleena Collado JUNIOR WEB DESIGNER-C Attending Provider Jessica Ceballos APRN-CASTING MACHINE OPERATOR AUTOMATIC-C Attending Provider + Care Teams Patient Care Team Team Status: Active Member Role/Relationship Status Dates Aleena Collado JUNIOR WEB DESIGNER-C Primary Care Provider Active Visit Care Team Team Status: Active Member Role/Relationship Status Dates Aleena Collado JUNIOR WEB DESIGNER-C Primary Care Provider Active Start: November 24, 2024 Aleena Collado JUNIOR WEB DESIGNER-CAttending ProviderActiveStart: November 24, 2024 Visit Care Team Team Status: Inactive Member Role/Relationship Status Dates Aleena Collado JUNIOR WEB DESIGNER-C Primary Care Provider Active Start: November 26, 2024 End: November 26, 2024Aleena Collado JUNIOR WEB DESIGNER-CAttending ProviderActiveStart: November 26, 2024 End: November 26, 2024 Patient Care Team Team Status: Inactive Member Role/Relationship Status Dates Aleena Collado JUNIOR WEB DESIGNER-C Primary Care Provider Active Start: December 03, 2024 End: December 03, 2024Jessica Ceballos APRN-FNP-CAttending ProviderActive Start: December 03, 2024 End: December 03, 2024 Chief Complaint and Reason for Visit Chief Complaint Admit Date R47.01 November 24, 2024 1 0:15am 3M November 26, 2024 9 :05am 3 Month Follow up December 03, 2024 1 1:35am Reason for Visit Admit Date Dizziness and giddiness November 26 9:05am Episode of recurrent major depressive di sorder November 26, 2024 9:05am Essential hypertension November 26 9:05am CRYSTAL (generalized anxiety disorder) Octob er 2024 9:05am Migraine with aura and witho ut status migrainosus, not intractable November 26, 2024 9:05am Ataxia December 03, 2024 1 1:35am Gait instability December 03, 2024 1 1:35am Ischemic stroke December 03, 2024 1 1:35am Aphasia December 03, 2024 1 1:35am Allergies, Adverse Reactions, Alerts Allergen Type Severity Reaction Last Updated Verified Status Penicillins Allergy Unknown Rash December 03, 2024 11:30am Y es Active Social History Smoking Status Status Start Date End Date Date of Observa tion Ex-smoker (finding) April 12, 2023 1:09pm Observation Status Observation Response Date of Response Legal Sex Female (finding) [facility] 1950 Family History Relationship Condition Age at Onset Recorded Date/T darrell father Malignant neoplasm of prostate Unknown Malignant neoplasm of boneUnknownType 2 diabetes mellitusUnknownmotherMalignant neoplasm of brainUnknownmotherMalignant neoplasm of breastUnknownsonDown syndromeUnknowndaughterMalignant neoplasm of lungUnknownbrotherMyocardial infarctionUnknownType 2 diabetes mellitusUnknownfatherMalignant neoplasmUnknown DeceasedUnknownfamily memberDeceasedUnknownmotherDeceasedUnknownMalignant neoplasmUnknownsisterDeceasedUnknownMalignant neoplasmUnknownFamily history of lung cancerUnknown Problems Active Problems Problem Diagnosis/Recorded Date Onset Date Stat us Symptomatic bradycardia November 21, 2021 4:16am Unkn own Active White matter disease Bambi 23rd, 2025 8:57am Unkno wn Active Primary progressive aphasia August 13, 2024 2:48pm Unkn own Active Ischemic stroke August 13, 2024 2:49pm Unknown Act abbe Aphasia due to acute stroke April 11, 2018 10:49am Un known Active Encounter for subsequent [facility] wellness visit (AWV) in Medicare patient November 03, 2024 8:54am Unknown Active Internal carotid artery stent present August 08, 2023 10:32am Unknown Active Major depressive disorder November 23, 2024 12:09pm U nknown Active Lower extremity edema February 20, 2024 12:05pm Unknow n Active CRYSTAL (generalized anxiety disorder) November 03 8:48am Unknown Active Screen for colon cancer December 16, 2018 8:54am Unkn own Active Migraine with aura and witho ut status migrainosus, not intractable November 03, 2024 8:54am Unknown Act abbe Encounter for screening mamm ogram for malignant neoplasm of breast November 03, 2024 8:48am Unknown Act abbe Carotid stenosis March 23, 2020 12:54pm Unknown Active Impaired mobility and activi ties of daily living April 11, 2018 10:49am Unknown Active Muscle spasm November 03, 2024 8:55am Unknown Active Dysarthria November 03, 2024 8:47am Unknown Active Status post placement of imp lantable loop recorder April 11, 2018 11:10am Unknown Active Coronary atherosclerosis November 03, 2024 8:47am U nknown Active Heart failure, unspecified November 03, 2024 8:48am Unknown Active Overflow incontinence of urine November 23, 2024 12:1 2pm Unknown Active Dystonia April 11, 2018 10:53am Unknown Acti ve Anemia April 11, 2018 10:53am Unknown Acti ve Psychophysiological insomnia November 03, 2024 8:56 am Unknown Active Gait instability August 13, 2024 2:47pm Unknown Ac tive Ataxia August 13, 2024 2:47pm Unknown Active Confusion October 26, 2020 6:23pm Unknown Active Peripheral vertigo involving left ear November 03, 2024 8:56am Unknown Active Dysphagia April 11, 2018 10:57am Unknown Acti ve Dizziness and giddiness November 03, 2024 8:47am Un known Active Incontinence November 23, 2024 12:08pm Unknown A ctive Mixed hyperlipidemia November 03, 2024 8:55am Unkno wn Active Chronic UTI November 23, 2024 12:07pm Unknown A ctive Osteoarthritis November 23, 2024 12:12pm Unknown Active On potassium wasting diuretic therapy November 02, 2024 2:01pm Unknown Active Peripheral vascular disease November 03, 2024 8:55a m Unknown Active Essential hypertension November 26, 2024 7:17am Unkno wn Active Episode of recurrent major d epressive disorder November 03, 2024 8:48am Unknown Active DVT prophylaxis April 11, 2018 10:49am Unknown A ctive PAD (peripheral artery disease) February 20, 2024 12:0 5pm Unknown Active AMS (altered mental status) November 21, 2021 4:16am Unknown Active Acute ischemic left MCA stroke April 11, 2018 10:49am Unknown Active Urinary incontinence without sensory awareness November 03, 2024 8:49am Unknown Active H/O traumatic brain injury April 11, 2018 10:58am Unk nown Active Oropharyngeal dysphagia November 03, 2024 8:55am Un known Active Iron deficiency November 03, 2024 8:49am Unknown Active Medications Medication Status Dose Units Route Directions Qty Days Refills S tart Date Stop Date End Date Reason(s) Instructions Adherence Potassium Chloride 10 mEq capsule, extended release Disconti nued 10 MEQ PO Daily 90 0September 2024 2:01pmOctober 2024 6:45amOn potassium wasting diuretic therapy Other termite helper (current) drug therapyPotassium Chloride 10 mEq capsule, extended krxzgueNwuoenjclbzh81MSFDATndsi706Nzmlbub 2024 6:44amOctober 2024 11:48amOn potassium wasting diuretic therapy Other senior living (current) drug therapyIbuprofen 800 mg XyijgfAtbxbdyywfcz160ATQF Three times dailyFebruary 2018 1:00amMarch 2018 7:51amClonazepam 0.5 mg tabletDiscontinued0.5MGPOTwice dailyFebruary 2018 1:00amMarch 2018 7:51amBaclofen 20 mg zzvqcbDqkkwnpolcfs26PRXWBgnzd times dailyFebruary 2018 1:00amSeptember 2024 12:11pmmuscle spamsMetoprolol Succinate 25 mg Tablet Extended Release 24 AnPshsamgfzzal89NWBJGuyudEsmwviae 2018 1:00am April 18, 2018 7:54amLisinopril-Hydrochlorothiazide 10-12.5 mg tablet Yvnexbobfjif2QYRAKUfmcgJurmpzaa 2018 1:00[facility]2018 7:54amNaproxen 500 mg VbzzkjVdaitcpsbqrn452PNFIGnisw daily as needed for PainFebruary 2018 1:[facility] 2018 7:51amBaclofen 20 mg ttmbqyAcsqda70NZHPRyhtf times daily as needed for muscle spamsSeptember 2024 12:06pmComplies with drug therapyRosuvastatin (Crestor) 10 mg FxgvbdXviwkxanqqsu78CCVUJulkivnArjmstjx 2018 1:[facility] 2018 7:54amAspirin 81 mg Tablet,ChewableDiscontinued 81MGPODailyFebruary 2018 1:[facility] 2018 10:24amAspirin 81 mg Tablet,LhwmidxdCilwacfkgpfq37LOTNXfrqt75Kjwxg 2018 1:[facility] 5:28pmAcetaminophen 325 mg QsskroKumrumvzwckg380NTWWY8P as needed for Pain0 0Apr 2018 1:[facility] 5:28pmDocusate Sodium 100 mg Capsule Mmiocyzscxwt347KKABKmbph daily as needed for Qmhseqhigjef05854Llfew 2018 1:00[facility] 2018 10:29amFerrous Sulfate 324 mg (65 mg iron) Tablet,Delayed Release (Dr/Ec)Ninolepnafef930UUYXSevki fbubk92173Obiri 2018 1:00[facility] 2018 10:28amMetoprolol Succinate 25 mg Tablet Extended Release 24 IeTlkshiiismdq22EZGFKwhwz32154Kvvst 2018 7:54amFebruary 2019 5:33pmLisinopril-Hydrochlorothiazide 10-12.5 mg rfehkmWiatbgvchyvz6JKTXN Fldbk47753Prebq 2018 7:[facility] 2019 5:28pmRosuvastatin (Crestor) 10 mg BhcnzlYrfjtonydqsr63UJFMOvfhjpw98374Ynkqf 2018 7:54amApril 2018 12:00amApril 2018 12:02amAcetaminophen 325 mg myvkpeDdmhypexlmog484 - 650MG PODaily as needed for HeadacheFebruary 2019 5:28pmFebruary 2023 10:46amAspirin 81 mg tablet,mvlkvbovCwrrxjqycudh18MQIBFfkom morningFebruary 2019 5:28pmFebruary 2020 1:03pmcvaLisinopril-Hydrochlorothiazide 10- 12.5 mg vuwbwbShhvcmvsktvv9JITWTWhmpz morningFebruary 2019 5:28pmFebruary 2023 10:45amhtnMetoprolol Succinate 25 mg tablet extended release 24 hr Wclhfozdrkmu81QGFLZsujv morningFebruary 2019 5:33pmOctober 2021 1:21pmhtnTrazodone 100 mg tabletDiscontinuedFebruary 2019 1:00amFebruary 2019 6:06pmQuetiapine 50 mg xlbnunQkbjut20COFBOkdhf at bedtimeFebruary 2019 1:00aminsomniaComplies with drug therapyFerrous Sulfate (Ferosul) 325 mg (65 mg iron) hxlpywAittst636FLNQXwlkoTujzktr 2021 12:00amComplies with drug therapyFurosemide 20 mg xaktsuFeevqbjxpoie29CUJJ.every other dayOctohio county hospital 2021 12:00amSeptember 2024 12:53ch34yy 2 tabsTopiramate 50 mg tablet Bpqmcjfaznpm12OGPQHqxjhDskldke 2021 12:00amOctober 2024 10:03am Cephalexin 500 mg ibvbsrcGulrrvajeqgb508DILCXwujt times ruiro4219Uecgodi 2021 12:00amFebruary 2023 10:46amCyanocobalamin (Vitamin B-12) (Vitamin B- 12) 2,000 mcg Tablet Extended KusfiikKanwmbwrwgpj2509UVFKSAqird10Sdrbdnn 2021 4:44pmFebruary 2023 10:46amFurosemide 20 mg akceysHwecve90SGYHWyhgp November 08, 2024 12:09pmComplies with drug therapyClonazepam 0.5 mg Tablet Discontinued0.5MGPOTwice dailyDecember 12, 2018 12:00amSept2024 12:11pmClopidogrel (Plavix) 75 mg GpsgvxShamdmpdsgam09VIOKHltdm 2018 12:00amFebruary 2023 10:46amCVAHydrochlorothiazide 12.5 mg ZhzduhPmasndpukwos66.5MGPOEvery 2018 12:00amFebruary 2020 1:05pmhtnFerrous Sulfate 324 mg (65 mg iron) tablet,delayed release (DR/EC) Rvknlhxhlycn076ORNSIDKEE 2 2018 10:27amJanuary 2020 1:28pmRosuvastatin (Crestor) 10 mg XvpzuvMqgdtexiajgz93IBQDFgenj at bedtime December 12, 2018 12:00amFebruary 2023 10:45amhyperlipidemiaClonazepam 0.5 mg tabletActive0.5MGPOTwice daily as neededNovember 08, 2024 12:06pm Complies with drug therapyCetirizine (All Day Allergy (Cetirizine)) 10 mg Tablet Evgbpqtioikk70TDCXRbgwhKykmcho 7th, 2021 1:00amOctober 2021 11:26amallergy symptomsAspirin 81 mg Tablet,Delayed Release (Dr/Ec)Nmizpmoagbwj05YZRQVeqsc March 23, 2020 1:00amMarch 2023 9:44amCVA preventionCyanocobalamin (Vitamin B-12) (Vitamin B-12) 2,000 mcg Tablet Extended LyjkurbAnacwjxpdheg3590 MCGPODailyFebruary 2020 1:00amOctober 2021 4:44pmAspirin 81 mg tablet,mwvjuijmLraxab30XTGQVvvcaZbkxs 2023 1:00amFreeTextSi tablet Orally Once a day; Note: Source Status: Taking; Provider: Windy Sheikh ( )Complies with drug therapyPotassium Chloride 10 mEq capsule, extended eqcgtasUmuvwqhczftq92HAHVKAnnbjYuavpscq 2023 1:00amSeptember 2024 2:02pmMetoprolol Succinate 25 mg capsule,sprinkle,ER 15lsRqehjfvwqzhr30RQGQGddwa April 09, 2023 1:00amSeptember 2024 12:11pmFreeTextSi capsule Orally Once a day; Note: Source Status: Taking; Provider: Windy Sheikh ( )Amlodipine 2.5 mg tabletActive2.5MGPODailyFebruary 2023 1:00am FreeTextSi tablet Orally Once a day; Note: Source Status: Taking; Provider: Windy Sheikh ( )Complies with drug therapyRosuvastatin 20 mg weupiwTthodz60ZXUIPjscdAmbzhpbq 2023 1:00amFreeTextSi tablet Orally Once a day; Note: Source Status: Taking; Provider: Windy Sheikh ( )Complies with drug therapyTrospium 60 mg capsule,extended release 87fbMhcmalqasqpc22EXQUXyhbtIrdamsuo 2023 1:00amOctober 2024 11:51am must be taken on empty stomach at least 1 hour before a meal/food with water onlyClopidogrel (Plavix) 75 mg iunwxvKkqndiyjlfid81HDVSAcvsn50375Hkmmxqpq 2023 1:00amOctober 2024 10:02amStenosis of carotid artery Occlusion and stenosis of unspecified carotid arteryTrospium 60 mg capsule,extended release 69geBclumo62ODSLSpwubUtrpjfh 2024 11:50ammust be taken on empty stomach at least 1 hour before a meal/food with water only Complies with drug therapyAscorbic Acid (Vitamin C) 500 mg jhvcegIncgrg641WLTL DailySept2024 12:00amComplies with drug therapyCetirizine 10 mg fpygfjYkotxm69XPKAPpquv as neededSept2024 12:00amComplies with drug therapyMethenamine Hippurate 1 gram gvqmqfQsqefs3LRZALrhid dailySept2024 12:00amComplies with drug therapyMetoprolol Succinate 25 mg tablet extended release 24 fsAtozfo23MBVVvgmrvCztbmmxvh 28th, 2025 12:00amComplies with drug therapyEstradiol 0.01 % (0.1 mg/gram) xwvheYoqmvo6BDDAAGPXB6 Times a week November 08, 2024 12:00amComplies with drug therapyD-Mannose (Azo D-Mannose) 500 mg capsuleActiveMGPOSept2024 12:00amComplies with drug therapy Topiramate 50 mg xthintNxecix19UFLHNmtib at bedtimeNovember 26, 2024 10:03am Complies with drug therapySulfamethoxazole-Trimethoprim 800-160 mg tablet Zivtjkmzykws6FXNQUAdqyt aggpj1365Dnxre 2023 12:00amJanuary 2024 11:35amPhenazopyridine (Pyridium) 200 mg uavbqcQcoistfmwgxb029PWMLEbbaf 8 hours6 [facility] 2023 12:00amSeptember 2024 12:10pm Immunizations Immunization Event Date Not Given Reason Dose Number Hotel Services Supervisor Lot Number Reason(s) Given Vaccine Information Statement (VIS) Detail Administration Location COVID-19 Ad26.COV2.S (Footmarks) June 11, 2020 Medical Equipment Device Date Implanted Device Details Orthopaedic fixation plate, non-bioabsorbable, sterile March 31, 2021 ARETHA: ()[id number] Issuing Agency: [facility] Device Id: [id number] bone screw, non-bioabsorbable, non-sterile March 31, 2021UDI: ()[id number] Issuing Agency: [facility] Device Id: [id number] bone screw, non-bioabsorbable, non-sterile March 31, 2021UDI: ()[id number] Issuing Agency: [facility] Device Id: [id number] bone screw, non-bioabsorbable, non-sterile March 31, 2021UDI: ()[id number] Issuing Agency: [facility] Device Id: [id number] bone screw, non-bioabsorbable, non-sterile March 31, 2021UDI: ()[id number] Issuing Agency: [facility] Device Id: [id number] bone screw, non-bioabsorbable, non-sterile March 31, 2021UDI: ()[id number] Issuing Agency: [facility] Device Id: [id number] bone screw, non-bioabsorbable, non-sterile March 31, 2021UDI: ()[id number] Issuing Agency: [facility] Device Id: [id number] bone screw, non-bioabsorbable, non-sterile March 31, 2021UDI: ()[id number] Issuing Agency: [facility] Device Id: [id number]-[id number] carotid artery stentMarch 2023UDI: ()[id number] Issuing Agency: [facility] Device Id: [id number] Expiration Date: 2025-09-10 Lot Number: [id number] patch, animal-derivedFebruary 2020UDI: ()[id number] Issuing Agency: [facility] Device Id: [id number] Expiration Date: 2022-04-15 Lot Number: [id number] Vital Signs Vital Reading Result Reference Range Collection Date/Time Height 61 [in_i] November 26, 2024 9:50enXvxxbh00.56 kgNovohio [facility] hospital 2024 9:08amBody Temperature 98.3 [degF]97.6-99.0November 26, 2024 9:08amHeart Rate80 /rji24-044SayibxoNovember 26, 2024 9:08amRespiratory rate16 /cnp61-26Zoscrfr 16th, 2025 9:08amOxygen saturation by Pulse hvejfvhm47 %95-100Oct2024 9:08amBP Uqyktsrm626 mm[Hg]100-140Oct2024 9:08amBP Wkqkdzalq59 mm[Hg]60-100Oct2024 9:08amBMI (Body Mass Index)29.0 kg/g7Cfngcrh 2024 9:99aaBdhoyj18 [in_i]December 03, 2024 11:70tyLtoadx66.94 [facility] 2024 11:28amHeart Npkp718 /yyp81-124Ulwjfvf 2024 11:28amRespiratory rate18 /tmh69-22Tauffmm 2024 11:28amOxygen saturation by Pulse iakwwgjg56 %95-100[facility] 2024 11:28amBP Kialgihw585 mm[Hg]100-140Oct[facility] 2024 11:28amBP Hexgdhoyt49 mm[Hg]60-100[facility] 2024 11:28amBMI (Body Mass Index)28.7 kg/q1Ekpntvc 2024 11:28am Advance Directives Advance Directive Response Recorded Date/ Time Advance Directives No May 12 4:06pm Insurance Providers Guarantor Ozzie Luna Address [address] [place] [address]Cwwfhre Info.Home Phone: Payer Group Member ID Coverage Type Subscriber Relationship to Subscriber Effective Date Expiration Date Medicare Id: [id number] B Elliott Id: [id number] [address] [place] [address] Home Phone: Email: DECLINED [phone] Encounters Encounter Location(s) Arrival/Admit Date Discharge/Departure Date Discharge/Departure Disposition Provider(s) Registered Recurring -[facility] November 112024 10:15am Aleena Collado NP-CDeparted Physician/Provider [facility] 9:05am[facility] 2024 9:52amDischarged to home care or self care (routine discharge)Aleena Collado NP-CDeparted Physician/Provider Office Visit-[facility] 2024 11:35amOct[facility] hospital 2024 12:34pmDischarged to home care or self care (routine discharge)Jessica Aretha Ceballos , SPRAY STAINER-CASTING MACHINE OPERATOR AUTOMATIC-C Recent Diagnosis Onset Date Admit Date Dizziness and giddiness Unknown November 26, 2024 9:05am Episode of recurrent major depressive disorder U nknown November 26, 2024 9:05am Essential hypertension Unknown November 112024 9:05am CRYSTAL (generalized anxiety disorder) Unknown November 26, 2024 9:05am Migraine with aura and witho ut status migrainosus, not intractable Unknown November 26, 2024 9:05am Ataxia Unknown December 03 11:35am Gait instability Unknown December 03, 2 025 11:35am Ischemic stroke Unknown December 03 11:35am Aphasia Unknown December 03 11:35am Assessments Diagnosis Onset Date Resolution Status Admit Date Dizziness and giddiness acuteOctober 2024 9:05amEpisode of recurrent major depressive disorder acuteOctober 2024 9:05amEssential hypertensionacuteOctober 2024 9:05amGAD (generalized anxiety disorder)acuteOctober 2024 9:05amMigraine with aura and without status migrainosus, not intractableacuteOctober 2024 9:05amAtaxiachronicOctober 2024 11:35amGait instabilitychronicOctober 2024 11:35amIschemic strokechronicOctober 2024 11:35amAphasiadeleted December 03, 2024 11:35am Plan of Treatment Author [facility] Collado [facility] 10:02amPlease check blood pressure daily and record DASH diet Limit caffeine Take medication as directed Contact office if chest pain, pressures, dizziness, shortness of breath, swelling in the legs Recommend slow position changes if you develop dizziness with position changes current meds: amlodipine, b jimmy may be multi factoral, side effects meds, side effect from stroke will try to cut back doses on some meds to see if this helps will start with cut back on topirimate to 50m/2 tablet daily current meds: quetiapine takes topamax, we will try to cut back dose, is not having migraine headaches, could also be contriubting to ataxia klonopin, seroquel Author Jessica [facility] HospitalAuthoredOctober [facility]24 11:59amThe patient has gait instability which she believes has, overall, worsened over the past 1+ year. At the prior neurology appointment, the patient also had dysmetria of the upper and lower extremities on physical exam and truncal ataxia. These are not observed today. The patient is taking clonazepam, topiramate, and Seroquel, all of which could contribute to ataxia. MRI of the brain on 03/01/2023 also identified multifocal remote infarcts which could contribute to ataxia. However, I would not expect these to explain progressive symptoms. MRI did not mention any definitive atrophy of the brainstem. The patient denies history of alcohol abuse or family history of hereditary ataxia. Updated MRI of brain and MRI of the cervical spine on 06/24/2024 identified no cause for progressive ataxia. Possible differential diagnoses include adult onset spinal cerebellar ataxia or a neurodegenerative process such as multiple system atrophy type C. I do not appreciate many parkinsonian features on clinical exam today, but there is mild bradykinesia, and the patient reports an intermittent tremor. Given the significant improvement in symptoms when compared to the prior neurology appointment and patient history, I now believe there may be a functional component to her symptoms. 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 She completed PT/OT with some subjective benefit previously. PLAN: - I reviewed MRI of the brain and MRI of the cervical spine results with the patient and her - Continue at home physical and occupational therapy exercises - Fall prevention measures discussed - As clonazepam, topiramate, and Seroquel can contribute to ataxia, I recommend the patient attempt to reduce use of these medications with the prescribing provider See above. The patient reports memory decline and expressive aphasia with insidious onset. Her MOCA score on 06/01/2024 was 15/30. MRI of brain on 06/24/2024 revealed remote infarcts in the left MCA territory as well as the head of the right caudate nucleus but no acute intracranial abnormality and no definitive new strokes to contribute to her symptoms. Neuropsychological evaluation on 06/30/2024 was suggestive of Primary Progressive Aphasia (PPA), exacerbated by severe depression and anxiety, along with high family stress. Suspicion for underlying untreated DULCE MARIA was also likely contributing. The patient admits her son in 2023, and her family aside from her has stopped talking to her since that time. She had somewhat significant expressive aphasia throughout most of the appointment. However, after discussing neuropsychological evaluation results with her, she did go on to speak for approximately 3 or more minutes with fluent speech and no aphasia or notable speech errors. 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 PLAN: - I educated the patient on functional neurologic disorder. We discussed referral to psychiatry and counseling for this which she was agreeable to. They may consider cognitive behavioral therapy - Will also refer her to speech therapy for evaluation and treatment - Will keep PPA in mind, as this is not completely excluded, but I have higher suspicion for FND currently - Labs (vitamin B12 and TSH) were ordered at the prior neurology appointment. I encouraged the patient to have these completed to evaluate for other possible causes of cognitive impairment - Sleep study was recommended to evaluate for possible sleep-related breathing disorder such as DULCE MARIA but declined by the patient The patient has a history of dizziness. She had a substantial problem in February 2023 and was evaluated at [facility] where she had a CT head, CTA [...] Continue aspirin 81 mg by mouth daily - Continue statin (management per primary care provider; goal LDL < 70) - Healthy diet - Avoid tobacco use and limit alcohol intake - Follow up closely with primary care provider for management of blood pressure, cholesterol levels, and blood glucose to help reduce the risk of future stroke - Follow up with vascular surgery per their recommendations for carotid artery stenosis - I counseled the patient on signs and symptoms of stroke and educated the patient to seek emergent care in the emergency department if she develops any of these in the future. She verbalizes understanding Diagnoses and treatment plan discussed. The patient and her verbalized understanding and are agreeable to the plan. All questions answered. Future Tests Future scheduled test information is unavailable Pending Tests Pending diagnostic test information is unavailable Future Visits Future appointment information is unavailable Future Procedures Procedure Name Ordered Date Scheduled Date Vitamin B12 December 03, 2024 12:31pm FolateOct2024 12:31pmThyroid Stim Hormone w/RflxOct2024 12:31pm Future Medications Future medication information is unavailable Patient Instructions Patient instructions are unavailable
--- OUTSIDE RECORDS SUMMARY | 2024-12-04 07:22 | XMS_ITS | Clinical Summary ---
Author Organization [facility] Address [address] [place] [address] Phone Care Team Providers Care Surtass Analyst Name Role Phone Unavailable Primary Care Provider Unavailabl e Social History Tobacco UseTypesPacks/DayYears UsedDateSmoking Tobacco: Never Assessed CommentsUnknownSex and Gender InformationValueDate RecordedSex Assigned at Not on fileLegal MmvGaleep40/25/2022 9:42 AM ESTGender IdentityNot on fileSexual OrientationNot on file Plan of Treatment Health MaintenanceDue DateLast DoneCommentsLipid Panel1948Yearly Adult Crdshskm20/23/1949Hepatitis C Djzyhdjiv35/23/1967DTaP/Tdap/Td Vaccines (1 - Tdap)1970Pneumococcal Vaccine (1 of 1 - PCV)1998Zoster Vaccines (1 of 2)1998Bone Density Scan2013RSV High Risk: (Elderly (60+) or Population) (1 - 1-dose 75+ series)06/04/2023Influenza Vaccine (#1) 2024OVID-19 Vaccine (1 - 2024- season)2024HIB VaccinesAged OutNo longer eligible based on patient's age to complete this topicHPV VaccinesAged OutNo longer eligible based on patient's age to complete this topicHepatitis A VaccinesAged OutNo longer eligible based on patient's age to complete this topic Hepatitis B VaccinesAged OutNo longer eligible based on patient's age to complete this topicIPV VaccinesAged OutNo longer eligible based on patient's age to complete this topicMeningococcal VaccineAged OutNo longer eligible based on patient's age to complete this topicRotavirus VaccinesAged OutNo longer eligible based on patient's age to complete this topic
--- OUTSIDE RECORDS SUMMARY | 2024-12-04 07:22 | XMS_ITS | Clinical Summary ---
Author Organization [facility] Address [address] [place] [address] Care Team Providers Care Protein Scientist Name Role Phone Aleena Collado MARKETING DATABASE COORDINATOR Unavailable [phone] Obed Walls DO Unavailable [phone] Vish Zazueta DO Unavailable [phone] Ynes Snyder MARKETING DATABASE COORDINATOR Unavailable [phone] Jessica Ceballos NP Unavailable Unavailable Gerry Godwin MD Primary Care Provider [phone] Gerry Godwin MD Unavailable Allergies Active AllergyReactionsCriticalityNoted DateCommentsPenicillin GUnknown 4492BvrgadiyfzrIexxKhc98/09/2008 Medications MedicationSigDispense QuantityRefillsLast FilledStart DateEnd DateStatus furosemide (Lasix) 40 MG tablet Take 20 mg by mouth Daily Pt takes 20mg4Active cetirizine (ZyrTEC) 10 MG tablet Take by mouthActive D-Mannose 500 MG capsule Take 500 mg by mouth Daily Exec UrologyActive Probiotic Product (PROBIOTIC/PREBIOTIC/CRANBERRY PO) Take 60 mg by mouth DailyActive ascorbic acid (Vitamin C) 500 MG tablet Take 500 mg by mouth DailyActive estradiol (Estrace) 0.1 MG/GM vaginal cream apply a pea-sized amount vaginally and around the urethra NIGHTLY TIME 3 (THREE) weeks, then 3 (THREE) times per week hruqovchhl16/19/2025Active methenamine hippurate (Hiprex) 1 g tablet Take 1 g by mouth in the morning and 1 g before bedtime.5Active trospium (Sanctura XR) 60 MG 24 hour capsule Take 60 mg by mouth in the morning.5Active amLODIPine (Norvasc) 2.5 MG tablet Indications:Primary hypertensionTake 1 tablet (2.5 mg) by mouth Daily 90 tablet 5Active metoprolol succinate XL (Toprol-XL) 25 MG 24 hr tablet Indications:Primary hypertensionTake 1 tablet (25 mg) by mouth Daily Do not crush or chew 90 tablet 5Active rosuvastatin (Crestor) 20 MG tablet Indications:Atherosclerosis of coronary artery of [place] heart, unspecified vessel or lesion type, unspecified whether angina present,Stenosis of right carotid artery,Cerebrovascular accident (CVA), unspecified mechanism (HCC)Take 1 tablet (20 mg) by mouth at bedtime 90 tablet 5Active baclofen (Lioresal) 20 MG tablet Indications:Muscle spasmTake 1 tablet (20 mg) by mouth every 8 (eight) hours if needed for muscle spasms 90 tablet 5Active QUEtiapine (SEROquel) 50 MG tablet Indications:Psychophysiological insomniaTake 1 tablet (50 mg) by mouth at bedtime 90 tablet 6Active doxycycline (Vibramycin) 100 MG capsule Take 100 mg by mouth in the morning and 100 mg before bedtime.5Active potassium chloride ER (Micro-K) 10 MEQ ER capsule Take 10 mEq by mouth Daily5Active topiramate 50 MG tablet Indications:Migraine with aura and without status migrainosus, not intractable Take 50 mg by mouth at bedtime 90 tablet 5Active clonazePAM (KlonoPIN) 0.5 MG tablet Indications:Anxiety and depressionTake 1 tablet (0.5 mg) by mouth in the morning and 1 tablet (0.5 mg) before bedtime. 60 tablet 5Active aspirin (Aspirin Low Dose) 81 MG chewable tablet Indications:Peripheral vascular disease, unspecified,Atherosclerosis of coronary artery of [facility] heart, unspecified vessel or lesion type, unspecified whether angina present,Stenosis of carotid artery, unspecified lateralityChew 1 tablet (81 mg) Daily 90 tablet 307/07/262678/05/2025Expired Active Problems ProblemNoted DateDiagnosed DateEpisode of recurrent major depressive disorder 08/11/2024Recurrent UTI02/26/2024Heart failure, kasttjynpkj34/10/2024 Assessment & Plan (01/21/2024 11:51 AM EST): Current meds: lasix, bblocker, crestor and amlodipine Does follow with [facility] cardiology Does have LE edema noted as well today, no dyspnea Peripheral vascular disease, ttscnvtsutv89/10/2024 Assessment & Plan (01/21/2024 6:37 AM EST): On statin, asa CRYSTAL (generalized anxiety disorder)01/21/2024 Overview (01/21/2024): Med agreement signed: 01/21/24 Assessment & Plan (08/11/2024 7:41 AM EDT): Has been on klonopin for some time OARRS reviewed Assessment & Plan (05/12/2024 7:05 AM EDT): Has been on klonopin for some time OARRS reviewed Assessment & Plan (01/21/2024 6:45 AM EST): Has been on klonopin for some time OARRS reviewed Muscle spasm01/21/2024 Assessment & Plan (01/21/2024 6:46 AM EST): Takes baclofen Iron zwvlhdyuhd07/10/2024 Assessment & Plan (01/21/2024 10:42 AM EST): Labs stable, cont current meds Psychophysiological afasgkvd60/10/2024 Assessment & Plan (08/11/2024 5:55 PM EDT): At this point I will reach out to neurology for help with this Letter to follow Chronic UTI01/21/2024 Assessment & Plan (01/23/2024 11:37 AM EST): [...] bactrim by [facility] 02/20/23 ecoli White matter mrgylkw6809/11/2023Incontinence without sensory zdjkvctom43/31/2024 Oropharyngeal ksqhtunox13/10/2024 Assessment & Plan (10/22/2023 11:19 AM EDT): [...] go by herself for speech therapy. She haspoor gait/balance. Prior stroke has affected her cognition [...] drinking thin liquid Medicare annual wellness visit, qfhilimgnf09/22/2024 Assessment & Plan (2023 7:16 PM EDT): Patient here for Medicare Wellness. Reviewed medical, surgical and social history. Reviewed medication list. Patient screened for depression, fall risk, cognitive impairment. Patient provided appropriate education on chronic medical conditions, prescription medications. Patient's health related questions and concerns addressed and answered. Colonoscopy 2021- no need for repeat. Encounter for screening mammogram for breast zgodnr7006/03/2023izziness and rpaoddups81/03/2024 Assessment & Plan (05/12/2024 7:04 AM EDT): [...] are thinking her symptoms from peripheral vertigo. Noimprovement with meclizine. Seen by Neurology. 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 Assessment & Plan (2023 7:08 PM EDT): Dizziness and giddiness. Unstable gait. Patients reports also reports vertigo. Her symptoms startedlast January. She has had an MRI brain on two occasions - no evidence of Stroke. She has mild dysarthria and diplopia from prior CVA. She is on ASA, Plavix and statin for secondary stroke px. Patient was seen by Vascular neurology - they are thinking her symptoms from peripheral vertigo. Noimprovement with meclizine. She was referred to Dr [...] Patients reports also reports vertigo. Her symptoms startedlast January. She has had an MRI brain [...] him in June. Peripheral vertigo involving left ear05/15/2023 Assessment & Plan (05/15/2023 5:29 PM EDT): Persistent, accompanied with poor balance, dizziness and unstable gait. No evidence of stroke on MRI. No new neurological symptoms. No tinnitus, hearing difficulty. Prior hx of CVA. Patient seen by vascular surgery. Symptoms started in jan, progressively worsening. Trial of meclizine, ordered vestibular rehab Impaired mobility and activities of daily gkpick0603/14/2023 Assessment & Plan (05/12/2024 7:05 AM EDT): Continue with home health Assessment & Plan (02/27/2024 4:19 PM EST): Was getting HH, would benefit from continued services Qhcsobkonm69/10/2024History of cerebrovascular accident (CVA) with residual osmalqj7502/20/2023 Assessment & Plan (02/27/2024 4:19 PM EST): Would benefit from continued home health services, she relies heavily on her to help with her ADL's Other vjjykgdeqzbdfo07/10/2024rimary fgesotfbaywf07/10/2024 Assessment & Plan (08/11/2024 7:41 AM EDT): [...] goal. Monitor closely. Migraine with aura and without status migrainosus, not npxjsvdrzay49/10/2024 Assessment & Plan (01/21/2024 6:46 AM EST): [...] or poorly controlled migraines. Overflow incontinence of urine02/20/2023 Assessment & Plan (08/11/2024 5:54 PM EDT): Continue with urology Assessment & Plan (05/12/2024 7:05 AM EDT): Continue with urology Assessment & Plan (01/21/2024 11:52 AM EST): Will reach out to Urology office to get an appt with them Assessment & Plan (02/20/2023 12:13 PM EST): Patient reports for over past 6 months, she has been experiencing urinary incontinence. She usuallyleaks large amount of urine. Happens on a daily basis and as a result she is always wearing adult diapers. Patient reports that most of the time, she does not feel the urge to urinate. She has had frequent UTI in past one year and currently, experiencing dysuria. She also adds that dysuria has beenmore or less persistent for 6 months. She denies pelvic injury, had 2 children via NVD. Denies any signs and symptoms concerning for prolapse. Will check UA, urine culture. Will also refer to Urology. Mixed exndndbdythkhm64/09/2022 Overview (02/20/2023): Last Assessment & Plan: Lipid abnormalities are well controlled, continue crestor Coronary ffyxffqkjapylcy60/10/2021 Overview (02/20/2023): Images from the original note [...] EDT): Crestor, toprol and ASA Carotid artery aqkzerrq79/13/2021 Overview (05/15/2023): Images from the original note [...] On ASA, PLAVIX and statin. Cerebrovascular accident (CVA)04/05/2018 Overview (02/20/2023): Last Assessment & Plan: F/U [...] EDT): Would like a more local neurologist Yiirlqvbrhzedv44/27/2008 Resolved Problems ProblemNoted DateDiagnosed DateResolved DateAcute diffuse otitis externa of both ears/02/2024 Assessment & Plan (2024 12:41 PM EDT): No evidence of TM perforation Will prescribe atb drops, for 10 days, if not better fu in office UTI peieygbq85/02/2024 Overview (01/21/2024): [employer] [id number] LOT #[id number] EXP DATE: 02/11/2024 Assessment & Plan (01/21/2024 11:53 AM EST): Treat with macrobid, send for [facility] trax culture Acute cystitis without mruwjlunm40 Overview (10/30/2023): 10/30/23 klebsiella, tx w bactrim Urinary tract infection sziffpsk62 Assessment & Plan (2023 7:21 PM EDT): Patient reports urinary symptoms - x 1 week. Has dysuria, foul smelling urine UA in office c/w UTI Will call in oral bactrim for the patient. Hospital discharge follow-up Assessment & Plan (03/06/2023 1:40 PM EST): [...] controlled. No changes needed. Recurrent major depressive disorder, in full exhdiuipe93/02/2024 Assessment & Plan (01/21/2024 6:39 AM EST): Takes klonopin prn, topirmate, seroquel as well URTI (acute upper respiratory infection)/11/2023 Assessment & Plan (03/06/2023 1:42 PM EST): [...] cough, Azithromycin for antibacterial coverage. PCN allergic. Iiehsnuoeoym39 Overview (02/20/2023): Last Assessment & Plan: Hypertension is elevated, currently will increase lasix to daily and increase potassium, Repeat BMPin 1 week Continue norvasc 2.5 mg Renal function normal Encounters DateTypeDepartmentCare VimyCkzghrdekav81/20/2025bstract [facility] [address] [place] [address] Aleena Collado NP 09/29/2024Refill [facility] [address] [place] [phone] Aleena Collado NP Anxiety and neisycxene79/19/2025Refill [facility] [address] [place] [phone] Aleena Collado NP Migraine with aura and without status migrainosus, not aqdbinjekyb11/18/2025 Refill [facility] [address] [place] [phone] Aleena Collado, SANDRA 09/28/2024[facility] [address] [place] [address] Milton Piña MA 09/22/2024Refill [facility] [address] [place] [phone] Aleena Collado, SANDRA Psychophysiological lvbpbqyp39/12/2025[facility] [address] [place] [phone] Milton Piña MA from Last 3 Months Immunizations ImmunizationAdministration DatesNext JchLLI99Influenza, High Dose Seasonal, Preservative Free12/22/2018Influenza, High-dose Seasonal, Quadrivalent, Preservative Free12/09/2019Influenza, Seasonal, Quadrivalent, Ezrqspavrc05/14/2023,01/20/2022,11/26/2020Influenza, Mrxlseklmec39/28/2024, 11/24/2022,01/20/2022,11/26/2020,12/09/2019,12/22/2018,03/25/2001Influenza, seasonal, gqkicoawue87/12/2002Influenza, trivalent, ycqesrjpjt61/28/2024Novel cdwpbqcqi-R6J2-85, preservative-free02/17/2009Pneumococcal Conjugate PCV 20 11/24/2022RSV, recombinant, protein subunit RSVpreF, adjuvant reconstitu, 120mcg/0.5mL, PF (Arexvy)11/24/2022Td (adult)03/25/2001Td (adult), unspecified 03/25/2001 Family History Medical HistoryRelationNameCommentsCancerFatherDiabetesFatherHeart diseaseFather CancerMotherHypertensionMotherRelationNameStatusCommentsFatherDeceasedMother Social History Tobacco UseTypesPacks/DayYears UsedDateSmoking Tobacco: FormerCigarettesPassive Smoke Exposure: CurrentSmokeless Tobacco: Never Tobacco Cessation:Counseling Given: No Alcohol UseStandard Drinks/WeekCommentsNever0 (1 standard drink = 0.6 oz pure alcohol)B1300 Health LiteracyAnswerDate RecordedHow often do you need to have someone help you when you read instructions, pamphlets, or other written material from your doctor or pharmacy?Toqhdppvy00/16/2024Humiliation, Afraid, Rape, and Kick questionnaireAnswerDate RecordedWithin the last year, have you been afraid of your partner or ex-partner?No01/27/2024Within the last year, have you been humiliated or emotionally abused in other ways by your partner or ex-partner?No01/27/2024Within the last year, have you been kicked, hit, slapped, or otherwise physically hurt by your partner or ex-partner?No01/27/2024Within the last year, have you been raped or forced to have any kind of sexual activity by your partner or ex-partner?No01/27/2024Social Connection and Isolation Panel AnswerDate RecordedIn a typical week, how many times do you talk on the phone with family, friends, or neighbors?Once a week01/27/2024How often do you get together with friends or relatives?Once a week01/27/2024How often do you attend sabianism or moravian services?Never01/27/2024o you belong to any clubs or organizations such as sabianism groups, unions, fraternal or athletic groups, or school groups?No01/27/2024How often do you attend meetings of the clubs or organizations you belong to?Never01/27/2024re you , , , , never , or living with a partner?Yxnjcce3801/27/2024UDIT-C AnswerDate RecordedQ1: How often do you have a drink containing alcohol?Never 01/27/2024Q2: How many drinks containing alcohol do you have on a typical day when you are drinking?Patient does not drink01/27/2024Q3: How often do you have six or more drinks on one occasion?Never01/27/2024Overall Financial Resource Strain (CARDIA)AnswerDate RecordedHow hard is it for you to pay for the very basics like food, housing, medical care, and heating?Not hard at all01/27/2024 PHQ-2AnswerDate RecordedPatient Health Questionnaire-2 Pidsa629Finameric[facility] [place] of Occupational Health - Occupational Stress QuestionnaireAnswerDate RecordedDo you feel stress - tense, restless, nervous, or anxious, or unable to sleep at night because yourmind is troubled all the time - these days?Not at all 01/27/2024Exercise Vital SignAnswerDate RecordedOn average, how many days per week do you engage in moderate to strenuous exercise (like a brisk walk)?0 days 01/27/2024On average, how many minutes do you engage in exercise at this level?0 min01/27/2024Hunger Vital SignAnswerDate RecordedWithin the past 12 months, you worried that your food would run out before you got the money to buymore.Never true01/27/2024Within the past 12 months, the food you bought just didn't last and you didn't have money to get more.Never true01/27/2024RAPARE - TransportationAnswerDate RecordedIn the past 12 months, has lack of transportation kept you from medical appointments or from getting medications?No 01/27/2024In the past 12 months, has lack of transportation kept you from meetings, work, or from getting things needed for daily living?No01/27/2024 Housing Stability Vital SignAnswerDate RecordedIn the last 12 months, was there a time when you were not able to pay the mortgage or rent on time?No01/27/2024In the past 12 months, how many times have you moved where you were living?0 01/27/2024t any time in the past 12 months, were you homeless or living in a jail (including now)?No01/27/2024CommentsUnknownSex and Gender InformationValueDate RecordedSex Assigned at BirthNot on fileLegal SexFemale 04/25/2022 6:38 PM EDTGender IdentityNot on fileSexual OrientationNot on file Last Filed Vital Signs Vital SignReadingTime TakenCommentsBlood Xydntvbx920/6607 9:10 AM EDT Dbswy953808/11/2024 9:10 AM NOOUwfrgfmktrs93.6 ??C (97.8 ??F)08/11/2024 9:10 AM EDTRespiratory Juhf482508/11/2024 9:10 AM EDTOxygen Izgcdbzmcb78%08/11/2024 9:10 AM EDTInhaled Oxygen Concentration--Ynjcww71 kg (158 lb 12.8 oz)08/11/2024 9:10 AM ORSTohpgj137.9 cm (5' 1 )01/21/2024 9:55 AM ESTBody Mass Kbhhp5455/10/2024 9:55 AM EST Plan of Treatment Health MaintenanceDue DateLast DoneCommentsInfluenza Vaccine (#1)10/12/2024 11/09/2023, 11/09/2023, 11/24/2022, Additional history existsColonoscopy Ilozodmygozz99/01/2022, 2Colorectal Cancer ScreeningDiscontinued Pneumococcal Vaccine: 65+ DgfqeNygxbgudh34/14/2023CT ColonographyDiscontinued FIT-DNADiscontinuedFITDiscontinuedFOBTDiscontinuedSigmoidoscopyDiscontinued Insurance Care Teams Team MemberRelationshipSpecialtyStart DateEnd Date Gerry Godwin MD [address] [place] [phone] PCP - GeneralFamily Nxnbhlqm04/31/24 Gerry Godwin MD [address] [place] [address] PCP - [place]04/11/24 Aleena Collado NP Nurse PractitionerFamily Medicine10/03/23 Obed Walls DO [address] [facility] [place] [address] Whlarrnelpafkz28/21/24 Vish Zazueta DO [address] [place] [address] Referring RgrvnrlshPtbkizvya57/28/24 Ynes Snyder NP [address] [place] [address] Nurse ChxfxeoauldpQkgfrgzrj46/28/24 Jessica Ceballos NP [address] [address] Nurse SzzqxtgwemhiXiwmrnjjz83/28/24
--- OUTSIDE RECORDS SUMMARY | 2024-12-04 07:22 | XMS_ITS | Clinical Summary ---
Author Organization [facility] Address [facility] [place] [address] Care Team Providers Care Dining Manager Name Role Phone Aneesh Ramirez MD Primary Care Provid er Allergies Active AllergyReactionsCriticalityNoted IappQimtqpmxWeezbuunrsiJrnb49/09/2008 Medications MedicationSigDispense QuantityRefillsLast FilledStart DateEnd DateStatus hydrochlorothiazide 25 mg tablet Take 1 tablet by mouth once daily.ctive furosemide (LASIX) 20 mg tablet Take 3 tablets by mouth twice daily.ctive amitriptyline 25 mg tablet Take 1 tablet by mouth daily at bedtime.ctive traMADOL 50 mg tablet Take 1 tablet by mouth twice daily.ctive oxyCODONE-acetaminophen (PERCOCET) 10-325 mg tablet Take 1 tablet by mouth every 6 hours as needed (for pain.).ctive Active Problems ProblemNoted DateDiagnosed ZqnbVovebtzrloxo67/12/2010Reflex sympathetic dystrophy of the lower limb04/09/2007Knee joint replacement by other means 04/09/2007Osteoarthrosis, unspecified whether generalized or localized, lower leg04/09/2007Contusion of knee04/09/2007Tear of medial cartilage or meniscus of knee, zlcevre8804/09/2007 Family History Medical HistoryRelationCommentsIschemic Heart DiseaseBrotherMigraine [Other] DaughterCancerFatherBoneIschemic Heart DiseaseFatherbrain tumor [Other]Maternal GrandmotherCancerMotherBreast with metastases to brain?SeizuresOthergrandson and granddaughter with seizuresRelationStatusCommentsBrotherDaughterFatherMaternal GrandmotherMotherOther Social History Tobacco UseTypesPacks/DayYears UsedDateSmoking Tobacco: FormerCigarettes 02/11/1979 - 02/11/1989 Comments:SMOKED 1/2 TO 3/4 P ACK OF CIGARETTES DAILY Alcohol UseStandard Drinks/WeekCommentsNo0 (1 standard drink = 0.6 oz pure alcohol)CommentsNoSex and Gender InformationValueDate RecordedSex Assigned at BirthNot on fileLegal VxbCscuqw39/02/2012 9:33 AM ESTGender Identity Not on fileSexual OrientationNot on file Last Filed Vital Signs Vital SignReadingTime TakenCommentsBlood Ytdhyoeh215/60008/10/2011 8:10 AM EDT Jipqv76315/29/2012 8:10 AM ULLCplzconrmer83.1 ??C (98.7 ??F)07/01/2009 7:00 AM EDTRespiratory Bilt459607/01/2009 7:00 AM EDTOxygen Hzvpjfcdhr14%07/01/2009 7:00 AM EDTInhaled Oxygen Concentration--Zdiesj69.2 kg (212 lb)08/10/2011 8:10 AM EDT Xrghqh388.9 cm (5' 1 )08/10/2011 8:10 AM EDTBody Mass Index40.0608/10/2011 8:10 AM EDT Plan of Treatment Health MaintenanceDue DateLast DoneCommentsAnxiety Lphipljfy68/23/1967Depression Joxqgrclg63/23/1967Hepatitis C Aajyqkuen63/23/1967DTaP,Tdap,Td Vaccine (1 - Tdap)06/04/1967Pneumococcal Vaccine: 50+ (1 of 1 - PCV)1998Shingrix Vaccine (1 of 2)1998Diabetes Djrpognno59/19/, 06/29/2009, 06/22/2009one Density Ydgezpbbb07/23/2014RSV Vaccine (1 - 1-dose 75+ series) 4Advance Directive Bcikgpyvus38/01/2025Covid-19 Vaccine ( season)2024Influenza Vaccine (#1)2024 Medical Devices ImplantedTypeAreaManufacturerDevice IdentifierShelf Expiration DateModel / Serial / LotCement Bone Simplex P W/ Tobramycin 1gm - [id number] Implanted:Qty: 5 on 06/28/2009 at [facility] / PuttyHOWMEDICA 01/10/[id number] / / [id number] Restrictor Revision [place] - [id number] Implanted:Qty: 1 on 06/28/2009 at [facility] / [facility] [id number] / / Femur Post Aug Traith 5mm Sz 3 - [id number] Implanted:Qty: 1 on 06/28/[address] [facility] JQCDOUETSJH80/28/[id number] / [id number] / XSNRRestrictor Cement W/Insertor - [id number] [id number] / Insert Tri Tib Ps X3 Sz3 11mm - [id number] Implanted:Qty: 1 on 06/28/2009 at [facility]: Bone - Knee [facility] HJJLORVMNUM16/24/[id number] / / MJAJJAInsert Tri Tib Ps X3 Sz3 13mm - [id number] Implanted:Qty: 1 on 06/28/2009 at [facility]: Bone - Knee [facility] GGQBYMAUVIL69/01/[id number] / / [id number] Femur Comp Rt Sz 3 - [id number] Implanted:Qty: 1 on 06/28/[address] [facility] AHPJONQIFEP43/28/[id number] / [id number] / XTIXStem Triath Cemented 15x50 - [id number] Implanted:Qty: 1 on 06/28/[address] [facility] OVZVRMFITTD32/15/[id number] / [id number] / F9O23JKjiz Triathlon Cement 76g47jm - [id number] Implanted:Qty: 1 on 06/28/[address] [facility] WSPRKYYTXUI78/28/[id number] / [id number] / [id number] Post Aug Traith 5mm Sz 3 - [id number] Implanted:Qty: 1 on 06/28/[address] [facility] CQKZSBYKGGL30/28/[id number] / [id number] / XTAYFemur Distal Aug Rt 15mm Sz 4 - [id number] Implanted:Qty: 1 on 06/28/[address] [facility] BXHJJAXSOFZ58/03/[id number] / [id number] / WPOCFemur Distal Aug Rt 15mm Sz 4 - [id number] Implanted:Qty: 1 on 06/28/[address] [facility] ONKOVBATBZD97/26/[id number] / [id number] / XWDFBaseplate Triathlon Ts Sz3 - [id number] Implanted:Qty: 1 on 06/28/2009 at [facility]THOPEDICS 04/17/[id number] / [id number] / ARYG Procedures Procedure NamePriorityDate/TimeAssociated DiagnosisCommentsBASIC METABOLIC PANEL Irbrgdu0506/29/2009 12:47 AM EDT from Last 3 Months or Most Recently Relevant to Health Maintenance Results * (ABNORMAL) BASIC METABOLIC PNL (06/29/2009 12:47 AM EDT)ComponentValueRef RangeTest MethodAnalysis TimePerformed AtPathologist YakmpxizxPvjdoiu508(H)65 - 100 mg/dLBARBERTON CITIZENS [facility] MAIN ETDAYTJKZWUIK619 - 25 mg/dLHOLZER [facility] LABORATORYCreatinine0.53(L)0.70 - 1.40 mg/dLBARBERTON CITIZENS [facility]PITAL MAIN WYMSJAEKOTTcxfmm786644 - 148 mmol/LCOHIOHEALTH [facility] MAIN LABORATORYPotassium 4.03.5 - 5.0 mmol/LCOHIOHEALTH [facility] MAIN NUXMQUTORQMsizibny42589 - 110 mmol/L [facility] RAIQGADANULD516(L)23 - 32 mmol/LCOHIOHEALTH MARION [facility] MAIN LABORATORYAnion Lis321 - 15 mmol/LCOHIOHEALTH [facility] MAIN LABORATORYCalcium7.6 (L)8.5 - 10.5 mg/dLHOLZER MED[facility] LABORATORYSpecimen (Source)Anatomical Location / LateralityCollection Method / VolumeCollection TimeReceived Time Blood specimen (specimen)BLOOD SPECIMEN / Forshae7306/29/2009 12:47 AM EDT Narrative Authorizing ProviderResult TypeResult StatusJimy Wan MDLABORATORYFinal ResultPerforming OrganizationAddressCity/State/ZIP CodePhone Number [facility] [address] [place] [address] from Last 3 Months or Most Recently Relevant to Health Maintenance Care Teams Team MemberRelationshipSpecialtyStart DateEnd Date Aneesh Ramirez MD [address] [id number] PCP - General07/24/07
--- OUTSIDE RECORDS SUMMARY | 2024-12-04 07:22 | XMS_ITS | Clinical Summary ---
Author Organization [facility] Address [address] [facility] [place] [address] Care Team Providers Care Drier Transfer Car Operator Name Role Phone Steve Junior MD Unavailable [phone] Source Comments The following information is NOT included in Care Everywhere downloads:Psychiatric notes, ECG results, Cardiac Rehab notes, Pulmonary Function notes, data from SmartForms (includes but not limited toPregnancy data,audiograms, eye exams, pre-surgical evaluation notes, well-child exam data).[facility] Active Problems ProblemNoted DateDiagnosed Date([facility]) RT CONTUSION OF KNEE07/06/2010([facility]) RT TEAR OF MEDIAL CARTILAGE OR MENISCUS OF KNEE, KGJXRKP5107/06/2010([facility]) RT OSTEOARTH NOS-L/LEG07/06/2010 Social History Tobacco UseTypesPacks/DayYears UsedDateSmoking Tobacco: Never Assessed CommentsUnknownSex and Gender InformationValueDate RecordedSex Assigned at Not on fileLegal LidGizgdt38/04/2012 8:27 AM ESTGender IdentityNot on fileSexual OrientationNot on file Plan of Treatment Health MaintenanceDue DateLast DoneCommentsHepatitis C Ucdihsgb10/23/1967Tdap Aodhobz1506/03/1966Hepatitis A (HAV) Vaccine (optional start 19+ years)06/04/1967 Tetanus (Td or Tdap) Vofqrci5706/04/1967Pneumococcal Vaccine(s) (50+ yrs) (1 of 1 - PCV)1998Shingles (RZV) Vaccine (1 of 2)1998Hepatitis B (HBV) Vaccine (optional start 60+ years)2008one Qftgfpvfivor88/23/2014RSV vaccine (adult) (1 - 1-dose 75+ series)4COVID-19 Vaccine (2024-26 season)2024Influenza Vaccine (#1)2024Pap SmearDiscontinued Insurance Care Teams Team MemberRelationshipSpecialtyStart DateEnd Date Steve Junior MD [address] [phone] 05/10/10
--- OUTSIDE RECORDS SUMMARY | 2024-12-04 07:22 | XMS_ITS | Clinical Summary ---
Author Organization [facility] Address [address] [place] [place] [address] Care Team Providers Care Valve Liner Rubber Name Role Phone Aleena Collado MD Primary Care Provider [phone] Allergies Active AllergyReactionsCriticalityNoted YkvuLjugpqidBavybharelgMkcvJgw76/09/2008 Medications MedicationSigDispense QuantityRefillsLast FilledStart DateEnd DateStatus aspirin 81 mg EC tablet in the morning.Active baclofen (Lioresal) 20 mg tablet baclofen 20 mg tabletActive clonazePAM (KlonoPIN) 0.5 mg tablet clonazepam 0.5 mg tabletActive metoprolol succinate XL (Toprol-XL) 25 mg 24 hr tablet Take 25 mg by mouth once daily as directed.Active QUEtiapine (SEROquel) 50 mg tablet quetiapine 50 mg tabletActive gabapentin (Neurontin) 100 mg capsule gabapentin 100 mg capsuleActive ferrous sulfate 325 (65 Fe) MG tablet Take 65 mg by mouth with breakfast.Active traZODone (Desyrel) 100 mg tablet Take 150 mg by mouth.Active albuterol (ProAir HFA) 90 mcg/actuation inhaler Active dexAMETHasone (Decadron) 6 mg tablet Active lisinopriL-hydrochlorothiazide 10-12.5 mg tablet Take 1 tablet every day by oral route for 90 days.Active topiramate 50 mg tablet Active furosemide (Lasix) 40 mg tablet Indications:Cerebrovascular accident (CVA), unspecified mechanism (CMS/HCC), Atherosclerosis of [place] coronary artery of [place] heart without angina pectoris,Primary hypertension,SARAVIA (dyspnea on exertion),Bilateral leg edema, Mixed hyperlipidemiaTake 1 tablet (40 mg) by mouth in the morning. 30 tablet 4Active Additional Information Patient taking differently: 10 mgoral Daily, Reported on 09/11/2023 amLODIPine (Norvasc) 2.5 mg tablet Indications:Primary hypertensionTake 1 tablet (2.5 mg) by mouth once daily as directed. 90 tablet ctive rosuvastatin (Crestor) 20 mg tablet Indications:Coronary artery disease involving [place] coronary artery of [place] heart without angina pectoris,Carotid artery stenosis, asymptomatic, bilateral Take 1 tablet (20 mg) by mouth at bedtime. 90 tablet ctive ubrogepant (Ubrelvy) 100 mg tablet Take 100 mg by mouth once daily as directed.Active furosemide (Lasix) 20 mg tablet Indications:Edema, unspecified typeTake 1 tablet (20 mg) by mouth in the morning. 90 tablet ctive Active Problems ProblemNoted DateDiagnosed DateAcute diffuse otitis externa of both ears 2024Infection due to extended spectrum beta lactamase (ESBL) producing xakdcqhv54/25/2025 Overview (07/22/2024): ESBL E coli urine CRYSTAL (generalized anxiety disorder)01/21/2024 Overview (07/22/2024): Med agreement signed: 01/21/24 Heart failure, layhalwoyds58/10/2024Iron dolkhligfx57/10/2024Muscle spasm 01/21/2024sychophysiological wtaumugm87/10/0473Rcdsjbp16/31/2024Incontinence without sensory pipfbuyvh62/31/2024Internal carotid artery stent present 09/11/2023UTI (urinary tract infection)09/11/2023White matter cfmwswb5509/11/2023 Urinary tract infection wytshevb77/22/2024 Overview (09/11/2023): Last Assessment & Plan: Patient reports urinary symptoms - x 1 week. Has dysuria, foul smelling urine UA in office c/w UTI Will call in oral bactrim for the patient. Peripheral vertigo involving left ear05/15/2023 Overview (09/11/2023): Last Assessment & Plan: Persistent, accompanied with poor balance, dizziness and unstable gait. No evidence of stroke on MRI. No new neurological symptoms. No tinnitus, hearing difficulty. Prior hx of CVA. Patient seen by vascular surgery. Symptoms started in jan, progressively worsening. Trial of meclizine, ordered vestibular rehab Dizziness and yrsiembcl81/08/2024 Overview (09/11/2023): Last Assessment & Plan: Dizziness [...] likely functional gait disorder. JASEN (acute kidney injury)MS (altered mental status) nemiaphasia due to acute stroke onfusionysphagia Znbfazie68H/O traumatic brain Fdxxctor95Impaired mobility and activities of daily living Encounter for prophylactic measures, unfuzrxqjax16/01/2024 03/14/2023Hospital discharge follow-up Overview (03/14/2023): Last Assessment & Plan: Patient [...] controlled. No changes needed. SARAVIA (dyspnea on exertion)02/26/2023 Assessment & Plan (02/26/2023 2:17 PM EST): SARAVIA and leg edema- recommended to increase lasix to 40 mg daily for diuresis and repeat BMP next week Bivchvxezk39History of cerebrovascular accident (CVA) with residual yxuvkhw13Migraine with aura and without status migrainosus, not apnlpvuaqqv61Overflow incontinence of urine Overview (03/14/2023): Last Assessment & Plan: Patient [...] Urology. Recurrent major depressive disorder, in full tjamgoreu34URTI (acute upper respiratory infection) Overview (03/14/2023): Last Assessment & Plan: Patient had reported symptoms of cough in the morning and had asked for testing. Respiratory panel is negative for any influenza, COVID. Symptoms resolved. Denies cough, SOB, nasal, chest congestion. Icwgamfuiom15/23/2023 Overview (03/05/2022): Images from the original note were not included. Discharge summary- 11/2021 Assessment & Plan (03/05/2022 11:43 AM EST): Heart rate stable- 69 bpm Currently remains on toprol 25 mg daily. Denied lightheadedness/dizziness or syncope Bilateral lower extremity edema03/05/2022 Overview (03/05/2022): Images from the original note were not included. Assessment & Plan (03/14/2023 2:21 PM EST): Continue lasix 20 mg daily and edema is improved Assessment & Plan (03/05/2022 11:05 AM EST): Evaluated by Vein specialist- Dr Wlash, Dr Juarez- vascular surgery Recommended lymphedema clinic. Atypical iminvt1603/05/2022 Assessment & Plan (03/05/2022 11:40 AM EST): Will start imdur 30 mg daily, d/w pt about headache as side effect and this should resolve after some time of taking imdur- if H/a does not resolve then we will stop medication. D/w pt that this may lower her b/p and to call office for any concerns. Mixed yzajztixogwzbk94/09/2022 Assessment & Plan (02/13/2023 3:15 PM EST): Lipid abnormalities are well controlled, continue crestor Assessment & Plan (03/05/2022 11:42 AM EST): continue crestor 10 mg Assessment & Plan (01/19/2022 9:55 AM EST): Continue crestor 01/18/22 Chol 125, HDL 69, Trig 80. LDL 40 Coronary ahsuwjmwxtbumhu60/10/2021 Overview (03/05/2022): Images from the original note [...] GDMT- ASA, toprol and crestor Carotid artery kgomoqpu22/13/2021 Overview (03/05/2022): Images from the original note were not included. Assessment & Plan (03/05/2022 11:41 AM EST): F/U with vascular surgery for monitoring Assessment & Plan (01/19/2022 9:56 AM EST): Continue crestor F/U with vascular surgery Cerebrovascular kbgstyab54/13/2021 Assessment & Plan (02/13/2023 3:13 PM EST): F/U with neuro Status post placement of implantable loop bvpyunjs27/26/2019 Overview (01/18/2022): Medtronic Loop Vahknpdivfpz61/12/2010 Assessment & Plan (03/14/2023 2:25 PM EST): [...] is uncontrolled 154/83 Continue toprol Contusion of knee04/09/2007Knee joint replacement by other means04/09/2007 Osteoarthrosis, unspecified whether generalized or localized, lower leg 04/09/2007Reflex sympathetic dystrophy of lower limb04/09/2007Tear of medial cartilage or meniscus of knee, zqzjbhu4804/09/2007 Encounters DateTypeDepartmentCare QgaqAbmuhiwjkoi73/24/2025Telephone [facility] [place] [address] [place] [address] Mary Harrison MA from Last 3 Months Immunizations ImmunizationAdministration DatesNext DndZEG16Influenza, High Dose Seasonal, Preservative Free12/22/2018Influenza, High-dose Seasonal, Quadrivalent, Preservative Free12/09/2019Influenza, Seasonal, Quadrivalent, Ftcugcdzhz77/10/2022,11/26/2020Janssen Sars-Cov-2 Stqgtcoarqt27/01/2021Novel gxypkrvic-E5J0-65, preservative-free02/17/2009 Family History Medical HistoryRelationNameCommentsHeart attackBrotherHypertensionFather HypertensionMotherRelationNameStatusCommentsBrotherFatherDeceasedMotherDeceased Social History Tobacco UseTypesPacks/DayYears UsedDateSmoking Tobacco: NeverSmokeless Tobacco: Never Tobacco Cessation:Counseling Given: Not Answered Alcohol UseStandard Drinks/WeekCommentsYes0 (1 standard drink = 0.6 oz pure alcohol)occasionalUT Safety & EnvironmentAnswerDate RecordedFear of Current or Ex-PartnerNot on file04/04/2023Emotionally AbusedNot on file04/04/2023hysically AbusedNot on file04/04/2023Sexually AbusedNot on file04/04/2023hysically or Sexually AbusedNot on file04/04/2023CommentsUnknownSex and Gender InformationValueDate RecordedSex Assigned at BirthNot on fileLegal SexFemale 08/10/2021 12:33 AM EDTGender IdentityNot on fileSexual OrientationNot on file Last Filed Vital Signs Vital SignReadingTime TakenCommentsBlood Iegihkmg267/6206 10:59 AM EDT Hxfvp125707/22/2024 10:59 AM EDTTemperature--Respiratory Rate--Oxygen Saturation 99%07/22/2024 10:59 AM EDTInhaled Oxygen Concentration--Jupeth61.9 kg (154 lb) 07/22/2024 10:59 AM GRDFxvljf512.6 cm (5' 4 )07/22/2024 10:59 AM EDTBody Mass Index26.43007/22/2024 10:59 AM EDT Plan of Treatment Health MaintenanceDue DateLast DoneCommentsMedicare Annual Wellness (AWV) 1948Depression Ajbjpbffc21/23/1961Zoster Vaccines (1 of 2)1998Adult Bbznvpn59Fall Risk Jwkkkztxw44/23/2014COVID-19 Vaccine (2 - season)Influenza Vaccine (#1)/, 11/24/2022, 01/20/2022, Additional history existsColonoscopyDiscontinued 05/12/2021olorectal Cancer ScreeningDiscontinuedPneumococcal Vaccine: 50+ Years Lcsyjrkie37/14/2023CT ColonographyDiscontinuedFIT-DNADiscontinuedFITDiscontinued FOBTDiscontinuedHIB VaccinesAged OutNo longer eligible based on patient's age to complete this topicHPV VaccinesAged OutNo longer eligible based on patient's age to complete this topicIPV VaccinesAged OutNo longer eligible based on patient's age to complete this topicMeningococcal B VaccineAged OutNo longer eligible based on patient's age to complete this topicMeningococcal VaccineAged OutNo longer eligible based on patient's age to complete this topicRotavirus Vaccines Aged OutNo longer eligible based on patient's age to complete this topic SigmoidoscopyDiscontinued Insurance Care Teams Team MemberRelationshipSpecialtyStart DateEnd Date Aleena Collado MD [address] [place] [address] PCP - GeneralNurse Practitioner07/21/24
--- OUTSIDE RECORDS SUMMARY | 2024-12-04 07:22 | XMS_ITS | Clinical Summary ---
Author Organization [facility] [employer] [facility] Address [id number] [address] [place] [address] Care Team Providers Care Glue Line Operator Name Role Phone Gerry Godwin MD Primary Care Provider [phone] Allergies Active AllergyReactionsCriticalityNoted TuwhZxcjywzsSrxbjynkysq50/23/2019 Medications MedicationSigDispense QuantityRefillsLast FilledStart DateEnd DateStatus metoprolol succinate XL (TOPROL-XL) 25 mg 24 hr tablet Take 1 tablet (25 mg total) by mouth in the morning.Active lisinopril-hydroCHLOROthiazide (PRINZIDE,ZESTORETIC) 10-12.5 mg per tablet Take 1 tablet by mouth in the morning.Active aspirin 81 mg Take 1 tablet (81 mg total) by mouth in the morning.Active clonazePAM (KlonoPIN) 0.5 mg tablet Take 1 tablet (0.5 mg total) by mouth in the morning and 1 tablet (0.5 mg total) before bedtime.Active cetirizine (ZyrTEC) 10 mg tablet Take 1 tablet (10 mg total) by mouth in the morning.Active hydroCHLOROthiazide (MICROZIDE) 12.5 mg capsule Take 1 capsule (12.5 mg total) by mouth daily.Active rosuvastatin (CRESTOR) 10 mg tablet Take 1 tablet (10 mg total) by mouth in the morning.Active traZODone (DESYREL) 100 mg tablet Take 1.5 tablets (150 mg total) by mouth nightly as needed for sleep.Active ferrous sulfate 325 (65 FE) mg tablet Indications:iron deficiency anemiaTake 1 tablet (325 mg total) by mouth daily with breakfast Indications: anemia from inadequate iron.Active baclofen (LIORESAL) 20 mg tablet Indications:muscle spasticity of spinal originTake 1 tablet (20 mg total) by mouth 3 (three) times a day Indications: muscle spasms caused by a spinal disease.Active clopidogreL (PLAVIX) 75 mg tablet Take 1 tablet (75 mg total) by mouth.Active furosemide (LASIX) 40 mg tablet Take 1 tablet (40 mg total) by mouth.02/13/2023ctive Active Problems ProblemNoted DateDiagnosed DateHLD (hyperlipidemia)07/02/20234971Lnlqjvunv18/08/2024 Essential pexidbczmeul47/08/2024Migraine with aura and without status migrainosus, not pcewktwjulv06/10/2024ecurrent major depressive disorder, in full xmzicopun44/10/2024oronary qvqoccvyqtljlgg62/10/2021 Overview (07/02/2023): Images from the original note [...] tolerated and continue all medications. Carotid artery ztaosmnh65/13/2021 Overview (07/02/2023): Images from the original note [...] statin. Status post placement of implantable loop uizsaqfc42/26/2019 Overview (06/17/2018): Medtronic Loop CVA (cerebral vascular accident)04/05/2018 Immunizations No known immunizations Family History Medical HistoryRelationNameCommentsHeart uiiiigNwgpxfdv7WtssijSerlxtItybc Tumor CirbekPixzaehdFyfnVeygmzMfnvmbpgWgmnmnzt0PihgzjrcDmloyqVbtwddqfKoslgvMgzkeyzv Social History Tobacco UseTypesPacks/DayYears UsedDateSmoking Tobacco: FormerCigarettes Smokeless Tobacco: NeverAlcohol UseStandard Drinks/WeekCommentsNo0 (1 standard drink = 0.6 oz pure alcohol)AUDIT-CAnswerDate RecordedFrequency of Alcohol BfhaxruvxxjQhirg97/23/2019Average Number of DrinksNot on file04/05/2018Frequency of Binge DrinkingNot on file04/05/2018PHQ-2AnswerDate RecordedTotal Score7 4ChildcareAnswerDate WpnhjddlJeoayvzbeUqvoxfe81/05/2019EmploymentAnswer Date IzsfeiumWievqsltwbFucwisk05/05/2019Purpose - LifeAnswerDate RecordedPurpose and direction in wimiSoabdwb10/12/2021CommentsNoSex and Gender InformationValueDate RecordedSex Assigned at BirthNot on fileLegal SexFemale 04/05/2018 8:14 AM ESTGender IdentityNot on fileSexual OrientationNot on file Last Filed Vital Signs Vital SignReadingTime TakenCommentsBlood Cverocrv597/6405 8:53 AM EDT Kssbb435907/02/2023 8:53 AM STEYpvkhfjbwim10.5 ??C (97.7 ??F)07/24/2018 12:23 PM EDTRespiratory Heer388107/24/2018 12:23 PM EDTOxygen Uqofrsewdb91%07/24/2018 12:23 PM EDTInhaled Oxygen Concentration--Qninca87.4 kg (137 lb 8 oz)07/02/2023 8:53 AM BLVVbvnhb304.4 cm (5')07/02/2023 8:53 AM EDTBody Mass Index26.85007/02/2023 8:53 AM EDT Plan of Treatment Health MaintenanceDue DateLast DoneCommentsZoster (Shingles) Vaccine (1 of 2) 1998Fall Risk Ijvfazdcw18/23/2014Depression Beppbqseq52/08/2023 Tobacco Rbihqdmtr21/OVID-19 Vaccine (2 - season) /02/2020Influenza Kzufiiw95/, 01/20/2022, 11/26/2020, Additional history existsDTaP,Tdap and Td Vaccines (2 - Tdap) /09/2020 Goals GoalPatient Goal TypeAssociated ProblemsRecent ProgressPatient-Stated?Author safe discharge home Bryanna Albrecht, LESTER Note: Evaluation of progress towards goal: return home with self care and family support safe discharge home Bryanna Albrecht RN Note: Evaluation of progress towards goal: Return home with self care and family support and resume outpatient therapy. Medical Devices ImplantedTypeAreaManufacturerDevice IdentifierShelf Expiration DateModel / Serial / LotSys Crd Rvl Linq Rpl [id number] - [id number] - [id number] [facility] MEDTRONIC CARD RHYTHM [id number]/10/2019LINQSYS / [id number] / Insurance Advance Directives * Full Code (Latest Code Status on File) Date ActivatedDate InactivatedComments07/22/2018 6:33 AM6 4:48 PM * Full Code Date ActivatedDate InactivatedComments04/05/2018 3:35 PM2 5:18 PM * Full Code Date ActivatedDate InactivatedComments04/05/2018 10:14 AM04/05/2018 3:35 PM Care Teams Team MemberRelationshipSpecialtyStart DateEnd Date Gerry Godwin MD PCP - GeneralFamily Medicine04/07/18
--- OUTSIDE RECORDS SUMMARY | 2024-12-04 07:23 | XMS_ITS | CCD ---
Author Organization [facility] Care Team Providers Care Product Strategy Director Name Role Phone Denver Juarez Unavailable Susie Arrington Unavailable MD Eddy Day Primary Care Provider MD Susie Arrington Attending Provider MD Gerry Godwin Primary Care Provider MD Eddy Day Attending Provider MD Denver Juarez Attending Provider Ilda Das Unavailable MD Eddy Day Primary Care Provider MD Gerry Godwin Primary Care Provider [phone] MD Eddy Day Attending Provider DO Rafiq Bahena Emergency Provider [phone] Al MD Ashleigh Roche Admit Provider MD Ashleigh Card Attending Provider [phone] LESTER Castañeda Other Provider Unavailable DO Tye Mendoza Other Provider MD Betito Arellano Other Provider MD Aneesh Zendejas Other Provider MD Shavon Leos Other Provider MD Brayan Ribera Other Provider CÉSAR Arenas Other Provider MD Shefali Garibay Other Provider MD Vannessa Nava Other Provider MD Alissa Young Other Provider Jose [facility] Maddie Westbrook Other Provider MD Anna Valladares Attending Provider NO FAMILY PHYSICIAN, 837 Primary Care Unavail able MIKE VIDES, - LUIS Attending Unavaila MD Eddy Swenson Primary Care Provider [phone] DO Rafiq Bahena Emergency Provider Al MD Ashleigh Roche Admit Provider MD Anna Valladares Attending Provider [phone] MD Gerry Godwin Primary Care Provider MD Eddy Day Attending Provider LIZ LANE Admitting Unavailable DAVIDLIZ Attending Unavailable FAWWAD, KAM H Primary Care Unavailable FAWWAD, KAM H Admitting Unavailable FAWWAD, KAM H Attending Unavailable FAWWAD, KAM H Primary Care Unavailable Nico, DR Senior Consulting Unavailable FAWWAD, KAM H Consulting Unavailable DAVID, LIZ Admitting Unavailable LIZ LANE Attending Unavailable FAWWAD, KAM H Primary Care Unavailable LILIAM LANEINDA Consulting Unavailable FAWWAD, KAM H Primary Care Unavailable ALONSO JACOBS Admitting Unavailable ALONSO JACOBS Attending Unavailable Natacha Jauregui Consulting Unavailable ALONSO JACOBS Consulting Unavailable SHANIA WASHINGTON Consulting Unavaila MANDI Chaidez Consulting Unavailable FAWWAD, KAM H Primary Care Unavailable YANIV, DR RAMSAY Admitting Unavailable YANIV, DR RAMSAY Attending Unavailable YANIV, DR RAMSAY Consulting Unavailable GABI, DR ORTIZ Consulting Unavailable LUCI MARADIAGA Consulting Unavailable MITZI LOWRY Consulting Unavailable BASIM CABAN Consulting Unavailable DAVID, LIZ Admitting Unavailable DAVIDLIZ Attending Unavailable FAWWAD, KAM H Primary Care Unavailable FAWWAD, KAM H Admitting Unavailable FAWWAD, KAM H Attending Unavailable FAWWAD, KAM H Primary Care Unavailable DR MITZI CHAU Consulting Unavailable FAWWAD, KAM H Consulting Unavailable RAYMUNDO, DIANA Admitting Unavailable RAYMUNDO, DIANA Attending Unavailable FAWWAD, KAM H Primary Care Unavailable RAYMUNDO, DIANA Consulting Unavailable FAWWAD, KAM H Admitting Unavailable FAWWAD, KAM H Attending Unavailable FAWWAD, KAM H Primary Care Unavailable FAWWAD, KAM H Consulting Unavailable MIRI BALTAZAR Consulting Unavailable FAWWAD, KAM H Admitting Unavailable FAWWAD, KAM H Attending Unavailable FAWWAD, KAM H Primary Care Unavailable FAWWAD, KAM H Consulting Unavailable Indra Lozada Consulting Unavailable FAWWAD, KAM H Admitting Unavailable FAWWAD, KAM H Attending Unavailable FAWWAD, KAM H Primary Care Unavailable FAWWAD, KAM H Consulting Unavailable FAWWAD, KAM H Admitting Unavailable FAWWAD, KAM H Attending Unavailable FAWWAD, KAM H Primary Care Unavailable DR MITZI CHAU Consulting Unavailable FAWWAD, KAM H Consulting Unavailable FAWWAD, KAM H Admitting Unavailable FAWWAD, KAM H Attending Unavailable FAWWAD, KAM H Primary Care Unavailable DR MITZI CHAU Consulting Unavailable FAWWAD, KAM H Consulting Unavailable FAWWAD, KAM H Primary Care Unavailable ALONSO JACOBS Admitting Unavailable ALONSO JACOBS Attending Unavailable ALONSO JACOBS Consulting Unavailable DORIAN GREENE Consulting Unavailable NATACHA CRUZ Consulting Unavailable FAWWAD, KAM H Primary Care Unavailable TATO, DR GERRY Carrasco Admitting Unavailable TATO, DR GERRY Carrasco Attending Unavailable CHERISE, DR INDRA Carias Consulting Unavaildelia LUONG, DR INDRA Carias Procedure Practitioner Julia vailable TATO, DR GERRY Carrasco Consulting Unavailable ALONSO JACOBS Procedure Practitioner Unavail able ALONSO JACOBS Consulting Unavailable LYNN OLSON Consulting Unavailable INDRA DE LA ROSA Consulting Unavailable SWAPNIL LARRY Consulting Unavailable FAWWAD, KAM H Primary Care Unavailable SHERRI MONTAGUE Consulting Unavailable EDDI, SHERRI Admitting Unavailable SHERRI MONTAGUE Attending Unavailable MARYSE LANGFORD Consulting Unavailable SHAIKH DAY H Attending Unavailable BARB, SHAIKH Be Primary Care Unavailable FASHAIKH RANDALL H Consulting Unavailable FAPRAKASH, H Admitting Unavailable FAPRAKASH, SHAIKH Be Primary Care Unavailable RADHA, ALONSO Admitting Unavailable ALONSO JACOBS Attending Unavailable JEAN-PIERRE GIRALDO Consulting Unavailable Natacha Jauregui Consulting Unavailable ALONSO JACOBS Consulting Unavailable MD Lazaro Dayikh Primary Care Provider CSÉAR Harris Attending Provider Earline Harris Unavailable Kori Temple Unavailable SHAIKH DAY Primary Care Physician MD Barb [facility] Primary Care Provider MD Eddy Day Attending Provider Barb VIDES [facility] Primary Care Provider [phone] MD Barb [facility] Primary Care Provider MD Denver Juarez Attending Provider [phone] MD Denver Juarez Admit Provider [phone] MOHINDER Still Attending Provider Hannah Still Attending Unavailable Hannah Still Admitting Unavailable MARTIN ARITA Attending Unavailable RABIA DUBOSE Referring Unavailable NADERER, [...] Orzech, Carmen X Admitting Unavailable MD Barb [facility] Primary Care Provider SANDRA Sumner-C Felicita Isaac Attending Provider Heaven DYE WEIGHER HELPER, Cindy Unavailable Tato VIDES, Gerry Primary Care Provider Shaikh Day MD Unavailable Aime Clark DO Unavailable [phone] Unallocated MD, Noms Provider Primary Care Provi neftali Marbin DO, Nakul Unavailable Claudio DYE WEIGHER HELPER, Ynes Unavailable Tucker DYE WEIGHER HELPER, Jameson Unavailable MD Barb [facility] Primary Care Provider DO Aime Clark Attending Provider Tato VIDES, Gerry Primary Care Provider [phone] Wang ZARCO, Saebel Unavailable Unavailable Shaikh Day MD Primary Care Provider Aime Clark DO Attending Provider BERNICE CLEMENTE Attending Unavailable BERNICE CLEMENTE Admitting Unavailable Gerry Godwin MD Primary Care Provider KAREY CLEMENTE Attending Unavailab KAREY García Attending Unavailab KAREY García Attending Unavailab KAREY García Admitting Unavailab KAREY García Attending Unavailab CINDY Spicer Referring Unavailable KAREY CLEMENTE Attending Unavailab le BERNICE CLEMENTE Attending Unavailable BERNICE CLEMENTE Admitting Unavailable Kori German Attending Unavailable CORRIEBERNICE VU Attending Unavailable Aichholz DYE WEIGHER HELPER, Cindy Unavailable Claudio DYE WEIGHER HELPER, Ynes Unavailable Gerry Godwin MD Unavailable BERNICE CLEMENTE Attending Unavailable Alexandr OVALLE Admitting Unavailable OVALLEAlexandr Attending Unavailable BERNICE CLEMENTE Attending Unavailable CINDY COLLADO Primary Care Physician RUBEN SALVADOR Attending Unavailable RUBEN SALVADOR Attending Unavailable CORRIEBERNICE VU Attending Unavailable CORRIEBERNICE VU Admitting Unavailable BERNICE CLEMENTE Attending Unavailable Alexandr OVALLE Admitting Unavailable Alexandr OVALLE Attending Unavailable Nakul Zazueta DO Unavailable Claudio DYE WEIGHER HELPER, Ynes Unavailable Tucker DYE WEIGHER HELPER, Jameson Unavailable Unavailable Milton Piña MA Unavailable CINDY COLLADO Attending Unavailable JAMESON MCLEOD Attending Unavailable AICBeHOLCINDY Saini Attending Unavailable CHAIM HARE Attending Unavailable MCLEODJMAESON AYERS Referring Unavailable AICCINDY FIGUEROA Attending Unavailable SHAIKH DAY Attending Unavailable SHAIKH DAY Attending Unavailable AICHHOLCINDY Saini Attending Unavailable AIME CLARK Attending Unavailable AICHHOLZ, CINDY Referring Unavailable NAKUL ZAZUETA Attending Unavailable AICHHOLCINDY Saini Attending Unavailable Tucker TRAIN CONTROL TECHNICIAN-VEGETABLE FARMER-C, Jameson E Attending Provider Cindy Collado Primary Care Provider BERNICE CLEMENTE Attending Unavailable Alexandr OVALLE Referring Unavailable OVALLE, Alexandr R Admitting Unavailable OVALLE, Alexandr R Attending Unavailable OVALLE, Alexandr R Attending Unavailable OVALLE, Alexandr R Referring Unavailable OVALLE, Alexandr R Admitting Unavailable OVALLE, Alexandr R Admitting Unavailable OVALLE, Alexandr R Attending Unavailable OVALLE, Alexandr R Attending Unavailable Orzech, Carmen X Attending Unavailable Alexandr OVALLE Attending Unavailable OrzechCarmen X Attending Unavailable Alexandr OVALLE Admitting Unavailable Alexandr OVALLE Attending Unavailable Alexandr OVALLE Referring Unavailable Orzech, Carmen X Admitting Unavailable Orzech, Carmen X Attending Unavailable Orzech, Carmen X Attending Unavailable Denver Juarez Attending Unavaildelia Day, [facility] Primary Care Unavailable Denver Juarez Admitting UnavailAime Hernandez Admitting Unavailable Aime Clark Attending Unavailable Barb, [facility] Primary Care Unavailable Cindy Collado Admitting Unavailable Cindy Collado Primary Care Unavailable Cindy Collado Attending Unavailable Erickhholbharati DYE WEIGHER HELPER-C, Cindy Perry Primary Care Provider [phone] Heaven DYE WEIGHER HELPER-CCindy Attending Provider [phone] Tucker LINDSEY-VEGETABLE FARMER-CJameson Attending Provider Allergies Allergy ClassificationReported Allergen(s)Allergy TypeDate of OnsetReaction(s) Facility (20 sources)Penicillin GDrug Lnenxgb09-09-2756ApvwyubZPDO [facility] (20 sources)Penicillins; Translations: [PENICILLINS]Allergy to substance 66-49-6053MeyyAhzreweoxOhioHealth [facility] (1 source)PenicillinDrug Yjnxkae48-13-3847Rzr Repository (20 sources)Penicillin; Translations: [penicillin]Drug AllergyExecutive [facility] Medications Current Medications MedicationDrug Class(es)DatesSig (Normalized)Sig (Original)acetaminophen 325 mg / HYDROcodone bitartrate 5 mg oral tablet (1 source)Opioid AgonistStart: 48-34-4737qmtq 1-2 tablets by mouth every four to six hours as neededHYDROcodone-Acetaminophen 5-325 MG 1-2 tablet as needed Orally every 4-6 hrs for 7 days Mar, [id number] 200 actuat albuterol 0.09 mg/actuat metered dose inhaler (5 sources)beta2-Adrenergic Agonist End: 51-62-4713oeso 2 puff(s) by inhalation every four hoursalbuterol HFA 90 mcg/act inhaler Inhale 2 puffs every 4 (four) hours if needed for shortness of breath 10/22/2023 Discontinued (Therapy completed)amLODIPine 2.5 mg oral tablet (20 sources)Dihydropyridine Calcium Channel BlockerStart: 08-28-2022 End: 74-60-5383melm 1 tablet by mouth once dailyAmlodipine 2.5 mg tablet Active 2.5 MG PO Daily April 09, 2023 1:00am FreeTextSi tablet Orally Once a day; Note: Source Status: Taking; Provider: Windy Sheikh ( ) Complies with drug therapyascorbic acid 500 mg oral tablet (20 sources)Vitamin CStart: 26-87-9019thjn 1 tablet by mouth once dailyAscorbic Acid (Vitamin C) 500 mg tablet Active 500 MG PO Daily November 08, 2024 12:00am Complies with drug therapyStart: 40-54-0893Cjzqnjv C See Instructions, Refills(s) 0 Start Date: 04/14/24 Status: Ordered Repeat number: 1Start: 89-59-5305Ofpvfxd C See Instructions, Refills(s) 0 Start Date: 04/14/24 Status: Orderedtake 1 tablet by mouth once dailyascorbic acid (Vitamin C) 500 MG tablet Take 500 mg by mouth Daily Activeaspirin 81 mg chewable tablet (20 sources)Platelet Aggregation Inhibitor, Nonsteroidal Anti-inflammatory Drug Start: 01-16-2023 End: 65-79-8807frhx 1 tablet by mouth once dailyAspirin 81 mg tablet,chewable Active 81 MG PO Daily April 12, 2023 1:00am FreeTextSi tablet Orally Once a day; Note: Source Status: Taking; Provider: Windy Sheikh ( ) Complies with drug therapyStart: 03-23-2020 End: 21-50-1546kxuf 1 tablet by mouth once dailyAspirin 81 mg Tablet,Delayed Release (Dr/Ec) Discontinued 81 MG PO Daily March 23, 2020 1[facility] [place] [facility] 9:44am CVA preventionStart: 04-10-2018 End: 00-16-8843njzy 1 tablet by mouth once dailyAspirin 81 mg Tablet,Chewable Discontinued 81 MG PO Daily 0 0 April 18, 2018 1:00am March 5:28pm Start: 04-10-2018 End: 86-34-3917mrpw 1 tablet by mouth once daily in the morningAspirin 81 mg tablet,chewable Discontinued 81 MG PO Every morning March 26, 2019 5:28pm March 23, 2020 1:03pm cvabaclofen 20 mg oral tablet (20 sources)gamma-Aminobutyric Acid-ergic AgonistStart: 08-12-2024 End: 90-76-8517yphg 1 tablet by mouth every eight hours as needed for muscle spasms and muscle spasmsbaclofen (Lioresal) 20 MG tablet Indications: Muscle spasm Take 1 tablet (20 mg) by mouth every 8 (eight) hours if needed for muscle spasms 90 tablet 2 08/12/2024 ActiveStart: 19-24-5334DPBQEXSK 20MG TAB BACLOFEN 20MG TAB Start Date: 03/07/23 Status: Ordered Repeat number: 1Start: 03-07-2023 BACLOFEN 20MG TAB BACLOFEN 20MG TAB Start Date: 03/07/23 Status: OrderedStart: 04-05-2018 End: 49-79-5622lore 1 tablet by mouth three times daily as neededBaclofen 20 mg tablet Active 20 MG PO Three times daily as needed for muscle spams November 08, 2024 12:06pm Complies with drug therapytake 1 tablet by mouth twice daily at mealtime as neededBaclofen 20 MG 1 tablet Administer without regards to meals as needed Orally Twice a day Activetake 1 tablet by mouth every eight hours Baclofen 20 MG 1 tablet with food or milk Orally every 8 hrs for 30 day(s) Activecetirizine hydrochloride 10 mg oral tablet (20 sources)Histamine-1 Receptor AntagonistStart: 20-77-4110xhtk 1 tablet by mouth once daily as neededCetirizine 10 mg tablet Active 10 MG PO Daily as needed November 08, 2024 12:00am Complies with drug therapyStart: 02-18-2020 End: 14-59-9324lhih 1 tablet by mouth once dailyCetirizine (All Day Allergy (Cetirizine)) 10 mg Tablet Discontinued 10 MG PO Daily February 18, 2020 1:00am November 21, 2021 11:26am allergy symptomsD-Mannose (2 sources)Start: 33-21-9412mpsr 1 mg by mouth onceD-Mannose (Azo D-Mannose) 500 mg capsule Active MG PO November 08, 2024 12:00am Complies with drug therapy D-Mannose 500 MG capsule (20 sources)take 1 capsule by mouth once dailyD-Mannose 500 MG capsule Take 500 mg by mouth Daily [facility] Activediclofenac sodium 0.01 mg/mg topical gel (6 sources)Nonsteroidal Anti-inflammatory DrugStart: 21-21-8057Khwnsmke 1 % apply 1-2 grams to affected area Transdermal twice daily for 30 days Jul, Activedoxycycline hyclate 100 mg oral capsule (20 sources)Tetracycline-class DrugStart: 09-15-2024 End: 38-46-2333hnpp 1 capsule by mouth in the morningdoxycycline (Vibramycin) 100 MG capsule Take 100 mg by mouth in the morning and 100 mg before bedtime. 09/15/2024 ActiveStart: 09-16-3010hpal 1 capsule by mouth once dailydoxycycline hyclate 100 mg Cap 100 mg = 1 cap(s), Oral, Daily, Start the day before the procedure, # 14 cap(s), Refills(s) 0, Pharmacy: [facility], 160, cm, 07/16/24 10:45:00 EDT, Height/Length Dosing, 61, kg, 07/16/24 10:45:00 EDT, Weight Dosing Start Date: 09/09/24 Status: Ordered Quantity: 14.0 Unit: cap(s) Repeat number: 1Start: 05-08-2024 End: 63-94-3493maht 1 tablet by mouth in the morningdoxycycline (Vibra-Tabs) 100 MG tablet Take 100 mg by mouth in the morning and 100 mg before bedtime. 05/08/2024 08/11/2024 Discontinued (Therapy completed)Start: 30-16-6228xmuf 1 capsule by mouth every twelve hoursDoxycycline Hyclate 100 MG 1 capsule Orally Twice a day for 5 day(s) Mar, Activeestradiol 0.1 mg/ml vaginal cream (20 sources)EstrogenStart: 05-33-3206Spgxforur 0.01 % (0.1 mg/gram) cream Active 1 GM VAGINAL 3 Times a week November 08, 2024 12:00am Complies with drug therapyStart: 07-27-7390miyfbgscb (Estrace) 0.1 MG/GM vaginal cream apply a pea- sized amount vaginally and around the urethra NIGHTLY TIME 3 (THREE) weeks, then 3 (THREE) times per week thereafter 04/01/2024 ActiveStart: 46-82-7933Osfysbw 0.1 mg/g Cream See Instructions, 42.5 gm, Refill(s) 6, apply a pea-sized amount vaginally and around the urethra nightly x 3 weeks, then 3x per week thereafter, [facility], 160, cm, 04/01/24 8:56:00 EST, Height/Length Dosing, 60, kg, 04/01/24 8:56:00 EST, Weight Dosing StartDate: 04/01/24 Status: Ordered Quantity: 42.5 Unit: g Repeat number: 7FeroSul (2 sources)FeroSul ActiveFeroSul 325 mg oral tablet (20 sources)Start: 73-30-5836fooo 1 mg by mouth three times dailyFeroSul 325 mg oral tablet mg tab(s), Oral, TID, Refills(s) 0 Start Date: 03/07/23 Status: Ordered Repeat number: 1Start: 00-19-8220bavp 1 mg by mouth three times daily FeroSul 325 mg oral tablet mg tab(s), Oral, TID, Refills(s) 0 Start Date: 03/07/23 Status: Orderedferrous sulfate 325 mg oral tablet (20 sources)Start: 11-13-2022 End: 01-59-1414rirv 1 tablet by mouth at mealtimeferrous sulfate 325 (65 Fe) MG EC tablet Take 1 tablet by mouth in the morning. Take with meals. 11/13/2022 10/22/2023 Discontinued (Therapy completed)Start: 11-21-2021 End: 21-59-8302lbic 1 tablet by mouth once dailyFerrous Sulfate (Ferosul) 325 mg (65 mg iron) tablet Active 325 MG PO Daily November 21, 2021 12:00am Complies with drug therapyStart: 12-12-2018 End: 47-00-7114byov 1 tablet by mouth every other weekFerrous Sulfate 324 mg (65 mg iron) tablet,delayed release (DR/EC) Discontinued 324 MG PO EVERY 2 WEEKS December 12, 2018 10:27am February 18, 2020 1:28pmStart: 04-18-2018 End: 76-08-0125dfet 1 tablet by mouth twice dailyFerrous Sulfate 324 mg (65 mg iron) Tablet,Delayed Release (Dr/Ec) Discontinued 324 MG PO Twice daily 60 30 0 April 18, 2018 1:00am December 12, 2018 10:28amfurosemide 20 mg oral tablet (20 sources)Loop DiureticStart: 89-54-7177xbdl 2 tablets by mouth once daily Furosemide 20 mg tablet Active 40 MG PO Daily November 08, 2024 12:09pm Complies with drug therapyStart: 65-60-3115vqpz 10 mg by mouth once dailyLasix 20 mg Tab 10 mg = 0.5 tab(s), Oral, Daily Start Date: 04/01/24 Status: Ordered Repeat number: 1Start: 02-13-2023 End: 14-40-0419ebjnnwhypk (Lasix) 40 MG tablet Take 20 mg by mouth Daily Pt takes 20mg 02/13/2023 ActiveStart: 02-13-2023 End: 70-60-5884mpkfxcaqxm 40 mg Tab Refills(s) 0 Start Date: 03/07/23 Status: OrderedStart: 11-21-2021 End: 13-28-9959kjuc 1 tablet by mouth every other dayFurosemide 20 mg tablet Discontinued 20 MG PO .every other day November 21, 2021 12:00am 2024 12:11pm 20mg 2 tabsStart: 75-29-6199vbid 20 mg by mouth once daily in the morningFurosemide Active 20 MG PO Every morning November 20, 2021 11:00pmtake 2 tablets by mouth every other dayFurosemide 20 MG 2 tablets Orally every other day Activehydrocortisone 10 mg/ml / neomycin 3.5 mg/ml / polymyxin b 85348 unt/ml otic solution (2 sources)Aminoglycoside Antibacterial, Polymyxin-class Antibacterial, CorticosteroidStart: 2024 End: 1379eouomfbc-polymyxin-hydrocortisone (Cortisporin) otic solution Indications: Acute diffuse otitis externa of both ears Administer 4 drops into each ear in the morning and 4 drops in the evening and 4 drops before bedtime. Do all this for 10 days. 10 mL 2024 06/13/2024 Activemeclizine hydrochloride 25 mg oral tablet (20 sources)AntiemeticStart: 05-29-2024 End: 97-89-0127rkuz 1 tablet by mouth oncemeclizine (Antivert) 25 MG tablet Indications: Dizziness and giddiness Take 1 tablet (25 mg) by mouth every 12 (twelve) hours if needed for dizziness 60 tablet 05/29/2024 06/28/2024 Active Start: 06-25-2023 End: 63-77-5349girj 1 tablet by mouth three times daily as needed for dizziness meclizine (Antivert) 25 MG tablet Indications: Dizziness and giddiness Take 1 tablet (25 mg) by mouth 3 (three) times a day as needed for dizziness 270 tablet 08/05/2023 11/03/2023 Activemethenamine hippurate 1000 mg oral tablet (20 sources)Start: 81-48-2678Rjmrichynzj Hippurate 1 gram tablet Active 1 GM PO Twice daily November 08, 2024 12:00am Complies with drug therapyStart: 52-27-5407mzad 1 tablet by mouth in the morningmethenamine hippurate (Hiprex) 1 g tablet Take 1 g by mouth in the morning and 1 g before bedtime. 04/14/2024 ActiveStart: 04-14-2024 End: 40-18-8102lovk 1 tablet by mouth twice dailymethenamine hippurate 1 g oral tablet 1 gm = 1 tab(s), Oral, BID, X 30 day(s), # 60 tab(s), Refills(s) 11, Pharmacy: [facility], 160, cm, 04/14/24 12:55:00 EST, Height/Length Dosing, 61, kg, 04/14/24 12:55:00 EST, Weight Dosing Start Date: 04/14/24 Stop Date: 04/09/25 Status: Ordered Quantity: 60.0 Unit: tab(s) Repeat number: 12 Indications: Urinary tract infection, site not specified;24 hr mirabegron 50 mg extended release oral tablet (7 sources)beta3-Adrenergic AgonistStart: 07-16-2024 End: 61-11-7331yskg 1 tablet by mouth once dailyMyrbetriq 50 mg oral tablet, extended release 50 mg = 1 tab(s), Oral, Daily, X 30 day(s), # 30 tab(s), Refills(s) 11, Pharmacy: [facility], 160, cm, 04/14/24 12:55:00 EST, Height/Length Dosing, 61, kg, 04/14/24 12:55:00 EST, Weight Dosing Start Date: 07/16/24 Stop Date: 07/11/25 Status: Ordered Quantity: 30.0 Unit: tab(s) Repeat number: 12nitrofurantoin, macrocrystals 25 mg / nitrofurantoin, monohydrate 75 mg oral capsule (7 sources)Nitrofuran AntibacterialStart: 01-21-2024 End: 00-80-6525sttx 1 capsule by mouth in the morningnitrofurantoin, macrocrystal-monohydrate, (Macrobid) 100 MG capsule Indications: UTI symptoms Take 1 capsule (100 mg) by mouth in the morning and 1 capsule (100 mg) before bedtime. Do all this for 7 days. 14 capsule 01/21/2024 01/28/2024 ActiveStart: 11-19-2023 End: 56-03-3162voit 1 capsule by mouth in the morningnitrofurantoin, macrocrystal-monohydrate, (Macrobid) 100 MG capsule Indications: Urinary tract infection symptoms Take 1 capsule (100 mg) by mouth in the morning and 1 capsule (100 mg) before bedtime. Do all this for 7 days. 14 capsule 11/19/2023 11/26/2023 ActiveStart: 07-15-2023 End: 12-79-3173hech 1 capsule by mouth twice dailyMacrobid 100 mg Cap 100 mg = 1 cap(s), Oral, BID, X 7 day(s), # 14 cap(s), Refills(s) 0, Pharmacy: [id number], 160, cm, 07/15/23 12:40:00 EDT, Height/Length Dosing, 60, kg, 07/15/23 12:40:00 EDT, Weight Dosing Start Date: 07/15/23 Stop Date: 07/22/23 Status: Orderedondansetron 8 mg disintegrating oral tablet (4 sources)Serotonin-3 Receptor AntagonistStart: 07-05-5369qpbb 1 tablet by mouth every eight hours as neededOndansetron 8 MG 1 tablet on the tongue and allow to dissolve as needed Orally every 8 hours as needed for 3 days Sep, ActiveProbiotic Product (PROBIOTIC/PREBIOTIC/CRANBERRY PO) (20 sources)take 60 mg by mouth once dailyProbiotic Product (PROBIOTIC/PREBIOTIC/CRANBERRY PO) Take 60 mg by mouth Daily ActiveQUEtiapine 50 mg oral tablet (20 sources)Atypical AntipsychoticStart: 03-26-2019 End: 96-80-0822bxuh 1 tablet by mouth once daily at bedtimeQuetiapine 50 mg tablet Active 50 MG PO Daily at bedtime March 26, 2019 1:00am insomnia Complies with drug therapyrosuvastatin calcium 20 mg oral tablet (20 sources)HMG-CoA Reductase InhibitorStart: 08-28-2022 End: 72-27-2385pust 1 tablet by mouth once dailyRosuvastatin 20 mg tablet Active 20 MG PO Daily April 09, 2023 1:00am FreeTextSi tablet Orally Once a day; Note: Source Status: Taking; Provider: Windy Sheikh ( ) Complies with drug therapyStart: 12-12-2018 End: 75-78-3719yajq 1 tablet by mouth once daily at bedtimeRosuvastatin (Crestor) 10 mg Tablet Discontinued 10 MG PO Daily at bedtime December 12, 2018 12:00am April 09, 2023 10:45am hyperlipidemiaStart: 04-10-2018 End: 21-08-9696xfov 1 tablet by mouth at bedtimeRosuvastatin (Crestor) 10 mg Tablet Discontinued 10 MG PO Bedtime 30 30 0 April 18, 2018 7:54am May 17, 2018 12:00am May 18, 2018 12:02amRosuvastatin Calcium Activesulfamethoxazole 800 mg / trimethoprim 160 mg oral tablet (18 sources)Dihydrofolate Reductase Inhibitor Antibacterial, Sulfonamide AntimicrobialStart: 04-06-2024 End: 02-63-7107Zljhket D.S. 800 mg-160 mg Tab 1 tab(s), Oral, BID for 14 day(s), 28 tab(s), Refill(s) 0, [facility], 160, cm, 04/01/24 8:56:00 EST, Height/Length Dosing, 60, kg, 04/01/24 8:56:00 EST, Weight Dosing Start Date: 04/06/24 Stop Date: 04/20/24 Status: OrderedStart: 02-20-2024 End: 72-08-4554ofjc 1 tablet by mouth once in the morning, then take 1 tablet by mouth once at bedtimesulfamethoxazole-trimethoprim (Bactrim DS) 800-160 MG per tablet Take 1 tablet by mouth in the morning and 1 tablet before bedtime. 02/20/2024 05/12/2024 Discontinued (Therapy completed)Start: 10-30-2023 End: 46-17-6000elum 1 tablet by mouth once in the morning, then take 1 tablet by mouth once at bedtimesulfamethoxazole-trimethoprim (Bactrim DS) 800-160 MG per tablet Indications: Acute cystitis without hematuria Take 1 tablet by mouth in the morning and 1 tablet before bedtime. Do all this for 7 days. 14 tablet 10/30/2023 11/06/2023 ActiveStart: 05-11-2023 End: 97-21-7523ntul 1 tablet by mouth twice dailySulfamethoxazole-Trimethoprim 800-160 mg tablet Discontinued 1 TAB PO Twice daily 10 5 0 May 11, 2023 12:00am February 20, 2024 11:35amtopiramate 50 mg oral tablet (20 sources)Start: 01-33-2858Nyzctsghxt 50 mg tablet Active 25 MG PO Daily at bedtime November 26, 2024 10:03am Complies with drug therapyStart: 11-21-2021 End: 82-46-0478hqjm 1 tablet by mouth once dailyTopiramate 50 mg tablet Discontinued 50 MG PO Daily November 21, 2021 12:00am November 26, 2024 10 :03am24 hr trospium chloride 60 mg extended release oral capsule (20 sources)Cholinergic Muscarinic AntagonistStart: 08-60-3387Gzjzdkkt 60 mg capsule,extended release 24hr Active 20 MG PO Daily December 03, 2024 11:50am must be taken on empty stomach at least 1 hour before a meal/food with water only Complies with drug therapyStart: 86-85-5521jtgm 1 capsule by mouth every twenty-four hours in the morningtrospium (Sanctura XR) 60 MG 24 hour capsule Take 60 mg by mouth in the morning. 05/14/2024 ActiveStart: 03-07-2023 End: 70-54-3066sblt 1 capsule by mouth once daily 1 hour(s) before mealtime Trospium 60 mg capsule,extended release 24hr Discontinued 60 MG PO Daily April 09, 2023 1:00amOct2024 11:51am must be taken on empty stomach at least 1 hour before a meal/food with water only End: 31-91-4871yksx 3 tablets by mouth in the morningtrospium (Sanctura) 20 MG tablet Take 60 mg by mouth in the morning and 60 mg before bedtime. 08/11/2024 Discontinued (Therapy completed)ubrogepant 100 mg oral tablet (3 sources) End: 81-80-1234Nozfpkkjyy (Ubrelvy) 100 MG tablet Take 100 mg by mouth 10/22/2023 Discontinued (Therapy completed)vibegron 75 MG Oral Tablet (4 sources)Start: 53-17-3305sqfb 1 tablet by mouth once dailyvibegron 75 mg oral tablet 75 mg = 1 tab(s), Oral, Daily, # 30 tab(s), Refills(s) 11, Pharmacy: [facility]14, 160, cm, 04/14/24 12:55:00 EST, Height/Length Dosing, 61, kg, 04/14/24 12:55:00 EST, Weight Dosing Start Date: 07/16/24 Status: Ordered Quantity: 30.0 Unit: tab(s) Repeat number: 12Vitamin B-12 1000 MCG (7 sources)take 1 tablet by mouth once dailyVitamin B-12 1000 MCG 1 tablet Orally Once a day Active Completed/Discontinued Medications MedicationDrug Class(es)DatesSig (Normalized)Sig (Original)acetaminophen 325 mg oral tablet (20 sources)Start: 03-26-2019 End: 42-73-8121afrz 325-650 mg by mouth once daily as needed for headache Acetaminophen 325 mg tablet Discontinued 325 - 650 MG PO Daily as needed for Headache March 26, 2019 5:28pm April 09, 2023 10:46amStart: 04-18-2018 End: 04-14-8522snck 1 tablet by mouth every four hours as needed for pain Acetaminophen 325 mg Tablet Discontinued 325 MG PO Q4H as needed for Pain 0 0 April 18, 2018 1:00am March 26, 2019 5:28pmcephalexin 500 mg oral capsule (14 sources)Cephalosporin AntibacterialStart: 11-22-2021 End: 04-51-1895tqer 1 capsule by mouth three times dailyCephalexin 500 mg capsule Discontinued 500 MG PO Three times daily 15 5 0 November 22, 2021 12:00am April 09, 2023 10:46amciprofloxacin 500 mg oral tablet (11 sources)Quinolone AntimicrobialStart: 72-59-8289lrgp 1 tablet by mouth once dailyCipro 500 mg Tab 500 mg = 1 tab(s), Oral, Daily, Take 1 tablet the day before the procedure and 1 tablet after the procedure, # 2 tab(s), Refills(s) 0, Pharmacy: [facility]14, 160, cm, 07/16/24 10:45:00 EDT, Height/Length Dosing, 61, kg, 07/16/24 10:45:00 EDT, Weight Dosing Start Date: 07/16/24 Status: Ordered Quantity: 2.0 Unit: tab(s) Repeat number: 1Start: 01-23-2024 End: 30-21-1591twmcldkggcsgf 500 mg Tab Refills(s) 0 Start Date: 01/29/24 Status: OrderedclonazePAM 0.5 mg oral tablet (20 sources)BenzodiazepineStart: 04-05-2018 End: 78-30-0811pacz 1 tablet by mouth twice dailyClonazepam 0.5 mg Tablet Discontinued 0.5 MG PO Twice daily December 12, 2018 12:00am November 08, 2024 12:11pmtake 1 tablet by mouth every twenty-four hoursclonazePAM 0.5 MG 1 tablet at bedtime Orally Once a day Activeclopidogrel 75 mg oral tablet (20 sources)P2Y12 Platelet InhibitorStart: 12-12-2018 End: 95-07-7838cevf 1 tablet by mouth once dailyClopidogrel (Plavix) 75 mg tablet Discontinued 75 MG PO Daily 90 90 3 April 09, 2023 1:00am November 26, 2024 10:02am Stenosis of carotid artery Occlusion and stenosis of unspecified carotid arterydocusate sodium 100 mg oral capsule (20 sources)Start: 04-18-2018 End: 62-06-1164rkjd 1 capsule by mouth twice daily as needed for constipation Docusate Sodium 100 mg Capsule Discontinued 100 MG PO Twice daily as needed for Constipation 60 30 0 April 18, 2018 1:00am December 12, 2018 10:29amtake 1 capsule by mouth every twenty-four hoursDocusate Sodium 100 MG 1 capsule as needed Orally Once a day for 30 day(s) Not-TakinghydroCHLOROthiazide 12.5 mg oral tablet (20 sources)Thiazide DiureticStart: 12-12-2018 End: 98-93-5430muzv 1 tablet by mouth once daily in the morning Hydrochlorothiazide 12.5 mg Tablet Discontinued 12.5 MG PO Every morning December 12, 2018 12:00amFebruary 2020 1:05pm htntake 1 capsule by mouth once dailyhydroCHLOROthiazide (MICROZIDE) 12.5 mg capsule Take 1 capsule (12.5 mg total) by mouth daily. ActivehydroCHLOROthiazide 12.5 mg / lisinopril 10 mg oral tablet (20 sources)Thiazide Diuretic, Angiotensin Converting Enzyme InhibitorStart: 04-05-2018 End: 98-12-9864aezm 1 tablet by mouth once daily in the morningLisinopril- Hydrochlorothiazide 10-12.5 mg tablet Discontinued 1 TAB PO Every morning March 5:28pm April 09, 2023 10:45am htntake 10-12.5 mg by mouth once in the morninglisinopril-hydroCHLOROthiazide (PRINZIDE,ZESTORETIC) 10-12.5 mg per tablet Take 1 tablet by mouth in the morning. ActiveLisinopril- hydroCHLOROthiazide Activeibuprofen 800 mg oral tablet (16 sources)Nonsteroidal Anti-inflammatory DrugStart: 04-05-2018 End: 84-94-4230lmur 1 tablet by mouth three times dailyIbuprofen 800 mg Tablet Discontinued 800 MG PO Three times daily April 05, 2018 1:00am April 18, 2018 7:51am24 hr metoprolol succinate 25 mg extended release oral capsule (20 sources)beta-Adrenergic BlockerStart: 04-09-2023 End: 81-23-7681amrg 1 capsule by mouth once dailyMetoprolol Succinate 25 mg capsule,sprinkle,ER 24hr Discontinued 25 MG PO Daily April 0941:00am November 08, 2024 12:11pm FreeTextSi capsule Orally Once a day; Note: Source Status: Taking; Provider: Windy Sheikh ( )Start: 03-07-2023 End: 03-79-7415ezss 1 tablet by mouth once dailyMetoprolol Succinate 25 mg tablet extended release 24 hr Active 25 MG PO daily November 082:00am Complies with drug therapyStart: 01-28-2023 End: 22-98-2367gepj 1 tablet by mouth every twenty-four hours in the morning metoprolol succinate XL (Toprol-XL) 25 MG 24 hr tablet Indications: Primary hypertension (CMS/HCC) take 1 tablet by mouth IN THE MORNING DO NOT CRUSH OR CHEW 90 tablet 1 07/22/2023 10/22/2023 Discontinued (Reorder)Start: 04-05-2018 End: 02-30-2412fxtl 1 tablet by mouth once daily in the morningMetoprolol Succinate 25 mg tablet extended release 24 hr Discontinued 25 MG PO Every morning March 26, 2019 5:33pm November 22, 2021 1:21pm htntake 1 capsule by mouth once dailyMetoprolol Succinate 25 MG 1 capsule Orally Once a day for 30 day(s) Activenaproxen 500 mg oral tablet (16 sources)Nonsteroidal Anti-inflammatory DrugStart: 04-05-2018 End: 23-68-2046mrjr 1 tablet by mouth twice daily as needed for painNaproxen 500 mg Tablet Discontinued 500 MG PO Twice daily as needed for Pain April 05, 2018 1:00am April 18, 2018 7:51amphenazopyridine hydrochloride 200 mg oral tablet (9 sources)Start: 05-11-2023 End: 96-74-4677htea 1 tablet by mouth every eight hoursPhenazopyridine (Pyridium) 200 mg tablet Discontinued 200 MG PO Every 8 hours 6 2 0 May 11, 2023 12:00am November 08, 2024 12:10pmpotassium chloride 10 meq extended release oral capsule (20 sources)Start: 39-75-9296Gzmiomflh Chloride (Pho-Cyir-Uhs M10) 10 mEq oral tablet, extended release Refills(s) 0 Start Date:03/07/23 Status: Ordered Repeat number: 1Start: 61-03-3772Clqilkvau Chloride (Pbj-Pqly-Ybl M10) 10 mEq oral tablet, extended release Refills(s) 0 Start Date:03/07/23 Status: OrderedStart: 02-13-2023 End: 98-78-9125vzqnluooy chloride (KLOR-CON M 10) 10 MEQ CR tablet Take 1 tablet (10 mEq total) by mouth. 02/13/2023 02/13/2024 ActiveStart: 02-07-2023 End: 99-77-3558vpnl 1 capsule by mouth once dailyPotassium Chloride 10 mEq capsule, extended release Discontinued 10 MEQ PO Daily April 09, 2023 1:00am November 02, 2024 2:02pmtraZODone hydrochloride 100 mg oral tablet (20 sources)Serotonin Reuptake InhibitorStart: 03-26-2019 End: 06-59-5044Mncblxjrb 100 mg tablet Discontinued March 26, 2019 1:00am March 26, 2019 6:06pmStart: 03-26-2019 End: 26-83-1177Lnsjyylnv 100 mg tablet Discontinued TABLET March 26, 2019 12:00am March 26, 2019 5:06pmStart: 03-26-2019 End: 97-10-1905Dahrljnwr Discontinued TABLET March 26, 2019 12:00am March 26, 2019 5:06pmStart: 03-26-2019 End: 37-70-3186Jtyxvmakn Discontinued TABLET March 26, 2019 1:00am March 26, 2019 6:06pmStart: 95-56-9516jldi 1 tablet by mouth every twenty-four hourstraZODone HCl 100 MG 1 tablet at bedtime Orally Once a day for 30 day(s) May, Not-Takingtake 1.5 tablets by mouth once daily as needed for sleep traZODone (DESYREL) 100 mg tablet Take 1.5 tablets (150 mg total) by mouth nightly as needed for sleep. ActivetraZODone (DESYREL) 100 mg tablet Take 150 mg by mouth nightly as needed for sleep. 0 Activetriamcinolone acetonide 40 mg/ml injectable suspension (10 sources)CorticosteroidStart: 62-97-3032Bogonhm-40 May, 20 mgVibegron 75 MG tablet (3 sources)Start: 07-16-2024 End: 70-82-6538ycoi 1 tablet by mouth once dailyVibegron 75 MG tablet Take 75 mg by mouth Daily 07/16/2024 08/11/2024 Discontinued (Cost of medication)Start: 71-32-8101mhqv 1 tablet by mouth once dailyVibegron 75 MG tablet Take 75 mg by mouth Daily 07/16/2024 Activevitamin b12 2 mg extended release oral tablet (20 sources)Vitamin G80Jvtyz: 11-22-2021 End: 94-03-2461Hghnxaeiqiijfd (Vitamin B-12) (Vitamin B-12) 2,000 mcg Tablet Extended Release Discontinued 1000 MCG PO Daily 1 0 November 22, 2021 4:44pm April 09, 2023 10:46amStart: 03-23-2020 End: 84-61-0400gvqv 1 tablet by mouth once dailyCyanocobalamin (Vitamin B-12) (Vitamin B-12) 2,000 mcg Tablet Extended Release Discontinued 2000 MCG PO Daily March 23, 2020 1:00am November 22, 2021 4:44pmtake 1 tablet by mouth every twenty-four hoursVitamin B-12 1000 MCG 1 tablet Orally Once a day Not-Taking Problems Active Problems Problem ClassificationProblemDateDocumented DateEpisodic/ChronicAcute and unspecified renal failure (17 sources)Injury of kidney; Translations: [Acute kidney failure, unspecified] Onset: 223949-52-3107AlilfwhdAdepk cerebrovascular disease (20 sources)Cerebrovascular accident due to thrombus of left middle cerebral artery; Translations: [Cerebral infarction due to thrombosis of left middle cerebral artery]Onset: 819227-21-4387JpymhynXtmqx cerebrovascular disease (1 source)Acute cerebrovascular diseaseOnset: 72-01-3668Maorsupeqwfvaz/social admission (20 sources)Other reduced mobility; Translations: [Impaired mobility and activities of daily living]Onset: 498491-68-2030YqhnupxtNidbfhw disorders (20 sources)Mixed anxiety and depressive disorder; Translations: [Anxiety disorder, unspecified]Onset: 247168-96-1045VfcptvbTzcocjl dysrhythmias (20 sources)Bradycardia; Translations: [Bradycardia, unspecified]11-21-2021 EpisodicChronic kidney disease (1 source)Chronic kidney disease; Translations: [CHRONIC KIDNEY DISEASE STAGE 3A]Onset: 14-80-5336Jcqunodmpm associated with dizziness or vertigo (20 sources)Dizziness and giddiness; Translations: [Dizziness and giddiness] Onset: 288289-45-0842QukxjrurAppppbnlsq heart failure; nonhypertensive (20 sources)Heart failure, unspecified; Translations: [Heart failure]Onset: 709131-40-2335KjcxjiqWkdhnsid atherosclerosis and other heart disease (20 sources)Atherosclerotic heart disease of [place] coronary artery without angina pectoris; Translations: [Coronary atherosclerosis]Onset: 03-23-2020 ChronicDeficiency and other anemia (1 source)Iron deficiency anemia secondary to blood loss (chronic); Translations: [IRON DEFIC ANEMIA SEC BLD LOSS CHRN]Onset: 07-20-7788Elbnteh Deficiency and other anemia (16 sources)Anemia; Translations: [Anemia, unspecified]91-18-6827Jijwqnzu Delirium, dementia, and amnestic and other cognitive disorders (6 sources)Progressive aphasia; 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]11-74-3223Ufumqqf Disorders of lipid metabolism (20 sources)Hyperlipidemia; Translations: [Hyperlipidemia, unspecified]Onset: 463060-45-3907NjospclVknpdajuv hypertension (20 sources)Hypertensive disorder; Translations: [Essential (primary) hypertension]Onset: 06-22-2009 Resolved: 918538-72-4255YweltfaVwbco and electrolyte disorders (2 sources)Hypokalemia; Translations: [Dehydration]Onset: 50-81-2763Igmbrrpm Genitourinary symptoms and ill-defined conditions (20 sources)Incontinence without sensory awareness; Translations: [Overflow incontinence of urine]Onset: 46-53-0783IhvzxntMoqnntmlkadsy symptoms and ill- defined conditions (20 sources)Dysuria; Translations: [Dysuria]Onset: 2023 Resolved: 14-72-6959EunrrsawDscgwzyw; including migraine (20 sources)Migraine with aura; Translations: [Migraine with aura, not intractable, without status migrainosus]Onset: 610498-25-5305Blxqnfm Headache; including migraine (20 sources)Pduhemim49-06-6172IufauiyrGspjzdak; including migraine (1 source)Headache; including migraine; Translations: [HEADACHE UNSPECIFIED] Onset: 10-92-8960Hzgkh valve disorders (1 source)Nonrheumatic mitral (valve) insufficiency; Translations: [NONRHEUMATIC MITRAL INSUFFICIENCY]Onset: 62-48-1437BojuthxFpjehpxkdjiu with complications and secondary hypertension (1 source)Hypertensive chronic kidney disease with stage 1 through stage 4 chronic kidney disease, or unspecified chronic kidney disease; Translations: [HTN CKD W/STAGE 1-4 CKD/UNS CKD]Onset: 50-49-5057IikxufeSouenadvtouwp and screening for infectious disease (3 sources)Contact with and (suspected) exposure to other viral communicable diseases; Translations: [Contact with or exposure to other viral diseases] 71-96-0409WfmrktzxSeclzkawjtwe injury (18 sources)History of traumatic brain injury; Translations: [Personal history of traumatic brain injury]83-20-9811YkbzrmgdVezy effects of cerebrovascular disease (20 sources)History of cerebrovascular accident with residual deficit; Translations: [Unspecified sequelae of cerebral infarction]Onset: 02-20-2023 50-94-4868KdbxcnyYigxuahioghcu mental health disorders (20 sources)Psychophysiologic insomnia; Translations: [Psychophysiologic insomnia]Onset: 191247-89-6900WyxvqnpRunr disorders (20 sources)Major depressive disorder, single episode, unspecified; Translations: [Recurrent major depression in full remission]Onset: 08-01-2021 Resolved: 915182-51-1550OnqqczwRtbspylzmrm deficiencies (20 sources)Deficiency of other specified B group vitamins; Translations: [Iron deficiency]Onset: 92-77-1052BchgyiwqCkesaodex or stenosis of precerebral arteries (20 sources)Bilateral stenosis of carotid arteries; Translations: [Occlusion and stenosis of bilateral carotid arteries]Onset: 02-24-2020 Resolved: 21-22-4851LjconhnQrgcvilvpbldyn (20 sources)Arthritis of hand; Translations: [Primary osteoarthritis, right hand]Onset: 04-09-2007 Resolved: 75-31-1649OzuwfhsIyxlb aftercare (2 sources)Drug therapy finding; Translations: [Other oysterman (current) drug therapy]09-29-0063NhsadjyaYzyjb and ill-defined cerebrovascular disease (14 sources)Cerebrovascular disease; Translations: [Cerebrovascular disease, unspecified]ChronicOther and ill-defined cerebrovascular disease (1 source)Cerebrovascular disease, unspecified; Translations: [CEREBROVASCULAR DISEASE UNSPECIFIED]Onset: 21-60-6714JprvcfxNnxmk circulatory disease (20 sources)History of cardiovascular surgery; Translations: [Presence of other cardiac implants and grafts]Onset: 781945-70-8909AigzqqpDutkt circulatory disease (7 sources)Stented artery; Translations: [Presence of other vascular implants and grafts]76-42-0693LykzvibUhxfx circulatory disease (2 sources)Presence of other vascular implants and grafts; Translations: [Other postprocedural status]40-04-1763TnvkyadJwlrr circulatory disease (12 sources)History of cerebrovascular accident due to ischemia; Translations: [Personal history of transient ischemic attack (TIA), and cerebral 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]48-10-7997FkugoiefRkznj connective tissue disease (1 source)Presence of right artificial knee joint; Translations: [PRESENCE RT ARTIFICIAL KNEE JOINT]Onset: 55-87-1770ZistfsmHluym connective tissue disease (1 source)Presence of unspecified artificial knee joint; Translations: [PRESENCE UNS ARTIFICIAL KNEE JOINT]Onset: 29-33-9652SoavewuJbthi connective tissue disease (4 sources)Other specified soft tissue disorders; Translations: [OTHER SPEC SOFT TISSUE DISORDERS]Onset: 77-24-7556VrxljaofPagza connective tissue disease (20 sources)Spasm; Translations: [Other muscle spasm]Onset: 501137-74-4132 EpisodicOther diseases of bladder and urethra (3 sources)Urethral stricture; Translations: [Unspecified urethral stricture, female]Onset: 25-18-3742MhtzrnlnNimcs gastrointestinal disorders (16 sources)Dysphagia; Translations: [Dysphagia, unspecified]14-91-6418Ndppcgxz Other gastrointestinal disorders (20 sources)Oropharyngeal dysphagia; Translations: [Dysphagia, oropharyngeal phase]Onset: 831556-70-6070HgwixmljEuert hereditary and degenerative nervous system conditions (16 sources)Dystonia; Translations: [Dystonia, unspecified]36-92-1716Ybqgnxr Other lower respiratory disease (2 sources)Shortness of breath; Translations: [Shortness of breath]Onset: 13-85-1266NkpawhewLaziz nervous system disorders (1 source)Difficulty in walking, not elsewhere classified; Translations: [DIFFICULTY IN WALKING NEC]Onset: 91-39-9528ZmtqwoyYxkgp nervous system disorders (1 source)Aphasia; Translations: [APHASIA]Onset: 41-23-8463HtkdfdpOzxyh nervous system disorders (8 sources)Expressive dysphasia; Translations: [Aphasia]22-63-7693NdctnmeKqekj nervous system disorders (1 source)Aphasia; Translations: [Aphasia]23-38-0763DcztdgkGkunv nervous system disorders (20 sources)White matter disease; Translations: [White matter disease, unspecified]Onset: 42-96-6998BeoadckhImysd nervous system disorders (20 sources)Dysarthria; Translations: [Dysarthria and anarthria]Onset: 589079-98-1612MqyzdtiaCyibv nervous system disorders (1 source)Unspecified abnormalities of gait and mobility; Translations: [Unspecified abnormalities of gait and mobility]Onset: 81-25-5683CbkwfdgdLhcot nervous system disorders (19 sources)Ataxia; Translations: [Ataxia, unspecified]04-47-3342ZgcihticCqhct nervous system disorders (11 sources)Abnormal gait; Translations: [Unsteadiness on feet]06-07-2024 EpisodicOther screening for suspected conditions (not mental disorders or infectious disease) (20 sources)Patient encounter status; Translations: [Encounter for screening for malignant neoplasm of colon]Onset: 889709-39-3702HfnlpvwpOmrez skin disorders (1 source)Localized swelling, mass and lump, left lower limb; Translations: [LOC SWELL MASS LUMP LT LOWER LIMB]Onset: 70-79-7310WkqbmnrePybhlfi cyst (7 sources)Unspecified ovarian cyst, unspecified side; Translations: [Unspecified ovarian cyst, right side]Onset: 52-41-5257OvriljfpQrnngfajcy and visceral atherosclerosis (20 sources)Peripheral vascular disease, unspecified; Translations: [Peripheral vascular disease]Onset: 318903-72-3358DjfynswGkohgeyk codes; unclassified (4 sources)Insomnia; Translations: [Other insomnia]99-65-2717IiteqhyDildigey codes; unclassified (2 sources)Obstructive sleep apnea syndrome; Translations: [Obstructive sleep apnea (adult) (pediatric)]19-68-1031FwjakjyIyfdehlm codes; unclassified (16 sources)Confusional state; Translations: [Disorientation, unspecified] 78-53-1516SxxwdmpzXbgkwire codes; unclassified (15 sources)Altered mental status; Translations: [Altered mental status, unspecified]55-02-0033NudskjhlGgwfsfhh codes; unclassified (4 sources)Edema of lower extremity; Translations: [Localized edema]02-20-2024 EpisodicResidual codes; unclassified (1 source)Localized edema; Translations: [Edema]64-26-4061OdnbxxrmAglafaen codes; unclassified (10 sources)Memory impairment; Translations: [Other amnesia]70-25-9545Rgdftgui Residual codes; unclassified (2 sources)Staring; Translations: [Transient alteration of awareness]06-15-2024 EpisodicUnclassified (3 sources)COUGH, UNSPECIFIED; Translations: [COUGH, UNSPECIFIED]Onset: 69-55-4978Tgokyfnitopx (1 source)CHRN KIDNEY DISEASE STG 3 UNSP; Translations: [CHRN KIDNEY DISEASE STG 3 UNSP]Onset: 10-14-9717Tiwnwzk tract infections (20 sources)Urinary tract infection, site not specified; Translations: [Urinary tract infectious disease]Onset: 11-28-2021 Resolved: 18-28-8752UhlzroxtYxkujmrn veins of lower extremity (18 sources)Varicose veins of lower extremity; Translations: [Varicose veins of bilateral lower extremities with other complications]Onset: 28-07-9094Zbbaubac Viral infection (2 sources)COVID-19; Translations: [COVID-19]Onset: 09-07-2021 Resolved: 09-22-2021 Past or Other Problems Problem ClassificationProblemDateDocumented DateEpisodic/ChronicBacterial infection; unspecified site (8 sources)Infection due to ESBL bacteriaOnset: 080704-01-9529Qdfcqmcz Comment on above:ESBL E coli urineCalculus of urinary tract (1 source)Personal history of urinary calculi; Translations: [PERSONAL HISTORY OF URINARY CALCULI]Onset: 06-13-2992BxoouucwTgwcijukrg and other anemia (4 sources)Anemia, unspecified; Translations: [ANEMIA UNSPECIFIED]Onset: 39-23-8404WhfhbovhX Codes: Fall (2 sources)Fall on same level, unspecified, initial encounter; Translations: [Fall (on) (from) unspecified stairs and steps, initial encounter]Onset: 36-62-8906IwqbliqfAfprfocn of upper limb (6 sources)Other fractures of lower end of left radius, subsequent encounter for closed fracture with routine healing; Translations: [Unspecified fracture of the lower end of left radius, initial encounter for closed fracture]Onset: 04-03-2021 Resolved: 12-45-0806CdbeyklpZyezniot of upper limb (3 sources)Nondisplaced fracture of proximal phalanx of right middle finger, initial encounter for closed fractureOnset: 07-12-2021 Resolved: 62-28-0585YcuhduuiKiglrspqhjpghkxc hemorrhage (3 sources)Gastrointestinal hemorrhage, unspecified; Translations: [Melena] Onset: 45-95-8775WrlynnvkTsqxwvm and fatigue (5 sources)Weakness; Translations: [WEAKNESS]Onset: 72-59-0586WiumrebyHliu disorders (20 sources)Mood disordersOnset: 08-25-2018 Resolved: Nausea and vomiting (1 source)Nausea with vomiting, unspecifiedOnset: 09-22-2021 Resolved: 00-19-6633VwwgaggtPqobu aftercare (1 source)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; Translations: [SENIOR LIVING CURRENT USE OF ASPIRIN]Onset: 25-37-7557YqoljsmaHskwd aftercare (1 source)Other retirement (current) drug therapy; Translations: [OTH SENIOR LIVING CURRENT DRUG THERAPY]Onset: 91-93-5512AfbnjuldPnwqa aftercare (1 source)Encounter for follow-up examination after completed treatment for conditions other than malignant neoplasm; Translations: [ENC F/U EX AFTR CMPL TX NOT MAL SU]Onset: 81-48-3493YyotsgkiPvtnf aftercare (1 source)shelter (current) use of antithrombotics/antiplatelets; 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: [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/ANTIPLATLETS]Onset: 88-20-0255Crpigurt Other aftercare (20 sources)Post-discharge follow-up; Translations: [Encounter for follow-up examination after completed treatment for conditions other than malignant neoplasm]Onset: 03-06-2023 Resolved: [id number] circulatory disease (1 source)Personal history of transient ischemic attack (TIA), and cerebral 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; Translations: [PERS HX TIA AND CI NO RESID DEFICIT]Onset: 59-58-3516QiomqvguRkeiz connective tissue disease (3 sources)Pain in right handOnset: 07-12-2021 Resolved: 26-07-0274WlfxptiiRcbpn ear and sense organ disorders (20 sources)Acute otitis externa; Translations: [Diffuse otitis externa, bilateral]Onset: 2024 Resolved: [id number] gastrointestinal disorders (1 source)Bariatric surgery status; Translations: [BARIATRIC SURGERY STATUS] Onset: 07-65-0132UhjatjtyPyjvz gastrointestinal disorders (2 sources)Dysphagia, oral phase; Translations: [Dysphagia, oral phase]Onset: 28-00-0713PgbpnaeiNesbi gastrointestinal disorders (1 source)Dysphagia, oropharyngeal phase; Translations: [Dysphagia, oropharyngeal phase]Onset: 14-72-3601ExjcsdarSxnws injuries and conditions due to external causes (1 source)History of falling; Translations: [HISTORY OF FALLING]Onset: 39-28-4180BkvzqabeGflzj lower respiratory disease (1 source)Other nonspecific abnormal finding of lung field; Translations: [OTH NONSPECIFIC ABN FIND LNG FIELD]Onset: 63-37-4989ZyhfiqumKdoou nervous system disorders (1 source)Functional gait abnormality; Translations: [Unspecified abnormalities of gait and mobility]26-12-4224AsmzqzmqOypui non-traumatic joint disorders (3 sources)Pain in left wrist; Translations: [PAIN IN LEFT WRIST]Onset: 81-75-5132VuyohpeaVazfj upper respiratory disease (2 sources)Pain in throat; Translations: [Pain in throat]Onset: 09-11-2023 EpisodicOther upper respiratory infections (20 sources)Acute upper respiratory infection; Translations: [Acute upper respiratory infection, unspecified]Onset: 02-20-2023 Resolved: [id number] codes; unclassified (5 sources)Other specified postprocedural statesOnset: 05-03-2021 Resolved: 43-31-8106IkodazrkEmtqlbbu codes; unclassified (7 sources)Altered mental status, unspecified; Translations: [Altered mental status]Onset: 917181-13-9273FoyodbqmOqflsypf codes; unclassified (1 source)Acquired absence of other specified parts of digestive tract; Translations: [ACQ ABSENCE OTH PART DIGESTV TRACT]Onset: 61-38-3499Pgryvkmn Residual codes; unclassified (1 source)Acquired absence of both cervix and uterus; Translations: [ACQUIRED ABSENCE BOTH CERVIX AND UTERUS]Onset: 69-74-7802WxuuhebdMavqywqs codes; unclassified (1 source)Sleep disorder, unspecified; Translations: [SLEEP DISORDER UNSPECIFIED]Onset: 64-64-9312IgwscoraLzcrhali codes; unclassified (3 sources)Disorientation, unspecified; Translations: [DISORIENTATION UNSPECIFIED]Onset: 64-11-7730WonxqnncStzkurmx codes; unclassified (1 source)Pain, unspecified; Translations: [Pain, unspecified]Onset: 02-16-2023 EpisodicScreening and history of mental health and substance abuse codes (1 source)Personal history of nicotine dependence; Translations: [PERSONAL HISTORY OF NICOTINE DEPEND]Onset: 56-12-8943XarqcjuoSmxffhezgqy; intervertebral disc disorders; other back problems (1 source)Cervicalgia; Translations: [CERVICALGIA]Onset: 59-59-2890Jnhruekj Unclassified (1 source)COUGH, UNSPECIFIED; Translations: [COUGH, UNSPECIFIED]Onset: 43-34-5211Remkbuhvydwn (20 sources)Onset: Results Test NameValueInterpretationReference RangeFacilityC Urineon 14-55-7227Yymngdrw identified Cx Nom (U)Microbiology PROCEDURE: Urine Culture [R1] SOURCE: U Random BODY SITE: COLLECTED DATE/TIME: 11/17/2024 14:57 EDT RECEIVED DATE/TIME: 11/18/2024 17:21 EDT START DATE/TIME: 11/18/2024 17:21 EDT FREE TEXT SOURCE: MITRA Quintero APRN, MITRA Quintero APRN, Carmen Morales X FINAL REPORTS Final Report [] Verified Date/Time: 11/20/2024 10:56 EDT <10,000 cfu/ml Mixed skin contaminants Performing Locations R1: This test was performed at: [facility], [address] [place] [address], [facility] , , DjxfdvVcbiguProMedica Defiance Regional HospitalComment on above:Performed By: #### [id number] #### [facility] [address] [place], [place] [address]Urology Office/Clinic Noteon [id number] Office/Clinic NoteUrology Office/Clinic Note Chief Complaint UTI symptoms HPI Staff Ozzie is a 74yr old female presenting for possible UTI. Last seen in office on 10/08/2024 for f/u to botox. *OTC supplements, Estrace cream 3x/weekly, Methenamine and Vitamin UTI. prev dx: Incontinence w/o sensory Awareness, Recurrent UTI, Unspecified urethral stricture Today's UA resulted: Trace-FLORA Pt states having some pain and burning while urinating and foul smell. Pt denies visual blood in urine. Pt states the Botox has helped significantly. History of Present Illness Tests reviewed: reviewed UA I have reviewed the previous health record information and history for this patient from Carmen Quintero NP. I have reviewed and verified the staff HPI to be accurate for this encounter. Review of Systems PHQ Score Initial Depression Screen Score: 0 SCORE ROS - Provider Constitutional: denies weight loss, denies hot flashes. Eyes: denies eye problems. Gastrointestinal: denies nausea, denies vomiting. Cardiovascular: denies chest pain or angina. Integumentary: no dryness Musculoskeletal: denies musculoskeletal symptoms. ENMT: denies otolaryngeal symptoms. Respiratory: no shortness of breath. Heme/Lymph: denies easy bleeding tendency, denies easy bruising tendency. Psychiatric: no confusion, no anxiety. Genitourinary: See HPI. Physical Exam Vitals & Measurements T: 37.0 ???C(Tympanic) BP: 118/72 HT: 63 in HT: 160 cm WT: 156.969 lb WT: 71.2 kg BMI: 27.81 General Appearance: alert , no acute distress, well nourished, well developed female. Assessment/Plan Last seen 09/07/24, present today for possible UTI. PRW pt BBS 18 (18) 1. Recurrent UTI (N39.0: Urinary tract infection, [...] w/ Bactrim x 14 days (currently taking) 05/05/24 - 10k E. coli, tx w/ doxy 06/15/24 - neg 06/30/24 - 10k E. coli, tx w/ Bactrim 5d s/p cysto/UD 08/18/24 - improved dysuria UA today neg for blood, trace leuks. main symptom dysuria - does not change much w/ abx. Does have lightly worsening dysuria today, foulodor. Shares she tends to drink tea or juice w/o much water intake. Recommended pt. to increase fluid intake to ten to twelve 16oz bottles a day; preferably water, clear pop, and sugar free lemonade. She does admit that she's having swallowing issues, which sounds like she is seeing [employer] for. Does mentionpossible EGD in future. She is using Estrace cream every other day and taking methenamine/OTC supplements/Vit C wo changes. Admits to only taking methenamine 1g QD, d/t difficulty swallowing. -Increase fluid intake, avoid bladder irritants -ER for fever, NV, severe flank pain, inability to urinate -cont methenamine, vit C, estrace, OTC supplements -call for symptomatic UTI -UCX sent today, tx if pos 2. Incontinence without sensory awareness (N39.42: Incontinence without sensory awareness) S/p Botox 100u 09/22/24 D/c trospium 60 mg QD at prior OV. Pt mostly wears briefs at night, was using 4 at the time of prior OV, was using 20+ previously. Still very pleased w/ results PVR 09/07/24 - 19 ml Follow up scheduled for 02/01/25 3. Unspecified urethral stricture, female (N35.92: Unspecified urethral stricture, female) S/p cysto/UD 08/18/24 Pt notices improvement of emptying and dysuria Follow-up No qualifying data available Patient Education IZeinab, personally scribed for MITRA Schreiber APRN on 11/17/2024 14:44:04. . Documentation recorded by the evie Downs accurately reflects the services(s) I performed and decisions made by me. Authenticated by Carmen Quintero APRN, FNP-C on 11/17/2024 14:52:36. Portions of this record may have been created with voice recognition artificial intelligence software, specifically [employer], [employer] and or [employer]. Substitutions may have occurred due to the inherent limitations of voice recognition and artificial intelligence software. Problem List/Past Medical History Ongoing Dysuria ESBL (extended spectrum beta-lactamase) producing bacteria infection Headache Incontinence without sensory awareness Recurrent UTI Stroke Unspecified urethral stricture, female UTI (urinary tract infection) White matter disease Historical Hypertension Procedure/Surgical History Injection of substance into bladder wall (09/22/2024), Colonoscopy (05/12/2021), Breast surgery, Gastric bypass, Hysterectomy, Knee replacement. Medications amLODIPine 2.5 mg Tab aspirin 81 mg Chew Tab, Chewed, Daily BACLOFEN (more content not included)...[facility] HospitalComment on above:Result Comment: Electronically Signed By: MITRA Quintero APRN, [place] X\.br\Date and Time Signed: 11/17/24 14:52 EDT\.br\Electronically Co-Signed By: Zeinab Downs\.br\Date and Time Co-Signed: 11/17/24 14:44 EDTUrology Office/Clinic Noteon [id number] Office/Clinic NoteUrology Office/Clinic Note Chief Complaint follow up botox HPI Staff 74 year old female presents for f.u to Botox w. PVR. Prev dx: recurrent UTI, incontinence w.o sensory awareness, s/p: 09/22/24 botox 100u *OTC supplements, Estrace cream 3x/weekly, Methenamine and Vitamin C BBS: Denies dysuria, some vaginal burning, denies visible blood in urine. Denies feeling incomplete emptying. History of Present Illness I have reviewed and verified the staff HPI to be accurate for this encounter. Portions of this record may have been created with voice recognition artificial intelligence software, specifically [employer], [employer] and or [employer]. Substitutions may have occurred due to the inherent limitations of voice recognition and artificial intelligence software. Review of Systems PHQ Score Initial Depression Screen Score: 0 SCORE Physical Exam Vitals & Measurements HR: 81(Peripheral) BP: 98/71 HT: 63 in HT: 160 cm WT: 156.748 lb WT: 71.1 kg BMI: 27.77 General: Well developed, well nourished, in no acute distress. Assessment/Plan PRW pt 1. Incontinence without sensory awareness (N39.42: Incontinence without sensory awareness) s/p Botox 100u 09/22/24 Taking trospium 60 mg QD, advised pt to trial coming off of medication Pt is down to 4 briefs daily, was using 20+ prior very happy w/ results PVR today 19 ml -stop trospium, if worsening urinary sx, can restart -f/u 4 mos to reeval sxs 2. Recurrent UTI (N39.0: Urinary tract infection, site [...] w/ Bactrim x 14 days (currently taking) 05/05/24 - 10k E. coli, tx w/ doxy 06/15/24 - neg 06/30/24 - 10k E. coli, tx w/ Bactrim 5d KUB 04/01/24 - neg main symptom dysuria - does not change much w/ abx s/p cysto/UD 08/18/24 - improved dysuria UA today w/o blood or infection Increase fluid intake, avoid bladder irritants ER for fever, NV, severe flank pain, inability to urinate -cont methenamine, vit C, estrace, OTC supplements -call for symptomatic UTI 3. Unspecified urethral stricture, female (N35.92: Unspecified urethral stricture, female) s/p cysto/UD 08/18/24 pt notices improvement of emptying and denies UTI sxs since then Orders: 56446 Measure Post Void residual urine and/or bladder capacity by US- non-imaging Urnls Dip Stick Auto w/o Microscopy POC 96778 Follow-up With When Contact Information [employer] TRAIN CONTROL TECHNICIAN, [employer]GETABLE [employer]-C, Carmen X, FAM, URL Additional Instructions: 4 mos Patient Education Urinary Incontinence Urinary Tract Infection, Adult Problem List/Past Medical History Ongoing Dysuria ESBL (extended spectrum beta-lactamase) producing bacteria infection Headache Hypertension Incontinence without sensory awareness Recurrent UTI Stroke UTI (urinary tract infection) White matter disease Historical No qualifying data Procedure/Surgical History Injection of substance into bladder wall (09/22/2024), Colonoscopy (05/12/2021), Breast surgery, Gastric bypass, Hysterectomy, Knee replacement. Medications amLODIPine 2.5 mg Tab aspirin 81 mg Chew Tab, Chewed, Daily BACLOFEN 20MG TAB, 0 ClonazePAM 0.5 mg Tab Estrace 0.1 mg/g Cream, See Instructions, 6 refills FeroSul 325 mg oral tablet, Oral, TID Lasix 20 mg Tab, 10 mg= 0.5 tab(s), Oral, Daily methenamine hippurate 1 g oral tablet, 1 gm= 1 tab(s), Oral, BID, 11 refills metoprolol 25 mg ER Tab, Oral, Daily Potassium Chloride (Rtp-Wyod-Xsr M10) 10 mEq oral tablet, extended release quetiapine 50 mg oral tablet rosuvastatin 20 mg Tab topiramate 50 mg Tab Vitamin C, See Instructions Allergies penicillin Social History Alcohol Never., 10/07/2024 Substance Abuse Never., 10/07/2024 Tobacco Never (less than 100 in lifetime) Tobacco Use:. Never Smokeless Tobacco Use:., 10/08/2024 Family History Primary malignant neoplasm of bone: Father. Primary malignant neoplasm of brain: Mother. Primary malignant neoplasm of female breast: Mother. Immunizations Vaccine Date Status influenza virus vaccine, inactivated 11/09/2023 Recorded RSV vaccine preF3, recombinant 11/24/2022 Recorded pneumococcal 20-valent conjugate vaccine 11/24/2022 Recorded influenza virus vaccine, inactivated 11/24/2022 Recorded influenza virus vaccine, inactivated 01/20/2022 Recorded influenza virus vaccine, inactivated 11/26/2020 Recorded SARS-CoV-2 (COVID-19) Ad26 vaccine 06/11/2020 Recorded influenza virus vaccine, inactivated 12/09/2019 Recorded influenza virus vaccine, inactivated 12/22/2018 Recorded Td(adult) unspecified formulation 03/25/2001 Recorded influenza virus va (more content not included)...[facility] HospitalComment on above:Result Comment: Electronically Signed By: MITRA Quintero APRN, [place] X\.br\Date and Time Signed: 10/08/24 09:45 EDTMain OR Intraoperative Recordon [id number] OR Intraoperative RecordMain OR Intraoperative Record IntraOp Document Type FTURO Summary Primary Physician: VASQUEZ VIDES, Alexandr Isaac Finalized Date/Time: 09/22/24 09:53:39 Pt. Name: OZZIE GIFFORD /Sex: 1950 Female Med Rec #: [id number] Physician: Alexandr OVALLE MD Financial #: [id number] Pt. Type: O Room/Bed: / Admit/Disch: 09/22/24 09:00:56 - Institution: Case Times FTURO Entry 1 Patient Times In Room 09/22/24 09:29:00 Out Room 09/22/24 09:50:00 Procedure Times Start 09/22/24 09:42:00 Stop 09/22/24 09:45:00 Anesthesia Times Last Modified By: Eulalio BATISTA, Reina Matthew 09/22/24 09:45:52 General Comments: BOTOX LOT#: [id number], EXP DATE: 11/2026 -Elizabeth LINK RN Case Attendance FTURO Entry 1 Entry 2 Entry 3 Case Attendee VASQUEZ VIDES, Alexandr Link RN, Reina Stahl CST, Onelia Matthew Role Performed Surgeon - Primary Hotel Attendant - Primary Scrub - Primary Time In 09/22/24 09:29:00 09/22/24 09:29:00 09/22/24 09:29:00 Time Out 09/22/24 09:50:00 09/22/24 09:50:00 09/22/24 09:50:00 Procedure CYSTOSCOPY LOCAL BOTOX CYSTOSCOPY LOCAL BOTOX CYSTOSCOPY LOCAL BOTOX INJECTION(.) INJECTION(.) INJECTION(.) Comments Last Modified By: Eulalio BATISTA, Reina Link RN, Reina Link RN, Reina Matthew 09/22/24 Maki P 09/22/24 Maki P 09/22/24 09:45:55 09:45:55 09:45:55 Surgical Procedures FTURO Entry 1 Procedure Description Procedure CYSTOSCOPY LOCAL BOTOX Modifiers . INJECTION Surgeon Description CYSTOSCOPY 100 UNITS BOTOX Primary Procedure Yes Primary Surgeon Alexandr OVALLE MD 09/22/24 09:42:00 Stop 09/22/24 09:45:00 Anesthesia Type Local Surgical Service Urology Wound Class 2 - Clean-Contaminated Last Modified By: Eulalio BATISTA, Reina Matthew 09/22/24 09:45:55 General Case Data FTURO Pre-Care Text: Classifies surgical wound, implements aseptic technique, initiates traffic control Entry 1 Case Information OR URO 1 FT Case Level None Wound Class 2 - Clean-Contaminated Specialty Urology Preop Diagnosis URGE INCONTINENCE Postop Same As Preop Yes Postop Diagnosis URGE INCONTINENCE Outcomes Met? Yes Last Modified By: Reina Link RN 09/22/24 09:33:14 Post-Care Text: The patient is free from signs and symptoms of infection EU IntraOp - FTURO Pre-Care Text: Implements protective measures prior to operative or invasive procedure, confirms identity before the operative or invasive procedure, verifies operative procedure, surgical site, and laterality Entry 1 EU Perioperative Protocols Procedure(s) CYSTOSCOPY LOCAL BOTOX Patient Identity Birthday, ID Band INJECTION(.) Verified (select at Check, Patient least 2): Participation Consents / H and P H&P, Surgery/Procedure Operative Site N/A Verified Consent Marking Verified Surgical Site Yes Laterality Verified n/a Verified Procedure Verified Yes Correct Patient Yes Position Verified Availability Equipment, Medication Time Out VASQUEZ VIDES, Alexandr Isaac, Verified (If Participants Reina Link RN Applicable) Favio Pepe CST, Onelia Carrasco Time Out Complete 09/22/24 09:41:00 Allergies Reviewed? Yes Allergies Reviewed Self/Patient With Body Position High Lithotomy Prep Area PERINEAL AREA Prep Agents Betadine Solution Skin. Condition Unable to Visualize Description partially clothed and draped Additional None Specimens Collected Vitals - EU Blood Pressure 144/75 Pulse 83 bpm Respirations 18 br/min SPO2 98 % I&O - EU Outcomes Met? Yes Last Modified By: Reina Link RN 09/22/24 09:42:22 Post-Care Text: The patient is free from signs and symptoms of injury caused by extraneous objects Sign Out FTURO Entry 1 Before Patient Leaves OR Nurse verbally Yes Nurse verbally Yes confirms with the confirms with the team the name of team that the procedure(s) instrument, sponge, recorded and needle counts are correct (or N/A) Nurse verbally n/a Nurse verbally n/a confirms with the confirms with the team how the team whether there specimen is labeled are any equipment (including patient problems to be name), if applicable addressed Sign Out Complete 09/22/24 09:45:00 Last Modified By: Reina Link RN 09/22/24 09:45:54 Case Comments Finalized By: Reina Link RN Document Signatures Signed By: Reina Link RN 09/22/24 09:53NoSt. Elizabeth HospitalMain OR Preoperative Recordon [id number] OR Preoperative RecordMain OR Preoperative Record Holding Area Document Type FTURO Summary Primary Physician: Alexandr OVALLE MD Finalized Date/Time: 09/22/24 09:40:20 Pt. Name: OZZIE GIFFORD Odette Corrales./Sex: 1950 Female Med Rec #: [id number] Physician: Alexandr OVALLE MD Financial #: [id number] Pt. Type: O Room/Bed: / Admit/Disch: 09/22/24 09:00:56 - Institution: Case Times Holding FTURO Pre-Care Text: Verifies consent for planned procedure, identifies individual values and wishes concerning care, includes family members in perioperative teaching Secures patient's records' belongings, and valuables, maintains patient's dignity and privacy, and maintains patient confidentiality Entry 1 In Holding 09/22/24 09:23:00 Outcomes Met? Yes Last Modified By: Wendi Sesay LPN 09/22/24 09:31:34 Post-Care Text: The patient participates in decisions affecting his or her perioperative plan of care The patient'sright to privacy is maintained Surgery Checklist FTURO Entry 1 Patient Birthday, ID Band Procedure Surgical Consent, With Identification: Check, Patient Verification: Patient Participation NPO after Midnight: n/a Personal Items: Glasses Limitations: up ad lei Complaints of Pain: No Skin Integrity Intact, [place], Warm, & Dry Vitals - EU Blood Pressure 144/75 Pulse 83 bpm Respirations 18 br/min SPO2 98 % Additional Other (See Comment) Specimens Comment ua dip Specimens Collected Last Modified By: Wendi Sesay LPN 09/22/24 09:35:12 Finalized By: Wendi Sesay LPN Document Signatures Signed By: Wendi Sesay LPN 09/22/24 09:40NoSt. Elizabeth HospitalOperative Reporton [id number] ReportOperative Report Patient: OZZIE GIFFORD Age: 74 years Sex: Female : 1950 Associated Diagnoses: None Author: Alexandr OVALLE MD Procedure Operative Information Details: Date/ Time: 09/22/2024 09:48:00. Pre-Op Dx: Incont/Urge - N39.41. Post-Op Dx: Same. Anesthesia Type: Local. Procedure: Local Cystoscopy with botox injection. Complications: None. Risks/Benefits/Informed Consent: Surgical risks, benefits, details of the procedure have been explained to the patient, Full informed consent has been obtained. Intraoperative Information Prepped: Patient is brought back to the endoscopy suite, Male Prep, Female Prep (Patient is placed in modified dorso/lithotomy position, 5 cc 2% Xylocaine Jelly is placed per Urethra, Straight cath inserted to obtain urine specimen, 60 cc 2% Xylocaine liquid inserted into bladder, 5 additional cc 2% Xylocaine Jelly is placed per Urethra, Patient in sitting position for 20 min dwell), Urine Specimen Results Negative for infection, Patient prepped in the usual fashion with Betadine solution, After waiting several minutes the Cystoscope is introduced. Procedure: The trigone was identified and evaluated, 20 template injection sites were identified, The bladder was instilled with enough saline to achieve adequate visualization for the injections, The needle was inserted approximately 2 mm into the detrusor spaced approximately 1 cm apart, A total of 20 injections with a 0.5 ml volume was delivered at each site for a total of 100 units of Botox. The Urethra is: Tight. The Bladder is: Normal, Trabeculated None (0). The ureteral orifices: Show efflux of clear urine. Devices Implanted: None. Removal: Cystoscope is removed, The patient tolerated it well. Postoperative Information Discharge: Patient is discharged home with antibiotic coverage, Follow up arranged.[facility] HospitalComment on above:Result Comment: Electronically Signed By: Alexandr OVALLE MD\.br\Date and Time Signed: 09/22/24 09:49 EDTC Urineon [id number] identified Cx Nom (U)Microbiology PROCEDURE: Urine Culture [R1] SOURCE: U Random BODY SITE: COLLECTED DATE/TIME: 09/15/2024 09:00 EDT RECEIVED DATE/TIME: 09/15/2024 16:49 EDT START DATE/TIME: 09/15/2024 16:49 EDT FREE TEXT SOURCE: VASQUEZ VIDES, Alexandr OVALLE MD, Alexandr Isaac FINAL REPORTS Final Report [] Verified Date/Time: 09/17/2024 07:20 EDT 75,000 cfu/ml Escherichia coli SUSCEPTIBILITY RESULTS LEGEND: S=Susceptible, N/R=Not Reported, Blank=Data not available, or drug not advisable or tested, I=Intermediate, ESBL=Extended spectrum beta-lactamase, R=Resistant, TFG=Thymidine-dependent strain, ANA=Beta-lactamase positive, QUINTIN=mcg/m;(mg/L), S*=Predicted susceptible interp, R*=Predicted resistant interp EC Antibiotic QUINTIN Dilutn QUINTIN Interp Ampicillin <=8 S Ampicillin/ <=8/4 S Sulbactam Cefazolin <=2 S Cefepime <=2 S Ceftazidime/ <=8 S Avibactam Ceftriaxone <=1 S Cefuroxime <=4 S Ciprofloxacin <=0.25 S Ertapenem <=0.5 S Gentamicin <=2 S Levofloxacin <=0.5 S Meropenem <=1 S Nitrofurantoin <=32 S Piperacillin/ <=8 S Tazobactam Tetracycline <=4 S Tobramycin <=2 S Trimethoprim/ <=2/38 S Sulfa Performing Locations R1: This test was performed at: [facility], [address] [place] [address], [facility] , , GantarFxzvtgProMedica Defiance Regional HospitalComment on above:Performed By: #### [id number] #### [facility] [address] [place] [address] [id number] ECHO DOPPLER COMPLETEon [id number] Ville [id number] Cardiology Report Signed Patient: OZZIE GIFFORD MR#: [id number] : 1950 Acct:[id number] Age/Sex: 74 / F ADM Date: 08/20/24 Loc: CARD Attending Dr: RUBEN SALVADOR Ordering Physician: RUBEN SALVADOR Date of Service: 08/20/24 Procedure(s): CA echo doppler complete Accession Number(s): [id number] cc: Cindy Colaldo DYE WEIGHER HELPER; RUBEN SALVADOR Patient Name: OZZIE GIFFORD MR#: [id number] : 1950 Exam Date: 08/20/2024 Ordering Doctor: DR RUBEN SALVADOR M.D. ECHOCARDIOGRAM REPORT PROCEDURE: CA ECHO DOPPLER COMPLETE INDICATIONS: Shortness of breath, coronary artery disease COMPARISON: None. DESCRIPTION: COMPLETE ECHOCARDIOGRAM Real-time transthoracic echocardiography with 2D, M-mode, spectral and color flow Doppler performed. QUALITY: Technical quality was good. LEFT VENTRICLE: Normal chamber size. Mild concentric left ventricular hypertrophy. Normal left ventricle systolic function without wall motion abnormalities, calculated left ventricular ejection fraction is 62%. LV EF: Normal left ventricular ejection fraction, (>55%). DIASTOLIC: Normal diastolic function. ATRIAL SEPTUM: Visually appears intact. LEFT ATRIUM: Normal chamber size. RIGHT ATRIUM: Normal chamber size. RIGHT VENTRICLE: Normal chamber size. Normal right ventricular systolic function. TRICUSPID VALVE: Normal mobility and thickness. No stenosis with mild regurgitation. Doppler studies reveal mildly (35-45) elevated right sided pressures.RVSP 37 mmHg MITRAL VALVE: Normal mobility and thickness. No evidence of mitral valve stenosis. Mild mitral annular calcification. Mild mitral regurgitation. AORTIC VALVE: Normal trileaflet appearance. Normal leaflet mobility. No evidence of aortic valve stenosis. No aortic regurgitation. AORTIC ROOT: Normal diameter and appearance. PULMONIC VALVE: Normal thickness and mobility. No stenosis. No regurgitation. PERICARDIUM: No evidence of pericardial effusion. IVC: Collapes with inspirations. IVC is normal in size. PLEURA: CONCLUSION: Mild concentric left ventricular hypertrophy Normal left ventricle systolic function without wall motion abnormalities, ejection fraction 62% Normal left ventricle diastolic function Normal right ventricle size and systolic function Mildly elevated right-sided pressure, RVSP 37 mmHg Mild mitral regurgitation Mild tricuspid regurgitation Adult Echocardiography Procedure Report Left Ventricle LVEDD (3.7 - 5.6 cm): 3.51 cm LVESD (2.2 - 4.0 cm): 2.79 cm LVIVS thickness (0.6 - 1.2 cm): 1.29 cm LVPW thickness (0.5 - 1.0 cm): 1.08 cm e': 0.07 m/s E - e': 12.14 LVOT Max Gradient: 2.44 mm[Hg] LVOT Area (cm2): 0.78 m/s Peak Velocity (LVOT): 0.78 m/s Mean Velocity (LVOT): 0.60 m/s LVOT Diameter 1.97 cm Left Ventricular Ejection Fraction: 62.35 % Left Atrium LA Volume Index (2D A2C): 32.06 ml/m2 Left Atrium Systolic Dimension: 3.84 cm Mitral Valve MV E to A Ratio: 1.05 MV Max Gradient: MV Mean Gradient: Mitral Valve A-Wave Peak Velocity: 0.85 m/s Mitral Valve E-Wave Peak Velocity: 0.90 m/s Cardiovascular Orifice Area: Right Ventricle RV Internal Diastolic Dimension: Aorta AO Root Diam: 2.97 cm Ascending Ao Diam: Aortic Valve AoV Area (Peak Shen): 1.73 cm2, 1.73 cm2 AoV Area (VTI): 1.78 cm2, 1.78 cm2 Deceleration Upson: Pressure Half-Time: Peak Velocity(Antegrade Flow): 1.37 m/s Peak Gradient(Antegrade Flow): 7.52 mm[Hg] Mean Velocity(Antegrade Flow): 1.02 m/s Mean Gradient(Antegrade Flow): 4.60 mm[Hg] Velocity Time Integral: 37.24 cm Tricuspid Valve Peak Velocity (Regurgitant Flow): 2.49 m/s, 2.93 m/s Peak Velocity: Pulmonic Valve Mean Gradient: Mean Velocity: Peak Velocity: 0.78 m/s Peak Gradient: 2. (more content not included)...[facility]HR[facility]iology, Radiologist, - 08/21/2024 [place] [address] Cardiology Report Signed Patient: OZZIE GIFFORD MR#: [id number] : 1950 Acct:[id number] Age/Sex: 74 / F ADM Date: 08/20/24 Loc: CARD Attending Dr: RUBEN SALVADOR Ordering Physician: RUBEN SALVADOR Date of Service: 08/20/24 Procedure(s): CA echo doppler complete Accession Number(s): [id number] cc: Cindy Collado DYE WEIGHER HELPER; RUBEN SALVADOR Patient Name: OZZIE GIFFORD MR#: [id number] : 1950 Exam Date: 08/20/2024 Ordering Doctor: DR RUBEN SALVADOR M.D. ECHOCARDIOGRAM REPORT PROCEDURE: CA ECHO DOPPLER COMPLETE INDICATIONS: Shortness of breath, coronary artery disease COMPARISON: None. DESCRIPTION: COMPLETE ECHOCARDIOGRAM Real-time transthoracic echocardiography with 2D, M-mode, spectral and color flow Doppler performed. QUALITY: Technical quality was good. LEFT VENTRICLE: Normal chamber size. Mild concentric left ventricular hypertrophy. Normal left ventricle systolic function without wall motion abnormalities, calculated left ventricular ejection fraction is 62%. LV EF: Normal left ventricular ejection fraction, (>55%). DIASTOLIC: Normal diastolic function. ATRIAL SEPTUM: Visually appears intact. LEFT ATRIUM: Normal chamber size. RIGHT ATRIUM: Normal chamber size. RIGHT VENTRICLE: Normal chamber size. Normal right ventricular systolic function. TRICUSPID VALVE: Normal mobility and thickness. No stenosis with mild regurgitation. Doppler studies reveal mildly (35-45) elevated right sided pressures.RVSP 37 mmHg MITRAL VALVE: Normal mobility and thickness. No evidence of mitral valve stenosis. Mild mitral annular calcification. Mild mitral regurgitation. AORTIC VALVE: Normal trileaflet appearance. Normal leaflet mobility. No evidence of aortic valve stenosis. No aortic regurgitation. AORTIC ROOT: Normal diameter and appearance. PULMONIC VALVE: Normal thickness and mobility. No stenosis. No regurgitation. PERICARDIUM: No evidence of pericardial effusion. IVC: Collapes with inspirations. IVC is normal in size. PLEURA: CONCLUSION: Mild concentric left ventricular hypertrophy Normal left ventricle systolic function without wall motion abnormalities, ejection fraction 62% Normal left ventricle diastolic function Normal right ventricle size and systolic function Mildly elevated right-sided pressure, RVSP 37 mmHg Mild mitral regurgitation Mild tricuspid regurgitation Adult Echocardiography Procedure Report Left Ventricle LVEDD (3.7 - 5.6 cm): 3.51 cm LVESD (2.2 - 4.0 cm): 2.79 cm LVIVS thickness (0.6 - 1.2 cm): 1.29 cm LVPW thickness (0.5 - 1.0 cm): 1.08 cm e': 0.07 m/s E - e': 12.14 LVOT Max Gradient: 2.44 mm[Hg] LVOT Area (cm2): 0.78 m/s Peak Velocity (LVOT): 0.78 m/s Mean Velocity (LVOT): 0.60 m/s LVOT Diameter 1.97 cm Left Ventricular Ejection Fraction: 62.35 % Left Atrium LA Volume Index (2D A2C): 32.06 ml/m2 Left Atrium Systolic Dimension: 3.84 cm Mitral Valve MV E to A Ratio: 1.05 MV Max Gradient: MV Mean Gradient: Mitral Valve A-Wave Peak Velocity: 0.85 m/s Mitral Valve E-Wave Peak Velocity: 0.90 m/s Cardiovascular Orifice Area: Right Ventricle RV Internal Diastolic Dimension: Aorta AO Root Diam: 2.97 cm Ascending Ao Diam: Aortic Valve AoV Area (Peak Shen): 1.73 cm2, 1.73 cm2 AoV Area (VTI): 1.78 cm2, 1.78 cm2 Deceleration Upson: Pressure Half-Time: Peak Velocity(Antegrade Flow): 1.37 m/s Peak Gradient(Antegrade Flow): 7.52 mm[Hg] Mean Velocity(Antegrade Flow): 1.02 m/s Mean Gradient(Antegrade Flow): 4.60 mm[Hg] Velocity Time Integral: 37.24 cm Tricuspid Valve Peak Velocity (Regurgitant Flow): 2.49 m/s, 2.93 m/s Peak Velocity: Pulmonic Valve Mean Gradient: Mean Velocity: Peak Velocity: 0.78 m/s Peak Gradient: 2.41 mm[Hg] Right Atrium Right Atrium Systolic Pressure: 17.67 ml, 17.67 ml Dictated by: Sanchez Delgado MD on 08/21/2024 at 18:22 Approved by: Sanchez Delgado MD on 08/21/2024 at 18:29 Dictated By: Sanchez Delgado M.D. Signed By: 08/21/241828 DD/ 28 TD/TT: Adult Services Librarian: [facility]ITALLuis Fernando [facility] HospitalRadiology Study observation (narrative)[facility] CodoonCA ECHO DOPPLER COMPLETEOrdered By: Radiologist Radiology on [id number] Codoon Work Phone: H&P Updateon 08-18-2024H&P UpdateH&P Update Patient: OZZIE WALKER Age: 74 years Sex: Female : 1950 Associated Diagnoses: None Author: VASQUEZ VIDES, Alexandr Isaac Basic Information Pre-Op Diagnosis: Recurrent UTI's, Incontinence without awareness Proposed Surgery: Cystoscopy with urethral dilation I have reviewed the History and Physical and examined the patient for changes. Based upon my assessment, the patient may proceed with the planned procedure. Health Status Procedure history: Colonoscopy (procedure) (083516593) on 05/12/2021 at 70 Years. Knee replacement ([id number]). Breast surgery (0500064709). Hysterectomy (343322252). Gastric bypass (8359239243). Social History Social & Psychosocial Habits Tobacco 07/16/2024 Tobacco Use: Never (less than 100 in l Smokeless tobacco use: Never Concerns about tobacco use in household: No Smoking Cessation Yes . Allergies: Allergic Reactions (Selected) Severity Not Documented Penicillin- No reactions were documented., Allergies (1) Active Severity Reaction penicillin None Documented Current medications: (Selected) Prescriptions Prescribed Cipro 500 mg Tab: 500 mg = 1 tab(s), Oral, Daily, Take 1 tablet the day before the procedure and 1 tablet after the procedure, # 2 tab(s), Refills(s) 0, Pharmacy: [facility], 160, cm,07/16/24 10:45:00 EDT, Height/Length Dosing, 61, kg, 07/16/24 10:45:0... Estrace 0.1 mg/g Cream: See Instructions, 42.5 gm, Refill(s) 6, apply a pea- sized amount vaginally and around the urethra nightly x 3 weeks, then 3x per week thereafter, [facility], 160, cm, 04/01/24 8:56:00 EST, Height/Length Dosing, 60, kg, 04/01/24 8:56:00... Myrbetriq 50 mg oral tablet, extended release: 50 mg = 1 tab(s), Oral, Daily, X 30 day(s), # 30 tab(s), Refills(s) 11, Pharmacy: [facility], 160, cm, 04/14/24 12:55:00 EST, Height/Length Dosing, 61, kg, 04/14/24 12:55:00 EST, Weight Dosing methenamine hippurate 1 g oral tablet: 1 gm = 1 tab(s), Oral, BID, X 30 day(s), # 60 tab(s), Refills(s) 11, Pharmacy: [facility], 160, cm, 04/14/24 12:55:00 EST, Height/Length Dosing,61, kg, 04/14/24 12:55:00 EST, Weight Dosing vibegron 75 mg oral tablet: 75 mg = 1 tab(s), Oral, Daily, # 30 tab(s), Refills(s) 11, Pharmacy: [facility], 160, cm, 04/14/24 12:55:00 EST, Height/Length Dosing, 61, kg, 04/14/24 12:55:00 EST, Weight Dosing Documented Medications Documented BACLOFEN 20MG TAB: BACLOFEN 20MG TAB ClonazePAM 0.5 mg Tab: Refills(s) 0 FeroSul 325 mg oral tablet: mg tab(s), Oral, TID, Refills(s) 0 Lasix 20 mg Tab: 10 mg = 0.5 tab(s), Oral, Daily Potassium Chloride (Npd-Rano-Orm M10) 10 mEq oral tablet, extended release: Refills(s) 0 Vitamin C: See Instructions, Refills(s) 0 amLODIPine 2.5 mg Tab: Refills(s) 0 aspirin 81 mg Chew Tab: mg tab(s), Chewed, Daily, Refills(s) 0 metoprolol 25 mg ER Tab: mg tab(s), Oral, Daily, Refills(s) 0 quetiapine 50 mg oral tablet: Refills(s) 0 rosuvastatin 20 mg Tab: Refills(s) 0 topiramate 50 mg Tab: Refills(s) 0, Home Medications (17) Active amLODIPine 2.5 mg Tab aspirin 81 mg Chew Tab , Chewed, Daily BACLOFEN 20MG TAB 0 Cipro 500 mg Tab 500 mg = 1 tab(s), Oral, Daily ClonazePAM 0.5 mg Tab Estrace 0.1 mg/g Cream See Instructions FeroSul 325 mg oral tablet , Oral, TID Lasix 20 mg Tab 10 mg = 0.5 tab(s), Oral, Daily methenamine hippurate 1 g oral tablet 1 gm = 1 tab(s), Oral, BID metoprolol 25 mg ER Tab , Oral, Daily Myrbetriq 50 mg oral tablet, extended release 50 mg = 1 tab(s), Oral, Daily Potassium Chloride (Tnq-Rzjy-Rsj M10) 10 mEq oral tablet, extended release quetiapine 50 mg oral tablet rosuvastatin 20 mg Tab topiramate 50 mg Tab vibegron 75 mg oral tablet 75 mg = 1 tab(s), Oral, Daily Vitamin C See Instructions Problem list: All Problems Stroke / SNOMED CT 653883034 / Confirmed Headache / SNOMED CT 96870758 / Confirmed Hypertension / SNOMED CT 3772921071 / Confirmed Dysuria / SNOMED CT 71858036 / Confirmed Incontinence without sensory awareness / SNOMED CT 8457878568 / Confirmed White matter disease / SNOMED CT 3874192886 / Confirmed UTI (urinary tract infection) / SNOMED CT 039897977 / Confirmed Recurrent UTI / SNOMED CT 008366409 / Confirmed ESBL (extended spectrum beta-lactamase) producing bacteria infection / SNOMED CT 2375073380 / Confirmed ESBL E coli urine Canceled: Mixed incontinence / SNOMED CT 88430052, Active Problems (9) Dysuria ESBL (extended spectrum beta-lactamase) producing bacteria infection Headache Hypertension Incontinence without sensory awareness Recurrent UTI Stroke UTI (urinary tract infection) White matter diseaseNoSt. Elizabeth HospitalComment on above:Result Comment: Electronically Signed By: Alexandr OVALLE MD\.br\Date and Time Signed: 08/18/24 07:59 EDTMain OR Intraoperative Recordon [id number] OR Intraoperative RecordMain OR Intraoperative Record IntraOp Document Type FTURO Summary Primary Physician: Alexandr OVALLE MD Finalized Date/Time: 08/18/24 09:25:34 Pt. Name: DENISEOZZIE D.O.B./Sex: 1950 Female Med Rec #: [id number] Physician: Alexandr OVALLE MD Financial #: [id number] Pt. Type: O Room/Bed: / Admit/Disch: 08/18/24 08:24:19 - Institution: Case Times FTURO Entry 1 Patient Times In Room 08/18/24 09:00:00 Out Room 08/18/24 09:23:00 Procedure Times Start 08/18/24 09:05:00 Stop 08/18/24 09:10:00 Anesthesia Times Last Modified By: Florencio Lockwood Ii 08/18/24 09:25:32 Case Attendance FTURO Entry 1 Entry 2 Entry 3 Case Attendee Alexandr OVALLE MD SALES REPRESENTATIVE GRAPHIC ART, Florencio Zavala Ii Role Performed Surgeon - Primary Scrub - Primary Hotel Attendant - Primary Time In 08/18/24 09:00:00 08/18/24 09:00:00 08/18/24 09:00:00 Time Out 08/18/24 09:15:00 08/18/24 09:15:00 08/18/24 09:15:00 Procedure CYSTOSCOPY LOCAL WITH CYSTOSCOPY LOCAL WITH CYSTOSCOPY LOCAL WITH URETHRAL DILATION(., .) URETHRAL DILATION(., .) URETHRAL DILATION(., .) Comments Last Modified By: Florencio Lockwood Ii, Alfons Ii F Letrondo, Alfons Ii F 08/18/24 09:10:13 08/18/24 09:10:13 08/18/24 09:10:13 Surgical Procedures FTURO Entry 1 Procedure Description Procedure CYSTOSCOPY LOCAL WITH Modifiers ., . URETHRAL DILATION Surgeon Description CYSTO UD Primary Procedure Yes Primary Surgeon Alexandr OVALLE MD Start 08/18/24 09:05:00 Stop 08/18/24 09:10:00 Anesthesia Type Local Surgical Service Urology Wound Class 2 - Clean-Contaminated Last Modified By: Florencio Lockwood Ii 08/18/24 09:10:14 General Case Data FTURO Pre-Care Text: Classifies surgical wound, implements aseptic technique, initiates traffic control Entry 1 Case Information OR URO 1 FT Case Level None Wound Class 2 - Clean-Contaminated Specialty Urology Preop Diagnosis RECURRENT UTIS, Postop Same As Preop Yes INCONTINENCE WITHOUT AWARENESS Postop Diagnosis RECURRENT UTIS, Outcomes Met? Yes INCONTINENCE WITHOUT AWARENESS Last Modified By: Florencio Lockwood Ii 08/18/24 09:00:14 Post-Care Text: The patient is free from signs and symptoms of infection EU IntraOp - FTURO Pre-Care Text: Implements protective measures prior to operative or invasive procedure, confirms identity before the operative or invasive procedure, verifies operative procedure, surgical site, and laterality Entry 1 EU Perioperative Protocols Procedure(s) CYSTOSCOPY LOCAL WITH Patient Identity Birthday, ID Band URETHRAL DILATION(., .) Verified (select at Check, Patient least 2): Participation Consents / H and P H&P, Surgery/Procedure Operative Site N/A Verified Consent Marking Verified Surgical Site Yes Laterality Verified n/a Verified Procedure Verified Yes Correct Patient Yes Position Verified Availability Equipment, Medication Time Out Alexandr OVALLE MD, Verified (If Participants Favio DRAPER, Onelia Applicable) Fabián Carrasco Alfons Ii F Time Out Complete 08/18/24 09:02:00 Allergies Reviewed? Yes Allergies Reviewed Self/Patient With Body Position Frog Legged Prep Area PERINEUM Prep Agents Betadine Solution Skin. Condition Intact, [place], Warm, & Description UNCHANGED Dry Additional None Specimens Collected Vitals - EU Blood Pressure 114/78 Pulse 75 bpm Respirations 18 br/min SPO2 97 % I&O - EU Outcomes Met? Yes Last Modified By: Florencio Lockwood Ii 08/18/24 09:06:32 Post-Care Text: The patient is free from signs and symptoms of injury caused by extraneous objects Sign Out FTURO Entry 1 Before Patient Leaves OR Nurse verbally Yes Nurse verbally Yes confirms with the confirms with the team the name of team that the procedure(s) instrument, sponge, recorded and needle counts are correct (or N/A) Nurse verbally n/a Nurse verbally Yes confirms with the confirms with the team how the team whether there specimen is labeled are any equipment (including patient problems to be name), if applicable addressed Sign Out Complete 08/18/24 09:10:00 Last Modified By: Florencio Lockwood Ii 08/18/24 09:10:20 Case Comments Finalized By: Florencio Lockwood Ii Document Signatures Signed By: Florencio Lockwood Ii 08/18/24 09:11 Florencio Lockwood Ii 08/18/24 09:25 Unfinalized History Date/Time Username Reason for Unfinalizing Freetext Reason for Unfinalizing 08/18/24 09:20 [id number] Modifying Existing DataNormChildren's Hospital of [facility] Main OR Preoperative Recordon [id number] OR Preoperative RecordMain OR Preoperative Record Holding Area Document Type FTURO Summary Primary Physician: Alexandr OVALLE MD Finalized Date/Time: 08/18/24 08:55:13 Pt. Name: DENISEOZZIE D.O.B./Sex: 1950 Female Med Rec #: [id number] Physician: Alexandr OVALLE MD Financial #: [id number] Pt. Type: O Room/Bed: / Admit/Disch: 08/18/24 08:24:19 - Institution: Case Times Holding FTURO Pre-Care Text: Verifies consent for planned procedure, identifies individual values and wishes concerning care, includes family members in perioperative teaching Secures patient's records' belongings, and valuables, maintains patient's dignity and privacy, and maintains patient confidentiality Entry 1 In Holding 08/18/24 08:50:00 Outcomes Met? Yes Last Modified By: Joaquín BATISTA, Gabby ZULETA 08/18/24 08:50:31 Post-Care Text: The patient participates in decisions affecting his or her perioperative plan of care The patient'sright to privacy is maintained Surgery Checklist FTURO Entry 1 Patient Birthday, ID Band Procedure History and Physical, Identification: Check, Patient Verification: Surgical Consent, With Participation Patient NPO after Midnight: n/a Personal Items: Jewelry Personal Items necklace, clothes Limitations: walks with cane Comment: Skin Integrity Unable to Visualize Vitals - EU Blood Pressure 114/78 Pulse 78 bpm Respirations 18 br/min SPO2 RN Reviewed Yes Last Modified By: MERLYN Yanes RN, Ruthann 08/18/24 08:55:12 Finalized By: MERLYN Yanes RN, Ruthann Document Signatures Signed By: MERLYN Yanes RN, Ruthann 08/18/24 08:55NormalFostoria City Hospital Operative Reporton [id number] ReportOperative Report Patient: OZZIE WALKER Age: 74 years Sex: Female : 1950 Associated Diagnoses: None Author: Alexandr OVALLE MD Procedure Operative Information Details: Date/ Time: 08/18/2024 09:20:00. 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 Post-Op Dx: Same. Anesthesia Type: Local. Procedure: Local Cystoscopy with Urethral Dilation. Complications: None. Risks/Benefits/Informed Consent: Surgical risks, benefits, details of the procedure have been explained to the patient, Full informed consent has been obtained. Intraoperative Information Prepped: Patient is brought back to the endoscopy suite, Patient is placed in modified dorso/lithotomy position, Patient prepped in the usual fashion with Betadine solution, 2% Xylocaine Jelly is placed per Urethra, After waiting several minutes the Cystoscope is introduced. The Urethra is: Tight, Moderate atrophic vaginitis. The Bladder is: Trabeculated (Mild (1), No bladder tumors. , No AMANDA. No bladder prolapse. Moderate rectocele.). The ureteral orifices: Show efflux of clear urine. The Urethra was dilated to: 30 Surinamese w/ sounds, Due to atrophic vaginitis, the urethra bled from the dilation.. Devices Implanted: None. Removal: Cystoscope is removed, The patient tolerated it well. Postoperative Information Discharge: Patient is discharged home with antibiotic coverage, Follow up arranged. We will put her through urodynamics. 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..[facility] HospitalComment on above:Result Comment: Electronically Signed By: Alexandr OVALLE MD\Date and Time Signed: 08/18/24 09:26 EDTNM KARSTEN PERF SPECT REST STRon [id number] [address] Nuclear Medicine Report Signed Patient: OZZIE GIFFORD MR#: [id number] : 1950 Acct:[id number] Age/Sex: 74 / F ADM Date: 08/10/24 Loc: NM Attending Dr: RUBEN SALVADOR Ordering Physician: RUBEN SALVADOR Date of Service: 08/10/24 Procedure(s): NM karsten perf SPECT rest str Accession Number(s): [id number] cc: Cindy Collado DYE WEIGHER HELPER; RUBEN SALVADOR Patient Name: OZZIE GIFFORD MR#: [id number] : 1950 Exam Date: 08/10/2024 Ordering Doctor: DR RUBEN SALVADOR M.D. RADIOLOGY REPORT PROCEDURE: NM KARSTEN [...] the study was pending [facility] attending [facility] . For more details please see separate [...] Signed By: 08/11/24 1352 DD/ 1351 TD/TT: Adult Services Librarian:ERROLadiolMonica cervantes, - 08/11/2024 [place] [address] Nuclear Medicine Report Signed Patient: OZZIE GIFFORD MR#: [id number] : 1950 Acct:[id number] Age/Sex: 74 / F ADM Date: 08/10/24 Loc: NM Attending Dr: RUBEN SALVADOR Ordering Physician: RUBEN SALVADOR Date of Service: 08/10/24 Procedure(s): NM karsten perf SPECT rest str Accession Number(s): [id number] cc: Cindy Collado DYE WEIGHER HELPER; RUBEN SALVADOR Patient Name: OZZIE GIFFORD MR#: [id number] : 1950 Exam Date: 08/10/2024 Ordering Doctor: DR RUBEN SALVADOR M.D. RADIOLOGY REPORT PROCEDURE: NM KARSTEN [...] the study was pending per attending physician [facility] . For more details please see separate [...] Signed By: 08/11/24 1352 DD/ 1351 TD/TT: Adult Services Librarian: [facility] HealthcareRadiology Study observation (narrative)[facility] CenterNM KARSTEN PERF SPECT REST STROrdered By: Radiologist Radiology on [id number] [facility] Work Phone: Office Visiton [id number] Ozzie Gifford 1950 F Date Provider Department Center 07/22/2024 RUBEN MARCANO [facility] Family History Problem Relation Age of Onset Hypertension Mother Hypertension Father Heart attack Brother Family Status - Relation Status Age at Mother Father Brother Level of Service:58061 MI OFFICE/OUTPATIENT ESTABLISHED MOD [facility]DM [facility] Ambulatory Visit SummaryAmbulatory Visit Summary OZZIE WALKER :1950 Visit Date:07/16/2024 Ambulatory Visit Instructions Your [...] mg ER Tab) potassium chloride (Potassium Chloride (Dif-Gguz-Hlc M10) 10 mEq oral tablet, extended release) [...] Follow-Up Appointments Saturday 3:00 PM EDT With: CORRIE EDEN, BERNICE Carias Where: [facility] [address] [place] [address]- Medications What How Much When Why Instructions New mirabegron (Myrbetriq 50 mg oral tablet, extended release) 1 Tablets By Mouth Every day Duration: 30 Days Refills: 11 Pickup at [facility] New vibegron (vibegron 75 mg oral tablet) 1 Tablets By Mouth Every day Refills: 11 Pickup at [facility] Unchanged amlodipine (amLODIPine 2.5 mg Tab) [...] Tablets By Mouth Every day Contact prescribing physicianif questions or concerns Unchanged methenamine (methenamine hippurate [...] or concerns Unchanged potassium chloride (Potassium Chloride (Uho-Ahkt-Lwm M10) 10 mEq oral tablet, extended release) Contact prescribing physician if questions or concerns Unchanged quetiapine (quetiapine 50 mg oral tablet) Contact prescribing physician if questions or concerns Unchanged rosuvastatin (rosuvastatin 20 mg Tab) Contact prescribing physician if questions or concerns Unchanged topiramate (topiramate 50 mg Tab) Contact prescribing physician if questions or concerns Pharmacy Information [facility]: [address] [place], [place] [id number] [phone] What How Much When Why Comments Stop Taking trospium (trospium 60 mg oral capsule, extended release) 1 Capsules By Mouth Once a day(in the morning) Urinary incontinence without sensory awareness [...] you for choosing us for your care. [facility] HospitalUrology Office/Clinic Noteon [id number] Office/Clinic NoteUrology Office/Clinic Note Chief Complaint recheck UTI HPI Staff 73yr old female pt here for f/u to her UTI per pt Previous Dx: recurrent uti, incontinence without sensory awareness *Trospium 60mg qAM, estrogen cream q2 weeks, D-mannose, cranberry PVR: 01/28/24 - 19mL 04/01/24 - 24mL PVR today was 50 Pt states her biggest concern is the incontinence and she states she goes through 15-17 depends. ptstates when she sits upin the morning she [...] been obtained. Will order Local anesthesia. Ordered: [address] Measure Post Void residual urine and/or bladder capacity by US- non-imaging Body Mass Index (BMI) documented 3008F Current tobacco non-user 1036F Depression Screening Negative 3352F E&M of Est. Patient Moderate 30-39 Min 70533 Influenza immunization status assessed 1030F Medication list [...] Urnls Dip Stick Auto w/o Microscopy POC 31403 2. 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 Very bothersome. No improvement w Trospium. Will add Beta-3, either Myrbetriq or Gemtesa, whichever is covered/more affordable. Risks/benefits/side effects discussed. PVR 50ml Ordered: 03871 Measure Post Void residual urine and/or bladder capacity by US- non-imaging Body Mass Index (BMI) documented 3008F Current tobacco non-user 1036F Depression Screening Negative 3352F E&M of Est. Patient Moderate 30-39 Min 46623 Influenza immunization status assessed 1030F Medication list [...] Urnls Dip Stick Auto w/o Microscopy POC 14593 Orders: ciprofloxacin, 500 mg = 1 tab(s), Oral, Daily, Take 1 tablet the day before the procedure and 1 tablet after the procedure, # 2 tab(s), Refills(s) 0, Pharmacy: [facility], 160, cm, 07/16/24 10:45:00 EDT, Height/Length Dosing, 61, kg, 07/16/24 10:45:0... mirabegron, 50 mg = 1 tab(s), Oral, Daily, X 30 day(s), # 30 tab(s), Refills(s) 11, Pharmacy: [facility], 160, cm, 04/14/24 12:55:00 EST, Height/Length Dosing, 61, kg, 04/14/24 12:55:00 EST, Weight Dosing vibegron, 75 mg = 1 tab(s), Oral, Daily, # 30 tab(s), Refills(s) 11, Pharmacy: [facility], 160, cm, 04/14/24 12:55:00 EST, Height/Length Dosing, (more content not included)...[facility] HospitalComment on above:Result Comment: Electronically Signed By: BERNICE CLEMENTE PA-C\Date and Time Signed: 07/16/2517:43 EDTC Urineon 77-91-4924Etgtwmav identified Cx Nom (U)Microbiology PROCEDURE: Urine Culture [R1] SOURCE: U Random [...] or tested, I=Intermediate, ESBL=Extended spectrum beta-lactamase, R=Resistant, TFG=Thymidine-dependent strain, ANA=Beta-lactamase positive, QUINTIN=mcg/m;(mg/L), S*=Predicted susceptible interp, [...] Locations R1: This test was performed at: [facility], [address] [place] [address], [facility] , , EufwusEatnvwProMedica Defiance Regional HospitalComment on above:Performed By: #### [id number] #### [facility] [address] [place] [address] CERVICAL SPINE WO/W JEREMYon 62-09-8[address] [address] Magnetic Resonance Report Signed Patient: OZZIE GIFFORD MR#: [id number] : 1950 Acct:[id number] Age/Sex: 74 / F ADM Date: 06/24/24 Loc: LAB Attending Dr: Jameson Mcleod NP Ordering Physician: Jameson Mcleod NP Date of Service: 06/24/24 Procedure(s): MR cervical spine wo/w con Accession Number(s): [id number] cc: Cindy Collado NP; Jameson Mcleod NP [place] [address] Patient Name: OZZIE GIFFORD MRN: [facility]:[id number] date: 1950 Sex: F Assigned Patient Location: LAB Current Patient Location: LAB Accession/Order Number: [id number] Exam Date: 06/24/2024 11:38 Report Date: 06/24/2024 11:50 At the request of: JAMESON MCLEOD NP Procedure: MR cervical spine wo/w [...] Sung M.D. 06/24/2024 11:50 AM Dictation Location: [place] [address] Electronically authenticated by: [id number] Y Date: 06/24/2024 11:50 Dictated By: Bambi Sung M.D. Signed By: 06/24/24 1152 DD/ 1150 TD/TT: Adult Services Librarian:TBHRadiology, Radiologist, - 06/24/2024 [place] [address] Magnetic Resonance Report Signed Patient: OZZIE GIFFORD MR#: [id number] : 1950 Acct:[id number] Age/Sex: 74 / F ADM Date: 06/24/24 Loc: LAB Attending Dr: Jameson Mcleod NP Ordering Physician: Jameson Mcleod NP Date of Service: 06/24/24 Procedure(s): MR cervical spine wo/w con Accession Number(s): [id number] cc: Cindy Collado DYE WEIGHER HELPER; Jameson Mcleod NP [facility] [place] [address] Patient Name: OZZIE GIFFORD MRN: [facility]:[id number] date: 1950 Sex: F Assigned Patient Location: LAB Current Patient Location: LAB Accession/Order Number: [id number] Exam Date: 06/24/2024 11:38 Report Date: 06/24/2024 11:50 At the request of: JAMESON MCLEOD NP Procedure: MR cervical spine wo/w [...] Sung M.D. 06/24/2024 11:50 AM Dictation Location: [place] [address] Electronically authenticated by: [id number] Y Date: 06/24/2024 11:50 Dictated By: Bambi Sung M.D. Signed By: 06/24/24 1152 DD/ 1150 TD/TT: Adult Services Librarian: OLGA HealthcareRadiology Study observation (narrative)[facility] CERVICAL SPINE WO/W CONOrdered By: Radiologist Radiology on 44-23-2600KCIBCameron Regional Medical Center Work Phone: MRI HEAD/BRAIN WO/W CONTRon 48-41-3021[place] [address] Magnetic Resonance Report Signed Patient: OZZIE GIFFORD MR#: [id number] : 1950 Acct:[id number] Age/Sex: 74 / F ADM Date: 06/24/24 Loc: LAB Attending Dr: Jameson Mcleod DYE WEIGHER HELPER Ordering Physician: Jameson Mcleod NP Date of Service: 06/24/24 Procedure(s): MR head/brain wo/w con Accession Number(s): [id number] cc: Cindy Collado NP; Jameson Mcleod NP [place] [address] Patient Name: OZZIE GIFFORD MRN: [facility]:[id number] date: 1950 Sex: F Assigned Patient Location: LAB Current Patient Location: LAB Accession/Order Number: [id number] Exam Date: 06/24/2024 13:40 Report Date: 06/24/2024 13:48 At the request of: JAMESON MCLEOD NP Procedure: MR head/brain wo/w con [...] Sung M.D. 06/24/2024 1:48 PM Dictation Location: [place] [address] Electronically authenticated by: [id number] Y Date: 06/24/2024 13:48 Dictated By: Bambi Sung M.D. Signed By: 06/24/24 1350 DD/ 1348 TD/TT: Adult Services Librarian:TBHRadiology, Radiologist, - 06/24/2024 [place] [address] Magnetic Resonance Report Signed Patient: OZZIE GIFFORD MR#: [id number] : 1950 Acct:[id number] Age/Sex: 74 / F ADM Date: 06/24/24 Loc: LAB Attending Dr: Jameson Mcleod NP Ordering Physician: Jameson Mcleod NP Date of Service: 06/24/24 Procedure(s): MR head/brain wo/w con Accession Number(s): [id number] cc: Cindy Collado DYE WEIGHER HELPER; Jameson Mcleod NP [facility] [place] [address] Patient Name: OZZIE GIFFORD MRN: [facility]:[id number] date: 1950 Sex: F Assigned Patient Location: LAB Current Patient Location: LAB Accession/Order Number: [id number] Exam Date: 06/24/2024 13:40 Report Date: 06/24/2024 13:48 At the request of: JAMESON MCLEOD NP Procedure: MR head/brain wo/w con [...] Sung M.D. 06/24/2024 1:48 PM Dictation Location: [place] [address] Electronically authenticated by: [id number] Y Date: 06/24/2024 13:48 Dictated By: Bambi Sung M.D. Signed By: 06/24/24 1350 DD/ 1348 TD/TT: Adult Services Librarian: K[facility]MORE HOSPITALLuis Fernando [facility] HospitalRadiology Study observation (narrative)[facility] CenterMRI HEAD/BRAIN WO/W CONTROrdered By: Radiologist Radiology on 02-05-6862[facility] Work Phone: TBH CREATININEon 79-59-2655Skabtkgrsh [Mass/Vol]0.68 mg/dL0.55 - 1.02 mg/dLNOME HealthcareGFR/1.73 sq M.predicted CKD-EPI (S/P/Bld) [Vol rate/Area]>60>=60 mL/min/1.73m 2NOMS HealthcareTBH EGFR-NON AF LAO>60 >=60 mL/min/1.73m 2NOMS HealthcareCLINISYNCNOMS HealthcareALL CBC WITH AUTO DIFF on 88-32-2769EUMSPFGNF ABSOLUTE AUTO0.1NOMS HealthcareBasophils/100 WBC (Bld)0.9 %0.2 - 2.0 %[facility] HealthcareEosinophils/100 WBC (Bld)4.3 %0.9 - 7.0 %[facility] Regional Medical CenterErythrocyte distribution width (RBC) [Ratio]13.3 %11.0 - 15.0 %[facility] Medical CenterHematocrit (Bld) [Volume fraction]41.9 %36.0 - 48.0 %[facility] Hemoglobin (Bld) [Mass/Vol]14.2 g/dL12.0 - 16.0 g/dLCameron Regional Medical CenterIMMATURE GRANULOCYTES ABS AUTO0.02NOMid [facility] CenterImmature granulocytes/100 WBC (Bld)0.3 % 0.0 - 0.5 %[facility] Medical CenterInterpretation and review of laboratory results AbnormalCameron Regional Medical CenterLYMPHOCYTES ABSOLUTE AUTO1.9[facility] Lymphocytes/100 WBC (Bld)25.5 %20.5 - 60.0 %[facility] ServicesH (RBC) [Entitic mass]30.7 pg26.7 - 34.0 pgSaint Francis Hospital & Health ServicesHC (RBC) [Mass/Vol]33.9 g/dL29.9 - 35.2 g/dLSaint Francis Hospital & Health ServicesV (RBC) [Entitic vol]90.5 fL81.0 - 99.0 fLCameron Regional Medical CenterMONOCYTES ABSOLUTE AUTO0.6NOMid [facility] CenterMonocytes/100 WBC (Bld)8.2 % 1.7 - 12.0 %[facility] CenterNEUTROPHILS ABSOLUTE AUTO4.5[facility] Neutrophils/100 WBC (Bld)60.8 %43.0 - 75.0 %[facility] Medical CenterPlatelet mean volume (Bld) [Entitic vol]10.7 fL9.5 - 13.5 fLCameron Regional Medical CenterTBH EO #0.3NOMS [facility] TBH [id number] Rivers Psychiatric Hospital RBC4.63NOMS [facility] WBC7.5NOMid [facility] CLINISYNCCameron Regional Medical CenterC Urineon 82-69-0407Cvgqrzes identified Cx Nom (U) Microbiology PROCEDURE: Urine Culture [R1] SOURCE: U Random BODY SITE: COLLECTED DATE/TIME: 05/05/2024 12:35 EDT RECEIVED DATE/TIME: 05/05/2024 18:57 EDT START DATE/TIME: 05/05/2024 18:57 EDT FREE TEXT SOURCE: BERNICE CLEMENTE PA-C, PA-C, BERNICE Carias FINAL REPORTS Final Report [] Verified Date/Time: 05/07/2024 08:57 EDT 10,000 cfu/ml Escherichia coli ESBL SUSCEPTIBILITY RESULTS LEGEND: S=Susceptible, N/R=Not Reported, Blank=Data not available, or drug not advisable or tested, I=Intermediate, ESBL=Extended spectrum beta-lactamase, R=Resistant, TFG=Thymidine-dependent strain, ANA=Beta-lactamase positive, QUINTIN=mcg/m;(mg/L), S*=Predicted susceptible interp, R*=Predicted resistant interp ECESBL Antibiotic QUINTIN Dilutn QUINTIN Interp Ampicillin >16 R* Ampicillin/ [...] This test was performed at: [facility], [address] [place] [address], [address]- , [place], CemqfhXkfrpuSt. Elizabeth HospitalComment on above:Performed By: #### [id number] #### [facility] [address] [place] [address]Zmvvyeazfr - Microbiology and Antimicrobial susceptibility Ordered By: Laura Handley on 74-16-0591Lozmtahu identified Cx Nom (U)10,000 cfu/ml Gram Negative Jose Pawn Broker speciesRegency Hospital Cleveland EastReminders on 78-85-6186QbuonfchgZghdawonn From: Christina Saul To: EU - Administrative; Sent: 08/09/2023 10:15:11 EDT Show up: 04/13/2024 10:14:00 EST Subject: 1 yr f/u Due Date/Time: 07/14/2024 10:14:00 EDT Reminder/Recall patient seen on 07/15/2023. Patient needs a 1 yr f/u w/ PVR with AO in [place]. Appointment due by07/14/2024 Pt has been scheduled for 08/05/24.[facility] HospitalUrology Office/Clinic Noteon 92-87-2966Sxzzrkm Office/Clinic NoteUrology Office/Clinic Note Chief Complaint urinary incontinence HPI [...] incontinence Patient is accompanied with son 10/26/23 Bun/Lockstitch Waistline Joiner/GFR nl 1. Recurrent UTI (N39.0: Urinary tract [...] WYATT at last OV. Antibiotic should end around04/20. Patient states UTI sxs are improving but she has noticed increased episodes of incontinence. Discussed UA results, shows trace leuks only. Advised pt that her urinary sxs could still be due to i nfection and recommend she complete current antibiotics prior to changing Trospium. She is agreeable. She continues to take OTC supplements, Estrace cream 3x/weekly and Vitamin C 500 mg daily. Urine pHis 5.5 today, recommend starting Methenamine to help [...] day(s), # 60 tab(s), Refills(s) 11, Pharmacy: [facility], 160, cm, 04/14/24 12:55:00 EST, Height/Length Dosing, 61, kg, 04/14/24 12:55:00EST, Weight Dosing Body Mass Index (BMI) documented 3008F Current tobacco non-user 1036F Depression Screening Negative 3352F E&M of Est. Patient Moderate 30-39 Min 86455 Influenza immunization status assessed 1030F Medication list [...] PVR 01/29/24 - 19mL 04/01/24 - 24mL No PVR today BBSQ not complete today. Was 20 at last OV. Currently taking Trospium 60 mg qAM. Reports no bothersome SEs at this time. Reports worsening incontinence but patient currently being treated for acute UTI, on Bactrim. Wears depends, changes >5times/day. Patient leaks with urge and also without awareness. She stopped taking Lasix and has notnoticed a reduction in incontinence episodes. Recommend continuing [...] E&M of Est. Patient Moderate 30-39 Min 60526 Influenza immunization status assessed 1030F Medication list [...] Stick Auto w/o Microsco (more content not included)...[facility] HospitalComment on above:Result Comment: Electronically Signed By: Monserrat EDEN, Ludy.br\Date and Time Signed: 04/14/24 14:04 ESTC Urineon 63-20-1796Ghkqbkvr identified Cx Nom (U)Microbiology PROCEDURE: Urine Culture [R1] SOURCE: U Random [...] or tested, I=Intermediate, ESBL=Extended spectrum beta-lactamase, R=Resistant, TFG=Thymidine-dependent strain, ANA=Beta-lactamase positive, QUINTIN=mcg/m;(mg/L), S*=Predicted susceptible interp, [...] This test was performed at: [facility], [address] [place] [address], [facility] , , FckwsgRwdfosProMedica Defiance Regional HospitalComment on above:Performed By: #### [id number] #### [facility] [address] [place], [place] [address]Ambulatory Visit Summaryon 61-91-9259Akqmgdljvq Visit Summary Ambulatory Visit Summary OZZIE WALKER :1950 Visit Date:04/01/2024 Ambulatory Visit Instructions Your Diagnosis Recurrent UTI Incontinence without sensory awareness Your Care Team Attending Physician - BERNICE CLEMENTE PA-C Primary Care Physician - BARB VIDES, This Is Your Medications List Misc Prescription (BACLOFEN 20MG TAB) amlodipine (amLODIPine 2.5 mg Tab) aspirin (aspirin 81 mg Chew Tab) ciprofloxacin (ciprofloxacin 500 mg Tab) clonazepam (ClonazePAM 0.5 mg Tab) estradiol topical (Estrace 0.1 mg/g Cream) ferrous sulfate (FeroSul 325 mg oral tablet) furosemide (Lasix 20 mg Tab) metoprolol (metoprolol 25 mg ER Tab) potassium chloride (Potassium Chloride (Bse-Xalq-Wuz M10) 10 mEq oral tablet, extended release) [...] BERNICE CLEMENTE PA-C Where: [facility] [address] [place] [address] [place] [address]- You Need to Complete the Following Urine [...] then 3x per week thereafter Pickup at [facility] Unchanged amlodipine (amLODIPine 2.5 mg Tab) [...] TAB) 0 Unchanged potassium chloride (Potassium Chloride (Qtj-Jlcx-Pca M10) 10 mEq oral tablet, extended release) Unchanged quetiapine (quetiapine 50 mg oral tablet) Unchanged rosuvastatin (rosuvastatin 20 mg Tab) Unchanged topiramate (topiramate 50 mg Tab) Unchanged trospium (trospium 60 mg oral capsule, extended release) 1 Capsules By Mouth Once a day (in the morning) Urinary incontinence without sensory awareness Duration: 90 Days Pharmacy Information [facility]: [address] [place] [id number] [phone] Allergies penicillin Problems Ongoing - Any problem [...] you for choosing us for your care. [facility] HospitalUrology Office/Clinic Noteon 97-10-6351Vdyddak Office/Clinic NoteUrology Office/Clinic Note Chief Complaint 2 month with [...] - tx w/ Bactrim x 10d 10/26/23 Bun/Lockstitch Waistline Joiner/GFR nl. TODAY: Pt started OTC UTI preventives after last visit as instructed. However had breakthrough UTI in Feb and infected again now. UA today shows trace ketones, traced- lysed blood, positive nits, large blood. Reviewed UA. Patientdoes reports some burning and pain while urinating. KUB 04/01/24 [facility] - independent review - I don't appreciate any significant stone burden to explainher recurrent UTIs. We will start pt on topical estrogen cream. Reasoning, side effects, risks/benefits discussed. Rx sent to pharmacy. Patient's PH was 6 today. Will have the patient start Vit C then if pH <5.5 next visit can startMethenamine. -Cont OTC supplements (cranberry, probiotics, D-mannose) -Add [...] mg qAM Follow-up With When Contact Information BERNICE CLEMENTE PA-C, URL [address] [address] Additional Instructions: -Follow up in [...] mg ER Tab, Oral, Daily Potassium Chloride (Taq-Ubvy-Qgv M10) 10 mEq oral tablet, extended release quetiapine 50 mg oral tablet rosuvastatin 20 mg Tab topiramate 50 mg Tab trospium 60 mg oral capsule, extended release, 60 mg= 1 cap(s), Oral, qAM, 3 refills Allergies penicillin Social History Tobacco Never (less than 100 in lifetime) Tobacco Use:. Never Smokeless Tobacco Use:. Household toba (more content not included)...[facility] Comment on above:Result Comment: Electronically Signed By: BERNICE CLEMENTE PA-C\.br\Date and Time Signed: 04/01/2509:57 EST\.br\Electronically Co-Signed By: Judy Cool.dannielle\Date and Time Co-Signed: 04/01/24 10:32 ESTXR Abdomen 1 View on 56-44-8627SB Abdomen 1 ViewExam Date/Time: 04/01/2024 09:48 EST Reason for Exam: [...] Aneesh Bermudez M.D. Transcribed by: RUMA Technologist: [facility] Urineon 40-28-6015Teilgxfz identified Cx Nom (U)Microbiology PROCEDURE: Urine Culture [R1] SOURCE: U CleanCatch BODY SITE: COLLECTED DATE/TIME: 02/20/2024 11:30 EST RECEIVED DATE/TIME: 02/20/2024 18:39 EST START DATE/TIME: 02/20/2024 18:39 EST FREE TEXT SOURCE: BERNICE CLEMENTE PA-C, PA-C, JENNIFER E FINAL REPORTS Final Report [] Verified Date/Time: 02/22/2024 11:14 EST >100,000 cfu/ml Klebsiella pneumoniae SUSCEPTIBILITY RESULTS LEGEND: S=Susceptible, N/R=Not Reported, Blank=Data not available, or drug not advisable or tested, I=Intermediate, ESBL=Extended spectrum beta-lactamase, R=Resistant, TFG=Thymidine-dependent strain, ANA=Beta-lactamase positive, QUINTIN=mcg/m;(mg/L), S*=Predicted susceptible interp, [...] This test was performed at: [facility], [address] [place] [address], [address] , , HuwxhzJwpfmkProMedica Defiance Regional HospitalComment on above:Performed By: #### [id number] #### [facility] [address] [place] [address]MX ankle/arm indiceson 80-38-6262KG ankle/arm indicesLouis Stokes Cleveland [facility] [address] [place] [address] Ultrasound Report Signed Patient: Ozzie Gifford MR#: [id number] : 1950 Acct:[id number] Age/Sex: 73 / F ADM Date: 02/20/24 Loc: [facility] Room: Type: DEP CLI Attending Dr: Denver Juarez MD Ordering Provider: [...] Denver Juarez MD02/21/2024 3:36 PM Dictation Location: [place] [address] Tech: Bernice Riggs Transcribed By: SHYANN 02/21/24 1536 Dictated By: Denver Juarez MD 02/21/24 1535 Signed By: 02/21/24 1536[facility] Physician GroupUS carotid doppler BIon 38-28-6962YN carotid doppler [facility] [address] [place] [address] Ultrasound Report Signed Patient: Ozzie Gifford MR#: [id number] : 1950 Acct:[id number] Age/Sex: 73 / F ADM Date: 02/20/24 Loc: [facility] Room: Type: DEP CLI Attending Dr: Denver Juarez MD Ordering Provider: [...] MD02/21/2024 3:36 PM Dictation Location: RAD-DOC-04 Tech: Amanimisha Mcfarlane Transcribed By: SHYANN 02/21/24 153 Dictated By: Denver Juarez MD 02/21/24 153 Signed By: 02/21/[address] [place] [address] Physician GroupURINALYSISOrdered By: SYSTEM SYSTEM on 66-96-4926Qzjrntco Auto Ql (U)2+ /HPFInvalid Interpretation Code Trace/HPFFTMC UA Auto SSBilirubin Ql (U)NegativeNormalNegativemg/dLFT UA Auto SSCalcium oxalate crystals Computer assisted Ql (U)Present graded/HPFInvalid Interpretation CodeFTMC UA Auto SSClarity (U)Turbid *ABN* (02/20/24 11:30 AM)Invalid Interpretation CodeClearFC UA Auto SSColor (U)Yellow 1 (02/20/24 11:30 AM)NormalYellowFT UA Auto SSComment on above:Interpretive Data: Microscopic readings are only performed on those samples that meet specific criteria set forth by [facility].Epithelial cells.squamous Auto (Urine sed) [#/Area]3-4 graded/HPFInvalid Interpretation CodeFT UA Auto SSGlucose Ql (U)NegativeNormalNegativemg/dLFT UA Auto SS Hemoglobin Auto test strip (U) [Mass/Vol]NegativeNormalNegativemg/dLFTMC UA Auto SSKetones Auto test strip Ql (U)NegativeNormalNegativemg/dLFTMC UA Auto SS Leukocyte esterase Auto test strip Ql (U)250 Flora/uL Flora/uLInvalid Interpretation CodeNegativeLeu/uLFT UA Auto SSMucus Auto Ql (U)Trace graded/LPFNormal Negativegraded/LPFFTMC UA Auto SSNitrite Auto test strip Ql (U)2+ mg/dLInvalid Interpretation CodeNegativemg/dLFTMC UA Auto SSpH (U)5.5 *NA* (02/20/24 11:30 AM)Invalid Interpretation Code5.0 - 9.0FT UA Auto SSProtein Ql (U)NegativeNormalNegativemg/dLFT UA Auto SSRBC Ql (U)0-3 graded/HPFNormal 0-3graded/HPFFTMC UA Auto SSSpecific gravity (U) [Rel density]1.025 *NA* (02/20/24 11:30 AM)Invalid Interpretation Code1.005 - 1.030FT UA Auto SS Urobilinogen (U) [Mass/Vol]NegativeNormalNegativemg/dLLAUREATE [facility] UA Auto SSWBC Auto (Urine sed) [#/Area]31-75 graded/HPFInvalid Interpretation Code0-5graded/HPFLAUREATE PSYCHI[facility] UA Auto SSURINALYSISOrdered By: Niurka Canas on 03-27-2060HD Spec Desc Clean Catch (02/20/24 11:30 AM)NormalLAUREATE PSY[facility] UA Auto SSUrinalysis with Microon 99-66-9285Bziigfza Auto Ql (U)2+ /HPFAbnormalTraceFostoria City HospitalComment on above: Performed By: #### [id number] #### [facility] [address] [place], [place] [address]Dmddvozli Ql (U)NegativeNormalNegativeFostoria City HospitalComment on above:Performed By: #### [id number] #### [facility] [address], [place] [address]Qfideie oxalate crystals Computer assisted Ql (U)Present AbnormalFostoria City HospitalComment on above:Performed By: #### [id number] #### [facility] [address], [place] [address]Rpvrvof (U)TurbidAbnormalCleMercy Health – [facility] Hospital Comment on above:Performed By: #### [id number] #### [facility] [address], [place] [address]Ykiyn (U)YellowNormalYellowFostoria City HospitalComment on above:Result Comment: Microscopic readings are only performed on those samples that meet specific criteria set forth by [facility].Performed By: #### [id number] #### [facility] [address], [place] [address]Jeybgvdlku cells.squamous Auto (Urine sed) [#/Area]3-4Invalid Interpretation CodeFostoria City HospitalComment on above:Performed By: #### [id number] #### [facility] [address], [place] [address]Cgmwqyy Ql (U)NegativeNormalNegativeFostoria City Hospital Comment on above:Performed By: #### [id number] #### [facility] [address] [place] [address]Pjxjguscqj Auto test strip (U) [Mass/Vol]NegativeNormalNegative [facility] HospitalComment on above:Performed By: #### [id number] #### [facility] [address] [place] [address]Grqqefh Auto test strip Ql (U)NegativeNormalNegativeFostoria City HospitalComment on above:Performed By: #### [id number] #### [facility] [address] [place] [address]Bsfrkkhsd esterase Auto test strip Ql (U)250 Flora/uLAbnormal [facility] County HospitalComment on above:Performed By: #### [id number] #### [facility] [address] [place] [address]Sgidg Auto Ql (U)TraceNormalNegFirelands Regional Medical Center South Campus Comment on above:Performed By: #### [id number] #### [facility] [address] [place] [address]Iwewrey Auto test strip Ql (U)2+ mg/dLAbnormalNegFirelands Regional Medical Center South CampusComment on above:Performed By: #### [id number] #### [facility] [address] [place] [address]xX (U)5.5 [pH]Invalid Interpretation Code5.0-9.0Fostoria City HospitalComment on above:Performed By: #### [id number] #### [facility] [address] [place] [address]Ejksymy Ql (U)NegativeWexner Medical Center Comment on above:Performed By: #### [id number] #### [facility] [address] [place] [address] [address]TPM Ql (U)9-0Rqhshi7-9ElhvgqFisher-Titus Medical CenterComment on above:Performed By: #### [id number] #### [facility] [address], [place] [address]Ofiqrjil gravity (U) [Rel density]1.025Invalid Interpretation Code1.005-1.030Fostoria City HospitalComment on above:Performed By: #### [id number] #### [facility] [address], [place] [address]Ehqkvcixokwu (U) [Mass/Vol]NegativeNormalNegativeFostoria City HospitalComment on above:Performed By: #### [id number] #### [facility] [address] [place] [address]XMR Auto (Urine sed) [#/Area]38-50Snmdtpos7-5ZjrpobFisher-Titus Medical CenterComment on above:Performed By: #### [id number] #### [facility] [address] [place] [address]76[address]Lsrx of Urine collection methodClean CatchNormalFostoria City HospitalComment on above:Performed By: #### [id number] #### [facility] [address] [place] [address]Jbhlltscij Visit Summaryon 69-33-4710Wcwajurpdm Visit Summary Ambulatory Visit Summary OZZIE WALKER :1950 Visit Date:01/29/2024 Ambulatory Visit Instructions Your Diagnosis UTI (urinary tract infection) Your Care Team Attending Physician - BERNICE CLEMENTE PA-C Primary Care Physician - BARB VIDES, Referring Physician - CINDY COLLADO CNP This Is Your Medications List Misc Prescription (BACLOFEN 20MG TAB) amlodipine (amLODIPine 2.5 mg Tab) aspirin (aspirin 81 mg Chew Tab) ciprofloxacin (ciprofloxacin 500 mg Tab) clonazepam (ClonazePAM 0.5 mg Tab) ferrous sulfate (FeroSul 325 mg oral tablet) furosemide (furosemide 40 mg Tab) metoprolol (metoprolol 25 mg ER Tab) potassium chloride (Potassium Chloride (Pca-Zfth-Qbi M10) 10 mEq oral tablet, extended release) quetiapine (quetiapine 50 mg oral tablet) rosuvastatin (rosuvastatin 20 mg Tab) topiramate (topiramate 50 mg Tab) trospium (trospium 60 mg oral capsule, extended release) Procedures Performed Breast surgery, Gastric bypass, Hysterectomy, Knee replacement. What to do next Scheduled Follow-Up Appointments Saturday 8:40 AM EST With: CORRIE EDEN, BERNICE Carias Where: [facility] [address] [place] [address]- Medications What How Much When Why Instructions [...] TAB) 0 Unchanged potassium chloride (Potassium Chloride (Dnf-Nvkd-Eko M10) 10 mEq oral tablet, extended release) [...] you for choosing us for your care. [facility] HospitalNo Panel Informationon 96-60-2601TUHGKXZCKVBPDY EPIDERMIDIS, HAEMOLYTICUS, LUGDUNENSIS, SAPROPHYTICUS (DGMRQ2GVZO HealthcareSTAPHYLOCOCCUS EPIDERMIDIS, HAEMOLYTICUS, LUGDUNENSIS, SAPROPHYTICUS (URINANot detectedNOMS HealthcareURINARY TRACT INFECTION (HTRX)on 23-99-3933EWXPSFUPVFARU YOCBNZCA6AUAW HealthcareACINETOBACTER BAUMANIINot detectedNOMS HealthcareCANDIDA ALBICANS, PARAPSILOSIS, CGEXDPKLQE6FXJN HealthcareCANDIDA ALBICANS, PARAPSILOSIS, TROPICALISNot detectedNOMS Healthcare EVANGELINA BQWZALGP3JHIY HealthcareCANDIDA GLABRATANot detectedNOMS Healthcare EVANGELINA JQLYOT0GAFG HealthcareCANDIDA KRUSEINot detectedNOMS Healthcare CITROBACTER FFWGRBER9KYJA HealthcareCITROBACTER FREUNDIINot detectedNOMS HealthcareCTX-M1 (15), M2 (2), M9 (9), M8-25 KGLCQY11.764AbnormalNOMS Healthcare CTX-M1 (15), M2 (2), M9 (9), M8-25 GROUPSDetectedAbnormalNOMS HealthcareDFR (A1, A5), SUL (1,2)18.626AbnormalNOMS HealthcareDFR (A1, A5), SUL (1,2)Detected AbnormalNOMS HealthcareENTEROBACTER AEROGENES, YTOBTSK9PFTS Healthcare ENTEROBACTER AEROGENES, CLOACAENot detectedNOMS HealthcareENTEROCOCCUS FAECALIS, TYUXPNC0YHUY HealthcareENTEROCOCCUS FAECALIS, FAECIUMNot detectedNOMS Healthcare ESCHERICHIA COLI20.787AbnormalNOMS HealthcareESCHERICHIA COLIDetectedAbnormal NOMS HealthcareInterpretation and review of laboratory resultsAbnormalNOMS HealthcareKLEBSIELLA PNEUMONIAE, VEUULED8TPCC HealthcareKLEBSIELLA PNEUMONIAE, OXYTOCANot detectedNOMS HealthcareMORGANELLA BZYFUIRP5UMLH HealthcareMORGANELLA MORGANIINot detectedNOMS HealthcarePROTEUS MIRABILIS, DOMPLBUH1QLZI Healthcare PROTEUS MIRABILIS, VULGARISNot detectedNOMS HealthcarePSEUDOMONAS AERUGINOSA0 NOMS HealthcarePSEUDOMONAS AERUGINOSANot detectedNOMS HealthcareSERRATIA NZOUPHVYXB9HGUF HealthcareSERRATIA MARCESCENSNot detectedNOMS HealthcareSHV, KPC EATJIW05.606AbnormalNOMS HealthcareSHV, KPC GROUPSDetectedAbnormalNOMS HealthcareSTAPHYLOCOCCUS TERRBV0YGVT HealthcareSTAPHYLOCOCCUS AUREUSNot detected NOMS HealthcareSTREPTOCOCCUS AGALACTIAE (GROUP B STREP)29.666AbnormalNOMS HealthcareSTREPTOCOCCUS AGALACTIAE (GROUP B STREP)DetectedAbnormalNOME HealthcareSTREPTOCOCCUS PYOGENES (GROUP A STREP)0NOMS HealthcareSTREPTOCOCCUS PYOGENES (GROUP A STREP)Not detectedNOMS HealthcareNOMS HealthcareUrinalysis macro (dipstick) panel (U)on 18-44-5133Dwaqdoxxm, UA2+Negative - 4(70) +++ mg/dL NOMS HealthcareBlood, UAPositiveNegative - 50 Joesph/mcLNOMS HealthcareClarity, UA ClearNOMS HealthcareColor, UAYellowNOMS HealthcareGlucose, UANegativeNegative - 2000(110) ++++ mg/dLNOME HealthcareInterpretation and review of laboratory resultsAbnormalNOMS HealthcareKetones, UANegativeNegative - 160(16) ++++ mg/dL NOMS HealthcareLeukocytes, UAPositiveNegative - 500+++ Flora/mcLNOME Healthcare Nitrite, UANegativeNegative - PositiveNOMS HealthcarepH, UA55 - 9NOMS Healthcare Protein, UAPositiveNegative - 2000(20) ++++ mg/dLNOME HealthcareSpec Grav, UA 1.0151 - 1.03NOMS HealthcareUrobilinogen, UA0.20.2 - 12 mg/dLNOMS HealthcareNOMS HealthcareFL esophaguson 42-47-8290QP esophagusPROTESTANT DEACONESS [place] [address] Fluoroscopy Report Signed Patient: Ozzie Gifford MR#: [id number] : 1950 Acct:[id number] Age/Sex: 73 / F ADM Date: 12/12/23 Loc: XD Room: Type: [facility] Attending Dr: Aime Clark DO Copies to: Aime Clark DO Ordering Provider: Aime Clark DO Date of Service: 12/12/23 FL/FL esophagus: [...] Flood Jr., D.O.12/12/2023 1:56 PM Dictation Location: [place] [address] Transcribed By: [facility] 12/12/23 1356 Dictated By: Wili Flood Jr, DO 12/12/23 1354 Signed By: 12/12/23 1356[facility] UA (CLEAN/CATCH) MICROSCOPIC IF INDICATEon 22-38-0804SVORVEZBC URINENegativeNEGATIVENOMS HealthcareBLOOD URINENegativeNEGATIVENOMS HealthcareClarity (U)CLEARCLEARNOMS HealthcareColor (U)YELLOWYELLOWNOMS HealthcareGLUCOSE URINE UANegativeNEGATIVE mg/dLNOME HealthcareInterpretation and review of laboratory resultsAbnormalNOMS Healthcare Ketones Ql (U)NegativeNEGATIVE mg/dLNOMS HealthcareLeukocyte esterase Test strip Ql (U)SMALLAbnormalNEGATIVENOMS HealthcareNITRITE URINEPositiveAbnormalNEGATIVE NOMS HealthcarepH (U)6.5 [pH]5.0 - 9.0NOMS HealthcarePROTEIN URINENegative NEG/TRACE mg/dLNOMS HealthcareSPECIFIC GRAVITY URINE1.0201.005 - 1.025NOMS HealthcareURINE MICROSCOPIC INDICATEDYESNOMS HealthcareUROBILINOGEN URINE1.0 EU/dL0.2 - 1.0 EU/dLNOMS HealthcareCLINISYNCNOMS HealthcareALL CBC WITH AUTO DIFFon 28-31-1552DYDPKLSGB ABSOLUTE AUTO0.1NOMS HealthcareBasophils/100 WBC (Bld)1.0 %0.2 - 2.0 %NOMS HealthcareEosinophils/100 WBC (Bld)9.8 %High0.9 - 7.0 %NOMS HealthcareErythrocyte distribution width (RBC) [Ratio]12.7 %11.0 - 15.0 % NOMS HealthcareHematocrit (Bld) [Volume fraction]44.3 %36.0 - 48.0 %NOMS HealthcareHemoglobin (Bld) [Mass/Vol]14.4 g/dL12.0 - 16.0 g/dLNOME Healthcare IMMATURE GRANULOCYTES ABS AUTO0.01NOMid [facility] Health CenterImmature granulocytes/100 WBC (Bld)0.2 %0.0 - 0.5 %[facility] CenterInterpretation and review of laboratory resultsAbnormalNOME HealthcareLYMPHOCYTES ABSOLUTE AUTO1.7NOMS Healthcare Lymphocytes/100 WBC (Bld)34.6 %20.5 - 60.0 %[facility] ServicesH (RBC) [Entitic mass]29.1 pg26.7 - 34.0 pgNONevada Regional Medical CenterHC (RBC) [Mass/Vol]32.5 g/dL29.9 - 35.2 g/dLSaint Francis Hospital & Health ServicesV (RBC) [Entitic vol]89.7 fL81.0 - 99.0 fLCameron Regional Medical CenterMONOCYTES ABSOLUTE AUTO0.4NOME HealthcareMonocytes/100 WBC (Bld)7.6 % 1.7 - 12.0 %[facility] Medical CenterNEUTROPHILS ABSOLUTE AUTO2.3NOMS [facility] Neutrophils/100 WBC (Bld)46.8 %43.0 - 75.0 %[facility] Medical CenterPlatelet mean volume (Bld) [Entitic vol]9.9 fL9.5 - 13.5 fLNOME HealthcareTBH EO #0.5N[facility]S Healthcare TBH TWE961PtlUHAG [facility]or HospitalTB RBC4.94NOMS HealthcareTBH WBC4.9NOMS Healthcare CLINISYNCNOME HealthcareOffice Visiton 17-27-7304Ygmqeq-up [id number] Ozzie Gifford 1950 F Date Provider Department Center 09/11/2023 RUBEN MARCANO [facility] Family History Problem Relation Age of Onset Hypertension Mother Hypertension Father Heart attack Brother Family Status - Relation Status Age at Mother Father Brother Level of Service:32735 MI OFFICE/OUTPATIENT ESTABLISHED MOD [facility]23 Ambulatory Visit SummaryAmbulatory Visit Summary OZZIE WALKER :1950 Visit Date:08/21/2023 Ambulatory Visit Instructions Your Diagnosis UTI (urinary tract infection) Your Care Team Attending Physician - BERNICE CLEMENTE PA-C Primary Care Physician - SHAIKH DAY MD This Is Your Medications List trospium (trospium 60 mg oral capsule, extended release) Contact prescribing physician if questions or concerns Misc Prescription (BACLOFEN 20MG TAB) amlodipine (amLODIPine 2.5 mg Tab) aspirin (aspirin 81 mg Chew Tab) clonazepam (ClonazePAM 0.5 mg Tab) ferrous sulfate (FeroSul 325 mg oral tablet) furosemide (furosemide 40 mg Tab) metoprolol (metoprolol 25 mg ER Tab) potassium chloride (Potassium Chloride (Vqf-Iezk-Dhs M10) 10 mEq oral tablet, extended release) [...] URL When: Only if needed Where: [address] [facility] [place] [address] Business (1) Medications What How [...] or concerns Unchanged potassium chloride (Potassium Chloride (Utq-Jaau-Ckv M10) 10 mEq oral tablet, extended release) [...] take the entire prescrip (more content not included)...[facility] HospitalUrology Office/Clinic Noteon 46-91-5010Ejttjap Office/Clinic NoteUrology Office/Clinic Note Chief Complaint OV due to [...] sample so we treated empirically w Bactrim x3d. pt states she is worried she might [...] that cloudiness/odor could certainly be due to dehydration/concentrated urine. encouraged hydration including water, juice, lemonade, etc. call if dysuria recurs. otherwise f/u as planned for incontinence w AO. Ordered: 01778 Measure Post Void residual urine and/or bladder capacity by US- non-imaging E&M of Est. Patient Low 20-29 Min 28217 Urnls Dip Stick Auto w/o Microscopy POC 90970 Follow-up With When Contact Information BERNICE CLEMENTE PA-C, URL Only if needed [address] [place] [address] [facility] (1) Additional Instructions: Patient Education Antibiotic Medicine, [...] mg ER Tab, Oral, Daily Potassium Chloride (Jmc-Iggc-Ljn M10) 10 mEq oral tablet, extended release [...] Protein Urine Dipstick: Negative (08/21/23 13:18:00) Specific [place] Urine Dipstick: 1.020 (08/21/23 13:18:00) Urine Appearance Urine Dipstick: Clear (08/21/23 13:18:00) Urine Color Urine Dipstick: Yellow (08/21/23 13:18:00) Urobilinogen Urine Dipstick: Normal 0.2-1 EU/dl (08/21/23 13:18:00) pH Urine Dipstick: 5 (08/21/23 13:18:00)[facility] HospitalComment on above:Result Comment: Electronically Signed By: BERNICE CLEMENTE PA-C\Date and Time Signed: 08/20/2412:54 EDTC Urineon 21-33-1717Oysetiwa identified Cx Nom (U)Microbiology PROCEDURE: Urine Culture [R1] SOURCE: U CleanCatch BODY SITE: COLLECTED DATE/TIME: 07/15/2023 13:56 EDT RECEIVED DATE/TIME: 07/15/2023 18:58 EDT START DATE/TIME: 07/15/2023 18:58 EDT FREE TEXT SOURCE: MITRA Quintero APRN, MITRA Quintero APRN, Carmen Morales X FINAL REPORTS Final Report [] Verified Date/Time: 07/17/2023 10:42 EDT >100,000 cfu/ml Escherichia coli SUSCEPTIBILITY RESULTS LEGEND: S=Susceptible, N/R=Not Reported, Blank=Data not available, or drug not advisable or tested, I=Intermediate, ESBL=Extended spectrum beta-lactamase, R=Resistant, TFG=Thymidine-dependent strain, ANA=Beta-lactamase positive, QUINTIN=mcg/m;(mg/L), S*=Predicted susceptible interp, [...] This test was performed at: [facility], [address] [place] [address], [facility] , , NyhqirUzwwloProMedica Defiance Regional HospitalComment on above:Performed By: #### [id number] #### [facility] [address] [place], [place] [id number] Visit Summaryon 87-64-1564Zdwuwpeedd Visit Summary OZZIE WALKER :1950 Visit Date:07/15/2023 Ambulatory Visit Instructions Your Diagnosis Dysuria Incontinence without sensory awareness White matter disease UTI (urinary tract infection) Your Care Team Attending Physician - MITRA Quintero APRN, [place] X Primary Care Physician - SHAIKH DAY MD This Is Your Medications List Misc Prescription (BACLOFEN 20MG TAB) amlodipine (amLODIPine 2.5 mg Tab) aspirin (aspirin 81 mg Chew Tab) clonazepam (ClonazePAM 0.5 mg Tab) ferrous sulfate (FeroSul 325 mg oral tablet) furosemide (furosemide 40 mg Tab) metoprolol (metoprolol 25 mg ER Tab) potassium chloride (Potassium Chloride (Kca-Kzlj-Mol M10) 10 mEq oral tablet, extended release) [...] TAB) 0 Unchanged potassium chloride (Potassium Chloride (Bvf-Unkb-Exx M10) 10 mEq oral tablet, extended release) [...] you for choosing us for your care. [facility] HospitalPatient Educationon 07-15-2023 Patient EducationObstetrics and Gynecology Urinary Tract Infection, Adult A [...] this condition includes: ? Antibiotic medicine. ? Qwce-xvs-wjkxhwc medicines to treat discomfort. ? Drinking enough [...] these instructions at home: Medicines ? Take zfdj-dcy-sevncje and prescription medicines only as told by [...] Revised: 09/09/2020 Document Revie (more content not included)...[facility] HospitalUrology Office/Clinic Noteon 55-67-5372Tszrlkj Office/Clinic NoteChief Complaint Pt is here for Dysuria, frequency [...] with voice recognition artificial intelligence software, specifically [employer], [employer] and or [employer]. Substitutions may have occurred due to the [...] 7 days. Finish course completely unless instructed otherwiseby our office. Discussed possible side effects, discontinue [...] day(s), # 14 cap(s), Refills(s) 0, Pharmacy: [facility] #[id number], 160, cm, 07/15/23 12:40:00 EDT, Height/Length Dosing, 60, kg, 07/15/23 12:40:00 EDT, Weight Dosing 2. Incontinence without sensory awareness, (N39.42: Incontinence without sensory awareness) PVR 28 ml Patient previously reported constant leakage of urine, not always with urge to void. Wearing doubledepends that she was changing numerous times throughout the day. notes that she has using abathroom more frequently at baseline, but staying more dry. Patient is not able to verbalize, he depends she is going through in a day. Patient states she has decreased her intake of bladder irritants. At prior office visit, patient was started on trospium 60 mg daily. 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 She is tolerating it well without side effects. Refill sent to pharmacy. -Continue timed voids, voiding maneuvers -Follow-up 1 year for med recheck, sooner if needed Urinary incontinence without sensory awareness Ordered: trospium, 60 mg = 1 cap(s), Oral, qAM, X 90 day(s), # 90 cap(s), Refills(s) 3, Pharmacy: [facility] #[id number], 160, cm, 07/15/23 12:40:00 EDT, Height/Length Dosing, 60, kg, 07/15/23 12:40:00 EDT, Weight Dosing trospium, 60 mg = 1 cap(s), Oral, qAM, X 90 day(s), # 90 cap(s), Refills(s) 0, Pharmacy: [facility][id number], 160, cm, 03/07/23 10:58:00 EST, Height/Length Dosing, 60, kg, 03/07/23 10:58:00 EST, Weight Dosing 93411 Measure Post Void residual urine and/or bladder capacity by US- non-imaging 3. White matter disease (R90.82: White matter disease, unspecified) [facility] inpatient stay 03/01/23 - for head stuff per patient. CT brain w/o con 03/01/23 - stable atrophy and white matter disease [1] Patient is here with her today, states that she is following with neurology regarding her memory and worsening ambulation. Ordered: 64513 Measure Post Void residual urine and/or bladder capacity by US- non-imaging Orders: Urnls Dip Stick Auto w/o Microscopy POC 69638 Follow-up With When Contact Information MITRA Quintero APRN, Carmen Rm, FAM, URL Additional Instructions: 1 yr w/ PVR Patient Education Urinary Tract Infection, Adult Urinary Incontinence Problem List/Past Medical History Ongoing Dysuria Headache Hypertension Incontinence without sensory awareness Strok (more content not included)...[facility] HospitalComment on above:Result Comment: Electronically Signed By: MITRA Quintero APRN, Carmen Rm\.br\Date and Time Signed: 07/15/23 13:40 EDTLaboratory - Chemistry and Chemistry - challengeon 49-93-7897Dcuxodmly Ql (U)NegativeMercy Health Lorain HospitalGlucose (U) [Mass/Vol]NegativeMercy Health Lorain Hospital Ketones Ql (U)traceMercy Health Lorain HospitalpH (U)5.5 [pH][facility] Medical Centerpecific gravity (U) [Rel density]1.025Mer[facility] HospitalUrobilinogen (U) [Mass/Vol]0.2 mg/dLMercy Health Lorain HospitalLaboratory - Specimen informationon 51-60-5536Ldhsjkkdea (U)clearMercy Health Lorain HospitalColor (U)darkyellowMercy Health Lorain Hospital Laboratory - Urinalysison 42-25-1367Pfkhgjwrg esterase Test strip Ql (U)small [facility] HospitalNitrite Ql (U)PositiveMercy Health Lorain HospitalProtein Ql (U)NegativeMercy Health Lorain HospitalNo Panel Informationon 48-66-4507Iszns Occult BloodNegativeMercy Health Lorain HospitalUrine Cultureon 37-47-6440Hanmkvsq identified Cx Nom (U)ORGANISM: Gram Negative Bacilli (O:GNB) [place] Count >100,000 PERFORMED BY: [place] [address] PATHOLOGIST COIL REWIND MACHINE OPERATOR YOCASTA BYRNE M.D.NormalMercy Health Lorain HospitalComment on above: Performed By: #### CUU #### [place] [address] USAUrine culture routineon 79-88-8473Mxfaabog identified Cx Nom (U)Klebsiella pneumoniaeAbnormalMercy Health Lorain HospitalBasophils Auto (Bld) [#/Vol]Ordered By: Nakul Nazario on 90-53-6097Tirqqewpv (Bld) [#/Vol]0.0 10*3/uL0.0-0.2FSamaritan HospitalBasophils/100 WBC Auto (Bld)Ordered By: Nakul Nazario on 51-54-4533Apkfahjsy/100 WBC (Bld)0.8 %. [facility] HospitalBlood activated clotting time by coagulation assayOrdered By: Denver Juarez on 89-46-5758PSL Coag (Bld)298 s90-139 [facility] HospitalComment on above:Reference Range: 90-139 (Non-heparinized)Calcium [Mass/volume] in Serum or PlasmaOrdered By: Nakul Nazario on 79-83-4947Cyagzie [Mass/Vol]9.3 mg/dL8.6-10.3FSamaritan HospitalCarbon dioxide, total [Moles/volume] in Serum or PlasmaOrdered By: Nakul Nazario on 02-76-3823XS9 [Moles/Vol]29.4 mmol/L21.0-31.0Mer[facility] HospitalChloride [Moles/volume] in Serum or PlasmaOrdered By: Nakul Nazario on 57-66-5243Ocigkeri [Moles/Vol]110 mmol/V06-287FesnheyxkMercy Health Lorain HospitalCreatinine [Mass/volume] in Serum or PlasmaOrdered By: Nakul Nazario on 56-83-6882Sggjqllmug [Mass/Vol]0.81 mg/dL0.60-1.20[facility] HospitalEosinophils Auto (Bld) [#/Vol]Ordered By: Nakul Nazario on 92-48-7081Fmxcumkzrjb (Bld) [#/Vol]0.4 10*3/uL0.0-0.45Mer[facility] HospitalEosinophils/100 WBC Auto (Bld)Ordered By: Nakul Nazario on 50-06-8439Rckfkzbycge/100 WBC (Bld)6.8 %.[facility] HospitalErythrocyte distribution width Auto (RBC) [Ratio]Ordered By: Nakul Nazario on 51-08-9878Ivpmfbxhclu distribution width (RBC) [Ratio]13.7 %11.9-15.3 [facility] HospitalGlucose [Mass/volume] in Serum or PlasmaOrdered By: Nakul Nazario on 30-71-9441Eowjxms [Mass/Vol]77 mg/zI90-167HlrogbfomMercy Health Lorain HospitalComment on above:ADA recommended reference rangeRandom Glucose Reference Range is dependent on time and content of last meal. Glucose of more than 200 mg/dL in a nonstressed, ambulatory subject supports the diagnosisof Diabetes Mellitus.Hematocrit Auto (Bld) [Volume fraction]Ordered By: Nakul Nazario on 37-31-9381Rxkjnkiarf (Bld) [Volume fraction]44.3 %34.0-46.4 [facility] HospitalHemoglobin [Mass/volume] in BloodOrdered By: Nakul Nazario on 12-51-0179Ctalnzhtty (Bld) [Mass/Vol]15.2 g/dL11.8-15.4 [facility] HospitalLeukocytes [#/volume] corrected for nucleated erythrocytes in Blood by Automated counOrdered By: Nakul Nazario on 83-52-7780VCG corrected for nucl RBC Auto (Bld) [#/Vol]5.5 10*3/uL3.8-11.6 [facility] HospitalLymphocytes Auto (Bld) [#/Vol]Ordered By: Nakul Nazario on 75-34-0494Fotcwlmzxuv (Bld) [#/Vol]1.4 10*3/uL1.00-4.8 [facility] HospitalLymphocytes/100 WBC Auto (Bld)Ordered By: Nakul Nazario on 17-60-2646Zvvzjkxjedj/100 WBC (Bld)25.9 %.[facility] Auto (RBC) [Entitic mass]Ordered By: Nakul Nazario on 12-56-9730WVR (RBC) [Entitic mass]29.6 pg24.7-34.3FSamaritan HospitalMCHC Auto (RBC) [Mass/Vol]Ordered By: Nakul Nazario on 96-47-1114WBKE (RBC) [Mass/Vol]34.3 g/dL32.0-35.0[facility] HospitalMCV Auto (RBC) [Entitic vol]Ordered By: Nakul Nazario on 21-30-2146TOU (RBC) [Entitic vol]86.4 cS03-713LaehblrfkMercy Health Lorain HospitalMonocytes Auto (Bld) [#/Vol]Ordered By: Nakul Nazario on 84-41-7263Qapuvhrra (Bld) [#/Vol] 0.4 10*3/uL0.0-0.8[facility] HospitalMonocytes/100 WBC Auto (Bld) Ordered By: Nakul Nazario on 56-08-7201Pvnhaxoty/100 WBC (Bld)7.8 %. [facility] HospitalNeutrophils Auto (Bld) [#/Vol]Ordered By: Nakul Nazario on 68-15-1892Txoqiehvhjg (Bld) [#/Vol]3.2 10*3/uL1.8-7.7 [facility] HospitalNeutrophils/100 WBC Auto (Bld)Ordered By: Nakul Nazario on 49-93-8517Likpjydfofo/100 WBC (Bld)58.7 %.[facility] HospitalNo Panel InformationOrdered By: Nakul Nazario on 74-08-2874Iaswblebg GFR (CKD-EPI)> 60.0 mL/MinMercy Health Lorain Hospital Pharmacy Creatinine Clearance (Chem51.50[facility] Nucleated erythrocytes [Presence] in Blood by Automated countOrdered By: Nakul Nazario on 59-53-2658Rbukksmtv RBC Auto Ql (Bld)0.2 /100{WBC}0-0.5 [facility] HospitalPlatelet mean volume Auto (Bld) [Entitic vol] Ordered By: Nakul Nazario on 71-93-1699Htgyowsc mean volume (Bld) [Entitic vol]7.8 fL6.3-10.7FSamaritan HospitalPlatelets Auto (Bld) [#/Vol] Ordered By: Nakul Nazario on 80-84-5678Nbtxznyja (Bld) [#/Vol]185 10*3/uL 150-450Mer[facility] Lorain HospitalPotassium [Moles/volume] in Serum or PlasmaOrdered By: Nakul Nazario on 04-12-5496Xkajxwanx [Moles/Vol]3.2 mmol/L 3.5-5.1FSamaritan HospitalRBC Auto (Bld) [#/Vol]Ordered By: Nakul Nazario on 11-84-1887ZNL (Bld) [#/Vol]5.12 10*6/uL3.60-5.00[facility] Children's Medical Centererum or plasma anion gap determinationOrdered By: Nakul Nazario on 46-72-9565Sosdk gap [Moles/Vol]9.8 mmol/L6.0-15.0[facility] Children's Medical Centerodium [Moles/volume] in Serum or PlasmaOrdered By: Nakul Nazario on 01-28-0125Erylrk [Moles/Vol]146 mmol/H318-659EeupukoxtMercy Health Lorain HospitalUrea nitrogen [Mass/volume] in Serum or PlasmaOrdered By: Nakul Nazario on 34-28-8933Ltam nitrogen [Mass/Vol]16 mg/dL09-04Mer[facility] Health Lorain HospitalWBC Auto (Bld) [#/Vol]Ordered By: Nakul Nazario on 67-34-9017QEF (Bld) [#/Vol]5.5 10*3/uL3.8-11.6FSamaritan Hospital Formson [id number]#1.00TIFFNormal [facility] HospitalPhysician Referralon 35-34-5641Ekpvbkjxe Referral [id number]#1.00TIFFNoSt. Elizabeth HospitalAmbulatory Visit Summaryon 91-70-8527Zhpozysnvi Visit Summary OZZIE WALKER :1950 Visit Date:03/07/2023 [...] mg ER Tab) potassium chloride (Potassium Chloride (Zqx-Zgfo-Aqg M10) 10 mEq oral tablet, extended release) [...] TAB) 0 Unchanged potassium chloride (Potassium Chloride (Gxs-Alis-Vag M10) 10 mEq oral tablet, extended release) [...] you for choosing us for your care. [facility] HospitalPatient Educationon 03-07-2023 Patient EducationUrology Urinary Incontinence Urinary incontinence refers to a [...] the bladder, urethra, and sphincter can store andrelease urine. There are different types of urodynamic [...] of moderate-intensity exercise every week. Ask your healthcare provider which activities are safe for you. [...] urges. This can include distraction techniques or controlledbreathing exercises. ? Medicines, such as: ? Medicines to relax the bladder muscles and prevent bladder spasms. ? Medicines to help slow or prevent the growth of a man's prostate. ? Botox injections. These can help relax the bladder muscles. ? Treatments, such as: ? Using pulses of electricity to help change bladder reflexes (electrical nerve stimulation). ? For women, using a caregivers non medical to prevent urine leaks. This is a [...] skin from urine. ? (more content not included)...[facility] Office/Clinic Noteon [id number] Office/Clinic NoteChief Complaint Supervisor Cigar Making Machine for incontinence HPI Staff Brandie is a 72 y.o. female new patient here for overflow incontinence of urine. Referred by Shruti. BUN 20.0 & CRE 0.74 done on [...] historian. Pt states she walked here from [place] in the rain. Genitourinary: Flank Pain: none. [...] 60 mg ER QD. Rx sent to [facility]. -f/u 6-8 weeks for med recheck and PVR. Ordered: trospium, 60 mg = 1 cap(s), Oral, qAM, X 90 day(s), # 90 cap(s), Refills(s) 0, Pharmacy: [id number], 160, cm, 03/07/23 10:58:00 EST, Height/Length Dosing, 60, kg, 03/07/23 10:58:00 EST, Weight Dosing 2. UTI (urinary tract infection) (N39.0: Urinary tract infection, site not specified) recently dx by PCP [facility] 02/23/23 - 100 k E. coli, treated w/ macrobid. However, pt did have short inpatient stay during course (UA negative at [facility]) and pt states she has a [...] disease, unspecified (R90.82: White matter disease, unspecified) [facility] inpatient stay 03/01/23 - for head stuff per patient. CT brain w/o con 03/01/23 - stable atrophy and white matter disease Pt not able to answer questions directly in visit today. States she walked to [place] office from [place]. Poor historian. Orders: [id number] Measure Post Void residual urine and/or bladder capacity by US- non-imaging Urnls Dip Stick Auto w/o Microscopy POC 93281 Follow-up With When Contact Information MITRA Quintero APRN, Carmen Rm, FAM, URL In 8 weeks [...] mg ER Tab, Oral, Daily Potassium Chloride (Sgc-Gmre-Rkq M10) 10 mEq oral tablet, extended release [...] 10:47:00) Blood Urine Di (more content not included)...[facility] Comment on above:Result Comment: Electronically Signed By: MITRA Quintero APRN, Carmen Rm\.br\Date and Time Signed: 03/07/23 14:30 ESTUrinalysis - AUTOMATEDon 15-63-5048Puuugqrerd (U)[facility] Health[facility] / [employer] Other Bilirubin Ql (U)Trendr HealthTeacher / [employer] Other Color (U)yellowInspire Medical Systems HealthTeacher / [employer] Other Glucose Ql (U)[employer] HealthTeacher / [employer] Other Hemoglobin Ql (U)[employer] HealthTeacher / [employer] Other Ketones Ql (U)[employer] HealthTeacher / [employer] Other Leukocyte esterase Test strip Ql (U)[employer] HealthTeacher / [employer] Other Nitrite Ql (U)[employer] HealthTeacher / [employer] Other pH (U)6.0 [pH][place] HealthTeacher / [employer] Other Protein Ql (U)DeliverooInspire Medical Systems HealthTeacher / [employer] Other Specific gravity (U) [Rel density]1.030[place] Health[facility] / [employer] Other Urobilinogen (U) [Mass/Vol]1.0 mg/dLSpringville HealthTeacher / GoNoodle Other Urinalysis - KitCheckInspire Medical Systems HealthTeacher / [employer] Other ECHOCARDIO M/2D COMPLETEon [id number] M/2D COMPLETEPatient: OZZIE GIFFORD Exam Date: 02/21/2022 : 1950 Gender:F Ordering : DIANA DOZIER Admission #: [id number] Family : SHAIKH Korina DAY . Order #: [id number] CLICK HERE TO VIEW EXAM ECHOCARDIOGRAM REPORT [...] by: Jacklyn Doty M.D. on 02/22/2022 at 13:00[facility] COMP CONSULTATIONon [id number] COMP CONSULTATIONPatient: OZZIE GIFFORD Exam Date: 02/20/2022 : 1950 Gender:F Ordering : SHAIKH Korina DAY . Admission #: [id number] Family : Order #: [id number] CLICK HERE TO VIEW EXAM RADIOLOGY REPORT [...] her congestive heart disease up with her water mechanic in the next 2 weeks. The patient [...] physical exam and consultation Dictated by: Natacha Santana MD on 02/20/2022 at 11:24 Approved by: Natacha Santana MD on 02/20/2022 at 11:35[facility]VC VENOUS REFLUX IAN LMTon [id number] VENOUS REFLUX IAN LMTPatient: OZZIE GIFFORD Exam Date: 02/20/2022 : 1950 Gender:F Ordering : SHAIKH Korina DAY . Admission #: [id number] Family : DR NATACHA SANTANA M.D. Order #: [id number] CLICK HERE TO VIEW EXAM RADIOLOGY REPORT [...] chronic thrombus visualized Compressibility: Normal Flow: Normal Tetryl Boiling Tub Operator: Dist/med calf 2.5mm with 0s reflux. Mid/med calf 3.8mm with 0s reflux. Tech Note: Incompetent SFJ and GSV. Patent varicose vein prox/med calf 2.9mm with 0s reflux. Patent varicose vein dist/med thigh 2.5mm with 0s reflux. CONCLUSION: 1. Mild bilateral great saphenous vein venous insufficiency 2. Few scattered dilated bilateral veins without significant reflux demonstrated Dictated by: Natacha Santana MD on 02/20/2022 at 10:28 Approved by: Natacha Santana MD on 02/20/2022 at 10:30[facility] HospitalUS JANETTE DOP LEG LTon [id number] JANETTE DOP LEG LTINDICATION: Disorder of soft tissue L leg swelling AND pain x4 weeks EXAMINATION: Ultrasound was performed of the left lower extremity veins. TECHNIQUE: Rome scale, pulse wave, and color flow Doppler imaging was performed of the lower extremity venous system. COMPARISON: 01/22/2022 FINDINGS: There is normal compression, augmentation, and signal throughout the visualized deep lower extremity veins. Visualized lower extremity calf veins are patent. No mass or fluid collection. IMPRESSION: 1. Negative left lower extremity ultrasound examination for DVT. Electronically authenticated by: INDRA LOZADA Date: 2022-01-31 18:39[facility] HospitalBNPon [id number] peptide B (Bld) [Mass/Vol]552.0 pg/mLNormal<=900.0The [facility] HospitalComment on above:Performed By: #### ERUR #### [facility] [address] [place] [address] Dr. Grzegorz Hurley AUTO DIFFon [id number] #0.1 103/ulNormal0.0-0.1The [facility] HospitalComment on above:Performed By: #### CBC #### [facility] [address] [address] [address] Grzegorz WangBasophils/100 WBC (Bld)0.9 %Normal0.2-2.0The [facility] Comment on above:Performed By: #### CBC #### [facility] [address] [address] [address] Grzegorz Tellez #0.3 103/ulNormal0.0-0.7The [facility] HospitalComment on above: Performed By: #### CBC #### [facility] [address] [place] [address] Dr. Grzegorz Reisosinophils/100 WBC (Bld)5.5 %Normal0.9-7.0The [facility] Comment on above:Performed By: #### CBC #### [facility] [address] [place] [address] Dr. Grzegorz Reisrythrocyte distribution width (RBC) [Ratio]13.7 %Swrbgc12.0-15.[address] [facility] HospitalComment on above:Performed By: #### CBC #### [facility] [address] [place] [address] Dr. Grzegorz WangHematocrit (Bld) [Volume fraction]41.1 %Pgbbgm07.0-48.0The [facility] HospitalComment on above:Performed By: #### CBC #### [facility] [address] [place] [address] Dr. Grzegorz WangHemoglobin (Bld) [Mass/Vol]13.4 g/iTNxebxj69.0-16.0The [facility] HospitalComment on above:Performed By: #### CBC #### [facility] [address] [place] [address] Dr. Grzegorz Barbosa #0.01 10e3/ulNormal0.00-0.03The [facility] HospitalComment on above:Performed By: #### CBC #### [facility] [address] [place] [address] Dr. Grzegorz Barbosa %0.2 %Normal0.0-0.5The [facility] HospitalComment on above: Performed By: #### CBC #### [facility] [address] [address] [address] Grzegorz Soriano #1.8 103/ulNormal1.2-3.8The [facility] HospitalComment on above:Performed By: #### CBC #### [facility] [address] [address] [address] Grzegorz Wilkinshocytes/100 WBC (Bld)29.9 %Lrozye08.5-60.0The [facility] HospitalComment on above:Performed By: #### CBC #### [facility] [address] [place] [address] Dr. Grzegorz Bowers DIFF REQNONormalThe [facility] HospitalComment on above: Performed By: #### CBC #### [facility] [address] [place] [address] Dr. Grzegorz Delaney (RBC) [Entitic mass]28.2 tfWozfwa35.7-34.0The [facility] HospitalComment on above:Performed By: #### CBC #### [facility] [address] [place] [address] Dr. Grzegorz Finley (RBC) [Mass/Vol]32.6 g/uTMbkzbr24.9-35.2The [facility] on above:Performed By: #### CBC #### [facility] [address] [place] [address] Dr. Grzegorz Finley (RBC) [Entitic vol]86.5 oEPasniw43.0-99.0The [facility] HospitalComment on above:Performed By: #### CBC #### [facility] [address] [place] [address] Dr. Grzegorz Wild #0.7 103/ulNormal0.3-0.8The [facility] HospitalCommymichigan medical center clare on above:Performed By: #### CBC #### [facility] [address] [place] [address] Dr. Grzegorz Lemusocytes/100 WBC (Bld)11.1 %Normal1.7-12.0The [facility] Comment on above:Performed By: #### CBC #### [facility] [address] [place] [address] Dr. Grzegorz Parada #3.1 103/ulNormal1.4-6.5The [facility] HospitalComment on above:Performed By: #### CBC #### [facility] [address] [place] [address] Dr. Grzegorz Omerutrophils/100 WBC (Bld)52.4 %Uujbix52.0-75.0The [facility] HospitalComment on above:Performed By: #### CBC #### [facility] [address] [place] [address] Dr. Grzegorz Corteslet mean volume (Bld) [Entitic vol]9.6 fLNormal9.5-13.5The [facility] HospitalComment on above:Performed By: #### CBC #### [facility] [address] [place] [address] Dr. Grzegorz WangPLT162 103/cdTeznqb367-170Ozv [facility] HospitalComment on above: Performed By: #### CBC #### [facility] [address] [place] [address] Dr. Grzegorz WangRBC4.75 106/ulNormal4.20-5.40The [facility] HospitalComment on above:Performed By: #### CBC #### [facility] [address] [place] [address] Dr. Grzegorz WangWBC5.9 103/ulNormal4.0-11.0The [facility] HospitalComment on above: Performed By: #### CBC #### [facility] [address] [place] [address] Dr. Grzegorz Canela 14(COMP METB)on 04-35-9670Gwzbnkx [Mass/Vol]3.4 g/dLNormal 3.4-5.0The [facility] HospitalComment on above:Performed By: #### ERUR #### [facility] [address] [place] [address] Dr. Grzegorz WangAlbumin/Globulin [Mass ratio]1.0 {ratio}NormalThe [facility] HospitalComment on above:Performed By: #### ERUR #### [facility] [address] [place] [address] Dr. Grzegorz CovarrubiasP [Catalytic activity/Vol]102 U/TEmmckw15-443Mvs [facility] HospitalComment on above:Performed By: #### ERUR #### [facility] [address] [place] [address] Dr. Grzegorz CovarrubiasT [Catalytic activity/Vol]16 U/ARgqvaf41-86Hvr [facility] HospitalComment on above:Performed By: #### ERUR #### [facility] [address] [place] [address] Dr. Grzegorz Ortegaon gap [Moles/Vol]10.6 mmol/LNormalThe [facility] Comment on above:Performed By: #### ERUR #### [facility] [address] [place] [address] Dr. Grzegorz WangAST [Catalytic activity/Vol]18 U/QIvvdyj52-68Plc [facility] HospitalComment on above:Performed By: #### ERUR #### [facility] [address] [place] [address] Dr. Grzegorz WangBilirubin [Mass/Vol]0.4 mg/dLNormal0.2-1.0The [facility] Comment on above:Performed By: #### ERUR #### [facility] [address] [place] [address] Dr. Grzegorz WangCalcium [Mass/Vol]9.0 mg/dLNormal8.5-10.1The [facility] Comment on above:Performed By: #### ERUR #### [facility] [address] [place] [address] Dr. Grzegorz WangChloride [Moles/Vol]103 mmol/SFodafm57-164Bzv [facility] Comment on above:Performed By: #### ERUR #### [facility] [address] [place] [address] Dr. Grzegorz WangCO2 [Moles/Vol]31.4 mmol/KFiqyxm17.0-32.0The [facility] Comment on above:Performed By: #### ERUR #### [facility] [address] [place] [address] Dr. Grzegorz WangCreatinine [Mass/Vol]0.80 mg/dLNormal0.55-1.02The [facility] HospitalComment on above:Performed By: #### ERUR #### [facility] [address] [place] [address] Dr. Grzegorz ReisGFR-AF LAO>60Normal>=60The [facility] HospitalComment on above:Performed By: #### ERUR #### [facility] [address] [place] [address] Dr. Grzegorz Grewal-NON AF LAO>60Normal>=60The [facility] HospitalComment on above:Performed By: #### ERUR #### [facility] [address] [place] [address] Dr. Grzegorz WangGlobulin (S) [Mass/Vol]3.4 g/dLNormalThe [facility] HospitalComment on above:Performed By: #### ERUR #### [facility] [address] [place] [address] Dr. Grzegorz WangGlucose [Mass/Vol]78 mg/pJAlpazx38-913Hyt Comment on above:Performed By: #### ERUR #### [facility] [address] [place] [address] Dr. Grzegorz WangPotassium [Moles/Vol]3.0 mmol/LCritically low3.5-5.1The [facility] HospitalComment on above:Performed By: #### ERUR #### [facility] [address] [place] [address] Dr. Grzegorz WangProtein [Mass/Vol]6.8 g/dLNormal6.4-8.2The [facility] Comment on above:Performed By: #### ERUR #### [facility] [address] [place] [address] Dr. Grzegorz WangSodium [Moles/Vol]142 mmol/VSmrvvx760-463Pwp Comment on above:Performed By: #### ERUR #### [facility] [address] [address] [address] Grzegorz Padron nitrogen [Mass/Vol]14.0 mg/dLNormal7.0-18.0Comment on above:Performed By: #### ERUR #### [facility] [address] [address] [address] Grzegorz Padron nitrogen/Creatinine [Mass ratio]17.5 mg/mgNoDayton Children's HospitalComment on above:Performed By: #### ERUR #### [facility] [address] [place] [address] Dr. Grzegorz Ruiz JANETTE DOP LEG LTon [id number] JANETTE DOP LEG LTEXAM: US JANETTE DOP LEG LT HISTORY: Disorder [...] Electronically authenticated by: MIRI BALTAZAR Date: 2022-01-22 16:38[facility] HospitalLIPID PROFILEon [id number]-HDL RATIO NORMSEE BELOWSt. Francis HospitalComment on above:Result Comment: 3.3 - 4.4 LOW RISK 4.4 - 7.1 AVERAGE RISK 7.1 - 11.0 MODERATE RISK >11.0 HIGH RISKPerformed By: #### PALOMA LIPA #### [facility] [address] [place] [address] Dr. Grzegorz WangCholesterol [Mass/Vol]125 mg/dLNormal<=200 Comment on above:Performed By: #### PALOMA LIPA #### [facility] [address] [place] [address] Dr. Yilan ChangCholesterol in HDL [Mass/Vol]69 mg/dLCritically fjxw90-33WprComment on above:Performed By: #### PALOMA, LIPA #### [facility] [address] [address] [address] Grzegorz WangCholesterol in LDL [Mass/Vol]40.0 mg/dLNoDayton Children's HospitalComment on above:Performed By: #### PALOMA, LIPA #### [facility] [address] [place] [address] Dr. Grzegorz Diaz.total/Cholesterol in HDL [Mass ratio]1.8 {ratio} NormalThe [facility] HospitalComment on above:Performed By: #### PALOMA, LIPA #### [facility] [address] [place] [address] Dr. Grzegorz Fernández NORMAL> or = 60 mg/dl - LOW CARDIOVASCULAR RISK <40 mg/dl - HIGH CARDIOVASCULAR RISKNoDayton Children's HospitalComment on above:Performed By: #### PALOMA, LIPA #### [facility] [address] [place] [address] Dr. Grzegorz Stovall CALC NORMALSEE BELOWSt. Francis HospitalComment on above:Result Comment: <100 mg/dl OPTIMAL 100 - 129 mg/dl NEAR OR ABOVE OPTIMAL 130 - 159 mg/dl BORDERLINE HIGH 160 - 189 mg/dl HIGH >190 mg/dl VERY HIGH Performed By: #### PALOMA, LIPA #### [facility] [address] [place] [address] Dr. Grzegorz WangTriglyceride [Mass/Vol]80 mg/dLNormal<=150 Comment on above:Performed By: #### PALOMA, LIPA #### [facility] [address] [place] [address] Dr. Grzegorz WangVLDL CALC16.0 mg/dLNoDayton Children's HospitalComment on above: Performed By: #### PALOMA, LIPA #### [facility] [address] [place] [address] Dr. Grzegorz Ruiz PELVISon [id number] PELVISEXAMINATION: US PELVIS HISTORY: Cyst of ovary ; [...] Electronically authenticated by: MITZI CHAU Date: 2022-01-18 10:31[facility] HospitalXR CHEST 2 Von [id number] CHEST 2 VEXAMINATION: XR CHEST 2 V HISTORY: Cough COMPARISON: XR chest [...] Electronically authenticated by: MITZI CHAU Date: 2022-01-03 10:48[facility] HospitalUS PELVISon [id number] PELVISEXAMINATION: US PELVIS HISTORY: Cyst of ovary COMPARISON: [...] not identified. Hysterectomy. Electronically authenticated by: MITZI CARIASVIOLETA Date: 2021-12-07 17:20[facility] HospitalPROF CHEM 8 (BAS METB)on 02-01-9818Ibsvg gap [Moles/Vol]13.0 mmol/LNormalComment on above:Performed By: #### PALOMA, LIPA #### [facility] [address] [place] [address] Dr. Grzegorz WangCalcium [Mass/Vol]8.9 mg/dLNormal8.5-10.1The [facility] Comment on above:Performed By: #### PALOMA, LIPA #### [facility] [address] [place] [address] Dr. Grzegorz WangChloride [Moles/Vol]105 mmol/UVvrkaf01-629Eeb Comment on above:Performed By: #### PALOMA, LIPA #### [facility] [address] [place] [address] Dr. Grzgeorz WangCO2 [Moles/Vol]29.0 mmol/BLnkhlr55.0-32.0 Comment on above:Performed By: #### PALOMA, LIPA #### [facility] [address] [place] [address] Dr. Grzegorz WangCreatinine [Mass/Vol]0.79 mg/dLNormal0.55-1.02Comment on above:Performed By: #### PALOMA, LIPA #### [facility] [address] [place] [address] Dr. Grzegorz ReisGFR-AF LAO>60Normal>=60The [facility] HospitalComment on above:Performed By: #### PALOMA, LIPA #### [facility] [address] [place] [address] Dr. Grzegorz ReisGFR-NON AF LAO>60Normal>=60The [facility] HospitalComment on above:Performed By: #### PALOMA, LIPA #### [facility] [address] [place] [address] Dr. Yilan ChangGlucose [Mass/Vol]79 mg/oONoghul83-354Vsv Comment on above:Performed By: #### PALOMA, LIPA #### [facility] [address] [place] [address] Dr. Grzegorz WangPotassium [Moles/Vol]3.0 mmol/LCritically low3.5-5.1The [facility] HospitalComment on above:Performed By: #### PALOMA, LIPA #### [facility] [address] [place] [address] Dr. Grzegorz WangSodium [Moles/Vol]144 mmol/POnfoku168-825Alh [facility] Comment on above:Performed By: #### PALOMA, LIPA #### [facility] [address] [place] [address] Dr. Grzegorz WangUrea nitrogen [Mass/Vol]12.0 mg/dLNormal7.0-18.0The [facility] HospitalComment on above:Performed By: #### PALOMA, LIPA #### [facility] [address] [place] [address] Dr. Grzegorz Padron nitrogen/Creatinine [Mass ratio]15.2 mg/mgNormalThe [facility] HospitalComment on above:Performed By: #### PALOMA, LIPA #### [facility] [address] [place] [address] Dr. Grzegorz WangVITAMIN B12on 06-76-1072Naehyikfm (Vitamin B12) [Mass/Vol]5661.0 pg/mLCritically wlmo977.0-986.0The [facility] HospitalComment on above:Performed By: #### ERUR #### [facility] [address] [place] [address] Dr. Grzegorz WangBNPon 47-01-8930Txeijflhxez peptide B (Bld) [Mass/Vol]1245.0 pg/mLCritically high<=900.0The [facility] HospitalComment on above:Performed By: #### PALOMA, LIPA #### [facility] [address] [place] [address] Dr. Yilan ChangBacterial blood cultureOrdered By: Ashleigh Rashid on 11-26-2021 Bacteria identified Cx Nom (Bld)NO GROWTH 5 DAYSMercy Health Lorain HospitalCARDIAC BAMBI ADMITon [id number] [Catalytic activity/Vol]75 U/LNormal 26-192The [facility] HospitalComment on above:Performed By: #### PALOMA, LIPA #### [facility] [address] [address] [address] Grzegorz Waters.MB [Mass/Vol]1.58 ng/mLNormal<=3.60The [facility] Comment on above:Performed By: #### PALOMA, LIPA #### [facility] [address] [address] [address] Grzegorz MehtaTROP13.3 pg/mLNormal4.0-51.3The [facility] HospitalComment on above:Result Comment: CUT-OFF POINTS HAVE BEEN ESTABLISHED BASED ON THE FOURTH UNIVERSAL DEFINITIONS OF MYOCARDIAL INFARCTION. THE UPPER REFERENCE LIMIT (URL) OF TROPONIN, DEFINED THE 99TH PERCENTILE OF cTnI DISTRIBUTION IN A REFERENCE POPULATION, HAS BEEN CONFIRMED THE DECISION THRESHOLD FOR [place] DIAGNOSIS.Performed By: #### PALOMA, LIPA #### [facility] [address] [address] [address] Grzegorz Royal85 ng/mLCritically high9-82The [facility] HospitalComment on above:Performed By: #### PALOMA, LIPA #### [facility] [address] [address] [address] Grzegorz Hurley AUTO DIFFon 20-93-5341OGTT #0.0 103/ulNormal0.0-0.1The [facility] HospitalComment on above:Performed By: #### PALOMA, LIPA #### [facility] [address] [address] [address] Grzegorz Torressophils/100 WBC (Bld)0.5 %Normal0.2-2.0 Comment on above:Performed By: #### PALOMA, LIPA #### [facility] [address] [place] [address] Dr. Grzegorz Tellez #0.1 103/ulNormal0.0-0.7The [facility] HospitalComment on above: Performed By: #### PALOMA, LIPA #### [facility] [address] [place] [address] Dr. Grzegorz Reisosinophils/100 WBC (Bld)1.3 %Normal0.9-7.0The [facility] Comment on above:Performed By: #### PALOMA LIPA #### [facility] [address] [place] [address] Dr. Grzegorz Reisrythrocyte distribution width (RBC) [Ratio]16.8 %Critically high 11.0-15.0The [facility] HospitalComment on above:Performed By: #### PALOMA, LIPA #### [facility] [address] [place] [address] Dr. Grzegorz WangHematocrit (Bld) [Volume fraction]36.6 %Ezewrg56.0-48.0The [facility] HospitalComment on above:Performed By: #### PALOMA, LIPA #### [facility] [address] [place] [address] Dr. Grzegorz WangHemoglobin (Bld) [Mass/Vol]12.1 g/bXRgmpyu68.0-16.0The [facility] HospitalComment on above:Performed By: #### PALOMA, LIPA #### [facility] [address] [place] [address] Dr. Grzegorz Barbosa #0.03 10e3/ulNormal0.00-0.03The [facility] HospitalComment on above:Performed By: #### PALOMA, LIPA #### [facility] [address] [place] [address] Dr. Grzegorz Barbosa %0.5 %Normal0.0-0.5The [facility] HospitalComment on above: Performed By: #### PALOMA, LIPA #### [facility] [address] [place] [address] Dr. Grzegorz Soriano #0.9 103/ulCritically low1.2-3.8The [facility] Comment on above:Performed By: #### PALOMA, LIPA #### [facility] [address] [place] [address] Dr. Grzegorz Finleymphocytes/100 WBC (Bld)15.4 %Critically low20.5-60.0The [facility] HospitalComment on above:Performed By: #### PALOMA, LIPA #### [facility] [address] [place] [address] Dr. Grzegorz AriasUAL DIFF REQNONormalThe [facility] HospitalComment on above: Performed By: #### PALOMA, LIPA #### [facility] [address] [place] [address] Dr. Grzegorz Finley (RBC) [Entitic mass]27.7 czDobbij52.7-34.0The [facility] HospitalComment on above:Performed By: #### PALOMA, LIPA #### [facility] [address] [place] [address] Dr. Grzegorz Finley (RBC) [Mass/Vol]33.1 g/kXNfwxuc45.9-35.2The [facility] HospitalComment on above:Performed By: #### PALOMA, LIPA #### [facility] [address] [place] [address] Dr. Grzegorz Finley (RBC) [Entitic vol]83.8 eODitafq24.0-99.0The [facility] HospitalComment on above:Performed By: #### PALOMA, LIPA #### [facility] [address] [place] [address] Dr. Grzegorz Wild #0.5 103/ulNormal0.3-0.8The [facility] HospitalComment on above:Performed By: #### PALOMA, LIPA #### [facility] [address] [place] [address] Dr. Grzegorz Lemusocytes/100 WBC (Bld)7.8 %Normal1.7-12.0The [facility] Comment on above:Performed By: #### PALOMA, LIPA #### [facility] [address] [place] [address] Dr. Yilan ChangNEUT #4.5 103/ulNormal1.4-6.5The [facility] HospitalComment on above:Performed By: #### PALOMA, LIPA #### [facility] [address] [place] [address] Dr. Grzegorz Omerutrophils/100 WBC (Bld)74.5 %Xdzsto03.0-75.0The [facility] HospitalComment on above:Performed By: #### PALOMA, LIPA #### [facility] [address] [place] [address] Dr. Grzegorz WangPlatelet mean volume (Bld) [Entitic vol]11.2 fLNormal9.5-13.5The [facility] HospitalComment on above:Performed By: #### PALOMA, LIPA #### [facility] [address] [place] [address] Dr. Grzegorz WangPLT187 103/wfCbiwgg726-179Qch [facility] HospitalComment on above: Performed By: #### PALOMA, LIPA #### [facility] [address] [place] [address] Dr. Grzegorz WangRBC4.37 106/ulNormal4.20-5.40The [facility] HospitalComment on above:Performed By: #### PALOMA, LIPA #### [facility] [address] [place] [address] Dr. Grzegorz WangWBC6.0 103/ulNormal4.0-11.0The [facility] HospitalComment on above: Performed By: #### PALOMA, LIPA #### [facility] [address] [place] [address] Dr. Grzegorz WangCT ABD/PELVIS WO CONon [id number] ABD/PELVIS WO CONEXAMINATION: CT ABD/PELVIS WO CON, 11/26/2021 12:12 PM [...] findings of obstruction. The appendix is normal. Peritoneum/retroperitoneum: No free fluid or gas. Vasculature: Atherosclerosis [...] Electronically authenticated by: MANDI MANRIQUEZ Date: 2021-11-26 15:08[facility] [id number] WO [facility]EXAMINATION: CT HEAD WO CON, CT CSPINE WO [...] substantial canal or foraminal stenosis. L1-L2: Left foraminal/extraforaminal protrusion. Mild facet arthropathy with thickening of [...] authenticated by: SHANIA WASHINGTON Date: 2021-11-26 14:44 [facility]Ge[facility] URINE PROFILEon [id number] Ql (U)Negative NormalNEGATIVEComment on above:Performed By: #### CBC #### [facility] [address] [place] [address] Dr. Grzegorz Goldman (U)CLEARNormalCLEARThe [facility] HospitalComment on above: Performed By: #### CBC #### [facility] [address] [place] [address] [address] Grzegorz Delvalle (U)LT. YELLOWNormalYELLOWThe [facility] HospitalComment on above:Performed By: #### CBC #### [facility] [address] [place] [address] [address] Grzegorz Dawson micrscopic examination will be performed if indicated. NormalThe [facility] HospitalComment on above:Performed By: #### CBC #### [facility] [address] [place] [address] [address] Grzegorz Syedose Ql (U)NegativeNormalNEGATIVEThe Kateryna HospitalComment on above:Performed By: #### CBC #### [facility] [address] [place] [address] [address] Grzegorz WangHemoglobin Ql (U)TRACE-INTACTAbnormalNEGATIVEComment on above:Performed By: #### CBC #### [facility] [address] [place] [address] [address] Grzegorz WangKetones Ql (U)NegativeNormalNEGATIVEComment on above:Performed By: #### CBC #### [facility] [address] [place] [address] [address] Grzegorz WangLEUKOCYTESNegativeNormalNEGATIVECommymichigan medical center clare on above:Performed By: #### CBC #### [facility] [address] [place] [address] Dr. Grzegorz WangNitrite Ql (U)NegativeNormalNEGATIVEComment on above:Performed By: #### CBC #### [facility] [address] [place] [address] [address] Grzegorz WangpH (U)5.5 [pH]Normal5-9Commymichigan medical center clare on above: Performed By: #### CBC #### [facility] [address] [place] [address] Dr. Grzegorz WangSPEC GRAVITY<=1.175Mwwddqfl7.005-<=1.025 Comment on above:Performed By: #### CBC #### [facility] [address] [place] [address] Dr. Grzegorz Jones PROTEINNegativeNormalNEGATIVE/ TRACE Comment on above:Performed By: #### CBC #### [facility] [address] [place] [address] Dr. Grzegorz Durham MICRO INDINDICATEDSt. Francis HospitalComment on above: Performed By: #### CBC #### [facility] [address] [place] [address] [address] Grzegorz Hsubilinogen Qn (U)0.2 {Lidya'U}/dLNormal0.2 - 1.0The [facility] HospitalComment on above:Performed By: #### CBC #### [facility] [address] [place] [address] Dr. Grzegorz Canela 14(COMP METB)on 74-84-8300Mfqzsnq [Mass/Vol]3.5 g/dLNormal 3.4-5.0The [facility] HospitalComment on above:Performed By: #### PALOMA, LIPA #### [facility] [address] [place] [address] Dr. Grzegorz WangAlbumin/Globulin [Mass ratio]1.1 {ratio}NormalThe [facility] HospitalComment on above:Performed By: #### PALOMA, LIPA #### [facility] [address] [place] [address] Dr. Grzegorz CovarrubiasP [Catalytic activity/Vol]89 U/AWyxzad32-390Mbr [facility] HospitalComment on above:Performed By: #### PALOMA, LIPA #### [facility] [address] [place] [address] Dr. Grzegorz Cummings [Catalytic activity/Vol]22 U/NIghqlp14-07Pfa [facility] HospitalComment on above:Performed By: #### PALOMA, LIPA #### [facility] [address] [place] [address] Dr. Grzegorz Peters gap [Moles/Vol]10.2 mmol/LNormalThe [facility] Comment on above:Performed By: #### PALOMA, LIPA #### [facility] [address] [place] [address] Dr. Grzegorz Wilcox [Catalytic activity/Vol]18 U/SMmjksj74-94Xpj [facility] HospitalComment on above:Performed By: #### PALOMA, LIPA #### [facility] [address] [place] [address] Dr. Grzegorz WangBilirubin [Mass/Vol]0.6 mg/dLNormal0.2-1.0The [facility] Comment on above:Performed By: #### PALOMA, LIPA #### [facility] [address] [place] [address] [address] Grzegorz WangCalcium [Mass/Vol]9.1 mg/dLNormal8.5-10.1The [facility] Comment on above:Performed By: #### PALOMA, LIPA #### [facility] [address] [place] [address] [address] Grzegorz WangChloride [Moles/Vol]106 mmol/JVqowoz75-242Jjx [facility] Comment on above:Performed By: #### PALOMA, LIPA #### [facility] [address] [place] [address] [address] Grzegorz WangCO2 [Moles/Vol]29.5 mmol/GFarjuf80.0-32.0 Comment on above:Performed By: #### PALOMA, LIPA #### [facility] [address] [place] [address] Dr. Grzegorz WangCreatinine [Mass/Vol]0.86 mg/dLNormal0.55-1.02The [facility] HospitalComment on above:Performed By: #### PALOMA, LIPA #### [facility] [address] [place] [address] Dr. Grzegorz ReisGFR-AF LAO>60Normal>=60The [facility] HospitalComment on above:Performed By: #### PALOMA, LIPA #### [facility] [address] [place] [address] Dr. Grzegorz ReisGFR-NON AF LAO>60Normal>=60The [facility] HospitalComment on above:Performed By: #### PALOMA, LIPA #### [facility] [address] [place] [address] Dr. Grzegorz WangGlobulin (S) [Mass/Vol]3.1 g/dLNormalThe [facility] HospitalComment on above:Performed By: #### PALOMA, LIPA #### [facility] [address] [place] [address] Dr. Grzegorz WangGlucose [Mass/Vol]98 mg/mRXmuban45-177Zvm [facility] Comment on above:Performed By: #### PALOMA, LIPA #### [facility] [address] [place] [address] [address] Grzegorz WangPotassium [Moles/Vol]2.7 mmol/LCritically low3.5-5.1The [facility] HospitalComment on above:Performed By: #### PALOMA, LIPA #### [facility] [address] [place] [address] Dr. Grzegorz WangProtein [Mass/Vol]6.6 g/dLNormal6.4-8.2The [facility] Comment on above:Performed By: #### PALOMA, LIPA #### [facility] [address] [place] [address] Dr. Grzegorz WangSodium [Moles/Vol]143 mmol/YXzewzb546-275Gce [facility] Comment on above:Performed By: #### PALOMA, LIPA #### [facility] [address] [place] [address] Dr. Grzegorz WangUrea nitrogen [Mass/Vol]12.0 mg/dLNormal7.0-18.0The [facility] HospitalComment on above:Performed By: #### PALOMA, LIPA #### [facility] [address] [place] [address] Dr. Grzegorz Padron nitrogen/Creatinine [Mass ratio]14.0 mg/mgNoDayton Children's HospitalComment on above:Performed By: #### PALOMA, LIPA #### [facility] [address] [place] [address] Dr. Grzegorz Borja [id number] Coag (PPP) [Relative time]1.00 {INR} NormalThe [facility] HospitalComment on above:Performed By: #### CBC #### [facility] [address] [place] [address] Dr. Grzegorz Hercules GUIDELINESSEE BELOWSt. Francis HospitalComment on above:Result Comment: DESIRED INR: 2.0 - 3.0 CONDITIONS NOT LISTED BELOW 2.5 - 3.5 FOR PROSTHETIC HEART VALVE REPLACEMENT 2.5 - 3.5 RECURRENT THROMBOSIS Performed By: #### CBC #### [facility] [address] [place] [address] [address] Grzegorz Davis Coag (PPP) [Time]10.8 sNormal9.0-11.6The [facility] Comment on above:Performed By: #### CBC #### [facility] [address] [place] [address] Dr. Grzegorz Aguilar [id number] Coag (Bld) [Time]23.1 vFyqhqd24.3-36.2The [facility] HospitalComment on above:Performed By: #### CBC #### [facility] [address] [place] [address] Dr. Grzegorz FUENTES ONLYon [id number] SEENNormalNONE SEENComment on above:Performed By: #### CBC #### [facility] [address] [place] [address] Dr. Grzegorz [place] identified Cx Nom (U)NOT INDICATEDNoDayton Children's HospitalComment on above:Performed By: #### CBC #### [facility] [address] [place] [address] Dr. Grzegorz Go SEENNormalNONE SEENComment on above:Performed By: #### CBC #### [facility] [address] [place] [address] Dr. Grzegorz Brenner LM Nom (Urine sed)NONE SEENNormalNONE SEENThe [facility] HospitalComment on above:Performed By: #### CBC #### [facility] [address] [place] [address] Dr. Lantigua ChangEpithelial cells LM Ql (Urine sed)FEWAbnormalNONE SEEN /RAREThe [facility] HospitalCommymichigan medical center clare on above:Performed By: #### CBC #### [facility] [address] [place] [address] Dr. Grzegorz TubbsUSNONE SEENNormalNONE SEENComment on above:Performed By: #### CBC #### [facility] [address] [place] [address] Dr. Grzegorz WangVgqpcTPZ2-1Mjmrsp6-8Div [facility] HospitalComment on above:Performed By: #### CBC #### [facility] [address] [place] [address] [address] Lantigua ChangWBC0-2AbnormalNONE SEENComment on above: Performed By: #### CBC #### [facility] [address] [place] [address] [address] Grzegorz WangXR CHEST 1 Von [id number] CHEST 1 VEXAM: Chest x-ray HISTORY: . Asthenia . COMPARISON: 09/02/2021 TECHNIQUE: Single view of the chest. FINDINGS: Heart and vascularity are unremarkable. Lungs are free of focal infiltrates. Loop recorder overlies the left heart border. Atherosclerotic changes of the thoracic aorta are noted. Impression: No acute heart or lung disease identified. Electronically authenticated by: NATACHA JAUREGUI Date: 2021-11-26 14:21[facility] BRAIN HEAD WO CONTRASTon [id number] BRAIN HEAD WO CONTRAST EXAM DESCRIPTION: CT [...] previous infarct. There is no intra-axial or extra- axial bleed seen. There is no mass or [...] By: ISMAEL AGUILAR MD Signed Out: 11/24/21 14:21:18[facility]ED Adult Data - Texton [id number] Adult Data - TextED Adult Data Entered On: 11/24/2021 15:26 EDT Performed On: 11/24/2021 [...] Fall ; Classification: Medical ; Clinical Service: Non- Specified ; Code: PNED ; Probability: 0 ; Diagnosis Code: [id number] Fall Date: 11/24/2021 ; Diagnosis Type: Reason For Visit ; Confirmation: Confirmed ; Clinical Dx: Fall ; Classification: Medical ; Clinical Service: Emergency medicine ; Code: PNED ; Probability: 0 ;Diagnosis Code: [id number] Procedure History ED Devices Present on Arrival [...] risk situation (congregated living, hemodialysis, infusion clinic, custodial, assisted living, half-way, homeless penitentiary, etc.)? : No Jennifer Mccarthy RN - 11/24/2021 15:25 EDTToledo Hospital CenterED Discharge Education [id number] Discharge EducationDermatology Cuts Closed With [place]: Care Instructions Your Care Instructions A cut [...] below the kemi. The deeper layer of stitchesbrings the deep part of the cut together. [...] develop later. If you notice any problems ornew symptoms, get medical treatment right away. Follow-up care is a jordan part of your treatment and safety. Be sure to make and go to all appointments, and call your doctor if you are having problems. It's also a good idea to know your test resultsand keep a list of the medicines you take. How can you care for yourself at home? ? Keep the cut dry for the first 24 to 48 hours. After this, you can shower if your doctor okays it. Pat the cut dry. ? Don't soak the cut, such as in a bathtub. Your doctor will tell you when it's safe to get the cutwet. ? If your doctor told you how [...] your doctor if you can take an fbgg-fnj-zzdgsop medicine. When should you call for help? [...] Where can you learn more? Go to [email or web address]/patientEd Enter U868 in the search box to learn more about Cuts Closed With Kemi: Care Instructions. Current as of: April 08, 2019 Content Version: 12.7 ? [employer]. Care instructions adapted under license by your healthcare professional. If you have questions about a medical condition or this instruction, always ask your healthcare professional. [employer] disclaims any warranty or liability for your use of this information. Neurology Learning About a Closed Head Injury What is a closed head injury? A closed head injury happens when your head gets hit hard. The strong force of the blow causes yourbrain to shake in your skull. This movement [...] headache or feel not quite right. These symptomsare common. They usually go away over a [...] go home, follow your doctor's instructions. He domo will (more content not included)... [facility] Emergency Severity Index Adult-Texton [id number] Emergency Severity Index Adult-TextESI - Adult Entered On: 11/24/2021 12:33 EDT Performed On: 11/24/2021 12:33 EDT by Jennifer Mccarthy RN DCP GENERIC CODE Visit Reason : FALL Tracking Triage Date/Time : 11/24/2021 12:33 EDT Tracking Reg Status : Requested Tracking Acuity : 3V-Urgent Tracking Group : [facility] Tracking Jennifer Mccarthy RN 11/24/2021 12:33 EDTNoSelect [facility] CenterED Nrsing Adlt Triage Sep Scrning - Texton [id number] Nrsing Adlt Triage Sep Scrning - TextED Nursing Adult Triage Sepsis Screening Tool Entered On: 11/24/2021 13:00 EDT Performed On: 11/24/2021 13:00 EDT by Jennifer Mccarthy RN Adult Sepsis Screening Sepsis Infection Screening ED : Yes Sepsis Vitals Screening ED : None/ NA(Peds) Jennifer Mccarthy RN - 11/24/2021 13:00 EDTNoSelect [facility] Special[facility] CenterED Patient Summaryon [id number] [facility] Discharge Instructions [address] [place] [address] \.br\(Patient Copy)\.br\ \.br\Name: OZZIE GIFFORD : 1950 \.br\Allergies: penicillin\.br\Diagnosis: Accidental fall; CHI (closed head injury); Contusion of rib on rightside; Laceration of scalp\.br\ \.br\ Visit Date: 11/24/2021 12:30:03 \.br\ Current Date Time: 11/24/2021 17:30:08 \.br\Address: [address] [place] [address] [place] [address] \.br\ \.br\ \.br\Primary Care Provider: \.br\Name: NO FAMILY PHYSICIAN, 837\.br\Phone: \.br\ \.br\Emergency Department Care Providers: \.br\ Primary Physician: LUIS DARNELL MD \.br\.br\ \.br\.br\Thank you for choosing [facility] for your emergency care. You are very important to us. Our goal is to demonstrate our high quality medical care, and provide you with a very good patient experience.\.br\.br\You may receive a survey about our service. Please take the time tocomplete the survey and return it so we can continue to enhance our service.\.br\.br\Thank you zaki katz for allowing the [facility] Emergency Department to care for your medical needs. If you have questions about your care or follow up information please contact us at [phone].\.br\.br\ Follow-Up Instructions\.br\ \.br\OZZIE GIFFORD has been given these follow-up instructions:\.br\.br\.br\With: Address: When: \.br\[facility] [address], [address] [place] [address]\.br\ Business (1) Within 7 to 10 days \.br\.br\.br\With: Address: When: \.br\[address] [facility] Within 3 to 5 days \.br\.br\.br\.br\.br\Patient Education Materials\.br\ \.br\OZZIE GIFFORD has been given the followingpatient education materials:\.br\.br\Cuts Closed With Kemi: Care Instructions\.br\Your Care Instructions\.br\A cut can happen anywhere on your body.\.br\The doctor used kemi to close the cut. [place] easily and quickly close a cut, which [...] checked you carefully, but problems can develop later.If you notice any problems or new symptoms, get medical treatment right away.\.br\Follow-up care ava jordan part of your treatment and safety. [...] hydrogen peroxide or alcohol, which can slow hea ling.\.br\? You may cover the cut with a [...] your doctor if you can take an ghir-kqa-sjqnuhc medicine.\.br\When should you call for help?\.br\ Call [...] or redness around the cut.\.br\? Red streaks leadingfrom the cut.\.br\? Pus draining from the cut.\.br\? A fever. \.br\Watch closely for changes in your health, and be sure to contact your doctor if:\.br\ ? You do not get b (more content not included)...[facility] CenterED Physician Reporton [id number] Physician Report Patient: OZZIE GIFFORD Age: 71 years Sex: Female : 1950 Associated Diagnoses: Accidental fall; CHI (closed head injury); Laceration of scalp; Contusion of rib on right side; Lung nodule Author: LUIS DARNELL MD Basic Information Time seen: Time Seen: LUIS DARNELL MD / 11/24/2021 12:34 . History source: Patient. Arrival mode: Ambulance. History limitation: None. History of Present Illness The patient presents following fall. The onset was just prior to arrival. The occurrence was singleepisode. The fall was described as slipped. [facility] the [facility]. Location: Posterior head. The character of symptoms is pain. Therapy today: see nurses notes. Associated symptoms: denies loss of consciousness. This is a 71 y/o female presenting to the ED via EMS for evaluation of a mechanical fall. The patient states she was at the [facility] and she was going down steps [...] BRAIN HEAD WO CONTRAST (more content not included)...[facility] Pre-Arrival Formon [id number] Pre-Arrival FormPre-Arrival Summary Name: KARTIK, Current Date: 11/24/2021 12:31:19 EDT Gender: Date of : Age: Pre-Arrival Type: EMS ETA: 11/24/2021 12:53:00 EDT Primary Care Physician: Presenting Problem: Pre-Arrival User: Kailyn Jacobs RN Referring Source: Location: [address] [place] [address] Emergency Department [address] [place] [id number] Notes: Vital Signs: Doctor Call Back: DNR Status: Miscellaneous Issues:[facility] Noteon [id number] Progress NotePt presents to ED via EMS for c/o fall, [place], pt denies dizziness, pt states she tripped over her feet, pt has a small lac on the back of her head, pt is alert and oriented,respirations even and unlabored cleaned up the posterior part of pt's head, Dr. Darnell updated n pt 1700-Pt d/c from facility, d/c instructions discussed in detail with pt, pt verbalized understanding, pt ambulatory with steady gait [facility]ED T[facility] Adult-Text on 10-25-6016SA Triage Adult-TextED Triage Entered On: 11/24/2021 13:00 EDT Performed On: 11/24/2021 12:59 EDT by Jennifer Mccarthy RN Triage (As Of: 11/24/2021 13:00:25 EDT) Diagnoses(Active) Fall Date: 11/24/2021 ; Diagnosis Type: Reason For Visit ; Confirmation: Confirmed ; Clinical Dx: Fall ; Classification: Medical ; Clinical Service: Non- Specified ; Code: PNED ; Probability: 0 ; Diagnosis Code: [id number] (As Of: 11/24/2021 13:00:25 EDT) Vitals/Ht/Wt Temperature [...] Jennifer Mccarthy RN - 11/24/2021 12:59 EDT [facility]Urine culture routineOrdered By: Rafiq Bahena on 54-16-6579Hnytoohd identified Cx Nom (U) Escherichia coliMercy Health Lorain HospitalAlbumin [Mass/volume] in Serum or PlasmaOrdered By: Ashleigh Rashid on 88-91-7686Fcqunqk [Mass/Vol]3.0 g/dL3.2-5.5 [facility] HospitalBasophils Auto (Bld) [#/Vol]Ordered By: Ashleigh Rashid on 34-76-5096Pvkppvscv (Bld) [#/Vol]0.0 10*3/uL0.0-0.2FSamaritan HospitalBasophils/100 WBC Auto (Bld)Ordered By: Ashleigh Rashid on 11-22-2021 Basophils/100 WBC (Bld)0.6 %.[facility] HospitalCreatinine and Glomerular filtration rate.predicted panel (S/P/Bld)Ordered By: Ashleigh Rashid on 47-69-5317Jtxpsxkitz [Mass/Vol]1.10 mg/dL0.44-1.03[facility] HospitalComment on above:Delta: 2.08 on 11/21/21-2Eosinophils Auto (Bld) [#/Vol]Ordered By: Ashleigh Rashid on 04-66-2952Adarqtalaxy (Bld) [#/Vol]0.2 10*3/uL 0.0-0.45[facility] HospitalEosinophils/100 WBC Auto (Bld)Ordered By: Ashleigh Rashid on 81-07-1568Vkhsdxxpupw/100 WBC (Bld)4.4 %.[facility] HospitalErythrocyte distribution width Auto (RBC) [Ratio]Ordered By: Ashleigh Rashid on 08-40-8257Zawgfbwuwyc distribution width (RBC) [Ratio]20.7 %11.9-15.3 [facility] HospitalEstimated glomerular filtration rate (GFR) non- AmericanOrdered By: Ashleigh Rashid on 73-25-4470YND/1.73 sq M.predicted among non-blacks MDRD (S/P/Bld) [Vol rate/Area]49 mL/MinMercy Health Lorain HospitalGlobulin Calc (S) [Mass/Vol]Ordered By: Ashleigh Rashid on 19-74-9798Adnknzvz (S) [Mass/Vol]2.4 g/dLMercy Health Lorain HospitalHematocrit Auto (Bld) [Volume fraction]Ordered By: Ashleigh Rashid on 27-31-6512Izyjtxmcru (Bld) [Volume fraction]36.9 %34.0-46.4FSamaritan HospitalHemoglobin [Mass/volume] in BloodOrdered By: Ashleigh Rashid on 30-08-6574Iocxqonpnx (Bld) [Mass/Vol]12.1 g/dL11.8-15.4FSamaritan HospitalLaboratory - Chemistry and Chemistry - challengeOrdered By: Ashleigh Rashid on 55-80-1031Bygkbxtxm [Mass/Vol]2.1 mg/dL1.6-2.6FSamaritan HospitalLaboratory - Hematology and Cell countsOrdered By: Ashleigh Rashid on 20-33-1550Gbqhuksie RBC/100 WBC (Bld) [Ratio]0.1 %0-0.5FSamaritan HospitalLeukocytes [#/volume] in Blood by Automated countOrdered By: Ashleigh Rashid on 54-20-2289IJK (Bld) [#/Vol]4.7 10*3/uL4.5-11.0[facility] HospitalLymphocytes Auto (Bld) [#/Vol]Ordered By: Ashleigh Rashid on 47-04-8927Kelmbvfazhn (Bld) [#/Vol] 1.2 10*3/uL1.00-4.8[facility] HospitalLymphocytes/100 WBC Auto (Bld)Ordered By: Ashleigh Rashid on 85-53-4999Wsbykrxjqfy/100 WBC (Bld)26.0 %. [facility] Auto (RBC) [Entitic mass]Ordered By: Ashleigh Rashid on 28-87-3731XAL (RBC) [Entitic mass]27.2 pg24.7-34.3FSamaritan HospitalMCHC Auto (RBC) [Mass/Vol]Ordered By: Ashleigh Rashid on 18-54-9593XCMP (RBC) [Mass/Vol]32.6 g/dL32.0-35.0[facility] HospitalMCV Auto (RBC) [Entitic vol]Ordered By: Ashleigh Rashid on 25-29-9361AMK (RBC) [Entitic vol] 83.5 aH50-732TwijnjkzbMercy Health Lorain HospitalMonocytes Auto (Bld) [#/Vol] Ordered By: Ashleigh Rashid on 50-97-3670Uiseeocnq (Bld) [#/Vol]0.4 10*3/uL0.0-0.8 [facility] HospitalMonocytes/100 WBC Auto (Bld)Ordered By: Ashleigh Rashid on 95-33-5230Kjkcwvatq/100 WBC (Bld)8.4 %.[facility] Neutrophils Auto (Bld) [#/Vol]Ordered By: Ashleigh Rashid on 17-31-8260Zqivebrlqzn (Bld) [#/Vol]2.8 10*3/uL1.8-7.7FSamaritan HospitalNeutrophils/100 WBC Auto (Bld)Ordered By: Ashleigh Rashid on 20-93-9783Tyaazmraycz/100 WBC (Bld)60.6 % .[facility] HospitalNo Panel InformationOrdered By: Ashleigh Rashid on 63-84-1185Jhuchewgx GFR ()59 mL/MinMercy Health Lorain HospitalComment on above:GFR estimated reference range: According to KDOQI guidelines, <60 ml/min/1.73m2 is sufficient todiagnose a patient with chronic kidney disease.Pharmacy Creatinine Clearance (Chem44.22[facility] HospitalPlatelet mean volume Auto (Bld) [Entitic vol]Ordered By: Ashleigh Rashid on 14-61-5923Lorkxslz mean volume (Bld) [Entitic vol]9.7 fL6.3-10.7FSamaritan HospitalPlatelets Auto (Bld) [#/Vol]Ordered By: Ashleigh Rashid on 00-35-2800Zpytfczii (Bld) [#/Vol]184 10*3/tN689-896SsutkqddpMercy Health Lorain HospitalProtein [Mass/volume] in Serum or PlasmaOrdered By: Ashleigh Rashid on 81-29-2377Sckgfri [Mass/Vol]5.4 g/dL6.1-7.9[facility] HospitalRBC Auto (Bld) [#/Vol]Ordered By: Ashleigh Rashid on 53-63-3878JSH (Bld) [#/Vol]4.43 10*6/uL3.60-5.00[facility] Centererum or plasma alanine aminotransferase measurement without P-5'-P (enzymatic activiOrdered By: Ashleigh Rashid on 33-38-3015DTY No additional P-5'-P [Catalytic activity/Vol]16 U/L10-60 [facility] Centererum or plasma albumin/globulin mass ratio Ordered By: Ashleigh Rashid on 83-07-3396Bkjlels/Globulin [Mass ratio]1.3 {ratio} [facility] Centererum or plasma alkaline phosphatase measurement (enzymatic activity/volume)Ordered By: Ashleigh Rashid on 50-72-7194LGW [Catalytic activity/Vol]70 U/V27-92KzcylpjyjBarney Children's Medical Centererum or plasma anion gap determinationOrdered By: Ashleigh Rashid on 91-50-2976Szlky gap [Moles/Vol]12.2 mmol/L6.0-15.0[facility] Centererum or plasma aspartate aminotransferase measurement (enzymatic activity/volume)Ordered By: Ashleigh Rashid on 87-51-2635ZOR [Catalytic activity/Vol]15 U/J21-40HnqyjmhjiBarney Children's Medical Centererum or plasma calcium measurement (mass/volume)Ordered By: Ashleigh Rashid on 31-33-9981Tdtamgx [Mass/Vol]8.9 mg/dL8.2-10.2FVan Wert County Hospitalerum or plasma chloride measurement (moles/volume)Ordered By: Ashleigh Rashid on 85-79-1982Jpqdmdao [Moles/Vol]115 mmol/M26-147RanpufwqpBarney Children's Medical Centererum or plasma glucose measurement (mass/volume)Ordered By: Ashleigh Rashid on 52-69-3843Qjrgksq [Mass/Vol]93 mg/bL53-536FjlgdxgtsMercy Health Lorain Hospital Comment on above:ADA recommended reference rangeRandom Glucose Reference Range is dependent on time and content of last meal. Glucose of more than 200 mg/dL in a nonstressed, ambulatory subject supports the diagnosisof Diabetes Mellitus. Serum or plasma potassium measurement (moles/volume)Ordered By: Ashleigh Rashid on 36-51-4100Yhlfpakih [Moles/Vol]3.1 mmol/L3.5-5.1FVan Wert County Hospitalerum or plasma sodium measurement (moles/volume)Ordered By: Ashleigh Rashid on 80-09-0704Jlhbfy [Moles/Vol]147 mmol/F439-781KidwpgxgmMercy Health Lorain Hospital Serum or plasma total bilirubin measurement (mass/volume)Ordered By: Ashleigh Rashid on 93-10-9151Nqpnbdxhi [Mass/Vol]0.7 mg/dL0.3-1.2FVan Wert County Hospitalerum or plasma total carbon dioxide measurement (moles/volume)Ordered By: Ashleigh Rashid on 99-45-9232IF4 [Moles/Vol]22.9 mmol/L22.0-30.0[facility] Centererum or plasma urea nitrogen measurement (mass/volume)Ordered By: Ashleigh Rashid on 69-59-3611Eedp nitrogen [Mass/Vol]28 mg/dL9-23[facility] HospitalAmphetamine Screen Ql (U)Ordered By: Rafiq Bahena on 11-21-2021 Amphetamines Ql (U)NegativeNegativeMercy Health Lorain HospitalAutomated erythrocytes count in urine sediment (number/area)Ordered By: Rafiq Bahena on 50-59-1075HKK Auto (Urine sed) [#/Area]0-1 [HPF]0-4FSamaritan HospitalAutomated leukocytes count in urine sediment (number/area)Ordered By: Rafiq Bahena on 00-00-9108BVF Auto (Urine sed) [#/Area]3-4 [HPF]0-4FSamaritan HospitalBarbiturates [Presence] in UrineOrdered By: Rafiq Bahena on 55-46-0725Yvwhlszveuoa Ql (U)NegativeNegWilson Memorial HospitalBasophils Auto (Bld) [#/Vol]Ordered By: Rafiq Bahena on 11-21-2021 Basophils (Bld) [#/Vol]0.0 10*3/uL0.0-0.2FSamaritan Hospital Basophils/100 WBC Auto (Bld)Ordered By: Rafiq Bahena on 68-57-9098Pzfhgacvk/100 WBC (Bld)0.8 %.[facility] HospitalBenzodiazepines [Presence] in UrineOrdered By: Rafiq Bahena on 41-40-0765Qtnyamfgsgdncge Ql (U)Negative NegativeMercy Health Lorain HospitalBilirubin Test strip Ql (U)Ordered By: Rafiq Bahena on 57-49-9359Jxioyotmb Ql (U)NegativeNegativeMercy Health Lorain HospitalBlood hemoglobin measurement (mass/volume)Ordered By: Rafiq Bahena on 25-21-3529Ibehxqppru (Bld) [Mass/Vol]11.6 g/dL11.8-15.4FSamaritan HospitalBlood leukocytes automated count (number/volume)Ordered By: Rafiq Bahena on 62-95-7372UHL (Bld) [#/Vol]5.3 10*3/uL4.5-11.0[facility] HospitalBody fluid albumin measurement (mass/volume)Ordered By: Rafiq Bahena on 60-11-1774Nmidkux (Body fld) [Mass/Vol]3.4 g/dL3.2-5.5FSamaritan HospitalCOVID CepheidOrdered By: Ashleigh Rashid on 11-21-2021 SARS-CoV-2 (COVID-19) Ab IA QlNegativeNegWilson Memorial Hospital Comment on above:This is a duplicate Cepheid Xpert Xpress CoV-2/Flu/RSV Plus RNA by RT-PCR result to be used for statistical tracking purpose only.SARS-CoV-2 (COVID-19) RNA SIOBHAN+probe Ql (Unsp spec)[facility] HospitalCOVID-19 Positive/NegativeOrdered By: Rafiq Bahena on 60-76-8460GLIA-CoV-2 (COVID-19) N gene SIOBHAN+probe Ql (Resp)IndeterminateNegativeMercy Health Lorain Hospital Comment on above:Testing for SARS-CoV-2 by RT-PCRThis test was developed and its performance characteristics determined by [employer] ([employer] and validated at the [facility]. This test has not been FDA [...] unless the authorization is terminated or revoked sooner.COVID-19 SOFIAOrdered By: Rafiq Bahena on 04-62-3237CWKN-CoV+SARS-CoV-2 (COVID-19) Ag IA.rapid Ql (Resp)NegativeNegWilson Memorial HospitalComment on above:This is a duplicate Sissy SARS Antigen (WALKER) result to be used for statistical tracking purpose only.Cannabinoids [Presence] in Urine by Screen methodOrdered By: Rafiq Bahena on 61-24-1150Ohkukehnosfq Screen Ql (U)NegativeNegWilson Memorial HospitalComment on above:These are unconfirmed results and should not be used for legal purposes. Drug Cut-Off Concentration: AMPH 1000 ng/mL RONALD 200 ng/mL CARMELA 200 ng/mL COCM 300 ng/mL OP 300 ng/mL PCP 25 ng/mL THC 20 ng/mLColor Auto (U)Ordered By: Rafiq Bahena on 64-49-3130Oezjo (U)[facility] LimaCreatinine and Glomerular filtration rate.predicted panel (S/P/Bld)Ordered By: Rafiq Bahena on 75-25-3497Hxdtanyrfh [Mass/Vol]2.08 mg/dL0.44-1.03[facility] HospitalEosinophils Auto (Bld) [#/Vol]Ordered By: Rafiq Bahena on 15-94-0864Aeztwpkmbid (Bld) [#/Vol]0.2 10*3/uL0.0-0.45[facility] HospitalEosinophils/100 WBC Auto (Bld) Ordered By: Rafiq Bahena on 21-25-9322Wmpzqdulxno/100 WBC (Bld)3.7 %.[facility] HospitalErythrocyte distribution width Auto (RBC) [Ratio]Ordered By: Rafiq Bahena on 59-42-0925Yjcebbncxon distribution width (RBC) [Ratio]20.4 %11.9-15.3FSamaritan HospitalEstimated glomerular filtration rate (GFR) non- AmericanOrdered By: Rafiq Bahena on 06-40-5611MPP/1.73 sq M.predicted among non-blacks MDRD (S/P/Bld) [Vol rate/Area]23 mL/MinMercy Health Lorain HospitalGlobulin Calc (S) [Mass/Vol]Ordered By: Rafiq Bahena on 87-54-3785Vzffizvo (S) [Mass/Vol]2.1 g/dLMercy Health Lorain Hospital Glucose Glucometer (BldC) [Mass/Vol]Ordered By: Rafiq Bahena on 11-21-2021 Glucose [Mass/Vol]134 mg/dLMercy Health Lorain HospitalComment on above: Random Glucose Reference Range is dependent on time and content of last meal. Glucose of more than 200 mg/dL in a nonstressed, ambulatory subject supports the diagnosis of Diabetes Mellitus.Hematocrit Auto (Bld) [Volume fraction]Ordered By: Rafiq Bahena on 73-38-5936Xjqcwngfmv (Bld) [Volume fraction]35.6 %34.0-46.4 [facility] HospitalKetones Auto test strip (U) [Mass/Vol]Ordered By: Rafiq Bahena on 33-07-4618Ccxfzdr (U) [Mass/Vol]NegativeNegativeMercy Health Lorain HospitalLaboratory - Chemistry and Chemistry - challengeOrdered By: Rafiq Bahena on 92-32-0756HV2 [Moles/Vol]23.8 mmol/L23.0-27.0[facility] HospitalHCO3 (Bld) [Moles/Vol]22.6 mmol/L23.0-29.0[facility] HospitalLaboratory - Drug toxicologyOrdered By: Rafiq Bahena on 41-27-0863Mzsswjl Ql (U)NegativeNegativeMercy Health Lorain Hospital Laboratory - Hematology and Cell countsOrdered By: Rafiq Bahena on 11-21-2021 Nucleated RBC/100 WBC (Bld) [Ratio]0.0 %0-0.5FSamaritan Hospital Laboratory - UrinalysisOrdered By: Rafiq Bahena on 89-83-0423Pcgbgez casts LM Ql (Urine sed)0-8 [LPF]0-8[facility] HospitalLymphocytes Auto (Bld) [#/Vol]Ordered By: Rafiq Bahena on 32-78-5123Uvnsnamhaxk (Bld) [#/Vol]1.1 10*3/uL1.00-4.8[facility] HospitalLymphocytes/100 WBC Auto (Bld) Ordered By: Rafiq Bahena on 74-02-6560Xrtrgupaejl/100 WBC (Bld)20.4 %.[facility] Auto (RBC) [Entitic mass]Ordered By: Rafiq Bahena on 63-95-7930OKD (RBC) [Entitic mass]26.9 pg24.7-34.3FSamaritan HospitalMCHC Auto (RBC) [Mass/Vol]Ordered By: Rafiq Bahena on 47-25-9796UTZW (RBC) [Mass/Vol]32.6 g/dL32.0-35.0[facility] HospitalMCV Auto (RBC) [Entitic vol]Ordered By: Rafiq Bahena on 54-64-7658JCC (RBC) [Entitic vol]82.5 iB74-429OqthsjhrhMercy Health Lorain HospitalMonocyte %Ordered By: Rafiq Bahena on 05-58-4406Jnndxaay %17 umol/Z73-22EhcmdpjveMercy Health Lorain Hospital Monocytes Auto (Bld) [#/Vol]Ordered By: Rafiq Bahena on 20-97-4802Ezplvuebl (Bld) [#/Vol]0.5 10*3/uL0.0-0.8[facility] HospitalMonocytes/100 WBC Auto (Bld)Ordered By: Rafiq Bahena on 88-75-5337Rswlaomqq/100 WBC (Bld)9.9 %.[facility] HospitalNeutrophils Auto (Bld) [#/Vol]Ordered By: Rafiq Bahena on 90-16-7297Wpnxauipnos (Bld) [#/Vol]3.5 10*3/uL1.8-7.7FSamaritan HospitalNeutrophils/100 WBC Auto (Bld)Ordered By: Rafiq Bahena on 01-70-9126Eoqfhktshgq/100 WBC (Bld)65.2 %.[facility] Nitrite Test strip Ql (U)Ordered By: Rafiq Bahena on 30-06-2901Rnlvulm Ql (U) PositiveNegWilson Memorial HospitalNo Panel InformationOrdered By: Ashleigh Rashid on 66-08-4311Kscaztv B12 Level> 7500 pg/wV785-544QngkvxpnvMercy Health Lorain HospitalNo Panel InformationOrdered By: Rafiq Bahena on 11-21-2021 Arterial Blood Base Excess-1.9 mmol/L-3.0-3.0[facility] Arterial Blood Oxygen Content7.1 mmol/L6.6-9.7FSamaritan Hospital Arterial Blood Oxygen Fbzbphwdbe52.9 %95.0-100.0[facility] HospitalArterial Blood Partial Pressure CO237.8 mm[Hg]35.0-45.0[facility] HospitalArterial Blood Partial Pressure O282.7 mm[Hg]80.0-100.0[facility] HospitalArterial Blood pH7.407.35-7.45[facility] HospitalBlood Gas Critical ValueSee [facility] Comment on above:Critical Value called on: 11/21/2021 at 06:17Blood Gas Sample SiteLeft radialMercy Health Lorain HospitalFiO221 %[facility] HospitalEstimated GFR ()28 mL/MinMercy Health Lorain HospitalComment on above:GFR estimated reference range: According to KDOQI guidelines, <60 ml/min/1.73m2 is sufficient todiagnose a patient with chronic kidney disease.Pharmacy Creatinine Clearance (Chem22.98[facility] HospitalBedside Glucose CommentGlu2: cleaned meterMercy Health Lorain HospitalPhencyclidine Screen Ql (U)Ordered By: Rafiq Bahena on 11-21-2021 Phencyclidine Ql (U)NegativeNegativeMercy Health Lorain HospitalPlatelet mean volume Auto (Bld) [Entitic vol]Ordered By: Rafiq Bahena on 11-21-2021 Platelet mean volume (Bld) [Entitic vol]9.6 fL6.3-10.7FSamaritan HospitalPlatelets Auto (Bld) [#/Vol]Ordered By: Rafiq Bahena on 11-21-2021 Platelets (Bld) [#/Vol]140 10*3/cX135-366UiuomewxiMercy Health Lorain Hospital Protein Auto test strip (U) [Mass/Vol]Ordered By: Rafiq Bahena on 11-21-2021 Protein (U) [Mass/Vol]NegativeNegativeMercy Health Lorain HospitalProtein [Mass/volume] in Serum or PlasmaOrdered By: Rafiq Bahena on 98-63-5727Jispuih [Mass/Vol]5.5 g/dL6.1-7.9[facility] HospitalRBC Auto (Bld) [#/Vol] Ordered By: Rafiq Bahena on 01-46-5347QYI (Bld) [#/Vol]4.31 10*6/uL3.60-5.00 [facility] Centererum or plasma alanine aminotransferase measurement without P-5'-P (enzymatic activiOrdered By: Rafiq Bahena on 71-26-4012WSP No additional P-5'-P [Catalytic activity/Vol]17 U/D05-54SzxcipnenBarney Children's Medical Centererum or plasma albumin/globulin mass ratioOrdered By: Rafiq Bahena on 83-85-9668Ttohhez/Globulin [Mass ratio]1.6 {ratio}[facility] Centererum or plasma alkaline phosphatase measurement (enzymatic activity/volume)Ordered By: Rafiq Bahena on 84-36-5464ZXL [Catalytic activity/Vol]74 U/Q09-49CpywhzpcoBarney Children's Medical Centererum or plasma anion gap determinationOrdered By: Rafiq Bahena on 58-49-1689Xdbwp gap [Moles/Vol] 14.6 mmol/L6.0-15.0[facility] Centererum or plasma aspartate aminotransferase measurement (enzymatic activity/volume)Ordered By: Rafiq Bahena on 03-93-1666ETC [Catalytic activity/Vol]19 U/K85-87XnqenrlryBarney Children's Medical Centererum or plasma calcium measurement (mass/volume)Ordered By: Rafiq Bahena on 22-10-0388Sziempm [Mass/Vol]9.1 mg/dL8.2-10.2FVan Wert County Hospitalerum or plasma chloride measurement (moles/volume)Ordered By: Rafiq Bahena on 44-92-3042Hzgokuhy [Moles/Vol]107 mmol/B66-880DhhrgqoujBarney Children's Medical Centererum or plasma ethanol measurement (mass/volume)Ordered By: Rafiq Bahena on 89-55-6022Akpyodr [Mass/Vol]mg/dLMercy Health Lorain HospitalEthanol [Mass/Vol]TNPMercy Health Lorain HospitalComment on above: Test not performedSerum or plasma glucose measurement (mass/volume)Ordered By: Rafiq Bahena on 12-44-6278Wgaymyd [Mass/Vol]124 mg/bJ71-747AfapnqhthMercy Health Lorain HospitalComment on above:ADA recommended reference rangeRandom Glucose Reference Range is dependent on time and content of last meal. Glucose of more than 200 mg/dL in a nonstressed, ambulatory subject supports the diagnosisof Diabetes Mellitus.Serum or plasma potassium measurement (moles/volume)Ordered By: Rafiq Bahena on 85-34-7854Hbxidiwmy [Moles/Vol]3.1 mmol/L3.5-5.1FVan Wert County Hospitalerum or plasma sodium measurement (moles/volume)Ordered By: Rafiq Bahena on 47-00-6008Agnkaw [Moles/Vol]142 mmol/V251-469VvyrsqwkaBarney Children's Medical Centererum or plasma total bilirubin measurement (mass/volume) Ordered By: Rafiq Bahena on 50-11-8241Vdzpmzirj [Mass/Vol]0.3 mg/dL0.3-1.2 [facility] Centererum or plasma total carbon dioxide measurement (moles/volume)Ordered By: Rafiq Bahena on 18-11-3143UC0 [Moles/Vol] 23.5 mmol/L22.0-30.0[facility] Centererum or plasma urea nitrogen measurement (mass/volume)Ordered By: Rafiq Bahena on 44-08-6844Sufw nitrogen [Mass/Vol]49 mg/dL9-23[facility] Medical Centerpecific gravity Auto test strip (U) [Rel density]Ordered By: Rafiq Bahena on 11-21-2021 Specific gravity (U) [Rel density]1.0101.001-1.030[facility] Medical Centerquamous epithelial cells detection in urine sediment by light microscopy Ordered By: Rafiq Bahena on 25-70-1928Rzybucpgqc cells.squamous LM Ql (Urine sed)1-2 [HPF]0-2FSamaritan HospitalTSH DL <= 0.005 mIU/L QnOrdered By: Rafiq Bahena on 39-31-7492KCR Qn2.40 m[IU]/L0.45-5.33[facility] HospitalThyroxine (T4) free [Mass/volume] in Serum or PlasmaOrdered By: Rafiq Bahena on 68-50-4691Htwa T4 [Mass/Vol]0.68 ng/dL0.61-1.12[facility] HospitalTroponin I.cardiac [Mass/volume] in Serum or Plasma by High sensitivity methodOrdered By: Rafiq Bahena on 51-82-5935Jhipdgga I.cardiac High sensitivity method [Mass/Vol]6 pg/mL0-15[facility] Urine bacteria detection by automated methodOrdered By: Rafiq Bahena on 96-46-9091Qhtnmwur Auto Ql (U)2+None SeenMercy Health Lorain HospitalUrine clarity by refractometry automatedOrdered By: Rafiq Bahena on 40-56-3983Ortjbqh Refractometry automated (U)ClearClearFSamaritan HospitalUrine cocaine detectionOrdered By: Rafiq Bahena on 34-22-1729Nsbfztl Ql (U)Negative NegativeMercy Health Lorain HospitalUrine glucose measurement by automated test strip (mass/volume)Ordered By: Rafiq Bahena on 44-81-0391Lhmeukd Auto test strip (U) [Mass/Vol]Normal mg/dLNormalMercy Health Lorain HospitalUrine hemoglobin detection by automated test stripOrdered By: Rafiq Bahena on 45-13-8751Fzfytyfxzp Auto test strip Ql (U)NegativeNegativeMercy Health Lorain HospitalUrine leukocyte esterase detection by automated test stripOrdered By: Rafiq Bahena on 96-69-1051Tmkhmswtl esterase Auto test strip Ql (U)1+ NegativeMercy Health Lorain HospitalUrobilinogen Auto test strip (U) [Mass/Vol]Ordered By: Rafiq Bahena on 45-35-6170Qovbgxldnhmx (U) [Mass/Vol] Normal mg/dLNormalMercy Health Lorain HospitalpH Auto test strip (U)Ordered By: Rafiq Bahena on 17-34-9486rW (U)5.5 [pH]5.0-9.0[facility] HospitalCBC AUTO DIFFon 41-19-6931EEWN #0.1 103/ulNormal0.0-0.1[facility] HospitalComment on above:Performed By: #### CBC #### [facility] [address] [place] [address] Dr. Grzegorz WangBasophils/100 WBC (Bld)0.6 %Normal0.2-2.0[facility] Comment on above:Performed By: #### CBC #### [facility] [address] [address] [address] Grzegorz Tellez #0.4 103/ulNormal0.0-0.7The [facility] HospitalComment on above: Performed By: #### CBC #### [facility] [address] [place] [address] Dr. Grzegorz Reisosinophils/100 WBC (Bld)5.0 %Normal0.9-7.0[facility] Comment on above:Performed By: #### CBC #### [facility] [address] [address] [address] Grzegorz Reisrythrocyte distribution width (RBC) [Ratio]18.6 %Critically high 11.0-15.0[facility] HospitalComment on above:Performed By: #### CBC #### [facility] [address] [place] [address] Dr. Grzegorz WangHematocrit (Bld) [Volume fraction]35.7 %Critically low36.0-48.[address] [facility] HospitalComment on above:Performed By: #### CBC #### [facility] [address] [address] [address] Grzegorz WangHemoglobin (Bld) [Mass/Vol]11.2 g/dLCritically low12.0-16.0[facility] HospitalComment on above:Performed By: #### CBC #### [facility] [address] [place] [address] Dr. Grzegorz Barbosa #0.04 10e3/ulCritically high0.00-0.03[facility] Comment on above:Performed By: #### CBC #### [facility] [address] [place] [address] Dr. Grzegorz Barbosa %0.5 %Normal0.0-0.5[facility] HospitalComment on above: Performed By: #### CBC #### [facility] [address] [place] [address] Dr. Grzegorz Soriano #1.9 103/ulNormal1.2-3.8The [facility] HospitalComment on above:Performed By: #### CBC #### [facility] [address] [place] [address] Dr. Grzegorz Wilkinshocytes/100 WBC (Bld)22.2 %Jfyvzl03.5-60.0The [facility] HospitalComment on above:Performed By: #### CBC #### [facility] [address] [place] [address] Dr. Grzegorz AriasUAL DIFF REQNONormalThe [facility] HospitalComment on above: Performed By: #### CBC #### [facility] [address] [place] [address] Dr. Grzegorz Finley (RBC) [Entitic mass]26.4 pgCritically low26.7-34.0The [facility] HospitalComment on above:Performed By: #### CBC #### [facility] [address] [place] [address] Dr. Grzegorz Finley (RBC) [Mass/Vol]31.4 g/kNEyojyn55.9-35.2The [facility] HospitalComment on above:Performed By: #### CBC #### [facility] [address] [place] [address] Dr. Grzegorz FilneyV (RBC) [Entitic vol]84.2 aSUtpxhc17.0-99.0The [facility] on above:Performed By: #### CBC #### [facility] [address] [place] [address] Dr. Grzegorz Wild #0.8 103/ulNormal0.3-0.8The [facility] HospitalComment on above:Performed By: #### CBC #### [facility] [address] [place] [address] Dr. Grzegorz Lemusocytes/100 WBC (Bld)10.0 %Normal1.7-12.0The [facility] Comment on above:Performed By: #### CBC #### [facility] [address] [place] [address] Dr. Grzegorz Parada #5.2 103/ulNormal1.4-6.5The [facility] HospitalComment on above:Performed By: #### CBC #### [facility] [address] [place] [address] Dr. Grzegorz Omerutrophils/100 WBC (Bld)61.7 %Bmmowj53.0-75.0The [facility] Hospitalment on above:Performed By: #### CBC #### [facility] [address] [place] [address] Dr. Grzegorz Corteslet mean volume (Bld) [Entitic vol]11.8 fLNormal9.5-13.5The [facility] HospitalComment on above:Performed By: #### CBC #### [facility] [address] [place] [address] Dr. Grzegorz WangPLT219 103/[id number] [facility] HospitalComment on above: Performed By: #### CBC #### [facility] [address] [place] [address] Dr. Grzegorz WangRBC4.24 106/ulNormal4.20-5.40The [facility] HospitalComment on above:Performed By: #### CBC #### [facility] [address] [place] [address] Dr. Grzegorz Ardon8.4 103/ulNormal4.0-11.0The [facility] HospitalComment on above: Performed By: #### CBC #### [facility] [address] [place] [address] Dr. Grzegorz Vaca LEUKOREDUCEDon [id number] and Rh group Nom (Bld)Cross Match Result Compatible Unit Blood Type O Pos Unit Number [id number] Status Information Transfused Product ID Red Blood Cells Product Code [id number] Cross Match Result Compatible Blood Bank Notes CALLED SARATH GLYNN RN ON [facility] 10/17/21 @ 0850 Unit Blood Type O Neg Unit Number [id number] Status Information Transfused Product ID Red Blood Cells Product Code [id number]. Francis HospitalComment on above:Performed By: #### CBC #### [facility] [address] [place] [address] Dr. Grzegorz New and Rh group Nom (Bld)Cross Match Result Compatible Unit Blood Type O Neg Unit Number [id number] Status Information Transfused Product ID Red Blood Cells Product Code [id number] Cross Match Result Compatible Unit Blood Type O Neg Unit Number [id number] Status Information Transfused Product ID Red Blood Cells Product Code [id number]. Francis HospitalComment on above:Performed By: #### CBC #### [facility] [address] [place] [address] Dr. Grzegorz Hurley AUTO DIFFon [id number] #0.0 103/ulNormal0.0-0.1The [facility] HospitalComment on above:Performed By: #### CBC #### [facility] [address] [place] [address] Dr. Grzegorz Husseinphils/100 WBC (Bld)0.7 %Normal0.2-2.0The [facility] Comment on above:Performed By: #### CBC #### [facility] [address] [place] [address] Dr. Grzegorz Tellez #0.2 103/ulNormal0.0-0.7The [facility] HospitalComment on above: Performed By: #### CBC #### [facility] [address] [place] [address] Dr. Grzegorz Reisosinophils/100 WBC (Bld)2.9 %Normal0.9-7.0The [facility] Comment on above:Performed By: #### CBC #### [facility] [address] [place] [address] Dr. Grzegorz Reisrythrocyte distribution width (RBC) [Ratio]17.8 %Critically high 11.0-15.0The [facility] HospitalComment on above:Performed By: #### CBC #### [facility] [address] [place] [address] Dr. Grzegorz WangHematocrit (Bld) [Volume fraction]30.1 %Critically low36.0-48.[address] [facility] HospitalComment on above:Performed By: #### CBC #### [facility] [address] [place] [address] Dr. Grzegorz WangHemoglobin (Bld) [Mass/Vol]9.6 g/dLCritically low12.0-16.0The [facility] HospitalComment on above:Performed By: #### CBC #### [facility] [address] [place] [address] Dr. Grzegorz Barbosa #0.08 10e3/ulCritically high0.00-0.03The [facility] Comment on above:Performed By: #### CBC #### [facility] [address] [place] [address] Dr. Grzgeorz Barbosa %1.3 %Critically high0.0-0.5The [facility] HospitalComment on above:Performed By: #### CBC #### [facility] [address] [place] [address] Dr. Grzegorz Soriano #1.8 103/ulNormal1.2-3.8The [facility] HospitalComment on above:Performed By: #### CBC #### [facility] [address] [place] [address] Dr. Yilan ChangLymphocytes/100 WBC (Bld)29.4 %Gjvbum03.5-60.0The [facility] HospitalComment on above:Performed By: #### CBC #### [facility] [address] [place] [address] Dr. Grzegorz AriasUAL DIFF REQNONormalThe [facility] HospitalComment on above: Performed By: #### CBC #### [facility] [address] [place] [address] Dr. Grzegorz Finley (RBC) [Entitic mass]25.9 pgCritically low26.7-34.0The [facility] HospitalComment on above:Performed By: #### CBC #### [facility] [address] [place] [address] Dr. Grzegorz Finley (RBC) [Mass/Vol]31.9 g/qQVnsgjt20.9-35.2The [facility] HospitalComment on above:Performed By: #### CBC #### [facility] [address] [place] [address] Dr. Grzegorz Finley (RBC) [Entitic vol]81.4 qAZogawx58.0-99.0The [facility] HospitalComment on above:Performed By: #### CBC #### [facility] [address] [place] [address] Dr. Grzegorz Wild #0.7 103/ulNormal0.3-0.8The [facility] HospitalComment on above:Performed By: #### CBC #### [facility] [address] [place] [address] Dr. Grzegorz Lemusocytes/100 WBC (Bld)11.9 %Normal1.7-12.0The [facility] Comment on above:Performed By: #### CBC #### [facility] [address] [place] [address] Dr. Grzegorz Parada #3.3 103/ulNormal1.4-6.5The [facility] HospitalComment on above:Performed By: #### CBC #### [facility] [address] [place] [address] Dr. Grzegorz Omerutrophils/100 WBC (Bld)53.8 %Xbknuh64.0-75.0The [facility] HospitalComment on above:Performed By: #### CBC #### [facility] [address] [address] [address] Grzegorz WangPlatelet mean volume (Bld) [Entitic vol]10.5 fLNormal9.5-13.5The [facility] HospitalComment on above:Performed By: #### CBC #### [facility] [address] [address] [address] Grzegorz WangPLT206 103/okKrfwww481-116Pli [facility] HospitalComment on above: Performed By: #### CBC #### [facility] [address] [place] [address] Dr. Grzegorz WangRBC3.70 106/ulCritically low4.20-5.40The [facility] HospitalComment on above:Performed By: #### CBC #### [facility] [address] [place] [address] Dr. Grzegorz WangWBC6.1 103/ulNormal4.0-11.0The [facility] HospitalComment on above: Performed By: #### CBC #### [facility] [address] [place] [address] Dr. Grzegorz WangPROF CHEM 8 (BAS METB)on [id number] gap [Moles/Vol]9.6 mmol/LNormalThe [facility] HospitalComment on above:Performed By: #### CBC #### [facility] [address] [place] [address] Dr. Grzegorz WangCalcium [Mass/Vol]8.5 mg/dLNormal8.5-10.1The [facility] Comment on above:Performed By: #### CBC #### [facility] [address] [place] [address] Dr. Grzegorz WangChloride [Moles/Vol]113 mmol/LCritically cjga84-976Uwk [facility] HospitalComment on above:Performed By: #### CBC #### [facility] [address] [address] [address] Grzegorz WangCO2 [Moles/Vol]26.6 mmol/AXbwgxa37.0-32.0The [facility] Comment on above:Performed By: #### CBC #### [facility] [address] [address] [address] Grzegorz WangCreatinine [Mass/Vol]0.94 mg/dLNormal0.55-1.02The [facility] HospitalComment on above:Performed By: #### CBC #### [facility] [address] [address] [address] Lantigua ChangEGFR-AF LAO>60Normal>=60The [facility] HospitalCommymichigan medical center clare on above:Performed By: #### CBC #### [facility] [address] [address] [address] Grzegorz ReisGFR-NON AF PMCTJQYX04 mL/min/1.52e9Bwcesfyico low>=60The [facility] HospitalComment on above:Performed By: #### CBC #### [facility] [address] [address] [address] Grzegorz WangGlucose [Mass/Vol]97 mg/nYDotmfb85-735Erg [facility] Comment on above:Performed By: #### CBC #### [facility] [address] [address] [address] Grzegorz WangPotassium [Moles/Vol]3.2 mmol/LCritically low3.5-5.1The [facility] HospitalComment on above:Performed By: #### CBC #### [facility] [address] [address] [address] Grzegorz WangSodium [Moles/Vol]146 mmol/LCritically zzfc112-146Uvy [facility] HospitalComment on above:Performed By: #### CBC #### [facility] [address] [address] [address] Grzegorz WangUrea nitrogen [Mass/Vol]38.0 mg/dLCritically high7.0-18.0The [facility] HospitalComment on above:Performed By: #### CBC #### [facility] [address] [address] [address] Grzegorz WangUrea nitrogen/Creatinine [Mass ratio]40.4 mg/mgNormalThe [facility] HospitalComment on above:Performed By: #### CBC #### [facility] [address] [address] [address] Grzegorz BaezC AUTO DIFFon [phone] #0.1 103/ulNormal0.0-0.1The [facility] HospitalComment on above:Performed By: #### CBC #### [facility] [address] [place] [address] Dr. Grzegorz WangBasophils/100 WBC (Bld)0.9 %Normal0.2-2.0 Comment on above:Performed By: #### CBC #### [facility] [address] [place] [address] Dr. Grzegorz ReisO #0.2 103/ulNormal0.0-0.7The [facility] HospitalComment on above: Performed By: #### CBC #### [facility] [address] [place] [address] Dr. Grzegorz Reisosinophils/100 WBC (Bld)3.1 %Normal0.9-7.0 Comment on above:Performed By: #### CBC #### [facility] [address] [place] [address] Dr. Grzegorz Reisrythrocyte distribution width (RBC) [Ratio]17.6 %Critically high 11.0-15.0The [facility] HospitalComment on above:Performed By: #### CBC #### [facility] [address] [place] [address] Dr. Grzegorz WangHematocrit (Bld) [Volume fraction]35.7 %Critically low36.0-48.[address] [facility] HospitalComment on above:Performed By: #### CBC #### [facility] [address] [place] [address] Dr. Grzegorz WangHemoglobin (Bld) [Mass/Vol]11.5 g/dLCritically low12.0-16.0The [facility] HospitalComment on above:Result Comment: rcvd. bloodPerformed By: #### CBC #### [facility] [address] [place] [address] Dr. Grzegorz Barbosa #0.18 10e3/ulCritically high0.00-0.03The [facility] Comment on above:Performed By: #### CBC #### [facility] [address] [place] [address] Dr. Grzegorz Barbosa %2.6 %Critically high0.0-0.5The [facility] HospitalComment [facility] above:Performed By: #### CBC #### [facility] [address] [place] [address] Dr. Grzegorz Soriano #1.5 103/ulNormal1.2-3.8The [facility] HospitalComment on above:Performed By: #### CBC #### [facility] [address] [place] [address] Dr. Grzegorz Wilkinshocytes/100 WBC (Bld)21.4 %Fabqdn00.5-60.0The [facility] HospitalComment on above:Performed By: #### CBC #### [facility] [address] [place] [address] Dr. Grzegorz Bowers DIFF REQNONormalThe [facility] HospitalComment on above: Performed By: #### CBC #### [facility] [address] [place] [address] Dr. Grzegorz Finley (RBC) [Entitic mass]26.0 pgCritically low26.7-34.0The [facility] HospitalComment on above:Performed By: #### CBC #### [facility] [address] [place] [address] Dr. Grzegorz Finley (RBC) [Mass/Vol]32.2 g/oEKliouo51.9-35.2The [facility] HospitalComment on above:Performed By: #### CBC #### [facility] [address] [place] [address] Dr. Grzegorz FinleyV (RBC) [Entitic vol]80.6 fLCritically low81.0-99.0The [facility] HospitalComment on above:Performed By: #### CBC #### [facility] [address] [place] [address] Dr. Grzegorz Wild #0.7 103/ulNormal0.3-0.8The [facility] HospitalComment on above:Performed By: #### CBC #### [facility] [address] [place] [address] Dr. Grzegorz Lemusocytes/100 WBC (Bld)10.8 %Normal1.7-12.0The [facility] Comment on above:Performed By: #### CBC #### [facility] [address] [place] [address] Dr. Grzegorz Parada #4.2 103/ulNormal1.4-6.5The [facility] HospitalComment on above:Performed By: #### CBC #### [facility] [address] [place] [address] Dr. Grzegorz Omerutrophils/100 WBC (Bld)61.2 %Kxcwtu47.0-75.0The [facility] HospitalComment on above:Performed By: #### CBC #### [facility] [address] [place] [address] Dr. Grzegorz Kwan mean volume (Bld) [Entitic vol]9.9 fLNormal9.5-13.5The [facility] HospitalComment on above:Performed By: #### CBC #### [facility] [address] [place] [address] Dr. Grzegorz ArriolaT228 103/exTzuxwx874-351Sdk [facility] HospitalComment on above: Performed By: #### CBC #### [facility] [address] [place] [address] Dr. Grzegorz WangRBC4.43 106/ulNormal4.20-5.40The [facility] HospitalComment on above:Performed By: #### CBC #### [facility] [address] [place] [address] Dr. Grzegorz WangWBC6.9 103/ulNormal4.0-11.0The [facility] HospitalComment on above: Performed By: #### CBC #### [facility] [address] [place] [address] Dr. Grzegorz TorresSO #0.0 103/ulNormal0.0-0.1The [facility] HospitalComment on above:Performed By: #### CBC #### [facility] [address] [place] [address] Dr. Grzegorz WangBasophils/100 WBC (Bld)0.8 %Normal0.2-2.0The [facility] Comment on above:Performed By: #### CBC #### [facility] [address] [place] [address] Dr. Grzgeorz Tellez #0.1 103/ulNormal0.0-0.7The [facility] HospitalComment on above: Performed By: #### CBC #### [facility] [address] [place] [address] Dr. Grzegorz Reisosinophils/100 WBC (Bld)2.4 %Normal0.9-7.0 Comment on above:Performed By: #### CBC #### [facility] [address] [place] [address] Dr. Grzegorz Reisrythrocyte distribution width (RBC) [Ratio]16.8 %Critically high 11.0-15.0Comment on above:Performed By: #### CBC #### [facility] [address] [place] [address] Dr. Grzegorz WangHematocrit (Bld) [Volume fraction]23.2 %Critically low36.0-48.[address] [facility] HospitalComment on above:Performed By: #### CBC #### [facility] [address] [place] [address] Dr. Grzegorz WangHemoglobin (Bld) [Mass/Vol]7.4 g/dLCritically low12.0-16.0The [facility] HospitalComment on above:Performed By: #### CBC #### [facility] [address] [address] [address] Grzegorz Barbosa #0.05 10e3/ulCritically high0.00-0.03The [facility] Comment on above:Performed By: #### CBC #### [facility] [address] [place] [address] Dr. Grzegorz Barbosa %1.0 %Critically high0.0-0.5The [facility] HospitalComment on above:Performed By: #### CBC #### [facility] [address] [address] [address] Grzegorz Soriano #1.4 103/ulNormal1.2-3.8The [facility] HospitalComment on above:Performed By: #### CBC #### [facility] [address] [place] [address] Dr. Grzegorz Wilkinshocytes/100 WBC (Bld)27.8 %Aumvox95.5-60.0The [facility] HospitalComment on above:Performed By: #### CBC #### [facility] [address] [place] [address] Dr. Grzegorz AriasUAL DIFF REQNONormalThe [facility] HospitalComment on above: Performed By: #### CBC #### [facility] [address] [place] [address] Dr. Grzegorz Finley (RBC) [Entitic mass]25.6 pgCritically low26.7-34.0The [facility] HospitalComment on above:Performed By: #### CBC #### [facility] [address] [place] [address] Dr. Grzegorz Finley (RBC) [Mass/Vol]31.9 g/lRNoaqzd85.9-35.2The [facility] HospitalComment on above:Performed By: #### CBC #### [facility] [address] [place] [address] Dr. Grzegorz Finley (RBC) [Entitic vol]80.3 fLCritically low81.0-99.0The [facility] HospitalComment on above:Performed By: #### CBC #### [facility] [address] [address] [address] Grzegorz Wild #0.6 103/ulNormal0.3-0.8The [facility] HospitalComment on above:Performed By: #### CBC #### [facility] [address] [place] [address] Dr. Grzegorz Lemusocytes/100 WBC (Bld)11.6 %Normal1.7-12.0The [facility] Comment on above:Performed By: #### CBC #### [facility] [address] [place] [address] Dr. Grzegorz Parada #2.8 103/ulNormal1.4-6.5The [facility] HospitalComment on above:Performed By: #### CBC #### [facility] [address] [place] [address] Dr. Grzegorz Omerutrophils/100 WBC (Bld)56.4 %Llzrrj92.0-75.0The [facility] HospitalComment on above:Performed By: #### CBC #### [facility] [address] [place] [address] Dr. Grzegorz Corteslet mean volume (Bld) [Entitic vol]10.0 fLNormal9.5-13.5The [facility] HospitalComment on above:Performed By: #### CBC #### [facility] [address] [place] [address] Dr. Grzegorz WangPLT193 103/iqOkdfye054-569Ocq [facility] HospitalComment on above: Performed By: #### CBC #### [facility] [address] [place] [address] Dr. Grzegorz WangRBC2.89 106/ulCritically low4.20-5.40The [facility] HospitalComment on above:Performed By: #### CBC #### [facility] [address] [place] [address] Dr. Grzegorz WangWBC4.9 103/ulNormal4.0-11.0The [facility] HospitalComment on above: Performed By: #### CBC #### [facility] [address] [address] [address] Grzegorz WangPROF CHEM 8 (BAS METB)on 12-43-9250Jjzmm gap [Moles/Vol]11.4 mmol/LNormalThe [facility] HospitalComment on above:Performed By: #### PALOMA, LIPA #### [facility] [address] [address] [address] Grzegorz WangCalcium [Mass/Vol]8.3 mg/dLCritically low8.5-10.1The [facility] HospitalComment on above:Performed By: #### PALOMA, LIPA #### [facility] [address] [place] [address] Dr. Grzegorz WangChloride [Moles/Vol]116 mmol/LCritically cuhh93-950Quh [facility] HospitalComment on above:Performed By: #### PALOMA, LIPA #### [facility] [address] [place] [address] Dr. Grzegorz WangCO2 [Moles/Vol]21.1 mmol/WTfbbcd61.0-32.0The [facility] Comment on above:Performed By: #### PALOMA, LIPA #### [facility] [address] [address] [address] Grzegorz WangCreatinine [Mass/Vol]1.07 mg/dLCritically high0.55-1.02The [facility] HospitalComment on above:Performed By: #### PALOMA, LIPA #### [facility] [address] [place] [address] Dr. Grzegorz ReisGFR-AF LAO>60Normal>=60The [facility] HospitalComment on above:Performed By: #### PALOMA, LIPA #### [facility] [address] [address] [address] Grzegorz ReisGFR-NON AF TFKAGRGG70 mL/min/1.04p3Qrdrmkayby low>=60The [facility] HospitalComment on above:Performed By: #### PALOMA, LIPA #### [facility] [address] [place] [address] Dr. Grzegorz WangGlucose [Mass/Vol]90 mg/pRLdquhn52-483[facility] Comment on above:Performed By: #### PALOMA, LIPA #### [facility] [address] [place] [address] Dr. Grzegorz WangPotassium [Moles/Vol]3.5 mmol/LNormal3.5-5.1 Comment on above:Performed By: #### PALOMA, LIPA #### [facility] [address] [place] [address] Dr. Grzegorz WangSodium [Moles/Vol]145 mmol/IQdaeil292-211Oug Comment on above:Performed By: #### PALOMA, LIPA #### [facility] [address] [place] [address] Dr. Grzegorz WangUrea nitrogen [Mass/Vol]59.0 mg/dLCritically high7.0-18.0The [facility] HospitalComment on above:Performed By: #### PALOMA, LIPA #### [facility] [address] [place] [address] Dr. Grzegorz Padron nitrogen/Creatinine [Mass ratio]55.1 mg/mgNormalThe [facility] HospitalComment on above:Performed By: #### PALOMA, LIPA #### [facility] [address] [place] [address] Dr. Grzegorz WangAMYLASEon 25-79-4362Ktdbytu [Catalytic activity/Vol]41 U/LNormal 25-115The [facility] HospitalComment on above:Performed By: #### PALOMA, LIPA #### [facility] [address] [place] [address] Dr. Grzegorz Hurley AUTO DIFFon [id number] #0.1 103/ulNormal0.0-0.1The [facility] HospitalComment on above:Performed By: #### PALOMA, LIPA #### [facility] [address] [place] [address] Dr. Grzegorz WangBasophils/100 WBC (Bld)0.7 %Normal0.2-2.0 Comment on above:Performed By: #### PALOMA, LIPA #### [facility] [address] [place] [address] Dr. Grzegorz Tellez #0.2 103/ulNormal0.0-0.7The [facility] HospitalComment on above: Performed By: #### PALOMA, LIPA #### [facility] [address] [place] [address] Dr. Grzegorz Reisosinophils/100 WBC (Bld)2.4 %Normal0.9-7.0The [facility] Comment on above:Performed By: #### PALOMA, LIPA #### [facility] [address] [place] [address] Dr. Grzegorz Reisrythrocyte distribution width (RBC) [Ratio]17.1 %Critically high 11.0-15.0The [facility] HospitalComment on above:Performed By: #### PALOMA, LIPA #### [facility] [address] [place] [address] Dr. Grzegorz WangHematocrit (Bld) [Volume fraction]26.0 %Critically low36.0-48.[address] [facility] HospitalComment on above:Performed By: #### PALOMA, LIPA #### [facility] [address] [place] [address] Dr. Grzegorz WangHemoglobin (Bld) [Mass/Vol]8.4 g/dLCritically low12.0-16.0The [facility] HospitalComment on above:Performed By: #### PALOMA, LIPA #### [facility] [address] [place] [address] Dr. Grzegorz Barbosa #0.03 10e3/ulNormal0.00-0.03The [facility] HospitalComment on above:Performed By: #### PALOMA, LIPA #### [facility] [address] [place] [address] Dr. Grzegorz Barbosa %0.4 %Normal0.0-0.5The [facility] HospitalComment on above: Performed By: #### PALOMA, LIPA #### [facility] [address] [place] [address] Dr. Yilan ChangLYMPH #1.9 103/ulNormal1.2-3.8The [facility] HospitalComment on above:Performed By: #### PALOMA, LIPA #### [facility] [address] [place] [address] Dr. Grzegorz Finleymphocytes/100 WBC (Bld)27.3 %Ygwryp26.5-60.0The [facility] HospitalComment on above:Performed By: #### PALOMA, LIPA #### [facility] [address] [place] [address] Dr. Grzegorz AriasOHIOHEALTH [facility] DIFF REQNONormalThe [facility] HospitalComment on above: Performed By: #### PALOMA, LIPA #### [facility] [address] [place] [address] Dr. Grzegorz Finley (RBC) [Entitic mass]26.0 pgCritically low26.7-34.0The [facility] HospitalComment on above:Performed By: #### PALOMA, LIPA #### [facility] [address] [place] [address] Dr. Grzegorz Finley (RBC) [Mass/Vol]32.3 g/bRBciqsm38.9-35.2The [facility] HospitalComment on above:Performed By: #### PALOMA, LIPA #### [facility] [address] [place] [address] Dr. Grzegorz Finley (RBC) [Entitic vol]80.5 fLCritically low81.0-99.0The [facility] HospitalComment on above:Performed By: #### PALOMA, LIPA #### [facility] [address] [place] [address] Dr. Grzegorz Wild #0.7 103/ulNormal0.3-0.8The [facility] HospitalComment on above:Performed By: #### PALOMA, LIPA #### [facility] [address] [place] [address] Dr. Grzegorz Lemusocytes/100 WBC (Bld)10.5 %Normal1.7-12.0The [facility] Comment on above:Performed By: #### PALOMA, LIPA #### [facility] [address] [place] [address] Dr. Grzegorz Parada #4.1 103/ulNormal1.4-6.5The [facility] HospitalComment on above:Performed By: #### PALOMA, LIPA #### [facility] [address] [place] [address] Dr. Grzegorz Omerutrophils/100 WBC (Bld)58.7 %Udxwsx32.0-75.0The [facility] HospitalComment on above:Performed By: #### PALOMA, LIPA #### [facility] [address] [place] [address] Dr. Grzegorz Corteslet mean volume (Bld) [Entitic vol]10.4 fLNormal9.5-13.5The [facility] HospitalComment on above:Performed By: #### PALOMA, LIPA #### [facility] [address] [place] [address] Dr. Grzegorz WangPLT217 103/ujRpomhb619-648Ixo [facility] HospitalComment on above: Performed By: #### PALOMA, LIPA #### [facility] [address] [place] [address] Dr. Grzegorz WangRBC3.23 106/ulCritically low4.20-5.40The [facility] on above:Performed By: #### PALOMA, LIPA #### [facility] [address] [place] [address] Dr. Grzegorz WangWBC7.1 103/ulNormal4.0-11.0The [facility] HospitalComment on above: Performed By: #### PALOMA, LIPA #### [facility] [address] [place] [address] Dr. Grzegorz TorresSO #0.0 103/ulNormal0.0-0.1The [facility] HospitalCommymichigan medical center clare on above:Performed By: #### CBC #### [facility] [address] [place] [address] Dr. Grzegorz Torressophils/100 WBC (Bld)0.5 %Normal0.2-2.0The [facility] Comment on above:Performed By: #### CBC #### [facility] [address] [place] [address] Dr. Grzegorz Tellez #0.1 103/ulNormal0.0-0.7The [facility] HospitalComment on above: Performed By: #### CBC #### [facility] [address] [place] [address] Dr. Grzegorz Reisosinophils/100 WBC (Bld)0.8 %Critically low0.9-7.0The [facility] HospitalComment on above:Performed By: #### CBC #### [facility] [address] [place] [address] Dr. Grzegorz Reisrythrocyte distribution width (RBC) [Ratio]16.8 %Critically high 11.0-15.0Comment on above:Performed By: #### CBC #### [facility] [address] [place] [address] Dr. Grzegorz WangHematocrit (Bld) [Volume fraction]19.5 %Critically low36.0-48.[address] [facility] HospitalComment on above:Performed By: #### CBC #### [facility] [address] [place] [address] Dr. Grzegorz WangHemoglobin (Bld) [Mass/Vol]6.0 g/dLCritically low12.0-16.0Comment on above:Result Comment: repeatedPerformed By: #### CBC #### [facility] [address] [place] [address] Dr. Grzegorz Barbosa #0.05 10e3/ulCritically high0.00-0.03 Comment on above:Performed By: #### CBC #### [facility] [address] [place] [address] Dr. Grzegorz Barbosa %0.6 %Critically high0.0-0.5The [facility] HospitalComment on above:Performed By: #### CBC #### [facility] [address] [place] [address] Dr. Grzegorz Soriano #1.8 103/ulNormal1.2-3.8The [facility] HospitalComment on above:Performed By: #### CBC #### [facility] [address] [place] [address] Dr. Grzegorz Wilkinshocytes/100 WBC (Bld)21.6 %Najgxg45.5-60.0The [facility] HospitalComment on above:Performed By: #### CBC #### [facility] [address] [place] [address] Dr. Grzegorz Bowers DIFF REQNONormalThe [facility] HospitalComment on above: Performed By: #### CBC #### [facility] [address] [place] [address] Dr. Grzegorz Delaney (RBC) [Entitic mass]23.4 pgCritically low26.7-34.0The [facility] HospitalComment on above:Performed By: #### CBC #### [facility] [address] [place] [address] Dr. Grzegorz Finley (RBC) [Mass/Vol]30.6 g/cYFjoktg58.9-35.2The [facility] HospitalComment on above:Performed By: #### CBC #### [facility] [address] [place] [address] Dr. Grzegorz Finley (RBC) [Entitic vol]76.6 fLCritically low81.0-99.0The [facility] HospitalComment on above:Performed By: #### CBC #### [facility] [address] [place] [address] Dr. Grzegorz Wild #0.6 103/ulNormal0.3-0.8The [facility] HospitalComment on above:Performed By: #### CBC #### [facility] [address] [place] [address] Dr. Grzegorz Lemusocytes/100 WBC (Bld)7.3 %Normal1.7-12.0The [facility] Comment on above:Performed By: #### CBC #### [facility] [address] [place] [address] Dr. Grzegorz OmerUT #5.9 103/ulNormal1.4-6.5The [facility] HospitalComment on above:Performed By: #### CBC #### [facility] [address] [place] [address] Dr. Grzegorz Omerutrophils/100 WBC (Bld)69.2 %Frjylo96.0-75.0The [facility] HospitalComment on above:Performed By: #### CBC #### [facility] [address] [place] [address] Dr. Grzegorz WangPlatelet mean volume (Bld) [Entitic vol]10.5 fLNormal9.5-13.5The [facility] HospitalComment on above:Performed By: #### CBC #### [facility] [address] [place] [address] Dr. Grzegorz WangPLT288 103/nwKcytty003-576Vjr [facility] HospitalComment on above: Performed By: #### CBC #### [facility] [address] [place] [address] Dr. Grzegorz WangRBC2.52 106/ulCritically low4.20-5.40The [facility] HospitalComment on above:Performed By: #### CBC #### [facility] [address] [place] [address] Dr. Grzegorz WangWBC8.5 103/ulNormal4.0-11.0The [facility] HospitalComment on above: Performed By: #### CBC #### [facility] [address] [place] [address] Dr. Gzregorz WangCT ABD/PELVIS WO CONon [id number] ABD/PELVIS WO CONEXAMINATION: CT ABD/PELVIS WO CON, 10/16/2021 9:33 AM [...] Anastomotic sutures in the left hemiabdomen noted. Peritoneum/retroperitoneum: No significant finding. Lymph nodes: No significant finding. Vessels: Heavy atherosclerotic calcifications. Body wall: No significant finding. Reproductive: 3 cm right ovarian cyst. Bones: Mild L4-L5 anterolisthesis. IMPRESSION: No acute findings. 3 cm right ovarian cyst. Pelvic ultrasound is recommended to further characterize. Electronically authenticated by: LYNN OLSON Date: 2021-10-16 13:53NoDayton Children's HospitalCovid-19 PCR (CVDTB)on [id number]-CoV-2 (COVID-19) RNA SIOBHAN+probe Ql (Unsp spec)Not detectedNormalNOT DETECTED Comment on above:Result Comment: When diagnostic testing is negative, the [...] for this test is supported by the Turning Machine Set Up Operator of Health and Human Service's declaration that circumstances exist to justify the emergency use of in vitro diagnostics for the detection and/or diagnosis of the virus that causes COVID-19. This EUA will remain in effect for the duration of the COVID-19 declaration justifying emergency of IVDs, unless it is terminated or revoked by the FDA (after which the test may no longer be used).Performed By: #### ERUR #### [facility] [address] [address] [address] Grzegorz Ribeiro URINE PROFILEon [id number] Ql (U)NegativeNormal NEGATIVEComment on above:Performed By: #### PALOMA LIPA #### [facility] [address] [address] [address] Lantigua ChangClarity (U)CLEARNormalCLEARThe [facility] HospitalComment on above: Performed By: #### PALOMA, LIPA #### [facility] [address] [address] [address] Grzegorz Delvalle (U)LT. YELLOWNormalYELLOWComment on above:Performed By: #### PALOMA, LIPA #### [facility] [address] [address] [address] Grzegorz Dawson micrscopic examination will be performed if indicated. NormalThe [facility] HospitalComment on above:Performed By: #### PALOMA, LIPA #### [facility] [address] [address] [address] Grzegorz WangGlucose Ql (U)NegativeNormalNEGATIVEComment on above:Performed By: #### PALOMA, LIPA #### [facility] [address] [place] [address] Dr. Grzegorz WangHemoglobin Ql (U)SMALLAbnormalNEGATIVEWilson Memorial Hospital on above:Performed By: #### PALOMA, LIPA #### [facility] [address] [address] [address] Grzegorz WangKetones Ql (U)NegativeNormalNEGATIVEComment on above:Performed By: #### PALOMA, LIPA #### [facility] [address] [address] [address] Grzegorz WangLEUKOCYTESTRACEAbnormalNEGATIVEComment on above:Performed By: #### PALOMA, LIPA #### [facility] [address] [address] [address] Grzegorz WangNitrite Ql (U)NegativeNormalNEGATIVEComment on above:Performed By: #### PALOMA, LIPA #### [facility] [address] [address] [address] Grzegorz WangpH (U)5.5 [pH]Normal5-9Comment on above: Performed By: #### PALOMA, LIPA #### [facility] [address] [address] [address] Grzegorz WangSPEC GRAVITY1.517Fbaqaf4.005-<=1.025The [facility] HospitalComment on above:Performed By: #### PALOMA, LIPA #### [facility] [address] [place] [address] Dr. Grzegorz Jones PROTEINNegativeNormalNEGATIVE/ TRACEThe [facility] Comment on above:Performed By: #### PALOMA, LIPA #### [facility] [address] [place] [address] Dr. Grzegorz Durham MICRO INDINDICATEDNormalThe [facility] HospitalComment on above: Performed By: #### PALOMA, LIPA #### [facility] [address] [place] [address] Dr. Grzegorz Hsubilinogen Qn (U)0.2 {Lidya'U}/dLNormal0.2 - 1.0The [facility] HospitalComment on above:Performed By: #### PALOMA, LIPA #### [facility] [address] [place] [address] Dr. Grzegorz WangLIPASEon [id number] [Catalytic activity/Vol]77.0 U/LNormal 73.0-393.0The [facility] HospitalComment on above:Performed By: #### PALOMA, LIPA #### [facility] [address] [place] [address] Dr. Grzegorz Mayfield BLD IMMUNO SCREENon [id number] BLOODPositiveAbnormal NEGATIVEThe [facility] HospitalComment on above:Performed By: #### PALOMA, LIPA #### [facility] [address] [place] [address] Dr. Grzegorz WangPROF 14(COMP METB)on [id number] [Mass/Vol]3.4 g/dLNormal 3.4-5.0The [facility] HospitalComment on above:Performed By: #### CBC #### [facility] [address] [place] [address] Dr. Grzegorz WangAlbumin/Globulin [Mass ratio]1.2 {ratio}NormalThe [facility] HospitalComment on above:Performed By: #### CBC #### [facility] [address] [address] [address] Grzegorz CovarrubiasP [Catalytic activity/Vol]77 U/PQqqrhv14-158Rif [facility] HospitalComment on above:Performed By: #### CBC #### [facility] [address] [address] [address] Grzegorz CovarrubiasT [Catalytic activity/Vol]18 U/USjnafg58-71Rxp [facility] HospitalComment on above:Performed By: #### CBC #### [facility] [address] [place] [address] Dr. Grzegorz Ortegaon gap [Moles/Vol]15.3 mmol/LNormalThe [facility] Comment on above:Performed By: #### CBC #### [facility] [address] [place] [address] Dr. Grzegorz WnagAST [Catalytic activity/Vol]17 U/GIkdqpp93-41Jyj [facility] HospitalComment on above:Performed By: #### CBC #### [facility] [address] [place] [address] Dr. Grzegorz WangBilirubin [Mass/Vol]0.4 mg/dLNormal0.2-1.0The [facility] Comment on above:Performed By: #### CBC #### [facility] [address] [place] [address] Dr. Grzegorz WangCalcium [Mass/Vol]8.5 mg/dLNormal8.5-10.1 Comment on above:Performed By: #### CBC #### [facility] [address] [place] [address] Dr. Grzegorz WangChloride [Moles/Vol]104 mmol/JOayacz57-955Jfp [facility] Comment on above:Performed By: #### CBC #### [facility] [address] [place] [address] Dr. Grzegorz WangCO2 [Moles/Vol]21.2 mmol/HHjsvns15.0-32.0The [facility] Comment on above:Performed By: #### CBC #### [facility] [address] [place] [address] Dr. Grzegorz WangCreatinine [Mass/Vol]1.68 mg/dLCritically high0.55-1.02Comment on above:Performed By: #### CBC #### [facility] [address] [address] [address] Grzegorz ReisGFR-AF PZXAHETR74 mL/min/1.11q0Llkdeuzbyq low>=60The [facility] HospitalComment on above:Performed By: #### CBC #### [facility] [address] [address] [address] Grzegorz ReisGFR-NON AF YHCQWMBF53 mL/min/1.71u4Zokblsuemx low>=60The [facility] HospitalComment on above:Performed By: #### CBC #### [facility] [address] [address] [address] Grzegorz WangGlobulin (S) [Mass/Vol]2.8 g/dLNoalThAultman Alliance Community HospitalComment on above:Performed By: #### CBC #### [facility] [address] [address] [address] Grzegorz WangGlucose [Mass/Vol]101 mg/kPVwojoj71-421Pqw Comment on above:Performed By: #### CBC #### [facility] [address] [address] [address] Grzegorz WangPotassium [Moles/Vol]3.5 mmol/LNormal3.5-5.1 Comment on above:Performed By: #### CBC #### [facility] [address] [address] [address] Grzegorz WangProtein [Mass/Vol]6.2 g/dLCritically low6.4-8.2The [facility] HospitalComment on above:Performed By: #### CBC #### [facility] [address] [address] [address] Grzegorz WangSodium [Moles/Vol]137 mmol/LLexryr187-588Ban [facility] Comment on above:Performed By: #### CBC #### [facility] [address] [address] [address] Grzegorz Padron nitrogen [Mass/Vol]83.0 mg/dLCritically high7.0-18.0[facility] Centerment on above:Result Comment: repeatedPerformed By: #### CBC #### [facility] [address] [place] [address] Dr. Grzegorz Padron nitrogen/Creatinine [Mass ratio]49.4 mg/mgNoDayton Children's HospitalComment on above:Performed By: #### CBC #### [facility] [address] [place] [address] Dr. Grzegorz WangPROTIMEon [id number] Coag (PPP) [Relative time]0.99 {INR} NormalThe [facility] on above:Performed By: #### PT, PTT #### [facility] [address] [place] [address] Dr. Grzegorz Hercules GUIDELINESSEE BELOWSt. Francis HospitalComment on above:Result Comment: DESIRED INR: 2.0 - 3.0 CONDITIONS NOT LISTED BELOW 2.5 - 3.5 FOR PROSTHETIC HEART VALVE REPLACEMENT 2.5 - 3.5 RECURRENT THROMBOSIS Performed By: #### PT, PTT #### [facility] [address] [place] [address] Dr. Grzegorz Davis Coag (PPP) [Time]10.7 sNormal9.0-11.6The [facility] Comment on above:Performed By: #### PT, PTT #### [facility] [address] [place] [address] Dr. Grzegorz Aguilar [id number] Coag (Bld) [Time]23.5 yYntwyo07.3-36.2The [facility] Hospitalment on above:Performed By: #### PT, PTT #### [facility] [address] [place] [address] Dr. Grzegorz Solomon AND SCREENon [id number] AND SCREENNegativeSt. Francis HospitalCommymichigan medical center clare on above:Performed By: #### CBC #### [facility] [address] [place] [address] Dr. Grzegorz De Oliveira MICROSCOPIC ONLYon [id number] SEENNormalNONE SEENSelect Medical Specialty [facility] on above:Performed By: #### PALOMA, LIPA #### [facility] [address] [address] [address] Grzegorz Valentin identified Cx Nom (U)NOT INDICATEDNoalThAultman Alliance Community HospitalComment on above:Performed By: #### PALOMA, LIPA #### [facility] [address] [address] [address] Grzegorz Go SEENNormalNONE SEENCommymichigan medical center clare on above:Performed By: #### PALOMA, LIPA #### [facility] [address] [place] [address] Dr. Grzegorz Brenner LM Nom (Urine sed)NONE SEENNormalNONE SEENCommymichigan medical center clare on above:Performed By: #### PALOMA, LIPA #### [facility] [address] [address] [address] Lantigua ChangEpithelial cells LM Ql (Urine sed)RARENormalNONE SEEN /RARECommymichigan medical center clare on above:Performed By: #### PALOMA, LIPA #### [facility] [address] [address] [address] Grzegorz TubbsUSRHIANNON SEENNormalNONE SEENSelect [facility] on above:Performed By: #### PALOMA, LIPA #### [facility] [address] [address] [address] Grzegorz Eason SEENAbnormal0-2Commymichigan medical center clare on above: Performed By: #### PALOMA, LIPA #### [facility] [address] [place] [address] Dr. Grzegorz CardonaBCRHIANNON SEENNormalNONE SEENSelect Medical Specialty [facility] on above: Performed By: #### PALOMA, LIPA #### [facility] [address] [address] [address] Grzegorz Webb [id number] peptide B (Bld) [Mass/Vol]140.0 pg/mL Normal<=900.0Comment on above:Performed By: #### CBC #### [facility] [address] [place] [address] Dr. Grzegorz Navarrete BAMBI ADMITon [id number] [Catalytic activity/Vol]121 U/L Xilgkt18-835Dqh [facility] HospitalComment on above:Performed By: #### CBC #### [facility] [address] [place] [address] Dr. Grzegorz Waters.MB [Mass/Vol]2.44 ng/mLNormal<=3.60The [facility] Comment on above:Performed By: #### CBC #### [facility] [address] [place] [address] Dr. Grzegorz MehtaTROP9.8 pg/mLNormal4.0-51.3The [facility] HospitalComment on above:Result Comment: CUT-OFF POINTS HAVE BEEN ESTABLISHED BASED ON THE FOURTH UNIVERSAL DEFINITIONS OF MYOCARDIAL INFARCTION. THE UPPER REFERENCE LIMIT (URL) OF TROPONIN, DEFINED THE 99TH PERCENTILE OF cTnI DISTRIBUTION IN A REFERENCE POPULATION, HAS BEEN CONFIRMED THE DECISION THRESHOLD FOR [place] DIAGNOSIS.Performed By: #### CBC #### [facility] [address] [place] [address] Dr. Grzegorz QuinnO109 ng/mLCritically high9-82The [facility] HospitalCommymichigan medical center clare on above:Performed By: #### CBC #### [facility] [address] [place] [address] Dr. Grzegorz Hurley AUTO DIFFon [id number] #0.0 103/ulNormal0.0-0.1The [facility] HospitalComment on above:Performed By: #### CBC #### [facility] [address] [place] [address] Dr. Grzegorz Torressophils/100 WBC (Bld)0.5 %Normal0.2-2.0 Comment on above:Performed By: #### CBC #### [facility] [address] [place] [address] Dr. Grzegorz Tellez #0.1 103/ulNormal0.0-0.7The [facility] HospitalComment on above: Performed By: #### CBC #### [facility] [address] [place] [address] Dr. Grzegorz Reisosinophils/100 WBC (Bld)3.1 %Normal0.9-7.0The [facility] Comment on above:Performed By: #### CBC #### [facility] [address] [place] [address] Dr. Grzegorz Reisrythrocyte distribution width (RBC) [Ratio]16.0 %Critically high 11.0-15.0The [facility] HospitalComment on above:Performed By: #### CBC #### [facility] [address] [place] [address] Dr. Grzegorz WangHematocrit (Bld) [Volume fraction]32.0 %Critically low36.0-48.[address] [facility] HospitalComment on above:Performed By: #### CBC #### [facility] [address] [place] [address] Dr. Grzegorz WangHemoglobin (Bld) [Mass/Vol]10.1 g/dLCritically low12.0-16.0The [facility] HospitalComment on above:Performed By: #### CBC #### [facility] [address] [place] [address] Dr. Grzegorz Barbosa #0.01 10e3/ulNormal0.00-0.03The [facility] HospitalComment on above:Performed By: #### CBC #### [facility] [address] [place] [address] Dr. Grzegorz Barbosa %0.3 %Normal0.0-0.5The [facility] HospitalComment on above: Performed By: #### CBC #### [facility] [address] [place] [address] Dr. Grzegorz WilkinsH #1.7 103/ulNormal1.2-3.8The [facility] HospitalComment on above:Performed By: #### CBC #### [facility] [address] [place] [address] Dr. Grzegorz Finleymphocytes/100 WBC (Bld)43.1 %Wnbrfn39.5-60.0The [facility] HospitalComment on above:Performed By: #### CBC #### [facility] [address] [place] [address] Dr. Grzegorz Bowers DIFF REQNONormalThe [facility] HospitalComment on above: Performed By: #### CBC #### [facility] [address] [place] [address] Dr. Grzegorz Finley (RBC) [Entitic mass]23.9 pgCritically low26.7-34.0The [facility] HospitalComment on above:Performed By: #### CBC #### [facility] [address] [place] [address] Dr. Grzegorz Finley (RBC) [Mass/Vol]31.6 g/lOFieagy10.9-35.2The [facility] HospitalComment on above:Performed By: #### CBC #### [facility] [address] [place] [address] Dr. Grzegorz Finley (RBC) [Entitic vol]75.8 fLCritically low81.0-99.0The [facility] HospitalComment on above:Performed By: #### CBC #### [facility] [address] [place] [address] Dr. Grzegorz Wild #0.4 103/ulNormal0.3-0.8The [facility] HospitalComment on above:Performed By: #### CBC #### [facility] [address] [place] [address] Dr. Grzegorz Lemusocytes/100 WBC (Bld)9.7 %Normal1.7-12.0The [facility] Comment on above:Performed By: #### CBC #### [facility] [address] [place] [address] Dr. Grzegorz Parada #1.7 103/ulNormal1.4-6.5The [facility] HospitalComment on above:Performed By: #### CBC #### [facility] [address] [address] [address] Grzegorz WangNeutrophils/100 WBC (Bld)43.3 %Tyktxl65.0-75.0The [facility] HospitalComment on above:Performed By: #### CBC #### [facility] [address] [place] [address] Dr. Grzegorz WangPlatelet mean volume (Bld) [Entitic vol]10.1 fLNormal9.5-13.5The [facility] HospitalComment on above:Performed By: #### CBC #### [facility] [address] [place] [address] Dr. Grzegorz WangPLT179 103/baXruvyd967-354Rxf [facility] HospitalCommymichigan medical center clare on above: Performed By: #### CBC #### [facility] [address] [place] [address] Dr. Grzegorz WangRBC4.22 106/ulNormal4.20-5.40The [facility] HospitalCommymichigan medical center clare on above:Performed By: #### CBC #### [facility] [address] [place] [address] Dr. Grzegorz WangWBC3.8 103/ulCritically low4.0-11.0The [facility] on above:Performed By: #### CBC #### [facility] [address] [place] [address] Dr. Grzegorz WangCT CSPINE WO CONon [id number] [facility] CON[facility]AM[facility]: [facility] HISTORY: Unspecified fall COMPARISON: Prior [...] Electronically authenticated by: JEAN-PIERRE GIRALDO Date: 2021-09-02 19:33NoDayton Children's HospitalCT STROKE HEAD WOon [id number] STROKE HEAD WOEXAMINATION: CT STROKE HEAD WO HISTORY: Unspecified fall [...] Electronically authenticated by: JEAN-PIERRE GIRALDO Date: 2021-09-02 19:29[facility] HospitalCovid-19 PCR (CVDTBH)on [id number]-CoV-2 (COVID-19) RNA SIOBHAN+probe Ql (Unsp spec)DetectedCritically abnormalNOT DETECTEDThe [facility] HospitalComment on above:Result Comment: This test is not yet approved or cleared by the [place] FDA. When there are no FDA-approved or cleared tests available, and other criteria are met, FDA can make tests available under an emergency access mechanism called an Emergency Use Authorization (EUA). The EUA for this test is supported by the Turning Machine Set Up Operator of Health and Human Service's declaration that circumstances exist to justify the emergency use of in vitro diagnostics for the detection and/or diagnosis of the virusthat causes COVID-19. This EUA will remain in effect for the duration of the COVID-19 declaration ju stifying emergency of IVDs, unless it is terminated or revoked by the FDA (after which the test mayno longer be used).Performed By: #### CBC #### [facility] [address] [place] [address] Dr. Grzegorz Quevedo SCREEN RAPID (URINE)on [id number]F [facility] on above:Performed By: #### ERUR #### [facility] [address] [place] [address] Dr. Grzegorz WangBARNegativeNormalNEGATIVECommymichigan medical center clare on above: Performed By: #### ERUR #### [facility] [address] [place] [address] Dr. Grzegorz WangBUPNegativeNormalNEGATIVECommymichigan medical center clare on above: Performed By: #### ERUR #### [facility] [address] [place] [address] Dr. Grzegorz WangBZONegativeNormalNEGRegency Hospital Company on above: Performed By: #### ERUR #### [facility] [address] [place] [address] Dr. Grzegorz RennerCNegativeNormalNEGRegency Hospital Company on above: Performed By: #### ERUR #### [facility] [address] [place] [address] Dr. Grzegorz ConnellKettering Health Main CampusCommymichigan medical center clare on above: Result Comment: AMP (Amphetamine): 500ng/mL, BAR (Barbituates): 200 ng/mL, BZO (Benzodiazepines): 150 ng/mL, BUP (Buprenorphine): 10 ng/mL, MITZY (Cocaine): 150 ng/mL, mAMP (Methamphetamine): 500 ng/mL, MTD (Methadone): 200 ng/mL, OPI (Opiates): 100 ng/mL, OXY (Oxycodone): 100 ng/mL, PCP (Phencyclidine): 25 ng/mL, PPX (Propoxyphene): 300 ng/mL, THC (Cannabinoids): 50 ng/mL, TCA (Trycyclic Antidepressants): 300 ng/mLPerformed By: #### ERUR #### [facility] [address] [place] [address] Dr. Yilan ChangDRUG CUT HEADERDRUG CLASS TEST SYSTEM CUT-OFF CONCENTRATIONS ARE FOLLOWS:NormalThe [facility] HospitalComment on above:Performed By: #### ERUR #### [facility] [address] [place] [address] Dr. Grzegorz WangmAMPNegativeNormalNEGATIVEComment on above: Performed By: #### ERUR #### [facility] [address] [place] [address] Dr. Grzegorz WangMTDNegativeNormalNEGATIVEComment on above: Performed By: #### ERUR #### [facility] [address] [place] [address] Dr. Grzegorz WangOPINegativeNormalNEGATIVECommymichigan medical center clare on above: Performed By: #### ERUR #### [facility] [address] [place] [address] Dr. Grzegorz WangOXYNegativeNormalNEGATIVEComment on above: Performed By: #### ERUR #### [facility] [address] [place] [address] Dr. Grzegorz WangPCPNegativeNormalNEGATIVEComment on above: Performed By: #### ERUR #### [facility] [address] [place] [address] Dr. Grzegorz WangPPXNegativeNormalNEGATIVECommymichigan medical center clare on above: Performed By: #### ERUR #### [facility] [address] [place] [address] Dr. Grzegorz WangTCAPositiveAbnormalNEGATIVEComment on above: Performed By: #### ERUR #### [facility] [address] [place] [address] Dr. Grzegorz WangTHCNegativeNormalNEGATIVEComment on above: Performed By: #### ERUR #### [facility] [address] [place] [address] Dr. Grzegorz WangLACTATE/LACTIC ACIDon [id number] [Moles/Vol]0.7 mmol/L Normal0.4-1.9The [facility] HospitalComment on above:Performed By: #### ERUR #### [facility] [address] [place] [address] Dr. Grzegorz Canela 14(COMP METB)on 76-57-9326Dgkzvsq [Mass/Vol]3.1 g/dL Critically low3.4-5.0The [facility] HospitalComment on above:Performed By: #### CBC #### [facility] [address] [place] [address] Dr. Grzegorz WangAlbumin/Globulin [Mass ratio]1.0 {ratio}NormalThe [facility] HospitalComment on above:Performed By: #### CBC #### [facility] [address] [place] [address] Dr. Grzegorz CovarrubiasP [Catalytic activity/Vol]81 U/GExjjqd02-345Aav [facility] HospitalComment on above:Performed By: #### CBC #### [facility] [address] [place] [address] Dr. Grzegorz CovarrubiasT [Catalytic activity/Vol]21 U/CZeuhyj80-35Ygp [facility] HospitalComment on above:Performed By: #### CBC #### [facility] [address] [place] [address] Dr. Grzegorz Peters gap [Moles/Vol]11.9 mmol/LNormalThe [facility] Comment on above:Performed By: #### CBC #### [facility] [address] [place] [address] Dr. Grzegorz WangAST [Catalytic activity/Vol]21 U/QWjrpnj42-35Zin [facility] HospitalComment on above:Performed By: #### CBC #### [facility] [address] [place] [address] Dr. Grzegorz WangBilirubin [Mass/Vol]0.5 mg/dLNormal0.2-1.0The [facility] Comment on above:Performed By: #### CBC #### [facility] [address] [place] [address] Dr. Grzegorz WangCalcium [Mass/Vol]8.3 mg/dLCritically low8.5-10.1The [facility] HospitalComment on above:Performed By: #### CBC #### [facility] [address] [place] [address] Dr. Grzegorz WangChloride [Moles/Vol]100 mmol/GXtuwvk37-620Gjb [facility] Comment on above:Performed By: #### CBC #### [facility] [address] [address] [address] Grzegorz WangCO2 [Moles/Vol]25.6 mmol/OAjnfzk76.0-32.0The [facility] Comment on above:Performed By: #### CBC #### [facility] [address] [place] [address] Dr. Grzegorz WangCreatinine [Mass/Vol]1.39 mg/dLCritically high0.55-1.02The [facility] HospitalComment on above:Performed By: #### CBC #### [facility] [address] [place] [address] Dr. Grzegorz ReisGFR-AF WIQHHVSB35 mL/min/1.26c3Xqwgqxdagg low>=60The [facility] HospitalComment on above:Performed By: #### CBC #### [facility] [address] [place] [address] Dr. Grzegorz ReisGFR-NON AF RPVZPMKO22 mL/min/1.48x3Uorgjzvmbq low>=60The [facility] HospitalComment on above:Performed By: #### CBC #### [facility] [address] [place] [address] Dr. Grzegorz WangGlobulin (S) [Mass/Vol]3.1 g/dLNormalThe [facility] HospitalComment on above:Performed By: #### CBC #### [facility] [address] [place] [address] Dr. Grzegorz WangGlucose [Mass/Vol]96 mg/dERuxygv50-249Hog [facility] Comment on above:Performed By: #### CBC #### [facility] [address] [place] [address] Dr. Yilan ChangPotassium [Moles/Vol]3.5 mmol/LNormal3.5-5.1The [facility] Comment on above:Performed By: #### CBC #### [facility] [address] [place] [address] Dr. Grzegorz WangProtein [Mass/Vol]6.2 g/dLCritically low6.4-8.2The [facility] HospitalComment on above:Performed By: #### CBC #### [facility] [address] [place] [address] Dr. Grzegorz WangSodium [Moles/Vol]134 mmol/LCritically tvx102-710Mum [facility] HospitalComment on above:Performed By: #### CBC #### [facility] [address] [place] [address] Dr. Grzegorz WangUrea nitrogen [Mass/Vol]33.0 mg/dLCritically high7.0-18.0The [facility] HospitalComment on above:Performed By: #### CBC #### [facility] [address] [place] [address] Dr. Grzegorz Padron nitrogen/Creatinine [Mass ratio]23.7 mg/mgNoDayton Children's HospitalComment on above:Performed By: #### CBC #### [facility] [address] [place] [address] Dr. Grzegorz ParikhIMEsagar [id number] Coag (PPP) [Relative time]{INR}NormalThe [facility] HospitalComment on above:Performed By: #### PHIL DOW #### [facility] [address] [place] [address] Dr. Grzegorz Hercules GUIDELINESSEE BELOWSt. Francis HospitalComment on above:Result Comment: DESIRED INR: 2.0 - 3.0 CONDITIONS NOT LISTED BELOW 2.5 - 3.5 FOR PROSTHETIC HEART VALVE REPLACEMENT 2.5 - 3.5 RECURRENT THROMBOSIS Performed By: #### PHIL DOW #### [facility] [address] [place] [address] Dr. Grzegorz WangPT Coag (PPP) [Time]10.0 sNormal9.0-11.6The [facility] Comment on above:Performed By: #### PALOMA, LIPA #### [facility] [address] [place], [place] [address] Dr. Grzegorz Aguilar [id number] Coag (Chris) [Time]32.1 sCbwveq68.3-36.2The [facility] HospitalComment on above:Performed By: #### PALOMA, LIPA #### [facility] [address] [place], [place] [address] Dr. Grzegorz WangXR CHEST 1 [place] [id number] CHEST 1 VEXAM: Yue x-ray HISTORY: . Altered mental status . COMPARISON: 07/29/2021 TECHNIQUE: AP portable upright view of the chest FINDINGS: Heart and vascularity are unremarkable. Lungs are free of focal infiltrates. Loop recorder overlies the left chest. Atherosclerotic changes of the thoracic aorta are noted. IMPRESSION: No acute heart or lung disease identified. Electronically authenticated by: NATACHA JAUREGUI Date: 2021-09-02 19:18NormChillicothe VA Medical CenterXR hand RT min 3V*on [id number] hand RT min 3V*[facility] / [employer] Other XR hand RT min 3V*[facility] HealthTeacher / [employer] Other XR hand RT min 3V*[address] [place] [address] HealthTeacher / [employer] Other XR hand RT min 3V*[place], [place] [address] Health[employer]acher / [employer] Other XR hand RT min 3V*XRay [facility] HealthTeacher / [employer] Other XR hand RT min 3V*[facility] / [employer] Other XR hand RT min 3V*Patient: Ozzie Gifford MR#: [id number] HealthTeacher / [employer] Other XR hand RT min 3V*55425Nqgqv Health[employer]acher / [employer] Other XR hand RT min 3V*: 1950 Acct:[id number] Health[employer] / [employer] Other XR hand RT min 3V*Age/Sex: 71 / F ADM Date: 08/02/21 [facility] [employer] Other XR hand RT min 3V*Loc: [facility] Room: Type: [facility] [employer] Other XR hand RT min 3V*Attending Dr: Susie Arrington MD [facility] [employer] Other XR hand RT min 3V*Copies to: Susie Arrington MDSp[place] HealthTeacher / [employer] Other XR hand RT min 3V*Ordering Provider: Susie Arrington MDS[place] HealthTeacher / [employer] Other XR hand RT min 3V*Date of Service: 08/02/21[place] [facility] / [employer] Other XR hand RT min 3V* XR/XR hand RT min 3V*: Closed nondisplaced fracture of proximal phalanxSummit Pacific Medical Center [employer] Other XR hand RT min 3V*of right [facility] [employer] Other XR hand RT min 3V*4 viewsRIGHT hand plain filmSummit Pacific Medical Center [employer] Other XR hand RT min 3V*COMPARISON:07/12/21[place] [facility] / [employer] Other XR hand RT min 3V*HISTORY:Status post RIGHT long finger proximal phalanx fractureSummit Pacific Medical Center [employer] Other XR hand RT min 3V*No bony alignment stable. No interval healing. Extensive degeneration.[facility] [employer] Other XR hand RT min 3V* XR/XR hand RT min 3V*[facility] [employer] Other XR hand RT min 3V*IMPRESSION:Stable findingsSpringville HealthTeacher / [employer] Other XR hand RT min 3V*Impression dictated by: Husam Martinez M.D.08/02/2021 12:[address] [facility] HealthTeacher / [employer] Other xr hand RT min 3V*Dictation Location: [id number] Health[employer]acher / [employer] Other xr hand RT min 3V*Transcribed By: SHYANN 08/02/21 1213 [employer] Other xr hand RT min 3V*Dictated By: Husam Martinez DO 08/02/[address] [place] [address] HealthTeacher / [employer] Other xr hand RT min 3V*Signed By:[employer] Other xr hand RT min 3V*08/02/21 [facility] CenterIn[facility] HealthTeacher / [employer] Other BNPon [id number] peptide B (Bld) [Mass/Vol] 192.0 pg/mLNormal<=900.0The [facility] HospitalComment on above:Performed By: #### ERUR #### [facility] [address] [place] [address] Dr. Grzegorz Navarrete BAMBI ADMITon [id number] [Catalytic activity/Vol]82 U/L Dqzsmh18-257TqbComment on above:Performed By: #### ERUR #### [facility] [address] [place] [address] Dr. Grzegorz Waters.MB [Mass/Vol]2.40 ng/mLNormal<=3.60The [facility] Comment on above:Performed By: #### ERUR #### [facility] [address] [place] [address] Dr. Grzegorz MehtaTROP4.7 pg/mLNormal4.0-51.3The [facility] HospitalComment on above:Result Comment: CUT-OFF POINTS HAVE BEEN ESTABLISHED BASED ON THE FOURTH UNIVERSAL DEFINITIONS OF MYOCARDIAL INFARCTION. THE UPPER REFERENCE LIMIT (URL) OF TROPONIN, DEFINED THE 99TH PERCENTILE OF cTnI DISTRIBUTION IN A REFERENCE POPULATION, HAS BEEN CONFIRMED THE DECISION THRESHOLD FOR [place] DIAGNOSIS.Performed By: #### ERUR #### [facility] [address] [place], [place] [id number] Dr. Grzegorz Royal70 ng/mLNormal9-82The [facility] HospitalComment on above: Performed By: #### ERUR #### [facility] [address] [place] [address] Dr. Grzegorz Hurley AUTO DIFFon [id number] #0.0 103/ulNormal0.0-0.1The [facility] HospitalComment on above:Performed By: #### ERUR #### [facility] [address] [place] [address] Dr. Grzegorz WangBasophils/100 WBC (Bld)0.7 %Normal0.2-2.0 Comment on above:Performed By: #### ERUR #### [facility] [address] [place] [address] Dr. Grzegorz Tellez #0.2 103/ulNormal0.0-0.7The [facility] HospitalComment on above: Performed By: #### ERUR #### [facility] [address] [place] [address] Dr. Grzegorz Reisosinophils/100 WBC (Bld)4.1 %Normal0.9-7.0The [facility] Comment on above:Performed By: #### ERUR #### [facility] [address] [place] [address] Dr. Grzegorz Reisrythrocyte distribution width (RBC) [Ratio]15.7 %Critically high 11.0-15.0Comment on above:Performed By: #### ERUR #### [facility] [address] [place] [address] Dr. Grzegorz WangHematocrit (Bld) [Volume fraction]32.6 %Critically low36.0-48.[address] [facility] HospitalComment on above:Performed By: #### ERUR #### [facility] [address] [place] [address] Dr. Grzegorz WangHemoglobin (Bld) [Mass/Vol]9.9 g/dLCritically low12.0-16.0Comment on above:Performed By: #### ERUR #### [facility] [address] [address] [address] Grzegorz Barbosa #0.02 10e3/ulNormal0.00-0.03The [facility] HospitalComment on above:Performed By: #### ERUR #### [facility] [address] [address] [address] Grzegorz Barbosa %0.3 %Normal0.0-0.5The [facility] HospitalComment on above: Performed By: #### ERUR #### [facility] [address] [place] [address] Dr. Grzegorz Soriano #1.7 103/ulNormal1.2-3.8The [facility] HospitalComment on above:Performed By: #### ERUR #### [facility] [address] [place] [address] Dr. Grzegorz Wilkinshocytes/100 WBC (Bld)28.0 %Wuhhtg32.5-60.0The [facility] HospitalComment on above:Performed By: #### ERUR #### [facility] [address] [place] [address] Dr. Grzegorz AriasUAL DIFF REQNONormalThe [facility] HospitalComment on above: Performed By: #### ERUR #### [facility] [address] [place] [address] Dr. Grzegorz Finley (RBC) [Entitic mass]23.9 pgCritically low26.7-34.0The [facility] HospitalComment on above:Performed By: #### ERUR #### [facility] [address] [place] [address] Dr. Grzegorz Finley (RBC) [Mass/Vol]30.4 g/fNVjdnhl51.9-35.2The [facility] HospitalComment on above:Performed By: #### ERUR #### [facility] [address] [place] [address] Dr. Grzegorz Finley (RBC) [Entitic vol]78.7 fLCritically low81.0-99.0The [facility] HospitalComment on above:Performed By: #### ERUR #### [facility] [address] [place] [address] Dr. Grzegorz Wild #0.6 103/ulNormal0.3-0.8The [facility] HospitalComment on above:Performed By: #### ERUR #### [facility] [address] [place] [address] Dr. Grzegorz Lemusocytes/100 WBC (Bld)10.4 %Normal1.7-12.0The [facility] Comment on above:Performed By: #### ERUR #### [facility] [address] [place] [address] Dr. Grzegorz Parada #3.3 103/ulNormal1.4-6.5The [facility] HospitalComment on above:Performed By: #### ERUR #### [facility] [address] [place] [address] Dr. Grzegorz Omerutrophils/100 WBC (Bld)56.5 %Dtzllj82.0-75.0The [facility] HospitalComment on above:Performed By: #### ERUR #### [facility] [address] [place] [address] Dr. Grzegorz Kwan mean volume (Bld) [Entitic vol]10.2 fLNormal9.5-13.5The [facility] HospitalComment on above:Performed By: #### ERUR #### [facility] [address] [place] [address] Dr. Grzegorz WangPLT216 103/yjOdpuoa396-784Lfw [facility] HospitalComment on above: Performed By: #### ERUR #### [facility] [address] [place] [address] Dr. Grzegorz DobsonC4.14 106/ulCritically low4.20-5.40The [facility] HospitalComment on above:Performed By: #### ERUR #### [facility] [address] [place] [address] Dr. Grzegorz WangWBC5.9 103/ulNormal4.0-11.0The [facility] HospitalComment on above: Performed By: #### ERUR #### [facility] [address] [place] [address] Dr. Grzegorz Hernandez HEAD WO CONon [id number] HEAD WO CONEXAMINATION: CT HEAD WO CON HISTORY: Asthenia COMPARISON: [...] Electronically authenticated by: DORIAN GREENE Date: 2021-07-29 15:01[facility] URINE PROFILEon [id number] Ql (U)NegativeNormal NEGATIVEUniversity Hospitals Parma Medical Center HospitalComment on above:Performed By: #### ERUR #### [facility] [address] [place] [address] Dr. Grzegorz WangClarity (U)CLEARNormalCLEARComment on above: Performed By: #### ERUR #### [facility] [address] [place] [address] Dr. Grzegorz Delvalle (U)LT. YELLOWNormalYELLOWThe [facility] HospitalComment on above:Performed By: #### ERUR #### [facility] [address] [place] [address] Dr. Grzegorz Dawson micrscopic examination will be performed if indicated. NormalThe [facility] HospitalComment on above:Performed By: #### ERUR #### [facility] [address] [place] [address] Dr. Grzegorz WangGlucose Ql (U)NegativeNormalNEGATIVEComment on above:Performed By: #### ERUR #### [facility] [address] [place] [address] Dr. Yilan ChangHemoglobin Ql (U)NegativeNormalNEGATIVE Comment on above:Performed By: #### ERUR #### [facility] [address] [place] [address] Dr. Grzegorz Novaones Ql (U)NegativeNormalNEGATIVEComment on above:Performed By: #### ERUR #### [facility] [address] [place] [address] Dr. Grzegorz WangLEUKOCYTESNegativeNormalNEGATIVEThe [facility] HospitalComment on above:Performed By: #### ERUR #### [facility] [address] [place] [address] Dr. Grzegorz Álvareztrite Ql (U)NegativeNormalNEGATIVEComment on above:Performed By: #### ERUR #### [facility] [address] [place] [address] Dr. Grzegorz WangpH (U)5.5 [pH]Normal5-9The [facility] HospitalComment on above: Performed By: #### ERUR #### [facility] [address] [place] [address] Dr. Grzegorz WangSPEC GRAVITY1.278Yxaabi2.005-<=1.025The [facility] HospitalComment on above:Performed By: #### ERUR #### [facility] [address] [place] [address] Dr. Grzegorz WangUA PROTEINNegativeNormalNEGATIVE/ TRACEThe [facility] Comment on above:Performed By: #### ERUR #### [facility] [address] [place] [address] Dr. Grzegorz Durham MICRO INDNOT INDICATEDNormalThe [facility] HospitalComment on above:Performed By: #### ERUR #### [facility] [address] [place] [address] Dr. Grzegorz Willisinogen Qn (U)0.2 {Lidya'U}/dLNormal0.2 - 1.0The [facility] HospitalComment on above:Performed By: #### ERUR #### [facility] [address] [address] [address] Grzegorz LamaF 14(COMP METB)on [id number] [Mass/Vol]3.1 g/dL Critically low3.4-5.0The [facility] HospitalComment on above:Performed By: #### ERUR #### [facility] [address] [place] [address] Dr. Grzegorz WangAlbumin/Globulin [Mass ratio]1.0 {ratio}NormalThe [facility] HospitalComment on above:Performed By: #### ERUR #### [facility] [address] [place] [address] Dr. Grzegorz CovarrubiasP [Catalytic activity/Vol]99 U/LVljtkw12-649Mvr [facility] HospitalComment on above:Performed By: #### ERUR #### [facility] [address] [place] [address] Dr. Grzegorz CovarrubiasT [Catalytic activity/Vol]18 U/RBmyrbs66-59Ooz [facility] HospitalComment on above:Performed By: #### ERUR #### [facility] [address] [place] [address] Dr. Grzegorz Peters gap [Moles/Vol]10.5 mmol/LNormalThe [facility] Comment on above:Performed By: #### ERUR #### [facility] [address] [place] [address] Dr. Grzegorz WangAST [Catalytic activity/Vol]14 U/LCritically rgy85-41Fdr [facility] HospitalComment on above:Performed By: #### ERUR #### [facility] [address] [place] [address] Dr. Grzegorz WangBilirubin [Mass/Vol]0.3 mg/dLNormal0.2-1.0The [facility] Comment on above:Performed By: #### ERUR #### [facility] [address] [place] [address] Dr. Grzegorz WangCalcium [Mass/Vol]8.5 mg/dLNormal8.5-10.1 Comment on above:Performed By: #### ERUR #### [facility] [address] [address] [address] Grzegorz WangChloride [Moles/Vol]108 mmol/LCritically sikw42-953EbcComment on above:Performed By: #### ERUR #### [facility] [address] [address] [address] Grzegorz WangCO2 [Moles/Vol]26.0 mmol/PHmlqoe93.0-32.0The [facility] Comment on above:Performed By: #### ERUR #### [facility] [address] [address] [address] Grzegorz WangCreatinine [Mass/Vol]1.07 mg/dLCritically high0.55-1.02The [facility] HospitalComment on above:Performed By: #### ERUR #### [facility] [address] [place] [address] Dr. Lantigua ChangEGFR-AF LAO>60Normal>=60The [facility] HospitalComment on above:Performed By: #### ERUR #### [facility] [address] [address] [address] Grzegorz ReisGFR-NON AF HKQQMIBR77 mL/min/1.17o4Fnwnnrervg low>=60The [facility] HospitalComment on above:Performed By: #### ERUR #### [facility] [address] [address] [address] Grzegorz WangGlobulin (S) [Mass/Vol]3.0 g/dLNormalThe [facility] HospitalComment on above:Performed By: #### ERUR #### [facility] [address] [address] [address] Grzegorz WangGlucose [Mass/Vol]87 mg/yTUrmdjx90-231Mpo Comment on above:Performed By: #### ERUR #### [facility] [address] [address] [address] Grzegorz WangPotassium [Moles/Vol]3.5 mmol/LNormal3.5-5.1The [facility] Comment on above:Performed By: #### ERUR #### [facility] [address] [address] [address] Grzegorz WangProtein [Mass/Vol]6.1 g/dLCritically low6.4-8.2The [facility] HospitalComment on above:Performed By: #### ERUR #### [facility] [address] [place] [address] Dr. Grzegorz WangSodium [Moles/Vol]141 mmol/YKzrcnz120-896Auy [facility] Comment on above:Performed By: #### ERUR #### [facility] [address] [place] [address] Dr. Grzegorz WangUrea nitrogen [Mass/Vol]22.0 mg/dLCritically high7.0-18.0Comment on above:Performed By: #### ERUR #### [facility] [address] [place] [address] Dr. Grzegorz WangUrea nitrogen/Creatinine [Mass ratio]20.6 mg/mgNoDayton Children's HospitalComment on above:Performed By: #### ERUR #### [facility] [address] [place] [address] Dr. Grzegorz Borja [id number] Coag (PPP) [Relative time]0.99 {INR} NormalComment on above:Performed By: #### PTT, PT #### [facility] [address] [place] [address] Dr. Grzegorz Hercules GUIDELINESSEE BELOWNoDayton Children's HospitalComment on above:Result Comment: DESIRED INR: 2.0 - 3.0 CONDITIONS NOT LISTED BELOW 2.5 - 3.5 FOR PROSTHETIC HEART VALVE REPLACEMENT 2.5 - 3.5 RECURRENT THROMBOSIS Performed By: #### PTT, PT #### [facility] [address] [place] [address] Dr. Grzegorz WangPT Coag (PPP) [Time]10.7 sNormal9.0-11.6The [facility] Comment on above:Performed By: #### PTT, PT #### [facility] [address] [place], [place] [id number] Dr. Grzegorz Aguilar [id number] Coag (Bld) [Time]31.0 uQblbks25.3-36.2The [facility] HospitalComment on above:Performed By: #### PTT, PT #### [facility] [address] [id number] [address] Grzegorz WangXR CHEST 1 Von [id number] CHEST 1 VEXAM: XR CHEST 1 V HISTORY: Asthenia difficulty [...] Electronically authenticated by: NATACHA TO Date: 2021-07-29 14:54[facility] HospitalXR [facility] RT min 3V*on [id number] hand RT min 3V*[facility] [employer] Other XR hand RT min 3V*[facility] [employer] Other XR hand RT min 3V*[address] [place] [address] [employer] Other XR hand RT min 3V*[place], [place] [address] [place] [address] [employer] Other XR hand RT min 3V*[facility] [employer] Other XR hand RT min 3V*[facility] / [employer] Other XR hand RT min 3V*Patient: Ozzie Giffodr MR#: [id number] [employer] / [employer] Other XR hand RT min 3V*57235Dbisz [employer] / [employer] Other XR hand RT min 3V*: 1950 Acct:[id number] [employer] / [employer] Other XR hand RT min 3V*Age/Sex: 71 / F ADM Date: 07/12/21 [employer] Other XR hand RT min 3V*Loc: SOXD Room: Type: [facility] / [employer] Other XR hand RT min 3V*Attending Dr: Susie Arrington MD [employer] Other XR hand RT min 3V*Ordering Provider: Susie Arrington MDAula 7 [employer] / [employer] Other XR hand RT min 3V*Date of Service: 07/12/21[employer] / [employer] Other XR hand RT min 3V* XR/XR hand RT min 3V*: Right hand painCipherCloud Other XR hand RT min 3V*Copies to: Susie Arrington MDThuzio Inc. Other XR hand RT min 3V*XR hand RT min 3V* 07/12/2021 10:43 AM [employer] Other XR hand RT min 3V*SIGNS AND SYMPTOMS: Fall, pain in right hand greatest in the right thumb with swellingSpringville HealthTe[facility] / [employer] Other XR hand RT min 3V*PROTOCOL: Frontal, lateral, and oblique radiographs of the right handInspire Medical Systems HealthTeacher / [employer] Other XR hand RT min 3V*[facility] [employer] Other XR hand RT min 3V*FINDINGS:[employer] Other XR hand RT min 3V*There is mild narrowing of the distal interphalangeal joints. There is a mild flexion deformity ofC[employer] Other XR hand RT min 3V*the fifth proximal interphalangeal joint. There is mild narrowing of the first metacarpophalangealSpringville HealthTe[facility] / [employer] Other XR hand RT min 3V*junction with mild to moderate degenerative change at the first carpometacarpal joint. There is noNmer[facility] / [employer] Other XR hand RT min 3V*evidence of acute displaced fracture. No evidence of dislocation.[employer] Other XR hand RT min 3V* XR/XR hand RT min 3V*[employer] Other XR hand RT min 3V*IMPRESSION:[employer] Other XR hand RT min 3V*No evidence of fracture.[employer] Other XR hand RT min 3V*Degenerative changes are noted, greatest in the thumb.[employer] Other XR hand RT min 3V*There is a mild flexion deformity of the fifth proximal interphalangeal joint.[employer] Other XR hand RT min 3V*Impression dictated by: Bambi Sung M.D.07/12/2021 12:29 PMNFl[employer] Other XR hand RT min 3V*Dictation Location: [address] [facility] / [employer] Other XR hand RT min 3V*Transcribed By: SHYANN 07/12/21 122 [employer] Other XR hand RT min 3V*Dictated By: Bambi Sung II, MD 07/12/[address] [place] [address] [employer] / [employer] Other XR hand RT min 3V*Signed By:[employer] Other XR hand RT min 3V*07/12/[address] [place] [address] [employer] / [employer] Other CBC AUTO DIFFon [id number] #0.1 103/ulNormal 0.0-0.1The [facility] HospitalComment on above:Performed By: #### CBC #### [facility] [address] [address] [address] Grzegorz WangBasophils/100 WBC (Bld)0.8 %Normal0.2-2.0The [facility] Comment on above:Performed By: #### CBC #### [facility] [address] [place] [address] Dr. Grzegorz Tellez #0.3 103/ulNormal0.0-0.7The [facility] HospitalComment on above: Performed By: #### CBC #### [facility] [address] [place] [address] Dr. Grzegorz Reisosinophils/100 WBC (Bld)3.8 %Normal0.9-7.0The [facility] Comment on above:Performed By: #### CBC #### [facility] [address] [place] [address] Dr. Grzegorz Reisrythrocyte distribution width (RBC) [Ratio]14.1 %Rkwvcn83.0-15.[address] [facility] HospitalComment on above:Performed By: #### CBC #### [facility] [address] [place] [address] Dr. Grzegorz WangHematocrit (Bld) [Volume fraction]34.4 %Critically low36.0-48.[address] [facility] HospitalComment on above:Performed By: #### CBC #### [facility] [address] [place] [address] Dr. Grzegorz WangHemoglobin (Bld) [Mass/Vol]10.4 g/dLCritically low12.0-16.0The [facility] HospitalComment on above:Performed By: #### CBC #### [facility] [address] [place] [address] Dr. Grzegorz Barbosa #0.04 10e3/ulCritically high0.00-0.03The [facility] Comment on above:Performed By: #### CBC #### [facility] [address] [place] [address] Dr. Grzegorz Barbosa %0.5 %Normal0.0-0.5The [facility] HospitalComment on above: Performed By: #### CBC #### [facility] [address] [address] [address] Grzegorz Soriano #1.7 103/ulNormal1.2-3.8The [facility] Hospitalment on above:Performed By: #### CBC #### [facility] [address] [address] [address] Grzegorz Finleymphocytes/100 WBC (Bld)22.1 %Aqihqx60.5-60.0The [facility] HospitalComment on above:Performed By: #### CBC #### [facility] [address] [place] [address] Dr. Grzegorz Bowers DIFF REQNONormalThe [facility] HospitalComment on above: Performed By: #### CBC #### [facility] [address] [place] [address] Dr. Grzegorz Finley (RBC) [Entitic mass]25.6 pgCritically low26.7-34.0The [facility] Hospitalment on above:Performed By: #### CBC #### [facility] [address] [place] [address] Dr. Grzegorz Finley (RBC) [Mass/Vol]30.2 g/wCGnhlri07.9-35.2The [facility] Hospitalment on above:Performed By: #### CBC #### [facility] [address] [place] [address] Dr. Grzegorz Finley (RBC) [Entitic vol]84.5 xXNrjavf02.0-99.0The [facility] HospitalComment on above:Performed By: #### CBC #### [facility] [address] [place] [address] Dr. Grzegorz Wild #0.8 103/ulNormal0.3-0.8The [facility] Hospitalment on above:Performed By: #### CBC #### [facility] [address] [place] [address] Dr. Grzegorz Lemusocytes/100 WBC (Bld)11.1 %Normal1.7-12.0The [facility] Comment on above:Performed By: #### CBC #### [facility] [address] [address] [address] Grzegorz OmerUT #4.7 103/ulNormal1.4-6.5The [facility] HospitalComment on above:Performed By: #### CBC #### [facility] [address] [place] [address] Dr. Grzegorz Omerutrophils/100 WBC (Bld)61.7 %Idmvvt14.0-75.0The [facility] HospitalComment on above:Performed By: #### CBC #### [facility] [address] [place] [address] Dr. Grzegorz WangPlatelet mean volume (Bld) [Entitic vol]10.6 fLNormal9.5-13.5The [facility] HospitalComment on above:Performed By: #### CBC #### [facility] [address] [place] [address] Dr. Grzegorz WangPLT281 103/vbRfjepi204-387Nyu [facility] HospitalComment on above: Performed By: #### CBC #### [facility] [address] [place] [address] Dr. Grzegorz WangRBC4.07 106/ulCritically low4.20-5.40The [facility] Hospitalment on above:Performed By: #### CBC #### [facility] [address] [place] [address] Dr. Grzegorz WangWBC7.6 103/ulNormal4.0-11.0The [facility] HospitalComment on above: Performed By: #### CBC #### [facility] [address] [place] [address] Dr. Grzegorz WangCT CHEST WO CONon [id number] CHEST WO CONEXAMINATION: CT CHEST WO CON HISTORY: Subcutaneous emphysema COMPARISON: None. [...] Electronically authenticated by: LUCI MARADIAGA Date: 2021-05-08 18:59[facility] HEAD WO CONon [id number] HEAD WO CONEXAMINATION: CT HEAD WO CON, 05/08/2021 4:07 PM [...] Electronically authenticated by: MITZI LOWRY Date: 2021-05-08 17:27NoDayton [facility] HospitalCT [facility] WO CONon [id number] NECK ST WO CONEXAMINATION: CT NECK ST WO CON HISTORY: Subcutaneous [...] The parotid glands, parapharyngeal spaces and left disability attorney spaces appear normal. A tiny amount of air in the venous system in the right parapharyngeal space and in the venous system of the right disability attorney space. A tiny amount air in probably [...] space and venous system in the right disability attorney space, likely iatrogenic. No abnormal fluid collection. Prior right carotid endarterectomy. 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 Electronically authenticated by: BASIM CABAN Date: 2021-05-08 19:23NoDayton Children's HospitalPROF CHEM 8 (BAS METB)on [id number] gap [Moles/Vol]12.3 mmol/LNormalThe [facility] HospitalComment on above:Performed By: #### PALOMA, LIPA #### [facility] [address] [place] [address] Dr. Grzegorz WangCalcium [Mass/Vol]8.4 mg/dLCritically low8.5-10.1The [facility] HospitalComment on above:Performed By: #### PALOMA, LIPA #### [facility] [address] [address] [address] Grzegorz WangChloride [Moles/Vol]108 mmol/LCritically zwcl34-823Xyf [facility] HospitalComment on above:Performed By: #### PALOMA, LIPA #### [facility] [address] [address] [address] Grzegorz WangCO2 [Moles/Vol]25.9 mmol/AJuxqjs40.0-30.0The [facility] Comment on above:Performed By: #### PALOMA, LIPA #### [facility] [address] [place] [address] Dr. Grzegorz WangCreatinine [Mass/Vol]1.18 mg/dLCritically high0.52-1.04The [facility] HospitalComment on above:Performed By: #### PALOMA, LIPA #### [facility] [address] [place] [address] Dr. Lantigua ChangEGFR-AF SIRMAMTJ62 mL/min/1.73m5Kivuhjtqrw low>=60The [facility] HospitalCommymichigan medical center clare on above:Performed By: #### PALOMA, LIPA #### [facility] [address] [place] [address] Dr. Lantigua ChangEGFR-NON AF IUUSLPJX92 mL/min/1.20z8Mgzmeyjiqn low>=60The [facility] HospitalComment on above:Performed By: #### PALOMA, LIPA #### [facility] [address] [place] [address] Dr. Grzegorz WangGlucose [Mass/Vol]84 mg/gPUdebvc03-761Owk [facility] Comment on above:Performed By: #### PALOMA, LIPA #### [facility] [address] [place] [address] Dr. Grzegorz WangPotassium [Moles/Vol]3.2 mmol/LCritically low3.4-5.0The [facility] HospitalComment on above:Performed By: #### PALOMA, LIPA #### [facility] [address] [place], [place] [address] Dr. Grzegorz WangSodium [Moles/Vol]143 mmol/AMxtaax696-430Yqq [facility] Comment on above:Performed By: #### PALOMA, LIPA #### [facility] [address] [place], [place] [address] Dr. Grzegorz Padron nitrogen [Mass/Vol]35.0 mg/dLCritically high7.0-18.0The [facility] HospitalComment on above:Performed By: #### PALOMA, LIPA #### [facility] [address] [place], [place] [address] Dr. Grzegorz Padron nitrogen/Creatinine [Mass ratio]29.7 mg/mgNoDayton Children's HospitalComment on above:Performed By: #### PALOMA, LIPA #### [facility] [address] [place], [place] [address] Dr. Grzegorz WangXR PELVIS 1_2 VIEWSon 64-30-4513JO PELVIS 1_2 VIEWSEXAM: XR PELVIS 1_2 VIEWS, XR SACRUM_COCCYX HISTORY: History of fall COMPARISON: None. TECHNIQUE: Single supine view of the pelvis FINDINGS: No acute fracture is seen. Joint alignment is normal. Joint spaces are preserved. The soft tissues appear unremarkable. IMPRESSION: No radiographic evidence for acute displaced fracture or malalignment. Electronically authenticated by: LUCI MARADIAGA Date: 2021-05-08 17:24[facility] HospitalXR wrist LT min 3V*on [id number] wrist LT min 3V*[facility] [employer] Other XR wrist LT min 3V*[facility] [employer] Other XR wrist LT min 3V*[address] [facility] [employer] Other XR wrist LT min 3V*Loki [address] [employer] Other XR wrist LT min 3V*XRay [facility] [employer] Other XR wrist LT min 3V*SignedSpringville HealthTeacher / [employer] Other XR wrist LT min 3V*Patient: Ozzie Gifford MR#: [id number] HealthTeacher / [employer] Other XR wrist LT min 3V*05398Wlzqf HealthTeacher / [employer] Other XR wrist LT min 3V*: 1950 Acct:[id number] [employer] Other XR wrist LT min 3V*Age/Sex: 70 / F ADM Date: 05/03/21 [employer] Other XR wrist LT min 3V*[place] [facility] [place]: Type: [facility] HealthTeacher / [employer] Other XR wrist LT min 3V*Attending Dr: Susie Arrington MD [employer] Other XR wrist LT min 3V*Ordering Provider: Susie Arrington MDSpringville HealthTeacher / [employer] Other XR wrist LT min 3V*Date of Service: 05/03/21[place] [facility] / [employer] Other XR wrist LT min 3V* XR/XR wrist LT min 3V*: Other specified postprocedural [facility] HealthTeacher / [employer] Other XR wrist LT min 3V*Copies to: Susie Arrington MD [employer] Other XR wrist LT min 3V*4 viewsLEFT wrist plain filmSpringville HealthTeacher / [employer] Other XR wrist LT min 3V*COMPARISON:03/31/21[employer] Other XR wrist LT min 3V*HISTORY:Status post ORIF distal radius fractureSpringville HealthTeacher / [employer] Other XR wrist LT min 3V*No hardware failure. Adequate bony alignment. Healing distal radius fracture noted.[employer] Other XR wrist LT min 3V* XR/XR wrist LT min 3V*[employer] Other XR wrist LT min 3V*IMPRESSION:Healing distal radius fracture. No hardware failure.[employer] Other XR wrist LT min 3V*Impression dictated by: Husam Martinez M.D.05/03/2021 2:[address] [facility] HealthTeacher / [employer] Other XR wrist LT min 3V*Dictation Location: [place] [address] [employer] Other XR wrist LT min 3V*Transcribed By: PWS 05/03/21 [facility]2 [employer] Other XR wrist LT min 3V*Dictated By: Husam Martinez DO 05/03/[address] [place] [address] HealthTeacher / [employer] Other XR wrist LT min 3V*Signed By:[employer] Other XR wrist LT min 3V*05/03/[address] [place], [place] [address] Other XR FOREARM LT 2 VIEWSon 29-00-8315VM FOREARM LT 2 VIEWSIMAGES REVIEWED: XR WRIST LT MIN 3 V, XR FOREARM [...] Electronically authenticated by: MARYSE LANGFORD Date: 2021-03-30 20:17[facility] HospitalCardiovascular Lab Reporton [id number] Lab Report [facility] MR #: [id number] Department of Physician: Donna Henderson M.D. Division of Service Date: 03/03/2020 Cardiology Birthdate: 1950 Adult Cardiovascular Room #: [facility] [address] [place] [address] Cardiovascular Laboratory Report FINAL IMPRESSION: 1. Moderate [...] high-intensity statin therapy, beta jimmy, +/- an angiotensin-converting enzyme inhibitor are indicated. 4. Further investigations and management for the patient's underlying anemia with her family physician as appropriate. 5. Follow up with Dr. Ruben Salvador and/or Liz Lane CNP as scheduled. 6. [...] femoral vein and artery was obtained. A 6-Surinamese 11 cm sheath was inserted in each. Difficulty exchanging the micropuncture kit for a 6-Surinamese sheath encountered for the arterial access site; [...] cardiac output/cardiac index was calculated using the Kaetlin principle. The Carson catheter was removed. Bilateral selective coronary angiography was performed using JL4 and JR4 catheters. A pigtail catheter was used for left heart catheterization, left ventriculography and aortic pullback pressure measurements. After reviewing the images and data, it was elected to proceed with the physiological assessment of the coronary lesions. A 6-Surinamese XB 3.5 guide catheter was advanced over [...] trauma. The guide catheter was removed. A 5-Surinamese JR4 guide catheter was advanced in and [...] Doty M.D. Date Trans: 03/03/2020 12:28 P/antonio DN_JN:[id number] cc: Ruben Salvador M.D. Heart Failure/ Transplant Mailstop [address] [facility] [address], [employer] [address] Mailstop [address] [facility] [address]FgpeepEzz[facility] Vital Signs Date TimeVital SignValuePerforming ZjcuvxvskElcyntps15-55-9651 11:28-0400Body ulkjxw820.94 cmLisa Aichholz DYE WEIGHER HELPER-C Work Phone: [phone]10-23-2025 11:28-0400 Body mass index (BMI) [Ratio]28.7 kg/m2Lisa Aichholz DYE WEIGHER HELPER-C Work Phone: 1([phone])[address]10-23-2025 11:28-0400 Body gtnifl10.94 kgLisa Aichholz DYE WEIGHER HELPER-C Work Phone: 1([phone])[address]14 [address]10-23-2025 11:28-0400 Diastolic blood yddkbryh80 mm[Hg]Cindy Aichholz DYE WEIGHER HELPER-C Work Phone: 1(223)[address]10-23-2025 11:28-0400 Heart ywia754 /minLisa Aichholz DYE WEIGHER HELPER-C Work Phone: 1(637)55714 [address]10-23-2025 11:28-0400 Respiratory rate18 /minLisa Aichholz DYE WEIGHER HELPER-C Work Phone: 1(947)[address]10-23-2025 11:28-0400 SaO2% (BldA) [Mass fraction]96 %Cindy Aichholz DYE WEIGHER HELPER-C Work Phone: 1(624)[address]114 [address]10-23-2025 11:28-0400 Systolic blood jhezuzyl284 mm[Hg]Cindy Aichholz DYE WEIGHER HELPER-C Work Phone: 1(601)[address]10-16-2025 09:08-0400 Body .94 cmLisa Aichholz DYE WEIGHER HELPER-C Work Phone: 1([phone])[address]214 [address]10-16-2025 09:08-0400 Body mass index (BMI) [Ratio]29 kg/m2Lisa Aichholz DYE WEIGHER HELPER-C Work Phone: 1(397)[address]14 [address]10-16-2025 09:08-0400 Body dsxnhqioolx55.3 [degF]Cindy Aichholz DYE WEIGHER HELPER-C Work Phone: 1(429)719-[address] [place], [place] [address]10-16-2025 09:08-0400 Body pcotuo77.56 kgLisa Aichholz DYE WEIGHER HELPER-C Work Phone: 1([phone])60714 [address]10-16-2025 09:08-0400 Diastolic blood pqimigby63 mm[Hg]Cindy Aichholz DYE WEIGHER HELPER-C Work Phone: 1(402)01614 [address]10-16-2025 09:08-0400 Heart rate80 /minLisa Aichholz DYE WEIGHER HELPER-C Work Phone: 1(462)[address]10-16-2025 09:08-0400 Respiratory rate16 /minLisa Aichholz DYE WEIGHER HELPER-C Work Phone: 1(457)[address]10-16-2025 09:08-0400 SaO2% (BldA) [Mass fraction]97 %Cindy Aichholz DYE WEIGHER HELPER-C Work Phone: 1(272)[address]10-16-2025 09:08-0400 Systolic blood jejjsbah164 mm[Hg]Cindy Aichholz DYE WEIGHER HELPER-C Work Phone: 1([phone])65714 [address]07-03-2025 14:50-0400 Body .94 cmLisa Aichholz Work Phone: 1(648)[address]07-03-2025 14:50-0400 Body mass index (BMI) [Ratio]30 kg/m2Lisa Aichholz Work Phone: 1(063)842-[address] [place], [place] [address]7-03-2025 14:50-0400 Body xpezbk26.12 kgLisa Aichholz Work Phone: 1(467)415-[address] [place], [place] [address]7-03-2025 14:50-0400 Diastolic blood vqafuxui62 mm[Hg]Cindy Aichholz Work Phone: 1([phone])[address]07-03-2025 14:50-0400 Heart rate70 /minLisa Aichholz Work Phone: 1(759)399-[address] [place], [place] [address]7-03-2025 14:50-0400 SaO2% (BldA) [Mass fraction]94 %Cindy Collado Work Phone: [facility]07-03-2025 14:50-0400 Systolic blood qjpoavfn654 mm[Hg]Cindy Duncanz Work Phone: [facility]07-01-2025 09:10-0400 Body mass index (BMI) [Ratio]30 kg/m2Cindy Whitingholz DYE WEIGHER HELPER Work Phone: [facility] CenterCxpqqfsxmp41-87-9568 09:10-0400Body temperature 97.81 [degF]Cindy Césarholz DYE WEIGHER HELPER Work Phone: [facility] CenterTrdqhaiekr01-44-0218 09:10-0400Body fkdyvk08.03 kgCindy Whitingholz DYE WEIGHER HELPER Work Phone: [facility] CenterRpvlttmksm48-00-3148 09:10-0400Diastolic blood zjmycvqu77 mm[Hg]Cindy Whitingholz DYE WEIGHER HELPER Work Phone: [facility] CenterUdmtcuapcq52-27-2903 09:10-0400Heart rate58 /min Cindy Césarholz DYE WEIGHER HELPER Work Phone: [facility] CenterAvogdukblx30-08-1299 09:10-0400Respiratory rate19 /minLisa Duncanz DYE WEIGHER HELPER Work Phone: [facility] CenterUkcftbqnpc65-71-4808 09:10-6125HqF7% (BldA) [Mass fraction]97 %Cindy Césarholz DYE WEIGHER HELPER Work Phone: [facility] CenterWksaxfymeu94-59-6812 09:10-0400Systolic blood mm[Hg]Cindy Césarholz DYE WEIGHER HELPER Work Phone: [facility] CenterCylemnmziq81-79-3377 10:12-0400Body mass index (BMI) [Ratio]29.32 kg/m2Cindy Suarezhholz DYE WEIGHER HELPER Work Phone: [facility] CenterHfhuglyzvu01-80-4135 10:12-0400Body temperature 98.8 [degF]Cindy Erickhholz DYE WEIGHER HELPER Work Phone: [facility] CenterXgtqytigbw90-84-3031 10:12-0400Body bfgvte08.4 kg Cindy Collado DYE WEIGHER HELPER Work Phone: [facility] CenterUotkpoired28-97-1011 10:12-0400Diastolic blood epsvxaqt10 mm[Hg]Cindy Collado DYE WEIGHER HELPER Work Phone: [facility] CenterGhdgwadzcm38-94-5740 10:12-0400Heart rate71 /min Cindy Collado DYE WEIGHER HELPER Work Phone: [facility] CenterOyzkwzrnmg01-20-2288 10:12-0400Respiratory rate18 /minCindy Collado DYE WEIGHER HELPER Work Phone: [facility] CenterHdulupgoji50-77-1781 10:12-8318UcV7% (BldA) [Mass fraction]98 %Cindy Collado DYE WEIGHER HELPER Work Phone: [facility] CenterAxuznjvjnz34-98-5191 10:12-0400Systolic blood dpppdtun721 mm[Hg]Cindy Collado DYE WEIGHER HELPER Work Phone: [facility] CenterLpaesdvowe15-89-9915 13:09-0400Body mass index (BMI) [Ratio]29.25 kg/b8EfbarJameson Mcleod DYE WEIGHER HELPER Work Phone: noMid [facility] CenterBalrwxahvz34-62-9913 13:09-0400Body zdpana89.22 kgSajoni Mcleod DYE WEIGHER HELPER Work Phone: [facility] CenterUfvjeyizwr50-35-0422 13:09-0400Diastolic blood nstnkdav78 mm[Hg]Jameson Mcleod DYE WEIGHER HELPER Work Phone: [place] [address]Tghleqnrar41-21-7297 13:09-0400Heart rate66 /min Jameson Mcleod DYE WEIGHER HELPER Work Phone: [place] [address]Jtalquiseu66-02-2978 13:09-7310NiI0% (BldA) [Mass fraction]98 %Jameson Mcleod DYE WEIGHER HELPER Work Phone: [place] [address]Bbfjorhxxb64-06-4878 13:09-0400Systolic blood pydyxfks135 mm[Hg]Jameson Mcleod DYE WEIGHER HELPER Work Phone: noMid [facility] CenterOsedhqnuvy26-41-1078 13:49-0400Body mass index (BMI) [Ratio]29.55 kg/m2Cindy Collado DYE WEIGHER HELPER Work Phone: [facility] CenterYfpsbjimkk08-00-4471 13:49-0400Body temperature 98.1 [degF]Cindy Collado DYE WEIGHER HELPER Work Phone: [facility] CenterGvpnnueofa54-10-9388 13:49-0400Body gdgokd82.94 kgCindy Collado DYE WEIGHER HELPER Work Phone: [facility] CenterKiwzxgavyb01-57-4982 13:49-0400Diastolic blood xfvolrmd74 mm[Hg]Cindy Collado DYE WEIGHER HELPER Work Phone: [facility] CenterKldnenvmoi33-97-0876 13:49-0400Heart rate74 /min Cindy Collado DYE WEIGHER HELPER Work Phone: [facility] CenterWpyyihtylp85-85-3225 13:49-0400Respiratory rate18 /minCindy Collado DYE WEIGHER HELPER Work Phone: [facility] CenterIhycywnqrt17-20-8779 13:49-9946ZnI5% (BldA) [Mass fraction]96 %Cindy Collado DYE WEIGHER HELPER Work Phone: [facility] CenterXaozbtdpef51-69-5006 13:49-0400Systolic blood gtdfebzz486 mm[Hg]Cindy Collado DYE WEIGHER HELPER Work Phone: [facility] CenterEbfnltbfoq00-70-5543 12:49-0500Blood Pressure LocationKori German [facility]03-04-2025 12:49-0500Diastolic blood foyqmmgt45 mm[Hg]Kori German [facility]03-04-2025 12:49-0500Heart rate61 /minKori German [facility]03-04-2025 12:49-0500Respiratory rate18 /minLauren Monserrat [facility]03-04-2025 12:49-0500Systolic blood gqxvzcku025 mm[Hg]Kori German [facility]02-19-2025 08:51-0500Diastolic blood jqpioamm53 mm[Hg]BERNICE CLEMENTE [facility]02-19-2025 08:51-0500Heart rate63 /minJENNIFER CORRIE [facility]02-19-2025 08:51-0500Respiratory rate17 /minJENNIFER CORRIE [facility]02-19-2025 08:51-0500Systolic blood qwfpposv184 mm[Hg]BERNICE CLEMENTE [facility]01-09-2025 10:15-0500Body wuldxe466.94 Urbano Day MD Work Phone: [facility]01-09-2025 10:15-0500 Body mass index (BMI) [Ratio]23.7 kg/r4UsechyShaikh Barb VIDES Work Phone: [facility]01-09-2025 10:15-0500 Body mofxqo30 kgShaikh Barb VIDES Work Phone: [facility]01-09-2025 10:15-0500 Diastolic blood ouaitphf91 mm[Hg]Shaikh Barb VIDES Work Phone: [facility]01-09-2025 10:15-0500 Heart rate74 /Jeannine Day MD Work Phone: 1([phone])[address]01-09-2025 10:15-0500 Respiratory rate18 /Jeannine Day MD Work Phone: 1(753)[address] [place], [place] 4343401-09-2025 10:15-0500 SaO2% (BldA) [Mass fraction]97 %Shaikh Barb VIDES Work Phone: 1(465)[address] [place], [place] 4343401-09-2025 10:15-0500 Systolic blood zvrrprar023 mm[Hg]Shaikh Barb VIDES Work Phone: 1(111)[address] [place], [place] [address]12-10-2024 09:55-0500 Body xokmdz428.9 Stephava Heaven DYE WEIGHER HELPER Work Phone: 1([phone] [place], [place] [address]Muhwtxckms22-33-1020 09:55-0500Body mass index (BMI) [Ratio]28.19 kg/m2Suziesa Heaven DYE WEIGHER HELPER Work Phone: [facility] CenterCukpopoetl66-99-7614 09:55-0500Body temperature 97.81 [degF]Cindy Collado DYE WEIGHER HELPER Work Phone: [facility] CenterFisswirytp81-47-4724 09:55-0500Body cxfgno99.68 kgSuziesa Heaven DYE WEIGHER HELPER Work Phone: [facility] CenterSgilwgujrb58-48-4282 09:55-0500Diastolic blood adbtcztx32 mm[Hg]Cindy Heaven DYE WEIGHER HELPER Work Phone: [facility] CenterZqhhxykjbc92-11-7956 09:55-0500Heart rate61 /min Cindy Heaven DYE WEIGHER HELPER Work Phone: [facility] CenterNyfxstgdra28-82-1745 09:55-0500Respiratory rate19 /minLisa Heaven DYE WEIGHER HELPER Work Phone: [facility] CenterPvoqqqggkx98-09-3837 09:55-3825IhG5% (BldA) [Mass fraction]98 %Cindy Collado DYE WEIGHER HELPER Work Phone: [facility] CenterTjnhkujmrb18-62-0115 09:55-0500Systolic blood gmifknvd193 mm[Hg]Cindy Whitingludmila DYE WEIGHER HELPER Work Phone: [facility] CenterDgnmkbwhqk78-09-0692 08:53-0400Body .9 cmChristopher Marbin DO Work Phone: [facility] CenterEfhskuelia07-50-6141 08:53-0400Body mass index (BMI) [Ratio]28.15 kg/z0Uksoeyukvqm Marbin DO Work Phone: [facility] CenterQfptflnhuc82-75-1750 08:53-0400Body dhmubt30.59 kgChristopher Marbin DO Work Phone: [facility] CenterApxmvyrlnk69-39-8251 08:53-0400Diastolic blood juyccrcs70 mm[Hg]Christopher Marbin DO Work Phone: [facility] CenterXocngeirdj78-25-6364 08:53-0400Systolic blood mm[Hg]Christopher Marbin DO Work Phone: [facility] CenterVurijuhbyh36-44-6009 13:12-0400Body ccifal094.9 cmBenjamin Murcek DO Work Phone: [facility] CenterTsxmzrssxa30-29-9582 13:12-0400Body mass index (BMI) [Ratio]38.92 kg/p5Kruiffyg Murcek DO Work Phone: [facility] CenterDwpmveidcq13-89-3662 13:12-0400Body ypalhy34.44 kgBenjamin Murcek DO Work Phone: [facility] CenterNkrdcbaieo57-83-9006 09:58-0400Body tpjrax856.9 Stephava Heavne DYE WEIGHER HELPER Work Phone: [facility] CenterXazlbjsomi31-93-6945 09:58-0400Body mass index (BMI) [Ratio]26.64 kg/m2Cindy Collado DYE WEIGHER HELPER Work Phone: [facility] CenterScnwfuumor67-46-4280 09:58-0400Body temperature 98.49 [degF]Cindy Collado DYE WEIGHER HELPER Work Phone: [facility] CenterPhgvaeozac71-04-3904 09:58-0400Body .96 kgCindy Collado DYE WEIGHER HELPER Work Phone: [facility] CenterUeoqrzglqj39-51-7844 09:58-0400Diastolic blood mm[Hg]Cindy Collado DYE WEIGHER HELPER Work Phone: [facility] CenterQwsdwkqpcb01-01-8353 09:58-0400Heart rate60 /min Cindy Collado DYE WEIGHER HELPER Work Phone: [facility] CenterYiisxwudor39-34-6163 09:58-0400Respiratory rate17 /minCindy Collado DYE WEIGHER HELPER Work Phone: [facility] CenterIgmeenzydy57-11-7812 09:58-3246BbR5% (BldA) [Mass fraction]100 %Cindy Collado DYE WEIGHER HELPER Work Phone: [facility] CenterGmwspenppi34-29-2195 09:58-0400Systolic blood unsmkabg482 mm[Hg]Cindy Collado DYE WEIGHER HELPER Work Phone: [facility] CenterOlpezwpilo46-94-0301 13:01-0400Blood Pressure LocationJENNIFER CORRIE [facility]07-10-2024 13:01-0400Diastolic blood vjunynvq16 mm[Hg]BERNICE CORRIE [facility]07-10-2024 13:01-0400Heart rate62 /minJENNIFER CORRIE [facility]07-10-2024 13:01-0400Respiratory rate19 /minJENNIFER CORRIE [facility]07-10-2024 13:01-0400Systolic blood syceishv446 mm[Hg]BERNICE CLEMENTE [facility]06-27-2024 09:52-0400Body .94 cmMD Shaikh Day Work Phone: [facility]06-27-2024 09:52-0400 Body mass index (BMI) [Ratio]23.7 kg/m2MD Shaikh Day Work Phone: 1(703)249-[address] [place], [place] [address]2806-27-2024 09:52-0400 Body .8 [degF]MD Shaikh Day Work Phone: 1(010)[address]06-27-2024 09:52-0400 Body ssayjf29 kgMD Shaikh Day Work Phone: 1(141)[address]06-27-2024 09:52-0400 Diastolic blood tztltfuu48 mm[Hg]MD Shaikh Day Work Phone: [facility]06-27-2024 09:52-0400 Heart rate78 /minMD Shaikh Day Work Phone: 1(578)816-[address] [place], [place] 7[address]2806-27-2024 09:52-0400 Respiratory rate16 /minMD Shaikh Day Work Phone: [facility]06-27-2024 09:52-0400 SaO2% (BldA) [Mass fraction]98 %MD Shaikh Day Work Phone: [facility]06-27-2024 09:52-0400 Systolic blood fhonrxvq850 mm[Hg]MD Shaikh Day Work Phone: 1(208)663-[address] [place], [place] [address]6-03-2024 12:39-0400 Blood Pressure LocationAurora Orzech [facility]2024 12:39-0400Body enneciaogpk17.88 [degF]Carmen Orzech [facility]2024 12:39-0400Diastolic blood zmsmoptu11 mm[Hg]Carmen Orzech [facility]2024 12:39-0400Heart rate78 /minAurora Orzech [facility]2024 12:39-0400Systolic blood qmbzhqpy678 mm[Hg]Carmen Orzech [facility]05-21-2024 08:53-0400Body pappzc112.4 cmMartin Arita MD Work Phone: [facility]05-21-2024 08:53-0400Body mass index (BMI) [Ratio]26.85 kg/d7FrjotgnMartin Arita MD Work Phone: [facility]05-21-2024 08:53-0400Body bdcgom13.37 kgMartin Arita MD Work Phone: [facility]05-21-2024 08:53-0400Diastolic blood lwsfofig37 mm[Hg]Martin Arita MD Work Phone: [facility]05-21-2024 08:53-0400Heart rate 56 /minMartin Arita MD Work Phone: [facility]05-21-2024 08:53-0400Systolic blood ymgyinms248 mm[Hg]Martin Arita MD Work Phone: [facility]03-30-2024 11:10-0400Body cufxzn472.94 cmMD Shaikh Day Work Phone: [facility]03-30-2024 11:10-0400 Body mass index (BMI) [Ratio]23.8 kg/m2MD Shaikh Day Work Phone: 1(561)[address]03-30-2024 11:10-0400 Body peqyxtaumcd21.2 [degF]MD Shaikh Day Work Phone: 1(611)[address]03-30-2024 11:10-0400 Body stycsd44.15 kgMD Shaikh Barb Work Phone: 1(210)[address]03-30-2024 11:10-0400 Diastolic blood xegggpoq81 mm[Hg]MD Shaikh Day Work Phone: 1(951)[address] [place], [place] 4343403-30-2024 11:10-0400 Heart rate58 /minMD Shaikh Barb Work Phone: 1(595)[address]03-30-2024 11:10-0400 Respiratory rate16 /minMD Shaikh Barb Work Phone: 1(731)[address]03-30-2024 11:10-0400 SaO2% (BldA) [Mass fraction]98 %MD Shaikh Day Work Phone: 1(299)[address]03-30-2024 11:10-0400 Systolic blood thajlfeh452 mm[Hg]MD Shaikh Day Work Phone: [phone] [address]03-28-2024 09:49-0400 Body bubpgg334.94 cmMD Shaikh Day Work Phone: [phone])43114 [address]03-28-2024 09:49-0400 Body mass index (BMI) [Ratio]23.8 kg/m2MD Shaikh Day Work Phone: [phone]03-28-2024 09:49-0400 Body zzjqncynsws92.6 [degF]MD Shaikh Day Work Phone: [phone])11314 [address]03-28-2024 09:49-0400 Body sxibxq10.15 kgMD Kam Kishaprakash Work Phone: 1(425)[address]14 [address]03-28-2024 09:49-0400 Diastolic blood niwnmlbb07 mm[Hg]MD Shaikh Day Work Phone: [phone])87414 [address]03-28-2024 09:49-0400 Heart rate73 /minMD Shaikh Day Work Phone: 1(617)[address]03-28-2024 09:49-0400 SaO2% (BldA) [Mass fraction]97 %MD Shaikh Day Work Phone: [phone])[address] [place], [place] 5900603-28-2024 09:49-0400 Systolic blood mm[Hg]MD Shaikh Day Work Phone: 1(716)[address] [place], [place] 4343403-02-2024 15:15-0500 Body foytgheqbax40 [degF]MD Shaikh Day Work Phone: 1(929)[address]03-02-2024 15:15-0500 Diastolic blood yqjyhezz61 mm[Hg]MD Shaikh Day Work Phone: 1(126)[address]03-02-2024 15:15-0500 Heart rate76 /minMD Shaikh Day Work Phone: 1(113)[address]03-02-2024 15:15-0500 Respiratory rate17 /minMD Shaikh Day Work Phone: 1(962)[address]03-02-2024 15:15-0500 SaO2% (BldA) [Mass fraction]95 %MD Shaikh Day Work Phone: 1(947)[address]03-02-2024 15:15-0500 Systolic blood czxtavdf607 mm[Hg]MD Shaikh Day Work Phone: 1(427)049-[address] [place], [place] 7292803-02-2024 04:48-0500 Body qstpeo88.9 kgMD Shaikh Charlesd Work Phone: 1(990)[address]03-01-2024 13:07-0500 Body lqyhtl910.94 cmMD Shaikh Charlesd Work Phone: 1(924)[address]03-01-2024 11:49-0500 Inhaled oxygen flow rate8 L/minMD Shaikh Charlesd Work Phone: 1(577)[address] [place], [place] 4343403-01-2024 10:02-0500 Body mass index (BMI) [Ratio]25.9 kg/m2MD Shaikh Charlesd Work Phone: 1(544)[address] [place], [place] 4343402-27-2024 09:48-0500 Body .94 cmMD Shaikh Charlesd Work Phone: 1(886)[address] [place], [place] 4343402-27-2024 09:48-0500 Body mass index (BMI) [Ratio]29 kg/m2MD Shaikh Charlesd Work Phone: 1(125)[address] [place], [place] 4343402-27-2024 09:48-0500 Body yctdijgclbt38.6 [degF]MD Shaikh Day Work Phone: 1(191)[address]02-27-2024 09:48-0500 Body ahscgp02.85 kgMD Shaikh Charlesd Work Phone: [address] [place], [place] 4343402-27-2024 09:48-0500 Diastolic blood fkyvbvad03 mm[Hg]MD Shaikh Day Work Phone: 1(628)[address]02-27-2024 09:48-0500 Heart rate76 /minMD Shaikh Charlesd Work Phone: 1(498)[address]02-27-2024 09:48-0500 Respiratory rate16 /minMD Shaikh Libradowad Work Phone: [facility]02-27-2024 09:48-0500 SaO2% (BldA) [Mass fraction]98 %MD Shaikh Day Work Phone: [facility]02-27-2024 09:48-0500 Systolic blood nlwfahgj391 mm[Hg]MD Shaikh Day Work Phone: [phone]02-07-2024 12:52-0500 Body laqlbp586.4 cmDuncan Haddad MD Work Phone: [facility]02-07-2024 12:52-0500Body mass index (BMI) [Ratio]26.95 kg/l7OeyuduphoDuncan Haddad MD Work Phone: [facility]02-07-2024 12:52-0500Body weefkn19.6 kgDuncan Haddad MD Work Phone: [facility]02-07-2024 12:52-0500Diastolic blood ocmbbixi41 mm[Hg]Duncan Haddad MD Work Phone: [facility]02-07-2024 12:52-0500Heart rate 67 /minDuncan Haddad MD Work Phone: [facility]02-07-2024 12:52-0500Systolic blood ihdpjmos144 mm[Hg]Duncan Haddad MD Work Phone: [facility]01-25-2024 10:48-0500Blood Pressure LocationAurorluna Quintero [facility]01-25-2024 10:48-0500Diastolic blood ptaqvkwt07 mm[Hg]Carmen Quintero [facility]01-25-2024 10:48-0500Heart rate80 /minAurora Orzech [facility]-25-2024 10:48-0500Systolic blood uykawizc946 mm[Hg]Carmen Orjaimeech [facility] [place] 016341-15-2023 12:10-0500Diastolic blood tdopoxrz07 mm[Hg]MD Shaikh Day Work Phone: [facility]11-15-2023 12:10-0500 Systolic blood ozgpgtic522 mm[Hg]MD Shaikh Day Work Phone: [facility]09-05-2023 14:10-0400 Body yhidde443.94 cmLpoornima Temple Other [employer] Other 09-05-2023 14:10-0400Body mass index (BMI) [Ratio] 26.53 kg/i3WizzulKori Temple Other [employer] Other 09-05-2023 14:10-0400Body .1 [degF]Kori Temple Other [employer] Other 09-05-2023 14:10-0400Body prohal89.69 kgKori Temple Other [employer] Other 09-05-2023 14:10-0400Diastolic blood nvmnysgf33 mm[Hg] Kori Temple Other [employer] Other 09-05-2023 14:10-0400Respiratory rate18 /minKori Temple Other [employer] Other 09-05-2023 14:10-0022SwW3% (BldA) [Mass fraction]98 % Kori Windy Other [facility] [employer] Other 09-05-2023 14:10-0400Systolic blood omdtrxto327 mm[Hg] Kori Windy Other [place] [facility] [employer] Other 02-22-2023 09:30-0500Body zhaccl766.94 cmMattbarbara Juarez Other [facility] [employer] Other 02-22-2023 09:30-0500Body mass index (BMI) [Ratio] 28.72 kg/z4Cjvisnqnataly Juarez Other [facility] Other 02-22-2023 09:30-0500Body mebcfzuolly17.8 [degF] Denver Juarez Other [employer] Other 02-22-2023 09:30-0500Body dmuzwv26.95 kgMattbarbara Juarez Other [employer] Other 02-22-2023 09:30-0500Diastolic blood njgqpehh75 mm[Hg] Denver Juarez Other [employer] Other 02-22-2023 09:30-7624WfZ6% (BldA) [Mass fraction]98 % Denver Juarez Other [employer] Other 02-22-2023 09:30-0500Systolic blood idhunzop420 mm[Hg] Denver Juarez Other [employer] Other 10-12-2022 12:12-0400Body sazpddssxjr41.9 [degF]MD Shaikh Day Work Phone: [phone])[address] [place], [place] 4343410-12-2022 12:12-0400 Diastolic blood mm[Hg]MD Shaikh Day Work Phone: 1(419)[address] [place], [place] 4343410-12-2022 12:12-0400 Heart rate95 /minMD Shaikh Day Work Phone: 1(419)[address] [place], [place] 4343410-12-2022 12:12-0400 Respiratory rate16 /minMD Shaikh Day Work Phone: 1(419)[address] [place], [place] 4343410-12-2022 12:12-0400 SaO2% (BldA) [Mass fraction]98 %MD Shaikh Day Work Phone: 1(419)[address] [place], [place] 4343410-12-2022 12:12-0400 Systolic blood uviwemjg188 mm[Hg]MD Shaikh Day Work Phone: 1(419)[address] [place], [place] 4343410-12-2022 04:04-0400 Body yofjus68.6 kg Kishaprakash Work Phone: 1(419)[address] [place], [place] 4343410-11-2022 17:12-0400 Body .48 cm Kishaprakash Work Phone: 1419)[address] [place], [place] 4343410-11-2022 13:57-0400 Diastolic blood arnnwlkx53 mm[Hg]MD Shaikh Day Work Phone: 1(419)[address] [place], [place] 4343410-11-2022 13:57-0400 Heart rate77 /minMD Shaikh Day Work Phone: 1419)[address] [place], [place] 4343410-11-2022 13:57-0400 Respiratory rate16 /minMD Shaikh Day Work Phone: 1419)[address] [place], [place] 4343410-11-2022 13:57-0400 SaO2% (BldA) [Mass fraction]95 %MD Shaikh Day Work Phone: [facility]10-11-2022 13:57-0400 Systolic blood rvzdxeka181 mm[Hg]MD Shaikh Day Work Phone: [facility]10-11-2022 11:24-0400 Body .9 [degF]MD Shaikh Day Work Phone: 1(405)097-[address] [place], [place] 5725610-11-2022 03:56-0400 Body hpwaik495.48 cmMD Kam Kishaprakash Work Phone: 1(281)153-[address] [place], [place] 5725610-11-2022 03:56-0400 Body .9 kgMD Kam Faprakash Work Phone: [facility]08-17-2022 10:15-0400 Body uismms610.94 cmManataly Juarez Other [facility] [employer] Other 08-17-2022 10:15-0400Body mass index (BMI) [Ratio]35.9 kg/g6DxpfzznDenver Juarez Other [place] [facility] [employer] Other 08-17-2022 10:15-0400Body clceqkyaggv24.2 [degF] Denver Juarez Other [facility] Other 08-17-2022 10:15-0400Body jnwvge55.18 kgManataly Juarez Other [employer] Other 08-17-2022 10:15-0400Diastolic blood mm[Hg] Denver Juarez Other [employer] Other 08-17-2022 10:15-9610MrV3% (BldA) [Mass fraction]97 % Denver Juarez Other [employer] Other 08-17-2022 10:15-0400Systolic blood wytrbzap616 mm[Hg] Denver Juarez Other [employer] Other 08-12-2022 14:15-0400Body cqpemj206.94 cmPeggy Das Other [employer] Other 08-12-2022 14:15-0400Body mass index (BMI) [Ratio]35.9 kg/k7Uxbfb Das Other [employer] Other 08-12-2022 14:15-0400Body qqbxipsuhtz72.2 [degF]Ilda Das Other [employer] Other 08-12-2022 14:15-0400Body tegnsx55.18 kgPeggy Das Other [employer] Other 08-12-2022 14:15-0400Respiratory rate18 /minPeggy Das Other [employer] Other 08-12-2022 14:15-4285UyY6% (BldA) [Mass fraction]98 % Ilda Das Other [employer] Other 08-10-2022 17:00-0400Body cjdutc138.94 [facility] Other [facility] Other 08-10-2022 17:00-0400Body mass index (BMI) [Ratio]35.9 kg/f6WsipbzrLos Angeles County [facility] Other [employer] Other 08-10-2022 17:00-0400Body amcffu56.18 kgComatteo Arrington Other [employer] Other 03-23-2022 11:45-0400Body ufawje391.94 cmCbronson lakeview hospitalchristina Arrington Other [employer] Other 03-23-2022 11:45-0400Body mass index (BMI) [Ratio]35.9 kg/k0Fapprfrmatteo Arrington Other [employer] Other 03-23-2022 11:45-0400Body .18 kgSusie Arrington Other [employer] Other 01-20-2022 10:00-0500Body zypnhh472.94 cmMattbarbara Juarez Other [employer] Other 01-20-2022 10:00-0500Body mass index (BMI) [Ratio] 36.27 kg/v1Wajwkgtnataly Juarez Other [employer] Other 01-20-2022 10:00-0500Body jzxskgtqrok77.5 [degF] Denver Juarez Other [employer] Other 01-20-2022 10:00-0500Body pusyte61.09 kgMattbarbara Juarez Other [employer] Other 01-20-2022 10:00-0500Diastolic blood jhclncfy87 mm[Hg] Denver Juarez Other [employer] Other 01-20-2022 10:00-5134YvM5% (BldA) [Mass fraction]99 % Denver Juarez Other [place] [facility] [employer] Other 01-20-2022 10:00-0500Systolic blood cccmuzqc653 mm[Hg] Denver Juarez Other [facility] Other 10-21-2021 10:00-0400Body evfzei837.94 cmMatthew Larry Other [facility] Other 10-21-2021 10:00-0400Body mass index (BMI) [Ratio] 36.27 kg/b2Cjichwa Larry Other [place] [facility] [employer] Other 10-21-2021 10:00-0400Body .09 kgMattbarbara Juarez Other [facility] Other 10-21-2021 10:00-0400Diastolic blood kvvdoyaa94 mm[Hg] Denver Juarez Other [place] [facility] [employer] Other 10-21-2021 10:00-0400Systolic blood edwrdvsf135 mm[Hg] Denver Juarez Other [facility] Other 09-30-2021 10:30-0400Body odyrbz667.94 cmMatthew Larry Other [employer] Other 09-30-2021 10:30-0400Body mass index (BMI) [Ratio]35.9 kg/b1Bemqbmj Larry Other [employer] Other 09-30-2021 10:30-0400Body jrahry41.18 kgMattbarbara Juarez Other [facility] [employer] Other 09-30-2021 10:30-0400Diastolic blood owqqpslw07 mm[Hg] Denver Juarez Other [facility] [employer] Other 09-30-2021 10:30-0400Systolic blood mm[Hg] Denver Juarez Other [facility] [employer] Other Encounters Encounter DateEncounter TypeCare ProviderFacilityStart: 12-03-2024 End: 28-90-8914jwmwhaxedcDjyuKatarzyna Collado NP-C Work Phone: [phone]-[facility]ksk[facility] Health NeurologyStart: 12-03-2024 End: 11-90-8111Hxdwwaq encounter procedureSsara Mcleod APRN-FNP-C-[facility] Work Phone: Start: 11-26-2024 End: 30-54-7799hjijwekdcdHuvtKatarzyna Collado NP-C Work Phone: [facility] Work Phone: Start: 11-26-2024 End: 71-61-9658Eumevqq encounter Monique Collado NP-C-[facility] Thierry Work Phone: Start: 65-21-4029twunikkuvlZbei J Aichholz [facility]: 02-45-4801Tcspjliikh Recurring Cindy Collado NP-C-[facility] TherapyStart: 11-17-2024 End: 32-17-3348vbmyanfybzCkeojk X OrzechFacility:FTMCStart: 11-17-2024 End: 15-47-7982Jxsqdzq encounter procedureAurora X Orzech [facility] Start: 53-24-2500Etiyzcj encounter procedureLisa Heaven DYE WEIGHER HELPER-C Work Phone: [facility]art: 10-08-2024 End: 72-19-0044rbrcclesxfUmnmzw X OrzechFacility:EU [place]uskyStart: 10-08-2024 End: 29-72-0161Ztqezvz encounter procedureAurora X Orzech [facility] Start: 09-29-2024 End: 70-70-6560YrozzsRsfr Aichludmila DYE WEIGHER HELPER Work Phone: noms CWM FMComment on above:Migraine with aura and without status migrainosus, not intractableAnxiety and depressionStart: 09-28-2024 End: 15-78-9671VllhuyJkyg Aichholz DYE WEIGHER HELPER Work Phone: noms CWM FMStart: 09-22-2024 End: 16-95-5905CpznamZgih Aichholz DYE WEIGHER HELPER Work Phone: noms CWM FMComment on above:Psychophysiological insomniaStart: 83-90-9040sccvivuiwyVmjpaam R VASQUEZFacility:EU BellevueStart: 09-15-2024 End: 30-92-6484rfyglvdcepQatjovn R VASQUEZFacility:FTMCStart: 09-15-2024 End: 33-48-5588Mivpmjx encounter procedurePatrick R OVALLE [facility] Start: 09-03-2024 End: 61-19-0360mouuaeiqvtOtmbgsc R WATERSFacility:FTMCStart: 08-21-2024 End: 39-20-8724Kuruculxg Result EncounterGeneric External Data ProviderNOMS External Department UnsolicitedStart: 08-21-2024 End: 54-63-3813Uvfdrqaey Result EncounterGeneric External Data ProviderNOMS External Department UnsolicitedStart: 08-18-2024 End: 89-27-6352khmnclvzhxCsvsijv Poncho OVALLEFacility:FTMCStart: 08-18-2024 End: 08-27-0640Eqjvphq encounter procedureAlexandr OVALLE [facility] Start: 08-17-2024 End: 58-02-3384YusxojQeac Aichholz DYE WEIGHER HELPER Work Phone: noms CWM FMComment on above:Peripheral vascular disease, unspecified (Primary Dx); Atherosclerosis of coronary artery of [place] heart, unspecified vessel or lesion type, unspecified whether angina present ; Stenosis of carotid artery, unspecified lateralityStart: 08-13-2024 End: 40-74-2136gsaesmmfotMrcm J Aichholz Work Phone: [facility] Work Phone: Start: 08-13-2024 End: 78-20-2913Dqlsfcf encounter procedureSolympic [facility] hospital Aretha Mcleod UVJP-KPZ[facility] Work Phone: Start: 08-12-2024 End: 30-09-6822VkdkopHeji Aichholbharati DYE WEIGHER HELPER Work Phone: noms CWM FMComment on above:Primary hypertension ; Anxiety and depression ; Psychophysiological insomnia; Atherosclerosis of coronary artery of [place] heart, unspecified vessel or lesion type, unspecified whether angina present ; Stenosis of right carotid artery; Cerebrovascular accident (CVA), unspecified mechanism (HCC); Migraine with aura and without status migrainosus, not intractableMuscle spasm (Primary Dx)Start: 08-11-2024 End: 90-16-2158Zugppo Elijah Suarezhholz DYE WEIGHER HELPER Work Phone: noms CWM FMStart: 08-11-2024 End: 79-67-5098Uutfew flowsheetLisa Erickhholz DYE WEIGHER HELPER Work Phone: noms [facility] FMStart: 08-11-2024 End: 18-55-2776Xtcukfocf Result EncounterGeneric External Data ProviderNOMS External Department UnsolicitedStart: 08-11-2024 End: 03-62-0480oaapgpvtpuYWFW AICHHOLZNot AvailableStart: 08-11-2024 End: 41-86-4848Prjomu outpatient visit 25 minutesLisa Heaven FLORES Work Phone: noms CWM FMComment on above:Primary hypertension (Primary Dx); Atherosclerosis of coronary artery of [place] heart, unspecified vessel or lesion type, unspecified whether angina present ; CRYSTAL (generalized anxiety disorder) ; Recurrent major depressive disorder, in full remission ; Episode of recurrent major depressive disorder, unspecified depression episode severity ; Overflow incontinence of urine; Psychophysiological insomniaStart: 08-05-2024 End: 51-24-1998rahigigockEVNKWYUZ E PERRYFacility:EU uskyStart: 08-05-2024 End: 45-24-4128Ygeubme encounter procedureJENNIFER E CORRIE [facility] [place] Start: 07-22-2024 End: 50-42-6278qtxavifcyaBYHZNW [facility] Start: 07-16-2024 End: 61-09-6445whrefcfocnEUMJHUDN E PERRYFacility:EU BellevueStart: 07-16-2024 End: 67-37-2412Arhgrtk encounter procedureJENNIFER E CORRIE [facility] [place] start: 07-01-2024 End: 69-40-2902ZbbiruEwuu Aichholz NP Work Phone: noms M FMComment on above:Chronic UTI (Primary Dx); Anxiety and depression (CMS/HCC); Overflow incontinence of urineStart: 06-30-2024 End: 15-37-4625Xbl Drop Dion OVALLE [facility] Start: 06-30-2024 End: 60-33-6637qtpnotoxweTkotymc R WATERSFacility:FTMCStart: 06-30-2024 End: 10-24-9997Vafpttx encounter procedureJENNIFER E CORRIE [facility] [place] Comment on above:Primary progressive aphasia (CMS/HCC) (Primary Dx); Ataxia; Memory difficulty; History of ischemic stroke; Other insomnia; DULCE MARIA (obstructive sleep apnea); Severe episode of recurrent major depressive disorder, without psychotic features (HCC) (CMS/HCC); Severe anxietyStart: 06-30-2024 End: 84-10-1938cqwfoqeofaGAWN Sincere AvailableStart: 06-24-2024 End: 36-79-2295Oqgtdibib Result EncounterSdorinabe Mcleod DYE WEIGHER HELPER Work Phone: NOMS External Department UnsolicitedStart: 06-24-2024 End: 98-92-0983Mcsurbflf Result EncounterSsara Tucker DYE WEIGHER HELPER Work Phone: NOMS External Department UnsolicitedStart: 06-15-2024 End: 24-02-0210Azvcpl Ye Hare PhD Work Phone: aNA SANDUSKYStart: 06-15-2024 End: 95-31-6444Vcfqly Ye Hare PhD Work Phone: ANA SANDUSKYStart: 06-15-2024 End: 28-72-5858xaypptskpgNSXOEGOX E PERRYFacility:EU [place]uskyStart: 06-15-2024 End: 04-30-6605Dhaedlz encounter procedureChaim Hare PhD Work Phone: ANA SANDUSKYComment on above:Expressive aphasia (Primary Dx); Memory difficulty; History of ischemic stroke; Staring episodes; Other insomnia; Stress due to family tensionStart: 2024 End: 74-67-0264Mqtxsr Elijah Collado DYE WEIGHER HELPER Work Phone: NOMS CWM FMStart: 2024 End: 81-79-1942Fnckss Elijah Collado DYE WEIGHER HELPER Work Phone: NOMS CWM FMStart: 2024 End: 19-69-3577Oooiqh outpatient visit 10 minutesCindy Collado DYE WEIGHER HELPER Work Phone: NOMS CWM FMComment on above:Acute diffuse otitis externa of both ears (Primary Dx)Start: 2024 End: 49-48-9865erqybufvnxTUFU AICHDAVIDot AvailableStart: 06-01-2024 End: 00-70-3419Dtxnxp Franco Mcleod DYE WEIGHER HELPER Work Phone: aNA BELLEVUEStart: 06-01-2024 End: 41-14-1381Zllrgl Franco Mcleod DYE WEIGHER HELPER Work Phone: ANA BELLEVUEStart: 06-01-2024 End: 94-57-7791Nemkou outpatient visit 40 minutesJameson Mcleod DYE WEIGHER HELPER Work Phone: ANA BELLEVUEComment on above:Ataxia (Primary Dx); Gait instability; Expressive aphasia; Memory difficulty; History of ischemic strokeStart: 06-01-2024 End: 86-50-7428iggsliwpjpLDCRU CARROLLNot AvailableStart: 05-29-2024 End: 65-47-5641NkxrnnMtng Aichholz DYE WEIGHER HELPER Work Phone: NOMS CWM FMComment on above:Dizziness and giddiness (Primary Dx)Start: 05-12-2024 End: 04-77-6087Tvrxqt flowsJoe Whitingholz DYE WEIGHER HELPER Work Phone: NOMS CWM FMStart: 05-12-2024 End: 27-74-3808Gabmsx flowsheetCindy Whitingholz DYE WEIGHER HELPER Work Phone: NOMS CWM FMStart: 05-12-2024 End: 22-38-8609Isduylyou Result EncounterCindy Collado DYE WEIGHER HELPER Work Phone: noms External Department UnsolicitedStart: 05-12-2024 End: 10-89-4792vewbowowkoFAUR AICHHOLZNot AvailableStart: 05-12-2024 End: 06-19-3277Lavowv outpatient visit 25 minutesLisa Collado DYE WEIGHER HELPER Work Phone: noms CWM FMComment on above:Primary hypertension (CMS/HCC) (Primary Dx); Cerebrovascular accident (CVA), unspecified mechanism (CMS/HCC); Dizziness and giddiness; Overflow incontinence of urine; CRYSTAL (generalized anxiety disorder) (CMS/HCC); Impaired mobility and activities of daily livingStart: 05-05-2024 End: 40-28-8196ozxnojxbetZLPOGOAL E PERRYFacility:FTMCStart: 05-05-2024 End: 11-40-8367Ofg Drop offJENNIFER E CORRIE [facility] Start: 05-05-2024 End: 59-48-4318xzomoyxvxhAXNNPTSF E PERRYFacility:EU [place]kyStart: 04-14-2024 End: 54-65-0616idoedggfetLcbbfg TannaFacility:EU BellevueStart: 04-14-2024 End: 40-79-1135Tnzbnuo encounter procedureLauren Monserrat [facility] Kateryna start: 04-01-2024 End: 97-81-7283Ukj Drop offPatrick R OVALLE [facility] Start: 04-01-2024 End: 63-63-6231fvcgamcljnQrcnbll R WATERSFacility:FTMCStart: 04-01-2024 End: 70-65-8593Tbvujvh encounter procedureJENNIFER E CORRIE [facility] Start: 04-01-2024 End: 08-87-5917psevxjhmnsOT-C JENNIFER E PERRYFacility:EU [place]kyStart: 04-01-2024 End: 69-09-8604Wkhaioq encounter procedureJENNIFER E CORRIE [facility] Start: 02-26-2024 End: 13-23-5041Jjygyf Gordo Erickbeludmila FLORES Work Phone: NOYF CW FMComment on above:Cerebrovascular accident (CVA), unspecified mechanism (CMS/HCC) (Primary Dx); Dysarthria; White matter disease; Stenosis of carotid artery, unspecified laterality; Peripheral vascular disease, unspecified (CMS/HCC); Overflow incontinence of urine; Dizziness and giddinessStart: 02-20-2024 End: 76-82-3812Vma Drop offJENNIFER E CORRIE [facility] Start: 02-20-2024 End: 88-04-3589ydmmwpasjvLQUEWRNT E PERRYFacility:FTMCStart: 02-20-2024 End: 49-79-9855Khzelyb encounter procedureJENNIFER E CORRIE [facility] Start: 02-20-2024 End: 37-33-0248Odxapdx encounter procedureSrudy Day MD Work Phone: [facility] Work Phone: Start: 02-20-2024 End: 64-41-8487kntglbinydIeivqe Fawwad MD Work Phone: [facility] Work Phone: Start: 01-29-2024 End: 05-53-2720ruaxrjtbubSEJH J AICHHOLZFacility:EU [place]kyStart: 01-29-2024 End: 20-06-6269Ikzvepn encounter procedureJEEMMANUEL CLEMENTE [facility] [place] Start: 01-23-2024 End: 12-85-0352EohcjvVoxe Aichholz DYE WEIGHER HELPER Work Phone: noms CWM FMComment on above:Chronic UTI (Primary Dx) Start: 01-21-2024 End: 41-40-5587Pmplge flowsheetLisa Aichholz DYE WEIGHER HELPER Work Phone: noms CWM FMStart: 01-21-2024 End: 31-21-6098Mfysqr flowsheetLisa Aichholz DYE WEIGHER HELPER Work Phone: noms CWM FMStart: 01-21-2024 End: 12-55-3956Mdkcigsy Result EncounterLisa Suarezhholz DYE WEIGHER HELPER Work Phone: noms External Department UnsolicitedStart: 01-21-2024 End: 76-35-3696mipzgiotqgMZYF AICHHOLZNot AvailableStart: 01-21-2024 End: 93-69-7757Zobaii outpatient visit 40 minutesLisa Collado DYE WEIGHER HELPER Work Phone: noms CWM FMComment on above:Primary hypertension (CMS/HCC) (Primary Dx); Heart failure, unspecified (CMS/HCC); Peripheral vascular disease, unspecified (CMS/HCC); Atherosclerosis of coronary artery of [place] heart, unspecified vessel or lesion type, unspecified whether angina present (CMS/HCC); Stenosis of right carotid artery; Recurrent major depressive disorder, in full remission (CMS/HCC); Cerebrovascular accident (CVA), unspecified mechanism (CMS/HCC); Muscle spasm; Iron deficiency; Psychophysiological insomnia; Migraine with aura and without status migrainosus, not intractable (CMS/HCC); CRYSTAL (generalized anxiety disorder) (CMS/HCC); UTI symptoms; Anxiety and depression (CMS/HCC); Overflow incontinence of urine; Chronic UTIStart: 12-12-2023 End: 33-88-3936Qecgofg encounter procedureMD Shaikh Barb Work Phone: [facility] Work Phone: Start: 12-12-2023 End: 90-69-2598yaztwoppisBZ Shaikh Barb Work Phone: [facility] Work Phone: Start: 12-09-2023 End: 89-48-7800Hlmwmb outpatient new 60 minutesChristopher Marbin DO Work Phone: [facility] ST NEUROLOGYComment on above:Ataxia (Primary Dx); History of ischemic strokeStart: 12-09-2023 End: 97-94-0102mxgoxbsikgRIYOOMLCNGJ HASSETTNot AvailableStart: 12-02-2023 End: 81-74-5936Xqorts flowsheetBenjamin W Murcek DO Work Phone: noms ENT SANDUSKYStart: 12-02-2023 End: 18-38-1127Plefne flowsheetBenjamin W Murcek DO Work Phone: n[facility] ENT SANDUSKYStart: 12-02-2023 End: 00-14-0935Ebzvcl outpatient new 45 minutesBenjamin W Murcek DO Work Phone: N[facility] ENT SANDUSKYComment on above:Oropharyngeal dysphagia (Primary Dx)Start: 12-02-2023 End: 52-39-5245GxummvXxep Aichholz DYE WEIGHER HELPER Work Phone: N[facility] CWM FMComment on above:Anxiety and depression (CMS/HCC)Start: 11-19-2023 End: 93-66-9526GbkbffVarx Aichholz DYE WEIGHER HELPER Work Phone: noMS CWM FMComment on above:Urinary tract infection symptoms (Primary Dx)Start: 11-16-2023 End: 11-48-6504Gkfuktqkw Result EncounterLisa Whitingholz DYE WEIGHER HELPER Work Phone: noms External Department UnsolicitedStart: 11-16-2023 End: 29-40-0930Vlmanthcf Result EncounterLisa Césarholz DYE WEIGHER HELPER Work Phone: noms External Department UnsolicitedStart: 10-30-2023 End: 88-22-7303QoautcUlih Erickhholz DYE WEIGHER HELPER Work Phone: noms CWM FMComment on above:Acute cystitis without hematuria (Primary Dx)Urinary tract infection symptoms (Primary Dx)Start: 10-26-2023 End: 28-19-5876Trmjcfvsc Result EncounterLisa Césarholz DYE WEIGHER HELPER Work Phone: noms External Department UnsolicitedStart: 10-26-2023 End: 41-20-0421Vezmaneoz Result EncounterLisa Césarholz DYE WEIGHER HELPER Work Phone: noms External Department UnsolicitedStart: 10-22-2023 End: 25-11-0410Idkvub flowsheetLisa Aichholz DYE WEIGHER HELPER Work Phone: noms CWM FMStart: 10-22-2023 End: 82-26-6053Jngmja flowsheetLisa Aichholz DYE WEIGHER HELPER Work Phone: noms CWM FMStart: 10-22-2023 End: 19-49-4151Hejasy outpatient visit 25 minutesLisa Erickhholz DYE WEIGHER HELPER Work Phone: noms CWM FMComment on above:Oropharyngeal dysphagia (Primary Dx); Dysarthria; Cerebrovascular accident (CVA), unspecified mechanism (CMS/HCC); Atherosclerosis of coronary artery of [place] heart, unspecified vessel or lesion type, unspecified whether angina present (CMS/HCC); Primary hypertension (CMS/HCC); Stenosis of right carotid artery; Mixed hyperlipidemia (CMS/HCC); Dizziness and giddiness; Impaired mobility and activities of daily living; Migraine with aura and without status migrainosus, not intractable (CMS/HCC); Muscle spasm; Anxiety and depression (CMS/HCC); Iron deficiency; Psychophysiological insomniaStart: 10-22-2023 End: 80-95-9725nhbxbxkudjEGFG AICHHOLZNot AvailableStart: 10-09-2023 End: 47-91-6341Roqopn OnlyLisa Collado DYE WEIGHER HELPER Work Phone: N[facility] CWM FMComment on above:Cerebrovascular accident (CVA), unspecified mechanism (CMS/HCC) (Primary Dx); Oropharyngeal dysphagia; DysarthriaStart: 09-11-2023 End: 16-39-3442myvxbhnaijEUZZFG [facility] Start: 09-09-2023 End: 98-17-7726vjjmfcivbcSANOTS FAWWADNot AvailableStart: 08-21-2023 End: 97-79-0228yrhgyzppapRP-C JENNIFER E PERRYFacility:EU [place]uskyStart: 08-21-2023 End: 60-32-5253Ogykape encounter procedureJEEMMANUEL CLEMENTE [facility] [place] Start: 08-21-2023 End: 46-42-6728evftikzritAQXYSD FAWWADNot AvailableStart: 08-08-2023 End: 49-98-2695ygerpafbptDE Barb Work Phone: [facility] Work Phone: Start: 08-08-2023 End: 43-83-7030Abqvwor encounter procedure Shaikh Kishaprakash Work Phone: [facility] Vascular Surgery Work Phone: Start: 07-15-2023 End: 70-76-9104kjvntryochOhgdzb X OrzechFacility:FTMCStart: 07-15-2023 End: 39-76-7542Jzk Drop offAurora X Orzech [facility] Start: 07-15-2023 End: 86-36-0498zgzyxzhihqBvbcip X OrzechFacility:EU [place]kyStart: 07-15-2023 End: 87-38-6671Gjacbjn encounter procedureAurora X Orzech [facility] [place] Start: 07-05-2023 End: 00-28-3880Wxjtmlvmf encounterClairaretha Bowling CMAProMedica Physicians NeurologyComment on above:office notesStart: 07-02-2023 End: 60-62-3910cdtujlxkurYLNHAMC JUSTOMain [facility] Ambulatory PPGStart: 07-02-2023 End: 50-75-9999Qsygus outpatient visit 25 minutesMekatiuska Arita MD Work Phone: [facility] NeurologyComment on above: Functional gait disorder (Primary Dx); DizzinessStart: 06-05-2023 End: 48-18-8869Ymbgaqszt encounterLamelanie JordanLittle Colorado Medical CenterMedims [facility] Start: 84-19-2331Yheajcr encounter procedureCindy Collado NP Work Phone: [facility] HealthcareStart: 05-12-2023 End: 16-46-7774brspdtqfghNsratx TessyFacility:[facility] Start: 05-12-2023 End: 81-47-5690izwwwwjhztMT-C Hannah Still Work Phone: [facility] Work Phone: Start: 05-12-2023 End: 82-84-4180Wvegsst encounter procedureNP-C Hannah Still Work Phone: [facility] Work Phone: Start: 05-11-2023 End: 34-30-7353pwkfwvvjyvAO Shaikh Barb Work Phone: [facility] Work Phone: Start: 05-11-2023 End: 50-57-8153Qirppcz encounter procedureMD Shaikh Day Work Phone: [facility] Urgent Care [place]ierry Work Phone: Start: 05-09-2023 End: 91-84-5401nhyjsaggquGK Shaikh Charlescolton Work Phone: [facility] Work Phone: Start: 05-09-2023 End: 67-95-1192Orlbpbv encounter procedureMD Shaikh Reevesjustin Work Phone: [facility] Vascular Surgery Work Phone: Start: 08-34-3716Rin-patient / Non-visitMD Shaikh Reevesjustin Work Phone: [facility] Vascular Surgery Work Phone: Start: 04-12-2023 End: 15-41-9054Rlbnpwsvwh and management of inpatientMD Shaikh Reevesjustin Work Phone: [facility] Work Phone: Start: 53-45-2698Ybdovucsx encounterLinalfreda Jay Physicians NeurologyComment on above:Sooner ApptStart: 04-09-2023 End: 21-34-8610Pncuqqk encounter procedureMD Shaikh Reevesjustin Work Phone: [facility] Vascular Surgery Work Phone: Start: 94-14-5406WsvhuzMarlo Day MD Work Phone: [facility] CWM IMComment on above:Anxiety and depression (CMS/HCC) (Primary Dx)NEW PATIENT REFERRALStart: 03-20-2023 End: 80-91-6910idbdtkxjwmXHTLOBZHU A [facility] PPG Start: 03-20-2023 End: 04-99-0460Ofgmyv outpatient new 45 minutesMosarita Haddad MD Work Phone: [facility] NeurologyComment on above:Dizzy (Primary Dx); 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 ([facility]-HCC); DizzinessStart: 03-07-2023 End: 86-70-4808xmbrgcgfxyTTJZXA FAWWADFacility:EU [place]kyStart: 03-07-2023 End: 48-36-1306Eszsdrf encounter procedureAurorluna Petersonjaimeecb [facility] Start: 87-08-9020tratgxfrzuZEOYHospital [facility] Ambulatory PPGStart: 03-04-2023 End: 35-38-4310Fzquzochg encounterPaige Gordon [facility] Comment on above:AppointmentStart: 22-87-3355xcjzxczdkfWFMBHospital [facility] Ambulatory PPGStart: 03-01-2023 End: 12-78-1240Ohjecjtvw department patient visitArkansas Surgical [facility] Ambulatory PPGStart: 60-38-9004lzpfptqorwOYIJPW FAWWADFacility:EU NorwalkStart: 09-43-0067shhvveznhkWPMVHospital [facility] Ambulatory PPGStart: 21-90-4225Rvrgefckd encounterSjonathan BurrProMedica Physicians Neurology Comment on above:paperworkStart: 01-21-2023 End: 64-54-4311yinmlgrgcoYO Shaikh Fawwacolton Work Phone: [facility] Work Phone: Start: 01-21-2023 End: 49-96-1715Odmzgjyyuh RecurringMD Shaikh Beardwwacolton Work Phone: [facility]-Physical Therapy Cm RdStart: 10-16-2022 End: 13-24-1888vkxsieyqchPkgirs Bailey Other nort HealthTeacher / [employer] Other Start: 61-55-7893Immjrf outpatient visit 15 minutes Kori WindyFPG Urgent Care ClydeStart: 04-04-2022 End: 52-15-0950cgxafqlxdwLtlmxzb Langenberg Other nort Health[employer] / [employer] Other Start: 75-09-2411Sclsmo outpatient visit 15 minutes Denver MillernorahFPG Vascular SurgeryStart: 03-06-2022 End: 28-28-2653dwobanadptChqiz Keller Other [facility] HealthTeacher / [employer] Other Start: 73-28-1624Alzausyjy encounterEarline HarrisFPUte Urgent Care Memorial Healthcaretart: 03-02-2022 End: 64-42-8939yncpthedgiIQ Marc Naderer Work Phone: [facility] Work Phone: Start: 03-02-2022 End: 89-74-2063Kguetzrr ReferredMD Gerry Godwin Work Phone: [facility]-Lab Main [place] Work Phone: Start: 02-21-2022 End: 66-53-1560rhwtkihlzpKEGMMOT BOESFacility:Y7Oafcf: 02-20-2022 End: 69-38-5949nmiyorlcreHJCJHS H FAWWADFacility:H7Lhbvo: 01-31-2022 End: 09-44-2398pccsdlszbdUTDACT H FAWWADFacility:Z8Gmrqm: 01-22-2022 End: 71-86-2345vhhzgwmkpsULYUBQ H FAWWADFacility:L2Ikyal: 01-18-2022 End: 47-68-5419oxefvgpfrmLGBCEIW DAVIDFacility:K0Gttxs: 01-09-2022 End: 44-62-0091mjnlltpzvaGJ Shaikh Barb Work Phone: [facility] Work Phone: Start: 01-09-2022 End: 85-74-2508Fqwzgyjksy RecurringMD Shaikh Barb Work Phone: [facility]-Speech Therapy [address] RdStart: 01-02-2022 End: 87-69-1504zgfsxljriyWVIVMU H FAWWADFacility:P8Yitmw: 12-07-2021 End: 12-24-3190pgnhkzripcJVWTJA H FAWWADFacility:B7Qfjmz: 11-27-2021 End: 70-25-1349ilywhhpqbnJAZBUF H FAWWADFacility:X9Hoqus: 11-26-2021 End: 24-44-0875hdtcgndzfsKAEWOE H FAWWADFacility:G9Jxrgv: 11-24-2021 End: 56-59-4690Jrsrnbrzm department patient niydb550 [facility] Facility:[id number]: 11-21-2021 End: 47-60-3653Kqwvsjhpkk and management of inpatientMD Shaikh Barb Work Phone: [facility]-3 [place] Med SurgStart: 08-69-2911Sgvpkkmclw RecurringMD Shaikh Barb Work Phone: [facility]-Speech Therapy [address] RdStart: 10-31-2021 End: 70-69-4717askbdsajasMwdloeo Langenberg Other [place] HealthTeacher / [employer] Other Start: 46-29-6659Gsfrsitwu encounterDenver Juarez FPG Referral CoordinatorStart: 10-24-2021 End: 36-00-1155lvzeogfsdyCLXRXS H FAWWADFacility:I9Yqhcb: 10-16-2021 End: 50-07-2193Etqqngvcxt and management of inpatientSHAIKH H FAWWADFacility:H1 Start: 09-27-2021 End: 99-36-8138vosrslbvslEpplayb Langenberg Other [facility] HealthTeacher / [employer] Other Start: 54-18-0880Grmxbm outpatient visit 15 minutes Denver LarryFPUte Vascular SurgeryStart: 09-22-2021 End: 17-03-0253jmzturtvtaHtrus Das Other nort HealthTeacher / [employer] Other Start: 12-44-5038Vkddvh outpatient visit 15 minutes Ildaalyson DasFPG Urgent Care Tilden RoadStart: 09-20-2021 End: 79-09-5279rkwzrfrodcQxippfp Calvey Other [employer] Other Start: 12-05-6267Nosxwa outpatient visit 10 minutes Susie ArringtonFPUte [place] OrthopedicsStart: 09-02-2021 End: 35-73-3031uygipqjsjpVNYYZU H FAWWADFacility:I4Oymhg: 08-31-2021 End: 78-92-7839Xhwxdzj encounter procedureMD Barb Work Phone: [facility]-Ultrasound [facility] VascularStart: 48-04-7164Qfdzgjquec RecurringMD Shaikh Day Work Phone: [facility]-Speech Therapy [facility] Westtart: 99-83-4739xfbbjkrpbsNUGYGIS DAVIDFacility:M0Fwbhw: 08-02-2021 End: 74-91-5186slzlvxgkqfEqcbpiv Calvchetan Other noC[employer] Other Start: 08-02-2021 End: 05-36-5690Eyrqtgf encounter procedureCollchristina CalveyFPG [facility] Start: 07-29-2021 End: 57-82-6333flmpbxexyfARJTLC H FAWWADFacility:E4Iidyv: 07-12-2021 End: 10-36-9788yudulhpjapKnolqsp Calvchetan Other [employer] Other Start: 21-76-0504Daahuc outpatient visit 15 minutes Susie [place] OrthopedicsStart: 07-12-2021 End: 04-14-0714Fyhcmac encounter procedureMD Shaikh Day Work Phone: [facility]-XRay [facility] Start: 06-15-2021 End: 02-35-7477Yrogubdbyj RecurringMD Shaikh Day Work Phone: [facility]-Plant Quality Manager [address]ab[address] RdStart: 05-31-2021 End: 29-73-7399ewggipkfwxFcvlcne Murphy Other [employer] Other Start: 09-71-4949Vylkrk follow up visit related to original pxColleen CalveyFPG [facility] OrthopedicsStart: 05-08-2021 End: 13-66-3265prytcnitbkFAGEGV H FAWWADFacility:N6Luqxh: 05-03-2021 End: 26-81-9501xruhkfaxucJycudwb Murphy Other [employer] Other Start: 64-60-3558Yfvijg follow up visit related to original pxColleen CalveyFPG [facility] OrthopedicsStart: 03-30-2021 End: 25-33-8069hggxhqrtmgARVMPH H FAWWADFacility:T1Gluyh: 03-02-2021 End: 65-49-0834wdzjroaoifUruhzbb Larry Other [employer] Other Start: 43-73-4010Ntlgkz outpatient visit 15 minutes Denver Hill Vascular SurgeryStart: 38-26-9445Twplbc outpatient visit 25 minutesMattbarbara Hill Vascular SurgeryStart: 27-03-7440Megjcy outpatient visit 15 minutesMatthew LarryYUMA REG[facility]AL [facility] Vascular Surgery Procedures DateProcedureProcedure DetailPerforming ClinicianStart: 96-91-9116Oqvrdjdxj of substance into bladder wallAurora Orjaimeech Start: 87-74-4349OI ECHO DOPPLER COMPLETEGeneric External Data ProviderStart: 72-20-8912JN KARSTEN PERF SPECT REST STRGeneric External Data ProviderStart: 10-63-6658AOR HEAD/BRAIN WO/W CONTRJameson Mcleod DYE WEIGHER HELPER Work Phone: Start: 00-02-3188OE CERVICAL SPINE WO/W CONSarabe Mcleod DYE WEIGHER HELPER Work Phone: Start: 32-58-5583BNG CREATININESarah Mcleod DYE WEIGHER HELPER Work Phone: Start: 94-89-0935FBS CBC WITH AUTO DIFFLisa Aicbeholz DYE WEIGHER HELPER Work Phone: Start: 71-10-8823Lbckl dip stick/tablet rgnt non-auto w/o micrscpLisa Heaven DYE WEIGHER HELPER Work Phone: Start: 91-21-3939ZXNYLQL TRACT INFECTION (HTRX)Cindy Heaven DYE WEIGHER HELPER Work Phone: Start: 72-59-7993SFJ UA (CLEAN/CATCH) MICROSCOPIC IF INDICATELisa Aicbeholz DYE WEIGHER HELPER Work Phone: Start: 06-94-2959ORW CBC WITH AUTO DIFFLisa Aichholz DYE WEIGHER HELPER Work Phone: Start: 99-89-3174Yryidcr ultrasonography of bilateral carotid arteriesMD Shaikh Barb Work Phone: Start: 79-04-8043Nynxg cultureMD Shaikh Barb Work Phone: Start: 66-12-4503Fdyyycj ultrasonography of bilateral carotid arteriesMD Shaikh Barb Work Phone: Start: 34-26-5634Trgnj depression screening assessment Марина Hydetart: 59-88-5933GN of head without contrastMD Shaikh Barb Work Phone: Start: 64-94-7295Khnqd chest X-rayMD Shaikh Barb Work Phone: Start: 86-57-9974Auocxxqdcz of Upper Intestinal Tract, Via Natural or Artificial Opening EndoscopicMELAVENIR BEHAVIORAL HEALTH CENTER AT SURPRISEERStart: 10-16-2021 Transfusion of Nonautologous Red Blood Cells into Peripheral Vein, Percutaneous ApproachARKANSAS CHILDREN'S NORTHWEST HOSPITALtart: 85-53-3294Lofbreg ultrasonography of bilateral carotid arteriesMD Shaikh Barb Work Phone: Start: 13-50-4411Ndgri X-ray of right handMD Shaikh Barb Work Phone: Start: 67-55-9113Iffwa X-ray of right handMD Shaikh Barb Work Phone: Start: 05-12-2021 End: 47-59-7067EynlekpxqrkJduf Aicludmila DYE WEIGHER HELPER Work Phone: Arthroplasty of kneeAurora Orzech Blood culture for bacteria, including anaerobic screen MD Shaikh Day Work Phone: Breast surgery (qualifier value)Carmen Orzech Bypass of stomachAurora Orzech HysterectomyAurora Orzech [phone]-TcQ-2, Influenza & RSV (PCR)MD Shaikh Day Work Phone: Urine cultureMD Charlescolton Work Phone: Plan of Treatment DateCare ActivityDetailAuthorStart: 38-12-0571Lymkmbfxv for malignant neoplasm of colonNOMS HealthcareStart: 14-93-3207FZbN,Tdap and Td Vaccines (2 - Tdap) DTaP,Tdap and Td Vaccines (2 - Tdap)[facility] SystemStart: 02-01-2025 ambulatoryAmbulatoryFacility:SIRI HendersonmidlandyStart: 69-21-4583Xajbwjqwc vaccination Influenza Vaccine (#1)NOMS HealthcareComment on above:Postponed from 10/13/2023 (Patient Does Not Have Time)Start: 11-12-2024 End: 78-34-9350Gruoziv encounter klxiycinc99/02/2025 9:40 AM EDT Office Visit [facility] [address] [place] [address] Cindy Collado, DYE WEIGHER HELPER [address] [place] [address] NOMS CW FMStart: 22-72-4428Ojixidwjw vaccinationInfluenza Vaccine (#1)NOMS HealthcareStart: 08-13-2024 End: 38-45-8458Enlzjjn encounter /03/2025 2:40 PM EDT Office Visit JAIME HENDERSONUSKGwendolyn Youssef[address] [place] [address] Jameson Mcleod NP [address] [place] [address] JAIME CLAUDIAGRAEMEChaseapopka: 08-11-2024 End: 44-22-0386Oceqxfz encounter wrynjewpf24/01/2025 9:00 AM EDT Office Visit [facility] [address] [place] [address] Cindy Collado, DYE WEIGHER HELPER [address] [place] [address] [facility] FMStart: 07-15-2024 End: 30-59-8142Beanedr encounter tupcvoidu44/04/2025 10:20 AM EDT Office Visit JAIME Galindo [address] [address] [place] [address] Jameson Mcleod, DYE WEIGHER HELPER [address] [place] [address] JAIME Anderson: 90-24-5838Kfwea BMI ScreeningAdult BMI ScreeningFormerly [facility], [facility] CAretart: 15-93-2852Ooofpvm ScreeningTobacco ScreeningLima City Hospital Start: 06-30-2024 End: 91-68-7030Bixxusz encounter aqhgukadl92/20/2025 9:00 AM EDT Office Visit JAIME [place]AR[place] [address] [place] [address] aNA SHILPAYStart: 06-15-2024 End: 03-18-8482Ynkckje encounter sbljcowsz84/05/2025 10:30 AM EDT Office Visit JAIME [place] [address] [place] [address] Chaim Hare, PhD [address] [place] [address] JAIME GALLEGOSYStart: 06-07-2024 End: 64-08-6986Ozqvkixoq (Vitamin B12) [Mass/volume] in Serum or PlasmaVitamin B12 Lab Routine Ataxia Expressive aphasia Memory difficulty Expected: 06/07/2024 (Approximate), Expires: 06/01/2025[facility] Work Phone: comment on above:Expected: 06/07/2024 (Approximate), Expires: 06/01/2025Start: 06-07-2024 End: 51-53-2547IB Brain WO and W contrast IVMR brain w and wo contrast routine Imaging Routine Ataxia Gait instability Expressive aphasia Memory difficulty History of ischemic stroke Expected: 06/07/2024 (Approximate), Expires: 06/07/2025N[facility] HealthcareComment on above:Expected: 06/07/2024 (Approximate), Expires: 06/07/2025Start: 06-07-2024 End: 90-94-4572XE Cervical spine WO and W contrast IVMR cervical spine w and wo contrast Imaging Routine Ataxia Gait instability Expected: 06/07/2024 (Ap proximate), Expires: 06/07/2025N[facility] HealthcareComment on above:Expected: 06/07/2024 (Approximate), Expires: 06/07/2025Start: 06-07-2024 End: 01-48-5890Kgknpvurzbm [Units/volume] in Serum or PlasmaTSH Lab Routine Ataxia Expressive aphasia Memory difficulty Expected: 06/07/2024 (Approximate), Expires: 06/07/2025N[facility] HealthcareComment on above:Expected: 06/07/2024 (Approximate), Expires: 06/07/2025Start: 2024 End: 08-39-1535Cctcoyj encounter jtggdhjvy75/23/2025 10:30 AM EDT Office Visit [facility] [address] [place] [address] Cindy Collado, DYE WEIGHER HELPER [address] [place] [address] ArrivedCOALINGA STATE [facility] FMComment on above:ArrivedStart: 06-02-2024 Medicare Annual Wellness (AWV)Medicare Annual Wellness (AWV)[facility] Start: 06-01-2024 End: 31-88-2826Kucbgtv encounter procedureANA BELLEVUEComment on above:Arrived Start: 05-12-2024 End: 79-71-4885Mwazj metabolic 1998 panel - Serum or PlasmaBasic metabolic panel Lab Routine Primary hypertension (CMS/HCC) Expected: 05/12/2024 (Approximate), Expires: 05/12/2025N[facility] HealthcareComment on above:Expected: 05/12/2024 (Approximate), Expires: 05/12/2025Start: 05-12-2024 End: 74-49-2821JUB W Auto Differential panel - BloodCBC and differential Lab Routine Cerebrovascular accident (CVA), unspecified mechanism (CMS/HCC) Exp ected: 05/12/2024 (Approximate), Expires: 05/12/2025[facility] Work Phone: Comment on above:Expected: 05/12/2024 (Approximate), Expires: 05/12/2025Start: 81-90-3482Opmpr BMI ScreeningAdult BMI Screening [facility] SystemStart: 70-27-6517Fqtdheqzpi ScreeningDepression Screening [facility] CAretart: 70-73-3820Mzxhkwu ScreeningTobacco Screening [facility] SystemStart: 19-88-9290Csydg brachial pressure indexBarney Children's Medical Centertart: 02-03-2024 End: 58-71-8510Dxvolwz encounter jxixqdiif43/23/2024 9:20 AM EST Office Visit [facility] [address] [facility] [address] [place] [address] Jameson Mcleod NP [address] [place] [address] NOMS NEUROLOGYStart: 01-21-2024 End: 96-64-6593Assoldrl identified in Urine by CultureUrine culture (clean catch) Microbiology Routine UTI symptoms Expected: 01/21/2024 (Approximate), Ex giovanny: 01/20/2025[facility] Work Phone: Comment on above:Expected: 01/21/2024 (Approximate), Expires: 01/20/2025Start: 01-21-2024 End: 29-54-6853RSXMHRQ TRACT INFECTION (HTRX)URINARY TRACT INFECTION (HTRX) Lab Routine UTI symptoms Expected: 01/21/2024 (Approximate), Expires: 01/20/2025[facility] HealthcareComment on above:Expected: 01/21/2024 (Approximate), Expires: 01/20/2025Start: 01-21-2024 End: 28-71-0709Xvatcff encounter cmsddrboz74/10/2024 9:40 AM EST Office Visit [facility] [address] [place] [address] Cindy Collado NP [address] [place] [address] OLGA YEPEZ FMStart: 01-14-2024 End: 77-50-1210Oyanrli encounter wsauiulct36/03/2024 11:00 AM EST Office Visit [facility] [address] [place] [address] [place] [address] [place] [address], [address], [address], [address] [place] [phone] (Work) [facility] Start: 12-24-2023 End: 66-60-5649Ycaeyrv encounter lulzthcmm31/12/2024 9:15 AM EST Office Visit [facility] [place] [address] [place] [phone] Aime Clark, DO [address] [place] [address] [facility] SHILPAYStart: 12-09-2023 End: 05-91-2963Mmlqe zavphxwyqaa62/28/2024 Abstract [facility] [address] [place] [address] Nakul Zazueta, DO [address] [place] [address] [facility] NEUROLOGYStart: 12-09-2023 End: 46-33-2989Qhgoofa encounter /28/2024 9:00 AM EDT Office Visit [facility] [address] [place] [address] Nakul Zazueta, DO [address] [place] [address] [facility] NEUROLOGYStart: 12-02-2023 End: 87-96-7838XO Esophagus Views W barium contrast POFL esophagus barium swallow Imaging Routine Oropharyngeal dysphagia Expected: 12/02/2023 (Approximat e), Expires: 12/01/2024N[facility]S HealthcareComment on above:Expected: 12/02/2023 (Approximate), Expires: 12/01/2024Start: 12-02-2023 End: 35-63-0690VG Pharynx and Cervical esophagus Views W barium contrast POFL esophagus pharynx Imaging Routine Oropharyngeal dysphagia Expected: 12/02/2023 (Approximate), Expires: 12/01/2024[facility] Work Phone: comment on above:Expected: 12/02/2023 (Approximate), Expires: 12/01/2024Start: 12-02-2023 End: [id number] encounter procedureNOMS ENT SANDUSKYComment on above: Oropharyngeal dysphagiaStart: 10-30-2023 End: [id number] identified in Urine by CultureUrine culture (clean catch) Microbiology Routine Urinary tract infection symptoms Expected: 10/30/19 24 (Approximate), Expires: 10/29/2024[facility] Work Phone: Comment on above:Expected: 10/30/2023 (Approximate), Expires: 10/29/2024Start: 10-30-2023 End: 03-77-1874Aknkawkgum complete panel - UrineUrinalysis with reflex microscopic (clean catch) Lab Routine Urinary tract infection symptoms Expected: 10/30/2023 (Approximate), Expires: 10/29/2024[facility] HealthcareComment on above: Expected: 10/30/2023 (Approximate), Expires: 10/29/2024Start: 10-22-2023 End: [id number], urine, randomAlbumin, urine, random Lab Routine Primary hypertension (CMS/HCC) Expected: 10/22/2023 (Approximate), Expires: 10/21/2024 [facility] HealthcareComment on above:Expected: 10/22/2023 (Approximate), Expires: 10/21/2024Start: 10-22-2023 End: [id number] W Auto Differential panel - BloodCBC and differential Lab Routine Cerebrovascular accident (CVA), unspecified mechanism (CMS/HCC) Ath erosclerosis of coronary artery of [place] heart, unspecified vessel or lesion type, unspecified whether angina present (CMS/HCC) Expected: 10/22/2023 (Approximate), Expires: 10/21/2024[facility] Work Phone: Comment on above:Expected: 10/22/2023 (Approximate), Expires: 10/21/2024Start: 10-22-2023 End: 15-96-2077Hcqthggacassm metabolic 2000 panel - Serum or PlasmaComprehensive metabolic panel Lab Routine Primary hypertension (CMS/HCC) Mixed hyperlipidemia (CMS/HCC) Expected: 10/22/2023 (Approximate), Expires: 10/21/2024[facility] HealthcareComment on above:Expected: 10/22/2023 (Approximate), Expires: 10/21/2024Start: 10-22-2023 End: 39-44-4293Xwzqg 1996 panel - Serum or PlasmaLipid panel Lab Routine Cerebrovascular accident (CVA), unspecified mechanism (CMS/HCC) Atherosclerosis of coronary artery of [place] heart, unspecified vessel or lesion type, unspecified whether angina present (CMS/HCC) Mixed hyperlipidemia (CMS/HCC) Expected: 10/22/2023 (Approximate), Expires: 10/21/2024[facility] HealthcareComment on above:Expected: 10/22/2023 (Approximate), Expires: 10/21/2024Start: 10-22-2023 End: 34-29-1685Rzvibskiqq complete panel - UrineUrinalysis with reflex microscopic (clean catch) Lab Routine Primary hypertension (CMS/HCC) Expected: 10/22/2023 (Approximate), Expires: 10/21/2024[facility] HealthcareComment on above: Expected: 10/22/2023 (Approximate), Expires: 10/21/2024Start: 10-22-2023 End: 95-46-8099Grlkdyu encounter procedureNOME CW FMComment on above:Arrived Start: 44-54-8376Xedslawat vaccinationNOME HealthcareStart: 54-47-2361Hjjmrvs referralOhiohealth Nelsonville Health Center Work Phone: Start: 20-28-0111Mjjgxqi ultrasonography of bilateral carotid arteriesUS carotid doppler [facility] End: 73-22-9315Kibfnyn encounter bitpzfzwa09/21/2024 9:00 AM EDT Office Visit [facility] [address] [place] [address] Martin Arita MD [address] [place] [address], [address], [address], [address] [place] [address] [facility] NeurologyStart: 2023 End: 98-62-7283Lecbmla encounter dcjtpobfg94/22/2024 6:30 PM EDT Office Visit [facility] [address] [place] [address] Shaikh Day MD [address] [place] [address] [facility] IMStart: 96-67-5617Zidnsdfd identified in Urine by CultureBarney Children's Medical Centertart: 27-18-6261OdlnlwuitBarney Children's Medical Centertart: 00-07-8153Woaspryz admissionBarney Children's Medical Centertart: 35-59-3464Xgyeccer Embolic Filtration, Extracorporeal Flow Reversal Circuit from Right Common Carotid Artery,Percutaneous Approach, [employer] 6Cerebral Embolic Filtration, Extracorporeal Flow Reversal Circuit from Right Common Carotid Artery,Percutaneous Approach, [employer] 6 [facility] Centertart: 38-29-3287Lxtdzumx of Right Internal Carotid Artery with Intraluminal Device, Open ApproachDilation of Right Internal Carotid Artery with Intraluminal Device, Open ApproachBarney Children's Medical Centertart: 03-12-2023 End: 09-42-5067Etiysmx encounter ydcykldnq10/30/2024 10:00 AM EST Office Visit [facility] [address] [place] [phone] Alan Elmore MD [address] [place] [address], [address], [address] [place] [address] [facility] NeurologyStart: 38-95-6183XROCA-19 Vaccine ( season)COVID-19 Vaccine ()[facility] SystemStart: 07-99-1277Kfbweymn identified in Urine by CultureUrine CultureBarney Children's Medical Centertart: 11-22-2021 Comprehensive metabolic 2000 panel - Serum or PlasmaBarney Children's Medical Centertart: 64-39-2159Fyyfxqjnt measurementMercy Health Lorain Hospital Start: 11-22-2021 End: 22-47-9507FwsaetsbvBarney Children's Medical Centertart: 93-96-4129Xjjohas referral to dietitianBarney Children's Medical Centertart: 48-89-4279Bmzgziin to cardiologistBarney Children's Medical Centertart: 01-68-5302Lkorkamq admissionBarney Children's Medical Centertart: 57-88-8199Rerhswlq therapy procedureBarney Children's Medical Centertart: 32-68-6486Gqhrdupz to occupational therapistBarney Children's Medical Centertart: 11-21-2021 [facility] Centertart: 91-08-7639Vmugsss ultrasonography of bilateral carotid arteriesUS carotid doppler [facility] Start: 96-76-9556CW.doppler Carotid arteries - [facility] Work Phone: Start: 88-00-1490Fafj Risk ScreeningFall Risk ScreeningMetroHealth Cleveland Heights Medical Center SystemStart: 39-76-3658Gdptqtbqtaezsu of varicella zoster vaccineZoster (Shingles) Vaccine (1 of 2)[facility]St. [facility] SystemStart: 08-04-0543Qkwfvszfy for malignant neoplasm of breastMammogramNOMS Healthcare Start: 42-11-2563Ehfkl BMI Follow Up PlanAdult BMI Follow Up PlanMetroHealth [facility] Medical Center SystemStart: 44-56-3221Ksmtw BMI ScreeningAdult BMI ScreeningProSt. Vincent Hospital SystemStart: 13-07-1707Fthmqmdjqt ScreeningDepression ScreeningMetroHealth Cleveland [facility] Medical Center SystemStart: 43-23-1683Uwkgfvr ScreeningTobacco ScreeningMetroHealth Cleveland Heights Medical Center SystemStart: 04-23-1949Medicare Annual Wellness (AWV)Medicare Annual Wellness (AWV)[facility] HealthcareStart: 04-23-1949Medicare Annual Wellness VisitMedicare Annual Wellness VisitProSt. Vincent Hospital SystemStart: 31-93-3850Ybexnswxs for malignant neoplasm of colonNOMS HealthcareAnkle brachial pressure indexMercy Health Lorain HospitalBacteria identified in Blood by CultureMercy Health Lorain HospitalBacteria identified in Urine by CultureMercy Health Lorain HospitalBlood culture for bacteria, including anaerobic screenBlood CultureMercy Health Lorain HospitalPatient EducationMercy Health St. [facility]'S [facility]tr Work Phone: Patient referralMercy Health St. Rita'S [facility] Work Phone: Urine cultureUrine CultureMercy Health Lorain HospitalUS.doppler Carotid arteries - [facility] US.doppler Carotid arteries - [facility] US.doppler Carotid arteries - [facility] Immunizations Immunization DateImmunizationNotesCare LfbizaobGjlkzdwp53-68-8689zrahwriwy virus vaccine, unspecified formulationAurora Orzech [facility]09-28-2024Seasonal trivalent influenza vaccine, adjuvanted, preservative freeLisa Heaven DYE WEIGHER HELPER Work Phone: [facility] CenterYtfjxztnbn26-62-9479bvogjqpyg virus vaccine, unspecified formulationBenjamin Murcek DO Work Phone: [facility] Fffoztwj47-68-4869qfriurbhm virus vaccine, unspecified formulationAurora Orzech [facility]y10-14-2023Influenza, Seasonal, Quadrivalent, AdjuvantedSrudy Day MD Work Phone: [facility] CenterLxntmmhcoq10-38-7011Yzirmnrgfadt Conjugate PCV 20 Shaikh Barb VIDES Work Phone: [facility] CenterJxxogynffs39-12-2808KIG vaccine preF3, recombinantAurora Orzech [facility] [place] 016340-14-2023RSV, recombinant, protein subunit RSVpreF, adjuvant reconstitu, 120mcg/0.5mL, PF (Arexvy)Shaikh Barb VIDES Work Phone: [place] [address]Buawxztwgy26-17-3490gcwvbkxfc virus vaccine, unspecified formulationAurora Orzech [facility] [place] 016342-10-2022Influenza, Seasonal, Quadrivalent, AdjuvantLoren Day MD Work Phone: [facility] CenterHebqvopzvg58-23-2646ufavhbsft virus vaccine, unspecified formulationAurora Orzech [facility] [place] 016340-16-2021Influenza, Seasonal, Quadrivalent, AdjuvantedSrudy Day MD Work Phone: [facility] CenterSwluomkjzx87-24-4749rfajtujjei, tetanus toxoids and pertussis vaccineSrudy Day MD Work Phone: [facility] CenterVsbvrnthiv78-94-4135PUOTS-76 Ad26.COV2.S (Clarence)MD Shaikh Day Work Phone: [facility]10-28-2020influenza virus vaccine, unspecified formulationAurora Orzech [facility]y10-28-2020Influenza, High-dose Seasonal, Quadrivalent, Preservative Free Shaikh Barb VIDES Work Phone: [facility] CenterBvibmluabl33-72-5994kfzhsqnde virus vaccine, unspecified formulationAurora Orzech [facility] [place] 016341-11-2019influenza, high dose seasonal, preservative-freeShaikh Barb VIDES Work Phone: [facility] CenterFypiamotnb05-45-4025evxfw rvuvblqca-O3N3-15, preservative-free, injectableShaikh Barb VIDES Work Phone: [facility] CenterXlnedgvasy16-60-1730hlujvxehm virus vaccine, unspecified formulationJENNIFER CORRIE [facility]02-12-2002influenza, seasonal, injectableLisa Heaven DYE WEIGHER HELPER Work Phone: [facility] CenterPgjnbadvzm01-30-0793Mt(adult) unspecified formulationJENNIFER CORRIE [facility]02-12-2002tetanus and diphtheria toxoids, not adsorbed, for adult use Cindy Heaven DYE WEIGHER HELPER Work Phone: [facility] Payers DatePayer CategoryPayerPolicy [id number] [id number] (Managed Care)[employer] [id number] 2019Medicare [id number] [id number] 2..[id number]-pay [id number] .1.038681.3.579.2.73213-25-9821Ersfvbk9885956 2.16.840.1.097846.3.579.2.34035-99-9539Khgtqrk4584154 2.16.840.1.210448.3.579.2.90325-04-4206Ctaybvl0279078 2.16.840.1.675458.3.579.2.34911-05-0784Hwtulws4614440 2.16840.1.943767.3.579.2.92140-82-8752Sqcnaea3451637 2.16840.1.334994.3.579.2.70540-55-8123Hgusffw8051838 2.16840.1.117366.3.579.2.64271-95-7594Elpbqqj5228456 2.840.1.002824.3.579.2.06153-87-4801Spaezuj2489767 2.16840.1.624007.3.579.2.11409-17-9419Gtdtvqf4130092 2.840.1.756137.3.579.2.80067-80-7076Agsnazy2008564 2.16840.1.251160.3.579.2.89063-58-5944Lmseqch7300067 2.16840.1.259496.3.579.2.72570-73-6609Chykaal4858862 2.16840.1.025670.3.579.2.00418-93-5707Qnhbmiq9028088 2.16840.1.125808.3.579.2.99421-50-0268Kvwnnhh6483614 2.16840.1.845037.3.579.2.53704-36-0447Jxpqemp5180879 2.16840.1.883185.3.579.2.40432-43-2172Xlrfaig7713682 2.16840.1.274086.3.579.2.18761-32-2632Vszdolj0793386 2.16840.1.645308.3.579.2.03784-22-0112Hfrnoco4854971 2.16840.1.138604.3.579.2.28954-92-0837Envtqwh90063903 2.16840.1.957117.3.579.2.023911-87-7727Ikzuajg82799551 2.16840.1.923196.3.579.2.849208-04-7099Lcoumpi52760234 2.840.1.410018.3.579.2.664083-42-5967Klwbyqz49329396 2.840.1.007542.3.579.2.877872-71-3657Ejsuzxc70170690 2.840.1.836940.3.579.2.774967-89-8562Pnxlzwd57050376 2.840.1.193649.3.579.2.646339-10-0457Jmlagqt34969598 2.840.1.453975.3.579.2.661730-17-5093Taymfch60786858 2.840.1.157373.3.579.2.461631-41-3511Ekpkknx65116697 2.840.1.365747.3.579.2.298289-42-7739Puexsiy74676913 2.16840.1.026613.3.579.2.183635-31-7977Jaedekm26411706 2.16840.1.237063.3.579.2.901050-87-6848Khoptxi49636110 2.16.840.1.603045.3.579.2.449706-59-5684Zbdlalj43066196 2.16.840.1.625777.3.579.2.335482-13-9739Cuikfym5783629 2.16.840.1.960933.3.579.2.751170-65-0932Wtwcjjd27348840 2.16.840.1.419680.3.579.2.63877-42-7725Ngzpvrh72226425 2.16840.1.529900.3.579.2.19415-71-6888Jivnjmm07119416 2.16840.1.615764.3.579.2.80199-31-9297Etlndlt27788153 2.16840.1.814983.3.579.2.54910-58-7564Naqxkvr26473652 2.16840.1.546825.3.579.2.60231-54-4169Rledetc92757029 2.16840.1.514102.3.579.2.87230-36-6043Hhdodjr47148605 2.16840.1.864991.3.579.2.77154-28-8595Qxbkxyq43548141 2.16840.1.869184.3.579.2.89408-99-4338Nmjbbpt26711770 2.16840.1.122820.3.579.2.86489-33-9106Hmerpsz13471322 2.16840.1.304431.3.579.2.89063-15-6270Ghzobkg36435397 2.16840.1.055132.3.579.2.55180-86-0285Vjbidje42021478 2.16.840.1.348530.3.579.2.93327-14-0328Cyfnqwj69477599 2.16.840.1.195843.3.579.2.51334-14-0229Swefsmb87946344 2.16840.1.239876.3.579.2.78606-61-2188Hdagnsa32141554 2.16840.1.887785.3.579.2.70827-12-1856Eohmpyk73727525 2.16840.1.706171.3.579.2.93567-84-6098Vkaolbz75727156 2.16840.1.567955.3.579.2.96727-43-7930Oftrupi55813772 2.840.1.224041.3.579.2.19167-11-0097Kygbvyj03713002 2.16840.1.352324.3.579.2.448854-91-8355Ryvzbbk2850910 2.16840.1.729515.3.579.2.688671-88-2481Fyyzkal6433825 2.16840.1.161565.3.579.2.475010-54-2696Pldvphq8581082 2.16840.1.182360.3.579.2.145654-77-4416Dzqgupx3169092 2.16840.1.210786.3.579.2.272225-24-7015Xnoefun4137249 2.16840.1.021081.3.579.2.076820-04-4612Cmqubla6575292 2.16840.1.426712.3.579.2.886025-98-3897Ijfvuhv7791784 2.16840.1.355678.3.579.2.433430-54-7484Enixjad8952333 2.16840.1.064809.3.579.2.950059-65-2769Ihgaugi1659255 2.16840.1.628160.3.579.2.061250-43-3072Anzlzza0753941 2.16840.1.957648.3.579.2.129274-22-1960Xlurqqd2047169 2.16840.1.247070.3.579.2.651479-43-6774Eyyungb89872990 2.16840.1.666558.3.579.2.84948-74-6384Rvfmlhe86757769 2.840.1.737772.3.579.2.28330-95-9258Poqznuy22051929 2.840.1.940890.3.579.2.77368-55-1911Wklemwr53265036 2.840.1.970113.3.579.2.62424-81-4419Cztwehj38320493 2.840.1.723032.3.579.2.37194-27-0747Eoombvr51006146 2.16840.1.836881.3.579.2.96529-32-6147Tuvvbnn70623970 2.16840.1.921707.3.579.2.60434-22-6223Diixeue33463142 2.16840.1.161647.3.579.2.37541-23-7056Sviwmzp58566075 2.16840.1.166995.3.579.2.51745-14-3779Impahnx14836059 2.16840.1.201609.3.579.2.66820-29-7890Apsmetn84884632 2.16.840.1.643705.3.5[id number] vc0e2jnh-82y4-1954-358i-3g9gkdz297e7Antjcdg21162223 2.16.840.1.494042.3.579.2.589Hbvuafj07820639 2..840.1.494042.3.579.2.531 Pywqevv32016526 2.840.1.451519.3.579.2.531 Social History DateTypeDetailFacilityStart: 03-06-2023 End: 98-90-1427Xrj [facility]-31-2021 End: 72-12-9618Puvzyup smoking status NHISEx-smoker (finding)[facility]: 30-14-2142Ruw [facility] At [facility]: 03-07-2023 End: 79-99-3601Bcjoqel smoking statusNever smoked tobacco (finding)[facility] Hospitaltory of tobacco useCurrent smokerNOMS HealthcareHistory of tobacco useCigarette SmokerNOMS HealthcareStart: 02-20-2023 End: 01-66-7699Mlozkpw use and exposureSmokeless tobacco non-userN[facility]S Healthcare Start: 03-06-2023 End: 24-73-9476Lyuwdsh intakeLifetime non-drinker (finding)[facility] HealthcareStart: 03-06-2023 End: 23-66-6141Xiflfzr of Social functionNOMS HealthcareStart: 97-22-5576Xxx Assigned At BirthNot on fileNOME HealthcareTobacco smoking statusNeverExecutive Urology of [facility] SanduskyHistory of tobacco usePassive smokerNOMS HealthcareDo you belong to any clubs or organizations such as druze groups, unions, fraternal or athletic groups, or school groups?NoN[facility] Healthcare Are you now , , , , never or living with a partner?MarriedNOMS HealthcareHow often to you have a drink containing alcohol?NeverNOMS HealthcareDo you feel stress - tense, restless, nervous, or anxious, or unable to sleep at night because yourmind is troubled all the time - these days [OSQ]Very muchNOMS Healthcare(I/We) worried whether (my/our) food would run out before (I/we) got money to buy more.Never trueN[facility] Healthcare Start: 02-20-2024 End: 06-07-9152JwhWdstim (finding)[facility] HospitalDo you feel stress - tense, restless, nervous, or anxious, or unable to sleep at night because yourmind is troubled all the time - these days [OSQ]Not at allNOMS HealthcareStart: 08-25-2018 End: 59-77-1745Odoscfsxl beverage intakeCurrent non-drinker of alcohol (finding) [facility] 4Less SystemSA[facility] How often do you need to have someone help you when you read instructions, pamphlets, or other written material from your doctor or pharmacy [SILS]SometimesN[facility] Medical Equipment Procedure CodeEquipment CodeEquipment Original TextEquipment IdentifierDates Transcarotid artery revascularization (TCAR)Bare-metal carotid artery stent ()[id number] FDAStart: 88-10-4229WUEQ, fracture, wristOrthopaedic fixation plate, non-bioabsorbable, sterile()[id number] FDAStart: 95-80-1968KGLI, fracture, wristOrthopaedic bone screw, non- bioabsorbable, non-sterile()[id number] FDAStart: 62-92-7364RVJC, fracture, wristOrthopaedic bone screw, non-bioabsorbable, non-sterile()[id number] FDAStart: 25-41-2840IJPP, fracture, wristOrthopaedic bone screw, non- bioabsorbable, non-sterile()[id number] FDAStart: 51-92-5427LHUU, fracture, wristOrthopaedic bone screw, non-bioabsorbable, non-sterile()[id number] FDAStart: 88-72-5713Kwufqtdkxqxcpg, carotidCardiovascular patch, animal-derived ()[id number] FDAStart: 80-77-0573Elk Crd Rvl Linq Rpl [id number] - [id number] - [id number]_xzeYzjew: 04-08-2018 Goals DatePatient GoalDesired Activity/StatePersonal health goalComment on above: Evaluation of progress towards goal: return home with self care and family supportPersonal health goalComment on above: Evaluation of progress towards goal: Return home with self care and family support and resume outpatient therapy. Functional Status BqccCokbytnvyoRbzqgfYzmhfwsn26-31-5826Hbyklmbtay StatusN/AExecutive [facility]rology of [facility] Hospitalue02-19-2025Functional StatusN/AExec[facility] of [facility] Hospitaly07-10-2024Functional StatusN/A [facility] Hospitaly2024Functional StatusN/AExec[facility]y03-01-2024 Functional statusPatient at BaselineMount [facility] Work Phone: [phone]qc StatusN/AExecutive [facility]rology of [facility] Hospitaly10-12-2022Functional statusPatient at BaselineOhiohealth Nelsonville [facility] Work Phone: [phone]lxpekpqfi statusPatient Not at Baseline [facility] Work Phone: Mental Status TsuuErfinsjxipVtdtqdBcososwb05-52-5642Mzzaxpkbn functionCognitive Status Patient at BaselineMount [facility]el [facility] Work Phone: [phone] 421-919010-844332-65-9645Yppncnkip functionCognitive Status Patient at BaselineOhiohealth [facility]ville [facility] Center Work Phone: [phone]mfaodh functionCognitive Status Patient Not at BaselineOhiohealth Nelsonville [facility] Center Work Phone: Clinical Notes 11-10-2020 to 11-26-2024 Note Date & KkpoCrlxLbzmokyb87-09-7618 Evaluation note* Diagnosis Onset Date Resolution Status Admit Date Dizziness and giddiness acuteOctober 2024 9:05amEpisode of recurrent major depressive disorder acuteOctober 2024 9:05amEssential hypertensionacuteOctober 2024 9:05amGAD (generalized anxiety disorder)acuteOctober 2024 9:05amMigraine with aura and without status migrainosus, not intractableacuteOctober 2024 9:05amAtaxiachronicOctober 2024 11:35amGait instabilitychronicOctober 2024 11:35amIschemic strokechronicOctober 2024 11:35amAphasiadeleted December 03, 2024 11:35am [facility] Work Phone: [phone] 152-868908-28-2025 Hospital Discharge instructions Patient Education 10/08/2024 09:45:11 Urinary Incontinence Urinary Incontinence Urinary incontinence refers [...] (electrical nerve stimulation). ?For women, using a caregivers non medical to prevent urine leaks. This is a [...] right after experiencing incontinence. General instructions Take owyq-izk-wsldsmo and prescription medicines only as told by [...] important. Where to find more information National [place] of Diabetes and Digestive and Kidney Diseases: www.niddk.nih.gov [place] [employer]: www.urologyhealth.org Contact a health care [...] provider. Document Revised: 09/02/2020 Document Reviewed: 09/02/2020 [employer] Patient Education 2023 [employer]Page. 10/08/2024 09:45:10 Urinary Tract Infection, Adult Urinary Tract Infection, [...] Treatment for this condition includes: Antibiotic medicine. Dfjp-jty-mcaqpik medicines to treat discomfort. Drinking enough water [...] Follow these instructions at home: Medicines Take wukl-moa-gkmcbil and prescription medicines only as told by [...] provider. Document Revised: 09/04/2020 Document Reviewed: 09/09/2020 [employer] Patient Education 2023 [employer]Page. Follow Up Care 09/09/2024 14:35:59 With:MITRA Quintero APRN, JAYESH Whaley, URL Address: When: Unknown Comments:4 mos [facility] Loki 08-28-2025 NotePatient Education Obstetrics and Gynecology Urinary Tract [...] this condition includes: ??? Antibiotic medicine. ??? Zsvs-yrl-pqyhyrz medicines to treat discomfort. ??? Drinking enough [...] these instructions at home: Medicines ??? Take vezc-rke-mmipeyh and prescription medicines only as told by [...] Make sure you di (more content not included)...[facility]08-12-2025 NotePatient Education Custom Cystoscopy with Botox injection ??? Voiding after the procedure: there may be some pain, burning, urgency, frequency and blood tinged urine following the procedure. These symptoms usually resolve within 2-5 days. Drink the amount of fluid it takes to keep the urine pink to yellow or clear in color. Drinking enough water and fluids will help to ease any discomfort after your procedure. ??? It may take a few days to a week to notice a gradual improvement in the overactive bladder symptoms. ??? If you are having problems that seem out of the ordinary, please call. ??? If unable to contact your physician and you feel it is an emergency, go to the nearest emergency room or call 911 ??? Do not lift more than fifteen pounds for 1-2 days. If you see a lot of blood, you probably did too much. ??? Diet ??? you may resume your normal diet. ??? Pain control ??? You may take extra strength Tylenol or Motrin for discomfort. ??? Call if you have a fever over 100 degrees.[facility] 09-22-2024 NoteHistory and Physical Patient: OZZIE GIFFORD Age: 74 years Sex: Female : 1950 Associated Diagnoses: None Author: Alexandr OVALLE MD Preoperative Information Indication for surgery: Urge Incontinence. Accompanied by: Spouse. Source of history: Self. Chief Complaint Urge Incontinence Review of Systems Constitutional: Negative. Ear/Nose/Mouth/Throat: Negative. Respiratory: No shortness of breath. Cardiovascular: No palpitations. Gastrointestinal: Negative. Genitourinary: Urge Incontinence. Integumentary: Negative. Neurologic: Alert and oriented X4. Health Status Allergies: Allergic Reactions (Selected) Severity Not Documented Penicillin- No reactions were documented. Current medications: Home Medications (20) Active amLODIPine 2.5 mg Tab aspirin 81 mg Chew Tab , Chewed, Daily BACLOFEN 20MG TAB 0 Cipro 500 mg Tab 500 mg = 1 tab(s), Oral, Daily ClonazePAM 0.5 mg Tab doxycycline hyclate 100 mg Cap 100 mg = 1 cap(s), Oral, Daily doxycycline hyclate 100 mg Cap 100 mg = 1 cap(s), Oral, BID Estrace 0.1 mg/g Cream See Instructions FeroSul 325 mg oral tablet , Oral, TID Lasix 20 mg Tab 10 mg = 0.5 tab(s), Oral, Daily methenamine hippurate 1 g oral tablet 1 gm = 1 tab(s), Oral, BID metoprolol 25 mg ER Tab , Oral, Daily Myrbetriq 50 mg oral tablet, extended release 50 mg = 1 tab(s), Oral, Daily Potassium Chloride (Wia-Brbn-Gmh M10) 10 mEq oral tablet, extended release quetiapine 50 mg oral tablet rosuvastatin 20 mg Tab topiramate 50 mg Tab trospium 60 mg oral capsule, extended release 60 mg = 1 cap(s), Oral, qAM vibegron 75 mg oral tablet 75 mg = 1 tab(s), Oral, Daily Vitamin C See Instructions Problem list: All Problems Stroke / SNOMED CT 298174643 / Confirmed Headache / SNOMED CT 86605585 / Confirmed Hypertension / SNOMED CT [id number] / Confirmed Dysuria / SNOMED CT 47512088 / Confirmed Incontinence without sensory awareness / SNOMED CT [id number] / Confirmed White matter disease / SNOMED CT 9067338125 / Confirmed UTI (urinary tract infection) / SNOMED CT 402263508 / Confirmed Recurrent UTI / SNOMED CT 049692570 / Confirmed ESBL (extended spectrum beta-lactamase) producing bacteria infection / SNOMED CT [id number] / Confirmed ESBL E coli urine Canceled: Mixed incontinence / SNOMED CT [id number] Histories Family History: Primary malignant neoplasm of female breast Mother Primary malignant neoplasm of bone Father Primary malignant neoplasm of brain Mother Procedure history: Colonoscopy (procedure) ([id number]) on 05/12/2021 at 70 Years. Knee replacement (572067392). Breast surgery (1630376972). Hysterectomy (281672898). Gastric bypass (2816453525). Social History Social & Psychosocial Habits Tobacco 07/16/2024 Tobacco Use: Never (less than 100 in l Smokeless tobacco use: Never Concerns about tobacco use in household: No Smoking Cessation Yes . Physical Examination General: Alert and oriented, No acute distress. HENT: Normocephalic. Neck: Supple. Respiratory: Respirations are non-labored, Symmetrical chest wall expansion. Cardiovascular: Normal peripheral perfusion. Gastrointestinal: Soft. Musculoskeletal Normal strength. Integumentary: Warm, Dry, [place]. Neurologic: Alert, Oriented. Psychiatric: Cooperative, Appropriate mood & affect. Impression and Plan Diagnosis Urge incontinence (UTO30-GI N39.41, Working, Medical). Condition: Stable. Counseled: Patient, Regarding diagnosis, Regarding treatment.[facility] HospitalComment on above:Result Comment: Electronically Signed By: VASQUEZ VIDES, Alexandr Banks.dannielle\Date and Time Signed: 09/22/24 07:57 [id number] Hospital Discharge instructions Patient Education 08/18/2024 09:19:23 EU - Cystoscopy with Urethral Dilation Discharge Instructions (CUSTOM) Cystoscopy with Urethral Dilation Voiding after the procedure: there may be some pain, urethral bleeding, burning, urgency, frequencyand blood tinged urine following the procedure. These symptoms usually resolve within 2-5 days. Drink the amount of fluid it takes to keep the urine pink to yellow or clear in color. Drinking enough water and fluids will help to ease any discomfort after your procedure. If you are having problems that seem out of the ordinary, please call. If unable to contact your physician and you feel it is an emergency, go to the nearest emergency room or call 911 Diet you may resume your normal diet. Activity you may resume your normal activities Call if you have a fever over 100 degrees Follow Up Care 07/20/2024 12:07:40 With:Alexandr OVALLE Address: [address] [place] [address]- Business (1) When: Unknown Comments:Office will call to schedule follow up [facility] 07-08-2025 NotePatient Education Custom Cystoscopy with Urethral Dilation ??? Voiding after the procedure: there may be some pain, urethral bleeding, burning, urgency, frequency and blood tinged urine following the procedure. These symptoms usually resolve within 2-5 days.Drink the amount of fluid it takes to keep the urine pink to yellow or clear in color. Drinking enough water and fluids will help to ease any discomfort after your procedure. ??? If you are having problems that seem out of the ordinary, please call. ??? If unable to contact your physician and you feel it is an emergency, go to the nearest emergency room or call 911 ??? Diet ??? you may resume your normal diet. ??? Activity ??? you may resume your normal activities ??? Call if you have a fever over 100 degreesFostoria City Hospital 08-13-2024 Evaluation note* Diagnosis Onset Date Resolution Status Admit Date Ataxia chronicJuly 2024 2:44pmGait instabilitychronicJuly 2024 2:44pmIschemic strokechronicJuly 2024 2:44pmPrimary progressive aphasiachronicJuly 2024 2:44pm [facility] Work Phone: 1(389) 567-341307-01-2025 History of Present illness Narrative* Cindy Collado NP - 08/11/2024 5:55 PM EDTAssociated Problem(s): Psychophysiological insomnia At this point I will reach out to neurology for help with this Letter to follow * Cindy Collado NP - 08/11/2024 5:54 PM EDTAssociated Problem(s): Overflow incontinence of urine Continue with urology * Cindy Collado NP - 08/11/2024 9:00 AM EDT [...] Size: Adult long) Pulse 58 Temp 97.8 F (Temporal) Resp 19 Wt 158 lb 12.8 oz SpO2 97% BMI 30.00 kg/m Smoking Status Former BSA 1.76 m Physical Exam Vitals and nursing note [...] Episode of recurrent major depressive disorder * Cindy Collado NP - 08/11/2024 7:41 AM EDTAssociated Problem(s): CRYSTAL (generalized anxiety disorder) Has been on klonopin for some time OARRS reviewed * Cindy Collado NP - 08/11/2024 7:41 AM EDTAssociated Problem(s): Coronary atherosclerosis Continue with cardiology, swelling in legs ??heart failure related Is on statin, asa, b jimmy and amlodipine Check lipids yearly and prn dose changes Had stress test 08/10/24 * Cindy Collado NP - 08/11/2024 7:41 AM EDTAssociated Problem(s): Primary hypertension Please check blood pressure daily and record DASH diet Limit caffeine Take medication as directed Contact office if chest pain, pressure, dizziness, shortness of breath, swelling legs Recommend slow position changes Current meds: asa, amlodipine, metoprolol XL documented in this encounterCameron Regional Medical [id number] NoteUT Cardiology - [facility] Subjective Ozzie Gifford is a [...] visit of 03/05/2022 with nurse practitioner Diana Dozier, she was complaining of symptoms of chest discomfort that were suggestive of possible angina. Imdur was added. In the past year she was admitted to the [facility] in October 2022 and February 2023 due to TIA symptoms. She and her son tell me that she underwent redo right carotid surgery in 2023 at [facility]. Today she reports that she has been [...] rub. No gallop. Pulmonary: (more content not included)...[facility] 07-16-2024 Hospital Discharge instructions Patient Education [...] You may also have very sensitive muscles thatmake your bladder squeeze too soon. This condition [...] your health care provider. General instructions Take ilrd-vob-euekwuu and prescription medicines only as told by your health care provider. If you were prescribed an antibiotic medicine, take it as told by your health care provider. Do notstop taking the antibiotic even if you start [...] provider. Document Revised: 10/17/2020 Document Reviewed: 10/17/2020 [employer] Patient Education 2023 NextPage. Follow Up Care 07/03/2024 14:11:33 With:[facility] Address: When: Unknown Comments:For procedure as scheduled. [facility] 06-05-2025 NotePatient Education Obstetrics and Gynecology Overactive Bladder, Adult [...] You may also have very sensitive muscles thatmake your bladder squeeze too soon. This condition [...] health care provider. General instructions ??? Take yiql-osa-eoofgod and prescription medicines only as told by your health care provider. ??? If you were prescribed an antibiotic medicine, take it as told by your health care provider. Donot stop taking the antibiotic even if you start to feel better. ??? Use any implants or pessary as told by your health care provider. ??? If needed, wear pads to absorb urine leakage. ??? Keep a log to track how much and when you drink, and whe (more content not included)...[facility]05-20-20[facility] History of Present illness Narrative* Chaim Hare, PhD - 06/30/2024 9:00 AM EDT Images from the original note were not included. Neuropsychology Chaim Hare, PhD NEUROPSYCHOLOGICAL EVALUATION Ozzie Gifford is a [...] No history of alcohol/substance abuse or smoking. [place] language Spanish. Competed high school education. 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 Has 2 [...] design 2-5th %ile. Motor/Speed of Processing: Right-handed. Sports Official strength 21st %ile with right- hand, 2nd %ile with left. Speeded graphomotor transcoding 1st %ile. Attention/Working Memory: Auditory attention/working memory <1st %ile (3 digits forward, 2 digits backward, 2 digits during sequencing). Speeded visual scanning/attention 38th %ile. Speeded visualdivided attention 14th %ile. Speech/Language: Fumbled with speech [...] 16th %ile. Recognition discriminability 2nd %ile. Forced-choice 16. Immediate recall for prose passages 1st %ile, delayed 2nd %ile. Recognition 3- 9th %ile. Immediate recall for a variety of geometric figures 3rd %ile, delayed 16th %ile. Recognition 17-25th %ile. Executive Functioning: Novel problem-solving and cognitive flexibility 11-16th %ile, 1/6 categoriescompleted in 64 sorts. Responding highly perseverative. Borderline [...] of this individual. Please contact me with anyquestions at [phone]. documented in this encounterCameron Regional Medical [id number] History of Present illness Narrative* Chaim Hare, PhD - 06/15/2024 10:30 AM EDT Images from the original note were not included. Chaim Hare, PhD NEUROBEHAVIORAL STATUS EXAMINATION Ozzie Gifford is [...] No history of alcohol/substance abuse or smoking. [place] language Spanish. Competed high school education. 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 Has 2 biological children, one living. Son last year and apparently family is convinced patient and had something to do with this. They have been completely cutoff from family and legal is involved. This is a significant contributing stressor. MEDICAL HISTORY/MEDICATION: Past Medical History: Diagnosis Date Arthritis Chronic back pain Depression ([facility]) Disturbance of skin sensation 12/02/2015 HTN (hypertension) ([facility]) Muscle spasm 12/02/2015 Myoclonus 12/02/2015 Obesity MEDICATIONS: [...] of this individual. Please contact me with [employer] at [phone]. documented in this encounterCameron Regional Medical [id number] History of Present illness Narrative* Cindy Collado NP - 2024 12:41 PM EDTAssociated Problem(s): Acute diffuse otitis externa of both ears No evidence of TM perforation Will prescribe atb drops, for 10 days, if not better fu in office * LYNSEY LOZANO - 2024 10:30 AM EDT Headache pain Both ear pain- bleeding For about a week or so now More dizzy 5/5- neuropsch assessment Waiting to hear from [facility] for MRI on brain 6/4-fu appt with jameson SANDOVAL * Cindy Collado, DYE WEIGHER HELPER - 2024 10:30 AM EDT Images from the original note were not included. Ozzie Gifford is a 74 y.o. female presents with chief complaint of Hypertension HPI: Headache pain Both ear pain- bleeding For about a week or so now More dizzy 5/5- neuropsch assessment Waiting to hear from [facility] for MRI on brain 6/4-fu appt with jameson SANDOVAL Earache There is [...] not better fu in office Relevant Medications soquyfeb-qaiumzxzx-remedanchhkxqe (Cortisporin) otic solution documented in this encounterCameron Regional Medical [id number] Instructions* Patient Instructions* Cindy Collado NP - 2024 10:30 AM EDT Ear drops: 4 drops each ear three times daily for 10 days, if not better contact the office documented in this encounterCameron Regional Medical [id number] History of Present illness Narrative* Jameson Mcleod NP - 06/01/2024 1:20 PM EDT Images from the original note were [...] was previously diagnosed with, functional gait, in [place], [place]. She notices a tremor every once in awhile but nothing significant. She reports intermittent numbness and tingling in the bilateral hands (left > right) but is unable to say where exactly this is located. She denies focal weakness. The patient and her report memory difficulty in the patient with unclear date of onset. Thepatient denies sudden onset of memory impairment and states it just started to gradually worsen. She states today, I'm okay if I could remember things, and laughs. The patient and her statethe patient can repeat questions frequently. She, at times, has difficulty verbalizing what she wants to say. They deny loss of consciousness or seizure-like activity. The patient denies feelings of depression or anxiety. She lives at home with her and remains independent with all activities of daily living and medication management. She is not driving. She does not sleep well and will sanjay etimes stay awake until 3:00 am to 4:00 [...] tremors, speech difficulty, numbness (see HPI) and headaches.Negative for seizures, syncope, facial asymmetry, weakness and [...] wrist extensors , wrist flexor , and poiser balance strength 4+/5. LUE strength deltoid , biceps , triceps , wrist extensors , wrist flexor , and poiser balance strength 4+/5. RLE strength iliopsoas, quadriceps, tibialis [...] knee reflex 1+. Stephens's sign negative. Coordination: Ukxzzd-gt-arrz testing bilateral dysmetria. Substantial truncal ataxia noted. Gooe-fd-szqx testing bilateral dysmetria. Rapid alternating movements mild bradykinesia in the bilateral upper extremities. Gait: Unsteady. Being assisted by her . Unable to tandem walk. Review and summary of old records: MOCA score at [facility] on 06/01/2024: 15 with 4/5 recall. MRI of the brain [...] for a structural lesion including degenerative cervical spinedisease or cord compression which may be contributing to the patient's symptoms. This could be debilitating if not promptly identified and treated - Continue at home physical and occupational therapy exercises - Fall prevention measures discussed - As clonazepam, topiramate, and Seroquel can contribute to ataxia, I recommend the patient attemptto reduce use of these medications with the prescribing provider - We will keep in mind consideration for testing levodopa responsiveness at follow up - Would consider referral to a tertiary care center such as [facility] or [facility] neurology at follow upfor further evaluation and treatment of ataxia/gait instability pending results of work up. Of note, the patient was evaluated by [facility] neurology in June 2023 and diagnosed with [...] process which may be contributing to the patient'ssymptoms - Check labs (vitamin B12 and TSH) - Referral for neuropsychological for detailed evaluation of the patient's cognitive function to help determine the most likely etiology of symptoms History of ischemic stroke The patient has a history of dizziness. She had a substantial problem in February 2023 and was evaluated at [facility] where she had a CT head, CTA of the head and neck, and MRI of the brain. MRI brain at the time was negative/unremarkable for acute pathology. However, there was evidence of multifocal old ischemic infarcts. The patient does take aspirin and a statin medication for this.LDL was 44 which is within goal for [...] stroke and educated the patient to seek emergentcare in the emergency department if she develops [...] needed for new or worsening symptoms. Jameson Mcleod NP [facility] documented in this [facility]04-21-20[facility] Instructions* Patient Instructions* Jameson Mcleod NP - 06/01/2024 1:20 PM EDT - MRI of the brain and cervical spine () - Check labs - Referral for neuropsychological evaluation documented in this encounterCameron Regional Medical [id number] History of Present illness Narrative* LYNSEY LOZANO - 05/12/2024 1:40 PM EDT After the doxycycline hyclate 100mg she is to start the methenamine hippurate 1g tab. Is is also taking the vitamin c 500 daily D-mannose 500 1 daily Probiotics with cranberry 1 daily Had a BP of 156/74 at home * Cindy Collado NP - 05/12/2024 1:40 PM EDT Images from the original note were [...] Items Addressed This Visit Cerebrovascular accident (CVA) ([facility]) - Primary Continue w neurology Cont statin, asa and blood pressure meds Is receiving Home Health services Relevant Orders CBC and differential Primary hypertension ([facility]) Please check blood pressure daily and record [...] with home health CRYSTAL (generalized anxiety disorder) ([facility]) Has been on klonopin for some time OARRS reviewed * Cindy Collado NP - 05/12/2024 7:05 AM EDTAssociated Problem(s): Impaired mobility and activities of daily living Continue with home health * Cindy Collado NP - 05/12/2024 7:05 AM EDTAssociated Problem(s): CRYSTAL (generalized anxiety disorder) ([facility]) Has been on klonopin for some time OARRS reviewed * Cindy Collado NP - 05/12/2024 7:05 AM EDTAssociated Problem(s): Overflow incontinence of urine Continue with urology * Cindy Collado NP - 05/12/2024 7:05 AM EDTAssociated Problem(s): Primary hypertension ([facility]) Please check blood pressure daily and record DASH diet Limit caffeine Take medication as directed Contact office if chest pain, pressure, dizziness, shortness of breath, swelling legs Recommend slow position changes Current meds: asa, amlodipine, metoprolol XL * Cindy Collado NP - 05/12/2024 7:04 AM EDTAssociated Problem(s): Dizziness and giddiness Continue with Neurology * Cindy Collado NP - 05/12/2024 7:04 AM EDTAssociated Problem(s): Cerebrovascular accident (CVA) ([facility]) Continue w neurology Cont statin, asa and blood pressure meds Is receiving Home Health services documented in this [facility]04-01-[facility] Instructions* Patient Instructions* Cindy Collado NP - 05/12/2024 1:40 PM EDT Get labs checked No med dose changes Please do your exercises daily documented in this [facility]03-04-2025 Hospital Discharge instructions Patient Education 04/14/2024 13:55:52 [...] You may also have very sensitive muscles thatmake your bladder squeeze too soon. This condition [...] your health care provider. General instructions Take vnmi-kgx-ubtgkgh and prescription medicines only as told by your health care provider. If you were prescribed an antibiotic medicine, take it as told by your health care provider. Do notstop taking the antibiotic even if you start [...] provider. Document Revised: 10/17/2020 Document Reviewed: 10/17/2020 [employer] Patient Education 2023 NextPage. 04/14/2024 13:55:47 Urinary Tract Infection, Adult Urinary [...] Treatment for this condition includes: Antibiotic medicine. Jppi-tyn-xewrxjz medicines to treat discomfort. Drinking enough water [...] Follow these instructions at home: Medicines Take lbwu-uky-ncbntuk and prescription medicines only as told by [...] provider. Document Revised: 09/04/2020 Document Reviewed: 09/09/2020 [employer] Patient Education 2023 NextPage. Follow Up Care 04/14/2024 10:07:35 With:BERNICE CLEMENTE PA-C, URL Address: [place] [address] When: Unknown Comments:F/U in 3 months [facility] 03-04-2025 NotePatient Education Obstetrics and Gynecology Overactive Bladder, Adult [...] You may also have very sensitive muscles thatmake your bladder squeeze too soon. This condition [...] health care provider. General instructions ??? Take czsz-fqk-egiovzm and prescription medicines only as told by your health care provider. ??? If you were prescribed an antibiotic medicine, take it as told by your health care provider. Donot stop taking the antibiotic even if you start to feel better. ??? Use any implants or pessary as told by your health care provider. ??? If needed, wear pads to absorb urine leakage. ??? Keep a log to track how much and when you drink, and whe (more content not included)...[facility]02-19-[facility] Hospital Discharge instructions Patient Education 04/01/2024 10:30:58 [...] You may also have very sensitive muscles thatmake your bladder squeeze too soon. This condition [...] your health care provider. General instructions Take xsdx-uiu-zmimlqg and prescription medicines only as told by your health care provider. If you were prescribed an antibiotic medicine, take it as told by your health care provider. Do notstop taking the antibiotic even if you start [...] provider. Document Revised: 10/17/2020 Document Reviewed: 10/17/2020 [employer] Patient Education 2023 NextPage. Follow Up Care 01/29/2024 11:53:51 With:BERNICE CLEMENTE PA-C, URL Address: [address] [address] When: Unknown [facility] [place] [id number] NotePatient Education Obstetrics and Gynecology Overactive Bladder, Adult [...] You may also have very sensitive muscles thatmake your bladder squeeze too soon. This condition [...] health care provider. General instructions ??? Take tbjq-tpd-snopjhj and prescription medicines only as told by your health care provider. ??? If you were prescribed an antibiotic medicine, take it as told by your health care provider. Donot stop taking the antibiotic even if you start to feel better. ??? Use any implants or pessary as told by your health care provider. ??? If needed, wear pads to absorb urine leakage. ??? Keep a log to track how much and when you drink, and whe (more content not included)...[facility]01-15-20[facility] History of Present illness Narrative* Cindy Collado NP - 02/26/2024 4:06 PM EST amb documented in this encounterCameron Regional Medical [id number] Evaluation note* Diagnosis Onset Date Resolution Status Admit Date Carotid stenosis acuteJanuary 2024 10:00amInternal carotid artery stent presentacuteJanuary 2024 10:00amLower extremity edemaacuteJanuary 2024 10:00amPAD (peripheral artery disease)acuteJanuary 2024 10:00am [facility] Work Phone: 1(665) 191-416212-18-2024 NoteUrology Office/Clinic Note HPI Staff Pt is [...] office today for recurrent UTIs by Cindy Aichoholz DYE WEIGHER HELPER. Pt currently be treatedfor UTI. UCx listed [...] yes avoids baths/hot tubs yes avoids scented [employer] products no urinates after sexual activity n/a [...] 01/29/2024 12:42:57. . Documentation recorded by the scribaretha German accurately reflects the services(s) I performed and decisions made by me. Authenticated by Bernice Clemente PA-C on 01/29/2024 14:48:22. Follow-up With When Contact Information BERNICE CLEMENTE PA-C, URL [address] [place] [address] Additional Instructions: F/U 2-3 months [...] mg ER Tab, Oral, Daily Potassium Chloride (Ftj-Rhhw-Snt M10) 10 mEq oral tablet, extended release quetiapine 50 mg oral tablet rosuvastatin 20 mg Tab topiramate 50 mg Tab trospium 60 mg oral (more content not included)...[facility] Comment on above:Result Comment: Electronically Signed By: BERNICE CLEMENTE PA-C\.br\Date and Time Signed: 01/28/2414:48 EST\.br\Electronically Co-Signed By: Kori German PA-C\.br\Date and Time Co-Signed: 01/29/2412:49 [id number] Hospital Discharge instructions Patient Education 01/29/2024 12:46:53 [...] Treatment for this condition includes: Antibiotic medicine. Hesv-yus-mpkvdhr medicines to treat discomfort. Drinking enough water [...] Follow these instructions at home: Medicines Take ilik-ybz-fbukutk and prescription medicines only as told by [...] provider. Document Revised: 09/04/2020 Document Reviewed: 09/09/2020 [employer] Patient Education 2023 [employer] 01/29/2024 12:46:48 Urinary Incontinence Urinary Incontinence Urinary [...] (electrical nerve stimulation). ?For women, using a caregivers non medical to prevent urine leaks. This is a [...] right after experiencing incontinence. General instructions Take xcmf-yru-dhohgyl and prescription medicines only as told by [...] important. Where to find more information National [place] of Diabetes and Digestive and Kidney Diseases: www.niddk.nih.gov [place] [employer]: www.urologyhealth.org Contact a health care [...] provider. Document Revised: 09/02/2020 Document Reviewed: 09/02/2020 [employer] Patient Education 2023 NextPage. Follow Up Care 01/28/2024 10:11:46 With:BERNICE CLEMENTE PA-C, URL Address: [address] [address] When: Unknown Comments:F/U 2-3 months [facility] [place]oki [id number] NotePatient Education Obstetrics and Gynecology Urinary Tract [...] this condition includes: ??? Antibiotic medicine. ??? Trpc-nvz-yzzrpou medicines to treat discomfort. ??? Drinking enough [...] these instructions at home: Medicines ??? Take qodz-ffe-wtxtdyg and prescription medicines only as told by [...] Make sure you di (more content not included)...[facility]12-12-2024 History of Present illness Narrative* Cindy [...] treated with bactrim by Fawwad 02/20/23 ecoli documented in this encounterCameron Regional Medical [id number] History of Present illness Narrative* Cindy Collado NP - 01/21/2024 11:59 AM ESTAssociated Problem(s): Chronic UTI Contacted urology , they ask w put in new referral for urology, although was last seen in 09/03 Will refer back to urology Today's culture pending 11/16/23 e coli, tx macrobid 10/26/23 Klebsiella bactrim 06/03/23: no culture, treated with bactrim by Fawvitaliyd 02/20/23 ecoli * Cindy Collado NP - [...] deficiency Labs stable, cont current meds * Cindy Collado NP - 01/21/2024 10:42 AM ESTAssociated Problem(s): Cerebrovascular accident (CVA) (CMS/HCC) Continue w [...] List Items Addressed This Visit Coronary atherosclerosis ([facility]) Continue with cardiology Is on statin, asa, b jimmy and amlodipine Check lipids yearly and prn dose changes Relevant Medications aspirin (Aspirin Adult Low Strength) 81 MG chewable tablet rosuvastatin (Crestor) 20 MG tablet Cerebrovascular accident (CVA) ([facility]) Continue w neurology Cont statin, asa and blood pressure meds Relevant Medications aspirin (Aspirin Adult Low Strength) 81 MG chewable tablet rosuvastatin (Crestor) 20 MG tablet Primary hypertension ([facility]) - Primary Please check blood pressure daily [...] Recurrent major depressive disorder, in full remission ([facility]) Takes klonopin prn, topirmate, seroquel as well Migraine with aura and without status migrainosus, not intractable ([facility]) Continue with topirimate Relevant Medications topiramate 50 MG tablet Overflow incontinence of urine Will reach out to Urology office to get an appt with them Relevant Orders Ambulatory referral to Urology Carotid artery stenosis Statin, asa, vascular monitoring Relevant Medications rosuvastatin (Crestor) 20 MG tablet Heart failure, unspecified ([facility]) Current meds: lasix, bblocker, crestor and amlodipine [facility] Does have LE edema noted as well today, no dyspnea Peripheral vascular disease, unspecified ([facility]) On statin, asa CRYSTAL (generalized anxiety disorder) ([facility]) Has been on klonopin for some time [...] Urology Other Visit Diagnoses Anxiety and depression (CMS/HCC) Relevant Medications clonazePAM (KlonoPIN) 0.5 MG tablet * Cindy Collado NP - 01/21/2024 6:46 AM ESTAssociated Problem(s): Migraine with aura and without status migrainosus, not intractable (CMS/[facility]) Continue with topirimate * Cindy Collado NP - 01/21/2024 6:46 AM ESTAssociated Problem(s): Muscle spasm Takes baclofen * Cindy Collado NP - 01/21/2024 6:45 AM ESTAssociated Problem(s): CRYSTAL (generalized anxiety disorder) ([facility]) Has been on klonopin for some time OARRS reviewed * Cindy Collado NP - 01/21/2024 6:39 AM ESTAssociated Problem(s): Recurrent major depressive disorder, in full remission ([facility]) Takes klonopin prn, topirmate, seroquel as well * Cindy Collado NP - 01/21/2024 6:39 AM ESTAssociated Problem(s): Carotid artery stenosis Statin, asa, vascular monitoring * Cindy Collado NP - 01/21/2024 6:38 AM ESTAssociated Problem(s): Coronary atherosclerosis (CMS/HCC) Continue with cardiology, swelling in legs ??heart failure related Is on statin, asa, b jimmy and amlodipine Check lipids yearly and prn dose changes * iCndy Collado NP - 01/21/2024 6:38 AM ESTAssociated Problem(s): Heart failure, unspecified (CMS/HCC) Current meds: lasix, bblocker, crestor and amlodipine [facility] Does have LE edema noted as [...] asa, amlodipine, metoprolol XL documented in this [facility]12-10-2024 Instructions* Patient Instructions* Cindy Collado NP - 01/21/2024 9:40 AM EST We will enroll you in Chronic Care Management with [facility] Ordered antibiotic, if we need to change atb based on culture will let you know I will call Urology office too to get you in documented in this encounterCameron Regional Medical [id number] History of Present illness Narrative* Nakul Zazueta DO - 12/09/2023 9:00 AM EDT Images from the original note were not included. Chief complaint: Dizziness and imbalance Subjective Ozzie Gifford, 73 y.o., female HPI Ozzie, 73 y.o., female presents today for consultation at the request of Cindy Kohli NP for dizziness, impaired mobility and migraines. Recently seen at [facility]. A CT head, CT angio neck/head and [...] Diagnosis Date Arthritis Chronic back pain Depression (CMS/[facility]) Disturbance of skin sensation 12/02/2015 HTN (hypertension) [...] , wrist extensors , wrist flexor , poiser balance strength 5/5. LUE Strength deltoid , biceps , triceps , wrist extensors , wrist flexor , poiser balance strength 5/5. RLE Strength illopsoas, quadriceps, tibialis [...] negative. Coordination: Substantial truncal ataxia noted. Abnormal enhrbj-zu-iwrc testing. Abnormal hesu-lf-ajpu testing. Gait: Patient has a substantially magnetic [...] that the patient has substantial ataxia on fakktf-jl-fmfj testing, she also hastruncal ataxia noted when closing her eyes and difficulty with ucgl-gj-vvqi. She has an ataxic gaitas well. This [...] patient has requested these be done at [facility] only. We will keep in mind consideration for testing levodopa responsiveness at follow up Patient may need to be referred to tertiary care center such as [facility] to evaluate for any potential research opportunities or alternative treatment options. History of ischemic stroke It is my impression that the patient has been having 6-9 months of dizziness. The patient did have this as a quite substantial problem in February of 2023 and was actually seen at [facility] where she had CT, CT angiogram [...] monitoring of the patient. documented in this encounterCameron Regional Medical [id number] History of Present illness Narrative* Aime Clark DO - 12/02/2023 1:30 PM EDT Subjective Patient [...] Ambulatory referral to ENT documented in this encounterCameron Regional Medical [id number] History of Present illness Narrative* Cindy Collado NP - 10/22/2023 11:19 AM EDTAssociated Problem(s): Oropharyngeal dysphagia Cont with speech therapy Will refer to ENT * Cindy Clolado NP - 10/22/2023 11:17 AM EDTAssociated Problem(s): [...] 11:16 AM EDTAssociated Problem(s): Cerebrovascular accident (CVA) ([facility]) Would like a more local neurologist * [...] Chronic back pain Depression (CMS/HCC) HTN (hypertension) (CMS/[facility]) Obesity Past Surgical History: Procedure Laterality Date [...] List Items Addressed This Visit Mixed hyperlipidemia ([facility]) Relevant Orders Comprehensive metabolic panel Lipid panel Coronary atherosclerosis ([facility]) Crestor, toprol and ASA Relevant Medications aspirin (Aspirin Adult Low Strength) 81 MG chewable tablet Other Relevant Orders CBC and differential Lipid panel Cerebrovascular accident (CVA) ([facility]) Would like a more local neurologist Relevant Medications aspirin (Aspirin Adult Low Strength) 81 MG chewable tablet Other Relevant Orders CBC and differential Lipid panel Ambulatory referral to Neurology Dysarthria Primary hypertension ([facility]) stable Relevant Medications aspirin (Aspirin Adult Low Strength) 81 MG chewable tablet Other Relevant Orders Comprehensive metabolic panel Urinalysis with reflex microscopic (clean catch) Albumin, urine, random Migraine with aura and without status migrainosus, not intractable ([facility]/HCC) Relevant Orders Ambulatory referral to Neurology Dizziness and giddiness Refer to neuro Relevant Orders Ambulatory referral to Neurology Carotid artery stenosis Cont statin, and ASA Impaired mobility and activities of daily living Relevant Orders Ambulatory referral to Neurology Oropharyngeal dysphagia - Primary Cont with speech therapy Will refer to ENT Relevant Orders Ambulatory referral to ENT documented in this encounterCameron Regional Medical [id number] NoteUT Cardiology - [facility] Subjective Ozzie Gifford is a [...] Recurrent major depressive disorder, in full remission ([facility]/HCC) Encounter for prophylactic measures, unspecified URTI (acute [...] visit of 03/05/2022 with nurse practitioner Diana Dozier, she was complaining of symptoms of chest discomfort that were suggestive of possible angina. Imdur was added. In the past year she was admitted to the [facility] in October 2022 and February 2023 due to TIA symptoms. She and her son tell me that she underwent redo right carotid surgery this year at [facility]. Today she reports that she has been [...] no abdominal tenderness. Musculoskeleta (more content not included)...[facility] 08-21-2023 Hospital Discharge instructions Patient Education [...] medicine. Follow these instructions at home: Take zsah-ixe-ophhziv and prescription medicines as told by your [...] provider. Document Revised: 03/14/2020 Document Reviewed: 11/17/2019 [employer] Patient Education 2022 NextPage. Follow Up Care 08/20/2023 09:52:06 With:CORRIE EDEN, BERNICE Carias, URL Address: [address] [place] [address] Business (1) When: only if needed [facility] [place] 07-10-2024 NotePatient Education Caregiving Antibiotic Medicine, [...] Follow these instructions at home: ? Take arqk-hjr-atixjoy and prescription medicines as told by your health care provider. ? Return to your normal activities as told by your health care provider. Ask your health care provider what activities are safe for you. ? Keep all follow-up visits as told by your health care provider. This is important. Contact a health care provider if: ? Your s (more content not included)...[facility]2024 Hospital Discharge instructions Patient Education 07/15/2023 [...] Treatment for this condition includes: Antibiotic medicine. Nhij-meq-ctihccl medicines to treat discomfort. Drinking enough water [...] Follow these instructions at home: Medicines Take odqg-vmq-crzvkks and prescription medicines only as told by [...] provider. Document Revised: 09/09/2020 Document Reviewed: 09/09/2020 [employer] Patient Education 2022 NextPage. 07/15/2023 13:39:50 Urinary Incontinence Urinary Incontinence Urinary [...] (electrical nerve stimulation). ?For women, using a caregivers non medical to prevent urine leaks. This is a [...] right after experiencing incontinence. General instructions Take pznr-izg-glsmxqx and prescription medicines only as told by [...] important. Where to find more information National [place] of Diabetes and Digestive and Kidney Diseases: www.niddk.nih.gov [place] [employer]: www.urologyhealth.org Contact a health care [...] provider. Document Revised: 09/02/2020 Document Reviewed: 09/02/2020 [employer] Patient Education 2022 NextPage. Follow Up Care 07/15/2023 10:29:19 With:Ingrid LINDSEY, MITRA, Carmen X, FAM, URL Address: When: Unknown Comments:1 yr w/ PVR [facility] 2024 Evaluation + Plan note Diagnostic Tests Pending * Urine Culture 07/15/23 [facility]05-24-2024 Miscellaneous Notes* Telephone Encounter - Adia Bowling CMA - 07/05/2023 2:43 PM EDT PT referral faxed to [facility] 07/02/23. Confirmation received. documented in this encounterLima [facility]05-24-[facility] Telephone encounter Note* Telephone Encounter - Adia Bowling CMA - 07/05/2023 2:43 PM EDT PT referral faxed to [facility] 07/02/23. Confirmation received. [facility]05-24-2024 Miscellaneous Notes* Telephone Encounter - Beti Danielle - 07/05/2023 10:56 AM EDT Please fax patients last office notes (07/02/2023) To: [facility] Fax #: [phone] Phone #: [phone], option 1 Who is calling: Bessy * Telephone Encounter - Tri Gregory - 07/05/2023 10:56 AM EDT Faxed included information to [phone] on 07/05/23 at 15:30 - 07/02/[address] Arita documented in this encounterPrem[facility]Less [id number] Telephone encounter Note* Telephone Encounter - Beti Danielle - 07/05/2023 10:56 AM EDT Please fax patients last office notes (07/02/2023) To: [facility] Fax #: [phone] Phone #: [phone], option 1 Who is calling: Bessy [facility]Less [id number] Telephone encounter Note* Telephone Encounter - Tri Gregory - 07/05/2023 10:56 AM EDT Faxed included information to [phone] on 07/05/23 at 15:30 - 07/02/[address] Arita [facility]Less [id number] History of Present illness Narrative* Martin Arita MD - 07/02/2023 9:00 AM EDT Images from the original note were not included. [address] [address] Patient: Ozzie Gifford Date of : 1950 Encounter Date: 07/02/2023 Patient Care Team: Gerry Godwin MD as PCP - General (Family Medicine) History of Present Illness: Ms. Ozzie Gifford is a 73 y.o. year old female who is seen today at the neurology [facility]cl[facility] at [facility] for a new patient visit. The patient [...] to display PTSD: No data to display Mcgregor: No data to display IMAN-10: No data to display Past Medical, Family, Surgical, and Social History Update: The following portions of the patient's history were reviewed and updated as appropriate: allergies, current medications, past family history, past medical history, past social history, past surgicalhistory and problem list. Past Medical History: Diagnosis Date Breast disorder Headache HTN (hypertension) Stroke ([facility]) Family History Problem Relation Age of Onset Brain Tumor Mother Cancer Father Heart attack Brother Past Surgical History: Procedure Laterality Date APPENDECTOMY BARIATRIC SURGERY BREAST MASS EXCISION Patient had milk duct removal and some breast tissue removal CHOLECYSTECTOMY COLONOSCOPY Diagnostic cerebral angiogram N/A 04/05/2018 Performed by Soren Hollingsworth MD at [facility] HYSTERECTOMY REPLACEMENT TOTAL KNEE Stroke Thrombectomy, 04/05/2018 N/A 04/05/2018 Performed by Soren Hollingsworth MD at [facility] TONSILLECTOMY Current Outpatient Medications [...] Right achilles 0 Left achilles 0 MDS-UPDRS: @FLOW([id number],2102 [id number],2102 70946,[id number],[id number],[id number],2102 39672,[id number],2102 06080,[id number],[id number],[id number],2102 06369,[id number],2102 74154,[id number],[id number],[id number],[id number],2102 04156,[id number])@ TETRAS: @FLOW([id number],95456,45830,58142,27021,88837,18251,75023,68948,67376,97313,15 710,14430,37331,1572 4,56731,50220,36454,72375,54357,33021,81465,64686,29037,03333,38417,49680,27908, 38205,56147,74073,15 797,45881,02271,24332,98506,17334,54965,65844,15849,82032,41772,88372,67469,1581 5,82470,67069)@ Assessment and Plan: Ozzie Gifford is a [...] List None Follow-up: 6 months Swapnil Morales [address] I, MARTIN ARITA MD, was physically present with the participating medical student. I personally verified the medical student's documentation in the medical record and performed a physical exam andmedical decision making for the patient. I made appropriate changes or clarifications to the note. MARTIN ARITA MD This note was created with the assistance of a speech recognition program. While intending to generate a timely document that accurately reflects the content of the visit, no guarantee can be provided that every grammatical or spelling mistake has been or will be identified or corrected. Thank you for your understanding. documented in this encounterLima City Hospital04-24-2024 Miscellaneous Notes* Telephone Encounter - Tri Colt - 06/05/2023 2:58 PM EDT RN from Dr Day's office called to state Dr Day spoke with Dr Airta, stating patient should be seen in clinic sooner due to worsening symptoms. Patient and clinical staff at Dr Day's office were informed clinical staff from Dr Arita's office would contact patient to schedule sooner appointment but patient has yet to hear from our office. Please advise. * Telephone Encounter - Martin Arita MD - 06/05/2023 2:58 PM EDT We can try to add on June 11, at 12:00 p.m.. * Telephone Encounter - Britney Banks CMA - 06/05/2023 2:58 PM EDT Called pt to schedule a sooner appt, pt did not answer. Clinic Physician Director left a brief message stating for a call back. documented in this encounterLima City Hospital04-24-2024 Telephone encounter Note* Telephone Encounter - Tri Gregory - 06/05/2023 2:58 PM EDT RN from Dr Day's office called to state Dr Day spoke with Dr Arita, stating patient should be seen in clinic sooner due to worsening symptoms. Patient and clinical staff at Dr Day's office were informed clinical staff from Dr Arita's office would contact patient to schedule sooner appointment but patient has yet to hear from our office. Please advise. [facility]04-24-2024 Telephone encounter Note* Telephone Encounter - Martin Arita MD - 06/05/2023 2:58 PM EDT We can try to add on June 11, at 12:00 p.m.. [facility] [employer] Work Phone: [phone] 837-556204-24-2024 Telephone encounter Note* Telephone Encounter - Britney Banks CMA - 06/05/2023 2:58 PM EDT Called pt to schedule a sooner appt, pt did not answer. Clinic Physician Director left a brief message stating for a call back. [facility]Less [id number] Miscellaneous Notes* Telephone Encounter - Re Becerra - 04/10/2023 11:48 AM EST Received a call from patient's PCP office regarding appointment that's scheduled on 07/02/23 at 9:00a with Dr. Arita. Their office stated patient was suppose to be scheduled within 3 weeks from seeing last provider Dr. Haddad, Clinic Physician Director did review office note and nothing was stated that patient neededa [address] Arita. Patient was scheduled at next available time for provider. Nofurther questions at this time. documented in this encounterLima City Hospital02-28-2024 Telephone encounter Note* Telephone Encounter - Re Becerra - 04/10/2023 11:48 AM EST Received a call from patient's PCP office regarding appointment that's scheduled on 07/02/23 at 9:00a with Dr. Arita. Their office stated patient was suppose to be scheduled within 3 weeks from seeing last provider Dr. Haddad, Clinic Physician Director did review office note and nothing was stated that patient neededa [address] Arita. Patient was scheduled at next available time for provider. Nofurther questions at this time. [facility]02-15-2024 Miscellaneous Notes* Telephone Encounter - Марина Whiting - 03/28/2023 2:16 PM EST [facility] New patient referral received. Dx:Dizzy [[id number]]/ Referred [...] the following appointment: 07/02/2023 09:00 - MARTIN ARITA MD New patient Dizzy [[id number]] Referring provider: Rabia Dubose PA-C i Referred to Dr. Arita *Insurance verified: [employer] MEDICARE ADVANTAGE* NOT A WORKMANS COMP CASE New patient paperwork mailed 03/29/2023 - MMV documented in this encounterPremier [facility] [id number] Telephone encounter Note* Telephone Encounter - Марина Whiting - 03/28/2023 2:16 PM EST First Attempt Made from [facility] New patient referral received. Dx:Dizzy [[id number]]/ Referred by:Rabia Dubose PA-C Referred to: Providers patient can see in clinic: Please contact patient to schedule from referral, Thanks! PLEASE REVIEW PLAN OVER THE PHONE AND ADVISE PATIENT TO BRING UPDATED INSURANCE INFORMATION TO THEIR NEW PATIENT APPOINTMENT [facility]Less [id number] Telephone encounter Note* Telephone Encounter - Viktoriya Myles - 03/28/2023 2:16 PM EST Patient is scheduled for the following appointment: 07/02/2023 09:00 - MARTIN ARITA MD New patient Dizzy [[id number]] Referring provider: Rabia Dubose PA-C i Referred to Dr. Arita *Insurance verified: E-[employer] MEDICARE/[employer] MEDICARE ADVANTAGE* NOT A WORKMANS COMP CASE New patient paperwork mailed 03/29/2023 - MMV [employer] [id number] History of Present illness Narrative* Duncan Haddad MD - 03/20/2023 1:00 PM EST Reason for visit: dizziness HPI: Ozzie Gifford is a 72 y.o. 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 She was seen at [facility] ER for of speech disturbance and [...] Date Breast disorder Headache HTN (hypertension) Stroke ([facility]) Past Surgical History Past Surgical History: Procedure Laterality Date APPENDECTOMY BARIATRIC SURGERY BREAST MASS EXCISION Patient had milk duct removal and some breast tissue removal CHOLECYSTECTOMY COLONOSCOPY Diagnostic cerebral angiogram N/A 04/05/2018 Performed by Soren Hollingsworth MD at [facility] HYSTERECTOMY REPLACEMENT TOTAL KNEE Stroke Thrombectomy, 04/05/2018 N/A 04/05/2018 Performed by Soren Hollingsworth MD at [facility] TONSILLECTOMY Family History [...] referral provided for patient to see Dr. Arita R ICA stenosis (hx of prior R CEA) Unlikely the cause of dizziness. Will re-assess if repeat DSA and possible stenting are indicated following her appointment with Dr. Arita. Will place on two month recall list [...] in the note above. documented in this encounterLima City Hospital02-07-2024 Instructions* Patient Instructions* Rabia Dubose PA-C - 03/20/2023 1:00 PM EST Continue aspirin and statin Follow up with dizziness specialist We will discuss with you following appointment with Dr. Arita [facility] Discharge instructions Patient Education 03/07/2023 14:30:33 [...] (electrical nerve stimulation). ?For women, using a caregivers non medical to prevent urine leaks. This is a [...] right after experiencing incontinence. General instructions Take zihb-rkn-zfbqvzw and prescription medicines only as told by [...] important. Where to find more information National [place] of Diabetes and Digestive and Kidney Diseases: www.niddk.nih.gov [place] [employer]: www.urologyhealth.org Contact a health care [...] provider. Document Revised: 09/02/2020 Document Reviewed: 09/02/2020 [employer] Patient Education 2022 NextPage. Follow Up Care 02/21/2023 11:58:10 With:MITRA Quintero APRN, Carmen Rm, JAYESH, URL Address: When:Within 8 Week(s) Comments:w/ siri [facility] 01-22-2024 Miscellaneous Notes* Telephone Encounter - Joie Leyva RN - 03/04/2023 10:13 AM EST ----- Message from Sara Ozuna PA-C sent at 03/02/2023 3:07 PM EST ----- Regarding: [facility] follow up Patient has appt with Dr. Elmore on 03/12, she was just seen at [facility] via telestroke on 03/02. Dr. Haddad would like her put in his neurointervention clinic so please move the appointment. [place] abnormal vessel imaging in the right brachiocephalic and left ICA, MRI was negative for acute stroke. Please get imaging and reports from [place] prior to her appointment. * Telephone Encounter - Ginna Pak CMA - 03/04/2023 10:13 AM EST Faxed imaging request to [facility]. Currently waiting for response. * Telephone Encounter - Selin Peterson - 03/04/2023 10:13 AM EST Called patient and left VM * Telephone Encounter - Angie Sosa - 03/04/2023 10:13 AM EST Patient called and confirmed appointment. Patient will be here on 03/12/2023 at 9:30am * Telephone Encounter - Ginna Pak CMA - 03/04/2023 10:13 AM EST Radiology report was received and uploaded to Media. Confirmed on Epic that images are also in. Please advise. [...] she must see one in person . Clinic Physician Director explained what video visits are, and patient states she is aware of what it is but she does notwant it. Pt was also upset that the earliest available for Dr. Haddad is 03/20/23 at 3:00 PM because she willdriving back in the dark. Pt does not want anything later than 1:30 PM. Tried to reach out to [facility] proposal lead writer could squeeze her in, but could not receive an answer on time. If it is not possible, proposal lead writer will call to reschedule. Please advise. * Telephone Encounter - Joie Leyva RN - 03/04/2023 10:13 AM EST Okay as scheduled [facility] Telephone encounter Note* Telephone Encounter - Joie Leyva RN - 03/04/2023 10:13 AM EST ----- Message from Sara Ozuna PA-C sent at 03/02/2023 3:07 PM EST ----- Regarding: [facility] follow up Patient has appt with Dr. Elmore on 03/12, she was just seen at [facility] via telestroke on 03/02. Dr. Haddad would like her put in his neurointervention clinic so please move the appointment. [place] abnormal vessel imaging in the right brachiocephalic and left ICA, MRI was negative for acute stroke. Please get imaging and reports from [place] prior to her appointment. [facility] Telephone encounter Note* Telephone Encounter - Ginna Pak CMA - 03/04/2023 10:13 AM EST Faxed imaging request to [facility]. Currently waiting for response. [facility] [id number] Telephone encounter Note* Telephone Encounter - Selin Peterson - 03/04/2023 10:13 AM EST Called patient and left VM [facility] 4Less [id number] Telephone encounter Note* Telephone Encounter - Angie Sosa - 03/04/2023 10:13 AM EST Patient called and confirmed appointment. Patient will be here on 03/12/2023 at 9:30am [facility] 4Less [id number] Telephone encounter Note* Telephone Encounter - Ginna Pak CMA - 03/04/2023 10:13 AM EST Radiology report was received and uploaded to [employer]. Confirmed on [employer] that images are also in. Please advise. [facility] 4Less [id number] Telephone encounter Note* Telephone Encounter - Ginna Pak CMA - 03/04/2023 10:13 AM EST Called pt to reschedule her appointment with Dr. Ramírez Haddad. She expressed frustration for trying reschedule last minute when her took off work for tomorrow's appointment. Suggested video visit for next week, but she insists on seeing regular doctor and she must see one in person . Clinic Physician Director explained what video visits are, and patient states she is aware of what it is but she does notwant it. Pt was also upset that the earliest available for Dr. Haddad is 03/20/23 at 3:00 PM because she willdriving back in the dark. Pt does not want anything later than 1:30 PM. Tried to reach out to [facility] proposal lead writer could squeeze her in, but could not receive an answer on time. If it is not possible, proposal lead writer will call to reschedule. Please advise. [facility]01-22-2024 Telephone encounter Note* Telephone Encounter - Joie Leyva RN - 03/04/2023 10:13 AM EST Okay as scheduled [facility]12-14-2023 Miscellaneous Notes* Telephone Encounter - Charlette Burr - 01/24/2023 12:46 PM EST Patient called to see if we received paperwork that was sent from her PCP in July. Caller states she has had a new stroke and needs to be seen. Patient states she has been having headaches and dizziness. Please advise [phone] * Telephone Encounter - Joie Leyva RN - 01/24/2023 12:46 PM EST Patient last seen in 2018. No paperwork has been completed or received. Please see where patient had recent stroke and gather records. * Telephone Encounter - Ginna Pak CMA - 01/24/2023 12:46 PM EST Called pt. She state Dr. Godwin sent the paperwork back in November 2022. MRI was done at [place] very recently. Clinic Physician Director will be requesting image and any office visit notes related to neurology. Pt seems to be very frustrated by the lack of communication. Clinic Physician Director informed that we will reach out to [facility] to gather as much information. Clinic Physician Director must note that the quality of the call was very poor and it was hard to communicate with thepatient. Asked if she could move to somewhere with a better customer service receptionist, but even then the quality did not improve. At the end of the call, she showed more frustration which proposal lead writer could not understandand she hung up. * Telephone Encounter - Ginna Pak CMA - 01/24/2023 12:46 PM EST Called [facility] radiology to confirm if she has gotten any MRI in November. It was ordered by one of the hospitalists. A systems technician could not confirm who ordered the [...] 03/12/23 at 10:00 AM documented in this encounterL[facility]12-14-2023 Telephone encounter Note* Telephone Encounter - Charlette Burr - 01/24/2023 12:46 PM EST Patient called to see if we received paperwork that was sent from her PCP in July. Caller states she has had a new stroke and needs to be seen. Patient states she has been having headaches and dizziness. Please advise [phone] [facility] [id number] Telephone encounter Note* Telephone Encounter - Joie Leyva RN - 01/24/2023 12:46 PM EST Patient last seen in 2018. No paperwork has been completed or received. Please see where patient had recent stroke and gather records. [facility] [id number] Telephone encounter Note* Telephone Encounter - Ginna Pak CMA - 01/24/2023 12:46 PM EST Called pt. She state Dr. Godwin sent the paperwork back in November 2022. MRI was done at [place] very recently. Clinic Physician Director will be requesting image and any office visit notes related to neurology. Pt seems to be very frustrated by the lack of communication. Clinic Physician Director informed that we will reach out to [place] to gather as much information. Clinic Physician Director must note that the quality of the call was very poor and it was hard to communicate with thepatient. Asked if she could move to somewhere with a better customer service receptionist, but even then the quality did not improve. At the end of the call, she showed more frustration which proposal lead writer could not understandand she hung up. [facility] Telephone encounter Note* Telephone Encounter - Ginna Pak CMA - 01/24/2023 12:46 PM EST Called [facility] radiology to confirm if she has gotten any MRI in November. It was ordered by one of the hospitalists. A systems technician could not confirm who ordered the imaging, but confirmed that she pushed over the imaging through PACs and reports via fax. Currently waiting for response. [facility] 4Less [id number] Telephone encounter Note* Telephone Encounter - Ginna Pak CMA - 01/24/2023 12:46 PM EST Faxed request for hospitalization records on nov 2022. Currently waiting for response. [facility] 4Less [id number] Telephone encounter Note* Telephone Encounter - Ginna Pak CMA - 01/24/2023 12:46 PM EST Called and scheduled an appointment on 03/12/23 at 10:00 AM [facility]09-05-2023 Evaluation note* Encounter Date Diagnosis Assessment Notes Treatment Notes Treatment Clinical Notes Oct, Dysuria (ICD-10 - R30.0) UA without leukocytes, nitrate, blood. Patient finished antibiotic less than 1 week ago. Discussed with patient no current signs of bacterial urinary tract infection. Patient does have chronic urinary symptoms. Push fluids. Follow-up with PCP in the next week if symptoms or not resolving. Discussedmay need to see urology if continues with chronic urinary symptoms. Patient verbalized understanding. [employer] 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 [employer] Other 10-18-2022 NoteED Procedure Charges Entered On: 11/28/2021 17:45 EDT Performed On: 11/28/2021 17:44 EDT by Heena Crawford [employer] ([id number]) Sim Rep Sca to 2.5 [id number] : 1 Heena Crawford - 11/28/2021 17:[facility]ED Nursing Discharge Summary Entered On: 11/24/2021 17:29 EDT Performed On: 11/24/2021 17:29 EDT by Fabio BATISTA, Jennifer DAVENPORT Information [id number] ED IV's : No IV ED IV Site Assessment : No IV ED Vitals Completed : Yes ED Final Assessment Completed : Yes ED Progress Note Completed : Yes Complete all PRN/Pain response forms? : Yes ED Disassociate Patient from Monitor : N/A Updated Depart Time : Yes ED Belongings sent w patient [id number] : Not applicable Jennifer Mccarthy RN - [...] Jennifer Mccarthy RN - 11/24/2021 17:29 EDT [facility]10-14-2022 NotePROCEDURE: CT CHEST WITHOUT IV CONTRAST HISTORY: WHAT SYMPTOMS ARE YOU EXPERIENCING? - PT FELL AND HIT HEAD, PAIN, HX OF STROKE 2019, SOB, CHEST PAIN PAIN COMPARISON: None TECHNIQUE: Multiple contiguous axial CT images of the chest were obtained without the administration of intravenous contrast. Sagittal and coronal reconstructions were performed. All CT scans at [facility] use dose modulation, iterative reconstruction, and/or [...] in diameter. See below for follow-up recommendations. [facility] MANDATED QUALITY DATA - FOLLOW-UP IMAGING FOR [...] factors. * Reference: Radiology. 2017 Aug; 241(1):228-243, Fleischner Guidelines for Management of Incidental Pulmonary Nodules on CT Electronically signed by: Ismael Aguilar MD 11/24/2021 1:28 PM CDT 6709TEverything ClubB Technologist: WENDY CHAVEZ Dictated By: ISMAEL AGUILAR MD Signed By: ISMAEL AGUILAR MD Signed Out: 11/24/21 14:28:17[facility]10-12-2022 Consult note Author Shavon Leos [facility] November 22, 2021 11:54amNote Date/TimeOct2021 11:45[place] [address] Cardiology Consult Note Signed Patient: Ozzie Gifford MR#: [id number] : 1950 Acct:[id number] Age/Sex: 71 / F Adm Date: 2 Loc: Room: [address] [place] [address] Type: ADM IN Attending Dr: Anna Valladares [...] status and clinical condition has improved. At thetime my evaluation the patient appears appropriate. She reported to me that she has been under a lot of stress. Apparently his daughter had been diagnosed with terminal illness. Family brought her because of increasing confusion and weakness. She has been on long-term metoprolol therapy. The patient report in the past she underwent work-up by cardiology in [place]. She did undergo an implantableloop recorder because of unexplained neurologic symptoms. This [...] of appendectomy [facility] History of knee replacement right knee replacement [...] x10E3/uL Lymph # (Auto) 1.2 (1.00-4.8) x10E3/uL Thayer # (Auto) 0.4 (0.0-0.8) x10E3/uL Eos # [...] ,000 ml @ 100 mls/hr IV .Q10H [facility] Rx#:[id number] Oral 250 / 500 450 / 450 [...] have an implantable loop recorder had seen cardiologyin [place] Code(s): R00.1 - Bradycardia, unspecified (2) AMS [...] continue his long-term follow-up with his primary water mechanic in [place] Documented By: Shavon Leos MD 11/22/21 1143 Signed By: <Electronically signed by MD Shavon Leos> 11/22/21 1154 [facility] Work Phone: 1(827) 921-585410-12-2022 Progress note Author Anna Valladares [facility] November 22, 2021 8:17amNote Date/TimeOctober 2021 12:10[place] [address] Hospitalist Progress Note Signed Patient: Ozzie Gifford MR#: [id number] : 1950 Acct:[id number] Age/Sex: 71 / F Adm Date: 2 Loc: Room: [address] [place] [address] Type: ADM IN Attending Dr: Anna Valladares MD Copies to: ~ Date of Service: 11/21/2021 Subjective Subjective Narrative: Patient seen and examined. cartside, currently still roomed in down in ER awaiting nursing floor availability. She offers no complaint. Keeps talkingof her daughter in [place] dying from cancer currently. thinks this is [...] by Anna Valladares MD> 11/22/21 0817 [facility] Work Phone: 1(174) 292-451010-11-2022 History and physical note Author Ashleigh Rashid [facility] November 21, 2021 6:39amNote Date/TimeOct2021 6:39am[place] [address] Hospitalist H&P Signed Patient: Ozzie Gifford MR#: [id number] : 1950 Acct:[id number] Age/Sex: 71 / F Adm Date: 2 Loc: ER Room: Type: [facility] ER Attending Dr: Copies to: MD [...] of appendectomy [facility] History of knee replacement right knee replacement [...] % (Auto) 20.4 % (.) 11/21/21 04:12 Thayer % (Auto) 9.9 % (.) 11/21/21 04:12 Eos % (Auto) 3.7 % (.) 11/21/21 04:12 Baso % (Auto) 0.8 % (.) 11/21/21 04:12 Neut # (Auto) 3.5 x10E3/uL (1.8-7.7) 11/21/21 04:12 Lymph # (Auto) 1.1 x10E3/uL (1.00-4.8) 11/21/21 04:12 Thayer # (Auto) 0.5 x10E3/uL (0.0-0.8) 11/21/21 04:12 [...] pH 5.5 (5.0-9.0) 11/21/21 04:20 Ur Specific [place] 1.010 (1.001-1.030) 11/21/21 04:20 Urine Protein Negative [...] by Ashleigh Cruz MD> 11/21/21 0639 [facility] Work Phone: 1(649) 950-722910-11-2022 History and physical note Author Ashleigh Rashid [facility] November 21, 2021 6:39amNote Date/TimeOct2021 6:39[place] [address] Hospitalist H&P Signed Patient: Ozzie Gifford MR#: [id number] : 1950 Acct:[id number] Age/Sex: 71 / F Adm Date: 2 Loc: ER Room: Type: [facility] ER Attending Dr: Copies to: MD [...] injury, UA was concerning for UTI, on enc the patient was in bed she is [...] of appendectomy History of [facility] History of knee replacement right knee replacement [...] % (Auto) 20.4 % (.) 11/21/21 04:12 Thayer % (Auto) 9.9 % (.) 11/21/21 04:12 Eos % (Auto) 3.7 % (.) 11/21/21 04:12 Baso % (Auto) 0.8 % (.) 11/21/21 04:12 Neut # (Auto) 3.5 x10E3/uL (1.8-7.7) 11/21/21 04:12 Lymph # (Auto) 1.1 x10E3/uL (1.00-4.8) 11/21/21 04:12 Thayer # (Auto) 0.5 x10E3/uL (0.0-0.8) 11/21/21 04:12 [...] pH 5.5 (5.0-9.0) 11/21/21 04:20 Ur Specific [place] 1.010 (1.001-1.030) 11/21/21 04:20 Urine Protein Negative [...] Ashleigh Cruz MD> 11/21/[address] [facility] Work Phone: 1(804) 976-531908-17-2022 Evaluation note* Encounter Date Diagnosis Assessment Notes Treatment Notes Treatment Clinical Notes Sep, Bilateral carotid artery stenosi s (ICD-10 - I65.23) I did review the patient's carotid duplex results with her today. I recommend continued nonoperative conservative management. There is no indication for any surgical intervention at this time. We will see her back in 6 months with repeat studies. All of her questions were addressed. [employer] Other 08-12-2022 Evaluation note* Encounter Date Diagnosis Assessment Notes Treatment Notes Treatment Clinical Notes Sep, Nausea and vomiting, unspecified vomiting type (ICD-10 - R11.2) rx sent, take as directed. stay hydrated. Advance diet as tolerated. Monitor for s/s of dehydration, immediate eval via ER if warning s/s of dehydration and/or pt is unable to keep any foods/fluids down. Sep,OVID-19 (ICD-10 - U07.1)Provided reassurance that patient's clinical presentation today is low suspicion for any complications of COVID. Explained to patient that COVID is a viral infection and does self resolve, generally in 10 to 14 days, even without use of any medications. Advised that patient may continue to use tjyd-fly-dihnpwx medications as needed for supportive treatment. Discussed that it could be possible that her nausea/vomiting/diarrhea could still be some residual side effects from the Paxlovid medication. At this time she should not take anymore that. She may follow-up with family doctor as scheduled on Saturday if she has more concerns. [employer] Other 08-10-2022 Evaluation note* Encounter Date Diagnosis Assessment Notes Treatment Notes Treatment Clinical Notes Sep, Other fractures of l ower end of left radius, subsequent encounter for closed fracture with routine healing (ICD-10 - S52.592D) Sep,losed nondisplaced fracture of proximal phalanx of right middle finger, initial encounter (ICD-10 - S62.642A) Sep,rthritis of right hand (ICD-10 - M19.041) Sep,2Right hand pain (ICD-10 - M79.641) Sep,ther specified postprocedural states (ICD-10 - Z98.890)Patient is progressing well from surgery. We discussed the importance of continuing to work on range of motion and strength exercise. Patient instructed to follow up as needed. She voices understanding and states no new questions or concerns at this time. [employer] Other 06-22-2022 Evaluation note* Encounter Date Diagnosis Assessment Notes Treatment Notes Treatment Clinical Notes Jul, Other fractures of l ower end of left radius, subsequent encounter for closed fracture with routine healing (ICD-10 - S52.592D) Jul, losed nondisplaced fracture of proximal phalanx of right middle finger, initial encounter (ICD-10 - S62.642A)Continue with gentle ROM exercises Jul,rthritis of right hand (ICD-10 - M19.041) Jul, 2Right hand pain (ICD-10 - M79.641) Jul,ther specified postprocedural states (ICD-10 - Z98.890) [employer] Other 06-01-2022 Evaluation note* Encounter Date Diagnosis Assessment Notes Treatment Notes Treatment Clinical Notes Jul, Other fractures of l ower end of left radius, subsequent encounter for closed fracture with routine healing (ICD-10 - S52.592D) Activity as tolerated Jul,losed nondisplaced fracture of proximal phalanx of right middle finger, initial encounter (ICD-10 - S62.642A)Patient placed in TKO splint to use with activities. Jul,rthritis of right hand (ICD-10 - M19.041)Patient instructed on the use of Voltaren Gel Jul,ight hand pain (ICD-10 - M79.641) Jul,ther specified postprocedural states (ICD-10 - Z98.890) [employer] Other 04-20-2022 Evaluation note* Encounter Date Diagnosis Assessment Notes Treatment Notes Treatment Clinical Notes May, Other specified postprocedural s tates (ICD-10 - Z98.890) May,ther fractures of lower end of left radius, subsequent encounter for closed fracture with routine healing (ICD-10 - S52.592D)Radiographs reviewed with patient. She is progressing well from surgery. She continues to experience numbness, so we will perform carpal tunnel injection. Patient was prepped and cortisone injected into the left carpal tunnel under sterile conditions. Patient tolerated well with no adverse reactions. Continue motion and strengthening exercises. Progress activity as tolerated. Call with questions/concerns. [employer] Other 03-23-2022 Evaluation note* Encounter Date Diagnosis Assessment Notes Treatment Notes Treatment Clinical Notes Apr, Other specified postprocedural s tates (ICD-10 - Z98.890) Radiographs reviewed with patient. Patient is progressing well from surgery. Continue occupational therapy exercises. Call with questions/concerns. Apr,ther fractures of lower end of left radius, subsequent encounter for closed fracture with routine healing (ICD-10 - S52.592D) [employer] 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 We will continue to conservatively manage her and treat her nonoperatively for now..I did caution her that she may require balloonangioplasty in the future if this continues to progress or reaches 80% or she develops symptoms [employer] Other 10-21-2021 Evaluation note* Encounter Date Diagnosis Assessment Notes Treatment Notes Treatment Clinical Notes Nov, Asymptomatic stenosis of right c arotid artery (ICD-10 - I65.21) I reviewed the CT angiogram. This appears to be less than 80%. Therefore we will continue with nonoperative conservative management. We will see her back in 3 months with a repeat carotid duplex study. The patient understands agrees the plan of her questions were answered. For the left leg swellingI suggested ice and elevation with compression stockings. [employer] 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 She has greater than 70% stenoses of the right carotid artery. This was previously endarterectomized in the past. She is approaching 80%. Although I believe now she is asymptomatic I do recommend we obtain a CT angiogram to further delineate the amount of stenoses. She mayneed intervention. This was explained to the patient and she understands agrees the plan. I do not believe any of her current symptoms are related to this recurrent right carotid artery stenoses at this time. I would classify this is asymptomatic recurrent stenoses currently. [employer] Other Evaluation + Plan note No data available for this section [facility] Evaluation + Plan note Future Appointments Appointment Date:04/01/2024 08:40:00 AM Scheduled Provider:BERNICE CLEMENTE PA-C Location:Critical access hospital Appointment Type:URO Office Visit [facility] [place] evaluation + Plan note Future Appointments Appointment Date:04/01/2024 08:40:00 AM Scheduled Provider:BERNICE CLEMENTE PA-C Location:Critical access hospital Appointment Type:URO Office Visit Diagnostic Tests Pending * Urine Culture 02/20/24 [facility] evaluation + Plan note Future Appointments Appointment Date:04/22/2024 11:20:00 AM Scheduled Provider:BERNICE CLEMENTE PA-C Location[facility] Appointment Type:URO Office Visit Diagnostic Tests Pending * Urine Culture 04/01/24 [facility] evaluation + Plan note Future Appointments Appointment Date:04/22/2024 11:20:00 AM Scheduled Provider:BERNICE CLEMENTE PA-C Location:Critical access hospital Appointment Type:URO Office Visit [facility] Evaluation + Plan note Future Appointments Appointment Date:08/05/2024 03:00:00 PM Scheduled Provider:BERNICE CLEMENTE PA-C Location:Critical access hospital Appointment Type:URO Office Visit [facility] evaluation + Plan note Future Appointments Appointment Date:08/05/2024 03:00:00 PM Scheduled Provider:BERNICE CLEMENTE PA-C Location:Critical access hospital Appointment Type:URO Office Visit Diagnostic Tests Pending * Urine Culture 06/30/24 [facility] evaluation + Plan note Future Appointments Appointment Date:08/17/2024 09:00:00 AM Scheduled Provider: Location:[facility] Appointment Type:Urology CALL PAT FT Appointment Date:08/18/2024 09:00:00 AM Scheduled Provider: Location:[facility] Appointment Type:Urology FT [facility] evaluation + Plan note Future Appointments Appointment Date:09/02/2024 12:30:00 PM Scheduled Provider: Location:[facility] Appointment Type:Urology CALL PAT FT Appointment Date:09/03/2024 09:00:00 AM Scheduled Provider: [facility] Appointment Type:Urology FT [facility] evaluation + Plan note Future Appointments Appointment Date:09/18/2024 04:00:00 PM Scheduled Provider: Location:[facility] Appointment Type:Urology CALL PAT FT Appointment Date:09/22/2024 09:45:00 AM Scheduled Provider: Location:[facility] Appointment Type:Urology FT Appointment Date:10/08/2024 09:00:00 AM Scheduled Provider:MITRA Quintero APRN, [place] [facility] Location:Critical access hospital Appointment Type:URO Office Visit [facility] evaluation + Plan note Future Appointments Appointment Date:02/01/2025 08:00:00 AM Scheduled Provider:MITRA Quintero APRN, [place] [facility] Location:Critical access hospital Appointment Type:URO Office Visit [facility] evalupxgxi noteNo assessment information available [facility] Work Phone: evalusufey noteNo 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 / [employer] Other evaluation note* Diagnosis Onset Date Resolution Status JASEN (acute kidney injury) acuteAMS (altered mental status)acuteImpaired mobility and activities of daily livingacuteSymptomatic bradycardiaacute [facility] Work Phone: Evaluation note* Diagnosis Onset Date Resolution Status JASEN (acute kidney injury) acuteAMS (altered mental status)acuteImpaired mobility and activities of daily livingacuteSymptomatic bradycardiaacuteH/O traumatic brain injurychronicHLD (hyperlipidemia)chronicHTN, goal below 140/90chronic [facility] Work Phone: evaluation note* Diagnosis Anxiety and depression ([facility]/HCC)- Primary [facility]* Diagnosis Onset Date Resolution Status Carotid stenosis acuteCarotid stenosisacute [facility] Work Phone: Evaluation note* Diagnosis Onset Date Resolution Status Carotid stenosis acuteCarotid stenosisacuteUTI (urinary tract infection)noneactiveContact with or exposure to viral diseasenonOhio[facility] Work Phone: evaluation note* Diagnosis Onset Date Resolution Status UTI (urinary tract infection) noneactiveContact with or exposure to viral diseasenonctive [facility] Work Phone: evaluation note* Diagnosis Onset Date Resolution Status UTI (urinary tract infection) noneactiveContact with or exposure to viral diseasenoneaselect medical [facility] southInternal carotid artery stent presentacute [facility] Work Phone: evaluation note* Diagnosis Urinary tract infection symptoms- Primary documented in this encounter [facility] [...] oropharyngeal phase Dizziness and giddiness Primary hypertension ([facility]/HCC)- Primary Unspecified essential hypertension Migraine with aura and without status migrainosus, not intractable ([facility]) Oropharyngeal dysphagia Dysphagia, oropharyngeal phase Oropharyngeal dysphagia- Primary Dysphagia, oropharyngeal phase Dysarthria Cerebrovascular accident (CVA), unspecified mechanism ([facility]/HCC) Atherosclerosis of coronary artery of [place] heart, unspecified vessel or lesion type, unspecified whether angina present ([facility]) Primary hypertension (CMS/HCC) Unspecified essential hypertension Stenosis [...] Dysphagia, oropharyngeal phase documented in this encounter [facility]Evaluation [facility]* Diagnosis URTI (acute upper respiratory [...] mechanism (CMS/HCC) Atherosclerosis of coronary artery of [place] heart, unspecified vessel or lesion type, unspecified [...] and depression (CMS/HCC) documented in this encounter [facility] HealthcareEvaluation note* Diagnosis URTI (acute upper respiratory [...] mechanism (CMS/HCC) Atherosclerosis of coronary artery of [place] heart, unspecified vessel or lesion type, unspecified [...] of ischemic stroke documented in this encounter [facility] HealthcareEvaluation note* Diagnosis Acute cystitis without hematuria- Primary documented in this encounter [facility] HealthcareEvaluation note* Diagnosis Urinary tract infection symptoms- Primary documented in this encounter [facility] HealthcareEvaluation note* Diagnosis URTI (acute upper respiratory [...] mechanism (CMS/HCC) Atherosclerosis of coronary artery of [place] heart, unspecified vessel or lesion type, unspecified [...] disease, unspecified Atherosclerosis of coronary artery of [place] heart, unspecified vessel or lesion type, unspecified [...] anxiety disorder UTI symptoms Anxiety and depression (CMS/[facility]) Overflow incontinence of urine Overflow incontinence Chronic UTI Urinary tract infection, site not specified documented in this encounter [facility] HealthcareEvaluation note* Diagnosis URTI (acute upper respiratory [...] mechanism (CMS/HCC) Atherosclerosis of coronary artery of [place] heart, unspecified vessel or lesion type, unspecified whether angina present (CMS/HCC) Primary hypertension ([facility]/HCC) Unspecified essential hypertension Stenosis of right carotid [...] of initiating or maintaining sleep Primary hypertension ([facility]/HCC)- Primary Unspecified essential hypertension Heart failure, unspecified ([facility]/HCC) Heart failure, unspecified Peripheral vascular disease, unspecified ([facility]/HCC) Peripheral vascular disease, unspecified Atherosclerosis of coronary artery of [place] heart, unspecified vessel or lesion type, unspecified whether angina present ([facility]) Stenosis of right carotid artery Occlusion and stenosis of carotid artery without mention of cerebral infarction Recurrent major depressive disorder, in full remission ([facility]) Cerebrovascular accident (CVA), unspecified mechanism (CMS/HCC) Muscle spasm Spasm of muscle Iron deficiency Disorders of iron metabolism Psychophysiological insomnia Persistent disorder of initiating or maintaining sleep Migraine with aura and without status migrainosus, not intractable ([facility]/HCC) CRYSTAL (generalized anxiety disorder) ([facility]) Generalized anxiety disorder UTI symptoms Anxiety and depression ([facility]) Overflow incontinence of urine Overflow incontinence Chronic UTI Urinary tract infection, site not specified Chronic UTI- Primary Urinary tract infection, site not specified documented in this encounter [facility] HealthcareEvaluation note* Diagnosis Cerebrovascular accident (CVA), unspecified mechanism ([facility]/HCC)- Primary Oropharyngeal dysphagia Dysphagia, oropharyngeal phase Dysarthria documented in this encounter [facility] HealthcareEvaluation note* Diagnosis Oropharyngeal dysphagia- Primary Dysphagia, oropharyngeal phase Dysarthria Cerebrovascular accident (CVA), unspecified mechanism ([facility]/HCC) Atherosclerosis of coronary artery of [place] heart, unspecified vessel or lesion type, unspecified whether angina present ([facility]) Primary hypertension ([facility] Unspecified essential hypertension Stenosis of right carotid artery Occlusion and stenosis of carotid artery without mention of cerebral infarction Mixed hyperlipidemia ([facility]/HCC) Mixed hyperlipidemia Dizziness and giddiness Impaired mobility and activities of daily living Migraine with aura and without status migrainosus, not intractable ([facility]/HCC) Muscle spasm Spasm of muscle Anxiety and depression ([facility]) Iron deficiency Disorders of iron metabolism Psychophysiological insomnia Persistent disorder of initiating or maintaining sleep documented [facility]* [...] mechanism (CMS/HCC) Atherosclerosis of coronary artery of [place] heart, unspecified vessel or lesion type, unspecified whether angina present (CMS/HCC) Primary hypertension ([facility]/HCC) Unspecified essential hypertension Stenosis of right carotid artery Occlusion and stenosis of carotid artery without mention of cerebral infarction Mixed hyperlipidemia (CMS/HCC) Mixed hyperlipidemia Dizziness and giddiness Impaired mobility and activities of daily living Migraine with aura and without status migrainosus, not intractable (CMS/HCC) Muscle spasm Spasm of muscle Anxiety and depression ([facility]/HCC) Iron deficiency Disorders of iron metabolism Psychophysiological insomnia Persistent disorder of initiating or maintaining sleep Primary hypertension (CMS/HCC)- Primary Unspecified essential hypertension Heart failure, unspecified (CMS/HCC) Heart failure, unspecified Peripheral vascular disease, unspecified (CMS/HCC) Peripheral vascular disease, unspecified Atherosclerosis of coronary artery of [place] heart, unspecified vessel or lesion type, unspecified [...] not intractable (CMS/HCC) CRYSTAL (generalized anxiety disorder) ([facility]/HCC) Generalized anxiety disorder UTI symptoms Anxiety and depression (CMS/HCC) Overflow incontinence of urine Overflow incontinence Chronic UTI Urinary tract infection, site not specified Chronic UTI- Primary Urinary tract infection, site not specified Cerebrovascular accident (CVA), unspecified mechanism (CMS/HCC)- Primary Dysarthria White matter disease Stenosis of carotid artery, unspecified laterality Peripheral vascular disease, unspecified (CMS/HCC) Peripheral vascular disease, unspecified Overflow incontinence of urine Overflow incontinence Dizziness and giddiness documented [facility]* Diagnosis Functional gait disorder- Primary Dizziness Dizziness and giddiness [facility] Diagnosis Dizzy- Primary Dizziness and giddiness 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 ([facility]-HCC) Dizziness Dizziness and giddiness documented in this encounter [facility]* Diagnosis URTI (acute upper respiratory [...] oropharyngeal phase Dizziness and giddiness Primary hypertension ([facility]/HCC)- Primary Unspecified essential hypertension Migraine with aura and without status migrainosus, not intractable (CMS/HCC) Oropharyngeal dysphagia Dysphagia, oropharyngeal phase Oropharyngeal dysphagia- Primary Dysphagia, oropharyngeal phase Dysarthria Cerebrovascular accident (CVA), unspecified mechanism (CMS/HCC) Atherosclerosis of coronary artery of [place] heart, unspecified vessel or lesion type, unspecified [...] disease, unspecified Atherosclerosis of coronary artery of [place] heart, unspecified vessel or lesion type, unspecified [...] anxiety disorder UTI symptoms Anxiety and depression ([facility]) Overflow incontinence of urine Overflow incontinence Chronic UTI Urinary tract infection, site not specified Impaired mobility and activities of daily living History of cerebrovascular accident (CVA) with residual deficit Chronic UTI- Primary Urinary tract infection, site not specified Primary hypertension ([facility]/HCC)- Primary Unspecified essential hypertension Cerebrovascular accident (CVA), unspecified mechanism ([facility]) Dizziness and giddiness Overflow incontinence of urine Overflow incontinence CRYSTAL (generalized anxiety disorder) ([facility]) Generalized anxiety disorder Impaired mobility and activities of daily living documented in this encounter [facility] HealthcareEvaluation [facility]* Diagnosis URTI (acute upper respiratory [...] oropharyngeal phase Dizziness and giddiness Primary hypertension ([facility])- Primary Unspecified essential hypertension Migraine with aura and without status migrainosus, not intractable ([facility]) Oropharyngeal dysphagia Dysphagia, oropharyngeal phase Oropharyngeal dysphagia- Primary Dysphagia, oropharyngeal phase Dysarthria Cerebrovascular accident (CVA), unspecified mechanism (CMS/HCC) Atherosclerosis of coronary artery of [place] heart, unspecified vessel or lesion type, unspecified whether angina present ([facility]) Primary hypertension ([facility]) Unspecified essential hypertension Stenosis of right carotid artery Occlusion and stenosis of carotid artery without mention of cerebral infarction Mixed hyperlipidemia ([facility]) Mixed hyperlipidemia Dizziness and giddiness Impaired mobility and activities of daily living Migraine with aura and without status migrainosus, not intractable ([facility]/HCC) Muscle spasm Spasm of muscle Anxiety and depression ([facility]) Iron deficiency Disorders of iron metabolism Psychophysiological insomnia Persistent disorder of initiating or maintaining sleep Primary hypertension ([facility]/HCC)- Primary Unspecified essential hypertension Heart failure, unspecified (CMS/[facility]) Heart failure, unspecified Peripheral vascular disease, unspecified ([facility]) Peripheral vascular disease, unspecified Atherosclerosis of coronary artery of [place] heart, unspecified vessel or lesion type, unspecified whether angina present ([facility]) Stenosis of right carotid artery Occlusion and [...] mechanism (CMS/HCC) Atherosclerosis of coronary artery of [place] heart, unspecified vessel or lesion type, unspecified [...] Primary Unspecified essential hypertension Heart failure, unspecified ([facility]) Heart failure, unspecified Peripheral vascular disease, unspecified ([facility]) Peripheral vascular disease, unspecified Atherosclerosis of coronary artery of [place] heart, unspecified vessel or lesion type, unspecified whether angina present ([facility]) Stenosis of right carotid artery Occlusion and stenosis of carotid artery without mention of cerebral infarction Recurrent major depressive disorder, in full remission ([facility]) Cerebrovascular accident (CVA), unspecified mechanism ([facility]) Muscle spasm Spasm of muscle Iron deficiency Disorders of iron metabolism Psychophysiological insomnia Persistent disorder of initiating or maintaining sleep Migraine with aura and without status migrainosus, not intractable ([facility]) CRYSTAL (generalized anxiety disorder) ([facility]) Generalized anxiety disorder UTI symptoms Anxiety and depression ([facility]) Overflow incontinence of urine Overflow incontinence Chronic UTI Urinary tract infection, site not specified Impaired mobility and activities of daily living History of cerebrovascular accident (CVA) with residual deficit Chronic UTI- Primary Urinary tract infection, site not specified Primary hypertension ([facility])- Primary Unspecified essential hypertension Cerebrovascular accident (CVA), unspecified mechanism ([facility]) Dizziness and giddiness Overflow incontinence of urine Overflow incontinence CRYSTAL (generalized anxiety disorder) ([facility]) Generalized anxiety disorder Impaired mobility and activities of daily living Acute diffuse otitis externa of both ears- Primary [facility] encounter [facility] [...] oropharyngeal phase Dizziness and giddiness Primary hypertension ([facility]/HCC)- Primary Unspecified essential hypertension Migraine with aura and without status migrainosus, not intractable ([facility]) Oropharyngeal dysphagia Dysphagia, oropharyngeal phase Oropharyngeal dysphagia- Primary Dysphagia, oropharyngeal phase Dysarthria Cerebrovascular accident (CVA), unspecified mechanism ([facility]/HCC) Atherosclerosis of coronary artery of [place] heart, unspecified vessel or lesion type, unspecified whether angina present ([facility]) Primary hypertension ([facility]) Unspecified essential hypertension Stenosis of right carotid artery Occlusion and stenosis of carotid artery without mention of cerebral infarction Mixed hyperlipidemia ([facility]) Mixed hyperlipidemia Dizziness and giddiness Impaired mobility and activities of daily living Migraine with aura and without status migrainosus, not intractable ([facility]) Muscle spasm Spasm of muscle Anxiety and depression ([facility]) Iron deficiency Disorders of iron metabolism Psychophysiological insomnia Persistent disorder of initiating or maintaining sleep Primary hypertension ([facility])- Primary Unspecified essential hypertension Heart failure, unspecified ([facility]) Heart failure, unspecified Peripheral vascular disease, unspecified ([facility]) Peripheral vascular disease, unspecified Atherosclerosis of coronary artery of [place] heart, unspecified vessel or lesion type, unspecified whether angina present ([facility]) Stenosis of right carotid artery Occlusion and stenosis of carotid artery without mention of cerebral infarction Recurrent major depressive disorder, in full remission ([facility]) Cerebrovascular accident (CVA), unspecified mechanism ([facility]) Muscle spasm Spasm of muscle Iron deficiency Disorders of iron metabolism Psychophysiological insomnia Persistent disorder of initiating or maintaining sleep Migraine with aura and without status migrainosus, not intractable ([facility]) CRYSTAL (generalized anxiety disorder) ([facility]) Generalized anxiety disorder UTI symptoms Anxiety and depression ([facility]) Overflow incontinence of urine Overflow incontinence Chronic UTI Urinary tract infection, site not specified Impaired mobility and activities of daily living History of cerebrovascular accident (CVA) with residual deficit Chronic UTI- Primary Urinary tract infection, site not specified Primary hypertension ([facility])- Primary Unspecified essential hypertension Cerebrovascular accident (CVA), unspecified mechanism ([facility]) Dizziness and giddiness Overflow incontinence of urine Overflow incontinence CRYSTAL (generalized anxiety disorder) ([facility]) Generalized anxiety disorder Impaired mobility and activities of daily living Ataxia- Primary Lack of coordination Gait instability Abnormality of gait Expressive aphasia Memory difficulty Memory loss History of ischemic stroke Acute diffuse otitis externa of both ears- Primary documented in this encounter [facility] [...] mechanism (CMS/HCC) Atherosclerosis of coronary artery of [place] heart, unspecified vessel or lesion type, unspecified whether angina present (CMS/[facility]) Primary hypertension ([facility]) Unspecified essential hypertension Stenosis of right carotid artery Occlusion and stenosis of carotid artery without mention of cerebral infarction Mixed hyperlipidemia (CMS/HCC) Mixed hyperlipidemia Dizziness and giddiness Impaired mobility and activities of daily living Migraine with aura and without status migrainosus, not intractable (CMS/HCC) Muscle spasm Spasm of muscle Anxiety and depression ([facility]) Iron deficiency Disorders of iron metabolism Psychophysiological insomnia Persistent disorder of initiating or maintaining sleep Primary hypertension (CMS/HCC)- Primary Unspecified essential hypertension Heart failure, unspecified ([facility]) Heart failure, unspecified Peripheral vascular disease, unspecified ([facility]) Peripheral vascular disease, unspecified Atherosclerosis of coronary artery of [place] heart, unspecified vessel or lesion type, unspecified whether angina present ([facility]) Stenosis of right carotid artery Occlusion and stenosis of carotid artery without mention of cerebral infarction Recurrent major depressive disorder, in full remission ([facility]) Cerebrovascular accident (CVA), unspecified mechanism ([facility]) Muscle spasm Spasm of muscle Iron deficiency Disorders of iron metabolism Psychophysiological insomnia Persistent disorder of initiating or maintaining sleep Migraine with aura and without status migrainosus, not intractable ([facility]/HCC) CRYSTAL (generalized anxiety disorder) ([facility]) Generalized anxiety disorder UTI symptoms Anxiety and depression ([facility]) Overflow incontinence of urine Overflow incontinence Chronic UTI Urinary tract infection, site not specified Impaired mobility and activities of daily living History of cerebrovascular accident (CVA) with residual deficit Chronic UTI- Primary Urinary tract infection, site not specified Primary hypertension ([facility]/HCC)- Primary Unspecified essential hypertension Cerebrovascular accident (CVA), unspecified mechanism ([facility]/HCC) Dizziness and giddiness Overflow incontinence of urine Overflow incontinence CRYSTAL (generalized anxiety disorder) ([facility]) Generalized anxiety disorder Impaired mobility and activities of daily living Acute diffuse otitis externa of both ears- Primary Expressive aphasia- Primary Memory difficulty Memory loss History of ischemic stroke Staring episodes Other insomnia Stress due to family tension documented in this encounter [facility]* Diagnosis URTI (acute upper respiratory [...] mechanism (CMS/HCC) Atherosclerosis of coronary artery of [place] heart, unspecified vessel or lesion type, unspecified whether angina present (CMS/HCC) Primary hypertension ([facility]/HCC) Unspecified essential hypertension Stenosis of right carotid artery Occlusion and stenosis of carotid artery without mention of cerebral infarction Mixed hyperlipidemia (CMS/HCC) Mixed hyperlipidemia Dizziness and giddiness Impaired mobility and activities of daily living Migraine with aura and without status migrainosus, not intractable (CMS/HCC) Muscle spasm Spasm of muscle Anxiety and depression ([facility]/HCC) Iron deficiency Disorders of iron metabolism Psychophysiological insomnia Persistent disorder of initiating or maintaining sleep Primary hypertension (CMS/HCC)- Primary Unspecified essential hypertension Heart failure, unspecified (CMS/HCC) Heart failure, unspecified Peripheral vascular disease, unspecified (CMS/HCC) Peripheral vascular disease, unspecified Atherosclerosis of coronary artery of [place] heart, unspecified vessel or lesion type, unspecified [...] tract infection, site not specified Primary hypertension ([facility]/HCC)- Primary Unspecified essential hypertension Cerebrovascular accident (CVA), unspecified mechanism ([facility]/HCC) Dizziness and giddiness Overflow incontinence of urine Overflow incontinence CRYSTAL (generalized anxiety disorder) ([facility]) Generalized anxiety disorder Impaired mobility and activities of daily living Acute diffuse otitis externa of both ears- Primary Chronic UTI- Primary Urinary tract infection, site not specified Anxiety and depression ([facility]) Overflow incontinence of urine Overflow incontinence documented in this encounter [facility]* Diagnosis URTI (acute upper respiratory [...] oropharyngeal phase Dizziness and giddiness Primary hypertension ([facility])- Primary Unspecified essential hypertension Migraine with aura and without status migrainosus, not intractable ([facility]) Oropharyngeal dysphagia Dysphagia, oropharyngeal phase Oropharyngeal dysphagia- Primary Dysphagia, oropharyngeal phase Dysarthria Cerebrovascular accident (CVA), unspecified mechanism ([facility]) Atherosclerosis of coronary artery of [place] heart, unspecified vessel or lesion type, unspecified whether angina present ([facility]) Primary hypertension ([facility]) Unspecified essential hypertension Stenosis of right carotid artery Occlusion and stenosis of carotid artery without mention of cerebral infarction Mixed hyperlipidemia ([facility]) Mixed hyperlipidemia Dizziness and giddiness Impaired mobility and activities of daily living Migraine with aura and without status migrainosus, not intractable ([facility]) Muscle spasm Spasm of muscle Anxiety and depression ([facility]) Iron deficiency Disorders of iron metabolism Psychophysiological insomnia Persistent disorder of initiating or maintaining sleep Primary hypertension ([facility])- Primary Unspecified essential hypertension Heart failure, unspecified ([facility]) Heart failure, unspecified Peripheral vascular disease, unspecified ([facility]) Peripheral vascular disease, unspecified Atherosclerosis of coronary artery of [place], unspecified vessel or lesion type, unspecified whether angina present ([facility]) Stenosis of right carotid artery Occlusion and [...] of both ears- Primary Primary progressive aphasia (CMS/HCC)- Primary Ataxia Lack of coordination Memory difficulty Memory loss History of ischemic stroke Other insomnia DULCE MARIA (obstructive sleep apnea) Obstructive sleep apnea (adult) (pediatric) Severe episode of recurrent major depressive disorder, without psychotic features (HCC) (CMS/HCC) Severe anxiety documented in this encounter [facility]* [...] Dysphagia, oropharyngeal phase Dizziness and giddiness Primary hypertension- Primary Unspecified essential hypertension Migraine with aura and without status migrainosus, not intractable Oropharyngeal dysphagia Dysphagia, oropharyngeal phase Oropharyngeal dysphagia- Primary Dysphagia, oropharyngeal phase Dysarthria Cerebrovascular accident (CVA), unspecified mechanism (HCC) Atherosclerosis of coronary artery of [place], unspecified vessel or lesion type, unspecified whether angina present Primary hypertension Unspecified essential hypertension Stenosis of right carotid artery Occlusion and stenosis of carotid artery without mention of cerebral infarction Mixed hyperlipidemia Mixed hyperlipidemia Dizziness and giddiness Impaired mobility and activities of daily living Migraine with aura and without status migrainosus, not intractable Muscle spasm Spasm of muscle Anxiety and depression Iron deficiency Disorders of iron metabolism Psychophysiological insomnia Persistent disorder of initiating or maintaining sleep Primary hypertension- Primary Unspecified essential hypertension Heart failure, unspecified (HCC) Heart failure, unspecified Peripheral vascular disease, unspecified Atherosclerosis of coronary artery of [place], unspecified vessel or lesion type, unspecified whether angina present Stenosis of right carotid artery Occlusion and stenosis of carotid artery without mention of cerebral infarction Recurrent major depressive disorder, in full remission Cerebrovascular accident (CVA), unspecified mechanism (HCC) Muscle spasm Spasm of muscle Iron deficiency Disorders of iron metabolism Psychophysiological insomnia Persistent disorder of initiating or maintaining sleep Migraine with aura and without status migrainosus, not intractable CRYSTAL (generalized anxiety disorder) Generalized anxiety disorder UTI symptoms Anxiety and depression Overflow incontinence of urine Overflow incontinence Chronic UTI Urinary tract infection, site not specified Impaired mobility and activities of daily living History of cerebrovascular accident (CVA) with residual deficit Chronic UTI- Primary Urinary tract infection, site not specified Primary hypertension- Primary Unspecified essential hypertension Cerebrovascular accident (CVA), unspecified mechanism (HCC) Dizziness and giddiness Overflow incontinence of urine Overflow incontinence CRYSTAL (generalized anxiety disorder) Generalized anxiety disorder Impaired mobility and activities of daily living Primary hypertension- Primary Unspecified essential hypertension Atherosclerosis of coronary artery of [place], unspecified vessel or lesion type, unspecified whether angina present CRYSTAL (generalized anxiety disorder) Generalized anxiety disorder Recurrent major depressive disorder, in full remission Episode of recurrent major depressive disorder, unspecified depression episode severity Overflow incontinence of urine Overflow incontinence Psychophysiological insomnia Persistent disorder of initiating or maintaining sleep documented in this encounter [facility]* [...] Dysphagia, oropharyngeal phase Dizziness and giddiness Primary hypertension- Primary Unspecified essential hypertension Migraine with aura and without status migrainosus, not intractable Oropharyngeal dysphagia Dysphagia, oropharyngeal phase Oropharyngeal dysphagia- Primary Dysphagia, oropharyngeal phase Dysarthria Cerebrovascular accident (CVA), unspecified mechanism (HCC) Atherosclerosis of coronary artery of [place], unspecified vessel or lesion type, unspecified whether angina present Primary hypertension Unspecified essential hypertension Stenosis of right carotid artery Occlusion and stenosis of carotid artery without mention of cerebral infarction Mixed hyperlipidemia Mixed hyperlipidemia Dizziness and giddiness Impaired mobility and activities of daily living Migraine with aura and without status migrainosus, not intractable Muscle spasm Spasm of muscle Anxiety and depression Iron deficiency Disorders of iron metabolism Psychophysiological insomnia Persistent disorder of initiating or maintaining sleep Primary hypertension- Primary Unspecified essential hypertension Heart failure, unspecified (HCC) Heart failure, unspecified Peripheral vascular disease, unspecified Atherosclerosis of coronary artery of [place], unspecified vessel or lesion type, unspecified whether angina present Stenosis of right carotid artery Occlusion and stenosis of carotid artery without mention of cerebral infarction Recurrent major depressive disorder, in full remission Cerebrovascular accident (CVA), unspecified mechanism (HCC) Muscle spasm Spasm of muscle Iron deficiency Disorders of iron metabolism Psychophysiological insomnia Persistent disorder of initiating or maintaining sleep Migraine with aura and without status migrainosus, not intractable CRYSTAL (generalized anxiety disorder) Generalized anxiety disorder UTI symptoms Anxiety and depression Overflow incontinence of urine Overflow incontinence Chronic UTI Urinary tract infection, site not specified Impaired mobility and activities of daily living History of cerebrovascular accident (CVA) with residual deficit Chronic UTI- Primary Urinary tract infection, site not specified Primary hypertension- Primary Unspecified essential hypertension Cerebrovascular accident (CVA), unspecified mechanism (HCC) Dizziness and giddiness Overflow incontinence of urine Overflow incontinence CRYSTAL (generalized anxiety disorder) Generalized anxiety disorder Impaired mobility and activities of daily living Primary hypertension- Primary Unspecified essential hypertension Atherosclerosis of coronary artery of [place], unspecified vessel or lesion type, unspecified whether angina present CRYSTAL (generalized anxiety disorder) Generalized anxiety disorder Recurrent major depressive disorder, in full remission Episode of recurrent major depressive disorder, unspecified depression episode severity Overflow incontinence of urine Overflow incontinence Psychophysiological insomnia Persistent disorder of initiating or maintaining sleep Primary hypertension Unspecified essential hypertension Anxiety and depression Psychophysiological insomnia Persistent disorder of initiating or maintaining sleep Atherosclerosis of coronary artery of [place], unspecified vessel or lesion type, unspecified whether angina present Stenosis of right carotid artery Occlusion and stenosis of carotid artery without mention of cerebral infarction Cerebrovascular accident (CVA), unspecified mechanism (HCC) Migraine with aura and without status migrainosus, not intractable documented in this encounter [facility]* [...] Dysphagia, oropharyngeal phase Dizziness and giddiness Primary hypertension- Primary Unspecified essential hypertension Migraine with aura and without status migrainosus, not intractable Oropharyngeal dysphagia Dysphagia, oropharyngeal phase Oropharyngeal dysphagia- Primary Dysphagia, oropharyngeal phase Dysarthria Cerebrovascular accident (CVA), unspecified mechanism (HCC) Atherosclerosis of coronary artery of [place], unspecified vessel or lesion type, unspecified whether angina present Primary hypertension Unspecified essential hypertension Stenosis of right carotid artery Occlusion and stenosis of carotid artery without mention of cerebral infarction Mixed hyperlipidemia Mixed hyperlipidemia Dizziness and giddiness Impaired mobility and activities of daily living Migraine with aura and without status migrainosus, not intractable Muscle spasm Spasm of muscle Anxiety and depression Iron deficiency Disorders of iron metabolism Psychophysiological insomnia Persistent disorder of initiating or maintaining sleep Primary hypertension- Primary Unspecified essential hypertension Heart failure, unspecified (HCC) Heart failure, unspecified Peripheral vascular disease, unspecified Atherosclerosis of coronary artery of [place], unspecified vessel or lesion type, unspecified whether angina present Stenosis of right carotid artery Occlusion and stenosis of carotid artery without mention of cerebral infarction Recurrent major depressive disorder, in full remission Cerebrovascular accident (CVA), unspecified mechanism (HCC) Muscle spasm Spasm of muscle Iron deficiency Disorders of iron metabolism Psychophysiological insomnia Persistent disorder of initiating or maintaining sleep Migraine with aura and without status migrainosus, not intractable CRYSTAL (generalized anxiety disorder) Generalized anxiety disorder UTI symptoms Anxiety and depression Overflow incontinence of urine Overflow incontinence Chronic UTI Urinary tract infection, site not specified Impaired mobility and activities of daily living History of cerebrovascular accident (CVA) with residual deficit Chronic UTI- Primary Urinary tract infection, site not specified Primary hypertension- Primary Unspecified essential hypertension Cerebrovascular accident (CVA), unspecified mechanism (HCC) Dizziness and giddiness Overflow incontinence of urine Overflow incontinence CRYSTAL (generalized anxiety disorder) Generalized anxiety disorder Impaired mobility and activities of daily living Primary hypertension- Primary Unspecified essential hypertension Atherosclerosis of coronary artery of [place], unspecified vessel or lesion type, unspecified whether angina present CRYSTAL (generalized anxiety disorder) Generalized anxiety disorder Recurrent major depressive disorder, in full remission Episode of recurrent major depressive disorder, unspecified depression episode severity Overflow incontinence of urine Overflow incontinence Psychophysiological insomnia Persistent disorder of initiating or maintaining sleep Muscle spasm- Primary Spasm of muscle documented in this encounter [facility]* [...] Dysphagia, oropharyngeal phase Dizziness and giddiness Primary hypertension- Primary Unspecified essential hypertension Migraine with aura and without status migrainosus, not intractable Oropharyngeal dysphagia Dysphagia, oropharyngeal phase Oropharyngeal dysphagia- Primary Dysphagia, oropharyngeal phase Dysarthria Cerebrovascular accident (CVA), unspecified mechanism (HCC) Atherosclerosis of coronary artery of [place], unspecified vessel or lesion type, unspecified whether angina present Primary hypertension Unspecified essential hypertension Stenosis of right carotid artery Occlusion and stenosis of carotid artery without mention of cerebral infarction Mixed hyperlipidemia Mixed hyperlipidemia Dizziness and giddiness Impaired mobility and activities of daily living Migraine with aura and without status migrainosus, not intractable Muscle spasm Spasm of muscle Anxiety and depression Iron deficiency Disorders of iron metabolism Psychophysiological insomnia Persistent disorder of initiating or maintaining sleep Primary hypertension- Primary Unspecified essential hypertension Heart failure, unspecified (HCC) Heart failure, unspecified Peripheral vascular disease, unspecified Atherosclerosis of coronary artery of [place], unspecified vessel or lesion type, unspecified whether angina present Stenosis of right carotid artery Occlusion and stenosis of carotid artery without mention of cerebral infarction Recurrent major depressive disorder, in full remission Cerebrovascular accident (CVA), unspecified mechanism (HCC) Muscle spasm Spasm of muscle Iron deficiency Disorders of iron metabolism Psychophysiological insomnia Persistent disorder of initiating or maintaining sleep Migraine with aura and without status migrainosus, not intractable CRYSTAL (generalized anxiety disorder) Generalized anxiety disorder UTI symptoms Anxiety and depression Overflow incontinence of urine Overflow incontinence Chronic UTI Urinary tract infection, site not specified Impaired mobility and activities of daily living History of cerebrovascular accident (CVA) with residual deficit Chronic UTI- Primary Urinary tract infection, site not specified Primary hypertension- Primary Unspecified essential hypertension Cerebrovascular accident (CVA), unspecified mechanism (HCC) Dizziness and giddiness Overflow incontinence of urine Overflow incontinence CRYSTAL (generalized anxiety disorder) Generalized anxiety disorder Impaired mobility and activities of daily living Primary hypertension- Primary Unspecified essential hypertension Atherosclerosis of coronary artery of [place], unspecified vessel or lesion type, unspecified whether angina present CRYSTAL (generalized anxiety disorder) Generalized anxiety disorder Recurrent major depressive disorder, in full remission Episode of recurrent major depressive disorder, unspecified depression episode severity Overflow incontinence of urine Overflow incontinence Psychophysiological insomnia Persistent disorder of initiating or maintaining sleep Peripheral vascular disease, unspecified- Primary Atherosclerosis of coronary artery of [place], unspecified vessel or lesion type, unspecified whether angina present Stenosis of carotid artery, unspecified laterality documented in this encounter [facility] note* Diagnosis URTI (acute upper respiratory [...] Dysphagia, oropharyngeal phase Dizziness and giddiness Primary hypertension- Primary Unspecified essential hypertension Migraine with aura and without status migrainosus, not intractable Oropharyngeal dysphagia Dysphagia, oropharyngeal phase Oropharyngeal dysphagia- Primary Dysphagia, oropharyngeal phase Dysarthria Cerebrovascular accident (CVA), unspecified mechanism (HCC) Atherosclerosis of coronary artery of [place], unspecified vessel or lesion type, unspecified whether angina present Primary hypertension Unspecified essential hypertension Stenosis of right carotid artery Occlusion and stenosis of carotid artery without mention of cerebral infarction Mixed hyperlipidemia Mixed hyperlipidemia Dizziness and giddiness Impaired mobility and activities of daily living Migraine with aura and without status migrainosus, not intractable Muscle spasm Spasm of muscle Anxiety and depression Iron deficiency Disorders of iron metabolism Psychophysiological insomnia Persistent disorder of initiating or maintaining sleep Primary hypertension- Primary Unspecified essential hypertension Heart failure, unspecified (HCC) Heart failure, unspecified Peripheral vascular disease, unspecified Atherosclerosis of coronary artery of [place], unspecified vessel or lesion type, unspecified whether angina present Stenosis of right carotid artery Occlusion and stenosis of carotid artery without mention of cerebral infarction Recurrent major depressive disorder, in full remission Cerebrovascular accident (CVA), unspecified mechanism (HCC) Muscle spasm Spasm of muscle Iron deficiency Disorders of iron metabolism Psychophysiological insomnia Persistent disorder of initiating or maintaining sleep Migraine with aura and without status migrainosus, not intractable CRYSTAL (generalized anxiety disorder) Generalized anxiety disorder UTI symptoms Anxiety and depression Overflow incontinence of urine Overflow incontinence Chronic UTI Urinary tract infection, site not specified Impaired mobility and activities of daily living History of cerebrovascular accident (CVA) with residual deficit Chronic UTI- Primary Urinary tract infection, site not specified Primary hypertension- Primary Unspecified essential hypertension Cerebrovascular accident (CVA), unspecified mechanism (HCC) Dizziness and giddiness Overflow incontinence of urine Overflow incontinence CRYSTAL (generalized anxiety disorder) Generalized anxiety disorder Impaired mobility and activities of daily living Primary hypertension- Primary Unspecified essential hypertension Atherosclerosis of coronary artery of [place] heart, unspecified vessel or lesion type, unspecified whether angina present CRYSTAL (generalized anxiety disorder) Generalized anxiety disorder Recurrent major depressive disorder, in full remission Episode of recurrent major depressive disorder, unspecified depression episode severity Overflow incontinence of urine Overflow incontinence Psychophysiological insomnia Persistent disorder of initiating or maintaining sleep Psychophysiological insomnia Persistent disorder of initiating or maintaining sleep documented in this encounter [facility] HealthcareEvaluation note* Diagnosis URTI (acute upper respiratory [...] Dysphagia, oropharyngeal phase Dizziness and giddiness Primary hypertension- Primary Unspecified essential hypertension Migraine with aura and without status migrainosus, not intractable Oropharyngeal dysphagia Dysphagia, oropharyngeal phase Oropharyngeal dysphagia- Primary Dysphagia, oropharyngeal phase Dysarthria Cerebrovascular accident (CVA), unspecified mechanism (HCC) Atherosclerosis of coronary artery of [place] heart, unspecified vessel or lesion type, unspecified whether angina present Primary hypertension Unspecified essential hypertension Stenosis of right carotid artery Occlusion and stenosis of carotid artery without mention of cerebral infarction Mixed hyperlipidemia Mixed hyperlipidemia Dizziness and giddiness Impaired mobility and activities of daily living Migraine with aura and without status migrainosus, not intractable Muscle spasm Spasm of muscle Anxiety and depression Iron deficiency Disorders of iron metabolism Psychophysiological insomnia Persistent disorder of initiating or maintaining sleep Primary hypertension- Primary Unspecified essential hypertension Heart failure, unspecified (HCC) Heart failure, unspecified Peripheral vascular disease, unspecified Atherosclerosis of coronary artery of [place] heart, unspecified vessel or lesion type, unspecified whether angina present Stenosis of right carotid artery Occlusion and stenosis of carotid artery without mention of cerebral infarction Recurrent major depressive disorder, in full remission Cerebrovascular accident (CVA), unspecified mechanism (HCC) Muscle spasm Spasm of muscle Iron deficiency Disorders of iron metabolism Psychophysiological insomnia Persistent disorder of initiating or maintaining sleep Migraine with aura and without status migrainosus, not intractable CRYSTAL (generalized anxiety disorder) Generalized anxiety disorder UTI symptoms Anxiety and depression Overflow incontinence of urine Overflow incontinence Chronic UTI Urinary tract infection, site not specified Impaired mobility and activities of daily living History of cerebrovascular accident (CVA) with residual deficit Chronic UTI- Primary Urinary tract infection, site not specified Primary hypertension- Primary Unspecified essential hypertension Cerebrovascular accident (CVA), unspecified mechanism (HCC) Dizziness and giddiness Overflow incontinence of urine Overflow incontinence CRYSTAL (generalized anxiety disorder) Generalized anxiety disorder Impaired mobility and activities of daily living Primary hypertension- Primary Unspecified essential hypertension Atherosclerosis of coronary artery of [place] heart, unspecified vessel or lesion type, unspecified whether angina present CRYSTAL (generalized anxiety disorder) Generalized anxiety disorder Recurrent major depressive disorder, in full remission Episode of recurrent major depressive disorder, unspecified depression episode severity Overflow incontinence of urine Overflow incontinence Psychophysiological insomnia Persistent disorder of initiating or maintaining sleep Migraine with aura and without status migrainosus, not intractable documented in this encounter [facility]* [...] Dysphagia, oropharyngeal phase Dizziness and giddiness Primary hypertension- Primary Unspecified essential hypertension Migraine with aura and without status migrainosus, not intractable Oropharyngeal dysphagia Dysphagia, oropharyngeal phase Oropharyngeal dysphagia- Primary Dysphagia, oropharyngeal phase Dysarthria Cerebrovascular accident (CVA), unspecified mechanism (HCC) Atherosclerosis of coronary artery of [place] heart, unspecified vessel or lesion type, unspecified whether angina present Primary hypertension Unspecified essential hypertension Stenosis of right carotid artery Occlusion and stenosis of carotid artery without mention of cerebral infarction Mixed hyperlipidemia Mixed hyperlipidemia Dizziness and giddiness Impaired mobility and activities of daily living Migraine with aura and without status migrainosus, not intractable Muscle spasm Spasm of muscle Anxiety and depression Iron deficiency Disorders of iron metabolism Psychophysiological insomnia Persistent disorder of initiating or maintaining sleep Primary hypertension- Primary Unspecified essential hypertension Heart failure, unspecified (HCC) Heart failure, unspecified Peripheral vascular disease, unspecified Atherosclerosis of coronary artery of [place] heart, unspecified vessel or lesion type, unspecified whether angina present Stenosis of right carotid artery Occlusion and stenosis of carotid artery without mention of cerebral infarction Recurrent major depressive disorder, in full remission Cerebrovascular accident (CVA), unspecified mechanism (HCC) Muscle spasm Spasm of muscle Iron deficiency Disorders of iron metabolism Psychophysiological insomnia Persistent disorder of initiating or maintaining sleep Migraine with aura and without status migrainosus, not intractable CRYSTAL (generalized anxiety disorder) Generalized anxiety disorder UTI symptoms Anxiety and depression Overflow incontinence of urine Overflow incontinence Chronic UTI Urinary tract infection, site not specified Impaired mobility and activities of daily living History of cerebrovascular accident (CVA) with residual deficit Chronic UTI- Primary Urinary tract infection, site not specified Primary hypertension- Primary Unspecified essential hypertension Cerebrovascular accident (CVA), unspecified mechanism (HCC) Dizziness and giddiness Overflow incontinence of urine Overflow incontinence CRYSTAL (generalized anxiety disorder) Generalized anxiety disorder Impaired mobility and activities of daily living Primary hypertension- Primary Unspecified essential hypertension Atherosclerosis of coronary artery of [place] heart, unspecified vessel or lesion type, unspecified whether angina present CRYSTAL (generalized anxiety disorder) Generalized anxiety disorder Recurrent major depressive disorder, in full remission Episode of recurrent major depressive disorder, unspecified depression episode severity Overflow incontinence of urine Overflow incontinence Psychophysiological insomnia Persistent disorder of initiating or maintaining sleep Anxiety and depression documented in this encounter [facility]* Diagnosis Onset Date Resolution Status Admit Date Dizziness and giddiness acuteOctober 2024 9:05amEpisode of recurrent major depressive disorder acuteOctober 2024 9:05amEssential hypertensionacuteOctober 2024 9:05amGAD (generalized anxiety disorder)acuteOctober 2024 9:05amMigraine with aura and without status migrainosus, not intractableacuteOctober 2024 9:05am [facility] Work Phone: History general Narrative - Reported* Type Description Date Medical History DVT Medical Historyleft MCA strokeMedical Historyaphasia due to CVAMedical History anemiaMedical HistoryHTNMedical HistoryhyperlipidemiaMedical Historydystonia Medical HistorydysphagiaMedical Historytraumatic brain injuryMedical Historyleft lower leg CellulitisSurgical HistorytonsillectomySurgical Historycholecystectomy Surgical HistoryappendectomySurgical Historyknee replacement X 5 rightSurgical Historyknee surgery leftSurgical Historybreast duct removal leftSurgical History Right CEA with patch angioplasty04/06/20Hospitalization HistoryCVA2 Hospitalization HistorychildbirthHospitalization HistoryX2 [id number] [employer] Other History general Narrative - Reported* Type Description Date Medical History DVT Medical Historyleft MCA strokeMedical Historyaphasia due to CVAMedical History anemiaMedical HistoryHTNMedical HistoryhyperlipidemiaMedical Historydystonia Medical HistorydysphagiaMedical Historytraumatic brain injuryMedical Historyleft lower leg CellulitisSurgical HistorytonsillectomySurgical Historycholecystectomy Surgical HistoryappendectomySurgical Historyknee replacement X 5 rightSurgical Historyknee surgery leftSurgical Historybreast duct removal leftSurgical History Right CEA with patch angioplasty04/06/20Surgical HistoryOpen reduction internal fixation Left intra-articular distal radius fracture (2-part), Left Carpal t unnel syndrome release with decompression of thenar motor branch,03/2021 Hospitalization HistoryCVHospitalization HistorychildbirthHospitalization HistoryX2 [id number] [employer] Other Hospital Discharge instructions Additional Instructions Please call and schedule an appointment with your established Political Consultant. We attempted to make this appointment for you but the office was currently unavailable.[facility] Work Phone: Hospital Discharge instructions No data available for this section [facility]InstructionsNot on filedocumented in this encounter [facility]ructionsNot on filedocumented in this encounter [facility] SystemInstructionsNot on filedocumented in this encounter [facility] SystemInstructionsNot on filedocumented in this encounter [facility] SystemInstructionsNot on filedocumented in this encounter [facility] SystemInstructionsNot on filedocumented in this encounter [facility] SystemProgress note No data available for this section [facility] Loki Reason for referral (narrative)* Consultation (Routine) - Pending ReviewSpecialtyDiagnoses / ProceduresReferred By ContactReferred To ContactSpeech Pathology Diagnoses Cerebrovascular accident (CVA), unspecified mechanism (CMS/HCC) Oropharyngeal dysphagia Dysarthria Procedures [place] OFFICE/OUTPATIENT NEW HIGH MDM 60 MINUTES Cindy Collado NP [address] [place] [address] Referral IDStatusRethree rivers healthcareStart DateExpiration DateVisits RequestedVisits [id number] Review Specialty Services Required / [facility] HealthcareReason for referral (narrative)* Consultation (Routine) - Pending ReviewSpecialtyDiagnoses / ProceduresReferred By ContactReferred To Contact Neurology Diagnoses Cerebrovascular accident (CVA), unspecified mechanism (CMS/HCC) Dizziness and giddiness Impaired mobility and activities of daily living Migraine with aura and without status migrainosus, not intractable (CMS/HCC) Procedures [place] OFFICE/OUTPATIENT NEW HIGH MDM 60 MINUTES Cindy Collado NP [address] [place] [address] Nakul Zazueta DO [address] [facility] [address] [place] [address] Referral IDStatPremier Health DateExpiration DateVisits RequestedVisits [id number] Review Specialty Services Required / * Consultation (Urgent) - Pending ReviewSpecialtyDiagnoses / ProceduresReferred By ContactReferred To ContactOtolaryngology Diagnoses Oropharyngeal dysphagia Procedures [place] OFFICE/OUTPATIENT NEW HIGH MDM 60 MINUTES Cindy Collado NP [address] [place] [address] Aime Clark W, DO [address] [place] [address] Referral IDStatusReasonStart DateExpiration DateVisits RequestedVisits [id number] Review Specialty Services Required / [facility] for referral (narrative)* Consultation (Routine) - Pending ReviewSpecialtyDiagnoses / ProceduresReferred By ContactReferred To Contact Neurology Diagnoses Rabia Hunt PA-C [address] [place] [address] [address] [place] [address] Martin Arita MD [address] [place] [address], [address], [address], [address] [place] [address] Referral IDStatusReasonStart DateExpiration DateVisits RequestedVisits [id number] Review Specialty Services Required / [facility] for referral (narrative)No reason for referral information availableMount Carmel Health System Work Phone: [facility] for visit Narrative* Consultation (Routine) - Pending ReviewSpecialtyDiagnoses / ProceduresReferred By ContactReferred To ContactNeurology Diagnoses Rabia Hunt PA-C [address] [place] [address] [address] [place] [address] Martin Arita MD [address] [place] [address], [address], [address], [address] [place] [address] Referral IDStatusReSpring[facility] DateExpiration DateVisits RequestedVisits [id number] Review Specialty Services Required / [facility] for visit Narrative* Consultation (Routine) - ClosedSpecialtyDiagnoses / ProceduresReferred By ContactReferred To Contact Neuropsychology Diagnoses Expressive aphasia Memory difficulty History of ischemic stroke Procedures [place] OFFICE/OUTPATIENT NEW HIGH MDM 60 MINUTES Jameson Mcleod, SANDRA [address] [place] [address] Phone: tel: Chaim Hare, PhD [address] [address] Phone: tel: fax: Referral IDStatusReasonStart DateExpiration DateVisits RequestedVisits [id number] Specialty Services Required / [facility] Healthcare Summary Purpose Family History Relationship Condition Age at Onset Recorded Date/T darrell father Malignant neoplasm of prostate Unknown Malignant neoplasm of boneUnknownType 2 diabetes mellitusUnknownNot Specified Malignant neoplasm of brainUnknownNot SpecifiedMalignant neoplasm of breast Unknownnatural sonDown syndromeUnknowndaughterMalignant neoplasm of lungUnknown brotherMyocardial infarctionUnknown Relationship Condition Age at Onset Recorded Date/T darrell father Malignant neoplasm of prostate Unknown Malignant neoplasm of boneUnknownType 2 diabetes mellitusUnknownNot Specified Malignant neoplasm of brainUnknownNot SpecifiedMalignant neoplasm of breast Unknownnatural sonDown syndromeUnknowndaughterMalignant neoplasm of lungUnknown brotherMyocardial infarctionUnknownfatherMalignant neoplasmUnknownDeceased Unknownfamily memberDeceasedUnknownNot SpecifiedDeceasedUnknownMalignant neoplasmUnknownsisterDeceasedUnknownFamily history of lung cancerUnknown Relationship Condition Age at Onset Recorded Date/T darrell father Malignant neoplasm of prostate Unknown Malignant neoplasm of boneUnknownType 2 diabetes mellitusUnknownmotherMalignant neoplasm of brainUnknownmotherMalignant neoplasm of breastUnknownsonDown syndromeUnknowndaughterMalignant neoplasm of lungUnknownbrotherMyocardial infarctionUnknownfatherMalignant neoplasmUnknownDeceasedUnknownfamily member DeceasedUnknownmotherDeceasedUnknownMalignant neoplasmUnknownsisterDeceased UnknownFamily history of lung cancerUnknown Advance Directives Advance Directive Response Recorded Date/ Time Advance Directives No October 9:28am Advance Directive Response Recorded Date/ Time Advance Directives No October 8:28am Advance Directive Response Recorded Date/ Time Advance Directives No May 12 4:06pm Advance Directive Response Recorded Date/ Time Advance Directives No May 12 3:06pm Date ActivatedDate InactivatedComments07/22/2018 6:33 AM07/24/2018 4:48 PMDate ActivatedDate InactivatedComments04/05/2018 3:35 PM2 5:18 PMDate ActivatedDate InactivatedComments04/05/2018 10:14 AM04/05/2018 3:35 PMCode Status Date ActivatedDate InactivatedCommentsFull Code07/22/2018 6:33 AM07/24/2018 4:48 PMCode StatusDate ActivatedDate InactivatedCommentsFull Code04/05/2018 3:35 PM 04/10/2018 5:18 PMFull Code04/05/2018 10:14 AM04/05/2018 3:35 PMDate ActivatedDate InactivatedComments07/22/2018 6:33 AM07/24/2018 4:48 PMDate ActivatedDate InactivatedComments04/05/2018 3:35 PM2 5:18 PMDate ActivatedDate InactivatedComments04/05/2018 10:14 AM04/05/2018 3:35 PMCode StatusDate Activated Date InactivatedCommentsFull Code07/22/2018 6:33 AM07/24/2018 4:48 PMCode Status Date ActivatedDate InactivatedCommentsFull Code04/05/2018 3:35 PM2 5:18 PMFull Code04/05/2018 10:14 AM04/05/2018 3:35 PM Chief Complaint and Reason for Visit Chief Complaint L hand fx M79.641 S62.642A stroke w/ residual dysarthuria; word finding i65.23 Chief Complaint i65.23 stroke w/ residual dysarthuria; word finding weakness/ AMSReason for VisitAKI (acute kidney injury) AMS (altered mental status) Impaired mobility and activities of daily living Symptomatic bradycardia Chief Complaint i65.23 stroke w/ residual dysarthuria; word finding weakness/ AMSReason for VisitAKI (acute kidney injury) AMS (altered mental status) Impaired mobility and activities of daily living Symptomatic bradycardia H/O traumatic brain injury HLD (hyperlipidemia) HTN, goal below 140/90 Chief Complaint weakness/ AMS stroke w/ residual dysarthuria; word findingReason for VisitAKI (acute kidney injury) AMS (altered mental status) Impaired mobility and activities of daily living Symptomatic bradycardia H/O traumatic brain injury HLD (hyperlipidemia) HTN, goal below 140/90 Chief Complaint stroke w/ residual d ysarthuria; word finding Dysuria Chief Complaint K CVA Chief Complaint I65.23 1 year follow up; Carotid U/S at 8:30am carotis stenosis carotis stenosis 4 week follow up; TCARReason for VisitCarotid stenosis Carotid stenosis Chief Complaint I65.23 1 year follow up; Carotid U/S at 8:30am carotis stenosis carotis stenosis 4 week follow up; TCAR Poss utiReason for VisitCarotid stenosis Carotid stenosis UTI (urinary tract infection) Contact with or exposure to viral disease Chief Complaint Poss uti N30.00 3 MONTH FOLLOW UP; CAROTID DUPLEX 9:30A I65.23Reason for VisitUTI (urinary tract infection) Contact with or exposure to viral disease Chief Complaint Poss uti N30.00 3 MONTH FOLLOW UP; CAROTID DUPLEX 9:30A I65.23Reason for VisitUTI (urinary tract infection) Contact with or exposure to viral disease Internal carotid artery stent present Chief Complaint R13.12 Chief Complaint Admit Date R13.12 December 12, 2023 1 0:11am 6 MONTH FOLLOW UP; CAROTID 9:30A February 20, 2024 10:00am Reason for Visit Admit Date Carotid stenosis February 20, 2024 10 :00am Internal carotid artery stent present Tian loyd 2024 10:00am Lower extremity edema February 20, 2024 10:00am PAD (peripheral artery disease) February 20, 2024 10:00am Chief Complaint Admit Date 1 month f/u *40 min appt* August 13, 2024 2:44pm Reason for Visit Admit Date Ataxia August 13, 2024 2:44p m Gait instability August 13, 2024 2:44p m Ischemic stroke August 13, 2024 2:44p m Primary progressive aphasia August 13 2:44pm Chief Complaint Admit Date R47.01 November 24, 2024 1 0:15am 3M November 26, 2024 9 :05am Reason for Visit Admit Date Dizziness and giddiness November 26 9:05am Episode of recurrent major depressive di sorder November 26, 2024 9:05am Essential hypertension November 26 9:05am CRYSTAL (generalized anxiety disorder) Octob er 2024 9:05am Migraine with aura and witho ut status migrainosus, not intractable November 26, 2024 9:05am Chief Complaint Admit Date R47.01 November 24, [...] 1:35am Aphasia December 03, 2024 1 1:35am Reason for Referral SpecialtyDiagnoses / ProceduresReferred By ContactReferred To [facility] Diagnoses Dizzy Functional gait disorder Martin Arita MD [address] [facility], [address], [address], [address] [place] [address] [address] [address] [place] [address] Phone: [phone] Fax: [phone] Referral Neha DateExpiration DateVisits RequestedVisits [id number] Review Additional Source Comments INFORMATION SOURCE (unrecogn ized section and content) DATE CREATED AUTHOR 03/09/[address] [facility] DATE CREATED AUTHOR AUTHOR'S ORGANIZ ATION 12/03/2021 [facility] DATE CREATED AUTHOR AUTHOR'S ORGANIZ ATION 02/28/2022 DATE CREATED AUTHOR AUTHOR'S ORGANIZ ATION 05/13/2023 [facility] DATE CREATED AUTHOR AUTHOR'S ORGANIZ ATION 07/04/2023 [facility] DATE CREATED AUTHOR AUTHOR'S ORGANIZ ATION 07/16/2023 [facility] DATE CREATED AUTHOR AUTHOR'S ORGANIZ ATION 07/18/2023 [facility] DATE CREATED AUTHOR AUTHOR'S ORGANIZ ATION 02/26/2024 [facility] DATE CREATED AUTHOR AUTHOR'S ORGANIZ ATION 04/05/2024 [facility] DATE CREATED AUTHOR AUTHOR'S ORGANIZ ATION 04/17/2024 [facility] DATE CREATED AUTHOR AUTHOR'S ORGANIZ ATION 05/06/2024 [facility] DATE CREATED AUTHOR AUTHOR'S ORGANIZ ATION 05/08/2024 [facility] DATE CREATED AUTHOR AUTHOR'S ORGANIZ ATION 07/01/2024 [facility] DATE CREATED AUTHOR AUTHOR'S ORGANIZ ATION 07/09/2024 [facility] DATE CREATED AUTHOR AUTHOR'S ORGANIZ ATION 07/24/2024 [facility] DATE CREATED AUTHOR AUTHOR'S ORGANIZ ATION 08/07/2024 [facility] DATE CREATED AUTHOR AUTHOR'S ORGANIZ ATION 08/12/2024 [facility] DATE CREATED AUTHOR AUTHOR'S ORGANIZ ATION 09/19/2024 [facility] DATE CREATED AUTHOR AUTHOR'S ORGANIZ ATION 10/10/2024 [facility] DATE CREATED AUTHOR AUTHOR'S ORGANIZ ATION 11/19/2024 [facility] DATE CREATED AUTHOR AUTHOR'S ORGANIZ ATION 11/25/2024 [facility] DATE CREATED AUTHOR AUTHOR'S ORGANIZ ATION 11/25/2024 [facility] DATE CREATED AUTHOR AUTHOR'S ORGANIZ ATION 11/26/2024 [facility] REASON FOR VISIT (unrecogniz ed section and content) ReasonCommentsOropharyngeal DysphagiaNew Patient : Oropharyngeal Dysphagia SpecialtyDiagnoses / ProceduresReferred By ContactReferred To Contact Otolaryngology Diagnoses Oropharyngeal dysphagia Procedures [place] OFFICE/OUTPATIENT [facility] 60 MINUTES Cindy Collado, D[employer] WE[employer] HELPER [address] [place] [address] Phone: tel: fax: Aime Clark, DO [address] [place] [address] Phone: tel: fax: Referral IDStatusReasonStart DateExpiration DateVisits RequestedVisits [id number] Specialty Services Required /[id number] DateCommentsMed [id number] Oropharyngeal dysphagiaReasonOnset NwkpOywupqluzskkkncgy88/14/2023ReasonOnset DateCommentsoffice notes4ReasonOnset DateCommentsNEW PATIENT REFERRAL 4ReasonOnset DateCommentsSooner Appt4ReasonOnset DateComments Brocknnzfeo45/22/2024ReasonCommentsHypertensionReasonCommentsBalance difficulty Memory LossReasonOnset DateCommentsMed Glcvwl9508/12/2024ReasonOnset DateComments Med Dqpmrf2609/28/2024 Care Teams (unrecognized sec tion and content) Team Status: Active Member Role Status Dates Shaikh Barb MD Primary Care Provider Active Team Status: Inactive Member Role Status Dates Shaikh Barb MD Primary Care Provide r, Attending Provider Active Start: January 21, 2023 End: January 21, 2023 Team Status: Inactive Member Role Status Dates Shaikh Barb MD Primary Care Provider Active Andre Gallo ProviderActive Team Status: Inactive Member Role Status Reid Day MD Primary Care Provider Active Andre Garcia ProviderActive Team Status: Active Member Role Status Dates Gerry Godwin MD Primary Care Provider Active Andre Costa ProviderActive Team Status: Active Member Role Status Reid Day MD Primary Care Provider Active Rafiq Bahena DOEmerdaija ProviderActiveAshleigh Cruz , MDAdmit Provider, Attending ProviderActiveShira Castañeda , RNOther ProviderActiveW Dorian Mendoza , Other ProviderActiveBetito Arellano MDOther ProviderActive Aneesh Zendejas MDOther ProviderActiveMotania Leos MDOther ProviderActiveBrayan Ribera MDOther ProviderActiveDonna Elian Brown , APRNOther ProviderActiveShefali Garibay MDOther ProviderActiveMohammarcell Nava MDOther ProviderActiveAlissa Young MDOther ProviderActiveCardiana Garcia VEGETABLE FARMER-BCOther ProviderActive Team Status: Inactive Member Role Status Reid Day MD Primary Care Provider Active Rafiq Bahena DOEmerdaija ProviderActiveAshleigh Cruz , MDAdmit ProviderActiveAndre Cosby ProviderActive Team Status: Inactive Member Role Status Dates Gerry Godwin MD Primary Care Provider Active Andre Costa ProviderActive Team Status: Inactive Member Role Status Reid Day MD Primary Care Provider Active Fawn Burton ProviderActiveTeam MemberRelationshipSpecialty Start DateEnd Date Shaikh Day MD PCP - GeneralInternal Medicine08/30/22 Team Status: Inactive Member Role Status Reid Day MD Primary Care Provider Active Start: April 09, 2023 End: April 09, 2023MaAndre Mendoza ProviderActiveStart: April 09, 2023 End: April 09, 2023 Team Status: Inactive Member Role Status Reid Day MD Primary Care Provider Active Start: April 09, 2023 End: April 09, 2023ANA ThompsonCAttensacha ProviderActiveStart: April 09, 2023 End: April 09, 2023 Team Status: Inactive Member Role Status Reid Day MD Primary Care Provider Active Start: April 12, 2023 End: April 13, 2023Orlando Gallo Provider, Attending Provider ActiveStart: April 12, 2023 End: April 13, 2023 Team Status: Active Member Role Status Reid Day MD Primary Care Provider Active Start: April 12, 2023 Orlando Gallo Provider, Attending Provider, Other Provider ActiveStart: April 12, 2023 Team Status: Inactive Member Role Status Reid Day MD Primary Care Provider Active Start: May 09, 2023 End: May 09, 2023Andre Gallo ProviderActiveStart: May 09, 2023 End: May 09, 2023 Team Status: Inactive Member Role Status Reid Day MD Primary Care Provider Active Start: May 11, 2023 End: May 10Gaby Ngo ProviderActiveStart: May 11, 2023 End: May 11, 2023 Team Status: Inactive Member Role Status Reid Still NP-C Attending Provider Active S tart: May 12, 2023 End: May 12, 2023 Team Status: Inactive Member Role Status MOHINDER Samuels Attending Provider Active S tart: May 12, 2023 End: May 12, 2023RIRI [facility] Care ProviderActiveStart: May 12, 2023 End: May 12, 2023 Team Status: Inactive Member Role Status Reid Day MD Primary Care Provider Active Start: August 08, 2023 End: August 08, 2023Andre Gallo ProviderActiveStart: August 08, 2023 End: August 08, 2023 Team Status: Active Member Role Status Dates Shaikh Barb MD Primary Care Provider Active Start: August 08, 2023 Felicita Sumner , DYE WEIGHER HELPER-CAttending ProviderActiveStart: August 08, 2023 Team Status: Inactive Member Role Status Dates Shaikh Barb MD Primary Care Provider Active Start: August 08, 2023 End: August 08, 2023Felicita Sumner , DYE WEIGHER HELPER-CAttending ProviderActiveStart: August 08, 2023 End: August 08, 2023Team MemberRelationshipSpecialtyStart DateEnd Date Gerry Godwin MD [address] [place] [address] PCP - [facility] Medicine10/03/23 Shaikh Day MD [address] [place] [address] PCP - [place]10/13/23 Cindy Collado NP [address] [place] [address] [facility]10/03/23Team MemberRelationshipSpecialtyStart DateEnd Date Gerry Godwin MD [address] [place] [address] PCP - [facility]10/03/23 Shaikh Day MD [address] [place] [address] PCP - Donald ZARCO10/13/23 Cindy Collado NP [address] [place] [address] [facility]10/03/23Team MemberRelationshipSpecialtyStart DateEnd Date Gerry Godwin MD [address] [place] [address] [facility]10/03/23 Shaikh Day MD [address] [place] [address] PCP - Donald ZARCO10/13/23 Cindy Collado, DYE WEIGHER HELPER [address] [place] [address] Nurse [facility]erHamilton [facility]10/03/23 Aime Clark DO [address] [facility] [place] [address] Bxwbyaocamakmk08/21/24Team MemberRelationshipSpecialtyStart DateEnd Date Gerry Godwin MD [address] [place] [address] PCP - [facility]10/03/23 Shaikh Day MD [address] [place] [address] PCP - Donald ZARCO10/13/23 Cindy Collado, SANDRA [address] [place] [address] Nurse Pract[facility]erHamilton [facility]10/03/23 Kavita Aime Tye, DO [address] [place] [address] Jnsgzozhjdkktw11/21/24Team MemberRelationshipSpecialtyStart DateEnd Date Gerry Godwin MD [address] [place] [address] [facility] - [facility]10/03/23 Shaikh Day MD [address] [place] [address] PCP - Donald ZARCO10/13/23 Cindy Collado NP [address] [place] [place] [address] Nurse [facility]George [facility] Medicine10/03/23 Kavita Aime Tye, DO [address] [place] [address] Zlqipvtkqntgnj98/21/24Team MemberRelationshipSpecialtyStart DateEnd Date Shaikh Day MD [address] [place] [address] PCP - Donald ZARCO10/13/23 Unallocated, Olga Nichole MD [address] [place] [address] [facility]CP - [facility] Hbcxngyw31/22/24 Cindy Collado NP [address] [place] [address] Nurse PractitionerFamily Medicine10/03/23 Aime Clark DO [address] [place] [address] Aeqcmfghfwjkeq09/21/24 Nakul Zazueta DO [address] [address] Referring ZjudcfknhEnmqsgtok18/28/24 Ynes Snyder NP [address] [address] Nurse JjmyyeisvzryHgobsmjmg07/28/24 Jameson Mcleod NP [address] [address] Nurse IzxvshjouefiKyuqyfcwq74/28/24 Team Status: Inactive Member Role Status Dates Shaikh Barb MD Primary Care Provider Active Start: December 12, 2023 End: December 11abilio Clark DOAttending ProviderActiveStart: December 12, 2023 End: December 12, 2023Team MemberRelationshipSpecialtyStart DateEnd Date Gerry Godwin MD [address] [place] [address] PCP - GeneralFamily Medicine10/03/23 Cindy Collado NP [address] [place] [address] Nurse PractitionerFamily Medicine10/03/23Team MemberRelationshipSpecialtyStart DateEnd Date Gerry Godwin MD [address] [place] [address] PCP - [facility]10/03/23 Cindy Collado NP [address] [place] [address] Nurse PractitionerHamilton [facility]10/03/23Team MemberRelationshipSpecialtyStart DateEnd Date Gerry Godwin MD [address] [place] [address] PCP - [facility]10/03/23 Cindy Collado NP [address] [place] [address] Nurse [facility]10/03/23Team MemberRelationshipSpecialtyStart DateEnd Date Shaikh Day MD [address] [place] [address] PCP - [facility] [place]10/13/23 Gerry Godwin MD [address] [place] [address] PCP - [facility]12/12/23 Cindy Collado NP [address] [place] [address] Nurse Pract[facility]erHamilton [facility]10/03/23 Aime Clark DO [address] [place] [address] Dbovnwtrwghrqj67/21/24 Nakul Zazueta DO [address] [address] Referring EvlsqldedVopvicfos26/28/24 Ynes Snyder NP [address] [address] Nurse YvnpvoetqjhgCyritibny56/28/24 Jameson Mcleod NP [address] [address] Nurse PounukpufumfIngeocnoh14/28/24Team MemberRelationshipSpecialtyStart DateEnd Date Shaikh Day MD [address] [place] [address] PCP - [address] [place]10/13/23 Gerry Godwin MD [address] [place] [address] PCP - GeneralFamily Cafyrtqs73/31/24 Cindy Collado NP [address] [place] [address] Nurse PractitionerFamily Medicine10/03/23 Aime Clark DO [address] [place] [address] Bhawsmypsdgcxd71/21/24 Nakul Zazueta DO [address] [place] [address] Referring IoidqbonuNoezjdvue54/28/24 Ynes Snyder, SANDRA [address] [address] [place] [address] Nurse QewqlhxeqtarHehwhbnbc30/28/24 Jameson Mcleod, SANDRA [address] [address] Nurse JfkpewtfinplNvnkxvrko61/28/24Team MemberRelationshipSpecialtyStart DateEnd Date Shaikh Day MD [address] [place] [address] PCP - [address] [place]10/13/23 Gerry Godwin MD [address] [place] [address] PCP - GeneralFamily Khbjzwkm29/31/24 Cindy Collado NP [address] [place] [address] Nurse PractitionerFamily Medicine10/03/23 Aime Clark DO [address] [place] [address] Oqqihbpjbacoxr64/21/24 Nakul Zazueta DO [address] [address] Referring RbacvokmiKqmvsnyla01/28/24 Ynes Snyder, SANDRA [address] [address] Nurse TtuifstzsvyeJdzzteqml63/28/24 Jameson Mcleod NP [address] [address] Nurse FiekawcwvwjfLjwtauptn30/28/24 Milton Piña MA Family Xwqykrvs95/10/24Team MemberRelationshipSpecialtyStart DateEnd Date Shaikh Day MD [address] [place] [address] PCP - [facility]10/13/23 Gerry Godwin MD [address] [place] [address] PCP - GeneralFamily Bijmnvhp60/31/24 Cindy Collado NP [address] [place] [address] Nurse PractitionerFamily Medicine10/03/23 Aime Clark DO [address] [place] [address] Rayettuxkdnnpf81/21/24 Nakul Zazueta DO [address] [place] [address] Referring EzjrbqogcWjizekijv91/28/24 Ynes Snyder, SANDRA [address] [address] Nurse HazkymuvwjehAiexcgyzj84/28/24 Jameson Mcleod NP [address] [address] [place] [address] Nurse YlaagoeiigwuIdrxbkfow64/28/24 Milton Piña MA [facility]01/21/24Team MemberRelationshipSpecialtyStart DateEnd Date Gerry Godwin MD [address] [place] [address] PCP - GeneralFamily Medicine10/03/23 Cindy Collado NP [address] [place] [address] Nurse PractitionerFamily Medicine10/03/23Team MemberRelationshipSpecialtyStart DateEnd Date Gerry Godwin MD [address] [place] [address] PCP - GeneralFamily Medicine10/03/23 Cindy Collado NP [address] [place] [address] Nurse PractitionerFamily Medicine10/03/23Team MemberRelationshipSpecialtyStart DateEnd Date Gerry Godwin MD [address] [place] [address] PCP - GeneralFamily Medicine10/03/23 Cindy Collado NP [address] [place] [address] Nurse PractitionerFaazly Medicine10/03/23 Team Status: Inactive Member Role Status Dates Shaikh Barb MD Primary Care Provider Active Start: February 20, 2024 End: February 20, 2024Mattbarbara Aftab Andre Juarez ProviderActiveStart: February 20, 2024 End: February 20, 2024Team MemberRelationshipSpecialtyStart DateEnd Date Shaikh Day MD [address] [place] [address] PCP - [address] [place]10/13/23 Gerry Godwin MD [address] [place] [address] PCP - GeneralFamily Jmwdakyi81/31/24 Cindy Collado NP [address] [place] [address] Nurse PractitionerFab[facility] Medicine10/03/23 Aime Clark DO [address] [place] [address] Ispcwepfewpqbb56/21/24 Nakul Zazueta DO [address] [address] Referring BsghnladoNzmcvdnra05/28/24 Ynes Snyder NP [address] [address] Nurse XiflrzxltnrlJqeqgwexl31/28/24 Jameson Mcleod NP [address] [address] Nurse UvvphgbsnwtmDctmnzzdb37/28/24 Milton Piña MA Family Umqiafeg37/10/24Team MemberRelationshipSpecialtyStart DateEnd Date Gerry Godwin MD [address] [facility] [address] PCP - GeneralFamily Medicine04/07/18Team MemberRelationshipSpecialtyStart DateEnd Date Gerry Godwin MD [address] [facility] [address] PCP - GeneralFamily Medicine04/07/18Team MemberRelationshipSpecialtyStart DateEnd Date Gerry Godwin MD [address] [facility] [place] [address] PCP - GeneralFamily Medicine04/07/18Team MemberRelationshipSpecialtyStart DateEnd Date Gerry Godwin MD [address] [facility] [place] [address] PCP - GeneralFamily Medicine04/07/18Team MemberRelationshipSpecialtyStart DateEnd Date Gerry Godwin MD [address] [facility] [place] [address] PCP - GeneralFamily Medicine04/07/18Team MemberRelationshipSpecialtyStart DateEnd Date Gerry Godwin MD [address] [facility] [address] PCP - GeneralFamily Medicine04/07/18Team MemberRelationshipSpecialtyStart DateEnd Date Gerry Godwin MD [address] [place] [address] PCP - Generalmily Medicine04/07/18Team MemberRelationshipSpecialtyStart DateEnd Date Gerry Godwin MD [address] [facility] [place] [address] PCP - Generalmily Medicine04/07/18Team MemberRelationshipSpecialtyStart DateEnd Date Gerry Godwin MD [address] [place] [address] PCP - GeneralFamily Zxcydvdh86/31/24 Cindy Collado NP [address] [place] [address] PCP - [address] [place]03/14/24 Cindy Collado NP [address] [place] [address] Nurse PractitionerFamily Medicine10/03/23 Aime Clark DO [address] [place] [address] Oyuslifoexztdp48/21/24 Nakul Zazueta DO [address] [place] [address] Referring BkhkpnpezTejnobhcc73/28/24 Ynes Snyder NP [address] [address] Nurse QplsvfajadpdEaqfatujq38/28/24 Jameson Mcleod NP [address] [address] Nurse NdgphlmueudyEigihopli21/28/24 Milton Piña MA Family Valtfddw31/10/24Team MemberRelationshipSpecialtyStart DateEnd Date Gerry Godwin MD [address] [place] [address] PCP - Generalmily Sbmrliuu21/31/24 Cindy Collado NP [address] [place] [address] PCP - [facility]03/14/24 Cindy Collado NP [address] [place] [address] Nurse PractitionerFamily Medicine10/03/23 Aime Clark DO [address] [place] [address] Rstcmlltfhziix33/21/24 Nakul Zazueta DO [address] [address] [place] [address] Referring CxmzsduvcBttjrbvdd20/28/24 Ynes Snyder NP [address] [address] Nurse OzyvtwhnsfdaUdjjcqlnn47/28/24 Jameson Mcleod, SANDRA [address] [address] Nurse CunnoqgcwbeaLccexwzhq85/28/24 Milton Piña MA Family Sytwygsn71/10/24Team MemberRelationshipSpecialtyStart DateEnd Date Gerry Godwin MD [address] [place] [address] PCP - GeneralFamily Rwzhqikz71/31/24 Gerry Godwin MD [address] [place] [address] PCP - [facility]04/11/24 Cindy Collado NP [address] [place] [address] Nurse PractitionerFamily Medicine10/03/23 Aime Clark DO [address] [facility] [place] [address] Slllshygzngzeg52/21/24 Nakul Zazueta DO [address] [address] Referring AltnpmlwfVkbxvrkid23/28/24 Ynes Snyder NP [address] [address] Nurse FbgeioujxgxlEdavricyt63/28/24 Jameson Mcleod, SANDRA [address] [address] Nurse JvlrxskepbyhAqcnmgsou06/28/24 Milton Piña MA [facility]01/21/24Team MemberRelationshipSpecialtyStart DateEnd Date Gerry Godwin MD [address] [place] [address] PCP - GeneralFamily Wmgglfff71/31/24 Gerry Godwin MD [address] [place] [address] PCP - [facility]04/11/24 Cindy Collado NP [address] [place] [address] Nurse PractitionerFamily Medicine10/03/23 Aime Clark DO [address] [place] [address] Ccmeroqjqvfugw81/21/24 Nakul Zazueta DO [address] [address] Referring UtfhqlxpdMipnultyy28/28/24 Ynes Snyder, SANDRA [address] [address] Nurse BnaaikyxscftFocbainfj66/28/24 Jameson Mcleod NP [address] [address] Nurse GfokippyigizEeuolmank96/28/24 Milton Piña MA [facility]01/21/24Team MemberRelationshipSpecialtyStart DateEnd Date Gerry Godwin MD [address] [place] [address] PCP - [facility]Fab[facility] Dnkhbioh89/31/24 Gerry Godwin MD [address] [place] [address] PCP - [place]04/11/24 Cindy Collado NP [address] [place] [address] Nurse PractitionerFaboston [facility] Medicine10/03/23 Aime Clark DO [address] [facility] [place] [address] Ptquhtyuhexdam88/21/24 Nakul Zazueta DO [address] [address] Referring DthqscqwrIjvmiuwfm31/28/24 Ynes Snyder NP [address] [address] Nurse PphlhnjvytnwIyaojnujr25/28/24 Jameson Mcleod NP [address] [address] Nurse JoibojouulrfTxspkdorc65/28/24 Milton Piña MA Family Iodadckj32/10/24Team MemberRelationshipSpecialtyStart DateEnd Date Gerry Godwin MD [address] [place] [address] PCP - GeneralFamily Nrldlmzh69/31/24 Gerry Godwin MD [address] [place] [address] PCP - [place]04/11/24 Cindy Collado NP [address] [place] [address] Nurse PractitionerFamily Medicine10/03/23 Aime Clark DO [address] [facility] [place] [address] Ggejihklfzlnaf19/21/24 Nakul Zazueta DO [address] [address] Referring JxqaweolfAodytpunw82/28/24 Ynes Snyder NP [address] [address] Nurse OpkbvmrusscqYdfpfbzpk53/28/24 Jameson Mcleod NP [address] [address] Nurse VihosmdslzsmEriruemvn24/28/24 Milton Piña MA Family Qzhkgpyu04/10/24Team MemberRelationshipSpecialtyStart DateEnd Date Gerry Godwin MD [address] [place] [address] PCP - GeneralFamily Enzmvkvl29/31/24 Gerry Godwin MD [address] [place] [address] PCP - Donald ZARCO04/11/24 Cindy Collado, DYE WEIGHER HELPER [address] [place] [address] Nurse PractitionerFamily Medicine10/03/23 Aime Clark DO [address] [place] [address] Evvbbfdwjnplgk73/21/24 Nakul Zazueta DO [address] [address] Referring RbmdincoyLjtcjcpab26/28/24 Ynes Snyder, SANDRA [address] [address] Nurse IjwyudkbptgzFhfpwsxls76/28/24 Jameson Mcleod NP [address] [address] Nurse ZvdhuyqmzbpvChynsnsgv57/28/24 Milton Piña MA Family Pycwagfe40/10/24Team MemberRelationshipSpecialtyStart DateEnd Date Gerry Godwin MD [address] [place] [address] PCP - GeneralFamily Ruoenzyc27/31/24 Gerry Godwin MD [address] [place] [address] PCP - Donald ZARCO04/11/24 Cindy Collado, DYE WEIGHER HELPER [address] [place] [address] Nurse PractitionerFamily Medicine10/03/23 Sharaelian Aime Gamble DO [address] [facility] [place] [address] Tsjxxxsyvlwpjb02/21/24 Nakul Zazueta DO [address] [address] Referring FgmamhxqoPejpfmqpk06/28/24 Ynes Snyder NP [address] [address] Nurse VaocagypysejTuymtlehu65/28/24 Jameson Mcleod NP [address] [address] Nurse UlmzectfatrhTeoeyuobi70/28/24 Milton Piña MA Family Vysbkmft42/10/24Team MemberRelationshipSpecialtyStart DateEnd Date Gerry Godwin MD [address] [place] [address] PCP - GeneralFamily Ftninpzx45/31/24 Gerry Godwin MD [address] [place] [address] PCP - [address] [place]04/11/24 Cindy Collado, DYE WEIGHER HELPER [address] [place] [address] Nurse PractitionerFamily Medicine10/03/23 Aime Clark DO [address] [place] [address] Tpqpmabmdtwpoy33/21/24 Nakul Zazueta DO [address] [address] Referring JqoflzvyuFhsesdxye54/28/24 Ynes Snyder NP [address] [place] [address] Nurse XptcymmbowbxAoromswmh15/28/24 Jameson Mcleod NP [address] [place] [address] Nurse TwoieozooyzbNkebwtsnu87/28/24 Milton Piña MA Family Xvwfvitt18/10/24Team MemberRelationshipSpecialtyStart DateEnd Date Gerry Godwin MD [address] [place] [address] PCP - GeneralFamily Oifzotwp34/31/24 Cindy Collado NP [address] [place] [address] Nurse PractitionerFamily Medicine10/03/23 Aime Clark DO [address] [place] [address] Incoasntmjnloh87/21/24 Nakul Zazueta DO [address] [address] Referring QpkgnvjmyNsoethbap22/28/24 Ynes Snyder, SANDRA [address] [place] [address] Nurse ByjpifbsnvifGgiaxlsqa20/28/24 Jameson Mcleod, SANDRA [address] [place] [address] Nurse JtfqijeytaryGwrljnjih46/28/24 Milton Piña MA [facility] Mvcchxke29/10/24Team MemberRelationshipSpecialtyStart DateEnd Date Gerry Godwin MD [address] [place] [address] PCP - GeneralFamily Rfmlpqdi92/31/24 Cindy Collado NP [address] [place] [address] Nurse PractitionerFamily Medicine10/03/23 Aime Clark DO [address] [place] [address] Xelprdcbumohfa99/21/24 Nakul Zazueta DO [address] [place] [address] Referring VziqzcudmHrfjjchhn44/28/24 Ynes Snyder, SANDRA [address] [place] [address] Nurse WkknydixdmkaJjcrwkejr93/28/24 Jameson Mcleod, SANDRA [address] [place] [address] Nurse IstiayzzewdzXnswhziyd29/28/24 Milton Piña MA [facility]01/21/24Team MemberRelationshipSpecialtyStart DateEnd Date Gerry Godwin MD [address] [place] [address] PCP - GeneralFamily Shvtlxko15/31/24 Cindy Collado NP [address] [place] [address] Nurse PractitionerFami Medicine10/03/23 Aime Clark DO [address] [facility] [place] [address] Nyhlhintsbbdfg38/21/24 Nakul Zazueta DO [address] [address] Referring BlroxztlcMmubbqduf86/28/24 Ynes Snyder NP [address] [address] Nurse BjohhlrxsjanAwhubstrs00/28/24 Jameson Mcleod NP [address] [address] Nurse AjcyfgqrwbliXleewrhto35/28/24 Milton Piña MA [facility]01/21/24Team MemberRelationshipSpecialtyStart DateEnd Date Gerry Godwin MD [address] [place] [address] PCP - GeneralFamily Zdkvudkd96/31/24 Cindy Collado, SANDRA [address] [place] [address] Nurse PractitionerFamily Medicine10/03/23 Aime Clark DO [address] [facility] [place] [address] Btfuxzpjtcczcd45/21/24 Nakul Zazueta DO [address] [address] Referring MfxilpvotXlhpmfwoj70/28/24 Ynes Snyder NP [address] [address] Nurse QvfktkteourfRqkwgbwdn31/28/24 Jameson Mcleod NP [address] [address] Nurse QmcbayjydiheCfmzibcrr56/28/24 Milton Piña MA Family Bbfhelsg61/10/24Team MemberRelationshipSpecialtyStart DateEnd Date Gerry Godwin MD [address] [place] [address] PCP - GeneralFamily Qpeewxnw93/31/24 Gerry Godwin MD [address] [place] [address] PCP - [address] [place]04/11/24 Cindy Collado, SANDRA [address] [place] [address] Nurse PractitionerFamily Medicine10/03/23 Aime Clark, DO [address] [place] [address] Aldiyonqeddksd77/21/24 Nakul Zazueta DO [address] [address] Referring WouiyqxelUucpiqgjd26/28/24 Ynes Snyder, SANDRA [address] [address] Nurse IipqvokjbsdaLpuxkvotz91/28/24 Jameson Mcleod NP [address] [address] Nurse SeewbpcpbpwvNcxyuryop49/28/24 Milton Piña, [place] [address] [place] [address] Family Ubizimzx11/10/24Team MemberRelationshipSpecialtyStart DateEnd Date Gerry Godwin MD [address] [place] [phone] PCP - GeneralFamily Rjjayohq92/31/24 Gerry Godwin MD [address] [place] [id number] PCP - [place]04/11/24 Cindy Collado NP [address] [place] [phone] Nurse PractitionerFamily Medicine10/03/23 Aime Clark, DO [address] [place] [address] Mgfthdmfnboucp69/21/24 Nakul Zazueta DO [address] [phone] Referring XltakjkzaEodzintar15/28/24 Ynes Snyder, SANDRA [address] [phone] Nurse ZkqgyclkpxwfKhpimjxxg61/28/24 Jameson Mcleod NP [address] [address] Nurse KgplsgtjcfphCoryslpiz92/28/24 [place]ña, [place] [address] [place] [address] Family Ncgsokuf95/10/24Team MemberRelationshipSpecialtyStart DateEnd Date Gerry Godwin MD [address] [place] [address] PCP - GeneralFamily Qgvzhnhd67/31/24 Gerry Godwin MD [address] [place] [address] PCP - [place]04/11/24 Cindy Collado NP [address] [place] [address] Nurse PractitionerFamily Medicine10/03/23 Aime Clark, DO [address] [place] [address] Tfcjikbljdwccj13/21/24 Nakul Zazueta DO [address] [address] Referring AjxlhoqjjFdxfwzxyn01/28/24 Ynes Snyder, SANDRA [address] [address] Nurse HfkqbfihxithSpsnfxhmy99/28/24 Jameson Mcleod NP [address] [address] Nurse JodpdxqksdcqDxiwirvra25/28/24 [place]ña, [place] [address] [place] [address] Family Jjxgqadx64/10/24Team MemberRelationshipSpecialtyStart DateEnd Date Gerry Godwin MD [address] [place] [address] PCP - GeneralFamily Sktobiim92/31/24 Gerry Godwin MD [address] [place] [address] PCP - [place]04/11/24 Cindy Collado NP [address] [place] [address] Nurse PractitionerFamily Medicine10/03/23 Aime Clark DO [address] [place] [address] Hmeqtyxxnopbyp43/21/24 Nakul Zazueta DO [address] [address] Referring LypsbuslkRlwybrkme17/28/24 Ynes Snyder, SANDRA [address] [address] Nurse QkwvumarmyltBcyyifpik82/28/24 Jameson Mcleod, SANDRA [address] [address] Nurse WlqsxltrzureVxnvfkdvt38/28/24 [place]ña, [place] [address] [place] [address] Family Kyyqmfsp93/10/24Team MemberRelationshipSpecialtyStart DateEnd Date Gerry Godwin MD [address] [place] [address] PCP - GeneralFamily Zqfcfjgp87/31/24 Gerry Godwin MD [address] [place] [address] PCP - [place]04/11/24 Cindy Collado NP [address] [place] [address] Nurse PractitionerFamily Medicine10/03/23 Aime Clark DO [address] [place] [address] Zodqecedylyffw88/21/24 Nakul Zazueta DO [address] [address] Referring SukmyhixiPjawexmdy96/28/24 Ynes Snyder NP [address] [address] Nurse QkgpaqnkiejrVkqpntcdh08/28/24 Jameson Mcleod NP [address] [place] [address] Nurse FvdayxqjopniFuyrdhpki19/28/24 [place]ña, [place] [address] [place] [address] Family Tgdfjqhe80/10/24 Team Status: Active Member Role Status Dates Cindy Collado Primary Care Provider Active Team Status: Inactive Member Role Status Dates Jameson Mcleod APRN-VEGETABLE FARMER-Pedro Attending Provider Active Start: August 13, 2024 End: August 13, 2024[facility] Care ProviderActiveStart: August 13, 2024 End: August 13, 2024Team MemberRelationshipSpecialtyStart DateEnd Date Gerry Godwin MD [address] [place] [address] PCP - GeneralFamily Kkojjzpp17/31/24 Gerry Godwin MD [address] [place] [address] PCP - [address] [place]04/11/24 Cindy Collado NP [address] [place] [place] [address] Nurse PractitionerFamily Medicine10/03/23 Aime Clark, DO [address] [place] [address] Nzqwystfilenms06/21/24 Nakul Zazueta DO [address] [address] Referring XgbjixlteMtveflvvg66/28/24 Ynes Snyder NP [address] [address] Nurse EqabkxnbjbrgGzcmztaxx03/28/24 Jameson Mcleod NP [address] [address] Nurse OdruepplonzjWtnxfdvjz14/28/24 [place]ña, [place] [address] [place] [place] [address] Family Oebirldh46/10/24Team MemberRelationshipSpecialtyStart DateEnd Date Gerry Godwin MD [address] [place] [address] PCP - GeneralFamily Hgyontnp89/31/24 Gerry Godwin MD [address] [place] [address] PCP - [address] [place]04/11/24 Cindy Collado NP [address] [place] [address] Nurse PractitionerFamily Medicine10/03/23 Aime Clark DO [address] [place] [address] Vdlpjcroqqaxak87/21/24 Nakul Zazueta DO [address] [address] Referring JisjtjnelLixtvscmz54/28/24 Ynes Snyder, SANDRA [address] [address] Nurse HgdakzxnzwucNpnazkgkh31/28/24 Jameson Mcleod NP [address] [address] Nurse JaeeojvyjskmZjyupdtlb49/28/24 [place] Piña, [place] [address] [place] [address] Family Rbsppufz05/10/24Team MemberRelationshipSpecialtyStart DateEnd Date Gerry Godwin MD [address] [place] [address] PCP - GeneralFamily Fhbllrvi48/31/24 Gerry Godwin MD [address] [place] [address] PCP - [place]04/11/24 Cindy Collado NP [address] [place] [address] Nurse PractitionerFamily Medicine10/03/23 Aime Clark DO [address] [place] [address] Vwgjgnlljeyatp27/21/24 Nakul Zazueta DO [address] [address] Referring XwssuxwgxJqlennpig91/28/24 Ynes Snyder, SANDRA [address] [address] Nurse PizecugznrsvYdlwpkyoz74/28/24 Jameson Mcleod NP [address] [address] Nurse TgcxrrjjcgyiWzklnusky40/28/24 Milton Piña, HAROLDO [address] [place] [address] Family Fahhuflp42/10/24Team MemberRelationshipSpecialtyStart DateEnd Date Gerry Godwin MD [address] [place] [address] PCP - GeneralFamily Nonhwvrd07/31/24 Gerry Godwin MD [address] [place] [address] PCP - [address] [place]04/11/24 Cindy Collado NP [address] [place] [address] Nurse PractitionerFamily Medicine10/03/23 Aime Clark DO [address] [place] [place] [address] Zdezsfrqzuwvvb45/21/24 Nakul Zazueta DO [address] [address] Referring WcbnnusqeHaorwvmuv31/28/24 Ynes Snyder, SANDRA [address] [address] Nurse VoyrivhbgruvFumcgtvvk93/28/24 Jameson Mcleod, SANDRA [address] [address] Nurse DvqqfaxygjehYurvshftb40/28/24 [place]ña, [place] [address] [place] [place] [address] Family Vsnzrxsn64/10/24Team MemberRelationshipSpecialtyStart DateEnd Date Gerry oGdwin MD [address] [place] [address] PCP - GeneralFamily Qxoxzaah29/31/24 Gerry Godwin MD [address] [place] [address] PCP - [address] [place]04/11/24 Cindy Collado NP [address] [place] [place] [address] Nurse PractitionerFamily Medicine10/03/23 Aime Clark DO [address] [place] [address] Fszcyvddazvidb57/21/24 Nakul Zazueta DO [address] [address] Referring OakiazqnhWinwlaxuw52/28/24 Ynes Snyder NP [address] [place] [address] Nurse ErdfnmbjdulqJmxjvffjx62/28/24 Jameson Mcleod NP [address] [address] Nurse UgbyseexyrslXwqebbiiv93/28/24 [place], [place] [address] [place] [address] Family Iypejoad93/10/24 Team Status: Active Member Role Status Dates Cindy Collado DYE WEIGHER HELPER-C Primary Care Provider Active Team Status: Active Member Role Status Dates Cindy Collado DYE WEIGHER HELPER-C Primary Care Provider Active Start: November 24, 2024 Cindy Collado DYE WEIGHER HELPER-CAttending ProviderActiveStart: November 24, 2024 Team Status: Inactive Member Role Status Dates Cindy Collado DYE WEIGHER HELPER-C Primary Care Provider Active Start: November 26, 2024 End: November 26, 2024Cindy Collado DYE WEIGHER HELPER-CAttending ProviderActiveStart: November 26, 2024 End: November 26, 2024 Team Status: Active Member Role/Relationship Status Dates Cindy Collado DYE WEIGHER HELPER-C Primary Care Provider Active Team Status: Active Member Role/Relationship Status Dates Cindy Collado DYE WEIGHER HELPER-C Primary Care Provider Active Start: November 24, 2024 Cindy Collado DYE WEIGHER HELPER-CAttending ProviderActiveStart: November 24, 2024 Team Status: Inactive Member Role/Relationship Status Dates Cindy Collado DYE WEIGHER HELPER-C Primary Care Provider Active Start: November 26, 2024 End: November 26, 2024Gaby Palmer ProviderActiveStart: November 26, 2024 End: November 26, 2024 Team Status: Inactive Member Role/Relationship Status Dates MOHINDER Palmer Primary Care Provider Active Start: December 03, 2024 End: December 03, 2024EVERETT Dao-CAttending ProviderActive Start: December 03, 2024 End: December 03, 2024 Goals (unrecognized section and content) Goals may [...] BE BASED ON THE PRIMARY CLINICAL RECORDS. [facility] [employer] provides no warranty or guarantee of the accuracy or completeness of information in this document.
[2024-12-04 08:31] LABS: TSH W/ REFLEX FT4 1.295 uIU/mL (0.358-3.740)
[2024-12-04 10:34] LABS: Folate 12.70 ng/mL (8.60-58.90)
[2024-12-05 03:07] LABS: Vitamin B12 150 pg/mL (232-1245)
== END 2024-12-04 07:18 | disposition home or self-care (01) ==
LOC: LAB 07:18
PROVIDERS: PCP Nurse Practitioner; Visit Provider Nurse Practitioner Family
DX: Z79.899 Other long term (current) drug therapy (principal); F09 Unspecified mental disorder due to known physiological condition
CPT/HCPCS: 36415; 82607; 82746; 84443

== ENCOUNTER 2025-01-01 09:39 | Outpatient (OUT) | payer MEDICARE, SELFPAY ==
--- OUTSIDE RECORDS SUMMARY | 2024-12-31 06:14 | XMS_ITS | Continuity of Care Document ---
Author Organization [facility] Address [address] [place] [address] Phone Care Team Providers Care Tank Builder Helper Name Role Phone Aleena Collado CHILD AND YOUTH PROGRAM ASSISTANT-C Primary Care Provider [phone] Aleena Collado CHILD AND YOUTH PROGRAM ASSISTANT-C Attending Provider Jessica Ceballos APRN-PLUG SHAPER HAND-C Attending Provider + Care Teams Patient Care Team Team Status: Active Member Role/Relationship Status Dates Aleena Collado NP-C Primary Care Provider Active Visit Care Team Team Status: Inactive Member Role/Relationship Status Dates Aleena Collado CHILD AND YOUTH PROGRAM ASSISTANT-C Primary Care Provider Active Start: November 26, 2024 End: November 26, 2024ANA PalmerCAttensacha ProviderActiveStart: November 26, 2024 End: November 26, 2024 Visit Care Team Team Status: Inactive Member Role/Relationship Status Dates Aleena Clolado CHILD AND YOUTH PROGRAM ASSISTANT-C Primary Care Provider Active Start: December 03, 2024 End: December 03, 2024EVERETT Dao-CAttending ProviderActive Start: December 03, 2024 End: December 03, 2024 Patient Care Team Team Status: Active Member Role/Relationship Status Dates Aleena Collado CHILD AND YOUTH PROGRAM ASSISTANT-C Primary Care Provider Active Start: December 04, 2024 Jessica Ceballos APRN-FNP-CAttending ProviderActiveStart: December 04, 2024 Visit Care Team Team Status: Active Member Role/Relationship Status Dates MOHINDER Palmer Primary Care Provider Active Start: December 29, 2024 Gaby Palmer ProviderActiveStart: December 29, 2024 Patient Care Team Team Status: Inactive Member Role/Relationship Status Dates MOHINDER Palmer Primary Care Provider Active Start: December 31, 2024 End: December 31, 2024Gaby Palmer ProviderActiveStart: December 31, 2024 End: December 31, 2024 Chief Complaint and Reason for Visit Chief Complaint Admit Date 3M November 26, 2024 9 :05am 3 Month Follow up December 03, 2024 1 1:35am R47.01 December 29, 2024 10:15am medicare wellness December 31, 2024 10:01am Reason for Visit Admit Date Dizziness and [...] 1:35am Aphasia December 03, 2024 1 1:35am Dizziness and giddiness December 31, 2 025 10:01am Encounter for screening mamm ogram for malignant neoplasm of breast December 31, 2024 10:01am Encounter for subsequent [facility] wellness visit (AWV) in Medicare patient December 31, 2024 10:01am Essential hypertension December 31 10:01am CRYSTAL (generalized anxiety disorder) Novem hollie 2024 10:01am Migraine with aura and witho ut status migrainosus, not intractable December 31, 2024 10:01am Allergies, Adverse Reactions, Alerts Allergen Type Severity Reaction Last Updated Verified Status Penicillins Allergy Unknown Rash December 03, 2024 10:30am Y es Active Social History Smoking Status Status Start Date End Date Date of Observa tion Ex-smoker (finding) April 12, 2023 1:09pm Observation Status Observation Response Date of Response Legal Sex Female (finding) Sex Assigned At BirthFemaleApril 1950 Family History Relationship Condition Age at Onset Recorded Date/T darrell father Malignant neoplasm of prostate Unknown Malignant neoplasm of boneUnknownType 2 diabetes mellitusUnknownDeceasedUnknown motherMalignant neoplasm of brainUnknownMalignant neoplasm of breastUnknown DeceasedUnknownsonDown syndromeUnknowndaughterMalignant neoplasm of lungUnknown brotherMyocardial infarctionUnknownType 2 diabetes mellitusUnknownfamily member DeceasedUnknownsisterDeceasedUnknownFamily history of lung cancerUnknown Malignant neoplasmUnknown Problems Active Problems Problem Diagnosis/Recorded Date Onset Date Stat us Symptomatic bradycardia November 21, 2021 3:16am Unkn own Active White matter disease November 03, 2024 7:57am Unkno wn Active Primary progressive aphasia August 13, 2024 1:48pm Unkn own Active Ischemic stroke August 13, 2024 1:49pm Unknown Act abbe Aphasia due to acute stroke April 11, 2018 9:49am Unk nown Active Encounter for subsequent [facility] wellness visit (AWV) in Medicare patient November 03, 2024 7:54am Unknown Active Internal carotid artery stent present August 08, 2023 9:32am Unknown Active Major depressive disorder November 23, 2024 11:09am U nknown Active Lower extremity edema February 20, 2024 11:05am Unknow n Active CRYSTAL (generalized anxiety disorder) November 03 7:48am Unknown Active Screen for colon cancer December 16, 2018 7:54am Unkn own Active Migraine with aura and witho ut status migrainosus, not intractable November 03, 2024 7:54am Unknown Act abbe Encounter for screening mamm ogram for malignant neoplasm of breast November 03, 2024 7:48am Unknown Act abbe Carotid stenosis March 23, 2020 11:54am Unknown Active Impaired mobility and activi ties of daily living April 11, 2018 9:49am Unknown Active Muscle spasm November 03, 2024 7:55am Unknown Active Dysarthria November 03, 2024 7:47am Unknown Active Status post placement of imp lantable loop recorder April 11, 2018 10:10am Unknown Active Coronary atherosclerosis November 03, 2024 7:47am U nknown Active Heart failure, unspecified November 03, 2024 7:48am Unknown Active Vitamin B12 deficiency December 17, 2024 4:32pm Unkno wn Active Overflow incontinence of urine November 23, 2024 11:1 2am Unknown Active Dystonia April 11, 2018 9:53am Unknown Activ e Anemia April 11, 2018 9:53am Unknown Activ e Psychophysiological insomnia November 03, 2024 7:56 am Unknown Active Gait instability August 13, 2024 1:47pm Unknown Ac tive Ataxia August 13, 2024 1:47pm Unknown Active Confusion October 26, 2020 5:23pm Unknown Active Peripheral vertigo involving left ear November 03, 2024 7:56am Unknown Active Dysphagia April 11, 2018 9:57am Unknown Activ e Dizziness and giddiness November 03, 2024 7:47am Un known Active Incontinence November 23, 2024 11:08am Unknown A ctive Mixed hyperlipidemia November 03, 2024 7:55am Unkno wn Active Chronic UTI November 23, 2024 11:07am Unknown A ctive Osteoarthritis November 23, 2024 11:12am Unknown Active On potassium wasting diuretic therapy November 02, 2024 1:01pm Unknown Active Peripheral vascular disease November 03, 2024 7:55a m Unknown Active Essential hypertension November 26, 2024 6:17am Unkno wn Active Episode of recurrent major d epressive disorder November 03, 2024 7:48am Unknown Active DVT prophylaxis April 11, 2018 9:49am Unknown Ac tive PAD (peripheral artery disease) February 20, 2024 11:0 5am Unknown Active AMS (altered mental status) November 21, 2021 3:16am Unknown Active Acute ischemic left MCA stroke April 11, 2018 9:49am Unknown Active Urinary incontinence without sensory awareness November 03, 2024 7:49am Unknown Active H/O traumatic brain injury April 11, 2018 9:58am Unkn own Active Oropharyngeal dysphagia November 03, 2024 7:55am Un known Active Vitamin D deficiency December 31, 2024 6:09am Unknow n Active Iron deficiency November 03, 2024 7:49am Unknown Active Medications Medication Status Dose Units Route Directions Qty Days Refills S tart Date Stop Date End Date Reason(s) Instructions Adherence Potassium Chloride 10 mEq capsule, extended release Disconti nued 10 MEQ PO Daily 90 0September 2024 1:01pmOctober 2024 5:45amOn potassium wasting diuretic therapy Other fci (current) drug therapyPotassium Chloride 10 mEq capsule, extended jenhhglJmtzlcqomlzc42KTMCPSbooj832Gfadjsn 2024 5:44amOctober 2024 10:48amOn potassium wasting diuretic therapy Other fci (current) drug therapyCyanocobalamin (Vitamin B-12) 1,000 mcg yhjrorZvhfzs3552XCINCJtsnx47456Cfllszkp 2024 12:00amCobalamin deficiency Deficiency of other specified B group vitaminsUnknownClonazepam 0.5 mg tablet Active0.5MGPOTwice daily as needed for hbwbcnl82771Ztgrbowf 2024 9:41am Generalized anxiety disorder Generalized anxiety disorderUnknownIbuprofen 800 mg BjdvsjGhjgpalxrhfq469BVVK Three times dailyFebruary 2018 12:[facility] 2018 6:51amClonazepam 0.5 mg tabletDiscontinued0.5MGPOTwice dailyFebruary 2018 12:[facility] 2018 6:51amBaclofen 20 mg zyalxuHajfsxlrhuaj87YOSYSnzzf times dailyFebruary 2018 12:00amSepty[facility] 2024 11:11ammuscle spamsMetoprolol Succinate 25 mg Tablet Extended Release 24 GrOafnxmusjwnz25MDGHOtarpWyiwwieo 2018 12:00[facility] 2018 6:54amLisinopril-Hydrochlorothiazide 10-12.5 mg tablet Sbuvloiujlff0IMVVFEmzhmWohwvakz 2018 12:[facility] 2018 6:54amNaproxen 500 mg UtmauvAzndzdrsmsig936YKZBIzbot daily as needed for PainFebruary 2018 12:[facility] 2018 6:51amBaclofen 20 mg tryazeUpgsxf14ZRBXKqhdv times daily as needed for muscle spamsSeptember 2024 11:06amUnknownRosuvastatin (Crestor) 10 mg RsokirLruljguqrxor30GJFKHqdhoedMcbtdmyt 2018 12:00amMarch 2018 6:54amAspirin 81 mg Tablet,EjunhaptZqmjminvoaen15CTJCXgzwrYydvikxe 2018 12:00amNovember 2018 9:24amAspirin 81 mg Tablet,Chewable Cvpdoxrwbcwa92HLZPJjfml93Dnkbf 2018 12:00amFebruary 2019 4:28pm Acetaminophen 325 mg MrmsbjCrikoepsjpuo599LNOTM3A as needed for Pxbp73Hlfgp 2018 12:00amFebruary 2019 4:28pmDocusate Sodium 100 mg CapsuleDiscontinued 100MGPOTwice daily as needed for Qxsvegnpmktc83371Cmkhb 2018 12:00am December 12, 2018 9:29amFerrous Sulfate 324 mg (65 mg iron) Tablet,Delayed Release (Dr/Ec)Fdlfbojxijfh197STDXBkpqy bljqy05585Azhrs 2018 12:00am December 12, 2018 9:28amMetoprolol Succinate 25 mg Tablet Extended Release 24 YgLwqatanjpocg33XQVBOdiza72818Tlxih 2018 6:54amFebruary 2019 4:33pm Lisinopril-Hydrochlorothiazide 10-12.5 mg hwqmlrUcwyigzeqizv4OQFNWFzoih53414 April 18, 2018 6:54amFebruary 2019 4:28pmRosuvastatin (Crestor) 10 mg UkpuswPrlqtbpknqhr56JWZAMeimois24873Cilna 2018 6:54amApril 2018 11:00pmApril 2018 11:02pmAcetaminophen 325 mg ssrcrxThahfuduruxt722 - 650MG PODaily as needed for HeadacheFebruary 2019 4:28pmFebruary 2023 9:46amAspirin 81 mg tablet,rjwfcqwxDlwaxgkruvvy92DSZOSikzh morningFebruary 2019 4:28pmFebruary 2020 12:03pmcvaLisinopril-Hydrochlorothiazide 10-12.5 mg hczvikQggqucilyudo8TQHNSWxour morningFebruary 2019 4:28pmFebruary 2023 9:45amhtnMetoprolol Succinate 25 mg tablet extended release 24 hr Wafrbjtrywdi13FYYVKbnzk morningbruary 2019 4:33pmOctober 2021 12:21pmhtnTrazodone 100 mg tabletDiscontinuedFebruary 2019 12:00amFebruary 2019 5:06pmQuetiapine 50 mg mjdbvyQlcaem90GLPUXlwrk at bedtimebruary 2019 12:00aminsomniaUnknownFerrous Sulfate (Ferosul) 325 mg (65 mg iron) gehptnDeffzj693UVXWDoevlUrgprel 2021 11:00pmUnknownFurosemide 20 mg tablet Swswbqhdlujg38QLME.every other dayOctober 2021 11:00pmSeptember 2024 11:57gt53oa 2 tabsTopiramate 50 mg gewbgyJovuavjfxwmf58ZKIVIigpiEhwaxra 2021 11:00pmOctober 2024 9:03amCephalexin 500 mg bcfolldMcsirzflvqoc088WP POThree times sehji4740Iccejua 2021 11:00pmFebruary 2023 9:46am Cyanocobalamin (Vitamin B-12) (Vitamin B-12) 2,000 mcg Tablet Extended Release Xxgnqwgxpnyt1623EKAPYGmzeo07Mffrqaf 2021 3:44pmFebruary 2023 9:46am Furosemide 20 mg jwmkxyKnkdra81SUXZIvjnuPjcioupts 2024 11:09amUnknown Clonazepam 0.5 mg TabletDiscontinued0.5MGPOTwice dailyOctober 2018 11:00pm November 08, 2024 11:11amClopidogrel (Plavix) 75 mg SpsjkoTqsrtzfpykpd27LJNR Every morningOctober 2018 11:00pmFebruary 2023 9:46amCVA Hydrochlorothiazide 12.5 mg ZhubgvHzyorropvjaj74.5MGPOEvery morningOctober 2018 11:00pmFebruary 2020 12:05pmhtnFerrous Sulfate 324 mg (65 mg iron) tablet,delayed release (DR/EC)Mllmbiyuwfbj098RGSCSKLCR 2 WEEKSNov2018 9:27amJanuary 2020 12:28pmRosuvastatin (Crestor) 10 mg PkxldvKqhjifdpgiqx30 MGPODaily at bedtimeDecember 11, 2018 11:00pmFebruary 2023 9:45am hyperlipidemiaClonazepam 0.5 mg tabletDiscontinued0.5MGPOTwice daily as needed November 08, 2024 11:06amNovember 2024 9:42amCetirizine (All Day Allergy (Cetirizine)) 10 mg DuuohoDaoixpftsxow90YHHFFvvaaFdisdob 2020 12:00amOctober 2021 10:26amallergy symptomsAspirin 81 mg Tablet,Delayed Release (Dr/Ec)Exyzlymnjkky96LLIORbvjcKlzewmqe 2020 12:00amMarch 2023 8:44amCVA preventionCyanocobalamin (Vitamin B-12) (Vitamin B-12) 2,000 mcg Tablet Extended HplapdwOgzdcdpfstev3705DPKZLEyixvBkhgwtae 2020 12:00am November 22, 2021 3:44pmAspirin 81 mg tablet,gfbysvcwZzymdy05KUXNVrpvrEpbfu 2023 12:00amFreeTextSi tablet Orally Once a day; Note: Source Status: Taking; Provider: Windy Sheikh ( )UnknownPotassium Chloride 10 mEq capsule, extended pkujvvsNnunmqcgzvsw71CYDUEDfvywChispuqy 2023 12:00am November 02, 2024 1:02pmMetoprolol Succinate 25 mg capsule,sprinkle,ER 24hr Burlmphbonqk15AQIANfwleXtivthlp 2023 12:00amSeptember 2024 11:11am FreeTextSi capsule Orally Once a day; Note: Source Status: Taking; Provider: Windy Sheikh ( )Amlodipine 2.5 mg tabletActive2.5MGPODaily April 09, 2023 12:00amFreeTextSi tablet Orally Once a day; Note: Source Status: Taking; Provider: Windy Sheikh ( )UnknownRosuvastatin 20 mg dmhuvsWvnahc22IXJFHlinaStbuhzzo 2023 12:00amFreeTextSi tablet Orally Once a day; Note: Source Status: Taking; Provider: Windy Sheikh ( )UnknownTrospium 60 mg capsule,extended release 83xpKxbzppogrheq60BUPN DailyFebruary 2023 12:00amOctober 2024 10:51ammust be taken on empty stomach at least 1 hour before a meal/food with water onlyClopidogrel (Plavix) 75 mg ahhualSxuyvntzlmiq44OSYLIekpk86123Llfjvlsl 2023 12:00amOctober 2024 9:02amStenosis of carotid artery Occlusion and stenosis of unspecified carotid arteryTrospium 60 mg capsule,extended release 46elKqcnkz79RSEJRuffvBnevppe 2024 10:50ammust be taken on empty stomach at least 1 hour before a meal/food with water onlyUnknown Ascorbic Acid (Vitamin C) 500 mg cpzmajElvkof390ANSHKolvoSjomakmrc 2024 11:00pmUnknownCetirizine 10 mg nnsyfgXmfhdv25MATYRmttt as neededSeptember 2024 11:00pmUnknownMethenamine Hippurate 1 gram mabzccDfjbll0JJSAKyjhs daily November 07, 2024 11:00pmUnknownMetoprolol Succinate 25 mg tablet extended release 24 hrAinnnz04TSJOvzaubPydjwwqoj 2024 11:00pmUnknownEstradiol 0.01 % (0.1 mg/gram) oowhjOwqfth9GMZUQZEAS9 Times a weekSeptember 2024 11:00pm UnknownD-Mannose (Azo D-Mannose) 500 mg capsuleActiveMGPOSeptember 2024 11:00pmUnknownTopiramate 50 mg odnqwdOugzxw45FDVGTuggq at bedtimeOctober 2024 9:03amUnknownSulfamethoxazole-Trimethoprim 800-160 mg tabletDiscontinued1 TABPOTwice kkxlp0079Qlrcd 2023 11:00pmJanuary 2024 10:35am Phenazopyridine (Pyridium) 200 mg dqrdtjAyqnjyhtjers697UXAIIqacu 8 yydcv963Ptcis 2023 11:00pmSeptember 2024 11:10am Immunizations Immunization Event Date Not Given Reason Dose Number [employer] Lot Number Reason(s) Given Vaccine Information Statement (VIS) Detail Administration Location COVID-19 Ad26.COV2.S ([employer] [place]) June 11, 2020 Medical Equipment Device Date Implanted Device Details Orthopaedic fixation plate, non-bioabsorbable, sterile March 31, 2021 ARETHA: ()[id number] Issuing Agency: [facility] Device Id: [id number] bone screw, non-bioabsorbable, non-sterile March 31, 2021UDI: ()[id number] Issuing Agency: [facility] Device Id: [id number] bone screw, non-bioabsorbable, non-sterile March 31, 2021UDI: ()[id number] Issuing Agency: [facility] Device Id: [id number] bone screw, non-bioabsorbable, non-sterile March 31, 2021UDI: ()[id number] Issuing Agency: [facility] Device Id: [id number] bone screw, non-bioabsorbable, non-sterile March 31, 2021UDI: ()[id number] Issuing Agency: [facility] Device Id: [id number] bone screw, non-bioabsorbable, non-sterile March 31, 2021UDI: ()[id number] Issuing Agency: [facility] Device Id: [id number] bone screw, non-bioabsorbable, non-sterile March 31, 2021UDI: ()[id number] Issuing Agency: [facility] Device Id: [id number] bone screw, non-bioabsorbable, non-sterile March 31, 2021UDI: ()[id number] Issuing Agency: [facility] Device Id: [id number]-ojncw carotid artery stentMarch 2023UDI: ()[id number] Issuing Agency: [employer] Device Id: [id number] Expiration Date: 2025-09-10 Lot Number: [id number] patch, animal-derivedFebruary 2020UDI: ()[id number] Issuing Agency: [facility] Device Id: [id number] Expiration Date: 2022-04-15 Lot Number: [id number] Relevant Diagnostic Tests and/or Laboratory Data Laboratory Results Test Collection Date/Time Result Date/Time Result Interpretation Reference Range Result Comment Performing Site Vitamin B12 Level December 04, 2024 6:51am December 04, 2024 6:51am 150 pg/mL Abnormal (applies to non-numeric results) [id number] Performed at: [address] [id number] Director: Diony Kim PhD, Phone: [phone] FolateOct2024 6:51amOctober 2024 6:51am12.70 ng/mL8.60-58.90 Thyroid Stimulating Hormone GenDecember 04, 2024 6:51amOctober 2024 6:51am1.295 u[iU]/mL0.358-3.740 Vital Signs Vital Reading Result Reference Range Collection Date/Time Height 61 [in_i] November 26, 2024 8:85zoVecfas53.56 kgNovember 26, 2024 8:08amBody Temperature 98.3 [degF]97.6-99.0November 26, 2024 8:08amHeart Rate80 /vev03-953Hlfdhbg2024 8:08amRespiratory rate16 /sgs64-06KxirtwzNovember 26, 2024 8:08amOxygen saturation by Pulse rzmhvoxg78 %95-100November 26, 2024 8:08amBP Tsvryebn399 mm[Hg]100-140November 26, 2024 8:08amBP Ivbgzbknc89 mm[Hg]60-100November 26, 2024 8:08amBMI (Body Mass Index)29.0 kg/f2Achjgnc 2024 8:16ybCdruan77 [in_i]December 03, 2024 10:00exFbldch34.94 kgOctephraim [facility] 2024 10:28amHeart Bubp901 /mtc17-452Pbitdud 2024 10:28amRespiratory rate18 /ico86-79Ynjmpha 2024 10:28amOxygen saturation by Pulse vexudgjw65 %95-100Octephraim [facility] 2024 10:28amBP Spjmxogy881 mm[Hg]100-140Octephraim [facility] 2024 10:28amBP Mhhmlufse64 mm[Hg]60-100Octephraim [facility] 2024 10:28amBMI (Body Mass Index)28.7 kg/j5Rabxpsx 2024 10:18wiHnbpes28 [in_i]December 31, 2024 10:29vgVwvhvd14.90 kg December 31, 2024 10:21amBody Ekkcwqgigxt88.5 [degF]97.6-99.0[facility]2024 10:21amHeart Rate73 /zyv43-245Wcfhouzw 20th, 2025 10:21amRespiratory rate18 /gfl06-11Znfpiubo 2024 10:21amOxygen saturation by Pulse % 95-100[facility]2024 10:21amBP Xmitycxy190 mm[Hg]100-140Nov2024 10:21amBP Puatldtfl02 mm[Hg]60-100Nov[facility] 2024 10:21amBMI (Body Mass Index)29.1 kg/w3Kqmcputx2024 10:21am Advance Directives Advance Directive Response Recorded Date/ Time Advance Directives No May 12 3:06pm Insurance Providers Guarantor Ozzie Luna Address [address] [place] [address]Dwckdrx Info.Home Phone: Payer Group Member ID Coverage Type Subscriber Relationship to Subscriber Effective Date Expiration Date Medicare Id: [id number] B Elliott Id: [id number] [address] [place] [address] Home Phone: Email: DECLINED [phone] Encounters Encounter Location(s) Arrival/Admit Date Discharge/Departure Date Discharge/Departure Disposition Provider(s) Departed Physician/ Provider Office Visit -[facility] Family Medicine Thierry November 26, 2024 9:05am November 26, 2024 9:52am Discharged to home care or self care (routine discharge) MOHINDER Palmer Departed Physician/ Provider Office Visit -[facility] Neurology December 03, 2024 11:35am December 03, 2024 12:34pm Discharged to home care or self care (routine discharge) EVI Dao Non-patient / Non-visit -[facility] ctober 2024 7:51am EVERETT Dao-CRegistered [facility] 2024 10:15amMITCH Palmereparted Physician/Provider Office Visit -[facility] Family Medicine [facility] 2024 10:01amNovember 2024 11:13am Discharged to home care or self care (routine discharge)MOHINDER Palmer Recent Diagnosis Onset Date Admit Date Dizziness [...] 03 11:35am Aphasia Unknown December 03 11:35am Dizziness and giddiness Unknown December 31, 2024 10:01am Encounter for screening mamm ogram for malignant neoplasm of breast Unknown December 31, 2024 10:01 am Encounter for subsequent [facility] wellness visit (AWV) in Medicare patient Unknown December 31, 2024 10:01am Essential hypertension Unknown December 31, 2024 10:01am CRYSTAL (generalized anxiety disorder) Unknown December 31, 2024 10:01am Migraine with aura and witho ut status migrainosus, not intractable Unknown December 31, 2024 10:01 am Assessments Diagnosis Onset Date Resolution Status Admit Date Dizziness and giddiness acuteOctober 2024 9:05amEpisode of recurrent major depressive disorder acuteOctober 2024 9:05amEssential hypertensionacuteOctober 2024 9:05amGAD (generalized anxiety disorder)acuteOctober 2024 9:05amMigraine with aura and without status migrainosus, not intractableacuteOctober 2024 9:05amAtaxiachronicOctober 2024 11:35amGait instabilitychronicOctober 2024 11:35amIschemic strokechronicOctober 2024 11:35amAphasiadeleted December 03, 2024 11:35amDizziness and giddinessacuteNov2024 10:01amEncounter for screening mammogram for malignant neoplasm of breastacute December 31, 2024 10:01amEncounter for subsequent annual wellness visit (AWV) in Medicare patientacuteDecember 31, 2024 10:01amEssential hypertensionacute December 31, 2024 10:01amGAD (generalized anxiety disorder)acuteNov2024 10:01amMigraine with aura and without status migrainosus, not intractable acuteNov2024 10:01am Plan of Treatment Author Aleena Collado [facility]Oct[facility] 2024 9:02amPlease check blood pressure daily and record DASH [...] to ataxia klonopin, seroquel Author Jessica Tucker [facility] CampusAuthoredOctober 2024 10:59amThe patient has gait instability which she believes [...] to her symptoms. [facility] and diagnosed with [...] February 2023 and was evaluated at [facility] where she had a CT head, CTA [...] reports having right TCAR procedure via Dr. Juaerz approximately 1 year ago for carotid artery [...] agreeable to the plan. All questions answered. Author Aleena Collado [facility] CampusAuthoredDecember 31, 2024 6:06amPlease check blood pressure daily and record DASH [...] some meds to see if this helps at last visit we cut back on topirimate to 50m/2 tablet daily klonopin, seroquel takes topamax, at last appt we cut back dose(not having migraine headaches, could also be contributing to ataxia) Reviewed Ht/Wt/BMI Recommend eye exams yearly Recommend dental exam: twice a year Balance work/leisure activities exercise is recommended most days of the week (appropriate as chronic conditions allow) follow up yearly and prn Future Tests Future scheduled test information is unavailable Pending Tests Test Name Ordered Date Scheduled Date Comprehensive Metabolic Panel December 31 6:08am MM screening mammo BI w/CADDecember 31, 2024 6:09am Future Visits Future appointment information is unavailable Future Procedures Procedure Name Ordered Date Scheduled Date Vitamin B12 December 03, 2024 11:31am FolateOct2024 11:31amComplete Blood Count Auto DiffDecember 31, 2024 6:08amLipid PanelNov2024 6:08amMagnesiumNov2024 6:08amVitamin D 25 Hydroxy TotalDecember 31, 2024 6:08am Future Medications Future medication information is unavailable Patient Instructions Patient instructions are unavailable
--- OUTSIDE RECORDS SUMMARY | 2025-01-01 09:42 | XMS_ITS | Clinical Summary ---
Author Organization [facility] Address [address] [place] [address] Phone Care Team Providers Care Heat Engineering Teacher Name Role Phone Unavailable Primary Care Provider Unavailabl e Social History Tobacco UseTypesPacks/DayYears UsedDateSmoking Tobacco: Never Assessed CommentsUnknownSex and Gender InformationValueDate RecordedSex Assigned at Not on fileLegal NguUoeown50/25/2022 9:42 AM ESTGender IdentityNot on fileSexual OrientationNot on file Plan of Treatment Not on file
--- OUTSIDE RECORDS SUMMARY | 2025-01-01 09:42 | XMS_ITS | Clinical Summary ---
Author Organization [facility] Address [address] [place] [address] Care Team Providers Care Aerospace Technician Name Role Phone Aleena Collado TALENT DEVELOPMENT COORDINATOR Unavailable [phone] Obed Walls DO Unavailable [phone] Vish Zazueta DO Unavailable Ynes Snyder TALENT DEVELOPMENT COORDINATOR Unavailable [phone] Jessica Ceballos TALENT DEVELOPMENT COORDINATOR Unavailable [phone] Gerry Godwin MD Primary Care Provider Shaikh PEEWEE Day Unavailable [phone] Allergies Active AllergyReactionsCriticalityNoted DateCommentsPenicillin GUnknown 4513UqlipyibmszFaxjExm81/09/2008 Medications MedicationSigDispense QuantityRefillsLast FilledStart DateEnd DateStatus furosemide [...] weeks, then 3 (THREE) times per week bqfivyxdpw49/19/2025Active methenamine hippurate (Hiprex) 1 g tablet Take [...] MG tablet Indications:Atherosclerosis of coronary artery of [place] heart, unspecified vessel or lesion type, unspecified [...] (0.5 mg) before bedtime. 60 tablet 5Active Active Problems ProblemNoted DateDiagnosed DateEpisode of recurrent major depressive disorder 08/11/2024Recurrent UTI02/26/2024Heart failure, kaknhtbaavq09/10/2024 Assessment & Plan (01/21/2024 11:51 AM EST): Current meds: lasix, bblocker, crestor and amlodipine Does follow with [facility] cardiology Does have LE edema noted as well today, no dyspnea Peripheral vascular disease, tuowqvykjzi20/10/2024 Assessment & Plan (01/21/2024 6:37 AM EST): [...] (01/21/2024 6:46 AM EST): Takes baclofen Iron /10/2024 Assessment & Plan (01/21/2024 10:42 AM EST): Labs stable, cont current meds Psychophysiological fsfahdsk28/10/2024 Assessment & Plan (08/11/2024 5:55 PM EDT): [...] bactrim by Fawwad 02/20/23 ecoli White matter acyjqxg5009/11/2023Incontinence without sensory xxnuiqvwa49/31/2024 Oropharyngeal kywdfyyrd56/10/2024 Assessment & Plan (10/22/2023 11:19 AM EDT): [...] drinking thin liquid Medicare annual wellness visit, stoborjdnm86/22/2024 Assessment & Plan (2023 7:16 PM EDT): Patient here for Medicare Wellness. Reviewed medical, surgical and social history. Reviewed medication list. Patient screened for depression, fall risk, cognitive impairment. Patient provided appropriate education on chronic medical conditions, prescription medications. Patient's health related questions and concerns addressed and answered. Colonoscopy 2021- no need for repeat. Encounter for screening mammogram for breast ivkhql4206/03/2023izziness and qdmdiyedr17/03/2024 Assessment & Plan (05/12/2024 7:04 AM EDT): [...] rehab Impaired mobility and activities of daily lmdebg8403/14/2023 Assessment & Plan (05/12/2024 7:05 AM EDT): Continue with home health Assessment & Plan (02/27/2024 4:19 PM EST): Was getting HH, would benefit from continued services Refptuehqi60/10/2024History of cerebrovascular accident (CVA) with residual ywwfqjf9202/20/2023 Assessment & Plan (02/27/2024 4:19 PM EST): Would benefit from continued home health services, she relies heavily on her to help with her ADL's Other asujpcmdymugpx58/10/2024rimary vdnyhnfuibeo96/10/2024 Assessment & Plan (08/11/2024 7:41 AM EDT): [...] with aura and without status migrainosus, not bhaitwibuxx77/10/2024 Assessment & Plan (01/21/2024 6:46 AM EST): [...] culture. Will also refer to Urology. Mixed mhnzqokhpepfhh70/09/2022 Overview (02/20/2023): Last Assessment & Plan: Lipid abnormalities are well controlled, continue crestor Coronary lisftsdnmwbgeyc60/10/2021 Overview (02/20/2023): Images from the original note [...] EDT): Crestor, toprol and ASA Carotid artery deilxybb49/13/2021 Overview (05/15/2023): Images from the original note [...] EDT): Would like a more local neurologist Kvntczbmbmsmqb66/27/2008 Resolved Problems ProblemNoted DateDiagnosed DateResolved DateAcute diffuse otitis externa of both ears/02/2024 Assessment & Plan (2024 12:41 PM EDT): No evidence of TM perforation Will prescribe atb drops, for 10 days, if not better fu in office UTI xqdibwwm34/02/2024 Overview (01/21/2024): Cheri [id number] LOT #[id number] EXP DATE: 02/11/2024 Assessment & Plan (01/21/2024 11:53 AM EST): Treat with macrobid, send for [facility] trax culture Acute cystitis without fzdxfuifi07 Overview (10/30/2023): 10/30/23 klebsiella, tx w bactrim Urinary tract infection woecoqbi81 Assessment & Plan (2023 7:21 PM EDT): [...] needed. Recurrent major depressive disorder, in full nnrlqcxry27/02/2024 Assessment & Plan (01/21/2024 6:39 AM EST): Takes klonopin prn, topirmate, seroquel as well URTI (acute upper respiratory infection) Assessment & Plan (03/06/2023 1:42 PM EST): [...] cough, Azithromycin for antibacterial coverage. PCN allergic. Hzjhfbtotysg12 Overview (02/20/2023): Last Assessment & Plan: Hypertension is elevated, currently will increase lasix to daily and increase potassium, Repeat BMPin 1 week Continue norvasc 2.5 mg Renal function normal Immunizations ImmunizationAdministration DatesNext OyqDFI62Influenza, High Dose Seasonal, Preservative Free12/22/2018Influenza, High-dose Seasonal, Quadrivalent, Preservative Free12/09/2019Influenza, Seasonal, Quadrivalent, Uxwwffuned49/14/2023,01/20/2022,11/26/2020Influenza, Btxbalsvezd36/28/2024, 11/24/2022,01/20/2022,11/26/2020,12/09/2019,12/22/2018,03/25/2001Influenza, seasonal, gckcjduiyu45/12/2002Influenza, trivalent, vvzbdpycxr65/28/2024Novel tsstqqaic-G8P1-22, preservative-free02/17/2009Pneumococcal Conjugate PCV 20 11/24/2022RSV, recombinant, protein [...] other written material from your doctor or pharmacy?Kbrkyouup51/16/2024Humiliation, Afraid, Rape, and Kick questionnaireAnswerDate RecordedWithin the [...] relatives?Once a week01/27/2024How often do you attend methodist or christianity services?Never4Do you belong to any clubs or organizations such as methodist groups, unions, fraternal or athletic groups, or school groups?No01/27/2024How often do you attend meetings of the clubs or organizations you belong to?Never01/27/2024re you , , , , never , or living with a partner?Qzyqxsx0301/27/2024UDIT-C AnswerDate RecordedQ1: How often do you have [...] hard at all01/27/2024 PHQ-2AnswerDate RecordedPatient Health Questionnaire-2 Acgnf628Finmountain point medical center [place] of Occupational Health - Occupational Stress QuestionnaireAnswerDate [...] were you homeless or living in a retirement (including now)?No4CommentsUnknownSex and Gender InformationValueDate RecordedSex Assigned at BirthNot on fileLegal SexFemale 04/25/2022 6:38 PM EDTGender IdentityNot on fileSexual OrientationNot on file Last Filed Vital Signs Vital SignReadingTime TakenCommentsBlood Lgbbiduy373/6607 9:10 AM EDT Eqqap8873 9:10 AM XCQImjhxbhffnq66.6 ??C (97.8 ??F)08/11/2024 9:10 AM EDTRespiratory Vvrp392808/11/2024 9:10 AM EDTOxygen Lyhhpzemij80%08/11/2024 9:10 AM EDTInhaled Oxygen Concentration--Ecjtzo21 kg (158 lb 12.8 oz)08/11/2024 9:10 AM TRTPoagvj595.9 cm (5' 1 )01/21/2024 9:55 AM ESTBody Mass Qdbof1364/10/2024 9:55 AM EST Plan of Treatment Health MaintenanceDue DateLast DoneCommentsCOVID-19 Vaccine ( season) /02/2020Influenza Vaccine (#1)5011/09/2023, 11/09/2023, 11/24/2022, Additional history lvkvhtEpscxjqjgtzVcsslbozpuif39/01/2022, 2Colorectal Cancer ScreeningDiscontinuedPneumococcal Vaccine: 65+ Years Dbzouywfp67/14/2023CT ColonographyDiscontinuedFIT-DNADiscontinuedFITDiscontinued FOBTDiscontinuedSigmoidoscopyDiscontinued Insurance Care Teams Team MemberRelationshipSpecialtyStart DateEnd Date Gerry Godwin MD [address] [place] [phone] [facility] - [facility] Kxxpxeee93/31/24 Shaikh Day MD [address] [place] [phone] PCP - [place] MA10/12/24 Aleena Collado NP [address] [place] [phone] Nurse PractitionerFamily Medicine10/03/23 Obed Walls DO [address] [place], [place] [id number] Iemahbkhnzeyix54/21/24 Vish Zazueta DO [address] [address] [place] [phone] Referring XjmutxsyxTtdjbvkiv24/28/24 Ynes Snyder NP [address] [place] [id number] Nurse LkfioraybyboDheebefdn73/28/24 Jessica Ceballos NP [address] [place] [address] Nurse FwfybtnvqsqyInsebvyqy76/28/24
--- OUTSIDE RECORDS SUMMARY | 2025-01-01 09:42 | XMS_ITS | Clinical Summary ---
Author Organization [facility] Address [address] [facility] [place] [address] Care Team Providers Care Fruit Harvester Machine Operator Name Role Phone Steve Junior MD Unavailable [phone] Source Comments The following information is NOT included in Care Everywhere downloads:Psychiatric notes, ECG results, Cardiac Rehab notes, Pulmonary Function notes, data from SmartForms (includes but not limited toPregnancy data,audiograms, eye exams, pre-surgical evaluation notes, well-child exam data).[facility] Active Problems ProblemNoted DateDiagnosed Date([facility]) RT CONTUSION OF KNEE07/06/2010([facility]) RT TEAR OF MEDIAL CARTILAGE OR MENISCUS OF KNEE, MTLDRZI6007/06/2010([facility]) RT OSTEOARTH NOS-L/LEG07/06/2010 Social History Tobacco UseTypesPacks/DayYears UsedDateSmoking Tobacco: Never Assessed CommentsUnknownSex and Gender InformationValueDate RecordedSex Assigned at Not on fileLegal IjkRwsogr54/04/2012 8:27 AM ESTGender IdentityNot on fileSexual OrientationNot on file Plan of Treatment Health MaintenanceDue DateLast DoneCommentsHepatitis C Ulrhpxmq55/23/1967Tdap Tvbqwyg9806/03/1966Hepatitis A (HAV) Vaccine (optional start 19+ years)06/04/1967 Tetanus (Td or Tdap) Gspemhz9306/04/1967Pneumococcal Vaccine(s) (50+ yrs) (1 of 1 - PCV)1998Shingles (RZV) Vaccine (1 of 2)1998Hepatitis B (HBV) Vaccine (optional start 60+ years)2008one Miezvugbauga59/23/2014RSV vaccine (adult) (1 - 1-dose 75+ series)4COVID-19 Vaccine (2024-26 season)2024Influenza Vaccine (#1)2024Pap SmearDiscontinued Insurance Care Teams Team MemberRelationshipSpecialtyStart DateEnd Date Steve Junior MD [address] [phone] 05/10/10
--- OUTSIDE RECORDS SUMMARY | 2025-01-01 09:42 | XMS_ITS | Clinical Summary ---
Author Organization [facility] Address [facility] [place] [address] Care Team Providers Care Cementer Oil Well Name Role Phone Aneesh Ramirez MD Primary Care Provid er Allergies Active AllergyReactionsCriticalityNoted VlzvDdkpgjzvNylickgcujtNwep06/09/2008 Medications MedicationSigDispense QuantityRefillsLast FilledStart DateEnd DateStatus hydrochlorothiazide [...] needed (for pain.).ctive Active Problems ProblemNoted DateDiagnosed RormEzikfqfiykgk85/12/2010Reflex sympathetic dystrophy of the lower limb04/09/2007Knee joint replacement by other means 04/09/2007Osteoarthrosis, unspecified whether generalized or localized, lower leg04/09/2007Contusion of knee04/09/2007Tear of medial cartilage or meniscus of knee, seeuezg7204/09/2007 Family History Medical HistoryRelationCommentsIschemic Heart DiseaseBrotherMigraine [Other] DaughterCancerFatherBoneIschemic Heart DiseaseFatherbrain tumor [Other]Maternal GrandmotherCancerMotherBreast with metastases to brain?SeizuresOthergrandson and granddaughter with seizuresRelationStatusCommentsBrotherDaughterFatherMaternal GrandmotherMotherOther Social History Tobacco UseTypesPacks/DayYears UsedDateSmoking Tobacco: FormerCigarettes 02/11/1979 - 02/11/1989 Comments:SMOKED 1/2 TO 3/4 P ACK OF CIGARETTES DAILY Alcohol UseStandard Drinks/WeekCommentsNo0 (1 standard drink = 0.6 oz pure alcohol)CommentsNoSex and Gender InformationValueDate RecordedSex Assigned at BirthNot on fileLegal UlqYkpgmw18/02/2012 9:33 AM ESTGender Identity Not on fileSexual OrientationNot on file Last Filed Vital Signs Vital SignReadingTime TakenCommentsBlood Weshbxnb647/60008/10/2011 8:10 AM EDT Qtgwg35392/29/2012 8:10 AM ECXScgymowktsi72.1 ??C (98.7 ??F)07/01/2009 7:00 AM EDTRespiratory Iztm549907/01/2009 7:00 AM EDTOxygen Vbiubxpyqa90%07/01/2009 7:00 AM EDTInhaled Oxygen Concentration--Aotgdh52.2 kg (212 lb)08/10/2011 8:10 AM EDT Yumcfa941.9 cm (5' 1 )08/10/2011 8:10 AM EDTBody Mass Index40.0608/10/2011 8:10 AM EDT Plan of Treatment Health MaintenanceDue DateLast DoneCommentsAnxiety Nrtfbdntg32/23/1967Depression Uewihognr61/23/1967Hepatitis C Breclnogb51/23/1967DTaP,Tdap,Td Vaccine (1 - Tdap)06/04/1967Pneumococcal Vaccine: 50+ (1 of 1 - PCV)1998Shingrix Vaccine (1 of 2)1998Diabetes Nddcvoyuq37/19/, 06/29/2009, 06/22/2009one Density Ddliwbpun47/23/2014RSV Vaccine (1 - 1-dose 75+ series) 4Advance Directive Okjsdqnljl85/01/2025Covid-19 Vaccine ( season)2024Influenza Vaccine (#1)2024 Medical Devices ImplantedTypeAreaManufacturerDevice IdentifierShelf Expiration DateModel / Serial / LotCement Bone Simplex P W/ Tobramycin 1gm - [id number] Implanted:Qty: 5 on 06/28/2009 at [facility] / PuttyHOWMEDICA 01/10/[id number] / / [id number] Restrictor Revision [place] - [id number] Implanted:Qty: 1 on 06/28/2009 at [facility] / [facility] [id number] / / Femur Post Aug Traith 5mm Sz 3 - [id number] Implanted:Qty: 1 on 06/28/2009 at [facility] MEXEICOPMOX66/28/[id number] / [id number] / XSNRRestrictor Cement W/Insertor - [id number] Implanted:Qty: [id number] / / Insert Tri Tib Ps X3 Sz3 11mm - [id number] Implanted:Qty: 1 on 06/28/2009 at [facility]: Bone - Knee [facility] YSFRSMLCNWL85/24/[id number] / / MJAJJAInsert Tri Tib Ps X3 Sz3 13mm - [id number] Implanted:Qty: 1 on 06/28/2009 at [facility]: Bone - Knee [facility] WJHZYOSQJMH20/01/[id number] / / PZG27ODztyiakxoa Femur Comp Rt Sz 3 - [id number] Implanted:Qty: 1 on 06/28/2009 at [facility] PBBBENKOSKF13/28/[id number] / [id number] / XTIXStem Triath Cemented 15x50 - [id number] Implanted:Qty: 1 on 06/28/2009 at [facility] EFVCRUGLJLQ76/15/[id number] / [id number] / S2K86WYlio Triathlon Cement 60p09qc - [id number] Implanted:Qty: 1 on 06/28/2009 at [facility] FNUEJUHCGRV75/28/[id number] / [id number] / S3B74QRxqty Post Aug Traith 5mm Sz 3 - [id number] Implanted:Qty: 1 on 06/28/2009 at [facility] YSOZGZEBLYW56/28/[id number] / [id number] / XTAYFemur Distal Aug Rt 15mm Sz 4 - [id number] Implanted:Qty: 1 on 06/28/2009 at [facility] PQSRKQRYOWV44/03/[id number] / [id number] / WPOCFemur Distal Aug Rt 15mm Sz 4 - [id number] Implanted:Qty: 1 on 06/28/2009 at [facility] KDQNTSBOUVU81/26/[id number] / [id number] / XWDFBaseplate Triathlon Ts Sz3 - [id number] Implanted:Qty: 1 on 06/28/2009 at [facility] ORTHOPEDICS 04/17/[id number] / [id number] / ARYG Procedures Procedure NamePriorityDate/TimeAssociated DiagnosisCommentsBASIC METABOLIC PANEL Gsokger4606/29/2009 12:47 AM EDT from Last 3 Months or Most Recently Relevant to Health Maintenance Results * (ABNORMAL) BASIC METABOLIC PNL (06/29/2009 12:47 AM EDT)ComponentValueRef RangeTest MethodAnalysis TimePerformed AtPathologist NhfiywrsvAgfsojs449(H)65 - 100 mg/dLBRECKSVILLE VA / CRILLE [facility] MAIN BMHJAGWZEBUCO148 - 25 mg/dLPROVIDENCE HOSPITAL LABORATORYCreatinine0.53(L)0.70 - 1.40 mg/dLBRECKSVILLE VA / CRILLE [facility] MAIN UASGDXLRPPNcrrwo979807 - 148 mmol/LCREGIONAL MEDICAL CENTER MAIN LABORATORYPotassium 4.03.5 - 5.0 mmol/LCREGIONAL MEDICAL CENTER MAIN PYUBXIYJAVQocolggq26989 - 110 mmol/L [facility] QEOPPEBWCVZU946(L)23 - 32 mmol/LCREGIONAL MEDICAL CENTER MAIN LABORATORYAnion Inp299 - 15 mmol/LCREGIONAL MEDICAL CENTER MAIN LABORATORYCalcium7.6 (L)8.5 - 10.5 mg/dLPROVIDENCE HOSPITAL LABORATORYSpecimen (Source)Anatomical Location / LateralityCollection Method / VolumeCollection TimeReceived Time Blood specimen (specimen)BLOOD SPECIMEN / Aedrnlt3206/29/2009 12:47 AM EDT Narrative Authorizing ProviderResult TypeResult StatusJimy Wan MDLABORATORYFinal ResultPerforming OrganizationAddressCity/State/ZIP CodePhone Number [facility] [address] [place] [address] from Last 3 Months or Most Recently Relevant to Health Maintenance Care Teams Team MemberRelationshipSpecialtyStart DateEnd Date Aneesh Ramirez MD [address] [phone] PCP - General07/24/07
--- OUTSIDE RECORDS SUMMARY | 2025-01-01 09:43 | XMS_ITS | Clinical Summary ---
Author Organization [facility] Address [address] [place] [address] Care Team Providers Care Division Operations Specialist Name Role Phone Aleena Collado MD Primary Care Provider [phone] Allergies Active AllergyReactionsCriticalityNoted JtvwLgmuvsmeHcqbrqjjknrUqyvQtc47/09/2008 Medications MedicationSigDispense QuantityRefillsLast FilledStart DateEnd DateStatus aspirin [...] accident (CVA), unspecified mechanism (CMS/HCC), Atherosclerosis of [place] coronary artery of [place] heart without angina pectoris,Primary hypertension,SARAVIA (dyspnea on [...] 20 mg tablet Indications:Coronary artery disease involving [place] coronary artery of [place] heart without angina pectoris,Carotid artery stenosis, asymptomatic, [...] to extended spectrum beta lactamase (ESBL) producing lbvknaju34/25/2025 Overview (07/22/2024): ESBL E coli urine CRYSTAL (generalized anxiety disorder)01/21/2024 Overview (07/22/2024): Med agreement signed: 01/21/24 Heart failure, jmxyetozzcc91/10/2024Iron fodnanxuns97/10/2024Muscle spasm 01/21/2024sychophysiological badbpeen21/10/9181Gnbeker22/31/2024Incontinence without sensory wiuiodrbg78/31/2024Internal carotid artery stent present 09/11/2023UTI (urinary tract infection)09/11/2023White matter yksclzn5809/11/2023 Urinary tract infection ekpyuzly45/22/2024 Overview (09/11/2023): Last Assessment & Plan: Patient [...] of meclizine, ordered vestibular rehab Dizziness and scjysvtym63/08/2024 Overview (09/11/2023): Last Assessment & Plan: Dizziness [...] status) nemiaphasia due to acute stroke onfusionysphagia Rgrkmrza24H/O traumatic brain rdgzxu71 Wjsbbrhy61Impaired mobility and activities of daily living Encounter for prophylactic measures, /01/2024 03/14/2023Hospital discharge follow-up Overview (03/14/2023): Last Assessment & Plan: Patient recently admitted for worsening neurological symptoms - dysarthria, vertigo and admitted for suspected CVA - no evidence of acute CVA on MRI. Work up unremarkable. Patient also had migraine RIVAS with those symptoms and its possible that she had neurological symptoms due to migraine RIAVS. Patient will call and set up outpatient Vascular Neurology follow up She is on ASA, Crestor. BP is well controlled. No changes needed. SARAVIA (dyspnea on exertion)02/26/2023 Assessment & Plan (02/26/2023 2:17 PM EST): SARAVIA and leg edema- recommended to increase lasix to 40 mg daily for diuresis and repeat BMP next week Ashmsmbstu65History of cerebrovascular accident (CVA) with residual vyjblzg08Migraine with aura and without status migrainosus, not uofpuudifns57Overflow incontinence of urine Overview (03/14/2023): Last Assessment [...] Urology. Recurrent major depressive disorder, in full pcxmxdbcu74URTI (acute upper respiratory infection) Overview (03/14/2023): Last Assessment & Plan: Patient had reported symptoms of cough in the morning and had asked for testing. Respiratory panel is negative for any influenza, COVID. Symptoms resolved. Denies cough, SOB, nasal, chest congestion. Uyekwktznhc16/23/2023 Overview (03/05/2022): Images from the original note [...] Juarez- vascular surgery Recommended lymphedema clinic. Atypical ujewkc7403/05/2022 Assessment & Plan (03/05/2022 11:40 AM EST): Will start imdur 30 mg daily, d/w pt about headache as side effect and this should resolve after some time of taking imdur- if H/a does not resolve then we will stop medication. D/w pt that this may lower her b/p and to call office for any concerns. Mixed ksybvzepqmalgw27/09/2022 Assessment & Plan (02/13/2023 3:15 PM EST): Lipid abnormalities are well controlled, continue crestor Assessment & Plan (03/05/2022 11:42 AM EST): continue crestor 10 mg Assessment & Plan (01/19/2022 9:55 AM EST): Continue crestor 01/18/22 Chol 125, HDL 69, Trig 80. LDL 40 Coronary cfsfkiyxtowxohu53/10/2021 Overview (03/05/2022): Images from the original note [...] GDMT- ASA, toprol and crestor Carotid artery tjckoeex24/13/2021 Overview (03/05/2022): Images from the original note were not included. Assessment & Plan (03/05/2022 11:41 AM EST): F/U with vascular surgery for monitoring Assessment & Plan (01/19/2022 9:56 AM EST): Continue crestor F/U with vascular surgery Cerebrovascular tgoyeplc31/13/2021 Assessment & Plan (02/13/2023 3:13 PM EST): F/U with neuro Status post placement of implantable loop ihuefkjz59/26/2019 Overview (01/18/2022): Medtronic Loop Okfjukjzmklh48/12/2010 Assessment & Plan (03/14/2023 2:25 PM EST): [...] of medial cartilage or meniscus of knee, blslnuv1504/09/2007 Immunizations ImmunizationAdministration DatesNext IgfJIL29Influenza, High Dose Seasonal, Preservative Free12/22/2018Influenza, High-dose Seasonal, Quadrivalent, Preservative Free12/09/2019Influenza, Seasonal, Quadrivalent, Axifeniaun89/10/2022,11/26/2020Janssen Sars-Cov-2 Hdcrlasrntw84/01/2021Novel epiynklad-P9H8-53, preservative-free02/17/2009 Family History Medical HistoryRelationNameCommentsHeart attackBrotherHypertensionFather HypertensionMotherRelationNameStatusCommentsBrotherFatherDeceasedMotherDeceased Social History Tobacco UseTypesPacks/DayYears UsedDateSmoking Tobacco: NeverSmokeless Tobacco: Never Tobacco Cessation:Counseling Given: Not Answered Alcohol UseStandard Drinks/WeekCommentsYes0 (1 standard drink = 0.6 oz pure alcohol)occasionalUT Safety & EnvironmentAnswerDate RecordedFear of Current or Ex-PartnerNot on file04/04/2023Emotionally AbusedNot on file04/04/2023hysically AbusedNot on file04/04/2023Sexually AbusedNot on file04/04/2023hysically or Sexually AbusedNot on file02/22/2024CommentsUnknownSex and Gender InformationValueDate RecordedSex Assigned at BirthNot on fileLegal SexFemale 08/10/2021 12:33 AM EDTGender IdentityNot on fileSexual OrientationNot on file Last Filed Vital Signs Vital SignReadingTime TakenCommentsBlood Hajhnbwy024/62007/22/2024 10:59 AM EDT Zwymu4033 10:59 AM EDTTemperature--Respiratory Rate--Oxygen Saturation 99%07/22/2024 10:59 AM EDTInhaled Oxygen Concentration--Lchywm24.9 kg (154 lb) 07/22/2024 10:59 AM XTYEyywed976.6 cm (5' 4 )07/22/2024 10:59 AM EDTBody Mass Index26.43007/22/2024 10:59 AM EDT Plan of Treatment Health MaintenanceDue DateLast DoneCommentsMedicare Annual Wellness (AWV) 1948Depression Nlcarsxbe60/23/1961Zoster Vaccines (1 of 2)1998Adult Hizvlkc87Fall Risk Hmpohwvqf18/23/2014COVID-19 Vaccine (2 - season)/02/2020Influenza Vaccine (#1)509/, 11/24/2022, 01/20/2022, Additional history existsColonoscopyDiscontinued 05/12/2021olorectal Cancer ScreeningDiscontinuedPneumococcal Vaccine: 50+ Years Genszxlrs41/14/2023CT ColonographyDiscontinuedFIT-DNADiscontinuedFITDiscontinued FOBTDiscontinuedHIB VaccinesAged OutNo longer eligible based [...] Date Aleena Collado MD [address] [place] [phone] PCP - GeneralNurse Practitioner07/21/24
--- OUTSIDE RECORDS SUMMARY | 2025-01-01 09:43 | XMS_ITS | Clinical Summary ---
Author Organization [facility] tem Address [facility] [id number] [address] [place] [address] Care Team Providers Care Antique Repairer Name Role Phone Gerry Godwin MD Primary Care Provider [phone] Allergies Active AllergyReactionsCriticalityNoted AawsKnjjtuzjBxemwfhhxvl90/23/2019 Medications MedicationSigDispense QuantityRefillsLast FilledStart DateEnd DateStatus metoprolol [...] by mouth.02/13/2023ctive Active Problems ProblemNoted DateDiagnosed DateHLD (hyperlipidemia)07/02/20237677Uvptlnoai14/08/2024 Essential taksvvoschxd24/08/2024Migraine with aura and without status migrainosus, not dblzbkutars91/10/2024ecurrent major depressive disorder, in full eqyeqehyx13/10/2024oronary acctmpiudwzvwwd89/10/2021 Overview (07/02/2023): Images from the original note [...] tolerated and continue all medications. Carotid artery nijfzaiq34/13/2021 Overview (07/02/2023): Images from the original note [...] statin. 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 Immunizations No known immunizations Family History Medical HistoryRelationNameCommentsHeart zeikapHhegwysg0CdfzovGrrdasDxuzm Tumor ReyomrSpvjyhnrEioeIxqnvbDjisqcygFyllwosq0KqhmoxviNqeyjeAklwmjruUfawpiSjlhmava Social History Tobacco UseTypesPacks/DayYears UsedDateSmoking Tobacco: FormerCigarettes Smokeless Tobacco: NeverAlcohol UseStandard Drinks/WeekCommentsNo0 (1 standard drink = 0.6 oz pure alcohol)AUDIT-CAnswerDate RecordedFrequency of Alcohol LldwjffaaqiZjoyc66/23/2019Average Number of DrinksNot on file04/05/2018Frequency of Binge DrinkingNot on file04/05/2018PHQ-2AnswerDate RecordedTotal Score7 4ChildcareAnswerDate AczmuehqJieqckjwlOgzgohz82/05/2019EmploymentAnswer Date VcjyinyiDjabdsboviNxdrdad30/05/2019Purpose - LifeAnswerDate RecordedPurpose and direction in uznwAdbjxwn79/12/2021CommentsNoSex and Gender InformationValueDate RecordedSex Assigned at BirthNot on fileLegal SexFemale 04/05/2018 8:14 AM ESTGender IdentityNot on fileSexual OrientationNot on file Last Filed Vital Signs Vital SignReadingTime TakenCommentsBlood Dgegnnzd145/6405 8:53 AM EDT Ngxpk382407/02/2023 8:53 AM ZLREzmjlccacwd11.5 ??C (97.7 ??F)07/24/2018 12:23 PM EDTRespiratory Zbgb903107/24/2018 12:23 PM EDTOxygen Upwkyqzsbq69%07/24/2018 12:23 PM EDTInhaled Oxygen Concentration--Aarfed40.4 kg (137 lb 8 oz)07/02/2023 8:53 AM CHTMpibig175.4 cm (5')07/02/2023 8:53 AM EDTBody Mass Index26.85007/02/2023 8:53 AM EDT Plan of Treatment Health MaintenanceDue DateLast DoneCommentsZoster (Shingles) Vaccine (1 of 2) 1998Fall Risk Xufgqtjnu66/23/2014Depression Nsrklqrjs47/08/2023 Tobacco Xlfdtxqza45/OVID-19 Vaccine (2 - season) /02/2020Influenza Cycpzcv41/, 01/20/2022, 11/26/2020, Additional history existsDTaP,Tdap and Td Vaccines (2 - Tdap) /SV ( or age 60+ yrs)Lyzoebzyf73/14/2023 Goals GoalPatient Goal TypeAssociated ProblemsRecent ProgressPatient-Stated?Author safe discharge home Bryanna Albrecht, LESTER Note: Evaluation of progress towards goal: return home with self care and family support safe discharge home Bryanna Albrecht, LESTER Note: Evaluation of progress towards goal: Return home with self care and family support and resume outpatient therapy. Medical Devices ImplantedTypeAreaManufacturerDevice IdentifierShelf Expiration DateModel / Serial / LotSys Crd Rvl Linq Rpl [id number] - [id number] - [id number] [facility] Im[facility] MEDTRONIC CARD RHYTHM [id number]/10/2019LINQSYS / [id number] / Insurance Advance Directives * Full Code (Latest Code Status on File) Date ActivatedDate InactivatedComments07/22/2018 6:33 AM6 4:48 PM * Full Code Date ActivatedDate InactivatedComments04/05/2018 3:35 PM2 5:18 PM * Full Code Date ActivatedDate InactivatedComments04/05/2018 10:14 AM04/05/2018 3:35 PM Care Teams Team MemberRelationshipSpecialtyStart DateEnd Date Gerry Godwin MD PCP - GeneralFamily Medicine04/07/18
--- OUTSIDE RECORDS SUMMARY | 2025-01-01 09:49 | XMS_ITS | CCD ---
Author Organization [facility] Care Team Providers Care Operational Risk Analyst Name Role Phone Denver Juarez Unavailable Susie [...] 0 MD Aneesh Zendejas Other Provider [phone] MD Shavon Leos Other Provider MD Brayan Ribera Other Provider CÉSAR Arenas Other Provider [phone] MD Shefali Garibay Other Provider MD Vannessa Nava Other Provider MD Alissa Young Other Provider Jose [facility] Maddie Pietro Other Provider MD Anna Valladares Attending Provider NO FAMILY PHYSICIAN, 837 Primary Care Unavail able MIKE VIDES, [facility] Attending Unavaila MD Eddy Swenson Primary Care Provider DO Rafiq Bahena Emergency Provider Al MD Dagoberto Roche Admit Provider MD Anna Valladares Attending Provider MD Gerry Godwin Primary Care Provider MD Eddy Day Attending Provider LIZ LANE Admitting Unavailable DAVIDLIZ Attending Unavailable FAWWAD, KAM H Primary Care Unavailable FAWWAD, KAM H Admitting Unavailable FAWWAD, KAM H Attending Unavailable FAWWAD, KAM H Primary Care Unavailable Nico, DR Senior Consulting Unavailable FAWWAD, KAM H Consulting Unavailable DAVID, LIZ Admitting Unavailable LEOLA LANEA Attending Unavailable FAWWAD, KAM H Primary Care Unavailable DAVID, LIZ Consulting Unavailable FAWWAD, KAM H Primary Care Unavailable ALONSO JACOBS Admitting Unavailable ALONSO JACOBS Attending Unavailable Natacha Jauregui Consulting Unavailable ALONSO JACOBS Consulting Unavailable SHANIA WASHINGTON Consulting Unavaila MANDI Chaidez Consulting Unavailable FAWWAD, KAM H Primary Care Unavailable YANIV, DR RAMSAY Admitting Unavailable YANIV, DR RAMSAY Attending Unavailable YANIV, DR RAMSAY Consulting Unavailable MARKER, DR ORTIZ Consulting Unavailable LUCI MARADIAGA Consulting Unavailable MITZI LOWRY Consulting Unavailable BASIM CABAN Consulting Unavailable DAVID, LIZ Admitting Unavailable DAVID, LIZ Attending Unavailable FAWWAD, AKM H Primary Care Unavailable FAWWAD, KAM H [...] Unavailable FAWWAD, KAM H Primary Care Unavailable EDDI, SHERRI Consulting Unavailable EDDI, SHERRI Admitting Unavailable SHERRI MONTAGUE Attending Unavailable MARYSE LANGFORD Consulting Unavailable FAWWAD, KAM H Attending Unavailable FAWWAD, KAM H Primary Care Unavailable FAWWAD, KAM H Consulting Unavailable FAWWAD, KAM H Admitting Unavailable FAWWAD, KAM H Primary Care Unavailable ALONSO JACOBS Admitting Unavailable ALONSO JACOBS Attending Unavailable JEAN-PIERRE GIRALDO Consulting Unavailable Natacha Jauregui Consulting Unavailable ALONSO JACOBS Consulting Unavailable MD Eddy Day Primary Care Provider [phone] CÉSAR Harris Attending Provider [phone] Earline Harris Unavailable Kori Temple Unavailable SHAIKH DAY Primary Care Physician MD Lazaro Dayikh Primary Care Provider [phone] MD Eddy Day Attending Provider Shaik Day MDh Primary Care Provider MD Lazaro Dayikh Primary Care Provider MD Denver Juarez Attending Provider MD Denver Juarez Admit Provider [phone] MOHINDER Still Attending Provider Hannah Still Attending [...] Orzech, Carmen X Admitting Unavailable MD Barb [facility] Primary Care Provider ANA SumnerC Felicita Isaac Attending Provider Heaevn FLORES, Cindy Unavailable Tato VIDES, Gerry Primary Care Provider Shaikh Day MD Unavailable Aime Clark DO Unavailable Unallocated , Noms Provider Primary Care Provi neftali Marbin DO, Nakul Unavailable [phone] Claudio RAIL SPECIALIST, Ynes Unavailable Harsha FLORES, Jameson Unavailable MD Barb [facility] Primary Care Provider DO Aime Clark Attending Provider Gerry Godwin MD Primary Care Provider Milton Piña MA Unavailable Unavailable Barb VIDES, Kam Primary Care Provider Aime Clark DO Attending [...] German Attending Unavailable BERNICE CLEMENTE Attending Unavailable Aichholbharati RAIL SPECIALIST, Cindy Unavailable Claudio RAIL SPECIALIST, Ynes Unavailable Gerry Godwin MD Unavailable BERNICE CLEMENTE Attending Unavailable Alexandr OVALLE Admitting Unavailable Alexandr OVALLE Attending Unavailable BERNICE CLEMENTE Attending Unavailable CINDY COLLADO Primary Care Physician RUBEN SALVADOR Attending Unavailable RUBEN SALVADOR Attending Unavailable BERNICE CLEMENTE Attending Unavailable BERNICE CLEMENTE Admitting Unavailable BERNICE CLEMENTE Attending Unavailable Alexandr OVALLE Admitting Unavailable Alexandr OVALLE Attending Unavailable Nakul Zazueta DO Unavailable Claudio RAIL SPECIALIST, Ynes Unavailable Harsha FLORES, Jameson Unavailable Unavailable Milton Piña MA Unavailable CINDY COLLADO Attending Unavailable JAMESON MCLEOD Attending Unavailable CINDY COLLADO Attending Unavailable CHAIM HARE Attending Unavailable JAMESON MCLEOD Referring Unavailable CINDY COLLADO Attending Unavailable SHAIKH DAY Attending Unavailable SHAIKH DAY Attending Unavailable CINDY COLLADO Attending Unavailable AIME CLARK Attending Unavailable AICHCINDY LANGFORD Referring Unavailable NAKUL ZAZUETA Attending Unavailable CINDY COLLADO Attending Unavailable Harsha LINDSEY-AMBULATORY CARE COORDINATOR-Jameson Vasquez Attending Provider Cindy Collado Primary Care Provider BERNICE CLEMENTE Attending Unavailable Alexandr OVALLE R Referring Unavailable OVALLEAlexandr R Admitting Unavailable OVALLEAlexandr R Attending Unavailable OVALLEAlexandr R Attending Unavailable OVALLEMaricarmenAlexandr R Referring Unavailable OVALLE Alexandr R Admitting Unavailable OVALLE, Alexandr R Admitting Unavailable OVALLE, Alexandr R Attending Unavailable OVALLE, Alexandr R Attending Unavailable Orzech, Carmen X Attending Unavailable OVALLE, Alexandr R Attending Unavailable Orzech, Carmen X Attending Unavailable OVALLE, Alexandr R Admitting Unavailable OVALLE, Alexandr R Attending Unavailable OVALLE, Alexandr R Referring Unavailable Orzech, Carmen X Admitting Unavailable Orzech, Carmen X Attending Unavailable Orzech, Carmen X Attending Unavailable Heaven RAIL SPECIALIST-C, Cindy Perry Primary Care Provider Heaven RAIL SPECIALIST-C, Cindy Perry Attending Provider Harsha CHANNEL TURNER-AMBULATORY CARE COORDINATOR-C, Jameson Carias Attending Provider Barb VIDES, Primary Care Provider Heaven RAIL SPECIALIST, Cindy Unavailable Tato VIDES, Gerry Primary Care Provider Barb VIDES, Unavailable Unallocatmaday VIDES, Jeremiass Provider Primary Care Provi neftali Tato VIDES, Gerry Primary Care Provider [phone] Wang ZARCO, Saebel Unavailable Tato VIDES, Gerry Unavailable Barb VIDES, Kam Primary Care Provider Shaikh Day Primary Care Unavailable Denver Juarez Admitting UnavailDenver Hunter Attending Unavailabl e Cindy Collado Attending Unavailable Cindy Collado Admitting Unavailable Cindy Collado Primary Care Unavailable Allergies Allergy ClassificationReported Allergen(s)Allergy TypeDate of OnsetReaction(s) Facility (20 sources)Penicillin GDrug [id number] [facility] (20 sources)Penicillins; Translations: [PENICILLINS]Allergy to substance 36-19-6332EbbfRgxvptzcpAv[facility] ([facility] source)PenicillinDrug Qktigzq76-95-2797LrpGalion Hospital (20 sources)Penicillin; Translations: [penicillin]Drug AllergyExecutive [facility] Medications Current Medications MedicationDrug Class(es)DatesSig (Normalized)Sig (Original)acetaminophen 325 mg / HYDROcodone bitartrate 5 mg oral tablet (1 source)Opioid AgonistStart: 35-69-1053lowe 1-2 tablets by mouth every four to six hours as neededHYDROcodone-Acetaminophen 5-325 MG 1-2 tablet as needed Orally every 4-6 hrs for 7 days Mar, [id number] 200 actuat albuterol 0.09 mg/actuat metered dose inhaler (5 sources)beta2-Adrenergic Agonist End: 83-66-5475bbnq 2 puff(s) by inhalation every four hoursalbuterol HFA 90 mcg/act inhaler Inhale 2 puffs every 4 (four) hours if needed for shortness of breath 10/22/2023 Discontinued (Therapy completed)amLODIPine 2.5 mg oral tablet (20 sources)Dihydropyridine Calcium Channel BlockerStart: 08-28-2022 End: 77-63-9660uowv 1 tablet by mouth once dailyAmlodipine 2.5 mg tablet Active 2.5 MG PO Daily April 09, 2023 1:00am FreeTextSi tablet Orally Once a day; Note: Source Status: Taking; Provider: Windy Sheikh ( ) Complies with drug therapyascorbic acid 500 mg oral tablet (20 sources)Vitamin CStart: 38-62-8858aaco 1 tablet by mouth once dailyAscorbic Acid (Vitamin C) 500 mg tablet Active 500 MG PO Daily November 08, 2024 12:00am Complies with drug therapyStart: 66-12-1099Pdfqihk C See Instructions, Refills(s) 0 Start Date: 04/14/24 Status: Ordered Repeat number: 1Start: 93-76-1536Mvojlcg C See Instructions, Refills(s) 0 Start Date: 04/14/24 Status: Orderedtake 1 tablet by mouth once dailyascorbic acid (Vitamin C) 500 MG tablet Take 500 mg by mouth Daily Activeaspirin 81 mg chewable tablet (20 sources)Platelet Aggregation Inhibitor, Nonsteroidal Anti-inflammatory Drug Start: 01-16-2023 End: 76-17-6243pdmb 1 tablet by mouth once dailyAspirin 81 mg tablet,chewable Active 81 MG PO Daily April 12, 2023 1:00am FreeTextSi tablet Orally Once a day; Note: Source Status: Taking; Provider: Windy Sheikh ( ) Complies with drug therapyStart: 03-23-2020 End: 55-50-4165qzaj 1 tablet by mouth once dailyAspirin 81 mg Tablet,Delayed Release (Dr/Ec) Discontinued 81 MG PO Daily March 23, 2020 1:00amMarch 2023 9:44am CVA preventionStart: 04-10-2018 End: 61-65-6394bxdp 1 tablet by mouth once dailyAspirin 81 mg Tablet,Chewable Discontinued 81 MG PO Daily 0 0 April 18, 2018 1:00am March 5:28pm Start: 04-10-2018 End: 20-01-0565frnm 1 tablet by mouth once daily in the morningAspirin 81 mg tablet,chewable Discontinued 81 MG PO Every morning March 26, 2019 5:28pm March 23, 2020 1:03pm cvabaclofen 20 mg oral tablet (20 sources)gamma-Aminobutyric Acid-ergic AgonistStart: 08-12-2024 End: 30-78-7709argx 1 tablet by mouth every eight hours as needed for muscle spasms and muscle spasmsbaclofen (Lioresal) 20 MG tablet Indications: Muscle spasm Take 1 tablet (20 mg) by mouth every 8 (eight) hours if needed for muscle spasms 90 tablet 2 08/12/2024 ActiveStart: 19-43-6105XRBSGKFS 20MG TAB BACLOFEN 20MG TAB Start Date: 03/07/23 Status: Ordered Repeat number: 1Start: 03-07-2023 BACLOFEN 20MG TAB BACLOFEN 20MG TAB Start Date: 03/07/23 Status: OrderedStart: 04-05-2018 End: 78-97-7554qrvh 1 tablet by mouth three times daily [...] mg oral tablet (20 sources)Histamine-1 Receptor AntagonistStart: 77-67-7287wfvx 1 tablet by mouth once daily as neededCetirizine 10 mg tablet Active 10 MG PO Daily as needed November 08, 2024 12:00am Complies with drug therapyStart: 02-18-2020 End: 82-51-5878tsje 1 tablet by mouth once dailyCetirizine (All Day Allergy (Cetirizine)) 10 mg Tablet Discontinued 10 MG PO Daily February 18, 2020 1:00am November 21, 2021 11:26am allergy symptomsD-Mannose (2 sources)Start: 72-81-0655mucy 1 mg by mouth onceD-Mannose (Azo D-Mannose) 500 mg capsule Active MG PO November 08, 2024 12:00am Complies with drug therapy D-Mannose 500 MG capsule (20 sources)take 1 capsule by mouth once dailyD-Mannose 500 MG capsule Take 500 mg by mouth Daily [facility] Activediclofenac sodium 0.01 mg/mg topical gel (6 sources)Nonsteroidal Anti-inflammatory DrugStart: 46-58-5447Zioscrqt 1 % apply 1-2 grams to affected area Transdermal twice daily for 30 days Jul, Activedoxycycline hyclate 100 mg oral capsule (20 sources)Tetracycline-class DrugStart: 09-15-2024 End: 21-85-7509roih 1 capsule by mouth in the morningdoxycycline (Vibramycin) 100 MG capsule Take 100 mg by mouth in the morning and 100 mg before bedtime. 09/15/2024 ActiveStart: 41-78-0147auve 1 capsule by mouth once dailydoxycycline hyclate 100 mg Cap 100 mg = 1 cap(s), Oral, Daily, Start the day before the procedure, # 14 cap(s), Refills(s) 0, Pharmacy: [facility], 160, cm, 07/16/24 10:45:00 EDT, Height/Length Dosing, 61, kg, 07/16/24 10:45:00 EDT, Weight Dosing Start Date: 09/09/24 Status: Ordered Quantity: 14.0 Unit: cap(s) Repeat number: 1Start: 05-08-2024 End: 86-31-3244rbvs 1 tablet by mouth in the morningdoxycycline (Vibra-Tabs) 100 MG tablet Take 100 mg by mouth in the morning and 100 mg before bedtime. 05/08/2024 08/11/2024 Discontinued (Therapy completed)Start: 33-81-2480aken 1 capsule by mouth every twelve hoursDoxycycline Hyclate 100 MG 1 capsule Orally Twice a day for 5 day(s) Mar, Activeestradiol 0.1 mg/ml vaginal cream (20 sources)EstrogenStart: 30-96-3255Kdvabwrvk 0.01 % (0.1 mg/gram) cream Active 1 GM VAGINAL 3 Times a week November 08, 2024 12:00am Complies with drug therapyStart: 36-51-4385kdhlrzzre (Estrace) 0.1 MG/GM vaginal cream apply a pea- sized amount vaginally and around the urethra NIGHTLY TIME 3 (THREE) weeks, then 3 (THREE) times per week thereafter 04/01/2024 ActiveStart: 52-56-8790Jvgsepn 0.1 mg/g Cream See Instructions, 42.5 gm, Refill(s) 6, apply a pea-sized amount vaginally and around the urethra nightly x 3 weeks, then 3x per week thereafter, [facility], 160, cm, 04/01/24 8:56:00 EST, Height/Length Dosing, 60, kg, 04/01/24 8:56:00 EST, Weight Dosing StartDate: 04/01/24 Status: Ordered Quantity: 42.5 Unit: g Repeat number: 7FeroSul (2 sources)FeroSul ActiveFeroSul 325 mg oral tablet (20 sources)Start: 29-46-6316dynj 1 mg by mouth three times dailyFeroSul 325 mg oral tablet mg tab(s), Oral, TID, Refills(s) 0 Start Date: 03/07/23 Status: Ordered Repeat number: 1Start: 55-49-9416zjpv 1 mg by mouth three times daily FeroSul 325 mg oral tablet mg tab(s), Oral, TID, Refills(s) 0 Start Date: 03/07/23 Status: Orderedferrous sulfate 325 mg oral tablet (20 sources)Start: 11-13-2022 End: 90-85-9065azcd 1 tablet by mouth at mealtimeferrous sulfate 325 (65 Fe) MG EC tablet Take 1 tablet by mouth in the morning. Take with meals. 11/13/2022 10/22/2023 Discontinued (Therapy completed)Start: 11-21-2021 End: 10-13-2569kckz 1 tablet by mouth once dailyFerrous Sulfate (Ferosul) 325 mg (65 mg iron) tablet Active 325 MG PO Daily November 21, 2021 12:00am Complies with drug therapyStart: 12-12-2018 End: 90-61-1400jfem 1 tablet by mouth every other weekFerrous Sulfate 324 mg (65 mg iron) tablet,delayed release (DR/EC) Discontinued 324 MG PO EVERY 2 WEEKS December 12, 2018 10:27am February 18, 2020 1:28pmStart: 04-18-2018 End: 52-00-4588xiro 1 tablet by mouth twice dailyFerrous Sulfate 324 mg (65 mg iron) Tablet,Delayed Release (Dr/Ec) Discontinued 324 MG PO Twice daily 60 30 0 April 18, 2018 1:00am December 12, 2018 10:28amfurosemide 20 mg oral tablet (20 sources)Loop DiureticStart: 86-59-4851qroa 2 tablets by mouth once daily Furosemide 20 mg tablet Active 40 MG PO Daily November 08, 2024 12:09pm Complies with drug therapyStart: 00-90-7598sbrr 10 mg by mouth once dailyLasix 20 mg Tab 10 mg = 0.5 tab(s), Oral, Daily Start Date: 04/01/24 Status: Ordered Repeat number: 1Start: 02-13-2023 End: 53-07-1848exotynqgft (Lasix) 40 MG tablet Take 20 mg by mouth Daily Pt takes 20mg 02/13/2023 ActiveStart: 02-13-2023 End: 58-83-2883zxerwfpxlr 40 mg Tab Refills(s) 0 Start Date: 03/07/23 Status: OrderedStart: 11-21-2021 End: 51-05-0893jypq 1 tablet by mouth every other dayFurosemide 20 mg tablet Discontinued 20 MG PO .every other day November 21, 2021 12:00am 2024 12:11pm 20mg 2 tabsStart: 39-31-9175yvzb 20 mg by mouth once daily in the morningFurosemide Active 20 MG PO Every morning November 20, 2021 11:00pmtake 2 tablets by mouth every other dayFurosemide 20 MG 2 tablets Orally every other day Activehydrocortisone 10 mg/ml / neomycin 3.5 mg/ml / polymyxin b 98619 unt/ml otic solution (2 sources)Aminoglycoside Antibacterial, Polymyxin-class Antibacterial, CorticosteroidStart: 2024 End: 16-07-3384qomfmqqo-polymyxin-hydrocortisone (Cortisporin) otic solution Indications: Acute diffuse otitis externa of both ears Administer 4 drops into each ear in the morning and 4 drops in the evening and 4 drops before bedtime. Do all this for 10 days. 10 mL 2024 06/13/2024 Activemeclizine hydrochloride 25 mg oral tablet (20 sources)AntiemeticStart: 05-29-2024 End: 72-80-4238xlgo 1 tablet by mouth oncemeclizine (Antivert) 25 MG tablet Indications: Dizziness and giddiness Take 1 tablet (25 mg) by mouth every 12 (twelve) hours if needed for dizziness 60 tablet 05/29/2024 06/28/2024 Active Start: 06-25-2023 End: 74-78-1429jdvv 1 tablet by mouth three times daily as needed for dizziness meclizine (Antivert) 25 MG tablet Indications: Dizziness and giddiness Take 1 tablet (25 mg) by mouth 3 (three) times a day as needed for dizziness 270 tablet 08/05/2023 11/03/2023 Activemethenamine hippurate 1000 mg oral tablet (20 sources)Start: 64-33-6162Vcwwthcmocz Hippurate 1 gram tablet Active 1 GM PO Twice daily November 08, 2024 12:00am Complies with drug therapyStart: 91-43-6004hgwy 1 tablet by mouth in the morningmethenamine hippurate (Hiprex) 1 g tablet Take 1 g by mouth in the morning and 1 g before bedtime. 04/14/2024 ActiveStart: 04-14-2024 End: 23-37-6106xcar 1 tablet by mouth twice dailymethenamine hippurate 1 g oral tablet 1 gm = 1 tab(s), Oral, BID, X 30 day(s), # 60 tab(s), Refills(s) 11, Pharmacy: [facility], 160, cm, 04/14/24 12:55:00 EST, Height/Length Dosing, 61, kg, 04/14/24 12:55:00 EST, Weight Dosing Start Date: 04/14/24 Stop Date: 04/09/25 Status: Ordered Quantity: 60.0 Unit: tab(s) Repeat number: 12 Indications: Urinary tract infection, site not specified;24 hr mirabegron 50 mg extended release oral tablet (7 sources)beta3-Adrenergic AgonistStart: 07-16-2024 End: 12-76-4424sbht 1 tablet by mouth once dailyMyrbetriq 50 mg oral tablet, extended release 50 mg = 1 tab(s), Oral, Daily, X 30 day(s), # 30 tab(s), Refills(s) 11, Pharmacy: [facility], 160, cm, 04/14/24 12:55:00 EST, Height/Length Dosing, 61, kg, 04/14/24 12:55:00 EST, Weight Dosing Start Date: 07/16/24 Stop Date: 07/11/25 Status: Ordered Quantity: 30.0 Unit: tab(s) Repeat number: 12nitrofurantoin, macrocrystals 25 mg / nitrofurantoin, monohydrate 75 mg oral capsule (7 sources)Nitrofuran AntibacterialStart: 01-21-2024 End: 89-29-5087zyil 1 capsule by mouth in the morningnitrofurantoin, macrocrystal-monohydrate, (Macrobid) 100 MG capsule Indications: UTI symptoms Take 1 capsule (100 mg) by mouth in the morning and 1 capsule (100 mg) before bedtime. Do all this for 7 days. 14 capsule 01/21/2024 01/28/2024 ActiveStart: 11-19-2023 End: 89-96-1646imqv 1 capsule by mouth in the morningnitrofurantoin, macrocrystal-monohydrate, (Macrobid) 100 MG capsule Indications: Urinary tract infection symptoms Take 1 capsule (100 mg) by mouth in the morning and 1 capsule (100 mg) before bedtime. Do all this for 7 days. 14 capsule 11/19/2023 11/26/2023 ActiveStart: 07-15-2023 End: 35-43-9448fkxc 1 capsule by mouth twice dailyMacrobid 100 mg Cap 100 mg = 1 cap(s), Oral, BID, X 7 day(s), # 14 cap(s), Refills(s) 0, Pharmacy: [facility] #[id number], 160, cm, 07/15/23 12:40:00 EDT, Height/Length Dosing, 60, kg, 07/15/23 12:40:00 EDT, Weight Dosing Start Date: 07/15/23 Stop Date: 07/22/23 Status: Orderedondansetron 8 mg disintegrating oral tablet (4 sources)Serotonin-3 Receptor AntagonistStart: 67-57-8782yxea 1 tablet by mouth every eight hours as neededOndansetron 8 MG 1 tablet on the tongue and allow to dissolve as needed Orally every 8 hours as needed for 3 days Sep, ActiveProbiotic Product (PROBIOTIC/PREBIOTIC/CRANBERRY PO) (20 sources)take 60 mg by mouth once dailyProbiotic Product (PROBIOTIC/PREBIOTIC/CRANBERRY PO) Take 60 mg by mouth Daily ActiveQUEtiapine 50 mg oral tablet (20 sources)Atypical AntipsychoticStart: 03-26-2019 End: 39-82-0183huqj 1 tablet by mouth once daily at bedtimeQuetiapine 50 mg tablet Active 50 MG PO Daily at bedtime March 26, 2019 1:00am insomnia Complies with drug therapyrosuvastatin calcium 20 mg oral tablet (20 sources)HMG-CoA Reductase InhibitorStart: 08-28-2022 End: 47-24-3887bgvl 1 tablet by mouth once dailyRosuvastatin 20 mg tablet Active 20 MG PO Daily April 09, 2023 1:00am FreeTextSi tablet Orally Once a day; Note: Source Status: Taking; Provider: Windy Sheikh ( ) Complies with drug therapyStart: 12-12-2018 End: 55-86-9502uwhs 1 tablet by mouth once daily at bedtimeRosuvastatin (Crestor) 10 mg Tablet Discontinued 10 MG PO Daily at bedtime December 12, 2018 12:00am April 09, 2023 10:45am hyperlipidemiaStart: 04-10-2018 End: 23-23-8492bgyg 1 tablet by mouth at bedtimeRosuvastatin (Crestor) 10 mg Tablet Discontinued 10 MG PO Bedtime April 18, 2018 7:54am May 17, 2018 12:00am May 18, 2018 12:02amRosuvastatin Calcium Activesulfamethoxazole 800 mg / trimethoprim 160 mg oral tablet (18 sources)Dihydrofolate Reductase Inhibitor Antibacterial, Sulfonamide AntimicrobialStart: 04-06-2024 End: 38-72-7427Gqyewjn D.S. 800 mg-160 mg Tab 1 tab(s), Oral, BID for 14 day(s), 28 tab(s), Refill(s) 0, [facility], 160, cm, 04/01/24 8:56:00 EST, Height/Length Dosing, 60, kg, 04/01/24 8:56:00 EST, Weight Dosing Start Date: 04/06/24 Stop Date: 04/20/24 Status: OrderedStart: 02-20-2024 End: 29-10-7636necx 1 tablet by mouth once in the morning, then take 1 tablet by mouth once at bedtimesulfamethoxazole-trimethoprim (Bactrim DS) 800-160 MG per tablet Take 1 tablet by mouth in the morning and 1 tablet before bedtime. 02/20/2024 05/12/2024 Discontinued (Therapy completed)Start: 10-30-2023 End: 46-94-1429egvq 1 tablet by mouth once in the morning, then take 1 tablet by mouth once at bedtimesulfamethoxazole-trimethoprim (Bactrim DS) 800-160 MG per tablet Indications: Acute cystitis without hematuria Take 1 tablet by mouth in the morning and 1 tablet before bedtime. Do all this for 7 days. 14 tablet 10/30/2023 11/06/2023 ActiveStart: 05-11-2023 End: 16-91-6480wtzw 1 tablet by mouth twice dailySulfamethoxazole-Trimethoprim 800-160 mg tablet Discontinued 1 TAB PO Twice daily 10 5 0 May 11, 2023 12:00am February 20, 2024 11:35amtopiramate 50 mg oral tablet (20 sources)Start: 70-80-9032Borjjvynti 50 mg tablet Active 25 MG PO Daily at bedtime November 26, 2024 10:03am Complies with drug therapyStart: 11-21-2021 End: 90-72-0045kixw 1 tablet by mouth once dailyTopiramate 50 mg tablet Discontinued 50 MG PO Daily November 21, 2021 12:00am November 26, 2024 10 :03am24 hr trospium chloride 60 mg extended release oral capsule (20 sources)Cholinergic Muscarinic AntagonistStart: 42-28-3401Lsydymik 60 mg capsule,extended release 24hr Active 20 MG PO Daily December 03, 2024 11:50am must be taken on empty stomach at least 1 hour before a meal/food with water only Complies with drug therapyStart: 95-60-4308ciif 1 capsule by mouth every twenty-four hours in the morningtrospium (Sanctura XR) 60 MG 24 hour capsule Take 60 mg by mouth in the morning. 05/14/2024 ActiveStart: 03-07-2023 End: 60-33-3094nvvn 1 capsule by mouth once daily 1 hour(s) before mealtime Trospium 60 mg capsule,extended release 24hr Discontinued 60 MG PO Daily April 09, 2023 1:00amOct2024 11:51am must be taken on empty stomach at least 1 hour before a meal/food with water only End: 28-96-5002ylpw 3 tablets by mouth in the morningtrospium (Sanctura) 20 MG tablet Take 60 mg by mouth in the morning and 60 mg before bedtime. 08/11/2024 Discontinued (Therapy completed)ubrogepant 100 mg oral tablet (3 sources) End: 67-98-3209Ymuuffggvr (Ubrelvy) 100 MG tablet Take 100 mg by mouth 10/22/2023 Discontinued (Therapy completed)vibegron 75 MG Oral Tablet (4 sources)Start: 24-61-4485hsgj 1 tablet by mouth once dailyvibegron 75 mg oral tablet 75 mg = 1 tab(s), Oral, Daily, # 30 tab(s), Refills(s) 11, Pharmacy: [facility], 160, cm, 04/14/24 12:55:00 EST, Height/Length Dosing, 61, kg, 04/14/24 12:55:00 EST, Weight Dosing Start Date: 07/16/24 Status: Ordered Quantity: 30.0 Unit: tab(s) Repeat number: 12Vitamin B-12 1000 MCG (7 sources)take 1 tablet by mouth once dailyVitamin B-12 1000 MCG 1 tablet Orally Once a day Active Completed/Discontinued Medications MedicationDrug Class(es)DatesSig (Normalized)Sig (Original)acetaminophen 325 mg oral tablet (20 sources)Start: 03-26-2019 End: 82-89-0963jbqx 325-650 mg by mouth once daily as needed for headache Acetaminophen 325 mg tablet Discontinued 325 - 650 MG PO Daily as needed for Headache March 26, 2019 5:28pm April 09, 2023 10:46amStart: 04-18-2018 End: 00-58-0506dfxi 1 tablet by mouth every four hours as needed for pain Acetaminophen 325 mg Tablet Discontinued 325 MG PO Q4H as needed for Pain 0 0 April 18, 2018 1:00am March 26, 2019 5:28pmcephalexin 500 mg oral capsule (14 sources)Cephalosporin AntibacterialStart: 11-22-2021 End: 16-88-9216tzcz 1 capsule by mouth three times dailyCephalexin 500 mg capsule Discontinued 500 MG PO Three times daily 15 5 0 November 22, 2021 12:00am April 09, 2023 10:46amciprofloxacin 500 mg oral tablet (11 sources)Quinolone AntimicrobialStart: 15-92-3816gaiu 1 tablet by mouth once dailyCipro 500 mg Tab 500 mg = 1 tab(s), Oral, Daily, Take 1 tablet the day before the procedure and 1 tablet after the procedure, # 2 tab(s), Refills(s) 0, Pharmacy: [id number], 160, cm, 07/16/24 10:45:00 EDT, Height/Length Dosing, 61, kg, 07/16/24 10:45:00 EDT, Weight Dosing Start Date: 07/16/24 Status: Ordered Quantity: 2.0 Unit: tab(s) Repeat number: 1Start: 01-23-2024 End: 02-36-1376vpfmxkaewvmya 500 mg Tab Refills(s) 0 Start Date: 01/29/24 Status: OrderedclonazePAM 0.5 mg oral tablet (20 sources)BenzodiazepineStart: 04-05-2018 End: 12-45-0039skjb 1 tablet by mouth twice dailyClonazepam 0.5 mg Tablet Discontinued 0.5 MG PO Twice daily December 12, 2018 12:00am November 08, 2024 12:11pmtake 1 tablet by mouth every twenty-four hoursclonazePAM 0.5 MG 1 tablet at bedtime Orally Once a day Activeclopidogrel 75 mg oral tablet (20 sources)P2Y12 Platelet InhibitorStart: 12-12-2018 End: 14-20-4121bbae 1 tablet by mouth once dailyClopidogrel (Plavix) 75 mg tablet Discontinued 75 MG PO Daily 90 90 3 April 09, 2023 1:00am November 26, 2024 10:02am Stenosis of carotid artery Occlusion and stenosis of unspecified carotid arterydocusate sodium 100 mg oral capsule (20 sources)Start: 04-18-2018 End: 80-49-0714zqzy 1 capsule by mouth twice daily as [...] oral tablet (20 sources)Thiazide DiureticStart: 12-12-2018 End: 23-21-9185dind 1 tablet by mouth once daily in the morning Hydrochlorothiazide 12.5 mg Tablet Discontinued 12.5 MG PO Every morning December 12, 2018 12:00amFebruary 2020 1:05pm htntake 1 capsule by mouth once dailyhydroCHLOROthiazide (MICROZIDE) 12.5 mg capsule Take 1 capsule (12.5 mg total) by mouth daily. ActivehydroCHLOROthiazide 12.5 mg / lisinopril 10 mg oral tablet (20 sources)Thiazide Diuretic, Angiotensin Converting Enzyme InhibitorStart: 04-05-2018 End: 38-64-6450rxnw 1 tablet by mouth once daily in the morningLisinopril- Hydrochlorothiazide 10-12.5 mg tablet Discontinued 1 TAB PO Every morning March 5:28pm April 09, 2023 10:45am htntake 10-12.5 mg by mouth once in the morninglisinopril-hydroCHLOROthiazide (PRINZIDE,ZESTORETIC) 10-12.5 mg per tablet Take 1 tablet by mouth in the morning. ActiveLisinopril- hydroCHLOROthiazide Activeibuprofen 800 mg oral tablet (16 sources)Nonsteroidal Anti-inflammatory DrugStart: 04-05-2018 End: 48-77-2749wbbr 1 tablet by mouth three times dailyIbuprofen 800 mg Tablet Discontinued 800 MG PO Three times daily April 05, 2018 1:00am April 18, 2018 7:51am24 hr metoprolol succinate 25 mg extended release oral capsule (20 sources)beta-Adrenergic BlockerStart: 04-09-2023 End: 50-08-4084kphw 1 capsule by mouth once dailyMetoprolol Succinate 25 mg capsule,sprinkle,ER 24hr Discontinued 25 MG PO Daily April 0941:00am November 08, 2024 12:11pm FreeTextSi capsule Orally Once a day; Note: Source Status: Taking; Provider: Windy Sheikh ( )Start: 03-07-2023 End: 85-32-7253akrz 1 tablet by mouth once dailyMetoprolol Succinate 25 mg tablet extended release 24 hr Active 25 MG PO daily November 08003328:00am Complies with drug therapyStart: 01-28-2023 End: 66-33-2566vrhn 1 tablet by mouth every twenty-four hours in the morning metoprolol succinate XL (Toprol-XL) 25 MG 24 hr tablet Indications: Primary hypertension (CMS/HCC) take 1 tablet by mouth IN THE MORNING DO NOT CRUSH OR CHEW 90 tablet 1 07/22/2023 10/22/2023 Discontinued (Reorder)Start: 04-05-2018 End: 09-80-6488sqye 1 tablet by mouth once daily in the morningMetoprolol Succinate 25 mg tablet extended release 24 hr Discontinued 25 MG PO Every morning March 26, 2019 5:33pm November 22, 2021 1:21pm htntake 1 capsule by mouth once dailyMetoprolol Succinate 25 MG 1 capsule Orally Once a day for 30 day(s) Activenaproxen 500 mg oral tablet (16 sources)Nonsteroidal Anti-inflammatory DrugStart: 04-05-2018 End: 06-35-4382qcue 1 tablet by mouth twice daily as needed for painNaproxen 500 mg Tablet Discontinued 500 MG PO Twice daily as needed for Pain April 05, 2018 1:00am April 18, 2018 7:51amphenazopyridine hydrochloride 200 mg oral tablet (9 sources)Start: 05-11-2023 End: 08-95-6799gwgk 1 tablet by mouth every eight hoursPhenazopyridine (Pyridium) 200 mg tablet Discontinued 200 MG PO Every 8 hours 6 2 0 May 11, 2023 12:00am November 08, 2024 12:10pmpotassium chloride 10 meq extended release oral capsule (20 sources)Start: 91-11-8437Fqyavojfo Chloride (Tji-Owqm-Apz M10) 10 mEq oral tablet, extended release Refills(s) 0 Start Date:03/07/23 Status: Ordered Repeat number: 1Start: 73-97-8817Bjublqzej Chloride (Bkn-Aqvp-Pvd M10) 10 mEq oral tablet, extended release Refills(s) 0 Start Date:03/07/23 Status: OrderedStart: 02-13-2023 End: 67-96-9841aqwiwoiri chloride (KLOR-CON M 10) 10 MEQ CR tablet Take 1 tablet (10 mEq total) by mouth. 02/13/2023 02/13/2024 ActiveStart: 02-07-2023 End: 23-98-3699kscs 1 capsule by mouth once dailyPotassium Chloride 10 mEq capsule, extended release Discontinued 10 MEQ PO Daily April 09, 2023 1:00am November 02, 2024 2:02pmtraZODone hydrochloride 100 mg oral tablet (20 sources)Serotonin Reuptake InhibitorStart: 03-26-2019 End: 70-97-2894Fmkqrmmzb 100 mg tablet Discontinued March 26, 2019 1:00am March 26, 2019 6:06pmStart: 03-26-2019 End: 70-05-7507Msnlzgohk 100 mg tablet Discontinued TABLET March 26, 2019 12:00am March 26, 2019 5:06pmStart: 03-26-2019 End: 89-89-9447Dgvtbrwxw Discontinued TABLET March 26, 2019 12:00am March 26, 2019 5:06pmStart: 03-26-2019 End: 24-45-3579Mrofeltie Discontinued TABLET March 26, 2019 1:00am March 26, 2019 6:06pmStart: 36-46-5850jldo 1 tablet by mouth every twenty-four hourstraZODone [...] acetonide 40 mg/ml injectable suspension (10 sources)CorticosteroidStart: 37-70-9635Mgcimuq-40 May, 20 mgVibegron 75 MG tablet (3 sources)Start: 07-16-2024 End: 10-65-2535htsw 1 tablet by mouth once dailyVibegron 75 MG tablet Take 75 mg by mouth Daily 07/16/2024 08/11/2024 Discontinued (Cost of medication)Start: 98-85-5261koce 1 tablet by mouth once dailyVibegron 75 MG tablet Take 75 mg by mouth Daily 07/16/2024 Activevitamin b12 2 mg extended release oral tablet (20 sources)Vitamin W61Itbeq: 11-22-2021 End: 13-35-8448Aneqfutmwchakb (Vitamin B-12) (Vitamin B-12) 2,000 mcg Tablet Extended Release Discontinued 1000 MCG PO Daily 1 0 November 22, 2021 4:44pm April 09, 2023 10:46amStart: 03-23-2020 End: 12-04-1821bjsl 1 tablet by mouth once dailyCyanocobalamin (Vitamin [...] kidney; Translations: [Acute kidney failure, unspecified] Onset: 041235-84-1453HtifjqijTljcj cerebrovascular disease (20 sources)Cerebrovascular accident due to thrombus of left middle cerebral artery; Translations: [Cerebral infarction due to thrombosis of left middle cerebral artery]Onset: 666735-72-2542QdzcutcCxore cerebrovascular disease (1 source)Acute cerebrovascular diseaseOnset: 33-53-0357Aifyyyg disorders (20 sources)Mixed anxiety and depressive disorder; Translations: [Anxiety disorder, unspecified]Onset: 603024-55-3674BbrabiaSnuqoud dysrhythmias (20 sources)Bradycardia; Translations: [Bradycardia, unspecified]11-21-2021 EpisodicChronic kidney disease (1 source)Chronic kidney disease; Translations: [CHRONIC KIDNEY DISEASE STAGE 3A]Onset: 98-23-9002Pnrlfvdjtw heart failure; nonhypertensive (20 sources)Heart failure, unspecified; Translations: [Heart failure]Onset: 083946-06-0074CnpsjafPstwhcfu atherosclerosis and other heart disease (20 sources)Atherosclerotic heart disease of algaaciq coronary artery without angina pectoris; Translations: [Coronary atherosclerosis]Onset: 03-23-2020 ChronicDeficiency and other anemia (1 source)Iron deficiency anemia secondary to blood loss (chronic); Translations: [IRON DEFIC ANEMIA SEC BLD LOSS CHRN]Onset: 57-44-0871Fjiagox Deficiency and other anemia (16 sources)Anemia; Translations: [Anemia, unspecified]07-21-2990Nqmjntkm Delirium, dementia, and amnestic and other cognitive disorders (6 sources)Progressive aphasia; 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]60-27-7611Pgstdzw Disorders of lipid metabolism (20 sources)Hyperlipidemia; Translations: [Hyperlipidemia, unspecified]Onset: 120934-03-6606YggdnbfRonntknyw hypertension (20 sources)Hypertensive disorder; Translations: [Essential (primary) hypertension]Onset: 06-22-2009 Resolved: 729898-92-3121FjaeyciXxnyl and electrolyte disorders (2 sources)Hypokalemia; Translations: [Dehydration]Onset: 78-49-0856Roaepjgh Genitourinary symptoms and ill-defined conditions (20 sources)Incontinence without sensory awareness; Translations: [Overflow incontinence of urine]Onset: 22-48-2746QcqzywoUutwwvcr; including migraine (20 sources)Migraine with aura; Translations: [Migraine with aura, not intractable, without status migrainosus]Onset: 566637-27-8132Cxxtkie Headache; including migraine (20 sources)Cigsxvgd76-61-1530UnjmndxjElodydjb; including migraine (1 source)Headache; including migraine; Translations: [HEADACHE UNSPECIFIED] Onset: 60-01-4178Tdwde valve disorders (1 source)Nonrheumatic mitral (valve) insufficiency; Translations: [NONRHEUMATIC MITRAL INSUFFICIENCY]Onset: 37-51-2706RdrlkcyVmndeicvkwyg with complications and secondary hypertension (1 source)Hypertensive chronic kidney disease with stage 1 through stage 4 chronic kidney disease, or unspecified chronic kidney disease; Translations: [HTN CKD W/STAGE 1-4 CKD/UNS CKD]Onset: 38-80-9138WtonejrObjtjptyjqgdx and screening for infectious disease (3 sources)Contact with and (suspected) exposure to other viral communicable diseases; Translations: [Contact with or exposure to other viral diseases] 99-37-2737ZataxsjuDaibqpbawuhy injury (18 sources)History of traumatic brain injury; Translations: [Personal history of traumatic brain injury]25-97-3834TgtdagrnOlci effects of cerebrovascular disease (20 sources)History of cerebrovascular accident with residual deficit; Translations: [Unspecified sequelae of cerebral infarction]Onset: 02-20-2023 25-94-8264OhjfdomFjfqlyzosoadr mental health disorders (20 sources)Psychophysiologic insomnia; Translations: [Psychophysiologic insomnia]Onset: 267629-39-5449FpbatlhFmdj disorders (20 sources)Major depressive disorder, single episode, unspecified; Translations: [Recurrent major depression in full remission]Onset: 08-01-2021 Resolved: 151288-34-8219MtlfwmwAjicvpvtn or stenosis of precerebral arteries (20 sources)Bilateral stenosis of carotid arteries; Translations: [Occlusion and stenosis of bilateral carotid arteries]Onset: 02-24-2020 Resolved: 94-53-4379IukhuzwOgtzkvciisnmju (20 sources)Arthritis of hand; Translations: [Primary osteoarthritis, right hand]Onset: 04-09-2007 Resolved: 97-09-3964DerxqtcMsnfh aftercare (2 sources)Drug therapy finding; Translations: [Other terminal operator (current) drug therapy]83-75-4226RxlnnuveItzpc and ill-defined cerebrovascular disease (14 sources)Cerebrovascular disease; Translations: [Cerebrovascular disease, unspecified]ChronicOther and ill-defined cerebrovascular disease (1 source)Cerebrovascular disease, unspecified; Translations: [CEREBROVASCULAR DISEASE UNSPECIFIED]Onset: 85-83-0473EonulaoGnkin circulatory disease (20 sources)History of cardiovascular surgery; Translations: [Presence of other cardiac implants and grafts]Onset: 432596-03-4841EjpwpyzYjepl circulatory disease (7 sources)Stented artery; Translations: [Presence of other vascular implants and grafts]15-65-8331DczmhcpBhacd circulatory disease (2 sources)Presence of other vascular implants and grafts; Translations: [Other postprocedural status]83-19-6423AmtihkvXeztp circulatory disease (12 sources)History of cerebrovascular accident due to ischemia; Translations: [Personal history of transient ischemic attack (TIA), and cerebral 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]37-40-8216BvgpkhvpYuvfs connective tissue disease (1 source)Presence of right artificial knee joint; Translations: [PRESENCE RT ARTIFICIAL KNEE JOINT]Onset: 74-35-5559PhjnrbrVdkhh connective tissue disease (1 source)Presence of unspecified artificial knee joint; Translations: [PRESENCE UNS ARTIFICIAL KNEE JOINT]Onset: 79-47-9180LmazoalHrktd connective tissue disease (4 sources)Other specified soft tissue disorders; Translations: [OTHER SPEC SOFT TISSUE DISORDERS]Onset: 65-90-9940YmpgpxyoEtqzr diseases of bladder and urethra (3 sources)Urethral stricture; Translations: [Unspecified urethral stricture, female]Onset: 39-58-9568RnpnurklZoxas gastrointestinal disorders (16 sources)Dysphagia; Translations: [Dysphagia, unspecified]59-19-5957Dxofpzpc Other gastrointestinal disorders (1 source)Dysphagia, oropharyngeal phase; Translations: [Dysphagia, oropharyngeal phase]Onset: 73-53-6650ZggonulmMdhae hereditary and degenerative nervous system conditions (16 sources)Dystonia; Translations: [Dystonia, unspecified]96-01-3523Bhppzwy Other lower respiratory disease (2 sources)Shortness of breath; Translations: [Shortness of breath]Onset: 19-04-9598AqguqfcoPpfvt nervous system disorders (1 source)Difficulty in walking, not elsewhere classified; Translations: [DIFFICULTY IN WALKING NEC]Onset: 42-52-9328ZukiwcgFtysl nervous system disorders (1 source)Aphasia; Translations: [APHASIA]Onset: 22-04-1636QojqgpqYbwwg nervous system disorders (8 sources)Expressive dysphasia; Translations: [Aphasia]64-50-3940GcsblxrMskrr nervous system disorders (1 source)Aphasia; Translations: [Aphasia]30-93-4917SmyshihBzpmo nervous system disorders (1 source)Unspecified abnormalities of gait and mobility; Translations: [Unspecified abnormalities of gait and mobility]Onset: 11-88-6424MpuemitlVpdwq nervous system disorders (19 sources)Ataxia; Translations: [Ataxia, unspecified]19-28-6399ZxeopkjiQsrop nervous system disorders (11 sources)Abnormal gait; Translations: [Unsteadiness on feet]06-07-2024 EpisodicOther skin disorders (1 source)Localized swelling, mass and lump, left lower limb; Translations: [LOC SWELL MASS LUMP LT LOWER LIMB]Onset: 58-19-7826FjovdmesSacfybv cyst (7 sources)Unspecified ovarian cyst, unspecified side; Translations: [Unspecified ovarian cyst, right side]Onset: 48-87-5407CtykvvtnBpswkggtvh and visceral atherosclerosis (20 sources)Peripheral vascular disease, unspecified; Translations: [Peripheral vascular disease]Onset: 567946-27-3867WsmfhdaRrggknzn codes; unclassified (4 sources)Insomnia; Translations: [Other insomnia]96-14-5246TasvpiuStnixiud codes; unclassified (2 sources)Obstructive sleep apnea syndrome; Translations: [Obstructive sleep apnea (adult) (pediatric)]59-03-4433WvckrpnQrxfxmqr codes; unclassified (16 sources)Confusional state; Translations: [Disorientation, unspecified] 08-41-6065BmxlmepwApaizgyq codes; unclassified (15 sources)Altered mental status; Translations: [Altered mental status, unspecified]99-54-7034VggewzjfVbrmbpxt codes; unclassified (4 sources)Edema of lower extremity; Translations: [Localized edema]02-20-2024 EpisodicResidual codes; unclassified (1 source)Localized edema; Translations: [Edema]97-81-5883HsnnbrluFjsmbtlx codes; unclassified (10 sources)Memory impairment; Translations: [Other amnesia]13-13-3885Uuqwfjkm Residual codes; unclassified (2 sources)Staring; Translations: [Transient alteration of awareness]06-15-2024 EpisodicUnclassified (3 sources)COUGH, UNSPECIFIED; Translations: [COUGH, UNSPECIFIED]Onset: 23-11-3459Irwoplidhztx (1 source)CHRN KIDNEY DISEASE STG 3 UNSP; Translations: [CHRN KIDNEY DISEASE STG 3 UNSP]Onset: 37-25-4304Cxqtmxtu veins of lower extremity (18 sources)Varicose veins of lower extremity; Translations: [Varicose veins of bilateral lower extremities with other complications]Onset: 83-48-8015Fedfnkwx Viral infection (2 sources)COVID-19; Translations: [COVID-19]Onset: 09-07-2021 Resolved: 09-22-2021 Past or Other Problems Problem ClassificationProblemDateDocumented DateEpisodic/Chronic Administrative/social admission (20 sources)Other reduced mobility; Translations: [Impaired mobility and activities of daily living]Onset: 983990-73-3863FniyvwmoIwgnwxwul infection; unspecified site (8 sources)Infection due to ESBL bacteriaOnset: 559889-76-3660Pzflawiy Comment on above:ESBL E coli urineCalculus of urinary tract (1 source)Personal history of urinary calculi; Translations: [PERSONAL HISTORY OF URINARY CALCULI]Onset: 58-80-6832KivnypomCktbbtgvxn associated with dizziness or vertigo (20 sources)Dizziness and giddiness; Translations: [Dizziness and giddiness] Onset: 074518-68-3969VqkcuzgaBpmdfkuwts and other anemia (4 sources)Anemia, unspecified; Translations: [ANEMIA UNSPECIFIED]Onset: 97-98-8261MhrrmnorK Codes: Fall (2 sources)Fall on same level, unspecified, initial encounter; Translations: [Fall (on) (from) unspecified stairs and steps, initial encounter]Onset: 83-04-7887FzdpismxNxaqvnap of upper limb (6 sources)Other fractures of lower end of left radius, subsequent encounter for closed fracture with routine healing; Translations: [Unspecified fracture of the lower end of left radius, initial encounter for closed fracture]Onset: 04-03-2021 Resolved: 72-62-4673ScjfmldmAlxqityv of upper limb (3 sources)Nondisplaced fracture of proximal phalanx of right middle finger, initial encounter for closed fractureOnset: 07-12-2021 Resolved: 35-86-8567DaetwvyhSijomzzcogktlxhi hemorrhage (3 sources)Gastrointestinal hemorrhage, unspecified; Translations: [Melena] Onset: 90-42-2690CeizwmdkCgfvpgfaipjuq symptoms and ill-defined conditions (20 sources)Dysuria; Translations: [Dysuria]Onset: 2023 Resolved: 74-38-1517BvztxyqfEewdzdd and fatigue (5 sources)Weakness; Translations: [WEAKNESS]Onset: 93-77-8020MuqgfzjmWpvj disorders (20 sources)Mood disordersOnset: 08-25-2018 Resolved: Nausea and vomiting (1 source)Nausea with vomiting, unspecifiedOnset: 09-22-2021 Resolved: 08-73-2255RztoduugRuiyltrzokd deficiencies (20 sources)Deficiency of other specified B group vitamins; Translations: [Iron deficiency]Onset: 63-82-3646FqtwippjJrmfj aftercare (1 source)terminal operator (current) use of aspirin; Translations: [GROUP HOME CURRENT USE OF ASPIRIN]Onset: 58-20-7675KchyjqmvRjatj aftercare (1 source)Other group home (current) drug therapy; Translations: [OTH GROUP HOME CURRENT DRUG THERAPY]Onset: 12-24-3878AlclhwxyZvtly aftercare (1 source)Encounter for follow-up examination after completed treatment for conditions other than malignant neoplasm; Translations: [ENC F/U EX AFTR CMPL TX NOT MAL SU]Onset: 51-20-8844HwgmfsgaWbium aftercare (1 source)[facility] (current) use of antithrombotics/antiplatelets; Translations: [OPERATIONS RESEARCH MANAGER 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/ANTIPLATLETS]Onset: 13-02-0587Mzvscxic Other aftercare (20 sources)Post-discharge follow-up; Translations: [Encounter for follow-up examination after completed treatment for conditions other than malignant neoplasm]Onset: 03-06-2023 Resolved: 151269-94-8262SqzvbntlZqlpd circulatory disease (1 source)Personal history of transient ischemic attack (TIA), and cerebral 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; Translations: [PERS HX TIA AND CI NO RESID DEFICIT]Onset: 98-97-1559KdwdlyamRysxi connective tissue disease (3 sources)Pain in right handOnset: 07-12-2021 Resolved: 41-51-0689VuasjnlwDsiet connective tissue disease (20 sources)Spasm; Translations: [Other muscle spasm]Onset: EpisodicOther ear and sense organ disorders (20 sources)Acute otitis externa; Translations: [Diffuse otitis externa, bilateral]Onset: 2024 Resolved: 986247-20-5235NudgqehbSaagd gastrointestinal disorders (1 source)Bariatric surgery status; Translations: [BARIATRIC SURGERY STATUS] Onset: 74-32-2954CklkyoheBodrt gastrointestinal disorders (20 sources)Oropharyngeal dysphagia; Translations: [Dysphagia, oropharyngeal phase]Onset: 482367-43-6010HkdzbeerEqtrz gastrointestinal disorders (2 sources)Dysphagia, oral phase; Translations: [Dysphagia, oral phase]Onset: 38-03-3051ZtswywjjSdfjn injuries and conditions due to external causes (1 source)History of falling; Translations: [HISTORY OF FALLING]Onset: 94-77-8357ZcfpollmPttuy lower respiratory disease (1 source)Other nonspecific abnormal finding of lung field; Translations: [OTH NONSPECIFIC ABN FIND LNG FIELD]Onset: 57-36-8135ScvaegxhMbtkp nervous system disorders (20 sources)White matter disease; Translations: [White matter disease, unspecified]Onset: 62-44-7836LxgxntbcEnzsk nervous system disorders (20 sources)Dysarthria; Translations: [Dysarthria and anarthria]Onset: 374452-46-6625AqskiizdYtctn nervous system disorders (1 source)Functional gait abnormality; Translations: [Unspecified abnormalities of gait and mobility]67-78-2508HrindfdlXsspq non-traumatic joint disorders (3 sources)Pain in left wrist; Translations: [PAIN IN LEFT WRIST]Onset: 34-78-6998LzypewchSkvmb screening for suspected conditions (not mental disorders or infectious disease) (20 sources)Patient encounter status; Translations: [Encounter for screening for malignant neoplasm of colon]Onset: 592718-93-4590OhjglkixOhrdz upper respiratory disease (2 sources)Pain in throat; Translations: [Pain in throat]Onset: 09-11-2023 EpisodicOther upper respiratory infections (20 sources)Acute upper respiratory infection; Translations: [Acute upper respiratory infection, unspecified]Onset: 02-20-2023 Resolved: 707417-33-4125GwxbzzxyBiuyhavq codes; unclassified (5 sources)Other specified postprocedural statesOnset: 05-03-2021 Resolved: 64-60-2234NaxdrtwfOppxgqtu codes; unclassified (7 sources)Altered mental status, unspecified; Translations: [Altered mental status]Onset: 343334-30-6829NjpbnjuxSevshctc codes; unclassified (1 source)Acquired absence of other specified parts of digestive tract; Translations: [ACQ ABSENCE OTH PART DIGESTV TRACT]Onset: 81-76-0541Ctllxwrc Residual codes; unclassified (1 source)Acquired absence of both cervix and uterus; Translations: [ACQUIRED ABSENCE BOTH CERVIX AND UTERUS]Onset: 15-80-1002LvtrpnanKnpbswmp codes; unclassified (1 source)Sleep disorder, unspecified; Translations: [SLEEP DISORDER UNSPECIFIED]Onset: 45-93-1378OirpyyheInlfypfl codes; unclassified (3 sources)Disorientation, unspecified; Translations: [DISORIENTATION UNSPECIFIED]Onset: 92-73-2826VhujsfhpVnpfxbgs codes; unclassified (1 source)Pain, unspecified; Translations: [Pain, unspecified]Onset: 02-16-2023 EpisodicScreening and history of mental health and substance abuse codes (1 source)Personal history of nicotine dependence; Translations: [PERSONAL HISTORY OF NICOTINE DEPEND]Onset: 67-54-5828FbdtcuhlFkrdjedsjvu; intervertebral disc disorders; other back problems (1 source)Cervicalgia; Translations: [CERVICALGIA]Onset: 16-39-8004Xxzwhtvw Unclassified (1 source)COUGH, UNSPECIFIED; Translations: [COUGH, UNSPECIFIED]Onset: 00-03-4231Mefmxgobhcme (20 sources)Onset: 434148-34-9103Kmedgda tract infections (20 sources)Urinary tract infection, site not specified; Translations: [Urinary tract infectious disease]Onset: 11-28-2021 Resolved: 92-43-1478Ytlehtoi Results Test NameValueInterpretationReference RangeFacilityC Urineon 42-01-5957Zmfbqotj identified Cx Nom (U)Microbiology PROCEDURE: Urine Culture [R1] SOURCE: U Random BODY SITE: COLLECTED DATE/TIME: 11/17/2024 14:57 EDT RECEIVED DATE/TIME: 11/18/2024 17:21 EDT START DATE/TIME: 11/18/2024 17:21 EDT FREE TEXT SOURCE: Ingrid CHANNEL TURNER, AMBULATORY CARE COORDINATOR-C, Orvicky CHANNEL TURNER, AMBULATORY CARE COORDINATOR-C, Carmen X Carmen X FINAL REPORTS Final Report [] Verified Date/Time: 11/20/2024 10:56 EDT <10,000 cfu/ml Mixed skin contaminants Performing Locations R1: This test was performed at: [facility], [address] [place] [address], [id number] , , VxboqjKjdjecUniversity Hospitals Ahuja Medical CenterComment on above:Performed By: #### [id number] #### [facility] [address] [place] [id number] Office/Clinic Noteon 01-09-1440Rtafiuz Office/Clinic NoteUrology Office/Clinic Note Chief Complaint UTI symptoms HPI Staff Reberta is a 74yr old female presenting for [...] issues, which sounds like she is seeing [employer] for. Does mentionpossible EGD in future. She [...] with voice recognition artificial intelligence software, specifically [employer], [employer] and or [employer]. Substitutions may have occurred due to the [...] Tab, Chewed, Daily BACLOFEN (more content not included)...[facility]ja [facility] CenterComment on above:Result Comment: Electronically Signed By: MITRA Quintero APRN, Carmen Rm\.br\Date and Time Signed: 11/17/24 14:52 EDT\.br\Electronically Co-Signed By: Zeinab Downs\.br\Date and Time Co-Signed: 11/17/24 14:44 EDTUrology Office/Clinic Noteon 92-07-8358Vbdkofj Office/Clinic NoteUrology Office/Clinic Note Chief Complaint follow [...] with voice recognition artificial intelligence software, specifically [employer], [employer] and or [employer]. Substitutions may have occurred due to the [...] and denies UTI sxs since then Orders: 50922 Measure Post Void residual urine and/or bladder capacity by US- non-imaging Urnls Dip Stick Auto w/o Microscopy POC 83387 Follow-up With When Contact Information MITRA Quintero APRN, Carmen X, FAM, URL Additional Instructions: 4 [...] mg ER Tab, Oral, Daily Potassium Chloride (Qdh-Cnhq-Iat M10) 10 mEq oral tablet, extended release [...] Recorded influenza virus va (more content not included)...[facility] CenterComment on above:Result Comment: Electronically Signed By: MITRA Quintero APRN, Aurora X\.br\Date and Time Signed: 10/08/24 09:45 EDTMain OR Intraoperative Recordon 10-23-2296Mbuu OR Intraoperative RecordMain OR Intraoperative Record IntraOp Document Type FTURO Summary Primary Physician: Alexandr OVALLE MD Finalized Date/Time: 09/22/24 09:53:39 Pt. Name: BALTAOZZIEO.B./Sex: 1950 Female Med Rec #: [id number] Physician: Alexandr OVALLE MD Financial #: [id number] Pt. Type: O Room/Bed: / Admit/Disch: 09/22/24 09:00:56 - Institution: Case Times FTURO Entry 1 Patient Times In Room 09/22/24 09:29:00 Out Room 09/22/24 09:50:00 Procedure Times Start 09/22/24 09:42:00 Stop 09/22/24 09:45:00 Anesthesia Times Last Modified By: Eulalio BATISTA, Reina Matthew 09/22/24 09:45:52 General Comments: BOTOX LOT#: [id number], EXP DATE: 11/2026 -Elizabeth LINK RN Case Attendance FTURO Entry 1 Entry 2 Entry 3 Case Attendee Alexandr OVALLE MD, RN, Reina Stahl CST, Onelia Matthew Role Performed Surgeon - Primary Lard Maker - Primary Scrub - Primary Time In [...] Yes Primary Surgeon Alexandr OVALLE MD Start 09/22/24 09:42:00 Stop 09/22/24 09:45:00 Anesthesia Type [...] INCONTINENCE Outcomes Met? Yes Last Modified By: Eulalio BATISTA, Reina Matthew 09/22/24 09:33:14 Post-Care Text: The patient is [...] Out Alexandr OVALLE MD, Verified (If Participants Eulalio BATISTA, Reina Applicable) Favio Pepe CST, Kimberly A Time Out Complete 09/22/24 09:41:00 Allergies Reviewed? [...] Signatures Signed By: Reina Link RN 09/22/24 09:53NoPaulding County HospitalMain OR Preoperative Recordon 41-19-8959Maxk OR Preoperative RecordMain OR Preoperative Record Holding Area Document Type FTURO Summary Primary Physician: Alexandr OVALLE MD Finalized Date/Time: 09/22/24 09:40:20 Pt. Name: BALTAOZZIE/Sex: 1950 Female Med Rec #: [id number] Physician: Alexandr OVALLE MD Financial #: [id number] Pt. Type: O Room/Bed: / Admit/Disch: 09/22/24 [...] Complaints of Pain: No Skin Integrity Intact, [place], Warm, & Dry Vitals - EU Blood Pressure 144/75 Pulse 83 bpm Respirations 18 br/min SPO2 98 % Additional Other (See Comment) Specimens Comment ua dip Specimens Collected Last Modified By: Wendi Sesay LPN 09/22/24 09:35:12 Finalized By: Wendi Sesay LPN Document Signatures Signed By: Wendi Sesay LPN 09/22/24 09:40[facility] CenterOperative Reporton 37-85-0526Kcctmxcvg ReportOperative Report Patient: OZZIE GIFFORD Age: 74 [...] discharged home with antibiotic coverage, Follow up arranged.[facility] CenterComment on above:Result Comment: Electronically Signed By: VASQUEZ VIDES, Alexandr Banks.br\Date and Time Signed: 09/22/24 09:49 EDTC Urineon 35-29-7058Nziovrra identified Cx Nom (U)Microbiology PROCEDURE: Urine Culture [...] Locations R1: This test was performed at: [facility], [address] [place] [address], [address] [place] [address], UyfijySsdqknUniversity Hospitals Ahuja Medical CenterComment on above:Performed By: #### [id number] #### [facility] [address] [place] [id number] ECHO DOPPLER COMPLETEon 97-10-6295[place]vd[place]idott, [place] [address] Cardiology Report Signed Patient: OZZIE GIFFORD MR#: [id number] : 1950 Acct:[id number] Age/Sex: 74 / F ADM Date: 08/20/24 Loc: CARD Attending Dr: RUBEN SALVADOR Ordering Physician: RUBEN SALVADOR Date of Service: 08/20/24 Procedure(s): CA echo doppler complete Accession Number(s): [id number] cc: Cindy Collado RAIL SPECIALIST; RUBEN SALVADOR Patient Name: OZZIE GIFFORD MR#: [id number] : 1950 Exam Date: 08/20/2024 Ordering Doctor: [...] Area (VTI): 1.78 cm2, 1.78 cm2 Deceleration Ada: Pressure Half-Time: Peak Velocity(Antegrade Flow): 1.37 m/s Peak Gradient(Antegrade Flow): 7.52 mm[Hg] Mean Velocity(Antegrade Flow): 1.02 m/s Mean Gradient(Antegrade Flow): 4.60 mm[Hg] Velocity Time Integral: 37.24 cm Tricuspid Valve Peak Velocity (Regurgitant Flow): 2.49 m/s, 2.93 m/s Peak Velocity: Pulmonic Valve Mean Gradient: Mean Velocity: Peak Velocity: 0.78 m/s Peak Gradient: 2. (more content not included)...TBHRadiology, Radiologist, MD - 08/21/2024 [place] [address] Cardiology Report Signed Patient: OZZIE GIFFORD MR#: [id number] : 1950 Acct:[id number] Age/Sex: 74 / F ADM Date: 08/20/24 Loc: CARD Attending Dr: RUBEN SALVADOR Ordering Physician: RUBEN SALVADOR Date of Service: 08/20/24 Procedure(s): CA echo doppler complete Accession Number(s): [id number] cc: Cindy Collado RAIL SPECIALIST; RUBEN SALVADOR Patient Name: OZZIE GIFFORD MR#: [id number] : 1950 Exam Date: 08/20/2024 Ordering Doctor: [...] Area (VTI): 1.78 cm2, 1.78 cm2 Deceleration Ada: Pressure Half-Time: Peak Velocity(Antegrade Flow): 1.37 m/s [...] M.D. Signed By: 08/21/241828 DD/ 28 TD/TT: Machinist Outside: [facility]iteman Cancer CenterRadiology Study observation (narrative)[facility] Cancer CenterCA ECHO DOPPLER COMPLETEOrdered By: Radiologist Radiology on 64-78-2432ZMNX Altierre Work Phone: H&P Updateon 08-18-2024H&P UpdateH&P Update [...] procedure. Health Status Procedure history: Colonoscopy (procedure) (245142911) on 05/12/2021 at 70 Years. Knee replacement (047485029). Breast surgery (1035605515). Hysterectomy (172359206). Gastric bypass (3222900651). Social History Social & Psychosocial Habits Tobacco [...] procedure, # 2 tab(s), Refills(s) 0, Pharmacy: [facility], 160, cm,07/16/24 10:45:00 EDT, Height/Length Dosing, 61, kg, 07/16/24 10:45:0... Estrace 0.1 mg/g Cream: See Instructions, 42.5 gm, Refill(s) 6, apply a pea- sized amount vaginally and around the urethra nightly x 3 weeks, then 3x per week thereafter, [facility], 160, cm, 04/01/24 8:56:00 EST, Height/Length Dosing, 60, kg, 04/01/24 8:56:00... Myrbetriq 50 mg oral tablet, extended release: 50 mg = 1 tab(s), Oral, Daily, X 30 day(s), # 30 tab(s), Refills(s) 11, Pharmacy: [facility], 160, cm, 04/14/24 12:55:00 EST, Height/Length Dosing, 61, kg, 04/14/24 12:55:00 EST, Weight Dosing methenamine hippurate 1 g oral tablet: 1 gm = 1 tab(s), Oral, BID, X 30 day(s), # 60 tab(s), Refills(s) 11, Pharmacy: [facility], 160, cm, 04/14/24 12:55:00 EST, Height/Length Dosing,61, kg, 04/14/24 12:55:00 EST, Weight Dosing vibegron 75 mg oral tablet: 75 mg = 1 tab(s), Oral, Daily, # 30 tab(s), Refills(s) 11, Pharmacy: [facility], 160, cm, 04/14/24 12:55:00 EST, Height/Length Dosing, 61, kg, 04/14/24 12:55:00 EST, Weight Dosing Documented Medications Documented BACLOFEN 20MG TAB: BACLOFEN 20MG TAB ClonazePAM 0.5 mg Tab: Refills(s) 0 FeroSul 325 mg oral tablet: mg tab(s), Oral, TID, Refills(s) 0 Lasix 20 mg Tab: 10 mg = 0.5 tab(s), Oral, Daily Potassium Chloride (Ecz-Swgc-Rsi M10) 10 mEq oral tablet, extended release: [...] = 1 tab(s), Oral, Daily Potassium Chloride (Sgp-Mvuu-Ypa M10) 10 mEq oral tablet, extended release quetiapine 50 mg oral tablet rosuvastatin 20 mg Tab topiramate 50 mg Tab vibegron 75 mg oral tablet 75 mg = 1 tab(s), Oral, Daily Vitamin C See Instructions Problem list: All Problems Stroke / SNOMED CT 050477779 / Confirmed Headache / SNOMED CT 02399407 / Confirmed Hypertension / SNOMED CT 4235311809 / Confirmed Dysuria / SNOMED CT 07647022 / Confirmed Incontinence without sensory awareness / SNOMED CT 1036898276 / Confirmed White matter disease / SNOMED CT 7376025762 / Confirmed UTI (urinary tract infection) / SNOMED CT 450268231 / Confirmed Recurrent UTI / SNOMED CT 090693778 / Confirmed ESBL (extended spectrum beta-lactamase) producing bacteria infection / SNOMED CT 6321187274 / Confirmed ESBL E coli urine Canceled: Mixed incontinence / SNOMED CT 46871256, Active Problems (9) Dysuria ESBL (extended spectrum beta-lactamase) producing bacteria infection Headache Hypertension Incontinence without sensory awareness Recurrent UTI Stroke UTI (urinary tract infection) White matter diseaseNoPaulding County HospitalComment on above:Result Comment: Electronically Signed By: Alexandr OVALLE MD\.br\Date and Time Signed: 08/18/24 07:59 EDTMain OR Intraoperative Recordon 65-06-8105Qeyv OR Intraoperative RecordMain OR Intraoperative Record IntraOp Document Type FTURO Summary Primary Physician: Alexandr OVALLE MD Finalized Date/Time: 08/18/24 09:25:34 Pt. Name: DENISEOZZIE D.O.B./Sex: 1950 Female Med Rec #: [id number] Physician: Alexandr OVALLE MD Financial #: [id number] Pt. Type: O Room/Bed: / Admit/Disch: 08/18/24 08:24:19 - Institution: Case Times FTURO Entry 1 Patient Times In Room 08/18/24 09:00:00 Out Room 08/18/24 09:23:00 Procedure Times Start 08/18/24 09:05:00 Stop 08/18/24 09:10:00 Anesthesia Times Last Modified By: Florencio Lockwood Ii 08/18/24 09:25:32 Case Attendance FTURO Entry 1 Entry 2 Entry 3 Case Attendee Alexandr OVALLE MD, CST, Flroencio Zavala Ii Role Performed Surgeon - Primary Scrub - Primary Lard Maker - Primary Time In 08/18/24 09:00:00 08/18/24 [...] Prep Agents Betadine Solution Skin. Condition Intact, [place], Warm, & Description UNCHANGED Dry Additional None [...] Unfinalizing Freetext Reason for Unfinalizing 08/18/24 09:20 [id number] Modifying Existing DataUniversity Hospitals Ahuja Medical Center Main OR Preoperative Recordon 85-20-5816Anbl OR Preoperative RecordMain OR Preoperative Record Holding Area Document Type FTURO Summary Primary Physician: Alexandr OVALLE MD Finalized Date/Time: 08/18/24 08:55:13 Pt. Name: OZZIE WALKER/Sex: 1950 Female Med Rec #: [id number] Physician: Alexandr OVALLE MD Financial #: [id number] Pt. Type: O Room/Bed: / Admit/Disch: 08/18/24 08:24:19 - Institution: Case Times Holding FTURO Pre-Care Text: Verifies consent for planned procedure, identifies individual values and wishes concerning care, includes family members in perioperative teaching Secures patient's records' belongings, and valuables, maintains patient's dignity and privacy, and maintains patient confidentiality Entry 1 In Holding 08/18/24 08:50:00 Outcomes Met? Yes Last Modified By: MERLYN Yanes RN, Ruthann 08/18/24 08:50:31 Post-Care Text: The patient participates [...] Signed By: MERLYN Yanes RN, Ruthann 08/18/24 08:55[facility] Operative Reporton 50-47-5049Gxnfrjvhc ReportOperative Report Patient: OZZIE WALKER Age: 74 [...] urine. The Urethra was dilated to: 30 Citizen Of [place] w/ sounds, Due to atrophic vaginitis, the urethra bled from the dilation.. Devices Implanted: None. Removal: Cystoscope is removed, The patient tolerated it well. Postoperative Information Discharge: Patient is discharged home with antibiotic coverage, Follow up arranged. We will put her through urodynamics. 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..[facility]ja Medical CenterComment on above:Result Comment: Electronically Signed By: VASQUEZ VIDES, Alexandr Spicer\Date and Time Signed: 08/18/24 09:26 EDTNM KARSTEN PERF SPECT REST STRon 82-55-8345[place], [place] [address] Nuclear Medicine Report Signed Patient: OZZIE GIFFORD MR#: [id number] : 1950 Acct:[id number] Age/Sex: 74 / F ADM Date: 08/10/24 Loc: [place] Attending Dr: RUBEN SALVADOR Ordering Physician: RUBEN SALVADOR Date of Service: 08/10/24 Procedure(s): NM karsten perf SPECT rest str Accession Number(s): [id number] cc: Cindy Collado RAIL SPECIALIST; RUBEN SALVADOR Patient Name: OZZIE GIFFORD MR#: [id number] : 1950 Exam Date: 08/10/2024 Ordering Doctor: [...] the study was pending per attending physician [facility] . For more details please [...] Signed By: 08/11/24 1352 DD/ 1351 TD/TT: Machinist Outside:TBHRadiology, Radiologist, - 08/11/2024 [place] [address] Nuclear Medicine Report Signed Patient: OZZIE GIFFORD MR#: [id number] : 1950 Acct:[id number] Age/Sex: 74 / F ADM Date: 08/10/24 Loc: NM Attending Dr: RUBEN SALVADOR Ordering Physician: RUBEN SALVADOR Date of Service: 08/10/24 Procedure(s): NM karsten perf SPECT rest str Accession Number(s): [id number] cc: Cindy Collado RAIL SPECIALIST; RUBEN SALVADOR Patient Name: OZZIE GIFFORD MR#: [id number] : 1950 Exam Date: 08/10/2024 Ordering Doctor: [...] the study was pending per attending physician [facility] . For more details please [...] Signed By: 08/11/24 1352 DD/ 1351 TD/TT: Machinist Outside: [facility] HealthcareRadiology Study observation (narrative)[facility] Cancer CenterNM KARSTEN PERF SPECT REST STROrdered By: Radiologist Radiology on 50-77-1051UX[facility] Work Phone: Office Visiton 10-80-2621Itphmp-up [id number] Ozzie Gifford 1950 F Date Provider Department Center 07/22/2024 MelisaRUBEN SALVADOR [facility] Family History Problem Relation Age of Onset Hypertension Mother Hypertension Father Heart attack Brother Family Status - Relation Status Age at Mother Father Brother Level of Service:16140 CO OFFICE/OUTPATIENT ESTABLISHED MOD [facility]DM 30 [facility]Amb[facility] Summaryon 07-16-2024 Ambulatory Visit SummaryAmbulatory [...] mg ER Tab) potassium chloride (Potassium Chloride (Qte-Yzhq-Vdf M10) 10 mEq oral tablet, extended release) [...] BERNICE CLEMENTE PA-C Where: [facility] [place] [address]- Medications What How Much When Why Instructions New mirabegron (Myrbetriq 50 mg oral tablet, extended release) 1 Tablets By Mouth Every day Duration: 30 Days Refills: 11 Pickup at [facility] New vibegron (vibegron 75 mg oral tablet) 1 Tablets By Mouth Every day Refills: 11 Pickup at [facility] Unchanged amlodipine (amLODIPine 2.5 mg Tab) [...] or concerns Unchanged potassium chloride (Potassium Chloride (Inh-Otpx-Rks M10) 10 mEq oral tablet, extended release) Contact prescribing physician if questions or concerns Unchanged quetiapine (quetiapine 50 mg oral tablet) Contact prescribing physician if questions or concerns Unchanged rosuvastatin (rosuvastatin 20 mg Tab) Contact prescribing physician if questions or concerns Unchanged topiramate (topiramate 50 mg Tab) Contact prescribing physician if questions or concerns Pharmacy Information [facility]: [address], [place] [phone] What How Much When Why Comments Stop [...] you for choosing us for your care. [facility] InstituteUrology Office/Clinic Noteon 63-16-4578Bhxotbu Office/Clinic NoteUrology Office/Clinic Note Chief Complaint recheck UTI HPI Staff 73yr old female pt here for f/u to her UTI per pt Previous Dx: recurrent uti, incontinence without sensory awareness *Trospium 60mg qAM, estrogen cream q2 weeks, D-mannose, cranberry PVR: 01/29/24 - 19mL 04/01/24 - 24mL PVR today [...] been obtained. Will order Local anesthesia. Ordered: 61968 Measure Post Void residual urine and/or bladder capacity by US- non-imaging Body Mass Index (BMI) documented 3008F Current tobacco non-user 1036F Depression Screening Negative 3352F E&M of Est. Patient Moderate 30-39 Min 28344 Influenza immunization status assessed 1030F Medication list [...] Urnls Dip Stick Auto w/o Microscopy POC 22512 2. 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 Very bothersome. No improvement w Trospium. Will add Beta-3, either Myrbetriq or Gemtesa, whichever is covered/more affordable. Risks/benefits/side effects discussed. PVR 50ml Ordered: 31016 Measure Post Void residual urine and/or bladder capacity by US- non-imaging Body Mass Index (BMI) documented 3008F Current tobacco non-user 1036F Depression Screening Negative 3352F E&M of Est. Patient Moderate 30-39 Min 13999 Influenza immunization status assessed 1030F Medication list [...] Urnls Dip Stick Auto w/o Microscopy POC 17423 Orders: ciprofloxacin, 500 mg = 1 tab(s), Oral, Daily, Take 1 tablet the day before the procedure and 1 tablet after the procedure, # 2 tab(s), Refills(s) 0, Pharmacy: [facility], 160, cm, 07/16/24 10:45:00 EDT, Height/Length Dosing, 61, kg, 07/16/24 10:45:0... mirabegron, 50 mg = 1 tab(s), Oral, Daily, X 30 day(s), # 30 tab(s), Refills(s) 11, Pharmacy: [facility], 160, cm, 04/14/24 12:55:00 EST, Height/Length Dosing, 61, kg, 04/14/24 12:55:00 EST, Weight Dosing vibegron, 75 mg = 1 tab(s), Oral, Daily, # 30 tab(s), Refills(s) 11, Pharmacy: [facility], 160, cm, 04/14/24 12:55:00 EST, Height/Length Dosing, (more content not included)...[facility] Medical CenterComment on above:Result Comment: Electronically Signed By: BERNICE CLEMENTE PA-C\.br\Date and Time Signed: 07/16/2517:43 EDTC Urineon 80-71-2668Gfhuaemn identified Cx Nom (U)Microbiology PROCEDURE: Urine Culture [...] Locations R1: This test was performed at: [facility], [address] [place] [address], [address]- , , SniunvJvjbuwUniversity Hospitals Ahuja Medical CenterComment on above:Performed By: #### [id number] #### [facility] [address] [place] [address]VY CERVICAL SPINE WO/W CONon 52-24-5456Jnl[address] [address] Magnetic Resonance Report Signed Patient: OZZIE GIFFORD MR#: [id number] : 1950 Acct:[id number] Age/Sex: 74 / F ADM Date: 06/24/24 Loc: LAB Attending Dr: Jameson Mcleod NP Ordering Physician: Jameson Mcleod NP Date of Service: 06/24/24 Procedure(s): MR cervical spine wo/w con Accession Number(s): [id number] cc: Cindy Collado RAIL SPECIALIST; Jameson Mcleod NP [address] [address] Patient Name: OZZIE GIFFORD MRN: [id number] date: 1950 Sex: F Assigned Patient Location: LAB Current Patient Location: LAB Accession/Order Number: [id number] Exam Date: 06/24/2024 11:38 Report Date: 06/24/2024 [...] Sung M.D. 06/24/2024 11:50 AM Dictation Location: [place] [address] Electronically authenticated by: [id number] Y Date: 06/24/2024 11:50 Dictated By: Bambi Sung M.D. Signed By: 06/24/24 1152 DD/ 1150 TD/TT: Machinist Outside:TBHRadiology, Radiologist, - 06/24/2024 [place] [address] Magnetic Resonance Report Signed Patient: OZZIE GIFFORD MR#: [id number] : 1950 Acct:[id number] Age/Sex: 74 / F ADM Date: 06/24/24 Loc: LAB Attending Dr: Jameson Mcleod NP Ordering Physician: Jameson Mcleod NP Date of Service: 06/24/24 Procedure(s): MR cervical spine wo/w con Accession Number(s): [id number] cc: Cindy Collado NP; Jameson Mcleod NP The [address] [address] Patient Name: OZZIE GIFFORD MRN: [facility]:[id number] date: 1950 Sex: F Assigned Patient Location: LAB Current Patient Location: LAB Accession/Order Number: [id number] Exam Date: 06/24/2024 11:38 Report Date: 06/24/2024 [...] Sung M.D. 06/24/2024 11:50 AM Dictation Location: [place] [address] Electronically authenticated by: [id number] Y Date: 06/24/2024 11:50 Dictated By: Bambi Sung M.D. Signed By: 06/24/24 1152 DD/ 1150 TD/TT: Machinist Outside: [facility] HealthcareRadiology Study observation (narrative)[facility] CERVICAL SPINE WO/W CONOrdered By: Radiologist Radiology on 50-01-3749UZTJAlvin J. Siteman Cancer Center Work Phone: MRI HEAD/BRAIN WO/W CONTRon 51-99-9716[place]ryR[place]ott, [place] [address] Magnetic Resonance Report Signed Patient: OZZIE GIFFORD MR#: [id number] : 1950 Acct:[id number] Age/Sex: 74 / F ADM Date: 06/24/24 Loc: LAB Attending Dr: Jameson Mcleod NP Ordering Physician: Jameson Mcleod NP Date of Service: 06/24/24 Procedure(s): MR head/brain wo/w con Accession Number(s): [id number] cc: Cindy Collado RAIL SPECIALIST; Jameson Mcleod NP [place] [id number] Patient Name: OZZIE GIFFORD MRN: [id number] date: 1950 Sex: F Assigned Patient Location: LAB Current Patient Location: LAB Accession/Order Number: [id number] Exam Date: 06/24/2024 13:40 Report Date: 06/24/2024 [...] Sung M.D. 06/24/2024 1:48 PM Dictation Location: [place] [address] Electronically authenticated by: [id number] Y Date: 06/24/2024 13:48 Dictated By: Bambi Sung M.D. Signed By: 06/24/24 1357 DD/ 1348 TD/TT: Machinist Outside:TBHRadiology, Radiologist, - 06/24/2024 [place] [address] Magnetic Resonance Report Signed Patient: OZZIE GIFFORD MR#: [id number] : 1950 Acct:[id number] Age/Sex: 74 / F ADM Date: 06/24/24 Loc: LAB Attending Dr: Jameson Mcleod NP Ordering Physician: Jameson Mcleod NP Date of Service: 06/24/24 Procedure(s): MR head/brain wo/w con Accession Number(s): [id number] cc: Cindy Collado NP; Jameson Mcleod NP The [place] [id number] Patient Name: OZZIE GIFFORD MRN: [id number] date: 1950 Sex: F Assigned Patient Location: LAB Current Patient Location: LAB Accession/Order Number: [id number] Exam Date: 06/24/2024 13:40 Report Date: 06/24/2024 [...] Sung M.D. 06/24/2024 1:48 PM Dictation Location: [place] [address] Electronically authenticated by: [id number] Y Date: 06/24/2024 13:48 Dictated By: Bambi Sung M.D. Signed By: 06/24/24 135 DD/ 1348 TD/TT: Machinist Outside: [facility] HealthcareRadiology Study observation (narrative)University HospitalI HEAD/BRAIN WO/W CONTROrdered By: Radiologist Radiology on 02-30-8354GNYQAlvin J. Siteman Cancer Center Work Phone: [facility] CREATININEon 97-80-8439Orqadufodt [Mass/Vol]0.68 mg/dL0.55 - 1.02 mg/dLNOTwo Rivers Psychiatric HospitalGFR/1.73 sq M.predicted CKD-EPI (S/P/Bld) [Vol rate/Area]>60>=60 mL/min/1.73m 2NOMS [facility] HospitalTBH EGFR-NON AF LAO>60 >=60 mL/min/1.73m 2NOMS [facility] Memorial HospitalCLINISYNCNLakeland Regional HospitalALL CBC WITH AUTO DIFF on 61-86-3165ILVNOFZKD ABSOLUTE AUTO0.1NOMS HealthcareBasophils/100 WBC (Bld)0.9 %0.2 - 2.0 %NOMMercy Hospital SpringfieldEosinophils/100 WBC (Bld)4.3 %0.9 - 7.0 %[facility]item[facility] Cancer CenterErythrocyte distribution width (RBC) [Ratio]13.3 %11.0 - 15.0 %[facility]item[facility] Cancer CenterHematocrit (Bld) [Volume fraction]41.9 %36.0 - 48.0 %[facility] Hemoglobin (Bld) [Mass/Vol]14.2 g/dL12.0 - 16.0 g/dLAlvin J. Siteman Cancer CenterIMMATURE GRANULOCYTES ABS AUTO0.02NOTwo Rivers Psychiatric HospitalImmature granulocytes/100 WBC (Bld)0.3 % 0.0 - 0.5 %[facility] Cancer CenterInterpretation and review of laboratory results AbnormalNOTwo Rivers Psychiatric HospitalLYMPHOCYTES ABSOLUTE AUTO1.9NOMS [facility] Lymphocytes/100 WBC (Bld)25.5 %20.5 - 60.0 %[facility] HospitalH (RBC) [Entitic mass]30.7 pg26.7 - 34.0 pgBates County Memorial HospitalHC (RBC) [Mass/Vol]33.9 g/dL29.9 - 35.2 g/dLBates County Memorial HospitalV (RBC) [Entitic vol]90.5 fL81.0 - 99.0 fLAlvin J. Siteman Cancer CenterMONOCYTES ABSOLUTE AUTO0.6NOMS HealthcareMonocytes/100 WBC (Bld)8.2 % 1.7 - 12.0 %[facility] Cancer CenterNEUTROPHILS ABSOLUTE AUTO4.5NOTwo [facility] Neutrophils/100 WBC (Bld)60.8 %43.0 - 75.0 %NOMS HealthcarePlatelet mean volume (Bld) [Entitic vol]10.7 fL9.5 - 13.5 fLNOMS HealthcareTBH EO #0.3[facility] TBH OSB681DykNPFO HealthcareTBH RBC4.63NOMS HealthcareTBH WBC7.5[facility] CLINISYNCNOMS HealthcareC Urineon 36-71-6341Ksshdyto identified Cx Nom (U) Microbiology PROCEDURE: Urine [...] Locations R1: This test was performed at: [facility], [address] [place] [address], [facility]- , , TdamxlLvoswrPaulding County HospitalComment on above:Performed By: #### [id number] #### [facility] [address] [place], [place] [address]Laboratory - Microbiology and Antimicrobial susceptibility Ordered By: Laura Handley on 54-73-4793Tblrlrxc identified Cx Nom (U)10,000 cfu/ml Gram Negative Jose Blintze Roller speciesSumma Health Barberton CampusReminders on 91-09-7472XfgjoyfxuKrizgptfh From: Christina Saul To: EU - Administrative; Sent: 08/09/2023 10:15:11 EDT Show up: 04/13/2024 10:14:00 EST Subject: 1 yr f/u Due Date/Time: 07/14/2024 10:14:00 EDT Reminder/Recall patient seen on 07/15/2023. Patient needs a 1 yr f/u w/ PVR with AO in [place]. Appointment due by07/14/2024 Pt has been scheduled for 08/05/24.[facility] CenterUrology Office/Clinic Noteon 25-47-5078Aaegiju Office/Clinic NoteUrology Office/Clinic Note Chief Complaint urinary [...] incontinence Patient is accompanied with son 10/26/23 Bun/Practical Nurse Clinical Coordinator/GFR nl 1. Recurrent UTI (N39.0: Urinary tract [...] day(s), # 60 tab(s), Refills(s) 11, Pharmacy: [facility], 160, cm, 04/14/24 12:55:00 EST, Height/Length Dosing, 61, kg, 04/14/24 12:55:00EST, Weight Dosing Body Mass Index (BMI) documented 3008F Current tobacco non-user 1036F Depression Screening Negative 3352F E&M of Est. Patient Moderate 30-39 Min 71037 Influenza immunization status assessed 1030F Medication list [...] E&M of Est. Patient Moderate 30-39 Min 79079 Influenza immunization status assessed 1030F Medication list [...] Stick Auto w/o Microsco (more content not included)...[facility]ja Medical CenterComment on above:Result Comment: Electronically Signed By: Monserrat EDEN, Kori\.br\Date and Time Signed: 04/14/24 14:04 [facility] Urineon 91-51-0096Uzgkvsxd identified Cx Nom (U)Microbiology PROCEDURE: Urine Culture [...] Locations R1: This test was performed at: [facility], [address] [place] [address], [address] , , CdqrwvRrzalnPaulding County HospitalComment on above:Performed By: #### [id number] #### [facility] [address] [place], [place] [address]Aqparkpnhp Visit Summaryon 66-31-5384Pkbuvqezus Visit Summary Ambulatory Visit Summary OZZIE WALKER :1950 Visit Date:04/01/2024 Ambulatory Visit Instructions Your Diagnosis Recurrent UTI Incontinence without sensory awareness Your Care Team Attending Physician - BERNICE CLEMENTE PA-C Primary Care Physician - BARB VIDES, KAM This Is Your Medications List Misc Prescription (BACLOFEN 20MG TAB) amlodipine (amLODIPine 2.5 mg Tab) aspirin (aspirin 81 mg Chew Tab) ciprofloxacin (ciprofloxacin 500 mg Tab) clonazepam (ClonazePAM 0.5 mg Tab) estradiol topical (Estrace 0.1 mg/g Cream) ferrous sulfate (FeroSul 325 mg oral tablet) furosemide (Lasix 20 mg Tab) metoprolol (metoprolol 25 mg ER Tab) potassium chloride (Potassium Chloride (Lxi-Tjkt-Fuf M10) 10 mEq oral tablet, extended release) [...] What to do next Scheduled Follow-Up Appointments Saturday. 2024 11:20 AM EDT With: BERNICE CLEMENTE PA-C Where: [facility] [address] [place] [address]- You Need to Complete the Following Urine [...] then 3x per week thereafter Pickup at [facility] Unchanged amlodipine (amLODIPine 2.5 mg Tab) [...] TAB) 0 Unchanged potassium chloride (Potassium Chloride (Kdb-Keda-Ewy M10) 10 mEq oral tablet, extended release) Unchanged quetiapine (quetiapine 50 mg oral tablet) Unchanged rosuvastatin (rosuvastatin 20 mg Tab) Unchanged topiramate (topiramate 50 mg Tab) Unchanged trospium (trospium 60 mg oral capsule, extended release) 1 Capsules By Mouth Once a day (in the morning) Urinary incontinence without sensory awareness Duration: 90 Days Pharmacy Information [facility]: [address], [place] [phone] Allergies penicillin Problems Ongoing - Any problem [...] you for choosing us for your care. [facility] CenterUrology Office/Clinic Noteon 83-91-4269Vsagnuc Office/Clinic NoteUrology Office/Clinic Note Chief Complaint 2 [...] - tx w/ Bactrim x 10d 10/26/23 Bun/Practical Nurse Clinical Coordinator/GFR nl. TODAY: Pt started OTC UTI preventives after last visit as instructed. However had breakthrough UTI in Feb and infected again now. UA today shows trace ketones, traced- lysed blood, positive nits, large blood. Reviewed UA. Patientdoes reports some burning and pain while urinating. KUB 04/01/24 [facility] - independent review - I don't appreciate [...] Contact Information CORRIE EDEN, BERNICE Carias, URL [address] [facility] [place] [address] Additional Instructions: -Follow up in [...] mg ER Tab, Oral, Daily Potassium Chloride (Zpu-Babi-Lag M10) 10 mEq oral tablet, extended release quetiapine 50 mg oral tablet rosuvastatin 20 mg Tab topiramate 50 mg Tab trospium 60 mg oral capsule, extended release, 60 mg= 1 cap(s), Oral, qAM, 3 refills Allergies penicillin Social History Tobacco Never (less than 100 in lifetime) Tobacco Use:. Never Smokeless Tobacco Use:. Household toba (more content not included)...[facility] Comment on above:Result Comment: Electronically Signed By: BERNICE CLEMENTE PA-C\.br\Date and Time Signed: 04/01/2509:57 EST\.br\Electronically Co-Signed By: Judy Cool\.br\Date and Time Co-Signed: 04/01/24 10:32 ESTXR Abdomen 1 View on 12-11-8550DA Abdomen 1 ViewExam Date/Time: 04/01/2024 09:48 EST [...] Aneesh Bermudez M.D. Transcribed by: RUMA Technologist: [facility] HospitalC Urineon 32-46-9453Bmgxccsd identified Cx Nom (U)Microbiology PROCEDURE: Urine Culture [R1] SOURCE: U CleanCatch BODY SITE: COLLECTED DATE/TIME: 02/20/2024 11:30 EST RECEIVED DATE/TIME: 02/20/2024 18:39 EST START DATE/TIME: 02/20/2024 18:39 EST FREE TEXT SOURCE: CORRIE PA-BERNICE Vasquez PA-C, JENNIFER E FINAL REPORTS Final Report [...] Locations R1: This test was performed at: [employer], [address] [place] [address] [place], [address]- , [place], YaoxstTyhuktUniversity Hospitals Ahuja Medical CenterComment on above:Performed By: #### [id number] #### [facility] [address] [place] [address]GM ankle/arm indiceson 36-75-1746LT ankle/arm indicesOhioHealth Mansfield Hospital [facility] [address] [place] [address] Ultrasound Report Signed Patient: Ozzie Gifford MR#: [id number] : 1950 Acct:[id number] Age/Sex: 73 / F ADM Date: 02/20/24 Loc: [facility] Room: Type: [facility] Attending Dr: Denver Juarez MD Ordering [...] Denver Juarez MD02/21/2024 3:36 PM Dictation Location: [place] [address] Tech: Bernice Riggs Transcribed By: SHYANN 02/21/24 153 Dictated By: Denver Juarez MD 02/21/241534 Signed By: 02/21/24 1536[facility] Physician GroupUS carotid doppler BIon 03-50-3970RB carotid doppler [facility] [address] [place], [place] [address] Ultrasound Report Signed Patient: Ozzie Gifford MR#: [id number] : 1950 Acct:[id number] Age/Sex: 73 / F ADM Date: 02/20/24 Loc: [facility] Room: Type: [facility] Attending Dr: Denver Juarez MD Ordering [...] Denver Juarez MD02/21/2024 3:36 PM [facility] Tech: Ama Mcfarlane Transcribed By: [facility] 02/21/241535 Dictated By: Denver Juarez MD 02/21/241535 Signed By: 02/21/24 153[facility] Physician GroupURINALYSISOrdered By: SYSTEM SYSTEM on 75-72-2102Ipcveaso Auto Ql (U)2+ /HPFInvalid Interpretation Code Trace/HPFNORMAN [facility] UA Auto SSBilirubin Ql (U)NegativeNormalNegativemg/dLNORMAN REGIONAL [facility] UA Auto SSCalcium oxalate crystals Computer assisted Ql (U)Present graded/HPFInvalid Interpretation CodeNORMAN REGIONAL [facility]PLE[facility] UA Auto SSClarity (U)Turbid *ABN* (02/20/24 11:30 AM)Invalid Interpretation CodeClearFMERCY HOSPITAL [place] UA Auto SSColor (U)Yellow 1 (02/20/24 11:30 AM)NormalYellowNORMAN REGIONAL [facility]ALTHPLEX [facility] [place] UA Auto SSComment on above:Interpretive Data: Microscopic readings are only performed on those samples that meet specific criteria set forth by [facility].Epithelial cells.squamous Auto (Urine sed) [#/Area]3-4 graded/HPFInvalid Interpretation CodeFT UA Auto SSGlucose Ql (U)NegativeNormalNegativemg/dLNORMAN REGIONAL [facility] UA Auto SS Hemoglobin Auto test strip (U) [Mass/Vol]NegativeNormalNegativemg/dLFT UA Auto SSKetones Auto test strip Ql (U)NegativeNormalNegativemg/dLFT UA Auto SS Leukocyte esterase Auto test strip Ql (U)250 Flora/uL Flora/uLInvalid Interpretation CodeNegativeLeu/uLNOR[facility] UA Auto SSMucus Auto Ql (U)Trace graded/LPFNormal Negativegraded/LPFFTMC UA Auto SSNitrite Auto test strip Ql (U)2+ mg/dLInvalid Interpretation CodeNegativemg/dLNORMAN REGIONAL [facility]ALTHPLE[facility] UA Auto SSpH (U)5.5 *NA* (02/20/24 11:30 AM)Invalid Interpretation Code5.0 - 9.0[facility] UA Auto SSProtein Ql (U)NegativeNormalNegativemg/dLNORMAN REGIONAL [facility] UA Auto SSRBC Ql (U)0-3 graded/HPFNormal 0-3graded/HPFNORMAN REGIONAL [facility]PLE[facility] [place] UA Auto SSSpecific gravity (U) [Rel density]1.025 *NA* (02/20/24 11:30 AM)Invalid Interpretation Code1.005 - 1.030[facility] UA Auto SS Urobilinogen (U) [Mass/Vol]NegativeNormalNegativemg/dLNORMAN REGIONAL [facility] UA Auto SSWBC Auto (Urine sed) [#/Area]31-75 graded/HPFInvalid Interpretation Code0-5graded/HPFNORMAN REGIONAL [facility]PLE[facility] UA Auto SSURINALYSISOrdered By: Niurka Canas on 96-09-5338GH Spec Desc Clean Catch (02/20/24 11:30 AM)NormalNORMAN REGIONAL [facility] UA Auto SSUrinalysis with Microon 36-81-4350Cfakuuti Auto Ql (U)2+ /HPFAbnormalTraceSumma Health Akron CampusComment on above: Performed By: #### [id number] #### [facility] [address], [place] [address]Rwnqurdah Ql (U)NegativeNormalNegativeSumma Health Akron CampusComment on above:Performed By: #### [id number] #### [facility] [address], [place] [address]Ewilehf oxalate crystals Computer assisted Ql (U)Present AbnormalSumma Health Akron CampusComment on above:Performed By: #### [id number] #### [facility] [address], [place] [address]Avgndkz (U)TurbidAbnormalClearFLancaster Municipal Hospital Comment on above:Performed By: #### [id number] #### [facility] [address], [place] [address]Npsfp (U)YellowNormalYellowSumma Health Akron CampusComment on above:Result Comment: Microscopic readings are only performed on those samples that meet specific criteria set forth by [facility].Performed By: #### [id number] #### [facility] [address], [place] [address]Rmhyboshge cells.squamous Auto (Urine sed) [#/Area]3-4Invalid Interpretation CodeSumma Health Akron CampusComment on above:Performed By: #### [id number] #### [facility] [address], [place] [address]Ilhudse Ql (U)NegativeNormalNegUniversity Hospitals Ahuja Medical Center Comment on above:Performed By: #### [id number] #### [facility] [address], [place] [address]Zorzmotmsc Auto test strip (U) [Mass/Vol]NegativeNormalNegative [facility] CampusComment on above:Performed By: #### [id number] #### [facility] [address], [place] [address]Dlnetmx Auto test strip Ql (U)NegativeNormalNegUniversity Hospitals Ahuja Medical CenterComment on above:Performed By: #### [id number] #### [facility] [address], [place] [address]Azhucrukn esterase Auto test strip Ql (U)250 Flora/uLAbnormal NegativeSumma Health Akron CampusComment on above:Performed By: #### [id number] #### [facility] [address], [place] [address]Cxflz Auto Ql (U)TraceNormalNegUniversity Hospitals Ahuja Medical Center Comment on above:Performed By: #### [id number] #### [facility] [address], [place] [address]Xtszric Auto test strip Ql (U)2+ mg/dLAbnormalNegUniversity Hospitals Ahuja Medical CenterComment on above:Performed By: #### [id number] #### [facility] [address] [place] [address]cN (U)5.5 [pH]Invalid Interpretation Code5.0-9.0[facility] CampusComment on above:Performed By: #### [id number] #### [facility] [address] [place] [address]Mjayksc Ql (U)NegativeNormalNegUniversity Hospitals Ahuja Medical Center Comment on above:Performed By: #### [id number] #### [facility] [address] [place] [address]VLY Ql (U)9-0Cllujz1-0SuchrtLancaster Municipal HospitalComment on above:Performed By: #### [id number] #### [facility] [address] [place] [address]Mzwvrikw gravity (U) [Rel density]1.025Invalid Interpretation Code1.005-1.030[facility] CampusComment on above:Performed By: #### [id number] #### [facility] [address] [place] [address]Wehaulxnurtu (U) [Mass/Vol]NegativeNormalNegUniversity Hospitals Ahuja Medical CenterComment on above:Performed By: #### [id number] #### [facility] [address] [place] [address]DNI Auto (Urine sed) [#/Area]55-38Xmqrjtcl5-8JloexfLancaster Municipal HospitalComment on above:Performed By: #### [id number] #### [facility] [address] [place] [address]Rkbm of Urine collection methodClean CatchNormBrown Memorial HospitalComment on above:Performed By: #### [id number] #### [facility] [address] [place] [address]Eauumfnpwa Visit Summaryon 02-80-2806Tkmiectlkr Visit Summary Ambulatory Visit Summary OZZIE WALKER [...] mg ER Tab) potassium chloride (Potassium Chloride (Lid-Qwwo-Urv M10) 10 mEq oral tablet, extended release) quetiapine (quetiapine 50 mg oral tablet) rosuvastatin (rosuvastatin 20 mg Tab) topiramate (topiramate 50 mg Tab) trospium (trospium 60 mg oral capsule, extended release) Procedures Performed Breast surgery, Gastric bypass, Hysterectomy, Knee replacement. What to do next Scheduled Follow-Up Appointments Saturday 8:40 AM EST With: BERNICE CLEMENTE PA-C Where: [facility] [address] [place] [address]- Medications What How Much When Why Instructions [...] TAB) 0 Unchanged potassium chloride (Potassium Chloride (Qgt-Pstk-Kwf M10) 10 mEq oral tablet, extended release) [...] you for choosing us for your care. [facility] Medical CenterNo Panel Informationon 42-18-0020VGZOZYRGHJUQPF EPIDERMIDIS, HAEMOLYTICUS, LUGDUNENSIS, SAPROPHYTICUS (LXMPT4GJLC HealthcareSTAPHYLOCOCCUS EPIDERMIDIS, HAEMOLYTICUS, LUGDUNENSIS, SAPROPHYTICUS (URINANot detectedNOMS HealthcareURINARY TRACT INFECTION (HTRX)on 40-48-1531LBNFLXCTNLSZT WQIFFSUL4YIKK HealthcareACINETOBACTER BAUMANIINot detectedNOMS HealthcareCANDIDA ALBICANS, PARAPSILOSIS, XNKEPBPPHR7MIBY HealthcareCANDIDA ALBICANS, PARAPSILOSIS, TROPICALISNot detectedNOMS Healthcare EVANGELINA PBXSGKHH9VWHW HealthcareCANDIDA GLABRATANot detectedNOMS Healthcare EVANGELINA NUXNNC4SGYZ HealthcareCANDIDA KRUSEINot detectedNOMS Healthcare CITROBACTER YNJXOPCS0IXBL HealthcareCITROBACTER FREUNDIINot detectedNOMS HealthcareCTX-M1 (15), M2 (2), M9 (9), M8-25 IJMRGZ75.764AbnormalNOMS Healthcare CTX-M1 (15), M2 (2), M9 (9), M8-25 GROUPSDetectedAbnormalNOMS HealthcareDFR (A1, A5), SUL (1,2)18.626AbnormalNOMS HealthcareDFR (A1, A5), SUL (1,2)Detected AbnormalNOMS HealthcareENTEROBACTER AEROGENES, GGDOIIA9KURI Healthcare ENTEROBACTER AEROGENES, CLOACAENot detectedNOMS HealthcareENTEROCOCCUS FAECALIS, KUOYWTI9KQIP HealthcareENTEROCOCCUS FAECALIS, FAECIUMNot detectedNOMS Healthcare ESCHERICHIA COLI20.787AbnormalNOMS HealthcareESCHERICHIA COLIDetectedAbnormal NOMS HealthcareInterpretation and review of laboratory resultsAbnormalNOMS HealthcareKLEBSIELLA PNEUMONIAE, OPTMFPQ5SPHL HealthcareKLEBSIELLA PNEUMONIAE, OXYTOCANot detectedNOMS HealthcareMORGANELLA GATRVJNE7CXLG HealthcareMORGANELLA MORGANIINot detectedNOMS HealthcarePROTEUS MIRABILIS, NCBGHITS8QMOI Healthcare PROTEUS MIRABILIS, VULGARISNot detectedNOMS HealthcarePSEUDOMONAS AERUGINOSA0 NOMS HealthcarePSEUDOMONAS AERUGINOSANot detectedNOMS HealthcareSERRATIA KBTHNMBFZS1LGSX HealthcareSERRATIA MARCESCENSNot detectedNOMS HealthcareSHV, KPC MMJJYH81.606AbnormalNOMS HealthcareSHV, [facility] GROUPSDetectedAbnormalNOMS HealthcareSTAPHYLOCOCCUS UNWWJI6IRAU HealthcareSTAPHYLOCOCCUS AUREUSNot detected NOMS HealthcareSTREPTOCOCCUS AGALACTIAE (GROUP B STREP)29.666AbnormalNOMS HealthcareSTREPTOCOCCUS AGALACTIAE (GROUP B STREP)DetectedAbnormalNOMS HealthcareSTREPTOCOCCUS PYOGENES (GROUP A STREP)0NOMS HealthcareSTREPTOCOCCUS PYOGENES (GROUP A STREP)Not detectedNOMS HealthcareNOMS HealthcareUrinalysis macro (dipstick) panel (U)on 45-12-0756Xtscyogoy, UA2+Negative - 4(70) +++ mg/dL NOMS HealthcareBlood, UAPositiveNegative - 50 Joesph/mcLNOMS HealthcareClarity, UA ClearNOMS HealthcareColor, UAYellowNOMS HealthcareGlucose, UANegativeNegative - 2000(110) ++++ mg/dLNOMS HealthcareInterpretation and review of laboratory resultsAbnormalNOMS HealthcareKetones, UANegativeNegative - 160(16) ++++ mg/dL NOMS HealthcareLeukocytes, UAPositiveNegative - 500+++ Flora/mcLNOMS Healthcare Nitrite, UANegativeNegative - PositiveNOMS HealthcarepH, UA55 - 9N[facility]S Healthcare Protein, UAPositiveNegative - 2000(20) ++++ mg/dLNOMS HealthcareSpec Grav, UA 1.0151 - 1.03NOMS HealthcareUrobilinogen, UA0.20.2 - 12 mg/dLNOMS HealthcareNOMS HealthcareTBH UA (CLEAN/CATCH) MICROSCOPIC IF INDICATEon 01-61-5678TVGRPHVCK URINENegativeNEGATIVENOMS HealthcareBLOOD URINENegativeNEGATIVENOMS Healthcare Clarity (U)CLEARCLEARNOMS HealthcareColor (U)YELLOWYELLOWNOIA HealthcareGLUCOSE URINE UANegativeNEGATIVE mg/dLNOIA HealthcareInterpretation and review of laboratory resultsAbnormalNOMS HealthcareKetones Ql (U)NegativeNEGATIVE mg/dL NOMS HealthcareLeukocyte esterase Test strip Ql (U)SMALLAbnormalNEGATIVENOMS HealthcareNITRITE URINEPositiveAbnormalNEGATIVENOIA HealthcarepH (U)6.5 [pH]5.0 - 9.0NOIA HealthcarePROTEIN URINENegativeNEG/TRACE mg/dLNOIA HealthcareSPECIFIC GRAVITY URINE1.0201.005 - 1.025NOIA HealthcareURINE MICROSCOPIC INDICATEDYESNOIA HealthcareUROBILINOGEN URINE1.0 EU/dL0.2 - 1.0 EU/dLNOIA HealthcareCLINISYNC NOMS HealthcareALL CBC WITH AUTO DIFFon 80-72-7190AIBBFZFNV ABSOLUTE AUTO0.1NOMS HealthcareBasophils/100 WBC (Bld)1.0 %0.2 - 2.0 %NOMS HealthcareEosinophils/100 WBC (Bld)9.8 %High0.9 - 7.0 %NOM HealthcareErythrocyte distribution width (RBC) [Ratio]12.7 %11.0 - 15.0 %NOMS HealthcareHematocrit (Bld) [Volume fraction]44.3 %36.0 - 48.0 %NOM HealthcareHemoglobin (Bld) [Mass/Vol]14.4 g/dL 12.0 - 16.0 g/dLNOIA HealthcareIMMATURE GRANULOCYTES ABS AUTO0.01NOMS Healthcare Immature granulocytes/100 WBC (Bld)0.2 %0.0 - 0.5 %NOM HealthcareInterpretation and review of laboratory resultsAbnormalNOIA HealthcareLYMPHOCYTES ABSOLUTE AUTO1.7NOTwo Rivers Psychiatric HospitalLymphocytes/100 WBC (Bld)34.6 %20.5 - 60.0 %NOMMercy Hospital SpringfieldMCH (RBC) [Entitic mass]29.1 pg26.7 - 34.0 pgNOTwo Rivers Psychiatric HospitalMCHC (RBC) [Mass/Vol]32.5 g/dL29.9 - 35.2 g/dLNOTwo Rivers Psychiatric HospitalMCV (RBC) [Entitic vol]89.7 fL 81.0 - 99.0 fLNOMS HealthcareMONOCYTES ABSOLUTE AUTO0.4NOMS Healthcare Monocytes/100 WBC (Bld)7.6 %1.7 - 12.0 %NOMS HealthcareNEUTROPHILS ABSOLUTE AUTO 2.3NOMS HealthcareNeutrophils/100 WBC (Bld)46.8 %43.0 - 75.0 %NOMS Healthcare Platelet mean volume (Bld) [Entitic vol]9.9 fL9.5 - 13.5 fLNOMS HealthcareTBH EO #0.5NOMS HealthcareTBH LNU038DbnABXP HealthcareTBH RBC4.94NOMS HealthcareTBH WBC 4.9NOMS HealthcareCLINISYNCNOMS HealthcareOffice Visiton 81-47-9046Okfykx-up [id number] Ozzie Gifford 1950 F Date Provider Department Center 09/11/2023 RUBEN MARCANO [facility] Family History Problem Relation Age of Onset Hypertension Mother Hypertension Father Heart attack Brother Family Status - Relation Status Age at Mother Father Brother Level of Service:68333 CO OFFICE/OUTPATIENT ESTABLISHED MOD MDM 30 [facility] HospitalRF videography Hypopharynx and Esophagus Views for swallowing function W speech and W barium contrast [place] 80-03[place], [place] [address] Fluoroscopy Report Signed Patient: OZZIE GIFFORD MR#: [id number] : 1950 Acct:[id number] Age/Sex: 73 / F ADM Date: 08/26/23 Loc: [place] Attending Dr: Shaikh Barb Krueger Ordering Physician: Shaikh Pati Day Date of Service: 08/26/23 Procedure(s): [place] modified barium swallow Accession Number(s): [id number] cc: Shaikh Pati Day [place] [address] Patient Name: OZZIE GIFFORD MRN: [id number] date: 1950 Sex: F Assigned Patient Location: [place] Current Patient Location: [place] Accession/Order Number: [id number] Exam Date: 08/26/2023 10:00 Report Date: 08/26/2023 [...] Signed By: 08/26/23 1055 DD/ 1053 TD/TT: Machinist Outside:TBHRadiology, Radiologist, MD - 08/26/2023 [place] [address] Fluoroscopy Report Signed Patient: OZZIE GIFFORD MR#: [id number] : 1950 Acct:[id number] Age/Sex: 73 / F ADM Date: 08/26/23 Loc: [place] Attending Dr: Shaikh Barb Krueger Ordering Physician: Shaikh Pati Day Date of Service: 08/26/23 Procedure(s): FL modified barium swallow Accession Number(s): [id number] cc: Shaikh Pati Day The [place] [id number] Patient Name: OZZIE GIFFORD MRN: [id number] date: 1950 Sex: F Assigned Patient Location: [place] Current Patient Location: [place] Accession/Order Number: [id number] Exam Date: 08/26/2023 10:00 Report Date: 08/26/2023 [...] Signed By: 08/26/23 1055 DD/ 1053 TD/TT: Machinist Outside: [facility]iteman Cancer CenterRadiology Study observation (narrative)Al[facility] Siteman Cancer CenterRF videography Hypopharynx and Esophagus Views for swallowing function W speech and W barium contrast POOrdered By: Radiologist Radiology on 40-71-6776LTCR Altierre Work Phone: ambulatory Visit Summaryon 15-83-4370Avnmftxhyi Visit SummaryAmbulatory Visit Summary OZZIE WALKER Odette :1950 Visit Date:08/21/2023 Ambulatory Visit Instructions Your [...] mg ER Tab) potassium chloride (Potassium Chloride (Ill-Fiwh-Ujc M10) 10 mEq oral tablet, extended release) [...] Schedule the Following Appointments Follow Up with CORRIE EDEN, MAXIMINO YAN When: Only if needed Where: [address] [place] [address] Business (1) Medications What How [...] or concerns Unchanged potassium chloride (Potassium Chloride (Dkn-Mmkx-Gsq M10) 10 mEq oral tablet, extended release) [...] take the entire prescrip (more content not included)...[facility] Medical CenterUrology Office/Clinic Noteon 65-18-9943Vkflqoa Office/Clinic NoteUrology Office/Clinic Note Chief Complaint OV [...] as planned for incontinence w AO. Ordered: 13934 Measure Post Void residual urine and/or bladder capacity by US- non-imaging E&M of Est. Patient Low 20-29 Min 48147 Urnls Dip Stick Auto w/o Microscopy POC 27503 Follow-up With When Contact Information BERNICE CLEMENTE PA-C, URL Only if needed [address] [place] [address] Business (1) Additional Instructions: Patient Education Antibiotic Medicine, [...] mg ER Tab, Oral, Daily Potassium Chloride (Ybh-Wpdf-Ryd M10) 10 mEq oral tablet, extended release [...] Protein Urine Dipstick: Negative (08/21/23 13:18:00) Specific [place] Urine Dipstick: 1.020 (08/21/23 13:18:00) Urine Appearance Urine Dipstick: Clear (08/21/23 13:18:00) Urine Color Urine Dipstick: Yellow (08/21/23 13:18:00) Urobilinogen Urine Dipstick: Normal 0.2-1 EU/dl (08/21/23 13:18:00) pH Urine Dipstick: 5 (08/21/23 13:18:00)NormalSumma Health Akron CampusComment on above:Result Comment: Electronically Signed By: BERNICE CLEMENTE PA-C\Date and Time Signed: 08/20/2412:54 EDTC Urineon 91-19-2572Gtytmikf identified Cx Nom (U)Microbiology PROCEDURE: Urine Culture [R1] SOURCE: U CleanCatcb BODY SITE: COLLECTED DATE/TIME: 07/15/2023 13:56 EDT RECEIVED DATE/TIME: 07/15/2023 18:58 EDT START DATE/TIME: 07/15/2023 18:58 EDT FREE TEXT SOURCE: Orvicky CHANNEL TURNER, AMBULATORY CARE COORDINATOR-C, Orvicky CHANNEL TURNER, AMBULATORY CARE COORDINATOR-C, Carmen X Carmen X FINAL REPORTS Final [...] Locations R1: This test was performed at: [facility], [address] [place] [address], [address] [place] [address], QogvzsKcwtpsUniversity Hospitals Ahuja Medical CenterComment on above:Performed By: #### [id number] #### [facility] [address] [place], [place] [address]Ambulatory Visit Summaryon 27-56-7919Rxrbpeslst Visit Summary OZZIE WALKER :1950 Visit Date:07/15/2023 Ambulatory Visit Instructions Your Diagnosis Dysuria Incontinence without sensory awareness White matter disease UTI (urinary tract infection) Your Care Team Attending Physician - MITRA Quintero APRN, Carmen Rm Primary Care Physician - SHAIKH DAY MD This Is Your Medications List [facility] Pres[facility] (BACLOFEN 20MG TAB) amlodipine (amLODIPine 2.5 mg Tab) aspirin (aspirin 81 mg Chew Tab) clonazepam (ClonazePAM 0.5 mg Tab) ferrous sulfate (FeroSul 325 mg oral tablet) furosemide (furosemide 40 mg Tab) metoprolol (metoprolol 25 mg ER Tab) potassium chloride (Potassium Chloride (Twk-Fkuz-Cnr M10) 10 mEq oral tablet, extended release) [...] TAB) 0 Unchanged potassium chloride (Potassium Chloride (Ojo-Cnoc-Rlp M10) 10 mEq oral tablet, extended release) [...] you for choosing us for your care. [facility]huja Medical CenterPatient Educationon 07-15-2023 Patient EducationObstetrics and Gynecology Urinary [...] this condition includes: ? Antibiotic medicine. ? Hyya-ymt-uuszevq medicines to treat discomfort. ? Drinking enough [...] these instructions at home: Medicines ? Take dsaz-bwb-qrnzmkd and prescription medicines only as told by [...] Document Revie (more content not included)...Normal [facility] Orthopaedic InstituteUrology Office/Clinic Noteon 28-16-7843Thciqvv Office/Clinic NoteChief Complaint Pt is here for [...] with voice recognition artificial intelligence software, specifically [employer], [employer] and or [employer]. Substitutions may have occurred due to the [...] # 14 cap(s), Refills(s) 0, Pharmacy: [facility] #[id number], 160, cm, 07/15/23 12:40:00 EDT, Height/Length Dosing, 60, kg, 06/03/24 12:40:00 EDT, Weight Dosing 2. 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 She is tolerating it well without side effects. Refill sent to pharmacy. -Continue timed voids, voiding maneuvers -Follow-up 1 year for med recheck, sooner if needed Urinary incontinence without sensory awareness Ordered: trospium, 60 mg = 1 cap(s), Oral, qAM, X 90 day(s), # 90 cap(s), Refills(s) 3, Pharmacy: [facility] #[id number], 160, cm, 07/15/23 12:40:00 EDT, Height/Length Dosing, 60, kg, 07/15/23 12:40:00 EDT, Weight Dosing trospium, 60 mg = 1 cap(s), Oral, qAM, X 90 day(s), # 90 cap(s), Refills(s) 0, Pharmacy: [facility] #[id number], 160, cm, 03/07/23 10:58:00 EST, Height/Length Dosing, 60, kg, 03/07/23 10:58:00 EST, Weight Dosing 01714 Measure Post Void residual urine and/or bladder capacity by US- non-imaging 3. White matter disease (R90.82: White matter disease, unspecified) [facility] inpatient stay 03/01/23 - for head stuff per patient. CT brain w/o con 03/01/23 - stable atrophy and white matter disease [1] Patient is here with her today, states that she is following with neurology regarding her memory and worsening ambulation. Ordered: 84109 Measure Post Void residual urine and/or bladder capacity by US- non-imaging Orders: Urnls Dip Stick Auto w/o Microscopy POC 87625 Follow-up With When Contact Information MITRA Quintero APRN, Carmen Rm, FAM, URL Additional Instructions: 1 yr w/ PVR Patient Education Urinary Tract Infection, Adult Urinary Incontinence Problem List/Past Medical History Ongoing Dysuria Headache Hypertension Incontinence without sensory awareness Strok (more content not included)...[facility]huja Medical CenterComment on above:Result Comment: Electronically Signed By: MITRA Quintero APRN, [place] X\.br\Date and Time Signed: 07/15/23 13:40 EDTLaboratory - Chemistry and Chemistry - challengeon 44-60-6774Mizhkmcpp Ql (U)NegativeSouthwest General Health CenterGlucose (U) [Mass/Vol]NegativeSouthwest General Health Center Ketones Ql (U)traceSouthwest General Health CenterpH (U)5.5 [pH]Parkview Healthpecific gravity (U) [Rel density]1.025Southwest General Health CenterUrobilinogen (U) [Mass/Vol]0.2 mg/dLSouthwest General Health CenterLaboratory - Specimen informationon 01-63-1644Hzhvnwsgjv (U)clearSouthwest General Health CenterColor (U)darkyellowSouthwest General Health Center Laboratory - Urinalysison 93-29-5010Syczrimri esterase Test strip Ql (U)small [facility] CenterNitrite Ql (U)PositiveSouthwest General Health CenterProtein Ql (U)NegativeSouthwest General Health CenterNo Panel Informationon 75-85-0380Kfkih Occult BloodNegativeSouthwest General Health CenterUrine Cultureon 97-46-7299Xqyqjjqo identified Cx Nom (U)ORGANISM: Gram Negative Bacilli (O:GNB) Garwin Count >100,000 PERFORMED BY: [place] [address] PATHOLOGIST CONTACT FINGER ASSEMBLER YOCASTA BYRNE M.D.Paulding County HospitalComment on above: Performed By: #### CUU #### [place] [address] USAUrine culture routineon 33-06-8500Fsvbmhwn identified Cx Nom (U)Klebsiella pneumoniaeAbnormalSouthwest General Health CenterBasophils Auto (Bld) [#/Vol]Ordered By: Nakul Nazario on 82-54-2426Grurkqtip (Bld) [#/Vol]0.0 10*3/uL0.0-0.2FMercy Health Lorain HospitalBasophils/100 WBC Auto (Bld)Ordered By: Nakul Nazario on 68-56-9341Tflawionk/100 WBC (Bld)0.8 %. [facility] Health CenterBlood activated clotting time by coagulation assayOrdered By: Denver Juarez on 53-76-4617YHO Coag (Bld)298 s90-139 [facility] Health CenterComment on above:Reference Range: 90-139 (Non-heparinized)Calcium [Mass/volume] in Serum or PlasmaOrdered By: Nakul Nazario on 43-47-4257Kreqvbd [Mass/Vol]9.3 mg/dL8.6-10.3FMercy Health Lorain HospitalCarbon dioxide, total [Moles/volume] in Serum or PlasmaOrdered By: Nakul Nazario on 31-56-4490NJ2 [Moles/Vol]29.4 mmol/L21.0-31.0South[facility] Health CenterChloride [Moles/volume] in Serum or PlasmaOrdered By: Nakul Nazario on 06-50-9277Vedtamvi [Moles/Vol]110 mmol/X42-271LwdbdchtjSouthwest General Health CenterCreatinine [Mass/volume] in Serum or PlasmaOrdered By: Nakul Nazario on 15-79-9232Jnkjqarajg [Mass/Vol]0.81 mg/dL0.60-1.20South[facility] Health CenterEosinophils Auto (Bld) [#/Vol]Ordered By: Nakul Nazario on 69-94-1761Pxnxfjxktue (Bld) [#/Vol]0.4 10*3/uL0.0-0.45South[facility] General Health CenterEosinophils/100 WBC Auto (Bld)Ordered By: Nakul Nazario on 50-37-4597Rmiksboxpwl/100 WBC (Bld)6.8 %.[facility] Health CenterErythrocyte distribution width Auto (RBC) [Ratio]Ordered By: Nakul Nazario on 30-60-0576Yjiiioptkur distribution width (RBC) [Ratio]13.7 %11.9-15.3 [facility] CenterGlucose [Mass/volume] in Serum or PlasmaOrdered By: Nakul Nazario on 78-54-3642Vxzhoux [Mass/Vol]77 mg/jM52-860RfoeawedfSouthwest General Health CenterComment on above:ADA recommended reference rangeRandom Glucose Reference Range is dependent on time and content of last meal. Glucose of more than 200 mg/dL in a nonstressed, ambulatory subject supports the diagnosisof Diabetes Mellitus.Hematocrit Auto (Bld) [Volume fraction]Ordered By: Nakul Nazario on 45-51-1495Zgzyrzmycv (Bld) [Volume fraction]44.3 %34.0-46.4 [facility] CenterHemoglobin [Mass/volume] in BloodOrdered By: Nakul Nazario on 65-40-4136Fduuvxclur (Bld) [Mass/Vol]15.2 g/dL11.8-15.4 [facility] Health CenterLeukocytes [#/volume] corrected for nucleated erythrocytes in Blood by Automated counOrdered By: Nakul Nazario on 91-02-6539KKT corrected for nucl RBC Auto (Bld) [#/Vol]5.5 10*3/uL3.8-11.6 [facility] Health CenterLymphocytes Auto (Bld) [#/Vol]Ordered By: Nakul Nazario on 35-04-6489Uqpsypixbay (Bld) [#/Vol]1.4 10*3/uL1.00-4.8 [facility] Health CenterLymphocytes/100 WBC Auto (Bld)Ordered By: Nakul Nazario on 05-40-8329Xlrxjyhedft/100 WBC (Bld)25.9 %.[facility] Auto (RBC) [Entitic mass]Ordered By: Nakul Nazario on 42-66-5517TFA (RBC) [Entitic mass]29.6 pg24.7-34.3FMercy Hospital Auto (RBC) [Mass/Vol]Ordered By: Nakul Nazario on 70-34-8555PXPJ (RBC) [Mass/Vol]34.3 g/dL32.0-35.0South[facility] Health CenterMCV Auto (RBC) [Entitic vol]Ordered By: Nakul Nazario on 43-12-6823VZQ (RBC) [Entitic vol]86.4 fR81-691JmzsqugvtSouthwest General Health CenterMonocytes Auto (Bld) [#/Vol]Ordered By: Nakul Nazario on 77-37-3911Jddddbbhy (Bld) [#/Vol] 0.4 10*3/uL0.0-0.8South[facility] Health CenterMonocytes/100 WBC Auto (Bld) Ordered By: Nakul Nazario on 55-67-0390Tmfvisuxr/100 WBC (Bld)7.8 %. [facility] Health CenterNeutrophils Auto (Bld) [#/Vol]Ordered By: Nakul Nazario on 73-52-8724Biypqkdwrkx (Bld) [#/Vol]3.2 10*3/uL1.8-7.7 [facility] Health CenterNeutrophils/100 WBC Auto (Bld)Ordered By: Nakul Nazario on 92-85-5473Nuyyfqhhqrq/100 WBC (Bld)58.7 %.[facility] Health CenterNo Panel InformationOrdered By: Nakul Nazario on 41-36-5410Xkbbqtnqa GFR (CKD-EPI)> 60.0 mL/MinSouthwest General Health Center Pharmacy Creatinine Clearance (Chem51.50[facility] Nucleated erythrocytes [Presence] in Blood by Automated countOrdered By: Nakul Nazario on 62-30-8027Ntpnbhgvv RBC Auto Ql (Bld)0.2 /100{WBC}0-0.5 [facility] Health CenterPlatelet mean volume Auto (Bld) [Entitic vol] Ordered By: Nakul Nazario on 74-88-8498Rjmvypog mean volume (Bld) [Entitic vol]7.8 fL6.3-10.7FMercy Health Lorain HospitalPlatelets Auto (Bld) [#/Vol] Ordered By: Nakul Nazario on 35-24-4591Dpyodhlpm (Bld) [#/Vol]185 10*3/uL 150-450Southwest General Health CenterPotassium [Moles/volume] in Serum or PlasmaOrdered By: Nakul Nazario on 96-69-3362Udsdvhode [Moles/Vol]3.2 mmol/L 3.5-5.1FMercy Health Lorain HospitalRBC Auto (Bld) [#/Vol]Ordered By: Nakul Nazario on 91-97-5238VUS (Bld) [#/Vol]5.12 10*6/uL3.60-5.00Parkview Healtherum or plasma anion gap determinationOrdered By: Nakul Nazario on 98-82-7512Qdyum gap [Moles/Vol]9.8 mmol/L6.0-15.0Parkview Healthodium [Moles/volume] in Serum or PlasmaOrdered By: Nakul Nazario on 98-47-7807Vuzfix [Moles/Vol]146 mmol/W410-329McuetjtbpSouthwest General Health CenterUrea nitrogen [Mass/volume] in Serum or PlasmaOrdered By: Nakul Nazario on 39-80-7906Wamk nitrogen [Mass/Vol]16 mg/dL7-25South[facility] General Health CenterWBC Auto (Bld) [#/Vol]Ordered By: Nakul Nazario on 65-07-9981OEW (Bld) [#/Vol]5.5 10*3/uL3.8-11.6FMercy Health Lorain Hospital Formson [id number]#1.00TIFFNormal [facility] CampusPhysician Referralon 34-21-2690Yoelwioqa Referral [id number]#1.00TIFFNormalSumma Health Akron CampusAmbulatory Visit Summaryon 49-39-9098Dannwaiabl Visit Summary OZZIE WALKER :1950 Visit Date:03/07/2023 [...] mg ER Tab) potassium chloride (Potassium Chloride (Qfl-Aafz-Zzz M10) 10 mEq oral tablet, extended release) [...] TAB) 0 Unchanged potassium chloride (Potassium Chloride (Pgx-Pskr-Wey M10) 10 mEq oral tablet, extended release) [...] you for choosing us for your care. [facility] Medical CenterPatient Educationon 03-07-2023 Patient EducationUrology Urinary Incontinence Urinary [...] nerve stimulation). ? For women, using a center medical and lab director to prevent urine leaks. This is a [...] skin from urine. ? (more content not included)...NormalFisher [facility] Orthopaedic InstituteUrology Office/Clinic Noteon 80-88-9253Veujoir Office/Clinic NoteChief Complaint Distribution Warehouse Manager for incontinence HPI Staff Brandie is a [...] historian. Pt states she walked here from [place] in the rain. Genitourinary: Flank Pain: none. [...] 60 mg ER QD. Rx sent to [facility]. -f/u 6-8 weeks for med recheck and PVR. Ordered: trospium, 60 mg = 1 cap(s), Oral, qAM, X 90 day(s), # 90 cap(s), Refills(s) 0, Pharmacy: [id number] #[id number], 160, cm, 03/07/23 10:58:00 EST, Height/Length Dosing, 60, kg, 03/07/23 10:58:00 EST, Weight Dosing 2. UTI (urinary tract infection) (N39.0: Urinary tract infection, site not specified) recently dx by PCP [facility] 02/23/23 - 100 k E. coli, treated w/ macrobid. However, pt did have short inpatient stay during course (UA negative at [facility]) and pt states she has a [...] disease, unspecified (R90.82: White matter disease, unspecified) [facility] inpatient stay 03/01/23 - for head stuff per patient. CT brain w/o con 03/01/23 - stable atrophy and white matter disease Pt not able to answer questions directly in visit today. States she walked to [employer] office from [place]. Poor historian. Orders: 18713 Measure Post Void residual urine and/or bladder capacity by US- non-imaging Urnls Dip Stick Auto w/o Microscopy POC 70744 Follow-up With When Contact Information Orzech CHANNEL TURNER, AMBULATORY CARE COORDINATOR-C, Carmen X, FAM, URL In 8 weeks [...] mg ER Tab, Oral, Daily Potassium Chloride (Xum-Blhp-Aeg M10) 10 mEq oral tablet, extended release [...] 10:47:00) Blood Urine Di (more content not included)...[facility] Comment on above:Result Comment: Electronically Signed By: MITRA Quintero APRN, Carmen Rm\.br\Date and Time Signed: 03/07/23 14:30 ESTCardiac echo study Procedureon 76-34-7310[place], [place] [address] Cardiology Report Signed Patient: OZZIE GIFFORD MR#: [id number] : 1950 Acct:[id number] Age/Sex: 72 / F ADM Date: 03/01/23 Loc: CARD Attending Dr: DIANA DOZIER Ordering Physician: DIANA DOZIER Date of Service: 03/01/23 Procedure(s): CA echo w/ con Accession Number(s): [id number] cc: DIANA DOZIER Shaikh M.D. Patient Name: OZZIE GIFFORD MR#: [id number] : 1950 Exam Date: 03/01/2023 Ordering Doctor: DIANA DOZIER ECHOCARDIOGRAM REPORT PROCEDURE: CA ECHO W/ CON [...] Pressure: 29.95 ml, 29.95 ml Dictated by: Ruben Salvador M.D. on 03/01/2023 at 18:22 Approved by: Ruben Salvador M.D. on 03/01/2023 at 18:27 Dictated By: RUBEN SALVADOR Signed By: 03/01/23 6629 (more content not included)...TBHRadiology, Radiologist, - 03/01/2023 [place] [address] Cardiology Report Signed Patient: OZZIE GIFFORD MR#: [id number] : 1950 Acct:[id number] Age/Sex: 72 / F ADM Date: 03/01/23 Loc: CARD Attending Dr: DIANA DOZIER Ordering Physician: DIANA DOZIER Date of Service: 03/01/23 Procedure(s): CA echo w/ con Accession Number(s): [id number] cc: DIANA DOZIER ; Shaikh Pati Day Patient Name: OZZIE GIFFORD MR#: [id number] : 1950 Exam Date: 03/01/2023 Ordering Doctor: DIANA DOZIER ECHOCARDIOGRAM REPORT PROCEDURE: CA ECHO W/ CON [...] Pressure: 29.95 ml, 29.95 ml Dictated by: Ruben Salvador M.D. on 03/01/2023 at 18:22 Approved by: Ruben Salvador M.D. 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 Outside: [facility] HealthcareRadiology Study observation (narrative)[facility] HealthcareCardiac echo study ProcedureOrdered By: Radiologist Radiology on 94-27-9198[facility] Work Phone: Urinalysis - AUTOMATEDon 10-83-7378Htftqscpiv (U) [employer] Other Bilirubin Ql (U)Remote Assistant Other Color (U)[employer] Other Glucose Ql (U)Remote Assistant Other Hemoglobin Ql (U)Remote Assistant Other Ketones Ql (U)Remote Assistant Other Leukocyte esterase Test strip Ql (U)NegativeBlanding [employer] Other Nitrite Ql (U)NegativeBlanding [employer] Other pH (U)6.0 [pH][employer] Other Protein Ql (U)NegativeNeuralieve Other Specific gravity (U) [Rel density]1.030Nosaint joseph [facility] [employer] Other Urobilinogen (U) [Mass/Vol]1.0 mg/dLBlanding [employer] Other Urinalysis - AUTOMATEDBlanding [employer] Other ECHOCARDIO M/2D COMPLETEon 98-03-1326TFHYMBXVFD M/2D COMPLETEPatient: OZZIE GIFFORD Exam Date: 02/21/2022 : 1950 Gender:F Ordering : DIANA DOZIER Admission #: [id number] Family : SHAIKH Korina DAY . Order #: [id number] CLICK HERE TO VIEW EXAM ECHOCARDIOGRAM REPORT [...] by: Jacklyn Doty M.D. on 02/22/2022 at 13:00[facility] HospitalVC COMP CONSULTATIONon 27-00-1489JF COMP CONSULTATIONPatient: OZZIE GIFFORD Exam Date: 02/20/2022 : 1950 Gender:F Ordering : SHAIKH Korina DAY . 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 The patient [...] by: Natacha Santana MD on 02/20/2022 at 11:35[facility] HospitalVC VENOUS REFLUX IAN LMTon 51-16-0401ZT VENOUS REFLUX IAN LMTPatient: OZZIE GIFFORD Exam Date: 02/20/2022 : 1950 Gender:F Ordering : SHAIKH Korina DAY . Admission #: [id number] Family : DR NATACHA SANTANA M.D. Order #: [id number] CLICK HERE TO VIEW EXAM RADIOLOGY REPORT [...] thrombus visualized Compressibility: Normal Flow: Normal Account Planner: Dist/med calf 2.5mm with 0s reflux. Mid/med [...] by: Natacha Santana MD on 02/20/2022 at 10:30[facility] HospitalUS JANETTE DOP LEG LTon 53-74-3325RJ JANETTE DOP LEG LTINDICATION: Disorder of soft [...] Electronically authenticated by: INDRA LOZADA Date: 2022-01-31 18:39[facility] Valley HospitalBNPon 30-17-2398Klzxcpwawsn peptide B (Bld) [Mass/Vol]552.0 pg/mLNormal<=900.0The CentervilleComment on above:Performed By: #### ERUR #### [facility] [address] [place] [address] Dr. Grzegorz Hurley AUTO DIFFon 97-54-3171QBEV #0.1 103/ulNormal0.0-0.1Detwiler Memorial HospitalComment on above:Performed By: #### CBC #### [facility] [address] [place] [address] Dr. Grzegorz WangBasophils/100 WBC (Bld)0.9 %Normal0.2-2.0The [place] Comment on above:Performed By: #### CBC #### [facility] [address] [place] [address] Dr. Grzegorz Tellez #0.3 103/ulNormal0.0-0.7The CentervilleComment on above: Performed By: #### CBC #### [facility] [address] [place] [address] Dr. Grzegorz Reisosinophils/100 WBC (Bld)5.5 %Normal0.9-7.0The [place] Comment on above:Performed By: #### CBC #### [facility] [address] [place] [address] Dr. Grzegorz Reisrythrocyte distribution width (RBC) [Ratio]13.7 %Urqabi38.0-15.0 The CentervilleComment on above:Performed By: #### CBC #### [facility] [address] [place] [address] Dr. Grzegorz WangHematocrit (Bld) [Volume fraction]41.1 %Piyvwy34.0-48.0The CentervilleComment on above:Performed By: #### CBC #### [facility] [address] [place] [address] Dr. Grzegorz WangHemoglobin (Bld) [Mass/Vol]13.4 g/kTUokgzj40.0-16.0The CentervilleComment on above:Performed By: #### CBC #### [facility] [address] [place] [address] Dr. Grzegorz WangIG #0.01 10e3/ulNormal0.00-0.03The CentervilleComment on above:Performed By: #### CBC #### [facility] [address] [place] [address] Dr. Grzegorz WangIG %0.2 %Normal0.0-0.5The CentervilleComment on above: Performed By: #### CBC #### [facility] [address] [place] [address] Dr. Grzegorz FinleyMPH #1.8 103/ulNormal1.2-3.8The CentervilleComment on above:Performed By: #### CBC #### [facility] [address] [place] [address] Dr. Grzegorz Finleymphocytes/100 WBC (Bld)29.9 %Fqrlyj03.5-60.0The CentervilleComment on above:Performed By: #### CBC #### [facility] [address] [place] [address] Dr. Grzegorz Bowers DIFF REQNONormalThe CentervilleComment on above: Performed By: #### CBC #### [facility] [address] [place] [address] Dr. Grzegorz Finley (RBC) [Entitic mass]28.2 dvLzymsm47.7-34.0The CentervilleComment on above:Performed By: #### CBC #### [facility] [address] [place] [address] Dr. Grzegorz Finley (RBC) [Mass/Vol]32.6 g/vYKhivlc15.9-35.2The CentervilleComment on above:Performed By: #### CBC #### [facility] [address] [place] [address] Dr. Grzegorz Finley (RBC) [Entitic vol]86.5 dIAgoklo99.0-99.0The CentervilleComment on above:Performed By: #### CBC #### [facility] [address] [place] [address] Dr. Grzegorz Wild #0.7 103/ulNormal0.3-0.8The CentervilleComment on above:Performed By: #### CBC #### [facility] [address] [place] [address] Dr. Grzegorz Lemusocytes/100 WBC (Bld)11.1 %Normal1.7-12.0[facility] [place] Comment on above:Performed By: #### CBC #### [facility] [address] [place] [address] Dr. Grzegorz Parada #3.1 103/ulNormal1.4-6.5The CentervilleComment on above:Performed By: #### CBC #### [facility] [address] [place] [address] Dr. Grzegorz Omerutrophils/100 WBC (Bld)52.4 %Otgzwr91.0-75.0The CentervilleComment on above:Performed By: #### CBC #### [facility] [address] [place] [address] Dr. Grzegorz WangPlatelet mean volume (Bld) [Entitic vol]9.6 fLNormal9.5-13.5[facility] on above:Performed By: #### CBC #### [facility] [address] [place] [address] Dr. Grzegorz WangPLT162 103/fkJqwqpo268-804Hhc [facility]ervilleComtr[facility] on above: Performed By: #### CBC #### [facility] [address] [place] [address] Dr. Grzegorz WangRBC4.75 106/ulNormal4.20-5.40The [facility]ervilleComtr[facility] on above:Performed By: #### CBC #### [facility] [address] [place] [address] Dr. Grzegorz WangWBC5.9 103/ulNormal4.0-11.0The [facility]ervilleComtr[facility] on above: Performed By: #### CBC #### [facility] [address] [place] [address] Dr. Grzegorz WangPROF 14(COMP METB)on 37-20-6196Tygonoc [Mass/Vol]3.4 g/dLNormal 3.4-5.0The [facility]ervilleComtr[facility] on above:Performed By: #### ERUR #### [facility] [address] [place] [address] Dr. Grzegorz WangAlbumin/Globulin [Mass ratio]1.0 {ratio}NormalThe CentervilleComtr[facility] on above:Performed By: #### ERUR #### [facility] [address] [place] [address] Dr. Grzegorz Oleary [Catalytic activity/Vol]102 U/FIlwodc98-603Rfx [facility] on above:Performed By: #### ERUR #### [facility] [address] [place] [address] Dr. Grzegorz CovarrubiasT [Catalytic activity/Vol]16 U/HNwwtva99-42Dhu [facility]Com[facility] on above:Performed By: #### ERUR #### [facility] [address] [address] [address] Grzegorz Ortegaon gap [Moles/Vol]10.6 mmol/LNormalThe [place] Comment on above:Performed By: #### ERUR #### [facility] [address] [address] [address] Grzegorz WangAST [Catalytic activity/Vol]18 U/AAbhres95-60Esd CentervilleComment on above:Performed By: #### ERUR #### [facility] [address] [address] [address] Grzegorz WangBilirubin [Mass/Vol]0.4 mg/dLNormal0.2-1.0[facility] [place] Comment on above:Performed By: #### ERUR #### [facility] [address] [place] [address] Dr. Grzegorz WangCalcium [Mass/Vol]9.0 mg/dLNormal8.5-10.1[facility] Comment on above:Performed By: #### ERUR #### [facility] [address] [place] [address] Dr. Grzegorz WangChloride [Moles/Vol]103 mmol/BHfweku95-315PskDetwiler Memorial Hospital Comment on above:Performed By: #### ERUR #### [facility] [address] [place] [address] Dr. Grzegorz WangCO2 [Moles/Vol]31.4 mmol/CQdxjzs07.0-32.0[facility] Comment on above:Performed By: #### ERUR #### [facility] [address] [place] [address] Dr. Grzegorz WangCreatinine [Mass/Vol]0.80 mg/dLNormal0.55-1.02The CentervilleComment on above:Performed By: #### ERUR #### [facility] [address] [address] [address] Lantigua ChangEGFR-AF LAO>60Normal>=60The CentervilleComment on above:Performed By: #### ERUR #### [facility] [address] [address] [address] Grzegorz ReisGFR-NON AF LAO>60Normal>=60The CentervilleComment on above:Performed By: #### ERUR #### [facility] [address] [address] [address] Grzegorz WangGlobulin (S) [Mass/Vol]3.4 g/dLNormKettering Health DaytonComment on above:Performed By: #### ERUR #### [facility] [address] [address] [address] Grzegorz WangGlucose [Mass/Vol]78 mg/eKAscdzp88-466QmoDetwiler Memorial Hospital Comment on above:Performed By: #### ERUR #### [facility] [address] [place] [address] Dr. Grzegorz WangPotassium [Moles/Vol]3.0 mmol/LCritically low3.5-5.1The CentervilleComment on above:Performed By: #### ERUR #### [facility] [address] [address] [address] Grzegorz WangProtein [Mass/Vol]6.8 g/dLNormal6.4-8.2[facility] Comment on above:Performed By: #### ERUR #### [facility] [address] [address] [address] Grzegorz WangSodium [Moles/Vol]142 mmol/IPohzld246-266IolDetwiler Memorial Hospital Comment on above:Performed By: #### ERUR #### [facility] [address] [address] [address] Grzegorz WangUrea nitrogen [Mass/Vol]14.0 mg/dLNormal7.0-18.0The CentervilleComment on above:Performed By: #### ERUR #### [facility] [address] [place] [address] Dr. Grzegorz WangUrea nitrogen/Creatinine [Mass ratio]17.5 mg/mgNormalThLima Memorial HospitalComment on above:Performed By: #### ERUR #### [facility] [address] [address] [address] Grzegorz Ruiz JANETTE DOP LEG LTon [id number] JANETTE DOP LEG LTEXAM: US JANETTE DOP [...] Electronically authenticated by: MIRI BALTAZAR Date: 2022-01-22 16:38[facility] HospitalLIPID PROFILEon [id number]-HDL RATIO NORMSEE BELOWBlanchard Valley Health System Blanchard Valley HospitalComment on above:Result Comment: 3.3 - 4.4 LOW RISK 4.4 - 7.1 AVERAGE RISK 7.1 - 11.0 MODERATE RISK >11.0 HIGH RISKPerformed By: #### PALOMA, LIPA #### [facility] [address] [place] [address] Dr. Grzegorz Guyesterol [Mass/Vol]125 mg/dLNormal<=200[facility] Comment on above:Performed By: #### PALOMA, LIPA #### [facility] [address] [address] [address] Grzegorz WangCholesterol in HDL [Mass/Vol]69 mg/dLCritically egro63-45Sck CentervilleComment on above:Performed By: #### PALOMA, LIPA #### [facility] [address] [address] [address] Grzegorz WangCholesterol in LDL [Mass/Vol]40.0 mg/dLBlanchard Valley Health System Blanchard Valley HospitalComment on above:Performed By: #### PALOMA, LIPA #### [facility] [address] [address] [address] Grzegorz Diaz.total/Cholesterol in HDL [Mass ratio]1.8 {ratio} NormalThe CentervilleComment on above:Performed By: #### PALOMA, LIPA #### [facility] [address] [address] [address] Grzegorz Fernández NORMAL> or = 60 mg/dl - LOW CARDIOVASCULAR RISK <40 mg/dl - HIGH CARDIOVASCULAR RISKBlanchard Valley Health System Bl[facility]ard Valley HospitalComment on above:Performed By: #### PALOMA, LIPA #### [facility] [address] [address] [address] Grzegorz WangLDL CALC NORMALSEE BELOWNoParkview Health Montpelier HospitalComment on above:Result Comment: <100 mg/dl OPTIMAL 100 - 129 mg/dl NEAR OR ABOVE OPTIMAL 130 - 159 mg/dl BORDERLINE HIGH 160 - 189 mg/dl HIGH >190 mg/dl VERY HIGH Performed By: #### PALOMA, LIPA #### [facility] [address] [place] [address] Dr. Grzegorz WangTriglyceride [Mass/Vol]80 mg/dLNormal<=150[facility] Comment on above:Performed By: #### PALOMA, LIPA #### [facility] [address] [address] [address] Grzegorz AbarcaLDL CALC16.0 mg/dLBlanchard Valley Health System Blanchard Valley HospitalComment on above: Performed By: #### PALOMA, LIPA #### [facility] [address] [place] [address] Dr. Grzegorz Ruiz PELVISon [id number] PELVISEXAMINATION: US PELVIS HISTORY: Cyst of ovary [...] Electronically authenticated by: MITZI CHAU Date: 2022-01-18 10:31NoParkview Health Montpelier HospitalXR CHEST 2 Von [id number] CHEST 2 VEXAMINATION: XR CHEST 2 V [...] Electronically authenticated by: MITZI CHAU Date: 2022-01-03 10:48NoParkview Health Montpelier HospitalUS PELVISon [id number] PELVISEXAMINATION: US PELVIS HISTORY: Cyst of ovary [...] Electronically authenticated by: MITZI CHAU Date: 2021-12-07 17:20NoParkview Health Montpelier HospitalPROF CHEM 8 (BAS METB)on [id number] gap [Moles/Vol]13.0 mmol/LNormalDetwiler Memorial HospitalComment on above:Performed By: #### PALOMA, LIPA #### [facility] [address] [place] [address] Dr. Grzegorz WangCalcium [Mass/Vol]8.9 mg/dLNormal8.5-10.1[facility] Comment on above:Performed By: #### PALOMA, LIPA #### [facility] [address] [address] [address] Grzegorz WangChloride [Moles/Vol]105 mmol/AAcpbur02-458Srm [facility] Comment on above:Performed By: #### PALOMA, LIPA #### [facility] [address] [address] [address] Grzegorz WangCO2 [Moles/Vol]29.0 mmol/IDffqrv16.0-32.0The [facility] Comment on above:Performed By: #### PALOMA, LIPA #### [facility] [address] [address] [address] Grzegorz WangCreatinine [Mass/Vol]0.79 mg/dLNormal0.55-1.02Detwiler Memorial HospitalComment on above:Performed By: #### PALOMA, LIPA #### [facility] [address] [address] [address] Grzegorz ReisGFR-AF LAO>60Normal>=60The CentervilleComment on above:Performed By: #### PALOMA, LIPA #### [facility] [address] [address] [address] Grzegorz ReisGFR-NON AF LAO>60Normal>=60The CentervilleComment on above:Performed By: #### PALOMA, LIPA #### [facility] [address] [address] [address] Grzegorz WangGlucose [Mass/Vol]79 mg/jOGfoczt85-361Fkl [facility] Comment on above:Performed By: #### PALOMA, LIPA #### [facility] [address] [address] [address] Grzegorz WangPotassium [Moles/Vol]3.0 mmol/LCritically low3.5-5.1The CentervilleComment on above:Performed By: #### PALOMA, LIPA #### [facility] [address] [address] [address] Grzegorz WangSodium [Moles/Vol]144 mmol/GMogmfb947-917Jtu [facility] Comment on above:Performed By: #### PALOMA, LIPA #### [facility] [address] [address] [address] Grzegorz Padron nitrogen [Mass/Vol]12.0 mg/dLNormal7.0-18.0The CentervilleComment on above:Performed By: #### PALOMA, LIPA #### [facility] [address] [address] [address] Grzegorz Padron nitrogen/Creatinine [Mass ratio]15.2 mg/mgNormalThe CentervilleComment on above:Performed By: #### PALOMA, LIPA #### [facility] [address] [place] [address] Dr. Grzegorz WangVITAMIN B12on 72-48-8498Cofyryyib (Vitamin B12) [Mass/Vol]5661.0 pg/mLCritically udet060.0-986.0The CentervilleComment on above:Performed By: #### ERUR #### [facility] [address] [place] [address] Dr. Grzegorz WangBNPon 77-56-5186Kgkbpfzhvgd peptide B (Bld) [Mass/Vol]1245.0 pg/mLCritically high<=900.0The CentervilleComment on above:Performed By: #### PALOMA, LIPA #### [facility] [address] [place] [address] Dr. Grzegorz WangBacterial blood cultureOrdered By: Ashleigh Rashid on 11-26-2021 Bacteria identified Cx Nom (Bld)NO GROWTH 5 DAYSSouthwest General Health CenterCARDIAC BAMBI ADMITon [id number] [Catalytic activity/Vol]75 U/LNormal 26-192The CentervilleComment on above:Performed By: #### PALOMA, LIPA #### [facility] [address] [place] [address] Dr. Grzegorz Waters.MB [Mass/Vol]1.58 ng/mLNormal<=3.60[facility] Comment on above:Performed By: #### PALOMA, LIPA #### [facility] [address] [address] [address] Grzegorz WangHSTROP13.3 pg/mLNormal4.0-51.3The CentervilleComment on above:Result Comment: CUT-OFF POINTS HAVE BEEN ESTABLISHED BASED ON THE FOURTH UNIVERSAL DEFINITIONS OF MYOCARDIAL INFARCTION. THE UPPER REFERENCE LIMIT (URL) OF TROPONIN, DEFINED THE 99TH PERCENTILE OF cTnI DISTRIBUTION IN A REFERENCE POPULATION, HAS BEEN CONFIRMED THE DECISION THRESHOLD FOR CT DIAGNOSIS.Performed By: #### PALOMA, LIPA #### [facility] [address] [place] [address] Dr. Grzegorz Royal85 ng/mLCritically high9-82The CentervilleComment on above:Performed By: #### PALOMA, LIPA #### [facility] [address] [place] [address] Dr. Grzegorz Hurley AUTO DIFFon 75-71-4905IBCI #0.0 103/ulNormal0.0-0.1The CentervilleComment on above:Performed By: #### PALOMA, LIPA #### [facility] [address] [place] [address] Dr. Grzegorz WangBasophils/100 WBC (Bld)0.5 %Normal0.2-2.0[facility] Comment on above:Performed By: #### PALOMA, LIPA #### [facility] [address] [place] [address] Dr. Grzegorz Tellez #0.1 103/ulNormal0.0-0.7The CentervilleComment on above: Performed By: #### PALOMA, LIPA #### [facility] [address] [place] [address] Dr. Grzegorz Reisosinophils/100 WBC (Bld)1.3 %Normal0.9-7.0The [facility] Comment on above:Performed By: #### PALOMA, LIPA #### [facility] [address] [place] [address] Dr. Grzegorz Reisrythrocyte distribution width (RBC) [Ratio]16.8 %Critically high 11.0-15.0The CentervilleComment on above:Performed By: #### PALOMA, LIPA #### [facility] [address] [place] [address] Dr. Grzegorz Srivastavaatochristinet (Bld) [Volume fraction]36.6 %Ydncjt73.0-48.0The CentervilleComment on above:Performed By: #### PALOMA, LIPA #### [facility] [address] [place] [address] Dr. Grzegorz WangHemoglobin (Bld) [Mass/Vol]12.1 g/hKKhsbgo53.0-16.0The CentervilleComment on above:Performed By: #### PALOMA, LIPA #### [facility] [address] [place] [address] Dr. Grzegorz Barbosa #0.03 10e3/ulNormal0.00-0.03The CentervilleComment on above:Performed By: #### PALOMA, LIPA #### [facility] [address] [place] [address] Dr. Grzegorz Barbosa %0.5 %Normal0.0-0.5The CentervilleComment on above: Performed By: #### PALOMA, LIPA #### [facility] [address] [place] [address] Dr. Grzegorz Soriano #0.9 103/ulCritically low1.2-3.8The [facility] Comment on above:Performed By: #### PALOMA, LIPA #### [facility] [address] [place] [address] Dr. Grzegorz Wilkinshocytes/100 WBC (Bld)15.4 %Critically low20.5-60.0The CentervilleComment on above:Performed By: #### PALOMA, LIPA #### [facility] [address] [place] [address] Dr. Grzegorz AriasUAL DIFF REQNONormalThe CentervilleComment on above: Performed By: #### PALOMA, LIPA #### [facility] [address] [place] [address] Dr. Grzegorz Delaney (RBC) [Entitic mass]27.7 jmFgpbvi27.7-34.0The CentervilleComment on above:Performed By: #### PALOMA, LIPA #### [facility] [address] [place] [address] Dr. Grzegorz Finley (RBC) [Mass/Vol]33.1 g/sDNdvzjz08.9-35.2The CentervilleComment on above:Performed By: #### PALOMA, LIPA #### [facility] [address] [place] [address] Dr. Grzegorz WangCANCER TRE[facility] (RBC) [Entitic vol]83.8 bRUoaygg94.0-99.0The CentervilleComment on above:Performed By: #### PALOMA, LIPA #### [facility] [address] [place] [address] Dr. Grzegorz Wild #0.5 103/ulNormal0.3-0.8The CentervilleComment on above:Performed By: #### PALOMA, LIPA #### [facility] [address] [place] [address] Dr. Grzegorz Lemusocytes/100 WBC (Bld)7.8 %Normal1.7-12.0The [facility] Comment on above:Performed By: #### PALOMA, LIPA #### [facility] [address] [place] [address] Dr. Grzegorz Parada #4.5 103/ulNormal1.4-6.5The CentervilleComment on above:Performed By: #### PALOMA, LIPA #### [facility] [address] [place] [address] Dr. Grzegorz Omerutrophils/100 WBC (Bld)74.5 %Jlxvao94.0-75.0The CentervilleComment on above:Performed By: #### PALOMA, LIPA #### [facility] [address] [place] [address] Dr. Grzegorz Corteslet mean volume (Bld) [Entitic vol]11.2 fLNormal9.5-13.5The Bellevue Hospitalment on above:Performed By: #### PALOMA, LIPA #### [facility] [address] [address] [address] Grzegorz WangPLT187 103/twSzhwil067-191Gsc CentervilleComtr[facility] health [facility] on above: Performed By: #### PALOMA, LIPA #### [facility] [address] [address] [address] Grzegorz WangRBC4.37 106/ulNormal4.20-5.40The CentervilleComtrinity health shel[facility] hospital on above:Performed By: #### PALOMA, LIPA #### [facility] [address] [address] [address] Grzegorz WangWBC6.0 103/ulNormal4.0-11.0[facility] on above: Performed By: #### PALOMA, LIPA #### [facility] [address] [place] [address] Dr. Grzegorz WangCT ABD/PELVIS WO CONon [id number] ABD/PELVIS WO CONEXAMINATION: CT ABD/PELVIS WO CON, [...] Electronically authenticated by: MANDI MANRIQUEZ Date: 2021-11-26 15:08[facility] WO CONon [id number] [facility] [place] [facility] CONEXAMINATION: CT HEAD WO CON, CT [...] authenticated by: SHANIA WASHINGTON Date: 2021-11-26 14:44 [facility] URINE PROFILEon 50-21-1850Ozqqihqgt Ql (U)Negative NormalNEGATIVEDetwiler Memorial HospitalComment on above:Performed By: #### CBC #### [facility] [address] [place] [address] Dr. Grzegorz Lovearity (U)CLEARNormalCLEARDetwiler Memorial HospitalComment on above: Performed By: #### CBC #### [facility] [address] [place] [address] Dr. Grzegorz Delvalle (U)LT. YELLOWNormalYELLOWDetwiler Memorial HospitalComment on above:Performed By: #### CBC #### [facility] [address] [place] [address] Dr. Grzgeorz Dawson micrscopic examination will be performed if indicated. NormalDetwiler Memorial HospitalComment on above:Performed By: #### CBC #### [facility] [address] [address] [address] Grzegorz WangGlucose Ql (U)NegativeNormalNEGATIVEDetwiler Memorial HospitalComment on above:Performed By: #### CBC #### [facility] [address] [place] [address] Dr. Grzegorz WangHemoglobin Ql (U)TRACE-INTACTAbnormalNEGATIVEDetwiler Memorial HospitalComment on above:Performed By: #### CBC #### [facility] [address] [place] [address] Dr. Grzegorz WangKetones Ql (U)NegativeNormalNEGATIVEDetwiler Memorial HospitalComment on above:Performed By: #### CBC #### [facility] [address] [place] [address] Dr. Grzegorz WangLEUKOCYTESNegativeNormalNEGATIVEDetwiler Memorial HospitalComment on above:Performed By: #### CBC #### [facility] [address] [place] [address] Dr. Grzegorz Álvareztrashley Ql (U)NegativeNormalNEGATIVEThe CentervilleComment on above:Performed By: #### CBC #### [facility] [address] [address] [address] Grzegorz WangpH (U)5.5 [pH]Normal5-9The CentervilleComment on above: Performed By: #### CBC #### [facility] [address] [address] [address] Grzegorz WangSPEC GRAVITY<=1.495Xssedkox1.005-<=1.025[facility] Comment on above:Performed By: #### CBC #### [facility] [address] [place] [address] Dr. Grzegorz Jones PROTEINNegativeNormalNEGATIVE/ TRACEThe [facility] Comment on above:Performed By: #### CBC #### [facility] [address] [place] [address] Dr. Grzegorz Durham MICRO INDINDICATEDNormalThLima Memorial HospitalComment on above: Performed By: #### CBC #### [facility] [address] [place] [address] Dr. Grzegorz Hsubilinogen Qn (U)0.2 {Lidya'U}/dLNormal0.2 - 1.0The CentervilleComment on above:Performed By: #### CBC #### [facility] [address] [place] [address] Dr. Grzegorz WangPROF 14(COMP METB)on 22-27-5109Dmhpizg [Mass/Vol]3.5 g/dLNormal 3.4-5.0The CentervilleComment on above:Performed By: #### PALOMA, LIPA #### [facility] [address] [place] [address] Dr. Grzegorz WangAlbumin/Globulin [Mass ratio]1.1 {ratio}NormalDetwiler Memorial HospitalComment on above:Performed By: #### PALOMA, LIPA #### [facility] [address] [place] [address] Dr. Grzegorz Oleary [Catalytic activity/Vol]89 U/RVcmbad61-541Xdg [facility]ervilleComment on above:Performed By: #### PALOMA, LIPA #### [facility] [address] [place] [address] Dr. Grzegorz Cummings [Catalytic activity/Vol]22 U/IQxyhhc65-61Rxj CentervilleComment on above:Performed By: #### PALOMA, LIPA #### [facility] [address] [place] [address] Dr. Grzegorz Peters gap [Moles/Vol]10.2 mmol/LNormalThe [facility] Comment on above:Performed By: #### PALOMA, LIPA #### [facility] [address] [place] [address] Dr. Grzegorz Wilcox [Catalytic activity/Vol]18 U/ZBlwzrm55-53Xjf [facility]vue Hospitalment on above:Performed By: #### PALOMA, LIPA #### [facility] [address] [place] [address] Dr. Grzegorz WangBilirubin [Mass/Vol]0.6 mg/dLNormal0.2-1.0[facility] Comment on above:Performed By: #### PALOMA, LIPA #### [facility] [address] [place] [address] Dr. Grzegorz WangCalcium [Mass/Vol]9.1 mg/dLNormal8.5-10.1[facility] Comment on above:Performed By: #### PALOMA, LIPA #### [facility] [address] [place] [address] Dr. Grzegorz WangChloride [Moles/Vol]106 mmol/WEuxszn77-505Lef [facility] Comment on above:Performed By: #### PALOMA, LIPA #### [facility] [address] [place] [address] Dr. Grzegorz WangCO2 [Moles/Vol]29.5 mmol/WPeatps59.0-32.0[facility] Comment on above:Performed By: #### PALOMA, LIPA #### [facility] [address] [place] [address] Dr. Grzegorz WangCreatinine [Mass/Vol]0.86 mg/dLNormal0.55-1.02Detwiler Memorial HospitalComment on above:Performed By: #### PALOMA, LIPA #### [facility] [address] [address] [address] Grzegorz ReisGFR-AF LAO>60Normal>=60The CentervilleComment on above:Performed By: #### PALOMA, LIPA #### [facility] [address] [place] [address] Dr. Grzegorz ReisGFR-NON AF LAO>60Normal>=60The [facility]ervilleComment on above:Performed By: #### PALOMA, LIPA #### [facility] [address] [place] [address] Dr. Grzegorz WangGlobulin (S) [Mass/Vol]3.1 g/dLNormalThe CentervilleComment on above:Performed By: #### PALOMA, LIPA #### [facility] [address] [place] [address] Dr. Grzegorz WangGlucose [Mass/Vol]98 mg/rJRdcodu69-393EkpDetwiler Memorial Hospital Comment on above:Performed By: #### PALOMA, LIPA #### [facility] [address] [place] [address] Dr. Grzegorz WangPotassium [Moles/Vol]2.7 mmol/LCritically low3.5-5.1The CentervilleComment on above:Performed By: #### PALOMA, LIPA #### [facility] [address] [place] [address] Dr. Grzegorz WangProtein [Mass/Vol]6.6 g/dLNormal6.4-8.2The [facility] Comment on above:Performed By: #### PALOMA, LIPA #### [facility] [address] [place], [place] [id number] Dr. Grzegorz Hernandezum [Moles/Vol]143 mmol/YOpgtae820-768CabDetwiler Memorial Hospital Comment on above:Performed By: #### PHIL DOW #### [facility] [address] [place] [address] Dr. Grzegorz Padron nitrogen [Mass/Vol]12.0 mg/dLNormal7.0-18.0The CentervilleComment on above:Performed By: #### PHIL DOW #### [facility] [address] [place] [address] Dr. Grzegorz Padron nitrogen/Creatinine [Mass ratio]14.0 mg/mgNoParkview Health Montpelier HospitalComment on above:Performed By: #### PHIL DOW #### [facility] [address] [place] [address] Dr. Grzegorz Borja 11-71-5998GLN Coag (PPP) [Relative time]1.00 {INR} NormalThe CentervilleComment on above:Performed By: #### CBC #### [facility] [address] [place] [address] Dr. Grzegorz Hercules GUIDELINESSEE BELOWBlanchard Valley Health System Blanchard Valley HospitalComment on above:Result Comment: DESIRED INR: 2.0 - 3.0 CONDITIONS NOT LISTED BELOW 2.5 - 3.5 FOR PROSTHETIC HEART VALVE REPLACEMENT 2.5 - 3.5 RECURRENT THROMBOSIS Performed By: #### CBC #### [facility] [address] [place] [address] Dr. Grzegorz Davis Coag (PPP) [Time]10.8 sNormal9.0-11.6The [facility] Comment on above:Performed By: #### CBC #### [facility] [address] [place] [address] Dr. Grzegorz Aguilar 84-70-8654jPWC Coag (Bld) [Time]23.1 eAhqxov04.3-36.2The [facility] Hospitalment on above:Performed By: #### CBC #### [facility] [address] [place] [address] Dr. Grzegorz De Oliveira MICROSCOPIC ONLYon [id number] SEENNormalNONE SEENDetwiler Memorial HospitalComtrinity health shel[facility] hospital on above:Performed By: #### CBC #### [facility] [address] [place] [address] Dr. Grzegorz Valentin identified Cx Nom (U)NOT INDICATEDNoalThLima Memorial HospitalComtrinity health shel[facility] hospital on above:Performed By: #### CBC #### [facility] [address] [place] [address] Dr. Grzegorz WangCASTRHIANNON SEENNormalNONE SEENDetwiler Memorial HospitalComtrinity health shelby hospital on above:Performed By: #### CBC #### [facility] [address] [place] [address] Dr. Grzegorz Seguraystals LM Nom (Urine sed)NONE SEENNormalNONE SEENOhioHealth Arthur [facility] on above:Performed By: #### CBC #### [facility] [address] [place] [address] Dr. Grzegorz Nuñezthelial cells LM Ql (Urine sed)FEWAbnormalNONE SEEN /RAREThe CentervilleComtrinity health [facility] hospital on above:Performed By: #### CBC #### [facility] [address] [place] [address] Dr. Grzegorz SaldañaCOUSALMAE SEENNormalNONE SEENOhioHealth [facility] on above:Performed By: #### CBC #### [facility] [address] [place] [address] Dr. Grzegorz WangQbtdkDQS3-3Ztvvzy1-8Cgv [facility] HospitalComtr[facility] on above:Performed By: #### CBC #### [facility] [address] [place] [address] Dr. Grzegorz WangWBC0-2AbnormalNONE SEENDetwiler Memorial HospitalComtrinity health shelby hospital on above: Performed By: #### CBC #### [facility] [address] [place] [address] Dr. Grzegorz WangXR CHEST 1 Von [id number] CHEST 1 VEXAM: Chest x-ray HISTORY: . Asthenia . COMPARISON: 09/02/2021 TECHNIQUE: Single view of the chest. FINDINGS: Heart and vascularity are unremarkable. Lungs are free of focal infiltrates. Loop recorder overlies the left heart border. Atherosclerotic changes of the thoracic aorta are noted. Impression: No acute heart or lung disease identified. Electronically authenticated by: NATACHA JAUREGUI Date: 2021-11-26 14:21[facility] BRAIN HEAD WO CONTRASTon [id number] BRAIN HEAD WO CONTRAST EXAM DESCRIPTION: CT [...] By: ISMAEL AGUILAR MD Signed Out: 11/24/21 14:21:18[facility] CenterED Adult Data - Texton [id number] Adult Data - TextED Adult Data Entered [...] PNED ; Probability: 0 ; Diagnosis Code: [id number] Fall Date: 11/24/2021 ; Diagnosis Type: Reason For Visit ; Confirmation: Confirmed ; Clinical Dx: Fall ; Classification: Medical ; Clinical Service: Emergency medicine ; Code: PNED ; Probability: 0 ;Diagnosis Code: [id number] Procedure History ED Devices Present on Arrival [...] risk situation (congregated living, hemodialysis, infusion clinic, prison, assisted living, retirement, homeless senior living, etc.)? : No Fabio BATISTA, Jennifer - 11/24/2021 15:25 [facility] Discharge [facility] [id number] Discharge EducationDermatology Cuts Closed With [place]: Care Instructions Your Care Instructions A cut can happen anywhere on your body. The doctor used kemi to close the cut. [place] easily and quickly close a cut, which [...] your doctor if you can take an zvtu-pki-ryhmewg medicine. When should you call for help? [...] Where can you learn more? Go to [email or web address].net/patientEd Enter E525 in the search box to learn more about Cuts Closed With Kemi: Care Instructions. Current as of: April 08, 2019 Content Version: 12.7 ? Reveal. Care instructions adapted under license by your healthcare professional. If you have questions about a medical condition or this instruction, always ask your healthcare professional. [employer] disclaims any warranty or liability for your [...] He domo will (more content not included)... [facility] CenterED Emergency Severity Index Adult-Texton [id number] Emergency Severity Index Adult-TextESI - Adult Entered On: 11/24/2021 12:33 EDT Performed On: 11/24/2021 12:33 EDT by Jennifer Mccarthy RN JUSTINO DCP GENERIC CODE Visit Reason : FALL Tracking Triage Date/Time : 11/24/2021 12:33 EDT Tracking Reg Status : Requested Tracking Acuity : [id number] Tracking Group : SGEN Tracking Jennifer Mccarthy RN - 11/24/2021 12:[address] [facility] CenterED Nrsing Adlt Triage Sep Scrning - Texton [id number] Nrsing Adlt Triage Sep Scrning - TextED Nursing Adult Triage Sepsis Screening Tool Entered On: 11/24/2021 13:00 EDT Performed On: 11/24/2021 13:00 EDT by Jennifer Mccarthy RN Adult Sepsis Screening Sepsis Infection Screening ED : Yes Sepsis Vitals Screening ED : None/ NA(Peds) Jennifer Mccarthy RN - 11/24/2021 13:00 EDTCleveland Clinic [facility]view [facility] CenterED Patient Summaryon [id number] [facility] Instructions [address] [place] [address] \.br\(Patient Copy)\.br\ \.br\Name: OZZIE GIFFORD : 1950 \.br\Allergies: penicillin\.br\Diagnosis: Accidental fall; CHI (closed head injury); Contusion of rib on rightside; Laceration of scalp\.br\ \.br\ Visit Date: 11/24/2021 12:30:03 \.br\ Current Date Time: 11/24/2021 17:30:08 \.br\Address: [address] [place], [place] [address] [address] \.br\ \.br\ \.br\Primary Care Provider: \.br\Name: NO FAMILY PHYSICIAN, 837\.br\Phone: \.br\ \.br\Emergency Department Care Providers: \.br\ Primary Physician: LUIS DARNELL MD \.br\.br\ \.br\.br\Thank you for choosing [facility] for your emergency care. You are very important to us. Our goal is to demonstrate our high quality medical care, and provide you with a very good patient experience.\.br\.br\You may receive a survey about our service. Please take the time tocomplete the survey and return it so we can continue to enhance our service.\.br\.br\Thank you zaki katz for allowing the [facility] Emergency Department to care for your medical needs. If you have questions about your care or follow up information please contact us at [phone].\.br\.br\ Follow-Up Instructions\.br\ \.br\OZZIE GIFFORD has been given these follow-up instructions:\.br\.br\.br\With: Address: When: \.br\[facility], [facility] [address], [address] [place] [address]\.br\([phone] Business (1) Within 7 to 10 days \.br\.br\.br\With: Address: When: \.br\[address] NO FAMILY PHYSICIAN Within 3 to 5 days \.br\.br\.br\.br\.br\Patient Education Materials\.br\ \.br\OZZIE GIFFORD has been given the followingpatient education materials:\.br\.br\Cuts Closed With [place]: Care Instructions\.br\Your Care Instructions\.br\A cut can happen [...] bandage. You will need to have the kmei removed, usually in 7 to 14 days.\.br\The [...] your doctor if you can take an hukq-zzu-qnqafhx medicine.\.br\When should you call for help?\.br\ Call [...] do not get b (more content not included)...[facility]ED Physician Reporton [id number] Physician Report Patient: OZZIE GIFFORD Age: 71 [...] [facility] Location: Posterior head. The character of symptoms is pain. Therapy today: see nurses notes. Associated symptoms: denies loss of consciousness. This is a 71 y/o female presenting to the ED via EMS for evaluation of a mechanical fall. The patient [place] [employer] and she was going down steps and [...] tenderness, no swelling, no deformity. Psychiatric: Cooperative. Bend coma scale Eye response: 4 /4, verbal [...] BRAIN HEAD WO CONTRAST (more content not included)...[facility] CenterED Pre-Arrival Formon [id number] Pre-Arrival FormPre-Arrival Summary Name: KARTIK, Current Date: 11/24/2021 12:31:19 EDT Gender: Date of : Age: Pre-Arrival Type: EMS ETA: 11/24/2021 12:53:00 EDT Primary Care Physician: Presenting Problem: Pre-Arrival User: Kailyn Jacobs RN Referring Source: Location: [address] [place] [address] Emergency Department [address] [place] [address] Notes: Vital Signs: Doctor Call Back: DNR Status: Miscellaneous Issues:[facility] CenterED Progress Noteon [id number] Progress NotePt presents to ED via EMS [...] verbalized understanding, pt ambulatory with steady [facility] Triage Adult-Text on [id number] Triage Adult-TextED Triage Entered On: 11/24/2021 13:00 EDT Performed On: 11/24/2021 12:59 EDT by Jennifer Mccarthy RN Triage (As Of: 11/24/2021 13:00:25 EDT) Diagnoses(Active) Fall Date: 11/24/2021 ; Diagnosis Type: Reason For Visit ; Confirmation: Confirmed ; Clinical Dx: Fall ; Classification: Medical ; Clinical Service: Non- Specified ; Code: PNED ; Probability: 0 ; Diagnosis Code: [id number] (As Of: 11/24/2021 13:00:25 EDT) Vitals/Ht/Wt Temperature [...] Jennifer Mccarthy RN - 11/24/2021 12:59 EDT [facility] HospitalUrine culture routineOrdered By: Rafiq Bahena on 43-39-8597Lwjhjmvk identified Cx Nom (U) Escherichia coliSouthwest General Health CenterAlbumin [Mass/volume] in Serum or PlasmaOrdered By: Ashleigh Rashid on 97-38-1471Olrulsh [Mass/Vol]3.0 g/dL3.2-5.5 [facility] CenterBasophils Auto (Bld) [#/Vol]Ordered By: Ashleigh Rashid on 37-53-7705Qzgzeaxxl (Bld) [#/Vol]0.0 10*3/uL0.0-0.2FMercy Health Lorain HospitalBasophils/100 WBC Auto (Bld)Ordered By: Ashleigh Rashid on 11-22-2021 Basophils/100 WBC (Bld)0.6 %.[facility] Health CenterCreatinine and Glomerular filtration rate.predicted panel (S/P/Bld)Ordered By: Ashleigh Rashid on 53-97-6751Mrnwwrmebp [Mass/Vol]1.10 mg/dL0.44-1.03[facility] Health CenterComment on above:Delta: 2.08 on 11/21/21Eosinophils Auto (Bld) [#/Vol]Ordered By: Ashleigh Rashid on 88-82-8067Obpmudfyftl (Bld) [#/Vol]0.2 10*3/uL 0.0-0.45[facility] CenterEosinophils/100 WBC Auto (Bld)Ordered By: Ashleigh Rashid on 91-79-6035Momcbxqcyzd/100 WBC (Bld)4.4 %.[facility] CenterErythrocyte distribution width Auto (RBC) [Ratio]Ordered By: Ashleigh Rashid on 91-72-6445Ozqhhorvmhj distribution width (RBC) [Ratio]20.7 %11.9-15.3 [facility] CenterEstimated glomerular filtration rate (GFR) non- AmericanOrdered By: Ashleigh Rashid on 70-74-3022PRF/1.73 sq M.predicted among non-blacks MDRD (S/P/Bld) [Vol rate/Area]49 mL/MinSouthwest General Health CenterGlobulin Calc (S) [Mass/Vol]Ordered By: Ashleigh Rashid on 05-23-6693Epnfeacc (S) [Mass/Vol]2.4 g/dLSouthwest General Health CenterHematocrit Auto (Bld) [Volume fraction]Ordered By: Ashleigh Rashid on 41-87-4301Wdhrrfsdkg (Bld) [Volume fraction]36.9 %34.0-46.4FMercy Health Lorain HospitalHemoglobin [Mass/volume] in BloodOrdered By: Ashleigh Rashid on 81-86-0118Wruubqrsbp (Bld) [Mass/Vol]12.1 g/dL11.8-15.4FMercy Health Lorain HospitalLaboratory - Chemistry and Chemistry - challengeOrdered By: Ashleigh Rashid on 02-16-3808Fmlxecdrm [Mass/Vol]2.1 mg/dL1.6-2.6FMercy Health Lorain HospitalLaboratory - Hematology and Cell countsOrdered By: Ashleigh Rashid on 09-49-5936Qgkswppcp RBC/100 WBC (Bld) [Ratio]0.1 %0-0.5FMercy Health Lorain HospitalLeukocytes [#/volume] in Blood by Automated countOrdered By: Ashleigh Rashid on 34-83-1701FRU (Bld) [#/Vol]4.7 10*3/uL4.5-11.0[facility] Health CenterLymphocytes Auto (Bld) [#/Vol]Ordered By: Ashleigh Rashid on 98-08-4034Xifhjgxhbhs (Bld) [#/Vol] 1.2 10*3/uL1.00-4.8[facility] Health CenterLymphocytes/100 WBC Auto (Bld)Ordered By: Ashleigh Rashid on 43-75-2684Wijhikwgbnl/100 WBC (Bld)26.0 %. [facility] Auto (RBC) [Entitic mass]Ordered By: Ashleigh Rashid on 11-40-9760AFX (RBC) [Entitic mass]27.2 pg24.7-34.3FMercy Health Lorain HospitalMCHC Auto (RBC) [Mass/Vol]Ordered By: Ashleigh Rashid on 27-70-3421EIEE (RBC) [Mass/Vol]32.6 g/dL32.0-35.0[facility] CenterMCV Auto (RBC) [Entitic vol]Ordered By: Ashleigh Rashid on 62-84-7748RDR (RBC) [Entitic vol] 83.5 bL31-683SvbgglptoSouthwest General Health CenterMonocytes Auto (Bld) [#/Vol] Ordered By: Ashleigh Rashid on 30-00-7111Dzrqvxonh (Bld) [#/Vol]0.4 10*3/uL0.0-0.8 [facility] CenterMonocytes/100 WBC Auto (Bld)Ordered By: Ashleigh Rashid on 17-63-4529Labhpvfkm/100 WBC (Bld)8.4 %.[facility] Neutrophils Auto (Bld) [#/Vol]Ordered By: Ashleigh Rashid on 33-59-1726Hbnmrjbgnfe (Bld) [#/Vol]2.8 10*3/uL1.8-7.7FMercy Health Lorain HospitalNeutrophils/100 WBC Auto (Bld)Ordered By: Ashleigh Rashid on 70-49-3900Herpmrmejyu/100 WBC (Bld)60.6 % .[facility] CenterNo Panel InformationOrdered By: Ashleigh Rashid on 58-03-4742Xhncdkojp GFR ()59 mL/MinSouthwest General Health CenterComment on above:GFR estimated reference range: According to KDOQI guidelines, <60 ml/min/1.73m2 is sufficient todiagnose a patient with chronic kidney disease.Pharmacy Creatinine Clearance (Chem44.22[facility] Health CenterPlatelet mean volume Auto (Bld) [Entitic vol]Ordered By: Ashleigh Rashid on 95-70-2347Dfwhajrp mean volume (Bld) [Entitic vol]9.7 fL6.3-10.7FMercy Health Lorain HospitalPlatelets Auto (Bld) [#/Vol]Ordered By: Ashleigh Rashid on 87-72-6236Pcpbbagci (Bld) [#/Vol]184 10*3/hO943-714ZohfvrylnSouthwest General Health CenterProtein [Mass/volume] in Serum or PlasmaOrdered By: Ashleigh Rashid on 94-37-4596Klzrvsm [Mass/Vol]5.4 g/dL6.1-7.9[facility] Health CenterRBC Auto (Bld) [#/Vol]Ordered By: Ashleigh Rashid on 75-83-7853GSK (Bld) [#/Vol]4.43 10*6/uL3.60-5.00Parkview Healtherum or plasma alanine aminotransferase measurement without P-5'-P (enzymatic activiOrdered By: Ashleigh Rashid on 66-13-4121KCX No additional P-5'-P [Catalytic activity/Vol]16 U/L10-60 [facility] Healtherum or plasma albumin/globulin mass ratio Ordered By: Ashleigh Rashid on 40-27-8287Qixrkak/Globulin [Mass ratio]1.3 {ratio} [facility] Healtherum or plasma alkaline phosphatase measurement (enzymatic activity/volume)Ordered By: Ashleigh Rashid on 88-38-8600ITQ [Catalytic activity/Vol]70 U/B50-69PiqctltmdParkview Healtherum or plasma anion gap determinationOrdered By: Ashleigh Rashid on 68-76-7716Rhocu gap [Moles/Vol]12.2 mmol/L6.0-15.0[facility] Healtherum or plasma aspartate aminotransferase measurement (enzymatic activity/volume)Ordered By: Ashleigh Rashid on 37-54-6674DQL [Catalytic activity/Vol]15 U/B74-33TbrmbfyjsParkview Healtherum or plasma calcium measurement (mass/volume)Ordered By: Ashleigh Rashid on 51-72-5665Zcherlm [Mass/Vol]8.9 mg/dL8.2-10.2FAdams County Regional Medical Centererum or plasma chloride measurement (moles/volume)Ordered By: Ashleigh Rashid on 90-36-7079Qgjxmsuu [Moles/Vol]115 mmol/X53-021NvzenrrgzParkview Healtherum or plasma glucose measurement (mass/volume)Ordered By: Ashleigh Rashid on 62-82-0865Azmnrrh [Mass/Vol]93 mg/fD58-689PzkdotqprSouthwest General Health Center Comment on above:ADA recommended reference rangeRandom Glucose Reference Range is dependent on time and content of last meal. Glucose of more than 200 mg/dL in a nonstressed, ambulatory subject supports the diagnosisof Diabetes Mellitus. Serum or plasma potassium measurement (moles/volume)Ordered By: Ashleigh Rashid on 15-38-7428Zenphnjfa [Moles/Vol]3.1 mmol/L3.5-5.1FAdams County Regional Medical Centererum or plasma sodium measurement (moles/volume)Ordered By: Ashleigh Rashid on 15-88-4935Mlmycp [Moles/Vol]147 mmol/V476-461XmykffyjsSouthwest General Health Center Serum or plasma total bilirubin measurement (mass/volume)Ordered By: Ashleigh Rashid on 82-04-6709Pwvbhuyih [Mass/Vol]0.7 mg/dL0.3-1.2FAdams County Regional Medical Centererum or plasma total carbon dioxide measurement (moles/volume)Ordered By: Ashleigh Rashid on 59-93-1308HK8 [Moles/Vol]22.9 mmol/L22.0-30.0[facility] Healtherum or plasma urea nitrogen measurement (mass/volume)Ordered By: Ashleigh Rashid on 22-32-3699Majf nitrogen [Mass/Vol]28 mg/dL9-23[facility] CenterAmphetamine Screen Ql (U)Ordered By: Rafiq Bahena on 11-21-2021 Amphetamines Ql (U)NegativeNegativeSouthwest General Health CenterAutomated erythrocytes count in urine sediment (number/area)Ordered By: Rafiq Bahena on 62-98-7756YYJ Auto (Urine sed) [#/Area]0-1 [HPF]0-4FMercy Health Lorain HospitalAutomated leukocytes count in urine sediment (number/area)Ordered By: Rafiq Bahena on 64-53-5318FZX Auto (Urine sed) [#/Area]3-4 [HPF]0-4FMercy Health Lorain HospitalBarbiturates [Presence] in UrineOrdered By: Rafiq Bahena on 02-34-4898Vutnmrbvnbjs Ql (U)NegativeNegMercy HealthBasophils Auto (Bld) [#/Vol]Ordered By: Rafiq Bahena on 11-21-2021 Basophils (Bld) [#/Vol]0.0 10*3/uL0.0-0.2FMercy Health Lorain Hospital Basophils/100 WBC Auto (Bld)Ordered By: Rafiq Bahena on 60-52-8767Aqxwnysqe/100 WBC (Bld)0.8 %.[facility] Health CenterBenzodiazepines [Presence] in UrineOrdered By: Rafiq Bahena on 76-10-2397Dzexkepzvyvphug Ql (U)Negative NegativeSouthwest General Health CenterBilirubin Test strip Ql (U)Ordered By: Rafiq Bahena on 35-54-1535Flwpljvvr Ql (U)NegativeNegativeSouthwest General Health CenterBlood hemoglobin measurement (mass/volume)Ordered By: Rafiq Bahena on 04-93-2183Hpwyvgrpfn (Bld) [Mass/Vol]11.6 g/dL11.8-15.4FMercy Health Lorain HospitalBlood leukocytes automated count (number/volume)Ordered By: Rafiq Bahena on 67-59-3552JIS (Bld) [#/Vol]5.3 10*3/uL4.5-11.0[facility] CenterBody fluid albumin measurement (mass/volume)Ordered By: Rafiq Bahena on 12-69-0585Qqizgvu (Body fld) [Mass/Vol]3.4 g/dL3.2-5.5FMercy Health Lorain HospitalCOVID CepheidOrdered By: Ashleigh Rashid on 11-21-2021 SARS-CoV-2 (COVID-19) Ab IA QlNegativeNegativeSouthwest General Health Center Comment on above:This is a duplicate [employer] Xpert Xpress CoV-2/Flu/RSV Plus RNA by RT-PCR result to be used for statistical tracking purpose only.SARS-CoV-2 (COVID-19) RNA SIOBHAN+probe Ql (Unsp spec)[facility] Health CenterCOVID-19 Positive/NegativeOrdered By: Rafiq Bahena on 23-05-5990VCBL-CoV-2 (COVID-19) N gene SIOBHAN+probe Ql (Resp)IndeterminateNegativeSouthwest General Health Center Comment on above:Testing for SARS-CoV-2 by RT-PCRThis test was developed and its performance characteristics determined by [employer] ([employer]) and validated at the [facility]. This test has not been FDA [...] revoked sooner.COVID-19 SOFIAOrdered By: Rafiq Bahena on 95-49-6950KFIO-CoV+SARS-CoV-2 (COVID-19) Ag IA.rapid Ql (Resp)NegativeNegMercy HealthComment on above:This is a duplicate [employer] SARS Antigen (WALKER) result to be used for statistical tracking purpose only.Cannabinoids [Presence] in Urine by Screen methodOrdered By: Rafiq Bahena on 55-16-9888Nupvwundictt Screen Ql (U)NegativeNegativeSouthwest General Health CenterComment on above:These are unconfirmed results and should not be used for legal purposes. Drug Cut-Off Concentration: AMPH 1000 ng/mL RONALD 200 ng/mL CARMELA 200 ng/mL COCM 300 ng/mL OP 300 ng/mL PCP 25 ng/mL THC 20 ng/mLColor Auto (U)Ordered By: Rafiq Bahena on 89-13-8368Mptli (U)YellowWood County HospitalCreatinine and Glomerular filtration rate.predicted panel (S/P/Bld)Ordered By: Rafiq Bahena on 78-12-1365Jbrznadlue [Mass/Vol]2.08 mg/dL0.44-1.03[facility] CenterEosinophils Auto (Bld) [#/Vol]Ordered By: Rafiq Bahena on 20-01-6033Pefhkujlcxy (Bld) [#/Vol]0.2 10*3/uL0.0-0.45[facility] CenterEosinophils/100 WBC Auto (Bld) Ordered By: Rafiq Bahena on 10-05-8561Jhtcrgphuzt/100 WBC (Bld)3.7 %.[facility] CenterErythrocyte distribution width Auto (RBC) [Ratio]Ordered By: Rafiq Bahena on 10-95-7014Lngwgjjslnv distribution width (RBC) [Ratio]20.4 %11.9-15.3FMercy Health Lorain HospitalEstimated glomerular filtration rate (GFR) non- AmericanOrdered By: Rafiq Bahena on 65-44-6109WGR/1.73 sq M.predicted among non-blacks MDRD (S/P/Bld) [Vol rate/Area]23 mL/MinSouthwest General Health CenterGlobulin Calc (S) [Mass/Vol]Ordered By: Rafiq Bahena on 38-05-7566Unxxcmwc (S) [Mass/Vol]2.1 g/dLSouthwest General Health Center Glucose Glucometer (BldC) [Mass/Vol]Ordered By: Rafiq Bahena on 11-21-2021 Glucose [Mass/Vol]134 mg/dLSouthwest General Health CenterComment on above: Random Glucose Reference Range is dependent on time and content of last meal. Glucose of more than 200 mg/dL in a nonstressed, ambulatory subject supports the diagnosis of Diabetes Mellitus.Hematocrit Auto (Bld) [Volume fraction]Ordered By: Rafiq Bahena on 79-56-1249Xqfsyclssl (Bld) [Volume fraction]35.6 %34.0-46.4 [facility] CenterKetones Auto test strip (U) [Mass/Vol]Ordered By: Rafiq Bahena on 38-26-4409Ruptaap (U) [Mass/Vol]NegativeNegativeSouthwest General Health CenterLaboratory - Chemistry and Chemistry - challengeOrdered By: Rafiq Bahena on 78-59-0039SC7 [Moles/Vol]23.8 mmol/L23.0-27.0[facility] Health CenterHCO3 (Bld) [Moles/Vol]22.6 mmol/L23.0-29.0[facility] CenterLaboratory - Drug toxicologyOrdered By: Rafiq Bahena on 50-54-8853Vzwuudm Ql (U)NegativeNegativeSouthwest General Health Center Laboratory - Hematology and Cell countsOrdered By: Rafiq Bahena on 11-21-2021 Nucleated RBC/100 WBC (Bld) [Ratio]0.0 %0-0.5FMercy Health Lorain Hospital Laboratory - UrinalysisOrdered By: Rafiq Bahena on 00-37-0082Rwvnrak casts LM Ql (Urine sed)0-8 [LPF]0-8[facility] CenterLymphocytes Auto (Bld) [#/Vol]Ordered By: Rafiq Bahena on 91-53-3555Doeubbblkgv (Bld) [#/Vol]1.1 10*3/uL1.00-4.8[facility] CenterLymphocytes/100 WBC Auto (Bld) Ordered By: Rafiq Bahena on 98-42-3282Ydigvqtjnca/100 WBC (Bld)20.4 %.[facility] HospitalH Auto (RBC) [Entitic mass]Ordered By: Rafiq Bahena on 80-78-6346XXN (RBC) [Entitic mass]26.9 pg24.7-34.3FMercy Health Lorain HospitalMCHC Auto (RBC) [Mass/Vol]Ordered By: Rafiq Bahena on 65-18-8828STFB (RBC) [Mass/Vol]32.6 g/dL32.0-35.0[facility] CenterMCV Auto (RBC) [Entitic vol]Ordered By: Rafiq Bahena on 96-83-4168XTS (RBC) [Entitic vol]82.5 bU83-990UkbwrplguSouthwest General Health CenterMonocyte %Ordered By: Rafiq Bahena on 49-95-0839Iffrxzyn %17 umol/K50-88SxgcjepwsSouthwest General Health Center Monocytes Auto (Bld) [#/Vol]Ordered By: Rafiq Bahena on 56-09-0126Hknlzctwv (Bld) [#/Vol]0.5 10*3/uL0.0-0.8[facility] CenterMonocytes/100 WBC Auto (Bld)Ordered By: Rafiq Bahena on 32-42-2328Eridzzxhh/100 WBC (Bld)9.9 %.[facility] Health CenterNeutrophils Auto (Bld) [#/Vol]Ordered By: Rafiq Bahena on 64-65-1740Qjuvdpuvsav (Bld) [#/Vol]3.5 10*3/uL1.8-7.7FMercy Health Lorain HospitalNeutrophils/100 WBC Auto (Bld)Ordered By: Rafiq Bahena on 35-50-9972Mphfjlstdrb/100 WBC (Bld)65.2 %.[facility] Nitrite Test strip Ql (U)Ordered By: Rafiq Bahena on 93-05-2535Xbqbmly Ql (U) PositiveNegativeSouthwest General Health CenterNo Panel InformationOrdered By: Ashleigh Rashid on 24-15-2070Aukkcdd B12 Level> 7500 pg/oE815-981MtvdichoySouthwest General Health CenterNo Panel InformationOrdered By: Rafiq Bahena on 11-21-2021 Arterial Blood Base Excess-1.9 mmol/L-3.0-3.0[facility] Arterial Blood Oxygen Content7.1 mmol/L6.6-9.7FMercy Health Lorain Hospital Arterial Blood Oxygen Plfwstponj78.9 %95.0-100.0[facility] CenterArterial Blood Partial Pressure CO237.8 mm[Hg]35.0-45.0[facility] CenterArterial Blood Partial Pressure O282.7 mm[Hg]80.0-100.0[facility] CenterArterial Blood pH7.407.35-7.45[facility] CenterBlood Gas Critical ValueSee commentSouthwest General Health Center Comment on above:Critical Value called on: 11/21/2021 at 06:17Blood Gas Sample SiteLeft radialSouthwest General Health CenterFiO221 %[facility] CenterEstimated GFR ()28 mL/MinSouthwest General Health CenterComment on above:GFR estimated reference range: According to KDOQI guidelines, <60 ml/min/1.73m2 is sufficient todiagnose a patient with chronic kidney disease.Pharmacy Creatinine Clearance (Chem22.98[facility] CenterBedside Glucose CommentGlu2: cleaned meterSouthwest General Health CenterPhencyclidine Screen Ql (U)Ordered By: Rafiq Bahena on 11-21-2021 Phencyclidine Ql (U)NegativeNegMercy HealthPlatelet mean volume Auto (Bld) [Entitic vol]Ordered By: Rafiq Bahena on 11-21-2021 Platelet mean volume (Bld) [Entitic vol]9.6 fL6.3-10.7FMercy Health Lorain HospitalPlatelets Auto (Bld) [#/Vol]Ordered By: Rafiq aBhena on 11-21-2021 Platelets (Bld) [#/Vol]140 10*3/cQ085-591YrcnealwwSouthwest General Health Center Protein Auto test strip (U) [Mass/Vol]Ordered By: Rafiq Bahena on 11-21-2021 Protein (U) [Mass/Vol]NegativeNegMercy HealthProtein [Mass/volume] in Serum or PlasmaOrdered By: Rafiq Bahena on 90-16-1595Ogpzvhc [Mass/Vol]5.5 g/dL6.1-7.9[facility] Health CenterRBC Auto (Bld) [#/Vol] Ordered By: Rafiq Bahena on 44-17-9724GJQ (Bld) [#/Vol]4.31 10*6/uL3.60-5.00 [facility] Healtherum or plasma alanine aminotransferase measurement without P-5'-P (enzymatic activiOrdered By: Rafiq Bahena on 01-77-6399ZPC No additional P-5'-P [Catalytic activity/Vol]17 U/G92-20HgqkpwlaiParkview Healtherum or plasma albumin/globulin mass ratioOrdered By: Rafiq Bahena on 02-95-7763Imputpo/Globulin [Mass ratio]1.6 {ratio}[facility] Healtherum or plasma alkaline phosphatase measurement (enzymatic activity/volume)Ordered By: Rafiq Bahena on 20-97-9755UEH [Catalytic activity/Vol]74 U/J17-33CfgowipbtParkview Healtherum or plasma anion gap determinationOrdered By: Rafiq Bahena on 03-20-0437Hcohz gap [Moles/Vol] 14.6 mmol/L6.0-15.0[facility] Healtherum or plasma aspartate aminotransferase measurement (enzymatic activity/volume)Ordered By: Rafiq Bahena on 75-14-4629WPP [Catalytic activity/Vol]19 U/M18-41JbkzlwngsParkview Healtherum or plasma calcium measurement (mass/volume)Ordered By: Rafiq Bahena on 81-74-9030Nwpmkqm [Mass/Vol]9.1 mg/dL8.2-10.2FAdams County Regional Medical Centererum or plasma chloride measurement (moles/volume)Ordered By: Rafiq Bahena on 45-03-3786Rydfqgcm [Moles/Vol]107 mmol/X08-187RkazkskifParkview Healtherum or plasma ethanol measurement (mass/volume)Ordered By: Rafiq Bahena on 03-74-7892Qsrngnn [Mass/Vol]mg/dLSouthwest General Health CenterEthanol [Mass/Vol]TNPSouthwest General Health CenterComment on above: Test not performedSerum or plasma glucose measurement (mass/volume)Ordered By: Rafiq Bahena on 88-87-6499Iojtdvq [Mass/Vol]124 mg/aZ12-715VwbnmjtwtSouthwest General Health CenterComment on above:ADA recommended reference rangeRandom Glucose Reference Range is dependent on time and content of last meal. Glucose of more than 200 mg/dL in a nonstressed, ambulatory subject supports the diagnosisof Diabetes Mellitus.Serum or plasma potassium measurement (moles/volume)Ordered By: Rafiq Bahena on 47-76-8636Ancrbildr [Moles/Vol]3.1 mmol/L3.5-5.1FAdams County Regional Medical Centererum or plasma sodium measurement (moles/volume)Ordered By: Rafiq Bahena on 79-47-1796Evefsf [Moles/Vol]142 mmol/I286-584VesneoutxParkview Healtherum or plasma total bilirubin measurement (mass/volume) Ordered By: Rafiq Bahena on 37-78-1537Sumlsfuqx [Mass/Vol]0.3 mg/dL0.3-1.2 [facility] Healtherum or plasma total carbon dioxide measurement (moles/volume)Ordered By: Rafiq Bahena on 81-91-6639VO6 [Moles/Vol] 23.5 mmol/L22.0-30.0[facility] Healtherum or plasma urea nitrogen measurement (mass/volume)Ordered By: Rafiq Bahena on 55-08-8109Envh nitrogen [Mass/Vol]49 mg/dL9-23Parkview Healthpecific gravity Auto test strip (U) [Rel density]Ordered By: Rafiq Bahena on 11-21-2021 Specific gravity (U) [Rel density]1.0101.001-1.030Parkview Healthquamous epithelial cells detection in urine sediment by light microscopy Ordered By: Rafiq Bahena on 62-34-3201Itrkogwqfa cells.squamous LM Ql (Urine sed)1-2 [HPF]0-2FMercy Health Lorain HospitalTS DL <= 0.005 mIU/L QnOrdered By: Rafiq Bahena on 72-97-0264ZSK Qn2.40 m[IU]/L0.45-5.33[facility] CenterThyroxine (T4) free [Mass/volume] in Serum or PlasmaOrdered By: Rafiq Bahena on 69-23-9337Jskg T4 [Mass/Vol]0.68 ng/dL0.61-1.12[facility] CenterTroponin I.cardiac [Mass/volume] in Serum or Plasma by High sensitivity methodOrdered By: Rafiq Bahena on 71-41-9088Cywqbfpe I.cardiac High sensitivity method [Mass/Vol]6 pg/mL0-15[facility] Urine bacteria detection by automated methodOrdered By: Rafiq Bahena on 71-51-5876Vcrzvyba Auto Ql (U)2+None SeenSouthwest General Health CenterUrine clarity by refractometry automatedOrdered By: Rafiq Bahena on 44-77-2303Zjgiudz Refractometry automated (U)ClearClearFMercy Health Lorain HospitalUrine cocaine detectionOrdered By: Rafiq Bahena on 11-93-6038Vrwzyyh Ql (U)Negative NegativeSouthwest General Health CenterUrine glucose measurement by automated test strip (mass/volume)Ordered By: Rafiq Bahena on 27-25-8400Zkaorqn Auto test strip (U) [Mass/Vol]Normal mg/dLNormAvita Health System Galion HospitalUrine hemoglobin detection by automated test stripOrdered By: Rafiq Bahena on 33-07-9765Adwtswfakd Auto test strip Ql (U)NegativeNegativeSouthwest General Health CenterUrine leukocyte esterase detection by automated test stripOrdered By: Rafiq Bahena on 77-05-5879Fzpbayegh esterase Auto test strip Ql (U)1+ NegativeSouthwest General Health CenterUrobilinogen Auto test strip (U) [Mass/Vol]Ordered By: Rafiq Bahena on 85-33-3772Tqdfxtvjgkvi (U) [Mass/Vol] Normal mg/dLNormAvita Health System Galion HospitalpH Auto test strip (U)Ordered By: Rafiq Bahena on 03-86-7005gC (U)5.5 [pH]5.0-9.0[facility] CenterCBC AUTO DIFFon 67-02-5605VKIX #0.1 103/ulNormal0.0-0.1The CentervilleComment on above:Performed By: #### CBC #### [facility] [address] [address] [address] Grzegorz WangBasophils/100 WBC (Bld)0.6 %Normal0.2-2.0The [place] Comment on above:Performed By: #### CBC #### [facility] [address] [place] [address] Dr. Grzegorz Tellez #0.4 103/ulNormal0.0-0.7The CentervilleComment on above: Performed By: #### CBC #### [facility] [address] [place] [address] Dr. Grzegorz Reisosinophils/100 WBC (Bld)5.0 %Normal0.9-7.0The [place] Comment on above:Performed By: #### CBC #### [facility] [address] [place] [address] Dr. Grzegorz Reisrythrocyte distribution width (RBC) [Ratio]18.6 %Critically high 11.0-15.0[facility] HospitalComment on above:Performed By: #### CBC #### [facility] [address] [place] [address] Dr. Grzegorz WangHematocrit (Bld) [Volume fraction]35.7 %Critically low36.0-48.0 The CentervilleComment on above:Performed By: #### CBC #### [facility] [address] [place] [address] Dr. Grzegorz WangHemoglobin (Bld) [Mass/Vol]11.2 g/dLCritically low12.0-16.0[facility] HospitalComment on above:Performed By: #### CBC #### [facility] [address] [place] [address] Dr. Grzegorz Barbosa #0.04 10e3/ulCritically high0.00-0.03The [place] Comment on above:Performed By: #### CBC #### [facility] [address] [place] [address] Dr. Grzegorz Barbosa %0.5 %Normal0.0-0.5The CentervilleComment on above: Performed By: #### CBC #### [facility] [address] [address] [address] Grzegorz Soriano #1.9 103/ulNormal1.2-3.8The CentervilleComment on above:Performed By: #### CBC #### [facility] [address] [place] [address] Dr. Grzegorz Wilkinshocytes/100 WBC (Bld)22.2 %Kdlnhv91.5-60.0The CentervilleComment on above:Performed By: #### CBC #### [facility] [address] [place] [address] Dr. Grzegorz Bowers DIFF REQNONormalThe CentervilleComment on above: Performed By: #### CBC #### [facility] [address] [place] [address] Dr. Grzegorz Delaney (RBC) [Entitic mass]26.4 pgCritically low26.7-34.0The CentervilleComment on above:Performed By: #### CBC #### [facility] [address] [place] [address] Dr. Grzegorz Finley (RBC) [Mass/Vol]31.4 g/aWOjilvu77.9-35.2[facility] on above:Performed By: #### CBC #### [facility] [address] [place] [address] Dr. Grzegorz Ricks (RBC) [Entitic vol]84.2 zRAlseha97.0-99.0[facility] on above:Performed By: #### CBC #### [facility] [address] [place] [address] Dr. Grzegorz Wild #0.8 103/ulNormal0.3-0.8[facility] on above:Performed By: #### CBC #### [facility] [address] [place] [address] Dr. Grzegorz Lemusocytes/100 WBC (Bld)10.0 %Normal1.7-12.0The [facility] Comment on above:Performed By: #### CBC #### [facility] [address] [place] [address] Dr. Grzegorz Parada #5.2 103/ulNormal1.4-6.5The CentervilleComment on above:Performed By: #### CBC #### [facility] [address] [place] [address] Dr. Grzegorz Omerutrophils/100 WBC (Bld)61.7 %Npmhas05.0-75.0The CentervilleComment on above:Performed By: #### CBC #### [facility] [address] [place] [address] Dr. Grzegorz Corteslet mean volume (Bld) [Entitic vol]11.8 fLNormal9.5-13.5The CentervilleComment on above:Performed By: #### CBC #### [facility] [address] [place] [address] Dr. Grzegorz ArriolaT219 103/veXlfnwa019-189Xje CentervilleComment on above: Performed By: #### CBC #### [facility] [address] [place] [address] Dr. Grzegorz DobsonC4.24 106/ulNormal4.20-5.40The CentervilleComment on above:Performed By: #### CBC #### [facility] [address] [place] [address] Dr. Grzegorz CardonaBC8.4 103/ulNormal4.0-11.0The CentervilleComment on above: Performed By: #### CBC #### [facility] [address] [place] [address] Dr. Grzegorz Vaca LEUKOREDUCEDon 52-69-4982GNJ and Rh group Nom (Bld)Cross Match Result Compatible Unit Blood Type O Pos Unit Number [id number] Status Information Transfused Product ID Red Blood Cells Product Code [id number] Cross Match Result Compatible Blood Bank Notes CALLED SARATH GLYNN RN ON MEDSUR 10/17/21 @ 0850 Unit Blood Type O Neg Unit Number [id number] Status Information Transfused Product ID Red Blood Cells Product Code [id number] Health Montpelier HospitalComment on above:Performed By: #### CBC #### [facility] [address] [place] [address] Dr. Grzegorz New and Rh group Nom (Bld)Cross Match Result Compatible Unit Blood Type O Neg Unit Number [id number] Status Information Transfused Product ID Red Blood Cells Product Code [id number] Cross Match Result Compatible Unit Blood Type O Neg Unit Number [id number] Status Information Transfused Product ID Red Blood Cells Product Code [id number] Health DaytonComment on above:Performed By: #### CBC #### [facility] [address] [place] [address] Dr. Grzegorz Hurley AUTO DIFFon 12-18-0046VODE #0.0 103/ulNormal0.0-0.1The CentervilleComment on above:Performed By: #### CBC #### [facility] [address] [place] [address] Dr. Grzegorz Griffinsophils/100 WBC (Bld)0.7 %Normal0.2-2.0[facility] Comment on above:Performed By: #### CBC #### [facility] [address] [place] [address] Dr. Grzegorz Tellez #0.2 103/ulNormal0.0-0.7The CentervilleComment on above: Performed By: #### CBC #### [facility] [address] [place] [address] Dr. Grzegorz Reisosinophils/100 WBC (Bld)2.9 %Normal0.9-7.0The [facility] Comment on above:Performed By: #### CBC #### [facility] [address] [place] [address] Dr. Grzegorz Reisrythrocyte distribution width (RBC) [Ratio]17.8 %Critically high 11.0-15.0The CentervilleComment on above:Performed By: #### CBC #### [facility] [address] [address] [address] Grzegorz WangHematocrit (Bld) [Volume fraction]30.1 %Critically low36.0-48.0 The CentervilleComment on above:Performed By: #### CBC #### [facility] [address] [address] [address] Grzegorz WangHemoglobin (Bld) [Mass/Vol]9.6 g/dLCritically low12.0-16.0The [facility] HospitalComment on above:Performed By: #### CBC #### [facility] [address] [place] [address] Dr. Grzegorz WangIG #0.08 10e3/ulCritically high0.00-0.03The [facility] Comment on above:Performed By: #### CBC #### [facility] [address] [place] [address] Dr. Grzegorz WangIG %1.3 %Critically high0.0-0.5The CentervilleComment on above:Performed By: #### CBC #### [facility] [address] [address] [address] Grzegorz Soriano #1.8 103/ulNormal1.2-3.8The CentervilleComment on above:Performed By: #### CBC #### [facility] [address] [place] [address] Dr. Grzegorz Finleymphocytes/100 WBC (Bld)29.4 %Xsejtu78.5-60.0The CentervilleComment on above:Performed By: #### CBC #### [facility] [address] [address] [address] Grzegorz AriasUAL DIFF REQNONormalThe CentervilleComment on above: Performed By: #### CBC #### [facility] [address] [place] [address] Dr. Grzegorz Delaney (RBC) [Entitic mass]25.9 pgCritically low26.7-34.0The [facility] HospitalComment on above:Performed By: #### CBC #### [facility] [address] [address] [address] Grzegorz FinleyHC (RBC) [Mass/Vol]31.9 g/tXMiszmx20.9-35.2The CentervilleComment on above:Performed By: #### CBC #### [facility] [address] [place] [address] Dr. Grzegorz FinleyV (RBC) [Entitic vol]81.4 qIQbvaky23.0-99.0The CentervilleComment on above:Performed By: #### CBC #### [facility] [address] [place] [address] Dr. Grzegorz Wild #0.7 103/ulNormal0.3-0.8The [facility]ervilleComment on above:Performed By: #### CBC #### [facility] [address] [place] [address] Dr. Grzegorz Lemusocytes/100 WBC (Bld)11.9 %Normal1.7-12.0The [facility] Comment on above:Performed By: #### CBC #### [facility] [address] [place] [address] Dr. Grzegorz Parada #3.3 103/ulNormal1.4-6.5The [facility]ervilleComment on above:Performed By: #### CBC #### [facility] [address] [place] [address] Dr. Grzegorz Omerutrophils/100 WBC (Bld)53.8 %Blvrcm95.0-75.0The [facility]ervilleComment on above:Performed By: #### CBC #### [facility] [address] [place] [address] Dr. Grzegorz Corteslet mean volume (Bld) [Entitic vol]10.5 fLNormal9.5-13.5The CentervilleComment on above:Performed By: #### CBC #### [facility] [address] [place] [address] Dr. Grzegorz WangPLT206 103/lbXdapjm268-048Wpd CentervilleComment on above: Performed By: #### CBC #### [facility] [address] [address] [address] Grzegorz WangRBC3.70 106/ulCritically low4.20-5.40The [facility]ervilleComment on above:Performed By: #### CBC #### [facility] [address] [address] [address] Grzegorz WangWBC6.1 103/ulNormal4.0-11.0The [facility]ervilleComment on above: Performed By: #### CBC #### [facility] [address] [place] [address] Dr. Grzegorz Canela CHEM 8 (BAS METB)on 92-80-9750Hqmoi gap [Moles/Vol]9.6 mmol/LNormalThe CentervilleComment on above:Performed By: #### CBC #### [facility] [address] [place] [address] Dr. Grzegorz WangCalcium [Mass/Vol]8.5 mg/dLNormal8.5-10.1The [facility] Comment on above:Performed By: #### CBC #### [facility] [address] [place] [address] Dr. Grzegorz WnagChloride [Moles/Vol]113 mmol/LCritically eahv20-550Nfn CentervilleComment on above:Performed By: #### CBC #### [facility] [address] [place] [address] Dr. Grzegorz WangCO2 [Moles/Vol]26.6 mmol/DJvlmik06.0-32.0The [facility] Comment on above:Performed By: #### CBC #### [facility] [address] [place] [address] Dr. Grzegorz WangCreatinine [Mass/Vol]0.94 mg/dLNormal0.55-1.02The CentervilleComment on above:Performed By: #### CBC #### [facility] [address] [place] [address] Dr. Yilan ChangEGFR-AF LAO>60Normal>=60The CentervilleComment on above:Performed By: #### CBC #### [facility] [address] [place] [address] Dr. Lantigua ChangEGFR-NON AF QULNYXCJ56 mL/min/1.54k4Hehxyrflqa low>=60The [facility]ervilleComment on above:Performed By: #### CBC #### [facility] [address] [place] [address] Dr. Grzegorz WangGlucose [Mass/Vol]97 mg/dUAfgzvi25-095Sfm [facility] Comment on above:Performed By: #### CBC #### [facility] [address] [place] [address] Dr. Grzegorz WangPotassium [Moles/Vol]3.2 mmol/LCritically low3.5-5.1The [facility]ervilleComment on above:Performed By: #### CBC #### [facility] [address] [place] [address] Dr. Grzegorz Grantdium [Moles/Vol]146 mmol/LCritically jvny370-939Npv CentervilleComment on above:Performed By: #### CBC #### [facility] [address] [place] [address] Dr. Grzegorz WangUrea nitrogen [Mass/Vol]38.0 mg/dLCritically high7.0-18.0The [facility]ervilleComment on above:Performed By: #### CBC #### [facility] [address] [place] [address] Dr. Grzegorz Padron nitrogen/Creatinine [Mass ratio]40.4 mg/mgNormalThe CentervilleComment on above:Performed By: #### CBC #### [facility] [address] [place] [address] Dr. Grzegorz BaezC AUTO DIFFon 27-72-6026IMRS #0.1 103/ulNormal0.0-0.1The CentervilleComment on above:Performed By: #### CBC #### [facility] [address] [place] [address] Dr. Yilan ChangBasophils/100 WBC (Bld)0.9 %Normal0.2-2.0[facility] Comment on above:Performed By: #### CBC #### [facility] [address] [place] [address] Dr. Grzegorz Tellez #0.2 103/ulNormal0.0-0.7ThLima Memorial HospitalComment on above: Performed By: #### CBC #### [facility] [address] [place] [address] Dr. Grzegorz Reisosinophils/100 WBC (Bld)3.1 %Normal0.9-7.0[facility] Comment on above:Performed By: #### CBC #### [facility] [address] [place] [address] Dr. Grzegorz Reisrythrocyte distribution width (RBC) [Ratio]17.6 %Critically high 11.0-15.0[facility] HospitalComment on above:Performed By: #### CBC #### [facility] [address] [place] [address] Dr. Grzegorz WangHematocrit (Bld) [Volume fraction]35.7 %Critically low36.0-48.0 The [facility]ervilleComment on above:Performed By: #### CBC #### [facility] [address] [place] [address] Dr. Grzegorz WangHemoglobin (Bld) [Mass/Vol]11.5 g/dLCritically low12.0-16.0[facility] HospitalComment on above:Result Comment: rcvd. bloodPerformed By: #### CBC #### [facility] [address] [place] [address] Dr. Grzegorz Barbosa #0.18 10e3/ulCritically high0.00-0.03[facility] Comment on above:Performed By: #### CBC #### [facility] [address] [place] [address] Dr. Grzegorz Barbosa %2.6 %Critically high0.0-0.5The [facility]ervilleComment on above:Performed By: #### CBC #### [facility] [address] [address] [address] Grzegorz Soriano #1.5 103/ulNormal1.2-3.8The [facility]Comment on above:Performed By: #### CBC #### [facility] [address] [address] [address] Grzegorz Finleymphocytes/100 WBC (Bld)21.4 %Nqzxfp14.5-60.0The [facility]ervilleComment on above:Performed By: #### CBC #### [facility] [address] [address] [address] Grzegorz AriasUAL DIFF REQNONormalThe [place]Comment on above: Performed By: #### CBC #### [facility] [address] [place] [address] Dr. Grzegorz Finley (RBC) [Entitic mass]26.0 pgCritically low26.7-34.0The [facility]Comment on above:Performed By: #### CBC #### [facility] [address] [place] [address] Dr. Grzegorz Finley (RBC) [Mass/Vol]32.2 g/jXCwgxkd92.9-35.2The [facility]ervilleComment on above:Performed By: #### CBC #### [facility] [address] [place] [address] Dr. Grzegorz Finley (RBC) [Entitic vol]80.6 fLCritically low81.0-99.0The [facility]ervilleComment on above:Performed By: #### CBC #### [facility] [address] [place] [address] Dr. Grzegorz Wild #0.7 103/ulNormal0.3-0.8The [facility]Comment on above:Performed By: #### CBC #### [facility] [address] [place] [address] Dr. Grzegorz Lemusocytes/100 WBC (Bld)10.8 %Normal1.7-12.0The [facility] Comment on above:Performed By: #### CBC #### [facility] [address] [address] [address] Grzegorz Parada #4.2 103/ulNormal1.4-6.5The [facility]ervilleComment on above:Performed By: #### CBC #### [facility] [address] [address] [address] Grzegorz Omerutrophils/100 WBC (Bld)61.2 %Ksifrb68.0-75.0The [facility]Comment on above:Performed By: #### CBC #### [facility] [address] [place] [address] Dr. Grzegorz Corteslet mean volume (Bld) [Entitic vol]9.9 fLNormal9.5-13.5The [facility]ervilleComment on above:Performed By: #### CBC #### [facility] [address] [place] [address] Dr. Grzegorz WangPLT228 103/akLmkffi814-859Avq [facility]ervilleComment on above: Performed By: #### CBC #### [facility] [address] [place] [address] Dr. Grzegorz WangRBC4.43 106/ulNormal4.20-5.40The [facility] Hospitalment on above:Performed By: #### CBC #### [facility] [address] [place] [address] Dr. Grzegorz WangWBC6.9 103/ulNormal4.0-11.0The [facility]ervilleComment on above: Performed By: #### CBC #### [facility] [address] [place] [address] Dr. Grzegorz WangBASO #0.0 103/ulNormal0.0-0.1The [facility]Comment on above:Performed By: #### CBC #### [facility] [address] [place] [address] Dr. Grzegorz WangBasophils/100 WBC (Bld)0.8 %Normal0.2-2.0The [facility] Comment on above:Performed By: #### CBC #### [facility] [address] [place] [address] Dr. Grzegorz Tellez #0.1 103/ulNormal0.0-0.7The [facility]ervilleComment on above: Performed By: #### CBC #### [facility] [address] [place] [address] Dr. Grzegorz Reisosinophils/100 WBC (Bld)2.4 %Normal0.9-7.0The [facility] Comment on above:Performed By: #### CBC #### [facility] [address] [place] [address] Dr. Grzegorz Reisrythrocyte distribution width (RBC) [Ratio]16.8 %Critically high 11.0-15.0The [facility]ervilleComment on above:Performed By: #### CBC #### [facility] [address] [place] [address] Dr. Grzegorz WangHematocrit (Bld) [Volume fraction]23.2 %Critically low36.0-48.0 The [facility]ervilleComment on above:Performed By: #### CBC #### [facility] [address] [place] [address] Dr. Grzegorz WangHemoglobin (Bld) [Mass/Vol]7.4 g/dLCritically low12.0-16.0[facility] HospitalComment on above:Performed By: #### CBC #### [facility] [address] [place] [address] Dr. Grzegorz Barbosa #0.05 10e3/ulCritically high0.00-0.03The [facility] Comment on above:Performed By: #### CBC #### [facility] [address] [place] [address] Dr. Grzegorz Barbosa %1.0 %Critically high0.0-0.5The [facility]ervilleComtr[facility] on above:Performed By: #### CBC #### [facility] [address] [place] [address] Dr. Grzegorz Soriano #1.4 103/ulNormal1.2-3.8The [facility] HospitalComment on above:Performed By: #### CBC #### [facility] [address] [address] [address] Grzegorz Finleymphocytes/100 WBC (Bld)27.8 %Jcyzdq48.5-60.0The [facility]ervilleComment on above:Performed By: #### CBC #### [facility] [address] [place] [address] Dr. Grzegorz Bowers DIFF REQNONormalThe [facility] HospitalComment on above: Performed By: #### CBC #### [facility] [address] [place] [address] Dr. Grzegorz Finley (RBC) [Entitic mass]25.6 pgCritically low26.7-34.0The [facility]ervilleComment on above:Performed By: #### CBC #### [facility] [address] [place] [address] Dr. Grzegorz Finley (RBC) [Mass/Vol]31.9 g/jAFyworb78.9-35.2The [facility]ervilleComment on above:Performed By: #### CBC #### [facility] [address] [place] [address] Dr. Grzegorz Ricks (RBC) [Entitic vol]80.3 fLCritically low81.0-99.0The [facility]ervilleComment on above:Performed By: #### CBC #### [facility] [address] [place] [address] Dr. Grzegorz Wild #0.6 103/ulNormal0.3-0.8The [facility]ervilleComment on above:Performed By: #### CBC #### [facility] [address] [place] [address] Dr. Grzegorz Lemusocytes/100 WBC (Bld)11.6 %Normal1.7-12.0The [facility] Comment on above:Performed By: #### CBC #### [facility] [address] [place] [address] Dr. Grzegorz Parada #2.8 103/ulNormal1.4-6.5The [facility]ervilleComment on above:Performed By: #### CBC #### [facility] [address] [place] [address] Dr. Grzegorz WangNeutrophils/100 WBC (Bld)56.4 %Wkmney25.0-75.0The [facility]ervilleComment on above:Performed By: #### CBC #### [facility] [address] [place] [address] Dr. Grzegorz WangPlatelet mean volume (Bld) [Entitic vol]10.0 fLNormal9.5-13.5The [facility]ervilleComment on above:Performed By: #### CBC #### [facility] [address] [place] [address] Dr. Grzegorz WangPLT193 103/zfNcoyzs139-437Tua [facility]ervilleComment on above: Performed By: #### CBC #### [facility] [address] [place] [address] Dr. Grzegorz WangRBC2.89 106/ulCritically low4.20-5.40The [facility]ervilleComment on above:Performed By: #### CBC #### [facility] [address] [place] [address] Dr. Grzegorz WangWBC4.9 103/ulNormal4.0-11.0The [facility]ervilleComtr[facility] on above: Performed By: #### CBC #### [facility] [address] [place] [address] Dr. Grzegorz WangPROF CHEM 8 (BAS METB)on 96-88-9508Ndzad gap [Moles/Vol]11.4 mmol/LNormalThe CentervilleComment on above:Performed By: #### PALOMA, LIPA #### [facility] [address] [place] [address] Dr. Grzegorz WangCalcium [Mass/Vol]8.3 mg/dLCritically low8.5-10.1The [facility]ervilleComment on above:Performed By: #### PALOMA, LIPA #### [facility] [address] [place] [address] Dr. Grzegorz WangChloride [Moles/Vol]116 mmol/LCritically buoo22-586KvgDetwiler Memorial HospitalComment on above:Performed By: #### PALOMA, LIPA #### [facility] [address] [address] [address] Grzegorz WangCO2 [Moles/Vol]21.1 mmol/ZRdzgun53.0-32.0[facility] Comment on above:Performed By: #### PALOMA, LIPA #### [facility] [address] [place] [address] Dr. Grzegorz WangCreatinine [Mass/Vol]1.07 mg/dLCritically high0.55-1.02The [facility]ervilleComment on above:Performed By: #### PALOMA, LIPA #### [facility] [address] [place] [address] Dr. Lantigua ChangEGFR-AF LAO>60Normal>=60The [facility]ervilleComment on above:Performed By: #### PALOMA, LIPA #### [facility] [address] [place] [address] Dr. Grzegorz ReisGFR-NON AF OEQJEVQC70 mL/min/1.88e3Mkofujlwoh low>=60The [facility]ervilleComment on above:Performed By: #### PALOMA, LIPA #### [facility] [address] [place] [address] Dr. Grzegorz WangGlucose [Mass/Vol]90 mg/rJTlisyb27-407CboDetwiler Memorial Hospital Comment on above:Performed By: #### PALOMA, LIPA #### [facility] [address] [place] [address] Dr. Grzegorz WangPotassium [Moles/Vol]3.5 mmol/LNormal3.5-5.1The [facility] Comment on above:Performed By: #### PALOMA, LIPA #### [facility] [address] [place] [address] Dr. Grzegorz WangSodium [Moles/Vol]145 mmol/ELptnxz099-353Pol [facility] Comment on above:Performed By: #### PALOMA, LIPA #### [facility] [address] [place] [address] Dr. Grzegorz Padron nitrogen [Mass/Vol]59.0 mg/dLCritically high7.0-18.0The CentervilleComment on above:Performed By: #### PALOMA, LIPA #### [facility] [address] [place] [address] Dr. Grzegorz Padron nitrogen/Creatinine [Mass ratio]55.1 mg/mgNormalThe CentervilleComment on above:Performed By: #### PALOMA, LIPA #### [facility] [address] [place] [address] Dr. Grzegorz WangAMYLASEon 74-52-7111Uivrusi [Catalytic activity/Vol]41 U/LNormal 25-115The [facility]ervilleComment on above:Performed By: #### PALOMA, LIPA #### [facility] [address] [place] [address] Dr. Grzegorz Hurley AUTO DIFFon 91-47-6555RSSU #0.1 103/ulNormal0.0-0.1The CentervilleComment on above:Performed By: #### PALOMA, LIPA #### [facility] [address] [place] [address] Dr. Grzegorz Griffinsophils/100 WBC (Bld)0.7 %Normal0.2-2.0Detwiler [facility] Comment on above:Performed By: #### PALOMA, LIPA #### [facility] [address] [place] [address] Dr. Grzegorz Tellez #0.2 103/ulNormal0.0-0.7The [facility] on above: Performed By: #### PALOMA, LIPA #### [facility] [address] [place] [address] Dr. Grzegorz Reisosinophils/100 WBC (Bld)2.4 %Normal0.9-7.0The [facility] Comment on above:Performed By: #### PALOMA, LIPA #### [facility] [address] [place] [address] Dr. Grzegorz Reisrythrocyte distribution width (RBC) [Ratio]17.1 %Critically high 11.0-15.0The CentervilleComment on above:Performed By: #### PALOMA, LIPA #### [facility] [address] [place] [address] Dr. Grzegorz WangHematocrit (Bld) [Volume fraction]26.0 %Critically low36.0-48.0 The CentervilleComment on above:Performed By: #### PALOMA, LIPA #### [facility] [address] [place] [address] Dr. rGzegorz WangHemoglobin (Bld) [Mass/Vol]8.4 g/dLCritically low12.0-16.0The CentervilleComment on above:Performed By: #### PALOMA, LIPA #### [facility] [address] [place] [address] Dr. Grzegorz Barbosa #0.03 10e3/ulNormal0.00-0.03The CentervilleComment on above:Performed By: #### PALOMA, LIPA #### [facility] [address] [place] [address] Dr. Grzegorz Barbosa %0.4 %Normal0.0-0.5The CentervilleComment on above: Performed By: #### PALOMA, LIPA #### [facility] [address] [place] [address] Dr. Grzegorz WilkinsH #1.9 103/ulNormal1.2-3.8The CentervilleComment on above:Performed By: #### PALOMA, LIPA #### [facility] [address] [place] [address] Dr. Grzegorz Finleymphocytes/100 WBC (Bld)27.3 %Afjflx64.5-60.0The CentervilleComment on above:Performed By: #### PALOMA, LIPA #### [facility] [address] [place] [address] Dr. Grzegorz AriasUAL DIFF REQNONormalThe CentervilleComment on above: Performed By: #### PALOMA, LIPA #### [facility] [address] [place] [address] Dr. Grzegorz Finley (RBC) [Entitic mass]26.0 pgCritically low26.7-34.0The [facility] HospitalComment on above:Performed By: #### PALOMA, LIPA #### [facility] [address] [place] [address] Dr. Grzegorz Finley (RBC) [Mass/Vol]32.3 g/zQHoegcq93.9-35.2The [facility] HospitalComment on above:Performed By: #### PALOMA, LIPA #### [facility] [address] [place] [address] Dr. Grzegorz Finley (RBC) [Entitic vol]80.5 fLCritically low81.0-99.0The [facility] HospitalComment on above:Performed By: #### PALOMA, LIPA #### [facility] [address] [place] [address] Dr. Grzegorz Wild #0.7 103/ulNormal0.3-0.8The CentervilleComment on above:Performed By: #### PALOMA, LIPA #### [facility] [address] [place] [address] Dr. Grzegorz Lemusocytes/100 WBC (Bld)10.5 %Normal1.7-12.0The [facility] Comment on above:Performed By: #### PALOMA, LIPA #### [facility] [address] [place] [address] Dr. Grzegorz Parada #4.1 103/ulNormal1.4-6.5The CentervilleComment on above:Performed By: #### PALOMA, LIPA #### [facility] [address] [place] [address] Dr. Grzegorz Reisophils/100 WBC (Bld)58.7 %Kdokao82.0-75.0The CentervilleComment on above:Performed By: #### PALOMA, LIPA #### [facility] [address] [place] [address] Dr. Grzegorz Corteslet mean volume (Bld) [Entitic vol]10.4 fLNormal9.5-13.5The CentervilleComment on above:Performed By: #### PALOMA LIPA #### [facility] [address] [address] [address] Grzegorz WangPLT217 103/ulKxufeh600-938Xxu CentervilleComment on above: Performed By: #### PALOMA LIPA #### [facility] [address] [address] [address] Grzegorz WangRBC3.23 106/ulCritically low4.20-5.40The CentervilleComment on above:Performed By: #### PALOMA LIPA #### [facility] [address] [place] [address] Dr. Grzegorz WangWBC7.1 103/ulNormal4.0-11.0The CentervilleComment on above: Performed By: #### PALOMA LIPA #### [facility] [address] [place] [address] Dr. Grzegorz WangBASO #0.0 103/ulNormal0.0-0.1The CentervilleComment on above:Performed By: #### CBC #### [facility] [address] [place] [address] Dr. Grzegorz Griffinsophils/100 WBC (Bld)0.5 %Normal0.2-2.0The [facility] Comment on above:Performed By: #### CBC #### [facility] [address] [place] [address] Dr. Grzegorz Tellez #0.1 103/ulNormal0.0-0.7The CentervilleComment on above: Performed By: #### CBC #### [facility] [address] [address] [address] Grzegorz Reisosinophils/100 WBC (Bld)0.8 %Critically low0.9-7.0The CentervilleComment on above:Performed By: #### CBC #### [facility] [address] [place] [address] Dr. Grzegorz Reisrythrocyte distribution width (RBC) [Ratio]16.8 %Critically high 11.0-15.0The CentervilleComment on above:Performed By: #### CBC #### [facility] [address] [place] [address] Dr. Grzegorz WangHematocrit (Bld) [Volume fraction]19.5 %Critically low36.0-48.0 The CentervilleComment on above:Performed By: #### CBC #### [facility] [address] [place] [address] Dr. Grzegorz WangHemoglobin (Bld) [Mass/Vol]6.0 g/dLCritically low12.0-16.0The CentervilleComment on above:Result Comment: repeatedPerformed By: #### CBC #### [facility] [address] [place] [address] Dr. Grzegorz Barbosa #0.05 10e3/ulCritically high0.00-0.03The [facility] Comment on above:Performed By: #### CBC #### [facility] [address] [place] [address] Dr. Grzegorz Barbosa %0.6 %Critically high0.0-0.5The [facility] on above:Performed By: #### CBC #### [facility] [address] [place] [address] Dr. Grzegorz Soriano #1.8 103/ulNormal1.2-3.8The CentervilleComment on above:Performed By: #### CBC #### [facility] [address] [place] [address] Dr. Grzegorz Wilkinshocytes/100 WBC (Bld)21.6 %Eqnqaf99.5-60.0The CentervilleComment on above:Performed By: #### CBC #### [facility] [address] [place] [address] Dr. Grzegorz AriasUAL DIFF REQNONormalThe CentervilleComment on above: Performed By: #### CBC #### [facility] [address] [address] [address] Grzegorz Finley (RBC) [Entitic mass]23.4 pgCritically low26.7-34.0The CentervilleComment on above:Performed By: #### CBC #### [facility] [address] [place] [address] Dr. Grzegorz Finley (RBC) [Mass/Vol]30.6 g/rHUvonor24.9-35.2The [facility] HospitalComment on above:Performed By: #### CBC #### [facility] [address] [place] [address] Dr. Grzegorz Finley (RBC) [Entitic vol]76.6 fLCritically low81.0-99.0The CentervilleComment on above:Performed By: #### CBC #### [facility] [address] [place] [address] Dr. Grzegorz Wild #0.6 103/ulNormal0.3-0.8The CentervilleComment on above:Performed By: #### CBC #### [facility] [address] [place] [address] Dr. Grzegorz Lemusocytes/100 WBC (Bld)7.3 %Normal1.7-12.0The [facility] Comment on above:Performed By: #### CBC #### [facility] [address] [place] [address] Dr. Grzegorz OmerUT #5.9 103/ulNormal1.4-6.5The CentervilleComment on above:Performed By: #### CBC #### [facility] [address] [place] [address] Dr. Grzegorz Omerutrophils/100 WBC (Bld)69.2 %Niyhpi23.0-75.0The CentervilleComment on above:Performed By: #### CBC #### [facility] [address] [place] [address] Dr. Grzegorz Kwan mean volume (Bld) [Entitic vol]10.5 fLNormal9.5-13.5The CentervilleComment on above:Performed By: #### CBC #### [facility] [address] [address] [address] Grzegorz WangPLT288 103/ziGocjac595-798Eln CentervilleComment on above: Performed By: #### CBC #### [facility] [address] [address] [address] Grzegorz WangRBC2.52 106/ulCritically low4.20-5.40The CentervilleComment on above:Performed By: #### CBC #### [facility] [address] [address] [address] Grzegorz WangWBC8.5 103/ulNormal4.0-11.0The CentervilleComment on above: Performed By: #### CBC #### [facility] [address] [address] [address] Grzegorz WangCT ABD/PELVIS WO CONon [id number] ABD/PELVIS WO CONEXAMINATION: CT ABD/PELVIS WO CON, [...] Electronically authenticated by: LYNN OLSON Date: 2021-10-16 13:53NormKettering Health DaytonCovid-19 PCR (CVDTBH)on [id number]-CoV-2 (COVID-19) RNA SIOBHAN+probe Ql (Unsp spec)Not detectedNormalNOT DETECTEDDetwiler Memorial Hospital Comment on above:Result Comment: When diagnostic testing [...] for this test is supported by the Television Technician of Health and Human Service's declaration [...] longer be used).Performed By: #### ERUR #### [facility] [address] [place] [address] Dr. Grzegorz Ribeiro URINE PROFILEon [id number] Ql (U)NegativeNormal NEGATIVEDetwiler Memorial HospitalComment on above:Performed By: #### LUCHO DOWA #### [facility] [address] [place] [address] Dr. Grzegorz Goldman (U)CLEARNormalCLEARDetwiler Memorial HospitalComtrinity health [facility] hospital on above: Performed By: #### PALOMA LIPA #### [facility] [address] [place] [address] Dr. Grzegorz Delvalle (U)LT. YELLOWNormalYELLOWDetwiler Memorial HospitalComment on above:Performed By: #### PALOMA LIPA #### [facility] [address] [place] [address] Dr. Grzegorz Dawson micrscopic examination will be performed if indicated. NormalDetwiler Memorial HospitalComment on above:Performed By: #### PALOMA, LIPA #### [facility] [address] [place] [address] Dr. Grzegorz WangGlucose Ql (U)NegativeNormalNEGATIVEThe [facility] HospitalComment on above:Performed By: #### PALOMA, LIPA #### [facility] [address] [address] [address] Grzegorz WangHemoglobin Ql (U)SMALLAbnormalNEGATIVEDetwiler Memorial Hospital Comment on above:Performed By: #### PALOMA, LIPA #### [facility] [address] [address] [address] Grzegorz WangKetones Ql (U)NegativeNormalNEGATIVEDetwiler Memorial HospitalComment on above:Performed By: #### PALOMA, LIPA #### [facility] [address] [address] [address] Grzegorz WangLEUKOCYTESTRACEAbnormalNEGATIVEDetwiler Memorial HospitalComment on above:Performed By: #### PALOMA, LIPA #### [facility] [address] [place] [address] Dr. Grzegorz WangNitrite Ql (U)NegativeNormalNEGATIVEDetwiler Memorial HospitalComment on above:Performed By: #### PALOMA, LIPA #### [facility] [address] [place] [address] Dr. Grzegorz WangpH (U)5.5 [pH]Normal5-9Detwiler Memorial HospitalComment on above: Performed By: #### PALOMA, LIPA #### [facility] [address] [place] [address] Dr. Grzegorz WangSPEC GRAVITY1.103Chfahw5.005-<=1.025The CentervilleComment on above:Performed By: #### PALOMA, LIPA #### [facility] [address] [place] [address] Dr. Grzegorz Jones PROTEINNegativeNormalNEGATIVE/ TRACEDetwiler Memorial Hospital Comment on above:Performed By: #### PALOMA, LIPA #### [facility] [address] [place] [address] Dr. Grzegorz Durham MICRO INDINDICATEDNoalThLima Memorial HospitalComment on above: Performed By: #### PALOMA, LIPA #### [facility] [address] [address] [address] Grzegorz Hsubilevangelina Qn (U)0.2 {Lidya'U}/dLNormal0.2 - 1.0The [facility] Hospitalment on above:Performed By: #### PALOMA, LIPA #### [facility] [address] [place] [address] Dr. Grzegorz WangLIPASEon 80-24-5315Etviwf [Catalytic activity/Vol]77.0 U/LNormal 73.0-393.0The CentervilleComment on above:Performed By: #### PALOMA, LIPA #### [facility] [address] [place] [address] Dr. Grzegorz Mayfield BLD IMMUNO SCREENon 17-39-8918TYYNQN BLOODPositiveAbnormal NEGATIVEThe [facility]Com[facility] on above:Performed By: #### PALOMA LIPA #### [facility] [address] [place] [address] Dr. Grzegorz WangPROF 14(COMP METB)on 27-95-3438Unxgpmz [Mass/Vol]3.4 g/dLNormal 3.4-5.0The [facility] Hospitalment on above:Performed By: #### CBC #### [facility] [address] [place] [address] Dr. Grzegorz WangAlbumin/Globulin [Mass ratio]1.2 {ratio}NormalThe [facility]Com[facility] on above:Performed By: #### CBC #### [facility] [address] [place] [address] Dr. Grzegorz Oleary [Catalytic activity/Vol]77 U/KWskerm62-183Lpc [facility] on above:Performed By: #### CBC #### [facility] [address] [place] [address] Dr. Grzegorz Cummings [Catalytic activity/Vol]18 U/EXqgije57-20Zkw [facility] on above:Performed By: #### CBC #### [facility] [address] [place] [address] Dr. Grzegorz Peters gap [Moles/Vol]15.3 mmol/LNormalThe [facility] Comment on above:Performed By: #### CBC #### [facility] [address] [address] [address] Grzegorz WangAST [Catalytic activity/Vol]17 U/SDjohwm90-14Sqk CentervilleComment on above:Performed By: #### CBC #### [facility] [address] [address] [address] Grzegorz WangBilirubin [Mass/Vol]0.4 mg/dLNormal0.2-1.0[facility] Comment on above:Performed By: #### CBC #### [facility] [address] [address] [address] Grzegorz WangCalcium [Mass/Vol]8.5 mg/dLNormal8.5-10.1[facility] Comment on above:Performed By: #### CBC #### [facility] [address] [address] [address] Grzegorz WangChloride [Moles/Vol]104 mmol/BAayyes48-495Yvj [facility] Comment on above:Performed By: #### CBC #### [facility] [address] [address] [address] Grzegorz WangCO2 [Moles/Vol]21.2 mmol/UMedjol25.0-32.0[facility] Comment on above:Performed By: #### CBC #### [facility] [address] [address] [address] Grzegorz WangCreatinine [Mass/Vol]1.68 mg/dLCritically high0.55-1.02The CentervilleComment on above:Performed By: #### CBC #### [facility] [address] [address] [address] Grzegorz ReisGFR-AF YCGJJQWI70 mL/min/1.67g3Ljpjtjvfvx low>=60The CentervilleComment on above:Performed By: #### CBC #### [facility] [address] [address] [address] Grzegorz ReisGFR-NON AF RCLUZYUF76 mL/min/1.22e9Yigtljreun low>=60The [facility] Hospitalment on above:Performed By: #### CBC #### [facility] [address] [address] [address] Grzegorz WangGlobulin (S) [Mass/Vol]2.8 g/dLNoMercy Health West Hospital on above:Performed By: #### CBC #### [facility] [address] [address] [address] Grzegorz WangGlucose [Mass/Vol]101 mg/kDOvgsvk22-172EbtDetwiler Memorial Hospital Comment on above:Performed By: #### CBC #### [facility] [address] [address] [address] Grzegorz WangPotassium [Moles/Vol]3.5 mmol/LNormal3.5-5.1[facility] Comment on above:Performed By: #### CBC #### [facility] [address] [address] [address] Grzegorz WangProtein [Mass/Vol]6.2 g/dLCritically low6.4-8.2[facility] on above:Performed By: #### CBC #### [facility] [address] [address] [address] Grzegorz WangSodium [Moles/Vol]137 mmol/PJmehpx667-415LlzDetwiler Memorial Hospital Comment on above:Performed By: #### CBC #### [facility] [address] [address] [address] Grzegorz WangUrea nitrogen [Mass/Vol]83.0 mg/dLCritically high7.0-18.0[facility] on above:Result Comment: repeatedPerformed By: #### CBC #### [facility] [address] [address] [address] Grzegorz WangUrea nitrogen/Creatinine [Mass ratio]49.4 mg/mgNoParkview Health Montpelier HospitalComtrinity health [facility] hospital on above:Performed By: #### CBC #### [facility] [address] [address] [address] Grzegorz WangPROTIMEon 10-64-1453PRV Coag (PPP) [Relative time]0.99 {INR} NormalDetwiler Memorial HospitalComment on above:Performed By: #### PT, PTT #### [facility] [address] [place] [address] Dr. Grzegorz Hercules GUIDELINESSEE BELOWBlanchard Valley Health System [facility]ard Valley HospitalComment on above:Result Comment: DESIRED INR: 2.0 - 3.0 CONDITIONS NOT LISTED BELOW 2.5 - 3.5 FOR PROSTHETIC HEART VALVE REPLACEMENT 2.5 - 3.5 RECURRENT THROMBOSIS Performed By: #### PT, PTT #### [facility] [address] [place] [address] Dr. Grzegorz WangPT Coag (PPP) [Time]10.7 sNormal9.0-11.6The [facility] Comment on above:Performed By: #### PT, PTT #### [facility] [address] [place] [address] Dr. Grzegorz Aguilar 24-76-5841qPXA Coag (Bld) [Time]23.5 sYvblyp52.3-36.2[facility] Hospital Daytonment on above:Performed By: #### PT, PTT #### [facility] [address] [place] [address] Dr. Grzegorz Solomon AND SCREENon 07-32-3792LZXI AND SCREENNegativeBlanchard Valley Health System [facility] HospitalComtr[facility] on above:Performed By: #### CBC #### [facility] [address] [place] [address] Dr. Grzegorz De Oliveira MICROSCOPIC ONLYon [id number] SEENSaint Joseph Hospital Of KirkwoodalNONE SEENDetwiler Memorial HospitalComtrinity health [facility] hospital on above:Performed By: #### PALOMA, LIPA #### [facility] [address] [place] [address] Dr. Grzegorz Valentin identified Cx Nom (U)NOT INDICATEDClinton Memorial Hospital on above:Performed By: #### PALOMA, LIPA #### [facility] [address] [place] [address] Dr. Grzegorz Go SEENSaint Joseph Hospital Of KirkwoodalNONE SEENDetwiler Memorial HospitalComtrinity health [facility] hospital on above:Performed By: #### PALOMA, LIPA #### [facility] [address] [address] [address] Grzegorz Brenner LM Nom (Urine sed)NONE SEENNormalNONE SEENDetwiler Memorial HospitalComtrinity health [facility] hospital on above:Performed By: #### PALOMA, LIPA #### [facility] [address] [address] [address] Lantigua ChangEpithelial cells LM Ql (Urine sed)RARENormalNONE SEEN /RAREThe CentervilleComment on above:Performed By: #### PALOMA, LIPA #### [facility] [address] [address] [address] Grzegorz Strange SEENNormalNONE SEENThe [facility]Comtr[facility] on above:Performed By: #### PALOMA, LIPA #### [facility] [address] [place] [address] Dr. Grzegorz Eason SEENAbnormal0-2The CentervilleComment on above: Performed By: #### PALOMA, LIPA #### [facility] [address] [address] [address] Grzegorz CardonaBCALMAE SEENNormalNONE SEENThe [facility]Comtr[facility] on above: Performed By: #### PALOMA, LIPA #### [facility] [address] [address] [address] Grzegorz Webb 30-69-0056Critqengpac peptide B (Bld) [Mass/Vol]140.0 pg/mL Normal<=900.0The [facility]Com[facility] on above:Performed By: #### CBC #### [facility] [address] [address] [address] Grzegorz Navarrete BAMBI ADMITon 11-50-7791UY [Catalytic activity/Vol]121 U/L Yfsatb34-534Axz [facility] on above:Performed By: #### CBC #### [facility] [address] [place] [address] Dr. Grzegorz Waters.MB [Mass/Vol]2.44 ng/mLNormal<=3.60The [facility] Comment on above:Performed By: #### CBC #### [facility] [address] [address] [address] Grzegorz MehtaTROP9.8 pg/mLNormal4.0-51.3The CentervilleComment on above:Result Comment: CUT-OFF POINTS HAVE BEEN ESTABLISHED BASED ON THE FOURTH UNIVERSAL DEFINITIONS OF MYOCARDIAL INFARCTION. THE UPPER REFERENCE LIMIT (URL) OF TROPONIN, DEFINED THE 99TH PERCENTILE OF cTnI DISTRIBUTION IN A REFERENCE POPULATION, HAS BEEN CONFIRMED THE DECISION THRESHOLD FOR CT DIAGNOSIS.Performed By: #### CBC #### [facility] [address] [place] [address] Dr. Grzegorz WangMYO109 ng/mLCritically high9-82Det[facility]iler Memorial HospitalComment on above:Performed By: #### CBC #### [facility] [address] [place] [address] Dr. Grzegorz BaezC AUTO DIFFon 15-55-3254SCUI #0.0 103/ulNormal0.0-0.1Detwiler Memorial HospitalComment on above:Performed By: #### CBC #### [facility] [address] [address] [address] Grzegorz WangBasophils/100 WBC (Bld)0.5 %Normal0.2-2.0[facility] Comment on above:Performed By: #### CBC #### [facility] [address] [place] [address] Dr. Grzegorz Tellez #0.1 103/ulNormal0.0-0.7The CentervilleComment on above: Performed By: #### CBC #### [facility] [address] [place] [address] Dr. Grzegorz Reisosinophils/100 WBC (Bld)3.1 %Normal0.9-7.0The [facility] Comment on above:Performed By: #### CBC #### [facility] [address] [place] [address] Dr. Grzegorz Reisrythrocyte distribution width (RBC) [Ratio]16.0 %Critically high 11.0-15.0The [facility]ateryna HospitalComment on above:Performed By: #### CBC #### [facility] [address] [place] [address] Dr. Grzegorz Srivastavaatocrit (Bld) [Volume fraction]32.0 %Critically low36.0-48.0 The CentervilleComment on above:Performed By: #### CBC #### [facility] [address] [place] [address] Dr. Grzegorz WangHemoglobin (Bld) [Mass/Vol]10.1 g/dLCritically low12.0-16.0The CentervilleComment on above:Performed By: #### CBC #### [facility] [address] [place] [address] Dr. Grzegorz Barbosa #0.01 10e3/ulNormal0.00-0.03The CentervilleComment on above:Performed By: #### CBC #### [facility] [address] [place] [address] Dr. Grzegorz Barbosa %0.3 %Normal0.0-0.5The CentervilleComment on above: Performed By: #### CBC #### [facility] [address] [place] [address] Dr. Grzegorz Soriano #1.7 103/ulNormal1.2-3.8The [facility]ervilleComtr[facility] on above:Performed By: #### CBC #### [facility] [address] [place] [address] Dr. Grzegorz Wilkinshocytes/100 WBC (Bld)43.1 %Chcyba00.5-60.0Detwiler Memorial HospitalComment on above:Performed By: #### CBC #### [facility] [address] [place] [address] Dr. Grzegorz AriasUAL DIFF REQNONormalThe CentervilleComment on above: Performed By: #### CBC #### [facility] [address] [place] [address] Dr. Grzegorz Delaney (RBC) [Entitic mass]23.9 pgCritically low26.7-34.0The CentervilleComment on above:Performed By: #### CBC #### [facility] [address] [place] [address] Dr. Grzegorz Finley (RBC) [Mass/Vol]31.6 g/bKDqgfiq77.9-35.2The CentervilleComment on above:Performed By: #### CBC #### [facility] [address] [place] [address] Dr. Grzegorz Finley (RBC) [Entitic vol]75.8 fLCritically low81.0-99.0The CentervilleComment on above:Performed By: #### CBC #### [facility] [address] [place] [address] Dr. Grzegorz Wild #0.4 103/ulNormal0.3-0.8The CentervilleComment on above:Performed By: #### CBC #### [facility] [address] [place] [address] Dr. Grzegorz Lemusocytes/100 WBC (Bld)9.7 %Normal1.7-12.0The [facility] Comment on above:Performed By: #### CBC #### [facility] [address] [place] [address] Dr. Grzegorz Parada #1.7 103/ulNormal1.4-6.5The CentervilleComment on above:Performed By: #### CBC #### [facility] [address] [place] [address] Dr. Grzegorz Reisophils/100 WBC (Bld)43.3 %Bctzch22.0-75.0The CentervilleComment on above:Performed By: #### CBC #### [facility] [address] [place] [address] Dr. Grzegorz Corteslet mean volume (Bld) [Entitic vol]10.1 fLNormal9.5-13.5The CentervilleComment on above:Performed By: #### CBC #### [facility] [address] [place] [address] Dr. Grzegorz ArriolaT179 103/ejQpsnti911-028Xfi CentervilleComment on above: Performed By: #### CBC #### [facility] [address] [place] [id number] Grzegorz WangRBC4.22 106/ulNormal4.20-5.40The CentervilleComment on above:Performed By: #### CBC #### [facility] [address] [place], [place] [address] Dr. Grzegorz WangWBC3.8 103/ulCritically low4.0-11.0The CentervilleComment on above:Performed By: #### CBC #### [facility] [address] [place] [id number] Grzegorz WangCT CSPINE WO CONon [id number] CSPINE WO CONEXAMINATION: CT CSPINE WO CON HISTORY: Unspecified fall [...] Electronically authenticated by: JEAN-PIERRE GIRALDO Date: 2021-09-02 19:33[facility] [facility]CT [facility] WOon [id number] STROKE HEAD WOEXAMINATION: CT STROKE HEAD WO [...] Electronically authenticated by: JEAN-PIERRE GIRALDO Date: 2021-09-02 19:29NoParkview Health Montpelier HospitalCovid-19 PCR (CVDTBH)on [id number]-CoV-2 (COVID-19) RNA SIOBHAN+probe Ql (Unsp spec)DetectedCritically abnormalNOT DETECTEDThe [facility] on above:Result Comment: This test is not yet approved or cleared by the [place] FDA. When there are no FDA-approved or cleared tests available, and other criteria are met, FDA can make tests available under an emergency access mechanism called an Emergency Use Authorization (EUA). The EUA for this test is supported by the [place] of Health and Human Service's declaration that [...] longer be used).Performed By: #### CBC #### [facility] [address] [place] [address] Dr. Grzegorz WangDRUG SCREEN RAPID (URINE)on [id number]A The CentervilleComment on above:Performed By: #### ERUR #### [facility] [address] [place] [address] Dr. Grzegorz WangBARNegativeNormalNEGATIVEThe CentervilleComment on above: Performed By: #### ERUR #### [facility] [address] [place] [address] Dr. Grzegorz WangBUPNegativeNormalNEGATIVEThe CentervilleComment on above: Performed By: #### ERUR #### [facility] [address] [place] [address] Dr. Grzegorz AlexanderZONegativeNormalNEGATIVEDetwiler Memorial HospitalComment on above: Performed By: #### ERUR #### [facility] [address] [place] [address] Dr. Grzegorz WangCOCNegativeNormalNEGATIVEDetwiler Memorial HospitalComment on above: Performed By: #### ERUR #### [facility] [address] [place] [address] Dr. Grzegorz ConnellAdams County Regional Medical CenterComtrinity health [facility] on above: Result Comment: AMP (Amphetamine): 500ng/mL, BAR (Barbituates): 200 ng/mL, BZO (Benzodiazepines): 150 ng/mL, BUP (Buprenorphine): 10 ng/mL, MITZY (Cocaine): 150 ng/mL, mAMP (Methamphetamine): 500 ng/mL, MTD (Methadone): 200 ng/mL, OPI (Opiates): 100 ng/mL, OXY (Oxycodone): 100 ng/mL, PCP (Phencyclidine): 25 ng/mL, PPX (Propoxyphene): 300 ng/mL, THC (Cannabinoids): 50 ng/mL, TCA (Trycyclic Antidepressants): 300 ng/mLPerformed By: #### ERUR #### [facility] [address] [place] [address] Dr. Grzegorz WangDRUG CUT HEADERDRUG CLASS TEST SYSTEM CUT-OFF CONCENTRATIONS ARE FOLLOWS:NormalThe CentervilleComtrinity health [facility] hospital on above:Performed By: #### ERUR #### [facility] [address] [place] [address] Dr. Grzegorz WangmAMPNegativeNormalNEGATIVEDetwiler Memorial HospitalComtrinity health [facility] hospital on above: Performed By: #### ERUR #### [facility] [address] [place] [address] Dr. Grzegorz WangMTDNegativeNormalNEGATIVEDetwiler Memorial HospitalComtrinity health [facility] hospital on above: Performed By: #### ERUR #### [facility] [address] [place] [address] Dr. Grzegorz GutierrezINegativeNormalNEGATIVEDetwiler Memorial HospitalComment on above: Performed By: #### ERUR #### [facility] [address] [address] [address] Grzegorz WangOXYNegativeNormalNEGATIVEDetwiler Memorial HospitalComtrinity health [facility] on above: Performed By: #### ERUR #### [facility] [address] [address] [address] Grzegorz WangPCPNegativeNormalNEGATIVEDetwiler Memorial HospitalComment on above: Performed By: #### ERUR #### [facility] [address] [address] [address] Grzegorz WangPPXNegativeNormalNEGATIVEDetwiler Memorial HospitalComtrinity health [facility] on above: Performed By: #### ERUR #### [facility] [address] [place] [address] Dr. Grzegorz WangTCAPositiveAbnormalNEGATIVEDetwiler Memorial HospitalComment on above: Performed By: #### ERUR #### [facility] [address] [address] [address] Grzegorz WangTHCNegativeNormalNEGATIVEDetwiler Memorial HospitalComtrinity health [facility] hospital on above: Performed By: #### ERUR #### [facility] [address] [address] [address] Grzegorz WangLACTATE/LACTIC ACIDon 33-13-7833Fpfmejk [Moles/Vol]0.7 mmol/L Normal0.4-1.9[facility] on above:Performed By: #### ERUR #### [facility] [address] [place] [address] Dr. Grzegorz WangPROF 14(COMP METB)on 82-33-3284Krcoixd [Mass/Vol]3.1 g/dL Critically low3.4-5.0[facility] on above:Performed By: #### CBC #### [facility] [address] [address] [address] Grzegorz WangAlbumin/Globulin [Mass ratio]1.0 {ratio}NormalThe CentervilleComment on above:Performed By: #### CBC #### [facility] [address] [address] [address] Grzegorz Oleary [Catalytic activity/Vol]81 U/DSkeecn48-252Nka CentervilleComment on above:Performed By: #### CBC #### [facility] [address] [address] [address] Grzegorz CovarrubiasT [Catalytic activity/Vol]21 U/LSbbwtb60-48Jhd CentervilleComment on above:Performed By: #### CBC #### [facility] [address] [address] [address] Grzegorz Ortegaon gap [Moles/Vol]11.9 mmol/LNormalThe [facility] Comment on above:Performed By: #### CBC #### [facility] [address] [place] [address] Dr. Grzegorz WangAST [Catalytic activity/Vol]21 U/VUifggr43-30Dto CentervilleComment on above:Performed By: #### CBC #### [facility] [address] [address] [address] Grzegorz WangBilirubin [Mass/Vol]0.5 mg/dLNormal0.2-1.0[facility] Comment on above:Performed By: #### CBC #### [facility] [address] [place] [address] Dr. Grzegorz WangCalcium [Mass/Vol]8.3 mg/dLCritically low8.5-10.1The CentervilleComment on above:Performed By: #### CBC #### [facility] [address] [place] [address] Dr. Grzegorz WangChloride [Moles/Vol]100 mmol/JMqrbiy99-979Kes [facility] Comment on above:Performed By: #### CBC #### [facility] [address] [address] [address] Grzegorz WangCO2 [Moles/Vol]25.6 mmol/XMgkxpz65.0-32.0The [facility] Comment on above:Performed By: #### CBC #### [facility] [address] [address] [address] Grzegorz WangCreatinine [Mass/Vol]1.39 mg/dLCritically high0.55-1.02The CentervilleComment on above:Performed By: #### CBC #### [facility] [address] [address] [address] Grzegorz ReisGFR-AF KNHPMUHA75 mL/min/1.65n8Axlowbvzah low>=60The CentervilleComment on above:Performed By: #### CBC #### [facility] [address] [address] [address] Grzegorz ReisGFR-NON AF NDDTPKPP77 mL/min/1.57s5Ywgafyulxo low>=60The CentervilleComment on above:Performed By: #### CBC #### [facility] [address] [address] [address] Grzegorz WangGlobulin (S) [Mass/Vol]3.1 g/dLNormalThe CentervilleComment on above:Performed By: #### CBC #### [facility] [address] [address] [address] Grzegorz WangGlucose [Mass/Vol]96 mg/zACoozmj90-630EqxDetwiler Memorial Hospital Comment on above:Performed By: #### CBC #### [facility] [address] [address] [address] Grzegorz WangPotassium [Moles/Vol]3.5 mmol/LNormal3.5-5.1The [facility] on above:Performed By: #### CBC #### [facility] [address] [address] [address] Grzegorz WangProtein [Mass/Vol]6.2 g/dLCritically low6.4-8.2The CentervilleComment on above:Performed By: #### CBC #### [facility] [address] [address] [address] Grzegorz WangSodium [Moles/Vol]134 mmol/LCritically twd581-104Kqb CentervilleComment on above:Performed By: #### CBC #### [facility] [address] [place] [address] Dr. Grzegorz Padron nitrogen [Mass/Vol]33.0 mg/dLCritically high7.0-18.0The CentervilleComment on above:Performed By: #### CBC #### [facility] [address] [place] [address] Dr. Grzegorz Padron nitrogen/Creatinine [Mass ratio]23.7 mg/mgNoParkview Health Montpelier HospitalComment on above:Performed By: #### CBC #### [facility] [address] [place] [address] Dr. Grzegorz WangPROTIMEsagar 32-22-2542VJZ Coag (PPP) [Relative time]{INR}NormalThe CentervilleComtrinity health [facility] hospital on above:Performed By: #### LUCHO DOWA #### [facility] [address] [place] [address] Dr. Grzegorz Hercules GUIDELINESSEE BELOWBlanchard Valley Health System [facility] HospitalComment on above:Result Comment: DESIRED INR: 2.0 - 3.0 CONDITIONS NOT LISTED BELOW 2.5 - 3.5 FOR PROSTHETIC HEART VALVE REPLACEMENT 2.5 - 3.5 RECURRENT THROMBOSIS Performed By: #### PALOMA LIPA #### [facility] [address] [place] [address] Dr. Grzegorz WangPT Coag (PPP) [Time]10.0 sNormal9.0-11.6The [facility] Comment on above:Performed By: #### PALOMA LIPA #### [facility] [address] [place] [address] Dr. Grzegorz Aguilar 41-87-5638iGUK Coag (Bld) [Time]32.1 pYgjavc80.3-36.2The CentervilleComment on above:Performed By: #### PALOMA LIPA #### [facility] [address] [place] [address] Dr. Grzegorz WangXR CHEST 1 Von [id number] CHEST 1 VEXAM: Yue x-ray HISTORY: . Altered mental status . COMPARISON: 07/29/2021 TECHNIQUE: AP portable upright view of the chest FINDINGS: Heart and vascularity are unremarkable. Lungs are free of focal infiltrates. Loop recorder overlies the left chest. Atherosclerotic changes of the thoracic aorta are noted. IMPRESSION: No acute heart or lung disease identified. Electronically authenticated by: NATACHA JAUREGUI Date: 2021-09-02 19:18[facility] HospitalXR hand RT min 3V*on 10-15-0412VJ hand RT min 3V*[facility] Be Spotted Other XR hand RT min 3V*[facility] Be Spotted Other XR hand RT min 3V*[address] [place] [address] Be Spotted Other XR hand RT min 3V*[place] [address]Aojrv [employer] Other XR hand RT min 3V*XRay [facility] Be Spotted Other XR hand RT min 3V*[facility] [employer] Other XR hand RT min 3V*Patient: Ozzie Gifford MR#: [id number] [employer] Other XR hand RT min 3V*[id number] [employer] Other XR hand RT min 3V*: 1950 Acct:[id number] [employer] Other XR hand RT min 3V*Age/Sex: 71 / F ADM Date: 08/02/21 [facility] Be Spotted Other XR hand RT min 3V*Loc: [facility] Room: Type: [facility] Be Spotted Other XR hand RT min 3V*Attending Dr: Susie Arrington MD [facility] Be Spotted Other XR hand RT min 3V*Copies to: Susie Arrington MDBlanding [employer] Other XR hand RT min 3V*Ordering Provider: Susie Arrington MDBlanding [employer] Other XR hand RT min 3V*Date of Service: 08/02/21[place] [employer] Other XR hand RT min 3V* XR/XR hand RT min 3V*: Closed nondisplaced fracture of proximal phalanxSaint [facility]rini Hospital Be Spotted Other XR hand RT min 3V*of right [facility] Be Spotted Other XR hand RT min 3V*4 viewsRIGHT hand plain filmSaint Cabrini Hospital Be Spotted Other XR hand RT min 3V*COMPARISON:07/12/21[place] [employer] Other XR hand RT min 3V*HISTORY:Status post RIGHT long finger proximal phalanx fractureSaint Cabrini Hospital Be Spotted Other XR hand RT min 3V*No bony alignment stable. No interval healing. Extensive degeneration.[place] [employer] Other XR hand RT min 3V* XR/XR hand RT min 3V*[place] [employer] Other XR hand RT min 3V*IMPRESSION:Stable findingsSaint Cabrini Hospital Be Spotted Other XR hand RT min 3V*Impression dictated by: Husam Martinez M.D.08/02/2021 12:13 [facility] [employer] Other XR hand RT min 3V*Dictation Location: [id number] [employer] Other XR hand RT min 3V*Transcribed By: SHYANN 08/02/21 [facility]3 [place] [employer] Other XR hand RT min 3V*Dictated By: Husam Martinez DO 08/02/[address] [place] [address] [employer] Other XR hand RT min 3V*Signed By:Triductor Other XR hand RT min 3V*08/02/21 [facility]3[place] [employer] Other BNPon 05-33-1532Jfpikkzouup peptide B (Bld) [Mass/Vol] 192.0 pg/mLNormal<=900.0The CentervilleComment on above:Performed By: #### ERUR #### [facility] [address] [place] [address] Dr. Grzegorz Navarrete BAMBI ADMITon 81-12-0397IQ [Catalytic activity/Vol]82 U/L Wxqdnr99-622Ecj CentervilleComment on above:Performed By: #### ERUR #### [facility] [address] [place] [address] Dr. Grzegorz Waters.MB [Mass/Vol]2.40 ng/mLNormal<=3.60The [facility] Comment on above:Performed By: #### ERUR #### [facility] [address] [place] [address] Dr. Grzegorz MehtaTROP4.7 pg/mLNormal4.0-51.3The [facility]ervilleComment on above:Result Comment: CUT-OFF POINTS HAVE BEEN ESTABLISHED BASED ON THE FOURTH UNIVERSAL DEFINITIONS OF MYOCARDIAL INFARCTION. THE UPPER REFERENCE LIMIT (URL) OF TROPONIN, DEFINED THE 99TH PERCENTILE OF cTnI DISTRIBUTION IN A REFERENCE POPULATION, HAS BEEN CONFIRMED THE DECISION THRESHOLD FOR CT DIAGNOSIS.Performed By: #### ERUR #### [facility] [address] [place] [address] Dr. Grzegorz QuinnO70 ng/mLNormal9-82The CentervilleComment on above: Performed By: #### ERUR #### [facility] [address] [place] [address] Dr. Grzegorz Hurley AUTO DIFFon [id number] #0.0 103/ulNormal0.0-0.1The CentervilleComment on above:Performed By: #### ERUR #### [facility] [address] [place] [address] Dr. Grzegorz WangBasophils/100 WBC (Bld)0.7 %Normal0.2-2.0The [facility] Comment on above:Performed By: #### ERUR #### [facility] [address] [place] [address] Dr. Grzegorz Tellez #0.2 103/ulNormal0.0-0.7The [facility]ervilleComment on above: Performed By: #### ERUR #### [facility] [address] [place] [address] Dr. Grzegorz Reisosinophils/100 WBC (Bld)4.1 %Normal0.9-7.0The [facility] Comment on above:Performed By: #### ERUR #### [facility] [address] [place] [address] Dr. Grzegorz Reisrythrocyte distribution width (RBC) [Ratio]15.7 %Critically high 11.0-15.0The [facility]ervilleComment on above:Performed By: #### ERUR #### [facility] [address] [place] [address] Dr. Grzegorz WangHematocrit (Bld) [Volume fraction]32.6 %Critically low36.0-48.0 The [facility]ervilleComment on above:Performed By: #### ERUR #### [facility] [address] [place] [address] Dr. Grzegorz WangHemoglobin (Bld) [Mass/Vol]9.9 g/dLCritically low12.0-16.0The CentervilleComment on above:Performed By: #### ERUR #### [facility] [address] [place] [address] Dr. Grzegorz Barbosa #0.02 10e3/ulNormal0.00-0.03The [facility]ervilleComment on above:Performed By: #### ERUR #### [facility] [address] [place] [address] Dr. Grzegorz Barbosa %0.3 %Normal0.0-0.5The [facility]ervilleComment on above: Performed By: #### ERUR #### [facility] [address] [place] [address] Dr. Grzegorz Soriano #1.7 103/ulNormal1.2-3.8The [facility]ervilleComment on above:Performed By: #### ERUR #### [facility] [address] [place] [address] Dr. Grzegorz Finleymphocytes/100 WBC (Bld)28.0 %Qanlpp19.5-60.0The [facility]ervilleComment on above:Performed By: #### ERUR #### [facility] [address] [place] [address] Dr. Grzegorz Bowers DIFF REQNONormalThe [facility]ervilleComment on above: Performed By: #### ERUR #### [facility] [address] [place] [address] Dr. Grzegorz Finley (RBC) [Entitic mass]23.9 pgCritically low26.7-34.0The [facility]ervilleComment on above:Performed By: #### ERUR #### [facility] [address] [place] [address] Dr. Grzegorz Finley (RBC) [Mass/Vol]30.4 g/nPZdqjfx00.9-35.2The CentervilleComment on above:Performed By: #### ERUR #### [facility] [address] [place] [address] Dr. Grzegorz Finley (RBC) [Entitic vol]78.7 fLCritically low81.0-99.0The [facility]ervilleComment on above:Performed By: #### ERUR #### [facility] [address] [place] [address] Dr. Grzegorz Wild #0.6 103/ulNormal0.3-0.8The CentervilleComment on above:Performed By: #### ERUR #### [facility] [address] [place] [address] Dr. Grzegorz Lemusocytes/100 WBC (Bld)10.4 %Normal1.7-12.0The [facility] Comment on above:Performed By: #### ERUR #### [facility] [address] [place] [address] Dr. Grzegorz OmerUT #3.3 103/ulNormal1.4-6.5The CentervilleComment on above:Performed By: #### ERUR #### [facility] [address] [place] [address] Dr. Grzegorz Omerutrophils/100 WBC (Bld)56.5 %Ipbbka41.0-75.0The CentervilleComment on above:Performed By: #### ERUR #### [facility] [address] [place] [address] Dr. Grzegorz WangPlatelet mean volume (Bld) [Entitic vol]10.2 fLNormal9.5-13.5The CentervilleComment on above:Performed By: #### ERUR #### [facility] [address] [place] [address] Dr. Grzegorz WangPLT216 103/myNmsaxm559-760Ckw [facility]ervilleComment on above: Performed By: #### ERUR #### [facility] [address] [place] [address] Dr. Grzegorz WangRBC4.14 106/ulCritically low4.20-5.40[facility] on above:Performed By: #### ERUR #### [facility] [address] [place] [address] Dr. Grzegorz WangWBC5.9 103/ulNormal4.0-11.0The CentervilleComment on above: Performed By: #### ERUR #### [facility] [address] [place] [address] Dr. Grzegorz WangCT HEAD WO CONon 70-47-1233VT HEAD WO CONEXAMINATION: CT HEAD WO CON [...] Electronically authenticated by: DORIAN GREENE Date: 2021-07-29 15:01[facility] URINE PROFILEon 73-78-2005Hkhygxbwb Ql (U)NegativeNormal NEGATIVEDetwiler Memorial HospitalComment on above:Performed By: #### ERUR #### [facility] [address] [place] [address] Dr. Grzegorz Lovearity (U)CLEARNormalCLEARDetwiler Memorial HospitalComment on above: Performed By: #### ERUR #### [facility] [address] [place] [address] Dr. Grzegorz Delvalle (U)LT. YELLOWNormalYELLOWDetwiler Memorial HospitalComment on above:Performed By: #### ERUR #### [facility] [address] [place] [address] Dr. Grzegorz Dawson micrscopic examination will be performed if indicated. NormalThe [facility]ervilleComment on above:Performed By: #### ERUR #### [facility] [address] [place] [address] Dr. Grzegorz WangGlucose Ql (U)NegativeNormalNEGATIVEDetwiler Memorial HospitalComment on above:Performed By: #### ERUR #### [facility] [address] [place] [address] Dr. Grzegorz WangHemoglobin Ql (U)NegativeNormalNEGATIVEMetrohealth Main Campus Medical Center on above:Performed By: #### ERUR #### [facility] [address] [place] [address] Dr. Grzegorz WangKetones Ql (U)NegativeNormalNEGATIVEDetwiler Memorial HospitalComment on above:Performed By: #### ERUR #### [facility] [address] [place] [address] Dr. Grzegorz WangLEUKOCYTESNegativeNormalNEGATIVEDetwiler Memorial HospitalComment on above:Performed By: #### ERUR #### [facility] [address] [place] [address] Dr. Grzegorz Paez Ql (U)NegativeNormalNEGATIVEThe [facility] HospitalComment on above:Performed By: #### ERUR #### [facility] [address] [place] [address] Dr. Grzegorz WangpH (U)5.5 [pH]Normal5-9The CentervilleComment on above: Performed By: #### ERUR #### [facility] [address] [place] [address] Dr. Grzegorz WangSPEC GRAVITY1.682Drhhmo4.005-<=1.025The CentervilleComment on above:Performed By: #### ERUR #### [facility] [address] [place] [address] Dr. Grzegorz Jones PROTEINNegativeNormalNEGATIVE/ TRACEThe [facility] Comment on above:Performed By: #### ERUR #### [facility] [address] [place] [address] Dr. Grzegorz Durham MICRO INDNOT INDICATEDNormalThe CentervilleComment on above:Performed By: #### ERUR #### [facility] [address] [place] [address] Dr. Grzegorz Irwin Qn (U)0.2 {Lidya'U}/dLNormal0.2 - 1.0The CentervilleComment on above:Performed By: #### ERUR #### [facility] [address] [place] [address] Dr. Grzegorz Canela 14(COMP METB)on 25-98-8129Rblwenr [Mass/Vol]3.1 g/dL Critically low3.4-5.0The CentervilleComment on above:Performed By: #### ERUR #### [facility] [address] [place] [address] Dr. Grzegorz WangAlbumin/Globulin [Mass ratio]1.0 {ratio}NormalThe CentervilleComment on above:Performed By: #### ERUR #### [facility] [address] [place] [address] Dr. Grzegorz Oleary [Catalytic activity/Vol]99 U/FTwkeyu87-165Kaq CentervilleComment on above:Performed By: #### ERUR #### [facility] [address] [place] [address] Dr. Grzegorz CovarrubiasT [Catalytic activity/Vol]18 U/AFdjxrq94-77Cvi CentervilleComment on above:Performed By: #### ERUR #### [facility] [address] [place] [address] Dr. Grzegorz Ortegaon gap [Moles/Vol]10.5 mmol/LNormalDetwiler Memorial Hospital Comment on above:Performed By: #### ERUR #### [facility] [address] [place] [address] Dr. Grzegorz WangAST [Catalytic activity/Vol]14 U/LCritically tcq64-60Qba CentervilleComment on above:Performed By: #### ERUR #### [facility] [address] [place] [address] Dr. Grzegorz WangBilirubin [Mass/Vol]0.3 mg/dLNormal0.2-1.0[facility] Comment on above:Performed By: #### ERUR #### [facility] [address] [place] [address] Dr. Grzegorz WangCalcium [Mass/Vol]8.5 mg/dLNormal8.5-10.1[facility] Comment on above:Performed By: #### ERUR #### [facility] [address] [place] [address] Dr. Grzegorz WangChloride [Moles/Vol]108 mmol/LCritically kwbh95-765Fxx CentervilleComment on above:Performed By: #### ERUR #### [facility] [address] [place] [address] Dr. Grzegorz WangCO2 [Moles/Vol]26.0 mmol/GCwpooa59.0-32.0The [facility] Comment on above:Performed By: #### ERUR #### [facility] [address] [place] [address] Dr. Grzegorz WangCreatinine [Mass/Vol]1.07 mg/dLCritically high0.55-1.02Det[facility]iler Memorial HospitalComment on above:Performed By: #### ERUR #### [facility] [address] [place] [address] Dr. Grzegorz ReisGFR-AF LAO>60Normal>=60The CentervilleComment on above:Performed By: #### ERUR #### [facility] [address] [address] [address] Grzegorz ReisGFR-NON AF GGVNPQHR86 mL/min/1.42s3Slhnolxzdb low>=60The CentervilleComment on above:Performed By: #### ERUR #### [facility] [address] [place] [address] Dr. Grzegorz WangGlobulin (S) [Mass/Vol]3.0 g/dLNormalThe CentervilleComment on above:Performed By: #### ERUR #### [facility] [address] [place] [address] Dr. Grzegorz WangGlucose [Mass/Vol]87 mg/cFTjhnqt76-211QtsDetwiler Memorial Hospital Comment on above:Performed By: #### ERUR #### [facility] [address] [place] [address] Dr. Grzegorz WangPotassium [Moles/Vol]3.5 mmol/LNormal3.5-5.1[facility] Comment on above:Performed By: #### ERUR #### [facility] [address] [place] [address] Dr. Grzegorz WangProtein [Mass/Vol]6.1 g/dLCritically low6.4-8.2Detwiler Memorial HospitalComment on above:Performed By: #### ERUR #### [facility] [address] [place] [address] Dr. Grzegorz WangSodium [Moles/Vol]141 mmol/GTrzqno816-034HzoDetwiler Memorial Hospital Comment on above:Performed By: #### ERUR #### [facility] [address] [place] [address] Dr. Yilan ChangUrea nitrogen [Mass/Vol]22.0 mg/dLCritically high7.0-18.0Detwiler Memorial HospitalComment on above:Performed By: #### ERUR #### [facility] [address] [place] [address] Dr. Grzegorz Padron nitrogen/Creatinine [Mass ratio]20.6 mg/mgNoParkview Health Montpelier HospitalComment on above:Performed By: #### ERUR #### [facility] [address] [place] [address] Dr. Grzegorz WangPROTIMEsagar 75-93-2740CHQ Coag (PPP) [Relative time]0.99 {INR} NormalThe CentervilleComment on above:Performed By: #### PTT, PT #### [facility] [address] [place] [address] Dr. Grzegorz Hercules GUIDELINESSEE BELOWBlanchard Valley Health System [facility] HospitalComment on above:Result Comment: DESIRED INR: 2.0 - 3.0 CONDITIONS NOT LISTED BELOW 2.5 - 3.5 FOR PROSTHETIC HEART VALVE REPLACEMENT 2.5 - 3.5 RECURRENT THROMBOSIS Performed By: #### PTT, PT #### [facility] [address] [place] [address] Dr. Grzegorz WangPT Coag (PPP) [Time]10.7 sNormal9.0-11.6[facility] Comment on above:Performed By: #### PTT, PT #### [facility] [address] [place] [address] Dr. Grzegroz Aguilar 89-30-4926kJML Coag (Bld) [Time]31.0 wUcsalz81.3-36.2[facility] HospitalComment on above:Performed By: #### PTT, PT #### [facility] [address] [place] [address] Dr. Grzegorz WangXR CHEST 1 Von [id number] CHEST 1 VEXAM: XR CHEST 1 V [...] Electronically authenticated by: NATACHA TO Date: 2021-07-29 14:54[facility] HospitalXR hand RT min 3V*on 39-70-7125LZ hand RT min 3V*[facility] Be Spotted Other XR hand RT min 3V*[facility] [employer] Other XR hand RT min 3V*[address] [place] [address] Be Spotted Other XR hand RT min 3V*[place] [address]Xgujj [employer] Other XR hand RT min 3V*[facility] [employer] Other XR hand RT min 3V*[facility] [employer] Other XR hand RT min 3V*Patient: Ozzie Gifford MR#: [id number] [employer] Other XR hand RT min 3V*47034Jgsvz [employer] Other XR hand RT min 3V*: 1950 Acct:[id number] [employer] Other XR hand RT min 3V*Age/Sex: 71 / F ADM Date: 07/12/21 [place] [employer] Other XR hand RT min 3V*Loc: [facility] Room: Type: [facility] Be Spotted Other XR hand RT min 3V*Attending Dr: Susie Arrington MD [facility] Be Spotted Other XR hand RT min 3V*Ordering Provider: Susie Arrington MDBlanding [employer] Other XR hand RT min 3V*Date of Service: 07/12/21[place] [employer] Other XR hand RT min 3V* XR/XR hand RT min 3V*: Right hand painBlanding [employer] Other XR hand RT min 3V*Copies to: Susie Arrington MDBlanding [employer] Other XR hand RT min 3V*XR hand RT min 3V* 07/12/2021 10:43 AM [place] [employer] Other XR hand RT min 3V*SIGNS AND SYMPTOMS: Fall, pain in right hand greatest in the right thumb with swellingBlanding [employer] Other XR hand RT min 3V*PROTOCOL: Frontal, lateral, and oblique radiographs of the right handBlanding [employer] Other XR hand RT min 3V*COMPARISON: NoneBlanding [employer] Other XR hand RT min 3V*FINDINGS:Triductor Other XR hand RT min 3V*There is mild narrowing of the distal interphalangeal joints. There is a mild flexion deformity ofBlanding [employer] Other XR hand RT min 3V*the fifth proximal interphalangeal joint. There is mild narrowing of the first metacarpophalangealBlanding [employer] Other XR hand RT min 3V*junction with mild to moderate degenerative change at the first carpometacarpal joint. There is noNsouthpointe hospital CAN [employer] Other XR hand RT min 3V*evidence of acute displaced fracture. No evidence of dislocation.[place] [employer] Other XR hand RT min 3V* XR/XR hand RT min 3V*[place] [employer] Other XR hand RT min 3V*IMPRESSION:Triductor Other XR hand RT min 3V*No evidence of fracture.Triductor Other XR hand RT min 3V*Degenerative changes are noted, greatest in the thumb.Triductor Other XR hand RT min 3V*There is a mild flexion deformity of the fifth proximal interphalangeal joint.Triductor Other XR hand RT min 3V*Impression dictated by: Bambi Sung M.D.07/12/2021 12:29 PMNsouthpointe hospital [employer] Other XR hand RT min 3V*Dictation Location: OPGAC-GA-12Pspda [employer] Other XR hand RT min 3V*Transcribed By: SHYANN 07/12/21 [facility] Triductor Other XR hand RT min 3V*Dictated By: Bambi Sung II, MD 07/12/[address] [place] [address] [employer] Other XR hand RT min 3V*Signed By:Triductor Other xr hand RT min 3V*07/12/[address] [place] [address] [employer] Other cbc AUTO DIFFon 02-09-9953NZEX #0.1 103/ulNormal 0.0-0.1The CentervilleComment on above:Performed By: #### CBC #### [facility] [address] [address] [address] Grzegorz Griffinsophils/100 WBC (Bld)0.8 %Normal0.2-2.0[facility] Comment on above:Performed By: #### CBC #### [facility] [address] [address] [address] Grzegorz Tellez #0.3 103/ulNormal0.0-0.7The CentervilleComment on above: Performed By: #### CBC #### [facility] [address] [address] [address] Grzegorz Reisosinophils/100 WBC (Bld)3.8 %Normal0.9-7.0[facility] Comment on above:Performed By: #### CBC #### [facility] [address] [place] [address] Dr. Grzegorz Reisrythrocyte distribution width (RBC) [Ratio]14.1 %Kutyoa82.0-15.0 [facility] HospitalComment on above:Performed By: #### CBC #### [facility] [address] [place] [address] Dr. Grzegorz WangHematocrit (Bld) [Volume fraction]34.4 %Critically low36.0-48.0 The [facility]ervilleComment on above:Performed By: #### CBC #### [facility] [address] [place] [address] Dr. Grzegorz WangHemoglobin (Bld) [Mass/Vol]10.4 g/dLCritically low12.0-16.0The CentervilleComment on above:Performed By: #### CBC #### [facility] [address] [place] [address] Dr. Grzegorz Barbosa #0.04 10e3/ulCritically high0.00-0.03The [facility] Comment on above:Performed By: #### CBC #### [facility] [address] [place] [address] Dr. Grzegorz Barbosa %0.5 %Normal0.0-0.5ThLima Memorial HospitalComment on above: Performed By: #### CBC #### [facility] [address] [place] [address] Dr. Gzregorz Soriano #1.7 103/ulNormal1.2-3.8The [facility]ervilleComment on above:Performed By: #### CBC #### [facility] [address] [place] [address] Dr. Grzegorz Wilkinshocytes/100 WBC (Bld)22.1 %Zsjroe31.5-60.0The CentervilleComment on above:Performed By: #### CBC #### [facility] [address] [place] [address] Dr. Grzegorz Bowers DIFF REQNONormalThe CentervilleComment on above: Performed By: #### CBC #### [facility] [address] [place] [address] Dr. Grzegorz Finley (RBC) [Entitic mass]25.6 pgCritically low26.7-34.0The CentervilleComment on above:Performed By: #### CBC #### [facility] [address] [place] [address] Dr. Grzegorz Finley (RBC) [Mass/Vol]30.2 g/eIIckman66.9-35.2The [facility]ervilleComment on above:Performed By: #### CBC #### [facility] [address] [place] [address] Dr. Grzegorz Ricks (RBC) [Entitic vol]84.5 wTFghdes63.0-99.0The CentervilleComment on above:Performed By: #### CBC #### [facility] [address] [place] [address] Dr. Grzegorz Wild #0.8 103/ulNormal0.3-0.8The CentervilleComment on above:Performed By: #### CBC #### [facility] [address] [place] [address] Dr. Grzegorz Lemusocytes/100 WBC (Bld)11.1 %Normal1.7-12.0[facility] Comment on above:Performed By: #### CBC #### [facility] [address] [place] [address] Dr. Grzegorz Parada #4.7 103/ulNormal1.4-6.5The CentervilleComment on above:Performed By: #### CBC #### [facility] [address] [place] [address] Dr. Grzegorz Omerutrophils/100 WBC (Bld)61.7 %Oipodh31.0-75.0The CentervilleComment on above:Performed By: #### CBC #### [facility] [address] [place] [address] Dr. Grzegorz WangPlatelet mean volume (Bld) [Entitic vol]10.6 fLNormal9.5-13.5The CentervilleComment on above:Performed By: #### CBC #### [facility] [address] [place] [address] Dr. Grzegorz WangPLT281 103/zbJkxkrl061-188Ydo CentervilleComment on above: Performed By: #### CBC #### [facility] [address] [address] [address] Grzegorz WangRBC4.07 106/ulCritically low4.20-5.40The CentervilleComment on above:Performed By: #### CBC #### [facility] [address] [place] [address] Dr. Grzegorz WangWBC7.6 103/ulNormal4.0-11.0The CentervilleComment on above: Performed By: #### CBC #### [facility] [address] [place] [address] Dr. Grzegorz WangCT CHEST WO CONon [id number] CHEST WO CONEXAMINATION: CT CHEST WO CON [...] Electronically authenticated by: LUCI MARADIAGA Date: 2021-05-08 18:59NoParkview Health Montpelier HospitalCT HEAD WO CONon [id number] HEAD WO CONEXAMINATION: CT HEAD WO CON, [...] Electronically authenticated by: MITZI LOWRY Date: 2021-05-08 17:27NoParkview Health Montpelier HospitalCT NECK ST WO CONon [id number] NECK ST WO CONEXAMINATION: CT NECK ST [...] The parotid glands, parapharyngeal spaces and left career placement services counselor spaces appear normal. A tiny amount of air in the venous system in the right parapharyngeal space and in the venous system of the right career placement services counselor space. A tiny amount air in probably [...] space and venous system in the right career placement services counselor space, likely iatrogenic. No abnormal fluid collection. Prior right carotid endarterectomy. 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 Electronically authenticated by: BASIM CABAN Date: 2021-05-08 19:23[facility] HospitalPROF CHEM 8 (BAS METB)on 70-59-7350Uggft gap [Moles/Vol]12.3 mmol/LNormalThe [facility]ervilleComment on above:Performed By: #### PALOMA LIPA #### [facility] [address] [address] [address] Grzegorz WangCalcium [Mass/Vol]8.4 mg/dLCritically low8.5-10.1The CentervilleComment on above:Performed By: #### PALOMA LIPA #### [facility] [address] [address] [address] Grzegorz WangChloride [Moles/Vol]108 mmol/LCritically uqnl25-570Txv [facility] on above:Performed By: #### PALOMA LIPA #### [facility] [address] [address] [address] Grzegorz WangCO2 [Moles/Vol]25.9 mmol/MJsmswm04.0-30.0[facility] Comment on above:Performed By: #### PALOMA, LIPA #### [facility] [address] [address] [address] Grzegorz WangCreatinine [Mass/Vol]1.18 mg/dLCritically high0.52-1.04The [facility]ervilleComment on above:Performed By: #### PALOMA, LIPA #### [facility] [address] [place] [address] Dr. Grzegorz ReisGFR-AF XDQSEFRH11 mL/min/1.58u4Ozeufydyor low>=60The CentervilleComment on above:Performed By: #### PALOMA, LIPA #### [facility] [address] [place] [address] Dr. Grzegorz Gerwal-NON AF LBUGJBYM68 mL/min/1.85p2Lsmuqlbpqk low>=60The [facility]ervilleComment on above:Performed By: #### PALOMA, LIPA #### [facility] [address] [place] [address] Dr. Grzegorz WangGlucose [Mass/Vol]84 mg/wRPhkhod66-554BlbDetwiler Memorial Hospital Comment on above:Performed By: #### PALOMA, LIPA #### [facility] [address] [place] [address] Dr. Grzegorz WangPotassium [Moles/Vol]3.2 mmol/LCritically low3.4-5.0[facility]iler Memorial HospitalComment on above:Performed By: #### PALOMA, LIPA #### [facility] [address] [place] [address] Dr. Grzegorz WangSodium [Moles/Vol]143 mmol/FVwoyld260-711YxkDetwiler Memorial Hospital Comment on above:Performed By: #### PALOMA, LIPA #### [facility] [address] [place] [address] Dr. Grzegorz WangUrea nitrogen [Mass/Vol]35.0 mg/dLCritically high7.0-18.0The CentervilleComment on above:Performed By: #### PALOMA, LIPA #### [facility] [address] [place] [address] Dr. Grzeogrz WangUrea nitrogen/Creatinine [Mass ratio]29.7 mg/mgBlanchard Valley Health System [facility] Valley HospitalComment on above:Performed By: #### PHIL DOW #### [facility] [address] [address] [address] Grzegorz WangXR PELVIS 1_2 VIEWSon [id number] PELVIS 1_2 VIEWSEXAM: XR PELVIS 1_2 VIEWS, XR SACRUM_COCCYX HISTORY: History of fall COMPARISON: None. TECHNIQUE: Single supine view of the pelvis FINDINGS: No acute fracture is seen. Joint alignment is normal. Joint spaces are preserved. The soft tissues appear unremarkable. IMPRESSION: No radiographic evidence for acute displaced fracture or malalignment. Electronically authenticated by: LUCI MARADIAGA Date: 2021-05-08 17:24[facility] HospitalXR wrist LT min 3V*on 65-00-3893CI wrist LT min 3V*[facility] Be Spotted Other XR wrist LT min 3V*[facility] [employer] Other XR wrist LT min 3V*[address] [place] [address] [employer] Other XR wrist LT min 3V*[place], [place] [address]Ympsk [employer] Other XR wrist LT min 3V*[facility] [employer] Other XR wrist LT min 3V*[facility] [employer] Other XR wrist LT min 3V*Patient: Ozzie Gifford MR#: [id number] [employer] Other XR wrist LT min 3V*[id number] [employer] Other XR wrist LT min 3V*: 1950 Acct:[id number] [place] [employer] Other XR wrist LT min 3V*Age/Sex: 70 / F ADM Date: 05/03/21 [place] [employer] Other XR wrist LT min 3V*Loc: [facility] Room: [facility]: [facility]ENTERtu.nr Other XR wrist LT min 3V*Attending Dr: Susie Arrington MD Triductor Other XR wrist LT min 3V*Ordering Provider: Susie Arrington MDNeuralieve Other XR wrist LT min 3V*Date of Service: 05/03/21Triductor Other XR wrist LT min 3V* XR/XR wrist LT min 3V*: Other specified postprocedural [employer] [facility] ClinicNeuralieve Other XR wrist LT min 3V*Copies to: Susie Arrington MD Triductor Other XR wrist LT min 3V*4 viewsLEFT wrist plain filmBlanding [employer] Other XR wrist LT min 3V*COMPARISON:03/31/21Ne[employer] Other XR wrist LT min 3V*HISTORY:Status post ORIF distal radius fractureBlanding [employer] Other XR wrist LT min 3V*No hardware failure. Adequate bony alignment. Healing distal radius fracture noted.Triductor Other XR wrist LT min 3V* XR/XR wrist LT min 3V*Triductor Other XR wrist LT min 3V*IMPRESSION:Healing distal radius fracture. No hardware failure.Triductor Other XR wrist LT min 3V*Impression dictated by: Husam Martinez M.D.05/03/2021 2:12 [facility]ENTERtu.nr Other XR wrist LT min 3V*Dictation Location: [address] [address] Triductor Other XR wrist LT min 3V*Transcribed By: SHYANN 05/03/21 1412 Triductor Other XR wrist LT min 3V*Dictated By: Husam Martinez DO 05/03/21 [facility] SystemNeuralieve Other XR wrist LT min 3V*Signed By:Triductor Other XR wrist LT min 3V*05/03/21 [facility] HospitalNeuralieve Other XR FOREARM LT 2 VIEWSon 70-83-5355VM FOREARM LT 2 VIEWSIMAGES REVIEWED: XR WRIST [...] Electronically authenticated by: MARYSE LANGFORD Date: 2021-03-30 20:17[facility] HospitalCardiovascular Lab Reporton [id number] Lab Report [facility] MR #: [id number] Department of Physician: Donna Henderson M.D. Division of Service Date: 03/03/2020 Cardiology Birthdate: 1950 Adult Cardiovascular Room #: [place] [address] Cardiovascular Laboratory Report FINAL IMPRESSION: 1. Moderate [...] femoral vein and artery was obtained. A 6-Citizen Of [place] 11 cm sheath was inserted in each. Difficulty exchanging the micropuncture kit for a 6-Citizen [place] sheath encountered for the arterial access site; [...] physiological assessment of the coronary lesions. A 6-Citizen [place] XB 3.5 guide catheter was advanced over J-wire and coaxially engaged into the left main ostium. The [employer]. pressure wire was advanced through the catheter with pressures normalized just off the exiting the catheter. The wire was used to traverse the suspected stenosis. An instantaneous wave-free ratio was performed. The wire was removed. Final angiography showed SARAH-3 flow with no dissection, thrombus, or distal wire trauma. The guide catheter was removed. A 5-Citizen [place] JR4 guide catheter was advanced in and coaxially engaged into the right coronary ostium. The [employer]. pressure wire was advanced through the catheter [...] A/Jacklyn Doty M.D. Date Trans: 03/03/2020 12:28 P/laviniao DN_JN:[id number] cc: Ruben Salvador M.D. Heart Failure/ Transplant Mailstop [address] [facility] [address], PRODUCTION TECH [address] [facility] Pavilionaretha Mailstop [address] [facility] [address]IlsjczGmkBet[facility] Vital Signs Date TimeVital SignValuePerforming HvxcyvbbyItmhlrlt34-61-3947 11:28-0400Body .94 Marie Collado RAIL SPECIALIST-C Work Phone: [facility]10-23-2025 11:28-0400 Body mass index (BMI) [Ratio]28.7 kg/m2Lisa Collado RAIL SPECIALIST-C Work Phone: [facility]10-23-2025 11:28-0400 Body amqhpj23.94 kgLisa Heaven RAIL SPECIALIST-C Work Phone: [facility]10-23-2025 11:28-0400 Diastolic blood stliqdoh24 mm[Hg]Cindy Collado RAIL SPECIALIST-C Work Phone: [phone]10-23-2025 11:28-0400 Heart kaos704 /minLisa Aichholz RAIL SPECIALIST-C Work Phone: [phone])[address]10-23-2025 11:28-0400 Respiratory rate18 /minLisa Aichholz RAIL SPECIALIST-C Work Phone: [phone])[address]10-23-2025 11:28-0400 SaO2% (BldA) [Mass fraction]96 %Cindy Aichholz RAIL SPECIALIST-C Work Phone: [phone])[address]10-23-2025 11:28-0400 Systolic blood bohpbmka318 mm[Hg]Cindy Aichholz RAIL SPECIALIST-C Work Phone: 1([phone])[address]10-16-2025 09:08-0400 Body hikcnk862.94 cmLisa Aichholz RAIL SPECIALIST-C Work Phone: [phone])[address] [place], [place] 88[address]210-16-2025 09:08-0400 Body mass index (BMI) [Ratio]29 kg/m2Lisa Aichholz RAIL SPECIALIST-C Work Phone: [phone])[address] [place], [place] 88[address]210-16-2025 09:08-0400 Body examoznvwxh52.3 [degF]Cindy Aichholz RAIL SPECIALIST-C Work Phone: 1(570)[address]10-16-2025 09:08-0400 Body gxteul07.56 kgLisa Aichholz RAIL SPECIALIST-C Work Phone: [phone])[address]10-16-2025 09:08-0400 Diastolic blood muihpcuj60 mm[Hg]Cindy Aichholz RAIL SPECIALIST-C Work Phone: 1(449)[address]10-16-2025 09:08-0400 Heart rate80 /minLisa Aichholz RAIL SPECIALIST-C Work Phone: 1(909)[address]10-16-2025 09:08-0400 Respiratory rate16 /minLisa Aichholz RAIL SPECIALIST-C Work Phone: [facility]10-16-2025 09:08-0400 SaO2% (BldA) [Mass fraction]97 %Cindy Aichholz RAIL SPECIALIST-C Work Phone: 1(007)610-[facility]10-16-2025 09:08-0400 Systolic blood nhenafxu319 mm[Hg]Cindy Aichholz RAIL SPECIALIST-C Work Phone: 1(243)149-[address] [place], [place] 5484307-03-2025 14:50-0400 Body ovkvtr605.94 cmLisa Aichholz Work Phone: [phone]07-03-2025 14:50-0400 Body mass index (BMI) [Ratio]30 kg/m2Lisa Aichholz Work Phone: [phone]07-03-2025 14:50-0400 Body umclzp54.12 kgLisa Aichholz Work Phone: [phone])[address]07-03-2025 14:50-0400 Diastolic blood silvxrhk02 mm[Hg]Cindy Aichholz Work Phone: 1(206)599-[address] [place], [place] 5484307-03-2025 14:50-0400 Heart rate70 /minLisa Aichholz Work Phone: 1([phone] [place], [place] 5484307-03-2025 14:50-0400 SaO2% (BldA) [Mass fraction]94 %Cindy Aichholz Work Phone: 1(372)724-[address] [place], [place] 5484307-03-2025 14:50-0400 Systolic blood qvchfyeb436 mm[Hg]Cindy Aichholz Work Phone: 1([phone] [place], [place] 5484307-01-2025 09:10-0400 Body mass index (BMI) [Ratio]30 kg/m2Lisa Aichholz RAIL SPECIALIST Work Phone: [facility] CenterMrmdvygzlc88-61-3431 09:10-0400Body temperature 97.81 [degF]Cindy Aichholz RAIL SPECIALIST Work Phone: [facility] CenterEkwxewfrsx39-24-0373 09:10-0400Body .03 kgCindy Collado RAIL SPECIALIST Work Phone: [facility] CenterDooghavbli50-89-9322 09:10-0400Diastolic blood hnqcuxxr37 mm[Hg]Cindy Dakotaz RAIL SPECIALIST Work Phone: [facility] CenterAgijwmmnju13-70-1475 09:10-0400Heart rate58 /min Cindy Dakotaz RAIL SPECIALIST Work Phone: [facility] CenterOboutnndua09-44-8833 09:10-0400Respiratory rate19 /minLisa Duncanz RAIL SPECIALIST Work Phone: [facility] CenterRnbinhdfmj41-29-2978 09:10-0585VtR5% (BldA) [Mass fraction]97 %Cindyluna Duncanz RAIL SPECIALIST Work Phone: [facility] CenterExmgodwndi97-74-3919 09:10-0400Systolic blood tympkzmn188 mm[Hg]Cindyluna Duncanz RAIL SPECIALIST Work Phone: [facility] CenterXltpazjydo03-03-2730 10:12-0400Body mass index (BMI) [Ratio]29.32 kg/m2Cinyd Collado RAIL SPECIALIST Work Phone: [facility] CenterAacaleolre77-58-7746 10:12-0400Body temperature 98.8 [degF]Cindyluna Duncanz RAIL SPECIALIST Work Phone: [facility] CenterTefgmcohqp64-91-5178 10:12-0400Body cpruyx55.4 kg Cindy Dakotaz RAIL SPECIALIST Work Phone: [facility] CenterMavmptbvjc00-69-1379 10:12-0400Diastolic blood sllqoovi75 mm[Hg]Cindy Dakotaz RAIL SPECIALIST Work Phone: [facility] CenterYlhusarvcz27-81-8436 10:12-0400Heart rate71 /min Cindy Césarholz RAIL SPECIALIST Work Phone: [facility] CenterOiyakkzywu24-82-6495 10:12-0400Respiratory rate18 /minCindy Collado RAIL SPECIALIST Work Phone: [facility] CenterQryolbafqb75-55-8631 10:12-1034EyJ2% (BldA) [Mass fraction]98 %Cindy Collado RAIL SPECIALIST Work Phone: noTwo [facility] HospitalUbljxjfliu02-70-3641 10:12-0400Systolic blood enqfumnm864 mm[Hg]Cindy Collado RAIL SPECIALIST Work Phone: [facility] CenterKcfkyqwkyp42-42-9877 13:09-0400Body mass index (BMI) [Ratio]29.25 kg/d5ZvdcjJameson Mcleod RAIL SPECIALIST Work Phone: [facility] CenterIlafbeudma72-78-9821 13:09-0400Body uwvuul73.22 kgSajoni Mcleod RAIL SPECIALIST Work Phone: [facility] CenterBaayejrwyf82-00-1612 13:09-0400Diastolic blood uuvniudh83 mm[Hg]Jameson Mcleod RAIL SPECIALIST Work Phone: [facility] CenterVguuamsxzb04-76-7116 13:09-0400Heart rate66 /min Jameson Mcleod RAIL SPECIALIST Work Phone: noTwo [facility] Psychiatric HospitalWflifohdeu18-01-5443 13:09-0410TmL0% (BldA) [Mass fraction]98 %Jameson Mcleod RAIL SPECIALIST Work Phone: noTwo [facility] Psychiatric HospitalFibtqqeyqp70-87-7509 13:09-0400Systolic blood ikfldszw498 mm[Hg]Jameson Mcleod RAIL SPECIALIST Work Phone: [facility] CenterGidcrjcdzg03-53-5821 13:49-0400Body mass index (BMI) [Ratio]29.55 kg/m2Cindy Collado RAIL SPECIALIST Work Phone: [facility] CenterLrhgkxipom84-82-5754 13:49-0400Body temperature 98.1 [degF]Cindy Collado RAIL SPECIALIST Work Phone: noTwo Rivers Psychiatric HospitalMendchwyfr05-93-4771 13:49-0400Body qarhza45.94 kgCindy Collado RAIL SPECIALIST Work Phone: [phone] [place], [place] [address]Tmthsfzqln18-34-0735 13:49-0400Diastolic blood rcpeoiub32 mm[Hg]Cindy Césarholz RAIL SPECIALIST Work Phone: [facility] CenterJeqqeghnkc04-90-4578 13:49-0400Heart rate74 /min Cindy Césarholz RAIL SPECIALIST Work Phone: [facility] CenterWlfbnjzmmd55-84-0237 13:49-0400Respiratory rate18 /minLisa Césarholz RAIL SPECIALIST Work Phone: [facility] CenterXixgxfqfmg88-82-9007 13:49-4406QvF2% (BldA) [Mass fraction]96 %Cindy Erickhholz RAIL SPECIALIST Work Phone: [facility] CenterQvxbrlrwml70-61-3905 13:49-0400Systolic blood qeibwagm609 mm[Hg]Cindy Césarholz RAIL SPECIALIST Work Phone: [facility] CenterKypfbbjfqr09-90-4544 12:49-0500Blood Pressure LocationLauren Monserrat [facility]03-04-2025 12:49-0500Diastolic blood zudjcanq10 mm[Hg]Kori German [facility]03-04-2025 12:49-0500Heart rate61 /minLauren Monserrat [facility]03-04-2025 12:49-0500Respiratory rate18 /minLauren Monserrat [facility]03-04-2025 12:49-0500Systolic blood nkktnwyh587 mm[Hg]Kori German [facility]02-19-2025 08:51-0500Diastolic blood ebmsssmj08 mm[Hg]BERNICE CLEMENTE [facility]02-19-2025 08:51-0500Heart rate63 /minJENNIFER CORRIE [facility]02-19-2025 08:51-0500Respiratory rate17 /minJENNIFER CORRIE [facility]02-19-2025 08:51-0500Systolic blood mm[Hg]BERNICE CLEMENTE [facility]01-09-2025 10:15-0500Body itwkaa598.94 Urbano Day MD Work Phone: 1(508)151-[address] [place], [place] 5484301-09-2025 10:15-0500 Body mass index (BMI) [Ratio]23.7 kg/a9NfcyyuShaikh Barb VIDES Work Phone: 1(771)[address]01-09-2025 10:15-0500 Body uevuck51 kgShaikh Barb VIDES Work Phone: 1(313)[address] [place], [place] 8824201-09-2025 10:15-0500 Diastolic blood ilgzlsct49 mm[Hg]Shaikh Barb VIDES Work Phone: 1(344)280-[address] [place], [place] 5484301-09-2025 10:15-0500 Heart rate74 /Jeannine Day MD Work Phone: 1(072)457-[address] [place], [place] 5484301-09-2025 10:15-0500 Respiratory rate18 /Jeannine Day MD Work Phone: 1(018)5-[address] [place], [place] 5484301-09-2025 10:15-0500 SaO2% (BldA) [Mass fraction]97 %Shaikh Barb VIDES Work Phone: 1(334)279-[address] [place], [place] 5484301-09-2025 10:15-0500 Systolic blood dknjdvuc520 mm[Hg]Shaikh Barb VIDES Work Phone: [facility]12-10-2024 09:55-0500 Body ibyfwa701.9 Marie Lindseyludmila RAIL SPECIALIST Work Phone: [facility] CenterCgtcxulicb42-22-7569 09:55-0500Body mass index (BMI) [Ratio]28.19 kg/m2Lisa Césarteresaz RAIL SPECIALIST Work Phone: [facility] CenterOfbmulewzq62-30-2197 09:55-0500Body temperature 97.81 [degF]Cindy Lindseyludmila RAIL SPECIALIST Work Phone: [facility] CenterMggaajbroe63-34-1085 09:55-0500Body xfxjyx85.68 kgLisa Césarludmila RAIL SPECIALIST Work Phone: [facility] CenterRzsjncimlj81-13-2884 09:55-0500Diastolic blood mqqvokau70 mm[Hg]Cnidy Césarludmila RAIL SPECIALIST Work Phone: [facility] CenterTbfwkrvewy82-50-2563 09:55-0500Heart rate61 /min Cindy Césarteresaz RAIL SPECIALIST Work Phone: [facility] CenterYqcvvclkdx85-99-5105 09:55-0500Respiratory rate19 /minLisa Dakotaz RAIL SPECIALIST Work Phone: [facility] CenterBnyhoafugh67-07-7403 09:55-2371FhQ4% (BldA) [Mass fraction]98 %Cindy Césarteresaz RAIL SPECIALIST Work Phone: [facility] CenterUomgmbgmbm04-18-7924 09:55-0500Systolic blood mm[Hg]Cindy Césarteresaz RAIL SPECIALIST Work Phone: [facility] CenterCdwimgbjin07-94-7316 08:53-0400Body .9 cmChristophjohn paul Zazueta DO Work Phone: noTwo [facility] HospitalBborygnmba81-56-3130 08:53-0400Body mass index (BMI) [Ratio]28.15 kg/c6Hrzrdtzmgay Marbin DO Work Phone: noTwo [facility] HospitalKicjrgmjgg66-43-1692 08:53-0400Body wugyyu05.59 kgChristopher Zazueta DO Work Phone: [facility] CenterUmmimodaia94-57-6908 08:53-0400Diastolic blood tlyrxbgf63 mm[Hg]Nakul Zazueta DO Work Phone: noTwo [facility] HospitalCpxidfjpfe75-05-3844 08:53-0400Systolic blood oiphkzze134 mm[Hg]Nakul Zazueta DO Work Phone: [facility] CenterZohzpryjeo08-01-9045 13:12-0400Body jezgpn240.9 cmBenanabell Clark DO Work Phone: [facility] CenterWyradfywgf71-03-8415 13:12-0400Body mass index (BMI) [Ratio]38.92 kg/t4Mcedhfnwanabell Olmedok DO Work Phone: [facility] CenterVkpfushgyn30-09-2656 13:12-0400Body ynzpso86.44 kgBenanabell Olmedok DO Work Phone: [facility] CenterElfwdyoqym61-83-3636 09:58-0400Body wjcyqu145.9 Stephisa Heaven RAIL SPECIALIST Work Phone: [facility] CenterSlwugkardl60-59-6352 09:58-0400Body mass index (BMI) [Ratio]26.64 kg/m2Lisa Césarholz RAIL SPECIALIST Work Phone: [facility] CenterGfpkujtcgt32-45-3459 09:58-0400Body temperature 98.49 [degF]Cindy Collado RAIL SPECIALIST Work Phone: [facility] CenterDynyxqkuog29-81-6121 09:58-0400Body mkvasj65.96 kgLisa Erickhholz RAIL SPECIALIST Work Phone: [facility] CenterWsnvckhkty33-93-4983 09:58-0400Diastolic blood mm[Hg]Cindy Dakotaz RAIL SPECIALIST Work Phone: [facility] CenterWhmxksebxp60-29-3685 09:58-0400Heart rate60 /min Cindy Collado RAIL SPECIALIST Work Phone: [place] [address]Vlevupehru64-69-2257 09:58-0400Respiratory rate17 /minCindy Lindseyteresabharati RAIL SPECIALIST Work Phone: [facility] CenterHcihpqntnp84-25-2889 09:58-6779NeU1% (BldA) [Mass fraction]100 %Cindy Collado RAIL SPECIALIST Work Phone: [facility] CenterZrzbsdqydq06-42-7466 09:58-0400Systolic blood parvkrjo509 mm[Hg]Cindy Collado RAIL SPECIALIST Work Phone: [facility] CenterCeyrampdor77-56-5051 13:01-0400Blood Pressure LocationJENNIFER CORRIE [facility]07-10-2024 13:01-0400Diastolic blood iwvmbzzb16 mm[Hg]BERNICE CORRIE [facility]07-10-2024 13:01-0400Heart rate62 /minJENNIFER CORRIE [facility]07-10-2024 13:01-0400Respiratory rate19 /minJENNIFER CORRIE [facility]07-10-2024 13:01-0400Systolic blood mm[Hg]BERNICE CORRIE [facility]06-27-2024 09:52-0400Body aoqsxf144.94 cmMD Shaikh Barb Work Phone: [facility]06-27-2024 09:52-0400 Body mass index (BMI) [Ratio]23.7 kg/m2MD Shaikh Barb Work Phone: [facility]06-27-2024 09:52-0400 Body drmecfkffgd63.8 [degF]MD Shaikh Day Work Phone: [facility]06-27-2024 09:52-0400 Body kgMD Kishaajay Work Phone: 1(160)[address]06-27-2024 09:52-0400 Diastolic blood rkfcajft40 mm[Hg]MD Shaikh Day Work Phone: 1(885)320-[address] [place], [place] 5484306-27-2024 09:52-0400 Heart rate78 /min Kishaajay Work Phone: 1(067)[address]06-27-2024 09:52-0400 Respiratory rate16 /min Barb Work Phone: 1(584)[address]06-27-2024 09:52-0400 SaO2% (BldA) [Mass fraction]98 %MD Shaikh Day Work Phone: 1(524)763-[address] [place], [place] 5484306-27-2024 09:52-0400 Systolic blood mm[Hg]MD Shaikh Day Work Phone: 1(906)282-[address] [place], [place] 5484306-03-2024 12:39-0400 Blood Pressure LocationAurora Orzech [facility]2024 12:39-0400Body jcxfoyvmhvo21.88 [degF]Carmen Orzech [facility]2024 12:39-0400Diastolic blood rkzjucun89 mm[Hg]Carmen Orzech [facility]2024 12:39-0400Heart rate78 /minAurora Orzech [facility]2024 12:39-0400Systolic blood mm[Hg]Carmen Quintero [facility]05-21-2024 08:53-0400Body vdqkwa548.4 cmMartin Arita MD Work Phone: [facility]05-21-2024 08:53-0400Body mass index (BMI) [Ratio]26.85 kg/r9KdigpoyMartin Arita MD Work Phone: [facility]05-21-2024 08:53-0400Body negdmm29.37 kgMartin Arita MD Work Phone: [facility]05-21-2024 08:53-0400Diastolic blood tsfgnbuq72 mm[Hg]Martin Arita MD Work Phone: [facility]05-21-2024 08:53-0400Heart rate 56 /minMartin Arita MD Work Phone: [facility]05-21-2024 08:53-0400Systolic blood uywrqmdn999 mm[Hg]Martin Arita MD Work Phone: [facility]03-30-2024 11:10-0400Body ymwdxu722.94 cmMD Shaikh Day Work Phone: [facility]03-30-2024 11:10-0400 Body mass index (BMI) [Ratio]23.8 kg/m2MD Shaikh Day Work Phone: [facility]03-30-2024 11:10-0400 Body esnbxmpphhk67.2 [degF]MD Shaikh Day Work Phone: [facility]03-30-2024 11:10-0400 Body qoqfuh90.15 kgMD Shaikh Day Work Phone: [facility]03-30-2024 11:10-0400 Diastolic blood ojwbdemw44 mm[Hg]MD Shaikh Day Work Phone: 1(484)565-[address] [place], [place] 5484303-30-2024 11:10-0400 Heart rate58 /minMD Shaikh Day Work Phone: 1(719)070-[address] [place], [place] 5484303-30-2024 11:10-0400 Respiratory rate16 /minMD Shaikh Day Work Phone: 1(782)148-[address] [place], [place] 5484303-30-2024 11:10-0400 SaO2% (BldA) [Mass fraction]98 %MD Shaikh Day Work Phone: 1(598)[address]03-30-2024 11:10-0400 Systolic blood zfxqpdac709 mm[Hg]MD Shaikh Day Work Phone: 1(389)[address]03-28-2024 09:49-0400 Body yrsehx166.94 cm Shaikh Barb Work Phone: 1(154)[address]03-28-2024 09:49-0400 Body mass index (BMI) [Ratio]23.8 kg/m2MD Shaikh Day Work Phone: 1(336)[address]03-28-2024 09:49-0400 Body qeqaxqsxdeg68.6 [degF]MD Shaikh Day Work Phone: 1(724)916-[address] [place], [place] 5484303-28-2024 09:49-0400 Body bozszc87.15 kgMD Shaikh Day Work Phone: 1(530)097-[address] [place], [place] 5484303-28-2024 09:49-0400 Diastolic blood bedekhjh38 mm[Hg]MD Shaikh Day Work Phone: 1(709)[address]03-28-2024 09:49-0400 Heart rate73 /minMD Shaikh Day Work Phone: 1(364)714-[address] [place], [place] 5484303-28-2024 09:49-0400 SaO2% (BldA) [Mass fraction]97 %MD Shaikh Day Work Phone: 1(611)[address]03-28-2024 09:49-0400 Systolic blood gxfuzhyj239 mm[Hg]MD Shaikh Day Work Phone: 1(400)[address]03-02-2024 15:15-0500 Body hxzdrvlspnu36 [degF]MD Shaikh Day Work Phone: 1(797)[address]03-02-2024 15:15-0500 Diastolic blood xwomkoqp82 mm[Hg]MD Shaikh Day Work Phone: 1(317)[address]03-02-2024 15:15-0500 Heart rate76 /minMD Shaikh Day Work Phone: 1(069)[address]03-02-2024 15:15-0500 Respiratory rate17 /minMD Shaikh Day Work Phone: 1(241)928-[address] [place], [place] 5484303-02-2024 15:15-0500 SaO2% (BldA) [Mass fraction]95 %MD Shaikh Day Work Phone: 1(871)725[address]03-02-2024 15:15-0500 Systolic blood mm[Hg]MD Shaikh Day Work Phone: 1(163)[address]03-02-2024 04:48-0500 Body peemty82.9 kg Shaikh Barb Work Phone: 1(295)[address]03-01-2024 13:07-0500 Body .94 cm Shaikh Barb Work Phone: 1(343)[address]03-01-2024 11:49-0500 Inhaled oxygen flow rate8 L/minMD Shaikh Day Work Phone: 1(700)[address]03-01-2024 10:02-0500 Body mass index (BMI) [Ratio]25.9 kg/m2MD Shaikh Kishaajay Work Phone: 1(448)[address]02-27-2024 09:48-0500 Body .94 cmMD Shaikh Kishaajay Work Phone: 1(784)620-[address] [place], [place] 5484302-27-2024 09:48-0500 Body mass index (BMI) [Ratio]29 kg/m2MD Shaikh Leandrojustin Work Phone: 1(008)[address]02-27-2024 09:48-0500 Body efvwetphiip56.6 [degF]MD Shaikh Day Work Phone: 1(638)[address]02-27-2024 09:48-0500 Body thhpol47.85 kgMD Shaikh Barb Work Phone: 1(593)[address]02-27-2024 09:48-0500 Diastolic blood cejzeexs86 mm[Hg]MD Shaikh Day Work Phone: 1(269)[address]02-27-2024 09:48-0500 Heart rate76 /minMD Shaikh Beardajay Work Phone: 1(746)[address]02-27-2024 09:48-0500 Respiratory rate16 /minMD Shaikh Day Work Phone: 1(129)[address]02-27-2024 09:48-0500 SaO2% (BldA) [Mass fraction]98 %MD Shaikh Day Work Phone: 1(256)529-[address] [place], [place] 5484302-27-2024 09:48-0500 Systolic blood vhzyoclx508 mm[Hg]MD Shaikh Day Work Phone: 1(769)[address]02-07-2024 12:52-0500 Body srkaqo868.4 cmDuncan Haddad MD Work Phone: [facility]02-07-2024 12:52-0500Body mass index (BMI) [Ratio]26.95 kg/j7RulpleuuvDuncan Haddad MD Work Phone: [facility]02-07-2024 12:52-0500Body omcydl90.6 kgDuncan Haddad MD Work Phone: 1(945)186-[facility]02-07-2024 12:52-0500Diastolic blood udruttgg25 mm[Hg]Duncan Haddad MD Work Phone: 1(271)[address]02-07-2024 12:52-0500Heart rate 67 /minDuncan Haddad MD Work Phone: [facility]02-07-2024 12:52-0500Systolic blood thikibim879 mm[Hg]Duncan Haddad MD Work Phone: 1(773)603-[address] [place], [place] 2969001-25-2024 10:48-0500Blood Pressure LocationAurora Orzech [facility]01-25-2024 10:48-0500Diastolic blood akskmbbj18 mm[Hg]Carmen Orzech [facility]01-25-2024 10:48-0500Heart rate80 /minAurora Orzech [facility]01-25-2024 10:48-0500Systolic blood bultaahp960 mm[Hg]Carmen Orzech [facility] [place] 569621-15-2023 12:10-0500Diastolic blood cpqompkb53 mm[Hg]MD Shaikh Day Work Phone: [facility]11-15-2023 12:10-0500 Systolic blood uhvdfane459 mm[Hg]MD Shaikh Day Work Phone: [facility]09-05-2023 14:10-0400 Body xtovpc435.94 Rochelle Temple Other [employer] Other 09-05-2023 14:10-0400Body mass index (BMI) [Ratio] 26.53 kg/p8HuvpnxKori Temple Other [employer] Other 09-05-2023 14:10-0400Body oafzcetgzpy31.1 [degF]Kori Temple Other [employer] Other 09-05-2023 14:10-0400Body frvdif42.69 kgKori Temple Other [employer] Other 09-05-2023 14:10-0400Diastolic blood flzhisvl17 mm[Hg] Kori Temple Other [employer] Other 09-05-2023 14:10-0400Respiratory rate18 /minKori Temple Other [employer] Other 09-05-2023 14:10-6077AbK5% (BldA) [Mass fraction]98 % Kori Temple Other [employer] Other 09-05-2023 14:10-0400Systolic blood ixcwtzkv662 mm[Hg] Kori Temple Other [employer] Other 02-22-2023 09:30-0500Body qogbsf400.94 cmDenver Juarez Other [employer] Other 02-22-2023 09:30-0500Body mass index (BMI) [Ratio] 28.72 kg/c5VgpgdoxDenver Juarez Other [employer] Other 02-22-2023 09:30-0500Body nbiimzaalbr59.8 [degF] Denver Juarez Other [employer] Other 02-22-2023 09:30-0500Body .95 kgManataly Juarez Other [employer] Other 02-22-2023 09:30-0500Diastolic blood wiikmqnc16 mm[Hg] Denver Juarez Other [employer] Other 02-22-2023 09:30-3816YnI7% (BldA) [Mass fraction]98 % Denver Juarez Other [employer] Other 02-22-2023 09:30-0500Systolic blood ezlnkznv559 mm[Hg] Denver Juarez Other [employer] Other 10-12-2022 12:12-0400Body zsnemcjalgj18.9 [degF]MD Shaikh Day Work Phone: [facility]10-12-2022 12:12-0400 Diastolic blood vfyehkzw44 mm[Hg]MD Shaikh Day Work Phone: [facility]10-12-2022 12:12-0400 Heart rate95 /minMD Shaikh Day Work Phone: [facility]10-12-2022 12:12-0400 Respiratory rate16 /minMD Shaikh Day Work Phone: 1(084)312-[address] [place], [place] 5484310-12-2022 12:12-0400 SaO2% (BldA) [Mass fraction]98 %MD Shaikh Day Work Phone: 1(538)038[address]10-12-2022 12:12-0400 Systolic blood gtlixqng874 mm[Hg]MD Shaikh Day Work Phone: [phone])[address]10-12-2022 04:04-0400 Body ysdymt38.6 kgMD Kam Kishaajay Work Phone: [phone])[address] [place], [place] 8824210-11-2022 17:12-0400 Body vqfagf186.48 cmMD Kam Kishaajay Work Phone: 1(167)[address] [place], [place] 8824210-11-2022 13:57-0400 Diastolic blood nektauzh07 mm[Hg]MD Shaikh Day Work Phone: 1(669)[address] [place], [place] 8824210-11-2022 13:57-0400 Heart rate77 /minMD Kam Kishaajay Work Phone: 1(297)[address]10-11-2022 13:57-0400 Respiratory rate16 /min Shaikh Leandrojustin Work Phone: 1(705)[address]10-11-2022 13:57-0400 SaO2% (BldA) [Mass fraction]95 %MD Shaikh Day Work Phone: 1(978)[address]10-11-2022 13:57-0400 Systolic blood qjjvtatm360 mm[Hg]MD Shaikh Day Work Phone: 1(216)[address]10-11-2022 11:24-0400 Body beiouxvgtuz58.9 [degF]MD Shaikh Day Work Phone: 1(536)[address]10-11-2022 03:56-0400 Body .48 cmMD Shaikh Day Work Phone: [facility]10-11-2022 03:56-0400 Body jxuypo21.9 kgMD Shaikh Day Work Phone: [facility]08-17-2022 10:15-0400 Body iwepna010.94 cmManataly Juarez Other [facility] [employer] Other 08-17-2022 10:15-0400Body mass index (BMI) [Ratio]35.9 kg/f7AudvfwnDenver Juarez Other [employer] Other 08-17-2022 10:15-0400Body lqkqciayvmd72.2 [degF] Denver Juarez Other [employer] Other 08-17-2022 10:15-0400Body .18 kgManataly Juarez Other [employer] Other 08-17-2022 10:15-0400Diastolic blood wspfozkx59 mm[Hg] Denver Juarez Other [employer] Other 08-17-2022 10:15-8111MhU9% (BldA) [Mass fraction]97 % Denver Juarez Other [employer] Other 08-17-2022 10:15-0400Systolic blood gnasxjwc191 mm[Hg] Denver Juarez Other [employer] Other 08-12-2022 14:15-0400Body mjiaib206.94 Melinda Das Other [employer] Other 08-12-2022 14:15-0400Body mass index (BMI) [Ratio]35.9 kg/h5Tqgmk Das Other [employer] Other 08-12-2022 14:15-0400Body dzdfsynptfs00.2 [degF]Ilda Das Other [employer] Other 08-12-2022 14:15-0400Body .18 kgPeggy Das Other [employer] Other 08-12-2022 14:15-0400Respiratory rate18 /minPeggy Das Other [employer] Other 08-12-2022 14:15-7597KiN1% (BldA) [Mass fraction]98 % Ilda Das Other [employer] Other 08-10-2022 17:00-0400Body iyllap274.94 [facility] Other [employer] Other 08-10-2022 17:00-0400Body mass index (BMI) [Ratio]35.9 kg/z7Pdkywykchristina Arrington Other [employer] Other 08-10-2022 17:00-0400Body wsysyz04.18 kgCochristina Arrington Other [employer] Other 03-23-2022 11:45-0400Body .94 [facility] Other [employer] Other 03-23-2022 11:45-0400Body mass index (BMI) [Ratio]35.9 kg/m4Xamkeco Murphy Other [employer] Other 03-23-2022 11:45-0400Body arnybe50.18 kgSusie Arrington Other [facility] [employer] Other 01-20-2022 10:00-0500Body .94 cmManataly Juarez Other [facility] [employer] Other 01-20-2022 10:00-0500Body mass index (BMI) [Ratio] 36.27 kg/b5HuoowsrDenver Juarez Other [employer] Other 01-20-2022 10:00-0500Body jlkgaqgjbpl66.5 [degF] Denver Juarez Other [employer] Other 01-20-2022 10:00-0500Body gyhmhs66.09 kgMattbarbara Juarez Other [employer] Other 01-20-2022 10:00-0500Diastolic blood ctcoftgr48 mm[Hg] Denver Juarez Other [employer] Other 01-20-2022 10:00-3210AeL2% (BldA) [Mass fraction]99 % Denver Juarez Other [employer] Other 01-20-2022 10:00-0500Systolic blood kcivjkhr972 mm[Hg] Denver Juarez Other [employer] Other 10-21-2021 10:00-0400Body hvixuf608.94 cmManataly Juarez Other [employer] Other 10-21-2021 10:00-0400Body mass index (BMI) [Ratio] 36.27 kg/w7Tbwybzctye Juarez Other [employer] Other 10-21-2021 10:00-0400Body dxfybo59.09 kgMattmarylouw Larry Other [employer] Other 10-21-2021 10:00-0400Diastolic blood iiybleyg23 mm[Hg] Denver Larry Other [employer] Other 10-21-2021 10:00-0400Systolic blood dbgmhuuw593 mm[Hg] Denver Juarez Other [employer] Other 09-30-2021 10:30-0400Body cwhabx855.94 cmMattbarbara Juarez Other [employer] Other 09-30-2021 10:30-0400Body mass index (BMI) [Ratio]35.9 kg/k7Ejbvnmxtye Juarez Other [employer] Other 09-30-2021 10:30-0400Body ntuuzx26.18 kgMattmaryloutye Juarez Other [employer] Other 09-30-2021 10:30-0400Diastolic blood hrwsdctu11 mm[Hg] Denver Juarez Other [employer] Other 09-30-2021 10:30-0400Systolic blood gtejqerm168 mm[Hg] Denver Juarez Other [employer] Other Encounters Encounter DateEncounter TypeCare ProviderFacilityStart: 16-43-3596hjodiqwnclSzqo J AichholzFacility:[facility]art: 12-03-2024 End: 71-65-6640khbvgjvfryLwil J Aichholz RAIL SPECIALIST-C Work Phone: 4(353)110-2510857-2219-[facility] NeurologyStart: 12-03-2024 End: 61-89-4127Gzzueoo encounter procedureSsara Mcleod APRN-FNP-C-[facility] Work Phone: Start: 11-26-2024 End: 72-55-1209kscsmyithnYxin J Aichholz RAIL SPECIALIST-C Work Phone: [facility] Work Phone: Start: 11-26-2024 End: 86-21-9223Hdmwhmz encounter procedureCindy Collado RAIL SPECIALIST-C-[facility] Work Phone: Start: 45-88-5007Jhrjclulxd RecurringLisa Orlando Collado WW-Y-Pdwykmf[address] TherapyStart: 11-17-2024 End: 64-97-8158rsabdlgibxOpxtaz X OrzechFacility:[facility] CENTERtart: 11-17-2024 End: 92-64-9308Fqyodnj encounter procedureAurora X Orzech [facility] Start: 94-81-1421Stnrwfh encounter procedureLisa Heaven RAIL SPECIALIST-C Work Phone: [facility]: 10-08-2024 End: 61-09-8371jqlbapsmwbOrbegj X OrzechFacility:EU [place]kyStart: 10-08-2024 End: 38-65-9275Huiwzjl encounter procedureAurora X Orzech [facility] Start: 09-29-2024 End: 34-45-2703NpjjkoJfdv Aichholz RAIL SPECIALIST Work Phone: NODZ CWM FMComment on above:Migraine with aura and without status migrainosus, not intractableAnxiety and depressionStart: 09-28-2024 End: 14-92-8437GysxtgDrjv Aichholz RAIL SPECIALIST Work Phone: [facility] CWM FMStart: 09-22-2024 End: 02-88-3515IbxkgqCcvl Aichholz RAIL SPECIALIST Work Phone: NOSA CWM FMComment on above:Psychophysiological insomniaStart: 00-34-6572wqptskmxuiEijkpse R WATERSFacility:EU [place]vueStart: 09-15-2024 End: 23-88-6717uvnofqgseaXnhcgcw R WATERSFacility:FTMCStart: 09-15-2024 End: 21-02-4302Ndizdpi encounter procedureAlexandr OVALLE [facility] Start: 09-03-2024 End: 63-71-0859plzoobshoxShhrwvp R WATERSFacility:FTMCStart: 08-21-2024 End: 88-98-4734Sxwanyebp Result EncounterGeneric External Data ProviderNOMS External Department UnsolicitedStart: 08-21-2024 End: 30-17-1522Esxsolntu Result EncounterGeneric External Data ProviderNOMS External Department UnsolicitedStart: 08-18-2024 End: 19-38-6385isdklshcoeUamxwmf R WATERSFacility:FTMCStart: 08-18-2024 End: 56-65-3013Rijlega encounter procedureAlexandr OVALLE [facility] Start: 08-17-2024 End: 09-38-4426SrbvcjAmnv Aichholz RAIL SPECIALIST Work Phone: NOUT CWM FMComment on above:Peripheral vascular disease, unspecified (Primary Dx); Atherosclerosis of coronary artery of algaaciq heart, unspecified vessel or lesion type, unspecified whether angina present ; Stenosis of carotid artery, unspecified lateralityStart: 08-13-2024 End: 51-08-6811gsvhrycfcjZqwm J Aichholz Work Phone: [facility] Work Phone: Start: 08-13-2024 End: 87-01-8375Aymaxqf encounter Caro Centersara Mcleod [facility] Work Phone: Start: 08-12-2024 End: 05-72-0651SpyoygGzxi Aichholz RAIL SPECIALIST Work Phone: noms CWM FMComment on above:Primary hypertension ; Anxiety and depression ; Psychophysiological insomnia; Atherosclerosis of coronary artery of algaaciq heart, unspecified vessel or lesion type, unspecified whether angina present ; Stenosis of right carotid artery; Cerebrovascular accident (CVA), unspecified mechanism (HCC); Migraine with aura and without status migrainosus, not intractableMuscle spasm (Primary Dx)Start: 08-11-2024 End: 36-12-6879Ennwjz Elijah Collado RAIL SPECIALIST Work Phone: noms CW FMStart: 08-11-2024 End: 39-50-4041Knefnd Elijah Collado RAIL SPECIALIST Work Phone: noms CW FMStart: 08-11-2024 End: 92-83-4983Wppqoumig Result EncounterGeneric External Data ProviderNOMS External Department UnsolicitedStart: 08-11-2024 End: 48-56-7205ppzvinsppcSQFE AICHHOLZNot AvailableStart: 08-11-2024 End: 32-33-2335Uzufpi outpatient visit 25 minutesCindy Collado RAIL SPECIALIST Work Phone: noms CWM FMComment on above:Primary hypertension (Primary Dx); Atherosclerosis of coronary artery of [place] heart, unspecified vessel or lesion type, unspecified whether angina present ; CRYSTAL (generalized anxiety disorder) ; Recurrent major depressive disorder, in full remission ; Episode of recurrent major depressive disorder, unspecified depression episode severity ; Overflow incontinence of urine; Psychophysiological insomniaStart: 08-05-2024 End: 32-11-5790nxyqkhercbFWVWWZOB E PERRYFacility:[place]Start: 08-05-2024 End: 60-77-5046Snjsflv encounter procedureJENNIFER E CORRIE [facility] Start: 07-22-2024 End: 19-62-1138nlsemogzruACEOEZ [facility] Start: 07-16-2024 End: 76-65-5885pgrvzzldawJCRLJEGY E PERRYFacility:[place]Start: 07-16-2024 End: 11-51-7976Cvdwdxu encounter procedureJENNIFER E CORRIE Executive [facility] start: 07-01-2024 End: 48-62-2298KmnxmjAbzz Heaven FLORES Work Phone: noms CW FMComment on above:Chronic UTI (Primary Dx); Anxiety and depression (CMS/HCC); Overflow incontinence of urineStart: 06-30-2024 End: 26-80-9665Umn Drop offPatrick R OVALLE [facility] Start: 06-30-2024 End: 33-78-4150juagmzkntsTipxmiv R WATERSFacility:FTMCStart: 06-30-2024 End: 13-81-8857Gezltrd encounter procedureJENNIFER E CORRIE [facility] Comment on above:Primary progressive aphasia (CMS/HCC) (Primary Dx); Ataxia; Memory difficulty; History of ischemic stroke; Other insomnia; DULCE MARIA (obstructive sleep apnea); Severe episode of recurrent major depressive disorder, without psychotic features (HCC) (CMS/HCC); Severe anxietyStart: 06-30-2024 End: 21-61-2585zwwfmygfwlWXJQ ROMEROot AvailableStart: 06-24-2024 End: 92-17-0753Uxulrzzry Result EncounterSsara Mcleod RAIL SPECIALIST Work Phone: NOMS External Department UnsolicitedStart: 06-24-2024 End: 17-40-9961Spvfzexjt Result EncounterSsara Mcleod RAIL SPECIALIST Work Phone: NOMS External Department UnsolicitedStart: 06-15-2024 End: 47-20-2426Rqjnxadavian Hare PhD Work Phone: ANA SANDUSKYStart: 06-15-2024 End: 51-59-8613Busrfpdavian Hare PhD Work Phone: ANA SANDUSKYStart: 06-15-2024 End: 58-55-0701icxpwokayiUBHWXNBD E PERRYFacility:EU SanduskyStart: 06-15-2024 End: 10-20-0058Gwbwbat encounter Mylene Hare PhD Work Phone: ANA SANDUSKYComment on above:Expressive aphasia (Primary Dx); Memory difficulty; History of ischemic stroke; Staring episodes; Other insomnia; Stress due to family tensionStart: 2024 End: 36-18-0785Asupap svetlanaheetCindy Collado RAIL SPECIALIST Work Phone: NOMS CWM FMStart: 2024 End: 23-45-1631Nbtjpl flowsheetCindy Collado RAIL SPECIALIST Work Phone: NOMS CWM FMStart: 2024 End: 45-18-5574Bucdag outpatient visit 10 minutesLisa Collado RAIL SPECIALIST Work Phone: NOMS CWM FMComment on above:Acute diffuse otitis externa of both ears (Primary Dx)Start: 2024 End: 86-66-3246dllvobcxbeCBIF AICHHOLZNot AvailableStart: 06-01-2024 End: 16-22-6475Qnsulg Franco Mcleod RAIL SPECIALIST Work Phone: aNA BELLEVUEStart: 06-01-2024 End: 92-58-7881Wxsbgk Franco Mcleod RAIL SPECIALIST Work Phone: aNA BELLEVUEStart: 06-01-2024 End: 75-69-9253Xletmv outpatient visit 40 minutesJameson Mcleod RAIL SPECIALIST Work Phone: aNA BELLEVUEComment on above:Ataxia (Primary Dx); Gait instability; Expressive aphasia; Memory difficulty; History of ischemic strokeStart: 06-01-2024 End: 80-76-8317pihedxxukqQUTWG HARSHANot AvailableStart: 05-29-2024 End: 99-69-4100GjljvvAgrl Aichholz RAIL SPECIALIST Work Phone: NOMS CWM FMComment on above:Dizziness and giddiness (Primary Dx)Start: 05-12-2024 End: 85-31-1844Fupfbx flowsheetSuziesa Aichholz RAIL SPECIALIST Work Phone: NOMS CWM FMStart: 05-12-2024 End: 90-97-8317Rwibxm flowsheetLisa Aichholz RAIL SPECIALIST Work Phone: NOMS CWM FMStart: 05-12-2024 End: 54-83-5782Xfrsdcghi Result EncounterLisa Aichholz RAIL SPECIALIST Work Phone: NOKX External Department UnsolicitedStart: 05-12-2024 End: 63-10-6660ugloppobcwLRRB AICHHOLZNot AvailableStart: 05-12-2024 End: 66-90-2157Uluxtc outpatient visit 25 minutesLisa Erickhholz RAIL SPECIALIST Work Phone: NOMS CWM FMComment on above:Primary hypertension (CMS/HCC) (Primary Dx); Cerebrovascular accident (CVA), unspecified mechanism (CMS/HCC); Dizziness and giddiness; Overflow incontinence of urine; CRYSTAL (generalized anxiety disorder) (CMS/HCC); Impaired mobility and activities of daily livingStart: 05-05-2024 End: 85-87-0298zljwoohhewIQIWQUOQ E PERRYFacility:FTMCStart: 05-05-2024 End: 06-55-7602Nxi Drop offJENNIFER E CORRIE [facility] Start: 05-05-2024 End: 67-26-6679ixktallpdqTHVKWXRB E PERRYFacility:EU [place]uskyStart: 04-14-2024 End: 77-50-1404kfgoueshpzKkklcs TannaFacility:EU BellevueStart: 04-14-2024 End: 95-78-1110Wwnnjud encounter procedureLauren Monserrat [facility] start: 04-01-2024 End: 91-72-8713Dbl Drop offPatrick R OVALLE [facility] Start: 04-01-2024 End: 52-16-6555aeapzmucieMebindw R WATERSFacility:FTMCStart: 04-01-2024 End: 56-58-4165Ivsofki encounter procedureJENNIFER E CORRIE [facility] Start: 04-01-2024 End: 12-44-1569uxckhktjieHZ-C BERNICE E PERRYFacility:EU SanduskyStart: 04-01-2024 End: 89-89-8341Yjfxwxb encounter procedureJENNIFER E CORRIE [facility] Start: 02-26-2024 End: 63-24-2793YbtyeeMarlo Collado NP Work Phone: noms CWM FMComment on above:Cerebrovascular accident (CVA), unspecified mechanism (CMS/HCC) (Primary Dx); Dysarthria; White matter disease; Stenosis of carotid artery, unspecified laterality; Peripheral vascular disease, unspecified (CMS/HCC); Overflow incontinence of urine; Dizziness and giddinessStart: 02-20-2024 End: 97-00-0626Uvs Drop offJENNIFER E CORRIE [facility] Start: 02-20-2024 End: 11-78-6926hjlblupvdhYXJEXPOK E PERRYFacility:FTMCStart: 02-20-2024 End: 41-26-1118Hdfauhp encounter procedureJENNIFER E CORRIE [facility] Start: 02-20-2024 End: 94-67-2784Uqfjqbg encounter procedureSrudy Day MD Work Phone: [facility] Work Phone: Start: 02-20-2024 End: 67-69-1457mjyxbhlqkvNnlrev Fawwad MD Work Phone: [facility] Work Phone: Start: 01-29-2024 End: 12-29-9011xqlyfspnipYEOB J AICHHOLZFacility:EU [place]uskyStart: 01-29-2024 End: 53-01-6988Zpdgacl encounter procedureJENNIFER E CORRIE [facility] Start: 01-23-2024 End: 55-33-3464VxhbidAaml Aichholz NP Work Phone: noms CWM FMComment on above:Chronic UTI (Primary Dx) Start: 01-21-2024 End: 64-68-7154Ovpjux flowsJoe Collado RAIL SPECIALIST Work Phone: noms CWM FMStart: 01-21-2024 End: 92-83-9353Yklest flowsJoe Collado RAIL SPECIALIST Work Phone: noms CWM FMStart: 01-21-2024 End: 67-92-4685Tsakpraa Result EncounterCindy Collado RAIL SPECIALIST Work Phone: noms External Department UnsolicitedStart: 01-21-2024 End: 85-99-3650wfpgepvuxdWGGP AICHHOLREBECCAot AvailableStart: 01-21-2024 End: 40-39-4197Vclvkf outpatient visit 40 minutesCindy Collado RAIL SPECIALIST Work Phone: noms CWM FMComment on above:Primary hypertension (CMS/HCC) (Primary Dx); Heart failure, unspecified (CMS/HCC); Peripheral vascular disease, unspecified (CMS/HCC); Atherosclerosis of coronary artery of algaaciq heart, unspecified vessel or lesion type, unspecified [...] incontinence of urine; Chronic UTIStart: 12-12-2023 End: 08-83-9555dupasanrgsFO Shaikh Leandrojustin Work Phone: [facility] Work Phone: Start: 12-12-2023 End: 26-23-4877Yssvlki encounter procedureMD Shaikh Rodrigusecolton Work Phone: [facility]-XRay [facility] Work Phone: Start: 12-09-2023 End: 85-00-8272Cztohm outpatient new 60 minutesChristopher Marbin DO Work Phone: NOMS ST NEUROLOGYComment on above:Ataxia (Primary Dx); History of ischemic strokeStart: 12-09-2023 End: 45-37-7906ytiotzwebcCNIOLYCEJGA HASSETTNot AvailableStart: 12-02-2023 End: 06-50-5957Aqtjfg flowsheetBenjamin W Murcek DO Work Phone: noms ENT SANDUSKYStart: 12-02-2023 End: 90-21-4269Vtyupx flowsheetBenjamin W Murcek DO Work Phone: noms ENT SANDUSKYStart: 12-02-2023 End: 62-04-5915Ucgkdu outpatient new 45 minutesBenjamin W Murcek DO Work Phone: noms ENT SANDUSKYComment on above:Oropharyngeal dysphagia (Primary Dx)Start: 12-02-2023 End: 02-04-5944UmbyrpCtxt Aichholz RAIL SPECIALIST Work Phone: NOMS CWM FMComment on above:Anxiety and depression (CMS/HCC)Start: 11-19-2023 End: 37-36-7828OnuhnwTkfr Aichholz RAIL SPECIALIST Work Phone: [facility] CWM FMComment on above:Urinary tract infection symptoms (Primary Dx)Start: 11-16-2023 End: 17-08-4916Ypsubivge Result EncounterLisa Aichholz RAIL SPECIALIST Work Phone: NOTL External Department UnsolicitedStart: 11-16-2023 End: 08-33-3810Gggfbfgot Result EncounterLisa Aichholz RAIL SPECIALIST Work Phone: NOKG External Department UnsolicitedStart: 10-30-2023 End: 54-19-2611MxarqvTqxe Aichholz RAIL SPECIALIST Work Phone: NOM[facility] CWM FMComment on above:Acute cystitis without hematuria (Primary Dx)Urinary tract infection symptoms (Primary Dx)Start: 10-26-2023 End: 65-23-9813Tkzahxsvp Result EncounterLisa Césarholz RAIL SPECIALIST Work Phone: noms External Department UnsolicitedStart: 10-26-2023 End: 57-64-9825Ogysngplb Result EncounterLisa Aichholz RAIL SPECIALIST Work Phone: noms External Department UnsolicitedStart: 10-22-2023 End: 56-17-9328Qfwdrw flowsheetLisa Aichholz RAIL SPECIALIST Work Phone: noms CWM FMStart: 10-22-2023 End: 24-69-4630Chgbft flowsheetLisa Aichholz RAIL SPECIALIST Work Phone: NOTY CWM FMStart: 10-22-2023 End: 24-29-3557Hyujzi outpatient visit 25 minutesLisa Erickhholz RAIL SPECIALIST Work Phone: noms CWM FMComment on above:Oropharyngeal dysphagia (Primary Dx); Dysarthria; Cerebrovascular accident (CVA), unspecified mechanism (CMS/HCC); Atherosclerosis of coronary artery of algaaciq heart, unspecified vessel or lesion type, unspecified whether angina present (CMS/HCC); Primary hypertension (CMS/HCC); Stenosis of right carotid artery; Mixed hyperlipidemia (CMS/HCC); Dizziness and giddiness; Impaired mobility and activities of daily living; Migraine with aura and without status migrainosus, not intractable (CMS/HCC); Muscle spasm; Anxiety and depression (CMS/HCC); Iron deficiency; Psychophysiological insomniaStart: 10-22-2023 End: 42-13-8059yfpkbtrvxuZUFG AICHHOLZNot AvailableStart: 10-09-2023 End: 25-85-3161Sbqxzu OnlyLisa Césarholz RAIL SPECIALIST Work Phone: noms CWM FMComment on above:Cerebrovascular accident (CVA), unspecified mechanism (CMS/HCC) (Primary Dx); Oropharyngeal dysphagia; DysarthriaStart: 09-11-2023 End: 10-55-7240cadgxmrdjqKGINMZ [facility] Start: 09-09-2023 End: 48-38-8674qkassqqdlbBBYKQK FAWWADNot AvailableStart: 08-26-2023 End: 52-19-7393Vkxwqzgeh Result EncounterSrudy Day MD Work Phone: noms External Department UnsolicitedStart: 08-26-2023 End: 70-38-1256Lzgrswqpx Result EncounterSrudy Day MD Work Phone: noms External Department UnsolicitedStart: 08-21-2023 End: 12-63-0768bzjajbnzpvKK-C BERNICE CLEMENTEFacility:EU SanduskyStart: 08-21-2023 End: 92-40-3760Qirpahh encounter procedureBERNICE CLEMENTE [facility] Start: 08-21-2023 End: 07-69-8550knjdclocfmGIXDDJ FAWWAMITCHot AvailableStart: 08-08-2023 End: 64-43-4950ubasavatruDC Barb Work Phone: [facility] Work Phone: Start: 08-08-2023 End: 02-19-3774Wqyvbnq encounter procedureMD Barb Work Phone: [facility] Vascular Surgery Work Phone: Start: 07-15-2023 End: 66-09-4736wgbntkzetmCyyomi X OrzechFacility:FTMCStart: 07-15-2023 End: 13-35-4527Xvp Drop offAurora X Orzech [facility] Start: 07-15-2023 End: 61-51-2295dcqrstahtiDougdr X OrzechFacility:EU [place]uskyStart: 07-15-2023 End: 83-95-0695Tmgwefr encounter procedureAurora Jag Quintero [facility] Start: 07-05-2023 End: 21-59-5586Uhthhigdi encounterClairaretha Bowling CMAProMedica Physicians NeurologyComment on above:office notesStart: 07-02-2023 End: 91-30-7854njlyyaimgaOCQWUYN RASHIDVeterans Health Administration Ambulatory PPGStart: 07-02-2023 End: 31-63-5551Llzjkk outpatient visit 25 minutesMartin Arita MD Work Phone: [facility] Phys[facility] NeurologyComment on above: Functional gait disorder (Primary Dx); DizzinessStart: 06-05-2023 End: 31-20-6935Ohvwzqgaq encounterLamelanie GregoryProMedica Physicians Neurology Start: 44-83-2242Vclokvr encounter procedureLisa Heaven FLORES Work Phone: [facility] HealthcareStart: 05-12-2023 End: 43-11-9432hkbezmykkrTppsmf DymondFacility:[facility] Start: 05-12-2023 End: 86-25-4695qwrhcxywvyYY-C Hannah Still Work Phone: [facility] Work Phone: Start: 05-12-2023 End: 86-03-6856Otjhiks encounter procedureNP-C Hannah Still Work Phone: [facility] Thierry Work Phone: Start: 05-11-2023 End: 14-09-5506awklgxgqjqXU Shaikh Fawwad Work Phone: [facility] Work Phone: Start: 05-11-2023 End: 56-45-0408Lftwpyl encounter procedureMD Shaikh Day Work Phone: [facility] Urgent Care Thierry Work Phone: Start: 05-09-2023 End: 33-26-5239jsmepmjtnpET Shaikh Fawwad Work Phone: [facility] Work Phone: Start: 05-09-2023 End: 64-41-2643Tgswiwu encounter procedureMD Shaikh Day Work Phone: [facility] Vascular Surgery Work Phone: Start: 60-47-4351Ote-patient / Non-visitMD Shaikh Day Work Phone: [facility] Vascular Surgery Work Phone: Start: 04-12-2023 End: 56-69-2718Yaeygcwvmd and management of inpatientMD Shaikh Barb Work Phone: [facility] [place] [facility] Work Phone: Start: 59-36-0782Ceubxgeup encounterLinalfreda Jay Physicians NeurologyComment on above:Sooner ApptStart: 04-09-2023 End: 48-36-0585Ackyaka encounter procedureMD Shaikh Day Work Phone: [facility] Vascular Surgery Work Phone: Start: 75-33-3939Lumrfe Yulisa Day MD Work Phone: NOIA CWM IMComment on above:Anxiety and depression (CMS/HCC) (Primary Dx)NEW PATIENT REFERRALStart: 03-20-2023 End: 49-05-8159aazamsssgmYTOISQCRT A [facility] Ambulatory PPG Start: 03-20-2023 End: 39-49-5473Sgmxde outpatient new 45 minutesMosarita Haddad MD Work Phone: [facility] NeurologyComment on above:Dizzy (Primary Dx); 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 (CMS-HCC); DizzinessStart: 03-07-2023 End: 01-00-3133mfpxualehqMWCJOS FAWWADFacility:EU [place]uskyStart: 03-07-2023 End: 93-59-2162Elwkzgn encounter procedureAurora X Orzech [facility] Start: 95-23-9093hlwafuonfnNJOPWis[facility] Ambulatory PPGStart: 03-04-2023 End: 05-58-4478Ubyhpcrtn encounterPaandrew Mendoza Physicians Neurology Comment on above:AppointmentStart: 59-63-4397jecbmqhpajTLTXWisconsin [facility] Hospital[facility] Ambulatory PPGStart: 03-01-2023 End: 87-50-7942Kmhjswntu Result EncounterGeneric External Data ProviderNOMS External Department UnsolicitedStart: 03-01-2023 End: 35-96-5426Uhzyoneor Result EncounterGeneric External Data ProviderNOMS External Department UnsolicitedStart: 03-01-2023 End: 20-95-4587Ctzaepzzy department patient visitCHI St. [facility] Ambulatory PPGStart: 48-53-1161czlexzrapaZVHLVM FAWWADFacility:EU NorwalkStart: 67-18-0836kuvdlzwwxxWUFLWisconsin Heart Hospital[facility] Ambulatory PPGStart: 77-07-7270Qymwpymuu encounterSandra ClarkeMedica Physicians Neurology Comment on above:paperworkStart: 01-21-2023 End: 68-06-7021mmpsqsurllIMBairon Day Work Phone: [facility] Work Phone: Start: 01-21-2023 End: 51-68-1523Cazfoqwyzn RecurringMD Shaikh Beardwwacolton Work Phone: [facility]-Physical Therapy [address]re[address] RdStart: 10-16-2022 End: 77-15-6615zcsimbserbNycsmo Bailey Other [employer] Other Start: 26-94-0463Rzfvvh outpatient visit 15 minutes Kori WindyFPG Urgent Care ClydeStart: 04-04-2022 End: 73-29-0082fbrczbioxxKacyexv Langenberg Other [facility] [employer] Other Start: 45-86-5213Kjadwp outpatient visit 15 minutes Denver MillernorahFPG Vascular SurgeryStart: 03-06-2022 End: 24-95-4084uhexyyajvdQonkg Keller Other nort [employer] Other Start: 83-82-4543Wphzgisvc encounterEarline HarrisFPUte Urgent Care [facility]: 03-02-2022 End: 77-28-2882uxdaydkulmHV Gerry Chaudharysrini Work Phone: [facility] Work Phone: Start: 03-02-2022 End: 89-65-4057Qzxoncmk Referred Gerry Shafergene Work Phone: [facility]-Lab [address] [place] Work Phone: Start: 02-21-2022 End: 52-45-0743nkdktchhesRJZJPQE BOESFacility:Q3Rdgfw: 02-20-2022 End: 56-67-3944qhzaiqylwwFQPPJH H FAWWADFacility:T1Isrxx: 01-31-2022 End: 35-51-9133nejvfulhooTOGFKS H FAWWADFacility:I8Xlmni: 01-22-2022 End: 37-72-5498hdsjgbwuxuUTRFMT H FAWWADFacility:R7Ecauz: 01-18-2022 End: 72-34-0524cwjldktwuyMPDQHTN TUCKERFacility:S0Svcsr: 01-09-2022 End: 78-09-6388dwmwtwwblnQS Shaikh Barb Work Phone: [facility] Work Phone: Start: 01-09-2022 End: 07-76-6420Krixbibhyv RecurringMD Shaikh Day Work Phone: [facility]-Speech Therapy [address]reta RdStart: 01-02-2022 End: 01-78-2131eshgemfsryIOZCUQ H FAWWADFacility:W5Pkmrk: 12-07-2021 End: 98-75-7044unfnxpmlnwWAGSEW H FAWWADFacility:J2Zkrfi: 11-27-2021 End: 23-39-5427evtpiutrkcLQDNRQ H FAWWADFacility:V9Jdqcf: 11-26-2021 End: 93-34-8330ijdgbdjwpfRGCVZY H FAWWADFacility:O4Ovtkf: 11-24-2021 End: 72-99-3843Vihkpfuhf department patient bgexp217 [facility] Facility:[id number]: 11-21-2021 End: 70-15-8552Dhgciprmkq and management of inpatientMD Shaikh Barb Work Phone: [facility]-[address] [place] Med SurgStart: 14-55-4535Wfdzegkqrx RecurringMD Shaikh Day Work Phone: [facility]-Speech Therapy [address]re[address] RdStart: 10-31-2021 End: 14-68-3329vvlrbpntjoXgoqnuk Langenberg Other [employer] Other Start: 86-56-3351Ofagpxwue encounterDenver Juarez [facility] Referral CoordinatorStart: 10-24-2021 End: 51-84-2441apdvovcuaiYOVMMS H FAWWADFacility:G3Rxhla: 10-16-2021 End: 18-40-0354Cojdnuzmxq and management of inpatientSHAIKH H FAWWADFacility:H1 Start: 09-27-2021 End: 02-29-9942oonpugstckQyydclt Langenberg Other [employer] Other Start: 14-99-4346Enxbhe outpatient visit 15 minutes Denver LarryFPUte Vascular SurgeryStart: 09-22-2021 End: 68-57-8485urfuqggqqwLkmfn Das Other nort [employer] Other Start: 11-32-1740Pbddzm outpatient visit 15 minutes Ilda DasFPG Urgent Care Cushing RoadStart: 09-20-2021 End: 45-72-7803aukrtueezuUdysusq Calvey Other [employer] Other Start: 22-51-7055Iaqkru outpatient visit 10 minutes Susie ArringtonFPUte Manjarrez OrthopedicsStart: 09-02-2021 End: 72-40-8144kxzylevkxaOZQEMX H FAWWADFacility:L8Zqlmk: 08-31-2021 End: 99-62-0064Yrsxhwy encounter procedureMD Shaikh Barb Work Phone: [facility] VascularStart: 50-37-7994Ylacnwdwin RecurringMD Kam Barb Work Phone: [facility]-Speech Therapy Mereta RdStart: 06-75-5143addazcjzfyGBLNJFY TUCKERFacility:S0Buiid: 08-02-2021 End: 65-23-3844jqnwhtnauwUeidpzs Cal[employer] Other [employer] Other Start: 08-02-2021 End: 47-68-7316Kwcqkwr encounter procedureCollchristina [facility]oped[facility] Start: 07-29-2021 End: 21-68-4711jmgcvngqqjCITCXL H FAWWADFacility:N0Nhvbn: 07-12-2021 End: 12-62-8409eohinszuylGkaleyg Calvey Other [employer] Other Start: 98-90-1167Jamhhv outpatient visit 15 minutes Susie ArringtonFPUte Manjarrez OrthopedicsStart: 07-12-2021 End: 69-32-2983Faneocs encounter procedureMD Shaikh Barb Work Phone: [facility]-XRay [facility] Start: 06-15-2021 End: 94-45-4188Coivccnmmf RecurringMD Shaikh Barb Work Phone: [facility]-Enterprise Systems Engineer Pabon RdStart: 05-31-2021 End: 83-68-8558nwypuqpxjbUdwqmsm Calvey Other [employer] Other Start: 88-40-9226Tetuyb follow up visit related to original pxColleen CalveyFPG [facility] OrthopedicsStart: 05-08-2021 End: 91-26-7048svgtwgyobxVDABUA H FAWWADFacility:D7Xyojb: 05-03-2021 End: 04-67-2795qfpejjwgcmNfsxxwj Cal[place] Other [employer] Other Start: 02-95-9156Gzvtfr follow up visit related to original pxColleen CalveyFPG [facility] OrthopedicsStart: 03-30-2021 End: 50-06-4141urlpivqcdgITXFAR H FAWWADFacility:C8Ufgfu: 03-02-2021 End: 63-65-8441bdvvqcfdaaZbkdwrx Lang[place] Other [employer] Other Start: 15-80-8612Hvqzoj outpatient visit 15 minutes [place] Hill Vascular SurgeryStart: 03-45-7294Eegxfo outpatient visit 25 minutesMattbarbara Hill Vascular SurgeryStart: 07-19-3339Drcjzr outpatient visit 15 minutesMatthew Liz Vascular Surgery Procedures DateProcedureProcedure DetailPerforming ClinicianStart: 89-21-1026Kdiybrzwc of substance into bladder wallAurora Ingrid Start: 21-91-1701FH ECHO DOPPLER COMPLETEGeneric External Data ProviderStart: 30-49-0577NV KARSTEN PERF SPECT REST STRGeneric External Data ProviderStart: 29-37-6482NFI HEAD/BRAIN WO/W CONTRSarah Mcleod RAIL SPECIALIST Work Phone: Start: 58-78-1500RF CERVICAL SPINE WO/W CONSarah Mcleod RAIL SPECIALIST Work Phone: Start: 36-86-0356BPQ CREATININESarah Mcleod RAIL SPECIALIST Work Phone: Start: 08-86-5318PTY CBC WITH AUTO DIFFLisa Aichholz RAIL SPECIALIST Work Phone: Start: 90-61-5146Wpznu dip stick/tablet rgnt non-auto w/o micrscpLisa Césarholz RAIL SPECIALIST Work Phone: Start: 33-80-0716ZOFNGLL TRACT INFECTION (HTRX)Cindy Dakotaz RAIL SPECIALIST Work Phone: Start: 60-40-4444DKQ UA (CLEAN/CATCH) MICROSCOPIC IF INDICATELisa Aichholz RAIL SPECIALIST Work Phone: Start: 17-69-9635GQV CBC WITH AUTO DIFFLisa Aichholz RAIL SPECIALIST Work Phone: Start: 56-41-8887PU videography Hypopharynx and Esophagus Views for swallowing function W speech and W barium contrast Dorian Day MD Work Phone: Start: 65-06-6481Lwezdiv ultrasonography of bilateral carotid arteriesMD Shaikh Day Work Phone: Start: 50-43-9983Yniiw cultureMD Shaikh Day Work Phone: Start: 32-69-0779Oftxjha ultrasonography of bilateral carotid arteriesMD Shaikh Reeveswad Work Phone: Start: 36-33-8094Alzfr depression screening assessment Марина Mary Ellentart: 58-81-2998Rnhpuej echo study ProcedureGeneric External Data ProviderStart: 83-15-2015DO of head without contrastMD Shaikh Day Work Phone: Start: 55-50-3415Asbyg chest X-rayMD Shaikh Day Work Phone: Start: 49-53-9908Dpmmyqkeun of Upper Intestinal Tract, Via Natural or Artificial Opening EndoscopicMELINDA TUCKERStart: 10-16-2021 Transfusion of Nonautologous Red Blood Cells into Peripheral Vein, Percutaneous ApproachMELINDA SAGE MEMORIAL HOSPITALERStart: 56-60-5065Qxkisnd ultrasonography of bilateral carotid arteriesMD Shaikh Barb Work Phone: Start: 21-15-8882Ujuoa X-ray of right handMD Shaikh Barb Work Phone: Start: 54-37-8789Bxgdx X-ray of right handMD Shaikh Barb Work Phone: Start: 05-12-2021 End: 26-22-6540FcxekhwufxuOzsn [facility] Networkbharati RAIL SPECIALIST Work Phone: Arthroplasty of kneeAurora Orzech Blood culture for bacteria, including anaerobic screen MD Shaikh Day Work Phone: Breast surgery (qualifier value)Carmen Orzech Bypass of stomachAurora Orzech HysterectomyAurora Orzech [phone]-AeU-2, Influenza & RSV (PCR)MD Shaikh Day Work Phone: Urine cultureMD Shaikh Barb Work Phone: Plan of Treatment DateCare ActivityDetailAuthorStart: 06-35-1705Slsbhbrix for malignant neoplasm of colonNOMS HealthcareStart: 81-23-3038AHqF,Tdap and Td Vaccines (2 - Tdap) DTaP,Tdap and Td Vaccines (2 - Tdap)[facility] SystemStart: 02-01-2025 ambulatoryAmbulatoryFacility:SIRI GallegosyStart: 97-32-1699Ehhcfltgh vaccination Influenza Vaccine (#1)[facility] HealthcareComment on above:Postponed from 10/13/2023 (Patient Does Not Have Time)Start: 11-12-2024 End: 91-47-9902Igutghd encounter worvhgird75/02/2025 9:40 AM EDT Office Visit [facility] [address] [place] [id number] Cindy Collado, SANDRA [address] [place] [phone] [facility] FMStart: 30-87-6573Pqfsszoln vaccinationInfluenza Vaccine (#1)[facility] HealthcareStart: 08-13-2024 End: 53-80-8531Eojwvrs encounter hzeltpghg11/03/2025 2:40 PM EDT Office Visit JAIME MANJARREZ [phone] [place] [phone] Jameson Mcleod NP [address] [place] [address] JAIME SHILPAYStart: 08-11-2024 End: 87-71-5617Lbgbzsg encounter ogmnpqirh19/01/2025 9:00 AM EDT Office Visit [facility] [address] [place] [phone] Cindy Collado, RAIL SPECIALIST [address] [place] [phone] [facility] FMStart: 07-15-2024 End: 10-25-1398Zzwncwc encounter rgzuyfcaq96/04/2025 10:20 AM EDT [facility] [place] [address] Jameson Mcleod, SANDRA [address] [place] [address] JAIME GALLEGOSYStart: 86-06-9923Nqlen BMI ScreeningAdult BMI ScreeningNovant Health Presbyterian Medical Centertart: 01-70-7955Mcokaqq ScreeningTobacco ScreeningOhioHealth [facility] Start: 06-30-2024 End: 51-55-5168Xrbylfj encounter twwycbede42/20/2025 9:00 AM EDT [facility] [place] [address] aAMISHA GALLEGOSYStart: 06-15-2024 End: 22-51-9632Ntsrzep encounter wothrbprz13/05/2025 10:30 AM EDT Office Visit [facility] [place] [address] [place] [phone] Chaim Hare, PhD [address] [place] [address] JAIME GALLEGOSYStart: 06-07-2024 End: 24-35-4532Ecfxenfqk (Vitamin B12) [Mass/volume] in Serum or PlasmaVitamin B12 Lab Routine Ataxia Expressive aphasia Memory difficulty Expected: 06/07/2024 (Approximate), Expires: 06/01/2025[facility] Work Phone: comment on above:Expected: 06/07/2024 (Approximate), Expires: 06/01/2025Start: 06-07-2024 End: 49-38-1704WQ Brain WO and W contrast IVMR brain w and wo contrast routine Imaging Routine Ataxia Gait instability Expressive aphasia Memory difficulty History of ischemic stroke Expected: 06/07/2024 (Approximate), Expires: 06/07/2025[facility] CenterComment on above:Expected: 06/07/2024 (Approximate), Expires: 06/07/2025Start: 06-07-2024 End: 58-80-6305AK Cervical spine WO and W contrast IVMR cervical spine w and wo contrast Imaging Routine Ataxia Gait instability Expected: 06/07/2024 (Ap proximate), Expires: 06/07/2025[facility] HealthcareComment on above:Expected: 06/07/2024 (Approximate), Expires: 06/07/2025Start: 06-07-2024 End: 32-44-3545Hmjpkrrcohh [Units/volume] in Serum or PlasmaTSH Lab Routine Ataxia Expressive aphasia Memory difficulty Expected: 06/07/2024 (Approximate), Expires: 06/07/2025[facility] HealthcareComment on above:Expected: 06/07/2024 (Approximate), Expires: 06/07/2025Start: 2024 End: 96-66-5778Wyaggkd encounter nqskkveet80/23/2025 10:30 AM EDT Office Visit [facility] [address] [place] [address] Cindy Collado, RAIL SPECIALIST [address] [place] [address] ArrivedKERN VALLEY FMComment on above:ArrivedStart: 06-02-2024 Medicare Annual Wellness (AWV)Medicare Annual Wellness (AWV)[facility] Start: 06-01-2024 End: 28-54-5265Lrdtxfc encounter procedureANA BELLEVUEComment on above:Arrived Start: 05-12-2024 End: 69-52-2467Hogez metabolic 1998 panel - Serum or PlasmaBasic metabolic panel Lab Routine Primary hypertension (CMS/HCC) Expected: 05/12/2024 (Approximate), Expires: 05/12/2025[facility] HealthcareComment on above:Expected: 05/12/2024 (Approximate), Expires: 05/12/2025Start: 05-12-2024 End: 26-06-6920VAD W Auto Differential panel - BloodCBC and differential Lab Routine Cerebrovascular accident (CVA), unspecified mechanism (CMS/HCC) Exp ected: 05/12/2024 (Approximate), Expires: 05/12/2025[facility] Healthcare Work Phone: Comment on above:Expected: 05/12/2024 (Approximate), Expires: 05/12/2025Start: 63-56-7604Cxfam BMI ScreeningAdult BMI Screening [facility] SystemStart: 58-17-2543Nacwaellep ScreeningDepression Screening [facility] SystemStart: 95-27-8698Utxnndu ScreeningTobacco Screening [facility] SystemStart: 02-47-3975Znvab brachial pressure indexParkview Healthtart: 02-03-2024 End: 96-54-3983Nanewql encounter /23/2024 9:20 AM EST Office Visit [facility] [address] [place] [address] Jameson Mcleod NP [address] [place] [address], [place] [address] [facility] NEUROLOGYStart: 01-21-2024 End: 28-43-1715Lzcnlwpu identified in Urine by CultureUrine culture (clean catch) Microbiology Routine UTI symptoms Expected: 01/21/2024 (Approximate), Ex giovanny: 01/20/2025[facility] Healthcare Work Phone: Comment on above:Expected: 01/21/2024 (Approximate), Expires: 01/20/2025Start: 01-21-2024 End: 67-39-6943SLRHMEG TRACT INFECTION (HTRX)URINARY TRACT INFECTION (HTRX) Lab Routine UTI symptoms Expected: 01/21/2024 (Approximate), Expires: 01/20/2025[facility] HealthcareComment on above:Expected: 01/21/2024 (Approximate), Expires: 01/20/2025Start: 01-21-2024 End: 46-10-7825Bernspv encounter dpopmswwj37/10/2024 9:40 AM EST Office Visit [facility] [address] [place] [address] Cindy Collado NP [address] [place] [address] OLGA YEPEZ FMStart: 01-14-2024 End: 12-21-8433Bnkzdfu encounter rcnozwwco89/03/2024 11:00 AM EST Office Visit [facility] [address] [place] [phone] Martin Arita MD [address] [place] [address], [address], [address], [address] [place] [phone] (Work) [facility] Start: 12-24-2023 End: 47-27-2067Ismhfgv encounter ymwwqkwwj76/12/2024 9:15 AM EST Office Visit [facility] [address] [place] [phone] Aime Clark, DO [address] [place] [place] [address] [facility] GALLEGOSYStart: 12-09-2023 End: 61-95-8999Qjicx tzvswciqycj05/28/2024 Abstract [facility] [address] [place] [address] Nakul Zazueta, [address] [place] [address] [facility] NEUROLOGYStart: 12-09-2023 End: 98-82-1416Uphvuqk encounter ybmgyumjx34/28/2024 9:00 AM EDT Office Visit [facility] [address] [phone] Nakul Zazueta, DO [address] [place] [address] NOM[facility] NEUROLOGYStart: 12-02-2023 End: 58-14-3788LA Esophagus Views W barium contrast POFL esophagus barium swallow Imaging Routine Oropharyngeal dysphagia Expected: 12/02/2023 (Approximat e), Expires: 12/01/2024[facility] HealthcareComment on above:Expected: 12/02/2023 (Approximate), Expires: 12/01/2024Start: 12-02-2023 End: 23-91-6390NQ Pharynx and Cervical esophagus Views W barium contrast POFL esophagus pharynx Imaging Routine Oropharyngeal dysphagia Expected: 12/02/2023 (Approximate), Expires: 12/01/2024[facility] Work Phone: comment on above:Expected: 12/02/2023 (Approximate), Expires: 12/01/2024Start: 12-02-2023 End: 86-88-8921Smzgxmx encounter procedureNOMS ENT SANDUSKYComment on above: Oropharyngeal dysphagiaStart: 10-30-2023 End: 54-78-9262Nhgleqye identified in Urine by CultureUrine culture (clean catch) Microbiology Routine Urinary tract infection symptoms Expected: 10/30/19 24 (Approximate), Expires: 10/29/2024[facility] Work Phone: Comment on above:Expected: 10/30/2023 (Approximate), Expires: 10/29/2024Start: 10-30-2023 End: 78-15-1723Sebjrutuze complete panel - UrineUrinalysis with reflex microscopic (clean catch) Lab Routine Urinary tract infection symptoms Expected: 10/30/2023 (Approximate), Expires: 10/29/2024[facility] HealthcareComment on above: Expected: 10/30/2023 (Approximate), Expires: 10/29/2024Start: 10-22-2023 End: 32-96-4628Uumbihm, urine, randomAlbumin, urine, random Lab Routine Primary hypertension (CMS/HCC) Expected: 10/22/2023 (Approximate), Expires: 10/21/2024 [facility] HealthcareComment on above:Expected: 10/22/2023 (Approximate), Expires: 10/21/2024Start: 10-22-2023 End: 33-19-0569VYR W Auto Differential panel - BloodCBC and differential Lab Routine Cerebrovascular accident (CVA), unspecified mechanism (CMS/HCC) Ath erosclerosis of coronary artery of algaaciq heart, unspecified vessel or lesion type, unspecified whether angina present (CMS/HCC) Expected: 10/22/2023 (Approximate), Expires: 10/21/2024 Healthcare Work Phone: Comment on above:Expected: 10/22/2023 (Approximate), Expires: 10/21/2024Start: 10-22-2023 End: 54-43-0950Pzwkgrhzbdcby metabolic 2000 panel - Serum or PlasmaComprehensive metabolic panel Lab Routine Primary hypertension (CMS/HCC) Mixed hyperlipidemia (CMS/HCC) Expected: 10/22/2023 (Approximate), Expires: 10/21/2024IA HealthcareComment on above:Expected: 10/22/2023 (Approximate), Expires: 10/21/2024Start: 10-22-2023 End: 53-79-4923Yupaw 1996 panel - Serum or PlasmaLipid panel Lab Routine Cerebrovascular accident (CVA), unspecified mechanism (CMS/HCC) Atherosclerosis of coronary artery of algaaciq heart, unspecified vessel or lesion type, unspecified whether angina present (CMS/HCC) Mixed hyperlipidemia (CMS/HCC) Expected: 10/22/2023 (Approximate), Expires: 10/21/2024IA HealthcareComment on above:Expected: 10/22/2023 (Approximate), Expires: 10/21/2024Start: 10-22-2023 End: 79-12-7819Xwykorriee complete panel - UrineUrinalysis with reflex microscopic (clean catch) Lab Routine Primary hypertension (CMS/HCC) Expected: 10/22/2023 (Approximate), Expires: 10/21/2024[facility] HealthcareComment on above: Expected: 10/22/2023 (Approximate), Expires: 10/21/2024Start: 10-22-2023 End: 19-83-3820Tecihyg encounter procedureNOMS CWM FMComment on above:Arrived Start: 99-43-8386Dpsldwkpn vaccinationNOMS HealthcareStart: 10-84-0504Ihkkdbo referralPromedica Bay Park Hospital Work Phone: Start: 96-57-8357Xkknvsg ultrasonography of bilateral carotid arteriesUS carotid doppler BIFirelands Regional Medical CenterStart: 07-02-2023 End: 19-50-0995Tqocoya encounter /21/2024 9:00 AM EDT Office Visit [facility] [place] [phone] Martin Arita MD [address] [place] [address], [address], [address], [address] [place] [address] [facility]rologyStart: 2023 End: 62-28-3650Ujwpnok encounter nifiecwtf34/22/2024 6:30 PM EDT Office Visit [facility] [address] [place] [address] Shaikh Day MD [address] [place] [address] [facility] IMStart: 02-04-2363Amomdkar identified in Urine by CultureParkview Healthtart: 20-44-0346ThpznpnpeParkview Healthtart: 84-47-7820Dvwsfsvj admissionParkview Healthtart: 93-74-1067Tommpncx Embolic Filtration, Extracorporeal Flow Reversal Circuit from Right Common Carotid Artery,Percutaneous Approach, [employer] 6Cerebral Embolic Filtration, Extracorporeal Flow Reversal Circuit from Right Common Carotid Artery,Percutaneous Approach, [employer] 6 [facility]althtart: 64-61-7542Mgzsuroq of Right Internal Carotid Artery with Intraluminal Device, Open ApproachDilation of Right Internal Carotid Artery with Intraluminal Device, Open ApproachParkview Healthtart: 03-12-2023 End: 58-77-5004Qgduxbm encounter wtbwmxfoo39/30/2024 10:00 AM EST Office Visit [facility] [address] [place] [phone] Alan Elmore MD [address] [place] [address], [address], [address], [address] [place], [place] [phone] [facility] NeurologyStart: 92-31-7434YAYFF-19 Vaccine ( season)COVID-19 Vaccine ( season)[facility] SystemStart: 07-95-6313Dtwttmhg identified in Urine by CultureUrine CultureParkview Healthtart: 11-22-2021 Comprehensive metabolic 2000 panel - Serum or PlasmaParkview Healthtart: 04-03-3525Vuzgcatqh measurementSouthwest General Health Center Start: 11-22-2021 End: 04-45-9823VxicfqgwyParkview Healthtart: 26-84-6215Ssptgqz referral to dietitianParkview Healthtart: 75-44-3171Yiaiwdcb to cardiologistParkview Healthtart: 41-38-3433Wlagpwat admissionParkview Healthtart: 26-39-5086Famniwtt therapy procedureParkview Healthtart: 92-35-6271Cpdqfwrn to occupational therapistParkview Healthtart: 11-21-2021 [facility]htart: 31-11-0536Bqpfgta ultrasonography of bilateral carotid arteriesUS carotid doppler [facility] Start: 66-59-8254NH.doppler Carotid arteries - bilateralPromedica Bay Park Hospital Work Phone: Start: 31-64-8141Quzo Risk ScreeningFall Risk ScreeningOhioHealth [facility] SystemStart: 17-18-5755Ecwtpmagxbprvd of varicella zoster vaccineZoster (Shingles) Vaccine (1 of 2)[facility] SystemStart: 18-17-6666Ymuyjcvgs for malignant neoplasm of breastMammogramNOIA Healthcare Start: 56-11-3123Wycan BMI Follow Up PlanAdult BMI Follow Up PlanOhioHealth Arthur G.H. [facility], [facility], Cancer Center SystemStart: 51-72-7017Zkrws BMI ScreeningAdult BMI ScreeningOhioHealth Arthur [facility] SystemStart: 29-31-1982Yxofmpgxlm ScreeningDepression ScreeningOhioHealth [facility] SystemStart: 32-73-2710Zuwxswa ScreeningTobacco ScreeningOhioHealth [facility] SystemStart: 04-23-1949Medicare Annual Wellness (AWV)Medicare Annual Wellness (AWV)[facility] HealthcareStart: 04-23-1949Medicare Annual Wellness VisitMedicare Annual Wellness VisitNovant Health Presbyterian Medical Centertart: 45-43-4986Jpvskmqmt for malignant neoplasm of colonNOMS HealthcareAnkle brachial pressure indexSouthwest General Health CenterBacteria identified in Blood by CultureSouthwest General Health CenterBacteria identified in Urine by CultureSouthwest General Health CenterBlood culture for bacteria, including anaerobic screenBlood CultureSouthwest General Health CenterPatient EducationSelect Medical Specialty [facility] Work Phone: Patient referralSelect Medical Specialty Hospital [facility] Work Phone: Urine cultureUrine Wilson Memorial HospitalUS.doppler Carotid arteries - [facility] US.doppler Carotid arteries - [facility] US.doppler Carotid arteries - [facility] Immunizations Immunization DateImmunizationNotesCare AyztzzfbFkfwrxau22-81-5967vrpupscdg virus vaccine, unspecified formulationAurora Orzech [facility] Centery09-28-2024Seasonal trivalent influenza vaccine, adjuvanted, preservative freeCindy Collado RAIL SPECIALIST Work Phone: [facility] Cancer CenterUazwhnigza57-60-4781gfjlkajls virus vaccine, unspecified formulationBenjamin Murelvirak DO Work Phone: [facility] Kxefuotw81-97-2214hgxznfzsi virus vaccine, unspecified formulationAurora Orzech [facility] Centery10-14-2023Influenza, Seasonal, Quadrivalent, AdjuvantedSrudy Day MD Work Phone: [facility] Cancer CenterQbyodcprdq78-63-0612Piclbitwzpjr Conjugate PCV 20 Shaikh Barb VIDES Work Phone: [facility] Cancer CenterDwltcakumz94-00-4515VUS vaccine preF3, recombinantAurora Orzech [facility] [place] 569620-14-2023RSV, recombinant, protein subunit RSVpreF, adjuvant reconstitu, 120mcg/0.5mL, PF (Arexvy)Shaikh Barb VIDES Work Phone: [facility] CenterJdpoqnnyes52-19-2128vhoysllse virus vaccine, unspecified formulationAurora Orzech [facility] [place] 569622-10-2022Influenza, Seasonal, Quadrivalent, AdjuvantLoren Day MD Work Phone: [facility] CenterZpqhvigvbn42-04-7759ytrirogyq virus vaccine, unspecified formulationAurora Orzech [facility] [place] 569620-16-2021Influenza, Seasonal, Quadrivalent, AdjuvantedSrudy Day MD Work Phone: [facility] CenterKqighiowyf87-75-9820houfjnjbpk, tetanus toxoids and pertussis vaccineSrudy Day MD Work Phone: [facility] CenterJnbzhltjdu09-81-9027ILVZZ-19 Ad26.COV2.S (Clarence)MD Shaikh Day Work Phone: [facility]10-28-2020influenza virus vaccine, unspecified formulationAurora Orzech [facility] [place] 569620-28-2020Influenza, High-dose Seasonal, Quadrivalent, Preservative Free Shaikh Barb VIDES Work Phone: [facility] CenterPqkixrlczu73-36-3935uivyymsyq virus vaccine, unspecified formulationAurora Orzech [facility] [place] 569621-11-2019influenza, high dose seasonal, preservative-freeShaikh Barb VIDES Work Phone: noTwo Rivers Psychiatric HospitalKitgjmbjww12-20-9426htjvv emtkoyovw-J3W9-93, preservative-free, injectableShaikh Barb VIDES Work Phone: [facility] CenterDupkjxgzrm87-86-6745clziodels virus vaccine, unspecified formulationJENNIFER CORRIE [facility]02-12-2002influenza, seasonal, injectableLisa Heaven FLORES Work Phone: noTwo Rivers Psychiatric HospitalCzjvpytclj88-68-7772Kk(adult) unspecified formulationJENNIFER CORRIE [facility]02-12-2002tetanus and diphtheria toxoids, not adsorbed, for adult use Cindy Heaven RAIL SPECIALIST Work Phone: [facility] Payers DatePayer CategoryPayerPolicy [id number] [id number] (Managed Care)[employer] [id number] 2019Medicare [id number] 2.16.840.4.802531.22685731-76-9677Dqft-pay [id number] 2.16.840.1.621188.3.579.2.36386-60-6051Ekcuvya0200122 2.16.840.1.753243.3.57[id number] 2.16.840.1.592019.3.579.2.84200-18-2589Jnwjjst4244091 2.16.840.1.920078.3.579.2.49369-14-7033Jdabcsk8806873 2.16.840.1.396965.3.579.2.45619-56-2903Adhzuci3850309 2.16.840.1.922145.3.579.2.58774-19-2512Fkjjruh7015565 2.16.840.1.870159.3.579.2.68483-97-8434Iqacowd3531600 2.16.840.1.431804.3.579.2.24579-99-0714Qcffbzl4745915 2.16.840.1.171352.3.579.2.18020-49-9721Higbijy8302289 2.16.840.1.728779.3.579.2.53070-30-4930Xjwcdjm1291401 2.16.840.1.681860.3.579.2.87496-96-4559Mthsiqx4641170 2.16.840.1.024586.3.579.2.11961-01-1407Utpkmom0538786 2.16.840.1.147568.3.579.2.52890-08-2930Qonyjei0706650 2.16.840.1.591068.3.579.2.53456-10-8306Opgdvcw4126421 2.16840.1.820115.3.579.2.67303-83-2440Bkbbblr3222968 2.16840.1.586745.3.579.2.35794-35-7466Aneafvs4161020 2.16840.1.227878.3.579.2.86428-22-3766Jbfkaso4667881 2.16840.1.894592.3.579.2.50500-25-0940Nyiflol6827856 2.840.1.374828.3.579.2.40734-67-4366Iworpzw94271765 2.840.1.317126.3.579.2.278904-74-1711Hwrzahy58188585 2.840.1.607840.3.579.2.192851-69-1331Hkcgmwb61839042 2.840.1.156044.3.579.2.002721-27-2822Wuczfev41238020 2.840.1.731004.3.579.2.746496-40-5637Urekxck45354124 2.840.1.164719.3.579.2.271327-31-2902Klruncd13722086 2.840.1.291475.3.579.2.331828-80-1784Bsvbiag69231738 2.840.1.895394.3.579.2.876098-14-5644Qyzhcet94741403 2.840.1.006252.3.579.2.103643-35-5223Kzxkcsw50594555 2.840.1.874473.3.579.2.562067-62-2091Cznaamn55335706 2.16840.1.742173.3.579.2.853302-22-3588Zefmxob13413562 2.16840.1.487522.3.579.2.352639-36-6930Mzdacyl76472960 2.16840.1.278530.3.579.2.849267-84-0491Yhpusmm95849520 2.16840.1.744349.3.579.2.395955-48-0362Oymikgr1847444 2.840.1.065686.3.579.2.243257-28-6431Mhfgasu75148784 2.16840.1.663495.3.579.2.24769-62-7958Hclucnm48933501 2.840.1.493486.3.579.2.83390-26-1198Vmkcdti77448605 2.840.1.822913.3.579.2.16356-54-3298Rwqpgno20569455 2.840.1.978786.3.579.2.45473-57-7140Xslejzm78444180 2.840.1.032214.3.579.2.87086-61-9291Bhjezum41712059 2.840.1.932375.3.579.2.04860-43-5760Yyickni68239115 2.16840.1.633735.3.579.2.41227-05-3794Upwksgr28582749 2.16840.1.210681.3.579.2.03437-81-1450Cdlxgce29637707 2.16840.1.994684.3.579.2.07029-11-5344Xhugzxu80501006 2.16.840.1.691437.3.579.2.66037-57-5154Cscsgro45204062 2.16.840.1.617488.3.579.2.10034-76-7885Ouwmagd06878869 2.16.840.1.746357.3.579.2.61141-54-5190Xpbyswn46186707 2.16.840.1.831653.3.579.2.07422-55-2524Sfeplpm06530374 2.16840.1.837633.3.579.2.54269-45-3999Btjmhje68407918 2.16840.1.737606.3.579.2.28547-61-8753Fttgfdv39853065 2.16840.1.199279.3.579.2.74079-81-9986Jpahxga79208516 2.16840.1.099653.3.579.2.69110-30-3314Kctsahs46986088 2.16840.1.458421.3.579.2.41695-25-7283Hzfiwkd10770213 2.16840.1.617611.3.579.2.930895-47-3099Cfituip9022161 2.16840.1.790279.3.579.2.471090-49-8262Xuqaopk7304415 2.16840.1.963838.3.579.2.486042-80-5570Ddxcamd1214869 2.16840.1.945771.3.579.2.814833-64-4434Nrsavna1041574 2.16840.1.973190.3.579.2.925570-76-0191Qhmkrvf1195650 2.16840.1.697205.3.579.2.893897-64-2594Pbnjdor7628993 2.16840.1.950952.3.579.2.441778-81-7143Afmlswh1220418 2.16840.1.591317.3.579.2.754721-99-7614Yzszdoh5757462 2.16840.1.550156.3.579.2.141666-92-6848Bxfdldk0810457 2.16840.1.352207.3.579.2.403441-19-7794Mmiavgl0409317 2.840.1.116846.3.579.2.053656-01-6305Kynxbvw9590627 2.840.1.718666.3.579.2.954590-66-2354Rwoovvo03120126 2.840.1.994899.3.579.2.43083-46-7686Lxezpvh30076396 2.16840.1.845921.3.579.2.23348-56-3608Gllyrri86335618 2.840.1.153012.3.579.2.21686-16-7332Agxzlln14209623 2.840.1.727893.3.579.2.13048-47-0262Zvwhrkc33005416 2.840.1.448364.3.579.2.51868-00-5788Ilbwuyq42286462 2.16840.1.109828.3.579.2.14399-84-6328Gvrykyx13571648 2.16840.1.560186.3.579.2.81728-71-3280Tnstvex85400284 2.16.840.1.676110.3.579.2.93776-83-6600Kmflehs10322282 2.16.840.1.307312.3.57[id number] 2.16.840.1.611724.3.57[id number] 2.16.840.1.709571.3.5[id number] 2.16.840.1.3[id number] 2.16.840.1.948888.3.579.2.531 Social History DateTypeDetailFacilityStart: 03-06-2023 End: 30-67-7396[facility]-2021 End: 45-85-9182Fhnsatu smoking status NHISEx-smoker (finding)[facility]: 85-59-7536[facility]23 End: 99-80-9493Xbamhjb smoking statusNever smoked tobacco (finding)[facility]kyHistory of tobacco useCurrent smokerNOMS HealthcareHistory of tobacco useCigarette SmokerNOMS HealthcareStart: 02-20-2023 End: 32-93-9971Gjkaxnh use and exposureSmokeless tobacco non-userNOMS Healthcare Start: 02-25-2023 End: 31-22-3283Dmelwjh intakeLifetime non-drinker (finding)[facility] HealthcareStart: 03-06-2023 End: 05-08-8210Mqkujjg of Social functionNOIA HealthcareStart: 01-28-3563Wur Assigned At BirthNot on fileNOIA HealthcareStart: 49-87-9355Xxnffdl smoking statusNeverExecutive [facility]uskyHistory of tobacco usePassive smokerNOMS HealthcareDo you belong to any clubs or organizations such as buddhism groups, unions, fraternal or athletic groups, or school groups?NoNOMS HealthcareAre you now , , , , never [...] before (I/we) got money to buy more.Never trueNOIA HealthcareStart: 02-20-2024 End: 98-25-4870ZbxQifmmc (finding)[facility] CenterDo you feel stress - tense, restless, nervous, or anxious, or unable to sleep at night because yourmind is troubled all the time - these days [OSQ]Not at allNOIA HealthcareStart: 08-25-2018 End: 32-13-6664Tbosddnyl beverage intakeCurrent non-drinker of alcohol (finding) [facility] SystemSexual OrientationSumma Health Barberton Campus How often do you need to have someone help you when you read instructions, pamphlets, or other written material from your doctor or pharmacy [SILS]SometimesNOMS Healthcare Medical Equipment Procedure CodeEquipment CodeEquipment Original TextEquipment IdentifierDates Transcarotid artery revascularization (TCAR)Bare-metal carotid artery stent ()[id number] FDAStart: 64-66-0098BNXM, fracture, wristOrthopaedic fixation plate, non-bioabsorbable, sterile()[id number] FDAStart: 46-44-2651KIUY, fracture, wristOrthopaedic bone screw, non- bioabsorbable, non-sterile()[id number] FDAStart: 75-48-2840PPJO, fracture, wristOrthopaedic bone screw, non-bioabsorbable, non-sterile()[id number] FDAStart: 18-28-5625ONTL, fracture, wristOrthopaedic bone screw, non- bioabsorbable, non-sterile()[id number] FDAStart: 55-15-0342VFQV, fracture, wristOrthopaedic bone screw, non-bioabsorbable, non-sterile()[id number] FDAStart: 36-76-4432Aovyzspfmxiyhr, carotidCardiovascular patch, animal-derived ()[id number] FDAStart: 77-68-6982Nnm Crd Rvl Linq Rpl [id number] - [id number] - [id number]_xgiIrqrp: 04-08-2018 Goals DatePatient GoalDesired Activity/StatePersonal health goalComment on above: Evaluation of progress towards goal: return home with self care and family supportPersonal health goalComment on above: Evaluation of progress towards goal: Return home with self care and family support and resume outpatient therapy. Functional Status AvjjGvaimnqbumNhxulgPlobksvs99-56-1199Tpbhiwyeqw StatusN/AExec[facility]rology [facility]-19-2025Functional StatusN/A[facility] [place] [id number] score [AUDIT-C]0 01/27/2024 9:54 AM Milton Haines MANOMS Rhsphpfpmb35-93-7567Ghrhjfn Health Questionnaire 2 item (PHQ-2) [Reported][facility] Cancer CenterGepgurmjsm95-74-5073Ffcnmerner StatusN/AExecutive Urology [facility]2024 Functional StatusN/AExec[facility] [id number] statusPatient at BaselineMary [facility] Hospital Work Phone: [phone]bwhvgla StatusN/AExec[facility]01-24-2024Patient Health Questionnaire 2 item (PHQ-2) [Reported][facility] Cancer CenterKpwcpvemni69-85-7549Qpumvxuctt statusPatient at BaselinePromedica [facility] Work Phone: [phone]) [phone]cb statusPatient Not at Baseline [facility] Work Phone: [facility] Mental Status OqzzByrdgnsjhzZwdcpgFkfkswxu55-20-9169Iauyogunb functionCognitive Status Patient at BaselineMary [facility] Work Phone: 1([phone]) [phone]xphjpyil functionCognitive Status Patient at BaselineProm[facility] Work Phone: [phone]gwpocivg functionCognitive Status Patient Not at BaselinePromedica [facility] Work Phone: Clinical Notes 11-10-2020 to 11-26-2024 Note Date & XzssQjjqXgiwskun78-00-2928 Evaluation note* Diagnosis Onset Date Resolution Status Admit Date Dizziness and giddiness acuteOctober 2024 9:05amEpisode of recurrent major depressive disorder acuteOctober 2024 9:05amEssential hypertensionacuteOctober 2024 9:05amGAD (generalized anxiety disorder)acuteOctober 2024 9:05amMigraine with aura and without status migrainosus, not intractableacuteOctober 2024 9:05amAtaxiachronicOctober 2024 11:35amGait instabilitychronicOctober 2024 11:35amIschemic strokechronProMedica [facility] Regional Hospitalober 2024 11:35amAphasiadeleted December 03, 2024 11:35am [facility] Work Phone: [phone] 548-155608-28-2025 Hospital Discharge instructions Patient Education 10/08/2024 09:45:11 [...] (electrical nerve stimulation). ?For women, using a center medical and lab director to prevent urine leaks. This is a [...] right after experiencing incontinence. General instructions Take rcxo-xaw-ruapagt and prescription medicines only as told by [...] important. Where to find more information National [place] of Diabetes and Digestive and Kidney Diseases: www.niddk.nih.gov [place] [employer]: www.urologyhealth.org Contact a health care [...] provider. Document Revised: 09/02/2020 Document Reviewed: 09/02/2020 [employer] Patient Education 2023 [employer] 10/08/2024 09:45:10 Urinary Tract Infection, Adult Urinary [...] Treatment for this condition includes: Antibiotic medicine. Vihu-dzw-jabqlys medicines to treat discomfort. Drinking enough water [...] Follow these instructions at home: Medicines Take yupr-rci-rkddpyp and prescription medicines only as told by [...] provider. Document Revised: 09/04/2020 Document Reviewed: 09/09/2020 [employer] Patient Education 2023 [employer] Follow Up Care 09/09/2024 14:35:59 With:MITRA Quintero APRN, JAYESH Whaley, URL Address: When: Unknown Comments:4 mos [facility] [place] 08-28-2025 NotePatient Education Obstetrics and [...] this condition includes: ??? Antibiotic medicine. ??? Ulai-vmk-ghoibkw medicines to treat discomfort. ??? Drinking enough [...] these instructions at home: Medicines ??? Take rspn-fcd-zvhktmc and prescription medicines only as told by [...] Make sure you di (more content not included)...[facility]08-12-2025 NotePatient Education Custom Cystoscopy with Botox injection [...] if you have a fever over 100 degrees.[facility] 09-22-2024 NoteHistory and Physical Patient: OZZIE GIFFORD Age: 74 years Sex: Female : 1950 Associated Diagnoses: None Author: VASQUEZ VIDES, Alexandr Isaac Preoperative Information Indication for surgery: Urge Incontinence. [...] = 1 tab(s), Oral, Daily Potassium Chloride (Uun-Enpr-Rde M10) 10 mEq oral tablet, extended release quetiapine 50 mg oral tablet rosuvastatin 20 mg Tab topiramate 50 mg Tab trospium 60 mg oral capsule, extended release 60 mg = 1 cap(s), Oral, qAM vibegron 75 mg oral tablet 75 mg = 1 tab(s), Oral, Daily Vitamin C See Instructions Problem list: All Problems Stroke / SNOMED CT 444403484 / Confirmed Headache / SNOMED CT 97633577 / Confirmed Hypertension / SNOMED CT 1655612080 / Confirmed Dysuria / SNOMED CT 84740002 / Confirmed Incontinence without sensory awareness / SNOMED CT 4980824581 / Confirmed White matter disease / SNOMED CT 3188950214 / Confirmed UTI (urinary tract infection) / SNOMED CT 277835117 / Confirmed Recurrent UTI / SNOMED CT 455744031 / Confirmed ESBL (extended spectrum beta-lactamase) producing bacteria infection / SNOMED CT 9357302528 / Confirmed ESBL E coli urine Canceled: Mixed incontinence / SNOMED CT 60765282 Histories Family History: Primary malignant neoplasm of female breast Mother Primary malignant neoplasm of bone Father Primary malignant neoplasm of brain Mother Procedure history: Colonoscopy (procedure) (139018362) on 05/12/2021 at 70 Years. Knee replacement (276416003). Breast surgery (6134724681). Hysterectomy (887597309). Gastric bypass (5123912476). Social History Social & Psychosocial Habits Tobacco [...] Soft. Musculoskeletal Normal strength. Integumentary: Warm, Dry, [place]. Neurologic: Alert, Oriented. Psychiatric: Cooperative, Appropriate mood & affect. Impression and Plan Diagnosis Urge incontinence (DCH16-DJ N39.41, Working, Medical). Condition: Stable. Counseled: Patient, Regarding diagnosis, Regarding treatment.[facility] CampusComment on above:Result Comment: Electronically Signed By: VASQUEZ VIDES, Alexandr Banks.br\Date and Time Signed: 09/22/24 07:57 [id number] Hospital Discharge instructions Patient Education 08/18/2024 09:19:23 [...] to the nearest emergency room or call 1 Diet you may resume your normal diet. Activity you may resume your normal activities Call if you have a fever over 100 degrees Follow Up Care 07/20/2024 12:07:40 With:Alexandr OVALLE Address: [address] [place], [place] [address] Business (1) When: Unknown Comments:Office will call to schedule follow up [facility] 07-08-2025 NotePatient Education Custom Cystoscopy with Urethral [...] if you have a fever over 100 degreesFisher [facility] 08-13-2024 Evaluation note* Diagnosis Onset Date Resolution Status Admit Date Ataxia chronicJuly 2024 2:44pmGait instabilitychronicJuly 2024 2:44pmIschemic strokechronicJuly 2024 2:44pmPrimary progressive aphasiachronicJuly 2024 2:44pm [facility] Work Phone: 1(671) 893-143507-01-2025 History of Present illness Narrative* Cindy Collado [...] asa, amlodipine, metoprolol XL documented in this encounterAlvin J. Siteman Cancer CenterAoymfobkoh23-23-1116 NoteUT Cardiology [facility] Subjective Ozzie Gifford is a 74 [...] use: Yes Comment: occasional Drug use: Never HPI Ozzie is seen in follow-up. She [...] past year she was admitted to the [facility] in October 2022 and February 2023 due to TIA symptoms. She and her son tell me that she underwent redo right carotid surgery in 2023 at [facility]. Today she reports that she has [...] rub. No gallop. Pulmonary: (more content not included)...[facility] 07-16-2024 Hospital Discharge instructions Patient Education 07/16/2024 [...] your health care provider. General instructions Take ivja-hvp-jbnuxkf and prescription medicines only as told by [...] provider. Document Revised: 10/17/2020 Document Reviewed: 10/17/2020 [employer] Patient Education 2023 [employer]. Follow Up Care 07/03/2024 14:11:33 With:[facility] Address: When: Unknown Comments:For procedure as scheduled. [facility] 06-05-2025 NotePatient Education Obstetrics and Gynecology Overactive [...] health care provider. General instructions ??? Take gpoq-szp-glhwcne and prescription medicines only as told by [...] you drink, and whe (more content not included)...[facility]05-20-2025 History of Present illness Narrative* Chaim Hare, [...] No history of alcohol/substance abuse or smoking. [place] language Maltese. Competed high school education. 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 Has 2 [...] design 2-5th %ile. Motor/Speed of Processing: Right-handed. Assembly Operator strength 21st %ile with right- hand, 2nd [...] PSG/HST to assess and treat suspected underlying UDLCE MARIA. May benefit from speech therapy intervention [...] individual. Please contact me with anyquestions at [phone]. documented in this encounterAlvin J. Siteman Cancer CenterQncyevqljv38-82-9498 History of Present illness Narrative* Chaim Hare, [...] No history of alcohol/substance abuse or smoking. [place] language Maltese. Competed high school education. 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 Has 2 [...] Disturbance of skin sensation 12/02/2015 HTN (hypertension) ([facility]) Muscle spasm 12/02/2015 Myoclonus 12/02/2015 Obesity MEDICATIONS: [...] of this individual. Please contact me with Soundtracker at [phone]. documented in this encounterAlvin J. Siteman Cancer CenterYdzfebctmt12-02-5882 History of Present illness Narrative* Cindy Collado [...] 5/5- neuropsch assessment Waiting to hear from [facility] for MRI on brain 6/4-fu appt with jameson SANDOVAL * Cindy Collado NP - 2024 10:30 AM EDT Images from the original note were not included. Ozzie Gifford is a 74 y.o. female presents with chief complaint of Hypertension HPI: Headache pain Both ear pain- bleeding For about a week or so now More dizzy 5/5- neuropsch assessment Waiting to hear from TB for MRI on brain 6/4-fu appt with [...] not better fu in office Relevant Medications imjklfjn-kwcfvljtn-ommadpjyfcxrxj (Cortisporin) otic solution documented in this [facility]04-23-2025 Instructions* Patient Instructions* Cindy Collado NP - 2024 10:30 AM EDT Ear drops: 4 drops each ear three times daily for 10 days, if not better contact the office documented in this [facility]04-21-2025 History of Present illness Narrative* Jameson Mcleod [...] was previously diagnosed with, functional gait, in [place], [place]. She notices a tremor every once [...] wrist extensors , wrist flexor , and podiatry assistant strength 4+/5. LUE strength deltoid , biceps , triceps , wrist extensors , wrist flexor , and podiatry assistant strength 4+/5. RLE strength iliopsoas, quadriceps, tibialis [...] knee reflex 1+. Stephens's sign negative. Coordination: Wwobxr-pi-csyu testing bilateral dysmetria. Substantial truncal ataxia noted. Vjpv-ay-kqzd testing bilateral dysmetria. Rapid alternating movements mild bradykinesia in the bilateral upper extremities. Gait: Unsteady. Being assisted by her . Unable to tandem walk. Review and summary of old records: MOCA score at [facility] on 06/01/2024: with / recall. MRI of the brain without contrast [...] to a tertiary care center such as [facility] or [facility] neurology at follow upfor further evaluation and treatment of ataxia/gait instability pending results of work up. Of note, the patient was evaluated by [facility] neurology in June 2023 and diagnosed with [...] February 2023 and was evaluated at [facility] where she had a CT head, CTA [...] NP [facility] documented in this [facility]04-21-2025 Instructions* Patient Instructions* Jameson Mcleod NP - 06/01/2024 1:20 PM EDT - MRI of the brain and cervical spine ([facility]) - Check labs - Referral for neuropsychological evaluation documented in this encounterAlvin J. Siteman Cancer CenterBgtkktjagr60-84-9379 History of Present illness Narrative* LYNSEY LOZANO - 05/12/2024 1:40 PM EDT After the doxycycline hyclate 100mg she is to start the methenamine hippurate 1g tab. Is is also taking the vitamin c 500 daily D-mannose 500 1 daily Probiotics with cranberry 1 daily Had a BP of 156/74 at home * Cindy Collado, SANDRA - 05/12/2024 1:40 PM EDT Images from [...] Items Addressed This Visit Cerebrovascular accident (CVA) ([facility]) - Primary Continue w neurology Cont statin, asa and blood pressure meds Is receiving Home Health services Relevant Orders CBC and differential Primary hypertension ([facility]) Please check blood pressure daily and record [...] with home health CRYSTAL (generalized anxiety disorder) ([facility]) Has been on klonopin for some time OARRS reviewed * Cindy Collado NP - 05/12/2024 7:05 AM EDTAssociated Problem(s): Impaired mobility and activities of daily living Continue with home health * Cindy Collado NP - 05/12/2024 7:05 AM EDTAssociated Problem(s): CRYSTAL (generalized anxiety disorder) ([facility]/H[facility]) Has been on klonopin for some time OARRS reviewed * Cindy Collado NP - 05/12/2024 7:05 AM EDTAssociated Problem(s): Overflow incontinence of urine Continue with urology * Cindy Collado NP - 05/12/2024 7:05 AM EDTAssociated Problem(s): Primary hypertension ([facility]) Please check blood pressure daily and record [...] 7:04 AM EDTAssociated Problem(s): Cerebrovascular accident (CVA) ([facility]) Continue w neurology Cont statin, asa and blood pressure meds Is receiving Home Health services documented in this encounterAlvin J. Siteman Cancer CenterWnnfxlqzhb83-99-6717 Instructions* Patient Instructions* Cindy Collado NP - 05/12/2024 1:40 PM EDT Get labs checked No med dose changes Please do your exercises daily documented in this encounterNOMS [id number] Hospital Discharge instructions Patient Education 04/14/2024 13:55:52 [...] your health care provider. General instructions Take xycq-pjq-xjvzmfp and prescription medicines only as told by [...] provider. Document Revised: 10/17/2020 Document Reviewed: 10/17/2020 [employer] Patient Education 2023 [employer]. 04/14/2024 13:55:47 Urinary Tract Infection, Adult Urinary [...] Treatment for this condition includes: Antibiotic medicine. Wnzc-knr-aegptzz medicines to treat discomfort. Drinking enough water [...] Follow these instructions at home: Medicines Take hvlm-djc-xhgemmd and prescription medicines only as told by [...] provider. Document Revised: 09/04/2020 Document Reviewed: 09/09/2020 [employer] Patient Education 2023 [employer]. Follow Up Care 04/14/2024 10:07:35 With:CORRIE EDEN, BERNICE Carias, URL Address: [address] [place] [address]. [place] [address] When: Unknown Comments:F/U in 3 months [facility] 03-04-2025 NotePatient Education Obstetrics and Gynecology Overactive [...] health care provider. General instructions ??? Take veap-fta-xpzfhwe and prescription medicines only as told by [...] you drink, and whe (more content not included)...[facility]02-19-2025 Hospital Discharge instructions Patient Education 04/01/2024 10:30:58 [...] your health care provider. General instructions Take ddqs-xur-cbcnxat and prescription medicines only as told by [...] provider. Document Revised: 10/17/2020 Document Reviewed: 10/17/2020 [employer] Patient Education 2023 [employer]. Follow Up Care 01/29/2024 11:53:51 With:CORRIE EDEN, BERNICE Aretha, URL Address: [facility] [place] [address] When: Unknown [facility] [place] [id number] NotePatient Education Obstetrics and Gynecology Overactive Bladder, [...] health care provider. General instructions ??? Take zzvd-umi-lfzycoo and prescription medicines only as told by [...] you drink, and whe (more content not included)...[facility]01-15-2025 History of Present illness Narrative* Cindy Collado NP - 02/26/2024 4:06 PM EST amb documented in this encounterAlvin J. Siteman Cancer CenterEebtpdsezb46-98-9816 Evaluation note* Diagnosis Onset Date Resolution Status Admit Date Carotid stenosis acuteJanuary 2024 10:00amInternal carotid artery stent presentacuteJanuary 2024 10:00amLower extremity edemaacuteJanuary 2024 10:00amPAD (peripheral artery disease)acuteJanuary 2024 10:00am [facility] Work Phone: 1([phone]) 750-513412-18-2024 NoteUrology Office/Clinic Note HPI Staff Pt is [...] office today for recurrent UTIs by Cindy Braron NP. Pt currently be treatedfor UTI. UCx [...] yes avoids baths/hot tubs yes avoids scented [employer] products no urinates after sexual activity n/a [...] visit in more detail -Timed voids I, Kroi German PA-C, personally scribed for Bernice Clemente PA-C on 01/29/2024 12:42:57. . Documentation recorded by the scribaretha German accurately reflects the services(s) I performed and decisions made by me. Authenticated by Bernice Clemente PA-C on 01/29/2024 14:48:22. Follow-up With When Contact Information BERNICE CLEMENTE PA-C, URL [address] [place] [address] Additional Instructions: F/U 2-3 months [...] mg ER Tab, Oral, Daily Potassium Chloride (Als-Cpch-Uhy M10) 10 mEq oral tablet, extended release quetiapine 50 mg oral tablet rosuvastatin 20 mg Tab topiramate 50 mg Tab trospium 60 mg oral (more content not included)...[facility] Comment on above:Result Comment: Electronically Signed By: BERNICE CLEMENTE PA-C\.br\Date and Time Signed: 01/28/2414:48 EST\.br\Electronically Co-Signed By: Kori German PA-C\.br\Date and Time Co-Signed: 01/29/2412:49 [id number] Hospital Discharge instructions Patient Education 01/29/2024 12:46:53 [...] Treatment for this condition includes: Antibiotic medicine. Jpsg-uyt-ihxsadn medicines to treat discomfort. Drinking enough water [...] Follow these instructions at home: Medicines Take cwtm-xub-airdclj and prescription medicines only as told by [...] provider. Document Revised: 09/04/2020 Document Reviewed: 09/09/2020 [employer] Patient Education 2023 [employer] 01/29/2024 12:46:48 Urinary Incontinence Urinary Incontinence Urinary [...] (electrical nerve stimulation). ?For women, using a center medical and lab director to prevent urine leaks. This is a [...] right after experiencing incontinence. General instructions Take pzfo-lic-efxhhfn and prescription medicines only as told by [...] important. Where to find more information National [place] of Diabetes and Digestive and Kidney Diseases: www.niddk.nih.gov [place] [employer] Association: www.urologyhealth.org Contact a health care [...] provider. Document Revised: 09/02/2020 Document Reviewed: 09/02/2020 Elsevier Patient Education 2023 [employer]. Follow Up Care 01/28/2024 10:11:46 With:BERNICE CLEMENTE PA-C, URL Address: [address] [place] [address] When: Unknown Comments:F/U 2-3 months [facility] [place] [id number] NotePatient Education Obstetrics and Gynecology Urinary Tract [...] this condition includes: ??? Antibiotic medicine. ??? Fjbg-qzv-owhzrzd medicines to treat discomfort. ??? Drinking enough [...] these instructions at home: Medicines ??? Take jrqk-yto-vwtqxxg and prescription medicines only as told by [...] Make sure you di (more content not included)...[facility]12-12-2024 History of Present illness Narrative* Cindy Collado [...] 06/03/23: no culture, treated with bactrim by [facility] 02/20/23 ecoli documented in this encounterAlvin J. Siteman Cancer CenterLlmggkzjpo43-92-7301 History of Present illness Narrative* Cindy Collado [...] 10:42 AM ESTAssociated Problem(s): Cerebrovascular accident (CVA) ([facility]) Continue w neurology Cont statin, asa and [...] List Items Addressed This Visit Coronary atherosclerosis ([facility]) Continue with cardiology Is on statin, asa, b jimmy and amlodipine Check lipids yearly and prn dose changes Relevant Medications aspirin (Aspirin Adult Low Strength) 81 MG chewable tablet rosuvastatin (Crestor) 20 MG tablet Cerebrovascular accident (CVA) ([facility]) Continue w neurology Cont statin, asa and blood pressure meds Relevant Medications aspirin (Aspirin Adult Low Strength) 81 MG chewable tablet rosuvastatin (Crestor) 20 MG tablet Primary hypertension ([facility]) - Primary Please check blood pressure daily [...] Recurrent major depressive disorder, in full remission ([facility]) Takes klonopin prn, topirmate, seroquel as well Migraine with aura and without status migrainosus, not intractable ([facility]) Continue with topirimate Relevant Medications topiramate 50 MG tablet Overflow incontinence of urine Will reach out to Urology office to get an appt with them Relevant Orders Ambulatory referral to Urology Carotid artery stenosis Statin, asa, vascular monitoring Relevant Medications rosuvastatin (Crestor) 20 MG tablet Heart failure, unspecified ([facility]) Current meds: lasix, bblocker, crestor and amlodipine Does follow with [facility] cardiology Does have LE edema noted as well today, no dyspnea Peripheral vascular disease, unspecified (CMS/HCC) On statin, asa CRYSTAL (generalized anxiety disorder) (CMS/HCC) Has been [...] Urology Other Visit Diagnoses Anxiety and depression ([facility]) Relevant Medications clonazePAM (KlonoPIN) 0.5 MG tablet * Cindy Collado NP - 01/21/2024 6:46 AM ESTAssociated Problem(s): Migraine with aura and without status migrainosus, not intractable ([facility]) Continue with topirimate * Cindy Collado NP [...] bblocker, crestor and amlodipine Does follow with [facility] cardiology Does have LE edema [...] asa, amlodipine, metoprolol XL documented in this [facility]12-10-2024 Instructions* Patient Instructions* Cindy Collado NP - 01/21/2024 9:40 AM EST We will enroll you in Chronic Care Management with [facility] Ordered antibiotic, if we need to change atb based on culture will let you know I will call Urology office too to get you in documented in this [facility]10-28-2024 History of Present illness Narrative* Nakul Zazueta DO - 12/09/2023 9:00 AM EDT Images from the original note were not included. Chief complaint: Dizziness and imbalance Subjective Ozzie Gifford, 73 y.o., female HPI Ozzie, 73 y.o., female presents today for consultation at the request of Cindy Kohli NP for dizziness, impaired mobility and migraines. Recently seen at [facility]. A CT head, CT angio neck/head [...] , wrist extensors , wrist flexor , podiatry assistant strength 5/5. LUE Strength deltoid , biceps , triceps , wrist extensors , wrist flexor , podiatry assistant strength 5/5. RLE Strength illopsoas, quadriceps, tibialis [...] negative. Coordination: Substantial truncal ataxia noted. Abnormal linxps-mi-zshs testing. Abnormal vfsr-sj-vvom testing. Gait: Patient has a substantially magnetic [...] that the patient has substantial ataxia on umofen-yp-skul testing, she also hastruncal ataxia noted when closing her eyes and difficulty with ilxi-fq-aqnb. She has an ataxic gaitas well. This [...] patient has requested these be done at [facility] only. We will keep in mind consideration for testing levodopa responsiveness at follow up Patient may need to be referred to tertiary care center such as [facility] to evaluate for any potential research opportunities or alternative treatment options. History of ischemic stroke It is my impression that the patient has been having 6-9 months of dizziness. The patient did have this as a quite substantial problem in February of 2023 and was actually seen at [facility] where she had CT, CT angiogram of [...] monitoring of the patient. documented in this encounterAlvin J. Siteman Cancer [id number] History of Present illness Narrative* Aime Clark [...] Ambulatory referral to ENT documented in this encounterAlvin J. Siteman Cancer [id number] History of Present illness Narrative* Cindy Collado [...] List Items Addressed This Visit Mixed hyperlipidemia ([facility]) Relevant Orders Comprehensive metabolic panel Lipid panel Coronary atherosclerosis ([facility]) Crestor, toprol and ASA Relevant Medications aspirin (Aspirin Adult Low Strength) 81 MG chewable tablet Other Relevant Orders CBC and differential Lipid panel Cerebrovascular accident (CVA) ([facility]) Would like a more local neurologist Relevant Medications aspirin (Aspirin Adult Low Strength) 81 MG chewable tablet Other Relevant Orders CBC and differential Lipid panel Ambulatory referral to Neurology Dysarthria Primary hypertension ([facility]) stable Relevant Medications aspirin (Aspirin Adult Low Strength) 81 MG chewable tablet Other Relevant Orders Comprehensive metabolic panel Urinalysis with reflex microscopic (clean catch) Albumin, urine, random Migraine with aura and without status migrainosus, not intractable ([facility]) Relevant Orders Ambulatory referral to Neurology Dizziness and giddiness Refer to neuro Relevant Orders Ambulatory referral to Neurology Carotid artery stenosis Cont statin, and ASA Impaired mobility and activities of daily living Relevant Orders Ambulatory referral to Neurology Oropharyngeal dysphagia - Primary Cont with speech therapy Will refer to ENT Relevant Orders Ambulatory referral to ENT documented in this encounterAlvin J. Siteman Cancer [id number] NoteUT Cardiology - [facility] Subjective Bhargavluna Gifford is a 73 y.o. year old female patient being seen for 6 mo follow up CAD, hypertension, and LE edema. C/o chest pain 2-3 times a day, but attributes it from her inability to swallow. Patient Active Problem List Diagnosis Carotid artery stenosis Cerebrovascular accident ([facility]) Contusion of knee Coronary atherosclerosis Hypertension Knee joint replacement by other means Osteoarthrosis, unspecified whether generalized or localized, lower leg Reflex sympathetic dystrophy of lower limb Status post placement of implantable loop recorder Tear of medial cartilage or meniscus of knee, current Mixed hyperlipidemia Bradycardia Bilateral lower extremity edema Atypical angina ([facility]) SARAVIA (dyspnea on exertion) JASEN (acute kidney injury) ([facility]) AMS (altered mental status) Anemia Aphasia due to acute stroke ([facility]) Confusion Dysarthria Dysphagia Dystonia H/O traumatic brain injury Headache History of cerebrovascular accident (CVA) with residual deficit Hospital discharge follow-up Impaired mobility and activities of daily living Migraine with aura and without status migrainosus, not intractable Overflow incontinence of urine Recurrent major depressive disorder, in full remission ([facility]) Encounter for prophylactic measures, unspecified URTI [...] past year she was admitted to the [place] in October 2022 and February 2023 due to TIA symptoms. She and her son tell me that she underwent redo right carotid surgery this year at [facility]. Today she reports that she has [...] no abdominal tenderness. Musculoskeleta (more content not included)...[facility] 08-21-2023 Hospital Discharge instructions Patient Education 08/21/2023 [...] medicine. Follow these instructions at home: Take uvkr-knk-ohuzgbe and prescription medicines as told by your [...] provider. Document Revised: 03/14/2020 Document Reviewed: 11/17/2019 [employer]IN[employer] Patient Education 2022 [employer]. Follow Up Care 08/20/2023 09:52:06 With:BERNICE CLEMENTE PA-C, URL Address: [address] [place] [address] Business (1) When: only if needed [facility] 07-10-2024 NotePatient Education Caregiving Antibiotic Medicine, Adult [...] Follow these instructions at home: ? Take nkqv-hhd-zwpwtll and prescription medicines as told by your health care provider. ? Return to your normal activities as told by your health care provider. Ask your health care provider what activities are safe for you. ? Keep all follow-up visits as told by your health care provider. This is important. Contact a health care provider if: ? Your s (more content not included)...[facility]2024 Hospital Discharge instructions Patient Education 07/15/2023 13:39:51 [...] Treatment for this condition includes: Antibiotic medicine. Qiiy-iwo-szysslh medicines to treat discomfort. Drinking enough water [...] Follow these instructions at home: Medicines Take tqcc-yxt-ghqhyqq and prescription medicines only as told by [...] provider. Document Revised: 09/09/2020 Document Reviewed: 09/09/2020 [employer] Patient Education 2022 [employer]. 07/15/2023 13:39:50 Urinary Incontinence Urinary Incontinence Urinary [...] (electrical nerve stimulation). ?For women, using a center medical and lab director to prevent urine leaks. This is a [...] right after experiencing incontinence. General instructions Take cilp-qbq-zbrnxye and prescription medicines only as told by [...] important. Where to find more information National [place] of Diabetes and Digestive and Kidney Diseases: www.niddk.nih.gov [place] [employer] Association: www.urologyhealth.org Contact a health care [...] provider. Document Revised: 09/02/2020 Document Reviewed: 09/02/2020 [employer] Patient Education 2022 [employer]. Follow Up Care 07/15/2023 10:29:19 With:MITRA Quintero APRN, Carmen Rm, JAYESH, URL Address: When: Unknown Comments:1 yr w/ PVR [facility] 2024 Evaluation + Plan note Diagnostic Tests Pending * Urine Culture 07/15/23 [facility]05-24-2024 Miscellaneous Notes* Telephone Encounter - Adia Bowling CMA - 07/05/2023 2:43 PM EDT PT referral faxed to [facility] 07/02/23. Confirmation received. documented in this encounterSelect [facility] Telephone encounter Note* Telephone Encounter - Adia Bowling CMA - 07/05/2023 2:43 PM EDT PT referral faxed to [facility] 07/02/23. Confirmation received. [facility]24 Miscellaneous Notes* Telephone Encounter - Beti Danielle - 07/05/2023 10:56 AM EDT Please fax patients last office notes (07/02/2023) To: [facility] Fax #: [phone] Phone #: [phone], option 1 Who is calling: Bessy * Telephone Encounter - Tri Gregory - 07/05/2023 10:56 AM EDT Faxed included information to [phone] on 07/05/23 at 15:30 - 07/02/[address] Arita documented in this encounterSelect Medical Specialty [facility]05-24-2024 Telephone encounter Note* Telephone Encounter - Beti Danielle - 07/05/2023 10:56 AM EDT Please fax patients last office notes (07/02/2023) To: [facility] Fax #: [phone] Phone #: [phone], option 1 Who is calling: Bessy [facility]-2024 Telephone encounter Note* Telephone Encounter - Tri Gregory - 07/05/2023 10:56 AM EDT Faxed included information to [phone] on 07/05/23 at 15:30 - 07/02/[address] Arita [facility]-21-2024 History of Present illness Narrative* Martin Arita MD - 07/02/2023 9:00 AM EDT Images from the original note were not included. [address] [facility] [address] Patient: Ozzie Ramireziott Date of : 1950 Encounter Date: 07/02/2023 Patient Care Team: Gerry Godwin MD as PCP - General (Family Medicine) History of Present Illness: Ms. Ozzie Gifford is a 73 y.o. year old female who is seen today at the neurology dizzinessclinic at [facility] for a new patient visit. The [...] to display PTSD: No data to display Ancram: No data to display IMAN-10: No data to display Past Medical, Family, Surgical, and Social History Update: The following portions of the patient's history were reviewed and updated as appropriate: allergies, current medications, past family history, past medical history, past social history, past surgicalhistory and problem list. Past Medical History: Diagnosis Date Breast disorder Headache HTN (hypertension) Stroke ([facility]) Family History Problem Relation Age of Onset Brain Tumor Mother Cancer Father Heart attack Brother Past Surgical History: Procedure Laterality Date APPENDECTOMY BARIATRIC SURGERY BREAST MASS EXCISION Patient had milk duct removal and some breast tissue removal CHOLECYSTECTOMY COLONOSCOPY Diagnostic cerebral angiogram N/A 04/05/2018 Performed by Soren Hollingsworht MD at [facility] HYSTERECTOMY REPLACEMENT TOTAL KNEE Stroke Thrombectomy, 04/05/2018 N/A 04/05/2018 Performed by Soren Hollingsworth MD at [facility] TONSILLECTOMY Current Outpatient Medications [...] Right achilles 0 Left achilles 0 MDS-UPDRS: @FLOW([id number] [id number],[id number],2102 [id number],2102 63977,[id number],2102 62779,[id number],[id number],2102 74287,[id number],2102 53823,[id number],[id number],2102 46869,[id number])@ TETRAS: @FLOW([id number],30679,61948,29863,42127,36455,37468,74497,27408,59964,42212,15 710,67068,81738,1572 4,61286,62377,43088,96381,02699,53060,41179,98383,10768,09485,09834,78583,42295, 06000,49619,39257,15 797,31660,41648,01583,41079,24480,15366,82832,77279,56193,49470,96726,28945,1581 5,71326,05674)@ Assessment and Plan: Ozzie Gifford is a [...] List None Follow-up: 6 months Swapnil Morales [address] IMARTIN MD, was physically present with the participating [...] you for your understanding. documented in this encounterSelect [facility]04-24-2024 Miscellaneous Notes* Telephone Encounter - Tri Gregory [...] a sooner appt, pt did not answer. Sde left a brief message stating for a call back. documented in this [facility]04-24-2024 Telephone encounter Note* Telephone Encounter - Tri [...] to hear from our office. Please advise. [facility] Telephone encounter Note* Telephone Encounter - Martin Arita MD - 06/05/2023 2:58 PM EDT We can try to add on June 11, at 12:00 p.m.. [facility] Work Phone: [phone]) 783-486704-24-2024 Telephone encounter Note* Telephone Encounter - Britney Banks CMA - 06/05/2023 2:58 PM EDT Called pt to schedule a sooner appt, pt did not answer. Sde left a brief message stating for a call back. [facility] [employer] [id number] Miscellaneous Notes* Telephone Encounter - Re Becerra - 04/10/2023 11:48 AM EST Received a call from patient's PCP office regarding appointment that's scheduled on 07/02/23 at 9:00a with Dr. Arita. Their office stated patient was suppose to be scheduled within 3 weeks from seeing last provider Dr. Haddad, Sde did review office note and nothing was stated that patient neededa [address] Arita. Patient was scheduled at next available time for provider. Nofurther questions at this time. documented in this encounterHolmes County [facility] [employer] [id number] Telephone encounter Note* Telephone Encounter - Re Becerra - 04/10/2023 11:48 AM EST Received a call from patient's PCP office regarding appointment that's scheduled on 07/02/23 at 9:00a with Dr. Arita. Their office stated patient was suppose to be scheduled within 3 weeks from seeing last provider Dr. Haddad, Sde did review office note and nothing was stated that patient neededa [address] Arita. Patient was scheduled at next available time for provider. Nofurther questions at this time. [facility]-15-2024 Miscellaneous Notes* Telephone Encounter - Марина Whiting - 03/28/2023 2:16 PM EST First Attempt [facility] from [facility]- Left Voicemail New patient referral received. Dx:Dizzy [...] mailed 03/29/2023 - MMV documented in this encounterSelect Medical [facility]02-15-2024 Telephone encounter Note* Telephone Encounter - Марина [...] INSURANCE INFORMATION TO THEIR NEW PATIENT APPOINTMENT [employer]02-15-2024 Telephone encounter Note* Telephone Encounter - Viktoriya Myles - 03/28/2023 2:16 PM EST Patient is scheduled for the following appointment: 07/02/2023 09:00 - MARTIN ARITA MD New patient Dizzy [[id number]] Referring provider: Rabia Dubose PA-C i Referred to Dr. Arita *Insurance verified: [employer] MEDICARE ADVANTAGE* NOT A WORKMANS COMP CASE New patient paperwork mailed 03/29/2023 - MMV [employer]02-07-2024 History of Present illness Narrative* Duncan Haddad MD - 03/20/2023 1:00 PM EST Reason for visit: dizziness HPI: Ozzie Gifford is a 72 y.o. 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 She was seen at [facility] ER for of speech disturbance and gait [...] Date Breast disorder Headache HTN (hypertension) Stroke ([facility]) Past Surgical History Past Surgical History: Procedure Laterality Date APPENDECTOMY BARIATRIC SURGERY BREAST MASS EXCISION Patient had milk duct removal and some breast tissue removal CHOLECYSTECTOMY COLONOSCOPY Diagnostic cerebral angiogram N/A 04/05/2018 Performed by Soren Hollingsworth MD at [facility] HYSTERECTOMY REPLACEMENT TOTAL KNEE Stroke Thrombectomy, 04/05/2018 N/A 04/05/2018 Performed by Soren Hollingsworth MD at [facility] TONSILLECTOMY Family History The [...] in the note above. documented in this encounterSalem Regional Medical CenterPowerwave Technologies [id number] Instructions* Patient Instructions* Rabia Dubose PA-C - 03/20/2023 1:00 PM EST Continue aspirin and statin Follow up with dizziness specialist We will discuss with you following appointment with Dr. Arita documented in this encounterSalem Regional Medical Centeriexerci.se [facility] [id number] Hospital Discharge instructions Patient Education 03/07/2023 14:30:33 [...] (electrical nerve stimulation). ?For women, using a center medical and lab director to prevent urine leaks. This is a [...] right after experiencing incontinence. General instructions Take cylb-nan-dheuwxw and prescription medicines only as told by [...] important. Where to find more information National [place] of Diabetes and Digestive and Kidney Diseases: www.niddk.nih.gov [place] [employer] Association: www.urologyhealth.org Contact a health care [...] provider. Document Revised: 09/02/2020 Document Reviewed: 09/02/2020 [employer] Patient Education 2022 [employer]. Follow Up Care 02/21/2023 11:58:10 With:MITRA Quintero APRN, JAYESH Whaley, URL Address: When:Within 8 Week(s) Comments:w/ pvr [facility] 01-22-2024 Miscellaneous Notes* Telephone Encounter - Joie Leyva RN - 03/04/2023 10:13 AM EST ----- Message from Sara Ozuna PA-C sent at 03/02/2023 3:07 PM EST ----- Regarding: [facility] follow up Patient has appt with Dr. Elmore on 03/12, she was just seen at [facility] via telestroke on 03/02. Dr. Haddad would like her put in his neurointervention clinic so please move the appointment. [facility] abnormal vessel imaging in the right brachiocephalic and left ICA, MRI was negative for acute stroke. Please get imaging and reports from [place] prior to her appointment. * Telephone Encounter - Ginna Pak CMA - 03/04/2023 10:13 AM EST Faxed imaging request to [facility]. Currently waiting for response. * Telephone Encounter - Selin Peterson - 03/04/2023 10:13 AM EST Called patient and left VM * Telephone Encounter - Angie Sosa - 03/04/2023 10:13 AM EST Patient called and confirmed appointment. Patient will be here on 03/12/2023 at 9:30am * Telephone Encounter - Ginna Pak CMA - 03/04/2023 10:13 AM EST Radiology report was received and uploaded to [employer]. Confirmed on [employer] that images are also in. Please advise. [...] she must see one in person . Sde explained what video visits are, and patient states she is aware of what it is but she does notwant it. Pt was also upset that the earliest available for Dr. Haddad is 03/20/23 at 3:00 PM because she willdriving back in the dark. Pt does not want anything later than 1:30 PM. Tried to reach out to [employer] fiction and nonfiction prose writer could squeeze her in, but could not receive an answer on time. If it is not possible, fiction and nonfiction prose writer will call to reschedule. Please advise. * Telephone Encounter - Joie Leyva RN - 03/04/2023 10:13 AM EST Okay as scheduled documented in this encounterSelect Medical Specialty [facility]01-22-2024 Telephone encounter Note* Telephone Encounter - Joie Leyva RN - 03/04/2023 10:13 AM EST ----- Message from Sara Ozuna PA-C sent at 03/02/2023 3:07 PM EST ----- Regarding: [facility] follow up Patient has appt with Dr. Elmore on 03/12, she was just seen at [facility] via telestroke on 03/02. Dr. Haddad would like her put in his neurointervention clinic so please move the appointment. [facility] abnormal vessel imaging in the right brachiocephalic and left ICA, MRI was negative for acute stroke. Please get imaging and reports from [place] prior to her appointment. [employer]01-22-2024 Telephone encounter Note* Telephone Encounter - Ginna Pak CMA - 03/04/2023 10:13 AM EST Faxed imaging request to [facility]. Currently waiting for response. [employer]01-22-2024 Telephone encounter Note* Telephone Encounter - Selin Peterson - 03/04/2023 10:13 AM EST Called patient and left VM [employer]01-22-2024 Telephone encounter Note* Telephone Encounter - Angie Sosa - 03/04/2023 10:13 AM EST Patient called and confirmed appointment. Patient will be here on 03/12/2023 at 9:30am [employer]01-22-2024 Telephone encounter Note* Telephone Encounter - Ginna Pak CMA - 03/04/2023 10:13 AM EST Radiology report was received and uploaded to [employer]. Confirmed on [employer] that images are also in. Please advise. [employer]01-22-2024 Telephone encounter Note* Telephone Encounter - Ginna Pak CMA - 03/04/2023 10:13 AM EST Called pt to reschedule her appointment with Dr. Ramírez Haddad. She expressed frustration for trying reschedule last minute when her took off work for tomorrow's appointment. Suggested video visit for next week, but she insists on seeing regular doctor and she must see one in person . Sde explained what video visits are, and patient states she is aware of what it is but she does notwant it. Pt was also upset that the earliest available for Dr. Haddad is 03/20/23 at 3:00 PM because she willdriving back in the dark. Pt does not want anything later than 1:30 PM. Tried to reach out to [employer] fiction and nonfiction prose writer could squeeze her in, but could not receive an answer on time. If it is not possible, fiction and nonfiction prose writer will call to reschedule. Please advise. [employer]01-22-2024 Telephone encounter Note* Telephone Encounter - Joie Leyva RN - 03/04/2023 10:13 AM EST Okay as scheduled [employer]12-14-2023 Miscellaneous Notes* Telephone Encounter - Charlette Burr - 01/24/2023 12:46 PM EST Patient called to see if we received paperwork that was sent from her PCP in July. Caller states she has had a new stroke and needs to be seen. Patient states she has been having headaches and dizziness. Please advise [phone] * Telephone Encounter - oJie Leyva RN - 01/24/2023 12:46 PM EST Patient last seen in 2019. No paperwork has been completed or received. Please see where patient had recent stroke and gather records. * Telephone Encounter - Ginna Pak CMA - 01/24/2023 12:46 PM EST Called pt. She state Dr. Godwin sent the paperwork back in November 2022. MRI was done at [place] [facility] very recently. Sde will be requesting image and any office visit notes related to neurology. Pt seems to be very frustrated by the lack of communication. Sde informed that we will reach out to [facility] to gather as much information. Sde must note that the quality of the call was very poor and it was hard to communicate with thepatient. Asked if she could move to somewhere with a better medical office receptionist assistant, but even then the quality did not improve. At the end of the call, she showed more frustration which fiction and nonfiction prose writer could not understandand she hung up. * Telephone Encounter - Ginna Pak CMA - 01/24/2023 12:46 PM EST Called [facility] radiology to confirm if she has gotten any MRI in November. It was ordered by one of the hospitalists. A environmental health technician could not confirm who ordered the [...] 03/12/23 at 10:00 AM documented in this encounterSalem Regional Medical CenterPowerwave Technologies [id number] Telephone encounter Note* Telephone Encounter - Charlette Burr - 01/24/2023 12:46 PM EST Patient called to see if we received paperwork that was sent from her PCP in July. Caller states she has had a new stroke and needs to be seen. Patient states she has been having headaches and dizziness. Please advise [phone] [employer]12-14-2023 Telephone encounter Note* Telephone Encounter - Joie Leyva RN - 01/24/2023 12:46 PM EST Patient last seen in 2018. No paperwork has been completed or received. Please see where patient had recent stroke and gather records. [employer] [employer]12-14-2023 Telephone encounter Note* Telephone Encounter - Ginna Pak CMA - 01/24/2023 12:46 PM EST Called pt. She state Dr. Godwin sent the paperwork back in November 2022. MRI was done at [place] very recently. Sde will be requesting image and any office visit notes related to neurology. Pt seems to be very frustrated by the lack of communication. Sde informed that we will reach out to [place] to gather as much information. Sde must note that the quality of the call was very poor and it was hard to communicate with thepatient. Asked if she could move to somewhere with a better medical office receptionist assistant, but even then the quality did not improve. At the end of the call, she showed more frustration which fiction and nonfiction prose writer could not understandand she hung up. [facility] [id number] Telephone encounter Note* Telephone Encounter - Ginna Pak CMA - 01/24/2023 12:46 PM EST Called [facility] radiology to confirm if she has gotten any MRI in November. It was ordered by one of the hospitalists. A environmental health technician could not confirm who ordered the imaging, but confirmed that she pushed over the imaging through PACs and reports via fax. Currently waiting for response. [employer]12-14-2023 Telephone encounter Note* Telephone Encounter - Ginna Pak CMA - 01/24/2023 12:46 PM EST Faxed request for hospitalization records on nov 2022. Currently waiting for response. [employer]12-14-2023 Telephone encounter Note* Telephone Encounter - Ginna Pak CMA - 01/24/2023 12:46 PM EST Called and scheduled an appointment on 03/12/23 at 10:00 AM [employer]09-05-2023 Evaluation note* Encounter Date Diagnosis Assessment Notes [...] with chronic urinary symptoms. Patient verbalized understanding. [employer] Other 02-22-2023 Evaluation note* Encounter Date Diagnosis [...] 1 year with repeat studies for surveillance. [employer] Other 10-18-2022 NoteED Procedure Charges Entered On: 11/28/2021 17:45 EDT Performed On: 11/28/2021 17:44 EDT by Heena Crawford [employer] ([id number]) Sim Rep Sca to 2.5 [id number] : 1 Heena Crawford - 11/28/2021 17:44 [facility]10-14-2022 NoteED Nursing Discharge Summary Entered On: 11/24/2021 17:29 EDT Performed On: 11/24/2021 17:29 EDT by Jennifer Mccarhty RN ND Information [id number] ED IV's : No IV ED IV Site Assessment : No IV ED Vitals Completed : Yes ED Final Assessment Completed : Yes ED Progress Note Completed : Yes Complete all PRN/Pain response forms? : Yes ED Disassociate Patient from Monitor : N/A Updated Depart Time : Yes ED Belongings sent w patient [id number] : Not applicable Jennifer Mccarthy RN - [...] Jennifer Mccarthy RN - 11/24/2021 17:29 EDT [facility]10-14-2022 NotePROCEDURE: CT CHEST WITHOUT IV CONTRAST HISTORY: WHAT SYMPTOMS ARE YOU EXPERIENCING? - PT FELL AND HIT HEAD, PAIN, HX OF STROKE 2019, SOB, CHEST PAIN PAIN COMPARISON: None TECHNIQUE: Multiple contiguous axial CT images of the chest were obtained without the administration of intravenous contrast. Sagittal and coronal reconstructions were performed. All CT scans at [facility] use dose modulation, iterative reconstruction, and/or weight [...] in diameter. See below for follow-up recommendations. [facility] MANDATED QUALITY DATA - FOLLOW-UP IMAGING FOR [...] By: ISMAEL AGUILAR MD Signed Out: 11/24/21 14:28:[address] [place], [place] 4800510-12-2022 Consult note Author Shavon Srinivasannadege [facility] November 22, 2021 11:54amNote Date/TimeOct2021 11:45[place] [address] Cardiology Consult Note Signed Patient: Ozzie Gifford MR#: [id number] : 1950 Acct:[id number] Age/Sex: 71 / F Adm Date: 2 Loc: Room: [address] [place] [address] Type: ADM IN Attending Dr: Anna Valladares [...] past she underwent work-up by cardiology in [place]. 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 [place] Documented By: Shavon Leos MD 11/22/21 1143 Signed By: <Electronically signed by MD Shavon Leos> 11/22/21 1154 [facility] Work Phone: [phone]) 834-553810-12-2022 Progress note Author Anna Valladares [facility] November 22, 2021 8:17amNote Date/TimeOctober 2021 12:10pm[place] [address] Hospitalist Progress Note Signed Patient: BaltaEwagilbertluna Pino MR#: [id number] : 1950 Acct:[id number] Age/Sex: 71 / F Adm Date: 2 Loc: 3T Room: [address] [place] [address] Type: ADM IN Attending Dr: Anna Valladares [...] 2 1210 Signed By: <Electronically signed by MIREYA-LEONEL Rodriguez> 11/21/21 1424 <Electronically signed by Anna Valladares MD> 11/22/21 0817 [facility] Work Phone: [phone]) 241-392910-11-2022 History and physical note Author Ashleigh Rashid [facility] November 21, 2021 6:39amNote Date/TimeOct2021 6:39amGall[place]in[place] [address] Hospitalist H&P Signed Patient: Ozzie Gifford MR#: [id number] : 1950 Acct:[id number] Age/Sex: 71 / F Adm Date: 2 Loc: ER Room: Type: [facility] ER Attending Dr: Copies to: MD Rafiq [...] of appendectomy History of cardiac catheterization 2020 [facility] History of knee replacement right [...] pH 5.5 (5.0-9.0) 11/21/21 04:20 Ur Specific [place] 1.010 (1.001-1.030) 11/21/21 04:20 Urine Protein Negative [...] Lovenox Documented By: Ashleigh Cruz MD 2 2392 Signed By: <Electronically signed by Ashleigh Cruz MD> 11/21/21 0639 [facility] Work Phone: 1(477) 288-457210-11-2022 History and physical note Author Ashleigh Rashid [facility] November 21, 2021 6:39amNote Date/TimeOct2021 6:39amGall[place] [address] Hospitalist H&P Signed Patient: Ozzie Gifford MR#: [id number] : 1950 Acct:[id number] Age/Sex: 71 / F Adm Date: 2 Loc: ER Room: Type: [facility] ER Attending Dr: Copies to: MD Rafiq [...] of appendectomy History of cardiac catheterization 2020 [facility] History of knee replacement right [...] pH 5.5 (5.0-9.0) 11/21/21 04:20 Ur Specific [place] 1.010 (1.001-1.030) 11/21/21 04:20 Urine Protein Negative [...] signed by Ashleigh Cruz MD> 11/21/21 0639 [facility] Work Phone: 1(467) 224-614208-17-2022 Evaluation note* Encounter Date Diagnosis Assessment Notes [...] studies. All of her questions were addressed. [employer] Other 08-12-2022 Evaluation note* Encounter Date Diagnosis [...] Advised that patient may continue to use [id number]-ljecpsp medications as needed for supportive treatment. Discussed that it could be possible that her nausea/vomiting/diarrhea could still be some residual side effects from the Paxlovid medication. At this time she should not take anymore that. She may follow-up with family doctor as scheduled on Saturday if she has more concerns. [employer] Other 08-10-2022 Evaluation note* Encounter Date Diagnosis Assessment Notes Treatment Notes Treatment Clinical Notes Sep, Other fractures of l ower end of left radius, subsequent encounter for closed fracture with routine healing (ICD-10 - S52.592D) Sep,losed nondisplaced fracture of proximal phalanx of right middle finger, initial encounter (ICD-10 - S62.642A) Sep,rthritis of right hand (ICD-10 - M19.041) Sep,ight hand pain (ICD-10 - M79.641) Sep,ther specified postprocedural states (ICD-10 - Z98.890)Patient is progressing well from surgery. We discussed the importance of continuing to work on range of motion and strength exercise. Patient instructed to follow up as needed. She voices understanding and states no new questions or concerns at this time. [employer] Other 06-22-2022 Evaluation note* Encounter Date Diagnosis Assessment Notes Treatment Notes Treatment Clinical Notes Jul, Other fractures of l ower end of left radius, subsequent encounter for closed fracture with routine healing (ICD-10 - S52.592D) Jul, losed nondisplaced fracture of proximal phalanx of right middle finger, initial encounter (ICD-10 - S62.642A)Continue with gentle ROM exercises Jul,rthritis of right hand (ICD-10 - M19.041) Jul,2Right hand pain (ICD-10 - M79.641) Jul,ther specified postprocedural states (ICD-10 - Z98.890) [employer] Other 06-01-2022 Evaluation note* Encounter Date Diagnosis [...] Jul,ther specified postprocedural states (ICD-10 - Z98.890) [employer] Other 04-20-2022 Evaluation note* Encounter Date Diagnosis Assessment Notes Treatment Notes Treatment Clinical Notes May, Other specified postprocedural s tates (ICD-10 - Z98.890) May,2Other fractures of lower end of left radius, [...] Progress activity as tolerated. Call with questions/concerns. [employer] Other 03-23-2022 Evaluation note* Encounter Date Diagnosis Assessment Notes Treatment Notes Treatment Clinical Notes Apr, Other specified postprocedural s tates (ICD-10 - Z98.890) Radiographs reviewed with patient. Patient is progressing well from surgery. Continue occupational therapy exercises. Call with questions/concerns. Apr,ther fractures of lower end of left radius, subsequent encounter for closed fracture with routine healing (ICD-10 - S52.592D) [employer] Other 01-20-2022 Evaluation note* Encounter Date Diagnosis [...] or reaches 80% or she develops symptoms [employer] Other 10-21-2021 Evaluation note* Encounter Date Diagnosis [...] suggested ice and elevation with compression stockings. [employer] Other 09-30-2021 Evaluation note* Encounter Date Diagnosis [...] classify this is asymptomatic recurrent stenoses currently. [employer] Other Evaluation + Plan note No data available for this section [facility] Evaluation + Plan note Future Appointments Appointment Date:04/01/2024 08:40:00 AM Scheduled Provider:BERNICE CLEMENTE PA-C Location:[facility] Appointment Type:URO Office Visit [facility] Evaluation + Plan note Future Appointments Appointment Date:04/01/2024 08:40:00 AM Scheduled Provider:BERNICE CLEMENTE PA-C Location:[facility] Appointment Type:URO Office Visit Diagnostic Tests Pending * Urine Culture 02/20/24 [facility] evaluation + Plan note Future Appointments Appointment Date:04/22/2024 11:20:00 AM Scheduled Provider:BERNICE CLEMENTE PA-C Location:[facility] Appointment Type:URO Office Visit Diagnostic Tests Pending * Urine Culture 04/01/24 [facility] evaluation + Plan note Future Appointments Appointment Date:04/22/2024 11:20:00 AM Scheduled Provider:BERNICE CLEMENTE PA-C Location:[facility] Appointment Type:URO Office Visit [facility] evaluation + Plan note Future Appointments Appointment Date:08/05/2024 03:00:00 PM Scheduled Provider:BERNICE CLEMENTE PA-C Location:[facility] Appointment Type:URO Office Visit [facility] evaluation + Plan note Future Appointments Appointment Date:08/05/2024 03:00:00 PM Scheduled Provider:BERNICE CLEMENTE PA-C Location:[facility] Appointment Type:URO Office Visit Diagnostic Tests Pending * Urine Culture 06/30/24 [facility] Evaluation + Plan note Future Appointments Appointment Date:08/17/2024 09:00:00 AM Scheduled Provider: Location:[facility] Appointment Type:Urology CALL PAT FT Appointment Date:08/18/2024 09:00:00 AM Scheduled Provider: Location:[facility] Appointment Type:Urology FT [facility] Evaluation + Plan note Future Appointments Appointment Date:09/02/2024 12:30:00 PM Scheduled Provider: Location:[facility] Appointment Type:Urology CALL PAT FT Appointment Date:09/03/2024 09:00:00 AM Scheduled Provider: Location:[facility] Appointment Type:Urology FT [facility] Evaluation + Plan note Future Appointments Appointment Date:09/18/2024 04:00:00 PM Scheduled Provider: Location:[facility] Appointment Type:Urology CALL PAT FT Appointment Date:09/22/2024 09:45:00 AM Scheduled Provider: Location:[facility] Appointment Type:Urology FT Appointment Date:10/08/2024 09:00:00 AM Scheduled Provider:MITRA Quintero APRN, [place] [facility] Location:[facility] Appointment Type:URO Office Visit [facility] Evaluation + Plan note Future Appointments Appointment Date:02/01/2025 08:00:00 AM Scheduled Provider:MITRA Quintero APRN, [place] [facility] Location:[facility] Appointment Type:URO Office Visit [facility] evaluation noteNo assessment information available [facility] Work Phone: evaluation noteNo [employer] Other evaluation note* Diagnosis Onset Date Resolution Status JASEN (acute kidney injury) acuteAMS (altered mental status)acuteImpaired mobility and activities of daily livingacuteSymptomatic bradycardiaacute [facility] Work Phone: Evaluation note* Diagnosis Onset Date Resolution Status JASEN (acute kidney injury) acuteAMS (altered mental status)acuteImpaired mobility and activities of daily livingacuteSymptomatic bradycardiaacuteH/O traumatic brain injurychronicHLD (hyperlipidemia)chronicHTN, goal below 140/90chronic [facility] Work Phone: evaluation note* Diagnosis Anxiety and depression (CMS/HCC)- Primary [facility] Diagnosis Onset Date Resolution Status Carotid stenosis acuteCarotid stenosisacute [facility] Work Phone: evaluation note* Diagnosis Onset Date Resolution Status Carotid stenosis acuteCarotid stenosisacuteUTI (urinary tract infection)noneactiveContact with or exposure to viral diseasenoneactive [facility] Work Phone: Evaluation note* Diagnosis Onset Date Resolution Status UTI (urinary tract infection) noneactiveContact with or exposure to viral diseasenoneactive [facility] Work Phone: Evaluation note* Diagnosis Onset Date Resolution Status UTI (urinary tract infection) noneactiveContact with or exposure to viral diseasenoneactiveInternal carotid artery stent presentacute [facility] Work Phone: evaluation note* Diagnosis Urinary tract [...] mechanism (CMS/HCC) Atherosclerosis of coronary artery of algaaciq heart, unspecified vessel or lesion type, unspecified [...] Dysphagia, oropharyngeal phase documented in this encounter [facility]* [...] mechanism (CMS/HCC) Atherosclerosis of coronary artery of algaaciq heart, unspecified vessel or lesion type, unspecified [...] and depression (CMS/HCC) documented in this encounter [facility]* Diagnosis URTI (acute upper [...] mechanism (CMS/HCC) Atherosclerosis of coronary artery of algaaciq heart, unspecified vessel or lesion type, unspecified [...] of ischemic stroke documented in this encounter [facility]* Diagnosis Acute cystitis without hematuria- Primary [facility] in this encounter [facility]* Diagnosis Urinary tract infection symptoms- [...] mechanism (CMS/HCC) Atherosclerosis of coronary artery of algaaciq heart, unspecified vessel or lesion type, unspecified whether angina present (CMS/HCC) Primary hypertension ([facility]) Unspecified essential hypertension Stenosis of right carotid [...] disease, unspecified Atherosclerosis of coronary artery of algaaciq heart, unspecified vessel or lesion type, unspecified whether angina present ([facility]/HCC) Stenosis of right carotid artery Occlusion and stenosis of carotid artery without mention of cerebral infarction Recurrent major depressive disorder, in full remission ([facility]) Cerebrovascular accident (CVA), unspecified mechanism (CMS/HCC) Muscle spasm Spasm of muscle Iron deficiency Disorders of iron metabolism Psychophysiological insomnia Persistent disorder of initiating or maintaining sleep Migraine with aura and without status migrainosus, not intractable (CMS/HCC) CRYSTAL (generalized anxiety disorder) ([facility]) Generalized anxiety disorder UTI symptoms Anxiety and depression ([facility]) Overflow incontinence of urine Overflow incontinence Chronic [...] phase Dysarthria Cerebrovascular accident (CVA), unspecified mechanism ([facility]/HCC) Atherosclerosis of coronary artery of algaaciq heart, unspecified vessel or lesion type, unspecified whether angina present ([facility]/HCC) Primary hypertension ([facility]) Unspecified essential hypertension Stenosis of right carotid artery Occlusion and stenosis of carotid artery without mention of cerebral infarction Mixed hyperlipidemia ([facility]) Mixed hyperlipidemia Dizziness and giddiness Impaired mobility and activities of daily living Migraine with aura and without status migrainosus, not intractable (CMS/HCC) Muscle spasm Spasm of muscle Anxiety and depression ([facility]) Iron deficiency Disorders of iron metabolism Psychophysiological insomnia Persistent disorder of initiating or maintaining sleep Primary hypertension ([facility])- Primary Unspecified essential hypertension Heart failure, unspecified ([facility]) Heart failure, unspecified Peripheral vascular disease, unspecified ([facility]) Peripheral vascular disease, unspecified Atherosclerosis of coronary artery of algaaciq heart, unspecified vessel or lesion type, unspecified whether angina present ([facility]) Stenosis of right carotid artery Occlusion and stenosis of carotid artery without mention of cerebral infarction Recurrent major depressive disorder, in full remission ([facility]) Cerebrovascular accident (CVA), unspecified mechanism ([facility]) Muscle spasm Spasm of muscle Iron deficiency Disorders of iron metabolism Psychophysiological insomnia Persistent disorder of initiating or maintaining sleep Migraine with aura and without status migrainosus, not intractable ([facility]/HCC) CRYSTAL (generalized anxiety disorder) ([facility]) Generalized anxiety disorder UTI symptoms Anxiety and depression ([facility]) Overflow incontinence of urine Overflow incontinence Chronic UTI Urinary tract infection, site not specified Chronic UTI- Primary Urinary tract infection, site not specified documented [facility]* Diagnosis Cerebrovascular accident (CVA), unspecified mechanism ([facility]/HCC)- Primary Oropharyngeal dysphagia Dysphagia, oropharyngeal phase Dysarthria documented in [facility] encounter [facility]* Diagnosis Oropharyngeal dysphagia- Primary Dysphagia, oropharyngeal phase Dysarthria Cerebrovascular accident (CVA), unspecified mechanism ([facility]/HCC) Atherosclerosis of coronary artery of algaaciq heart, unspecified vessel or lesion type, unspecified whether angina present ([facility]) Primary hypertension ([facility]) Unspecified essential hypertension Stenosis of right carotid [...] mechanism (CMS/HCC) Atherosclerosis of coronary artery of algaaciq heart, unspecified vessel or lesion type, unspecified [...] disease, unspecified Atherosclerosis of coronary artery of algaaciq heart, unspecified vessel or lesion type, unspecified [...] not intractable (CMS/HCC) CRYSTAL (generalized anxiety disorder) ([facility]) Generalized anxiety disorder UTI symptoms Anxiety and depression ([facility]) Overflow incontinence of urine Overflow incontinence Chronic UTI Urinary tract infection, site not specified Chronic UTI- Primary Urinary tract infection, site not specified Cerebrovascular accident (CVA), unspecified mechanism (CMS/HCC)- Primary Dysarthria White matter disease Stenosis of carotid artery, unspecified laterality Peripheral vascular disease, unspecified ([facility]) Peripheral vascular disease, unspecified Overflow incontinence of urine Overflow incontinence Dizziness and giddiness documented in this encounter [facility] HealthcareEvaluation note* Diagnosis Functional gait disorder- Primary Dizziness Dizziness and giddiness documented in [facility] Diagnosis Dizzy- Primary Dizziness and giddiness 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 ([facility]) Dizziness Dizziness and giddiness documented in this encounter [facility] SystemEvaluation note* Diagnosis URTI (acute upper [...] oropharyngeal phase Dizziness and giddiness Primary hypertension ([facility])- Primary Unspecified essential hypertension Migraine with aura and without status migrainosus, not intractable ([facility]) Oropharyngeal dysphagia Dysphagia, oropharyngeal phase Oropharyngeal dysphagia- Primary Dysphagia, oropharyngeal phase Dysarthria Cerebrovascular accident (CVA), unspecified mechanism ([facility]) Atherosclerosis of coronary artery of algaaciq heart, unspecified vessel or lesion type, unspecified whether angina present ([facility]) Primary hypertension ([facility]) Unspecified essential hypertension Stenosis of right carotid artery Occlusion and stenosis of carotid artery without mention of cerebral infarction Mixed hyperlipidemia ([facility]) Mixed hyperlipidemia Dizziness and giddiness Impaired mobility and activities of daily living Migraine with aura and without status migrainosus, not intractable ([facility]/HCC) Muscle spasm Spasm of muscle Anxiety and depression ([facility]) Iron deficiency Disorders of iron metabolism Psychophysiological insomnia Persistent disorder of initiating or maintaining sleep Primary hypertension ([facility]/HCC)- Primary Unspecified essential hypertension Heart failure, unspecified (CMS/[facility]) Heart failure, unspecified Peripheral vascular disease, unspecified ([facility]) Peripheral vascular disease, unspecified Atherosclerosis of coronary artery of algaaciq heart, unspecified vessel or lesion type, unspecified whether angina present ([facility]) Stenosis of right carotid artery Occlusion and stenosis of carotid artery without mention of cerebral infarction Recurrent major depressive disorder, in full remission ([facility]) Cerebrovascular accident (CVA), unspecified mechanism ([facility]) Muscle spasm Spasm of muscle Iron deficiency Disorders of iron metabolism Psychophysiological insomnia Persistent disorder of initiating or maintaining sleep Migraine with aura and without status migrainosus, not intractable ([facility]) CRYSTAL (generalized anxiety disorder) ([facility]) Generalized anxiety disorder UTI symptoms Anxiety and depression ([facility]) Overflow incontinence of urine Overflow incontinence Chronic UTI Urinary tract infection, site not specified Impaired mobility and activities of daily living History of cerebrovascular accident (CVA) with residual deficit Chronic UTI- Primary Urinary tract infection, site not specified Primary hypertension ([facility])- Primary Unspecified essential hypertension Cerebrovascular accident (CVA), unspecified mechanism ([facility]) Dizziness and giddiness Overflow incontinence of urine Overflow incontinence CRYSTAL (generalized anxiety disorder) ([facility]) Generalized anxiety disorder Impaired mobility and activities [...] oropharyngeal phase Dizziness and giddiness Primary hypertension ([facility]/HCC)- Primary Unspecified essential hypertension Migraine with aura and without status migrainosus, not intractable ([facility]) Oropharyngeal dysphagia Dysphagia, oropharyngeal phase Oropharyngeal dysphagia- Primary Dysphagia, oropharyngeal phase Dysarthria Cerebrovascular accident (CVA), unspecified mechanism ([facility]/HCC) Atherosclerosis of coronary artery of algaaciq heart, unspecified vessel or lesion type, unspecified whether angina present ([facility]) Primary hypertension ([facility]) Unspecified essential hypertension Stenosis of right carotid artery Occlusion and stenosis of carotid artery without mention of cerebral infarction Mixed hyperlipidemia ([facility]) Mixed hyperlipidemia Dizziness and giddiness Impaired mobility and activities of daily living Migraine with aura and without status migrainosus, not intractable ([facility]/HCC) Muscle spasm Spasm of muscle Anxiety and depression ([facility]/HCC) Iron deficiency Disorders of iron metabolism Psychophysiological insomnia Persistent disorder of initiating or maintaining sleep Primary hypertension ([facility]/HCC)- Primary Unspecified essential hypertension Heart failure, unspecified (CMS/HCC) Heart failure, unspecified Peripheral vascular disease, unspecified ([facility]) Peripheral vascular disease, unspecified Atherosclerosis of coronary artery of algaaciq heart, unspecified vessel or lesion type, unspecified whether angina present ([facility]) Stenosis of right carotid artery Occlusion and stenosis of carotid artery without mention of cerebral infarction Recurrent major depressive disorder, in full remission ([facility]) Cerebrovascular accident (CVA), unspecified mechanism ([facility]) Muscle spasm Spasm of muscle Iron deficiency Disorders of iron metabolism Psychophysiological insomnia Persistent disorder of initiating or maintaining sleep Migraine with aura and without status migrainosus, not intractable ([facility]/HCC) CRYSTAL (generalized anxiety disorder) ([facility]) Generalized anxiety disorder UTI symptoms Anxiety and depression ([facility]) Overflow incontinence of urine Overflow incontinence Chronic UTI Urinary tract infection, site not specified Impaired mobility and activities of daily living History of cerebrovascular accident (CVA) with residual deficit Chronic UTI- Primary Urinary tract infection, site not specified Primary hypertension ([facility]/HCC)- Primary Unspecified essential hypertension Cerebrovascular accident (CVA), unspecified mechanism ([facility]/HCC) Dizziness and giddiness Overflow incontinence of urine Overflow incontinence CRYSTAL (generalized anxiety disorder) ([facility]) Generalized anxiety disorder Impaired mobility and activities [...] phase Dysarthria Cerebrovascular accident (CVA), unspecified mechanism ([facility]/HCC) Atherosclerosis of coronary artery of algaaciq heart, unspecified vessel or lesion type, unspecified whether angina present ([facility]) Primary hypertension ([facility]) Unspecified essential hypertension Stenosis of right carotid artery Occlusion and stenosis of carotid artery without mention of cerebral infarction Mixed hyperlipidemia ([facility]) Mixed hyperlipidemia Dizziness and giddiness Impaired mobility and activities of daily living Migraine with aura and without status migrainosus, not intractable ([facility]) Muscle spasm Spasm of muscle Anxiety and depression ([facility]) Iron deficiency Disorders of iron metabolism Psychophysiological insomnia Persistent disorder of initiating or maintaining sleep Primary hypertension ([facility])- Primary Unspecified essential hypertension Heart failure, unspecified ([facility]) Heart failure, unspecified Peripheral vascular disease, unspecified ([facility]) Peripheral vascular disease, unspecified Atherosclerosis of coronary artery of algaaciq heart, unspecified vessel or lesion type, unspecified whether angina present ([facility]) Stenosis of right carotid artery Occlusion and stenosis of carotid artery without mention of cerebral infarction Recurrent major depressive disorder, in full remission ([facility]) Cerebrovascular accident (CVA), unspecified mechanism ([facility]) Muscle spasm Spasm of muscle Iron deficiency Disorders of iron metabolism Psychophysiological insomnia Persistent disorder of initiating or maintaining sleep Migraine with aura and without status migrainosus, not intractable ([facility]) CRYSTAL (generalized anxiety disorder) ([facility]) Generalized anxiety disorder UTI symptoms Anxiety and depression ([facility]) Overflow incontinence of urine Overflow incontinence Chronic UTI Urinary tract infection, site not specified Impaired mobility and activities of daily living History of cerebrovascular accident (CVA) with residual deficit Chronic UTI- Primary Urinary tract infection, site not specified Primary hypertension ([facility]/HCC)- Primary Unspecified essential hypertension Cerebrovascular accident (CVA), unspecified mechanism ([facility]) Dizziness and giddiness Overflow incontinence of urine Overflow incontinence CRYSTAL (generalized anxiety disorder) ([facility]) Generalized anxiety disorder Impaired mobility and activities [...] oropharyngeal phase Dizziness and giddiness Primary hypertension ([facility]/HCC)- Primary Unspecified essential hypertension Migraine with aura and without status migrainosus, not intractable ([facility]/HCC) Oropharyngeal dysphagia Dysphagia, oropharyngeal phase Oropharyngeal dysphagia- Primary Dysphagia, oropharyngeal phase Dysarthria Cerebrovascular accident (CVA), unspecified mechanism (CMS/HCC) Atherosclerosis of coronary artery of algaaciq heart, unspecified vessel or lesion type, unspecified whether angina present (CMS/HCC) Primary hypertension ([facility]) Unspecified essential hypertension Stenosis of right carotid artery Occlusion and stenosis of carotid artery without mention of cerebral infarction Mixed hyperlipidemia (CMS/[facility]) Mixed hyperlipidemia Dizziness and giddiness Impaired mobility and activities of daily living Migraine with aura and without status migrainosus, not intractable ([facility]) Muscle spasm Spasm of muscle Anxiety and depression ([facility]) Iron deficiency Disorders of iron metabolism Psychophysiological insomnia Persistent disorder of initiating or maintaining sleep Primary hypertension ([facility]/HCC)- Primary Unspecified essential hypertension Heart failure, unspecified (CMS/HCC) Heart failure, unspecified Peripheral vascular disease, unspecified ([facility]) Peripheral vascular disease, unspecified Atherosclerosis of coronary artery of algaaciq heart, unspecified vessel or lesion type, unspecified whether angina present ([facility]) Stenosis of right carotid artery Occlusion and stenosis of carotid artery without mention of cerebral infarction Recurrent major depressive disorder, in full remission ([facility]) Cerebrovascular accident (CVA), unspecified mechanism ([facility]) Muscle spasm Spasm of muscle Iron deficiency Disorders of iron metabolism Psychophysiological insomnia Persistent disorder of initiating or maintaining sleep Migraine with aura and without status migrainosus, not intractable (CMS/HCC) CRYSTAL (generalized anxiety disorder) ([facility]) Generalized anxiety disorder UTI symptoms Anxiety and depression ([facility]) Overflow incontinence of urine Overflow incontinence Chronic UTI Urinary tract infection, site not specified Impaired mobility and activities of daily living History of cerebrovascular accident (CVA) with residual deficit Chronic UTI- Primary Urinary tract infection, site not specified Primary hypertension ([facility]/HCC)- Primary Unspecified essential hypertension Cerebrovascular accident (CVA), unspecified mechanism ([facility]) Dizziness and giddiness Overflow incontinence of urine Overflow incontinence CRYSTAL (generalized anxiety disorder) ([facility]/HCC) Generalized anxiety disorder Impaired mobility and activities [...] oropharyngeal phase Dizziness and giddiness Primary hypertension ([facility]/HCC)- Primary Unspecified essential hypertension Migraine with aura and without status migrainosus, not intractable ([facility]) Oropharyngeal dysphagia Dysphagia, oropharyngeal phase Oropharyngeal dysphagia- Primary Dysphagia, oropharyngeal phase Dysarthria Cerebrovascular accident (CVA), unspecified mechanism ([facility]) Atherosclerosis of coronary artery of algaaciq heart, unspecified vessel or lesion type, unspecified whether angina present ([facility]) Primary hypertension ([facility]) Unspecified essential hypertension Stenosis of right carotid artery Occlusion and stenosis of carotid artery without mention of cerebral infarction Mixed hyperlipidemia (CMS/[facility]) Mixed hyperlipidemia Dizziness and giddiness Impaired mobility and activities of daily living Migraine with aura and without status migrainosus, not intractable ([facility]) Muscle spasm Spasm of muscle Anxiety and depression ([facility]) Iron deficiency Disorders of iron metabolism Psychophysiological insomnia Persistent disorder of initiating or maintaining sleep Primary hypertension ([facility])- Primary Unspecified essential hypertension Heart failure, unspecified (CMS/HCC) Heart failure, unspecified Peripheral vascular disease, unspecified ([facility]) Peripheral vascular disease, unspecified Atherosclerosis of coronary artery of algaaciq heart, unspecified vessel or lesion type, unspecified whether angina present ([facility]) Stenosis of right carotid artery Occlusion and stenosis of carotid artery without mention of cerebral infarction Recurrent major depressive disorder, in full remission ([facility]) Cerebrovascular accident (CVA), unspecified mechanism ([facility]/HCC) Muscle spasm Spasm of muscle Iron deficiency Disorders of iron metabolism Psychophysiological insomnia Persistent disorder of initiating or maintaining sleep Migraine with aura and without status migrainosus, not intractable (CMS/HCC) CRYSTAL (generalized anxiety disorder) ([facility]) Generalized anxiety disorder UTI symptoms Anxiety and [...] urine Overflow incontinence CRYSTAL (generalized anxiety disorder) ([facility]/HCC) Generalized anxiety disorder Impaired mobility and activities [...] oropharyngeal phase Dizziness and giddiness Primary hypertension ([facility]/HCC)- Primary Unspecified essential hypertension Migraine with aura and without status migrainosus, not intractable ([facility]/HCC) Oropharyngeal dysphagia Dysphagia, oropharyngeal phase Oropharyngeal dysphagia- Primary Dysphagia, oropharyngeal phase Dysarthria Cerebrovascular accident (CVA), unspecified mechanism (CMS/HCC) Atherosclerosis of coronary artery of al[place]aciq heart, unspecified vessel or lesion type, unspecified whether angina present ([facility]) Primary hypertension ([facility]) Unspecified essential hypertension Stenosis of right carotid artery Occlusion and stenosis of carotid artery without mention of cerebral infarction Mixed hyperlipidemia (CMS/HCC) Mixed hyperlipidemia Dizziness and giddiness Impaired mobility and activities of daily living Migraine with aura and without status migrainosus, not intractable (CMS/HCC) Muscle spasm Spasm of muscle Anxiety and depression ([facility]/HCC) Iron deficiency Disorders of iron metabolism Psychophysiological insomnia Persistent disorder of initiating or maintaining sleep Primary hypertension (CMS/HCC)- Primary Unspecified essential hypertension Heart failure, unspecified (CMS/HCC) Heart failure, unspecified Peripheral vascular disease, unspecified (CMS/HCC) Peripheral vascular disease, unspecified Atherosclerosis of coronary artery of al[place]aciq heart, unspecified vessel or lesion type, unspecified whether angina present ([facility]) Stenosis of right carotid artery Occlusion and stenosis of carotid artery without mention of cerebral infarction Recurrent major depressive disorder, in full remission ([facility]) Cerebrovascular accident (CVA), unspecified mechanism ([facility]) Muscle spasm Spasm of muscle Iron deficiency Disorders of iron metabolism Psychophysiological insomnia Persistent disorder of initiating or maintaining sleep Migraine with aura and without status migrainosus, not intractable ([facility]/HCC) CRYSTAL (generalized anxiety disorder) ([facility]) Generalized anxiety disorder UTI symptoms Anxiety and depression ([facility]) Overflow incontinence of urine Overflow incontinence Chronic UTI Urinary tract infection, site not specified Impaired mobility and activities of daily living History of cerebrovascular accident (CVA) with residual deficit Chronic UTI- Primary Urinary tract infection, site not specified Primary hypertension ([facility])- Primary Unspecified essential hypertension Cerebrovascular accident (CVA), unspecified mechanism ([facility]) Dizziness and giddiness Overflow incontinence of urine Overflow incontinence CRYSTAL (generalized anxiety disorder) ([facility]) Generalized anxiety disorder Impaired mobility and activities of daily living Acute diffuse otitis externa of both ears- Primary Chronic UTI- Primary Urinary tract infection, site not specified Anxiety and depression ([facility]) Overflow incontinence of urine Overflow incontinence documented [...] oropharyngeal phase Dizziness and giddiness Primary hypertension ([facility]/HCC)- Primary Unspecified essential hypertension Migraine with aura and without status migrainosus, not intractable ([facility]) Oropharyngeal dysphagia Dysphagia, oropharyngeal phase Oropharyngeal dysphagia- Primary Dysphagia, oropharyngeal phase Dysarthria Cerebrovascular accident (CVA), unspecified mechanism ([facility]) Atherosclerosis of coronary artery of algaaciq heart, unspecified vessel or lesion type, unspecified whether angina present ([facility]) Primary hypertension ([facility]) Unspecified essential hypertension Stenosis of right carotid [...] disease, unspecified Atherosclerosis of coronary artery of algaaciq heart, unspecified vessel or lesion type, unspecified [...] not intractable (CMS/HCC) CRYSTAL (generalized anxiety disorder) ([facility]) Generalized anxiety disorder UTI symptoms Anxiety and depression ([facility]) Overflow incontinence of urine Overflow incontinence Chronic UTI Urinary tract infection, site not specified Impaired mobility and activities of daily living History of cerebrovascular accident (CVA) with residual deficit Chronic UTI- Primary Urinary tract infection, site not specified Primary hypertension ([facility]/HCC)- Primary Unspecified essential hypertension Cerebrovascular accident (CVA), unspecified mechanism ([facility]/HCC) Dizziness and giddiness Overflow incontinence of urine Overflow incontinence CRYSTAL (generalized anxiety disorder) ([facility]/HCC) Generalized anxiety disorder Impaired mobility and activities of daily living Acute diffuse otitis externa of both ears- Primary Primary progressive aphasia (CMS/HCC)- Primary Ataxia Lack of coordination Memory difficulty Memory loss History of ischemic stroke Other insomnia DULCE MARIA (obstructive sleep apnea) Obstructive sleep apnea (adult) (pediatric) Severe episode of recurrent major depressive disorder, without psychotic features (HCC) ([facility]) Severe anxiety documented in this encounter NOMS [...] mechanism (HCC) Atherosclerosis of coronary artery of algaaciq heart, unspecified vessel or lesion type, unspecified [...] disease, unspecified Atherosclerosis of coronary artery of [place]aciq heart, unspecified vessel or lesion type, unspecified [...] essential hypertension Atherosclerosis of coronary artery of [place]q heart, unspecified vessel or lesion type, unspecified [...] mechanism (HCC) Atherosclerosis of coronary artery of [place]aciq heart, unspecified vessel or lesion type, unspecified [...] disease, unspecified Atherosclerosis of coronary artery of [place]q heart, unspecified vessel or lesion type, unspecified [...] essential hypertension Atherosclerosis of coronary artery of [place]q heart, unspecified vessel or lesion type, unspecified [...] maintaining sleep Atherosclerosis of coronary artery of [place]aciq heart, unspecified vessel or lesion type, unspecified [...] mechanism (HCC) Atherosclerosis of coronary artery of algaaciq heart, unspecified vessel or lesion type, unspecified [...] disease, unspecified Atherosclerosis of coronary artery of [place]aciq heart, unspecified vessel or lesion type, unspecified [...] essential hypertension Atherosclerosis of coronary artery of al[place]aciq heart, unspecified vessel or lesion type, unspecified [...] mechanism (HCC) Atherosclerosis of coronary artery of al[place]aciq heart, unspecified vessel or lesion type, unspecified [...] disease, unspecified Atherosclerosis of coronary artery of algaaciq heart, unspecified vessel or lesion type, unspecified [...] essential hypertension Atherosclerosis of coronary artery of algaaciq heart, unspecified vessel or lesion type, unspecified whether angina present CRYSTAL (generalized anxiety disorder) Generalized anxiety disorder Recurrent major depressive disorder, in full remission Episode of recurrent major depressive disorder, unspecified depression episode severity Overflow incontinence of urine Overflow incontinence Psychophysiological insomnia Persistent disorder of initiating or maintaining sleep Peripheral vascular disease, unspecified- Primary Atherosclerosis of coronary artery of algaaciq heart, unspecified vessel or lesion type, unspecified whether angina present Stenosis of carotid artery, unspecified laterality documented in this encounter [facility]* [...] mechanism (HCC) Atherosclerosis of coronary artery of algaaciq heart, unspecified vessel or lesion type, unspecified [...] disease, unspecified Atherosclerosis of coronary artery of algaaciq heart, unspecified vessel or lesion type, unspecified [...] essential hypertension Atherosclerosis of coronary artery of algaaciq heart, unspecified vessel or lesion type, unspecified [...] mechanism (HCC) Atherosclerosis of coronary artery of algaaciq heart, unspecified vessel or lesion type, unspecified [...] disease, unspecified Atherosclerosis of coronary artery of algaaciq heart, unspecified vessel or lesion type, unspecified [...] essential hypertension Atherosclerosis of coronary artery of algaaciq heart, unspecified vessel or lesion type, unspecified [...] mechanism (HCC) Atherosclerosis of coronary artery of algaaciq heart, unspecified vessel or lesion type, unspecified [...] disease, unspecified Atherosclerosis of coronary artery of algaaciq heart, unspecified vessel or lesion type, unspecified [...] essential hypertension Atherosclerosis of coronary artery of algaaciq heart, unspecified vessel or lesion type, unspecified [...] without status migrainosus, not intractableacuteOctober 2024 9:05am [facility] Work Phone: History general Narrative - Reported* Type Description Date Medical History DVT Medical Historyleft MCA strokeMedical Historyaphasia due to CVAMedical History anemiaMedical HistoryHTNMedical HistoryhyperlipidemiaMedical Historydystonia Medical HistorydysphagiaMedical Historytraumatic brain injuryMedical Historyleft lower leg CellulitisSurgical HistorytonsillectomySurgical Historycholecystectomy Surgical HistoryappendectomySurgical Historyknee replacement X 5 rightSurgical Historyknee surgery leftSurgical Historybreast duct removal leftSurgical History Right CEA with patch angioplasty04/06/20Hospitalization HistoryCV Hospitalization HistorychildbirthHospitalization HistoryX2 [id number] [facility] Other Hispvoi general Narrative - Reported* Type Description Date [...] thenar motor branch,03/2021 Hospitalization HistoryCVHospitalization HistorychildbirthHospitalization HistoryX2 [id number] [facility] Other Hospital Discharge instructions Additional Instructions Please call and schedule an appointment with your established 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 We attempted to make this appointment for you but the office was currently unavailable.[facility] Work Phone: Hospital Discharge instructions No data available for this section [facility]InstructionsNot on filedocumented in this encounter [facility]ructionsNot on filedocumented in this encounter [facility] SystemInstructionsNot on filedocumented in this encounter [facility] SystemInstructionsNot on filedocumented in this encounter [facility] SystemInstructionsNot on filedocumented in this encounter [facility] SystemInstructionsNot on filedocumented in this encounter [facility] SystemProgress note No data available for this section [facility] Reason for referral (narrative)* Consultation (Routine) - Pending ReviewSpecialtyDiagnoses / ProceduresReferred By ContactReferred To ContactSpeech Pathology Diagnoses Cerebrovascular accident (CVA), unspecified mechanism (CMS/HCC) Oropharyngeal dysphagia Dysarthria Procedures CO OFFICE/OUTPATIENT NEW HIGH MDM 60 MINUTES Cindy Collado NP [address] [place] [address] Referral IDStatusReasonStart DateExpiration DateVisits RequestedVisits [id number] Review Specialty Services Required / [facility] (narrative)* Consultation (Routine) - Pending ReviewSpecialtyDiagnoses / ProceduresReferred By ContactReferred To Contact Neurology Diagnoses Cerebrovascular accident (CVA), unspecified mechanism (CMS/HCC) Dizziness and giddiness Impaired mobility and activities of daily living Migraine with aura and without status migrainosus, not intractable (CMS/HCC) Procedures CO OFFICE/OUTPATIENT NEW HIGH MDM 60 MINUTES Cindy Collado NP [address] [place] [address] Nakul Zazueta DO [address] [place] [address] Referral IDStatusReasonStart DateExpiration DateVisits RequestedVisits [id number] Review Specialty Services Required / * Consultation (Urgent) - Pending ReviewSpecialtyDiagnoses / ProceduresReferred By ContactReferred To ContactOtolaryngology Diagnoses Oropharyngeal dysphagia Procedures CO OFFICE/OUTPATIENT NEW HIGH MDM 60 MINUTES Cindy Collado, SANDRA [address] [facility] [place] [address] Aime Clark, DO [address] [place] [address] Referral IDStatusReasonStart DateExpiration DateVisits RequestedVisits [id number] Review Specialty Services Required / [facility] (narrative)* Consultation (Routine) - Pending ReviewSpecialtyDiagnoses / ProceduresReferred By ContactReferred To Contact Neurology Diagnoses Rabia Hunt PA-C [address] [place] [address] [address] [place] [address] Martin Arita MD [address] [place] [address], [address], [address], [address] [place] [address] Referral IDStatusReasonStart DateExpiration DateVisits RequestedVisits [id number] Review Specialty Services Required / [facility] (narrative)No reason for referral information available[facility] Work Phone: Reason for visit Narrative* Consultation (Routine) - Pending ReviewSpecialtyDiagnoses / ProceduresReferred By ContactReferred To ContactNeurology Diagnoses Rabia Hunt PA-C [address] [place] [address] [address] [place] [address] Martin Arita MD [address] [place] [address], [address], [address], [address] [place] [address] Referral IDStatusReasonStart DateExpiration DateVisits RequestedVisits [id number] Review Specialty Services Required / [facility]Reason for [facility] Narrative* Consultation (Routine) - ClosedSpecialtyDiagnoses / ProceduresReferred By ContactReferred To Contact Neuropsychology Diagnoses Expressive aphasia Memory difficulty History of ischemic stroke Procedures CO OFFICE/OUTPATIENT [facility] 60 MINUTES Jameson Mcleod NP [address] [place] [address] Phone: tel: Chaim Hare, PhD [address] [place] [address] Phone: tel: fax: Referral IDStatusReasonStart DateExpiration DateVisits RequestedVisits [id number] Specialty Services Required / [facility] Healthcare Summary Purpose Family History No Family History [...] UnknownFamily history of lung cancerUnknown Advance Directives No Advanced Directives Records Found [...] Referral SpecialtyDiagnoses / ProceduresReferred By ContactReferred To [facility] Diagnoses Dizzy Functional gait disorder Martin Arita MD [facility], [address], [address], [address] [place] [address] [facility] [address] [place] [address] Phone: [phone] Fax: [phone] Referral IDStatusReasonStart DateExpiration DateVisits RequestedVisits [id number] Review Additional Source Comments INFORMATION SOURCE (unrecogn ized section and content) DATE CREATED AUTHOR 03/09/2020 [facility] DATE CREATED AUTHOR AUTHOR'S ORGANIZ ATION 12/03/2021 [facility] DATE CREATED AUTHOR AUTHOR'S ORGANIZ ATION 02/28/2022 [facility] DATE CREATED AUTHOR AUTHOR'S ORGANIZ ATION 05/13/2023 [facility] DATE CREATED AUTHOR AUTHOR'S ORGANIZ ATION 07/04/2023 [facility] DATE CREATED AUTHOR AUTHOR'S ORGANIZ ATION 07/16/2023 [facility] DATE CREATED AUTHOR AUTHOR'S ORGANIZ ATION 07/18/2023 [facility] DATE CREATED AUTHOR AUTHOR'S ORGANIZ ATION 02/26/2024 [facility] DATE CREATED AUTHOR AUTHOR'S ORGANIZ ATION 04/05/2024 [facility] DATE CREATED AUTHOR AUTHOR'S ORGANIZ ATION 04/17/2024 [facility] DATE CREATED AUTHOR AUTHOR'S ORGANIZ ATION 05/06/2024 [facility] DATE CREATED AUTHOR AUTHOR'S ORGANIZ ATION 05/08/2024 [facility] DATE CREATED AUTHOR AUTHOR'S ORGANIZ ATION 07/01/2024 [facility] DATE CREATED AUTHOR AUTHOR'S ORGANIZ ATION 07/09/2024 [facility] DATE CREATED AUTHOR AUTHOR'S ORGANIZ ATION 07/24/2024 [facility] DATE CREATED AUTHOR AUTHOR'S ORGANIZ ATION 08/07/2024 [facility] DATE CREATED AUTHOR AUTHOR'S ORGANIZ ATION 08/12/2024 [facility] DATE CREATED AUTHOR AUTHOR'S ORGANIZ ATION 09/19/2024 [facility] DATE CREATED AUTHOR AUTHOR'S ORGANIZ ATION 10/10/2024 [facility] DATE CREATED AUTHOR AUTHOR'S ORGANIZ ATION 11/19/2024 [facility] DATE CREATED AUTHOR AUTHOR'S ORGANIZ ATION 11/25/2024 [facility] DATE CREATED AUTHOR AUTHOR'S ORGANIZ ATION 11/26/2024 [facility] DATE CREATED AUTHOR AUTHOR'S ORGANIZ ATION 12/24/2024 [facility] REASON FOR VISIT (unrecogniz ed section and content) ReasonCommentsOropharyngeal DysphagiaNew Patient : Oropharyngeal Dysphagia SpecialtyDiagnoses / ProceduresReferred By ContactReferred To Contact Otolaryngology Diagnoses Oropharyngeal dysphagia Procedures CO OFFICE/OUTPATIENT NEW HIGH MDM 60 MINUTES Cindy Collado, SANDRA [address] [place] [address] Phone: tel: fax: Aime Clark, DO [address] [place] [address] Phone: tel: fax: Referral IDStatusReasonStart DateExpiration DateVisits RequestedVisits [id number] Specialty Services Required /[id number] DateCommentsMed Ccrmaz154ReasonComments Oropharyngeal dysphagiaReasonOnset LiodEgapitgnzajbxfuvy42/14/2023ReasonOnset DateCommentsoffice notes4ReasonOnset DateCommentsNEW PATIENT REFERRAL 4ReasonOnset DateCommentsSooner Appt4ReasonOnset DateComments Aflbhviaobl81/22/2024ReasonCommentsHypertensionReasonCommentsBalance difficulty Memory LossReasonOnset DateCommentsMed Eotaul7208/12/2024ReasonOnset DateComments Med Inygbt6909/28/2024 Care Teams (unrecognized sec tion and content) Team Status: Active Member Role Status Reid Day MD Primary Care Provider Active Team Status: Inactive Member Role Status Reid Day MD Primary Care Provide r, Attending Provider Active Start: January 21, 2023 End: January 21, 2023 Team Status: Inactive Member Role Status Reid Day MD Primary Care Provider Active Andre Gallo ProviderActive Team Status: Inactive Member Role Status Reid Day MD Primary Care Provider Active Andre Garcia ProviderActive Team Status: Active Member Role Status Dates Gerry Godwin MD Primary Care Provider Active Andre Costa ProviderActive Team Status: Active Member Role Status Reid Day MD Primary Care Provider Active Marck Vazquez ProviderActiveAshleigh Cruz , MDAdmmarlene Provider, Attending ProviderActiveShira Castañeda RNOther ProviderActiveW Filippo Cain ProviderActiveBetito Arellano MDOther ProviderActive Aneesh Zendejas MDOther ProviderActiveShavon Leos MDOther ProviderActiveBrayan Ribera MDOther ProviderActiveDonamisha Brown APRNOther ProviderActiveShefali Garibay MDOther ProviderActiveMohammarcell Nava MDOther ProviderActiveAlissa Young MDOther ProviderActiveMIRANDA PegnP-BCOther ProviderActive Team Status: Inactive Member Role Status Reid Day MD Primary Care Provider Active Marck Vazquez ProviderActiveAshleigh Cruz , MDAdmit ProviderActiveAndre Cosby ProviderActive Team Status: Inactive Member Role Status Dates Gerry Godwin MD Primary Care Provider Active Andre Costa ProviderActive Team Status: Inactive Member Role Status Reid Day MD Primary Care Provider Active Earline Fawn Benjamin ProviderActiveTeam MemberRelationshipSpecialty Start DateEnd Shaikh Love MD [facility]30[facility]22 Team Status: Inactive Member Role Status Reid Day MD Primary Care Provider Active Start: April 09, 2023 End: April 09, 2023Isela Galloending ProviderActiveStart: April 09, 2023 End: April 09, 2023 Team Status: Inactive Member Role Status Reid Day MD Primary Care Provider Active Start: April 09, 2023 End: April 09, 2023Felicita Sumner NP-Oriana ProviderActiveStart: April 09, 2023 End: April 09, [...] Start: May 09, 2023 End: May 09, 2023Isela Galloending ProviderActiveStart: May 09, 2023 End: May 09, 2023 Team Status: Inactive Member Role Status Reid Day MD Primary Care Provider Active Start: May 11, 2023 End: May 10Gaby Ngo ProviderActiveStart: May 11, 2023 End: May 11, 2023 Team Status: Inactive Member Role Status ANA SamuelsC Attending Provider Active S tart: May 12, 2023 End: May 12, 2023 Team Status: Inactive Member Role Status Dates Hannah Still NP-C Attending Provider Active S tart: May 12, 2023 End: May 12, 2023Milo Costa Care ProviderActiveStart: May 12, 2023 End: May 12, 2023 Team Status: Inactive Member Role Status Dates Shaikh Barb MD Primary Care Provider Active Start: August 08, 2023 End: August 08, 2023Denver Juarez MDAttgilberto ProviderActiveStart: August 08, 2023 End: August 08, 2023 Team Status: Active Member Role Status Dates Shaikh Barb MD Primary Care Provider Active Start: August 08, 2023 Felicita Sumner RAIL SPECIALIST-CAttending ProviderActiveStart: August 08, 2023 Team Status: Inactive Member Role Status Dates Shaikh Barb MD Primary Care Provider Active Start: August 08, 2023 End: August 08, 2023Felicita Sumner RAIL SPECIALIST-CAttending ProviderActiveStart: August 08, 2023 End: August 08, 2023Team MemberRelationshipSpecialtyStart DateEnd Date Gerry Godwin MD [address] [place] [address] PCP - GeneralFamily Medicine10/03/23 Shaikh Day MD [address] [place] [address] PCP - [place]10/13/23 Cindy Collado NP [address] [place] [address] Nurse PractitionerFamily Medicine10/03/23Team MemberRelationshipSpecialtyStart DateEnd Date Gerry Godwin MD [address] [place] [address] [facility]10/03/23 Shaikh Day MD [address] [place] [address] PCP - [place]10/13/23 Cindy Collado, SANDRA [address] [place] [address] Nurse PractitionerAt[facility]10/03/23Team MemberRelationshipSpecialtyStart DateEnd Date Gerry Godwin MD [address] [place] [address] PCP - [facility]10/03/23 Shaikh Day MD [address] [place] [address] PCP - [place]10/13/23 Cindy Collado, RAIL SPECIALIST [address] [place] [address] [facility]10/03/23 Aime Clark DO [address] [place] [address] Pylbwsnttcuard17/21/24Team MemberRelationshipSpecialtyStart DateEnd Date Gerry Godwin MD [address] [place] [address] PCP - GeneralFamily Medicine10/03/23 Shaikh Day MD [address] [place] [address] PCP - [place]10/13/23 Cindy Collado, RAIL SPECIALIST [address] [place] [address] Nurse PractitionerFamily Medicine10/03/23 Aime Clark DO [address] [place] [address] Geikllaurwlsym85/21/24Team MemberRelationshipSpecialtyStart DateEnd Date Gerry Godwin MD [address] [place] [address] [facility] - [facility]10/03/23 Shaikh Day MD [address] [place] [address] PCP - [place]10/13/23 Cindy Collado, RAIL SPECIALIST [address] [place] [address] Nurse [facility] Medicine10/03/23 Aime Clark DO [address] [place] [address] Cfmtekarflmhgb51/21/24Team MemberRelationshipSpecialtyStart DateEnd Date Fawwad, Kam, MD [address] [place] [address] PCP - [place] ZARCO10/13/23 Unallocated, Nomsvitlana Nichole MD [address] [place] [address] PCP - GeneralFamily Xtrqgcox52/22/24 Cindy Collado NP [address] [place] [address] Nurse PractitionerFami Medicine10/03/23 Aime Clark DO [address] [facility] [place] [address] Zzofjhomoprcri55/21/24 Nakul Zazueta DO [address] [address] Referring XgompdtxfRdipqpkml78/28/24 Ynes Snyder NP [address] [address] Nurse FwqrovzbelbbOiydgusxk40/28/24 Jameson Mcleod NP [address] [address] Nurse DowlkzfqetihVhukgqqgg84/28/24 Team Status: Inactive Member Role Status Dates Shaikh Barb MD Primary Care Provider Active Start: December 12, 2023 End: December 11abilio Clark DOAttending ProviderActiveStart: December 12, 2023 End: December 12, 2023Team MemberRelationshipSpecialtyStart DateEnd Date Gerry Godwin MD [address] [place] [address] PCP - GeneralFamnly [facility]10/03/23 Cindy Collado, SANDRA [address] [place] [address] Nurse PractitionerAt[facility]10/03/23Team MemberRelationshipSpecialtyStart DateEnd Date Gerry Godwin MD [address] [place] [address] PCP - [facility]10/03/23 Cindy Collado, SANDRA [address] [place] [address] Nurse PractitionerAt[facility]10/03/23Team MemberRelationshipSpecialtyStart DateEnd Date Gerry Godwin MD [address] [place] [address] PCP - [facility]10/03/23 Cindy Collado, SANDRA [address] [place] [address] Nurse PractitionerAt[facility]10/03/23Team MemberRelationshipSpecialtyStart DateEnd Date Shaikh Day MD [address] [place] [address] PCP - [place]10/13/23 Gerry Godwin MD [address] [place] [address] PCP - GeneralFamnly Xwaxjzqn18/31/24 Cindy Collado NP [address] [place] [address] Nurse PractitionerFamily Medicine10/03/23 Aime Clark DO [address] [place], [place] [address] Ldhvhobzzibdec98/21/24 Nakul Zazueta DO [address] [address] Referring JlxsmswteWvmqqoftn02/28/24 Ynes Snyder NP [address] [address] Nurse NohunkltewicMwuaeyruj53/28/24 Jameson Mcleod NP [address] [address] Nurse QosurtlrbpsaXaouvinbk91/28/24Team MemberRelationshipSpecialtyStart DateEnd Date Shaikh Day MD [address] [place] [address] PCP - [facility]10/13/23 Gerry Godwin MD [address] [place] [address] PCP - GeneralFamily Snlobpds07/31/24 Cindy Collado, RAIL SPECIALIST [address] [place] [address] Nurse PractitionerFamily Medicine10/03/23 Aime Clark DO [address] [place] [address] Bfmigvqoewxjkn07/21/24 Nakul Zazueta DO [address] [address] Referring XrjcgqfcwKlriidvef21/28/24 Ynes Snyder NP [address] [address] Nurse CkdwglcfdeseYetgxvqei67/28/24 Jameson Mcleod NP [address] [address] Nurse DghnoruexompZlkwfgqax75/28/24Team MemberRelationshipSpecialtyStart DateEnd Date Shaikh Day MD [address] [place] [address] PCP - [place]10/13/23 Gerry Godwin MD [address] [place] [address] PCP - GeneralFamily Hajisnfb63/31/24 Cindy Collado, SANDRA [address] [place] [address] Nurse PractitionerFamily Medicine10/03/23 Aime Clark DO [address] [place] [address] Dvsyiobdkusjml11/21/24 Nakul Zazueta DO [address] [address] Referring UfkirfzqhWisevfcdl87/28/24 Ynes Snyder NP [address] [address] Nurse RbhlfgrglzorWebvpbwns96/28/24 Jameson Mcleod NP [address] [address] Nurse ImxywstmnuyoHkbwbssti88/28/24 Milton Piña MA Family Zukawgik08/10/24Team MemberRelationshipSpecialtyStart DateEnd Date Shaikh Day MD [address] [place] [address] PCP - [place]10/13/23 Gerry Godwin MD [address] [place] [address] PCP - GeneralFamily Mvytcdxj55/31/24 Cindy Collado NP [address] [place] [address] Nurse PractitionerFamily Medicine10/03/23 Aime Clark DO [address] [place] [place] [address] Uwpphjzbayqamu47/21/24 Nakul Zazueta DO [address] [address] Referring NpzsoysgwGhikjdhsg89/28/24 Ynes Snyder NP [address] [address] Nurse ZcqfpdfvhrwpGgaxpdhhz99/28/24 Jameson Mcleod NP [address] [address] Nurse JuuuyspflxqyIsmsjdfnw99/28/24 Milton Piña MA [facility]01/21/24Team MemberRelationshipSpecialtyStart DateEnd Date Gerry Godwin MD [address] [place] [address] PCP - GeneralFamily Medicine10/03/23 Cindy Collado NP [address] [place] [address] Nurse PractitionerFamily Medicine10/03/23Team MemberRelationshipSpecialtyStart DateEnd Date Gerry Godwin MD [address] [place] [address] PCP - GeneralFamily Medicine10/03/23 Cindy Collado NP [address] [place] [address] Nurse PractitionerAt[facility]10/03/23Team MemberRelationshipSpecialtyStart DateEnd Date Gerry Godwin MD [address] [place] [address] PCP - [facility]10/03/23 Cindy Collado, SANDRA [address] [place] [address] Nurse PractitionerAt[facility]10/03/23 Team Status: Inactive Member Role Status Dates Shaikh Barb MD Primary Care Provider Active Start: February 20, 2024 End: February 20, 2024Denver Juarez MDAttending ProviderActiveStart: February 20, 2024 End: February 20, 2024Team MemberRelationshipSpecialtyStart DateEnd Date Shaikh Day MD [address] [place] [address] PCP - [place]10/13/23 Gerry Godwin MD [address] [place] [address] PCP - GeneralAt[facility]12/12/23 Cindy Collado, SANDRA [address] [place] [address] Nurse PractitionerAt[facility]10/03/23 Aime Clark DO [address] [place] [address] Mlodysxbesywcs60/21/24 Nakul Zazueta DO [address] [address] Referring WdxkmthlqJtauxqjav50/28/24 Ynes Snyder NP [address] [address] Nurse CjinnvgsnxfkPkkmuapdq20/28/24 Jameson Mcleod NP [address] [address] Nurse PglytrnbieqbUhtcrfdri90/28/24 Milton Piña MA [facility]01/21/24Team MemberRelationshipSpecialtyStart DateEnd Date Gerry Godwin MD [address] [place] [address] PCP - GeneralFamily Medicine04/07/18Team MemberRelationshipSpecialtyStart DateEnd Date Gerry Godwin MD [address] [place] [address] PCP - GeneralFamily Medicine04/07/18Team MemberRelationshipSpecialtyStart DateEnd Date Gerry Godwin MD [address] [place] [place] [address] PCP - GeneralFamily Medicine04/07/18Team MemberRelationshipSpecialtyStart DateEnd Date Gerry Godwin MD [address] [place] [address] PCP - GeneralFamily Medicine04/07/18Team MemberRelationshipSpecialtyStart DateEnd Date Gerry Godwin MD [address] [place] [address] PCP - GeneralFamily Medicine04/07/18Team MemberRelationshipSpecialtyStart DateEnd Date Gerry Godwin MD [address] [facility] [place] [address] PCP - GeneralFamily Medicine04/07/18Team MemberRelationshipSpecialtyStart DateEnd Date Gerry Godwin MD [address] [facility] [place] [address] PCP - GeneralFamily Medicine04/07/18Team MemberRelationshipSpecialtyStart DateEnd Date Gerry Godwin MD [address] [facility] [place] [address] PCP - GeneralFamily Medicine04/07/18Team MemberRelationshipSpecialtyStart DateEnd Date Gerry Godwin MD [address] [place] [address] PCP - GeneralFamily Yqqouiot52/31/24 Cindy Collado, SANDRA [address] [place] [address] PCP - [place] MA03/14/24 Cindy Collado NP [address] [place] [address] Nurse PractitionerFamily Medicine10/03/23 Aime Clark, DO [address] [place] [address] Ibzyfbujnawsct84/21/24 Nakul Zazueta DO [address] [address] Referring DpjjammszAfymdilij98/28/24 Ynes Snyder NP [address] [address] Nurse ExirfmjqhvsoSkhgpjszl99/28/24 Jameson Mcleod NP [address] [address] Nurse GvofovnqnyejCvcamqqsq39/28/24 Milton Piña MA Family Rybviyki46/10/24Team MemberRelationshipSpecialtyStart DateEnd Date Gerry Godwin MD [address] [place] [address] PCP - GeneralFamily Pqrcpuge07/31/24 Cindy Collado NP [address] [place] [address] PCP - [place]03/14/24 Cindy Collado NP [address] [place] [address] Nurse PractitionerFamily Medicine10/03/23 Aime Clark DO [address] [place] [address] Kclaeudttysguk40/21/24 Nakul Zazueta DO [address] [address] Referring JuhjssyadNdcdmukjx36/28/24 Ynes Snyder, SANDRA [address] [address] Nurse DorrndaqxahtJfwkzdxgj63/28/24 Jameson Mcleod NP [address] [address] Nurse UcluwnbysnqpUanoaqsnw88/28/24 Milton Piña MA Family Vhkmwoqg21/10/24Team MemberRelationshipSpecialtyStart DateEnd Date Gerry Godwin MD [address] [place] [address] PCP - Generalmily Uzsuvcoe37/31/24 Gerry Godwin MD [address] [place] [address] PCP - [facility]04/11/24 Cindy Collado NP [address] [place] [address] Nurse PractitionerFamily Medicine10/03/23 Aime Clark DO [address] [place] [address] Wtgyjxwsultxwb73/21/24 Nakul Zazueta DO [address] [address] Referring OkalyuychVjdbcfajn94/28/24 Ynes Snyder NP [address] [address] Nurse AghkqqpmhdrcEpzlfjzst59/28/24 Jameson Mcleod NP [address] [address] Nurse ByyieiimtdxmFhiakqwqh36/28/24 Milton Piña MA [facility] Kyhdcavl56/10/24Team MemberRelationshipSpecialtyStart DateEnd Date Gerry Godwin MD [address] [place] [address] PCP - GeneralFamily Xgajhlvu39/31/24 Gerry Godwin MD [address] [place] [address] PCP - [facility]04/11/24 Cindy Collado NP [address] [place] [address] Nurse PractitionerFamily Medicine10/03/23 Aime Clark DO [address] [place] [address] Iqdmmlvoltgdjd91/21/24 Nakul Zazueta DO [address] [address] Referring FzgikujseNfowzxumc68/28/24 Ynes Snyder, SANDRA [address] [address] Nurse OqywqertdtduRgrsqkirv94/28/24 Jameson Mcleod NP [address] [address] Nurse DiizguzxqxkqEcwglelnr28/28/24 Milton Piña MA Family Vksoulex66/10/24Team MemberRelationshipSpecialtyStart DateEnd Date Gerry Godwin MD [address] [place] [address] PCP - GeneralFamily Npsqncnb88/31/24 Gerry Godwin MD [address] [place] [address] PCP - [facility]04/11/24 Cindy Collado NP [address] [place] [address] Nurse PractitionerFamily Medicine10/03/23 Aime Clark DO [address] [place] [address] Mctlycnnrlhonh27/21/24 Nakul Zazueta DO [address] [address] Referring HeoxnysgzDqgbipfrb32/28/24 Ynes Snyder, SANDRA [address] [place] [address], [place] [address] Nurse QsybziergcjdWzbkkxeue78/28/24 Jameson Mcleod, SANDRA [address] [address] Nurse CzainduoqtuwJjzqiexic40/28/24 Milton Piña MA Family Ewjxgdcb26/10/24Team MemberRelationshipSpecialtyStart DateEnd Date Gerry Godwin MD [address] [place] [address] PCP - Generalmily Wpfivibq74/31/24 Gerry Godwin MD [address] [place] [address] PCP - [facility]04/11/24 Cindy Collado NP [address] [place] [address] Nurse PractitionerFami Medicine10/03/23 Aime Clark DO [address] [place] [address] Tcxxqgrvicqiqn78/21/24 Nakul Zazueta DO [address] [address] Referring XpulzskphTmmtehnma86/28/24 Ynes Snyder NP [address] [address] Nurse LqlohrdosfyxXnjstmfaj16/28/24 Jameson Mcleod, SANDRA [address] [address] [place] [address] Nurse WyqykjwraegxIhnjsjrhp55/28/24 Milton Piña MA Family Oruwpwms15/10/24Team MemberRelationshipSpecialtySthill afb DateEnd Date Gerry Godwin MD [address] [place] [address] PCP - Generalmily Ixgjqcfp43/31/24 Gerry Godwin MD [address] [place] [address] PCP - [facility]04/11/24 Cindy Collado NP [address] [place] [address] Nurse PractitionerFamily Medicine10/03/23 Aime Clark DO [address] [place] [address] Qezcazqoehzega26/21/24 Nakul Zazueta DO [address] [address] Referring IzrrsxxeiWaszwbyep17/28/24 Ynes Snyder NP [address] [place] [address] Nurse LbcpexltkjewZrlquocvq21/28/24 Jameson Mcleod NP [address] [place] [address] Nurse XvvufnkgrjkvPfpiiszgn53/28/24 Milton Piña MA [facility]01/21/24Team MemberRelationshipSpecialtyStart DateEnd Date Gerry Godwin MD [address] [place] [address] PCP - GeneralFamnly Shnribeo08/31/24 Gerry Godwin MD [address] [place] [address] PCP - [facility]04/11/24 Cindy Collado NP [address] [place] [address] Nurse PractitionerFamily Medicine10/03/23 Aime Clark DO [address] [place] [address] Hnfnyhupvgqajl10/21/24 Nakul Zazueta DO [address] [address] Referring BemejiozjSjgtkrakr13/28/24 Ynes Snyder NP [address] [address] Nurse VnoqimavmmgwGvbqgpkhm29/28/24 Jameson Mcleod NP [address] [address] Nurse RvuvnhkkdsjiWymdpxsta13/28/24 Milton Piña MA [facility]01/21/24Team MemberRelationshipSpecialtyStart DateEnd Date Gerry Godwin MD [address] [place] [address] PCP - GeneralFamily Vwsmluty09/31/24 Gerry Godwin MD [address] [place] [address] PCP - [place]04/11/24 Cindy Collado NP [address] [place] [address] Nurse PractitionerFamily Medicine10/03/23 Aime Clark DO [address] [place] [address] Nyirvrbelkjqxj80/21/24 Nakul Zazueta DO [address] [address] Referring IuxyrepfvXwtbjcrxq62/28/24 Ynes Snyder NP [address] [address] Nurse HiptrocramuuUughqtnbm31/28/24 Jameson Mcleod NP [address] [address] Nurse ZaarruazcewpNhgmmdztm08/28/24 Milton Piña MA Family Kvtmtqhc07/10/24Team MemberRelationshipSpecialtyStart DateEnd Date Gerry Godwin MD [address] [place] [address] PCP - GeneralFamily Mfdaeeeu24/31/24 Cindy Collado, RAIL SPECIALIST [address] [place] [address] Nurse PractitionerFamily Medicine10/03/23 Aime Clark, DO [address] [place] [address] Dmjinldunqxqpa29/21/24 Nakul Zazueta DO [address] [address] Referring CljzhdcbaHdosrvnmr73/28/24 Ynes Snyder NP [address] [address] Nurse GedlkprqysgeAyatrvuac54/28/24 Jameson Mcleod NP [address] [address] Nurse GqxtnmubtoheLqlzjlquv26/28/24 Milton Piña MA Family Syuxkxsu78/10/24Team MemberRelationshipSpecialtyStart DateEnd Date Gerry Godwin MD [address] [place] [address] PCP - GeneralFamily Ujubippd30/31/24 Cindy Collado, SANDRA [address] [address] Nurse PractitionerFamily Medicine10/03/23 Aime Clark, DO [address] [place] [address] Dikjzhihgkcmqi10/21/24 Nakul Zazueta DO [address] [address] Referring IjzmytnjpOkddanueo15/28/24 Ynes Snyder, SANDRA [address] [place] [address] Nurse EoymwvnfernxGzemmxeyx67/28/24 Jameson Mcleod NP [address] [address] Nurse HixtxgktxtpiOljyinoup44/28/24 Milton Piña MA Family Pdltroza41/10/24Team MemberRelationshipSpecialtyStart DateEnd Date Gerry Godwin MD [address] [place] [address] PCP - GeneralFamily Wnabpemj32/31/24 Cindy Collado NP [address] [place] [address] Nurse PractitionerFamily Medicine10/03/23 Aime Clark DO [address] [place] [address] Vclbhnovfbayrw76/21/24 Nakul Zazueta DO [address] [address] Referring PzeumsimsXkmypbjdi27/28/24 Ynes Snyder, SANDRA [address] [place] [address] Nurse MackwpjqxkyaGnlzponft77/28/24 Jameson Mcleod, SANDRA [address] [address] [place] [address] Nurse RgzzszvnfwzlMhzeazvgw81/28/24 Milton Piña MA [facility]01/21/24Team MemberRelationshipSpecialtyStart DateEnd Date Gerry Godwin MD [address] [place] [address] PCP - GeneralFamily Qrkqihld90/31/24 Cindy Collado NP [address] [place] [address] Nurse PractitionerFamily Medicine10/03/23 Aime Clark DO [address] [place], [place] [address] Zmhwaadbmivars48/21/24 Nakul Zazueta DO [address] [address] [place] [address] Referring CjlwkyvzjCauvijakb66/28/24 Ynes Snyder NP [address] [address] [place] [address] Nurse VyffuhziebadPfzwbaskr78/28/24 Jameson Mcleod, SANDRA [address] [address] [place] [address] Nurse RzxhurrdauqfHygtchjnx25/28/24 Milton Piña MA [facility]01/21/24Team MemberRelationshipSpecialtyStart DateEnd Date Gerry Godwin MD [address] [place] [address] PCP - GeneralFamnly Rpbcxrfn97/31/24 Gerry Godwin MD [address] [place] [address] PCP - [place]04/11/24 Cindy Collado NP [address] [place] [address] Nurse PractitionerFasaint joseph's [facility] Medicine10/03/23 Aime Clark DO [address] [place] [address] Grsomurkvwyrsv33/21/24 Nakul Zazueta DO [address] [address] Referring KzxjaijjhJkqftmnxe62/28/24 Ynes Snyder NP [address] [address] Nurse SmtzfglrcxojZmfmjklbr41/28/24 Jameson Mcleod NP [address] [address] Nurse ZxpybvwnbdlwSornvpjps28/28/24 Milton Piña MA [address] [place] [address] Family Ebsgoxob98/10/24Team MemberRelationshipSpecialtyStart DateEnd Date Gerry Godwin MD [address] [place] [address] PCP - GeneralFamily Yeocbpzb50/31/24 Gerry Godwin MD [address] [place] [address] PCP - [place]04/11/24 Cindy Collado NP [address] [place] [address] Nurse PractitionerFamily Medicine10/03/23 Aime Clark DO [address] [place] [address] Xirngtgsfepitr97/21/24 Nakul Zazueta DO [address] [address] Referring TsbraszwgPbmwtgyak16/28/24 Ynes Snyder NP [address] [address] Nurse WdztupmvtxxkIyznterkh49/28/24 Jameson Mcleod NP [address] [address] Nurse SrinqvlzmoypCkipgztlu34/28/24 Milton Piña, HAROLDO [address] [place] [address] Family Sjnkbdzc97/10/24Team MemberRelationshipSpecialtyStart DateEnd Date Gerry Godwin MD [address] [place] [address] PCP - GeneralFamily Eylizseo96/31/24 Gerry Godwin MD [address] [place] [address] PCP - [place]04/11/24 Cindy Collado NP [address] [place] [address] Nurse PractitionerFamily Medicine10/03/23 iAme Clark DO [address] [place] [address] Tfmaifqmjiusaa22/21/24 Nakul Zazueta DO [address] [address] Referring XybmqvhzuTvjhotfpf71/28/24 Ynes Snyder NP [address] [address] Nurse HpksbsoqpdoaZzfjfkkkl08/28/24 Jameson Mcleod NP [address] [address] Nurse VfrbhqxvuxaqWjuvutlqg84/28/24 Milton Piña, HAROLDO [address] [place] [address] Family Amiygyov19/10/24Team MemberRelationshipSpecialtyStart DateEnd Date Gerry Godwin MD [address] [place] [address] PCP - GeneralFamily Awgfirpu82/31/24 Gerry Godwin MD [address] [place] [address] PCP - [place] ZARCO04/11/24 Cindy Collado, SANDRA [address] [place] [address] Nurse PractitionerFamily Medicine10/03/23 Aime Clark DO [address] [place] [address] Ficozrpdcwgvgq76/21/24 Nakul Zazueta DO [address] [address] Referring KiirduzuzXpljcqypi07/28/24 Ynes Snyder, SANDRA [address] [address] Nurse ExdfrkkzikyxHiqqlgubp53/28/24 Jameson Mcleod NP [address] [address] Nurse VobkypivkbucIdwpxjzbf48/28/24 Milton Piña MA [address] [place] [address] Family Tenzmoto51/10/24Team MemberRelationshipSpecialtyStart DateEnd Date Gerry Godwin MD [address] [place] [address] PCP - GeneralFamily Plbcqpsu78/31/24 Gerry Godwin MD [address] [place] [address] PCP - [place] ZARCO04/11/24 Cindy Collado NP [address] [place] [address] Nurse PractitionerFamily Medicine10/03/23 Aime Clark DO [address] [place] [address] Tlmzqbladugrbk87/21/24 Nakul Zazueta DO [address] [address] Referring SxwfagqhbQtxvduzdz39/28/24 Ynes Snyder NP [address] [address] Nurse NpfidszxkohuXxcqytjyt28/28/24 Jameson Mcleod NP [address] [address] Nurse QsfqyzbttgsrJhfrabosd86/28/24 Mliton Piña MA [address] [place] [address] Family Xcgifiqn83/10/24 Team Status: Active Member Role Status Dates Cindy Collado Primary Care Provider Active Team Status: Inactive Member Role Status Dates EVI Dao Attending Provider Active Start: August 13, 2024 End: August 13, 2024Cindy ColladoPrimary Care ProviderActiveStart: August 13, 2024 End: August 13, 2024Team MemberRelationshipSpecialtyStart DateEnd Date Gerry Godwin MD [address] [place] [address] PCP - GeneralFamily Wiuoqcxj48/31/24 Gerry Godwin MD [address] [place] [address] PCP - [place]04/11/24 Cindy Collado NP [address] [place] [address] Nurse PractitionerFami Medicine10/03/23 Aime Clark DO [address] [place] [address] Vtnvkrjwdqwcmz26/21/24 Nakul Zazueta DO [address] [address] Referring NhlkalhjkYxrfztkqx36/28/24 Ynes Snyder NP [address] [address] Nurse LaufimqrbokoOygloahbj95/28/24 Jameson Mcleod NP [address] [address] Nurse YqmhkkemricbRmfgjliim45/28/24 Milton Piña MA [address] [place] [address] Family Uimdlcze37/10/24Team MemberRelationshipSpecialtyStart DateEnd Date Gerry Godwin MD [address] [place] [address] PCP - GeneralFamily Qfdahgoz31/31/24 Gerry Godwin MD [address] [place] [address] PCP - [place]04/11/24 Cindy Collado, ASNDRA [address] [place] [address] Nurse PractitionerFamily Medicine10/03/23 Aime Clark DO [address] [place] [address] Udmijkaqnxnhvz67/21/24 Nakul Zazueta DO [address] [address] Referring DvyhfolspSsjesanoy74/28/24 Ynes Snyder, SANDRA [address] [address] Nurse YuunsqatfpczSeewhbanm09/28/24 Jameson Mcleod NP [address] [address] Nurse XvoukcpwclggAwaicyrol83/28/24 Milton Piña, HAROLDO [address] [place] [address] Family Sgzczyam97/10/24Team MemberRelationshipSpecialtyStart DateEnd Date Gerry Godwin MD [address] [place] [address] PCP - GeneralFamily Rjiduinp24/31/24 Gerry Godwin MD [address] [place] [address] PCP - [place]04/11/24 Cindy Collado, SANDRA [address] [place] [address] Nurse PractitionerFamily Medicine10/03/23 Aime Clark, DO [address] [place] [address] Tkkcglozlgstgz78/21/24 Nakul Zazueta DO [address] [address] Referring WdwvtmmtcLrygkbtuv61/28/24 Ynes Snyder NP [address] [address] Nurse JilmskpxypcwOrfwczudi14/28/24 Jameson Mcleod NP [address] [address] Nurse FjfffaautbnkBdzyuzcxd27/28/24 Milton Piña, HAROLDO [address] [place] [address] Family Gkovnhcj25/10/24Team MemberRelationshipSpecialtyStart DateEnd Date Gerry Godwin MD [address] [place] [address] PCP - GeneralFamily Dorxvaii41/31/24 Gerry Godwin MD [address] [place] [address] PCP - [place] ZARCO04/11/24 Cindy Collado NP [address] [place] [address] Nurse PractitionerFamily Medicine10/03/23 Aime Clark DO [address] [place], [place] [address] Jwsuyzmvlkrxrs01/21/24 Nakul Zazueta DO [address] [address] Referring WzxvdlxcfAadpnlbws80/28/24 Ynes Snyder, SANDRA [address] [address] Nurse VodrkjzcvmdnMvhsdrsmg84/28/24 Jameson Mcleod NP [address] [address] Nurse QmfudomfbqlwVcubmzqxc20/28/24 Milton Piña IA [address] [place] [address] Family Yhkolwyf81/10/24Team MemberRelationshipSpecialtyStart DateEnd Date Gerry Godwin MD [address] [place] [address] PCP - GeneralFamily Btomobcl67/31/24 Gerry Godwin MD [address] [place] [address] PCP - [place] ZARCO04/11/24 Cindy Collado NP [address] [place] [address] Nurse PractitionerFamily Medicine10/03/23 Aime Clark DO [address] [place] [address] Tfsytfdaykkkom04/21/24 Nakul Zazueta DO [address] [address] Referring ThpneseqnFpaxrpnce52/28/24 Ynes Snyder NP [address] [address] Nurse TwepqvbkzrljDuilemwjk52/28/24 Jameson Mcleod NP [address] [address] Nurse GciaawynbfncQlhegbhnj41/28/24 Milton Piña MA [address] [place] [address] Family Vnfsbeff54/10/24 Team Status: Active Member Role Status Dates Cindy Collado NP-C Primary Care Provider Active Team Status: Active Member Role Status Dates Cindy Collado NP-Pedro Primary Care Provider Active Start: November 24, 2024 Cindy Collado NP-CAttending ProviderActiveStart: November 24, 2024 Team Status: Inactive Member Role Status Dates Cindy Collado NP-C Primary Care Provider Active Start: November 26, 2024 End: November 26, 2024Cindy Collado , RAIL SPECIALIST-CAttending ProviderActiveStart: November 26, 2024 End: November 26, 2024 Team Status: Active Member Role/Relationship Status Dates Cindy Collado , RAIL SPECIALIST-C Primary Care Provider Active Team Status: Active Member Role/Relationship Status Dates Cindy Collado , RAIL SPECIALIST-C Primary Care Provider Active Start: November 24, 2024 Cindy Collado , RAIL SPECIALIST-CAttending ProviderActiveStart: November 24, 2024 Team Status: Inactive Member Role/Relationship Status Dates Cindy Collado , RAIL SPECIALIST-C Primary Care Provider Active Start: November 26, 2024 End: November 26, 2024Cindy Collado , RAIL SPECIALIST-CAttending ProviderActiveStart: November 26, 2024 End: November 26, 2024 Team Status: Inactive Member Role/Relationship Status Dates Cindy Collado , RAIL SPECIALIST-C Primary Care Provider Active Start: December 03, 2024 End: December 03, 2024Jameson Mcleod APRN-FNP-CAttending ProviderActive Start: December 03, 2024 End: December 03, 2024Team MemberRelationshipSpecialtyStart DateEnd Date Shaikh Day MD PCP - GeneralInternal Medicine Gerry Godwin MD PCP - GeneralFamily Medicine10/02/2409 Shaikh Day MD [address] [place] [address] PCP - [place] IA10/13/2411 Unallocated, Olga Nichole MD [address] [facility] [place] [address] PCP - GeneralFamily Wrajxoae89/22/ Gerry Godwin MD PCP - GeneralFamily Eqtatefq13/31/24 Gerry Godwin MD [address] [place] [address] PCP - [place]04/11/24 Cindy Collado NP Nurse PractitionerFamily Medicine10/03/23 Aime Clark DO [address] [place] [address] Vcivarkaqxqqxw89/21/24 Nakul Zazueta DO [address] [address] Referring UeicidwyyXtweedngr65/28/24 Ynes Snyder NP [address] [address] Nurse TzldiuqtatzdFykjaxqdl23/28/24 Jameson Mcleod NP [address] [address] Nurse BtluscuzojevRnymliwjy93/28/24 Milton Piña MA [address] [place] [address] Family Wrntfwhq63/10/248Team MemberRelationshipSpecialtyStart DateEnd Date Shaikh Day MD PCP - GeneralInternal Medicine Shaikh Day MD PCP - GeneralInternal Medicine Gerry Godwin MD PCP - GeneralFamily Medicine10/02/2409 Shaikh Day MD [address] [place] [address] PCP - [place] MA10/13/2411 Unallocated, Olag Nichole MD [address] [place] [address] PCP - GeneralFamily Ijolhgdz42/22/ Gerry Godwin MD PCP - Generalmily Lneblnjj24/31/24 Gerry Godwin MD [address] [place] [address] PCP - [place]04/11/24 Cindy Collado NP Nurse Pract[facility]erDec[facility] Hospitally Medicine10/03/23 Aime Clark DO [address] [place] [address] Nakxrpseblherb88/21/24 Nakul Zazueta DO [address] [address] Referring HmbfyynvwQbqkcsfpe85/28/24 Ynes Snyder NP [address] [place] [address] Nurse WgaddubwokcbKwgkrmspj70/28/24 Jameson Mcleod NP [address] [place] [address] Nurse HlrjrbhnacvzIyfltitiv14/28/24 Milton Piña, [place] [address] [place] [address] Family Dccqbdgs40/10/248/ Goals (unrecognized section and content) Goals may [...] BE BASED ON THE PRIMARY CLINICAL RECORDS. [facility] [employer] [facility]. provides no warranty or guarantee of the accuracy or completeness of information in this document.
[2025-01-01 10:03] LABS: Hematocrit 45.4 % (36.0-48.0); Hemoglobin 14.8 g/dL (12.0-16.0); Immature Granulocytes Abs Auto 0.01 10^3/uL (0.00-0.03); Immature Granulocytes Pct Auto 0.2 % (0.0-0.5); Lymphocytes Absolute Auto 1.9 10^3/uL (1.2-3.8); Mean Corpuscular HGB Conc 32.6 g/dL (29.9-35.2); Mean Corpuscular Hemoglobin 30.0 pg (26.7-34.0); Mean Corpuscular Volume 91.9 fL (81.0-99.0); Platelet Count 146 10^3/uL (150-450); Red Blood Count 4.94 10^6/uL (4.20-5.40); White Blood Count 5.1 10^3/uL (4.0-11.0)
[2025-01-01 10:23] LABS: Alanine Aminotransferase 24 U/L (14-59); Albumin Globulin Ratio 1.2; Albumin Level 3.4 g/dL (3.4-5.0); Alkaline Phosphatase 93 U/L (46-116); Anion Gap 10.8; Aspartate Amino Transferase 16 U/L (15-37); Blood Urea Nitrogen 19.0 mg/dL (7.0-18.0); Calcium 8.7 mg/dL (8.5-10.1); Carbon Dioxide 28.6 mmol/L (21.0-32.0); Chloride 112 mmol/L (98-107); Cholesterol 131 mg/dL (<=200); Estimated GFR (African America >60 (>=60 mL/min/1.73m^2); Estimated GFR (Non-African Ame >60 (>=60 mL/min/1.73m^2); Globulin 2.9 g/dL; Glucose 84 mg/dL (74-106); HDL Cholesterol 65 mg/dL (40-60); Magnesium 2.2 mg/dL (1.8-2.4); Potassium 3.4 mmol/L (3.5-5.1); Sodium 148 mmol/L (136-145); Total Protein 6.3 g/dL (6.4-8.2); Triglycerides 79 mg/dL (<=150); VLDL CHOLESTEROL 15.8 mg/dL
== END 2025-01-01 09:40 | disposition home or self-care (01) ==
PROVIDERS: PCP Nurse Practitioner; Visit Provider Nurse Practitioner
DX: E53.8 Deficiency of other specified B group vitamins (principal); I10 Essential (primary) hypertension; E78.2 Mixed hyperlipidemia; F41.1 Generalized anxiety disorder; R42 Dizziness and giddiness; Z79.899 Other long term (current) drug therapy; E55.9 Vitamin D deficiency, unspecified
CPT/HCPCS: 36415; 80053; 80061; 82306; 83735; 85025

== ENCOUNTER 2025-01-14 08:58 | Outpatient (OUT) | payer MEDICARE, SELFPAY ==
--- OUTSIDE RECORDS SUMMARY | 2025-01-14 09:01 | XMS_ITS | Clinical Summary ---
Author Organization [facility] Address [address] [place] [address] Phone Care Team Providers Care Clinical Allergist Name Role Phone Unavailable Primary Care Provider Unavailabl e Social History Tobacco UseTypesPacks/DayYears UsedDateSmoking Tobacco: Never Assessed CommentsUnknownSex and Gender InformationValueDate RecordedSex Assigned at Not on fileLegal HztGkhvso78/25/2022 9:42 AM ESTGender IdentityNot on fileSexual OrientationNot on file Plan of Treatment Not on file
--- OUTSIDE RECORDS SUMMARY | 2025-01-14 09:01 | XMS_ITS | Clinical Summary ---
Author Organization [facility] Address [facility] [place] [address] Care Team Providers Care Owner Manager Name Role Phone Aneesh Ramirez MD Primary Care Provid er Allergies Active AllergyReactionsCriticalityNoted GhvkEgppjjfePkjlvhpllsgDlfq65/09/2008 Medications MedicationSigDispense QuantityRefillsLast FilledStart DateEnd DateStatus hydrochlorothiazide [...] needed (for pain.).ctive Active Problems ProblemNoted DateDiagnosed LuivVcikdszttcom78/12/2010Reflex sympathetic dystrophy of the lower limb04/09/2007Knee joint replacement by other means 04/09/2007Osteoarthrosis, unspecified whether generalized or localized, lower leg04/09/2007Contusion of knee04/09/2007Tear of medial cartilage or meniscus of knee, aptydrf7704/09/2007 Family History Medical HistoryRelationCommentsIschemic Heart DiseaseBrotherMigraine [Other] DaughterCancerFatherBoneIschemic Heart DiseaseFatherbrain tumor [Other]Maternal GrandmotherCancerMotherBreast with metastases to brain?SeizuresOthergrandson and granddaughter with seizuresRelationStatusCommentsBrotherDaughterFatherMaternal GrandmotherMotherOther Social History Tobacco UseTypesPacks/DayYears UsedDateSmoking Tobacco: FormerCigarettes 02/11/1979 - 02/11/1989 Comments:SMOKED 1/2 TO 3/4 P ACK OF CIGARETTES DAILY Alcohol UseStandard Drinks/WeekCommentsNo0 (1 standard drink = 0.6 oz pure alcohol)CommentsNoSex and Gender InformationValueDate RecordedSex Assigned at BirthNot on fileLegal OmtPasbmf63/02/2012 9:33 AM ESTGender Identity Not on fileSexual OrientationNot on file Last Filed Vital Signs Vital SignReadingTime TakenCommentsBlood Hesfpdoq034/60008/10/2011 8:10 AM EDT Krglc29902/29/2012 8:10 AM EGLYaqevfexmfe35.1 ??C (98.7 ??F)07/01/2009 7:00 AM EDTRespiratory Qaxk415407/01/2009 7:00 AM EDTOxygen Sfobtxywzc06%07/01/2009 7:00 AM EDTInhaled Oxygen Concentration--Rpidvf62.2 kg (212 lb)08/10/2011 8:10 AM EDT Aikyvn634.9 cm (5' 1 )08/10/2011 8:10 AM EDTBody Mass Index40.0608/10/2011 8:10 AM EDT Plan of Treatment Health MaintenanceDue DateLast DoneCommentsAnxiety Jtvmynkoo03/23/1967Depression Pdbvkkvpv57/23/1967Hepatitis C Ycqwoxsxs52/23/1967DTaP,Tdap,Td Vaccine (1 - Tdap)06/04/1967Pneumococcal Vaccine: 50+ (1 of 1 - PCV)1998Shingrix Vaccine (1 of 2)1998Diabetes Agpcejcpz96/19/, 06/29/2009, 06/22/2009one Density Mxjqdoqiy66/23/2014RSV Vaccine (1 - 1-dose 75+ series) 4Advance Directive Luxbfpufbe99/01/2025Covid-19 Vaccine ( season)2024Influenza Vaccine (#1)2024 Medical Devices ImplantedTypeAreaManufacturerDevice IdentifierShelf Expiration DateModel / Serial / LotCement Bone Simplex P W/ Tobramycin 1gm - [id number] Implanted:Qty: 5 on 06/28/2009 at [facility] [place] / PuttyHOWMEDICA 01/10/[id number] / / [id number] Restrictor Revision Cecil - [id number] Implanted:Qty: 1 on 06/28/2009 at [facility] [place] [facility] [id number] / / Femur Post Aug Traith 5mm Sz 3 - [id number] Implanted:Qty: 1 on 06/28/2009 at [facility] OZIZKWGYIHO81/28/[id number] / [id number] / XSNRRestrictor Cement W/Insertor - [id number] Implanted:Qty: 1 on 06/28/2009 at [facility] [id number] / / Insert Tri Tib Ps X3 Sz3 11mm - [id number] Implanted:Qty: 1 on 06/28/[address] [facility]: Bone - Knee [facility] CQLZKBYRDXS68/24/[id number] / / MJAJJAInsert Tri Tib Ps X3 Sz3 13mm - [id number] Implanted:Qty: 1 on 06/28/[address] [facility]: Bone - Knee [facility] DKVXUNQGSDQ38/01/[id number] / / [id number] Femur Comp Rt Sz 3 - [id number] Implanted:Qty: 1 on 06/28/2009 at [facility] CNHPTNXFLJE70/28/[id number] / [id number] / XTIXStem Triath Cemented 15x50 - [id number] Implanted:Qty: 1 on 06/28/2009 at [facility] EDQPAUDXXXS44/15/[id number] / [id number] / [id number] Triathlon Cement 48s51yx - [id number] Implanted:Qty: 1 on 06/28/2009 at [facility] DMWMQEDEDNM84/28/[id number] / [id number] / [id number] Post Aug Traith 5mm Sz 3 - [id number] Implanted:Qty: 1 on 06/28/2009 at [facility] ZPOLMPJQIFJ16/28/[id number] / [id number] / XTAYFemur Distal Aug Rt 15mm Sz 4 - [id number] Implanted:Qty: 1 on 06/28/2009 at [facility] CLHTZOAUGRQ08/03/[id number] / [id number] / WPOCFemur Distal Aug Rt 15mm Sz 4 - [id number] Implanted:Qty: 1 on 06/28/2009 at [facility] BXCANJAQMCL72/26/[id number] / [id number] / XWDFBaseplate Triathlon Ts Sz3 - [id number] Implanted:Qty: 1 on 06/28/[address] [facility] ORTHOPEDICS 04/17/[id number] / [id number] / ARYG Procedures Procedure NamePriorityDate/TimeAssociated DiagnosisCommentsBASIC METABOLIC PANEL Pnwfvao2106/29/2009 12:47 AM EDT from Last 3 Months or Most Recently Relevant to Health Maintenance Results * (ABNORMAL) BASIC METABOLIC PNL (06/29/2009 12:47 AM EDT)ComponentValueRef RangeTest MethodAnalysis TimePerformed AtPathologist TnmiqomnmFopzsgi689(H)65 - 100 mg/dLMARTIN MEM[facility]IAL [facility]IN RZOYDPWKGTDFL680 - 25 mg/dLBLANCHARD VALLEY [facility] LABORATORYCreatinine0.53(L)0.70 - 1.40 mg/dLMARTIN MEMORIAL [facility] MAIN QVNORICJWCEqrvvx755000 - 148 mmol/LCDELAWARE COUNTY HOSPITAL MAIN LABORATORYPotassium 4.03.5 - 5.0 mmol/LCDELAWARE COUNTY HOSPITAL [facility]IN YNFYJGZEHQAwjxgtsx39624 - 110 mmol/L [facility] PZUAUZAEQLIV813(L)23 - 32 mmol/LCDELAWARE COUNTY HOSPITAL MAIN LABORATORYAnion Xkz643 - 15 mmol/LCDELAWARE COUNTY HOSPITAL MAIN LABORATORYCalcium7.6 (L)8.5 - 10.5 mg/dLBLANCHARD VALLEY [facility]ALTH SYSTEM [facility] LABORATORYSpecimen (Source)Anatomical Location / LateralityCollection Method / VolumeCollection TimeReceived Time Blood specimen (specimen)BLOOD SPECIMEN / Iazigcz1806/29/2009 12:47 AM EDT Narrative Authorizing ProviderResult TypeResult StatusJimy Wan MDLABORATORYFinal ResultPerforming OrganizationAddressCity/State/ZIP CodePhone Number [facility] [address] [place] [address] from Last 3 Months or Most Recently Relevant to Health Maintenance Care Teams Team MemberRelationshipSpecialtyStart DateEnd Date Aneesh Ramirez MD [address] [place] [phone] PCP - General07/24/07
--- NOTE | 2025-01-14 09:02 | MM_ITS ---
Patient Name: FITZ GIFFORD MR#: [id number] : 1950 Exam Date: 01/14/2025 Ordering Doctor: CYDNEY GREENE CNP RADIOLOGY REPORT PROCEDURE: MM TOMOSYNTHESIS SCREENING BI COMPARISON: MG MAMM SCREEN IAN W CAD, 12/09/2018. INDICATIONS: Screening Calculator Name NCI Breast Cancer Risk Assessment Tool 5 Year Breast Cancer Risk 4.40% Lifetime Breast Cancer Risk 8.70% Personal Breast Cancer No Personal Ovarian Cancer No Treatments None Family Cancers Mother with breast cancer at age 54; Grandmother-maternal with breast cancer at age 24; Daughter with lung cancer at age 42; Father with bone cancer at age 82. LOCATION: [facility] BREAST COMPOSITION: There are scattered areas of fibroglandular density. FINDINGS: DIAGNOSTIC CATEGORY 1--NEGATIVE. RIGHT BREAST: No significant suspicious finding. LEFT BREAST: No significant suspicious finding. RECOMMENDATIONS: ROUTINE MAMMOGRAM AND CLINICAL EVALUATION IN 12 MONTHS. Dictated by: Wili Flood DO on 01/14/2025 at 10:50 Approved by: Wili Flood DO on 01/14/2025 at 10:50
--- OUTSIDE RECORDS SUMMARY | 2025-01-14 09:02 | XMS_ITS | Clinical Summary ---
Author Organization [facility] Address [address] [facility] [place] [address] Care Team Providers Care Transit Planner Name Role Phone Steve Junior MD Unavailable [phone] Source Comments The following information is NOT included in Care Everywhere downloads:Psychiatric notes, ECG results, Cardiac Rehab notes, Pulmonary Function notes, data from SmartForms (includes but not limited toPregnancy data,audiograms, eye exams, pre-surgical evaluation notes, well-child exam data).[facility] Active Problems ProblemNoted DateDiagnosed Date([facility]) RT CONTUSION OF KNEE07/06/2010([facility]) RT TEAR OF MEDIAL CARTILAGE OR MENISCUS OF KNEE, MINGZQN8207/06/2010([facility]) RT OSTEOARTH NOS-L/LEG07/06/2010 Social History Tobacco UseTypesPacks/DayYears UsedDateSmoking Tobacco: Never Assessed CommentsUnknownSex and Gender InformationValueDate RecordedSex Assigned at Not on fileLegal VhgIxhwsn75/04/2012 8:27 AM ESTGender IdentityNot on fileSexual OrientationNot on file Plan of Treatment Health MaintenanceDue DateLast DoneCommentsHepatitis C Mskcchtr66/23/1967Tdap Zokyxnp1006/03/1966Hepatitis A (HAV) Vaccine (optional start 19+ years)06/04/1967 Tetanus (Td or Tdap) Ftqeylq5906/04/1967Pneumococcal Vaccine(s) (50+ yrs) (1 of 1 - PCV)1998Shingles (RZV) Vaccine (1 of 2)1998Hepatitis B (HBV) Vaccine (optional start 60+ years)2008one Igdwmuuqsutn53/23/2014RSV vaccine (adult) (1 - 1-dose 75+ series)4COVID-19 Vaccine (2024-26 season)2024Influenza Vaccine (#1)2024Pap SmearDiscontinued Insurance Care Teams Team MemberRelationshipSpecialtyStart DateEnd Date Steve Junior MD [address] [phone] 05/10/10
--- OUTSIDE RECORDS SUMMARY | 2025-01-14 09:02 | XMS_ITS | Clinical Summary ---
Author Organization [facility] Address [address] [place] [address] Care Team Providers Care Welder And Fitter Name Role Phone Aleena Collado MD Primary Care Provider [phone] Allergies Active AllergyReactionsCriticalityNoted NvhuPsqfzygyTurstyvezulRzzsPmb43/09/2008 Medications MedicationSigDispense QuantityRefillsLast FilledStart DateEnd DateStatus aspirin [...] accident (CVA), unspecified mechanism (CMS/HCC), Atherosclerosis of [place] coronary artery of [place] heart without angina pectoris,Primary hypertension,SARAVIA (dyspnea on [...] 20 mg tablet Indications:Coronary artery disease involving [place] coronary artery of [place] heart without angina pectoris,Carotid artery stenosis, asymptomatic, [...] to extended spectrum beta lactamase (ESBL) producing fadjkjig32/25/2025 Overview (07/22/2024): ESBL E coli urine CRYSTAL (generalized anxiety disorder)01/21/2024 Overview (07/22/2024): Med agreement signed: 01/21/24 Heart failure, gqnogjxaqhr06/10/2024Iron dbvsevcffw64/10/2024Muscle spasm 01/21/2024sychophysiological gkinyzyr04/10/4550Ervdtjx67/31/2024Incontinence without sensory ejtikbczl33/31/2024Internal carotid artery stent present 09/11/2023UTI (urinary tract infection)09/11/2023White matter escnyrg4909/11/2023 Urinary tract infection krtoadhp94/22/2024 Overview (09/11/2023): Last Assessment & Plan: Patient [...] of meclizine, ordered vestibular rehab Dizziness and sryiahdfg41/08/2024 Overview (09/11/2023): Last Assessment & Plan: Dizziness [...] status) nemiaphasia due to acute stroke onfusionysphagia Uhjjynhm95H/O traumatic brain sanhnc68 Gkbiajqb31Impaired mobility and activities of daily living Encounter for prophylactic measures, simwlfxugix68/01/2024 03/14/2023Hospital discharge follow-up Overview (03/14/2023): Last Assessment [...] for diuresis and repeat BMP next week Ofdbyauxlx33History of cerebrovascular accident (CVA) with residual bopaqst09Migraine with aura and without status migrainosus, not fyhyxjffgsm82Overflow incontinence of urine Overview (03/14/2023): Last Assessment [...] Urology. Recurrent major depressive disorder, in full zjhecjhqn11URTI (acute upper respiratory infection) Overview (03/14/2023): Last Assessment & Plan: Patient had reported symptoms of cough in the morning and had asked for testing. Respiratory panel is negative for any influenza, COVID. Symptoms resolved. Denies cough, SOB, nasal, chest congestion. Zrfplewwlfg20/23/2023 Overview (03/05/2022): Images from the original note [...] Juarez- vascular surgery Recommended lymphedema clinic. Atypical zsqxig7503/05/2022 Assessment & Plan (03/05/2022 11:40 AM EST): Will start imdur 30 mg daily, d/w pt about headache as side effect and this should resolve after some time of taking imdur- if H/a does not resolve then we will stop medication. D/w pt that this may lower her b/p and to call office for any concerns. 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 LDL 40 Coronary ghigjcymgvcvbfi26/10/2021 Overview (03/05/2022): Images from the original note [...] GDMT- ASA, toprol and crestor Carotid artery hidtichv56/13/2021 Overview (03/05/2022): Images from the original note were not included. Assessment & Plan (03/05/2022 11:41 AM EST): F/U with vascular surgery for monitoring Assessment & Plan (01/19/2022 9:56 AM EST): Continue crestor F/U with vascular surgery Cerebrovascular oryznwcp96/13/2021 Assessment & Plan (02/13/2023 3:13 PM EST): F/U with neuro Status post placement of implantable loop buigwoue31/26/2019 Overview (01/18/2022): Medtronic Loop Suihtalkotdj88/12/2010 Assessment & Plan (03/14/2023 2:25 PM EST): [...] of medial cartilage or meniscus of knee, hfiuozz0004/09/2007 Immunizations ImmunizationAdministration DatesNext PeaUFO74Influenza, High Dose Seasonal, Preservative Free12/22/2018Influenza, High-dose Seasonal, Quadrivalent, Preservative Free12/09/2019Influenza, Seasonal, Quadrivalent, Ivfaaymifs64/10/2022,11/26/2020Janssen Sars-Cov-2 Lwqzmidxalm23/01/2021Novel qndtzlnte-G0X6-27, preservative-free02/17/2009 Family History Medical HistoryRelationNameCommentsHeart attackBrotherHypertensionFather HypertensionMotherRelationNameStatusCommentsBrotherFatherDeceasedMotherDeceased [...] Last Filed Vital Signs Vital SignReadingTime TakenCommentsBlood Iftdxwjv260/62007/22/2024 10:59 AM EDT Iuccs4285 10:59 AM EDTTemperature--Respiratory Rate--Oxygen Saturation 99%07/22/2024 10:59 AM EDTInhaled Oxygen Concentration--Qmofat20.9 kg (154 lb) 07/22/2024 10:59 AM GQDIrtpfg015.6 cm (5' 4 )07/22/2024 10:59 AM EDTBody Mass Index26.43007/22/2024 10:59 AM EDT Plan of Treatment Health MaintenanceDue DateLast DoneCommentsMedicare Annual Wellness (AWV) 1950Depression Vugqvzobg65/23/1961Zoster Vaccines (1 of 2)1998Adult Idelysr64Fall Risk Ycwsenvrr89/23/2014COVID-19 Vaccine (2 - season)/02/2020Influenza Vaccine (#1)509/, 11/24/2022, 01/20/2022, Additional history existsColonoscopyDiscontinued 05/12/2021olorectal Cancer ScreeningDiscontinuedPneumococcal Vaccine: 50+ Years Qmajrfunw22/14/2023CT ColonographyDiscontinuedFIT-DNADiscontinuedFITDiscontinued FOBTDiscontinuedHIB VaccinesAged OutNo longer eligible based [...] Aleena Collado MD [address] [place] [phone] PCP - GeneralNurse Practitioner07/21/24
--- OUTSIDE RECORDS SUMMARY | 2025-01-14 09:02 | XMS_ITS | Clinical Summary ---
Author Organization [facility] Address [address] [place] [address] Care Team Providers Care Supervisor Meter [employer]air Shop Name Role Phone Aleena Collado RRTS Unavailable [phone] Obed Walls DO Unavailable Vish Zazueta DO Unavailable Ynes Snyder RRTS Unavailable [phone] Jessica Ceballos RRTS Unavailable [phone] Gerry Godwin MD Primary Care Provider [phone] Shaikh PEEWEE Day Unavailable [phone] Allergies Active AllergyReactionsCriticalityNoted DateCommentsPenicillin GUnknown 5088NuflbjddcttAvbmIba52/09/2008 Medications MedicationSigDispense QuantityRefillsLast FilledStart DateEnd DateStatus furosemide [...] weeks, then 3 (THREE) times per week qqhdbuekdc89/19/2025Active methenamine hippurate (Hiprex) 1 g tablet Take [...] MG tablet Indications:Atherosclerosis of coronary artery of [place] heart, unspecified vessel or lesion type, unspecified [...] recurrent major depressive disorder 08/11/2024Recurrent UTI02/26/2024Heart failure, arffipaxdzq65/10/2024 Assessment & Plan (01/21/2024 11:51 AM EST): Current meds: lasix, bblocker, crestor and amlodipine Does follow with [facility] cardiology Does have LE edema noted as well today, no dyspnea Peripheral vascular disease, keuzkakzxar42/10/2024 Assessment & Plan (01/21/2024 6:37 AM EST): [...] (01/21/2024 6:46 AM EST): Takes baclofen Iron ksdcdepzlm02/10/2024 Assessment & Plan (01/21/2024 10:42 AM EST): Labs stable, cont current meds Psychophysiological ytnpvpjj41/10/2024 Assessment & Plan (08/11/2024 5:55 PM EDT): [...] bactrim by Fawwad 02/20/23 ecoli White matter oblbpzi9309/11/2023Incontinence without sensory rwvknnowx93/31/2024 Oropharyngeal gsrrymrst25/10/2024 Assessment & Plan (10/22/2023 11:19 AM EDT): [...] drinking thin liquid Medicare annual wellness visit, tkuvbrusmm63/22/2024 Assessment & Plan (2023 7:16 PM EDT): Patient here for Medicare Wellness. Reviewed medical, surgical and social history. Reviewed medication list. Patient screened for depression, fall risk, cognitive impairment. Patient provided appropriate education on chronic medical conditions, prescription medications. Patient's health related questions and concerns addressed and answered. Colonoscopy 2021- no need for repeat. Encounter for screening mammogram for breast dkmckv6906/03/2023izziness and hodgpsycl30/03/2024 Assessment & Plan (05/12/2024 7:04 AM EDT): [...] rehab Impaired mobility and activities of daily rsfnwx2003/14/2023 Assessment & Plan (05/12/2024 7:05 AM EDT): Continue with home health Assessment & Plan (02/27/2024 4:19 PM EST): Was getting HH, would benefit from continued services Emtyqkjbuy62/10/2024History of cerebrovascular accident (CVA) with residual utlrkyt2002/20/2023 Assessment & Plan (02/27/2024 4:19 PM EST): Would benefit from continued home health services, she relies heavily on her to help with her ADL's Other egpiloskfdguge10/10/2024rimary ielphmmxzjrm34/10/2024 Assessment & Plan (08/11/2024 7:41 AM EDT): [...] 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 Will also refer to Urology. 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, continue crestor Coronary kfyiwiiuysneeft87/10/2021 Overview (02/20/2023): Images from the original note [...] EDT): Crestor, toprol and ASA Carotid artery flykwyev78/13/2021 Overview (05/15/2023): Images from the original note [...] EDT): Would like a more local neurologist Xbcbfxpwxptbyc91/27/2008 Resolved Problems ProblemNoted DateDiagnosed DateResolved DateAcute diffuse otitis externa of both ears/02/2024 Assessment & Plan (2024 12:41 PM EDT): No evidence of TM perforation Will prescribe atb drops, for 10 days, if not better fu in office UTI eqncwchp12/02/2024 Overview (01/21/2024): Cheri [id number] LOT #[id number] EXP DATE: 02/11/2024 Assessment & Plan (01/21/2024 11:53 AM EST): Treat with macrobid, send for [facility] trax culture Acute cystitis without fwewajubk50 Overview (10/30/2023): 10/30/23 klebsiella, tx w bactrim Urinary tract infection rquqwdeg65 Assessment & Plan (2023 7:21 PM EDT): [...] needed. Recurrent major depressive disorder, in full /02/2024 Assessment & Plan (01/21/2024 6:39 AM EST): [...] cough, Azithromycin for antibacterial coverage. PCN allergic. Rvgjuievfroy41 Overview (02/20/2023): Last Assessment & Plan: Hypertension is elevated, currently will increase lasix to daily and increase potassium, Repeat BMPin 1 week Continue norvasc 2.5 mg Renal function normal Immunizations ImmunizationAdministration DatesNext CecKID16Influenza, High Dose Seasonal, Preservative Free12/22/2018Influenza, High-dose Seasonal, Quadrivalent, Preservative Free12/09/2019Influenza, Seasonal, Quadrivalent, Epcfedoccf91/14/2023,01/20/2022,11/26/2020Influenza, Dhivyznebcp76/28/2024, 11/24/2022,01/20/2022,11/26/2020,12/09/2019,12/22/2018,03/25/2001Influenza, seasonal, fqenmusjmi36/12/2002Influenza, trivalent, egusyqtpia04/28/2024Novel uooyacalt-T6X5-40, preservative-free02/17/2009Pneumococcal Conjugate PCV 20 11/24/2022RSV, recombinant, protein [...] other written material from your doctor or pharmacy?Wosrdkjil56/16/2024Humiliation, Afraid, Rape, and Kick questionnaireAnswerDate RecordedWithin the [...] relatives?Once a week01/27/2024How often do you attend latter-day or episcopal services?Never4Do you belong to any clubs or organizations such as latter-day groups, unions, fraternal or athletic groups, or school groups?No01/27/2024How often do you attend meetings of the clubs or organizations you belong to?Never01/27/2024re you , , , , never , or living with a partner?Acwsqza0201/27/2024UDIT-C AnswerDate RecordedQ1: How often do you have [...] hard at all01/27/2024 PHQ-2AnswerDate RecordedPatient Health Questionnaire-2 Jhfjv455Fintimpanogos [facility] [place] of Occup[facility] - Occupational Stress QuestionnaireAnswerDate [...] were you homeless or living in a fpc (including now)?No4CommentsUnknownSex and Gender InformationValueDate RecordedSex Assigned at BirthNot on fileLegal SexFemale 04/25/2022 6:38 PM EDTGender IdentityNot on fileSexual OrientationNot on file Last Filed Vital Signs Vital SignReadingTime TakenCommentsBlood Tuolyaqh514/6607 9:10 AM EDT Lycoo0657 9:10 AM ZMPRbcqnbnrart29.6 ??C (97.8 ??F)08/11/2024 9:10 AM EDTRespiratory Iwrh083808/11/2024 9:10 AM EDTOxygen Zsqsujtijt58%08/11/2024 9:10 AM EDTInhaled Oxygen Concentration--Qgvszq55 kg (158 lb 12.8 oz)08/11/2024 9:10 AM YHQDzipov938.9 cm (5' 1 )01/21/2024 9:55 AM ESTBody Mass Mdheo9009/10/2024 9:55 AM EST Plan of Treatment Health MaintenanceDue DateLast DoneCommentsCOVID-19 Vaccine ( season) /02/2020Influenza Vaccine (#1)5011/09/2023, 11/09/2023, 11/24/2022, Additional history jjgyeoWgemfxjgmpyQagrgdanqufo23/01/2022, 2Colorectal Cancer ScreeningDiscontinuedPneumococcal Vaccine: 65+ Years Cairjaocx92/14/2023CT ColonographyDiscontinuedFIT-DNADiscontinuedFITDiscontinued FOBTDiscontinuedSigmoidoscopyDiscontinued Insurance Care Teams Team MemberRelationshipSpecialtyStart DateEnd Date Gerry Godwin MD [address] [place] [phone] [facility]CP - [facility] Tkhkqaqo58/31/24 Shaikh Day MD [address] [place] [phone] PCP - [place]10/12/24 Aleena Collado NP [address] [place] [phone] Nurse PractitionerFamily Medicine10/03/23 Obed Walls DO [address] [place], [place] [phone] Nvagqvadnaoghd58/21/24 Vish Zazueta DO [address] [address] [place] [phone] Referring IjfdpbdjoLhtigtqiz40/28/24 Ynes Snyder NP [address] [place] [id number] Nurse JoiyevxatmejTfxawqeax64/28/24 Jessica Ceballos NP [address] [place] [address] Nurse EqfujtytuwxdFkwgplqic14/28/24
--- OUTSIDE RECORDS SUMMARY | 2025-01-14 09:08 | XMS_ITS | CCD ---
Author Organization [facility] Care Team Providers Care Slip Operator Name Role Phone Denver Juarez Unavailable Susie [...] Provider MD Ashleigh Card Attending Provider [phone] LESTER Castañeda Other Provider Unavailable DO Tye Mendoza Other Provider MD Betito Arellano Other Provider [phone] MD Aneesh Zendejas Other Provider [phone] MD Shavon Leos Other Provider MD Brayan Ribera Other Provider CÉSAR Arenas Other Provider MD Shefali Garibay Other Provider MD Vannessa Nava Other Provider MD Alissa Young Other Provider Jose [facility] Maddie Pietro Other Provider [phone] MD Anna Valladares Attending Provider NO FAMILY PHYSICIAN, 837 Primary Care Unavail able MIKE VIDES, [facility] Attending Unavaila MD Eddy Swenson Primary Care Provider DO Rafiq Bahena Emergency Provider [phone] Al MD Dagoberto Roche Admit Provider MD Anna Valladares Attending Provider MD Gerry Godwin Primary Care Provider [phone] MD Eddy Day Attending Provider [phone] Admitting Unavailable DAVIDLIZ Attending Unavailable [...] Admitting Unavailable DAVID, LIZ Attending Unavailable FAWWAD, KAM H Primary Care [...] H Primary Care Unavailable TATO, DR GERRY Crarasco Admitting Unavailable TATO, DR GERRY Carrasco Attending [...] Physician MD Lazaro Dayikh Primary Care Provider [phone] MD Eddy Day Attending Provider Shaik Day MDh Primary Care Provider MD Lazaro Dayikh Primary Care Provider MD Dnever Juarez Attending Provider MD Denver Juarez Admit [...] Orzech, Carmen X Admitting Unavailable MD Barb [facility] Primary Care Provider ANA SumnerC Felicita Isaac Attending Provider Heaven FLORES, Cindy Unavailable Tato VIDES, Gerry Primary Care Provider Shaikh Day MD Unavailable Aime Clark DO Unavailable Unallocated , [place] Provider Primary Care Provi neftali Marbin DO, Nakul Unavailable [phone] Claudio 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, Ynes Unavailable Harsha FLORES, Jameson Unavailable MD Barb [facility] Primary Care Provider DO Aime Clark Attending Provider Gerry Godwin MD Primary Care Provider [phone] Milton Piña MA Unavailable Unavailable Barb VIDES, Kam Primary Care Provider Aime Clark DO Attending Provider [phone] BERNICE CLEMENTE Attending Unavailable BERNICE CLEMENTE Admitting Unavailable Gerry Godwin MD Primary Care Provider KAREY CLEMENTE Attending Unavailab KAREY García Attending Unavailab KAREY García Attending Unavailab KAREY García Admitting Unavailab KAREY García Attending Unavailab CINDY Spicer Referring Unavailable KAREY CLEMENTE Attending Unavailab BERNICE García Attending Unavailable BERNICE CLEMENTE Admitting Unavailable Kori German Attending Unavailable BERNICE CLEMENTE Attending Unavailable Aichholbharati 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, Cindy Unavailable Claudio 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, Ynes Unavailable Gerry Godwin MD Unavailable BERNICE CLEMENTE Attending Unavailable Alexandr OVALLE Admitting Unavailable Alexandr OVALLE Attending Unavailable BERNICE CLEMENTE Attending Unavailable CINDY COLLADO Primary Care Physician [phone] RUBEN SALVADOR Attending Unavailable RUBEN SALVADOR Attending Unavailable BERNICE CLEMENTE Attending Unavailable BERNICE CLEMENTE Admitting Unavailable BERNICE CLEMENTE Attending Unavailable Alexandr OVALLE Admitting Unavailable Alexandr OVALLE Attending Unavailable Nakul Zazueta DO Unavailable [phone] Claudio 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, Ynes Unavailable Harsha FLORES, Jameson Unavailable Unavailable [...] Attending Unavailable CINDY COLLADO Attending Unavailable Harsha LINDSEY-FACILITIES ASSISTANT-Jameson Vasquez Attending Provider Cindy Collado Primary Care Provider [phone] BERNICE CLEMENTE Attending Unavailable Alexandr OVALLE R [...] Unavailable Orzech, Carmen X Attending Unavailable Heaven 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-C, Cindy Perry Primary Care Provider [phone] Heaven 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-C, Cindy Perry Attending Provider Harsha V BLOCK SAW OPERATOR-FACILITIES ASSISTANT-C, Jameson Carias Attending Provider Barb VIDES, Primary Care Provider Heaven 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, Cindy Unavailable Tato VIDES, Gerry Primary Care Provider Barb VIDES, Unavailable Unallocatmaday VIDES, Jeremiass Provider Primary Care Provi neftali Tato VIDES, Gerry Primary Care Provider Wang ZARCO, Saebel Unavailable Tato VIDES, Gerry Unavailable Barb VIDES, Kam Primary Care Provider Shaikh Day Primary Care Unavailable Denver Juarez Admitting UnavailDenver Hunter Attending Unavailabl e Cindy Collado Attending Unavailable Cindy Collado Admitting Unavailable Cindy Collado Primary Care Unavailable Allergies Allergy ClassificationReported Allergen(s)Allergy TypeDate of OnsetReaction(s) Facility (20 sources)Penicillin GDrug Godooea31-98-6481SbkfoouMBOT Healthcare (20 sources)Penicillins; Translations: [PENICILLINS]Allergy to substance 96-82-8807JpueIoinrejhmUK Healthcare (1 source)PenicillinDrug Abzbcww45-91-2031MnrOhio[facility] (20 sources)Penicillin; Translations: [penicillin]Drug AllergyExecutive [facility] Medications Current Medications MedicationDrug Class(es)DatesSig (Normalized)Sig (Original)acetaminophen 325 mg / HYDROcodone bitartrate 5 mg oral tablet (1 source)Opioid AgonistStart: 41-54-2275kasr 1-2 tablets by mouth every four to six hours as neededHYDROcodone-Acetaminophen 5-325 MG 1-2 tablet as needed Orally every 4-6 hrs for 7 days Mar, [id number] 200 actuat albuterol 0.09 mg/actuat metered dose inhaler (5 sources)beta2-Adrenergic Agonist End: 57-78-4378icou 2 puff(s) by inhalation every four hoursalbuterol HFA 90 mcg/act inhaler Inhale 2 puffs every 4 (four) hours if needed for shortness of breath 10/22/2023 Discontinued (Therapy completed)amLODIPine 2.5 mg oral tablet (20 sources)Dihydropyridine Calcium Channel BlockerStart: 08-28-2022 End: 35-60-0095gvnx 1 tablet by mouth once dailyAmlodipine 2.5 mg tablet Active 2.5 MG PO Daily April 09, 2023 1:00am FreeTextSi tablet Orally Once a day; Note: Source Status: Taking; Provider: Windy Sheikh ( ) Complies with drug therapyascorbic acid 500 mg oral tablet (20 sources)Vitamin CStart: 26-87-7141nagj 1 tablet by mouth once dailyAscorbic Acid (Vitamin C) 500 mg tablet Active 500 MG PO Daily November 08, 2024 12:00am Complies with drug therapyStart: 51-18-3745Xcfhgxg C See Instructions, Refills(s) 0 Start Date: 04/14/24 Status: Ordered Repeat number: 1Start: 29-87-2416Orbzulz C See Instructions, Refills(s) 0 Start Date: 04/14/24 Status: Orderedtake 1 tablet by mouth once dailyascorbic acid (Vitamin C) 500 MG tablet Take 500 mg by mouth Daily Activeaspirin 81 mg chewable tablet (20 sources)Platelet Aggregation Inhibitor, Nonsteroidal Anti-inflammatory Drug Start: 01-16-2023 End: 82-21-4595zcxs 1 tablet by mouth once dailyAspirin 81 mg tablet,chewable Active 81 MG PO Daily April 12, 2023 1:00am FreeTextSi tablet Orally Once a day; Note: Source Status: Taking; Provider: Windy Sheikh ( ) Complies with drug therapyStart: 03-23-2020 End: 91-29-5182nusp 1 tablet by mouth once dailyAspirin 81 mg Tablet,Delayed Release (Dr/Ec) Discontinued 81 MG PO Daily March 23, 2020 1:00amMarch 2023 9:44am CVA preventionStart: 04-10-2018 End: 91-06-1281bmvg 1 tablet by mouth once dailyAspirin 81 mg Tablet,Chewable Discontinued 81 MG PO Daily 0 0 April 18, 2018 1:00am March 5:28pm Start: 04-10-2018 End: 28-04-9238oqof 1 tablet by mouth once daily in the morningAspirin 81 mg tablet,chewable Discontinued 81 MG PO Every morning March 26, 2019 5:28pm March 23, 2020 1:03pm cvabaclofen 20 mg oral tablet (20 sources)gamma-Aminobutyric Acid-ergic AgonistStart: 08-12-2024 End: 68-61-1448cnua 1 tablet by mouth every eight hours as needed for muscle spasms and muscle spasmsbaclofen (Lioresal) 20 MG tablet Indications: Muscle spasm Take 1 tablet (20 mg) by mouth every 8 (eight) hours if needed for muscle spasms 90 tablet 2 08/12/2024 ActiveStart: 28-59-7846IYGKSLIT 20MG TAB BACLOFEN 20MG TAB Start Date: 03/07/23 Status: Ordered Repeat number: 1Start: 03-07-2023 BACLOFEN 20MG TAB BACLOFEN 20MG TAB Start Date: 03/07/23 Status: OrderedStart: 04-05-2018 End: 19-35-3235dhzd 1 tablet by mouth three times daily [...] mg oral tablet (20 sources)Histamine-1 Receptor AntagonistStart: 13-38-1491dakh 1 tablet by mouth once daily as neededCetirizine 10 mg tablet Active 10 MG PO Daily as needed November 08, 2024 12:00am Complies with drug therapyStart: 02-18-2020 End: 21-93-7490hcvl 1 tablet by mouth once dailyCetirizine (All Day Allergy (Cetirizine)) 10 mg Tablet Discontinued 10 MG PO Daily February 18, 2020 1:00am November 21, 2021 11:26am allergy symptomsD-Mannose (2 sources)Start: 89-61-2276kqhs 1 mg by mouth onceD-Mannose (Azo D-Mannose) 500 mg capsule Active MG PO November 08, 2024 12:00am Complies with drug therapy D-Mannose 500 MG capsule (20 sources)take 1 capsule by mouth once dailyD-Mannose 500 MG capsule Take 500 mg by mouth Daily [facility] Activediclofenac sodium 0.01 mg/mg topical gel (6 sources)Nonsteroidal Anti-inflammatory DrugStart: 96-14-6010Dgkwzvds 1 % apply 1-2 grams to affected area Transdermal twice daily for 30 days Jul, Activedoxycycline hyclate 100 mg oral capsule (20 sources)Tetracycline-class DrugStart: 09-15-2024 End: 75-71-0747klez 1 capsule by mouth in the morningdoxycycline (Vibramycin) 100 MG capsule Take 100 mg by mouth in the morning and 100 mg before bedtime. 09/15/2024 ActiveStart: 50-63-1329onjt 1 capsule by mouth once dailydoxycycline hyclate 100 mg Cap 100 mg = 1 cap(s), Oral, Daily, Start the day before the procedure, # 14 cap(s), Refills(s) 0, Pharmacy: [facility], 160, cm, 07/16/24 10:45:00 EDT, Height/Length Dosing, 61, kg, 07/16/24 10:45:00 EDT, Weight Dosing Start Date: 09/09/24 Status: Ordered Quantity: 14.0 Unit: cap(s) Repeat number: 1Start: 05-08-2024 End: 83-71-7587iyik 1 tablet by mouth in the morningdoxycycline (Vibra-Tabs) 100 MG tablet Take 100 mg by mouth in the morning and 100 mg before bedtime. 05/08/2024 08/11/2024 Discontinued (Therapy completed)Start: 02-50-3555onmv 1 capsule by mouth every twelve hoursDoxycycline Hyclate 100 MG 1 capsule Orally Twice a day for 5 day(s) Mar, Activeestradiol 0.1 mg/ml vaginal cream (20 sources)EstrogenStart: 44-35-7399Dakinmehw 0.01 % (0.1 mg/gram) cream Active 1 GM VAGINAL 3 Times a week November 08, 2024 12:00am Complies with drug therapyStart: 22-64-5534junmflrod (Estrace) 0.1 MG/GM vaginal cream apply a pea- sized amount vaginally and around the urethra NIGHTLY TIME 3 (THREE) weeks, then 3 (THREE) times per week thereafter 04/01/2024 ActiveStart: 45-23-3086Fnxvphx 0.1 mg/g Cream See Instructions, 42.5 gm, Refill(s) 6, apply a pea-sized amount vaginally and around the urethra nightly x 3 weeks, then 3x per week thereafter, [facility], 160, cm, 04/01/24 8:56:00 EST, Height/Length Dosing, 60, kg, 04/01/24 8:56:00 EST, Weight Dosing StartDate: 04/01/24 Status: Ordered Quantity: 42.5 Unit: g Repeat number: 7FeroSul (2 sources)FeroSul ActiveFeroSul 325 mg oral tablet (20 sources)Start: 92-69-0304wqqa 1 mg by mouth three times dailyFeroSul 325 mg oral tablet mg tab(s), Oral, TID, Refills(s) 0 Start Date: 03/07/23 Status: Ordered Repeat number: 1Start: 92-88-1881dhmm 1 mg by mouth three times daily FeroSul 325 mg oral tablet mg tab(s), Oral, TID, Refills(s) 0 Start Date: 03/07/23 Status: Orderedferrous sulfate 325 mg oral tablet (20 sources)Start: 11-13-2022 End: 60-13-7519jcce 1 tablet by mouth at mealtimeferrous sulfate 325 (65 Fe) MG EC tablet Take 1 tablet by mouth in the morning. Take with meals. 11/13/2022 10/22/2023 Discontinued (Therapy completed)Start: 11-21-2021 End: 04-85-8209hjui 1 tablet by mouth once dailyFerrous Sulfate (Ferosul) 325 mg (65 mg iron) tablet Active 325 MG PO Daily November 21, 2021 12:00am Complies with drug therapyStart: 12-12-2018 End: 62-22-6217lket 1 tablet by mouth every other weekFerrous Sulfate 324 mg (65 mg iron) tablet,delayed release (DR/EC) Discontinued 324 MG PO EVERY 2 WEEKS December 12, 2018 10:27am February 18, 2020 1:28pmStart: 04-18-2018 End: 28-87-0989rofw 1 tablet by mouth twice dailyFerrous Sulfate 324 mg (65 mg iron) Tablet,Delayed Release (Dr/Ec) Discontinued 324 MG PO Twice daily 60 30 0 April 18, 2018 1:00am December 12, 2018 10:28amfurosemide 20 mg oral tablet (20 sources)Loop DiureticStart: 58-77-8312fqeb 2 tablets by mouth once daily Furosemide 20 mg tablet Active 40 MG PO Daily November 08, 2024 12:09pm Complies with drug therapyStart: 50-30-7283ryjb 10 mg by mouth once dailyLasix 20 mg Tab 10 mg = 0.5 tab(s), Oral, Daily Start Date: 04/01/24 Status: Ordered Repeat number: 1Start: 02-13-2023 End: 69-71-8239warymelefh (Lasix) 40 MG tablet Take 20 mg by mouth Daily Pt takes 20mg 02/13/2023 ActiveStart: 02-13-2023 End: 33-99-8007kvyyrdahdy 40 mg Tab Refills(s) 0 Start Date: 03/07/23 Status: OrderedStart: 11-21-2021 End: 08-33-9343pypr 1 tablet by mouth every other dayFurosemide 20 mg tablet Discontinued 20 MG PO .every other day November 21, 2021 12:00am 2024 12:11pm 20mg 2 tabsStart: 67-55-3133dfmo 20 mg by mouth once daily in the morningFurosemide Active 20 MG PO Every morning November 20, 2021 11:00pmtake 2 tablets by mouth every other dayFurosemide 20 MG 2 tablets Orally every other day Activehydrocortisone 10 mg/ml / neomycin 3.5 mg/ml / polymyxin b 88265 unt/ml otic solution (2 sources)Aminoglycoside Antibacterial, Polymyxin-class Antibacterial, CorticosteroidStart: 2024 End: 00-64-6643zynckdvm-polymyxin-hydrocortisone (Cortisporin) otic solution Indications: Acute diffuse otitis externa of both ears Administer 4 drops into each ear in the morning and 4 drops in the evening and 4 drops before bedtime. Do all this for 10 days. 10 mL 2024 06/13/2024 Activemeclizine hydrochloride 25 mg oral tablet (20 sources)AntiemeticStart: 05-29-2024 End: 92-71-9298qhid 1 tablet by mouth oncemeclizine (Antivert) 25 MG tablet Indications: Dizziness and giddiness Take 1 tablet (25 mg) by mouth every 12 (twelve) hours if needed for dizziness 60 tablet 05/29/2024 06/28/2024 Active Start: 06-25-2023 End: 25-93-4710hthk 1 tablet by mouth three times daily as needed for dizziness meclizine (Antivert) 25 MG tablet Indications: Dizziness and giddiness Take 1 tablet (25 mg) by mouth 3 (three) times a day as needed for dizziness 270 tablet 08/05/2023 11/03/2023 Activemethenamine hippurate 1000 mg oral tablet (20 sources)Start: 95-32-6183Lcroyiphrsf Hippurate 1 gram tablet Active 1 GM PO Twice daily November 08, 2024 12:00am Complies with drug therapyStart: 48-05-3047stjl 1 tablet by mouth in the morningmethenamine hippurate (Hiprex) 1 g tablet Take 1 g by mouth in the morning and 1 g before bedtime. 04/14/2024 ActiveStart: 04-14-2024 End: 14-69-5939bbbw 1 tablet by mouth twice dailymethenamine hippurate 1 g oral tablet 1 gm = 1 tab(s), Oral, BID, X 30 day(s), # 60 tab(s), Refills(s) 11, Pharmacy: [facility], 160, cm, 04/14/24 12:55:00 EST, Height/Length Dosing, 61, kg, 04/14/24 12:55:00 EST, Weight Dosing Start Date: 04/14/24 Stop Date: 04/09/25 Status: Ordered Quantity: 60.0 Unit: tab(s) Repeat number: 12 Indications: Urinary tract infection, site not specified;24 hr mirabegron 50 mg extended release oral tablet (7 sources)beta3-Adrenergic AgonistStart: 07-16-2024 End: 80-95-8363njjt 1 tablet by mouth once dailyMyrbetriq 50 mg oral tablet, extended release 50 mg = 1 tab(s), Oral, Daily, X 30 day(s), # 30 tab(s), Refills(s) 11, Pharmacy: [facility], 160, cm, 04/14/24 12:55:00 EST, Height/Length Dosing, 61, kg, 04/14/24 12:55:00 EST, Weight Dosing Start Date: 07/16/24 Stop Date: 07/11/25 Status: Ordered Quantity: 30.0 Unit: tab(s) Repeat number: 12nitrofurantoin, macrocrystals 25 mg / nitrofurantoin, monohydrate 75 mg oral capsule (7 sources)Nitrofuran AntibacterialStart: 01-21-2024 End: 24-92-4634nkyr 1 capsule by mouth in the morningnitrofurantoin, macrocrystal-monohydrate, (Macrobid) 100 MG capsule Indications: UTI symptoms Take 1 capsule (100 mg) by mouth in the morning and 1 capsule (100 mg) before bedtime. Do all this for 7 days. 14 capsule 01/21/2024 01/28/2024 ActiveStart: 11-19-2023 End: 54-91-2869qbhz 1 capsule by mouth in the morningnitrofurantoin, macrocrystal-monohydrate, (Macrobid) 100 MG capsule Indications: Urinary tract infection symptoms Take 1 capsule (100 mg) by mouth in the morning and 1 capsule (100 mg) before bedtime. Do all this for 7 days. 14 capsule 11/19/2023 11/26/2023 ActiveStart: 07-15-2023 End: 57-47-8978mgan 1 capsule by mouth twice dailyMacrobid 100 mg Cap 100 mg = 1 cap(s), Oral, BID, X 7 day(s), # 14 cap(s), Refills(s) 0, Pharmacy: [facility] #[id number], 160, cm, 07/15/23 12:40:00 EDT, Height/Length Dosing, 60, kg, 07/15/23 12:40:00 EDT, Weight Dosing Start Date: 07/15/23 Stop Date: 07/22/23 Status: Orderedondansetron 8 mg disintegrating oral tablet (4 sources)Serotonin-3 Receptor AntagonistStart: 88-42-6703zcwz 1 tablet by mouth every eight hours as neededOndansetron 8 MG 1 tablet on the tongue and allow to dissolve as needed Orally every 8 hours as needed for 3 days Sep, ActiveProbiotic Product (PROBIOTIC/PREBIOTIC/CRANBERRY PO) (20 sources)take 60 mg by mouth once dailyProbiotic Product (PROBIOTIC/PREBIOTIC/CRANBERRY PO) Take 60 mg by mouth Daily ActiveQUEtiapine 50 mg oral tablet (20 sources)Atypical AntipsychoticStart: 03-26-2019 End: 66-09-9077jfoo 1 tablet by mouth once daily at bedtimeQuetiapine 50 mg tablet Active 50 MG PO Daily at bedtime March 26, 2019 1:00am insomnia Complies with drug therapyrosuvastatin calcium 20 mg oral tablet (20 sources)HMG-CoA Reductase InhibitorStart: 08-28-2022 End: 82-55-1475ukjd 1 tablet by mouth once dailyRosuvastatin 20 mg tablet Active 20 MG PO Daily April 09, 2023 1:00am FreeTextSi tablet Orally Once a day; Note: Source Status: Taking; Provider: Windy Sheikh ( ) Complies with drug therapyStart: 12-12-2018 End: 47-47-7075cqsw 1 tablet by mouth once daily at bedtimeRosuvastatin (Crestor) 10 mg Tablet Discontinued 10 MG PO Daily at bedtime December 12, 2018 12:00am April 09, 2023 10:45am hyperlipidemiaStart: 04-10-2018 End: 26-41-8739cxkn 1 tablet by mouth at bedtimeRosuvastatin (Crestor) 10 mg Tablet Discontinued 10 MG PO Bedtime April 18, 2018 7:54am May 17, 2018 12:00am May 18, 2018 12:02amRosuvastatin Calcium Activesulfamethoxazole 800 mg / trimethoprim 160 mg oral tablet (18 sources)Dihydrofolate Reductase Inhibitor Antibacterial, Sulfonamide AntimicrobialStart: 04-06-2024 End: 42-00-1969Asowxjs D.S. 800 mg-160 mg Tab 1 tab(s), Oral, BID for 14 day(s), 28 tab(s), Refill(s) 0, [email or web address], 160, cm, 04/01/24 8:56:00 EST, Height/Length Dosing, 60, kg, 04/01/24 8:56:00 EST, Weight Dosing Start Date: 04/06/24 Stop Date: 04/20/24 Status: OrderedStart: 02-20-2024 End: 99-05-6930lyym 1 tablet by mouth once in the morning, then take 1 tablet by mouth once at bedtimesulfamethoxazole-trimethoprim (Bactrim DS) 800-160 MG per tablet Take 1 tablet by mouth in the morning and 1 tablet before bedtime. 02/20/2024 05/12/2024 Discontinued (Therapy completed)Start: 10-30-2023 End: 06-64-6581rrtm 1 tablet by mouth once in the morning, then take 1 tablet by mouth once at bedtimesulfamethoxazole-trimethoprim (Bactrim DS) 800-160 MG per tablet Indications: Acute cystitis without hematuria Take 1 tablet by mouth in the morning and 1 tablet before bedtime. Do all this for 7 days. 14 tablet 10/30/2023 11/06/2023 ActiveStart: 05-11-2023 End: 74-28-6988pgpl 1 tablet by mouth twice dailySulfamethoxazole-Trimethoprim 800-160 mg tablet Discontinued 1 TAB PO Twice daily 10 5 0 May 11, 2023 12:00am February 20, 2024 11:35amtopiramate 50 mg oral tablet (20 sources)Start: 85-49-3585Jprabhqema 50 mg tablet Active 25 MG PO Daily at bedtime November 26, 2024 10:03am Complies with drug therapyStart: 11-21-2021 End: 83-83-0776yekx 1 tablet by mouth once dailyTopiramate 50 mg tablet Discontinued 50 MG PO Daily November 21, 2021 12:00am November 26, 2024 10 :03am24 hr trospium chloride 60 mg extended release oral capsule (20 sources)Cholinergic Muscarinic AntagonistStart: 21-65-5787Gnoisejy 60 mg capsule,extended release 24hr Active 20 MG PO Daily December 03, 2024 11:50am must be taken on empty stomach at least 1 hour before a meal/food with water only Complies with drug therapyStart: 89-28-8005mhas 1 capsule by mouth every twenty-four hours in the morningtrospium (Sanctura XR) 60 MG 24 hour capsule Take 60 mg by mouth in the morning. 05/14/2024 ActiveStart: 03-07-2023 End: 96-33-0445nekn 1 capsule by mouth once daily 1 hour(s) before mealtime Trospium 60 mg capsule,extended release 24hr Discontinued 60 MG PO Daily April 09, 2023 1:00amOct2024 11:51am must be taken on empty stomach at least 1 hour before a meal/food with water only End: 29-36-6340cntx 3 tablets by mouth in the morningtrospium (Sanctura) 20 MG tablet Take 60 mg by mouth in the morning and 60 mg before bedtime. 08/11/2024 Discontinued (Therapy completed)ubrogepant 100 mg oral tablet (3 sources) End: 21-63-3392Txiiunkykv (Ubrelvy) 100 MG tablet Take 100 mg by mouth 10/22/2023 Discontinued (Therapy completed)vibegron 75 MG Oral Tablet (4 sources)Start: 12-45-8140bjaj 1 tablet by mouth once dailyvibegron 75 mg oral tablet 75 mg = 1 tab(s), Oral, Daily, # 30 tab(s), Refills(s) 11, Pharmacy: [facility], 160, cm, 04/14/24 12:55:00 EST, Height/Length Dosing, 61, kg, 04/14/24 12:55:00 EST, Weight Dosing Start Date: 07/16/24 Status: Ordered Quantity: 30.0 Unit: tab(s) Repeat number: 12Vitamin B-12 1000 MCG (7 sources)take 1 tablet by mouth once dailyVitamin B-12 1000 MCG 1 tablet Orally Once a day Active Completed/Discontinued Medications MedicationDrug Class(es)DatesSig (Normalized)Sig (Original)acetaminophen 325 mg oral tablet (20 sources)Start: 03-26-2019 End: 80-12-2439rqrp 325-650 mg by mouth once daily as needed for headache Acetaminophen 325 mg tablet Discontinued 325 - 650 MG PO Daily as needed for Headache March 26, 2019 5:28pm April 09, 2023 10:46amStart: 04-18-2018 End: 67-04-9368cmqt 1 tablet by mouth every four hours as needed for pain Acetaminophen 325 mg Tablet Discontinued 325 MG PO Q4H as needed for Pain 0 0 April 18, 2018 1:00am March 26, 2019 5:28pmcephalexin 500 mg oral capsule (14 sources)Cephalosporin AntibacterialStart: 11-22-2021 End: 40-53-0855pvrm 1 capsule by mouth three times dailyCephalexin 500 mg capsule Discontinued 500 MG PO Three times daily 15 5 0 November 22, 2021 12:00am April 09, 2023 10:46amciprofloxacin 500 mg oral tablet (11 sources)Quinolone AntimicrobialStart: 57-86-1384fpfw 1 tablet by mouth once dailyCipro 500 mg Tab 500 mg = 1 tab(s), Oral, Daily, Take 1 tablet the day before the procedure and 1 tablet after the procedure, # 2 tab(s), Refills(s) 0, Pharmacy: [facility], 160, cm, 07/16/24 10:45:00 EDT, Height/Length Dosing, 61, kg, 07/16/24 10:45:00 EDT, Weight Dosing Start Date: 07/16/24 Status: Ordered Quantity: 2.0 Unit: tab(s) Repeat number: 1Start: 01-23-2024 End: 96-62-8411okgpmcvzpyixn 500 mg Tab Refills(s) 0 Start Date: 01/29/24 Status: OrderedclonazePAM 0.5 mg oral tablet (20 sources)BenzodiazepineStart: 04-05-2018 End: 13-48-0775gikx 1 tablet by mouth twice dailyClonazepam 0.5 mg Tablet Discontinued 0.5 MG PO Twice daily December 12, 2018 12:00am November 08, 2024 12:11pmtake 1 tablet by mouth every twenty-four hoursclonazePAM 0.5 MG 1 tablet at bedtime Orally Once a day Activeclopidogrel 75 mg oral tablet (20 sources)P2Y12 Platelet InhibitorStart: 12-12-2018 End: 68-14-6815lmfn 1 tablet by mouth once dailyClopidogrel (Plavix) 75 mg tablet Discontinued 75 MG PO Daily 90 90 3 April 09, 2023 1:00am November 26, 2024 10:02am Stenosis of carotid artery Occlusion and stenosis of unspecified carotid arterydocusate sodium 100 mg oral capsule (20 sources)Start: 04-18-2018 End: 07-12-9936atkn 1 capsule by mouth twice daily as [...] oral tablet (20 sources)Thiazide DiureticStart: 12-12-2018 End: 54-97-0609jcfm 1 tablet by mouth once daily in the morning Hydrochlorothiazide 12.5 mg Tablet Discontinued 12.5 MG PO Every morning December 12, 2018 12:00amFebruary 2020 1:05pm htntake 1 capsule by mouth once dailyhydroCHLOROthiazide (MICROZIDE) 12.5 mg capsule Take 1 capsule (12.5 mg total) by mouth daily. ActivehydroCHLOROthiazide 12.5 mg / lisinopril 10 mg oral tablet (20 sources)Thiazide Diuretic, Angiotensin Converting Enzyme InhibitorStart: 04-05-2018 End: 97-27-0847rmsh 1 tablet by mouth once daily in the morningLisinopril- Hydrochlorothiazide 10-12.5 mg tablet Discontinued 1 TAB PO Every morning March 5:28pm April 09, 2023 10:45am htntake 10-12.5 mg by mouth once in the morninglisinopril-hydroCHLOROthiazide (PRINZIDE,ZESTORETIC) 10-12.5 mg per tablet Take 1 tablet by mouth in the morning. ActiveLisinopril- hydroCHLOROthiazide Activeibuprofen 800 mg oral tablet (16 sources)Nonsteroidal Anti-inflammatory DrugStart: 04-05-2018 End: 94-43-8551hljy 1 tablet by mouth three times dailyIbuprofen 800 mg Tablet Discontinued 800 MG PO Three times daily April 05, 2018 1:00am April 18, 2018 7:51am24 hr metoprolol succinate 25 mg extended release oral capsule (20 sources)beta-Adrenergic BlockerStart: 04-09-2023 End: 41-25-7556xkqz 1 capsule by mouth once dailyMetoprolol Succinate 25 mg capsule,sprinkle,ER 24hr Discontinued 25 MG PO Daily April 0941:00am November 08, 2024 12:11pm FreeTextSi capsule Orally Once a day; Note: Source Status: Taking; Provider: Windy Sheikh ( )Start: 03-07-2023 End: 48-90-2158hrkg 1 tablet by mouth once dailyMetoprolol Succinate 25 mg tablet extended release 24 hr Active 25 MG PO daily November 08487261:00am Complies with drug therapyStart: 01-28-2023 End: 80-95-3905yfhx 1 tablet by mouth every twenty-four hours in the morning metoprolol succinate XL (Toprol-XL) 25 MG 24 hr tablet Indications: Primary hypertension (CMS/HCC) take 1 tablet by mouth IN THE MORNING DO NOT CRUSH OR CHEW 90 tablet 1 07/22/2023 10/22/2023 Discontinued (Reorder)Start: 04-05-2018 End: 98-48-8920oejn 1 tablet by mouth once daily in the morningMetoprolol Succinate 25 mg tablet extended release 24 hr Discontinued 25 MG PO Every morning March 26, 2019 5:33pm November 22, 2021 1:21pm htntake 1 capsule by mouth once dailyMetoprolol Succinate 25 MG 1 capsule Orally Once a day for 30 day(s) Activenaproxen 500 mg oral tablet (16 sources)Nonsteroidal Anti-inflammatory DrugStart: 04-05-2018 End: 64-35-2164ekcv 1 tablet by mouth twice daily as needed for painNaproxen 500 mg Tablet Discontinued 500 MG PO Twice daily as needed for Pain April 05, 2018 1:00am April 18, 2018 7:51amphenazopyridine hydrochloride 200 mg oral tablet (9 sources)Start: 05-11-2023 End: 62-54-7270nmwc 1 tablet by mouth every eight hoursPhenazopyridine (Pyridium) 200 mg tablet Discontinued 200 MG PO Every 8 hours 6 2 0 May 11, 2023 12:00am November 08, 2024 12:10pmpotassium chloride 10 meq extended release oral capsule (20 sources)Start: 06-64-3361Wwcdomdma Chloride (Siz-Novj-Xbj M10) 10 mEq oral tablet, extended release Refills(s) 0 Start Date:03/07/23 Status: Ordered Repeat number: 1Start: 01-43-1472Buhywmozk Chloride (Kat-Wdcl-Rts M10) 10 mEq oral tablet, extended release Refills(s) 0 Start Date:03/07/23 Status: OrderedStart: 02-13-2023 End: 57-78-3619wodebadym chloride (KLOR-CON M 10) 10 MEQ CR tablet Take 1 tablet (10 mEq total) by mouth. 02/13/2023 02/13/2024 ActiveStart: 02-07-2023 End: 58-77-3069grag 1 capsule by mouth once dailyPotassium Chloride 10 mEq capsule, extended release Discontinued 10 MEQ PO Daily April 09, 2023 1:00am November 02, 2024 2:02pmtraZODone hydrochloride 100 mg oral tablet (20 sources)Serotonin Reuptake InhibitorStart: 03-26-2019 End: 28-14-5741Qkzcbmbdd 100 mg tablet Discontinued March 26, 2019 1:00am March 26, 2019 6:06pmStart: 03-26-2019 End: 72-16-9143Aslqtlgnk 100 mg tablet Discontinued TABLET March 26, 2019 12:00am March 26, 2019 5:06pmStart: 03-26-2019 End: 66-32-5205Vwfnjptqb Discontinued TABLET March 26, 2019 12:00am March 26, 2019 5:06pmStart: 03-26-2019 End: 24-37-0167Mhjspwsmw Discontinued TABLET March 26, 2019 1:00am March 26, 2019 6:06pmStart: 15-74-8302mvdq 1 tablet by mouth every twenty-four hourstraZODone [...] acetonide 40 mg/ml injectable suspension (10 sources)CorticosteroidStart: 57-39-5604Jidppsw-40 May, 20 mgVibegron 75 MG tablet (3 sources)Start: 07-16-2024 End: 42-99-1701giza 1 tablet by mouth once dailyVibegron 75 MG tablet Take 75 mg by mouth Daily 07/16/2024 08/11/2024 Discontinued (Cost of medication)Start: 70-58-8737yvtu 1 tablet by mouth once dailyVibegron 75 MG tablet Take 75 mg by mouth Daily 07/16/2024 Activevitamin b12 2 mg extended release oral tablet (20 sources)Vitamin N63Gnogb: 11-22-2021 End: 94-95-8771Cjodqfryuybohz (Vitamin B-12) (Vitamin B-12) 2,000 mcg Tablet Extended Release Discontinued 1000 MCG PO Daily 1 0 November 22, 2021 4:44pm April 09, 2023 10:46amStart: 03-23-2020 End: 09-57-8062anzf 1 tablet by mouth once dailyCyanocobalamin (Vitamin [...] kidney; Translations: [Acute kidney failure, unspecified] Onset: 230001-46-8562AvcychufFlzjb cerebrovascular disease (20 sources)Cerebrovascular accident due to thrombus of left middle cerebral artery; Translations: [Cerebral infarction due to thrombosis of left middle cerebral artery]Onset: 824642-96-3684QbpaszqHkjnq cerebrovascular disease (1 source)Acute cerebrovascular diseaseOnset: 24-87-2793Cwnuwqj disorders (20 sources)Mixed anxiety and depressive disorder; Translations: [Anxiety disorder, unspecified]Onset: 639052-50-6170JqqytggQrkawhw dysrhythmias (20 sources)Bradycardia; Translations: [Bradycardia, unspecified]11-21-2021 EpisodicChronic kidney disease (1 source)Chronic kidney disease; Translations: [CHRONIC KIDNEY DISEASE STAGE 3A]Onset: 66-90-7087Hhtklcvvfq heart failure; nonhypertensive (20 sources)Heart failure, unspecified; Translations: [Heart failure]Onset: 335354-04-4684WwxhvfbQfpbhapr atherosclerosis and other heart disease (20 sources)Atherosclerotic heart disease of [place] coronary artery without angina pectoris; Translations: [Coronary atherosclerosis]Onset: 03-23-2020 ChronicDeficiency and other anemia (1 source)Iron deficiency anemia secondary to blood loss (chronic); Translations: [IRON DEFIC ANEMIA SEC BLD LOSS CHRN]Onset: 00-56-7827Yaytvtn Deficiency and other anemia (16 sources)Anemia; Translations: [Anemia, unspecified]45-76-2945Lnyxhxdt Delirium, dementia, and amnestic and other cognitive disorders (6 sources)Progressive aphasia; 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]87-54-6421Vvfffqc Disorders of lipid metabolism (20 sources)Hyperlipidemia; Translations: [Hyperlipidemia, unspecified]Onset: 861765-67-6643MstnyjbNatpnkuox hypertension (20 sources)Hypertensive disorder; Translations: [Essential (primary) hypertension]Onset: 06-22-2009 Resolved: 360748-86-4647ZvbbaleKgjdt and electrolyte disorders (2 sources)Hypokalemia; Translations: [Dehydration]Onset: 28-05-0020Agdpmpbx Genitourinary symptoms and ill-defined conditions (20 sources)Incontinence without sensory awareness; Translations: [Overflow incontinence of urine]Onset: 04-85-5764XjtkgtwNnbeuqny; including migraine (20 sources)Migraine with aura; Translations: [Migraine with aura, not intractable, without status migrainosus]Onset: 803271-48-5419Nazjjyh Headache; including migraine (20 sources)Aigbsvrh43-82-2858GnwjthpdBwffqpni; including migraine (1 source)Headache; including migraine; Translations: [HEADACHE UNSPECIFIED] Onset: 92-98-3918Scbvk valve disorders (1 source)Nonrheumatic mitral (valve) insufficiency; Translations: [NONRHEUMATIC MITRAL INSUFFICIENCY]Onset: 45-33-1431UrbnjtiYxekbwiwqvha with complications and secondary hypertension (1 source)Hypertensive chronic kidney disease with stage 1 through stage 4 chronic kidney disease, or unspecified chronic kidney disease; Translations: [HTN CKD W/STAGE 1-4 CKD/UNS CKD]Onset: 92-49-4619HkzznheQtfylanzkbpsi and screening for infectious disease (3 sources)Contact with and (suspected) exposure to other viral communicable diseases; Translations: [Contact with or exposure to other viral diseases] 60-06-1746TnlcmmbqOxgiyvfwqclf injury (18 sources)History of traumatic brain injury; Translations: [Personal history of traumatic brain injury]68-85-3323YcdcshniRifo effects of cerebrovascular disease (20 sources)History of cerebrovascular accident with residual deficit; Translations: [Unspecified sequelae of cerebral infarction]Onset: 02-20-2023 04-85-2339VwtjoeiOxpugggtnaslx mental health disorders (20 sources)Psychophysiologic insomnia; Translations: [Psychophysiologic insomnia]Onset: 409615-19-3442MikbupuPkbf disorders (20 sources)Major depressive disorder, single episode, unspecified; Translations: [Recurrent major depression in full remission]Onset: 08-01-2021 Resolved: 500611-46-6433VkkvvdlAhuhwbxhf or stenosis of precerebral arteries (20 sources)Bilateral stenosis of carotid arteries; Translations: [Occlusion and stenosis of bilateral carotid arteries]Onset: 02-24-2020 Resolved: 54-76-1255TfoibpcGbfdozxahezfqc (20 sources)Arthritis of hand; Translations: [Primary osteoarthritis, right hand]Onset: 04-09-2007 Resolved: 99-15-2993FecmpamFaodi aftercare (2 sources)Drug therapy finding; Translations: [Other mcfp (current) drug therapy]49-25-7807ZqgogzklVqtfc and ill-defined cerebrovascular disease (14 sources)Cerebrovascular disease; Translations: [Cerebrovascular disease, unspecified]ChronicOther and ill-defined cerebrovascular disease (1 source)Cerebrovascular disease, unspecified; Translations: [CEREBROVASCULAR DISEASE UNSPECIFIED]Onset: 34-89-6872NznegjgAyzjf circulatory disease (20 sources)History of cardiovascular surgery; Translations: [Presence of other cardiac implants and grafts]Onset: 036195-38-9393FyltatuXuaup circulatory disease (7 sources)Stented artery; Translations: [Presence of other vascular implants and grafts]81-36-4559DrkiiymSliix circulatory disease (2 sources)Presence of other vascular implants and grafts; Translations: [Other postprocedural status]31-04-8711AfrrwysHbkbw circulatory disease (12 sources)History of cerebrovascular accident due to ischemia; Translations: [Personal history of transient ischemic attack (TIA), and cerebral 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]74-80-0058QulztzvaAierl connective tissue disease (1 source)Presence of right artificial knee joint; Translations: [PRESENCE RT ARTIFICIAL KNEE JOINT]Onset: 61-37-7669YyfmmevYzzbu connective tissue disease (1 source)Presence of unspecified artificial knee joint; Translations: [PRESENCE UNS ARTIFICIAL KNEE JOINT]Onset: 65-43-7286LusangiZeiyu connective tissue disease (4 sources)Other specified soft tissue disorders; Translations: [OTHER SPEC SOFT TISSUE DISORDERS]Onset: 08-33-7507IaildamjYosdh diseases of bladder and urethra (3 sources)Urethral stricture; Translations: [Unspecified urethral stricture, female]Onset: 31-92-9232CuztqcspOnfku gastrointestinal disorders (16 sources)Dysphagia; Translations: [Dysphagia, unspecified]69-18-9342Tybpbmrh Other gastrointestinal disorders (1 source)Dysphagia, oropharyngeal phase; Translations: [Dysphagia, oropharyngeal phase]Onset: 84-60-1000UqqwjnmtGkrus hereditary and degenerative nervous system conditions (16 sources)Dystonia; Translations: [Dystonia, unspecified]67-05-8449Wzyjwro Other lower respiratory disease (2 sources)Shortness of breath; Translations: [Shortness of breath]Onset: 59-13-3183ZxgezipvTujmo nervous system disorders (1 source)Difficulty in walking, not elsewhere classified; Translations: [DIFFICULTY IN WALKING NEC]Onset: 70-59-2328XodifsjSmnvn nervous system disorders (1 source)Aphasia; Translations: [APHASIA]Onset: 55-53-3484GmamlxgSqxwo nervous system disorders (8 sources)Expressive dysphasia; Translations: [Aphasia]32-45-1648SoeultlNtjza nervous system disorders (1 source)Aphasia; Translations: [Aphasia]07-63-5485EhcqmsdTcuxb nervous system disorders (1 source)Unspecified abnormalities of gait and mobility; Translations: [Unspecified abnormalities of gait and mobility]Onset: 29-97-7023BbnjzvqzMiypn nervous system disorders (19 sources)Ataxia; Translations: [Ataxia, unspecified]66-45-1940WxtgzcwcRihcm nervous system disorders (11 sources)Abnormal gait; Translations: [Unsteadiness on feet]06-07-2024 EpisodicOther skin disorders (1 source)Localized swelling, mass and lump, left lower limb; Translations: [LOC SWELL MASS LUMP LT LOWER LIMB]Onset: 18-62-5038PebiqvfnOsueshe cyst (7 sources)Unspecified ovarian cyst, unspecified side; Translations: [Unspecified ovarian cyst, right side]Onset: 46-09-3144AvgpjtlvQbxxopbnuv and visceral atherosclerosis (20 sources)Peripheral vascular disease, unspecified; Translations: [Peripheral vascular disease]Onset: 335984-01-9469AzazzzoPcguehpr codes; unclassified (4 sources)Insomnia; Translations: [Other insomnia]02-53-8773EqqmbcwAhvmrjtj codes; unclassified (2 sources)Obstructive sleep apnea syndrome; Translations: [Obstructive sleep apnea (adult) (pediatric)]49-57-1825BkrjnmcYjnuelcl codes; unclassified (16 sources)Confusional state; Translations: [Disorientation, unspecified] 40-29-9860WgghuvrmDmijhzep codes; unclassified (15 sources)Altered mental status; Translations: [Altered mental status, unspecified]31-66-6535WfmeejqgKkpudcze codes; unclassified (4 sources)Edema of lower extremity; Translations: [Localized edema]02-20-2024 EpisodicResidual codes; unclassified (1 source)Localized edema; Translations: [Edema]42-64-0467JpvqeieqWhwrnqgr codes; unclassified (10 sources)Memory impairment; Translations: [Other amnesia]25-60-6090Qlimkezu Residual codes; unclassified (2 sources)Staring; Translations: [Transient alteration of awareness]06-15-2024 EpisodicUnclassified (3 sources)COUGH, UNSPECIFIED; Translations: [COUGH, UNSPECIFIED]Onset: 61-71-9155Oxlnxdcyaiga (1 source)CHRN KIDNEY DISEASE STG 3 UNSP; Translations: [CHRN KIDNEY DISEASE STG 3 UNSP]Onset: 62-89-7566Pipytade veins of lower extremity (18 sources)Varicose veins of lower extremity; Translations: [Varicose veins of bilateral lower extremities with other complications]Onset: 01-34-1273Wlyfzzds Viral infection (2 sources)COVID-19; Translations: [COVID-19]Onset: 09-07-2021 Resolved: 09-22-2021 Past or Other Problems Problem ClassificationProblemDateDocumented DateEpisodic/Chronic Administrative/social admission (20 sources)Other reduced mobility; Translations: [Impaired mobility and activities of daily living]Onset: 820081-04-4088BrhdxxehHdtjsoysn infection; unspecified site (8 sources)Infection due to ESBL bacteriaOnset: 695951-20-0621Ecubztye Comment on above:ESBL E coli urineCalculus of urinary tract (1 source)Personal history of urinary calculi; Translations: [PERSONAL HISTORY OF URINARY CALCULI]Onset: 10-52-4933JzihuhurGobffagbzk associated with dizziness or vertigo (20 sources)Dizziness and giddiness; Translations: [Dizziness and giddiness] Onset: 546587-80-7079NpvhddtiNduwkfbnks and other anemia (4 sources)Anemia, unspecified; Translations: [ANEMIA UNSPECIFIED]Onset: 58-97-3834BsrkmrvvZ Codes: Fall (2 sources)Fall on same level, unspecified, initial encounter; Translations: [Fall (on) (from) unspecified stairs and steps, initial encounter]Onset: 27-97-5213OiqnnziyLbdqdjnn of upper limb (6 sources)Other fractures of lower end of left radius, subsequent encounter for closed fracture with routine healing; Translations: [Unspecified fracture of the lower end of left radius, initial encounter for closed fracture]Onset: 04-03-2021 Resolved: 28-97-3406DmhtjyreVsezapid of upper limb (3 sources)Nondisplaced fracture of proximal phalanx of right middle finger, initial encounter for closed fractureOnset: 07-12-2021 Resolved: 59-75-7328KkzaddylRkdhujqghubszget hemorrhage (3 sources)Gastrointestinal hemorrhage, unspecified; Translations: [Melena] Onset: 73-94-0416RhrbdqkpCixnicgqdjirw symptoms and ill-defined conditions (20 sources)Dysuria; Translations: [Dysuria]Onset: 2023 Resolved: 58-37-8128ZzesazsfQqdhfre and fatigue (5 sources)Weakness; Translations: [WEAKNESS]Onset: 57-61-8650PxvhygalWdqc disorders (20 sources)Mood disordersOnset: 08-25-2018 Resolved: Nausea and vomiting (1 source)Nausea with vomiting, unspecifiedOnset: 09-22-2021 Resolved: 14-42-0224FvohgsduTzhlwhvberh deficiencies (20 sources)Deficiency of other specified B group vitamins; Translations: [Iron deficiency]Onset: 44-65-3621XagsfuxaDcebz aftercare (1 source)long term care pharmacist (current) use of aspirin; Translations: [PRISON CURRENT USE OF ASPIRIN]Onset: 83-13-4201VxoinzjzNhchk aftercare (1 source)Other mcfp (current) drug therapy; Translations: [OTH TOPPIECE CHOPPER CURRENT DRUG THERAPY]Onset: 32-40-5762OmvrffdqSvnua aftercare (1 source)Encounter for follow-up examination after completed treatment for conditions other than malignant neoplasm; Translations: [ENC F/U EX AFTR CMPL TX NOT MAL SU]Onset: 46-95-1135XswdqctgKgrpm aftercare (1 source)FCI (current) use of antithrombotics/antiplatelets; Translations: [PRISON 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/ANTIPLATLETS]Onset: 17-98-3540Yrnnwtnu Other aftercare (20 sources)Post-discharge follow-up; Translations: [Encounter for follow-up examination after completed treatment for conditions other than malignant neoplasm]Onset: 03-06-2023 Resolved: 458272-40-1273OynpetttRignw circulatory disease (1 source)Personal history of transient ischemic attack (TIA), and cerebral 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; Translations: [PERS HX TIA AND CI NO RESID DEFICIT]Onset: 55-77-4194MujbdnbwZxffa connective tissue disease (3 sources)Pain in right handOnset: 07-12-2021 Resolved: 85-03-9566GictzsndUbpmg connective tissue disease (20 sources)Spasm; Translations: [Other muscle spasm]Onset: EpisodicOther ear and sense organ disorders (20 sources)Acute otitis externa; Translations: [Diffuse otitis externa, bilateral]Onset: 2024 Resolved: 139273-40-3758QdrhhrhtPbtls gastrointestinal disorders (1 source)Bariatric surgery status; Translations: [BARIATRIC SURGERY STATUS] Onset: 07-74-7387IwquwzzbYwiyy gastrointestinal disorders (20 sources)Oropharyngeal dysphagia; Translations: [Dysphagia, oropharyngeal phase]Onset: 597651-31-1625ZvwhmeabSxhpe gastrointestinal disorders (2 sources)Dysphagia, oral phase; Translations: [Dysphagia, oral phase]Onset: 50-56-6935DrinjmtuMljvo injuries and conditions due to external causes (1 source)History of falling; Translations: [HISTORY OF FALLING]Onset: 11-07-2339DmfvrgvjFkagp lower respiratory disease (1 source)Other nonspecific abnormal finding of lung field; Translations: [OTH NONSPECIFIC ABN FIND LNG FIELD]Onset: 31-88-3792JyzvvpkvRbncs nervous system disorders (20 sources)White matter disease; Translations: [White matter disease, unspecified]Onset: 19-10-7491ZraompobQdxgb nervous system disorders (20 sources)Dysarthria; Translations: [Dysarthria and anarthria]Onset: 271686-24-6944SixrijyyCybix nervous system disorders (1 source)Functional gait abnormality; Translations: [Unspecified abnormalities of gait and mobility]89-66-5139HyhqjoyiGaoqw non-traumatic joint disorders (3 sources)Pain in left wrist; Translations: [PAIN IN LEFT WRIST]Onset: 54-55-1909IdzphjdoHbkba screening for suspected conditions (not mental disorders or infectious disease) (20 sources)Patient encounter status; Translations: [Encounter for screening for malignant neoplasm of colon]Onset: 319666-82-7137HyniowhwGqljp upper respiratory disease (2 sources)Pain in throat; Translations: [Pain in throat]Onset: 09-11-2023 EpisodicOther upper respiratory infections (20 sources)Acute upper respiratory infection; Translations: [Acute upper respiratory infection, unspecified]Onset: 02-20-2023 Resolved: 712271-30-4774CkvmjnhfWhvccpjx codes; unclassified (5 sources)Other specified postprocedural statesOnset: 05-03-2021 Resolved: 61-98-7565LmxnwornMoawxfgc codes; unclassified (7 sources)Altered mental status, unspecified; Translations: [Altered mental status]Onset: 427512-43-6308GsbfykqnPlbejprs codes; unclassified (1 source)Acquired absence of other specified parts of digestive tract; Translations: [ACQ ABSENCE OTH PART DIGESTV TRACT]Onset: 30-17-1804Vydtmodo Residual codes; unclassified (1 source)Acquired absence of both cervix and uterus; Translations: [ACQUIRED ABSENCE BOTH CERVIX AND UTERUS]Onset: 74-66-6436CnsdyhwaYlfwvtoy codes; unclassified (1 source)Sleep disorder, unspecified; Translations: [SLEEP DISORDER UNSPECIFIED]Onset: 32-85-6682OpwitzjhRefejifm codes; unclassified (3 sources)Disorientation, unspecified; Translations: [DISORIENTATION UNSPECIFIED]Onset: 95-76-0830NhpitruvBngqrknm codes; unclassified (1 source)Pain, unspecified; Translations: [Pain, unspecified]Onset: 02-16-2023 EpisodicScreening and history of mental health and substance abuse codes (1 source)Personal history of nicotine dependence; Translations: [PERSONAL HISTORY OF NICOTINE DEPEND]Onset: 52-83-6550SbyqseslMmcwgsyuzaq; intervertebral disc disorders; other back problems (1 source)Cervicalgia; Translations: [CERVICALGIA]Onset: 44-85-3912Kppjxzcg Unclassified (1 source)COUGH, UNSPECIFIED; Translations: [COUGH, UNSPECIFIED]Onset: 39-15-3957Rsmnijohxahh (20 sources)Onset: 321398-03-1449Uwoliks tract infections (20 sources)Urinary tract infection, site not specified; Translations: [Urinary tract infectious disease]Onset: 11-28-2021 Resolved: 63-24-5275Yzsrkelp Results Test NameValueInterpretationReference RangeFacilityC Urineon 77-09-8713Rkcejyoj identified Cx Nom (U)Microbiology PROCEDURE: Urine Culture [R1] SOURCE: U Random BODY SITE: COLLECTED DATE/TIME: 11/17/2024 14:57 EDT RECEIVED DATE/TIME: 11/18/2024 17:21 EDT START DATE/TIME: 11/18/2024 17:21 EDT FREE TEXT SOURCE: Ingrid V BLOCK SAW OPERATOR, FACILITIES ASSISTANT-C, Orvicky V BLOCK SAW OPERATOR, FACILITIES ASSISTANT-C, Carmen X Carmen X FINAL REPORTS Final Report [] Verified Date/Time: 11/20/2024 10:56 EDT <10,000 cfu/ml Mixed skin contaminants Performing Locations R1: This test was performed at: [facility], [address] [place] [address], [id number] , , HkgdfiIilozeSCCI Hospital LimaComment on above:Performed By: #### [id number] #### [facility] [address] [place] [id number] Office/Clinic Noteon 83-61-5543Kqmbcbc Office/Clinic NoteUrology Office/Clinic Note Chief Complaint UTI [...] issues, which sounds like she is seeing RIVET HAMMER MACHINE OPERATOR for. Does mentionpossible EGD in future. She [...] with voice recognition artificial intelligence software, specifically [employer], [employer] and or [employer]. Substitutions may have occurred due to the [...] Tab, Chewed, Daily BACLOFEN (more content not included)...[facility] LimaComment on above:Result Comment: Electronically Signed By: MITRA Quintero APRN, Carmen Rm\.br\Date and Time Signed: 11/17/24 14:52 EDT\.br\Electronically Co-Signed By: Zeinab Downs\.br\Date and Time Co-Signed: 11/17/24 14:44 EDTUrology Office/Clinic Noteon 62-62-3515Ydegxnf Office/Clinic NoteUrology Office/Clinic Note Chief Complaint follow [...] with voice recognition artificial intelligence software, specifically [employer], [employer] and or [employer]. Substitutions may have occurred due to the [...] and denies UTI sxs since then Orders: 04272 Measure Post Void residual urine and/or bladder capacity by US- non-imaging Urnls Dip Stick Auto w/o Microscopy POC 43242 Follow-up With When Contact Information MITRA Quintero [...] mg ER Tab, Oral, Daily Potassium Chloride (Jla-Flmd-Ckx M10) 10 mEq oral tablet, extended release [...] Recorded influenza virus va (more content not included)...[facility] LimaComment on above:Result Comment: Electronically Signed By: MITRA Quintero APRN, Aurora X\.br\Date and Time Signed: 10/08/24 09:45 EDTMain OR Intraoperative Recordon 03-25-1782Uleq OR Intraoperative RecordMain OR Intraoperative Record IntraOp Document Type FTURO Summary Primary Physician: Alexandr OVALLE MD Finalized Date/Time: 09/22/24 09:53:39 Pt. Name: BALTAOZZIEO.B./Sex: 1950 Female Med Rec #: [id number] Physician: Alexandr OVALLE MD Financial #: [id number] Pt. Type: O Room/Bed: / Admit/Disch: 09/22/24 09:00:56 - Institution: Case Times FTURO Entry 1 Patient Times In Room 09/22/24 09:29:00 Out Room 09/22/24 09:50:00 Procedure Times Start 09/22/24 09:42:00 Stop 09/22/24 09:45:00 Anesthesia Times Last Modified By: Eulalio BATISTA, Reina Matthew 09/22/24 09:45:52 General Comments: BOTOX LOT#: [id number], EXP DATE: 11/2026 -Elizabeth LINK RN Case Attendance FTURO Entry 1 Entry 2 Entry 3 Case Attendee Alexandr OVALLE MD, RN, Reina Stahl CST, Onelia Matthew Role Performed Surgeon - Primary Chaplain Resident - Primary Scrub - Primary Time In [...] Signatures Signed By: Reina Link RN 09/22/24 09:53NoThe Bellevue HospitalMain OR Preoperative Recordon 45-00-1470Satx OR Preoperative RecordMain OR Preoperative Record Holding Area Document Type FTURO Summary Primary Physician: Alexandr OVALLE MD Finalized Date/Time: 09/22/24 09:40:20 Pt. Name: BALTAOZZIE/Sex: 1950 Female Med Rec #: [id number] Physician: Alexandr OVALLE MD Financial #: [id number] Pt. Type: O Room/Bed: / Admit/Disch: 09/22/24 [...] Complaints of Pain: No Skin Integrity Intact, Lutsen, Warm, & Dry Vitals - EU Blood Pressure 144/75 Pulse 83 bpm Respirations 18 br/min SPO2 98 % Additional Other (See Comment) Specimens Comment ua dip Specimens Collected Last Modified By: Wendi Sesay LPN 09/22/24 09:35:12 Finalized By: Wendi Sesay LPN Document Signatures Signed By: Wendi Sesay LPN 09/22/24 09:40[facility] Hospital LimaOperative Reporton 92-22-5296Mxblndmwc ReportOperative Report Patient: OZZIE GIFFORD Age: 74 [...] discharged home with antibiotic coverage, Follow up arranged.[facility]I Hospital LimaComment on above:Result Comment: Electronically Signed By: VASQUEZ VIDES, Alexandr Banks.br\Date and Time Signed: 09/22/24 09:49 EDTC Urineon 50-61-3699Hbomjmdw identified Cx Nom (U)Microbiology PROCEDURE: Urine Culture [...] Locations R1: This test was performed at: [facility], [address] [place] [address], [address] [place] [address], RimqxiIyteghSCCI Hospital LimaComment on above:Performed By: #### [id number] #### [facility] [address] [place] [id number] ECHO DOPPLER COMPLETEon 72-59-7906[place]yeHarned, [place] [address] Cardiology Report Signed Patient: OZZIE GIFFORD MR#: [id number] : 1950 Acct:[id number] Age/Sex: 74 / F ADM Date: 08/20/24 Loc: CARD Attending Dr: RUBEN SALVADOR Ordering Physician: RUBEN SALVADOR Date of Service: 08/20/24 Procedure(s): CA echo doppler complete Accession Number(s): [id number] cc: Cindy Collado 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; RUBEN SALVADOR Patient Name: OZZIE GIFFORD MR#: [id number] : 1950 Exam Date: 08/20/2024 Ordering Doctor: [...] Area (VTI): 1.78 cm2, 1.78 cm2 Deceleration [place]: Pressure Half-Time: Peak Velocity(Antegrade Flow): 1.37 m/s Peak Gradient(Antegrade Flow): 7.52 mm[Hg] Mean Velocity(Antegrade Flow): 1.02 m/s Mean Gradient(Antegrade Flow): 4.60 mm[Hg] Velocity Time Integral: 37.24 cm Tricuspid Valve Peak Velocity (Regurgitant Flow): 2.49 m/s, 2.93 m/s Peak Velocity: Pulmonic Valve Mean Gradient: Mean Velocity: Peak Velocity: 0.78 m/s Peak Gradient: 2. (more content not included)...TBHRadiology, Radiologist, MD - 08/21/2024 [place] [address] Cardiology Report Signed Patient: OZZIE GIFFORD MR#: [id number] : 1950 Acct:[id number] Age/Sex: 74 / F ADM Date: 08/20/24 Loc: CARD Attending Dr: RUBEN SALVADOR Ordering Physician: RUBEN SALVADOR Date of Service: 08/20/24 Procedure(s): CA echo doppler complete Accession Number(s): [id number] cc: Cindy Collado 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; RUBEN SALVADOR Patient Name: OZZIE GIFFORD MR#: [id number] : 1950 Exam Date: 08/20/2024 Ordering Doctor: [...] Area (VTI): 1.78 cm2, 1.78 cm2 Deceleration [place]: Pressure Half-Time: Peak Velocity(Antegrade Flow): 1.37 m/s [...] M.D. Signed By: 08/21/241828 DD/ 28 TD/TT: Backend Java Developer: [facility] HospitalRadiology Study observation (narrative)Wright Memorial HospitalCA ECHO DOPPLER COMPLETEOrdered By: Radiologist Radiology on 13-31-1986FGTM [employer] Work Phone: H&P Updateon 08-18-2024H&P UpdateH&P Update [...] procedure. Health Status Procedure history: Colonoscopy (procedure) (614813366) on 05/12/2021 at 70 Years. Knee replacement (194255193). Breast surgery (6931018538). Hysterectomy (755145255). Gastric bypass (4185380445). Social History Social & Psychosocial Habits Tobacco [...] procedure, # 2 tab(s), Refills(s) 0, Pharmacy: [facility], 160, cm,07/16/24 10:45:00 EDT, Height/Length Dosing, 61, kg, 07/16/24 10:45:0... Estrace 0.1 mg/g Cream: See Instructions, 42.5 gm, Refill(s) 6, apply a pea- sized amount vaginally and around the urethra nightly x 3 weeks, then 3x per week thereafter, [facility], 160, cm, 04/01/24 8:56:00 EST, Height/Length Dosing, 60, kg, 04/01/24 8:56:00... Myrbetriq 50 mg oral tablet, extended release: 50 mg = 1 tab(s), Oral, Daily, X 30 day(s), # 30 tab(s), Refills(s) 11, Pharmacy: [facility], 160, cm, 04/14/24 12:55:00 EST, Height/Length Dosing, 61, kg, 04/14/24 12:55:00 EST, Weight Dosing methenamine hippurate 1 g oral tablet: 1 gm = 1 tab(s), Oral, BID, X 30 day(s), # 60 tab(s), Refills(s) 11, Pharmacy: [facility], 160, cm, 04/14/24 12:55:00 EST, Height/Length Dosing,61, kg, 04/14/24 12:55:00 EST, Weight Dosing vibegron 75 mg oral tablet: 75 mg = 1 tab(s), Oral, Daily, # 30 tab(s), Refills(s) 11, Pharmacy: [facility], 160, cm, 04/14/24 12:55:00 EST, Height/Length Dosing, 61, kg, 04/14/24 12:55:00 EST, Weight Dosing Documented Medications Documented BACLOFEN 20MG TAB: BACLOFEN 20MG TAB ClonazePAM 0.5 mg Tab: Refills(s) 0 FeroSul 325 mg oral tablet: mg tab(s), Oral, TID, Refills(s) 0 Lasix 20 mg Tab: 10 mg = 0.5 tab(s), Oral, Daily Potassium Chloride (Lqs-Aohp-Ozo M10) 10 mEq oral tablet, extended release: [...] = 1 tab(s), Oral, Daily Potassium Chloride (Nxo-Svvu-Nva M10) 10 mEq oral tablet, extended release quetiapine 50 mg oral tablet rosuvastatin 20 mg Tab topiramate 50 mg Tab vibegron 75 mg oral tablet 75 mg = 1 tab(s), Oral, Daily Vitamin C See Instructions Problem list: All Problems Stroke / SNOMED CT 093827875 / Confirmed Headache / SNOMED CT 63629067 / Confirmed Hypertension / SNOMED CT 1721063906 / Confirmed Dysuria / SNOMED CT 66295088 / Confirmed Incontinence without sensory awareness / SNOMED CT 7400919722 / Confirmed White matter disease / SNOMED CT 9447300215 / Confirmed UTI (urinary tract infection) / SNOMED CT 982023180 / Confirmed Recurrent UTI / SNOMED CT 300228222 / Confirmed ESBL (extended spectrum beta-lactamase) producing bacteria infection / SNOMED CT 4044524367 / Confirmed ESBL E coli urine Canceled: Mixed incontinence / SNOMED CT 03200772, Active Problems (9) Dysuria ESBL (extended spectrum beta-lactamase) producing bacteria infection Headache Hypertension Incontinence without sensory awareness Recurrent UTI Stroke UTI (urinary tract infection) White matter diseaseNoThe Bellevue HospitalComment on above:Result Comment: Electronically Signed By: Alexandr OVALLE MD\.br\Date and Time Signed: 08/18/24 07:59 EDTMain OR Intraoperative Recordon 00-93-5594Exfc OR Intraoperative RecordMain OR Intraoperative Record IntraOp Document Type FTURO Summary Primary Physician: Alexandr OVALLE MD Finalized Date/Time: 08/18/24 09:25:34 Pt. Name: DENISEOZZIE D.O.B./Sex: 1950 Female Med Rec #: [id number] Physician: Alexandr OVALLE MD Financial #: [id number] Pt. Type: O Room/Bed: / Admit/Disch: 08/18/24 08:24:19 - Institution: Case Times FTURO Entry 1 Patient Times In Room 08/18/24 09:00:00 Out Room 08/18/24 09:23:00 Procedure Times Start 08/18/24 09:05:00 Stop 08/18/24 09:10:00 Anesthesia Times Last Modified By: Florencio Lockwood Ii 08/18/24 09:25:32 Case Attendance FTURO Entry 1 Entry 2 Entry 3 Case Attendee Alexandr OVALLE MD, CST, Florencio Zavala Ii Role Performed Surgeon - Primary Scrub - Primary Chaplain Resident - Primary Time In 08/18/24 09:00:00 08/18/24 [...] Prep Agents Betadine Solution Skin. Condition Intact, Lutsen, Warm, & Description UNCHANGED Dry Additional None [...] Unfinalizing Freetext Reason for Unfinalizing 08/18/24 09:20 [id number] Modifying Existing DataSCCI Hospital Lima Main OR Preoperative Recordon 40-23-6853Bsdg OR Preoperative RecordMain OR Preoperative Record Holding Area Document Type FTURO Summary Primary Physician: Alexandr OVALLE MD Finalized Date/Time: 08/18/24 08:55:13 Pt. Name: OZZIE WALKER/Sex: 1950 Female Med Rec #: [id number] Physician: Alexandr OVALLE MD Financial #: [id number] Pt. Type: O Room/Bed: / Admit/Disch: 08/18/24 [...] Signed By: MERLYN Yanes RN, Ruthann 08/18/24 08:55[facility] Operative Reporton 51-90-1680Ygpxmiijx ReportOperative Report Patient: OZZIE WALKER Age: 74 [...] urine. The Urethra was dilated to: 30 Montenegrin w/ sounds, Due to atrophic vaginitis, the urethra bled from the dilation.. Devices Implanted: None. Removal: Cystoscope is removed, The patient tolerated it well. Postoperative Information Discharge: Patient is discharged home with antibiotic coverage, Follow up arranged. We will put her through urodynamics. 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..[facility]I Hospital LimaComment on above:Result Comment: Electronically Signed By: VASQUEZ VIDES, Alexandr Spicer\Date and Time Signed: 08/18/24 09:26 EDTNM KARSTEN PERF SPECT REST STRon 03-46-4585RgfHarned, [place] [address] Nuclear Medicine Report Signed Patient: OZZIE GIFFORD MR#: [id number] : 1950 Acct:[id number] Age/Sex: 74 / F ADM Date: 08/10/24 Loc: NM Attending Dr: RUBEN SALVADOR Ordering Physician: RUBEN SALVADOR Date of Service: 08/10/24 Procedure(s): NM karsten perf SPECT rest str Accession Number(s): [id number] cc: Cindy Collado 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; RUBEN SALVADOR Patient Name: OZZIE GIFFORD MR#: [id number] : 1950 Exam Date: 08/10/2024 Ordering Doctor: [...] the study was pending per attending physician [facility] . For more details please see separate [...] MD on 08/11/2024 at 13:48 Approved by: Sacnhez Delgado MD on 08/11/2024 at 13:51 Dictated By: Sanchez Delgado M.D. Signed By: 08/11/24 1352 DD/ 1351 TD/TT: Backend Java Developer:TBHRadiology, Radiologist, - 08/11/2024 [place] [address] Nuclear Medicine Report Signed Patient: OZZIE GIFFORD MR#: [id number] : 1950 Acct:[id number] Age/Sex: 74 / F ADM Date: 08/10/24 Loc: NM Attending Dr: RUBEN SALVADOR Ordering Physician: RUBEN SALVADOR Date of Service: 08/10/24 Procedure(s): NM karsten perf SPECT rest str Accession Number(s): [id number] cc: Cindy Collado 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; RUBEN SALVADOR Patient Name: OZZIE GIFFORD MR#: [id number] : 1950 Exam Date: 08/10/2024 Ordering Doctor: [...] the study was pending per attending physician [facility] . For more details please see separate [...] Signed By: 08/11/24 1352 DD/ 1351 TD/TT: Backend Java Developer: OLGA HealthcareRadiology Study observation (narrative)[facility]right [facility] HospitalNM KARSTEN PERF SPECT REST STROrdered By: Radiologist Radiology on 08-85-9992WMJJ Healthcare Work Phone: Office Visiton 80-54-0491Bbwkta-up [id number] Ozzie Gifford 1950 F Date Provider Department Center 07/22/2024 MelisaRUBEN SALVADOR [facility] Family History Problem Relation Age of Onset Hypertension Mother Hypertension Father Heart attack Brother Family Status - Relation Status Age at Mother Father Brother Level of Service:06437 [place] OFFICE/OUTPATIENT ESTABLISHED MOD [facility]Amb[facility] Summaryon 07-16-2024 Ambulatory Visit SummaryAmbulatory [...] mg ER Tab) potassium chloride (Potassium Chloride (Nxx-Ushz-Frt M10) 10 mEq oral tablet, extended release) [...] BERNICE CLEMENTE PA-C Where: [facility] [place] [address]- Medications What How Much When Why Instructions New mirabegron (Myrbetriq 50 mg oral tablet, extended release) 1 Tablets By Mouth Every day Duration: 30 Days Refills: 11 Pickup at [facility] New vibegron (vibegron 75 mg oral tablet) 1 Tablets By Mouth Every day Refills: 11 Pickup at [facility] Unchanged amlodipine (amLODIPine 2.5 mg Tab) [...] or concerns Unchanged potassium chloride (Potassium Chloride (Bmr-Tkal-Uwm M10) 10 mEq oral tablet, extended release) Contact prescribing physician if questions or concerns Unchanged quetiapine (quetiapine 50 mg oral tablet) Contact prescribing physician if questions or concerns Unchanged rosuvastatin (rosuvastatin 20 mg Tab) Contact prescribing physician if questions or concerns Unchanged topiramate (topiramate 50 mg Tab) Contact prescribing physician if questions or concerns Pharmacy Information [facility]: [address], [place] [id number] [phone] What How Much When Why Comments Stop [...] for choosing us for your care. [facility] CenterUrology Office/Clinic Noteon 84-48-1704Cerzvxs Office/Clinic NoteUrology Office/Clinic Note Chief Complaint recheck [...] been obtained. Will order Local anesthesia. Ordered: 78717 Measure Post Void residual urine and/or bladder capacity by US- non-imaging Body Mass Index (BMI) documented 3008F Current tobacco non-user 1036F Depression Screening Negative 3352F E&M of Est. Patient Moderate 30-39 Min 75538 Influenza immunization status assessed 1030F Medication list [...] Urnls Dip Stick Auto w/o Microscopy POC 29026 2. 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 Very bothersome. No improvement w Trospium. Will add Beta-3, either Myrbetriq or Gemtesa, whichever is covered/more affordable. Risks/benefits/side effects discussed. PVR 50ml Ordered: 31836 Measure Post Void residual urine and/or bladder capacity by US- non-imaging Body Mass Index (BMI) documented 3008F Current tobacco non-user 1036F Depression Screening Negative 3352F E&M of Est. Patient Moderate 30-39 Min 42911 Influenza immunization status assessed 1030F Medication list [...] Urnls Dip Stick Auto w/o Microscopy POC 78497 Orders: ciprofloxacin, 500 mg = 1 tab(s), Oral, Daily, Take 1 tablet the day before the procedure and 1 tablet after the procedure, # 2 tab(s), Refills(s) 0, Pharmacy: [facility], 160, cm, 07/16/24 10:45:00 EDT, Height/Length Dosing, 61, kg, 07/16/24 10:45:0... mirabegron, 50 mg = 1 tab(s), Oral, Daily, X 30 day(s), # 30 tab(s), Refills(s) 11, Pharmacy: [facility], 160, cm, 04/14/24 12:55:00 EST, Height/Length Dosing, 61, kg, 04/14/24 12:55:00 EST, Weight Dosing vibegron, 75 mg = 1 tab(s), Oral, Daily, # 30 tab(s), Refills(s) 11, Pharmacy: [facility], 160, cm, 04/14/24 12:55:00 EST, Height/Length Dosing, (more content not included)...[facility]CCI Hospital LimaComment on above:Result Comment: Electronically Signed By: BERNICE CLEMENTE PA-C\.br\Date and Time Signed: 07/16/2517:43 EDTC Urineon 40-70-4457Rwuubcba identified Cx Nom (U)Microbiology PROCEDURE: Urine Culture [...] Locations R1: This test was performed at: [facility], [address] [place] [address], [address]- , , YnpacfYmimlcSCCI Hospital LimaComment on above:Performed By: #### [id number] #### [facility] [address] [place] [address]ZU CERVICAL SPINE WO/W CONon 39-99-8700[address] [address] Magnetic Resonance Report Signed Patient: OZZIE GIFFORD MR#: [id number] : 1950 Acct:[id number] Age/Sex: 74 / F ADM Date: 06/24/24 Loc: LAB Attending Dr: Jameson Mcleod NP Ordering Physician: Jameson Mcleod NP Date of Service: 06/24/24 Procedure(s): MR cervical spine wo/w con Accession Number(s): [id number] cc: Cindy Collado 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; Jameson Mcleod NP [address] [address] Patient Name: OZZIE GIFFORD MRN: [facility]:[id number] date: 1950 Sex: F Assigned Patient Location: LAB Current Patient Location: LAB Accession/Order Number: [id number] Exam Date: 06/24/2024 11:38 Report Date: 06/24/2024 [...] Sung M.D. 06/24/2024 11:50 AM Dictation Location: [place] [address] Electronically authenticated by: [id number] Y Date: 06/24/2024 11:50 Dictated By: Bambi Sung M.D. Signed By: 06/24/24 1152 DD/ 1150 TD/TT: Backend Java Developer:TBHRadiology, Radiologist, - 06/24/2024 [place] [address] Magnetic Resonance Report Signed Patient: OZZIE GIFFORD MR#: [id number] : 1950 Acct:[id number] Age/Sex: 74 / F ADM Date: 06/24/24 Loc: LAB Attending Dr: Jameson Mcleod NP Ordering Physician: Jameson Mcleod NP Date of Service: 06/24/24 Procedure(s): MR cervical spine wo/w con Accession Number(s): [id number] cc: Cindy Collado NP; Jameson Mcleod NP The [address] [address] Patient Name: OZZIE GIFFORD MRN: [facility]:[id number] date: 1950 Sex: F Assigned Patient Location: LAB Current Patient Location: LAB Accession/Order Number: [id number] Exam Date: 06/24/2024 11:38 Report Date: 06/24/2024 [...] Sung M.D. 06/24/2024 11:50 AM Dictation Location: [place] [address] Electronically authenticated by: [id number] Y Date: 06/24/2024 11:50 Dictated By: Bambi Sung M.D. Signed By: 06/24/24 1152 DD/ 1150 TD/TT: Backend Java Developer: OLGA HealthcareRadiology Study observation (narrative)[facility] CERVICAL SPINE WO/W CONOrdered By: Radiologist Radiology on 41-42-1893XIAOWright Memorial Hospital Work Phone: MRI HEAD/BRAIN WO/W CONTRon 39-70-3134XgqHarned, [place] [address] Magnetic Resonance Report Signed Patient: OZZIE GIFFORD MR#: [id number] : 1950 Acct:[id number] Age/Sex: 74 / F ADM Date: 06/24/24 Loc: LAB Attending Dr: Jameson Mcleod NP Ordering Physician: Jameson Mcleod NP Date of Service: 06/24/24 Procedure(s): MR head/brain wo/w con Accession Number(s): [id number] cc: Cindy Collado 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; Jameson Mcleod NP [place] [id number] Patient Name: OZZIE GIFFORD MRN: [facility]:[id number] date: 1950 Sex: F Assigned Patient Location: LAB Current Patient Location: LAB Accession/Order Number: [id number] Exam Date: 06/24/2024 13:40 Report Date: 06/24/2024 [...] Sung M.D. 06/24/2024 1:48 PM Dictation Location: [place] [address] Electronically authenticated by: [id number] Y Date: 06/24/2024 13:48 Dictated By: Bambi Sung M.D. Signed By: 06/24/24 1357 DD/ 1348 TD/TT: Backend Java Developer:TBHRadiology, Radiologist, - 06/24/2024 [place] [address] Magnetic Resonance Report Signed Patient: OZZIE GIFFORD MR#: [id number] : 1950 Acct:[id number] Age/Sex: 74 / F ADM Date: 06/24/24 Loc: LAB Attending Dr: Jameson Mcleod NP Ordering Physician: Jameson Mcleod NP Date of Service: 06/24/24 Procedure(s): MR head/brain wo/w con Accession Number(s): [id number] cc: Cindy Collado NP; Jameson Mcleod NP The [place] [id number] Patient Name: OZZIE GIFFORD MRN: [facility]:[id number] date: 1950 Sex: F Assigned Patient Location: LAB Current Patient Location: LAB Accession/Order Number: [id number] Exam Date: 06/24/2024 13:40 Report Date: 06/24/2024 [...] Sung M.D. 06/24/2024 1:48 PM Dictation Location: [place] [address] Electronically authenticated by: [id number] Y Date: 06/24/2024 13:48 Dictated By: Bambi Sung M.D. Signed By: 06/24/24 1357 DD/ 1348 TD/TT: Backend Java Developer: OLGA HealthcareRadiology Study observation (narrative)[facility] HospitalI HEAD/BRAIN WO/W CONTROrdered By: Radiologist Radiology on 10-64-7255ZQYDWright Memorial Hospital Work Phone: [facility] CREATININEon 41-30-5484Putiyqmuup [Mass/Vol]0.68 mg/dL0.55 - 1.02 mg/dLNOPemiscot Memorial Health SystemsGFR/1.73 sq M.predicted CKD-EPI (S/P/Bld) [Vol rate/Area]>60>=60 mL/min/1.73m 2NOMS [facility] SystemTBH EGFR-NON AF ALBANIAN>60 >=60 mL/min/1.73m 2NOMS [facility] Health SystemCLINISYNCNSSM RehabALL CBC WITH AUTO DIFF on 18-38-6764KEQVHARQB ABSOLUTE AUTO0.1NOMS HealthcareBasophils/100 WBC (Bld)0.9 %0.2 - 2.0 %NOMNorthwest Medical CenterEosinophils/100 WBC (Bld)4.3 %0.9 - 7.0 %Wright Memorial HospitalErythrocyte distribution width (RBC) [Ratio]13.3 %11.0 - 15.0 %Wright Memorial HospitalHematocrit (Bld) [Volume fraction]41.9 %36.0 - 48.0 %[facility] Hemoglobin (Bld) [Mass/Vol]14.2 g/dL12.0 - 16.0 g/dLWright Memorial HospitalIMMATURE GRANULOCYTES ABS AUTO0.02NOPemiscot Memorial Health SystemsImmature granulocytes/100 WBC (Bld)0.3 % 0.0 - 0.5 %[facility] Memorial HospitalInterpretation and review of laboratory results AbnormalNOPemiscot Memorial Health SystemsLYMPHOCYTES ABSOLUTE AUTO1.9NOMS [facility] Lymphocytes/100 WBC (Bld)25.5 %20.5 - 60.0 %[facility] HospitalH (RBC) [Entitic mass]30.7 pg26.7 - 34.0 pgEastern Missouri State HospitalHC (RBC) [Mass/Vol]33.9 g/dL29.9 - 35.2 g/dLEastern Missouri State HospitalV (RBC) [Entitic vol]90.5 fL81.0 - 99.0 fLWright Memorial HospitalMONOCYTES ABSOLUTE AUTO0.6NOMS HealthcareMonocytes/100 WBC (Bld)8.2 % 1.7 - 12.0 %Wright Memorial HospitalNEUTROPHILS ABSOLUTE AUTO4.5NOPemiscot Memorial Health Systems Neutrophils/100 WBC (Bld)60.8 %43.0 - 75.0 %NOMS HealthcarePlatelet mean volume (Bld) [Entitic vol]10.7 fL9.5 - 13.5 fLNOMS HealthcareTBH EO #0.3N[facility]S Healthcare TBH QMM114BeiLCHU HealthcareTBH RBC4.63NOMS HealthcareTBH WBC7.5N[facility]S Healthcare CLINISYNCNOMS HealthcareC Urineon 65-30-1164Ngidkawp identified Cx Nom (U) Microbiology PROCEDURE: Urine [...] Locations R1: This test was performed at: [facility], [address] [place] [address], [facility]- , , GnbnlsKgnuubThe Bellevue HospitalComment on above:Performed By: #### [id number] #### [facility] [address] [place], [place] [id number] - Microbiology and Antimicrobial susceptibility Ordered By: Laura Handley on 23-66-4453Sjrtbcyj identified Cx Nom (U)10,000 cfu/ml Gram Negative Jose Aix System Administrator speciesUniversity Hospitals Ahuja Medical CenterReminders on 99-24-2135FuahsntxsRduzmwtys From: Christina Saul To: EU - Administrative; Sent: 08/09/2023 10:15:11 EDT Show up: 04/13/2024 10:14:00 EST Subject: 1 yr f/u Due Date/Time: 07/14/2024 10:14:00 EDT Reminder/Recall patient seen on 07/15/2023. Patient needs a 1 yr f/u w/ PVR with AO in [place]. Appointment due by07/14/2024 Pt has been scheduled for 08/05/24.[facility] Hospital LimaUrology Office/Clinic Noteon 19-65-4019Xplujhc Office/Clinic NoteUrology Office/Clinic Note Chief Complaint urinary [...] incontinence Patient is accompanied with son 10/26/23 Bun/Wire Frame Dipper/GFR nl 1. Recurrent UTI (N39.0: Urinary tract [...] day(s), # 60 tab(s), Refills(s) 11, Pharmacy: [facility], 160, cm, 04/14/24 12:55:00 EST, Height/Length Dosing, 61, kg, 04/14/24 12:55:00EST, Weight Dosing Body Mass Index (BMI) documented 3008F Current tobacco non-user 1036F Depression Screening Negative 3352F E&M of Est. Patient Moderate 30-39 Min 50937 Influenza immunization status assessed 1030F Medication list [...] E&M of Est. Patient Moderate 30-39 Min 90848 Influenza immunization status assessed 1030F Medication list [...] Stick Auto w/o Microsco (more content not included)...SCCI Hospital LimaComment on above:Result Comment: Electronically Signed By: Monserrat EDEN, Kori\.br\Date and Time Signed: 04/14/24 14:04 [facility] Urineon 69-71-8380Yanxmwjt identified Cx Nom (U)Microbiology PROCEDURE: Urine Culture [...] Locations R1: This test was performed at: [facility], [address] [place] [address], [address] , , DjixizGyyqujThe Bellevue HospitalComment on above:Performed By: #### [id number] #### [facility] [address] [place], [place] [address]Dojofbsezm Visit Summaryon 08-17-0902Oxzcmweyxk Visit Summary Ambulatory Visit Summary OZZIE WALKER [...] mg ER Tab) potassium chloride (Potassium Chloride (Txq-Qgsk-Hij M10) 10 mEq oral tablet, extended release) [...] BERNICE CLEMENTE PA-C Where: [facility] [place] [address]- You Need to Complete the Following Urine [...] then 3x per week thereafter Pickup at [facility] Unchanged amlodipine (amLODIPine 2.5 mg Tab) [...] TAB) 0 Unchanged potassium chloride (Potassium Chloride (Tvf-Gkan-Itr M10) 10 mEq oral tablet, extended release) Unchanged quetiapine (quetiapine 50 mg oral tablet) Unchanged rosuvastatin (rosuvastatin 20 mg Tab) Unchanged topiramate (topiramate 50 mg Tab) Unchanged trospium (trospium 60 mg oral capsule, extended release) 1 Capsules By Mouth Once a day (in the morning) Urinary incontinence without sensory awareness Duration: 90 Days Pharmacy Information [facility]: [address], [place] [id number] [phone] Allergies penicillin Problems Ongoing - Any problem [...] you for choosing us for your care. [facility] Office/Clinic Noteon 16-79-7221Cyrxfzn Office/Clinic NoteUrology Office/Clinic Note Chief Complaint 2 [...] - tx w/ Bactrim x 10d 10/26/23 Bun/Wire Frame Dipper/GFR nl. TODAY: Pt started OTC UTI preventives after last visit as instructed. However had breakthrough UTI in Feb and infected again now. UA today shows trace ketones, traced- lysed blood, positive nits, large blood. Reviewed UA. Patientdoes reports some burning and pain while urinating. KUB 04/01/24 [facility] - independent review - I don't appreciate [...] Contact Information CORRIE EDEN, BERNICE Carias, URL [address] [place] [address] Additional Instructions: -Follow up in [...] mg ER Tab, Oral, Daily Potassium Chloride (Nxr-Ajfk-Fqt M10) 10 mEq oral tablet, extended release quetiapine 50 mg oral tablet rosuvastatin 20 mg Tab topiramate 50 mg Tab trospium 60 mg oral capsule, extended release, 60 mg= 1 cap(s), Oral, qAM, 3 refills Allergies penicillin Social History Tobacco Never (less than 100 in lifetime) Tobacco Use:. Never Smokeless Tobacco Use:. Household toba (more content not included)...[facility] Comment on above:Result Comment: Electronically Signed By: BERNICE CLEMENTE PA-C\.br\Date and Time Signed: 04/01/2509:57 EST\.br\Electronically Co-Signed By: Judy Cool\.br\Date and Time Co-Signed: 04/01/24 10:32 ESTXR Abdomen 1 View on 11-42-5428WA Abdomen 1 ViewExam Date/Time: 04/01/2024 09:48 EST [...] Aneesh Bermudez M.D. Transcribed by: RUMA Technologist: [facility], IncC Urineon 29-92-7068Pjzynstv identified Cx Nom (U)Microbiology PROCEDURE: Urine Culture [...] Locations R1: This test was performed at: [facility], [address] [place] [address] [place], [address]- , [place], BcblicKsujweSCCI Hospital LimaComment on above:Performed By: #### [id number] #### [facility] [address] [place] [address]EA ankle/arm indiceson 73-08-3107VA ankle/arm indicesFirelands Regional Medical Center [facility] [address] [place] [address] Ultrasound Report Signed Patient: Ozzie Giffrod MR#: [id number] : 1950 Acct:[id number] Age/Sex: 73 / F ADM Date: 02/20/24 Loc: [facility] Room: Type: [facility] Attending Dr: Denver Juarez MD [...] Denver Juarez MD02/21/2024 3:36 PM Dictation Location: [place] [address] Tech: Bernice Riggs Transcribed By: SHYANN 02/21/24 153 Dictated By: Denver Juarez MD 02/21/241534 Signed By: 02/21/24 1536[facility] Physician GroupUS carotid doppler BIon 14-00-7523WL carotid doppler [facility] [address] [place], [place] [id number] Ultrasound Report Signed Patient: Ozzie Gifford MR#: [id number] : 1950 Acct:[id number] Age/Sex: 73 / F ADM Date: 02/20/24 Loc: [facility] Room: Type: [facility] Attending Dr: Denver Juarez MD [...] Denver Juarez MD02/21/2024 3:36 PM Dictation [facility] Tech: Ama Mcfarlane Transcribed By: [facility] 02/21/241535 Dictated By: Denver Juarez MD 02/21/241535 Signed By: 02/21/24 153[facility] Physician GroupURINALYSISOrdered By: SYSTEM SYSTEM on 96-89-4443Xdvclzno Auto Ql (U)2+ /HPFInvalid Interpretation Code Trace/HPFOKLAHOMA HEART HOSPITAL [facility] [place] UA Auto SSBilirubin Ql (U)NegativeNormalNegativemg/dLOKLAHOMA HEART HOSPITAL – [place] UA Auto SSCalcium oxalate crystals Computer assisted Ql (U)Present graded/HPFInvalid Interpretation CodeOKLAHOMA HEART HOSPITAL – [place] UA Auto SSClarity (U)Turbid *ABN* (02/20/24 11:30 AM)Invalid Interpretation CodeClearFASCENSION ST. [facility] [place] UA Auto SSColor (U)Yellow 1 (02/20/24 11:30 AM)NormalYellowOKLAHOMA HEART HOSPITAL – [place] UA Auto SSComment on above:Interpretive Data: Microscopic readings are only performed on those samples that meet specific criteria set forth by [facility].Epithelial cells.squamous Auto (Urine sed) [#/Area]3-4 graded/HPFInvalid Interpretation CodeFT UA Auto SSGlucose Ql (U)NegativeNormalNegativemg/dLOKLAHOMA HEART HOSPITAL – [place] UA Auto SS Hemoglobin Auto test strip (U) [Mass/Vol]NegativeNormalNegativemg/dLFT UA Auto SSKetones Auto test strip Ql (U)NegativeNormalNegativemg/dLFT UA Auto SS Leukocyte esterase Auto test strip Ql (U)250 Flora/uL Flora/uLInvalid Interpretation CodeNegativeLeu/uLOKLAHOMA HEART HOSPITAL [facility] [place] UA Auto SSMucus Auto Ql (U)Trace graded/LPFNormal Negativegraded/LPFFTMC UA Auto SSNitrite Auto test strip Ql (U)2+ mg/dLInvalid Interpretation CodeNegativemg/dLOKLAHOMA HEART HOSPITAL [facility] [place] UA Auto SSpH (U)5.5 *NA* (02/20/24 11:30 AM)Invalid Interpretation Code5.0 - 9.0[facility] [place] UA Auto SSProtein Ql (U)NegativeNormalNegativemg/dLOKLAHOMA HEART HOSPITAL [facility] [place] UA Auto SSRBC Ql (U)0-3 graded/HPFNormal 0-3graded/HPFOKLAHOMA HEART HOSPITAL [facility] [place] UA Auto SSSpecific gravity (U) [Rel density]1.025 *NA* (02/20/24 11:30 AM)Invalid Interpretation Code1.005 - 1.030[facility] [place] UA Auto SS Urobilinogen (U) [Mass/Vol]NegativeNormalNegativemg/dLOKLAHOMA HEART HOSPITAL [facility] [place] UA Auto SSWBC Auto (Urine sed) [#/Area]31-75 graded/HPFInvalid Interpretation Code0-5graded/HPFOKLAHOMA HEART HOSPITAL [facility] [place] UA Auto SSURINALYSISOrdered By: Niurka Canas on 39-16-9742XI Spec Desc Clean Catch (02/20/24 11:30 AM)NormalOKLAHOMA HEART HOSPITAL [facility] [place] UA Auto SSUrinalysis with Microon 51-60-9844Mzrtrnxf Auto Ql (U)2+ /HPFAbnormalTraceMercy Health St. Charles HospitalComment on above: Performed By: #### [id number] #### [facility] [address], [place] [address]Krvcmjwoq Ql (U)NegativeNormalNegativeMercy Health St. Charles HospitalComment on above:Performed By: #### [id number] #### [facility] [address] [place] [address], [place] [address]Cuzmgae oxalate crystals Computer assisted Ql (U)Present AbnormalMercy Health St. Charles HospitalComment on above:Performed By: #### [id number] #### [facility] [address] [place], [place] [address]Wdnkxgx (U)TurbidAbnormalClearFProMedica Fostoria Community Hospital Comment on above:Performed By: #### [id number] #### [facility] [address] [place], [place] [address]Xjgrs (U)YellowNormalYellowMercy Health St. Charles HospitalComment on above:Result Comment: Microscopic readings are only performed on those samples that meet specific criteria set forth by [facility].Performed By: #### [id number] #### [facility] [address] [place] [address], [place] [address]Qalymaqfgy cells.squamous Auto (Urine sed) [#/Area]3-4Invalid Interpretation CodeMercy Health St. Charles HospitalComment on above:Performed By: #### [id number] #### [facility] [address] [place] [address], [place] [address]Jrraodr Ql (U)NegativeNormalNegWood County Hospital Comment on above:Performed By: #### [id number] #### [facility] [address] [place] [address], [place] [address]Nshgdfsyyb Auto test strip (U) [Mass/Vol]NegativeNormalNegative [facility] Charles HospitalComment on above:Performed By: #### [id number] #### [facility] [address] [place] [address], [place] [address]Hgrpwmd Auto test strip Ql (U)NegativeNormalNegWood County HospitalComment on above:Performed By: #### [id number] #### [facility] [address] [place], [place] [address]Tuculzztn esterase Auto test strip Ql (U)250 Flora/uLAbnormal NegativeMercy Health St. Charles HospitalComment on above:Performed By: #### [id number] #### [facility] [address] [place], [place] [address]Xekve Auto Ql (U)TraceNormalNegWood County Hospital Comment on above:Performed By: #### [id number] #### [facility] [address] [place], [place] [address]Cjdefiv Auto test strip Ql (U)2+ mg/dLAbnormalNegWood County HospitalComment on above:Performed By: #### [id number] #### [facility] [address] [place] [address]aU (U)5.5 [pH]Invalid Interpretation Code5.0-9.0Mer[facility] Health St. Charles HospitalComment on above:Performed By: #### [id number] #### [facility] [address] [place] [address]Kulzfoc Ql (U)NegativeNormalNegWood County Hospital Comment on above:Performed By: #### [id number] #### [facility] [address] [place] [address]UPM Ql (U)2-5Nvwkag8-2FctdvlProMedica Fostoria Community HospitalComment on above:Performed By: #### [id number] #### [facility] [address] [place] [address]Pthokpfz gravity (U) [Rel density]1.025Invalid Interpretation Code1.005-1.030[facility] St. Charles HospitalComment on above:Performed By: #### [id number] #### [facility] [address] [place] [address]Bohsbtjcvsab (U) [Mass/Vol]NegativeNormalNegWood County HospitalComment on above:Performed By: #### [id number] #### [facility] [address] [place] [address]NPO Auto (Urine sed) [#/Area]09-07Nrmfxttp3-8YzcfwxProMedica Fostoria Community HospitalComment on above:Performed By: #### [id number] #### [facility] [address] [place] [address]Aorc of Urine collection methodClean CatchNormLancaster Municipal HospitalComment on above:Performed By: #### [id number] #### [facility] [address] [place] [address]Oyrtcjbokr Visit Summaryon 88-91-1243Kzjmpzvbda Visit Summary Ambulatory Visit Summary OZZIE WALKER [...] mg ER Tab) potassium chloride (Potassium Chloride (Qqg-Bltf-Isu M10) 10 mEq oral tablet, extended release) quetiapine (quetiapine 50 mg oral tablet) rosuvastatin (rosuvastatin 20 mg Tab) topiramate (topiramate 50 mg Tab) trospium (trospium 60 mg oral capsule, extended release) Procedures Performed Breast surgery, Gastric bypass, Hysterectomy, Knee replacement. What to do next Scheduled Follow-Up Appointments Saturday 8:40 AM EST With: BERNICE CLEMENTE PA-C Where: [facility] [address] [place] [address]- Medications What How Much When Why Instructions [...] TAB) 0 Unchanged potassium chloride (Potassium Chloride (Hbl-Fyvb-Wgp M10) 10 mEq oral tablet, extended release) [...] you for choosing us for your care. [facility]imaNo Panel Informationon 93-72-7176WXKFXVMVUYASUE EPIDERMIDIS, HAEMOLYTICUS, LUGDUNENSIS, SAPROPHYTICUS (DTOTK0IJCT HealthcareSTAPHYLOCOCCUS EPIDERMIDIS, HAEMOLYTICUS, LUGDUNENSIS, SAPROPHYTICUS (URINANot detectedNOMS HealthcareURINARY TRACT INFECTION (HTRX)on 96-96-9743LREDXYOFHHLZM NSVLKLBS7RFWZ HealthcareACINETOBACTER BAUMANIINot detectedNOMS HealthcareCANDIDA ALBICANS, PARAPSILOSIS, GMPNKJEHQH7QOKR HealthcareCANDIDA ALBICANS, PARAPSILOSIS, TROPICALISNot detectedNOMS Healthcare EVANGELINA BGLORQHO8NRZX HealthcareCANDIDA GLABRATANot detectedNOMS Healthcare EVANGELINA UHGKOJ5ITFZ HealthcareCANDIDA KRUSEINot detectedNOMS Healthcare CITROBACTER OKEUMZMB2UNXL HealthcareCITROBACTER FREUNDIINot detectedNOMS HealthcareCTX-M1 (15), M2 (2), M9 (9), M8-25 MWJZUL18.764AbnormalNOMS Healthcare CTX-M1 (15), M2 (2), M9 (9), M8-25 GROUPSDetectedAbnormalNOMS HealthcareDFR (A1, A5), SUL (1,2)18.626AbnormalNOMS HealthcareDFR (A1, A5), SUL (1,2)Detected AbnormalNOMS HealthcareENTEROBACTER AEROGENES, TTMYEZM4MHSX Healthcare ENTEROBACTER AEROGENES, CLOACAENot detectedNOMS HealthcareENTEROCOCCUS FAECALIS, OOAHIDG8SPFT HealthcareENTEROCOCCUS FAECALIS, FAECIUMNot detectedNOMS Healthcare ESCHERICHIA COLI20.787AbnormalNOMS HealthcareESCHERICHIA COLIDetectedAbnormal NOMS HealthcareInterpretation and review of laboratory resultsAbnormalNOMS HealthcareKLEBSIELLA PNEUMONIAE, LZIOCXF4IXDG HealthcareKLEBSIELLA PNEUMONIAE, OXYTOCANot detectedNOMS HealthcareMORGANELLA VRVYJCVM9KBMQ HealthcareMORGANELLA MORGANIINot detectedNOMS HealthcarePROTEUS MIRABILIS, LLKDELTQ1CFZY Healthcare PROTEUS MIRABILIS, VULGARISNot detectedNOMS HealthcarePSEUDOMONAS AERUGINOSA0 NOMS HealthcarePSEUDOMONAS AERUGINOSANot detectedNOMS HealthcareSERRATIA MCKGCIEHVW9VAHB HealthcareSERRATIA MARCESCENSNot detectedNOMS HealthcareSHV, KPC HDFIHV70.606AbnormalNOMS HealthcareSHV, [facility] GROUPSDetectedAbnormalNOMS HealthcareSTAPHYLOCOCCUS FGZWPL2SBVU HealthcareSTAPHYLOCOCCUS AUREUSNot detected NOMS HealthcareSTREPTOCOCCUS AGALACTIAE (GROUP B STREP)29.666AbnormalNOMS HealthcareSTREPTOCOCCUS AGALACTIAE (GROUP B STREP)DetectedAbnormalNOMS HealthcareSTREPTOCOCCUS PYOGENES (GROUP A STREP)0NOMS HealthcareSTREPTOCOCCUS PYOGENES (GROUP A STREP)Not detectedNOMS HealthcareNOMS HealthcareUrinalysis macro (dipstick) panel (U)on 52-38-3006Cogwkkvxz, UA2+Negative - 4(70) +++ mg/dL NOMS HealthcareBlood, [...] HealthcareNOMS HealthcareTBH UA (CLEAN/CATCH) MICROSCOPIC IF INDICATEon 92-03-9858BOVRAAVQW URINENegativeNEGATIVENOMS HealthcareBLOOD URINENegativeNEGATIVENOMS Healthcare Clarity (U)CLEARCLEARNOMS HealthcareColor (U)YELLOWYELLOWNOWY HealthcareGLUCOSE URINE UANegativeNEGATIVE mg/dLNOWY HealthcareInterpretation and review of laboratory resultsAbnormalNOMS HealthcareKetones Ql (U)NegativeNEGATIVE mg/dL NOMS HealthcareLeukocyte esterase Test strip Ql (U)SMALLAbnormalNEGATIVENOMS HealthcareNITRITE URINEPositiveAbnormalNEGATIVENOWY HealthcarepH (U)6.5 [pH]5.0 - 9.0NOWY HealthcarePROTEIN URINENegativeNEG/TRACE mg/dLNOWY HealthcareSPECIFIC GRAVITY URINE1.0201.005 - 1.025NOWY HealthcareURINE MICROSCOPIC INDICATEDYESNOWY HealthcareUROBILINOGEN URINE1.0 EU/dL0.2 - 1.0 EU/dLNOWY HealthcareCLINISYNC NOMS HealthcareALL CBC WITH AUTO DIFFon 27-32-6776ECSMWKIXP ABSOLUTE AUTO0.1NOMS HealthcareBasophils/100 WBC (Bld)1.0 %0.2 - 2.0 %NOMS HealthcareEosinophils/100 WBC (Bld)9.8 %High0.9 - 7.0 %NOM HealthcareErythrocyte distribution width (RBC) [Ratio]12.7 %11.0 - 15.0 %NOMS HealthcareHematocrit (Bld) [Volume fraction]44.3 %36.0 - 48.0 %NOM HealthcareHemoglobin (Bld) [Mass/Vol]14.4 g/dL 12.0 - 16.0 g/dLNOWY HealthcareIMMATURE GRANULOCYTES ABS AUTO0.01NOMS Healthcare Immature granulocytes/100 WBC (Bld)0.2 %0.0 - 0.5 %NOM HealthcareInterpretation and review of laboratory resultsAbnormalNOWY HealthcareLYMPHOCYTES ABSOLUTE AUTO1.7NOPemiscot Memorial Health SystemsLymphocytes/100 WBC (Bld)34.6 %20.5 - 60.0 %NOMNorthwest Medical CenterMCH (RBC) [Entitic mass]29.1 pg26.7 - 34.0 pgNOPemiscot Memorial Health SystemsMCHC (RBC) [Mass/Vol]32.5 g/dL29.9 - 35.2 g/dLNOPemiscot Memorial Health SystemsMCV (RBC) [Entitic vol]89.7 fL 81.0 - 99.0 fLNOMS HealthcareMONOCYTES ABSOLUTE AUTO0.4NOMS Healthcare Monocytes/100 WBC (Bld)7.6 %1.7 - 12.0 %NOMS HealthcareNEUTROPHILS ABSOLUTE AUTO 2.3NOMS HealthcareNeutrophils/100 WBC (Bld)46.8 %43.0 - 75.0 %NOMS Healthcare Platelet mean volume (Bld) [Entitic vol]9.9 fL9.5 - 13.5 fLNOMS HealthcareTBH EO #0.5NOMS HealthcareTBH UMJ367XzyRPNR HealthcareTBH RBC4.94NOMS HealthcareTBH WBC 4.9NOMS HealthcareCLINISYNCNOMS HealthcareOffice Visiton 91-48-2017Ftzrbk-up [id number] Ozzie Gifford 1950 F Date Provider Department Center 09/11/2023 RUBEN MARCANO [facility] Family History Problem Relation Age of Onset Hypertension Mother Hypertension Father Heart attack Brother Family Status - Relation Status Age at Mother Father Brother Level of Service:56259 [place] OFFICE/OUTPATIENT ESTABLISHED MOD MDM 30 [facility]RF [facility] Hypopharynx and Esophagus Views for swallowing function W speech and W barium contrast [place] 31-24[place] [address] Fluoroscopy Report Signed Patient: OZZIE GIFFORD MR#: [id number] : 1950 Acct:[id number] Age/Sex: 73 / F ADM Date: 08/26/23 Loc: [place] Attending Dr: Shaikh Barb Krueger Ordering Physician: Shaikh Pati Day Date of Service: 08/26/23 Procedure(s): [place] modified barium swallow Accession Number(s): [id number] cc: Shaikh Pati Day [place] [address] Patient Name: OZZIE GIFFORD MRN: [id number] date: 1950 Sex: F Assigned Patient Location: [place] Current Patient Location: [place] Accession/Order Number: [id number] Exam Date: 08/26/2023 10:00 Report Date: 08/26/2023 [...] Signed By: 08/26/23 1055 DD/ 1053 TD/TT: Backend Java Developer:TBHRadiology, Radiologist, MD - 08/26/2023 [place] [address] Fluoroscopy Report Signed Patient: OZZIE GIFFORD MR#: [id number] : 1950 Acct:[id number] Age/Sex: 73 / F ADM Date: 08/26/23 Loc: [place] Attending Dr: Shaikh Barb Krueger Ordering Physician: Shaikh Pati Day Date of Service: 08/26/23 Procedure(s): FL modified barium swallow Accession Number(s): [id number] cc: Shaikh Pati Day [address] [place] [id number] Patient Name: OZZIE GIFFORD MRN: [id number] date: 1950 Sex: F Assigned Patient Location: [place] Current Patient Location: [place] Accession/Order Number: [id number] Exam Date: 08/26/2023 10:00 Report Date: 08/26/2023 [...] Signed By: 08/26/23 1055 DD/ 1053 TD/TT: Backend Java Developer: [facility] HospitalRadiology Study observation (narrative)[facility] HospitalRF videography Hypopharynx and Esophagus Views for swallowing function W speech and W barium contrast POOrdered By: Radiologist Radiology on 23-50-9075JNSQ [employer] Work Phone: ambulatory Visit Summaryon 80-43-6396Cafrzdgaci Visit SummaryAmbulatory Visit Summary OZZIE WALKER Odette [...] mg ER Tab) potassium chloride (Potassium Chloride (Ihr-Hrss-Cbl M10) 10 mEq oral tablet, extended release) [...] needed Where: [address] [place] [address] Business (1) Medications What How [...] or concerns Unchanged potassium chloride (Potassium Chloride (Qiy-Ifyz-Wsr M10) 10 mEq oral tablet, extended release) [...] take the entire prescrip (more content not included)...[facility] Office/Clinic Noteon 72-50-4699Rlgxoqq Office/Clinic NoteUrology Office/Clinic Note Chief Complaint OV [...] as planned for incontinence w AO. Ordered: 72616 Measure Post Void residual urine and/or bladder capacity by US- non-imaging E&M of Est. Patient Low 20-29 Min 31532 Urnls Dip Stick Auto w/o Microscopy POC 29108 Follow-up With When Contact Information BERNICE CLEMENTE PA-C, URL Only if needed [address] [place] [address] Business (1) Additional Instructions: Patient [...] mg ER Tab, Oral, Daily Potassium Chloride (Vac-Fcdc-Rkr M10) 10 mEq oral tablet, extended release [...] Protein Urine Dipstick: Negative (08/21/23 13:18:00) Specific [place] Urine Dipstick: 1.020 (08/21/23 13:18:00) Urine Appearance Urine Dipstick: Clear (08/21/23 13:18:00) Urine Color Urine Dipstick: Yellow (08/21/23 13:18:00) Urobilinogen Urine Dipstick: Normal 0.2-1 EU/dl (08/21/23 13:18:00) pH Urine Dipstick: 5 (08/21/23 13:18:00)NormalMercy Health St. Charles HospitalComment on above:Result Comment: Electronically Signed By: BERNICE CLEMENTE PA-C\Date and Time Signed: 08/20/2412:54 EDTC Urineon 87-69-8545Upoaufkw identified Cx Nom (U)Microbiology PROCEDURE: Urine Culture [R1] SOURCE: U CleanCatcb BODY SITE: COLLECTED DATE/TIME: 07/15/2023 13:56 EDT RECEIVED DATE/TIME: 07/15/2023 18:58 EDT START DATE/TIME: 07/15/2023 18:58 EDT FREE TEXT SOURCE: Orvicky V BLOCK SAW OPERATOR, FACILITIES ASSISTANT-C, Orvicky V BLOCK SAW OPERATOR, FACILITIES ASSISTANT-C, Carmen X Carmen X FINAL REPORTS Final [...] Locations R1: This test was performed at: [facility], [address] [place] [address], [address] [place] [address], AaxwibHdzwkdSCCI Hospital LimaComment on above:Performed By: #### [id number] #### [facility] [address] [place], [place] [address]Ambulatory Visit Summaryon 58-27-9518Uxjgcydlga Visit Summary OZZIE WALKER :1950 Visit Date:07/15/2023 Ambulatory Visit Instructions Your Diagnosis Dysuria Incontinence without sensory awareness White matter disease UTI (urinary tract infection) Your Care Team Attending Physician - MITRA Quintero APRN, Carmen Rm Primary Care Physician - SHAIKH DAY MD This Is Your Medications List [facility] Pres[facility] (BACLOFEN 20MG TAB) amlodipine (amLODIPine 2.5 mg Tab) aspirin (aspirin 81 mg Chew Tab) clonazepam (ClonazePAM 0.5 mg Tab) ferrous sulfate (FeroSul 325 mg oral tablet) furosemide (furosemide 40 mg Tab) metoprolol (metoprolol 25 mg ER Tab) potassium chloride (Potassium Chloride (Bqp-Kdte-Kej M10) 10 mEq oral tablet, extended release) [...] TAB) 0 Unchanged potassium chloride (Potassium Chloride (Slz-Fwaa-Kdv M10) 10 mEq oral tablet, extended release) [...] you for choosing us for your care. [facility] LimaPatient Educationon 07-15-2023 Patient EducationObstetrics and Gynecology Urinary [...] this condition includes: ? Antibiotic medicine. ? Xtoc-ker-eilqdsy medicines to treat discomfort. ? Drinking enough [...] these instructions at home: Medicines ? Take gvhe-lgo-uuugrvq and prescription medicines only as told by [...] Document Revie (more content not included)...Normal [facility] CenterUrology Office/Clinic Noteon 84-40-0677Anexnss Office/Clinic NoteChief Complaint Pt is here for [...] with voice recognition artificial intelligence software, specifically [employer], [employer] and or [employer]. 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 She is tolerating it well without side effects. Refill sent to pharmacy. -Continue timed voids, voiding maneuvers -Follow-up 1 year for med recheck, sooner if needed Urinary incontinence without sensory awareness Ordered: trospium, 60 mg = 1 cap(s), Oral, qAM, X 90 day(s), # 90 cap(s), Refills(s) 3, Pharmacy: [facility] #[id number], 160, cm, 07/15/23 12:40:00 EDT, Height/Length Dosing, 60, kg, 07/15/23 12:40:00 EDT, Weight Dosing trospium, 60 mg = 1 cap(s), Oral, qAM, X 90 day(s), # 90 cap(s), Refills(s) 0, Pharmacy: [facility] #[id number], 160, cm, 03/07/23 10:58:00 EST, Height/Length Dosing, 60, kg, 03/07/23 10:58:00 EST, Weight Dosing 72715 Measure Post Void residual urine and/or bladder capacity by US- non-imaging 3. White matter disease (R90.82: White matter disease, unspecified) [facility] inpatient stay 03/01/23 - for head stuff per patient. CT brain w/o con 03/01/23 - stable atrophy and white matter disease [1] Patient is here with her today, states that she is following with neurology regarding her memory and worsening ambulation. Ordered: 17104 Measure Post Void residual urine and/or bladder capacity by US- non-imaging Orders: Urnls Dip Stick Auto w/o Microscopy POC 11832 Follow-up With When Contact Information MITRA Quintero APRN, Carmen Rm, FAM, URL Additional Instructions: 1 yr w/ PVR Patient Education Urinary Tract Infection, Adult Urinary Incontinence Problem List/Past Medical History Ongoing Dysuria Headache Hypertension Incontinence without sensory awareness Strok (more content not included)...[facility] Hospital LimaComment on above:Result Comment: Electronically Signed By: MITRA Quintero APRN, [place] X\.br\Date and Time Signed: 07/15/23 13:40 EDTLaboratory - Chemistry and Chemistry - challengeon 55-32-1491Nkfwpksxn Ql (U)NegativeMagruder Memorial HospitalGlucose (U) [Mass/Vol]NegativeMagruder Memorial Hospital Ketones Ql (U)traceMagruder Memorial HospitalpH (U)5.5 [pH][facility], Beachwoodpecific gravity (U) [Rel density]1.025Magruder Memorial HospitalUrobilinogen (U) [Mass/Vol]0.2 mg/dLMagruder Memorial HospitalLaboratory - Specimen informationon 16-67-0158Ctpqmhdkja (U)clearMagruder Memorial HospitalColor (U)darkyellowMagruder [facility] - Urinalysison 07-48-0482Slehltabe esterase Test strip Ql (U)small [facility] HospitalNitrite Ql (U)PositiveMagruder Memorial HospitalProtein Ql (U)NegativeMagruder Memorial HospitalNo Panel Informationon 82-58-9298Qgwhk Occult BloodNegativeMagruder Memorial HospitalUrine Cultureon 85-07-8621Ttdamdkh identified Cx Nom (U)ORGANISM: Gram Negative Bacilli (O:GNB) Palmer Count >100,000 PERFORMED BY: [place] [address] PATHOLOGIST HYDRO MECHANIC YOCASTA BYRNE M.D.[facility]als Parma Medical CenterComment on above: Performed By: #### CUU #### [place] [address] USAUrine culture routineon 52-97-5256Qwmghspw identified Cx Nom (U)Klebsiella pneumoniaeAbnormalMagruder Memorial HospitalBasophils Auto (Bld) [#/Vol]Ordered By: Nakul Nazario on 13-45-8568Jnpemnohr (Bld) [#/Vol]0.0 10*3/uL0.0-0.2FKindred Hospital LimaBasophils/100 WBC Auto (Bld)Ordered By: Nakul Nazario on 69-52-2261Mdkdvnimr/100 WBC (Bld)0.8 %. [facility] HospitalBlood activated clotting time by coagulation assayOrdered By: Denver Juarez on 30-14-2734MLW Coag (Bld)298 s90-139 [facility] HospitalComment on above:Reference Range: 90-139 (Non-heparinized)Calcium [Mass/volume] in Serum or PlasmaOrdered By: Nakul Nazario on 81-71-6331Zmxgrew [Mass/Vol]9.3 mg/dL8.6-10.3FKindred Hospital LimaCarbon dioxide, total [Moles/volume] in Serum or PlasmaOrdered By: Nakul Nazario on 18-73-9716CR2 [Moles/Vol]29.4 mmol/L21.0-31.0[facility] HospitalChloride [Moles/volume] in Serum or PlasmaOrdered By: Nakul Nazario on 65-27-1781Xqmfhchp [Moles/Vol]110 mmol/S80-734BxbkaxldaMagruder Memorial HospitalCreatinine [Mass/volume] in Serum or PlasmaOrdered By: Nakul Nazario on 04-47-3949Dzdqfuunjy [Mass/Vol]0.81 mg/dL0.60-1.20[facility] HospitalEosinophils Auto (Bld) [#/Vol]Ordered By: Nakul Nazario on 74-72-2461Icimxaqonwt (Bld) [#/Vol]0.4 10*3/uL0.0-0.45[facility] HospitalEosinophils/100 WBC Auto (Bld)Ordered By: Nakul Nazario on 87-06-3885Wygtymxkqfg/100 WBC (Bld)6.8 %.[facility] HospitalErythrocyte distribution width Auto (RBC) [Ratio]Ordered By: Nakul Nazario on 13-59-0724Iaptaerflbe distribution width (RBC) [Ratio]13.7 %11.9-15.3 [facility] HospitalGlucose [Mass/volume] in Serum or PlasmaOrdered By: Nakul Nazario on 34-86-9829Jzgmcwe [Mass/Vol]77 mg/rK12-385QnjcgvoksMagruder Memorial HospitalComment on above:ADA recommended reference rangeRandom Glucose Reference Range is dependent on time and content of last meal. Glucose of more than 200 mg/dL in a nonstressed, ambulatory subject supports the diagnosisof Diabetes Mellitus.Hematocrit Auto (Bld) [Volume fraction]Ordered By: Nakul Nazario on 40-04-7665Zmqdjvxmwo (Bld) [Volume fraction]44.3 %34.0-46.4 [facility] HospitalHemoglobin [Mass/volume] in BloodOrdered By: Nakul Nazario on 55-02-0112Edxkoqocym (Bld) [Mass/Vol]15.2 g/dL11.8-15.4 [facility] HospitalLeukocytes [#/volume] corrected for nucleated erythrocytes in Blood by Automated counOrdered By: Nakul Nazario on 72-03-1490KUQ corrected for nucl RBC Auto (Bld) [#/Vol]5.5 10*3/uL3.8-11.6 [facility] HospitalLymphocytes Auto (Bld) [#/Vol]Ordered By: Nakul Nazario on 25-82-0589Ipeyriwhyge (Bld) [#/Vol]1.4 10*3/uL1.00-4.8 [facility] HospitalLymphocytes/100 WBC Auto (Bld)Ordered By: Nakul Nazario on 78-87-7429Qjashxlaztg/100 WBC (Bld)25.9 %.[facility] Auto (RBC) [Entitic mass]Ordered By: Nakul Nazario on 17-05-7023UUK (RBC) [Entitic mass]29.6 pg24.7-34.3FRiverside Methodist Hospital Auto (RBC) [Mass/Vol]Ordered By: Nakul Nazario on 62-52-7156EFFP (RBC) [Mass/Vol]34.3 g/dL32.0-35.0[facility] HospitalMCV Auto (RBC) [Entitic vol]Ordered By: Nakul Nazario on 79-73-3597BOQ (RBC) [Entitic vol]86.4 wH65-135EmkmafqhdMagruder Memorial HospitalMonocytes Auto (Bld) [#/Vol]Ordered By: Nakul Nazario on 43-77-3622Esbnguvot (Bld) [#/Vol] 0.4 10*3/uL0.0-0.8[facility] HospitalMonocytes/100 WBC Auto (Bld) Ordered By: Nakul Nazario on 39-90-1980Sanpjlbou/100 WBC (Bld)7.8 %. [facility] HospitalNeutrophils Auto (Bld) [#/Vol]Ordered By: Nakul Nazario on 78-70-6467Foixfopnkyh (Bld) [#/Vol]3.2 10*3/uL1.8-7.7 [facility] HospitalNeutrophils/100 WBC Auto (Bld)Ordered By: Nakul Nazario on 84-40-9590Ywejzokdmsp/100 WBC (Bld)58.7 %.[facility] HospitalNo Panel InformationOrdered By: Nakul Nazario on 80-26-3570Drhqfhvoj GFR (CKD-EPI)> 60.0 mL/MinMagruder Memorial Hospital Pharmacy Creatinine Clearance (Chem51.50[facility] Nucleated erythrocytes [Presence] in Blood by Automated countOrdered By: Nakul Nazario on 87-40-3007Sakxwprbm RBC Auto Ql (Bld)0.2 /100{WBC}0-0.5 [facility] HospitalPlatelet mean volume Auto (Bld) [Entitic vol] Ordered By: Nakul Nazario on 28-73-1266Rlbvvcuh mean volume (Bld) [Entitic vol]7.8 fL6.3-10.7FKindred Hospital LimaPlatelets Auto (Bld) [#/Vol] Ordered By: Nakul Nazario on 99-71-9285Vrmbikbjn (Bld) [#/Vol]185 10*3/uL 150-450[facility] HospitalPotassium [Moles/volume] in Serum or PlasmaOrdered By: Nakul Nazario on 27-48-4093Kpxgzauhb [Moles/Vol]3.2 mmol/L 3.5-5.1FKindred Hospital LimaRBC Auto (Bld) [#/Vol]Ordered By: Nakul Nazairo on 68-35-9835DHN (Bld) [#/Vol]5.12 10*6/uL3.60-5.00[facility], Beachwooderum or plasma anion gap determinationOrdered By: Nakul Nazario on 63-22-2363Vfzlx gap [Moles/Vol]9.8 mmol/L6.0-15.0[facility], Beachwoododium [Moles/volume] in Serum or PlasmaOrdered By: Nakul Nazario on 95-93-5122Zdufvu [Moles/Vol]146 mmol/J692-725WvsjddnehMagruder Memorial HospitalUrea nitrogen [Mass/volume] in Serum or PlasmaOrdered By: Nakul Nazario on 12-74-6623Mmtz nitrogen [Mass/Vol]16 mg/dL7-25[facility] HospitalWBC Auto (Bld) [#/Vol]Ordered By: Nakul Nazario on 41-55-5273CGV (Bld) [#/Vol]5.5 10*3/uL3.8-11.6FKindred Hospital Lima Formson [id number]#1.00TIFFNormal [facility] HospitalPhysician Referralon 09-05-1698Snwbtbyzn Referral [id number]#1.00TIFFNormalMercy Health St[address] Charles HospitalAmbulatory Visit Summaryon 30-53-5388Jitfspcknm Visit Summary OZZIE WALKER :1950 Visit Date:03/07/2023 [...] mg ER Tab) potassium chloride (Potassium Chloride (Bil-Yett-Rpq M10) 10 mEq oral tablet, extended release) [...] TAB) 0 Unchanged potassium chloride (Potassium Chloride (Pag-Lgun-Rde M10) 10 mEq oral tablet, extended release) [...] you for choosing us for your care. [facility] Hospital LimaPatient Educationon 03-07-2023 Patient EducationUrology Urinary Incontinence Urinary [...] nerve stimulation). ? For women, using a claim review medical director to prevent urine leaks. This is [...] from urine. ? 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 Pt states she walked here from [place] in the rain. Genitourinary: Flank Pain: none. [...] 60 mg ER QD. Rx sent to [facility]. -f/u 6-8 weeks for med recheck and PVR. Ordered: trospium, 60 mg = 1 cap(s), Oral, qAM, X 90 day(s), # 90 cap(s), Refills(s) 0, Pharmacy: [facility] #[id number], 160, cm, 03/07/23 10:58:00 EST, Height/Length Dosing, 60, kg, 03/07/23 10:58:00 EST, Weight Dosing 2. UTI (urinary tract infection) (N39.0: Urinary tract infection, site not specified) recently dx by PCP [facility] 02/23/23 - 100 k E. coli, treated w/ macrobid. However, pt did have short inpatient stay during course (UA negative at [facility]) and pt states she has a [...] disease, unspecified (R90.82: White matter disease, unspecified) [facility] inpatient stay 03/01/23 - for head stuff per patient. CT brain w/o con 03/01/23 - stable atrophy and white matter disease Pt not able to answer questions directly in visit today. States she walked to [employer] office from [place]. Poor historian. Orders: 82611 Measure Post Void residual urine and/or bladder capacity by US- non-imaging Urnls Dip Stick Auto w/o Microscopy POC 52867 Follow-up With When Contact Information Orzech V BLOCK SAW OPERATOR, FACILITIES ASSISTANT-C, Carmen X, FAM, URL In 8 weeks [...] mg ER Tab, Oral, Daily Potassium Chloride (Zym-Dqva-Jsj M10) 10 mEq oral tablet, extended release [...] 10:47:00) Blood Urine Di (more content not included)...[facility] Comment on above:Result Comment: Electronically Signed By: MITRA Quintero APRN, Carmen Rm\.br\Date and Time Signed: 03/07/23 14:30 ESTCardiac echo study Procedureon 05-86-6825[place], [place] [address] Cardiology Report Signed Patient: OZZIE GIFFORD MR#: [id number] : 1950 Acct:[id number] Age/Sex: 72 / F ADM Date: 03/01/23 Loc: CARD Attending Dr: DIANA DOZIER Ordering Physician: DIANA DOZIER Date of Service: 03/01/23 Procedure(s): CA echo w/ con Accession Number(s): [id number] cc: DIANA DOZIER Shaikh M.D. Patient Name: OZZIE GIFFORD MR#: [id number] : 1950 Exam Date: 03/01/2023 Ordering Doctor: [...] Dictated By: RUBEN SALVADOR Signed By: 03/01/23 9989 (more content not included)...TBHRadiology, Radiologist, - 03/01/2023 [place] [address] Cardiology Report Signed Patient: OZZIE GIFFORD MR#: [id number] : 1950 Acct:[id number] Age/Sex: 72 / F ADM Date: 03/01/23 Loc: CARD Attending Dr: DIANA DOZIER Ordering Physician: DIANA DOZIER Date of Service: 03/01/23 Procedure(s): CA echo w/ con Accession Number(s): [id number] cc: DIANA DOZIER ; Shaikh Pati Day Patient Name: OZZIE GIFFORD MR#: [id number] : 1950 Exam Date: 03/01/2023 Ordering Doctor: [...] SALVADOR Signed By: 03/01/231828 DD/ 26 TD/TT: Backend Java Developer: [facility] HealthcareRadiology Study observation (narrative)[facility] HealthcareCardiac echo study ProcedureOrdered By: Radiologist Radiology on 21-77-5261[facility] Work Phone: Urinalysis - AUTOMATEDon 82-21-6445Qacwtevqzi (U) [employer] Other Bilirubin Ql (U)[employer] Other Color (U)[employer] Other Glucose Ql (U)[employer] Other Hemoglobin Ql (U)[employer] Other Ketones Ql (U)[employer] Other Leukocyte esterase Test strip Ql (U)NegativeWeatherford Questli Other Nitrite Ql (U)NegativeWeatherford Questli Other pH (U)6.0 [pH][place] [employer] Other Protein Ql (U)NegativeThe [employer] Other Specific gravity (U) [Rel density]1.030[facility] Other Urobilinogen (U) [Mass/Vol]1.0 mg/dLWeatherford Questli Other Urinalysis - AUTOMATEDWeatherford [facility] Other ECHOCARDIO M/2D COMPLETEon 01-26-9283QTEETNZMDI M/2D COMPLETEPatient: OZZIE GIFFORD Exam Date: 02/21/2022 : 1950 Gender:F Ordering : DIANA DOZIER Admission #: [id number] Family : SHAIKH Korina DAY . Order #: [id number] CLICK HERE TO VIEW EXAM ECHOCARDIOGRAM REPORT [...] by: Jacklyn Doty M.D. on 02/22/2022 at 13:00[facility] CenterVC COMP CONSULTATIONon 51-76-2465YC COMP CONSULTATIONPatient: OZZIE GIFFORD Exam Date: 02/20/2022 : 1950 Gender:F Ordering : SHAIKH Korina DAY . Admission #: [id number] Family : Order #: [id number] CLICK HERE TO VIEW EXAM RADIOLOGY REPORT [...] her congestive heart disease up with her glazier structural glass in the next 2 weeks. The patient [...] by: Natacha Santana MD on 02/20/2022 at 11:35[facility] Medical CenterVC VENOUS REFLUX IAN LMTon 84-18-6535YJ VENOUS REFLUX IAN LMTPatient: OZZIE GIFFORD Exam Date: 02/20/2022 : 1950 Gender:F Ordering : SHAIKH Korina DAY . Admission #: [id number] Family : DR NATACHA SANTANA M.D. Order #: [id number] CLICK HERE TO VIEW EXAM RADIOLOGY REPORT [...] chronic thrombus visualized Compressibility: Normal Flow: Normal Coat Maker: Dist/med calf 2.5mm with 0s reflux. [...] by: Natacha Santana MD on 02/20/2022 at 10:30[facility] Medical CenterUS JANETTE DOP LEG LTon 34-09-8317CI JANETTE DOP LEG LTINDICATION: Disorder of soft [...] Electronically authenticated by: INDRA LOZADA Date: 2022-01-31 18:39[facility] Medical CenterBNPon 96-08-7013Dtrducdttxx peptide B (Bld) [Mass/Vol]552.0 pg/mLNormal<=900.0The [facility] HospitalComment on above:Performed By: #### ERUR #### [facility] [address] [place] [address] Dr. Grzegorz Hurley AUTO DIFFon 98-97-1934VBCL #0.1 103/ulNormal0.0-0.1[facility] NorthComment on above:Performed By: #### CBC #### [facility] [address] [place] [address] Dr. Grzegorz WangBasophils/100 WBC (Bld)0.9 %Normal0.2-2.0[facility] Comment on above:Performed By: #### CBC #### [facility] [address] [place] [address] Dr. Grzegorz Tellez #0.3 103/ulNormal0.0-0.7The [facility] HospitalComment on above: Performed By: #### CBC #### [facility] [address] [place] [address] Dr. Grzegorz Reisosinophils/100 WBC (Bld)5.5 %Normal0.9-7.0[facility] Comment on above:Performed By: #### CBC #### [facility] [address] [place] [address] Dr. Grzegorz Reisrythrocyte distribution width (RBC) [Ratio]13.7 %Wospwq61.0-15.0 The [facility] HospitalComment on above:Performed By: #### CBC #### [facility] [address] [place] [address] Dr. Grzegorz WangHematocrit (Bld) [Volume fraction]41.1 %Dcnzbb49.0-48.0The [facility] HospitalComment on above:Performed By: #### CBC #### [facility] [address] [place] [address] Dr. Grzegorz WangHemoglobin (Bld) [Mass/Vol]13.4 g/fSWiuckt94.0-16.0The [facility] HospitalComment on above:Performed By: #### CBC #### [facility] [address] [place] [address] Dr. Grzegorz WangIG #0.01 10e3/ulNormal0.00-0.03The [facility] HospitalComment on above:Performed By: #### CBC #### [facility] [address] [place] [address] Dr. Grzegorz WangIG %0.2 %Normal0.0-0.5The [facility] HospitalComment on above: Performed By: #### CBC #### [facility] [address] [place] [address] Dr. Grzegorz FinleyMPH #1.8 103/ulNormal1.2-3.8The [facility] HospitalComment on above:Performed By: #### CBC #### [facility] [address] [place] [address] Dr. Grzegorz Finleymphocytes/100 WBC (Bld)29.9 %Brtgnx79.5-60.0The [facility] HospitalComment on above:Performed By: #### CBC #### [facility] [address] [place] [address] Dr. Grzegorz Bowers DIFF REQNONormalThe [facility] HospitalComment on above: Performed By: #### CBC #### [facility] [address] [place] [address] Dr. Grzegorz Finley (RBC) [Entitic mass]28.2 dcRhviqc63.7-34.0The [facility] HospitalComment on above:Performed By: #### CBC #### [facility] [address] [place] [address] Dr. Grzegorz Finley (RBC) [Mass/Vol]32.6 g/dLUwoqkq48.9-35.2The [facility] HospitalComment on above:Performed By: #### CBC #### [facility] [address] [place] [address] Dr. Grzegorz Finley (RBC) [Entitic vol]86.5 iABsndwp05.0-99.0The [facility] HospitalComment on above:Performed By: #### CBC #### [facility] [address] [place] [address] Dr. Grzegorz Wild #0.7 103/ulNormal0.3-0.8The [facility] HospitalComment on above:Performed By: #### CBC #### [facility] [address] [place] [address] Dr. Grzegorz Lemusocytes/100 WBC (Bld)11.1 %Normal1.7-12.0[facility] Comment on above:Performed By: #### CBC #### [facility] [address] [place] [address] Dr. Grzegorz Parada #3.1 103/ulNormal1.4-6.5The [facility] HospitalComment on above:Performed By: #### CBC #### [facility] [address] [place] [address] Dr. Grzegorz Omerutrophils/100 WBC (Bld)52.4 %Lkcdhk06.0-75.0The [facility] HospitalComment on above:Performed By: #### CBC #### [facility] [address] [place] [address] Dr. Grzegorz WangPlatelet mean volume (Bld) [Entitic vol]9.6 fLNormal9.5-13.5The [facility] on above:Performed By: #### CBC #### [facility] [address] [place] [address] Dr. Grzegorz WangPLT162 103/ceIqazso279-245Efk [facility] HospitalComselect [facility] on above: Performed By: #### CBC #### [facility] [address] [place] [address] Dr. Grzegorz WangRBC4.75 106/ulNormal4.20-5.40The [facility] HospitalComselect [facility] on above:Performed By: #### CBC #### [facility] [address] [place] [address] Dr. Grzegorz WangWBC5.9 103/ulNormal4.0-11.0The [facility] HospitalComselect specialty hospital[facility] on above: Performed By: #### CBC #### [facility] [address] [place] [address] Dr. Grzegorz WangPROF 14(COMP METB)on 52-13-1034Fcsowty [Mass/Vol]3.4 g/dLNormal 3.4-5.0The [facility] HospitalComselect specialty hospital[facility] on above:Performed By: #### ERUR #### [facility] [address] [place] [address] Dr. Grzegorz WangAlbumin/Globulin [Mass ratio]1.0 {ratio}NormalThe [facility] HospitalComselect specialty hospital-[facility] on above:Performed By: #### ERUR #### [facility] [address] [place] [address] Dr. Grzegorz Oleary [Catalytic activity/Vol]102 U/AExchxe92-529Bii [facility] on above:Performed By: #### ERUR #### [facility] [address] [place] [address] Dr. Grzegorz CovarrubiasT [Catalytic activity/Vol]16 U/BVssfcb42-10Wpq [facility] HospitalComselect specialty hospital[facility] on above:Performed By: #### ERUR #### [facility] [address] [address] [address] Grzegorz Ortegaon gap [Moles/Vol]10.6 mmol/LNormalThe [facility] Comment on above:Performed By: #### ERUR #### [facility] [address] [address] [address] Grzegorz WangAST [Catalytic activity/Vol]18 U/VXqgpwg49-80Hwo [facility] HospitalComment on above:Performed By: #### ERUR #### [facility] [address] [address] [address] Grzegorz WangBilirubin [Mass/Vol]0.4 mg/dLNormal0.2-1.0[facility] Comment on above:Performed By: #### ERUR #### [facility] [address] [place] [address] Dr. Grzegorz WangCalcium [Mass/Vol]9.0 mg/dLNormal8.5-10.1[facility] Comment on above:Performed By: #### ERUR #### [facility] [address] [place] [address] Dr. Grzegorz WangChloride [Moles/Vol]103 mmol/WOarlpq91-332LztSelect Medical Specialty Hospital [facility] Comment on above:Performed By: #### ERUR #### [facility] [address] [place] [address] Dr. Grzegorz WangCO2 [Moles/Vol]31.4 mmol/SBwqmpk83.0-32.0[facility] Comment on above:Performed By: #### ERUR #### [facility] [address] [place] [address] Dr. Grzegorz WangCreatinine [Mass/Vol]0.80 mg/dLNormal0.55-1.02The [facility] HospitalComment on above:Performed By: #### ERUR #### [facility] [address] [address] [address] Lantigua ChangEGFR-AF ALBANIAN>60Normal>=60The [facility] HospitalComment on above:Performed By: #### ERUR #### [facility] [address] [address] [address] Grzegorz ReisGFR-NON AF ALBANIAN>60Normal>=60The [facility] HospitalComment on above:Performed By: #### ERUR #### [facility] [address] [address] [address] Grzegorz WangGlobulin (S) [Mass/Vol]3.4 g/dLNormOhioHealth Hardin Memorial HospitalComment on above:Performed By: #### ERUR #### [facility] [address] [address] [address] Grzegorz WangGlucose [Mass/Vol]78 mg/aXPhrshj09-535NopSelect Medical Specialty Hospital - [facility] Comment on above:Performed By: #### ERUR #### [facility] [address] [place] [address] Dr. Grzegorz WangPotassium [Moles/Vol]3.0 mmol/LCritically low3.5-5.1The [facility] HospitalComment on above:Performed By: #### ERUR #### [facility] [address] [address] [address] Grzegorz WangProtein [Mass/Vol]6.8 g/dLNormal6.4-8.2[facility] Comment on above:Performed By: #### ERUR #### [facility] [address] [address] [address] Grzegorz WangSodium [Moles/Vol]142 mmol/ZXrmggq829-557WseSelect Medical Specialty Hospital - [facility] Comment on above:Performed By: #### ERUR #### [facility] [address] [address] [address] Grzegorz WangUrea nitrogen [Mass/Vol]14.0 mg/dLNormal7.0-18.0The [facility] HospitalComment on above:Performed By: #### ERUR #### [facility] [address] [place] [address] Dr. Grzegorz WangUrea nitrogen/Creatinine [Mass ratio]17.5 mg/mgNormalThOhioHealth Riverside Methodist HospitalComment on above:Performed By: #### ERUR #### [facility] [address] [address] [address] Grzegorz Ruiz JANETTE DOP LEG LTon 49-32-5273KB JANETTE DOP LEG LTEXAM: US JANETTE DOP [...] Electronically authenticated by: MIRI BALTAZAR Date: 2022-01-22 16:38[facility] Medical CenterLIPID PROFILEon 66-28-3266TCKA-HDL RATIO NORMSEE BELOWUniversity Hospitals St. John Medical CenterComment on above:Result Comment: 3.3 - 4.4 LOW RISK 4.4 - 7.1 AVERAGE RISK 7.1 - 11.0 MODERATE RISK >11.0 HIGH RISKPerformed By: #### PALOMA, LIPA #### [facility] [address] [place] [address] Dr. Grzegorz Guyesterol [Mass/Vol]125 mg/dLNormal<=200[facility] Comment on above:Performed By: #### PALOMA, LIPA #### [facility] [address] [address] [address] Grzegorz WangCholesterol in HDL [Mass/Vol]69 mg/dLCritically ymfe55-37Myv [facility] HospitalComment on above:Performed By: #### PALOMA, LIPA #### [facility] [address] [address] [address] Grzegorz WangCholesterol in LDL [Mass/Vol]40.0 mg/dLUniversity Hospitals St. John Medical CenterComment on above:Performed By: #### PALOMA, LIPA #### [facility] [address] [address] [address] Grzegorz Diaz.total/Cholesterol in HDL [Mass ratio]1.8 {ratio} NormalThe [facility] County HospitalComment on above:Performed By: #### PALOMA, LIPA #### [facility] [address] [address] [address] Grzegorz Fernández NORMAL> or = 60 mg/dl - LOW CARDIOVASCULAR RISK <40 mg/dl - HIGH CARDIOVASCULAR RISKUniversity Hospitals St. John Medical CenterComment on above:Performed By: #### PALOMA, LIPA #### [facility] [address] [address] [address] Grzegorz WangLDL CALC NORMALSEE BELOWNoPremier HealthComment on above:Result Comment: <100 mg/dl OPTIMAL 100 - 129 mg/dl NEAR OR ABOVE OPTIMAL 130 - 159 mg/dl BORDERLINE HIGH 160 - 189 mg/dl HIGH >190 mg/dl VERY HIGH Performed By: #### PALOMA, LIPA #### [facility] [address] [place] [address] Dr. Grzegorz WangTriglyceride [Mass/Vol]80 mg/dLNormal<=150[facility] Comment on above:Performed By: #### PALOMA, LIPA #### [facility] [address] [address] [address] Grzegorz AbarcaLDL CALC16.0 mg/dLUniversity Hospitals St. John Medical CenterComment on above: Performed By: #### PALOMA, LIPA #### [facility] [address] [place] [address] Dr. Grzegorz Ruiz PELVISon 44-65-8940SW PELVISEXAMINATION: US PELVIS HISTORY: Cyst of ovary [...] Electronically authenticated by: MITZI CHAU Date: 2022-01-18 10:31NoPremier HealthXR CHEST 2 Von 86-16-6384QZ CHEST 2 VEXAMINATION: XR CHEST 2 V [...] Electronically authenticated by: MITZI CHAU Date: 2022-01-03 10:48NoPremier HealthUS PELVISon 26-88-3829GM PELVISEXAMINATION: US PELVIS HISTORY: Cyst of ovary [...] Electronically authenticated by: MITZI CHAU Date: 2021-12-07 17:20NoPremier HealthPROF CHEM 8 (BAS METB)on 87-89-6180Tolpx gap [Moles/Vol]13.0 mmol/LNormalSelect Medical Specialty [facility] - Cincinnati NorthComment on above:Performed By: #### PALOMA, LIPA #### [facility] [address] [place] [address] Dr. Grzegorz WangCalcium [Mass/Vol]8.9 mg/dLNormal8.5-10.1[facility] Comment on above:Performed By: #### PALOMA, LIPA #### [facility] [address] [address] [address] Grzegorz WangChloride [Moles/Vol]105 mmol/XIvbsmy74-539Jnc [facility] Comment on above:Performed By: #### PALOMA, LIPA #### [facility] [address] [address] [address] Grzegorz WangCO2 [Moles/Vol]29.0 mmol/WGnkwbp48.0-32.0The [facility] Comment on above:Performed By: #### PALOMA, LIPA #### [facility] [address] [address] [address] Grzegorz WangCreatinine [Mass/Vol]0.79 mg/dLNormal0.55-1.02[facility] - [place] NorthComment on above:Performed By: #### PALOMA, LIPA #### [facility] [address] [address] [address] Grzegorz ReisGFR-AF ALBANIAN>60Normal>=60The [facility] HospitalComment on above:Performed By: #### PALOMA, LIPA #### [facility] [address] [address] [address] Grzegorz ReisGFR-NON AF ALBANIAN>60Normal>=60The [facility] HospitalComment on above:Performed By: #### PALOMA, LIPA #### [facility] [address] [address] [address] Grzegorz WangGlucose [Mass/Vol]79 mg/dEUzujdi10-574Yys [facility] Comment on above:Performed By: #### PALOMA, LIPA #### [facility] [address] [address] [address] Grzegorz WangPotassium [Moles/Vol]3.0 mmol/LCritically low3.5-5.1The [facility] HospitalComment on above:Performed By: #### PALOMA, LIPA #### [facility] [address] [address] [address] Grzegorz WangSodium [Moles/Vol]144 mmol/OHmgqpi658-221Sgt [facility] Comment on above:Performed By: #### PALOMA, LIPA #### [facility] [address] [address] [address] Grzegorz Padron nitrogen [Mass/Vol]12.0 mg/dLNormal7.0-18.0The [facility] HospitalComment on above:Performed By: #### PALOMA, LIPA #### [facility] [address] [address] [address] Grzegorz Padron nitrogen/Creatinine [Mass ratio]15.2 mg/mgNormalThe [facility] HospitalComment on above:Performed By: #### PALOMA, LIPA #### [facility] [address] [place] [address] Dr. Grzegorz WangVITAMIN B12on 95-17-2699Yfmunjydi (Vitamin B12) [Mass/Vol]5661.0 pg/mLCritically zqkx123.0-986.0The [facility] HospitalComment on above:Performed By: #### ERUR #### [facility] [address] [place] [address] Dr. Grzegorz WangBNPon 82-65-4303Wozsrgnugij peptide B (Bld) [Mass/Vol]1245.0 pg/mLCritically high<=900.0The [facility] HospitalComment on above:Performed By: #### PALOMA, LIPA #### [facility] [address] [place] [address] Dr. Grzegorz WangBacterial blood cultureOrdered By: Ashleigh Rashid on 11-26-2021 Bacteria identified Cx Nom (Bld)NO GROWTH 5 DAYSMagruder Memorial HospitalCARDIAC BAMBI ADMITon [id number] [Catalytic activity/Vol]75 U/LNormal 26-192The [facility] HospitalComment on above:Performed By: #### PALOMA, LIPA #### [facility] [address] [place] [address] Dr. Grzegorz Waters.MB [Mass/Vol]1.58 ng/mLNormal<=3.60[facility] Comment on above:Performed By: #### PALOMA, LIPA #### [facility] [address] [address] [address] Grzegorz WangHSTROP13.3 pg/mLNormal4.0-51.3The [facility] HospitalComment on above:Result Comment: CUT-OFF POINTS HAVE BEEN ESTABLISHED BASED ON THE FOURTH UNIVERSAL DEFINITIONS OF MYOCARDIAL INFARCTION. THE UPPER REFERENCE LIMIT (URL) OF TROPONIN, DEFINED THE 99TH PERCENTILE OF cTnI DISTRIBUTION IN A REFERENCE POPULATION, HAS BEEN CONFIRMED THE DECISION THRESHOLD FOR DE DIAGNOSIS.Performed By: #### PALOMA, LIPA #### [facility] [address] [place] [address] Dr. Grzegorz Royal85 ng/mLCritically high9-82The [facility] HospitalComment on above:Performed By: #### PALOMA, LIPA #### [facility] [address] [place] [address] Dr. Grzegorz Hurley AUTO DIFFon [id number] #0.0 103/ulNormal0.0-0.1The [facility] HospitalComment on above:Performed By: #### PALOMA, LIPA #### [facility] [address] [place] [address] Dr. Grzegorz WangBasophils/100 WBC (Bld)0.5 %Normal0.2-2.0[facility] Comment on above:Performed By: #### PALOMA, LIPA #### [facility] [address] [place] [address] Dr. Grzegorz Tellez #0.1 103/ulNormal0.0-0.7The [facility] HospitalComment on above: Performed By: #### PALOMA, LIPA #### [facility] [address] [place] [address] Dr. Grzegorz Reisosinophils/100 WBC (Bld)1.3 %Normal0.9-7.0The [facility] Comment on above:Performed By: #### PALOMA, LIPA #### [facility] [address] [place] [address] Dr. Grzegorz Reisrythrocyte distribution width (RBC) [Ratio]16.8 %Critically high 11.0-15.0The [facility] HospitalComment on above:Performed By: #### PALOMA, LIPA #### [facility] [address] [place] [address] Dr. Grzegorz Srivastavaatochristinet (Bld) [Volume fraction]36.6 %Axkuxt97.0-48.0The [facility] HospitalComment on above:Performed By: #### PALOMA, LIPA #### [facility] [address] [place] [address] Dr. Grzegorz WangHemoglobin (Bld) [Mass/Vol]12.1 g/dHRfmxix60.0-16.0The [facility] HospitalComment on above:Performed By: #### PALOMA, LIPA #### [facility] [address] [place] [address] Dr. Grzegorz Barbosa #0.03 10e3/ulNormal0.00-0.03The [facility] HospitalComment on above:Performed By: #### PALOMA, LIPA #### [facility] [address] [place] [address] Dr. Grzegorz Barbosa %0.5 %Normal0.0-0.5The [facility] HospitalComment on above: Performed By: #### PALOMA, LIPA #### [facility] [address] [place] [address] Dr. rGzegorz Soriano #0.9 103/ulCritically low1.2-3.8The [facility] Comment on above:Performed By: #### PALOMA, LIPA #### [facility] [address] [place] [address] Dr. Grzegorz Wilkinshocytes/100 WBC (Bld)15.4 %Critically low20.5-60.0The [facility] HospitalComment on above:Performed By: #### PALOMA, LIPA #### [facility] [address] [place] [address] Dr. Grzegorz AriasUAL DIFF REQNONormalThe [facility] HospitalComment on above: Performed By: #### PALOMA, LIPA #### [facility] [address] [place] [address] Dr. Grzegorz Delaney (RBC) [Entitic mass]27.7 chShsjor53.7-34.0The [facility] HospitalComment on above:Performed By: #### PALOMA, LIPA #### [facility] [address] [place] [address] Dr. Grzegorz Finley (RBC) [Mass/Vol]33.1 g/vOEqokbe56.9-35.2The [facility] HospitalComment on above:Performed By: #### PALOMA, LIPA #### [facility] [address] [place] [address] Dr. Grzegorz WangDEACONESS [facility] [place] [facility] (RBC) [Entitic vol]83.8 iFLmqjsw36.0-99.0The [facility] HospitalComment on above:Performed By: #### PALOMA, LIPA #### [facility] [address] [place] [address] Dr. Grzegorz Wild #0.5 103/ulNormal0.3-0.8The [facility] HospitalComment on above:Performed By: #### PALOMA, LIPA #### [facility] [address] [place] [address] Dr. Grzegorz Lemusocytes/100 WBC (Bld)7.8 %Normal1.7-12.0The [facility] Comment on above:Performed By: #### PALOMA, LIPA #### [facility] [address] [place] [address] Dr. Grzegorz Parada #4.5 103/ulNormal1.4-6.5The [facility] HospitalComment on above:Performed By: #### PALOMA, LIPA #### [facility] [address] [place] [address] Dr. Grzegorz Omerutrophils/100 WBC (Bld)74.5 %Wvdaxd96.0-75.0The [facility] HospitalComment on above:Performed By: #### PALOMA, LIPA #### [facility] [address] [place] [address] Dr. Grzegorz Corteslet mean volume (Bld) [Entitic vol]11.2 fLNormal9.5-13.5The [facility] Centerment on above:Performed By: #### PALOMA, LIPA #### [facility] [address] [address] [address] Grzegorz WangPLT187 103/exDkhoeq722-949Sxi [facility] HospitalComselect [facility] on above: Performed By: #### PALOMA, LIPA #### [facility] [address] [address] [address] Grzegorz WangRBC4.37 106/ulNormal4.20-5.40The [facility] HospitalComselect [facility] on above:Performed By: #### PALOMA, LIPA #### [facility] [address] [address] [address] Grzegorz WangWBC6.0 103/ulNormal4.0-11.0The [facility] on above: Performed By: #### PALOMA, LIPA #### [facility] [address] [place] [address] Dr. Grzegorz WangCT ABD/PELVIS WO CONon [id number] ABD/PELVIS WO CONEXAMINATION: CT ABD/PELVIS WO CON, [...] Electronically authenticated by: MANDI MANRIQUEZ Date: 2021-11-26 15:08[facility] WO CONon [id number] [facility] WO CONEXAMINATION: CT HEAD WO CON, CT [...] authenticated by: SHANIA WASHINGTON Date: 2021-11-26 14:44 [facility]Mad[facility] URINE PROFILEon [id number] Ql (U)Negative NormalNEGATIVESelect Medical Specialty Hospital - [place] NorthComment on above:Performed By: #### CBC #### [facility] [address] [place] [address] Dr. Grzegorz Lovearity (U)CLEARNormalCLEARSelect Medical Specialty Hospital - [place] NorthComment on above: Performed By: #### CBC #### [facility] [address] [place] [address] Dr. Grzegorz Delvalle (U)LT. YELLOWNormalYELLOWSelect Medical Specialty Hospital - [place] NorthComment on above:Performed By: #### CBC #### [facility] [address] [place] [address] Dr. Grzegorz Dawson micrscopic examination will be performed if indicated. NormalSelect Medical Specialty Hospital - [place] NorthComment on above:Performed By: #### CBC #### [facility] [address] [address] [address] Grzegorz WangGlucose Ql (U)NegativeNormalNEGATIVESelect Medical Specialty Hospital - [place] NorthComment on above:Performed By: #### CBC #### [facility] [address] [place] [address] Dr. Grzegorz WagnHemoglobin Ql (U)TRACE-INTACTAbnormalNEGATIVESelect Medical Specialty Hospital - [place] NorthComment on above:Performed By: #### CBC #### [facility] [address] [place] [address] Dr. Grzegozr WangKetones Ql (U)NegativeNormalNEGATIVESelect Medical Specialty Hospital - [place] NorthComment on above:Performed By: #### CBC #### [facility] [address] [place] [address] Dr. Grzegorz WangLEUKOCYTESNegativeNormalNEGATIVESelect Medical Specialty Hospital - [place] NorthComment on above:Performed By: #### CBC #### [facility] [address] [place] [address] Dr. Grzegorz Álvareztrashley Ql (U)NegativeNormalNEGATIVEThe [facility] HospitalComment on above:Performed By: #### CBC #### [facility] [address] [address] [address] Grzegorz WangpH (U)5.5 [pH]Normal5-9The [facility] HospitalComment on above: Performed By: #### CBC #### [facility] [address] [address] [address] Grzegorz WangSPEC GRAVITY<=1.382Gxesymlx7.005-<=1.025[facility] Comment on above:Performed By: #### CBC #### [facility] [address] [place] [address] Dr. Grzegorz Jones PROTEINNegativeNormalNEGATIVE/ TRACEThe [facility] Comment on above:Performed By: #### CBC #### [facility] [address] [place] [address] Dr. Grzegorz Durham MICRO INDINDICATEDNormalThOhioHealth Riverside Methodist HospitalComment on above: Performed By: #### CBC #### [facility] [address] [place] [address] Dr. Grzegorz Hsubilinogen Qn (U)0.2 {Lidya'U}/dLNormal0.2 - 1.0The [facility] HospitalComment on above:Performed By: #### CBC #### [facility] [address] [place] [address] Dr. Grzegorz WagnPROF 14(COMP METB)on 71-01-1580Xbasisi [Mass/Vol]3.5 g/dLNormal 3.4-5.0The [facility] HospitalComment on above:Performed By: #### PALOMA, LIPA #### [facility] [address] [place] [address] Dr. Grzegorz WangAlbumin/Globulin [Mass ratio]1.1 {ratio}NormalSelect Medical Specialty Hospital - [place] NorthComment on above:Performed By: #### PALOMA, LIPA #### [facility] [address] [place] [address] Dr. Grzegorz Oleary [Catalytic activity/Vol]89 U/XEkzaay49-206Nzc [facility] HospitalComment on above:Performed By: #### PALOMA, LIPA #### [facility] [address] [place] [address] Dr. Grzegorz Cummings [Catalytic activity/Vol]22 U/JPdxqtw06-13Pkb [facility] HospitalComment on above:Performed By: #### PALOMA, LIPA #### [facility] [address] [place] [address] Dr. Grzegorz Peters gap [Moles/Vol]10.2 mmol/LNormalThe [facility] Comment on above:Performed By: #### PALOMA, LIPA #### [facility] [address] [place] [address] Dr. Grzegorz Wilcox [Catalytic activity/Vol]18 U/VPzvznl94-48Htx [facility] Medical Centerment on above:Performed By: #### PALOMA, LIPA #### [facility] [address] [place] [address] Dr. Grzegorz WangBilirubin [Mass/Vol]0.6 mg/dLNormal0.2-1.0[facility] Comment on above:Performed By: #### PALOMA, LIPA #### [facility] [address] [place] [address] Dr. Grzegorz WangCalcium [Mass/Vol]9.1 mg/dLNormal8.5-10.1[facility] Comment on above:Performed By: #### PALOMA, LIPA #### [facility] [address] [place] [address] Dr. Grzegorz WangChloride [Moles/Vol]106 mmol/KCwxxxd73-592Ehl [facility] Comment on above:Performed By: #### PALOMA, LIPA #### [facility] [address] [place] [address] Dr. Grzegorz WangCO2 [Moles/Vol]29.5 mmol/BHwkfde24.0-32.0[facility] Comment on above:Performed By: #### PALOMA, LIPA #### [facility] [address] [place] [address] Dr. Grzegorz WangCreatinine [Mass/Vol]0.86 mg/dLNormal0.55-1.02[facility] [place] NorthComment on above:Performed By: #### PALOMA, LIPA #### [facility] [address] [address] [address] Grzegorz ReisGFR-AF ALBANIAN>60Normal>=60The [facility] HospitalComment on above:Performed By: #### PALOMA, LIPA #### [facility] [address] [place] [address] Dr. Grzegorz ReisGFR-NON AF ALBANIAN>60Normal>=60The [facility] HospitalComment on above:Performed By: #### PALOMA, LIPA #### [facility] [address] [place] [address] Dr. Grzegorz WangGlobulin (S) [Mass/Vol]3.1 g/dLNormalThe [facility] HospitalComment on above:Performed By: #### PALOMA, LIPA #### [facility] [address] [place] [address] Dr. Grzegorz WangGlucose [Mass/Vol]98 mg/xCExnloo74-073OkiSelect Medical Specialty [facility] [place] [facility] Comment on above:Performed By: #### PALOMA, LIPA #### [facility] [address] [place] [address] Dr. Grzegorz WangPotassium [Moles/Vol]2.7 mmol/LCritically low3.5-5.1The [facility] HospitalComment on above:Performed By: #### PALOMA, LIPA #### [facility] [address] [place] [address] Dr. Grzegorz WangProtein [Mass/Vol]6.6 g/dLNormal6.4-8.2The [facility] Comment on above:Performed By: #### PALOMA, LIPA #### [facility] [address] [place], [place] [address] Dr. Grzegorz Hernandezum [Moles/Vol]143 mmol/DXxyfje227-421CsdSelect Medical Specialty [facility] [place] [facility] Comment on above:Performed By: #### PHIL DOW #### [facility] [address] [place] [address] Dr. Grzegorz Padron nitrogen [Mass/Vol]12.0 mg/dLNormal7.0-18.0The [facility] HospitalComment on above:Performed By: #### PHIL DOW #### [facility] [address] [place] [address] Dr. Grzegorz Padron nitrogen/Creatinine [Mass ratio]14.0 mg/mgNoPremier HealthComment on above:Performed By: #### PHIL DOW #### [facility] [address] [place] [address] Dr. Grzegorz Borja [id number] Coag (PPP) [Relative time]1.00 {INR} NormalThe [facility] HospitalComment on above:Performed By: #### CBC #### [facility] [address] [place] [address] Dr. Grzegorz Hercules GUIDELINESSEE BELOWUniversity Hospitals St. John Medical CenterComment on above:Result Comment: DESIRED INR: 2.0 - 3.0 CONDITIONS NOT LISTED BELOW 2.5 - 3.5 FOR PROSTHETIC HEART VALVE REPLACEMENT 2.5 - 3.5 RECURRENT THROMBOSIS Performed By: #### CBC #### [facility] [address] [place] [address] Dr. Grzegorz Davis Coag (PPP) [Time]10.8 sNormal9.0-11.6The [facility] Comment on above:Performed By: #### CBC #### [facility] [address] [place] [address] Dr. Grzegorz Aguilar [id number] Coag (Bld) [Time]23.1 wUkvkup20.3-36.2The [facility] Medical Centerment on above:Performed By: #### CBC #### [facility] [address] [place] [address] Dr. Grzegorz De Oliveira MICROSCOPIC ONLYon [id number] SEENNormalNONE SEENSelect Medical Specialty Hospital - [facility] NorthComselect [facility] on above:Performed By: #### CBC #### [facility] [address] [place] [address] Dr. Grzegorz Valentin identified Cx Nom (U)NOT INDICATEDNoalThOhioHealth Riverside Methodist HospitalComselect [facility] on above:Performed By: #### CBC #### [facility] [address] [place] [address] Dr. Grzegorz WangCASTRHIANNON SEENNormalNONE SEENSelect Medical Specialty Hospital - [facility] NorthComselect [facility] on above:Performed By: #### CBC #### [facility] [address] [place] [address] Dr. Grzegorz Seguraystals LM Nom (Urine sed)NONE SEENNormalNONE SEENMemorial [facility] on above:Performed By: #### CBC #### [facility] [address] [place] [address] Dr. Grzegorz Nuñezthelial cells LM Ql (Urine sed)FEWAbnormalNONE SEEN /RAREThe [facility] HospitalComselect [facility] on above:Performed By: #### CBC #### [facility] [address] [place] [address] Dr. Grzegorz SaldañaCOUSALMAE SEENNormalNONE SEENMemorial Health System [facility] Hospital on above:Performed By: #### CBC #### [facility] [address] [place] [address] Dr. Grzegorz WangSfdquERW7-5Eyjjfe4-5Rbz [facility] HospitalComselect [facility] on above:Performed By: #### CBC #### [facility] [address] [place] [address] Dr. Grzegorz WangWBC0-2AbnormalNONE SEENSelect Medical Specialty Hospital - [facility] NorthComselect specialty hospital[facility] on above: Performed By: #### CBC #### [facility] [address] [place] [address] Dr. Grzegorz WangXR CHEST 1 Von [id number] CHEST 1 VEXAM: Chest x-ray HISTORY: . Asthenia . COMPARISON: 09/02/2021 TECHNIQUE: Single view of the chest. FINDINGS: Heart and vascularity are unremarkable. Lungs are free of focal infiltrates. Loop recorder overlies the left heart border. Atherosclerotic changes of the thoracic aorta are noted. Impression: No acute heart or lung disease identified. Electronically authenticated by: NATACHA JAUREGUI Date: 2021-11-26 14:21[facility] BRAIN HEAD WO CONTRASTon [id number] BRAIN HEAD WO CONTRAST EXAM DESCRIPTION: CT [...] By: ISMAEL AGUILAR MD Signed Out: 11/24/21 14:21:18[facility] CenterED Adult Data - Texton [id number] Adult Data - TextED Adult Data Entered [...] PNED ; Probability: 0 ; Diagnosis Code: [id number] Fall Date: 11/24/2021 ; Diagnosis Type: Reason For Visit ; Confirmation: Confirmed ; Clinical Dx: Fall ; Classification: Medical ; Clinical Service: Emergency medicine ; Code: PNED ; Probability: 0 ;Diagnosis Code: [id number] Procedure History ED Devices Present on Arrival [...] living, hemodialysis, infusion clinic, usp, assisted living, alf, homeless prison, etc.)? : No Fabio BATISTA, Jennifer - 11/24/2021 15:[address] [facility] Discharge On License Of [facility] [id number] Discharge EducationDermatology Cuts Closed With [place]: Care Instructions Your Care Instructions A cut can happen anywhere on your body. The doctor used kemi to close the cut. [place] easily and quickly close a cut, which [...] your doctor if you can take an onro-rud-gsqblpf medicine. When should you call for help? [...] Where can you learn more? Go to [email or web address] Enter E525 in the search box to learn more about Cuts Closed With Kemi: Care Instructions. Current as of: April 08, 2019 Content Version: 12.7 ? [employer]. Care instructions adapted under license by your healthcare professional. If you have questions about a medical condition or this instruction, always ask your healthcare professional. [employer] disclaims any warranty or liability for your [...] He domo will (more content not included)... [facility] CenterED Emergency Severity Index Adult-Texton 04-22-7171AY Emergency Severity Index Adult-TextESI - Adult Entered On: 11/24/2021 12:33 EDT Performed On: 11/24/2021 12:33 EDT by Jennifer Mccarthy RN JUSTINO DCP GENERIC CODE Visit Reason : FALL Tracking Triage Date/Time : 11/24/2021 12:33 EDT Tracking Reg Status : Requested Tracking Acuity : [id number] Tracking Group : [facility] Tracking Jennifer Mccarthy RN - 11/24/2021 12:33 EDTNoMercy Health [facility] CenterED Nrsing Adlt Triage Sep Scrning - Texton [id number] Nrsing Adlt Triage Sep Scrning - TextED Nursing Adult Triage Sepsis Screening Tool Entered On: 11/24/2021 13:00 EDT Performed On: 11/24/2021 13:00 EDT by Jennifer Mccarthy RN Adult Sepsis Screening Sepsis Infection Screening ED : Yes Sepsis Vitals Screening ED : None/ NA(Peds) Jennifer Mccarthy RN - 11/24/2021 13:00 EDTMiami Valley Hospital CenterED Patient Summaryon [id number] Patient SummaryMemorial [facility] Emergency Department Discharge Instructions [address] [place] [address] \.br\(Patient Copy)\.br\ \.br\Name: OZZIE GIFFORD : 1950 \.br\Allergies: penicillin\.br\Diagnosis: Accidental fall; CHI (closed head injury); Contusion of rib on rightside; Laceration of scalp\.br\ \.br\ Visit Date: 11/24/2021 12:30:03 \.br\ Current Date Time: 11/24/2021 17:30:08 \.br\Address: [address] [place], [place] [address] [address] \.br\ \.br\ \.br\Primary Care Provider: \.br\Name: NO FAMILY PHYSICIAN, 837\.br\Phone: \.br\ \.br\Emergency Department Care Providers: \.br\ Primary Physician: LUIS DARNELL MD \.br\.br\ \.br\.br\Thank you for choosing [facility] for your emergency care. You are very important to us. Our goal is to demonstrate our high quality medical care, and provide you with a very good patient experience.\.br\.br\You may receive a survey about our service. Please take the time tocomplete the survey and return it so we can continue to enhance our service.\.br\.br\Thank you zaki katz for allowing the [facility] Emergency Department to care for your medical needs. If you have questions about your care or follow up information please contact us at [phone].\.br\.br\ Follow-Up Instructions\.br\ \.br\OZZIE GIFFORD has been given these follow-up instructions:\.br\.br\.br\With: Address: When: \.br\[facility] [address], [address] [place] [address]\.br\ Business (1) Within 7 to 10 days \.br\.br\.br\With: Address: When: \.br\[address] FAMILY PHYSICIAN Within 3 to 5 days \.br\.br\.br\.br\.br\Patient Education Materials\.br\ \.br\OZZIE GIFFORD has been given the followingpatient education materials:\.br\.br\Cuts Closed With Kemi: Care Instructions\.br\Your Care Instructions\.br\A cut can happen anywhere on your body.\.br\The doctor used kemi to close the cut. [place] easily and quickly close a cut, which [...] your doctor if you can take an jivh-lyt-aqghqhv medicine.\.br\When should you call for help?\.br\ Call [...] do not get b (more content not included)...[facility]ED [facility] Reporton [id number] Physician Report Patient: OZZIE GIFFORD Age: 71 [...] [facility] Location: Posterior head. The character of symptoms is pain. Therapy today: see nurses notes. Associated symptoms: denies loss of consciousness. This is a 71 y/o female presenting to the ED via EMS for evaluation of a mechanical fall. [place] and she was going down steps and [...] tenderness, no swelling, no deformity. Psychiatric: Cooperative. Fabius coma scale Eye response: 4 /4, verbal [...] BRAIN HEAD WO CONTRAST (more content not included)...[facility] CenterED Pre-Arrival Formon [id number] Pre-Arrival FormPre-Arrival Summary Name: KARTIK, Current Date: 11/24/2021 12:31:19 EDT Gender: Date of : Age: Pre-Arrival Type: EMS ETA: 11/24/2021 12:53:00 EDT Primary Care Physician: Presenting Problem: Pre-Arrival User: Kailyn Jacobs RN Referring Source: Location: [address] [place] [address] Emergency Department [address] [place] [id number] Notes: Vital Signs: Doctor Call Back: DNR Status: Miscellaneous Issues:[facility] CenterED Progress Noteon [id number] Progress NotePt presents to ED via EMS [...] verbalized understanding, pt ambulatory with steady [facility] Triage Adult-Text on [id number] Triage Adult-TextED Triage Entered On: 11/24/2021 13:00 EDT Performed On: 11/24/2021 12:59 EDT by Jennifer Mccarthy RN Triage (As Of: 11/24/2021 13:00:25 EDT) Diagnoses(Active) Fall Date: 11/24/2021 ; Diagnosis Type: Reason For Visit ; Confirmation: Confirmed ; Clinical Dx: Fall ; Classification: Medical ; Clinical Service: Non- Specified ; Code: PNED ; Probability: 0 ; Diagnosis Code: [id number] (As Of: 11/24/2021 13:00:25 EDT) Vitals/Ht/Wt Temperature [...] Jennifer Mccarthy RN - 11/24/2021 12:59 EDT [facility] HospitalUrine culture routineOrdered By: Rafiq Bahena on 91-94-8242Clniizgy identified Cx Nom (U) Escherichia coliMagruder Memorial HospitalAlbumin [Mass/volume] in Serum or PlasmaOrdered By: Ashleigh Rashid on 59-96-4023Ylnhksn [Mass/Vol]3.0 g/dL3.2-5.5 [facility] HospitalBasophils Auto (Bld) [#/Vol]Ordered By: Ashleigh Rashid on 77-44-4125Odxdvfecl (Bld) [#/Vol]0.0 10*3/uL0.0-0.2FKindred Hospital LimaBasophils/100 WBC Auto (Bld)Ordered By: Ashleigh Rashid on 11-22-2021 Basophils/100 WBC (Bld)0.6 %.[facility] HospitalCreatinine and Glomerular filtration rate.predicted panel (S/P/Bld)Ordered By: Ashleigh Rashid on 83-49-0465Epaudgnlla [Mass/Vol]1.10 mg/dL0.44-1.03[facility] HospitalComment on above:Delta: 2.08 on 11/21/21Eosinophils Auto (Bld) [#/Vol]Ordered By: Ashleigh Rashid on 45-69-3969Aprdzqxrtdt (Bld) [#/Vol]0.2 10*3/uL 0.0-0.45[facility] HospitalEosinophils/100 WBC Auto (Bld)Ordered By: Ashleigh Rashid on 56-81-6497Kzwnumdrxuf/100 WBC (Bld)4.4 %.[facility] HospitalErythrocyte distribution width Auto (RBC) [Ratio]Ordered By: Ashleigh Rashid on 40-40-9268Fqoylcprobe distribution width (RBC) [Ratio]20.7 %11.9-15.3 [facility] HospitalEstimated glomerular filtration rate (GFR) non- AmericanOrdered By: Ashleigh Rashid on 23-54-4050KGG/1.73 sq M.predicted among non-blacks MDRD (S/P/Bld) [Vol rate/Area]49 mL/MinMagruder Memorial HospitalGlobulin Calc (S) [Mass/Vol]Ordered By: Ashleigh Rashid on 56-95-5223Lbkexjno (S) [Mass/Vol]2.4 g/dLMagruder Memorial HospitalHematocrit Auto (Bld) [Volume fraction]Ordered By: Ashleigh Rashid on 50-94-3921Fadochwkhf (Bld) [Volume fraction]36.9 %34.0-46.4FKindred Hospital LimaHemoglobin [Mass/volume] in BloodOrdered By: Ashleigh Rashid on 11-93-5207Mscwbbwrqh (Bld) [Mass/Vol]12.1 g/dL11.8-15.4FKindred Hospital LimaLaboratory - Chemistry and Chemistry - challengeOrdered By: Ashleigh Rashid on 89-86-5475Reykwwmrv [Mass/Vol]2.1 mg/dL1.6-2.6FKindred Hospital LimaLaboratory - Hematology and Cell countsOrdered By: Ashleigh Rashid on 38-15-8976Mbopucwjh RBC/100 WBC (Bld) [Ratio]0.1 %0-0.5FKindred Hospital LimaLeukocytes [#/volume] in Blood by Automated countOrdered By: Ashleigh Rashid on 55-15-2793ALT (Bld) [#/Vol]4.7 10*3/uL4.5-11.0[facility] HospitalLymphocytes Auto (Bld) [#/Vol]Ordered By: Ashleigh Rashid on 23-35-8593Nptknxnukdq (Bld) [#/Vol] 1.2 10*3/uL1.00-4.8[facility] HospitalLymphocytes/100 WBC Auto (Bld)Ordered By: Ashleigh Rashid on 69-52-3183Sgcmrrwqyiv/100 WBC (Bld)26.0 %. [facility] Auto (RBC) [Entitic mass]Ordered By: Ashleigh Rashid on 81-01-0239MWN (RBC) [Entitic mass]27.2 pg24.7-34.3FKindred Hospital LimaMCHC Auto (RBC) [Mass/Vol]Ordered By: Ashleigh Rashid on 50-82-8571EQVQ (RBC) [Mass/Vol]32.6 g/dL32.0-35.0[facility] HospitalMCV Auto (RBC) [Entitic vol]Ordered By: Ashleigh Rashid on 46-63-3393RWO (RBC) [Entitic vol] 83.5 oW09-035CfsljpzryMagruder Memorial HospitalMonocytes Auto (Bld) [#/Vol] Ordered By: Ashleigh Rashid on 13-22-7285Sawkkqejq (Bld) [#/Vol]0.4 10*3/uL0.0-0.8 [facility] HospitalMonocytes/100 WBC Auto (Bld)Ordered By: Ashleigh Rashid on 46-62-4947Vuyuwbtnx/100 WBC (Bld)8.4 %.[facility] Neutrophils Auto (Bld) [#/Vol]Ordered By: Ashleigh Rashid on 97-48-3188Iacdcdxlbob (Bld) [#/Vol]2.8 10*3/uL1.8-7.7FKindred Hospital LimaNeutrophils/100 WBC Auto (Bld)Ordered By: Ashleigh Rashid on 36-44-6938Jjhoaybayzi/100 WBC (Bld)60.6 % .[facility] HospitalNo Panel InformationOrdered By: Ashleigh Rashid on 11-27-7741Lbvfjqctn GFR ()59 mL/MinMagruder Memorial HospitalComment on above:GFR estimated reference range: According to KDOQI guidelines, <60 ml/min/1.73m2 is sufficient todiagnose a patient with chronic kidney disease.Pharmacy Creatinine Clearance (Chem44.22[facility] HospitalPlatelet mean volume Auto (Bld) [Entitic vol]Ordered By: Ashleigh Rashid on 60-35-1840Aaxfozhb mean volume (Bld) [Entitic vol]9.7 fL6.3-10.7FKindred Hospital LimaPlatelets Auto (Bld) [#/Vol]Ordered By: Ashleigh Rashid on 38-27-4323Adzvlupwf (Bld) [#/Vol]184 10*3/eA401-781RmgljnruyMagruder Memorial HospitalProtein [Mass/volume] in Serum or PlasmaOrdered By: Ashleigh Rashid on 02-63-2246Eriuzej [Mass/Vol]5.4 g/dL6.1-7.9[facility] HospitalRBC Auto (Bld) [#/Vol]Ordered By: Ashleigh Rashid on 89-83-5476WFF (Bld) [#/Vol]4.43 10*6/uL3.60-5.00[facility], Beachwooderum or plasma alanine aminotransferase measurement without P-5'-P (enzymatic activiOrdered By: Ashleigh Rashid on 73-55-7343CYW No additional P-5'-P [Catalytic activity/Vol]16 U/L10-60 [facility], Beachwooderum or plasma albumin/globulin mass ratio Ordered By: Ashleigh Rashid on 71-37-4445Tuxmgvp/Globulin [Mass ratio]1.3 {ratio} [facility], Beachwooderum or plasma alkaline phosphatase measurement (enzymatic activity/volume)Ordered By: Ashleigh Rashid on 92-24-2569CJI [Catalytic activity/Vol]70 U/A09-51HiohpvaiuSelect Medical [facility], Beachwooderum or plasma anion gap determinationOrdered By: Ashleigh Rashid on 55-31-5879Crrsm gap [Moles/Vol]12.2 mmol/L6.0-15.0[facility], Beachwooderum or plasma aspartate aminotransferase measurement (enzymatic activity/volume)Ordered By: Ashlegih Rashid on 13-43-7138TZP [Catalytic activity/Vol]15 U/F10-87HtzamrootSelect Medical [facility] Rehabilitation Hospital, Beachwooderum or plasma calcium measurement (mass/volume)Ordered By: Ashleigh Rashid on 32-43-5081Yqevxft [Mass/Vol]8.9 mg/dL8.2-10.2FMansfield Hospitalerum or plasma chloride measurement (moles/volume)Ordered By: Ashleigh Rashid on 27-17-8691Bzcytjfi [Moles/Vol]115 mmol/Y07-018DrxoirqbvSelect Medical Cleveland Clinic Rehabilitation Hospital, Beachwooderum or plasma glucose measurement (mass/volume)Ordered By: Ashleigh Rashid on 55-56-7647Gjayjkd [Mass/Vol]93 mg/lP54-880NywxrrdmoMagruder Memorial Hospital Comment on above:ADA recommended reference rangeRandom Glucose Reference Range is dependent on time and content of last meal. Glucose of more than 200 mg/dL in a nonstressed, ambulatory subject supports the diagnosisof Diabetes Mellitus. Serum or plasma potassium measurement (moles/volume)Ordered By: Ashleigh Rashid on 39-19-0091Hhrnruayi [Moles/Vol]3.1 mmol/L3.5-5.1FMansfield Hospitalerum or plasma sodium measurement (moles/volume)Ordered By: Ashleigh Rashid on 35-00-7993Hjxjgy [Moles/Vol]147 mmol/V299-546QiaranbbhMagruder Memorial Hospital Serum or plasma total bilirubin measurement (mass/volume)Ordered By: Ashleigh Rashid on 61-40-7834Xtlzgijer [Mass/Vol]0.7 mg/dL0.3-1.2FMansfield Hospitalerum or plasma total carbon dioxide measurement (moles/volume)Ordered By: Ashleigh Rashid on 66-22-3783DV4 [Moles/Vol]22.9 mmol/L22.0-30.0[facility], Beachwooderum or plasma urea nitrogen measurement (mass/volume)Ordered By: Ashleigh Rashid on 58-80-6099Wgfv nitrogen [Mass/Vol]28 mg/dL9-23[facility] HospitalAmphetamine Screen Ql (U)Ordered By: Rafiq Bahena on 11-21-2021 Amphetamines Ql (U)NegativeNegativeMagruder Memorial HospitalAutomated erythrocytes count in urine sediment (number/area)Ordered By: Rafiq Bahena on 06-13-2780ZIV Auto (Urine sed) [#/Area]0-1 [HPF]0-4FKindred Hospital LimaAutomated leukocytes count in urine sediment (number/area)Ordered By: Rafiq Bahena on 83-35-3509QGJ Auto (Urine sed) [#/Area]3-4 [HPF]0-4FKindred Hospital LimaBarbiturates [Presence] in UrineOrdered By: Rafiq Bahena on 22-22-6652Hizojwxnlfoe Ql (U)NegativeNegMetroHealth Main Campus Medical CenterBasophils Auto (Bld) [#/Vol]Ordered By: Rafiq Bahena on 11-21-2021 Basophils (Bld) [#/Vol]0.0 10*3/uL0.0-0.2FKindred Hospital Lima Basophils/100 WBC Auto (Bld)Ordered By: Rafiq Bahena on 81-50-4665Getehjnqd/100 WBC (Bld)0.8 %.[facility] HospitalBenzodiazepines [Presence] in UrineOrdered By: Rafiq Bahena on 12-60-3640Purprfacbxtgmuc Ql (U)Negative NegativeMagruder Memorial HospitalBilirubin Test strip Ql (U)Ordered By: Rafiq Bahena on 64-65-6431Wanscpilm Ql (U)NegativeNegativeMagruder Memorial HospitalBlood hemoglobin measurement (mass/volume)Ordered By: Rafiq Bahena on 12-04-0651Vmdensdwqm (Bld) [Mass/Vol]11.6 g/dL11.8-15.4FKindred Hospital LimaBlood leukocytes automated count (number/volume)Ordered By: Rafiq Bahena on 20-54-9029HUP (Bld) [#/Vol]5.3 10*3/uL4.5-11.0[facility] HospitalBody fluid albumin measurement (mass/volume)Ordered By: Rafiq Bahena on 35-06-0953Kkfbbdl (Body fld) [Mass/Vol]3.4 g/dL3.2-5.5FKindred Hospital LimaCOVID CepheidOrdered By: Ashleigh Rashid on 11-21-2021 SARS-CoV-2 (COVID-19) Ab IA QlNegativeNegativeMagruder Memorial Hospital Comment on above:This is a duplicate [employer] Xpert Xpress CoV-2/Flu/RSV Plus RNA by RT-PCR result to be used for statistical tracking purpose only.SARS-CoV-2 (COVID-19) RNA SIOBHAN+probe Ql (Unsp spec)[facility] HospitalCOVID-19 Positive/NegativeOrdered By: Rafiq Bahena on 21-25-0620EURH-CoV-2 (COVID-19) N gene SIOBHAN+probe Ql (Resp)IndeterminateNegativeMagruder Memorial Hospital Comment on above:Testing for SARS-CoV-2 by RT-PCRThis test was developed and its performance characteristics determined by [employer] ([employer]) and validated at the [facility]. This test has not been [...] revoked sooner.COVID-19 SOFIAOrdered By: Rafiq Bahena on 69-05-3087VNRN-CoV+SARS-CoV-2 (COVID-19) Ag IA.rapid Ql (Resp)NegativeNegMetroHealth Main Campus Medical CenterComment on above:This is a duplicate [employer] SARS Antigen (WALKER) result to be used for statistical tracking purpose only.Cannabinoids [Presence] in Urine by Screen methodOrdered By: Rafiq Bahena on 56-81-2221Qresdpshjxxu Screen Ql (U)NegativeNegativeMagruder Memorial HospitalComment on above:These are unconfirmed results and should not be used for legal purposes. Drug Cut-Off Concentration: AMPH 1000 ng/mL RONALD 200 ng/mL CARMELA 200 ng/mL COCM 300 ng/mL OP 300 ng/mL PCP 25 ng/mL THC 20 ng/mLColor Auto (U)Ordered By: Rafiq Bahena on 20-46-6224Wdgou (U)YellowOhiohealth Riverside Methodist HospitalCreatinine and Glomerular filtration rate.predicted panel (S/P/Bld)Ordered By: Rafiq Bahena on 26-44-1008Rwqjtawtud [Mass/Vol]2.08 mg/dL0.44-1.03[facility] HospitalEosinophils Auto (Bld) [#/Vol]Ordered By: Rafiq Bahena on 18-77-6667Etokijaxnpf (Bld) [#/Vol]0.2 10*3/uL0.0-0.45[facility] HospitalEosinophils/100 WBC Auto (Bld) Ordered By: Rafiq Bahena on 02-58-3987Nlfgzjnfmdx/100 WBC (Bld)3.7 %.[facility] HospitalErythrocyte distribution width Auto (RBC) [Ratio]Ordered By: Rafiq Bahena on 99-22-7627Nrqlgubigim distribution width (RBC) [Ratio]20.4 %11.9-15.3FKindred Hospital LimaEstimated glomerular filtration rate (GFR) non- AmericanOrdered By: Rafiq Bahena on 38-15-4028TAM/1.73 sq M.predicted among non-blacks MDRD (S/P/Bld) [Vol rate/Area]23 mL/MinMagruder Memorial HospitalGlobulin Calc (S) [Mass/Vol]Ordered By: Rafiq Bahena on 79-73-9411Cywjohti (S) [Mass/Vol]2.1 g/dLMagruder Memorial Hospital Glucose Glucometer (BldC) [Mass/Vol]Ordered By: Rafiq Bahena on 11-21-2021 Glucose [Mass/Vol]134 mg/dLMagruder Memorial HospitalComment on above: Random Glucose Reference Range is dependent on time and content of last meal. Glucose of more than 200 mg/dL in a nonstressed, ambulatory subject supports the diagnosis of Diabetes Mellitus.Hematocrit Auto (Bld) [Volume fraction]Ordered By: Rafiq Bahena on 86-22-1253Lxvomyjjiy (Bld) [Volume fraction]35.6 %34.0-46.4 [facility] HospitalKetones Auto test strip (U) [Mass/Vol]Ordered By: Rafiq Bahena on 57-56-8315Mqtzext (U) [Mass/Vol]NegativeNegativeMagruder Memorial HospitalLaboratory - Chemistry and Chemistry - challengeOrdered By: Rafiq Bahena on 05-70-4722IT8 [Moles/Vol]23.8 mmol/L23.0-27.0[facility] HospitalHCO3 (Bld) [Moles/Vol]22.6 mmol/L23.0-29.0[facility] HospitalLaboratory - Drug toxicologyOrdered By: Rafiq Bahena on 94-53-2313Smwjdkq Ql (U)NegativeNegativeMagruder Memorial Hospital Laboratory - Hematology and Cell countsOrdered By: Rafiq Bahena on 11-21-2021 Nucleated RBC/100 WBC (Bld) [Ratio]0.0 %0-0.5FKindred Hospital Lima Laboratory - UrinalysisOrdered By: Rafiq Bahena on 52-46-8868Acxgkmq casts LM Ql (Urine sed)0-8 [LPF]0-8[facility] HospitalLymphocytes Auto (Bld) [#/Vol]Ordered By: Rafiq Bahena on 73-57-3970Jtheilniuye (Bld) [#/Vol]1.1 10*3/uL1.00-4.8[facility] HospitalLymphocytes/100 WBC Auto (Bld) Ordered By: Rafiq Bahena on 96-92-1795Prfuaiabwim/100 WBC (Bld)20.4 %.[facility] Health[facility] Auto (RBC) [Entitic mass]Ordered By: Rafiq Bahena on 63-36-5336UKD (RBC) [Entitic mass]26.9 pg24.7-34.3FKindred Hospital LimaMCHC Auto (RBC) [Mass/Vol]Ordered By: Rafiq Bahena on 93-59-3080BOCI (RBC) [Mass/Vol]32.6 g/dL32.0-35.0[facility] HospitalMCV Auto (RBC) [Entitic vol]Ordered By: Rafiq Bahena on 31-39-5802ATT (RBC) [Entitic vol]82.5 gP85-981CtoihvhizMagruder Memorial HospitalMonocyte %Ordered By: Rafiq Bahena on 25-94-8896Vpdfyeyc %17 umol/B91-28JhwewksdnMagruder Memorial Hospital Monocytes Auto (Bld) [#/Vol]Ordered By: Rafiq Bahena on 31-11-3301Yqqvvrtxh (Bld) [#/Vol]0.5 10*3/uL0.0-0.8[facility] HospitalMonocytes/100 WBC Auto (Bld)Ordered By: Rafiq Bahena on 47-57-0456Nhmrxteyb/100 WBC (Bld)9.9 %.[facility] HospitalNeutrophils Auto (Bld) [#/Vol]Ordered By: Rafiq Bahena on 34-83-5306Sjigcggjtrn (Bld) [#/Vol]3.5 10*3/uL1.8-7.7FKindred Hospital LimaNeutrophils/100 WBC Auto (Bld)Ordered By: Rafiq Bahena on 10-87-6485Mjyllzyqxym/100 WBC (Bld)65.2 %.[facility] Nitrite Test strip Ql (U)Ordered By: Rafiq Bahena on 89-20-5744Amzjwjr Ql (U) PositiveNegativeMagruder Memorial HospitalNo Panel InformationOrdered By: Ashleigh Rashid on 40-87-2600Durcuvd B12 Level> 7500 pg/oF482-851FdenapcvlMagruder Memorial HospitalNo Panel InformationOrdered By: Rafiq Bahena on 11-21-2021 Arterial Blood Base Excess-1.9 mmol/L-3.0-3.0[facility] Arterial Blood Oxygen Content7.1 mmol/L6.6-9.7FKindred Hospital Lima Arterial Blood Oxygen Wspwfhnivq81.9 %95.0-100.0[facility] HospitalArterial Blood Partial Pressure CO237.8 mm[Hg]35.0-45.0[facility] HospitalArterial Blood Partial Pressure O282.7 mm[Hg]80.0-100.0[facility] HospitalArterial Blood pH7.407.35-7.45[facility] HospitalBlood Gas Critical ValueSee commentMagruder Memorial Hospital Comment on above:Critical Value called on: 11/21/2021 at 06:17Blood Gas Sample SiteLeft radialMagruder Memorial HospitalFiO221 %[facility] HospitalEstimated GFR ()28 mL/MinMagruder Memorial HospitalComment on above:GFR estimated reference range: According to KDOQI guidelines, <60 ml/min/1.73m2 is sufficient todiagnose a patient with chronic kidney disease.Pharmacy Creatinine Clearance (Chem22.98[facility] HospitalBedside Glucose CommentGlu2: cleaned meterMagruder Memorial HospitalPhencyclidine Screen Ql (U)Ordered By: Rafiq Bahena on 11-21-2021 Phencyclidine Ql (U)NegativeNegMetroHealth Main Campus Medical CenterPlatelet mean volume Auto (Bld) [Entitic vol]Ordered By: Rafiq Bahena on 11-21-2021 Platelet mean volume (Bld) [Entitic vol]9.6 fL6.3-10.7FKindred Hospital LimaPlatelets Auto (Bld) [#/Vol]Ordered By: Rafiq Bahena on 11-21-2021 Platelets (Bld) [#/Vol]140 10*3/nV331-520QhqpgnpmoMagruder Memorial Hospital Protein Auto test strip (U) [Mass/Vol]Ordered By: Rafiq Bahena on 11-21-2021 Protein (U) [Mass/Vol]NegativeNegMetroHealth Main Campus Medical CenterProtein [Mass/volume] in Serum or PlasmaOrdered By: Rafiq Bahena on 31-95-5002Hivbjue [Mass/Vol]5.5 g/dL6.1-7.9[facility] HospitalRBC Auto (Bld) [#/Vol] Ordered By: Rafiq Bahena on 80-78-6861DTK (Bld) [#/Vol]4.31 10*6/uL3.60-5.00 [facility], Beachwooderum or plasma alanine aminotransferase measurement without P-5'-P (enzymatic activiOrdered By: Rafiq Bahena on 02-39-6733KXX No additional P-5'-P [Catalytic activity/Vol]17 U/Z70-12KvphzrhyoSelect Medical [facility], Beachwooderum or plasma albumin/globulin mass ratioOrdered By: Rafiq Bahena on 86-69-2147Gksowgi/Globulin [Mass ratio]1.6 {ratio}[facility], Beachwooderum or plasma alkaline phosphatase measurement (enzymatic activity/volume)Ordered By: Rafiq Bahena on 59-30-0074BII [Catalytic activity/Vol]74 U/S45-09KkdfrkpxaSelect Medical Cleveland Clinic Rehabilitation Hospital, Beachwooderum or plasma anion gap determinationOrdered By: Rafiq Bahena on 49-12-4117Ormdv gap [Moles/Vol] 14.6 mmol/L6.0-15.0[facility], Beachwooderum or plasma aspartate aminotransferase measurement (enzymatic activity/volume)Ordered By: Rafiq Bahena on 73-42-8966CVE [Catalytic activity/Vol]19 U/H45-55KckwahanvSelect Medical [facility] Rehabilitation [facility], Beachwooderum or plasma calcium measurement (mass/volume)Ordered By: Rafiq Bahena on 70-03-7322Bzkyzlx [Mass/Vol]9.1 mg/dL8.2-10.2FMansfield Hospitalerum or plasma chloride measurement (moles/volume)Ordered By: Rafiq Bahena on 93-86-9877Fefoifem [Moles/Vol]107 mmol/P65-474EdpxtjomxSelect Medical [facility], Beachwooderum or plasma ethanol measurement (mass/volume)Ordered By: Rafiq Bahena on 01-08-1867Peruqmf [Mass/Vol]mg/dLMagruder Memorial HospitalEthanol [Mass/Vol]TNPMagruder Memorial HospitalComment on above: Test not performedSerum or plasma glucose measurement (mass/volume)Ordered By: Rafiq Bahena on 48-54-3841Cdwewlm [Mass/Vol]124 mg/rR83-607UivccgiwhMagruder Memorial HospitalComment on above:ADA recommended reference rangeRandom Glucose Reference Range is dependent on time and content of last meal. Glucose of more than 200 mg/dL in a nonstressed, ambulatory subject supports the diagnosisof Diabetes Mellitus.Serum or plasma potassium measurement (moles/volume)Ordered By: Rafiq Bahena on 22-31-1906Ykozssvhu [Moles/Vol]3.1 mmol/L3.5-5.1FMansfield Hospitalerum or plasma sodium measurement (moles/volume)Ordered By: Rafiq Bahena on 54-06-4834Corrfx [Moles/Vol]142 mmol/T047-091ZmpgpuzbhSelect Medical [facility] Clinic [facility], Beachwooderum or plasma total bilirubin measurement (mass/volume) Ordered By: Rafiq Bahena on 94-79-9119Fmebjladh [Mass/Vol]0.3 mg/dL0.3-1.2 [facility], Beachwooderum or plasma total carbon dioxide measurement (moles/volume)Ordered By: Rafiq Bahena on 72-77-3447QF2 [Moles/Vol] 23.5 mmol/L22.0-30.0[facility], Beachwooderum or plasma urea nitrogen measurement (mass/volume)Ordered By: Rafiq Bahena on 47-03-2472Vsrz nitrogen [Mass/Vol]49 mg/dL9-23[facility], Beachwoodpecific gravity Auto test strip (U) [Rel density]Ordered By: Rafiq Bahena on 11-21-2021 Specific gravity (U) [Rel density]1.0101.001-1.030[facility], Beachwoodquamous epithelial cells detection in urine sediment by light microscopy Ordered By: Rafiq Bahena on 87-18-5001Lyadirzqps cells.squamous LM Ql (Urine sed)1-2 [HPF]0-2FKindred Hospital LimaTS DL <= 0.005 mIU/L QnOrdered By: Rafiq Bahena on 01-32-5540SZL Qn2.40 m[IU]/L0.45-5.33[facility] HospitalThyroxine (T4) free [Mass/volume] in Serum or PlasmaOrdered By: Rafiq Bahena on 18-74-4593Cxqa T4 [Mass/Vol]0.68 ng/dL0.61-1.12[facility] HospitalTroponin I.cardiac [Mass/volume] in Serum or Plasma by High sensitivity methodOrdered By: Rafiq Bahena on 13-91-8484Lznyhwja I.cardiac High sensitivity method [Mass/Vol]6 pg/mL0-15[facility] Urine bacteria detection by automated methodOrdered By: Rafiq Bahena on 43-10-9212Wjpypbpj Auto Ql (U)2+None SeenMagruder Memorial HospitalUrine clarity by refractometry automatedOrdered By: Rafiq Bahena on 87-36-8423Alsytki Refractometry automated (U)ClearClearFKindred Hospital LimaUrine cocaine detectionOrdered By: Rafiq Bahena on 84-50-8251Aiopyyz Ql (U)Negative NegativeMagruder Memorial HospitalUrine glucose measurement by automated test strip (mass/volume)Ordered By: Rafiq Bahena on 71-42-3742Qnjswlq Auto test strip (U) [Mass/Vol]Normal mg/dLNormUniversity Hospitals Ahuja Medical CenterUrine hemoglobin detection by automated test stripOrdered By: Rafiq Bahena on 62-08-6645Lmdjnpgdwg Auto test strip Ql (U)NegativeNegativeMagruder Memorial HospitalUrine leukocyte esterase detection by automated test stripOrdered By: Rafiq Bahena on 49-68-6008Tuvagsueq esterase Auto test strip Ql (U)1+ NegativeMagruder Memorial HospitalUrobilinogen Auto test strip (U) [Mass/Vol]Ordered By: Rafiq Bahena on 86-41-1285Mrelytzcfcgb (U) [Mass/Vol] Normal mg/dLNormUniversity Hospitals Ahuja Medical CenterpH Auto test strip (U)Ordered By: Rafiq Bahena on 76-32-2826kN (U)5.5 [pH]5.0-9.0[facility] HospitalCBC AUTO DIFFon 23-61-4831KBMR #0.1 103/ulNormal0.0-0.1The [facility] HospitalComment on above:Performed By: #### CBC #### [facility] [address] [address] [address] Grzegorz WangBasophils/100 WBC (Bld)0.6 %Normal0.2-2.0[facility] Comment on above:Performed By: #### CBC #### [facility] 96 [place] [address] Dr. Grzegorz Tellez #0.4 103/ulNormal0.0-0.7The [facility] County HospitalComment on above: Performed By: #### CBC #### [facility] [address] [place] [address] Dr. Grzegorz Reisosinophils/100 WBC (Bld)5.0 %Normal0.9-7.0[facility] Comment on above:Performed By: #### CBC #### [facility] [address] [place] [address] Dr. Grzegorz Reisrythrocyte distribution width (RBC) [Ratio]18.6 %Critically high 11.0-15.0[facility] NorthComment on above:Performed By: #### CBC #### [facility] [address] [place] [address] Dr. Grzegorz WangHematocrit (Bld) [Volume fraction]35.7 %Critically low36.0-48.0 The [facility] HospitalComment on above:Performed By: #### CBC #### [facility] [address] [place] [address] Dr. Grzegorz WangHemoglobin (Bld) [Mass/Vol]11.2 g/dLCritically low12.0-16.0[facility] NorthComment on above:Performed By: #### CBC #### [facility] [address] [place] [address] Dr. Grzegorz Barbosa #0.04 10e3/ulCritically high0.00-0.03[facility] Comment on above:Performed By: #### CBC #### [facility] [address] [place] [address] Dr. Grzegorz Barbosa %0.5 %Normal0.0-0.5The [facility] HospitalComment on above: Performed By: #### CBC #### [facility] [address] [address] [address] Grzegorz Soriano #1.9 103/ulNormal1.2-3.8The [facility] HospitalComment on above:Performed By: #### CBC #### [facility] [address] [place] [address] Dr. Grzegorz Wilkinshocytes/100 WBC (Bld)22.2 %Tbuheb51.5-60.0The [facility] HospitalComment on above:Performed By: #### CBC #### [facility] [address] [place] [address] Dr. Grzegorz Bowers DIFF REQNONormalThe [facility] County HospitalComment on above: Performed By: #### CBC #### [facility] [address] [place] [address] Dr. Grzegorz Delaney (RBC) [Entitic mass]26.4 pgCritically low26.7-34.0The [facility] HospitalComment on above:Performed By: #### CBC #### [facility] [address] [place] [address] Dr. Grzegorz Finley (RBC) [Mass/Vol]31.4 g/cJCodbiu75.9-35.2The [facility] on above:Performed By: #### CBC #### [facility] [address] [place] [address] Dr. Grzegorz Ricks (RBC) [Entitic vol]84.2 hJTckehd06.0-99.0The [facility] on above:Performed By: #### CBC #### [facility] [address] [place] [address] Dr. Grzegorz Wild #0.8 103/ulNormal0.3-0.8The [facility] on above:Performed By: #### CBC #### [facility] [address] [place] [address] Dr. Grzegorz Lemusocytes/100 WBC (Bld)10.0 %Normal1.7-12.0[facility] Comment on above:Performed By: #### CBC #### [facility] [address] [place] [address] Dr. Grzegorz Parada #5.2 103/ulNormal1.4-6.5The [facility] HospitalComment on above:Performed By: #### CBC #### [facility] [address] [place] [address] Dr. Grzegorz Omerutrophils/100 WBC (Bld)61.7 %Lvhxry06.0-75.0The [facility] HospitalComment on above:Performed By: #### CBC #### [facility] [address] [place] [address] Dr. Grzegorz Corteslet mean volume (Bld) [Entitic vol]11.8 fLNormal9.5-13.5The [facility] HospitalComment on above:Performed By: #### CBC #### [facility] [address] [place] [address] Dr. Grzegorz ArriolaT219 103/wzSpifpd917-532Vwh [facility] HospitalComment on above: Performed By: #### CBC #### [facility] [address] [place] [address] Dr. Grzegorz DobsonC4.24 106/ulNormal4.20-5.40The [facility] HospitalComment on above:Performed By: #### CBC #### [facility] [address] [place] [address] Dr. Grzegorz CardonaBC8.4 103/ulNormal4.0-11.0The [facility] HospitalComment on above: Performed By: #### CBC #### [facility] [address] [place] [address] Dr. Grzegorz Vaca LEUKOREDUCEDon [id number] and Rh group Nom (Bld)Cross Match Result Compatible Unit Blood Type O Pos Unit Number [id number] Status Information Transfused Product ID Red Blood Cells Product Code [id number] Cross Match Result Compatible Blood Bank Notes CALLED SARATH GLYNN RN ON MEDSUR 10/17/21 @ 0850 Unit Blood Type O Neg Unit Number [id number] Status Information Transfused Product ID Red Blood Cells Product Code [id number] HealthComment on above:Performed By: #### CBC #### [facility] [address] [place] [address] Dr. Grzegorz New and Rh group Nom (Bld)Cross Match Result Compatible Unit Blood Type O Neg Unit Number [id number] Status Information Transfused Product ID Red Blood Cells Product Code [id number] Cross Match Result Compatible Unit Blood Type O Neg Unit Number [id number] Status Information Transfused Product ID Red Blood Cells Product Code [id number] Hardin Memorial HospitalComment on above:Performed By: #### CBC #### [facility] [address] [place] [address] Dr. Grzegorz Hurley AUTO DIFFon [id number] #0.0 103/ulNormal0.0-0.1The [facility] HospitalComment on above:Performed By: #### CBC #### [facility] [address] [place] [address] Dr. Grzegorz Griffinsophils/100 WBC (Bld)0.7 %Normal0.2-2.0[facility] Comment on above:Performed By: #### CBC #### [facility] [address] [place] [address] Dr. Grzegorz Tellez #0.2 103/ulNormal0.0-0.7The [facility] HospitalComment on above: Performed By: #### CBC #### [facility] [address] [place] [address] Dr. Grzegorz Reisosinophils/100 WBC (Bld)2.9 %Normal0.9-7.0[facility] Comment on above:Performed By: #### CBC #### [facility] [address] [place] [address] Dr. Grzegorz Reisrythrocyte distribution width (RBC) [Ratio]17.8 %Critically high 11.0-15.0The [facility] HospitalComment on above:Performed By: #### CBC #### [facility] [address] [address] [address] Grzegorz WangHematocrit (Bld) [Volume fraction]30.1 %Critically low36.0-48.0 The [facility] HospitalComment on above:Performed By: #### CBC #### [facility] [address] [address] [address] Grzegorz WangHemoglobin (Bld) [Mass/Vol]9.6 g/dLCritically low12.0-16.0The [facility] HospitalComment on above:Performed By: #### CBC #### [facility] [address] [place] [address] Dr. Grzegorz WangIG #0.08 10e3/ulCritically high0.00-0.03[facility] Comment on above:Performed By: #### CBC #### [facility] [address] [place] [address] Dr. Grzegorz WangIG %1.3 %Critically high0.0-0.5The [facility] HospitalComment on above:Performed By: #### CBC #### [facility] [address] [address] [address] Grzegorz Soriano #1.8 103/ulNormal1.2-3.8The [facility] HospitalComment on above:Performed By: #### CBC #### [facility] [address] [place] [address] Dr. Grzegorz Finleymphocytes/100 WBC (Bld)29.4 %Dcazxe28.5-60.0The [facility] HospitalComment on above:Performed By: #### CBC #### [facility] [address] [address] [address] Grzegorz AriasUAL DIFF REQNONormalThe [facility] HospitalComment on above: Performed By: #### CBC #### [facility] [address] [place] [address] Dr. Grzegorz Delaney (RBC) [Entitic mass]25.9 pgCritically low26.7-34.0The [facility] HospitalComment on above:Performed By: #### CBC #### [facility] [address] [address] [address] Grzegorz FinleyHC (RBC) [Mass/Vol]31.9 g/yDGgaziy79.9-35.2The [facility] HospitalComment on above:Performed By: #### CBC #### [facility] [address] [place] [address] Dr. Grzegorz FinleyV (RBC) [Entitic vol]81.4 jURcyxjs33.0-99.0The [facility] HospitalComment on above:Performed By: #### CBC #### [facility] [address] [place] [address] Dr. Grzegorz Wild #0.7 103/ulNormal0.3-0.8The [facility] HospitalComment on above:Performed By: #### CBC #### [facility] [address] [place] [address] Dr. Grzegorz Lemusocytes/100 WBC (Bld)11.9 %Normal1.7-12.0[facility] Comment on above:Performed By: #### CBC #### [facility] [address] [place] [address] Dr. Grzegorz Parada #3.3 103/ulNormal1.4-6.5The [facility] HospitalComment on above:Performed By: #### CBC #### [facility] [address] [place] [address] Dr. Grzegorz Omerutrophils/100 WBC (Bld)53.8 %Xbzree29.0-75.0The [facility] HospitalComment on above:Performed By: #### CBC #### [facility] [address] [place] [address] Dr. Grzegorz Corteslet mean volume (Bld) [Entitic vol]10.5 fLNormal9.5-13.5The [facility] HospitalComment on above:Performed By: #### CBC #### [facility] [address] [place] [address] Dr. Grzegorz WangPLT206 103/nqVvlbgx686-569Ygf [facility] HospitalComment on above: Performed By: #### CBC #### [facility] [address] [address] [address] Grzegorz WangRBC3.70 106/ulCritically low4.20-5.40The [facility] HospitalComment on above:Performed By: #### CBC #### [facility] [address] [address] [address] Grzegorz WangWBC6.1 103/ulNormal4.0-11.0The [facility] HospitalComment on above: Performed By: #### CBC #### [facility] [address] [place] [address] Dr. Grzegorz Canela CHEM 8 (BAS METB)on [id number] gap [Moles/Vol]9.6 mmol/LNormalThe [facility] HospitalComment on above:Performed By: #### CBC #### [facility] [address] [place] [address] Dr. Grzegorz WangCalcium [Mass/Vol]8.5 mg/dLNormal8.5-10.1[facility] Comment on above:Performed By: #### CBC #### [facility] [address] [place] [address] Dr. Grzegorz WangChloride [Moles/Vol]113 mmol/LCritically qjok08-595Ugf [facility] HospitalComment on above:Performed By: #### CBC #### [facility] [address] [place] [address] Dr. Grzegorz WangCO2 [Moles/Vol]26.6 mmol/ADlison84.0-32.0[facility] Comment on above:Performed By: #### CBC #### [facility] [address] [place] [address] Dr. Grzegorz WangCreatinine [Mass/Vol]0.94 mg/dLNormal0.55-1.02The [facility] HospitalComment on above:Performed By: #### CBC #### [facility] [address] [place] [address] Dr. Yilan ChangEGFR-AF ALBANIAN>60Normal>=60The [facility] HospitalComment on above:Performed By: #### CBC #### [facility] [address] [place] [address] Dr. Lantigua ChangEGFR-NON AF MEAEQJGI83 mL/min/1.41m1Yzmftddkrc low>=60The [facility] HospitalComment on above:Performed By: #### CBC #### [facility] [address] [place] [address] Dr. Grzegorz WangGlucose [Mass/Vol]97 mg/zYKtltfr70-655Loq [facility] Comment on above:Performed By: #### CBC #### [facility] [address] [place] [address] Dr. Grzegorz WangPotassium [Moles/Vol]3.2 mmol/LCritically low3.5-5.1The [facility] HospitalComment on above:Performed By: #### CBC #### [facility] [address] [place] [address] Dr. Grzegorz Grantdium [Moles/Vol]146 mmol/LCritically sjtp974-233Eos [facility] HospitalComment on above:Performed By: #### CBC #### [facility] [address] [place] [address] Dr. Grzegorz WangUrea nitrogen [Mass/Vol]38.0 mg/dLCritically high7.0-18.0The [facility] HospitalComment on above:Performed By: #### CBC #### [facility] [address] [place] [address] Dr. Grzegorz Padron nitrogen/Creatinine [Mass ratio]40.4 mg/mgNormalThe [facility] HospitalComment on above:Performed By: #### CBC #### [facility] [address] [place] [address] Dr. Grzegorz BaezC AUTO DIFFon [id number] #0.1 103/ulNormal0.0-0.1The [facility] HospitalComment on above:Performed By: #### CBC #### [facility] [address] [place] [address] Dr. Yilan ChangBasophils/100 WBC (Bld)0.9 %Normal0.2-2.0[facility] Comment on above:Performed By: #### CBC #### [facility] [address] [place] [address] Dr. Grzegorz Tellez #0.2 103/ulNormal0.0-0.7ThOhioHealth Riverside Methodist HospitalComment on above: Performed By: #### CBC #### [facility] [address] [place] [address] Dr. Grzegorz Reisosinophils/100 WBC (Bld)3.1 %Normal0.9-7.0[facility] Comment on above:Performed By: #### CBC #### [facility] [address] [place] [address] Dr. Grzegorz Reisrythrocyte distribution width (RBC) [Ratio]17.6 %Critically high 11.0-15.0[facility] NorthComment on above:Performed By: #### CBC #### [facility] [address] [place] [address] Dr. Grzegorz WangHematocrit (Bld) [Volume fraction]35.7 %Critically low36.0-48.0 The [facility] HospitalComment on above:Performed By: #### CBC #### [facility] [address] [place] [address] Dr. Grzegorz WangHemoglobin (Bld) [Mass/Vol]11.5 g/dLCritically low12.0-16.0[facility] NorthComment on above:Result Comment: rcvd. bloodPerformed By: #### CBC #### [facility] [address] [place] [address] Dr. Grzegorz Barbosa #0.18 10e3/ulCritically high0.00-0.03[facility] Comment on above:Performed By: #### CBC #### [facility] [address] [place] [address] Dr. Grzegorz Barbosa %2.6 %Critically high0.0-0.5The [facility] HospitalComment on above:Performed By: #### CBC #### [facility] [address] [address] [address] Grzegorz Soriano #1.5 103/ulNormal1.2-3.8The [facility] HospitalComment on above:Performed By: #### CBC #### [facility] [address] [address] [address] Grzegorz Finleymphocytes/100 WBC (Bld)21.4 %Jghkum37.5-60.0The [facility] HospitalComment on above:Performed By: #### CBC #### [facility] [address] [address] [address] Grzegorz AriasUAL DIFF REQNONormalThe [facility] HospitalComment on above: Performed By: #### CBC #### [facility] [address] [place] [address] Dr. Grzegorz Finley (RBC) [Entitic mass]26.0 pgCritically low26.7-34.0The [facility] HospitalComment on above:Performed By: #### CBC #### [facility] [address] [place] [address] Dr. Grzegorz Finley (RBC) [Mass/Vol]32.2 g/wGPujdke18.9-35.2The [facility] HospitalComment on above:Performed By: #### CBC #### [facility] [address] [place] [address] Dr. Grzegorz Finley (RBC) [Entitic vol]80.6 fLCritically low81.0-99.0The [facility] HospitalComment on above:Performed By: #### CBC #### [facility] [address] [place] [address] Dr. Grzegorz Wild #0.7 103/ulNormal0.3-0.8The [facility] HospitalComment on above:Performed By: #### CBC #### [facility] [address] [place] [address] Dr. Grzegorz Lemusocytes/100 WBC (Bld)10.8 %Normal1.7-12.0[facility] Comment on above:Performed By: #### CBC #### [facility] [address] [address] [address] Grzegorz Parada #4.2 103/ulNormal1.4-6.5The [facility] HospitalComment on above:Performed By: #### CBC #### [facility] [address] [address] [address] Grzegorz Omerutrophils/100 WBC (Bld)61.2 %Xihgsg29.0-75.0The [facility] HospitalComment on above:Performed By: #### CBC #### [facility] [address] [place] [address] Dr. Grzegorz Corteslet mean volume (Bld) [Entitic vol]9.9 fLNormal9.5-13.5The [facility] HospitalComment on above:Performed By: #### CBC #### [facility] [address] [place] [address] Dr. Grzegorz WangPLT228 103/jgJcunbz437-010Auq [facility] HospitalComment on above: Performed By: #### CBC #### [facility] [address] [place] [address] Dr. Grzegorz WangRBC4.43 106/ulNormal4.20-5.40The [facility]ittman Medical Centerment on above:Performed By: #### CBC #### [facility] [address] [place] [address] Dr. Grzegorz WangWBC6.9 103/ulNormal4.0-11.0The [facility] HospitalComment on above: Performed By: #### CBC #### [facility] [address] [place] [address] Dr. Grzegorz WangBASO #0.0 103/ulNormal0.0-0.1The [facility] HospitalComment on above:Performed By: #### CBC #### [facility] [address] [place] [address] Dr. Grzegorz WangBasophils/100 WBC (Bld)0.8 %Normal0.2-2.0[facility] Comment on above:Performed By: #### CBC #### [facility] [address] [place] [address] Dr. Grzegorz Tellez #0.1 103/ulNormal0.0-0.7The [facility] HospitalComment on above: Performed By: #### CBC #### [facility] [address] [place] [address] Dr. Grzegorz Reisosinophils/100 WBC (Bld)2.4 %Normal0.9-7.0[facility] Comment on above:Performed By: #### CBC #### [facility] [address] [place] [address] Dr. Grzegorz Reisrythrocyte distribution width (RBC) [Ratio]16.8 %Critically high 11.0-15.0The [facility] HospitalComment on above:Performed By: #### CBC #### [facility] [address] [place] [address] Dr. Grzegorz WangHematocrit (Bld) [Volume fraction]23.2 %Critically low36.0-48.0 The [facility] HospitalComment on above:Performed By: #### CBC #### [facility] [address] [place] [address] Dr. Grzegorz WangHemoglobin (Bld) [Mass/Vol]7.4 g/dLCritically low12.0-16.0[facility] NorthComment on above:Performed By: #### CBC #### [facility] [address] [place] [address] Dr. Grzegorz Barbosa #0.05 10e3/ulCritically high0.00-0.03[facility] Comment on above:Performed By: #### CBC #### [facility] [address] [place] [address] Dr. Grzegorz Barbosa %1.0 %Critically high0.0-0.5The [facility] HospitalComselect [facility] on above:Performed By: #### CBC #### [facility] [address] [place] [address] Dr. Grzegorz Soriano #1.4 103/ulNormal1.2-3.8The [facility]yna HospitalComment on above:Performed By: #### CBC #### [facility] [address] [address] [address] Grzegorz Finleymphocytes/100 WBC (Bld)27.8 %Vuvxzw90.5-60.0The [facility] HospitalComment on above:Performed By: #### CBC #### [facility] [address] [place] [address] Dr. Grzegorz Bowers DIFF REQNONormalThe [facility] HospitalComment on above: Performed By: #### CBC #### [facility] [address] [place] [address] Dr. Grzegorz Finley (RBC) [Entitic mass]25.6 pgCritically low26.7-34.0The [facility] HospitalComment on above:Performed By: #### CBC #### [facility] [address] [place] [address] Dr. Grzegorz Finley (RBC) [Mass/Vol]31.9 g/dGLqwrbb83.9-35.2The [facility] HospitalComment on above:Performed By: #### CBC #### [facility] [address] [place] [address] Dr. Grzegorz Ricks (RBC) [Entitic vol]80.3 fLCritically low81.0-99.0The [facility] HospitalComment on above:Performed By: #### CBC #### [facility] [address] [place] [address] Dr. Grzegorz Wild #0.6 103/ulNormal0.3-0.8The [facility] HospitalComment on above:Performed By: #### CBC #### [facility] [address] [place] [address] Dr. Grzegorz Lemusocytes/100 WBC (Bld)11.6 %Normal1.7-12.0[facility] Comment on above:Performed By: #### CBC #### [facility] [address] [place] [address] Dr. Grzegorz Parada #2.8 103/ulNormal1.4-6.5The [facility] HospitalComment on above:Performed By: #### CBC #### [facility] [address] [place] [address] Dr. Grzegorz WangNeutrophils/100 WBC (Bld)56.4 %Cxrsvf60.0-75.0The [facility] HospitalComment on above:Performed By: #### CBC #### [facility] [address] [place] [address] Dr. Grzegorz WangPlatelet mean volume (Bld) [Entitic vol]10.0 fLNormal9.5-13.5The [facility] HospitalComment on above:Performed By: #### CBC #### [facility] [address] [place] [address] Dr. Grzegorz WangPLT193 103/voXtxbgt272-763Iar [facility] HospitalComment on above: Performed By: #### CBC #### [facility] [address] [place] [address] Dr. Grzegorz WangRBC2.89 106/ulCritically low4.20-5.40The [facility] HospitalComment on above:Performed By: #### CBC #### [facility] [address] [place] [address] Dr. Grzegorz WangWBC4.9 103/ulNormal4.0-11.0The [facility] HospitalComselect [facility] on above: Performed By: #### CBC #### [facility] [address] [place] [address] Dr. Grzegorz WangPROF CHEM 8 (BAS METB)on [id number] gap [Moles/Vol]11.4 mmol/LNormalThe [facility] HospitalComment on above:Performed By: #### PALOMA, LIPA #### [facility] [address] [place] [address] Dr. Grzegorz WangCalcium [Mass/Vol]8.3 mg/dLCritically low8.5-10.1The [facility] HospitalComment on above:Performed By: #### PALOMA, LIPA #### [facility] [address] [place] [address] Dr. Grzegorz WangChloride [Moles/Vol]116 mmol/LCritically wdsv79-708GyuSelect Medical Specialty Hospital - [facility] NorthComment on above:Performed By: #### PALOMA, LIPA #### [facility] [address] [address] [address] Grzegorz WnagCO2 [Moles/Vol]21.1 mmol/IXbmiwv46.0-32.0[facility] Comment on above:Performed By: #### PALOMA, LIPA #### [facility] [address] [place] [address] Dr. Grzegorz WangCreatinine [Mass/Vol]1.07 mg/dLCritically high0.55-1.02The [facility] HospitalComment on above:Performed By: #### PALOMA, LIPA #### [facility] [address] [place] [address] Dr. Lantigua ChangEGFR-AF ALBANIAN>60Normal>=60The [facility] HospitalComment on above:Performed By: #### PALOMA, LIPA #### [facility] [address] [place] [address] Dr. Grzegorz ReisGFR-NON AF BITQUUTI84 mL/min/1.81q0Yohdzumfru low>=60The [facility] HospitalComment on above:Performed By: #### PALOMA, LIPA #### [facility] [address] [place] [address] Dr. Grzegorz WangGlucose [Mass/Vol]90 mg/vXFrzqll24-014FofSelect Medical Specialty Hospital [facility] Comment on above:Performed By: #### PALOMA, LIPA #### [facility] [address] [place] [address] Dr. Grzegorz WangPotassium [Moles/Vol]3.5 mmol/LNormal3.5-5.1[facility] Comment on above:Performed By: #### PALOMA, LIPA #### [facility] [address] [place] [address] Dr. Grzegorz WangSodium [Moles/Vol]145 mmol/DImxxyh171-209Qbn [facility] Comment on above:Performed By: #### PALOMA, LIPA #### [facility] [address] [place] [address] Dr. Grzegorz Padron nitrogen [Mass/Vol]59.0 mg/dLCritically high7.0-18.0The [facility] HospitalComment on above:Performed By: #### PALOMA, LIPA #### [facility] [address] [place] [address] Dr. Grzegorz Padron nitrogen/Creatinine [Mass ratio]55.1 mg/mgNormalThe [facility] HospitalComment on above:Performed By: #### PALOMA, LIPA #### [facility] [address] [place] [address] Dr. Grzegorz WangAMYLASEon [id number] [Catalytic activity/Vol]41 U/LNormal 25-115The [facility] HospitalComment on above:Performed By: #### PALOMA, LIPA #### [facility] [address] [place] [address] Dr. Grzegorz Hurley AUTO DIFFon [id number] #0.1 103/ulNormal0.0-0.1The [facility] HospitalComment on above:Performed By: #### PALOMA, LIPA #### [facility] [address] [place] [address] Dr. Grzegorz Griffinsophils/100 WBC (Bld)0.7 %Normal0.2-2.0[facility] Comment on above:Performed By: #### PALOMA, LIPA #### [facility] [address] [place] [address] Dr. Grzegorz Tellez #0.2 103/ulNormal0.0-0.7The [facility] HospitalComselect [facility] on above: Performed By: #### PALOMA, LIPA #### [facility] [address] [place] [address] Dr. Grzegorz Reisosinophils/100 WBC (Bld)2.4 %Normal0.9-7.0[facility] Comment on above:Performed By: #### PALOMA, LIPA #### [facility] [address] [place] [address] Dr. Grzegorz Reisrythrocyte distribution width (RBC) [Ratio]17.1 %Critically high 11.0-15.0The [facility] HospitalComment on above:Performed By: #### PALOMA, LIPA #### [facility] [address] [place] [address] Dr. Grzegorz WangHematocrit (Bld) [Volume fraction]26.0 %Critically low36.0-48.0 The [facility] HospitalComment on above:Performed By: #### PALOMA, LIPA #### [facility] [address] [place] [address] Dr. Grzegorz WangHemoglobin (Bld) [Mass/Vol]8.4 g/dLCritically low12.0-16.0The [facility] HospitalComment on above:Performed By: #### PALOMA, LIPA #### [facility] [address] [place] [address] Dr. Grzegorz Barbosa #0.03 10e3/ulNormal0.00-0.03The [facility] HospitalComment on above:Performed By: #### PALOMA, LIPA #### [facility] [address] [place] [address] Dr. Grzegorz Barbosa %0.4 %Normal0.0-0.5The [facility] HospitalComment on above: Performed By: #### PALOMA, LIPA #### [facility] [address] [place] [address] Dr. Grzegorz WilkinsH #1.9 103/ulNormal1.2-3.8The [facility] HospitalComment on above:Performed By: #### PALOMA, LIPA #### [facility] [address] [place] [address] Dr. Grzegorz Finleymphocytes/100 WBC (Bld)27.3 %Ookfgz82.5-60.0The [facility] HospitalComment on above:Performed By: #### PALOMA, LIPA #### [facility] [address] [place] [address] Dr. Grzegorz AriasUAL DIFF REQNONormalThe [facility] HospitalComment on above: Performed By: #### PALOMA, LIPA #### [facility] [address] [place] [address] Dr. Grzegorz Finley (RBC) [Entitic mass]26.0 pgCritically low26.7-34.0The [facility] HospitalComment on above:Performed By: #### PALOMA, LIPA #### [facility] [address] [place] [address] Dr. Grzegorz Finley (RBC) [Mass/Vol]32.3 g/pDUhdtpd33.9-35.2The [facility] HospitalComment on above:Performed By: #### PALOMA, LIPA #### [facility] [address] [place] [address] Dr. Grzegorz Finley (RBC) [Entitic vol]80.5 fLCritically low81.0-99.0The [facility] HospitalComment on above:Performed By: #### PALOMA, LIPA #### [facility] [address] [place] [address] Dr. Grzegorz Wild #0.7 103/ulNormal0.3-0.8The [facility] HospitalComment on above:Performed By: #### PALOMA, LIPA #### [facility] [address] [place] [address] Dr. Grzegorz Lemusocytes/100 WBC (Bld)10.5 %Normal1.7-12.0[facility] Comment on above:Performed By: #### PALOMA, LIPA #### [facility] [address] [place] [address] Dr. Grzegorz Parada #4.1 103/ulNormal1.4-6.5The [facility] HospitalComment on above:Performed By: #### PALOMA, LIPA #### [facility] [address] [place] [address] Dr. Grzegorz Reisophils/100 WBC (Bld)58.7 %Ietljg64.0-75.0The [facility] HospitalComment on above:Performed By: #### PALOMA, LIPA #### [facility] [address] [place] [address] Dr. Grzegorz Corteslet mean volume (Bld) [Entitic vol]10.4 fLNormal9.5-13.5The [facility] HospitalComment on above:Performed By: #### PALOMA LIPA #### [facility] [address] [address] [address] Grzegorz WangPLT217 103/kpPvwvhq792-601Bdc [facility] HospitalComment on above: Performed By: #### PALOMA LIPA #### [facility] [address] [address] [address] Grzegorz WangRBC3.23 106/ulCritically low4.20-5.40The [facility] HospitalComment on above:Performed By: #### PALOMA LIPA #### [facility] [address] [place] [address] Dr. Grzegorz WangWBC7.1 103/ulNormal4.0-11.0The [facility] HospitalComment on above: Performed By: #### PALOMA LIPA #### [facility] [address] [place] [address] Dr. Grzegorz WangBASO #0.0 103/ulNormal0.0-0.1The [facility] HospitalComment on above:Performed By: #### CBC #### [facility] [address] [place] [address] Dr. Grzegorz Griffinsophils/100 WBC (Bld)0.5 %Normal0.2-2.0[facility] Comment on above:Performed By: #### CBC #### [facility] [address] [place] [address] Dr. Grzegorz Tellez #0.1 103/ulNormal0.0-0.7The [facility] HospitalComment on above: Performed By: #### CBC #### [facility] [address] [address] [address] Grzegorz Reisosinophils/100 WBC (Bld)0.8 %Critically low0.9-7.0The [facility] HospitalComment on above:Performed By: #### CBC #### [facility] [address] [place] [address] Dr. Grzegorz Reisrythrocyte distribution width (RBC) [Ratio]16.8 %Critically high 11.0-15.0The [facility] HospitalComment on above:Performed By: #### CBC #### [facility] [address] [place] [address] Dr. Grzegorz WangHematocrit (Bld) [Volume fraction]19.5 %Critically low36.0-48.0 The [facility] HospitalComment on above:Performed By: #### CBC #### [facility] [address] [place] [address] Dr. Grzegorz WangHemoglobin (Bld) [Mass/Vol]6.0 g/dLCritically low12.0-16.0The [facility] HospitalComment on above:Result Comment: repeatedPerformed By: #### CBC #### [facility] [address] [place] [address] Dr. Grzegorz Barbosa #0.05 10e3/ulCritically high0.00-0.03[facility] Comment on above:Performed By: #### CBC #### [facility] [address] [place] [address] Dr. Grzegorz Barbosa %0.6 %Critically high0.0-0.5The [facility] HospitalComselect [facility] on above:Performed By: #### CBC #### [facility] [address] [place] [address] Dr. Grzegorz Soriano #1.8 103/ulNormal1.2-3.8The [facility] HospitalComment on above:Performed By: #### CBC #### [facility] [address] [place] [address] Dr. Grzegorz Wilkinshocytes/100 WBC (Bld)21.6 %Slbshx79.5-60.0The [facility] HospitalComment on above:Performed By: #### CBC #### [facility] [address] [place] [address] Dr. Grzegorz AriasUAL DIFF REQNONormalThe [facility] HospitalComment on above: Performed By: #### CBC #### [facility] [address] [address] [address] Grzegorz Finley (RBC) [Entitic mass]23.4 pgCritically low26.7-34.0The [facility] HospitalComment on above:Performed By: #### CBC #### [facility] [address] [place] [address] Dr. Grzegorz Finley (RBC) [Mass/Vol]30.6 g/kKUpcgze90.9-35.2The [facility] HospitalComment on above:Performed By: #### CBC #### [facility] [address] [place] [address] Dr. Grzegorz Finley (RBC) [Entitic vol]76.6 fLCritically low81.0-99.0The [facility] HospitalComment on above:Performed By: #### CBC #### [facility] [address] [place] [address] Dr. Grzegorz Wild #0.6 103/ulNormal0.3-0.8The [facility] HospitalComment on above:Performed By: #### CBC #### [facility] [address] [place] [address] Dr. Grzegorz Lemusocytes/100 WBC (Bld)7.3 %Normal1.7-12.0[facility] Comment on above:Performed By: #### CBC #### [facility] [address] [place] [address] Dr. Grzegorz OmerUT #5.9 103/ulNormal1.4-6.5The [facility] HospitalComment on above:Performed By: #### CBC #### [facility] [address] [place] [address] Dr. Grzegorz Omerutrophils/100 WBC (Bld)69.2 %Umzzny56.0-75.0The [facility] HospitalComment on above:Performed By: #### CBC #### [facility] [address] [place] [address] Dr. Grzegorz Kwan mean volume (Bld) [Entitic vol]10.5 fLNormal9.5-13.5The [facility] HospitalComment on above:Performed By: #### CBC #### [facility] [address] [address] [address] Grzegorz WangPLT288 103/zhKjfptl272-187Vgt [facility] HospitalComment on above: Performed By: #### CBC #### [facility] [address] [address] [address] Grzegorz WangRBC2.52 106/ulCritically low4.20-5.40The [facility] HospitalComment on above:Performed By: #### CBC #### [facility] [address] [address] [address] Grzegorz WangWBC8.5 103/ulNormal4.0-11.0The [facility] HospitalComment on above: Performed By: #### CBC #### [facility] [address] [address] [address] Grzegorz WangCT ABD/PELVIS WO CONon [id number] ABD/PELVIS WO CONEXAMINATION: CT ABD/PELVIS WO CON, [...] Electronically authenticated by: LYNN OLSON Date: 2021-10-16 13:53NormOhioHealth Hardin Memorial HospitalCovid-19 PCR (CVDTBH)on [id number]-CoV-2 (COVID-19) RNA SIOBHAN+probe Ql (Unsp spec)Not detectedNormalNOT DETECTEDSelect [facility] Comment on above:Result Comment: When diagnostic testing [...] for this test is supported by the [place] of Health and Human Service's declaration that [...] longer be used).Performed By: #### ERUR #### [facility] [address] [place] [address] Dr. Grzegorz Ribeiro URINE PROFILEon [id number] Ql (U)NegativeNormal NEGATIVESelect Medical Specialty Hospital [facility] NorthComment on above:Performed By: #### LUCHO DOWA #### [facility] [address] [place] [address] Dr. Grzegorz Goldman (U)CLEARNormalCLEARSelect Medical Specialty Hospital [facility] NorthComselect specialty hospital[facility] on above: Performed By: #### PALOMA LIPA #### [facility] [address] [place] [address] Dr. Grzegorz Delvalle (U)LT. YELLOWNormalYELLOWSelect Medical Specialty Hospital - Cincinnati NorthComment on above:Performed By: #### PALOMA LIPA #### [facility] [address] [place] [address] Dr. Grzegorz Dawson micrscopic examination will be performed if indicated. NormalSelect Medical Specialty Hospital - Cincinnati NorthComment on above:Performed By: #### PALOMA, LIPA #### [facility] [address] [place] [address] Dr. Grzegorz WangGlucose Ql (U)NegativeNormalNEGATIVEThe [facility] HospitalComment on above:Performed By: #### PALOMA, LIPA #### [facility] [address] [address] [address] Grzegorz WangHemoglobin Ql (U)SMALLAbnormalNEGATIVESelect Medical [facility]ty [facility] Comment on above:Performed By: #### PALOMA, LIPA #### [facility] [address] [address] [address] Grzegorz WangKetones Ql (U)NegativeNormalNEGATIVESelect Medical Specialty Hospital - [facility] NorthComment on above:Performed By: #### PALOMA, LIPA #### [facility] [address] [address] [address] Grzegorz WangLEUKOCYTESTRACEAbnormalNEGATIVESelect Medical Specialty Hospital [facility] NorthComment on above:Performed By: #### PALOMA, LIPA #### [facility] [address] [place] [address] Dr. Grzegorz WangNitrite Ql (U)NegativeNormalNEGATIVESelect Medical Specialty Hospital [facility] NorthComment on above:Performed By: #### PALOMA, LIPA #### [facility] [address] [place] [address] Dr. Grzegorz WangpH (U)5.5 [pH]Normal5-9[facility] NorthComment on above: Performed By: #### PALOMA, LIPA #### [facility] [address] [place] [address] Dr. Grzegorz WangSPEC GRAVITY1.280Qiezay0.005-<=1.025The [facility] HospitalComment on above:Performed By: #### PALOMA, LIPA #### [facility] [address] [place] [address] Dr. Grzegorz Jones PROTEINNegativeNormalNEGATIVE/ TRACESelect Medical [facility]ty [facility] Comment on above:Performed By: #### PALOMA, LIPA #### [facility] [address] [place] [address] Dr. Grzegorz Durham MICRO INDINDICATEDNoalThOhioHealth Riverside Methodist HospitalComment on above: Performed By: #### PALOMA, LIPA #### [facility] [address] [address] [address] Grzegorz Hsubilevangelina Qn (U)0.2 {Lidya'U}/dLNormal0.2 - 1.0The [facility]ittman Medical Centerment on above:Performed By: #### PALOMA, LIPA #### [facility] [address] [place] [address] Dr. Grzegorz WangLIPASEon [id number] [Catalytic activity/Vol]77.0 U/LNormal 73.0-393.0The [facility] HospitalComment on above:Performed By: #### PALOMA, LIPA #### [facility] [address] [place] [address] Dr. Grzegorz Mayfield BLD IMMUNO SCREENon [id number] BLOODPositiveAbnormal NEGATIVEThe [facility] HospitalComselect specialty hospital[facility] on above:Performed By: #### PALOMA LIPA #### [facility] [address] [place] [address] Dr. Grzegorz WangPROF 14(COMP METB)on [id number] [Mass/Vol]3.4 g/dLNormal 3.4-5.0The [facility] Rittman Medical Centerment on above:Performed By: #### CBC #### [facility] [address] [place] [address] Dr. Grzegorz WangAlbumin/Globulin [Mass ratio]1.2 {ratio}NormalThe [facility] HospitalComselect specialty hospital[facility] on above:Performed By: #### CBC #### [facility] [address] [place] [address] Dr. Grzegorz Oleary [Catalytic activity/Vol]77 U/OZeprda84-690Ejn [facility] HospitalComselect [facility] on above:Performed By: #### CBC #### [facility] [address] [place] [address] Dr. Grzegorz Cummings [Catalytic activity/Vol]18 U/WKsynju74-48Ian [facility] HospitalComselect [facility] on above:Performed By: #### CBC #### [facility] [address] [place] [address] Dr. Grzegorz Peters gap [Moles/Vol]15.3 mmol/LNormalThe [facility] Comment on above:Performed By: #### CBC #### [facility] [address] [address] [address] Grzegorz WangAST [Catalytic activity/Vol]17 U/DEwtply30-25Awn [facility] HospitalComment on above:Performed By: #### CBC #### [facility] [address] [address] [address] Grzegorz WangBilirubin [Mass/Vol]0.4 mg/dLNormal0.2-1.0[facility] Comment on above:Performed By: #### CBC #### [facility] [address] [address] [address] Grzegorz WangCalcium [Mass/Vol]8.5 mg/dLNormal8.5-10.1[facility] Comment on above:Performed By: #### CBC #### [facility] [address] [address] [address] Grzegorz WangChloride [Moles/Vol]104 mmol/SYulnhz36-308Ell [facility] Comment on above:Performed By: #### CBC #### [facility] [address] [address] [address] Grzegorz WangCO2 [Moles/Vol]21.2 mmol/MMqdwlm10.0-32.0[facility] Comment on above:Performed By: #### CBC #### [facility] [address] [address] [address] Grzegorz WangCreatinine [Mass/Vol]1.68 mg/dLCritically high0.55-1.02The [facility] HospitalComment on above:Performed By: #### CBC #### [facility] [address] [address] [address] Grzegorz ReisGFR-AF HJREVAYI85 mL/min/1.25r7Ygpzduxgvd low>=60The [facility] HospitalComment on above:Performed By: #### CBC #### [facility] [address] [address] [address] Grzegorz ReisGFR-NON AF SFIMIUPV82 mL/min/1.79r0Lptfeobfag low>=60The [facility] Medical Centerment on above:Performed By: #### CBC #### [facility] [address] [address] [address] Grzegorz WangGlobulin (S) [Mass/Vol]2.8 g/dLNoTogus VA Medical Center on above:Performed By: #### CBC #### [facility] [address] [address] [address] Grzegorz WangGlucose [Mass/Vol]101 mg/sOExerha98-967FlfSelect Medical Specialty Hospital [facility] Comment on above:Performed By: #### CBC #### [facility] [address] [address] [address] Grzegorz WangPotassium [Moles/Vol]3.5 mmol/LNormal3.5-5.1[facility] Comment on above:Performed By: #### CBC #### [facility] [address] [address] [address] Grzegorz WangProtein [Mass/Vol]6.2 g/dLCritically low6.4-8.2[facility] on above:Performed By: #### CBC #### [facility] [address] [address] [address] Grzegorz WangSodium [Moles/Vol]137 mmol/OEqrbho937-910JckSelect Medical Specialty Hospital [facility] Comment on above:Performed By: #### CBC #### [facility] [address] [address] [address] Grzegorz WangUrea nitrogen [Mass/Vol]83.0 mg/dLCritically high7.0-18.0[facility] on above:Result Comment: repeatedPerformed By: #### CBC #### [facility] [address] [address] [address] Grzegorz WangUrea nitrogen/Creatinine [Mass ratio]49.4 mg/mgNoPremier HealthComselect specialty hospital-[place] on above:Performed By: #### CBC #### [facility] [address] [address] [address] Grzegorz WangPROTIMEon [id number] Coag (PPP) [Relative time]0.99 {INR} NormalSelect Medical Specialty Hospital - Cincinnati NorthComment on above:Performed By: #### PT, PTT #### [facility] [address] [place] [address] Dr. Grzegorz Hercules GUIDELINESSEE BELOWUniversity Hospitals St. John Medical CenterComment on above:Result Comment: DESIRED INR: 2.0 - 3.0 CONDITIONS NOT LISTED BELOW 2.5 - 3.5 FOR PROSTHETIC HEART VALVE REPLACEMENT 2.5 - 3.5 RECURRENT THROMBOSIS Performed By: #### PT, PTT #### [facility] [address] [place] [address] Dr. Grzegorz WangPT Coag (PPP) [Time]10.7 sNormal9.0-11.6The [facility] Comment on above:Performed By: #### PT, PTT #### [facility] [address] [place] [address] Dr. Grzegorz Aguilar [id number] Coag (Bld) [Time]23.5 wFoaaxq97.3-36.2[facility], Beachwoodment on above:Performed By: #### PT, PTT #### [facility] [address] [place] [address] Dr. Grzegorz Solomon AND SCREENon [id number] AND SCREENNegativeUniversity Hospitals St. John Medical CenterComselect specialty hospital[facility] on above:Performed By: #### CBC #### [facility] [address] [place] [address] Dr. Grzegorz De Oliveira MICROSCOPIC ONLYon [id number] SEENFulton State HospitalalNONE SEENSelect Medical Specialty Hospital [facility] NorthComselect specialty hospital-[place] on above:Performed By: #### PALOMA, LIPA #### [facility] [address] [place] [address] Dr. Grzegorz Valentin identified Cx Nom (U)NOT INDICATEDMercy Health – The Jewish Hospital on above:Performed By: #### PALOMA, LIPA #### [facility] [address] [place] [address] Dr. Grzegorz Go SEENFulton State HospitalalNONE SEENSelect Medical Specialty Hospital [facility] NorthComselect specialty hospital[facility] on above:Performed By: #### PALOMA, LIPA #### [facility] [address] [address] [address] Grzegorz Brenner LM Nom (Urine sed)NONE SEENNormalNONE SEENSelect Medical Specialty Hospital - [facility] NorthComselect specialty hospital[facility] on above:Performed By: #### PALOMA, LIPA #### [facility] [address] [address] [address] Lantigua ChangEpithelial cells LM Ql (Urine sed)RARENormalNONE SEEN /RAREThe [facility] HospitalComment on above:Performed By: #### PALOMA, LIPA #### [facility] [address] [address] [address] Grzegorz Strange SEENNormalNONE SEENThe [facility] HospitalComselect specialty [facility] on above:Performed By: #### PALOMA, LIPA #### [facility] [address] [place] [address] Dr. Grzegorz Eason SEENAbnormal0-2The [facility] HospitalComment on above: Performed By: #### PALOMA, LIPA #### [facility] [address] [address] [address] Grzegorz CardonaBCALMAE SEENNormalNONE SEENThe [facility] HospitalComselect specialty [facility] on above: Performed By: #### PALOMA, LIPA #### [facility] [address] [address] [address] Grzegorz Webb [id number] peptide B (Bld) [Mass/Vol]140.0 pg/mL Normal<=900.0The [facility] HospitalComselect [facility] on above:Performed By: #### CBC #### [facility] [address] [address] [address] Grzegorz Navarrete BAMBI ADMITon [id number] [Catalytic activity/Vol]121 U/L Nbhdol17-384Xex [facility] HospitalComselect [facility] on above:Performed By: #### CBC #### [facility] [address] [place] [address] Dr. Grzegorz Waters.MB [Mass/Vol]2.44 ng/mLNormal<=3.60The [facility] Comment on above:Performed By: #### CBC #### [facility] [address] [address] [address] Grzegorz MehtaTROP9.8 pg/mLNormal4.0-51.3The [facility] HospitalComment on above:Result Comment: CUT-OFF POINTS HAVE BEEN ESTABLISHED BASED ON THE FOURTH UNIVERSAL DEFINITIONS OF MYOCARDIAL INFARCTION. THE UPPER REFERENCE LIMIT (URL) OF TROPONIN, DEFINED THE 99TH PERCENTILE OF cTnI DISTRIBUTION IN A REFERENCE POPULATION, HAS BEEN CONFIRMED THE DECISION THRESHOLD FOR DE DIAGNOSIS.Performed By: #### CBC #### [facility] [address] [place] [address] Dr. Grzegorz WangMYO109 ng/mLCritically high9-82[facility] NorthComment on above:Performed By: #### CBC #### [facility] [address] [place] [address] Dr. Grzegorz BaezC AUTO DIFFon [id number] #0.0 103/ulNormal0.0-0.1[facility] NorthComment on above:Performed By: #### CBC #### [facility] [address] [address] [address] Grzegorz WangBasophils/100 WBC (Bld)0.5 %Normal0.2-2.0[facility] Comment on above:Performed By: #### CBC #### [facility] [address] [place] [address] Dr. Grzegorz Tellez #0.1 103/ulNormal0.0-0.7The [facility] HospitalComment on above: Performed By: #### CBC #### [facility] [address] [place] [address] Dr. Grzegorz Reisosinophils/100 WBC (Bld)3.1 %Normal0.9-7.0The [facility] Comment on above:Performed By: #### CBC #### [facility] [address] [place] [address] Dr. Grzegorz Reisrythrocyte distribution width (RBC) [Ratio]16.0 %Critically high 11.0-15.0The [facility] HospitalComment on above:Performed By: #### CBC #### [facility] [address] [place] [address] Dr. Grzegorz Srivastavaatocrit (Bld) [Volume fraction]32.0 %Critically low36.0-48.0 The [facility] HospitalComment on above:Performed By: #### CBC #### [facility] [address] [place] [address] Dr. Grzegorz WangHemoglobin (Bld) [Mass/Vol]10.1 g/dLCritically low12.0-16.0The Adams County HospitalComment on above:Performed By: #### CBC #### [facility] [address] [place] [address] Dr. Grzegorz Barbosa #0.01 10e3/ulNormal0.00-0.03The [facility] County HospitalComment on above:Performed By: #### CBC #### [facility] [address] [place] [address] Dr. Grzegorz Barbosa %0.3 %Normal0.0-0.5The [facility] County HospitalComment on above: Performed By: #### CBC #### [facility] [address] [place] [address] Dr. Grzegorz Soriano #1.7 103/ulNormal1.2-3.8The [facility] HospitalComselect [facility] on above:Performed By: #### CBC #### [facility] [address] [place] [address] Dr. Grzegorz Wilkinshocytes/100 WBC (Bld)43.1 %Jhdgac35.5-60.0[facility] NorthComment on above:Performed By: #### CBC #### [facility] [address] [place] [address] Dr. Grzegorz AriasUAL DIFF REQNONormalThe [facility] County HospitalComment on above: Performed By: #### CBC #### [facility] [address] [place] [address] Dr. Grzegorz Delaney (RBC) [Entitic mass]23.9 pgCritically low26.7-34.0The [facility] HospitalComment on above:Performed By: #### CBC #### [facility] [address] [place] [address] Dr. Grzegorz Finley (RBC) [Mass/Vol]31.6 g/fJPrqwvm06.9-35.2The [facility] HospitalComment on above:Performed By: #### CBC #### [facility] [address] [place] [address] Dr. Grzegorz Finley (RBC) [Entitic vol]75.8 fLCritically low81.0-99.0The [facility] HospitalComment on above:Performed By: #### CBC #### [facility] [address] [place] [address] Dr. Grzegorz Wild #0.4 103/ulNormal0.3-0.8The [facility] HospitalComment on above:Performed By: #### CBC #### [facility] [address] [place] [address] Dr. Grzegorz Lemusocytes/100 WBC (Bld)9.7 %Normal1.7-12.0[facility] Comment on above:Performed By: #### CBC #### [facility] [address] [place] [address] Dr. Grzegorz Parada #1.7 103/ulNormal1.4-6.5The [facility] HospitalComment on above:Performed By: #### CBC #### [facility] [address] [place] [address] Dr. Grzegorz Reisophils/100 WBC (Bld)43.3 %Hfvjkw94.0-75.0The [facility] HospitalComment on above:Performed By: #### CBC #### [facility] [address] [place] [address] Dr. Grzegorz Corteslet mean volume (Bld) [Entitic vol]10.1 fLNormal9.5-13.5The [facility] HospitalComment on above:Performed By: #### CBC #### [facility] [address] [place] [address] Dr. Grzegorz ArriolaT179 103/obBegaxz870-895Bry [facility] County HospitalComment on above: Performed By: #### CBC #### [facility] [address] [place] [address] [address] [address] Grzegorz WangRBC4.22 106/ulNormal4.20-5.40The [facility] County HospitalComment on above:Performed By: #### CBC #### [facility] [address] [place], [place] [address] Dr. Grzegorz WangWBC3.8 103/ulCritically low4.0-11.0The [facility] County HospitalComment on above:Performed By: #### CBC #### [facility] [address] [place] [address] [address] Grzegorz WangCT CSPINE WO CONon [id number] CSPINE WO CONEXAMINATION: CT CSPINE WO CON [...] Electronically authenticated by: JEAN-PIERRE GIRALDO Date: 2021-09-02 19:33[facility] CenterCT STROKE HEAD WOon [id number] STROKE HEAD WOEXAMINATION: CT STROKE HEAD WO [...] Electronically authenticated by: JEAN-PIERRE GIRALDO Date: 2021-09-02 19:29NoPremier HealthCovid-19 PCR (CVDTBH)on [id number]-CoV-2 (COVID-19) RNA SIOBHAN+probe Ql (Unsp spec)DetectedCritically abnormalNOT DETECTEDThe [facility] on above:Result Comment: This test is not yet approved or cleared by the [place] FDA. When there are no FDA-approved or cleared tests available, and other criteria are met, FDA can make tests available under an emergency access mechanism called an Emergency Use Authorization (EUA). The EUA for this test is supported by the [place] of Health and Human Service's declaration that [...] longer be used).Performed By: #### CBC #### [facility] [address] [place] [address] Dr. Grzegorz WangDRUG SCREEN RAPID (URINE)on [id number]U The [facility] County HospitalComment on above:Performed By: #### ERUR #### [facility] [address] [place] [address] Dr. Grzegorz WangBARNegativeNormalNEGATIVEThe [facility] County HospitalComment on above: Performed By: #### ERUR #### [facility] [address] [place] [address] Dr. Grzegorz WangBUPNegativeNormalNEGATIVEThe [facility] County HospitalComment on above: Performed By: #### ERUR #### [facility] [address] [place] [address] Dr. Grzegorz AlexanderZONegativeNormalNEGATIVESelect Medical Specialty Hospital - [facility] NorthComment on above: Performed By: #### ERUR #### [facility] [address] [place] [address] Dr. Grzegorz WangCOCNegativeNormalNEGATIVESelect Medical Specialty Hospital - [facility] NorthComment on above: Performed By: #### ERUR #### [facility] [address] [place] [address] Dr. Grzegorz ConnellUK HealthcareComselect specialty hospital[facility] on above: Result Comment: AMP (Amphetamine): 500ng/mL, BAR (Barbituates): 200 ng/mL, BZO (Benzodiazepines): 150 ng/mL, BUP (Buprenorphine): 10 ng/mL, MITZY (Cocaine): 150 ng/mL, mAMP (Methamphetamine): 500 ng/mL, MTD (Methadone): 200 ng/mL, OPI (Opiates): 100 ng/mL, OXY (Oxycodone): 100 ng/mL, PCP (Phencyclidine): 25 ng/mL, PPX (Propoxyphene): 300 ng/mL, THC (Cannabinoids): 50 ng/mL, TCA (Trycyclic Antidepressants): 300 ng/mLPerformed By: #### ERUR #### [facility] [address] [place] [address] Dr. Grzegorz WangDRUG CUT HEADERDRUG CLASS TEST SYSTEM CUT-OFF CONCENTRATIONS ARE FOLLOWS:NormalThe [facility] HospitalComselect [facility] on above:Performed By: #### ERUR #### [facility] [address] [place] [address] Dr. Grzegorz WangmAMPNegativeNormalNEGATIVESelect Medical Specialty Hospital [facility] NorthComselect specialty hospital[facility] on above: Performed By: #### ERUR #### [facility] [address] [place] [address] Dr. Grzegorz WangMTDNegativeNormalNEGATIVESelect Medical Special[facility] NorthComselect specialty hospital[facility] on above: Performed By: #### ERUR #### [facility] [address] [place] [address] Dr. Grzegorz GutierrezINegativeNormalNEGATIVESelect Medical Specialty Hospital - [facility] NorthComment on above: Performed By: #### ERUR #### [facility] [address] [address] [address] Grzegorz WangOXYNegativeNormalNEGATIVESelect Medical Special[facility] NorthComselect specialty hospital[facility] on above: Performed By: #### ERUR #### [facility] [address] [address] [address] Grzegorz WangPCPNegativeNormalNEGATIVESelect Medical Specialty Hospital - [facility] NorthComment on above: Performed By: #### ERUR #### [facility] [address] [address] [address] Grzegorz WangPPXNegativeNormalNEGATIVESelect Medical [facility] NorthComselect [facility] hospital[facility] on above: Performed By: #### ERUR #### [facility] [address] [place] [address] Dr. Grzegorz WangTCAPositiveAbnormalNEGATIVESelect Medical [facility] Hospital [facility] NorthComment on above: Performed By: #### ERUR #### [facility] [address] [address] [address] Grzegorz WangTHCNegativeNormalNEGATIVESelect Medical [facility] NorthComselect specialty hospital[facility] on above: Performed By: #### ERUR #### [facility] [address] [address] [address] Grzegorz WangLACTATE/LACTIC ACIDon [id number] [Moles/Vol]0.7 mmol/L Normal0.4-1.9The [facility] on above:Performed By: #### ERUR #### [facility] [address] [place] [address] Dr. Grzegorz WangPROF 14(COMP METB)on 33-97-7464Ahfvxbh [Mass/Vol]3.1 g/dL Critically low3.4-5.0The [facility] on above:Performed By: #### CBC #### [facility] [address] [address] [address] Grzegorz WangAlbumin/Globulin [Mass ratio]1.0 {ratio}NormalThe [facility] County HospitalComment on above:Performed By: #### CBC #### [facility] [address] [address] [address] Grzegorz Oleary [Catalytic activity/Vol]81 U/EHylieu35-623Ntp [facility] HospitalComment on above:Performed By: #### CBC #### [facility] [address] [address] [address] Grzegorz CovarrubiasT [Catalytic activity/Vol]21 U/FEbrvhv96-17Kut [facility] HospitalComment on above:Performed By: #### CBC #### [facility] [address] [address] [address] Grzegorz Ortegaon gap [Moles/Vol]11.9 mmol/LNormalThe [facility] Comment on above:Performed By: #### CBC #### [facility] [address] [place] [address] Dr. Grzegorz WangAST [Catalytic activity/Vol]21 U/HDfjobi79-25Puh [facility] HospitalComment on above:Performed By: #### CBC #### [facility] [address] [address] [address] Grzegorz WangBilirubin [Mass/Vol]0.5 mg/dLNormal0.2-1.0[facility] Comment on above:Performed By: #### CBC #### [facility] [address] [place] [address] Dr. Grzegorz WangCalcium [Mass/Vol]8.3 mg/dLCritically low8.5-10.1The [facility] HospitalComment on above:Performed By: #### CBC #### [facility] [address] [place] [address] Dr. Grzegorz WangChloride [Moles/Vol]100 mmol/LEmsotf44-738Pos [facility] Comment on above:Performed By: #### CBC #### [facility] [address] [address] [address] Grzegorz WangCO2 [Moles/Vol]25.6 mmol/SSplbbr00.0-32.0[facility] Comment on above:Performed By: #### CBC #### [facility] [address] [address] [address] Grzegorz WangCreatinine [Mass/Vol]1.39 mg/dLCritically high0.55-1.02The [facility] HospitalComment on above:Performed By: #### CBC #### [facility] [address] [address] [address] Grzegorz ReisGFR-AF OMWNCTIA06 mL/min/1.35s6Cinptprmfb low>=60The [facility] HospitalComment on above:Performed By: #### CBC #### [facility] [address] [address] [address] Grzegorz ReisGFR-NON AF VFQMQCLT62 mL/min/1.46e9Umxprikldu low>=60The [facility] HospitalComment on above:Performed By: #### CBC #### [facility] [address] [address] [address] Grzegorz WangGlobulin (S) [Mass/Vol]3.1 g/dLNormalThe [facility] HospitalComment on above:Performed By: #### CBC #### [facility] [address] [address] [address] Grzegorz WangGlucose [Mass/Vol]96 mg/mZBfrcsv00-595IbrSelect Medical Specialty Hospital - [facility] North Comment on above:Performed By: #### CBC #### [facility] [address] [address] [address] Grzegorz WangPotassium [Moles/Vol]3.5 mmol/LNormal3.5-5.1[facility] Comment on above:Performed By: #### CBC #### [facility] [address] [address] [address] Grzegorz WangProtein [Mass/Vol]6.2 g/dLCritically low6.4-8.2The [facility] HospitalComment on above:Performed By: #### CBC #### [facility] [address] [address] [address] Grzegorz WangSodium [Moles/Vol]134 mmol/LCritically xqq015-642Rdr [facility] HospitalComment on above:Performed By: #### CBC #### [facility] [address] [place] [address] Dr. Grzegorz Padron nitrogen [Mass/Vol]33.0 mg/dLCritically high7.0-18.0The [facility] HospitalComment on above:Performed By: #### CBC #### [facility] [address] [place] [address] Dr. Grzegorz Padron nitrogen/Creatinine [Mass ratio]23.7 mg/mgNoPremier HealthComment on above:Performed By: #### CBC #### [facility] [address] [place] [address] Dr. Grzegorz WangPROTIMEsagar [id number] Coag (PPP) [Relative time]{INR}NormalThe [facility] HospitalComselect specialty hospital[facility] on above:Performed By: #### LUCHO DOWA #### [facility] [address] [place] [address] Dr. Grzegorz Hercules GUIDELINESSEE BELOWUniversity Hospitals St. John Medical CenterComment on above:Result Comment: DESIRED INR: 2.0 - 3.0 CONDITIONS NOT LISTED BELOW 2.5 - 3.5 FOR PROSTHETIC HEART VALVE REPLACEMENT 2.5 - 3.5 RECURRENT THROMBOSIS Performed By: #### PALOMA LIPA #### [facility] [address] [place] [address] Dr. Grzegorz WangPT Coag (PPP) [Time]10.0 sNormal9.0-11.6[facility] Comment on above:Performed By: #### PALOMA LIPA #### [facility] [address] [place] [address] Dr. Grzegorz Aguilar [id number] Coag (Bld) [Time]32.1 zErboup43.3-36.2The [facility] HospitalComment on above:Performed By: #### PALOMA LIPA #### [facility] [address] [place] [address] Dr. Grzegorz WangXR CHEST 1 Von [id number] CHEST 1 VEXAM: Yue x-ray HISTORY: . Altered mental status . COMPARISON: 07/29/2021 TECHNIQUE: AP portable upright view of the chest FINDINGS: Heart and vascularity are unremarkable. Lungs are free of focal infiltrates. Loop recorder overlies the left chest. Atherosclerotic changes of the thoracic aorta are noted. IMPRESSION: No acute heart or lung disease identified. Electronically authenticated by: NATACHA JAUREGUI Date: 2021-09-02 19:18[facility] Medical CenterXR hand RT min 3V*on [id number] hand RT min 3V*[facility] [employer] Other XR hand RT min 3V*[facility] [employer] Other XR hand RT min 3V*[address] [place] [address] [employer] Other XR hand RT min 3V*[place] [address]Msugw [employer] Other XR hand RT min 3V*[facility] [employer] Other XR hand RT min 3V*[facility] [employer] Other XR hand RT min 3V*Patient: Ozzie Gifford MR#: [id number] [employer] Other XR hand RT min 3V*[id number] [employer] Other XR hand RT min 3V*: 1950 Acct:[id number] [employer] Other XR hand RT min 3V*Age/Sex: 71 / F ADM Date: 08/02/21 [facility] [employer] Other XR hand RT min 3V*[place] [facility] Type: [facility] [employer] Other XR hand RT min 3V*Attending Dr: Susie Arrington MD [facility] [employer] Other XR hand RT min 3V*Copies to: Susie Arrington MDWeatherford [employer] Other XR hand RT min 3V*Ordering Provider: Susie Arrington MDWeatherford [employer] Other XR hand RT min 3V*Date of Service: 08/02/21[place] [employer] Other XR hand RT min 3V* XR/XR hand RT min 3V*: Closed nondisplaced fracture [facility] proximal phalanxProv[facility] Hospital [employer] Other XR hand RT min 3V*of right [facility] [employer] Other XR hand RT min 3V*4 viewsRIGHT hand plain filmProvidence Holy Family Hospital [employer] Other XR hand RT min 3V*COMPARISON:07/12/21[place] [employer] Other XR hand RT min 3V*HISTORY:Status post RIGHT long finger proximal phalanx fractureProvidence Holy Family Hospital [employer] Other XR hand RT min 3V*No bony alignment stable. No interval healing. Extensive degeneration.[place] [employer] Other XR hand RT min 3V* XR/XR hand RT min 3V*[place] [employer] Other XR hand RT min 3V*IMPRESSION:Stable findingsProvidence [facility] Family Hospital [employer] Other XR hand RT min 3V*Impression dictated by: Husam Martinez M.D.08/02/2021 12:13 [facility] [employer] Other XR hand RT min 3V*Dictation Location: [id number] [employer] Other XR hand RT min 3V*Transcribed By: SHYANN 08/02/21 [facility]3 [place] [employer] Other XR hand RT min 3V*Dictated By: Husam Martinez DO 08/02/[address] [place] [address] [employer] Other XR hand RT min 3V*Signed By:[employer] Other XR hand RT min 3V*08/02/21 [facility]3[place] [employer] Other BNPon 12-43-2432Cznctcedgln peptide B (Bld) [Mass/Vol] 192.0 pg/mLNormal<=900.0The [facility] HospitalComment on above:Performed By: #### ERUR #### [facility] [address] [place] [address] Dr. Grzegorz Navarrete BAMBI ADMITon [id number] [Catalytic activity/Vol]82 U/L Bxmckr14-888Sgs [facility] HospitalComment on above:Performed By: #### ERUR #### [facility] [address] [place] [address] Dr. Grzegorz Waters.MB [Mass/Vol]2.40 ng/mLNormal<=3.60The [facility] Comment on above:Performed By: #### ERUR #### [facility] [address] [place] [address] Dr. Grzegorz MehtaTROP4.7 pg/mLNormal4.0-51.3The [facility] HospitalComment on above:Result Comment: CUT-OFF POINTS HAVE BEEN ESTABLISHED BASED ON THE FOURTH UNIVERSAL DEFINITIONS OF MYOCARDIAL INFARCTION. THE UPPER REFERENCE LIMIT (URL) OF TROPONIN, DEFINED THE 99TH PERCENTILE OF cTnI DISTRIBUTION IN A REFERENCE POPULATION, HAS BEEN CONFIRMED THE DECISION THRESHOLD FOR DE DIAGNOSIS.Performed By: #### ERUR #### [facility] [address] [place] [address] Dr. Grzegorz QuinnO70 ng/mLNormal9-82The [facility] HospitalComment on above: Performed By: #### ERUR #### [facility] [address] [place] [address] Dr. Grzegorz Hurley AUTO DIFFon [id number] #0.0 103/ulNormal0.0-0.1The [facility] HospitalComment on above:Performed By: #### ERUR #### [facility] [address] [place] [address] Dr. Grzegorz WangBasophils/100 WBC (Bld)0.7 %Normal0.2-2.0[facility] Comment on above:Performed By: #### ERUR #### [facility] [address] [place] [address] Dr. Grzegorz Tellez #0.2 103/ulNormal0.0-0.7The [facility] HospitalComment on above: Performed By: #### ERUR #### [facility] [address] [place] [address] Dr. Grzegorz Reisosinophils/100 WBC (Bld)4.1 %Normal0.9-7.0[facility] Comment on above:Performed By: #### ERUR #### [facility] [address] [place] [address] Dr. Grzegorz Reisrythrocyte distribution width (RBC) [Ratio]15.7 %Critically high 11.0-15.0The [facility] HospitalComment on above:Performed By: #### ERUR #### [facility] [address] [place] [address] Dr. Grzegorz WangHematocrit (Bld) [Volume fraction]32.6 %Critically low36.0-48.0 The [facility] HospitalComment on above:Performed By: #### ERUR #### [facility] [address] [place] [address] Dr. Grzegorz WangHemoglobin (Bld) [Mass/Vol]9.9 g/dLCritically low12.0-16.0The [facility] HospitalComment on above:Performed By: #### ERUR #### [facility] [address] [place] [address] Dr. Grzegorz Barbosa #0.02 10e3/ulNormal0.00-0.03The [facility] HospitalComment on above:Performed By: #### ERUR #### [facility] [address] [place] [address] Dr. Grzegorz Barbosa %0.3 %Normal0.0-0.5The [facility] HospitalComment on above: Performed By: #### ERUR #### [facility] [address] [place] [address] Dr. Grzegorz Soriano #1.7 103/ulNormal1.2-3.8The [facility] HospitalComment on above:Performed By: #### ERUR #### [facility] [address] [place] [address] Dr. Grzegorz Finleymphocytes/100 WBC (Bld)28.0 %Vgaojk50.5-60.0The [facility] HospitalComment on above:Performed By: #### ERUR #### [facility] [address] [place] [address] Dr. Grzegorz Bowers DIFF REQNONormalThe [facility] HospitalComment on above: Performed By: #### ERUR #### [facility] [address] [place] [address] Dr. Grzegorz Finley (RBC) [Entitic mass]23.9 pgCritically low26.7-34.0The [facility] HospitalComment on above:Performed By: #### ERUR #### [facility] [address] [place] [address] Dr. Grzegorz Finley (RBC) [Mass/Vol]30.4 g/vVNtvbvr92.9-35.2The [facility] HospitalComment on above:Performed By: #### ERUR #### [facility] [address] [place] [address] Dr. Grzegorz Finley (RBC) [Entitic vol]78.7 fLCritically low81.0-99.0The [facility] HospitalComment on above:Performed By: #### ERUR #### [facility] [address] [place] [address] Dr. Grzegorz Wild #0.6 103/ulNormal0.3-0.8The [facility] HospitalComment on above:Performed By: #### ERUR #### [facility] [address] [place] [address] Dr. Grzegorz Lemusocytes/100 WBC (Bld)10.4 %Normal1.7-12.0[facility] Comment on above:Performed By: #### ERUR #### [facility] [address] [place] [address] Dr. Grzegorz OmerUT #3.3 103/ulNormal1.4-6.5The [facility] HospitalComment on above:Performed By: #### ERUR #### [facility] [address] [place] [address] Dr. Grzegorz Omerutrophils/100 WBC (Bld)56.5 %Jhyzqj86.0-75.0The [facility] HospitalComment on above:Performed By: #### ERUR #### [facility] [address] [place] [address] Dr. Grzegorz WangPlatelet mean volume (Bld) [Entitic vol]10.2 fLNormal9.5-13.5The [facility] HospitalComment on above:Performed By: #### ERUR #### [facility] [address] [place] [address] Dr. Grzegorz WangPLT216 103/oqMimlyj829-505Nyf [facility] HospitalComment on above: Performed By: #### ERUR #### [facility] [address] [place] [address] Dr. Grzegorz WangRBC4.14 106/ulCritically low4.20-5.40The [facility] on above:Performed By: #### ERUR #### [facility] [address] [place] [address] Dr. Grzegorz WangWBC5.9 103/ulNormal4.0-11.0The [facility] HospitalComment on above: Performed By: #### ERUR #### [facility] [address] [place] [address] Dr. Grzegorz WangCT HEAD WO CONon [id number] HEAD WO CONEXAMINATION: CT HEAD WO CON [...] by: DORIAN GREENE Date: 2021-07-29 15:01[facility] URINE PROFILEon 69-27-4914Keflgfvuw Ql (U)NegativeNormal NEGATIVESelect Medical Specialty Hospital - Cincinnati NorthComment on above:Performed By: #### ERUR #### [facility] [address] [place] [address] Dr. Grzegorz Lovearity (U)CLEARNormalCLEARSelect Medical Specialty Hospital - [facility] NorthComment on above: Performed By: #### ERUR #### [facility] [address] [place] [address] Dr. Grzegorz Delvalle (U)LT. YELLOWNormalYELLOWSelect Medical Specialty Hospital - Cincinnati NorthComment on above:Performed By: #### ERUR #### [facility] [address] [place] [address] Dr. Grzegorz Dawson micrscopic examination will be performed if indicated. NormalThe [facility] HospitalComment on above:Performed By: #### ERUR #### [facility] [address] [place] [address] Dr. Grzegorz WangGlucose Ql (U)NegativeNormalNEGATIVESelect Medical Specialty Hospital - [facility] NorthComment on above:Performed By: #### ERUR #### [facility] [address] [place] [address] Dr. Grzegorz WangHemoglobin Ql (U)NegativeNormalNEGATIVESelect [facility] on above:Performed By: #### ERUR #### [facility] [address] [place] [address] Dr. Grzegorz WangKetones Ql (U)NegativeNormalNEGATIVESelect Medical Specialty Hospital - [facility] NorthComment on above:Performed By: #### ERUR #### [facility] [address] [place] [address] Dr. Grzegorz WangLEUKOCYTESNegativeNormalNEGATIVESelect Medical Specialty Hospital - [facility] NorthComment on above:Performed By: #### ERUR #### [facility] [address] [place] [address] Dr. Grzegorz Paez Ql (U)NegativeNormalNEGATIVEThe [facility]ville HospitalComment on above:Performed By: #### ERUR #### [facility] [address] [place] [address] Dr. Grzegorz WangpH (U)5.5 [pH]Normal5-9The [facility] County HospitalComment on above: Performed By: #### ERUR #### [facility] [address] [place] [address] Dr. Grzegorz WangSPEC GRAVITY1.739Hmhmkk0.005-<=1.025The [facility] County HospitalComment on above:Performed By: #### ERUR #### [facility] [address] [place] [address] Dr. Grzegorz Jones PROTEINNegativeNormalNEGATIVE/ TRACEThe [facility] Comment on above:Performed By: #### ERUR #### [facility] [address] [place] [address] Dr. Grzegorz Durham MICRO INDNOT INDICATEDNormalThe [facility] County HospitalComment on above:Performed By: #### ERUR #### [facility] [address] [place] [address] Dr. Grzegorz Irwin Qn (U)0.2 {Lidya'U}/dLNormal0.2 - 1.0The [facility] County HospitalComment on above:Performed By: #### ERUR #### [facility] [address] [place] [address] Dr. Grzegorz Canela 14(COMP METB)on [id number] [Mass/Vol]3.1 g/dL Critically low3.4-5.0The [facility] HospitalComment on above:Performed By: #### ERUR #### [facility] [address] [place] [address] Dr. Grzegorz WangAlbumin/Globulin [Mass ratio]1.0 {ratio}NormalThe [facility] County HospitalComment on above:Performed By: #### ERUR #### [facility] [address] [place] [address] Dr. Grzegorz Oleary [Catalytic activity/Vol]99 U/DZorckn58-362Sah [facility] HospitalComment on above:Performed By: #### ERUR #### [facility] [address] [place] [address] Dr. Grzegorz CovarrubiasT [Catalytic activity/Vol]18 U/JWjfblo29-43Xqo [facility] HospitalComment on above:Performed By: #### ERUR #### [facility] [address] [place] [address] Dr. Grzegorz Ortegaon gap [Moles/Vol]10.5 mmol/LNormalSelect [facility] Comment on above:Performed By: #### ERUR #### [facility] [address] [place] [address] Dr. Grzegorz WangAST [Catalytic activity/Vol]14 U/LCritically jfx70-87Lpu [facility] HospitalComment on above:Performed By: #### ERUR #### [facility] [address] [place] [address] Dr. Grzegorz WangBilirubin [Mass/Vol]0.3 mg/dLNormal0.2-1.0[facility] Comment on above:Performed By: #### ERUR #### [facility] [address] [place] [address] Dr. Grzegorz WangCalcium [Mass/Vol]8.5 mg/dLNormal8.5-10.1[facility] Comment on above:Performed By: #### ERUR #### [facility] [address] [place] [address] Dr. Grzegorz WangChloride [Moles/Vol]108 mmol/LCritically bcsl02-726Cav [facility] HospitalComment on above:Performed By: #### ERUR #### [facility] [address] [place] [address] Dr. Grzegorz WangCO2 [Moles/Vol]26.0 mmol/UKveugn34.0-32.0[facility] Comment on above:Performed By: #### ERUR #### [facility] [address] [place] [address] Dr. Grzegorz WangCreatinine [Mass/Vol]1.07 mg/dLCritically high0.55-1.02[facility] NorthComment on above:Performed By: #### ERUR #### [facility] [address] [place] [address] Dr. Grzegorz ReisGFR-AF ALBANIAN>60Normal>=60The [facility] HospitalComment on above:Performed By: #### ERUR #### [facility] [address] [address] [address] Grzegorz ReisGFR-NON AF KKGMKPXQ89 mL/min/1.62o3Uwrmaoeahp low>=60The [facility] HospitalComment on above:Performed By: #### ERUR #### [facility] [address] [place] [address] Dr. Grzegorz WangGlobulin (S) [Mass/Vol]3.0 g/dLNormalThe [facility] HospitalComment on above:Performed By: #### ERUR #### [facility] [address] [place] [address] Dr. Grzegorz WangGlucose [Mass/Vol]87 mg/cWGewmwy65-640StsSelect Medical Specialty Hospital [facility] Comment on above:Performed By: #### ERUR #### [facility] [address] [place] [address] Dr. Grzegorz WangPotassium [Moles/Vol]3.5 mmol/LNormal3.5-5.1[facility] Comment on above:Performed By: #### ERUR #### [facility] [address] [place] [address] Dr. Grzegorz WangProtein [Mass/Vol]6.1 g/dLCritically low6.4-8.2[facility] NorthComment on above:Performed By: #### ERUR #### [facility] [address] [place] [address] Dr. Grzegorz WangSodium [Moles/Vol]141 mmol/KJayixt793-757VhvSelect Medical Specialty Hospital [facility] Comment on above:Performed By: #### ERUR #### [facility] [address] [place] [address] Dr. Yilan ChangUrea nitrogen [Mass/Vol]22.0 mg/dLCritically high7.0-18.0[facility] NorthComment on above:Performed By: #### ERUR #### [facility] [address] [place] [address] Dr. Grzegorz Padron nitrogen/Creatinine [Mass ratio]20.6 mg/mgNoPremier HealthComment on above:Performed By: #### ERUR #### [facility] [address] [place] [address] Dr. Grzegorz WangPROTIMEsagar 24-87-2670MUG Coag (PPP) [Relative time]0.99 {INR} NormalThe [facility] County HospitalComment on above:Performed By: #### PTT, PT #### [facility] [address] [place] [address] Dr. Grzegorz Hercules GUIDELINESSEE BELOWUniversity Hospitals St. John Medical CenterComment on above:Result Comment: DESIRED INR: 2.0 - 3.0 CONDITIONS NOT LISTED BELOW 2.5 - 3.5 FOR PROSTHETIC HEART VALVE REPLACEMENT 2.5 - 3.5 RECURRENT THROMBOSIS Performed By: #### PTT, PT #### [facility] [address] [place] [address] Dr. Grzegorz WangPT Coag (PPP) [Time]10.7 sNormal9.0-11.6The [facility] Comment on above:Performed By: #### PTT, PT #### [facility] [address] [place] [address] Dr. Grzegorz Aguilar [id number] Coag (Bld) [Time]31.0 kSgfnqn18.3-36.2[facility] NorthComment on above:Performed By: #### PTT, PT #### [facility] [address] [place] [address] Dr. Grzegorz WangXR CHEST 1 Von [id number] CHEST 1 VEXAM: XR CHEST 1 V [...] Electronically authenticated by: NATACHA TO Date: 2021-07-29 14:54[facility] John Medical CenterXR hand RT min 3V*on [id number] hand RT min 3V*[facility] [employer] Other XR hand RT min 3V*[facility] [employer] Other XR hand RT min 3V*[address] [place] [address] [employer] Other XR hand RT min 3V*[place] [address]V[place] [employer] Other XR hand RT min 3V*XRay [facility] [employer] Other XR hand RT min 3V*[facility] [employer] Other XR hand RT min 3V*Patient: Ozzie Gifford MR#: [id number] [employer] Other XR hand RT min 3V*[id number] [employer] Other XR hand RT min 3V*: 1950 Acct:[id number] [employer] Other XR hand RT min 3V*Age/Sex: 71 / F ADM Date: 07/12/21 [place] [employer] Other XR hand RT min 3V*[place] [facility] Type: [facility] [employer] Other XR hand RT min 3V*Attending Dr: Susie Arrington MD [facility] [employer] Other XR hand RT min 3V*Ordering Provider: Susie Arrington MDWeatherford [facility] Other XR hand RT min 3V*Date of Service: 07/12/21[place] [employer] Other XR hand RT min 3V* XR/XR hand RT min 3V*: Right hand painWeatherford [facility] Other XR hand RT min 3V*Copies to: Susie Arrington MDWeatherford [facility] Other XR hand RT min 3V*XR hand RT min 3V* 07/12/2021 10:43 AM [place] [employer] Other XR hand RT min 3V*SIGNS AND SYMPTOMS: Fall, pain in right hand greatest in the right thumb with swellingWeatherford [facility] Other XR hand RT min 3V*PROTOCOL: Frontal, lateral, and oblique radiographs of the right handWeatherford [facility] Other XR hand RT min 3V*COMPARISON: NoneWeatherford [facility] Other XR hand RT min 3V*FINDINGS:[employer] Other XR hand RT min 3V*There is mild narrowing of the distal interphalangeal joints. There is a mild flexion deformity ofWeatherford [facility] Other XR hand RT min 3V*the fifth proximal interphalangeal joint. There is mild narrowing of the first metacarpophalangealWeatherford [employer] Other XR hand RT min 3V*junction with mild to moderate degenerative change at the first carpometacarpal joint. There is noNmoberly regional medical center [employer] Other XR hand RT min 3V*evidence of acute displaced fracture. No evidence of dislocation.[place] [employer] Other XR hand RT min 3V* XR/XR hand RT min 3V*[place] [employer] Other XR hand RT min 3V*IMPRESSION:[employer] Other XR hand RT min 3V*No evidence of fracture.[employer] Other XR hand RT min 3V*Degenerative changes are noted, greatest in the thumb.[employer] Other XR hand RT min 3V*There is a mild flexion deformity of the fifth proximal interphalangeal joint.[employer] Other XR hand RT min 3V*Impression dictated by: Bambi Sung M.D.07/12/2021 12:29 PMNmoberly regional medical center [employer] Other XR hand RT min 3V*Dictation Location: [id number] [employer] Other XR hand RT min 3V*Transcribed By: SHYANN 07/12/21 [facility] [employer] Other XR hand RT min 3V*Dictated By: Bambi Sung II, MD 07/12/[address] [place] [address] [employer] Other XR hand RT min 3V*Signed By:[employer] Other xr hand RT min 3V*07/12/[address] [place] [address] [employer] Other cbc AUTO DIFFon [id number] #0.1 103/ulNormal 0.0-0.1The [facility] County HospitalComment on above:Performed By: #### CBC #### [facility] [address] [address] [address] Grzegorz Griffinsophils/100 WBC (Bld)0.8 %Normal0.2-2.0[facility] Comment on above:Performed By: #### CBC #### [facility] [address] [address] [address] Grzegorz Tellez #0.3 103/ulNormal0.0-0.7The [facility] HospitalComment on above: Performed By: #### CBC #### [facility] [address] [address] [address] Grzegorz Reisosinophils/100 WBC (Bld)3.8 %Normal0.9-7.0[facility] Comment on above:Performed By: #### CBC #### [facility] [address] [place] [address] Dr. Grzegorz Reisrythrocyte distribution width (RBC) [Ratio]14.1 %Viouil80.0-15.0 [facility] NorthComment on above:Performed By: #### CBC #### [facility] [address] [place] [address] Dr. Grzegorz WangHematocrit (Bld) [Volume fraction]34.4 %Critically low36.0-48.0 The [facility] HospitalComment on above:Performed By: #### CBC #### [facility] [address] [place] [address] Dr. Grzegorz WangHemoglobin (Bld) [Mass/Vol]10.4 g/dLCritically low12.0-16.0The [facility] HospitalComment on above:Performed By: #### CBC #### [facility] [address] [place] [address] Dr. Grzegorz Barbosa #0.04 10e3/ulCritically high0.00-0.03[facility] Comment on above:Performed By: #### CBC #### [facility] [address] [place] [address] Dr. Grzegorz Barbosa %0.5 %Normal0.0-0.5ThOhioHealth Riverside Methodist HospitalComment on above: Performed By: #### CBC #### [facility] [address] [place] [address] Dr. Grzegorz Soriano #1.7 103/ulNormal1.2-3.8The [facility] HospitalComment on above:Performed By: #### CBC #### [facility] [address] [place] [address] Dr. Grzegorz Wilkinshocytes/100 WBC (Bld)22.1 %Vkhhgo41.5-60.0The [facility] HospitalComment on above:Performed By: #### CBC #### [facility] [address] [place] [address] Dr. Grzegorz Bowers DIFF REQNONormalThe [facility] HospitalComment on above: Performed By: #### CBC #### [facility] [address] [place] [address] Dr. Grzegorz Finley (RBC) [Entitic mass]25.6 pgCritically low26.7-34.0The [facility] HospitalComment on above:Performed By: #### CBC #### [facility] [address] [place] [address] Dr. Grzegorz Finley (RBC) [Mass/Vol]30.2 g/oRAidimj39.9-35.2The [facility] HospitalComment on above:Performed By: #### CBC #### [facility] [address] [place] [address] Dr. Grzegorz Ricks (RBC) [Entitic vol]84.5 pCUpmjax10.0-99.0The [facility] HospitalComment on above:Performed By: #### CBC #### [facility] [address] [place] [address] Dr. Grzegorz Wild #0.8 103/ulNormal0.3-0.8The [facility] HospitalComment on above:Performed By: #### CBC #### [facility] [address] [place] [address] Dr. Grzegorz Lemusocytes/100 WBC (Bld)11.1 %Normal1.7-12.0[facility] Comment on above:Performed By: #### CBC #### [facility] [address] [place] [address] Dr. Grzegorz Parada #4.7 103/ulNormal1.4-6.5The [facility] HospitalComment on above:Performed By: #### CBC #### [facility] [address] [place] [address] Dr. Grzegorz Omerutrophils/100 WBC (Bld)61.7 %Fstvvc96.0-75.0The [facility] HospitalComment on above:Performed By: #### CBC #### [facility] [address] [place] [address] Dr. Grzegorz WangPlatelet mean volume (Bld) [Entitic vol]10.6 fLNormal9.5-13.5The [facility] HospitalComment on above:Performed By: #### CBC #### [facility] [address] [place] [address] Dr. Grzegorz WangPLT281 103/oiFnpezy589-817Iix [facility] HospitalComment on above: Performed By: #### CBC #### [facility] [address] [address] [address] Grzegorz WangRBC4.07 106/ulCritically low4.20-5.40The [facility] HospitalComment on above:Performed By: #### CBC #### [facility] [address] [place] [address] Dr. Grzegorz WangWBC7.6 103/ulNormal4.0-11.0The [facility] HospitalComment on above: Performed By: #### CBC #### [facility] [address] [place] [address] Dr. Grzegorz WangCT CHEST WO CONon [id number] CHEST WO CONEXAMINATION: CT CHEST WO CON [...] Electronically authenticated by: LUCI MARADIAGA Date: 2021-05-08 18:59NoPremier HealthCT HEAD WO CONon [id number] HEAD WO CONEXAMINATION: CT HEAD WO CON, [...] Electronically authenticated by: MITZI LOWRY Date: 2021-05-08 17:27NoPremier HealthCT NECK ST WO CONon [id number] NECK ST WO CONEXAMINATION: CT NECK ST [...] The parotid glands, parapharyngeal spaces and left site monitor spaces appear normal. A tiny amount of air in the venous system in the right parapharyngeal space and in the venous system of the right site monitor space. A tiny amount air in probably [...] space and venous system in the right site monitor space, likely iatrogenic. No abnormal fluid collection. Prior right carotid endarterectomy. 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 Electronically authenticated by: BASIM CABAN Date: 2021-05-08 19:23[facility] John Medical CenterPROF CHEM 8 (BAS METB)on [id number] gap [Moles/Vol]12.3 mmol/LNormalThe [facility] HospitalComment on above:Performed By: #### PALOMA LIPA #### [facility] [address] [address] [address] Grzegorz WangCalcium [Mass/Vol]8.4 mg/dLCritically low8.5-10.1The [facility] HospitalComment on above:Performed By: #### PALOMA LIPA #### [facility] [address] [address] [address] Grzegorz WangChloride [Moles/Vol]108 mmol/LCritically opqx62-359Yug [facility] on above:Performed By: #### PALOMA LIPA #### [facility] [address] [address] [address] Grzegorz WangCO2 [Moles/Vol]25.9 mmol/CLbvobc98.0-30.0[facility] Comment on above:Performed By: #### PALOMA, LIPA #### [facility] [address] [address] [address] Grzegorz WangCreatinine [Mass/Vol]1.18 mg/dLCritically high0.52-1.04The [facility] HospitalComment on above:Performed By: #### PALOMA, LIPA #### [facility] [address] [place] [address] Dr. Grzegorz ReisGFR-AF KMJQXTFO52 mL/min/1.93m6Zddvlsoqua low>=60The [facility] HospitalComment on above:Performed By: #### PALOMA, LIPA #### [facility] [address] [place] [address] Dr. Grzegorz Grewal-NON AF EZEOGXRZ26 mL/min/1.38m1Qafiqudojx low>=60The [facility] HospitalComment on above:Performed By: #### PALOMA, LIPA #### [facility] [address] [place] [address] Dr. Grzegorz WangGlucose [Mass/Vol]84 mg/uSCtivnn00-563EufSelect Medical Specialty Hospital [facility] Comment on above:Performed By: #### PALOMA, LIPA #### [facility] [address] [place] [address] Dr. Grzegorz WangPotassium [Moles/Vol]3.2 mmol/LCritically low3.4-5.0[facility] - Cincinnati NorthComment on above:Performed By: #### PALOMA, LIPA #### [facility] [address] [place] [address] Dr. Grzegorz WangSodium [Moles/Vol]143 mmol/IJvbknq101-410VmqSelect Medical Specialty Hospital [facility] Comment on above:Performed By: #### PALOMA, LIPA #### [facility] [address] [place] [address] Dr. Grzegorz WangUrea nitrogen [Mass/Vol]35.0 mg/dLCritically high7.0-18.0The [facility] HospitalComment on above:Performed By: #### PALOMA, LIPA #### [facility] [address] [place] [address] Dr. Grzegorz WangUrea nitrogen/Creatinine [Mass ratio]29.7 mg/mgUniversity Hospitals St. John Medical CenterComment on above:Performed By: #### PHIL DOW #### [facility] [address] [address] [address] Grzegorz WangXR PELVIS 1_2 VIEWSon [id number] PELVIS 1_2 VIEWSEXAM: XR PELVIS 1_2 VIEWS, XR SACRUM_COCCYX HISTORY: History of fall COMPARISON: None. TECHNIQUE: Single supine view of the pelvis FINDINGS: No acute fracture is seen. Joint alignment is normal. Joint spaces are preserved. The soft tissues appear unremarkable. IMPRESSION: No radiographic evidence for acute displaced fracture or malalignment. Electronically authenticated by: LUCI MARADIAGA Date: 2021-05-08 17:24[facility] John Medical CenterXR wrist LT min 3V*on [id number] wrist LT min 3V*[facility] [employer] Other XR wrist LT min 3V*[facility] [employer] Other XR wrist LT min 3V*[address] [place] [address] [employer] Other XR wrist LT min 3V*[place], [place] [address]Qjuoj [employer] Other XR wrist LT min 3V*XRay [facility] [employer] Other XR wrist LT min 3V*[facility] [employer] Other XR wrist LT min 3V*Patient: Ozzie Gifford MR#: [id number] [employer] Other XR wrist LT min 3V*18560Ygxrt [employer] Other XR wrist LT min 3V*: 1950 Acct:[id number] [place] [employer] Other XR wrist LT min 3V*Age/Sex: 70 / F ADM Date: 05/03/21 [place] [employer] Other XR wrist LT min 3V*Loc: [facility] Room: [facility]ENTERP[facility] Other XR wrist LT min 3V*Attending Dr: Susie Arrington MD [employer] Other XR wrist LT min 3V*Ordering Provider: Susie Arrington MDThe [employer] Other XR wrist LT min 3V*Date of Service: 05/03/21[employer] Other XR wrist LT min 3V* XR/XR wrist LT min 3V*: Other specified postprocedural [facility] InstituteThe [employer] [facility] Other XR wrist LT min 3V*Copies to: Susie Arrington MD [employer] Other XR wrist LT min 3V*4 viewsLEFT wrist plain filmWeatherford [employer] Other XR wrist LT min 3V*COMPARISON:03/31/21[employer] Other XR wrist LT min 3V*HISTORY:Status post ORIF distal radius fractureWeatherford [facility] Other XR wrist LT min 3V*No hardware failure. Adequate bony alignment. Healing distal radius fracture noted.[employer] Other XR wrist LT min 3V* XR/XR wrist LT min 3V*[employer] Other XR wrist LT min 3V*IMPRESSION:Healing distal radius fracture. No hardware failure.[employer] Other XR wrist LT min 3V*Impression dictated by: Husam Martinez M.D.05/03/2021 2:12 [facility]ITALP[facility] Other XR wrist LT min 3V*Dictation Location: [place] [address] [employer] Other XR wrist LT min 3V*Transcribed By: SHYANN 05/03/21 1412 [employer] Other XR wrist LT min 3V*Dictated By: Husam Martinez DO 05/03/[address] [facility] [address] [facility]The [employer] [facility] Other XR wrist LT min 3V*Signed By:[employer] Other XR wrist LT min 3V*05/03/21 [facility] CenterThe [employer] Group Other XR FOREARM LT 2 VIEWSon [id number] FOREARM LT 2 VIEWSIMAGES REVIEWED: XR WRIST [...] Electronically authenticated by: MARYSE LANGFORD Date: 2021-03-30 20:17[facility] Medical CenterCardiovascular Lab Reporton [id number] Lab Report [facility] MR #: [id number] Department of Physician: Donna Henderson M.D. Division of Service Date: 03/03/2020 Cardiology Birthdate: 1950 Adult Cardiovascular Room #: [place] [address] Cardiovascular Laboratory Report FINAL IMPRESSION: 1. Moderate [...] femoral vein and artery was obtained. A 6-Montenegrin 11 cm sheath was inserted in each. Difficulty exchanging the micropuncture kit for a 6-Montenegrin sheath encountered for the arterial access site; [...] physiological assessment of the coronary lesions. A 6-Montenegrin XB 3.5 guide catheter was advanced over J-wire and coaxially engaged into the left main ostium. The [employer] pressure wire was advanced through the catheter with pressures normalized just off the exiting the catheter. The wire was used to traverse the suspected stenosis. An instantaneous wave-free ratio was performed. The wire was removed. Final angiography showed SARAH-3 flow with no dissection, thrombus, or distal wire trauma. The guide catheter was removed. A 5-Montenegrin JR4 guide catheter was advanced in and coaxially engaged into the right coronary ostium. The [employer] pressure wire was advanced through the catheter [...] Doty M.D. Date Trans: 03/03/2020 12:28 P/laviniao DN_JN:[id number] cc: Ruben Salvador M.D. Heart Failure/ Transplant Mailstop [address] [facility] [address], [employer] [address] [facility] Josearetha Mailstop [address] [facility] [address]ZnfdgxWspGrand Lake Joint [facility] Vital Signs Date TimeVital SignValuePerforming XyrjgllteDbaebmov16-68-8524 11:28-0400Body eelbym520.94 Marie Collado 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-C Work Phone: [facility]10-23-2025 11:28-0400 Body mass index (BMI) [Ratio]28.7 kg/m2Lisa Collado 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-C Work Phone: [facility]10-23-2025 11:28-0400 Body cudyty65.94 kgLisa Heaven 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-C Work Phone: [facility]10-23-2025 11:28-0400 Diastolic blood mm[Hg]Cindy Collado 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-C Work Phone: [phone]10-23-2025 11:28-0400 Heart ualm332 /minLisa Aichholz 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-C Work Phone: [phone]10-23-2025 11:28-0400 Respiratory rate18 /minLisa Aichholz 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-C Work Phone: [phone]10-23-2025 11:28-0400 SaO2% (BldA) [Mass fraction]96 %Cindy Aichholz 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-C Work Phone: [phone]10-23-2025 11:28-0400 Systolic blood qiyhfaob534 mm[Hg]Cindy Aichholz 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-C Work Phone: [phone]10-16-2025 09:08-0400 Body ipozll393.94 cmLisa Aichholz 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-C Work Phone: [phone] [place], [place] [address]88[address]10-16-2025 09:08-0400 Body mass index (BMI) [Ratio]29 kg/m2Lisa Aichholz 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-C Work Phone: [phone] [place], [place] 688[address]10-16-2025 09:08-0400 Body yrvpqwerdzr42.3 [degF]Cindy Aichholz 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-C Work Phone: [phone]10-16-2025 09:08-0400 Body nxnfvo99.56 kgLisa Aichholz 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-C Work Phone: [phone] [address] Street10-16-2025 09:08-0400 Diastolic blood ecfsukdi43 mm[Hg]Cindy Aichholz 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-C Work Phone: 1(249)[address]10-16-2025 09:08-0400 Heart rate80 /minLisa Aichholz 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-C Work Phone: 1(468)[address]10-16-2025 09:08-0400 Respiratory rate16 /minLisa Aichholz 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-C Work Phone: [facility]10-16-2025 09:08-0400 SaO2% (BldA) [Mass fraction]97 %Cindy Aichholz 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-C Work Phone: 1(660)680-[facility]10-16-2025 09:08-0400 Systolic blood gpieyanc847 mm[Hg]Cindy Aichholz 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-C Work Phone: 1(098)943-[address] [place], [place] 4907007-03-2025 14:50-0400 Body .94 cmLisa Aichholz Work Phone: 1(548)[address]24 [address]07-03-2025 14:50-0400 Body mass index (BMI) [Ratio]30 kg/m2Lisa Aichholz Work Phone: 1(666)[address]07-03-2025 14:50-0400 Body .12 kgLisa Aichholz Work Phone: 1(972)[address]24 [address]07-03-2025 14:50-0400 Diastolic blood ubdbtbxb99 mm[Hg]Cindy Aichholz Work Phone: 1(143)797-[address] [place], [place] 4907007-03-2025 14:50-0400 Heart rate70 /minLisa Aichholz Work Phone: 1(887)959-[address] [place], [place] 4907007-03-2025 14:50-0400 SaO2% (BldA) [Mass fraction]94 %Cindy Aichholz Work Phone: 1(718)875-[address] [place], [place] 4907007-03-2025 14:50-0400 Systolic blood pftwouip669 mm[Hg]Cindy Aichholz Work Phone: 1(689)060-[address] [place], [place] 4907007-01-2025 09:10-0400 Body mass index (BMI) [Ratio]30 kg/m2Lisa Aichholz 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 Work Phone: [facility] HospitalTlszajazhz98-24-0425 09:10-0400Body temperature 97.81 [degF]Cindy Aichholz 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 Work Phone: [facility] HospitalKwxutqskuw02-26-1682 09:10-0400Body uaqdod93.03 kgCindy Collado 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 Work Phone: [facility] HospitalMqsfqihonb37-98-8894 09:10-0400Diastolic blood whkkzqxe80 mm[Hg]Cindy Dakotaz 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 Work Phone: [facility] HospitalQddwzfgvgf47-25-7384 09:10-0400Heart rate58 /min Cindy Dakotaz 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 Work Phone: [facility] HospitalRcokkymkrl76-17-5676 09:10-0400Respiratory rate19 /minLisa Duncanz 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 Work Phone: [facility] HospitalFsszmhxwjk35-87-4738 09:10-5329JvQ1% (BldA) [Mass fraction]97 %Cindyluna Duncanz 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 Work Phone: [facility] HospitalAfhihkrhec78-12-0104 09:10-0400Systolic blood rbvklvoe055 mm[Hg]Cindyluna Duncanz 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 Work Phone: [facility] HospitalUzoijzeixl67-54-9680 10:12-0400Body mass index (BMI) [Ratio]29.32 kg/m2Cindy Collado 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 Work Phone: [facility] HospitalApxhvnnkop32-92-8936 10:12-0400Body temperature 98.8 [degF]Cindyluna Duncanz 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 Work Phone: [facility] HospitalUxaucxhmrh54-67-5711 10:12-0400Body .4 kg Cindy Dakotaz 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 Work Phone: [facility] HospitalTlznjtjmkf79-01-7772 10:12-0400Diastolic blood srgakxzv09 mm[Hg]Cindy Dakotaz 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 Work Phone: [facility] HospitalBfegobelcr89-66-9017 10:12-0400Heart rate71 /min Cindy Césarholz 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 Work Phone: [facility] HospitalNvqhijpiyz57-44-6992 10:12-0400Respiratory rate18 /minCindy Collado 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 Work Phone: [facility] HospitalRwhaczphxp48-84-9968 10:12-7830FsB6% (BldA) [Mass fraction]98 %Cindy Collado 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 Work Phone: noP[facility] SystemsCeirhqvpoh47-25-3731 10:12-0400Systolic blood ahbohtwx358 mm[Hg]Cindy Collado 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 Work Phone: [facility] HospitalTfhtbpjrat96-13-0071 13:09-0400Body mass index (BMI) [Ratio]29.25 kg/z7WszzdJameson Mcleod 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 Work Phone: [facility] HospitalHaxeylzwci74-62-3004 13:09-0400Body vvofsj34.22 kgSajoni Mcleod 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 Work Phone: [facility] HospitalXmswmhufjo39-84-7760 13:09-0400Diastolic blood iurlilgr58 mm[Hg]Jameson Mcleod 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 Work Phone: [facility] HospitalEvvxadqptq48-98-3734 13:09-0400Heart rate66 /min Jameson Mcleod 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 Work Phone: noP[facility] SystemsTleygzsudv34-24-1106 13:09-7716UnD5% (BldA) [Mass fraction]98 %Jameson Mcleod 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 Work Phone: noP[facility] SystemsFuptsotyki11-94-1706 13:09-0400Systolic blood gbmjbipr068 mm[Hg]Jameson Mcleod 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 Work Phone: [facility] HospitalJmwbuzyxcd73-01-7944 13:49-0400Body mass index (BMI) [Ratio]29.55 kg/m2Cindy Collado 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 Work Phone: [facility] HospitalVittvjclxi08-29-0790 13:49-0400Body temperature 98.1 [degF]Cindy Collado 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 Work Phone: noP[facility] SystemsLrkbjegupu19-81-2698 13:49-0400Body jejvkp91.94 kgCindy Collado 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 Work Phone: 1([phone] [place], [place] [address]Npuvdmatcq15-95-5346 13:49-0400Diastolic blood vwkysaai55 mm[Hg]Cindy Césarholz 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 Work Phone: [facility] HospitalSghydwssed94-02-8148 13:49-0400Heart rate74 /min Cindy Césarholz 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 Work Phone: [facility] HospitalAsuzwkezop66-92-3674 13:49-0400Respiratory rate18 /minLisa Césarholz 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 Work Phone: [facility] HospitalUlusktvxcj77-17-4491 13:49-7803SmC8% (BldA) [Mass fraction]96 %Cindy Erickhholz 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 Work Phone: [facility] HospitalFzfkkjfdid72-77-1753 13:49-0400Systolic blood rfvhtude163 mm[Hg]Cindy Césarholz 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 Work Phone: [facility] HospitalLvkpbakjxs88-15-6766 12:49-0500Blood Pressure LocationLauren Monserrat [facility]03-04-2025 12:49-0500Diastolic blood uzyhguyr17 mm[Hg]Kori German [facility]03-04-2025 12:49-0500Heart rate61 /minLauren Monserrat [facility]03-04-2025 12:49-0500Respiratory rate18 /minLauren Monserrat [facility]03-04-2025 12:49-0500Systolic blood ykzrxuhk077 mm[Hg]Kori German [facility]02-19-2025 08:51-0500Diastolic blood mm[Hg]BERNICE CLEMENTE [facility]02-19-2025 08:51-0500Heart rate63 /minJENNIFER CORRIE [facility]02-19-2025 08:51-0500Respiratory rate17 /minJENNIFER CORRIE [facility]02-19-2025 08:51-0500Systolic blood vbdlonns850 mm[Hg]BERNICE CLEMENTE [facility]01-09-2025 10:15-0500Body .94 Urbano Day MD Work Phone: 1(227)458-[address] [place], [place] 4907001-09-2025 10:15-0500 Body mass index (BMI) [Ratio]23.7 kg/b9UcteqmShaikh Barb VIDES Work Phone: 1(335)32424 [address]01-09-2025 10:15-0500 Body tfcetb31 kgShaikh Barb VIDES Work Phone: 1(378)[address] [place], [place] 6885201-09-2025 10:15-0500 Diastolic blood axxmyjbh47 mm[Hg]Shaikh Barb VIDES Work Phone: 1(787)659-[address] [place], [place] 4907001-09-2025 10:15-0500 Heart rate74 /Jeannine Day MD Work Phone: 1(040)463-[address] [place], [place] 4907001-09-2025 10:15-0500 Respiratory rate18 /Jeannine Day MD Work Phone: 1(834)1-[address] [place], [place] 4907001-09-2025 10:15-0500 SaO2% (BldA) [Mass fraction]97 %Shaikh Barb VIDES Work Phone: 1(903)618-[address] [place], [place] 4907001-09-2025 10:15-0500 Systolic blood mm[Hg]Shaikh Barb VIDES Work Phone: [facility]12-10-2024 09:55-0500 Body yvgogj310.9 Marie Lindseyludmila 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 Work Phone: [facility] HospitalGihodwuoqd48-66-2451 09:55-0500Body mass index (BMI) [Ratio]28.19 kg/m2Lisa Césarteresaz 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 Work Phone: [facility] HospitalBmswtvaqws77-05-3739 09:55-0500Body temperature 97.81 [degF]Cindy Lindseyludmila 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 Work Phone: [facility] HospitalIfrttomxyw50-41-3160 09:55-0500Body uavlro44.68 kgLisa Césarludmila 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 Work Phone: [facility] HospitalByctkbzmxg65-22-9334 09:55-0500Diastolic blood xwnvyfxh86 mm[Hg]Cindy Césarludmila 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 Work Phone: [facility] HospitalYxxmhhwbsx54-76-7860 09:55-0500Heart rate61 /min Cindy Césarteresaz 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 Work Phone: [facility] HospitalOlijohuwsn99-41-1712 09:55-0500Respiratory rate19 /minLisa Dakotaz 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 Work Phone: [facility] HospitalGwiwlshdbb30-48-6767 09:55-8542ZjY4% (BldA) [Mass fraction]98 %Cindy Césarteresaz 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 Work Phone: [facility] HospitalBbykktwreh35-65-8294 09:55-0500Systolic blood tvurcwab209 mm[Hg]Cindy Césarteresaz 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 Work Phone: [facility] HospitalBravyydarq62-78-1218 08:53-0400Body gatzpm878.9 cmChristophjohn paul Zazueta DO Work Phone: noP[facility] SystemsNndmfnebfe15-31-4220 08:53-0400Body mass index (BMI) [Ratio]28.15 kg/g4Uxzaladgcxn Marbin DO Work Phone: noP[facility] SystemsFhxfqcjeid53-09-6949 08:53-0400Body aaters53.59 kgChristopher Zazueta DO Work Phone: [facility] HospitalUirrzokemr83-75-2647 08:53-0400Diastolic blood vzszzjic17 mm[Hg]Nakul Zazueta DO Work Phone: noP[facility] SystemsUpetlhlybh25-92-2320 08:53-0400Systolic blood ixsgmaag144 mm[Hg]Nakul Zazueta DO Work Phone: [facility] HospitalVuyseeqzwt50-92-9996 13:12-0400Body ijlrwc581.9 cmBenanabell Clark DO Work Phone: [facility] HospitalAiohtzrccz23-87-6465 13:12-0400Body mass index (BMI) [Ratio]38.92 kg/y8Ehvgkctianabell Olmdeok DO Work Phone: [facility] HospitalEbknafsztt92-93-1820 13:12-0400Body .44 kgBenanabell Olmedok DO Work Phone: [facility] HospitalTuqyhwckmw22-76-3819 09:58-0400Body bakmtw360.9 Stephisa Heaven 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 Work Phone: [facility] HospitalMehkrutioa73-10-7995 09:58-0400Body mass index (BMI) [Ratio]26.64 kg/m2Lisa Césarholz 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 Work Phone: [facility] HospitalJvykdydzss29-79-2954 09:58-0400Body temperature 98.49 [degF]Cindy Collado 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 Work Phone: [facility] HospitalCemnziawri11-76-1508 09:58-0400Body wwaelc75.96 kgLisa Erickhholz 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 Work Phone: [facility] HospitalSmuzxeijom76-33-2637 09:58-0400Diastolic blood hzpgpjue84 mm[Hg]Cindy Dakotaz 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 Work Phone: [facility] HospitalHyhwtonstp08-18-5842 09:58-0400Heart rate60 /min Cindy Collado 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 Work Phone: [place] [address]Aumbxteepv19-22-3882 09:58-0400Respiratory rate17 /minCindy Lindseyteresabharati 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 Work Phone: [facility] HospitalYnkwggtzpu24-28-0663 09:58-8115GdU6% (BldA) [Mass fraction]100 %Cindy Collado 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 Work Phone: [facility] HospitalGcnvxjojnd95-16-4398 09:58-0400Systolic blood mm[Hg]Cindy Collado 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 Work Phone: [facility] HospitalShrvthadcx70-66-6604 13:01-0400Blood Pressure LocationJENNIFER CORRIE [facility]07-10-2024 13:01-0400Diastolic blood iivxoyhe07 mm[Hg]BERNICE CORRIE [facility]07-10-2024 13:01-0400Heart rate62 /minJENNIFER CORRIE [facility]07-10-2024 13:01-0400Respiratory rate19 /minJENNIFER CORRIE [facility]07-10-2024 13:01-0400Systolic blood bqakiyqn464 mm[Hg]BERNICE CORRIE [facility]06-27-2024 09:52-0400Body loplal845.94 cmMD Shaikh Barb Work Phone: [facility]06-27-2024 09:52-0400 Body mass index (BMI) [Ratio]23.7 kg/m2MD Shaikh Barb Work Phone: [facility]06-27-2024 09:52-0400 Body rulldnnheke12.8 [degF]MD Shaikh Day Work Phone: [facility]06-27-2024 09:52-0400 Body kgMD Kishaajay Work Phone: 1(622)23224 [address]06-27-2024 09:52-0400 Diastolic blood visxhzze31 mm[Hg]MD Shaikh Day Work Phone: 1(179)397-[address] [place], [place] 4907006-27-2024 09:52-0400 Heart rate78 /min Kishaajay Work Phone: 1(738)[address]06-27-2024 09:52-0400 Respiratory rate16 /min Barb Work Phone: 1(579)[address]06-27-2024 09:52-0400 SaO2% (BldA) [Mass fraction]98 %MD Shaikh Day Work Phone: 1(042)765-[address] [place], [place] 4907006-27-2024 09:52-0400 Systolic blood yqetsjxp640 mm[Hg]MD Shaikh Day Work Phone: 1(698)636-[address] [place], [place] 4907006-03-2024 12:39-0400 Blood Pressure LocationAurora Orzech [facility]2024 12:39-0400Body yfvgmmhjvky92.88 [degF]Carmen Orzech [facility]2024 12:39-0400Diastolic blood gdksaujw84 mm[Hg]Carmen Orzech [facility]2024 12:39-0400Heart rate78 /minAurora Orzech [facility]2024 12:39-0400Systolic blood xrefntne105 mm[Hg]Carmen Quintero [facility]05-21-2024 08:53-0400Body nqyjvv472.4 cmMartin Arita MD Work Phone: [facility]05-21-2024 08:53-0400Body mass index (BMI) [Ratio]26.85 kg/w2VhcflshMartin Arita MD Work Phone: [facility]05-21-2024 08:53-0400Body rchicy73.37 kgMartin Arita MD Work Phone: [facility]05-21-2024 08:53-0400Diastolic blood mm[Hg][place] Arita MD Work Phone: [facility]05-21-2024 08:53-0400Heart rate 56 /minMartin Arita MD Work Phone: [facility]05-21-2024 08:53-0400Systolic blood dkzwvxat495 mm[Hg][place] Arita MD Work Phone: [facility]03-30-2024 11:10-0400Body igyezk839.94 cmMD Shaikh Day Work Phone: [facility]03-30-2024 11:10-0400 Body mass index (BMI) [Ratio]23.8 kg/m2MD Shaikh Day Work Phone: [facility]03-30-2024 11:10-0400 Body afyqaeemdvz87.2 [degF]MD Shaikh Day Work Phone: [facility]03-30-2024 11:10-0400 Body brusqp12.15 kgMD Shaikh Day Work Phone: [facility]03-30-2024 11:10-0400 Diastolic blood uybdthuu28 mm[Hg]MD Shaikh Day Work Phone: 1(313)592-[address] [place], [place] 4907003-30-2024 11:10-0400 Heart rate58 /minMD Shaikh Day Work Phone: 1(982)688-[address] [place], [place] 4907003-30-2024 11:10-0400 Respiratory rate16 /minMD Shaikh Day Work Phone: 1(408)350-[address] [place], [place] 4907003-30-2024 11:10-0400 SaO2% (BldA) [Mass fraction]98 %MD Shaikh Day Work Phone: 1(611)[address]03-30-2024 11:10-0400 Systolic blood obtylfzv031 mm[Hg]MD Shaikh Day Work Phone: 1(091)60024 [address]03-28-2024 09:49-0400 Body bbqevv907.94 cm Shaikh Barb Work Phone: 1(919)[address]324 [address]03-28-2024 09:49-0400 Body mass index (BMI) [Ratio]23.8 kg/m2MD Shaikh Day Work Phone: 1(870)21924 [address]03-28-2024 09:49-0400 Body gajdslcholp83.6 [degF]MD Shaikh Day Work Phone: 1(421)274-[address] [place], [place] 4907003-28-2024 09:49-0400 Body pxpzyu22.15 kgMD Shaikh Day Work Phone: 1(007)242-[address] [place], [place] 4907003-28-2024 09:49-0400 Diastolic blood ugbdmnao14 mm[Hg]MD Shaikh Day Work Phone: 1(631)[address]03-28-2024 09:49-0400 Heart rate73 /minMD Shaikh Day Work Phone: 1(601)138-[address] [place], [place] 4907003-28-2024 09:49-0400 SaO2% (BldA) [Mass fraction]97 %MD Shaikh Day Work Phone: 1(993)[address]03-28-2024 09:49-0400 Systolic blood wpvawwtn254 mm[Hg]MD Shaikh Day Work Phone: 1(522)[address]03-02-2024 15:15-0500 Body ooctbikmagy41 [degF]MD Shaikh Day Work Phone: 1(628)[address]03-02-2024 15:15-0500 Diastolic blood jmdezskn92 mm[Hg]MD Shaikh Day Work Phone: 1(893)[address]03-02-2024 15:15-0500 Heart rate76 /minMD Shaikh Day Work Phone: 1(063)[address]03-02-2024 15:15-0500 Respiratory rate17 /minMD Shaikh Day Work Phone: 1(004)600-[address] [place], [place] 4907003-02-2024 15:15-0500 SaO2% (BldA) [Mass fraction]95 %MD Shaikh Day Work Phone: 1(255)[address]03-02-2024 15:15-0500 Systolic blood ijjwpske619 mm[Hg]MD Shaikh Day Work Phone: 1(292)[address]03-02-2024 04:48-0500 Body ynabng65.9 kg Shaikh Barb Work Phone: 1(435)[address]03-01-2024 13:07-0500 Body .94 cm Shaikh Barb Work Phone: 1(842)[address]03-01-2024 11:49-0500 Inhaled oxygen flow rate8 L/minMD Shaikh Day Work Phone: 1(094)[address]03-01-2024 10:02-0500 Body mass index (BMI) [Ratio]25.9 kg/m2MD Shaikh Kishaajay Work Phone: 1(383)[address]02-27-2024 09:48-0500 Body .94 cmMD Shaikh Kishaajay Work Phone: 1(742)784-[address] [place], [place] 4907002-27-2024 09:48-0500 Body mass index (BMI) [Ratio]29 kg/m2MD Shaikh Leandrojustin Work Phone: 1(324)[address]02-27-2024 09:48-0500 Body trbpikbxjte26.6 [degF]MD Shaikh Day Work Phone: 1(216)[address]02-27-2024 09:48-0500 Body yuahbk21.85 kgMD Shaikh Barb Work Phone: 1(844)[address]02-27-2024 09:48-0500 Diastolic blood pudoqbwk91 mm[Hg]MD Shaikh Day Work Phone: 1(915)[address]02-27-2024 09:48-0500 Heart rate76 /minMD Shaikh Beardajay Work Phone: 1(970)[address]02-27-2024 09:48-0500 Respiratory rate16 /minMD Shaikh Day Work Phone: 1(100)[address]02-27-2024 09:48-0500 SaO2% (BldA) [Mass fraction]98 %MD Shaikh Day Work Phone: 1(428)074-[address] [place], [place] 4907002-27-2024 09:48-0500 Systolic blood jwfbkjze489 mm[Hg]MD Shaikh Day Work Phone: 1(688)[address]02-07-2024 12:52-0500 Body sjsfap347.4 cmDuncan Haddad MD Work Phone: [facility]02-07-2024 12:52-0500Body mass index (BMI) [Ratio]26.95 kg/v4QodzdguqbDuncan Haddad MD Work Phone: [facility]02-07-2024 12:52-0500Body ueckat32.6 kgDuncan Haddad MD Work Phone: 1(882)888-[facility]02-07-2024 12:52-0500Diastolic blood yqmtubeu65 mm[Hg]Duncan Haddad MD Work Phone: 1(530)[address]02-07-2024 12:52-0500Heart rate 67 /minDuncan Haddad MD Work Phone: [facility]02-07-2024 12:52-0500Systolic blood pskeukgs654 mm[Hg]Duncan Haddad MD Work Phone: 1(077)237-[address] [place], [place] 8811301-25-2024 10:48-0500Blood Pressure LocationAurora Orzech [facility]01-25-2024 10:48-0500Diastolic blood mm[Hg]Carmen Orzech [facility]01-25-2024 10:48-0500Heart rate80 /minAurora Orzech [facility]01-25-2024 10:48-0500Systolic blood ohsjkbie224 mm[Hg]Carmen Orzech [facility] [place] 216691-15-2023 12:10-0500Diastolic blood mm[Hg]MD Shaikh Day Work Phone: [facility]11-15-2023 12:10-0500 Systolic blood mm[Hg]MD Shaikh Day Work Phone: [facility]09-05-2023 14:10-0400 Body kxjatj302.94 Rochelle Temple Other [employer] Other 09-05-2023 14:10-0400Body mass index (BMI) [Ratio] 26.53 kg/y3NnshqqKori Temple Other [employer] Other 09-05-2023 14:10-0400Body xvpazpkmrcb33.1 [degF]Kori Temple Other [employer] Other 09-05-2023 14:10-0400Body mobhlt75.69 kgKori Temple Other [employer] Other 09-05-2023 14:10-0400Diastolic blood juifxedh80 mm[Hg] Kori Temple Other [employer] Other 09-05-2023 14:10-0400Respiratory rate18 /minKori Temple Other [facility] Other 09-05-2023 14:10-8704FjC7% (BldA) [Mass fraction]98 % Kori Temple Other [facility] Other 09-05-2023 14:10-0400Systolic blood liplzpxx811 mm[Hg] Kori Temple Other [facility] Other 02-22-2023 09:30-0500Body .94 cmDenver Juarez Other [facility] Other 02-22-2023 09:30-0500Body mass index (BMI) [Ratio] 28.72 kg/v5BkumjgvDenver Juarez Other [facility] Other 02-22-2023 09:30-0500Body iafotanbbio25.8 [degF] Denver Juarez Other [facility] Other 02-22-2023 09:30-0500Body dbpagu73.95 kgManataly Juarez Other [facility] Other 02-22-2023 09:30-0500Diastolic blood mm[Hg] Denver Juarez Other [facility] Other 02-22-2023 09:30-4905HpI5% (BldA) [Mass fraction]98 % Denver Juarez Other [facility] Other 02-22-2023 09:30-0500Systolic blood mrgluglx031 mm[Hg] Denver Juarez Other [facility] Other 10-12-2022 12:12-0400Body hsckdocycjl74.9 [degF]MD Shaikh Day Work Phone: [facility]10-12-2022 12:12-0400 Diastolic blood iiacbvoz20 mm[Hg]MD Shaikh Day Work Phone: [facility]10-12-2022 12:12-0400 Heart rate95 /minMD Shaikh Day Work Phone: [facility]10-12-2022 12:12-0400 Respiratory rate16 /minMD Shaikh Day Work Phone: 1(727)034-[address] [place], [place] 4907010-12-2022 12:12-0400 SaO2% (BldA) [Mass fraction]98 %MD Shaikh Day Work Phone: 1(261)52224 [address]10-12-2022 12:12-0400 Systolic blood wzswsuhe829 mm[Hg]MD Shaikh Day Work Phone: 1419)[address]10-12-2022 04:04-0400 Body xpunhq32.6 kgMD Kam Kishaajay Work Phone: 1419)[address] [place], [place] 6885210-11-2022 17:12-0400 Body .48 cmMD Kam Kishaajay Work Phone: 1(165)[address] [place], [place] 6885210-11-2022 13:57-0400 Diastolic blood tuputtrw97 mm[Hg]MD Shaikh Day Work Phone: 1(168)[address] [place], [place] 6885210-11-2022 13:57-0400 Heart rate77 /minMD Kam Kishaajay Work Phone: 1(080)[address]10-11-2022 13:57-0400 Respiratory rate16 /min Shaikh Leandrojustin Work Phone: 1(819)[address]10-11-2022 13:57-0400 SaO2% (BldA) [Mass fraction]95 %MD Shaikh Day Work Phone: 1(800)[address]10-11-2022 13:57-0400 Systolic blood tleujgff315 mm[Hg]MD Shaikh Day Work Phone: 1(466)[address]10-11-2022 11:24-0400 Body tubcpkcutmh39.9 [degF]MD Shaikh Day Work Phone: 1(101)[address]10-11-2022 03:56-0400 Body .48 cmMD Shaikh Day Work Phone: [facility]10-11-2022 03:56-0400 Body wdqlif90.9 kgMD Shaikh Day Work Phone: [facility]08-17-2022 10:15-0400 Body dnnaut688.94 cmManataly Juarez Other [facility] Other 08-17-2022 10:15-0400Body mass index (BMI) [Ratio]35.9 kg/y8IfeynlrDenver Juarez Other [facility] Other 08-17-2022 10:15-0400Body .2 [degF] [place] [facility] 08-17-2022 10:15-0400Body .18 kgManataly Juarez Other [facility] Other 08-17-2022 10:15-0400Diastolic blood qweswshe84 mm[Hg] [place] [facility] 08-17-2022 10:15-4404NrS3% (BldA) [Mass fraction]97 % Denver Juarez Other [facility] Other 08-17-2022 10:15-0400Systolic blood mm[Hg] [place] Juarez Other [facility] Other 08-12-2022 14:15-0400Body wtzvec482.94 Melinda Das Other [facility] Other 08-12-2022 14:15-0400Body mass index (BMI) [Ratio]35.9 kg/t3Fgsrn Das Other [facility] Other 08-12-2022 14:15-0400Body gpbutiqxtbu95.2 [degF]Ilda Das Other [facility] Other 08-12-2022 14:15-0400Body njlzhe92.18 kgPeggy Dsa Other [facility] Other 08-12-2022 14:15-0400Respiratory rate18 /minPeggy Das Other [facility] Other 08-12-2022 14:15-1900JjE7% (BldA) [Mass fraction]98 % Ilda Das Other [facility] Other 08-10-2022 17:00-0400Body gonyli066.94 [facility] Other [employer] Other 08-10-2022 17:00-0400Body mass index (BMI) [Ratio]35.9 kg/j7Wnixfvochristnia Arrington Other [facility] Other 08-10-2022 17:00-0400Body yztxnw05.18 kgCochristina Arrington Other [facility] Other 03-23-2022 11:45-0400Body werzqx656.94 [facility] Other [facility] Other 03-23-2022 11:45-0400Body mass index (BMI) [Ratio]35.9 kg/u4Fyfxzlf Murphy Other [place] [facility] Other 03-23-2022 11:45-0400Body lmgrue49.18 kgSusie Arrington Other [facility] Other 01-20-2022 10:00-0500Body wixooa096.94 cmManataly Juarez Other [facility] Other 01-20-2022 10:00-0500Body mass index (BMI) [Ratio] 36.27 kg/y9OpvnpcyDenver Juarez Other [employer] Other 01-20-2022 10:00-0500Body soldmaybszq17.5 [degF] [place] [facility] 01-20-2022 10:00-0500Body cstkir40.09 kgMattbarbara Juarez Other [facility] Other 01-20-2022 10:00-0500Diastolic blood sfdkajim87 mm[Hg] [place] Juarez Other [facility] Other 01-20-2022 10:00-1743KkR6% (BldA) [Mass fraction]99 % Denver Juarez Other [facility] Other 01-20-2022 10:00-0500Systolic blood rtovhuda386 mm[Hg] [place] Juarez Other [facility] Medical Other 10-21-2021 10:00-0400Body .94 cmManataly Juarez Other [facility] Other 10-21-2021 10:00-0400Body mass index (BMI) [Ratio] 36.27 kg/i8Stmfzvttye Juarez Other [facility] Other 10-21-2021 10:00-0400Body gzrykg93.09 kgMattmarylouw Larry Other [facility] Other 10-21-2021 10:00-0400Diastolic blood glvemlfh69 mm[Hg] [place] Larry Other [facility] Other 10-21-2021 10:00-0400Systolic blood mm[Hg] [place] Juarez Other [facility] Other 09-30-2021 10:30-0400Body uugwmo940.94 cmMattbarbara Juarez Other [facility] Other 09-30-2021 10:30-0400Body mass index (BMI) [Ratio]35.9 kg/k6Wnqpixftye Juarez Other [facility] Other 09-30-2021 10:30-0400Body fcaaeq79.18 kgMattmaryloutye Juarez Other [facility] Other 09-30-2021 10:30-0400Diastolic blood bcffgugj08 mm[Hg] [place] Juarez Other [facility] Other 09-30-2021 10:30-0400Systolic blood kyudxitt311 mm[Hg] [place] Juarez Other [facility] Other Encounters Encounter DateEncounter TypeCare ProviderFacilityStart: 51-97-6915bbqgaphndzIvcp J AichholzFacility:[facility]art: 12-03-2024 End: 01-87-7866vqcrzavusoKihy J Aichholz 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-C Work Phone: [phone]-Fmoqdaavr Health NeurologyStart: 12-03-2024 End: 06-97-9892Ucshzmc encounter procedureSsara Mcleod APRN-FNP-C-[facility] Work Phone: Start: 11-26-2024 End: 08-10-3705rhasiijabsSpot J Aichholz 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-C Work Phone: [facility] Work Phone: Start: 11-26-2024 End: 16-38-6353Oxaltcz encounter procedureCindy Collado 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-C-[facility] Work Phone: Start: 02-30-2912Ihnawgajpf RecurringLisa Orlando Collado OE-L-Lfckptlyu Road TherapyStart: 11-17-2024 End: 75-03-6274kfmzrgqolpRtzuqr X OrzechFacility:[facility] CENTERtart: 11-17-2024 End: 06-89-6467Jcbyzgh encounter procedureAurora X Orzech [facility] Start: 80-51-8118Airqfaq encounter procedureLisa Heaven 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-C Work Phone: [facility]tart: 10-08-2024 End: 49-93-5118rlisalqmtfDvaddf X OrzechFacility:EU [place]kyStart: 10-08-2024 End: 70-45-0825Zfkklej encounter procedureAurora X Orzech [facility] Start: 09-29-2024 End: 69-26-5687NhppezWxvq Aichholz 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 Work Phone: NOVH CWM FMComment on above:Migraine with aura and without status migrainosus, not intractableAnxiety and depressionStart: 09-28-2024 End: 96-21-0224MoboliZpoc Aichholz 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 Work Phone: NOMS CWM FMStart: 09-22-2024 End: 34-73-8303GlxjgjSauh Aichholz 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 Work Phone: NOHA CWM FMComment on above:Psychophysiological insomniaStart: 92-43-2175faymbuoyuzFekclzv R WATERSFacility:EU BellevueStart: 09-15-2024 End: 19-97-0056rvwvmqsrsoDamehan R WATERSFacility:FTMCStart: 09-15-2024 End: 23-02-6065Vjtsqyv encounter procedureAlexandr OVALLE [facility] Loki Start: 09-03-2024 End: 35-49-6685lqfkopsfxhRotusyr R WATERSFacility:FTMCStart: 08-21-2024 End: 78-89-6643Pbmohglol Result EncounterGeneric External Data ProviderNOMS External Department UnsolicitedStart: 08-21-2024 End: 02-30-3899Hauefrran Result EncounterGeneric External Data ProviderNOMS External Department UnsolicitedStart: 08-18-2024 End: 06-56-3570zyronnvcofMkvteyw R WATERSFacility:FTMCStart: 08-18-2024 End: 16-11-2810Rfaugjz encounter procedureAlexandr OVALLE [facility] Start: 08-17-2024 End: 46-21-0865GnrxcvKckl Aichholz 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 Work Phone: NOQD CWM FMComment on above:Peripheral vascular disease, unspecified (Primary Dx); Atherosclerosis of coronary artery of [place] heart, unspecified vessel or lesion type, unspecified whether angina present ; Stenosis of carotid artery, unspecified lateralityStart: 08-13-2024 End: 36-15-0212czvmtametnDsgt J Aichholz Work Phone: [facility] Work Phone: Start: 08-13-2024 End: 56-44-4151Lvunyus encounter [facility]alsara Mcleod UQAF-CXC-[facility] Work Phone: Start: 08-12-2024 End: 12-63-0608TvshubRbba Aichholz 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 Work Phone: noms CWM FMComment on above:Primary hypertension ; Anxiety and depression ; Psychophysiological insomnia; Atherosclerosis of coronary artery of [place] heart, unspecified vessel or lesion type, unspecified whether angina present ; Stenosis of right carotid artery; Cerebrovascular accident (CVA), unspecified mechanism (HCC); Migraine with aura and without status migrainosus, not intractableMuscle spasm (Primary Dx)Start: 08-11-2024 End: 75-03-5465Cbnrsf Elijah Collado 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 Work Phone: noms CW FMStart: 08-11-2024 End: 50-99-1874Unreix Elijah Collado 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 Work Phone: noms CW FMStart: 08-11-2024 End: 06-42-2344Cdlbzoanv Result EncounterGeneric External Data ProviderNOMS External Department UnsolicitedStart: 08-11-2024 End: 70-60-0033bvvbqsatsiLUIF AICHHOLZNot AvailableStart: 08-11-2024 End: 64-24-3127Xxabcv outpatient visit 25 minutesCindy Collado 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 Work Phone: noms CWM FMComment on above:Primary hypertension (Primary Dx); Atherosclerosis of coronary artery of [place] heart, unspecified vessel or lesion type, unspecified whether angina present ; CRYSTAL (generalized anxiety disorder) ; Recurrent major depressive disorder, in full remission ; Episode of recurrent major depressive disorder, unspecified depression episode severity ; Overflow incontinence of urine; Psychophysiological insomniaStart: 08-05-2024 End: 68-16-2177gifwefanafUHCPKGSI E PERRYFacility:EU [place]kyStart: 08-05-2024 End: 18-54-5795Tojqfop encounter procedureJENNIFER E CORRIE [facility] Start: 07-22-2024 End: 95-25-5683rcqrimrwhwASKNCR [facility] Start: 07-16-2024 End: 16-03-9846zfrqeqkctzUTNSEOZN E PERRYFacility:EU [place]vueStart: 07-16-2024 End: 74-70-0684Xndvjqj encounter procedureJENNIFER E CORRIE [facility] start: 07-01-2024 End: 49-30-4937FhjubjZmlm Heaven FLORES Work Phone: noms CW FMComment on above:Chronic UTI (Primary Dx); Anxiety and depression (CMS/HCC); Overflow incontinence of urineStart: 06-30-2024 End: 68-42-9845Wdu Drop offPatrick R OVALLE [facility] Start: 06-30-2024 End: 01-09-5803eqkhwqgmsaUhshcsk R WATERSFacility:FTMCStart: 06-30-2024 End: 82-68-5787Txooqdk encounter procedureJENNIFER E CORRIE [facility] Comment on above:Primary progressive aphasia (CMS/HCC) (Primary Dx); Ataxia; Memory difficulty; History of ischemic stroke; Other insomnia; DULCE MARIA (obstructive sleep apnea); Severe episode of recurrent major depressive disorder, without psychotic features (HCC) (CMS/HCC); Severe anxietyStart: 06-30-2024 End: 40-15-8466nbkvpmkinaEQDV ROMEROot AvailableStart: 06-24-2024 End: 99-18-2156Pasuztzbr Result EncounterSsara Mcleod 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 Work Phone: NOMS External Department UnsolicitedStart: 06-24-2024 End: 21-34-1622Wjkqinfls Result EncounterSsara Mcleod 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 Work Phone: NOMS External Department UnsolicitedStart: 06-15-2024 End: 91-60-4185Ictfegdavian Hare PhD Work Phone: ANA SANDUSKYStart: 06-15-2024 End: 92-27-0237Kvskuldavian Hare PhD Work Phone: ANA SANDUSKYStart: 06-15-2024 End: 50-63-6511lpcogtmeahJNUCPOXR E PERRYFacility:EU [place]kyStart: 06-15-2024 End: 73-04-1767Jigqiha encounter Mylene Hare PhD Work Phone: ANA SANDUSKYComment on above:Expressive aphasia (Primary Dx); Memory difficulty; History of ischemic stroke; Staring episodes; Other insomnia; Stress due to family tensionStart: 2024 End: 64-12-9120Firuer svetlanaheetCindy Collado 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 Work Phone: NOMS CWM FMStart: 2024 End: 93-46-0394Qnghqb flowsheetCindy Collado 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 Work Phone: NOMS CWM FMStart: 2024 End: 93-04-6287Dwlzwe outpatient visit 10 minutesLisa Collado 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 Work Phone: NOMS CWM FMComment on above:Acute diffuse otitis externa of both ears (Primary Dx)Start: 2024 End: 71-92-3218yxexbccfflCADH AICHHOLZNot AvailableStart: 06-01-2024 End: 22-13-7188Dtylyy Franco Mcleod 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 Work Phone: aNA BELLEVUEStart: 06-01-2024 End: 81-62-9122Twgmtm Franco Mcleod 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 Work Phone: aNA BELLEVUEStart: 06-01-2024 End: 41-97-9073Mnqhsd outpatient visit 40 minutesJameson Mcleod 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 Work Phone: aNA BELLEVUEComment on above:Ataxia (Primary Dx); Gait instability; Expressive aphasia; Memory difficulty; History of ischemic strokeStart: 06-01-2024 End: 38-93-6650bsmyhhcugnVZPTS HARSHANot AvailableStart: 05-29-2024 End: 38-21-8870QksplwZfzi Aichholz 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 Work Phone: NOMS CWM FMComment on above:Dizziness and giddiness (Primary Dx)Start: 05-12-2024 End: 87-73-9102Wurbvw flowsheetSuziesa Aichholz 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 Work Phone: NOMS CWM FMStart: 05-12-2024 End: 97-56-8959Iemkxm flowsheetLisa Aichholz 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 Work Phone: NOMS CWM FMStart: 05-12-2024 End: 56-94-5021Yhrwphcnv Result EncounterLisa Aichholz 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 Work Phone: NOAU External Department UnsolicitedStart: 05-12-2024 End: 83-85-7810wcayfrzclmGCTD AICHHOLZNot AvailableStart: 05-12-2024 End: 41-49-2132Olzzaa outpatient visit 25 minutesLisa Erickhholz 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 Work Phone: NOMS CWM FMComment on above:Primary hypertension (CMS/HCC) (Primary Dx); Cerebrovascular accident (CVA), unspecified mechanism (CMS/HCC); Dizziness and giddiness; Overflow incontinence of urine; CRYSTAL (generalized anxiety disorder) (CMS/HCC); Impaired mobility and activities of daily livingStart: 05-05-2024 End: 94-85-1875miamgamydjHKYPFHFK E PERRYFacility:FTMCStart: 05-05-2024 End: 37-73-1890Urr Drop offJENNIFER E CORRIE [facility] Start: 05-05-2024 End: 61-21-7737fkndyahyatWILZFIYS E PERRYFacility:EU [place]kyStart: 04-14-2024 End: 60-52-2873fzwmpgmocgMjlvnx TannaFacility:EU [place]vueStart: 04-14-2024 End: 14-09-8819Ibvojae encounter procedureLauren Monserrat [facility] start: 04-01-2024 End: 40-50-5931Ffn Drop offPatrick R OVALLE [facility] Start: 04-01-2024 End: 66-97-4184jjidgsgguyJjdbcdo R WATERSFacility:FTMCStart: 04-01-2024 End: 15-85-9785Dyxccta encounter procedureJENNIFER E CORRIE [facility] Start: 04-01-2024 End: 99-42-7860knvuxpygdrFW-C BERNICE E PERRYFacility:EU [place]kyStart: 04-01-2024 End: 45-42-9615Ouuhmyg encounter procedureJENNIFER E CORRIE [facility] Jessamine Start: 02-26-2024 End: 64-35-6250RnwqqxMarlo Collado NP Work Phone: noms CWM FMComment on above:Cerebrovascular accident (CVA), unspecified mechanism (CMS/HCC) (Primary Dx); Dysarthria; White matter disease; Stenosis of carotid artery, unspecified laterality; Peripheral vascular disease, unspecified (CMS/HCC); Overflow incontinence of urine; Dizziness and giddinessStart: 02-20-2024 End: 52-31-9507Evy Drop offJENNIFER E CORRIE [facility] Start: 02-20-2024 End: 13-30-1474zgfxnexklsMKZUEKJG E PERRYFacility:FTMCStart: 02-20-2024 End: 66-10-5115Zclmqao encounter procedureJENNIFER E CORRIE [facility] Start: 02-20-2024 End: 70-77-3739Saopolk encounter procedureSrudy Day MD Work Phone: [facility] Work Phone: Start: 02-20-2024 End: 66-94-1067nkxrvmrwplWjnpas Fawwad MD Work Phone: [facility] Work Phone: Start: 01-29-2024 End: 79-51-6538dsthuupngzXOOD J AICHHOLZFacility:EU [place]kyStart: 01-29-2024 End: 21-37-8943Hwdexov encounter procedureJENNIFER E CORRIE [facility] Start: 01-23-2024 End: 16-86-0059ArilvwMwey Aichholz NP Work Phone: noms CWM FMComment on above:Chronic UTI (Primary Dx) Start: 01-21-2024 End: 73-21-5765Gepbbb flowsJoe Collado 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 Work Phone: noms CWM FMStart: 01-21-2024 End: 06-46-1268Ehoblu flowsJoe Collado 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 Work Phone: noms CWM FMStart: 01-21-2024 End: 00-51-4527Mrprxsmb Result EncounterCindy Collado 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 Work Phone: noms External Department UnsolicitedStart: 01-21-2024 End: 83-21-0513vbzpoixubsCEAG AICHHOLREBECCAot AvailableStart: 01-21-2024 End: 65-58-4847Szrrrj outpatient visit 40 minutesCindy Collado 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 Work Phone: noms CWM FMComment on above:Primary hypertension (CMS/HCC) (Primary Dx); Heart failure, unspecified (CMS/HCC); Peripheral vascular disease, unspecified (CMS/HCC); Atherosclerosis of coronary artery of [place] heart, unspecified vessel or lesion type, unspecified [...] incontinence of urine; Chronic UTIStart: 12-12-2023 End: 17-18-2927bxctytbdviSF Shaikh Leandrojustin Work Phone: [facility] Work Phone: Start: 12-12-2023 End: 12-59-2434Zliydhh encounter procedureMD Shaikh Rodriguescolton Work Phone: [facility]-XRay [facility] Work Phone: Start: 12-09-2023 End: 34-48-0785Bgxypb outpatient new 60 minutesChristopher Marbin DO Work Phone: NOMS ST NEUROLOGYComment on above:Ataxia (Primary Dx); History of ischemic strokeStart: 12-09-2023 End: 59-20-1131cmuduvehrrBQELYBCEIVJ HASSETTNot AvailableStart: 12-02-2023 End: 50-69-2683Arvgsx flowsheetBenjamin W Murcek DO Work Phone: noms ENT SANDUSKYStart: 12-02-2023 End: 54-12-4173Knqnad flowsheetBenjamin W Murcek DO Work Phone: noms ENT SANDUSKYStart: 12-02-2023 End: 97-78-8631Mzthso outpatient new 45 minutesBenjamin W Murcek DO Work Phone: noms ENT SANDUSKYComment on above:Oropharyngeal dysphagia (Primary Dx)Start: 12-02-2023 End: 11-90-7209KzluyfRrlf Aichholz 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 Work Phone: NOMS CWM FMComment on above:Anxiety and depression (CMS/HCC)Start: 11-19-2023 End: 85-10-2358BjczdlAeoh Aichholz 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 Work Phone: NOMS CWM FMComment on above:Urinary tract infection symptoms (Primary Dx)Start: 11-16-2023 End: 15-04-4090Wmaepkmxr Result EncounterLisa Aichholz 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 Work Phone: NOAE External Department UnsolicitedStart: 11-16-2023 End: 55-40-8899Bfaowvojz Result EncounterLisa Aichholz 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 Work Phone: NOPD External Department UnsolicitedStart: 10-30-2023 End: 85-31-9967NflgfvUnum Aichholz 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 Work Phone: NOMS CWM FMComment on above:Acute cystitis without hematuria (Primary Dx)Urinary tract infection symptoms (Primary Dx)Start: 10-26-2023 End: 27-63-8758Phespxlpo Result EncounterLisa Césarholz 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 Work Phone: noms External Department UnsolicitedStart: 10-26-2023 End: 64-75-8012Vgqlrousv Result EncounterLisa Aichholz 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 Work Phone: noms External Department UnsolicitedStart: 10-22-2023 End: 06-58-6607Xtikkr flowsheetLisa Aichholz 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 Work Phone: noms CWM FMStart: 10-22-2023 End: 89-34-8885Wmebdb flowsheetLisa Aichholz 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 Work Phone: NOEU CWM FMStart: 10-22-2023 End: 33-68-3649Liiwqw outpatient visit 25 minutesLisa Erickhholz 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 Work Phone: noms CWM FMComment on above:Oropharyngeal dysphagia (Primary Dx); Dysarthria; Cerebrovascular accident (CVA), unspecified mechanism (CMS/HCC); Atherosclerosis of coronary artery of [place] heart, unspecified vessel or lesion type, unspecified whether angina present (CMS/HCC); Primary hypertension (CMS/HCC); Stenosis of right carotid artery; Mixed hyperlipidemia (CMS/HCC); Dizziness and giddiness; Impaired mobility and activities of daily living; Migraine with aura and without status migrainosus, not intractable (CMS/HCC); Muscle spasm; Anxiety and depression (CMS/HCC); Iron deficiency; Psychophysiological insomniaStart: 10-22-2023 End: 26-59-7922xtdqbdohtoQLQT AICHHOLZNot AvailableStart: 10-09-2023 End: 46-53-2237Zvdspw OnlyLisa Césarholz 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 Work Phone: noms CWM FMComment on above:Cerebrovascular accident (CVA), unspecified mechanism (CMS/HCC) (Primary Dx); Oropharyngeal dysphagia; DysarthriaStart: 09-11-2023 End: 30-19-7390gfniefgvceILOUFG [facility] Start: 09-09-2023 End: 71-99-2468unqxxqrnbxNUNWIW FAWWADNot AvailableStart: 08-26-2023 End: 16-09-4272Ynlysbpan Result EncounterSrudy Day MD Work Phone: noms External Department UnsolicitedStart: 08-26-2023 End: 42-41-5045Tvsxmkscc Result EncounterSrudy Day MD Work Phone: noms External Department UnsolicitedStart: 08-21-2023 End: 53-40-9645hmfrwumrqmFY-C BERNICE CLEMENTEFacility:EU [place]kyStart: 08-21-2023 End: 21-53-0396Pzilwhi encounter procedureBERNICE CLEMENTE [facility] Loki Start: 08-21-2023 End: 25-96-6110khkggfululEOFMDV FAWWAMITCHot AvailableStart: 08-08-2023 End: 77-68-0999rzczxcazyuVY Barb Work Phone: [facility] Work Phone: Start: 08-08-2023 End: 29-16-8166Sojkiub encounter procedureMD Barb Work Phone: [facility] Work Phone: Start: 07-15-2023 End: 45-03-2629prjdjcwemnRbeisp X OrzechFacility:FTMCStart: 07-15-2023 End: 73-80-0714Ief Drop offAurora X Orzech [facility] Start: 07-15-2023 End: 67-25-0479ilsncspmrzCwbruj X OrzechFacility:EU [place]kyStart: 07-15-2023 End: 19-49-1837Ajunsvc encounter procedureAurora Jag Quintero [facility] Loki Start: 07-05-2023 End: 29-85-6456Kygbynzdp encounterClairaretha Bowling CMAProMedica Physicians NeurologyComment on above:office notesStart: 07-02-2023 End: 11-67-9513eowyycgunzIIJGXCD RASHIDWVUMedicine [facility] Ambulatory PPGStart: 07-02-2023 End: 95-51-0918Xysftx outpatient visit 25 minutesMartin Arita MD Work Phone: [facility] NeurologyComment on above: Functional gait disorder (Primary Dx); DizzinessStart: 06-05-2023 End: 04-66-6489Drabotmyg encounterLamelanie GregoryProMedica Physicians Neurology Start: 49-53-6099Vlqxmlr encounter procedureLisa Heaven FLORES Work Phone: [facility] HealthcareStart: 05-12-2023 End: 09-56-6110tnfjenuugpFpaiye DymondFacility:[facility] Start: 05-12-2023 End: 11-28-3342daluqtvmohXZ-C Hannah Still Work Phone: [facility] Work Phone: Start: 05-12-2023 End: 92-53-9278Morejbt encounter procedureNP-C Hannah Still Work Phone: [facility] Work Phone: Start: 05-11-2023 End: 98-45-9798krwnjzdbjyST Shaikh Fawwad Work Phone: [facility] Work Phone: Start: 05-11-2023 End: 76-21-5323Yuoxbvr encounter procedureMD Shaikh Day Work Phone: [facility] Work Phone: Start: 05-09-2023 End: 63-14-6930vfmsmyaqrjDB Shaikh Fawwad Work Phone: [facility] Work Phone: Start: 05-09-2023 End: 53-45-2201Hoydisu encounter procedureMD Shaikh Day Work Phone: [facility] Work Phone: Start: 97-57-5003Iln-patient / Non-visitMD Shaikh Day Work Phone: [facility] Work Phone: Start: 04-12-2023 End: 61-93-7112Fnbcaxhpqu and management of inpatientMD Shaikh Barb Work Phone: [facility] Work Phone: Start: 91-83-6732Dsamzsrkh encounterLinalfreda Jay Physicians NeurologyComment on above:Sooner ApptStart: 04-09-2023 End: 93-17-9762Ezfpsgk encounter procedureMD Shaikh Day Work Phone: [facility] Work Phone: Start: 01-19-1603Tnmvdb Yulisa Day MD Work Phone: NOWY CWM IMComment on above:Anxiety and depression (CMS/HCC) (Primary Dx)NEW PATIENT REFERRALStart: 03-20-2023 End: 19-36-3708zvhqrngqayUAWDHXPOS A [facility] PPG Start: 03-20-2023 End: 57-96-1455Hpdskk outpatient new 45 minutesMosarita Haddad MD Work Phone: [facility] NeurologyComment on above:Dizzy (Primary Dx); 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 (CMS-HCC); DizzinessStart: 03-07-2023 End: 97-67-1981whezmezhdyBSWCBR FAWWADFacility:EU [place]kyStart: 03-07-2023 End: 98-72-8726Hihqpxy encounter procedureAurora X Orzech [facility] Start: 29-51-2790ntensazdjjYZHZProHealth [facility] Ambulatory PPGStart: 03-04-2023 End: 14-45-8395Jpeqibgfm encounterPaandrew Mendoza Physicians Neurology Comment on above:AppointmentStart: 69-18-8818rgjtafvhhpXQVNProHealth [facility] Ambulatory PPGStart: 03-01-2023 End: 05-51-2082Zofhgqzny Result EncounterGeneric External Data ProviderNOMS External Department UnsolicitedStart: 03-01-2023 End: 24-82-2283Edaynlfwt Result EncounterGeneric External Data ProviderNOMS External Department UnsolicitedStart: 03-01-2023 End: 57-09-5706Juxncewva department patient visitGreat [facility] Ambulatory PPGStart: 12-61-4411tuggpvkerrVHTIJA FAWWADFacility:EU NorwalkStart: 79-74-8791sfqmnqvnlzITFZProHealth W[facility] Ambulatory PPGStart: 16-70-8287Atkvalvpe encounterSandra ClarkeMedica Physicians Neurology Comment on above:paperworkStart: 01-21-2023 End: 36-60-8775duezyezmqwUHBairon Day Work Phone: [facility] Work Phone: Start: 01-21-2023 End: 61-16-7149Hsufdagyzn RecurringMD Shaikh Beardwwacolton Work Phone: [facility]-Physical Therapy [address]Start: 10-16-2022 End: 46-58-2472nqdrgpbsfkYmlghh Bailey Other [place] [facility] Other Start: 62-64-4852Qqydjl outpatient visit 15 minutes Kori WindyFPG Urgent Care ClydeStart: 04-04-2022 End: 46-76-5492tqdyzpyhawCuebngc Langenberg Other [facility] Other Start: 64-36-0711Rhztin outpatient visit 15 minutes Denver MillernorahFPG Vascular SurgeryStart: 03-06-2022 End: 44-15-2940zennfvqlhmEylul Keller Other [place] [facility] Other Start: 16-95-6126Urikdbbni encounterEarline HarrisFPUte Urgent Care [facility] Hospitaltart: 03-02-2022 End: 15-10-1516fbxauwlsgkXS Gerry Chaudharysrini Work Phone: [facility] Work Phone: Start: 03-02-2022 End: 74-34-4336Xkrenian Referred Gerry Shafergene Work Phone: [facility]-Lab [address] [place] Work Phone: Start: 02-21-2022 End: 43-25-6144hmlfaapqxbVPRFRFA BOESFacility:Y2Aiuxt: 02-20-2022 End: 03-25-8495sgkaqonbppZHBKVX H FAWWADFacility:C0Axztc: 01-31-2022 End: 97-58-3814dqgbkrskylLOOOLP H FAWWADFacility:M5Waweg: 01-22-2022 End: 46-22-8882umjkyiphcuKQHPJW H FAWWADFacility:N2Jpaib: 01-18-2022 End: 39-84-9227suamyaiszlMFIOODW TUCKERFacility:P8Yeptx: 01-09-2022 End: 54-83-2905kzysexlhufJA Shaikh Barb Work Phone: [facility] Work Phone: Start: 01-09-2022 End: 54-45-9231Odqpvvmbyg RecurringMD Shaikh Day Work Phone: [facility]-Speech Therapy [address]Start: 01-02-2022 End: 85-13-6272zvxvfahkyiYAAHBH H FAWWADFacility:R6Ruack: 12-07-2021 End: 40-52-7567dcvzsqsopdANAGTG H FAWWADFacility:E3Yenjx: 11-27-2021 End: 22-65-5459wfycsgnsnpVRXAPL H FAWWADFacility:M3Augnn: 11-26-2021 End: 05-79-7482dwdvoyptrvDLJVZG H FAWWADFacility:V0Slinj: 11-24-2021 End: 80-43-6263Fluyaosde department patient [facility] Facility:[id number]: 11-21-2021 End: 61-56-9008Rjhtutekkl and management of inpatientMD Shaikh Barb Work Phone: [facility] [place] [facility] SurgStart: 86-54-1478Cfqvgjtacb RecurringMD Shaikh Day Work Phone: [facility] C[facility]-Speech Therapy [address]Start: 10-31-2021 End: 89-77-3134zjntutkamyHtwublm [place] Other [place] Other Start: 05-79-1634Milgilnda encounterDenver Juarez BANNER Referral CoordinatorStart: 10-24-2021 End: 28-47-8400fgilxswvgnAVVYVM H FAWWADFacility:O5Iegxi: 10-16-2021 End: 46-01-6748Gtvaxluiof and management of inpatientSHAIKH H FAWWADFacility:H1 Start: 09-27-2021 End: 96-06-3911zuejubwmxqEojxhkm Langenberg Other no[employer] Other Start: 54-42-1380Sxtrdq outpatient visit 15 minutes Denver LarryFPUte Vascular SurgeryStart: 09-22-2021 End: 91-92-2013ackrxzvjdjVpuqx Das Other nort [employer] Other Start: 73-44-1227Wovzfb outpatient visit 15 minutes Ilda DasFPG [facility] Flushing RoadStart: 09-20-2021 End: 10-61-7269dcqrdimrpqMbofcbd Calvey Other no[employer] Other Start: 78-64-2002Riymqu outpatient visit 10 minutes Susie ArringtonFPUte Manjarrez OrthopedicsStart: 09-02-2021 End: 78-71-5538uuoxhvchtzDQAQUT H FAWWADFacility:L4Riqgx: 08-31-2021 End: 72-33-4359Unpfpma encounter procedureMD Shaikh Barb Work Phone: [facility]-Ultrasound [facility] VascularStart: 64-05-0940Phqcaioemj RecurringMD Kam Barb Work Phone: [facility]-Speech Therapy [address] RdStart: 72-42-7043zbhachznbiKKQLPCN TUCKERFacility:Z4Ciuab: 08-02-2021 End: 43-61-5240zhcmrpmwrbQrpcplz Calv[place]tan Other no[employer] Other Start: 08-02-2021 End: 60-82-5983Yudxyro encounter procedureCollchristina [facility] Start: 07-29-2021 End: 71-17-8992inddelayyiUXLGQW H FAWWADFacility:Q8Yjhkf: 07-12-2021 End: 59-32-5535mfiancwtdtJzrnixf Calvey Other no[employer] Other Start: 03-89-6438Fyjdpb outpatient visit 15 minutes Susie ArringtonFPUte Manjarrez OrthopedicsStart: 07-12-2021 End: 90-14-7207Zarvyot encounter procedureMD Shaikh Barb Work Phone: [facility]-XRay [facility] Start: 06-15-2021 End: 44-47-9608Soahmfdzxb RecurringMD Shaikh Barb Work Phone: [facility]-Targeteer [address] RdStart: 05-31-2021 End: 44-74-4552dqwbjylnojSewqrli Calvey Other no[employer] Other Start: 66-11-3502Zgoxvp follow up visit related to original pxColleen CalveyFPG [facility] OrthopedicsStart: 05-08-2021 End: 14-95-4599tbadeoguqhIHIZOW H FAWWADFacility:P1Kjokw: 05-03-2021 End: 49-69-1395vvqcwlstwpFdfzlez Calvey Other no[employer] Other Start: 15-25-8759Otvefe follow up visit related to original pxColleen CalveyFPG [facility] OrthopedicsStart: 03-30-2021 End: 46-46-2899mtfthabasiZUCPJV H FAWWADFacility:Q1Ccbkd: 03-02-2021 End: 61-31-7079brgepdqxcmDpehpjo Langenberg Other no[employer] Other Start: 28-06-2676Jossso outpatient visit 15 minutes [place] Hill V[facility] SurgeryStart: 03-74-8748Faimje outpatient visit 25 minutesMattbarbara Hill Vascular SurgeryStart: 46-05-9859Mydwjn outpatient visit 15 minutesMatthew Liz Vascular Surgery Procedures DateProcedureProcedure DetailPerforming ClinicianStart: 70-84-4544Ylafhwmmu of substance into bladder wallAurora Ingrid Start: 65-34-4714QE ECHO DOPPLER COMPLETEGeneric External Data ProviderStart: 30-12-8129DA KARSTEN PERF SPECT REST STRGeneric External Data ProviderStart: 45-89-5240BDL HEAD/BRAIN WO/W CONTRSarah Mcleod 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 Work Phone: Start: 20-50-3276JH CERVICAL SPINE WO/W CONSarah Mcleod 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 Work Phone: Start: 90-50-3556ZVP CREATININESarah Mcleod 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 Work Phone: Start: 68-26-9108HCT CBC WITH AUTO DIFFLisa Aichholz 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 Work Phone: Start: 42-43-9300Dsqpi dip stick/tablet rgnt non-auto w/o micrscpLisa Césarholz 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 Work Phone: Start: 17-42-1389CGKCWJX TRACT INFECTION (HTRX)Cindy Dakotaz 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 Work Phone: Start: 59-08-2276EKX UA (CLEAN/CATCH) MICROSCOPIC IF INDICATELisa Aichholz 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 Work Phone: Start: 17-62-6413YZC CBC WITH AUTO DIFFLisa Aichholz 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 Work Phone: Start: 26-49-3857QA videography Hypopharynx and Esophagus Views for swallowing function W speech and W barium contrast Dorian Day MD Work Phone: Start: 47-57-0230Ejeqofd ultrasonography of bilateral carotid arteriesMD Shaikh Day Work Phone: Start: 05-10-3297Zrxgx cultureMD Shaikh Day Work Phone: Start: 38-05-0407Ycurmvt ultrasonography of bilateral carotid arteriesMD Shaikh Reeveswad Work Phone: Start: 51-97-9118Wzhtd depression screening assessment Марина Mary Ellentart: 00-90-1315Rdqvzkj echo study ProcedureGeneric External Data ProviderStart: 28-39-6709VX of head without contrastMD Shaikh Day Work Phone: Start: 21-37-4002Sqbks chest X-rayMD Shaikh Day Work Phone: Start: 98-13-2389Tltizumvjq of Upper Intestinal Tract, Via Natural or Artificial Opening EndoscopicMELINDA TUCKERStart: 10-16-2021 Transfusion of Nonautologous Red Blood Cells into Peripheral Vein, Percutaneous ApproachMELINDA LA PAZ REGIONAL HOSPITALERStart: 53-23-4053Ihlnifq ultrasonography of bilateral carotid arteriesMD Shaikh Barb Work Phone: Start: 55-90-6589Hajnr X-ray of right handMD Shaikh Barb Work Phone: Start: 00-57-1432Kjxfy X-ray of right handMD Shaikh Barb Work Phone: Start: 05-12-2021 End: 44-61-3476VevvydkchkqMopp [facility] Hospitalbharati 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 Work Phone: Arthroplasty of kneeAurora Orzech Blood culture for bacteria, including anaerobic screen MD Shaikh Day Work Phone: Breast surgery (qualifier value)Carmen Orzech Bypass of stomachAurora Orzech HysterectomyAurora Orzech [phone]-IpX-2, Influenza & RSV (PCR)MD Shaikh Day Work Phone: Urine cultureMD Shaikh Barb Work Phone: Plan of Treatment DateCare ActivityDetailAuthorStart: 68-67-1531Ujtjcaztb for malignant neoplasm of colonNOMS HealthcareStart: 55-50-0000TQfI,Tdap and Td Vaccines (2 - Tdap) DTaP,Tdap and Td Vaccines (2 - Tdap)[facility] SystemStart: 02-01-2025 ambulatoryAmbulatoryFacility:SIRI GallegosyStart: 56-75-9498Denfdnpgw vaccination Influenza Vaccine (#1)NOMS HealthcareComment on above:Postponed from 10/13/2023 (Patient Does Not Have Time)Start: 11-12-2024 End: 89-58-8877Gyycjpm encounter /02/2025 9:40 AM EDT Office Visit [facility] [address] [place] [phone] Cindy Collado, SANDRA [address] [place] [phone] [facility] FMStart: 30-92-6854Sbiwwfmgh vaccinationInfluenza Vaccine (#1)NOMS HealthcareStart: 08-13-2024 End: 29-96-0880Ghlcexe encounter lppsjrbfy65/03/2025 2:40 PM EDT Office Visit [facility] [address] [place] [phone] Jameson Mcleod NP [address] [place] [address] JAIME SHILPAYStart: 08-11-2024 End: 84-49-3245Zauaylf encounter vclmqoojc68/01/2025 9:00 AM EDT Office Visit [facility] [address] [place] [phone] Cindy Collado, 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 [address] [place] [phone] [facility] FMStart: 07-15-2024 End: 72-87-2035Balpeid encounter qzqeavjwl21/04/2025 10:20 AM EDT [facility] [address] [place] [phone] Jameson Mcleod, SANDRA [address] [place] [address] JAIME GALLEGOSYStart: 91-80-5998Fruln BMI ScreeningAdult BMI ScreeningMission Hospitaltart: 19-60-2396Tbidmxo ScreeningTobacco ScreeningCrystal Clinic [facility]opedic [facility] System Start: 06-30-2024 End: 06-29-7738Fnffoci encounter pxgudhcop07/20/2025 9:00 AM EDT [facility] [place] [address] aAMISHA GALLEGOSYStart: 06-15-2024 End: 23-19-3939Thxsggq encounter mmdzpbxaw47/05/2025 10:30 AM EDT Office Visit [place] [place] [address] [place] [phone] Chaim Hare, PhD [address] [place] [address] JAIME GALLEGOSYStart: 06-07-2024 End: 27-86-9364Rzzrdlnvu (Vitamin B12) [Mass/volume] in Serum or PlasmaVitamin B12 Lab Routine Ataxia Expressive aphasia Memory difficulty Expected: 06/07/2024 (Approximate), Expires: 06/01/2025[facility] Work Phone: comment on above:Expected: 06/07/2024 (Approximate), Expires: 06/01/2025Start: 06-07-2024 End: 27-64-0962FQ Brain WO and W contrast IVMR brain w and wo contrast routine Imaging Routine Ataxia Gait instability Expressive aphasia Memory difficulty History of ischemic stroke Expected: 06/07/2024 (Approximate), Expires: 06/07/2025[facility] HospitalComment on above:Expected: 06/07/2024 (Approximate), Expires: 06/07/2025Start: 06-07-2024 End: 93-43-5384WM Cervical spine WO and W contrast IVMR cervical spine w and wo contrast Imaging Routine Ataxia Gait instability Expected: 06/07/2024 (Ap proximate), Expires: 06/07/2025NOW[facility] HealthcareComment on above:Expected: 06/07/2024 (Approximate), Expires: 06/07/2025Start: 06-07-2024 End: 47-24-9592Ltaqsgkbbuj [Units/volume] in Serum or PlasmaTSH Lab Routine Ataxia Expressive aphasia Memory difficulty Expected: 06/07/2024 (Approximate), Expires: 06/07/2025NOMS HealthcareComment on above:Expected: 06/07/2024 (Approximate), Expires: 06/07/2025Start: 2024 End: 77-69-2138Qauooxe encounter pgcsiraho60/23/2025 10:30 AM EDT Office Visit [facility] [address] [place] [address] Cindy Collado, 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 [address] [place] [place] [address] ArrivedEASTERN PLUM[facility] FMComment on above:ArrivedStart: 06-02-2024 Medicare Annual Wellness (AWV)Medicare Annual Wellness (AWV)[facility] Healthcare Start: 06-01-2024 End: 63-71-2513Yghkpjp encounter procedureANA BELLEVUEComment on above:Arrived Start: 05-12-2024 End: 99-79-6768Yopnt metabolic 1998 panel - Serum or PlasmaBasic metabolic panel Lab Routine Primary hypertension (CMS/HCC) Expected: 05/12/2024 (Approximate), Expires: 05/12/2025[facility] HealthcareComment on above:Expected: 05/12/2024 (Approximate), Expires: 05/12/2025Start: 05-12-2024 End: 83-32-5418PUB W Auto Differential panel - BloodCBC and differential Lab Routine Cerebrovascular accident (CVA), unspecified mechanism (CMS/HCC) Exp ected: 05/12/2024 (Approximate), Expires: 05/12/2025[facility] Work Phone: Comment on above:Expected: 05/12/2024 (Approximate), Expires: 05/12/2025Start: 98-16-4755Zvfgz BMI ScreeningAdult BMI Screening [facility] SystemStart: 70-84-9397Pbkmdilvkx ScreeningDepression Screening [facility] SystemStart: 27-14-8626Udjgsdg ScreeningTobacco Screening [facility] SystemStart: 69-31-5182Tsabw brachial pressure indexSelect Medical Cleveland Clinic Rehabilitation Hospital, Beachwoodtart: 02-03-2024 End: 75-97-4587Luwrhfw encounter ikdxdfypo10/23/2024 9:20 AM EST Office Visit [facility] [address] [place] [address] Jameson Mcleod NP [address] [place] [address], [place] [address] [facility] NEUROLOGYStart: 01-21-2024 End: 99-53-7009Zutbtsfy identified in Urine by CultureUrine culture (clean catch) Microbiology Routine UTI symptoms Expected: 01/21/2024 (Approximate), Ex giovanny: 01/20/2025[facility] Work Phone: Comment on above:Expected: 01/21/2024 (Approximate), Expires: 01/20/2025Start: 01-21-2024 End: 95-41-9429MFDJDOZ TRACT INFECTION (HTRX)URINARY TRACT INFECTION (HTRX) Lab Routine UTI symptoms Expected: 01/21/2024 (Approximate), Expires: 01/20/2025[facility] HealthcareComment on above:Expected: 01/21/2024 (Approximate), Expires: 01/20/2025Start: 01-21-2024 End: 58-12-1085Moxbiew encounter hcxjrjahj43/10/2024 9:40 AM EST Office Visit [facility] [address] [place] [address] Cindy Collado NP [address] [place] [address] OLGA YEPEZ FMStart: 01-14-2024 End: 75-30-9539Ihscxlb encounter lennonqfx72/03/2024 11:00 AM EST Office Visit [facility] [address] [place] [phone] Martin Arita MD [address] [place] [address], [address], [address], [address] [place] [phone] (Work) [facility] Start: 12-24-2023 End: 08-69-3134Mbefsoc encounter zhjifftmb49/12/2024 9:15 AM EST Office Visit [facility] [address] [place] [phone] Aime Clark, DO [address] [place] [address] [facility] THELMA GALLEGOSYStart: 12-09-2023 End: 19-10-3596Cjbrb qufdncqselo51/28/2024 Abstract [facility] [address] [place] [address] Nakul Zazueta, [address] [place] [address] [facility] NEUROLOGYStart: 12-09-2023 End: 79-96-4575Bbkjzkx encounter kiqhzyysl30/28/2024 9:00 AM EDT Office Visit [facility] [address] [phone] Nakul Zazueta, DO [address] [place] [address] [facility] NEUROLOGYStart: 12-02-2023 End: 80-94-8870EX Esophagus Views W barium contrast POFL esophagus barium swallow Imaging Routine Oropharyngeal dysphagia Expected: 12/02/2023 (Approximat e), Expires: 12/01/2024[facility] HealthcareComment on above:Expected: 12/02/2023 (Approximate), Expires: 12/01/2024Start: 12-02-2023 End: 35-67-6583PI Pharynx and Cervical esophagus Views W barium contrast POFL esophagus pharynx Imaging Routine Oropharyngeal dysphagia Expected: 12/02/2023 (Approximate), Expires: 12/01/2024[facility] Work Phone: comment on above:Expected: 12/02/2023 (Approximate), Expires: 12/01/2024Start: 12-02-2023 End: 93-05-9744Wtzcfre encounter procedureNOMS ENT SANDUSKYComment on above: Oropharyngeal dysphagiaStart: 10-30-2023 End: 08-66-7131Upeqedks identified in Urine by CultureUrine culture (clean catch) Microbiology Routine Urinary tract infection symptoms Expected: 10/30/19 24 (Approximate), Expires: 10/29/2024[facility] Work Phone: Comment on above:Expected: 10/30/2023 (Approximate), Expires: 10/29/2024Start: 10-30-2023 End: 73-20-0044Jhvycfpmqr complete panel - UrineUrinalysis with reflex microscopic (clean catch) Lab Routine Urinary tract infection symptoms Expected: 10/30/2023 (Approximate), Expires: 10/29/2024[facility] HealthcareComment on above: Expected: 10/30/2023 (Approximate), Expires: 10/29/2024Start: 10-22-2023 End: 80-64-6427Elvaazg, urine, randomAlbumin, urine, random Lab Routine Primary hypertension (CMS/HCC) Expected: 10/22/2023 (Approximate), Expires: 10/21/2024 N[facility] HealthcareComment on above:Expected: 10/22/2023 (Approximate), Expires: 10/21/2024Start: 10-22-2023 End: 06-82-5910NLH W Auto Differential panel - BloodCBC and differential Lab Routine Cerebrovascular accident (CVA), unspecified mechanism (CMS/HCC) Ath erosclerosis of coronary artery of [place] heart, unspecified vessel or lesion type, unspecified whether angina present (CMS/HCC) Expected: 10/22/2023 (Approximate), Expires: 10/21/2024 Healthcare Work Phone: Comment on above:Expected: 10/22/2023 (Approximate), Expires: 10/21/2024Start: 10-22-2023 End: 04-41-3698Fswaocikujhoa metabolic 2000 panel - Serum or PlasmaComprehensive metabolic panel Lab Routine Primary hypertension (CMS/HCC) Mixed hyperlipidemia (CMS/HCC) Expected: 10/22/2023 (Approximate), Expires: 10/21/2024[facility] HealthcareComment on above:Expected: 10/22/2023 (Approximate), Expires: 10/21/2024Start: 10-22-2023 End: 25-32-8867Lzcec 1996 panel - Serum or PlasmaLipid panel Lab Routine Cerebrovascular accident (CVA), unspecified mechanism (CMS/HCC) Atherosclerosis of coronary artery of [place] heart, unspecified vessel or lesion type, unspecified whether angina present (CMS/HCC) Mixed hyperlipidemia (CMS/HCC) Expected: 10/22/2023 (Approximate), Expires: 10/21/2024[facility] HealthcareComment on above:Expected: 10/22/2023 (Approximate), Expires: 10/21/2024Start: 10-22-2023 End: 67-15-7539Ydjaycgxqe complete panel - UrineUrinalysis with reflex microscopic (clean catch) Lab Routine Primary hypertension (CMS/HCC) Expected: 10/22/2023 (Approximate), Expires: 10/21/2024NOW[facility] HealthcareComment on above: Expected: 10/22/2023 (Approximate), Expires: 10/21/2024Start: 10-22-2023 End: 38-75-7808Bsqnpiy encounter procedureNOMS CWM FMComment on above:Arrived Start: 74-28-2696Dvulajwqy vaccinationNOMS HealthcareStart: 37-32-8165Snxnbyy referralMercy Health Allen Hospital Work Phone: Start: 72-37-2135Peteedr ultrasonography of bilateral carotid arteriesUS carotid doppler BIFirelands Regional Medical CenterStart: 07-02-2023 End: 35-68-1455Grpvfrg encounter cydkhatuu74/21/2024 9:00 AM EDT Office Visit [facility] [place] [phone] Martin Arita MD [address] [place] [address], [address], [address], [address] [place] [address] [facility] NeurologyStart: 2023 End: 86-41-9527Hlpzsxv encounter emfkemtvi49/22/2024 6:30 PM EDT Office Visit [facility] [address] [place] [address] Shaikh Day MD [address] [place] [phone] [facility] IMStart: 56-49-9243Kxhbdupe identified in Urine by CultureSelect Medical Cleveland Clinic Rehabilitation Hospital, Beachwoodtart: 98-70-0764EutqsicsjSelect Medical Cleveland Clinic Rehabilitation Hospital, Beachwoodtart: 95-90-9656Lzohdgfe admissionSelect Medical Cleveland Clinic Rehabilitation Hospital, Beachwoodtart: 08-35-1243Rnebrgkq Embolic Filtration, Extracorporeal Flow Reversal Circuit from Right Common Carotid Artery,Percutaneous Approach, [employer] 6Cerebral Embolic Filtration, Extracorporeal Flow Reversal Circuit from Right Common Carotid Artery,Percutaneous Approach, [employer] 6 [facility], Beachwoodtart: 99-36-5927Kxxptpuj of Right Internal Carotid Artery with Intraluminal Device, Open ApproachDilation of Right Internal Carotid Artery with Intraluminal Device, Open ApproachSelect Medical Cleveland Clinic Rehabilitation Hospital, Beachwoodtart: 03-12-2023 End: 95-68-2508Znmdhou encounter omcbxtrwm31/30/2024 10:00 AM EST Office Visit [facility] [address] [place] [phone] Alan Elmore MD [address] [place] [address], [address], [address], [address] [place], [place] [phone] [facility] Phys[facility] NeurologyStart: 67-94-1894QDIDS-19 Vaccine ( season)COVID-19 Vaccine ( season)[facility] SystemStart: 23-34-4080Azjkdfxa identified in Urine by CultureUrine CultureSelect Medical Cleveland Clinic Rehabilitation Hospital, Beachwoodtart: 11-22-2021 Comprehensive metabolic 2000 panel - Serum or PlasmaSelect Medical Cleveland Clinic Rehabilitation Hospital, Beachwoodtart: 60-07-3939Qiaafwklr measurementMagruder Memorial Hospital Start: 11-22-2021 End: 90-87-8834DtksbouawSelect Medical Cleveland Clinic Rehabilitation Hospital, Beachwoodtart: 51-80-2385Yefmzaw referral to dietitianSelect Medical Cleveland Clinic Rehabilitation Hospital, Beachwoodtart: 05-24-2094Svouyfsv to cardiologistSelect Medical Cleveland Clinic Rehabilitation Hospital, Beachwoodtart: 66-99-7776Acppmeou admissionSelect Medical Cleveland Clinic Rehabilitation Hospital, Beachwoodtart: 14-10-9286Gesatjyk therapy procedureSelect Medical Cleveland Clinic Rehabilitation Hospital, Beachwoodtart: 34-73-0518Rfvhrrdm to occupational therapistSelect Medical [facility] Clinic Rehabilitation Hospital, Beachwoodtart: 11-21-2021 [facility], Beachwoodtart: 49-38-5988Wjfhaww ultrasonography of bilateral carotid arteriesUS carotid doppler [facility] Start: 39-24-8004QI.doppler Carotid arteries - bilateralMercy Health Allen Hospital Work Phone: Start: 73-51-0007Caxk Risk ScreeningFall Risk ScreeningCrystal Clinic Orthopedic Center SystemStart: 87-14-7418Ojaayhkekcndqr of varicella zoster vaccineZoster (Shingles) Vaccine (1 of 2)[facility] SystemStart: 81-88-1366Rkcfomgux for malignant neoplasm of breastMammogramNOWY Healthcare Start: 58-85-2979Zmsfb BMI Follow Up PlanAdult BMI Follow Up PlanCrystal Clinic Orthopedic Center SystemStart: 32-09-2825Ioybj BMI ScreeningAdult BMI ScreeningCrystal Clinic Orthopedic Center SystemStart: 43-69-7370Nqtxurewga ScreeningDepression ScreeningCrystal Clinic Orthopedic Center SystemStart: 30-56-3354Yvywrwe ScreeningTobacco ScreeningCrystal Clinic Orthopedic Center SystemStart: 04-23-1949Medicare Annual Wellness (AWV)Medicare Annual Wellness (AWV)[facility] HealthcareStart: 04-23-1949Medicare Annual Wellness VisitMedicare Annual Wellness VisitMission Hospitaltart: 55-46-5072Auhvkwsdp for malignant neoplasm of colonNOMS HealthcareAnkle brachial pressure indexMagruder Memorial HospitalBacteria identified in Blood by CultureMagruder Memorial HospitalBacteria identified in Urine by CultureMagruder Memorial HospitalBlood culture for bacteria, including anaerobic screenBlood CultureMagruder Memorial HospitalPatient EducationUpper [facility] Medical [facility]tr Work Phone: Patient referralUpper Valley Medical Center Ctr Work Phone: Urine cultureUrine City HospitalUS.doppler Carotid arteries - [facility] US.doppler Carotid arteries - [facility] US.doppler Carotid arteries - [facility] Immunizations Immunization DateImmunizationNotesCare ItrcwvbuRvhhfddg87-03-2722aicleauza virus vaccine, unspecified formulationAurora Orzech [facility] Hospitaly09-28-2024Seasonal trivalent influenza vaccine, adjuvanted, preservative freeCindy Collado 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 Work Phone: [facility] HospitalXzpgjbnqag47-60-2118porsggstd virus vaccine, unspecified formulationBenjamin Murelvirak DO Work Phone: [facility] Pfxrprab18-86-8940tbcuaxpnz virus vaccine, unspecified formulationAurora Orzech [facility] Hospitaly10-14-2023Influenza, Seasonal, Quadrivalent, AdjuvantedSruyd Day MD Work Phone: [facility] HospitalTpjjapnbxq25-18-4639Qjxjohzprihr Conjugate PCV 20 Shaikh Barb VIDES Work Phone: [facility] HospitalRudzgyxrgr38-22-6105VII vaccine preF3, recombinantAurora Orzech [facility] [place] [address]690-14-2023RSV, recombinant, protein subunit RSVpreF, adjuvant reconstitu, 120mcg/0.5mL, PF (Arexvy)Shaikh Barb VIDES Work Phone: [facility] HospitalYxgmnmxsnc83-40-1333lsszudfgk virus vaccine, unspecified formulationAurora Orzech [facility] [place] 216692-10-2022Influenza, Seasonal, Quadrivalent, AdjuvantLoren Day MD Work Phone: [facility] HospitalPiakkjkjaz54-51-5031zmzdfgzwc virus vaccine, unspecified formulationAurora Orzech [facility] [place] 216690-16-2021Influenza, Seasonal, Quadrivalent, AdjuvantedSrudy Day MD Work Phone: [facility] HospitalJbgmtdbaxt96-78-3227uobxinzcpq, tetanus toxoids and pertussis vaccineSrudy Day MD Work Phone: [facility] HospitalNavptsigbs91-20-6597QMBIQ-30 Ad26.COV2.S (Clarence)MD Shaikh Day Work Phone: [facility]10-28-2020influenza virus vaccine, unspecified formulationAurora Orzech [facility] [place] 216690-28-2020Influenza, High-dose Seasonal, Quadrivalent, Preservative Free Shaikh Barb VIDES Work Phone: [facility] HospitalSgshdntyak12-01-6767bjyrcsfdu virus vaccine, unspecified formulationAurora Orzech [facility] [place] 216691-11-2019influenza, high dose seasonal, preservative-freeShaikh Barb VIDES Work Phone: noPemiscot Memorial Health SystemsQjvmvyzcuw62-14-4955xatfk rawmcmsqj-S7C9-46, preservative-free, injectableShaikh Barb VIDES Work Phone: [facility] HospitalAnskkpqawn59-75-5337qvbhshamt virus vaccine, unspecified formulationJENNIFER CORRIE [facility]02-12-2002influenza, seasonal, injectableLisa Heaven FLORES Work Phone: noPemiscot Memorial Health SystemsDuwdaokssc57-72-5932Yc(adult) unspecified formulationJENNIFER CORRIE [facility]02-12-2002tetanus and diphtheria toxoids, not adsorbed, for adult use Cindy Heaven 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 Work Phone: [facility] Payers DatePayer CategoryPayerPolicy [id number] [id number] (Managed Care)[employer] [id number] 2019Medicare [id number] 2.16.840.6.448234.94468516-48-6240Acac-pay na030219-4d39-58q7-z547-f58f5x52492477-15-6351Lndxhpd78097655 2.16.840.1.287892.3.579.2.77683-39-6141Osnpkfj5826844 2.16.840.1.084475.3.579.2.89723-14-2546Bkzenzp0435598 2.16.840.1.998657.3.579.2.47786-65-4205Zdxzmyk1271426 2.16.840.1.408605.3.579.2.95621-31-6495Edurzkt6463557 2.16.840.1.062333.3.579.2.51348-34-8066Rwlsrnk1117062 2.16.840.1.797230.3.579.2.89189-66-0008Gcwtbsk0174413 2.16.840.1.995818.3.579.2.67308-58-7620Hhaugzc9690571 2.16.840.1.356968.3.579.2.31630-07-2496Ctbryqn8135854 2.16.840.1.565064.3.579.2.62716-33-0379Asaeirc2824522 2.16.840.1.216793.3.579.2.89608-59-8715Cwwrvkf3019243 2.16.840.1.720287.3.579.2.49801-39-9267Rwpgfvr7869595 2.16.840.1.795536.3.579.2.62410-18-4180Cgrdong0689930 2.16.840.1.329249.3.579.2.54152-24-6364Bimmyxw6729915 2.16.840.1.547732.3.579.2.18594-84-3110Qmlfzcm9806485 2.16840.1.481410.3.579.2.97900-66-8095Yoaearf8147622 2.16840.1.967547.3.579.2.68188-05-0372Exttmyv3958952 2.16840.1.098315.3.579.2.69453-87-8825Nbzetwa1448545 2.16840.1.905600.3.579.2.58319-86-4618Mgiplnn0503767 2.840.1.262920.3.579.2.91696-66-4983Awiyeug92242628 2.840.1.657215.3.579.2.577959-07-5054Tqbupqn17674866 2.840.1.509095.3.579.2.712238-68-3714Kitbzhy62749380 2.840.1.638660.3.579.2.184842-88-7145Lnzjpqf50312114 2.840.1.228430.3.579.2.203195-32-4909Oomegzm56020600 2.840.1.262259.3.579.2.945696-08-7833Quyzfha90465076 2.840.1.196579.3.579.2.921050-67-3789Zcfxkgn18547973 2.840.1.506912.3.579.2.265187-53-7653Yzuwdol85857640 2.840.1.513028.3.579.2.849703-75-9969Vyuaxhn73319151 2.840.1.994627.3.579.2.819420-97-4626Pdwzysm89799882 2.16840.1.064582.3.579.2.373241-41-5656Queeblx13493190 2.16840.1.954142.3.579.2.502678-44-1080Gghxlrw30682334 2.16840.1.123756.3.579.2.215084-50-1309Rhpafob68000296 2.16840.1.019216.3.579.2.540584-43-1756Rqzmgsm4214429 2.840.1.527014.3.579.2.763303-13-9549Rhkogqz99513626 2.16840.1.107165.3.579.2.83857-80-2990Ybtwvbv37479507 2.840.1.639544.3.579.2.00126-71-6443Rhwnrht07288538 2.840.1.016519.3.579.2.20807-81-3047Wxhhmnh45911230 2.840.1.216567.3.579.2.51001-43-5329Eriadgw63013719 2.840.1.070186.3.579.2.04349-45-7323Nsgjsjf42768049 2.840.1.441792.3.579.2.60712-89-0062Uowugoj74107386 2.16840.1.528284.3.579.2.36759-85-4713Tlbawtg40718404 2.16840.1.893100.3.579.2.08407-51-4819Mnnsqwy03641961 2.16840.1.225313.3.579.2.36174-47-0700Cexwyur67251816 2.16.840.1.619080.3.579.2.31819-98-2099Fxbkhqm04237696 2.16.840.1.384573.3.579.2.90634-98-2217Ncnkjlr27686789 2.16.840.1.118864.3.579.2.95982-60-8163Yadlmqt13078880 2.16.840.1.368617.3.579.2.37799-28-0069Mleivoa16869053 2.16840.1.069708.3.579.2.03093-31-4565Xhhzqox43617729 2.16840.1.632462.3.579.2.33007-96-4176Ygzjnii65026039 2.16840.1.979489.3.579.2.85282-74-2265Cllgdtl65655912 2.16840.1.723084.3.579.2.10199-80-0008Teucmhi19003142 2.16840.1.179792.3.579.2.98905-16-9126Qkknlsq89561963 2.16840.1.166667.3.579.2.223548-69-5032Gshesue2737692 2.16840.1.340578.3.579.2.5896 2023Qmcygpz9746171 2.16840.1.894789.3.579.2.252324-86-1287Dwzvxac3148017 2.16840.1.902371.3.579.2.738966-59-4884Ppijnbj4970897 2.16840.1.568558.3.579.2.281622-91-1224Erhljrg4866598 2.16840.1.399048.3.579.2.404127-58-3616Gjritdt4332556 2.16840.1.191257.3.579.2.618970-12-1546Fabxrrj5596942 2.16840.1.377852.3.579.2.541398-22-6290Bmxyjxk9581311 2.16840.1.296241.3.579.2.165775-73-3785Bsgdftd5370283 2.16840.1.416908.3.579.2.818527-22-2643Kbbyaxc7220162 2.840.1.745718.3.579.2.546780-33-6447Kluctea3138365 2.840.1.655094.3.579.2.798379-15-0081Fziewvu49448710 2.840.1.782421.3.579.2.03378-06-4429Sqfbfil36743783 2.16840.1.736272.3.579.2.08302-78-3663Qmufkym33358396 2.840.1.666858.3.579.2.79147-61-3413Brbryek22650873 2.840.1.731849.3.579.2.00712-44-5224Zmxhxfh72818711 2.840.1.157566.3.579.2.02787-94-3683Uuwlqsu36366051 2.16840.1.714866.3.579.2.99028-66-0006Twhheij75011688 2.16840.1.747680.3.579.2.64882-18-9098Pvjtpmt16010815 2.16.840.1.176759.3.579.2.92336-55-3715Ogojeow76524978 2.16.840.1.406420.3.579.2.03822-45-6592Szmdkah74848909 2.16.840.1.708569.3.579.2.50570-36-0430Fdowvmd76016690 2.16.840.1.241701.3.5[id number] qp9b1xrz-58l4-7521-536i-3f7xdkf001z1Bdhttmo52734879 2.16.840.1.548307.3.579.2.396Akszgwm86313974 2.16.840.1.833352.3.579.2.531 Social History DateTypeDetailFacilityStart: 03-06-2023 End: 29-18-1433Ynl [facility] 03-31-2021 End: 51-19-0920Rfrmudq smoking status NHISEx-smoker (finding)[facility]tart: 46-02-5052Ipb [facility]igned At [facility]: 03-07-2023 End: 91-76-8023Kifldjx smoking statusNever smoked tobacco (finding)[facility] SanduskyHistory of tobacco useCurrent smokerNOMS HealthcareHistory of tobacco useCigarette SmokerNOMS HealthcareStart: 02-20-2023 End: 91-59-2139Yriaqow use and exposureSmokeless tobacco non-userNOMS Healthcare Start: 02-25-2023 End: 46-99-4610Norgdxk intakeLifetime non-drinker (finding)[facility] HealthcareStart: 03-06-2023 End: 64-87-4232Hiolmyt of Social functionNOWY HealthcareStart: 57-00-0315Rmx Assigned At BirthNot on fileNOWY HealthcareStart: 33-17-9240Tothkww smoking statusNeverExecutive [facility]rology of [facility] SanduskyHistory of tobacco usePassive smokerNOMS HealthcareDo you belong to any clubs or organizations such as moravian groups, unions, fraternal or athletic groups, or [...] before (I/we) got money to buy more.Never trueNOWY HealthcareStart: 02-20-2024 End: 58-93-7855UwoNrjuez (finding)[facility] HospitalDo you feel stress - tense, restless, nervous, or anxious, or unable to sleep at night because yourmind is troubled all the time - these days [OSQ]Not at allNOWY HealthcareStart: 08-25-2018 End: 83-80-0955Frajdmrlf beverage intakeCurrent non-drinker of alcohol (finding) [facility] Dsg.nr SystemSexual OrientationUniversity Hospitals Ahuja Medical Center How often do you need to have someone help you when you read instructions, pamphlets, or other written material from your doctor or pharmacy [SILS]SometimesNOMS Healthcare Medical Equipment Procedure CodeEquipment CodeEquipment Original TextEquipment IdentifierDates Transcarotid artery revascularization (TCAR)Bare-metal carotid artery stent ()[id number] FDAStart: 80-01-0296QXDN, fracture, wristOrthopaedic fixation plate, non-bioabsorbable, sterile()[id number] FDAStart: 05-96-7636AQEG, fracture, wristOrthopaedic bone screw, non- bioabsorbable, non-sterile()[id number] FDAStart: 47-13-8895UOXX, fracture, wristOrthopaedic bone screw, non-bioabsorbable, non-sterile()[id number] FDAStart: 46-79-8769NPGR, fracture, wristOrthopaedic bone screw, non- bioabsorbable, non-sterile()[id number] FDAStart: 91-37-1238AFPM, fracture, wristOrthopaedic bone screw, non-bioabsorbable, non-sterile()[id number] FDAStart: 94-01-9888Bnzxanvgtlxhaa, carotidCardiovascular patch, animal-derived ()[id number] FDAStart: 75-52-9940Wnx Crd Rvl Linq Rpl [id number] - [id number] - [id number]_fvkPqnsz: 04-08-2018 Goals DatePatient GoalDesired Activity/StatePersonal health goalComment on above: Evaluation of progress towards goal: return home with self care and family supportPersonal health goalComment on above: Evaluation of progress towards goal: Return home with self care and family support and resume outpatient therapy. Functional Status FvtaWxbnaeardlMzfsqyWyqbtczh65-34-0807Dpelvfipta StatusN/AExecutive Urology [facility] Hospitalue02-19-2025Functional StatusN/AExec[facility] [place] 111832-16-2024Total score [AUDIT-C]0 01/27/2024 9:54 AM Milton Haines MANOMS Dlebdoxpyi20-86-6672Elecjon Health Questionnaire 2 item (PHQ-2) [Reported][facility] HospitalMxgasvxhgc91-36-7768Vnuabmolxh StatusN/AExec[facility]20[facility] Functional StatusN/A[facility] 33-70-2837Kfnhnlohfr statusPatient at BaselineHolmes County [facility] Work Phone: [phone]) [phone]iptrpux StatusN/AExec[facility]01-24-2024Patient Health Questionnaire 2 item (PHQ-2) [Reported][facility] HospitalIwqnwijltl84-65-2013Flxsgurknv statusPatient at BaselineMer[facility] Work Phone: [phone]) [phone]qluahnslb statusPatient Not at Baseline [facility] Work Phone: [facility] Mental Status MqciJmhaccxoowHknafeLkxxbpno27-28-8413Fmlkrmxhp functionCognitive Status Patient at BaselineHol[facility] Work Phone: [phone] 480-136510007711-89-9755Ufqiaooip functionCognitive Status Patient at BaselineMer[facility] Work Phone: [phone]) [phone]uhbjof functionCognitive Status Patient Not at BaselineMer[facility] Work Phone: Clinical Notes 11-10-2020 to 11-26-2024 Note Date & AdgcDxdiZrqojulk71-08-2143 Evaluation note* Diagnosis Onset Date Resolution Status Admit Date Dizziness and giddiness acuteOctober 2024 9:05amEpisode of recurrent major depressive disorder acuteOctober 2024 9:05amEssential hypertensionacuteOctober 2024 9:05amGAD (generalized anxiety disorder)acuteOctober 2024 9:05amMigraine with aura and without status migrainosus, not intractableacuteOctober 2024 9:05amAtaxiachronicOctober 2024 11:35amGait instabilitychronicOctober 2024 11:35amIschemic strokechronMcLaren Greater Lansing Hospitalober 2024 11:35amAphasiadeleted December 03, 2024 11:35am [facility] Work Phone: 1([phone]) 749-369108-28-2025 Hospital Discharge instructions Patient Education 10/08/2024 09:45:11 [...] (electrical nerve stimulation). ?For women, using a claim review medical director to prevent urine leaks. This is [...] right after experiencing incontinence. General instructions Take cnxb-chy-szuymlp and prescription medicines only as told by [...] important. Where to find more information National [place] of Diabetes and Digestive and Kidney Diseases: www.niddk.nih.gov [employer]: www.urologyhealth.org Contact a health care [...] provider. Document Revised: 09/02/2020 Document Reviewed: 09/02/2020 [employer] Patient Education 2023 [employer] 10/08/2024 09:45:10 Urinary Tract Infection, Adult [...] Treatment for this condition includes: Antibiotic medicine. Dziw-crx-rdbhnzh medicines to treat discomfort. Drinking enough water [...] Follow these instructions at home: Medicines Take uwna-axa-vikccqc and prescription medicines only as told by [...] provider. Document Revised: 09/04/2020 Document Reviewed: 09/09/2020 [employer] Patient Education 2023 [employer] Follow Up Care 09/09/2024 14:35:59 With:MITRA Quintero APRN, JAYESH Whaley, URL Address: When: Unknown Comments:4 mos [facility] 08-28-2025 NotePatient Education Obstetrics and Gynecology [...] this condition includes: ??? Antibiotic medicine. ??? Dmxf-kez-wobkkpe medicines to treat discomfort. ??? Drinking enough [...] these instructions at home: Medicines ??? Take nhsv-wbb-cnxncds and prescription medicines only as told by [...] you di (more content not included)...[facility]08-12-2025 NotePatient Education Custom Cystoscopy with Botox [...] if you have a fever over [address] 09-22-2024 NoteHistory and Physical Patient: OZZIE [...] = 1 tab(s), Oral, Daily Potassium Chloride (Fmf-Hhnt-Xks M10) 10 mEq oral tablet, extended release quetiapine 50 mg oral tablet rosuvastatin 20 mg Tab topiramate 50 mg Tab trospium 60 mg oral capsule, extended release 60 mg = 1 cap(s), Oral, qAM vibegron 75 mg oral tablet 75 mg = 1 tab(s), Oral, Daily Vitamin C See Instructions Problem list: All Problems Stroke / SNOMED CT 883587366 / Confirmed Headache / SNOMED CT 66228923 / Confirmed Hypertension / SNOMED CT 2172493442 / Confirmed Dysuria / SNOMED CT 21030527 / Confirmed Incontinence without sensory awareness / SNOMED CT 9688512253 / Confirmed White matter disease / SNOMED CT 7018790186 / Confirmed UTI (urinary tract infection) / SNOMED CT 204324094 / Confirmed Recurrent UTI / SNOMED CT 451768865 / Confirmed ESBL (extended spectrum beta-lactamase) producing bacteria infection / SNOMED CT 9177214394 / Confirmed ESBL E coli urine Canceled: Mixed incontinence / SNOMED CT 15217972 Histories Family History: Primary malignant neoplasm of female breast Mother Primary malignant neoplasm of bone Father Primary malignant neoplasm of brain Mother Procedure history: Colonoscopy (procedure) (898934284) on 05/12/2021 at 70 Years. Knee replacement (846878015). Breast surgery (2599849358). Hysterectomy (313394481). Gastric bypass (9417963413). Social History Social & Psychosocial Habits Tobacco [...] Soft. Musculoskeletal Normal strength. Integumentary: Warm, Dry, [place]. Neurologic: Alert, Oriented. Psychiatric: Cooperative, Appropriate mood & affect. Impression and Plan Diagnosis Urge incontinence (JQR13-CY N39.41, Working, Medical). Condition: Stable. Counseled: Patient, Regarding diagnosis, Regarding treatment.[facility] HospitalComment on above:Result Comment: Electronically Signed By: AVSQUEZ VIDES, Alexandr Banks.br\Date and Time Signed: 09/22/24 07:57 [id number] Hospital Discharge instructions Patient Education 08/18/2024 09:19:23 [...] Up Care 07/20/2024 12:07:40 With:Alexandr OVALLE Address: [address] [place], [place] [address] Business (1) When: Unknown Comments:Office will call to schedule follow up [facility] 07-08-2025 NotePatient Education Custom Cystoscopy with Urethral [...] you have a fever over 100 degreesFisher [facility] 08-13-2024 Evaluation note* Diagnosis Onset Date Resolution Status Admit Date Ataxia chronicJuly 2024 2:44pmGait instabilitychronicJuly 2024 2:44pmIschemic strokechronicJuly 2024 2:44pmPrimary progressive aphasiachronicJuly 2024 2:44pm [facility] Work Phone: [phone] 491-269707-01-2025 History of Present illness Narrative* Cindy Collado [...] asa, amlodipine, metoprolol XL documented in this encounterWright Memorial HospitalVtiejyrfmo78-78-3641 NoteUT Cardiology [facility] Subjective Ozzie Gifford is a [...] past year she was admitted to the [facility] in October 2022 and February 2023 due to TIA symptoms. She and her son tell me that she underwent redo right carotid surgery in 2023 at [facility]. Today she reports that she has been [...] rub. No gallop. Pulmonary: (more content not included)...[facility] 07-16-2024 Hospital Discharge instructions Patient Education [...] your health care provider. General instructions Take bswf-sqh-epiawpd and prescription medicines only as told by [...] provider. Document Revised: 10/17/2020 Document Reviewed: 10/17/2020 [employer] Patient Education 2023 [employer]. Follow Up Care 07/03/2024 14:11:33 With:[facility] Address: When: Unknown Comments:For procedure as scheduled. [facility] 06-05-2025 NotePatient Education Obstetrics and Gynecology Overactive [...] health care provider. General instructions ??? Take ifji-gxx-gpoqbis and prescription medicines only as told by [...] you drink, and whe (more content not included)...[facility]05-20-2025 History of Present illness Narrative* Chaim [...] No history of alcohol/substance abuse or smoking. [place] language [place]. Competed high school education. 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 Has 2 [...] design 2-5th %ile. Motor/Speed of Processing: Right-handed. Physician Pediatrician strength 21st %ile with right- hand, 2nd [...] individual. Please contact me with anyquestions at [phone]. documented in this encounterWright Memorial HospitalLaqofykttw66-58-3679 History of Present illness Narrative* Chaim Hare, [...] No history of alcohol/substance abuse or smoking. [place] language [place]ymraes. Competed high school education. 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 Has 2 [...] Disturbance of skin sensation 12/02/2015 HTN (hypertension) ([facility]) Muscle spasm 12/02/2015 Myoclonus 12/02/2015 Obesity MEDICATIONS: [...] of this individual. Please contact me with Haul Zing. at [phone]. documented in this encounterWright Memorial HospitalReuklcnaen17-70-9835 History of Present illness Narrative* Cindy Collado [...] not better fu in office Relevant Medications zfbodwfp-pqufifbrk-zeyxuueaiidlhm (Cortisporin) otic solution [facility]* Patient Instructions* Cindy Collado NP - 2024 10:30 AM EDT Ear drops: 4 drops each ear three times daily for 10 days, if not better contact the office [facility] History of Present illness Narrative* Jameson [...] was previously diagnosed with, functional gait, in [place], [place]. 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 RLE strength iliopsoas, quadriceps, tibialis [...] knee reflex 1+. Stephens's sign negative. Coordination: Xskewk-fw-ogdj testing bilateral dysmetria. Substantial truncal ataxia noted. Hsas-jt-uupo testing bilateral dysmetria. Rapid alternating movements mild bradykinesia in the bilateral upper extremities. Gait: Unsteady. Being assisted by her . Unable to tandem walk. Review and summary of old records: MOCA score at [facility] on 06/01/2024: with / recall. [...] to a tertiary care center such as [facility] or [facility] neurology at follow upfor further evaluation and treatment of ataxia/gait instability pending results of work up. Of note, the patient was evaluated by [facility] neurology in June 2023 and diagnosed with [...] February 2023 and was evaluated at [facility] where she had a CT head, [...] NP [facility] Instructions* Patient Instructions* Jameson Mcleod NP - 06/01/2024 1:20 PM EDT - MRI of the brain and cervical spine ([facility]) - Check labs - Referral for neuropsychological evaluation documented in this encounterWright Memorial HospitalNvkcppoalg50-88-6908 History of Present illness Narrative* LYNSEY LOZANO [...] Items Addressed This Visit Cerebrovascular accident (CVA) ([facility]) - Primary Continue w neurology Cont statin, asa and blood pressure meds Is receiving Home Health services Relevant Orders CBC and differential Primary hypertension ([facility]) Please check blood pressure daily and record [...] with home health CRYSTAL (generalized anxiety disorder) ([facility]) Has been on klonopin for some time OARRS reviewed * Cindy Collado NP - 05/12/2024 7:05 AM EDTAssociated Problem(s): Impaired mobility and activities of daily living Continue with home health * Cindy Collado NP - 05/12/2024 7:05 AM EDTAssociated Problem(s): CRYSTAL (generalized anxiety disorder) ([facility]) Has been on klonopin for some time OARRS reviewed * Cindy Collado NP - 05/12/2024 7:05 AM EDTAssociated Problem(s): Overflow incontinence of urine Continue with urology * Cindy Collado NP - 05/12/2024 7:05 AM EDTAssociated Problem(s): Primary hypertension ([facility]) Please check blood pressure daily and record [...] 7:04 AM EDTAssociated Problem(s): Cerebrovascular accident (CVA) ([facility]) Continue w neurology Cont statin, asa and blood pressure meds Is receiving Home Health services documented in this encounterWright Memorial HospitalQrjaktllzw58-95-6555 Instructions* Patient Instructions* Cindy Collado NP - 05/12/2024 1:40 PM EDT Get labs checked No med dose changes Please do your exercises daily documented in this encounterNOMS [id number] Hospital Discharge instructions Patient Education 04/14/2024 13:55:52 [...] your health care provider. General instructions Take xstq-wry-zyuqork and prescription medicines only as told by [...] provider. Document Revised: 10/17/2020 Document Reviewed: 10/17/2020 [employer] Patient Education 2023 [employer]. 04/14/2024 13:55:47 Urinary Tract Infection, Adult Urinary [...] Treatment for this condition includes: Antibiotic medicine. Wyoe-qja-kovokwl medicines to treat discomfort. Drinking enough water [...] Follow these instructions at home: Medicines Take sfzy-hfi-gskmhem and prescription medicines only as told by [...] provider. Document Revised: 09/04/2020 Document Reviewed: 09/09/2020 [employer] Patient Education 2023 [employer]. Follow Up Care 04/14/2024 10:07:35 With:CORRIE EDEN, BERNICE Carias, URL Address: [address] [place] [address]. [place] [address] When: Unknown Comments:F/U in 3 months [facility] 03-04-2025 NotePatient Education Obstetrics and Gynecology Overactive [...] health care provider. General instructions ??? Take nhmu-dfn-yaklctt and prescription medicines only as told by [...] you drink, and whe (more content not included)...[facility]02-19-2025 Hospital Discharge instructions Patient Education 04/01/2024 [...] your health care provider. General instructions Take olom-tzh-qiodnkt and prescription medicines only as told by [...] provider. Document Revised: 10/17/2020 Document Reviewed: 10/17/2020 [employer] Patient Education 2023 [employer] Follow Up Care 01/29/2024 11:53:51 With:CORRIE EDEN, BERNICE Aretha, URL Address: [address] [facility] [place] [address] When: Unknown [facility] [id number] NotePatient Education Obstetrics and Gynecology Overactive Bladder, [...] health care provider. General instructions ??? Take cmbv-aph-roulazi and prescription medicines only as told by [...] you drink, and whe (more content not included)...[facility]01-15-2025 History of Present illness Narrative* Cindy Collado NP - 02/26/2024 4:06 PM EST amb documented in this encounterWright Memorial HospitalFnsfhsmvxn23-65-8094 Evaluation note* Diagnosis Onset Date Resolution Status Admit Date Carotid stenosis acuteJanuary 2024 10:00amInternal carotid artery stent presentacuteJanuary 2024 10:00amLower extremity edemaacuteJanuary 2024 10:00amPAD (peripheral artery disease)acuteJanuary 2024 10:00am [facility] Work Phone: 1(750) 429-667912-18-2024 NoteUrology Office/Clinic Note HPI Staff Pt is [...] yes avoids baths/hot tubs yes avoids scented [employer] products no urinates after sexual activity n/a [...] When Contact Information BERNICE CLEMENTE PA-C, URL [address] [place] [address] Additional Instructions: F/U 2-3 months [...] mg ER Tab, Oral, Daily Potassium Chloride (Knf-Zbqy-Tlb M10) 10 mEq oral tablet, extended release quetiapine 50 mg oral tablet rosuvastatin 20 mg Tab topiramate 50 mg Tab trospium 60 mg oral (more content not included)...[facility] Comment on above:Result Comment: Electronically Signed By: BERNICE CLEMENTE PA-C\.br\Date and Time Signed: 01/28/2414:48 EST\.br\Electronically Co-Signed By: Kori German PA-C\.br\Date and Time Co-Signed: 01/29/2412:49 [id number] Hospital Discharge instructions Patient Education 01/29/2024 12:46:53 [...] Treatment for this condition includes: Antibiotic medicine. Dszc-nbk-bovcqnm medicines to treat discomfort. Drinking enough water [...] Follow these instructions at home: Medicines Take hpwr-iko-zdcppnm and prescription medicines only as told by [...] provider. Document Revised: 09/04/2020 Document Reviewed: 09/09/2020 Second Wind Patient Education 2023 [employer] 01/29/2024 12:46:48 Urinary Incontinence Urinary Incontinence Urinary [...] (electrical nerve stimulation). ?For women, using a claim review medical director to prevent urine leaks. This is [...] right after experiencing incontinence. General instructions Take jzmc-jae-xbccvob and prescription medicines only as told by [...] important. Where to find more information National [place] of Diabetes and Digestive and Kidney Diseases: www.niddk.nih.gov [place] [employer]: www.urologyhealth.org Contact a health care [...] Document Reviewed: 09/02/2020 Elsevier Patient Education 2023 Intuity Medical. Follow Up Care 01/28/2024 10:11:46 With:BERNICE CLEMENTE PA-C, URL Address: [address] [place] [address] When: Unknown Comments:F/U 2-3 months [facility] [place] [id number] NotePatient Education Obstetrics and Gynecology Urinary Tract [...] this condition includes: ??? Antibiotic medicine. ??? Edag-que-setoxdp medicines to treat discomfort. ??? Drinking enough [...] these instructions at home: Medicines ??? Take tgec-tct-qblliov and prescription medicines only as told by [...] you di (more content not included)...[facility]12-12-2024 History of Present illness Narrative* Cindy [...] by [place] 02/20/23 ecoli documented in this encounterWright Memorial [id number] History of Present illness Narrative* Cindy Collado [...] 10:42 AM ESTAssociated Problem(s): Cerebrovascular accident (CVA) ([facility]) Continue w neurology Cont statin, [...] List Items Addressed This Visit Coronary atherosclerosis ([facility]) Continue with cardiology Is on statin, asa, b jimmy and amlodipine Check lipids yearly and prn dose changes Relevant Medications aspirin (Aspirin Adult Low Strength) 81 MG chewable tablet rosuvastatin (Crestor) 20 MG tablet Cerebrovascular accident (CVA) ([facility]) Continue w neurology Cont statin, asa and blood pressure meds Relevant Medications aspirin (Aspirin Adult Low Strength) 81 MG chewable tablet rosuvastatin (Crestor) 20 MG tablet Primary hypertension ([facility]) - Primary Please check blood [...] Recurrent major depressive disorder, in full remission ([facility]) Takes klonopin prn, topirmate, seroquel as well Migraine with aura and without status migrainosus, not intractable ([facility]) Continue with topirimate Relevant Medications topiramate 50 MG tablet Overflow incontinence of urine Will reach out to Urology office to get an appt with them Relevant Orders Ambulatory referral to Urology Carotid artery stenosis Statin, asa, vascular monitoring Relevant Medications rosuvastatin (Crestor) 20 MG tablet Heart failure, unspecified ([facility]) Current meds: lasix, bblocker, crestor and amlodipine [...] Urology Other Visit Diagnoses Anxiety and depression ([facility]) Relevant Medications clonazePAM (KlonoPIN) 0.5 MG tablet * Cindy Collado NP - 01/21/2024 6:46 AM ESTAssociated Problem(s): Migraine with aura and without status migrainosus, not intractable ([facility]) Continue with topirimate * Cindy [...] asa, amlodipine, metoprolol XL [facility] Instructions* Patient Instructions* Cindy Collado NP - 01/21/2024 9:40 AM EST We will enroll you in Chronic Care Management with [facility] Ordered antibiotic, if we need to change atb based on culture will let you know I will call Urology office too to get you in [facility]10[facility] History of Present illness Narrative* Nakul Zazueta DO - 12/09/2023 9:00 AM EDT Images from the original note were not included. Chief complaint: Dizziness and imbalance Subjective Ozzie Gifford, 73 y.o., female HPI Ozzie, 73 y.o., female presents today for consultation at the request of Cindy Kohli NP for dizziness, impaired mobility and migraines. Recently seen at [facility]. 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 RLE Strength illopsoas, quadriceps, tibialis [...] negative. Coordination: Substantial truncal ataxia noted. Abnormal pqgenw-yi-wkov testing. Abnormal nafm-ur-wpxl testing. Gait: Patient has a substantially magnetic [...] that the patient has substantial ataxia on rtojlo-ci-rbia testing, she also hastruncal ataxia noted when closing her eyes and difficulty with bcqj-um-fhry. She has an ataxic gaitas well. This [...] patient has requested these be done at [facility] only. We will keep in mind consideration for testing levodopa responsiveness at follow up Patient may need to be referred to tertiary care center such as [facility] to evaluate for any potential research opportunities or alternative treatment options. History of ischemic stroke It is my impression that the patient has been having 6-9 months of dizziness. The patient did have this as a quite substantial problem in February of 2023 and was actually seen at [facility] where she had CT, CT angiogram [...] monitoring of the patient. documented in this encounterWright Memorial [id number] History of Present illness Narrative* Aime Clark [...] Ambulatory referral to ENT documented in this encounterWright Memorial [id number] History of Present illness Narrative* Cindy Collado [...] List Items Addressed This Visit Mixed hyperlipidemia ([facility]) Relevant Orders Comprehensive metabolic panel Lipid panel Coronary atherosclerosis ([facility]) Crestor, toprol and ASA Relevant Medications aspirin (Aspirin Adult Low Strength) 81 MG chewable tablet Other Relevant Orders CBC and differential Lipid panel Cerebrovascular accident (CVA) ([facility]) Would like a more local neurologist Relevant Medications aspirin (Aspirin Adult Low Strength) 81 MG chewable tablet Other Relevant Orders CBC and differential Lipid panel Ambulatory referral to Neurology Dysarthria Primary hypertension ([facility]) stable Relevant Medications aspirin (Aspirin Adult Low Strength) 81 MG chewable tablet Other Relevant Orders Comprehensive metabolic panel Urinalysis with reflex microscopic (clean catch) Albumin, urine, random Migraine with aura and without status migrainosus, not intractable ([facility]) Relevant Orders Ambulatory referral to Neurology Dizziness and giddiness Refer to neuro Relevant Orders Ambulatory referral to Neurology Carotid artery stenosis Cont statin, and ASA Impaired mobility and activities of daily living Relevant Orders Ambulatory referral to Neurology Oropharyngeal dysphagia - Primary Cont with speech therapy Will refer to ENT Relevant Orders Ambulatory referral to ENT documented in this encounterWright Memorial [id number] NoteUT Cardiology - [facility] Subjective Bhargavluna Gifford is a 73 y.o. year old female patient being seen for 6 mo follow up CAD, hypertension, and LE edema. C/o chest pain 2-3 times a day, but attributes it from her inability to swallow. Patient Active Problem List Diagnosis Carotid artery stenosis Cerebrovascular accident ([facility]) Contusion of knee Coronary atherosclerosis Hypertension Knee joint replacement by other means Osteoarthrosis, unspecified whether generalized or localized, lower leg Reflex sympathetic dystrophy of lower limb Status post placement of implantable loop recorder Tear of medial cartilage or meniscus of knee, current Mixed hyperlipidemia Bradycardia Bilateral lower extremity edema Atypical angina ([facility]) SARAVIA (dyspnea on exertion) JASEN (acute kidney injury) ([facility]) AMS (altered mental status) Anemia Aphasia due to acute stroke ([facility]) Confusion Dysarthria Dysphagia Dystonia H/O traumatic brain injury Headache History of cerebrovascular accident (CVA) with residual deficit Hospital discharge follow-up Impaired mobility and activities of daily living Migraine with aura and without status migrainosus, not intractable Overflow incontinence of urine Recurrent major depressive disorder, in full remission ([facility]) Encounter for prophylactic measures, unspecified [...] past year she was admitted to the [facility] in October 2022 and February 2023 due to TIA symptoms. She and her son tell me that she underwent redo right carotid surgery this year at [facility]. Today she reports that she has been [...] no abdominal tenderness. Musculoskeleta (more content not included)...[facility] 08-21-2023 Hospital Discharge instructions Patient Education [...] medicine. Follow these instructions at home: Take wkdk-szp-gpwdqpa and prescription medicines as told by your [...] provider. Document Revised: 03/14/2020 Document Reviewed: 11/17/2019 ElseTouristR Patient Education 2022 Intuity Medical. Follow Up Care 08/20/2023 09:52:06 With:BERNICE CLEMENTE PA-C, URL Address: [address] [place] [address] Business (1) When: only if needed [facility] [place] 07-10-2024 NotePatient Education Caregiving Antibiotic Medicine, Adult [...] Follow these instructions at home: ? Take tuxi-sdx-qieperx and prescription medicines as told by your health care provider. ? Return to your normal activities as told by your health care provider. Ask your health care provider what activities are safe for you. ? Keep all follow-up visits as told by your health care provider. This is important. Contact a health care provider if: ? Your s (more content not included)...[facility]2024 Hospital Discharge instructions Patient Education 07/15/2023 [...] Treatment for this condition includes: Antibiotic medicine. Dskh-vgz-eqthefo medicines to treat discomfort. Drinking enough water [...] Follow these instructions at home: Medicines Take ydfm-zaa-nsnpnfh and prescription medicines only as told by [...] provider. Document Revised: 09/09/2020 Document Reviewed: 09/09/2020 Second Wind Patient Education 2022 Intuity Medical. 07/15/2023 13:39:50 Urinary Incontinence Urinary Incontinence Urinary [...] (electrical nerve stimulation). ?For women, using a claim review medical director to prevent urine leaks. This is [...] right after experiencing incontinence. General instructions Take uvwh-paj-jlqgtsi and prescription medicines only as told by [...] important. Where to find more information National [place] of Diabetes and Digestive and Kidney Diseases: www.niddk.nih.gov [place] [employer]: www.urologyhealth.org Contact a health care [...] provider. Document Revised: 09/02/2020 Document Reviewed: 09/02/2020 Second Wind Patient Education 2022 Intuity Medical. Follow Up Care 07/15/2023 10:29:19 With:MITRA Quintero APRN, Carmen Rm, JAYESH, URL Address: When: Unknown Comments:1 yr w/ PVR [facility] [place] 2024 Evaluation + Plan note Diagnostic Tests Pending * Urine Culture 07/15/23 [facility]05-24-2024 Miscellaneous Notes* Telephone Encounter - Adia Bowling CMA - 07/05/2023 2:43 PM EDT PT referral faxed to [facility] 07/02/23. Confirmation received. documented in this encounterMansfield Hospital05-24-2024 Telephone encounter Note* Telephone Encounter - Adia Bowling CMA - 07/05/2023 2:43 PM EDT PT referral faxed to [facility] 07/02/23. Confirmation received. [facility]05-24-2024 Miscellaneous Notes* Telephone Encounter - Beti Danielle - 07/05/2023 10:56 AM EDT Please fax patients last office notes (07/02/2023) To: [facility] Fax #: [phone] Phone #: [phone], option 1 Who is calling: Bessy * Telephone Encounter - Tri Gregory - 07/05/2023 10:56 AM EDT Faxed included information to [phone] on 07/05/23 at 15:30 - 07/02/[address] Arita documented in this encounterMansfield Hospital05-24-2024 Telephone encounter Note* Telephone Encounter - Beti Danielle - 07/05/2023 10:56 AM EDT Please fax patients last office notes (07/02/2023) To: [facility] Fax #: [phone] Phone #: [phone], option 1 Who is calling: Bessy [facility]05-24-2024 Telephone encounter Note* Telephone Encounter - Tri Gregory - 07/05/2023 10:56 AM EDT Faxed included information to [phone] on 07/05/23 at 15:30 - 07/02/[address] Arita [facility]05-21-2024 History of Present illness Narrative* Martin Arita MD - 07/02/2023 9:00 AM EDT Images from the original note were not included. [address] [facility] [address] Patient: Ozzie Ramireziott Date of : 1950 Encounter Date: 07/02/2023 Patient Care Team: Gerry Godwin MD as PCP - General (Family Medicine) History of Present Illness: Ms. Ozzie Gifford is a 73 y.o. year old female who is seen today at the neurology [facility]inessclinic at [facility] for a new patient visit. The [...] to display PTSD: No data to display Frederick: No data to display IMAN-10: No data to display Past Medical, Family, Surgical, and Social History Update: The following portions of the patient's history were reviewed and updated as appropriate: allergies, current medications, past family history, past medical history, past social history, past surgicalhistory and problem list. Past Medical History: Diagnosis Date Breast disorder Headache HTN (hypertension) Stroke ([facility]) Family History Problem Relation Age of Onset Brain Tumor Mother Cancer Father Heart attack Brother Past Surgical History: Procedure Laterality Date APPENDECTOMY BARIATRIC SURGERY BREAST MASS EXCISION Patient had milk duct removal and some breast tissue removal CHOLECYSTECTOMY COLONOSCOPY Diagnostic cerebral angiogram N/A 04/05/2018 Performed by Soren Hollingsworth MD at [facility] HYSTERECTOMY REPLACEMENT TOTAL KNEE Stroke Thrombectomy, 04/05/2018 N/A 04/05/2018 Performed by Soren Hollingsworth MD at [facility] TONSILLECTOMY Current Outpatient Medications [...] Right achilles 0 Left achilles 0 MDS-UPDRS: @FLOW([id number] [id number],[id number],2102 [id number],[id number],[id number],[id number],[id number],[id number],2102 58812,[id number],2102 61628,[id number],[id number],[id number],[id number],[id number],2102 17178,[id number],2102 03688,[id number],2102 05792,[id number])@ TETRAS: @FLOW([id number],[id number],30879,51908,79954,93995,55237,40995,31798,81521,41215,40349,15 710,81618,29568,1572 4,65828,36429,75249,19774,19360,22000,22664,77967,91396,84818,42477,13661,23084, 45432,60768,10590,15 797,08453,88315,55884,45495,25380,78460,92698,05900,95309,64425,68736,60395,1581 5,39290,90362)@ Assessment and Plan: Ozzie Gifford is a [...] List None Follow-up: 6 months Swapnil Morales [address] IMARTIN MD, was physically present with [...] you for your understanding. documented in this encounterMansfield Hospital04-24-2024 Miscellaneous Notes* Telephone Encounter - Tri Gregory - 06/05/2023 2:58 PM EDT RN from Dr Day's office called to state Dr Day spoke with Dr Arita, stating patient should be seen in clinic sooner due to worsening symptoms. Patient and clinical staff at Dr aDy's office were informed clinical staff from Dr [...] a sooner appt, pt did not answer. Laundry Operator Wash Room left a brief message stating for a call back. documented in this [facility]04-24-2024 Telephone encounter Note* Telephone Encounter [...] to hear from our office. Please advise. [facility] Telephone encounter Note* Telephone Encounter - Martin Arita MD - 06/05/2023 2:58 PM EDT We can try to add on June 11, at 12:00 p.m.. [facility] Phone: [phone] 262-180504-24-2024 Telephone encounter Note* Telephone Encounter - Britney Banks CMA - 06/05/2023 2:58 PM EDT Called pt to schedule a sooner appt, pt did not answer. Laundry Operator Wash Room left a brief message stating for a call back. [facility] Dsg.nr [id number] Miscellaneous Notes* Telephone Encounter - Re Becerra - 04/10/2023 11:48 AM EST Received a call from patient's PCP office regarding appointment that's scheduled on 07/02/23 at 9:00a with Dr. Arita. Their office stated patient was suppose to be scheduled within 3 weeks from seeing last provider Dr. Haddad, Laundry Operator Wash Room did review office note and nothing was stated that patient neededa [address] Arita. Patient was scheduled at next available time for provider. Nofurther questions at this time. documented in [facility]Way[facility] Dsg.nr [id number] Telephone encounter Note* Telephone Encounter - Re Becerra - 04/10/2023 11:48 AM EST Received a call from patient's PCP office regarding appointment that's scheduled on 07/02/23 at 9:00a with Dr. Arita. Their office stated patient was suppose to be scheduled within 3 weeks from seeing last provider Dr. Haddad, Laundry Operator Wash Room did review office note and nothing was stated that patient neededa [address] Arita. Patient was scheduled at next available time for provider. Nofurther questions at this time. [facility]02-15-2024 Miscellaneous Notes* Telephone Encounter - Марина Whiting - 03/28/2023 2:16 PM EST [facility]email New patient referral received. Dx:Dizzy [...] mailed 03/29/2023 - MMV documented in this encounterMansfield Hospital02-15-2024 Telephone encounter Note* Telephone Encounter - [...] INSURANCE INFORMATION TO THEIR NEW PATIENT APPOINTMENT [employer]02-15-2024 Telephone encounter Note* Telephone Encounter - Viktoriya Myles - 03/28/2023 2:16 PM EST Patient is scheduled for the following appointment: 07/02/2023 09:00 - MARTIN ARITA MD New patient Dizzy [[id number]] Referring provider: Rabia Dubose PA-C i Referred to Dr. Arita *Insurance verified: E-[employer] MEDICARE/ANTHEM MEDICARE ADVANTAGE* NOT A WORKMANS COMP CASE New patient paperwork mailed 03/29/2023 - MMV [facility]02-07-2024 History of Present illness Narrative* Duncan Haddad MD - 03/20/2023 1:00 PM EST Reason for visit: dizziness HPI: Ozzie Gifford is a 72 y.o. 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 She was seen at [facility] for of speech disturbance and gait [...] Date Breast disorder Headache HTN (hypertension) Stroke ([facility]) Past Surgical History Past Surgical History: Procedure Laterality Date APPENDECTOMY BARIATRIC SURGERY BREAST MASS EXCISION Patient had milk duct removal and some breast tissue removal CHOLECYSTECTOMY COLONOSCOPY Diagnostic cerebral angiogram N/A 04/05/2018 Performed by Soren Hollingsworth MD at [facility] HYSTERECTOMY REPLACEMENT TOTAL KNEE Stroke Thrombectomy, 04/05/2018 N/A 04/05/2018 Performed by Soren Hollingsworth MD at [facility] TONSILLECTOMY Family History The [...] in the note above. documented in this encounterKettering Health MiamisburgDecisionlink [id number] Instructions* Patient Instructions* Rabia Dubose PA-C - 03/20/2023 1:00 PM EST Continue aspirin and statin Follow up with dizziness specialist We will discuss with you following appointment with Dr. Arita documented in this encounterKettering Health MiamisburgGenomeDx [id number] Hospital Discharge instructions Patient Education 03/07/2023 14:30:33 [...] (electrical nerve stimulation). ?For women, using a claim review medical director to prevent urine leaks. This is [...] right after experiencing incontinence. General instructions Take relr-yig-tgczqfv and prescription medicines only as told by [...] important. Where to find more information National [place] of Diabetes and Digestive and Kidney Diseases: www.niddk.nih.gov [place] [employer]: www.urologyhealth.org Contact a health care [...] provider. Document Revised: 09/02/2020 Document Reviewed: 09/02/2020 Second Wind Patient Education 2022 Intuity Medical. Follow Up Care 02/21/2023 11:58:10 With:MITRA Quintero APRN, JAYESH Whaley, URL Address: When:Within 8 Week(s) Comments:w/ pvr [facility] [place] 01-22-2024 Miscellaneous Notes* Telephone Encounter - Joie Leyva RN - 03/04/2023 10:13 AM EST ----- Message from Sara Ozuna PA-C sent at 03/02/2023 3:07 PM EST ----- Regarding: [facility] follow up Patient has appt with Dr. Elmore on 03/12, she was just seen at [facility] via telestroke on 03/02. Dr. Haddad would like her put in his neurointervention clinic so please move the appointment. [place] abnormal vessel imaging in the right brachiocephalic and left ICA, MRI was negative for acute stroke. Please get imaging and reports from [place] prior to her appointment. * Telephone Encounter - Ginna Pak CMA - 03/04/2023 10:13 AM EST Faxed imaging request to [facility]. Currently waiting for response. * Telephone Encounter - Selin Peterson - 03/04/2023 10:13 AM EST Called patient and left VM * Telephone Encounter - Angie Sosa - 03/04/2023 10:13 AM EST Patient called and confirmed appointment. Patient will be here on 03/12/2023 at 9:30am * Telephone Encounter - Ginna Pak CMA - 03/04/2023 10:13 AM EST Radiology report was received and uploaded to [employer] Confirmed on [employer] that images are also in. Please advise. [...] she must see one in person . Laundry Operator Wash Room explained what video visits are, and patient states she is aware of what it is but she does notwant it. Pt was also upset that the earliest available for Dr. Haddad is 03/20/23 at 3:00 PM because she willdriving back in the dark. Pt does not want anything later than 1:30 PM. Tried to reach out to [employer] commercial underwriter could squeeze her in, but could not receive an answer on time. If it is not possible, commercial underwriter will call to reschedule. Please advise. * Telephone Encounter - Joie Leyva RN - 03/04/2023 10:13 AM EST Okay as scheduled documented in this encounterMansfield Hospital01-22-2024 Telephone encounter Note* Telephone Encounter - Joie Leyva RN - 03/04/2023 10:13 AM EST ----- Message from Sara Ozuna PA-C sent at 03/02/2023 3:07 PM EST ----- Regarding: [facility] follow up Patient has appt with Dr. [place] on 03/12, she was just seen at [facility] via telestroke on 03/02. Dr. Haddad would like her put in his neurointervention clinic so please move the appointment. [place] abnormal vessel imaging in the right brachiocephalic and left ICA, MRI was negative for acute stroke. Please get imaging and reports from [place] prior to her appointment. [facility]01-22-2024 Telephone encounter Note* Telephone Encounter - Ginna Pak CMA - 03/04/2023 10:13 AM EST Faxed imaging request to [facility]. Currently waiting for response. [facility]01-22-2024 Telephone encounter Note* Telephone Encounter - Selin Peterson - 03/04/2023 10:13 AM EST Called patient and left VM [facility]01-22-2024 Telephone encounter Note* Telephone Encounter - Angie Sosa - 03/04/2023 10:13 AM EST Patient called and confirmed appointment. Patient will be here on 03/12/2023 at 9:30am [facility]01-22-2024 Telephone encounter Note* Telephone Encounter - Gnina Pak CMA - 03/04/2023 10:13 AM EST Radiology report was received and uploaded to [employer] Confirmed on [employer] that images are also in. Please advise. [facility]01-22-2024 Telephone encounter Note* Telephone Encounter - Ginna Pak CMA - 03/04/2023 10:13 AM EST Called pt to reschedule her appointment with Dr. Ramírez Haddad. She expressed frustration for trying reschedule last minute when her took off work for tomorrow's appointment. Suggested video visit for next week, but she insists on seeing regular doctor and she must see one in person . [facility] explained what video visits are, and patient states she is aware of what it is but she does notwant it. Pt was also upset that the earliest available for Dr. Haddad is 03/20/23 at 3:00 PM because she willdriving back in the dark. Pt does not want anything later than 1:30 PM. Tried to reach out to [employer] commercial underwriter could squeeze her in, but could not receive an answer on time. If it is not possible, commercial underwriter will call to reschedule. Please advise. [facility]01-22-2024 Telephone encounter Note* Telephone Encounter - Joie Leyva RN - 03/04/2023 10:13 AM EST Okay as scheduled [facility]12-14-2023 Miscellaneous Notes* Telephone Encounter - Charlette Burr - 01/24/2023 12:46 PM EST Patient called to see if we received paperwork that was sent from her PCP in July. Caller states she has had a new stroke and needs to be seen. Patient states she has been having headaches and dizziness. Please advise [phone] * Telephone Encounter - Joie Leyva RN - 01/24/2023 12:46 PM EST Patient last seen in 2019. No paperwork has been completed or received. Please see where patient had recent stroke and gather records. * Telephone Encounter - Ginna Pak CMA - 01/24/2023 12:46 PM EST Called pt. She state Dr. Godwin sent the paperwork back in November 2022. MRI was done at [place] very recently. [facility] will be requesting image and any office visit notes related to neurology. Pt seems to be very frustrated by the lack of communication. [facility] [facility] informed that we will reach out to [place] to gather as much information. [facility] must note that the quality of the call was very poor and it was hard to communicate with thepatient. Asked if she could move to somewhere with a better law firm receptionist, but even then the quality did not improve. At the end of the call, she showed more frustration which commercial underwriter could not understandand she hung up. * Telephone Encounter - Ginna Pak CMA - 01/24/2023 12:46 PM EST Called [facility] radiology to confirm if she has gotten any MRI in November. It was ordered by one of the hospitalists. A geoscience laboratory technician could not confirm who ordered the [...] 03/12/23 at 10:00 AM documented in this encounterK[facility] MiamisburgDecisionlink [id number] Telephone encounter Note* Telephone Encounter - Charlette Burr - 01/24/2023 12:46 PM EST Patient called to see if we received paperwork that was sent from her PCP in July. Caller states she has had a new stroke and needs to be seen. Patient states she has been having headaches and dizziness. Please advise [phone] [facility]12-14-2023 Telephone encounter Note* Telephone Encounter - Joie Leyva RN - 01/24/2023 12:46 PM EST Patient last seen in 2018. No paperwork has been completed or received. Please see where patient had recent stroke and gather records. [facility]12-14-2023 Telephone encounter Note* Telephone Encounter - Ginna Pak CMA - 01/24/2023 12:46 PM EST Called pt. She state Dr. Godwin sent the paperwork back in November 2022. MRI was done at [place] very recently. [facility] will be requesting image and any office visit notes related to neurology. Pt seems to be very frustrated by the lack of communication. [facility] [facility] [employer] [facility] informed that we will reach out to [place] to gather as much information. [facility] must note that the quality of the call was very poor and it was hard to communicate with thepatient. Asked if she could move to somewhere with a better law firm receptionist, but even then the quality did not improve. At the end of the call, she showed more frustration which commercial underwriter could not understandand she hung up. [facility] Clinic[facility] [id number] Telephone encounter Note* Telephone Encounter - Ginna Pak CMA - 01/24/2023 12:46 PM EST Called [facility] radiology to confirm if she has gotten any MRI in November. It was ordered by one of the hospitalists. A geoscience laboratory technician could not confirm who ordered the imaging, but confirmed that she pushed over the imaging through PACs and reports via fax. Currently waiting for response. [facility]12-14-2023 Telephone encounter Note* Telephone Encounter - Ginna Pak CMA - 01/24/2023 12:46 PM EST Faxed request for hospitalization records on nov 2022. Currently waiting for response. [facility]12-14-2023 Telephone encounter Note* Telephone Encounter - Ginna Pak CMA - 01/24/2023 12:46 PM EST Called and scheduled an appointment on 03/12/23 at 10:00 AM [facility]09-05-2023 Evaluation note* Encounter Date Diagnosis Assessment Notes [...] with chronic urinary symptoms. Patient verbalized understanding. [facility] 02-22-2023 Evaluation note* Encounter Date Diagnosis [...] 1 year with repeat studies for surveillance. [facility] 10-18-2022 NoteED Procedure Charges Entered On: 11/28/2021 17:45 EDT Performed On: 11/28/2021 17:44 EDT by Heena Crawford [employer] ([id number]) Sim Rep Sca to 2.5 [id number] : 1 Heena Crawford - 11/28/2021 17:44 [facility]10-14-2022 NoteED Nursing Discharge Summary Entered On: 11/24/2021 17:29 EDT Performed On: 11/24/2021 17:29 EDT by Jennifer Mccarthy RN [place] Information [id number] ED IV's : No IV ED IV Site Assessment : No IV ED Vitals Completed : Yes ED Final Assessment Completed : Yes ED Progress Note Completed : Yes Complete all PRN/Pain response forms? : Yes ED Disassociate Patient from Monitor : N/A Updated Depart Time : Yes ED Belongings sent w patient [id number] : Not applicable Jennifer Mccarthy RN - [...] Jennifer Mccarthy RN - 11/24/2021 17:29 EDT [facility]10-14-2022 NotePROCEDURE: CT CHEST WITHOUT IV CONTRAST [...] in diameter. See below for follow-up recommendations. [facility] MANDATED QUALITY DATA - FOLLOW-UP [...] By: ISMAEL AGUILAR MD Signed Out: 11/24/21 14:28:[address] [place], [place] 4082710-12-2022 Consult note Author Shavon Srinivasannadege [facility] November 22, 2021 11:54amNote Date/TimeOct2021 11:45[place] [address] Cardiology Consult Note Signed Patient: Ozzie Gifford MR#: [id number] : 1950 Acct:[id number] Age/Sex: 71 / F Adm Date: 2 Loc: Room: [address] [place] [address] Type: ADM IN Attending Dr: Anna Valladares [...] past she underwent work-up by cardiology in [place]. She did undergo an implantableloop recorder because [...] of appendectomy History of cardiac catheterization 2020 [facility] History of knee replacement right knee replacement [...] x10E3/uL Lymph # (Auto) 1.2 (1.00-4.8) x10E3/uL [place] # (Auto) 0.4 (0.0-0.8) x10E3/uL Eos # [...] ,000 ml @ 100 mls/hr IV .Q10H [facility] Rx#:[id number] Oral 250 / 500 450 / 450 [...] an implantable loop recorder had seen cardiologyin [place] Code(s): R00.1 - Bradycardia, unspecified (2) AMS [...] continue his long-term follow-up with his primary glazier structural glass in [place] Documented By: Shavon Leos MD 11/22/21 1143 Signed By: <Electronically signed by MD Shavon Leos> 11/22/21 1154 [facility] Work Phone: 1(253) 783-856010-12-2022 Progress note Author Anna Valladares [facility] November 22, 2021 8:17amNote Date/TimeOctober 2021 12:10pm[place] [address] Hospitalist Progress Note Signed Patient: BaltaEwagilbertluna Pino MR#: [id number] : 1950 Acct:[id number] Age/Sex: 71 / F Adm Date: 2 Loc: 3T Room: [address] [place] [address] Type: ADM IN Attending Dr: Anna Valladares [...] Anna Valladares MD> 11/22/21 0817 [facility] Work Phone: 1(936) 870-536110-11-2022 History and physical note Author Ashleigh Rashid [facility] November 21, 2021 6:39amNote Date/TimeOct2021 6:39am[place] [address] Hospitalist H&P Signed Patient: Ozzie Gifford MR#: [id number] : 1950 Acct:[id number] Age/Sex: 71 / F Adm Date: 2 Loc: ER Room: Type: [facility] ER Attending Dr: Copies to: MD [...] of appendectomy History of cardiac catheterization 2020 [facility] History of knee replacement right knee replacement [...] % (Auto) 20.4 % (.) 11/21/21 04:12 [place] % (Auto) 9.9 % (.) 11/21/21 04:12 Eos % (Auto) 3.7 % (.) 11/21/21 04:12 Baso % (Auto) 0.8 % (.) 11/21/21 04:12 Neut # (Auto) 3.5 x10E3/uL (1.8-7.7) 11/21/21 04:12 Lymph # (Auto) 1.1 x10E3/uL (1.00-4.8) 11/21/21 04:12 [place] # (Auto) 0.5 x10E3/uL (0.0-0.8) 11/21/21 04:12 [...] pH 5.5 (5.0-9.0) 11/21/21 04:20 Ur Specific [place] 1.010 (1.001-1.030) 11/21/21 04:20 Urine Protein Negative [...] Lovenox Documented By: Ashleigh Cruz MD 2 0554 Signed By: <Electronically signed by Ashleigh Cruz MD> 11/21/21 0639 [facility] Work Phone: 1(872) 429-778510-11-2022 History and physical note Author Ashleigh Rashid [facility] November 21, 2021 6:39amNote Date/TimeOct2021 6:39am[place] [address] Hospitalist H&P Signed Patient: Ozzie Gifford MR#: [id number] : 1950 Acct:[id number] Age/Sex: 71 / F Adm Date: 2 Loc: ER Room: Type: [facility] ER Attending Dr: Copies to: MD [...] of appendectomy History of cardiac catheterization 2020 [facility] History of knee replacement right knee replacement [...] % (Auto) 20.4 % (.) 11/21/21 04:12 [place] % (Auto) 9.9 % (.) 11/21/21 04:12 Eos % (Auto) 3.7 % (.) 11/21/21 04:12 Baso % (Auto) 0.8 % (.) 11/21/21 04:12 Neut # (Auto) 3.5 x10E3/uL (1.8-7.7) 11/21/21 04:12 Lymph # (Auto) 1.1 x10E3/uL (1.00-4.8) 11/21/21 04:12 [place] # (Auto) 0.5 x10E3/uL (0.0-0.8) 11/21/21 04:12 [...] pH 5.5 (5.0-9.0) 11/21/21 04:20 Ur Specific [place] 1.010 (1.001-1.030) 11/21/21 04:20 Urine Protein Negative [...] signed by Ashleigh Cruz MD> 11/21/21 0639 [facility] Work Phone: 1(145) 775-378908-17-2022 Evaluation note* Encounter Date Diagnosis Assessment Notes [...] studies. All of her questions were addressed. [facility] 08-12-2022 Evaluation note* Encounter Date Diagnosis [...] Advised that patient may continue to use bsrj-ozs-csnomnl medications as needed for supportive treatment. Discussed that it could be possible that her nausea/vomiting/diarrhea could still be some residual side effects from the Paxlovid medication. At this time she should not take anymore that. She may follow-up with family doctor as scheduled on Saturday if she has more concerns. [facility] 08-10-2022 Evaluation note* Encounter Date Diagnosis [...] new questions or concerns at this time. [facility] 06-22-2022 Evaluation note* Encounter Date Diagnosis [...] Jul,ther specified postprocedural states (ICD-10 - Z98.890) [facility] 06-01-2022 Evaluation note* Encounter Date Diagnosis [...] Jul,ther specified postprocedural states (ICD-10 - Z98.890) [facility] 04-20-2022 Evaluation note* Encounter Date Diagnosis [...] Progress activity as tolerated. Call with questions/concerns. [facility] 03-23-2022 Evaluation note* Encounter Date Diagnosis Assessment Notes Treatment Notes Treatment Clinical Notes Apr, Other specified postprocedural s tates (ICD-10 - Z98.890) Radiographs reviewed with patient. Patient is progressing well from surgery. Continue occupational therapy exercises. Call with questions/concerns. Apr,ther fractures of lower end of left radius, subsequent encounter for closed fracture with routine healing (ICD-10 - S52.592D) [facility] 01-20-2022 Evaluation note* Encounter Date Diagnosis [...] or reaches 80% or she develops symptoms [facility] 10-21-2021 Evaluation note* Encounter Date Diagnosis [...] suggested ice and elevation with compression stockings. [facility] 09-30-2021 Evaluation note* Encounter Date Diagnosis [...] classify this is asymptomatic recurrent stenoses currently. [facility] Evaluation + Plan note No data available for this section [facility] Evaluation + Plan note Future Appointments Appointment Date:04/01/2024 08:40:00 AM Scheduled Provider:BERNICE CLEMENTE PA-C Location:[facility] Appointment Type:URO Office Visit [facility] Evaluation + Plan note Future Appointments Appointment Date:04/01/2024 08:40:00 AM Scheduled Provider:BERNICE CLEMENTE PA-C Location:[facility] Appointment Type:URO Office Visit Diagnostic Tests Pending * Urine Culture 02/20/24 [facility] evaluation + Plan note Future Appointments Appointment Date:04/22/2024 11:20:00 AM Scheduled Provider:BERNICE CLEMENTE PA-C Location:[facility] Appointment Type:URO Office Visit Diagnostic Tests Pending * Urine Culture 04/01/24 [facility] evaluation + Plan note Future Appointments Appointment Date:04/22/2024 11:20:00 AM Scheduled Provider:BERNICE CLEMENTE PA-C Location:[facility] Appointment Type:URO Office Visit [facility] evaluation + Plan note Future Appointments Appointment Date:08/05/2024 03:00:00 PM Scheduled Provider:BERNICE CLEMENTE PA-C Location:[facility] Appointment Type:URO Office Visit [facility] evaluation + Plan note Future Appointments Appointment Date:08/05/2024 03:00:00 PM Scheduled Provider:BERNICE CLEMENTE PA-C Location:[facility] Appointment Type:URO Office Visit Diagnostic Tests Pending * Urine Culture 06/30/24 [facility] Evaluation + Plan note Future Appointments Appointment Date:08/17/2024 09:00:00 AM Scheduled Provider: Location:[facility] Appointment Type:Urology CALL PAT FT Appointment Date:08/18/2024 09:00:00 AM Scheduled Provider: Location:[facility] Appointment Type:Urology FT [facility] Evaluation + Plan note Future Appointments Appointment Date:09/02/2024 12:30:00 PM Scheduled Provider: Location:[facility] Appointment Type:Urology CALL PAT FT Appointment Date:09/03/2024 09:00:00 AM Scheduled Provider: Location:[facility] Appointment Type:Urology FT [facility] Evaluation + Plan note Future Appointments Appointment Date:09/18/2024 04:00:00 PM Scheduled Provider: Location:[facility] Appointment Type:Urology CALL PAT FT Appointment Date:09/22/2024 09:45:00 AM Scheduled Provider: Location:[facility] Appointment Type:Urology FT Appointment Date:10/08/2024 09:00:00 AM Scheduled Provider:MITRA Quintero APRN, [place] Location:[facility] Appointment Type:URO Office Visit [facility] Evaluation + Plan note Future Appointments Appointment Date:02/01/2025 08:00:00 AM Scheduled Provider:MITRA Quintero APRN, [place] [facility] Location:[facility] Appointment Type:URO Office Visit [facility] evaluation noteNo assessment information available [facility] Work Phone: evaluation noteNo InformationNort [employer] Other evaluation note* Diagnosis Onset Date Resolution Status JASEN (acute kidney injury) acuteAMS (altered mental status)acuteImpaired mobility and activities of daily livingacuteSymptomatic bradycardiaacute [facility] Work Phone: Evaluation note* Diagnosis Onset Date Resolution Status JASEN (acute kidney injury) acuteAMS (altered mental status)acuteImpaired mobility and activities of daily livingacuteSymptomatic bradycardiaacuteH/O traumatic brain injurychronicHLD (hyperlipidemia)chronicHTN, goal below 140/90chronic [facility] Work Phone: evaluation note* Diagnosis Anxiety and depression (CMS/HCC)- Primary [facility] in this encounter [facility]* Diagnosis Onset Date Resolution Status Carotid stenosis acuteCarotid stenosisacute [facility] Work Phone: evaluation note* Diagnosis Onset Date Resolution Status Carotid stenosis acuteCarotid stenosisacuteUTI (urinary tract infection)noneactiveContact with or exposure to viral diseasenoneactive [facility] Work Phone: Evaluation note* Diagnosis Onset Date Resolution Status UTI (urinary tract infection) noneactiveContact with or exposure to viral diseasenoneactive [facility] Work Phone: Evaluation note* Diagnosis Onset Date Resolution Status UTI (urinary tract infection) noneactiveContact with or exposure to viral diseasenoneactiveInternal carotid artery stent presentacute [facility] Work Phone: evaluation note* Diagnosis Urinary [...] mechanism (CMS/HCC) Atherosclerosis of coronary artery of [place] heart, unspecified vessel or lesion type, unspecified [...] mechanism (CMS/HCC) Atherosclerosis of coronary artery of [place] heart, unspecified vessel or lesion type, unspecified [...] and depression (CMS/HCC) documented in this encounter [facility]* Diagnosis URTI (acute upper [...] mechanism (CMS/HCC) Atherosclerosis of coronary artery of [place] heart, unspecified vessel or lesion type, unspecified [...] of ischemic stroke documented in this encounter [facility] HealthcareEvaluation note* Diagnosis Acute cystitis without [...] mechanism (CMS/HCC) Atherosclerosis of coronary artery of [place] heart, unspecified vessel or lesion type, unspecified whether angina present (CMS/HCC) Primary hypertension ([facility]) Unspecified essential hypertension Stenosis of [...] disease, unspecified Atherosclerosis of coronary artery of [place] heart, unspecified vessel or lesion type, unspecified whether angina present ([facility]/HCC) Stenosis of right carotid artery Occlusion and stenosis of carotid artery without mention of cerebral infarction Recurrent major depressive disorder, in full remission ([facility]) Cerebrovascular accident (CVA), unspecified mechanism (CMS/HCC) Muscle spasm Spasm of muscle Iron deficiency Disorders of iron metabolism Psychophysiological insomnia Persistent disorder of initiating or maintaining sleep Migraine with aura and without status migrainosus, not intractable (CMS/HCC) CRYSTAL (generalized anxiety disorder) ([facility]) Generalized anxiety disorder UTI symptoms Anxiety and depression ([facility]) Overflow incontinence of urine Overflow [...] phase Dysarthria Cerebrovascular accident (CVA), unspecified mechanism ([facility]/HCC) Atherosclerosis of coronary artery of [place] heart, unspecified vessel or lesion type, unspecified whether angina present ([facility]/HCC) Primary hypertension ([facility]) Unspecified essential hypertension Stenosis of right carotid artery Occlusion and stenosis of carotid artery without mention of cerebral infarction Mixed hyperlipidemia ([facility]) Mixed hyperlipidemia Dizziness and giddiness Impaired mobility and activities of daily living Migraine with aura and without status migrainosus, not intractable (CMS/HCC) Muscle spasm Spasm of muscle Anxiety and depression ([facility]) Iron deficiency Disorders of iron metabolism Psychophysiological insomnia Persistent disorder of initiating or maintaining sleep Primary hypertension ([facility])- Primary Unspecified essential hypertension Heart failure, unspecified ([facility]) Heart failure, unspecified Peripheral vascular disease, unspecified ([facility]) Peripheral vascular disease, unspecified Atherosclerosis of coronary artery of [place] heart, unspecified vessel or lesion type, unspecified whether angina present ([facility]) Stenosis of right carotid artery Occlusion and stenosis of carotid artery without mention of cerebral infarction Recurrent major depressive disorder, in full remission ([facility]) Cerebrovascular accident (CVA), unspecified mechanism ([facility]) Muscle spasm Spasm of muscle Iron deficiency Disorders of iron metabolism Psychophysiological insomnia Persistent disorder of initiating or maintaining sleep Migraine with aura and without status migrainosus, not intractable ([facility]/HCC) CRYSTAL (generalized anxiety disorder) ([facility]) Generalized anxiety disorder UTI symptoms Anxiety and depression ([facility]) Overflow incontinence of urine Overflow incontinence Chronic UTI Urinary tract infection, site not specified Chronic UTI- Primary Urinary tract infection, site not specified documented in this encounter [facility]* Diagnosis Cerebrovascular accident (CVA), unspecified mechanism ([facility]/HCC)- Primary Oropharyngeal dysphagia Dysphagia, oropharyngeal phase Dysarthria documented in this encounter [facility]* Diagnosis Oropharyngeal dysphagia- Primary Dysphagia, oropharyngeal phase Dysarthria Cerebrovascular accident (CVA), unspecified mechanism ([facility]/HCC) Atherosclerosis of coronary artery of [place] heart, unspecified vessel or lesion type, unspecified whether angina present ([facility]) Primary hypertension ([facility] [facility] Unspecified essential hypertension Stenosis of [...] mechanism (CMS/HCC) Atherosclerosis of coronary artery of [place] heart, unspecified vessel or lesion type, unspecified [...] disease, unspecified Atherosclerosis of coronary artery of [place] heart, unspecified vessel or lesion type, unspecified [...] not intractable (CMS/HCC) CRYSTAL (generalized anxiety disorder) ([facility]) Generalized anxiety disorder UTI symptoms Anxiety and depression ([facility]) Overflow incontinence of urine Overflow incontinence Chronic UTI Urinary tract infection, site not specified Chronic UTI- Primary Urinary tract infection, site not specified Cerebrovascular accident (CVA), unspecified mechanism (CMS/HCC)- Primary Dysarthria White matter disease Stenosis of carotid artery, unspecified laterality Peripheral vascular disease, unspecified ([facility]) Peripheral vascular disease, unspecified Overflow incontinence of urine Overflow incontinence Dizziness and giddiness documented in this encounter [facility] HealthcareEvaluation note* Diagnosis Functional gait disorder- Primary Dizziness Dizziness and giddiness documented in this encounter [facility] SystemEvaluation note* Diagnosis Dizzy- Primary Dizziness and giddiness 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 ([facility]) Dizziness Dizziness and giddiness documented in this encounter [facility] SystemEvaluation note* Diagnosis URTI (acute upper [...] oropharyngeal phase Dizziness and giddiness Primary hypertension ([facility])- Primary Unspecified essential hypertension Migraine with aura and without status migrainosus, not intractable ([facility]) Oropharyngeal dysphagia Dysphagia, oropharyngeal phase Oropharyngeal dysphagia- Primary Dysphagia, oropharyngeal phase Dysarthria Cerebrovascular accident (CVA), unspecified mechanism ([facility]) Atherosclerosis of coronary artery of [place] heart, unspecified vessel or lesion type, unspecified whether angina present ([facility]) Primary hypertension ([facility]) Unspecified essential hypertension Stenosis of right carotid artery Occlusion and stenosis of carotid artery without mention of cerebral infarction Mixed hyperlipidemia ([facility]) Mixed hyperlipidemia Dizziness and giddiness Impaired mobility and activities of daily living Migraine with aura and without status migrainosus, not intractable ([facility]/HCC) Muscle spasm Spasm of muscle Anxiety and depression ([facility]) Iron deficiency Disorders of iron metabolism Psychophysiological insomnia Persistent disorder of initiating or maintaining sleep Primary hypertension ([facility]/HCC)- Primary Unspecified essential hypertension Heart failure, unspecified (CMS/[facility]) Heart failure, unspecified Peripheral vascular disease, unspecified ([facility]) Peripheral vascular disease, unspecified Atherosclerosis of coronary artery of [place] heart, unspecified vessel or lesion type, unspecified whether angina present ([facility]) Stenosis of right carotid artery Occlusion and stenosis of carotid artery without mention of cerebral infarction Recurrent major depressive disorder, in full remission ([facility]) Cerebrovascular accident (CVA), unspecified mechanism ([facility]) Muscle spasm Spasm of muscle Iron deficiency Disorders of iron metabolism Psychophysiological insomnia Persistent disorder of initiating or maintaining sleep Migraine with aura and without status migrainosus, not intractable ([facility]) CRYSTAL (generalized anxiety disorder) ([facility]) Generalized anxiety disorder UTI symptoms Anxiety and depression ([facility]) Overflow incontinence of urine Overflow incontinence Chronic UTI Urinary tract infection, site not specified Impaired mobility and activities of daily living History of cerebrovascular accident (CVA) with residual deficit Chronic UTI- Primary Urinary tract infection, site not specified Primary hypertension ([facility])- Primary Unspecified essential hypertension Cerebrovascular accident (CVA), unspecified mechanism ([facility]) Dizziness and giddiness Overflow incontinence of urine Overflow incontinence CRYSTAL (generalized anxiety disorder) ([facility]) Generalized anxiety disorder Impaired mobility [...] oropharyngeal phase Dizziness and giddiness Primary hypertension ([facility]/HCC)- Primary Unspecified essential hypertension Migraine with aura and without status migrainosus, not intractable ([facility]) Oropharyngeal dysphagia Dysphagia, oropharyngeal phase Oropharyngeal dysphagia- Primary Dysphagia, oropharyngeal phase Dysarthria Cerebrovascular accident (CVA), unspecified mechanism ([facility]/HCC) Atherosclerosis of coronary artery of [place] heart, unspecified vessel or lesion type, unspecified whether angina present ([facility]) Primary hypertension ([facility]) Unspecified essential hypertension Stenosis of right carotid artery Occlusion and stenosis of carotid artery without mention of cerebral infarction Mixed hyperlipidemia ([facility]) Mixed hyperlipidemia Dizziness and giddiness Impaired mobility and activities of daily living Migraine with aura and without status migrainosus, not intractable ([facility]/HCC) Muscle spasm Spasm of muscle Anxiety and depression ([facility]/HCC) Iron deficiency Disorders of iron metabolism Psychophysiological insomnia Persistent disorder of initiating or maintaining sleep Primary hypertension ([facility]/HCC)- Primary Unspecified essential hypertension Heart failure, unspecified (CMS/HCC) Heart failure, unspecified Peripheral vascular disease, unspecified ([facility]) Peripheral vascular disease, unspecified Atherosclerosis of coronary artery of [place] heart, unspecified vessel or lesion type, unspecified whether angina present ([facility]) Stenosis of right carotid artery Occlusion and stenosis of carotid artery without mention of cerebral infarction Recurrent major depressive disorder, in full remission ([facility]) Cerebrovascular accident (CVA), unspecified mechanism ([facility]) Muscle spasm Spasm of muscle Iron deficiency Disorders of iron metabolism Psychophysiological insomnia Persistent disorder of initiating or maintaining sleep Migraine with aura and without status migrainosus, not intractable ([facility]/HCC) CRYSTAL (generalized anxiety disorder) ([facility]) Generalized anxiety disorder UTI symptoms Anxiety and depression ([facility]) Overflow incontinence of urine Overflow incontinence Chronic UTI Urinary tract infection, site not specified Impaired mobility and activities of daily living History of cerebrovascular accident (CVA) with residual deficit Chronic UTI- Primary Urinary tract infection, site not specified Primary hypertension ([facility]/HCC)- Primary Unspecified essential hypertension Cerebrovascular accident (CVA), unspecified mechanism ([facility]/HCC) Dizziness and giddiness Overflow incontinence of urine Overflow incontinence CRYSTAL (generalized anxiety disorder) ([facility]) Generalized anxiety disorder Impaired mobility [...] phase Dysarthria Cerebrovascular accident (CVA), unspecified mechanism ([facility]/HCC) Atherosclerosis of coronary artery of [place] heart, unspecified vessel or lesion type, unspecified whether angina present ([facility]) Primary hypertension ([facility]) Unspecified essential hypertension Stenosis of right carotid artery Occlusion and stenosis of carotid artery without mention of cerebral infarction Mixed hyperlipidemia ([facility]) Mixed hyperlipidemia Dizziness and giddiness Impaired mobility and activities of daily living Migraine with aura and without status migrainosus, not intractable ([facility]) Muscle spasm Spasm of muscle Anxiety and depression ([facility]) Iron deficiency Disorders of iron metabolism Psychophysiological insomnia Persistent disorder of initiating or maintaining sleep Primary hypertension ([facility])- Primary Unspecified essential hypertension Heart failure, unspecified ([facility]) Heart failure, unspecified Peripheral vascular disease, unspecified ([facility]) Peripheral vascular disease, unspecified Atherosclerosis of coronary artery of [place] heart, unspecified vessel or lesion type, unspecified whether angina present ([facility]) Stenosis of right carotid artery Occlusion and stenosis of carotid artery without mention of cerebral infarction Recurrent major depressive disorder, in full remission ([facility]) Cerebrovascular accident (CVA), unspecified mechanism ([facility]) Muscle spasm Spasm of muscle Iron deficiency Disorders of iron metabolism Psychophysiological insomnia Persistent disorder of initiating or maintaining sleep Migraine with aura and without status migrainosus, not intractable ([facility]) CRYSTAL (generalized anxiety disorder) ([facility]) Generalized anxiety disorder UTI symptoms Anxiety and depression ([facility]) Overflow incontinence of urine Overflow incontinence Chronic UTI Urinary tract infection, site not specified Impaired mobility and activities of daily living History of cerebrovascular accident (CVA) with residual deficit Chronic UTI- Primary Urinary tract infection, site not specified Primary hypertension ([facility]/HCC)- Primary Unspecified essential hypertension Cerebrovascular accident (CVA), unspecified mechanism ([facility]) Dizziness and giddiness Overflow incontinence of urine Overflow incontinence CRYSTAL (generalized anxiety disorder) ([facility]) Generalized anxiety disorder Impaired mobility [...] oropharyngeal phase Dizziness and giddiness Primary hypertension ([facility]/HCC)- Primary Unspecified essential hypertension Migraine with aura and without status migrainosus, not intractable ([facility]/HCC) Oropharyngeal dysphagia Dysphagia, oropharyngeal phase Oropharyngeal dysphagia- Primary Dysphagia, oropharyngeal phase Dysarthria Cerebrovascular accident (CVA), unspecified mechanism (CMS/HCC) Atherosclerosis of coronary artery of [place] heart, unspecified vessel or lesion type, unspecified whether angina present (CMS/HCC) Primary hypertension ([facility]) Unspecified essential hypertension Stenosis of right carotid artery Occlusion and stenosis of carotid artery without mention of cerebral infarction Mixed hyperlipidemia (CMS/[facility]) Mixed hyperlipidemia Dizziness and giddiness Impaired mobility and activities of daily living Migraine with aura and without status migrainosus, not intractable ([facility]) Muscle spasm Spasm of muscle Anxiety and depression ([facility]) Iron deficiency Disorders of iron metabolism Psychophysiological insomnia Persistent disorder of initiating or maintaining sleep Primary hypertension ([facility]/HCC)- Primary Unspecified essential hypertension Heart failure, unspecified (CMS/HCC) Heart failure, unspecified Peripheral vascular disease, unspecified ([facility]) Peripheral vascular disease, unspecified Atherosclerosis of coronary artery of [place] heart, unspecified vessel or lesion type, unspecified whether angina present ([facility]) Stenosis of right carotid artery Occlusion and stenosis of carotid artery without mention of cerebral infarction Recurrent major depressive disorder, in full remission ([facility]) Cerebrovascular accident (CVA), unspecified mechanism ([facility]) Muscle spasm Spasm of muscle Iron deficiency Disorders of iron metabolism Psychophysiological insomnia Persistent disorder of initiating or maintaining sleep Migraine with aura and without status migrainosus, not intractable (CMS/HCC) CRYSTAL (generalized anxiety disorder) ([facility]) Generalized anxiety disorder UTI symptoms Anxiety and depression ([facility]) Overflow incontinence of urine Overflow incontinence Chronic UTI Urinary tract infection, site not specified Impaired mobility and activities of daily living History of cerebrovascular accident (CVA) with residual deficit Chronic UTI- Primary Urinary tract infection, site not specified Primary hypertension ([facility]/HCC)- Primary Unspecified essential hypertension Cerebrovascular accident (CVA), unspecified mechanism ([facility]) Dizziness and giddiness Overflow incontinence of urine Overflow incontinence CRYSTAL (generalized anxiety disorder) ([facility]/HCC) Generalized anxiety disorder Impaired mobility and activities [...] oropharyngeal phase Dizziness and giddiness Primary hypertension ([facility]/HCC)- Primary Unspecified essential hypertension Migraine with aura and without status migrainosus, not intractable ([facility]) Oropharyngeal dysphagia Dysphagia, oropharyngeal phase Oropharyngeal dysphagia- Primary Dysphagia, oropharyngeal phase Dysarthria Cerebrovascular accident (CVA), unspecified mechanism ([facility]) Atherosclerosis of coronary artery of [place] heart, unspecified vessel or lesion type, unspecified whether angina present ([facility]) Primary hypertension ([facility]) Unspecified essential hypertension Stenosis of right carotid artery Occlusion and stenosis of carotid artery without mention of cerebral infarction Mixed hyperlipidemia (CMS/[facility]) Mixed hyperlipidemia Dizziness and giddiness Impaired mobility and activities of daily living Migraine with aura and without status migrainosus, not intractable ([facility]) Muscle spasm Spasm of muscle Anxiety and depression ([facility]) Iron deficiency Disorders of iron metabolism Psychophysiological insomnia Persistent disorder of initiating or maintaining sleep Primary hypertension ([facility])- Primary Unspecified essential hypertension Heart failure, unspecified (CMS/HCC) Heart failure, unspecified Peripheral vascular disease, unspecified ([facility]) Peripheral vascular disease, unspecified Atherosclerosis of coronary artery of [place] heart, unspecified vessel or lesion type, unspecified whether angina present ([facility]) Stenosis of right carotid artery Occlusion and stenosis of carotid artery without mention of cerebral infarction Recurrent major depressive disorder, in full remission ([facility]) Cerebrovascular accident (CVA), unspecified mechanism ([facility]/HCC) Muscle spasm Spasm of muscle Iron deficiency Disorders of iron metabolism Psychophysiological insomnia Persistent disorder of initiating or maintaining sleep Migraine with aura and without status migrainosus, not intractable (CMS/HCC) CRYSTAL (generalized anxiety disorder) ([facility]) Generalized anxiety disorder UTI symptoms [...] urine Overflow incontinence CRYSTAL (generalized anxiety disorder) ([facility]/HCC) Generalized anxiety disorder Impaired mobility and activities [...] oropharyngeal phase Dizziness and giddiness Primary hypertension ([facility]/HCC)- Primary Unspecified essential hypertension Migraine with aura and without status migrainosus, not intractable ([facility]/HCC) Oropharyngeal dysphagia Dysphagia, oropharyngeal phase Oropharyngeal dysphagia- Primary Dysphagia, oropharyngeal phase Dysarthria Cerebrovascular accident (CVA), unspecified mechanism (CMS/HCC) Atherosclerosis of coronary artery of [place] heart, unspecified vessel or lesion type, unspecified whether angina present ([facility]) Primary hypertension ([facility]) Unspecified essential hypertension Stenosis of right carotid artery Occlusion and stenosis of carotid artery without mention of cerebral infarction Mixed hyperlipidemia (CMS/HCC) Mixed hyperlipidemia Dizziness and giddiness Impaired mobility and activities of daily living Migraine with aura and without status migrainosus, not intractable (CMS/HCC) Muscle spasm Spasm of muscle Anxiety and depression ([facility]/HCC) Iron deficiency Disorders of iron metabolism Psychophysiological insomnia Persistent disorder of initiating or maintaining sleep Primary hypertension (CMS/HCC)- Primary Unspecified essential hypertension Heart failure, unspecified (CMS/HCC) Heart failure, unspecified Peripheral vascular disease, unspecified (CMS/HCC) Peripheral vascular disease, unspecified Atherosclerosis of coronary artery of [place] heart, unspecified vessel or lesion type, unspecified whether angina present ([facility]) Stenosis of right carotid artery Occlusion and stenosis of carotid artery without mention of cerebral infarction Recurrent major depressive disorder, in full remission ([facility]) Cerebrovascular accident (CVA), unspecified mechanism ([facility]) Muscle spasm Spasm of muscle Iron deficiency Disorders of iron metabolism Psychophysiological insomnia Persistent disorder of initiating or maintaining sleep Migraine with aura and without status migrainosus, not intractable ([facility]/HCC) CRYSTAL (generalized anxiety disorder) ([facility]) Generalized anxiety disorder UTI symptoms Anxiety and depression ([facility]) Overflow incontinence of urine Overflow incontinence Chronic UTI Urinary tract infection, site not specified Impaired mobility and activities of daily living History of cerebrovascular accident (CVA) with residual deficit Chronic UTI- Primary Urinary tract infection, site not specified Primary hypertension ([facility])- Primary Unspecified essential hypertension Cerebrovascular accident (CVA), unspecified mechanism ([facility]) Dizziness and giddiness Overflow incontinence of urine Overflow incontinence CRYSTAL (generalized anxiety disorder) ([facility]) Generalized anxiety disorder Impaired mobility and activities of daily living Acute diffuse otitis externa of both ears- Primary Chronic UTI- Primary Urinary tract infection, site not specified Anxiety and depression ([facility]) Overflow incontinence of urine Overflow [...] oropharyngeal phase Dizziness and giddiness Primary hypertension ([facility]/HCC)- Primary Unspecified essential hypertension Migraine with aura and without status migrainosus, not intractable ([facility]) Oropharyngeal dysphagia Dysphagia, oropharyngeal phase Oropharyngeal dysphagia- Primary Dysphagia, oropharyngeal phase Dysarthria Cerebrovascular accident (CVA), unspecified mechanism ([facility]) Atherosclerosis of coronary artery of [place] heart, unspecified vessel or lesion type, unspecified whether angina present ([facility]) Primary hypertension ([facility]) Unspecified essential hypertension Stenosis of [...] disease, unspecified Atherosclerosis of coronary artery of [place] heart, unspecified vessel or lesion type, unspecified [...] not intractable (CMS/HCC) CRYSTAL (generalized anxiety disorder) ([facility]) Generalized anxiety disorder UTI symptoms Anxiety and depression ([facility]) Overflow incontinence of urine Overflow incontinence Chronic UTI Urinary tract infection, site not specified Impaired mobility and activities of daily living History of cerebrovascular accident (CVA) with residual deficit Chronic UTI- Primary Urinary tract infection, site not specified Primary hypertension ([facility]/HCC)- Primary Unspecified essential hypertension Cerebrovascular accident (CVA), unspecified mechanism ([facility]/HCC) Dizziness and giddiness Overflow incontinence of urine Overflow incontinence CRYSTAL (generalized anxiety disorder) ([facility]/HCC) Generalized anxiety disorder Impaired mobility and activities of daily living Acute diffuse otitis externa of both ears- Primary Primary progressive aphasia (CMS/HCC)- Primary Ataxia Lack of coordination Memory difficulty Memory loss History of ischemic stroke Other insomnia DULCE MARIA (obstructive sleep apnea) Obstructive sleep apnea (adult) (pediatric) Severe episode of recurrent major depressive disorder, without psychotic features (HCC) ([facility]) Severe anxiety documented in this encounter NOMS [...] mechanism (HCC) Atherosclerosis of coronary artery of [place] heart, unspecified vessel or lesion type, unspecified [...] disease, unspecified Atherosclerosis of coronary artery of [place] heart, unspecified vessel or lesion type, unspecified [...] essential hypertension Atherosclerosis of coronary artery of [place] heart, unspecified vessel or lesion type, unspecified [...] mechanism (HCC) Atherosclerosis of coronary artery of [place] heart, unspecified vessel or lesion type, unspecified [...] disease, unspecified Atherosclerosis of coronary artery of [place] heart, unspecified vessel or lesion type, unspecified [...] essential hypertension Atherosclerosis of coronary artery of [place] heart, unspecified vessel or lesion type, unspecified [...] maintaining sleep Atherosclerosis of coronary artery of [place] heart, unspecified vessel or lesion type, unspecified [...] mechanism (HCC) Atherosclerosis of coronary artery of [place] heart, unspecified vessel or lesion type, unspecified [...] disease, unspecified Atherosclerosis of coronary artery of [place] heart, unspecified vessel or lesion type, unspecified [...] essential hypertension Atherosclerosis of coronary artery of [place] heart, unspecified vessel or lesion type, unspecified [...] mechanism (HCC) Atherosclerosis of coronary artery of [place] heart, unspecified vessel or lesion type, unspecified [...] disease, unspecified Atherosclerosis of coronary artery of [place] heart, unspecified vessel or lesion type, unspecified [...] essential hypertension Atherosclerosis of coronary artery of [place] heart, unspecified vessel or lesion type, unspecified whether angina present CRYSTAL (generalized anxiety disorder) Generalized anxiety disorder Recurrent major depressive disorder, in full remission Episode of recurrent major depressive disorder, unspecified depression episode severity Overflow incontinence of urine Overflow incontinence Psychophysiological insomnia Persistent disorder of initiating or maintaining sleep Peripheral vascular disease, unspecified- Primary Atherosclerosis of coronary artery of [place] heart, unspecified vessel or lesion type, unspecified [...] mechanism (HCC) Atherosclerosis of coronary artery of [place] heart, unspecified vessel or lesion type, unspecified [...] disease, unspecified Atherosclerosis of coronary artery of [place] heart, unspecified vessel or lesion type, unspecified [...] essential hypertension Atherosclerosis of coronary artery of [place] heart, unspecified vessel or lesion type, unspecified [...] mechanism (HCC) Atherosclerosis of coronary artery of [place] heart, unspecified vessel or lesion type, unspecified [...] disease, unspecified Atherosclerosis of coronary artery of [place] heart, unspecified vessel or lesion type, unspecified [...] essential hypertension Atherosclerosis of coronary artery of [place] heart, unspecified vessel or lesion type, unspecified [...] mechanism (HCC) Atherosclerosis of coronary artery of [place] heart, unspecified vessel or lesion type, unspecified [...] disease, unspecified Atherosclerosis of coronary artery of [place] heart, unspecified vessel or lesion type, unspecified [...] essential hypertension Atherosclerosis of coronary artery of [place] heart, unspecified vessel or lesion type, unspecified [...] without status migrainosus, not intractableacuteOctober 2024 9:05am [facility] Work Phone: History general Narrative - Reported* Type Description Date Medical History DVT Medical Historyleft MCA strokeMedical Historyaphasia due to CVAMedical History anemiaMedical HistoryHTNMedical HistoryhyperlipidemiaMedical Historydystonia Medical HistorydysphagiaMedical Historytraumatic brain injuryMedical Historyleft lower leg CellulitisSurgical HistorytonsillectomySurgical Historycholecystectomy Surgical HistoryappendectomySurgical Historyknee replacement X 5 rightSurgical Historyknee surgery leftSurgical Historybreast duct removal leftSurgical History Right CEA with patch angioplasty04/06/20Hospitalization HistoryCV Hospitalization HistorychildbirthHospitalization HistoryX2 [id number] [facility] Other Hislpaz general Narrative - Reported* Type Description Date [...] [facility],03/2021 Hospitalization HistoryCVHospitalization HistorychildbirthHospitalization HistoryX2 [id number] [facility] Other Hospital Discharge instructions Additional Instructions Please call and schedule an appointment with your established Lead Setter. We attempted to make this appointment for you but the office was currently unavailable.[facility] Work Phone: Hospital Discharge instructions No data available for this section [facility] CenterInstructionsNot on filedocumented in this encounter [facility]InstructionsNot on filedocumented in this encounter [facility] SystemInstructionsNot on filedocumented in this encounter [facility] SystemInstructionsNot on filedocumented in this encounter [facility] SystemInstructionsNot on filedocumented in this encounter [facility] SystemInstructionsNot on filedocumented in this encounter [facility] SystemProgress note No data available for this section [facility] [place] Reason for referral (narrative)* Consultation (Routine) - Pending ReviewSpecialtyDiagnoses / ProceduresReferred By ContactReferred To ContactSpeech Pathology Diagnoses Cerebrovascular accident (CVA), unspecified mechanism (CMS/HCC) Oropharyngeal dysphagia Dysarthria Procedures OK OFFICE/OUTPATIENT NEW HIGH MDM 60 MINUTES Cindy Collado NP [address] [place] [address] Referral IDStatusReasonStart DateExpiration DateVisits RequestedVisits [id number] Review Specialty Services Required / [facility] (narrative)* Consultation (Routine) - Pending ReviewSpecialtyDiagnoses / ProceduresReferred By ContactReferred To Contact Neurology Diagnoses Cerebrovascular accident (CVA), unspecified mechanism (CMS/HCC) Dizziness and giddiness Impaired mobility and activities of daily living Migraine with aura and without status migrainosus, not intractable (CMS/HCC) Procedures OK OFFICE/OUTPATIENT NEW HIGH MDM 60 MINUTES Cindy Collado NP [address] [place] [address] Nakul Zazueta DO [address] [place] [address] Referral IDStatusReasonStart DateExpiration DateVisits RequestedVisits [id number] Review Specialty Services Required / * Consultation (Urgent) - Pending ReviewSpecialtyDiagnoses / ProceduresReferred By ContactReferred To ContactOtolaryngology Diagnoses Oropharyngeal dysphagia Procedures OK OFFICE/OUTPATIENT NEW HIGH MDM 60 MINUTES Cindy Collado, SANDRA [address] [facility] [place] [address] Aime Clark, DO [address] [place] [address] Referral IDStatusReasonStart DateExpiration DateVisits RequestedVisits [id number] Review Specialty Services Required / [facility] (narrative)* Consultation (Routine) - Pending ReviewSpecialtyDiagnoses / ProceduresReferred By ContactReferred To Contact Neurology Diagnoses Rabia Hunt PA-C [address] [place] [address] [address] [place] [address] Martin Arita MD [address] [place] [address], [address], [address], [address] [place] [address] Referral IDStatusReasonStart DateExpiration DateVisits RequestedVisits [id number] Review Specialty Services Required / [facility] (narrative)No reason for referral information availableHolmes [facility] Work Phone: Reason for visit Narrative* Consultation (Routine) - Pending ReviewSpecialtyDiagnoses / ProceduresReferred By ContactReferred To ContactNeurology Diagnoses Rabia Hunt PA-C [address] [place] [address] [address] [place] [address] Martin Arita MD [address] [place] [address], [address], [address], [address] [place] [address] Referral IDStatusReasonStart DateExpiration DateVisits RequestedVisits [id number] Review Specialty Services Required / [facility] Narrative* Consultation (Routine) - ClosedSpecialtyDiagnoses / ProceduresReferred By ContactReferred To Contact Neuropsychology Diagnoses Expressive aphasia Memory difficulty History of ischemic stroke Procedures OK OFFICE/OUTPATIENT [facility] 60 MINUTES Jameson Mcleod NP [address] [place] [address] Phone: tel: Chaim Hare, PhD [address] [place] [address] Phone: tel: fax: Referral IDStatusReasonStart DateExpiration DateVisits RequestedVisits [id number] Specialty Services Required / [facility] Healthcare Summary Purpose Family History No Family [...] Referral SpecialtyDiagnoses / ProceduresReferred By ContactReferred To [facility] Diagnoses Dizzy Functional gait disorder Martin Arita MD Critical access hospital[facility], [address], [address], [address] [place] [address] [facility] [address] [place] [address] Phone: [phone] Fax: [phone] Referral IDStatusReasonStart DateExpiration DateVisits RequestedVisits [id number] Review Additional Source Comments INFORMATION SOURCE (unrecogn ized section and content) DATE CREATED AUTHOR 03/09/2020 [facility] DATE CREATED AUTHOR AUTHOR'S ORGANIZ ATION 12/03/2021 [facility] DATE CREATED AUTHOR AUTHOR'S ORGANIZ ATION 02/28/2022 [facility] DATE CREATED AUTHOR AUTHOR'S ORGANIZ ATION 05/13/2023 [facility] DATE CREATED AUTHOR AUTHOR'S ORGANIZ ATION 07/04/2023 [facility] DATE CREATED AUTHOR AUTHOR'S ORGANIZ ATION 07/16/[address] [facility] DATE CREATED AUTHOR AUTHOR'S ORGANIZ ATION 07/18/[address] [facility] DATE CREATED AUTHOR AUTHOR'S ORGANIZ ATION 02/26/[address] [facility] DATE CREATED AUTHOR AUTHOR'S ORGANIZ ATION 04/05/[address] [facility] DATE CREATED AUTHOR AUTHOR'S ORGANIZ ATION 04/17/[address] [facility] DATE CREATED AUTHOR AUTHOR'S ORGANIZ ATION 05/06/[address] [facility] DATE CREATED AUTHOR AUTHOR'S ORGANIZ ATION 05/08/[address] [facility] DATE CREATED AUTHOR AUTHOR'S ORGANIZ ATION 07/01/2024 [facility] DATE CREATED AUTHOR AUTHOR'S ORGANIZ ATION 07/09/[address] [facility] DATE CREATED AUTHOR AUTHOR'S ORGANIZ ATION 07/24/2024 [facility] DATE CREATED AUTHOR AUTHOR'S ORGANIZ ATION 08/07/[address] [facility] DATE CREATED AUTHOR AUTHOR'S ORGANIZ ATION 08/12/2024 [facility] DATE CREATED AUTHOR AUTHOR'S ORGANIZ ATION 09/19/[address] [facility] DATE CREATED AUTHOR AUTHOR'S ORGANIZ ATION 10/10/[address] [facility] DATE CREATED AUTHOR AUTHOR'S ORGANIZ ATION 11/19/[address] [facility] DATE CREATED AUTHOR AUTHOR'S ORGANIZ ATION 11/25/[address] [facility] DATE CREATED AUTHOR AUTHOR'S ORGANIZ ATION 11/26/[address] [facility] DATE CREATED AUTHOR AUTHOR'S ORGANIZ ATION 12/24/2024 [facility] REASON FOR VISIT (unrecogniz ed section and content) ReasonCommentsOropharyngeal DysphagiaNew Patient : Oropharyngeal Dysphagia SpecialtyDiagnoses / ProceduresReferred By ContactReferred To Contact Otolaryngology Diagnoses Oropharyngeal dysphagia Procedures OK OFFICE/OUTPATIENT NEW HIGH MDM 60 MINUTES Cindy Collado, SANDRA [address] [place] [address] Phone: tel: fax: Aime Clark, DO [address] [place] [address] Phone: tel: fax: Referral IDStatusReasonStart DateExpiration DateVisits RequestedVisits [id number] Specialty Services Required /[id number] DateCommentsMed [id number] Oropharyngeal dysphagiaReasonOnset AudlQzdvnqphcclhxkrxo90/14/2023ReasonOnset DateCommentsoffice notes4ReasonOnset DateCommentsNEW PATIENT REFERRAL 4ReasonOnset DateCommentsSooner Appt4ReasonOnset DateComments Xumnzgtovff72/22/2024ReasonCommentsHypertensionReasonCommentsBalance difficulty Memory LossReasonOnset DateCommentsMed Nsgapw5308/12/2024ReasonOnset DateComments Med Lrlqxk0809/28/2024 Care Teams (unrecognized sec tion and content) [...] ProviderActiveMohammarcell Nava MDOther ProviderActiveAlissa Young MDOther ProviderActiveMIRANDA PengP-BCOther ProviderActive Team Status: Inactive Member Role Status [...] Start DateEnd Shaikh Love MD [facility] Team Status: Inactive Member Role Status [...] Active Start: August 08, 2023 Felicita Sumner 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-CAttending ProviderActiveStart: August 08, 2023 Team Status: Inactive Member Role Status Dates Shaikh Barb MD Primary Care Provider Active Start: August 08, 2023 End: August 08, 2023Felicita Sumner 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-CAttending ProviderActiveStart: August 08, 2023 End: August 08, 2023Team MemberRelationshipSpecialtyStart DateEnd Date Gerry Godwin MD [address] [place] [address] PCP - GeneralFamily Medicine10/03/23 Shaikh Day MD [address] [place] [place] [address] PCP - [place]10/13/23 Cindy Collado NP [address] [place] [address] Nurse PractitionerFamily Medicine10/03/23Team MemberRelationshipSpecialtyStart DateEnd Date Gerry Godwin MD [address] [place] [address] [facility]/03/23 Shaikh Day MD [address] [place] [address] PCP - [place]10/13/23 Cindy Collado, SANDRA [address] [place] [address] Nurse PractitionerP[facility]10/03/23Team MemberRelationshipSpecialtyStart DateEnd Date Gerry Godwin MD [address] [place] [address] PCP - [facility]10/03/23 Shaikh Day MD [address] [place] [address] PCP - [place]10/13/23 Cindy Collado, 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 [address] [place] [address] Nurse Pract[facility]erGro[facility] Hospital Medicine10/03/23 Aime Clark DO [address] [place] [address] Elmbjbmjeaxmxk39/21/24Team MemberRelationshipSpecialtyStart DateEnd Date Gerry Godwin MD [address] [place] [address] PCP - GeneralFamily Medicine10/03/23 Shaikh Day MD [address] [place] [address] PCP - [place]10/13/23 Cindy Collado, 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 [address] [place] [address] Nurse PractitionerFamily Medicine10/03/23 Aime Clark DO [address] [place] [address] Lndyirervqbmve09/21/24Team MemberRelationshipSpecialtyStart DateEnd Date Gerry Godwin MD [address] [place] [address] PCP - [facility]10/03/23 Shaikh Day MD [address] [place] [address] PCP - [place]10/13/23 Cindy Collado, 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 [address] [place] [address] Nurse Pract[facility]erGro[facility] Hospital Medicine10/03/23 Aime Clark DO [address] [place] [address] Thjgzfmqyrfyur03/21/24Team MemberRelationshipSpecialtyStart DateEnd Date Fawwad, Kam, MD [address] [place] [address] PCP - [place]10/13/23 Unallocated, Nomsvitlana Nichole MD [address] [place] [address] PCP - GeneralFamily Xxyhpwcx17/22/24 Cindy Collado NP [address] [place] [address] Nurse PractitionerFami Medicine10/03/23 Aime Clark DO [address] [facility] [place] [address] Qfbkoynvyhbaxg21/21/24 Nakul Zazueta DO [address] [address] Referring XuukafkdcFydznidbz53/28/24 Ynes Snyder NP [address] [address] Nurse LfwnejfybqklMqhblbsbo30/28/24 Jameson Mcleod NP [address] [address] Nurse YfdwylfbetjgTpsxohdwy31/28/24 Team Status: Inactive Member Role Status Dates Shaikh Barb MD Primary Care Provider Active Start: December 12, 2023 End: December 11abilio Clark DOAttending ProviderActiveStart: December 12, 2023 End: December 12, 2023Team MemberRelationshipSpecialtyStart DateEnd Date Gerry Godwin MD [address] [place] [address] PCP - GeneralFa[facility]10/03/23 Cindy Collado, SANDRA [address] [place] [address] Nurse PractitionerP[facility]10/03/23Team MemberRelationshipSpecialtyStart DateEnd Date Gerry Godwin MD [address] [place] [address] PCP - [facility]10/03/23 Cindy Collado, SANDRA [address] [place] [address] Nurse PractitionerP[facility]10/03/23Team MemberRelationshipSpecialtyStart DateEnd Date Gerry Godwin MD [address] [place] [address] PCP - [facility]10/03/23 Cinyd Collado, SANDRA [address] [place] [address] Nurse PractitionerPied[facility]10/03/23Team MemberRelationshipSpecialtyStart DateEnd Date Shaikh Day MD [address] [place] [address] PCP - [place]10/13/23 Gerry Godwin MD [address] [place] [address] PCP - GeneralFaarly Rirqcdoo19/31/24 Cindy Collado NP [address] [place] [address] Nurse PractitionerFamily Medicine10/03/23 Aime Clark DO [address] [place], [place] [address] Wfaantlizttnfo56/21/24 Nakul Zazueta DO [address] [address] Referring UcmifpyzwNyamdjrjh38/28/24 Ynes Snyder NP [address] [address] Nurse RyygjpczuaevQxtrzpyqm62/28/24 Jameson Mcleod NP [address] [address] Nurse YnjwpduxgleaLlflagiuy61/28/24Team MemberRelationshipSpecialtyStart DateEnd Date Shaikh Day MD [address] [place] [address] PCP - [facility]10/13/23 Gerry Godwin MD [address] [place] [address] PCP - GeneralFamily Duuwtefw45/31/24 Cindy Collado, 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 [address] [place] [address] Nurse PractitionerFamily Medicine10/03/23 Aime Clark DO [address] [place] [address] Obtjotfknxjcdz15/21/24 Nakul Zazueta DO [address] [address] Referring XbsuhdgomYbhrmvqig62/28/24 Ynes Snyder NP [address] [address] Nurse RblitpykxespTevchngcl98/28/24 Jameson Mcleod NP [address] [address] Nurse MuwqshnkltocWbvctyacb93/28/24Team MemberRelationshipSpecialtyStart DateEnd Date Shaikh Day MD [address] [place] [address] PCP - [place]10/13/23 Gerry Godwin MD [address] [place] [address] PCP - GeneralFamily Ymonisto43/31/24 Cindy Collado, SANDRA [address] [place] [address] Nurse PractitionerFamily Medicine10/03/23 Aime Clark DO [address] [place] [address] Tmwksdpinqbjri64/21/24 Nakul Zazueta DO [address] [address] Referring AxsvygrruEavklhyxv34/28/24 Ynes Snyder NP [address] [address] Nurse TpzonltciomnJhyfxwgnt97/28/24 Jameson Mcleod NP [address] [address] Nurse JqikdktzmyavRhmtnqylw79/28/24 Milton Piña MA Family Idpduccv18/10/24Team MemberRelationshipSpecialtyStart DateEnd Date Shaikh Day MD [address] [place] [address] PCP - [place]10/13/23 Gerry Godwin MD [address] [place] [address] PCP - GeneralFamily Vkoxjatk11/31/24 Cindy Collado NP [address] [place] [address] Nurse PractitionerFamily Medicine10/03/23 Aime Clark DO [address] [place] [place] [address] Zdrbgwooaxwzur45/21/24 Nakul Zazueta DO [address] [address] Referring VclilbemwKudahfeqx95/28/24 Ynes Snyder NP [address] [address] Nurse YmriortmybhaObjjoyanp80/28/24 Jameson Mcleod NP [address] [address] Nurse NsvdupjtvctwLehjoroxy50/28/24 Milton Piña MA [facility]01/21/24Team MemberRelationshipSpecialtyStart DateEnd Date Gerry Godwin MD [address] [place] [address] PCP - GeneralFamily Medicine10/03/23 Cindy Collado NP [address] [place] [address] Nurse PractitionerFamily Medicine10/03/23Team MemberRelationshipSpecialtyStart DateEnd Date Gerry Godwin MD [address] [place] [address] PCP - GeneralFamily Medicine10/03/23 Cindy Collado NP [address] [place] [address] Nurse PractitionerP[facility]10/03/23Team MemberRelationshipSpecialtyStart DateEnd Date Gerry Godwin MD [address] [place] [address] PCP - [facility]10/03/23 Cindy Collado, SANDRA [address] [place] [address] Nurse PractitionerP[facility]10/03/23 Team Status: Inactive Member Role Status Dates Shaikh Barb MD Primary Care Provider Active Start: February 20, 2024 End: February 20, 2024Denver Juarez MDAttending ProviderActiveStart: February 20, 2024 End: February 20, 2024Team MemberRelationshipSpecialtyStart DateEnd Date Shaikh Day MD [address] [place] [address] PCP - [place]10/13/23 Gerry Godwin MD [address] [place] [address] PCP - GeneralP[facility]12/12/23 Cindy Collado, SANDRA [address] [place] [address] Nurse PractitionerP[facility]10/03/23 Aime Clark DO [address] [place] [address] Fwxguieisptvxl89/21/24 Nakul Zazueta DO [address] [address] Referring AbwqtqyvmTfqvxydta63/28/24 Ynes Snyder NP [address] [address] Nurse JasdmoraeeitBaxhcntrx86/28/24 Jameson Mcleod NP [address] [address] Nurse VoshrjkioqqxUvkmoaawv78/28/24 Milton Piña MA [facility]01/21/24Team MemberRelationshipSpecialtyStart DateEnd Date Gerry Godwin MD [address] [place] [address] PCP - GeneralFamily Medicine04/07/18Team MemberRelationshipSpecialtyStart DateEnd Date Gerry Godwin MD [address] [place] [address] PCP - GeneralFamily Medicine04/07/18Team MemberRelationshipSpecialtyStart DateEnd Date Gerry Godwin MD [address] [place] [facility] [place] [address] PCP - GeneralFamily Medicine04/07/18Team MemberRelationshipSpecialtyStart DateEnd Date Gerry Godwin MD [address] [place] [address] PCP - GeneralFamily Medicine04/07/18Team MemberRelationshipSpecialtyStart DateEnd Date Gerry Godwin MD [address] [place] [address] PCP - GeneralFamily Medicine04/07/18Team MemberRelationshipSpecialtyStart DateEnd Date Gerry Godwin MD [address] [facility] [place] [address] PCP - GeneralFamily Medicine04/07/18Team MemberRelationshipSpecialtyStart DateEnd Date Gerry Godwin MD [address] [facility] [place] [address] PCP - GeneralFamily Medicine04/07/18Team MemberRelationshipSpecialtyStart DateEnd Date Gerry Godwin MD [address] [facility] [place] [address] PCP - GeneralFamily Medicine04/07/18Team MemberRelationshipSpecialtyStart DateEnd Date Gerry Godwin MD [address] [place] [address] PCP - GeneralFamily Punyuzqf15/31/24 Cindy Collado, SANDRA [address] [place] [address] PCP - [place]03/14/24 Cindy Collado NP [address] [place] [address] Nurse PractitionerFamily Medicine10/03/23 Aime Clark, DO [address] [place] [address] Thlbbvlrbfvoqm47/21/24 Nakul Zazueta DO [address] [address] Referring SbnlsgtzxQzgzlparm57/28/24 Ynes Snyder NP [address] [address] Nurse BrnofiwuuyygRvjkemrze58/28/24 Jameson Mcleod NP [address] [address] Nurse NwrqygcpbwqyEimrdslym28/28/24 Milton Piña MA Family Teqkmtmh49/10/24Team MemberRelationshipSpecialtyStart DateEnd Date Gerry Godwin MD [address] [place] [address] PCP - GeneralFamily Vuqojmti47/31/24 Cindy Collado NP [address] [place] [address] PCP - [place]03/14/24 Cindy Collado NP [address] [place] [address] Nurse PractitionerFamily Medicine10/03/23 Aime Clark DO [address] [place] [address] Eyokdrxaymwyko03/21/24 Nakul Zazueta DO [address] [address] Referring PhsssagyjYodwzxuzx48/28/24 Ynes Snyder, SANDRA [address] [address] Nurse EbqsnvkzuhuvMejnxjora78/28/24 Jameson Mcleod NP [address] [address] Nurse RbbxiuycxnoiLjevhdwns19/28/24 Milton Piña MA Family Scimtgfk64/10/24Team MemberRelationshipSpecialtyStart DateEnd Date Gerry Godwin MD [address] [place] [address] PCP - Generalmily Fcwxphuq56/31/24 Gerry Godwin MD [address] [place] [address] PCP - [facility]04/11/24 Cindy Collado NP [address] [place] [address] Nurse PractitionerFamily Medicine10/03/23 Aime Clark DO [address] [place] [address] Kgmdppqodkkads53/21/24 Nakul Zazueta DO [address] [address] Referring HxqnnnkraDyoysrepp45/28/24 Ynes Snyder NP [address] [address] Nurse IewsxqjdashyGzkjeoewf58/28/24 Jameson Mcleod NP [address] [address] Nurse GwilrrsdciiyWuoruzffo33/28/24 Milton Piña MA [facility] Xwxdxxqy36/10/24Team MemberRelationshipSpecialtyStart DateEnd Date Gerry Godwin MD [address] [place] [address] PCP - GeneralFamily Lbwvjtmh11/31/24 Gerry Godwin MD [address] [place] [address] PCP - [facility]04/11/24 Cindy Collado NP [address] [place] [address] Nurse PractitionerFamily Medicine10/03/23 Aime Clark DO [address] [place] [address] Dexggxxvkbdnfv87/21/24 Nakul Zazueta DO [address] [address] Referring XugnhxqyuSzrufhljd21/28/24 Ynes Snyder, SANDRA [address] [address] Nurse LjlhpqqhpnzyHmnigowhg62/28/24 Jameson Mcleod NP [address] [address] Nurse HkrhwqmlrwlbZnjgjkghc24/28/24 Milton Piña MA Family Qfyjfuoz86/10/24Team MemberRelationshipSpecialtyStart DateEnd Date Gerry Godwin MD [address] [place] [address] PCP - GeneralFamily Okhyidly68/31/24 Gerry Godwin MD [address] [place] [address] PCP - [facility]04/11/24 Cindy Collado NP [address] [place] [address] Nurse PractitionerFamily Medicine10/03/23 Aime Clark DO [address] [place] [address] Kfbbjfakrswfme10/21/24 Nakul Zazueta DO [address] [address] Referring BvooprsahNnohybbzs16/28/24 Ynes Snyder, SANDRA [address] [place] [address], [place] [address] Nurse TocssptpmbzzBrywmepyh63/28/24 Jameson Mcleod, SANDRA [address] [address] Nurse EynxzdbsqeenJxgqmcxal32/28/24 Milton Piña MA Family Hmwwoewl89/10/24Team MemberRelationshipSpecialtyStart DateEnd Date Gerry Godwin MD [address] [place] [address] PCP - Generalmily Favhssae00/31/24 Gerry Godwin MD [address] [place] [address] PCP - [facility]04/11/24 Cindy Collado NP [address] [place] [address] Nurse PractitionerFami Medicine10/03/23 Aime Clark DO [address] [facility] [address] Ekdlfydkrvqjnz76/21/24 Nakul Zazueta DO [address] [address] Referring XfeyrnbzdBzfnujvjp88/28/24 Ynes Snyder NP [address] [address] Nurse YimzcoxhbwwkMzkzyhcks72/28/24 Jameson Mcleod, SANDRA [address] [address] [place] [address] Nurse CodjnbarlybaTvdssimin53/28/24 Milton Piña MA Family Crioozfb74/10/24Team MemberRelationshipSpecialtyStmcadenville DateEnd Date Gerry Godwin MD [address] [place] [address] PCP - Generalmily Xvuzqfrx07/31/24 Gerry Godwin MD [address] [place] [address] PCP - [facility]04/11/24 Cindy Collado NP [address] [place] [address] Nurse PractitionerFamily Medicine10/03/23 Aime Clark DO [address] [place] [address] Ngudbdvebztohr66/21/24 Nakul Zazueta DO [address] [address] Referring GltlkdfhqGlmugpeen23/28/24 Ynes Snyder NP [address] [place] [address] Nurse OarbzjvncfovMhdztuswx94/28/24 Jameson Mcleod NP [address] [address] Nurse NkckaogpaxcwGgvnmznie22/28/24 Milton Piña MA [facility]01/21/24Team MemberRelationshipSpecialtyStart DateEnd Date Gerry Godwin MD [address] [place] [address] PCP - GeneralFaarly Gexutnmi17/31/24 Gerry Godwin MD [address] [place] [address] PCP - [facility]04/11/24 Cindy Collado NP [address] [place] [address] Nurse PractitionerFamily Medicine10/03/23 Aime Clark DO [address] [place] [address] Ycmhepjpjbomgd31/21/24 Nakul Zazueta DO [address] [address] Referring HmjitwzflBagocickt43/28/24 Ynes Snyder NP [address] [address] Nurse ZsyoitwndryfWbihxbyaa28/28/24 Jameson Mcleod NP [address] [address] Nurse BbalheadtmgiTvdimwhis99/28/24 Milton Piña MA [facility]01/21/24Team MemberRelationshipSpecialtyStart DateEnd Date Gerry Godwin MD [address] [place] [address] PCP - GeneralFamily Rkpcxryh88/31/24 Gerry Godwin MD [address] [place] [address] PCP - [place]04/11/24 Cindy Collado NP [address] [place] [address] Nurse PractitionerFamily Medicine10/03/23 Aime Clark DO [address] [place] [address] Lpeuneqivjkezy23/21/24 Nakul Zazueta DO [address] [address] Referring SykuxkpmrNdlhcejmt93/28/24 Ynes Snyder NP [address] [address] Nurse IifiojjnzybyBxnegdimf20/28/24 Jameson Mcleod NP [address] [address] Nurse BffvpsjqlgmuJaqajhkjq64/28/24 Milton Piña MA Family Kmpvezks35/10/24Team MemberRelationshipSpecialtyStart DateEnd Date Gerry Godwin MD [address] [place] [address] PCP - GeneralFamily Ewclegyy95/31/24 Cindy Collado, 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 [address] [place] [address] Nurse PractitionerFamily Medicine10/03/23 Aime Clark, DO [address] [place] [address] Yvioaeufrogwel47/21/24 Nakul Zazueta DO [address] [address] Referring WlhtkqqgaEaniwsgph79/28/24 Ynes Snyder NP [address] [address] Nurse KuqczwjebpcaWtysnkmol06/28/24 Jameson Mcleod NP [address] [address] Nurse XzcjgmueakaiObipzowde85/28/24 Milton Piña MA Family Dxwinyvy84/10/24Team MemberRelationshipSpecialtyStart DateEnd Date Gerry Godwin MD [address] [place] [address] PCP - GeneralFamily Fsqeoysc72/31/24 Cindy Collado, SANDRA [address] [place] [address] Nurse PractitionerFamily Medicine10/03/23 Aime Clark, DO [address] [place] [address] Nkjoxnjdvshzwg24/21/24 Nakul Zazueta DO [address] [address] Referring WokzjpvkcRdpafdfta02/28/24 Ynes Snyder, SANDRA [address] [place] [address] Nurse DxzujmpbmrjuHztiouiqo96/28/24 Jameson Mcleod NP [address] [address] Nurse ZfusbghmfozqPuheirafo41/28/24 Milton Piña MA Family Hmcrymvy99/10/24Team MemberRelationshipSpecialtyStart DateEnd Date Gerry Godwin MD [address] [place] [address] PCP - GeneralFamily Blbnqbpz29/31/24 Cindy Collado NP [address] [place] [address] Nurse PractitionerFamily Medicine10/03/23 Aime Clark DO [address] [place] [address] Ejfeinqirxvwwi35/21/24 Nakul Zazueta DO [address] [address] Referring AfadrpefcRnlylgkmb59/28/24 Ynes Snyder, SANDRA [address] [place] [address] Nurse NknmjpfwebvoWnlvopyze00/28/24 Jameson Mcleod, SANDRA [address] [address] [place] [address] Nurse TyytonlrrdfvAczqnyihf43/28/24 Milton Piña MA [facility]01/21/24Team MemberRelationshipSpecialtyStart DateEnd Date Gerry Godwin MD [address] [place] [address] PCP - GeneralFamily Qhiibhms29/31/24 Cindy Collado NP [address] [place] [address] Nurse PractitionerFamily Medicine10/03/23 Aime Clark DO [address] [place], [place] [address] Hrgbxjewzhgmkl34/21/24 Nakul Zazueta DO [address] [address] [place] [address] Referring CsqtmxksrWzornqoxe63/28/24 Ynes Snyder NP [address] [address] [place] [address] Nurse LjoavpzzprnkFyzqnldib08/28/24 Jameson Mcleod, SANDRA [address] [address] [place] [address] Nurse LwlsyerkldkiDdoopckhj12/28/24 Milton Piña MA [facility]01/21/24Team MemberRelationshipSpecialtyStart DateEnd Date Gerry Godwin MD [address] [place] [address] PCP - GeneralFaarly Ozfhwtgr00/31/24 Gerry Godwin MD [address] [place] [address] PCP - [place]04/11/24 Cindy Collado NP [address] [place] [address] Nurse PractitionerFaedward p. [facility] Medicine10/03/23 Aime Clark DO [address] [place] [address] Qpyomdfujhbsro32/21/24 Nakul Zazueta DO [address] [address] Referring QjxsknwldBwyekzuim14/28/24 Ynes Snyder NP [address] [address] Nurse SevzaogcgyhkMgcbxrqxk41/28/24 Jameson Mcleod NP [address] [address] Nurse KdetnozansjrTlfgmqvqn92/28/24 Milton Piña MA [address] [place] [address] Family Hbmycvos08/10/24Team MemberRelationshipSpecialtyStart DateEnd Date Gerry Godwin MD [address] [place] [address] PCP - GeneralFamily Mrhlskub50/31/24 Gerry Godwin MD [address] [place] [address] PCP - [place]04/11/24 Cindy Collado NP [address] [place] [address] Nurse PractitionerFamily Medicine10/03/23 Aime Clark DO [address] [place] [address] Ikoxjgtspzcuqn64/21/24 Nakul Zazueta DO [address] [address] Referring OxythwsvaFtywvqgix53/28/24 Ynes Snyder NP [address] [address] Nurse BcovxwzafwvgJarbqtsia07/28/24 Jameson Mcleod NP [address] [address] Nurse ZsrzoqarwnxcNmkkcqicg23/28/24 Milton Piña, HAROLDO [address] [place] [address] Family Cuiggoir47/10/24Team MemberRelationshipSpecialtyStart DateEnd Date Gerry Godwin MD [address] [place] [address] PCP - GeneralFamily Botirvuw76/31/24 Gerry Godwin MD [address] [place] [address] PCP - [place]04/11/24 Cindy Collado NP [address] [place] [address] Nurse PractitionerFamily Medicine10/03/23 Aime Clark DO [address] [place] [address] Maggovvemuhifi01/21/24 Nakul Zazueta DO [address] [address] Referring HlfabefvxWwwllurur49/28/24 Ynes Snyder NP [address] [address] Nurse BfqzuqvjhfesLsagggpak35/28/24 Jameson Mcleod NP [address] [address] Nurse XwaeawuuuoeeShkgebbgp22/28/24 Milton Piña, HAROLDO [address] [place] [address] Family Nfjifhbk16/10/24Team MemberRelationshipSpecialtyStart DateEnd Date Gerry Godwin MD [address] [place] [address] PCP - GeneralFamily Vcyxxrez06/31/24 Gerry Godwin MD [address] [place] [address] PCP - [place] ZARCO04/11/24 Cindy Collado, SANDRA [address] [place] [address] Nurse PractitionerFamily Medicine10/03/23 Aime Clark DO [address] [place] [address] Ugtufmugktbfds01/21/24 Nakul Zazueta DO [address] [address] Referring GznsjnnxtZfzcwqwog57/28/24 Ynes Snyder, SANDRA [address] [address] Nurse YxclkdhccvneHibyyxata89/28/24 Jameson Mcleod NP [address] [address] Nurse MtfmvetilctpGkwjkxaqq01/28/24 Milton Piña MA [address] [place] [address] Family Thqbdpft34/10/24Team MemberRelationshipSpecialtyStart DateEnd Date Gerry Godwin MD [address] [place] [address] PCP - GeneralFamily Wlaoffqg19/31/24 Gerry Godwin MD [address] [place] [address] PCP - [place] ZARCO04/11/24 Cindy Collado NP [address] [place] [address] Nurse PractitionerFamily Medicine10/03/23 Aime Clark DO [address] [place] [address] Eheaaktkilgvsk62/21/24 Nakul Zazueta DO [address] [address] Referring WjpcjlcjkIpmwxzull78/28/24 Ynes Snyder NP [address] [address] Nurse BduwzhmcaqnoAgxpsmqso25/28/24 Jameson Mcleod NP [address] [address] Nurse BzxywhzskdypTszuutpkl64/28/24 Milton Piña MA [address] [place] [address] Family Ikaddjxj01/10/24 Team Status: Active Member Role Status Dates Cindy Collado Primary Care Provider Active Team Status: Inactive Member Role Status Dates EVI Dao Attending Provider Active Start: August 13, 2024 End: August 13, 2024Cindy ColladoPrimary Care ProviderActiveStart: August 13, 2024 End: August 13, 2024Team MemberRelationshipSpecialtyStart DateEnd Date Gerry Godwin MD [address] [place] [address] PCP - GeneralFamily Jsfrdimy47/31/24 Gerry Godwin MD [address] [place] [address] PCP - [place]04/11/24 Cindy Collado NP [address] [place] [address] Nurse PractitionerFami Medicine10/03/23 Aime Clark DO [address] [place] [address] Uwwuwzgdceesed04/21/24 Nakul Zazueta DO [address] [address] Referring ZarpnyrjwGmvgdvmor99/28/24 Ynes Snyder NP [address] [address] Nurse NbkxbbqnhaaoEmsqahbsc18/28/24 Jameson Mcleod NP [address] [address] Nurse BpwhcrottyrgZsuwbyfug57/28/24 Milton Piña MA [address] [place] [address] Family Cvwtreld68/10/24Team MemberRelationshipSpecialtyStart DateEnd Date Gerry Godwin MD [address] [place] [address] PCP - GeneralFamily Logghlpj46/31/24 Gerry Godwin MD [address] [place] [address] PCP - [place]04/11/24 Cindy Collado, SANDRA [address] [place] [address] Nurse PractitionerFamily Medicine10/03/23 Aime Clark DO [address] [place] [address] Wrbnvouqisnnla49/21/24 Nakul Zazueta DO [address] [address] Referring ZkxbmvcflFwkazbpwl21/28/24 Ynes Snyder, SANDRA [address] [address] Nurse DtueoqhicnezRcakmsabj32/28/24 Jameson Mcleod NP [address] [address] Nurse PzsuicwijgreEqwwuonxz41/28/24 Milton Piña, HAROLDO [address] [place] [address] Family Wjjjtwgg12/10/24Team MemberRelationshipSpecialtyStart DateEnd Date Gerry Godwin MD [address] [place] [address] PCP - GeneralFamily Qmuoskju03/31/24 Gerry Godwin MD [address] [place] [address] PCP - [place]04/11/24 Cindy Collado, SANDRA [address] [place] [address] Nurse PractitionerFamily Medicine10/03/23 Aime Clark, DO [address] [place] [address] Qbbjuddqtxyzri50/21/24 Nakul Zazueta DO [address] [address] Referring YtqlqgrecSqlrtgnwx51/28/24 Ynes Snyder NP [address] [address] Nurse FnpdmdomwsstHxyzirjdd80/28/24 Jameson Mcleod NP [address] [address] Nurse PodjpryyxjnhWsotobhje46/28/24 Milton Piña, HAROLDO [address] [place] [address] Family Kbifcvkw08/10/24Team MemberRelationshipSpecialtyStart DateEnd Date Gerry Godwin MD [address] [place] [address] PCP - GeneralFamily Pazkqafh10/31/24 Gerry Godwin MD [address] [place] [address] PCP - [place] ZARCO04/11/24 Cindy Collado NP [address] [place] [address] Nurse PractitionerFamily Medicine10/03/23 Aime Clark DO [address] [place], [place] [address] Tnlcislchdahsg22/21/24 Nakul Zazueta DO [address] [address] Referring GhvjxtmscUklcusyot60/28/24 Ynes Snyder, SANDRA [address] [address] Nurse TfvxscqwidzxVuoktpnfu09/28/24 aJmeson Mcleod NP [address] [address] Nurse RfzylxbmmiirVwblhuoly98/28/24 Milton Piña [place] [address] [place] [address] Family Xhmfwpyr81/10/24Team MemberRelationshipSpecialtyStart DateEnd Date Gerry Godwin MD [address] [place] [address] PCP - GeneralFamily Jkcimxyr77/31/24 Gerry Godwin MD [address] [place] [address] PCP - [place] ZARCO04/11/24 Cindy Collado NP [address] [place] [address] Nurse PractitionerFamily Medicine10/03/23 Aime Clark DO [address] [place] [address] Drckljbjanluuk61/21/24 Nakul Zazueta DO [address] [address] Referring YpfjapyksHanyarkbb78/28/24 Ynes Snyder NP [address] [address] Nurse LcnqqihbyizzEwoutxzwd70/28/24 Jameson Mcleod NP [address] [address] Nurse TwowiefzdcjcIcqcwgfzu11/28/24 Milton Piña MA [address] [place] [address] Family Pawmshgq34/10/24 Team Status: Active Member Role Status Dates Cindy Collado NP-C Primary Care Provider Active Team Status: Active Member Role Status Dates Cindy Collado NP-Pedro Primary Care Provider Active Start: November 24, 2024 Cindy Collado NP-CAttending ProviderActiveStart: November 24, 2024 Team Status: Inactive Member Role Status Dates Cindy Collado NP-C Primary Care Provider Active Start: November 26, 2024 End: November 26, 2024Cindy Collado , 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-CAttending ProviderActiveStart: November 26, 2024 End: November 26, 2024 Team Status: Active Member Role/Relationship Status Dates Cindy Collado , 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-C Primary Care Provider Active Team Status: Active Member Role/Relationship Status Dates Cindy Collado , 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-C Primary Care Provider Active Start: November 24, 2024 Cindy Collado , 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-CAttending ProviderActiveStart: November 24, 2024 Team Status: Inactive Member Role/Relationship Status Dates Cindy Collado , 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-C Primary Care Provider Active Start: November 26, 2024 End: November 26, 2024Cindy Collado , 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-CAttending ProviderActiveStart: November 26, 2024 End: November 26, 2024 Team Status: Inactive Member Role/Relationship Status Dates Cindy Collado , 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-C Primary Care Provider Active Start: December 03, 2024 End: December 03, 2024Jameson Mcleod APRN-FNP-CAttending ProviderActive Start: December 03, 2024 End: December 03, 2024Team MemberRelationshipSpecialtyStart DateEnd Date Shaikh Day MD PCP - GeneralInternal Medicine Gerry Godwin MD PCP - GeneralFamily Medicine10/02/2409 Shaikh Day MD [address] [place] [address] PCP - [place]10/13/2411 Unallocated, Olga Nichole MD [address] [facility] [address] PCP - GeneralFamily Ozmorphw43/22/ Gerry Godwin MD PCP - GeneralFamily Taphfvbt14/31/24 Gerry Godwin MD [address] [place] [address] PCP - [place]04/11/24 Cindy Collado NP Nurse PractitionerFamily Medicine10/03/23 Aime Clark DO [address] [place] [address] Rgfbnbqclkgkbz76/21/24 Nakul Zazueta DO [address] [address] Referring GjuhokcxaVkofkbrzu79/28/24 Ynes Snyder NP [address] [address] Nurse VddjmbfftssiMvssgurnz59/28/24 Jameson Mcleod NP [address] [address] Nurse IrysrluvlslyTyzwmahya52/28/24 Milton Piña MA [address] [place] [address] Family Izbvjcmh42/10/248Team MemberRelationshipSpecialtyStart DateEnd Date Shaikh Day MD PCP - GeneralInternal Medicine Shaikh Day MD PCP - GeneralInternal Medicine Gerry Godwin MD PCP - GeneralFamily Medicine10/02/2409 Shaikh Day MD [address] [place] [address] PCP - [place]10/13/2411 Unallocated, Olga Nichole MD [address] [place] [place] [address] PCP - GeneralFamily Ssginltn80/22/ Gerry Godwin MD PCP - Generalmily Krwkpnob52/31/24 Gerry Godwin MD [address] [place] [address] PCP - [place]04/11/24 Cindy Collado NP Nurse Pract[facility]erUnity[facility] Centerly Medicine10/03/23 Aime Clark DO [address] [place] [address] Seamoxxsvyfbkg24/21/24 Nakul Zazueta DO [address] [address] Referring XcifsiyhzLrcmumfyu09/28/24 Ynes Snyder NP [address] [place] [address] Nurse MbxljgqszbocYuaygygvc86/28/24 Jameson Mcleod NP [address] [place] [address] Nurse KyhqjdtrwkukIuxtoesyi92/28/24 Milton Piña, [place] [address] [place] [address] Family Vrbdjyyb40/10/248/ Goals (unrecognized section and content) Goals may [...] ON THE PRIMARY CLINICAL RECORDS. [facility]. provides no warranty or guarantee of the accuracy or completeness of information in this document.
== END 2025-01-14 08:59 | disposition home or self-care (01) ==
LOC: MAMMO 08:58
PROVIDERS: PCP Nurse Practitioner; Visit Provider Nurse Practitioner
DX: Z12.31 Encounter for screening mammogram for malignant neoplasm of breast (principal); Z80.3 Family history of malignant neoplasm of breast; Z80.1 Family history of malignant neoplasm of trachea, bronchus and lung; Z80.8 Family history of malignant neoplasm of other organs or systems
CPT/HCPCS: 77063; 77067

== ENCOUNTER 2025-02-09 14:48 | Outpatient (OUT) | payer MEDICARE, SELFPAY ==
--- OUTSIDE RECORDS SUMMARY | 2025-02-09 09:32 | XMS_ITS | Continuity of Care Document ---
Author Organization [facility] Address [address] [place] [address] Phone Care Team Providers Care Education General Manager Name Role Phone Aleena Collado DEVELOPMENTAL SERVICES WORKER-C Primary Care Provider [phone] Aleena Collado DEVELOPMENTAL SERVICES WORKER-C Attending Provider Jessica Ceballos APRN-RADIOLOGY SUPERVISOR-C Attending Provider + Care Teams Patient Care Team Team Status: Active Member Role/Relationship Status Dates Aleena Collado NP-C Primary Care Provider Active Visit Care Team Team Status: Inactive Member Role/Relationship Status Dates Aleena Collado DEVELOPMENTAL SERVICES WORKER-C Primary Care Provider Active Start: November 26, 2024 End: November 26, 2024ANA PalmerCAttensacha ProviderActiveStart: November 26, 2024 End: November 26, 2024 Visit Care Team Team Status: Inactive Member Role/Relationship Status Dates Aleena Collado DEVELOPMENTAL SERVICES WORKER-C Primary Care Provider Active Start: December 03, 2024 End: December 03, 2024EVERETT Dao-CAttending ProviderActive Start: December 03, 2024 End: December 03, 2024 Visit Care Team Team Status: Active Member Role/Relationship Status Dates Aleena Collado NP-C Primary Care Provider Active Start: December 04, 2024 Jessica E Ceballos , PFNB-ENK-SQhnuruqol ProviderActiveStart: December 04, 2024 Visit Care Team Team Status: Inactive Member Role/Relationship Status Dates Aleena Collado DEVELOPMENTAL SERVICES WORKER-C Primary Care Provider Active Start: December 31, 2024 End: December 31, 2024Aleena Collado DEVELOPMENTAL SERVICES WORKER-CAttending ProviderActiveStart: December 31, 2024 End: December 31, 2024 Visit Care Team Team Status: Active Member Role/Relationship Status Dates Aleena Collado DEVELOPMENTAL SERVICES WORKER-C Primary Care Provider Active Start: January 01, 2025 Aleena Collado , DEVELOPMENTAL SERVICES WORKER-CAttending ProviderActiveStart: January 01, 2025 Visit Care Team Team Status: Inactive Member Role/Relationship Status Dates Aleena Collado DEVELOPMENTAL SERVICES WORKER-C Primary Care Provider Active Start: January 19, 2025 End: January 19, 2025Aleena Clolado DEVELOPMENTAL SERVICES WORKER-CAttending ProviderActiveStart: January 19, 2025 End: January 19, 2025 Patient Care Team Team Status: Inactive Member Role/Relationship Status Dates Aleena Collado , DEVELOPMENTAL SERVICES WORKER-C Primary Care Provider Active Start: February 09, 2025 End: February 09, 2025Aleena Collado DEVELOPMENTAL SERVICES WORKER-CAttending ProviderActiveStart: February 09, 2025 End: February 09, 2025 Chief Complaint and Reason for Visit Chief Complaint Admit Date 3M November 26, 2024 9 :05am 3 Month Follow up December 03, 2024 1 1:35am medicare wellness December 31, 2024 10:01am R47.01 January 19, 2025 1 0:15am bowel issues February 09, 2025 1:28pm Reason for Visit Admit Date Dizziness and [...] 31, 2024 10:01am Encounter for subsequent salvador ual wellness visit (AWV) in Medicare patient December 31, 2024 10:01am Essential hypertension December 31 10:01am CRYSTAL (generalized anxiety disorder) Novem 2024 10:01am Migraine with aura and witho ut status migrainosus, not intractable December 31, 2024 10:01am Abdominal pain, LLQ (left lower quadrant ) February 09, 2025 1:28pm Chronic UTI February 09, 2025 1:28pm Dizziness and giddiness February 09, 025 1:28pm Essential hypertension February 09 1:28pm CRYSTAL (generalized anxiety disorder) Decem 2024 1:28pm Allergies, Adverse Reactions, Alerts Allergen Type Severity Reaction Last Updated Verified Status Penicillins Allergy Unknown Rash December 03, 2024 10:30am Y es Active Social History Smoking Status Status Start Date End Date Date of Observa tion Ex-smoker (finding) April 12, 2023 1:09pm Observation Status Observation Response Date of Response Legal Sex [facility] (finding) [facility] Family History Relationship Condition Age at Onset Recorded Date/T darrell father Malignant neoplasm of prostate Unknown Malignant neoplasm of boneUnknownType 2 diabetes mellitusUnknownDeceasedUnknown motherMalignant neoplasm of brainUnknownMalignant neoplasm of breastUnknown DeceasedUnknownsonDown syndromeUnknowndaughterMalignant neoplasm of lungUnknown brotherMyocardial infarctionUnknownType 2 diabetes mellitusUnknownfamily member DeceasedUnknownsisterDeceasedUnknownFamily history of lung cancerUnknown Malignant neoplasmUnknown Problems Active Problems Problem Diagnosis/Recorded Date Onset Date Stat us Abdominal pain, LLQ (left lo wer quadrant) February 09, 2025 2:27pm Unknown Active Symptomatic bradycardia November 21, 2021 3:16am Unkn own Active White matter disease November 03, 2024 7:57am Unkno wn Active Primary progressive aphasia August 13, 2024 1:48pm Unkn own Active Ischemic stroke August 13, 2024 1:49pm Unknown Act abbe Aphasia due to acute stroke April 11, 2018 9:49am Unk nown Active Encounter for subsequent salvador [facility] wellness visit (AWV) in Medicare patient November [...] 2024 5:45amOn potassium wasting diuretic therapy Other supervisor long goods (current) drug therapyPotassium Chloride 10 mEq capsule, extended lzolftsWtdvstbsvdhn22OBKSFKdsvd492Vsengty 2024 5:44amOctober 2024 10:48amOn potassium wasting diuretic therapy Other skilled nursing (current) drug therapyCyanocobalamin (Vitamin B-12) 1,000 mcg oyuuymRwwzqh1276PLHXNHimnl92422Cjuohwju 2024 12:00amCobalamin deficiency Deficiency of other specified B group vitaminsComplies with drug therapy Clonazepam 0.5 mg tabletActive0.5MGPOTwice daily as needed for wexkfsc29771 December 29, 2024 9:41amGeneralized anxiety disorder Generalized anxiety disorderComplies with drug therapyCholecalciferol (Vitamin D3) 125 mcg (5,000 unit) ldpmguJctmqk534WGIIFQfjgs853Tvxmlxdh 2024 12:00am Vitamin D deficiency Vitamin D deficiency, unspecifiedComplies with drug therapyBaclofen 20 mg tablet Admomk66SNEHPivvs times daily as needed for muscle wvktj3560Emhvcwxm 2024 1:14pmMuscle spasm Other muscle spasmComplies with drug therapyAmlodipine 2.5 mg tabletActive2.5MG WSQmmdq221Tiwklnzq 30th, 2025 10:29amPrimary hypertension Essential (primary) hypertensionComplies with drug therapyPotassium Chloride 10 mEq capsule, extended bizqukmTylmsz47UMIOVQncgd953Kpvrfruu 30th, 2025 12:00amOn potassium wasting diuretic therapy Other skilled nursing (current) drug therapyComplies with drug therapyIbuprofen 800 mg OsabwbHymzazcqvucn070UZGGRxhlo times dailyFebruary 2018 12:[facility] 2018 6:51amClonazepam 0.5 mg tabletDiscontinued0.5MGPOTwice dailyFebruary 2018 12:[facility] 2018 6:51amBaclofen 20 mg dqdzayLbkjiexczkbx70NIWMHymfu times dailyFebruary 2018 12:00amSeptember 2024 11:11ammuscle spams Metoprolol Succinate 25 mg Tablet Extended Release 24 RaSdrbmzwnuahl26ORAJOuhbt February 2018 12:[facility] 2018 6:54amLisinopril-Hydrochlorothiazide 10-12.5 mg yejlotBnixvbitzhis1LMZRJLvpbqZgmgdlwh 2018 12:00[facility] 2018 6:54amNaproxen 500 mg DblcmrRphirrnibtta760FSXKHxwzp daily as needed for PainFebruary 2018 12:[facility] 2018 6:51amBaclofen 20 mg tablet Qldlxrwsvxvj97GSLDUumdi times daily as needed for muscle spamsSeptember 2024 11:06amDecember 2024 1:15pmRosuvastatin (Crestor) 10 mg Tablet Nhvyrjwuyddp57XAMSZhputzkVlszmczs 2018 12:00amMarch 2018 6:54am Aspirin 81 mg Tablet,SaxoxrycSwyaddyrqggu73SBBBSostdDlnnfdlq 2018 12:00am December 12, 2018 9:24amAspirin 81 mg Tablet,JkoenfqzAyksghvmywnt06QOTPAqpmn04 April 18, 2018 12:00amFebruary 2019 4:28pmAcetaminophen 325 mg Tablet Honjimjrgpdb691FVCJD0V as needed for Afkq44JrnsvApril 18, 2018 12:00amFebruary 2019 4:28pmDocusate Sodium 100 mg QqdgwmiRecbkmhkwfaq447XRRHGmwni daily as needed for Wjmtffgsmdim66917Mmztp 2018 12:00[facility] 2018 9:29am Ferrous Sulfate 324 mg (65 mg iron) Tablet,Delayed Release (Dr/Ec)Discontinued 324MGPOTwice tkpsx83158Birjc 2018 12:00[facility] 2018 9:28am Metoprolol Succinate 25 mg Tablet Extended Release 24 KxIsbasiijhjvd51NUYPOmxdg 86988Sglwe 2018 6:54amFebruary 2019 4:33pmLisinopril- Hydrochlorothiazide 10-12.5 mg nxypdeFymtjccijkdm5UJVTDRxnji41280Qhutt 2018 6:54amFebruary 2019 4:28pmRosuvastatin (Crestor) 10 mg TabletDiscontinued 51DWEDQyiuhet91691Acnot 2018 6:54amApril 2018 11:00pmApril 2018 11:02pmAcetaminophen 325 mg kxhircZwypnemtfiru809 - 650MGPODaily as needed for HeadacheFebruary 2019 4:28pmFebruary 2023 9:46amAspirin 81 mg tablet,gnadiygkYgcagdpwuwse18NMDHNlzst morningFebruary 2019 4:28pmFebruary 2020 12:03pmcvaLisinopril-Hydrochlorothiazide 10-12.5 mg tablet Elnmyclsblfd0SXJMJIkibz morningbruary 2019 4:28pmFebruary 2023 9:45amhtnMetoprolol Succinate 25 mg tablet extended release 24 uyTgslpgaydvcp78 MGPOEvery morningbruary 2019 4:33pmOctober 2021 12:21pmhtn Trazodone 100 mg tabletDiscontinuedFebruary 2019 12:00amFebruary 2019 5:06pmQuetiapine 50 mg gidcdqWwsbru57RBSZIlhup at bedtimeS[facility] 2019 12:00aminsomniaComplies with drug therapyFerrous Sulfate (Ferosul) 325 mg (65 mg iron) sgacxfKsqdoq531FVSVTcrzhVajcvln 2021 11:00pmComplies with drug therapyFurosemide 20 mg anqdomJnxzbbzindra82PBBO.every other daySchoolcraft [facility] Hospital 2021 11:00pmptember 2024 11:52hc11jd 2 tabsTopiramate 50 mg tablet Fumxsoawydia35MOEBNoxqmClmyrou 2021 11:00pmOctlexington va medical center 2024 9:03am Cephalexin 500 mg ajomqmhZtobzqazwxtt621YEHOVguxd times lfjyi9196Aonydjz 2021 11:00pmFebruary 2023 9:46amCyanocobalamin (Vitamin B-12) (Vitamin B- 12) 2,000 mcg Tablet Extended XzhetbuDfssilnveywa1689QVURHAxtcx20Xokhfpm 12th, 2022 3:44pmFebruary 2023 9:46amFurosemide 20 mg mlwcreZnrhzo05PMAWFbkdh November 08, 2024 11:09amComplies with drug therapyClonazepam 0.5 mg Tablet Discontinued0.5MGPOTwice dailyOctlexington va medical center 2018 11:00pmptember 2024 11:11amClopidogrel (Plavix) 75 mg VedxguOkxepwrfrvtn25KJCMBlawm morningOctober 2018 11:00pmFebruary 2023 9:46amCVAHydrochlorothiazide 12.5 mg EvovcjOqpmyvwiskua20.5MGPOEvery morningOctober 2018 11:00pmFebruary 2020 12:05pmhtnFerrous Sulfate 324 mg (65 mg iron) tablet,delayed release (DR/EC)Zspjaxknppqu779LRDOIUMQJ 2 WEEKSNov2018 9:27amJanuary 2020 12:28pmRosuvastatin (Crestor) 10 mg CcisznWzsuemaqlkrj53AHEYGmnka at bedtimeOct2018 11:00pmFebruary 2023 9:45amhyperlipidemia Clonazepam 0.5 mg tabletDiscontinued0.5MGPOTwice daily as neededSept2024 11:06amNovember 2024 9:42amCetirizine (All Day Allergy (Cetirizine)) 10 mg KevutfZslrfegvzjrh02ABOIWaoqfRqywnlc 2020 12:00amOctober 2021 10:26amallergy symptomsAspirin 81 mg Tablet,Delayed Release (Dr/Ec)Discontinued 81MGPODailyFebruary 2020 12:00amMarch 2023 8:44amCVA prevention Cyanocobalamin (Vitamin B-12) (Vitamin B-12) 2,000 mcg Tablet Extended Release Tmpivyyidgmw5434MBISCFaymjSkuusohw 2020 12:00amOctober 2021 3:44pm Aspirin 81 mg tablet,tgdogeycZbzxjk89FXWQWjynuXulhc 2023 12:00am FreeTextSi tablet Orally Once a day; Note: Source Status: Taking; Provider: Windy Sheikh ( )Complies with drug therapyPotassium Chloride 10 mEq capsule, extended cgntctzQqjrfspkxadp61QRCFISkwqjYhzlwgwm 2023 12:00am November 02, 2024 1:02pmMetoprolol Succinate 25 mg capsule,sprinkle,ER 24hr Kgrqhshuvlmz58DVXYRdmwaEubjmybe 2023 12:00amSeptember 2024 11:11am FreeTextSi capsule Orally Once a day; Note: Source Status: Taking; Provider: Windy Sheikh ( )Amlodipine 2.5 mg tabletDiscontinued2.5MGPODaily April 09, 2023 12:00amDecember 2024 10:30amFreeTextSi tablet Orally Once a day; Note: Source Status: Taking; Provider: Windy Sheikh ( )Rosuvastatin 20 mg rpwafqRuzahj61NUQPBpqroMkqqdupe 2023 12:00am FreeTextSi tablet Orally Once a day; Note: Source Status: Taking; Provider: Windy Sheikh ( )Complies with drug therapyTrospium 60 mg capsule,extended release 22nrBeobfhkoebml31YGIPYpvsnRtaxiqmw 2023 12:00am December 03, 2024 10:51ammust be taken on empty stomach at least 1 hour before a meal/food with water onlyClopidogrel (Plavix) 75 mg rzsdvnKnqueysrnprs65QOLS Pgucf52472Borehmda 2023 12:00amOct2024 9:02amStenosis of carotid artery Occlusion and stenosis of unspecified carotid arteryTrospium 60 mg capsule,extended release 90nuNgxfks12YSMCFdslbYvztxtr 23rd, 2025 10:50ammust be taken on empty stomach at least 1 hour before a meal/food with water only Complies with drug therapyAscorbic Acid (Vitamin C) 500 mg gezeccJaohhq286QHLB DailySept2024 11:00pmComplies with drug therapyCetirizine 10 mg utrsgtYnhdxd29IDQCLltit as neededSept2024 11:00pmComplies with drug therapyMethenamine Hippurate 1 gram balhsvMlywie8TKEHElyqn dailySept2024 11:00pmComplies with drug therapyMetoprolol Succinate 25 mg tablet extended release 24 tdNuflvx89NDIYyehdgSxfrznkca 27th, 2025 11:00pmComplies with drug therapyEstradiol 0.01 % (0.1 mg/gram) oomyhVvgkam0MKLMHGUUG2 Times a week November 07, 2024 11:00pmComplies with drug therapyD-Mannose (Azo D-Mannose) 500 mg capsuleActiveMGPOSept2024 11:00pmComplies with drug therapy Topiramate 50 mg ivpjycZnjkze82LYBNMnlch at bedtimeOct2024 9:03am Complies with drug therapyCephalexin 500 mg ollxfnuQxobax317CLADVqkbh 12 hours February 09, 2025 12:00amComplies with drug therapySulfamethoxazole- Trimethoprim 800-160 mg plbovnHrhuotykgfnf8ASGPVVyams zgjpp3111Arbsy 2023 11:00pmJanuary 2024 10:35amPhenazopyridine (Pyridium) 200 mg tablet Kjktuqndqenc278KRIMLdbrk 8 mdrrd104Ehnvx 2023 11:00pmSeptember 2024 11:10am Immunizations Immunization Event Date Not Given Reason Dose Number Sidewalk Inspector Lot Number Reason(s) Given Vaccine Information Statement (VIS) Detail Administration Location COVID-19 Ad26.COV2.S (Tech21) June 11, 2020 Medical Equipment Device Date Implanted Device Details Orthopaedic fixation plate, non-bioabsorbable, sterile March 31, 2021 ARETHA: ()[id number] Issuing Agency: [facility] Device Id: [id number] bone screw, non-bioabsorbable, non-sterile March 31, 2021UDI: ()[id number] Issuing Agency: [facility] Device Id: [id number] bone screw, non-bioabsorbable, non-sterile March 31, 2021UDI: ()[id number] Issuing Agency: [facility] Device Id: [id number] bone screw, non-bioabsorbable, non-sterile March 31, 2021UDI: ()[id number] Issuing Agency: [facility] Device Id: [id number] bone screw, non-bioabsorbable, non-sterile March 31, 2021UDI: ()[id number] Issuing Agency: [facility] Device Id: [id number] bone screw, non-bioabsorbable, non-sterile March 31, 2021UDI: ()[id number] Issuing Agency: [facility] Device Id: [id number] bone screw, non-bioabsorbable, non-sterile March 31, 2021UDI: ()[id number] Issuing Agency: [facility] Device Id: [id number] bone screw, non-bioabsorbable, non-sterile March 31, 2021UDI: ()[id number] Issuing Agency: [facility] Device Id: [id number]-giqqe carotid artery stentMarch 2023UDI: ()[id number] Issuing Agency: [facility] Device Id: [id number] Expiration Date: 2025-09-10 Lot Number: [id number] patch, animal-derivedFebruary 2020UDI: ()[id number] Issuing Agency: [facility] Device Id: [id number] Expiration Date: 2022-04-15 Lot Number: [id number] Relevant Diagnostic Tests and/or Laboratory Data Laboratory Results Test Collection Date/Time Result Date/Time Result Interpretation Reference Range Result Comment Performing Site Vitamin B12 Level December 04, 2024 6:51am December 04, 2024 6:51am 150 pg/mL Abnormal (applies to non-numeric results) [id number] Performed at: [facility] [id number] b Director: Diony Kim PhD, Phone: [phone] FolateOctober 2024 6:51amOctober 2024 6:51am12.70 ng/mL8.60-58.90 Thyroid Stimulating Hormone GenOctober 2024 6:51amOctober 2024 6:51am1.295 u[iU]/mL0.358-3.23599-Hrzeljd Vitamin D TotalNovember 2024 9:56amNovember 2024 9:56am12.5 ng/mL<20 ng/mL Vit D gydulfthy30-<30 ng/mL Vit D fqwbjssbjxed95-516 ng/mL Vit D sufficient>100 ng/mL Potential Toxicity Cholesterol/HDL RatioNovemb2024 9:56amNovember 2024 9:56am2.03.3 - 4.4 LOW RISK4.4 - 7.1 AVERAGE RISK7.1 - 11.0 MODERATE RISK>11.0 HIGH RISK Magnesium LevelNovember 5 9:56amNove2024 9:56am2.2 mg/dL 1.8-2.4Anion GapJanuary 01, 2025 9:56amNove2024 9:56am10.8 Basophils # (Auto)January 01, 2025 9:56amNove2024 9:56am0.1 10 3/uL0.0-0.1Cholesterol LevelJanuary 01, 2025 9:56amNove2024 9:56am 131 mg/dL<=200Albumin/Globulin RatioN2024 9:56amNove2024 9:56am1.2Basophils (%) (Auto)January 01, 2025 9:56amNove2024 9:56am1.0 %0.2-2.0HDL CholesterolJanuary 01, 2025 9:56amNove2024 9:56am65 mg/dLAbove high -43> or =60 mg/dl - LOW CARDIOVASCULAR RISK<40 mg/dl - HIGH CARDIOVASCULAR RISKAlbuminJanuary 01, 2025 9:56amNove2024 9:56am3.4 g/dL3.4-5.0Eosinophils # (Auto)January 01, 2025 9:56amNove2024 9:56am0.5 10 3/uL0.0-0.7LDL Cholesterol, CalculatedJanuary 01, 2025 9:56amNove2024 9:56am51.0 mg/dL<100 mg/dl VYYMBHO694-220 mg/dl NEAR OR ABOVE SPQAJRW018-481 mg/dl BORDERLINE CQJE732-321 mg/dl HIGH>190 mg/dl VERY HIGHAlkaline PhosphataseJanuary 01, 2025 9:56amNove2024 9:56am93 U/H85-127Tkijratwwqv (%) (Auto)January 01, 2025 9:56amNove2024 9:56am9.2 %Above high normal0.9-7.0Triglycerides LevelJanuary 01, 2025 9:56amNove2024 9:56am79 mg/dL<=150Alanine Aminotransferase (ALT/SGPT) January 01, 2025 9:56amNove2024 9:56am24 U/O24-09Qalemrpuki January 01, 2025 9:56amNove2024 9:56am45.4 %36.0-48.0VLDL CholesterolJanuary 01, 2025 9:56amNove2024 9:56am15.8 mg/dL Aspartate Amino Transf (AST/SGOT)January 01, 2025 9:56amNove2024 9:56am16 U/T95-29HqakrwtoziXdzfvkfw 21st, 2025 9:56amNove2024 9:56am 14.8 g/dL12.0-16.0BUN/Creatinine RatioNove2024 9:56amNove2024 9:56am30.2Immature Granulocyte # (Auto)January 01, 2025 9:56amNove2024 9:56am0.01 10 3/uL0.00-0.03Blood Urea NitrogenJanuary 01, 2025 9:56amNove2024 9:56am19.0 mg/dLAbove high normal7.0-18.0Immature Granulocyte % (Auto)January 01, 2025 9:56amNove2024 9:56am0.2 % 0.0-0.5Calcium LevelJanuary 01, 2025 9:56amNovemb2024 9:56am8.7 mg/dL8.5-10.1Lymphocytes # (Auto)January 01, 2025 9:56amNove2024 9:56am1.9 10 3/uL1.2-3.8Chloride LevelJanuary 01, 2025 9:56amNove2024 9:16qs113 mmol/LAbove high bqimhv38-395Typrbbuwady (%) (Auto)January 01, 2025 9:56amNove2024 9:56am37.9 %20.5-60.0Carbon Dioxide Level January 01, 2025 9:56amNove2024 9:56am28.6 mmol/L21.0-32.0Mean Corpuscular HemoglobinNov2024 9:56amNove2024 9:56am30.0 pg26.7-34.0CreatinineJanuary 01, 2025 9:56amNovemb2024 9:56am0.63 mg/dL0.55-1.02Mean Corpuscular Hemoglobin ConcentJanuary 01, 2025 9:56am January 01, 2025 9:56am32.6 g/dL29.9-35.2Estimated GFR () January 01, 2025 9:56amNove2024 9:56am>60>=60 mL/min/1.73m 2Mean Corpuscular VolumeJanuary 01, 2025 9:56amNove2024 9:56am91.9 fL 81.0-99.0Estimated GFR (Non- AmericanJanuary 01, 2025 9:56amNove2024 9:56am>60>=60 mL/min/1.73m 2Monocytes # (Auto)January 01, 2025 9:56amNove2024 9:56am0.4 10 3/uL0.3-0.8GlobulinJanuary 01, 2025 9:56amNovemb2024 9:56am2.9 g/dLMonocytes (%) (Auto)January 01, 2025 9:56amNove2024 9:56am8.4 %1.7-12.0Glucose LevelJanuary 01, 2025 9:56amNovemb2024 9:56am84 mg/rY61-889Gzhu Platelet VolumeNov2024 9:56amNove2024 9:56am10.2 fL9.5-13.5Potassium LevelJanuary 01, 2025 9:56amNovemb2024 9:56am3.4 mmol/LBelow low normal3.5-5.1 Neutrophils # (Auto)January 01, 2025 9:56amNove2024 9:56am2.2 10 3/uL1.4-6.5Sodium LevelJanuary 01, 2025 9:56amNovemb2024 9:41kl488 mmol/LAbove high jykfzf583-564Ztbypkyisxe (%) (Auto)January 01, 2025 9:56am January 01, 2025 9:56am43.3 %43.0-75.0Total BilirubinJanuary 01, 2025 9:56amNove2024 9:56am0.6 mg/dL0.2-1.0Platelet CountJanuary 01, 2025 9:56amNove2024 9:98mf182 10 3/uLBelow low bcubvt886-286Maupl ProteinJanuary 01, 2025 9:56amNove2024 9:56am6.3 g/dLBelow low normal6.4-8.2Red Blood CountJanuary 01, 2025 9:56amNove2024 9:56am 4.94 10 6/uL4.20-5.40Red Cell Distribution WidthJanuary 01, 2025 9:56am January 01, 2025 9:56am12.9 %11.0-15.0Corrected White Blood CountJanuary 01, 2025 9:56amNove2024 9:56am5.1 10 3/uL4.0-11.0 Vital Signs Vital Reading Result Reference Range Collection Date/Time Height 61 [in_i] November 26, 2024 8:88pbWtdmce03.56 kgNovember 26, 2024 8:08amBody Temperature 98.3 [degF]97.6-99.0November 26, 2024 8:08amHeart Rate80 /koy36-426QnmsbzyNovember 26, 2024 8:08amRespiratory rate16 /wdj81-49Tkytksq 16th, 2025 8:08amOxygen saturation by Pulse ypdwkqgn17 %95-100November 26, 2024 8:08amBP Mjroxmue651 mm[Hg]100-140November 26, 2024 8:08amBP Upwqckdye73 mm[Hg]60-100November 26, 2024 8:08amBMI (Body Mass Index)29.0 kg/v8Nqgeigk 2024 8:62ciGbtcpp18 [in_i]December 03, 2024 10:88efKlwzfj89.94 kgOctlexington va medical center 2024 10:28amHeart Fwpx905 /kru79-366Ofgrydx 2024 10:28amRespiratory rate18 /orx91-38Nxrjkup 2024 10:28amOxygen saturation by Pulse euromdhd43 %95-100Octlexington va medical center 2024 10:28amBP Tpgmxirh414 mm[Hg]100-140October 2024 10:28amBP Wcmkwoajj64 mm[Hg]60-100Octlexington va medical center 2024 10:28amBMI (Body Mass Index)28.7 kg/x3Lmbesgr 2024 10:86kzJbyizj42 [in_i]December 31, 2024 10:29ukGmwwjl46.90 kg December 31, 2024 10:21amBody Upvdqklmjmd59.5 [degF]97.6-99.0[facility]2024 10:21amHeart Rate73 /nsi23-955Pktjqmwu 20th, 2025 10:21amRespiratory rate18 /tsm37-04Rqcaihip 20th, 2025 10:21amOxygen saturation by Pulse gkevcigz23 % 95-100December 31, 2024 10:21amBP Eadismvs866 mm[Hg]100-140Nov2024 10:21amBP Tnyaeiorz11 mm[Hg]60-100Nov2024 10:21amBMI (Body Mass Index)29.1 kg/v1Pdhfwajq 2024 10:21axEungei08 [in_i]February 09, 2025 1:17bdVjxmcu25.00 kgDecember 2024 1:54pmBody Gpmkvhjxeoe41.9 [degF] 97.6-99.0Dece2024 1:54pmHeart Rate85 /uae60-479Puanlrcm 30th, 2025 1:54pmRespiratory rate20 /jhv51-95Mqcqsanb 30th, 2025 1:54pmOxygen saturation by Pulse mkdiffef41 %95-100Dece2024 1:54pmBP Zyqaxlig507 mm[Hg]100-140 February 09, 2025 1:54pmBP Lnrucnxdc03 mm[Hg]60-100De2024 1:54pm BMI (Body Mass Index)28.7 kg/m0VjcpnituFebruary 09, 2025 1:54pm Advance Directives Advance Directive Response Recorded Date/ Time Advance Directives No May 12 3:06pm Insurance Providers Guarantor Ozzie Luna Address [address] [place] [address] Info.Home Phone: Payer Group Member ID Coverage Type Subscriber Relationship to Subscriber Effective Date Expiration Date Medicare Id: [id number] Elliott Id: [id number] [address] [place] [address] Home Phone: Email: DECLINED [phone] Encounters Encounter Location(s) Arrival/Admit Date Discharge/Departure Date Discharge/Departure Disposition Provider(s) Departed Physician/ Provider Office Visit -[facility] Family [facility] [place] November 26, 2024 9:05am November 26, 2024 9:52am Discharged to home care or self care (routine discharge) MOHINDER Palmer Departed Physician/ Provider [facility] December 03, 2024 11:35am December 03, 2024 12:34pm Discharged to home care or self care (routine discharge) EVI Dao Non-patient / Non-visit -[facility] O ctober 2024 7:51am SUZAN Daoeparted Physician/Provider Office Visit-[facility] Family [facility] 2024 10:01amNovember 2024 11:13amDischarged to home care or self care (routine discharge)Wesley Palmer-patient / [facility] 20[facility] 9:56am[facility] 10:15am January 19, 2025 5:00pmDischarged to home care or self care (routine discharge)Aleena Collado NP-CDeparted Physician/Provider Office Visit-[facility] Family Medicine [facility] 2024 1:28pmDece2024 2:30pm Discharged to home care or self care (routine discharge)Aleena Collado NP-C Recent Diagnosis Onset Date Admit Date Dizziness [...] 2024 10:01 am Encounter for subsequent [facility] wellness visit (AWV) in Medicare patient Unknown December 31, 2024 10:01am Essential hypertension Unknown December 31, 2024 10:01am CRYSTAL (generalized anxiety disorder) Unknown December 31, 2024 10:01am Migraine with aura and witho ut status migrainosus, not intractable Unknown December 31, 2024 10:01 am Abdominal pain, LLQ (left lower quadrant) Unknow n February 09, 2025 1:28pm Chronic UTI Unknown February 09, 2 025 1:28pm Dizziness and giddiness Unknown February 09, 2025 1:28pm Essential hypertension Unknown February 09, 2025 1:28pm CRYSTAL (generalized anxiety disorder) Unknown February 09, 2025 1:28pm Assessments Diagnosis Onset Date Resolution Status Admit Date Dizziness and giddiness acuteOctober 2024 9:05amEpisode of recurrent major depressive disorder acuteOctober 2024 9:05amEssential hypertensionacuteOctober 2024 9:05amGAD (generalized anxiety disorder)acuteOctober 2024 9:05amMigraine with aura and without status migrainosus, not intractableacuteOctober 2024 9:05amAtaxiachronicOctober 2024 11:35amGait instabilitychronicOctober 2024 11:35amIschemic strokechronicOctober 2024 11:35amAphasiadeleted December 03, 2024 11:35amDizziness and giddinessacuteDecember 31, 2024 10:01amEncounter for screening mammogram for malignant neoplasm of breastacute December 31, 2024 10:01amEncounter for subsequent annual wellness visit (AWV) in Medicare patientacuteDecember 31, 2024 10:01amEssential hypertensionacute December 31, 2024 10:01amGAD (generalized anxiety disorder)acuteDecember 31, 2024 10:01amMigraine with aura and without status migrainosus, not intractable acuteDecember 31, 2024 10:01amAbdominal pain, LLQ (left lower quadrant)acute February 09, 2025 1:28pmChronic UTIacuteDecember 2024 1:28pmDizziness and giddinessacuteDece2024 1:28pmEssential hypertensionacuteDeceer 2024 1:28pmGAD (generalized anxiety disorder)acuteDece2024 1:28pm Plan of Treatment Author Aleena Collado [facility]redOct[facility] 2024 9:02amPlease check blood pressure daily and [...] be contriubting to ataxia klonopin, seroquel Author Aleena Collado [facility] HospitalAuthoredDecember 2024 8:59amPlease check blood pressure daily and record DASH [...] back on topirimate to 50m/2 tablet daily karynaonojake seroquel Author Jessica Ceballos [facility] HospitalAuthoredNovlittle [facility] 2024 6:04pmThe patient reports gait instability with onset greater than 1 year ago. She previously described it as progressive but more recently states it varies in severity and fluctuates. The patient also had dysmetria of the upper and lower extremities in addition to truncal swaying while seated on physical exam in May 2024. These are not observed today. The patient is taking clonazepam, topiramate, and Seroquel, all of which could contribute to ataxia. MRI of the brain on 03/01/2023 also identified multifocal remote infarcts which could be contributory. MRI did not mention any definitive brainstem atrophy. The patient denies history of alcohol abuse or family history of hereditary ataxia. Updated MRI of brain and MRI of the cervical spine on 06/24/2024 identified no cause for progressive ataxia. Possible differential diagnoses include ataxia due to medication side effects, remote strokes, functional neurologic disorder (FND), adult onset spinal cerebellar ataxia, or a neurodegenerative process such as multiple system atrophy type C. I do not appreciate many parkinsonian features on clinical exam today, but there is some bradykinesia, and the patient reports an intermittent tremor. Given the significant improvement in symptoms when compared to the May 2024 appointment, spinal cerebellar ataxia and MSA-C now seem less likely. I believe there may be a functional component to her symptoms. 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 She completed PT/OT with some subjective benefit previously. PCP has reduced her topiramate dose. PLAN: - Continue at home physical and occupational therapy exercises - Fall prevention measures discussed - As clonazepam, topiramate, and Seroquel can contribute to ataxia, I recommend the patient continue to attempt to reduce doses of these medications with the prescribing provider [...] talking to her since that time. She presented with significant expressive aphasia at a prior appointment which has now drastically improved, and this would not be consistent with a neurodegenerative process such as PPA. Her speech is generally fluent today with limited aphasia and speech errors. I have strong suspicion for FND based on the inconsistent presentation and patient history. Referral to psychiatry and counseling was placed at the prior neurology appointment, but the patient has not followed through with this and refuses to due to so. She believes ST has been very helpful. PLAN: - Continue speech therapy - Psychiatry and counseling referral were strongly recommended again today but refused by the patient. We discussed that these can be very helpful in management of FND - Will keep PPA in mind, as this is not completely excluded, but I have higher suspicion for FND currently - Check labs (vitamin B12, folate, and TSH) to evaluate for other possible causes of cognitive impairment. Re-ordered today - Sleep study was recommended to evaluate for possible sleep-related breathing disorder such as DULCE MARIA but declined by the patient The patient has a history of dizziness. She had a substantial problem in February 2023 and was evaluated at [facility] where she had a CT head, CTA [...] recommendations for carotid artery stenosis - I have counseled the patient on signs and symptoms of stroke and advised the patient to seek immediate evaluation in the emergency department if she develops any of these in the future Diagnoses and treatment plan discussed. The patient and her verbalized understanding and are agreeable to the plan. All questions answered. I have recommended no driving. Author Aleena Collado [facility] HospitalAuthomarina del rey hospitalDecember 31, 2024 2:48pmPlease check blood pressure daily and record DASH [...] conditions allow) follow up yearly and prn discussion regarding code status, reviewed what each means, wants to be a full code at this time order mammogram Future Tests Future scheduled test information is unavailable Pending Tests Test Name Ordered Date Scheduled Date XR acute abdomen series February 09, 2025 2:26 pm Comprehensive Metabolic PanelDecemb2024 2:26pmComprehensive Metabolic PanelDecember 31, 2024 6:08amMM screening mammo BI w/CADDecember 31, 2024 6:09am Future Visits Future appointment information is unavailable Future Procedures Procedure Name Ordered Date Scheduled Date Complete Blood Count Auto Diff February 09 2:26pm C-Reactive ProteinDeceer 2024 2:26pmErythrocyte Sedimentation Rate February 09, 2025 2:26pmVitamin V28Ygunoad 2024 11:31amFolateOctober 2024 11:31amMagnesiumNovember 2024 6:08am Future Medications Future medication information is unavailable Patient Instructions Patient instructions are unavailable
--- OUTSIDE RECORDS SUMMARY | 2025-02-09 14:55 | XMS_ITS | Encounter Summary ---
Author Organization [facility] Address [address] [place] [address] Care Team Providers Care Macaroni Maker Name Role Phone Aleena Collado SCAFFOLD BUILDER Unavailable [phone] Obed Walls DO Unavailable Vish Zazueta DO Unavailable Ynes Snyder SCAFFOLD BUILDER Unavailable Jessica Ceballos SCAFFOLD BUILDER Unavailable [phone] Gerry Godwin MD Primary Care Provider Shaikh PEEWEE Day Unavailable [phone] Encounter Details DateTypeDepartmentCare Team (Latest Contact Info)Ijopfzjzhtf30/22/2025bstract [facility] [address] [place] [address] Stella Adams MA Social History Tobacco UseTypesPacks/DayYears UsedDateSmoking Tobacco: FormerCigarettesPassive Smoke Exposure: CurrentSmokeless Tobacco: NeverAlcohol UseStandard Drinks/Week CommentsNever0 (1 standard drink = 0.6 oz pure alcohol)B1300 Health Literacy AnswerDate RecordedHow often do you need to have someone help you when you read instructions, pamphlets, or other written material from your doctor or pharmacy? Jixvovofx21/16/2024Humiliation, Afraid, Rape, and Kick questionnaireAnswerDate RecordedWithin the last year, have you been afraid of your partner or ex-partner?No01/27/2024Within the last year, have you been humiliated or emotionally abused in other ways by your partner or ex-partner?No01/27/2024 Within the last year, have you been kicked, hit, slapped, or otherwise physically hurt by your partner or ex-partner?No01/27/2024Within the last year, have you been raped or forced to have any kind of sexual activity by your part ner or ex-partner?No01/27/2024Social Connection and Isolation PanelAnswerDate RecordedIn a typical week, how many times do you talk on the phone with family, friends, or neighbors?Once a week01/27/2024How often do you get together with friends or relatives?Once a week01/27/2024How often do you attend hoahaoism or mandaeism services?Never01/27/2024o you belong to any clubs or organizations such as hoahaoism groups, unions, fraternal or athletic groups, or school groups?No 01/27/2024How often do you attend meetings of the clubs or organizations you belong to?Never01/27/2024re you , , , , never , or living with a partner?Destsuv3501/27/2024UDIT-CAnswerDate RecordedQ1: How often do you have a drink containing alcohol?Never01/27/2024Q2: How many drinks containing alcohol do you have on a typical day when you are drinking? Patient does not drink01/27/2024Q3: How often do you have six or more drinks on one occasion?Never01/27/2024Overall Financial Resource Strain (CARDIA)AnswerDate RecordedHow hard is it for you to pay for the very basics like food, housing, medical care, and heating?Not hard at all01/27/2024HQ-2AnswerDate Recorded Patient Health Questionnaire-2 Nzlml526Finlifepoint hospitals [place] of Occupational Health - Occupational Stress QuestionnaireAnswerDate RecordedDo you feel stress - tense, restless, nervous, or anxious, or unable to sleep at night because your mind is troubled all the time - these days?Not at all01/27/2024Exercise Vital SignAnswerDate RecordedOn average, how many days per week do you engage in moderate to strenuous exercise (like a brisk walk)?0 days01/27/2024On average, how many minutes do you engage in exercise at this level?0 min01/27/2024Hunger Vital SignAnswerDate RecordedWithin the past 12 months, you worried that your food would run out before you got the money to buymore.Never true01/27/2024 Within the past 12 months, the food you bought just didn't last and you didn't have money to get more.Never true01/27/2024RAPARE - TransportationAnswerDate RecordedIn the past 12 months, has lack of transportation kept you from medical appointments or from getting medications?No01/27/2024In the past 12 months, has lack of transportation kept you from meetings, work, or from getting things needed for daily living?No01/27/2024Housing Stability Vital SignAnswerDate RecordedIn the last 12 months, was there a time when you were not able to pay the mortgage or rent on time?No01/27/2024In the past 12 months, how many times have you moved where you were living?t any time in the past 12 months, were you homeless or living in a prison (including now)?No01/27/2024 CommentsUnknownSex and Gender InformationValueDate RecordedSex Assigned at BirthNot on fileLegal FifSiwnbr78/15/2023 6:38 PM EDTGender IdentityNot on fileSexual OrientationNot on filedocumented as of this encounter Plan of Treatment DateTypeDepartmentCare Team (Latest Contact Info)Addvotzzzna79/12/2026 2:30 PM ESTOffice Visit [facility] [address] [place] [phone] Obed Walls, DO [address] [place] [address] documented as of this encounter Visit Diagnoses Not on filedocumented in this encounter Additional Health Concerns AssessmentNoted TimePHQ-9 Depression Total Score: 6:24 PM EDTA fall risk assessment has been completed for the tkigjyb0401/27/2024 9:56 AM EST documented as of this encounter Care Teams Team MemberRelationsKaiser Permanente Medical CenterpecialtyStdodge DateEnd Date Gerry Godwin MD [address] [place] [address] PCP - GeneralFamily Bvzjotmj87/31/24 Shaikh Day MD [address] [place] [address] PCP - Donald MO10/12/24 Aleena Collado NP Nurse PractitionerFamily Medicine10/03/23 Obed Walls DO [address] [facility] [place] [address] Rvywbgheyppjpo76/21/24 Vish Zazueta DO [address] [address] Referring HzqzolktkBqslwbyae78/28/24 Ynes Snyder NP [address], [place] [address] Nurse HkkeemsgukuwVaytltvnf22/28/24 Jessica Ceballos NP [address] [place] [address] Nurse AdialshwahwgIihewzraw77/28/24documented as of this encounter
--- OUTSIDE RECORDS SUMMARY | 2025-02-09 14:55 | XMS_ITS | Clinical Summary ---
Author Organization [facility] Address [address] [place] [address] Care Team Providers Care Casket Liner Name Role Phone Aleena Collado ALLERGIST/MD Unavailable [phone] Obed Walls DO Unavailable [phone] Vish Zazueta DO Unavailable Ynes Snyder ALLERGIST/MD Unavailable [phone] Jessica Ceballos ALLERGIST/MD Unavailable [phone] Gerry Godwni MD Primary Care Provider [phone] Shaikh PEEWEE Day Unavailable [phone] Allergies Active AllergyReactionsCriticalityNoted DateCommentsPenicillin GUnknown 5164FwoffyhrrxzJqrpEae13/09/2008 Medications MedicationSigDispense QuantityRefillsLast FilledStart DateEnd DateStatus furosemide [...] weeks, then 3 (THREE) times per week mqmoffvhxd77/19/2025Active methenamine hippurate (Hiprex) 1 g tablet Take [...] MG tablet Indications:Atherosclerosis of coronary artery of [place] heart, unspecified vessel or lesion type, unspecified [...] recurrent major depressive disorder 08/11/2024Recurrent UTI02/26/2024Heart failure, dgrenyahqod74/10/2024 Assessment & Plan (01/21/2024 11:51 AM EST): Current meds: lasix, bblocker, crestor and amlodipine Does follow with [facility] cardiology Does have LE edema noted as well today, no dyspnea Peripheral vascular disease, pbkndkucaas15/10/2024 Assessment & Plan (01/21/2024 6:37 AM EST): [...] (01/21/2024 6:46 AM EST): Takes baclofen Iron gxrleqxkjn50/10/2024 Assessment & Plan (01/21/2024 10:42 AM EST): Labs stable, cont current meds Psychophysiological vbejuitu82/10/2024 Assessment & Plan (08/11/2024 5:55 PM EDT): [...] bactrim by Fawwad 02/20/23 ecoli White matter vcvadzg7209/11/2023Incontinence without sensory vmjugpedy51/31/2024 Oropharyngeal vzshybtvx94/10/2024 Assessment & Plan (10/22/2023 11:19 AM EDT): [...] drinking thin liquid Medicare annual wellness visit, tnjhisrzlr65/22/2024 Assessment & Plan (2023 7:16 PM EDT): Patient here for Medicare Wellness. Reviewed medical, surgical and social history. Reviewed medication list. Patient screened for depression, fall risk, cognitive impairment. Patient provided appropriate education on chronic medical conditions, prescription medications. Patient's health related questions and concerns addressed and answered. Colonoscopy 2021- no need for repeat. Encounter for screening mammogram for breast egfdkx8606/03/2023izziness and /03/2024 Assessment & Plan (05/12/2024 7:04 AM EDT): [...] rehab Impaired mobility and activities of daily fbxvxv3203/14/2023 Assessment & Plan (05/12/2024 7:05 AM EDT): Continue with home health Assessment & Plan (02/27/2024 4:19 PM EST): Was getting HH, would benefit from continued services Xydepppclw55/10/2024History of cerebrovascular accident (CVA) with residual gbdshxl0302/20/2023 Assessment & Plan (02/27/2024 4:19 PM EST): Would benefit from continued home health services, she relies heavily on her to help with her ADL's Other rjbcqujzfhfwsq85/10/2024rimary vtlylcmtvdvy02/10/2024 Assessment & Plan (08/11/2024 7:41 AM EDT): [...] with aura and without status migrainosus, not zprhnbaworh25/10/2024 Assessment & Plan (01/21/2024 6:46 AM EST): [...] culture. Will also refer to Urology. Mixed temomyokxtvclw72/09/2022 Overview (02/20/2023): Last Assessment & Plan: Lipid abnormalities are well controlled, continue crestor Coronary gucegzgfeucxvxm01/10/2021 Overview (02/20/2023): Images from the original note [...] EDT): Crestor, toprol and ASA Carotid artery mybknkaf22/13/2021 Overview (05/15/2023): Images from the original note [...] EDT): Would like a more local neurologist Euuwispiwtikqq18/27/2008 Resolved Problems ProblemNoted DateDiagnosed DateResolved DateAcute diffuse otitis externa of both ears/02/2024 Assessment & Plan (2024 12:41 PM EDT): No evidence of TM perforation Will prescribe atb drops, for 10 days, if not better fu in office UTI sfvqarsd58/02/2024 Overview (01/21/2024): Cheri [id number] LOT #[id number] EXP DATE: 02/11/2024 Assessment & Plan (01/21/2024 11:53 AM EST): Treat with macrobid, send for [facility] trax culture Acute cystitis without brchkelff96 Overview (10/30/2023): 10/30/23 klebsiella, tx w bactrim Urinary tract infection Assessment & Plan (2023 7:21 PM EDT): [...] needed. Recurrent major depressive disorder, in full ccwsqxqjo38/02/2024 Assessment & Plan (01/21/2024 6:39 AM EST): [...] cough, Azithromycin for antibacterial coverage. PCN allergic. Qabtaakzhoth71 Overview (02/20/2023): Last Assessment & Plan: Hypertension is elevated, currently will increase lasix to daily and increase potassium, Repeat BMPin 1 week Continue norvasc 2.5 mg Renal function normal Encounters DateTypeDepartmentCare IociZekzhnrzauw34/22/2025bstract [facility] [address] [place] [address] Stella Adams MA 01/28/2025Telephone [facility] [address] [place] [address] Stella Adams MA from Last 3 Months Immunizations ImmunizationAdministration DatesNext OneQLG85Influenza, High Dose Seasonal, Preservative Free12/22/2018Influenza, High-dose Seasonal, Quadrivalent, Preservative Free12/09/2019Influenza, Seasonal, Quadrivalent, Gqtcnfftoh21/14/2023,01/20/2022,11/26/2020Influenza, Qgkkmiguzcy78/28/2024, 11/24/2022,01/20/2022,11/26/2020,12/09/2019,12/22/2018,03/25/2001Influenza, seasonal, wzbzfmggje63/12/2002Influenza, trivalent, dfowhleqpu41/28/2024Novel irzycutyd-I8J4-03, preservative-free02/17/2009Pneumococcal Conjugate PCV 20 11/24/2022RSV, recombinant, protein [...] other written material from your doctor or pharmacy?Lyddnqtch68/16/2024Humiliation, Afraid, Rape, and Kick questionnaireAnswerDate RecordedWithin the [...] relatives?Once a week01/27/2024How often do you attend episcopalian or sikhism services?Never01/27/2024o you belong to any clubs or organizations such as episcopalian groups, unions, fraternal or athletic groups, or school groups?No01/27/2024How often do you attend meetings of the clubs or organizations you belong to?Never01/27/2024re you , , , , never , or living with a partner?Tzoyxqn9501/27/2024UDIT-C AnswerDate RecordedQ1: How often do you have [...] hard at all01/27/2024 PHQ-2AnswerDate RecordedPatient Health Questionnaire-2 Joegf285[facility] [place] of Occupational Health - Occupational Stress QuestionnaireAnswerDate [...] were you homeless or living in a assisted (including now)?No01/27/2024CommentsUnknownSex and Gender InformationValueDate RecordedSex Assigned at BirthNot on fileLegal SexFemale 04/25/2022 6:38 PM EDTGender IdentityNot on fileSexual OrientationNot on file Last Filed Vital Signs Vital SignReadingTime TakenCommentsBlood Iwadsfym426/6607 9:10 AM EDT Mjjfq6689 9:10 AM TZHNoqjytlhchd26.6 ??C (97.8 ??F)08/11/2024 9:10 AM EDTRespiratory Nagy099008/11/2024 9:10 AM EDTOxygen Qovkebyttp10%08/11/2024 9:10 AM EDTInhaled Oxygen Concentration--Wfxqhu20 kg (158 lb 12.8 oz)08/11/2024 9:10 AM ATQUofahj604.9 cm (5' 1 )01/21/2024 9:55 AM ESTBody Mass Qnjct9665/10/2024 9:55 AM EST Plan of Treatment DateTypeDepartmentCare Team (Latest Contact Info)Isbnyohjdkr48/12/2026 2:30 PM ESTOffice Visit [facility] [address] [place] [phone] Obed Walls, DO [address] [place] [address] Health MaintenanceDue DateLast TxpdIdheulwrGynmjucmycqIwxugaclizej79/01/2022, 04/01/2022Colorectal Cancer ScreeningDiscontinuedPneumococcal Vaccine: 65+ Years Aijokzbnn52/14/2023Influenza VhaxlkjIsiotbjax18/26/2025, 11/09/2023, 11/09/2023, Additional history existsCT ColonographyDiscontinuedFIT-DNADiscontinuedFIT DiscontinuedFOBTDiscontinuedSigmoidoscopyDiscontinued Insurance Care Teams Team MemberRelationshipSpecialtyStart DateEnd Date Gerry Godwin MD [address] [place] [address] PCP - GeneralFamily Gpphwbmd66/31/24 Shaikh Day MD [address] [place] [address] PCP - [facility] [place]10/12/24 Aleena Collado NP Nurse PractitionerFamily Medicine10/03/23 Obed Walls DO [address] [place] [address] Niqvlryroxfwoz44/21/24 Vish Zazueta DO [address] [address] Referring ZozgqjdlvYkgucoowm85/28/24 Ynes Snyder NP [address], [place] [address] Nurse WavxdofqjlcpPnjqckohl99/28/24 Jessica Ceballos NP [address] [facility] [address] [place] [address] Nurse ChjexounsdeeGxknfqhoy27/28/24
--- OUTSIDE RECORDS SUMMARY | 2025-02-09 14:55 | XMS_ITS | Clinical Summary ---
Author Organization [facility] Address [facility] [place] [address] Care Team Providers Care Feather Maker Name Role Phone Aneesh Ramirez MD Primary Care Provid er Allergies Active AllergyReactionsCriticalityNoted UkwhFubqrmonVpwutpnstorXwlm48/09/2008 Medications MedicationSigDispense QuantityRefillsLast FilledStart DateEnd DateStatus hydrochlorothiazide [...] needed (for pain.).ctive Active Problems ProblemNoted DateDiagnosed LrsjSlcabzrolugl25/12/2010Reflex sympathetic dystrophy of the lower limb04/09/2007Knee joint replacement by other means 04/09/2007Osteoarthrosis, unspecified whether generalized or localized, lower leg04/09/2007Contusion of knee04/09/2007Tear of medial cartilage or meniscus of knee, qxkfctz8204/09/2007 Family History Medical HistoryRelationCommentsIschemic Heart DiseaseBrotherMigraine [Other] DaughterCancerFatherBoneIschemic Heart DiseaseFatherbrain tumor [Other]Maternal GrandmotherCancerMotherBreast with metastases to brain?SeizuresOthergrandson and granddaughter with seizuresRelationStatusCommentsBrotherDaughterFatherMaternal GrandmotherMotherOther Social History Tobacco UseTypesPacks/DayYears UsedDateSmoking Tobacco: AbncqhYnpprqisne61 02/11/1979 - 02/11/1989 Comments:SMOKED 1/2 TO 3/4 P ACK OF CIGARETTES DAILY Alcohol UseStandard Drinks/WeekCommentsNo0 (1 standard drink = 0.6 oz pure alcohol)CommentsNoSex and Gender InformationValueDate RecordedSex Assigned at BirthNot on fileLegal XlxNpbblo90/02/2012 9:33 AM ESTGender Identity Not on fileSexual OrientationNot on file Last Filed Vital Signs Vital SignReadingTime TakenCommentsBlood Vmbkrjew987/60008/10/2011 8:10 AM EDT Vwxde02227/29/2012 8:10 AM PMYExnairfctwd90.1 ??C (98.7 ??F)07/01/2009 7:00 AM EDTRespiratory Mjgk802607/01/2009 7:00 AM EDTOxygen Skstezxzvs34%07/01/2009 7:00 AM EDTInhaled Oxygen Concentration--Nvsvqu25.2 kg (212 lb)08/10/2011 8:10 AM EDT Tubexy547.9 cm (5' 1 )08/10/2011 8:10 AM EDTBody Mass Index40.0608/10/2011 8:10 AM EDT Plan of Treatment Health MaintenanceDue DateLast DoneCommentsAnxiety Dppdcbqaq99/23/1967Depression Buthrhhaz39/23/1967Hepatitis C Wrilqvlol17/23/1967DTaP,Tdap,Td Vaccine (1 - Tdap)06/04/1967Pneumococcal Vaccine: 50+ (1 of 1 - PCV)1998Shingrix Vaccine (1 of 2)1998Diabetes Bxzhyccau43/19/, 06/29/2009, 06/22/2009one Density Xwrfznbls75/23/2014RSV Vaccine (1 - 1-dose 75+ series) 4Advance Directive Kxuunauqeu86/01/2025Covid-19 Vaccine ( season)2024Influenza Vaccine (#1)2024 Medical Devices ImplantedTypeAreaManufacturerDevice IdentifierShelf Expiration DateModel / Serial / LotCement Bone Simplex P W/ Tobramycin 1gm - [id number] Implanted:Qty: 5 on 06/28/2009 at [facility] / PuttyHOWMEDICA 01/10/[id number] / / [id number] Restrictor Revision [place] - [id number] Implanted:Qty: 1 on 06/28/2009 at [facility] [id number] / / Femur Post Aug Traith 5mm Sz 3 - [id number] Implanted:Qty: 1 on 06/28/2009 at [facility] WNCVMXKEZZU52/28/[id number] / [id number] / XSNRRestrictor Cement W/Insertor - [id number] Implant[id number] / Insert Tri Tib Ps X3 Sz3 11mm - [id number] Implanted:Qty: 1 on 06/28/2009 at [facility]: Bone - Knee [facility] LAYVUQEVQXZ86/24/[id number] / / MJAJJAInsert Tri Tib Ps X3 Sz3 13mm - [id number] Implanted:Qty: 1 on 06/28/2009 at [facility]: Bone - Knee [facility] POAPOCNYLEA45/01/[id number] / / [id number] Femur Comp Rt Sz 3 - [id number] Implanted:Qty: 1 on 06/28/2009 at [facility] MEANJWYUAZF25/28/[id number] / [id number] / XTIXStem Triath Cemented 15x50 - [id number] Implanted:Qty: 1 on 06/28/2009 at [facility] PVWRSVPLOOV39/15/[id number] / [id number] / [id number] Triathlon Cement 70l43uc - [id number] Implanted:Qty: 1 on 06/28/2009 at [facility] NEOAEFUPIHQ91/28/[id number] / [id number] / [id number] Post Aug Traith 5mm Sz 3 - [id number] Implanted:Qty: 1 on 06/28/2009 at [facility] PKUDSVBNVRY73/28/[id number] / [id number] / XTAYFemur Distal Aug Rt 15mm Sz 4 - [id number] Implanted:Qty: 1 on 06/28/2009 at [facility] JSKNCZLMWEL48/03/[id number] / [id number] / WPOCFemur Distal Aug Rt 15mm Sz 4 - [id number] Implanted:Qty: 1 on 06/28/2009 at [facility] ILCRBXITLCX47/26/[id number] / [id number] / XWDFBaseplate Triathlon Ts Sz3 - [id number] Implanted:Qty: 1 on 06/28/2009 at [facility] 04/17/[id number] / [id number] / ARYG Procedures Procedure NamePriorityDate/TimeAssociated DiagnosisCommentsBASIC METABOLIC PANEL Svesung8506/29/2009 12:47 AM EDT from Last 3 Months or Most Recently Relevant to Health Maintenance Results * (ABNORMAL) BASIC METABOLIC PNL (06/29/2009 12:47 AM EDT)ComponentValueRef RangeTest MethodAnalysis TimePerformed AtPathologist ApyyfhimlDjupxwc212(H)65 - 100 mg/dLBUCYRUS [facility]IN BBYUVDIIKGZOA573 - 25 mg/dLCINCINNATI [facility] LABORATORYCreatinine0.53(L)0.70 - 1.40 mg/dLCINCINNATI [facility] EFFLKRKZGIOajmye197906 - 148 mmol/LCMARTIN [facility]ORIAL [facility] LABORATORYPotassium 4.03.5 - 5.0 mmol/LCMARTIN MEMORIAL HOSPITAL [facility] NFWKQXYKTXLttmyzrs70485 - 110 mmol/L [facility] SXAQHIUPGFXE496(L)23 - 32 mmol/LCMARTIN MEMORIAL HOSPITAL MAIN LABORATORYAnion Byv091 - 15 mmol/LCMARTIN MEMORIAL HOSPITAL MA[facility] LABORATORYCalcium7.6 (L)8.5 - 10.5 mg/dLBUCYRUS [facility] LABORATORYSpecimen (Source)Anatomical Location / LateralityCollection Method / VolumeCollection TimeReceived Time Blood specimen (specimen)BLOOD SPECIMEN / Sjzqgaw7006/29/2009 12:47 AM EDT Narrative Authorizing ProviderResult TypeResult StatusJimy Wan MDLABORATORYFinal ResultPerforming OrganizationAddressCity/State/ZIP CodePhone Number [facility] [address] [place] [address] from Last 3 Months or Most Recently Relevant to Health Maintenance Care Teams Team MemberRelationshipSpecialtyStart DateEnd Date Aneesh Ramirez MD [address] [place] [phone] PCP - General07/24/07
--- OUTSIDE RECORDS SUMMARY | 2025-02-09 14:55 | XMS_ITS | Clinical Summary ---
Author Organization [facility] Address [address] [facility] [place] [address] Care Team Providers Care Beauty Counselor Name Role Phone Steve Junior MD Unavailable [phone] Source Comments The following information is NOT included in Care Everywhere downloads:Psychiatric notes, ECG results, Cardiac Rehab notes, Pulmonary Function notes, data from SmartForms (includes but not limited toPregnancy data,audiograms, eye exams, pre-surgical evaluation notes, well-child exam data).[facility] Active Problems ProblemNoted DateDiagnosed Date([facility]) RT CONTUSION OF KNEE07/06/2010([facility]) RT TEAR OF MEDIAL CARTILAGE OR MENISCUS OF KNEE, QZOQUAO0907/06/2010([facility]) RT OSTEOARTH NOS-L/LEG07/06/2010 Social History Tobacco UseTypesPacks/DayYears UsedDateSmoking Tobacco: Never Assessed CommentsUnknownSex and Gender InformationValueDate RecordedSex Assigned at Not on fileLegal MpvLjxzqe30/04/2012 8:27 AM ESTGender IdentityNot on fileSexual OrientationNot on file Plan of Treatment Health MaintenanceDue DateLast DoneCommentsHepatitis C Wucpkqsf02/23/1967Tdap Xwpvdvk7106/03/1966Hepatitis A (HAV) Vaccine (optional start 19+ years)06/04/1967 Tetanus (Td or Tdap) Lxbtwjl4606/04/1967Pneumococcal Vaccine(s) (50+ yrs) (1 of 1 - PCV)1998Shingles (RZV) Vaccine (1 of 2)1998Hepatitis B (HBV) Vaccine (optional start 60+ years)2008one Ndgmpbnvflia18/23/2014RSV vaccine (adult) (1 - 1-dose 75+ series)4COVID-19 Vaccine (2024-26 season)2024Influenza Vaccine (#1)2024Pap SmearDiscontinued Insurance Care Teams Team MemberRelationshipSpecialtyStart DateEnd Date Steve Junior MD [address] [phone] 05/10/10
--- OUTSIDE RECORDS SUMMARY | 2025-02-09 14:55 | XMS_ITS | Clinical Summary ---
Author Organization [facility] Address [address] [place] [address] Phone Care Team Providers Care Technology Education Teacher Name Role Phone Unavailable Primary Care Provider Unavailabl e Social History Tobacco UseTypesPacks/DayYears UsedDateSmoking Tobacco: Never Assessed CommentsUnknownSex and Gender InformationValueDate RecordedSex Assigned at Not on fileLegal VrgLzjaix02/25/2022 9:42 AM ESTGender IdentityNot on fileSexual OrientationNot on file Plan of Treatment Not on file
--- OUTSIDE RECORDS SUMMARY | 2025-02-09 14:55 | XMS_ITS | Clinical Summary ---
Author Organization [facility] Address [id number] [place] [address] Care Team Providers Care Associate Art Director Name Role Phone Gerry Godwin MD Primary Care Provider [phone] Allergies Active AllergyReactionsCriticalityNoted FbhhLpsncsqnQiazbuexrrp58/23/2019 Medications MedicationSigDispense QuantityRefillsLast FilledStart DateEnd DateStatus metoprolol [...] by mouth.02/13/2023ctive Active Problems ProblemNoted DateDiagnosed DateHLD (hyperlipidemia)07/02/20236714Zlzkrzxju43/08/2024 Essential /08/2024Migraine with aura and without status migrainosus, not lmzmuzknghw14/10/2024ecurrent major depressive disorder, in full hodavxfbq67/10/2024oronary yzfprsuayhxfzlq36/10/2021 Overview (07/02/2023): Images from the original note [...] tolerated and continue all medications. Carotid artery ydbzbywq57/13/2021 Overview (07/02/2023): Images from the original note [...] statin. Status post placement of implantable loop wtlsbgyq54/26/2019 Overview (06/17/2018): Medtronic Loop CVA (cerebral vascular accident)04/05/2018 Immunizations No known immunizations Family History Medical HistoryRelationNameCommentsHeart givwhxZwfejphd8LlcvdiPezpjoHvwud Tumor TyrroxBwzmeujaAoniWvaupnEsvvkuidTyrcewnu2ZxnrpouePphefhFqcscqpjYsquoeQeidvzlm Social History Tobacco UseTypesPacks/DayYears UsedDateSmoking Tobacco: FormerCigarettes Smokeless Tobacco: NeverAlcohol UseStandard Drinks/WeekCommentsNo0 (1 standard drink = 0.6 oz pure alcohol)AUDIT-CAnswerDate RecordedFrequency of Alcohol VycifraiborNhunu06/23/2019Average Number of DrinksNot on file04/05/2018Frequency of Binge DrinkingNot on file04/05/2018PHQ-2AnswerDate RecordedTotal Score7 4ChildcareAnswerDate NtxifewwKglndmvpzXmknqfg93/05/2019EmploymentAnswer Date OimdupvyRafsibmsiwWecmxdx39/05/2019Purpose - LifeAnswerDate RecordedPurpose and direction in aqjqFcngulf33/12/2021CommentsNoSex and Gender InformationValueDate RecordedSex Assigned at BirthNot on fileLegal SexFemale 04/05/2018 8:14 AM ESTGender IdentityNot on fileSexual OrientationNot on file Last Filed Vital Signs Vital SignReadingTime TakenCommentsBlood Ftubwczm863/6405 8:53 AM EDT Rdqjk163907/02/2023 8:53 AM ONLLdvxxcgwqtm52.5 ??C (97.7 ??F)07/24/2018 12:23 PM EDTRespiratory Xfqf252907/24/2018 12:23 PM EDTOxygen Aaottmgbok87%07/24/2018 12:23 PM EDTInhaled Oxygen Concentration--Aucygm46.4 kg (137 lb 8 oz)07/02/2023 8:53 AM BJOJhifts655.4 cm (5')07/02/2023 8:53 AM EDTBody Mass Index26.85007/02/2023 8:53 AM EDT Plan of Treatment Health MaintenanceDue DateLast DoneCommentsZoster (Shingles) Vaccine (1 of 2) 1998Fall Risk Qrmfllvba56/23/2014Depression Nenokwuzw06/08/2023 Tobacco Yfkaaguty19/OVID-19 Vaccine (2 - season) /02/2020Influenza Unhagun26/, 01/20/2022, 11/26/2020, Additional history existsDTaP,Tdap and Td Vaccines (2 - Tdap) /SV ( or age 60+ yrs)Pylvyuiqb43/14/2023 Goals GoalPatient Goal TypeAssociated ProblemsRecent ProgressPatient-Stated?Author safe [...] Serial / LotSys Crd Rvl Linq Rpl [id number] - [id number] - [id number] [facility]plant[facility] MEDTRONIC CARD RHYTHM CXRIKOT4403/10/2019LINQSYS / [id number] / Insurance Advance Directives * Full Code (Latest Code Status on File) Date ActivatedDate InactivatedComments07/22/2018 6:33 AM6 4:48 PM * Full Code Date ActivatedDate InactivatedComments04/05/2018 3:35 PM2 5:18 PM * Full Code Date ActivatedDate InactivatedComments04/05/2018 10:14 AM04/05/2018 3:35 PM Care Teams Team MemberRelationshipSpecialtyStart DateEnd Date Gerry Godwin MD PCP - GeneralFamily Medicine04/07/18
--- OUTSIDE RECORDS SUMMARY | 2025-02-09 14:55 | XMS_ITS | Encounter Summary ---
Author Organization [facility] Address [address] [place] [address] Care Team Providers Care Tourist Agent Name Role Phone Aleena Collado VEHICLE DAMAGE APPRAISER Unavailable [phone] Obed Walls DO Unavailable [phone] Vish Zazueta DO Unavailable Ynes Snyder VEHICLE DAMAGE APPRAISER Unavailable [phone] Jessica Ceballos VEHICLE DAMAGE APPRAISER Unavailable [phone] Gerry Godwin MD Primary Care Provider [phone] Shaikh PEEWEE Day Unavailable [phone] Encounter Details DateTypeDepartmentCare Team (Latest Contact Info)Xifszfvxdpd64/18/2025Telephone [facility] [address] [place] [address] Stella Adams MA Social History Tobacco UseTypesPacks/DayYears UsedDateSmoking Tobacco: FormerCigarettesPassive Smoke Exposure: CurrentSmokeless Tobacco: NeverAlcohol UseStandard Drinks/Week CommentsNever0 (1 standard drink = 0.6 oz pure alcohol)B1300 Health Literacy AnswerDate RecordedHow often do you need to have someone help you when you read instructions, pamphlets, or other written material from your doctor or pharmacy? Mxvjheuvy44/16/2024Humiliation, Afraid, Rape, and Kick questionnaireAnswerDate RecordedWithin the [...] relatives?Once a week01/27/2024How often do you attend nondenominational or anglican services?Never01/27/2024o you belong to any clubs or organizations such as nondenominational groups, unions, fraternal or athletic groups, or school groups?No 01/27/2024How often do you attend meetings of the clubs or organizations you belong to?Never01/27/2024re you , , , , never , or living with a partner?Ibsrntv3001/27/2024UDIT-CAnswerDate RecordedQ1: How often do you have a [...] hard at all01/27/2024HQ-2AnswerDate Recorded Patient Health Questionnaire-2 Gvehj204[facility] [place] [facility] - Occupational Stress QuestionnaireAnswerDate [...] homeless or living in a custodial (including now)?No01/27/2024 CommentsUnknownSex and Gender InformationValueDate RecordedSex Assigned at BirthNot on fileLegal JnoSstfox01/15/2023 6:38 PM EDTGender IdentityNot on fileSexual OrientationNot on filedocumented as of this encounter Miscellaneous Notes * Telephone Encounter - Stella Adams MA - 01/29/2025 9:11 AM EST LM for patient to call back and schedule * Telephone Encounter - Stella Adams MA - 01/28/2025 9:06 AM EST Patient called in wanting to be seen for dysphagia. She was seen once in 11/2023 for this. She cancelled her follow up appointment due to no transportation at the time. She was going to be going overher esophagram and MBS. Patient mentioned she just finished therapy for swallowing (last ST mary anne is from 01/19/25). Her testing back from Nov [address] notes are in [facility]. Patient says she is still having issues. Will Dr Walls want any new testing before patient is seen or is she ok to get back on the schedule? documented in this encounter Plan of Treatment DateTypeDepartmentCare Team (Latest Contact Info)Xtmuspihjdp51/12/2026 2:30 PM ESTOffice Visit [facility] [address] [place] [address] Obed Walls DO [address] [place] [address] documented as of this encounter Visit Diagnoses Not on filedocumented in this encounter Additional Health Concerns AssessmentNoted TimePHQ-9 Depression Total Score: 6:24 PM EDTA fall risk assessment has been completed for the gwzxgil7701/27/2024 9:56 AM EST documented as of this encounter Care Teams Team MemberRelationshipSpecialtyStart DateEnd Date Gerry Godwin MD [address] [place] [address] PCP - GeneralFamily Wwufetas55/31/24 Shaikh Day MD [address] [place] [address] PCP - Donald ZARCO10/12/24 Aleena Collado NP Nurse PractitionerFamily Medicine10/03/23 Obed Walls DO [address] [place] [address] Yfkqcjdqbcmrjt80/21/24 Vish Zazueta DO [address] [address] Referring ElfvqxycgDcpdbhrmp39/28/24 Ynes Synder NP [address], [facility] [address], [place] [address] Nurse ZyaqejukgihyAxpkdaybo22/28/24 Jessica Ceballos NP [address] [place] [address] Nurse BxgdojxxtasoQjhwortkv63/28/24documented as of this encounter
--- OUTSIDE RECORDS SUMMARY | 2025-02-09 14:56 | XMS_ITS | Clinical Summary ---
Author Organization [facility] Address [address] [place] [address] Care Team Providers Care Matcher Operator Name Role Phone Aleena Collado MD Primary Care Provider [phone] Allergies Active AllergyReactionsCriticalityNoted CjdeSdfzxiagUrhwpczhqrtWlbxBin35/09/2008 Medications MedicationSigDispense QuantityRefillsLast FilledStart DateEnd DateStatus aspirin [...] accident (CVA), unspecified mechanism (CMS/HCC), Atherosclerosis of [place] coronary artery of [place] heart without angina pectoris,Primary hypertension,SARAVIA (dyspnea on [...] 20 mg tablet Indications:Coronary artery disease involving [place] coronary artery of [place] heart without angina pectoris,Carotid artery stenosis, asymptomatic, [...] to extended spectrum beta lactamase (ESBL) producing zwvytcge61/25/2025 Overview (07/22/2024): ESBL E coli urine CRYSTAL (generalized anxiety disorder)01/21/2024 Overview (07/22/2024): Med agreement signed: 01/21/24 Heart failure, bvhlclmjcle42/10/2024Iron lntkbdgltu20/10/2024Muscle spasm 01/21/2024sychophysiological zjeuncwa73/10/2043Szgfhav51/31/2024Incontinence without sensory gpofydqxg87/31/2024Internal carotid artery stent present 09/11/2023UTI (urinary tract infection)09/11/2023White matter tmxuzwf0009/11/2023 Urinary tract infection wtpemnxl57/22/2024 Overview (09/11/2023): Last Assessment & Plan: Patient [...] of meclizine, ordered vestibular rehab Dizziness and ogudlcjke84/08/2024 Overview (09/11/2023): Last Assessment & Plan: Dizziness [...] status) nemiaphasia due to acute stroke onfusionysphagia Jbwcypbc67H/O traumatic brain gtjldo80 Hzchfhcl80Impaired mobility and activities of daily living Encounter for prophylactic measures, dxeflhimeki20/01/2024 03/14/2023Hospital discharge follow-up Overview (03/14/2023): Last Assessment [...] for diuresis and repeat BMP next week Muzbrwwqnq65History of cerebrovascular accident (CVA) with residual xpqrhbg43Migraine with aura and without status migrainosus, not nnykonakdhc49Overflow incontinence of urine Overview (03/14/2023): Last Assessment [...] Urology. Recurrent major depressive disorder, in full msttiofgr76URTI (acute upper respiratory infection) Overview (03/14/2023): Last Assessment & Plan: Patient had reported symptoms of cough in the morning and had asked for testing. Respiratory panel is negative for any influenza, COVID. Symptoms resolved. Denies cough, SOB, nasal, chest congestion. Fmdtdypnrue43/23/2023 Overview (03/05/2022): Images from the original note [...] Juarez- vascular surgery Recommended lymphedema clinic. Atypical yiqlto7803/05/2022 Assessment & Plan (03/05/2022 11:40 AM EST): Will start imdur 30 mg daily, d/w pt about headache as side effect and this should resolve after some time of taking imdur- if H/a does not resolve then we will stop medication. D/w pt that this may lower her b/p and to call office for any concerns. Mixed yfexkmvnrsljym07/09/2022 Assessment & Plan (02/13/2023 3:15 PM EST): Lipid abnormalities are well controlled, continue crestor Assessment & Plan (03/05/2022 11:42 AM EST): continue crestor 10 mg Assessment & Plan (01/19/2022 9:55 AM EST): Continue crestor 01/18/22 Chol 125, HDL 69, Trig 80. LDL 40 Coronary qgtbrmzvgsoirsx90/10/2021 Overview (03/05/2022): Images from the original note [...] GDMT- ASA, toprol and crestor Carotid artery /13/2021 Overview (03/05/2022): Images from the original note were not included. Assessment & Plan (03/05/2022 11:41 AM EST): F/U with vascular surgery for monitoring Assessment & Plan (01/19/2022 9:56 AM EST): Continue crestor F/U with vascular surgery Cerebrovascular anlxaqdx47/13/2021 Assessment & Plan (02/13/2023 3:13 PM EST): F/U with neuro Status post placement of implantable loop tjrgoope06/26/2019 Overview (01/18/2022): Medtronic Loop Qaspylcpxtfx22/12/2010 Assessment & Plan (03/14/2023 2:25 PM EST): [...] of medial cartilage or meniscus of knee, xbtxval4804/09/2007 Immunizations ImmunizationAdministration DatesNext WxnYIE64Influenza, High Dose Seasonal, Preservative Free12/22/2018Influenza, High-dose Seasonal, Quadrivalent, Preservative Free12/09/2019Influenza, Seasonal, Quadrivalent, Wfhiscehpr89/10/2022,11/26/2020Janssen Sars-Cov-2 Fpysyuoalwd60/01/2021Novel lcaapeooh-O0O5-95, preservative-free02/17/2009 Family History Medical HistoryRelationNameCommentsHeart attackBrotherHypertensionFather HypertensionMotherRelationNameStatusCommentsBrotherFatherDeceasedMotherDeceased [...] Last Filed Vital Signs Vital SignReadingTime TakenCommentsBlood Pgznvnaq588/62007/22/2024 10:59 AM EDT Kvwku7848 10:59 AM EDTTemperature--Respiratory Rate--Oxygen Saturation 99%07/22/2024 10:59 AM EDTInhaled Oxygen Concentration--Teeoih72.9 kg (154 lb) 07/22/2024 10:59 AM LFZWvecat100.6 cm (5' 4 )07/22/2024 10:59 AM EDTBody Mass Index26.43007/22/2024 10:59 AM EDT Plan of Treatment Health MaintenanceDue DateLast DoneCommentsMedicare Annual Wellness (AWV) 1948Depression Zemkilseb44/23/1961Zoster Vaccines (1 of 2)1998Adult Xywupjq41Fall Risk Hhkiopsxo34/23/2014COVID-19 Vaccine (2 - season)/02/2020Influenza Vaccine (#1)509/, 11/24/2022, 01/20/2022, Additional history existsColonoscopyDiscontinued 05/12/2021olorectal Cancer ScreeningDiscontinuedPneumococcal Vaccine: 50+ Years Cijnjhknp60/14/2023CT ColonographyDiscontinuedFIT-DNADiscontinuedFITDiscontinued FOBTDiscontinuedHIB VaccinesAged OutNo longer eligible based [...] Aleena Collado MD [address] [place] [address] PCP - GeneralNurse Practitioner07/21/24
--- NOTE | 2025-02-09 15:07 | XR_ITS ---
The [address] [address] Patient Name: FITZ GIFFORD MRN: [id number] date: 1950 Sex: F Assigned Patient Location: LAB Current Patient Location: LAB Accession/Order Number: [id number] Exam Date: 02/09/2025 15:14 Report Date: 02/09/2025 16:03 At the request of: CINDY GREENE NP Procedure: XR acute abdomen series XR acute abdomen series 02/09/2025 3:20 PM SIGNS AND SYMPTOMS: ^Left Lower Quadrant Pain, R10.32 PROTOCOL: Frontal radiograph of the chest, abdomen, and pelvis COMPARISON: 03/01/2023 FINDINGS: The trachea is midline. Atherosclerotic changes are present in the thoracic aorta. There is an implantable cardiac monitoring device over the anterior chest wall. There is evidence of previous endovascular stenting of the right carotid bifurcation. The heart and mediastinal structures are within normal limits. The lung parenchyma is clear. The bony thorax is intact. There is a nonobstructive bowel gas pattern. There is a moderate to large amount of stool and bowel gas within the colon and rectum. No radiographic evidence of free air. Degenerative changes are noted in the thoracolumbar spine, shoulders, hips, and sacroiliac joints. XR/XR acute abdomen series IMPRESSION: No acute cardiopulmonary pathology. No bowel obstruction or free air. There is a moderate to large amount of stool and bowel gas within the colon and rectum. Impression dictated by: Kobe Sung M.D. 02/09/2025 4:03 PM Dictation Location: [facility] Electronically authenticated by: [id number] Y Date: 02/09/2025 16:03
[2025-02-09 15:08] LABS: Hematocrit 45.5 % (36.0-48.0); Hemoglobin 14.7 g/dL (12.0-16.0); Immature Granulocytes Abs Auto 0.06 10^3/uL (0.00-0.03); Immature Granulocytes Pct Auto 0.5 % (0.0-0.5); Lymphocytes Absolute Auto 1.5 10^3/uL (1.2-3.8); Mean Corpuscular HGB Conc 32.3 g/dL (29.9-35.2); Mean Corpuscular Hemoglobin 29.5 pg (26.7-34.0); Mean Corpuscular Volume 91.2 fL (81.0-99.0); Platelet Count 156 10^3/uL (150-450); Red Blood Count 4.99 10^6/uL (4.20-5.40); White Blood Count 12.0 10^3/uL (4.0-11.0)
[2025-02-09 15:24] LABS: Alanine Aminotransferase 28 U/L (14-59); Albumin Globulin Ratio 1.2; Albumin Level 3.6 g/dL (3.4-5.0); Alkaline Phosphatase 88 U/L (46-116); Anion Gap 10.2; Aspartate Amino Transferase 16 U/L (15-37); Blood Urea Nitrogen 20.0 mg/dL (7.0-18.0); Calcium 9.1 mg/dL (8.5-10.1); Carbon Dioxide 28.5 mmol/L (21.0-32.0); Chloride 114 mmol/L (98-107); Estimated GFR (African America >60 (>=60 mL/min/1.73m^2); Estimated GFR (Non-African Ame >60 (>=60 mL/min/1.73m^2); Globulin 3.0 g/dL; Glucose 64 mg/dL (74-106); Potassium 3.7 mmol/L (3.5-5.1); Sodium 149 mmol/L (136-145); Total Protein 6.6 g/dL (6.4-8.2)
--- OUTSIDE RECORDS SUMMARY | 2025-02-09 15:43 | XMS_ITS | CCD ---
Author Organization [facility] Care Team Providers Care Client Support Consultant Name Role Phone Denver Juarez Unavailable [phone] Susie Arrington Unavailable MD Eddy Day [...] Provider MD Alissa Young Other Provider [facility] Maddie Pietro Other Provider MD Anna Valladares Attending Provider [phone] NO FAMILY PHYSICIAN, [phone] Primary Care Unavail able MIKE VIDES, [facility] Attending Unavaila MD Eddy Swenson Primary Care Provider DO Rafiq Bahena Emergency Provider [phone] Al MD Dagoberto Roche Admit Provider MD [...] FAWWAD, KAM H Primary Care Unavailable FAWWAD, KMA H Admitting Unavailable FAWWAD, KAM H Attending [...] Primary Care Provider CÉSAR Harris Attending Provider [phone] Earline Harris Unavailable Kori Temple Unavailable SHAIKH DAY Primary Care Physician [phone] MD Lazaro Dayikh Primary Care Provider [phone] MD Eddy Day Attending Provider Shaik Day MDh Primary Care Provider MD Lazaro Dayikh Primary Care Provider MD Denver Juarez Attending Provider [phone] MD Denver Juarez Admit Provider [phone] MOHINDER Still Attending Provider Hannah Still Attending [...] Orzech, Carmen X Admitting Unavailable MD Barb [facility] Primary Care Provider ANA SumnerC Felicita Isaac Attending Provider Heaven FLORES, Cindy Unavailable Tato VIDES, Gerry Primary Care Provider [phone] Shaikh Day MD Unavailable Aime Clark DO Unavailable Unallocated , Noms Provider Primary Care Provi neftali Marbin DO, Nakul Unavailable Claudio TIN RECOVERY WORKER, Ynes Unavailable Harsha FLORES, Jameson Unavailable MD Barb [facility] Primary Care Provider DO Aime Clark [...] Attending Unavailable BERNICE CLEMENTE Attending Unavailable Aichholbharati TIN RECOVERY WORKER, Cindy Unavailable Claudio TIN RECOVERY WORKER, Ynes Unavailable Gerry Godwin MD Unavailable BERNICE CLEMENTE Attending Unavailable Alexandr OVALLE Admitting Unavailable Alexandr OVALLE Attending Unavailable BERNICE CLEMENTE Attending Unavailable CINDY COLLADO Primary Care Physician RUBEN SALVADOR Attending Unavailable RUBEN SALVADOR Attending Unavailable BERNICE CLEMENTE Attending Unavailable BERNICE CLEMENTE Admitting Unavailable BERNICE CLEMENTE Attending Unavailable Alexandr OVALLE Admitting Unavailable Alexandr OVALLE Attending Unavailable Nakul Zazueta DO Unavailable Claudio TIN RECOVERY WORKER, Ynes Unavailable Harsha FLORES, Jameson Unavailable Unavailable [...] Attending Unavailable CINDY COLLADO Attending Unavailable Harsha LINDSEY-PM HEAD COOK-Jameson Vasquez Attending Provider Cindy Collado Primary Care Provider [phone] BERNICE CLEMENTE Attending Unavailable Alexandr OVALLE R [...] Unavailable Orzech, Carmen X Attending Unavailable Heaven TIN RECOVERY WORKER-C, Cindy Perry Primary Care Provider Heaven TIN RECOVERY WORKER-C, Cindy Perry Attending Provider [phone] Harsha ACCESS REPRESENTATIVE-PM HEAD COOK-C, Jameson Carias Attending Provider Barb VIDES, Primary Care Provider Heaven TIN RECOVERY WORKER, Cindy Unavailable Tato VIDES, Gerry Primary Care Provider Barb VIDES, Unavailable Unallocatmaday VIDES, Jeremiass Provider Primary Care Provi neftali Tato VIDES, Gerry Primary Care Provider [phone] Wang ZARCO, Saebel Unavailable Tato VIDES, Gerry Unavailable Barb VIDES, Kam Primary Care Provider Shaikh Day Primary Care Unavailable Denver Juarez Admitting UnavailDenver Hunter Attending Unavailabl e Cindy Collado Attending Unavailable Cindy Collado Admitting Unavailable Cindy Collado Primary Care Unavailable Allergies Allergy ClassificationReported Allergen(s)Allergy TypeDate of OnsetReaction(s) Facility (20 sources)Penicillin GDrug Dazelve92-75-6433[facility]dpR[facility] (20 sources)Penicillins; Translations: [PENICILLINS]Allergy to substance 85-32-2076ZpgyWmngjtsohTriHealth [facility] (1 source)PenicillinDrug Gyhrpan33-37-3299TtnA[facility] (20 sources)Penicillin; Translations: [penicillin]Drug AllergyExecutive [facility] Medications Current Medications MedicationDrug Class(es)DatesSig (Normalized)Sig (Original)acetaminophen 325 mg / HYDROcodone bitartrate 5 mg oral tablet (1 source)Opioid AgonistStart: 08-76-2841wzlm 1-2 tablets by mouth every four to six hours as neededHYDROcodone-Acetaminophen 5-325 MG 1-2 tablet as needed Orally every 4-6 hrs for 7 days Mar, [id number] 200 actuat albuterol 0.09 mg/actuat metered dose inhaler (5 sources)beta2-Adrenergic Agonist End: 84-23-7860mpbp 2 puff(s) by inhalation every four hoursalbuterol HFA 90 mcg/act inhaler Inhale 2 puffs every 4 (four) hours if needed for shortness of breath 10/22/2023 Discontinued (Therapy completed)amLODIPine 2.5 mg oral tablet (20 sources)Dihydropyridine Calcium Channel BlockerStart: 08-28-2022 End: 40-92-1757nqrs 1 tablet by mouth once dailyAmlodipine 2.5 mg tablet Active 2.5 MG PO Daily April 09, 2023 1:00am FreeTextSi tablet Orally Once a day; Note: Source Status: Taking; Provider: Windy Sheikh ( ) Complies with drug therapyascorbic acid 500 mg oral tablet (20 sources)Vitamin CStart: 87-65-9971geof 1 tablet by mouth once dailyAscorbic Acid (Vitamin C) 500 mg tablet Active 500 MG PO Daily November 08, 2024 12:00am Complies with drug therapyStart: 99-66-9628Edphwtd C See Instructions, Refills(s) 0 Start Date: 04/14/24 Status: Ordered Repeat number: 1Start: 06-12-2001Zgycaol C See Instructions, Refills(s) 0 Start Date: 04/14/24 Status: Orderedtake 1 tablet by mouth once dailyascorbic acid (Vitamin C) 500 MG tablet Take 500 mg by mouth Daily Activeaspirin 81 mg chewable tablet (20 sources)Platelet Aggregation Inhibitor, Nonsteroidal Anti-inflammatory Drug Start: 01-16-2023 End: 93-35-7801jstw 1 tablet by mouth once dailyAspirin 81 mg tablet,chewable Active 81 MG PO Daily April 12, 2023 1:00am FreeTextSi tablet Orally Once a day; Note: Source Status: Taking; Provider: Windy Sheikh ( ) Complies with drug therapyStart: 03-23-2020 End: 30-84-4321marg 1 tablet by mouth once dailyAspirin 81 mg Tablet,Delayed Release (Dr/Ec) Discontinued 81 MG PO Daily March 23, 2020 1:00amMarch 2023 9:44am CVA preventionStart: 04-10-2018 End: 06-79-3885rgox 1 tablet by mouth once dailyAspirin 81 mg Tablet,Chewable Discontinued 81 MG PO Daily 0 0 April 18, 2018 1:00am March 5:28pm Start: 04-10-2018 End: 99-82-8255nzqd 1 tablet by mouth once daily in the morningAspirin 81 mg tablet,chewable Discontinued 81 MG PO Every morning March 26, 2019 5:28pm March 23, 2020 1:03pm cvabaclofen 20 mg oral tablet (20 sources)gamma-Aminobutyric Acid-ergic AgonistStart: 08-12-2024 End: 61-53-5747wkgx 1 tablet by mouth every eight hours as needed for muscle spasms and muscle spasmsbaclofen (Lioresal) 20 MG tablet Indications: Muscle spasm Take 1 tablet (20 mg) by mouth every 8 (eight) hours if needed for muscle spasms 90 tablet 2 08/12/2024 ActiveStart: 46-25-9836RGCJQFPL 20MG TAB BACLOFEN 20MG TAB Start Date: 03/07/23 Status: Ordered Repeat number: 1Start: 03-07-2023 BACLOFEN 20MG TAB BACLOFEN 20MG TAB Start Date: 03/07/23 Status: OrderedStart: 04-05-2018 End: 15-65-7536heeb 1 tablet by mouth three times daily [...] mg oral tablet (20 sources)Histamine-1 Receptor AntagonistStart: 71-37-8166hwmw 1 tablet by mouth once daily as neededCetirizine 10 mg tablet Active 10 MG PO Daily as needed November 08, 2024 12:00am Complies with drug therapyStart: 02-18-2020 End: 55-92-8631oyad 1 tablet by mouth once dailyCetirizine (All Day Allergy (Cetirizine)) 10 mg Tablet Discontinued 10 MG PO Daily February 18, 2020 1:00am November 21, 2021 11:26am allergy symptomsD-Mannose (2 sources)Start: 37-01-6414eegh 1 mg by mouth onceD-Mannose (Azo D-Mannose) 500 mg capsule Active MG PO November 08, 2024 12:00am Complies with drug therapy D-Mannose 500 MG capsule (20 sources)take 1 capsule by mouth once dailyD-Mannose 500 MG capsule Take 500 mg by mouth Daily [facility] Activediclofenac sodium 0.01 mg/mg topical gel (6 sources)Nonsteroidal Anti-inflammatory DrugStart: 16-70-0472Aszqqptf 1 % apply 1-2 grams to affected area Transdermal twice daily for 30 days Jul, Activedoxycycline hyclate 100 mg oral capsule (20 sources)Tetracycline-class DrugStart: 09-15-2024 End: 93-25-9261mzjq 1 capsule by mouth in the morningdoxycycline (Vibramycin) 100 MG capsule Take 100 mg by mouth in the morning and 100 mg before bedtime. 09/15/2024 ActiveStart: 17-84-0341cktz 1 capsule by mouth once dailydoxycycline hyclate 100 mg Cap 100 mg = 1 cap(s), Oral, Daily, Start the day before the procedure, # 14 cap(s), Refills(s) 0, Pharmacy: [facility], 160, cm, 07/16/24 10:45:00 EDT, Height/Length Dosing, 61, kg, 07/16/24 10:45:00 EDT, Weight Dosing Start Date: 09/09/24 Status: Ordered Quantity: 14.0 Unit: cap(s) Repeat number: 1Start: 05-08-2024 End: 63-45-1321mtxp 1 tablet by mouth in the morningdoxycycline (Vibra-Tabs) 100 MG tablet Take 100 mg by mouth in the morning and 100 mg before bedtime. 05/08/2024 08/11/2024 Discontinued (Therapy completed)Start: 84-17-0759fgcc 1 capsule by mouth every twelve hoursDoxycycline Hyclate 100 MG 1 capsule Orally Twice a day for 5 day(s) Mar, Activeestradiol 0.1 mg/ml vaginal cream (20 sources)EstrogenStart: 84-53-1329Nfgzptlnc 0.01 % (0.1 mg/gram) cream Active 1 GM VAGINAL 3 Times a week November 08, 2024 12:00am Complies with drug therapyStart: 11-21-5448zwlkoxmft (Estrace) 0.1 MG/GM vaginal cream apply a pea- sized amount vaginally and around the urethra NIGHTLY TIME 3 (THREE) weeks, then 3 (THREE) times per week thereafter 04/01/2024 ActiveStart: 35-22-5470Nlvhtfx 0.1 mg/g Cream See Instructions, 42.5 gm, Refill(s) 6, apply a pea-sized amount vaginally and around the urethra nightly x 3 weeks, then 3x per week thereafter, [facility], 160, cm, 04/01/24 8:56:00 EST, Height/Length Dosing, 60, kg, 04/01/24 8:56:00 EST, Weight Dosing StartDate: 04/01/24 Status: Ordered Quantity: 42.5 Unit: g Repeat number: 7FeroSul (2 sources)FeroSul ActiveFeroSul 325 mg oral tablet (20 sources)Start: 12-83-6933vgmo 1 mg by mouth three times dailyFeroSul 325 mg oral tablet mg tab(s), Oral, TID, Refills(s) 0 Start Date: 03/07/23 Status: Ordered Repeat number: 1Start: 10-14-9134kqra 1 mg by mouth three times daily FeroSul 325 mg oral tablet mg tab(s), Oral, TID, Refills(s) 0 Start Date: 03/07/23 Status: Orderedferrous sulfate 325 mg oral tablet (20 sources)Start: 11-13-2022 End: 42-16-0362drri 1 tablet by mouth at mealtimeferrous sulfate 325 (65 Fe) MG EC tablet Take 1 tablet by mouth in the morning. Take with meals. 11/13/2022 10/22/2023 Discontinued (Therapy completed)Start: 11-21-2021 End: 19-94-5500jshg 1 tablet by mouth once dailyFerrous Sulfate (Ferosul) 325 mg (65 mg iron) tablet Active 325 MG PO Daily November 21, 2021 12:00am Complies with drug therapyStart: 12-12-2018 End: 71-01-5098kfia 1 tablet by mouth every other weekFerrous Sulfate 324 mg (65 mg iron) tablet,delayed release (DR/EC) Discontinued 324 MG PO EVERY 2 WEEKS December 12, 2018 10:27am February 18, 2020 1:28pmStart: 04-18-2018 End: 13-69-4476fqxb 1 tablet by mouth twice dailyFerrous Sulfate 324 mg (65 mg iron) Tablet,Delayed Release (Dr/Ec) Discontinued 324 MG PO Twice daily 60 30 0 April 18, 2018 1:00am December 12, 2018 10:28amfurosemide 20 mg oral tablet (20 sources)Loop DiureticStart: 82-69-9522rizi 2 tablets by mouth once daily Furosemide 20 mg tablet Active 40 MG PO Daily November 08, 2024 12:09pm Complies with drug therapyStart: 65-91-1587frvl 10 mg by mouth once dailyLasix 20 mg Tab 10 mg = 0.5 tab(s), Oral, Daily Start Date: 04/01/24 Status: Ordered Repeat number: 1Start: 02-13-2023 End: 33-12-3039bqwmdpbiou (Lasix) 40 MG tablet Take 20 mg by mouth Daily Pt takes 20mg 02/13/2023 ActiveStart: 02-13-2023 End: 25-62-9553rqaotntgky 40 mg Tab Refills(s) 0 Start Date: 03/07/23 Status: OrderedStart: 11-21-2021 End: 70-11-9862jlwj 1 tablet by mouth every other dayFurosemide 20 mg tablet Discontinued 20 MG PO .every other day November 21, 2021 12:00am 2024 12:11pm 20mg 2 tabsStart: 08-65-2181izvn 20 mg by mouth once daily in the morningFurosemide Active 20 MG PO Every morning November 20, 2021 11:00pmtake 2 tablets by mouth every other dayFurosemide 20 MG 2 tablets Orally every other day Activehydrocortisone 10 mg/ml / neomycin 3.5 mg/ml / polymyxin b 43426 unt/ml otic solution (2 sources)Aminoglycoside Antibacterial, Polymyxin-class Antibacterial, CorticosteroidStart: 2024 End: 04-49-8292mziurmfy-polymyxin-hydrocortisone (Cortisporin) otic solution Indications: Acute diffuse otitis externa of both ears Administer 4 drops into each ear in the morning and 4 drops in the evening and 4 drops before bedtime. Do all this for 10 days. 10 mL 2024 06/13/2024 Activemeclizine hydrochloride 25 mg oral tablet (20 sources)AntiemeticStart: 05-29-2024 End: 09-72-3773cvpz 1 tablet by mouth oncemeclizine (Antivert) 25 MG tablet Indications: Dizziness and giddiness Take 1 tablet (25 mg) by mouth every 12 (twelve) hours if needed for dizziness 60 tablet 05/29/2024 06/28/2024 Active Start: 06-25-2023 End: 22-01-6945rchj 1 tablet by mouth three times daily as needed for dizziness meclizine (Antivert) 25 MG tablet Indications: Dizziness and giddiness Take 1 tablet (25 mg) by mouth 3 (three) times a day as needed for dizziness 270 tablet 08/05/2023 11/03/2023 Activemethenamine hippurate 1000 mg oral tablet (20 sources)Start: 74-01-1608Gaobbyrncce Hippurate 1 gram tablet Active 1 GM PO Twice daily November 08, 2024 12:00am Complies with drug therapyStart: 36-08-8568cxxj 1 tablet by mouth in the morningmethenamine hippurate (Hiprex) 1 g tablet Take 1 g by mouth in the morning and 1 g before bedtime. 04/14/2024 ActiveStart: 04-14-2024 End: 29-01-2637bqsq 1 tablet by mouth twice dailymethenamine hippurate 1 g oral tablet 1 gm = 1 tab(s), Oral, BID, X 30 day(s), # 60 tab(s), Refills(s) 11, Pharmacy: [facility], 160, cm, 04/14/24 12:55:00 EST, Height/Length Dosing, 61, kg, 04/14/24 12:55:00 EST, Weight Dosing Start Date: 04/14/24 Stop Date: 04/09/25 Status: Ordered Quantity: 60.0 Unit: tab(s) Repeat number: 12 Indications: Urinary tract infection, site not specified;24 hr mirabegron 50 mg extended release oral tablet (7 sources)beta3-Adrenergic AgonistStart: 07-16-2024 End: 28-36-3377hehl 1 tablet by mouth once dailyMyrbetriq 50 mg oral tablet, extended release 50 mg = 1 tab(s), Oral, Daily, X 30 day(s), # 30 tab(s), Refills(s) 11, Pharmacy: [facility], 160, cm, 04/14/24 12:55:00 EST, Height/Length Dosing, 61, kg, 04/14/24 12:55:00 EST, Weight Dosing Start Date: 07/16/24 Stop Date: 07/11/25 Status: Ordered Quantity: 30.0 Unit: tab(s) Repeat number: 12nitrofurantoin, macrocrystals 25 mg / nitrofurantoin, monohydrate 75 mg oral capsule (7 sources)Nitrofuran AntibacterialStart: 01-21-2024 End: 80-71-6641dmhz 1 capsule by mouth in the morningnitrofurantoin, macrocrystal-monohydrate, (Macrobid) 100 MG capsule Indications: UTI symptoms Take 1 capsule (100 mg) by mouth in the morning and 1 capsule (100 mg) before bedtime. Do all this for 7 days. 14 capsule 01/21/2024 01/28/2024 ActiveStart: 11-19-2023 End: 10-76-2667atcf 1 capsule by mouth in the morningnitrofurantoin, macrocrystal-monohydrate, (Macrobid) 100 MG capsule Indications: Urinary tract infection symptoms Take 1 capsule (100 mg) by mouth in the morning and 1 capsule (100 mg) before bedtime. Do all this for 7 days. 14 capsule 11/19/2023 11/26/2023 ActiveStart: 07-15-2023 End: 10-44-2848euzz 1 capsule by mouth twice dailyMacrobid 100 mg Cap 100 mg = 1 cap(s), Oral, BID, X 7 day(s), # 14 cap(s), Refills(s) 0, Pharmacy: [facility][id number], 160, cm, 07/15/23 12:40:00 EDT, Height/Length Dosing, 60, kg, 07/15/23 12:40:00 EDT, Weight Dosing Start Date: 07/15/23 Stop Date: 07/22/23 Status: Orderedondansetron 8 mg disintegrating oral tablet (4 sources)Serotonin-3 Receptor AntagonistStart: 81-03-4857kofu 1 tablet by mouth every eight hours as neededOndansetron 8 MG 1 tablet on the tongue and allow to dissolve as needed Orally every 8 hours as needed for 3 days Sep, ActiveProbiotic Product (PROBIOTIC/PREBIOTIC/CRANBERRY PO) (20 sources)take 60 mg by mouth once dailyProbiotic Product (PROBIOTIC/PREBIOTIC/CRANBERRY PO) Take 60 mg by mouth Daily ActiveQUEtiapine 50 mg oral tablet (20 sources)Atypical AntipsychoticStart: 03-26-2019 End: 93-21-1873zusg 1 tablet by mouth once daily at bedtimeQuetiapine 50 mg tablet Active 50 MG PO Daily at bedtime March 26, 2019 1:00am insomnia Complies with drug therapyrosuvastatin calcium 20 mg oral tablet (20 sources)HMG-CoA Reductase InhibitorStart: 08-28-2022 End: 58-07-1295tahk 1 tablet by mouth once dailyRosuvastatin 20 mg tablet Active 20 MG PO Daily April 09, 2023 1:00am FreeTextSi tablet Orally Once a day; Note: Source Status: Taking; Provider: Windy Sheikh ( ) Complies with drug therapyStart: 12-12-2018 End: 19-13-0416pcee 1 tablet by mouth once daily at bedtimeRosuvastatin (Crestor) 10 mg Tablet Discontinued 10 MG PO Daily at bedtime December 12, 2018 12:00am April 09, 2023 10:45am hyperlipidemiaStart: 04-10-2018 End: 98-60-6974zhyr 1 tablet by mouth at bedtimeRosuvastatin (Crestor) 10 mg Tablet Discontinued 10 MG PO Bedtime April 18, 2018 7:54am May 17, 2018 12:00am May 18, 2018 12:02amRosuvastatin Calcium Activesulfamethoxazole 800 mg / trimethoprim 160 mg oral tablet (18 sources)Dihydrofolate Reductase Inhibitor Antibacterial, Sulfonamide AntimicrobialStart: 04-06-2024 End: 74-01-7420Safreah D.S. 800 mg-160 mg Tab 1 tab(s), Oral, BID for 14 day(s), 28 tab(s), Refill(s) 0, [facility], 160, cm, 04/01/24 8:56:00 EST, Height/Length Dosing, 60, kg, 04/01/24 8:56:00 EST, Weight Dosing Start Date: 04/06/24 Stop Date: 04/20/24 Status: OrderedStart: 02-20-2024 End: 28-60-3201mhly 1 tablet by mouth once in the morning, then take 1 tablet by mouth once at bedtimesulfamethoxazole-trimethoprim (Bactrim DS) 800-160 MG per tablet Take 1 tablet by mouth in the morning and 1 tablet before bedtime. 02/20/2024 05/12/2024 Discontinued (Therapy completed)Start: 10-30-2023 End: 58-24-2401susr 1 tablet by mouth once in the morning, then take 1 tablet by mouth once at bedtimesulfamethoxazole-trimethoprim (Bactrim DS) 800-160 MG per tablet Indications: Acute cystitis without hematuria Take 1 tablet by mouth in the morning and 1 tablet before bedtime. Do all this for 7 days. 14 tablet 10/30/2023 11/06/2023 ActiveStart: 05-11-2023 End: 40-45-8359ptje 1 tablet by mouth twice dailySulfamethoxazole-Trimethoprim 800-160 mg tablet Discontinued 1 TAB PO Twice daily 10 5 0 May 11, 2023 12:00am February 20, 2024 11:35amtopiramate 50 mg oral tablet (20 sources)Start: 66-00-8293Pibnrwkerl 50 mg tablet Active 25 MG PO Daily at bedtime November 26, 2024 10:03am Complies with drug therapyStart: 11-21-2021 End: 69-55-0206pcqq 1 tablet by mouth once dailyTopiramate 50 mg tablet Discontinued 50 MG PO Daily November 21, 2021 12:00am November 26, 2024 10 :03am24 hr trospium chloride 60 mg extended release oral capsule (20 sources)Cholinergic Muscarinic AntagonistStart: 19-09-2796Pswkrqlz 60 mg capsule,extended release 24hr Active 20 MG PO Daily December 03, 2024 11:50am must be taken on empty stomach at least 1 hour before a meal/food with water only Complies with drug therapyStart: 65-30-2214xsxk 1 capsule by mouth every twenty-four hours in the morningtrospium (Sanctura XR) 60 MG 24 hour capsule Take 60 mg by mouth in the morning. 05/14/2024 ActiveStart: 03-07-2023 End: 57-96-4717gian 1 capsule by mouth once daily 1 hour(s) before mealtime Trospium 60 mg capsule,extended release 24hr Discontinued 60 MG PO Daily April 09, 2023 1:00amOct2024 11:51am must be taken on empty stomach at least 1 hour before a meal/food with water only End: 86-69-8177jfxi 3 tablets by mouth in the morningtrospium (Sanctura) 20 MG tablet Take 60 mg by mouth in the morning and 60 mg before bedtime. 08/11/2024 Discontinued (Therapy completed)ubrogepant 100 mg oral tablet (3 sources) End: 00-26-8708Hovenffaek (Ubrelvy) 100 MG tablet Take 100 mg by mouth 10/22/2023 Discontinued (Therapy completed)vibegron 75 MG Oral Tablet (4 sources)Start: 26-02-8443wrpm 1 tablet by mouth once dailyvibegron 75 mg oral tablet 75 mg = 1 tab(s), Oral, Daily, # 30 tab(s), Refills(s) 11, Pharmacy: [facility], 160, cm, 04/14/24 12:55:00 [...] mg oral tablet (20 sources)Start: 03-26-2019 End: 58-68-0921ubxf 325-650 mg by mouth once daily as needed for headache Acetaminophen 325 mg tablet Discontinued 325 - 650 MG PO Daily as needed for Headache March 26, 2019 5:28pm April 09, 2023 10:46amStart: 04-18-2018 End: 38-04-7121xios 1 tablet by mouth every four hours as needed for pain Acetaminophen 325 mg Tablet Discontinued 325 MG PO Q4H as needed for Pain 0 0 April 18, 2018 1:00am March 26, 2019 5:28pmcephalexin 500 mg oral capsule (14 sources)Cephalosporin AntibacterialStart: 11-22-2021 End: 61-59-9286lnxp 1 capsule by mouth three times dailyCephalexin 500 mg capsule Discontinued 500 MG PO Three times daily 15 5 0 November 22, 2021 12:00am April 09, 2023 10:46amciprofloxacin 500 mg oral tablet (11 sources)Quinolone AntimicrobialStart: 74-36-4307yqph 1 tablet by mouth once dailyCipro 500 mg Tab 500 mg = 1 tab(s), Oral, Daily, Take 1 tablet the day before the procedure and 1 tablet after the procedure, # 2 tab(s), Refills(s) 0, Pharmacy: [facility], 160, cm, 07/16/24 10:45:00 EDT, Height/Length Dosing, 61, kg, 07/16/24 10:45:00 EDT, Weight Dosing Start Date: 07/16/24 Status: Ordered Quantity: 2.0 Unit: tab(s) Repeat number: 1Start: 01-23-2024 End: 50-86-7865gvkzlyybdetyg 500 mg Tab Refills(s) 0 Start Date: 01/29/24 Status: OrderedclonazePAM 0.5 mg oral tablet (20 sources)BenzodiazepineStart: 04-05-2018 End: 26-35-6869nryh 1 tablet by mouth twice dailyClonazepam 0.5 mg Tablet Discontinued 0.5 MG PO Twice daily December 12, 2018 12:00am November 08, 2024 12:11pmtake 1 tablet by mouth every twenty-four hoursclonazePAM 0.5 MG 1 tablet at bedtime Orally Once a day Activeclopidogrel 75 mg oral tablet (20 sources)P2Y12 Platelet InhibitorStart: 12-12-2018 End: 68-48-9820guag 1 tablet by mouth once dailyClopidogrel (Plavix) 75 mg tablet Discontinued 75 MG PO Daily 90 90 3 April 09, 2023 1:00am November 26, 2024 10:02am Stenosis of carotid artery Occlusion and stenosis of unspecified carotid arterydocusate sodium 100 mg oral capsule (20 sources)Start: 04-18-2018 End: 83-26-2979dnrt 1 capsule by mouth twice daily as [...] oral tablet (20 sources)Thiazide DiureticStart: 12-12-2018 End: 20-34-2936anbx 1 tablet by mouth once daily in the morning Hydrochlorothiazide 12.5 mg Tablet Discontinued 12.5 MG PO Every morning December 12, 2018 12:00amFebruary 2020 1:05pm htntake 1 capsule by mouth once dailyhydroCHLOROthiazide (MICROZIDE) 12.5 mg capsule Take 1 capsule (12.5 mg total) by mouth daily. ActivehydroCHLOROthiazide 12.5 mg / lisinopril 10 mg oral tablet (20 sources)Thiazide Diuretic, Angiotensin Converting Enzyme InhibitorStart: 04-05-2018 End: 32-14-8327zgfr 1 tablet by mouth once daily in the morningLisinopril- Hydrochlorothiazide 10-12.5 mg tablet Discontinued 1 TAB PO Every morning March 5:28pm April 09, 2023 10:45am htntake 10-12.5 mg by mouth once in the morninglisinopril-hydroCHLOROthiazide (PRINZIDE,ZESTORETIC) 10-12.5 mg per tablet Take 1 tablet by mouth in the morning. ActiveLisinopril- hydroCHLOROthiazide Activeibuprofen 800 mg oral tablet (16 sources)Nonsteroidal Anti-inflammatory DrugStart: 04-05-2018 End: 64-93-0507ovbx 1 tablet by mouth three times dailyIbuprofen 800 mg Tablet Discontinued 800 MG PO Three times daily April 05, 2018 1:00am April 18, 2018 7:51am24 hr metoprolol succinate 25 mg extended release oral capsule (20 sources)beta-Adrenergic BlockerStart: 04-09-2023 End: 02-37-3551ogee 1 capsule by mouth once dailyMetoprolol Succinate 25 mg capsule,sprinkle,ER 24hr Discontinued 25 MG PO Daily April 0941:00am November 08, 2024 12:11pm FreeTextSi capsule Orally Once a day; Note: Source Status: Taking; Provider: Windy Sheikh ( )Start: 03-07-2023 End: 49-23-1628nufm 1 tablet by mouth once dailyMetoprolol Succinate 25 mg tablet extended release 24 hr Active 25 MG PO daily November 08726244:00am Complies with drug therapyStart: 01-28-2023 End: 11-50-1546wkwb 1 tablet by mouth every twenty-four hours in the morning metoprolol succinate XL (Toprol-XL) 25 MG 24 hr tablet Indications: Primary hypertension (CMS/HCC) take 1 tablet by mouth IN THE MORNING DO NOT CRUSH OR CHEW 90 tablet 1 07/22/2023 10/22/2023 Discontinued (Reorder)Start: 04-05-2018 End: 22-57-1131kykt 1 tablet by mouth once daily in the morningMetoprolol Succinate 25 mg tablet extended release 24 hr Discontinued 25 MG PO Every morning March 26, 2019 5:33pm November 22, 2021 1:21pm htntake 1 capsule by mouth once dailyMetoprolol Succinate 25 MG 1 capsule Orally Once a day for 30 day(s) Activenaproxen 500 mg oral tablet (16 sources)Nonsteroidal Anti-inflammatory DrugStart: 04-05-2018 End: 01-36-1773hdns 1 tablet by mouth twice daily as needed for painNaproxen 500 mg Tablet Discontinued 500 MG PO Twice daily as needed for Pain April 05, 2018 1:00am April 18, 2018 7:51amphenazopyridine hydrochloride 200 mg oral tablet (9 sources)Start: 05-11-2023 End: 41-48-5843xbmx 1 tablet by mouth every eight hoursPhenazopyridine (Pyridium) 200 mg tablet Discontinued 200 MG PO Every 8 hours 6 2 0 May 11, 2023 12:00am November 08, 2024 12:10pmpotassium chloride 10 meq extended release oral capsule (20 sources)Start: 68-76-6099Lhdpmekvx Chloride (Qsw-Jkeu-Jvy M10) 10 mEq oral tablet, extended release Refills(s) 0 Start Date:03/07/23 Status: Ordered Repeat number: 1Start: 97-33-3166Xsuwowtdt Chloride (Nbr-Ndff-Bpr M10) 10 mEq oral tablet, extended release Refills(s) 0 Start Date:03/07/23 Status: OrderedStart: 02-13-2023 End: 06-17-9404ooxygvvco chloride (KLOR-CON M 10) 10 MEQ CR tablet Take 1 tablet (10 mEq total) by mouth. 02/13/2023 02/13/2024 ActiveStart: 02-07-2023 End: 44-17-4447vuyn 1 capsule by mouth once dailyPotassium Chloride 10 mEq capsule, extended release Discontinued 10 MEQ PO Daily April 09, 2023 1:00am November 02, 2024 2:02pmtraZODone hydrochloride 100 mg oral tablet (20 sources)Serotonin Reuptake InhibitorStart: 03-26-2019 End: 73-91-8500Mvyonyywl 100 mg tablet Discontinued March 26, 2019 1:00am March 26, 2019 6:06pmStart: 03-26-2019 End: 46-41-6767Yrqdrffvl 100 mg tablet Discontinued TABLET March 26, 2019 12:00am March 26, 2019 5:06pmStart: 03-26-2019 End: 09-23-0294Jrtlvfgrt Discontinued TABLET March 26, 2019 12:00am March 26, 2019 5:06pmStart: 03-26-2019 End: 52-14-8951Xkitovhvu Discontinued TABLET March 26, 2019 1:00am March 26, 2019 6:06pmStart: 21-22-4085jagr 1 tablet by mouth every twenty-four hourstraZODone [...] acetonide 40 mg/ml injectable suspension (10 sources)CorticosteroidStart: 77-18-6998Ozvghat-40 May, 20 mgVibegron 75 MG tablet (3 sources)Start: 07-16-2024 End: 99-75-3320hapi 1 tablet by mouth once dailyVibegron 75 MG tablet Take 75 mg by mouth Daily 07/16/2024 08/11/2024 Discontinued (Cost of medication)Start: 41-05-5460upbe 1 tablet by mouth once dailyVibegron 75 MG tablet Take 75 mg by mouth Daily 07/16/2024 Activevitamin b12 2 mg extended release oral tablet (20 sources)Vitamin Z52Fudaj: 11-22-2021 End: 57-76-5060Dlvizajfoutjsg (Vitamin B-12) (Vitamin B-12) 2,000 mcg Tablet Extended Release Discontinued 1000 MCG PO Daily 1 0 November 22, 2021 4:44pm April 09, 2023 10:46amStart: 03-23-2020 End: 30-30-1014djmw 1 tablet by mouth once dailyCyanocobalamin (Vitamin [...] kidney; Translations: [Acute kidney failure, unspecified] Onset: 686833-77-0214UjdzwwdfUctka cerebrovascular disease (20 sources)Cerebrovascular accident due to thrombus of left middle cerebral artery; Translations: [Cerebral infarction due to thrombosis of left middle cerebral artery]Onset: 963469-16-7891TtxctphAbxzl cerebrovascular disease (1 source)Acute cerebrovascular diseaseOnset: 27-82-6380Iqiyjkn disorders (20 sources)Mixed anxiety and depressive disorder; Translations: [Anxiety disorder, unspecified]Onset: 751648-71-1812PykevtfWprbaiv dysrhythmias (20 sources)Bradycardia; Translations: [Bradycardia, unspecified]11-21-2021 EpisodicChronic kidney disease (1 source)Chronic kidney disease; Translations: [CHRONIC KIDNEY DISEASE STAGE 3A]Onset: 43-18-6845Ohdlqtwgga heart failure; nonhypertensive (20 sources)Heart failure, unspecified; Translations: [Heart failure]Onset: 373988-23-5904PazdwwxHqxawvdo atherosclerosis and other heart disease (20 sources)Atherosclerotic heart disease of [place] coronary artery without angina pectoris; Translations: [Coronary atherosclerosis]Onset: 03-23-2020 ChronicDeficiency and other anemia (1 source)Iron deficiency anemia secondary to blood loss (chronic); Translations: [IRON DEFIC ANEMIA SEC BLD LOSS CHRN]Onset: 17-91-8809Xklnaew Deficiency and other anemia (16 sources)Anemia; Translations: [Anemia, unspecified]56-75-2560Lkpwxidi Delirium, dementia, and amnestic and other cognitive disorders (6 sources)Progressive aphasia; 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]45-26-5380Tvqlltx Disorders of lipid metabolism (20 sources)Hyperlipidemia; Translations: [Hyperlipidemia, unspecified]Onset: 951855-28-6428KohmbidMahwilrir hypertension (20 sources)Hypertensive disorder; Translations: [Essential (primary) hypertension]Onset: 06-22-2009 Resolved: 758957-38-5909XtglfvwAgglv and electrolyte disorders (2 sources)Hypokalemia; Translations: [Dehydration]Onset: 59-69-6328Ugkgotoi Genitourinary symptoms and ill-defined conditions (20 sources)Incontinence without sensory awareness; Translations: [Overflow incontinence of urine]Onset: 90-85-5860EairvaxQrujtbve; including migraine (20 sources)Migraine with aura; Translations: [Migraine with aura, not intractable, without status migrainosus]Onset: 821972-20-1252Recstjc Headache; including migraine (20 sources)Rwyhszgh19-63-9976EuwvdwteHgvkqlcu; including migraine (1 source)Headache; including migraine; Translations: [HEADACHE UNSPECIFIED] Onset: 40-34-8560Hhuxp valve disorders (1 source)Nonrheumatic mitral (valve) insufficiency; Translations: [NONRHEUMATIC MITRAL INSUFFICIENCY]Onset: 57-25-6858XjxayznMsyddgwlvsda with complications and secondary hypertension (1 source)Hypertensive chronic kidney disease with stage 1 through stage 4 chronic kidney disease, or unspecified chronic kidney disease; Translations: [HTN CKD W/STAGE 1-4 CKD/UNS CKD]Onset: 96-23-2568GnaxtlpFypxsqfmxznaj and screening for infectious disease (3 sources)Contact with and (suspected) exposure to other viral communicable diseases; Translations: [Contact with or exposure to other viral diseases] 14-54-4748CxlevwhkKjwqwuvondwu injury (18 sources)History of traumatic brain injury; Translations: [Personal history of traumatic brain injury]55-25-0950QykboollPpor effects of cerebrovascular disease (20 sources)History of cerebrovascular accident with residual deficit; Translations: [Unspecified sequelae of cerebral infarction]Onset: 02-20-2023 63-65-8447ChpuowqTidlhgagkwfis mental health disorders (20 sources)Psychophysiologic insomnia; Translations: [Psychophysiologic insomnia]Onset: 124591-40-5729CegaornRsks disorders (20 sources)Major depressive disorder, single episode, unspecified; Translations: [Recurrent major depression in full remission]Onset: 08-01-2021 Resolved: 493552-53-3311FawwxdcLccladtur or stenosis of precerebral arteries (20 sources)Bilateral stenosis of carotid arteries; Translations: [Occlusion and stenosis of bilateral carotid arteries]Onset: 02-24-2020 Resolved: 98-28-0195FrvjplaRfmbpiwpmetsjj (20 sources)Arthritis of hand; Translations: [Primary osteoarthritis, right hand]Onset: 04-09-2007 Resolved: 53-87-0898ZxiokptWpxxb aftercare (2 sources)Drug therapy finding; Translations: [Other terminal worker (current) drug therapy]68-42-9451YzmigadeBfkqh and ill-defined cerebrovascular disease (14 sources)Cerebrovascular disease; Translations: [Cerebrovascular disease, unspecified]ChronicOther and ill-defined cerebrovascular disease (1 source)Cerebrovascular disease, unspecified; Translations: [CEREBROVASCULAR DISEASE UNSPECIFIED]Onset: 83-69-3943ZxfizgoGpfbu circulatory disease (20 sources)History of cardiovascular surgery; Translations: [Presence of other cardiac implants and grafts]Onset: 972743-82-2633TxvpaihJzfdh circulatory disease (7 sources)Stented artery; Translations: [Presence of other vascular implants and grafts]91-28-9355QfjbygtFttaq circulatory disease (2 sources)Presence of other vascular implants and grafts; Translations: [Other postprocedural status]28-17-6156DtmzfucJakdq circulatory disease (12 sources)History of cerebrovascular accident due to ischemia; Translations: [Personal history of transient ischemic attack (TIA), and cerebral 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]36-90-2573FurfjyzuGisvv connective tissue disease (1 source)Presence of right artificial knee joint; Translations: [PRESENCE RT ARTIFICIAL KNEE JOINT]Onset: 86-00-7686XgeozosBgjpe connective tissue disease (1 source)Presence of unspecified artificial knee joint; Translations: [PRESENCE UNS ARTIFICIAL KNEE JOINT]Onset: 23-45-7057SlrarbmVgzdq connective tissue disease (4 sources)Other specified soft tissue disorders; Translations: [OTHER SPEC SOFT TISSUE DISORDERS]Onset: 28-58-5234OtnqtmyoJcquv diseases of bladder and urethra (3 sources)Urethral stricture; Translations: [Unspecified urethral stricture, female]Onset: 74-99-9883OvzwyspeDvunk gastrointestinal disorders (16 sources)Dysphagia; Translations: [Dysphagia, unspecified]25-79-1350Neboktvo Other gastrointestinal disorders (1 source)Dysphagia, oropharyngeal phase; Translations: [Dysphagia, oropharyngeal phase]Onset: 67-33-6382PshdjecdCowou hereditary and degenerative nervous system conditions (16 sources)Dystonia; Translations: [Dystonia, unspecified]91-31-5294Naqqwpc Other lower respiratory disease (2 sources)Shortness of breath; Translations: [Shortness of breath]Onset: 00-30-1598NorjrnlaUfyug nervous system disorders (1 source)Difficulty in walking, not elsewhere classified; Translations: [DIFFICULTY IN WALKING NEC]Onset: 59-84-6123IqzginuIggbz nervous system disorders (1 source)Aphasia; Translations: [APHASIA]Onset: 47-34-8395WsomirmMgkgt nervous system disorders (8 sources)Expressive dysphasia; Translations: [Aphasia]14-76-1722OpsnskhTthwx nervous system disorders (1 source)Aphasia; Translations: [Aphasia]39-97-2316ItksfpvWtelu nervous system disorders (1 source)Unspecified abnormalities of gait and mobility; Translations: [Unspecified abnormalities of gait and mobility]Onset: 05-16-8831EwowytkoCggdp nervous system disorders (19 sources)Ataxia; Translations: [Ataxia, unspecified]71-26-7350KwcuehhfGffqj nervous system disorders (11 sources)Abnormal gait; Translations: [Unsteadiness on feet]06-07-2024 EpisodicOther skin disorders (1 source)Localized swelling, mass and lump, left lower limb; Translations: [LOC SWELL MASS LUMP LT LOWER LIMB]Onset: 75-45-2376QctjghosWuvoqga cyst (7 sources)Unspecified ovarian cyst, unspecified side; Translations: [Unspecified ovarian cyst, right side]Onset: 65-78-3332BdqmewejPqwqhffucn and visceral atherosclerosis (20 sources)Peripheral vascular disease, unspecified; Translations: [Peripheral vascular disease]Onset: 806305-27-2351NazvwmgFxkivmrx codes; unclassified (4 sources)Insomnia; Translations: [Other insomnia]82-91-3505WtselatCchhslas codes; unclassified (2 sources)Obstructive sleep apnea syndrome; Translations: [Obstructive sleep apnea (adult) (pediatric)]52-87-3283VfufzznCspnzwvi codes; unclassified (16 sources)Confusional state; Translations: [Disorientation, unspecified] 58-29-8817JqclsydyMkcprpxj codes; unclassified (15 sources)Altered mental status; Translations: [Altered mental status, unspecified]14-04-7313JbgmqfwoHlbfmfbq codes; unclassified (4 sources)Edema of lower extremity; Translations: [Localized edema]02-20-2024 EpisodicResidual codes; unclassified (1 source)Localized edema; Translations: [Edema]98-27-8136UtsyjluaHbsowkpy codes; unclassified (10 sources)Memory impairment; Translations: [Other amnesia]88-24-6517Srcmroom Residual codes; unclassified (2 sources)Staring; Translations: [Transient alteration of awareness]06-15-2024 EpisodicUnclassified (3 sources)COUGH, UNSPECIFIED; Translations: [COUGH, UNSPECIFIED]Onset: 70-48-6208Rdeijicgmywy (1 source)CHRN KIDNEY DISEASE STG 3 UNSP; Translations: [CHRN KIDNEY DISEASE STG 3 UNSP]Onset: 95-87-8890Vlizxreb veins of lower extremity (18 sources)Varicose veins of lower extremity; Translations: [Varicose veins of bilateral lower extremities with other complications]Onset: 99-41-8938Ycylztiz Viral infection (2 sources)COVID-19; Translations: [COVID-19]Onset: 09-07-2021 Resolved: 09-22-2021 Past or Other Problems Problem ClassificationProblemDateDocumented DateEpisodic/Chronic Administrative/social admission (20 sources)Other reduced mobility; Translations: [Impaired mobility and activities of daily living]Onset: 483365-69-1261QballxsbEuqhrzfux infection; unspecified site (8 sources)Infection due to ESBL bacteriaOnset: 401559-48-8741Zlukdpck Comment on above:ESBL E coli urineCalculus of urinary tract (1 source)Personal history of urinary calculi; Translations: [PERSONAL HISTORY OF URINARY CALCULI]Onset: 37-05-8948JlbbarbwSgjawirxnq associated with dizziness or vertigo (20 sources)Dizziness and giddiness; Translations: [Dizziness and giddiness] Onset: 986900-02-0959IwhzgpppBsscemeddg and other anemia (4 sources)Anemia, unspecified; Translations: [ANEMIA UNSPECIFIED]Onset: 07-67-8241FkoukihvK Codes: Fall (2 sources)Fall on same level, unspecified, initial encounter; Translations: [Fall (on) (from) unspecified stairs and steps, initial encounter]Onset: 84-41-4716PzukmrreGzlwnocg of upper limb (6 sources)Other fractures of lower end of left radius, subsequent encounter for closed fracture with routine healing; Translations: [Unspecified fracture of the lower end of left radius, initial encounter for closed fracture]Onset: 04-03-2021 Resolved: 23-57-2751YrzmjbwlRsczqtvh of upper limb (3 sources)Nondisplaced fracture of proximal phalanx of right middle finger, initial encounter for closed fractureOnset: 07-12-2021 Resolved: 64-58-6358NdvslqnoDqukurejlsoeeoqx hemorrhage (3 sources)Gastrointestinal hemorrhage, unspecified; Translations: [Melena] Onset: 04-25-8517AqdklbwmIdxcxmnbryvwo symptoms and ill-defined conditions (20 sources)Dysuria; Translations: [Dysuria]Onset: 2023 Resolved: 22-16-0558VsnxfontTqhocuj and fatigue (5 sources)Weakness; Translations: [WEAKNESS]Onset: 55-65-0605MhqfbktfLxgt disorders (20 sources)Mood disordersOnset: 08-25-2018 Resolved: Nausea and vomiting (1 source)Nausea with vomiting, unspecifiedOnset: 09-22-2021 Resolved: 73-14-0056RzuwqxmoNdsllzadzju deficiencies (20 sources)Deficiency of other specified B group vitamins; Translations: [Iron deficiency]Onset: 28-82-5067BzcfucohBgybl aftercare (1 source)intermediate manager (current) use of aspirin; Translations: [CARE HOME CURRENT USE OF ASPIRIN]Onset: 87-62-9241MpxysncgXmakp aftercare (1 source)Other residential (current) drug therapy; Translations: [OTH CARE HOME CURRENT DRUG THERAPY]Onset: 73-10-7510AsgwamehQvves aftercare (1 source)Encounter for follow-up examination after completed treatment for conditions other than malignant neoplasm; Translations: [ENC F/U EX AFTR CMPL TX NOT MAL SU]Onset: 11-53-6027VntavokiPpsbs aftercare (1 source)custodial (current) use of antithrombotics/antiplatelets; Translations: [HEATING REPAIR TECHNICIAN 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/ANTIPLATLETS]Onset: 48-26-5118Mlfbqaow Other aftercare (20 sources)Post-discharge follow-up; Translations: [Encounter for follow-up examination after completed treatment for conditions other than malignant neoplasm]Onset: 03-06-2023 Resolved: 818102-14-5264VdbmkgjjWilmm circulatory disease (1 source)Personal history of transient ischemic attack (TIA), and cerebral 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; Translations: [PERS HX TIA AND CI NO RESID DEFICIT]Onset: 76-30-5210WltamozfVjurq connective tissue disease (3 sources)Pain in right handOnset: 07-12-2021 Resolved: 56-31-6349RtqznblqIpntx connective tissue disease (20 sources)Spasm; Translations: [Other muscle spasm]Onset: EpisodicOther ear and sense organ disorders (20 sources)Acute otitis externa; Translations: [Diffuse otitis externa, bilateral]Onset: 2024 Resolved: 757817-47-3941QmlrgupuQucnh gastrointestinal disorders (1 source)Bariatric surgery status; Translations: [BARIATRIC SURGERY STATUS] Onset: 97-31-6113BwmczbqnKrryf gastrointestinal disorders (20 sources)Oropharyngeal dysphagia; Translations: [Dysphagia, oropharyngeal phase]Onset: 322784-15-3300NlnbogavTfnut gastrointestinal disorders (2 sources)Dysphagia, oral phase; Translations: [Dysphagia, oral phase]Onset: 41-91-8751OzonuenmWfvec injuries and conditions due to external causes (1 source)History of falling; Translations: [HISTORY OF FALLING]Onset: 34-34-9793DyuqyhkeWgfeg lower respiratory disease (1 source)Other nonspecific abnormal finding of lung field; Translations: [OTH NONSPECIFIC ABN FIND LNG FIELD]Onset: 15-47-3332PhtnfzzuItzmc nervous system disorders (20 sources)White matter disease; Translations: [White matter disease, unspecified]Onset: 56-90-0909QdkdqrohIcooz nervous system disorders (20 sources)Dysarthria; Translations: [Dysarthria and anarthria]Onset: 089176-41-0001QohfzekqFxtun nervous system disorders (1 source)Functional gait abnormality; Translations: [Unspecified abnormalities of gait and mobility]19-42-8912VcvrnzpcJztlg non-traumatic joint disorders (3 sources)Pain in left wrist; Translations: [PAIN IN LEFT WRIST]Onset: 14-99-9229WrqzwvnvMhova screening for suspected conditions (not mental disorders or infectious disease) (20 sources)Patient encounter status; Translations: [Encounter for screening for malignant neoplasm of colon]Onset: 449064-94-6425YsvzwevpRvoda upper respiratory disease (2 sources)Pain in throat; Translations: [Pain in throat]Onset: 09-11-2023 EpisodicOther upper respiratory infections (20 sources)Acute upper respiratory infection; Translations: [Acute upper respiratory infection, unspecified]Onset: 02-20-2023 Resolved: 883717-23-4599BcwlnvtcFbmeymru codes; unclassified (5 sources)Other specified postprocedural statesOnset: 05-03-2021 Resolved: 18-24-2173ZtrljvcpTkkgzbfq codes; unclassified (7 sources)Altered mental status, unspecified; Translations: [Altered mental status]Onset: 718010-51-6146DwphkfrvOpdwbrch codes; unclassified (1 source)Acquired absence of other specified parts of digestive tract; Translations: [ACQ ABSENCE OTH PART DIGESTV TRACT]Onset: 96-76-8742Hzggqwxm Residual codes; unclassified (1 source)Acquired absence of both cervix and uterus; Translations: [ACQUIRED ABSENCE BOTH CERVIX AND UTERUS]Onset: 52-47-6611XpcjnbnfPrvinluv codes; unclassified (1 source)Sleep disorder, unspecified; Translations: [SLEEP DISORDER UNSPECIFIED]Onset: 39-17-1278QtchauyuJfvaydil codes; unclassified (3 sources)Disorientation, unspecified; Translations: [DISORIENTATION UNSPECIFIED]Onset: 70-65-5507AdevopmeVbgymxdg codes; unclassified (1 source)Pain, unspecified; Translations: [Pain, unspecified]Onset: 02-16-2023 EpisodicScreening and history of mental health and substance abuse codes (1 source)Personal history of nicotine dependence; Translations: [PERSONAL HISTORY OF NICOTINE DEPEND]Onset: 51-82-3960TvsydujmQvcjhlyklpk; intervertebral disc disorders; other back problems (1 source)Cervicalgia; Translations: [CERVICALGIA]Onset: 09-97-3502Coyfwvur Unclassified (1 source)COUGH, UNSPECIFIED; Translations: [COUGH, UNSPECIFIED]Onset: 23-82-3138Ykbqvnejspmn (20 sources)Onset: 341718-69-7025Xtbtzat tract infections (20 sources)Urinary tract infection, site not specified; Translations: [Urinary tract infectious disease]Onset: 11-28-2021 Resolved: 03-49-7109Zunsjmcg Results Test NameValueInterpretationReference RangeFacilityC Urineon 21-99-5505Inufzbof identified Cx Nom (U)Microbiology PROCEDURE: Urine Culture [R1] SOURCE: U Random BODY SITE: COLLECTED DATE/TIME: 11/17/2024 14:57 EDT RECEIVED DATE/TIME: 11/18/2024 17:21 EDT START DATE/TIME: 11/18/2024 17:21 EDT FREE TEXT SOURCE: Ingrid ACCESS REPRESENTATIVE, PM HEAD COOK-C, Orvicky ACCESS REPRESENTATIVE, PM HEAD COOK-C, Carmen X Carmen X FINAL REPORTS Final Report [] Verified Date/Time: 11/20/2024 10:56 EDT <10,000 cfu/ml Mixed skin contaminants Performing Locations R1: This test was performed at: [facility], [address] [place] [address], [address] , , BvtunsToddxkMer[facility] [address] [facility] Board[facility] HospitalComment on above:Performed By: #### [id number] #### [facility] [address] [place] [id number] Office/Clinic Noteon 82-21-5028Gcobcff Office/Clinic NoteUrology Office/Clinic Note Chief Complaint UTI [...] issues, which sounds like she is seeing CORE [facility]APER for. Does mentionpossible EGD in future. She [...] available Patient Education IZeinab, personally scribed for IMTRA Schreiber APRN on 11/17/2024 14:44:04. . Documentation recorded by the evie Downs accurately reflects the services(s) I performed and decisions made by me. Authenticated by Carmen Quintero APRN, FNP-C on 11/17/2024 14:52:36. Portions of this record may have been created with voice recognition artificial intelligence software, specifically [employer] [employer], [employer] and or [employer]. Substitutions may have occurred due to the [...] Tab, Chewed, Daily BACLOFEN (more content not included)...[facility] HospitalComment on above:Result Comment: Electronically Signed By: MITRA Quintero APRN, Carmen Rm\.br\Date and Time Signed: 11/17/24 14:52 EDT\.br\Electronically Co-Signed By: Zeinab Downs\.br\Date and Time Co-Signed: 11/17/24 14:44 EDTUrology Office/Clinic Noteon 67-37-9650Ywwszls Office/Clinic NoteUrology Office/Clinic Note Chief Complaint follow [...] with voice recognition artificial intelligence software, specifically [employer] [employer], [employer] and or [employer]fa. Substitutions may have occurred due to the [...] and denies UTI sxs since then Orders: 35127 Measure Post Void residual urine and/or bladder capacity by US- non-imaging Urnls Dip Stick Auto w/o Microscopy POC 17396 Follow-up With When Contact Information MITRA Quintero [...] mg ER Tab, Oral, Daily Potassium Chloride (Bgf-Bxua-Dff M10) 10 mEq oral tablet, extended release [...] Recorded influenza virus va (more content not included)...[facility] HospitalComment on above:Result Comment: Electronically Signed By: MITRA Quintero APRN, [place] X\.br\Date and Time Signed: 10/08/24 09:45 EDTMain OR Intraoperative Recordon [id number] OR Intraoperative RecordMain OR Intraoperative Record IntraOp Document Type FTURO Summary Primary Physician: Alexandr OVALLE MD Finalized Date/Time: 09/22/24 09:53:39 Pt. Name: BALTAOZZIEO.B./Sex: 1950 Female Med Rec #: [id number] Physician: Alexandr OVALLE MD Financial #: [id number] Pt. Type: O Room/Bed: / Admit/Disch: 09/22/24 09:00:56 - Institution: Case Times FTURO Entry 1 Patient Times In Room 09/22/24 09:29:00 Out Room 09/22/24 09:50:00 Procedure Times Start 09/22/24 09:42:00 Stop 09/22/24 09:45:00 Anesthesia Times Last Modified By: Eulalio BATISTA, Reina Matthew 09/22/24 09:45:52 General Comments: BOTOX LOT#: [id number], EXP DATE: 11/2026 -Elizabeth LINK RN Case Attendance FTURO Entry 1 Entry 2 Entry 3 Case Attendee Alexandr OVALLE MD, RN, Reina Stahl CST, Onelia Matthew Role Performed Surgeon - Primary Child Support Case Officer - Primary Scrub - Primary Time In [...] Signatures Signed By: Reina Link RN 09/22/24 09:53NoAshtabula [facility] CenterMain OR Preoperative Recordon [id number] OR Preoperative RecordMain OR Preoperative Record Holding Area Document Type FTURO Summary Primary Physician: Alexandr OVALLE MD Finalized Date/Time: 09/22/24 09:40:20 Pt. Name: BALTAOZZIE/Sex: 1950 Female Med Rec #: [id number] Physician: Alexandr OVALLE MD Financial #: [id number] Pt. Type: O Room/Bed: / Admit/Disch: 09/22/24 [...] Complaints of Pain: No Skin Integrity Intact, [place], Warm, & Dry Vitals - EU Blood Pressure 144/75 Pulse 83 bpm Respirations 18 br/min SPO2 98 % Additional Other (See Comment) Specimens Comment ua dip Specimens Collected Last Modified By: Wendi Sesay LPN 09/22/24 09:35:12 Finalized By: Wendi Sesay LPN Document Signatures Signed By: Wendi Sesay LPN 09/22/24 09:40[facility] HospitalOperative Reporton 87-31-7070Zooycqpso ReportOperative Report Patient: OZZIE GIFFORD Age: 74 [...] discharged home with antibiotic coverage, Follow up arranged.[facility] HospitalComment on above:Result Comment: Electronically Signed By: VASQUEZ VIDES, Alexandr Banks.br\Date and Time Signed: 09/22/24 09:49 EDTC Urineon 89-66-4868Npoiusny identified Cx Nom (U)Microbiology PROCEDURE: Urine Culture [...] Locations R1: This test was performed at: [facility], [address] [place] [address], [address] [place] [address], YehobtMioiacMercy Health St. Elizabeth Boardman HospitalComment on above:Performed By: #### [id number] #### [facility] [address] [place] [address] [id number] ECHO DOPPLER COMPLETEon 78-58-4160KvvSaint [place] [address] Cardiology Report Signed Patient: OZZIE GIFFORD MR#: [id number] : 1950 Acct:[id number] Age/Sex: 74 / F ADM Date: 08/20/24 Loc: CARD Attending Dr: RUBEN SALVADOR Ordering Physician: RUBEN SALVADOR Date of Service: 08/20/24 Procedure(s): CA echo doppler complete Accession Number(s): [id number] cc: Cindy Collado TIN RECOVERY WORKER; RUBEN SALVADOR Patient Name: OZZIE GIFFORD MR#: [id number] : 1950 Exam Date: 08/20/2024 Ordering Doctor: [...] Area (VTI): 1.78 cm2, 1.78 cm2 Deceleration [place]: Pressure Half-Time: Peak Velocity(Antegrade Flow): 1.37 m/s Peak Gradient(Antegrade Flow): 7.52 mm[Hg] Mean Velocity(Antegrade Flow): 1.02 m/s Mean Gradient(Antegrade Flow): 4.60 mm[Hg] Velocity Time Integral: 37.24 cm Tricuspid Valve Peak Velocity (Regurgitant Flow): 2.49 m/s, 2.93 m/s Peak Velocity: Pulmonic Valve Mean Gradient: Mean Velocity: Peak Velocity: 0.78 m/s Peak Gradient: 2. (more content not included)...TBHRadiology, Radiologist, MD - 08/21/2024 [place] [address] Cardiology Report Signed Patient: OZZIE GIFFORD MR#: [id number] : 1950 Acct:[id number] Age/Sex: 74 / F ADM Date: 08/20/24 Loc: CARD Attending Dr: RUBEN SALVADOR Ordering Physician: RUBEN SALVADOR Date of Service: 08/20/24 Procedure(s): CA echo doppler complete Accession Number(s): [id number] cc: Cindy Collado TIN RECOVERY WORKER; RUBEN SALVADOR Patient Name: OZZIE GIFFORD MR#: [id number] : 1950 Exam Date: 08/20/2024 Ordering Doctor: [...] Area (VTI): 1.78 cm2, 1.78 cm2 Deceleration [place]: Pressure Half-Time: Peak Velocity(Antegrade Flow): 1.37 m/s [...] M.D. Signed By: 08/21/241828 DD/ 28 TD/TT: Top Former: [facility] HospitalRadiology Study observation (narrative)[facility] HospitalCA ECHO DOPPLER COMPLETEOrdered By: Radiologist Radiology on 37-62-2698YDFH [employer] Work Phone: H&P Updateon 08-18-2024H&P UpdateH&P Update [...] procedure. Health Status Procedure history: Colonoscopy (procedure) (751155224) on 05/12/2021 at 70 Years. Knee replacement (465704072). Breast surgery (4389104202). Hysterectomy (192870068). Gastric bypass (9179896732). Social History Social & Psychosocial Habits Tobacco [...] procedure, # 2 tab(s), Refills(s) 0, Pharmacy: [facility], 160, cm,07/16/24 10:45:00 EDT, Height/Length Dosing, 61, kg, 07/16/24 10:45:0... Estrace 0.1 mg/g Cream: See Instructions, 42.5 gm, Refill(s) 6, apply a pea- sized amount vaginally and around the urethra nightly x 3 weeks, then 3x per week thereafter, [facility], 160, cm, 04/01/24 8:56:00 EST, Height/Length Dosing, 60, kg, 04/01/24 8:56:00... Myrbetriq 50 mg oral tablet, extended release: 50 mg = 1 tab(s), Oral, Daily, X 30 day(s), # 30 tab(s), Refills(s) 11, Pharmacy: [facility], 160, cm, 04/14/24 12:55:00 EST, Height/Length Dosing, 61, kg, 04/14/24 12:55:00 EST, Weight Dosing methenamine hippurate 1 g oral tablet: 1 gm = 1 tab(s), Oral, BID, X 30 day(s), # 60 tab(s), Refills(s) 11, Pharmacy: [facility], 160, cm, 04/14/24 12:55:00 EST, Height/Length Dosing,61, kg, 04/14/24 12:55:00 EST, Weight Dosing vibegron 75 mg oral tablet: 75 mg = 1 tab(s), Oral, Daily, # 30 tab(s), Refills(s) 11, Pharmacy: [facility], 160, cm, 04/14/24 12:55:00 EST, Height/Length Dosing, 61, kg, 04/14/24 12:55:00 EST, Weight Dosing Documented Medications Documented BACLOFEN 20MG TAB: BACLOFEN 20MG TAB ClonazePAM 0.5 mg Tab: Refills(s) 0 FeroSul 325 mg oral tablet: mg tab(s), Oral, TID, Refills(s) 0 Lasix 20 mg Tab: 10 mg = 0.5 tab(s), Oral, Daily Potassium Chloride (Tzu-Vqua-Sfj M10) 10 mEq oral tablet, extended release: [...] = 1 tab(s), Oral, Daily Potassium Chloride (Pgq-Mxzp-Jmw M10) 10 mEq oral tablet, extended release quetiapine 50 mg oral tablet rosuvastatin 20 mg Tab topiramate 50 mg Tab vibegron 75 mg oral tablet 75 mg = 1 tab(s), Oral, Daily Vitamin C See Instructions Problem list: All Problems Stroke / SNOMED CT 963766608 / Confirmed Headache / SNOMED CT 48065967 / Confirmed Hypertension / SNOMED CT 0588492756 / Confirmed Dysuria / SNOMED CT 54989219 / Confirmed Incontinence without sensory awareness / SNOMED CT 3711572687 / Confirmed White matter disease / SNOMED CT 4995671733 / Confirmed UTI (urinary tract infection) / SNOMED CT 102628712 / Confirmed Recurrent UTI / SNOMED CT 631904752 / Confirmed ESBL (extended spectrum beta-lactamase) producing bacteria infection / SNOMED CT 6512242471 / Confirmed ESBL E coli urine Canceled: Mixed incontinence / SNOMED CT 68462065, Active Problems (9) Dysuria ESBL (extended spectrum beta-lactamase) producing bacteria infection Headache Hypertension Incontinence without sensory awareness Recurrent UTI Stroke UTI (urinary tract infection) White matter diseaseNoAshtabula County Medical CenterComment on above:Result Comment: Electronically Signed By: Alexandr OVALLE MD\.br\Date and Time Signed: 08/18/24 07:59 EDTMain OR Intraoperative Recordon 05-17-2118Vcjb OR Intraoperative RecordMain OR Intraoperative Record IntraOp Document Type FTURO Summary Primary Physician: Alexandr OVALLE MD Finalized Date/Time: 08/18/24 09:25:34 Pt. Name: DENISEOZZIE D.O.B./Sex: 1950 Female Med Rec #: [id number] Physician: Alexandr OVALLE MD Financial #: [id number] Pt. Type: O Room/Bed: / Admit/Disch: 08/18/24 [...] Performed Surgeon - Primary Scrub - Primary Child Support Case Officer - Primary Time In 08/18/24 09:00:00 08/18/24 [...] Prep Agents Betadine Solution Skin. Condition Intact, [place], Warm, & Description UNCHANGED Dry Additional None [...] Unfinalizing Freetext Reason for Unfinalizing 08/18/24 09:20 [id number] Modifying Existing DataMercy Health St. [facility] Main OR Preoperative Recordon 86-22-7641Umbm OR Preoperative RecordMain OR Preoperative Record Holding Area Document Type FTURO Summary Primary Physician: Alexandr OVALLE MD Finalized Date/Time: 08/18/24 08:55:13 Pt. Name: OZZIE WALKER/Sex: 1950 Female Med Rec #: [id number] Physician: Alexandr OVALLE MD Financial #: [id number] Pt. Type: O Room/Bed: / Admit/Disch: 08/18/24 [...] Signed By: MERLYN Yanes RN, Ruthann 08/18/24 08:55[facility] Operative Reporton 12-35-6610Vfwnnztmb ReportOperative Report Patient: OZZIE WALKER Age: 74 [...] urine. The Urethra was dilated to: 30 [place] w/ sounds, Due to atrophic vaginitis, the urethra bled from the dilation.. Devices Implanted: None. Removal: Cystoscope is removed, The patient tolerated it well. Postoperative Information Discharge: Patient is discharged home with antibiotic coverage, Follow up arranged. We will put her through urodynamics. 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 HospitalComment on above:Result Comment: Electronically Signed By: VASQUEZ VIDES, Alexandr Spicer\Date and Time Signed: 08/18/24 09:26 EDTNM KARSTEN PERF SPECT REST STRon 24-74-3258[place]fw[place] [address] Nuclear Medicine Report Signed Patient: OZZIE GIFFORD MR#: [id number] : 1950 Acct:[id number] Age/Sex: 74 / F ADM Date: 08/10/24 Loc: NM Attending Dr: RUBEN SALVADOR Ordering Physician: RUBEN SALVADOR Date of Service: 08/10/24 Procedure(s): NM karsten perf SPECT rest str Accession Number(s): [id number] cc: Cindy Collado TIN RECOVERY WORKER; RUBEN SALVADOR Patient Name: OZZIE GIFFORD MR#: [id number] : 1950 Exam Date: 08/10/2024 Ordering Doctor: [...] the study was pending per attending physician [facility] . For more details please [...] Signed By: 08/11/24 1352 DD/ 1351 TD/TT: Top Former:TBHRadiology, Radiologist, - 08/11/2024 [place] [address] Nuclear Medicine Report Signed Patient: OZZIE GIFFORD MR#: [id number] : 1950 Acct:[id number] Age/Sex: 74 / F ADM Date: 08/10/24 Loc: NM Attending Dr: RUBEN SALVADOR Ordering Physician: RUBEN SALVADOR Date of Service: 08/10/24 Procedure(s): NM karsten perf SPECT rest str Accession Number(s): [id number] cc: Cindy Collado TIN RECOVERY WORKER; RUBEN SALVADOR Patient Name: OZZIE GIFFORD MR#: [id number] : 1950 Exam Date: 08/10/2024 Ordering Doctor: [...] the study was pending per attending physician [facility] . For more details please [...] Signed By: 08/11/24 1352 DD/ 1351 TD/TT: Top Former: [facility] HealthcareRadiology Study observation (narrative)[facility] HospitalNM KARSTEN PERF SPECT REST STROrdered By: Radiologist Radiology on 55-42-4332MQTM [facility] Work Phone: Office Visiton 59-42-5150Cbhxjl-up [id number] Ozzie Gifford 1950 F Date Provider Department Center 07/22/2024 MelisaRUBEN SALVADOR [facility] Family History Problem Relation Age of Onset Hypertension Mother Hypertension Father Heart attack Brother Family Status - Relation Status Age at Mother Father Brother Level of Service:24235 NE OFFICE/OUTPATIENT ESTABLISHED MOD MDM [address] [facility] HospitalAmbulatory Visit Summaryon 07-16-2024 Ambulatory Visit SummaryAmbulatory [...] mg ER Tab) potassium chloride (Potassium Chloride (Jvo-Jmcv-Rus M10) 10 mEq oral tablet, extended release) [...] BERNICE CLEMENTE PA-C Where: [facility] [place] [address]- Medications What How Much When Why Instructions New mirabegron (Myrbetriq 50 mg oral tablet, extended release) 1 Tablets By Mouth Every day Duration: 30 Days Refills: 11 Pickup at [facility] New vibegron (vibegron 75 mg oral tablet) 1 Tablets By Mouth Every day Refills: 11 Pickup at [facility] Unchanged amlodipine (amLODIPine 2.5 mg Tab) [...] or concerns Unchanged potassium chloride (Potassium Chloride (Goc-Wwmr-Hnz M10) 10 mEq oral tablet, extended release) Contact prescribing physician if questions or concerns Unchanged quetiapine (quetiapine 50 mg oral tablet) Contact prescribing physician if questions or concerns Unchanged rosuvastatin (rosuvastatin 20 mg Tab) Contact prescribing physician if questions or concerns Unchanged topiramate (topiramate 50 mg Tab) Contact prescribing physician if questions or concerns Pharmacy Information [facility]: [address], [place] [phone] What How Much When Why Comments Stop [...] for choosing us for your care. [facility] InstituteUrology Office/Clinic Noteon 05-01-9027Fejrnlw Office/Clinic NoteUrology Office/Clinic Note Chief Complaint recheck [...] been obtained. Will order Local anesthesia. Ordered: 49930 Measure Post Void residual urine and/or bladder capacity by US- non-imaging Body Mass Index (BMI) documented 3008F Current tobacco non-user 1036F Depression Screening Negative 3352F E&M of Est. Patient Moderate 30-39 Min 16672 Influenza immunization status assessed 1030F Medication list [...] Urnls Dip Stick Auto w/o Microscopy POC 60312 2. 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 Very bothersome. No improvement w Trospium. Will add Beta-3, either Myrbetriq or Gemtesa, whichever is covered/more affordable. Risks/benefits/side effects discussed. PVR 50ml Ordered: 38865 Measure Post Void residual urine and/or bladder capacity by US- non-imaging Body Mass Index (BMI) documented 3008F Current tobacco non-user 1036F Depression Screening Negative 3352F E&M of Est. Patient Moderate 30-39 Min 30521 Influenza immunization status assessed 1030F Medication list [...] Urnls Dip Stick Auto w/o Microscopy POC 43177 Orders: ciprofloxacin, 500 mg = 1 tab(s), Oral, Daily, Take 1 tablet the day before the procedure and 1 tablet after the procedure, # 2 tab(s), Refills(s) 0, Pharmacy: [facility], 160, cm, 07/16/24 10:45:00 EDT, Height/Length Dosing, 61, kg, 07/16/24 10:45:0... mirabegron, 50 mg = 1 tab(s), Oral, Daily, X 30 day(s), # 30 tab(s), Refills(s) 11, Pharmacy: [facility], 160, cm, 04/14/24 12:55:00 EST, Height/Length Dosing, 61, kg, 04/14/24 12:55:00 EST, Weight Dosing vibegron, 75 mg = 1 tab(s), Oral, Daily, # 30 tab(s), Refills(s) 11, Pharmacy: [facility], 160, cm, 04/14/24 12:55:00 EST, Height/Length Dosing, (more content not included)...[facility] HospitalComment on above:Result Comment: Electronically Signed By: BERNICE CLEMENTE PA-C\.br\Date and Time Signed: 07/16/2517:43 EDTC Urineon 78-55-4053Vmesojjo identified Cx Nom (U)Microbiology PROCEDURE: Urine Culture [...] Locations R1: This test was performed at: [facility], [address] [place] [address], [address]- , , PkgmsrBvfuqpMercy Health St. Elizabeth Boardman HospitalComment on above:Performed By: #### [id number] #### [facility] [address] [place] [address] [id number] CERVICAL SPINE WO/W CONon 96-35-5969Do[address] [address] Magnetic Resonance Report Signed Patient: OZZIE GIFFORD MR#: [id number] : 1950 Acct:[id number] Age/Sex: 74 / F ADM Date: 06/24/24 Loc: LAB Attending Dr: Jameson Mcleod NP Ordering Physician: Jameson Mcleod NP Date of Service: 06/24/24 Procedure(s): MR cervical spine wo/w con Accession Number(s): [id number] cc: Cindy Collado TIN RECOVERY WORKER; Jameson Mcleod NP [address] [address] Patient Name: OZZIE GIFFORD MRN: [id number]:[id number] date: 1950 Sex: F Assigned Patient Location: LAB Current Patient Location: LAB Accession/Order Number: [id number] Exam Date: 06/24/2024 11:38 Report Date: 06/24/2024 [...] Sung M.D. 06/24/2024 11:50 AM Dictation Location: [place] [address] Electronically authenticated by: [id number] Y Date: 06/24/2024 11:50 Dictated By: Bambi Sung M.D. Signed By: 06/24/24 1152 DD/ 1150 TD/TT: Top Former:TBHRadiology, Radiologist, - 06/24/2024 [place] [address] Magnetic Resonance Report Signed Patient: OZZIE GIFFORD MR#: [id number] : 1950 Acct:[id number] Age/Sex: 74 / F ADM Date: 06/24/24 Loc: LAB Attending Dr: Jameson Mcleod NP Ordering Physician: Jameson Mcleod NP Date of Service: 06/24/24 Procedure(s): MR cervical spine wo/w con Accession Number(s): [id number] cc: Cindy Collado NP; Jameson Mcleod NP The [address] [address] Patient Name: OZZIE GIFFORD MRN: [facility]:[id number] date: 1950 Sex: F Assigned Patient Location: LAB Current Patient Location: LAB Accession/Order Number: [id number] Exam Date: 06/24/2024 11:38 Report Date: 06/24/2024 [...] Sung M.D. 06/24/2024 11:50 AM Dictation Location: [place] [address] Electronically authenticated by: [id number] Y Date: 06/24/2024 11:50 Dictated By: Bambi Sung M.D. Signed By: 06/24/24 1152 DD/ 1150 TD/TT: Top Former: [facility] HealthcareRadiology Study observation (narrative)[facility] CERVICAL SPINE WO/W CONOrdered By: Radiologist Radiology on 39-15-5261IVCBSouthPointe Hospital Work Phone: MRI HEAD/BRAIN WO/W CONTRon 48-61-0150SolSaint [place] [address] Magnetic Resonance Report Signed Patient: OZZIE GIFFORD MR#: [id number] : 1950 Acct:[id number] Age/Sex: 74 / F ADM Date: 06/24/24 Loc: LAB Attending Dr: Jameson Mcleod NP Ordering Physician: Jameson Mcleod NP Date of Service: 06/24/24 Procedure(s): MR head/brain wo/w con Accession Number(s): [id number] cc: Cindy Collado TIN RECOVERY WORKER; Jameson Mcleod NP [place] [id number] Patient Name: OZZIE GIFFORD MRN: [facility]:[id number] date: 1950 Sex: F Assigned Patient Location: LAB Current Patient Location: LAB Accession/Order Number: [id number] Exam Date: 06/24/2024 13:40 Report Date: 06/24/2024 [...] Sung M.D. 06/24/2024 1:48 PM Dictation Location: [place] [address] Electronically authenticated by: [id number] Y Date: 06/24/2024 13:48 Dictated By: Bambi Sung M.D. Signed By: 06/24/24 1357 DD/ 1348 TD/TT: Top Former:TBHRadiology, Radiologist, - 06/24/2024 [place] [address] Magnetic Resonance Report Signed Patient: OZZIE GIFFORD MR#: [id number] : 1950 Acct:[id number] Age/Sex: 74 / F ADM Date: 06/24/24 Loc: LAB Attending Dr: Jameson Mcleod NP Ordering Physician: Jameson Mcleod NP Date of Service: 06/24/24 Procedure(s): MR head/brain wo/w con Accession Number(s): [id number] cc: Cindy Collado NP; Jameson Mcleod NP The [place] [id number] Patient Name: OZZIE GIFFORD MRN: [id number]:[id number] date: 1950 Sex: F Assigned Patient Location: LAB Current Patient Location: LAB Accession/Order Number: [id number] Exam Date: 06/24/2024 13:40 Report Date: 06/24/2024 [...] Sung M.D. 06/24/2024 1:48 PM Dictation Location: [place] [address] Electronically authenticated by: [id number] Y Date: 06/24/2024 13:48 Dictated By: Bambi Sung M.D. Signed By: 06/24/24 1351 DD/ 1348 TD/TT: Top Former: [facility] HealthcareRadiology Study observation (narrative)[facility] HospitalI HEAD/BRAIN WO/W CONTROrdered By: Radiologist Radiology on 98-76-2119PYKRSouthPointe Hospital Work Phone: [facility] CREATININEon 65-03-2866Wspzmpuanm [Mass/Vol]0.68 mg/dL0.55 - 1.02 mg/dLNOMercy McCune-Brooks HospitalGFR/1.73 sq M.predicted CKD-EPI (S/P/Bld) [Vol rate/Area]>60>=60 mL/min/1.73m 2NOMS [facility] HospitalTBH EGFR-NON AF TOGOLESE>60 >=60 mL/min/1.73m 2NOMS [facility] HospitalCLINISYNCNRay County Memorial HospitalALL CBC WITH AUTO DIFF on 00-76-2345JTZRQYAMA ABSOLUTE AUTO0.1NOMS HealthcareBasophils/100 WBC (Bld)0.9 %0.2 - 2.0 %NOMThe Rehabilitation InstituteEosinophils/100 WBC (Bld)4.3 %0.9 - 7.0 %SouthPointe HospitalErythrocyte distribution width (RBC) [Ratio]13.3 %11.0 - 15.0 %SouthPointe HospitalHematocrit (Bld) [Volume fraction]41.9 %36.0 - 48.0 %[facility] Hemoglobin (Bld) [Mass/Vol]14.2 g/dL12.0 - 16.0 g/dLSouthPointe HospitalIMMATURE GRANULOCYTES ABS AUTO0.02NOMercy McCune-Brooks HospitalImmature granulocytes/100 WBC (Bld)0.3 % 0.0 - 0.5 %[facility] HospitalInterpretation and review of laboratory results AbnormalNOMercy McCune-Brooks HospitalLYMPHOCYTES ABSOLUTE AUTO1.9NOMS [facility] Lymphocytes/100 WBC (Bld)25.5 %20.5 - 60.0 %[facility] HospitalH (RBC) [Entitic mass]30.7 pg26.7 - 34.0 pgSt. Louis Children's HospitalHC (RBC) [Mass/Vol]33.9 g/dL29.9 - 35.2 g/dLSt. Louis Children's HospitalV (RBC) [Entitic vol]90.5 fL81.0 - 99.0 fLSouthPointe HospitalMONOCYTES ABSOLUTE AUTO0.6NOMS HealthcareMonocytes/100 WBC (Bld)8.2 % 1.7 - 12.0 %[facility]Pointe HospitalNEUTROPHILS ABSOLUTE AUTO4.5NOMercy McCune-Brooks Hospital Neutrophils/100 WBC (Bld)60.8 %43.0 - 75.0 %NOMS HealthcarePlatelet mean volume (Bld) [Entitic vol]10.7 fL9.5 - 13.5 fLNOMS HealthcareTBH EO #0.3NOMS Healthcare TBH BSN143ZzpLURR HealthcareTBH RBC4.63NOMS HealthcareTBH WBC7.5NOMS Healthcare CLINISYNCNOMS HealthcareC Urineon 07-88-0976Piymmhmp identified Cx Nom (U) Microbiology PROCEDURE: Urine [...] Locations R1: This test was performed at: [facility], [address] [place] [address], [facility]- , , IbhsgqNxgpgrAshtabula County Medical CenterComment on above:Performed By: #### [id number] #### [facility] [address] [place], [place] [address]Laboratory - Microbiology and Antimicrobial susceptibility Ordered By: Laura Handley on 86-63-4212Izlsfzjj identified Cx Nom (U)10,000 cfu/ml Gram Negative [employer] Securities Broker speciesVan Wert County HospitalReminders on 89-54-2623TjkjdbbirNtlhwihmj From: Christina Saul To: EU - Administrative; Sent: 08/09/2023 10:15:11 EDT Show up: 04/13/2024 10:14:00 EST Subject: 1 yr f/u Due Date/Time: 07/14/2024 10:14:00 EDT Reminder/Recall patient seen on 07/15/2023. Patient needs a 1 yr f/u w/ PVR with AO in [place]. Appointment due by07/14/2024 Pt has been scheduled for 08/05/24.[facility] HospitalUrology Office/Clinic Noteon 91-13-4239Tqjbifz Office/Clinic NoteUrology Office/Clinic Note Chief Complaint urinary [...] incontinence Patient is accompanied with son 10/26/23 Bun/Office Equipment Technician/GFR nl 1. Recurrent UTI (N39.0: Urinary tract [...] day(s), # 60 tab(s), Refills(s) 11, Pharmacy: [facility], 160, cm, 04/14/24 12:55:00 EST, Height/Length Dosing, 61, kg, 04/14/24 12:55:00EST, Weight Dosing Body Mass Index (BMI) documented 3008F Current tobacco non-user 1036F Depression Screening Negative 3352F E&M of Est. Patient Moderate 30-39 Min 20684 Influenza immunization status assessed 1030F Medication list [...] E&M of Est. Patient Moderate 30-39 Min 06775 Influenza immunization status assessed 1030F Medication list [...] Stick Auto w/o Microsco (more content not included)...[facility] HospitalComment on above:Result Comment: Electronically Signed By: Monserrat EDEN, Kori\.br\Date and Time Signed: 04/14/24 14:04 [facility] Urineon 74-29-9006Ceggvhou identified Cx Nom (U)Microbiology PROCEDURE: Urine Culture [...] Locations R1: This test was performed at: [facility], [address] [place] [address], [address] , , RwsswnLikehzAshtabula County Medical CenterComment on above:Performed By: #### [id number] #### [facility] [address] [place], [place] [address]Qqhuquglwt Visit Summaryon 75-83-0444Pvilauacbx Visit Summary Ambulatory Visit Summary OZZIE WALKER [...] mg ER Tab) potassium chloride (Potassium Chloride (Lqa-Xvod-Fcw M10) 10 mEq oral tablet, extended release) [...] BERNICE CLEMENTE PA-C Where: [facility] [place] [address]- You Need to Complete the Following Urine [...] then 3x per week thereafter Pickup at [facility] Unchanged amlodipine (amLODIPine 2.5 mg Tab) [...] TAB) 0 Unchanged potassium chloride (Potassium Chloride (Cer-Nusa-Oqb M10) 10 mEq oral tablet, extended release) Unchanged quetiapine (quetiapine 50 mg oral tablet) Unchanged rosuvastatin (rosuvastatin 20 mg Tab) Unchanged topiramate (topiramate 50 mg Tab) Unchanged trospium (trospium 60 mg oral capsule, extended release) 1 Capsules By Mouth Once a day (in the morning) Urinary incontinence without sensory awareness Duration: 90 Days Pharmacy Information [facility]: [address], [place] [phone] Allergies penicillin Problems Ongoing - Any problem [...] your care. [facility] HospitalUrology Office/Clinic Noteon 73-11-6638Fkppwnu Office/Clinic NoteUrology Office/Clinic Note Chief Complaint 2 [...] - tx w/ Bactrim x 10d 10/26/23 Bun/Office Equipment Technician/GFR nl. TODAY: Pt started OTC UTI preventives after last visit as instructed. However had breakthrough UTI in Feb and infected again now. UA today shows trace ketones, traced- lysed blood, positive nits, large blood. Reviewed UA. Patientdoes reports some burning and pain while urinating. KUB 04/01/24 [facility] - independent review - [...] Contact Information CORRIE EDEN, BERNICE Carias, URL [address] [place] [address] Additional Instructions: -Follow up in [...] mg ER Tab, Oral, Daily Potassium Chloride (Wuo-Zmku-Ved M10) 10 mEq oral tablet, extended release quetiapine 50 mg oral tablet rosuvastatin 20 mg Tab topiramate 50 mg Tab trospium 60 mg oral capsule, extended release, 60 mg= 1 cap(s), Oral, qAM, 3 refills Allergies penicillin Social History Tobacco Never (less than 100 in lifetime) Tobacco Use:. Never Smokeless Tobacco Use:. Household toba (more content not included)...[facility] Comment on above:Result Comment: Electronically Signed By: BERNICE CLEMENTE PA-C\.br\Date and Time Signed: 04/01/2509:57 EST\.br\Electronically Co-Signed By: Judy Cool\.br\Date and Time Co-Signed: 04/01/24 10:32 ESTXR Abdomen 1 View on 00-05-5489DK Abdomen 1 ViewExam Date/Time: 04/01/2024 09:48 EST [...] Aneesh Bermudez M.D. Transcribed by: RUMA Technologist: [facility] CenterC Urineon 58-41-1383Qkuqzxvv identified Cx Nom (U)Microbiology PROCEDURE: Urine Culture [...] Locations R1: This test was performed at: [facility], [address] [place] [address] [place], [address]- , [place], VuixhfKcvruxMercy Health St. Elizabeth Boardman HospitalComment on above:Performed By: #### [id number] #### [facility] [address] [place] [address]SX ankle/arm indiceson 71-87-3612OX ankle/arm indicesTriHealth Bet[facility] [address] [place] [address] Ultrasound Report Signed Patient: Ozzie Gifford MR#: [id number] : 1950 Acct:[id number] Age/Sex: 73 / F ADM Date: 02/20/24 Loc: [facility] Room: Type: [facility] Attending [...] Denver Juarez MD02/21/2024 3:36 PM Dictation Location: [place] [address] Tech: Bernice Riggs Transcribed By: SHYANN 02/21/24 153 Dictated By: Denver Juarez MD 02/21/241534 Signed By: 02/21/24 1536[facility] Physician GroupUS carotid doppler BIon 55-85-7192AC carotid doppler [facility] [address] [place], [place] [address] Ultrasound Report Signed Patient: Ozzie Gifford MR#: [id number] : 1950 Acct:[id number] Age/Sex: 73 / F ADM Date: 02/20/24 Loc: [facility] Room: Type: [facility] Attending [...] Denver Juarez MD02/21/2024 3:36 PM Dictation Location: [facility] Tech: Ama Mcfarlane Transcribed By: [facility] 02/21/241535 Dictated By: Denver Juarez MD 02/21/241535 Signed By: 02/21/24 153[facility] Physician GroupURINALYSISOrdered By: SYSTEM SYSTEM on 21-61-8123Dptjdjrs Auto Ql (U)2+ /HPFInvalid Interpretation Code Trace/HPFONECORE HEALTH – [place] UA Auto SSBilirubin Ql (U)NegativeNormalNegativemg/dLONECORE HEALTH – [place] UA Auto SSCalcium oxalate crystals Computer assisted Ql (U)Present graded/HPFInvalid Interpretation CodeONECORE HEALTH – [place] UA Auto SSClarity (U)Turbid *ABN* (02/20/24 11:30 AM)Invalid Interpretation CodeClearFCURAHEALTH [facility] [place] [facility] [place] UA Auto SSColor (U)Yellow 1 (02/20/24 11:30 AM)NormalYellowONECORE HEALTH – [place] UA Auto SSComment on above:Interpretive Data: Microscopic readings are only performed on those samples that meet specific criteria set forth by [facility].Epithelial cells.squamous Auto (Urine sed) [#/Area]3-4 graded/HPFInvalid Interpretation CodeFT UA Auto SSGlucose Ql (U)NegativeNormalNegativemg/dLONECORE HEALTH – [place] UA Auto SS Hemoglobin Auto test strip (U) [Mass/Vol]NegativeNormalNegativemg/dLFT UA Auto SSKetones Auto test strip Ql (U)NegativeNormalNegativemg/dLFT UA Auto SS Leukocyte esterase Auto test strip Ql (U)250 Flora/uL Flora/uLInvalid Interpretation CodeNegativeLeu/uLONECORE HEALTH – [place] UA Auto SSMucus Auto Ql (U)Trace graded/LPFNormal Negativegraded/LPFFTMC UA Auto SSNitrite Auto test strip Ql (U)2+ mg/dLInvalid Interpretation CodeNegativemg/dLONECORE HEALTH – [place] UA Auto SSpH (U)5.5 *NA* (02/20/24 11:30 AM)Invalid Interpretation Code5.0 - 9.0[facility] [place] UA Auto SSProtein Ql (U)NegativeNormalNegativemg/dLONECORE HEALTH – [place] UA Auto SSRBC Ql (U)0-3 graded/HPFNormal 0-3graded/HPFONECORE HEALTH – [place] UA Auto SSSpecific gravity (U) [Rel density]1.025 *NA* (02/20/24 11:30 AM)Invalid Interpretation Code1.005 - 1.030[facility] [place] UA Auto SS Urobilinogen (U) [Mass/Vol]NegativeNormalNegativemg/dLONECORE HEALTH – [place] UA Auto SSWBC Auto (Urine sed) [#/Area]31-75 graded/HPFInvalid Interpretation Code0-5graded/HPFONECORE HEALTH – [place] UA Auto SSURINALYSISOrdered By: Niurka Canas on 10-65-5719PU Spec Desc Clean Catch (02/20/24 11:30 AM)NormalONECORE HEALTH – [place] UA Auto SSUrinalysis with Microon 37-38-6948Vtuuyhqc Auto Ql (U)2+ /HPFAbnormalTraceSycamore Medical CenterComment on above: Performed By: #### [id number] #### [facility] [address] [place], [place] [address]Gzgjlcmvu Ql (U)NegativeNormalNegativeSycamore Medical CenterComment on above:Performed By: #### [id number] #### [facility] [address] [place], [place] [address]Nisaadr oxalate crystals Computer assisted Ql (U)Present AbnormalSycamore Medical CenterComment on above:Performed By: #### [id number] #### [facility] [address] [place], [place] [address]Kqcsfkn (U)TurbidAbnormalClearFCleveland Clinic Lutheran Hospital Comment on above:Performed By: #### [id number] #### [facility] [address] [place], [place] [address]Xiaie (U)YellowNormalYellowSycamore Medical CenterComment on above:Result Comment: Microscopic readings are only performed on those samples that meet specific criteria set forth by [facility].Performed By: #### [id number] #### [facility] [address] [place], [place] [address]Mwpihtadnk cells.squamous Auto (Urine sed) [#/Area]3-4Invalid Interpretation CodeSycamore Medical CenterComment on above:Performed By: #### [id number] #### [facility] [address] [place], [place] [address]Ziqoffd Ql (U)NegativeNormalNegParkview Health Montpelier Hospital Comment on above:Performed By: #### [id number] #### [facility] [address] [place], [place] [address]Uvieuibhsp Auto test strip (U) [Mass/Vol]NegativeNormalNegative [facility] Medical CenterComment on above:Performed By: #### [id number] #### [facility] [address] [place], [place] [address]Ccabxwy Auto test strip Ql (U)NegativeNormalNegParkview Health Montpelier HospitalComment on above:Performed By: #### [id number] #### [facility] [address] [place], [place] [address]Kvmetjsec esterase Auto test strip Ql (U)250 Flora/uLAbnormal NegativeSycamore Medical CenterComment on above:Performed By: #### [id number] #### [facility] [address] [place], [place] [address]Rtypt Auto Ql (U)TraceNormalNegParkview Health [facility] Hospital Comment on above:Performed By: #### [id number] #### [facility] [address] [place], [place] [address]Rpfqzvi Auto test strip Ql (U)2+ mg/dLAbnormalNegParkview Health Montpelier HospitalComment on above:Performed By: #### [id number] #### [facility] [address] [place] [address]mK (U)5.5 [pH]Invalid Interpretation Code5.0-9.0[facility] Medical CenterComment on above:Performed By: #### [id number] #### [facility] [address] [place] [address]Ffruwzr Ql (U)NegativeNormalNegParkview Health [facility] Hospital Comment on above:Performed By: #### [id number] #### [facility] [address] [place] [address]PYK Ql (U)2-6Rrcrea6-9UpnygfCleveland Clinic Lutheran HospitalComment on above:Performed By: #### [id number] #### [facility] [address] [place] [address]Wyurymap gravity (U) [Rel density]1.025Invalid Interpretation Code1.005-1.030[facility] Medical CenterComment on above:Performed By: #### [id number] #### [facility] [address] [place] [address]Hoobgsvqwfel (U) [Mass/Vol]NegativeNormalNegParkview Health Montpelier HospitalComment on above:Performed By: #### [id number] #### [facility] [address] [place] [address]LOC Auto (Urine sed) [#/Area]38-23Jaulkrjv0-3XcrdmpCleveland Clinic Lutheran HospitalComment on above:Performed By: #### [id number] #### [facility] [address] [place] [address]Kjab of Urine collection methodClean CatchNormSelect Medical Specialty Hospital - Southeast OhioComment on above:Performed By: #### [id number] #### [facility] [address] [place] [address]Xntdgjlszi Visit Summaryon 42-95-7572Cbxjiheerr Visit Summary Ambulatory Visit Summary OZZIE WALKER [...] mg ER Tab) potassium chloride (Potassium Chloride (Rwc-Bkuw-Kgq M10) 10 mEq oral tablet, extended release) quetiapine (quetiapine 50 mg oral tablet) rosuvastatin (rosuvastatin 20 mg Tab) topiramate (topiramate 50 mg Tab) trospium (trospium 60 mg oral capsule, extended release) Procedures Performed Breast surgery, Gastric bypass, Hysterectomy, Knee replacement. What to do next Scheduled Follow-Up Appointments Saturday 8:40 AM EST With: BERNICE CLEMENTE PA-C Where: [facility] [address] [place] [address]- Medications What How Much When Why Instructions [...] TAB) 0 Unchanged potassium chloride (Potassium Chloride (Eze-Tpmv-Ueh M10) 10 mEq oral tablet, extended release) [...] your care. [facility] HospitalNo Panel Informationon 90-95-1107FJVJAYIVJNIUHB EPIDERMIDIS, HAEMOLYTICUS, LUGDUNENSIS, SAPROPHYTICUS (RBSLR0BPLM HealthcareSTAPHYLOCOCCUS EPIDERMIDIS, HAEMOLYTICUS, LUGDUNENSIS, SAPROPHYTICUS (URINANot detectedNOMS HealthcareURINARY TRACT INFECTION (HTRX)on 07-55-0298BOAJZEZJXUDOQ WDFFGKTU4HTUX HealthcareACINETOBACTER BAUMANIINot detectedNOMS HealthcareCANDIDA ALBICANS, PARAPSILOSIS, ZMQIWUURRR8JLTK HealthcareCANDIDA ALBICANS, PARAPSILOSIS, TROPICALISNot detectedNOMS Healthcare EVANGELINA FMXGRDWQ8VRXQ HealthcareCANDIDA GLABRATANot detectedNOMS Healthcare EVANGELINA AZDKNX5OVYD HealthcareCANDIDA KRUSEINot detectedNOMS Healthcare CITROBACTER HTJXCQTT6ULHT HealthcareCITROBACTER FREUNDIINot detectedNOMS HealthcareCTX-M1 (15), M2 (2), M9 (9), M8-25 VYNWRC35.764AbnormalNOMS Healthcare CTX-M1 (15), M2 (2), M9 (9), M8-25 GROUPSDetectedAbnormalNOMS HealthcareDFR (A1, A5), SUL (1,2)18.626AbnormalNOMS HealthcareDFR (A1, A5), SUL (1,2)Detected AbnormalNOMS HealthcareENTEROBACTER AEROGENES, CTEXSHF7UWVL Healthcare ENTEROBACTER AEROGENES, CLOACAENot detectedNOMS HealthcareENTEROCOCCUS FAECALIS, ZUYMOHR4PJVV HealthcareENTEROCOCCUS FAECALIS, FAECIUMNot detectedNOMS Healthcare ESCHERICHIA COLI20.787AbnormalNOMS HealthcareESCHERICHIA COLIDetectedAbnormal NOMS HealthcareInterpretation and review of laboratory resultsAbnormalNOMS HealthcareKLEBSIELLA PNEUMONIAE, QLRRZAT0LYZF HealthcareKLEBSIELLA PNEUMONIAE, OXYTOCANot detectedNOMS HealthcareMORGANELLA XQQDPPCJ8FOBO HealthcareMORGANELLA MORGANIINot detectedNOMS HealthcarePROTEUS MIRABILIS, BQNFSGGE9BBBR Healthcare PROTEUS MIRABILIS, VULGARISNot detectedNOMS HealthcarePSEUDOMONAS AERUGINOSA0 NOMS HealthcarePSEUDOMONAS AERUGINOSANot detectedNOMS HealthcareSERRATIA OIPYIDIYIZ7DBPC HealthcareSERRATIA MARCESCENSNot detectedNOMS HealthcareSHV, KPC SKMBZK48.606AbnormalNOMS HealthcareSHV, [facility] GROUPSDetectedAbnormalNOMS HealthcareSTAPHYLOCOCCUS QTKZCK8WAVH HealthcareSTAPHYLOCOCCUS AUREUSNot detected NOMS HealthcareSTREPTOCOCCUS AGALACTIAE (GROUP B STREP)29.666AbnormalNOMS HealthcareSTREPTOCOCCUS AGALACTIAE (GROUP B STREP)DetectedAbnormalNOMS HealthcareSTREPTOCOCCUS PYOGENES (GROUP A STREP)0NOMS HealthcareSTREPTOCOCCUS PYOGENES (GROUP A STREP)Not detectedNOMS HealthcareNOMS HealthcareUrinalysis macro (dipstick) panel (U)on 04-02-3208Vlvkvsjwg, UA2+Negative - 4(70) +++ mg/dL NOMS HealthcareBlood, [...] HealthcareNOMS HealthcareTBH UA (CLEAN/CATCH) MICROSCOPIC IF INDICATEon 93-11-1302APOXALULU URINENegativeNEGATIVENOMS HealthcareBLOOD URINENegativeNEGATIVENOMS Healthcare Clarity (U)CLEARCLEARNOMS HealthcareColor (U)YELLOWYELLOWNOUT HealthcareGLUCOSE URINE UANegativeNEGATIVE mg/dLNOUT HealthcareInterpretation and review of laboratory resultsAbnormalNOMS HealthcareKetones Ql (U)NegativeNEGATIVE mg/dL NOMS HealthcareLeukocyte esterase Test strip Ql (U)SMALLAbnormalNEGATIVENOMS HealthcareNITRITE URINEPositiveAbnormalNEGATIVENOUT HealthcarepH (U)6.5 [pH]5.0 - 9.0NOUT HealthcarePROTEIN URINENegativeNEG/TRACE mg/dLNOUT HealthcareSPECIFIC GRAVITY URINE1.0201.005 - 1.025NOUT HealthcareURINE MICROSCOPIC INDICATEDYESNOUT HealthcareUROBILINOGEN URINE1.0 EU/dL0.2 - 1.0 EU/dLNOUT HealthcareCLINISYNC NOMS HealthcareALL CBC WITH AUTO DIFFon 65-63-9608OHWNENYHB ABSOLUTE AUTO0.1NOMS HealthcareBasophils/100 WBC (Bld)1.0 %0.2 - 2.0 %NOMS HealthcareEosinophils/100 WBC (Bld)9.8 %High0.9 - 7.0 %NOM HealthcareErythrocyte distribution width (RBC) [Ratio]12.7 %11.0 - 15.0 %NOMS HealthcareHematocrit (Bld) [Volume fraction]44.3 %36.0 - 48.0 %NOM HealthcareHemoglobin (Bld) [Mass/Vol]14.4 g/dL 12.0 - 16.0 g/dLNOUT HealthcareIMMATURE GRANULOCYTES ABS AUTO0.01NOMS Healthcare Immature granulocytes/100 WBC (Bld)0.2 %0.0 - 0.5 %NOM HealthcareInterpretation and review of laboratory resultsAbnormalNOUT HealthcareLYMPHOCYTES ABSOLUTE AUTO1.7NOMercy McCune-Brooks HospitalLymphocytes/100 WBC (Bld)34.6 %20.5 - 60.0 %NOMThe Rehabilitation InstituteMCH (RBC) [Entitic mass]29.1 pg26.7 - 34.0 pgNOMercy McCune-Brooks HospitalMCHC (RBC) [Mass/Vol]32.5 g/dL29.9 - 35.2 g/dLNOMercy McCune-Brooks HospitalMCV (RBC) [Entitic vol]89.7 fL 81.0 - 99.0 fLNOMS HealthcareMONOCYTES ABSOLUTE AUTO0.4NOMS Healthcare Monocytes/100 WBC (Bld)7.6 %1.7 - 12.0 %NOMS HealthcareNEUTROPHILS ABSOLUTE AUTO 2.3NOMS HealthcareNeutrophils/100 WBC (Bld)46.8 %43.0 - 75.0 %NOMS Healthcare Platelet mean volume (Bld) [Entitic vol]9.9 fL9.5 - 13.5 fLNOMS HealthcareTBH EO #0.5NOMS HealthcareTBH DGA829AycDOYE HealthcareTBH RBC4.94NOMS HealthcareTBH WBC 4.9NOMS HealthcareCLINISYNCNOMS HealthcareOffice Visiton 77-12-1733Ikiawr-up [id number] Ozzie Gifford 1950 F Date Provider Department Center 09/11/2023 RUBEN MARCANO [facility] Family History Problem Relation Age of Onset Hypertension Mother Hypertension Father Heart attack Brother Family Status - Relation Status Age at Mother Father Brother Level of Service:09142 NE OFFICE/OUTPATIENT ESTABLISHED MOD MDM [address] [facility] [facility] HospitalRF videography Hypopharynx and Esophagus Views for swallowing function W speech and W barium contrast [place] 88-36-36[place] [address] Fluoroscopy Report Signed Patient: OZZIE GIFFORD MR#: [id number] : 1950 Acct:[id number] Age/Sex: 73 / F ADM Date: 08/26/23 Loc: [place] Attending Dr: Shaikh Barb Krueger Ordering Physician: Shaikh Pati Day Date of Service: 08/26/23 Procedure(s): [place] modified barium swallow Accession Number(s): [id number] cc: Shaikh Pati Day [place] [address] Patient Name: OZZIE GIFFORD MRN: [id number] date: 1950 Sex: F Assigned Patient Location: [place] Current Patient Location: [place] Accession/Order Number: [id number] Exam Date: 08/26/2023 10:00 Report Date: 08/26/2023 [...] Signed By: 08/26/23 1055 DD/ 1053 TD/TT: Top Former:TBHRadiology, Radiologist, MD - 08/26/2023 [place] [address] Fluoroscopy Report Signed Patient: OZZIE GIFFORD MR#: [id number] : 1950 Acct:[id number] Age/Sex: 73 / F ADM Date: 08/26/23 Loc: [place] Attending Dr: Shaikh Barb Krueger Ordering Physician: Shaikh Pati Day Date of Service: 08/26/23 Procedure(s): [place] modified barium swallow Accession Number(s): [id number] cc: Shaikh Pati Day [place] [id number] Patient Name: OZZIE GIFFORD MRN: [id number] date: 1950 Sex: F Assigned Patient Location: [place] Current Patient Location: [place] Accession/Order Number: [id number] Exam Date: 08/26/2023 10:00 Report Date: 08/26/2023 [...] Signed By: 08/26/23 1055 DD/ 1053 TD/TT: Top Former: [facility] HospitalRadiology Study observation (narrative)[facility] HospitalRF videography Hypopharynx and Esophagus Views for swallowing function W speech and W barium contrast POOrdered By: Radiologist Radiology on 11-66-6875HRTL [employer] Work Phone: ambulatory Visit Summaryon 44-38-7149Djwceaajsk Visit SummaryAmbulatory Visit Summary OZZIE WALKER Odette [...] mg ER Tab) potassium chloride (Potassium Chloride (Tae-Pokt-Sih M10) 10 mEq oral tablet, extended release) [...] needed Where: [address] [place] [address] Business (1) Medications What How [...] or concerns Unchanged potassium chloride (Potassium Chloride (Mmd-Wvxn-Dhw M10) 10 mEq oral tablet, extended release) [...] take the entire prescrip (more content not included)...[facility] HospitalUrology Office/Clinic Noteon 66-14-6533Tgyskxn Office/Clinic NoteUrology Office/Clinic Note Chief Complaint OV [...] as planned for incontinence w AO. Ordered: 30794 Measure Post Void residual urine and/or bladder capacity by US- non-imaging E&M of Est. Patient Low 20-29 Min 69617 Urnls Dip Stick Auto w/o Microscopy POC 95415 Follow-up With When Contact Information BERNICE CLEMENTE PA-C, URL Only if needed [address] [place] [address] Business (1) Additional Instructions: Patient [...] mg ER Tab, Oral, Daily Potassium Chloride (Aze-Ghxl-Yhe M10) 10 mEq oral tablet, extended release [...] Protein Urine Dipstick: Negative (08/21/23 13:18:00) Specific [place] Urine Dipstick: 1.020 (08/21/23 13:18:00) Urine Appearance Urine Dipstick: Clear (08/21/23 13:18:00) Urine Color Urine Dipstick: Yellow (08/21/23 13:18:00) Urobilinogen Urine Dipstick: Normal 0.2-1 EU/dl (08/21/23 13:18:00) pH Urine Dipstick: 5 (08/21/23 13:18:00)NormalSycamore Medical CenterComment on above:Result Comment: Electronically Signed By: BERNICE CLEMENTE PA-C\Date and Time Signed: 08/20/2412:54 EDTC Urineon 04-39-1483Uzuclgha identified Cx Nom (U)Microbiology PROCEDURE: Urine Culture [R1] SOURCE: U CleanCatcb BODY SITE: COLLECTED DATE/TIME: 07/15/2023 13:56 EDT RECEIVED DATE/TIME: 07/15/2023 18:58 EDT START DATE/TIME: 07/15/2023 18:58 EDT FREE TEXT SOURCE: Orvicky ACCESS REPRESENTATIVE, PM HEAD COOK-C, Orvicky ACCESS REPRESENTATIVE, PM HEAD COOK-C, Carmen X Carmen X FINAL REPORTS Final [...] Locations R1: This test was performed at: [facility], [address] [place] [address], [address] [place] [address], LthhlyUnbsdcMercy Health St. Elizabeth Boardman HospitalComment on above:Performed By: #### [id number] #### [facility] [address] [place], [place] [address]Ambulatory Visit Summaryon 61-66-6785Mjotphldwp Visit Summary OZZIE WALKER :1950 Visit Date:07/15/2023 Ambulatory Visit Instructions Your Diagnosis Dysuria Incontinence without sensory awareness White matter disease UTI (urinary tract infection) Your Care Team Attending Physician - MITRA Quintero APRN, Carmen Rm Primary Care Physician - SHAIKH DAY MD This Is Your Medications List [facility] (BACLOFEN 20MG TAB) amlodipine (amLODIPine 2.5 mg Tab) aspirin (aspirin 81 mg Chew Tab) clonazepam (ClonazePAM 0.5 mg Tab) ferrous sulfate (FeroSul 325 mg oral tablet) furosemide (furosemide 40 mg Tab) metoprolol (metoprolol 25 mg ER Tab) potassium chloride (Potassium Chloride (Fvb-Fzsa-Vpy M10) 10 mEq oral tablet, extended release) [...] TAB) 0 Unchanged potassium chloride (Potassium Chloride (Amp-Ewho-Csm M10) 10 mEq oral tablet, extended release) [...] your care. [facility] HospitalPatient Educationon 07-15-2023 Patient EducationObstetrics and Gynecology [...] this condition includes: ? Antibiotic medicine. ? Shdb-iki-ploubse medicines to treat discomfort. ? Drinking enough [...] these instructions at home: Medicines ? Take razn-mmo-rlaatuc and prescription medicines only as told by [...] Document Revie (more content not included)...[facility] InstituteUrology Office/Clinic Noteon 33-99-9399Ctufyrl Office/Clinic NoteChief Complaint Pt is here for [...] with voice recognition artificial intelligence software, specifically [place] [employer] 911, Eletrogóes and or Trufa. 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 She is tolerating it well without side effects. Refill sent to pharmacy. -Continue timed voids, voiding maneuvers -Follow-up 1 year for med recheck, sooner if needed Urinary incontinence without sensory awareness Ordered: trospium, 60 mg = 1 cap(s), Oral, qAM, X 90 day(s), # 90 cap(s), Refills(s) 3, Pharmacy: [facility] #[id number], 160, cm, 07/15/23 12:40:00 EDT, Height/Length Dosing, 60, kg, 07/15/23 12:40:00 EDT, Weight Dosing trospium, 60 mg = 1 cap(s), Oral, qAM, X 90 day(s), # 90 cap(s), Refills(s) 0, Pharmacy: [facility] #[id number], 160, cm, 03/07/23 10:58:00 EST, Height/Length Dosing, 60, kg, 03/07/23 10:58:00 EST, Weight Dosing 10694 Measure Post Void residual urine and/or bladder capacity by US- non-imaging 3. White matter disease (R90.82: White matter disease, unspecified) [facility] inpatient stay 03/01/23 - for head stuff per patient. CT brain w/o con 03/01/23 - stable atrophy and white matter disease [1] Patient is here with her today, states that she is following with neurology regarding her memory and worsening ambulation. Ordered: 23886 Measure Post Void residual urine and/or bladder capacity by US- non-imaging Orders: Urnls Dip Stick Auto w/o Microscopy POC 28924 Follow-up With When Contact Information MITRA Quintero APRN, Carmen Rm, FAM, URL Additional Instructions: 1 yr w/ PVR Patient Education Urinary Tract Infection, Adult Urinary Incontinence Problem List/Past Medical History Ongoing Dysuria Headache Hypertension Incontinence without sensory awareness Strok (more content not included)...[facility] HospitalComment on above:Result Comment: Electronically Signed By: MITRA Quintero APRN, [place] X\.br\Date and Time Signed: 07/15/23 13:40 EDTLaboratory - Chemistry and Chemistry - challengeon 44-88-3328Ztfrrllhg Ql (U)NegativeCleveland Clinic Medina HospitalGlucose (U) [Mass/Vol]NegativeCleveland Clinic Medina Hospital Ketones Ql (U)traceCleveland Clinic Medina HospitalpH (U)5.5 [pH][facility], Beachwoodpecific gravity (U) [Rel density]1.025C[facility] Clinic Medina HospitalUrobilinogen (U) [Mass/Vol]0.2 mg/dLCleveland Clinic Medina HospitalLaboratory - Specimen informationon 71-18-6469Jwztpzooep (U)clearCleveland Clinic Medina HospitalColor (U)darkyellowCleveland Clinic Medina Hospital Laboratory - Urinalysison 76-48-5183Ugtkiwsfs esterase Test strip Ql (U)small [facility] HospitalNitrite Ql (U)PositiveCleveland Clinic Medina HospitalProtein Ql (U)NegativeCleveland Clinic Medina HospitalNo Panel Informationon 91-61-6732Qouyj Occult BloodNegativeCleveland Clinic Medina HospitalUrine Cultureon 16-85-1825Sehizwgq identified Cx Nom (U)ORGANISM: Gram Negative Bacilli (O:GNB) [place] Count >100,000 PERFORMED BY: [place] [address] PATHOLOGIST ORDER CLERK YOCASTA BYRNE M.D.[facility] Hospital - DublinComment on above: Performed By: #### CUU #### [place] [address] USAUrine culture routineon 33-45-4867Sdlxyedx identified Cx Nom (U)Klebsiella pneumoniaeAbnormalCleveland Clinic Medina HospitalBasophils Auto (Bld) [#/Vol]Ordered By: Nakul Nazario on 91-79-6463Zfemxqteu (Bld) [#/Vol]0.0 10*3/uL0.0-0.2FBarnesville HospitalBasophils/100 WBC Auto (Bld)Ordered By: Nakul Nazario on 28-96-4972Fmkhubrnt/100 WBC (Bld)0.8 %. [facility] HospitalBlood activated clotting time by coagulation assayOrdered By: Denver Juarez on 03-03-7402MMQ Coag (Bld)298 s90-139 [facility] Medina HospitalComment on above:Reference Range: 90-139 (Non-heparinized)Calcium [Mass/volume] in Serum or PlasmaOrdered By: Nakul Nazario on 78-78-7227Voclpsw [Mass/Vol]9.3 mg/dL8.6-10.3FBarnesville HospitalCarbon dioxide, total [Moles/volume] in Serum or PlasmaOrdered By: Nakul Nazario on 07-05-3743AT9 [Moles/Vol]29.4 mmol/L21.0-31.0C[facility] Clinic Medina HospitalChloride [Moles/volume] in Serum or PlasmaOrdered By: Nakul Nazario on 06-86-7262Aqksocez [Moles/Vol]110 mmol/L10-351CsgzgowzoCleveland Clinic Medina HospitalCreatinine [Mass/volume] in Serum or PlasmaOrdered By: Nakul Nazario on 50-15-2086Vkhouzvkty [Mass/Vol]0.81 mg/dL0.60-1.20[facility] HospitalEosinophils Auto (Bld) [#/Vol]Ordered By: Nakul Nazario on 82-46-0375Lyuzeiijfeu (Bld) [#/Vol]0.4 10*3/uL0.0-0.45[facility] HospitalEosinophils/100 WBC Auto (Bld)Ordered By: Nakul Nazario on 79-77-3217Ohhyaecbjbp/100 WBC (Bld)6.8 %.[facility] HospitalErythrocyte distribution width Auto (RBC) [Ratio]Ordered By: Nakul Nazario on 29-29-7958Vuukflybesq distribution width (RBC) [Ratio]13.7 %11.9-15.3 [facility] HospitalGlucose [Mass/volume] in Serum or PlasmaOrdered By: Nakul Nazario on 04-16-6075Vobvpri [Mass/Vol]77 mg/eR93-008ZcbxqjvwcCleveland Clinic Medina HospitalComment on above:ADA recommended reference rangeRandom Glucose Reference Range is dependent on time and content of last meal. Glucose of more than 200 mg/dL in a nonstressed, ambulatory subject supports the diagnosisof Diabetes Mellitus.Hematocrit Auto (Bld) [Volume fraction]Ordered By: Nakul Nazario on 25-41-5453Gmkktactbk (Bld) [Volume fraction]44.3 %34.0-46.4 [facility] HospitalHemoglobin [Mass/volume] in BloodOrdered By: Nakul Nazario on 86-72-8843Qurvezbwvf (Bld) [Mass/Vol]15.2 g/dL11.8-15.4 [facility] HospitalLeukocytes [#/volume] corrected for nucleated erythrocytes in Blood by Automated counOrdered By: Nakul Nazario on 76-23-0927ORI corrected for nucl RBC Auto (Bld) [#/Vol]5.5 10*3/uL3.8-11.6 [facility] HospitalLymphocytes Auto (Bld) [#/Vol]Ordered By: Nakul Nazario on 70-66-3895Gglomknddba (Bld) [#/Vol]1.4 10*3/uL1.00-4.8 [facility] HospitalLymphocytes/100 WBC Auto (Bld)Ordered By: Nakul Nazario on 93-46-6003Kjaxduyrhqd/100 WBC (Bld)25.9 %.[facility] Auto (RBC) [Entitic mass]Ordered By: Nakul Nazario on 41-46-8360VLX (RBC) [Entitic mass]29.6 pg24.7-34.3FPeoples Hospital Auto (RBC) [Mass/Vol]Ordered By: Nakul Nazario on 11-53-3260ZCME (RBC) [Mass/Vol]34.3 g/dL32.0-35.0[facility] HospitalMCV Auto (RBC) [Entitic vol]Ordered By: Nakul Nazario on 40-95-9907ECP (RBC) [Entitic vol]86.4 dQ88-763MtlbvnbhfCleveland Clinic Medina HospitalMonocytes Auto (Bld) [#/Vol]Ordered By: Nakul Nazario on 50-18-7271Jhryppkjc (Bld) [#/Vol] 0.4 10*3/uL0.0-0.8[facility] HospitalMonocytes/100 WBC Auto (Bld) Ordered By: Nakul Nazario on 54-14-9904Arssxlibi/100 WBC (Bld)7.8 %. [facility] HospitalNeutrophils Auto (Bld) [#/Vol]Ordered By: Nakul Nazario on 38-21-0222Oxeoplkgowv (Bld) [#/Vol]3.2 10*3/uL1.8-7.7 [facility] HospitalNeutrophils/100 WBC Auto (Bld)Ordered By: Nakul Nazario on 86-53-0609Ejenbkrbzii/100 WBC (Bld)58.7 %.[facility] HospitalNo Panel InformationOrdered By: Nakul Nazario on 30-67-3336Onqyzxvar GFR (CKD-EPI)> 60.0 mL/MinCleveland Clinic Medina Hospital Pharmacy Creatinine Clearance (Chem51.50[facility] Nucleated erythrocytes [Presence] in Blood by Automated countOrdered By: Nakul Nazario on 79-86-6040Iefzvuxxy RBC Auto Ql (Bld)0.2 /100{WBC}0-0.5 [facility] HospitalPlatelet mean volume Auto (Bld) [Entitic vol] Ordered By: Nakul Nazario on 92-41-1810Oxxohhve mean volume (Bld) [Entitic vol]7.8 fL6.3-10.7FBarnesville HospitalPlatelets Auto (Bld) [#/Vol] Ordered By: Nakul Nazario on 03-98-8370Szmljrkah (Bld) [#/Vol]185 10*3/uL 150-450[facility] HospitalPotassium [Moles/volume] in Serum or PlasmaOrdered By: Nakul Nazario on 01-58-3921Bcgqzmiua [Moles/Vol]3.2 mmol/L 3.5-5.1FBarnesville HospitalRBC Auto (Bld) [#/Vol]Ordered By: Nakul Nazario on 32-76-3055NPF (Bld) [#/Vol]5.12 10*6/uL3.60-5.00[facility], Beachwooderum or plasma anion gap determinationOrdered By: Nakul Nazario on 37-37-5993Mhyvm gap [Moles/Vol]9.8 mmol/L6.0-15.0[facility], Beachwoododium [Moles/volume] in Serum or PlasmaOrdered By: Nakul Nazario on 09-17-7670Nydcvz [Moles/Vol]146 mmol/X010-197XcwjtvakxCleveland Clinic Medina HospitalUrea nitrogen [Mass/volume] in Serum or PlasmaOrdered By: Nakul Nazario on 54-26-4713Dhbg nitrogen [Mass/Vol]16 mg/dL7-25[facility] HospitalWBC Auto (Bld) [#/Vol]Ordered By: Nakul Nazario on 47-78-3991IQR (Bld) [#/Vol]5.5 10*3/uL3.8-11.6FBarnesville Hospital Formson [id number]#1.00TIFFNormal [facility] CenterPhysician Referralon 72-93-6248Cfaotsypc Referral [id number]#1.00TIFFNormalSycamore Medical CenterAmbulatory Visit Summaryon 17-88-4163Ialuwhfjds Visit Summary OZZIE WALKER :1950 Visit Date:03/07/2023 [...] mg ER Tab) potassium chloride (Potassium Chloride (Mxx-Lhxq-Fgz M10) 10 mEq oral tablet, extended release) [...] TAB) 0 Unchanged potassium chloride (Potassium Chloride (Upi-Kfsw-Cko M10) 10 mEq oral tablet, extended release) [...] your care. [facility] HospitalPatient Educationon 03-07-2023 Patient EducationUrology Urinary Incontinence [...] ? For women, using a center medical director to prevent urine leaks. This [...] from urine. ? (more content not included)...NormalFisher Kennedy Krieger InstituteUrology Office/Clinic Noteon 38-97-8602Bnlkuul Office/Clinic NoteChief Complaint Senior Qa Tester for incontinence HPI Staff Brandie is a [...] historian. Pt states she walked here from [place] in the rain. Genitourinary: Flank Pain: none. [...] 60 mg ER QD. Rx sent to [facility]. -f/u 6-8 weeks for med recheck and PVR. Ordered: trospium, 60 mg = 1 cap(s), Oral, qAM, X 90 day(s), # 90 cap(s), Refills(s) 0, Pharmacy: [id number], 160, cm, 03/07/23 10:58:00 EST, Height/Length Dosing, 60, kg, 03/07/23 10:58:00 EST, Weight Dosing 2. UTI (urinary tract infection) (N39.0: Urinary tract infection, site not specified) recently dx by PCP [facility] 02/23/23 - 100 k E. coli, treated w/ macrobid. However, pt did have short inpatient stay during course (UA negative at [facility]) and pt states she has a few [...] disease, unspecified (R90.82: White matter disease, unspecified) [facility] inpatient stay 03/01/23 - for head stuff per patient. CT brain w/o con 03/01/23 - stable atrophy and white matter disease Pt not able to answer questions directly in visit today. States she walked to [employer] office from [place]. Poor historian. Orders: [id number] Measure Post Void residual urine and/or bladder capacity by US- non-imaging Urnls Dip Stick Auto w/o Microscopy POC 60621 Follow-up With When Contact Information Orzech ACCESS REPRESENTATIVE, PM HEAD COOK-C, Carmen X, FAM, URL In 8 weeks [...] mg ER Tab, Oral, Daily Potassium Chloride (Xsw-Fqoc-Ahq M10) 10 mEq oral tablet, extended release [...] 10:47:00) Blood Urine Di (more content not included)...[facility] Comment on above:Result Comment: Electronically Signed By: MITRA Quintero APRN, Carmen Rm\.br\Date and Time Signed: 03/07/23 14:30 ESTCardiac echo study Procedureon 70-53-5492[place]bf[place] [address] Cardiology Report Signed Patient: OZZIE GIFFORD MR#: [id number] : 1950 Acct:[id number] Age/Sex: 72 / F ADM Date: 03/01/23 Loc: CARD Attending Dr: DIANA DOZIER Ordering Physician: DIANA DOZIER Date of Service: 03/01/23 Procedure(s): CA echo w/ con Accession Number(s): [id number] cc: DIANA DOZIER Shaikh M.D. Patient Name: OZZIE GIFFORD MR#: [id number] : 1950 Exam Date: 03/01/2023 Ordering Doctor: [...] Dictated By: RUBEN SALVADOR Signed By: 03/01/23 2919 (more content not included)...TBHRadiology, Radiologist, - 03/01/2023 [place] [address] Cardiology Report Signed Patient: OZZIE GIFFORD MR#: [id number] : 1950 Acct:[id number] Age/Sex: 72 / F ADM Date: 03/01/23 Loc: CARD Attending Dr: DIANA DOZIER Ordering Physician: DIANA DOZIER Date of Service: 03/01/23 Procedure(s): CA echo w/ con Accession Number(s): [id number] cc: DIANA DOZIER ; Shaikh Pati Day Patient Name: OZZIE GIFFORD MR#: [id number] : 1950 Exam Date: 03/01/2023 Ordering Doctor: [...] SALVADOR Signed By: 03/01/231828 DD/ 26 TD/TT: Top Former: [facility] HealthcareRadiology Study observation (narrative)[facility] HealthcareCardiac echo study ProcedureOrdered By: Radiologist Radiology on 02-68-8455W[facility] Healthcare Work Phone: Urinalysis - AUTOMATEDon 61-26-8566Zuqmrwyspu (U) [employer] Other Bilirubin Ql (U)[employer] Other Color (U)[employer] Other Glucose Ql (U)[employer] Other Hemoglobin Ql (U)[employer] Other Ketones Ql (U)[employer] Other Leukocyte esterase Test strip Ql (U)NegativeJackson Florida Bank Group Other Nitrite Ql (U)NegativeJackson [employer] Other pH (U)6.0 [pH][employer] Other Protein Ql (U)NegativeTemporal Power Other Specific gravity (U) [Rel density]1.030[facility] [employer] Other Urobilinogen (U) [Mass/Vol]1.0 mg/dLJackson Florida Bank Group Other Urinalysis - AUTOMATEDJackson Florida Bank Group Other ECHOCARDIO M/2D COMPLETEon 32-99-9242YFFEIVOUQG M/2D COMPLETEPatient: OZZIE GIFFORD Exam Date: 02/21/2022 : 1950 Gender:F Ordering : DIANA DOZIER Admission #: [id number] Family : SHAIKH Korina DAY . Order #: [id number] CLICK HERE TO VIEW EXAM ECHOCARDIOGRAM REPORT [...] by: Jacklyn Doty M.D. on 02/22/2022 at 13:00[facility] HospitalVC COMP CONSULTATIONon 34-37-1996ZA COMP CONSULTATIONPatient: OZZIE GIFFORD Exam Date: 02/20/2022 : 1950 Gender:F Ordering : SHAIKH Korina DAY . Admission #: [id number] Family : Order #: [id number] CLICK HERE TO VIEW EXAM RADIOLOGY REPORT [...] her congestive heart disease up with her customs officer in the next 2 weeks. The patient [...] by: Natacha Santana MD on 02/20/2022 at 11:35[facility] HospitalVC VENOUS REFLUX IAN LMTon 68-39-1564PH VENOUS REFLUX IAN LMTPatient: OZZIE GIFFORD Exam Date: 02/20/2022 : 1950 Gender:F Ordering : SHAIKH Korina DAY . Admission #: [id number] Family : DR NATACHA SANTANA M.D. Order #: [id number] CLICK HERE TO VIEW EXAM RADIOLOGY REPORT [...] chronic thrombus visualized Compressibility: Normal Flow: Normal Drug Abuse Treatment Specialist: Dist/med calf 2.5mm with 0s reflux. Mid/med [...] by: Natacha Santana MD on 02/20/2022 at 10:30[facility] HospitalUS JANETTE DOP LEG LTon 02-11-5522GQ JANETTE DOP LEG LTINDICATION: Disorder of soft [...] Electronically authenticated by: INDRA LOZADA Date: 2022-01-31 18:39[facility] HospitalBNPon 93-25-3378Dmulxuujqde peptide B (Bld) [Mass/Vol]552.0 pg/mLNormal<=900.0The [facility] HospitalComment on above:Performed By: #### ERUR #### [facility] [address] [place] [address] Dr. Grzegorz Hurley AUTO DIFFon 04-37-2897XRAH #0.1 103/ulNormal0.0-0.1[facility] HospitalComment on above:Performed By: #### CBC #### [facility] [address] [place] [address] Dr. Grzegorz WangBasophils/100 WBC (Bld)0.9 %Normal0.2-2.0[facility] Comment on above:Performed By: #### CBC #### [facility] [address] [place] [address] Dr. Grzegorz Tellez #0.3 103/ulNormal0.0-0.7The [facility] HospitalComment on above: Performed By: #### CBC #### [facility] [address] [place] [address] Dr. Grzegorz Reisosinophils/100 WBC (Bld)5.5 %Normal0.9-7.0[facility] Comment on above:Performed By: #### CBC #### [facility] [address] [place] [address] Dr. Grzegorz Reisrythrocyte distribution width (RBC) [Ratio]13.7 %Lfuayr63.0-15.0 The [facility] HospitalComment on above:Performed By: #### CBC #### [facility] [address] [place] [address] Dr. Grzegorz WangHematocrit (Bld) [Volume fraction]41.1 %Qjyfpa59.0-48.0The [facility] HospitalComment on above:Performed By: #### CBC #### [facility] [address] [place] [address] Dr. Grzegorz WangHemoglobin (Bld) [Mass/Vol]13.4 g/wHFsczay23.0-16.0The [facility] HospitalComment on above:Performed By: #### CBC #### [facility] [address] [place] [address] Dr. Grzegorz WangIG #0.01 10e3/ulNormal0.00-0.03The [facility] HospitalComment on above:Performed By: #### CBC #### [facility] [address] [place] [address] Dr. Grzegorz WangIG %0.2 %Normal0.0-0.5The [facility] HospitalComment on above: Performed By: #### CBC #### [facility] [address] [place] [address] Dr. Grzegorz FinleyMPH #1.8 103/ulNormal1.2-3.8The [facility] HospitalComment on above:Performed By: #### CBC #### [facility] [address] [place] [address] Dr. Grzegorz Finleymphocytes/100 WBC (Bld)29.9 %Purmlw75.5-60.0The [facility] HospitalComment on above:Performed By: #### CBC #### [facility] [address] [place] [address] Dr. Grzegorz Bowers DIFF REQNONormalThe German HospitalComment on above: Performed By: #### CBC #### [facility] [address] [place] [address] Dr. Grzegorz Finley (RBC) [Entitic mass]28.2 oqUvhrfa15.7-34.0The [facility] HospitalComment on above:Performed By: #### CBC #### [facility] [address] [place] [address] Dr. Grzegorz Finley (RBC) [Mass/Vol]32.6 g/qHVxwcav38.9-35.2The German HospitalComment on above:Performed By: #### CBC #### [facility] [address] [place] [address] Dr. Grzegorz Finley (RBC) [Entitic vol]86.5 kKFiszod46.0-99.0The [facility] HospitalComment on above:Performed By: #### CBC #### [facility] [address] [place] [address] Dr. Grzegorz Wild #0.7 103/ulNormal0.3-0.8The [facility] HospitalComment on above:Performed By: #### CBC #### [facility] [address] [place] [address] Dr. Grzegorz Lemusocytes/100 WBC (Bld)11.1 %Normal1.7-12.0[facility] Comment on above:Performed By: #### CBC #### [facility] [address] [place] [address] Dr. Grzegorz Parada #3.1 103/ulNormal1.4-6.5The [facility] HospitalComment on above:Performed By: #### CBC #### [facility] [address] [place] [address] Dr. Grzegorz Omerutrophils/100 WBC (Bld)52.4 %Sbwkpp31.0-75.0The [facility] HospitalComment on above:Performed By: #### CBC #### [facility] [address] [place] [address] Dr. Grzegorz WangPlatelet mean volume (Bld) [Entitic vol]9.6 fLNormal9.5-13.5The [facility] on above:Performed By: #### CBC #### [facility] [address] [place] [address] Dr. Grzegorz WangPLT162 103/agPvpjur197-273Msx [facility] HospitalComveterans affairs medical center on above: Performed By: #### CBC #### [facility] [address] [place] [address] Dr. Grzegorz WangRBC4.75 106/ulNormal4.20-5.40The [facility] HospitalComveterans affairs medical center on above:Performed By: #### CBC #### [facility] [address] [place] [address] Dr. Grzegorz WangWBC5.9 103/ulNormal4.0-11.0The [facility] HospitalComveterans affairs medical center on above: Performed By: #### CBC #### [facility] [address] [place] [address] Dr. Grzegorz WangPROF 14(COMP METB)on 46-52-0844Jwmolom [Mass/Vol]3.4 g/dLNormal 3.4-5.0The [facility] HospitalComveterans affairs medical center on above:Performed By: #### ERUR #### [facility] [address] [place] [address] Dr. Grzegorz WangAlbumin/Globulin [Mass ratio]1.0 {ratio}NormalThe [facility] HospitalComveterans affairs medical center on above:Performed By: #### ERUR #### [facility] [address] [place] [address] Dr. Grzegorz Oleary [Catalytic activity/Vol]102 U/BImmbqm53-295Vph [facility] on above:Performed By: #### ERUR #### [facility] [address] [place] [address] Dr. Grzegorz CovarrubiasT [Catalytic activity/Vol]16 U/TLayytq35-87Jsa [facility] HospitalComveterans affairs medical center on above:Performed By: #### ERUR #### [facility] [address] [address] [address] Grzegorz Ortegaon gap [Moles/Vol]10.6 mmol/LNormalThe [facility] Comment on above:Performed By: #### ERUR #### [facility] [address] [address] [address] Grzegorz WangAST [Catalytic activity/Vol]18 U/NNaxwdt56-37Ork [facility] HospitalComment on above:Performed By: #### ERUR #### [facility] [address] [address] [address] Grzegorz WangBilirubin [Mass/Vol]0.4 mg/dLNormal0.2-1.0[facility] Comment on above:Performed By: #### ERUR #### [facility] [address] [place] [address] Dr. Grzegorz WangCalcium [Mass/Vol]9.0 mg/dLNormal8.5-10.1[facility] Comment on above:Performed By: #### ERUR #### [facility] [address] [place] [address] Dr. Grzegorz WangChloride [Moles/Vol]103 mmol/OUquizo82-763AxiMercy Memorial Hospital Comment on above:Performed By: #### ERUR #### [facility] [address] [place] [address] Dr. Grzegorz WangCO2 [Moles/Vol]31.4 mmol/VImdqin21.0-32.0[facility] Comment on above:Performed By: #### ERUR #### [facility] [address] [place] [address] Dr. Grzegorz WangCreatinine [Mass/Vol]0.80 mg/dLNormal0.55-1.02The [facility] HospitalComment on above:Performed By: #### ERUR #### [facility] [address] [address] [address] Lantigua ChangEGFR-AF TOGOLESE>60Normal>=60The German HospitalComment on above:Performed By: #### ERUR #### [facility] [address] [address] [address] Grzegorz ReisGFR-NON AF TOGOLESE>60Normal>=60The [facility] HospitalComment on above:Performed By: #### ERUR #### [facility] [address] [address] [address] Grzegorz WangGlobulin (S) [Mass/Vol]3.4 g/dLNormMartin Memorial HospitalComment on above:Performed By: #### ERUR #### [facility] [address] [address] [address] Grzegorz WangGlucose [Mass/Vol]78 mg/tKArtyfm60-342EnlMercy Memorial Hospital Comment on above:Performed By: #### ERUR #### [facility] [address] [place] [address] Dr. Grzegorz WangPotassium [Moles/Vol]3.0 mmol/LCritically low3.5-5.1The [facility] HospitalComment on above:Performed By: #### ERUR #### [facility] [address] [address] [address] Grzegorz WangProtein [Mass/Vol]6.8 g/dLNormal6.4-8.2[facility] Comment on above:Performed By: #### ERUR #### [facility] [address] [address] [address] Grzegorz WagnSodium [Moles/Vol]142 mmol/DPoubpk180-753IysMercy Memorial Hospital Comment on above:Performed By: #### ERUR #### [facility] [address] [address] [address] Grzegorz WangUrea nitrogen [Mass/Vol]14.0 mg/dLNormal7.0-18.0The [facility] HospitalComment on above:Performed By: #### ERUR #### [facility] [address] [place] [address] Dr. Grzegorz WangUrea nitrogen/Creatinine [Mass ratio]17.5 mg/mgNormalThOhioHealth Arthur G.H. Bing, MD, Cancer CenterComment on above:Performed By: #### ERUR #### [facility] [address] [address] [address] Grzegorz Ruiz JANETTE DOP LEG LTon 86-59-0180CX JANETTE DOP LEG LTEXAM: US JANETTE DOP [...] Electronically authenticated by: MIRI BALTAZAR Date: 2022-01-22 16:38[facility] HospitalLIPID PROFILEon 26-97-4244GDWB-HDL RATIO NORMSEE BELOWNorwalk Memorial HospitalComment on above:Result Comment: 3.3 - 4.4 LOW RISK 4.4 - 7.1 AVERAGE RISK 7.1 - 11.0 MODERATE RISK >11.0 HIGH RISKPerformed By: #### PALOMA, LIPA #### [facility] [address] [place] [address] Dr. Grzegorz Guyesterol [Mass/Vol]125 mg/dLNormal<=200[facility] Comment on above:Performed By: #### PALOMA, LIPA #### [facility] [address] [address] [address] Grzegorz WangCholesterol in HDL [Mass/Vol]69 mg/dLCritically gumh44-88Rqh German HospitalComment on above:Performed By: #### PALOMA, LIPA #### [facility] [address] [address] [address] Grzegorz WangCholesterol in LDL [Mass/Vol]40.0 mg/dLNorwalk Memorial HospitalComment on above:Performed By: #### PALOMA, LIPA #### [facility] [address] [address] [address] Grzegorz Diaz.total/Cholesterol in HDL [Mass ratio]1.8 {ratio} NormalThe German HospitalComment on above:Performed By: #### PALOMA, LIPA #### [facility] [address] [address] [address] Grzegorz Fernández NORMAL> or = 60 mg/dl - LOW CARDIOVASCULAR RISK <40 mg/dl - HIGH CARDIOVASCULAR RISKNorwalk Memorial HospitalComment on above:Performed By: #### PALOMA, LIPA #### [facility] [address] [address] [address] Grzegorz WangLDL CALC NORMALSEE BELOWNoFirelands Regional Medical CenterComment on above:Result Comment: <100 mg/dl OPTIMAL 100 - 129 mg/dl NEAR OR ABOVE OPTIMAL 130 - 159 mg/dl BORDERLINE HIGH 160 - 189 mg/dl HIGH >190 mg/dl VERY HIGH Performed By: #### PALOMA, LIPA #### [facility] [address] [place] [address] Dr. Grzegorz WangTriglyceride [Mass/Vol]80 mg/dLNormal<=150[facility] Comment on above:Performed By: #### PALOMA, LIPA #### [facility] [address] [address] [address] Grzegorz AbarcaLDL CALC16.0 mg/dLNorwalk Memorial HospitalComment on above: Performed By: #### PALOMA, LIPA #### [facility] [address] [place] [address] Dr. Grzegorz Ruiz PELVISon 50-23-7214ST PELVISEXAMINATION: US PELVIS HISTORY: Cyst of ovary [...] Electronically authenticated by: MITZI CHAU Date: 2022-01-18 10:31NoFirelands Regional Medical CenterXR CHEST 2 Von 07-40-7397KC CHEST 2 VEXAMINATION: XR CHEST 2 V [...] cardiopulmonary process. Stable chest. Electronically authenticated by: MIZTI CHAU Date: 2022-01-03 10:48NoFirelands Regional Medical CenterUS PELVISon 55-12-1186FF PELVISEXAMINATION: US PELVIS HISTORY: Cyst of ovary [...] Electronically authenticated by: MITZI CHAU Date: 2021-12-07 17:20NoFirelands Regional Medical CenterPROF CHEM 8 (BAS METB)on 36-70-8191Fvops gap [Moles/Vol]13.0 mmol/LNormalMercy Memorial HospitalComment on above:Performed By: #### PALOMA, LIPA #### [facility] [address] [place] [address] Dr. Grzegorz WangCalcium [Mass/Vol]8.9 mg/dLNormal8.5-10.1[facility] Comment on above:Performed By: #### PALOMA, LIPA #### [facility] [address] [address] [address] Grzegorz WangChloride [Moles/Vol]105 mmol/GQqhvhg11-198Feo [facility] Comment on above:Performed By: #### PALOMA, LIPA #### [facility] [address] [address] [address] Grzegorz WangCO2 [Moles/Vol]29.0 mmol/OZagvrq99.0-32.0[facility] Comment on above:Performed By: #### PALOMA, LIPA #### [facility] [address] [address] [address] Grzegorz WangCreatinine [Mass/Vol]0.79 mg/dLNormal0.55-1.02[facility] HospitalComment on above:Performed By: #### PALOMA, LIPA #### [facility] [address] [address] [address] Grzegorz ReisGFR-AF TOGOLESE>60Normal>=60The [facility] HospitalComment on above:Performed By: #### PALOMA, LIPA #### [facility] [address] [address] [address] Grzegorz ReisGFR-NON AF TOGOLESE>60Normal>=60The [facility] HospitalComment on above:Performed By: #### PALOMA, LIPA #### [facility] [address] [address] [address] Grzegorz WangGlucose [Mass/Vol]79 mg/hZFbwtvi47-835Nqg [facility] Comment on above:Performed By: #### PALOMA, LIPA #### [facility] [address] [address] [address] Grzegorz WangPotassium [Moles/Vol]3.0 mmol/LCritically low3.5-5.1The [facility] HospitalComment on above:Performed By: #### PALOMA, LIPA #### [facility] [address] [address] [address] Grzegorz WangSodium [Moles/Vol]144 mmol/SBbfiaf430-427Jgn [facility] Comment on above:Performed By: #### PALOMA, LIPA #### [facility] [address] [address] [address] Grzegorz Padron nitrogen [Mass/Vol]12.0 mg/dLNormal7.0-18.0The [facility] HospitalComment on above:Performed By: #### PALOMA, LIPA #### [facility] [address] [address] [address] Grzegorz Padron nitrogen/Creatinine [Mass ratio]15.2 mg/mgNormalThe German HospitalComment on above:Performed By: #### PALOMA, LIPA #### [facility] [address] [place] [address] Dr. Grzegorz WangVITAMIN B12on 47-02-9756Awjzvrehp (Vitamin B12) [Mass/Vol]5661.0 pg/mLCritically rrnx537.0-986.0The [facility] HospitalComment on above:Performed By: #### ERUR #### [facility] [address] [place] [address] Dr. Grzegorz WangBNPon 10-67-4082Wrlomqiilyg peptide B (Bld) [Mass/Vol]1245.0 pg/mLCritically high<=900.0The [facility] HospitalComment on above:Performed By: #### PALOMA, LIPA #### [facility] [address] [place] [address] Dr. Grzegorz WangBacterial blood cultureOrdered By: Ashleigh Rashid on 11-26-2021 Bacteria identified Cx Nom (Bld)NO GROWTH 5 DAYSCleveland Clinic Medina HospitalCARDIAC BAMBI ADMITon [id number] [Catalytic activity/Vol]75 U/LNormal 26-192The German HospitalComment on above:Performed By: #### PALOMA, LIPA #### [facility] [address] [place] [address] Dr. Grzegorz Waters.MB [Mass/Vol]1.58 ng/mLNormal<=3.60[facility] Comment on above:Performed By: #### PALOMA, LIPA #### [facility] [address] [address] [address] Grzegorz WangHSTROP13.3 pg/mLNormal4.0-51.3The German HospitalComment on above:Result Comment: CUT-OFF POINTS HAVE BEEN ESTABLISHED BASED ON THE FOURTH UNIVERSAL DEFINITIONS OF MYOCARDIAL INFARCTION. THE UPPER REFERENCE LIMIT (URL) OF TROPONIN, DEFINED THE 99TH PERCENTILE OF cTnI DISTRIBUTION IN A REFERENCE POPULATION, HAS BEEN CONFIRMED THE DECISION THRESHOLD FOR [place] DIAGNOSIS.Performed By: #### PALOMA, LIPA #### [facility] [address] [place] [address] Dr. Grzegorz Royal85 ng/mLCritically high9-82The German HospitalComment on above:Performed By: #### PALOMA, LIPA #### [facility] [address] [place] [address] Dr. Grzegorz Hurley AUTO DIFFon [id number] #0.0 103/ulNormal0.0-0.1The German HospitalComment on above:Performed By: #### PALOMA, LIPA #### [facility] [address] [place] [address] Dr. Grzegorz WangBasophils/100 WBC (Bld)0.5 %Normal0.2-2.0[facility] Comment on above:Performed By: #### PALOMA, LIPA #### [facility] [address] [place] [address] Dr. Grzegorz Tellez #0.1 103/ulNormal0.0-0.7The German HospitalComment on above: Performed By: #### PALOMA, LIPA #### [facility] [address] [place] [address] Dr. Grzegorz Reisosinophils/100 WBC (Bld)1.3 %Normal0.9-7.0[facility] Comment on above:Performed By: #### PALOMA, LIPA #### [facility] [address] [place] [address] Dr. Grzegorz Reisrythrocyte distribution width (RBC) [Ratio]16.8 %Critically high 11.0-15.0The German HospitalComment on above:Performed By: #### PALOMA, LIPA #### [facility] [address] [place] [address] Dr. Grzegorz Srivastavaatochristinet (Bld) [Volume fraction]36.6 %Praluf09.0-48.0The German HospitalComment on above:Performed By: #### PALOMA, LIPA #### [facility] [address] [place] [address] Dr. Grzegorz WangHemoglobin (Bld) [Mass/Vol]12.1 g/hLHfpqov48.0-16.0The German HospitalComment on above:Performed By: #### PALOMA, LIPA #### [facility] [address] [place] [address] Dr. Grzegorz Barbosa #0.03 10e3/ulNormal0.00-0.03The German HospitalComment on above:Performed By: #### PALOMA, LIPA #### [facility] [address] [place] [address] Dr. Grzegorz Barbosa %0.5 %Normal0.0-0.5The German HospitalComment on above: Performed By: #### PALOMA, LIPA #### [facility] [address] [place] [address] Dr. Grzegorz Soriano #0.9 103/ulCritically low1.2-3.8[facility] Comment on above:Performed By: #### PALOMA, LIPA #### [facility] [address] [place] [address] Dr. Grzegorz Wilkinshocytes/100 WBC (Bld)15.4 %Critically low20.5-60.0The German HospitalComment on above:Performed By: #### PALOMA, LIPA #### [facility] [address] [place] [address] Dr. Grzegorz AriasUAL DIFF REQNONormalThe German HospitalComment on above: Performed By: #### PALOMA, LIPA #### [facility] [address] [place] [address] Dr. Grzegorz Delaney (RBC) [Entitic mass]27.7 toZjodnh55.7-34.0The German HospitalComment on above:Performed By: #### PALOMA, LIPA #### [facility] [address] [place] [address] Dr. Grzegorz Finley (RBC) [Mass/Vol]33.1 g/gGSrxsxl66.9-35.2The German HospitalComment on above:Performed By: #### PALOMA, LIPA #### [facility] [address] [place] [address] Dr. Grzegorz WangNOR[facility] [place] (RBC) [Entitic vol]83.8 uCSajgct52.0-99.0The German HospitalComment on above:Performed By: #### PALOMA, LIPA #### [facility] [address] [place] [address] Dr. Grzegorz Wild #0.5 103/ulNormal0.3-0.8The German HospitalComment on above:Performed By: #### PALOMA, LIPA #### [facility] [address] [place] [address] Dr. Grzegorz Lemusocytes/100 WBC (Bld)7.8 %Normal1.7-12.0[facility] Comment on above:Performed By: #### PALOMA, LIPA #### [facility] [address] [place] [address] Dr. Grzegorz Parada #4.5 103/ulNormal1.4-6.5The German HospitalComment on above:Performed By: #### PALOMA, LIPA #### [facility] [address] [place] [address] Dr. Grzegorz Omerutrophils/100 WBC (Bld)74.5 %Wgwcfx75.0-75.0The German HospitalComment on above:Performed By: #### PALOMA, LIPA #### [facility] [address] [place] [address] Dr. Grzegorz Corteslet mean volume (Bld) [Entitic vol]11.2 fLNormal9.5-13.5The [facility] Hospitalment on above:Performed By: #### PALOMA, LIPA #### [facility] [address] [address] [address] Grzegorz WangPLT187 103/ijVnbwjk839-919Nbv German HospitalComveterans affairs medical center on above: Performed By: #### PALOMA, LIPA #### [facility] [address] [address] [address] Grzegorz WangRBC4.37 106/ulNormal4.20-5.40The [facility] HospitalComveterans affairs medical center on above:Performed By: #### PALOMA, LIPA #### [facility] [address] [address] [address] Grzegorz WangWBC6.0 103/ulNormal4.0-11.0The [facility] on above: Performed By: #### PALOMA, LIPA #### [facility] [address] [place] [address] Dr. Grzegorz WangCT ABD/PELVIS WO CONon [id number] ABD/PELVIS WO CONEXAMINATION: CT ABD/PELVIS WO CON, [...] Electronically authenticated by: MANDI MANRIQUEZ Date: 2021-11-26 15:08[facility] WO CONon [id number] [facility] WO CONEXAMINATION: CT HEAD WO CON, CT [...] authenticated by: SHANIA WASHINGTON Date: 2021-11-26 14:44 [facility] URINE PROFILEon [id number] Ql (U)Negative NormalNEGATIVEMercy Memorial HospitalComment on above:Performed By: #### CBC #### [facility] [address] [place] [address] Dr. Grzegorz Lovearity (U)CLEARNormalCLEARMercy Memorial HospitalComment on above: Performed By: #### CBC #### [facility] [address] [place] [address] Dr. Grzegorz Delvalle (U)LT. YELLOWNormalYELLOWMercy Memorial HospitalComment on above:Performed By: #### CBC #### [facility] [address] [place] [address] Dr. Grzegorz Dawson micrscopic examination will be performed if indicated. NormalMercy Memorial HospitalComment on above:Performed By: #### CBC #### [facility] [address] [address] [address] Grzegorz WangGlucose Ql (U)NegativeNormalNEGATIVEMercy Memorial HospitalComment on above:Performed By: #### CBC #### [facility] [address] [place] [address] Dr. Grzegorz WangHemoglobin Ql (U)TRACE-INTACTAbnormalNEGATIVEMercy Memorial HospitalComment on above:Performed By: #### CBC #### [facility] [address] [place] [address] Dr. Grzegorz WangKetones Ql (U)NegativeNormalNEGATIVEMercy Memorial HospitalComment on above:Performed By: #### CBC #### [facility] [address] [place] [address] Dr. Grzegorz WangLEUKOCYTESNegativeNormalNEGATIVEMercy Memorial HospitalComment on above:Performed By: #### CBC #### [facility] [address] [place] [address] Dr. Grzegorz Álvareztrashley Ql (U)NegativeNormalNEGATIVEThe German HospitalComment on above:Performed By: #### CBC #### [facility] [address] [address] [address] Grzegorz WangpH (U)5.5 [pH]Normal5-9The German HospitalComment on above: Performed By: #### CBC #### [facility] [address] [address] [address] Grzegorz WangSPEC GRAVITY<=1.834Ftttdzjy4.005-<=1.025[facility] Comment on above:Performed By: #### CBC #### [facility] [address] [place] [address] Dr. Grzegorz Jones PROTEINNegativeNormalNEGATIVE/ TRACEThe [facility] Comment on above:Performed By: #### CBC #### [facility] [address] [place] [address] Dr. Grzegorz Durham MICRO INDINDICATEDNormalThOhioHealth Arthur G.H. Bing, MD, Cancer CenterComment on above: Performed By: #### CBC #### [facility] [address] [place] [address] Dr. Grzegorz Hsubilinogen Qn (U)0.2 {Lidya'U}/dLNormal0.2 - 1.0The German HospitalComment on above:Performed By: #### CBC #### [facility] [address] [place] [address] Dr. Grzegorz WangPROF 14(COMP METB)on 30-88-1481Vqcwoxh [Mass/Vol]3.5 g/dLNormal 3.4-5.0The German HospitalComment on above:Performed By: #### PALOMA, LIPA #### [facility] [address] [place] [address] Dr. Grzegorz WangAlbumin/Globulin [Mass ratio]1.1 {ratio}NormalMercy Memorial HospitalComment on above:Performed By: #### PALOMA, LIPA #### [facility] [address] [place] [address] Dr. Grzegorz Oleary [Catalytic activity/Vol]89 U/HFixlgq83-508Jmf German HospitalComment on above:Performed By: #### PALOMA, LIPA #### [facility] [address] [place] [address] Dr. Grzegorz Cummings [Catalytic activity/Vol]22 U/NPhbfxt53-35Iow German HospitalComment on above:Performed By: #### PALOMA, LIPA #### [facility] [address] [place] [address] Dr. Grzegorz Peters gap [Moles/Vol]10.2 mmol/LNormalThe [facility] Comment on above:Performed By: #### PALOMA, LIPA #### [facility] [address] [place] [address] Dr. Grzegorz Wilcox [Catalytic activity/Vol]18 U/NUjpoir62-79Qso [facility] Hospitalment on above:Performed By: #### PALOMA, LIPA #### [facility] [address] [place] [address] Dr. Grzegorz WangBilirubin [Mass/Vol]0.6 mg/dLNormal0.2-1.0[facility] Comment on above:Performed By: #### PALOMA, LIPA #### [facility] [address] [place] [address] Dr. Grzegorz WangCalcium [Mass/Vol]9.1 mg/dLNormal8.5-10.1[facility] Comment on above:Performed By: #### PALOMA, LIPA #### [facility] [address] [place] [address] Dr. Grzegorz WangChloride [Moles/Vol]106 mmol/JSqmvcx70-844Xpg [facility] Comment on above:Performed By: #### PALOMA, LIPA #### [facility] [address] [place] [address] Dr. Grzegorz WangCO2 [Moles/Vol]29.5 mmol/SEbkzka47.0-32.0[facility] Comment on above:Performed By: #### PALOMA, LIPA #### [facility] [address] [place] [address] Dr. Grzegorz WangCreatinine [Mass/Vol]0.86 mg/dLNormal0.55-1.02[facility] Memorial HospitalComment on above:Performed By: #### PALOMA, LIPA #### [facility] [address] [address] [address] Grzegorz ReisGFR-AF TOGOLESE>60Normal>=60The German HospitalComment on above:Performed By: #### PALOMA, LIPA #### [facility] [address] [place] [address] Dr. Grzegorz ReisGFR-NON AF TOGOLESE>60Normal>=60The German HospitalComment on above:Performed By: #### PALOMA, LIPA #### [facility] [address] [place] [address] Dr. Grzegorz WangGlobulin (S) [Mass/Vol]3.1 g/dLNormalThe German HospitalComment on above:Performed By: #### PALOMA, LIPA #### [facility] [address] [place] [address] Dr. Grzegorz WangGlucose [Mass/Vol]98 mg/gBSbtmtr07-361GuqMercy Memorial Hospital Comment on above:Performed By: #### PALOMA, LIPA #### [facility] [address] [place] [address] Dr. Grzegorz WangPotassium [Moles/Vol]2.7 mmol/LCritically low3.5-5.1The German HospitalComment on above:Performed By: #### PALOMA, LIPA #### [facility] [address] [place] [address] Dr. Grzegorz WangProtein [Mass/Vol]6.6 g/dLNormal6.4-8.2[facility] Comment on above:Performed By: #### PALOMA, LIPA #### [facility] [address] [place], [place] [address] Dr. Grzegorz Hernandezum [Moles/Vol]143 mmol/WDaygsm304-309ObrMercy Memorial Hospital Comment on above:Performed By: #### PHIL DOW #### [facility] [address] [place] [address] Dr. Grzegorz Padron nitrogen [Mass/Vol]12.0 mg/dLNormal7.0-18.0The German HospitalComment on above:Performed By: #### PHIL DOW #### [facility] [address] [place] [address] Dr. Grzegorz Padron nitrogen/Creatinine [Mass ratio]14.0 mg/mgNoFirelands Regional Medical CenterComment on above:Performed By: #### PHIL DOW #### [facility] [address] [place] [address] Dr. Grzegorz Borja [id number] Coag (PPP) [Relative time]1.00 {INR} NormalThe German HospitalComment on above:Performed By: #### CBC #### [facility] [address] [place] [address] Dr. Grzegorz Hercules GUIDELINESSEE BELOWNorwalk Memorial HospitalComment on above:Result Comment: DESIRED INR: 2.0 - 3.0 CONDITIONS NOT LISTED BELOW 2.5 - 3.5 FOR PROSTHETIC HEART VALVE REPLACEMENT 2.5 - 3.5 RECURRENT THROMBOSIS Performed By: #### CBC #### [facility] [address] [place] [address] Dr. Grzegorz Davis Coag (PPP) [Time]10.8 sNormal9.0-11.6[facility] Comment on above:Performed By: #### CBC #### [facility] [address] [place] [address] Dr. Grzegorz Aguilar [id number] Coag (Bld) [Time]23.1 bRtkeyx38.3-36.2The [facility] Hospitalment on above:Performed By: #### CBC #### [facility] [address] [place] [address] Dr. Grzegorz De Oliveira MICROSCOPIC ONLYon [id number] SEENNormalNONE SEENMercy Memorial HospitalComveterans affairs medical center on above:Performed By: #### CBC #### [facility] [address] [place] [address] Dr. Grzegorz Valentin identified Cx Nom (U)NOT INDICATEDNoalThOhioHealth Arthur G.H. Bing, MD, Cancer CenterComveterans affairs medical center on above:Performed By: #### CBC #### [facility] [address] [place] [address] Dr. Grzegorz WangCASTRHIANNON SEENNormalNONE SEENMercy Memorial HospitalComveterans affairs medical center on above:Performed By: #### CBC #### [facility] [address] [place] [address] Dr. Grzegorz Seguraystals LM Nom (Urine sed)NONE SEENNormalNONE SEENMorrow County Hospital on above:Performed By: #### CBC #### [facility] [address] [place] [address] Dr. Grzegorz Nuñezthelial cells LM Ql (Urine sed)FEWAbnormalNONE SEEN /RAREThe German HospitalComveterans affairs medical center on above:Performed By: #### CBC #### [facility] [address] [place] [address] Dr. Grzegorz SaldañaCOUSALMAE SEENNormalNONE SEENMorrow County Hospital on above:Performed By: #### CBC #### [facility] [address] [place] [address] Dr. Grzegorz WangZyyhoARO1-8Twyooy2-3Eri Belle[facility] HospitalComveterans affairs medical center on above:Performed By: #### CBC #### [facility] [address] [place] [address] Dr. Grzegorz WangWBC0-2AbnormalNONE SEENMercy Memorial HospitalComveterans affairs medical center on above: Performed By: #### CBC #### [facility] [address] [place] [address] Dr. Grzegorz WangXR CHEST 1 Von [id number] CHEST 1 VEXAM: Chest x-ray HISTORY: . Asthenia . COMPARISON: 09/02/2021 TECHNIQUE: Single view of the chest. FINDINGS: Heart and vascularity are unremarkable. Lungs are free of focal infiltrates. Loop recorder overlies the left heart border. Atherosclerotic changes of the thoracic aorta are noted. Impression: No acute heart or lung disease identified. Electronically authenticated by: NATACHA JAUREGUI Date: 2021-11-26 14:21[facility] BRAIN HEAD WO CONTRASTon [id number] BRAIN HEAD WO CONTRAST EXAM DESCRIPTION: CT [...] MD 11/24/2021 1:21 PM CDT Technologist: WENDY CHAEVZ Dictated By: ISMAEL AGUILAR MD Signed By: ISMAEL AGUILAR MD Signed Out: 11/24/21 14:21:18[facility] CenterED Adult Data - Texton [id number] Adult Data - TextED Adult Data Entered [...] PNED ; Probability: 0 ; Diagnosis Code: [id number] Fall Date: 11/24/2021 ; Diagnosis Type: Reason For Visit ; Confirmation: Confirmed ; Clinical Dx: Fall ; Classification: Medical ; Clinical Service: Emergency medicine ; Code: PNED ; Probability: 0 ;Diagnosis Code: [id number] Procedure History ED Devices Present on Arrival [...] risk situation (congregated living, hemodialysis, infusion clinic, [place] [facility] [place], assisted living, longterm, homeless fdc, etc.)? : No Fabio BATISTA, Jennifer - 11/24/2021 15:25 [facility] Discharge [facility] [id number] Discharge EducationDermatology Cuts Closed With [place]: Care Instructions Your Care Instructions A cut can happen anywhere on your body. The doctor used kemi to close the cut. [place] easily and quickly close a cut, which helps the cut heal. Sometimes a cut can injure tendons, blood vessels, or nerves. If the cut went deep and through the skin, the doctor may have put in a layer of stitches below the keim. The deeper layer of stitchesbrings the deep [...] your doctor if you can take an lflb-voc-docefvd medicine. When should you call for help? [...] Where can you learn more? Go to https://www.[employer].net/patientEd Enter E525 in the search box to learn more about Cuts Closed With [place]: Care Instructions. Current as of: April 08, 2019 Content Version: 12.7 ? [employer]. Care instructions adapted under license by your healthcare professional. If you have questions about a medical condition or this instruction, always ask your healthcare professional. [employer] disclaims any warranty or liability for your [...] He domo will (more content not included)... [facility] CenterED Emergency Severity Index Adult-Texton [id number] Emergency Severity Index Adult-TextESI - Adult Entered On: 11/24/2021 12:33 EDT Performed On: 11/24/2021 12:33 EDT by Jennifer Mccarthy RN JUSTINO DCP GENERIC CODE Visit Reason : FALL Tracking Triage Date/Time : 11/24/2021 12:33 EDT Tracking Reg Status : Requested Tracking Acuity : 3V-Urgent Tracking Group : SGEN Tracking Jennifer Mccarthy RN - 11/24/2021 12:33 EDTNoUniversity Hospitals [facility] CenterED Nrsing Adlt Triage Sep Scrning - Texton [id number] Nrsing Adlt Triage Sep Scrning - TextED Nursing Adult Triage Sepsis Screening Tool Entered On: 11/24/2021 13:00 EDT Performed On: 11/24/2021 13:00 EDT by Jennifer Mccarthy RN Adult Sepsis Screening Sepsis Infection Screening ED : Yes Sepsis Vitals Screening ED : None/ NA(Peds) Jennifer Mccarthy RN - 11/24/2021 13:00 EDTMet[facility] CenterED Patient Summaryon [id number] Patient SummaryThe [facility] Discharge Instructions [address] [place] [address] \.br\(Patient Copy)\.br\ \.br\Name: OZZIE GIFFORD : 1950 \.br\Allergies: penicillin\.br\Diagnosis: Accidental fall; CHI (closed head injury); Contusion of rib on rightside; Laceration of scalp\.br\ \.br\ Visit Date: 11/24/2021 12:30:03 \.br\ Current Date Time: 11/24/2021 17:30:08 \.br\Address: [address] [place], [place] [address] [address] \.br\ \.br\ \.br\Primary Care Provider: \.br\Name: NO FAMILY PHYSICIAN, 837\.br\Phone: \.br\ \.br\Emergency Department Care Providers: \.br\ Primary Physician: LUIS DARNELL MD \.br\.br\ \.br\.br\Thank you for choosing [facility] for your emergency care. You are very important to us. Our goal is to demonstrate our high quality medical care, and provide you with a very good patient experience.\.br\.br\You may receive a survey about our service. Please take the time tocomplete the survey and return it so we can continue to enhance our service.\.br\.br\Thank you zaki katz for allowing the [facility] Emergency Department to care for your medical needs. If you have questions about your care or follow up information please contact us at [phone].\.br\.br\ Follow-Up Instructions\.br\ \.br\OZZIE GIFFORD has been given these follow-up instructions:\.br\.br\.br\With: Address: When: \.br\[facility] [address], [address] [place] [address]\.[phone] Business (1) Within 7 to 10 days \.br\.br\.br\With: Address: When: \.br\[address] NO FAMILY PHYSICIAN Within 3 to 5 days \.br\.br\.br\.br\.br\Patient Education Materials\.br\ \.br\OZZIE GIFFORD has been given the followingpatient education materials:\.br\.br\Cuts Closed With [place]: Care Instructions\.br\Your Care Instructions\.br\A cut can happen [...] your doctor if you can take an zrbg-mbp-efsgfgk medicine.\.br\When should you call for help?\.br\ Call [...] do not get b (more content not included)...[facility] CenterED Physician Reporton [id number] Physician Report Patient: OZZIE GIFFORD Age: 71 [...] [facility]: Posterior head. The character of symptoms is pain. Therapy today: see nurses notes. Associated symptoms: denies loss of consciousness. This is a 71 y/o female presenting to the ED via EMS for evaluation of a mechanical fall. The [place] [employer] and she was going down steps and [...] tenderness, no swelling, no deformity. Psychiatric: Cooperative. [place] coma scale Eye response: 4 /4, verbal [...] BRAIN HEAD WO CONTRAST (more content not included)...[facility] CenterED Pre-Arrival Formon [id number] Pre-Arrival FormPre-Arrival Summary Name: KARTIK, Current Date: 11/24/2021 12:31:19 EDT Gender: Date of : Age: Pre-Arrival Type: EMS ETA: 11/24/2021 12:53:00 EDT Primary Care Physician: Presenting Problem: Pre-Arrival User: Kailyn Jacobs RN Referring Source: Location: [address] [place] [address] Emergency Department [address] [place] [id number] Notes: Vital Signs: Doctor Call Back: DNR Status: Miscellaneous Issues:[facility] CenterED Progress Noteon [id number] Progress NotePt presents to ED via EMS [...] verbalized understanding, pt ambulatory with steady gait elect Medical [facility] Triage Adult-Text on [id number] Triage Adult-TextED Triage Entered On: 11/24/2021 13:00 EDT Performed On: 11/24/2021 12:59 EDT by Jennifer Mccarthy RN Triage (As Of: 11/24/2021 13:00:25 EDT) Diagnoses(Active) Fall Date: 11/24/2021 ; Diagnosis Type: Reason For Visit ; Confirmation: Confirmed ; Clinical Dx: Fall ; Classification: Medical ; Clinical Service: Non- Specified ; Code: PNED ; Probability: 0 ; Diagnosis Code: [id number] (As Of: 11/24/2021 13:00:25 EDT) Vitals/Ht/Wt Temperature [...] Jennifer Mccarthy RN - 11/24/2021 12:59 EDT iddletown HospitalUrine culture routineOrdered By: Rafiq Bahena on 00-01-5560Evtxyisg identified Cx Nom (U) Escherichia coliCleveland Clinic Medina HospitalAlbumin [Mass/volume] in Serum or PlasmaOrdered By: Ashleigh Rashid on 68-79-6079Miytvug [Mass/Vol]3.0 g/dL3.2-5.5 [facility] HospitalBasophils Auto (Bld) [#/Vol]Ordered By: Ashleigh Rashid on 83-38-7898Wzxspqihl (Bld) [#/Vol]0.0 10*3/uL0.0-0.2FBarnesville HospitalBasophils/100 WBC Auto (Bld)Ordered By: Ashleigh Rashid on 11-22-2021 Basophils/100 WBC (Bld)0.6 %.[facility] HospitalCreatinine and Glomerular filtration rate.predicted panel (S/P/Bld)Ordered By: Ashleigh Rashid on 18-54-4593Xbdbcadpfy [Mass/Vol]1.10 mg/dL0.44-1.03[facility] Medina HospitalComment on above:Delta: 2.08 on 11/21/21Eosinophils Auto (Bld) [#/Vol]Ordered By: Ashleigh Rashid on 27-07-0254Rufkwbhgkbs (Bld) [#/Vol]0.2 10*3/uL 0.0-0.45[facility] Clinic Med[facility] HospitalEosinophils/100 WBC Auto (Bld)Ordered By: Ashleigh Rashid on 77-84-9655Fxosoavgqfa/100 WBC (Bld)4.4 %.[facility] Clinic Medina HospitalErythrocyte distribution width Auto (RBC) [Ratio]Ordered By: Ashleigh Rashid on 93-81-7674Mqnwfvnmjco distribution width (RBC) [Ratio]20.7 %11.9-15.3 [facility] HospitalEstimated glomerular filtration rate (GFR) non- AmericanOrdered By: Ashleigh Rashid on 12-83-3422WPF/1.73 sq M.predicted among non-blacks MDRD (S/P/Bld) [Vol rate/Area]49 mL/MinCleveland Clinic Medina HospitalGlobulin Calc (S) [Mass/Vol]Ordered By: Ashleigh Rashid on 54-71-5792Jrwebuqb (S) [Mass/Vol]2.4 g/dLCleveland Clinic Medina HospitalHematocrit Auto (Bld) [Volume fraction]Ordered By: Ashleigh Rashid on 67-69-7135Uzutkwrfot (Bld) [Volume fraction]36.9 %34.0-46.4FBarnesville HospitalHemoglobin [Mass/volume] in BloodOrdered By: Ashleigh Rashid on 92-76-3507Jwxevilxim (Bld) [Mass/Vol]12.1 g/dL11.8-15.4FBarnesville HospitalLaboratory - Chemistry and Chemistry - challengeOrdered By: Ashleigh Rashid on 15-68-4302Tgntwrjtc [Mass/Vol]2.1 mg/dL1.6-2.6FBarnesville HospitalLaboratory - Hematology and Cell countsOrdered By: Ashleigh Rashid on 26-94-7572Hlawgsrlz RBC/100 WBC (Bld) [Ratio]0.1 %0-0.5FBarnesville HospitalLeukocytes [#/volume] in Blood by Automated countOrdered By: Ashleigh Rashid on 12-42-3474VFP (Bld) [#/Vol]4.7 10*3/uL4.5-11.0[facility] HospitalLymphocytes Auto (Bld) [#/Vol]Ordered By: Ashleigh Rashid on 61-61-2015Kwatbtisucl (Bld) [#/Vol] 1.2 10*3/uL1.00-4.8[facility] HospitalLymphocytes/100 WBC Auto (Bld)Ordered By: Ashleigh Rashid on 07-94-2124Iwofglitiep/100 WBC (Bld)26.0 %. [facility] Auto (RBC) [Entitic mass]Ordered By: Ashleigh Rashid on 51-42-6139NRL (RBC) [Entitic mass]27.2 pg24.7-34.3FBarnesville HospitalMCHC Auto (RBC) [Mass/Vol]Ordered By: Ashleigh Rashid on 93-16-3058ZFRT (RBC) [Mass/Vol]32.6 g/dL32.0-35.0[facility] HospitalMCV Auto (RBC) [Entitic vol]Ordered By: Ashleigh Rashid on 52-35-4265RWQ (RBC) [Entitic vol] 83.5 hR28-426HqmwmeyanCleveland Clinic Medina HospitalMonocytes Auto (Bld) [#/Vol] Ordered By: Ashleigh Rashid on 99-38-7377Nwvgycztt (Bld) [#/Vol]0.4 10*3/uL0.0-0.8 [facility] HospitalMonocytes/100 WBC Auto (Bld)Ordered By: Ashleigh Rashid on 65-37-0444Dqjznnehe/100 WBC (Bld)8.4 %.[facility] Neutrophils Auto (Bld) [#/Vol]Ordered By: Ashleigh Rashid on 86-46-6063Vuzbehkbpee (Bld) [#/Vol]2.8 10*3/uL1.8-7.7FBarnesville HospitalNeutrophils/100 WBC Auto (Bld)Ordered By: Ashleigh Rashid on 43-82-1983Rclfvttgupm/100 WBC (Bld)60.6 % .[facility] HospitalNo Panel InformationOrdered By: Ashleigh Rashid on 93-02-7332Fjjtgtedi GFR ()59 mL/MinCleveland Clinic Medina HospitalComment on above:GFR estimated reference range: According to KDOQI guidelines, <60 ml/min/1.73m2 is sufficient todiagnose a patient with chronic kidney disease.Pharmacy Creatinine Clearance (Chem44.22[facility] HospitalPlatelet mean volume Auto (Bld) [Entitic vol]Ordered By: Ashleigh Rashid on 77-40-4264Aqllmuas mean volume (Bld) [Entitic vol]9.7 fL6.3-10.7FBarnesville HospitalPlatelets Auto (Bld) [#/Vol]Ordered By: Ashleigh Rashid on 37-66-1539Ryfyimwam (Bld) [#/Vol]184 10*3/hX422-146SsprrdlzdCleveland Clinic Medina HospitalProtein [Mass/volume] in Serum or PlasmaOrdered By: Ashleigh Rashid on 78-19-8467Uuscavh [Mass/Vol]5.4 g/dL6.1-7.9[facility] HospitalRBC Auto (Bld) [#/Vol]Ordered By: Ashleigh Rashid on 44-75-4694RQU (Bld) [#/Vol]4.43 10*6/uL3.60-5.00[facility], Beachwooderum or plasma alanine aminotransferase measurement without P-5'-P (enzymatic activiOrdered By: Ashleigh Rashid on 07-42-8161XJE No additional P-5'-P [Catalytic activity/Vol]16 U/L10-60 [facility], Beachwooderum or plasma albumin/globulin mass ratio Ordered By: Ashleigh Rashid on 18-38-6614Lqyzgua/Globulin [Mass ratio]1.3 {ratio} [facility], Beachwooderum or plasma alkaline phosphatase measurement (enzymatic activity/volume)Ordered By: Ashleigh Rashid on 78-08-3318DQW [Catalytic activity/Vol]70 U/E06-12CwjtfyvwaSelect Medical [facility] Clinic [facility] Hospital, Beachwooderum or plasma anion gap determinationOrdered By: Ashleigh Rashid on 99-84-2799Pdtmz gap [Moles/Vol]12.2 mmol/L6.0-15.0[facility], Beachwooderum or plasma aspartate aminotransferase measurement (enzymatic activity/volume)Ordered By: Ashleigh Rashid on 07-26-6828TOV [Catalytic activity/Vol]15 U/P15-95IemxamciwSelect Medical [facility], Beachwooderum or plasma calcium measurement (mass/volume)Ordered By: Ashleigh Rashid on 25-88-4845Gwwedqz [Mass/Vol]8.9 mg/dL8.2-10.2FOhioHealth O'Bleness Hospitalerum or plasma chloride measurement (moles/volume)Ordered By: Ashleigh Rashid on 49-01-4752Hpnrtgwr [Moles/Vol]115 mmol/R28-603XxgaeumuoSelect Medical [facility], Beachwooderum or plasma glucose measurement (mass/volume)Ordered By: Ashleigh Rashid on 85-83-5811Ljaovni [Mass/Vol]93 mg/cZ88-877MdivnjsvmCleveland Clinic Medina Hospital Comment on above:ADA recommended reference rangeRandom Glucose Reference Range is dependent on time and content of last meal. Glucose of more than 200 mg/dL in a nonstressed, ambulatory subject supports the diagnosisof Diabetes Mellitus. Serum or plasma potassium measurement (moles/volume)Ordered By: Ashleigh Rashid on 23-60-6455Ftnwfohfq [Moles/Vol]3.1 mmol/L3.5-5.1FOhioHealth O'Bleness Hospitalerum or plasma sodium measurement (moles/volume)Ordered By: Ashleigh Rashid on 09-88-9467Sxzfzq [Moles/Vol]147 mmol/S184-609WkrjwdmpgCleveland Clinic Medina Hospital Serum or plasma total bilirubin measurement (mass/volume)Ordered By: Ashleigh Rashid on 21-58-2923Llpcbxfex [Mass/Vol]0.7 mg/dL0.3-1.2FOhioHealth O'Bleness Hospitalerum or plasma total carbon dioxide measurement (moles/volume)Ordered By: Ashleigh Rashid on 15-60-9991PE7 [Moles/Vol]22.9 mmol/L22.0-30.0[facility], Beachwooderum or plasma urea nitrogen measurement (mass/volume)Ordered By: Ashleigh Rashid on 26-30-0464Owsq nitrogen [Mass/Vol]28 mg/dL9-23[facility] HospitalAmphetamine Screen Ql (U)Ordered By: Rafiq Bahena on 11-21-2021 Amphetamines Ql (U)NegativeNegativeCleveland Clinic Medina HospitalAutomated erythrocytes count in urine sediment (number/area)Ordered By: Rafiq Bahena on 37-13-7845ZCQ Auto (Urine sed) [#/Area]0-1 [HPF]0-4FBarnesville HospitalAutomated leukocytes count in urine sediment (number/area)Ordered By: Rafiq Bahena on 45-39-7001FCE Auto (Urine sed) [#/Area]3-4 [HPF]0-4FBarnesville HospitalBarbiturates [Presence] in UrineOrdered By: Rafiq Bahena on 22-68-4884Xyqjywgtwmaa Ql (U)NegativeNegAultman HospitalBasophils Auto (Bld) [#/Vol]Ordered By: Rafiq Bahena on 11-21-2021 Basophils (Bld) [#/Vol]0.0 10*3/uL0.0-0.2FBarnesville Hospital Basophils/100 WBC Auto (Bld)Ordered By: Rafiq Bahena on 48-42-0510Fxcaipbaf/100 WBC (Bld)0.8 %.[facility] HospitalBenzodiazepines [Presence] in UrineOrdered By: Rafiq Bahena on 34-43-5158Whbiqjauettwiuh Ql (U)Negative NegativeCleveland Clinic Medina HospitalBilirubin Test strip Ql (U)Ordered By: Rafiq Bahena on 21-19-4981Iyxoorsmf Ql (U)NegativeNegativeCleveland Clinic Medina HospitalBlood hemoglobin measurement (mass/volume)Ordered By: Rafiq Bahena on 82-41-6231Uskakwmufv (Bld) [Mass/Vol]11.6 g/dL11.8-15.4FBarnesville HospitalBlood leukocytes automated count (number/volume)Ordered By: Rafiq Bahena on 27-33-5263XRB (Bld) [#/Vol]5.3 10*3/uL4.5-11.0[facility] HospitalBody fluid albumin measurement (mass/volume)Ordered By: Rafiq Bahena on 32-90-2358Wtihinz (Body fld) [Mass/Vol]3.4 g/dL3.2-5.5FBarnesville HospitalCOVID CepheidOrdered By: Ashleigh Rashid on 11-21-2021 SARS-CoV-2 (COVID-19) Ab IA QlNegativeNegativeC[facility] Clinic Medina Hospital Comment on above:This is a duplicate [employer] Xpert Xpress CoV-2/Flu/RSV Plus RNA by RT-PCR result to be used for statistical tracking purpose only.SARS-CoV-2 (COVID-19) RNA SIOBHAN+probe Ql (Unsp spec)[facility] HospitalCOVID-19 Positive/NegativeOrdered By: Rafiq Bahena on 94-54-9497TEUD-CoV-2 (COVID-19) N gene SIOBHAN+probe Ql (Resp)IndeterminateNegativeCleveland Clinic Medina Hospital Comment on above:Testing for SARS-CoV-2 by RT-PCRThis test was developed and its performance characteristics determined by [employer] ([employer]) and validated at the [facility]. This test has not been FDA [...] revoked sooner.COVID-19 SOFIAOrdered By: Rafiq Bahena on 74-02-3916TWKX-CoV+SARS-CoV-2 (COVID-19) Ag IA.rapid Ql (Resp)NegativeNegAultman HospitalComment on above:This is a duplicate [employer] SARS Antigen ([employer]ALK[employer]) result to be used for statistical tracking purpose only.Cannabinoids [Presence] in Urine by Screen methodOrdered By: Rafiq Bahena on 29-14-5782Elqplihnfdmx Screen Ql (U)NegativeNegativeCleveland Clinic Medina HospitalComment on above:These are unconfirmed results and should not be used for legal purposes. Drug Cut-Off Concentration: AMPH 1000 ng/mL RONALD 200 ng/mL CARMELA 200 ng/mL COCM 300 ng/mL OP 300 ng/mL PCP 25 ng/mL THC 20 ng/mLColor Auto (U)Ordered By: Rafiq Bahena on 03-21-1659Crovb (U)YellowMercy Health Springfield Regional Medical CenterCreatinine and Glomerular filtration rate.predicted panel (S/P/Bld)Ordered By: Rafiq Bahena on 89-72-9723Tlcfnziwgj [Mass/Vol]2.08 mg/dL0.44-1.03[facility] HospitalEosinophils Auto (Bld) [#/Vol]Ordered By: Rafiq Bahena on 06-26-5917Qkhqyivjdxw (Bld) [#/Vol]0.2 10*3/uL0.0-0.45[facility] HospitalEosinophils/100 WBC Auto (Bld) Ordered By: Rafiq Bahena on 17-31-0512Sxeipwvckxi/100 WBC (Bld)3.7 %.[facility] HospitalErythrocyte distribution width Auto (RBC) [Ratio]Ordered By: Rafiq Bahena on 85-78-3135Gdhdqfasova distribution width (RBC) [Ratio]20.4 %11.9-15.3FBarnesville HospitalEstimated glomerular filtration rate (GFR) non- AmericanOrdered By: Rafiq Bahena on 14-25-0113LFU/1.73 sq M.predicted among non-blacks MDRD (S/P/Bld) [Vol rate/Area]23 mL/MinCleveland Clinic Medina HospitalGlobulin Calc (S) [Mass/Vol]Ordered By: Rafiq Bahena on 75-24-9221Dhzipkmp (S) [Mass/Vol]2.1 g/dLCleveland Clinic Medina Hospital Glucose Glucometer (BldC) [Mass/Vol]Ordered By: Rafiq Bahena on 11-21-2021 Glucose [Mass/Vol]134 mg/dLCleveland Clinic Medina HospitalComment on above: Random Glucose Reference Range is dependent on time and content of last meal. Glucose of more than 200 mg/dL in a nonstressed, ambulatory subject supports the diagnosis of Diabetes Mellitus.Hematocrit Auto (Bld) [Volume fraction]Ordered By: Rafiq Bahena on 80-72-0571Mbpsybxxec (Bld) [Volume fraction]35.6 %34.0-46.4 [facility] HospitalKetones Auto test strip (U) [Mass/Vol]Ordered By: Rafiq Bahena on 78-70-9773Bxylnpy (U) [Mass/Vol]NegativeNegativeCleveland Clinic Medina HospitalLaboratory - Chemistry and Chemistry - challengeOrdered By: Rafiq Bahena on 43-03-1870ZP1 [Moles/Vol]23.8 mmol/L23.0-27.0[facility] HospitalHCO3 (Bld) [Moles/Vol]22.6 mmol/L23.0-29.0[facility] HospitalLaboratory - Drug toxicologyOrdered By: Rafiq Bahena on 22-10-6165Wtdylje Ql (U)NegativeNegativeCleveland Clinic Medina Hospital Laboratory - Hematology and Cell countsOrdered By: Rafiq Bahena on 11-21-2021 Nucleated RBC/100 WBC (Bld) [Ratio]0.0 %0-0.5FBarnesville Hospital Laboratory - UrinalysisOrdered By: Rafiq Bahena on 74-07-2247Yskvtfo casts LM Ql (Urine sed)0-8 [LPF]0-8[facility] HospitalLymphocytes Auto (Bld) [#/Vol]Ordered By: Rafiq Bahena on 10-20-3909Vlgpuzckfaz (Bld) [#/Vol]1.1 10*3/uL1.00-4.8[facility] HospitalLymphocytes/100 WBC Auto (Bld) Ordered By: Rafiq Bahena on 88-04-6057Rbvcoaoxclk/100 WBC (Bld)20.4 %.[facility] HospitalH Auto (RBC) [Entitic mass]Ordered By: Rafiq Bahena on 95-56-8780HDM (RBC) [Entitic mass]26.9 pg24.7-34.3FBarnesville HospitalMCHC Auto (RBC) [Mass/Vol]Ordered By: Rafiq Bahena on 69-14-6533VSDF (RBC) [Mass/Vol]32.6 g/dL32.0-35.0[facility] HospitalMCV Auto (RBC) [Entitic vol]Ordered By: Rafiq Bahena on 30-75-4045SUY (RBC) [Entitic vol]82.5 gO73-091PzqoakufhCleveland Clinic Medina HospitalMonocyte %Ordered By: Rafiq Bahena on 50-07-2782Zbsxaxkq %17 umol/X07-42SxwhwitquCleveland Clinic Medina Hospital Monocytes Auto (Bld) [#/Vol]Ordered By: Rafiq Bahena on 49-16-2486Uscaywnph (Bld) [#/Vol]0.5 10*3/uL0.0-0.8[facility] HospitalMonocytes/100 WBC Auto (Bld)Ordered By: Rafiq Bahena on 20-41-0724Jrobprgii/100 WBC (Bld)9.9 %.[facility] HospitalNeutrophils Auto (Bld) [#/Vol]Ordered By: Rafiq Bahena on 07-61-8092Uhthqhusljl (Bld) [#/Vol]3.5 10*3/uL1.8-7.7FBarnesville HospitalNeutrophils/100 WBC Auto (Bld)Ordered By: Rafiq Bahena on 73-49-3095Ghvgmyigarx/100 WBC (Bld)65.2 %.[facility] Nitrite Test strip Ql (U)Ordered By: Rafiq Bahena on 83-96-2093Wzdwfbl Ql (U) PositiveNegativeCleveland Clinic Medina HospitalNo Panel InformationOrdered By: Ashleigh Rashid on 60-57-5409Gzxlwug B12 Level> 7500 pg/cW364-568LzjbothdtCleveland Clinic Medina HospitalNo Panel InformationOrdered By: Rafiq Bahena on 11-21-2021 Arterial Blood Base Excess-1.9 mmol/L-3.0-3.0[facility] Arterial Blood Oxygen Content7.1 mmol/L6.6-9.7FBarnesville Hospital Arterial Blood Oxygen Irqrriwmke96.9 %95.0-100.0[facility] HospitalArterial Blood Partial Pressure CO237.8 mm[Hg]35.0-45.0[facility] HospitalArterial Blood Partial Pressure O282.7 mm[Hg]80.0-100.0[facility] HospitalArterial Blood pH7.407.35-7.45[facility] HospitalBlood Gas Critical ValueSee commentCleveland Clinic Medina Hospital Comment on above:Critical Value called on: 11/21/2021 at 06:17Blood Gas Sample SiteLeft radialCleveland Clinic Medina HospitalFiO221 %[facility] HospitalEstimated GFR ()28 mL/MinCleveland Clinic Medina HospitalComment on above:GFR estimated reference range: According to KDOQI guidelines, <60 ml/min/1.73m2 is sufficient todiagnose a patient with chronic kidney disease.Pharmacy Creatinine Clearance (Chem22.98[facility] HospitalBedside Glucose CommentGlu2: cleaned meterCleveland Clinic Medina HospitalPhencyclidine Screen Ql (U)Ordered By: Rafiq Bahena on 11-21-2021 Phencyclidine Ql (U)NegativeNegAultman HospitalPlatelet mean volume Auto (Bld) [Entitic vol]Ordered By: Rafiq Bahena on 11-21-2021 Platelet mean volume (Bld) [Entitic vol]9.6 fL6.3-10.7FBarnesville HospitalPlatelets Auto (Bld) [#/Vol]Ordered By: Rafiq Bahena on 11-21-2021 Platelets (Bld) [#/Vol]140 10*3/vH193-830GvcbbmwodCleveland Clinic Medina Hospital Protein Auto test strip (U) [Mass/Vol]Ordered By: Rafiq Bahena on 11-21-2021 Protein (U) [Mass/Vol]NegativeNegAultman HospitalProtein [Mass/volume] in Serum or PlasmaOrdered By: Rafiq Bahena on 14-04-1828Stjndhc [Mass/Vol]5.5 g/dL6.1-7.9[facility] HospitalRBC Auto (Bld) [#/Vol] Ordered By: Rafiq Bahena on 36-25-6391KMG (Bld) [#/Vol]4.31 10*6/uL3.60-5.00 [facility], Beachwooderum or plasma alanine aminotransferase measurement without P-5'-P (enzymatic activiOrdered By: Rafiq Bahena on 23-00-1091QPZ No additional P-5'-P [Catalytic activity/Vol]17 U/D13-60MnfganfzmSelect Medical [facility], Beachwooderum or plasma albumin/globulin mass ratioOrdered By: Rafiq Bahena on 47-86-5089Zscsitm/Globulin [Mass ratio]1.6 {ratio}[facility], Beachwooderum or plasma alkaline phosphatase measurement (enzymatic activity/volume)Ordered By: Rafiq Bahena on 43-70-3351RPZ [Catalytic activity/Vol]74 U/Y91-21WphjmkdvmSelect Medical [facility], Beachwooderum or plasma anion gap determinationOrdered By: Rafiq Bahena on 43-27-8400Tfiqh gap [Moles/Vol] 14.6 mmol/L6.0-15.0[facility], Beachwooderum or plasma aspartate aminotransferase measurement (enzymatic activity/volume)Ordered By: Rafiq Bahena on 59-64-0683JYC [Catalytic activity/Vol]19 U/Z92-47NjqzpacfcSelect Medical [facility], Beachwooderum or plasma calcium measurement (mass/volume)Ordered By: Rafiq Bahena on 67-01-5244Xfuecoz [Mass/Vol]9.1 mg/dL8.2-10.2FOhioHealth O'Bleness Hospitalerum or plasma chloride measurement (moles/volume)Ordered By: Rafiq Bahena on 84-90-5007Hmlzklrf [Moles/Vol]107 mmol/I03-450BeapfstjxSelect Medical [facility], Beachwooderum or plasma ethanol measurement (mass/volume)Ordered By: Rafiq Bahena on 36-30-7245Vmkcdrx [Mass/Vol]mg/dLCleveland Clinic Medina HospitalEthanol [Mass/Vol]TNPCleveland Clinic Medina HospitalComment on above: Test not performedSerum or plasma glucose measurement (mass/volume)Ordered By: Rafiq Bahena on 49-81-4659Ddllnys [Mass/Vol]124 mg/pJ73-874ZzsaorzbdCleveland Clinic Medina HospitalComment on above:ADA recommended reference rangeRandom Glucose Reference Range is dependent on time and content of last meal. Glucose of more than 200 mg/dL in a nonstressed, ambulatory subject supports the diagnosisof Diabetes Mellitus.Serum or plasma potassium measurement (moles/volume)Ordered By: Rafiq Bahena on 45-62-7690Ihipzctpf [Moles/Vol]3.1 mmol/L3.5-5.1FOhioHealth O'Bleness Hospitalerum or plasma sodium measurement (moles/volume)Ordered By: Rafiq Bahena on 88-72-1143Eokjot [Moles/Vol]142 mmol/N646-426IboogvqsuSelect Medical [facility], Beachwooderum or plasma total bilirubin measurement (mass/volume) Ordered By: Rafiq Bahena on 79-71-2676Bgzkwxawa [Mass/Vol]0.3 mg/dL0.3-1.2 [facility], Beachwooderum or plasma total carbon dioxide measurement (moles/volume)Ordered By: Rafiq Bahena on 42-71-8250BS2 [Moles/Vol] 23.5 mmol/L22.0-30.0[facility], Beachwooderum or plasma urea nitrogen measurement (mass/volume)Ordered By: Rafiq Bahena on 40-87-6495Txgn nitrogen [Mass/Vol]49 mg/dL9-23[facility], Beachwoodpecific gravity Auto test strip (U) [Rel density]Ordered By: Rafiq Bahena on 11-21-2021 Specific gravity (U) [Rel density]1.0101.001-1.030[facility], Beachwoodquamous epithelial cells detection in urine sediment by light microscopy Ordered By: Rafiq Bahena on 91-84-6601Vgryorkhxg cells.squamous LM Ql (Urine sed)1-2 [HPF]0-2FBarnesville HospitalTS DL <= 0.005 mIU/L QnOrdered By: Rafiq Bahena on 15-34-0506JXX Qn2.40 m[IU]/L0.45-5.33[facility] HospitalThyroxine (T4) free [Mass/volume] in Serum or PlasmaOrdered By: Rafiq Bahena on 76-38-5407Nwqz T4 [Mass/Vol]0.68 ng/dL0.61-1.12[facility] HospitalTroponin I.cardiac [Mass/volume] in Serum or Plasma by High sensitivity methodOrdered By: Rafiq Bahena on 14-84-2151Ftnbccqp I.cardiac High sensitivity method [Mass/Vol]6 pg/mL0-15[facility] Urine bacteria detection by automated methodOrdered By: Rafiq Bahena on 02-71-6605Bociksnu Auto Ql (U)2+None SeenCleveland Clinic Medina HospitalUrine clarity by refractometry automatedOrdered By: Rafiq Bahena on 14-63-7311Vzknozj Refractometry automated (U)ClearClearFBarnesville HospitalUrine cocaine detectionOrdered By: Rafiq Bahena on 32-54-5503Atahjjq Ql (U)Negative NegativeCleveland Clinic Medina HospitalUrine glucose measurement by automated test strip (mass/volume)Ordered By: Rafiq Bahena on 66-02-1169Lnylpny Auto test strip (U) [Mass/Vol]Normal mg/dLNormMartin Memorial HospitalUrine hemoglobin detection by automated test stripOrdered By: Rafiq Bahena on 86-35-0282Kkegwpulpc Auto test strip Ql (U)NegativeNegativeCleveland Clinic Medina HospitalUrine leukocyte esterase detection by automated test stripOrdered By: Rafiq Bahena on 43-91-3950Orsvfiqwf esterase Auto test strip Ql (U)1+ NegativeCleveland Clinic Medina HospitalUrobilinogen Auto test strip (U) [Mass/Vol]Ordered By: Rafiq Bahena on 25-77-5454Lkivnlobzbha (U) [Mass/Vol] Normal mg/dLNormMartin Memorial HospitalpH Auto test strip (U)Ordered By: Rafiq Bahena on 47-64-4367bC (U)5.5 [pH]5.0-9.0[facility] HospitalCBC AUTO DIFFon 71-55-6098KIPO #0.1 103/ulNormal0.0-0.1The [facility] HospitalComment on above:Performed By: #### CBC #### [facility] [address] [address] [address] Grzegorz WangBasophils/100 WBC (Bld)0.6 %Normal0.2-2.0[facility] Comment on above:Performed By: #### CBC #### [facility] [address] [place] [address] Dr. Grzegorz Tellez #0.4 103/ulNormal0.0-0.7The [facility] HospitalComment on above: Performed By: #### CBC #### [facility] [address] [place] [address] Dr. Grzegorz Reisosinophils/100 WBC (Bld)5.0 %Normal0.9-7.0[facility] Comment on above:Performed By: #### CBC #### [facility] [address] [place] [address] Dr. Grzegorz Reisrythrocyte distribution width (RBC) [Ratio]18.6 %Critically high 11.0-15.0[facility] HospitalComment on above:Performed By: #### CBC #### [facility] [address] [place] [address] Dr. Grzegorz WangHematocrit (Bld) [Volume fraction]35.7 %Critically low36.0-48.0 The [facility] HospitalComment on above:Performed By: #### CBC #### [facility] [address] [place] [address] Dr. Grzegorz WangHemoglobin (Bld) [Mass/Vol]11.2 g/dLCritically low12.0-16.0[facility] HospitalComment on above:Performed By: #### CBC #### [facility] [address] [place] [address] Dr. Grzegorz Barbosa #0.04 10e3/ulCritically high0.00-0.03[facility] Comment on above:Performed By: #### CBC #### [facility] [address] [place] [address] Dr. Grzegorz Barbosa %0.5 %Normal0.0-0.5The [facility] HospitalComment on above: Performed By: #### CBC #### [facility] [address] [address] [address] Grzegorz Soriano #1.9 103/ulNormal1.2-3.8The [facility] HospitalComment on above:Performed By: #### CBC #### [facility] [address] [place] [address] Dr. Grzegorz Wilkinshocytes/100 WBC (Bld)22.2 %Eunlvb49.5-60.0The [facility] HospitalComment on above:Performed By: #### CBC #### [facility] [address] [place] [address] Dr. Grzegorz Bowers DIFF REQNONormalThe German HospitalComment on above: Performed By: #### CBC #### [facility] [address] [place] [address] Dr. Grzegorz Delaney (RBC) [Entitic mass]26.4 pgCritically low26.7-34.0The [facility] HospitalComment on above:Performed By: #### CBC #### [facility] [address] [place] [address] Dr. Grzegorz Finley (RBC) [Mass/Vol]31.4 g/sWDmmzuc76.9-35.2[facility] on above:Performed By: #### CBC #### [facility] [address] [place] [address] Dr. Grzegorz Ricks (RBC) [Entitic vol]84.2 hDLedaws51.0-99.0[facility] on above:Performed By: #### CBC #### [facility] [address] [place] [address] Dr. Grzegorz Wild #0.8 103/ulNormal0.3-0.8[facility] on above:Performed By: #### CBC #### [facility] [address] [place] [address] Dr. Grzegorz Lemusocytes/100 WBC (Bld)10.0 %Normal1.7-12.0[facility] Comment on above:Performed By: #### CBC #### [facility] [address] [place] [address] Dr. Grzegorz Parada #5.2 103/ulNormal1.4-6.5The [facility] HospitalComment on above:Performed By: #### CBC #### [facility] [address] [place] [address] Dr. Grzegorz Omerutrophils/100 WBC (Bld)61.7 %Junwju68.0-75.0The [facility] HospitalComment on above:Performed By: #### CBC #### [facility] [address] [place] [address] Dr. Grzegorz Corteslet mean volume (Bld) [Entitic vol]11.8 fLNormal9.5-13.5The [facility] HospitalComment on above:Performed By: #### CBC #### [facility] [address] [place] [address] Dr. Grzegorz ArriolaT219 103/wjVpvmnv706-936Yvd German HospitalComment on above: Performed By: #### CBC #### [facility] [address] [place] [address] Dr. Grzegorz DobsonC4.24 106/ulNormal4.20-5.40The German HospitalComment on above:Performed By: #### CBC #### [facility] [address] [place] [address] Dr. Grezgorz CardonaBC8.4 103/ulNormal4.0-11.0The German HospitalComment on above: Performed By: #### CBC #### [facility] [address] [place] [address] Dr. Grzegorz Vaca LEUKOREDUCEDon [id number] and Rh group Nom (Bld)Cross Match Result Compatible Unit Blood Type O Pos Unit Number [id number] Status Information Transfused Product ID Red Blood Cells Product Code [id number] Cross Match Result Compatible Blood Bank Notes CALLED SARATH GLYNN RN ON MEDSUR 10/17/21 @ 0850 Unit Blood Type O Neg Unit Number [id number] Status Information Transfused Product ID Red Blood Cells Product Code [id number] Regional Medical CenterComment on above:Performed By: #### CBC #### [facility] [address] [place] [address] Dr. Grzegorz New and Rh group Nom (Bld)Cross Match Result Compatible Unit Blood Type O Neg Unit Number [id number] Status Information Transfused Product ID Red Blood Cells Product Code [id number] Cross Match Result Compatible Unit Blood Type O Neg Unit Number [id number] Status Information Transfused Product ID Red Blood Cells Product Code [id number] Memorial HospitalComment on above:Performed By: #### CBC #### [facility] [address] [place] [address] Dr. Grzegorz Hurley AUTO DIFFon [id number] #0.0 103/ulNormal0.0-0.1The German HospitalComment on above:Performed By: #### CBC #### [facility] [address] [place] [address] Dr. Grzegorz Griffinsophils/100 WBC (Bld)0.7 %Normal0.2-2.0[facility] Comment on above:Performed By: #### CBC #### [facility] [address] [place] [address] Dr. Grzegorz Tellez #0.2 103/ulNormal0.0-0.7The German HospitalComment on above: Performed By: #### CBC #### [facility] [address] [place] [address] Dr. Grzegorz Reisosinophils/100 WBC (Bld)2.9 %Normal0.9-7.0[facility] Comment on above:Performed By: #### CBC #### [facility] [address] [place] [address] Dr. Grzegorz Reisrythrocyte distribution width (RBC) [Ratio]17.8 %Critically high 11.0-15.0The German HospitalComment on above:Performed By: #### CBC #### [facility] [address] [address] [address] Grzegorz WangHematocrit (Bld) [Volume fraction]30.1 %Critically low36.0-48.0 The German HospitalComment on above:Performed By: #### CBC #### [facility] [address] [address] [address] Grzegorz WangHemoglobin (Bld) [Mass/Vol]9.6 g/dLCritically low12.0-16.0The [facility] HospitalComment on above:Performed By: #### CBC #### [facility] [address] [place] [address] Dr. Grzegorz WangIG #0.08 10e3/ulCritically high0.00-0.03[facility] Comment on above:Performed By: #### CBC #### [facility] [address] [place] [address] Dr. Grzegorz WangIG %1.3 %Critically high0.0-0.5The German HospitalComment on above:Performed By: #### CBC #### [facility] [address] [address] [address] Grzegorz Soriano #1.8 103/ulNormal1.2-3.8The German HospitalComment on above:Performed By: #### CBC #### [facility] [address] [place] [address] Dr. Grzegorz Finleymphocytes/100 WBC (Bld)29.4 %Zmkncb04.5-60.0The German HospitalComment on above:Performed By: #### CBC #### [facility] [address] [address] [address] Grzegorz AriasUAL DIFF REQNONormalThe German HospitalComment on above: Performed By: #### CBC #### [facility] [address] [place] [address] Dr. Grzegorz Delaney (RBC) [Entitic mass]25.9 pgCritically low26.7-34.0The [facility] HospitalComment on above:Performed By: #### CBC #### [facility] [address] [address] [address] Grzegorz FinleyHC (RBC) [Mass/Vol]31.9 g/fWYbgcyb00.9-35.2The German HospitalComment on above:Performed By: #### CBC #### [facility] [address] [place] [address] Dr. Grzegorz FinleyV (RBC) [Entitic vol]81.4 fERfonix52.0-99.0The German HospitalComment on above:Performed By: #### CBC #### [facility] [address] [place] [address] Dr. Grzegorz Wild #0.7 103/ulNormal0.3-0.8The German HospitalComment on above:Performed By: #### CBC #### [facility] [address] [place] [address] Dr. Grzegorz Lemusocytes/100 WBC (Bld)11.9 %Normal1.7-12.0[facility] Comment on above:Performed By: #### CBC #### [facility] [address] [place] [address] Dr. Grzegorz Parada #3.3 103/ulNormal1.4-6.5The German HospitalComment on above:Performed By: #### CBC #### [facility] [address] [place] [address] Dr. Grzegorz Omerutrophils/100 WBC (Bld)53.8 %Gxxzlk54.0-75.0The German HospitalComment on above:Performed By: #### CBC #### [facility] [address] [place] [address] Dr. Grzegorz Corteslet mean volume (Bld) [Entitic vol]10.5 fLNormal9.5-13.5The German HospitalComment on above:Performed By: #### CBC #### [facility] [address] [place] [address] Dr. Grzegorz WangPLT206 103/epRnxiil980-370Roj German HospitalComment on above: Performed By: #### CBC #### [facility] [address] [address] [address] Grzegorz WangRBC3.70 106/ulCritically low4.20-5.40The German HospitalComment on above:Performed By: #### CBC #### [facility] [address] [address] [address] Grzegorz WangWBC6.1 103/ulNormal4.0-11.0The German HospitalComment on above: Performed By: #### CBC #### [facility] [address] [place] [address] Dr. Grzegorz Canela CHEM 8 (BAS METB)on [id number] gap [Moles/Vol]9.6 mmol/LNormalThe German HospitalComment on above:Performed By: #### CBC #### [facility] [address] [place] [address] Dr. Grzegorz WangCalcium [Mass/Vol]8.5 mg/dLNormal8.5-10.1[facility] Comment on above:Performed By: #### CBC #### [facility] [address] [place] [address] Dr. Grzegorz WangChloride [Moles/Vol]113 mmol/LCritically qyzq76-039Wjt German HospitalComment on above:Performed By: #### CBC #### [facility] [address] [place] [address] Dr. Grzegorz WangCO2 [Moles/Vol]26.6 mmol/IFavmhg00.0-32.0[facility] Comment on above:Performed By: #### CBC #### [facility] [address] [place] [address] Dr. Grzegorz WangCreatinine [Mass/Vol]0.94 mg/dLNormal0.55-1.02The German HospitalComment on above:Performed By: #### CBC #### [facility] [address] [place] [address] Dr. Yilan ChangEGFR-AF TOGOLESE>60Normal>=60The German HospitalComment on above:Performed By: #### CBC #### [facility] [address] [place] [address] Dr. Lantigua ChangEGFR-NON AF WYVQAEPN73 mL/min/1.09m3Pykfmnxmtr low>=60The German HospitalComment on above:Performed By: #### CBC #### [facility] [address] [place] [address] Dr. Grzegorz WangGlucose [Mass/Vol]97 mg/uFGxksch30-840I[facility] Comment on above:Performed By: #### CBC #### [facility] [address] [place] [address] Dr. Grzegorz WangPotassium [Moles/Vol]3.2 mmol/LCritically low3.5-5.1The German HospitalComment on above:Performed By: #### CBC #### [facility] [address] [place] [address] Dr. Grzegorz Grantdium [Moles/Vol]146 mmol/LCritically rvai076-429Kom German HospitalComment on above:Performed By: #### CBC #### [facility] [address] [place] [address] Dr. Grzegorz WangUrea nitrogen [Mass/Vol]38.0 mg/dLCritically high7.0-18.0The German HospitalComment on above:Performed By: #### CBC #### [facility] [address] [place] [address] Dr. Grzegorz Padron nitrogen/Creatinine [Mass ratio]40.4 mg/mgNormalThe German HospitalComment on above:Performed By: #### CBC #### [facility] [address] [place] [address] Dr. Grzegorz BaezC AUTO DIFFon [id number] #0.1 103/ulNormal0.0-0.1The German HospitalComment on above:Performed By: #### CBC #### [facility] [address] [place] [address] Dr. Yilan ChangBasophils/100 WBC (Bld)0.9 %Normal0.2-2.0[facility] Comment on above:Performed By: #### CBC #### [facility] [address] [place] [address] Dr. Grzegorz Tellez #0.2 103/ulNormal0.0-0.7ThOhioHealth Arthur G.H. Bing, MD, Cancer CenterComment on above: Performed By: #### CBC #### [facility] [address] [place] [address] Dr. Grzegorz Reisosinophils/100 WBC (Bld)3.1 %Normal0.9-7.0[facility] Comment on above:Performed By: #### CBC #### [facility] [address] [place] [address] Dr. Grzegorz Reisrythrocyte distribution width (RBC) [Ratio]17.6 %Critically high 11.0-15.0[facility] HospitalComment on above:Performed By: #### CBC #### [facility] [address] [place] [address] Dr. Grzegorz WangHematocrit (Bld) [Volume fraction]35.7 %Critically low36.0-48.0 The German HospitalComment on above:Performed By: #### CBC #### [facility] [address] [place] [address] Dr. Grzegorz WangHemoglobin (Bld) [Mass/Vol]11.5 g/dLCritically low12.0-16.0[facility] HospitalComment on above:Result Comment: rcvd. bloodPerformed By: #### CBC #### [facility] [address] [place] [address] Dr. Grzegorz Barbosa #0.18 10e3/ulCritically high0.00-0.03[facility] Comment on above:Performed By: #### CBC #### [facility] [address] [place] [address] Dr. Grzegorz Barbosa %2.6 %Critically high0.0-0.5The German HospitalComment on above:Performed By: #### CBC #### [facility] [address] [address] [address] Grzegorz Soriano #1.5 103/ulNormal1.2-3.8The German HospitalComment on above:Performed By: #### CBC #### [facility] [address] [address] [address] Grzegorz Finleymphocytes/100 WBC (Bld)21.4 %Mziqoc86.5-60.0The German HospitalComment on above:Performed By: #### CBC #### [facility] [address] [address] [address] Grzegorz AriasUAL DIFF REQNONormalThe German HospitalComment on above: Performed By: #### CBC #### [facility] [address] [place] [address] Dr. Grzegorz Finley (RBC) [Entitic mass]26.0 pgCritically low26.7-34.0The German HospitalComment on above:Performed By: #### CBC #### [facility] [address] [place] [address] Dr. Grzegorz Finley (RBC) [Mass/Vol]32.2 g/qGUvlqbn61.9-35.2The German HospitalComment on above:Performed By: #### CBC #### [facility] [address] [place] [address] Dr. Grzegorz Finley (RBC) [Entitic vol]80.6 fLCritically low81.0-99.0The German HospitalComment on above:Performed By: #### CBC #### [facility] [address] [place] [address] Dr. Grzegorz Wild #0.7 103/ulNormal0.3-0.8The German HospitalComment on above:Performed By: #### CBC #### [facility] [address] [place] [address] Dr. Grzegorz Lemusocytes/100 WBC (Bld)10.8 %Normal1.7-12.0[facility] Comment on above:Performed By: #### CBC #### [facility] [address] [address] [address] Grzegorz Parada #4.2 103/ulNormal1.4-6.5The German HospitalComment on above:Performed By: #### CBC #### [facility] [address] [address] [address] Grzegorz Omerutrophils/100 WBC (Bld)61.2 %Ofikqu57.0-75.0The German HospitalComment on above:Performed By: #### CBC #### [facility] [address] [place] [address] Dr. Grzegorz Corteslet mean volume (Bld) [Entitic vol]9.9 fLNormal9.5-13.5The German HospitalComment on above:Performed By: #### CBC #### [facility] [address] [place] [address] Dr. Grzegorz WangPLT228 103/dtRsakuq507-409Vsz German HospitalComment on above: Performed By: #### CBC #### [facility] [address] [place] [address] Dr. Grzegorz WangRBC4.43 106/ulNormal4.20-5.40The [facility] Hospitalment on above:Performed By: #### CBC #### [facility] [address] [place] [address] Dr. Grzegorz WangWBC6.9 103/ulNormal4.0-11.0The German HospitalComment on above: Performed By: #### CBC #### [facility] [address] [place] [address] Dr. Grzegorz WangBASO #0.0 103/ulNormal0.0-0.1The German HospitalComment on above:Performed By: #### CBC #### [facility] [address] [place] [address] Dr. Grzegorz WangBasophils/100 WBC (Bld)0.8 %Normal0.2-2.0[facility] Comment on above:Performed By: #### CBC #### [facility] [address] [place] [address] Dr. Grzegorz Tellez #0.1 103/ulNormal0.0-0.7The German HospitalComment on above: Performed By: #### CBC #### [facility] [address] [place] [address] Dr. Grzegorz Reisosinophils/100 WBC (Bld)2.4 %Normal0.9-7.0[facility] Comment on above:Performed By: #### CBC #### [facility] [address] [place] [address] Dr. Grzegorz Reisrythrocyte distribution width (RBC) [Ratio]16.8 %Critically high 11.0-15.0The German HospitalComment on above:Performed By: #### CBC #### [facility] [address] [place] [address] Dr. Grzegorz WangHematocrit (Bld) [Volume fraction]23.2 %Critically low36.0-48.0 The German HospitalComment on above:Performed By: #### CBC #### [facility] [address] [place] [address] Dr. Grzegorz WangHemoglobin (Bld) [Mass/Vol]7.4 g/dLCritically low12.0-16.0[facility] HospitalComment on above:Performed By: #### CBC #### [facility] [address] [place] [address] Dr. Grzegorz Barbosa #0.05 10e3/ulCritically high0.00-0.03[facility] Comment on above:Performed By: #### CBC #### [facility] [address] [place] [address] Dr. Grzegorz Barbosa %1.0 %Critically high0.0-0.5The [facility] HospitalComveterans affairs medical center on above:Performed By: #### CBC #### [facility] [address] [place] [address] Dr. Grzegorz Soriano #1.4 103/ulNormal1.2-3.8The [facility] HospitalComment on above:Performed By: #### CBC #### [facility] [address] [address] [address] Grzegorz Finleymphocytes/100 WBC (Bld)27.8 %Syekjt56.5-60.0The [facility] HospitalComment on above:Performed By: #### CBC #### [facility] [address] [place] [address] Dr. Grzegorz Bowers DIFF REQNONormalThe [facility] HospitalComment on above: Performed By: #### CBC #### [facility] [address] [place] [address] Dr. Grzegorz Finley (RBC) [Entitic mass]25.6 pgCritically low26.7-34.0The German HospitalComment on above:Performed By: #### CBC #### [facility] [address] [place] [address] Dr. Grzegorz Finley (RBC) [Mass/Vol]31.9 g/gYXhspfz97.9-35.2The [facility] HospitalComment on above:Performed By: #### CBC #### [facility] [address] [place] [address] Dr. Grzegorz Ricks (RBC) [Entitic vol]80.3 fLCritically low81.0-99.0The [facility] HospitalComment on above:Performed By: #### CBC #### [facility] [address] [place] [address] Dr. Grzegorz Wild #0.6 103/ulNormal0.3-0.8The [facility] HospitalComment on above:Performed By: #### CBC #### [facility] [address] [place] [address] Dr. Grzegorz Lemusocytes/100 WBC (Bld)11.6 %Normal1.7-12.0[facility] Comment on above:Performed By: #### CBC #### [facility] [address] [place] [address] Dr. Grzegorz Parada #2.8 103/ulNormal1.4-6.5The [facility] HospitalComment on above:Performed By: #### CBC #### [facility] [address] [place] [address] Dr. Grzegorz WangNeutrophils/100 WBC (Bld)56.4 %Mkzgcx74.0-75.0The [facility] HospitalComment on above:Performed By: #### CBC #### [facility] [address] [place] [address] Dr. Grzegorz WangPlatelet mean volume (Bld) [Entitic vol]10.0 fLNormal9.5-13.5The [facility] HospitalComment on above:Performed By: #### CBC #### [facility] [address] [place] [address] Dr. Grzegorz WangPLT193 103/lsPzrxav629-047Clo German HospitalComment on above: Performed By: #### CBC #### [facility] [address] [place] [address] Dr. Grzegorz WangRBC2.89 106/ulCritically low4.20-5.40The [facility] HospitalComment on above:Performed By: #### CBC #### [facility] [address] [place] [address] Dr. Grzegorz WangWBC4.9 103/ulNormal4.0-11.0The [facility] HospitalComveterans affairs medical center on above: Performed By: #### CBC #### [facility] [address] [place] [address] Dr. Grzegorz WangPROF CHEM 8 (BAS METB)on [id number] gap [Moles/Vol]11.4 mmol/LNormalThe German HospitalComment on above:Performed By: #### PALOMA, LIPA #### [facility] [address] [place] [address] Dr. Grzegorz WangCalcium [Mass/Vol]8.3 mg/dLCritically low8.5-10.1The German HospitalComment on above:Performed By: #### PALOMA, LIPA #### [facility] [address] [place] [address] Dr. Grzegorz WangChloride [Moles/Vol]116 mmol/LCritically riqt79-333XbeMercy Memorial HospitalComment on above:Performed By: #### PALOMA, LIPA #### [facility] [address] [address] [address] Grzegorz WangCO2 [Moles/Vol]21.1 mmol/GRbjnvt00.0-32.0[facility] Comment on above:Performed By: #### PALOMA, LIPA #### [facility] [address] [place] [address] Dr. Grzegorz WangCreatinine [Mass/Vol]1.07 mg/dLCritically high0.55-1.02The [facility] HospitalComment on above:Performed By: #### PALOMA, LIPA #### [facility] [address] [place] [address] Dr. Lantigua ChangEGFR-AF TOGOLESE>60Normal>=60The German HospitalComment on above:Performed By: #### PALOMA, LIPA #### [facility] [address] [place] [address] Dr. Grzegorz ReisGFR-NON AF UCMMFTTM74 mL/min/1.50s7Lajupfgtrw low>=60The [facility] HospitalComment on above:Performed By: #### PALOMA, LIPA #### [facility] [address] [place] [address] Dr. Grzegorz WangGlucose [Mass/Vol]90 mg/xEYryltc42-428HzaMercy [facility] Hospital Comment on above:Performed By: #### PALOMA, LIPA #### [facility] [address] [place] [address] Dr. Grzegorz WangPotassium [Moles/Vol]3.5 mmol/LNormal3.5-5.1[facility] Comment on above:Performed By: #### PALOMA, LIPA #### [facility] [address] [place] [address] Dr. Grzegorz WangSodium [Moles/Vol]145 mmol/UBqegfp072-751Zld [facility] Comment on above:Performed By: #### PALOMA, LIPA #### [facility] [address] [place] [address] Dr. Grzegorz Padron nitrogen [Mass/Vol]59.0 mg/dLCritically high7.0-18.0The [facility] HospitalComment on above:Performed By: #### PALOMA, LIPA #### [facility] [address] [place] [address] Dr. Grzegorz Padron nitrogen/Creatinine [Mass ratio]55.1 mg/mgNormalThe German HospitalComment on above:Performed By: #### PALOMA, LIPA #### [facility] [address] [place] [address] Dr. Grzegorz WangAMYLASEon [id number] [Catalytic activity/Vol]41 U/LNormal 25-115The [facility] HospitalComment on above:Performed By: #### PALOMA, LIPA #### [facility] [address] [place] [address] Dr. Grzegorz Hurley AUTO DIFFon [id number] #0.1 103/ulNormal0.0-0.1The [facility] HospitalComment on above:Performed By: #### PALOMA, LIPA #### [facility] [address] [place] [address] Dr. Grzegorz Griffinsophils/100 WBC (Bld)0.7 %Normal0.2-2.0[facility] Comment on above:Performed By: #### PALOMA, LIPA #### [facility] [address] [place] [address] Dr. Grzegorz Tellez #0.2 103/ulNormal0.0-0.7The [facility] HospitalComveterans affairs medical center on above: Performed By: #### PALOMA, LIPA #### [facility] [address] [place] [address] Dr. Grzegorz Reisosinophils/100 WBC (Bld)2.4 %Normal0.9-7.0[facility] Comment on above:Performed By: #### PALOMA, LIPA #### [facility] [address] [place] [address] Dr. Grzegorz Reisrythrocyte distribution width (RBC) [Ratio]17.1 %Critically high 11.0-15.0The [facility] HospitalComment on above:Performed By: #### PALOMA, LIPA #### [facility] [address] [place] [address] Dr. Grzegorz WangHematocrit (Bld) [Volume fraction]26.0 %Critically low36.0-48.0 The German HospitalComment on above:Performed By: #### PALOMA, LIPA #### [facility] [address] [place] [address] Dr. Grzegorz WangHemoglobin (Bld) [Mass/Vol]8.4 g/dLCritically low12.0-16.0The [facility] HospitalComment on above:Performed By: #### PALOMA, LIPA #### [facility] [address] [place] [address] Dr. Grzegorz Barbosa #0.03 10e3/ulNormal0.00-0.03The [facility] HospitalComment on above:Performed By: #### PALOMA, LIPA #### [facility] [address] [place] [address] Dr. Grzegorz Barbosa %0.4 %Normal0.0-0.5The [facility] HospitalComment on above: Performed By: #### PALOMA, LIPA #### [facility] [address] [place] [address] Dr. Grzegorz WilkinsH #1.9 103/ulNormal1.2-3.8The [facility] HospitalComment on above:Performed By: #### PALOMA, LIPA #### [facility] [address] [place] [address] Dr. Grzegorz Finleymphocytes/100 WBC (Bld)27.3 %Frgint49.5-60.0The [facility] HospitalComment on above:Performed By: #### PALOMA, LIPA #### [facility] [address] [place] [address] Dr. Grzegorz AriasUAL DIFF REQNONormalThe [facility] HospitalComment on above: Performed By: #### PALOMA, LIPA #### [facility] [address] [place] [address] Dr. Grzegorz Finley (RBC) [Entitic mass]26.0 pgCritically low26.7-34.0The [facility] HospitalComment on above:Performed By: #### PALOMA, LIPA #### [facility] [address] [place] [address] Dr. Grzegorz Filney (RBC) [Mass/Vol]32.3 g/uQJhywrg11.9-35.2The [facility] HospitalComment on above:Performed By: #### PALOMA, LIPA #### [facility] [address] [place] [address] Dr. Grzegorz Finley (RBC) [Entitic vol]80.5 fLCritically low81.0-99.0The [facility] HospitalComment on above:Performed By: #### PALOMA, LIPA #### [facility] [address] [place] [address] Dr. Grzegorz Wild #0.7 103/ulNormal0.3-0.8The [facility] HospitalComment on above:Performed By: #### PALOMA, LIPA #### [facility] [address] [place] [address] Dr. Grzegorz Lemusocytes/100 WBC (Bld)10.5 %Normal1.7-12.0[facility] Comment on above:Performed By: #### PALOMA, LIPA #### [facility] [address] [place] [address] Dr. Grzegorz Parada #4.1 103/ulNormal1.4-6.5The [facility] HospitalComment on above:Performed By: #### PALOMA, LIPA #### [facility] [address] [place] [address] Dr. Grzegorz Reisophils/100 WBC (Bld)58.7 %Bymgtc43.0-75.0The [facility] HospitalComment on above:Performed By: #### PALOMA, LIPA #### [facility] [address] [place] [address] Dr. Grzegorz Corteslet mean volume (Bld) [Entitic vol]10.4 fLNormal9.5-13.5The [facility] HospitalComment on above:Performed By: #### PALOMA LIPA #### [facility] [address] [address] [address] Grzegorz WangPLT217 103/niKwkbgn853-157Caw [facility] HospitalComment on above: Performed By: #### PALOMA LIPA #### [facility] [address] [address] [address] Grzegorz WangRBC3.23 106/ulCritically low4.20-5.40The [facility] HospitalComment on above:Performed By: #### PALOMA LIPA #### [facility] [address] [place] [address] Dr. Grzegorz WangWBC7.1 103/ulNormal4.0-11.0The [facility] HospitalComment on above: Performed By: #### PALOMA LIPA #### [facility] [address] [place] [address] Dr. Grzegorz WangBASO #0.0 103/ulNormal0.0-0.1The [facility] HospitalComment on above:Performed By: #### CBC #### [facility] [address] [place] [address] Dr. Grzegorz Griffinsophils/100 WBC (Bld)0.5 %Normal0.2-2.0[facility] Comment on above:Performed By: #### CBC #### [facility] [address] [place] [address] Dr. Grzegorz Tellez #0.1 103/ulNormal0.0-0.7The German HospitalComment on above: Performed By: #### CBC #### [facility] [address] [address] [address] Grzegorz Reisosinophils/100 WBC (Bld)0.8 %Critically low0.9-7.0The German HospitalComment on above:Performed By: #### CBC #### [facility] [address] [place] [address] Dr. Grzegorz Reisrythrocyte distribution width (RBC) [Ratio]16.8 %Critically high 11.0-15.0The German HospitalComment on above:Performed By: #### CBC #### [facility] [address] [place] [address] Dr. Grzegorz WangHematocrit (Bld) [Volume fraction]19.5 %Critically low36.0-48.0 The German HospitalComment on above:Performed By: #### CBC #### [facility] [address] [place] [address] Dr. Grzegorz WangHemoglobin (Bld) [Mass/Vol]6.0 g/dLCritically low12.0-16.0The German HospitalComment on above:Result Comment: repeatedPerformed By: #### CBC #### [facility] [address] [place] [address] Dr. Grzegorz Barbosa #0.05 10e3/ulCritically high0.00-0.03[facility] Comment on above:Performed By: #### CBC #### [facility] [address] [place] [address] Dr. Grzegorz Barbosa %0.6 %Critically high0.0-0.5The [facility] HospitalComv[facility] affairs [facility] on above:Performed By: #### CBC #### [facility] [address] [place] [address] Dr. Grzegorz Soriano #1.8 103/ulNormal1.2-3.8The German HospitalComment on above:Performed By: #### CBC #### [facility] [address] [place] [address] Dr. Grzegorz Wilkinshocytes/100 WBC (Bld)21.6 %Vrckfy43.5-60.0The German HospitalComment on above:Performed By: #### CBC #### [facility] [address] [place] [address] Dr. Grzegorz AriasUAL DIFF REQNONormalThe German HospitalComment on above: Performed By: #### CBC #### [facility] [address] [address] [address] Grzegorz Finley (RBC) [Entitic mass]23.4 pgCritically low26.7-34.0The German HospitalComment on above:Performed By: #### CBC #### [facility] [address] [place] [address] Dr. Grzegorz Finley (RBC) [Mass/Vol]30.6 g/oKVofqvc69.9-35.2The [facility] HospitalComment on above:Performed By: #### CBC #### [facility] [address] [place] [address] Dr. Grzegorz Finley (RBC) [Entitic vol]76.6 fLCritically low81.0-99.0The German HospitalComment on above:Performed By: #### CBC #### [facility] [address] [place] [address] Dr. Grzegorz Wild #0.6 103/ulNormal0.3-0.8The German HospitalComment on above:Performed By: #### CBC #### [facility] [address] [place] [address] Dr. Grzegorz Lemusocytes/100 WBC (Bld)7.3 %Normal1.7-12.0[facility] Comment on above:Performed By: #### CBC #### [facility] [address] [place] [address] Dr. Grzegorz OmerUT #5.9 103/ulNormal1.4-6.5The [facility] HospitalComment on above:Performed By: #### CBC #### [facility] [address] [place] [address] Dr. Grzegorz Omerutrophils/100 WBC (Bld)69.2 %Ugqhmi61.0-75.0The German HospitalComment on above:Performed By: #### CBC #### [facility] [address] [place] [address] Dr. Grzegorz Kwan mean volume (Bld) [Entitic vol]10.5 fLNormal9.5-13.5The [facility] HospitalComment on above:Performed By: #### CBC #### [facility] [address] [address] [address] Grzegorz WangPLT288 103/rbAstvjo386-058Gdm German HospitalComment on above: Performed By: #### CBC #### [facility] [address] [address] [address] Grzegorz WangRBC2.52 106/ulCritically low4.20-5.40The [facility] HospitalComment on above:Performed By: #### CBC #### [facility] [address] [address] [address] Grzegorz WangWBC8.5 103/ulNormal4.0-11.0The German HospitalComment on above: Performed By: #### CBC #### [facility] [address] [address] [address] Grzegorz WangCT ABD/PELVIS WO CONon [id number] ABD/PELVIS WO CONEXAMINATION: CT ABD/PELVIS WO CON, [...] Electronically authenticated by: LYNN OLSON Date: 2021-10-16 13:53NormMartin Memorial HospitalCovid-19 PCR (CVDTBH)on [id number]-CoV-2 (COVID-19) RNA SIOBHAN+probe Ql (Unsp spec)Not detectedNormalNOT DETECTEDMercy Memorial Hospital Comment on above:Result Comment: When [...] for this test is supported by the [employer] Installer of Health and Human Service's declaration that [...] longer be used).Performed By: #### ERUR #### [facility] [address] [place] [address] Dr. Grzegorz Ribeiro URINE PROFILEon [id number] Ql (U)NegativeNormal NEGATIVEMercy Memorial HospitalComment on above:Performed By: #### LUCHO DOWA #### [facility] [address] [place] [address] Dr. Grzegorz Goldman (U)CLEARNormalCLEARMercy Memorial HospitalComveterans affairs medical center on above: Performed By: #### PALOMA LIPA #### [facility] [address] [place] [address] Dr. Grzegorz Delvalle (U)LT. YELLOWNormalYELLOWMercy Memorial HospitalComment on above:Performed By: #### PALOMA LIPA #### [facility] [address] [place] [address] Dr. Grzegorz Dawson micrscopic examination will be performed if indicated. NormalMercy Memorial HospitalComment on above:Performed By: #### PALOMA, LIPA #### [facility] [address] [place] [address] Dr. Grzegorz WangGlucose Ql (U)NegativeNormalNEGATIVEThe [place] HospitalComment on above:Performed By: #### PALOMA, LIPA #### [facility] [address] [address] [address] Grzegorz WangHemoglobin Ql (U)SMALLAbnormalNEGATIVEMercy Memorial Hospital Comment on above:Performed By: #### PALOMA, LIPA #### [facility] [address] [address] [address] Grzegorz WangKetones Ql (U)NegativeNormalNEGATIVEMercy Memorial HospitalComment on above:Performed By: #### PALOMA, LIPA #### [facility] [address] [address] [address] Grzegorz WangLEUKOCYTESTRACEAbnormalNEGATIVEMercy Memorial HospitalComment on above:Performed By: #### PALOMA, LIPA #### [facility] [address] [place] [address] Dr. Grzegorz WangNitrite Ql (U)NegativeNormalNEGATIVEMercy Memorial HospitalComment on above:Performed By: #### PALOMA, LIPA #### [facility] [address] [place] [address] Dr. Grzegorz WangpH (U)5.5 [pH]Normal5-9Mercy Memorial HospitalComment on above: Performed By: #### PALOMA, LIPA #### [facility] [address] [place] [address] Dr. Grzegorz WangSPEC GRAVITY1.238Hncpul1.005-<=1.025The [facility] HospitalComment on above:Performed By: #### PALOMA, LIPA #### [facility] [address] [place] [address] Dr. Grzegorz Jones PROTEINNegativeNormalNEGATIVE/ TRACEMercy Memorial Hospital Comment on above:Performed By: #### PALOMA, LIPA #### [facility] [address] [place] [address] Dr. Grzegorz Durham MICRO INDINDICATEDNoalThOhioHealth Arthur G.H. Bing, MD, Cancer CenterComment on above: Performed By: #### PALOMA, LIPA #### [facility] [address] [address] [address] Grzegorz Hsubilevangelina Qn (U)0.2 {Lidya'U}/dLNormal0.2 - 1.0The [facility] Hospitalment on above:Performed By: #### PALOMA, LIPA #### [facility] [address] [place] [address] Dr. Grzegorz WangLIPASEon [id number] [Catalytic activity/Vol]77.0 U/LNormal 73.0-393.0The [facility] HospitalComment on above:Performed By: #### PALOMA, LIPA #### [facility] [address] [place] [address] Dr. Grzegorz Mayfield BLD IMMUNO SCREENon [id number] BLOODPositiveAbnormal NEGATIVEThe [facility] HospitalComveterans affairs medical center on above:Performed By: #### PALOMA LIPA #### [facility] [address] [place] [address] Dr. Grzegorz WangPROF 14(COMP METB)on 16-67-8347Iivfftq [Mass/Vol]3.4 g/dLNormal 3.4-5.0The [facility] Hospitalment on above:Performed By: #### CBC #### [facility] [address] [place] [address] Dr. Grzegorz WangAlbumin/Globulin [Mass ratio]1.2 {ratio}NormalThe [facility] HospitalComveterans affairs medical center on above:Performed By: #### CBC #### [facility] [address] [place] [address] Dr. Grzegorz Oleary [Catalytic activity/Vol]77 U/TOzdinw42-301Zbx [facility] HospitalComveter[facility] affairs medical center on above:Performed By: #### CBC #### [facility] [address] [place] [address] Dr. Grzegorz Cummings [Catalytic activity/Vol]18 U/XHcwyuv12-87Ugu [facility] HospitalComveter[facility] affairs medical center on above:Performed By: #### CBC #### [facility] [address] [place] [address] Dr. Grzegorz Peters gap [Moles/Vol]15.3 mmol/LNormalThe [facility] Comment on above:Performed By: #### CBC #### [facility] [address] [address] [address] Grzegorz WangAST [Catalytic activity/Vol]17 U/YAqlgvt72-56Drz [facility] HospitalComment on above:Performed By: #### CBC #### [facility] [address] [address] [address] Grzegorz WangBilirubin [Mass/Vol]0.4 mg/dLNormal0.2-1.0[facility] Comment on above:Performed By: #### CBC #### [facility] [address] [address] [address] Grzegorz WangCalcium [Mass/Vol]8.5 mg/dLNormal8.5-10.1[facility] Comment on above:Performed By: #### CBC #### [facility] [address] [address] [address] Grzegorz WangChloride [Moles/Vol]104 mmol/VRdauiy16-004Lvv [facility] Comment on above:Performed By: #### CBC #### [facility] [address] [address] [address] Grzegorz WangCO2 [Moles/Vol]21.2 mmol/PJicycd09.0-32.0[facility] Comment on above:Performed By: #### CBC #### [facility] [address] [address] [address] Grzegorz WangCreatinine [Mass/Vol]1.68 mg/dLCritically high0.55-1.02The [facility] HospitalComment on above:Performed By: #### CBC #### [facility] [address] [address] [address] Grzegorz ReisGFR-AF KXXJMOKK36 mL/min/1.98z3Brpmdbowfc low>=60The [facility] HospitalComment on above:Performed By: #### CBC #### [facility] [address] [address] [address] Grzegorz ReisGFR-NON AF FDVSKLZI83 mL/min/1.97l7Tdbblxkjyp low>=60The [facility] Hospitalment on above:Performed By: #### CBC #### [facility] [address] [address] [address] Grzegorz WangGlobulin (S) [Mass/Vol]2.8 g/dLNoOhioHealth Grant Medical Center on above:Performed By: #### CBC #### [facility] [address] [address] [address] Grzegorz WangGlucose [Mass/Vol]101 mg/sWFqpnmd47-975AmiMercy Memorial Hospital Comment on above:Performed By: #### CBC #### [facility] [address] [address] [address] Grzegorz WangPotassium [Moles/Vol]3.5 mmol/LNormal3.5-5.1[facility] Comment on above:Performed By: #### CBC #### [facility] [address] [address] [address] Grzegorz WangProtein [Mass/Vol]6.2 g/dLCritically low6.4-8.2[facility] on above:Performed By: #### CBC #### [facility] [address] [address] [address] Grzegorz WangSodium [Moles/Vol]137 mmol/BCccrkt825-650IrhMercy Memorial Hospital Comment on above:Performed By: #### CBC #### [facility] [address] [address] [address] Grzegorz WangUrea nitrogen [Mass/Vol]83.0 mg/dLCritically high7.0-18.0[facility] on above:Result Comment: repeatedPerformed By: #### CBC #### [facility] [address] [address] [address] Grzegorz WangUrea nitrogen/Creatinine [Mass ratio]49.4 mg/mgNoFirelands Regional Medical CenterComveterans affairs medical center on above:Performed By: #### CBC #### [facility] [address] [address] [address] Grzegorz WangPROTIMEon 17-32-3250FSJ Coag (PPP) [Relative time]0.99 {INR} NormalMercy Memorial HospitalComment on above:Performed By: #### PT, PTT #### [facility] [address] [place] [address] Dr. Grzegorz Hercules GUIDELINESSEE BELOWNorwalk Memorial HospitalComment on above:Result Comment: DESIRED INR: 2.0 - 3.0 CONDITIONS NOT LISTED BELOW 2.5 - 3.5 FOR PROSTHETIC HEART VALVE REPLACEMENT 2.5 - 3.5 RECURRENT THROMBOSIS Performed By: #### PT, PTT #### [facility] [address] [place] [address] Dr. Grzegorz WangPT Coag (PPP) [Time]10.7 sNormal9.0-11.6[facility] Comment on above:Performed By: #### PT, PTT #### [facility] [address] [place] [address] Dr. Grzegorz Aguilar [id number] Coag (Bld) [Time]23.5 zYlrkql55.3-36.2[facility]tering [facility] Springfieldment on above:Performed By: #### PT, PTT #### [facility] [address] [place] [address] Dr. Grzegorz Solomon AND SCREENon [id number] AND SCREENNegativeNorwalk Memorial HospitalComveterans affairs medical center on above:Performed By: #### CBC #### [facility] [address] [place] [address] Dr. Grzegorz De Oliveira MICROSCOPIC ONLYon [id number] SEENFreeman Heart InstitutealNONE SEENMercy Memorial HospitalComveterans affairs medical center on above:Performed By: #### PALOMA, LIPA #### [facility] [address] [place] [address] Dr. Grzegorz Valentin identified Cx Nom (U)NOT INDICATEDKing's Daughters Medical Center [place] on above:Performed By: #### PALOMA, LIPA #### [facility] [address] [place] [address] Dr. Grzegorz Go SEENFreeman Heart InstitutealNONE SEENMercy Memorial HospitalComveterans affairs medical center on above:Performed By: #### PALOMA, LIPA #### [facility] [address] [address] [address] Grzegorz Brenner LM Nom (Urine sed)NONE SEENNormalNONE SEENMercy Memorial HospitalComveterans affairs medical center on above:Performed By: #### PALOMA, LIPA #### [facility] [address] [address] [address] Lantigua ChangEpithelial cells LM Ql (Urine sed)RARENormalNONE SEEN /RAREThe German HospitalComment on above:Performed By: #### PALOMA, LIPA #### [facility] [address] [address] [address] Grzegorz Strange SEENNormalNONE SEENThe [facility] HospitalComveterans affairs medical center on above:Performed By: #### PALOMA, LIPA #### [facility] [address] [place] [address] Dr. Grzegorz Eason SEENAbnormal0-2The [facility] HospitalComment on above: Performed By: #### PALOMA, LIPA #### [facility] [address] [address] [address] Grzegorz CardonaBCALMAE SEENNormalNONE SEENThe [facility] HospitalComveterans affairs medical center on above: Performed By: #### PALOMA, LIPA #### [facility] [address] [address] [address] Grzegorz Webb 26-80-0932Lyrinlablmv peptide B (Bld) [Mass/Vol]140.0 pg/mL Normal<=900.0The [facility] HospitalComveterans affairs medical center on above:Performed By: #### CBC #### [facility] [address] [address] [address] Grzegorz Navarrete BAMBI ADMITon [id number] [Catalytic activity/Vol]121 U/L Bycvxn46-103Cjf [facility] HospitalComveterans affairs medical center on above:Performed By: #### CBC #### [facility] [address] [place] [address] Dr. Grzegorz Waters.MB [Mass/Vol]2.44 ng/mLNormal<=3.60[facility] Comment on above:Performed By: #### CBC #### [facility] [address] [address] [address] Grzegorz MehtaTROP9.8 pg/mLNormal4.0-51.3The [facility] HospitalComment on above:Result Comment: CUT-OFF POINTS HAVE BEEN ESTABLISHED BASED ON THE FOURTH UNIVERSAL DEFINITIONS OF MYOCARDIAL INFARCTION. THE UPPER REFERENCE LIMIT (URL) OF TROPONIN, DEFINED THE 99TH PERCENTILE OF cTnI DISTRIBUTION IN A REFERENCE POPULATION, HAS BEEN CONFIRMED THE DECISION THRESHOLD FOR IA DIAGNOSIS.Performed By: #### CBC #### [facility] [address] [place] [address] Dr. Grzegorz WangMYO109 ng/mLCritically high9-82[facility] HospitalComment on above:Performed By: #### CBC #### [facility] [address] [place] [address] Dr. Grzegorz BaezC AUTO DIFFon [id number] #0.0 103/ulNormal0.0-0.1[facility] HospitalComment on above:Performed By: #### CBC #### [facility] [address] [address] [address] Grzegorz WangBasophils/100 WBC (Bld)0.5 %Normal0.2-2.0[facility] Comment on above:Performed By: #### CBC #### [facility] [address] [place] [address] Dr. Grzegorz Tellez #0.1 103/ulNormal0.0-0.7The [facility] HospitalComment on above: Performed By: #### CBC #### [facility] [address] [place] [address] Dr. Grzegorz Reisosinophils/100 WBC (Bld)3.1 %Normal0.9-7.0[facility] Comment on above:Performed By: #### CBC #### [facility] [address] [place] [address] Dr. Grzegorz Reisrythrocyte distribution width (RBC) [Ratio]16.0 %Critically high 11.0-15.0The [facility]ateryna HospitalComment on above:Performed By: #### CBC #### [facility] [address] [place] [address] Dr. Grzegorz Srivastavaatocrit (Bld) [Volume fraction]32.0 %Critically low36.0-48.0 The [facility] HospitalComment on above:Performed By: #### CBC #### [facility] [address] [place] [address] Dr. Grzegorz WangHemoglobin (Bld) [Mass/Vol]10.1 g/dLCritically low12.0-16.0The [facility] HospitalComment on above:Performed By: #### CBC #### [facility] [address] [place] [address] Dr. Grzegorz Barbosa #0.01 10e3/ulNormal0.00-0.03The [facility] HospitalComment on above:Performed By: #### CBC #### [facility] [address] [place] [address] Dr. Grzegorz Barbosa %0.3 %Normal0.0-0.5The [facility] HospitalComment on above: Performed By: #### CBC #### [facility] [address] [place] [address] Dr. Grzegorz Soriano #1.7 103/ulNormal1.2-3.8The [facility] HospitalComveterans affairs medical center on above:Performed By: #### CBC #### [facility] [address] [place] [address] Dr. Grzegorz Wilkinshocytes/100 WBC (Bld)43.1 %Svuczz23.5-60.0[facility] HospitalComment on above:Performed By: #### CBC #### [facility] [address] [place] [address] Dr. Grzegorz AriasUAL DIFF REQNONormalThe [facility] HospitalComment on above: Performed By: #### CBC #### [facility] [address] [place] [address] Dr. Grzegorz Delaney (RBC) [Entitic mass]23.9 pgCritically low26.7-34.0The [facility] HospitalComment on above:Performed By: #### CBC #### [facility] [address] [place] [address] Dr. Grzegorz Finley (RBC) [Mass/Vol]31.6 g/wEVyatpa81.9-35.2The [facility] HospitalComment on above:Performed By: #### CBC #### [facility] [address] [place] [address] Dr. Grzegorz Finley (RBC) [Entitic vol]75.8 fLCritically low81.0-99.0The [facility] HospitalComment on above:Performed By: #### CBC #### [facility] [address] [place] [address] Dr. Grzegorz Wild #0.4 103/ulNormal0.3-0.8The [facility] HospitalComment on above:Performed By: #### CBC #### [facility] [address] [place] [address] Dr. Grzegorz Lemusocytes/100 WBC (Bld)9.7 %Normal1.7-12.0[facility] Comment on above:Performed By: #### CBC #### [facility] [address] [place] [address] Dr. Grzegorz Parada #1.7 103/ulNormal1.4-6.5The [facility] HospitalComment on above:Performed By: #### CBC #### [facility] [address] [place] [address] Dr. Grzegorz Reisophils/100 WBC (Bld)43.3 %Aawqoy65.0-75.0The [facility] HospitalComment on above:Performed By: #### CBC #### [facility] [address] [place] [address] Dr. Grzegorz Corteslet mean volume (Bld) [Entitic vol]10.1 fLNormal9.5-13.5The [facility] HospitalComment on above:Performed By: #### CBC #### [facility] [address] [place] [address] Dr. Grzegorz ArriolaT179 103/noWtnlui040-095Xxa German HospitalComment on above: Performed By: #### CBC #### [facility] [address] [place] [address] [address] [address] Grzegorz WangRBC4.22 106/ulNormal4.20-5.40The [facility] HospitalComment on above:Performed By: #### CBC #### [facility] [address] [place], [place] [address] Dr. Grzegorz WangWBC3.8 103/ulCritically low4.0-11.0The [facility] HospitalComment on above:Performed By: #### CBC #### [facility] [address] [place] [address] [address] [address] Grzegorz WangCT CSPINE WO CONon [id number] CSPINE WO CONEXAMINATION: CT CSPINE WO CON [...] Electronically authenticated by: JEAN-PIERRE GIRALDO Date: 2021-09-02 19:33[facility] HospitalCT STROKE HEAD WOon [id number] STROKE HEAD WOEXAMINATION: CT STROKE HEAD WO [...] Electronically authenticated by: JEAN-PIERRE GIRALDO Date: 2021-09-02 19:29NoFirelands Regional Medical CenterCovid-19 PCR (CVDTBH)on [id number]-CoV-2 (COVID-19) RNA SIOBHAN+probe Ql (Unsp spec)DetectedCritically abnormalNOT DETECTEDThe [facility] on above:Result Comment: This test is not yet approved or cleared by the [place] FDA. When there are no FDA-approved or cleared tests available, and other criteria are met, FDA can make tests available under an emergency access mechanism called an Emergency Use Authorization (EUA). The EUA for this test is supported by the [place] of Health and Human Service's declaration that [...] longer be used).Performed By: #### CBC #### [facility] [address] [place] [address] Dr. Grzegorz WangDRUG SCREEN RAPID (URINE)on [id number]T The [facility] HospitalComment on above:Performed By: #### ERUR #### [facility] [address] [place] [address] Dr. Grzegorz WangBARNegativeNormalNEGATIVEThe [facility] HospitalComment on above: Performed By: #### ERUR #### [facility] [address] [place] [address] Dr. Grzegorz WangBUPNegativeNormalNEGATIVEThe [facility] HospitalComment on above: Performed By: #### ERUR #### [facility] [address] [place] [address] Dr. Grzegorz AlexanedrZONegativeNormalNEGATIVEMercy Memorial HospitalComment on above: Performed By: #### ERUR #### [facility] [address] [place] [address] Dr. Grzegorz WangCOCNegativeNormalNEGATIVEMercy Memorial HospitalComment on above: Performed By: #### ERUR #### [facility] [address] [place] [address] Dr. Grzegorz ConnellWexner Medical CenterComveterans affairs medical center on above: Result Comment: AMP (Amphetamine): 500ng/mL, BAR (Barbituates): 200 ng/mL, BZO (Benzodiazepines): 150 ng/mL, BUP (Buprenorphine): 10 ng/mL, MITZY (Cocaine): 150 ng/mL, mAMP (Methamphetamine): 500 ng/mL, MTD (Methadone): 200 ng/mL, OPI (Opiates): 100 ng/mL, OXY (Oxycodone): 100 ng/mL, PCP (Phencyclidine): 25 ng/mL, PPX (Propoxyphene): 300 ng/mL, THC (Cannabinoids): 50 ng/mL, TCA (Trycyclic Antidepressants): 300 ng/mLPerformed By: #### ERUR #### [facility] [address] [place] [address] Dr. Grzegorz WangDRUG CUT HEADERDRUG CLASS TEST SYSTEM CUT-OFF CONCENTRATIONS ARE FOLLOWS:NormalThe [facility] HospitalComveterans affairs medical center on above:Performed By: #### ERUR #### [facility] [address] [place] [address] Dr. Grzegorz WangmAMPNegativeNormalNEGATIVEMercy Memorial HospitalComveterans affairs medical center on above: Performed By: #### ERUR #### [facility] [address] [place] [address] Dr. Grzegorz WangMTDNegativeNormalNEGATIVEMercy Memorial HospitalComveterans affairs medical center on above: Performed By: #### ERUR #### [facility] [address] [place] [address] Dr. Grzegorz GutierrezINegativeNormalNEGATIVEMercy Memorial HospitalComment on above: Performed By: #### ERUR #### [facility] [address] [address] [address] Grzegorz WangOXYNegativeNormalNEGATIVEMercy Memorial HospitalComveterans affairs medical center on above: Performed By: #### ERUR #### [facility] [address] [address] [address] Grzegorz WangPCPNegativeNormalNEGATIVEMercy Memorial HospitalComment on above: Performed By: #### ERUR #### [facility] [address] [address] [address] Grzegorz WangPPXNegativeNormalNEGATIVEMercy Memorial HospitalComveterans affairs medical center on above: Performed By: #### ERUR #### [facility] [address] [place] [address] Dr. Grzegorz WangTCAPositiveAbnormalNEGATIVEMercy Memorial HospitalComment on above: Performed By: #### ERUR #### [facility] [address] [address] [address] Grzegorz WangTHCNegativeNormalNEGATIVEMercy Memorial HospitalComveterans affairs medical center on above: Performed By: #### ERUR #### [facility] [address] [address] Dr. Grzegorz WangLACTATE/LACTIC ACIDon 21-05-7802Kjiazoi [Moles/Vol]0.7 mmol/L Normal0.4-1.9[facility] on above:Performed By: #### ERUR #### [facility] [address] [place] [address] Dr. Grzegorz WangPROF 14(COMP METB)on 81-97-0550Hoeojzf [Mass/Vol]3.1 g/dL Critically low3.4-5.0[facility] on above:Performed By: #### CBC #### [facility] [address] [address] [address] Grzegorz WangAlbumin/Globulin [Mass ratio]1.0 {ratio}NormalThe [facility] HospitalComment on above:Performed By: #### CBC #### [facility] [address] [address] [address] Grzegorz Oleary [Catalytic activity/Vol]81 U/GGkjahw56-463Cdq [facility] HospitalComment on above:Performed By: #### CBC #### [facility] [address] [address] [address] Grzegorz CovarrubiasT [Catalytic activity/Vol]21 U/BMepiry83-89Fru [facility] HospitalComment on above:Performed By: #### CBC #### [facility] [address] [address] [address] Grzegorz Ortegaon gap [Moles/Vol]11.9 mmol/LNormalThe [facility] Comment on above:Performed By: #### CBC #### [facility] [address] [place] [address] Dr. Grzegorz WangAST [Catalytic activity/Vol]21 U/FZwxacn07-28Llq [facility] HospitalComment on above:Performed By: #### CBC #### [facility] [address] [address] [address] Grzegorz WangBilirubin [Mass/Vol]0.5 mg/dLNormal0.2-1.0[facility] Comment on above:Performed By: #### CBC #### [facility] [address] [place] [address] Dr. Grzegorz WangCalcium [Mass/Vol]8.3 mg/dLCritically low8.5-10.1The [facility] HospitalComment on above:Performed By: #### CBC #### [facility] [address] [place] [address] Dr. Grzegorz WangChloride [Moles/Vol]100 mmol/BCknohc01-151Tad [facility] Comment on above:Performed By: #### CBC #### [facility] [address] [address] [address] Grzegorz WangCO2 [Moles/Vol]25.6 mmol/QGqsych40.0-32.0[facility] Comment on above:Performed By: #### CBC #### [facility] [address] [address] [address] Grzegorz WangCreatinine [Mass/Vol]1.39 mg/dLCritically high0.55-1.02The [facility] HospitalComment on above:Performed By: #### CBC #### [facility] [address] [address] [address] Grzegorz ReisGFR-AF AKDZEFAC65 mL/min/1.98m4Smttzhyezp low>=60The [facility] HospitalComment on above:Performed By: #### CBC #### [facility] [address] [address] [address] Grzegorz ReisGFR-NON AF HKQTHFWR84 mL/min/1.37t8Byqmxdenye low>=60The [facility] HospitalComment on above:Performed By: #### CBC #### [facility] [address] [address] [address] Grzegorz WangGlobulin (S) [Mass/Vol]3.1 g/dLNormalThe [facility] HospitalComment on above:Performed By: #### CBC #### [facility] [address] [address] [address] Grzegorz WangGlucose [Mass/Vol]96 mg/fKCehbow08-341VhdMercy Memorial Hospital Comment on above:Performed By: #### CBC #### [facility] [address] [address] [address] Grzegorz WangPotassium [Moles/Vol]3.5 mmol/LNormal3.5-5.1[facility] Comment on above:Performed By: #### CBC #### [facility] [address] [address] [address] Grzegorz WangProtein [Mass/Vol]6.2 g/dLCritically low6.4-8.2The [facility] HospitalComment on above:Performed By: #### CBC #### [facility] [address] [address] [address] Grzegorz WangSodium [Moles/Vol]134 mmol/LCritically scm691-445Yux [facility] HospitalComment on above:Performed By: #### CBC #### [facility] [address] [place] [address] Dr. Grzegorz Padron nitrogen [Mass/Vol]33.0 mg/dLCritically high7.0-18.0The [facility] HospitalComment on above:Performed By: #### CBC #### [facility] [address] [place] [address] Dr. Grzegorz Padron nitrogen/Creatinine [Mass ratio]23.7 mg/mgNoFirelands Regional Medical CenterComment on above:Performed By: #### CBC #### [facility] [address] [place] [address] Dr. Grzegorz WangPROTIMEsagar [id number] Coag (PPP) [Relative time]{INR}NormalThe [facility] HospitalComveterans affairs medical center on above:Performed By: #### LUCHO DOWA #### [facility] [address] [place] [address] Dr. Grzegorz Hercules GUIDELINESSEE BELOWNorwalk Memorial HospitalComment on above:Result Comment: DESIRED INR: 2.0 - 3.0 CONDITIONS NOT LISTED BELOW 2.5 - 3.5 FOR PROSTHETIC HEART VALVE REPLACEMENT 2.5 - 3.5 RECURRENT THROMBOSIS Performed By: #### PALOMA LIPA #### [facility] [address] [place] [address] Dr. Grzegorz WangPT Coag (PPP) [Time]10.0 sNormal9.0-11.6[facility] Comment on above:Performed By: #### PALOMA LIPA #### [facility] [address] [place] [address] Dr. Grzegorz Aguilar [id number] Coag (Bld) [Time]32.1 cFkvccy22.3-36.2The [facility] HospitalComment on above:Performed By: #### PALOMA LIPA #### [facility] [address] [place] [address] Dr. Grzegorz WangXR CHEST 1 Von [id number] CHEST 1 VEXAM: Yue x-ray HISTORY: . Altered mental status . COMPARISON: 07/29/2021 TECHNIQUE: AP portable upright view of the chest FINDINGS: Heart and vascularity are unremarkable. Lungs are free of focal infiltrates. Loop recorder overlies the left chest. Atherosclerotic changes of the thoracic aorta are noted. IMPRESSION: No acute heart or lung disease identified. Electronically authenticated by: NATACHA JAUREGUI Date: 2021-09-02 19:18[facility] HospitalXR hand RT min 3V*on 27-27-7334FE hand RT min 3V*[facility] [employer] Other XR hand RT min 3V*[facility] [employer] Other XR hand RT min 3V*[address] [place] [address] [employer] Other XR hand RT min 3V*[place] [address] Other XR hand RT min 3V*[facility] [employer] Other XR hand RT min 3V*[facility] [employer] Other XR hand RT min 3V*Patient: Ozzie Gifford MR#: [id number] [employer] Other XR hand RT min 3V*[id number] [employer] Other XR hand RT min 3V*: 1950 Acct:[id number] [employer] Other XR hand RT min 3V*Age/Sex: 71 / F ADM Date: 08/02/21 [facility] [employer] Other XR hand RT min 3V*Loc: [facility] Room: Type: [facility] [employer] Other XR hand RT min 3V*Attending Dr: Susie Arrington MD [facility] [employer] Other XR hand RT min 3V*Copies to: Susie Arrington MDJackson [employer] Other XR hand RT min 3V*Ordering Provider: Susie Arrington MDJackson [employer] Other XR hand RT min 3V*Date of Service: 08/02/21[facility] [employer] Other XR hand RT min 3V* XR/XR hand RT min 3V*: Closed nondisplaced fracture of proximal phalanxConfluence Health [employer] Other XR hand RT min 3V*of right [facility] [employer] Other XR hand RT min 3V*4 viewsRIGHT hand plain filmConfluence Health [employer] Other XR hand RT min 3V*COMPARISON:07/12/21[facility] [employer] Other XR hand RT min 3V*HISTORY:Status post RIGHT long finger proximal phalanx fractureConfluence Health [employer] Other XR hand RT min 3V*No bony alignment stable. No interval healing. Extensive degeneration.[employer] Other XR hand RT min 3V* XR/XR hand RT min 3V*[employer] Other XR hand RT min 3V*IMPRESSION:Stable findingsConfluence Health [employer] Other XR hand RT min 3V*Impression dictated by: Husam Martinez M.D.08/02/2021 12:13 [facility] [employer] Other XR hand RT min 3V*Dictation Location: [id number] [employer] Other XR hand RT min 3V*Transcribed By: SHYANN 08/02/21 [facility]3 [employer] Other XR hand RT min 3V*Dictated By: Husam Martinez DO 08/02/[address] [place] [address] [employer] Other XR hand RT min 3V*Signed By:[employer] Other XR hand RT min 3V*08/02/21 [facility]3[employer] Other BNPon [id number] peptide B (Bld) [Mass/Vol] 192.0 pg/mLNormal<=900.0The [facility] HospitalComment on above:Performed By: #### ERUR #### [facility] [address] [place] [address] Dr. Grzegorz Navarrete BAMBI ADMITon [id number] [Catalytic activity/Vol]82 U/L Mbakxk67-669Twu [facility] HospitalComment on above:Performed By: #### ERUR #### [facility] [address] [place] [address] Dr. Grzegorz Waters.MB [Mass/Vol]2.40 ng/mLNormal<=3.60[facility] Comment on above:Performed By: #### ERUR #### [facility] [address] [place] [address] Dr. Grzegorz MehtaTROP4.7 pg/mLNormal4.0-51.3The [facility] HospitalComment on above:Result Comment: CUT-OFF POINTS HAVE BEEN ESTABLISHED BASED ON THE FOURTH UNIVERSAL DEFINITIONS OF MYOCARDIAL INFARCTION. THE UPPER REFERENCE LIMIT (URL) OF TROPONIN, DEFINED THE 99TH PERCENTILE OF cTnI DISTRIBUTION IN A REFERENCE POPULATION, HAS BEEN CONFIRMED THE DECISION THRESHOLD FOR IA DIAGNOSIS.Performed By: #### ERUR #### [facility] [address] [place] [address] Dr. Grzegorz QuinnO70 ng/mLNormal9-82The [facility] HospitalComment on above: Performed By: #### ERUR #### [facility] [address] [place] [address] Dr. Grzegorz Hurley AUTO DIFFon 22-11-2502EOQX #0.0 103/ulNormal0.0-0.1The [facility] HospitalComment on above:Performed By: #### ERUR #### [facility] [address] [place] [address] Dr. Grzegorz WangBasophils/100 WBC (Bld)0.7 %Normal0.2-2.0The [facility] Comment on above:Performed By: #### ERUR #### [facility] [address] [place] [address] Dr. Grzegorz Tellez #0.2 103/ulNormal0.0-0.7The [facility] HospitalComment on above: Performed By: #### ERUR #### [facility] [address] [place] [address] Dr. Grzegorz Reisosinophils/100 WBC (Bld)4.1 %Normal0.9-7.0[facility] Comment on above:Performed By: #### ERUR #### [facility] [address] [place] [address] Dr. Grzegorz Reisrythrocyte distribution width (RBC) [Ratio]15.7 %Critically high 11.0-15.0The [facility] HospitalComment on above:Performed By: #### ERUR #### [facility] [address] [place] [address] Dr. Grzegorz WangHematocrit (Bld) [Volume fraction]32.6 %Critically low36.0-48.0 The [facility] HospitalComment on above:Performed By: #### ERUR #### [facility] [address] [place] [address] Dr. Grzegorz WangHemoglobin (Bld) [Mass/Vol]9.9 g/dLCritically low12.0-16.0The [facility] HospitalComment on above:Performed By: #### ERUR #### [facility] [address] [place] [address] Dr. Grzegorz Barbosa #0.02 10e3/ulNormal0.00-0.03The [facility] HospitalComment on above:Performed By: #### ERUR #### [facility] [address] [place] [address] Dr. Grzegorz Barbosa %0.3 %Normal0.0-0.5The [facility] HospitalComment on above: Performed By: #### ERUR #### [facility] [address] [place] [address] Dr. Grzegorz Soriano #1.7 103/ulNormal1.2-3.8The [facility] HospitalComment on above:Performed By: #### ERUR #### [facility] [address] [place] [address] Dr. Grzegorz Finleymphocytes/100 WBC (Bld)28.0 %Qtainc15.5-60.0The [facility] HospitalComment on above:Performed By: #### ERUR #### [facility] [address] [place] [address] Dr. Grzegorz Bowers DIFF REQNONormalThe [facility] HospitalComment on above: Performed By: #### ERUR #### [facility] [address] [place] [address] Dr. Grzegorz Finley (RBC) [Entitic mass]23.9 pgCritically low26.7-34.0The [facility] HospitalComment on above:Performed By: #### ERUR #### [facility] [address] [place] [address] Dr. Grzegorz Finley (RBC) [Mass/Vol]30.4 g/cSRgvggr07.9-35.2The [facility] HospitalComment on above:Performed By: #### ERUR #### [facility] [address] [place] [address] Dr. Grzegorz Finley (RBC) [Entitic vol]78.7 fLCritically low81.0-99.0The [facility] HospitalComment on above:Performed By: #### ERUR #### [facility] [address] [place] [address] Dr. Grzegorz Wild #0.6 103/ulNormal0.3-0.8The [facility] HospitalComment on above:Performed By: #### ERUR #### [facility] [address] [place] [address] Dr. Grzegorz Lemusocytes/100 WBC (Bld)10.4 %Normal1.7-12.0[facility] Comment on above:Performed By: #### ERUR #### [facility] [address] [place] [address] Dr. Grzegorz OmerUT #3.3 103/ulNormal1.4-6.5The [facility] HospitalComment on above:Performed By: #### ERUR #### [facility] [address] [place] [address] Dr. Grzegorz Omerutrophils/100 WBC (Bld)56.5 %Pttxko57.0-75.0The [facility] HospitalComment on above:Performed By: #### ERUR #### [facility] [address] [place] [address] Dr. Grzegorz WangPlatelet mean volume (Bld) [Entitic vol]10.2 fLNormal9.5-13.5The [facility] HospitalComment on above:Performed By: #### ERUR #### [facility] [address] [place] [address] Dr. Grzegorz WangPLT216 103/lgTljyru586-269Qth [facility] HospitalComment on above: Performed By: #### ERUR #### [facility] [address] [place] [address] Dr. Grzegorz WangRBC4.14 106/ulCritically low4.20-5.40[facility] on above:Performed By: #### ERUR #### [facility] [address] [place] [address] Dr. Grzegorz WangWBC5.9 103/ulNormal4.0-11.0The [facility] HospitalComment on above: Performed By: #### ERUR #### [facility] [address] [place] [address] Dr. Grzegorz WangCT HEAD WO CONon 01-11-2050QK HEAD WO CONEXAMINATION: CT HEAD WO CON [...] Electronically authenticated by: DORIAN GREENE Date: 2021-07-29 15:01[facility] URINE PROFILEon 04-19-4403Gjtqohoes Ql (U)NegativeNormal NEGATIVEMercy Memorial HospitalComment on above:Performed By: #### ERUR #### [facility] [address] [place] [address] Dr. Grzegorz Lovearity (U)CLEARNormalCLEARMercy Memorial HospitalComment on above: Performed By: #### ERUR #### [facility] [address] [place] [address] Dr. Grzegorz Delvalle (U)LT. YELLOWNormalYELLOWMercy Memorial HospitalComment on above:Performed By: #### ERUR #### [facility] [address] [place] [address] Dr. Grzegorz Dawson micrscopic examination will be performed if indicated. NormalThe [facility] HospitalComment on above:Performed By: #### ERUR #### [facility] [address] [place] [address] Dr. Grzegorz WangGlucose Ql (U)NegativeNormalNEGATIVEMercy Memorial HospitalComment on above:Performed By: #### ERUR #### [facility] [address] [place] [address] Dr. Grzegorz WangHemoglobin Ql (U)NegativeNormalNEGATIVEGalion Community Hospital on above:Performed By: #### ERUR #### [facility] [address] [place] [address] Dr. Grzegorz WangKetones Ql (U)NegativeNormalNEGATIVEMercy Memorial HospitalComment on above:Performed By: #### ERUR #### [facility] [address] [place] [address] Dr. Grzegorz WangLEUKOCYTESNegativeNormalNEGATIVEMercy Memorial HospitalComment on above:Performed By: #### ERUR #### [facility] [address] [place] [address] Dr. Grzegorz Paez Ql (U)NegativeNormalNEGATIVEThe [facility] HospitalComment on above:Performed By: #### ERUR #### [facility] [address] [place] [address] Dr. Grzegorz WangpH (U)5.5 [pH]Normal5-9The [facility] HospitalComment on above: Performed By: #### ERUR #### [facility] [address] [place] [address] Dr. Grzegorz WangSPEC GRAVITY1.673Tkozco0.005-<=1.025The [facility] HospitalComment on above:Performed By: #### ERUR #### [facility] [address] [place] [address] Dr. Grzegorz Jones PROTEINNegativeNormalNEGATIVE/ TRACEThe [facility] Comment on above:Performed By: #### ERUR #### [facility] [address] [place] [address] Dr. Grzegorz Durham MICRO INDNOT INDICATEDNormalThe [facility] HospitalComment on above:Performed By: #### ERUR #### [facility] [address] [place] [address] Dr. Grzegorz Irwin Qn (U)0.2 {Lidya'U}/dLNormal0.2 - 1.0The [facility] HospitalComment on above:Performed By: #### ERUR #### [facility] [address] [place] [address] Dr. Grzegorz Canela 14(COMP METB)on 95-55-6050Eiqyggq [Mass/Vol]3.1 g/dL Critically low3.4-5.0The [facility] HospitalComment on above:Performed By: #### ERUR #### [facility] [address] [place] [address] Dr. Grzegorz WangAlbumin/Globulin [Mass ratio]1.0 {ratio}NormalThe [facility] HospitalComment on above:Performed By: #### ERUR #### [facility] [address] [place] [address] Dr. Grzegorz Oleary [Catalytic activity/Vol]99 U/PNpenmd09-517Czo [facility] HospitalComment on above:Performed By: #### ERUR #### [facility] [address] [place] [address] Dr. Grzegorz CovarrubiasT [Catalytic activity/Vol]18 U/JIsvtml76-58Xay [facility] HospitalComment on above:Performed By: #### ERUR #### [facility] [address] [place] [address] Dr. Grzegorz Ortegaon gap [Moles/Vol]10.5 mmol/LNormalMercy Memorial Hospital Comment on above:Performed By: #### ERUR #### [facility] [address] [place] [address] Dr. Grzegorz WangAST [Catalytic activity/Vol]14 U/LCritically zbu96-68Drd [facility] HospitalComment on above:Performed By: #### ERUR #### [facility] [address] [place] [address] Dr. Grzegorz WangBilirubin [Mass/Vol]0.3 mg/dLNormal0.2-1.0[facility] Comment on above:Performed By: #### ERUR #### [facility] [address] [place] [address] Dr. Grzegorz WangCalcium [Mass/Vol]8.5 mg/dLNormal8.5-10.1[facility] Comment on above:Performed By: #### ERUR #### [facility] [address] [place] [address] Dr. Grzegorz WangChloride [Moles/Vol]108 mmol/LCritically gxaw25-397Jox [facility] HospitalComment on above:Performed By: #### ERUR #### [facility] [address] [place] [address] Dr. Grzegorz WangCO2 [Moles/Vol]26.0 mmol/VYaizza05.0-32.0[facility] Comment on above:Performed By: #### ERUR #### [facility] [address] [place] [address] Dr. Grzegorz WangCreatinine [Mass/Vol]1.07 mg/dLCritically high0.55-1.02[facility] Memorial HospitalComment on above:Performed By: #### ERUR #### [facility] [address] [place] [address] Dr. Grzegorz ReisGFR-AF TOGOLESE>60Normal>=60The [facility] HospitalComment on above:Performed By: #### ERUR #### [facility] [address] [address] [address] Grzegorz ReisGFR-NON AF RWDLIGSQ27 mL/min/1.35e3Tcxzouvncs low>=60The [facility] HospitalComment on above:Performed By: #### ERUR #### [facility] [address] [place] [address] Dr. Grzegorz WangGlobulin (S) [Mass/Vol]3.0 g/dLNormalThe [facility] HospitalComment on above:Performed By: #### ERUR #### [facility] [address] [place] [address] Dr. Grzegorz WangGlucose [Mass/Vol]87 mg/fTDkngoy29-880EnrMercy Memorial Hospital Comment on above:Performed By: #### ERUR #### [facility] [address] [place] [address] Dr. Grzegorz WangPotassium [Moles/Vol]3.5 mmol/LNormal3.5-5.1[facility] Comment on above:Performed By: #### ERUR #### [facility] [address] [place] [address] Dr. Grzegorz WangProtein [Mass/Vol]6.1 g/dLCritically low6.4-8.2[facility] Memorial HospitalComment on above:Performed By: #### ERUR #### [facility] [address] [place] [address] Dr. Grzegorz WangSodium [Moles/Vol]141 mmol/YAkdrhe245-778GdaMercy Memorial Hospital Comment on above:Performed By: #### ERUR #### [facility] [address] [place] [address] Dr. Yilan ChangUrea nitrogen [Mass/Vol]22.0 mg/dLCritically high7.0-18.0Mercy Memorial HospitalComment on above:Performed By: #### ERUR #### [facility] [address] [place] [address] Dr. Grzegorz Padron nitrogen/Creatinine [Mass ratio]20.6 mg/mgNoFirelands Regional Medical CenterComment on above:Performed By: #### ERUR #### [facility] [address] [place] [address] Dr. Grzegorz WangPROTIMEsagar [id number] Coag (PPP) [Relative time]0.99 {INR} NormalThe [facility] HospitalComment on above:Performed By: #### PTT, PT #### [facility] [address] [place] [address] Dr. Grzegorz Hercules GUIDELINESSEE BELOWNorwalk Memorial HospitalComment on above:Result Comment: DESIRED INR: 2.0 - 3.0 CONDITIONS NOT LISTED BELOW 2.5 - 3.5 FOR PROSTHETIC HEART VALVE REPLACEMENT 2.5 - 3.5 RECURRENT THROMBOSIS Performed By: #### PTT, PT #### [facility] [address] [place] [address] Dr. Grzegorz WangPT Coag (PPP) [Time]10.7 sNormal9.0-11.6The [facility] Comment on above:Performed By: #### PTT, PT #### [facility] [address] [place] [address] Dr. Grzegorz Aguilar 17-07-1215pXPD Coag (Bld) [Time]31.0 hZkjqog58.3-36.2[facility] HospitalComment on above:Performed By: #### PTT, PT #### [facility] [address] [place] [address] Dr. Grzegorz WangXR CHEST 1 Von [id number] CHEST 1 VEXAM: XR CHEST 1 V [...] Electronically authenticated by: NATACHA TO Date: 2021-07-29 14:54Norwalk Memorial HospitalXR hand RT min 3V*on 15-15-2871QL hand RT min 3V*[facility] [employer] Other XR hand RT min 3V*[facility] [employer] Other XR hand RT min 3V*[address] [place] [address] [employer] Other XR hand RT min 3V*[place] [address] [employer] Other XR hand RT min 3V*XRay [facility] [employer] Other XR hand RT min 3V*[facility] [employer] Other XR hand RT min 3V*Patient: Ozzie Gifford MR#: [id number] [employer] Other XR hand RT min 3V*02805Wajhk [employer] Other XR hand RT min 3V*: 1950 Acct:[id number] [employer] Other XR hand RT min 3V*Age/Sex: 71 / F ADM Date: 07/12/21 [facility] [employer] Other XR hand RT min 3V*Loc: [facility] Room: Type: [facility] [employer] Other XR hand RT min 3V*Attending Dr: Susie Arrington MD [facility] [employer] Other XR hand RT min 3V*Ordering Provider: Susie Arrington MDJackson [employer] Other XR hand RT min 3V*Date of Service: 07/12/21[facility] [employer] Other XR hand RT min 3V* XR/XR hand RT min 3V*: Right hand painJackson [employer] Other XR hand RT min 3V*Copies to: Susie Arrington MDJackson [employer] Other XR hand RT min 3V*XR hand RT min 3V* 07/12/2021 10:43 AM [facility] [employer] Other XR hand RT min 3V*SIGNS AND SYMPTOMS: Fall, pain in right hand greatest in the right thumb with swellingJackson [employer] Other XR hand RT min 3V*PROTOCOL: Frontal, lateral, and oblique radiographs of the right handJackson [employer] Other XR hand RT min 3V*COMPARISON: NoneJackson [employer] Other XR hand RT min 3V*FINDINGS:[employer] Other XR hand RT min 3V*There is mild narrowing of the distal interphalangeal joints. There is a mild flexion deformity ofJackson [employer] Other XR hand RT min 3V*the fifth proximal interphalangeal joint. There is mild narrowing of the first metacarpophalangealJackson [employer] Other XR hand RT min 3V*junction with mild to moderate degenerative change at the first carpometacarpal joint. There is noNsaint joseph hospital of kirkwood [employer] Other XR hand RT min 3V*evidence of acute displaced fracture. No evidence of dislocation.[facility] [employer] Other XR hand RT min 3V* XR/XR hand RT min 3V*[facility] [employer] Other XR hand RT min 3V*IMPRESSION:[employer] Other XR hand RT min 3V*No evidence of fracture.[employer] Other XR hand RT min 3V*Degenerative changes are noted, greatest in the thumb.[employer] Other XR hand RT min 3V*There is a mild flexion deformity of the fifth proximal interphalangeal joint.[employer] Other XR hand RT min 3V*Impression dictated by: Bambi Sung M.D.07/12/2021 12:29 [facility]Ns[facility] [employer] Other XR hand RT min 3V*Dictation Location: [id number] [employer] Other XR hand RT min 3V*Transcribed By: SHYANN 07/12/21 [facility] [employer] Other XR hand RT min 3V*Dictated By: Bambi Sung II, MD 07/12/[address] [place] [address] [employer] Other XR hand RT min 3V*Signed By:[employer] Other xr hand RT min 3V*07/12/[address] [place] [address] [employer] Other cbc AUTO DIFFon [id number] #0.1 103/ulNormal 0.0-0.1The German HospitalComment on above:Performed By: #### CBC #### [facility] [address] [address] [address] Grzegorz Griffinsophils/100 WBC (Bld)0.8 %Normal0.2-2.0[facility] Comment on above:Performed By: #### CBC #### [facility] [address] [address] [address] Grzegorz Tellez #0.3 103/ulNormal0.0-0.7The German HospitalComment on above: Performed By: #### CBC #### [facility] [address] [address] [address] Grzegorz Reisosinophils/100 WBC (Bld)3.8 %Normal0.9-7.0[facility] Comment on above:Performed By: #### CBC #### [facility] [address] [place] [address] Dr. Grzegorz Reisrythrocyte distribution width (RBC) [Ratio]14.1 %Wtrwfg80.0-15.0 [facility] HospitalComment on above:Performed By: #### CBC #### [facility] [address] [place] [address] Dr. Grzegorz WangHematocrit (Bld) [Volume fraction]34.4 %Critically low36.0-48.0 The German HospitalComment on above:Performed By: #### CBC #### [facility] [address] [place] [address] Dr. Grzegorz WangHemoglobin (Bld) [Mass/Vol]10.4 g/dLCritically low12.0-16.0The German HospitalComment on above:Performed By: #### CBC #### [facility] [address] [place] [address] Dr. Grzegorz Barbosa #0.04 10e3/ulCritically high0.00-0.03[facility] Comment on above:Performed By: #### CBC #### [facility] [address] [place] [address] Dr. Grzegorz Barbosa %0.5 %Normal0.0-0.5ThOhioHealth Arthur G.H. Bing, MD, Cancer CenterComment on above: Performed By: #### CBC #### [facility] [address] [place] [address] Dr. Grzegorz Soriano #1.7 103/ulNormal1.2-3.8The German HospitalComment on above:Performed By: #### CBC #### [facility] [address] [place] [address] Dr. Grzegorz Wilkinshocytes/100 WBC (Bld)22.1 %Ojmlqp56.5-60.0The German HospitalComment on above:Performed By: #### CBC #### [facility] [address] [place] [address] Dr. Grzegorz Bowers DIFF REQNONormalThe German HospitalComment on above: Performed By: #### CBC #### [facility] [address] [place] [address] Dr. Grzegorz Finley (RBC) [Entitic mass]25.6 pgCritically low26.7-34.0The German HospitalComment on above:Performed By: #### CBC #### [facility] [address] [place] [address] Dr. Grzegorz Finley (RBC) [Mass/Vol]30.2 g/aFFtfccr12.9-35.2The German HospitalComment on above:Performed By: #### CBC #### [facility] [address] [place] [address] Dr. Grzegorz Ricks (RBC) [Entitic vol]84.5 iNQsvimf12.0-99.0The German HospitalComment on above:Performed By: #### CBC #### [facility] [address] [place] [address] Dr. Grzegorz Wild #0.8 103/ulNormal0.3-0.8The German HospitalComment on above:Performed By: #### CBC #### [facility] [address] [place] [address] Dr. Grzegorz Lemusocytes/100 WBC (Bld)11.1 %Normal1.7-12.0[facility] Comment on above:Performed By: #### CBC #### [facility] [address] [place] [address] Dr. Grzegorz Parada #4.7 103/ulNormal1.4-6.5The German HospitalComment on above:Performed By: #### CBC #### [facility] [address] [place] [address] Dr. Grzegorz Omerutrophils/100 WBC (Bld)61.7 %Icnnwl21.0-75.0The German HospitalComment on above:Performed By: #### CBC #### [facility] [address] [place] [address] Dr. Grzegorz WangPlatelet mean volume (Bld) [Entitic vol]10.6 fLNormal9.5-13.5The German HospitalComment on above:Performed By: #### CBC #### [facility] [address] [place] [address] Dr. Grzegorz WangPLT281 103/mwLszqbv111-145Zhy German HospitalComment on above: Performed By: #### CBC #### [facility] [address] [address] [address] Grzegorz WangRBC4.07 106/ulCritically low4.20-5.40The German HospitalComment on above:Performed By: #### CBC #### [facility] [address] [place] [address] Dr. Grzegorz WangWBC7.6 103/ulNormal4.0-11.0The German HospitalComment on above: Performed By: #### CBC #### [facility] [address] [place] [address] Dr. Grzegorz WangCT CHEST WO CONon [id number] CHEST WO CONEXAMINATION: CT CHEST WO CON [...] Electronically authenticated by: LUCI MARADIAGA Date: 2021-05-08 18:59NoFirelands Regional Medical CenterCT HEAD WO CONon [id number] HEAD WO CONEXAMINATION: CT HEAD WO CON, [...] Electronically authenticated by: MITZI LOWRY Date: 2021-05-08 17:27NoFirelands Regional Medical CenterCT NECK ST WO CONon [id number] NECK ST WO CONEXAMINATION: CT NECK ST [...] The parotid glands, parapharyngeal spaces and left litharge supervisor spaces appear normal. A tiny amount of air in the venous system in the right parapharyngeal space and in the venous system of the right litharge supervisor space. A tiny amount air in probably [...] space and venous system in the right litharge supervisor space, likely iatrogenic. No abnormal fluid collection. Prior right carotid endarterectomy. 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 Electronically authenticated by: BASIM CABAN Date: 2021-05-08 19:23[facility] HospitalPROF CHEM 8 (BAS METB)on 56-04-1351Cpofm gap [Moles/Vol]12.3 mmol/LNormalThe German HospitalComment on above:Performed By: #### PALOMA LIPA #### [facility] [address] [address] [address] Grzegorz WangCalcium [Mass/Vol]8.4 mg/dLCritically low8.5-10.1The German HospitalComment on above:Performed By: #### PALOMA LIPA #### [facility] [address] [address] [address] Grzegorz WangChloride [Moles/Vol]108 mmol/LCritically xdef62-498Lbv [facility] on above:Performed By: #### PALOMA LIPA #### [facility] [address] [address] [address] Grzegorz WangCO2 [Moles/Vol]25.9 mmol/KMuvskf31.0-30.0[facility] Comment on above:Performed By: #### PALOMA, LIPA #### [facility] [address] [address] [address] Grzegorz WangCreatinine [Mass/Vol]1.18 mg/dLCritically high0.52-1.04The German HospitalComment on above:Performed By: #### PALOMA, LIPA #### [facility] [address] [place] [address] Dr. Grzegorz ReisGFR-AF PNOSOPRR53 mL/min/1.77y1Vxdyicvtgs low>=60The German HospitalComment on above:Performed By: #### PALOMA, LIPA #### [facility] [address] [place] [address] Dr. Grzegorz Grewal-NON AF RDUQBTKV15 mL/min/1.03g6Bmlwgnuymu low>=60The German HospitalComment on above:Performed By: #### PALOMA, LIPA #### [facility] [address] [place] [address] Dr. Grzegorz WangGlucose [Mass/Vol]84 mg/tSPfcwyh58-002CuzMercy Memorial Hospital Comment on above:Performed By: #### PALOMA, LIPA #### [facility] [address] [place] [address] Dr. Grzegorz WangPotassium [Moles/Vol]3.2 mmol/LCritically low3.4-5.0Mer[facility] HospitalComment on above:Performed By: #### PALOMA, LIPA #### [facility] [address] [place] [address] Dr. Grzegorz WangSodium [Moles/Vol]143 mmol/BFfmkzy139-156EfrMercy Memorial Hospital Comment on above:Performed By: #### PALOMA, LIPA #### [facility] [address] [place] [address] Dr. Grzegorz WangUrea nitrogen [Mass/Vol]35.0 mg/dLCritically high7.0-18.0The German HospitalComment on above:Performed By: #### PALOMA, LIPA #### [facility] [address] [place] [address] Dr. Grzegorz WangUrea nitrogen/Creatinine [Mass ratio]29.7 mg/mgNorwalk Memorial HospitalComment on above:Performed By: #### PHIL DOW #### [facility] [address] [address] [address] Grzegorz WangXR PELVIS 1_2 VIEWSon [id number] PELVIS 1_2 VIEWSEXAM: XR PELVIS 1_2 VIEWS, XR SACRUM_COCCYX HISTORY: History of fall COMPARISON: None. TECHNIQUE: Single supine view of the pelvis FINDINGS: No acute fracture is seen. Joint alignment is normal. Joint spaces are preserved. The soft tissues appear unremarkable. IMPRESSION: No radiographic evidence for acute displaced fracture or malalignment. Electronically authenticated by: LUCI MARADIAGA Date: 2021-05-08 17:24[facility] HospitalXR wrist LT min 3V*on 30-26-2348PU wrist LT min 3V*[facility] [employer] Other XR wrist LT min 3V*[facility] [employer] Other XR wrist LT min 3V*[address] [place] [address] [employer] Other XR wrist LT min 3V*[place], [place] [address]Dlqsk [employer] Other XR wrist LT min 3V*XRay [facility] [employer] Other XR wrist LT min 3V*[facility] [employer] Other XR wrist LT min 3V*Patient: Ozzie Gifford MR#: [id number] [employer] Other XR wrist LT min 3V*[address]Tmibo [employer] Other XR wrist LT min 3V*: 1950 Acct:[id number] [facility] [employer] Other XR wrist LT min 3V*Age/Sex: 70 / F ADM Date: 05/03/21 [facility] [employer] Other XR wrist LT min 3V*Loc: SOXD [facility]: [facility] Other XR wrist LT min 3V*Attending Dr: Susie Arrington MD [employer] Other XR wrist LT min 3V*Ordering Provider: Susie Arrington MDTem[employer] Other XR wrist LT min 3V*Date of Service: 05/03/21[employer] Other XR wrist LT min 3V* XR/XR wrist LT min 3V*: Other specified [facility]procedural [facility] HospitalTem[facility] Other XR wrist LT min 3V*Copies to: Susie Arrington MD [employer] Other XR wrist LT min 3V*4 viewsLEFT wrist plain filmJackson [employer] Other XR wrist LT min 3V*COMPARISON:03/31/21[employer] Other XR wrist LT min 3V*HISTORY:Status post ORIF distal radius fractureJackson [employer] Other XR wrist LT min 3V*No hardware failure. Adequate bony alignment. Healing distal radius fracture noted.[employer] Other XR wrist LT min 3V* XR/XR wrist LT min 3V*[employer] Other XR wrist LT min 3V*IMPRESSION:Healing distal radius fracture. No hardware failure.[employer] Other XR wrist LT min 3V*Impression dictated by: Husam Martinez M.D.05/03/2021 2:12 [facility] Other XR wrist LT min 3V*Dictation Location: [address] [place] [address] [employer] Other XR wrist LT min 3V*Transcribed By: SHYANN 05/03/21 1412 [employer] Other XR wrist LT min 3V*Dictated By: Husam Martinez DO 05/03/21 [facility]Tem[facility] Other XR wrist LT min 3V*Signed By:[employer] Other XR wrist LT min 3V*05/03/21 [facility] CenterTem[facility] Other XR FOREARM LT 2 VIEWSon [id number] FOREARM LT 2 VIEWSIMAGES REVIEWED: XR WRIST [...] Electronically authenticated by: MARYSE LANGFORD Date: 2021-03-30 20:17[facility] HospitalCardiovascular Lab Reporton [id number] Lab Report [facility] #: [id number] Department of Physician: Donna Henderson M.D. Division of Service Date: 03/03/2020 Cardiology Birthdate: 1950 Adult Cardiovascular Room #: [address] [address] Cardiovascular Laboratory Report FINAL IMPRESSION: 1. Moderate [...] femoral vein and artery was obtained. A 6-Canadian 11 cm sheath was inserted in each. Difficulty exchanging the micropuncture kit for a 6-Canadian sheath encountered for the arterial access site; [...] physiological assessment of the coronary lesions. A 6-Canadian XB 3.5 guide catheter was advanced over J-wire and coaxially engaged into the left main ostium. The [employer] pressure wire was advanced through the catheter with pressures normalized just off the exiting the catheter. The wire was used to traverse the suspected stenosis. An instantaneous wave-free ratio was performed. The wire was removed. Final angiography showed SARAH-3 flow with no dissection, thrombus, or distal wire trauma. The guide catheter was removed. A 5-Canadian JR4 guide catheter was advanced in and coaxially engaged into the right coronary ostium. The [employer] pressure wire was advanced through the catheter [...] Doty M.D. Date Trans: 03/03/2020 12:28 P/laviniao DN_[id number] cc: Ruben Salvador M.D. Heart Failure/ Transplant Mailstop 1110 [facility] [address], RIP SAW OPERATOR [address] [facility] Hospitalaretha Mailstop 1118 [facility] [address]JqsrurPyvAshtabula [facility] Vital Signs Date TimeVital SignValuePerforming RjnpubjwhMpwlzxfw04-18-9351 11:28-0400Body jhbyql799.94 Marie Collado TIN RECOVERY WORKER-C Work Phone: [facility]10-23-2025 11:28-0400 Body mass index (BMI) [Ratio]28.7 kg/m2Lisa Collado TIN RECOVERY WORKER-C Work Phone: [facility]10-23-2025 11:28-0400 Body nrbuox09.94 kgLisa Heaven TIN RECOVERY WORKER-C Work Phone: [facility]10-23-2025 11:28-0400 Diastolic blood qazdmwwy04 mm[Hg]Cindy Collado TIN RECOVERY WORKER-C Work Phone: [phone])[address]10-23-2025 11:28-0400 Heart ulgq487 /minLisa Aichholz TIN RECOVERY WORKER-C Work Phone: [phone])[address]10-23-2025 11:28-0400 Respiratory rate18 /minLisa Aichholz TIN RECOVERY WORKER-C Work Phone: [phone])[address]10-23-2025 11:28-0400 SaO2% (BldA) [Mass fraction]96 %Cindy Aichholz TIN RECOVERY WORKER-C Work Phone: [phone]10-23-2025 11:28-0400 Systolic blood hovyrhhd108 mm[Hg]Cindy Aichholz TIN RECOVERY WORKER-C Work Phone: [phone])[address]10-16-2025 09:08-0400 Body .94 cmLisa Aichholz TIN RECOVERY WORKER-C Work Phone: [phone] [place], [place] [address]10-16-2025 09:08-0400 Body mass index (BMI) [Ratio]29 kg/m2Lisa Aichholz TIN RECOVERY WORKER-C Work Phone: [phone] [place], [place] [address]10-16-2025 09:08-0400 Body ternizznrul94.3 [degF]Cindy Aichholz TIN RECOVERY WORKER-C Work Phone: [phone])[address]10-16-2025 09:08-0400 Body .56 kgLisa Aichholz TIN RECOVERY WORKER-C Work Phone: [phone])[address]10-16-2025 09:08-0400 Diastolic blood mm[Hg]Cindy Aichholz TIN RECOVERY WORKER-C Work Phone: [phone]10-16-2025 09:08-0400 Heart rate80 /minLisa Aichholz TIN RECOVERY WORKER-C Work Phone: 1(694)[address]10-16-2025 09:08-0400 Respiratory rate16 /minLisa Aichholz TIN RECOVERY WORKER-C Work Phone: [facility]10-16-2025 09:08-0400 SaO2% (BldA) [Mass fraction]97 %Cindy Aichholz TIN RECOVERY WORKER-C Work Phone: [phone]-[facility]10-16-2025 09:08-0400 Systolic blood ykdwsvla228 mm[Hg]Cindy Aichholz TIN RECOVERY WORKER-C Work Phone: [phone] [place], [place] [address]507-03-2025 14:50-0400 Body dfjton515.94 cmLisa Aichholz Work Phone: [phone])[address]07-03-2025 14:50-0400 Body mass index (BMI) [Ratio]30 kg/m2Lisa Aichholz Work Phone: [phone]07-03-2025 14:50-0400 Body edytqs06.12 kgLisa Aichholz Work Phone: [phone]07-03-2025 14:50-0400 Diastolic blood mozxvhib09 mm[Hg]Cindy Aichholz Work Phone: [phone] [place], [place] [address]507-03-2025 14:50-0400 Heart rate70 /minLisa Aichholz Work Phone: [phone] [place], [place] [address]596507-03-2025 14:50-0400 SaO2% (BldA) [Mass fraction]94 %Cindy Aichholz Work Phone: [phone] [place], [place] [address]507-03-2025 14:50-0400 Systolic blood vzfppoys588 mm[Hg]Cindy Aichholz Work Phone: [phone] [place], [place] 5596507-01-2025 09:10-0400 Body mass index (BMI) [Ratio]30 kg/m2Lisa Aichholz TIN RECOVERY WORKER Work Phone: [facility] HospitalWbahptuqvn23-09-1516 09:10-0400Body temperature 97.81 [degF]Cindy Aichholz TIN RECOVERY WORKER Work Phone: [facility] HospitalPxdfcdaist63-12-8745 09:10-0400Body cdyose64.03 kgCindy Collado TIN RECOVERY WORKER Work Phone: [facility] HospitalUoycfivrnk77-77-3786 09:10-0400Diastolic blood knfwuagb25 mm[Hg]Cindy Dakotaz TIN RECOVERY WORKER Work Phone: [facility] HospitalItzwmucexg67-69-0329 09:10-0400Heart rate58 /min Cindy Dakotaz TIN RECOVERY WORKER Work Phone: [facility] HospitalXnooulnkwm24-36-4631 09:10-0400Respiratory rate19 /minLisa Duncanz TIN RECOVERY WORKER Work Phone: [facility] HospitalPgvtujqhmu00-42-9579 09:10-8372MzK4% (BldA) [Mass fraction]97 %Cindyluna Duncanz TIN RECOVERY WORKER Work Phone: [facility] HospitalVptcuwouud05-10-9533 09:10-0400Systolic blood bcxanbuu155 mm[Hg]Cindyluna Duncanz TIN RECOVERY WORKER Work Phone: [facility] HospitalTdzhfeqdec15-65-1972 10:12-0400Body mass index (BMI) [Ratio]29.32 kg/m2Cindy Collado TIN RECOVERY WORKER Work Phone: [facility] HospitalWnsautmobg87-24-6118 10:12-0400Body temperature 98.8 [degF]Cindyluna Duncanz TIN RECOVERY WORKER Work Phone: [facility] HospitalKlfslepbem26-21-1763 10:12-0400Body ygpbkj13.4 kg Cindy Dakotaz TIN RECOVERY WORKER Work Phone: [facility] HospitalHcpiksctrf51-49-0228 10:12-0400Diastolic blood kzexmeov22 mm[Hg]Cindy Dakotaz TIN RECOVERY WORKER Work Phone: [facility] HospitalOedukoacxh19-90-2653 10:12-0400Heart rate71 /min Cindy Césarholz TIN RECOVERY WORKER Work Phone: [facility] HospitalZhjymoyict89-09-2987 10:12-0400Respiratory rate18 /minCindy Collado TIN RECOVERY WORKER Work Phone: [facility] HospitalYdnfqqarzi39-31-9656 10:12-2024VaX0% (BldA) [Mass fraction]98 %Cindy Collado TIN RECOVERY WORKER Work Phone: noMercy [facility]-Brooks HospitalLfqysvgrjy70-53-3392 10:12-0400Systolic blood lmgnjejb759 mm[Hg]Cindy Collado TIN RECOVERY WORKER Work Phone: [facility] HospitalIztxxvxeon46-84-3624 13:09-0400Body mass index (BMI) [Ratio]29.25 kg/z8ZtfylJameson Mcleod TIN RECOVERY WORKER Work Phone: [facility] HospitalCbiurhsjbj05-18-3721 13:09-0400Body blwikx06.22 kgSajoni Mcleod TIN RECOVERY WORKER Work Phone: [facility] HospitalEumscgfous84-04-1295 13:09-0400Diastolic blood ecpnjnvz43 mm[Hg]Jameson Mcleod TIN RECOVERY WORKER Work Phone: [facility] HospitalQoapbpywwl00-29-0102 13:09-0400Heart rate66 /min Jameson Mcleod TIN RECOVERY WORKER Work Phone: noMercy McCune-Brooks HospitalVxyjehxjum26-90-0703 13:09-5294CqM7% (BldA) [Mass fraction]98 %Jameson Mcleod TIN RECOVERY WORKER Work Phone: noMercy McCune-Brooks HospitalWawxvitbtb29-22-2138 13:09-0400Systolic blood ymgqdjgb336 mm[Hg]Jameson Mcleod TIN RECOVERY WORKER Work Phone: [facility] HospitalNlbyjlqhtc83-16-9637 13:49-0400Body mass index (BMI) [Ratio]29.55 kg/m2Cindy Collado TIN RECOVERY WORKER Work Phone: [facility] HospitalTecycmfxtu15-52-3445 13:49-0400Body temperature 98.1 [degF]Cindy Collado TIN RECOVERY WORKER Work Phone: noMercy McCune-Brooks HospitalSwtkvubkbk48-51-6505 13:49-0400Body tundlx79.94 kgCindy Collado TIN RECOVERY WORKER Work Phone: [phone] [place], [place] [address]Hmnvezzpne68-60-6997 13:49-0400Diastolic blood apaqkoee06 mm[Hg]Cindy Césarholz TIN RECOVERY WORKER Work Phone: [facility] HospitalLrmuqbuwhh25-50-1602 13:49-0400Heart rate74 /min Cindy Césarholz TIN RECOVERY WORKER Work Phone: [facility] HospitalGggiwhuubc32-81-0495 13:49-0400Respiratory rate18 /minLisa Césarholz TIN RECOVERY WORKER Work Phone: [facility] HospitalSbkegapdpi56-59-5560 13:49-8134FwF9% (BldA) [Mass fraction]96 %Cindy Erickhholz TIN RECOVERY WORKER Work Phone: [facility] HospitalCgbmlcvdxy16-04-2228 13:49-0400Systolic blood ocgimkud471 mm[Hg]Cindy Césarholz TIN RECOVERY WORKER Work Phone: [facility] HospitalMttiqbxsaz80-08-4590 12:49-0500Blood Pressure LocationLauren Monserrat [facility]03-04-2025 12:49-0500Diastolic blood lmftgupw96 mm[Hg]Kori German [facility]03-04-2025 12:49-0500Heart rate61 /minLauren Monserrat [facility]03-04-2025 12:49-0500Respiratory rate18 /minLauren Monserrat [facility]03-04-2025 12:49-0500Systolic blood pvojairn152 mm[Hg]Kori German [facility]02-19-2025 08:51-0500Diastolic blood tnnlcfzo69 mm[Hg]BERNICE CLEMENTE [facility]02-19-2025 08:51-0500Heart rate63 /minJENNIFER CORRIE [facility]02-19-2025 08:51-0500Respiratory rate17 /minJENNIFER CORRIE [facility]02-19-2025 08:51-0500Systolic blood hnvyfseu038 mm[Hg]BERNICE CLEMENTE [facility]01-09-2025 10:15-0500Body bzdmny083.94 Urbano Day MD Work Phone: 1([phone] [place], [place] [address]01-09-2025 10:15-0500 Body mass index (BMI) [Ratio]23.7 kg/k4XasvyzShaikh Barb VIDES Work Phone: [phone]01-09-2025 10:15-0500 Body kgShaikh Barb VIDES Work Phone: 1([phone] [place], [place] 5847601-09-2025 10:15-0500 Diastolic blood mm[Hg]Shaikh Barb VIDES Work Phone: 1(713)730-[address] [place], [place] 5596501-09-2025 10:15-0500 Heart rate74 /Jeannine Day MD Work Phone: 1([phone] [place], [place] 5596501-09-2025 10:15-0500 Respiratory rate18 /Jeannine Day MD Work Phone: 1([phone])6-[address] [place], [place] 5596501-09-2025 10:15-0500 SaO2% (BldA) [Mass fraction]97 %Shaikh Barb VIDES Work Phone: 1(960)915-[address] [place], [place] [address]01-09-2025 10:15-0500 Systolic blood ghzxaonw668 mm[Hg]Shaikh Barb VIDES Work Phone: [facility]12-10-2024 09:55-0500 Body larlgm438.9 Marie Lindseyludmila TIN RECOVERY WORKER Work Phone: [facility] HospitalQushcbetzx45-09-4704 09:55-0500Body mass index (BMI) [Ratio]28.19 kg/m2Lisa Césarteresaz TIN RECOVERY WORKER Work Phone: [facility] HospitalFmsebastis16-90-2010 09:55-0500Body temperature 97.81 [degF]Cindy Lindseyludmila TIN RECOVERY WORKER Work Phone: [facility] HospitalNyvcqnoehk30-13-8063 09:55-0500Body diqkbn52.68 kgLisa Césarludmila TIN RECOVERY WORKER Work Phone: [facility] HospitalByazpadonw51-73-3997 09:55-0500Diastolic blood eyucxqcd71 mm[Hg]Cindy Césarludmila TIN RECOVERY WORKER Work Phone: [facility] HospitalMbaihiuyww86-07-7542 09:55-0500Heart rate61 /min Cindy Césarteresaz TIN RECOVERY WORKER Work Phone: [facility] HospitalGcmbiqnqsv16-82-7954 09:55-0500Respiratory rate19 /minLisa Dakotaz TIN RECOVERY WORKER Work Phone: [facility] HospitalSjoptxmukz97-60-5678 09:55-1837TjB4% (BldA) [Mass fraction]98 %Cindy Césarteresaz TIN RECOVERY WORKER Work Phone: [facility] HospitalMrlyamrehd13-37-7369 09:55-0500Systolic blood ptqrkezk080 mm[Hg]Cindy Césarteresaz TIN RECOVERY WORKER Work Phone: [facility] HospitalXwjnaibjys86-87-7074 08:53-0400Body nlyigj198.9 cmChristophjohn paul Zazueta DO Work Phone: noMer[facility]-Brooks HospitalZjoylebkmr99-73-3122 08:53-0400Body mass index (BMI) [Ratio]28.15 kg/z0Kzlvwzcnrir Marbin DO Work Phone: noMer[facility]-Brooks HospitalYzlzdfglpg57-25-4043 08:53-0400Body xabfbc58.59 kgChristopher Zazueta DO Work Phone: [facility] HospitalKggcnrxgqz79-75-7307 08:53-0400Diastolic blood clryscdw21 mm[Hg]Nakul Zazueta DO Work Phone: noMer[facility]oks HospitalCqbbvqrmmy20-51-0305 08:53-0400Systolic blood gmozkdvi455 mm[Hg]Nakul Zazueta DO Work Phone: [facility] HospitalRlcveawpwl70-13-4655 13:12-0400Body lexmfg309.9 cmBenanabell Clark DO Work Phone: [facility] HospitalWdvwvhnoyl67-48-2337 13:12-0400Body mass index (BMI) [Ratio]38.92 kg/o3Plfuapsdanabell Olmedok DO Work Phone: [facility] HospitalKcfciszwpg89-88-2814 13:12-0400Body .44 kgBenanabell Olmedok DO Work Phone: [facility] HospitalUrlptwsdbc60-76-9483 09:58-0400Body slggid558.9 Stephisa Heaven TIN RECOVERY WORKER Work Phone: [facility] HospitalSxwzgfzzsf02-58-7225 09:58-0400Body mass index (BMI) [Ratio]26.64 kg/m2Lisa Césarholz TIN RECOVERY WORKER Work Phone: [facility] HospitalTkardtejnr78-52-1197 09:58-0400Body temperature 98.49 [degF]Cindy Collado TIN RECOVERY WORKER Work Phone: [facility] HospitalZfenhckzim30-61-3172 09:58-0400Body xytqll27.96 kgLisa Erickhholz TIN RECOVERY WORKER Work Phone: [facility] HospitalQrejpdapiv13-05-2275 09:58-0400Diastolic blood jtcysgye20 mm[Hg]Cindy Dakotaz TIN RECOVERY WORKER Work Phone: [facility] HospitalCgnxwdqbwc25-90-5359 09:58-0400Heart rate60 /min Cindy Collado TIN RECOVERY WORKER Work Phone: [place] [address]Hcutazmsee90-90-0560 09:58-0400Respiratory rate17 /minCindy Lindseyteresabharati TIN RECOVERY WORKER Work Phone: [facility] HospitalXhurbmyzoe48-43-8158 09:58-3653QiR0% (BldA) [Mass fraction]100 %Cindy Collado TIN RECOVERY WORKER Work Phone: [facility] HospitalWaswdnoaft79-89-9957 09:58-0400Systolic blood spehiuvf796 mm[Hg]Cindy Collado TIN RECOVERY WORKER Work Phone: [facility] HospitalDyvhemmohf50-10-0208 13:01-0400Blood Pressure LocationJENNIFER CORRIE [facility]07-10-2024 13:01-0400Diastolic blood ekxsddxs71 mm[Hg]BERNICE CORRIE [facility]07-10-2024 13:01-0400Heart rate62 /minJENNIFER CORRIE [facility]07-10-2024 13:01-0400Respiratory rate19 /minJENNIFER CORRIE [facility]07-10-2024 13:01-0400Systolic blood ldqbijvz809 mm[Hg]BERNICE CORRIE [facility]06-27-2024 09:52-0400Body hugdoh407.94 cmMD Shaikh Barb Work Phone: [facility]06-27-2024 09:52-0400 Body mass index (BMI) [Ratio]23.7 kg/m2MD Shaikh Barb Work Phone: [facility]06-27-2024 09:52-0400 Body tnsyljwtyey57.8 [degF]MD Shaikh Day Work Phone: [facility]06-27-2024 09:52-0400 Body kgMD Kishaajay Work Phone: 1(875)[address]06-27-2024 09:52-0400 Diastolic blood hrkykesn18 mm[Hg]MD Shaikh Day Work Phone: 1(382)738-[address] [place], [place] 5596506-27-2024 09:52-0400 Heart rate78 /min Kishaajay Work Phone: 1(526)[address]06-27-2024 09:52-0400 Respiratory rate16 /min Barb Work Phone: [phone])50338 [address]06-27-2024 09:52-0400 SaO2% (BldA) [Mass fraction]98 %MD Shaikh Day Work Phone: 1(550)203-[address] [place], [place] 5596506-27-2024 09:52-0400 Systolic blood zbknvyua208 mm[Hg]MD Shaikh Day Work Phone: 1(454)611-[address] [place], [place] 5596506-03-2024 12:39-0400 Blood Pressure LocationAurora Orzech [facility]2024 12:39-0400Body csiudsdmdyw83.88 [degF]Carmen Orzech [facility]2024 12:39-0400Diastolic blood jxgcfzug79 mm[Hg]Carmen Orzech [facility]2024 12:39-0400Heart rate78 /minAurora Orzech [facility]2024 12:39-0400Systolic blood qtezxlhi133 mm[Hg]Carmen Quintero [facility]05-21-2024 08:53-0400Body ezjdez955.4 cmMartin Arita MD Work Phone: [facility]05-21-2024 08:53-0400Body mass index (BMI) [Ratio]26.85 kg/y8CcqalocMartin Arita MD Work Phone: [facility]05-21-2024 08:53-0400Body midhgz59.37 kgMartin Arita MD Work Phone: [facility]05-21-2024 08:53-0400Diastolic blood prsqrufp14 mm[Hg]Martin Arita MD Work Phone: [facility]05-21-2024 08:53-0400Heart rate 56 /minMartin Arita MD Work Phone: [facility]05-21-2024 08:53-0400Systolic blood dmoznqej880 mm[Hg]Martin Arita MD Work Phone: [facility]03-30-2024 11:10-0400Body hfgekl299.94 cmMD Shaikh Day Work Phone: [facility]03-30-2024 11:10-0400 Body mass index (BMI) [Ratio]23.8 kg/m2MD Shaikh Day Work Phone: [facility]03-30-2024 11:10-0400 Body juhgihbhqmg38.2 [degF]MD Shaikh Day Work Phone: [facility]03-30-2024 11:10-0400 Body .15 kgMD Shaikh Day Work Phone: [facility]03-30-2024 11:10-0400 Diastolic blood mm[Hg]MD Shaikh Day Work Phone: 1(101)548-[address] [place], [place] 5596503-30-2024 11:10-0400 Heart rate58 /minMD Shaikh Day Work Phone: 1(246)212-[address] [place], [place] 5596503-30-2024 11:10-0400 Respiratory rate16 /minMD Shaikh Day Work Phone: 1(456)560-[address] [place], [place] 5596503-30-2024 11:10-0400 SaO2% (BldA) [Mass fraction]98 %MD Shaikh Day Work Phone: 1(891)[address]03-30-2024 11:10-0400 Systolic blood exfjnqmr605 mm[Hg]MD Shaikh Day Work Phone: 1(627)[address]03-28-2024 09:49-0400 Body nlrouu917.94 cm Shaikh Barb Work Phone: 1(967)[address]03-28-2024 09:49-0400 Body mass index (BMI) [Ratio]23.8 kg/m2MD Shaikh Day Work Phone: [phone])07338 [address]03-28-2024 09:49-0400 Body ulvmysombzx18.6 [degF]MD Shaikh Day Work Phone: 1(454)403-[address] [place], [place] 5596503-28-2024 09:49-0400 Body hyianc07.15 kgMD Shaikh Day Work Phone: 1(810)015-[address] [place], [place] 5596503-28-2024 09:49-0400 Diastolic blood armkeebn43 mm[Hg]MD Shaikh Day Work Phone: 1(730)[address]03-28-2024 09:49-0400 Heart rate73 /minMD Shaikh Day Work Phone: 1(226)795-[address] [place], [place] 5596503-28-2024 09:49-0400 SaO2% (BldA) [Mass fraction]97 %MD Shaikh Day Work Phone: 1([phone])[address]03-28-2024 09:49-0400 Systolic blood arniiwrl177 mm[Hg]MD Shaikh Day Work Phone: 1(494)[address]03-02-2024 15:15-0500 Body pfjvdlvcbqe11 [degF]MD Shaikh Day Work Phone: 1(894)[address]03-02-2024 15:15-0500 Diastolic blood qapsygid51 mm[Hg]MD Shaikh Day Work Phone: 1(191)[address]03-02-2024 15:15-0500 Heart rate76 /minMD Shaikh Day Work Phone: 1(229)[address]03-02-2024 15:15-0500 Respiratory rate17 /minMD Shaikh Day Work Phone: 1(501)148-[address] [place], [place] 5596503-02-2024 15:15-0500 SaO2% (BldA) [Mass fraction]95 %MD Shaikh Day Work Phone: [phone](333)[address]03-02-2024 15:15-0500 Systolic blood lxidjudm074 mm[Hg]MD Shaikh Day Work Phone: 1(917)[address]03-02-2024 04:48-0500 Body .9 kg Shaikh Barb Work Phone: 1(633)[address]03-01-2024 13:07-0500 Body afrkjx766.94 cm Shaikh Barb Work Phone: 1(758)[address]03-01-2024 11:49-0500 Inhaled oxygen flow rate8 L/minMD Shaikh Day Work Phone: 1(732)[address]03-01-2024 10:02-0500 Body mass index (BMI) [Ratio]25.9 kg/m2MD Shaikh Kishaajay Work Phone: 1(535)414[address]02-27-2024 09:48-0500 Body .94 cmMD Shaikh Kishaajay Work Phone: 1(727)493-[address] [place], [place] 5596502-27-2024 09:48-0500 Body mass index (BMI) [Ratio]29 kg/m2MD Shaikh Leandrojustin Work Phone: 1([phone])106[address]02-27-2024 09:48-0500 Body hsnobbmpcvz24.6 [degF]MD Shaikh Day Work Phone: 1(924)[address]02-27-2024 09:48-0500 Body yfnbok90.85 kgMD Shaikh Barb Work Phone: 1(301)[address]02-27-2024 09:48-0500 Diastolic blood prnjggis08 mm[Hg]MD Shaikh Day Work Phone: 1(625)[address]02-27-2024 09:48-0500 Heart rate76 /minMD Shaikh Beardajay Work Phone: 1(263)[address]02-27-2024 09:48-0500 Respiratory rate16 /minMD Shaikh Day Work Phone: 1(523)[address]02-27-2024 09:48-0500 SaO2% (BldA) [Mass fraction]98 %MD Shaikh Day Work Phone: 1(286)910-[address] [place], [place] 5596502-27-2024 09:48-0500 Systolic blood trdlqeyw653 mm[Hg]MD Shaikh Day Work Phone: 1(991)[address]02-07-2024 12:52-0500 Body gtunoh073.4 cmDuncan Haddad MD Work Phone: [facility]02-07-2024 12:52-0500Body mass index (BMI) [Ratio]26.95 kg/v3MvxddlemoDuncan Haddad MD Work Phone: [facility]02-07-2024 12:52-0500Body wgadjm13.6 kgDuncan Haddad MD Work Phone: 1(376)868-[facility]02-07-2024 12:52-0500Diastolic blood kfunmlie60 mm[Hg]Duncan Haddad MD Work Phone: 1(423)[address]02-07-2024 12:52-0500Heart rate 67 /minDuncan Haddad MD Work Phone: [facility]02-07-2024 12:52-0500Systolic blood oeiozmgl942 mm[Hg]Duncan Haddad MD Work Phone: 1(523)592-[address] [place], [place] [address]3201-25-2024 10:48-0500Blood Pressure LocationAurora Orzech [facility]01-25-2024 10:48-0500Diastolic blood yuesggan47 mm[Hg]Carmen Orzech [facility]01-25-2024 10:48-0500Heart rate80 /minAurora Orzech [facility]01-25-2024 10:48-0500Systolic blood xomtpigb723 mm[Hg]Carmen Orzech [facility] [place] 612881-15-2023 12:10-0500Diastolic blood jesmxvuk96 mm[Hg]MD Shaikh Day Work Phone: [facility]11-15-2023 12:10-0500 Systolic blood ldqalhve249 mm[Hg]MD Shaikh Day Work Phone: [facility]09-05-2023 14:10-0400 Body plejbr984.94 Rochelle Temple Other [employer] Other 09-05-2023 14:10-0400Body mass index (BMI) [Ratio] 26.53 kg/r2JlrzfuKori Temple Other [employer] Other 09-05-2023 14:10-0400Body jvwvjepbxda68.1 [degF]Kori Temple Other [employer] Other 09-05-2023 14:10-0400Body ueurwn69.69 kgKori Temple Other [employer] Other 09-05-2023 14:10-0400Diastolic blood qyxabpqs71 mm[Hg] Kori Temple Other [employer] Other 09-05-2023 14:10-0400Respiratory rate18 /minKori Temple Other [employer] Other 09-05-2023 14:10-9982WpD2% (BldA) [Mass fraction]98 % Kori Temple Other [employer] Other 09-05-2023 14:10-0400Systolic blood qzmdajji191 mm[Hg] Kori Temple Other [employer] Other 02-22-2023 09:30-0500Body avvioc283.94 cmDenver Juarez Other [employer] Other 02-22-2023 09:30-0500Body mass index (BMI) [Ratio] 28.72 kg/p3ThnwpypDenver Juarez Other [employer] Other 02-22-2023 09:30-0500Body ugsybwepsfz43.8 [degF] Denver Juarez Other [employer] Other 02-22-2023 09:30-0500Body tsexcj98.95 kgManataly Juarez Other [employer] Other 02-22-2023 09:30-0500Diastolic blood mm[Hg] Denver Juarez Other [employer] Other 02-22-2023 09:30-8649OpY9% (BldA) [Mass fraction]98 % Denver Juarez Other [employer] Other 02-22-2023 09:30-0500Systolic blood boiiqcel967 mm[Hg] Denver Juarez Other [employer] Other 10-12-2022 12:12-0400Body djbvfobmhbn15.9 [degF]MD Shaikh Day Work Phone: [facility]10-12-2022 12:12-0400 Diastolic blood dlcefazh75 mm[Hg]MD Shaikh Day Work Phone: [facility]10-12-2022 12:12-0400 Heart rate95 /minMD Shaikh Day Work Phone: [facility]10-12-2022 12:12-0400 Respiratory rate16 /minMD Shaikh Day Work Phone: 1(471)765-[address] [place], [place] 5596510-12-2022 12:12-0400 SaO2% (BldA) [Mass fraction]98 %MD Shaikh Day Work Phone: 1(369)76038 [address]10-12-2022 12:12-0400 Systolic blood jnvdjgzo370 mm[Hg]MD Shaikh Day Work Phone: [phone])[address]10-12-2022 04:04-0400 Body cedctu24.6 kgMD Kam Kishaajay Work Phone: [phone])[address] [place], [place] 5847610-11-2022 17:12-0400 Body .48 cmMD Kam Kishaajay Work Phone: 1(693)[address] [place], [place] 5847610-11-2022 13:57-0400 Diastolic blood yplpeose21 mm[Hg]MD Shaikh Day Work Phone: 1(891)[address] [place], [place] 5847610-11-2022 13:57-0400 Heart rate77 /minMD Kam Kishaajay Work Phone: 1(731)[address]10-11-2022 13:57-0400 Respiratory rate16 /min Shaikh Leandrojustin Work Phone: 1(412)[address]10-11-2022 13:57-0400 SaO2% (BldA) [Mass fraction]95 %MD Shaikh Day Work Phone: 1(285)[address]10-11-2022 13:57-0400 Systolic blood osfirdpb483 mm[Hg]MD Shaikh Day Work Phone: 1(590)[address]10-11-2022 11:24-0400 Body yqrhmjltlfj43.9 [degF]MD Shaikh Day Work Phone: 1(504)[address]10-11-2022 03:56-0400 Body sdeuxw146.48 cmMD Shaikh Day Work Phone: [facility]10-11-2022 03:56-0400 Body kurkqz95.9 kgMD Shaikh Day Work Phone: [facility]08-17-2022 10:15-0400 Body oquriy798.94 cmManataly Juarez Other [facility] [employer] Other 08-17-2022 10:15-0400Body mass index (BMI) [Ratio]35.9 kg/p4HhpswxoDenver Juarez Other [employer] Other 08-17-2022 10:15-0400Body xyeylxlzxlp79.2 [degF] Denver Juarez Other [employer] Other 08-17-2022 10:15-0400Body nhvuhs26.18 kgManataly Juarez Other [employer] Other 08-17-2022 10:15-0400Diastolic blood hsvsmfze70 mm[Hg] Denver Juarez Other [employer] Other 08-17-2022 10:15-2950OzN5% (BldA) [Mass fraction]97 % Denver Juarez Other [employer] Other 08-17-2022 10:15-0400Systolic blood lwwqysag763 mm[Hg] Denver Juarez Other [employer] Other 08-12-2022 14:15-0400Body qcoigq043.94 Melinda Das Other [employer] Other 08-12-2022 14:15-0400Body mass index (BMI) [Ratio]35.9 kg/i1Tugkn Dsa Other [employer] Other 08-12-2022 14:15-0400Body khnvmkxokpj85.2 [degF]Ilda Das Other [employer] Other 08-12-2022 14:15-0400Body .18 kgPeggy Das Other [employer] Other 08-12-2022 14:15-0400Respiratory rate18 /minPeggy Das Other [employer] Other 08-12-2022 14:15-3830ZbV8% (BldA) [Mass fraction]98 % Ilda Das Other [employer] Other 08-10-2022 17:00-0400Body .94 [facility] Other [employer] Other 08-10-2022 17:00-0400Body mass index (BMI) [Ratio]35.9 kg/c8Mywvfiqchristina Arrington Other [employer] Other 08-10-2022 17:00-0400Body mdxbat16.18 kgCochristina Arrington Other [employer] Other 03-23-2022 11:45-0400Body oljxcx157.94 [facility] Murphy Other [employer] Other 03-23-2022 11:45-0400Body mass index (BMI) [Ratio]35.9 kg/v7Rwuqiei Murphy Other [employer] Other 03-23-2022 11:45-0400Body tfobvl30.18 kgSusie Arrington Other [facility] [employer] Other 01-20-2022 10:00-0500Body .94 cmManataly Juarez Other [facility] [employer] Other 01-20-2022 10:00-0500Body mass index (BMI) [Ratio] 36.27 kg/b7UjuyhctDenver Juarez Other [employer] Other 01-20-2022 10:00-0500Body .5 [degF] Denver Juarez Other [employer] Other 01-20-2022 10:00-0500Body .09 kgMattbarbara Juarez Other [employer] Other 01-20-2022 10:00-0500Diastolic blood omlhxhkm20 mm[Hg] Denver Juarez Other [employer] Other 01-20-2022 10:00-1860GkO4% (BldA) [Mass fraction]99 % Denver Juarez Other [employer] Other 01-20-2022 10:00-0500Systolic blood wzertvrn862 mm[Hg] Denver Juarez Other [employer] Other 10-21-2021 10:00-0400Body pivekn570.94 cmManataly Juarez Other [employer] Other 10-21-2021 10:00-0400Body mass index (BMI) [Ratio] 36.27 kg/p9Omfqhzhtye Juarez Other [employer] Other 10-21-2021 10:00-0400Body ldfoub06.09 kgMattmarylouw Larry Other [employer] Other 10-21-2021 10:00-0400Diastolic blood weqgljvb78 mm[Hg] Denver Larry Other [employer] Other 10-21-2021 10:00-0400Systolic blood xekiwjat824 mm[Hg] Denver Juarez Other [employer] Other 09-30-2021 10:30-0400Body eeushw814.94 cmMattbarbara Juarez Other [employer] Other 09-30-2021 10:30-0400Body mass index (BMI) [Ratio]35.9 kg/g1Dwrtwbotye Juarez Other [employer] Other 09-30-2021 10:30-0400Body xbdlym46.18 kgMattmaryloutye Juarez Other [employer] Other 09-30-2021 10:30-0400Diastolic blood fzprwncy81 mm[Hg] Denver Juarez Other [employer] Other 09-30-2021 10:30-0400Systolic blood mm[Hg] Denver Juarez Other [employer] Other Encounters Encounter DateEncounter TypeCare ProviderFacilityStart: 97-99-6806ylunyrbuttRdbe J AichholzFacility:[facility]art: 12-03-2024 End: 42-33-3411aywurqnbkiSfrk J Aichholz TIN RECOVERY WORKER-C Work Phone: [phone]-[facility]ifgluir Health NeurologyStart: 12-03-2024 End: 10-53-4580Dscssug encounter procedureSsara Mcleod APRN-FNP-C-[facility] Neurology Work Phone: Start: 11-26-2024 End: 94-45-0425xvazfdkqlbYzpi J Aichholz TIN RECOVERY WORKER-C Work Phone: [facility] Work Phone: Start: 11-26-2024 End: 03-66-2580Ihrxjcx encounter procedureCindy Collado TIN RECOVERY WORKER-C-[facility] Work Phone: Start: 94-05-4328Raqxikluux RecurringLisa Orlando Collado PG-Q-[address] TherapyStart: 11-17-2024 End: 38-03-0374jowhefghhqOhmsfr X OrzechFacility:FTMISSION BERNAL CAMPUStart: 11-17-2024 End: 37-14-2612Dmkwagl encounter procedureAurora X Orzech [facility] Start: 40-09-3615Udkgofh encounter procedureLisa Heaven TIN RECOVERY WORKER-C Work Phone: [facility] [place]art: 10-08-2024 End: 49-17-6786zshisyadpyJbbxcd X OrzechFacility:EU [place]kyStart: 10-08-2024 End: 10-50-6603Tovvcud encounter procedureAurora X Orzech [facility] Start: 09-29-2024 End: 60-62-4315JtfumlLgoz Aichholz TIN RECOVERY WORKER Work Phone: NOSO CWM FMComment on above:Migraine with aura and without status migrainosus, not intractableAnxiety and depressionStart: 09-28-2024 End: 86-58-7767PiomtwVngv Aichholz TIN RECOVERY WORKER Work Phone: [facility] CWM FMStart: 09-22-2024 End: 46-73-9262YqtnwgKwpt Aichholz TIN RECOVERY WORKER Work Phone: N[facility] CWM FMComment on above:Psychophysiological insomniaStart: 39-40-4470caxcgnaspwXpgfpxd R WATERSFacility:EU [place]vueStart: 09-15-2024 End: 02-34-3689jtkrqhnmdoKryqkak R WATERSFacility:FTMCStart: 09-15-2024 End: 71-86-0629Ajjanas encounter procedureAlexandr OVALLE [facility] Start: 09-03-2024 End: 91-31-8383nvkavmxjblRgouzcm R WATERSFacility:FTMCStart: 08-21-2024 End: 04-72-3738Etbdgncih Result EncounterGeneric External Data ProviderNOMS External Department UnsolicitedStart: 08-21-2024 End: 92-56-1245Rfvbxigar Result EncounterGeneric External Data ProviderNOMS External Department UnsolicitedStart: 08-18-2024 End: 91-72-9913ampvpcxcavTuapemt R WATERSFacility:FTMCStart: 08-18-2024 End: 19-66-3708Ephhrwf encounter procedureAlexandr OVALLE [facility] Start: 08-17-2024 End: 21-47-8130AvmubaVsws Aichholz TIN RECOVERY WORKER Work Phone: NOAA CWM FMComment on above:Peripheral vascular disease, unspecified (Primary Dx); Atherosclerosis of coronary artery of [place] heart, unspecified vessel or lesion type, unspecified whether angina present ; Stenosis of carotid artery, unspecified lateralityStart: 08-13-2024 End: 17-17-3619pwgwxeqcqlMdlf J Aichholz Work Phone: [facility] Work Phone: Start: 08-13-2024 End: 43-63-4295Vjwkmdy encounter [facility] WTQC[facility] Work Phone: Start: 08-12-2024 End: 67-16-0290XywhbpSqhs Aichholz TIN RECOVERY WORKER Work Phone: noms CWM FMComment on above:Primary hypertension ; Anxiety and depression ; Psychophysiological insomnia; Atherosclerosis of coronary artery of [place] heart, unspecified vessel or lesion type, unspecified whether angina present ; Stenosis of right carotid artery; Cerebrovascular accident (CVA), unspecified mechanism (HCC); Migraine with aura and without status migrainosus, not intractableMuscle spasm (Primary Dx)Start: 08-11-2024 End: 76-00-8538Ddazjy Elijah Collado TIN RECOVERY WORKER Work Phone: noms CW FMStart: 08-11-2024 End: 76-88-1716Ybwqsi Elijah Collado TIN RECOVERY WORKER Work Phone: noms CW FMStart: 08-11-2024 End: 15-19-2849Btohejcdd Result EncounterGeneric External Data ProviderNOMS External Department UnsolicitedStart: 08-11-2024 End: 88-23-5323jsojxkqrabVDPA AICHHOLZNot AvailableStart: 08-11-2024 End: 98-07-6407Ueuuua outpatient visit 25 minutesCindy Collado TIN RECOVERY WORKER Work Phone: noms CWM FMComment on above:Primary hypertension (Primary Dx); Atherosclerosis of coronary artery of [place] heart, unspecified vessel or lesion type, unspecified whether angina present ; CRYSTAL (generalized anxiety disorder) ; Recurrent major depressive disorder, in full remission ; Episode of recurrent major depressive disorder, unspecified depression episode severity ; Overflow incontinence of urine; Psychophysiological insomniaStart: 08-05-2024 End: 89-29-7641qhepqswivsOFVYSLMV E PERRYFacility:EU [place]kyStart: 08-05-2024 End: 74-68-6584Ljfwdwf encounter procedureJENNIFER E CORRIE [facility] Start: 07-22-2024 End: 15-32-5589bflqgsfsoyJFUKWS [facility] Start: 07-16-2024 End: 10-67-9085oxfgvqnglcIDLBSYKM E PERRYFacility:EU [place]vueStart: 07-16-2024 End: 29-83-2316Gkjpens encounter procedureJENNIFER E CORRIE [facility] start: 07-01-2024 End: 52-44-1509XsrimwOitc Heaven FLORES Work Phone: noms CW FMComment on above:Chronic UTI (Primary Dx); Anxiety and depression (CMS/HCC); Overflow incontinence of urineStart: 06-30-2024 End: 18-74-0102Gsx Drop offPatrick R OVALLE [facility] Start: 06-30-2024 End: 85-31-7249toqwucoromCokpnaf R WATERSFacility:FTMCStart: 06-30-2024 End: 84-99-4358Dbwwcva encounter procedureJENNIFER E CORRIE [facility] Comment on above:Primary progressive aphasia (CMS/HCC) (Primary Dx); Ataxia; Memory difficulty; History of ischemic stroke; Other insomnia; DULCE MARIA (obstructive sleep apnea); Severe episode of recurrent major depressive disorder, without psychotic features (HCC) (CMS/HCC); Severe anxietyStart: 06-30-2024 End: 68-69-6639lhxfgwtfmoVNMB ROMEROot AvailableStart: 06-24-2024 End: 41-55-3333Ataauecji Result EncounterSsara Mcleod TIN RECOVERY WORKER Work Phone: NOMS External Department UnsolicitedStart: 06-24-2024 End: 22-23-2007Tivnqcuow Result EncounterSsara Mcleod TIN RECOVERY WORKER Work Phone: NOMS External Department UnsolicitedStart: 06-15-2024 End: 98-77-1141Ravzsddavian Hare PhD Work Phone: ANA SANDUSKYStart: 06-15-2024 End: 98-04-5277Wbzvfedavian Hare PhD Work Phone: ANA SANDUSKYStart: 06-15-2024 End: 83-49-9315tvghtqebtgFWZCOIEA E PERRYFacility:EU [place]kyStart: 06-15-2024 End: 70-74-6077Dlidglt encounter Mylene Hare PhD Work Phone: ANA SANDUSKYComment on above:Expressive aphasia (Primary Dx); Memory difficulty; History of ischemic stroke; Staring episodes; Other insomnia; Stress due to family tensionStart: 2024 End: 57-39-5847Bxbhwe svetlanaheetCindy Collado TIN RECOVERY WORKER Work Phone: NOM[facility] CWM FMStart: 2024 End: 83-92-1992Uwoaug flowsheetCindy Collado TIN RECOVERY WORKER Work Phone: NOM[facility] CWM FMStart: 2024 End: 51-98-3919Cqdobu outpatient visit 10 minutesLisa Collado TIN RECOVERY WORKER Work Phone: NOM[facility] CWM FMComment on above:Acute diffuse otitis externa of both ears (Primary Dx)Start: 2024 End: 79-35-8897xxdlkgigapKNLD AICHHOLZNot AvailableStart: 06-01-2024 End: 74-10-1731Wfceqv Franco Mcleod TIN RECOVERY WORKER Work Phone: aNA BELLEVUEStart: 06-01-2024 End: 15-29-0782Wcjsoh Franco Mcleod TIN RECOVERY WORKER Work Phone: aNA BELLEVUEStart: 06-01-2024 End: 38-52-1005Bsgxyj outpatient visit 40 minutesJameson Mcleod TIN RECOVERY WORKER Work Phone: aNA BELLEVUEComment on above:Ataxia (Primary Dx); Gait instability; Expressive aphasia; Memory difficulty; History of ischemic strokeStart: 06-01-2024 End: 19-86-7840gmnwhywrboHYDRQ HARSHANot AvailableStart: 05-29-2024 End: 90-79-3914HiwjcwTpqt Aichholz [employer] RECOVERY WORKER Work Phone: [facility] FMComment on above:Dizziness and giddiness (Primary Dx)Start: 05-12-2024 End: 24-31-1507Qxfziz flowsheetSuziesa Aichholz [employer]IN RECOVERY WORKER Work Phone: [facility] FMStart: 05-12-2024 End: 85-80-9147Jhgucg flowsheetLisa Aichholz [employer]IN RECOVERY WORKER Work Phone: [facility] FMStart: 05-12-2024 End: 12-15-2624Kzvraqrcw Result EncounterLisa Aichholz [employer]IN RECOVERY WORKER Work Phone: NOTQ External Department UnsolicitedStart: 05-12-2024 End: 98-85-6415wcekteglorFSVP AICHHOLZNot AvailableStart: 05-12-2024 End: 37-23-2830Zyiwlt outpatient visit 25 minutesLisa Erickhholz [employer]IN RECOVERY WORKER Work Phone: [facility] FMComment on above:Primary hypertension (CMS/HCC) (Primary Dx); Cerebrovascular accident (CVA), unspecified mechanism (CMS/HCC); Dizziness and giddiness; Overflow incontinence of urine; CRYSTAL (generalized anxiety disorder) (CMS/HCC); Impaired mobility and activities of daily livingStart: 05-05-2024 End: 05-32-8035suyuzkstfcSHOIGZGE E PERRYFacility:FTMCStart: 05-05-2024 End: 69-85-9046Qzi Drop offJENNIFER E CORRIE [facility] Start: 05-05-2024 End: 79-08-3582ferjefaynnDMTSQUVI E PERRYFacility:EU [place]uskyStart: 04-14-2024 End: 43-80-2206awmnhchvfiNtnsph TannaFacility:EU BellevueStart: 04-14-2024 End: 19-22-6953Fgnkvvt encounter procedureLauren Monserrat [facility] start: 04-01-2024 End: 35-43-7074Nyp Drop offPatrick R OVALLE [facility] Start: 04-01-2024 End: 38-73-6872vufuygcydiEhlaqbs R WATERSFacility:FTMCStart: 04-01-2024 End: 33-68-9388Gomyimz encounter procedureJENNIFER E CORRIE [facility] Start: 04-01-2024 End: 56-51-6647rlkeduubqeJO-C BERNICE E PERRYFacility:EU [place]kyStart: 04-01-2024 End: 90-23-1736Kmiymiu encounter procedureJENNIFER E CORRIE [facility] [place] Start: 02-26-2024 End: 46-14-8850WgrfllMarlo Collado NP Work Phone: noms CWM FMComment on above:Cerebrovascular accident (CVA), unspecified mechanism (CMS/HCC) (Primary Dx); Dysarthria; White matter disease; Stenosis of carotid artery, unspecified laterality; Peripheral vascular disease, unspecified (CMS/HCC); Overflow incontinence of urine; Dizziness and giddinessStart: 02-20-2024 End: 02-24-9624Nmf Drop offJENNIFER E CORRIE [facility] Start: 02-20-2024 End: 24-30-1930ynfcktmmagQBLWMHLY E PERRYFacility:FTMCStart: 02-20-2024 End: 27-10-7457Ezdaiaw encounter procedureJENNIFER E CORRIE [facility] Start: 02-20-2024 End: 65-47-5320Wmweclq encounter procedureSrudy Day MD Work Phone: [facility] Work Phone: Start: 02-20-2024 End: 37-15-0408ecjtizpnyvUaudax Fawwad MD Work Phone: [facility] Work Phone: Start: 01-29-2024 End: 67-34-8490omhmwswhvcSNLH J AICHHOLZFacility:EU [place]kyStart: 01-29-2024 End: 94-12-6892Nzzharx encounter procedureJENNIFER E CORRIE [facility] Start: 01-23-2024 End: 73-76-5863KdhyybVdyp Aichholz NP Work Phone: noms CWM FMComment on above:Chronic UTI (Primary Dx) Start: 01-21-2024 End: 00-28-1392Halbkd flowsJoe Collado TIN RECOVERY WORKER Work Phone: noms CWM FMStart: 01-21-2024 End: 55-63-2635Zhqlrr flowsJoe Collado TIN RECOVERY WORKER Work Phone: noms CWM FMStart: 01-21-2024 End: 25-60-1261Lfrtzdhi Result EncounterCindy Collado TIN RECOVERY WORKER Work Phone: noms External Department UnsolicitedStart: 01-21-2024 End: 94-63-0775tbqolruslpOFYO AICHHOLREBECCAot AvailableStart: 01-21-2024 End: 61-38-0278Wcossu outpatient visit 40 minutesCindy Collado TIN RECOVERY WORKER Work Phone: noms CWM FMComment on above:Primary hypertension (CMS/HCC) (Primary Dx); Heart failure, unspecified (CMS/HCC); Peripheral vascular disease, unspecified (CMS/HCC); Atherosclerosis of coronary artery of [place] heart, unspecified vessel or lesion type, unspecified [...] incontinence of urine; Chronic UTIStart: 12-12-2023 End: 78-56-4562eiztpvpedfCB Shaikh Leandrojustin Work Phone: [facility] Work Phone: Start: 12-12-2023 End: 43-92-6436Bwnuzmt encounter procedureMD Shaikh Rodriguescolton Work Phone: [facility]-XRay [facility] Work Phone: Start: 12-09-2023 End: 95-78-5929Mhrntr outpatient new 60 minutesChristopher Marbin DO Work Phone: [facility] ST NEUROLOGYComment on above:Ataxia (Primary Dx); History of ischemic strokeStart: 12-09-2023 End: 54-83-9083ddohpyjyjdXLTVGSXAYWD HASSETTNot AvailableStart: 12-02-2023 End: 56-41-9497Awgphn flowsheetBenjamin W Murcek DO Work Phone: noms ENT SANDUSKYStart: 12-02-2023 End: 43-94-3620Htlezg flowsheetBenjamin W Murcek DO Work Phone: noms ENT SANDUSKYStart: 12-02-2023 End: 18-83-3833Xslstf outpatient new 45 minutesBenjamin W Murcek DO Work Phone: noms ENT SANDUSKYComment on above:Oropharyngeal dysphagia (Primary Dx)Start: 12-02-2023 End: 40-18-4806BypvtcIuwk Aichholz TIN RECOVERY WORKER Work Phone: NOMS CWM FMComment on above:Anxiety and depression (CMS/HCC)Start: 11-19-2023 End: 78-39-9373SpaxboWdjh Aichholz TIN RECOVERY WORKER Work Phone: NOMS CWM FMComment on above:Urinary tract infection symptoms (Primary Dx)Start: 11-16-2023 End: 93-20-8790Mpqjfgxbq Result EncounterLisa Aichholz TIN RECOVERY WORKER Work Phone: NO[facility] External Department UnsolicitedStart: 11-16-2023 End: 83-04-2116Hdcauoglj Result EncounterLisa Aichholz TIN RECOVERY WORKER Work Phone: NOCS External Department UnsolicitedStart: 10-30-2023 End: 08-18-6692EbdeueIgpa Aichholz TIN RECOVERY WORKER Work Phone: NOM[facility] CWM FMComment on above:Acute cystitis without hematuria (Primary Dx)Urinary tract infection symptoms (Primary Dx)Start: 10-26-2023 End: 38-58-2439Osfltkyny Result EncounterLisa Césarholz TIN RECOVERY WORKER Work Phone: noms External Department UnsolicitedStart: 10-26-2023 End: 63-77-8636Dcjlvisnm Result EncounterLisa Aichholz TIN RECOVERY WORKER Work Phone: noms External Department UnsolicitedStart: 10-22-2023 End: 42-69-7264Mrbyte flowsheetLisa Aichholz TIN RECOVERY WORKER Work Phone: noms CWM FMStart: 10-22-2023 End: 03-95-3759Kakikj flowsheetLisa Aichholz TIN RECOVERY WORKER Work Phone: NOLL CWM FMStart: 10-22-2023 End: 30-63-4844Ncfvsd outpatient visit 25 minutesLisa Erickhholz TIN RECOVERY WORKER Work Phone: noms CWM FMComment on above:Oropharyngeal dysphagia (Primary Dx); Dysarthria; Cerebrovascular accident (CVA), unspecified mechanism (CMS/HCC); Atherosclerosis of coronary artery of [place] heart, unspecified vessel or lesion type, unspecified whether angina present (CMS/HCC); Primary hypertension (CMS/HCC); Stenosis of right carotid artery; Mixed hyperlipidemia (CMS/HCC); Dizziness and giddiness; Impaired mobility and activities of daily living; Migraine with aura and without status migrainosus, not intractable (CMS/HCC); Muscle spasm; Anxiety and depression (CMS/HCC); Iron deficiency; Psychophysiological insomniaStart: 10-22-2023 End: 14-15-8613pemyifujicQKGR AICHHOLZNot AvailableStart: 10-09-2023 End: 68-67-4713Rzsbyb OnlyLisa Césarholz TIN RECOVERY WORKER Work Phone: noms CWM FMComment on above:Cerebrovascular accident (CVA), unspecified mechanism (CMS/HCC) (Primary Dx); Oropharyngeal dysphagia; DysarthriaStart: 09-11-2023 End: 83-16-9530pnwgjgbnyaFNGKVH [facility] Start: 09-09-2023 End: 71-30-6405qcdaeafgybNMUCXA FAWWADNot AvailableStart: 08-26-2023 End: 00-03-7340Xpgefhlqh Result EncounterSrudy Day MD Work Phone: noms External Department UnsolicitedStart: 08-26-2023 End: 50-46-6841Wvttwtzmf Result EncounterSrudy Day MD Work Phone: noms External Department UnsolicitedStart: 08-21-2023 End: 95-21-2769nidpbcgbxeXW-C BERNICE CLEMENTEFacility:EU [place]uskyStart: 08-21-2023 End: 47-13-5316Enwzhlw encounter procedureBERNICE CLEMENTE [facility] [place] Start: 08-21-2023 End: 99-41-9847skvrenjdgxJSPYWR FAWWAMITCHot AvailableStart: 08-08-2023 End: 08-47-5796tzvvulkvdvJD Barb Work Phone: [facility] Work Phone: Start: 08-08-2023 End: 09-14-5857Cgrfcgh encounter procedureMD Barb Work Phone: [facility] Vascular Surgery Work Phone: Start: 07-15-2023 End: 85-29-6658bzurnjnfieClrmid X OrzechFacility:FTMCStart: 07-15-2023 End: 00-34-8017Asz Drop offAurora X Orzech [facility] Start: 07-15-2023 End: 85-11-8121thrcwikvbxBbfvjz X OrzechFacility:EU [place]uskyStart: 07-15-2023 End: 87-32-1720Mdmnnoi encounter procedureAurora Jag Quintero [facility] Loki Start: 07-05-2023 End: 89-39-1416Fgajbngvr encounterClairaretha Bowling CMAProMedica Physicians NeurologyComment on above:office notesStart: 07-02-2023 End: 90-97-5443fyrippmpftZRIGJEP RASHIDOhio State [facility] Hospital Ambulatory PPGStart: 07-02-2023 End: 33-93-8977Dvqkep outpatient visit 25 minutesMartin Arita MD Work Phone: [facility] Physicians NeurologyComment on above: Functional gait disorder (Primary Dx); DizzinessStart: 06-05-2023 End: 28-82-0009Pysjbosvu encounterLamelanie GregoryProMedica Physicians Neurology Start: 46-28-3339Axguxvt encounter procedureLisa Heaven FLORES Work Phone: [facility] HealthcareStart: 05-12-2023 End: 07-43-3486okhwukcyccJrebhj DymondFacility:[facility] Start: 05-12-2023 End: 55-19-1060pukcjcgftnCC-C Hannah Still Work Phone: [facility] Work Phone: Start: 05-12-2023 End: 72-85-5808Dhirenz encounter procedureNP-C Hannah Still Work Phone: [facility] Work Phone: Start: 05-11-2023 End: 29-95-0173ktkbcyzngiTT Shaikh Fawwad Work Phone: [facility] Work Phone: Start: 05-11-2023 End: 88-90-7809Vwmhzwk encounter procedureMD Shaikh Day Work Phone: [facility] Work Phone: Start: 05-09-2023 End: 11-96-4302zglvrlunkdCD Shaikh Fawwad Work Phone: [facility] Work Phone: Start: 05-09-2023 End: 96-44-0112Kgaqega encounter procedureMD Shaikh Day Work Phone: [facility] Vascular Surgery Work Phone: Start: 72-50-9518Syf-patient / Non-visitMD Shaikh Day Work Phone: [facility] Vascular Surgery Work Phone: Start: 04-12-2023 End: 14-73-5542Acylhphzeb and management of inpatientMD Shaikh Barb Work Phone: [facility]-4 Cool [facility] Work Phone: Start: 50-47-5522Kegjvpyyl encounterLinalfreda Jay Physicians NeurologyComment on above:Sooner ApptStart: 04-09-2023 End: 65-20-3339Ohexrol encounter procedureMD Shaikh Day Work Phone: [facility] Vascular Surgery Work Phone: Start: 27-06-6287Jsumuf Yulisa Day MD Work Phone: NOUT CWM IMComment on above:Anxiety and depression (CMS/HCC) (Primary Dx)NEW PATIENT REFERRALStart: 03-20-2023 End: 27-71-7734gxfuaiwhzdLHOKIIJDM A [facility] Ambulatory PPG Start: 03-20-2023 End: 52-94-5796Orcqrq outpatient new 45 minutesMosarita Haddad MD Work Phone: [facility] NeurologyComment on above:Dizzy (Primary Dx); 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 (CMS-HCC); DizzinessStart: 03-07-2023 End: 32-11-9324hgpncalhkjZATXVD FAWWADFacility:EU [place]kyStart: 03-07-2023 End: 80-56-6230Cykvcub encounter procedureAurora X Orzech [facility] Start: 70-84-5615egqkmypoptANHGReedsburg Area Medical Center Ambulatory PPGStart: 03-04-2023 End: 94-35-1313Rdxrzyaec encounterPaandrew Mendoza Physicians Neurology Comment on above:AppointmentStart: 37-27-2019wwszzuwmtcPJSLReedsburg Area Medical Center Ambulatory PPGStart: 03-01-2023 End: 12-97-5176Niatkpuqd Result EncounterGeneric External Data ProviderNOMS External Department UnsolicitedStart: 03-01-2023 End: 33-34-3610Bubvvpkpt Result EncounterGeneric External Data ProviderNOMS External Department UnsolicitedStart: 03-01-2023 End: 47-15-6229Vmcnbvntd department patient visitCornerstone Specialty Hospital Ambulatory PPGStart: 65-93-0190ruqztregkdDKWCJP FAWWADFacility:EU NorwalkStart: 05-71-6503fdytndyofzKFSDReedsburg Area Medical Center Ambulatory PPGStart: 51-21-4988Nhifirfit encounterSandra ClarkeMedica Physicians Neurology Comment on above:paperworkStart: 01-21-2023 End: 26-05-6366uvfmgkpyyzEOBairon Day Work Phone: [facility] Work Phone: Start: 01-21-2023 End: 44-64-2300Wjtrwyvair RecurringMD Shaikh Beardwwacolton Work Phone: [facility]-Physical Therapy [address] RdStart: 10-16-2022 End: 30-13-3027zssfmqrqrxXjrqxd Bailey Other [employer] Other Start: 02-65-4214Kpseqn outpatient visit 15 minutes Kori WindyFPG Urgent Care ClydeStart: 04-04-2022 End: 32-12-5512xyogjlbglyTqxxcgi Langenberg Other [facility] [employer] Other Start: 47-70-6310Vzeirv outpatient visit 15 minutes Denver MillernorahFPG Vascular SurgeryStart: 03-06-2022 End: 36-09-3932vyagwbedrfWtiao Keller Other [employer] Other Start: 63-66-1695Euwpoouco encounterEarline HarrisFPUte Urgent Care [facility]ceiving Hospitaltart: 03-02-2022 End: 89-38-7884sqwkbqijqaOG Gerry Chaudharysrini Work Phone: [facility] Work Phone: Start: 03-02-2022 End: 63-68-9734Yobbvfse Referred Gerry Shafergene Work Phone: [facility]-Lab Main [place] Work Phone: Start: 02-21-2022 End: 60-73-5652litzsoaovwAESKLOA BOESFacility:C8Dncog: 02-20-2022 End: 57-65-0418rquixkoovzHRQGPF H FAWWADFacility:G6Gsjji: 01-31-2022 End: 22-18-3580knnwrjlnupIPCIAS H FAWWADFacility:F7Xyjnv: 01-22-2022 End: 68-36-2795sryfyyrzguRKTASG H FAWWADFacility:Z8Mkzid: 01-18-2022 End: 12-69-6321vydqzjrpgeFKSJUSD TUCKERFacility:F0Totnm: 01-09-2022 End: 26-97-6045ctinvdotrqKG Shaikh Barb Work Phone: [facility] Work Phone: Start: 01-09-2022 End: 81-81-2455Phlngdgnjh RecurringMD Shaikh Day Work Phone: [facility]-Speech Therapy [address] RdStart: 01-02-2022 End: 02-05-9303pwmhgxqavgGENSHB H FAWWADFacility:S4Japvu: 12-07-2021 End: 69-19-5581heyndzchjcURWALN H FAWWADFacility:U6Tdxty: 11-27-2021 End: 82-19-7832gasyskstpzSMEDQY H FAWWADFacility:Y9Sutko: 11-26-2021 End: 09-62-1614tjvksqcnteOFWSAA H FAWWADFacility:Q9Clfga: 11-24-2021 End: 79-63-8563Rjhcxxaqb department patient [facility] Facility:[id number]: 11-21-2021 End: 06-22-8783Fcnmbsfphv and management of inpatientMD Shaikh Barb Work Phone: [facility]-3 Cool Med SurgStart: 14-07-6543Kgdugvitjv RecurringMD Shaikh Day Work Phone: [facility]-Speech Therapy [address] RdStart: 10-31-2021 End: 46-63-7153synclxdyohIzbcbwo Langenberg Other [employer] Other Start: 89-53-2502Gtccamrqc encounterDenver Juarez [facility] Referral CoordinatorStart: 10-24-2021 End: 42-61-7855izhjasswwyOCRZSP H FAWWADFacility:T6Cayog: 10-16-2021 End: 82-50-8306Tqzedtdemw and management of inpatientSHAIKH H FAWWADFacility:H1 Start: 09-27-2021 End: 79-19-1404zsoslwwkwiGtehwnt Langenberg Other [employer] Other Start: 64-51-1537Uayykx outpatient visit 15 minutes Denver LarryFPUte Vascular SurgeryStart: 09-22-2021 End: 29-88-5292tryiruwhegVtaas Das Other nort [employer] Other Start: 59-70-1208Cmjxjk outpatient visit 15 minutes Ilda DasFPG Urgent Care Henderson RoadStart: 09-20-2021 End: 14-50-7164lbirsfwjsjCscsyoj Calvey Other [employer] Other Start: 88-10-7991Mfujrv outpatient visit 10 minutes Susie ArringtonFPUte Manjarrez OrthopedicsStart: 09-02-2021 End: 79-27-3090msjetgxlejJZGCCO H FAWWADFacility:V3Rinat: 08-31-2021 End: 48-02-5951Bvxjvec encounter procedureMD Shaikh Barb Work Phone: [facility]-Ultrasound [facility] VascularStart: 82-14-4840Rkzqsnoqua RecurringMD Kam Barb Work Phone: [facility]-Speech Therapy Dumas RdStart: 37-98-9694hrjwfvobrdHFKISGD TUCKERFacility:D2Iepwg: 08-02-2021 End: 37-55-5872oczkfiwhodGmnjrlo Calvchetan Other [employer] Other Start: 08-02-2021 End: 45-38-8756Kvxkitw encounter procedureCollchristina [facility] Start: 07-29-2021 End: 34-36-3572mlibibirqzEHDXOM H FAWWADFacility:B9Dylyx: 07-12-2021 End: 21-78-7579vlrekhwiewKukpmgx Calvey Other [employer] Other Start: 48-58-3613Sbhnup outpatient visit 15 minutes Susie ArringtonFPUte Manjarrez OrthopedicsStart: 07-12-2021 End: 93-99-5402Uilycag encounter procedureMD Shaikh Barb Work Phone: [facility]-XRay [facility] Start: 06-15-2021 End: 63-33-1710Nyuxshbgki RecurringMD Shaikh Barb Work Phone: [facility]-Chipper Operator [address]ab[address] RdStart: 05-31-2021 End: 78-66-5645suroccryikXkskqhf Cal[place] Other [employer] Other Start: 81-51-3517Qaoggw follow up visit related to original pxColleen CalveyFPG [facility] OrthopedicsStart: 05-08-2021 End: 58-59-6782ngumoufrtwCATYLP H FAWWADFacility:Z2Toxlo: 05-03-2021 End: 15-75-5403etciugqjbuQqlkupa Calvey Other [employer] Other Start: 83-69-3347Gatlja follow up visit related to original pxColleen CalveyFPG [facility] OrthopedicsStart: 03-30-2021 End: 07-94-5720geeoxnksxrTBFXBG H FAWWADFacility:W4Lzhsg: 03-02-2021 End: 61-49-1442mvnyugalvmCxsvhre Langenberg Other [employer] Other Start: 56-68-9982Uijzov outpatient visit 15 minutes [place] Hill Vascular SurgeryStart: 73-88-9058Oicnmf outpatient visit 25 minutesMattbarbara Hill Vascular SurgeryStart: 16-99-6476Cssplj outpatient visit 15 minutesMatthew Liz Vascular Surgery Procedures DateProcedureProcedure DetailPerforming ClinicianStart: 90-22-0816Kjzrcgfrf of substance into bladder wallAurora Ingrid Start: 93-22-5270TW ECHO DOPPLER COMPLETEGeneric External Data ProviderStart: 62-29-6524DJ KARSTEN PERF SPECT REST STRGeneric External Data ProviderStart: 58-57-7581ZRA HEAD/BRAIN WO/W CONTRSarah Mcleod TIN RECOVERY WORKER Work Phone: Start: 64-39-4183NO CERVICAL SPINE WO/W CONSarah Mcleod TIN RECOVERY WORKER Work Phone: Start: 68-48-3542BNB CREATININESarah Mcleod TIN RECOVERY WORKER Work Phone: Start: 90-03-5686IBV CBC WITH AUTO DIFFLisa Aichholz TIN RECOVERY WORKER Work Phone: Start: 69-24-2529Wapzx dip stick/tablet rgnt non-auto w/o micrscpLisa Césarholz TIN RECOVERY WORKER Work Phone: Start: 76-76-3554DWMTTVJ TRACT INFECTION (HTRX)Cindy Dakotaz TIN RECOVERY WORKER Work Phone: Start: 54-98-8899ISG UA (CLEAN/CATCH) MICROSCOPIC IF INDICATELisa Aichholz TIN RECOVERY WORKER Work Phone: Start: 40-40-7206YXO CBC WITH AUTO DIFFLisa Aichholz TIN RECOVERY WORKER Work Phone: Start: 43-63-4712NP videography Hypopharynx and Esophagus Views for swallowing function W speech and W barium contrast Dorian Day MD Work Phone: Start: 37-95-1021Oukpcxa ultrasonography of bilateral carotid arteriesMD Shaikh Day Work Phone: Start: 36-67-0892Fzsis cultureMD Shaikh Day Work Phone: Start: 12-43-9911Gjlfrge ultrasonography of bilateral carotid arteriesMD Shaikh Reeveswad Work Phone: Start: 93-41-3241Crzkw depression screening assessment Марина Mary Ellentart: 97-97-7816Efqkzrp echo study ProcedureGeneric External Data ProviderStart: 54-77-2666QH of head without contrastMD Shaikh Day Work Phone: Start: 03-34-2003Iwchw chest X-rayMD Shaikh Day Work Phone: Start: 92-06-4201Ziczpzcsmb of Upper Intestinal Tract, Via Natural or Artificial Opening EndoscopicMELINDA TUCKERStart: 10-16-2021 Transfusion of Nonautologous Red Blood Cells into Peripheral Vein, Percutaneous ApproachMELINDA [facility] BOSWELL MEDICAL CENTERERStart: 08-38-5520Bsjstzn ultrasonography of bilateral carotid arteriesMD Shaikh Barb Work Phone: Start: 28-80-2363Wipsg X-ray of right handMD Shaikh Barb Work Phone: Start: 11-30-4805Cujaz X-ray of right handMD Shaikh Barb Work Phone: Start: 05-12-2021 End: 13-41-9000KtzqpsrfiqfMxtq [facility]. Clair Hospitalbharati TIN RECOVERY WORKER Work Phone: Arthroplasty of kneeAurora Orzech Blood culture for bacteria, including anaerobic screen MD Shaikh Day Work Phone: Breast surgery (qualifier value)Carmen Orzech Bypass of stomachAurora Orzech HysterectomyAurora Orzech [phone]-MgF-2, Influenza & RSV (PCR)MD Shaikh Day Work Phone: Urine cultureMD Shaikh Barb Work Phone: Plan of Treatment DateCare ActivityDetailAuthorStart: 39-57-9958Tmwydxzdy for malignant neoplasm of colonNOMS HealthcareStart: 93-52-0344IKiB,Tdap and Td Vaccines (2 - Tdap) DTaP,Tdap and Td Vaccines (2 - Tdap)[facility] SystemStart: 02-01-2025 ambulatoryAmbulatoryFacility:SIRI GallegosyStart: 55-81-3239Jkcuchvnq vaccination Influenza Vaccine (#1)NOMS HealthcareComment on above:Postponed from 10/13/2023 (Patient Does Not Have Time)Start: 11-12-2024 End: 08-94-0425Fuxqkpp encounter czbkqnlor44/02/2025 9:40 AM EDT Office Visit [facility] [address] [place] [phone] Cindy Collado, SANDRA [address] [place] [phone] [facility] FMStart: 76-86-7602Oznixjcgy vaccinationInfluenza Vaccine (#1)[facility] HealthcareStart: 08-13-2024 End: 61-25-8111Gyitycg encounter fnggbefjn62/03/2025 2:40 PM EDT Office Visit JAIME MANJARREZ [address] [place] [phone] Jameson Mcleod NP [address] [place] [address] JAIME SHILPAYStart: 08-11-2024 End: 24-56-1964Hihmltk encounter wglzduuvi44/01/2025 9:00 AM EDT Office Visit [facility] [address] [place] [phone] Cindy Collado, TIN RECOVERY WORKER [address] [place] [phone] [facility] FMStart: 07-15-2024 End: 46-69-3066Nyqsdgv encounter dudzecbay31/04/2025 10:20 AM EDT [facility] [place] [phone] Jameson Mcleod, SANDRA [address] [place] [address] JAIME GALLEGOSYStart: 94-89-9243Gwrri BMI ScreeningAdult BMI ScreeningDuke Healthtart: 30-04-8647Mfnpwbh ScreeningTobacco ScreeningKettering Health [facility] Start: 06-30-2024 End: 29-58-0443Ewkeyhk encounter hdvcufcmu99/20/2025 9:00 AM EDT Office [facility] [place] [place] [phone] aAMISHA GALLEGOSYStart: 06-15-2024 End: 78-09-7592Hhlvpgi encounter bkhubeenj11/05/2025 10:30 AM EDT Office Visit [facility]IME [place]ONJERMAINE [place] [address] [place] [phone] Chaim Hare, PhD [address] [place] [address] JAIME GALLEGOSYStart: 06-07-2024 End: 84-53-6419Jpdmnowkw (Vitamin B12) [Mass/volume] in Serum or PlasmaVitamin B12 Lab Routine Ataxia Expressive aphasia Memory difficulty Expected: 06/07/2024 (Approximate), Expires: [facility]/2025[facility] Work Phone: comment on above:Expected: 06/07/2024 (Approximate), Expires: 06/01/2025Start: 06-07-2024 End: 33-29-5914MA Brain WO and W contrast IVMR brain w and wo contrast routine Imaging Routine Ataxia Gait instability Expressive aphasia Memory difficulty History of ischemic stroke Expected: 06/07/2024 (Approximate), Expires: 06/07/2025[facility]:Expected: 06/07/2024 (Approximate), Expires: 06/07/2025Start: 06-07-2024 End: 53-15-4037IT Cervical spine WO and W contrast IVMR cervical spine w and wo contrast Imaging Routine Ataxia Gait instability Expected: 06/07/2024 (Ap proximate), Expires: 06/07/2025NOUT HealthcareComment on above:Expected: 06/07/2024 (Approximate), Expires: 06/07/2025Start: 06-07-2024 End: 96-79-7924Uwmkgdhnwvr [Units/volume] in Serum or PlasmaTSH Lab Routine Ataxia Expressive aphasia Memory difficulty Expected: 06/07/2024 (Approximate), Expires: 06/07/2025NOMS HealthcareComment on above:Expected: 06/07/2024 (Approximate), Expires: 06/07/2025Start: 2024 End: 23-18-7027Hydeaja encounter qheblypbd40/23/2025 10:30 AM EDT Office Visit [facility] [address] [place] [address] Cindy Collado, TIN RECOVERY WORKER [address] [place] [place] [address] ArrivedCOLORADO RIVER [facility] FMComment on above:ArrivedStart: 06-02-2024 Medicare Annual Wellness (AWV)Medicare Annual Wellness (AWV)[facility] Start: 06-01-2024 End: 18-51-2358Canmcbj encounter procedureANA BELLEVUEComment on above:Arrived Start: 05-12-2024 End: 29-29-1154Xrsbb metabolic 1998 panel - Serum or PlasmaBasic metabolic panel Lab Routine Primary hypertension (CMS/HCC) Expected: 05/12/2024 (Approximate), Expires: 05/12/2025[facility] HealthcareComment on above:Expected: 05/12/2024 (Approximate), Expires: 05/12/2025Start: 05-12-2024 End: 62-25-0854HTU W Auto Differential panel - BloodCBC and differential Lab Routine Cerebrovascular accident (CVA), unspecified mechanism (CMS/HCC) Exp ected: 05/12/2024 (Approximate), Expires: 05/12/2025[facility] Work Phone: Comment on above:Expected: 05/12/2024 (Approximate), Expires: 05/12/2025Start: 83-14-0244[place] BMI ScreeningAdult BMI Screening [facility] SystemStart: 23-22-4709Tjmuqzxisg ScreeningDepression Screening [facility] SystemStart: 85-62-2679Piqcqod ScreeningTobacco Screening [facility] [facility] SystemStart: 15-20-4430Vrkfa brachial pressure indexSelect Medical [facility] Clinic Rehabilitation Hospital, Beachwoodtart: 02-03-2024 End: 59-90-7443Knmapvu encounter jjkdsbifx30/23/2024 9:20 AM EST Office Visit [facility] [address] [place] [address] Jameson Mcleod NP [address] [place] [address], [place] [address] [facility]YStart: 01-21-2024 End: 18-82-8479Dpbdlves identified in Urine by CultureUrine culture (clean catch) Microbiology Routine UTI symptoms Expected: 01/21/2024 (Approximate), Ex giovanny: 01/20/2025[facility] Work Phone: Comment on above:Expected: 01/21/2024 (Approximate), Expires: 01/20/2025Start: 01-21-2024 End: 06-44-7590RFPRCSW TRACT INFECTION (HTRX)URINARY TRACT INFECTION (HTRX) Lab Routine UTI symptoms Expected: 01/21/2024 (Approximate), Expires: 01/20/2025[facility] HealthcareComment on above:Expected: 01/21/2024 (Approximate), Expires: 01/20/2025Start: 01-21-2024 End: 91-21-1710Fqjjuxh encounter mubtnbkfe48/10/2024 9:40 AM EST Office Visit [facility] [address] [place] [address] Cindy Collado NP [address] [place] [phone] OLGA YEPEZ FMStart: 01-14-2024 End: 85-09-7981Agqiodq encounter gxtrvyjfl99/03/2024 11:00 AM EST Office Visit [facility] [address] [place] [phone] Martin Arita MD [address] [place] [address], [address], [address], [address] [place] [phone] (Work) [facility] Start: 12-24-2023 End: 41-97-3926Mcumdsn encounter hzmmwahpj90/12/2024 9:15 AM EST Office Visit [facility] [address] [place] [phone] Aime Clark, DO [address] [place] [place] [address] [facility] GALLEGOSYStart: 12-09-2023 End: 36-49-7619Rjlec daphhbvytvl16/28/2024 Abstract [facility] [address] [place] [phone] Nakul Zazueta, [address] [place] [address] [facility]YStart: 12-09-2023 End: 80-44-4973Lcchiwg encounter eqzpydxmm13/28/2024 9:00 AM EDT Office Visit [facility] [address] [phone] Nakul Zazueta, DO [address] [place] [address] [facility] NEUROLOGYStart: 12-02-2023 End: 26-16-7491CT Esophagus Views W barium contrast POFL esophagus barium swallow Imaging Routine Oropharyngeal dysphagia Expected: 12/02/2023 (Approximat e), Expires: 12/01/2024[facility] HealthcareComment on above:Expected: 12/02/2023 (Approximate), Expires: 12/01/2024Start: 12-02-2023 End: 26-31-2788JD Pharynx and Cervical esophagus Views W barium contrast POFL esophagus pharynx Imaging Routine Oropharyngeal dysphagia Expected: 12/02/2023 (Approximate), Expires: 12/01/2024[facility] Work Phone: comment on above:Expected: 12/02/2023 (Approximate), Expires: 12/01/2024Start: 12-02-2023 End: 58-91-1736Omkerxh encounter procedureNOMS ENT SANDUSKYComment on above: Oropharyngeal dysphagiaStart: 10-30-2023 End: 27-61-8379Hijtwrxe identified in Urine by CultureUrine culture (clean catch) Microbiology Routine Urinary tract infection symptoms Expected: 10/30/19 24 (Approximate), Expires: 10/29/2024[facility] Work Phone: Comment on above:Expected: 10/30/2023 (Approximate), Expires: 10/29/2024Start: 10-30-2023 End: 90-78-0326Dekvmuvruy complete panel - UrineUrinalysis with reflex microscopic (clean catch) Lab Routine Urinary tract infection symptoms Expected: 10/30/2023 (Approximate), Expires: 10/29/2024[facility] HealthcareComment on above: Expected: 10/30/2023 (Approximate), Expires: 10/29/2024Start: 10-22-2023 End: 34-51-7113Tdwzhkf, urine, randomAlbumin, urine, random Lab Routine Primary hypertension (CMS/HCC) Expected: 10/22/2023 (Approximate), Expires: 10/21/2024 [facility] HealthcareComment on above:Expected: 10/22/2023 (Approximate), Expires: 10/21/2024Start: 10-22-2023 End: 12-41-0597ECR W Auto Differential panel - BloodCBC and differential Lab Routine Cerebrovascular accident (CVA), unspecified mechanism (CMS/HCC) Ath erosclerosis of coronary artery of [place] heart, unspecified vessel or lesion type, unspecified whether angina present (CMS/HCC) Expected: 10/22/2023 (Approximate), Expires: 10/21/2024 Healthcare Work Phone: Comment on above:Expected: 10/22/2023 (Approximate), Expires: 10/21/2024Start: 10-22-2023 End: 78-79-7684Zjvmjcxaiowmx metabolic 2000 panel - Serum or PlasmaComprehensive metabolic panel Lab Routine Primary hypertension (CMS/HCC) Mixed hyperlipidemia (CMS/HCC) Expected: 10/22/2023 (Approximate), Expires: 10/21/2024[facility] HealthcareComment on above:Expected: 10/22/2023 (Approximate), Expires: 10/21/2024Start: 10-22-2023 End: 24-68-3490Zekws 1996 panel - Serum or PlasmaLipid panel Lab Routine Cerebrovascular accident (CVA), unspecified mechanism (CMS/HCC) Atherosclerosis of coronary artery of [place] heart, unspecified vessel or lesion type, unspecified whether angina present (CMS/HCC) Mixed hyperlipidemia (CMS/HCC) Expected: 10/22/2023 (Approximate), Expires: 10/21/2024[facility] HealthcareComment on above:Expected: 10/22/2023 (Approximate), Expires: 10/21/2024Start: 10-22-2023 End: 28-57-7504Hfkszyefum complete panel - UrineUrinalysis with reflex microscopic (clean catch) Lab Routine Primary hypertension (CMS/HCC) Expected: 10/22/2023 (Approximate), Expires: 10/21/2024[facility] HealthcareComment on above: Expected: 10/22/2023 (Approximate), Expires: 10/21/2024Start: 10-22-2023 End: 19-37-5350Eapckqm encounter procedureNOMS CWM FMComment on above:Arrived Start: 58-67-0825Mfogexjnx vaccinationNOMS HealthcareStart: 01-94-2469Pwecuun referralMercy Health Tiffin Hospital Work Phone: Start: 69-27-8629Ohgnrrq ultrasonography of bilateral carotid arteriesUS carotid doppler BIFirelands Regional Medical CenterStart: 07-02-2023 End: 74-49-9020Dllzftb encounter jdftrttze59/21/2024 9:00 AM EDT Office Visit [facility] [place] [phone] Martin Arita MD [address] [place] [address], [address], [address], [address] [place] [address] [facility]rologyStart: 2023 End: 85-09-5918Ycgpnts encounter uhcrmggoe75/22/2024 6:30 PM EDT Office Visit [facility] [address] [place] [address] Shaikh Day MD [address] [place] [phone] [facility] IMStart: 29-25-7333Bpxedrjz identified in Urine by CultureSelect Medical [facility] Clinic Rehabilitation Hospital, Beachwoodtart: 24-75-7638XavpcdrhuSelect Medical [facility] Clinic Rehabilitation Hospital, Beachwoodtart: 29-03-2479Xgbjgsui admissionSelect Medical [facility] Clinic Rehabilitation Hospital, Beachwoodtart: 71-77-7039Bnbloukg Embolic Filtration, Extracorporeal Flow Reversal Circuit from Right Common Carotid Artery,Percutaneous Approach, [employer] 6Cerebral Embolic Filtration, Extracorporeal Flow Reversal Circuit from Right Common Carotid Artery,Percutaneous Approach, [employer] 6 [facility]woodtart: 96-71-1696Ipbpwzke of Right Internal Carotid Artery with Intraluminal Device, Open ApproachDilation of Right Internal Carotid Artery with Intraluminal Device, Open ApproachSelect Medical Cleveland Clinic Rehabilitation Hospital, Beachwoodtart: 03-12-2023 End: 53-83-0036Kysnmpp encounter ehyvspdnq18/30/2024 10:00 AM EST Office Visit [facility] [address] [place] [phone] Alan Elmore MD [address] [place] [address], [address], [address], [address] [place], [place] [phone] [facility] NeurologyStart: 27-49-4027GDWQG-19 Vaccine ( season)COVID-19 Vaccine ( season)[facility] SystemStart: 26-03-0913Whplkhvz identified in Urine by CultureUrine CultureSelect Medical [facility] Clinic Rehabilitation Hospital, Beachwoodtart: 11-22-2021 Comprehensive metabolic 2000 panel - Serum or PlasmaSelect Medical [facility] Clinic Rehabilitation Hospital, Beachwoodtart: 06-75-9812Rfpthoswz measurementCleveland Clinic Medina Hospital Start: 11-22-2021 End: 08-32-6058HxlhcnqaiSelect Medical [facility] Clinic Rehabilitation Hospital, Beachwoodtart: 57-21-6264Wuwsqau referral to dietitianSelect Medical [facility] Clinic Rehabilitation Hospital, Beachwoodtart: 44-80-0485Krjsduqe to cardiologistSelect Medical [facility] Clinic Rehabilitation Hospital, Beachwoodtart: 22-76-6526Owymwdcz admissionSelect Medical [facility] Clinic [facility] Hospital, Beachwoodtart: 95-82-7117Dbjrcsno therapy procedureSelect Medical [facility] Clinic Rehabilitation Hospital, Beachwoodtart: 35-50-3508Wipyrdts to occupational therapistSelect Medical [facility] Clinic Rehabilitation Hospital, Beachwoodtart: 11-21-2021 [facility], Beachwoodtart: 88-94-5851Xqhbrcq ultrasonography of bilateral carotid arteriesUS carotid doppler [facility] Start: 50-74-8323YP.doppler Carotid arteries - bilateralMercy Health Tiffin Hospital Work Phone: Start: 27-07-1565Xmek Risk ScreeningFall Risk ScreeningKettering Health Behavioral Medical Center SystemStart: 95-82-4358Fpdyzgmobzjyzc of varicella zoster vaccineZoster (Shingles) Vaccine (1 of 2)[facility] SystemStart: 73-08-6776Uizxknfob for malignant neoplasm of breastMammogramNOUT Healthcare Start: 77-19-7178Hybrc BMI Follow Up PlanAdult BMI Follow Up PlanKettering Health Behavioral Medical Center SystemStart: 30-61-6049Fpuxg BMI ScreeningAdult BMI ScreeningKettering Health Behavioral Medical Center SystemStart: 90-21-0394Gusfwqlebs ScreeningDepression ScreeningKettering Health Behavioral Medical Center SystemStart: 44-69-2648Pnikoqf ScreeningTobacco ScreeningKettering Health Behavioral Medical Center SystemStart: 04-23-1949Medicare Annual Wellness (AWV)Medicare Annual Wellness (AWV)[facility] HealthcareStart: 04-23-1949Medicare Annual Wellness VisitMedicare Annual Wellness VisitDuke Healthtart: 88-77-8238Gmtuputon for malignant neoplasm of colonNOMS HealthcareAnkle brachial pressure indexCleveland Clinic Medina HospitalBacteria identified in Blood by CultureCleveland Clinic Medina HospitalBacteria identified in Urine by CultureCleveland Clinic Medina HospitalBlood culture for bacteria, including anaerobic screenBlood CultureCleveland Clinic Medina HospitalPatient EducationKettering Health [facility]tr Work Phone: Patient referralKettering Health Hamilton Ctr Work Phone: Urine cultureUrine [facility] Memorial HospitalUS.doppler Carotid arteries - [facility] US.doppler Carotid arteries - [facility] US.doppler Carotid arteries - [facility] Immunizations Immunization DateImmunizationNotesCare NdhofrqnBqavayhv57-07-2963mvqhkdshc virus vaccine, unspecified formulationAurora Orzech [facility] Hospitaly09-28-2024Seasonal trivalent influenza vaccine, adjuvanted, preservative freeCindy Collado TIN RECOVERY WORKER Work Phone: [facility] HospitalCktfnubtqu92-51-4568clfpdedoh virus vaccine, unspecified formulationBenjamin Murelvirak DO Work Phone: [facility] Gomajabo69-27-6473hefusjqpo virus vaccine, unspecified formulationAurora Orzech [facility] Hospitaly10-14-2023Influenza, Seasonal, Quadrivalent, AdjuvantedSrudy Day MD Work Phone: [facility] HospitalFvuxnsoykg07-50-0987Xovwwifrqwcf Conjugate PCV 20 Shaikh Barb VIDES Work Phone: [facility] HospitalGqjaprbbnt05-41-3358TCF vaccine preF3, recombinantAurora Orzech [facility] [place] 612880-14-2023RSV, recombinant, protein subunit RSVpreF, adjuvant reconstitu, 120mcg/0.5mL, PF (Arexvy)Shaikh Barb VIDES Work Phone: [facility] HospitalYdmxadtklw82-31-2692yhkqkcuib virus vaccine, unspecified formulationAurora Orzech [facility] [place] 612882-10-2022Influenza, Seasonal, Quadrivalent, AdjuvantLoren Day MD Work Phone: [facility] HospitalTqnvhceoqd64-25-1263unzqvqjzm virus vaccine, unspecified formulationAurora Orzech [facility] [place] 612880-16-2021Influenza, Seasonal, Quadrivalent, AdjuvantedSrudy Day MD Work Phone: [facility] HospitalQlmydikwoi65-23-8541ojetdqfxod, tetanus toxoids and pertussis vaccineSrudy Day MD Work Phone: [facility] HospitalWgfqmwtqzl29-93-2348MVJHM-32 Ad26.COV2.S (Clarence)MD Shaikh Day Work Phone: [facility]10-28-2020influenza virus vaccine, unspecified formulationAurora Orzech [facility] [place] 612880-28-2020Influenza, High-dose Seasonal, Quadrivalent, Preservative Free Shaikh Barb VIDES Work Phone: [facility] HospitalEzcrjvoaje98-51-7103bvqscclen virus vaccine, unspecified formulationAurora Orzech [facility] [place] 612881-11-2019influenza, high dose seasonal, preservative-freeShaikh Barb VIDES Work Phone: noMercy McCune-Brooks HospitalKjriuxbozh39-98-6116mvgom otezdjdzw-O2K5-71, preservative-free, injectableShaikh Barb VIDES Work Phone: [facility] HospitalBfcbxxecow83-24-8483liwzgtzbx virus vaccine, unspecified formulationJENNIFER CORRIE [facility]02-12-2002influenza, seasonal, injectableLisa Heaven FLORES Work Phone: noMercy McCune-Brooks HospitalJvpnkvowgb49-96-7766Qm(adult) unspecified formulationJENNIFER CORRIE [facility]02-12-2002tetanus and diphtheria toxoids, not adsorbed, for adult use Cindy Heaven TIN RECOVERY WORKER Work Phone: [facility] Payers DatePayer CategoryPayerPolicy [id number] (Managed Care)[employer] [id number] 2019Medicare [id number] 2.16.840.6.509984.20742374-50-5029Ulpb-pay [id number] 2.16.840.1.959622.3.579.2.27640-58-3155Connocl5459672 2.16.840.1.605598.3.579.2.38013-78-3122Crojxbx9064175 2.16.840.1.686092.3.579.2.25860-81-4388Vfcearw1518469 2.16.840.1.737574.3.579.2.29585-64-5640Lkpxocg7914468 2.16.840.1.511800.3.579.2.32495-08-0827Sqpmdyo8685081 2.16.840.1.467064.3.579.2.36024-99-0735Anhvclq1554601 2.16.840.1.731134.3.579.2.15076-10-1546Hsdstvu5251415 2.16.840.1.307273.3.579.2.67355-29-4108Lrujrpu1293373 2.16.840.1.288260.3.579.2.99839-88-2648Gcjrher8463623 2.16.840.1.403744.3.579.2.23564-00-5635Hviygwx0462846 2.16.840.1.620610.3.579.2.60982-01-8093Onubedn0567268 2.16.840.1.062545.3.579.2.43808-59-5120Uvpwwtl8547094 2.16.840.1.269409.3.579.2.73629-29-8839Duvvrby4755163 2.16.840.1.173556.3.579.2.83001-44-1972Ofcohni4200836 2.16840.1.191726.3.579.2.75827-40-1059Urxtzgp1864083 2.16840.1.671816.3.579.2.00970-58-8299Dgdmmuu7790946 2.16840.1.338576.3.579.2.86797-61-9764Yjiyqbk5143943 2.16840.1.330065.3.579.2.02683-03-5123Quwbkqj1201209 2.840.1.340099.3.579.2.77656-64-4069Zwbnksx32075260 2.840.1.051671.3.579.2.177511-80-5264Hbhfxcs81895975 2.840.1.822283.3.579.2.121582-72-8757Omnbiev20394637 2.840.1.392468.3.579.2.804972-82-1010Iploryi39578710 2.840.1.552990.3.579.2.587770-49-7394Lzevmix34652138 2.840.1.665691.3.579.2.703415-33-9389Tyrvpvr01714050 2.840.1.303153.3.579.2.645046-46-3931Ggudkar72036889 2.840.1.107198.3.579.2.039061-39-0598Jfimdlf16875615 2.840.1.989406.3.579.2.064377-88-7655Doqjrxo70293247 2.840.1.139557.3.579.2.155031-45-6641Dacttox55154745 2.16840.1.577568.3.579.2.559978-65-1800Zevrxsj94347699 2.16840.1.958900.3.579.2.692613-42-9507Vqnlvim84859089 2.16840.1.455605.3.579.2.236701-29-7997Qxkajmu91060095 2.16840.1.020233.3.579.2.877515-56-7552Lsyfhkx8562225 2.840.1.067609.3.579.2.513049-64-8948Qrbtrqy09095796 2.16840.1.817898.3.579.2.76253-15-3753Fwgoupf90511232 2.840.1.088083.3.579.2.19176-65-8598Gwkdhkk51859051 2.840.1.845378.3.579.2.92210-46-8493Ozqrdbl11784455 2.840.1.176600.3.579.2.95584-09-9360Ebgjlme05660336 2.840.1.179540.3.579.2.06097-50-5133Bdviwkt36300113 2.840.1.434495.3.579.2.15375-29-3519Gemoker42985602 2.16840.1.001300.3.579.2.74426-21-9750Ncdubkc54910348 2.16840.1.509698.3.579.2.12918-06-9473Wsomxlr67418197 2.16840.1.090041.3.579.2.97994-56-7800Yjtgnzd68665704 2.16.840.1.962003.3.579.2.72156-25-0534Ltaexxk27205148 2.16.840.1.964672.3.579.2.61805-41-9120Bwigncq99344598 2.16.840.1.180986.3.579.2.92473-97-0188Xjmzzor94486277 2.16.840.1.211106.3.579.2.06754-86-9272Duqbglm06211190 2.16840.1.239396.3.579.2.79276-72-9985Hmsbpjv72532630 2.16840.1.434925.3.579.2.90452-70-7399Pwmzdoi43792172 2.16840.1.812157.3.579.2.72010-52-4732Gdbulhw66575987 2.16840.1.636289.3.579.2.73038-49-2068Mgedpnf04091494 2.16840.1.335383.3.579.2.75717-00-8910Bnnytss22482626 2.16840.1.671100.3.579.2.462204-03-3531Exovajv4105053 2.16840.1.870667.3.579.2.752640-62-2805Ckezlaz6628909 2.16840.1.200917.3.579.2.424122-82-2455Lpxyubl4769156 2.16840.1.465307.3.579.2.390257-49-8284Ywpzmby9917272 2.16840.1.921363.3.579.2.560734-37-0664Dvuitve0283201 2.16840.1.103689.3.579.2.418741-41-1848Twjwjad8024309 2.16840.1.453038.3.579.2.820378-72-8346Qdznnsd5016545 2.16840.1.842254.3.579.2.147573-83-7322Phxzkoh7942504 2.16840.1.201110.3.579.2.300261-76-9253Dditsho5601371 2.16840.1.448374.3.579.2.778020-51-0595Gfbbmsx9187324 2.840.1.371533.3.579.2.338401-62-8966Piqfihi1418926 2.840.1.665050.3.579.2.097951-26-4079Yhtgrrf29781941 2.840.1.861898.3.579.2.01708-49-5197Ebsjfts73272877 2.16840.1.264453.3.579.2.26293-79-3798Izvkojs19231788 2.840.1.290817.3.579.2.21360-38-0343Ramttqv72961953 2.840.1.885964.3.579.2.66181-96-1583Gimolhh54181233 2.840.1.534066.3.579.2.77628-78-8229Wkdsrej50680882 2.16840.1.518131.3.579.2.59141-80-5059Pfzbytd40269323 2.16840.1.376681.3.579.2.48974-45-2473Inxldql98513611 2.16.840.1.149803.3.579.2.77119-25-4368Bxzaegj30816818 2.16.840.1.821086.3.579.2.60917-11-7628Mwdidjk15720212 2.16.840.1.915915.3.579.2.11437-76-8545Xubklsi86777455 2.16.840.1.326144.3.5[id number] am1n8ccn-09q5-0559-755b-1q3prkl501d1Tjpkpfj20536009 2.16.840.1.431661.3.579.2.181Cbbzyzf16722077 2.16.840.1.394599.3.579.2.531 Social History DateTypeDetailFacilityStart: 03-06-2023 End: 80-54-2491Tpd [facility] Hospitalt[facility]: 03-31-2021 End: 08-88-3887Iaowjac smoking status NHISEx-smoker (finding)[facility]tart: 27-39-0382Luz Assigned At [facility] Hospitaltart: 03-07-2023 End: 52-12-3838Abybxzp smoking statusNever smoked tobacco (finding)[facility] SanduskyHistory of tobacco useCurrent smokerNOMS HealthcareHistory of tobacco useCigarette SmokerNOMS HealthcareStart: 02-20-2023 End: 92-89-7296Zdecuzg use and exposureSmokeless tobacco non-userNOMS Healthcare Start: 02-25-2023 End: 65-46-9824Muqblcp intakeLifetime non-drinker (finding)[facility] HealthcareStart: 03-06-2023 End: 87-50-1594Ymejurx of Social functionNOUT HealthcareStart: 95-82-4755Szd Assigned At BirthNot on fileNOUT HealthcareStart: 01-01-3526Kdppybi smoking statusNeverExecutive Urology of [facility] SanduskyHistory of tobacco usePassive smokerNOMS HealthcareDo you belong to any clubs or organizations such as tenriism groups, unions, fraternal or athletic groups, or [...] before (I/we) got money to buy more.Never trueNOUT HealthcareStart: 02-20-2024 End: 12-94-9737KocLrigxy (finding)[facility] HospitalDo you feel stress - tense, restless, nervous, or anxious, or unable to sleep at night because yourmind is troubled all the time - these days [OSQ]Not at allNOUT HealthcareStart: 08-25-2018 End: 62-31-9569Kcprgdsyx beverage intakeCurrent non-drinker of alcohol (finding) [facility] [employer] Mobile SystemSexual OrientationVan Wert County Hospital How often do you need to have someone help you when you read instructions, pamphlets, or other written material from your doctor or pharmacy [SILS]SometimesNOMS Healthcare Medical Equipment Procedure CodeEquipment CodeEquipment Original TextEquipment IdentifierDates Transcarotid artery revascularization (TCAR)Bare-metal carotid artery stent ()[id number] FDAStart: 28-88-5281BYZF, fracture, wristOrthopaedic fixation plate, non-bioabsorbable, sterile()[id number] FDAStart: 51-49-8875ABBF, fracture, wristOrthopaedic bone screw, non- bioabsorbable, non-sterile()[id number] FDAStart: 67-17-3939SGDT, fracture, wristOrthopaedic bone screw, non-bioabsorbable, non-sterile()[id number] FDAStart: 66-86-7667SVHP, fracture, wristOrthopaedic bone screw, non- bioabsorbable, non-sterile()[id number] FDAStart: 29-93-3581HKXR, fracture, wristOrthopaedic bone screw, non-bioabsorbable, non-sterile()[id number] FDAStart: 23-34-9991Bjizeswxvepskg, carotidCardiovascular patch, animal-derived ()[id number] FDAStart: 43-56-8000Mak Crd Rvl Linq Rpl [id number] - [id number] - [id number]_dpqWdlgo: 04-08-2018 Goals DatePatient GoalDesired Activity/StatePersonal health goalComment on above: Evaluation of progress towards goal: return home with self care and family supportPersonal health goalComment on above: Evaluation of progress towards goal: Return home with self care and family support and resume outpatient therapy. Functional Status EkguOyncsdaqasUuvqkuHnztezok27-75-1285Igowuvnxsl StatusN/AExecutive Urology [facility] Hospital [facility] Columbusue02-19-2025Functional StatusN/AExec[facility] [place] 130772-16-2024Total score [AUDIT-C]0 01/27/2024 9:54 AM Milton Haines MANOMS Ijuqsboptv23-94-0488Sopzciz Health Questionnaire 2 item (PHQ-2) [Reported][facility] HospitalWvttedmqdn66-30-0961Ecyojcvgmb StatusN/AExec[facility]2024 Functional StatusN/A[facility] 56-59-8467Dcewnpclxg statusPatient at BaselineOhio Valley Surgical Hospital Work Phone: [phone]iyuj StatusN/AExecutive [facility]rology of [facility]01-24-2024Patient Health Questionnaire 2 item (PHQ-2) [Reported][facility] HospitalUiayuhwnqf43-99-2571Kvtwybhnmu statusPatient at [facility] Work Phone: [phone] statusPatient Not at Baseline [facility] Work Phone: [facility] Mental Status QsegGhipzcyectBtflwwCchxxlfa24-19-1902Hnvkxbmde functionCognitive Status [facility] Work Phone: [phone] functionCognitive Status [facility] Work Phone: [phone] functionCognitive Status Patient Not at [facility] Work Phone: Clinical Notes 11-10-2020 to 11-26-2024 Note Date & [id number] Evaluation note* Diagnosis Onset Date Resolution Status Admit Date Dizziness and giddiness acuteOctober 2024 9:05amEpisode of recurrent major depressive disorder acuteOctober 2024 9:05amEssential hypertensionacuteOctober 2024 9:05amGAD (generalized anxiety disorder)acuteOctober 2024 9:05amMigraine with aura and without status migrainosus, not intractableacuteOctober 2024 9:05amAtaxiachronicOctober 2024 11:35amGait instabilitychronicOctober 2024 11:35amIschemic strokechronHenry [facility]ober 20[facility] 11:35amAphasiadeleted December 03, 2024 11:35am [facility] Work Phone: [phone] 708-736308-28-2025 Hospital Discharge instructions Patient Education 10/08/2024 09:45:11 [...] stimulation). ?For women, using a center medical director to prevent urine leaks. This [...] right after experiencing incontinence. General instructions Take jzli-yot-kqbbhkh and prescription medicines only as told by [...] important. Where to find more information [employer] [place] [employer] and [employer]estive [employer] Kidney Diseases: www.niddk.nih.gov [employer]: www.urologyhealth.org Contact a health care [...] provider. Document Revised: 09/02/2020 Document Reviewed: 09/02/2020 [employer] Patient Education 2023 [employer] 10/08/2024 09:45:10 Urinary Tract Infection, Adult [...] Treatment for this condition includes: Antibiotic medicine. Nrsf-hpa-hsyntjo medicines to treat discomfort. Drinking enough water [...] Follow these instructions at home: Medicines Take ddka-ybg-rlecyan and prescription medicines only as told by [...] provider. Document Revised: 09/04/2020 Document Reviewed: 09/09/2020 [employer] Patient Education 2023 [employer] Follow Up Care 09/09/2024 14:35:59 With:MITRA Quintero APRN, JAYESH Whaley, URL Address: When: Unknown Comments:4 mos [facility] [place] 08-28-2025 NotePatient Education Obstetrics and Gynecology [...] this condition includes: ??? Antibiotic medicine. ??? Fupm-bpy-qkkfgeb medicines to treat discomfort. ??? Drinking enough [...] these instructions at home: Medicines ??? Take lxvi-izx-rozcmxi and prescription medicines only as told by [...] Make sure you di (more content not included)...[facility]08-[facility] NotePatient Education Custom Cystoscopy with Botox injection [...] if you have a fever over 100 degrees.[facility] 09-22-2024 NoteHistory and Physical Patient: OZZIE GIFFORD [...] = 1 tab(s), Oral, Daily Potassium Chloride (Ydn-Wthr-Wbw M10) 10 mEq oral tablet, extended release quetiapine 50 mg oral tablet rosuvastatin 20 mg Tab topiramate 50 mg Tab trospium 60 mg oral capsule, extended release 60 mg = 1 cap(s), Oral, qAM vibegron 75 mg oral tablet 75 mg = 1 tab(s), Oral, Daily Vitamin C See Instructions Problem list: All Problems Stroke / SNOMED CT 207538656 / Confirmed Headache / SNOMED CT 89860731 / Confirmed Hypertension / SNOMED CT 5773221216 / Confirmed Dysuria / SNOMED CT 80318125 / Confirmed Incontinence without sensory awareness / SNOMED CT 3397864315 / Confirmed White matter disease / SNOMED CT 2108654823 / Confirmed UTI (urinary tract infection) / SNOMED CT 322543065 / Confirmed Recurrent UTI / SNOMED CT 328483074 / Confirmed ESBL (extended spectrum beta-lactamase) producing bacteria infection / SNOMED CT 2815207002 / Confirmed ESBL E coli urine Canceled: Mixed incontinence / SNOMED CT 98444416 Histories Family History: Primary malignant neoplasm of female breast Mother Primary malignant neoplasm of bone Father Primary malignant neoplasm of brain Mother Procedure history: Colonoscopy (procedure) (068336302) on 05/12/2021 at 70 Years. Knee replacement (061342923). Breast surgery (1013804063). Hysterectomy (336829005). Gastric bypass (8558982700). Social History Social & Psychosocial Habits Tobacco [...] Soft. Musculoskeletal Normal strength. Integumentary: Warm, Dry, [place]. Neurologic: Alert, Oriented. Psychiatric: Cooperative, Appropriate mood & affect. Impression and Plan Diagnosis Urge incontinence (DST73-ES N39.41, Working, Medical). Condition: Stable. Counseled: Patient, Regarding diagnosis, Regarding treatment.[facility] CenterComment on above:Result Comment: Electronically Signed By: VASQUEZ VIDES, Alexandr Banks.br\Date and Time Signed: 09/22/24 07:57 [id number] Hospital Discharge instructions Patient Education 08/18/2024 09:19:23 [...] Up Care 07/20/2024 12:07:40 With:Alexandr OVALLE Address: [address] [place], [place] [id number] Business (1) When: Unknown Comments:Office will call to schedule follow up [facility] 07-08-2025 NotePatient Education Custom Cystoscopy with Urethral [...] you have a fever over 100 degreesFisher [facility] Evaluation note* Diagnosis Onset Date Resolution Status Admit Date Ataxia chronicJuly 2024 2:44pmGait instabilitychronicJuly 2024 2:44pmIschemic strokechronicJuly 2024 2:44pmPrimary progressive aphasiachronicJuly 2024 2:44pm [facility] Work Phone: 1(271) 245-100007-01-2025 History of Present illness Narrative* Cindy Collado [...] asa, amlodipine, metoprolol XL documented in this encounterSouthPointe HospitalFoozgqmfqh12-28-8402 NoteUT Cardiology [facility] Subjective Ozzie Gifford is a 74 [...] past year she was admitted to the [facility] in October 2022 and February 2023 due to TIA symptoms. She and her son tell me that she underwent redo right carotid surgery in 2023 at [facility]. Today she reports that she has [...] rub. No gallop. Pulmonary: (more content not included)...[facility] 07-16-2024 Hospital Discharge instructions Patient Education [...] your health care provider. General instructions Take utsa-udt-xuizyki and prescription medicines only as told by [...] provider. Document Revised: 10/17/2020 Document Reviewed: 10/17/2020 [employer] Patient Education 2023 [employer]. Follow Up Care 07/03/2024 14:11:33 With:[facility] Address: When: Unknown Comments:For procedure as scheduled. [facility] 06-05-2025 NotePatient Education Obstetrics and Gynecology Overactive [...] health care provider. General instructions ??? Take qseq-oem-nlwtxpp and prescription medicines only as told by [...] you drink, and whe (more content not included)...[facility]05-20-2025 History of Present illness Narrative* Chaim Hare, [...] No history of alcohol/substance abuse or smoking. [place] language Macedonian. Competed high school education. 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 Has 2 [...] design 2-5th %ile. Motor/Speed of Processing: Right-handed. Electronic Warfare Officer strength 21st %ile with right- hand, 2nd [...] individual. Please contact me with anyquestions at [phone]. documented in this encounterSouthPointe HospitalAsgsylndmv09-12-3766 History of Present illness Narrative* Chaim Hare, [...] No history of alcohol/substance abuse or smoking. [place] language Macedonian. Competed high school education. 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 Has 2 [...] Disturbance of skin sensation 12/02/2015 HTN (hypertension) ([facility]) Muscle spasm 12/02/2015 Myoclonus 12/02/2015 Obesity MEDICATIONS: [...] of this individual. Please contact me with [employer] at [phone]. documented in this encounterSouthPointe HospitalLmikgsfwbg96-98-9246 History of Present illness Narrative* Cindy Collado [...] not better fu in office Relevant Medications ffqggxme-cvudptsiq-hrkitudwtzhnwi (Cortisporin) otic solution documented in this [facility]04-23-2025 Instructions* Patient Instructions* Cindy Collado NP - 2024 10:30 AM EDT Ear drops: 4 drops each ear three times daily for 10 days, if not better contact the office documented in this [facility]04-21-2025 History of Present illness Narrative* Jameson Mcleod [...] was previously diagnosed with, functional gait, in [place], [place]. She notices a tremor every once [...] wrist extensors , wrist flexor , and cut roll machine operator strength 4+/5. LUE strength deltoid , biceps , triceps , wrist extensors , wrist flexor , and cut roll machine operator strength 4+/5. RLE strength iliopsoas, quadriceps, tibialis [...] knee reflex 1+. Stephens's sign negative. Coordination: Qcopld-mi-kghd testing bilateral dysmetria. Substantial truncal ataxia noted. Gusz-qj-qcic testing bilateral dysmetria. Rapid alternating movements mild bradykinesia in the bilateral upper extremities. Gait: Unsteady. Being assisted by her . Unable to tandem walk. Review and summary of old records: MOCA score at [facility] on 06/01/2024: with / [...] to a tertiary care center such as [facility] or [facility] neurology at follow upfor further evaluation and treatment of ataxia/gait instability pending results of work up. Of note, the patient was evaluated by [facility] neurology in June 2023 and diagnosed [...] February 2023 and was evaluated at [facility] where she had a CT head, [...] NP [facility] documented in this [facility]04-21-2025 Instructions* Patient Instructions* Jameson Mcleod NP - 06/01/2024 1:20 PM EDT - MRI of the brain and cervical spine ([facility]) - Check labs - Referral for neuropsychological evaluation documented in this encounterSouthPointe HospitalTkwkotskus23-92-2355 History of Present illness Narrative* LYNSEY LOZANO [...] Items Addressed This Visit Cerebrovascular accident (CVA) ([facility]) - Primary Continue w neurology Cont statin, asa and blood pressure meds Is receiving Home Health services Relevant Orders CBC and differential Primary hypertension ([facility]) Please check blood pressure daily and record [...] with home health CRYSTAL (generalized anxiety disorder) ([facility]) Has been on klonopin for some time OARRS reviewed * Cindy Collado NP - 05/12/2024 7:05 AM EDTAssociated Problem(s): Impaired mobility and activities of daily living Continue with home health * Cindy Collado NP - 05/12/2024 7:05 AM EDTAssociated Problem(s): CRYSTAL (generalized anxiety disorder) ([facility]) Has been on klonopin for some time OARRS reviewed * Cindy Collado NP - 05/12/2024 7:05 AM EDTAssociated Problem(s): Overflow incontinence of urine Continue with urology * Cindy Collado NP - 05/12/2024 7:05 AM EDTAssociated Problem(s): Primary hypertension ([facility]) Please check blood pressure daily and record [...] 7:04 AM EDTAssociated Problem(s): Cerebrovascular accident (CVA) ([facility]) Continue w neurology Cont statin, asa and blood pressure meds Is receiving Home Health services documented in this encounterSouthPointe HospitalOtokjcuamn36-81-6036 Instructions* Patient Instructions* Cindy Collado NP - 05/12/2024 1:40 PM EDT Get labs checked No med dose changes Please do your exercises daily documented in this encounterNOMS [id number] Hospital Discharge instructions Patient Education 04/14/2024 13:55:52 [...] your health care provider. General instructions Take prnn-oja-aniufbw and prescription medicines only as told by [...] provider. Document Revised: 10/17/2020 Document Reviewed: 10/17/2020 [employer] Patient Education 2023 [employer]. 04/14/2024 13:55:47 Urinary Tract Infection, Adult Urinary [...] Treatment for this condition includes: Antibiotic medicine. Plrc-eoo-cvaovge medicines to treat discomfort. Drinking enough water [...] Follow these instructions at home: Medicines Take chnb-pvz-bilshfv and prescription medicines only as told by [...] provider. Document Revised: 09/04/2020 Document Reviewed: 09/09/2020 [employer] Patient Education 2023 [employer]. Follow Up Care 04/14/2024 10:07:35 With:CORRIE EDEN, BERNICE Carias, URL Address: [address] [place] [address]. [place] [address] When: Unknown Comments:F/U in 3 months [facility] 03-04-2025 NotePatient Education Obstetrics and Gynecology Overactive [...] health care provider. General instructions ??? Take yplp-rpr-kptuojk and prescription medicines only as told by [...] you drink, and whe (more content not included)...[facility]02-19-[facility] Hospital Discharge instructions Patient Education 04/01/2024 10:30:58 [...] your health care provider. General instructions Take tjlf-buz-otkgalq and prescription medicines only as told by [...] provider. Document Revised: 10/17/2020 Document Reviewed: 10/17/2020 [employer] Patient Education 2023 [employer]. Follow Up Care 01/29/2024 11:53:51 With:CORRIE EDEN, BERNICE Aretha, URL Address: [address] [facility] [place] [address] When: Unknown [facility] [place] [id number] NotePatient Education Obstetrics and Gynecology Overactive Bladder, [...] health care provider. General instructions ??? Take huaq-qne-gxnimnp and prescription medicines only as told by [...] you drink, and whe (more content not included)...[facility]01-15-2025 History of Present illness Narrative* Cindy Collado NP - 02/26/2024 4:06 PM EST amb documented in this encounterSouthPointe HospitalTejnonvdjc93-12-3114 Evaluation note* Diagnosis Onset Date Resolution Status Admit Date Carotid stenosis acuteJanuary 2024 10:00amInternal carotid artery stent presentacuteJanuary 2024 10:00amLower extremity edemaacuteJanuary 2024 10:00amPAD (peripheral artery disease)acuteJanuary 2024 10:00am [facility] Work Phone: 1(659) 741-496912-18-2024 NoteUrology Office/Clinic Note HPI Staff Pt is [...] yes avoids baths/hot tubs yes avoids scented PHARMACIST'S AIDE products no urinates after sexual activity n/a [...] When Contact Information BERNICE CLEMENTE PA-C, URL [address] [place] [address] Additional Instructions: F/U 2-3 months [...] mg ER Tab, Oral, Daily Potassium Chloride (Iba-Skrl-Yks M10) 10 mEq oral tablet, extended release quetiapine 50 mg oral tablet rosuvastatin 20 mg Tab topiramate 50 mg Tab trospium 60 mg oral (more content not included)...[facility] Comment on above:Result Comment: Electronically Signed By: BERNICE CLEMENTE PA-C\.br\Date and Time Signed: 01/28/2414:48 EST\.br\Electronically Co-Signed By: Kori German PA-C\.br\Date and Time Co-Signed: 01/29/2412:49 [id number] Hospital Discharge instructions Patient Education 01/29/2024 12:46:53 [...] Treatment for this condition includes: Antibiotic medicine. Ngxu-cgq-zwcsjok medicines to treat discomfort. Drinking enough water [...] Follow these instructions at home: Medicines Take gbhi-mgk-pqusgqk and prescription medicines only as told by [...] provider. Document Revised: 09/04/2020 Document Reviewed: 09/09/2020 [employer] Patient Education 2023 [employer] 01/29/2024 12:46:48 Urinary Incontinence Urinary Incontinence Urinary [...] stimulation). ?For women, using a center medical director to prevent urine leaks. This [...] right after experiencing incontinence. General instructions Take bcfz-fvn-vehqjpl and prescription medicines only as told by [...] important. Where to find more information National [place] of Diabetes and Digestive and Kidney Diseases: www.niddk.nih.gov [place] [employer]: www.urologyhealth.org Contact a health care [...] Document Reviewed: 09/02/2020 Else[employer] Patient Education 2023 [employer]. Follow Up Care 01/28/2024 10:11:46 With:BERNICE CLEMENTE PA-C, URL Address: [address] [place] [address] When: Unknown Comments:F/U 2-3 months [facility] [place] [id number] NotePatient Education Obstetrics and Gynecology Urinary Tract [...] this condition includes: ??? Antibiotic medicine. ??? Cvwr-pef-tmdgckf medicines to treat discomfort. ??? Drinking enough [...] these instructions at home: Medicines ??? Take haby-yts-dykelyg and prescription medicines only as told by [...] Make sure you di (more content not included)...[facility]12-[facility] History of Present illness Narrative* Cindy Collado [...] by [place] 02/20/23 ecoli documented in this encounterSouthPointe [id number] History of Present illness Narrative* Cindy Collado [...] 10:42 AM ESTAssociated Problem(s): Cerebrovascular accident (CVA) ([facility]) Continue w neurology Cont statin, asa and [...] List Items Addressed This Visit Coronary atherosclerosis ([facility]) Continue with cardiology Is on statin, asa, b jimmy and amlodipine Check lipids yearly and prn dose changes Relevant Medications aspirin (Aspirin Adult Low Strength) 81 MG chewable tablet rosuvastatin (Crestor) 20 MG tablet Cerebrovascular accident (CVA) ([facility]) Continue w neurology Cont statin, asa and blood pressure meds Relevant Medications aspirin (Aspirin Adult Low Strength) 81 MG chewable tablet rosuvastatin (Crestor) 20 MG tablet Primary hypertension ([facility]) - Primary Please check blood pressure daily [...] Recurrent major depressive disorder, in full remission ([facility]) Takes klonopin prn, topirmate, seroquel as well Migraine with aura and without status migrainosus, not intractable ([facility]) Continue with topirimate Relevant Medications topiramate 50 MG tablet Overflow incontinence of urine Will reach out to Urology office to get an appt with them Relevant Orders Ambulatory referral to Urology Carotid artery stenosis Statin, asa, vascular monitoring Relevant Medications rosuvastatin (Crestor) 20 MG tablet Heart failure, unspecified ([facility]) Current meds: lasix, bblocker, crestor and amlodipine [...] Urology Other Visit Diagnoses Anxiety and depression ([facility]) Relevant Medications clonazePAM (KlonoPIN) 0.5 MG tablet * Cindy Collado NP - 01/21/2024 6:46 AM ESTAssociated Problem(s): Migraine with aura and without status migrainosus, not intractable ([facility]) Continue with topirimate * Cindy Collado NP [...] asa, amlodipine, metoprolol XL documented in this [facility]12-10-2024 Instructions* Patient Instructions* Cindy Collado NP - 01/21/2024 9:40 AM EST We will enroll you in Chronic Care Management with [facility] Ordered antibiotic, if we need to change atb based on culture will let you know I will call Urology office too to get you in documented in this [facility]10-28-2024 History of Present illness Narrative* Nakul Zazueta DO - 12/09/2023 9:00 AM EDT Images from the original note were not included. Chief complaint: Dizziness and imbalance Subjective Ozzie Gifford, 73 y.o., female HPI Ozzie, 73 y.o., female presents today for consultation at the request of Cindy Kholi NP for dizziness, impaired mobility and migraines. Recently seen at [facility]. A CT head, CT angio neck/head [...] , wrist extensors , wrist flexor , cut roll machine operator strength 5/5. LUE Strength deltoid , biceps , triceps , wrist extensors , wrist flexor , cut roll machine operator strength 5/5. RLE Strength illopsoas, quadriceps, tibialis [...] negative. Coordination: Substantial truncal ataxia noted. Abnormal kggjdx-lq-zmdm testing. Abnormal yhlw-ab-gkzl testing. Gait: Patient has a substantially magnetic [...] that the patient has substantial ataxia on nxyrjw-qs-ecqx testing, she also hastruncal ataxia noted when closing her eyes and difficulty with lgam-un-ckqw. She has an ataxic gaitas well. This [...] patient has requested these be done at [facility] only. We will keep in mind [...] of 2023 and was actually seen at [facility] where she had CT, CT angiogram [...] monitoring of the patient. documented in this encounterSouthPointe HospitalCvnebrrwls28-00-3960 History of Present illness Narrative* Aime Clark [...] Ambulatory referral to ENT documented in this encounterSouthPointe HospitalJdtpiypkty83-91-0352 History of Present illness Narrative* Cindy Collado [...] List Items Addressed This Visit Mixed hyperlipidemia ([facility]) Relevant Orders Comprehensive metabolic panel Lipid panel Coronary atherosclerosis ([facility]) Crestor, toprol and ASA Relevant Medications aspirin (Aspirin Adult Low Strength) 81 MG chewable tablet Other Relevant Orders CBC and differential Lipid panel Cerebrovascular accident (CVA) ([facility]) Would like a more local neurologist Relevant Medications aspirin (Aspirin Adult Low Strength) 81 MG chewable tablet Other Relevant Orders CBC and differential Lipid panel Ambulatory referral to Neurology Dysarthria Primary hypertension ([facility]) stable Relevant Medications aspirin (Aspirin Adult Low Strength) 81 MG chewable tablet Other Relevant Orders Comprehensive metabolic panel Urinalysis with reflex microscopic (clean catch) Albumin, urine, random Migraine with aura and without status migrainosus, not intractable ([facility]) Relevant Orders Ambulatory referral to Neurology Dizziness and giddiness Refer to neuro Relevant Orders Ambulatory referral to Neurology Carotid artery stenosis Cont statin, and ASA Impaired mobility and activities of daily living Relevant Orders Ambulatory referral to Neurology Oropharyngeal dysphagia - Primary Cont with speech therapy Will refer to ENT Relevant Orders Ambulatory referral to ENT documented in this encounterSouthPointe [id number] NoteUT Cardiology - [facility] Subjective Bhargavluna Gifford is a 73 y.o. year old female patient being seen for 6 mo follow up CAD, hypertension, and LE edema. C/o chest pain 2-3 times a day, but attributes it from her inability to swallow. Patient Active Problem List Diagnosis Carotid artery stenosis Cerebrovascular accident ([facility]) Contusion of knee Coronary atherosclerosis Hypertension Knee joint replacement by other means Osteoarthrosis, unspecified whether generalized or localized, lower leg Reflex sympathetic dystrophy of lower limb Status post placement of implantable loop recorder Tear of medial cartilage or meniscus of knee, current Mixed hyperlipidemia Bradycardia Bilateral lower extremity edema Atypical angina ([facility]) SARAVIA (dyspnea on exertion) JASEN (acute kidney injury) ([facility]) AMS (altered mental status) Anemia Aphasia due to acute stroke ([facility]) Confusion Dysarthria Dysphagia Dystonia H/O traumatic brain injury Headache History of cerebrovascular accident (CVA) with residual deficit Hospital discharge follow-up Impaired mobility and activities of daily living Migraine with aura and without status migrainosus, not intractable Overflow incontinence of urine Recurrent major depressive disorder, in full remission ([facility]) Encounter for prophylactic measures, unspecified URTI (acute [...] past year she was admitted to the [facility] in October 2022 and February 2023 due to TIA symptoms. She and her son tell me that she underwent redo right carotid surgery this year at [facility]. Today she reports that she has [...] no abdominal tenderness. Musculoskeleta (more content not included)...[facility] 08-21-2023 Hospital Discharge instructions Patient Education [...] medicine. Follow these instructions at home: Take jbwq-ckd-srbpvmm and prescription medicines as told by your [...] provider. Document Revised: 03/14/2020 Document Reviewed: 11/17/2019 [employer] Patient Education 2022 [employer]. Follow Up Care 08/20/2023 09:52:06 With:BERNICE CLEMENTE PA-C, URL Address: [address] [address] Business (1) When: only if needed [facility] [place] 07-10-2024 NotePatient Education Caregiving Antibiotic Medicine, Adult [...] Follow these instructions at home: ? Take rtal-muz-gkmngwm and prescription medicines as told by your health care provider. ? Return to your normal activities as told by your health care provider. Ask your health care provider what activities are safe for you. ? Keep all follow-up visits as told by your health care provider. This is important. Contact a health care provider if: ? Your s (more content not included)...[facility]2024 Hospital Discharge instructions Patient Education 07/15/2023 13:39:51 [...] Treatment for this condition includes: Antibiotic medicine. Laxa-jkk-zvkvsfu medicines to treat discomfort. Drinking enough water [...] Follow these instructions at home: Medicines Take mcdn-tmw-mjclusg and prescription medicines only as told by [...] provider. Document Revised: 09/09/2020 Document Reviewed: 09/09/2020 [employer] Patient Education 2022 [employer]. 07/15/2023 13:39:50 Urinary Incontinence Urinary Incontinence Urinary [...] stimulation). ?For women, using a center medical director to prevent urine leaks. This [...] right after experiencing incontinence. General instructions Take bhge-mhn-hquxdnk and prescription medicines only as told by [...] important. Where to find more information National [place] of Diabetes and Digestive and Kidney Diseases: www.niddk.nih.gov [place] U[employer] Association: www.urologyhealth.org Contact a health care [...] provider. Document Revised: 09/02/2020 Document Reviewed: 09/02/2020 [employer] Patient Education 2022 [employer]. Follow Up Care 07/15/2023 10:29:19 With:MITRA Quintero APRN, Carmen Rm, JAYESH, URL Address: When: Unknown Comments:1 yr w/ PVR [facility] [place] 2024 Evaluation + Plan note Diagnostic Tests Pending * Urine Culture 07/15/23 [facility]05-24-2024 Miscellaneous Notes* Telephone Encounter - Adia Bowling CMA - 07/05/2023 2:43 PM EDT PT referral faxed to [facility] 07/02/23. Confirmation received. documented in this encounterGal[facility]05-[facility] Telephone encounter Note* Telephone Encounter - Adia Bowling CMA - 07/05/2023 2:43 PM EDT PT referral faxed to [facility] 07/02/23. Confirmation received. [facility]05-24-2024 Miscellaneous Notes* Telephone Encounter - Beti Danielle - 07/05/2023 10:56 AM EDT Please fax patients last office notes (07/02/2023) To: [facility] Fax #: [phone] Phone #: [phone], option 1 Who is calling: Bessy * Telephone Encounter - Tri Gregory - 07/05/2023 10:56 AM EDT Faxed included information to [phone] on 07/05/23 at 15:30 - 07/02/[address] Airta documented in this encounterGalion Hospital05-24-2024 Telephone encounter Note* Telephone Encounter - Beti Danielle - 07/05/2023 10:56 AM EDT Please fax patients last office notes (07/02/2023) To: [facility] Fax #: [phone] Phone #: [phone], option 1 Who is calling: Bessy [facility]05-24-2024 Telephone encounter Note* Telephone Encounter - Tri Gregory - 07/05/2023 10:56 AM EDT Faxed included information to [phone] on 07/05/23 at 15:30 - 07/02/[address] Arita [facility]05-21-2024 History of Present illness Narrative* Martin Arita MD - 07/02/2023 9:00 AM EDT Images from the original note were not included. [address] [facility] [address] Patient: Ozzie Ramireziott Date of : 1950 Encounter Date: 07/02/2023 Patient Care Team: Gerry Godwin MD as PCP - General (Family Medicine) History of Present Illness: Ms. Ozzie Gifford is a 73 y.o. year old female who is seen today at the [facility] for a new patient visit. [...] to display PTSD: No data to display [place]: No data to display IMAN-10: No data to display Past Medical, Family, Surgical, and Social History Update: The following portions of the patient's history were reviewed and updated as appropriate: allergies, current medications, past family history, past medical history, past social history, past surgicalhistory and problem list. Past Medical History: Diagnosis Date Breast disorder Headache HTN (hypertension) Stroke ([facility]) Family History Problem Relation Age of Onset Brain Tumor Mother Cancer Father Heart attack Brother Past Surgical History: Procedure Laterality Date APPENDECTOMY BARIATRIC SURGERY BREAST MASS EXCISION Patient had milk duct removal and some breast tissue removal CHOLECYSTECTOMY COLONOSCOPY Diagnostic cerebral angiogram N/A 04/05/2018 Performed by Soren Hollingsworth MD at [facility] HYSTERECTOMY REPLACEMENT TOTAL KNEE Stroke Thrombectomy, 04/05/2018 N/A 04/05/2018 Performed by Soren Hollingsworth MD at [facility] TONSILLECTOMY Current Outpatient [...] Right achilles 0 Left achilles 0 MDS-UPDRS: @FLOW([id number],2102 54594,[id number],2102 06574,[id number],[id number],2102 11837,631600367,2102 25659,[id number],[id number],[id number],[id number],2102 22439,149213093,2102 04300,[id number],[id number],[id number],2102 10849,[id number])@ TETRAS: @FLOW(91892,28414,39581,15057,56620,63984,85017,09386,43477,44962,67110,70577,15 710,51809,69490,1572 4,14220,53113,47765,51030,33937,65419,64765,38513,30892,25582,17715,81900,60071, 45022,21776,18152,15 797,30372,05545,08639,54997,25877,27128,74571,27185,88779,56200,07562,87427,1581 5,22248,60243)@ Assessment and Plan: Ozzie Gifford is a [...] List None Follow-up: 6 months Swapnil Morales [address] IMARTIN MD, was physically present with [...] you for your understanding. documented in this encounterGalion Hospital04-24-2024 Miscellaneous Notes* Telephone Encounter - Tri [...] a sooner appt, pt did not answer. Travelers' Aid Worker left a brief message stating for a call back. documented in this [facility]04-24-2024 Telephone encounter Note* Telephone Encounter - Tri [...] to hear from our office. Please advise. [facility] Telephone encounter Note* Telephone Encounter - Martin Arita MD - 06/05/2023 2:58 PM EDT We can try to add on June 11, at 12:00 p.m.. [facility] Work Phone: 1(839) 180-667504-24-2024 Telephone encounter Note* Telephone Encounter - Britney Banks CMA - 06/05/2023 2:58 PM EDT Called pt to schedule a sooner appt, pt did not answer. Travelers' Aid Worker left a brief message stating for a call back. [facility] [employer] [id number] Miscellaneous Notes* Telephone Encounter - Re Becerra - 04/10/2023 11:48 AM EST Received a call from patient's PCP office regarding appointment that's scheduled on 07/02/23 at 9:00a with Dr. Arita. Their office stated patient was suppose to be scheduled within 3 weeks from seeing last provider Dr. Haddad, Travelers' Aid Worker did review office note and nothing was stated that patient neededa [address] Arita. Patient was scheduled at next available time for provider. Nofurther questions at this time. documented in this [facility] [employer] [id number] Telephone encounter Note* Telephone Encounter - Re Becerra - 04/10/2023 11:48 AM EST Received a call from patient's PCP office regarding appointment that's scheduled on 07/02/23 at 9:00a with Dr. Arita. Their office stated patient was suppose to be scheduled within 3 weeks from seeing last provider Dr. Haddad, Travelers' Aid Worker did review office note and nothing was stated that patient neededa [address] Arita. Patient was scheduled at next available time for provider. Nofurther questions at this time. [facility]02-15-2024 Miscellaneous Notes* Telephone Encounter - Марина Whiting - 03/28/2023 2:16 PM EST [facility] New patient referral [...] mailed 03/29/2023 - MMV documented in this encounterGalion Hospital02-15-2024 Telephone encounter Note* Telephone Encounter - [...] INSURANCE INFORMATION TO THEIR NEW PATIENT APPOINTMENT [employer]02-15-2024 Telephone encounter Note* Telephone Encounter - Viktoriya Myles - 03/28/2023 2:16 PM EST Patient is scheduled for the following appointment: 07/02/2023 09:00 - MARTIN ARITA MD New patient Dizzy [[id number]] Referring provider: Rabia Dubose PA-C i Referred to Dr. Arita *Insurance verified: E-[employer] MEDICARE/[employer]HEM MEDICARE ADVANTAGE* NOT A WORKMANS COMP CASE New patient paperwork mailed 03/29/2023 - MMV [facility]02-07-2024 History of Present illness Narrative* Duncan Haddad MD - 03/20/2023 1:00 PM EST Reason for visit: dizziness HPI: Ozzie Gifford is a 72 y.o. 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 She was seen at [facility] for of speech disturbance and gait [...] Date Breast disorder Headache HTN (hypertension) Stroke ([facility]) Past Surgical History Past Surgical History: Procedure Laterality Date APPENDECTOMY BARIATRIC SURGERY BREAST MASS EXCISION Patient had milk duct removal and some breast tissue removal CHOLECYSTECTOMY COLONOSCOPY Diagnostic cerebral angiogram N/A 04/05/2018 Performed by Soren Hollingsworth MD at [facility] HYSTERECTOMY REPLACEMENT TOTAL KNEE Stroke Thrombectomy, 04/05/2018 N/A 04/05/2018 Performed by Soren Hollingsworth MD at [facility] TONSILLECTOMY Family History [...] in the note above. documented in this encounterOhioHealth Nelsonville Health CenterTrustifi [id number] Instructions* Patient Instructions* Rabia Dubose PA-C - 03/20/2023 1:00 PM EST Continue aspirin and statin Follow up with dizziness specialist We will discuss with you following appointment with Dr. Arita documented in this encounterOhioHealth Nelsonville Health CenterVlingo [facility] [id number] Hospital Discharge instructions Patient Education 03/07/2023 14:30:33 [...] stimulation). ?For women, using a center medical director to prevent urine leaks. This [...] right after experiencing incontinence. General instructions Take ushs-mqn-izljrcc and prescription medicines only as told by [...] important. Where to find more information National [place] of Diabetes and Digestive and Kidney Diseases: www.niddk.nih.gov [place] U[employer] Association: www.urologyhealth.org Contact a health care [...] provider. Document Revised: 09/02/2020 Document Reviewed: 09/02/2020 [employer] Patient Education 2022 [employer]. Follow Up Care 02/21/2023 11:58:10 With:MITRA Quintero APRN, JAYESH Whaley, URL Address: When:Within 8 Week(s) Comments:w/ pvr [facility] 01-22-2024 Miscellaneous Notes* Telephone Encounter - Joie Leyva RN - 03/04/2023 10:13 AM EST ----- Message from Sara Ozuna PA-C sent at 03/02/2023 3:07 PM EST ----- Regarding: [facility] follow up Patient has appt with Dr. [place] on 03/12, she was just seen at [facility] via telestroke on 03/02. Dr. Haddad would like her put in his neurointervention clinic so please move the appointment. [place] abnormal vessel imaging in the right brachiocephalic and left ICA, MRI was negative for acute stroke. Please get imaging and reports from [place] prior to her appointment. * Telephone Encounter - Ginna Pak CMA - 03/04/2023 10:13 AM EST Faxed imaging request to [facility]. Currently waiting for response. * Telephone [...] Radiology report was received and uploaded to [employer]. Confirmed on [email or web address] that images are also in. Please advise. [...] she must see one in person . Travelers' Aid Worker explained what video visits are, and patient states she is aware of what it is but she does notwant it. Pt was also upset that the earliest available for Dr. Haddad is 03/20/23 at 3:00 PM because she willdriving back in the dark. Pt does not want anything later than 1:30 PM. Tried to reach out to [employer] contract writer could squeeze her in, but could not receive an answer on time. If it is not possible, contract writer will call to reschedule. Please advise. * Telephone Encounter - Joie Leyva RN - 03/04/2023 10:13 AM EST Okay as scheduled documented in this encounterGalion Hospital01-22-2024 Telephone encounter Note* Telephone Encounter - Joie Leyva RN - 03/04/2023 10:13 AM EST ----- Message from Sara Ozuna PA-C sent at 03/02/2023 3:07 PM EST ----- Regarding: [facility] follow up Patient has appt with Dr. [place] on 03/12, she was just seen at [facility] via telestroke on 03/02. Dr. Haddad would like her put in his neurointervention clinic so please move the appointment. [place] abnormal vessel imaging in the right brachiocephalic and left ICA, MRI was negative for acute stroke. Please get imaging and reports from [place] prior to her appointment. [facility]01-22-2024 Telephone encounter Note* Telephone Encounter - Ginna Pak CMA - 03/04/2023 10:13 AM EST Faxed imaging request to [facility]. Currently waiting for response. [facility]01-22-2024 Telephone encounter Note* Telephone Encounter - Selin Peterson - 03/04/2023 10:13 AM EST Called patient and left VM [facility]01-22-2024 Telephone encounter Note* Telephone Encounter - Angie Sosa - 03/04/2023 10:13 AM EST Patient called and confirmed appointment. Patient will be here on 03/12/2023 at 9:30am [facility]01-22-2024 Telephone encounter Note* Telephone Encounter - Ginna Pak CMA - 03/04/2023 10:13 AM EST Radiology report was received and uploaded to [employer]. Confirmed on [email or web address] that images are also in. Please advise. [facility]01-22-2024 Telephone encounter Note* Telephone Encounter - Ginna Pak CMA - 03/04/2023 10:13 AM EST Called pt to reschedule her appointment with Dr. Ramírez Haddad. She expressed frustration for trying reschedule last minute when her took off work for tomorrow's appointment. Suggested video visit for next week, but she insists on seeing regular doctor and she must see one in person . Travelers' Aid Worker explained what video visits are, and patient states she is aware of what it is but she does notwant it. Pt was also upset that the earliest available for Dr. Haddad is 03/20/23 at 3:00 PM because she willdriving back in the dark. Pt does not want anything later than 1:30 PM. Tried to reach out to [employer] contract writer could squeeze her in, but could not receive an answer on time. If it is not possible, contract writer will call to reschedule. Please advise. [facility]01-22-2024 Telephone encounter Note* Telephone Encounter - Joie Leyva RN - 03/04/2023 10:13 AM EST Okay as scheduled [facility]12-14-2023 Miscellaneous Notes* Telephone Encounter - Charlette Burr - 01/24/2023 12:46 PM EST Patient called to see if we received paperwork that was sent from her PCP in July. Caller states she has had a new stroke and needs to be seen. Patient states she has been having headaches and dizziness. Please advise [phone] * Telephone Encounter - Joie Leyva RN - 01/24/2023 12:46 PM EST Patient last seen in 2019. No paperwork has been completed or received. Please see where patient had recent stroke and gather records. * Telephone Encounter - Ginna Pak CMA - 01/24/2023 12:46 PM EST Called pt. She state Dr. Godwin sent the paperwork back in November 2022. MRI was done at [place] very recently. Travelers' Aid Worker will be requesting image and any office visit notes related to neurology. Pt seems to be very frustrated by the lack of communication. Travelers' Aid Worker informed that we will reach out to [place] to gather as much information. Travelers' Aid Worker must note that the quality of the call was very poor and it was hard to communicate with thepatient. Asked if she could move to somewhere with a better operator receptionist, but even then the quality did not improve. At the end of the call, she showed more frustration which contract writer could not understandand she hung up. * Telephone Encounter - Ginna Pak CMA - 01/24/2023 12:46 PM EST Called [facility] radiology to confirm if she has gotten any MRI in November. It was ordered by one of the hospitalists. A certified technician could not confirm who ordered the [...] 03/12/23 at 10:00 AM documented in this encounterOhioHealth Nelsonville Health CenterTrustifi [id number] Telephone encounter Note* Telephone Encounter - Charlette Burr - 01/24/2023 12:46 PM EST Patient called to see if we received paperwork that was sent from her PCP in July. Caller states she has had a new stroke and needs to be seen. Patient states she has been having headaches and dizziness. Please advise [phone] [facility]12-14-2023 Telephone encounter Note* Telephone Encounter - Joie Leyva RN - 01/24/2023 12:46 PM EST Patient last seen in 2018. No paperwork has been completed or received. Please see where patient had recent stroke and gather records. [facility]12-14-2023 Telephone encounter Note* Telephone Encounter - Ginna Pak CMA - 01/24/2023 12:46 PM EST Called pt. She state Dr. Godwin sent the paperwork back in November 2022. MRI was done at [place] very recently. Travelers' Aid Worker will be requesting image and any office visit notes related to neurology. Pt seems to be very frustrated by the lack of communication. Travelers' Aid Worker informed that we will reach out to [place] to gather as much information. Travelers' Aid Worker must note that the quality of the call was very poor and it was hard to communicate with thepatient. Asked if she could move to somewhere with a better operator receptionist, but even then the quality did not improve. At the end of the call, she showed more frustration which contract writer could not understandand she hung up. [facility] [id number] Telephone encounter Note* Telephone Encounter - Ginna Pak CMA - 01/24/2023 12:46 PM EST Called [facility] radiology to confirm if she has gotten any MRI in November. It was ordered by one of the hospitalists. A certified technician could not confirm who ordered the imaging, but confirmed that she pushed over the imaging through PACs and reports via fax. Currently waiting for response. [facility]12-14-2023 Telephone encounter Note* Telephone Encounter - Ginna Pak CMA - 01/24/2023 12:46 PM EST Faxed request for hospitalization records on nov 2022. Currently waiting for response. [facility]12-14-2023 Telephone encounter Note* Telephone Encounter - Ginna Pak CMA - 01/24/2023 12:46 PM EST Called and scheduled an appointment on 03/12/23 at 10:00 AM [facility]09-05-2023 Evaluation note* Encounter Date Diagnosis Assessment Notes [...] with chronic urinary symptoms. Patient verbalized understanding. [employer] Other 02-22-2023 Evaluation note* Encounter Date Diagnosis [...] 1 year with repeat studies for surveillance. [employer] Other 10-18-2022 NoteED Procedure Charges Entered On: 11/28/2021 17:45 EDT Performed On: 11/28/2021 17:44 EDT by Heena Crawford [employer] ([id number]) Sim Rep Sca to 2.5 [id number] : 1 Heena Crawford - 11/28/2021 17:44 [facility]10-14-2022 NoteED Nursing Discharge Summary Entered On: 11/24/2021 17:29 EDT Performed On: 11/24/2021 17:29 EDT by Jennifer Mccarthy RN [place] Information [id number] ED IV's : No IV ED IV Site Assessment : No IV ED Vitals Completed : Yes ED Final Assessment Completed : Yes ED Progress Note Completed : Yes Complete all PRN/Pain response forms? : Yes ED Disassociate Patient from Monitor : N/A Updated Depart Time : Yes ED Belongings sent w patient [id number] : Not applicable Jennifer Mccarthy RN - [...] Mccarthy RN - 11/24/2021 17:29 EDT [facility]10-14-2022 NotePROCEDURE: CT CHEST WITHOUT IV CONTRAST HISTORY: WHAT SYMPTOMS ARE YOU EXPERIENCING? - PT FELL AND HIT HEAD, PAIN, HX OF STROKE 2019, SOB, CHEST PAIN PAIN COMPARISON: None TECHNIQUE: Multiple contiguous axial CT images of the chest were obtained without the administration of intravenous contrast. Sagittal and coronal reconstructions were performed. All CT scans at [facility] use dose modulation, iterative reconstruction, and/or weight [...] in diameter. See below for follow-up recommendations. [facility] MANDATED QUALITY DATA - FOLLOW-UP IMAGING FOR [...] By: ISMAEL AGUILAR MD Signed Out: 11/24/21 14:28:[address] [place], [place] 5261910-12-2022 Consult note Author Shavon Srinivasannadege [facility] November 22, 2021 11:54amNote Date/TimeOct2021 11:45[place] [address] Cardiology Consult Note Signed Patient: Ozzie Gifford MR#: [id number] : 1950 Acct:[id number] Age/Sex: 71 / F Adm Date: 2 Loc: Room: [address] [place] [address] Type: ADM IN Attending Dr: Anna Valladares [...] past she underwent work-up by cardiology in [place]. She did undergo an implantableloop recorder because [...] x10E3/uL Lymph # (Auto) 1.2 (1.00-4.8) x10E3/uL [place] # (Auto) 0.4 (0.0-0.8) x10E3/uL Eos # [...] 100 mls/hr IV .Q10H [facility] Rx#:[id number] Oral 250 / 500 450 / 450 [...] an implantable loop recorder had seen cardiologyin [place] Code(s): R00.1 - Bradycardia, unspecified (2) AMS [...] continue his long-term follow-up with his primary customs officer in [place] Documented By: Shavon Leos MD 11/22/21 1143 Signed By: <Electronically signed by MD Shavon Leos> 11/22/21 1154 [facility] Work Phone: 1(870) 747-588410-12-2022 Progress note Author Anna Valladares [facility] November 22, 2021 8:17amNote Date/TimeOctober 2021 12:10pm[place] [address] Hospitalist Progress Note Signed Patient: BaltaEwagilbertluna Pino MR#: [id number] : 1950 Acct:[id number] Age/Sex: 71 / F Adm Date: 2 Loc: 3T Room: [address] [place] [address] Type: ADM IN Attending Dr: Anna Valladares MD Copies to: ~ Date of Service: 11/21/2021 Subjective Subjective Narrative: Patient seen and examined. josias, currently still roomed in down in ER awaiting nursing floor availability. She offers no complaint. Keeps talkingof her daughter in [place] dying from cancer currently. thinks this is [...] MD> 11/22/21 0817 [facility] Work Phone: 1(150) 986-721610-11-2022 History and physical note Author Ashleigh Rashid [facility] November 21, 2021 6:39amNote Date/TimeOct2021 6:39am[place] [address] Hospitalist H&P Signed Patient: Ozzie Gifford MR#: [id number] : 1950 Acct:[id number] Age/Sex: 71 / F Adm Date: 2 Loc: ER Room: Type: [facility] ER Attending Dr: Copies to: MD Rafiq [...] % (Auto) 20.4 % (.) 11/21/21 04:12 Powell % (Auto) 9.9 % (.) 11/21/21 04:12 Eos % (Auto) 3.7 % (.) 11/21/21 04:12 Baso % (Auto) 0.8 % (.) 11/21/21 04:12 Neut # (Auto) 3.5 x10E3/uL (1.8-7.7) 11/21/21 04:12 Lymph # (Auto) 1.1 x10E3/uL (1.00-4.8) 11/21/21 04:12 Powell # (Auto) 0.5 x10E3/uL (0.0-0.8) 11/21/21 04:12 [...] pH 5.5 (5.0-9.0) 11/21/21 04:20 Ur Specific [place] 1.010 (1.001-1.030) 11/21/21 04:20 Urine Protein Negative [...] Lovenox Documented By: Ashleigh Cruz MD 2 7460 Signed By: <Electronically signed by Ashleigh Cruz MD> 11/21/21 0639 [facility] Work Phone: 1(916) 655-433710-11-2022 History and physical note Author Ashleigh Rashid [facility] November 21, 2021 6:39amNote Date/TimeOct2021 6:39[place] [address] Hospitalist H&P Signed Patient: Ozzie Gifford MR#: [id number] : 1950 Acct:[id number] Age/Sex: 71 / F Adm Date: 2 Loc: ER Room: Type: [facility] ER Attending Dr: Copies to: MD Rafiq [...] % (Auto) 20.4 % (.) 11/21/21 04:12 Powell % (Auto) 9.9 % (.) 11/21/21 04:12 Eos % (Auto) 3.7 % (.) 11/21/21 04:12 Baso % (Auto) 0.8 % (.) 11/21/21 04:12 Neut # (Auto) 3.5 x10E3/uL (1.8-7.7) 11/21/21 04:12 Lymph # (Auto) 1.1 x10E3/uL (1.00-4.8) 11/21/21 04:12 [place] # (Auto) 0.5 x10E3/uL (0.0-0.8) 11/21/21 04:12 [...] pH 5.5 (5.0-9.0) 11/21/21 04:20 Ur Specific [place] 1.010 (1.001-1.030) 11/21/21 04:20 Urine Protein Negative [...] signed by Ashleigh Cruz MD> 11/21/21 0639 [facility] Work Phone: 1(372) 916-878608-17-2022 Evaluation note* Encounter Date Diagnosis Assessment Notes [...] studies. All of her questions were addressed. [facility] Other 08-12-2022 Evaluation note* Encounter Date Diagnosis [...] Advised that patient may continue to use [id number] medications as needed for supportive treatment. Discussed that it could be possible that her nausea/vomiting/diarrhea could still be some residual side effects from the Paxlovid medication. At this time she should not take anymore that. She may follow-up with family doctor as scheduled on Saturday if she has more concerns. [facility] Other 08-10-2022 Evaluation note* Encounter Date Diagnosis [...] new questions or concerns at this time. [facility] Other 06-22-2022 Evaluation note* Encounter Date Diagnosis [...] Jul,ther specified postprocedural states (ICD-10 - Z98.890) [facility] Other 06-01-2022 Evaluation note* Encounter Date Diagnosis [...] Jul,ther specified postprocedural states (ICD-10 - Z98.890) [facility] Other 04-20-2022 Evaluation note* Encounter Date Diagnosis [...] Progress activity as tolerated. Call with questions/concerns. [facility] Other 03-23-2022 Evaluation note* Encounter Date Diagnosis Assessment Notes Treatment Notes Treatment Clinical Notes Apr, Other specified postprocedural s tates (ICD-10 - Z98.890) Radiographs reviewed with patient. Patient is progressing well from surgery. Continue occupational therapy exercises. Call with questions/concerns. Apr,ther fractures of lower end of left radius, subsequent encounter for closed fracture with routine healing (ICD-10 - S52.592D) [facility] Other 01-20-2022 Evaluation note* Encounter Date Diagnosis [...] or reaches 80% or she develops symptoms [facility] Other 10-21-2021 Evaluation note* Encounter Date Diagnosis [...] suggested ice and elevation with compression stockings. [facility] Other 09-30-2021 Evaluation note* Encounter Date Diagnosis [...] classify this is asymptomatic recurrent stenoses currently. [employer] Other Evaluation + Plan note No data available for this section [facility] Evaluation + Plan note Future Appointments Appointment Date:04/01/2024 08:40:00 AM Scheduled Provider:BERNICE CLEMENTE PA-C Location:[facility] Appointment Type:URO Office Visit [facility] Evaluation + Plan note Future Appointments Appointment Date:04/01/2024 08:40:00 AM Scheduled Provider:BERNICE CLEMENTE PA-C Location:[facility] Appointment Type:URO Office Visit Diagnostic Tests Pending * Urine Culture 02/20/24 [facility] evaluation + Plan note Future Appointments Appointment Date:04/22/2024 11:20:00 AM Scheduled Provider:BERNICE CLEMENTE PA-C Location:[facility] Appointment Type:URO Office Visit Diagnostic Tests Pending * Urine Culture 04/01/24 [facility] evaluation + Plan note Future Appointments Appointment Date:04/22/2024 11:20:00 AM Scheduled Provider:BERNICE CLEMENTE PA-C Location:[facility] Appointment Type:URO Office Visit [facility] evaluation + Plan note Future Appointments Appointment Date:08/05/2024 03:00:00 PM Scheduled Provider:BERNICE CLEMENTE PA-C Location:[facility] Appointment Type:URO Office Visit [facility] evaluation + Plan note Future Appointments Appointment Date:08/05/2024 03:00:00 PM Scheduled Provider:BERNICE CLEMENTE PA-C Location:[facility] Appointment Type:URO Office Visit Diagnostic Tests Pending * Urine Culture 06/30/24 [facility] Evaluation + Plan note Future Appointments Appointment Date:08/17/2024 09:00:00 AM Scheduled Provider: Location:[facility] Appointment Type:Urology CALL PAT FT Appointment Date:08/18/2024 09:00:00 AM Scheduled Provider: Location:[facility] Appointment Type:Urology FT [facility] Evaluation + Plan note Future Appointments Appointment Date:09/02/2024 12:30:00 PM Scheduled Provider: Location:[facility] Appointment Type:Urology CALL PAT FT Appointment Date:09/03/2024 09:00:00 AM Scheduled Provider: [facility] Appointment Type:Urology FT [facility] Evaluation + Plan note Future Appointments Appointment Date:09/18/2024 04:00:00 PM Scheduled Provider: Location:[facility] Appointment Type:Urology CALL PAT FT Appointment Date:09/22/2024 09:45:00 AM Scheduled Provider: [facility] Appointment Type:Urology FT Appointment Date:10/08/2024 09:00:00 AM Scheduled Provider:MITRA Quintero APRN, [place] Location:[facility] Appointment Type:URO Office Visit [facility] Evaluation + Plan note Future Appointments Appointment Date:02/01/2025 08:00:00 AM Scheduled Provider:MITRA Quintero APRN, [place] Location:[facility] [place] Appointment Type:URO Office Visit [facility] evaluation noteNo assessment information available [facility] Work Phone: evaluation noteNo [employer] Other evaluation note* Diagnosis Onset Date Resolution Status JASEN (acute kidney injury) acuteAMS (altered mental status)acuteImpaired mobility and activities of daily livingacuteSymptomatic bradycardiaacute [facility] Work Phone: Evaluation note* Diagnosis Onset Date Resolution Status JASEN (acute kidney injury) acuteAMS (altered mental status)acuteImpaired mobility and activities of daily livingacuteSymptomatic bradycardiaacuteH/O traumatic brain injurychronicHLD (hyperlipidemia)chronicHTN, goal below 140/90chronic [facility] Work Phone: evaluation note* Diagnosis Anxiety and depression (CMS/HCC)- Primary [facility] in [facility] encounter [facility]* Diagnosis Onset Date Resolution Status Carotid stenosis acuteCarotid stenosisacute [facility] Work Phone: evaluation note* Diagnosis Onset Date Resolution Status Carotid stenosis acuteCarotid stenosisacuteUTI (urinary tract infection)noneactiveContact with or exposure to viral diseasenoneactive [facility] Work Phone: Evaluation note* Diagnosis Onset Date Resolution Status UTI (urinary tract infection) noneactiveContact with or exposure to viral diseasenoneactive [facility] Work Phone: Evaluation note* Diagnosis Onset Date Resolution Status UTI (urinary tract infection) noneactiveContact with or exposure to viral diseasenoneactiveInternal carotid artery stent presentacute [facility] Work Phone: evaluation note* Diagnosis Urinary [...] mechanism (CMS/HCC) Atherosclerosis of coronary artery of [place] heart, unspecified vessel or lesion type, unspecified [...] mechanism (CMS/HCC) Atherosclerosis of coronary artery of [place] heart, unspecified vessel or lesion type, unspecified [...] and depression (CMS/HCC) documented in [facility] encounter [facility]* Diagnosis URTI (acute upper [...] mechanism (CMS/HCC) Atherosclerosis of coronary artery of [place] heart, unspecified vessel or lesion type, unspecified [...] of ischemic stroke documented in this encounter [facility]* Diagnosis Acute cystitis without [...] mechanism (CMS/HCC) Atherosclerosis of coronary artery of [place] heart, unspecified vessel or lesion type, unspecified whether angina present (CMS/HCC) Primary hypertension ([facility]) Unspecified essential hypertension Stenosis of right carotid [...] disease, unspecified Atherosclerosis of coronary artery of [place] heart, unspecified vessel or lesion type, unspecified whether angina present ([facility]/HCC) Stenosis of right carotid artery Occlusion and stenosis of carotid artery without mention of cerebral infarction Recurrent major depressive disorder, in full remission ([facility]) Cerebrovascular accident (CVA), unspecified mechanism (CMS/HCC) Muscle spasm Spasm of muscle Iron deficiency Disorders of iron metabolism Psychophysiological insomnia Persistent disorder of initiating or maintaining sleep Migraine with aura and without status migrainosus, not intractable (CMS/HCC) CRYSTAL (generalized anxiety disorder) ([facility]) Generalized anxiety disorder UTI symptoms Anxiety and depression ([facility]) Overflow incontinence of urine Overflow incontinence Chronic [...] phase Dysarthria Cerebrovascular accident (CVA), unspecified mechanism ([facility]/HCC) Atherosclerosis of coronary artery of [place] heart, unspecified vessel or lesion type, unspecified whether angina present ([facility]/HCC) Primary hypertension ([facility]) Unspecified essential hypertension Stenosis of right carotid artery Occlusion and stenosis of carotid artery without mention of cerebral infarction Mixed hyperlipidemia ([facility]) Mixed hyperlipidemia Dizziness and giddiness Impaired mobility and activities of daily living Migraine with aura and without status migrainosus, not intractable (CMS/HCC) Muscle spasm Spasm of muscle Anxiety and depression ([facility]) Iron deficiency Disorders of iron metabolism Psychophysiological insomnia Persistent disorder of initiating or maintaining sleep Primary hypertension ([facility])- Primary Unspecified essential hypertension Heart failure, unspecified ([facility]) Heart failure, unspecified Peripheral vascular disease, unspecified ([facility]) Peripheral vascular disease, unspecified Atherosclerosis of coronary artery of [place] heart, unspecified vessel or lesion type, unspecified whether angina present ([facility]) Stenosis of right carotid artery Occlusion and stenosis of carotid artery without mention of cerebral infarction Recurrent major depressive disorder, in full remission ([facility]) Cerebrovascular accident (CVA), unspecified mechanism ([facility]) Muscle spasm Spasm of muscle Iron deficiency Disorders of iron metabolism Psychophysiological insomnia Persistent disorder of initiating or maintaining sleep Migraine with aura and without status migrainosus, not intractable ([facility]/HCC) CRYSTAL (generalized anxiety disorder) ([facility]) Generalized anxiety disorder UTI symptoms Anxiety and depression ([facility]) Overflow incontinence of urine Overflow incontinence Chronic UTI Urinary tract infection, site not specified Chronic UTI- Primary Urinary tract infection, site not specified documented [facility]* Diagnosis Cerebrovascular accident (CVA), unspecified mechanism ([facility]/HCC)- Primary Oropharyngeal dysphagia Dysphagia, oropharyngeal phase Dysarthria documented in [facility] encounter [facility]* Diagnosis Oropharyngeal dysphagia- Primary Dysphagia, oropharyngeal phase Dysarthria Cerebrovascular accident (CVA), unspecified mechanism ([facility]/HCC) Atherosclerosis of coronary artery of [place] heart, unspecified vessel or lesion type, unspecified whether angina present ([facility]) Primary hypertension ([facility]) Unspecified essential hypertension Stenosis of right carotid [...] mechanism (CMS/HCC) Atherosclerosis of coronary artery of [place] heart, unspecified vessel or lesion type, unspecified [...] disease, unspecified Atherosclerosis of coronary artery of [place] heart, unspecified vessel or lesion type, unspecified [...] not intractable (CMS/HCC) CRYSTAL (generalized anxiety disorder) ([facility]) Generalized anxiety disorder UTI symptoms Anxiety and depression ([facility]) Overflow incontinence of urine Overflow incontinence Chronic UTI Urinary tract infection, site not specified Chronic UTI- Primary Urinary tract infection, site not specified Cerebrovascular accident (CVA), unspecified mechanism (CMS/HCC)- Primary Dysarthria White matter disease Stenosis of carotid artery, unspecified laterality Peripheral vascular disease, unspecified ([facility]) Peripheral vascular disease, unspecified Overflow incontinence of urine Overflow incontinence Dizziness and giddiness documented in this encounter [facility] HealthcareEvaluation [facility]* Diagnosis Functional gait disorder- Primary Dizziness Dizziness and giddiness [facility] Diagnosis Dizzy- Primary Dizziness and giddiness 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 ([facility]) Dizziness Dizziness and giddiness documented in [facility] encounter [facility]* Diagnosis URTI (acute [...] oropharyngeal phase Dizziness and giddiness Primary hypertension ([facility])- Primary Unspecified essential hypertension Migraine with aura and without status migrainosus, not intractable ([facility]) Oropharyngeal dysphagia Dysphagia, oropharyngeal phase Oropharyngeal dysphagia- Primary Dysphagia, oropharyngeal phase Dysarthria Cerebrovascular accident (CVA), unspecified mechanism ([facility]) Atherosclerosis of coronary artery of [place] heart, unspecified vessel or lesion type, unspecified whether angina present ([facility]) Primary hypertension ([facility]) Unspecified essential hypertension Stenosis of right carotid artery Occlusion and stenosis of carotid artery without mention of cerebral infarction Mixed hyperlipidemia ([facility]) Mixed hyperlipidemia Dizziness and giddiness Impaired mobility and activities of daily living Migraine with aura and without status migrainosus, not intractable ([facility]/HCC) Muscle spasm Spasm of muscle Anxiety and depression ([facility]) Iron deficiency Disorders of iron metabolism Psychophysiological insomnia Persistent disorder of initiating or maintaining sleep Primary hypertension ([facility]/HCC)- Primary Unspecified essential hypertension Heart failure, unspecified ([facility]) Heart failure, unspecified Peripheral vascular disease, unspecified ([facility]) Peripheral vascular disease, unspecified Atherosclerosis of coronary artery of [place] heart, unspecified vessel or lesion type, unspecified whether angina present ([facility]) Stenosis of right carotid artery Occlusion and stenosis of carotid artery without mention of cerebral infarction Recurrent major depressive disorder, in full remission ([facility]) Cerebrovascular accident (CVA), unspecified mechanism ([facility]) Muscle spasm Spasm of muscle Iron deficiency Disorders of iron metabolism Psychophysiological insomnia Persistent disorder of initiating or maintaining sleep Migraine with aura and without status migrainosus, not intractable ([facility]) CRYSTAL (generalized anxiety disorder) ([facility]) Generalized anxiety disorder UTI symptoms Anxiety and depression ([facility]) Overflow incontinence of urine Overflow incontinence Chronic UTI Urinary tract infection, site not specified Impaired mobility and activities of daily living History of cerebrovascular accident (CVA) with residual deficit Chronic UTI- Primary Urinary tract infection, site not specified Primary hypertension ([facility])- Primary Unspecified essential hypertension Cerebrovascular accident (CVA), unspecified mechanism ([facility]) Dizziness and giddiness Overflow incontinence of urine Overflow incontinence CRYSTAL (generalized anxiety disorder) ([facility]) Generalized anxiety disorder Impaired mobility and activities [...] oropharyngeal phase Dizziness and giddiness Primary hypertension ([facility]/HCC)- Primary Unspecified essential hypertension Migraine with aura and without status migrainosus, not intractable ([facility]) Oropharyngeal dysphagia Dysphagia, oropharyngeal phase Oropharyngeal dysphagia- Primary Dysphagia, oropharyngeal phase Dysarthria Cerebrovascular accident (CVA), unspecified mechanism ([facility]/HCC) Atherosclerosis of coronary artery of [place] heart, unspecified vessel or lesion type, unspecified whether angina present ([facility]) Primary hypertension ([facility]) Unspecified essential hypertension Stenosis of right carotid artery Occlusion and stenosis of carotid artery without mention of cerebral infarction Mixed hyperlipidemia ([facility]) Mixed hyperlipidemia Dizziness and giddiness Impaired mobility and activities of daily living Migraine with aura and without status migrainosus, not intractable ([facility]/HCC) Muscle spasm Spasm of muscle Anxiety and depression ([facility]/HCC) Iron deficiency Disorders of iron metabolism Psychophysiological insomnia Persistent disorder of initiating or maintaining sleep Primary hypertension ([facility]/HCC)- Primary Unspecified essential hypertension Heart failure, unspecified (CMS/HCC) Heart failure, unspecified Peripheral vascular disease, unspecified ([facility]) Peripheral vascular disease, unspecified Atherosclerosis of coronary artery of [place] heart, unspecified vessel or lesion type, unspecified whether angina present ([facility]) Stenosis of right carotid artery Occlusion and stenosis of carotid artery without mention of cerebral infarction Recurrent major depressive disorder, in full remission ([facility]) Cerebrovascular accident (CVA), unspecified mechanism ([facility]) Muscle spasm Spasm of muscle Iron deficiency Disorders of iron metabolism Psychophysiological insomnia Persistent disorder of initiating or maintaining sleep Migraine with aura and without status migrainosus, not intractable ([facility]/HCC) CRYSTAL (generalized anxiety disorder) ([facility]) Generalized anxiety disorder UTI symptoms Anxiety and depression ([facility]) Overflow incontinence of urine Overflow incontinence Chronic UTI Urinary tract infection, site not specified Impaired mobility and activities of daily living History of cerebrovascular accident (CVA) with residual deficit Chronic UTI- Primary Urinary tract infection, site not specified Primary hypertension ([facility]/HCC)- Primary Unspecified essential hypertension Cerebrovascular accident (CVA), unspecified mechanism ([facility]CC) Dizziness and giddiness Overflow incontinence of urine Overflow incontinence CRYSTAL (generalized anxiety disorder) ([facility]) Generalized anxiety disorder Impaired mobility and activities [...] phase Dysarthria Cerebrovascular accident (CVA), unspecified mechanism ([facility]/HCC) Atherosclerosis of coronary artery of [place] heart, unspecified vessel or lesion type, unspecified whether angina present ([facility]) Primary hypertension ([facility]) Unspecified essential hypertension Stenosis of right carotid artery Occlusion and stenosis of carotid artery without mention of cerebral infarction Mixed hyperlipidemia ([facility]) Mixed hyperlipidemia Dizziness and giddiness Impaired mobility and activities of daily living Migraine with aura and without status migrainosus, not intractable ([facility]) Muscle spasm Spasm of muscle Anxiety and depression ([facility]) Iron deficiency Disorders of iron metabolism Psychophysiological insomnia Persistent disorder of initiating or maintaining sleep Primary hypertension ([facility])- Primary Unspecified essential hypertension Heart failure, unspecified ([facility]) Heart failure, unspecified Peripheral vascular disease, unspecified ([facility]) Peripheral vascular disease, unspecified Atherosclerosis of coronary artery of [place] heart, unspecified vessel or lesion type, unspecified whether angina present ([facility]) Stenosis of right carotid artery Occlusion and stenosis of carotid artery without mention of cerebral infarction Recurrent major depressive disorder, in full remission ([facility]) Cerebrovascular accident (CVA), unspecified mechanism ([facility]) Muscle spasm Spasm of muscle Iron deficiency Disorders of iron metabolism Psychophysiological insomnia Persistent disorder of initiating or maintaining sleep Migraine with aura and without status migrainosus, not intractable ([facility]) CRYSTAL (generalized anxiety disorder) ([facility]) Generalized anxiety disorder UTI symptoms Anxiety and depression ([facility]) Overflow incontinence of urine Overflow incontinence Chronic UTI Urinary tract infection, site not specified Impaired mobility and activities of daily living History of cerebrovascular accident (CVA) with residual deficit Chronic UTI- Primary Urinary tract infection, site not specified Primary hypertension ([facility]/HCC)- Primary Unspecified essential hypertension Cerebrovascular accident (CVA), unspecified mechanism ([facility]) Dizziness and giddiness Overflow incontinence of urine Overflow incontinence CRYSTAL (generalized anxiety disorder) ([facility]) Generalized anxiety disorder Impaired mobility and activities [...] oropharyngeal phase Dizziness and giddiness Primary hypertension ([facility]/HCC)- Primary Unspecified essential hypertension Migraine with aura and without status migrainosus, not intractable ([facility]/HCC) Oropharyngeal dysphagia Dysphagia, oropharyngeal phase Oropharyngeal dysphagia- Primary Dysphagia, oropharyngeal phase Dysarthria Cerebrovascular accident (CVA), unspecified mechanism (CMS/HCC) Atherosclerosis of coronary artery of [place] heart, unspecified vessel or lesion type, unspecified whether angina present (CMS/HCC) Primary hypertension ([facility]) Unspecified essential hypertension Stenosis of right carotid artery Occlusion and stenosis of carotid artery without mention of cerebral infarction Mixed hyperlipidemia ([facility]) Mixed hyperlipidemia Dizziness and giddiness Impaired mobility and activities of daily living Migraine with aura and without status migrainosus, not intractable ([facility]) Muscle spasm Spasm of muscle Anxiety and depression ([facility]) Iron deficiency Disorders of iron metabolism Psychophysiological insomnia Persistent disorder of initiating or maintaining sleep Primary hypertension ([facility]/HCC)- Primary Unspecified essential hypertension Heart failure, unspecified (CMS/HCC) Heart failure, unspecified Peripheral vascular disease, unspecified ([facility]) Peripheral vascular disease, unspecified Atherosclerosis of coronary artery of [place] heart, unspecified vessel or lesion type, unspecified whether angina present ([facility]) Stenosis of right carotid artery Occlusion and stenosis of carotid artery without mention of cerebral infarction Recurrent major depressive disorder, in full remission ([facility]) Cerebrovascular accident (CVA), unspecified mechanism ([facility]) Muscle spasm Spasm of muscle Iron deficiency Disorders of iron metabolism Psychophysiological insomnia Persistent disorder of initiating or maintaining sleep Migraine with aura and without status migrainosus, not intractable (CMS/HCC) CRYSTAL (generalized anxiety disorder) ([facility]) Generalized anxiety disorder UTI symptoms Anxiety and depression ([facility]) Overflow incontinence of urine Overflow incontinence Chronic UTI Urinary tract infection, site not specified Impaired mobility and activities of daily living History of cerebrovascular accident (CVA) with residual deficit Chronic UTI- Primary Urinary tract infection, site not specified Primary hypertension ([facility]/HCC)- Primary Unspecified essential hypertension Cerebrovascular accident (CVA), unspecified mechanism ([facility]) Dizziness and giddiness Overflow incontinence of urine Overflow incontinence CRYSTAL (generalized anxiety disorder) ([facility]/HCC) Generalized anxiety disorder Impaired mobility and activities [...] oropharyngeal phase Dizziness and giddiness Primary hypertension ([facility]/HCC)- Primary Unspecified essential hypertension Migraine with aura and without status migrainosus, not intractable ([facility]) Oropharyngeal dysphagia Dysphagia, oropharyngeal phase Oropharyngeal dysphagia- Primary Dysphagia, oropharyngeal phase Dysarthria Cerebrovascular accident (CVA), unspecified mechanism ([facility]) Atherosclerosis of coronary artery of [place] heart, unspecified vessel or lesion type, unspecified whether angina present ([facility]) Primary hypertension ([facility]) Unspecified essential hypertension Stenosis of right carotid artery Occlusion and stenosis of carotid artery without mention of cerebral infarction Mixed hyperlipidemia ([facility]) Mixed hyperlipidemia Dizziness and giddiness Impaired mobility and activities of daily living Migraine with aura and without status migrainosus, not intractable ([facility]) Muscle spasm Spasm of muscle Anxiety and depression ([facility]) Iron deficiency Disorders of iron metabolism Psychophysiological insomnia Persistent disorder of initiating or maintaining sleep Primary hypertension ([facility])- Primary Unspecified essential hypertension Heart failure, unspecified (CMS/HCC) Heart failure, unspecified Peripheral vascular disease, unspecified ([facility]) Peripheral vascular disease, unspecified Atherosclerosis of coronary artery of [place] heart, unspecified vessel or lesion type, unspecified whether angina present ([facility]) Stenosis of right carotid artery Occlusion and stenosis of carotid artery without mention of cerebral infarction Recurrent major depressive disorder, in full remission ([facility]) Cerebrovascular accident (CVA), unspecified mechanism ([facility]/HCC) Muscle spasm Spasm of muscle Iron deficiency Disorders of iron metabolism Psychophysiological insomnia Persistent disorder of initiating or maintaining sleep Migraine with aura and without status migrainosus, not intractable (CMS/HCC) CRYSTAL (generalized anxiety disorder) ([facility]) Generalized anxiety disorder UTI symptoms Anxiety and [...] urine Overflow incontinence CRYSTAL (generalized anxiety disorder) ([facility]/HCC) Generalized anxiety disorder Impaired mobility and activities [...] oropharyngeal phase Dizziness and giddiness Primary hypertension ([facility]/HCC)- Primary Unspecified essential hypertension Migraine with aura and without status migrainosus, not intractable ([facility]/HCC) Oropharyngeal dysphagia Dysphagia, oropharyngeal phase Oropharyngeal dysphagia- Primary Dysphagia, oropharyngeal phase Dysarthria Cerebrovascular accident (CVA), unspecified mechanism (CMS/HCC) Atherosclerosis of coronary artery of [place] heart, unspecified vessel or lesion type, unspecified whether angina present ([facility]) Primary hypertension ([facility]) Unspecified essential hypertension Stenosis of right carotid artery Occlusion and stenosis of carotid artery without mention of cerebral infarction Mixed hyperlipidemia (CMS/HCC) Mixed hyperlipidemia Dizziness and giddiness Impaired mobility and activities of daily living Migraine with aura and without status migrainosus, not intractable (CMS/HCC) Muscle spasm Spasm of muscle Anxiety and depression ([facility]/HCC) Iron deficiency Disorders of iron metabolism Psychophysiological insomnia Persistent disorder of initiating or maintaining sleep Primary hypertension (CMS/HCC)- Primary Unspecified essential hypertension Heart failure, unspecified (CMS/HCC) Heart failure, unspecified Peripheral vascular disease, unspecified (CMS/HCC) Peripheral vascular disease, unspecified Atherosclerosis of coronary artery of [place] heart, unspecified vessel or lesion type, unspecified whether angina present ([facility]) Stenosis of right carotid artery Occlusion and stenosis of carotid artery without mention of cerebral infarction Recurrent major depressive disorder, in full remission ([facility]) Cerebrovascular accident (CVA), unspecified mechanism ([facility]) Muscle spasm Spasm of muscle Iron deficiency Disorders of iron metabolism Psychophysiological insomnia Persistent disorder of initiating or maintaining sleep Migraine with aura and without status migrainosus, not intractable ([facility]/HCC) CRYSTAL (generalized anxiety disorder) ([facility]) Generalized anxiety disorder UTI symptoms Anxiety and depression ([facility]) Overflow incontinence of urine Overflow incontinence Chronic UTI Urinary tract infection, site not specified Impaired mobility and activities of daily living History of cerebrovascular accident (CVA) with residual deficit Chronic UTI- Primary Urinary tract infection, site not specified Primary hypertension ([facility])- Primary Unspecified essential hypertension Cerebrovascular accident (CVA), unspecified mechanism ([facility]) Dizziness and giddiness Overflow incontinence of urine Overflow incontinence CRYSTAL (generalized anxiety disorder) ([facility]) Generalized anxiety disorder Impaired mobility and activities of daily living Acute diffuse otitis externa of both ears- Primary Chronic UTI- Primary Urinary tract infection, site not specified Anxiety and depression ([facility]) Overflow incontinence of urine Overflow incontinence documented [...] oropharyngeal phase Dizziness and giddiness Primary hypertension ([facility]/HCC)- Primary Unspecified essential hypertension Migraine with aura and without status migrainosus, not intractable ([facility]) Oropharyngeal dysphagia Dysphagia, oropharyngeal phase Oropharyngeal dysphagia- Primary Dysphagia, oropharyngeal phase Dysarthria Cerebrovascular accident (CVA), unspecified mechanism ([facility]) Atherosclerosis of coronary artery of [place] heart, unspecified vessel or lesion type, unspecified whether angina present ([facility]) Primary hypertension ([facility]) Unspecified essential hypertension Stenosis of right carotid [...] disease, unspecified Atherosclerosis of coronary artery of [place] heart, unspecified vessel or lesion type, unspecified [...] not intractable (CMS/HCC) CRYSTAL (generalized anxiety disorder) ([facility]) Generalized anxiety disorder UTI symptoms Anxiety and depression ([facility]) Overflow incontinence of urine Overflow incontinence Chronic UTI Urinary tract infection, site not specified Impaired mobility and activities of daily living History of cerebrovascular accident (CVA) with residual deficit Chronic UTI- Primary Urinary tract infection, site not specified Primary hypertension ([facility]/HCC)- Primary Unspecified essential hypertension Cerebrovascular accident (CVA), unspecified mechanism ([facility]/HCC) Dizziness and giddiness Overflow incontinence of urine Overflow incontinence CRYSTAL (generalized anxiety disorder) ([facility]/HCC) Generalized anxiety disorder Impaired mobility and activities of daily living Acute diffuse otitis externa of both ears- Primary Primary progressive aphasia (CMS/HCC)- Primary Ataxia Lack of coordination Memory difficulty Memory loss History of ischemic stroke Other insomnia DULCE MARIA (obstructive sleep apnea) Obstructive sleep apnea (adult) (pediatric) Severe episode of recurrent major depressive disorder, without psychotic features (HCC) ([facility]) Severe anxiety documented in this encounter NOMS [...] mechanism (HCC) Atherosclerosis of coronary artery of [place] heart, unspecified vessel or lesion type, unspecified [...] disease, unspecified Atherosclerosis of coronary artery of [place] heart, unspecified vessel or lesion type, unspecified [...] essential hypertension Atherosclerosis of coronary artery of [place] heart, unspecified vessel or lesion type, unspecified [...] mechanism (HCC) Atherosclerosis of coronary artery of [place] heart, unspecified vessel or lesion type, unspecified [...] disease, unspecified Atherosclerosis of coronary artery of [place] heart, unspecified vessel or lesion type, unspecified [...] essential hypertension Atherosclerosis of coronary artery of [place] heart, unspecified vessel or lesion type, unspecified [...] maintaining sleep Atherosclerosis of coronary artery of [place] heart, unspecified vessel or lesion type, unspecified [...] mechanism (HCC) Atherosclerosis of coronary artery of [place] heart, unspecified vessel or lesion type, unspecified [...] disease, unspecified Atherosclerosis of coronary artery of [place] heart, unspecified vessel or lesion type, unspecified [...] essential hypertension Atherosclerosis of coronary artery of [place] heart, unspecified vessel or lesion type, unspecified [...] mechanism (HCC) Atherosclerosis of coronary artery of [place] heart, unspecified vessel or lesion type, unspecified [...] disease, unspecified Atherosclerosis of coronary artery of [place] heart, unspecified vessel or lesion type, unspecified [...] essential hypertension Atherosclerosis of coronary artery of [place] heart, unspecified vessel or lesion type, unspecified whether angina present CRYSTAL (generalized anxiety disorder) Generalized anxiety disorder Recurrent major depressive disorder, in full remission Episode of recurrent major depressive disorder, unspecified depression episode severity Overflow incontinence of urine Overflow incontinence Psychophysiological insomnia Persistent disorder of initiating or maintaining sleep Peripheral vascular disease, unspecified- Primary Atherosclerosis of coronary artery of [place] heart, unspecified vessel or lesion type, unspecified [...] mechanism (HCC) Atherosclerosis of coronary artery of [place] heart, unspecified vessel or lesion type, unspecified [...] disease, unspecified Atherosclerosis of coronary artery of [place] heart, unspecified vessel or lesion type, unspecified [...] essential hypertension Atherosclerosis of coronary artery of [place] heart, unspecified vessel or lesion type, unspecified [...] mechanism (HCC) Atherosclerosis of coronary artery of [place] heart, unspecified vessel or lesion type, unspecified [...] disease, unspecified Atherosclerosis of coronary artery of [place] heart, unspecified vessel or lesion type, unspecified [...] essential hypertension Atherosclerosis of coronary artery of [place] heart, unspecified vessel or lesion type, unspecified [...] mechanism (HCC) Atherosclerosis of coronary artery of [place] heart, unspecified vessel or lesion type, unspecified [...] disease, unspecified Atherosclerosis of coronary artery of [place] heart, unspecified vessel or lesion type, unspecified [...] essential hypertension Atherosclerosis of coronary artery of [place] heart, unspecified vessel or lesion type, unspecified [...] without status migrainosus, not intractableacuteOctober 2024 9:05am [facility] Work Phone: History general Narrative - Reported* Type Description Date Medical History DVT Medical Historyleft MCA strokeMedical Historyaphasia due to CVAMedical History anemiaMedical HistoryHTNMedical HistoryhyperlipidemiaMedical Historydystonia Medical HistorydysphagiaMedical Historytraumatic brain injuryMedical Historyleft lower leg CellulitisSurgical HistorytonsillectomySurgical Historycholecystectomy Surgical HistoryappendectomySurgical Historyknee replacement X 5 rightSurgical Historyknee surgery leftSurgical Historybreast duct removal leftSurgical History Right CEA with patch angioplasty04/06/20Hospitalization HistoryCV Hospitalization HistorychildbirthHospitalization HistoryX2 [id number] [facility] general Narrative - Reported* Type Description Date [...] [facility] [facility],03/2021 Hospitalization HistoryCVHospitalization HistorychildbirthHospitalization HistoryX2 [id number] [facility] Other Hospital Discharge instructions Additional Instructions Please call and schedule an appointment with your established Environmental Aide. We attempted to make this appointment for you but the office was currently unavailable.[facility] Work Phone: Hospital Discharge instructions No data available for this section [facility]ructionsNot on filedocumented in this encounter [facility]Not on filedocumented in this encounter [facility]InstructionsNot on filedocumented in this encounter [facility]ructionsNot on filedocumented in this encounter [facility]InstructionsNot on filedocumented in this encounter [facility] SystemInstructionsNot on filedocumented in this encounter [facility] SystemProgress note No data available for this section [facility] Reason for referral (narrative)* Consultation (Routine) - Pending ReviewSpecialtyDiagnoses / ProceduresReferred By ContactReferred To ContactSpeech Pathology Diagnoses Cerebrovascular accident (CVA), unspecified mechanism (CMS/HCC) Oropharyngeal dysphagia Dysarthria Procedures NE OFFICE/OUTPATIENT NEW HIGH MDM 60 MINUTES Cindy Collado NP [address] [place] [address] Referral IDStatusReasonStart DateExpiration DateVisits RequestedVisits [id number] Review Specialty Services Required / [facility] (narrative)* Consultation (Routine) - Pending ReviewSpecialtyDiagnoses / ProceduresReferred By ContactReferred To Contact Neurology Diagnoses Cerebrovascular accident (CVA), unspecified mechanism (CMS/HCC) Dizziness and giddiness Impaired mobility and activities of daily living Migraine with aura and without status migrainosus, not intractable (CMS/HCC) Procedures NE OFFICE/OUTPATIENT NEW HIGH MDM 60 MINUTES Cindy Collado NP [address] [place] [address] Nakul Zazueta DO [address] [place] [address] Referral IDStatusReasonStart DateExpiration DateVisits RequestedVisits [id number] Review Specialty Services Required / * Consultation (Urgent) - Pending ReviewSpecialtyDiagnoses / ProceduresReferred By ContactReferred To ContactOtolaryngology Diagnoses Oropharyngeal dysphagia Procedures NE OFFICE/OUTPATIENT NEW HIGH MDM 60 MINUTES Cindy Collado, SANDRA [address] [facility] [place] [address] Aime Clark, DO [address] [place] [address] Referral IDStatusReasonStart DateExpiration DateVisits RequestedVisits [id number] Review Specialty Services Required / [facility] (narrative)* Consultation (Routine) - Pending ReviewSpecialtyDiagnoses / ProceduresReferred By ContactReferred To Contact Neurology Diagnoses Rabia Hunt PA-C [address] [place] [address] [address] [place] [address] Martin Arita MD [address] [place] [address], [address], [address], [address] [place] [address] Referral IDStatusReasonStart DateExpiration DateVisits RequestedVisits [id number] Review Specialty Services Required / [facility] (narrative)No reason for referral information available[facility] Work Phone: Reason for visit Narrative* Consultation (Routine) - Pending ReviewSpecialtyDiagnoses / ProceduresReferred By ContactReferred To ContactNeurology Diagnoses Rabia Hunt PA-C [address] [place] [address] [address] [place] [address] Martin Arita MD [address] [place] [address], [address], [address], [address] [place] [address] Referral IDStatusReasonStart DateExpiration DateVisits RequestedVisits [id number] Review Specialty Services Required / [facility] HospitalReason for visit Narrative* Consultation (Routine) - ClosedSpecialtyDiagnoses / ProceduresReferred By ContactReferred To Contact Neuropsychology Diagnoses Expressive aphasia Memory difficulty History of ischemic stroke Procedures NE OFFICE/OUTPATIENT [facility] 60 MINUTES Jameson Mcleod NP [address] [place] [address] Phone: tel: Chaim Hare, PhD [address] [place] [phone] Phone: tel: fax: Referral IDStatusReasonStart DateExpiration DateVisits RequestedVisits [id number] Specialty Services Required / [facility] Healthcare Summary Purpose Family History No [...] Referral SpecialtyDiagnoses / ProceduresReferred By ContactReferred To [facility] Diagnoses Dizzy Functional gait disorder Martin Arita MD [facility] [address] [place], [address], [address], [address] [place] [address] [facility] [address] [place] [address] Phone: [phone] Fax: [phone] Referral IDStatusReasonStart DateExpiration DateVisits RequestedVisits [id number] Review Additional Source Comments INFORMATION SOURCE (unrecogn ized section and content) DATE CREATED AUTHOR 03/09/2020 [facility] DATE CREATED AUTHOR AUTHOR'S ORGANIZ ATION 12/03/2021 [facility] DATE CREATED AUTHOR AUTHOR'S ORGANIZ ATION 02/28/2022 [facility] DATE CREATED AUTHOR AUTHOR'S ORGANIZ ATION 05/13/2023 [facility] DATE CREATED AUTHOR AUTHOR'S ORGANIZ ATION 07/04/2023 [facility] DATE CREATED AUTHOR AUTHOR'S ORGANIZ ATION 07/16/2023 [facility] DATE CREATED AUTHOR AUTHOR'S ORGANIZ ATION 07/18/2023 [facility] DATE CREATED AUTHOR AUTHOR'S ORGANIZ ATION 02/26/2024 [facility] DATE CREATED AUTHOR AUTHOR'S ORGANIZ ATION 04/05/2024 [facility] DATE CREATED AUTHOR AUTHOR'S ORGANIZ ATION 04/17/2024 [facility] DATE CREATED AUTHOR AUTHOR'S ORGANIZ ATION 05/06/2024 [facility] DATE CREATED AUTHOR AUTHOR'S ORGANIZ ATION 05/08/2024 [facility] DATE CREATED AUTHOR AUTHOR'S ORGANIZ ATION 07/01/2024 [facility] DATE CREATED AUTHOR AUTHOR'S ORGANIZ ATION 07/09/2024 [facility] DATE CREATED AUTHOR AUTHOR'S ORGANIZ ATION 07/24/2024 [facility] DATE CREATED AUTHOR AUTHOR'S ORGANIZ ATION 08/07/2024 [facility] DATE CREATED AUTHOR AUTHOR'S ORGANIZ ATION 08/12/2024 [facility] DATE CREATED AUTHOR AUTHOR'S ORGANIZ ATION 09/19/2024 [facility] DATE CREATED AUTHOR AUTHOR'S ORGANIZ ATION 10/10/2024 [facility] DATE CREATED AUTHOR AUTHOR'S ORGANIZ ATION 11/19/2024 [facility] DATE CREATED AUTHOR AUTHOR'S ORGANIZ ATION 11/25/2024 [facility] DATE CREATED AUTHOR AUTHOR'S ORGANIZ ATION 11/26/2024 [facility] DATE CREATED AUTHOR AUTHOR'S ORGANIZ ATION 12/24/2024 [facility] REASON FOR VISIT (unrecogniz ed section and content) ReasonCommentsOropharyngeal DysphagiaNew Patient : Oropharyngeal Dysphagia SpecialtyDiagnoses / ProceduresReferred By ContactReferred To Contact Otolaryngology Diagnoses Oropharyngeal dysphagia Procedures NE OFFICE/OUTPATIENT [facility] 60 MINUTES Cindy Collado, SANDRA [address] [place] [address] Phone: tel: fax: Aime Clark, DO [address] [place] [address] Phone: tel: fax: Referral IDStatusReasonStart DateExpiration DateVisits RequestedVisits [id number] Specialty Services Required /[id number] DateCommentsMed Llnqzt454ReasonComments Oropharyngeal dysphagiaReasonOnset AofvMlemkyewlkqttfqeo96/14/2023ReasonOnset DateCommentsoffice notes4ReasonOnset DateCommentsNEW PATIENT REFERRAL 4ReasonOnset DateCommentsSooner Appt4ReasonOnset DateComments Leovbauajag46/22/2024ReasonCommentsHypertensionReasonCommentsBalance difficulty Memory LossReasonOnset DateCommentsMed Yhorgr6808/12/2024ReasonOnset DateComments Med Jngbys5909/28/2024 Care Teams (unrecognized sec tion and content) [...] Start DateEnd Shaikh Love MD [facility]22 Team Status: Inactive Member Role Status [...] Active Start: August 08, 2023 Felicita Sumner TIN RECOVERY WORKER-CAttending ProviderActiveStart: August 08, 2023 Team Status: Inactive Member Role Status Dates Shaikh Barb MD Primary Care Provider Active Start: August 08, 2023 End: August 08, 2023Felicita Sumner TIN RECOVERY WORKER-CAttending ProviderActiveStart: August 08, 2023 End: August 08, 2023Team MemberRelationshipSpecialtyStart DateEnd Date Gerry Godwin MD [address] [place] [address] PCP - GeneralFamily Medicine10/03/23 Shaikh Day MD [address] [place] [address] PCP - Lilly OR10/13/23 Cindy Collado NP [address] [place] [address] Nurse PractitionerFamily Medicine10/03/23Team MemberRelationshipSpecialtyStart DateEnd Date Gerry Godwin MD [address] [place] [address] P[facility] - [facility]10/03/23 Shaikh Day MD [address] [place] [address] PCP - Lilly [place]10/13/23 Cindy Collado, SANDRA [address] [place] [address] Nurse Pract[facility]er[facility]10/03/23Team MemberRelationshipSpecialtyStart DateEnd Date Gerry Godwin MD [address] [place] [address] PCP - [facility]10/03/23 Shaikh Day MD [address] [place] [address] PCP - Lilly OR10/13/23 Cindy Collado, TIN RECOVERY WORKER [address] [place] [address] Nurse PractitionerWal[facility] Medicine10/03/23 Aime Clark DO [address] [place] [address] Mzvylvtybvnjmd01/21/24Team MemberRelationshipSpecialtyStart DateEnd Date eGrry Godwin MD [address] [place] [address] PCP - GeneralFamily Medicine10/03/23 Shaikh Day MD [address] [place] [address] PCP - Donald OR10/13/23 Cindy Collado, TIN RECOVERY WORKER [address] [place] [address] Nurse PractitionerFamily Medicine10/03/23 Aime Clark DO [address] [place] [address] Darysajehaaffb61/21/24Team MemberRelationshipSpecialtyStart DateEnd Date Gerry Godwin MD [address] [place] [address] PCP - [facility] Medicine10/03/23 Shaikh Day MD [address] [place] [address] PCP - Donald OR10/13/23 Cindy Collado, TIN RECOVERY WORKER [address] [place] [address] Nurse PractitionerWal[facility] Medicine10/03/23 Aime Clark DO [address] [place] [address] Ltzqwfctzbzqfr35/21/24Team MemberRelationshipSpecialtyStart DateEnd Date Fawwad, Kam, MD [address] [place] [address] PCP - Donald ZARCO10/13/23 Unallocated, Nomsvitlana Nichole MD [address] [place] [address] PCP - GeneralFamily Kqpahsrj21/22/24 Cindy Collado NP [address] [place] [address] Nurse PractitionerFami Medicine10/03/23 Aime Clark DO [address] [facility] [place] [address] Xskxnptysotwva80/21/24 Nakul Zazueta DO [address] [address] Referring XovawmlgjBpjzazblh46/28/24 Ynes Snyder NP [address] [address] Nurse ZfdcgbpmtslnRaueelorz91/28/24 Jameson Mcleod NP [address] [address] Nurse XyxotieopwsgFcmwvugah84/28/24 Team Status: Inactive Member Role Status Dates Shaikh Barb MD Primary Care Provider Active Start: December 12, 2023 End: December 11abilio Clark DOAttending ProviderActiveStart: December 12, 2023 End: December 12, 2023Team MemberRelationshipSpecialtyStart DateEnd Date Gerry Godwin MD [address] [place] [address] PCP - GeneralFaokly [facility]10/03/23 Cindy Collado, SANDRA [address] [place] [address] Nurse PractitionerSouth [facility]10/03/23Team MemberRelationshipSpecialtyStart DateEnd Date Gerry Godwin MD [address] [place] [address] PCP - [facility]10/03/23 Cindy Collado, SANDRA [address] [place] [address] Nurse PractitionerSouth [facility]10/03/23Team MemberRelationshipSpecialtyStart DateEnd Date Gerry Godwin MD [address] [place] [address] PCP - [facility]10/03/23 Cindy Collado, SANDRA [address] [place] [address] Nurse PractitionerSouth [facility]10/03/23Team MemberRelationshipSpecialtyStart DateEnd Date Shaikh Day MD [address] [place] [address] PCP - Lilly OR10/13/23 Grery Godwin MD [address] [place] [address] PCP - GeneralFaokly Hsjcgdol91/31/24 Cindy Collado NP [address] [place] [address] Nurse PractitionerFamily Medicine10/03/23 Aime Clark DO [address] [place], [place] [address] Rwuhhhygrkitln89/21/24 Nakul Zazueta DO [address] [address] Referring IgdmygquaDkjvtcdhx69/28/24 Ynes Snyder NP [address] [address] Nurse OecsckzfibdlUgjjgqomg82/28/24 Jameson Mcleod NP [address] [address] Nurse WznvchzhydmiQorxsgsjp29/28/24Team MemberRelationshipSpecialtyStart DateEnd Date Shaikh Day MD [address] [place] [address] PCP - [facility]10/13/23 Gerry Godwin MD [address] [place] [address] PCP - GeneralFamily Cewupvuu38/31/24 Cindy Collado, TIN RECOVERY WORKER [address] [place] [address] Nurse PractitionerFamily Medicine10/03/23 Aime Clark DO [address] [facility] [place] [address] Qzzdxzzevxrbzi51/21/24 Nakul Zazueta DO [address] [address] Referring VtyuhphpgFiwtglvav00/28/24 Ynes Snyder NP [address] [address] Nurse EkxkfyponabyAtngzafsq03/28/24 Jameson Mcleod NP [address] [address] Nurse JzsckzouqixlUiwwksitd04/28/24Team MemberRelationshipSpecialtyStart DateEnd Date Shaikh Day MD [address] [place] [address] PCP - Lilly OR10/13/23 Gerry Godwin MD [address] [place] [address] PCP - GeneralFamily Bpfzlbfh19/31/24 Cindy Collado, SANDRA [address] [place] [address] Nurse PractitionerFamily Medicine10/03/23 Aime Clark DO [address] [place] [address] Pdpayktsedolva16/21/24 Nakul Zazueta DO [address] [address] Referring FnuwmxdfkPjoudnfms89/28/24 Ynes Snyder NP [address] [address] Nurse LezbcjqzomyiOwilawngk30/28/24 Jameson Mcleod NP [address] [address] Nurse YovkscdxtjobMpcctjugs49/28/24 Milton Piña MA Family Mjjqeuls49/10/24Team MemberRelationshipSpecialtyStart DateEnd Date Shaikh Day MD [address] [place] [address] PCP - Lilly OR10/13/23 Gerry Godwin MD [address] [place] [address] PCP - GeneralFamily Vrrcnsrn68/31/24 Cindy Collado NP [address] [place] [address] Nurse PractitionerFamily Medicine10/03/23 Aime Clark DO [address] [place] [address] Sjttbhtnlfkmos88/21/24 Nakul Zazueta DO [address] [address] Referring IhnhiumovGgxrnhpdm55/28/24 Ynes Snyder NP [address] [address] Nurse OahhlabmlpaeVvmvamjnl78/28/24 Jameson Mcleod NP [address] [address] Nurse CgiwofrdamdsXewkzjhxa72/28/24 Milton Piña MA [facility]01/21/24Team MemberRelationshipSpecialtyStart DateEnd Date Gerry Godwin MD [address] [place] [address] PCP - GeneralFamily Medicine10/03/23 Cindy Collado NP [address] [place] [address] Nurse PractitionerFamily Medicine10/03/23Team MemberRelationshipSpecialtyStart DateEnd Date Gerry Godwin MD [address] [place] [address] PCP - GeneralFamily Medicine10/03/23 Cindy Collado NP [address] [place] [address] Nurse PractitionerSouth [facility]10/03/23Team MemberRelationshipSpecialtyStart DateEnd Date Gerry Godwin MD [address] [place] [address] PCP - [facility]10/03/23 Cindy Collado, SANDRA [address] [place] [address] Nurse PractitionerSouth [facility]10/03/23 Team Status: Inactive Member Role Status Dates Shaikh Barb MD Primary Care Provider Active Start: February 20, 2024 End: February 20, 2024Denver Juarez MDAttending ProviderActiveStart: February 20, 2024 End: February 20, 2024Team MemberRelationshipSpecialtyStart DateEnd Date Shaikh Day MD [address] [place] [address] PCP - Lilly [place]10/13/23 Gerry Godwin MD [address] [place] [address] PCP - [facility]South [facility]12/12/23 Cindy Collado, SANDRA [address] [place] [address] Nurse Practitioner[facility]10/03/23 Aime Clark DO [address] [place] [address] Qagmgfucbaeykt04/21/24 Nakul Zazueta DO [address] [address] Referring FuavgfoegHlelmzaia87/28/24 Ynes Snyder NP [address] [address] Nurse WptlpmfoyokpLyugckyuz97/28/24 Jameson Mcleod NP [address] [address] Nurse MqacltlpfddaRanehdgcz64/28/24 Milton Piña MA [facility]01/21/24Team MemberRelationshipSpecialtyStart DateEnd Date Gerry Godwin MD [address] [place] [address] PCP - GeneralFamily Medicine04/07/18Team MemberRelationshipSpecialtyStart DateEnd Date Gerry Godwin MD [address] [place] [address] PCP - GeneralFamily Medicine04/07/18Team MemberRelationshipSpecialtyStart DateEnd Date Gerry Godwin MD [address] [facility] [place] [address] PCP - GeneralFamily Medicine04/07/18Team MemberRelationshipSpecialtyStart DateEnd Date Gerry Godwin MD [address] [place] [address] PCP - GeneralFamily Medicine04/07/18Team MemberRelationshipSpecialtyStart DateEnd Date Gerry Godwin MD [address] [place] [address] PCP - GeneralFamily Medicine04/07/18Team MemberRelationshipSpecialtyStart DateEnd Date Gerry Godwin MD [address] [facility] [place] [address] PCP - GeneralFamily Medicine04/07/18Team MemberRelationshipSpecialtyStart DateEnd Date Gerry Godwin MD [address] [facility] [place] [address] PCP - GeneralFamily Medicine04/07/18Team MemberRelationshipSpecialtyStart DateEnd Date Gerry Godwin MD [address] [facility] [place] [address] PCP - GeneralFamily Medicine04/07/18Team MemberRelationshipSpecialtyStart DateEnd Date Gerry Godwin MD [address] [place] [address] PCP - GeneralFamily Dfahdupi64/31/24 Cindy Collado, SANDRA [address] [place] [address] PCP - Lilly MA03/14/24 Cindy Collado NP [address] [place] [address] Nurse PractitionerFamily Medicine10/03/23 Aime Clark, DO [address] [place] [address] Hjtacyucjupbeg55/21/24 Nakul Zazueta DO [address] [address] Referring ZufxccntoRanxouwku22/28/24 Ynes Snyder NP [address] [address] Nurse TrcgpnevbahaXtwkidcub90/28/24 Jameson Mcleod NP [address] [address] Nurse SjrjnlerxbjxVphtnpchv62/28/24 Milton Piña MA Family Vutfecgx09/10/24Team MemberRelationshipSpecialtyStart DateEnd Date Gerry Godwin MD [address] [place] [address] PCP - GeneralFamily Zrrtroug11/31/24 Cindy Collado NP [address] [place] [address] PCP - Lilly OR03/14/24 Cindy Collado NP [address] [place] [address] Nurse PractitionerFamily Medicine10/03/23 Aime Clark DO [address] [place] [address] Lfooslbbadliee61/21/24 Nakul Zazueta DO [address] [address] Referring ZukxkvfewCwxekujxj15/28/24 Ynes Snyder, SANDRA [address] [address] Nurse RdrpkrmpcdxzTrwibtlts99/28/24 Jameson Mcleod NP [address] [address] Nurse UwmpurmgonoqQjupnuibp62/28/24 Milton Piña MA Family Vdzwlcel15/10/24Team MemberRelationshipSpecialtyStart DateEnd Date Gerry Godwin MD [address] [place] [address] PCP - Generalmily Ttrpjdqu66/31/24 Gerry Godwin MD [address] [place] [address] PCP - [facility]04/11/24 Cindy Collado NP [address] [place] [address] Nurse PractitionerFamily Medicine10/03/23 Aime Clark DO [address] [place] [address] Ujxzrwytjplrxr89/21/24 Nakul Zazueta DO [address] [address] Referring FdkypouenCweabcnsi49/28/24 Ynes Snyder NP [address] [address] Nurse QrhpdyrnuodxYvqbidztk32/28/24 Jameson Mcleod NP [address] [address] Nurse ZnyajsmtbmhtLhnsbqrlj71/28/24 Milton Piña MA [facility] Kqpjibvy11/10/24Team MemberRelationshipSpecialtyStart DateEnd Date Gerry Godwin MD [address] [place] [address] PCP - GeneralFamily Uqekaeho80/31/24 Gerry Godwin MD [address] [place] [address] PCP - [facility]04/11/24 Cindy Collado NP [address] [place] [address] Nurse PractitionerFamily Medicine10/03/23 Aime Clark DO [address] [place] [address] Mvhxwfnituaitc40/21/24 Nakul Zazueta DO [address] [address] Referring IjoowlxblQyztdqhnc78/28/24 Ynes Snyder, SANDRA [address] [address] Nurse IfucqbzyxqadXzbxiejld92/28/24 Jameson Mcleod NP [address] [address] Nurse WvwdgnhcdvbxFbbpurlfg39/28/24 Milton Piña MA Family Owsnrypz16/10/24Team MemberRelationshipSpecialtyStart DateEnd Date Gerry Godwin MD [address] [place] [address] PCP - GeneralFamily Oezwcabb62/31/24 Gerry Godwin MD [address] [place] [address] PCP - [facility]04/11/24 Cindy Collado NP [address] [place] [address] Nurse PractitionerFamily Medicine10/03/23 Aime Clark DO [address] [place] [address] Ebyimaqjcwzjkl43/21/24 Nakul Zazueta DO [address] [address] Referring KchrdyjpxTbilujfcx42/28/24 nYes Snyder, SANDRA [address] [place] [address], [place] [address] Nurse TmzlyzgwlqepJulmrzyhy49/28/24 Jameson Mcleod, SANDRA [address] [address] Nurse CpvbabrbgcgkUsthjrsfz70/28/24 Milton Piña MA Family Aanwieut38/10/24Team MemberRelationshipSpecialtyStart DateEnd Date Gerry Godwin MD [address] [place] [address] PCP - Generalmily Leozosrb10/31/24 Gerry Godwin MD [address] [place] [address] PCP - [facility]04/11/24 Cindy Collado NP [address] [place] [address] Nurse PractitionerFami Medicine10/03/23 Aime Clark DO [address] [facility] [place] [place] [address] Hkcsivcotxcgdd04/21/24 Nakul Zazueta DO [address] [address] Referring BwzhoxdinRedoozqkl80/28/24 Ynes Snyder NP [address] [address] Nurse HszzemyvniiqZjkjlwdym45/28/24 Jameson Mcleod, SANDRA [address] [address] [place] [address] Nurse RmhxkqwyxwrlIszzbckyv72/28/24 Milton Piña MA Family Dlnrkaqz84/10/24Team MemberRelationshipSpecialtyStguaynabo DateEnd Date Gerry Godwin MD [address] [place] [address] PCP - Generalmily Olucticd57/31/24 Gerry Godwin MD [address] [place] [address] PCP - [facility]04/11/24 Cindy Collado NP [address] [place] [address] Nurse PractitionerFamily Medicine10/03/23 Aime Clark DO [address] [place] [address] Bgkahprybavucl36/21/24 Nakul Zazueta DO [address] [address] Referring YhzmskuoqBuyesnqkn34/28/24 Ynes Snyder NP [address] [place] [address] Nurse JunewucjwqufAyjiqzhon11/28/24 Jameson Mcleod NP [address] [place] [address] Nurse MscmfmjjxthhNmyjygvqp64/28/24 Milton Piña MA [facility]01/21/24Team MemberRelationshipSpecialtyStart DateEnd Date Gerry Godwin MD [address] [place] [address] PCP - GeneralFaokly Aryaitpc69/31/24 Gerry Godwin MD [address] [place] [address] PCP - [facility]04/11/24 Cindy Collado NP [address] [place] [address] Nurse PractitionerFamily Medicine10/03/23 Aime Clark DO [address] [place] [address] Wtpungzehidgdu31/21/24 Nakul Zazueta DO [address] [address] Referring OytkctmypTcowhjbrl51/28/24 Ynes Snyder NP [address] [address] Nurse XzhealhqfsspXmhptsnnq58/28/24 Jamesno Mcleod NP [address] [address] Nurse ZnbydfofjfqmBpynkbsom09/28/24 Milton Piña MA [facility]01/21/24Team MemberRelationshipSpecialtyStart DateEnd Date Gerry Godwin MD [address] [place] [address] PCP - GeneralFamily Enchmlgn46/31/24 Gerry Godwin MD [address] [place] [address] PCP - Donald [place]04/11/24 Cindy Collado NP [address] [place] [address] Nurse PractitionerFamily Medicine10/03/23 Aime Clark DO [address] [place] [address] Miciiqdzhegcau40/21/24 Nakul Zazueta DO [address] [address] Referring PawaqtqiiHzowofuqn11/28/24 Ynes Snyder NP [address] [address] Nurse GpgzvlmardvrJbiocvdof17/28/24 Jameson Mcleod NP [address] [address] Nurse MelcpulvlvzxGtcbbsgxt11/28/24 Milton Piña MA Family Zdoxapcf45/10/24Team MemberRelationshipSpecialtyStart DateEnd Date Gerry Godwin MD [address] [place] [address] PCP - GeneralFamily Pfpoasun39/31/24 Cindy Collado, TIN RECOVERY WORKER [address] [place] [address] Nurse PractitionerFamily Medicine10/03/23 Aime Clark, DO [address] [place] [place] [address] Yxvwpyhzoqterj34/21/24 Nakul Zazueta DO [address] [address] Referring UncggqwqgDbzambsiu38/28/24 Ynes Snyder NP [address] [address] Nurse KwxdmiuikvwbWcifwejgp33/28/24 Jameson Mcleod NP [address] [address] Nurse XblmsghnocmmXoegrewlt74/28/24 Milton Piña MA Family Nccvrshe23/10/24Team MemberRelationshipSpecialtyStart DateEnd Date Gerry Godwin MD [address] [place] [address] PCP - GeneralFamily Shjyjhmf69/31/24 Cindy Collado, SANDRA [address] [address] Nurse PractitionerFamily Medicine10/03/23 Aime Clark, DO [address] [place] [address] Tcldxytkxsuqmc12/21/24 Nakul Zazueta DO [address] [address] Referring FsdiprrrnEymxpuvek59/28/24 Ynes Snyder, SANDRA [address] [place] [address] Nurse GpvgqtzjjwxvNllgsjacr59/28/24 Jameson Mcleod NP [address] [address] Nurse UgupivurkllsYkthuomgn45/28/24 Milton Piña MA Family Xuorpvqd95/10/24Team MemberRelationshipSpecialtyStart DateEnd Date Gerry Godwin MD [address] [place] [address] PCP - GeneralFamily Cxilwemo41/31/24 Cindy Collado NP [address] [place] [address] Nurse PractitionerFamily Medicine10/03/23 Aime Clark DO [address] [place] [address] Hcwsrtjqgcmzgo97/21/24 Nakul Zazueta DO [address] [address] Referring NuxaujrpwJunqxheah99/28/24 Ynes Snyder, SANDRA [address] [place] [address] Nurse IgvukriembveGwliwfgax58/28/24 Jameson Mcleod, SANDRA [address] [address] [place] [address] Nurse FiyhpgnmmdeaDhrblkblk04/28/24 Milton Piña MA [facility]01/21/24Team MemberRelationshipSpecialtyStart DateEnd Date Gerry Godwin MD [address] [place] [phone] PCP - GeneralFamily Xmffqyro99/31/24 Cindy Collado NP [address] [place] [phone] Nurse PractitionerFamily Medicine10/03/23 Aime Clark DO [address] [place], [place] [id number] Jhrexdqxhvvdao39/21/24 Nakul Zazueta DO [address] [address] [place] [phone] Referring HvrjiwqjqVqzfsfuxx42/28/24 Ynes Snyder NP [address] [address] [place] [phone] Nurse NcsytuejgwtaLwvpfzadw61/28/24 Jameson Mcleod, SANDRA [address] [address] [place] [address] Nurse AiyropknufcjUuxautrgb92/28/24 Milton Piña MA [facility]01/21/24Team MemberRelationshipSpecialtyStart DateEnd Date Gerry Godwin MD [address] [place] [address] PCP - GeneralFaokly Hieftync82/31/24 Gerry Godwin MD [address] [place] [address] PCP - Donald OR04/11/24 Cindy Collado NP [address] [place] [address] Nurse PractitionerFaboston nursery for blind babies Medicine10/03/23 Aime Clark DO [address] [place] [address] Rnjegzgawupxam81/21/24 Nakul Zazueta DO [address] [address] Referring SztabsisnEbydmtgkp25/28/24 Ynes Snyder NP [address] [address] Nurse NgqnpggvjlakZagntlaws30/28/24 Jameson Mcleod NP [address] [address] Nurse NusrpxydisuyIlelgmvqn39/28/24 Milton Piña MA [address] [place] [address] Family Zkkrusht22/10/24Team MemberRelationshipSpecialtyStart DateEnd Date Gerry Godwin MD [address] [place] [address] PCP - GeneralFamily Fdwmnyjd35/31/24 Gerry Godwin MD [address] [place] [address] PCP - Donald OR04/11/24 Cindy Collado NP [address] [place] [address] Nurse PractitionerFamily Medicine10/03/23 Aime Clark DO [address] [place] [address] Ahojdnacftpfji95/21/24 Nakul Zazueta DO [address] [address] Referring SvnkszyntSrhtcuhqw57/28/24 Ynes Snyder NP [address] [address] Nurse IozclizdmdyrKvhrapqdn20/28/24 Jameson Mcleod NP [address] [address] Nurse AsqgqeaukaovSgnywboij34/28/24 Milton Piña, HAROLDO [address] [place] [address] Family Tpyicqtx51/10/24Team MemberRelationshipSpecialtyStart DateEnd Date Gerry Godwin MD [address] [place] [address] PCP - GeneralFamily Ifyllktb46/31/24 Gerry Godwin MD [address] [place] [address] PCP - Donald OR04/11/24 Cindy Collado NP [address] [place] [address] Nurse PractitionerFamily Medicine10/03/23 Aime Clark DO [address] [place] [address] Rccbrgoczyrpuz00/21/24 Nakul Zazueta DO [address] [address] Referring XvjdzxphnMxycxgyzn78/28/24 Ynes Snyder NP [address] [address] Nurse MradptwbjbffJcsnmxfdh98/28/24 Jameson Mcleod NP [address] [address] Nurse TttcjwtcmelsLeyfidgyz46/28/24 Milton Piña, HAROLDO [address] [place] [address] Family Atggczjf74/10/24Team MemberRelationshipSpecialtyStart DateEnd Date Gerry Godwin MD [address] [place] [address] PCP - GeneralFamily Rmadjqzd66/31/24 Gerry Godwin MD [address] [place] [address] PCP - Donald ZARCO04/11/24 Cindy Collado, SANDRA [address] [place] [address] Nurse PractitionerFamily Medicine10/03/23 Aime Clark DO [address] [place], [place] [address] Fqhzoocundvadv05/21/24 Nakul Zazueta DO [address] [address] Referring TibldbyvdXjlvsdhzm66/28/24 Ynes Snyder, SANDRA [address] [address] Nurse XqvsrusnsqmsOtczfizez64/28/24 Jameson Mcleod NP [address] [address] Nurse TzpzapaqtvjkGeijqnwki83/28/24 Milton Piña MA [address] [place] [address] Family Hcenknlp56/10/24Team MemberRelationshipSpecialtyStart DateEnd Date Gerry Godwin MD [address] [place] [address] PCP - GeneralFamily Nqpwkwio93/31/24 Gerry Godwin MD [address] [place] [address] PCP - Donald ZARCO04/11/24 Cindy Collado NP [address] [place] [address] Nurse PractitionerFamily Medicine10/03/23 Aime Clark DO [address] [place] [address] Cyzrmlvwmcbuii62/21/24 Nakul Zazueta DO [address] [address] Referring JcmtszjwxVcosnbybp16/28/24 Ynes Snyder NP [address] [address] Nurse AwzcgbmzdtixGigbdauiz25/28/24 Jameson Mcleod NP [address] [address] Nurse JyhejjemtznyCdvwfpmxf25/28/24 Milton Piña MA [address] [place] [address] Family Cnkdiish36/10/24 Team Status: Active Member Role Status Dates Cindy Collado Primary Care Provider Active Team Status: Inactive Member Role Status Dates EVI Dao Attending Provider Active Start: August 13, 2024 End: August 13, 2024Cindy ColladoPrimary Care ProviderActiveStart: August 13, 2024 End: August 13, 2024Team MemberRelationshipSpecialtyStart DateEnd Date Gerry Godwin MD [address] [place] [address] PCP - GeneralFamily Gqfseemg74/31/24 Gerry Godwin MD [address] [place] [address] PCP - Donald OR04/11/24 Cindy Collado NP [address] [place] [address] Nurse PractitionerFami Medicine10/03/23 Aime Clark DO [address] [place] [address] Jknpnpbkkqgvnk45/21/24 Nakul Zazueta DO [address] [address] Referring TzipxlqobYlrabmkmm54/28/24 Ynes Snyder NP [address] [address] Nurse ChqecrfwkitqIegahtebf04/28/24 Jameson Mcleod NP [address] [address] Nurse MziashkblpqnRkieezncr14/28/24 Milton Piña MA [address] [place] [address] Family Ogbrtnhv43/10/24Team MemberRelationshipSpecialtyStart DateEnd Date Gerry Godwin MD [address] [place] [address] PCP - GeneralFamily Yaykxhdf59/31/24 Gerry Godwin MD [address] [place] [address] PCP - Donald OR04/11/24 Cindy Collado, SANDRA [address] [place] [address] Nurse PractitionerFamily Medicine10/03/23 Aime Clark DO [address] [place] [address] Dtwkrkrquvukyf75/21/24 Nakul Zazueta DO [address] [address] Referring XvjdftlayBzzfbvseb19/28/24 Ynes Snyder, SANDRA [address] [address] Nurse FnxsjdgwbaalAnlnxwxvw90/28/24 Jameson Mcleod NP [address] [address] Nurse SprhzneugmmaAoatvvvxn75/28/24 Milton Piña, HAROLDO [address] [place] [address] Family Tozoenbd71/10/24Team MemberRelationshipSpecialtyStart DateEnd Date Gerry Godwin MD [address] [place] [address] PCP - GeneralFamily Jkkxhxfj59/31/24 Gerry Godwin MD [address] [place] [address] PCP - Lilly OR04/11/24 Cindy Collado, SANDRA [address] [place] [address] Nurse PractitionerFamily Medicine10/03/23 Aime Clark, DO [address] [place] [address] Joxfdogbbhbmwq40/21/24 Nakul Zazueta DO [address] [address] Referring UczlaysqmHajhnosaa92/28/24 Ynes Snyder NP [address] [address] Nurse FkxiwumdlafyYzzsgwqhp23/28/24 Jameson Mcleod NP [address] [address] Nurse CwvvmxhunzjtClpxqgihh81/28/24 Milton Piña, HAROLDO [address] [place] [address] Family Vpsqcfdo93/10/24Team MemberRelationshipSpecialtyStart DateEnd Date Gerry Godwin MD [address] [place] [address] PCP - GeneralFamily Ajzeimms43/31/24 Gerry Godwin MD [address] [place] [address] PCP - Donald ZARCO04/11/24 Cindy Collado NP [address] [place] [address] Nurse PractitionerFamily Medicine10/03/23 Aime Clark DO [address] [place], [place] [address] Knittlcqyatvzv00/21/24 Nakul Zazueta DO [address] [address] Referring VrtbokjegSlzlzstex24/28/24 Ynes Snyder, SANDRA [address] [address] Nurse UntyrfngvjgaYtnhmskwo83/28/24 Jameson Mcleod NP [address] [address] Nurse LiacetjzulmnPxympbgus78/28/24 Milton Piña OR [address] [place] [address] Family Bpzcakix86/10/24Team MemberRelationshipSpecialtyStart DateEnd Date Gerry Godwin MD [address] [place] [address] PCP - GeneralFamily Iztlrstc58/31/24 Gerry Godwin MD [address] [place] [address] PCP - Donald ZARCO04/11/24 Cindy Collado NP [address] [place] [address] Nurse PractitionerFamily Medicine10/03/23 Aime Clark DO [address] [place] [address] Hsvlobbotipxsq47/21/24 Nakul Zazueta DO [address] [address] Referring SsygauekwPbehwczmx09/28/24 Ynes Snyder NP [address] [address] Nurse HkyrkkxleohqVhhakyjwf05/28/24 Jameson Mcleod NP [address] [address] Nurse YridxgcsmytcXjpdzswkg86/28/24 Milton Piña MA [address] [place] [address] Family Oqrbkozo10/10/24 Team Status: Active Member Role Status Dates Cindy Collado NP-C Primary Care Provider Active Team Status: Active Member Role Status Dates Cindy Collado NP-Pedro Primary Care Provider Active Start: November 24, 2024 Cindy Collado NP-CAttending ProviderActiveStart: November 24, 2024 Team Status: Inactive Member Role Status Dates Cindy Collado NP-C Primary Care Provider Active Start: November 26, 2024 End: November 26, 2024Cindy Collado , [employer]IN RECOVERY WORKER-CAttending ProviderActiveStart: November 26, 2024 End: November 26, 2024 Team Status: Active Member Role/Relationship Status Dates Cindy Collado , TIN RECOVERY WORKER-C Primary Care Provider Active Team Status: Active Member Role/Relationship Status Dates Cindy Collado , TIN RECOVERY WORKER-C Primary Care Provider Active Start: November 24, 2024 Cindy Collado , TIN RECOVERY WORKER-CAttending ProviderActiveStart: November 24, 2024 Team Status: Inactive Member Role/Relationship Status Dates Cindy Collado , TIN RECOVERY WORKER-C Primary Care Provider Active Start: November 26, 2024 End: November 26, 2024Cindy Collado , TIN RECOVERY WORKER-CAttending ProviderActiveStart: November 26, 2024 End: November 26, 2024 Team Status: Inactive Member Role/Relationship Status Dates Cindy Collado , TIN RECOVERY WORKER-C Primary Care Provider Active Start: December 03, 2024 End: December 03, 2024Jameson Mcleod APRN-FNP-CAttending ProviderActive Start: December 03, 2024 End: December 03, 2024Team MemberRelationshipSpecialtyStart DateEnd Date Shaikh Day MD PCP - GeneralInternal Medicine Gerry Godwin MD PCP - GeneralFamily Medicine10/02/2409 Shaikh Day MD [address] [place] [address] PCP - Lilly OR10/13/2411 Unallocated, Olga Nichole MD [address] [facility] [place] [address] PCP - GeneralFamily Dbhzkzff08/22/ Gerry Godwin MD PCP - GeneralFamily Nrvmmsda66/31/24 Gerry Godwin MD [address] [place] [address] PCP - Lilly OR04/11/24 Cindy Collado NP Nurse PractitionerFamily Medicine10/03/23 Aime Clark DO [address] [place] [address] Yvjharlypnxllt22/21/24 Nakul Zazueta DO [address] [address] Referring YmnkealmdTrgyxrttn63/28/24 Ynes Snyder NP [address] [address] Nurse XtjtdwtuifsyRqakmrddw88/28/24 Jameson Mcleod NP [address] [address] Nurse XcgrzigezkbuFhieufnsi19/28/24 Milton Piña MA [address] [place] [address] Family Jwojkeic84/10/248Team MemberRelationshipSpecialtyStart DateEnd Date Shaikh Day MD PCP - GeneralInternal Medicine Shaikh Day MD PCP - GeneralInternal Medicine Gerry Godwin MD PCP - GeneralFamily Medicine10/02/2409 Shaikh Day MD [address] [place] [address] PCP - Lilly MA10/13/2411 Unallocated, Olga Nichole MD [address] [place] [address] PCP - GeneralFamily Vxubdxrv14/22/ Gerry Godwin MD PCP - Generalmily Iqrlsoix64/31/24 Gerry Godwin MD [address] [place] [address] PCP - Lilly OR04/11/24 Cindy Collado NP Nurse PractitionerMary Greeley Medical Centerly Medicine10/03/23 Aime Clark DO [address] [place] [address] Xrdzvyevafirei02/21/24 aNkul Zazueta DO [address] [address] Referring XonjnwqntWbgoryocp37/28/24 Ynes Snyder NP [address] [place] [address] Nurse XvxjtfrwxvdwUpilgguhj23/28/24 Jameson Mcleod NP [address] [place] [address] Nurse DgqofhjijzqtMqmtkxkno48/28/24 Milton Piña, [place] [address] [place] [address] Family Kmefdgwb79/10/248/ Goals (unrecognized section and content) Goals may [...] BE BASED ON THE PRIMARY CLINICAL RECORDS. [facility]. provides no warranty or guarantee of the accuracy or completeness of information in this document.
== END 2025-02-09 14:49 | disposition home or self-care (01) ==
LOC: LAB 14:52
PROVIDERS: PCP Nurse Practitioner; Visit Provider Nurse Practitioner
DX: R10.32 Left lower quadrant pain (principal); N39.0 Urinary tract infection, site not specified
CPT/HCPCS: 36415; 74022; 80053; 85025; 85652; 86140